=== PATIENT | female | born 1950 | race Caucasian/White ===

== ENCOUNTER → 2018-04-04 16:24 | Outpatient (CLI) | payer MEDICARE, SELFPAY ==
[2018-04-04 17:47] LABS: Vitamin B12 383 pg/mL (211-911)
[2018-04-04 17:50] LABS: AST(SGOT) 25 U/L (15-37); Alanine Aminotransfer ALT/SGPT 30 U/L (13-56); Albumin, Serum 3.7 g/dL (3.2-5.0); Alkaline Phosphatase 106 U/L (45-117); Anion Gap 7 (5-15); BUN 23 mg/dL (7-18); BUN/Creat Ratio 23.4 RATIO (10-20); Chloride 104 mmol/L (98-107); Creatinine, Serum 0.98 mg/dL (0.55-1.02); EST Glomerular Filtration Rate 59 mL/min (>60); Est Glom Filt Rate - Afr Amer 72 mL/min (>60); Ferritin 188 ng/mL (8-252); Globulin 3.8 g/dL (2.2-4.2); Glucose 92 mg/dL (74-106); Potassium 4.2 mmol/L (3.5-5.1); Protein, Total 7.5 g/dL (6.4-8.2); Sodium Level 141 mmol/L (136-145); Thyroid Stim Hormone (TSH) 3.61 uIU/mL (0.358-3.74)
[2018-04-04 17:52] LABS: Absolute Neutrophil Count 3.1 X10^3/uL (2.0-7.7); Basophil# 0.04 X10^3/uL; Basophil% 0.6 % (0-1); Eosinophils% 3.2 % (0-5); Hematocrit 40.7 % (37-47); Hemoglobin 13.2 g/dl (12.0-15.0); Lymphocyte % 36.8 % (19-41); Mean Corp Hgb Conc 32.4 g/gl (32-36); Mean Corpuscular Hgb 29.7 pg (27.0-32.0); Mean Corpuscular Volume 91.7 fL (81-99); Mean Platelet Vol. 10.9 fl (6.2-12.0); Monocyte% 9.6 % (0-10); Neutrophil # 3.09 X10^3/uL (2.7-7.7); Neutrophil % 49.5 % (47-70); Platelet Count 222 K/mm3 (150-450); RBC Distribution Width CV 13.2 % (11.6-14.6); RBC Distribution Width SD 43.6 fl (35.1-43.9); Red Blood Count 4.44 M/mm3 (4.2-5.4); White Blood Count 6.3 K/mm3 (4.4-11.0)
[2018-04-04 17:53] LABS: POSITIVE COUNT NO; POSITIVE DIFFERENTIAL NO; POSITIVE MORPHOLOGY NO
== END ==
PROVIDERS: Family Provider Family Medicine; PCP Family Medicine; Referring Provider Family Medicine; Visit Provider Family Medicine
DX: F33.1 Major depressive disorder, recurrent, moderate (principal); D64.9 Anemia, unspecified
CPT/HCPCS: 36415; 80053; 82607; 82728; 84443; 85025

== ENCOUNTER → 2018-04-28 09:55 | Outpatient (CLI) | payer MEDICARE, SELFPAY ==
[2018-04-28 10:18] LABS: Absolute Lymphocyte Count 1.76 X10^3/ul (0.83-4.51); Absolute Neutrophil Count 4.8 X10^3/uL (2.0-7.7); Basophil# 0.04 X10^3/uL; Basophil% 0.5 % (0-1); Eosinophil# 0.22 X10^3/uL; Eosinophils% 2.9 % (0-5); Hematocrit 42.7 % (37-47); Hemoglobin 14.1 g/dl (12.0-15.0); Lymphocyte # 1.76 X10^3/ul (4.0); Lymphocyte % 23.3 % (19-41); Mean Corpuscular Hgb 30.7 pg (27.0-32.0); Mean Corpuscular Volume 92.8 fL (81-99); Mean Platelet Vol. 10.3 fl (6.2-12.0); Monocyte# 0.67 X10^3/uL; Monocyte% 8.9 % (0-10); Neutrophil # 4.82 X10^3/uL (2.7-7.7); Platelet Count 223 K/mm3 (150-450); RBC Distribution Width CV 13.5 % (11.6-14.6); RBC Distribution Width SD 44.9 fl (35.1-43.9); White Blood Count 7.5 K/mm3 (4.4-11.0)
[2018-04-28 10:23] LABS: POSITIVE COUNT NO; POSITIVE DIFFERENTIAL NO; POSITIVE MORPHOLOGY NO
[2018-04-28 10:24] LABS: Erythrocyte Sedimentation Rate 16 mm/hr (0-30)
[2018-04-28 10:35] LABS: ALB/GLOB Ratio 0.9 RATIO (0.9-2.4); AST(SGOT) 25 U/L (15-37); Alanine Aminotransfer ALT/SGPT 36 U/L (13-56); Albumin, Serum 3.7 g/dL (3.2-5.0); Alkaline Phosphatase 112 U/L (45-117); Anion Gap 9 (5-15); BUN 35 mg/dL (7-18); BUN/Creat Ratio 31.2 RATIO (10-20); CRP < 2.90 mg/L (0.0-3.0); Calcium,Total 9.5 mg/dL (8.5-10.1); Chloride 103 mmol/L (98-107); Creatinine, Serum 1.12 mg/dL (0.55-1.02); EST Glomerular Filtration Rate 51 mL/min (>60); Est Glom Filt Rate - Afr Amer 62 mL/min (>60); Globulin 4.1 g/dL (2.2-4.2); Glucose 100 mg/dL (74-106); Potassium 4.3 mmol/L (3.5-5.1); Protein, Total 7.8 g/dL (6.4-8.2); Sodium Level 142 mmol/L (136-145)
[2018-04-30 13:08] LABS: pH, Stool 5.5 (7.0-7.5)
== END ==
PROVIDERS: Family Provider Family Medicine; PCP Family Medicine; Referring Provider Family Medicine; Visit Provider Family Medicine
DX: R19.7 Diarrhea, unspecified (principal)
CPT/HCPCS: 36415; 80053; 83630; 83986; 85025; 85652; 86140; 87177; 87209; 87506

== ENCOUNTER → 2018-11-08 15:29 | Outpatient (CLI) | payer MEDICARE, SELFPAY ==
[2018-11-08 18:10] LABS: Absolute Lymphocyte Count 2.27 X10^3/ul (0.83-4.51); Basophil# 0.05 X10^3/uL; Basophil% 0.8 % (0-1); Eosinophil# 0.21 X10^3/uL; Eosinophils% 3.3 % (0-5); Hematocrit 41.7 % (37-47); Hemoglobin 13.6 g/dl (12.0-15.0); Lymphocyte # 2.27 X10^3/ul (4.0); Lymphocyte % 35.5 % (19-41); Mean Corp Hgb Conc 32.6 g/gl (32-36); Mean Corpuscular Hgb 29.7 pg (27.0-32.0); Mean Platelet Vol. 10.9 fl (6.2-12.0); Monocyte# 0.87 X10^3/uL; Monocyte% 13.6 % (0-10); Neutrophil # 2.96 X10^3/uL (2.7-7.7); Neutrophil % 46.3 % (47-70); Platelet Count 219 K/mm3 (150-450); RBC Distribution Width CV 13.6 % (11.6-14.6); RBC Distribution Width SD 44.7 fl (35.1-43.9); Red Blood Count 4.58 M/mm3 (4.2-5.4); White Blood Count 6.4 K/mm3 (4.4-11.0)
[2018-11-08 18:11] LABS: POSITIVE COUNT NO; POSITIVE DIFFERENTIAL NO; POSITIVE MORPHOLOGY NO
[2018-11-08 18:36] LABS: Microalbumin,Random Urine 21.7 mg/L (NO RANGE EST.); Microalbumin:Creatinine Ratio 23.6 mg/g CRE (<30 mg/g CRE)
[2018-11-08 18:43] LABS: ALB/GLOB Ratio 1.1 RATIO (0.9-2.4); AST(SGOT) 31 U/L (15-37); Alanine Aminotransfer ALT/SGPT 46 U/L (13-56); Albumin, Serum 3.8 g/dL (3.2-5.0); Alkaline Phosphatase 113 U/L (45-117); Anion Gap 5 (5-15); BUN 44 mg/dL (7-18); BUN/Creat Ratio 37.6 RATIO (10-20); Calcium,Total 8.9 mg/dL (8.5-10.1); Chloride 104 mmol/L (98-107); Creatinine, Serum 1.17 mg/dL (0.55-1.02); EST Glomerular Filtration Rate 49 mL/min (>60); Est Glom Filt Rate - Afr Amer 59 mL/min (>60); Globulin 3.4 g/dL (2.2-4.2); Glucose 77 mg/dL (74-106); Potassium 3.9 mmol/L (3.5-5.1); Protein, Total 7.2 g/dL (6.4-8.2); Sodium Level 138 mmol/L (136-145); Thyroid Stim Hormone (TSH) 1.97 uIU/mL (0.358-3.74)
== END ==
PROVIDERS: Family Provider Family Medicine; PCP Family Medicine; Referring Provider Family Medicine; Visit Provider Family Medicine
DX: I10 Essential (primary) hypertension (principal); F33.1 Major depressive disorder, recurrent, moderate
CPT/HCPCS: 36415; 80053; 82043; 82570; 84443; 85025

== ENCOUNTER → 2018-11-27 14:53 | Outpatient (CLI) | payer MEDICARE, SELFPAY ==
[2017-04-25 11:45] VITALS: BMI 27.5
--- NOTE | 2018-11-27 14:55 | BI_ITS ---
MAMMOGRAPHY - BILATERAL SCREENING REASON FOR EXAM: Female, 68 years old. Routine annual screening examination. PERTINENT HISTORY: Aunt with breast cancer. TECHNIQUE: Digital bilateral breast tasha (3D mammographic acquisition) in the CC and MLO projections. 2-D mediolateral oblique (MLO) and craniocaudad (CC) views of both breasts were obtained. CAD: Full Field Digital Mammography with Computer Added Detection was performed. COMPARISON: Comparison is made with prior study dated December 02, 2015 and January 27, 2012. FINDINGS: Breast Composition: The breasts are almost entirely fatty. There are no dominant masses or suspicious calcifications. No other significant abnormalities are identified. There has been no significant change since the prior study. BI/SCREENING MAMM (CAD), BILAT IMPRESSION: Stable bilateral screening mammogram. Yearly follow-up mammogram recommended. (A) ASSESSMENT CATEGORY: BIRADS Category 1: Negative. A letter regarding these results will be sent to the patient by the facility within 30 days. Approximately 10% of breast cancers are not detected by mammography. A normal mammogram should not delay biopsy of a clinically suspicious abnormality. [id number] Electronically Signed: Jermaine Herrera, at 9:10 EDT , Service support ,
== END ==
PROVIDERS: Family Provider Family Medicine; PCP Family Medicine; Referring Provider Family Medicine; Visit Provider Family Medicine
DX: Z12.31 Encounter for screening mammogram for malignant neoplasm of breast (principal)
CPT/HCPCS: 77063; 77067

== ENCOUNTER 2019-06-03 17:34 | Outpatient (RCR) | payer MEDICARE, SELFPAY ==
--- NOTE | 2019-06-03 19:14 | HP.PTEVAL ---
Patient's Visit Information OSCAR ROMAN is a 69 year old F referred to Physical Therapy by Shawn Farr MD with a diagnosis of BILATERAL FOOT DROP AND UNSTEADINESS. Date of Evaluation: 06/03/19 Physical Therapist: Shawn Lott, PT, Cert MDT, OCS - Visit Plan Frequency: 2x /Week Duration: 4 Weeks Plan: PT INTERVENTIONS LE STRENGTHENING,FUNCTIONAL STRENGTHENING,BALANCE PROGRAM,CONDITIONING - Subjective Findings: This 69 y/o female presents to physical therapy with bilateral foot drop and unsteady with gait. Patient has deficits with weakness in legs especially with foot drops and unsteady with gait. Patient also had son 2 years ago caused stress. Patient also polio as a child affects legs. Seen DR Farr for walking and balanace. Recommended PT . Patient has no falls ,but uses cane for walking and balance. Patient denies parathesia/tingling. Patient has lumbar surgery laminectomy and bilateral TSR ,LEFT THR,appy,bowel reconstruction,right foot surgery from polio. Patient condition affects ADL'S and housework tasks. SOCIAL: single. VOCATION: retired - Objective POSTURE: mild foward posture. GAIT: ambulates with antalgic gait with stepage gait with foot and altweral sway. BALANCE: good - with cane. STAIRS: one step at a time. ATROPHIED: R > L CAF. FLEXABLITY: mild hams tight. MMT: quad/hams 4-/5,hip flexion 3+/5 ,abd 3+/5 ankle dorsiflexion 3+/5 R,4-/5 L - Balance Scores Functional Gait Assessment Score: 9 % Disability: 70.0000 CATSIB Score (Max score 120 seconds): 75 - Goals Goal 1:: Independant with HEP Goal Time Frame: 4-6 Weeks Goal 2:: Patient to increase strength BLE by 4/5 quads/hams and hips 4-/5 to uimprove gait. Goal Time Frame: 4-6 Weeks Goal 3:: Pateint improve CATSIB score by 5 points > to improve gait. Goal Time Frame: 4-6 Weeks Goal 4:: Patient to improve functional gait assessment score by 5-10 points to improve gait/balance Goal Time Frame: 4-6 Weeks Goal 5:: Patient to improve LFES score by 5-10 points to improve QOL. Goal Time Frame: 4-6 Weeks - Rehabilitation Potential Physical Therapy Diagnosis: This patient has weakenss LE along with balance impairments causes deficits with ADL'S and housework tasks thus benifit from skilled PT Rehabilitation Potential: Good - Anticipated Interventions Patient/Client Instruction: Educate patient on: Condition, Plan of Care For the Purpose of:: To decrease pain, To increase ROM, To improve muscle performance and motor function, To improve ability to perform ADL's, To increase tolerance to activity/condition/position, To improve ability of physical actions for home/community/work/leisure, To improve health of tissue, To decrease soft tissue restriction, To reduce risk of recurrence, To improve ability to perform tasks related to life management Therapeutic Exercise to Include: Strength training, Endurance training, Balance training, Gait and locomotor training Comment: BLE For the Purpose of:: To decrease pain, To increase ROM, To improve muscle performance and motor function, To improve ability to perform ADL's, To increase tolerance to activity/condition/position, To improve ability of physical actions for home/community/work/leisure, To improve gait and locomotor functions, To increase flexibility/ROM, To improve endurance, To improve balance, To improve ability to perform tasks related to life management Thank you for the opportunity to evaluate your patient. For Medicare and Medicare HMO plans, please review the plan of care and approve it. It will need to be FAXED BACK to us at [phone] for Medicare purposes. For Medicare only, by signing this I certify the plan of care. Please let me know if there are questions or concerns regarding this plan of care. Physician Signature: Date:
== END 2019-06-03 19:00 | disposition home or self-care (01) ==
LOC: PT 17:34
PROVIDERS: Family Provider Family Medicine; PCP Family Medicine; Referring Provider Psychiatry & Neurology Neurology; Visit Provider Psychiatry & Neurology Neurology
DX: M21.372 Foot drop, left foot (principal); M21.371 Foot drop, right foot; R26.81 Unsteadiness on feet
CPT/HCPCS: 97110; 97162

== ENCOUNTER → 2019-12-25 08:27 | Outpatient (CLI) | payer MEDICARE, SELFPAY ==
[2017-04-25 11:45] VITALS: BMI 27.5
[2019-12-25 10:27] LABS: Absolute Lymphocyte Count 1.35 X10^3/uL (0.83-4.51); Absolute Neutrophil Count 4.6 X10^3/uL (2.0-7.7); Basophil# 0.06 X10^3/uL; Basophil% 0.9 % (0-1); Eosinophil# 0.16 X10^3/uL; Eosinophils% 2.4 % (0-5); Hematocrit 43.5 % (37-47); Hemoglobin 13.7 g/dL (12.0-15.0); Lymphocyte # 1.35 X10^3/ul (4.0); Mean Corp Hgb Conc 31.5 g/dL (32-36); Mean Corpuscular Hgb 29.2 pg (27.0-32.0); Mean Corpuscular Volume 92.8 fL (81-99); Mean Platelet Vol. 10.7 fl (6.2-12.0); Monocyte# 0.52 X10^3/uL; Monocyte% 7.7 % (0-10); NRBC Flagged by Analyzer 0 % (0-5); Neutrophil # 4.64 X10^3/uL (2.7-7.7); Neutrophil % 68.6 % (47-70); Platelet Count 234 K/mm3 (150-450); RBC Distribution Width CV 13.4 % (11.6-14.6); RBC Distribution Width SD 45.3 fl (35.1-43.9); Red Blood Count 4.69 M/mm3 (4.2-5.4); White Blood Count 6.8 K/mm3 (4.4-11.0)
[2019-12-25 10:41] LABS: Vitamin B12 342 pg/mL (211-911)
[2019-12-25 11:31] LABS: AST(SGOT) 24 U/L (15-37); Alanine Aminotransfer ALT/SGPT 32 U/L (13-56); Albumin, Serum 3.8 g/dL (3.2-5.0); Alkaline Phosphatase 111 U/L (45-117); Anion Gap 9 (5-15); BUN 26 mg/dL (7-18); BUN/Creat Ratio 24.1 RATIO (10-20); Calcium,Total 9.9 mg/dL (8.5-10.1); Chloride 100 mmol/L (98-107); Cholesterol 287 mg/dL (200); Creatinine, Serum 1.08 mg/dL (0.55-1.02); EST Glomerular Filtration Rate 53 mL/min (>60); Est Glom Filt Rate - Afr Amer 64 mL/min (>60); Ferritin 96 ng/mL (8-252); Globulin 3.7 g/dL (2.2-4.2); Glucose 105 mg/dL (74-106); High Density Lipoprotein 52 mg/dL; Iron 66 ug/dL (50-170); Iron Binding Capacity,Total 391 ug/dL (250-450); Potassium 4.2 mmol/L (3.5-5.1); Protein, Total 7.5 g/dL (6.4-8.2); Sodium Level 138 mmol/L (136-145); Thyroid Stim Hormone (TSH) 1.29 uIU/mL (0.358-3.74); Triglycerides 303 mg/dL; Very Low Density Lipoprotein 61 mg/dL (5-40)
== END ==
PROVIDERS: PCP Family Medicine; Referring Provider Family Medicine; Visit Provider Family Medicine
DX: G25.81 Restless legs syndrome (principal); R23.1 Pallor; I10 Essential (primary) hypertension
CPT/HCPCS: 36415; 80053; 80061; 82607; 82728; 82746; 83540; 83550; 84443; 85025

== ENCOUNTER → 2020-06-09 12:10 | Outpatient (CLI) | payer MEDICARE, SELFPAY ==
[2017-04-25 11:45] VITALS: BMI 27.5
[2020-06-09 15:34] LABS: Absolute Lymphocyte Count 1.59 X10^3/uL (0.83-4.51); Absolute Neutrophil Count 4.8 X10^3/uL (2.0-7.7); Basophil# 0.05 X10^3/uL; Basophil% 0.7 % (0-1); Eosinophil# 0.16 X10^3/uL; Eosinophils% 2.2 % (0-5); Hematocrit 43.8 % (37-47); Hemoglobin 13.6 g/dL (12.0-15.0); Lymphocyte # 1.59 X10^3/ul (4.0); Lymphocyte % 21.8 % (19-41); Mean Corp Hgb Conc 31.1 g/dL (32-36); Mean Corpuscular Hgb 28.6 pg (27.0-32.0); Monocyte# 0.64 X10^3/uL; Monocyte% 8.8 % (0-10); NRBC Flagged by Analyzer 0 % (0-5); Neutrophil # 4.84 X10^3/uL (2.7-7.7); Neutrophil % 66.1 % (47-70); Platelet Count 240 K/mm3 (150-450); RBC Distribution Width CV 13.4 % (11.6-14.6); RBC Distribution Width SD 45.7 fl (35.1-43.9); Red Blood Count 4.76 M/mm3 (4.2-5.4); White Blood Count 7.3 K/mm3 (4.4-11.0)
[2020-06-09 15:59] LABS: ALB/GLOB Ratio 1.1 RATIO (0.9-2.4); AST(SGOT) 25 U/L (15-37); Alanine Aminotransfer ALT/SGPT 33 U/L (13-56); Alkaline Phosphatase 109 U/L (45-117); Anion Gap 6 (5-15); BUN 36 mg/dL (7-18); BUN/Creat Ratio 30.3 RATIO (10-20); Calcium,Total 9.7 mg/dL (8.5-10.1); Chloride 101 mmol/L (98-107); Creatinine, Serum 1.19 mg/dL (0.55-1.02); EST Glomerular Filtration Rate 48 mL/min (>60); Est Glom Filt Rate - Afr Amer 57 mL/min (>60); Ferritin 116 ng/mL (8-252); Globulin 3.8 g/dL (2.2-4.2); Glucose 94 mg/dL (74-106); Potassium 4.4 mmol/L (3.5-5.1); Protein, Total 7.8 g/dL (6.4-8.2); Sodium Level 138 mmol/L (136-145); Thyroid Stim Hormone (TSH) 1.83 uIU/mL (0.358-3.74)
[2020-06-09 16:29] LABS: Prothrombin Time (Protime)PT. 12.6 SECONDS (11.7-14.9)
[2020-06-09 16:30] LABS: Partial Thromboplast Time 28.9 Seconds (24.1-36.2)
[2020-06-11 15:51] LABS: Magnesium 2.1 mg/dL (1.6-2.6)
== END ==
PROVIDERS: Anesthesiology; PCP Family Medicine; Visit Provider Family Medicine
DX: Z01.818 Encounter for other preprocedural examination (principal); G25.81 Restless legs syndrome; F32.9 Major depressive disorder, single episode, unspecified
CPT/HCPCS: 36415; 80053; 82728; 83735; 84443; 85025; 85610; 85730

== ENCOUNTER 2020-06-24 07:26 | Observation (INO) | payer MEDICARE, SELFPAY ==
[2017-04-25 11:45] VITALS: BMI 27.5
--- NOTE | 2020-06-09 11:12 | PCM.HP.BLA ---
History and Physical History and Physical Patient Name: Elinor Woo : 1950 From: [facility] NP DATE OF SURGERY: 06/24/2020 SCHEDULED PROCEDURE: Right total hip arthroplasty HISTORY OF PRESENT ILLNESS: Preoperative history and physical exam was performed on June 09, 2020. This is a 70-year-old female has been having ongoing right hip pain for a year that has significantly increased over the last 6 months. She describes the pain as intermittent and sharp. The pain is 3 on a scale of 10 at best and 9 on a scale of 10 with activity. The pain is made worse with stairs and walking. The patient reports start up pain. The pain is located over the lateral hip and in the right groin. The patient reports inability to perform her normal activities of daily living without pain including dressing and undressing. She reports inability to participate in leisure activities such as shopping without pain. The patient reports tripping and stumbling secondary to the right hip pain. Previous treatments attempted consist of rest with minimal relief. The patient has taken extra strength Tylenol, naproxen, ibuprofen and tramadol with minimal to no relief. She does ambulate with the use of a walker. The patient has a history of polio and chronic atrophy on the right side. The patient has a medical history pertinent for hypertension, hypercholesterolemia, anxiety, depression and restless leg syndrome. She denies chest pain, fevers, chills, shortness of breath, difficulty breathing or recent infections. Surgical clearance will be obtained from her primary care provider Dr. Grimes. After failing conservative measures and discussing treatment options with Dr. Fahad Cavanaugh the patient is to proceed with a right total hip arthroplasty. REVIEW OF SYSTEMS: ROS: Const: Denies anorexia, anxiety, change in appetite, fever and weight change,hard of hearing, and vision problems. CV: Denies chest pain, heart murmur, irregular heartbeat and peripheral vascular disease. Resp: Denies asthma, cough, pneumonia, sleep apnea, SOB, tuberculosis and wheezing. GI: Denies constipation, diarrhea, heartburn, nausea, bloody stools and vomiting, and difficulty swallowing. : Genital: reports irregular menstrual periods. Urinary: denies incontinence. Musculo: Reports trouble walking, limp and weakness(Rt leg), but denies leg swelling. Skin: Denies Raynaud's, history of shingles and tattoo. Neuro: Denies ambulatory dysfunction, dizziness, numbness/tingling and tremor. Psych: Denies anxiety, depression, insomnia, mental illness and stress. Prateek/Lymph: Denies anemia, bleeding/bruising tendency and past transfusion. Reviewed, no changes. PAST MEDICAL HISTORY: Advance Care Plan: Other Directive, P.O.A. Effective Date: 01/16/2017 Other Directive, LIVING WILL Effective Date: 01/16/2017 PMH: Medical Problems: High Blood Pressure, Restless Leg, Hypercholesterolemia, Anxiety, Depression Accidents: None Surgical Hx: Appendectomy - (1961) [place] Hip Replacement - (2003) L Allie - [place] Bowel Resection - (1989) [place] RT Leg - Multiple surgeries post polio 1956 thru 1993 RT Shoulder Replacement - (10/2006) DR. DILL @ [facility] Shoulder Arthroscopy/Acromioplasty - (03/08/2012) OLIVIA @ [facility] Laminectomy - (09/30/2014) OLIVIA @ [facility] Knee Arthroscopy LT - (02/19/2015) [email or web address] Reverse Total Shoulder Replacement - (04/25/2017) [email or web address] Anesthesia Complications: None Assistive Devices: Glasses, Walker, Cane Reviewed and updated. SOCIAL HISTORY: SH: Marital: .Occupation: Retired.Work Status: Retired.Hand Dominance: Right-handed. Personal Habits: Tobacco Use: Patient is a former smoker.Cigarette Use: Former - 1/2 pk/day for 35 yrs .Alcohol: Has consumed alcohol in the past.Drug Use: Denies Use.Enjoy Exercising: Daily. Reviewed and updated. VITALS: Ht: 66 Wt: 231lb Wt k.782 BMI: 37.3 BP: 129/83 Pulse: 90 Resp: 16 T: 97.0 T: 36.1C Pain Level: 4 ALLERGIES: Penicillin MEDICATIONS: Tramadol HCL 50 mg 1-2 by mouth every 6 hours as needed pain, Losartan 50 mg 1 tab PO bid, Melatonin 10 mg 1 TAB PO qhs, Indapamide 1.25 mg 1 tab PO daily, Pramipexole Dihydrochloride 1 mg 2 tabs PO qhs, Bupropion Hydrochloride ER (XL) 300 mg 1 by mouth every day, Atorvastatin Calcium 10 mg 1 by mouth every day, Gabapentin 600 mg 1 by mouth three times a day, Mirtazapine 15 mg 1 by mouth every day, Tylenol 325 mg prn, Ibuprofen 200 200 mg 2 by mouth as needed, Naproxen Sodium 220 mg prn PRE-OP EXAM: General appearance:NORMAL Other: Eyes: Conjunctivae and lids: NORMAL Pupils: ERR Ears, Nose, Mouth, and Throat: NORMAL Other: Inspection of lips, teeth and gums: NORMAL Other: Respiratory: Assessment of respiratory effort: NORMAL Other: Auscultation of lungs: clear to auscultation no wheezes, rhonchi or rales. Cardiovascular: Auscultation of heart: regular rate and rhythm, no murmurs, gallops or rubs. Gastrointestinal: Exam of abdomen: soft, nontender, nondistended bowel sounds present. Neurological: see below Psychiatric: Orientation to time, place and person: NORMAL Other: Mood and affect: NORMAL Other: PHYSICAL EXAMINATION: Patient ambulate with an antalgic gait. She does use a walker to ambulate. Skin is clean, dry and intact. Right leg is 3 mm shorter than the left. Chronic calf and thigh atrophy when compared to left side. Obligatory external rotation with flexion. Flexion to 80. Internal rotation to 10. External rotation to 20. Pain is rated produced with flexion, adduction and internal rotation. Hip flexion strength 3/5. Sensation intact to saphenous, sural, deep peroneal and tibial nerve distributions. IMAGING STUDIES: 3 views of right hip including weightbearing AP pelvis and AP hip and crossfire lateral obtained on June 01, 2020 reviewed reveals joint space narrowing, subchondral sclerosis and osteophyte formation consistent with severe stage IV hypertrophic osteoarthritis. IMPRESSION: 1. Osteoarthritis, right hip 2. Hypertension 3. Restless leg syndrome 4. Hypercholesterolemia 5. Depression and anxiety 6. Obesity, BMI 37.3 PLAN: Dr. Fahad Cavanaugh did discuss and review with the patient all treatment options including surgical versus nonsurgical. The patient does wish to proceed with the above-stated procedure. Potential risk, benefits and complications of the procedure were discussed in detail including but not limited to , infection, nerve and blood vessel damage, persistent pain, numbness, tingling, paresthesia, blood clot, pulmonary embolism and requirement for possible further surgery. The patient expressed full understanding and has no further questions for the doctor. The patient does agree to proceed with the above-stated procedure and has signed the surgery consent form. Patient was instructed to bring a walker with her to the hospital the day of her surgery. Discussed with the patient the risks associated with the COVID-19 virus including the risk of exposure while at the hospital. The patient was reassured local hospitals have low infection rates and taken all necessary precautions to limit patient exposure to COVID-19. Limiting the patient's time in the hospital may decrease their exposure to COVID-19. The patient was notified that we will need to comply with any screening or testing the hospital wishes to perform and that surgery may be delayed for any positive test results. This dictation was created using voice recognition software. Phonetic and/or grammatical errors may exist. ___ I have re-examined the patient. There are no clinical changes since date of exam. ___ See progress notes for changes. ___ Dictated on admission Date: Time: Signature:
--- NOTE | 2020-06-16 10:42 | EKG12_ITS ---
Test Reason : PREOP Blood Pressure : / mmHG Vent. Rate : 094 BPM Atrial Rate : 094 BPM P-R Int : 214 ms QRS Dur : 104 ms QT Int : 386 ms P-R-T Axes : 047 066 068 degrees QTc Int : 482 ms Sinus rhythm with 1st degree A-V block Otherwise normal ECG Confirmed by NIGHAT COTTER, DWAYNE ([id number]), digital editor TRINITY ORTIZ ([id number]) on 06/17/2020 9:39:49 AM Referred By: Fahad Cavanaugh Confirmed By:DWAYNE DISLA MD
[2020-06-23 13:19] VITALS: RESP 16; O2SAT 94
[2020-06-24] VITALS (15 sets, daily range): BP systolic 94–157; BP diastolic 63–92; PULSE 84–98; RESP 16–18; TEMP 36.1–37.2; O2SAT 94–100; BMI 36.6; BMI 37.3
[2020-06-24] MEDS: Lactated Ringers 1,000 ML 999 ML IV ×2 (06:30→09:16)
--- NOTE | 2020-06-24 07:27 | RAD_ITS ---
STUDY: X-RAY - PELVIS AND RIGHT HIP REASON FOR EXAM: Female, 70 years old. Post op total hip. TECHNIQUE: 2 views of the pelvis and hip. COMPARISON: None. FINDINGS: Status post right total hip replacement. There is good alignment. Postoperative soft tissue changes. The patient is also status post left total hip replacement. This is unchanged. RAD/Hip Min 2 Views (Portable) IMPRESSION: Status post right total hip replacement. Good alignment. Electronically Signed: Jermaine Herrera, at 12:40 EST , Service support ,
[2020-06-24 07:40] LABS: Bedside Glucose 76 mg/dL (70-110)
[2020-06-24] MEDS: Gabapentin 600 MG Tablet PO ×2 (07:52→21:41)
[2020-06-24] MEDS: dexAMETHasone 10 MG/ML Vial IV (08:56)
--- NOTE | 2020-06-24 09:45 | RAD_ITS ---
STUDY: X-RAY - PELVIS AND RIGHT HIP REASON FOR EXAM: Female, 70 years old. ERAS, RIGHT TOTAL HIP ANTERIOR APPROACH. TECHNIQUE: 3 views of the pelvis and hip. COMPARISON: None. FINDINGS: Intraoperative imaging provided for right total hip replacement. RAD/HIP, UNI W/ Pelvis 2-3 Views IMPRESSION: Intraoperative imaging provided for right total hip replacement. Electronically Signed: Jermaine Herrera, at 14:37 EST , Service support ,
--- NOTE | 2020-06-24 10:18 | PCM.OPRPT ---
Report of Operation Date of Procedure: 06/24/20 Pre-Operative Diagnosis: Right hip primary osteoarthritis Post-Operative Diagnosis: Right hip primary osteoarthritis Surgery/Procedure Performed:: Right minimally invasive direct anterior hip replacement Description of Surgical Findings:: Stable hip with equal leg lengths customs agent: John Caputo Type of Anesthesia:: Spinal Anesthesiologist: Elliott Quinn Special Medications: Cleocin and vancomycin, 1 g TXA at incision, 1 g TXA closure, 10 mg Decadron, joint cocktail (5 mg Duramorph, 30 mL of 0.5% Ropivicaine, 1000 units of epinephrine, 30 mg of Toradol) Specimen's removed: Bony cuts Estimated Blood Loss (mL): 350 Fluids Replaced: 1200 mL crystalloid Description of Procedure: Components used: 1. Accolade 2 [place] femoral stem size 4 127? 2. [place] trident 2 acetabular shell size 54 mm 3. [place] X3 polyethylene E 4. Bob Biolox delta 36mm, -2.5mm femoral head Brief history operative indications: 70 yo F who failed conservative measures for their hip osteoarthritis. X-rays were consistent with osteoarthritis including joint space narrowing, osteophyte formation and subchondral cysts. Total hip replacement was discussed with the patient with risks and benefits including but not limited to blood loss, DVTs, PEs, neurovascular damage, dislocation, general risks of anesthesia including loss of life. Patient demonstrated an understanding medical clearance is obtained the patient was consented for surgery. Procedure: On the date of procedure the patient's R hip was marked in the preoperative area. Patient was then taken back to the operating room where anesthesia assumed control of the C-spine and airway and administered anesthetic. Patient was transferred to the operating table and placed in the supine position. The hips were placed at the break of the bed and a sacral bump was placed. The R lower extremity was then prepped out in a sterile fashion using chlorhexidine while the surgeon scrubbed. The PA was vital in the positioning of the patient. Upon reentering the room the R lower extremity was draped in the standard orthopedic fashion and the incision was marked. A timeout was called and everyone agreed upon the side, the site, the procedure be performed, antibody given, and patient's identity. At this time incision was made through skin, subcutaneous tissue, and fat down to fascia. The fascia was then incised and the TFL was retracted laterally. A retractor was placed on the lateral border of the femoral neck. Attention was directed to the inferior portion of the approach and all crossing vessels were identified and appropriately coagulated. A retractor was then placed on the medial portion of the femoral neck. The anterior capsule was then cleared of all soft tissue and then H shaped capsulotomy was made. The retractors were then placed inside the capsule. The femoral neck was identified and a cleanup cut was made. At this time a power corkscrew was used to remove the femoral head. Attention was then turned toward the acetabulum where the soft tissues were appropriately retracted and the acetabulum was sequentially reamed to 542 mm. A 54 mm cup was then selected and impacted into place. Acetabular liner was impacted into place and locking mechanism was verified. The position of the acetabular cup was then verified under live fluoroscopy. Attention was then turned to the femur. Soft tissue releases on the medial and lateral femoral neck were appropriately done, the leg was externally rotated and lateralized. A King retractor was placed medially and proximally to the greater trochanter this allowed appropriate visualization and exposure of the femoral canal. Rongeour was then used to remove excess lateral bone. A canal finder and entry broach were used to open the proximal canal. Once we verified we were down the femoral canal we subsequently broached up to a size 4 femur. The appropriate neck was placed in the previously selected head was trialed with a -2.5 mm neck. Traction was pulled and the hip was reduced with internal rotation. Once it was appropriately reduced and stability was checked. Patient was unstable posteriorly. At this point took x-rays to verify appropriate leg lengths and offset as well as version of the acetabulum. Based on our findings we dislocated the hip we used the edge impactor to dial in more anteversion on the acetabulum. We then changed the neck to the high offset neck. We again reduced the hip with traction and internal rotation. This time we had minimal shuck, equal leg lengths and appropriate stability with hyperextension and external rotation as well as with 90? flexion and internal rotation. Fluoroscopy was then also used to verify the position of the components and leg lengths using the contralateral side for comparison. The trial components were then dislocated the proximal femur was again exposed and the components were removed from the wound. The final components were verified and opened. The wound was copiously irrigated out with normal saline. The acetabulum was checked for any residual debris. The final components were placed and impacted. Traction and internal rotation were again used to reduce the hip. After adequate reduction the hip remained stable with appropriate leg lengths. The final components were once again checked with live fluoroscopy and were found to be satisfactory. The wound was then copiously irrigated with normal saline once more, and hemostasis was obtained. Closure was then done using #1 Vicryl runner to close the fascia. A 2-0 vicryl interuppted sutures were used to close the subcutaneous skin. A 3-0 Monocryl and Steri-Strips were used for final skin closure. A Silverlon dressing was placed. Patient was awakened by anesthesia and transferred to the [facility]. Patient was then transferred to the PACU for recovery. Postoperative plan: Patient will get 24 hours postop antibiotics. Patient will get in-house physical therapy and will be weight-bear as tolerated. Patient will follow up in office in 2 weeks for a wound check and x-rays. Aspirin 81 mg twice daily. During the course of the procedure the physician computer repairer (PE) played a vital role. Their intimate knowledge of my steps in the procedure aided in safe and expedient completion of the procedure. The PE played a vital rolls in positioning particularly in obtaining the appropriate positioning of the sacral bump. The PE was also vital in the retraction of soft tissues during the exposure and especially the femoral work as this is a vital part of the procedure to prevent complications and fractures. The PE was also vital and protecting soft tissues during times of bony cuts and reaming. He also played a vital role in closure with my direct supervision. The PE was also important during reduction and dislocation of the joint and trials intraoperatively. - Complications No intraoperative complications - Admit VTE Documentation VTE Present on Admission: No VTE Mechan Device Prophylaxis: SCD's, Thigh High ELEAZAR Hose VTE Pharm Prophylaxis ordered?: Yes
[2020-06-24] MEDS: Lactated Ringers 1,000 ML 125 ML IV ×2 (12:21→15:13)
[2020-06-24] MEDS: Acetaminophen 500 MG Tablet 1000 MG PO ×2 (15:14→21:41)
[2020-06-24] MEDS: Aspirin 81 MG TAB.CHEW PO (15:15)
[2020-06-24] MEDS: Famotidine 20 MG Tablet PO (15:15)
[2020-06-24] MEDS: buPROPion (XL) 300 MG TABLET.XL PO (17:54)
[2020-06-24] MEDS: Losartan Potassium 50 MG Tablet PO (17:55)
[2020-06-24] MEDS: oxyCODONE 5 MG Tablet PO (17:57)
--- NOTE | 2020-06-24 20:43 | PN_ITS ---
Subjective: Patient was seen and examined today at the request of orthopedic surgery for medical management following a right minimally invasive direct anterior hip replacement. At the time my examination this afternoon, patient is standing with physical therapy with the use of a walker and does not appear to be in any distress. He does not complain of any shortness of breath, chills, or fever. Patient's chronic medical problems include essential hypertension and osteoarthritis. - Physical Exam Vitals/I&O's: Vital Signs Temp Pulse Resp BP Pulse Ox 97.0 F L 96 16 126/63 H 95 06/24/20 20:20 06/24/20 20:20 06/24/20 20:20 06/24/20 20:20 06/24/20 20:20 Oxygen Flow Rate (L/min) 6 Oxygen Delivery Method Room Air Weight: 105 kg Body Mass Index (BMI) 37.3 Intake and Output for Last 24 Hours 06/22/20 06/23/20 06/24/20 23:59 23:59 23:59 Intake Total 4241.5 / 4241.5 Output Total 1300 / 1300 Balance 2941.5 / 2941.5 General: Alert, Oriented x3, Cooperative, No apparent distress, Well developed, Well nourished HEENT: Atraumatic, PERRLA, EOMI, Normocephalic Oral: Moist Mucosa Neck: Supple, No JVD, Trachea Midline, Thyroid Normal Size and Texture Lungs: Clear to auscultation, Normal air movement, No rhonchi, No wheeze, No rales Cardiovascular: Regular rate, Regular Rhythm, Normal S1, Normal S2, No murmurs, PMI Normal, No rub noted, No Gallop Abdomen: Bowel Sounds Present, Soft, Non Tender, Non-Distended Extremities: No clubbing, No cyanosis, Capillary Refill Less than 3 Seconds Skin: No rashes Neurological: Cranial nerves II-XII grossly intact, Neuro grossly intact, Sensory exam intact to light touch and pain, Coordination normal Psych/Mental Status: Normal Affect, Appropriate, Alert and oriented to time, place, person, mood and affect Microbiology Past 72 Hours 06/23/20 10:40 Interface Orders SARS-CoV-2 Antigen (Rapid) - Final Laboratory Results 06/24/20 07:35: POC Glucose 76 Current Medications Acetaminophen (Acetaminophen 500 Mg Tablet) 1,000 mg PO Q8 [facility] Last Admin: 06/24/20 15:14 Dose: 1,000 mg Documented by: Aspirin (Aspirin 81 Mg Tab.Chew) 81 mg PO BIDCM [facility] Last Admin: 06/24/20 15:15 Dose: 81 mg Documented by: Atorvastatin Calcium (Atorvastatin Calcium 20 Mg Tablet) 20 mg PO QHS [facility] Bupropion HCl (Bupropion (Xl) 300 Mg Tablet.Xl) 300 mg PO DAILY [facility] Last Admin: 06/24/20 17:54 Dose: 300 mg Documented by: Enteral Nutritional Formula (Ensure Surgery 237 Ml Liquid) 237 ml PO TIDCM [facility] Last Admin: 06/24/20 15:16 Dose: Not Given Documented by: Famotidine (Famotidine 20 Mg Tablet) 20 mg PO DAILY [facility] Last Admin: 06/24/20 15:15 Dose: 20 mg Documented by: Gabapentin (Gabapentin 600 Mg Tablet) 600 mg PO QHS [facility] Lactated Ringer's () 1,000 mls @ 125 mls/hr IV .Q8H [facility] Last Infusion: 06/24/20 20:13 Dose: 0 mls/hr Documented by: Clindamycin Phosphate 600 mg/ (Dextrose) 54 mls @ 100 mls/hr IV Q6H [facility] Stop: 06/25/20 03:33 Last Infusion: 06/24/20 16:00 Dose: Infused Documented by: Vancomycin HCl 1,500 mg/ (Sodium Chloride) 530 mls @ 250 mls/hr IV X1 [facility] Stop: 06/24/20 22:07 Last Admin: 06/24/20 20:13 Dose: 250 mls/hr Documented by: Sodium Chloride () 250 mls @ 15 mls/hr IV .[id number] PRN PRN Reason: Saline Flush Sodium Chloride () 250 mls @ 15 mls/hr IV .[id number] PRN PRN Reason: Additional IVPB Infusion Indapamide (Indapamide 2.5 Mg Tablet) 1.25 mg PO DAILY [facility] Ketorolac Tromethamine (Ketorolac 15 Mg/Ml Vial) 15 mg IV Q6H PRN PRN PRN Reason: Pain Score 1-5 Stop: 06/26/20 07:27 Losartan Potassium (Losartan Potassium 50 Mg Tablet) 50 mg PO BID [facility] Last Admin: 06/24/20 17:55 Dose: 50 mg Documented by: Melatonin (Melatonin 10 Mg Tablet) 10 mg PO QHS [facility] Meloxicam (Meloxicam 7.5 Mg Tablet) 7.5 mg PO BID [facility] Morphine Sulfate (Morphine 2 Mg/Ml Syringe) 2 - 4 mg IV Q2H PRN PRN PRN Reason: Pain Score 4-10 Morphine Sulfate (Morphine 4 Mg/Ml Syringe) 2 - 4 mg IV Q2H PRN PRN PRN Reason: Pain Score 4-10 Ondansetron HCl (Ondansetron 4 Mg/2 Ml Vial) 4 mg IV Q8H PRN PRN PRN Reason: NAUSEA Oxycodone HCl (Oxycodone 5 Mg Tablet) 5 - 10 mg PO Q4H PRN PRN PRN Reason: Pain Score 4-10 Last Admin: 06/24/20 17:57 Dose: 5 mg Documented by: Pramipexole Dihydrochloride (Pramipexole Di-Hcl 0.5 Mg Tablet) 0.5 mg PO QHS [facility] Promethazine HCl (Promethazine 25 Mg/Ml Syringe) 12.5 mg IM Q6H PRN PRN; Viridiana col PRN Reason: NAUSEA/VOMITING Senna/Docusate Sodium (Senna/Docusate Sodium 1 Tablet) 2 tablet PO BID [facility] Last Admin: 06/24/20 17:05 Dose: Not Given Documented by: Sodium Chloride (0.9% Saline Lock 10 Ml Syringe) 10 - 40 ml IV UD PRN PRN Reason: SALINE FLUSH Medical Necessity - Tobacco Use Smoking Status: Former smoker Tobacco Use: Non-smoker Assessment/Plan All Active Problems Insomnia (Acute) #1 essential hypertension-patient is currently on indapamide and losartan, blood pressure will be monitored #2 osteoarthritis #3 hyperlipidemia #4 chronic depression #5 postop day 0 right hip replacement. Inpatient E&M: 55613 Subs Hosp L2
[2020-06-24] MEDS: MELATONIN 10 MG TABLET PO (21:41)
[2020-06-24] MEDS: Senna/Docusate Sodium 1 Tablet 2 TABLET PO (21:41)
[2020-06-24] MEDS: Pramipexole Di-HCl 0.5 MG Tablet PO (21:41)
[2020-06-24] MEDS: Mirtazapine 15 MG Tablet PO (21:41)
[2020-06-24] MEDS: Atorvastatin Calcium 20 MG Tablet PO (21:42)
[2020-06-25] MEDS: Ketorolac 15 MG/ML Vial IV (02:07)
[2020-06-25] MEDS: 0.9% Saline Lock 10 ML Syringe IV (02:07)
[2020-06-25 02:22] VITALS: BP 97/67; PULSE 93; RESP 16; TEMP 36.7; O2SAT 97
[2020-06-25 05:57] LABS: Hematocrit 31.7 % (37-47); Hemoglobin 10.1 g/dL (12.0-15.0); Mean Corp Hgb Conc 31.9 g/dL (32-36); Mean Corpuscular Hgb 29.1 pg (27.0-32.0); Mean Corpuscular Volume 91.4 fL (81-99); Mean Platelet Vol. 10.6 fl (6.2-12.0); Platelet Count 168 K/mm3 (150-450); RBC Distribution Width CV 13.2 % (11.6-14.6); RBC Distribution Width SD 44.2 fl (35.1-43.9); Red Blood Count 3.47 M/mm3 (4.2-5.4); White Blood Count 13.4 K/mm3 (4.4-11.0)
[2020-06-25] MEDS: oxyCODONE 5 MG Tablet PO ×2 (06:03→12:02)
[2020-06-25] MEDS: Acetaminophen 500 MG Tablet 1000 MG PO (06:03)
[2020-06-25 06:12] VITALS: BP 138/73; PULSE 96; RESP 18; TEMP 36.3; O2SAT 97
[2020-06-25 06:28] LABS: Anion Gap 2 (5-15); BUN 25 mg/dL (7-18); BUN/Creat Ratio 23.4 RATIO (10-20); Calcium,Total 8.1 mg/dL (8.5-10.1); Chloride 107 mmol/L (98-107); Creatinine, Serum 1.07 mg/dL (0.55-1.02); EST Glomerular Filtration Rate 54 mL/min (>60); Est Glom Filt Rate - Afr Amer 65 mL/min (>60); Estimated Creatinine Clearance 45.14 ml/min; Glucose 122 mg/dL (74-106); Potassium 4.6 mmol/L (3.5-5.1); Sodium Level 139 mmol/L (136-145)
--- NOTE | 2020-06-25 08:01 | PCM.PN.ORT ---
Subjective: The patient was sitting in bedside chair upon examination. Patient denies any chest pain, shortness of breath, dizziness, lightheadedness, nausea or vomiting, or calf pain. Pain is controlled on medications. No adverse overnight events. Overall patient is doing very well and has little pain. She wishes to go home today. Objective: Vital signs stable and afebrile. Patient is able to plantarflex and dorsiflex actively. Sensation is intact to light touch to saphenous, sural, superficial and deep peroneal, and tibial distribution. Dressing is clean dry and intact. Negative Homans bilaterally, negative signs and symptoms of DVT. - Physical Exam Vitals/I&O's: Vital Signs Temp Pulse Resp BP Pulse Ox 97.4 F L 96 18 138/73 H 97 06/25/20 06:12 06/25/20 06:12 06/25/20 06:12 06/25/20 06:12 06/25/20 06:12 Oxygen Flow Rate (L/min) 6 Oxygen Delivery Method Room Air Weight: 105 kg Body Mass Index (BMI) 37.3 Intake and Output for Last 24 Hours 06/23/20 06/24/20 06/25/20 23:59 23:59 23:59 Intake Total 6383.5 / 6383.5 629.00 / 629.00 Output Total 1300 / 1300 800 / 800 Balance 5083.5 / 5083.5 -171.00 / -171.00 General: Alert, Oriented x3, Cooperative, No apparent distress Microbiology Past 72 Hours 06/23/20 10:40 Interface Orders SARS-CoV-2 Antigen (Rapid) - Final Laboratory Results 06/25/20 05:45: WBC 13.4 H, RBC 3.47 L, Hgb 10.1 L, Hct 31.7 L, MCV 91.4, MCH 29.1, MCHC 31.9 L, RDW Std Deviation 44.2 H, RDW Coeff of Terry 13.2, Plt Count 168, MPV 10.6 06/25/20 05:45: Sodium 139, Potassium 4.6, Chloride 107, Carbon Dioxide 30.0, Anion Gap 2 L, BUN 25 H, Creatinine 1.07 H, Estim Creat Clear Calc 45.14, Est GFR (MDRD) Af Amer 65, Est GFR (MDRD) Non-Af 54 L, BUN/Creatinine Ratio 23.4 H, Glucose 122 H, Calcium 8.1 L Current Medications Acetaminophen (Acetaminophen 500 Mg Tablet) 1,000 mg PO Q8 [facility] Last Admin: 06/25/20 06:03 Dose: 1,000 mg Documented by: Aspirin (Aspirin 81 Mg Tab.Chew) 81 mg PO BIDCM [facility] Last Admin: 06/24/20 15:15 Dose: 81 mg Documented by: Atorvastatin Calcium (Atorvastatin Calcium 20 Mg Tablet) 20 mg PO QHS [facility] Last Admin: 06/24/20 21:42 Dose: 20 mg Documented by: Bupropion HCl (Bupropion (Xl) 300 Mg Tablet.Xl) 300 mg PO DAILY [facility] Last Admin: 06/24/20 17:54 Dose: 300 mg Documented by: Enteral Nutritional Formula (Ensure Surgery 237 Ml Liquid) 237 ml PO TIDCM [facility] Last Admin: 06/24/20 15:16 Dose: Not Given Documented by: Famotidine (Famotidine 20 Mg Tablet) 20 mg PO DAILY [facility] Last Admin: 06/24/20 15:15 Dose: 20 mg Documented by: Gabapentin (Gabapentin 600 Mg Tablet) 600 mg PO QHS [facility] Last Admin: 06/24/20 21:41 Dose: 600 mg Documented by: Sodium Chloride () 250 mls @ 15 mls/hr IV .[id number] PRN PRN Reason: Saline Flush Sodium Chloride () 250 mls @ 15 mls/hr IV .[id number] PRN PRN Reason: Additional IVPB Infusion Indapamide (Indapamide 2.5 Mg Tablet) 1.25 mg PO DAILY [facility] Ketorolac Tromethamine (Ketorolac 15 Mg/Ml Vial) 15 mg IV Q6H PRN PRN PRN Reason: Pain Score 1-5 Stop: 06/26/20 07:27 Last Admin: 06/25/20 02:07 Dose: 15 mg Documented by: Losartan Potassium (Losartan Potassium 50 Mg Tablet) 50 mg PO BID [facility] Last Admin: 06/24/20 17:55 Dose: 50 mg Documented by: Melatonin (Melatonin 10 Mg Tablet) 10 mg PO QHS [facility] Last Admin: 06/24/20 21:41 Dose: 10 mg Documented by: Mirtazapine (Mirtazapine 15 Mg Tablet) 15 mg PO QHS [facility] Last Admin: 06/24/20 21:41 Dose: 15 mg Documented by: Morphine Sulfate (Morphine 2 Mg/Ml Syringe) 2 - 4 mg IV Q2H PRN PRN PRN Reason: Pain Score 4-10 Morphine Sulfate (Morphine 4 Mg/Ml Syringe) 2 - 4 mg IV Q2H PRN PRN PRN Reason: Pain Score 4-10 Ondansetron HCl (Ondansetron 4 Mg/2 Ml Vial) 4 mg IV Q8H PRN PRN PRN Reason: NAUSEA Oxycodone HCl (Oxycodone 5 Mg Tablet) 5 - 10 mg PO Q4H PRN PRN PRN Reason: Pain Score 4-10 Last Admin: 06/25/20 06:03 Dose: 10 mg Documented by: Pramipexole Dihydrochloride (Pramipexole Di-Hcl 0.5 Mg Tablet) 0.5 mg PO QHS [facility] Last Admin: 06/24/20 21:41 Dose: 0.5 mg Documented by: Promethazine HCl (Promethazine 25 Mg/Ml Syringe) 12.5 mg IM Q6H PRN PRN; Protocol PRN Reason: NAUSEA/VOMITING Senna/Docusate Sodium (Senna/Docusate Sodium 1 Tablet) 2 tablet PO BID [facility] Last Admin: 06/24/20 21:41 Dose: 2 tablet Documented by: Sodium Chloride (0.9% Saline Lock 10 Ml Syringe) 10 - 40 ml IV UD PRN PRN Reason: SALINE FLUSH Last Admin: 06/25/20 02:07 Dose: 10 ml Documented by: Medical Necessity - Tobacco Use Smoking Status: Former smoker Tobacco Use: Non-smoker Assessment/Plan All Active Problems Insomnia (Acute) 1. S/P right direct anterior total hip arthroplasty POD #1 2. Continue Pain Medications: Tylenol and oxycodone. Patient has taken tramadol at home and she is aware that she should not be taking the tramadol with the oxycodone. 3. DVT Prophylaxis: Take 81 mg aspirin twice daily for 4 weeks postoperatively for DVT prophylaxis 4. PT/OT: Weightbearing as tolerated 5. H & H: 10./31.7, asymptomatic. Postoperative anemia secondary to acute blood loss from surgery without any intra operative complications. 6. Reactive leukocytosis: Currently 13.4, afebrile. Patient did receive Decadron intraoperatively. 7. Continue postoperative medical management per medicine: Patient does have underlying elevated creatinine levels and BUN levels which have been stable. I did discontinue the use of the meloxicam and instructed that she needs to follow-up with her primary care physician with regards to underlying elevated kidney labs. She did voice understanding. 8. Encouraged Incentive Spirometry 9. Disposition: Orthopedically stable, plan will be for discharge home today. Prescriptions will be E scribed to [facility]. Patient has outpatient physical therapy established. She will follow-up per postop instructions. I have reviewed the [place] Automated Rx Reporting System (OARRS) report for this patient for refill pattern and other prescriber involvement as part of the appropriate surveillance for the provision of acute and chronic controlled medications. The report was requested and reviewed on the date of this entry and was considered in the prescribing process.
--- NOTE | 2020-06-25 08:08 | DCINST_ITS ---
Discharge Diet: No Restrictions Discharge Activity: May Not Drive - while taking narcotic pain medications. May shower in (days): 1 - Okay to shower if dressing is intact to skin. Turn dressing away from water. Do not submerge underwater for 6 weeks postoperatively. Ice area for (Minutes): 20 - Every 1-2 hours while awake Weight Bearing Status: Weight bearing as tolerated Elevate: Operative Extremity Additional Activity Instructions:: Wear elastic stockings for 2 weeks. DO NOT use alcohol with narcotic pain medication. DO NOT make important decisions while taking narcotic medication. If you have problems with taking your medication (rash, itching, nausea, etc.) call the office at once. Call your doctor if your incision/area has: Increased Pain/ Swelling, Increased Redness, Foul Smelling Discharge Call your doctor if you observe: Fever of 101 or Higher Remove Dressing in (days):: 4 - Okay to remove dressing on June 29, 2020 Additional Instructions: Follow [facility] Post-op Instructions. Once postoperative dressing has been removed only use gentle soap and water over the incision. Do not use any ointments, Neosporin, salves, alcohol pads over the incision for 6 weeks postoperatively. Do not submerge underwater for 6 weeks postoperatively. Allergies/Adverse Reactions: Allergies Penicillins Allergy (Verified 06/24/20 07:22) Anaphylaxis Medications to take at Discharge Losartan Potassium [Cozaar] 50 mg PO BID 09/19/14 Melatonin 10 mg PO QHS 09/19/14 Indapamide 1.25 mg PO DAILY 04/12/17 Pramipexole Di-HCl [Mirapex] 0.5 mg PO QHS 04/12/17 Atorvastatin Calcium [Lipitor] 20 mg PO QHS 06/11/20 Bupropion HCl [Bupropion Xl] 300 mg PO DAILY 06/11/20 Gabapentin 600 mg PO QHS 06/11/20 Mirtazapine [Remeron] 15 mg PO QHS 06/24/20 Acetaminophen [Tylenol] 1,000 mg PO Q8 tablet 06/25/20 Aspirin [Aspirin, Baby] 81 mg PO BIDCM #60 tab 06/25/20 Famotidine [Pepcid] 20 mg PO DAILY #30 tab 06/25/20 Oxycodone [Oxyir] 5 - 10 mg PO Q4H PRN PRN 4 Days #48 tablet 06/25/20 Senna/Docusate Sodium [Senokot-S] 2 tab PO BID #14 tab 06/25/20 The following prescriptions were given: Aspirin [Aspirin, Baby] 81 mg PO BIDCM #60 tab Transmission Status: Pending to [facility] Oxycodone [Oxyir] 5 - 10 mg PO Q4H PRN PRN 4 Days #48 tablet PRN Reason: Pain Score 4-10 Transmission Status: Sent to [facility] Famotidine [Pepcid] 20 mg PO DAILY #30 tab Transmission Status: Pending to [facility] Senna/Docusate Sodium [Senokot-S] 2 tab PO BID #14 tab Transmission Status: Pending to [facility] Primary Care Physician: Kamar Grimes MD [Primary Care Provider] - Test Results: Test results from this visit will be discussed in further detail at your follow- up appointment, if applicable. Please Follow Up With: Physical Therapy When: 06/29/20 @ 2:00 pm @ [facility] Please Follow Up With: 07/08/20 @ 2:30 pm
[2020-06-25] MEDS: Aspirin 81 MG TAB.CHEW PO (08:14)
[2020-06-25] MEDS: Ensure Surgery 237 ML LIQUID PO (08:14)
[2020-06-25 08:22] VITALS: BP 146/81; PULSE 101; RESP 18; TEMP 36.6; O2SAT 98
[2020-06-25] MEDS: Indapamide 2.5 MG Tablet 1.25 MG PO (08:24)
[2020-06-25] MEDS: buPROPion (XL) 300 MG TABLET.XL PO (08:24)
[2020-06-25] MEDS: Losartan Potassium 50 MG Tablet PO (08:24)
[2020-06-25] MEDS: Famotidine 20 MG Tablet PO (08:24)
--- NOTE | 2020-06-25 10:30 | CASEMGMT ---
RN EFRAÍN LIVESTOCK SPECULATOR CM to room to meet with patient for initial transition planning/care coordination assessment. JC KENNY introduced self and role at [facility]. Pt voices understanding and consents to assessment at this time. Pt resting in bed in no distress at this time. Pt is A/O at this time and answers all questions appropriately. Care providers, pharmacy, and demographics verified/updated at this time. PCP: Dr Kamar Grimes Specialists: Dr Cavanaugh--ortho Preferred Pharmacy: [facility] Retail Insurance: [employer] Prescription Benefit: Yes Living Will/HPOA: has LW and POA, who is her granddaughter, Pattie LNOK: Granddaughter, Pattie/FADUMO. Diya Jeffers Living Arrangements: Lives alone in one-story home. Independent prior to surgery. Granddaughters live close, are supportive, and able to help. They can get groceries/meds/supplies for pt. Transportation: Pt drove prior to hospitalization. One of her granddaughters will take her home @ d/c DME: States has the following DME. shower chair, cane, grab bars, walker. Lives in [facility]--has call cord in bathroom and bedroom she can use for emergencies. Pt states no need for further DME at this time. HHC/SNF: No history of either. No needs identified. Pt wishes to return home w/OP therapy @ [facility] and states has no concerns with going home at time of discharge. CM to follow for any discharge planning/needs. Pt voices no concerns/needs at this time. Advised pt to ask for CM if any questions/concerns/needs arise. Voices understanding. PLAN: Home w/OP therapy @ [facility] Kinga DAMICO RN, CM
== END 2020-06-25 13:20 | disposition home or self-care (01) ==
LOC: MS3 06-25 07:11
PROVIDERS: Admitting Provider Specialist; PCP Family Medicine; Referring Provider Specialist; Visit Provider Specialist
PROC: (CPT 27284; principal; 2020-06-24 08:35)
DX: M16.11 Unilateral primary osteoarthritis, right hip (principal); Z20.828 Contact with and (suspected) exposure to other viral communicable diseases; K21.9 Gastro-esophageal reflux disease without esophagitis; G25.81 Restless legs syndrome; I10 Essential (primary) hypertension; F32.9 Major depressive disorder, single episode, unspecified; F41.9 Anxiety disorder, unspecified; E78.5 Hyperlipidemia, unspecified; Z79.82 Long term (current) use of aspirin; Z87.891 Personal history of nicotine dependence; Z86.12 Personal history of poliomyelitis; Z79.899 Other long term (current) drug therapy; Z68.37 Body mass index [BMI] 37.0-37.9, adult; E66.9 Obesity, unspecified
CPT/HCPCS: 01214; 27130; 73502; 76000; 80048; 82962; 85027; 87077; 87081; 87426; 93005; 96361; 96365; 96366; 96367; 96375; 97110; 97162; 97166; 97530; 99218; 99251; C1776; C9803; J7040; J7120; A4216; G0378; G0379; G0463; J2405

== ENCOUNTER → 2020-09-08 10:48 | Outpatient (CLI) | payer MEDICARE, SELFPAY ==
[2020-06-24 13:31] VITALS: BMI 37.3
[2020-09-08 12:32] LABS: Microalbumin:Creatinine Ratio 34.2 mg/g CRE (<30 mg/g CRE)
[2020-09-08 12:36] LABS: Anion Gap 6 (5-15); BUN 23 mg/dL (7-18); BUN/Creat Ratio 20.9 RATIO (10-20); Calcium,Total 9.6 mg/dL (8.5-10.1); Chloride 103 mmol/L (98-107); EST Glomerular Filtration Rate 52 mL/min (>60); Est Glom Filt Rate - Afr Amer 63 mL/min (>60); Glucose 113 mg/dL (74-106); Potassium 4.5 mmol/L (3.5-5.1); Sodium Level 140 mmol/L (136-145)
[2020-09-08 13:12] LABS: Hepatitis C Antibody Non-Reactive (Nonreactive)
== END ==
PROVIDERS: PCP Family Medicine; Referring Provider Family Medicine; Visit Provider Family Medicine
DX: I10 Essential (primary) hypertension (principal); Z11.59 Encounter for screening for other viral diseases
CPT/HCPCS: 36415; 80048; 82043; 82570; 86803

== ENCOUNTER → 2020-10-14 16:44 | Outpatient (CLI) | payer MEDICARE, SELFPAY ==
[2020-06-24 13:31] VITALS: BMI 37.3
[2020-10-14 18:14] LABS: Anion Gap 4 (5-15); BUN 25 mg/dL (7-18); BUN/Creat Ratio 18.4 RATIO (10-20); Calcium,Total 9.3 mg/dL (8.5-10.1); Chloride 105 mmol/L (98-107); Creatinine, Serum 1.36 mg/dL (0.55-1.02); EST Glomerular Filtration Rate 41 mL/min (>60); Est Glom Filt Rate - Afr Amer 49 mL/min (>60); Glucose 101 mg/dL (74-106); Potassium 4.5 mmol/L (3.5-5.1); Sodium Level 138 mmol/L (136-145)
== END ==
PROVIDERS: PCP Family Medicine; Referring Provider Family Medicine; Visit Provider Family Medicine
DX: I12.9 Hypertensive chronic kidney disease with stage 1 through stage 4 chronic kidney disease, or unspecified chronic kidney disease (principal); N18.9 Chronic kidney disease, unspecified
CPT/HCPCS: 36415; 80048

== ENCOUNTER 2021-07-15 11:03 | Outpatient (CLI) | payer MEDICARE, MEDICAID, SELFPAY ==
--- NOTE | 2021-07-15 11:10 | RAD_ITS ---
STUDY: X-RAY CHEST REASON FOR EXAM: Female, 71 years old. ATYPICAL PNEUMONIA TECHNIQUE: PA and lateral views of the chest. COMPARISON: None. FINDINGS: Patchy alveolar opacities in both lungs consistent with bilateral pneumonia. There is no demonstrated pleural abnormality. Normal size heart. Normal mediastinum and steven. Normal visualized pulmonary arteries. Normal visualized aortic arch and descending thoracic aorta. There is a dextroscoliosis of the thoracic spine. Status post bilateral shoulder arthroplasty. There is no demonstrated abnormality of the visualized soft tissue structures of the upper abdomen. RAD/Chest PA and Lateral IMPRESSION: Bilateral patchy pneumonia. Electronically Signed: Ronan Montano MD at 16:49 EST Tel , Service support ,
[2021-07-15 15:22] LABS: Absolute Lymphocyte Count 0.82 X10^3/uL (0.83-4.51); Absolute Neutrophil Count 6.1 X10^3/uL (2.0-7.7); Basophil# 0.01 X10^3/uL; Basophil% 0.1 % (0-1); Eosinophil# 0.04 X10^3/uL; Eosinophils% 0.5 % (0-5); Hematocrit 38.1 % (37-47); Hemoglobin 13.1 g/dL (12.0-15.0); Lymphocyte # 0.82 X10^3/ul (0.83-4.51); Lymphocyte % 10.3 % (19-41); Mean Corp Hgb Conc 34.4 g/dL (32-36); Mean Corpuscular Hgb 29.2 pg (27.0-32.0); Mean Platelet Vol. 10.7 fl (6.2-12.0); Monocyte# 0.93 X10^3/uL; Monocyte% 11.7 % (0-10); NRBC Flagged by Analyzer 0 % (0-5); Neutrophil # 6.08 X10^3/uL (2.7-7.7); Neutrophil % 76.6 % (47-70); Platelet Count 228 K/mm3 (150-450); RBC Distribution Width CV 13.3 % (11.6-14.6); RBC Distribution Width SD 40.3 fl (35.1-43.9); Red Blood Count 4.48 M/mm3 (4.2-5.4); White Blood Count 7.9 K/mm3 (4.4-11.0)
[2021-07-15 15:58] LABS: ALB/GLOB Ratio 0.6 RATIO (0.9-2.4); AST(SGOT) 39 U/L (15-37); Alanine Aminotransfer ALT/SGPT 39 U/L (13-56); Albumin, Serum 2.8 g/dL (3.2-5.0); Alkaline Phosphatase 108 U/L (45-117); Anion Gap 10 (5-15); BUN 11 mg/dL (7-18); BUN/Creat Ratio 13.3 RATIO (10-20); Calcium,Total 8.8 mg/dL (8.5-10.1); Chloride 91 mmol/L (98-107); Creatinine, Serum 0.82 mg/dL (0.55-1.02); EST Glomerular Filtration Rate 72 mL/min (>60); Est Glom Filt Rate - Afr Amer 87 mL/min (>60); Globulin 4.8 g/dL (2.2-4.2); Glucose 102 mg/dL (74-106); Potassium 3.4 mmol/L (3.5-5.1); Protein, Total 7.6 g/dL (6.4-8.2); Sodium Level 132 mmol/L (136-145)
== END 2021-07-15 23:59 | disposition short-term general hospital (02) ==
PROVIDERS: PCP Family Medicine; Referring Provider Family Medicine; Visit Provider Family Medicine
DX: J18.9 Pneumonia, unspecified organism (principal); I12.9 Hypertensive chronic kidney disease with stage 1 through stage 4 chronic kidney disease, or unspecified chronic kidney disease; F32.9 Major depressive disorder, single episode, unspecified; N18.1 Chronic kidney disease, stage 1
CPT/HCPCS: 36415; 71046; 80053; 85025

== ENCOUNTER 2021-11-25 13:30 | Outpatient (RCR) | payer MEDICARE, MEDICAID, SELFPAY ==
--- NOTE | 2021-10-27 14:18 | HP.PTEVAL ---
Patient's Visit Information OSCAR ROMAN is a 71 year old F referred to Physical Therapy by Dr. Kamar Grimes MD with a diagnosis of Post Polio syndrome. Date of Evaluation: 10/27/21 Physical Therapist: Mihai Law, PT, ATC - Visit Plan Frequency: 2-3x /Week Duration: 4-6 Weeks Plan: Aquatic therapy consisting of B LE stretching, B LE strengthening, and core stab ex's. - Subjective Pt reports she has been debilitating since the of her only child 3 years ago due to brain cancer. Pt reports she really hasnt exercvised and she has put on a lot of weight since that date. Pt also feels like her balance is becoming poor. Pt reports she fell just the other day and skinned her knees. Pt reports she falls because her legs give out. Pt also notes she trips easily. Pt does report some of that is also due to the fact that she has post polio syndrome. Pt notes she was diagnosed with polio when she was 3 years old. Pt reports she has good sensation is her feet, and denies any tingling or numbness at this time. Pt reports she lives alone in a senior citizen apartment complex. Pt reports she is excited to try aquatic therapy at this time. Overall body pain is rated at 0/10 currently, but patient notes she gets 3/10 pain with activity. - Pain Overall body Pain Intensity (Out of 10): 0 Pain Intensity Range: 3 - Objective Neuro: B LE sensation is WNL to light touch. B patellar reflex= 1/3. ROM: B LE's are WFL when compared bilaterally. MMT: R knee flex and ext= 3+/5. R hip flex, abd, add= 4-/5. L LE is grossly 4/5 throughout. Gait: Pt was able to ambulate approximately 140' with WW until being SOB and needing a rest. DLS: Pt able to DLS for 30 sec with EO demonstrating moderate balance disturbances forward and backwards, and side to side. Pt displayed significant balance disturbances with EC in all planes and was only able to maintain balancce for 20 seconds until needing UE assist. - Balance/Special Test Scores Lower Extremity Functional Score: 18 - Goals Goal 1:: Increase B LE strength x 1 grade to aid with increased tolerance for ambulation Goal Time Frame: 4-6 Weeks Goal 2:: Pt will be able to ambulate greater than 340 feet to aid with community ambulation Goal Time Frame: 4-6 Weeks Goal 3:: I with HEP Goal Time Frame: 4-6 Weeks - Rehabilitation Potential Physical Therapy Diagnosis: B LE weakness and intolerance for ambulation secondary to debilitation from post polio syndrome Rehabilitation Potential: Good - Anticipated Interventions Patient/Client Instruction: Educate patient on: Condition, Plan of Care For the Purpose of:: To improve self management Therapeutic Exercise to Include: Strength training, Endurance training, Balance training, Flexibilty training, In an aquatic setting, Dynamic Lumbar Stabilization For the Purpose of:: To decrease pain, To improve muscle performance and motor function Thank you for the opportunity to evaluate your patient. For Medicare and Medicare HMO plans, please review the plan of care and approve it. It will need to be FAXED BACK to us at [phone] for Medicare purposes. For Medicare only, by signing this I certify the plan of care. Please let me know if there are questions or concerns regarding this plan of care. Physician Signature: Date:
--- NOTE | 2021-12-29 08:22 | HP.PT.NRP ---
OSCAR ROMAN was seen in my office for initial evaluation on 10/27/21. The following Plan of Care was established for this patient: Initial Frequency: 2-3x /Week Initial Duration: 4-6 Weeks Patient/Client Instruction: Educate patient on: Condition, Plan of Care For the Purpose of:: To improve self management Therapeutic Exercise to Include: Strength training, Endurance training, Balance training, Flexibilty training, In an aquatic setting, Dynamic Lumbar Stabilization For the Purpose of:: To decrease pain, To improve muscle performance and motor function This patient was last seen in our office . Pertinent comments regarding their Physical therapy will appear below: Pt was treated for 10 PT visits for post polio syndrome through the date of 11/25/21. Pt has not returned through todays date, and is discontinued at this time. At this point I will be discontinuing this patient from physical therapy. I would be happy to see this patient again in the future if found appropriate by the physician. Thank you! Mihai Law, PT, ATC Balance/Gait/Functional tests - Balance/Special Test Scores Lower Extremity Functional Score: 18
== END 2021-11-25 19:00 | disposition home or self-care (01) ==
LOC: PT 13:30
PROVIDERS: PCP Family Medicine; Referring Provider Family Medicine; Visit Provider Family Medicine
DX: G14 Postpolio syndrome (principal); R53.81 Other malaise
CPT/HCPCS: 97110; 97113; 97161

== ENCOUNTER → 2022-04-19 | Outpatient (CLI) | payer MEDICARE, MEDICAID, SELFPAY ==
[2022-04-19 18:05] LABS: Vitamin B12 405 pg/mL (211-911)
[2022-04-19 18:45] LABS: Microalbumin,Random Urine 58.4 mg/L (NO RANGE EST.); Microalbumin:Creatinine Ratio 94.8 mg/g CRE (<30 mg/g CRE)
[2022-04-19 19:12] LABS: ALB/GLOB Ratio 1.1 RATIO (0.9-2.4); AST(SGOT) 26 U/L (15-37); Alanine Aminotransfer ALT/SGPT 35 U/L (13-56); Albumin, Serum 3.9 g/dL (3.2-5.0); Alkaline Phosphatase 107 U/L (45-117); Anion Gap 6 (5-15); BUN 16 mg/dL (7-18); BUN/Creat Ratio 16.6 RATIO (10-20); Calcium,Total 9.7 mg/dL (8.5-10.1); Chloride 100 mmol/L (98-107); Cholesterol 286 mg/dL (200); Creatinine, Serum 0.96 mg/dL (0.55-1.02); EST Glomerular Filtration Rate 60 mL/min (>60); Est Glom Filt Rate - Afr Amer 73 mL/min (>60); Globulin 3.6 g/dL (2.2-4.2); Glucose 101 mg/dL (74-106); High Density Lipoprotein 59 mg/dL; Potassium 3.5 mmol/L (3.5-5.1); Protein, Total 7.5 g/dL (6.4-8.2); Sodium Level 137 mmol/L (136-145); Triglycerides 202 mg/dL; Very Low Density Lipoprotein 40 mg/dL (5-40)
[2022-04-21 15:08] LABS: PROEL- A/G Ratio 1.2 (0.7-1.7); PROEL- Alpha-1 Globulin 0.3 g/dL (0.0-0.4); PROEL- Alpha-2 Globulin 0.8 g/dL (0.4-1.0); PROEL- Beta Globulin 1.2 g/dL (0.7-1.3); PROEL- Globulin, Total 3.3 g/dL (2.2-3.9); PROEL- TOTAL PROTEIN 7.3 g/dL (6.0-8.5)
[2022-04-21 16:59] LABS: ANTINUCLEAR ANTIBODIES DIRECT Negative (Negative)
== END | disposition home or self-care (01) ==
LOC: MFPLAB 15:35
PROVIDERS: PCP Family Medicine; Referring Provider Family Medicine; Visit Provider Family Medicine
DX: I12.9 Hypertensive chronic kidney disease with stage 1 through stage 4 chronic kidney disease, or unspecified chronic kidney disease (principal); N18.9 Chronic kidney disease, unspecified; R20.2 Paresthesia of skin; R19.7 Diarrhea, unspecified
CPT/HCPCS: 36415; 80053; 80061; 82043; 82570; 82607; 82746; 84165; 86038

== ENCOUNTER → 2022-04-20 | Outpatient (CLI) | payer MEDICARE, MEDICAID, SELFPAY ==
[2022-04-26 18:04] LABS: Pancreatic Elastase, Fecal > 500 (>200)
== END | disposition home or self-care (01) ==
LOC: LABSPEC 10:31
PROVIDERS: PCP Family Medicine; Referring Provider Family Medicine; Visit Provider Family Medicine
DX: I12.9 Hypertensive chronic kidney disease with stage 1 through stage 4 chronic kidney disease, or unspecified chronic kidney disease (principal); R20.2 Paresthesia of skin; R19.7 Diarrhea, unspecified; N18.9 Chronic kidney disease, unspecified
CPT/HCPCS: 82653

== ENCOUNTER → 2022-05-05 | Outpatient (CLI) | payer MEDICARE, MEDICAID, SELFPAY ==
--- NOTE | 2022-05-05 15:51 | BI_ITS ---
MAMMOGRAPHY - BILATERAL SCREENING REASON FOR EXAM: Female, 72 years old. Routine annual screening examination. PERTINENT HISTORY: Aunts with breast cancer. TECHNIQUE: Digital bilateral breast reg (3D mammographic acquisition) in the CC and MLO projections. 2-D mediolateral oblique (MLO) and craniocaudad (CC) views of both breasts were obtained. CAD: Full Field Digital Mammography with Computer Added Detection was performed. COMPARISON: Comparison is made with prior study dated 11/27/2018 and 12/02/2015. FINDINGS: Breast Composition: The breasts are almost entirely fatty. There are no dominant masses or suspicious calcifications. Stable small benign-appearing bilateral axillary nodes. No other significant abnormalities are identified. There has been no significant change since the prior study. BI/SCRN MAMM (CAD)W/REG BILAT IMPRESSION: Stable bilateral screening mammogram. Yearly follow-up mammogram recommended. (A) ASSESSMENT CATEGORY: BIRADS Category 2: Benign. A letter regarding these results will be sent to the patient by the facility within 30 days. Approximately 10% of breast cancers are not detected by mammography. A normal mammogram should not delay biopsy of a clinically suspicious abnormality. [id number] Electronically Signed: Jermaine Herrera MD at 8:47 EDT ,
--- NOTE | 2022-05-05 15:56 | BD_ITS ---
STUDY: DUAL ENERGY X-RAY ABSORPTIOMETRY / DXA REASON FOR EXAM: Female, 72 years old. m85.89 TECHNIQUE: Bone Mineral Density (BMD) measurements of both forearms were obtained. COMPARISON: Comparison is made with prior study dated 12/08/2015. FINDINGS: Lumbar Spine (L1-L4): g/cm2 ( ) / T-score ( ) / Z-score ( ) Findings are suggestive of with a fracture risk. Right Forearm: g/cm2 (0.533) / T-score (-0.9) / Z-score (1.4) Left Forearm: g/cm2 (0.516) / T-score (-1.2) / Z-score (1.1) BD/Dexa Bone Density/Append Skel IMPRESSION: The patient is considered osteopenic as outlined below according to World Albert Organization (WHO) criteria with a low fracture risk. Reference Information: The T-score is the number of standard deviations above or below the standard which is normal for young adults at their peak bone mineral density. The World Health Organization (WHO) interprets the T-scores as follows: Above -1 Normal bone density Between -1 and -2.5 Osteopenia Equal to / or below -2.5 Osteoporosis As a practical clinical guideline, osteopenia may be graded as follows: Mild -1 through -1.5 Moderate -1.6 through -2.0 Severe -2.1 through -2.4 The Z-score is the number of standard deviations above or below age-matched controls. A Z-score of less than -1.5 would be considered abnormal. References: 1. NIH Osteoporosis and Related Bone Diseases www osteo.org 2. International Society for Clinical Densitometry www iscd.org 3. National Osteoporosis Foundation www nof.org Electronically Signed: Jermaine Herrera MD at 15:17 EDT ,
== END | disposition home or self-care (01) ==
LOC: OPBD 15:47
PROVIDERS: PCP Family Medicine; Visit Provider Family Medicine
DX: Z12.31 Encounter for screening mammogram for malignant neoplasm of breast (principal); M81.0 Age-related osteoporosis without current pathological fracture; Z80.3 Family history of malignant neoplasm of breast
CPT/HCPCS: 77063; 77067; 77081

== ENCOUNTER → 2022-10-18 | Outpatient (CLI) | payer MEDICARE, MEDICAID, SELFPAY ==
[2022-10-18 12:46] LABS: Absolute Lymphocyte Count 1.84 X10^3/uL (0.83-4.51); Absolute Neutrophil Count 4.3 X10^3/uL (2.0-7.7); Basophil# 0.06 X10^3/uL; Basophil% 0.9 % (0-1); Eosinophil# 0.22 X10^3/uL; Eosinophils% 3.2 % (0-5); Hematocrit 45.3 % (37-47); Hemoglobin 14.1 g/dL (12.0-15.0); Lymphocyte # 1.84 X10^3/ul (0.83-4.51); Lymphocyte % 26.6 % (19-41); Mean Corp Hgb Conc 31.1 g/dL (32-36); Mean Corpuscular Hgb 28.8 pg (27.0-32.0); Mean Corpuscular Volume 92.6 fL (81-99); Mean Platelet Vol. 10.9 fl (6.2-12.0); Monocyte# 0.51 X10^3/uL; Monocyte% 7.4 % (0-10); NRBC Flagged by Analyzer 0 % (0-5); Neutrophil # 4.26 X10^3/uL (2.7-7.7); Neutrophil % 61.3 % (47-70); Platelet Count 196 K/mm3 (150-450); RBC Distribution Width CV 13.4 % (11.6-14.6); Red Blood Count 4.89 M/mm3 (4.2-5.4); White Blood Count 6.9 K/mm3 (4.4-11.0)
[2022-10-18 13:07] LABS: Hemoglobin A1c 5.6 % (3.8-5.6)
[2022-10-18 13:17] LABS: Vitamin D,25 Hydroxy 27.3 ng/mL
[2022-10-18 13:52] LABS: AST(SGOT) 25 U/L (15-37); Alanine Aminotransfer ALT/SGPT 34 U/L (13-56); Albumin, Serum 3.5 g/dL (3.2-5.0); Alkaline Phosphatase 113 U/L (45-117); Anion Gap 4 (5-15); BUN 22 mg/dL (7-18); BUN/Creat Ratio 24.5 RATIO (10-20); Calcium,Total 9.2 mg/dL (8.5-10.1); Chloride 106 mmol/L (98-107); Cholesterol 315 mg/dL (200); EST Glomerular Filtration Rate 65 mL/min (>60); Est Glom Filt Rate - Afr Amer 79 mL/min (>60); Ferritin 65 ng/mL (8-252); Globulin 3.6 g/dL (2.2-4.2); Glucose 94 mg/dL (74-106); High Density Lipoprotein 56 mg/dL; Potassium 4.5 mmol/L (3.5-5.1); Protein, Total 7.1 g/dL (6.4-8.2); Sodium Level 137 mmol/L (136-145); Triglycerides 246 mg/dL; Very Low Density Lipoprotein 49 mg/dL (5-40)
== END | disposition home or self-care (01) ==
LOC: MFPLAB 10:59
PROVIDERS: PCP Family Medicine; Referring Provider Family Medicine; Visit Provider Family Medicine
DX: N18.2 Chronic kidney disease, stage 2 (mild) (principal); G25.81 Restless legs syndrome; I12.9 Hypertensive chronic kidney disease with stage 1 through stage 4 chronic kidney disease, or unspecified chronic kidney disease
CPT/HCPCS: 36415; 80053; 80061; 82043; 82306; 82570; 82728; 83036; 85025

== ENCOUNTER → 2022-12-06 | Outpatient (CLI) | payer MEDICARE, MEDICAID, SELFPAY ==
[2022-12-06 15:22] LABS: Microalbumin,Random Urine 60.1 mg/L (NO RANGE EST.); Microalbumin:Creatinine Ratio 63.1 mg/g CRE (<30 mg/g CRE)
[2022-12-06 15:36] LABS: Cholesterol 171 mg/dL (200); High Density Lipoprotein 53 mg/dL; Triglycerides 132 mg/dL; Very Low Density Lipoprotein 26 mg/dL (5-40)
== END | disposition home or self-care (01) ==
LOC: MFPLAB 12:05
PROVIDERS: PCP Family Medicine; Visit Provider Family Medicine
DX: E78.5 Hyperlipidemia, unspecified (principal)
CPT/HCPCS: 36415; 80061; 82043; 82570

== ENCOUNTER → 2023-10-19 | Outpatient (CLI) | payer MEDICARE, MEDICAID, SELFPAY ==
[2023-10-19 15:23] LABS: Absolute Lymphocyte Count 1.54 X10^3/uL (0.83-4.51); Absolute Neutrophil Count 3.9 X10^3/uL (2.0-7.7); Basophil# 0.04 X10^3/uL; Basophil% 0.6 % (0-1); Eosinophil# 0.17 X10^3/uL; Eosinophils% 2.8 % (0-5); Hemoglobin 14.4 g/dL (12.0-15.0); Lymphocyte # 1.54 X10^3/ul (0.83-4.51); Mean Corp Hgb Conc 31.3 g/dL (32-36); Mean Corpuscular Hgb 29.7 pg (27.0-32.0); Mean Corpuscular Volume 94.8 fL (81-99); Mean Platelet Vol. 11.8 fl (6.2-12.0); Monocyte% 8.1 % (0-10); NRBC Flagged by Analyzer 0 % (0-5); Neutrophil # 3.89 X10^3/uL (2.7-7.7); Platelet Count 192 K/mm3 (150-450); RBC Distribution Width CV 13.9 % (11.6-14.6); Red Blood Count 4.85 M/mm3 (4.2-5.4); White Blood Count 6.2 K/mm3 (4.4-11.0)
[2023-10-19 16:21] LABS: AST(SGOT) 25 U/L (15-37); Alanine Aminotransfer ALT/SGPT 28 U/L (13-56); Albumin, Serum 3.7 g/dL (3.2-5.0); Alkaline Phosphatase 121 U/L (45-117); Anion Gap 4 (5-15); BUN 32 mg/dL (7-18); BUN/Creat Ratio 28.6 RATIO (10-20); Calcium,Total 9.8 mg/dL (8.5-10.1); Chloride 103 mmol/L (98-107); Creatinine, Serum 1.12 mg/dL (0.55-1.02); EST Glomerular Filtration Rate 50 mL/min (>60); Est Glom Filt Rate - Afr Amer 61 mL/min (>60); Ferritin 72 ng/mL (8-252); Globulin 3.8 g/dL (2.2-4.2); Glucose 105 mg/dL (74-106); Potassium 4.8 mmol/L (3.5-5.1); Protein, Total 7.5 g/dL (6.4-8.2); Sodium Level 139 mmol/L (136-145); Thyroid Stim Hormone (TSH) 1.61 uIU/mL (0.358-3.74)
[2023-10-19 16:33] LABS: Microalbumin:Creatinine Ratio 180.8 mg/g CRE (<30 mg/g CRE)
== END | disposition home or self-care (01) ==
LOC: MFPLAB 11:51
PROVIDERS: PCP Family Medicine; Visit Provider Family Medicine
DX: D64.9 Anemia, unspecified (principal); G25.81 Restless legs syndrome; I10 Essential (primary) hypertension
CPT/HCPCS: 36415; 80053; 82043; 82570; 82728; 83735; 84443; 85025

== ENCOUNTER → 2024-04-29 | Outpatient (CLI) | payer MEDICARE, MEDICAID, SELFPAY ==
[2024-04-29 18:28] LABS: ALB/GLOB Ratio 1.1 RATIO (0.9-2.4); AST(SGOT) 22 U/L (15-37); Alanine Aminotransfer ALT/SGPT 26 U/L (13-56); Albumin, Serum 3.7 g/dL (3.2-5.0); Alkaline Phosphatase 95 U/L (45-117); Anion Gap 5 (5-15); BUN 23 mg/dL (7-18); BUN/Creat Ratio 21.7 RATIO (10-20); Calcium,Total 9.4 mg/dL (8.5-10.1); Chloride 100 mmol/L (98-107); Creatinine, Serum 1.06 mg/dL (0.55-1.02); EST Glomerular Filtration Rate 54 mL/min (>60); Est Glom Filt Rate - Afr Amer 65 mL/min (>60); Globulin 3.3 g/dL (2.2-4.2); Glucose 95 mg/dL (74-106); Potassium 4.3 mmol/L (3.5-5.1); Sodium Level 137 mmol/L (136-145)
[2024-04-29 18:39] LABS: Vitamin D,25 Hydroxy 12.2 ng/mL
--- OUTSIDE RECORDS SUMMARY | 2024-04-29 18:50 | XMS RPT_ITS | CCD ---
Author Organization [facility] Care Team Providers Care Network Intelligence Analyst Name Role Phone Kamar Grimes Primary Care Provider Jh Ferraro (Hist) Primary Care Provider Allergies Allergy Classification Reported Allergen(s) Allergy Type Date of Onset Reaction(s) Facility (1 source) Penicillins Propensity to adverse reactions 6 Shortness of Breath [facility] Problems Active Problems Problem Classification Problem Date Documented Da te Episodic/Chronic Essential hypertension (1 source) Essential hypertension; Translations: [Unspecified essential hypertension] Onset: 03-09-2006 03-09-2006 Chronic Hemorrhoids (1 source) Internal hemorrhoids; Translations: [Internal hemorrhoids without mention of complication] 06-12-2006 Episodic Other gastrointestinal disorders (1 source) Diarrhea; Translations: [Diarrhea] 06-12-2006 Episodic Other hereditary and degenerative nervous system conditions (1 source) Restless legs; Translations: [RLS (restless legs syndrome)] Onset: 01-14-2016 01-14-2016 Chronic Unclassified (1 source) Patient encounter status; Translations: [Special screening for malignant neoplasms, colon] Onset: 03-29-2006 03-29-2006 Past or Other Problems Problem Classification Problem Date Documented Da te Episodic/Chronic Residual codes; unclassified (1 source) Insomnia; Translations: [Insomnia] Onset: 01-14-2016 01-14-2016 Episodic Results Test Name Value Interpretation Reference Range Robbin hernandezhiral Dia 12-22-2006 CONVERTED ELECTRONIC SIGNATURE FERNANDO MARLEY M.D., PATHOLOGIST (Electronic signature on file) Final Signed Out: 12/22/2006 17:10 [facility] CONVERTED FINAL DIAGNOSIS RIGHT HUMERAL HEAD, EXCISION - DEGENERATIVE ARTHRITIS. [facility] CONVERTED ORDERING PROVIDER Ordering Provider: SIXTO NELSON [facility] Encounters Encounter Date Encounter Type Care Provider Facility Start: 12-18-2006 End: 12-18-2006 Patient encounter procedure Sixto Nelson Work Phone: [facility] Start: 12-18-2006 Results Only Sixto jordan Work Phone: [facility] Procedures Date Procedure Procedure Detail Performing Clinician Start: 01-27-2016 Colonoscopy Sixto izquierdo Start: 12-18-2006 CONVERTED SURGICAL PATHOLOGY Sixto Nelson Work Phone: Start: 04-11-2006 Mammography Sixto izquierdo Plan of Treatment Date Care Activity Detail Author Start: 01-26-2026 Colonoscopy COLONOSCOPY [facility] Start: 03-03-2020 Influenza vaccination INFLUENZA (#1) [facility] Start: 2014 ADVANCE DIRECTIVE DISCUSSION ADVANCE DIRECTIVE DISCUSSION [facility] Start: 2014 BONE DENSITY BONE DENSITY [facility] Start: 2014 PNEUMOVAX AGE 65 AND OVER WITH 5YR LOOKBACK (#1) PNEUMOVAX AGE 65 AND OVER WITH 5YR LOOKBACK (#1) [facility] Start: 09-17-2009 LIPID SCREEN LIPID SCREEN [facility] Start: 08-25-2009 DIABETES SCREEN DIABETES SCREEN [facility] Start: 04-11-2007 Mammography MAMMOGRAM [facility] Start: 1999 SHINGRIX VACCINE (1 of 2) PANCHAL GRIX VACCINE (1 of 2) [facility] Start: 01-10-1968 Urine microalbumin profile DTAP,TDAP ,TD (1 - Tdap) [facility] Start: 1967 ANNUAL PCP TEAM ERP IMPLEMENTATION CONSULTANT TIAGO DISEASE VISIT ANNUAL PCP TEAM CHRONIC DISEASE VISIT [facility] Start: 1967 BP CONTROLLED (<130/80) BP CONTROLLE D (<130/80) [facility] Start: 1967 HEPATITIS C SCREENING HEPATITIS C SC OLU [facility] Social History Date Type Detail Facility Start: 06-12-2006 Tobacco smoking stat us NHIS Former smoker [facility] Start: 06-12-2006 Alcohol intake Current non-dr copy writer of alcohol (finding) [facility] Sex Assigned At Not on file [facility] Advance Directives Documents on File Type Date Recorded Patient Deputy County Attorney Expl anation Advance Directive(s) 01/27/2016 7:37 AM Additional Source Comments Source Comments (unrecognize d section and content) In the event this informatio n is protected by the Federal Confidentiality of Alcohol and Drug Abuse Patient Records regulations: The Federal rules restrict any use of the information to criminally investigate or prosecute any alcohol or drug abuse patient.[facility] FOR RECORDS PERTAINING TO PATIENTS WHO ARE OR HAVE BEEN ENROLLED IN A CHEMICAL DEPENDENCY/SUBSTANCEABUSE PROGRAM, SOME INFORMATION MAY BE OMITTED. This clinical summary was aggregated from multiple sources. Caution should be exercised in using it in the provision of clinical care. This summary normalizes information from multiple sources, and as a consequence, information in this document may materially change the coding, format and clinical context of patient data. In addition, data may be omitted in some cases. CLINICAL DECISIONS SHOULD BE BASED ON THE PRIMARY CLINICAL RECORDS. [facility] [employer] [facility]. provides no warranty or guarantee of the accuracy or completeness of information in this document.
== END | disposition home or self-care (01) ==
PROVIDERS: Family Medicine; PCP Family Medicine; Referring Provider Family Medicine; Visit Provider Family Medicine
DX: E55.9 Vitamin D deficiency, unspecified (principal); N18.2 Chronic kidney disease, stage 2 (mild)
CPT/HCPCS: 36415; 80053; 82306

== ENCOUNTER 2024-09-13 16:15 | Inpatient (IN) | payer MEDICARE, SELFPAY ==
[2024-09-11 11:49] LABS: Pathologist Comment May follow
[2024-09-11 12:01] LABS: Anion Gap 11 (5-15); BUN 29 mg/dL (4-19); BUN/Creat Ratio 28.5 RATIO (10-20); Calcium,Total 9.5 mg/dL (7.6-11.0); Carbon Dioxide 31.1 mmol/L (21.0-32.0); Chloride 96 mmol/L (98-108); Creatinine, Serum 1.01 mg/dL (0.70-1.20); EST Glomerular Filtration Rate 58 (>60); Glucose 105 mg/dL (70-99); Potassium 3.3 mmol/L (3.3-5.1); Sodium Level 137 mmol/L (133-145)
[2024-09-11 13:27] LABS: Synovial Fld Polynuclear WBC # 34.879 10^3/uL
[2024-09-11 13:39] LABS: RBC /Synovial Fluid 0.015 10^6/uL (0)
[2024-09-11 14:10] LABS: AUTO B FLUID DILUENT BKGD CT WBC <0.1 RBC <0.01 (W<.1,R<.01); Appearance /Synovial Fluid Cloudy (CLEAR); Body Fluid QC Type(s) BF2Q; Color / Synovial Fluid Yellow (Pale Yellow); Lymph 4 %; Monocyte /Synovial Fluid 2 %; Neutrophil 94 % (0-25); Source / Synovial Fluid SHOULDER; Viscosity / Synovial Fluid Viscous (HIGH)
[2024-09-12 08:51] LABS: Hematocrit 37.2 % (37-47); Hemoglobin 12.2 g/dL (12.0-15.0); Mean Corp Hgb Conc 32.8 g/dL (32-36); Mean Corpuscular Volume 91.6 fL (81-99); Mean Platelet Vol. 10.1 fl (6.2-12.0); Platelet Count 230 K/mm3 (150-450); RBC Distribution Width CV 13.7 % (11.6-14.6); RBC Distribution Width SD 47.1 fl (35.1-43.9); Red Blood Count 4.06 M/mm3 (4.2-5.4)
[2024-09-12 09:35] LABS: Magnesium 1.7 mg/dL (1.5-2.2)
--- NOTE | 2024-09-12 11:20 | PAT.ANE_ITS ---
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 When Was Last Pacemaker Check QUESTION #4 FULL TEXT: You/Your Family Experience fever (hyperthermia) with Anesthesia Last Oral Intake Last Oral intake: Last Oral Intake NPO since Meds taken in AM with sips of water? Meds patient instructed to take am of surgery PONV PONV - corporate legal secretary: PONV - corporate legal secretary Female Yes 09/11/24 15:02 HX of Motion Sickness No 09/11/24 15:02 HX of N/V After Surgery No 09/11/24 15:02 Non-Smoker Yes 09/11/24 15:02 Duration of Surgery greater Yes 09/11/24 15:02 than 60 minutes Number of Risk Factors 3 09/11/24 15:02 PONV Score Moderate Risk 09/11/24 15:02 Height & Weight Height & Weight: Anesthesia: Height & Weight Height 5 ft 6 in 05/05/22 15:52 Respiratory Assessment Respiratory Assessment - corporate legal secretary: Respiratory Tract Infection Hx - corporate legal secretary Hx Respiratory Tract Infection No 09/11/24 15:02 STOP Sleep Apnea STOP Sleep Apnea - corporate legal secretary: STOP Sleep Apnea - corporate legal secretary Hx Hypertension Yes: CONTROLLED WITH MED 09/11/24 15:02 Hx Sleep Apnea No 09/11/24 15:02 CPAP No 06/24/20 10:56 BIPAP No 06/11/20 14:41 Do you snore loudly (louder Yes 09/11/24 15:02 than talking or can be heard Do you often feel tired/ Yes 09/11/24 15:02 fatigued/ sleepy during daytime? Has anyone observed you stop No 09/11/24 15:02 breathing during sleep? STOP Results Positive 09/11/24 15:02 QUESTION #5 FULL TEXT : Do you snore loudly (louder than talking or can be heard through closed doors)? 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 Specify any problems Hx of Preganancy in last 3 No 09/11/24 15:02 Months Nurse Filling Out Transfusion DSCHRIBER 09/11/24 15:02 & Questions: Date: 09/11/24 09/11/24 15:02 Time: 15:04 09/11/24 15:02 Patient unable to answer at this time (ie. confused, unrespo /Reproduction History /Reproductive History - corporate legal secretary: /Reproductive Hx- corporate legal secretary Hx Now No 09/11/24 15:02 Gestational Age (in weeks): EDC: Hx Hx Para Hx Section SAB No 09/11/24 15:02 Active Medications Active Medications: Current Medications Generic Name Dose Route Start Last Admin Trade Name Freq PRN Reason Stop Dose Admin Acetaminophen 1,000 mg 09/13/24 13:30 Acetaminophen 500 Mg Tablet PO 09/13/24 13:31 X1 ONE Gabapentin 600 mg 09/13/24 13:30 Gabapentin 600 Mg Tablet PO 09/13/24 13:31 X1 ONE Vancomycin HCl 1,500 mg/ 530 mls @ 250 mls/hr 09/13/24 13:30 Sodium Chloride IV Q12H KACEY Insulin Human Lispro 1 - 6 unit 09/13/24 13:30 Insulin Lispro 100 Unit/Ml Insuln.Pen SC Q4H PRN PRN BG>/= 180, SEE PROTOCOL Protocol PFSH Medical History Wears glasses Post-menopausal Depression Anxiety Walker as ambulation aid Ambulates with cane Arthritis High cholesterol Back pain Restless legs Former smoker Shortness of breath on exertion History of pain when walking History of edema Hypertension Home Medications ?Medication ?Instructions ?Recorded ?Last Taken ?Type losartan 50 mg tablet 50 mg PO BID BP 09/19/14 History melatonin 5 mg tablet 10 mg PO QHS INSOMNIA Unknown History indapamide 1.25 mg tablet 2.5 mg PO DAILY BP 04/12/17 Unknown History pramipexole 0.5 mg tablet (Mirapex) 1 mg PO QHS RLS Unknown History bupropion HCl 300 mg 24 hr tablet, 150 mg PO DAILY DEP RESSION 06/11/20 Unknown History extended release gabapentin 600 mg tablet 600 mg PO QHS SLEEP 06/11/20 Unknown History mirtazapine 15 mg tablet 15 mg PO QHS INSOMNIA 06/23/20 20:00 History amlodipine 10 mg tablet 5 mg PO BID BP 09/11/24 Unkn own History duloxetine 30 mg capsule,delayed 30 mg PO DAILY DEPRES RAHEEM 09/11/24 Unknown History release (Cymbalta) pramipexole 0.5 mg tablet 0.5 mg PO DINNER RLS 5 Unknown History Allergy/AdvReac Type Severity Reaction Status Date / Time Penicillins Allergy Anaphylaxis Verified 09/11/24 14:53 Surgical History (Updated 09/11/24 @ 15:15 by Debbie Russo) History of surgery Hx of colonoscopy Hx of right cataract extraction Hx of left cataract extraction History of partial colectomy Hx of appendectomy Hx of total hip arthroplasty Hx of total shoulder replacement Hx of lumbar discectomy Hx of total shoulder replacement Hx of total hip arthroplasty Social History Smoking Status: Former smoker Audit: Pertinent Findings Pertinent Findings EKG Perinent findings: Sinus rhythm with 1st degree A-V block Recommendation Anesthesia Recommendation Anesthesia recommendation: F/U recommended (Repeat EKG please. Last one was 5 years ago, showed 1st degree AV block. )
--- NOTE | 2024-09-12 12:01 | PAT.ANESEVAL ---
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 When Was Last Pacemaker Check QUESTION #4 FULL TEXT: You/Your Family Experience fever (hyperthermia) with Anesthesia Last Oral Intake Last Oral intake: Last Oral Intake NPO since Meds taken in AM with sips of water? Meds patient instructed to take am of surgery PONV PONV - tooth inspector: PONV - tooth inspector Female Yes 09/11/24 15:02 HX of Motion Sickness No 09/11/24 15:02 HX of N/V After Surgery No 09/11/24 15:02 Non-Smoker Yes 09/11/24 15:02 Duration of Surgery greater Yes 09/11/24 15:02 than 60 minutes Number of Risk Factors 3 09/11/24 15:02 PONV Score Moderate Risk 09/11/24 15:02 Height & Weight Height & Weight: Anesthesia: Height & Weight Height 5 ft 6 in 05/05/22 15:52 Respiratory Assessment Respiratory Assessment - tooth inspector: Respiratory Tract Infection Hx - tooth inspector Hx Respiratory Tract Infection No 09/11/24 15:02 STOP Sleep Apnea STOP Sleep Apnea - tooth inspector: STOP Sleep Apnea - tooth inspector Hx Hypertension Yes: CONTROLLED WITH MED 09/11/24 15:02 Hx Sleep Apnea No 09/11/24 15:02 CPAP No 06/24/20 10:56 BIPAP No 06/11/20 14:41 Do you snore loudly (louder Yes 09/11/24 15:02 than talking or can be heard Do you often feel tired/ Yes 09/11/24 15:02 fatigued/ sleepy during daytime? Has anyone observed you stop No 09/11/24 15:02 breathing during sleep? STOP Results Positive 09/11/24 15:02 QUESTION #5 FULL TEXT : Do you snore loudly (louder than talking or can be heard through closed doors)? 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 Specify any problems Hx of Preganancy in last 3 No 09/11/24 15:02 Months Nurse Filling Out Transfusion DSCHRIBER 09/11/24 15:02 & Questions: Date: 09/11/24 09/11/24 15:02 Time: 15:04 09/11/24 15:02 Patient unable to answer at this time (ie. confused, unrespo /Reproduction History /Reproductive History - tooth inspector: /Reproductive Hx- tooth inspector Hx Now No 09/11/24 15:02 Gestational Age (in weeks): EDC: Hx Hx Para Hx Section SAB No 09/11/24 15:02 Active Medications Active Medications: Current Medications Generic Name Dose Route Start Last Admin Trade Name Freq PRN Reason Stop Dose Admin Acetaminophen 1,000 mg 09/13/24 13:30 Acetaminophen 500 Mg Tablet PO 09/13/24 13:31 X1 ONE Gabapentin 600 mg 09/13/24 13:30 Gabapentin 600 Mg Tablet PO 09/13/24 13:31 X1 ONE Vancomycin HCl 1,500 mg/ 530 mls @ 250 mls/hr 09/13/24 13:30 Sodium Chloride IV Q12H KACEY Insulin Human Lispro 1 - 6 unit 09/13/24 13:30 Insulin Lispro 100 Unit/Ml Insuln.Pen SC Q4H PRN PRN BG>/= 180, SEE PROTOCOL Protocol PFSH Medical History Wears glasses Post-menopausal Depression Anxiety Walker as ambulation aid Ambulates with cane Arthritis High cholesterol Back pain Restless legs Former smoker Shortness of breath on exertion History of pain when walking History of edema Hypertension Home Medications ?Medication ?Instructions ?Recorded ?Last Taken ?Type losartan 50 mg tablet 50 mg PO BID BP 09/19/14 06/24/20 History melatonin 5 mg tablet 10 mg PO QHS INSOMNIA 09/19/14 Unknown History indapamide 1.25 mg tablet 2.5 mg PO DAILY BP 04/12/17 Unknown History pramipexole 0.5 mg tablet (Mirapex) 1 mg PO QHS RLS 04/12/17 Unknown History bupropion HCl 300 mg 24 hr tablet, 150 mg PO DAILY DEPRESSION 06/11/20 Unknown History extended release gabapentin 600 mg tablet 600 mg PO QHS SLEEP 06/11/20 Unknown History mirtazapine 15 mg tablet 15 mg PO QHS INSOMNIA 06/24/20 06/23/20 20:00 History amlodipine 10 mg tablet 5 mg PO BID BP 09/11/24 Unknown History duloxetine 30 mg capsule,delayed 30 mg PO DAILY DEPRESSION 09/11/24 Unknown History release (Cymbalta) pramipexole 0.5 mg tablet 0.5 mg PO DINNER RLS 09/11/24 Unknown History Allergy/AdvReac Type Severity Reaction Status Date / Time Penicillins Allergy Anaphylaxis Verified 09/11/24 14:53 Surgical History (Updated 09/11/24 @ 15:15 by Debbie Russo) History of surgery Hx of colonoscopy Hx of right cataract extraction Hx of left cataract extraction History of partial colectomy Hx of appendectomy Hx of total hip arthroplasty Hx of total shoulder replacement Hx of lumbar discectomy Hx of total shoulder replacement Hx of total hip arthroplasty Social History Smoking Status: Former smoker Audit: Pertinent Findings HISTORY of Pertinent Findings History of Pertinent Findings: EKG Pertinent Findings EKG Perinent findings Sinus rhythm with 1st degree 09/12/24 11:22 A-V block Pertinent Findings EKG Perinent findings: SR with 1st degree AV block 09/12/24 Recommendation Anesthesia Recommendation Anesthesia recommendation: OPTIMIZED for anesthesia
[2024-09-13] VITALS (12 sets, daily range): BP systolic 82–116; BP diastolic 50–96; PULSE 79–91; RESP 16–22; TEMP 36.1–36.7; O2SAT 92–98; BMI 36.3
--- NOTE | 2024-09-13 12:04 | PCM.PRE.AN2 ---
ASA Classification* ASA Classification ASA Classification: 2 Assessment & Plan Anesthesia* Anesthesia Assessment Anesthesia Assessment: Discussed sedation and/or anesthesia options, risks, benefits, and alternatives with patient/parents/legal guardian/POA. Questions invited. The patient/parents/legal guardian/POA seems to understand and agrees to proceed with anesthesia plan. Reviewed the physical assessment, medical history, allergy history and patient home medications list prior to surgery/procedure/anesthetic and documented any changes. Performed airway and anesthesia risk assessments. Anesthesia Type Anesthesia Type: General and Block Anesthesia Focused Assessment* Airway Assessment Mouth opens: >3 cm Mallampati Score: II Focused Labs Anesthesia Preop lab: CBC WBC 10.0 K/mm3 (4.4-11.0) 09/12/24 08:19 09/12/24 RBC 4.06 M/mm3 (4.2-5.4) L 09/12/24 08:19 09/12/24 Hgb 12.2 g/dL (12.0-15.0) 09/12/24 08:19 09/12/24 Hct 37.2 % (37-47) 09/12/24 08:19 09/12/24 Plt Count 230 K/mm3 (150-450) 09/12/24 08:19 09/12/24 CHEMISTRY Potassium 3.3 mmol/L (3.3-5.1) 09/11/24 11:21 09/11/24 Sodium 137 mmol/L (133-145) 09/11/24 11:21 09/11/24 Magnesium 1.7 mg/dL (1.5-2.2) 09/12/24 08:19 09/12/24 BUN 29 mg/dL (4-19) H 09/11/24 11:21 09/11/24 Creatinine 1.01 mg/dL (0.70-1.20) 09/11/24 11:21 09/11/24 Glucose 105 mg/dL (70-99) H 09/11/24 11:21 09/11/24 POC Glucose 76 mg/dL (70-110) 06/24/20 07:35 06/24/20 TSH 1.61 uIU/mL (0.358-3.74) 10/19/23 11:51 10/19/23 COAG PT 12.6 SECONDS (11.7-14.9) 06/09/20 12:11 06/09/20 Pre-Assessment Diagnosis/Proposed Procedure Planned Operative Procedure(s): LEFT SHOULDER I&D REVISION LEFT SHOULDER Anesthesia History 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 When Was Last Pacemaker Check QUESTION #4 FULL TEXT: You/Your Family Experience fever (hyperthermia) with Anesthesia Last Oral Intake Last Oral intake: Last Oral Intake NPO since Meds taken in AM with sips of water? Meds patient instructed to take am of surgery PONV PONV - emissions technician: PONV - emissions technician Female Yes 09/11/24 15:02 HX of Motion Sickness No 09/11/24 15:02 HX of N/V After Surgery No 09/11/24 15:02 Non-Smoker Yes 09/11/24 15:02 Duration of Surgery greater Yes 09/11/24 15:02 than 60 minutes Number of Risk Factors 3 09/11/24 15:02 PONV Score Moderate Risk 09/11/24 15:02 Height & Weight Height & Weight: Anesthesia: Height & Weight Height 5 ft 6 in 05/05/22 15:52 Respiratory Assessment Respiratory Assessment - emissions technician: Respiratory Tract Infection Hx - emissions technician Hx Respiratory Tract Infection No 09/11/24 15:02 STOP Sleep Apnea STOP Sleep Apnea - emissions technician: STOP Sleep Apnea - emissions technician Hx Hypertension Yes: CONTROLLED WITH MED 09/11/24 15:02 Hx Sleep Apnea No 09/11/24 15:02 CPAP No 06/24/20 10:56 BIPAP No 06/11/20 14:41 Do you snore loudly (louder Yes 09/11/24 15:02 than talking or can be heard Do you often feel tired/ Yes 09/11/24 15:02 fatigued/ sleepy during daytime? Has anyone observed you stop No 09/11/24 15:02 breathing during sleep? STOP Results Positive 09/11/24 15:02 QUESTION #5 FULL TEXT : Do you snore loudly (louder than talking or can be heard through closed doors)? 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 Specify any problems Hx of Preganancy in last 3 No 09/11/24 15:02 Months Nurse Filling Out Transfusion DSCHRIBER 09/11/24 15:02 & Questions: Date: 09/11/24 09/11/24 15:02 Time: 15:04 09/11/24 15:02 Patient unable to answer at this time (ie. confused, unrespo /Reproduction History /Reproductive History - emissions technician: /Reproductive Hx- emissions technician Hx Now No 09/11/24 15:02 Gestational Age (in weeks): EDC: Hx Hx Para Hx Section SAB No 09/11/24 15:02 Active Medications Active Medications: Current Medications Generic Name Dose Route Start Last Admin Trade Name Freq PRN Reason Stop Dose Admin Acetaminophen 1,000 mg 09/13/24 13:30 Acetaminophen 500 Mg Tablet PO 09/13/24 13:31 X1 ONE Gabapentin 600 mg 09/13/24 13:30 Gabapentin 600 Mg Tablet PO 09/13/24 13:31 X1 ONE Magnesium Sulfate 2 gm/ 104 mls @ 208 mls/hr 09/13/24 13:30 Dextrose IV 09/13/24 13:59 X1 ONE Vancomycin HCl 1,500 mg/ 530 mls @ 250 mls/hr 09/13/24 13:30 Sodium Chloride IV 09/13/24 15:31 X1 KACEY Clindamycin Phosphate 600 mg in 50 mls @ 100 mls/hr 09/13/24 13:30 Cleocin IV 09/13/24 13:59 PREOP ONE Sodium Chloride 1,000 mls @ 15 mls/hr 09/13/24 11:40 IV .Q48H KACEY Insulin Human Lispro 1 - 6 unit 09/13/24 13:30 Insulin Lispro 100 Unit/Ml Insuln.Pen SC Q4H PRN PRN BG>/= 180, SEE PROTOCOL Protocol [facility] Medical History Wears glasses Post-menopausal Depression Anxiety Walker as ambulation aid Ambulates with cane Arthritis High cholesterol Back pain Restless legs Former smoker Shortness of breath on exertion History of pain when walking History of edema Hypertension Home Medications ?Medication ?Instructions ?Recorded ?Last Taken ?Type losartan 50 mg tablet 50 mg PO BID BP 09/19/14 06/24/20 History melatonin 5 mg tablet 10 mg PO QHS INSOMNIA 09/19/14 Unknown History indapamide 1.25 mg tablet 2.5 mg PO DAILY BP 04/12/17 Unknown History pramipexole 0.5 mg tablet (Mirapex) 1 mg PO QHS RLS 04/12/17 Unknown History bupropion HCl 300 mg 24 hr tablet, 150 mg PO DAILY DEPRESSION 06/11/20 Unknown History extended release gabapentin 600 mg tablet 600 mg PO QHS SLEEP 06/11/20 Unknown History mirtazapine 15 mg tablet 15 mg PO QHS INSOMNIA 06/24/20 06/23/20 20:00 History amlodipine 10 mg tablet 5 mg PO BID BP 09/11/24 Unknown History duloxetine 30 mg capsule,delayed 30 mg PO DAILY DEPRESSION 09/11/24 Unknown History release (Cymbalta) pramipexole 0.5 mg tablet 0.5 mg PO DINNER RLS 09/11/24 Unknown History Allergy/AdvReac Type Severity Reaction Status Date / Time Penicillins Allergy Anaphylaxis Verified 09/11/24 14:53 Surgical History History of surgery Hx of colonoscopy Hx of right cataract extraction Hx of left cataract extraction History of partial colectomy Hx of appendectomy Hx of total hip arthroplasty Hx of total shoulder replacement Hx of lumbar discectomy Hx of total shoulder replacement Hx of total hip arthroplasty Social History Smoking Status: Former smoker Review of Systems (Anesthesia) ROS Narrative System reviewed and no additional complaints, except as documented.
[2024-09-13] MEDS: Gabapentin 600 MG Tablet PO ×2 (12:33→21:29)
[2024-09-13] MEDS: 0.9% Normal Saline (1000mL) 1,000 ML 15 ML IV (12:33)
[2024-09-13] MEDS: Acetaminophen 500 MG Tablet 1000 MG PO ×2 (12:33→21:28)
[2024-09-13] MEDS: Magnesium 2 GM for ERAS IV (12:33)
[2024-09-13 14:17] LABS: Bedside Glucose 88 mg/dL (74-106)
[2024-09-13] MEDS: Vancomycin HCl 1,500 MG in 0.9% Normal Saline (500mL Bag) 500 ML 250 MG IV (15:04)
[2024-09-13] MEDS: Clindamycin 600 MG/50 ML BAG 100 MG IV ×2 (15:04→19:42)
[2024-09-13] MEDS: Vancomycin IV 1,000 MG/20 ML Vial 2000 MG OPERA.SITE (16:00)
--- NOTE | 2024-09-13 16:20 | PCM.OPRPT ---
Operative Report (Standard) Operative Information Date of Procedure: 09/13/24 Pre-Operative Diagnosis: Left shoulder periprosthetic joint infection Post-Operative Diagnosis: Left shoulder periprosthetic joint infection Surgery/Procedure Performed: Irrigation debridement complete synovectomy revision left reverse total shoulder replacement revision rack puncher: Yes Professor Of Family Medicine: Odilon Pickett Tasks completed by assistant softball coach: Other (See body of operative report) Additional pest controller assistant?: No Type of Anesthesia: General RN Documented Start/Stop Times: Operation Date: 09/13/24 13:30 Case Time Into Pre-Op 09/13/24 11:38 Anesthesia Start 09/13/24 14:13 Into Room 09/13/24 14:13 Procedure Start 09/13/24 15:09 Procedure End 09/13/24 16:48 Anesthesia End 09/13/24 16:58 Out of Room 09/13/24 16:58 Into Recovery 09/13/24 17:03 Out of Recovery 09/13/24 18:05 Procedure Start Time: 15:09 Procedure Stop Time: 16:48 Select all DRAINS/GRAFTS/IMPLANTS that apply: Prosthetic device Prosthetic device details: [employer]Tech total shoulder 42 mm glenosphere, 42 mm +0 mm polyethylene, 42 mm humeral baseplate Special Medications: Cleocin and vancomycin were given after blood cultures were obtained. Estimated Blood Loss: 150 ml Fluids Replaced: 2000 mL crystalloid Specimen collected: Yes Description of specimen(s) removed: 3 separate specimens were sent to microbiology Description of surgery: On the date of the surgery patient was seen and evaluated in the preoperative area. Case was discussed with infectious disease who recommended we obtain blood cultures. Patient was signed on the left shoulder in the preoperative area. They were then taken back to the operating room where their transfer the table in the supine position. Anesthesia did address patient's hypotension. Based on the infection we did elect to proceed with surgery as this may be causing some of her hypotension. Anesthesia assumed control of the C-spine and airway and remained in control throughout the remainder the procedure. Anesthesia administered anesthetic and patient was positioned in the beachchair position with all bony prominences identified and well-padded and the head secured beachchair table. Once patient was adequately positioned left upper extremity was prepped in a sterile fashion while the surgeon scrubbed. Upon entering the room the left upper extremity was then draped in the sterile fashion, incision was marked out and timeout was called. Upon agreed upon the side, the site, the procedure to be performed, patient's identity and antibiotics given. Incision was taken down through skin subtenons tissue fat down the fascia. Once we got to the fascia we obtained hemostasis. We then were able to identify the cephalic vein and the deltopectoral interval. This was bluntly dissected once we are able to do this deltoid retractor was placed underneath the deltoid. Makenzie retractor was then placed in the wound and the arthrotomy was made. Once we made the arthrotomy gross purulent fluid copious amounts of it were suctioned from the joint. Once was done the humerus was released anteriorly so that we get dislocated and the she 1 was placed into the joint and the humerus was dislocated. The polyethylene was removed. Membrane was taken from behind the polyethylene. The baseplate was removed and membrane was taken from this. Posterior synovium was removed and sent for culture as well. Once was done the humerus was retracted out of the way further synovectomy was performed. We then remove the screw from the glenosphere and the glenosphere was dissociated from the baseplate. Once was done the Screws were removed from the baseplate. Membrane was also removed and the baseplate separate culture. Wound was further debrided of any synovectomy however inferior portion where there is significant neurovascular structures was carefully treated. Once a synovectomy was completed the wound is copiously irrigated out with 6 L normal saline under low-pressure lavage. We then irrigated out the joint with pulse lavage further to do any further debris. Any further debris was removed. Implants were opened on the back table. 42 mm glenosphere was then put into place screw was tightened this was done after replacing the 4 Screws with new Screws. Once this was tightened down and secured it was tested. We then exposed the humerus humeral baseplate was screwed into place with torque limiting screw. Polyethylene was impacted into place. Shoulder was reduced. Shoulder was taken through range of motion remained stable. There was not good the anterior tissue to repair at this time. A dilute Betadine lavage was performed for 3 minutes followed by Irrisept lavage. The deltopectoral interval was tagged with 4 Surgilon sutures and then run with #1 Vicryl. Deep layer was closed #1 Vicryl. Skin layer was closed with 2-0 Vicryl final skin closure was done with strata fix and nylon sutures. Sterile dressing was placed over the wound. Left upper extremities and placed in a sling. Patient was awakened by anesthesia and transferred back to recovery in stable condition. During the course of the procedure the physician grab jack worker (PE) played a vital role. Their intimate knowledge of my steps in the procedure aided in safe and expedient completion of the procedure. The PE played a vital rolls in positioning particularly in obtaining the appropriate beach chair position and securing the patient's body and head to the table. The PE was also vital in the retraction of soft tissues during the exposure and especially the glenoid work as this is a vital part of the procedure to prevent neurovascular damage. the PE was also vital and protecting soft tissues during times of bony cuts and reaming. He also played a vital role in closure with my direct supervision. The PE was also important during reduction and dislocation of the joint and trials intraoperatively. Postop plan: Patient will be weightbearing as tolerated. Will follow standard reverse total shoulder recovery protocol. Patient will receive IV vancomycin through the weekend as we follow cultures. Infectious disease will consult with the patient on Monday when they are back on service. Patient will need PICC line and IV antibiotics. Aspirin 81 mg p.o. twice daily for DVT prophylaxis. Surgical Findings: Gross purulence was encountered upon entering the joint. Synovectomy was performed. Interchangeable parts were removed and replaced. Complications Complications: No Admit VTE Documentation VTE Present on Admission: No VTE Mechan Device Prophylaxis: SCD's and Thigh High ELEAZAR Hose VTE Pharm Prophylaxis ordered?: Yes
--- NOTE | 2024-09-13 17:00 | RAD_ITS ---
PROCEDURE: SHOULDER MIN 2 VIEWS REASON FOR EXAM: POST OP TECHNIQUE: Two views of the left shoulder COMPARISON: None. FINDINGS: Status post left shoulder arthroplasty. Hardware is intact. No acute fracture or dislocation. Mild degenerative changes of the acromioclavicular joint. RAD/Shoulder min 2 Views IMPRESSION: See above Reading Location: [facility]
--- NOTE | 2024-09-13 17:11 | PCM.POST.ANE ---
Anesthesia: Postop Eval I Current Vital Signs Temperature: 97 F Pulse Rate: 80 Blood Pressure: 114/75 Respiratory Rate: 22 Pulse Ox: 95 Oxygen Delivery Method: Non-Rebreather Oxygen Flow Rate (L/min): 10 Assessment Airway patent: Yes Spontaneous unlabored respirations: Yes Mental status: Calm nausea: No Vomiting: No Anesthesia Complication: No Fluid Hydration Crystalloid volume administer (ml): 2,000 Total IV fluid infused: 2,000 Progress Note Anesthesia document: Postop Eval 1 completed: Yes
--- NOTE | 2024-09-13 19:10 | POSTOPAN2_ITS ---
Anesthesia Postop Eval I Sum Postop Eval Completion status Anesthesia document: Postop Eval 1 completed: Yes Anesthesia Postop Eval I Summary Anesthesia Postop Eval I Summary: Anesthesia Postop Eval I: Assessment Summary Airway patent Yes 09/13/24 17:12 [email or web address] Spontaneous unlabored Yes 09/13/24 17:12 [email or web address] respirations Mental status Calm 09/13/24 17:12 [email or web address] nausea No 09/13/24 17:12 MACHINE [email or web address] Vomiting No 09/13/24 17:12 [email or web address] Anesthesia Postop Eval I: Fluid Summary Crystalloid volume administer 2,000 09/13/24 17:12 [email or web address] (ml) Colloids volume administered ( ml) Blood Product volume administered (ml) Total IV fluid infused 2,000 09/13/24 17:12 [email or web address] Anesthesia Postop Eval I: Summary Notes Anesthesia Complication No 09/13/24 17:12 [email or web address] Anesthesia Complication Comment: Post-operative progress note Anesthesia: Postop Eval II Evaluation Mental status: Awake Pain Level: 1 nausea: No Vomiting: No
--- NOTE | 2024-09-13 19:10 | PCM.POSTANE2 ---
Anesthesia Postop Eval I Sum Postop Eval Completion status Anesthesia document: Postop Eval 1 completed: Yes Anesthesia Postop Eval I Summary Anesthesia Postop Eval I Summary: Anesthesia Postop Eval I: Assessment Summary Airway patent Yes 09/13/24 17:12 [email or web address] Spontaneous unlabored Yes 09/13/24 17:12 [email or web address] respirations Mental status Calm 09/13/24 17:12 [email or web address] nausea No 09/13/24 17:12 [email or web address] Vomiting No 09/13/24 17:12 [email or web address] Anesthesia Postop Eval I: Fluid Summary Crystalloid volume administer 2,000 09/13/24 17:12 [email or web address] (ml) Colloids volume administered ( ml) Blood Product volume administered (ml) Total IV fluid infused 2,000 09/13/24 17:12 [email or web address] Anesthesia Postop Eval I: Summary Notes Anesthesia Complication No 09/13/24 17:12 [email or web address] Anesthesia Complication Comment: Post-operative progress note Anesthesia: Postop Eval II Evaluation Mental status: Awake Pain Level: 1 nausea: No Vomiting: No
--- NOTE | 2024-09-13 19:33 | PCM.RX.CS ---
Consult Antibiotic Management Pharmacy has been consulted to manage selected antibiotic: Vancomycin Type of Intervention Type of Consult: New start Suspected Infection Suspected Infection: Other Labs Labs: Sodium 137 mmol/L (133-145) 09/11/24 11:21 Potassium 3.3 mmol/L (3.3-5.1) 09/11/24 11:21 Chloride 96 mmol/L (98-108) L 09/11/24 11:21 Carbon Dioxide 31.1 mmol/L (21.0-32.0) 09/11/24 11:21 Anion Gap 11 (5-15) 09/11/24 11:21 BUN 29 mg/dL (4-19) H 09/11/24 11:21 Creatinine 1.01 mg/dL (0.70-1.20) 09/11/24 11:21 Est GFR (MDRD) Non-Af 58 (>60) L 09/11/24 11:21 BUN/Creatinine Ratio 28.5 RATIO (10-20) H 09/11/24 11:21 Glucose 105 mg/dL (70-99) H 09/11/24 11:21 Microbiology Microbiology: Microbiology 09/12/24 08:19 Swab (Method) Nasal Screen MRSA/MSSA - Final 09/11/24 Unknown Fluid - Synovial (joint) Gram Stain - Final 09/11/24 Unknown Fluid - Synovial (joint) Body Fluid Culture - Preliminary Staphylococcus aureus 09/11/24 Unknown Fluid - Synovial (joint) Anaerobic Culture - Preliminary Dosing Weight Weight used for dosin.4 kg Estimated Creatinine Clearance Estimated Creatinine Clearance: 80.1 mL/mi Goal Trough Goal Trough: 15-20 mcg/mL Pharmacy Plan for Drug Dosing Pharmacy Plan for Drug Dosing: NEW START IV VANCOMYCIN Consulting Physician: Indication: Prophylaxis / Post-op Goal Trough: 15-20 SrCr: 1.01 mg/mL CrCl: 80.1 mL/min Comments: Patient received dose pre-op 1500mg, will consider first dose. Vancomycin Dose: 1750mg q12h Pending Level: 09/15/2024129 Pharmacy Service will continue to monitor and adjust dosing as required. Follow-Up Labs Follow-Up Labs: Trough: Vancomycin Date/Time Labs Ordered Labs to be done on [date and time ordered]: 09/15/2024129
[2024-09-13] MEDS: 0.9% Saline Lock 10 ML Syringe IV (19:45)
--- NOTE | 2024-09-13 19:58 | PCM.PN.HOSP ---
Reason for Visit Reason for Visit: Diagnoses Essential (primary) hypertension (09/13/24) Pain due to internal orthopedic prosthetic devices, implants and grafts, initial encounter (09/13/24) Encounter for other preprocedural examination (09/13/24) Presence of left artificial shoulder joint (09/13/24) Subjective Subjective Orthopedic consult for medical management placed shortly after patient arrived to third floor. She is postoperative day 0 after Left shoulder periprosthetic joint infection; s/p irrigation debridement with complete synovectomy and revision and Left reverse total shoulder replacement revision by Dr. Cavanaugh of orthopedic surgery. Her nerve block is still active at this time so she has minimal discomfort at this time. A review of her current medications versus her home medication shows that most of her her home medications have yet to be restarted. She denies current complaints with normal vital signs and there are no active medical issues to address otherwise. Objective Data Objective Data Vital Signs: Vital Signs Temp Pulse Resp BP Pulse Ox O2 Del Method O2 Flow Rate 97.3 F L 79 18 116/70 95 Nasal Cannula 4 09/13/24 18:26 09/13/24 18:26 09/13/24 18:26 09/13/24 18:26 09/13/24 18:26 09/13/24 18:26 09/13/24 18:26 Oxygen Flow Rate (L/min) 4 Oxygen Delivery Method Nasal Cannula Weight: 232 lb 5.875 oz Body Mass Index (BMI) 36.3 Intake & Output: Intake and Output for Last 24 Hours 09/11/24 09/12/24 09/13/24 23:59 23:59 23:59 Intake Total 2775.5 / 2775.5 Balance 2775.5 / 2775.5 Lab / Micro Data Attestation: I reviewed the patient's lab results. 09/12/24 08:19 09/11/24 11:21 Labs: Laboratory Results - last 24 hr 09/13/24 12:29: POC Glucose 88 Micro: Microbiology 09/12/24 08:19 Swab (Method) Nasal Screen MRSA/MSSA - Final 09/11/24 Unknown Fluid - Synovial (joint) Gram Stain - Final 09/11/24 Unknown Fluid - Synovial (joint) Body Fluid Culture - Preliminary Staphylococcus aureus 09/11/24 Unknown Fluid - Synovial (joint) Anaerobic Culture - Preliminary Radiography Diagnostic Testing: Radiology Impression Shoulder X-Ray 09/13/24 17:00 IMPRESSION: See above Reading Location: [facility] Physical Exam Const alert, oriented x3 and no apparent distress Constitutional Narrative: Obese. HEENT normocephalic, head/scalp atraumatic and hearing grossly normal bilaterally Head and Scalp: normal to inspection, normocephalic and atraumatic Eyes PERRL, EOMs intact bilaterally, conjunctivae normal and no scleral icterus Neck full ROM and no lymphadenopathy Lymph Lymphatic: no lymphadenopathy noted and no lymphedema noted Chest inspection of chest normal, palpation of chest normal, inspection of breasts normal and palpation of breasts normal Resp normal respiratory effort and normal air movement Cardio regular rate and regular rhythm GI normal to inspection, nondistended, normoactive bowel sounds, soft to palpation, non-tender and non-distended GI Narrative: Obese. Extremity Extremity Narrative: Left shoulder wrappings in place. Skin no rashes or lesions noted Neuro oriented x3, CN's II-XII intact bilaterally, moves all extremities and no focal motor deficits Psych mental status grossly normal, thought process normal, cooperative and affect normal Assessment & Plan Assessment/Plan (1) Hypertension: QUALIFIERS: Hypertension type: unspecified Qualified Code(s): I10 - Essential (primary) hypertension (2) Depression: QUALIFIERS: Depression Type: unspecified Qualified Code(s): F32.A - Depression, unspecified (3) Neuropathy: (4) Restless legs: (5) Insomnia: QUALIFIERS: Insomnia type: unspecified Qualified Code(s): G47.00 - Insomnia, unspecified PLAN: Plan 1. POD; 0 after Left shoulder periprosthetic joint infection; s/p irrigation debridement with complete synovectomy and revision and left reverse total shoulder replacement revision by Dr. Cavanaugh of orthopedic surgery - Continue current therapy ordered by orthopod. Patient has no active medical issues to address other than restarting her home medications which has been done since it was not done by admitting physician. Routine labs already pending in AM. 2. Essential Hypertension - Restart amlodipine and losartan as previous but hold indapamide for now. 3. Depression - Restart bupropion, duloxetine and mirtazapine as before. 4. Neuropathy - Resume gabapentin according to prior schedule. 5. RLS - Restart pramipexole q. HS. 6. Insomnia - Continue melatonin q. HS. 7. DVT prophylaxis - As per orthopedist. Total time: Approximately (but not less than) 35 minutes.
[2024-09-13] MEDS: Mirtazapine 15 MG Tablet PO (21:28)
[2024-09-13] MEDS: Aspirin 81 MG TAB.CHEW PO (21:28)
[2024-09-13] MEDS: Senna/Docusate Sodium 1 Tablet 2 TABLET PO (21:28)
[2024-09-13] MEDS: Pramipexole Di-HCl 1 MG Tablet PO (21:28)
[2024-09-13] MEDS: amLODIPine 5 MG Tablet PO (21:28)
[2024-09-13] MEDS: Losartan Potassium 50 MG Tablet PO (21:29)
[2024-09-13] MEDS: MELATONIN 10 MG TABLET PO (21:29)
[2024-09-14] VITALS (9 sets, daily range): BP systolic 84–110; BP diastolic 53–78; PULSE 62–88; RESP 18–24; TEMP 36.6–37.1; O2SAT 88–96
[2024-09-14] MEDS: Clindamycin 600 MG/50 ML BAG 100 MG IV ×2 (01:29→08:39)
[2024-09-14] MEDS: 0.9% Saline Lock 10 ML Syringe IV ×3 (01:29→14:13)
[2024-09-14] MEDS: Vancomycin HCl 1,750 MG in 0.9% Normal Saline (500mL Bag) 500 ML 250 MG IV (02:10)
[2024-09-14] MEDS: Acetaminophen 500 MG Tablet 1000 MG PO ×3 (05:45→22:58)
[2024-09-14] MEDS: oxyCODONE 5 MG Tablet PO ×3 (05:51→18:47)
[2024-09-14 07:17] LABS: Hematocrit 32.5 % (37-47); Hemoglobin 10.2 g/dL (12.0-15.0); Mean Corp Hgb Conc 31.4 g/dL (32-36); Mean Corpuscular Hgb 29.6 pg (27.0-32.0); Mean Corpuscular Volume 94.2 fL (81-99); Mean Platelet Vol. 10.1 fl (6.2-12.0); Platelet Count 239 K/mm3 (150-450); RBC Distribution Width SD 48.3 fl (35.1-43.9); Red Blood Count 3.45 M/mm3 (4.2-5.4); White Blood Count 11.3 K/mm3 (4.4-11.0)
--- NOTE | 2024-09-14 07:52 | PCM.PN.HOSP ---
Reason for Visit Reason for Visit: Diagnoses Depression, unspecified (09/13/24) Restless legs syndrome (09/13/24) Insomnia, unspecified (09/13/24) Polyneuropathy, unspecified (09/13/24) Essential (primary) hypertension (09/13/24) Pain due to internal orthopedic prosthetic devices, implants and grafts, initial encounter (09/13/24) Encounter for other preprocedural examination (09/13/24) Presence of left artificial shoulder joint (09/13/24) Subjective Subjective Patient is sitting up in chair, denies any dizziness, left arm in sling, otherwise no acute complaints, no chest pain or shortness of breath Objective Data Objective Data Vital Signs: Vital Signs Temp Pulse Resp BP Pulse Ox O2 Del Method O2 Flow Rate 98 F 62 18 110/58 L 95 Nasal Cannula 2 09/14/24 06:10 09/14/24 06:10 09/14/24 06:10 09/14/24 06:10 09/14/24 06:10 09/14/24 06:10 09/14/24 06:10 Oxygen Flow Rate (L/min) 2 Oxygen Delivery Method Nasal Cannula Weight: 105.4 kg Body Mass Index (BMI) 36.3 Intake & Output: Intake and Output for Last 24 Hours 09/12/24 09/13/24 09/14/24 23:59 23:59 23:59 Intake Total 2825.5 / 2825.5 585 / 585 Balance 2825.5 / 2825.5 585 / 585 Lab / Micro Data 09/14/24 06:57 09/14/24 06:57 Labs: Laboratory Results - last 24 hr 09/13/24 12:29: POC Glucose 88 09/14/24 06:57: WBC 11.3 H, RBC 3.45 L, Hgb 10.2 L, Hct 32.5 L, MCV 94.2, MCH 29.6, MCHC 31.4 L, RDW Std Deviation 48.3 H, RDW Coeff of Terry 14.0, Plt Count 239, MPV 10.1 Micro: Microbiology 09/11/24 Unknown Fluid - Synovial (joint) Gram Stain - Final 09/11/24 Unknown Fluid - Synovial (joint) Body Fluid Culture - Preliminary Meth. resistant Staph. aureus 09/12/24 08:19 Swab (Method) Nasal Screen MRSA/MSSA - Final Radiography Diagnostic Testing: Radiology Impression Shoulder X-Ray 09/13/24 17:00 IMPRESSION: See above Reading [facility] Physical Exam Narrative General: Alert, oriented, no apparent distress HEENT: Atraumatic, normocephalic Eyes: Anicteric, normal conjunctiva, extraocular movements grossly intact Neck: Supple Respiratory: Clear to auscultation bilaterally, normal respiratory effort Cardiovascular: Regular rate and rhythm GI: Soft, nontender, nondistended Extremities: No edema Musculoskeletal: Left arm in sling Neuro: No overt focal neurological deficits Skin: No rashes appreciated Psych: Cooperative Assessment & Plan Assessment/Plan (1) Hypertension: QUALIFIERS: Hypertension type: unspecified Qualified Code(s): I10 - Essential (primary) hypertension PLAN: Plan # Left shoulder periprosthetic joint infection -Status post irrigation debridement with complete synovectomy and revision and left reverse total shoulder replacement by Dr. Cavanaugh 09/13/2024 -Management per primary -Previous fluid culture growing MRSA -Patient on vancomycin -Awaiting IntraOp cultures, preliminary and several growing Staph aureus -ID consult after the weekend, they were contacted prior to surgery and recommended IV vancomycin over the weekend #Hypertension-now hypotension -Patient on amlodipine-this has now been held due to low blood pressure -Indapamide held -Given patient's blood pressure systolic only 84 this a.m., likely due to medications to help with pain and nighttime medications, and that patient is on ketorolac will also hold losartan for now -Add back/adjust blood pressure medications as indicated, currently continue to hold -Patient completely asymptomatic, blood pressure slow to improve could consider gentle IV fluids, no evidence of ongoing blood loss #Depression/anxiety -Continue home medications # Anemia -Hemoglobin 10.2 down from 12.2 on 09/12 -Suspect this is secondary to recent surgical intervention -Repeat in a.m. or sooner if any concerns for ongoing blood loss # Restless leg syndrome -continue patient's home medication regimen #DVT ppx: Timing and discretion per primary Emili Lee MD Time spent in the patient's overall evaluation, decision-making process, review of diagnostic data, adjustment of management, discussion with other providers, nursing and ancillary staff involved in patient's care documentation, 35 Minutes Charges/Coding Visit Charges Inpatient E&M: 50322 Subs Hosp L2
--- NOTE | 2024-09-14 08:31 | PCM.PN.ORT ---
Subjective Subjective Patient is doing well overall. She denies any chest pain or shortness of breath. She denies any dizziness with standing up. She denies any difficulties getting from bed to chair. She is sitting in the chair comfortably. She denies any numbness and tingling in the extremity. She reports improvements in her pain. Jerilyn preoperatively blood pressures overnight have primarily been in the 110s over 50-60. Nurse was taking blood pressure this morning machine did show 80/50ish on the forearm. Currently being retaken manually. Patient does not report any significant symptoms at this time. Again remains comfortable. Medical services on consultation for management of medical issues. Last recorded blood pressure 110/58. Patient did mention to me today that she had previously experienced blistering associated with a heating pad on her ankle likely some second-degree skin olivares. Patient does note open areas on the skin. Seem to be resolved at this time. Treated with topical antibiotic ointments. Objective Data Objective Data Vital Signs: Vital Signs Temp Pulse Resp BP Pulse Ox O2 Del Method O2 Flow Rate 98 F 62 18 110/58 L 95 Nasal Cannula 2 09/14/24 06:10 09/14/24 06:10 09/14/24 06:10 09/14/24 06:10 09/14/24 06:10 09/14/24 06:10 09/14/24 06:10 Oxygen Flow Rate (L/min) 2 Oxygen Delivery Method Nasal Cannula Weight: 232 lb 5.875 oz Body Mass Index (BMI) 36.3 Intake & Output: Intake and Output for Last 24 Hours 09/12/24 09/13/24 09/14/24 23:59 23:59 23:59 Intake Total 2825.5 / 2825.5 585 / 585 Balance 2825.5 / 2825.5 585 / 585 Lab / Micro Data 09/14/24 06:57 09/11/24 11:21 Labs: Laboratory Results - last 24 hr 09/13/24 12:29: POC Glucose 88 09/14/24 06:57: WBC 11.3 H, RBC 3.45 L, Hgb 10.2 L, Hct 32.5 L, MCV 94.2, MCH 29.6, MCHC 31.4 L, RDW Std Deviation 48.3 H, RDW Coeff of Terry 14.0, Plt Count 239, MPV 10.1 Micro: Microbiology 09/11/24 Unknown Fluid - Synovial (joint) Gram Stain - Final 09/11/24 Unknown Fluid - Synovial (joint) Body Fluid Culture - Preliminary Meth. resistant Staph. aureus 09/12/24 08:19 Swab (Method) Nasal Screen MRSA/MSSA - Final Radiography Diagnostic Testing: Radiology Impression Shoulder X-Ray 09/13/24 17:00 IMPRESSION: See above Reading Location: [facility] Physical Exam Narrative Left upper extremity: Dressing is clean dry intact. Minimal erythema. Sensations intact light touch axillary/R/M/U distally. Motor is intact R/M/U distally. 2+ radial pulse. Arm is in sling. Remainder of exam deferred secondary to pain and postoperative state. Const alert, oriented x3 and no apparent distress Assessment & Plan Assessment/Plan (1) Infection and inflammatory reaction due to other internal joint prosthesis, initial encounter: (2) History of reverse total replacement of right shoulder joint: PLAN: Postop day 1 irrigation debridement, synovectomy and revision left shoulder replacement interchangeable parts 1. Pain control: Patient requiring 1 oxycodone tablet at a time and Tylenol as scheduled. Continue current regimen hold narcotics were appropriate for hypotension 2. DVT prophylaxis: Aspirin 81 mg p.o. twice daily 3. Therapy: PT OT work on ADLs and gentle range of motion exercises follow total shoulder protocol 4. Infectious disease: Infectious disease will not be on service over the weekend. I did speak with them before surgery yesterday. Recommended vancomycin IV over the weekend. Patient's sensitivities have returned currently has MRSA from aspirate obtained September 11. Will follow cultures from intraoperatively. PICC line ordered. Currently, awaiting patient's BMP results. Pharmacology on consultation for antibiotic dosing of vancomycin. Blood cultures obtained before antibiotics administered yesterday awaiting results. Patient does note that she recently did have some blisters associated with using a heat pad on her feet. She noted redness around the area. She treated with topical triple antibiotic ointment seemed to resolve without significant issue. May be a source of infectious etiology. 5. Hb/Hct: 10.2/32.5 slightly decreased from preoperative hemoglobin of 12.2. Blood loss in relation to intraoperative and perioperative blood loss. Currently asymptomatic. Continue to monitor symptoms. 6. Hypotension: Patient presented to the hospital yesterday with hypotension manage intraoperatively. Remained stable overnight. Currently asymptomatic. Will continue to monitor. Medicine service may need to adjust hypertension medications recently started by PCP. 7. Postop constipation: Discussed with patient potential for constipation associate with narcotics. Patient currently on Senokot Disposition: PICC line was placed today. Will await final recommendations from infectious disease and antibiotic regimen well as infectious ease follow-up prior to discharge. Will focus on training patient on PICC line over the weekend. Once we have final antibiotic regimen established patient should be ready for discharge as long as she remains medically stable for the weekend. After discussion with the patient plan will be for discharge home and dependent on patient's ability to manage PICC line and home antibiotic regimen. [facility] Office:
[2024-09-14 08:44] LABS: Anion Gap 12 (5-15); BUN 24 mg/dL (4-19); BUN/Creat Ratio 18.8 RATIO (10-20); Calcium,Total 8.3 mg/dL (7.6-11.0); Carbon Dioxide 26.4 mmol/L (21.0-32.0); Chloride 93 mmol/L (98-108); Creatinine, Serum 1.28 mg/dL (0.70-1.20); EST Glomerular Filtration Rate 44 (>60); Estimated Creatinine Clearance 47.43 ml/min (50-250); Glucose 111 mg/dL (70-99); Sodium Level 131 mmol/L (133-145)
[2024-09-14] MEDS: Senna/Docusate Sodium 1 Tablet 2 TABLET PO ×2 (09:19→22:57)
[2024-09-14] MEDS: DULoxetine Hcl 30 MG Capsule PO (09:19)
[2024-09-14] MEDS: Famotidine 20 MG Tablet PO (09:19)
[2024-09-14] MEDS: buPROPion (XL) 150 MG TABLET.XL PO (09:19)
[2024-09-14] MEDS: Aspirin 81 MG TAB.CHEW PO ×2 (09:20→22:57)
[2024-09-14] MEDS: Ensure Surgery 237 ML LIQUID PO ×2 (09:22→14:13)
--- NOTE | 2024-09-14 10:29 | NURSING ---
Spoke with [facility] and they are aware of the order to insert PICC line. Will call back with a time that RN will come.
--- NOTE | 2024-09-14 13:53 | CASEMGMT ---
JC KENNY Assessment: Face to Face with pt for initial transition planning/care coordination assessment. JC KENNY introduced self and role at [facility], pt voices understanding and consents to assessment. Pt is A&O x4 and answers all questions appropriately at this time. Pt sitting up in bed in no distress. Care providers, pharmacy, and demographics verified/updated. Strata: 1 PCP: Cornelio Specialists: Fide Cavanaugh Pharmacy: [facility] Insurance: [facility] D[facility], [facility] Prescription Benefit: yes LNOK: Familia Bell Living Arrangements: Pt lives alone in a 1 level apartment with 1 step to enter. ADLs: Pt reports I at baseline. Transportation: Pt drives self and denies concerns with transportation. DME: Walker, Cane, Shower bench HHC/SNF: Denies Hx of. JC KENNY discussed IV antibiotics with pt. Pt states she has a cousin and two granddaughters that are able to assist her with IV antibiotics at home. JC KENNY discussed HHC options, Pt states she would like to use [facility] HHC at time of DC. Denied wanting a list of HHC agencies. JC KENNY provided verbal list of providers for IV antibiotics, Pt selected [facility] as provider of choice for IV antibiotics. Pt states no further concerns/needs. CM to follow. Advised pt to ask CM if any further question/concerns/needs arise, voices understanding. Pt Goal: Home Plan: Home with HHC and family support. Jamel GREENE CM
[2024-09-14] MEDS: Vancomycin HCl 750 MG in 0.9% Normal Saline (250mL Bag) 250 ML 250 MG IV (14:12)
[2024-09-14] MEDS: 0.9% Normal Saline (1000mL) 1,000 ML 50 ML IV (15:52)
[2024-09-14] MEDS: Albuterol 2.5 MG/3 ML VIAL.NEB. INHALATION (17:24)
[2024-09-14] MEDS: Pramipexole Di-HCl 0.5 MG Tablet PO (17:53)
[2024-09-14] MEDS: Ketorolac 15 MG/ML Vial IV (17:55)
[2024-09-14] MEDS: Pramipexole Di-HCl 1 MG Tablet PO (22:57)
[2024-09-14] MEDS: MELATONIN 10 MG TABLET PO (22:58)
[2024-09-14] MEDS: Gabapentin 600 MG Tablet PO (22:58)
[2024-09-14] MEDS: Mirtazapine 15 MG Tablet PO (22:58)
[2024-09-15] VITALS (7 sets, daily range): BP systolic 116–135; BP diastolic 72–85; PULSE 69–97; RESP 18–28; TEMP 36.4–36.9; O2SAT 92–95
[2024-09-15] MEDS: Vancomycin HCl 750 MG in 0.9% Normal Saline (250mL Bag) 250 ML 250 MG IV (02:27)
[2024-09-15] MEDS: oxyCODONE 5 MG Tablet PO ×3 (06:08→20:40)
[2024-09-15] MEDS: Acetaminophen 500 MG Tablet 1000 MG PO ×3 (06:08→22:12)
[2024-09-15 06:41] LABS: Hematocrit 36.4 % (37-47); Hemoglobin 11.5 g/dL (12.0-15.0); Mean Corp Hgb Conc 31.6 g/dL (32-36); Mean Corpuscular Hgb 29.4 pg (27.0-32.0); Mean Corpuscular Volume 93.1 fL (81-99); Platelet Count 238 K/mm3 (150-450); RBC Distribution Width CV 14.1 % (11.6-14.6); RBC Distribution Width SD 48.1 fl (35.1-43.9); Red Blood Count 3.91 M/mm3 (4.2-5.4); White Blood Count 9.6 K/mm3 (4.4-11.0)
[2024-09-15 07:08] LABS: Anion Gap 11 (5-15); BUN 33 mg/dL (4-19); Calcium,Total 8.4 mg/dL (7.6-11.0); Carbon Dioxide 24.7 mmol/L (21.0-32.0); Chloride 99 mmol/L (98-108); Creatinine, Serum 1.12 mg/dL (0.70-1.20); EST Glomerular Filtration Rate 51 (>60); Estimated Creatinine Clearance 54.21 ml/min (50-250); Glucose 100 mg/dL (70-99); Potassium 4.1 mmol/L (3.3-5.1); Sodium Level 135 mmol/L (133-145)
[2024-09-15] MEDS: DULoxetine Hcl 30 MG Capsule PO (07:58)
[2024-09-15] MEDS: Aspirin 81 MG TAB.CHEW PO ×2 (07:58→22:13)
[2024-09-15] MEDS: Famotidine 20 MG Tablet PO (07:58)
[2024-09-15] MEDS: Senna/Docusate Sodium 1 Tablet 2 TABLET PO ×2 (07:59→22:12)
[2024-09-15] MEDS: buPROPion (XL) 150 MG TABLET.XL PO (08:00)
[2024-09-15] MEDS: Ensure Surgery 237 ML LIQUID PO (08:03)
--- NOTE | 2024-09-15 08:04 | PCM.PN.HOSP ---
Reason for Visit Reason for Visit: Diagnoses Depression, unspecified (09/14/24) Restless legs syndrome (09/14/24) Insomnia, unspecified (09/14/24) Polyneuropathy, unspecified (09/14/24) Essential (primary) hypertension (09/14/24) Infection and inflammatory reaction due to other internal joint prosthesis, initial encounter (09/14/24) Pain due to internal orthopedic prosthetic devices, implants and grafts, initial encounter (09/14/24) Encounter for other preprocedural examination (09/14/24) Presence of right artificial shoulder joint (09/14/24) Presence of left artificial shoulder joint (09/14/24) Subjective Subjective Patient reports chronic shortness of breath on exertion that has not been worked up in the past, she thinks maybe she has been more short of breath recently but she is unsure, denies swelling in her legs, no productive cough Objective Data Objective Data Vital Signs: Vital Signs Temp Pulse Resp BP Pulse Ox O2 Del Method O2 Flow Rate 97.5 F L 80 20 H 121/85 H 94 Nasal Cannula 2 09/15/24 02:18 09/15/24 02:18 09/15/24 02:18 09/15/24 02:18 09/15/24 02:18 09/15/24 02:30 09/15/24 02:30 Oxygen Flow Rate (L/min) 2 Oxygen Delivery Method Nasal Cannula Weight: 105.4 kg Body Mass Index (BMI) 36.3 Intake & Output: Intake and Output for Last 24 Hours 09/13/24 09/14/24 09/15/24 23:59 23:59 23:59 Intake Total 2825.5 / 2825.5 3834.17 / 3834.17 942.75 / 942.75 Balance 2825.5 / 2825.5 3834.17 / 3834.17 942.75 / 942.75 Lab / Micro Data 09/15/24 06:08 09/15/24 06:08 Labs: Laboratory Results - last 24 hr 09/14/24 06:57: Sodium 131 L, Potassium 4.0, Chloride 93 L, Carbon Dioxide 26.4, Anion Gap 12, BUN 24 H, Creatinine 1.28 H, Estim Creat Clear Calc 47.43 L, Est GFR (MDRD) Non-Af 44 L, BUN/Creatinine Ratio 18.8, Glucose 111 H, Calcium 8.3 09/15/24 06:08: WBC 9.6, RBC 3.91 L, Hgb 11.5 L, Hct 36.4 L, MCV 93.1, MCH 29.4, MCHC 31.6 L, RDW Std Deviation 48.1 H, RDW Coeff of Terry 14.1, Plt Count 238, MPV 10.0, Sodium 135, Potassium 4.1, Chloride 99, Carbon Dioxide 24.7, Anion Gap 11, BUN 33 H, Creatinine 1.12, Estim Creat Clear Calc 54.21, Est GFR (MDRD) Non-Af 51 L, BUN/Creatinine Ratio 29.0 H, Glucose 100 H, Calcium 8.4 Micro: Microbiology 09/13/24 Unknown Tissue - Shoulder Gram Stain - Final 09/13/24 Unknown Tissue - Shoulder Wound Culture - Preliminary Staphylococcus aureus 09/13/24 Unknown Tissue - Shoulder Gram Stain - Final 09/13/24 Unknown Tissue - Shoulder Wound Culture - Preliminary Staphylococcus aureus 09/13/24 Unknown Tissue - Shoulder Gram Stain - Final 09/13/24 Unknown Tissue - Shoulder Wound Culture - Preliminary Staphylococcus aureus 09/11/24 Unknown Fluid - Synovial (joint) Gram Stain - Final 09/11/24 Unknown Fluid - Synovial (joint) Body Fluid Culture - Preliminary Meth. resistant Staph. aureus 09/12/24 08:19 Swab (Method) Nasal Screen MRSA/MSSA - Final Physical Exam Narrative General: Alert, oriented, no apparent distress HEENT: Atraumatic, normocephalic Eyes: Anicteric, normal conjunctiva, extraocular movements grossly intact Neck: Supple Respiratory: No overt wheezes or rhonchi, normal respiratory effort Cardiovascular: Regular rate and rhythm GI: Soft, nontender, nondistended Extremities: No edema Musculoskeletal: Left arm in sling Neuro: No overt focal neurological deficits Skin: No rashes appreciated Psych: Cooperative Assessment & Plan Assessment/Plan (1) Hypertension: QUALIFIERS: Hypertension type: unspecified Qualified Code(s): I10 - Essential (primary) hypertension PLAN: Plan # Left shoulder periprosthetic joint infection -Status post irrigation debridement with complete synovectomy and revision and left reverse total shoulder replacement by Dr. Cavanaugh 09/13/2024 -Management per primary -Previous fluid culture growing MRSA -Patient on vancomycin -Awaiting IntraOp cultures, preliminary and several growing Staph aureus -ID consult after the weekend, they were contacted prior to surgery and recommended IV vancomycin over the weekend -09/15: On vancomycin, shoulder culture results thus far growing Staph aureus, blood culture no growth to date # Hypoxia -09/15: Patient 88% on room air has no home O2 requirements, chest x-ray with chronic changes, albuterol treatments as needed, COVID and influenza pending. Patient reports she does have chronic shortness of breath on exertion, unclear if this is all part of chronic process that had not been evaluated/worked up if there is a new component. Awaiting viral swabs #Hypertension-now hypotension -Patient on amlodipine-this has now been held due to low blood pressure -Indapamide held -Given patient's blood pressure systolic only 84 this a.m., likely due to medications to help with pain and nighttime medications, and that patient is on ketorolac will also hold losartan for now -Add back/adjust blood pressure medications as indicated, currently continue to hold -Patient completely asymptomatic, blood pressure slow to improve could consider gentle IV fluids, no evidence of ongoing blood loss -09/15: Blood pressure improved/stabilized, continue to hold home antihypertensives until this changes consistent # Anemia -Hemoglobin 10.2 down from 12.2 on 09/12 -Suspect this is secondary to recent surgical intervention -Repeat in a.m. or sooner if any concerns for ongoing blood loss -09/15: Improved today, no evidence of ongoing blood loss, no further workup Chronic medical problems: #Depression/anxiety -Continue home medications # Restless leg syndrome -continue patient's home medication regimen #DVT ppx: Timing and discretion per primary Emili Lee MD Time spent in the patient's overall evaluation, decision-making process, review of diagnostic data, adjustment of management, discussion with other providers, nursing and ancillary staff involved in patient's care documentation, 36 Minutes Charges/Coding Visit Charges Inpatient E&M: 49878 Subs Hosp L2
--- NOTE | 2024-09-15 08:07 | RAD_ITS ---
PROCEDURE: Chest radiographs REASON FOR EXAM: Hypoxia TECHNIQUE: Two views of the chest COMPARISON: 07/15/2021 FINDINGS: Cardiomediastinal silhouette is within normal limits. Unchanged coarse interstitial lung markings predominantly at the lung bases. No focal consolidation, pleural effusion or sizable pneumothorax. Emphysema. Right PICC line catheter in place. Bilateral shoulder prostheses. RAD/Chest PA and Lateral IMPRESSION: No acute airspace abnormality. Probable chronic interstitial changes at the nieves ng bases. Reading Location: [facility]
--- NOTE | 2024-09-15 08:11 | PCM.PN.ORT ---
Subjective Subjective Patient doing well overall. No acute events overnight. Remains on 2 L of oxygen. Denies any chest pain shortness of breath or dizziness with getting up and moving around. Therapy is into work with the patient this morning. Blood pressures improved from yesterday still slightly hypotensive. Objective Data Objective Data Vital Signs: Vital Signs Temp Pulse Resp BP Pulse Ox O2 Del Method O2 Flow Rate 97.5 F L 80 20 H 121/85 H 94 Nasal Cannula 2 09/15/24 02:18 09/15/24 02:18 09/15/24 02:18 09/15/24 02:18 09/15/24 02:18 09/15/24 02:30 09/15/24 02:30 Oxygen Flow Rate (L/min) 2 Oxygen Delivery Method Nasal Cannula Weight: 232 lb 5.875 oz Body Mass Index (BMI) 36.3 Intake & Output: Intake and Output for Last 24 Hours 09/13/24 09/14/24 09/15/24 23:59 23:59 23:59 Intake Total 2825.5 / 2825.5 3834.17 / 3834.17 942.75 / 942.75 Balance 2825.5 / 2825.5 3834.17 / 3834.17 942.75 / 942.75 Lab / Micro Data Attestation: I reviewed the patient's lab results. 09/15/24 06:08 09/15/24 06:08 Labs: Laboratory Results - last 24 hr 09/14/24 06:57: Sodium 131 L, Potassium 4.0, Chloride 93 L, Carbon Dioxide 26.4, Anion Gap 12, BUN 24 H, Creatinine 1.28 H, Estim Creat Clear Calc 47.43 L, Est GFR (MDRD) Non-Af 44 L, BUN/Creatinine Ratio 18.8, Glucose 111 H, Calcium 8.3 09/15/24 06:08: WBC 9.6, RBC 3.91 L, Hgb 11.5 L, Hct 36.4 L, MCV 93.1, MCH 29.4, MCHC 31.6 L, RDW Std Deviation 48.1 H, RDW Coeff of Terry 14.1, Plt Count 238, MPV 10.0, Sodium 135, Potassium 4.1, Chloride 99, Carbon Dioxide 24.7, Anion Gap 11, BUN 33 H, Creatinine 1.12, Estim Creat Clear Calc 54.21, Est GFR (MDRD) Non-Af 51 L, BUN/Creatinine Ratio 29.0 H, Glucose 100 H, Calcium 8.4 Micro: Microbiology 09/13/24 Unknown Tissue - Shoulder Gram Stain - Final 09/13/24 Unknown Tissue - Shoulder Wound Culture - Preliminary Staphylococcus aureus 09/13/24 Unknown Tissue - Shoulder Gram Stain - Final 09/13/24 Unknown Tissue - Shoulder Wound Culture - Preliminary Staphylococcus aureus 09/13/24 Unknown Tissue - Shoulder Gram Stain - Final 09/13/24 Unknown Tissue - Shoulder Wound Culture - Preliminary Staphylococcus aureus 09/11/24 Unknown Fluid - Synovial (joint) Gram Stain - Final 09/11/24 Unknown Fluid - Synovial (joint) Body Fluid Culture - Preliminary Meth. resistant Staph. aureus 09/12/24 08:19 Swab (Method) Nasal Screen MRSA/MSSA - Final Physical Exam Narrative Left upper extremity: Dressing is clean dry and intact. No surrounding erythema. Swelling is appropriate for patient's postoperative state. Positive thumbs up, okay sign, cross his fingers. Sensations intact light touch axillary/R/M/U distally. Palpable radial pulse Const alert, oriented x3 and no apparent distress Assessment & Plan Assessment/Plan (1) Infection and inflammatory reaction due to other internal joint prosthesis, initial encounter: (2) History of reverse total replacement of right shoulder joint: PLAN: Postop day 1 irrigation debridement, synovectomy and revision left shoulder replacement interchangeable parts 1. Pain control: Patient requiring 1 oxycodone tablet at a time and Tylenol as scheduled. Continue current regimen hold narcotics were appropriate for hypotension 2. DVT prophylaxis: Aspirin 81 mg p.o. twice daily 3. Therapy: PT OT work on ADLs and gentle range of motion exercises follow total shoulder protocol 4. Infectious disease: Infectious disease will not be on service over the weekend. I did speak with them before surgery Monday. Recommended vancomycin IV over the weekend. Patient's sensitivities have returned currently has MRSA from aspirate obtained September 11. Intraoperative cultures now 3 out of 3 Staph aureus. PICC line ordered. Patient's BMP shows a BUN increased the last 2 days at this point I have lowered the vancomycin trough to 10-15. Would appreciate from otology input. Pharmacology on consultation for antibiotic dosing of vancomycin. Blood cultures obtained before antibiotics administered yesterday awaiting results. Patient does note that she recently did have some blisters associated with using a heat pad on her feet. She noted redness around the area. She treated with topical triple antibiotic ointment seemed to resolve without significant issue. May be a source of infectious etiology. 5. Hb/Hct: 11.5/36.4 improved from yesterday. Blood loss in relation to intraoperative and perioperative blood loss. Currently asymptomatic and improving postoperatively. Continue to monitor symptoms. 6. Hypotension: Some of the patient's home hypertensive medicines have been held. Appreciate medical management 7. Hypoxia: Patient has remained on 2 L oxygen postoperatively. Appreciate medical management. Planned at this time appears to be tube obtain chest x-ray and respiratory panel. Heart rate has remained stable. Slight increase in respirations overnight as well. Medicine is on board. Will await these initial results prior to proceeding with any further workup. 8. Postop constipation: Discussed with patient potential for constipation associate with narcotics. Patient currently on Senokot Disposition: PICC line was placed today. Will await final recommendations from infectious disease and antibiotic regimen well as infectious ease follow-up prior to discharge. Will focus on training patient on PICC line over the weekend. Once we have final antibiotic regimen established patient should be ready for discharge as long as she remains medically stable for the weekend. After discussion with the patient plan will be for discharge home and dependent on patient's ability to manage PICC line and home antibiotic regimen. [facility] Office:
[2024-09-15] MEDS: Albuterol 2.5 MG/3 ML VIAL.NEB. INHALATION ×3 (11:13→20:55)
[2024-09-15] MEDS: Vancomycin Trough/Random Due 1 LAB MC (14:16)
[2024-09-15] MEDS: 0.9% Normal Saline (1000mL) 1,000 ML 15 ML IV (14:17)
[2024-09-15 14:20] LABS: Vancomycin, Trough Level 22.8 ug/mL (5.0-15.0)
--- NOTE | 2024-09-15 14:24 | PCM.RX.CS ---
Consult Antibiotic Management Pharmacy has been consulted to manage selected antibiotic: Vancomycin Type of Intervention Type of Consult: Follow-up Suspected Infection Suspected Infection: Skin/Soft tissue Prior Doses of Antibiotics Prior Doses of Antibiotics Received/Current Regimen: Vancomycin 750 mg Q12H last dose given 09/15 @ 0227 Labs Labs: Sodium 135 mmol/L (133-145) 09/15/24 06:08 Potassium 4.1 mmol/L (3.3-5.1) 09/15/24 06:08 Chloride 99 mmol/L (98-108) 09/15/24 06:08 Carbon Dioxide 24.7 mmol/L (21.0-32.0) 09/15/24 06:08 Anion Gap 11 (5-15) 09/15/24 06:08 BUN 33 mg/dL (4-19) H 09/15/24 06:08 Creatinine 1.12 mg/dL (0.70-1.20) 09/15/24 06:08 Est GFR (MDRD) Non-Af 51 (>60) L 09/15/24 06:08 BUN/Creatinine Ratio 29.0 RATIO (10-20) H 09/15/24 06:08 Glucose 100 mg/dL (70-99) H 09/15/24 06:08 Vancomycin Trough 22.8 ug/mL (5.0-15.0) H 09/15/24 13:30 Microbiology Microbiology: Microbiology 09/11/24 Unknown Fluid - Synovial (joint) Gram Stain - Final 09/11/24 Unknown Fluid - Synovial (joint) Body Fluid Culture - Preliminary Meth. resistant Staph. aureus 09/11/24 Unknown Fluid - Synovial (joint) Anaerobic Culture - Preliminary Checking for anaerobes, further studies to follow. 09/13/24 14:35 Blood Culture (Wb) - Left Wrist Blood Culture - Preliminary No growth in 48 hours. 09/15/24 11:10 Mucosa - Nasopharyngeal Coronavirus COVID-19 PCR - Final 09/13/24 Unknown Tissue - Shoulder Gram Stain - Final 09/13/24 Unknown Tissue - Shoulder Wound Culture - Preliminary Staphylococcus aureus 09/13/24 Unknown Tissue - Shoulder Gram Stain - Final 09/13/24 Unknown Tissue - Shoulder Wound Culture - Preliminary Staphylococcus aureus 09/13/24 Unknown Tissue - Shoulder Gram Stain - Final 09/13/24 Unknown Tissue - Shoulder Wound Culture - Preliminary Staphylococcus aureus 09/12/24 08:19 Swab (Method) Nasal Screen MRSA/MSSA - Final Dosing Weight Weight used for dosin kg Estimated Creatinine Clearance Estimated Creatinine Clearance: ~ 54 Goal Trough Goal Trough: 10-15 mcg/mL Pharmacy Plan for Drug Dosing Pharmacy Plan for Drug Dosing: Vancomycin trough = 22.8, hold for now, random in AM Pharmacy Service will continue to monitor and adjust dosing as required. Follow-Up Labs Follow-Up Labs: Trough: Vancomycin Date/Time Labs Ordered Labs to be done on [date and time ordered]: 09/16 @ 0600
[2024-09-15] MEDS: 0.9% Saline Lock 10 ML Syringe IV (17:23)
[2024-09-15] MEDS: Pramipexole Di-HCl 0.5 MG Tablet PO (17:24)
[2024-09-15] MEDS: Gabapentin 600 MG Tablet PO (22:12)
[2024-09-15] MEDS: Mirtazapine 15 MG Tablet PO (22:12)
[2024-09-15] MEDS: MELATONIN 10 MG TABLET PO (22:13)
[2024-09-15] MEDS: Pramipexole Di-HCl 1 MG Tablet PO (22:27)
[2024-09-16] VITALS (8 sets, daily range): BP systolic 133–165; BP diastolic 94–100; PULSE 84–98; RESP 16–20; TEMP 36.6–37.2; O2SAT 92–96
[2024-09-16] MEDS: oxyCODONE 5 MG Tablet PO ×3 (04:05→20:06)
[2024-09-16] MEDS: Albuterol 2.5 MG/3 ML VIAL.NEB. INHALATION (04:20)
[2024-09-16] MEDS: 0.9% Saline Lock 10 ML Syringe IV ×2 (06:10→07:35)
[2024-09-16] MEDS: Acetaminophen 500 MG Tablet 1000 MG PO ×3 (06:10→20:07)
[2024-09-16 06:25] LABS: Absolute Lymphocyte Count 1.07 X10^3/uL (0.83-4.51); Absolute Neutrophil Count 7.1 X10^3/uL (2.0-7.7); Basophil# 0.04 X10^3/uL; Basophil% 0.4 % (0-1); Eosinophils% 3.2 % (0-5); Hematocrit 35.3 % (37-47); Lymphocyte # 1.07 X10^3/ul (0.83-4.51); Lymphocyte % 11.6 % (19-41); Mean Corp Hgb Conc 31.2 g/dL (32-36); Mean Corpuscular Hgb 29.8 pg (27.0-32.0); Mean Corpuscular Volume 95.7 fL (81-99); Mean Platelet Vol. 9.4 fl (6.2-12.0); Monocyte# 0.65 X10^3/uL; NRBC Flagged by Analyzer 0 % (0-5); Neutrophil % 76.9 % (47-70); Platelet Count 261 K/mm3 (150-450); RBC Distribution Width CV 14.3 % (11.6-14.6); Red Blood Count 3.69 M/mm3 (4.2-5.4); White Blood Count 9.2 K/mm3 (4.4-11.0)
[2024-09-16 06:49] LABS: Anion Gap 7 (5-15); BUN 24 mg/dL (4-19); BUN/Creat Ratio 25.4 RATIO (10-20); Calcium,Total 8.9 mg/dL (7.6-11.0); Carbon Dioxide 32.4 mmol/L (21.0-32.0); Chloride 101 mmol/L (98-108); Creatinine, Serum 0.93 mg/dL (0.70-1.20); EST Glomerular Filtration Rate 64 (>60); Estimated Creatinine Clearance 65.28 ml/min (50-250); Glucose 108 mg/dL (70-99); Potassium 4.8 mmol/L (3.3-5.1); Sodium Level 140 mmol/L (133-145)
[2024-09-16 06:50] LABS: Vancomycin, Random Level 14.4 ug/mL (0.0-15.0)
--- NOTE | 2024-09-16 06:58 | PCM.RX.CS ---
Consult Antibiotic Management Pharmacy has been consulted to manage selected antibiotic: Vancomycin Type of Intervention Type of Consult: Follow-up Suspected Infection Suspected Infection: Skin/Soft tissue Prior Doses of Antibiotics Prior Doses of Antibiotics Received/Current Regimen: Vancomycin 750 mg Q12H last dose given 09/15 @ 0227 Labs Labs: Sodium 140 mmol/L (133-145) 09/16/24 06:00 Potassium 4.8 mmol/L (3.3-5.1) 09/16/24 06:00 Chloride 101 mmol/L (98-108) 09/16/24 06:00 Carbon Dioxide 32.4 mmol/L (21.0-32.0) H 09/16/24 06:00 Anion Gap 7 (5-15) 09/16/24 06:00 BUN 24 mg/dL (4-19) H 09/16/24 06:00 Creatinine 0.93 mg/dL (0.70-1.20) 09/16/24 06:00 Est GFR (MDRD) Non-Af 64 (>60) 09/16/24 06:00 BUN/Creatinine Ratio 25.4 RATIO (10-20) H 09/16/24 06:00 Glucose 108 mg/dL (70-99) H 09/16/24 06:00 Vancomycin Trough 22.8 ug/mL (5.0-15.0) H 09/15/24 13:30 Random Vancomycin 14.4 ug/mL (0.0-15.0) 09/16/24 06:00 Microbiology Microbiology: Microbiology 09/15/24 11:10 Mucosa - Nasopharyngeal Coronavirus COVID-19 PCR - Final 09/15/24 11:10 Mucosa - Nasopharyngeal Respiratory Panel (PCR) - Final 09/11/24 Unknown Fluid - Synovial (joint) Gram Stain - Final 09/11/24 Unknown Fluid - Synovial (joint) Body Fluid Culture - Preliminary Meth. resistant Staph. aureus 09/11/24 Unknown Fluid - Synovial (joint) Anaerobic Culture - Preliminary Checking for anaerobes, further studies to follow. 09/13/24 14:35 Blood Culture (Wb) - Left Wrist Blood Culture - Preliminary No growth in 48 hours. 09/13/24 Unknown Tissue - Shoulder Gram Stain - Final 09/13/24 Unknown Tissue - Shoulder Wound Culture - Preliminary Staphylococcus aureus 09/13/24 Unknown Tissue - Shoulder Gram Stain - Final 09/13/24 Unknown Tissue - Shoulder Wound Culture - Preliminary Staphylococcus aureus 09/13/24 Unknown Tissue - Shoulder Gram Stain - Final 09/13/24 Unknown Tissue - Shoulder Wound Culture - Preliminary Staphylococcus aureus 09/12/24 08:19 Swab (Method) Nasal Screen MRSA/MSSA - Final Dosing Weight Weight used for dosin kg Estimated Creatinine Clearance Estimated Creatinine Clearance: ~ 65 Goal Trough Goal Trough: 10-15 mcg/mL Pharmacy Plan for Drug Dosing Pharmacy Plan for Drug Dosing: Vancomycin random = 14.4, resume dosing with 1000 mg Q24H Pharmacy Service will continue to monitor and adjust dosing as required. Follow-Up Labs Follow-Up Labs: Trough: Vancomycin Date/Time Labs Ordered Labs to be done on [date and time ordered]: 09/18/24 @ 1567
[2024-09-16] MEDS: Vancomycin IV 1,000 MG/200 ML BAG 200 MG IV (07:35)
--- NOTE | 2024-09-16 10:05 | CASEMGMT ---
JC CM into pt room, pt just came back from bathroom. Pt states her original plan was to go home but now she feels she needs to get further rehab before going home. She is aware that the SW will be in to give options for where she can rehab. Referral cancelled to [facility] at this time. Received IV order from ID, filed in chart. Updated SW.
--- NOTE | 2024-09-16 10:19 | CASEMGMT ---
Discharge Planning A list of?SNF providers including quality and resource use data and consistent with the patient's preferred geographic region, medical needs, and insurance network was created in [facility] Guide.? This list was provided to the SW. Comfort Harvey Discharge Planning Asst.
[2024-09-16] MEDS: Aspirin 81 MG TAB.CHEW PO ×2 (10:25→20:07)
[2024-09-16] MEDS: Senna/Docusate Sodium 1 Tablet 2 TABLET PO (10:25)
[2024-09-16] MEDS: DULoxetine Hcl 30 MG Capsule PO (10:25)
[2024-09-16] MEDS: buPROPion (XL) 150 MG TABLET.XL PO (10:25)
[2024-09-16] MEDS: Famotidine 20 MG Tablet PO (10:25)
[2024-09-16] MEDS: rifAMPin 300 MG Capsule PO ×2 (11:21→20:07)
--- NOTE | 2024-09-16 11:30 | EKG12_ITS ---
Test Reason : PREOP Blood Pressure : */* mmHG Vent. Rate : 87 BPM Atrial Rate : 87 BPM P-R Int : 224 ms QRS Dur : 108 ms QT Int : 376 ms P-R-T Axes : 63 59 93 degrees QTcB Int : 452 ms Sinus rhythm with 1st degree A-V block Nonspecific ST and T wave abnormality Abnormal ECG Confirmed by BRITTANY COTTER, MARIELENA ([id number]), editor map TRINITY ORTIZ ([id number]) on 09/16/2024 11:30:54 AM Referred By: Fahad Cavanaugh Confirmed By: MARIELENA SOTO MD
--- NOTE | 2024-09-16 12:16 | CHAPLAIN ---
Type of Pastoral Visit _x__ Initial Visit ___ Follow-up Visit ___ On-call Visit ___ General Patient Visit ___ Spiritual Assessment ___ Family Conference ___ Bereavement ___ Rapid Response ___ Code Blue ___ Other (describe below) Pastoral Care Referral From _x__ Patient ___ Family ___ Nurse ___ Physician ___ Cotton Sampler ___ Sap Manager ___ Other (describe below) Sacrament/Intervention _x__ Active listening ___ Anointing ___ Sabianism ___ Bereavement ___ Communion _x__ Lesley exploration ___ ___ Life review _x__ Prayer ___ Reconciliation ___ Sacrament of Sick _x__ Supportive presence ___ Wedding ___ Other (describe below) Pastoral Comments patient is talkative and speaks about her lesley and the good support of friends; pt gives some details about how she discovered the infection in her shoulder; pt has some concerns about recovery when she is by herself so the plans are in the works for where she can go for some rehab; pt speaks highly of her sikh and pastors; pt has granddaughters in the area that will check on her too; pt welcomes prayer and asks for future visits if she is able to stay in this hospital for rehab
--- NOTE | 2024-09-16 12:21 | CASEMGMT ---
Addendum entered by Fanny Gong 09/16/24 15:04: Social Work- [facility] is verifying if insurance will cover abx and will reach out with a decision. SW remains available to follow. GREER Chacko Original Note: Social Work- SW met with pt to discuss preferences at discharge. SW introduced self and role. Pt selects [facility] as [facility]. A list of SNF providers including quality and resource use data and consistent with the patient?s preferred geographic region, medical needs, and insurance network were provided from the [facility] Guide. Pt will review list for additional choices. SW completed referral to TCU. SW remains available to follow. GREER Chacko
--- NOTE | 2024-09-16 13:57 | PCM.PN.ORT ---
Subjective Subjective Patient doing well. Denies any chest pain or calf pain. No new shortness of breath. Remains on 2 L of oxygen. Infectious ease was able to the patient this morning and placed patient on vancomycin IV for 6 weeks. PICC line is in place. Discharge planning has commenced. Patient will likely require senior care upon discharge to help administer IV antibiotics participate in therapy. Objective Data Objective Data Vital Signs: Vital Signs Temp Pulse Resp BP Pulse Ox O2 Del Method O2 Flow Rate 98.3 F 94 16 133/94 H 94 Nasal Cannula 2 09/16/24 07:44 09/16/24 07:44 09/16/24 07:44 09/16/24 07:44 09/16/24 10:43 09/16/24 10:43 09/16/24 10:43 Oxygen Flow Rate (L/min) 2 Oxygen Delivery Method Nasal Cannula Weight: 232 lb 5.875 oz Body Mass Index (BMI) 36.3 Intake & Output: Intake and Output for Last 24 Hours 09/14/24 09/15/24 09/16/24 23:59 23:59 23:59 Intake Total 3834.17 / 3834.17 1411.25 / 1411.25 2100 / 2100 Balance 3834.17 / 3834.17 1411.25 / 1411.25 2100 / 2100 Lab / Micro Data Attestation: I reviewed the patient's lab results. 09/16/24 06:00 09/16/24 06:00 Labs: Laboratory Results - last 24 hr 09/15/24 13:30: Vancomycin Trough 22.8 H 09/16/24 06:00: WBC 9.2, RBC 3.69 L, Hgb 11.0 L, Hct 35.3 L, MCV 95.7, MCH 29.8, MCHC 31.2 L, RDW Std Deviation 50.0 H, RDW Coeff of Terry 14.3, Plt Count 261, MPV 9.4, Immature Gran % (Auto) 0.900, Neut % (Auto) 76.9 H, Lymph % (Auto) 11.6 L, [place] % (Auto) 7.0, Eos % (Auto) 3.2, Baso % (Auto) 0.4, Absolute Neuts (auto) 7.1, Absolute Lymphs (auto) 1.07, Nucleated RBC % 0, Sodium 140, Potassium 4.8, Chloride 101, Carbon Dioxide 32.4 H, Anion Gap 7, BUN 24 H, Creatinine 0.93, Estim Creat Clear Calc 65.28, Est GFR (MDRD) Non-Af 64, BUN/Creatinine Ratio 25.4 H, Glucose 108 H, Calcium 8.9, Random Vancomycin 14.4 Micro: Microbiology 09/13/24 Unknown Tissue - Shoulder Gram Stain - Final 09/13/24 Unknown Tissue - Shoulder Wound Culture - Final Staphylococcus aureus 09/13/24 Unknown Tissue - Shoulder Anaerobic Culture - Preliminary Checking for anaerobes, further studies to follow. 09/13/24 Unknown Tissue - Shoulder Gram Stain - Final 09/13/24 Unknown Tissue - Shoulder Wound Culture - Final Staphylococcus aureus 09/13/24 Unknown Tissue - Shoulder Anaerobic Culture - Preliminary Checking for anaerobes, further studies to follow. 09/13/24 Unknown Tissue - Shoulder Gram Stain - Final 09/13/24 Unknown Tissue - Shoulder Wound Culture - Final Staphylococcus aureus 09/13/24 Unknown Tissue - Shoulder Anaerobic Culture - Preliminary Checking for anaerobes, further studies to follow. 09/11/24 Unknown Fluid - Synovial (joint) Gram Stain - Final 09/11/24 Unknown Fluid - Synovial (joint) Body Fluid Culture - Final Meth. resistant Staph. aureus 09/11/24 Unknown Fluid - Synovial (joint) Anaerobic Culture - Preliminary Checking for anaerobes, further studies to follow. 09/15/24 11:10 Mucosa - Nasopharyngeal Coronavirus COVID-19 PCR - Final 09/15/24 11:10 Mucosa - Nasopharyngeal Respiratory Panel (PCR) - Final 09/13/24 14:35 Blood Culture (Wb) - Left Wrist Blood Culture - Preliminary No growth in 48 hours. 09/12/24 08:19 Swab (Method) Nasal Screen MRSA/MSSA - Final Physical Exam Narrative Left upper extremity: Exam stable neurovascular intact distally. Dressing is clean dry intact. No erythema. Const alert, oriented x3 and no apparent distress Assessment & Plan Assessment/Plan (1) Infection and inflammatory reaction due to other internal joint prosthesis, initial encounter: (2) History of reverse total replacement of right shoulder joint: PLAN: Postop day 3 irrigation debridement, synovectomy and revision left shoulder replacement interchangeable parts 1. Pain control: Patient requiring 1 oxycodone tablet at a time and Tylenol as scheduled. Continue current regimen hold narcotics were appropriate for hypotension 2. DVT prophylaxis: Aspirin 81 mg p.o. twice daily 3. Therapy: PT OT work on ADLs and gentle range of motion exercises follow total shoulder protocol. 4. Infectious disease: Infectious disease was able to see and evaluate the patient today. Have recommended vancomycin IV for 6 weeks. Patient's sensitivities have returned currently has MRSA from aspirate obtained September 11. Intraoperative cultures now 3 out of 3 MSSA. PICC line ordered. Patient's BMP shows a BUN improved today. 5. Hb/Hct: 11.0/35.3 improved from yesterday. Blood loss in relation to intraoperative and perioperative blood loss. Currently asymptomatic and improving postoperatively. Continue to monitor symptoms. 6. Hypotension: Improved on vitals today. Appreciate medical management 7. Hypoxia: Patient has remained on 2 L oxygen postoperatively. Appreciate medical management. Chest x-ray showed only chronic changes. Respiratory panel negative 8. Postop constipation: Discussed with patient potential for constipation associate with narcotics. Patient currently on Senokot Disposition: PICC line in place. Plan for 6 weeks IV vancomycin. Initial plans were for discharge home however, patient doing poorly with physical therapy and unable to manage IV antibiotics at home. We are currently attempting to look for placement in a senior care facility. Once we have an accepting facility will need to obtain pre-CERT. Patient demonstrates an understanding. [facility] Office:
--- NOTE | 2024-09-16 14:44 | PCM.CONS.GEN ---
Assessment & Plan Assessment/Plan (1) Infection and inflammatory reaction due to other internal joint prosthesis, initial encounter: PLAN: Aspiration cx with MRSA. Taken to OR 09/13/[address] Cavanaugh for revision; surg cx x2 with MSSA. On vanc, will continue. Picc in place. Plan is for iv vanc and po rifampin for 6 weeks with stop date 10/25/24 with weekly labs. After that, will need long course suppressive po abx. Counseled her that her home meds may be less effective while on rifampin. Also risk of liver dysfunction and reviewed potential signs. ID followup in 2 weeks. Will follow, thank you, wrote rx, d/w Dr. Cavanaugh on 09/13/24, d/w rn case manager this AM HPI Consult Data Date of Consult: 09/16/24 HPI Narrative Reason for Consultation: PJI HPI Narrative: OSCAR ROMAN, is a 74 F who had L shoulder replacement about 7 years ago. Presented with one week new pain to L shoulder. No known inciting event. No fever or chills. No redness, swelling, or drainage. Pain was moderate, worse with movement. Had aspiration done as outpt, then admitted and taken to surgery 09/13/[address] Cavanaugh for revision. She is R handed. No n/v/d. Full ROS performed and neg except as noted above. [facility] Medical History MRSA (methicillin resistant staph aureus) culture positive Wears glasses Post-menopausal Depression Anxiety Walker as ambulation aid Ambulates with cane Arthritis High cholesterol Back pain Restless legs Former smoker Shortness of breath on exertion History of pain when walking History of edema Hypertension Home Medications ?Medication ?Instructions ?Recorded ?Last Taken ?Type losartan 50 mg tablet 50 mg PO BID BP 09/19/14 09/13/24 History melatonin 5 mg tablet 10 mg PO QHS INSOMNIA 09/19/14 Unknown History indapamide 1.25 mg tablet 2.5 mg PO DAILY BP 04/12/17 Unknown History pramipexole 0.5 mg tablet (Mirapex) 1 mg PO QHS RLS 04/12/17 Unknown History bupropion HCl 300 mg 24 hr tablet, 150 mg PO DAILY DEPRESSION 06/11/20 09/13/24 History extended release gabapentin 600 mg tablet 600 mg PO QHS SLEEP 06/11/20 Unknown History mirtazapine 15 mg tablet 15 mg PO QHS INSOMNIA 06/24/20 06/23/20 20:00 History amlodipine 10 mg tablet 5 mg PO BID BP 09/11/24 09/13/24 History duloxetine 30 mg capsule,delayed 30 mg PO DAILY DEPRESSION 09/11/24 09/13/24 History release (Cymbalta) pramipexole 0.5 mg tablet 0.5 mg PO DINNER RLS 09/11/24 Unknown History rifampin 300 mg capsule 300 mg PO BID 39 days #78 caps 09/16/24 Unknown Rx vancomycin 1 gram/200 mL in 1,000 mg IV Q24H 39 days #3,900 mL 09/16/24 Unknown Rx dextrose 5 % intravenous piggyback Allergy/AdvReac Type Severity Reaction Status Date / Time Penicillins Allergy Anaphylaxis Verified 09/13/24 12:05 Surgical History History of surgery Hx of colonoscopy Hx of right cataract extraction Hx of left cataract extraction History of partial colectomy Hx of appendectomy Hx of total hip arthroplasty Hx of total shoulder replacement Hx of lumbar discectomy Hx of total shoulder replacement Hx of total hip arthroplasty Social History Smoking Status: Former smoker Physical Exam Const alert, oriented x3 and no apparent distress General Appearance: cooperative HEENT normocephalic and head/scalp atraumatic Eyes PERRL and EOMs intact bilaterally Neck supple and No nodes Resp normal air movement and clear to auscultation bilaterally Cardio regular rate and regular rhythm GI soft to palpation, non-tender and non-distended Extremity General Extremity: Negative for edema Skin no rashes or lesions noted Skin Narrative: Picc in RUE, LUE in sling Neuro CN's II-XII intact bilaterally Lab / Micro Data Attestation: I reviewed the patient's lab results. 09/16/24 06:00 09/16/24 06:00 Labs: Laboratory Results - last 24 hr 09/16/24 06:00: WBC 9.2, RBC 3.69 L, Hgb 11.0 L, Hct 35.3 L, MCV 95.7, MCH 29.8, MCHC 31.2 L, RDW Std Deviation 50.0 H, RDW Coeff of Terry 14.3, Plt Count 261, MPV 9.4, Immature Gran % (Auto) 0.900, Neut % (Auto) 76.9 H, Lymph % (Auto) 11.6 L, [place] % (Auto) 7.0, Eos % (Auto) 3.2, Baso % (Auto) 0.4, Absolute Neuts (auto) 7.1, Absolute Lymphs (auto) 1.07, Nucleated RBC % 0, Sodium 140, Potassium 4.8, Chloride 101, Carbon Dioxide 32.4 H, Anion Gap 7, BUN 24 H, Creatinine 0.93, Estim Creat Clear Calc 65.28, Est GFR (MDRD) Non-Af 64, BUN/Creatinine Ratio 25.4 H, Glucose 108 H, Calcium 8.9, Random Vancomycin 14.4 Micro: Microbiology 09/13/24 Unknown Tissue - Shoulder Gram Stain - Final 09/13/24 Unknown Tissue - Shoulder Wound Culture - Final Staphylococcus aureus 09/13/24 Unknown Tissue - Shoulder Anaerobic Culture - Preliminary Checking for anaerobes, further studies to follow. 09/13/24 Unknown Tissue - Shoulder Gram Stain - Final 09/13/24 Unknown Tissue - Shoulder Wound Culture - Final Staphylococcus aureus 09/13/24 Unknown Tissue - Shoulder Anaerobic Culture - Preliminary Checking for anaerobes, further studies to follow. 09/13/24 Unknown Tissue - Shoulder Gram Stain - Final 09/13/24 Unknown Tissue - Shoulder Wound Culture - Final Staphylococcus aureus 09/13/24 Unknown Tissue - Shoulder Anaerobic Culture - Preliminary Checking for anaerobes, further studies to follow. 09/11/24 Unknown Fluid - Synovial (joint) Gram Stain - Final 09/11/24 Unknown Fluid - Synovial (joint) Body Fluid Culture - Final Meth. resistant Staph. aureus 09/11/24 Unknown Fluid - Synovial (joint) Anaerobic Culture - Preliminary Checking for anaerobes, further studies to follow. 09/15/24 11:10 Mucosa - Nasopharyngeal Coronavirus COVID-19 PCR - Final 09/15/24 11:10 Mucosa - Nasopharyngeal Respiratory Panel (PCR) - Final 09/13/24 14:35 Blood Culture (Wb) - Left Wrist Blood Culture - Preliminary No growth in 48 hours.
--- NOTE | 2024-09-16 16:03 | PN.HOSP_ITS ---
Reason for Visit Reason for Visit: Diagnoses Depression, unspecified (09/14/24) Restless legs syndrome (09/14/24) Insomnia, unspecified (09/14/24) Polyneuropathy, unspecified (09/14/24) Essential (primary) hypertension (09/14/24) Infection and inflammatory reaction due to other internal joint prosthesis, initial encounter (09/14/24) Pain due to internal orthopedic prosthetic devices, implants and grafts, initial encounter (09/14/24) Encounter for other preprocedural examination (09/14/24) Presence of right artificial shoulder joint (09/14/24) Presence of left artificial shoulder joint (09/14/24) Subjective Subjective Patient was seen and examined today, she does not feel that she can go home by herself due to her left shoulder surgery, I talked with discharge planning about her care and the plan is either for her to go to a rehab facility or residential facility. Objective Data Objective Data Vital Signs: Vital Signs Temp Pulse Resp BP Pulse Ox O2 Del Method O2 Flow Rate 98.9 F 98 18 146/95 H 92 Room Air 2 09/16/24 14:00 09/16/24 14:00 09/16/24 14:00 09/16/24 14:00 09/16/24 15:08 09/16/24 15:08 09/16/24 14:49 Oxygen Flow Rate (L/min) 2 Oxygen Delivery Method Room Air Weight: 105.4 kg Body Mass Index (BMI) 36.3 Intake & Output: Intake and Output for Last 24 Hours 09/14/24 09/15/24 09/16/24 23:59 23:59 23:59 Intake Total 3834.17 / 3834.17 1411.25 / 1411.25 2099 Balance 3834.17 / 3834.17 1411. / 141.25 2099 Lab / Micro Data 09/16/24 06:00 09/16/24 06:00 Labs: Laboratory Results - last 24 hr 09/16/24 06:00: WBC 9.2, RBC 3.69 L, Hgb 11.0 L, Hct 35.3 L, MCV 95.7, MCH 29.8, MCHC 31.2 L, RDW Std Deviation 50.0 H, RDW Coeff of Terry 14.3, Plt Count 261, MPV 9.4, Immature Gran % (Auto) 0.900, Neut % (Auto) 76.9 H, Lymph % (Auto) 11.6 L, Mcclain % (Auto) 7.0, Eos % (Auto) 3.2, Baso % (Auto) 0.4, Absolute Neuts (auto) 7.1, Absolute Lymphs (auto) 1.07, Nucleated RBC % 0, Sodium 140, Potassium 4.8, Chloride 101, Carbon Dioxide 32.4 H, Anion Gap 7, BUN 24 H, Creatinine 0.93, Estim Creat Clear Calc 65.28, Est GFR (MDRD) Non-Af 64, BUN/Creatinine Ratio 25.4 H, Glucose 108 H, Calcium 8.9, Random Vancomycin 14.4 Micro: Microbiology 09/13/24 Unknown Tissue - Shoulder Gram Stain - Final 09/13/24 Unknown Tissue - Shoulder Wound Culture - Final Staphylococcus aureus 09/13/24 Unknown Tissue - Shoulder Anaerobic Culture - Preliminary Checking for anaerobes, further studies to follow. 09/13/24 Unknown Tissue - Shoulder Gram Stain - Final 09/13/24 Unknown Tissue - Shoulder Wound Culture - Final Staphylococcus aureus 09/13/24 Unknown Tissue - Shoulder Anaerobic Culture - Preliminary Checking for anaerobes, further studies to follow. 09/13/24 Unknown Tissue - Shoulder Gram Stain - Final 09/13/24 Unknown Tissue - Shoulder Wound Culture - Final Staphylococcus aureus 09/13/24 Unknown Tissue - Shoulder Anaerobic Culture - Preliminary Checking for anaerobes, further studies to follow. 09/11/24 Unknown Fluid - Synovial (joint) Gram Stain - Final 09/11/24 Unknown Fluid - Synovial (joint) Body Fluid Culture - Final Meth. resistant Staph. aureus 09/11/24 Unknown Fluid - Synovial (joint) Anaerobic Culture - Preliminary Checking for anaerobes, further studies to follow. 09/15/24 11:10 Mucosa - Nasopharyngeal Coronavirus COVID-19 PCR - Final 09/15/24 11:10 Mucosa - Nasopharyngeal Respiratory Panel (PCR) - Final 09/13/24 14:35 Blood Culture (Wb) - Left Wrist Blood Culture - Preliminary No growth in 48 hours. 09/12/24 08:19 Swab (Method) Nasal Screen MRSA/MSSA - Final Physical Exam Const alert, oriented x3 and no apparent distress General Appearance: cooperative, well kempt and well developed Orientation / Consciousness: awake, oriented to person, oriented to place and oriented to time HEENT normocephalic, head/scalp atraumatic and moist oral mucous membranes Eyes PERRL, EOMs intact bilaterally and conjunctivae normal Neck supple, no JVD, thyroid normal and no carotid bruits General: trachea midline Resp normal respiratory effort, no retractions, no use of accessory muscles and clear to auscultation bilaterally Auscultation: Negative for rales, rhonchi or wheezes Cardio regular rate, regular rhythm, S1 normal heart sound, S2 normal heart sound, no murmurs, no rub and no gallops GI normal to inspection, nondistended, normoactive bowel sounds, soft to palpation, non-tender and non-distended Extremity Extremity Narrative: Patient's left shoulder is in a shoulder immobilizer Skin no rashes or lesions noted Neuro oriented x3, CN's II-XII intact bilaterally, no focal motor deficits and no sensory deficits noted Neuro Narrative: Patient's left shoulder is in a shoulder immobilizer at this time Sensorium / Orientation: awake and alert Speech: speech normal Psych affect normal Assessment & Plan Assessment/Plan (1) Infection and inflammatory reaction due to other internal joint prosthesis, initial encounter: PLAN: Plan 1. Essential hypertension-patient will remain on her current medications they will be adjusted as necessary #2 chronic depression-patient is on BuSpar Cymbalta and Remeron #3 neuropathy-patient is currently on gabapentin #4 restless leg syndrome-patient is on Mirapex #5 postop day 3 irrigation debridement complete synovectomy revision left reverse total shoulder replacement revision-PT and OT will continue to work with the patient, infectious diseases is directing antibiotic coverage #6 infection and inflammatory reaction with joint prosthesis left shoulder- organisms include MSSA and MRSA-patient will be treated with vancomycin and rifampin Total clinical time spent by myself addressing the patient's medical issues, reviewing all of her data, and collaborating with patient's care team: 35 minutes Charges/Coding Visit Charges Inpatient E&M: 77830 Subs Hosp L2
[2024-09-16] MEDS: Pramipexole Di-HCl 0.5 MG Tablet PO (16:50)
[2024-09-16] MEDS: Ensure Surgery 237 ML LIQUID PO (16:51)
--- NOTE | 2024-09-16 17:49 | CASEMGMT ---
Social Work- SW met with pt and pt sister, Negro Daniels ([phone]) whom pt asked to have added to contacts. SW provided education on referral process. TCU acceptance pending based on pharmacy review of meds/cost. SW will follow up with family when referral determination made. SW printed additional SNF lists for family to review and discuss this evening for additional choices. Pt family will leave choices in pt room. SW remains available to follow. GREER Chacko
[2024-09-16] MEDS: Mirtazapine 15 MG Tablet PO (20:05)
[2024-09-16] MEDS: MELATONIN 10 MG TABLET PO (20:06)
[2024-09-16] MEDS: Gabapentin 600 MG Tablet PO (20:06)
[2024-09-16] MEDS: Pramipexole Di-HCl 1 MG Tablet PO (20:07)
--- NOTE | 2024-09-16 21:57 | PCM.HOSP.N ---
Hospitalist Note Patient with onset diarrhea, several episodes per staff. On abx therapy for several days with ID following. Suspect likely abx related but to be cautious will obtain cdiff and if negative will have loperamide PRN.
[2024-09-17] VITALS (7 sets, daily range): BP systolic 128–185; BP diastolic 64–99; PULSE 74–100; RESP 16–20; TEMP 36.4–36.9; O2SAT 93–96
[2024-09-17] MEDS: Acetaminophen 500 MG Tablet 1000 MG PO ×3 (06:55→21:49)
[2024-09-17] MEDS: Vancomycin IV 1,000 MG/200 ML BAG 200 MG IV (06:55)
[2024-09-17] MEDS: DULoxetine Hcl 30 MG Capsule PO (07:52)
[2024-09-17] MEDS: Famotidine 20 MG Tablet PO (07:52)
[2024-09-17] MEDS: Aspirin 81 MG TAB.CHEW PO ×2 (07:52→21:49)
[2024-09-17] MEDS: rifAMPin 300 MG Capsule PO ×2 (07:53→21:49)
[2024-09-17] MEDS: buPROPion (XL) 150 MG TABLET.XL PO (07:53)
[2024-09-17] MEDS: Ensure Surgery 237 ML LIQUID PO ×3 (07:55→18:06)
--- NOTE | 2024-09-17 10:03 | PN.ID_ITS ---
Physical Exam Narrative Feeling ok. One episode of diarrhea last night, one this AM. No fever, no abd pain, no blood in stool. H/o partial bowel resection so loose stool is common for her. 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 Taken to OR 09/13/[address] Cavanaugh for revision; surg cx x2 with MSSA. On vanc, will continue. Picc in place. Plan is for iv vanc and po rifampin for 6 weeks with stop date 10/25/24 with weekly labs. After that, will need long course suppressive po abx. Counseled her that her home meds may be less effective while on rifampin. Also risk of liver dysfunction and reviewed potential signs. ID followup in 2 weeks. Some diarrhea chronically, cdiff sent. Will follow, d/w dependency case manager
--- NOTE | 2024-09-17 10:44 | CASEMGMT ---
Addendum entered by Fanny Gong 09/17/24 13:27: ANSHU updated pt on approval and pending precert. ANSHU called pt sister, Negro, per pt request to provide updates as well. ANSHU received notification that precert has been approved, however, TCU is unable to admit pt until tomorrow. Fide PA notified. ANSHU remains available to follow. GREER Chacko Original Note: Social Work- [facility] and [facility]. ANSHU remains available to follow. Plan: TCU; precert pending GREER Chacko
--- NOTE | 2024-09-17 12:42 | PCM.PN.ORT ---
Subjective Subjective Patient appears to be comfortable in bedside chair. Patient states that she has been working with physical therapy. Patient did state that yesterday she did have 1 episode of diarrhea but that is not abnormal for her. She has been seen by Dr. Finch who does not think that this diarrhea is related to C. difficile. Patient did ask for Imodium yesterday so C. difficile protocol is in place. Patient states that she has not yet had a bowel movement today. Patient states that her pain is well-controlled. Patient states that she is not sure where she is going yet but she hopes that she is going to TCU. Patient denies any nausea or vomiting. Patient denies any dizziness or lightheadedness. Patient denies any new shortness of breath, chest pain, calf pain. Patient denies any fever, chills, signs of infection. Objective Data Objective Data Vital Signs: Vital Signs Temp Pulse Resp BP Pulse Ox O2 Del Method O2 Flow Rate 97.6 F L 100 20 H 185/99 H 95 Room Air 2 09/17/24 08:05 09/17/24 08:05 09/17/24 08:05 09/17/24 08:05 09/17/24 08:05 09/17/24 08:05 09/16/24 14:49 Oxygen Flow Rate (L/min) 2 Oxygen Delivery Method Room Air Weight: 105.4 kg Body Mass Index (BMI) 36.3 Intake & Output: Intake and Output for Last 24 Hours 09/15/24 09/16/24 09/17/24 23:59 23:59 23:59 Intake Total 1411.25 / 1411.25 2850 / 2850 200 / 200 Output Total 600 / 600 Balance 1411.25 / 1411.25 2850 / 2850 -400 / -400 Lab / Micro Data 09/16/24 06:00 09/16/24 06:00 Micro: Microbiology 09/13/24 Unknown Tissue - Shoulder Gram Stain - Final 09/13/24 Unknown Tissue - Shoulder Wound Culture - Final Staphylococcus aureus 09/13/24 Unknown Tissue - Shoulder Anaerobic Culture - Final No anaerobic bacteria isolated. 09/13/24 Unknown Tissue - Shoulder Gram Stain - Final 09/13/24 Unknown Tissue - Shoulder Wound Culture - Final Staphylococcus aureus 09/13/24 Unknown Tissue - Shoulder Anaerobic Culture - Final No anaerobic bacteria isolated. 09/13/24 Unknown Tissue - Shoulder Gram Stain - Final 09/13/24 Unknown Tissue - Shoulder Wound Culture - Final Staphylococcus aureus 09/13/24 Unknown Tissue - Shoulder Anaerobic Culture - Final No anaerobic bacteria isolated. 09/17/24 08:30 Stool Clostridioides difficile (PCR) - Final 09/11/24 Unknown Fluid - Synovial (joint) Gram Stain - Final 09/11/24 Unknown Fluid - Synovial (joint) Body Fluid Culture - Final Meth. resistant Staph. aureus 09/11/24 Unknown Fluid - Synovial (joint) Anaerobic Culture - Final No anaerobic bacteria isolated. 09/15/24 11:10 Mucosa - Nasopharyngeal Coronavirus COVID-19 PCR - Final 09/15/24 11:10 Mucosa - Nasopharyngeal Respiratory Panel (PCR) - Final 09/13/24 14:35 Blood Culture (Wb) - Left Wrist Blood Culture - Preliminary No growth in 48 hours. 09/12/24 08:19 Swab (Method) Nasal Screen MRSA/MSSA - Final Physical Exam Narrative Vital signs are stable and afebrile. Dressing is clean dry and intact. UltraSling has been appropriately fitted. Sensation intact to axillary, radial, median, ulnar distribution, Motor intact with patient able to make okay sign, cross fingers, thumbs up. ELEAZAR hose in place bilaterally. SCDs in place bilaterally. Const alert, oriented x3 and no apparent distress Assessment & Plan Assessment/Plan (1) Infection and inflammatory reaction due to other internal joint prosthesis, initial encounter: PLAN: Postop day 4 irrigation debridement, synovectomy and revision left shoulder replacement interchangeable parts 1. Pain control: Patient will be taking Tylenol and oxycodone for pain control. Patient will be taking oxycodone as needed. An OARRS was reviewed by myself today. The risk of abuse potential was discussed and reviewed. Patient was advised not to drive motor vehicle or operate heavy equipment while taking narcotic pain medication. 2. DVT prophylaxis: Aspirin 81 mg p.o. twice daily for 4 weeks postoperatively as well as ELEAZAR hose until 2 weeks postoperatively. 3. Physical therapy: PT OT work on ADLs and gentle range of motion exercises. Patient was educated on the reverse total shoulder protocol and educated to continue following. 4. Infectious disease: Infectious disease was able to see and evaluate the patient today. Have recommended vancomycin IV for 6 weeks. Patient will also be doing p.o. rifampin for 6 weeks. Patient does have a PICC line in place at this time. This will be stopped on 10/25/2024. 5. Hb/Hct: 11.0/35.3 from 09/16/2024. Currently asymptomatic and improving postoperatively. Vital signs are stable. Likely related to blood loss during surgery. 6. Medical management: Patient current chronic diseases are being managed by medicine. Appreciate recommendations from medicine for safe and proper discharge planning. 7. Hypoxia: Patient's hypoxia has seemed to resolved with patient now being 95% on room air. 8. Constipation: Patient did have an episode of diarrhea yesterday which she asked for Imodium for patient did have an episode of diarrhea yesterday which she asked for Imodium for and now patient is being followed by C. difficile guidelines. Dr. Joshua did not believe that this is related to C. difficile at this time. 9. Incentive spirometry: Patient was encouraged to do the incentive spirometer every hour that she is awake for the first week. 10. Patient is okay for discharge as long as remains medically stable, continues to work with physical therapy, and pain maintains adequately controlled. 11. Appreciate recommendations from both case management and medicine services for safe and proper discharge. Disposition: PICC line in place. Plan for 6 weeks IV vancomycin as well as 6 weeks of p.o. rifampin. Initial plans were for discharge home however, patient doing poorly with physical therapy and unable to manage IV antibiotics at home. We are still waiting on pre-CERT for potential patient placement. Appreciate recommendations from medicine and case management for safe discharge planning. Patient will follow-up per postoperative instructions. Reverse total shoulder protocol was reviewed with patient today. Patient has a 2-week follow-up at our office. Patient will begin outpatient physical therapy following her 2-week visit at our office. Patient was encouraged to call with any questions, concerns, new problems. (2) History of reverse total replacement of right shoulder joint:
--- NOTE | 2024-09-17 17:09 | PN.HOSP_ITS ---
Reason for Visit Reason for Visit: Diagnoses Depression, unspecified (09/14/24) Restless legs syndrome (09/14/24) Insomnia, unspecified (09/14/24) Polyneuropathy, unspecified (09/14/24) Essential (primary) hypertension (09/14/24) Infection and inflammatory reaction due to other internal joint prosthesis, initial encounter (09/14/24) Pain due to internal orthopedic prosthetic devices, implants and grafts, initial encounter (09/14/24) Encounter for other preprocedural examination (09/14/24) Presence of right artificial shoulder joint (09/14/24) Presence of left artificial shoulder joint (09/14/24) Subjective Subjective Patient was seen and examined today, there is a bed available for her in TCU for skilled care tomorrow. Patient had some gas pains today but otherwise has been doing well. Objective Data Objective Data Vital Signs: Vital Signs Temp Pulse Resp BP Pulse Ox O2 Del Method O2 Flow Rate 98.5 F 87 16 154/71 H 96 Room Air 2 09/17/24 15:07 09/17/24 15:07 09/17/24 15:07 09/17/24 15:07 09/17/24 15:07 09/17/24 15:07 09/16/24 14:49 Oxygen Flow Rate (L/min) 2 Oxygen Delivery Method Room Air Weight: 105.4 kg Body Mass Index (BMI) 36.3 Intake & Output: Intake and Output for Last 24 Hours 09/15/24 09/16/24 09/17/24 23:59 23:59 23:59 Intake Total 1411.25 / 1411.25 2850 / 2850 1400 / 1400 Output Total 600 / 600 Balance 1411.25 / 1411.25 2850 / 2850 800 / 800 Lab / Micro Data 09/16/24 06:00 09/16/24 06:00 Micro: Microbiology 09/13/24 Unknown Tissue - Shoulder Gram Stain - Final 09/13/24 Unknown Tissue - Shoulder Wound Culture - Final Staphylococcus aureus 09/13/24 Unknown Tissue - Shoulder Anaerobic Culture - Final No anaerobic bacteria isolated. 09/13/24 Unknown Tissue - Shoulder Gram Stain - Final 09/13/24 Unknown Tissue - Shoulder Wound Culture - Final Staphylococcus aureus 09/13/24 Unknown Tissue - Shoulder Anaerobic Culture - Final No anaerobic bacteria isolated. 09/13/24 Unknown Tissue - Shoulder Gram Stain - Final 09/13/24 Unknown Tissue - Shoulder Wound Culture - Final Staphylococcus aureus 09/13/24 Unknown Tissue - Shoulder Anaerobic Culture - Final No anaerobic bacteria isolated. 09/17/24 08:30 Stool Clostridioides difficile (PCR) - Final 09/11/24 Unknown Fluid - Synovial (joint) Gram Stain - Final 09/11/24 Unknown Fluid - Synovial (joint) Body Fluid Culture - Final Meth. resistant Staph. aureus 09/11/24 Unknown Fluid - Synovial (joint) Anaerobic Culture - Final No anaerobic bacteria isolated. 09/15/24 11:10 Mucosa - Nasopharyngeal Coronavirus COVID-19 PCR - Final 09/15/24 11:10 Mucosa - Nasopharyngeal Respiratory Panel (PCR) - Final 09/13/24 14:35 Blood Culture (Wb) - Left Wrist Blood Culture - Preliminary No growth in 48 hours. 09/12/24 08:19 Swab (Method) Nasal Screen MRSA/MSSA - Final Physical Exam Narrative alert, oriented x3 and no apparent distress General Appearance: cooperative, well kempt and well developed Orientation / Consciousness: awake, oriented to person, oriented to place and oriented to time HEENT normocephalic, head/scalp atraumatic and moist oral mucous membranes Eyes PERRL, EOMs intact bilaterally and conjunctivae normal Neck supple, no JVD, thyroid normal and no carotid bruits General: trachea midline Resp normal respiratory effort, no retractions, no use of accessory muscles and clear to auscultation bilaterally Auscultation: Negative for rales, rhonchi or wheezes Cardio regular rate, regular rhythm, S1 normal heart sound, S2 normal heart sound, no murmurs, no rub and no gallops GI normal to inspection, nondistended, normoactive bowel sounds, soft to palpation, non-tender and non-distended Extremity Extremity Narrative: Patient's left shoulder is in a shoulder immobilizer Skin no rashes or lesions noted Neuro oriented x3, CN's II-XII intact bilaterally, no focal motor deficits and no sensory deficits noted Neuro Narrative: Patient's left shoulder is in a shoulder immobilizer at this time Sensorium / Orientation: awake and alert Speech: speech normal Psych affect normal Assessment & Plan Assessment/Plan (1) History of reverse total replacement of right shoulder joint: (2) Infection and inflammatory reaction due to other internal joint prosthesis, initial encounter: PLAN: Plan 1. Essential hypertension-patient's blood pressure was high today, I made the decision to add metoprolol to her present blood pressure medications. #2 chronic depression-patient is on BuSpar Cymbalta and Remeron #3 neuropathy-patient is currently on gabapentin #4 restless leg syndrome-patient is on Mirapex #5 postop day 4 irrigation debridement complete synovectomy revision left reverse total shoulder replacement revision-PT and OT will continue to work with the patient, infectious diseases is directing antibiotic coverage #6 infection and inflammatory reaction with joint prosthesis left shoulder- organisms include MSSA and MRSA-patient will be treated with vancomycin and rifampin #7 chronic diarrhea-patient had diarrhea yesterday and a C. difficile test was sent which was negative. Patient has had a bowel resection in the past and intermittently does have diarrhea according to the patient. Total clinical time spent by myself addressing the patient's medical issues, reviewing all of her data, and collaborating with patient's care team: 35 minutes Charges/Coding Visit Charges Inpatient E&M: 39940 Subs Hosp L2
--- NOTE | 2024-09-17 17:13 | PCM.TXEXTCAR ---
Diet Diet Order/Speech Therapy: 09/13/24 19:52 Diet: Regular - General Routine Orders/Code Status Routine Lab Work: CBC (Weekly starting 09/23/24) and - (CMP weekly starting 09/23/2024) Code Status: DNRCC-A (No intubation) DC O2, CPAP, BIPAP needs Home O2 Discharge instructions: No Wound(s) LEFT SHOULDER: Wound Type: Surgical Incision Therapies Weight Bearing: Full weight bearing Physical Therapy: Eval and Treat Occupational Therapy: Eval and Treat Problem/Diagnosis (1) History of reverse total replacement of right shoulder joint: Status: Acute Code(s): Z96.611 - Presence of right artificial shoulder joint (2) Infection and inflammatory reaction due to other internal joint prosthesis, initial encounter: Status: Acute Code(s): T84.59XA - Infection and inflammatory reaction due to other internal joint prosthesis, initial encounter Plan 1. Essential hypertension-patient's blood pressure was high today, I made the decision to add metoprolol to her present blood pressure medications. #2 chronic depression-patient is on BuSpar Cymbalta and Remeron #3 neuropathy-patient is currently on gabapentin #4 restless leg syndrome-patient is on Mirapex #5 postop day 4 irrigation debridement complete synovectomy revision left reverse total shoulder replacement revision-PT and OT will continue to work with the patient, infectious diseases is directing antibiotic coverage #6 infection and inflammatory reaction with joint prosthesis left shoulder-organisms include MSSA and MRSA-patient will be treated with vancomycin and rifampin #7 chronic diarrhea-patient had diarrhea yesterday and a C. difficile test was sent which was negative. Patient has had a bowel resection in the past and intermittently does have diarrhea according to the patient. Total clinical time spent by myself addressing the patient's medical issues, reviewing all of her data, and collaborating with patient's care team: 35 minutes Allergies/Procedures Done in Hospital Allergies Penicillins Allergy (Verified 09/13/24 12:05) Anaphylaxis Procedures: PICC line placement and - (Irrigation debridement complete synovectomy revision left reverse total shoulder replacement revision-09/13/2024) Type of Care/Length of Stay Estimated LOS: Convalescent Care Less Than 30 days Type of Care Needed: Skilled Rehab Potential: Good Prognosis: Good Additional Orders/Day of Discharge H&P will serve as current which was dated: 09/11/24 Day of Discharge: 09/18/24 Discharge Plan Admission Admit Date/Time: 09/14/24 12:40 Primary Reason for Your Visit: Left shoulder periprosthetic joint infection Attending Provider: Fahad Cavanaugh Primary Care Provider: Kamar Grimes Consulting Providers: Emili Lee; Jamie Jiang; Tru Andrade Instructions Patient Instructions: PICC, PICC Change Dressing Dc, Caring for Your PICC Dc, PICC Line Flushing Home Ch, Flushing Your PICC Line at Home, ED PICC Line Care Additional Instructions / Restrictions: Wear shoulder immobilizer at all times Discharge Orders/Prescriptions Prescriptions: New vancomycin in dextrose 5 % 1 gram/200 mL Piggyback 1,000 mg IV Q24H 39 Days Qty: 3900 0RF Rx Instructions: stop date 10/25/24. Dx: shoulder PJI. weekly bmp, cbc, vanc trough, and esr. Fax to [phone]. Routine picc care per protocol. rifampin 300 mg Capsule 300 mg PO BID 39 Days Qty: 78 0RF loperamide 2 mg Capsule 2 mg PO Q2H PRN PRN (Reason: DIARRHEA) Qty: 0 0RF acetaminophen 500 mg Tablet 1,000 mg PO Q8 Qty: 1 0RF famotidine 20 mg Tablet 20 mg PO DAILY Qty: 0 0RF aspirin 81 mg Tablet,Chewable 81 mg PO BID Qty: 0 0RF oxycodone 5 mg Tablet 5 - 10 mg PO Q4H PRN PRN (Reason: Pain Score 4-10) 2 Days Qty: 10 0RF metoprolol tartrate 25 mg Tablet 25 mg PO BID Qty: 0 0RF sennosides-docusate sodium [Stimulant Laxative Plus] 8.6-50 mg Tablet 1 tab PO DAILY Qty: 0 0RF simethicone [Infants Simethicone] 40 mg/0.6 mL Drops,Suspension 80 mg PO TID PRN (Reason: Gas) Qty: 0 0RF Continued losartan 50 MG tablet 50 mg PO BID Patient Comments: BLOOD PRESSURE melatonin 5 MG tablet 10 mg PO QHS Patient Comments: SLEEP pramipexole [Mirapex] 0.5 MG tablet 1 mg PO QHS Patient Comments: RESTLESS LEGS indapamide 1.25 MG tablet 2.5 mg PO DAILY gabapentin 600 MG tablet 600 mg PO QHS bupropion HCl 300 MG tablet extended release 24 hr 150 mg PO DAILY mirtazapine 15 MG tablet 15 mg PO QHS pramipexole 0.5 mg tablet 0.5 mg PO DINNER amlodipine 10 mg tablet 5 mg PO BID duloxetine [Cymbalta] 30 mg capsule,delayed release(DR/EC) 30 mg PO DAILY Referrals / Follow Up: Kamar Grimes MD [Primary Care Provider] - Tru Andrade MD [Med Staff - Active Staff] - See Referral Note (In 2 weeks-call for an appointment) Fahad Cavanaugh MD [Med Staff - Active Staff] - See Referral Note (In 2 weeks, call for an appointment) Disposition Disposition (needs filled in before D/C Order can be placed): Senior Living Facility
[2024-09-17] MEDS: Pramipexole Di-HCl 0.5 MG Tablet PO (18:05)
[2024-09-17] MEDS: Pramipexole Di-HCl 1 MG Tablet PO (21:48)
[2024-09-17] MEDS: Metoprolol Tartrate 25 MG Tablet PO (21:49)
[2024-09-17] MEDS: Mirtazapine 15 MG Tablet PO (21:49)
[2024-09-17] MEDS: Gabapentin 600 MG Tablet PO (21:49)
[2024-09-17] MEDS: MELATONIN 10 MG TABLET PO (21:49)
[2024-09-17] MEDS: oxyCODONE 5 MG Tablet PO (21:50)
[2024-09-18 02:30] VITALS: BP 145/67; PULSE 78; RESP 16; TEMP 36.8; O2SAT 94
[2024-09-18] MEDS: Acetaminophen 500 MG Tablet 1000 MG PO (05:51)
[2024-09-18] MEDS: Loperamide 2 MG Capsule PO (05:51)
[2024-09-18] MEDS: oxyCODONE 5 MG Tablet PO (05:51)
[2024-09-18 07:20] VITALS: BP 160/87; PULSE 83; RESP 14; TEMP 36.5; O2SAT 90
[2024-09-18 07:25] VITALS: PULSE 83; RESP 14; O2SAT 90
[2024-09-18 07:32] LABS: Vancomycin, Trough Level 10.7 ug/mL (5.0-15.0)
--- NOTE | 2024-09-18 07:44 | PCM.RX.CS ---
Consult Antibiotic Management Pharmacy has been consulted to manage selected antibiotic: Vancomycin Type of Intervention Type of Consult: Follow-up Suspected Infection Suspected Infection: Skin/Soft tissue Prior Doses of Antibiotics Prior Doses of Antibiotics Received/Current Regimen: 09/17/24 @ 0655 Labs Labs: Sodium 140 mmol/L (133-145) 09/16/24 06:00 Potassium 4.8 mmol/L (3.3-5.1) 09/16/24 06:00 Chloride 101 mmol/L (98-108) 09/16/24 06:00 Carbon Dioxide 32.4 mmol/L (21.0-32.0) H 09/16/24 06:00 Anion Gap 7 (5-15) 09/16/24 06:00 BUN 24 mg/dL (4-19) H 09/16/24 06:00 Creatinine 0.93 mg/dL (0.70-1.20) 09/16/24 06:00 Est GFR (MDRD) Non-Af 64 (>60) 09/16/24 06:00 BUN/Creatinine Ratio 25.4 RATIO (10-20) H 09/16/24 06:00 Glucose 108 mg/dL (70-99) H 09/16/24 06:00 Vancomycin Trough 10.7 ug/mL (5.0-15.0) 09/18/24 06:30 Random Vancomycin 14.4 ug/mL (0.0-15.0) 09/16/24 06:00 Microbiology Microbiology: Microbiology 09/13/24 Unknown Tissue - Shoulder Gram Stain - Final 09/13/24 Unknown Tissue - Shoulder Wound Culture - Final Staphylococcus aureus 09/13/24 Unknown Tissue - Shoulder Anaerobic Culture - Final No anaerobic bacteria isolated. 09/13/24 Unknown Tissue - Shoulder Gram Stain - Final 09/13/24 Unknown Tissue - Shoulder Wound Culture - Final Staphylococcus aureus 09/13/24 Unknown Tissue - Shoulder Anaerobic Culture - Final No anaerobic bacteria isolated. 09/13/24 Unknown Tissue - Shoulder Gram Stain - Final 09/13/24 Unknown Tissue - Shoulder Wound Culture - Final Staphylococcus aureus 09/13/24 Unknown Tissue - Shoulder Anaerobic Culture - Final No anaerobic bacteria isolated. 09/17/24 08:30 Stool Clostridioides difficile (PCR) - Final 09/11/24 Unknown Fluid - Synovial (joint) Gram Stain - Final 09/11/24 Unknown Fluid - Synovial (joint) Body Fluid Culture - Final Meth. resistant Staph. aureus 09/11/24 Unknown Fluid - Synovial (joint) Anaerobic Culture - Final No anaerobic bacteria isolated. 09/15/24 11:10 Mucosa - Nasopharyngeal Coronavirus COVID-19 PCR - Final 09/15/24 11:10 Mucosa - Nasopharyngeal Respiratory Panel (PCR) - Final 09/13/24 14:35 Blood Culture (Wb) - Left Wrist Blood Culture - Preliminary No growth in 48 hours. 09/12/24 08:19 Swab (Method) Nasal Screen MRSA/MSSA - Final Dosing Weight Weight used for dosin kg Estimated Creatinine Clearance Estimated Creatinine Clearance: 65 Goal Trough Goal Trough: 10-15 mcg/mL Pharmacy Plan for Drug Dosing Pharmacy Plan for Drug Dosing: Continue Vancomycin 1000mg every 24 hours. Pharmacy Service will continue to monitor and adjust dosing as required. Follow-Up Labs Follow-Up Labs: Trough: Vancomycin Date/Time Labs Ordered Labs to be done on [date and time ordered]: 09/20/24 @ 0700
--- NOTE | 2024-09-18 07:48 | PN.ORTHO_ITS ---
Subjective Subjective Patient was lying comfortably in bed. Patient was very excited that she got accepted to [facility] TCU and patient was eager to get out of here. Patient states that she has been working with physical therapy and Occupational Therapy and things have been going well. Patient was C. difficile negative. Patient states that her pain is adequately controlled. Patient was educated that due to today being postop day 5 she is able to take her dressing off later this afternoon. Patient denies any nausea, vomiting, dizziness, lightheadedness. Patient denies any shortness of breath, chest pain, calf pain. Patient denies any fever, chills, signs of infection. Patient denies any adverse events overnight. Objective Data Objective Data Vital Signs: Vital Signs Temp Pulse Resp BP Pulse Ox O2 Del Method O2 Flow Rate 98.2 F 78 16 145/67 H 94 Room Air 2 09/18/24 02:30 09/18/24 02:30 09/18/24 02:30 09/18/24 02:30 09/18/24 02:30 09/18/24 07:47 09/16/24 14:49 Oxygen Flow Rate (L/min) 2 Oxygen Delivery Method Room Air Weight: 105.4 kg Body Mass Index (BMI) 36.3 Intake & Output: Intake and Output for Last 24 Hours 09/16/24 09/17/24 09/18/24 23:59 23:59 23:59 Intake Total 2850 / 2850 1400 / 1400 Output Total 600 / 600 Balance 2850 / 2850 800 / 800 Lab / Micro Data 09/16/24 06:00 09/16/24 06:00 Labs: Laboratory Results - last 24 hr 09/18/24 06:30: Vancomycin Trough 10.7 Micro: Microbiology 09/13/24 Unknown Tissue - Shoulder Gram Stain - Final 09/13/24 Unknown Tissue - Shoulder Wound Culture - Final Staphylococcus aureus 09/13/24 Unknown Tissue - Shoulder Anaerobic Culture - Final No anaerobic bacteria isolated. 09/13/24 Unknown Tissue - Shoulder Gram Stain - Final 09/13/24 Unknown Tissue - Shoulder Wound Culture - Final Staphylococcus aureus 09/13/24 Unknown Tissue - Shoulder Anaerobic Culture - Final No anaerobic bacteria isolated. 09/13/24 Unknown Tissue - Shoulder Gram Stain - Final 09/13/24 Unknown Tissue - Shoulder Wound Culture - Final Staphylococcus aureus 09/13/24 Unknown Tissue - Shoulder Anaerobic Culture - Final No anaerobic bacteria isolated. 09/17/24 08:30 Stool Clostridioides difficile (PCR) - Final 09/11/24 Unknown Fluid - Synovial (joint) Gram Stain - Final 09/11/24 Unknown Fluid - Synovial (joint) Body Fluid Culture - Final Meth. resistant Staph. aureus 09/11/24 Unknown Fluid - Synovial (joint) Anaerobic Culture - Final No anaerobic bacteria isolated. 09/15/24 11:10 Mucosa - Nasopharyngeal Coronavirus COVID-19 PCR - Final 09/15/24 11:10 Mucosa - Nasopharyngeal Respiratory Panel (PCR) - Final 09/13/24 14:35 Blood Culture (Wb) - Left Wrist Blood Culture - Preliminary No growth in 48 hours. 09/12/24 08:19 Swab (Method) Nasal Screen MRSA/MSSA - Final Physical Exam Narrative Vital signs are stable and afebrile. Dressing is clean dry and intact. UltraSling has been appropriately fitted. Sensation intact to axillary, radial, median, ulnar distribution, Motor intact with patient able to make okay sign, cross fingers, thumbs up. ELEAZAR hose in place bilaterally. SCDs in place bilaterally. Const alert, oriented x3 and no apparent distress Assessment & Plan Assessment/Plan (1) History of reverse total replacement of right shoulder joint: PLAN: Postop day 5 irrigation debridement, synovectomy and revision left shoulder replacement interchangeable parts 1. Pain control: Patient will be taking Tylenol and oxycodone for pain control. Patient will be taking oxycodone as needed. An OARRS was reviewed by myself today. The risk of abuse potential was discussed and reviewed. Patient was advised not to drive motor vehicle or operate heavy equipment while taking narcotic pain medication. 2. DVT prophylaxis: Aspirin 81 mg p.o. twice daily for 4 weeks postoperatively as well as ELEAZAR hose until 2 weeks postoperatively. 3. Physical therapy: PT OT work on ADLs and gentle range of motion exercises. Patient was educated on the reverse total shoulder protocol and educated to continue following. 4. Infectious disease: Infectious disease was able to see and evaluate the patient today. Have recommended vancomycin IV for 6 weeks. Patient will also be doing p.o. rifampin for 6 weeks. Patient does have a PICC line in place at this time. This will be stopped on 10/25/2024. 5. Hb/Hct: 11.0/35.3 from 09/16/2024. Currently asymptomatic and improving postoperatively. Vital signs are stable. Likely related to blood loss during surgery. 6. Medical management: Patient current chronic diseases are being managed by medicine. Appreciate recommendations from medicine for safe and proper discharge planning. 7. Hypoxia: Patient's hypoxia has seemed to resolved with patient now being 95% on room air. 8. Constipation: Patient did have an episode of diarrhea yesterday which she asked for Imodium for patient did have an episode of diarrhea yesterday which she asked for Imodium for and now patient is being followed by C. difficile guidelines. Dr. Joshua did not believe that this is related to C. difficile at this time. Patient is negative for C. difficile at this time. 9. Incentive spirometry: Patient was encouraged to do the incentive spirometer every hour that she is awake for the first week. 10. Due to being postop day 5 patient is able to remove dressing at this time. If incision looks clean dry and intact patient can open to air. Patient can do gentle soap and water in the shower. Patient was educated not to do any soaking, submerging until 6 weeks. Patient was educated not to do any lotions, salves, oils for 6 weeks. 10. Patient is okay for discharge as long as remains medically stable, continues to work with physical therapy, and pain maintains adequately controlled. 11. Appreciate recommendations from both case management and medicine services for safe and proper discharge. Disposition: PICC line in place. Plan for 6 weeks IV vancomycin as well as 6 weeks of p.o. rifampin. Initial plans were for discharge home however, patient doing poorly with physical therapy and unable to manage IV antibiotics at home. Patient will be going to the TCU at [facility]. Patient received acceptance yesterday but a bed was not available until today 09/18/2024. Appreciate recommendations from medicine and case management for safe discharge planning. Patient will follow-up per postoperative instructions. Reverse total shoulder protocol was reviewed with patient today. Patient has a 2-week follow-up at our office. Patient will begin outpatient physical therapy following her 2-week visit at our office. Patient was encouraged to call with any questions, concerns, new problems. (2) Infection and inflammatory reaction due to other internal joint prosthesis, initial encounter:
[2024-09-18 08:25] VITALS: PULSE 87
[2024-09-18] MEDS: Famotidine 20 MG Tablet PO (08:25)
[2024-09-18] MEDS: Metoprolol Tartrate 25 MG Tablet PO (08:25)
[2024-09-18] MEDS: buPROPion (XL) 150 MG TABLET.XL PO (08:25)
[2024-09-18] MEDS: DULoxetine Hcl 30 MG Capsule PO (08:25)
[2024-09-18] MEDS: Aspirin 81 MG TAB.CHEW PO (08:25)
[2024-09-18] MEDS: Ensure Surgery 237 ML LIQUID PO (08:26)
[2024-09-18] MEDS: rifAMPin 300 MG Capsule PO (08:26)
[2024-09-18] MEDS: 0.9% Saline Lock 10 ML Syringe IV (08:29)
[2024-09-18] MEDS: Vancomycin IV 1,000 MG/200 ML BAG 200 MG IV (08:29)
--- NOTE | 2024-09-18 09:08 | PCM.PN.HOSP ---
Reason for Visit Reason for Visit: Diagnoses Depression, unspecified (09/14/24) Restless legs syndrome (09/14/24) Insomnia, unspecified (09/14/24) Polyneuropathy, unspecified (09/14/24) Essential (primary) hypertension (09/14/24) Infection and inflammatory reaction due to other internal joint prosthesis, initial encounter (09/14/24) Pain due to internal orthopedic prosthetic devices, implants and grafts, initial encounter (09/14/24) Encounter for other preprocedural examination (09/14/24) Presence of right artificial shoulder joint (09/14/24) Presence of left artificial shoulder joint (09/14/24) Subjective Subjective Patient was seen and examined today, she has been accepted to TCU for inpatient skilled services. Patient has no complaints today of severe shoulder pain. I talked briefly to orthopedic surgery about her care today. Objective Data Objective Data Vital Signs: Vital Signs Temp Pulse Resp BP Pulse Ox O2 Del Method O2 Flow Rate 97.7 F L 87 14 160/87 H 90 Room Air 2 09/18/24 07:20 09/18/24 08:25 09/18/24 07:25 09/18/24 07:20 09/18/24 07:25 09/18/24 08:30 09/16/24 14:49 Oxygen Flow Rate (L/min) 2 Oxygen Delivery Method Room Air Weight: 105.4 kg Body Mass Index (BMI) 36.3 Intake & Output: Intake and Output for Last 24 Hours 09/16/24 09/17/24 09/18/24 23:59 23:59 23:59 Intake Total 2850 / 2850 1400 / 1400 Output Total 600 / 600 Balance 2850 / 2850 800 / 800 Lab / Micro Data 09/16/24 06:00 09/16/24 06:00 Labs: Laboratory Results - last 24 hr 09/18/24 06:30: Vancomycin Trough 10.7 Micro: Microbiology 09/13/24 Unknown Tissue - Shoulder Gram Stain - Final 09/13/24 Unknown Tissue - Shoulder Wound Culture - Final Staphylococcus aureus 09/13/24 Unknown Tissue - Shoulder Anaerobic Culture - Final No anaerobic bacteria isolated. 09/13/24 Unknown Tissue - Shoulder Gram Stain - Final 09/13/24 Unknown Tissue - Shoulder Wound Culture - Final Staphylococcus aureus 09/13/24 Unknown Tissue - Shoulder Anaerobic Culture - Final No anaerobic bacteria isolated. 09/13/24 Unknown Tissue - Shoulder Gram Stain - Final 09/13/24 Unknown Tissue - Shoulder Wound Culture - Final Staphylococcus aureus 09/13/24 Unknown Tissue - Shoulder Anaerobic Culture - Final No anaerobic bacteria isolated. 09/17/24 08:30 Stool Clostridioides difficile (PCR) - Final 09/11/24 Unknown Fluid - Synovial (joint) Gram Stain - Final 09/11/24 Unknown Fluid - Synovial (joint) Body Fluid Culture - Final Meth. resistant Staph. aureus 09/11/24 Unknown Fluid - Synovial (joint) Anaerobic Culture - Final No anaerobic bacteria isolated. 09/15/24 11:10 Mucosa - Nasopharyngeal Coronavirus COVID-19 PCR - Final 09/15/24 11:10 Mucosa - Nasopharyngeal Respiratory Panel (PCR) - Final 09/13/24 14:35 Blood Culture (Wb) - Left Wrist Blood Culture - Preliminary No growth in 48 hours. 09/12/24 08:19 Swab (Method) Nasal Screen MRSA/MSSA - Final Physical Exam Narrative alert, oriented x3 and no apparent distress General Appearance: cooperative, well kempt and well developed Orientation / Consciousness: awake, oriented to person, oriented to place and oriented to time HEENT normocephalic, head/scalp atraumatic and moist oral mucous membranes Eyes PERRL, EOMs intact bilaterally and conjunctivae normal Neck supple, no JVD, thyroid normal and no carotid bruits General: trachea midline Resp normal respiratory effort, no retractions, no use of accessory muscles and clear to auscultation bilaterally Auscultation: Negative for rales, rhonchi or wheezes Cardio regular rate, regular rhythm, S1 normal heart sound, S2 normal heart sound, no murmurs, no rub and no gallops GI normal to inspection, nondistended, normoactive bowel sounds, soft to palpation, non-tender and non-distended Extremity Extremity Narrative: Patient's left shoulder is in a shoulder immobilizer Skin no rashes or lesions noted Neuro oriented x3, CN's II-XII intact bilaterally, no focal motor deficits and no sensory deficits noted Neuro Narrative: Patient's left shoulder is in a shoulder immobilizer at this time Sensorium / Orientation: awake and alert Speech: speech normal Psych affect normal Assessment & Plan Assessment/Plan (1) Infection and inflammatory reaction due to other internal joint prosthesis, initial encounter: (2) History of reverse total replacement of right shoulder joint: PLAN: Plan 1. Essential hypertension-patient will remain on her present medications at the transitional care unit, blood pressure medicines may need to be adjusted #2 chronic depression-patient is on BuSpar Cymbalta and Remeron #3 neuropathy-patient is currently on gabapentin #4 restless leg syndrome-patient is on Mirapex #5 postop day 4 irrigation debridement complete synovectomy revision left reverse total shoulder replacement revision-PT and OT will continue to work with the patient, infectious diseases is directing antibiotic coverage #6 infection and inflammatory reaction with joint prosthesis left shoulder-organisms include MSSA and MRSA-patient will be treated with vancomycin and rifampin #7 chronic diarrhea-patient has no complaints of diarrhea today Total clinical time spent by myself addressing the patient's medical issues, reviewing all of her data, and collaborating with patient's care team: 50 minutes Charges/Coding Visit Charges Inpatient E&M: 26335 [facility] L3
--- NOTE | 2024-09-18 10:09 | PHA.DC_ITS ---
Pharmacy [facility] Reconciliation Pharmacy Service has performed discharge medication reconciliation for this patient. The patient's discharge medication list was reviewed for discrepancies and discrepancies were resolved. Medications at Discharge Home Medications losartan 50 mg tablet 50 mg PO BID BP 09/19/14 melatonin 5 mg tablet 10 mg PO QHS INSOMNIA 09/19/14 indapamide 1.25 mg tablet 2.5 mg PO DAILY BP 04/12/17 pramipexole 0.5 mg tablet (Mirapex) 1 mg PO QHS RLS 04/12/17 bupropion HCl 300 mg 24 hr tablet, extended release 150 mg PO DAILY DEPRESSION 06/11/20 gabapentin 600 mg tablet 600 mg PO QHS SLEEP 06/11/20 mirtazapine 15 mg tablet 15 mg PO QHS INSOMNIA 06/24/20 amlodipine 10 mg tablet 5 mg PO BID BP 09/11/24 duloxetine 30 mg capsule,delayed release (Cymbalta) 30 mg PO DAILY DEPRESSION 09/11/24 pramipexole 0.5 mg tablet 0.5 mg PO DINNER RLS 09/11/24 rifampin 300 mg capsule 300 mg PO BID 39 days #78 caps 09/16/24 vancomycin 1 gram/200 mL in dextrose 5 % intravenous piggyback 1,000 mg IV Q24H 39 days #3,900 mL 09/16/24 acetaminophen 500 mg tablet 1,000 mg (2 x 500 mg) PO Q8 #1 TAB 09/17/24 aspirin 81 mg chewable tablet 81 mg PO BID #0 tabs 09/17/24 famotidine 20 mg tablet 20 mg PO DAILY #0 tabs 09/17/24 loperamide 2 mg capsule 2 mg PO Q2H PRN PRN DIARRHEA #0 caps 09/17/24 metoprolol tartrate 25 mg tablet 25 mg PO BID #0 tabs 09/17/24 oxycodone 5 mg tablet 5 - 10 mg (1 - 2 x 5 mg) PO Q4H PRN PRN Pain Score 4-10 2 days #10 tabs 09/17/24 sennosides 8.6 mg-docusate sodium 50 mg tablet (Stimulant Laxative Plus) 1 tab PO DAILY #0 tabs 09/17/24 simethicone 40 mg/0.6 mL oral drops,suspension (Infants Simethicone) 80 mg (1.2 mL) PO TID PRN Gas #0 mL 09/17/24
--- NOTE | 2024-09-18 10:48 | CASEMGMT ---
Social Work TCU is able to accept pt today and physician states pt is ready for discharge. Precert has been obtained. SW met with pt and informed that TCU has accepted and pt to dc today. Pt agreeable and denies SW calling family as pt states she has notified them. Discharge orders faxed to TCU and Dara in TCU notified of dc today. Disposition: TCU, skilled level of care [facility]
--- NOTE | 2024-09-18 12:55 | DS.PCM_ITS ---
Providers Date of Admission: 09/14/24 Primary Care Physician: Dr. Kamar Grimes MD Consultations 09/13/24 16:15 Consult: Hospitalist Routine Consulting Provider: [facility] Reason for Consult: post op med management EMERGENT Consult: No Notified: Yes Date Notified: 09/13/24 Time Notified: 19:20 Method of Notification: Verbal 09/16/24 09:40 Consult: Infectious Disease Routine Consulting Provider: Tru Andrade Reason for Consult: left TSH PJI EMERGENT Consult: No Notified: Yes Date Notified: 09/16/24 Time Notified: 09:40 Method of Notification: Verbal Reason For Visit: Pre-Surgical Testing Diagnosis Discharge Diagnosis (1) Infection and inflammatory reaction due to other internal joint prosthesis, initial encounter: Status: Acute Code(s): T84.59XA - Infection and inflammatory reaction due to other internal joint prosthesis, initial encounter (2) History of reverse total replacement of right shoulder joint: Status: Acute Code(s): Z96.611 - Presence of right artificial shoulder joint Plan: Postop day 5 irrigation debridement, synovectomy and revision left shoulder replacement interchangeable parts 1. Pain control: Patient will be taking Tylenol and oxycodone for pain control. Patient will be taking oxycodone as needed. An OARRS was reviewed by myself today. The risk of abuse potential was discussed and reviewed. Patient was advised not to drive motor vehicle or operate heavy equipment while taking narcotic pain medication. 2. DVT prophylaxis: Aspirin 81 mg p.o. twice daily for 4 weeks postoperatively as well as ELEAZAR hose until 2 weeks postoperatively. 3. Physical therapy: PT OT work on ADLs and gentle range of motion exercises. Patient was educated on the reverse total shoulder protocol and educated to continue following. 4. Infectious disease: Infectious disease was able to see and evaluate the patient today. Have recommended vancomycin IV for 6 weeks. Patient will also be doing p.o. rifampin for 6 weeks. Patient does have a PICC line in place at this time. This will be stopped on 10/25/2024. 5. Hb/Hct: 11.0/35.3 from 09/16/2024. Currently asymptomatic and improving postoperatively. Vital signs are stable. Likely related to blood loss during surgery. 6. Medical management: Patient current chronic diseases are being managed by medicine. Appreciate recommendations from medicine for safe and proper discharge planning. 7. Hypoxia: Patient's hypoxia has seemed to resolved with patient now being 95% on room air. 8. Constipation: Patient did have an episode of diarrhea yesterday which she asked for Imodium for patient did have an episode of diarrhea yesterday which she asked for Imodium for and now patient is being followed by C. difficile guidelines. Dr. Joshua did not believe that this is related to C. difficile at this time. Patient is negative for C. difficile at this time. 9. Incentive spirometry: Patient was encouraged to do the incentive spirometer every hour that she is awake for the first week. 10. Due to being postop day 5 patient is able to remove dressing at this time. If incision looks clean dry and intact patient can open to air. Patient can do gentle soap and water in the shower. Patient was educated not to do any soaking, submerging until 6 weeks. Patient was educated not to do any lotions, salves, oils for 6 weeks. 10. Patient is okay for discharge as long as remains medically stable, continues to work with physical therapy, and pain maintains adequately controlled. 11. Appreciate recommendations from both case management and medicine services for safe and proper discharge. Disposition: PICC line in place. Plan for 6 weeks IV vancomycin as well as 6 weeks of p.o. rifampin. Initial plans were for discharge home however, patient doing poorly with physical therapy and unable to manage IV antibiotics at home. Patient will be going to the TCU at [facility]. Patient received acceptance yesterday but a bed was not available until today 09/18/2024. Appreciate recommendations from medicine and case management for safe discharge planning. Patient will follow-up per postoperative instructions. Reverse total shoulder protocol was reviewed with patient today. Patient has a 2-week follow-up at our office. Patient will begin outpatient physical therapy following her 2-week visit at our office. Patient was encouraged to call with any questions, concerns, new problems. Medications at Discharge Home Medications losartan 50 mg tablet 50 mg PO BID BP 09/19/14 melatonin 5 mg tablet 10 mg PO QHS INSOMNIA 09/19/14 indapamide 1.25 mg tablet 2.5 mg PO DAILY BP 04/12/17 pramipexole 0.5 mg tablet (Mirapex) 1 mg PO QHS RLS 04/12/17 bupropion HCl 300 mg 24 hr tablet, extended release 150 mg PO DAILY DEPRESSION 06/11/20 gabapentin 600 mg tablet 600 mg PO QHS SLEEP 06/11/20 mirtazapine 15 mg tablet 15 mg PO QHS INSOMNIA 06/24/20 amlodipine 10 mg tablet 5 mg PO BID BP 09/11/24 duloxetine 30 mg capsule,delayed release (Cymbalta) 30 mg PO DAILY DEPRESSION 09/11/24 pramipexole 0.5 mg tablet 0.5 mg PO DINNER RLS 09/11/24 rifampin 300 mg capsule 300 mg PO BID 39 days #78 caps 09/16/24 vancomycin 1 gram/200 mL in dextrose 5 % intravenous piggyback 1,000 mg IV Q24H 39 days #3,900 mL 09/16/24 acetaminophen 500 mg tablet 1,000 mg (2 x 500 mg) PO Q8 #1 TAB 09/17/24 aspirin 81 mg chewable tablet 81 mg PO BID #0 tabs 09/17/24 famotidine 20 mg tablet 20 mg PO DAILY #0 tabs 09/17/24 loperamide 2 mg capsule 2 mg PO Q2H PRN PRN DIARRHEA #0 caps 09/17/24 metoprolol tartrate 25 mg tablet 25 mg PO BID #0 tabs 09/17/24 oxycodone 5 mg tablet 5 - 10 mg (1 - 2 x 5 mg) PO Q4H PRN PRN Pain Score 4-10 2 days #10 tabs 09/17/24 sennosides 8.6 mg-docusate sodium 50 mg tablet (Stimulant Laxative Plus) 1 tab PO DAILY #0 tabs 09/17/24 simethicone 40 mg/0.6 mL oral drops,suspension (Infants Simethicone) 80 mg (1.2 mL) PO TID PRN Gas #0 mL 09/17/24 Hospital Course Operations - (irrigation debridement, synovectomy and revision left shoulder replacement interchangeable parts) Summary of Care Provided Hospital Course: Patient is a 74-year-old female who presented to the hospital for a shoulder infection which resulted in irrigation, debridement, synovectomy and revision left shoulder replacement with interchangeable parts. We have been waiting on cultures and Gram stains of samples taken during surgery. During her stay she was seen by infectious disease who decided that she would be placed on a PICC line for 6 weeks with IV vancomycin and p.o. rifampin for 6 weeks followed by oral suppressive antibiotics. Patient did have postoperative hypotension and hypoxia both of which has improved. Patient initially plan to go home due to patient doing poorly with physical therapy and unable to manage IV antibiotics from home she was able to get into [facility] TCU. Patient did have 1 episode of diarrhea for which she was placed under C. difficile precautions. Patient was tested for C. difficile and it was negative. Patient will follow-up per postoperative instructions. Patient was able to take dressing off on postop day 5. As long as incision looks clean dry and intact patient is able to take a shower and leave dressing open to air. Patient is to wear the sling at all times other than in the shower. Patient has to follow reverse total shoulder protocol including no motion of the shoulder for the first 2 weeks. Patient will then progress from passive range of motion to active range of motion between weeks 2 and 6 with physical therapy. Patient has a follow-up with our office at 2 weeks and will begin physical therapy following that appointment. Patient will be discharged with Tylenol and oxycodone for pain control. Patient was educated to take Tylenol 1000 mg every 8 hours taking no more than 3000 mg in 24 hours. Patient can use oxycodone as needed for pain control. Patient will be on aspirin 81 mg 2 times per day for 4 weeks postoperatively for blood clot prevention. Patient will also be wearing thigh-high ELEAZAR hose for 2 weeks postoperatively. Patient will be discharged on IV vancomycin as well as p.o. rifampin per infectious disease. Patient will be on famotidine for 30 days postoperatively. Patient is follow-up per postoperative instructions. Patient does have 2-week follow-up visit scheduled at our office. Patient was encouraged to call with any questions, concerns, new problems. All questions were answered to best my ability. Weight / BMI Weight Weight: 105.4 kg Body Mass Index (BMI) 36.3 ABG / Lab / Microbiology Data 09/16/24 06:00 09/16/24 06:00 Laboratory: Laboratory Results - last 24 hr 09/18/24 06:30: Vancomycin Trough 10.7 Microbiology: Microbiology 09/13/24 Unknown Tissue - Shoulder Gram Stain - Final 09/13/24 Unknown Tissue - Shoulder Wound Culture - Final Staphylococcus aureus 09/13/24 Unknown Tissue - Shoulder Anaerobic Culture - Final No anaerobic bacteria isolated. 09/13/24 Unknown Tissue - Shoulder Gram Stain - Final 09/13/24 Unknown Tissue - Shoulder Wound Culture - Final Staphylococcus aureus 09/13/24 Unknown Tissue - Shoulder Anaerobic Culture - Final No anaerobic bacteria isolated. 09/13/24 Unknown Tissue - Shoulder Gram Stain - Final 09/13/24 Unknown Tissue - Shoulder Wound Culture - Final Staphylococcus aureus 09/13/24 Unknown Tissue - Shoulder Anaerobic Culture - Final No anaerobic bacteria isolated. 09/17/24 08:30 Stool Clostridioides difficile (PCR) - Final 09/11/24 Unknown Fluid - Synovial (joint) Gram Stain - Final 09/11/24 Unknown Fluid - Synovial (joint) Body Fluid Culture - Final Meth. resistant Staph. aureus 09/11/24 Unknown Fluid - Synovial (joint) Anaerobic Culture - Final No anaerobic bacteria isolated. 09/15/24 11:10 Mucosa - Nasopharyngeal Coronavirus COVID-19 PCR - Final 09/15/24 11:10 Mucosa - Nasopharyngeal Respiratory Panel (PCR) - Final 09/13/24 14:35 Blood Culture (Wb) - Left Wrist Blood Culture - Preliminary No growth in 48 hours. 09/12/24 08:19 Swab (Method) Nasal Screen MRSA/MSSA - Final D/C Instructions DC O2, CPAP, BIPAP Needs Home O2 Discharge instructions: No Meaningful Use Info Meaningful Use Meaningful Use Diagnoses (Choose all that apply): None applicable Ischemic Stroke Statin Dosing Therapy Reference: STATIN DOSE THERAPY REFERENCE: * Patients > 75 years receive moderate or high dose statin therapy. * Patients 75 years or YOUNGER should receive HIGH intensity statin dose unless contraindicated. You will be required to document reason for non-treatment if statin daily dose does not meet guidelines. HIGH DOSE STATIN THERAPY DAILY Atorvastatin > than or = to 40 mg Rosuvastatin > than or = to 20 mg Amlodipine + Atorvastatin > than or = to 2.5/40 mg Ezetimibe + Simvastatin 10/80 mg Simvastatin 80mg Discharge Plan Admission Admit Date/Time: 09/14/24 12:40 Primary Reason for Your Visit: Left shoulder periprosthetic joint infection Attending Provider: Fahad Cavanaugh Primary Care Provider: Kamar Grimes Consulting Providers: Emili Lee; Jamie Jiang; Tru Andrade Instructions Patient Instructions: PICC, PICC Change Dressing Dc, Caring for Your PICC Dc, PICC Line Flushing Home Ch, Flushing Your PICC Line at Home, ED PICC Line Care Additional Instructions / Restrictions: Wear shoulder immobilizer at all times. No range of motion at the shoulder. 2 weeks. No soaking, submerging for 6 weeks. No lotions, salves over incision for 6 weeks. Discharge Orders/Prescriptions Prescriptions: New vancomycin in dextrose 5 % 1 gram/200 mL Piggyback 1,000 mg IV Q24H 39 Days Qty: 3900 0RF Rx Instructions: stop date 10/25/24. Dx: shoulder PJI. weekly bmp, cbc, vanc trough, and esr. Fax to [phone]. Routine picc care per protocol. rifampin 300 mg Capsule 300 mg PO BID 39 Days Qty: 78 0RF loperamide 2 mg Capsule 2 mg PO Q2H PRN PRN (Reason: DIARRHEA) Qty: 0 0RF acetaminophen 500 mg Tablet 1,000 mg PO Q8 Qty: 1 0RF famotidine 20 mg Tablet 20 mg PO DAILY Qty: 0 0RF aspirin 81 mg Tablet,Chewable 81 mg PO BID Qty: 0 0RF oxycodone 5 mg Tablet 5 - 10 mg PO Q4H PRN PRN (Reason: Pain Score 4-10) 2 Days Qty: 10 0RF metoprolol tartrate 25 mg Tablet 25 mg PO BID Qty: 0 0RF sennosides-docusate sodium [Stimulant Laxative Plus] 8.6-50 mg Tablet 1 tab PO DAILY Qty: 0 0RF simethicone [Infants Simethicone] 40 mg/0.6 mL Drops,Suspension 80 mg PO TID PRN (Reason: Gas) Qty: 0 0RF Continued losartan 50 MG tablet 50 mg PO BID Patient Comments: BLOOD PRESSURE melatonin 5 MG tablet 10 mg PO QHS Patient Comments: SLEEP pramipexole [Mirapex] 0.5 MG tablet 1 mg PO QHS Patient Comments: RESTLESS LEGS indapamide 1.25 MG tablet 2.5 mg PO DAILY gabapentin 600 MG tablet 600 mg PO QHS bupropion HCl 300 MG tablet extended release 24 hr 150 mg PO DAILY mirtazapine 15 MG tablet 15 mg PO QHS pramipexole 0.5 mg tablet 0.5 mg PO DINNER amlodipine 10 mg tablet 5 mg PO BID duloxetine [Cymbalta] 30 mg capsule,delayed release(DR/EC) 30 mg PO DAILY Referrals / Follow Up: Kamar Grimes MD [Primary Care Provider] - Tru Andrade MD [Med Staff - Active Staff] - See Referral Note (In 2 weeks- call for an appointment) Fahad Cavanaugh MD [Med Staff - Active Staff] - See Referral Note (In 2 weeks, call for an appointment) Disposition Disposition (needs filled in before D/C Order can be placed): Nursing Home Facility
--- NOTE | 2024-09-18 16:20 | NURSING ---
All documentation by nursing home social worker Uzma Gonzalez reviewed by nursing assistants teacher Abena HAMPTONN, RN.
== END 2024-09-18 12:30 | disposition skilled nursing facility (03) | DRG 483 ==
LOC: ACINP 16:50 → MS3 09-14 04:51
PROVIDERS: Anesthesiology; Internal Medicine; Admitting Provider Specialist; PCP Family Medicine; Referring Provider Specialist; Visit Provider Specialist
PROC: 0RRK00Z Replacement of Left Shoulder Joint with Reverse Ball and Socket Synthetic Substitute, Open Approach (ICD-10-PCS; principal; 2024-09-13 13:15)
DX: T84.59XA Infection and inflammatory reaction due to other internal joint prosthesis, initial encounter (principal); B95.62 Methicillin resistant Staphylococcus aureus infection as the cause of diseases classified elsewhere; Z66 Do not resuscitate; K76.89 Other specified diseases of liver; I10 Essential (primary) hypertension; F32.A Depression, unspecified; G25.81 Restless legs syndrome; G62.9 Polyneuropathy, unspecified; I95.2 Hypotension due to drugs; E78.00 Pure hypercholesterolemia, unspecified; R19.7 Diarrhea, unspecified; K59.00 Constipation, unspecified; I95.9 Hypotension, unspecified; R09.02 Hypoxemia; G47.00 Insomnia, unspecified; T41.45XA Adverse effect of unspecified anesthetic, initial encounter; Z96.611 Presence of right artificial shoulder joint; Z87.891 Personal history of nicotine dependence; Z11.52 Encounter for screening for COVID-19; Y79.2 Prosthetic and other implants, materials and accessory orthopedic devices associated with adverse incidents
CPT/HCPCS: 36415; 36569; 71046; 73030; 80048; 80202; 82962; 83735; 85025; 85027; 87015; 87040; 87070; 87075; 87077; 87081; 87101; 87102; 87116; 87186; 87205; 87206; 87493; 87633; 87635; 89050; 89051; 93005; 94640; 94668; 97110; 97116; 97162; 97166; 97530; 97535; 99252; C1713; C1776; A4216; G0463

== ENCOUNTER 2024-09-18 12:40 | Inpatient (IN) | payer MEDICARE, SELFPAY ==
[2024-09-18 13:14] VITALS: BP 173/91; PULSE 87; RESP 18; TEMP 36.4; O2SAT 95
[2024-09-18 14:06] VITALS: BMI 37.0
[2024-09-18 14:20] VITALS: PULSE 86; RESP 18; O2SAT 96
--- NOTE | 2024-09-18 16:22 | CASEMGMT ---
Social Work- Met with pt to complete initial assessment. Introduced self and role. Verified/updated contacts. Patient confirmed code status as DNR-CCA, no intubation. Pt?s goal is to return home with spouse. SW will continue to follow for DC planning. Pt scored 15/15 on BIMS. Pt reports no feelings of isolation, hopelessness, depression, or lack of interest in previously enjoyed activities. Pt reports everyone during her stay has been fantastic, so nice and provided excellent care. GREER Chacko
[2024-09-18] MEDS: Acetaminophen 500 MG Tablet 1000 MG PO (16:44)
[2024-09-18] MEDS: Simethicone 40MG/0.6ML Bottle 80 MG PO (16:51)
[2024-09-18] MEDS: Aspirin 81 MG TAB.CHEW PO (16:52)
[2024-09-18] MEDS: Pramipexole Di-HCl 0.5 MG Tablet PO (16:52)
--- NOTE | 2024-09-18 20:36 | PCM.HP.STD ---
HPI - General General Date of Admission: 09/18/24 Date of Service: 09/18/24 HPI Narrative OSCAR ROMAN, is a 74 Female who presents with following: Patient underwent left reverse total shoulder [place] [address] Cavanaugh, left shoulder had no issues, or pain until 1 week prior to admission. 09/13/2024 Patient has left shoulder periprosthetic joint infection. 09/13/2024 Dr. Cavanaugh performed irrigation debridement, complete synovectomy revision left reverse total shoulder replacement. 09/14/2024 Sitting up in chair, left arm sling. Previous culture growing MRSA, on Vancomycin IV. Hold amlodipine, Hold Indapamide for low blood pressure. Hemoglobin 10.2. 09/15/2024 More short of breath. Vancomycin IV, shoulder culture growing S. Aureus, blood cultures negative. Pulsox 88%, viral swab pending. Hold blood pressure medications 2/2 low blood pressure. Hemoglobin improved. 09/16/2024 ID recommended 6 weeks IV Vancomycin/PO Rifampin via PICCline for MRSA, MSSA left shoulder periprosthetic joint infection. 09/16/2024 Unable to go home alone.. PT/OT SNF. 09/16/2024 Check stool for c. diff for diarrhea. 09/17/2024 ID states after IV Vancomycin for 6 weeks, will need prolonged PO suppressive therapy. 09/18/2024 Admit to TCU with debility, here for rehabilitation, strengthening, intravenous antibiotics, prior to discharge home alone. [facility] Medical History MRSA (methicillin resistant staph aureus) culture positive Wears glasses Post-menopausal Depression Anxiety Walker as ambulation aid Ambulates with cane Arthritis High cholesterol Back pain Restless legs Former smoker Shortness of breath on exertion History of pain when walking History of edema Hypertension Home Medications ?Medication ?Instructions ?Recorded ?Last Taken ?Type losartan 50 mg tablet 50 mg PO BID BP 09/19/14 09/13/24 History melatonin 5 mg tablet 10 mg PO QHS INSOMNIA 09/19/14 Unknown History indapamide 1.25 mg tablet 2.5 mg PO DAILY BP 04/12/17 Unknown History pramipexole 0.5 mg tablet (Mirapex) 1 mg PO QHS RLS 04/12/17 Unknown History bupropion HCl 300 mg 24 hr tablet, 150 mg PO DAILY DEPRESSION 06/11/20 09/13/24 History extended release gabapentin 600 mg tablet 600 mg PO QHS SLEEP 06/11/20 Unknown History mirtazapine 15 mg tablet 15 mg PO QHS INSOMNIA 06/24/20 06/23/20 20:00 History amlodipine 10 mg tablet 5 mg PO BID BP 09/11/24 09/13/24 History duloxetine 30 mg capsule,delayed 30 mg PO DAILY DEPRESSION 09/11/24 09/13/24 History release (Cymbalta) pramipexole 0.5 mg tablet 0.5 mg PO DINNER RLS 09/11/24 Unknown History rifampin 300 mg capsule 300 mg PO BID antibiotic 39 days 09/16/24 Unknown Rx #78 caps vancomycin 1 gram/200 mL in 1,000 mg IV Q24H infection 39 days 09/16/24 Unknown Rx dextrose 5 % intravenous piggyback #3,900 mL acetaminophen 500 mg tablet 1,000 mg (2 x 500 mg) PO Q8 pain 09/17/24 Unknown Rx #1 TAB aspirin 81 mg chewable tablet 81 mg PO BID blood thinner #0 tabs 09/17/24 Unknown Rx famotidine 20 mg tablet 20 mg PO DAILY reflux #0 tabs 09/17/24 Unknown Rx loperamide 2 mg capsule 2 mg PO Q2H PRN PRN DIARRHEA #0 09/17/24 Unknown Rx caps metoprolol tartrate 25 mg tablet 25 mg PO BID pulse/BP #0 tabs 09/17/24 Unknown Rx oxycodone 5 mg tablet 5 - 10 mg (1 - 2 x 5 mg) PO Q4H 09/17/24 Unknown Rx PRN PRN Pain Score 4-10 2 days #10 tabs sennosides 8.6 mg-docusate sodium 1 tab PO DAILY stool softener #0 09/17/24 Unknown Rx 50 mg tablet (Stimulant Laxative tabs Plus) simethicone 40 mg/0.6 mL oral 80 mg (1.2 mL) PO TID PRN Gas #0 mL 09/17/24 Unknown Rx drops,suspension (Infants Simethicone) Allergy/AdvReac Type Severity Reaction Status Date / Time Penicillins Allergy Anaphylaxis Verified 09/13/24 12:05 Surgical History History of surgery Hx of colonoscopy Hx of right cataract extraction Hx of left cataract extraction History of partial colectomy Hx of appendectomy Hx of total hip arthroplasty Hx of total shoulder replacement Hx of lumbar discectomy Hx of total shoulder replacement Hx of total hip arthroplasty Social History (Updated 09/18/24 @ 20:[address] Rodrigo Sanches MD) household members: none Smoking Status: Former smoker alcohol intake: never substance use type: does not use ROS Constitutional Constitutional: Reports weakness ENT HEENT: Denies headache(s), nasal congestion or nasal discharge Cardiovascular Cardiovascular: Denies chest pain or palpitations Respiratory/Chest Respiratory/Chest: Denies cough, excessive phlegm production or shortness of breath with exertion Gastrointestinal Gastrointestinal: Denies abdominal pain, nausea or vomiting Genitourinary Genitourinary: Denies dysuria Musculoskeletal Musculoskeletal: Denies joint pain or joint swelling Integumentary Integumentary: Denies rash or wounds Neurologic Neurologic: Denies focal weakness, numbness or tingling Psychiatric Psychiatric: Denies anxiety, auditory hallucinations, depression, homicidal ideation or suicidal ideation Vital Signs Vital Signs Vital Signs: 09/18/24 13:14 09/18/24 14:20 Temperature 97.5 F L Temperature Source Temporal Pulse Rate 87 86 Pulse Rhythm Irregular Pulse Strength Normal (2+) Respiratory Rate 18 18 Respiratory Effort Normal Non-Labored Respiratory Depth Normal Respiratory Pattern Normal Blood Pressure 173/91 H Blood Pressure Mean 118 Blood Pressure Source Monitor Blood Pressure Position Sitting Blood Pressure Location Left Arm Pulse Ox 95 96 Oxygen Delivery Method Room Air Room Air Weight Weight: 107.275 kg Body Mass Index (BMI) 37.0 Physical Exam Const alert General Appearance: cooperative HEENT normocephalic Eyes PERRL and EOMs intact bilaterally Neck supple, no JVD and no carotid bruits Resp normal respiratory effort, normal air movement and clear to auscultation bilaterally Cardio regular rate and regular rhythm GI normal to inspection, nondistended, normoactive bowel sounds, non-tender and non-distended Extremity normal capillary refill Extremity Narrative: RUE PICC line, LUE sling/immobilizer. General Extremity: Negative for edema Skin no rashes or lesions noted General Skin Exam: no breakdown Psych affect normal Appearance: appropriate Assessment & Plan Assessment/Plan (1) Debility: (2) Infection and inflammatory reaction due to other internal joint prosthesis, initial encounter: (3) Acute respiratory failure with hypoxia: (4) Essential (primary) hypertension: (5) Depression: QUALIFIERS: Depression Type: unspecified Qualified Code(s): F32.A - Depression, unspecified (6) Neuropathy: (7) Restless legs: (8) Insomnia: QUALIFIERS: Insomnia type: unspecified Qualified Code(s): G47.00 - Insomnia, unspecified PLAN: Plan 74 year old female with below past medical history hospitalized for left shoulder periprosthetic joint infection, underwent irrigation debridement complete synovectomy, revision left reverse total shoulder replacement 09/13/[address] Cavanaugh, postoperative course complicated by acute respiratory failure with hypoxia, admitted to TCU with debility, here for rehabilitation, strengthening, intravenous antbiotics, prior to discharge home alone. Debility - PT/OT. Pain - Tylenol 1000mg q8, Oxycodone 5-10mg q4h prn. Bowel - senna/colace 1 tablet daily, Dulcolax 10mg pr daily prn, Magnesium citrate 300mL po x 1 prn, Loperamide 2mg q2h prn. Adult immunization - Administer pneumonia vaccine, covid vaccine, flu vaccine as appropriate. DVT prophylaxis - Aspirin 81mg bid thru 09/28/2024. Hypertension - Metoprolol 25mg bid, Amlodipine 5mg bid, Losartan 50mg bid, Indapamide 2.5mg daily. 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 Dry eyes - Artificial tears 2gtt ou q1h prn. GERD - Famotidine 20mg daily. Neuropathic pain - Gabapentin 600mg qhs. Insomnia - Melatonin 10mg qhs. Skin irritation - Calmoseptine topical bid. Restless leg syndrome - Mirapex 0.5mg dinner, 1mg qhs. MSSA/MRSA left periprosthetic shoulder joint infection status post cleanout - Vancomycin 1gm iv q24 thru 10/25/2024, Rifampin 300mg bid, consult Dr. Andrade for expert care. Gas - Simethicone 80mg tid prn.
[2024-09-18 21:58] VITALS: BP 153/89; PULSE 91; RESP 18; O2SAT 93
[2024-09-18 21:59] VITALS: BP 153/89; PULSE 91
[2024-09-18] MEDS: rifAMPin 300 MG Capsule PO (21:59)
[2024-09-18] MEDS: amLODIPine 5 MG Tablet PO (21:59)
[2024-09-18] MEDS: Gabapentin 600 MG Tablet PO (21:59)
[2024-09-18] MEDS: Metoprolol Tartrate 25 MG Tablet PO (21:59)
[2024-09-18] MEDS: Mirtazapine 15 MG Tablet PO (22:00)
[2024-09-18] MEDS: Losartan Potassium 50 MG Tablet PO (22:00)
[2024-09-18] MEDS: 0.9% Saline Lock 10 ML Syringe IV (22:00)
[2024-09-18] MEDS: Pramipexole Di-HCl 1 MG Tablet PO (22:00)
[2024-09-18] MEDS: oxyCODONE 5 MG Tablet PO (22:06)
[2024-09-18] MEDS: MELATONIN 10 MG TABLET PO (22:06)
[2024-09-19] MEDS: Acetaminophen 500 MG Tablet 1000 MG PO ×3 (05:14→21:51)
--- NOTE | 2024-09-19 07:32 | NURSING ---
On admit resident asked about flu/pna/covid vaccines. VIS provided. She declines all vaccines.
[2024-09-19 07:48] VITALS: BP 141/88; PULSE 89; RESP 16; TEMP 36.3; O2SAT 95
[2024-09-19] MEDS: oxyCODONE 5 MG Tablet PO ×2 (07:49→17:53)
[2024-09-19 07:50] VITALS: PULSE 89
[2024-09-19] MEDS: Losartan Potassium 50 MG Tablet PO ×2 (07:50→21:49)
[2024-09-19] MEDS: DULoxetine Hcl 30 MG Capsule PO (07:50)
[2024-09-19] MEDS: Aspirin 81 MG TAB.CHEW PO ×2 (07:50→17:48)
[2024-09-19] MEDS: Metoprolol Tartrate 25 MG Tablet PO ×2 (07:50→21:50)
[2024-09-19] MEDS: rifAMPin 300 MG Capsule PO ×2 (07:51→21:53)
[2024-09-19] MEDS: amLODIPine 5 MG Tablet PO ×2 (07:51→21:52)
[2024-09-19] MEDS: buPROPion (XL) 150 MG TABLET.XL PO (07:51)
[2024-09-19] MEDS: Senna/Docusate Sodium 1 Tablet PO (07:51)
[2024-09-19] MEDS: Famotidine 20 MG Tablet PO (07:51)
[2024-09-19] MEDS: Indapamide 2.5 MG Tablet PO (07:51)
[2024-09-19 07:57] LABS: Absolute Lymphocyte Count 1.49 X10^3/uL (0.83-4.51); Absolute Neutrophil Count 7.6 X10^3/uL (2.0-7.7); Basophil# 0.08 X10^3/uL; Basophil% 0.8 % (0-1); Eosinophils% 2.9 % (0-5); Hematocrit 38.9 % (37-47); Hemoglobin 12.3 g/dL (12.0-15.0); Lymphocyte # 1.49 X10^3/ul (0.83-4.51); Lymphocyte % 14.6 % (19-41); Mean Corp Hgb Conc 31.6 g/dL (32-36); Mean Corpuscular Hgb 29.4 pg (27.0-32.0); Mean Corpuscular Volume 93.1 fL (81-99); Mean Platelet Vol. 9.5 fl (6.2-12.0); Monocyte# 0.64 X10^3/uL; Monocyte% 6.3 % (0-10); NRBC Flagged by Analyzer 0 % (0-5); Neutrophil # 7.58 X10^3/uL (2.7-7.7); Neutrophil % 74.2 % (47-70); Platelet Count 349 K/mm3 (150-450); RBC Distribution Width CV 14.1 % (11.6-14.6); RBC Distribution Width SD 48.7 fl (35.1-43.9); Red Blood Count 4.18 M/mm3 (4.2-5.4); White Blood Count 10.2 K/mm3 (4.4-11.0)
--- NOTE | 2024-09-19 07:57 | PCM.PN.ID ---
ID ID: Route of nutrition/ use of supplements: [] Nutritional Intake: [] IV Site: [] Day Catheter: [] Assessment & Plan Assessment/Plan (1) Infection of prosthetic shoulder joint: PLAN: Aspiration cx with MRSA. Taken to OR 09/13/[address] Cavanaugh for revision; surg cx x2 with MSSA. Picc in place. Plan is for iv vanc and po rifampin for 6 weeks with stop date 10/25/24 with weekly bmp, cbc, LFT, and ESR. After that, will need long course suppressive po abx. Will follow while at TCU, reviewed labs and chart.
[2024-09-19 08:44] LABS: Anion Gap 14 (5-15); BUN 20 mg/dL (4-19); BUN/Creat Ratio 18.6 RATIO (10-20); Calcium,Total 9.7 mg/dL (7.6-11.0); Carbon Dioxide 30.4 mmol/L (21.0-32.0); Chloride 97 mmol/L (98-108); Creatinine, Serum 1.07 mg/dL (0.70-1.20); EST Glomerular Filtration Rate 54 (>60); Estimated Creatinine Clearance 57.28 ml/min (50-250); Glucose 101 mg/dL (70-99); Potassium 4.6 mmol/L (3.3-5.1); Sodium Level 142 mmol/L (133-145)
[2024-09-19] MEDS: Vancomycin IV 1,000 MG/200 ML BAG 200 MG IV (09:14)
[2024-09-19] MEDS: 0.9% Normal Saline (100mL Bag) 100 ML 15 ML IV (09:14)
[2024-09-19] MEDS: Tuberculin,Purif.prot.deriv. 50 TU/ML Vial 0.1 ML ID (09:15)
[2024-09-19] MEDS: Menthol/Lanolin/Calamine/Znox 113 GM Tube 1 APPLIC TOPICAL ×2 (09:15→21:55)
[2024-09-19] MEDS: 0.9% Saline Lock 10 ML Syringe IV (09:20)
--- NOTE | 2024-09-19 13:06 | NURSING ---
Clarified orders with ANNA Ivy on 09/18/24- patient to be [facility] to [facility]. Aspirin 81mg BID x2 weeks. Called office and left VM about having reverse total should protocol faxed to TCU.
[2024-09-19 13:33] VITALS: PULSE 89; RESP 16; O2SAT 95
--- NOTE | 2024-09-19 14:27 | PCM.PN.DRR ---
TCU RX Drug Regimen Review Subjective/Objective Subjective/Objective Subjective: 74 YOF admitted to TCU on 09/18/24 s/p hospitalization to [facility] for a left shoulder joint infection. The patient had surgical intervention to washout the infected joint while admitted. Admitted to TCU for IV antibiotics, strengthening and rehabilitation prior to discharge home where she currently resides alone. Objective: Allergies Penicillins Allergy (Verified 09/13/24 12:05) Anaphylaxis Current Medications Generic Name Dose Route Start Last Admin Trade Name Freq PRN Reason Stop Dose Admin Acetaminophen 1,000 mg 09/18/24 14:00 09/19/24 13:21 Acetaminophen 500 Mg Tablet PO 1,000 mg Q8 KACEY Administration Amlodipine Besylate 5 mg 09/18/24 22:00 09/19/24 07:51 Amlodipine 5 Mg Tablet PO 5 mg BID KACEY Administration Protocol Artificial Tears 2 drp 09/18/24 13:40 Carboxymethylcellulose Sodium 15 Ml Ophth Drops EACH EYE Q1H PRN DRY EYES Aspirin 81 mg 09/18/24 17:00 09/19/24 07:50 Aspirin 81 Mg Tab.Chew PO 09/28/24 23:59 81 mg BIDCM KACEY Administration Bisacodyl 10 mg 09/18/24 13:23 Bisacodyl 10 Mg Suppository RC DAILY PRN PRN Constipation Bupropion HCl 150 mg 09/19/24 10:00 09/19/24 07:51 Bupropion (Xl) 150 Mg Tablet.Xl PO 150 mg DAILY KACEY Administration Calamine/Phenol 1 applic 09/18/24 22:00 09/19/24 09:15 Menthol/Lanolin/Calamine/Znox 113 Gm Tube TOPICAL 1 applic BID KACEY Administration Protocol Duloxetine HCl 30 mg 09/19/24 10:00 09/19/24 07:50 Duloxetine Hcl 30 Mg Capsule PO 30 mg DAILY KACEY Administration Famotidine 20 mg 09/19/24 10:00 09/19/24 07:51 Famotidine 20 Mg Tablet PO 20 mg DAILY KACEY Administration Gabapentin 600 mg 09/18/24 22:00 09/18/24 21:59 Gabapentin 600 Mg Tablet PO 600 mg QHS KACEY Administration Vancomycin IV-PHARMACY TO DOSE 500 mls @ 250 mls/hr 09/18/24 13:50 1 each/ Sodium Chloride IV 10/25/24 08:01 X1 PRN Rx to Dose Protocol Vancomycin HCl 1,000 mg in 200 mls @ 200 mls/hr 09/19/24 08:00 09/19/24 10:42 Vancomycin IV 10/25/24 08:01 Infused Q24H KACEY Infusion Sodium Chloride 100 mls @ 15 mls/hr 09/19/24 07:56 09/19/24 09:14 IV 15 mls/hr .Q6H40M PRN Administration Saline Flush Sodium Chloride 100 mls @ 15 mls/hr 09/19/24 07:56 IV .Q6H40M PRN Additional IVPB Infusion Indapamide 2.5 mg 09/19/24 10:00 09/19/24 07:51 Indapamide 2.5 Mg Tablet PO 2.5 mg DAILY KACEY Administration Loperamide HCl 2 mg 09/18/24 13:16 Loperamide 2 Mg Capsule PO Q2H PRN PRN DIARRHEA/LOOSE STOOLS Losartan Potassium 50 mg 09/18/24 22:00 09/19/24 07:50 Losartan Potassium 50 Mg Tablet PO 50 mg BID KACEY Administration Protocol Magnesium Citrate 300 ml 09/18/24 13:23 Magnesium Citrate 300 Ml PO X1 PRN Constipation Melatonin 10 mg 09/18/24 22:00 09/18/24 22:06 Melatonin 10 Mg Tablet PO 10 mg QHS KACEY Administration Metoprolol Tartrate 25 mg 09/18/24 22:00 09/19/24 07:50 Metoprolol Tartrate 25 Mg Tablet PO 25 mg BID KACEY Administration Protocol Mirtazapine 15 mg 09/18/24 22:00 09/18/24 22:00 Mirtazapine 15 Mg Tablet PO 15 mg QHS KACEY Administration Oxycodone HCl 5 - 10 mg 09/18/24 13:16 09/19/24 07:49 Oxycodone 5 Mg Tablet PO 10 mg Q4H PRN PRN Administration Pain Score 4-10 Pramipexole Dihydrochloride 1 mg 09/18/24 22:00 09/18/24 22:00 Pramipexole Di-Hcl 1 Mg Tablet PO 1 mg QHS KACEY Administration Pramipexole Dihydrochloride 0.5 mg 09/18/24 17:00 09/18/24 16:52 Pramipexole Di-Hcl 0.5 Mg Tablet PO 0.5 mg DINNER KACEY Administration Rifampin 300 mg 09/18/24 22:00 09/19/24 07:51 Rifampin 300 Mg Capsule PO 300 mg BID KACEY Administration Senna/Docusate Sodium 1 tablet 09/19/24 10:00 09/19/24 07:51 Senna/Docusate Sodium 1 Tablet PO 1 tablet DAILY KACEY Administration Simethicone 80 mg 09/18/24 13:16 09/18/24 16:51 Simethicone 40mg/0.6ml Bottle PO 80 mg TID PRN Administration Gas Sodium Chloride 10 - 40 ml 09/18/24 15:39 09/19/24 09:20 0.9% Saline Lock 10 Ml Syringe IV 20 ml UD PRN Administration Open End PICC Flush Sodium Chloride 10 - 40 ml 09/19/24 07:56 0.9% Saline Lock 10 Ml Syringe IV UD PRN Open End PICC Flush Sodium Chloride 10 - 40 ml 09/19/24 07:56 0.9 % Nacl (Sterile) Posiflush 10 Ml IV UD PRN Port access or dressing change Tuberculin PPD 0.1 ml 09/26/24 10:00 Tuberculin,Purif.Prot.Deriv. 50 Tu/Ml Vial ID 09/26/24 10:01 X1 ONE Vancomycin Protocol 1 lab 09/20/24 05:30 Vancomycin Trough/Random Due MC 09/20/24 09:30 DAILY [facility] Problem List Infection of prosthetic shoulder joint (Acute) Essential (primary) hypertension (Acute) Acute respiratory failure with hypoxia (Acute) Debility (Acute) Infection and inflammatory reaction due to other internal joint prosthesis, initial encounter (Acute) Insomnia (Acute) Restless legs (Acute) Neuropathy (Acute) Depression (Acute) Vital Signs Temp Pulse Resp BP Pulse Ox O2 Del Method 97.3 F L 89 16 141/88 H 95 Room Air 09/19/24 07:48 09/19/24 13:33 09/19/24 13:33 09/19/24 07:48 09/19/24 13:33 09/19/24 13:33 Oxygen Delivery Method Room Air Weight: 107.275 kg Body Mass Index (BMI) 37.0 Sodium 142 mmol/L (133-145) 09/19/24 07:06 Potassium 4.6 mmol/L (3.3-5.1) 09/19/24 07:06 Chloride 97 mmol/L (98-108) L 09/19/24 07:06 Carbon Dioxide 30.4 mmol/L (21.0-32.0) 09/19/24 07:06 Anion Gap 14 (5-15) 09/19/24 07:06 BUN 20 mg/dL (4-19) H 09/19/24 07:06 Creatinine 1.07 mg/dL (0.70-1.20) 09/19/24 07:06 Est GFR (MDRD) Non-Af 54 (>60) L 09/19/24 07:06 BUN/Creatinine Ratio 18.6 RATIO (10-20) 09/19/24 07:06 Glucose 101 mg/dL (70-99) H 09/19/24 07:06 Assessment/Plan: 1. Pain: Tylenol 1000mg PO Q8h, Oxycodone 5-10mg PO Q4h PRN Pain 4-10. Please continue to monitor for increased/decreased s/s pain, PRN medication usage, nausea/constipation/oversedation with narcotic use. -To date, the patient has used 2 doses of PRN oxycodone 910mg) for shoulder pain rated 7/10. 2. Shoulder Joint Infection requiring surgical wash/clean out: Vancomycin 1g IV Q24hr thru 10/25/24 (being managed by pharmacy services), rifampin 300mg PO BID. Please continue to monitor vancomycin troughs as clinically indicated (last trough 10.7 on 09/18), renal function (CrCl 57mL/min), infusion reactions, angioedema, liver function ( last done 04/2024, WNL). No new culture data at this time, therapy is appropriate based on previous cultures. ID is also following patient while admitted. 3. Post-OP DVT Prophylaxis: Aspirin 81mg PO BID thru 09/28/24. Please continue to monitor for S/S bleeding/bruising, H/H (hgb 12.3/ hct 38.9 on 09/19), s/s clot formation. 4. HTN: Norvasc 5mg PO BID, Indapamide 2.5mg PO Daily, Losartan 50mg PO BID, Lopressor 25mg PO BID. Please continue to monitor BP (last 141/88), pulse (last 89 BPM), lower extremity swelling. 5. GERD: Pepcid 20mg PO Daily. Please continue to monitor renal function (CrCl 57mL/min). Please also encourage non-pharmacologic treatments to help minimize GERD flare-ups. 6. RLS: Pramipexole 0.5mg PO Dinner and 1mg PO QHS. Please continue to monitor for abnormal dreams, dizziness, confusion, constipation, dyskinesia, drowsiness. 7. Neuropathic Pain: Gabapentin 600mg PO QHS. Please continue to monitor for oversedation, renal function (CrCl 57mL/min). This is a BEER's criteria medication which can increase the risk of falls/fractures in patients >65 years of age. Please evaluate the risk vs. benefit of prolonged use if clinically indicated. 8. Dry Eyes: Refresh artificial tears 2 gtt OU Q1h PRN. 9. Insomnia: Melatonin 10mg PO QHS. Please continue to monitor for oversedation, drowsiness, medication effectiveness. If medication appears ineffective, try administering at least 2hrs prior to desired bedtime to allow for maximum effectiveness. 10. Skin Integrity: Calmoseptine topically BID. Please continue to monitor for skin redness, irritation, ulcer/wound formations. 11. Bowel/ Gas: Senna/Docusate 1 tab PO daily, Dulcolax 10mg PO Daily PRN, magnesium Citrate 300mL PO x1 PRN, Simethicone 80mg PO TID PRN, Loperamide 2mg PO Q2h PRN. Please continue to monitor for increased/decreased constipation and/or diarrhea, abdominal pain/bloating, gas buildup. - The patient's last documented BM was on 09/18/24. Please continue to monitor for a regular bowel schedule Assessment/Plan for indications treated with psychotropic medications: 1. Depression: Bupropion XL 150mg PO Daily, Cymbalta 30mg PO daily, Remeron 15mg PO QHS. Please consider a GDR by 03/2025 if clinically indicated, thank you. Remeron and Cymbalta are both BEER's Criteria medications which can cause hyponatremia and reduce falls/fractures in patients >65 years of age. Please evaluate risk v. benefite of using for a prolonged period of time. Medical chart and medication regimen reviewed. The following medication irregularities or issues were identified: 1. Please consider obtaining LFTs since patient will be on rifampin for an extended period of time if clinically indicated, thank you. 2. Depression: Bupropion XL 150mg PO Daily, Cymbalta 30mg PO daily, Remeron 15mg PO QHS. Please consider a GDR by 03/2025 if clinically indicated, thank you. Date Date of Note: 09/19/24
--- NOTE | 2024-09-19 15:16 | CHAPLAIN ---
Type of Pastoral Visit ___ Initial Visit _x__ Follow-up Visit ___ On-call Visit ___ General Patient Visit ___ Spiritual Assessment ___ Family Conference ___ Bereavement ___ Rapid Response ___ Code Blue ___ Other (describe below) Pastoral Care Referral From _x__ Patient ___ Family ___ Nurse ___ Physician ___ Construction Accountant ___ Plate Conditioner ___ Other (describe below) Sacrament/Intervention _x__ Active listening ___ Anointing ___ Orthodoxy ___ Bereavement ___ Communion ___ Lesley exploration ___ ___ Life review _x__ Prayer ___ Reconciliation ___ Sacrament of Sick ___ Supportive presence ___ Wedding ___ Other (describe below) Pastoral Comments this is a follow up to a visit from last week in [place]; pt is welcoming as she is just finished with her therapy; initial conversation is about her therapy and move to [place]; a friend comes in to visit and asks many questions of the patient and so this painter and decorator apprentice listens to her responses about how she is doing; offered to return another day but patient says please say a prayer which was done; left the room so visit could continue with her friend; soon after saw two more friends of the patient had come to visit as well
[2024-09-19] MEDS: Pramipexole Di-HCl 0.5 MG Tablet PO (17:48)
[2024-09-19 21:45] VITALS: BP 101/60; PULSE 86; RESP 16; TEMP 37.2; O2SAT 96
[2024-09-19] MEDS: Gabapentin 600 MG Tablet PO (21:49)
[2024-09-19 21:50] VITALS: PULSE 86
[2024-09-19] MEDS: Mirtazapine 15 MG Tablet PO (21:50)
[2024-09-19] MEDS: Pramipexole Di-HCl 1 MG Tablet PO (21:51)
[2024-09-19] MEDS: MELATONIN 10 MG TABLET PO (21:52)
[2024-09-20] MEDS: oxyCODONE 5 MG Tablet PO ×3 (01:28→21:05)
[2024-09-20] MEDS: Acetaminophen 500 MG Tablet 1000 MG PO ×3 (05:47→21:04)
[2024-09-20 08:45] LABS: Vancomycin, Trough Level 9.9 ug/mL (5.0-15.0)
--- NOTE | 2024-09-20 09:02 | PCM.RX.CS ---
Consult Antibiotic Management Pharmacy has been consulted to manage selected antibiotic: Vancomycin Type of Intervention Type of Consult: Follow-up Prior Doses of Antibiotics Prior Doses of Antibiotics Received/Current Regimen: current dose is 1000mg IV q24h Labs Labs: Sodium 142 mmol/L (133-145) 09/19/24 07:06 Potassium 4.6 mmol/L (3.3-5.1) 09/19/24 07:06 Chloride 97 mmol/L (98-108) L 09/19/24 07:06 Carbon Dioxide 30.4 mmol/L (21.0-32.0) 09/19/24 07:06 Anion Gap 14 (5-15) 09/19/24 07:06 BUN 20 mg/dL (4-19) H 09/19/24 07:06 Creatinine 1.07 mg/dL (0.70-1.20) 09/19/24 07:06 Est GFR (MDRD) Non-Af 54 (>60) L 09/19/24 07:06 BUN/Creatinine Ratio 18.6 RATIO (10-20) 09/19/24 07:06 Glucose 101 mg/dL (70-99) H 09/19/24 07:06 Vancomycin Trough 9.9 ug/mL (5.0-15.0) 09/20/24 07:35 Dosing Weight Weight used for dosin kg Estimated Creatinine Clearance Estimated Creatinine Clearance: 57ml/min Goal Trough Goal Trough: 10-15 mcg/mL Pharmacy Plan for Drug Dosing Pharmacy Plan for Drug Dosing: The vanc trough drawn at 07:35 today (drawn approx 22 hours after the most recent dose) was 9.9 mcg/ml. This is below goal and has dropped from the last trough result of 10.7 so will increase dose to 1250mg IV q24h. Will check another trough before the 3rd dose. Pharmacy Service will continue to monitor and adjust dosing as required. Follow-Up Labs Follow-Up Labs: Trough: Vancomycin Date/Time Labs Ordered Labs to be done on [date and time ordered]: 09/22/24 08:30
[2024-09-20] MEDS: Vancomycin HCl 1,250 MG in 0.9% Normal Saline (250mL Bag) 250 ML 167 MG IV (09:18)
[2024-09-20] MEDS: 0.9% Saline Lock 10 ML Syringe IV ×2 (09:19→21:07)
[2024-09-20] MEDS: Aspirin 81 MG TAB.CHEW PO ×2 (09:24→16:44)
[2024-09-20 09:26] VITALS: PULSE 81
[2024-09-20] MEDS: Losartan Potassium 50 MG Tablet PO ×2 (09:26→21:05)
[2024-09-20] MEDS: DULoxetine Hcl 30 MG Capsule PO (09:26)
[2024-09-20] MEDS: Metoprolol Tartrate 25 MG Tablet PO ×2 (09:26→21:04)
[2024-09-20] MEDS: amLODIPine 5 MG Tablet PO ×2 (09:26→21:04)
[2024-09-20] MEDS: Indapamide 2.5 MG Tablet PO (09:26)
[2024-09-20] MEDS: buPROPion (XL) 150 MG TABLET.XL PO (09:27)
[2024-09-20] MEDS: Senna/Docusate Sodium 1 Tablet PO (09:27)
[2024-09-20] MEDS: rifAMPin 300 MG Capsule PO ×2 (09:27→21:04)
[2024-09-20] MEDS: Famotidine 20 MG Tablet PO (09:27)
[2024-09-20] MEDS: Menthol/Lanolin/Calamine/Znox 113 GM Tube 1 APPLIC TOPICAL ×2 (09:29→23:42)
[2024-09-20 09:35] VITALS: BP 117/53; PULSE 78; RESP 16; TEMP 36.1; O2SAT 96
--- NOTE | 2024-09-20 09:51 | NURSING ---
Guide Changer Note; Activity Asset: Franc Elinor is independent in her choice of daily activities. She has stated she enjoys the [place], riding bikes, sitting outside, reading, crocheting spending time w/grandchildren/family as much as she can. 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 Staff will encourage social activities, remind her of weekly activities and respect her right to say no.
[2024-09-20] MEDS: Loperamide 2 MG Capsule PO (13:17)
--- NOTE | 2024-09-20 13:36 | PCM.PN.ID ---
Physical Exam Narrative Feeling better, shoulder improving, no fever, no n/v/d, no issues with picc Const alert and no apparent distress General Appearance: cooperative Resp normal air movement and clear to auscultation bilaterally Cardio regular rate and regular rhythm GI soft to palpation, non-tender and non-distended Skin no rashes or lesions noted ID ID: Route of nutrition/ use of supplements: [] Nutritional Intake: [] IV Site: [] Day Catheter: [] Assessment & Plan Assessment/Plan (1) Infection of prosthetic shoulder joint: PLAN: Aspiration cx with MRSA. Taken to OR 09/13/[address] Cavanaugh for revision; surg cx x2 with MSSA. Picc in place. Plan is for iv vanc and po rifampin for 6 weeks with stop date 10/25/24 with weekly bmp, cbc, LFT, and ESR. After that, will need long course suppressive po abx. Will follow
--- NOTE | 2024-09-20 16:28 | CASEMGMT ---
Social Work Pt provided this worker with copies of advance directives. Copies placed on chart. Angelia Muniz ICE SKATING COACH FILLING STATION EQUIPMENT MECHANIC
[2024-09-20] MEDS: Pramipexole Di-HCl 0.5 MG Tablet PO (16:44)
[2024-09-20 21:00] VITALS: PULSE 80; O2SAT 93
[2024-09-20 21:04] VITALS: PULSE 80
[2024-09-20] MEDS: Pramipexole Di-HCl 1 MG Tablet PO (21:04)
[2024-09-20] MEDS: Gabapentin 600 MG Tablet PO (21:04)
[2024-09-20] MEDS: Mirtazapine 15 MG Tablet PO (21:04)
[2024-09-20] MEDS: MELATONIN 10 MG TABLET PO (21:04)
[2024-09-21 05:50] VITALS: PULSE 75; O2SAT 93
[2024-09-21] MEDS: oxyCODONE 5 MG Tablet PO ×3 (06:01→22:39)
[2024-09-21] MEDS: Acetaminophen 500 MG Tablet 1000 MG PO ×3 (06:01→22:33)
[2024-09-21 07:34] LABS: BUN 25 mg/dL (4-19); Creatinine, Serum 1.19 mg/dL (0.70-1.20); Glucose 99 mg/dL (70-99)
[2024-09-21 07:35] LABS: ALB/GLOB Ratio 0.9 RATIO (0.9-2.4); AST(SGOT) 23 U/L (<=31); Alanine Aminotransfer ALT/SGPT 15 U/L (<=34); Albumin, Serum 3.2 g/dL (3.4-4.8); Alkaline Phosphatase 120 U/L (35-104); Anion Gap 12 (5-15); BUN/Creat Ratio 21.1 RATIO (10-20); Calcium,Total 9.2 mg/dL (7.6-11.0); Carbon Dioxide 27.1 mmol/L (21.0-32.0); Chloride 99 mmol/L (98-108); EST Glomerular Filtration Rate 48 (>60); Globulin 3.5 g/dL (2.2-4.2); Potassium 4.6 mmol/L (3.3-5.1); Protein, Total 6.7 g/dL (5.9-8.4); Sodium Level 138 mmol/L (133-145); Total Bilirubin 0.22 mg/dL (0.00-1.30)
[2024-09-21] MEDS: Menthol/Lanolin/Calamine/Znox 113 GM Tube 1 APPLIC TOPICAL ×2 (10:01→22:28)
[2024-09-21] MEDS: DULoxetine Hcl 30 MG Capsule PO (10:01)
[2024-09-21] MEDS: Indapamide 2.5 MG Tablet PO (10:01)
[2024-09-21] MEDS: Famotidine 20 MG Tablet PO (10:01)
[2024-09-21] MEDS: rifAMPin 300 MG Capsule PO ×2 (10:01→22:33)
[2024-09-21] MEDS: amLODIPine 5 MG Tablet PO ×2 (10:01→22:32)
[2024-09-21] MEDS: Losartan Potassium 50 MG Tablet PO ×2 (10:01→22:30)
[2024-09-21] MEDS: Aspirin 81 MG TAB.CHEW PO ×2 (10:01→17:37)
[2024-09-21 10:02] VITALS: PULSE 80
[2024-09-21] MEDS: buPROPion (XL) 150 MG TABLET.XL PO (10:02)
[2024-09-21] MEDS: Metoprolol Tartrate 25 MG Tablet PO ×2 (10:02→22:30)
[2024-09-21] MEDS: Senna/Docusate Sodium 1 Tablet PO (10:02)
[2024-09-21] MEDS: 0.9% Saline Lock 10 ML Syringe IV ×2 (10:08→22:34)
[2024-09-21] MEDS: Vancomycin HCl 1,250 MG in 0.9% Normal Saline (250mL Bag) 250 ML 167 MG IV (10:16)
[2024-09-21 11:15] VITALS: BP 116/73; PULSE 80; RESP 18; TEMP 36.3; O2SAT 95
[2024-09-21] MEDS: Pramipexole Di-HCl 0.5 MG Tablet PO (17:38)
[2024-09-21] MEDS: Loperamide 2 MG Capsule PO ×2 (17:40→23:32)
[2024-09-21 22:27] VITALS: BP 135/71; PULSE 80
[2024-09-21 22:30] VITALS: BP 135/71; PULSE 80
[2024-09-21] MEDS: MELATONIN 10 MG TABLET PO (22:31)
[2024-09-21] MEDS: Pramipexole Di-HCl 1 MG Tablet PO (22:31)
[2024-09-21] MEDS: Mirtazapine 15 MG Tablet PO (22:33)
[2024-09-21] MEDS: Gabapentin 600 MG Tablet PO (23:31)
[2024-09-22] MEDS: Acetaminophen 500 MG Tablet 1000 MG PO ×3 (05:05→22:03)
[2024-09-22] MEDS: Loperamide 2 MG Capsule PO ×2 (05:05→15:30)
[2024-09-22 09:25] VITALS: BP 109/62; PULSE 75; RESP 18; TEMP 36.6; O2SAT 95
[2024-09-22 09:29] LABS: Vancomycin, Trough Level 12.4 ug/mL (5.0-15.0)
[2024-09-22] MEDS: Menthol/Lanolin/Calamine/Znox 113 GM Tube 1 APPLIC TOPICAL ×2 (09:32→21:59)
[2024-09-22] MEDS: Aspirin 81 MG TAB.CHEW PO ×2 (09:32→16:38)
[2024-09-22 09:33] VITALS: PULSE 75
[2024-09-22] MEDS: buPROPion (XL) 150 MG TABLET.XL PO (09:33)
[2024-09-22] MEDS: Losartan Potassium 50 MG Tablet PO ×2 (09:33→22:00)
[2024-09-22] MEDS: Indapamide 2.5 MG Tablet PO (09:33)
[2024-09-22] MEDS: Famotidine 20 MG Tablet PO (09:33)
[2024-09-22] MEDS: DULoxetine Hcl 30 MG Capsule PO (09:33)
[2024-09-22] MEDS: rifAMPin 300 MG Capsule PO ×2 (09:33→22:03)
[2024-09-22] MEDS: Metoprolol Tartrate 25 MG Tablet PO ×2 (09:33→22:00)
[2024-09-22] MEDS: amLODIPine 5 MG Tablet PO ×2 (09:33→22:02)
[2024-09-22] MEDS: 0.9% Saline Lock 10 ML Syringe IV ×2 (10:34→21:59)
[2024-09-22] MEDS: Vancomycin HCl 1,250 MG in 0.9% Normal Saline (250mL Bag) 250 ML 167 MG IV (10:34)
--- NOTE | 2024-09-22 10:47 | PCM.RX.CS ---
Consult Antibiotic Management Pharmacy has been consulted to manage selected antibiotic: Vancomycin Type of Intervention Type of Consult: Follow-up Labs Labs: Sodium 138 mmol/L (133-145) 09/21/24 06:20 Potassium 4.6 mmol/L (3.3-5.1) 09/21/24 06:20 Chloride 99 mmol/L (98-108) 09/21/24 06:20 Carbon Dioxide 27.1 mmol/L (21.0-32.0) 09/21/24 06:20 Anion Gap 12 (5-15) 09/21/24 06:20 BUN 25 mg/dL (4-19) H 09/21/24 06:20 Creatinine 1.19 mg/dL (0.70-1.20) 09/21/24 06:20 Est GFR (MDRD) Non-Af 48 (>60) L 09/21/24 06:20 BUN/Creatinine Ratio 21.1 RATIO (10-20) H 09/21/24 06:20 Glucose 99 mg/dL (70-99) 09/21/24 06:20 Vancomycin Trough 12.4 ug/mL (5.0-15.0) 09/22/24 08:40 Pharmacy Plan for Drug Dosing Pharmacy Plan for Drug Dosing: VANCOMYCIN LEVEL RECEIVED Current Vancomycin Dose: 1250mg IV Q24h Number of Doses Received: 2 (of current regimen) Vancomycin Level: 12.4 Hours Since Last Dose: 10.5hr Renal Function: SCr 1.19 on 09/21 Renal Function Trend: stable Lab/Micro: no new data Vancomycin Plan/Comments: Patient had a trough drawn which resulted in a value of 12.4 (goal 10-15). The patient's trough is within therapeutic range. Will continue current dosing of 1250mg IV Q24h and recheck a trough in 2 days to assess dosing at that time. Pending Level: 09/24/24 @0830 Pharmacy Service will continue to monitor and adjust dosing as required.
[2024-09-22] MEDS: Pramipexole Di-HCl 0.5 MG Tablet PO (16:38)
[2024-09-22 21:57] VITALS: BP 127/67; PULSE 79
[2024-09-22 22:00] VITALS: BP 127/67; PULSE 79
[2024-09-22] MEDS: Pramipexole Di-HCl 1 MG Tablet PO (22:01)
[2024-09-22] MEDS: MELATONIN 10 MG TABLET PO (22:01)
[2024-09-22] MEDS: Mirtazapine 15 MG Tablet PO (22:02)
[2024-09-22] MEDS: oxyCODONE 5 MG Tablet PO (22:06)
[2024-09-22] MEDS: Gabapentin 600 MG Tablet PO (22:06)
[2024-09-23] MEDS: Acetaminophen 500 MG Tablet 1000 MG PO ×3 (05:07→21:29)
[2024-09-23 06:10] VITALS: PULSE 80; O2SAT 96
[2024-09-23 09:05] VITALS: BP 125/63; PULSE 79; RESP 16; TEMP 36.1; O2SAT 96
[2024-09-23] MEDS: Loperamide 2 MG Capsule PO ×2 (09:09→13:54)
[2024-09-23] MEDS: Vancomycin HCl 1,250 MG in 0.9% Normal Saline (250mL Bag) 250 ML 167 MG IV (09:09)
[2024-09-23 09:10] VITALS: PULSE 79
[2024-09-23] MEDS: amLODIPine 5 MG Tablet PO ×2 (09:10→21:28)
[2024-09-23] MEDS: Losartan Potassium 50 MG Tablet PO ×2 (09:10→21:27)
[2024-09-23] MEDS: Famotidine 20 MG Tablet PO (09:10)
[2024-09-23] MEDS: DULoxetine Hcl 30 MG Capsule PO (09:10)
[2024-09-23] MEDS: Indapamide 2.5 MG Tablet PO (09:10)
[2024-09-23] MEDS: Aspirin 81 MG TAB.CHEW PO ×2 (09:10→16:49)
[2024-09-23] MEDS: Metoprolol Tartrate 25 MG Tablet PO ×2 (09:10→21:27)
[2024-09-23] MEDS: 0.9% Saline Lock 10 ML Syringe IV ×2 (09:11→21:25)
[2024-09-23] MEDS: rifAMPin 300 MG Capsule PO ×2 (09:11→21:29)
[2024-09-23] MEDS: buPROPion (XL) 150 MG TABLET.XL PO (09:11)
[2024-09-23] MEDS: Menthol/Lanolin/Calamine/Znox 113 GM Tube 1 APPLIC TOPICAL ×2 (09:13→21:26)
[2024-09-23] MEDS: Pramipexole Di-HCl 0.5 MG Tablet PO (16:49)
[2024-09-23 21:23] VITALS: BP 131/81; PULSE 80
[2024-09-23] MEDS: Gabapentin 600 MG Tablet PO (21:26)
[2024-09-23] MEDS: oxyCODONE 5 MG Tablet PO (21:26)
[2024-09-23 21:27] VITALS: BP 131/81; PULSE 80
[2024-09-23] MEDS: Pramipexole Di-HCl 1 MG Tablet PO (21:28)
[2024-09-23] MEDS: MELATONIN 10 MG TABLET PO (21:28)
[2024-09-23] MEDS: Mirtazapine 15 MG Tablet PO (21:28)
[2024-09-24] MEDS: oxyCODONE 5 MG Tablet PO (04:38)
[2024-09-24] MEDS: Acetaminophen 500 MG Tablet 1000 MG PO ×3 (05:11→20:16)
[2024-09-24] MEDS: Aspirin 81 MG TAB.CHEW PO ×2 (09:32→17:19)
[2024-09-24] MEDS: DULoxetine Hcl 30 MG Capsule PO (09:33)
[2024-09-24] MEDS: Losartan Potassium 50 MG Tablet PO ×2 (09:33→20:14)
[2024-09-24] MEDS: Menthol/Lanolin/Calamine/Znox 113 GM Tube 1 APPLIC TOPICAL ×2 (09:33→20:16)
[2024-09-24 09:34] VITALS: BP 128/71; PULSE 84
[2024-09-24] MEDS: Metoprolol Tartrate 25 MG Tablet PO ×2 (09:34→20:14)
[2024-09-24] MEDS: Indapamide 2.5 MG Tablet PO (09:34)
[2024-09-24] MEDS: amLODIPine 5 MG Tablet PO ×2 (09:34→20:15)
[2024-09-24] MEDS: Famotidine 20 MG Tablet PO (09:34)
[2024-09-24] MEDS: buPROPion (XL) 150 MG TABLET.XL PO (09:35)
[2024-09-24] MEDS: rifAMPin 300 MG Capsule PO ×2 (09:35→20:15)
[2024-09-24 09:37] LABS: Vancomycin, Trough Level 13.3 ug/mL (5.0-15.0)
[2024-09-24 09:47] VITALS: BP 128/71; PULSE 84; RESP 18; TEMP 36.7; O2SAT 93
--- NOTE | 2024-09-24 09:47 | PCM.RX.CS ---
Consult Antibiotic Management Pharmacy has been consulted to manage selected antibiotic: Vancomycin Type of Intervention Type of Consult: Follow-up Suspected Infection Suspected Infection: Skin/Soft tissue Prior Doses of Antibiotics Prior Doses of Antibiotics Received/Current Regimen: Vancomycin 1250 mg Q24H last dose given 09/23 @ 0909 Labs Labs: Sodium 138 mmol/L (133-145) 09/21/24 06:20 Potassium 4.6 mmol/L (3.3-5.1) 09/21/24 06:20 Chloride 99 mmol/L (98-108) 09/21/24 06:20 Carbon Dioxide 27.1 mmol/L (21.0-32.0) 09/21/24 06:20 Anion Gap 12 (5-15) 09/21/24 06:20 BUN 25 mg/dL (4-19) H 09/21/24 06:20 Creatinine 1.19 mg/dL (0.70-1.20) 09/21/24 06:20 Est GFR (MDRD) Non-Af 48 (>60) L 09/21/24 06:20 BUN/Creatinine Ratio 21.1 RATIO (10-20) H 09/21/24 06:20 Glucose 99 mg/dL (70-99) 09/21/24 06:20 Vancomycin Trough 13.3 ug/mL (5.0-15.0) 09/24/24 08:24 Dosing Weight Weight used for dosin kg Estimated Creatinine Clearance Estimated Creatinine Clearance: ~ 52 Goal Trough Goal Trough: 10-15 mcg/mL Pharmacy Plan for Drug Dosing Pharmacy Plan for Drug Dosing: Vancomycin trough = 13.3, continue current dosing, trough in 5 days Pharmacy Service will continue to monitor and adjust dosing as required. Follow-Up Labs Follow-Up Labs: Trough: Vancomycin Date/Time Labs Ordered Labs to be done on [date and time ordered]: 09/29/24 @ 0854
[2024-09-24] MEDS: 0.9% Saline Lock 10 ML Syringe IV (10:57)
[2024-09-24] MEDS: Vancomycin HCl 1,250 MG in 0.9% Normal Saline (250mL Bag) 250 ML 167 MG IV (11:02)
[2024-09-24 11:15] VITALS: BMI 37.1
[2024-09-24] MEDS: Loperamide 2 MG Capsule PO ×2 (12:49→20:16)
[2024-09-24] MEDS: 0.9% Normal Saline (100mL Bag) 100 ML 15 ML IV (13:04)
[2024-09-24] MEDS: Pramipexole Di-HCl 0.5 MG Tablet PO (17:19)
[2024-09-24 20:14] VITALS: PULSE 79
[2024-09-24] MEDS: MELATONIN 10 MG TABLET PO (20:15)
[2024-09-24] MEDS: Gabapentin 600 MG Tablet PO (20:15)
[2024-09-24] MEDS: Pramipexole Di-HCl 1 MG Tablet PO (20:15)
[2024-09-24] MEDS: Mirtazapine 15 MG Tablet PO (20:16)
[2024-09-25] MEDS: Acetaminophen 500 MG Tablet 1000 MG PO ×3 (05:05→22:41)
[2024-09-25] MEDS: Aspirin 81 MG TAB.CHEW PO ×2 (08:34→17:24)
[2024-09-25] MEDS: Menthol/Lanolin/Calamine/Znox 113 GM Tube 1 APPLIC TOPICAL (08:34)
[2024-09-25] MEDS: Famotidine 20 MG Tablet PO (08:35)
[2024-09-25] MEDS: DULoxetine Hcl 30 MG Capsule PO (08:35)
[2024-09-25] MEDS: Indapamide 2.5 MG Tablet PO (08:36)
[2024-09-25] MEDS: rifAMPin 300 MG Capsule PO ×2 (08:36→22:41)
[2024-09-25] MEDS: buPROPion (XL) 150 MG TABLET.XL PO (08:36)
[2024-09-25] MEDS: Loperamide 2 MG Capsule PO ×3 (08:38→22:41)
[2024-09-25 08:40] VITALS: BP 122/82; PULSE 83
[2024-09-25] MEDS: Metoprolol Tartrate 25 MG Tablet PO ×2 (08:40→22:45)
[2024-09-25] MEDS: Losartan Potassium 50 MG Tablet PO ×2 (08:40→22:41)
[2024-09-25] MEDS: amLODIPine 5 MG Tablet PO ×2 (08:41→22:40)
[2024-09-25 08:43] VITALS: BP 122/82; PULSE 83; RESP 18; TEMP 36.6; O2SAT 94
--- NOTE | 2024-09-25 08:49 | NURSING ---
Principal Scientist Note; MDS for 09/24/2024 Complete
[2024-09-25] MEDS: Vancomycin HCl 1,250 MG in 0.9% Normal Saline (250mL Bag) 250 ML 167 MG IV (11:12)
[2024-09-25] MEDS: 0.9% Saline Lock 10 ML Syringe IV (11:13)
--- NOTE | 2024-09-25 14:50 | CASEMGMT ---
Social Work- Pt scored 15/15 on BIMS and 0/2 PHQ9. Pt has no needs at this time, reporting that she has made considerable progress with therapy. GREER Chacko
[2024-09-25] MEDS: Pramipexole Di-HCl 0.5 MG Tablet PO (17:24)
[2024-09-25 22:30] VITALS: BP 118/79; PULSE 84; RESP 16; TEMP 36.4; O2SAT 93
[2024-09-25] MEDS: MELATONIN 10 MG TABLET PO (22:41)
[2024-09-25] MEDS: Mirtazapine 15 MG Tablet PO (22:41)
[2024-09-25] MEDS: Pramipexole Di-HCl 1 MG Tablet PO (22:41)
[2024-09-25] MEDS: Gabapentin 600 MG Tablet PO (22:41)
[2024-09-25 22:45] VITALS: BP 118/79; PULSE 84
[2024-09-26] MEDS: Acetaminophen 500 MG Tablet 1000 MG PO ×3 (06:05→21:36)
[2024-09-26 07:47] LABS: Absolute Lymphocyte Count 1.52 X10^3/uL (0.83-4.51); Absolute Neutrophil Count 5.2 X10^3/uL (2.0-7.7); Basophil# 0.08 X10^3/uL; Eosinophil# 0.31 X10^3/uL; Eosinophils% 3.9 % (0-5); Hemoglobin 12.1 g/dL (12.0-15.0); Lymphocyte # 1.52 X10^3/ul (0.83-4.51); Lymphocyte % 19.3 % (19-41); Mean Corp Hgb Conc 32.7 g/dL (32-36); Mean Corpuscular Hgb 29.7 pg (27.0-32.0); Mean Corpuscular Volume 90.9 fL (81-99); Mean Platelet Vol. 10.2 fl (6.2-12.0); Monocyte# 0.67 X10^3/uL; Monocyte% 8.5 % (0-10); NRBC Flagged by Analyzer 0 % (0-5); Neutrophil # 5.24 X10^3/uL (2.7-7.7); Neutrophil % 66.5 % (47-70); Platelet Count 390 K/mm3 (150-450); RBC Distribution Width CV 14.6 % (11.6-14.6); RBC Distribution Width SD 47.8 fl (35.1-43.9); Red Blood Count 4.07 M/mm3 (4.2-5.4); White Blood Count 7.9 K/mm3 (4.4-11.0)
[2024-09-26 08:20] LABS: Anion Gap 12 (5-15); BUN 29 mg/dL (4-19); BUN/Creat Ratio 25.8 RATIO (10-20); Calcium,Total 9.5 mg/dL (7.6-11.0); Carbon Dioxide 27.3 mmol/L (21.0-32.0); Chloride 100 mmol/L (98-108); Creatinine, Serum 1.13 mg/dL (0.70-1.20); EST Glomerular Filtration Rate 51 (>60); Estimated Creatinine Clearance 54.32 ml/min (50-250); Glucose 100 mg/dL (70-99); Sodium Level 139 mmol/L (133-145)
[2024-09-26 10:18] VITALS: BP 120/66; PULSE 80; RESP 17; TEMP 36.1; O2SAT 95
[2024-09-26] MEDS: Vancomycin HCl 1,250 MG in 0.9% Normal Saline (250mL Bag) 250 ML 167 MG IV (10:21)
[2024-09-26] MEDS: Menthol/Lanolin/Calamine/Znox 113 GM Tube 1 APPLIC TOPICAL (10:21)
[2024-09-26] MEDS: Losartan Potassium 50 MG Tablet PO ×2 (10:21→21:36)
[2024-09-26] MEDS: Aspirin 81 MG TAB.CHEW PO ×2 (10:21→16:48)
[2024-09-26 10:22] VITALS: PULSE 80
[2024-09-26] MEDS: Metoprolol Tartrate 25 MG Tablet PO ×2 (10:22→21:36)
[2024-09-26] MEDS: Famotidine 20 MG Tablet PO (10:22)
[2024-09-26] MEDS: Indapamide 2.5 MG Tablet PO (10:22)
[2024-09-26] MEDS: DULoxetine Hcl 30 MG Capsule PO (10:22)
[2024-09-26] MEDS: amLODIPine 5 MG Tablet PO ×2 (10:22→21:37)
[2024-09-26] MEDS: rifAMPin 300 MG Capsule PO ×2 (10:23→21:36)
[2024-09-26] MEDS: buPROPion (XL) 150 MG TABLET.XL PO (10:23)
[2024-09-26] MEDS: 0.9% Saline Lock 10 ML Syringe IV (10:24)
[2024-09-26] MEDS: 0.9% Normal Saline (100mL Bag) 100 ML 15 ML IV (10:24)
[2024-09-26] MEDS: Tuberculin,Purif.prot.deriv. 50 TU/ML Vial 0.1 ML ID (12:38)
[2024-09-26] MEDS: Loperamide 2 MG Capsule PO ×2 (12:38→21:35)
[2024-09-26] MEDS: Pramipexole Di-HCl 0.5 MG Tablet PO (16:48)
[2024-09-26 21:20] VITALS: BP 150/71; PULSE 81; RESP 17; TEMP 35.8; O2SAT 98
[2024-09-26 21:36] VITALS: BP 150/71; PULSE 81
[2024-09-26] MEDS: MELATONIN 10 MG TABLET PO (21:36)
[2024-09-26] MEDS: Mirtazapine 15 MG Tablet PO (21:36)
[2024-09-26] MEDS: Gabapentin 600 MG Tablet PO (21:37)
[2024-09-26] MEDS: Pramipexole Di-HCl 1 MG Tablet PO (21:37)
[2024-09-27] MEDS: Acetaminophen 500 MG Tablet 1000 MG PO ×3 (05:53→20:45)
[2024-09-27] MEDS: Aspirin 81 MG TAB.CHEW PO ×2 (08:19→17:16)
[2024-09-27] MEDS: Losartan Potassium 50 MG Tablet PO ×2 (08:20→20:45)
[2024-09-27] MEDS: DULoxetine Hcl 30 MG Capsule PO (08:20)
[2024-09-27] MEDS: Menthol/Lanolin/Calamine/Znox 113 GM Tube 1 APPLIC TOPICAL ×2 (08:20→21:03)
[2024-09-27 08:21] VITALS: BP 120/76; PULSE 81
[2024-09-27] MEDS: Metoprolol Tartrate 25 MG Tablet PO ×2 (08:21→20:53)
[2024-09-27] MEDS: Indapamide 2.5 MG Tablet PO (08:21)
[2024-09-27] MEDS: amLODIPine 5 MG Tablet PO ×2 (08:21→20:45)
[2024-09-27] MEDS: Famotidine 20 MG Tablet PO (08:21)
[2024-09-27] MEDS: buPROPion (XL) 150 MG TABLET.XL PO (08:22)
[2024-09-27] MEDS: rifAMPin 300 MG Capsule PO ×2 (08:22→21:01)
[2024-09-27] MEDS: Loperamide 2 MG Capsule PO ×4 (08:25→20:53)
[2024-09-27 08:28] VITALS: BP 120/76; PULSE 81; RESP 18; TEMP 36.7; O2SAT 96
--- NOTE | 2024-09-27 10:14 | NURSING ---
PT LEFT AT 0955 FOR APPOINTMENT WITH . FAMILY TAKING PT.
--- NOTE | 2024-09-27 11:48 | NURSING ---
PT RETURNED TO FLOOR BY WHEEL CHAIR AT [address] APPOINTMENT. SEE NEW ORDERS.
[2024-09-27] MEDS: 0.9% Saline Lock 10 ML Syringe IV ×2 (11:53→20:57)
[2024-09-27] MEDS: Vancomycin HCl 1,250 MG in 0.9% Normal Saline (250mL Bag) 250 ML 167 MG IV (11:58)
[2024-09-27 12:50] VITALS: PULSE 89; RESP 18; O2SAT 92
--- NOTE | 2024-09-27 14:23 | CASEMGMT ---
Addendum entered by Angelia Muniz 10/01/24 09:55: [facility] stated PT will eval for OT after SOC d/t staffing. Order updated. Plan: DC home 10/08, IV ATB > 10/25, [facility] PT/SN Addendum entered by Angelia Muniz 09/30/24 16:08: SW referred to 26 [facility] agencies and [facility] is the only accepting agency. ANSHU spoke with pt and pt agreeable to use. SW educated [facility] agency will contact pt for SOC date date, but typically 2-3 days after DC, pending PCP signing orders. Pt expressed understanding. Addendum entered by Angelia Muniz 09/30/24 13:03: [facility] cannot accept insurance. SW referred to several other agencies via [employer]. Original Note: Social Work IDT met with patient and grdtr for care plan meeting. Discussed patient's progress in PT/OT/SN. Educated to [facility] dual insurance with NRD 10/03 and continued stay is not guaranteed with each review. However, d/t pt's insurance, pt must DC by day 21 on 10/08. Pt is on IV ATB through 10/25. SW educated to TCU not being INN with [facility] and pt can transfer to another SNF to finish ATBs or DC home. Pt elected to DC home. SW inquired about if pt or someone can administer ATB. Pt stated her friend, Ragini Whitaker, is a retired RN and offered to assist. Pt provided contact information. SW to contact to schedule teaching. SW educated to ordering supplies and ATB through [facility]. SW to coordinate skilled [facility] PT/OT/SN. SW offered list of skilled [facility] agencies within geographical area, INN with insurance, that include quality and resource data via [employer] guide. Pt prefers [facility]. SW to refer. Pt inquired about an aide for showers and getting a lift chair. SW explained does not cover those items, but [facility] might. Inquired if pt has a [facility] CM. Pt stated she recalls having one but could not remember the name. SW will attempt to locate. SW to update pt on outcomes. Pt appreciative. - ANSHU phoned referral to [facility]. Sent referral to [facility] via [employer]. Spoke with Ragini Whitaker to schedule IV teaching on 4.2 at 12noon. Spoke with [facility] and pt is not active. SW placed referral for Care Coordination program to get assistance. Plan: DC home alone 10/08, IV ATB > 10/25, [facility] PT/OT/SN Angelia Muniz RESEARCH PHYSICIAN SUPERVISOR [address]
[2024-09-27] MEDS: Lactobacillis Acidophilus 1 CAP PO ×2 (14:38→20:45)
[2024-09-27] MEDS: 0.9% Normal Saline (100mL Bag) 100 ML 15 ML IV (14:39)
[2024-09-27] MEDS: Pramipexole Di-HCl 0.5 MG Tablet PO (17:14)
[2024-09-27] MEDS: Mirtazapine 15 MG Tablet PO (20:44)
[2024-09-27] MEDS: MELATONIN 10 MG TABLET PO (20:45)
[2024-09-27] MEDS: Pramipexole Di-HCl 1 MG Tablet PO (20:46)
[2024-09-27 20:53] VITALS: BP 138/79; PULSE 79
[2024-09-27] MEDS: Gabapentin 600 MG Tablet PO (20:53)
[2024-09-28] MEDS: Acetaminophen 500 MG Tablet 1000 MG PO ×3 (05:42→23:12)
[2024-09-28] MEDS: Menthol/Lanolin/Calamine/Znox 113 GM Tube 1 APPLIC TOPICAL ×2 (09:47→23:14)
[2024-09-28] MEDS: Lactobacillis Acidophilus 1 CAP PO ×2 (09:47→23:10)
[2024-09-28] MEDS: Loperamide 2 MG Capsule PO ×3 (09:47→14:49)
[2024-09-28] MEDS: Aspirin 81 MG TAB.CHEW PO ×2 (09:47→17:01)
[2024-09-28] MEDS: DULoxetine Hcl 30 MG Capsule PO (09:48)
[2024-09-28] MEDS: Losartan Potassium 50 MG Tablet PO ×2 (09:48→23:14)
[2024-09-28 09:49] VITALS: PULSE 80
[2024-09-28] MEDS: Metoprolol Tartrate 25 MG Tablet PO ×2 (09:49→23:14)
[2024-09-28] MEDS: Indapamide 2.5 MG Tablet PO (09:49)
[2024-09-28] MEDS: Famotidine 20 MG Tablet PO (09:49)
[2024-09-28] MEDS: amLODIPine 5 MG Tablet PO ×2 (09:49→23:12)
[2024-09-28] MEDS: buPROPion (XL) 150 MG TABLET.XL PO (09:49)
[2024-09-28] MEDS: rifAMPin 300 MG Capsule PO ×2 (09:49→23:12)
[2024-09-28] MEDS: 0.9% Saline Lock 10 ML Syringe IV ×2 (09:52→23:36)
[2024-09-28] MEDS: Vancomycin HCl 1,250 MG in 0.9% Normal Saline (250mL Bag) 250 ML 167 MG IV (09:57)
[2024-09-28 10:52] VITALS: BP 106/69; PULSE 80; RESP 17; TEMP 36.5; O2SAT 98
--- NOTE | 2024-09-28 12:15 | NURSING ---
Addendum entered by Jorge Valles 09/28/24 12:44: Heparin administered per order, medication effective. Blood return noted. Original Note: No blood return noted from PICC in Left Upper Arm, N.O. per Dr. Sanches for Heparin flush.
[2024-09-28] MEDS: Pramipexole Di-HCl 0.5 MG Tablet PO (17:01)
[2024-09-28 23:10] VITALS: BP 172/96; PULSE 72
[2024-09-28] MEDS: Mirtazapine 15 MG Tablet PO (23:12)
[2024-09-28] MEDS: Pramipexole Di-HCl 1 MG Tablet PO (23:13)
[2024-09-28] MEDS: MELATONIN 10 MG TABLET PO (23:13)
[2024-09-28 23:14] VITALS: BP 172/96; PULSE 72
[2024-09-28] MEDS: Gabapentin 600 MG Tablet PO (23:21)
[2024-09-28 23:41] VITALS: BP 127/77; PULSE 80
[2024-09-29] MEDS: Acetaminophen 500 MG Tablet 1000 MG PO ×3 (06:45→21:05)
[2024-09-29 09:21] VITALS: PULSE 80
[2024-09-29] MEDS: buPROPion (XL) 150 MG TABLET.XL PO (09:21)
[2024-09-29] MEDS: rifAMPin 300 MG Capsule PO ×2 (09:21→21:05)
[2024-09-29] MEDS: Metoprolol Tartrate 25 MG Tablet PO ×2 (09:21→21:04)
[2024-09-29] MEDS: Loperamide 2 MG Capsule PO ×4 (09:21→21:05)
[2024-09-29] MEDS: Aspirin 81 MG TAB.CHEW PO ×2 (09:21→16:32)
[2024-09-29] MEDS: Losartan Potassium 50 MG Tablet PO ×2 (09:21→21:03)
[2024-09-29] MEDS: amLODIPine 5 MG Tablet PO ×2 (09:21→21:04)
[2024-09-29] MEDS: Lactobacillis Acidophilus 1 CAP PO ×2 (09:21→21:03)
[2024-09-29] MEDS: DULoxetine Hcl 30 MG Capsule PO (09:21)
[2024-09-29] MEDS: Famotidine 20 MG Tablet PO (09:21)
[2024-09-29] MEDS: Indapamide 2.5 MG Tablet PO (09:21)
[2024-09-29] MEDS: Menthol/Lanolin/Calamine/Znox 113 GM Tube 1 APPLIC TOPICAL ×2 (09:25→21:05)
[2024-09-29 09:36] LABS: Vancomycin, Trough Level 15.6 ug/mL (5.0-15.0)
--- NOTE | 2024-09-29 10:13 | PCM.RX.CS ---
Consult Antibiotic Management Pharmacy has been consulted to manage selected antibiotic: Vancomycin Type of Intervention Type of Consult: Follow-up Labs Labs: Sodium 139 mmol/L (133-145) 09/26/24 07:12 Potassium 5.0 mmol/L (3.3-5.1) 09/26/24 07:12 Chloride 100 mmol/L (98-108) 09/26/24 07:12 Carbon Dioxide 27.3 mmol/L (21.0-32.0) 09/26/24 07:12 Anion Gap 12 (5-15) 09/26/24 07:12 BUN 29 mg/dL (4-19) H 09/26/24 07:12 Creatinine 1.13 mg/dL (0.70-1.20) 09/26/24 07:12 Est GFR (MDRD) Non-Af 51 (>60) L 09/26/24 07:12 BUN/Creatinine Ratio 25.8 RATIO (10-20) H 09/26/24 07:12 Glucose 100 mg/dL (70-99) H 09/26/24 07:12 Vancomycin Trough 15.6 ug/mL (5.0-15.0) H 09/29/24 08:30 Pharmacy Plan for Drug Dosing Pharmacy Plan for Drug Dosing: VANCOMYCIN LEVEL RECEIVED Current Vancomycin Dose: 1250 MG Q24 Number of Doses Received: many Vancomycin Level: 15.6 mg/dL Hours Since Last Dose: 22.5 Renal Function: SCr 1.13 mg/dL (from 09/26), CrCl 54 mL/min Renal Function Trend: stable Vancomycin Plan/Comments: 22.5 hour trough is slightly supratherapeutic at 15.6mg/dL (goal 10-15). Will continue current dose as trough was only slightly elevated and the level was at 22.5 hours. The level likely would've been in range if trough was closer to 24 hours. Patient has been fairly consistent on this dose. Will repeat a trough in 2 days to make sure level is within range. Pending Level: 10/01/24 @ 0830 Pharmacy Service will continue to monitor and adjust dosing as required.
[2024-09-29] MEDS: Vancomycin HCl 1,250 MG in 0.9% Normal Saline (250mL Bag) 250 ML 167 MG IV (10:28)
[2024-09-29 10:35] VITALS: BP 100/62; PULSE 80; RESP 18; TEMP 36.3; O2SAT 98
[2024-09-29] MEDS: Pramipexole Di-HCl 0.5 MG Tablet PO (16:32)
[2024-09-29 21:00] VITALS: BP 126/81; PULSE 71
[2024-09-29 21:04] VITALS: BP 126/81; PULSE 71
[2024-09-29] MEDS: Pramipexole Di-HCl 1 MG Tablet PO (21:04)
[2024-09-29] MEDS: MELATONIN 10 MG TABLET PO (21:04)
[2024-09-29] MEDS: Gabapentin 600 MG Tablet PO (21:04)
[2024-09-29] MEDS: Mirtazapine 15 MG Tablet PO (21:05)
[2024-09-30] MEDS: Acetaminophen 500 MG Tablet 1000 MG PO ×3 (05:38→22:09)
[2024-09-30] MEDS: 0.9% Saline Lock 10 ML Syringe IV ×2 (05:39→22:10)
[2024-09-30] MEDS: Aspirin 81 MG TAB.CHEW PO ×2 (08:35→16:13)
[2024-09-30] MEDS: Vancomycin HCl 1,250 MG in 0.9% Normal Saline (250mL Bag) 250 ML 167 MG IV (08:40)
[2024-09-30] MEDS: Loperamide 2 MG Capsule PO ×4 (08:40→22:13)
[2024-09-30] MEDS: Lactobacillis Acidophilus 1 CAP PO ×2 (10:06→22:05)
[2024-09-30] MEDS: DULoxetine Hcl 30 MG Capsule PO (10:06)
[2024-09-30] MEDS: amLODIPine 5 MG Tablet PO ×2 (10:07→22:08)
[2024-09-30] MEDS: Senna/Docusate Sodium 1 Tablet PO (10:07)
[2024-09-30] MEDS: Losartan Potassium 50 MG Tablet PO ×2 (10:07→22:06)
[2024-09-30] MEDS: rifAMPin 300 MG Capsule PO ×2 (10:07→22:09)
[2024-09-30] MEDS: Famotidine 20 MG Tablet PO (10:07)
[2024-09-30] MEDS: Indapamide 2.5 MG Tablet PO (10:07)
[2024-09-30 10:08] VITALS: PULSE 88
[2024-09-30] MEDS: buPROPion (XL) 150 MG TABLET.XL PO (10:08)
[2024-09-30] MEDS: Metoprolol Tartrate 25 MG Tablet PO ×2 (10:08→22:07)
[2024-09-30] MEDS: Menthol/Lanolin/Calamine/Znox 113 GM Tube 1 APPLIC TOPICAL ×2 (10:09→22:06)
--- NOTE | 2024-09-30 11:08 | NURSING ---
Spoke with Dr. Ryan about script for antibiotics for DC. He will come by this week and write script. Updated SW.
[2024-09-30 14:05] VITALS: BP 132/82; PULSE 71; RESP 16; TEMP 35.9; O2SAT 95
[2024-09-30] MEDS: Pramipexole Di-HCl 0.5 MG Tablet PO (16:12)
[2024-09-30 21:00] VITALS: PULSE 74; O2SAT 96
[2024-09-30 22:01] VITALS: BP 150/82; PULSE 75
[2024-09-30 22:07] VITALS: BP 150/82; PULSE 75
[2024-09-30] MEDS: Pramipexole Di-HCl 1 MG Tablet PO (22:08)
[2024-09-30] MEDS: MELATONIN 10 MG TABLET PO (22:08)
[2024-09-30] MEDS: Mirtazapine 15 MG Tablet PO (22:09)
[2024-09-30] MEDS: Gabapentin 600 MG Tablet PO (22:13)
[2024-10-01] VITALS (7 sets, daily range): BP systolic 121–169; BP diastolic 72–91; PULSE 74–89; RESP 16–18; TEMP 36–36.4; O2SAT 94–98; BMI 36.8
[2024-10-01] MEDS: Acetaminophen 500 MG Tablet 1000 MG PO ×3 (05:34→21:35)
[2024-10-01] MEDS: Aspirin 81 MG TAB.CHEW PO ×2 (08:52→16:33)
[2024-10-01] MEDS: DULoxetine Hcl 30 MG Capsule PO (08:53)
[2024-10-01] MEDS: Famotidine 20 MG Tablet PO (08:54)
[2024-10-01] MEDS: buPROPion (XL) 150 MG TABLET.XL PO (08:55)
[2024-10-01] MEDS: Loperamide 2 MG Capsule PO ×2 (08:55→13:36)
[2024-10-01] MEDS: Losartan Potassium 50 MG Tablet PO ×2 (08:55→21:35)
[2024-10-01] MEDS: Lactobacillis Acidophilus 1 CAP PO ×2 (08:56→21:35)
[2024-10-01] MEDS: amLODIPine 5 MG Tablet PO ×2 (08:57→21:35)
[2024-10-01] MEDS: Indapamide 2.5 MG Tablet PO (08:57)
[2024-10-01] MEDS: Metoprolol Tartrate 25 MG Tablet PO ×2 (08:58→21:35)
[2024-10-01 09:02] LABS: Vancomycin, Trough Level 13.2 ug/mL (5.0-15.0)
[2024-10-01] MEDS: rifAMPin 300 MG Capsule PO ×2 (09:06→21:35)
--- NOTE | 2024-10-01 09:13 | PCM.RX.CS ---
Consult Antibiotic Management Pharmacy has been consulted to manage selected antibiotic: Vancomycin Type of Intervention Type of Consult: Follow-up Suspected Infection Suspected Infection: Skin/Soft tissue Prior Doses of Antibiotics Prior Doses of Antibiotics Received/Current Regimen: Vancomycin 1250 mg IV Q24H last dose given 09/30 @ 0840 Labs Labs: Sodium 139 mmol/L (133-145) 09/26/24 07:12 Potassium 5.0 mmol/L (3.3-5.1) 09/26/24 07:12 Chloride 100 mmol/L (98-108) 09/26/24 07:12 Carbon Dioxide 27.3 mmol/L (21.0-32.0) 09/26/24 07:12 Anion Gap 12 (5-15) 09/26/24 07:12 BUN 29 mg/dL (4-19) H 09/26/24 07:12 Creatinine 1.13 mg/dL (0.70-1.20) 09/26/24 07:12 Est GFR (MDRD) Non-Af 51 (>60) L 09/26/24 07:12 BUN/Creatinine Ratio 25.8 RATIO (10-20) H 09/26/24 07:12 Glucose 100 mg/dL (70-99) H 09/26/24 07:12 Vancomycin Trough 13.2 ug/mL (5.0-15.0) 10/01/24 08:20 Dosing Weight Weight used for dosin kg Estimated Creatinine Clearance Estimated Creatinine Clearance: ~ 54 Goal Trough Goal Trough: 10-15 mcg/mL Pharmacy Plan for Drug Dosing Pharmacy Plan for Drug Dosing: Vancomycin trough = 13.2, continue current dosing. Pharmacy Service will continue to monitor and adjust dosing as required. Follow-Up Labs Follow-Up Labs: Trough: Vancomycin Date/Time Labs Ordered Labs to be done on [date and time ordered]: 10/06 @ 0817
--- NOTE | 2024-10-01 09:16 | NURSING ---
pharmacy was called to inform of waiting on 9 am vanc dose.
--- NOTE | 2024-10-01 09:19 | CASEMGMT ---
Addendum entered by Angelia Muinz 10/01/24 09:49: SW confirmed with [facility] SOC 10/08 prior to dosing at 12 noon. [facility] is also aware. Original Note: Social Work SW followed up with [facility] on IV ATB supplies. Cost is $12.35 weekly as [facility] is [facility] only. [facility] to contact pt to review costs and delivery. - SW spoke with pt to update. Explained since pt has [facility] only, that is why pt does not have a [facility] CM. Pt did [facility], and once assessed, she will see if she gets any services. Angelia Muniz RN LICENSED PRACTICAL FILM HISTORIAN
[2024-10-01] MEDS: Vancomycin HCl 1,250 MG in 0.9% Normal Saline (250mL Bag) 250 ML 167 MG IV (10:08)
[2024-10-01] MEDS: 0.9% Saline Lock 10 ML Syringe IV ×4 (10:08→21:41)
[2024-10-01] MEDS: Vancomycin Trough/Random Due 1 LAB MC (10:15)
--- NOTE | 2024-10-01 13:20 | MDS.RN ---
Information for the MDS was obtained from review of the clinical record, interview of resident, staff, and direct observation of resident?s care.
--- NOTE | 2024-10-01 15:58 | NURSING ---
charting reviewed with student that is used for educational and learning purposes.
[2024-10-01] MEDS: Pramipexole Di-HCl 0.5 MG Tablet PO (16:33)
--- NOTE | 2024-10-01 19:56 | DS.PCM_ITS ---
Providers Date of Admission: 09/18/24 Primary Care Physician: Dr. Kamar Grimes MD Consultations 09/18/24 20:57 Consult: Infectious Disease Routine Consulting Provider: Tru Andrade Reason for Consult: Left shoulder periprosthetic infection mssa/mrsa s/p cleanout. 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 Cavanaugh, postoperative course complicated by acute respiratory failure with hypoxia, admitted to TCU with debility, here for rehabilitation, strengthening, intravenous antbiotics, prior to discharge home alone. * Debility - PT/OT. * Pain - Tylenol 1000mg q8, Oxycodone 5-10mg q4h prn. * Bowel - senna/colace 1 tablet daily, Dulcolax 10mg pr daily prn, Magnesium citrate 300mL po x 1 prn, Loperamide 2mg q2h prn. * Adult immunization - Administer pneumonia vaccine, covid vaccine, flu vaccine as appropriate. * DVT prophylaxis - Aspirin 81mg bid thru 09/28/2024. * Hypertension - Metoprolol 25mg bid, Amlodipine 5mg bid, Losartan 50mg bid, Indapamide 2.5mg daily. * Depression - Bupropion XL 150mg daily, Duloxetine 30mg daily, Mirtazapine 15mg qhs, stable chronic senior care use, GDR not recommended. * Dry eyes - Artificial tears 2gtt ou q1h prn. * GERD - Famotidine 20mg daily. * Neuropathic pain - Gabapentin 600mg qhs. * Insomnia - Melatonin 10mg qhs. * Skin irritation - Calmoseptine topical bid. * Restless leg syndrome - Mirapex 0.5mg dinner, 1mg qhs. 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 Andrade for expert care. * Gas - Simethicone 80mg tid prn. Medications at Discharge Home Medications losartan 50 mg tablet 50 mg PO BID BP 09/19/14 melatonin 5 mg tablet 10 mg PO QHS INSOMNIA 09/19/14 indapamide 1.25 mg tablet 2.5 mg PO DAILY BP 04/12/17 pramipexole 0.5 mg tablet (Mirapex) 1 mg PO QHS RLS 04/12/17 bupropion HCl 300 mg 24 hr tablet, extended release 150 mg PO DAILY DEPRESSION 06/11/20 gabapentin 600 mg tablet 600 mg PO QHS SLEEP 06/11/20 mirtazapine 15 mg tablet 15 mg PO QHS INSOMNIA 06/24/20 amlodipine 10 mg tablet 5 mg PO BID BP 09/11/24 duloxetine 30 mg capsule,delayed release (Cymbalta) 30 mg PO DAILY DEPRESSION 09/11/24 pramipexole 0.5 mg tablet 0.5 mg PO DINNER RLS 09/11/24 rifampin 300 mg capsule 300 mg PO BID antibiotic 39 days #78 caps 09/16/24 vancomycin 1 gram/200 mL in dextrose 5 % intravenous piggyback 1,000 mg IV Q24H infection 39 days #3,900 mL 09/16/24 acetaminophen 500 mg tablet 1,000 mg (2 x 500 mg) PO Q8 pain #1 TAB 09/17/24 aspirin 81 mg chewable tablet 81 mg PO BID blood thinner #0 tabs 09/17/24 famotidine 20 mg tablet 20 mg PO DAILY reflux #0 tabs 09/17/24 loperamide 2 mg capsule 2 mg PO Q2H PRN PRN DIARRHEA #0 caps 09/17/24 metoprolol tartrate 25 mg tablet 25 mg PO BID pulse/BP #0 tabs 09/17/24 sennosides 8.6 mg-docusate sodium 50 mg tablet (Stimulant Laxative Plus) 1 tab PO DAILY stool softener #0 tabs 09/17/24 simethicone 40 mg/0.6 mL oral drops,suspension (Infants Simethicone) 80 mg (1.2 mL) PO TID PRN Gas #0 mL 09/17/24 Hospital Course Operations - (See below.) Procedures None Summary of Care Provided Minutes Spent on Discharge: 35 Hospital Course: 74 year old female with below past medical history hospitalized for left shoulder periprosthetic joint infection, underwent irrigation debridement complete synovectomy, revision left reverse total shoulder replacement 09/13/[address] Cavanaugh, postoperative course complicated by acute respiratory failure with hypoxia, admitted to TCU with debility, here for rehabilitation, strengthening, intravenous antibiotics, prior to discharge home alone. Discharge home 10/08/2024, IV ATB thru 10/25/2024, [facility] PT/SN. Physical Exam Const alert General Appearance: cooperative HEENT normocephalic Eyes PERRL and EOMs intact bilaterally Neck supple, no JVD and no carotid bruits Resp normal respiratory effort, normal air movement and clear to auscultation bilaterally Cardio regular rate and regular rhythm GI normal to inspection, nondistended, normoactive bowel sounds, non-tender and non-distended Extremity normal capillary refill Extremity Narrative: RUE PICC line, LUE sling/immobilizer. General Extremity: Negative for edema Skin no rashes or lesions noted General Skin Exam: no breakdown Psych affect normal Appearance: appropriate Weight / BMI Weight Weight: 106.594 kg Body Mass Index (BMI) 36.8 ABG / Lab / Microbiology Data 09/26/24 07:12 09/26/24 07:12 Laboratory: Laboratory Results - last 24 hr 10/01/24 08:20: Vancomycin Trough 13.2 D/C Instructions Discharge Diet: No restrictions Discharge Activity: Return to Normal Activity, May Shower and Use Walker Weight Bearing Status: No weight bearing (Left upper extremity.) Call your doctor if you observe: Fever of 101 or Higher, Inability to urinate, Inability to have a bowel movement, Shortness of breath, Dizziness, Fainting spells, Swelling in the ankles, Chest pain and Uncontrolled pain DC O2, CPAP, BIPAP Needs Home O2 Discharge instructions: No Additional Instructions: Discharge home 10/08/2024, IV ATB thru 10/25/2024, [facility] PT/SN. Please Follow Up With: Fahad Cavanaugh MD When: As scheduled. Meaningful Use Info Meaningful Use Meaningful Use Diagnoses (Choose all that apply): None applicable Ischemic Stroke Statin Dosing Therapy Reference: STATIN DOSE THERAPY REFERENCE: * Patients > 75 years receive moderate or high dose statin therapy. * Patients 75 years or YOUNGER should receive HIGH intensity statin dose unless contraindicated. You will be required to document reason for non-treatment if statin daily dose does not meet guidelines. HIGH DOSE STATIN THERAPY DAILY Atorvastatin > than or = to 40 mg Rosuvastatin > than or = to 20 mg Amlodipine + Atorvastatin > than or = to 2.5/40 mg Ezetimibe + Simvastatin 10/80 mg Simvastatin 80mg Discharge Plan Admission Admit Date/Time: 09/18/24 12:40 Primary Reason for Your Visit: Debility. Attending Provider: Rodrigo Sanches Chi Primary Care Provider: Kamar Grimes Consulting Providers: Tru Andrade Instructions Additional Instructions / Restrictions: Discharge home 10/08/2024, IV ATB thru 10/25/2024, [facility] PT/SN. Discharge Orders/Prescriptions Prescriptions: Continued losartan 50 MG tablet 50 mg PO BID Patient Comments: BLOOD PRESSURE melatonin 5 MG tablet 10 mg PO QHS Patient Comments: SLEEP pramipexole [Mirapex] 0.5 MG tablet 1 mg PO QHS Patient Comments: RESTLESS LEGS indapamide 1.25 MG tablet 2.5 mg PO DAILY gabapentin 600 MG tablet 600 mg PO QHS bupropion HCl 300 MG tablet extended release 24 hr 150 mg PO DAILY mirtazapine 15 MG tablet 15 mg PO QHS pramipexole 0.5 mg tablet 0.5 mg PO DINNER amlodipine 10 mg tablet 5 mg PO BID duloxetine [Cymbalta] 30 mg capsule,delayed release(DR/EC) 30 mg PO DAILY loperamide 2 mg Capsule 2 mg PO Q2H PRN PRN (Reason: DIARRHEA) Qty: 0 0RF acetaminophen 500 mg Tablet 1,000 mg PO Q8 Qty: 1 0RF famotidine 20 mg Tablet 20 mg PO DAILY Qty: 0 0RF aspirin 81 mg Tablet,Chewable 81 mg PO BID Qty: 0 0RF metoprolol tartrate 25 mg Tablet 25 mg PO BID Qty: 0 0RF sennosides-docusate sodium [Stimulant Laxative Plus] 8.6-50 mg Tablet 1 tab PO DAILY Qty: 0 0RF simethicone [Infants Simethicone] 40 mg/0.6 mL Drops,Suspension 80 mg PO TID PRN (Reason: Gas) Qty: 0 0RF Discontinued oxycodone 5 mg Tablet 5 - 10 mg PO Q4H PRN PRN (Reason: Pain Score 4-10) 2 Days Qty: 10 0RF No Action vancomycin in dextrose 5 % 1 gram/200 mL Piggyback 1,000 mg IV Q24H 39 Days Qty: 3900 0RF Rx Instructions: stop date 10/25/24. Dx: shoulder PJI. weekly bmp, cbc, vanc trough, and esr. Fax to [phone]. Routine picc care per protocol. rifampin 300 mg Capsule 300 mg PO BID 39 Days Qty: 78 0RF Referrals / Follow Up: Kamar Grimes MD [Primary Care Provider] - Fahad Cavanaugh MD [Med Staff - Active Staff] - 10/25/24 10:30 am Disposition Disposition (needs filled in before D/C Order can be placed): Home Health Service
[2024-10-01] MEDS: MELATONIN 10 MG TABLET PO (21:35)
[2024-10-01] MEDS: Gabapentin 600 MG Tablet PO (21:35)
[2024-10-01] MEDS: Mirtazapine 15 MG Tablet PO (21:35)
[2024-10-01] MEDS: Pramipexole Di-HCl 1 MG Tablet PO (21:35)
[2024-10-02] MEDS: Acetaminophen 500 MG Tablet 1000 MG PO ×3 (06:10→22:13)
--- NOTE | 2024-10-02 07:30 | NURSING ---
10/01/24- around noon Ragini and other friends in room asking about IV antibiotics at home. They asked if they would be giving the med, under the impression home health would. Discussed that home health would come in and provide education but the goal would be for patient/friends to become comfortable administering. Discussed that nursing unsure exactly what supplies will be sent to her home, but that nursing could go over flushing so they are comfortable with that process and management of PICC. Reviewed flushing protocol with Ragini and other friend. Ragini watched while RN walked friend through opening and preparing saline flush, removing cap and scrubbing needleless port, checking for blood return, and flushing using the push pause method. Educated to always keep disinfecting cap on end of line when not in use. Friend admitted she would need more practice. Let her know nursing on unit and home health could continue to provide education and practice. Patient and friends denied any other questions at that time.
[2024-10-02] MEDS: Loperamide 2 MG Capsule PO ×3 (08:36→14:10)
[2024-10-02] MEDS: Aspirin 81 MG TAB.CHEW PO ×2 (08:37→17:12)
[2024-10-02] MEDS: Losartan Potassium 50 MG Tablet PO ×2 (08:38→22:11)
[2024-10-02] MEDS: Lactobacillis Acidophilus 1 CAP PO ×2 (08:38→22:10)
[2024-10-02] MEDS: DULoxetine Hcl 30 MG Capsule PO (08:39)
[2024-10-02 08:40] VITALS: BP 114/77; PULSE 89
[2024-10-02] MEDS: Indapamide 2.5 MG Tablet PO (08:40)
[2024-10-02] MEDS: amLODIPine 5 MG Tablet PO ×2 (08:40→22:13)
[2024-10-02] MEDS: Metoprolol Tartrate 25 MG Tablet PO ×2 (08:40→22:11)
[2024-10-02] MEDS: rifAMPin 300 MG Capsule PO ×2 (08:41→22:13)
[2024-10-02] MEDS: buPROPion (XL) 150 MG TABLET.XL PO (08:41)
[2024-10-02] MEDS: Famotidine 20 MG Tablet PO (08:41)
[2024-10-02 08:46] VITALS: BP 114/77; PULSE 89; RESP 18; O2SAT 96
[2024-10-02] MEDS: 0.9% Saline Lock 10 ML Syringe IV ×2 (10:38→22:20)
[2024-10-02] MEDS: Vancomycin HCl 1,250 MG in 0.9% Normal Saline (250mL Bag) 250 ML 167 MG IV (10:42)
[2024-10-02] MEDS: 0.9% Normal Saline (100mL Bag) 100 ML 15 ML IV (13:06)
[2024-10-02 13:08] VITALS: TEMP 36.2
[2024-10-02 15:05] VITALS: PULSE 86; RESP 18; O2SAT 95
[2024-10-02] MEDS: Pramipexole Di-HCl 0.5 MG Tablet PO (17:11)
[2024-10-02 22:08] VITALS: BP 129/86; PULSE 75
[2024-10-02 22:11] VITALS: BP 129/86; PULSE 75
[2024-10-02] MEDS: Pramipexole Di-HCl 1 MG Tablet PO (22:12)
[2024-10-02] MEDS: MELATONIN 10 MG TABLET PO (22:12)
[2024-10-02] MEDS: Mirtazapine 15 MG Tablet PO (22:13)
[2024-10-02] MEDS: Gabapentin 600 MG Tablet PO (22:17)
[2024-10-03] MEDS: Acetaminophen 500 MG Tablet 1000 MG PO ×3 (05:32→21:12)
[2024-10-03 07:36] LABS: Basophil# 0.04 X10^3/uL; Basophil% 0.8 % (0-1); Eosinophil# 0.29 X10^3/uL; Eosinophils% 5.5 % (0-5); Hematocrit 37.3 % (37-47); Hemoglobin 11.9 g/dL (12.0-15.0); Lymphocyte % 22.7 % (19-41); Mean Corp Hgb Conc 31.9 g/dL (32-36); Mean Corpuscular Hgb 29.2 pg (27.0-32.0); Mean Corpuscular Volume 91.6 fL (81-99); Mean Platelet Vol. 10.3 fl (6.2-12.0); Monocyte# 0.71 X10^3/uL; Monocyte% 13.4 % (0-10); NRBC Flagged by Analyzer 0 % (0-5); Neutrophil # 3.01 X10^3/uL (2.7-7.7); Platelet Count 247 K/mm3 (150-450); RBC Distribution Width SD 50.2 fl (35.1-43.9); Red Blood Count 4.07 M/mm3 (4.2-5.4); White Blood Count 5.3 K/mm3 (4.4-11.0)
[2024-10-03] MEDS: Loperamide 2 MG Capsule PO ×2 (08:07→13:15)
[2024-10-03] MEDS: Aspirin 81 MG TAB.CHEW PO ×2 (08:08→16:49)
[2024-10-03] MEDS: Lactobacillis Acidophilus 1 CAP PO ×2 (08:10→21:11)
[2024-10-03 08:11] VITALS: BP 168/101; PULSE 85
[2024-10-03] MEDS: Metoprolol Tartrate 25 MG Tablet PO ×2 (08:11→21:10)
[2024-10-03] MEDS: Losartan Potassium 50 MG Tablet PO ×2 (08:11→21:11)
[2024-10-03] MEDS: amLODIPine 5 MG Tablet PO ×2 (08:12→21:11)
[2024-10-03] MEDS: rifAMPin 300 MG Capsule PO ×2 (08:12→21:11)
[2024-10-03] MEDS: DULoxetine Hcl 30 MG Capsule PO (08:12)
[2024-10-03] MEDS: Indapamide 2.5 MG Tablet PO (08:12)
[2024-10-03] MEDS: Famotidine 20 MG Tablet PO (08:12)
[2024-10-03] MEDS: buPROPion (XL) 150 MG TABLET.XL PO (08:13)
[2024-10-03 08:15] LABS: Anion Gap 11 (5-15); BUN 27 mg/dL (4-19); BUN/Creat Ratio 24.6 RATIO (10-20); Calcium,Total 9.2 mg/dL (7.6-11.0); Carbon Dioxide 27.3 mmol/L (21.0-32.0); Chloride 100 mmol/L (98-108); Creatinine, Serum 1.09 mg/dL (0.70-1.20); EST Glomerular Filtration Rate 53 (>60); Estimated Creatinine Clearance 56.04 ml/min (50-250); Glucose 96 mg/dL (70-99); Potassium 4.4 mmol/L (3.3-5.1); Sodium Level 139 mmol/L (133-145)
[2024-10-03 08:21] VITALS: BP 168/101; PULSE 85; RESP 18; O2SAT 95
[2024-10-03 09:38] VITALS: BP 110/69; PULSE 78
[2024-10-03] MEDS: Vancomycin HCl 1,250 MG in 0.9% Normal Saline (250mL Bag) 250 ML 167 MG IV (09:58)
[2024-10-03] MEDS: 0.9% Saline Lock 10 ML Syringe IV ×3 (10:01→21:14)
[2024-10-03 11:20] VITALS: PULSE 78; RESP 18; O2SAT 93
--- NOTE | 2024-10-03 11:37 | CASEMGMT ---
Social Work SUE Nam Am[employer]ia Refrigeration Worker, present to see pt for assess for care coordination program. Provided Dada requested clinicals and hx about pt. Dada plans to assist with bath aides, ERS, and MOW. Angelia Muniz [employer]IST
[2024-10-03 15:58] VITALS: TEMP 36.3
[2024-10-03] MEDS: Pramipexole Di-HCl 0.5 MG Tablet PO (16:50)
[2024-10-03] MEDS: Gabapentin 600 MG Tablet PO (21:06)
[2024-10-03 21:10] VITALS: BP 125/81; PULSE 86
[2024-10-03] MEDS: Pramipexole Di-HCl 1 MG Tablet PO (21:11)
[2024-10-03] MEDS: MELATONIN 10 MG TABLET PO (21:12)
[2024-10-03] MEDS: Mirtazapine 15 MG Tablet PO (21:12)
[2024-10-04] MEDS: Loperamide 2 MG Capsule PO ×3 (05:18→17:14)
[2024-10-04] MEDS: Acetaminophen 500 MG Tablet 1000 MG PO ×3 (05:18→22:13)
[2024-10-04 08:40] VITALS: BP 139/60; PULSE 83; RESP 16; TEMP 35.9; O2SAT 97
[2024-10-04] MEDS: Lactobacillis Acidophilus 1 CAP PO ×2 (08:42→22:09)
[2024-10-04] MEDS: Aspirin 81 MG TAB.CHEW PO ×2 (08:42→17:14)
[2024-10-04] MEDS: Losartan Potassium 50 MG Tablet PO ×2 (08:42→22:11)
[2024-10-04] MEDS: buPROPion (XL) 150 MG TABLET.XL PO (08:42)
[2024-10-04 08:43] VITALS: PULSE 83
[2024-10-04] MEDS: amLODIPine 5 MG Tablet PO ×2 (08:43→22:14)
[2024-10-04] MEDS: Indapamide 2.5 MG Tablet PO (08:43)
[2024-10-04] MEDS: Metoprolol Tartrate 25 MG Tablet PO ×2 (08:43→22:11)
[2024-10-04] MEDS: DULoxetine Hcl 30 MG Capsule PO (08:43)
[2024-10-04] MEDS: Famotidine 20 MG Tablet PO (08:43)
[2024-10-04] MEDS: rifAMPin 300 MG Capsule PO ×2 (08:44→22:13)
[2024-10-04] MEDS: 0.9% Saline Lock 10 ML Syringe IV ×2 (08:44→22:15)
[2024-10-04] MEDS: Vancomycin HCl 1,250 MG in 0.9% Normal Saline (250mL Bag) 250 ML 167 MG IV (08:44)
[2024-10-04] MEDS: 0.9% Normal Saline (100mL Bag) 100 ML 15 ML IV (08:48)
--- NOTE | 2024-10-04 13:34 | NURSING ---
dr Ryan here & wrote scipts from IV Vanc and PO rifampin.
[2024-10-04 14:54] VITALS: PULSE 80; RESP 17; O2SAT 97
[2024-10-04] MEDS: Pramipexole Di-HCl 0.5 MG Tablet PO (17:14)
[2024-10-04 22:08] VITALS: BP 151/80; PULSE 80
[2024-10-04] MEDS: Gabapentin 600 MG Tablet PO (22:09)
[2024-10-04] MEDS: MELATONIN 10 MG TABLET PO (22:10)
[2024-10-04 22:11] VITALS: BP 151/80; PULSE 80
[2024-10-04] MEDS: Pramipexole Di-HCl 1 MG Tablet PO (22:13)
[2024-10-04] MEDS: Mirtazapine 15 MG Tablet PO (22:14)
[2024-10-05] MEDS: Acetaminophen 500 MG Tablet 1000 MG PO ×3 (05:18→22:04)
[2024-10-05] MEDS: Loperamide 2 MG Capsule PO ×2 (08:55→14:01)
[2024-10-05] MEDS: Aspirin 81 MG TAB.CHEW PO ×2 (08:56→16:31)
[2024-10-05] MEDS: Lactobacillis Acidophilus 1 CAP PO ×2 (08:57→22:03)
[2024-10-05] MEDS: Losartan Potassium 50 MG Tablet PO ×2 (08:57→22:04)
[2024-10-05 08:58] VITALS: BP 108/66; PULSE 90
[2024-10-05] MEDS: DULoxetine Hcl 30 MG Capsule PO (08:58)
[2024-10-05] MEDS: Metoprolol Tartrate 25 MG Tablet PO ×2 (08:58→22:03)
[2024-10-05] MEDS: Indapamide 2.5 MG Tablet PO (08:59)
[2024-10-05] MEDS: amLODIPine 5 MG Tablet PO ×2 (08:59→22:03)
[2024-10-05] MEDS: Famotidine 20 MG Tablet PO (08:59)
[2024-10-05] MEDS: buPROPion (XL) 150 MG TABLET.XL PO (09:00)
[2024-10-05] MEDS: rifAMPin 300 MG Capsule PO ×2 (09:00→22:04)
[2024-10-05] MEDS: 0.9% Saline Lock 10 ML Syringe IV ×2 (09:05→22:11)
[2024-10-05] MEDS: Vancomycin HCl 1,250 MG in 0.9% Normal Saline (250mL Bag) 250 ML 167 MG IV (09:08)
[2024-10-05 09:17] VITALS: BP 108/66; PULSE 90; RESP 18; TEMP 36.5; O2SAT 93
[2024-10-05] MEDS: 0.9% Normal Saline (100mL Bag) 100 ML 15 ML IV (10:59)
[2024-10-05] MEDS: Pramipexole Di-HCl 0.5 MG Tablet PO (16:31)
[2024-10-05 22:03] VITALS: BP 169/101; PULSE 71
[2024-10-05] MEDS: Pramipexole Di-HCl 1 MG Tablet PO (22:03)
[2024-10-05] MEDS: Mirtazapine 15 MG Tablet PO (22:04)
[2024-10-05] MEDS: MELATONIN 10 MG TABLET PO (22:04)
[2024-10-05] MEDS: Gabapentin 600 MG Tablet PO (22:08)
[2024-10-05 22:25] VITALS: RESP 18
[2024-10-06] MEDS: Acetaminophen 500 MG Tablet 1000 MG PO ×3 (05:45→21:42)
[2024-10-06] MEDS: Loperamide 2 MG Capsule PO ×3 (05:48→16:51)
[2024-10-06] MEDS: Aspirin 81 MG TAB.CHEW PO ×2 (07:53→16:49)
[2024-10-06] MEDS: Lactobacillis Acidophilus 1 CAP PO ×2 (07:56→21:42)
[2024-10-06 07:57] VITALS: BP 189/100; PULSE 74
[2024-10-06] MEDS: Metoprolol Tartrate 25 MG Tablet PO ×2 (07:57→21:42)
[2024-10-06] MEDS: rifAMPin 300 MG Capsule PO ×2 (07:58→21:42)
[2024-10-06] MEDS: buPROPion (XL) 150 MG TABLET.XL PO (07:58)
[2024-10-06] MEDS: Famotidine 20 MG Tablet PO (07:59)
[2024-10-06] MEDS: amLODIPine 5 MG Tablet PO ×2 (07:59→21:42)
[2024-10-06] MEDS: Indapamide 2.5 MG Tablet PO (08:00)
[2024-10-06] MEDS: DULoxetine Hcl 30 MG Capsule PO (08:01)
[2024-10-06] MEDS: Losartan Potassium 50 MG Tablet PO ×2 (08:01→21:42)
[2024-10-06 08:06] VITALS: BP 189/100; PULSE 74; RESP 18; TEMP 36.4; O2SAT 92
--- NOTE | 2024-10-06 08:07 | NURSING ---
PT SITTING ON SIDE OF BED EATING BREAKFAST. THIS NURSE IN TO GIVE MEDS AND CHECK BP ETC. PT BP HIGH,ASKED PT IF SHE WAS IN PAIN PT STATED NO SHREE JUST REALLY STRESSED CAUSE I HAVE NO MONEY TO PAY MY BILLS AND MY BLOOD PRESSURE DOES GO HIGH AT TIMES. THIS NURSE DID 1 ON WITH PT AND GAVE ALL BP MEDS DUE AT 10AM NOW AND ASKED PT TO REST AFTER EATING AND NOT WALK AROUND AND THIS NURSE WILL BE BACK TO RECHECK BP. PT AGREED. STATED TO PT TO CALL IF SHE NEEDED ANY THING. WILL CONTINUE TO MONITOR.
[2024-10-06 09:20] LABS: Vancomycin, Trough Level 13.6 ug/mL (5.0-15.0)
[2024-10-06 09:44] VITALS: BP 132/71; PULSE 70
--- NOTE | 2024-10-06 09:56 | PCM.RX.CS ---
Consult Antibiotic Management Pharmacy has been consulted to manage selected antibiotic: Vancomycin Type of Intervention Type of Consult: Follow-up Prior Doses of Antibiotics Prior Doses of Antibiotics Received/Current Regimen: current dose is vanc 1250mg IV q24h Labs Labs: Sodium 139 mmol/L (133-145) 10/03/24 06:33 Potassium 4.4 mmol/L (3.3-5.1) 10/03/24 06:33 Chloride 100 mmol/L (98-108) 10/03/24 06:33 Carbon Dioxide 27.3 mmol/L (21.0-32.0) 10/03/24 06:33 Anion Gap 11 (5-15) 10/03/24 06:33 BUN 27 mg/dL (4-19) H 10/03/24 06:33 Creatinine 1.09 mg/dL (0.70-1.20) 10/03/24 06:33 Est GFR (MDRD) Non-Af 53 (>60) L 10/03/24 06:33 BUN/Creatinine Ratio 24.6 RATIO (10-20) H 10/03/24 06:33 Glucose 96 mg/dL (70-99) 10/03/24 06:33 Vancomycin Trough 13.6 ug/mL (5.0-15.0) 10/06/24 08:31 Dosing Weight Weight used for dosin kg Estimated Creatinine Clearance Estimated Creatinine Clearance: 56ml/min Goal Trough Goal Trough: 10-15 mcg/mL Pharmacy Plan for Drug Dosing Pharmacy Plan for Drug Dosing: The vanc trough drawn at 08:31 today (approx 23.5 hours after the last dose) was 13.6 mcg/ml. This is in goal range again so will keep same dose. Repeat a trough in 5 days. Pharmacy Service will continue to monitor and adjust dosing as required. Follow-Up Labs Follow-Up Labs: Trough: Vancomycin Date/Time Labs Ordered Labs to be done on [date and time ordered]: 10/11/24 08:30
[2024-10-06] MEDS: 0.9% Saline Lock 10 ML Syringe IV ×2 (09:58→21:58)
[2024-10-06 10:00] VITALS: PULSE 72; RESP 18; O2SAT 93
[2024-10-06] MEDS: Vancomycin HCl 1,250 MG in 0.9% Normal Saline (250mL Bag) 250 ML 167 MG IV (10:00)
--- NOTE | 2024-10-06 10:15 | NURSING ---
TALKED TO PT ABOUT HER CONCERNS ABOUT PAYING HER BILLS AND ASKED PT IF SHE WOULD BE WILLING TO TALK TO THE SCREEN TENDER HELPER WHO MAY BE ABLE TO HELP HER WITH THAT. PT AGREED AND STATED THANK YOU. RN AWARE AND MESSAGE LEFT WITH LUÍSSCREEN TENDER HELPER.
[2024-10-06] MEDS: CARBOXYMETHYLCELLULOSE SODIUM 15 ML OPHTH DROPS 2 DRP EACH EYE ×3 (15:11→21:47)
[2024-10-06] MEDS: Pramipexole Di-HCl 0.5 MG Tablet PO (16:49)
--- NOTE | 2024-10-06 16:52 | NURSING ---
PT EYES ARE IRRITATED AND RED. COOL WASH CLOTH TO EYES AND PRN REFRESH TEARS GIVEN.
[2024-10-06 21:38] VITALS: BP 162/89; PULSE 85; RESP 18; O2SAT 94
[2024-10-06 21:42] VITALS: PULSE 85
[2024-10-06] MEDS: Pramipexole Di-HCl 1 MG Tablet PO (21:42)
[2024-10-06] MEDS: MELATONIN 10 MG TABLET PO (21:42)
[2024-10-06] MEDS: Gabapentin 600 MG Tablet PO (21:42)
[2024-10-06] MEDS: Mirtazapine 15 MG Tablet PO (21:42)
--- NOTE | 2024-10-06 22:22 | NURSING ---
Addendum entered by Huyen Parekh 10/07/24 04:05: After first dose of medrol dose pack and vistaril redness has improved. Patient stated, my eyes feel way better and they don't itch bilateral eyelids noted to be crusted shut, patient denies vision changes and stated symptoms have improved. Original Note: Upon assessment patient's sclera and surrounding skin observed to be red and irritated, patient stated, the itching is driving me crazy. Per patient she woke up this morning with the redness and itching and it has gotten worse throughout the day. Patient was given PRN refresh tears and a cool washcloth during the day but this has been ineffective. This nurse contacted Dr. Sanches via telephone. New orders for a medrol dose pack to start now, stop the vancomycin and contact infectious disease in the morning regarding vancomycin dosing, and PRN vistaril 25mg PRN Q6HR for itching. TORB. Patient updated on POC.
[2024-10-06] MEDS: hydrOXYzine PAM 25 MG Capsule PO (22:42)
[2024-10-06] MEDS: MethylPREDNISolone DosePak 4 MG BOX PO (23:24)
[2024-10-07] MEDS: Acetaminophen 500 MG Tablet 1000 MG PO ×3 (05:20→21:38)
[2024-10-07] MEDS: Loperamide 2 MG Capsule PO ×4 (05:20→21:44)
[2024-10-07 09:15] VITALS: BP 136/108; PULSE 116
[2024-10-07] MEDS: Lactobacillis Acidophilus 1 CAP PO ×2 (09:15→21:34)
[2024-10-07] MEDS: Aspirin 81 MG TAB.CHEW PO ×2 (09:15→16:51)
[2024-10-07] MEDS: Metoprolol Tartrate 25 MG Tablet PO ×2 (09:15→21:36)
[2024-10-07] MEDS: DULoxetine Hcl 30 MG Capsule PO (09:15)
[2024-10-07] MEDS: Indapamide 2.5 MG Tablet PO (09:15)
[2024-10-07] MEDS: amLODIPine 5 MG Tablet PO ×2 (09:15→21:37)
[2024-10-07] MEDS: rifAMPin 300 MG Capsule PO ×2 (09:16→21:36)
[2024-10-07] MEDS: buPROPion (XL) 150 MG TABLET.XL PO (09:16)
[2024-10-07] MEDS: Famotidine 20 MG Tablet PO (09:16)
[2024-10-07] MEDS: Losartan Potassium 50 MG Tablet PO ×2 (09:17→21:35)
[2024-10-07] MEDS: CARBOXYMETHYLCELLULOSE SODIUM 15 ML OPHTH DROPS 2 DRP EACH EYE ×2 (10:26→21:40)
[2024-10-07] MEDS: hydrOXYzine PAM 25 MG Capsule PO ×2 (10:29→21:44)
--- NOTE | 2024-10-07 11:32 | NURSING ---
Per Dr. Andrade ok to continue IV vancomyin, says reaction shouldn't be happening weeks after starting med. Updated pharmacist Jermaine, order restarted. Will get a dose today and tomorrow before DC (per pt request). Updated Giuliana MO
[2024-10-07] MEDS: MethylPREDNISolone DosePak 4 MG BOX PO ×2 (12:11→16:51)
--- NOTE | 2024-10-07 12:24 | CASEMGMT ---
Social Work SW met with pt to verify dc plans. Pt is requesting to return home tomorrow after dose of IV ATB. ANSHU met with [facility] who confirms this is pt request and that pt can receive ATB prior to discharge. [facility] and [facility] notified. SOC on Monday at 11am. Pt notified and agreeable with this plan. GREER Hurst
[2024-10-07] MEDS: Vancomycin HCl 1,250 MG in 0.9% Normal Saline (250mL Bag) 250 ML 167 MG IV (13:02)
[2024-10-07 16:00] VITALS: BP 145/70; PULSE 74; RESP 16; TEMP 36.2; O2SAT 94
--- NOTE | 2024-10-07 16:10 | CASEMGMT ---
Social Work Pt inquiring about home delivered meals through insurance. Phone call to [facility] and pt does not have this benefit. SW provided pt with list of home delivered meal options. PHQ9 (0) and BIMS () interviews completed on this date for MDS assessment. GREER Hurst
[2024-10-07] MEDS: Pramipexole Di-HCl 0.5 MG Tablet PO (16:51)
--- NOTE | 2024-10-07 19:21 | PCM.PN.ID ---
Physical Exam Narrative New bilat eye redness and itching last night. No drainage, no fever. Given eye drops and steroids, sx improving today. No fever, shoulder doing well. 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 Taken to OR 09/13/[address] Cavanaugh for revision; surg cx x2 with MSSA. Picc in place. Plan is for iv vanc and po rifampin for 6 weeks with stop date 10/25/24 with weekly bmp, cbc, LFT, and ESR. After that, will need long course suppressive po abx. New conjunctivitis, improved with gtts and steroids. Low suspicion for allergic reaction, will restart vanc and monitor. D/w nursing. Will follow
[2024-10-07 20:02] VITALS: BP 112/78; PULSE 70; RESP 16; TEMP 36.8; O2SAT 97
[2024-10-07 21:33] VITALS: BP 147/78; PULSE 71
[2024-10-07] MEDS: 0.9% Saline Lock 10 ML Syringe IV (21:34)
[2024-10-07] MEDS: MELATONIN 10 MG TABLET PO (21:35)
[2024-10-07 21:36] VITALS: BP 147/78; PULSE 71
[2024-10-07] MEDS: Mirtazapine 15 MG Tablet PO (21:36)
[2024-10-07] MEDS: Pramipexole Di-HCl 1 MG Tablet PO (21:37)
[2024-10-07] MEDS: Gabapentin 600 MG Tablet PO (21:44)
[2024-10-08] MEDS: Acetaminophen 500 MG Tablet 1000 MG PO ×2 (05:30→13:10)
[2024-10-08] MEDS: CARBOXYMETHYLCELLULOSE SODIUM 15 ML OPHTH DROPS 2 DRP EACH EYE ×2 (05:32→08:02)
[2024-10-08 06:30] VITALS: PULSE 80; O2SAT 95
[2024-10-08 07:58] VITALS: PULSE 80
[2024-10-08] MEDS: Metoprolol Tartrate 25 MG Tablet PO (07:58)
[2024-10-08] MEDS: amLODIPine 5 MG Tablet PO (07:59)
[2024-10-08] MEDS: Losartan Potassium 50 MG Tablet PO (07:59)
[2024-10-08] MEDS: Famotidine 20 MG Tablet PO (07:59)
[2024-10-08] MEDS: Lactobacillis Acidophilus 1 CAP PO (07:59)
[2024-10-08] MEDS: Aspirin 81 MG TAB.CHEW PO (07:59)
[2024-10-08] MEDS: buPROPion (XL) 150 MG TABLET.XL PO (07:59)
[2024-10-08] MEDS: DULoxetine Hcl 30 MG Capsule PO (07:59)
[2024-10-08] MEDS: rifAMPin 300 MG Capsule PO (07:59)
[2024-10-08] MEDS: Vancomycin HCl 1,250 MG in 0.9% Normal Saline (250mL Bag) 250 ML 167 MG IV (08:00)
[2024-10-08] MEDS: Indapamide 2.5 MG Tablet PO (08:00)
[2024-10-08] MEDS: 0.9% Saline Lock 10 ML Syringe IV (08:00)
[2024-10-08] MEDS: Loperamide 2 MG Capsule PO ×2 (08:04→13:11)
[2024-10-08] MEDS: Menthol/Lanolin/Calamine/Znox 113 GM Tube 1 APPLIC TOPICAL (08:06)
[2024-10-08] MEDS: hydrOXYzine PAM 25 MG Capsule PO (08:48)
[2024-10-08] MEDS: MethylPREDNISolone DosePak 4 MG BOX PO (13:10)
== END 2024-10-08 14:30 | disposition home health service (06) | DRG 950 ==
PROVIDERS: Internal Medicine Infectious Disease; Admitting Provider Family Medicine Geriatric Medicine; PCP Family Medicine; Referring Provider Family Medicine Geriatric Medicine; Visit Provider Family Medicine Geriatric Medicine
DX: T84.59XD Infection and inflammatory reaction due to other internal joint prosthesis, subsequent encounter (principal); B95.61 Methicillin susceptible Staphylococcus aureus infection as the cause of diseases classified elsewhere; G25.81 Restless legs syndrome; I10 Essential (primary) hypertension; F32.A Depression, unspecified; E78.00 Pure hypercholesterolemia, unspecified; G62.9 Polyneuropathy, unspecified; K21.9 Gastro-esophageal reflux disease without esophagitis; H10.9 Unspecified conjunctivitis; B95.62 Methicillin resistant Staphylococcus aureus infection as the cause of diseases classified elsewhere; G47.00 Insomnia, unspecified; Z87.891 Personal history of nicotine dependence; Y79.2 Prosthetic and other implants, materials and accessory orthopedic devices associated with adverse incidents; Z96.612 Presence of left artificial shoulder joint; Z79.899 Other long term (current) drug therapy; Z79.82 Long term (current) use of aspirin
CPT/HCPCS: 36415; 80048; 80053; 80202; 85025; 97110; 97116; 97162; 97166; 97530; 97535; 97802; A4216

== ENCOUNTER → 2025-02-10 | Outpatient (CLI) | payer MEDICARE, SELFPAY ==
--- NOTE | 2025-02-10 10:04 | RAD_ITS ---
PROCEDURE: CHEST PA AND LATERAL 02/10/2025 REASON FOR EXAM: R RALES TECHNIQUE: CHEST PA AND LATERAL COMPARISON: Chest x-ray study dated 09/15/2024 FINDINGS: Hardware: Bilateral visualized shoulder hardware appears to be intact without evidence of fracture or loosening. The entire components are not entirely included on this study. Heart: Heart size and configuration are within normal limits. Mediastinum: Mediastinal silhouette is within normal limits. Arteriosclerotic vascular disease of the aorta is noted. Trachea is midline. Lungs: Prominent interstitial markings are identified in the lung bases bilaterally and are similar when compared to the prior exam. There is no atelectasis, consolidation, effusion or pneumothorax. Emphysematous changes are noted. Bones: Diffuse osteopenia of the bony thorax is noted. The right PICC line catheter seen on the prior exam has been removed in the interim. RAD/Chest PA and Lateral IMPRESSION: The overall chest x-ray findings are similar when compared to the prior exam. Reading Location: [id number]
[2025-02-10 12:04] LABS: Hematocrit 43.3 % (37-47); Hemoglobin 13.7 g/dL (12.0-15.0); Immature Granulocytes Count 0.040 X10^3/uL (0.0-0.0); Mean Corp Hgb Conc 31.6 g/dL (32-36); Mean Corpuscular Volume 92.1 fL (81-99); Mean Platelet Vol. 10.8 fl (6.2-12.0); NRBC Flagged by Analyzer 0 % (0-5); Platelet Count 166 K/mm3 (150-450); RBC Distribution Width CV 13.6 % (11.6-14.6); RBC Distribution Width SD 45.9 fl (35.1-43.9); Red Blood Count 4.70 M/mm3 (4.2-5.4); White Blood Count 9.9 K/mm3 (4.4-11.0)
[2025-02-10 12:40] LABS: AST(SGOT) 36 U/L (<=31); Alanine Aminotransfer ALT/SGPT 27 U/L (<=34); Albumin, Serum 3.9 g/dL (3.4-4.8); Alkaline Phosphatase 147 U/L (35-104); Anion Gap 14 (5-15); BUN 27 mg/dL (4-19); BUN/Creat Ratio 26.9 RATIO (10-20); Calcium,Total 9.8 mg/dL (7.6-11.0); Carbon Dioxide 29.4 mmol/L (21.0-32.0); Chloride 96 mmol/L (98-108); Globulin 3.1 g/dL (2.2-4.2); Glucose 101 mg/dL (70-99); Magnesium 1.7 mg/dL (1.5-2.2); Potassium 4.4 mmol/L (3.3-5.1); Pro- Brain NATRIURETIC PEPTIDE 1101 pg/mL (<=1800)
== END | disposition home or self-care (01) ==
LOC: MTLAB 10:04
PROVIDERS: PCP Family Medicine; Referring Provider Family Medicine; Visit Provider Family Medicine
DX: I50.31 Acute diastolic (congestive) heart failure (principal); R09.89 Other specified symptoms and signs involving the circulatory and respiratory systems
CPT/HCPCS: 36415; 71046; 80053; 83735; 83880; 85025

== ENCOUNTER → 2025-03-04 | Outpatient (CLI) | payer MEDICARE, SELFPAY ==
--- NOTE | 2025-03-04 09:54 | ECHOCS_ITS ---
Reason For Study Reason For Study: Acute Diastolic CHF Procedure This was a 2D Doppler, Color Flow transthoracic echocardiogram. The study was technically difficult. Contrast injection was performed. Exam performed in department. Left Ventricle Normal LV size. Mild concentric left ventricular hypertrophy. The left ventricular ejection fraction is 70 %. Stage 1 diastolic dysfunction. Right Ventricle Normal right ventricle. Atria The left and right atria are normal. Mitral Valve There is Mild focal posterior mitral annular calcification. Trivial mitral valve insufficiency. Tricuspid Valve Trivial tricuspid valve insufficiency. Normal pulmonary artery pressure. Aortic Valve Trisinus/trileaflet aortic valve. Pulmonic Valve The pulmonic valve is not well visualized. Great Vessels Normal sized aortic root. Pericardium/Pleural No pericardial effusion. Medication 22 gauge I.V. with prn adaptor inserted into right arm. Diluted definity 3ml given slow IV push to enhance endocardial definition. MMode/2D Measurements & Calculations LVIDd: 4.3 cm IVSd: 1.4 cm Ao root diam: 3.6 cm LVIDs: 3.0 cm LVPWd: 1.3 cm RVDd: 3.2 cm FS: 29.1 % LAV(MOD-bp): 65.1 ml LVAd ap4: 35.0 cm2 SV(MOD-sp4): 95.7 ml LAV(MOD-bp) Indexed: 29.8 ml/m2 LVLd ap4: 8.2 cm SI(MOD-sp4): 43.8 ml/m2 LAV(MOD-sp2): 69.9 ml EDV(MOD-sp4): 123.7 ml LAV(MOD-sp4): 56.2 ml EDV(sp4-el): 126.1 ml LVAs ap4: 14.4 cm2 LVLs ap4: 6.1 cm ESV(MOD-sp4): 28.1 ml ESV(sp4-el): 28.8 ml EF(MOD-sp4): 77.3 % EF(sp4-el): 77.1 % SV(sp4-el): 97.3 ml LA A4 area: 19.9 cm2 LA dimension(2D): 3.9 cm RA A4 area: 15.6 cm2 TAPSE: 1.7 cm Time Measurements MV dec time: 0.17 sec Doppler Measurements & Calculations MV E max taqueria: 80.9 cm/sec Lat Peak E' Taqueria: 7.4 cm/sec Med Peak E' Taqueria: 5.0 cm/sec MV A max taqueria: 82.2 cm/sec E/E' lat: 10.9 E/E' med: 16.1 MV E/A: 0.98 MV V2 max: 93.2 cm/sec MV P1/2t max taqueria: 94.6 cm/sec Ao V2 max: 158.8 cm/sec MV max P.5 mmHg MV P1/2t: 61.5 msec Ao max P.1 mmHg MV V2 mean: 56.7 cm/sec MV dec slope: 450.8 cm/sec2 Ao V2 mean: 107.1 cm/sec MV mean P.5 mmHg MVA(P1/2t): 3.6 cm2 Ao mean P.3 mmHg MV V2 VTI: 23.2 cm Ao V2 VTI: 31.0 cm AV (velocity ratio): 0.86 LV V1 max: 141.0 cm/sec MR max taqueria: 440.9 cm/sec PA V2 max: 83.4 cm/sec LV V1 max P.0 mmHg MR max P.7 mmHg LV V1 mean P.0 mmHg LV V1 mean: 91.6 cm/sec LV V1 VTI: 26.5 cm TR max taqueria: 227.1 cm/sec TR max P.6 mmHg ECHO/Echo Complete W/ Contrast Interpretation Summary Mild concentric left ventricular hypertrophy. The left ventricular ejection fraction is 70 %. Stage 1 diastolic dysfunction. There is Mild focal posterior mitral annular calcification. The study was technically difficult. Ordering Physician: Kamar Grimes Referring Physician: Kamar Grimes Performed By: Xavier Castano RCS
[2025-03-04 11:20] LABS: AST(SGOT) 28 U/L (<=31); Alanine Aminotransfer ALT/SGPT 22 U/L (<=34); Albumin, Serum 3.7 g/dL (3.4-4.8); Alkaline Phosphatase 125 U/L (35-104); Anion Gap 10 (5-15); BUN 63 mg/dL (4-19); BUN/Creat Ratio 36.5 RATIO (10-20); Calcium,Total 9.2 mg/dL (7.6-11.0); Carbon Dioxide 34.8 mmol/L (21.0-32.0); Chloride 95 mmol/L (98-108); Globulin 2.9 g/dL (2.2-4.2); Glucose 93 mg/dL (70-99); Magnesium 1.9 mg/dL (1.5-2.2); Potassium 4.0 mmol/L (3.3-5.1)
== END | disposition home or self-care (01) ==
LOC: CVS 09:30
PROVIDERS: PCP Family Medicine; Referring Provider Family Medicine; Visit Provider Family Medicine
DX: I11.0 Hypertensive heart disease with heart failure (principal); I50.31 Acute diastolic (congestive) heart failure
CPT/HCPCS: 36415; 80053; 83735; 93306; Q9957; A4216; C8929

== ENCOUNTER → 2025-03-10 | Outpatient (CLI) | payer MEDICARE, SELFPAY ==
[2025-03-10 15:39] LABS: Anion Gap 12 (5-15); BUN 28 mg/dL (4-19); BUN/Creat Ratio 27.2 RATIO (10-20); Calcium,Total 9.4 mg/dL (7.6-11.0); Carbon Dioxide 31.4 mmol/L (21.0-32.0); Chloride 95 mmol/L (98-108); Glucose 79 mg/dL (70-99); Potassium 4.3 mmol/L (3.3-5.1)
== END | disposition home or self-care (01) ==
LOC: MTLAB 10:41
PROVIDERS: PCP Family Medicine; Referring Provider Family Medicine; Visit Provider Family Medicine
DX: N18.2 Chronic kidney disease, stage 2 (mild) (principal)
CPT/HCPCS: 36415; 80048

== ENCOUNTER → 2025-03-17 | Outpatient (CLI) | payer MEDICARE, SELFPAY ==
--- NOTE | 2025-03-17 16:55 | CT_ITS ---
PROCEDURE: CTA CHST, ABD, PEL W AND/OR WO 03/17/2025 REASON FOR EXAM: SHORTNESS OF BREATH/ FLUID RETENTION TECHNIQUE: Procedure Code: CTCTA.CHAP.2 Modality: CT Procedure: CTA CHST, ABD, PEL W AND/OR WO Coronal and Sagittal reconstruction series were provided. One or more dose reduction techniques were used (e.g., Automated exposure control, adjustment of the mA and/or kV according to patient size, use of iterative reconstruction technique. CONTRAST: Isovue 370 VOLUME: 100 mL RADIATION DOSE SUMMARY: CTDlvol: 31.91 mGy DLP: 2145.60 mGycm COMPARISON: None. FINDINGS: CHEST: Lines and tubes: None. Mediastinum: Unremarkable Heart: No cardiomegaly. Atherosclerotic calcifications of the coronary arteries. Thoracic Aorta: No aneurysm. No dissection. Lungs and Airways: Clear. Pleura: No pleural effusion or pneumothorax. Bones: Status post bilateral total shoulder replacement. No acute bony abnormalities. Other: None. ABDOMEN AND PELVIS: Liver: Liver steatosis. Gallbladder: Unremarkable. Spleen: No splenomegaly. Pancreas: Fatty infiltration. No evidence of pancreatitis or tumor. Adrenals: A 1.2 cm adenoma at the medial limb of the right adrenal gland. The left adrenal gland is unremarkable. Kidneys: Unremarkable. No hydronephrosis. No nephrolithiasis. Bladder: Unremarkable. Reproductive Organs: Unremarkable. Bowel: No bowel wall thickening. No bowel obstruction. Colonic diverticulosis with no evidence of acute diverticulitis. Vasculature: Infrarenal aortic aneurysm measures 3.8 x 4.5 x 5.5 cm. Peritoneum / Retroperitoneum: No free air or free fluid. Bones: Multilevel degenerate changes of the lumbar spine. Status post bilateral hip replacement. No acute bony abnormalities. CT/CTA Chst, Abd, Pel W and/or WO IMPRESSION: No aortic dissection. No significant vascular narrowing. Infrarenal saccular aortic aneurysm measures 3.8 x 4.5 x 5.5 cm. No acute abdominopelvic or chest abnormalities. Colonic diverticulosis with no evidence of acute diverticulitis. Reading Location: [facility]
== END | disposition home or self-care (01) ==
LOC: CT 16:33
PROVIDERS: PCP Family Medicine; Referring Provider Family Medicine; Visit Provider Family Medicine
DX: R06.02 Shortness of breath (principal)
CPT/HCPCS: 71275; 74174; Q9967; A4216

== ENCOUNTER 2025-03-18 14:53 | Inpatient (IN) | payer MEDICARE, SELFPAY ==
[2025-03-18] VITALS (27 sets, daily range): BP systolic 32–240; BP diastolic 13–148; PULSE 53–90; RESP 11–24; TEMP 31.6–35.8; O2SAT 79–100; BMI 38.7; BMI 38.8
--- NOTE | 2025-03-18 15:00 | EX.ED.DYSGE1 ---
HPI History of Present Illness Chief Complaint: Alt LOC Detail of Chief Complaint: Altered mental status per squad. Nurses concern for possible stroke. Informant: patient and EMS Onset/Context/Timing Onset: - (Last known at baseline March 17 at 1600) Context: - (Unknown) Timing: Continuous (Presumed) Quality: Speaks slowly and is not as active Location: Presents from home Current Severity: Mild Maximum Severity: Moderate Worsened by: Unknown/nothing Relieved by: Unknown/nothing Associated Symptoms Associated Symptoms: No urine output since yesterday Narrative Narrative: Patient is a 75-year-old woman. She arrived by [facility]. She was met at the ambulance entrance because she reportedly had slurred speech. She was last known well at 160o on March 17. Family called [facility]. She has a bruise noted lateral left periorbital region. She apparently fell out of bed. Nurse confirmed that she fell out of bed. She denies headache. She denies double vision, blurred vision loss of vision. She denies ringing or ears or decreased hearing. She denies slurred speech. She states her speech is slow. She denies cardiac or respiratory symptoms. She denies GI symptoms. Prior similar symptoms: No Recent Illness/Hospitalization: No [facility] Medical History Infection and inflammatory reaction due to other internal joint prosthesis, initial encounter Insomnia MRSA (methicillin resistant staph aureus) culture positive Wears glasses Post-menopausal Depression Anxiety Walker as ambulation aid Ambulates with cane Arthritis High cholesterol Back pain Restless legs Former smoker Shortness of breath on exertion History of pain when walking History of edema Hypertension Home Medications ?Medication ?Instructions ?Recorded ?Last Taken ?Type losartan 50 mg tablet 50 mg PO BID BP 09/19/14 09/13/24 History melatonin 5 mg tablet 10 mg PO QHS INSOMNIA 09/19/14 Unknown History bupropion HCl 300 mg 24 hr tablet, 150 mg PO DAILY DEPRESSION 06/11/20 09/13/24 History extended release gabapentin 600 mg tablet 600 mg PO QHS SLEEP 06/11/20 Unknown History mirtazapine 15 mg tablet 15 mg PO QHS INSOMNIA 06/24/20 06/23/20 20:00 History duloxetine 30 mg capsule,delayed 30 mg PO DAILY DEPRESSION 09/11/24 09/13/24 History release (Cymbalta) pramipexole 0.5 mg tablet 0.5 mg PO DINNER RLS 09/11/24 Unknown History aspirin 81 mg chewable tablet 81 mg PO BID blood thinner #0 tabs 09/17/24 Unknown Rx loperamide 2 mg capsule 2 mg PO Q2H PRN PRN DIARRHEA #0 09/17/24 Unknown Rx caps albuterol sulfate 90 mcg/actuation 2 inh inhalation Q4H PRN shortness 03/18/25 Unknown History aerosol inhaler of breath or wheezing carvedilol 3.125 mg tablet 3.125 mg PO BID 03/18/25 Unknown History doxycycline hyclate 100 mg capsule 100 mg PO BID abx 03/18/25 Unknown History indapamide 2.5 mg tablet 2.5 mg PO DAILY diuretic 03/18/25 Unknown History naproxen sodium 220 mg tablet 440 mg PO DAILY PRN pain 03/18/25 Unknown History potassium citrate 10 mEq (1,080 10 meq PO DAILY 03/18/25 Unknown History mg) tablet,extended release pramipexole 1 mg tablet 1 mg PO QHS restless leg 03/18/25 Unknown History spironolactone 50 mg tablet 50 mg PO DAILY 03/18/25 Unknown History Allergy/AdvReac Type Severity Reaction Status Date / Time Penicillins Allergy Anaphylaxis Verified 03/18/25 14:54 Surgical History History of reverse total replacement of right shoulder joint History of surgery Hx of colonoscopy Hx of right cataract extraction Hx of left cataract extraction History of partial colectomy Hx of appendectomy Hx of total hip arthroplasty Hx of total shoulder replacement Hx of lumbar discectomy Hx of total shoulder replacement Hx of total hip arthroplasty Social History household members: none Smoking Status: Former smoker alcohol intake: never substance use type: does not use ROS ROS ED Constitutional Constitutional ED: Denies chills, fever(s), subjective or sweats Eyes Eyes: Denies blurry vision or change in vision ENT ENT ED: Denies ear pain, rhinorrhea or sore throat Cardiovascular Cardiovascular: Denies chest pain, orthopnea, palpitations, paroxysmal nocturnal dyspnea or racing heartbeat Respiratory/Chest Respiratory/Chest: Denies cough, dyspnea, dyspnea on exertion, orthopnea or paroxysmal nocturnal dyspnea Gastrointestinal Gastrointestinal: Denies abdominal pain, diarrhea, nausea or vomiting Genitourinary Genitourinary ED: Reports other Details: No urine output since yesterday ; Denies dysuria, hematuria or urinary frequency Musculoskeletal Musculoskeletal: Denies arthralgias or myalgias Integumentary Denies Abrasions or rash Neurologic Neurologic: Denies headache(s), paresthesias or weakness Psychiatric Psychiatric: Denies anxiety Hematologic/Lymphatic Hematologic/Lymphatic: Reports systems reviewed and no addt'l complaints, except as documented EXAM Physical Exam Narrative Exam Narrative: Family called because of her slow speech and not at her baseline. Const Vital Signs: 03/18/25 15:47 03/18/25 16:00 03/18/25 17:00 Temperature 90.6 F L Temperature Source Core Pulse Rate 62 89 63 Respiratory Rate 19 H 17 Blood Pressure 103/79 92/71 102/63 Blood Pressure Mean 87 78 76 Pulse Ox 96 100 Oxygen Delivery Method Nasal Cannula Nasal Cannula Oxygen Flow Rate (L/min) 4 4 EtCo2 - Document during CPR and with ROSC 03/18/25 17:30 03/18/25 17:48 03/18/25 17:51 Temperature Temperature Source Pulse Rate 58 L 53 L Respiratory Rate 11 L Blood Pressure 89/64 L Blood Pressure Mean 72 Pulse Ox 88 90 Oxygen Delivery Method Nasal Cannula Oxygen Flow Rate (L/min) 4 EtCo2 - Document during CPR and with ROSC 79 03/18/25 17:52 03/18/25 18:00 03/18/25 18:00 Temperature Temperature Source Pulse Rate 60 61 Respiratory Rate 16 14 Blood Pressure 88/62 L 54/42 L Blood Pressure Mean 70 46 Pulse Ox 99 99 Oxygen Delivery Method Mechanical Ventilator Oxygen Flow Rate (L/min) EtCo2 - Document during CPR and with ROSC 03/18/25 18:34 03/18/25 19:18 Temperature Temperature Source Pulse Rate Respiratory Rate Blood Pressure 73/49 L 240/120 H Blood Pressure Mean 57 160 Pulse Ox Oxygen Delivery Method Oxygen Flow Rate (L/min) EtCo2 - Document during CPR and with ROSC Positive well nourished and well developed Constitutional Narrative: BMI is 38.7. General Appearance ED: well developed and NAD; Negative for cyanotic or diaphoretic HEENT Reports dry mucous membranes HEENT Narrative: There is a bruise and abraded area lateral left brow and inferior to the left brow. There is no CSF otorrhea or rhinorrhea. No hemotympanum. Mouth ED: Yes dry mucous membranes Mouth: dry mucous membranes Eyes PERRL and EOMs intact bilaterally Eyes Narrative: There is no nystagmus. Patient has pinpoint pupils. General Eye ED: Negative for pale conjunctiva or scleral icterus Neck no lymphadenopathy, supple and no JVD Chest Wall inspection of chest normal and palpation of chest normal Resp normal respiratory effort and clear to auscultation bilaterally Cardio regular rate, regular rhythm, S1 normal heart sound, S2 normal heart sound and no murmurs GI normal to inspection, nondistended, normoactive bowel sounds, non-tender, non-distended and no masses Auscultation: normoactive bowel sounds Palpation: soft Back/Spine no CVA tenderness Extremity normal to inspection Neuro oriented x3, CN's II-XII intact bilaterally and no sensory deficits noted Neuro Narrative: Slow psychomotor skills. Sensorium / Orientation: alert Motor Exam: strength 5/5 throughout Psych mental status grossly normal Skin no rashes or lesions noted, no wounds and skin turgor normal Sepsis Attestation Sepsis Alert: Yes Sepsis Attestation: Sepsis Ruled Out (Uncertain etiology of patient's hypotension and altered mental status. There is no obvious source of infection and with no elevated white count I am not certain that this represents sepsis.) MDM MDM MDM Narrative Medical decision making narrative: Patient arrived by squad because of altered mental status. She has not urinated since yesterday. Nursing staff is concerned this may represent stroke because of slurred speech. Patient's speech is not slurred at slow. With evidence of head trauma need to rule out intracranial bleed i.e. subdural hematoma, traumatic subarachnoid hemorrhage or intraparenchymal contusion. Doubt epidural hematoma since this happened hours ago. Will also obtain CBC, competence of metabolic panel and urine to assess for infectious or metabolic cause if the CT is negative. I was informed by nursing staff that unable to get an axillary oral temp. Straight cath was changed to temperature Day for accurate temperature. History & Record Review Additional record(s) reviewed:: Prior inpatient record (Admitted August of this year for infectious and inflammatory reaction due to internal joint prosthesis. Patient was seen by infectious disease and recommended 6 weeks of vancomycin. Patient was hypoxic as well. That improved.), Prior outpatient record (H&P by Dr. Sanches was noted when she transition from the hospital to the TCU.) and Prior labs Lab Data Attestation: I reviewed the patient's lab results. Lab results narrative: CBC is remarkable for elevated H&H. Comprehensive metabolic panel was elevated BUN/creatinine of 52 and 2.12. Her prior creatinine was normal. Creatinine was normal on March 10, 2025. She has mild hyponatremia and hypochloremia since 10 March as well. AST, ALT and alkaline phosphatase are elevated. These have been elevated in the past. Urinalysis reveals no pyuria but she does have bacteriuria. Labs: Laboratory Results - last 24 hr 03/18/25 03/18/25 03/18/25 03:50 03:58 15:15 WBC 9.9 RBC 5.40 Hgb 15.8 H Hct 50.5 H MCV 93.5 MCH 29.3 MCHC 31.3 L RDW Std Deviation 49.9 H RDW Coeff of Terry 14.6 Plt Count 218 MPV 10.4 Immature Gran % (Auto) 0.900 Neut % (Auto) 84.3 H Lymph % (Auto) 7.4 L [place] % (Auto) 7.0 Eos % (Auto) 0.0 Baso % (Auto) 0.4 Absolute Neuts (auto) 8.4 H Absolute Lymphs (auto) 0.73 L Nucleated RBC % 0 ESR 37 H PT 12.4 INR 0.9 APTT 27.8 Sodium 131 L Potassium 4.4 Chloride 84 L Carbon Dioxide 32.8 H Anion Gap 14 BUN 51 H Creatinine 2.22 H Estim Creat Clear Calc 27.85 L Est GFR (MDRD) Non-Af 22 L BUN/Creatinine Ratio 22.8 H Glucose 115 H Lactic Acid 1.1 Calcium 9.7 Total Bilirubin 0.35 AST 86 H ALT 61 H Alkaline Phosphatase 162 H Total Creatine Kinase 137 C-React Prot Ext Range 5.32 H Total Protein 7.7 Albumin 4.1 Globulin 3.6 Albumin/Globulin Ratio 1.1 Triglycerides 90 Procalcitonin 0.10 TSH 1.650 Urine Color Urine Clarity Urine pH Ur Specific Carson Urine Protein Urine Glucose (UA) Urine Ketones Urine Occult Blood Urine Nitrite Urine Bilirubin Urine Urobilinogen Ur Leukocyte Esterase Urine RBC Urine WBC Ur Squamous Epith Cells Ur Transition Epith Cell Urine Bacteria Urine Mucus Urine Osmolality 437 Ur Random Sodium 28 Urine Creatinine 83.80 Urine Potassium 31.9 Urine Chloride < 20 Urine Urea Nitrogen 390 03/18/25 15:24 WBC RBC Hgb Hct MCV MCH MCHC RDW Std Deviation RDW Coeff of Terry Plt Count MPV Immature Gran % (Auto) Neut % (Auto) Lymph % (Auto) [place] % (Auto) Eos % (Auto) Baso % (Auto) Absolute Neuts (auto) Absolute Lymphs (auto) Nucleated RBC % ESR PT INR APTT Sodium Potassium Chloride Carbon Dioxide Anion Gap BUN Creatinine Estim Creat Clear Calc Est GFR (MDRD) Non-Af BUN/Creatinine Ratio Glucose Lactic Acid Calcium Total Bilirubin AST ALT Alkaline Phosphatase Total Creatine Kinase C-React Prot Ext Range Total Protein Albumin Globulin Albumin/Globulin Ratio Triglycerides Procalcitonin TSH Urine Color Yellow Urine Clarity Clear Urine pH 6.0 Ur Specific Carson 1.015 Urine Protein 30 H Urine Glucose (UA) Normal Urine Ketones Negative Urine Occult Blood Negative Urine Nitrite Negative Urine Bilirubin Negative Urine Urobilinogen Normal Ur Leukocyte Esterase Negative Urine RBC 0-5 SEEN Urine WBC 0-5 SEEN Ur Squamous Epith Cells 0-5 SEEN Ur Transition Epith Cell 0-5 SEEN Urine Bacteria 1+ Urine Mucus 0 SEEN Urine Osmolality Ur Random Sodium Urine Creatinine Urine Potassium Urine Chloride Urine Urea Nitrogen Patient was not started on antibiotics and she does not have pyuria and only bacteriuria. ABG Data Attestation: I personally reviewed and interpreted this ABG as follows: Interpretation: Metabolic acidosis with increased AA gradient. ABG results: ABG 03/18/25 18:22 Specimen Type ART Sample Site L Brach pH 7.32 L Bicarbonate Actual 30.3 H Total CO2 32 Base Excess 4 H O2 Saturation 97 O2 % 40.0 ABG pCO2 59.2 H ABG pO2 101 H Respiration Rate 14 O2 Delivery Device Adult Vent Vent Mode AC/VC Tidal Volume 400.0 POC PEEP 5 Radiography Chest X-Ray - ED: 2 View, Read by ED Physician (Limited study due to poor inspiratory volume versus restricted lung volume. Because of this the cardiac silhouette is obstructed slightly. There is no obvious infiltrate or effusion. There is no acute osseous fracture or abnormalities.) and - (Postintubation x-ray and KUB were reviewed by me. Endotracheal tube is approximately 1 to 1.5 cm above the abigail. Story volume is limited. OG is in proper position.) Diagnostic Testing: Clinical Impression(s) from Imaging Studies Brain CT 03/18/25 15:30 IMPRESSION: No acute intracranial process. Reading Location: [id number] Chest X-Ray 03/18/25 15:35 IMPRESSION: Bilateral low lung volumes. No acute cardiopulmonary abnormality. Reading Location: [id number] Chest X-Ray 03/18/25 17:44 IMPRESSION: 1. Endotracheal tube tip 3.1 cm above the abigail. 2. Enteric tube appropriately positioned terminating in the upper midabdomen. 3. Cardiomegaly, with increased vascular markings and possible interstitial edema. Reading Location: [facility] KUB X-Ray 03/18/25 18:00 IMPRESSION: Enteric tube terminates appropriately within the stomach. Persistent IV contrast opacifying the kidneys suggesting medical renal disease with delayed excretion. Reading Location: [facility] Abdomen/Pelvis CTA 03/18/25 18:50 IMPRESSION: 1. No acute or active inflammatory intra-abdominal pathology. 2. Stable saccular infrarenal abdominal aortic aneurysm measuring up to 4.4 cm. 3. Indeterminate 15 mm right adrenal gland nodule, probably adenoma. Suggest follow-up dedicated adrenal CT or MRI in 12 months to assess stability. Reading Location: [facility] Chest X-Ray 03/18/25 19:02 IMPRESSION: 1. New right subclavian approach central venous catheter, tip at the lower SVC. 2. Stable positioning of the endotracheal and enteric tubes. 3. Unchanged lung aeration. Stable cardiomegaly. Reading Location: [facility] I did review the CAT scan. The CAT scan revealed no obvious intracranial process. CT of the abdomen pelvis with IV contrast does reveal a infrarenal abdominal aortic aneurysm. There is no evidence of leak/rupture. Management Discussion w/another healthcare provider: Hospitalist (Spoke with joyce Lee the hospitalist. She was informed of patient's change in condition and will need admission to ICU.) Treatment and Re-Evaluation :: Since patient is hypotensive will administer IV fluid bolus. When I went in to speak to patient and family she was somnolent. She was drooling. She was not responsive to verbal or tactile stimulus. Capnometer was placed. And her CO2 is greater than 80. In light of this she was prepped for all tracheal ovation. She also desaturated. She was ventilated by [id number] by respiratory therapist and me. Once her saturation reached 97% she was intubated easily with a 7.5 [place] endotracheal tube. The tube was seen passing through the cords. Capnometer change appropriate color. Will obtain chest x-ray to confirm position as well as place OG and obtain KUB. Patient was medicated with 20 mg of etomidate and 60 mg of rocuronium. Since she is hypotensive she will receive fentanyl IV push and fentanyl drip. After contacting the hospital patient had a drop in blood pressure. She does not have a palpable carotid radial or femoral pulse. She had an outpatient CAT scan which revealed a 5.5 cm abdominal aortic aneurysm. Since patient has undifferentiated shock will need to obtain CT to rule out leaking aneurysm. Patient is not able to give consent. A right subclavian line was placed by me. This was done under emergent conditions. I do not in the room was capped and masked. I was in appropriate attire. Hospital protocol was adhered to first procedural sterility. Patient was prepped draped sterile manner. Drape was applied. Area was anesthetized. The right subclavian vein was cannulated Heather first attempt. Using Seldinger technique 7.5 [place] triple-lumen was placed without difficulty. Blood was aspirated from all 3 ports. Will obtain chest x-ray to confirm placement and evaluate for pneumothorax. Chest x-ray status post right subclavian line placement reveals the line to be in proper position. There is no evidence of pneumothorax or hemothorax. Comments:: Planning Technician is asked to page the hospitalist at [phone]. Procedures Other Procedures Procedure(s): 7.5 [place] triple-lumen placed right subclavian. Documentation under [facility] portion of the medical records. Critical Care Time Critical Care Time: Yes Critical care time (excluding procedures): 30-74 minutes (34), Including time spent: (History, physical, documentation, independent or potation laboratory results and images, treatment for hypotension of unknown cause), Discussing w/Patient &/or Family/Panel Maker (Inform patient that since she has gotten worse and has multiple medical problems she will require intubation admission ICU), Discussing w/Consultants (Hospitalist) and Arranging Admission or Transfer Discharge Plan Dx/Rx/DC Orders Clinical Impression: Acute on chronic respiratory failure with hypoxia and hypercapnia, Acute hypotension, Debility, Acute kidney injury, Acute dehydration, Bacteria in urine, Hypothermia Disposition Disposition: [facility] Discharge Date/Time: 03/18/25 20:50
--- NOTE | 2025-03-18 15:30 | CT_ITS ---
PROCEDURE: BRAIN/HEAD WITHOUT CONTRAST 03/18/2025 REASON FOR EXAM: ALTERED MENTAL STATUS STATUS POST HEAD TRAUMA TECHNIQUE: Procedure Code: CTBR Modality: CT Procedure: BRAIN/HEAD WITHOUT CONTRAST Coronal and Sagittal reconstruction series were provided. One or more dose reduction techniques were used (e.g., Automated exposure control, adjustment of the mA and/or kV according to patient size, use of iterative reconstruction technique. RADIATION DOSE SUMMARY: DLP: 796 mGycm COMPARISON: None FINDINGS: There is no acute infarct, intracranial hemorrhage, or mass effect. There is no hydrocephalus or significant midline shift. There is mild chronic microvascular ischemic changes and mild parenchymal volume loss. No acute, depressed calvarial fractures. No large scalp hematomas. The paranasal sinuses are clear. Bilateral lens surgery. CT/Brain/Head without Contrast IMPRESSION: No acute intracranial process. Reading Location: [id number]
[2025-03-18 15:33] LABS: Mucous, Urine 0 SEEN /hpf (<or=2+)
--- NOTE | 2025-03-18 15:35 | RAD_ITS ---
PROCEDURE: CHEST PA AND LATERAL 03/18/2025 REASON FOR EXAM: TACHYPNEA TECHNIQUE: Procedure Code: RADCXR Modality: DX Procedure: CHEST PA AND LATERAL FINDINGS: Hardware: Multiple monitoring leads overlying chest wall. Heart: Heart size is mildly enlarged. Mediastinum: The mediastinal contour is stable. Lungs: Bilateral low lung volumes. Bones: Degenerative changes of visualized spine.Status post bilateral reverse shoulder arthroplasty with surgical hardware demonstrating gross anatomic alignment RAD/Chest PA and Lateral IMPRESSION: Bilateral low lung volumes. No acute cardiopulmonary abnormality. Reading Location: [id number]
[2025-03-18 15:43] LABS: Color, Urine Yellow (Yellow); Glucose, Dipstick Normal (Normal); Ketone-Dipstick Negative (Negative); Leukocyte Esterase-Dipstick Negative /ul (Negative); Nitrite-Dipstick Negative (Negative); Occult Blood-Urine Negative /ul (Negative); Protein-Dipstick 30 mg/dl (Negative); Specific Gravity, Urine 1.015 (1.002-1.030); Urine Bilirubin Dipstick Negative (Negative)
[2025-03-18 15:53] LABS: Hematocrit 50.5 % (37-47); Hemoglobin 15.8 g/dL (12.0-15.0); Immature Granulocytes Count 0.090 X10^3/uL (0.0-0.0); Mean Corp Hgb Conc 31.3 g/dL (32-36); Mean Corpuscular Volume 93.5 fL (81-99); Mean Platelet Vol. 10.4 fl (6.2-12.0); NRBC Flagged by Analyzer 0 % (0-5); Platelet Count 218 K/mm3 (150-450); RBC Distribution Width CV 14.6 % (11.6-14.6); RBC Distribution Width SD 49.9 fl (35.1-43.9); Red Blood Count 5.40 M/mm3 (4.2-5.4); White Blood Count 9.9 K/mm3 (4.4-11.0)
[2025-03-18] MEDS: 0.9% Normal Saline (1000mL) 1,000 ML 1000 ML IV (16:10)
[2025-03-18 16:12] LABS: AST(SGOT) 86 U/L (<=31); Alanine Aminotransfer ALT/SGPT 61 U/L (<=34); Albumin, Serum 4.1 g/dL (3.4-4.8); Alkaline Phosphatase 162 U/L (35-104); Anion Gap 14 (5-15); BUN 51 mg/dL (4-19); BUN/Creat Ratio 22.8 RATIO (10-20); Calcium,Total 9.7 mg/dL (7.6-11.0); Carbon Dioxide 32.8 mmol/L (21.0-32.0); Chloride 84 mmol/L (98-108); Estimated Creatinine Clearance 27.85 ml/min (50-250); Globulin 3.6 g/dL (2.2-4.2); Glucose 115 mg/dL (70-99); Potassium 4.4 mmol/L (3.3-5.1)
[2025-03-18 16:17] LABS: Red Blood Cells-Urine 0-5 SEEN /hpf (0-5); Squamous Epithelial Cells - UA 0-5 SEEN /hpf (5-10)
[2025-03-18 16:21] LABS: Transitional Epithelial - Ur 0-5 SEEN /hpf (0-5)
[2025-03-18 17:09] LABS: Prothrombin Time (Protime)PT. 12.4 SECONDS (11.7-14.9)
[2025-03-18 17:10] LABS: Partial Thromboplast Time 27.8 Seconds (24.1-36.2)
--- NOTE | 2025-03-18 17:44 | RAD_ITS ---
PROCEDURE: CHEST 1 VIEW (PORTABLE) 03/18/2025 REASON FOR EXAM: INTUBATION TECHNIQUE: Frontal view of the chest. COMPARISON: Earlier same day 03/18/2025 FINDINGS: Endotracheal tube in place terminating 3.1 cm above the abigail. Enteric tube courses midline extending below the diaphragm into the upper midabdomen. Cardiomegaly. Increased vascular and interstitial markings, possible interstitial edema. No pneumothorax or sizable pleural effusion. Mild left basilar linear/discoid atelectasis. Multilevel degenerative changes of the spine. Partially imaged bilateral shoulder arthroplasty hardware. RAD/Chest 1 View (Portable) IMPRESSION: 1. Endotracheal tube tip 3.1 cm above the abigail. 2. Enteric tube appropriately positioned terminating in the upper midabdomen. 3. Cardiomegaly, with increased vascular markings and possible interstitial bobo ma. Reading Location: [facility]
--- NOTE | 2025-03-18 17:57 | ED.RN ---
1752 intubation time, 7.5 et 24@ gum +luma. breath sounds
[2025-03-18] MEDS: fentaNYL 100 MCG/2 ML Ampul 50 MCG IV (17:58)
--- NOTE | 2025-03-18 18:00 | RAD_ITS ---
PROCEDURE: ABDOMEN SINGLE VIEW (PORTABLE) 03/18/2025 REASON FOR EXAM: NG INSERTION TECHNIQUE: Procedure Code: RADABD_P Modality: DX Procedure: ABDOMEN SINGLE VIEW (PORTABLE) COMPARISON: Abdominal CT 03/17/2025. FINDINGS: Enteric tube courses midline extending below the diaphragm into the upper midabdomen, side port/distal tip terminating in the expected location of the stomach. Visualized bowel gas pattern is nonobstructive. No free subdiaphragmatic air. Persistent IV contrast opacifying the kidneys suggesting delayed excretion with medical renal disease. Multilevel degenerative changes of the visualized spine. Cardiomegaly. RAD/Abdomen Single View (Portable) IMPRESSION: Enteric tube terminates appropriately within the stomach. Persistent IV contrast opacifying the kidneys suggesting medical renal disease with delayed excretion. Reading Location: [facility]
[2025-03-18] MEDS: fentaNYL drip 100 ML 2.5 MCG CONT INF ×2 (18:14→21:12)
--- NOTE | 2025-03-18 18:15 | ED.RN ---
dr wilkerson at bedside this Rn noted weak peripheral pulses and unable to obtain automatic BP. this Rn attempted manual BP and unable to hear.
--- NOTE | 2025-03-18 18:19 | ED.RN ---
this RN awaiting Levophed from pharmacy
[2025-03-18 18:27] LABS: Base Excess 4 mmol/L (-2 to +2); FI02 40.0; PEEP 5; PO2 101 mmHG (75-100); RR 14; SITE L Brach; SO2 97 % (95-99)
[2025-03-18] MEDS: Norepinephrine 8 MG in 0.9% Normal Saline (250mL Bag) 242 ML 9.4 MG CONT INF (18:30)
--- NOTE | 2025-03-18 18:50 | CT_ITS ---
PROCEDURE: CTA ABD/PELVIS W/WO CONTRAST 03/18/2025 REASON FOR EXAM: RULE OUT RUPTURE AAA TECHNIQUE: Procedure Code: [id number] Modality: CT Procedure: CTA ABD/PELVIS W/WO CONTRAST Multiplanar Sagittal and Coronal images were obtained. 3D / MIP post processing was performed. CONTRAST: Isovue 370 VOLUME: 92 mL One or more dose reduction techniques were used (e.g., Automated exposure control, adjustment of the mA and/or kV according to patient size, use of iterative reconstruction technique). RADIATION DOSE SUMMARY: DLP: 1390.31 mGycm COMPARISON: Abdominal CTA 03/17/2025. FINDINGS: AORTA: Diffuse tortuosity of the abdominal aorta, with moderate atherosclerotic disease. Stable infrarenal saccular aneurysm just above the iliac bifurcation, measuring up to 4.4 x 4 cm. Major branch vessels are patent, normal in course and caliber. No dissection. HEPATOBILIARY: Hepatic steatosis. Otherwise within normal limits. GENITOURINARY: Redemonstrated indeterminate right adrenal gland nodule measuring up to 15 mm. Few bilateral simple appearing small renal cysts. No hydronephrosis. Urinary bladder decompressed around a Day catheter. Unremarkable appearance of the uterus and adnexae. GI TRACT: Enteric tube terminates within the stomach. No evidence of bowel obstruction or active inflammatory process. Appendix is surgically absent. Mild distal colonic diverticulosis without evidence for active diverticulitis/colitis. PERITONEUM/RETROPERITONEUM: No ascites or free air. No lymphadenopathy. MUSCULOSKELETAL: Bilateral hip arthroplasties. Multilevel degenerative changes of the spine. Postoperative changes of multilevel dorsal decompressive laminectomies from L2-L4. CT/CTA Abd/Pelvis W/WO Contrast IMPRESSION: 1. No acute or active inflammatory intra-abdominal pathology. 2. Stable saccular infrarenal abdominal aortic aneurysm measuring up to 4.4 cm. 3. Indeterminate 15 mm right adrenal gland nodule, probably adenoma. Suggest f ollow-up dedicated adrenal CT or MRI in 12 months to assess stability. Reading Location: [facility]
--- NOTE | 2025-03-18 19:02 | RAD_ITS ---
PROCEDURE: CHEST 1 VIEW (PORTABLE) 03/18/2025 REASON FOR EXAM: LINE PLACEMENT TECHNIQUE: Frontal view of the chest. COMPARISON: Earlier same day 03/18/2025. FINDINGS: Endotracheal tube in stable positioning, tip roughly 2.7 cm above the abigail. Enteric tube appears in stable positioning, distal tip collimated from view. Newly placed right subclavian approach central venous catheter, tip at the lower SVC. Stable cardiomegaly. Unchanged lung aeration. No acute osseous abnormality. RAD/Chest 1 View (Portable) IMPRESSION: 1. New right subclavian approach central venous catheter, tip at the lower SVC. 2. Stable positioning of the endotracheal and enteric tubes. 3. Unchanged lung aeration. Stable cardiomegaly. Reading Location: [facility]
--- NOTE | 2025-03-18 19:15 | ED.RN ---
dr wilkerson notified that this RN is unable to obtain accurate blood pressure. Cuff has been changed, cords and placements on body has been changed. We attempted BP check on lower extremities and were given extremely high blood pressures with systolic in 250s.
--- NOTE | 2025-03-18 19:30 | ED.RN ---
THIS RN ASSUMED CARE AT THIS TIME.
--- NOTE | 2025-03-18 19:38 | PCM.HP.STD ---
HPI - General General Date of Admission: 03/18/25 Date of Service: 03/18/25 Chief Complaint: Altered mental status HPI Narrative OSCAR ROMAN, is a 75-year-old female with a history of restless leg syndrome, hypertension, depression, hypertension presented [facility] ED 03/18/2025 due to altered mental status. Patient's last known well was 1600 on Monday, March 17. In ED patient had some slow speech and was noted to have bruise over the left lateral periorbital region after a fall out of bed. In ED temp 96.4, heart rate of 68 with a blood pressure 79/63, respiratory rate 16 and pulse ox 79% on room air. CBC with white count of 9.9, hemoglobin 15.8. CMP with a sodium of 131, BUN of 51 and a creatinine of 2.22 up from 1.03 a week ago with AST of 86, ALT 61 and alk phos 162. Lactic acid of 1.1, TSH within normal limits, chest x-ray with bilateral low lung volumes. CT head no acute process. UA only positive for 1+ bacteria and urine. Patient given IV fluids initially with improvement in blood pressure however became hypotensive again and patient also became somnolent and she had a CO2 capnography that showed a CO2 of 80, patient intubated in the ED with a postintubation ABG revealing a pCO2 of 59.2 and a pH of 7.32 with a bicarb of 30. Afterwards pressure 54/42 so patient had central line placed in the ED. 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 Patient sent down for a CTA given her hypotension without other identifiable source to assess if this may have ruptured. CTA pending formal read however does not appear patient has acute rupture. Hospitalist contacted for admission. Patient evaluated at bedside after CTA. Family members present at bedside including cousin, sister, granddaughter who is POA. Family reports she has had shortness of breath recently and a dry cough which is why she had the CTA, they were currently working her up and she was supposed see Dr. Reddy with cardiology but has not had that appointment yet. Cousin at bedside reported the only other to think she complained of for being afraid to fall asleep but she felt like she stopped breathing when she sleeps and some nausea over the past couple days but she had not commented on any diarrhea or abdominal pain and had not been having any vomiting. [facility] Medical History Infection and inflammatory reaction due to other internal joint prosthesis, initial encounter Insomnia MRSA (methicillin resistant staph aureus) culture positive Wears glasses Post-menopausal Depression Anxiety Walker as ambulation aid Ambulates with cane Arthritis High cholesterol Back pain Restless legs Former smoker Shortness of breath on exertion History of pain when walking History of edema Hypertension Home Medications ?Medication ?Instructions ?Recorded ?Last Taken ?Type losartan 50 mg tablet 50 mg PO BID BP 09/19/14 09/13/24 History melatonin 5 mg tablet 10 mg PO QHS INSOMNIA 09/19/14 Unknown History bupropion HCl 300 mg 24 hr tablet, 150 mg PO DAILY DEPRESSION 06/11/20 09/13/24 History extended release gabapentin 600 mg tablet 600 mg PO QHS SLEEP 06/11/20 Unknown History mirtazapine 15 mg tablet 15 mg PO QHS INSOMNIA 06/24/20 06/23/20 20:00 History duloxetine 30 mg capsule,delayed 30 mg PO DAILY DEPRESSION 09/11/24 09/13/24 History release (Cymbalta) pramipexole 0.5 mg tablet 0.5 mg PO DINNER RLS 09/11/24 Unknown History aspirin 81 mg chewable tablet 81 mg PO BID blood thinner #0 tabs 09/17/24 Unknown Rx loperamide 2 mg capsule 2 mg PO Q2H PRN PRN DIARRHEA #0 09/17/24 Unknown Rx caps albuterol sulfate 90 mcg/actuation 2 inh inhalation Q4H PRN shortness 03/18/25 Unknown History aerosol inhaler of breath or wheezing carvedilol 3.125 mg tablet 3.125 mg PO BID 03/18/25 Unknown History doxycycline hyclate 100 mg capsule 100 mg PO BID abx 03/18/25 Unknown History indapamide 2.5 mg tablet 2.5 mg PO DAILY diuretic 03/18/25 Unknown History naproxen sodium 220 mg tablet 440 mg PO DAILY PRN pain 03/18/25 Unknown History potassium citrate 10 mEq (1,080 10 meq PO DAILY 03/18/25 Unknown History mg) tablet,extended release pramipexole 1 mg tablet 1 mg PO QHS restless leg 03/18/25 Unknown History spironolactone 50 mg tablet 50 mg PO DAILY 03/18/25 Unknown History Allergy/AdvReac Type Severity Reaction Status Date / Time Penicillins Allergy Anaphylaxis Verified 03/18/25 14:54 Surgical History History of reverse total replacement of right shoulder joint History of surgery Hx of colonoscopy Hx of right cataract extraction Hx of left cataract extraction History of partial colectomy Hx of appendectomy Hx of total hip arthroplasty Hx of total shoulder replacement Hx of lumbar discectomy Hx of total shoulder replacement Hx of total hip arthroplasty Social History household members: none Smoking Status: Former smoker alcohol intake: never substance use type: does not use ROS ROS Narrative Unable to obtain ROS secondary to patient mental status Vital Signs Vital Signs Vital Signs: 03/18/25 14:56 03/18/25 15:03 03/18/25 15:47 Temperature 96.4 F L 88.9 F L 90.6 F L Temperature Source Axillary Core Core Pulse Rate 68 65 62 Respiratory Rate 16 24 H 19 H Blood Pressure 79/63 L 87/70 L 103/79 Blood Pressure Mean 68 75 87 Pulse Ox 79 93 96 Oxygen Delivery Method Room Air Nasal Cannula Nasal Cannula Oxygen Flow Rate (L/min) 4 4 EtCo2 - Document during CPR and with ROSC 03/18/25 16:00 03/18/25 17:00 03/18/25 17:30 Temperature Temperature Source Pulse Rate 89 63 Respiratory Rate 17 Blood Pressure 92/71 102/63 Blood Pressure Mean 78 76 Pulse Ox 100 Oxygen Delivery Method Nasal Cannula Oxygen Flow Rate (L/min) 4 EtCo2 - Document during CPR and with ROSC 79 03/18/25 17:48 03/18/25 17:51 03/18/25 17:52 Temperature Temperature Source Pulse Rate 58 L 53 L Respiratory Rate 11 L Blood Pressure 89/64 L 88/62 L Blood Pressure Mean 72 70 Pulse Ox 88 90 Oxygen Delivery Method Nasal Cannula Oxygen Flow Rate (L/min) 4 EtCo2 - Document during CPR and with ROSC 03/18/25 18:00 03/18/25 18:00 03/18/25 18:34 Temperature Temperature Source Pulse Rate 60 61 Respiratory Rate 16 14 Blood Pressure 54/42 L 73/49 L Blood Pressure Mean 46 57 Pulse Ox 99 99 Oxygen Delivery Method Mechanical Ventilator Oxygen Flow Rate (L/min) EtCo2 - Document during CPR and with ROSC 03/18/25 19:18 Temperature Temperature Source Pulse Rate Respiratory Rate Blood Pressure 240/120 H Blood Pressure Mean 160 Pulse Ox Oxygen Delivery Method Oxygen Flow Rate (L/min) EtCo2 - Document during CPR and with ROSC Weight Weight: 112.2 kg Body Mass Index (BMI) 38.7 Physical Exam Narrative General: Patient intubated and sedated HEENT: Atraumatic, normocephalic Eyes: Anicteric, normal conjunctiva, extraocular movements grossly intact Neck: Supple Respiratory: Diminished bilaterally, mechanically ventilated Cardiovascular: Regular rate and rhythm GI: Soft, nondistended Extremities: No significant peripheral edema Musculoskeletal: Not moving extremity spontaneously Neuro: Unable to participate in neuroexam Skin: No overt rashes appreciated Psych: Unable to cooperate secondary to intubation and sedation Results Lab / Micro Data 03/18/25 15:15 03/18/25 15:15 Labs: Laboratory Results - last 24 hr 03/18/25 15:15: WBC 9.9, RBC 5.40, Hgb 15.8 H, Hct 50.5 H, MCV 93.5, MCH 29.3, MCHC 31.3 L, RDW Std Deviation 49.9 H, RDW Coeff of Terry 14.6, Plt Count 218, MPV 10.4, Immature Gran % (Auto) 0.900, Neut % (Auto) 84.3 H, Lymph % (Auto) 7.4 L, [place] % (Auto) 7.0, Eos % (Auto) 0.0, Baso % (Auto) 0.4, Absolute Neuts (auto) 8.4 H, Absolute Lymphs (auto) 0.73 L, Nucleated RBC % 0, PT 12.4, INR 0.9, APTT 27.8, Sodium 131 L, Potassium 4.4, Chloride 84 L, Carbon Dioxide 32.8 H, Anion Gap 14, BUN 51 H, Creatinine 2.22 H, Estim Creat Clear Calc 27.85 L, Est GFR (MDRD) Non-Af 22 L, BUN/Creatinine Ratio 22.8 H, Glucose 115 H, Lactic Acid 1.1, Calcium 9.7, Total Bilirubin 0.35, AST 86 H, ALT 61 H, Alkaline Phosphatase 162 H, Total Protein 7.7, Albumin 4.1, Globulin 3.6, Albumin/Globulin Ratio 1.1, TSH 1.650 03/18/25 15:24: Urine Color Yellow, Urine Clarity Clear, Urine pH 6.0, Ur Specific Gregory 1.015, Urine Protein 30 H, Urine Glucose (UA) Normal, Urine Ketones Negative, Urine Occult Blood Negative, Urine Nitrite Negative, Urine Bilirubin Negative, Urine Urobilinogen Normal, Ur Leukocyte Esterase Negative, Urine RBC 0-5 SEEN, Urine WBC 0-5 SEEN, Ur Squamous Epith Cells 0-5 SEEN, Ur Transition Epith Cell 0-5 SEEN, Urine Bacteria 1+, Urine Mucus 0 SEEN ABG Data ABG results: ABG 03/18/25 18:22 Specimen Type ART Sample Site L Brach pH 7.32 L Bicarbonate Actual 30.3 H Total CO2 32 Base Excess 4 H O2 Saturation 97 O2 % 40.0 ABG pCO2 59.2 H ABG pO2 101 H Respiration Rate 14 O2 Delivery Device Adult Vent Vent Mode AC/VC Tidal Volume 400.0 POC PEEP 5 Imaging Radiology Impression Brain CT 03/18/25 15:30 IMPRESSION: No acute intracranial process. Reading Location: [facility] Chest X-Ray 03/18/25 15:35 IMPRESSION: Bilateral low lung volumes. No acute cardiopulmonary abnormality. Reading Location: [id number] Chest X-Ray 03/18/25 17:44 IMPRESSION: 1. Endotracheal tube tip 3.1 cm above the abigail. 2. Enteric tube appropriately positioned terminating in the upper midabdomen. 3. Cardiomegaly, with increased vascular markings and possible interstitial edema. Reading Location: [facility] X-Ray 03/18/25 18:00 IMPRESSION: Enteric tube terminates appropriately within the stomach. Persistent IV contrast opacifying the kidneys suggesting medical renal disease with delayed excretion. Reading Location: [facility] Assessment & Plan Assessment/Plan (1) Shock: (2) Acute respiratory failure with hypoxia and hypercapnia: PLAN: Plan # Undifferentiated shock -Patient presented with altered mental status and new onset renal failure, blood pressure of 79/63 which initially responded to fluids however subsequently went down to 54/42 requiring central line placement and initiation of pressors, hypothermia with temp at 89 and hypoxic hypercapnic respiratory failure of new onset requiring intubation -She had CT chest/abdomen/pelvis yesterday 03/17 due to shortness of breath which only showed infrarenal saccular aortic aneurysm measuring 3.8 x 4.5 x 5.5 without any acute abnormalities -Given patient's hypotension/shock advised she have repeat CTA in the ED to verify no aneurysm rupture and repeat CTA does not have any overt evidence for rupture -Official read pending for any other new abnormalities - Blood and urine culture sent -Sputum culture if able -Will check viral panel -White blood cell count within normal limits and workup not revealing for infectious source at this time with UA with 1+ bacteria but no elevated white cells or leuk esterase or nitrite -Given patient's constellation of hypothermia, respiratory failure, hypotension, altered mental status, new onset renal failure do feel it is reasonable to cover patient with antibiotics while awaiting culture results given cause of shock is still unclear and cannot rule out septic component at this time -Did order Pro-Kwesi, ESR, CRP however due to procedures and imaging these have yet to be obtained, will not delay antibiotics while awaiting labs, de-escalate as appropriate -Broad-spectrum antibiotics to be started -Patient be admitted to the ICU, shirt sorter consulted - Patient received 1 L of IV fluids, not given further IV fluids due to recent diagnosis of heart failure and chest x-ray coronary congestion # Acute hypoxic hypercapnic respiratory failure -Patient came in altered, developed progressive hypoxia and was found to be hypercapnic, ultimately required intubation and sedation -Admit to ICU -Workup as above -Scheduled nebs -Will check proBNP - [employer] consult #Acute renal failure - Creatinine was 1.03 a week ago and is up to 2.22 -Patient was given IV fluids in the ED but and then a quantity due to her recent diagnosis of heart failure -Day catheter in place -I's and O's -Will obtain urine studies -Low threshold for nephrology consultation #Hx left shoulder prosthetic infection - Reportedly patient still on antibiotics long-term for this previous infection of left shoulder prosthesis - Reportedly had not had any new or acute complaints regarding this and was just on long-term antibiotics - Will be on broad-spectrum antibiotics #Hx HFpEF - Echocardiogram 03/04/2025 with stage I diastolic dysfunction and EF of 70% -Daily weights, I's and O's # Infrarenal aneurysm -CTA of the abdomen pelvis yesterday showed infrarenal saccular aortic aneurysm measuring 3.8 x 4.5 x 5.5, CT in the ED showed stability - Will need outpatient follow-up # Restless leg syndrome - Hold home medications while patient intubated and sedated #Hypertension - Patient came in hypotensive, hold home blood pressure medications #Depression/anxiety -Continue home medications once able #DVT ppx: SCDs Emili Lee MD Time spent in the patient's overall evaluation,decision-making process, review of diagnostic data, adjustment of management, discussion with other providers, nursing nursing and ancillary staff involved in patient's care documentation, 100 Minutes Sepsis Attestation Sepsis Alert: Yes Sepsis Attestation: Agree w/Sepsis Date exam was performed: 03/18/25 Time exam was performed: 19:00 Possible Source of Sepsis: Unknown Sepsis Organ Dysfunction Criteria Present: SBP < 90 mmHg or MAP < 65 mmHg, Acute Respiratory Failure (New need for BiPAP/CPAP or MV), Creatinine > 2.0 mg/dL and New/Unexplained change in mental status Fluid Resuscitation Fluid resuscitation indicated?: Yes Fluid Resuscitation ordered: Lesser volume fluid bolus ordered Amount of fluid ordered: 1,000 Reason for lesser fluid bolus:: Concern for fluid overload and Heart failure Sepsis Note Date exam was performed: 03/18/25 Time exam was performed: 20:30 Sepsis Attestation: Sepsis re-evaluation was performed Response to fluids: Non Fluid responsive hypotension and Vasopressors started Charges/Coding Visit Charges Inpatient E&M: 72218 Init Hosp L3
--- NOTE | 2025-03-18 19:41 | ED.RN ---
This RN unable to obtain a blood pressure from the monitor. Manual blood pressures to be obtained on the patient. Dr. Levy and Dr. Lee aware of inability to obtain blood pressures from the monitor. Dr. Levy advised for an ART line placement. This RN informed that ART line placement will need to be performed in the ICU. Dr. Lee made aware and explained to this RN that Dr. Lee would like to wait for the official read of the CT scan prior to admitting orders to the ICU.
--- NOTE | 2025-03-18 20:00 | ED.RN ---
THIS RN ON THE PHONE GIVING ICU REPORT ON THE PATIENT. MEDIC AT BEDSIDE TO COMPLETE A MANUAL BLOOD PRESSURE, UNABLE TO OBTAIN. ANOTHER RN AT BEDSIDE TO ATTEMPT TO OBTAIN A MANUAL BLOOD PRESSURE. PATIENT'S PULSE OBTAINED WITH A DOPPLER TO VERIFY THE PATIENT HAD A PULSE. PATIENT HAS NO RESPONSE TO PAINFUL STIMULI. EYES REACTIVE TO LIGHT. DR. PRESSLEY ENTERED THE ROOM AND UPDATED ON THE INABILITY TO OBTAIN A BLOOD PRESSURE. DR. PRESSLEY REQUESTED DR. HUGHES AT THE BEDSIDE. HYPOTENSIVE READING OBTAINED BY THE MONITOR. DR. HUGHES REQUESTED LEVO BE INITIATED AGAIN. SEE MAR DOCUMENTATION. DR. PRESSLEY INFORMED THIS RN THAT DR. PRESSLEY DOES NOT HAVE THE CREDENTIALS TO INITIATE AN ART LINE. THIS RN INFORMED DR. PRESSLEY THAT THE ED DOES NOT HAVE THE PROPER MONITORS TO INITIATE AND SET UP AN ART LINE. DR. PRESSLEY REQUESTED THAT THE PATIENT STAYS IN THE ED UNTIL THERE IS A SOLUTION.
--- NOTE | 2025-03-18 20:30 | ED.RN ---
THIS RN UPDATED ICU NURSE ON THE STATUS OF THE PATIENT. DR. PRESSLEY AT BEDSIDE AGAIN TO REASSESS THE PATIENT. DR. PRESSLEY INFORMED THIS RN THAT A RT WORKING CAN INITIATE AN ART LINE. HAT MAKER, CHARGE NURSE, AND DR. PRESSLEY ALL AT BEDSIDE TO DETERMINE THAT THE PATIENT SHOULD BE TRANSPORTED TO THE ICU FOR THE RT TO INITIATE THE ART LINE AND HAVE THE ABILITY TO CALIBRATE THE ART LINE APPROPRIATELY IN THE ICU WITH THE APPROPRIATE MONITORS.
[2025-03-18 20:54] LABS: CRP 5.32 mg/L (0.0-3.0); Procalcitonin 0.10 ng/mL (<=0.10)
[2025-03-18] MEDS: 0.9% Saline Lock 10 ML Syringe IV ×2 (21:38→22:09)
[2025-03-18] MEDS: Vancomycin HCl 2,000 MG in 0.9% Normal Saline (500mL Bag) 500 ML 250 MG IV (21:39)
[2025-03-18] MEDS: Chlorhexidine 15 ML PO (21:40)
[2025-03-18] MEDS: Meropenem 1 GM in 0.9% Normal Saline (100mL MB+) 100 ML IV (21:40)
--- NOTE | 2025-03-18 21:51 | PCM.RX.CS ---
Consult Antibiotic Management Pharmacy has been consulted to manage selected antibiotic: Vancomycin Type of Intervention Type of Consult: New start Suspected Infection Suspected Infection: Sepsis Labs Labs: Sodium 131 mmol/L (133-145) L 03/18/25 15:15 Potassium 4.4 mmol/L (3.3-5.1) 03/18/25 15:15 Chloride 84 mmol/L (98-108) L 03/18/25 15:15 Carbon Dioxide 32.8 mmol/L (21.0-32.0) H 03/18/25 15:15 Anion Gap 14 (5-15) 03/18/25 15:15 BUN 51 mg/dL (4-19) H 03/18/25 15:15 Creatinine 2.22 mg/dL (0.70-1.20) H 03/18/25 15:15 Est GFR (MDRD) Non-Af 22 (>60) L 03/18/25 15:15 BUN/Creatinine Ratio 22.8 RATIO (10-20) H 03/18/25 15:15 Glucose 115 mg/dL (70-99) H 03/18/25 15:15 Estimated Creatinine Clearance Estimated Creatinine Clearance: 27.85 Goal Trough Goal Trough: 15-20 mcg/mL Pharmacy Plan for Drug Dosing Pharmacy Plan for Drug Dosing: NEW START IV VANCOMYCIN Consulting Physician: Dr. Lee Indication: Sepsis Goal Trough: 15-20 SrCr: 2.22 CrCl: 27.85 Comments: Received loading dose 2000mg x1 @ 21:39 03/18/25 Vancomycin Dose: 1250mg Q24H to start @ 21:30 03/19/25 Pending Level: 03/20/25 @ 21:00 prior to 3rd dose Pharmacy Service will continue to monitor and adjust dosing as required. Follow-Up Labs Follow-Up Labs: Trough: Vancomycin (03/20/25 @ 21:00)
[2025-03-18 22:16] LABS: Pro- Brain NATRIURETIC PEPTIDE 2155 pg/mL (<=1800)
--- NOTE | 2025-03-18 22:37 | NURSING ---
2041- pt received from ER/ brought to bedside by Antonio Arango. Was informed by Antonio Arango RN that last blood pressure was manually checked and , had previously received in report that blood pressures were not being able to be obtained due to either severely low or high readings, Dr. Lee and Dr. Levy aware prior to arrival to ICU. Antonio Arango RN had told this RN that Dr. Lee wanted an ART line placed in patient prior to pt coming up to ICU but ER staff unable to place line as their equipment was unable to computer systems support specialist to an ART line. After patient hooked up to ICU monitor, SBP's reading 190's to 200's however patient unresponsive. Levo was running at 10mcg/min. BP's unable to be obtained between [id number] as Rt was bedside attempting arterial line. 2199- this RN was able to attempt a manual BP that read 220/104, levo was decreased cautiously to 5mcg/min at this time by Vika Grimes RN. 2214- BP's not taking due to anesthesia being bedside and attempting arterial line placement.
--- NOTE | 2025-03-18 22:56 | EKG12_ITS ---
Test Reason : rhythm change Blood Pressure : */* mmHG Vent. Rate : 81 BPM Atrial Rate : 81 BPM P-R Int : 224 ms QRS Dur : 110 ms QT Int : 414 ms P-R-T Axes : 48 82 63 degrees QTcB Int : 480 ms Sinus rhythm with 1st degree A-V block with Premature atrial complexes Nonspecific ST and T wave abnormality Abnormal ECG When compared with ECG of 12-Sep-2024 08:04, Premature atrial complexes are now Present Confirmed by ALBA COTTER, RUPA ([id number]), make up editor TRINITY ORTIZ ([id number]) on 03/19/2025 1:52:40 PM Referred By: Trever Abbasi NP Confirmed By: RUPA WILLIS MD
--- OUTSIDE RECORDS SUMMARY | 2025-03-18 23:03 | XMS RPT_ITS | CCD ---
Author Organization [facility] Inform ion Partnership [facility] Care Team Providers Care Spin Table Operator Name Role Phone Hernando Grimes Primary Care Provider Jh Ferraro (Hist) Primary Care Provider GREGG STEVENS PAC Attending Unavailable GREGG STEVENS Primary Care Unavailable GREGG STEVENS PAC Admitting Unavailable HERNANDO GRIMES Consulting Unavailable PROVIDER, UNKNOWN Consulting Unavailable Dr. Hernando Grimes MD Primary Care Provider Elayne COTTER, Dr. Toure Attending Provider Dr. Fahad Cavanaugh MD Referring Provider Dr. Fahad Cavanaugh MD Admit Provider Dr. Fahad Cavanaugh MD Other Provider Dr. Jermaine Simms DO Other Provider Dr. Luke Montgomery MD Other Provider Dr. Abdirashid Garcia DO Attending Provider [place] Dr. Emili Beckham MD Attending Provider Dr. Emili Lee MD Other Provider Dr. Fahad Cavanaugh MD Attending Provider Dr. Jamie Jiang DO Other Provider Dr. Sixto Andrade MD Other Provider Dr. Jamie Jiang DO Attending Provider PHYSICIAN, NONE Attending Unavailable HERNANDO GRIMES MD Primary Care Unavailable Myron COTTER, Dr. Rodrigo Winters Admit Provider Myron COTTER, Dr. Rodrgio Winters Attending Provider [phone] Myron COTTER, Dr. Rodrigo Winters Referring Provider Cornelio COTTER, Dr. Galvin Primary Care Provider Cornelio COTTER, Dr. Galvin Attending Provider [phone] Cornelio COTTER, Dr. Galvin Referring Provider [phone] Martin COTTER, Dr. Concepcion Attending Provider Grimes, Hernando Primary Care Unavailable Carlene Salazar Attending Unavailable Grimes, Hernando Primary Care Unavailable Myron, Rodrigo Chi Referring Unavailable Myron, Rodrigo Chi Attending Unavailable Myron, Rodrigo Chi Admitting Unavailable Lupe, Sixto Consulting Unavailable Grimes, Hernando Primary Care Unavailable Mao, Fahad Referring Unavailable Tejal Holly Attending Unavailabl e Grimes, Hernando Primary Care Unavailable Mao, Fahad Admitting Unavailable Ramonky, Jamie Attending Unavailable Mao, Fahad Referring Unavailable Lee, Emili Consulting Unavailable Tereletsky, Jamie Consulting Unavailable Lupe, Sixto Consulting Unavailable Mao, Fahad Consulting Unavailable Lee, Emili Attending Unavailable Mao, Fahad Referring Unavailable Jermaine Simms Consulting Unavailable Grimes, Hernando Primary Care Unavailable Mao, Fahad Admitting Unavailable Abdirashid Garcia Attending Unavailable Luke Montgomery Consulting Unavailable Mao, Fahad Consulting Unavailable Grimes, Hernando Primary Care Unavailable Grimes, Hernando Referring Unavailable Grimes, Hernando Attending Unavailable Grimes, Hernando Primary Care Unavailable Grimes, Hernando Referring Unavailable Grimes, Hernando Attending Unavailable Grimes, Hernando Primary Care Unavailable Grimes, Hernando Referring Unavailable Grimes, Hernando Attending Unavailable Grimes, Hernando Primary Care Unavailable Lee, Emili Attending Unavailable Lee, Emili Admitting Unavailable Grimes, Hernando Primary Care Unavailable Grimes, Hernando Referring Unavailable Grimes, Hernando Attending Unavailable Lee, Emili Consulting Unavailable Lee, Emili Consulting Unavailable Lee, Emili Attending Unavailable Grimes, Hernando Referring Unavailable Grimes, Hernando Attending Unavailable Grimes, Hernando Primary Care Unavailable Mao, Fahad Referring Unavailable Grimes, Hernando Primary Care Unavailable Mao, Fahad Admitting Unavailable Mao, Fahad Attending Unavailable Lee, Emili Consulting Unavailable Tereletsky, Jamie Consulting Unavailable Lupe, Sixto Consulting Unavailable Cam COTTER, Dr. Albarran Emergency Provider Jesus COTTER, Dr. Mock Admit Provider [phone] Jesus COTTER, Dr. Mock Attending Provider [phone] Allergies Allergy Classification Reported Allergen(s) Allergy Type Date of Onset Reaction(s) Facility (13 sources) Penicillins; Translations: [Penicillins] Propensity to adverse reactions 6 Shortness of Breath [facility] Medications Current Medications Medication Drug Class(es) Dates Sig (Normalized) Sig (Original) [id number] 200 actuat albuterol 0.09 mg/actuat metered dose inhaler (1 source) beta2-Adrenergic Agonist Start: 03-18-2025 Albuterol Sulfate 90 mcg/actuation HFA aerosol inhaler Active 2 NMA INHALATION Q4H as needed for shortness of breath or wheezing March 18, 2025 12:00am aspirin 81 mg chewable tablet (16 sources) Platelet Aggregation Inhibitor, Nonsteroidal Anti-inflammatory Drug Start: 09-17-2024 take 1 tablet by mouth twice daily Aspirin 81 mg Tablet,Chewable Active 81 mg PO TWICE A DAY 0 0 September 17, 2024 12:00am blood thinner Start: 06-25-2020 End: 09-11-2024 take 1 tablet by mouth twice daily at mealtime Aspirin 81 MG tablet,chewable Discontinued 81 mg PO TWICE DAILY WITH MEALS 60 0 June 25, 2020 1:00am September 11, 2024 2:57pm Take 81 mg aspirin twice daily for 4 weeks postoperatively for DVT prophylaxis 24 hr buPROPion hydrochloride 300 mg extended release oral tablet (11 sources) Aminoketone Start: 06-11-2020 take 2 tablets by mouth once daily Bupropion Hcl 300 MG tablet extended release 24 hr Active 150 mg PO DAILY June 11, 2020 1:00am DEPRESSION Start: 06-11-2020 take 300 mg by mouth once marcia y Bupropion Hcl Active 300 MG PO DAILY June 11, 2020 1:00am carvedilol 3.125 mg oral tablet (1 source) alpha-Adrenergic Emma, beta-Adrenergic Emma Start: 03-18-2025 take 1 tablet by mouth twice daily Carvedilol 3.125 mg tablet Active 3.125 mg PO TWICE A DAY March 18, 2025 12:00am doxycycline hyclate 100 mg oral capsule (1 source) Tetracycline-class Drug Start: 03-18-2025 take 1 capsule by mouth twice daily Doxycycline Hyclate 100 mg capsule Active 100 mg PO TWICE A DAY March 18, 2025 12:00am abx DULoxetine 30 mg delayed release oral capsule (5 sources) Serotonin and Norepinephrine Reuptake Inhibitor Start: 09-11-2024 take 1 capsule by mouth once daily Duloxetine (Cymbalta) 30 mg capsule,delayed release(DR/EC) Active 30 mg PO DAILY September 11, 2024 12:00am DEPRESSION gabapentin 600 mg oral tablet (11 sources) Anti-epileptic Agent Start: 06-11-2020 take 1 tablet by mouth at bedtime Gabapentin 600 MG tablet Active 600 mg PO AT BEDTIME June 11, 2020 1:00am SLEEP indapamide 2.5 mg oral tablet (12 sources) Thiazide-like Diuretic Start: 03-18-2025 take 1 tablet by mouth once daily Indapamide 2.5 mg tablet Active 2.5 mg PO DAILY March 18, 2025 12:00am diuretic Start: 04-12-2017 End: 03-18-2025 take 1 tablet by mouth once daily Indapamide 1.25 MG tablet Discontinued 2.5 mg PO DAILY April 12, 2017 12:00am March 18, 2025 7:50pm BP loperamide hydrochloride 2 mg oral capsule (5 sources) Opioid Agonist Start: 09-17-2024 take 1 capsule by mouth every two hours as needed for diarrhea Loperamide 2 mg Capsule Active 2 mg PO EVERY 2 HOURS NEEDED as needed for DIARRHEA 0 0 September 17, 2024 12:00am losartan potassium 50 mg oral tablet (11 sources) Angiotensin 2 Receptor Emma Start: 09-19-2014 take 1 tablet by mouth twice daily Losartan 50 MG tablet Active 50 mg PO TWICE A DAY September 19, 2014 12:00am BP melatonin 5 mg oral tablet (11 sources) Start: 09-19-2014 take 2 tablets by mouth at bedtime Melatonin 5 MG tablet Active 10 mg PO AT BEDTIME September 19, 2014 12:00am INSOMNIA Start: 09-19-2014 take 10 mg by mouth at bedtime Melatonin Active 10 MG PO AT BEDTIME September 19, 2014 12:00am mirtazapine 15 mg oral tablet (11 sources) Start: 06-24-2020 take 1 tablet by mouth at bedtime Mirtazapine 15 MG tablet Active 15 mg PO AT BEDTIME June 24, 2020 1:00am INSOMNIA naproxen sodium 220 mg oral tablet (12 sources) Nonsteroidal Anti-inflammatory Drug Start: 03-18-2025 take 2 tablets by mouth once daily as needed for pain Naproxen Sodium 220 mg tablet Active 440 mg PO DAILY as needed for pain March 18, 2025 12:00am Start: 09-19-2014 End: 10-02-2014 take 2 tablets by mouth twice daily as needed for pain Naproxen Sodium (Aleve) 220 MG tablet Discontinued 440 mg PO TWICE DAILY NEEDED as needed for Pain September 19, 2014 12:00am October 02, 2014 2:48pm potassium citrate 10 meq extended release oral tablet (1 source) Start: 03-18-2025 take 1 tablet by mouth once daily Potassium Citrate 10 mEq (1,080 mg) tablet extended release Active 10 meq PO DAILY March 18, 2025 12:00am pramipexole dihydrochloride 1 mg oral tablet (17 sources) Nonergot Dopamine Agonist Start: 03-18-2025 take 1 tablet by mouth at bedtime Pramipexole 1 mg tablet Active 1 mg PO AT BEDTIME March 18, 2025 12:00am restless leg Start: 09-11-2024 take 1 tablet by eugene th at dinner Pramipexole 0.5 mg tablet Active 0.5 mg PO WITH DINNER September 11, 2024 12:00am RLS Start: 04-12-2017 End: 03-18-2025 take 2 tablets by mouth at bedtime Pramipexole (Mirapex) 0.5 MG tablet Discontinued 1 mg PO AT BEDTIME April 12, 2017 12:00am March 18, 2025 7:49pm RLS Start: 04-12-2017 take 1 tablet by eugene th at bedtime Pramipexole (Mirapex) 0.5 MG tablet Active 0.5 MG PO AT BEDTIME April 12, 2017 12:00am spironolactone 50 mg oral tablet (1 source) Aldosterone Antagonist Start: 03-18-2025 take 1 tablet by mouth once daily Spironolactone 50 mg tablet Active 50 mg PO DAILY March 18, 2025 12:00am Completed/Discontinued Medications Medication Drug Class(es) Dates Sig (Normalized) Sig (Original) acetaminophen 500 mg oral tablet (20 sources) Start: 09-17-2024 End: 03-18-2025 take 2 tablets by mouth every eight hours Acetaminophen 500 mg Tablet Discontinued 1000 mg PO EVERY 8 HOURS 1 0 September 17, 2024 12:00am March 18, 2025 7:50pm pain Start: 06-25-2020 End: 09-11-2024 Acetaminophen 500 MG tablet Discontinued 1000 mg PO EVERY 8 HOURS 0 June 25, 2020 1:00am September 11, 2024 2:53pm Do not take more than 3000 mg Tylenol in a 24-hour period. Start: 06-25-2020 take 3000 mg by mout h every eight hours Acetaminophen Active 1000 MG PO EVERY 8 HOURS June 25, 2020 1:00am Do not take more than 3000 mg Tylenol in a 24-hour period. Start: 04-27-2017 End: 06-25-2020 take 2 tablets by mouth every eight hours Acetaminophen 500 MG tablet Discontinued 1000 mg PO EVERY 8 HOURS 90 0 April 27, 2017 12:00am June 25, 2020 9:07am Start: 04-27-2017 End: 06-25-2020 take 1000 mg by mouth every eight hours Acetaminophen Discontinued 1000 MG PO EVERY 8 HOURS 90 April 27, 2017 12:00am June 25, 2020 9:07am acetaminophen 325 mg / HYDROcodone bitartrate 5 mg oral tablet (20 sources) Opioid Agonist Start: 09-19-2014 End: 10-10-2014 Hydrocodone-Acetaminophen 1 TABLET tablet Discontinued 1 - 2 {tbl} PO EVERY 6 HOURS NEEDED as needed for Mild-moderate pain (scale 1-5) 90 0 October 02, 2014 12:00am October 10, 2014 12:16pm Start: 09-19-2014 End: 10-10-2014 take 1 tablet by mouth every six hours as needed Hydrocodone-Acetaminophen Discontinued 1 - 2 TABLET PO EVERY 6 HOURS NEEDED 90 October 02, 2014 12:00am October 10, 2014 12:16pm amLODIPine 10 mg oral tablet (5 sources) Dihydropyridine Calcium Channel Emma Start: 09-11-2024 End: 03-18-2025 take 5 mg by mouth twice daily Amlodipine 10 mg tablet Discontinued 5 mg PO TWICE A DAY September 11, 2024 12:00am March 18, 2025 7:50pm BP atorvastatin 20 mg oral tablet (11 sources) HMG-CoA Reductase Inhibitor Start: 06-11-2020 End: 09-11-2024 take 1 tablet by mouth at bedtime Atorvastatin 20 MG tablet Discontinued 20 mg PO AT BEDTIME June 11, 2020 1:00am September 11, 2024 2:57pm caffeine 200 mg oral tablet (11 sources) Central Nervous System Stimulant, Methylxanthine Start: 09-19-2014 End: 04-27-2017 take 1 tablet by mouth once daily Caffeine (No Doz) 200 MG tablet Discontinued 200 mg PO DAILY September 19, 2014 12:00am April 27, 2017 12:01pm docusate sodium 50 mg / sennosides, longterm 8.6 mg oral tablet (16 sources) Start: 09-17-2024 End: 03-18-2025 Sennosides-Docusa te Sodium (Stimulant Laxative Plus) 8.6-50 mg Tablet Discontinued 1 {tbl} PO DAILY 0 0 September 17, 2024 12:00am March 18, 2025 7:50pm stool softener Start: 06-25-2020 End: 09-11-2024 Sennosides-Docusate Sodium 1 TABLET tablet Discontinued 2 {tbl} PO TWICE A DAY 14 June 25, 2020 1:00am September 11, 2024 2:54pm Take until first bowel movement, then as needed Start: 06-25-2020 Sennosides-Doc usate Sodium Active 2 TABLET PO TWICE A DAY June 25, 2020 1:00am Take until first bowel movement, then as needed famotidine 20 mg oral tablet (16 sources) Histamine-2 Receptor Antagonist Start: 09-17-2024 End: 03-18-2025 take 1 tablet by mouth once daily Famotidine 20 mg Tablet Discontinued 20 mg PO DAILY 0 0 September 17, 2024 12:00am March 18, 2025 7:50pm reflux Start: 06-25-2020 End: 09-11-2024 take 1 tablet by mouth once daily Famotidine 20 MG tablet Discontinued 20 mg PO DAILY 30 June 25, 2020 1:00am September 11, 2024 2:57pm ibuprofen 400 mg oral tablet (11 sources) Nonsteroidal Anti-inflammatory Drug Start: 09-19-2014 End: 10-02-2014 take 1 tablet by mouth three times daily as needed for pain Ibuprofen 400 MG tablet Discontinued 400 mg PO 3 TIMES DAILY NEEDED as needed for Pain September 19, 2014 12:00am October 02, 2014 2:48pm metoprolol tartrate 25 mg oral tablet (5 sources) beta-Adrenergic Emma Start: 09-17-2024 End: 03-18-2025 take 1 tablet by mouth twice daily Metoprolol Tartrate 25 mg Tablet Discontinued 25 mg PO TWICE A DAY 0 0 September 17, 2024 12:00am March 18, 2025 7:50pm pulse/BP oxyCODONE hydrochloride 5 mg oral tablet (16 sources) Opioid Agonist Start: 09-17-2024 End: 10-01-2024 take 5-10 mg by mouth every four hours as needed for pain Oxycodone 5 mg Tablet Discontinued 5 - 10 mg PO EVERY 4 HOURS NEEDED as needed for Pain Score 4-10 10 2 0 September 17, 2024 October 01, 2024 8:01pm Start: 06-25-2020 End: 06-29-2020 take 5-10 mg by mouth every four hours as needed for pain Oxycodone 5 MG tablet Discontinued 5 - 10 mg PO EVERY 4 HOURS NEEDED as needed for Pain Score 4-10 48 4 0 June 25, 2020 June 28, 2020 1:00am June 29, 2020 1:02am Presence of right artificial hip joint rifAMPin 300 mg oral capsule (5 sources) Rifamycin Antibacterial Start: 09-16-2024 End: 03-18-2025 take 1 capsule by mouth twice daily Rifampin 300 mg Capsule Discontinued 300 mg PO TWICE A DAY 78 39 0 September 16, 2024 12:00am March 18, 2025 7:50pm antibiotic simethicone 66.7 mg/ml oral suspension (5 sources) Start: 09-17-2024 End: 03-18-2025 Simethicone (Infants Simethicone) 40 mg/0.6 mL Drops,Suspension Discontinued 80 mg PO THREE TIMES A DAY as needed for Gas 0 0 September 17, 2024 12:00am March 18, 2025 7:50pm traMADol hydrochloride 50 mg oral tablet (11 sources) Opioid Agonist Start: 06-11-2020 End: 06-25-2020 take 1-10 tablets by mouth every six hours as needed for pain Tramadol 50 MG tablet Discontinued 50 mg PO EVERY 6 HOURS NEEDED as needed for Pain 1-10 Or Fever June 11, 2020 1:00am June 25, 2020 9:07am 200 ml vancomycin 5 mg/ml injection (5 sources) Glycopeptide Antibacterial Start: 09-16-2024 End: 03-18-2025 Vancomycin In Dextrose 5 % 1 gram/200 mL Piggyback Discontinued 1000 mg IV Q24H 3900 39 0 September 16, 2024 12:00am March 18, 2025 7:50pm infection stop date 10/25/24. Dx: shoulder PJI. weekly bmp, cbc, vanc trough, and esr. Fax to [phone]. Routine picc care per protocol. Problems Active Problems Problem Classification Problem Date Documented Da te Episodic/Chronic Acute and unspecified renal failure (2 sources) Acute renal failure syndrome; Translations: [Acute kidney failure, unspecified] 03-18-2025 Episodic Complication of device; implant or graft (16 sources) Infection AND/OR inflammatory reaction due to internal prosthetic device, implant AND/OR graft; Translations: [Infection and inflammatory reaction due to other internal joint prosthesis, initial encounter] Onset: 09-18-2024 09-14-2024 Episodic Congestive heart failure; nonhypertensive (1 source) Acute diastolic (congestive) heart failure; Translations: [Acute diastolic (congestive) heart failure] Onset: 02-13-2025 Chronic Essential hypertension (20 sources) Essential hypertension; Translations: [Hypertensive disorder] Onset: 03-09-2006 03-09-2006 Chronic Fluid and electrolyte disorders (2 sources) Dehydration; Translations: [Dehydration] 03-18-2025 Episodic Genitourinary symptoms and ill-defined conditions (2 sources) Bacteriuria; Translations: [Bacteriuria] 03-18-2025 Episodic Hemorrhoids (1 source) Internal hemorrhoids; Translations: [Internal hemorrhoids without mention of complication] 06-12-2006 Episodic Malaise and fatigue (6 sources) Asthenia; Translations: [Other malaise] 09-18-2024 Episodic Mood disorders (8 sources) Depressive disorder; Translations: [Depression] 09-13-2024 Chronic Comment on above: ON MED Mood disorders (1 source) Mood disorders; Translations: [Depression, unspecified] Onset: 09-18-2024 Nutritional deficiencies (1 source) Vitamin D deficiency, unspecified; Translations: [Vitamin D deficiency, unspecified] Onset: 05-21-2024 Chronic Other circulatory disease (2 sources) Low blood pressure; Translations: [Hypotension, unspecified] 03-18-2025 Episodic Other connective tissue disease (7 sources) History of reverse prosthetic total arthroplasty of right shoulder; Translations: [Presence of right artificial shoulder joint] 09-14-2024 Chronic Other connective tissue disease (1 source) Presence of left artificial shoulder joint; Translations: [Presence of left artificial shoulder joint] Onset: 09-18-2024 Chronic Other connective tissue disease (1 source) Presence of right artificial shoulder joint; Translations: [Presence of right artificial shoulder joint] Onset: 09-18-2024 Chronic Other gastrointestinal disorders (1 source) Diarrhea; Translations: [Diarrhea] 06-12-2006 Episodic Other hereditary and degenerative nervous system conditions (9 sources) Restless legs; Translations: [Restless legs syndrome] Onset: 01-14-2016 01-14-2016 Chronic Comment on above: ON MED Other hereditary and degenerative nervous system conditions (1 source) Restless legs syndrome; Translations: [Restless legs syndrome] Onset: 09-18-2024 Chronic Other injuries and conditions due to external causes (2 sources) Hypothermia; Translations: [Hypothermia, initial encounter] 03-18-2025 Episodic Other lower respiratory disease (1 source) Shortness of breath; Translations: [Shortness of breath] Onset: 03-18-2025 Episodic Other nervous system disorders (8 sources) Neuropathy; Translations: [Polyneuropathy, unspecified] 09-13-2024 Chronic Other nervous system disorders (1 source) Polyneuropathy, unspecified; Translations: [Polyneuropathy, unspecified] Onset: 09-18-2024 Chronic Residual codes; unclassified (20 sources) Insomnia; Translations: [Insomnia, unspecified] Onset: 01-14-2016 01-14-2016 Episodic Respiratory failure; insufficiency; arrest (adult) (2 sources) Acute on chronic hypoxemic and hypercapnic respiratory failure; Translations: [Acute and chronic respiratory failure with hypoxia] 03-18-2025 Chronic Respiratory failure; insufficiency; arrest (adult) (9 sources) Acute respiratory failure; Translations: [Acute respiratory failure with hypoxia] Onset: 03-18-2025 09-18-2024 Episodic Shock (3 sources) Shock, unspecified; Translations: [Shock] Onset: 03-18-2025 03-18-2025 Episodic Spondylosis; intervertebral disc disorders; other back problems (11 sources) Spinal stenosis; Translations: [Spinal stenosis, site unspecified] 06-09-2020 Episodic Unclassified (1 source) Patient encounter status; Translations: [Special screening for malignant neoplasms, colon] Onset: 03-29-2006 03-29-2006 Unclassified (2 sources) In 2 weeks-call for an appointment Unclassified (2 sources) In 2 weeks, call for an appointment Past or Other Problems Problem Classification Problem Date Documented Da te Episodic/Chronic Other non-traumatic joint disorders (1 source) Pain in left shoulder; Translations: [Pain in left shoulder] Onset: 09-25-2024 Episodic Residual codes; unclassified (1 source) Insomnia, unspecified; Translations: [Insomnia, unspecified] Onset: 09-18-2024 Episodic Results Test Name Value Interpretation Reference Range Facility Abdomen Single View (Portabl e)on 03-18-2025 Abdomen Single View (Portable) [facility] Imaging Services [address] [place] [address] [id number] Abdomen Single View (Portable) MR#: [id number] Acct: [id number] Name: OSCAR WOO Rep #: [id number] : 1950 F 75 From: Shawn Leonard MD PCP: Dr. Hernando Grimes MD Status: REG ER Study: Abdomen Single View (Portable) Date of Exam: 0 03/18/25 Exam# [id number] Ordering Dr: Deion Levy MD PROCEDURE: ABDOMEN SINGLE VIEW (PORTABLE) 03/18/2025 REASON FOR EXAM: NG INSERTION TECHNIQUE: Procedure Code: RADABD_P Modality: DX Procedure: ABDOMEN SINGLE VIEW (PORTABLE) COMPARISON: Abdominal CT 03/17/2025. FINDINGS: Enteric tube courses midline extending below the diaphragm into the upper midabdomen, side port/distal tip terminating in the expected location of the stomach. Visualized bowel gas pattern is nonobstructive. No free subdiaphragmatic air. Persistent IV contrast opacifying the kidneys suggesting delayed excretion with medical renal disease. Multilevel degenerative changes of the visualized spine. Cardiomegaly. RAD/Abdomen Single View (Portable) IMPRESSION: Enteric tube terminates appropriately within the stomach. Persistent IV contrast opacifying the kidneys suggesting medical renal disease with delayed excretion. Reading Location: [facility] CC: Dr. Hernando Grimes MD; Dr. Deion Levy MD Video Manager: Signed Normal [facility] Absolute lymphocyte countOrd ered By: Deionfreida Levy on 03-18-2025 Lymphocytes Auto (Unsp spec) [#/Vol] 0.73 10*3/uL Low 0.83-4.51 [facility] Absolute neutrophil countOrd ered By: Deionfreida Levy on 03-18-2025 Neutrophils (Bld) [#/Vol] 8.4 10*3/uL High 2.0-7.7 [facility] Activated partial thrombopla stin time (aPTT) in platelet poor plasma by coagulation aOrdered By: Deionfreida Levy on 03-18-2025 aPTT Coag (PPP) [Time] 27.8 s 24.1-36.2 [facility] Anion gap in Serum or Plasma Ordered By: Deionfreida Levy on 03-18-2025 Anion gap [Moles/Vol] 14 mmol/L 5-15 [facility] Automated lymphocyte count a s percentage of total leukocytesOrdered By: Deion Levy on 03-18-2025 Lymphocytes/100 WBC Auto (Unsp spec) 7.4 % Low 19-41 [facility] BUN/creatinine ratioOrdered By: Deion Levy on 03-18-2025 Urea nitrogen/Creatinine [Mass ratio] 22.8 mg/mg High 10-20 [facility] Basophil percentageOrdered B y: Deion Levy on 03-18-2025 Basophils/100 WBC (Bld) 0.4 % 0-1 [facility] Bilirubin Test strip Ql (U)O rdered By: Deion Levy on 03-18-2025 Bilirubin Ql (U) Negative Negative [facility] Bilirubin, totalOrdered By: Deion Levy on 03-18-2025 Bilirubin [Mass/Vol] 0.35 mg/dL 0.00-1.30 [facility] Blood Gases by CPSon 09-16-2 025 Base excess Calc (Bld) [Moles/Vol] 4 mmol/L High -2 to +2 [facility] Comment on above: Performed By: #### M 600.2200, M600.2000, M100.3000, M300.2000, M300.3000, M100.2000, M100.4001 #### [facility] [address] [place], [address] Blood Gas Type ART Normal [facility] Comment on above: Performed By: #### M 600.2200, M600.2000, M100.3000, M300.2000, M300.3000, M100.2000, M100.4001 #### [facility] [address] [place], [address] CO2 [Moles/Vol] 32 mmol/L Normal [facility] Comment on above: Performed By: #### M 600.2200, M600.2000, M100.3000, M300.2000, M300.3000, M100.2000, M100.4001 #### [facility] [address] [place], [address] FI02 40.0 Normal [facility] Comment on above: Performed By: #### M 600.2200, M600.2000, M100.3000, M300.2000, M300.3000, M100.2000, M100.4001 #### [facility] [address] [place], [address] HCO3 (Bld) [Moles/Vol] 30.3 mmol/L High 22-26 [facility] Comment on above: Performed By: #### M 600.2200, M600.2000, M100.3000, M300.2000, M300.3000, M100.2000, M100.4001 #### [facility] [address] [place], [address] Mode AC/VC Normal [facility] Comment on above: Performed By: #### M 600.2200, M600.2000, M100.3000, M300.2000, M300.3000, M100.2000, M100.4001 #### [facility] [address] [place], [address] O2 Delivery Dev Adult Vent Normal [facility] Comment on above: Performed By: #### M 600.2200, M600.2000, M100.3000, M300.2000, M300.3000, M100.2000, M100.4001 #### [facility] [address] [place], [address] pCO2 59.2 mmHg High 35-45 [facility] Comment on above: Performed By: #### M 600.2200, M600.2000, M100.3000, M300.2000, M300.3000, M100.2000, M100.4001 #### [facility] [address] [place] [place], [address] PEEP 5 Normal [facility] Comment on above: Performed By: #### M 600.2200, M600.2000, M100.3000, M300.2000, M300.3000, M100.2000, M100.4001 #### [facility] [address] [place], [address] pH (Bld) 7.32 [pH] Low 7.35-7.45 [facility] Comment on above: Performed By: #### M 600.2200, M600.2000, M100.3000, M300.2000, M300.3000, M100.2000, M100.4001 #### [facility] [address] [place], [address] PO2 101 mmHG High 75-100 [facility] Comment on above: Performed By: #### M 600.2200, M600.2000, M100.3000, M300.2000, M300.3000, M100.2000, M100.4001 #### [facility] [address] [place], [address] RR 14 Normal [facility] Comment on above: Performed By: #### M 600.2200, M600.2000, M100.3000, M300.2000, M300.3000, M100.2000, M100.4001 #### [facility] [address] [place], [address] SITE L Brach Normal [facility] Comment on above: Performed By: #### M 600.2200, M600.2000, M100.3000, M300.2000, M300.3000, M100.2000, M100.4001 #### [facility] [address] [place], [address] SO2 97 Normal 95-99 [facility] Comment on above: Performed By: #### M 600.2200, M600.2000, M100.3000, M300.2000, M300.3000, M100.2000, M100.4001 #### [facility] [address] [place], [address] Vt 400.0 mL Normal [facility] Comment on above: Performed By: #### M 600.2200, M600.2000, M100.3000, M300.2000, M300.3000, M100.2000, M100.4001 #### [facility] [address] [place], [address] Blood base excess determinat ionOrdered By: Emili Lee on 03-18-2025 Base excess Calc (BldV) [Moles/Vol] 4 mmol/L High -2-2 [facility] Blood bicarbonate measuremen tOrdered By: Emili Lee on 03-18-2025 HCO3 (Bld) [Moles/Vol] 30.3 mmol/L High 22-26 [facility] Brain/Head without Contrasto n 03-18-2025 Brain/Head without Contrast [facility] Imaging Services [address] [place] [address] Brain/Head without Contrast MR#: [id number] Acct: [id number] Name: OSCAR WOO Rep #: [id number] : 1950 F 75 From: Jayesh Chi PCP: Dr. Hernando Grimes MD Status: REG ER Study: Brain/Head without Contrast Date of Exam: 03/03 12/25 Exam# [id number] Ordering Dr: Deion Levy MD PROCEDURE: BRAIN/HEAD WITHOUT CONTRAST 03/18/2025 REASON FOR EXAM: ALTERED MENTAL STATUS STATUS POST HEAD TRAUMA TECHNIQUE: Procedure Code: CTBR Modality: CT Procedure: BRAIN/HEAD WITHOUT CONTRAST Coronal and Sagittal reconstruction series were provided. One or more dose reduction techniques were used (e.g., Automated exposure control, adjustment of the mA and/or kV according to patient size, use of iterative reconstruction technique. RADIATION DOSE SUMMARY: DLP: 796 mGycm COMPARISON: None FINDINGS: There is no acute infarct, intracranial hemorrhage, or mass effect. There is no hydrocephalus or significant midline shift. There is mild chronic microvascular ischemic changes and mild parenchymal volume loss. No acute, depressed calvarial fractures. No large scalp hematomas. The paranasal sinuses are clear. Bilateral lens surgery. CT/Brain/Head without Contrast IMPRESSION: No acute intracranial process. Reading Location: [facility] CC: Dr. Hernando Grimes MD; Dr. Deion Levy MD Video Manager: Signed Normal [facility] CBC W/Diff, Automatedon 03-03 Absolute Lymph 0.73 X10 3/uL Low 0.83-4.51 [facility] Comment on above: Performed By: #### M 600.2200, M600.2000, M100.3000, M300.2000, M300.3000, M100.2000, M100.4001 #### [facility] [address] [place], [place], [id number] Absolute Neut 8.4 X10 3/uL High 2.0-7.7 [facility] Comment on above: Performed By: #### M 600.2200, M600.2000, M100.3000, M300.2000, M300.3000, M100.2000, M100.4001 #### [facility] [address] [place], [address] Basophils/100 WBC (Bld) 0.4 % Normal 0-1 [facility] Comment on above: Performed By: #### M 600.2200, M600.2000, M100.3000, M300.2000, M300.3000, M100.2000, M100.4001 #### [facility] [address] [place], [address] Eosinophils/100 WBC (Bld) 0.0 % Normal 0-5 [facility] Comment on above: Performed By: #### M 600.2200, M600.2000, M100.3000, M300.2000, M300.3000, M100.2000, M100.4001 #### [facility] [address] [place], [address] Erythrocyte distribution width (RBC) [Ratio] 14.6 % Normal 11.6-14.6 [facility] Comment on above: Performed By: #### M 600.2200, M600.2000, M100.3000, M300.2000, M300.3000, M100.2000, M100.4001 #### [facility] [address] [place], [address] Hematocrit (Bld) [Volume fraction] 50.5 % High 37-47 [facility] Comment on above: Performed By: #### M 600.2200, M600.2000, M100.3000, M300.2000, M300.3000, M100.2000, M100.4001 #### [facility] [address] [place], [address] Hemoglobin (Bld) [Mass/Vol] 15.8 g/dL High 12.0-15.0 [facility] Comment on above: Performed By: #### M 600.2200, M600.2000, M100.3000, M300.2000, M300.3000, M100.2000, M100.4001 #### [facility] [address] [place], [address] IG% 0.900 Normal 0.0-0.9 [facility] Comment on above: Result Comment: IG% - Immature Granulocytes (promyelocytes, myelocytes and metamyelocytes) > 1% indicates that a LEFT SHIFT is Present. Performed By: #### M 600.2200, M600.2000, M100.3000, M300.2000, M300.3000, M100.2000, M100.4001 #### [facility] [address] [place], [address] Lymphocytes/100 WBC (Bld) 7.4 % Low 19-41 [facility] Comment on above: Performed By: #### M 600.2200, M600.2000, M100.3000, M300.2000, M300.3000, M100.2000, M100.4001 #### [facility] [address] [place], [address] MCH (RBC) [Entitic mass] 29.3 pg Normal 27.0-32.0 [facility] Comment on above: Performed By: #### M 600.2200, M600.2000, M100.3000, M300.2000, M300.3000, M100.2000, M100.4001 #### [facility] [address] [place], [address] MCHC (RBC) [Mass/Vol] 31.3 g/dL Low 32-36 [facility] Comment on above: Performed By: #### M 600.2200, M600.2000, M100.3000, M300.2000, M300.3000, M100.2000, M100.4001 #### [facility] [address] [place], [address] MCV (RBC) [Entitic vol] 93.5 fL Normal 81-99 [facility] Comment on above: Performed By: #### M 600.2200, M600.2000, M100.3000, M300.2000, M300.3000, M100.2000, M100.4001 #### [facility] [address] [place], [address] Monocytes/100 WBC (Bld) 7.0 % Normal 0-10 [facility] Comment on above: Performed By: #### M 600.2200, M600.2000, M100.3000, M300.2000, M300.3000, M100.2000, M100.4001 #### [facility] [address] [place], [address] Neutrophils/100 WBC (Bld) 84.3 % High 47-70 [facility] Comment on above: Performed By: #### M 600.2200, M600.2000, M100.3000, M300.2000, M300.3000, M100.2000, M100.4001 #### [facility] [address] [place], [address] Nucleated RBC (Bld) [#/Vol] 0 10*3/uL Normal 0-5 [facility] Comment on above: Performed By: #### M 600.2200, M600.2000, M100.3000, M300.2000, M300.3000, M100.2000, M100.4001 #### [facility] [address] [place], [address] Platelet mean volume (Bld) [Entitic vol] 10.4 fL Normal 6.2-12.0 [facility] Comment on above: Performed By: #### M 600.2200, M600.2000, M100.3000, M300.2000, M300.3000, M100.2000, M100.4001 #### [facility] [address] [place], [address] Platelets (Bld) [#/Vol] 218 10*3/uL Normal 150-450 [facility] Comment on above: Performed By: #### M 600.2200, M600.2000, M100.3000, M300.2000, M300.3000, M100.2000, M100.4001 #### [facility] [address] [place], [address] RBC (Bld) [#/Vol] 5.40 10*6/uL Normal 4.2-5.4 [facility] Comment on above: Performed By: #### M 600.2200, M600.2000, M100.3000, M300.2000, M300.3000, M100.2000, M100.4001 #### [facility] [address] [place], [address] RDW SD 49.9 fl High 35.1-43.9 [facility] Comment on above: Performed By: #### M 600.2200, M600.2000, M100.3000, M300.2000, M300.3000, M100.2000, M100.4001 #### [facility] [address] [place], [address] WBC (Bld) [#/Vol] 9.9 10*3/uL Normal 4.4-11.0 [facility] Comment on above: Performed By: #### M 600.2200, M600.2000, M100.3000, M300.2000, M300.3000, M100.2000, M100.4001 #### [facility] [address] [place], [address] CRPon 03-18-2025 C-REACTIVE PROT 5.32 mg/L High 0.0-3.0 [facility] Comment on above: Performed By: #### M 600.2200, M600.2000, M100.3000, M300.2000, M300.3000, M100.2000, M100.4001 #### [facility] [address] [place], [address] CTA Abd/Pelvis W/WO Contrast on 03-18-2025 CTA Abd/Pelvis W/WO Contrast [facility] Imaging Services [address] [place] [address] CTA Abd/Pelvis W/WO Contrast MR#: [id number] Acct: [id number] Name: OSCAR WOO Rep #: [id number] : 1950 F 75 From: Shawn Leonard MD PCP: Dr. Hernando Grimes MD Status: ADM IN Study: CTA Abd/Pelvis W/WO Contrast Date of Exam: Exam# [id number] Ordering Dr: Deion Levy MD PROCEDURE: CTA ABD/PELVIS W/WO CONTRAST 03/18/2025 REASON FOR EXAM: RULE OUT RUPTURE AAA TECHNIQUE: Procedure Code: [id number] Modality: CT Procedure: CTA ABD/PELVIS W/WO CONTRAST Multiplanar Sagittal and Coronal images were obtained. 3D / MIP post processing was performed. CONTRAST: Isovue 370 VOLUME: 92 mL One or more dose reduction techniques were used (e.g., Automated exposure control, adjustment of the mA and/or kV according to patient size, use of iterative reconstruction technique). RADIATION DOSE SUMMARY: DLP: 1390.31 mGycm COMPARISON: Abdominal CTA 03/17/2025. FINDINGS: AORTA: Diffuse tortuosity of the abdominal aorta, with moderate atherosclerotic disease. Stable infrarenal saccular aneurysm just above the iliac bifurcation, measuring up to 4.4 x 4 cm. Major branch vessels are patent, normal in course and caliber. No dissection. HEPATOBILIARY: Hepatic steatosis. Otherwise within normal limits. GENITOURINARY: Redemonstrated indeterminate right adrenal gland nodule measuring up to 15 mm. Few bilateral simple appearing small renal cysts. No hydronephrosis. Urinary bladder decompressed around a Day catheter. Unremarkable appearance of the uterus and adnexae. GI TRACT: Enteric tube terminates within the stomach. No evidence of bowel obstruction or active inflammatory process. Appendix is surgically absent. Mild distal colonic diverticulosis without evidence for active diverticulitis/colit is. PERITONEUM/RETROPERI TONEUM: No ascites or free air. No lymphadenopathy. MUSCULOSKELETAL: Bilateral hip arthroplasties. Multilevel degenerative changes of the spine. Postoperative changes of multilevel dorsal decompressive laminectomies from L2-L4. CT/CTA Abd/Pelvis W/WO Contrast IMPRESSION: 1. No acute or active inflammatory intra-abdominal pathology. 2. Stable saccular infrarenal abdominal aortic aneurysm measuring up to 4.4 cm. 3. Indeterminate 15 mm right adrenal gland nodule, probably adenoma. Suggest follow-up dedicated adrenal CT or MRI in 12 months to assess stability. Reading Location: [facility] CC: Dr. Hernando Grimes MD; Dr. Deion Levy MD Video Manager: Signed Normal [facility] Carbon dioxide, total [Moles /volume] in Central venous bloodOrdered By: Deion Levy on 03-18-2025 CO2 [Moles/Vol] 32.8 mmol/L High 21.0-32.0 [facility] Chest 1 View (Portable)on Chest 1 View (Portable) [facility] Imaging Services [address] [place] [address] Chest 1 View (Portable) MR#: [id number] Acct: [id number] Name: OSCAR WOO Rep #: [id number] : 1950 F 75 From: Shawn Leonard MD PCP: Dr. Hernando Grimes MD Status: ADM IN Study: Chest 1 View (Portable) Date of Exam: 03/18/25 Exam# [id number] Ordering Dr: Deion Levy MD PROCEDURE: CHEST 1 VIEW (PORTABLE) 03/18/2025 REASON FOR EXAM: LINE PLACEMENT TECHNIQUE: Frontal view of the chest. COMPARISON: Earlier same day 03/18/2025. FINDINGS: Endotracheal tube in stable positioning, tip roughly 2.7 cm above the abigail. Enteric tube appears in stable positioning, distal tip collimated from view. Newly placed right subclavian approach central venous catheter, tip at the lower SVC. Stable cardiomegaly. Unchanged lung aeration. No acute osseous abnormality. RAD/Chest 1 View (Portable) IMPRESSION: 1. New right subclavian approach central venous catheter, tip at the lower SVC. 2. Stable positioning of the endotracheal and enteric tubes. 3. Unchanged lung aeration. Stable cardiomegaly. Reading Location: [facility] CC: Dr. Hernando Grimes MD; Dr. Deion Levy MD Video Manager: Signed Normal [facility] Chest 1 View (Portable) [facility] Imaging Services [address] [place] [address] Chest 1 View (Portable) MR#: [id number] Acct: [id number] Name: OSCAR WOO Rep #: [id number] : 1950 F 75 From: Shawn Leonard MD PCP: Dr. Hernando Grimes MD Status: [facility] ER Study: Chest 1 View (Portable) Date of Exam: 03/18/25 Exam# [id number] Ordering Dr: Deion Levy MD PROCEDURE: CHEST 1 VIEW (PORTABLE) 03/18/2025 REASON FOR EXAM: INTUBATION TECHNIQUE: Frontal view of the chest. COMPARISON: Earlier same day 03/18/2025 FINDINGS: Endotracheal tube in place terminating 3.1 cm above the abigail. Enteric tube courses midline extending below the diaphragm into the upper midabdomen. Cardiomegaly. Increased vascular and interstitial markings, possible interstitial edema. No pneumothorax or sizable pleural effusion. Mild left basilar linear/discoid atelectasis. Multilevel degenerative changes of the spine. Partially imaged bilateral shoulder arthroplasty hardware. RAD/Chest 1 View (Portable) IMPRESSION: 1. Endotracheal tube tip 3.1 cm above the abigail. 2. Enteric tube appropriately positioned terminating in the upper midabdomen. 3. Cardiomegaly, with increased vascular markings and possible interstitial edema. Reading Location: [id number] CC: Dr. Hernando Grimes MD; Dr. Deion Levy MD Video Manager: Signed Normal [facility] Chest PA and Lateralon 03-18 Chest PA and Lateral [facility] Imaging Services [address] [place] [address] Chest PA and Lateral MR#: [id number] Acct: [id number] Name: OSCAR WOO Rep #: [id number] : 1950 F 75 From: Santana Mares MD PCP: Dr. Hernando Grimes MD Status: REG ER Study: Chest PA and Lateral Date of Exam: 03/18/25 Exam# [id number] Ordering Dr: Deion Levy MD PROCEDURE: CHEST PA AND LATERAL 03/18/2025 REASON FOR EXAM: TACHYPNEA TECHNIQUE: Procedure Code: RADCXR Modality: DX Procedure: CHEST PA AND LATERAL FINDINGS: Hardware: Multiple monitoring leads overlying chest wall. Heart: Heart size is mildly enlarged. Mediastinum: The mediastinal contour is stable. Lungs: Bilateral low lung volumes. Bones: Degenerative changes of visualized spine.Status post bilateral reverse shoulder arthroplasty with surgical hardware demonstrating gross anatomic alignment RAD/Chest PA and Lateral IMPRESSION: Bilateral low lung volumes. No acute cardiopulmonary abnormality. Reading Location: [id number] CC: Dr. Hernando Grimes MD; Dr. Deion Levy MD Video Manager: Signed Normal [facility] Chloride assayOrdered By: Mai Levy on 03-18-2025 Chloride [Moles/Vol] 84 mmol/L Low 98-108 [facility] Comprehensive Metabolic Prof ilon 03-18-2025 Albumin [Mass/Vol] 4.1 g/dL Normal 3.4-4.8 [facility] Comment on above: Performed By: #### M 600.2200, M600.2000, M100.3000, M300.2000, M300.3000, M100.2000, M100.4001 #### [facility] [address] [place], [address] Albumin/Globulin [Mass ratio] 1.1 {ratio} Normal 0.9-2.4 [facility] Comment on above: Performed By: #### M 600.2200, M600.2000, M100.3000, M300.2000, M300.3000, M100.2000, M100.4001 #### [facility] [address] [place], [address] ALK PHOS 162 U/L High 35-104 [facility] Comment on above: Performed By: #### M 600.2200, M600.2000, M100.3000, M300.2000, M300.3000, M100.2000, M100.4001 #### [facility] [address] [place], [address] ALT [Catalytic activity/Vol] 61 U/L High <=34 [facility] Comment on above: Performed By: #### M 600.2200, M600.2000, M100.3000, M300.2000, M300.3000, M100.2000, M100.4001 #### [facility] [address] [place], [address] AST [Catalytic activity/Vol] 86 U/L High <=31 [facility] Comment on above: Performed By: #### M 600.2200, M600.2000, M100.3000, M300.2000, M300.3000, M100.2000, M100.4001 #### [facility] [address] [place], [address] Bilirubin [Mass/Vol] 0.35 mg/dL Normal 0.00-1.30 [facility] Comment on above: Performed By: #### M 600.2200, M600.2000, M100.3000, M300.2000, M300.3000, M100.2000, M100.4001 #### [facility] [address] [place], [address] BUN/CRE 22.8 RATIO High 10-20 [facility] Comment on above: Performed By: #### M 600.2200, M600.2000, M100.3000, M300.2000, M300.3000, M100.2000, M100.4001 #### [facility] [address] [place], [address] Calcium [Mass/Vol] 9.7 mg/dL Normal 7.6-11.0 [facility] Comment on above: Performed By: #### M 600.2200, M600.2000, M100.3000, M300.2000, M300.3000, M100.2000, M100.4001 #### [facility] [address] [place], [address] Chloride [Moles/Vol] 84 mmol/L Low 98-108 [facility] Comment on above: Performed By: #### M 600.2200, M600.2000, M100.3000, M300.2000, M300.3000, M100.2000, M100.4001 #### [facility] [address] [place], [address] CO2 [Moles/Vol] 32.8 mmol/L High 21.0-32.0 [facility] Comment on above: Performed By: #### M 600.2200, M600.2000, M100.3000, M300.2000, M300.3000, M100.2000, M100.4001 #### [facility] [address] [place], [address] Creatinine [Mass/Vol] 2.22 mg/dL High 0.70-1.20 [facility] Comment on above: Performed By: #### M 600.2200, M600.2000, M100.3000, M300.2000, M300.3000, M100.2000, M100.4001 #### [facility] [address] [place], [address] ECRCL 27.85 ml/min Low 50-250 [facility] Comment on above: Performed By: #### M 600.2200, M600.2000, M100.3000, M300.2000, M300.3000, M100.2000, M100.4001 #### [facility] [address] [place], [address] GAP 14 Normal 5-15 [facility] Comment on above: Performed By: #### M 600.2200, M600.2000, M100.3000, M300.2000, M300.3000, M100.2000, M100.4001 #### [facility] [address] [place], [address] GFR/1.73 sq M.predicted among non-blacks MDRD (S/P/Bld) [Vol rate/Area] 22 mL/min/{1.73_m2} Low >60 [facility] Comment on above: Result Comment: mL/m in/1.73m2 CKD-EPI Creatinine Equation (2020) Performed By: #### M 600.2200, M600.2000, M100.3000, M300.2000, M300.3000, M100.2000, M100.4001 #### [facility] [address] [place], [address] Globulin (S) [Mass/Vol] 3.6 g/dL Normal 2.2-4.2 [facility] Comment on above: Performed By: #### M 600.2200, M600.2000, M100.3000, M300.2000, M300.3000, M100.2000, M100.4001 #### [facility] [address] [place], [address] Glucose [Mass/Vol] 115 mg/dL High 70-99 [facility] Comment on above: Performed By: #### M 600.2200, M600.2000, M100.3000, M300.2000, M300.3000, M100.2000, M100.4001 #### [facility] [address] [place], [address] Potassium [Moles/Vol] 4.4 mmol/L Normal 3.3-5.1 [facility] Comment on above: Performed By: #### M 600.2200, M600.2000, M100.3000, M300.2000, M300.3000, M100.2000, M100.4001 #### [facility] [address] [place], [address] Sodium [Moles/Vol] 131 mmol/L Low 133-145 [facility] Comment on above: Performed By: #### M 600.2200, M600.2000, M100.3000, M300.2000, M300.3000, M100.2000, M100.4001 #### [facility] [address] [place], [address] T PROT 7.7 g/dL Normal 5.9-8.4 [facility] Comment on above: Performed By: #### M 600.2200, M600.2000, M100.3000, M300.2000, M300.3000, M100.2000, M100.4001 #### [facility] [address] [place], [address] Urea nitrogen [Mass/Vol] 51 mg/dL High 4-19 [facility] Comment on above: Performed By: #### M 600.2200, M600.2000, M100.3000, M300.2000, M300.3000, M100.2000, M100.4001 #### [facility] [address] [place], [address] Eosinophil percentageOrdered By: Deion Levy on 03-18-2025 Eosinophils/100 WBC (Bld) 0.0 % 0-5 [facility] Erythrocyte distribution wid th ratioOrdered By: Deion Levy on 03-18-2025 Erythrocyte distribution width (RBC) [Ratio] 14.6 % 11.6-14.6 [facility] Erythrocyte distribution wid th standard deviationOrdered By: Deion Levy on 03-18-2025 Erythrocyte distribution width (RBC) [Ratio] 49.9 fl High 35.1-43.9 [facility] Glomerular filtration rate ( GFR) estimation/1.73 sq m using serum, plasma, or whole bOrdered By: Deion Levy on 03-18-2025 GFR/1.73 sq M.predicted among non-blacks MDRD (S/P/Bld) [Vol rate/Area] 22 mL/min/{1.73_m2} Low >60 [facility] Comment on above: mL/min/1.73m2 CKD-EP I Creatinine Equation (2020) H AND P Exam - [place] 03-18-2025 H&P Exam - Hospitalist [facility] Medical Records Department [address] [place] [address] H P Exam - Hospitalist 03/18/251937 MR#: [id number] Acct: [id number] Name: OSCAR WOO Rep #: [id number] : 1950 75 From: Emili Lee MD PCP: Dr. Henrando Grimes MD Status:ADM IN Location: ICU ICU02-1 HPI - General General Date of Admission: 03/18/25 Date of Service: 03/18/25 Chief Complaint: Altered mental status HPI Narrative OSCAR WOO, is a 75-year-old female with a history of restless leg syndrome, hypertension, depression, hypertension presented [facility] ED 03/18/2025 due to altered mental status. Patient's last known well was 1600 on Monday, March 17. In ED patient had some slow speech and was noted to have bruise over the left lateral periorbital region after a fall out of bed. In ED temp 96.4, heart rate of 68 with a blood pressure 79/63, respiratory rate 16 and pulse ox 79% on room air. CBC with white count of 9.9, hemoglobin 15.8. CMP with a sodium of 131, BUN of 51 and a creatinine of 2.22 up from 1.03 a week ago with AST of 86, ALT 61 and alk phos 162. Lactic acid of 1.1, TSH within normal limits, chest x-ray with bilateral low lung volumes. CT head no acute process. UA only positive for 1+ bacteria and urine. Patient given IV fluids initially with improvement in blood pressure however became hypotensive again and patient also became somnolent and she had a CO2 capnography that showed a CO2 of 80, patient intubated in the ED with a postintubation ABG revealing a pCO2 of 59.2 and a pH of 7.32 with a bicarb of 30. Afterwards pressure 54/42 so patient had central line placed in the ED. 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 Patient sent down for a CTA given her hypotension without other identifiable source to assess if this may have ruptured. CTA pending formal read however does not appear patient has acute rupture. Hospitalist contacted for admission. Patient evaluated at bedside after CTA. Family members present at bedside including cousin, sister, granddaughter who is POA. Family reports she has had shortness of breath recently and a dry cough which is why she had the CTA, they were currently working her up and she was supposed see Dr. Reddy with cardiology but has not had that appointment yet. Cousin at bedside reported the only other to think she complained of for being afraid to fall asleep but she felt like she stopped breathing when she sleeps and some nausea over the past couple days but she had not commented on any diarrhea or abdominal pain and had not been having any vomiting. [facility] Medical History Infection and inflammatory reaction due to other internal joint prosthesis, initial encounter Insomnia MRSA (methicillin resistant staph aureus) culture positive Wears glasses Post-menopausal Depression Anxiety Walker as ambulation aid Ambulates with cane Arthritis High cholesterol Back pain Restless legs Former smoker Shortness of breath on exertion History of pain when walking History of edema Hypertension Home Medications ???Medication ???Instructions ???Recorded ???Last Taken ???Type losartan 50 mg tablet 50 mg PO BID BP 09/19/14 09/13/24 History melatonin 5 mg tablet 10 mg PO QHS INSOMNIA 09/19/14 Unk nown History bupropion HCl 300 mg 24 hr tablet, 150 mg PO DAILY DEPRESSION 06/1109/13/24 History extended release gabapentin 600 mg tablet 600 mg PO QHS SLEEP 06/11/20 Unkno wn History mirtazapine 15 mg tablet 15 mg PO QHS INSOMNIA 06/24/20 20:00 History duloxetine 30 mg capsule,delayed 30 mg PO DAILY DEPRESSION 09/11/24 09/13/24 History release (Cymbalta) pramipexole 0.5 mg tablet 0.5 mg PO DINNER RLS 09/11/24 Unkn own History aspirin 81 mg chewable tablet 81 mg PO BID blood thinner #0 tabs 09/17/24 Unknown Rx loperamide 2 mg capsule 2 mg PO Q2H PRN PRN DIARRHEA #0 Unknown Rx caps albuterol sulfate 90 mcg/actuation 2 inh inhalation Q4H PRN shortne ss 03/18/25 Unknown History aerosol inhaler of breath or wheezing carvedilol 3.125 mg tablet 3.125 mg PO BID 03/18/25 Unknown H istory doxycycline hyclate 100 mg capsule 100 mg PO BID abx 03/18/25 Unkno wn History indapamide 2.5 mg tablet 2.5 mg PO DAILY diuretic 03/18/25 Unknown History naproxen sodium 220 mg tablet 440 mg PO DAILY PRN pain 03/18/25 Unknown History potassium citrate 10 mEq (1,080 10 meq PO DAILY 03/18/25 Unknown H istory mg) tablet,extended release pramipexole 1 mg tablet 1 mg PO QHS restless leg 03/18/25 Unknown History spironolactone 50 mg tablet 50 mg PO DAILY 03/18/25 Unknown Hi story (more content not included)... Normal [facility] Hematocrit Auto (Bld) [Volum e fraction]Ordered By: Deion Levy on 03-18-2025 Hematocrit (Bld) [Volume fraction] 50.5 % High 37-47 [facility] Hemoglobin measurementOrdere d By: Deion Levy on 03-18-2025 Hemoglobin (Bld) [Mass/Vol] 15.8 g/dL High 12.0-15.0 [facility] Immature granulocytes/100 WB C Auto (Bld)Ordered By: Deion Levy on 03-18-2025 Immature granulocytes/100 WBC (Bld) 0.900 % 0.0-0.9 [facility] Comment on above: IG% - Immature Granu locytes (promyelocytes, myelocytes and metamyelocytes) > 1% indicates that a LEFT SHIFT is Present. International normalized rat io (INR) calculationOrdered By: Deion Levy on 03-18-2025 INR Coag (Bld) [Relative time] 0.9 {INR} [facility] Ketones Test strip Ql (U)Ord ered By: Deion Levy on 03-18-2025 Ketones Ql (U) Negative Negative [facility] [id number] 03-18-2025 Procalcitonin 0.10 ng/mL Normal <=0.10 [facility] Comment on above: Result Comment: Inte rpretation: <0.10-0.25 ng/mL: Antibiotic therapy discouraged. Bacterial infection unlikely. 0.25-0.50 ng/mL: Antibiotic therapy encouraged. Bacterial infection possible. >0.50 ng/mL: Antibiotic therapy strongly encouraged. Suggestive of presence of bacterial infection. PCT should always be interpreted in the clinical context of the patient. Therefore, clinicians should use the PCT results in conjunction with other laboratory findings and clinical signs of the patient. Performed By: #### M 600.2200, M600.2000, M100.3000, M300.2000, M300.3000, M100.2000, M100.4001 #### [facility] [address] [place], [address] Laboratory - Chemistry and C hemistry - challengeOrdered By: Deion Levy on 03-18-2025 AST [Catalytic activity/Vol] 86 U/L High <32 [facility] Lactic Acidon 03-18-2025 Lactate [Moles/Vol] 1.1 mmol/L Normal 0.0-2.0 [facility] Comment on above: Order Comment: Y Performed By: #### M 600.2200, M600.2000, M100.3000, M300.2000, M300.3000, M100.2000, M100.4001 #### [facility] [address] [place], [place], [id number] Lactic acid measurementOrder ed By: Deionfreida Levy on 03-18-2025 Lactate [Moles/Vol] 1.1 mmol/L 0.0-2.0 [facility] MCV (mean corpuscular volume ) determinationOrdered By: Deion Levy on 03-18-2025 MCV (RBC) [Entitic vol] 93.5 fL 81-99 [facility] Mean corpuscular hemoglobin (MCH) determinationOrdered By: Deion Levy on 03-18-2025 MCH (RBC) [Entitic mass] 29.3 pg 27.0-32.0 [facility] Mean corpuscular hemoglobin concentration (MCHC) determinationOrdered By: Deion Levy on 03-18-2025 MCHC (RBC) [Mass/Vol] 31.3 g/dL Low 32-36 [facility] Mean platelet volume determi nationOrdered By: Deion Levy on 03-18-2025 Platelet mean volume (Bld) [Entitic vol] 10.4 fL 6.2-12.0 [facility] Measurement, pHOrdered By: Wenceslao Lee on 03-18-2025 pH (Unsp spec) 7.32 [pH] Low 7.35-7.45 [facility] Microscopic analysis of urin e for red blood cells (RBC)Ordered By: Deion Levy on 03-18-2025 Microscopic analysis of urine for red blood cells (RBC) 0-5 SEEN /hpf 0-5 [facility] Monocyte percentageOrdered B y: Deion Levy on 03-18-2025 Monocytes/100 WBC (Bld) 7.0 % 0-10 [facility] Mucus LM Ql (Urine sed)Order ed By: Deion Levy on 03-18-2025 Mucus Ql (Urine sed) 0 SEEN /hpf [facility] Neutrophil percentageOrdered By: Deion Levy on 03-18-2025 Neutrophils/100 WBC (Bld) 84.3 % High 47-70 [facility] Nitrite Test strip Ql (U)Ord ered By: Deionfreida Levy on 03-18-2025 Nitrite Ql (U) Negative Negative [facility] No Panel InformationOrdered By: Emili Lee on 03-18-2025 Bedside Blood Gas PEEP 5 [facility] Blood Gas Respiration Rate 14 [facility] Blood Gas Sample Site L Brach [facility] Blood Gas Specimen Type ART [facility] Blood Gas Tidal Volume 400.0 mL [facility] Blood Gas Vent Mode AC/VC [facility] Oxygen Delivery Device Adult Vent [facility] Nucleated red blood cell per centageOrdered By: Deion Levy on 03-18-2025 Nucleated RBC/100 WBC (Bld) [Ratio] 0 % 0-5 [facility] Partial Thromboplast Timeon 03-18-2025 aPTT Coag (Bld) [Time] 27.8 s Normal 24.1-36.2 [facility] Comment on above: Performed By: #### M 600.2200, M600.2000, M100.3000, M300.2000, M300.3000, M100.2000, M100.4001 #### [facility] [address] [place], [address] Platelet countOrdered By: Mai Levy on 03-18-2025 Platelets (Bld) [#/Vol] 218 10*3/uL 150-450 [facility] Potassium measurement (mass/ volume)Ordered By: Deion Levy on 03-18-2025 Potassium (Unsp spec) [Mass/Vol] 4.4 mmol/L 3.3-5.1 [facility] Procalcitonin [Mass/volume] in Serum or Plasma by ImmunoassayOrdered By: Emili Lee on 03-18-2025 Procalcitonin IA [Mass/Vol] 0.10 ng/mL <0.11 [facility] Comment on above: Interpretation:<0.10 -0.25 ng/mL: Antibiotic therapy discouraged. Bacterial infection unlikely.0.25-0.50 ng/mL: Antibiotic therapy encouraged. Bacterial infection possible.>0.50 ng/mL: Antibiotic therapy strongly encouraged. Suggestive of presence of bacterial infection.PCT should always be interpreted in the clinical context of the patient. Therefore, clinicians should use the PCT results in conjunction with other laboratory findings and clinical signs of the patient. Protein Test strip Ql (U)Ord ered By: Deion Levy on 03-18-2025 Protein Ql (U) 30 mg/dl High Negative [facility] Prothrombin Time w/INRon INR Coag (PPP) [Relative time] 0.9 {INR} Normal [facility] Comment on above: Performed By: #### M 600.2200, M600.2000, M100.3000, M300.2000, M300.3000, M100.2000, M100.4001 #### [facility] [address] [place], [place], [id number] PT Coag (PPP) [Time] 12.4 s Normal 11.7-14.9 [facility] Comment on above: Performed By: #### M 600.2200, M600.2000, M100.3000, M300.2000, M300.3000, M100.2000, M100.4001 #### [facility] [address] [place], [place], [address] Prothrombin timeOrdered By: Deion Levy on 03-18-2025 PT Coag (PPP) [Time] 12.4 s 11.7-14.9 [facility] RBC Auto (Bld) [#/Vol]Ordere d By: Deion Levy on 03-18-2025 RBC (Bld) [#/Vol] 5.40 10*6/uL 4.2-5.4 [facility] Serum creatinine measurement (mass/volume)Ordered By: Deion Levy on 03-18-2025 Creatinine [Mass/Vol] 2.22 mg/dL High 0.70-1.20 [facility] Serum globulin measurementOr dered By: Deion Levy on 03-18-2025 Globulin (S) [Mass/Vol] 3.6 g/dL 2.2-4.2 [facility] Serum glucose measurement (m ass/volume)Ordered By: Deion Levy on 03-18-2025 Glucose [Mass/Vol] 115 mg/dL High 70-99 [facility] Serum or plasma C reactive p rotein measurement (mass/volume)Ordered By: Emili Lee on 03-18-2025 CRP [Mass/Vol] 5.32 mg/L High 0.0-3.0 [facility] Serum or plasma alanine gao otransferase (ALT) measurementOrdered By: Deion Levy on 03-18-2025 ALT [Catalytic activity/Vol] 61 U/L High <35 [facility] Serum or plasma albumin lisa urement (mass/volume)Ordered By: Deion Levy on 03-18-2025 Albumin [Mass/Vol] 4.1 g/dL 3.4-4.8 [facility] Serum or plasma albumin/glob ulin mass ratioOrdered By: Deion Levy on 03-18-2025 Albumin/Globulin [Mass ratio] 1.1 {ratio} 0.9-2.4 [facility] Serum or plasma alkaline bee sphatase measurementOrdered By: Deionfreida Levy on 03-18-2025 ALP [Catalytic activity/Vol] 162 U/L High 35-104 [facility] Serum or plasma calcium lisa urement (mass/volume)Ordered By: Deionfreida Levy on 03-18-2025 Calcium [Mass/Vol] 9.7 mg/dL 7.6-11.0 [facility] Serum or plasma urea nitroge n measurement (mass/volume)Ordered By: Deion Levy on 03-18-2025 Urea nitrogen [Mass/Vol] 51 mg/dL High 4-19 [facility] Sodium levelOrdered By: Deionfreida Levy on 03-18-2025 Sodium [Moles/Vol] 131 mmol/L Low 133-145 [facility] Squamous epithelial cells de tection in urine sediment by light microscopyOrdered By: Deion Levy on 03-18-2025 Epithelial cells.squamous LM Ql (Urine sed) 0-5 SEEN /hpf 5-10 [facility] TSH DL <= 0.005 mIU/L QnOrde red By: Deion Levy on 03-18-2025 TSH Qn 1.650 uIU/mL 0.300-4.200 [facility] Thyroid Stim Hormone (TSH)on 03-18-2025 TSH 1.650 uIU/mL Normal 0.300-4.200 [facility] Comment on above: Performed By: #### M 600.2200, M600.2000, M100.3000, M300.2000, M300.3000, M100.2000, M100.4001 #### [facility] [address] [place], [address] Total carbon dioxide measure mentOrdered By: Emili Lee on 03-18-2025 CO2 [Moles/Vol] 32 mmol/L [facility] Total proteinOrdered By: Deion Levy on 03-18-2025 Protein [Mass/Vol] 7.7 g/dL 5.9-8.4 [facility] Transitional cells detection in urine sediment by light microscopyOrdered By: Deion Levy on 03-18-2025 Transitional cells LM Ql (Urine sed) 0-5 SEEN /hpf 0-5 [facility] Urinalysis, Completeon 03-18 BACTERIA 1+ /hpf Normal None Seen [facility] Comment on above: Order Comment: SOLITARIO TER SPECIMEN Performed By: #### M 600.2200, M600.2000, M100.3000, M300.2000, M300.3000, M100.2000, M100.4001 #### [facility] [address] [place], [place], [id number] EPI,TRANSITION 0-5 SEEN Normal 0-5 [facility] Comment on above: Order Comment: SOLITARIO TER SPECIMEN Performed By: #### M 600.2200, M600.2000, M100.3000, M300.2000, M300.3000, M100.2000, M100.4001 #### [facility] [address] [place], [place], [id number] [phone] WBC 0-5 SEEN Normal 0-5 [facility] Comment on above: Order Comment: SOLITARIO TER SPECIMEN Performed By: #### M 600.2200, M600.2000, M100.3000, M300.2000, M300.3000, M100.2000, M100.4001 #### [facility] [address] [place], [place], [id number] [phone] EPI,SQUAMOUS 0-5 SEEN Normal 5-10 [facility] Comment on above: Order Comment: SOLITARIO TER SPECIMEN Performed By: #### M 600.2200, M600.2000, M100.3000, M300.2000, M300.3000, M100.2000, M100.4001 #### [facility] [address] [place], [address] RBC 0-5 SEEN Normal 0-5 [facility] Comment on above: Order Comment: SOLITARIO TER SPECIMEN Performed By: #### M 600.2200, M600.2000, M100.3000, M300.2000, M300.3000, M100.2000, M100.4001 #### [facility] [address] [place], [address] Mucus Ql (Urine sed) 0 SEEN Normal [facility] Comment on above: Order Comment: SOLITARIO TER SPECIMEN Performed By: #### M 600.2200, M600.2000, M100.3000, M300.2000, M300.3000, M100.2000, M100.4001 #### [facility] [address] [place], [address] Urine clarityOrdered By: Deion Levy on 03-18-2025 Clarity (U) Clear Clear [facility] Urine color determinationOrd ered By: Deion Levy on 03-18-2025 Color (U) Yellow Yellow [facility] Urine glucose detectionOrder ed By: Deion Levy on 03-18-2025 Glucose Ql (U) Normal mg/dl Normal [facility] Urine leukocyte esterase det ection by dipstickOrdered By: Deion Levy on 03-18-2025 Leukocyte esterase Test strip Ql (U) Negative Negative [facility] Urine pHOrdered By: Deion kendrick on 03-18-2025 pH (U) 6.0 [pH] 5.0 - 8.0 [facility] Urine sediment bacteria coun t by microscopy (number/high power field)Ordered By: Deion Levy on 03-18-2025 Bacteria LM.HPF (Urine sed) [#/Area] 1 /[HPF] None Seen [facility] Urine specific gravity measu rementOrdered By: Deion Levy on 03-18-2025 Specific gravity (U) [Rel density] 1.015 1.002-1.030 [facility] Urine urobilinogen measureme ntOrdered By: Deion Levy on 03-18-2025 Urobilinogen Ql (U) Normal mg/dl Normal [facility] White blood cell (WBC) count Ordered By: Deion Levy on 03-18-2025 WBC (Bld) [#/Vol] 9.9 10*3/uL 4.4-11.0 [facility] White blood cell countOrdere d By: Deion Levy on 03-18-2025 White blood cell count 0-5 SEEN /hpf 0-5 [facility] CTA Chst, Abd, Pel W and/or WOon 03-17-2025 CTA Chst, Abd, Pel W and/or WO [facility] Imaging Services [address] [place] [address] CTA Chst, Abd, Pel W and/or WO MR#: [id number] Acct: [id number] Name: OSCAR WOO Rep #: [id number] : 1950 F 75 From: Jim Thorpe MD PCP: Dr. Hernando Grimes MD Status: REG CLI Study: CTA Chst, Abd, Pel W and/or WO Date of Exam: 0 03/17/25 Exam# [id number] Ordering Dr: Hernando Grimes MD PROCEDURE: CTA CHST, ABD, PEL W AND/OR WO 03/17/2025 REASON FOR EXAM: SHORTNESS OF BREATH/ FLUID RETENTION TECHNIQUE: Procedure Code: CTCTA.CHAP.2 Modality: CT Procedure: CTA CHST, ABD, PEL W AND/OR WO Coronal and Sagittal reconstruction series were provided. One or more dose reduction techniques were used (e.g., Automated exposure control, adjustment of the mA and/or kV according to patient size, use of iterative reconstruction technique. CONTRAST: Isovue 370 VOLUME: 100 mL RADIATION DOSE SUMMARY: CTDlvol: 31.91 mGy DLP: 2145.60 mGycm COMPARISON: None. FINDINGS: CHEST: Lines and tubes: None. Mediastinum: Unremarkable Heart: No cardiomegaly. Atherosclerotic calcifications of the coronary arteries. Thoracic Aorta: No aneurysm. No dissection. Lungs and Airways: Clear. Pleura: No pleural effusion or pneumothorax. Bones: Status post bilateral total shoulder replacement. No acute bony abnormalities. Other: None. ABDOMEN AND PELVIS: Liver: Liver steatosis. Gallbladder: Unremarkable. Spleen: No splenomegaly. Pancreas: Fatty infiltration. No evidence of pancreatitis or tumor. Adrenals: A 1.2 cm adenoma at the medial limb of the right adrenal gland. The left adrenal gland is unremarkable. Kidneys: Unremarkable. No hydronephrosis. No nephrolithiasis. Bladder: Unremarkable. Reproductive Organs: Unremarkable. Bowel: No bowel wall thickening. No bowel obstruction. Colonic diverticulosis with no evidence of acute diverticulitis. Vasculature: Infrarenal aortic aneurysm measures 3.8 x 4.5 x 5.5 cm. Peritoneum / Retroperitoneum: No free air or free fluid. Bones: Multilevel degenerate changes of the lumbar spine. Status post bilateral hip replacement. No acute bony abnormalities. CT/CTA Chst, Abd, Pel W and/or WO IMPRESSION: No aortic dissection. No significant vascular narrowing. Infrarenal saccular aortic aneurysm measures 3.8 x 4.5 x 5.5 cm. No acute abdominopelvic or chest abnormalities. Colonic diverticulosis with no evidence of acute diverticulitis. Reading Location: [facility] CC: Dr. Hernando Grimes MD Video Manager: Signed Normal [facility] Anion gap in Serum or Plasma Ordered By: Hernando Grimes on 03-10-2025 Anion gap [Moles/Vol] 12 mmol/L 11-14 [facility] BUN/creatinine ratioOrdered By: Hernando Grimes on 03-10-2025 Urea nitrogen/Creatinine [Mass ratio] 27.2 mg/mg High 10- [facility] Basic Metabolic Profile (BMP )on 03-10-2025 BUN/CRE 27.2 RATIO High - [facility] Comment on above: Order Comment: Order Date: 03/05/25Order Info: 0667-1 - BMP Performed By: #### M 600.2200, M600.2000, M100.3000, M300.2000, M300.3000, M100.2000, M100.4001 #### [facility] [address] [place], [address] Calcium [Mass/Vol] 9.4 mg/dL Normal 7.6-11.0 [facility] Comment on above: Order Comment: Order Date: 03/05/25Order Info: 0667-1 - BMP Performed By: #### M 600.2200, M600.2000, M100.3000, M300.2000, M300.3000, M100.2000, M100.4001 #### [facility] [address] [place], [place], [id number] Chloride [Moles/Vol] 95 mmol/L Low 98-108 [facility] Comment on above: Order Comment: Order Date: 03/05/25Order Info: 0667-1 - BMP Performed By: #### M 600.2200, M600.2000, M100.3000, M300.2000, M300.3000, M100.2000, M100.4001 #### [facility] [address] [place], [place], [id number] CO2 [Moles/Vol] 31.4 mmol/L Normal 21.0-32.0 [facility] Comment on above: Order Comment: Order Date: 03/05/25Order Info: 0667-1 - BMP Performed By: #### M 600.2200, M600.2000, M100.3000, M300.2000, M300.3000, M100.2000, M100.4001 #### [facility] [address] [place], [place], [id number] Creatinine [Mass/Vol] 1.03 mg/dL Normal 0.70-1.20 [facility] Comment on above: Order Comment: Order Date: 03/05/25Order Info: 0667-1 - BMP Performed By: #### M 600.2200, M600.2000, M100.3000, M300.2000, M300.3000, M100.2000, M100.4001 #### [facility] [address] [place], [place], [address] GAP 12 Normal 5-15 [facility] Comment on above: Order Comment: Order Date: 03/05/25Order Info: [id number] - BMP Performed By: #### M 600.2200, M600.2000, M100.3000, M300.2000, M300.3000, M100.2000, M100.4001 #### [facility] [address] [place], [address] GFR/1.73 sq M.predicted among non-blacks MDRD (S/P/Bld) [Vol rate/Area] 56 mL/min/{1.73_m2} Low >60 [facility] Comment on above: Order Comment: Order Date: 03/05/25Order Info: [id number] - BMP Result Comment: mL/m in/1.73m2 CKD-EPI Creatinine Equation (2020) Performed By: #### M 600.2200, M600.2000, M100.3000, M300.2000, M300.3000, M100.2000, M100.4001 #### [facility] [address] [place], [address] Glucose [Mass/Vol] 79 mg/dL Normal 70-99 [facility] Comment on above: Order Comment: Order Date: 03/05/25Order Info: [id number] - BMP Performed By: #### M 600.2200, M600.2000, M100.3000, M300.2000, M300.3000, M100.2000, M100.4001 #### [facility] [address] [place], [address] Potassium [Moles/Vol] 4.3 mmol/L Normal 3.3-5.1 [facility] Comment on above: Order Comment: Order Date: 03/05/25Order Info: [id number] - BMP Performed By: #### M 600.2200, M600.2000, M100.3000, M300.2000, M300.3000, M100.2000, M100.4001 #### [facility] [address] [place], [address] Sodium [Moles/Vol] 138 mmol/L Normal 133-145 [facility] Comment on above: Order Comment: Order Date: 03/05/25Order Info: [id number] - BMP Performed By: #### M 600.2200, M600.2000, M100.3000, M300.2000, M300.3000, M100.2000, M100.4001 #### [facility] [address] [place], [place], [address] Urea nitrogen [Mass/Vol] 28 mg/dL High 4-19 [facility] Comment on above: Order Comment: Order Date: 03/05/25Order Info: [id number] - BMP Performed By: #### M 600.2200, M600.2000, M100.3000, M300.2000, M300.3000, M100.2000, M100.4001 #### [facility] [address] [place], [place], [id number] Carbon dioxide, total [Moles /volume] in Central venous bloodOrdered By: Hernando Grimes on 03-10-2025 CO2 [Moles/Vol] 31.4 mmol/L 21.0-32.0 [facility] Chloride assayOrdered By: Blas Grimes on 03-10-2025 Chloride [Moles/Vol] 95 mmol/L Low 98-108 [facility] Glomerular filtration rate ( GFR) estimation/1.73 sq m using serum, plasma, or whole bOrdered By: Hernando Grimes on 03-10-2025 GFR/1.73 sq M.predicted among non-blacks MDRD (S/P/Bld) [Vol rate/Area] 56 mL/min/{1.73_m2} Low >60 [facility] Comment on above: mL/min/1.73m2 CKD-EP I Creatinine Equation (2020) Potassium measurement (mass/ volume)Ordered By: Hernando Grimes on 03-10-2025 Potassium (Unsp spec) [Mass/Vol] 4.3 mmol/L 3.3-5.1 [facility] Serum creatinine measurement (mass/volume)Ordered By: Hernando Grimes on 03-10-2025 Creatinine [Mass/Vol] 1.03 mg/dL 0.70-1.20 [facility] Serum glucose measurement (m ass/volume)Ordered By: Hernando Grimes on 03-10-2025 Glucose [Mass/Vol] 79 mg/dL 70-99 [facility] Serum or plasma calcium lisa urement (mass/volume)Ordered By: Hernando Grimes on 03-10-2025 Calcium [Mass/Vol] 9.4 mg/dL 7.6-11.0 [facility] Serum or plasma urea nitroge n measurement (mass/volume)Ordered By: Hernando Grimes on 03-10-2025 Urea nitrogen [Mass/Vol] 28 mg/dL High 4-19 [facility] Sodium levelOrdered By: Hernando Grimes on 03-10-2025 Sodium [Moles/Vol] 138 mmol/L 133-145 [facility] Anion gap in Serum or Plasma Ordered By: Hernando Grimes on 03-04-2025 Anion gap [Moles/Vol] 10 mmol/L 5-15 [facility] BUN/creatinine ratioOrdered By: Hernando Grimes on 03-04-2025 Urea nitrogen/Creatinine [Mass ratio] 36.5 mg/mg High 10-20 [facility] Bilirubin, totalOrdered By: Hernando Grimes on 03-04-2025 Bilirubin [Mass/Vol] 0.35 mg/dL 0.00-1.30 [facility] Carbon dioxide, total [Moles /volume] in Central venous bloodOrdered By: Hernando Grimes on 03-04-2025 CO2 [Moles/Vol] 34.8 mmol/L High 21.0-32.0 [facility] Chloride assayOrdered By: Blas Grimes on 03-04-2025 Chloride [Moles/Vol] 95 mmol/L Low 98-108 [facility] Comprehensive Metabolic Prof ilon 03-04-2025 Albumin [Mass/Vol] 3.7 g/dL Normal 3.4-4.8 [facility] Comment on above: Order Comment: Order Date: 02/18/25Order Info: [id number] - CMPOrder Info: [id number] - MG Performed By: #### M 600.2200, M600.2000, M100.3000, M300.2000, M300.3000, M100.2000, M100.4001 #### [facility] [address] [place], [place], [address] Albumin/Globulin [Mass ratio] 1.3 {ratio} Normal 0.9-2.4 [facility] Comment on above: Order Comment: Order Date: 02/18/25Order Info: [id number] - CMPOrder Info: [id number] - MG Performed By: #### M 600.2200, M600.2000, M100.3000, M300.2000, M300.3000, M100.2000, M100.4001 #### [facility] [address] [place], [place], [id number] ALK PHOS 125 U/L High 35-104 [facility] Comment on above: Order Comment: Order Date: 02/18/25Order Info: [id number] - CMPOrder Info: - MG Performed By: #### M 600.2200, M600.2000, M100.3000, M300.2000, M300.3000, M100.2000, M100.4001 #### [facility] [address] [place], [place], [id number] ALT [Catalytic activity/Vol] 22 U/L Normal <=34 [facility] Comment on above: Order Comment: Order Date: 02/18/25Order Info: [id number] - CMPOrder Info: - MG Performed By: #### M 600.2200, M600.2000, M100.3000, M300.2000, M300.3000, M100.2000, M100.4001 #### [facility] [address] [place], [place], [address] AST [Catalytic activity/Vol] 28 U/L Normal <=31 [facility] Comment on above: Order Comment: Order Date: 02/18/25Order Info: [id number] - CMPOrder Info: [id number] - MG Performed By: #### M 600.2200, M600.2000, M100.3000, M300.2000, M300.3000, M100.2000, M100.4001 #### [facility] [address] [place], [place], [id number] Bilirubin [Mass/Vol] 0.35 mg/dL Normal 0.00-1.30 [facility] Comment on above: Order Comment: Order Date: 02/18/25Order Info: [id number] - CMPOrder Info: [id number] - MG Performed By: #### M 600.2200, M600.2000, M100.3000, M300.2000, M300.3000, M100.2000, M100.4001 #### [facility] [address] [place], [place], [id number] BUN/CRE 36.5 RATIO High 10-20 [facility] Comment on above: Order Comment: Order Date: 02/18/25Order Info: [id number] - CMPOrder Info: [id number] - MG Performed By: #### M 600.2200, M600.2000, M100.3000, M300.2000, M300.3000, M100.2000, M100.4001 #### [facility] [address] [place], [place], [id number] Calcium [Mass/Vol] 9.2 mg/dL Normal 7.6-11.0 [facility] Comment on above: Order Comment: Order Date: 02/18/25Order Info: [id number] - CMPOrder Info: [id number] - MG Performed By: #### M 600.2200, M600.2000, M100.3000, M300.2000, M300.3000, M100.2000, M100.4001 #### [facility] [address] [place], [place], [phone] Chloride [Moles/Vol] 95 mmol/L Low 98-108 [facility] Comment on above: Order Comment: Order Date: 02/18/25Order Info: [id number] - CMPOrder Info: [id number] - MG Performed By: #### M 600.2200, M600.2000, M100.3000, M300.2000, M300.3000, M100.2000, M100.4001 #### [facility] [address] [place], [place], [id number] CO2 [Moles/Vol] 34.8 mmol/L High 21.0-32.0 [facility] Comment on above: Order Comment: Order Date: 02/18/25Order Info: [id number] - CMPOrder Info: [id number] - MG Performed By: #### M 600.2200, M600.2000, M100.3000, M300.2000, M300.3000, M100.2000, M100.4001 #### [facility] [address] [place], [address] Creatinine [Mass/Vol] 1.73 mg/dL High 0.70-1.20 [facility] Comment on above: Order Comment: Order Date: 02/18/25Order Info: [id number] - CMPOrder Info: [id number] - MG Performed By: #### M 600.2200, M600.2000, M100.3000, M300.2000, M300.3000, M100.2000, M100.4001 #### [facility] [address] [place], [place], [id number] GAP 10 Normal 5-15 [facility] Comment on above: Order Comment: Order Date: 02/18/25Order Info: [id number] - CMPOrder Info: [id number] - MG Performed By: #### M 600.2200, M600.2000, M100.3000, M300.2000, M300.3000, M100.2000, M100.4001 #### [facility] [address] [place], [place], [id number] GFR/1.73 sq M.predicted among non-blacks MDRD (S/P/Bld) [Vol rate/Area] 30 mL/min/{1.73_m2} Low >60 [facility] Comment on above: Order Comment: Order Date: 02/18/25Order Info: [id number] - CMPOrder Info: [id number] - MG Result Comment: mL/m in/1.73m2 CKD-EPI Creatinine Equation (2020) Performed By: #### M 600.2200, M600.2000, M100.3000, M300.2000, M300.3000, M100.2000, M100.4001 #### [facility] [address] [place], [place], [address] Globulin (S) [Mass/Vol] 2.9 g/dL Normal 2.2-4.2 [facility] Comment on above: Order Comment: Order Date: 02/18/25Order Info: [id number] - CMPOrder Info: [id number] - MG Performed By: #### M 600.2200, M600.2000, M100.3000, M300.2000, M300.3000, M100.2000, M100.4001 #### [facility] [address] [place], [place], [address] Glucose [Mass/Vol] 93 mg/dL Normal 70-99 [facility] Comment on above: Order Comment: Order Date: 02/18/25Order Info: [id number] - CMPOrder Info: [id number] - MG Performed By: #### M 600.2200, M600.2000, M100.3000, M300.2000, M300.3000, M100.2000, M100.4001 #### [facility] [address] [place], [place], [address] Potassium [Moles/Vol] 4.0 mmol/L Normal 3.3-5.1 [facility] Comment on above: Order Comment: Order Date: 02/18/25Order Info: [id number] - CMPOrder Info: [id number] - MG Performed By: #### M 600.2200, M600.2000, M100.3000, M300.2000, M300.3000, M100.2000, M100.4001 #### [facility] [address] [place], [address] Sodium [Moles/Vol] 139 mmol/L Normal 133-145 [facility] Comment on above: Order Comment: Order Date: 02/18/25Order Info: [id number] - CMPOrder Info: [id number] - MG Performed By: #### M 600.2200, M600.2000, M100.3000, M300.2000, M300.3000, M100.2000, M100.4001 #### [facility] [address] [place], [address] T PROT 6.6 g/dL Normal 5.9-8.4 [facility] Comment on above: Order Comment: Order Date: 02/18/25Order Info: [id number] - CMPOrder Info: [id number] - MG Performed By: #### M 600.2200, M600.2000, M100.3000, M300.2000, M300.3000, M100.2000, M100.4001 #### [facility] [address] [place], [address] Urea nitrogen [Mass/Vol] 63 mg/dL High 4-19 [facility] Comment on above: Order Comment: Order Date: 02/18/25Order Info: [id number] - CMPOrder Info: [id number] - MG Performed By: #### M 600.2200, M600.2000, M100.3000, M300.2000, M300.3000, M100.2000, M100.4001 #### [facility] [address] [place], [address] Echo Complete W/ Contraston 03-04-2025 Echo Complete W/ Contrast [facility] [address] [place] [address] Echo Complete W/ Contrast 03/04/25 0957 MR#: [id number] Acct: [id number] Name: OSCAR WOO Rep #: [id number] : 1950 75 From: Carlene Salazar MD Attending Dr: Dr. Hernando Grimes MD Status: REG CL I Ordering Dr: Hernando Grimes MD Date: 03/04/25 Location: [facility] Sex: F C Admitted: Reason For Study Reason For Study: Acute Diastolic CHF Procedure This was a 2D Doppler, Color Flow transthoracic echocardiogram. The study was technically difficult. Contrast injection was performed. Exam performed in department. Left Ventricle Normal LV size. Mild concentric left ventricular hypertrophy. The left ventricular ejection fraction is 70 %. Stage 1 diastolic dysfunction. Right Ventricle Normal right ventricle. Atria The left and right atria are normal. Mitral Valve There is Mild focal posterior mitral annular calcification. Trivial mitral valve insufficiency. Tricuspid Valve Trivial tricuspid valve insufficiency. Normal pulmonary artery pressure. Aortic Valve Trisinus/trileaflet aortic valve. Pulmonic Valve The pulmonic valve is not well visualized. Great Vessels Normal sized aortic root. Pericardium/Pleural No pericardial effusion. Medication 22 gauge I.V. with prn adaptor inserted into right arm. Diluted definity 3ml given slow IV push to enhance endocardial definition. MMode/2D Measurements Calculations LVIDd: 4.3 cm IVSd: 1.4 cm Ao root diam: 3.6 cm LVIDs: 3.0 cm LVPWd: 1.3 cm RVDd: 3.2 cm FS: 29.1 % LAV(MOD-bp): 65.1 ml LVAd ap4: 35.0 cm2 SV(MOD-sp4): 95.7 ml LAV(MOD-bp) Indexed: 29.8 ml/m2 LVLd ap4: 8.2 cm SI(MOD-sp4): 43.8 ml/m2 LAV(MOD-sp2): 69.9 ml EDV(MOD-sp4): 123.7 ml LAV(MOD-sp4): 56.2 ml EDV(sp4-el): 126.1 ml LVAs ap4: 14.4 cm2 LVLs ap4: 6.1 cm ESV(MOD-sp4): 28.1 ml ESV(sp4-el): 28.8 ml EF(MOD-sp4): 77.3 % EF(sp4-el): 77.1 % SV(sp4-el): 97.3 ml LA A4 area: 19.9 cm2 LA dimension(2D): 3.9 cm RA A4 area: 15.6 cm2 TAPSE: 1.7 cm Time Measurements MV dec time: 0.17 sec Doppler Measurements Calculations MV E max natacha: 80.9 cm/sec Lat Peak E' Natacha: 7.4 cm/sec Med Peak E' Natacha: 5.0 cm/sec MV A max natacha: 82.2 cm/sec E/E' lat: 10.9 E/E' med: 16.1 MV E/A: 0.98 MV V2 max: 93.2 cm/sec MV P1/2t max natacha: 94.6 cm/sec Ao V2 max: 158.8 cm/sec MV max P.5 mmHg MV P1/2t: 61.5 msec Ao max P.1 mmHg MV V2 mean: 56.7 cm/sec MV dec slope: 450.8 cm/sec2 Ao V2 mean: 107.1 cm/sec MV mean P.5 mmHg MVA(P1/2t): 3.6 cm2 Ao mean P.3 mmHg MV V2 VTI: 23.2 cm Ao V2 VTI: 31.0 cm AV (velocity ratio): 0.86 LV V1 max: 141.0 cm/sec MR max natacha: 440.9 cm/sec PA V2 max: 83.4 cm/sec LV V1 max P.0 mmHg MR max P.7 mmHg LV V1 mean P.0 mmHg LV V1 mean: 91.6 cm/sec LV V1 VTI: 26.5 cm TR max natacha: 227.1 cm/sec TR max P.6 mmHg ECHO/Echo Complete W/ Contrast Interpretation Summary Mild concentric left ventricular hypertrophy. The left ventricular ejection fraction is 70 %. Stage 1 diastolic dysfunction. There is Mild focal posterior mitral annular calcification. The study was technically difficult. Ordering Physician: Hernando Grimes Referring Physician: Hernando Grimes Performed By: Xavier Castano RCS 03/04/25 1237 Date Carlene Salazar MD CC: Dr. Hernando Grimes MD Date Dictated: 03/04/25956 Date Transcribed: 03/04/25 1237 Video Manager: Signed Normal [facility] Echocardiogram study reportO rdered By: Carlene Salazar on 03-04-2025 Study report [facility] [address] [place] [address] Echo Complete W/ Contrast 03/04/25956 MR#: [id number] Acct: [id number] Name: OSCAR WOO Rep #:[id number] : 1950 75 From: Carlene Salazar MD Attending Dr: Dr. Hernando Grimes MD atus: REG CLI Ordering Dr: Hernando Grimes MD Date: 08/27 Location: [facility] Sex: F C Admitted: Reason For Study Reason For Study: Acute Diastolic CHF Procedure This was a 2D Doppler, Color Flow transthoracic echocardiogram. The study was technically difficult. Contrast injection was performed. Exam performed in department. Left Ventricle Normal LV size. Mild concentric left ventricular hypertrophy. The left ventricular ejection fraction is 70 %. Stage 1 diastolic dysfunction. Right Ventricle Normal right ventricle. Atria The left and right atria are normal. Mitral Valve There is Mild focal posterior mitral annular calcification. Trivial mitral valveinsufficiency. Tricuspid Valve Trivial tricuspid valve insufficiency. Normal pulmonary artery pressure. Aortic Valve Trisinus/trileaflet aortic valve. Pulmonic Valve The pulmonic valve is not well visualized. Great Vessels Normal sized aortic root. Pericardium/Pleural No pericardial effusion. Medication 22 gauge I.V. with prn adaptor inserted into right arm. Diluted definity 3ml given slow IV push to enhance endocardial definition. MMode/2D Measurements & Calculations LVIDd: 4.3 cm IVSd: 1.4 cm Ao root diam: 3.6 cm LVIDs: 3.0 cm LVPWd: 1.3 cm RVDd: 3.2 cm FS: 29.1 % LAV(MOD-bp): 65.1 ml LVAd ap4: 35.0 cm2 SV(MOD-sp4): 95.7 ml LAV(MOD-bp) Indexed: 29.8 ml/m2 LVLd ap4: 8.2 cm SI(MOD-sp4): 43.8 ml/m2 LAV(MOD-sp2): 69.9 ml EDV(MOD-sp4): 123.7 ml LAV(MOD-sp4): 56.2 ml EDV(sp4-el): 126.1 ml LVAs ap4: 14.4 cm2 LVLs ap4: 6.1 cm ESV(MOD-sp4): 28.1 ml ESV(sp4-el): 28.8 ml EF(MOD-sp4): 77.3 % EF(sp4-el): 77.1 % SV(sp4-el): 97.3 ml LA A4 area: 19.9 cm2 LA dimension(2D): 3.9 cm RA A4 area: 15.6 cm2 TAPSE: 1.7 cm Time Measurements MV dec time: 0.17 sec Doppler Measurements & Calculations MV E max natacha: 80.9 cm/sec Lat Peak E' Natacha: 7.4 cm/sec Med Peak E' Natacha: 5.0 cm/sec MV A max natacha: 82.2 cm/sec E/E' lat: 10.9 E/E' med: 16.1 MV E/A: 0.98 MV V2 max: 93.2 cm/sec MV P1/2t max natacha: 94.6 cm/sec Ao V2 max: 158.8 cm/sec MV max P.5 mmHg MV P1/2t: 61.5 msec Ao max P.1 mmHg MV V2 mean: 56.7 cm/sec MV dec slope: 450.8 cm/sec2 Ao V2 mean: 107.1 cm/sec MV mean P.5 mmHg MVA(P1/2t): 3.6 cm2 Ao mean P.3 mmHg MV V2 VTI: 23.2 cm Ao V2 VTI: 31.0 cm AV (velocity ratio): 0.86 LV V1 max: 141.0 cm/sec MR max natacha: 440.9 cm/sec PA V2 max: 83.4 cm/sec LV V1 max P.0 mmHg MR max P.7 mmHg LV V1 mean P.0 mmHg LV V1 mean: 91.6 cm/sec LV V1 VTI: 26.5 cm TR max natacha: 227.1 cm/sec TR max P.6 mmHg ECHO/Echo Complete W/ Contrast Interpretation Summary Mild concentric left ventricular hypertrophy. The left ventricular ejection fraction is 70 %. Stage 1 diastolic dysfunction. There is Mild focal posterior mitral annular calcification. The study was technically difficult. Ordering Physician: Hernando Grimes Referring Physician: Hernando Grimes Performed By: Xavier Castano [facility] 03/04/25 1237 Date _ Carlene Salazar MD CC: Dr. Hernando Grimes MD ~ Date Dictated: 03/04/2557 Date Transcribed: 03/04/25 123 Video Manager: Signed [facility] Work Phone: Glomerular filtration rate ( GFR) estimation/1.73 sq m using serum, plasma, or whole bOrdered By: Hernando Grimes on 03-04-2025 GFR/1.73 sq M.predicted among non-blacks MDRD (S/P/Bld) [Vol rate/Area] 30 mL/min/{1.73_m2} Low >60 [facility] Comment on above: mL/min/1.73m2 CKD-EP I Creatinine Equation (2020) Laboratory - Chemistry and C hemistry - challengeOrdered By: Hernando Grimes on 03-04-2025 AST [Catalytic activity/Vol] 28 U/L <32 [facility] Magnesiumon 03-04-2025 Magnesium [Mass/Vol] 1.9 mg/dL Normal 1.5-2.2 [facility] Comment on above: Order Comment: Order Date: 02/18/25Order Info: [id number] - CMPOrder Info: [id number] - MG Performed By: #### M 600.2200, M600.2000, M100.3000, M300.2000, M300.3000, M100.2000, M100.4001 #### [facility] [address] [place], [address] Magnesium measurement (mass/ volume)Ordered By: Hernando Grimes on 03-04-2025 Magnesium (Unsp spec) [Mass/Vol] 1.9 mg/dL 1.5-2.2 [facility] Potassium measurement (mass/ volume)Ordered By: Hernando Grimes on 03-04-2025 Potassium (Unsp spec) [Mass/Vol] 4.0 mmol/L 3.3-5.1 [facility] Serum creatinine measurement (mass/volume)Ordered By: Hernando Grimes on 03-04-2025 Creatinine [Mass/Vol] 1.73 mg/dL High 0.70-1.20 [facility] Serum globulin measurementOr dered By: Hernando Grimes on 03-04-2025 Globulin (S) [Mass/Vol] 2.9 g/dL 2.2-4.2 [facility] Serum glucose measurement (m ass/volume)Ordered By: Hernando Grimes on 03-04-2025 Glucose [Mass/Vol] 93 mg/dL 70-99 [facility] Serum or plasma alanine gao otransferase (ALT) measurementOrdered By: Hernando Grimes on 03-04-2025 ALT [Catalytic activity/Vol] 22 U/L <35 [facility] Serum or plasma albumin lisa urement (mass/volume)Ordered By: Hernando Grimes on 03-04-2025 Albumin [Mass/Vol] 3.7 g/dL 3.4-4.8 [facility] Serum or plasma albumin/glob ulin mass ratioOrdered By: Hernando Grimes on 03-04-2025 Albumin/Globulin [Mass ratio] 1.3 {ratio} 0.9-2.4 [facility] Serum or plasma alkaline bee sphatase measurementOrdered By: Hernando Grimes on 03-04-2025 ALP [Catalytic activity/Vol] 125 U/L High 35-104 [facility] Serum or plasma calcium lisa urement (mass/volume)Ordered By: Hernando Grimes on 03-04-2025 Calcium [Mass/Vol] 9.2 mg/dL 7.6-11.0 [facility] Serum or plasma urea nitroge n measurement (mass/volume)Ordered By: Hernando Grimes on 03-04-2025 Urea nitrogen [Mass/Vol] 63 mg/dL High 4-19 [facility] Sodium levelOrdered By: Hernando Grimes on 03-04-2025 Sodium [Moles/Vol] 139 mmol/L 133-145 [facility] Total proteinOrdered By: Esmer Grimes on 03-04-2025 Protein [Mass/Vol] 6.6 g/dL 5.9-8.4 [facility] Acid Fast Bacillus Cultureon 02-19-2025 tAFBC TESTING PERFORMED AT [facility]. ORIGINAL REPORT ON FILE IN LAB CONTAINS ADDITIONAL TEST SITE INFORMATION. Culture, Acid Fast NO ACID-FAST BACILLI ISOLATED AFTER 6 WEEKS. [facility] Comment on above: Performed By: #### M 600.2200, M600.2000, M100.3000, M300.2000, M300.3000, M100.2000, M100.4001 #### [facility] [address] [place], [address] Acid Fast Bacillus Smear/Flu oron 02-19-2025 tafb TESTING PERFORMED AT [facility]. ORIGINAL REPORT ON FILE IN LAB CONTAINS ADDITIONAL TEST SITE INFORMATION. Smear, Acid Fast Acid Fast Smear from Concentrated Specimen :Negative Normal [facility] Comment on above: Performed By: #### M 600.2200, M600.2000, M100.3000, M300.2000, M300.3000, M100.2000, M100.4001 #### [facility] [address] [place], [address] Culture, Fungus 8482on 02-19 CUF TESTING PERFORMED AT [facility]. ORIGINAL REPORT ON FILE IN LAB CONTAINS ADDITIONAL TEST SITE INFORMATION. CUF No yeast or mold isolated after 4 weeks. [facility] Comment on above: Performed By: #### M 600.2200, M600.2000, M100.3000, M300.2000, M300.3000, M100.2000, M100.4001 #### [facility] [address] [place], [place], [id number] Absolute lymphocyte countOrd ered By: Hernando Grimes on 02-10-2025 Lymphocytes Auto (Unsp spec) [#/Vol] 1.51 10*3/uL 0.83-4.51 [facility] Absolute neutrophil countOrd ered By: Hernando Grimes on 02-10-2025 Neutrophils (Bld) [#/Vol] 7.4 10*3/uL 2.0-7.7 [facility] Anion gap in Serum or Plasma Ordered By: Hernando Grimes on 02-10-2025 Anion gap [Moles/Vol] 14 mmol/L 5-15 [facility] Automated lymphocyte count a s percentage of total leukocytesOrdered By: Hernando Grimes on 02-10-2025 Lymphocytes/100 WBC Auto (Unsp spec) 15.2 % Low 19-41 [facility] BUN/creatinine ratioOrdered By: Hernando Grimes on 02-10-2025 Urea nitrogen/Creatinine [Mass ratio] 26.9 mg/mg High 10-20 [facility] Basophil percentageOrdered B y: Hernando Grimes on 02-10-2025 Basophils/100 WBC (Bld) 0.5 % 0-1 [facility] Bilirubin, totalOrdered By: Hernando Grimes on 02-10-2025 Bilirubin [Mass/Vol] 0.39 mg/dL 0.00-1.30 [facility] CBC W/Diff, Automatedon 01-31 Absolute Lymph 1.51 X10 3/uL Normal 0.83-4.51 [facility] Comment on above: Order Comment: Order Date: 02/10/25Order Info: 0184-1 - CBCD Performed By: #### M 600.2200, M600.2000, M100.3000, M300.2000, M300.3000, M100.2000, M100.4001 #### [facility] Laboratory [address] [place], [place], [address] Absolute Neut 7.4 X10 3/uL Normal 2.0-7.7 [facility] Comment on above: Order Comment: Order Date: 02/10/25Order Info: 0184-1 - CBCD Performed By: #### M 600.2200, M600.2000, M100.3000, M300.2000, M300.3000, M100.2000, M100.4001 #### [facility] [address] [place], [place], [id number] Basophils/100 WBC (Bld) 0.5 % Normal 0-1 [facility] Comment on above: Order Comment: Order Date: 02/10/25Order Info: 0184-1 - CBCD Performed By: #### M 600.2200, M600.2000, M100.3000, M300.2000, M300.3000, M100.2000, M100.4001 #### [facility] [address] [place], [place], [id number] Eosinophils/100 WBC (Bld) 2.4 % Normal 0-5 [facility] Comment on above: Order Comment: Order Date: 02/10/25Order Info: 0184-1 - CBCD Performed By: #### M 600.2200, M600.2000, M100.3000, M300.2000, M300.3000, M100.2000, M100.4001 #### [facility] [address] [place], [place], [phone] Erythrocyte distribution width (RBC) [Ratio] 13.6 % Normal 11.6-14.6 [facility] Comment on above: Order Comment: Order Date: 02/10/25Order Info: 0184-1 - CBCD Performed By: #### M 600.2200, M600.2000, M100.3000, M300.2000, M300.3000, M100.2000, M100.4001 #### [facility] [address] [place], [place], [id number] Hematocrit (Bld) [Volume fraction] 43.3 % Normal 37-47 [facility] Comment on above: Order Comment: Order Date: 02/10/25Order Info: 0184-1 - CBCD Performed By: #### M 600.2200, M600.2000, M100.3000, M300.2000, M300.3000, M100.2000, M100.4001 #### [facility] [address] [place], [address] Hemoglobin (Bld) [Mass/Vol] 13.7 g/dL Normal 12.0-15.0 [facility] Comment on above: Order Comment: Order Date: 02/10/25Order Info: 0184-1 - CBCD Performed By: #### M 600.2200, M600.2000, M100.3000, M300.2000, M300.3000, M100.2000, M100.4001 #### [facility] [address] [place], [address] IG% 0.400 Normal 0.0-0.9 [facility] Comment on above: Order Comment: Order Date: 02/10/25Order Info: 0184-1 - CBCD Result Comment: IG% - Immature Granulocytes (promyelocytes, myelocytes and metamyelocytes) > 1% indicates that a LEFT SHIFT is Present. Performed By: #### M 600.2200, M600.2000, M100.3000, M300.2000, M300.3000, M100.2000, M100.4001 #### [facility] [address] [place], [address] Lymphocytes/100 WBC (Bld) 15.2 % Low 19-41 [facility] Comment on above: Order Comment: Order Date: 02/10/25Order Info: 0184-1 - CBCD Performed By: #### M 600.2200, M600.2000, M100.3000, M300.2000, M300.3000, M100.2000, M100.4001 #### [facility] [address] [place], [place], [phone] MCH (RBC) [Entitic mass] 29.1 pg Normal 27.0-32.0 [facility] Comment on above: Order Comment: Order Date: 02/10/25Order Info: 0184-1 - CBCD Performed By: #### M 600.2200, M600.2000, M100.3000, M300.2000, M300.3000, M100.2000, M100.4001 #### [facility] [address] [place], [address] MCHC (RBC) [Mass/Vol] 31.6 g/dL Low 32-36 [facility] Comment on above: Order Comment: Order Date: 02/10/25Order Info: 0184-1 - CBCD Performed By: #### M 600.2200, M600.2000, M100.3000, M300.2000, M300.3000, M100.2000, M100.4001 #### [facility] [address] [place], [place], [address] MCV (RBC) [Entitic vol] 92.1 fL Normal 81-99 [facility] Comment on above: Order Comment: Order Date: 02/10/25Order Info: 0184-1 - CBCD Performed By: #### M 600.2200, M600.2000, M100.3000, M300.2000, M300.3000, M100.2000, M100.4001 #### [facility] [address] [place], [address] Monocytes/100 WBC (Bld) 7.3 % Normal 0-10 [facility] Comment on above: Order Comment: Order Date: 02/10/25Order Info: 0184-1 - CBCD Performed By: #### M 600.2200, M600.2000, M100.3000, M300.2000, M300.3000, M100.2000, M100.4001 #### [facility] [address] [place], [address] Neutrophils/100 WBC (Bld) 74.2 % High 47-70 [facility] Comment on above: Order Comment: Order Date: 02/10/25Order Info: 0184-1 - CBCD Performed By: #### M 600.2200, M600.2000, M100.3000, M300.2000, M300.3000, M100.2000, M100.4001 #### [facility] [address] [place], [address] Nucleated RBC (Bld) [#/Vol] 0 10*3/uL Normal 0-5 [facility] Comment on above: Order Comment: Order Date: 02/10/25Order Info: 0184-1 - CBCD Performed By: #### M 600.2200, M600.2000, M100.3000, M300.2000, M300.3000, M100.2000, M100.4001 #### [facility] [address] [place], [place], [address] Platelet mean volume (Bld) [Entitic vol] 10.8 fL Normal 6.2-12.0 [facility] Comment on above: Order Comment: Order Date: 02/10/25Order Info: 0184-1 - CBCD Performed By: #### M 600.2200, M600.2000, M100.3000, M300.2000, M300.3000, M100.2000, M100.4001 #### [facility] [address] [place], [place], [address] Platelets (Bld) [#/Vol] 166 10*3/uL Normal 150-450 [facility] Comment on above: Order Comment: Order Date: 02/10/25Order Info: 0184-1 - CBCD Performed By: #### M 600.2200, M600.2000, M100.3000, M300.2000, M300.3000, M100.2000, M100.4001 #### [facility] [address] [place], [address] RBC (Bld) [#/Vol] 4.70 10*6/uL Normal 4.2-5.4 [facility] Comment on above: Order Comment: Order Date: 02/10/25Order Info: 0184-1 - CBCD Performed By: #### M 600.2200, M600.2000, M100.3000, M300.2000, M300.3000, M100.2000, M100.4001 #### [facility] [address] [place], [address] RDW SD 45.9 fl High 35.1-43.9 [facility] Comment on above: Order Comment: Order Date: 02/10/25Order Info: 0184-1 - CBCD Performed By: #### M 600.2200, M600.2000, M100.3000, M300.2000, M300.3000, M100.2000, M100.4001 #### [facility] [address] [place], [place], [address] (713) WBC (Bld) [#/Vol] 9.9 10*3/uL Normal 4.4-11.0 [facility] Comment on above: Order Comment: Order Date: 02/10/25Order Info: 0184-1 - CBCD Performed By: #### M 600.2200, M600.2000, M100.3000, M300.2000, M300.3000, M100.2000, M100.4001 #### [facility] Laboratory [address] [place], [place], [address] Carbon dioxide, total [Moles /volume] in Central venous bloodOrdered By: Hernando Grimes on 02-10-2025 CO2 [Moles/Vol] 29.4 mmol/L 21.0-32.0 [facility] Chest PA and Lateralon 02-10 Chest PA and Lateral [facility] Imaging Services [address] [place], [place] [address] Chest PA and Lateral MR#: [id number] Acct: [id number] Name: OSCAR WOO Rep #: [id number] : 1950 F 75 From: Diana Kendrick PCP: Dr. Hernando Grimes MD Status: REG CLI Study: Chest PA and Lateral Date of Exam: 02/10/25 Exam# [id number] Ordering Dr: Hernando Grimes MD PROCEDURE: CHEST PA AND LATERAL 02/10/2025 REASON FOR EXAM: R RALES TECHNIQUE: CHEST PA AND LATERAL COMPARISON: Chest x-ray study dated 09/15/2024 FINDINGS: Hardware: Bilateral visualized shoulder hardware appears to be intact without evidence of fracture or loosening. The entire components are not entirely included on this study. Heart: Heart size and configuration are within normal limits. Mediastinum: Mediastinal silhouette is within normal limits. Arteriosclerotic vascular disease of the aorta is noted. Trachea is midline. Lungs: Prominent interstitial markings are identified in the lung bases bilaterally and are similar when compared to the prior exam. There is no atelectasis, consolidation, effusion or pneumothorax. Emphysematous changes are noted. Bones: Diffuse osteopenia of the bony thorax is noted. The right PICC line catheter seen on the prior exam has been removed in the interim. RAD/Chest PA and Lateral IMPRESSION: The overall chest x-ray findings are similar when compared to the prior exam. Reading Location: [id number] CC: Dr. Hernando Grimes MD Video Manager: Signed Normal [facility] Chloride assayOrdered By: Blas Grimes on 02-10-2025 Chloride [Moles/Vol] 96 mmol/L Low 98-108 [facility] Comprehensive Metabolic Prof ilon 02-10-2025 Albumin [Mass/Vol] 3.9 g/dL Normal 3.4-4.8 [facility] Comment on above: Order Comment: Order Date: 02/10/25Order Info: [id number] - CMPOrder Info: [id number] - MG Performed By: #### M 600.2200, M600.2000, M100.3000, M300.2000, M300.3000, M100.2000, M100.4001 #### [facility] Laboratory [address] [place], [address] Albumin/Globulin [Mass ratio] 1.3 {ratio} Normal 0.9-2.4 [facility] Comment on above: Order Comment: Order Date: 02/10/25Order Info: 0786-1 - CMPOrder Info: [id number] - MG Performed By: #### M 600.2200, M600.2000, M100.3000, M300.2000, M300.3000, M100.2000, M100.4001 #### [facility] [address] [place], [place], [id number] ALK PHOS 147 U/L High 35-104 [facility] Comment on above: Order Comment: Order Date: 02/10/25Order Info: [id number] - CMPOrder Info: - MG Performed By: #### M 600.2200, M600.2000, M100.3000, M300.2000, M300.3000, M100.2000, M100.4001 #### [facility] Laboratory [address] [place], [place], [id number] ALT [Catalytic activity/Vol] 27 U/L Normal <=34 [facility] Comment on above: Order Comment: Order Date: 02/10/25Order Info: [id number] - CMPOrder Info: - MG Performed By: #### M 600.2200, M600.2000, M100.3000, M300.2000, M300.3000, M100.2000, M100.4001 #### [facility] [address] [place], [place], [id number] AST [Catalytic activity/Vol] 36 U/L High <=31 [facility] Comment on above: Order Comment: Order Date: 02/10/25Order Info: 0786-1 - CMPOrder Info: [id number] - MG Performed By: #### M 600.2200, M600.2000, M100.3000, M300.2000, M300.3000, M100.2000, M100.4001 #### [facility] Laboratory [address] [place], [place], [address] Bilirubin [Mass/Vol] 0.39 mg/dL Normal 0.00-1.30 [facility] Comment on above: Order Comment: Order Date: 02/10/25Order Info: 0786-1 - CMPOrder Info: [id number] - MG Performed By: #### M 600.2200, M600.2000, M100.3000, M300.2000, M300.3000, M100.2000, M100.4001 #### [facility] [address] [place], [place], [address] BUN/CRE 26.9 RATIO High 10-20 [facility] Comment on above: Order Comment: Order Date: 02/10/25Order Info: 0786-1 - CMPOrder Info: [id number] - MG Performed By: #### M 600.2200, M600.2000, M100.3000, M300.2000, M300.3000, M100.2000, M100.4001 #### [facility] [address] [place], [place], [address] Calcium [Mass/Vol] 9.8 mg/dL Normal 7.6-11.0 [facility] Comment on above: Order Comment: Order Date: 02/10/25Order Info: 0786-1 - CMPOrder Info: [id number] - MG Performed By: #### M 600.2200, M600.2000, M100.3000, M300.2000, M300.3000, M100.2000, M100.4001 #### [facility] [address] [place], [place], [address] Chloride [Moles/Vol] 96 mmol/L Low 98-108 [facility] Comment on above: Order Comment: Order Date: 02/10/25Order Info: 0786-1 - CMPOrder Info: [id number] - MG Performed By: #### M 600.2200, M600.2000, M100.3000, M300.2000, M300.3000, M100.2000, M100.4001 #### [facility] [address] [place], [place], [address] CO2 [Moles/Vol] 29.4 mmol/L Normal 21.0-32.0 [facility] Comment on above: Order Comment: Order Date: 02/10/25Order Info: 0786-1 - CMPOrder Info: [id number] - MG Performed By: #### M 600.2200, M600.2000, M100.3000, M300.2000, M300.3000, M100.2000, M100.4001 #### [facility] [address] [place], [address] Creatinine [Mass/Vol] 0.99 mg/dL Normal 0.70-1.20 [facility] Comment on above: Order Comment: Order Date: 02/10/25Order Info: 0786-1 - CMPOrder Info: [id number] - MG Performed By: #### M 600.2200, M600.2000, M100.3000, M300.2000, M300.3000, M100.2000, M100.4001 #### [facility] [address] [place], [place], [id number] GAP 14 Normal 5-15 [facility] Comment on above: Order Comment: Order Date: 02/10/25Order Info: 0786-1 - CMPOrder Info: [id number] - MG Performed By: #### M 600.2200, M600.2000, M100.3000, M300.2000, M300.3000, M100.2000, M100.4001 #### [facility] [address] [place], [place], [address] GFR/1.73 sq M.predicted among non-blacks MDRD (S/P/Bld) [Vol rate/Area] 59 mL/min/{1.73_m2} Low >60 [facility] Comment on above: Order Comment: Order Date: 02/10/25Order Info: [id number] - CMPOrder Info: [id number] - MG Result Comment: mL/m in/1.73m2 CKD-EPI Creatinine Equation (2020) Performed By: #### M 600.2200, M600.2000, M100.3000, M300.2000, M300.3000, M100.2000, M100.4001 #### [facility] [address] [place], [address] Globulin (S) [Mass/Vol] 3.1 g/dL Normal 2.2-4.2 [facility] Comment on above: Order Comment: Order Date: 02/10/25Order Info: 0786-1 - CMPOrder Info: [id number] - MG Performed By: #### M 600.2200, M600.2000, M100.3000, M300.2000, M300.3000, M100.2000, M100.4001 #### [facility] [address] [place], [place], [address] Glucose [Mass/Vol] 101 mg/dL High 70-99 [facility] Comment on above: Order Comment: Order Date: 02/10/25Order Info: 0786-1 - CMPOrder Info: [id number] - MG Performed By: #### M 600.2200, M600.2000, M100.3000, M300.2000, M300.3000, M100.2000, M100.4001 #### [facility] [address] [place], [place], [address] Potassium [Moles/Vol] 4.4 mmol/L Normal 3.3-5.1 [facility] Comment on above: Order Comment: Order Date: 02/10/25Order Info: 0786-1 - CMPOrder Info: [id number] - MG Performed By: #### M 600.2200, M600.2000, M100.3000, M300.2000, M300.3000, M100.2000, M100.4001 #### [facility] [address] [place], [place], [address] Sodium [Moles/Vol] 140 mmol/L Normal 133-145 [facility] Comment on above: Order Comment: Order Date: 02/10/25Order Info: 0786-1 - CMPOrder Info: [id number] - MG Performed By: #### M 600.2200, M600.2000, M100.3000, M300.2000, M300.3000, M100.2000, M100.4001 #### [facility] [address] [place], [place], [address] T PROT 7.0 g/dL Normal 5.9-8.4 [facility] Comment on above: Order Comment: Order Date: 02/10/25Order Info: 0786-1 - CMPOrder Info: [id number] - MG Performed By: #### M 600.2200, M600.2000, M100.3000, M300.2000, M300.3000, M100.2000, M100.4001 #### [facility] [address] [place], [place], [id number] Urea nitrogen [Mass/Vol] 27 mg/dL High 4-19 [facility] Comment on above: Order Comment: Order Date: 02/10/25Order Info: 0786-1 - CMPOrder Info: - MG Performed By: #### M 600.2200, M600.2000, M100.3000, M300.2000, M300.3000, M100.2000, M100.4001 #### [facility] [address] [place], [place], [address] Eosinophil percentageOrdered By: Hernando Grimes on 02-10-2025 Eosinophils/100 WBC (Bld) 2.4 % 0-5 [facility] Erythrocyte distribution wid th ratioOrdered By: Hernando Grimes on 02-10-2025 Erythrocyte distribution width (RBC) [Ratio] 13.6 % 11.6-14.6 [facility] Erythrocyte distribution wid th standard deviationOrdered By: Hernando Grimes on 02-10-2025 Erythrocyte distribution width (RBC) [Ratio] 45.9 fl High 35.1-43.9 [facility] Glomerular filtration rate ( GFR) estimation/1.73 sq m using serum, plasma, or whole bOrdered By: Hernando Grimes on 02-10-2025 GFR/1.73 sq M.predicted among non-blacks MDRD (S/P/Bld) [Vol rate/Area] 59 mL/min/{1.73_m2} Low >60 [facility] Comment on above: mL/min/1.73m2 CKD-EP I Creatinine Equation (2020) Hematocrit Auto (Bld) [Volum e fraction]Ordered By: Hernando Grimes on 02-10-2025 Hematocrit (Bld) [Volume fraction] 43.3 % 37-47 [facility] Hemoglobin measurementOrdere d By: Hernando Grimes on 02-10-2025 Hemoglobin (Bld) [Mass/Vol] 13.7 g/dL 12.0-15.0 [facility] Immature granulocytes/100 WB C Auto (Bld)Ordered By: Hernando Grimes on 02-10-2025 Immature granulocytes/100 WBC (Bld) 0.400 % 0.0-0.9 [facility] Comment on above: IG% - Immature Granu locytes (promyelocytes, myelocytes and metamyelocytes) > 1% indicates that a LEFT SHIFT is Present. Laboratory - Chemistry and C hemistry - challengeOrdered By: Hernando Grimes on 02-10-2025 AST [Catalytic activity/Vol] 36 U/L High <32 [facility] MCV (mean corpuscular volume ) determinationOrdered By: Hernando Grimes on 02-10-2025 MCV (RBC) [Entitic vol] 92.1 fL 81-99 [facility] Magnesiumon 02-10-2025 Magnesium [Mass/Vol] 1.7 mg/dL Normal 1.5-2.2 [facility] Comment on above: Order Comment: Order Date: 02/10/25Order Info: [id number] - CMPOrder Info: [id number] - MG Performed By: #### M 600.2200, M600.2000, M100.3000, M300.2000, M300.3000, M100.2000, M100.4001 #### [facility] [address] [place], [place], [id number] Magnesium measurement (mass/ volume)Ordered By: Hernando Grimes on 08-11-2025 Magnesium (Unsp spec) [Mass/Vol] 1.7 mg/dL 1.5-2.2 [facility] Mean corpuscular hemoglobin (MCH) determinationOrdered By: Hernanod Grimes on 02-10-2025 MCH (RBC) [Entitic mass] 29.1 pg 27.0-32.0 [facility] Mean corpuscular hemoglobin concentration (MCHC) determinationOrdered By: Hernando Grimes on 02-10-2025 MCHC (RBC) [Mass/Vol] 31.6 g/dL Low 32-36 [facility] Mean platelet volume determi nationOrdered By: Hernando Grimes on 02-10-2025 Platelet mean volume (Bld) [Entitic vol] 10.8 fL 6.2-12.0 [facility] Monocyte percentageOrdered B y: Hernando Grimes on 02-10-2025 Monocytes/100 WBC (Bld) 7.3 % 0-10 [facility] Natriuretic peptide.B prohor mac N-Terminal [Mass/volume] in Serum or PlasmaOrdered By: Hernando Grimes on 02-10-2025 Natriuretic peptide.B prohormone N-Terminal [Mass/Vol] 1101 pg/mL <1800 [facility] Comment on above: Heart Failure Unlike ly: < 300 pg/mLHeart Failure Likely< 50 Years: > 450 pg/mL50-75 Years: > 900 pg/mL>75 Years: > 1800 pg/mL Neutrophil percentageOrdered By: Hernando Grimes on 02-10-2025 Neutrophils/100 WBC (Bld) 74.2 % High 47-70 [facility] Nucleated red blood cell per centageOrdered By: Hernando Grimes on 02-10-2025 Nucleated RBC/100 WBC (Bld) [Ratio] 0 % 0-5 [facility] Platelet countOrdered By: Blas Grimes on 02-10-2025 Platelets (Bld) [#/Vol] 166 10*3/uL 150-450 [facility] Potassium measurement (mass/ volume)Ordered By: Hernando Grimes on 02-10-2025 Potassium (Unsp spec) [Mass/Vol] 4.4 mmol/L 3.3-5.1 [facility] Pro- Brain NATRIURETIC PEPTI Rita 02-10-2025 Natriuretic peptide B (Bld) [Mass/Vol] 1101 pg/mL Normal <=1800 [facility] Comment on above: Order Comment: Order Date: 02/10/25Order Info: [id number] - CMPOrder Info: [id number] - MG Result Comment: Hear t Failure Unlikely: < 300 pg/mL Heart Failure Likely < 50 Years: > 450 pg/mL 50-75 Years: > 900 pg/mL >75 Years: > 1800 pg/mL Performed By: #### M 600.2200, M600.2000, M100.3000, M300.2000, M300.3000, M100.2000, M100.4001 #### [facility] [address] [place], [place], [address] RBC Auto (Bld) [#/Vol]Ordere d By: Hernando Grimes on 02-10-2025 RBC (Bld) [#/Vol] 4.70 10*6/uL 4.2-5.4 [facility] Serum creatinine measurement (mass/volume)Ordered By: Hernando Grimes on 02-10-2025 Creatinine [Mass/Vol] 0.99 mg/dL 0.70-1.20 [facility] Serum globulin measurementOr dered By: Hernando Grimes on 02-10-2025 Globulin (S) [Mass/Vol] 3.1 g/dL 2.2-4.2 [facility] Serum glucose measurement (m ass/volume)Ordered By: Hernando Grimes on 02-10-2025 Glucose [Mass/Vol] 101 mg/dL High 70-99 [facility] Serum or plasma alanine gao otransferase (ALT) measurementOrdered By: Hernando Grimes on 02-10-2025 ALT [Catalytic activity/Vol] 27 U/L <35 [facility] Serum or plasma albumin lisa urement (mass/volume)Ordered By: Hernando Grimes on 02-10-2025 Albumin [Mass/Vol] 3.9 g/dL 3.4-4.8 [facility] Serum or plasma albumin/glob ulin mass ratioOrdered By: Hernando Grimes on 02-10-2025 Albumin/Globulin [Mass ratio] 1.3 {ratio} 0.9-2.4 [facility] Serum or plasma alkaline bee sphatase measurementOrdered By: Hernando Grimes on 02-10-2025 ALP [Catalytic activity/Vol] 147 U/L High 35-104 [facility] Serum or plasma calcium lisa urement (mass/volume)Ordered By: Hernando Grimes on 02-10-2025 Calcium [Mass/Vol] 9.8 mg/dL 7.6-11.0 [facility] Serum or plasma urea nitroge n measurement (mass/volume)Ordered By: Hernando Grimes on 02-10-2025 Urea nitrogen [Mass/Vol] 27 mg/dL High 4-19 [facility] Sodium levelOrdered By: Hernando Grimes on 02-10-2025 Sodium [Moles/Vol] 140 mmol/L 133-145 [facility] Total proteinOrdered By: Esmer Grimes on 02-10-2025 Protein [Mass/Vol] 7.0 g/dL 5.9-8.4 [facility] White blood cell (WBC) count Ordered By: Hernando Grimes on 02-10-2025 WBC (Bld) [#/Vol] 9.9 10*3/uL 4.4-11.0 [facility] [facility] Acid Fast Bacillus Cultureon 12-06-2024 [facility] Comments: Left Glenosphere Membrane - collected in [place] Is this test to exclude patient from TB Isolation? N POSITIVE ABNORMAL ACID FAST BACILLI HAVE BEEN DETECTED IN CULTURE AT 6 WEEKS. FURTHER IDENTIFICATION TO FOLLOW Mycobacterium Spec Cult UNABLE TO IDENTIFY BY PCR. Mycobacterium Spec Cult ORGANISM ID BY MALDI TEST NOT PERFORMED. INADEQUATE GROWTH OF ORGANISM ON CULTURE OR TESTING MEDIUM. TESTING PERFORMED AT [facility]. ORIGINAL REPORT ON FILE IN LAB CONTAINS ADDITIONAL TEST SITE INFORMATION. RESULTS CALLED TO SHABNAM (CLINICAL DESK) 11/06/24 1102 Kaylee Morales. REPORT READ BACK BY SAME. Culture, Acid Fast A GROWTH OF ACID-FAST BACILLI A Normal [facility] Comment on above: Performed By: #### M 600.2200, M600.2000, M100.3000, M300.2000, M300.3000, M100.2000, M100.4001 #### [facility] [address] [place], [place], [id number] Acid Fast Bacillus Smear/Flu oron 11-06-2024 [facility] Comments: Left Glenosphere Membrane - collected in [place] Is this test to exclude patient from TB Isolation? N TESTING PERFORMED AT [facility]. ORIGINAL REPORT ON FILE IN LAB CONTAINS ADDITIONAL TEST SITE INFORMATION. Smear, Acid Fast Tissue Grinding Smear: Negative Normal [facility] Comment on above: Performed By: #### M 600.2200, M600.2000, M100.3000, M300.2000, M300.3000, M100.2000, M100.4001 #### [facility] [address] [place], [place], [id number] Culture, Fungus 8482on 11-06 [facility] Comments: Left Glenosphere Membrane - collected in [place] Is this test to exclude patient from TB Isolation? N TESTING PERFORMED AT [facility]. ORIGINAL REPORT ON FILE IN LAB CONTAINS ADDITIONAL TEST SITE INFORMATION. CUF No yeast or mold isolated after 4 weeks. [facility] Comment on above: Performed By: #### M 600.2200, M600.2000, M100.3000, M300.2000, M300.3000, M100.2000, M100.4001 #### [facility] [address] [place], [place], [address] Fungus Stain 8136on 11-07-19 [facility] Comments: Left Glenosphere Membrane - collected in [place] Is this test to exclude patient from TB Isolation? N TESTING PERFORMED AT [facility]. ORIGINAL REPORT ON FILE IN LAB CONTAINS ADDITIONAL TEST SITE INFORMATION. Fungus Stain No fungus observed. Normal [facility] Comment on above: Performed By: #### M 600.2200, M600.2000, M100.3000, M300.2000, M300.3000, M100.2000, M100.4001 #### [facility] [address] [place], [place], [address] Basic Metabolic Profile (BMP )on 10-31-2024 BUN Normal 4-19 [facility] Comment on above: Result Comment: Karen villavicencio via OM: Order cancelled - Patient discharged Performed By: #### M 600.2200, M600.2000, M100.3000, M300.2000, M300.3000, M100.2000, M100.4001 #### [facility] [address] [place], [address] BUN/CRE Normal 10-20 [facility] Comment on above: Result Comment: Canc elled via OM: Order cancelled - Patient discharged Performed By: #### M 600.2200, M600.2000, M100.3000, M300.2000, M300.3000, M100.2000, M100.4001 #### [facility] [address] [place], [address] Calcium Normal 7.6-11.0 [facility] Comment on above: Result Comment: Canc elled via OM: Order cancelled - Patient discharged Performed By: #### M 600.2200, M600.2000, M100.3000, M300.2000, M300.3000, M100.2000, M100.4001 #### [facility] [address] [place], [address] CL Normal 98-108 [facility] Comment on above: Result Comment: Canc elled via OM: Order cancelled - Patient discharged Performed By: #### M 600.2200, M600.2000, M100.3000, M300.2000, M300.3000, M100.2000, M100.4001 #### [facility] [address] [place], [address] CO2 Normal 21.0-32.0 [facility] Comment on above: Result Comment: Canc elled via OM: Order cancelled - Patient discharged Performed By: #### M 600.2200, M600.2000, M100.3000, M300.2000, M300.3000, M100.2000, M100.4001 #### [facility] [address] [place], [address] CREAT,SERUM Normal 0.70-1.20 [facility] Comment on above: Result Comment: Canc elled via OM: Order cancelled - Patient discharged Performed By: #### M 600.2200, M600.2000, M100.3000, M300.2000, M300.3000, M100.2000, M100.4001 #### [facility] [address] [place], [address] eGFR Normal >60 [facility] Comment on above: Result Comment: Canc elled via OM: Order cancelled - Patient discharged Performed By: #### M 600.2200, M600.2000, M100.3000, M300.2000, M300.3000, M100.2000, M100.4001 #### [facility] [address] [place], [address] GAP Normal 5-15 [facility] Comment on above: Result Comment: Canc elled via OM: Order cancelled - Patient discharged Performed By: #### M 600.2200, M600.2000, M100.3000, M300.2000, M300.3000, M100.2000, M100.4001 #### [facility] [address] [place], [address] GLU Normal 70-99 [facility] Comment on above: Result Comment: Canc elled via OM: Order cancelled - Patient discharged Performed By: #### M 600.2200, M600.2000, M100.3000, M300.2000, M300.3000, M100.2000, M100.4001 #### [facility] [address] [place], [address] Potassium Normal 3.3-5.1 [facility] Comment on above: Result Comment: Canc elled via OM: Order cancelled - Patient discharged Performed By: #### M 600.2200, M600.2000, M100.3000, M300.2000, M300.3000, M100.2000, M100.4001 #### [facility] [address] [place], [address] Basic Metabolic Profile (BMP) Normal 133-145 [facility] Comment on above: Result Comment: Canc elled via OM: Order cancelled - Patient discharged Performed By: #### M 600.2200, M600.2000, M100.3000, M300.2000, M300.3000, M100.2000, M100.4001 #### [facility] [address] [place], [address] CBC W/Diff, Automatedon 05-0 Absolute Neut Normal 2.0-7.7 [facility] Comment on above: Result Comment: Canc elled via OM: Order cancelled - Patient discharged Performed By: #### M 600.2200, M600.2000, M100.3000, M300.2000, M300.3000, M100.2000, M100.4001 #### [facility] [address] [place], [address] HCT Normal 37-47 [facility] Comment on above: Result Comment: Canc elled via OM: Order cancelled - Patient discharged Performed By: #### M 600.2200, M600.2000, M100.3000, M300.2000, M300.3000, M100.2000, M100.4001 #### [facility] [address] [place], [address] HGB Normal 12.0-15.0 [facility] Comment on above: Result Comment: Canc elled via OM: Order cancelled - Patient discharged Performed By: #### M 600.2200, M600.2000, M100.3000, M300.2000, M300.3000, M100.2000, M100.4001 #### [facility] [address] [place], [address] MCH Normal 27.0-32.0 [facility] Comment on above: Result Comment: Canc elled via OM: Order cancelled - Patient discharged Performed By: #### M 600.2200, M600.2000, M100.3000, M300.2000, M300.3000, M100.2000, M100.4001 #### [facility] [address] [place], [address] MCHC Normal 32-36 [facility] Comment on above: Result Comment: Canc elled via OM: Order cancelled - Patient discharged Performed By: #### M 600.2200, M600.2000, M100.3000, M300.2000, M300.3000, M100.2000, M100.4001 #### [facility] [address] [place], [address] MCV Normal 81-99 [facility] Comment on above: Result Comment: Canc elled via OM: Order cancelled - Patient discharged Performed By: #### M 600.2200, M600.2000, M100.3000, M300.2000, M300.3000, M100.2000, M100.4001 #### [facility] [address] [place], [address] NEUT% Normal 47-70 [facility] Comment on above: Result Comment: Canc elled via OM: Order cancelled - Patient discharged Performed By: #### M 600.2200, M600.2000, M100.3000, M300.2000, M300.3000, M100.2000, M100.4001 #### [facility] [address] [place], [address] PLT Normal 150-450 [facility] Comment on above: Result Comment: Canc elled via OM: Order cancelled - Patient discharged Performed By: #### M 600.2200, M600.2000, M100.3000, M300.2000, M300.3000, M100.2000, M100.4001 #### [facility] [address] [place], [address] RBC Normal 4.2-5.4 [facility] Comment on above: Result Comment: Canc elled via OM: Order cancelled - Patient discharged Performed By: #### M 600.2200, M600.2000, M100.3000, M300.2000, M300.3000, M100.2000, M100.4001 #### [facility] [address] [place], [address] RDW CV Normal 11.6-14.6 [facility] Comment on above: Result Comment: Canc elled via OM: Order cancelled - Patient discharged Performed By: #### M 600.2200, M600.2000, M100.3000, M300.2000, M300.3000, M100.2000, M100.4001 #### [facility] [address] [place], [address] RDW SD Normal 35.1-43.9 [facility] Comment on above: Result Comment: Canc elled via OM: Order cancelled - Patient discharged Performed By: #### M 600.2200, M600.2000, M100.3000, M300.2000, M300.3000, M100.2000, M100.4001 #### [facility] [address] [place], [address] WBC Normal 4.4-11.0 [facility] Comment on above: Result Comment: Canc elled via OM: Order cancelled - Patient discharged Performed By: #### M 600.2200, M600.2000, M100.3000, M300.2000, M300.3000, M100.2000, M100.4001 #### [facility] [address] [place], [place], [address] Acid Fast Bacillus Cultureon 10-30-2024 [facility] Comments: Left Humeral Membrane - collected [place] Is this test to exclude patient from TB Isolation? N TESTING PERFORMED AT [facility]. ORIGINAL REPORT ON FILE IN LAB CONTAINS ADDITIONAL TEST SITE INFORMATION. Culture, Acid Fast NO ACID-FAST BACILLI ISOLATED AFTER 6 WEEKS. [facility] Comment on above: Performed By: #### M 600.2200, M600.2000, M100.3000, M300.2000, M300.3000, M100.2000, M100.4001 #### [facility] [address] [place], [place], [address] [facility] Comments: Left Posterior Synovium - collected in [place] Is this test to exclude patient from TB Isolation? N TESTING PERFORMED AT [facility]. ORIGINAL REPORT ON FILE IN LAB CONTAINS ADDITIONAL TEST SITE INFORMATION. Culture, Acid Fast NO ACID-FAST BACILLI ISOLATED AFTER 6 WEEKS. [facility] Comment on above: Performed By: #### M 600.2200, M600.2000, M100.3000, M300.2000, M300.3000, M100.2000, M100.4001 #### [facility] [address] [place], [place], [address] Acid Fast Bacillus Smear/Flu oron 10-30-2024 [facility] Comments: Left Humeral Membrane - collected in [place] Is this test to exclude patient from TB Isolation? N TESTING PERFORMED AT [facility]. ORIGINAL REPORT ON FILE IN LAB CONTAINS ADDITIONAL TEST SITE INFORMATION. Smear, Acid Fast Tissue Grinding Smear: Negative Normal [facility] Comment on above: Performed By: #### M 600.2200, M600.2000, M100.3000, M300.2000, M300.3000, M100.2000, M100.4001 #### [facility] [address] [place] [place], [address] [facility] Comments: Left Posterior Synovium - collected in [place] Is this test to exclude patient from TB Isolation? N TESTING PERFORMED AT [facility]. ORIGINAL REPORT ON FILE IN LAB CONTAINS ADDITIONAL TEST SITE INFORMATION. Smear, Acid Fast Tissue Grinding Smear: Negative Normal [facility] Comment on above: Performed By: #### M 600.2200, M600.2000, M100.3000, M300.2000, M300.3000, M100.2000, M100.4001 #### [facility] [address] [place], [place], [address] Culture, Fungus 8482on 10-30 [facility] Comments: Left Humeral Membrane - collected in [place] Is this test to exclude patient from TB Isolation? N TESTING PERFORMED AT [facility]. ORIGINAL REPORT ON FILE IN LAB CONTAINS ADDITIONAL TEST SITE INFORMATION. CUF No yeast or mold isolated after 4 weeks. [facility] Comment on above: Performed By: #### M 600.2200, M600.2000, M100.3000, M300.2000, M300.3000, M100.2000, M100.4001 #### [facility] [address] [place] [place], [address] [facility]F Comments: Left Posterior Synovium - collected in [place] Is this test to exclude patient from TB Isolation? N TESTING PERFORMED AT [facility]. ORIGINAL REPORT ON FILE IN LAB CONTAINS ADDITIONAL TEST SITE INFORMATION. CUF No yeast or mold isolated after 4 weeks. [facility] Comment on above: Performed By: #### M 600.2200, M600.2000, M100.3000, M300.2000, M300.3000, M100.2000, M100.4001 #### [facility] [address] [place], [address] Fungus Stain 8136on 10-31-19 [facility] Comments: Left Humeral Membrane - collected in [place] Is this test to exclude patient from TB Isolation? N TESTING PERFORMED AT [facility]. ORIGINAL REPORT ON FILE IN LAB CONTAINS ADDITIONAL TEST SITE INFORMATION. Fungus Stain No fungus observed. Normal [facility] Comment on above: Performed By: #### M 600.2200, M600.2000, M100.3000, M300.2000, M300.3000, M100.2000, M100.4001 #### [facility] [address] [place] [place], [address] [facility] Comments: Left Posterior Synovium - collected in [place] Is this test to exclude patient from TB Isolation? N TESTING PERFORMED AT [facility]. ORIGINAL REPORT ON FILE IN LAB CONTAINS ADDITIONAL TEST SITE INFORMATION. Fungus Stain No fungus observed. Normal [facility] Comment on above: Performed By: #### M 600.2200, M600.2000, M100.3000, M300.2000, M300.3000, M100.2000, M100.4001 #### [facility] [address] [place], [place], [address] Basic Metabolic Profile (BMP )on 10-24-2024 BUN Normal 4-19 [facility] Comment on above: Result Comment: Karen villavicencio via OM: Order cancelled - Patient discharged Performed By: #### M 600.2200, M600.2000, M100.3000, M300.2000, M300.3000, M100.2000, M100.4001 #### [facility] [address] [place], [address] BUN/CRE Normal 10-20 [facility] Comment on above: Result Comment: Canc elled via OM: Order cancelled - Patient discharged Performed By: #### M 600.2200, M600.2000, M100.3000, M300.2000, M300.3000, M100.2000, M100.4001 #### [facility] [address] [place], [address] Calcium Normal 7.6-11.0 [facility] Comment on above: Result Comment: Canc elled via OM: Order cancelled - Patient discharged Performed By: #### M 600.2200, M600.2000, M100.3000, M300.2000, M300.3000, M100.2000, M100.4001 #### [facility] [address] [place], [address] CL Normal 98-108 [facility] Comment on above: Result Comment: Canc elled via OM: Order cancelled - Patient discharged Performed By: #### M 600.2200, M600.2000, M100.3000, M300.2000, M300.3000, M100.2000, M100.4001 #### [facility] [address] [place], [address] CO2 Normal 21.0-32.0 [facility] Comment on above: Result Comment: Canc elled via OM: Order cancelled - Patient discharged Performed By: #### M 600.2200, M600.2000, M100.3000, M300.2000, M300.3000, M100.2000, M100.4001 #### [facility] [address] [place], [address] CREAT,SERUM Normal 0.70-1.20 [facility] Comment on above: Result Comment: Canc elled via OM: Order cancelled - Patient discharged Performed By: #### M 600.2200, M600.2000, M100.3000, M300.2000, M300.3000, M100.2000, M100.4001 #### [facility] [address] [place], [address] eGFR Normal >60 [facility] Comment on above: Result Comment: Canc elled via OM: Order cancelled - Patient discharged Performed By: #### M 600.2200, M600.2000, M100.3000, M300.2000, M300.3000, M100.2000, M100.4001 #### [facility] [address] [place], [address] GAP Normal 5-15 [facility] Comment on above: Result Comment: Canc elled via OM: Order cancelled - Patient discharged Performed By: #### M 600.2200, M600.2000, M100.3000, M300.2000, M300.3000, M100.2000, M100.4001 #### [facility] [address] [place], [address] GLU Normal 70-99 [facility] Comment on above: Result Comment: Canc elled via OM: Order cancelled - Patient discharged Performed By: #### M 600.2200, M600.2000, M100.3000, M300.2000, M300.3000, M100.2000, M100.4001 #### [facility] [address] [place], [address] Potassium Normal 3.3-5.1 [facility] Comment on above: Result Comment: Canc elled via OM: Order cancelled - Patient discharged Performed By: #### M 600.2200, M600.2000, M100.3000, M300.2000, M300.3000, M100.2000, M100.4001 #### [facility] [address] [place], [address] Basic Metabolic Profile (BMP) Normal 133-145 [facility] Comment on above: Result Comment: Canc elled via OM: Order cancelled - Patient discharged Performed By: #### M 600.2200, M600.2000, M100.3000, M300.2000, M300.3000, M100.2000, M100.4001 #### [facility] [address] [place], [address] CBC W/Diff, Automatedon 10-02 Absolute Neut Normal 2.0-7.7 [facility] Comment on above: Result Comment: Canc elled via OM: Order cancelled - Patient discharged Performed By: #### M 600.2200, M600.2000, M100.3000, M300.2000, M300.3000, M100.2000, M100.4001 #### [facility] [address] [place], [address] HCT Normal 37-47 [facility] Comment on above: Result Comment: Canc elled via OM: Order cancelled - Patient discharged Performed By: #### M 600.2200, M600.2000, M100.3000, M300.2000, M300.3000, M100.2000, M100.4001 #### [facility] [address] [place], [address] HGB Normal 12.0-15.0 [facility] Comment on above: Result Comment: Canc elled via OM: Order cancelled - Patient discharged Performed By: #### M 600.2200, M600.2000, M100.3000, M300.2000, M300.3000, M100.2000, M100.4001 #### [facility] [address] [place], [address] MCH Normal 27.0-32.0 [facility] Comment on above: Result Comment: Canc elled via OM: Order cancelled - Patient discharged Performed By: #### M 600.2200, M600.2000, M100.3000, M300.2000, M300.3000, M100.2000, M100.4001 #### [facility] [address] [place], [address] MCHC Normal 32-36 [facility] Comment on above: Result Comment: Canc elled via OM: Order cancelled - Patient discharged Performed By: #### M 600.2200, M600.2000, M100.3000, M300.2000, M300.3000, M100.2000, M100.4001 #### [facility] [address] [place], [address] MCV Normal 81-99 [facility] Comment on above: Result Comment: Canc elled via OM: Order cancelled - Patient discharged Performed By: #### M 600.2200, M600.2000, M100.3000, M300.2000, M300.3000, M100.2000, M100.4001 #### [facility] [address] [place], [address] NEUT% Normal 47-70 [facility] Comment on above: Result Comment: Canc elled via OM: Order cancelled - Patient discharged Performed By: #### M 600.2200, M600.2000, M100.3000, M300.2000, M300.3000, M100.2000, M100.4001 #### [facility] [address] [place], [address] PLT Normal 150-450 [facility] Comment on above: Result Comment: Canc elled via OM: Order cancelled - Patient discharged Performed By: #### M 600.2200, M600.2000, M100.3000, M300.2000, M300.3000, M100.2000, M100.4001 #### [facility] [address] [place], [address] RBC Normal 4.2-5.4 [facility] Comment on above: Result Comment: Canc elled via OM: Order cancelled - Patient discharged Performed By: #### M 600.2200, M600.2000, M100.3000, M300.2000, M300.3000, M100.2000, M100.4001 #### [facility] [address] [facility] [id number] [phone] Normal 11.6-14.6 [facility] Comment on above: Result Comment: Canc elled via OM: Order cancelled - Patient discharged Performed By: #### M 600.2200, M600.2000, M100.3000, M300.2000, M300.3000, M100.2000, M100.4001 #### [facility] [address] [place], [place], [id number] ([address] RDW SD Normal 35.1-43.9 [facility] Comment on above: Result Comment: Canc elled via OM: Order cancelled - Patient discharged Performed By: #### M 600.2200, M600.2000, M100.3000, M300.2000, M300.3000, M100.2000, M100.4001 #### [facility] [address] [place], [place], [id number] WBC Normal 4.4-11.0 [facility] Comment on above: Result Comment: Canc elled via OM: Order cancelled - Patient discharged Performed By: #### M 600.2200, M600.2000, M100.3000, M300.2000, M300.3000, M100.2000, M100.4001 #### [facility] [address] [place], [address] Basic Metabolic Profile (BMP )on 10-17-2024 BUN Normal 4-19 [facility] Comment on above: Result Comment: Canc elled via OM: Order cancelled - Patient discharged Performed By: #### M 600.2200, M600.2000, M100.3000, M300.2000, M300.3000, M100.2000, M100.4001 #### [facility] [address] [place], [place], [id number] BUN/CRE Normal 10-20 [facility] Comment on above: Result Comment: Canc elled via OM: Order cancelled - Patient discharged Performed By: #### M 600.2200, M600.2000, M100.3000, M300.2000, M300.3000, M100.2000, M100.4001 #### [facility] [address] [place], [address] Calcium Normal 7.6-11.0 [facility] Comment on above: Result Comment: Canc elled via OM: Order cancelled - Patient discharged Performed By: #### M 600.2200, M600.2000, M100.3000, M300.2000, M300.3000, M100.2000, M100.4001 #### [facility] [address] [place], [address] CL Normal 98-108 [facility] Comment on above: Result Comment: Canc elled via OM: Order cancelled - Patient discharged Performed By: #### M 600.2200, M600.2000, M100.3000, M300.2000, M300.3000, M100.2000, M100.4001 #### [facility] [address] [place], [address] CO2 Normal 21.0-32.0 [facility] Comment on above: Result Comment: Canc elled via OM: Order cancelled - Patient discharged Performed By: #### M 600.2200, M600.2000, M100.3000, M300.2000, M300.3000, M100.2000, M100.4001 #### [facility] [address] [place], [address] CREAT,SERUM Normal 0.70-1.20 [facility] Comment on above: Result Comment: Canc elled via OM: Order cancelled - Patient discharged Performed By: #### M 600.2200, M600.2000, M100.3000, M300.2000, M300.3000, M100.2000, M100.4001 #### [facility] [address] [place], [address] eGFR Normal >60 [facility] Comment on above: Result Comment: Canc elled via OM: Order cancelled - Patient discharged Performed By: #### M 600.2200, M600.2000, M100.3000, M300.2000, M300.3000, M100.2000, M100.4001 #### [facility] [address] [place], [address] GAP Normal 5-15 [facility] Comment on above: Result Comment: Canc elled via OM: Order cancelled - Patient discharged Performed By: #### M 600.2200, M600.2000, M100.3000, M300.2000, M300.3000, M100.2000, M100.4001 #### [facility] [address] [place], [address] GLU Normal 70-99 [facility] Comment on above: Result Comment: Canc elled via OM: Order cancelled - Patient discharged Performed By: #### M 600.2200, M600.2000, M100.3000, M300.2000, M300.3000, M100.2000, M100.4001 #### [facility] [address] [place], [address] Potassium Normal 3.3-5.1 [facility] Comment on above: Result Comment: Canc elled via OM: Order cancelled - Patient discharged Performed By: #### M 600.2200, M600.2000, M100.3000, M300.2000, M300.3000, M100.2000, M100.4001 #### [facility] [address] [place], [address] Basic Metabolic Profile (BMP) Normal 133-145 [facility] Comment on above: Result Comment: Canc elled via OM: Order cancelled - Patient discharged Performed By: #### M 600.2200, M600.2000, M100.3000, M300.2000, M300.3000, M100.2000, M100.4001 #### [facility] [address] [place], [address] CBC W/Diff, Automatedon 04- Absolute Neut Normal 2.0-7.7 [facility] Comment on above: Result Comment: Canc elled via OM: Order cancelled - Patient discharged Performed By: #### M 600.2200, M600.2000, M100.3000, M300.2000, M300.3000, M100.2000, M100.4001 #### [facility] [address] [place], [place], [address] (137) HCT Normal 37-47 [facility] Comment on above: Result Comment: Canc elled via OM: Order cancelled - Patient discharged Performed By: #### M 600.2200, M600.2000, M100.3000, M300.2000, M300.3000, M100.2000, M100.4001 #### [facility] [address] [place], [address] HGB Normal 12.0-15.0 [facility] Comment on above: Result Comment: Canc elled via OM: Order cancelled - Patient discharged Performed By: #### M 600.2200, M600.2000, M100.3000, M300.2000, M300.3000, M100.2000, M100.4001 #### [facility] [address] [place], [address] MCH Normal 27.0-32.0 [facility] Comment on above: Result Comment: Canc elled via OM: Order cancelled - Patient discharged Performed By: #### M 600.2200, M600.2000, M100.3000, M300.2000, M300.3000, M100.2000, M100.4001 #### [facility] [address] [place], [place], [address] (250) MCHC Normal 32-36 [facility] Comment on above: Result Comment: Canc elled via OM: Order cancelled - Patient discharged Performed By: #### M 600.2200, M600.2000, M100.3000, M300.2000, M300.3000, M100.2000, M100.4001 #### [facility] [address] [place], [address] MCV Normal 81-99 [facility] Comment on above: Result Comment: Canc elled via OM: Order cancelled - Patient discharged Performed By: #### M 600.2200, M600.2000, M100.3000, M300.2000, M300.3000, M100.2000, M100.4001 #### [facility] [address] [place], [address] NEUT% Normal 47-70 [facility] Comment on above: Result Comment: Canc elled via OM: Order cancelled - Patient discharged Performed By: #### M 600.2200, M600.2000, M100.3000, M300.2000, M300.3000, M100.2000, M100.4001 #### [facility] [address] [place], [address] PLT Normal 150-450 [facility] Comment on above: Result Comment: Canc elled via OM: Order cancelled - Patient discharged Performed By: #### M 600.2200, M600.2000, M100.3000, M300.2000, M300.3000, M100.2000, M100.4001 #### [facility] [address] [place], [address] RBC Normal 4.2-5.4 [facility] Comment on above: Result Comment: Canc elled via OM: Order cancelled - Patient discharged Performed By: #### M 600.2200, M600.2000, M100.3000, M300.2000, M300.3000, M100.2000, M100.4001 #### [facility] [address] [place], [address] RDW CV Normal 11.6-14.6 [facility] Comment on above: Result Comment: Canc elled via OM: Order cancelled - Patient discharged Performed By: #### M 600.2200, M600.2000, M100.3000, M300.2000, M300.3000, M100.2000, M100.4001 #### [facility] [address] [place], [address] RDW SD Normal 35.1-43.9 [facility] Comment on above: Result Comment: Canc elled via OM: Order cancelled - Patient discharged Performed By: #### M 600.2200, M600.2000, M100.3000, M300.2000, M300.3000, M100.2000, M100.4001 #### [facility] [address] [place], [address] WBC Normal 4.4-11.0 [facility] Comment on above: Result Comment: Canc elled via OM: Order cancelled - Patient discharged Performed By: #### M 600.2200, M600.2000, M100.3000, M300.2000, M300.3000, M100.2000, M100.4001 #### [facility] [address] [place], [address] Synovial Fluid RBC, WBC AND Diffon 10-14-2024 PATH COM/DDStocksFL Reviewed Normal [facility] Comment on above: Result Comment: SEE REPORT IN PATIENT'S EMR AMENDED REPORT 10/14/24 1405 PATH COM/SYFL previously reported as: May follow Performed By: #### M 600.2200, M600.2000, M100.3000, M300.2000, M300.3000, M100.2000, M100.4001 #### [facility] [address] [place], [address] Basic Metabolic Profile (BMP )on 10-10-2024 BUN Normal 4-19 [facility] Comment on above: Result Comment: Canc elled via OM: Order cancelled - Patient discharged Performed By: #### M 600.2200, M600.2000, M100.3000, M300.2000, M300.3000, M100.2000, M100.4001 #### [facility] [address] [place], [address] BUN/CRE Normal 10-20 [facility] Comment on above: Result Comment: Canc elled via OM: Order cancelled - Patient discharged Performed By: #### M 600.2200, M600.2000, M100.3000, M300.2000, M300.3000, M100.2000, M100.4001 #### [facility] [address] [place], [address] Calcium Normal 7.6-11.0 [facility] Comment on above: Result Comment: Canc elled via OM: Order cancelled - Patient discharged Performed By: #### M 600.2200, M600.2000, M100.3000, M300.2000, M300.3000, M100.2000, M100.4001 #### [facility] [address] [place], [address] CL Normal 98-108 [facility] Comment on above: Result Comment: Canc elled via OM: Order cancelled - Patient discharged Performed By: #### M 600.2200, M600.2000, M100.3000, M300.2000, M300.3000, M100.2000, M100.4001 #### [facility] [address] [place], [address] CO2 Normal 21.0-32.0 [facility] Comment on above: Result Comment: Canc elled via OM: Order cancelled - Patient discharged Performed By: #### M 600.2200, M600.2000, M100.3000, M300.2000, M300.3000, M100.2000, M100.4001 #### [facility] [address] [place], [address] CREAT,SERUM Normal 0.70-1.20 [facility] Comment on above: Result Comment: Canc elled via OM: Order cancelled - Patient discharged Performed By: #### M 600.2200, M600.2000, M100.3000, M300.2000, M300.3000, M100.2000, M100.4001 #### [facility] [address] [place], [address] eGFR Normal >60 [facility] Comment on above: Result Comment: Canc elled via OM: Order cancelled - Patient discharged Performed By: #### M 600.2200, M600.2000, M100.3000, M300.2000, M300.3000, M100.2000, M100.4001 #### [facility] [address] [place], [address] GAP Normal 5-15 [facility] Comment on above: Result Comment: Canc elled via OM: Order cancelled - Patient discharged Performed By: #### M 600.2200, M600.2000, M100.3000, M300.2000, M300.3000, M100.2000, M100.4001 #### [facility] [address] [place], [address] GLU Normal 70-99 [facility] Comment on above: Result Comment: Canc elled via OM: Order cancelled - Patient discharged Performed By: #### M 600.2200, M600.2000, M100.3000, M300.2000, M300.3000, M100.2000, M100.4001 #### [facility] [address] [place], [address] Potassium Normal 3.3-5.1 [facility] Comment on above: Result Comment: Canc elled via OM: Order cancelled - Patient discharged Performed By: #### M 600.2200, M600.2000, M100.3000, M300.2000, M300.3000, M100.2000, M100.4001 #### [facility] [address] [place], [address] Basic Metabolic Profile (BMP) Normal 133-145 [facility] Comment on above: Result Comment: Canc elled via OM: Order cancelled - Patient discharged Performed By: #### M 600.2200, M600.2000, M100.3000, M300.2000, M300.3000, M100.2000, M100.4001 #### [facility] [address] [place], [address] CBC W/Diff, Automatedon 04 Absolute Neut Normal 2.0-7.7 [facility] Comment on above: Result Comment: Canc elled via OM: Order cancelled - Patient discharged Performed By: #### M 600.2200, M600.2000, M100.3000, M300.2000, M300.3000, M100.2000, M100.4001 #### [facility] [address] [place], [place], [id number] (325) HCT Normal 37-47 [facility] Comment on above: Result Comment: Canc elled via OM: Order cancelled - Patient discharged Performed By: #### M 600.2200, M600.2000, M100.3000, M300.2000, M300.3000, M100.2000, M100.4001 #### [facility] [address] [place], [address] HGB Normal 12.0-15.0 [facility] Comment on above: Result Comment: Canc elled via OM: Order cancelled - Patient discharged Performed By: #### M 600.2200, M600.2000, M100.3000, M300.2000, M300.3000, M100.2000, M100.4001 #### [facility] [address] [place], [address] MCH Normal 27.0-32.0 [facility] Comment on above: Result Comment: Canc elled via OM: Order cancelled - Patient discharged Performed By: #### M 600.2200, M600.2000, M100.3000, M300.2000, M300.3000, M100.2000, M100.4001 #### [facility] [address] [place], [address] MCHC Normal 32-36 [facility] Comment on above: Result Comment: Canc elled via OM: Order cancelled - Patient discharged Performed By: #### M 600.2200, M600.2000, M100.3000, M300.2000, M300.3000, M100.2000, M100.4001 #### [facility] [address] [place], [address] MCV Normal 81-99 [facility] Comment on above: Result Comment: Canc elled via OM: Order cancelled - Patient discharged Performed By: #### M 600.2200, M600.2000, M100.3000, M300.2000, M300.3000, M100.2000, M100.4001 #### [facility] [address] [place], [address] NEUT% Normal 47-70 [facility] Comment on above: Result Comment: Canc elled via OM: Order cancelled - Patient discharged Performed By: #### M 600.2200, M600.2000, M100.3000, M300.2000, M300.3000, M100.2000, M100.4001 #### [facility] [address] [place], [address] PLT Normal 150-450 [facility] Comment on above: Result Comment: Canc elled via OM: Order cancelled - Patient discharged Performed By: #### M 600.2200, M600.2000, M100.3000, M300.2000, M300.3000, M100.2000, M100.4001 #### [facility] [address] [place], [address] RBC Normal 4.2-5.4 [facility] Comment on above: Result Comment: Canc elled via OM: Order cancelled - Patient discharged Performed By: #### M 600.2200, M600.2000, M100.3000, M300.2000, M300.3000, M100.2000, M100.4001 #### [facility] [address] [place], [address] RDW CV Normal 11.6-14.6 [facility] Comment on above: Result Comment: Canc elled via OM: Order cancelled - Patient discharged Performed By: #### M 600.2200, M600.2000, M100.3000, M300.2000, M300.3000, M100.2000, M100.4001 #### [facility] [address] [place], [address] RDW SD Normal 35.1-43.9 [facility] Comment on above: Result Comment: Canc elled via OM: Order cancelled - Patient discharged Performed By: #### M 600.2200, M600.2000, M100.3000, M300.2000, M300.3000, M100.2000, M100.4001 #### [facility] [address] [place], [place], [id number] ([address] WBC Normal 4.4-11.0 [facility] Comment on above: Result Comment: Canc elled via OM: Order cancelled - Patient discharged Performed By: #### M 600.2200, M600.2000, M100.3000, M300.2000, M300.3000, M100.2000, M100.4001 #### [facility] [address] [place], [place], [address] Vancomycin trough [Mass/Vol] Ordered By: Sixto Andrade on 10-06-2024 Vancomycin Level Trough 13.6 ug/mL 5.0-15.0 [facility] Comment on above: Recommended goal tro ugh ranges are generally 10-15 mcg/ml for less severe/complicated infections such as cellulitis or UTI and 15-20 mcg/ml for more severe/complicated infections such as bacteremia/sepsis, osteomyelitis, pneumonia or meningitis. Goal trough ranges should take into account indication, patient-specific factors and organism ESPERANZA.VANCOMYCIN STANDARED DRUG THERAPY TROUGH LEVEL: 5.0 - 15.0 mg/L VANCOMYCIN HIGH INTENSITY THERAPY TROUGH LEVEL: 15.0 - 20.0 mg/L High Intensity therapy recommended for serious lifethreatening infections include:- Hwqutzyhsb-Dozcbzffkhcg-Wtggvlyxk (Ventilator/Healtcare Associated)-Sepsis PLEASE CONTACT PHARMACY SERVICES (#[id number]) FOR INTERPRETATIONOF RESULTS. Vancomycin, Trough Levelon 0 10-06-2024 VANCO, TROUGH 13.6 ug/mL Normal 5.0-15.0 [facility] Comment on above: Order Comment: Comme nts: DRAW 30 MIN PRIOR TO [id number] Result Comment: Zackery mmended goal trough ranges are generally 10-15 mcg/ml for less severe/complicated infections such as cellulitis or UTI and 15-20 mcg/ml for more severe/complicated infections such as bacteremia/sepsis, osteomyelitis, pneumonia or meningitis. Goal trough ranges should take into account indication, patient-specific factors and organism ESPERANZA. VANCOMYCIN STANDARED DRUG THERAPY TROUGH LEVEL: 5.0 - 15.0 mg/L VANCOMYCIN HIGH INTENSITY THERAPY TROUGH LEVEL: 15.0 - 20.0 mg/L High Intensity therapy recommended for serious life threatening infections include: - Meningitis -Endocarditis -Pneumonia (Ventilator/Healtcare Associated) -Sepsis PLEASE CONTACT PHARMACY SERVICES (#[id number]) FOR INTERPRETATION OF RESULTS. Performed By: #### M 600.2200, M600.2000, M100.3000, M300.2000, M300.3000, M100.2000, M100.4001 #### [facility] [address] [place], [place] [address]all [address]ites[address]. [place], [place], [address] Absolute neutrophil countOrd ered By: Rodrigo Sanches on 10-03-2024 Neutrophils (Bld) [#/Vol] 3.0 10*3/uL 2.0-7.7 [facility] Anion gap in Serum or Plasma Ordered By: Rodrigo Sanches on 10-03-2024 Anion gap [Moles/Vol] 11 mmol/L 11-14 [facility] BUN/creatinine ratioOrdered By: Rodrigo Sanches on 10-03-2024 Urea nitrogen/Creatinine [Mass ratio] 24.6 mg/mg High - [facility] Basic Metabolic Profile (BMP )on 10-03-2024 BUN/CRE 24.6 RATIO High 10-20 [facility] Comment on above: Performed By: #### M 600.2200, M600.2000, M100.3000, M300.2000, M300.3000, M100.2000, M100.4001 #### [facility] [address] [place], [address] Calcium [Mass/Vol] 9.2 mg/dL Normal 7.6-11.0 [facility] Comment on above: Performed By: #### M 600.2200, M600.2000, M100.3000, M300.2000, M300.3000, M100.2000, M100.4001 #### [facility] [address] [place], [address] Chloride [Moles/Vol] 100 mmol/L Normal 98-108 [facility] Comment on above: Performed By: #### M 600.2200, M600.2000, M100.3000, M300.2000, M300.3000, M100.2000, M100.4001 #### [facility] [address] [place], [address] CO2 [Moles/Vol] 27.3 mmol/L Normal 21.0-32.0 [facility] Comment on above: Performed By: #### M 600.2200, M600.2000, M100.3000, M300.2000, M300.3000, M100.2000, M100.4001 #### [facility] [address] [place], [address] Creatinine [Mass/Vol] 1.09 mg/dL Normal 0.70-1.20 [facility] Comment on above: Performed By: #### M 600.2200, M600.2000, M100.3000, M300.2000, M300.3000, M100.2000, M100.4001 #### [facility] [address] [place], [address] ECRCL 56.04 ml/min Normal 50-250 [facility] Comment on above: Performed By: #### M 600.2200, M600.2000, M100.3000, M300.2000, M300.3000, M100.2000, M100.4001 #### [facility] [address] [place], [address] GAP 11 Normal 5-15 [facility] Comment on above: Performed By: #### M 600.2200, M600.2000, M100.3000, M300.2000, M300.3000, M100.2000, M100.4001 #### [facility] [address] [place], [address] GFR/1.73 sq M.predicted among non-blacks MDRD (S/P/Bld) [Vol rate/Area] 53 mL/min/{1.73_m2} Low >60 [facility] Comment on above: Result Comment: mL/m in/1.73m2 CKD-EPI Creatinine Equation (2020) Performed By: #### M 600.2200, M600.2000, M100.3000, M300.2000, M300.3000, M100.2000, M100.4001 #### [facility] [address] [place], [address] Glucose [Mass/Vol] 96 mg/dL Normal 70-99 [facility] Comment on above: Performed By: #### M 600.2200, M600.2000, M100.3000, M300.2000, M300.3000, M100.2000, M100.4001 #### [facility] [address] [place], [address] Potassium [Moles/Vol] 4.4 mmol/L Normal 3.3-5.1 [facility] Comment on above: Performed By: #### M 600.2200, M600.2000, M100.3000, M300.2000, M300.3000, M100.2000, M100.4001 #### [facility] [address] [place], [address] Sodium [Moles/Vol] 139 mmol/L Normal 133-145 [facility] Comment on above: Performed By: #### M 600.2200, M600.2000, M100.3000, M300.2000, M300.3000, M100.2000, M100.4001 #### [facility] [address] [place], [address] Urea nitrogen [Mass/Vol] 27 mg/dL High 4-19 [facility] Comment on above: Performed By: #### M 600.2200, M600.2000, M100.3000, M300.2000, M300.3000, M100.2000, M100.4001 #### [facility] [address] [place], [address] Basophil percentageOrdered B y: Rodrigo Sanches on 10-03-2024 Basophils/100 WBC (Bld) 0.8 % 0-1 [facility] CBC W/Diff, Automatedon Absolute Lymph 1.20 X10 3/uL Normal 0.83-4.51 [facility] Comment on above: Performed By: #### M 600.2200, M600.2000, M100.3000, M300.2000, M300.3000, M100.2000, M100.4001 #### [facility] [address] [place], [address] Absolute Neut 3.0 X10 3/uL Normal 2.0-7.7 [facility] Comment on above: Performed By: #### M 600.2200, M600.2000, M100.3000, M300.2000, M300.3000, M100.2000, M100.4001 #### [facility] [address] [place], [address] Basophils/100 WBC (Bld) 0.8 % Normal 0-1 [facility] Comment on above: Performed By: #### M 600.2200, M600.2000, M100.3000, M300.2000, M300.3000, M100.2000, M100.4001 #### [facility] [address] [place], [address] Eosinophils/100 WBC (Bld) 5.5 % High 0-5 [facility] Comment on above: Performed By: #### M 600.2200, M600.2000, M100.3000, M300.2000, M300.3000, M100.2000, M100.4001 #### [facility] [address] [place], [address] Erythrocyte distribution width (RBC) [Ratio] 15.0 % High 11.6-14.6 [facility] Comment on above: Performed By: #### M 600.2200, M600.2000, M100.3000, M300.2000, M300.3000, M100.2000, M100.4001 #### [facility] [address] [place], [address] Hematocrit (Bld) [Volume fraction] 37.3 % Normal 37-47 [facility] Comment on above: Performed By: #### M 600.2200, M600.2000, M100.3000, M300.2000, M300.3000, M100.2000, M100.4001 #### [facility] [address] [place], [address] Hemoglobin (Bld) [Mass/Vol] 11.9 g/dL Low 12.0-15.0 [facility] Comment on above: Performed By: #### M 600.2200, M600.2000, M100.3000, M300.2000, M300.3000, M100.2000, M100.4001 #### [facility] [address] [place], [address] IG% 0.600 Normal 0.0-0.9 [facility] Comment on above: Result Comment: IG% - Immature Granulocytes (promyelocytes, myelocytes and metamyelocytes) > 1% indicates that a LEFT SHIFT is Present. Performed By: #### M 600.2200, M600.2000, M100.3000, M300.2000, M300.3000, M100.2000, M100.4001 #### [facility] [address] [place], [address] Lymphocytes/100 WBC (Bld) 22.7 % Normal 19-41 [facility] Comment on above: Performed By: #### M 600.2200, M600.2000, M100.3000, M300.2000, M300.3000, M100.2000, M100.4001 #### [facility] [address] [place], [address] MCH (RBC) [Entitic mass] 29.2 pg Normal 27.0-32.0 [facility] Comment on above: Performed By: #### M 600.2200, M600.2000, M100.3000, M300.2000, M300.3000, M100.2000, M100.4001 #### [facility] [address] [place], [address] MCHC (RBC) [Mass/Vol] 31.9 g/dL Low 32-36 [facility] Comment on above: Performed By: #### M 600.2200, M600.2000, M100.3000, M300.2000, M300.3000, M100.2000, M100.4001 #### [facility] [address] [place], [address] MCV (RBC) [Entitic vol] 91.6 fL Normal 81-99 [facility] Comment on above: Performed By: #### M 600.2200, M600.2000, M100.3000, M300.2000, M300.3000, M100.2000, M100.4001 #### [facility] [address] [place], [address] Monocytes/100 WBC (Bld) 13.4 % High 0-10 [facility] Comment on above: Performed By: #### M 600.2200, M600.2000, M100.3000, M300.2000, M300.3000, M100.2000, M100.4001 #### [facility] [address] [place], [address] Neutrophils/100 WBC (Bld) 57.0 % Normal 47-70 [facility] Comment on above: Performed By: #### M 600.2200, M600.2000, M100.3000, M300.2000, M300.3000, M100.2000, M100.4001 #### [facility] [address] [place], [address] Nucleated RBC (Bld) [#/Vol] 0 10*3/uL Normal 0-5 [facility] Comment on above: Performed By: #### M 600.2200, M600.2000, M100.3000, M300.2000, M300.3000, M100.2000, M100.4001 #### [facility] [address] [place], [address] Platelet mean volume (Bld) [Entitic vol] 10.3 fL Normal 6.2-12.0 [facility] Comment on above: Performed By: #### M 600.2200, M600.2000, M100.3000, M300.2000, M300.3000, M100.2000, M100.4001 #### [facility] [address] [place], [address] Platelets (Bld) [#/Vol] 247 10*3/uL Normal 150-450 [facility] Comment on above: Performed By: #### M 600.2200, M600.2000, M100.3000, M300.2000, M300.3000, M100.2000, M100.4001 #### [facility] [address] [place], [address] RBC (Bld) [#/Vol] 4.07 10*6/uL Low 4.2-5.4 [facility] Comment on above: Performed By: #### M 600.2200, M600.2000, M100.3000, M300.2000, M300.3000, M100.2000, M100.4001 #### [facility] [address] [place], [address] RDW SD 50.2 fl High 35.1-43.9 [facility] Comment on above: Performed By: #### M 600.2200, M600.2000, M100.3000, M300.2000, M300.3000, M100.2000, M100.4001 #### [facility] [address] [place], [address] WBC (Bld) [#/Vol] 5.3 10*3/uL Normal 4.4-11.0 [facility] Comment on above: Performed By: #### M 600.2200, M600.2000, M100.3000, M300.2000, M300.3000, M100.2000, M100.4001 #### [facility] [address] [place], [address] Carbon dioxide, total [Moles /volume] in Central venous bloodOrdered By: Rodrigo Sanches on 10-03-2024 CO2 [Moles/Vol] 27.3 mmol/L 21.0-32.0 [facility] Chloride assayOrdered By: Neftaly Sanches on 10-03-2024 Chloride [Moles/Vol] 100 mmol/L 98-108 [facility] Eosinophil percentageOrdered By: Rodrigo Sanches on 10-03-2024 Eosinophils/100 WBC (Bld) 5.5 % High 0-5 [facility] Erythrocyte distribution wid th (RBC) [Ratio]Ordered By: Rodrigo Sanches on 10-03-2024 Erythrocyte distribution width (RBC) [Entitic vol] 50.2 fL High 35.1-43.9 [facility] Erythrocyte distribution wid th ratioOrdered By: [facility] on 10-03-2024 Erythrocyte distribution width (RBC) [Ratio] 15.0 % High 11.6-14.6 [facility] Estimation of creatinine darrell aranceOrdered By: Rodrigo Sanches on 10-03-2024 Estimated Creatinine Clearance Calc 56.04 ml/min 50-250 [facility] GFR/1.73 sq M.predicted hans g non-blacks MDRD (S/P/Bld) [Vol rate/Area]Ordered By: Rodrigo Sanches on 10-03-2024 Estimated GFR (MDRD) Non-Af Amer 53 Low >60 [facility] Comment on above: mL/min/1.73m2 CKD-EP I Creatinine Equation (2020) Hematocrit Auto (Bld) [Volum e fraction]Ordered By: Rodrigo Sanches 10-03-2024 Hematocrit (Bld) [Volume fraction] 37.3 % 37-47 [facility] Hemoglobin measurementOrdere d By: Rodrigo Sanches 10-03-2024 Hemoglobin (Bld) [Mass/Vol] 11.9 g/dL Low 12.0-15.0 [facility] Immature granulocytes/100 WB C Auto (Bld)Ordered By: Rodrigo Sanches 10-03-2024 Immature granulocytes/100 WBC (Bld) 0.600 % 0.0-0.9 [facility] Comment on above: IG% - Immature Granu locytes (promyelocytes, myelocytes and metamyelocytes) > 1% indicates that a LEFT SHIFT is Present. Lymphocytes Auto (Unsp spec) [#/Vol]Ordered By: Rodrigo Sanches 10-03-2024 Lymphocytes (Bld) [#/Vol] 1.20 10*3/uL 0.83-4.51 [facility] Lymphocytes/100 WBC Auto (Un sp spec)Ordered By: Rodrigo Sanches 10-03-2024 Lymphocytes/100 WBC (Bld) 22.7 % 19-41 [facility] MCV (mean corpuscular volume ) determinationOrdered By: Rodrigo Sanches 10-03-2024 MCV (RBC) [Entitic vol] 91.6 fL 81-99 [facility] Mean corpuscular hemoglobin (MCH) determinationOrdered By: Rodrigo Sanches on 10-03-2024 MCH (RBC) [Entitic mass] 29.2 pg 27.0-32.0 [facility] Mean corpuscular hemoglobin concentration (MCHC) determinationOrdered By: Rodrigo Sanches on 10-03-2024 MCHC (RBC) [Mass/Vol] 31.9 g/dL Low 32-36 [facility] Mean platelet volume determi nationOrdered By: Rodrigo Sanches on 10-03-2024 Platelet mean volume (Bld) [Entitic vol] 10.3 fL 6.2-12.0 [facility] Monocyte percentageOrdered B y: Rodrigo Sanches on 10-03-2024 Monocytes/100 WBC (Bld) 13.4 % High 0-10 [facility] Neutrophil percentageOrdered By: Rodrigo Sanches on 10-03-2024 Neutrophils/100 WBC (Bld) 57.0 % 47-70 [facility] Nucleated red blood cell per centageOrdered By: Rodrigo Sanches on 10-03-2024 Nucleated RBC/100 WBC (Bld) [Ratio] 0 % 0-5 [facility] Platelet countOrdered By: Neftaly Sanches on 10-03-2024 Platelets (Bld) [#/Vol] 247 10*3/uL 150-450 [facility] Potassium (Unsp spec) [Mass/ Vol]Ordered By: Rodrigo Sanches on 10-03-2024 Potassium [Moles/Vol] 4.4 mmol/L 3.3-5.1 [facility] RBC Auto (Bld) [#/Vol]Ordere d By: Rodrigo Sanches on 10-03-2024 RBC (Bld) [#/Vol] 4.07 10*6/uL Low 4.2-5.4 [facility] Serum creatinine measurement (mass/volume)Ordered By: Rodrigo Sanches on 10-03-2024 Creatinine [Mass/Vol] 1.09 mg/dL 0.70-1.20 [facility] Serum glucose measurement (m ass/volume)Ordered By: Rodrigo Sanches on 10-03-2024 Glucose [Mass/Vol] 96 mg/dL 70-99 [facility] Serum or plasma calcium lisa urement (mass/volume)Ordered By: Rodrigo Sanches on 10-03-2024 Calcium [Mass/Vol] 9.2 mg/dL 7.6-11.0 [facility] Serum or plasma urea nitroge n measurement (mass/volume)Ordered By: Rodrigo Myron on 10-03-2024 Urea nitrogen [Mass/Vol] 27 mg/dL High 4-19 [facility] Sodium levelOrdered By: Rodrigo Sanches on 10-03-2024 Sodium [Moles/Vol] 139 mmol/L 133-145 [facility] White blood cell (WBC) count Ordered By: Rodrigo Sanches on 10-03-2024 WBC (Bld) [#/Vol] 5.3 10*3/uL 4.4-11.0 [facility] Vancomycin, Trough Levelon 0 10-01-2024 VANCO, TROUGH 13.2 ug/mL Normal 5.0-15.0 [facility] Comment on above: Order Comment: Comme nts: Trough to be drawn 30 mins prior to scheduled [id number] Result Comment: Zackery mmended goal trough ranges are generally 10-15 mcg/ml for less severe/complicated infections such as cellulitis or UTI and 15-20 mcg/ml for more severe/complicated infections such as bacteremia/sepsis, osteomyelitis, pneumonia or meningitis. Goal trough ranges should take into account indication, patient-specific factors and organism ESPERANZA. VANCOMYCIN STANDARED DRUG THERAPY TROUGH LEVEL: 5.0 - 15.0 mg/L VANCOMYCIN HIGH INTENSITY THERAPY TROUGH LEVEL: 15.0 - 20.0 mg/L High Intensity therapy recommended for serious life threatening infections include: - Meningitis -Endocarditis -Pneumonia (Ventilator/Healtcare Associated) -Sepsis PLEASE CONTACT PHARMACY SERVICES (#[id number]) FOR INTERPRETATION OF RESULTS. Performed By: #### M 600.2200, M600.2000, M100.3000, M300.2000, M300.3000, M100.2000, M100.4001 #### [facility] [address] [place], [address] Vancomycin, Trough Levelon 0 09-29-2024 VANCO, TROUGH 15.6 ug/mL High 5.0-15.0 [facility] Comment on above: Order Comment: Comme nts: DRAW 30 MIN PRIOR TO [id number] Result Comment: Zackery mmended goal trough ranges are generally 10-15 mcg/ml for less severe/complicated infections such as cellulitis or UTI and 15-20 mcg/ml for more severe/complicated infections such as bacteremia/sepsis, osteomyelitis, pneumonia or meningitis. Goal trough ranges should take into account indication, patient-specific factors and organism ESPERANZA. VANCOMYCIN STANDARED DRUG THERAPY TROUGH LEVEL: 5.0 - 15.0 mg/L VANCOMYCIN HIGH INTENSITY THERAPY TROUGH LEVEL: 15.0 - 20.0 mg/L High Intensity therapy recommended for serious life threatening infections include: - Meningitis -Endocarditis -Pneumonia (Ventilator/Healtcare Associated) -Sepsis PLEASE CONTACT PHARMACY SERVICES (#[id number]) FOR INTERPRETATION OF RESULTS. Performed By: #### M 600.2200, M600.2000, M100.3000, M300.2000, M300.3000, M100.2000, M100.4001 #### [facility] [address] [place], [address] Basic Metabolic Profile (BMP )on 09-26-2024 BUN/CRE 25.8 RATIO High 10-20 [facility] Comment on above: Performed By: #### M 600.2200, M600.2000, M100.3000, M300.2000, M300.3000, M100.2000, M100.4001 #### [facility] [address] [place] [place], [address] Calcium [Mass/Vol] 9.5 mg/dL Normal 7.6-11.0 [facility] Comment on above: Performed By: #### M 600.2200, M600.2000, M100.3000, M300.2000, M300.3000, M100.2000, M100.4001 #### [facility] [address] [place], [address] Chloride [Moles/Vol] 100 mmol/L Normal 98-108 [facility] Comment on above: Performed By: #### M 600.2200, M600.2000, M100.3000, M300.2000, M300.3000, M100.2000, M100.4001 #### [facility] [address] [place], [address] CO2 [Moles/Vol] 27.3 mmol/L Normal 21.0-32.0 [facility] Comment on above: Performed By: #### M 600.2200, M600.2000, M100.3000, M300.2000, M300.3000, M100.2000, M100.4001 #### [facility] [address] [place], [address] Creatinine [Mass/Vol] 1.13 mg/dL Normal 0.70-1.20 [facility] Comment on above: Performed By: #### M 600.2200, M600.2000, M100.3000, M300.2000, M300.3000, M100.2000, M100.4001 #### [facility] [address] [place], [address] ECRCL 54.32 ml/min Normal 50-250 [facility] Comment on above: Performed By: #### M 600.2200, M600.2000, M100.3000, M300.2000, M300.3000, M100.2000, M100.4001 #### [facility] [address] [place], [address] GAP 12 Normal 5-15 [facility] Comment on above: Performed By: #### M 600.2200, M600.2000, M100.3000, M300.2000, M300.3000, M100.2000, M100.4001 #### [facility] [address] [place], [address] GFR/1.73 sq M.predicted among non-blacks MDRD (S/P/Bld) [Vol rate/Area] 51 mL/min/{1.73_m2} Low >60 [facility] Comment on above: Result Comment: mL/m in/1.73m2 CKD-EPI Creatinine Equation (2020) Performed By: #### M 600.2200, M600.2000, M100.3000, M300.2000, M300.3000, M100.2000, M100.4001 #### [facility] [address] [place], [address] Glucose [Mass/Vol] 100 mg/dL High 70-99 [facility] Comment on above: Performed By: #### M 600.2200, M600.2000, M100.3000, M300.2000, M300.3000, M100.2000, M100.4001 #### [facility] [address] [place], [address] Potassium [Moles/Vol] 5.0 mmol/L Normal 3.3-5.1 [facility] Comment on above: Performed By: #### M 600.2200, M600.2000, M100.3000, M300.2000, M300.3000, M100.2000, M100.4001 #### [facility] [address] [place], [address] Sodium [Moles/Vol] 139 mmol/L Normal 133-145 [facility] Comment on above: Performed By: #### M 600.2200, M600.2000, M100.3000, M300.2000, M300.3000, M100.2000, M100.4001 #### [facility] [address] [place], [address] Urea nitrogen [Mass/Vol] 29 mg/dL High 4-19 [facility] Comment on above: Performed By: #### M 600.2200, M600.2000, M100.3000, M300.2000, M300.3000, M100.2000, M100.4001 #### [facility] [address] [place], [address] CBC W/Diff, Automatedon 03-2 Absolute Lymph 1.52 X10 3/uL Normal 0.83-4.51 [facility] Comment on above: Performed By: #### M 600.2200, M600.2000, M100.3000, M300.2000, M300.3000, M100.2000, M100.4001 #### [facility] [address] [place], [address] Absolute Neut 5.2 X10 3/uL Normal 2.0-7.7 [facility] Comment on above: Performed By: #### M 600.2200, M600.2000, M100.3000, M300.2000, M300.3000, M100.2000, M100.4001 #### [facility] [address] [place], [address] Basophils/100 WBC (Bld) 1.0 % Normal 0-1 [facility] Comment on above: Performed By: #### M 600.2200, M600.2000, M100.3000, M300.2000, M300.3000, M100.2000, M100.4001 #### [facility] [address] [place], [address] Eosinophils/100 WBC (Bld) 3.9 % Normal 0-5 [facility] Comment on above: Performed By: #### M 600.2200, M600.2000, M100.3000, M300.2000, M300.3000, M100.2000, M100.4001 #### [facility] [address] [place], [address] Erythrocyte distribution width (RBC) [Ratio] 14.6 % Normal 11.6-14.6 [facility] Comment on above: Performed By: #### M 600.2200, M600.2000, M100.3000, M300.2000, M300.3000, M100.2000, M100.4001 #### [facility] [address] [place], [address] Hematocrit (Bld) [Volume fraction] 37.0 % Normal 37-47 [facility] Comment on above: Performed By: #### M 600.2200, M600.2000, M100.3000, M300.2000, M300.3000, M100.2000, M100.4001 #### [facility] [address] [place], [address] Hemoglobin (Bld) [Mass/Vol] 12.1 g/dL Normal 12.0-15.0 [facility] Comment on above: Performed By: #### M 600.2200, M600.2000, M100.3000, M300.2000, M300.3000, M100.2000, M100.4001 #### [facility] [address] [place] [place], [address] IG% 0.800 Normal 0.0-0.9 [facility] Comment on above: Result Comment: IG% - Immature Granulocytes (promyelocytes, myelocytes and metamyelocytes) > 1% indicates that a LEFT SHIFT is Present. Performed By: #### M 600.2200, M600.2000, M100.3000, M300.2000, M300.3000, M100.2000, M100.4001 #### [facility] [address] [place], [address] Lymphocytes/100 WBC (Bld) 19.3 % Normal 19-41 [facility] Comment on above: Performed By: #### M 600.2200, M600.2000, M100.3000, M300.2000, M300.3000, M100.2000, M100.4001 #### [facility] [address] [place], [address] MCH (RBC) [Entitic mass] 29.7 pg Normal 27.0-32.0 [facility] Comment on above: Performed By: #### M 600.2200, M600.2000, M100.3000, M300.2000, M300.3000, M100.2000, M100.4001 #### [facility] [address] [place], [address] MCHC (RBC) [Mass/Vol] 32.7 g/dL Normal 32-36 [facility] Comment on above: Performed By: #### M 600.2200, M600.2000, M100.3000, M300.2000, M300.3000, M100.2000, M100.4001 #### [facility] [address] [place], [address] MCV (RBC) [Entitic vol] 90.9 fL Normal 81-99 [facility] Comment on above: Performed By: #### M 600.2200, M600.2000, M100.3000, M300.2000, M300.3000, M100.2000, M100.4001 #### [facility] [address] [place], [address] Monocytes/100 WBC (Bld) 8.5 % Normal 0-10 [facility] Comment on above: Performed By: #### M 600.2200, M600.2000, M100.3000, M300.2000, M300.3000, M100.2000, M100.4001 #### [facility] [address] [place], [address] Neutrophils/100 WBC (Bld) 66.5 % Normal 47-70 [facility] Comment on above: Performed By: #### M 600.2200, M600.2000, M100.3000, M300.2000, M300.3000, M100.2000, M100.4001 #### [facility] [address] [place], [address] Nucleated RBC (Bld) [#/Vol] 0 10*3/uL Normal 0-5 [facility] Comment on above: Performed By: #### M 600.2200, M600.2000, M100.3000, M300.2000, M300.3000, M100.2000, M100.4001 #### [facility] [address] [place], [address] Platelet mean volume (Bld) [Entitic vol] 10.2 fL Normal 6.2-12.0 [facility] Comment on above: Performed By: #### M 600.2200, M600.2000, M100.3000, M300.2000, M300.3000, M100.2000, M100.4001 #### [facility] [address] [place], [address] Platelets (Bld) [#/Vol] 390 10*3/uL Normal 150-450 [facility] Comment on above: Performed By: #### M 600.2200, M600.2000, M100.3000, M300.2000, M300.3000, M100.2000, M100.4001 #### [facility] [address] [place], [address] RBC (Bld) [#/Vol] 4.07 10*6/uL Low 4.2-5.4 [facility] Comment on above: Performed By: #### M 600.2200, M600.2000, M100.3000, M300.2000, M300.3000, M100.2000, M100.4001 #### [facility] [address] [place], [address] RDW SD 47.8 fl High 35.1-43.9 [facility] Comment on above: Performed By: #### M 600.2200, M600.2000, M100.3000, M300.2000, M300.3000, M100.2000, M100.4001 #### [facility] [address] [place], [address] WBC (Bld) [#/Vol] 7.9 10*3/uL Normal 4.4-11.0 [facility] Comment on above: Performed By: #### M 600.2200, M600.2000, M100.3000, M300.2000, M300.3000, M100.2000, M100.4001 #### [facility] [address] [place], [place], [id number] Vancomycin, Trough Levelon 0 09-24-2024 VANCO, TROUGH 13.3 ug/mL Normal 5.0-15.0 [facility] Comment on above: Order Comment: Comme nts: Trough to be drawn 30 mins prior to scheduled [id number] Result Comment: Zackery mmended goal trough ranges are generally 10-15 mcg/ml for less severe/complicated infections such as cellulitis or UTI and 15-20 mcg/ml for more severe/complicated infections such as bacteremia/sepsis, osteomyelitis, pneumonia or meningitis. Goal trough ranges should take into account indication, patient-specific factors and organism ESPERANZA. VANCOMYCIN STANDARED DRUG THERAPY TROUGH LEVEL: 5.0 - 15.0 mg/L VANCOMYCIN HIGH INTENSITY THERAPY TROUGH LEVEL: 15.0 - 20.0 mg/L High Intensity therapy recommended for serious life threatening infections include: - Meningitis -Endocarditis -Pneumonia (Ventilator/Healtcare Associated) -Sepsis PLEASE CONTACT PHARMACY SERVICES (#[id number]) FOR INTERPRETATION OF RESULTS. Performed By: #### M 600.2200, M600.2000, M100.3000, M300.2000, M300.3000, M100.2000, M100.4001 #### [facility] [address], [place], [id number] Vancomycin, Trough Levelon 0 09-22-2024 VANCO, TROUGH 12.4 ug/mL Normal 5.0-15.0 [facility] Comment on above: Order Comment: 0900 Result Comment: Zackery mmended goal trough ranges are generally 10-15 mcg/ml for less severe/complicated infections such as cellulitis or UTI and 15-20 mcg/ml for more severe/complicated infections such as bacteremia/sepsis, osteomyelitis, pneumonia or meningitis. Goal trough ranges should take into account indication, patient-specific factors and organism ESPERANZA. VANCOMYCIN STANDARED DRUG THERAPY TROUGH LEVEL: 5.0 - 15.0 mg/L VANCOMYCIN HIGH INTENSITY THERAPY TROUGH LEVEL: 15.0 - 20.0 mg/L High Intensity therapy recommended for serious life threatening infections include: - Meningitis -Endocarditis -Pneumonia (Ventilator/Healtcare Associated) -Sepsis PLEASE CONTACT PHARMACY SERVICES (#[id number]) FOR INTERPRETATION OF RESULTS. Performed By: #### M 600.2200, M600.2000, M100.3000, M300.2000, M300.3000, M100.2000, M100.4001 #### [facility] [address] [place], [address] Bilirubin, totalOrdered By: Rodrigo Sanches on 09-21-2024 Bilirubin [Mass/Vol] 0.22 mg/dL 0.00-1.30 [facility] Comprehensive Metabolic Prof ilon 09-21-2024 Albumin [Mass/Vol] 3.2 g/dL Low 3.4-4.8 [facility] Comment on above: Performed By: #### M 600.2200, M600.2000, M100.3000, M300.2000, M300.3000, M100.2000, M100.4001 #### [facility] [address] [place], [address] Albumin/Globulin [Mass ratio] 0.9 {ratio} Normal 0.9-2.4 [facility] Comment on above: Performed By: #### M 600.2200, M600.2000, M100.3000, M300.2000, M300.3000, M100.2000, M100.4001 #### [facility] [address], [address] ALK PHOS 120 U/L High 35-104 [facility] Comment on above: Performed By: #### M 600.2200, M600.2000, M100.3000, M300.2000, M300.3000, M100.2000, M100.4001 #### [facility] [address] [place], [address] ALT [Catalytic activity/Vol] 15 U/L Normal <=34 [facility] Comment on above: Performed By: #### M 600.2200, M600.2000, M100.3000, M300.2000, M300.3000, M100.2000, M100.4001 #### [facility] [address] [place], [address] AST [Catalytic activity/Vol] 23 U/L Normal <=31 [facility] Comment on above: Performed By: #### M 600.2200, M600.2000, M100.3000, M300.2000, M300.3000, M100.2000, M100.4001 #### [facility] [address] [place], [address] Bilirubin [Mass/Vol] 0.22 mg/dL Normal 0.00-1.30 [facility] Comment on above: Performed By: #### M 600.2200, M600.2000, M100.3000, M300.2000, M300.3000, M100.2000, M100.4001 #### [facility] [address] [place], [address] BUN/CRE 21.1 RATIO High 10-20 [facility] Comment on above: Performed By: #### M 600.2200, M600.2000, M100.3000, M300.2000, M300.3000, M100.2000, M100.4001 #### [facility] [address] [place], [address] Calcium [Mass/Vol] 9.2 mg/dL Normal 7.6-11.0 [facility] Comment on above: Performed By: #### M 600.2200, M600.2000, M100.3000, M300.2000, M300.3000, M100.2000, M100.4001 #### [facility] [address] [place], [address] Chloride [Moles/Vol] 99 mmol/L Normal 98-108 [facility] Comment on above: Performed By: #### M 600.2200, M600.2000, M100.3000, M300.2000, M300.3000, M100.2000, M100.4001 #### [facility] [address] [place], [address] CO2 [Moles/Vol] 27.1 mmol/L Normal 21.0-32.0 [facility] Comment on above: Performed By: #### M 600.2200, M600.2000, M100.3000, M300.2000, M300.3000, M100.2000, M100.4001 #### [facility] [address] [place], [address] ECRCL 51.50 ml/min Normal 50-250 [facility] Comment on above: Performed By: #### M 600.2200, M600.2000, M100.3000, M300.2000, M300.3000, M100.2000, M100.4001 #### [facility] [address] [place], [address] GAP 12 Normal 5-15 [facility] Comment on above: Performed By: #### M 600.2200, M600.2000, M100.3000, M300.2000, M300.3000, M100.2000, M100.4001 #### [facility] [address] [place], [place], [id number] [phone] GFR/1.73 sq M.predicted among non-blacks MDRD (S/P/Bld) [Vol rate/Area] 48 mL/min/{1.73_m2} Low >60 [facility] Comment on above: Result Comment: mL/m in/1.73m2 CKD-EPI Creatinine Equation (2020) Performed By: #### M 600.2200, M600.2000, M100.3000, M300.2000, M300.3000, M100.2000, M100.4001 #### [facility] [address] [place], [address] Globulin (S) [Mass/Vol] 3.5 g/dL Normal 2.2-4.2 [facility] Comment on above: Performed By: #### M 600.2200, M600.2000, M100.3000, M300.2000, M300.3000, M100.2000, M100.4001 #### [facility] [address] [place], [address] Potassium [Moles/Vol] 4.6 mmol/L Normal 3.3-5.1 [facility] Comment on above: Performed By: #### M 600.2200, M600.2000, M100.3000, M300.2000, M300.3000, M100.2000, M100.4001 #### [facility] [address] [place], [address] Sodium [Moles/Vol] 138 mmol/L Normal 133-145 [facility] Comment on above: Performed By: #### M 600.2200, M600.2000, M100.3000, M300.2000, M300.3000, M100.2000, M100.4001 #### [facility] [address] [place], [address] T PROT 6.7 g/dL Normal 5.9-8.4 [facility] Comment on above: Performed By: #### M 600.2200, M600.2000, M100.3000, M300.2000, M300.3000, M100.2000, M100.4001 #### [facility] [address] [place], [address] Creatinine [Mass/Vol] 1.19 mg/dL Normal 0.70-1.20 [facility] Comment on above: Performed By: #### M 600.2200, M600.2000, M100.3000, M300.2000, M300.3000, M100.2000, M100.4001 #### [facility] [address] [place], [address] Glucose [Mass/Vol] 99 mg/dL Normal 70-99 [facility] Comment on above: Performed By: #### M 600.2200, M600.2000, M100.3000, M300.2000, M300.3000, M100.2000, M100.4001 #### [facility] [address] [place], [place], [address] Urea nitrogen [Mass/Vol] 25 mg/dL High 4-19 [facility] Comment on above: Performed By: #### M 600.2200, M600.2000, M100.3000, M300.2000, M300.3000, M100.2000, M100.4001 #### [facility] [address] [place], [address] Laboratory - Chemistry and C hemistry - challengeOrdered By: Rodrigo Sanches on 09-21-2024 AST [Catalytic activity/Vol] 23 U/L <32 [facility] Serum globulin measurementOr dered By: Rodrigo Sanches 09-21-2024 Globulin (S) [Mass/Vol] 3.5 g/dL 2.2-4.2 [facility] Serum or plasma alanine gao otransferase (ALT) measurementOrdered By: Rodrigo Sanches on 09-21-2024 ALT [Catalytic activity/Vol] 15 U/L <35 [facility] Serum or plasma albumin lisa urement (mass/volume)Ordered By: Rodrigo Sanches 09-21-2024 Albumin [Mass/Vol] 3.2 g/dL Low 3.4-4.8 [facility] Serum or plasma albumin/glob ulin mass ratioOrdered By: Rodrigo Sanches 09-21-2024 Albumin/Globulin [Mass ratio] 0.9 {ratio} 0.9-2.4 [facility] Serum or plasma alkaline bee sphatase measurementOrdered By: Rodrigo Sanches 09-21-2024 ALP [Catalytic activity/Vol] 120 U/L High 35-104 [facility] Total proteinOrdered By: Rodrigo Sanches 09-21-2024 Protein [Mass/Vol] 6.7 g/dL 5.9-8.4 [facility] Vancomycin, Trough Levelon 0 - VANCO, TROUGH 9.9 ug/mL Normal 5.0-15.0 [facility] Comment on above: Order Comment: 0800 Result Comment: VANC OMYCIN STANDARED DRUG THERAPY TROUGH LEVEL: 5.0 - 15.0 mg/L VANCOMYCIN HIGH INTENSITY THERAPY TROUGH LEVEL: 15.0 - 20.0 mg/L High Intensity therapy recommended for serious life threatening infections include: - Meningitis -Endocarditis -Pneumonia (Ventilator/Healtcare Associated) -Sepsis PLEASE CONTACT PHARMACY SERVICES (#[id number]) FOR INTERPRETATION OF RESULTS. AMENDED REPORT 09/20/24 0844 VANCO, TROUGH previously reported as: 10.3 ug/mL Recommended goal trough ranges are generally 10-15 mcg/ml for less severe/complicated infections such as cellulitis or UTI and 15-20 mcg/ml for more severe/complicated infections such as bacteremia/sepsis, osteomyelitis, pneumonia or meningitis. Goal trough ranges should take into account indication, patient-specific factors and organism ESPERANZA. VANCOMYCIN STANDARED DRUG THERAPY TROUGH LEVEL: 5.0 - 15.0 mg/L VANCOMYCIN HIGH INTENSITY THERAPY TROUGH LEVEL: 15.0 - 20.0 mg/L High Intensity therapy recommended for serious life threatening infections include: - Meningitis -Endocarditis -Pneumonia (Ventilator/Healtcare Associated) -Sepsis PLEASE CONTACT PHARMACY SERVICES (#[id number]) FOR INTERPRETATION OF RESULTS. Recommended goal trough ranges are generally 10-15 mcg/ml for less severe/complicated infections such as cellulitis or UTI and 15-20 mcg/ml for more severe/complicated infections such as bacteremia/sepsis, osteomyelitis, pneumonia or meningitis. Goal trough ranges should take into account indication, patient-specific factors and organism ESPERANZA. VANCOMYCIN STANDARED DRUG THERAPY TROUGH LEVEL: 5.0 - 15.0 mg/L VANCOMYCIN HIGH INTENSITY THERAPY TROUGH LEVEL: 15.0 - 20.0 mg/L High Intensity therapy recommended for serious life threatening infections include: - Meningitis -Endocarditis -Pneumonia (Ventilator/Healtcare Associated) -Sepsis PLEASE CONTACT PHARMACY SERVICES (#[id number]) FOR INTERPRETATION OF RESULTS. Performed By: #### M 600.2200, M600.2000, M100.3000, M300.2000, M300.3000, M100.2000, M100.4001 #### [facility] [address] [place], [place], [address] Basic Metabolic Profile (BMP )on 09-19-2024 BUN/CRE 18.6 RATIO Normal 04-21 [facility] Comment on above: Performed By: #### M 600.2200, M600.2000, M100.3000, M300.2000, M300.3000, M100.2000, M100.4001 #### [facility] [address] [place], [address] Calcium [Mass/Vol] 9.7 mg/dL Normal 7.6-11.0 [facility] Comment on above: Performed By: #### M 600.2200, M600.2000, M100.3000, M300.2000, M300.3000, M100.2000, M100.4001 #### [facility] [address] [place], [address] Chloride [Moles/Vol] 97 mmol/L Low 98-108 [facility] Comment on above: Performed By: #### M 600.2200, M600.2000, M100.3000, M300.2000, M300.3000, M100.2000, M100.4001 #### [facility] [address] [place], [address] CO2 [Moles/Vol] 30.4 mmol/L Normal 21.0-32.0 [facility] Comment on above: Performed By: #### M 600.2200, M600.2000, M100.3000, M300.2000, M300.3000, M100.2000, M100.4001 #### [facility] [address] [place], [address] Creatinine [Mass/Vol] 1.07 mg/dL Normal 0.70-1.20 [facility] Comment on above: Performed By: #### M 600.2200, M600.2000, M100.3000, M300.2000, M300.3000, M100.2000, M100.4001 #### [facility] [address] [place], [address] ECRCL 57.28 ml/min Normal 50-250 [facility] Comment on above: Performed By: #### M 600.2200, M600.2000, M100.3000, M300.2000, M300.3000, M100.2000, M100.4001 #### [facility] [address] [place], [address] GAP 14 Normal 5-15 [facility] Comment on above: Performed By: #### M 600.2200, M600.2000, M100.3000, M300.2000, M300.3000, M100.2000, M100.4001 #### [facility] [address] [place], [address] GFR/1.73 sq M.predicted among non-blacks MDRD (S/P/Bld) [Vol rate/Area] 54 mL/min/{1.73_m2} Low >60 [facility] Comment on above: Result Comment: mL/m in/1.73m2 CKD-EPI Creatinine Equation (2020) Performed By: #### M 600.2200, M600.2000, M100.3000, M300.2000, M300.3000, M100.2000, M100.4001 #### [facility] [address] [place], [address] Glucose [Mass/Vol] 101 mg/dL High 70-99 [facility] Comment on above: Performed By: #### M 600.2200, M600.2000, M100.3000, M300.2000, M300.3000, M100.2000, M100.4001 #### [facility] [address] [place], [address] Potassium [Moles/Vol] 4.6 mmol/L Normal 3.3-5.1 [facility] Comment on above: Performed By: #### M 600.2200, M600.2000, M100.3000, M300.2000, M300.3000, M100.2000, M100.4001 #### [facility] [address] [place], [address] Sodium [Moles/Vol] 142 mmol/L Normal 133-145 [facility] Comment on above: Performed By: #### M 600.2200, M600.2000, M100.3000, M300.2000, M300.3000, M100.2000, M100.4001 #### [facility] [address] [place], [address] Urea nitrogen [Mass/Vol] 20 mg/dL High 4-19 [facility] Comment on above: Performed By: #### M 600.2200, M600.2000, M100.3000, M300.2000, M300.3000, M100.2000, M100.4001 #### [facility] [address] [place], [address] CBC W/Diff, Automatedon 03-2 0-2024 Absolute Lymph 1.49 X10 3/uL Normal 0.83-4.51 [facility] Comment on above: Performed By: #### M 600.2200, M600.2000, M100.3000, M300.2000, M300.3000, M100.2000, M100.4001 #### [facility] [address] [place], [address] Absolute Neut 7.6 X10 3/uL Normal 2.0-7.7 [facility] Comment on above: Performed By: #### M 600.2200, M600.2000, M100.3000, M300.2000, M300.3000, M100.2000, M100.4001 #### [facility] [address] [place], [address] Basophils/100 WBC (Bld) 0.8 % Normal 0-1 [facility] Comment on above: Performed By: #### M 600.2200, M600.2000, M100.3000, M300.2000, M300.3000, M100.2000, M100.4001 #### [facility] [address] [place], [address] Eosinophils/100 WBC (Bld) 2.9 % Normal 0-5 [facility] Comment on above: Performed By: #### M 600.2200, M600.2000, M100.3000, M300.2000, M300.3000, M100.2000, M100.4001 #### [facility] [address] [place], [address] Erythrocyte distribution width (RBC) [Ratio] 14.1 % Normal 11.6-14.6 [facility] Comment on above: Performed By: #### M 600.2200, M600.2000, M100.3000, M300.2000, M300.3000, M100.2000, M100.4001 #### [facility] [address] [place], [address] Hematocrit (Bld) [Volume fraction] 38.9 % Normal 37-47 [facility] Comment on above: Performed By: #### M 600.2200, M600.2000, M100.3000, M300.2000, M300.3000, M100.2000, M100.4001 #### [facility] [address] [place] [place], [address] Hemoglobin (Bld) [Mass/Vol] 12.3 g/dL Normal 12.0-15.0 [facility] Comment on above: Performed By: #### M 600.2200, M600.2000, M100.3000, M300.2000, M300.3000, M100.2000, M100.4001 #### [facility] [address] [place], [address] IG% 1.200 High 0.0-0.9 [facility] Comment on above: Result Comment: IG% - Immature Granulocytes (promyelocytes, myelocytes and metamyelocytes) > 1% indicates that a LEFT SHIFT is Present. Performed By: #### M 600.2200, M600.2000, M100.3000, M300.2000, M300.3000, M100.2000, M100.4001 #### [facility] [address] [place], [address] Lymphocytes/100 WBC (Bld) 14.6 % Low 19-41 [facility] Comment on above: Performed By: #### M 600.2200, M600.2000, M100.3000, M300.2000, M300.3000, M100.2000, M100.4001 #### [facility] [address] [place], [address] MCH (RBC) [Entitic mass] 29.4 pg Normal 27.0-32.0 [facility] Comment on above: Performed By: #### M 600.2200, M600.2000, M100.3000, M300.2000, M300.3000, M100.2000, M100.4001 #### [facility] [address] [place], [address] MCHC (RBC) [Mass/Vol] 31.6 g/dL Low 32-36 [facility] Comment on above: Performed By: #### M 600.2200, M600.2000, M100.3000, M300.2000, M300.3000, M100.2000, M100.4001 #### [facility] [address] [place], [address] MCV (RBC) [Entitic vol] 93.1 fL Normal 81-99 [facility] Comment on above: Performed By: #### M 600.2200, M600.2000, M100.3000, M300.2000, M300.3000, M100.2000, M100.4001 #### [facility] [address] [place], [address] Monocytes/100 WBC (Bld) 6.3 % Normal 0-10 [facility] Comment on above: Performed By: #### M 600.2200, M600.2000, M100.3000, M300.2000, M300.3000, M100.2000, M100.4001 #### [facility] [address] [place], [address] Neutrophils/100 WBC (Bld) 74.2 % High 47-70 [facility] Comment on above: Performed By: #### M 600.2200, M600.2000, M100.3000, M300.2000, M300.3000, M100.2000, M100.4001 #### [facility] [address] [place], [address] Nucleated RBC (Bld) [#/Vol] 0 10*3/uL Normal 0-5 [facility] Comment on above: Performed By: #### M 600.2200, M600.2000, M100.3000, M300.2000, M300.3000, M100.2000, M100.4001 #### [facility] [address] [place], [address] Platelet mean volume (Bld) [Entitic vol] 9.5 fL Normal 6.2-12.0 [facility] Comment on above: Performed By: #### M 600.2200, M600.2000, M100.3000, M300.2000, M300.3000, M100.2000, M100.4001 #### [facility] [address] [place], [address] Platelets (Bld) [#/Vol] 349 10*3/uL Normal 150-450 [facility] Comment on above: Performed By: #### M 600.2200, M600.2000, M100.3000, M300.2000, M300.3000, M100.2000, M100.4001 #### [facility] [address] [place], [address] RBC (Bld) [#/Vol] 4.18 10*6/uL Low 4.2-5.4 [facility] Comment on above: Performed By: #### M 600.2200, M600.2000, M100.3000, M300.2000, M300.3000, M100.2000, M100.4001 #### [facility] [address] [place], [address] RDW SD 48.7 fl High 35.1-43.9 [facility] Comment on above: Performed By: #### M 600.2200, M600.2000, M100.3000, M300.2000, M300.3000, M100.2000, M100.4001 #### [facility] [address] [place], [address] WBC (Bld) [#/Vol] 10.2 10*3/uL Normal 4.4-11.0 [facility] Comment on above: Performed By: #### M 600.2200, M600.2000, M100.3000, M300.2000, M300.3000, M100.2000, M100.4001 #### [facility] [address] [place], [address] Culture, Blood (WB)on 2024 CUB No growth in 5 days. Normal [facility] Comment on above: Performed By: #### M 200.1000 #### [facility] [address] [place], [address] Vancomycin trough [Mass/Vol] Ordered By: Fahad Cavanaugh on 09-18-2024 Vancomycin Level Trough 10.7 ug/mL 5.0-15.0 [facility] Comment on above: Recommended goal tro ugh ranges are generally 10-15 mcg/ml for less severe/complicated infections such as cellulitis or UTI and 15-20 mcg/ml for more severe/complicated infections such as bacteremia/sepsis, osteomyelitis, pneumonia or meningitis. Goal trough ranges should take into account indication, patient-specific factors and organism ESPERANZA.VANCOMYCIN STANDARED DRUG THERAPY TROUGH LEVEL: 5.0 - 15.0 mg/L VANCOMYCIN HIGH INTENSITY THERAPY TROUGH LEVEL: 15.0 - 20.0 mg/L High Intensity therapy recommended for serious lifethreatening infections include:- Ardycvbiqu-Rwekejstcooj-Qyqryrnsc (Ventilator/Healtcare Associated)-Sepsis PLEASE CONTACT PHARMACY SERVICES (#[id number]) FOR INTERPRETATIONOF RESULTS. Vancomycin, Trough Levelon 0 09-18-2024 VANCO, TROUGH 10.7 ug/mL Normal 5.0-15.0 [facility] Comment on above: Order Comment: Comme nts: DRAW 30 MIN PRIOR TO [id number] Result Comment: Zackery mmended goal trough ranges are generally 10-15 mcg/ml for less severe/complicated infections such as cellulitis or UTI and 15-20 mcg/ml for more severe/complicated infections such as bacteremia/sepsis, osteomyelitis, pneumonia or meningitis. Goal trough ranges should take into account indication, patient-specific factors and organism ESPERANZA. VANCOMYCIN STANDARED DRUG THERAPY TROUGH LEVEL: 5.0 - 15.0 mg/L VANCOMYCIN HIGH INTENSITY THERAPY TROUGH LEVEL: 15.0 - 20.0 mg/L High Intensity therapy recommended for serious life threatening infections include: - Meningitis -Endocarditis -Pneumonia (Ventilator/Healtcare Associated) -Sepsis PLEASE CONTACT PHARMACY SERVICES (#[id number]) FOR INTERPRETATION OF RESULTS. Performed By: #### M 600.2200, M600.2000, M100.3000, M300.2000, M300.3000, M100.2000, M100.4001 #### [facility] [address] [place], [address] C. difficile DNA RANJIT+probe Q l (Unsp spec)Ordered By: Claire Mayorga on 09-17-2024 Clostridioides difficile (PCR) [facility] CDIFF (PCR)on 09-17-2024 CDIFF Is the patient receiving laxatives? N Above criteria not met but test indicated N New/unexplained onset of 3 or more stools in past 24 hrs? N Pending [phone] NAP1-B1 Presumptive Negative *for epidemiolologic???us e C. Diff PCR Negative- No toxigenic C. Diff Detected Normal [facility] Comment on above: Performed By: #### M 600.2200, M600.2000, M100.3000, M300.2000, M300.3000, M100.2000, M100.4001 #### [facility] [address] [place], [address] Culture, Anaerobic Any Sourc akosua 09-17-2024 CUAN UNK UNK Left Humeral Membrane - collected in [place] No anaerobic bacteria isolated. [facility] Comment on above: Performed By: #### M 600.2200, M600.2000, M100.3000, M300.2000, M300.3000, M100.2000, M100.4001 #### [facility] [address] [place], [place], [id number] CUAN UNK UNK Left Posterior Synovium - collected in [place] No anaerobic bacteria isolated. Normal [facility] Comment on above: Performed By: #### M 600.2200, M600.2000, M100.3000, M300.2000, M300.3000, M100.2000, M100.4001 #### [facility] [address] [place], [place], [id number] CUAN UNK UNK Left Glenosphere Membrane - collected in [place] No anaerobic bacteria isolated. Normal [facility] Comment on above: Performed By: #### M 600.2200, M600.2000, M100.3000, M300.2000, M300.3000, M100.2000, M100.4001 #### [facility] [address] [place], [place], [address] CUAN Results called on 09/12/24-1023 by FOREST to [phone]. UNK UNK No anaerobic bacteria isolated. [facility] Comment on above: Performed By: #### M 600.2200, M600.2000, M100.3000, M300.2000, M300.3000, M100.2000, M100.4001 #### [facility] [address] [place], [place], [id number] 12 Lead EKGon 09-16-2024 12 Lead EKG [facility] [facility] Cardiovascular Services [address] [place] [address] 12 Lead EKG 09/12/24 0804 MR#: [id number] Acct: [id number] Name: OSCAR WOO Rep #: [id number] : 1950 74 From: Tejal Hloly MD Attending Dr: Dr. Fahad Cavanaugh MD Status: ADM IN Ordering Dr: Omar Walters MD Date: 09/16/24 Location: [facility] Sex: F C Admitted: 09/14/24 Test Reason : PREOP Blood Pressure : */* mmHG Vent. Rate : 87 BPM Atrial Rate : 87 BPM P-R Int : 224 ms QRS Dur : 108 ms QT Int : 376 ms P-R-T Axes : 63 59 93 degrees QTcB Int : 452 ms Sinus rhythm with 1st degree A-V block Nonspecific ST and T wave abnormality Abnormal ECG Confirmed by ELAYNE COTTER, MARIELENA ([id number]), editorial cartoonist TRINITY ORTIZ ([id number]) on 09/16/2024 11:30:54 AM Referred By: Fahad Cavanaugh Confirmed By: MARIELENA HOLLY MD 09/16/24 1130 Date Tejal Holly MD CC: Dr. Omar Walters MD; Dr. Hernando Grimes MD; Dr. Fahad Cavanaugh MD Signed Normal [facility] Absolute neutrophil countOrd ered By: Emili Lee on 09-16-2024 Neutrophils (Bld) [#/Vol] 7.1 10*3/uL 2.0-7.7 [facility] Anion gap in Serum or Plasma Ordered By: Emili Lee on 09-16-2024 Anion gap [Moles/Vol] 7 mmol/L 5-15 [facility] Automated blood erythrocyte countOrdered By: Emili Lee on 09-16-2024 RBC (Bld) [#/Vol] 3.69 10*6/uL Low 4.2-5.4 [facility] Comment on above: Performed By: #### M 600.2200, M600.2000, M100.3000, M300.2000, M300.3000, M100.2000, M100.4001 #### [facility] Laboratory [address] [place], [address] Automated blood hematocrit ( percentage)Ordered By: Emili Lee on 09-16-2024 Hematocrit (Bld) [Volume fraction] 35.3 % Low 37-47 [facility] Comment on above: Performed By: #### M 600.2200, M600.2000, M100.3000, M300.2000, M300.3000, M100.2000, M100.4001 #### [facility] Laboratory [address] [place], [address] Automated lymphocyte count a s percentage of total leukocytesOrdered By: Emili Lee on 09-16-2024 Lymphocytes/100 WBC (Bld) 11.6 % Low 19-41 [facility] Comment on above: Performed By: #### M 600.2200, M600.2000, M100.3000, M300.2000, M300.3000, M100.2000, M100.4001 #### [facility] Laboratory [address] [place], [address] BUN/creatinine ratioOrdered By: Emili Lee on 09-16-2024 Urea nitrogen/Creatinine [Mass ratio] 25.4 mg/mg High 10-20 [facility] Basic Metabolic Profile (BMP )on 09-16-2024 BUN/CRE 25.4 RATIO High [facility]20 [facility] Comment on above: Performed By: #### M 600.2200, M600.2000, M100.3000, M300.2000, M300.3000, M100.2000, M100.4001 #### [facility] Laboratory [address] [place], [address] ECRCL 65.28 ml/min Normal 50-250 [facility] Comment on above: Performed By: #### M 600.2200, M600.2000, M100.3000, M300.2000, M300.3000, M100.2000, M100.4001 #### [facility] Laboratory [address] [place], [address] GAP 7 Normal 5-15 [facility] Comment on above: Performed By: #### M 600.2200, M600.2000, M100.3000, M300.2000, M300.3000, M100.2000, M100.4001 #### [facility] Laboratory [address] [place], [address] GFR/1.73 sq M.predicted among non-blacks MDRD (S/P/Bld) [Vol rate/Area] 64 mL/min/{1.73_m2} Normal >60 [facility] Comment on above: Result Comment: mL/m in/1.73m2 CKD-EPI Creatinine Equation (2020) Performed By: #### M 600.2200, M600.2000, M100.3000, M300.2000, M300.3000, M100.2000, M100.4001 #### [facility] Laboratory [address] [place], [address] Basophil percentageOrdered B y: Emili Lee on 09-16-2024 Basophils/100 WBC (Bld) 0.4 % Normal 0-1 [facility] Comment on above: Performed By: #### M 600.2200, M600.2000, M100.3000, M300.2000, M300.3000, M100.2000, M100.4001 #### [facility] Laboratory [address] [place], [place], [id number] Body Fluid Culton 09-16-2024 BFC Results called on 09/12/24-1023 by FOREST to [phone]. UNK UNK Copy of report sent to Infection Control Printer [id number] 09/14/24 0708 BRENDON. Body Fluid Cult MRSA RESULTS CALLED TO Mitra DANIEL 09/15/24 2787 Shanna Shook. REPORT READ BACK BY . Body Fluid Cult Body Fluid Cult Meth. resistant Staph. aureus Amount Growth 1+ mecA Testing not performed Meth. resistant Staph. aureus: REACTION cefOXitin Susc Islt POS Doxycycline Islt ESPERANZA <=0.5 Clindamycin Islt ESPERANZA 0.25 S Clindamycin.induced Susc Islt NEG Erythromycin Islt ESPERANZA <=0.25 S Gentamicin Islt ESPERANZA <=0.5 S Linezolid Islt ESPERANZA 2 S Moxifloxacin Islt ESPERANZA <=0.25 S Oxacillin Susc Islt R Tetracycline Islt ESPERANZA <=1 S TMP SMX Islt ESPERANZA <=10 S Vancomycin Islt ESPERANZA <=0.5 S Normal [facility] Comment on above: Performed By: #### M 600.2200, M600.2000, M100.3000, M300.2000, M300.3000, M100.2000, M100.4001 #### [facility] Laboratory [address] [place], [address] CBC W/Diff, Automatedon 08-31 Absolute Lymph 1.07 X10 3/uL Normal 0.83-4.51 [facility] Comment on above: Performed By: #### M 600.2200, M600.2000, M100.3000, M300.2000, M300.3000, M100.2000, M100.4001 #### [facility] Laboratory [address] [place], [address] Absolute Neut 7.1 X10 3/uL Normal 2.0-7.7 [facility] Comment on above: Performed By: #### M 600.2200, M600.2000, M100.3000, M300.2000, M300.3000, M100.2000, M100.4001 #### [facility] Laboratory [address] [place], [address] IG% 0.900 Normal 0.0-0.9 [facility] Comment on above: Result Comment: IG% - Immature Granulocytes (promyelocytes, myelocytes and metamyelocytes) > 1% indicates that a LEFT SHIFT is Present. Performed By: #### M 600.2200, M600.2000, M100.3000, M300.2000, M300.3000, M100.2000, M100.4001 #### [facility] Laboratory [address] [place], [address] Nucleated RBC (Bld) [#/Vol] 0 10*3/uL Normal 0-5 [facility] Comment on above: Performed By: #### M 600.2200, M600.2000, M100.3000, M300.2000, M300.3000, M100.2000, M100.4001 #### [facility] Laboratory [address] [place], [address] RDW SD 50.0 fl High 35.1-43.9 [facility] Comment on above: Performed By: #### M 600.2200, M600.2000, M100.3000, M300.2000, M300.3000, M100.2000, M100.4001 #### [facility] Laboratory [address] [place] [place], [address] Carbon dioxide, total [Moles /volume] in Central venous bloodOrdered By: Emili Lee on 09-16-2024 CO2 [Moles/Vol] 32.4 mmol/L High 21.0-32.0 [facility] Comment on above: Performed By: #### M 600.2200, M600.2000, M100.3000, M300.2000, M300.3000, M100.2000, M100.4001 #### [facility] Laboratory [address] [place], [address] Chloride assayOrdered By: Anna Lee on 09-16-2024 Chloride [Moles/Vol] 101 mmol/L Normal 98-108 [facility] Comment on above: Performed By: #### M 600.2200, M600.2000, M100.3000, M300.2000, M300.3000, M100.2000, M100.4001 #### [facility] Laboratory [address] [place], [address] Consultation - Infectious Dx on 09-16-2024 Consultation - Infectious Dx [facility] Medical Records Department [address] [place] [address] Consultation - Infectious Dx 09/16/24 1444 MR#: [id number] Acct: [id number] Name: OSCAR WOO Rep #: [id number] : 1950 74 From: Sixto Andrade MD PCP: Dr. Hernando Grimes MD Status:ADM IN Location: [facility]3 [id number] Assessment Plan Assessment/Plan (1) Infection and inflammatory reaction due to other internal joint prosthesis, initial encounter: PLAN: Aspiration cx with MRSA. Taken to OR 09/13/[address] Cavanaugh for revision; surg cx x2 with MSSA. On vanc, will continue. Picc in place. Plan is for iv vanc and po rifampin for 6 weeks with stop date 10/25/24 with weekly labs. After that, will need long course suppressive po abx. Counseled her that her home meds may be less effective while on rifampin. Also risk of liver dysfunction and reviewed potential signs. ID followup in 2 weeks. Will follow, thank you, wrote rx, d/w Dr. Cavanaugh on 09/13/24, d/w adult protective caseworker this AM HPI Consult Data Date of Consult: 09/16/24 HPI Narrative Reason for Consultation: PJI HPI Narrative: OSCAR WOO, is a 74 F who had L shoulder replacement about 7 years ago. Presented with one week new pain to L shoulder. No known inciting event. No fever or chills. No redness, swelling, or drainage. Pain was moderate, worse with movement. Had aspiration done as outpt, then admitted and taken to surgery 09/13/[address] Cavanaugh for revision. She is R handed. No n/v/d. Full ROS performed and neg except as noted above. [facility] Medical History MRSA (methicillin resistant staph aureus) culture positive Wears glasses Post-menopausal Depression Anxiety Walker as ambulation aid Ambulates with cane Arthritis High cholesterol Back pain Restless legs Former smoker Shortness of breath on exertion History of pain when walking History of edema Hypertension Home Medications ???Medication ???Instructions ???Recorded ???Last Taken ???Type losartan 50 mg tablet 50 mg PO BID BP 09/19/14 09/13/24 History melatonin 5 mg tablet 10 mg PO QHS INSOMNIA 09/19/14 Unk nown History indapamide 1.25 mg tablet 2.5 mg PO DAILY BP 04/12/17 Unknow n History pramipexole 0.5 mg tablet (Mirapex) 1 mg PO QHS RLS 04/12/17 Unknow n History bupropion HCl 300 mg 24 hr tablet, 150 mg PO DAILY DEPRESSION 06/1109/13/24 History extended release gabapentin 600 mg tablet 600 mg PO QHS SLEEP 06/11/20 Unkno wn History mirtazapine 15 mg tablet 15 mg PO QHS INSOMNIA 06/24/20 20:00 History amlodipine 10 mg tablet 5 mg PO BID BP 09/11/24 09/13/24 H istory duloxetine 30 mg capsule,delayed 30 mg PO DAILY DEPRESSION 09/11/24 09/13/24 History release (Cymbalta) pramipexole 0.5 mg tablet 0.5 mg PO DINNER RLS 09/11/24 Unkn own History rifampin 300 mg capsule 300 mg PO BID 39 days #78 caps Unknown Rx vancomycin 1 gram/200 mL in 1,000 mg IV Q24H 39 days #3,900 mL 09/16/24 Unknown Rx dextrose 5 % intravenous piggyback Allergy/AdvReac Type Severity Reaction Status Date / Time Penicillins Allergy Anaphylaxis Verified 09/13/24 12:05 Surgical History History of surgery Hx of colonoscopy Hx of right cataract extraction Hx of left cataract extraction History of partial colectomy Hx of appendectomy Hx of total hip arthroplasty Hx of total shoulder replacement Hx of lumbar discectomy Hx of total shoulder replacement Hx of total hip arthroplasty Social History Smoking Status: Former smoker Physical Exam Const alert, oriented x3 and no apparent distress General Appearance: cooperative HEENT normocephalic and head/scalp atraumatic Eyes PERRL and EOMs intact bilaterally Neck supple and No nodes Resp normal air movement and clear to auscultation bilaterally Cardio regular rate and regular rhythm GI soft to palpation, non-tender and non-distended Extremity General Extremity: Negative for edema Skin no rashes or lesions noted Skin Narrative: Picc in RUE, [facility] Neuro CN's II-XII intact bilaterally Lab / Micro Data Attestation: I reviewed the patient's lab results. 09/16/24 06:00 09/16/24 06:00 Labs: Laboratory Results - last 24 hr 09/16/24 06:00: WBC 9.2, RBC 3.69 L, Hgb 11.0 L, Hct 35.3 L, MCV 95.7, MCH 29.8, MCHC 31.2 L, RDW Std Deviation 50.0 H, RDW Coeff of Terry 14.3, Plt Count 261, MPV 9.4, Immature Gran % (Auto) 0.900, N eut % (Auto) 76.9 H, Lymph % (Auto) 11.6 L, [place] % (Auto) 7.0, Eos % (Auto) 3.2, Baso % (Auto) 0.4, Absolute Neuts (auto) 7.1, Absolute Lymphs (auto) 1.07, Nucleated RBC % 0, Sodium 140, Potassium 4.8, Chloride 101, Carbon Dioxide 32.4 H, Anion Gap 7, (more content not included)... Normal [facility] Electrocardiogram reportOrde red By: Tejal Holly on 09-16-2024 EKG study [facility] Cardiovascular Services [address] [place] [address] 12 Lead EKG 09/12/24 0804 MR#: [id number] Acct: [id number] Name: OSCAR WOO Rep #:[id number] : 1950 74 From: Tejal aquino MD Attending Dr: Dr. Fahad Cavanaugh MD Status: ADM IN Ordering Dr: Omar Walters MD Date: 08/31 01/24 Location: [facility] Sex: F C Admitted: 09/14/24 Test Reason : PREOP Blood Pressure : */* mmHG Vent. Rate : 87 BPM Atrial Rate : 87 BPM P-R Int : 224 ms QRS Dur : 108 ms QT Int : 376 ms P-R-T Axes : 63 59 93 degrees QTcB Int : 452 ms Sinus rhythm with 1st degree A-V block Nonspecific ST and T wave abnormality Abnormal ECG Confirmed by ELAYNE COTTER, MARIELENA ([id number]), editorial cartoonist TRINITY ORTIZ ([id number]) on09/16/2024 11:30:54 AM Referred By: Fahad Cavanaugh Confirmed By: MARIELENA HOLLY MD 09/16/24 1130 Date _ Tejal Holly MD CC: Dr. Omar Walters MD; Dr. Hernando Grimes MD; Dr. Fahad Cavanaugh MD ~ Signed [facility] Work Phone: Eosinophil percentageOrdered By: Emili Lee on 09-16-2024 Eosinophils/100 WBC (Bld) 3.2 % Normal 0-5 [facility] Comment on above: Performed By: #### M 600.2200, M600.2000, M100.3000, M300.2000, M300.3000, M100.2000, M100.4001 #### [facility] Laboratory [address] [place], [place], [phone] Erythrocyte distribution wid th ratioOrdered By: Emili Lee on 09-16-2024 Erythrocyte distribution width (RBC) [Ratio] 14.3 % Normal 11.6-14.6 [facility] Comment on above: Performed By: #### M 600.2200, M600.2000, M100.3000, M300.2000, M300.3000, M100.2000, M100.4001 #### [facility] Laboratory [address] [place], [place], [id number] Erythrocyte distribution wid th standard deviationOrdered By: Emili Lee on 09-16-2024 Erythrocyte distribution width (RBC) [Entitic vol] 50.0 fL High 35.1-43.9 [facility] Estimation of creatinine darrell aranceOrdered By: Emili Lee on 09-16-2024 Estimated Creatinine Clearance Calc 65.28 ml/min 50-250 [facility] GFR/1.73 sq M.predicted hans g non-blacks MDRD (S/P/Bld) [Vol rate/Area]Ordered By: Emili Lee on 09-16-2024 Estimated GFR (MDRD) Non-Af Amer 64 >60 [facility] Comment on above: mL/min/1.73m2 CKD-EP I Creatinine Equation (2020) Hemoglobin measurementOrdere d By: Emili Lee on 09-16-2024 Hemoglobin (Bld) [Mass/Vol] 11.0 g/dL Low 12.0-15.0 [facility] Comment on above: Performed By: #### M 600.2200, M600.2000, M100.3000, M300.2000, M300.3000, M100.1999, M1.4001 #### [facility] Laboratory [address] [place], [place], [phone] Immature granulocytes/100 WB C Auto (Bld)Ordered By: Emili Lee on 09-16-2024 Immature granulocytes/100 WBC (Bld) 0.900 % 0.0-0.9 [facility] Comment on above: IG% - Immature Granu locytes (promyelocytes, myelocytes and metamyelocytes) > 1% indicates that a LEFT SHIFT is Present. Lymphocytes Auto (Unsp spec) [#/Vol]Ordered By: Emili Lee on 09-16-2024 Lymphocytes (Bld) [#/Vol] 1.07 10*3/uL 0.83-4.51 [facility] MCV (mean corpuscular volume ) determinationOrdered By: Emili Lee on 09-16-2024 MCV (RBC) [Entitic vol] 95.7 fL Normal 81-99 [facility] Comment on above: Performed By: #### M 600.2200, M600.2000, M100.3000, M300.2000, M300.3000, M100.2000, M100.4001 #### [facility] Laboratory [address] [place], [place], [id number] Mean corpuscular hemoglobin (MCH) determinationOrdered By: Emili Lee on 09-16-2024 MCH (RBC) [Entitic mass] 29.8 pg Normal 27.0-32.0 [facility] Comment on above: Performed By: #### M 600.2200, M600.2000, M100.3000, M300.2000, M300.3000, M100.2000, M100.4001 #### [facility] Laboratory [address] [place], [place], [id number] Mean corpuscular hemoglobin concentration (MCHC) determinationOrdered By: Emili Lee on 09-16-2024 MCHC (RBC) [Mass/Vol] 31.2 g/dL Low 32-36 [facility] Comment on above: Performed By: #### M 600.2200, M600.2000, M100.3000, M300.2000, M300.3000, M100.2000, M100.4001 #### [facility] Laboratory [address] [place], [address] Mean platelet volume determi nationOrdered By: Emili Lee on 09-16-2024 Platelet mean volume (Bld) [Entitic vol] 9.4 fL Normal 6.2-12.0 [facility] Comment on above: Performed By: #### M 600.2200, M600.2000, M100.3000, M300.2000, M300.3000, M100.2000, M100.4001 #### [facility] Laboratory [address] [place] [place], [address] Monocyte percentageOrdered B y: Emili Lee on 09-16-2024 Monocytes/100 WBC (Bld) 7.0 % Normal 0-10 [facility] Comment on above: Performed By: #### M 600.2200, M600.2000, M100.3000, M300.2000, M300.3000, M100.2000, M100.4001 #### [facility] Laboratory [address] [place], [place], [id number] Neutrophil percentageOrdered By: Emili Lee on 09-16-2024 Neutrophils/100 WBC (Bld) 76.9 % High 47-70 [facility] Comment on above: Performed By: #### M 600.2200, M600.2000, M100.3000, M300.2000, M300.3000, M100.2000, M100.4001 #### [facility] Laboratory [address] [place], [place], [phone] Nucleated red blood cell per centageOrdered By: Emili Lee on 09-16-2024 Nucleated RBC/100 WBC (Bld) [Ratio] 0 % 0-5 [facility] Platelet countOrdered By: Anna Lee on 09-16-2024 Platelets (Bld) [#/Vol] 261 10*3/uL Normal 150-450 [facility] Comment on above: Performed By: #### M 600.2200, M600.2000, M100.3000, M300.2000, M300.3000, M100.2000, M100.4001 #### [facility] Laboratory [address] [place], [place], [id number] Potassium measurement (mass/ volume)Ordered By: Emili Lee on 09-16-2024 Potassium [Moles/Vol] 4.8 mmol/L Normal 3.3-5.1 [facility] Comment on above: Performed By: #### M 600.2200, M600.2000, M100.3000, M300.2000, M300.3000, M100.2000, M100.4001 #### [facility] Laboratory [address] [place], [place], [id number] Serum creatinine measurement (mass/volume)Ordered By: Emili Lee on 09-16-2024 Creatinine [Mass/Vol] 0.93 mg/dL Normal 0.70-1.20 [facility] Comment on above: Performed By: #### M 600.2200, M600.2000, M100.3000, M300.2000, M300.3000, M100.2000, M100.4001 #### [facility] Laboratory [address] [place], [address] Serum glucose measurement (m ass/volume)Ordered By: Emili Lee on 09-16-2024 Glucose [Mass/Vol] 108 mg/dL High 70-99 [facility] Comment on above: Performed By: #### M 600.2200, M600.2000, M100.3000, M300.2000, M300.3000, M100.2000, M100.4001 #### [facility] Laboratory [address] [place], [place], [id number] Serum or plasma calcium lisa urement (mass/volume)Ordered By: Emili Lee on 09-16-2024 Calcium [Mass/Vol] 8.9 mg/dL Normal 7.6-11.0 [facility] Comment on above: Performed By: #### M 600.2200, M600.2000, M100.3000, M300.2000, M300.3000, M100.2000, M100.4001 #### [facility] Laboratory [address] [place], [place], [id number] Serum or plasma urea nitroge n measurement (mass/volume)Ordered By: Emili Lee on 09-16-2024 Urea nitrogen [Mass/Vol] 24 mg/dL High 4-19 [facility] Comment on above: Performed By: #### M 600.2200, M600.2000, M100.3000, M300.2000, M300.3000, M100.2000, M100.4001 #### [facility] Laboratory [address] [place], [place], [id number] Sodium levelOrdered By: Stephen Lee on 09-16-2024 Sodium [Moles/Vol] 140 mmol/L Normal 133-145 [facility] Comment on above: Performed By: #### M 600.2200, M600.2000, M100.3000, M300.2000, M300.3000, M100.2000, M100.4001 #### [facility] Laboratory [address] [place], [place], [id number] Vancomycin [Mass/Vol]Ordered By: Fahad Cavanaugh on 09-16-2024 Random Vancomycin Level 14.4 ug/mL 0.0-15.0 [facility] Comment on above: VANCOMYCIN STANDARD DRUG THERAPY: CRITICAL VALUE IS > 15.0 mg/L VANCOMYCIN HIGH INTENSITY THERAPY: CRITICAL VALUE IS > 20.0 mg/L PLEASE CONTACT PHARMACY SERVICES (#[id number]) FOR INTERPRETATIONOF RESULTS. THIS RESULT DOES NOT REPRESENT A PEAK OR TROUGHLEVEL FOR THIS DRUG. Vancomycin, Random Levelon 0 09-16-2024 VANCO, RANDOM 14.4 ug/mL Normal 0.0-15.0 [facility] Comment on above: Result Comment: VANC OMYCIN STANDARD DRUG THERAPY: CRITICAL VALUE IS > 15.0 mg/L VANCOMYCIN HIGH INTENSITY THERAPY: CRITICAL VALUE IS > 20.0 mg/L PLEASE CONTACT PHARMACY SERVICES (#[id number]) FOR INTERPRETATION OF RESULTS. THIS RESULT DOES NOT REPRESENT A PEAK OR TROUGH LEVEL FOR THIS DRUG. Performed By: #### M 600.2200, M600.2000, M100.3000, M300.2000, M300.3000, M100.2000, M100.4001 #### [facility] Laboratory [address] [place], [place], [address] White blood cell (WBC) count Ordered By: Emili Lee on 09-16-2024 WBC (Bld) [#/Vol] 9.2 10*3/uL Normal 4.4-11.0 [facility] Comment on above: Performed By: #### M 600.2200, M600.2000, M100.3000, M300.2000, M300.3000, M100.2000, M100.4001 #### [facility] Laboratory [address] [place], [place], [address] Wound Cultureon 09-16-2024 WC UNK UNK Left Humeral Membrane - collected in OR Wound Culture Wound Culture Wound Culture Staphylococcus aureus Amount Growth 2+ Staphylococcus aureus: REACTION cefOXitin Susc Islt Doxycycline Islt ESPERANZA <=0.5 S Clindamycin Islt ESPERANZA 0.25 S Clindamycin.induced Susc Islt NEG Erythromycin Islt ESPERANZA <=0.25 S Gentamicin Islt ESPERANZA <=0.5 S Linezolid Islt ESPERANZA 2 S Moxifloxacin Islt ESPERANZA <=0.25 S Oxacillin Susc Islt 0.5 S Tetracycline Islt ESPERANZA <=1 S TMP SMX Islt ESPERANZA <=10 S Vancomycin Islt ESPERANZA 1 S Normal [facility] Comment on above: Performed By: #### M 100.3000, M600.2200, M100.4001, M600.2000, M300.2000, M300.3000, M100.2000 #### [facility] Laboratory [address] [place], [place], [id number] WC UNK UNK Left Posterior Synovium - collected in OR Wound Culture Wound Culture Staphylococcus aureus Amount Growth 2+ Staphylococcus aureus: REACTION cefOXitin Susc Islt Doxycycline Islt ESPERANZA <=0.5 S Clindamycin Islt ESPERANZA 0.25 S Clindamycin.induced Susc Islt NEG Erythromycin Islt ESPERANZA <=0.25 S Gentamicin Islt ESPERANZA <=0.5 S Linezolid Islt ESPERANZA 2 S Moxifloxacin Islt ESPERANZA <=0.25 S Oxacillin Susc Islt 0.5 S Tetracycline Islt ESPERANZA <=1 S TMP SMX Islt ESPERANZA <=10 S Vancomycin Islt ESPERANZA 1 S Normal [facility] Comment on above: Performed By: #### M 600.2200, M600.2000, M100.3000, M300.2000, M300.3000, M100.2000, M100.4001 #### [facility] Laboratory [address] [place], [place], [id number] WC UNK UNK Left Glenosphere Membrane - collected in OR Wound Culture Wound Culture Staphylococcus aureus Amount Growth Rare Staphylococcus aureus: REACTION cefOXitin Susc Islt Doxycycline Islt ESPERANZA <=0.5 S Clindamycin Islt ESPERANZA 0.25 S Clindamycin.induced Susc Islt NEG Erythromycin Islt ESPERANZA <=0.25 S Gentamicin Islt ESPERANZA <=0.5 S Linezolid Islt ESPERANZA 2 S Moxifloxacin Islt ESPERANZA <=0.25 S Oxacillin Susc Islt 0.5 S Tetracycline Islt ESPERANZA <=1 S TMP SMX Islt ESPERANZA <=10 S Vancomycin Islt ESPERANZA <=0.5 S Normal [facility] Comment on above: Performed By: #### M 600.2200, M600.2000, M100.3000, M300.2000, M300.3000, M100.2000, M100.4001 #### [facility] Laboratory [address] [place], [address] Basic Metabolic Profile (BMP )on 09-15-2024 BUN/CRE 29.0 RATIO High 10-20 [facility] Comment on above: Performed By: #### M 600.2200, M600.2000, M100.3000, M300.2000, M300.3000, M100.2000, M100.4001 #### [facility] [address] [place], [address] Calcium [Mass/Vol] 8.4 mg/dL Normal 7.6-11.0 [facility] Comment on above: Performed By: #### M 600.2200, M600.2000, M100.3000, M300.2000, M300.3000, M100.2000, M100.4001 #### [facility] [address] [place], [address] Chloride [Moles/Vol] 99 mmol/L Normal 98-108 [facility] Comment on above: Performed By: #### M 600.2200, M600.2000, M100.3000, M300.2000, M300.3000, M100.2000, M100.4001 #### [facility] [address] [place], [address] CO2 [Moles/Vol] 24.7 mmol/L Normal 21.0-32.0 [facility] Comment on above: Performed By: #### M 600.2200, M600.2000, M100.3000, M300.2000, M300.3000, M100.2000, M100.4001 #### [facility] [address] [place], [address] Creatinine [Mass/Vol] 1.12 mg/dL Normal 0.70-1.20 [facility] Comment on above: Performed By: #### M 600.2200, M600.2000, M100.3000, M300.2000, M300.3000, M100.2000, M100.4001 #### [facility] [address] [place], [address] ECRCL 54.21 ml/min Normal 50-250 [facility] Comment on above: Performed By: #### M 600.2200, M600.2000, M100.3000, M300.2000, M300.3000, M100.2000, M100.4001 #### [facility] [address] [place], [address] GAP 11 Normal 5-15 [facility] Comment on above: Performed By: #### M 600.2200, M600.2000, M100.3000, M300.2000, M300.3000, M100.2000, M100.4001 #### [facility] [address] [place], [address] GFR/1.73 sq M.predicted among non-blacks MDRD (S/P/Bld) [Vol rate/Area] 51 mL/min/{1.73_m2} Low >60 [facility] Comment on above: Result Comment: mL/m in/1.73m2 CKD-EPI Creatinine Equation (2020) Performed By: #### M 600.2200, M600.2000, M100.3000, M300.2000, M300.3000, M100.2000, M100.4001 #### [facility] [address] [place], [address] Glucose [Mass/Vol] 100 mg/dL High 70-99 [facility] Comment on above: Performed By: #### M 600.2200, M600.2000, M100.3000, M300.2000, M300.3000, M100.2000, M100.4001 #### [facility] [address] [place], [address] Potassium [Moles/Vol] 4.1 mmol/L Normal 3.3-5.1 [facility] Comment on above: Result Comment: Hemo lysis present, Results??could be affected. ?? Performed By: #### M 600.2200, M600.2000, M100.3000, M300.2000, M300.3000, M100.2000, M100.4001 #### [facility] [address] [place], [address] Sodium [Moles/Vol] 135 mmol/L Normal 133-145 [facility] Comment on above: Performed By: #### M 600.2200, M600.2000, M100.3000, M300.2000, M300.3000, M100.2000, M100.4001 #### [facility] [address] [place], [address] Urea nitrogen [Mass/Vol] 33 mg/dL High 4-19 [facility] Comment on above: Performed By: #### M 600.2200, M600.2000, M100.3000, M300.2000, M300.3000, M100.2000, M100.4001 #### [facility] [address] [place], [address] CBC-Complete Blood Cnt No Di ffon 09-15-2024 Erythrocyte distribution width (RBC) [Ratio] 14.1 % Normal 11.6-14.6 [facility] Comment on above: Performed By: #### M 600.2200, M600.2000, M100.3000, M300.2000, M300.3000, M100.2000, M100.4001 #### [facility] [address] [place], [address] Hematocrit (Bld) [Volume fraction] 36.4 % Low 37-47 [facility] Comment on above: Performed By: #### M 600.2200, M600.2000, M100.3000, M300.2000, M300.3000, M100.2000, M100.4001 #### [facility] [address] [place], [address] Hemoglobin (Bld) [Mass/Vol] 11.5 g/dL Low 12.0-15.0 [facility] Comment on above: Performed By: #### M 600.2200, M600.2000, M100.3000, M300.2000, M300.3000, M100.2000, M100.4001 #### [facility] [address] [place], [address] MCH (RBC) [Entitic mass] 29.4 pg Normal 27.0-32.0 [facility] Comment on above: Performed By: #### M 600.2200, M600.2000, M100.3000, M300.2000, M300.3000, M100.2000, M100.4001 #### [facility] [address] [place], [address] MCHC (RBC) [Mass/Vol] 31.6 g/dL Low 32-36 [facility] Comment on above: Performed By: #### M 600.2200, M600.2000, M100.3000, M300.2000, M300.3000, M100.2000, M100.4001 #### [facility] [address] [place], [address] MCV (RBC) [Entitic vol] 93.1 fL Normal 81-99 [facility] Comment on above: Performed By: #### M 600.2200, M600.2000, M100.3000, M300.2000, M300.3000, M100.2000, M100.4001 #### [facility] [address] [place], [address] Platelet mean volume (Bld) [Entitic vol] 10.0 fL Normal 6.2-12.0 [facility] Comment on above: Performed By: #### M 600.2200, M600.2000, M100.3000, M300.2000, M300.3000, M100.2000, M100.4001 #### [facility] [address] [place], [address] Platelets (Bld) [#/Vol] 238 10*3/uL Normal 150-450 [facility] Comment on above: Performed By: #### M 600.2200, M600.2000, M100.3000, M300.2000, M300.3000, M100.2000, M100.4001 #### [facility] [address] [place], [address] RBC (Bld) [#/Vol] 3.91 10*6/uL Low 4.2-5.4 [facility] Comment on above: Performed By: #### M 600.2200, M600.2000, M100.3000, M300.2000, M300.3000, M100.2000, M100.4001 #### [facility] [address] [place], [address] RDW SD 48.1 fl High 35.1-43.9 [facility] Comment on above: Performed By: #### M 600.2200, M600.2000, M100.3000, M300.2000, M300.3000, M100.2000, M100.4001 #### [facility] [address] [place], [address] WBC (Bld) [#/Vol] 9.6 10*3/uL Normal 4.4-11.0 [facility] Comment on above: Performed By: #### M 600.2200, M600.2000, M100.3000, M300.2000, M300.3000, M100.2000, M100.4001 #### [facility] [address] [place], [address] Chest PA and Lateralon 09-15 Chest PA and Lateral [facility] Imaging Services [address] [place], [place] [address] Chest PA and Lateral MR#: [id number] Acct: [id number] Name: OSCAR WOO Rep #: [id number] : 1950 F 74 From: Sixto Kendrick PCP: Dr. Hernando Grimes MD Status: ADM IN Study: Chest PA and Lateral Date of Exam: 09/15/24 Exam# [id number] Ordering Dr: Emili Lee MD PROCEDURE: Chest radiographs REASON FOR EXAM: Hypoxia TECHNIQUE: Two views of the chest COMPARISON: 07/15/2021 FINDINGS: Cardiomediastinal silhouette is within normal limits. Unchanged coarse interstitial lung markings predominantly at the lung bases. No focal consolidation, pleural effusion or sizable pneumothorax. Emphysema. Right PICC line catheter in place. Bilateral shoulder prostheses. RAD/Chest PA and Lateral IMPRESSION: No acute airspace abnormality. Probable chronic interstitial changes at the lung bases. Reading Location: [facility] CC: Dr. Hernando Grimes MD; Dr. Emili Lee MD Video Manager: Signed Normal [facility] M100.019on 09-15-2024 M100.019 Negative Normal [facility] Comment on above: Performed By: #### M 100.3000, M600.2200, M100.4001, M600.2000, M300.2000, M300.3000, M100.2000 #### [facility] [address] [place], [place], [address] RESPIRATORY PANEL MOLECULARo n 09-15-2024 RP PANEL ADENOVIRUS Not Detected INFLUENZA A Not Detected INFLUENZA A (SUBTYPE H1) Not Detected INFLUENZA A (SUBTYPE H3) Not Detected INFLUENZA B Not Detected HUMAN METAPHNEUMO Not Detected PARAINFLUENZA 1 Not Detected PARAINFLUENZA 2 Not Detected PARAINFLUENZA 3 Not Detected PARAINFLUENZA 4 Not Detected RHINOVIRUS Not Detected RSV A Not Detected RSV B Not Detected Normal [facility] Comment on above: Performed By: #### M 100.3000, M600.2200, M100.4001, M600.2000, M300.2000, M300.3000, M100.2000 #### [facility] [address] [place], [address] Respiratory pathogens DNA an d RNA panel RANJIT+probe (Resp)Ordered By: Emili Lee on 09-15-2024 Respiratory Panel (PCR) [facility] [id number] By: Emili Lee on 09-15-2024 SARS-CoV-2 (COVID-19) RNA RANJIT+probe Ql (Unsp spec) [facility] Vancomycin, Trough Levelon 0 09-15-2024 VANCO, TROUGH 22.8 ug/mL High 5.0-15.0 [facility] Comment on above: Order Comment: Comme nts: DRAW 30 MIN PRIOR TO [id number] Result Comment: Zackery mmended goal trough ranges are generally 10-15 mcg/ml for less severe/complicated infections such as cellulitis or UTI and 15-20 mcg/ml for more severe/complicated infections such as bacteremia/sepsis, osteomyelitis, pneumonia or meningitis. Goal trough ranges should take into account indication, patient-specific factors and organism ESPERANZA. VANCOMYCIN STANDARED DRUG THERAPY TROUGH LEVEL: 5.0 - 15.0 mg/L VANCOMYCIN HIGH INTENSITY THERAPY TROUGH LEVEL: 15.0 - 20.0 mg/L High Intensity therapy recommended for serious life threatening infections include: - Meningitis -Endocarditis -Pneumonia (Ventilator/Healtcare Associated) -Sepsis PLEASE CONTACT PHARMACY SERVICES (#[phone]) FOR INTERPRETATION OF RESULTS. Performed By: #### M 600.2200, M600.2000, M100.3000, M300.2000, M300.3000, M100.2000, M100.4001 #### [facility] [address] [place], [address] Basic Metabolic Profile (BMP )on 09-14-2024 BUN/CRE 18.8 RATIO Normal - [facility] Comment on above: Performed By: #### M 600.2200, M600.2000, M100.3000, M300.2000, M300.3000, M100.2000, M100.4001 #### [facility] [address] [place], [address] Calcium [Mass/Vol] 8.3 mg/dL Normal 7.6-11.0 [facility] Comment on above: Performed By: #### M 600.2200, M600.2000, M100.3000, M300.2000, M300.3000, M100.2000, M100.4001 #### [facility] [address] [place], [address] Chloride [Moles/Vol] 93 mmol/L Low 98-108 [facility] Comment on above: Performed By: #### M 600.2200, M600.2000, M100.3000, M300.2000, M300.3000, M100.2000, M100.4001 #### [facility] [address] [place], [address] CO2 [Moles/Vol] 26.4 mmol/L Normal 21.0-32.0 [facility] Comment on above: Performed By: #### M 600.2200, M600.2000, M100.3000, M300.2000, M300.3000, M100.2000, M100.4001 #### [facility] [address] [place], [address] Creatinine [Mass/Vol] 1.28 mg/dL High 0.70-1.20 [facility] Comment on above: Performed By: #### M 600.2200, M600.2000, M100.3000, M300.2000, M300.3000, M100.2000, M100.4001 #### [facility] [address] [place], [address] ECRCL 47.43 ml/min Low 50-250 [facility] Comment on above: Performed By: #### M 600.2200, M600.2000, M100.3000, M300.2000, M300.3000, M100.2000, M100.4001 #### [facility] [address] [place], [address] GAP 12 Normal 5-15 [facility] Comment on above: Performed By: #### M 600.2200, M600.2000, M100.3000, M300.2000, M300.3000, M100.2000, M100.4001 #### [facility] [address] [place], [address] GFR/1.73 sq M.predicted among non-blacks MDRD (S/P/Bld) [Vol rate/Area] 44 mL/min/{1.73_m2} Low >60 [facility] Comment on above: Result Comment: mL/m in/1.73m2 CKD-EPI Creatinine Equation (2020) Performed By: #### M 600.2200, M600.2000, M100.3000, M300.2000, M300.3000, M100.2000, M100.4001 #### [facility] [address] [place], [address] Glucose [Mass/Vol] 111 mg/dL High 70-99 [facility] Comment on above: Performed By: #### M 600.2200, M600.2000, M100.3000, M300.2000, M300.3000, M100.2000, M100.4001 #### [facility] [address] [place], [address] Potassium [Moles/Vol] 4.0 mmol/L Normal 3.3-5.1 [facility] Comment on above: Performed By: #### M 600.2200, M600.2000, M100.3000, M300.2000, M300.3000, M100.2000, M100.4001 #### [facility] [address] [place], [address] Sodium [Moles/Vol] 131 mmol/L Low 133-145 [facility] Comment on above: Performed By: #### M 600.2200, M600.2000, M100.3000, M300.2000, M300.3000, M100.2000, M100.4001 #### [facility] [address] [place], [address] Urea nitrogen [Mass/Vol] 24 mg/dL High 4-19 [facility] Comment on above: Performed By: #### M 600.2200, M600.2000, M100.3000, M300.2000, M300.3000, M100.2000, M100.4001 #### [facility] [address] [place], [address] CBC-Complete Blood Cnt No Di ffon 09-14-2024 Erythrocyte distribution width (RBC) [Ratio] 14.0 % Normal 11.6-14.6 [facility] Comment on above: Performed By: #### M 600.2200, M600.2000, M100.3000, M300.2000, M300.3000, M100.2000, M100.4001 #### [facility] [address] [place], [address] Hematocrit (Bld) [Volume fraction] 32.5 % Low 37-47 [facility] Comment on above: Performed By: #### M 600.2200, M600.2000, M100.3000, M300.2000, M300.3000, M100.2000, M100.4001 #### [facility] [address] [place], [address] Hemoglobin (Bld) [Mass/Vol] 10.2 g/dL Low 12.0-15.0 [facility] Comment on above: Performed By: #### M 600.2200, M600.2000, M100.3000, M300.2000, M300.3000, M100.2000, M100.4001 #### [facility] [address] [place], [address] MCH (RBC) [Entitic mass] 29.6 pg Normal 27.0-32.0 [facility] Comment on above: Performed By: #### M 600.2200, M600.2000, M100.3000, M300.2000, M300.3000, M100.2000, M100.4001 #### [facility] [address] [place], [address] MCHC (RBC) [Mass/Vol] 31.4 g/dL Low 32-36 [facility] Comment on above: Performed By: #### M 600.2200, M600.2000, M100.3000, M300.2000, M300.3000, M100.2000, M100.4001 #### [facility] [address] [place], [address] MCV (RBC) [Entitic vol] 94.2 fL Normal 81-99 [facility] Comment on above: Performed By: #### M 600.2200, M600.2000, M100.3000, M300.2000, M300.3000, M100.2000, M100.4001 #### [facility] [address] [place] [place], [address] Platelet mean volume (Bld) [Entitic vol] 10.1 fL Normal 6.2-12.0 [facility] Comment on above: Performed By: #### M 600.2200, M600.2000, M100.3000, M300.2000, M300.3000, M100.2000, M100.4001 #### [facility] [address] [place], [address] Platelets (Bld) [#/Vol] 239 10*3/uL Normal 150-450 [facility] Comment on above: Performed By: #### M 600.2200, M600.2000, M100.3000, M300.2000, M300.3000, M100.2000, M100.4001 #### [facility] [address] [place], [address] RBC (Bld) [#/Vol] 3.45 10*6/uL Low 4.2-5.4 [facility] Comment on above: Performed By: #### M 600.2200, M600.2000, M100.3000, M300.2000, M300.3000, M100.2000, M100.4001 #### [facility] [address] [place], [address] RDW SD 48.3 fl High 35.1-43.9 [facility] Comment on above: Performed By: #### M 600.2200, M600.2000, M100.3000, M300.2000, M300.3000, M100.2000, M100.4001 #### [facility] [address] [place], [address] WBC (Bld) [#/Vol] 11.3 10*3/uL High 4.4-11.0 [facility] Comment on above: Performed By: #### M 600.2200, M600.2000, M100.3000, M300.2000, M300.3000, M100.2000, M100.4001 #### [facility] [address] [place], [address] Gram Stainon 09-14-2024 GS UNK UNK Left Glenosphere Membrane - collected in [place] Gram Stain Very Rare Gram positive cocci 1+ White Blood Cells Normal [facility] Comment on above: Performed By: #### M 600.2200, M600.2000, M100.3000, M300.2000, M300.3000, M100.2000, M100.4001 #### [facility] [address] [place], [address] GS UNK UNK Left Posterior Synovium - collected in [place] Gram Stain Very Rare Gram positive cocci Normal [facility] Comment on above: Performed By: #### M 600.2200, M600.2000, M100.3000, M300.2000, M300.3000, M100.2000, M100.4001 #### [facility] [address] [place], [address] GS UNK UNK Left Humeral Membrane - collected in [place] Gram Stain 4+ Gram positive cocci in clusters Normal [facility] Comment on above: Performed By: #### M 100.3000, M600.2200, M100.4001, M600.2000, M300.2000, M300.3000, M100.2000 #### [facility] [address] [place], [address] Bacteria identified Anaer cx Nom (Unsp spec)Ordered By: Fahad Cavanaugh on 09-13-2024 Anaerobic Culture No anaerobic bacteria isolated. [facility] Bedside Glucoseon 09-13-2024 FINGERSTICK GLU 88 mg/dL Normal 74-106 [facility] Comment on above: Result Comment: ROSA ISELA GUSENT OF PATIENT CARE PER NURSING PROTOCOL Performed By: #### M 600.2200, M600.2000, M100.3000, M300.2000, M300.3000, M100.2000, M100.4001 #### [facility] [address] [place], [address] Blood cultureOrdered By: Jonathan Cavanaugh on 09-13-2024 Bacteria identified Cx Nom (Bld) No growth in 5 days. [facility]Ordered By: Fahad Cavanaugh on 09-13-2024 Bedside Glucose (Misc Panel) 88 mg/dL 74-106 [facility] Comment on above: MANAGEMENT OF PATIEN T CARE PER NURSING PROTOCOL Gram stainOrdered By: Fahad Cavanaugh on 09-13-2024 Microscopic observation Gram stain Nom (Unsp spec) [facility] MR/POSTOP.ANEon 09-13-2024 MR/POSTOP.ANE [facility] Medical Records Department [address] [place] [address] Anesthesia Postop Eval I 09/13/24 1711 MR#: [id number] Acct: [id number] Name: OSCAR WOO Rep #: [id number] : 1950 74 From: Doug Urias CRNA PCP: Dr. Hernando Grimes MD Status:ADM NATE Y Race: C [facility]: Postop Eval I Current Vital Signs Temperature: 97 F Pulse Rate: 80 Blood Pressure: 114/75 Respiratory Rate: 22 Pulse Ox: 95 Oxygen Delivery Method: Non-Rebreather Oxygen Flow Rate (L/min): 10 Assessment Airway patent: Yes Spontaneous unlabored respirations: Yes Mental status: Calm nausea: No Vomiting: No Anesthesia Complication: No Fluid Hydration Crystalloid volume administer (ml): 2,000 Total IV fluid infused: 2,000 Progress Note Anesthesia document: Postop Eval 1 completed: Yes 09/13/24 171 Date Doug Bridgett [employer] Cosigner Signature: Date CC: Signed Normal [facility] [id number] 09-13-2024 [facility] Medical Records Department [address] [place] [address] Anesthesia Postop Eval II 09/13/241909 MR#: [id number] Acct: [id number] Name: OSCAR WOO Rep #: [id number] : 1950 74 From: Omar Walters MD PCP: Dr. Hernando Grimes MD Status:ADM NATE Y Race: C Location: [facility] [id number] Anesthesia Postop Eval I Sum Postop Eval Completion status Anesthesia document: Postop Eval 1 completed: Yes Anesthesia Postop Eval I Summary Anesthesia Postop Eval I Summary: Anesthesia Postop Eval I: Assessment Summary Airway patent Yes 09/13/24 17:12 [employer] INS[employer].TNES Spontaneous unlabored Yes 09/13/24 17:12 [employer].TNES respirations Mental status Calm 09/13/24 17:12 [employer].TNES nausea No 09/13/24 17:12 [employer].TNES Vomiting No 09/13/24 17:12 [employer].TNES Anesthesia Postop Eval I: Fluid Summary Crystalloid volume administer 2,000 09/13/24 17:12 [employer] INSPECTOR.TNES (ml) Colloids volume administered ( ml) Blood Product volume administered (ml) Total IV fluid infused 2,000 09/13/24 17:12 [employer] INS[employer].TNES Anesthesia Postop Eval I: Summary Notes Anesthesia Complication No 09/13/24 17:12 [employer] INS[employer].TNES Anesthesia Complication Comment: Post-operative progress note Anesthesia: Postop Eval II Evaluation Mental status: Awake Pain Level: 1 nausea: No Vomiting: No 09/13/24 1910 Date Omar Herndon Signature: Date CC: Signed Normal [facility] MRSA/SAID NASAL SCREENon MRSA+SAID SCRN Reason for Exam: PREOP MRSA MRSA Negative S. AUREUS S. aureus PositiveA Normal [facility] Comment on above: Performed By: #### M 600.2200, M600.2000, M100.3000, M300.2000, M300.3000, M100.2000, M100.4001 #### [facility] Laboratory [address] [facility] [place], [address] Operative Reporton 5 Operative Report [facility] Medical Records Department [address] [place] [address] Operative Report 09/13/24 1620 MR#: [id number] Acct: [id number] Name: OSCAR WOO Rep #: [id number] : 1950 74 From: Fahad Cavanaugh MD PCP: Dr. 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: Yes Concierge: Odilon Pickett Tasks completed by training program assistant: Other (See body of operative report) Additional sourcing assistant?: No Type of Anesthesia: General RN Documented Start/Stop Times: Operation Date: 09/13/24 13:30 Case Time Into Pre-Op 09/13/24 11:38 Anesthesia Start 09/13/24 14:13 Into Room 09/13/24 14:13 Procedure Start 09/13/24 15:09 Procedure End 09/13/24 16:48 Anesthesia End 09/13/24 16:58 Out of Room 09/13/24 16:58 Into Recovery 09/13/24 17:03 Out of Recovery 09/13/24 18:05 Procedure Start Time: 15:09 Procedure Stop Time: 16:48 Select all DRAINS/GRAFTS/IMPLAN TS that apply: Prosthetic device Prosthetic device details: [employer] total shoulder 42 mm glenosphere, 42 mm +0 mm polyethylene, 42 mm humeral baseplate Special Medications: Cleocin and vancomycin were given after blood cultures were obtained. Estimated Blood Loss: 150 ml Fluids Replaced: 2000 mL crystalloid Specimen collected: Yes Description of specimen(s) removed: 3 separate specimens were sent to microbiology Description of surgery: On the date of the surgery patient was seen and evaluated in the preoperative area. Case was discussed with infectious disease who recommended we obtain blood cultures. Patient was signed on the left shoulder in the preoperative area. They were then taken back to the operating room where their transfer the table in the supine position. Anesthesia did address patient's hypotension. Based on the infection we did elect to proceed with surgery as this may be causing some of her hypotension. Anesthesia assumed control of the C-spine and airway and remained in control throughout the remainder the procedure. Anesthesia administered anesthetic and patient was positioned in the beachchair position with all bony prominences identified and well-padded and the head secured beachchair table. Once patient was adequately positioned left upper extremity was prepped in a sterile fashion while the surgeon scrubbed. Upon entering the room the left upper extremity was then draped in the sterile fashion, incision was marked out and timeout was called. Upon agreed upon the side, the site, the procedure to be performed, patient's identity and antibiotics given. Incision was taken down through skin subtenons tissue fat down the fascia. Once we got to the fascia we obtained hemostasis. We then were able to identify the cephalic vein and the deltopectoral interval. This was bluntly dissected once we are able to do this deltoid retractor was placed underneath the deltoid. Makenzie retractor was then placed in the wound and the arthrotomy was made. Once we made the arthrotomy gross purulent fluid copious amounts of it were suctioned from the joint. Once was done the humerus was released anteriorly so that we get dislocated and the she 1 was placed into the joint and the humerus was dislocated. The polyethylene was removed. Membrane was taken from behind the polyethylene. The baseplate was removed and membrane was taken from this. Posterior synovium was removed and sent for culture as well. Once was done the humerus was retracted out of the way further synovectomy was performed. We then remove the screw from the glenosphere and the glenosphere was dissociated from the baseplate. Once was done the Screws were removed from the baseplate. Membrane was also removed and the baseplate separate culture. Wound was further debrided of any synovectomy however inferior portion where there is significant neurovascular structures was carefully treated. Once a synovectomy was completed the wound is copiously irrigated out with 6 L normal saline under low-pressure lavage. We then irrigated out the joint with pulse lavage further to do any further debris. Any further debris was removed. Implants were opened on the back table. 42 mm glenosphere was then put into place screw was tightened this was done after replacing the 4 Screws with new Screws. Once this was tightened down and secured it was tested. We then exposed the humerus humeral baseplate was screwed into place with torque limiting screw. Polyethylene was impacted into place. Shoulder was reduced. Shoulder was taken through range of m (more content not included)... Normal [facility] Routine wound cultureOrdered By: Fahad Cavanaugh on 09-13-2024 Wound Culture Staphylococcus aureus Abnormal [facility] Shoulder min 2 Viewson 09-13 Shoulder min 2 Views [facility] Imaging Services [address] [place] [address] Shoulder min 2 Views MR#: [id number] Acct: [id number] Name: WOOOSCAR Rep #: [id number] : 1950 F 74 From: Kalyan dowling MD PCP: Dr. Hernando Grimes MD Status: ADM NATE Study: Shoulder min 2 Views Date of Exam: 09/13/24 Exam# [id number] Ordering Dr: Fahad Cavanaugh MD PROCEDURE: SHOULDER MIN 2 VIEWS REASON FOR EXAM: POST OP TECHNIQUE: Two views of the left shoulder COMPARISON: None. FINDINGS: Status post left shoulder arthroplasty. Hardware is intact. No acute fracture or dislocation. Mild degenerative changes of the acromioclavicular joint. RAD/Shoulder min 2 Views IMPRESSION: See above Reading Location: [facility] CC: Dr. Hernando Grimes MD; Dr. Fahad Cavanaugh MD Video Manager: Signed Normal [facility] CBC-Complete Blood Cnt No Di ffon 09-12-2024 Erythrocyte distribution width (RBC) [Ratio] 13.7 % Normal 11.6-14.6 [facility] Comment on above: Performed By: #### M 600.2200, M600.2000, M100.3000, M300.2000, M300.3000, M100.2000, M100.4001 #### [facility] Laboratory [address] [place], [address] Hematocrit (Bld) [Volume fraction] 37.2 % Normal 37-47 [facility] Comment on above: Performed By: #### M 600.2200, M600.2000, M100.3000, M300.2000, M300.3000, M100.2000, M100.4001 #### [facility] [address] [place], [address] Hemoglobin (Bld) [Mass/Vol] 12.2 g/dL Normal 12.0-15.0 [facility] Comment on above: Performed By: #### M 600.2200, M600.2000, M100.3000, M300.2000, M300.3000, M100.2000, M100.4001 #### [facility] Laboratory [address] [place], [address] MCH (RBC) [Entitic mass] 30.0 pg Normal 27.0-32.0 [facility] Comment on above: Performed By: #### M 600.2200, M600.2000, M100.3000, M300.2000, M300.3000, M100.2000, M100.4001 #### [facility] Laboratory [address] [place], [address] MCHC (RBC) [Mass/Vol] 32.8 g/dL Normal 32-36 [facility] Comment on above: Performed By: #### M 600.2200, M600.2000, M100.3000, M300.2000, M300.3000, M100.2000, M100.4001 #### [facility] Laboratory [address] [place], [address] MCV (RBC) [Entitic vol] 91.6 fL Normal 81-99 [facility] Comment on above: Performed By: #### M 600.2200, M600.2000, M100.3000, M300.2000, M300.3000, M100.2000, M100.4001 #### [facility] [address] [place], [address] Platelet mean volume (Bld) [Entitic vol] 10.1 fL Normal 6.2-12.0 [facility] Comment on above: Performed By: #### M 600.2200, M600.2000, M100.3000, M300.2000, M300.3000, M100.2000, M100.4001 #### [facility] [address] [place], [address] Platelets (Bld) [#/Vol] 230 10*3/uL Normal 150-450 [facility] Comment on above: Performed By: #### M 600.2200, M600.2000, M100.3000, M300.2000, M300.3000, M100.2000, M100.4001 #### [facility] [address] [place], [address] RBC (Bld) [#/Vol] 4.06 10*6/uL Low 4.2-5.4 [facility] Comment on above: Performed By: #### M 600.2200, M600.2000, M100.3000, M300.2000, M300.3000, M100.2000, M100.4001 #### [facility] Laboratory [address] [place], [address] RDW SD 47.1 fl High 35.1-43.9 [facility] Comment on above: Performed By: #### M 600.2200, M600.2000, M100.3000, M300.2000, M300.3000, M100.2000, M100.4001 #### [facility] Laboratory [address] [place], [address] WBC (Bld) [#/Vol] 10.0 10*3/uL Normal 4.4-11.0 [facility] Comment on above: Performed By: #### M 600.2200, M600.2000, M100.3000, M300.2000, M300.3000, M100.2000, M100.4001 #### [facility] Laboratory [address] [place], [address] Gram Stainon 09-12-2024 GS Results called on 09/12/241023 by FOREST to [phone]. UNK UNK Test not performed Normal [facility] Comment on above: Performed By: #### M 600.2200, M600.2000, M100.3000, M300.2000, M300.3000, M100.2000, M100.4001 #### [facility] Laboratory [address] [place], [address] /Chi 09-12-2024 MR/PAT.[facility] Medical Records Department [address] [place] [address] PAT - Anesthesia 09/12/24 1201 MR#: [id number] Acct: [id number] Name: OSCAR WOO Rep #: [id number] : 1950 74 From: Sonu Nguyen MD PCP: Dr. Hernando Grimes MD Status:PRE IN Y Race: C Location: [facility] Pre-Assessment Diagnosis/Proposed Procedure Planned Operative Procedure(s): LEFT SHOULDER I D REVISION LEFT SHOULDER Anesthesia History Anesthesia History - medical insurance biller: Anesthesia History - medical insurance biller Hx Hospitalization No 09/11/24 15:02 Any Problems With Anesthesia No 09/11/24 15:02 Cholinesterase deficiency No 09/11/24 15:02 You/Your Family Experience No 09/11/24 15:02 fever (hyperthermia) with Relationship Recent Exposure to Contagious No 06/24/20 07:25 Disease Does patient have nerve No 09/11/24 15:02 stimulator Patient instructed to have device shut off --Does patient have Pacemaker or ICD? When Was Last Pacemaker Check QUESTION #4 FULL TEXT: You/Your Family Experience fever (hyperthermia) with Anesthesia Last Oral Intake Last Oral intake: Last Oral Intake NPO since Meds taken in AM with sips of water? Meds patient instructed to take am of surgery PONV PONV - medical insurance biller: PONV - medical insurance biller Female Yes 09/11/24 15:02 HX of Motion Sickness No 09/11/24 15:02 HX of N/V After Surgery No 09/11/24 15:02 Non-Smoker Yes 09/11/24 15:02 Duration of Surgery greater Yes 09/11/24 15:02 than 60 minutes Number of Risk Factors 3 09/11/24 15:02 PONV Score Moderate Risk 09/11/24 15:02 Height Weight Height Weight: Anesthesia: Height Weight Height 5 ft 6 in 05/05/22 15:52 Respiratory Assessment Respiratory Assessment - medical insurance biller: Respiratory Tract Infection Hx - medical insurance biller Hx Respiratory Tract Infection No 09/11/24 15:02 STOP Sleep Apnea STOP Sleep Apnea - medical insurance biller: STOP Sleep Apnea - medical insurance biller Hx Hypertension Yes: CONTROLLED WITH MED 09/11/24 15:02 Hx Sleep Apnea No 09/11/24 15:02 CPAP No 06/24/20 10:56 BIPAP No 06/11/20 14:41 Do you snore loudly (louder Yes 09/11/24 15:02 than talking or can be heard Do you often feel tired/ Yes 09/11/24 15:02 fatigued/ sleepy during daytime? Has anyone observed you stop No 09/11/24 15:02 breathing during sleep? STOP Results Positive 09/11/24 15:02 QUESTION #5 FULL TEXT : Do you snore loudly (louder than talking or can be heard through closed doors)? Tobacco Use History Tobacco Use History - medical insurance biller: Tobacco Use History - medical insurance biller Tobacco Use Smoking Status Former smoker 09/11/24 15:02 Hx Tobacco Use No 09/11/24 15:02 Years Smoking Packs Smoked per Day Smoking Cessation Date was No - quit smoking greater 09/11/24 15:02 within the last 15 years than 15 years ago Hx Smoking Cessation Date Hx Smoking Cessation No 09/11/24 15:02 Counseling Hematologic Medial History Hematologic Hx - medical insurance biller: Hematologic Medical Hx - visual manager Hx of Blood Transfusion Yes 09/11/24 15:02 Hx of Transfusion in last 3 No 09/11/24 15:02 Months Date of Last Transfusion (if within last 3 months) Ever experience any problems No 09/11/24 15:02 with transfusion(s)? Specify any problems Hx of Preganancy in last 3 No 09/11/24 15:02 Months Nurse Filling Out Transfusion DSCHRIBER 09/11/24 15:02 Questions: Date: 09/11/24 09/11/24 15:02 Time: 15:04 09/11/24 15:02 Patient unable to answer at this time (ie. confused, unrespo /Reproducti on History /Reproducti ve History - medical insurance biller: /Reproducti ve Hx- medical insurance biller Hx Now No 09/11/24 15:02 Gestational Age (in weeks): EDC: Hx Hx Para Hx Section SAB No 09/11/24 15:02 Active Medications Active Medications: Current Medications Generic Name Dose Route Start Last Admin Trade Name Freq PRN Reason Stop Dose Admin Acetaminophen 1,000 mg 09/13/24 13:30 Acetaminophen 500 Mg Tablet PO 09/13/24 13:31 X1 ONE Gabapentin 600 mg 09/13/24 13:30 Gabapentin 600 Mg Tablet PO 09/13/24 13:31 X1 ONE Vancomycin HCl 1,500 mg/ 530 mls @ 250 mls/hr 09/13/24 13:30 Sodium Chloride IV Q12H KACEY Insulin Human Lispro 1 - 6 unit 09/13/24 13:30 Insulin Lispro 100 Unit/Ml Insuln.Pen SC Q4H PRN PRN BG>/= 180, SEE PROTOCOL Protocol PFSH Medical History Wears glasses Post-menopausal Depression Anxiety Walker as ambulation aid Ambulates with cane Arthritis High cholesterol Back pain Restless legs (more content not included)... Normal [facility] MR/PAT[facility] Medical Records Department [address] [place] [address] PAT - Anesthesia 09/12/24 1120 MR#: [id number] Acct: [id number] Name: OSCAR WOO Rep #: [id number] : 1950 74 From: Sonu Nguyen MD PCP: Dr. Hernando Grimes MD Status:PRE IN Y Race: C Location: [facility] Pre-Assessment Diagnosis/Proposed Procedure Planned Operative Procedure(s): LEFT SHOULDER I D REVISION LEFT SHOULDER Anesthesia History Anesthesia History - medical insurance biller: Anesthesia History - medical insurance biller Hx Hospitalization No 09/11/24 15:02 Any Problems With Anesthesia No 09/11/24 15:02 Cholinesterase deficiency No 09/11/24 15:02 You/Your Family Experience No 09/11/24 15:02 fever (hyperthermia) with Relationship Recent Exposure to Contagious No 06/24/20 07:25 Disease Does patient have nerve No 09/11/24 15:02 stimulator Patient instructed to have device shut off --Does patient have Pacemaker or ICD? When Was Last Pacemaker Check QUESTION #4 FULL TEXT: You/Your Family Experience fever (hyperthermia) with Anesthesia Last Oral Intake Last Oral intake: Last Oral Intake NPO since Meds taken in AM with sips of water? Meds patient instructed to take am of surgery PONV PONV - medical insurance biller: PONV - medical insurance biller Female Yes 09/11/24 15:02 HX of Motion Sickness No 09/11/24 15:02 HX of N/V After Surgery No 09/11/24 15:02 Non-Smoker Yes 09/11/24 15:02 Duration of Surgery greater Yes 09/11/24 15:02 than 60 minutes Number of Risk Factors 3 09/11/24 15:02 PONV Score Moderate Risk 09/11/24 15:02 Height Weight Height Weight: Anesthesia: Height Weight Height 5 ft 6 in 05/05/22 15:52 Respiratory Assessment Respiratory Assessment - medical insurance biller: Respiratory Tract Infection Hx - medical insurance biller Hx Respiratory Tract Infection No 09/11/24 15:02 STOP Sleep Apnea STOP Sleep Apnea - medical insurance biller: STOP Sleep Apnea - medical insurance biller Hx Hypertension Yes: CONTROLLED WITH MED 09/11/24 15:02 Hx Sleep Apnea No 09/11/24 15:02 CPAP No 06/24/20 10:56 BIPAP No 06/11/20 14:41 Do you snore loudly (louder Yes 09/11/24 15:02 than talking or can be heard Do you often feel tired/ Yes 09/11/24 15:02 fatigued/ sleepy during daytime? Has anyone observed you stop No 09/11/24 15:02 breathing during sleep? STOP Results Positive 09/11/24 15:02 QUESTION #5 FULL TEXT : Do you snore loudly (louder than talking or can be heard through closed doors)? Tobacco Use History Tobacco Use History - medical insurance biller: Tobacco Use History - medical insurance biller Tobacco Use Smoking Status Former smoker 09/11/24 15:02 Hx Tobacco Use No 09/11/24 15:02 Years Smoking Packs Smoked per Day Smoking Cessation Date was No - quit smoking greater 09/11/24 15:02 within the last 15 years than 15 years ago Hx Smoking Cessation Date Hx Smoking Cessation No 09/11/24 15:02 Counseling Hematologic Medial History Hematologic Hx - medical insurance biller: Hematologic Medical Hx - visual manager Hx of Blood Transfusion Yes 09/11/24 15:02 Hx of Transfusion in last 3 No 09/11/24 15:02 Months Date of Last Transfusion (if within last 3 months) Ever experience any problems No 09/11/24 15:02 with transfusion(s)? Specify any problems Hx of Preganancy in last 3 No 09/11/24 15:02 Months Nurse Filling Out Transfusion DSCHRIBER 09/11/24 15:02 Questions: Date: 09/11/24 09/11/24 15:02 Time: 15:04 09/11/24 15:02 Patient unable to answer at this time (ie. confused, unrespo /Reproducti on History /Reproducti ve History - medical insurance biller: /Reproducti ve Hx- medical insurance biller Hx Now No 09/11/24 15:02 Gestational Age (in weeks): EDC: Hx Hx Para Hx Section SAB No 09/11/24 15:02 Active Medications Active Medications: Current Medications Generic Name Dose Route Start Last Admin Trade Name Freq PRN Reason Stop Dose Admin Acetaminophen 1,000 mg 09/13/24 13:30 Acetaminophen 500 Mg Tablet PO 09/13/24 13:31 X1 ONE Gabapentin 600 mg 09/13/24 13:30 Gabapentin 600 Mg Tablet PO 09/13/24 13:31 X1 ONE Vancomycin HCl 1,500 mg/ 530 mls @ 250 mls/hr 09/13/24 13:30 Sodium Chloride IV Q12H KACEY Insulin Human Lispro 1 - 6 unit 09/13/24 13:30 Insulin Lispro 100 Unit/Ml Insuln.Pen SC Q4H PRN PRN BG>/= 180, SEE PROTOCOL Protocol PFSH Medical History Wears glasses Post-menopausal Depression Anxiety Walker as ambulation aid Ambulates with cane Arthritis High cholesterol Back pain Restless legs (more content not included)... Normal [facility] MRSA screenOrdered By: Mike Cavanaugh on 09-12-2024 Nasal Screen MRSA/MSSA [facility] Magnesiumon 09-12-2024 Magnesium [Mass/Vol] 1.7 mg/dL Normal 1.5-2.2 [facility] Comment on above: Performed By: #### M 600.2200, M600.2000, M100.3000, M300.2000, M300.3000, M100.2000, M100.4001 #### [facility] Laboratory [address] [place], [address] Magnesium (Unsp spec) [Mass/ Vol]Ordered By: Omar Walters on 09-12-2024 Magnesium [Mass/Vol] 1.7 mg/dL 1.5-2.2 [facility] Appearance (Syn fld)Ordered By: Fahad Cavanaugh on 09-11-2024 Synovial Fluid Appearance Cloudy CLEAR [facility] Bacteria identified Anaer cx Nom (Unsp spec)Ordered By: Fahad Cavanaugh on 09-11-2024 Anaerobic Culture No anaerobic bacteria isolated. [facility] Basic Metabolic Profile (BMP )on 09-11-2024 BUN/CRE 28.5 RATIO High 10-20 [facility] Comment on above: Performed By: #### M 600.2200, M600.2000, M100.3000, M300.2000, M300.3000, M100.2000, M100.4001 #### [facility] Laboratory [address] [place], [address] Calcium [Mass/Vol] 9.5 mg/dL Normal 7.6-11.0 [facility] Comment on above: Performed By: #### M 600.2200, M600.2000, M100.3000, M300.2000, M300.3000, M100.2000, M100.4001 #### [facility] [address] [place], [address] Chloride [Moles/Vol] 96 mmol/L Low 98-108 [facility] Comment on above: Performed By: #### M 600.2200, M600.2000, M100.3000, M300.2000, M300.3000, M100.2000, M100.4001 #### [facility] [address] [place], [address] CO2 [Moles/Vol] 31.1 mmol/L Normal 21.0-32.0 [facility] Comment on above: Performed By: #### M 600.2200, M600.2000, M100.3000, M300.2000, M300.3000, M100.2000, M100.4001 #### [facility] [address] [place], [address] Creatinine [Mass/Vol] 1.01 mg/dL Normal 0.70-1.20 [facility] Comment on above: Performed By: #### M 600.2200, M600.2000, M100.3000, M300.2000, M300.3000, M100.2000, M100.4001 #### [facility] [address] [place], [address] GAP 11 Normal 5-15 [facility] Comment on above: Performed By: #### M 600.2200, M600.2000, M100.3000, M300.2000, M300.3000, M100.2000, M100.4001 #### [facility] [address] [place], [address] GFR/1.73 sq M.predicted among non-blacks MDRD (S/P/Bld) [Vol rate/Area] 58 mL/min/{1.73_m2} Low >60 [facility] Comment on above: Result Comment: mL/m in/1.73m2 CKD-EPI Creatinine Equation (2020) Performed By: #### M 600.2200, M600.2000, M100.3000, M300.2000, M300.3000, M100.2000, M100.4001 #### [facility] [address] [place], [address] Glucose [Mass/Vol] 105 mg/dL High 70-99 [facility] Comment on above: Performed By: #### M 600.2200, M600.2000, M100.3000, M300.2000, M300.3000, M100.2000, M100.4001 #### [facility] [address] [place], [address] Potassium [Moles/Vol] 3.3 mmol/L Normal 3.3-5.1 [facility] Comment on above: Performed By: #### M 600.2200, M600.2000, M100.3000, M300.2000, M300.3000, M100.2000, M100.4001 #### [facility] [address] [place], [address] Sodium [Moles/Vol] 137 mmol/L Normal 133-145 [facility] Comment on above: Performed By: #### M 600.2200, M600.2000, M100.3000, M300.2000, M300.3000, M100.2000, M100.4001 #### [facility] [address] [place], [address] Urea nitrogen [Mass/Vol] 29 mg/dL High 4-19 [facility] Comment on above: Performed By: #### M 600.2200, M600.2000, M100.3000, M300.2000, M300.3000, M100.2000, M100.4001 #### [facility] [address] [place], [address] Body fluid cultureOrdered By : Fahad Cavanaguh on 09-11-2024 Body Fluid Culture Meth. resistant Staph. aureus Abnormal [facility] Cells Counted Total (Syn fld ) [#]Ordered By: Fahad Cavanaugh on 09-11-2024 Synovial Fluid Total Cells Counted 43.9600 10^3/uL High 0.000-0.000 [facility] Comment on above: This is the Total Nu mber of Nucleated Cell Types in the Body Fluid. Color (Syn fld)Ordered By: Celine Cavanaugh on 09-11-2024 Synovial Fluid Color Yellow Pale Yellow [facility] Gram stainOrdered By: Fahad Cavanaugh on 09-11-2024 Microscopic observation Gram stain Nom (Unsp spec) [facility] Lymphocytes/100 WBC (Bld)Ord ered By: Fahad Cavanaugh on 09-11-2024 Synovial Fluid Lymphocytes 4 % [facility] Monocytes/100 WBC (Syn fld)O rdered By: Fahad Cavanaugh on 09-11-2024 Synovial Fluid Monocytes 2 % [facility] Mononuclear cells Auto (Syn fld) [#/Vol]Ordered By: Fahad Cavanaugh on 09-11-2024 Synovial Fluid Mononuclear WBCs 3.460 10^3/ul [facility] Mononuclear cells/100 WBC (S yn fld)Ordered By: Fahad Cavanaugh on 09-11-2024 Synovial Fluid Mononuclear WBCs % 9.0 % [facility] Neutrophils/100 WBC (Syn fld )Ordered By: Fahad Cavanaugh on 09-11-2024 Synovial Fluid Neutrophils 94 % High 0-25 [facility] Pathologist review Fahad (Unsp spec) [Interp]Ordered By: Fahad Cavanaugh on 09-11-2024 Synovial Fluid Pathologist Comment May follow [facility] Polymorphonuclear cells Auto (Syn fld) [#/Vol]Ordered By: Fahad Cavanaugh on 09-11-2024 Synovial Fluid Polynuclear WBCs 34.879 10^3/uL [facility] Polymorphonuclear cells/100 WBC Auto (Syn fld)Ordered By: Fahad Cavanaugh on 09-11-2024 Synovial Fluid Polynuclear WBCs % 91.0 % [facility] RBC (Syn fld) [#/Vol]Ordered By: Fahad Cavanaugh on 09-11-2024 Synovial Fluid RBC 0.015 10^6/uL High 0-0 [facility] Specimen source Nom (Body fl d)Ordered By: Fahad Cavanaugh on 09-11-2024 Synovial Fluid Source SHOULDER [facility] Viscosity Ql (Syn fld)Ordere d By: Fahad Cavanaugh on 09-11-2024 Synovial Fluid Viscosity Viscous HIGH [facility] WBC Auto (Syn fld) [#/Vol]Or dered By: Fahad Cavanaugh on 09-11-2024 Synovial Fluid WBC 43.6850 10^3/uL High 0.000-0.002 [facility] C-REACTIVE PROTEINon 025 CRP 13.29 mg/dl High 0.00 - 0.90 [facility] Comment on above: Performed By: #### 2 [id number] #### [place] [address] CBC + DIFFon 09-10-2024 Baso # 0.03 x10EE3/UL Normal 0.00 - 0.10 [facility] Comment on above: Performed By: #### 2 [id number] #### [facility],[address] [place] [address] Basophils/100 WBC (Bld) 0.3 % Normal 0.0 - 2.0 [facility] Comment on above: Performed By: #### 2 [id number] #### [facility],[address] [place] [address] CBC + DIFF Normal [facility] Comment on above: Result Comment: CBC- COMPLETE BLOOD COUNT Performed By: #### 2 69214 #### [facility],[address] [place] [address] EO # 0.22 x10EE3/UL Normal 0.00 - 0.50 [facility] Comment on above: Performed By: #### 2 [id number] #### [facility],[address] [place] [address] Eosinophils/100 WBC (Bld) 2.2 % Normal 0.0 - 7.0 [facility] Comment on above: Performed By: #### 2 17654 #### [facility],[address] [place] [address] Erythrocyte distribution width (RBC) [Ratio] 13.4 % Normal 12.0 - 15.6 [facility] Comment on above: Performed By: #### 2 34812 #### [facility],[address] [place] [address] Hematocrit (Bld) [Volume fraction] 39.5 % Normal 34.0 - 46.0 [facility] Comment on above: Performed By: #### 2 [id number] #### [facility],[address] [place] [address] Hemoglobin (Bld) [Mass/Vol] 13.6 g/dL Normal 12.0 - 16.0 [facility] Comment on above: Performed By: #### 2 06898 #### [facility],[address] [place] [address] Lymph # 1.07 x10EE3/UL Normal 0.80 - 2.80 [facility] Comment on above: Performed By: #### 2 90962 #### [facility],[address] [place], [place] [id number] Lymphocytes/100 WBC (Bld) 10.6 % Low 20.0 - 45.0 [facility] Comment on above: Performed By: #### 2 14006 #### [facility],[address] [place] [address] MANUAL DIFF N/A Normal [facility] Comment on above: Performed By: #### 2 94862 #### [facility],[address] [place] [address] MCH (RBC) [Entitic mass] 31 pg Normal 27 - 33 [facility] Comment on above: Performed By: #### 2 92748 #### [facility],[address] [place] [address] MCHC 35 X10 3 Normal 32 - 36 [facility] Comment on above: Performed By: #### 2 42500 #### [facility],[address] [place] [address] MCV (RBC) [Entitic vol] 90 fL Normal 80 - 99 [facility] Comment on above: Performed By: #### 2 11655 #### [facility],[address] [place] [address] [place] # 1.00 x10EE3/UL Normal 0.20 - 1.00 [facility] Comment on above: Performed By: #### 2 19089 #### [facility],[address] [place], [place] [id number] MONOS % 9.9 % Normal 0.0 - 10.0 [facility] Comment on above: Performed By: #### 2 92463 #### [facility],[address] [place] [address] Morphology Fahad (Bld) [Interp] N/A Normal [facility] Comment on above: Performed By: #### 2 22338 #### [facility],[address] [place] [address] Neut # 7.73 x10EE3/UL High 1.50 - 7.10 [facility] Comment on above: Performed By: #### 2 33640 #### [facility],[address] [place] [address] Neutrophils/100 WBC (Bld) 77.0 % High 46.0 - 76.0 [facility] Comment on above: Performed By: #### 2 26885 #### [facility],[address] [place] [address] PLATELET 233 x10EE3/UL Normal 150 - 450 [facility] Comment on above: Performed By: #### 2 59262 #### [facility],[address] [place] [address] Platelet mean volume (Bld) [Entitic vol] 8.5 fL Normal 6.6 - 10.5 [facility] Comment on above: Result Comment: AUTO MATED DIFFERENTIAL Performed By: #### 2 39843 #### [facility],[address] [place] [address] RBC 4.39 x 10EE6/UL Normal 4.10 - 5.30 [facility] Comment on above: Performed By: #### 2 04467 #### [facility],[address] [place] [address] WBC 10.0 x 10EE3/UL Normal 4.5 - 10.8 [facility] Comment on above: Performed By: #### 2 90042 #### [facility],[address] [place] [address] SEDRATEon 09-10-2024 SEDRATE 83 mm/hr High 0 - 30 [facility] Comment on above: Performed By: #### 2 09356 #### [facility],[address] [place] [address] Comprehensive Metabolic Prof ilon 04-29-2024 Albumin [Mass/Vol] 3.7 g/dL Normal 3.2-5.0 [facility] Comment on above: Order Comment: Order Date: 04/29/24Order Info: 0786-1 - CMP Performed By: #### M 600.2200, M600.2000, M100.3000, M300.2000, M300.3000, M100.2000, M100.4001 #### [facility] [address] [place], [place], [address] Albumin/Globulin [Mass ratio] 1.1 {ratio} Normal 0.9-2.4 [facility] Comment on above: Order Comment: Order Date: 04/29/24Order Info: 0786-1 - CMP Performed By: #### M 600.2200, M600.2000, M100.3000, M300.2000, M300.3000, M100.2000, M100.4001 #### [facility] [address] [place], [place], [address] ALK P 95 U/L Normal 45-117 [facility] Comment on above: Order Comment: Order Date: 04/29/24Order Info: 0786-1 - CMP Performed By: #### M 600.2200, M600.2000, M100.3000, M300.2000, M300.3000, M100.2000, M100.4001 #### [facility] [address] [place], [place], [address] ALT [Catalytic activity/Vol] 26 U/L Normal 13-56 [facility] Comment on above: Order Comment: Order Date: 04/29/24Order Info: 0786-1 - CMP Performed By: #### M 600.2200, M600.2000, M100.3000, M300.2000, M300.3000, M100.2000, M100.4001 #### [facility] [address] [place], [place], [address] AST [Catalytic activity/Vol] 22 U/L Normal 15-37 [facility] Comment on above: Order Comment: Order Date: 04/29/24Order Info: 0786-1 - CMP Performed By: #### M 600.2200, M600.2000, M100.3000, M300.2000, M300.3000, M100.2000, M100.4001 #### [facility] [address] [place], [address] Bilirubin [Mass/Vol] 0.70 mg/dL Normal 0.20-1.00 [facility] Comment on above: Order Comment: Order Date: 04/29/24Order Info: 0786-1 - CMP Result Comment: For patients on eltrombopag therapy, use of Dimension [place] TBIL is not recommended. Performed By: #### M 600.2200, M600.2000, M100.3000, M300.2000, M300.3000, M100.2000, M100.4001 #### [facility] [address] [place], [address] BUN/CRE 21.7 RATIO High 10-20 [facility] Comment on above: Order Comment: Order Date: 04/29/24Order Info: 0786-1 - CMP Performed By: #### M 600.2200, M600.2000, M100.3000, M300.2000, M300.3000, M100.2000, M100.4001 #### [facility] [address] [place], [address] CA,Total 9.4 mg/dL Normal 8.5-10.1 [facility] Comment on above: Order Comment: Order Date: 04/29/24Order Info: 0786-1 - CMP Performed By: #### M 600.2200, M600.2000, M100.3000, M300.2000, M300.3000, M100.2000, M100.4001 #### [facility] [address] [place], [address] Chloride [Moles/Vol] 100 mmol/L Normal 98-107 [facility] Comment on above: Order Comment: Order Date: 04/29/24Order Info: 0786-1 - CMP Performed By: #### M 600.2200, M600.2000, M100.3000, M300.2000, M300.3000, M100.2000, M100.4001 #### [facility] [address] [place], [address] CO2 [Moles/Vol] 32.0 mmol/L Normal 21.0-32.0 [facility] Comment on above: Order Comment: Order Date: 04/29/24Order Info: 0786-1 - CMP Performed By: #### M 600.2200, M600.2000, M100.3000, M300.2000, M300.3000, M100.2000, M100.4001 #### [facility] [address] [place], [place], [address] Creatinine [Mass/Vol] 1.06 mg/dL High 0.55-1.02 [facility] Comment on above: Order Comment: Order Date: 04/29/24Order Info: 0786-1 - CMP Result Comment: The validity of the calculated GFR GFRAA in patients over 70 years has not been determined. Clinical correlation is essential. Performed By: #### M 600.2200, M600.2000, M100.3000, M300.2000, M300.3000, M100.2000, M100.4001 #### [facility] [address] [place], [place], [address] EST GFR - AA 65 mL/min Normal >60 [facility] Comment on above: Order Comment: Order Date: 04/29/24Order Info: 0786-1 - CMP Result Comment: Afri can Finnish GFR Calc Performed By: #### M 600.2200, M600.2000, M100.3000, M300.2000, M300.3000, M100.2000, M100.4001 #### [facility] [address] [place], [address] GAP 5 Normal 5-15 [facility] Comment on above: Order Comment: Order Date: 04/29/24Order Info: 0786-1 - CMP Performed By: #### M 600.2200, M600.2000, M100.3000, M300.2000, M300.3000, M100.2000, M100.4001 #### [facility] [address] [place], [place], [address] GFR/1.73 sq M.predicted among non-blacks MDRD (S/P/Bld) [Vol rate/Area] 54 mL/min/{1.73_m2} Low >60 [facility] Comment on above: Order Comment: Order Date: 04/29/24Order Info: 0786-1 - CMP Result Comment: Non- GFR Calc Performed By: #### M 600.2200, M600.2000, M100.3000, M300.2000, M300.3000, M100.2000, M100.4001 #### [facility] [address] [place], [place], [id number] Globulin (S) [Mass/Vol] 3.3 g/dL Normal 2.2-4.2 [facility] Comment on above: Order Comment: Order Date: 04/29/24Order Info: 0786-1 - CMP Performed By: #### M 600.2200, M600.2000, M100.3000, M300.2000, M300.3000, M100.2000, M100.4001 #### [facility] [address] [place], [place], [address] Glucose [Mass/Vol] 95 mg/dL Normal 74-106 [facility] Comment on above: Order Comment: Order Date: 04/29/24Order Info: 0786-1 - CMP Performed By: #### M 600.2200, M600.2000, M100.3000, M300.2000, M300.3000, M100.2000, M100.4001 #### [facility] [address] [place], [place], [id number] Potassium [Moles/Vol] 4.3 mmol/L Normal 3.5-5.1 [facility] Comment on above: Order Comment: Order Date: 04/29/24Order Info: 0786-1 - CMP Performed By: #### M 600.2200, M600.2000, M100.3000, M300.2000, M300.3000, M100.2000, M100.4001 #### [facility] [address] [place], [address] Sodium [Moles/Vol] 137 mmol/L Normal 136-145 [facility] Comment on above: Order Comment: Order Date: 04/29/24Order Info: 0786-1 - CMP Performed By: #### M 600.2200, M600.2000, M100.3000, M300.2000, M300.3000, M100.2000, M100.4001 #### [facility] [address] [place], [place], [id number] T PROT 7.0 g/dL Normal 6.4-8.2 [facility] Comment on above: Order Comment: Order Date: 04/29/24Order Info: 0786-1 - CMP Performed By: #### M 600.2200, M600.2000, M100.3000, M300.2000, M300.3000, M100.2000, M100.4001 #### [facility] [address] [place], [place], [address] Urea nitrogen [Mass/Vol] 23 mg/dL High 7-18 [facility] Comment on above: Order Comment: Order Date: 04/29/24Order Info: 0786-1 - CMP Performed By: #### M 600.2200, M600.2000, M100.3000, M300.2000, M300.3000, M100.2000, M100.4001 #### [facility] [address] [place], [address] Vitamin D,25 Hydroxyon 04-29 Vitamin D 25-OH 12.2 ng/mL Normal [facility] Comment on above: Order Comment: Order Date: 04/29/24Order Info: [id number] - [id number] Result Comment: Lori min D 25(OH) Status Range Deficiency <20 ng/mL (50nmol/L) Insufficiency 20 - 30 ng/mL (50 - 75 nmol/L) Sufficiency 30 - 100 ng/mL (75 - 250 nmol/L) Toxicity >100 ng/mL (>250 nmol/L) Performed By: #### M 600.2200, M600.2000, M100.3000, M300.2000, M300.3000, M100.2000, M100.4001 #### [facility] [address] [place], [address] Absolute lymphocyte countOrd ered By: Hernando Grimes on 10-19-2023 Lymphocytes Auto (Unsp spec) [#/Vol] 1.54 10*3/uL 0.83-4.51 [facility] Automated lymphocyte count a s percentage of total leukocytesOrdered By: Hernando Grimes on 10-19-2023 Lymphocytes/100 WBC Auto (Unsp spec) 25.0 % 19-41 [facility] Basophil percentageOrdered B y: Hernando Grimes on 10-19-2023 Basophils/100 WBC (Bld) 0.6 % 0-1 [facility] Bilirubin [Mass/Vol] 0.40 mg/dL 0.20-1.00 [facility] Comment on above: For patients on eltr ombopag therapy, use of Dimension [place] TBIL is not recommended. Chloride [Moles/Vol] 103 mmol/L 98-107 [facility] Eosinophils/100 WBC (Bld) 2.8 % 0-5 [facility] Glucose [Mass/Vol] 105 mg/dL 74-106 [facility] Comment on above: Fasting Glucose resu lt from 100 to 125 mg/dL suggests IMPAIRED HOMEOSTASIS per A.D.A. criteria. Hemoglobin (Bld) [Mass/Vol] 14.4 g/dL 12.0-15.0 [facility] Monocytes/100 WBC (Bld) 8.1 % 0-10 [facility] Neutrophils (Bld) [#/Vol] 3.9 10*3/uL 2.0-7.7 [facility] Neutrophils/100 WBC (Bld) 63.0 % 47-70 [facility] Potassium [Moles/Vol] 4.8 mmol/L 3.5-5.1 [facility] Protein [Mass/Vol] 7.5 g/dL 6.4-8.2 [facility] Sodium [Moles/Vol] 139 mmol/L 136-145 [facility] WBC (Bld) [#/Vol] 6.2 10*3/uL 4.4-11.0 [facility] Determination of erythrocyte mean corpuscular volume (MCV)Ordered By: Hernando Grimes on 10-19-2023 MCV (RBC) [Entitic vol] 94.8 fL 81-99 [facility] Erythrocyte distribution wid th ratioOrdered By: Hernando Grimes on 10-19-2023 Erythrocyte distribution width (RBC) [Ratio] 13.9 % 11.6-14.6 [facility] Erythrocyte distribution wid th standard deviationOrdered By: Hernando Grimes on 10-19-2023 Erythrocyte distribution width (RBC) [Entitic vol] 49.0 fL 35.1-43.9 [facility] Hematocrit Auto (Bld) [Volum e fraction]Ordered By: Hernando Grimes on 10-19-2023 Hematocrit (Bld) [Volume fraction] 46.0 % 37-47 [facility] Immature granulocytes/100 WB C Auto (Bld)Ordered By: Hernando Grimes on 10-19-2023 Immature granulocytes/100 WBC (Bld) 0.500 % 0.0-0.9 [facility] Comment on above: IG% - Immature Granu locytes (promyelocytes, myelocytes and metamyelocytes) > 1% indicates that a LEFT SHIFT is Present. Laboratory - Chemistry and C hemistry - challengeOrdered By: Hernando Grimes on 10-19-2023 Albumin/Globulin [Mass ratio] 1.0 {ratio} 0.9-2.4 [facility] ALP [Catalytic activity/Vol] 121 U/L 45-117 [facility] ALT [Catalytic activity/Vol] 28 U/L 13-56 [facility] CO2 [Moles/Vol] 32.0 mmol/L 21.0-32.0 [facility] Ferritin [Mass/Vol] 72 ng/mL 8-[facility] Globulin (S) [Mass/Vol] 3.8 g/dL 2.2-4.2 [facility] Magnesium [Mass/Vol] 2.0 mg/dL 1.6-2.6 [facility] Urea nitrogen/Creatinine [Mass ratio] 28.6 mg/mg 10-20 [facility] Laboratory - Hematology and Cell countsOrdered By: Hernando Grimes on 10-19-2023 MCH (RBC) [Entitic mass] 29.7 pg 27.0-32.0 [facility] MCHC (RBC) [Mass/Vol] 31.3 g/dL 32-36 [facility] Nucleated RBC/100 WBC (Bld) [Ratio] 0 % 0-5 [facility] Platelet mean volume (Bld) [Entitic vol] 11.8 fL 6.2-12.0 [facility] Platelets (Bld) [#/Vol] 192 10*3/uL 150-450 [facility] No Panel InformationOrdered By: Hernando Grimes on 10-19-2023 Estimated GFR (MDRD) Amer 61 mL/min >60 [facility] Comment on above: GFR Calc Estimated GFR (MDRD) Non-Af Amer 50 mL/min >60 [facility] Comment on above: Non- GFR Calc Urine Microalbumin/Creatinine Ratio 180.8 mg/g CRE <30 [facility] RBC Auto (Bld) [#/Vol]Ordere d By: Hernando Grimes on 10-19-2023 RBC (Bld) [#/Vol] 4.85 10*6/uL 4.2-5.4 [facility] Serum or plasma calcium lisa urement (mass/volume)Ordered By: Hernando Grimes on 10-19-2023 Calcium [Mass/Vol] 9.8 mg/dL 8.5-10.1 [facility] Serum or plasma creatinine m easurement (mass/volume)Ordered By: Hernando Grimes on 10-19-2023 Creatinine [Mass/Vol] 1.12 mg/dL 0.55-1.02 [facility] Comment on above: The validity of the calculated GFR & GFRAA in patients over 70 years has not been determined. Clinical correlation is essential. Serum or plasma thyroid stim ulating hormone (TSH) measurement (units/volume)Ordered By: Hernando Grimes on 10-19-2023 TSH Qn 1.61 uIU/mL 0.358-3.74 [facility] Serum or plasma urea nitroge n measurement (mass/volume)Ordered By: Hernando Grimes on 10-19-2023 Urea nitrogen [Mass/Vol] 32 mg/dL 7-18 [facility] Thin prep Papanicolaou smear with manual screeningOrdered By: Hernando Grimes on 10-19-2023 Thin prep Papanicolaou smear with manual screening 3.7 g/dL 3.2-5.0 [facility] Thin prep Papanicolaou smear with manual screening 25 U/L 15-37 [facility] Thin prep Papanicolaou smear with manual screening 4 5-15 [facility] Thin prep Papanicolaou smear with manual screening 79.0 mg/L NO RANGE EST. [facility] Urine creatinine measurement (mass/volume)Ordered By: Hernando Grimes on 10-19-2023 Creatinine (U) [Mass/Vol] 43.70 mg/dL NO RANGE EST. [facility] Absolute lymphocyte countOrd ered By: Dr. Grimes on 10-18-2022 Lymphocytes Auto (Unsp spec) [#/Vol] 1.84 10*3/uL 0.83-4.51 [facility] Basophil percentageOrdered B y: Dr. Grimes on 10-18-2022 Basophils/100 WBC (Bld) 0.9 % 0-1 [facility] Bilirubin [Mass/Vol] 0.50 mg/dL 0.20-1.00 [facility] Comment on above: For patients on eltr ombopag therapy, use of Dim[employer] [place] TBIL is not recommended. Chloride [Moles/Vol] 106 mmol/L 98-107 [facility] Cholesterol [Mass/Vol] 315 mg/dL <200 [facility] Comment on above: <200 mg/dL Desirable 200-240 mg/dL Borderline >240 mg/dL High Risk Eosinophils/100 WBC (Bld) 3.2 % 0-5 [facility] Glucose [Mass/Vol] 94 mg/dL 74-106 [facility] Neutrophils (Bld) [#/Vol] 4.3 10*3/uL 2.0-7.7 [facility] Neutrophils/100 WBC (Bld) 61.3 % 47-70 [facility] Potassium [Moles/Vol] 4.5 mmol/L 3.5-5.1 [facility] Protein [Mass/Vol] 7.1 g/dL 6.4-8.2 [facility] Sodium [Moles/Vol] 137 mmol/L 136-145 [facility] Triglyceride [Mass/Vol] 246 mg/dL <199 [facility] Comment on above: The drugs N-Acetylcy steine and Metamizole may falsely depress this assay.Serum Triglycerides Reference Interval Normal <150 mg/dL Borderline high 150 - 199 mg/dL High 200 - 499 mg/dL Very High > or = 500 mg/dL WBC (Bld) [#/Vol] 6.9 10*3/uL 4.4-11.0 [facility] Blood erythrocytes count (nu mber/volume)Ordered By: Dr. Grimes on 10-18-2022 RBC (Bld) [#/Vol] 4.89 10*6/uL 4.2-5.4 [facility] Blood hemoglobin measurement (mass/volume)Ordered By: Dr. Grimes on 10-18-2022 Hemoglobin (Bld) [Mass/Vol] 14.1 g/dL 12.0-15.0 [facility] Blood lymphocytes/100 leukoc ytesOrdered By: Dr. Grimes on 10-18-2022 Lymphocytes/100 WBC (Bld) 26.6 % 19-41 [facility] Blood monocytes/100 leukocyt esOrdered By: Dr. Grimes on 10-18-2022 Monocytes/100 WBC (Bld) 7.4 % 0-10 [facility] Blood platelet mean volumeOr dered By: Dr. Grimes on 10-18-2022 Platelet mean volume (Bld) [Entitic vol] 10.9 fL 6.2-12.0 [facility] Determination of erythrocyte mean corpuscular volume (MCV)Ordered By: Dr. Grimes on 10-18-2022 MCV (RBC) [Entitic vol] 92.6 fL 81-99 [facility] Hematocrit Auto (Bld) [Volum e fraction]Ordered By: Dr. Grimes on 10-18-2022 Hematocrit (Bld) [Volume fraction] 45.3 % 37-47 [facility] Laboratory - Chemistry and C hemistry - challengeOrdered By: Dr. Grimes on 10-18-2022 ALP [Catalytic activity/Vol] 113 U/L 45-117 [facility] ALT [Catalytic activity/Vol] 34 U/L 13-56 [facility] CO2 [Moles/Vol] 27.0 mmol/L 21.0-32.0 [facility] Globulin (S) [Mass/Vol] 3.6 g/dL 2.2-4.2 [facility] Urea nitrogen/Creatinine [Mass ratio] 24.5 mg/mg 10-20 [facility] Laboratory - Hematology and Cell countsOrdered By: Dr. Grimes on 10-18-2022 Erythrocyte distribution width (RBC) [Entitic vol] 45.0 fL 35.1-43.9 [facility] Erythrocyte distribution width (RBC) [Ratio] 13.4 % 11.6-14.6 [facility] [facility] Imm[facility] granulocytes/100 WBC (Bld) 0.600 % 0.0-0.9 [facility] Comment on above: IG% - Immature Granu locytes (promyelocytes, myelocytes and metamyelocytes) > 1% indicates that a LEFT SHIFT is Present. MCH (RBC) [Entitic mass] 28.8 pg 27.0-32.0 [facility] Nucleated RBC/100 WBC (Bld) [Ratio] 0 % 0-5 [facility] MCHC Auto (RBC) [Mass/Vol]Or dered By: Dr. Grimes on 10-18-2022 MCHC (RBC) [Mass/Vol] 31.1 g/dL 32-36 [facility] No Panel InformationOrdered By: Dr. Grimes on 10-18-2022 Estimated GFR (MDRD) Amer 79 mL/min >60 [facility] Comment on above: GFR Calc Estimated GFR (MDRD) Non-Af Amer 65 mL/min >60 [facility] Comment on above: Non- GFR Calc Urine Microalbumin/Creatinine Ratio 266.0 mg/g CRE <30 [facility] Vitamin D 25-Hydroxy 27.3 ng/mL [facility] Comment on above: Vitamin D 25(OH) Sta tus Range Deficiency <20 ng/mL (50nmol/L) Insufficiency 20 - 30 ng/mL (50 - 75 nmol/L) Sufficiency 30 - 100 ng/mL (75 - 250 nmol/L) Toxicity >100 ng/mL (>250 nmol/L) Platelets bldOrdered By: Dr. Grimes on 10-18-2022 Platelets (Bld) [#/Vol] 196 10*3/uL 150-450 [facility] Serum or plasma albumin lisa urement (mass/volume)Ordered By: Dr. Grimes on 10-18-2022 Albumin [Mass/Vol] 3.5 g/dL 3.2-5.0 [facility] Serum or plasma albumin/glob ulin mass ratioOrdered By: Dr. Grimes on 10-18-2022 Albumin/Globulin [Mass ratio] 1.0 {ratio} 0.9-2.4 [facility] Serum or plasma calcium lisa urement (mass/volume)Ordered By: Dr. Grimes on 10-18-2022 Calcium [Mass/Vol] 9.2 mg/dL 8.5-10.1 [facility] Serum or plasma cholesterol in HDL measurement (mass/volume)Ordered By: Dr. Grimes on 10-18-2022 Cholesterol in HDL [Mass/Vol] 56 mg/dL >40 [facility] Comment on above: The drugs N-Acetylcy steine and Metamizole may falsely depress this assay. Reference Range HDL <40 mg/dL Low HDL Cholesterol HDL >or= 60 mg/dL High HDL Cholesterol Serum or plasma cholesterol in VLDL measurement (mass/volume)Ordered By: Dr. Grimes on 10-18-2022 Cholesterol in VLDL [Mass/Vol] 49 mg/dL 5-40 [facility] Serum or plasma creatinine m easurement (mass/volume)Ordered By: Dr. Grimes on 10-18-2022 Creatinine [Mass/Vol] 0.90 mg/dL 0.55-1.02 [facility] Comment on above: The validity of the calculated GFR & GFRAA in patients over 70 years has not been determined. Clinical correlation is essential. Serum or plasma ferritin bubba surement (mass/volume)Ordered By: Dr. Grimes on 10-18-2022 Ferritin [Mass/Vol] 65 ng/mL 8-252 [facility] Serum or plasma low density lipoprotein (LDL) cholesterol measurement (mass/volume)Ordered By: Dr. Grimes on 10-18-2022 Cholesterol in LDL [Mass/Vol] 210 mg/dL 0-130 [facility] Serum or plasma urea nitroge n measurement (mass/volume)Ordered By: Dr. Grimes on 10-18-2022 Urea nitrogen [Mass/Vol] 22 mg/dL 7-18 [facility] Thin prep Papanicolaou smear with manual screeningOrdered By: Dr. Grimes on 10-18-2022 Thin prep Papanicolaou smear with manual screening 25 U/L 15-37 [facility] Thin prep Papanicolaou smear with manual screening 4 5-15 [facility] Thin prep Papanicolaou smear with manual screening 104.0 mg/L NO RANGE EST. [facility] Urine creatinine measurement (mass/volume)Ordered By: Dr. Grimes on 10-18-2022 Creatinine (U) [Mass/Vol] 39.10 mg/dL NO RANGE EST. [facility] Whole blood hemoglobin A1c/t otal hemoglobin ratio (mass fraction)Ordered By: Dr. Grimes on 10-18-2022 HbA1c (Bld) [Mass fraction] 5.6 % 3.8-5.6 [facility] Comment on above: Normal < 5.7 % Predi abetic 5.7 - 6.4 % Diabetic >or= 6.5 % Please note range changes. No Panel Informationon 04-20 Stool Pancreatic Elastase > 500 >200 [facility] Work Phone: Comment on above: Result Units: ug Estephania st./g Severe Pancreatic Insufficiency: <100 Moderate Pancreatic Insufficiency: 100 - 200 Normal: >200Performed at: [facility] - [facility] [address] [id number] Director: Javier Christie MD, Phone: [phone] Basophil percentageon 2021 Bilirubin [Mass/Vol] 0.70 mg/dL 0.20-1.00 [facility] Work Phone: Comment on above: For patients on eltr ombopag therapy, use of Dimension [place] TBIL is not recommended. Chloride [Moles/Vol] 100 mmol/L 98-107 [facility] Work Phone: Cholesterol [Mass/Vol] 286 mg/dL <200 [facility] Work Phone: Comment on above: <200 mg/dL Desirable 200-240 mg/dL Borderline >240 mg/dL High Risk Glucose [Mass/Vol] 101 mg/dL 74-106 [facility] Work Phone: Comment on above: Fasting Glucose resu lt from 100 to 125 mg/dL suggests IMPAIRED HOMEOSTASIS per A.D.A. criteria. Potassium [Moles/Vol] 3.5 mmol/L 3.5-5.1 [facility] Work Phone: Protein [Mass/Vol] 7.5 g/dL 6.4-8.2 [facility] Work Phone: Sodium [Moles/Vol] 137 mmol/L 136-145 [facility] Work Phone: Triglyceride [Mass/Vol] 202 mg/dL <199 [facility] Work Phone: Comment on above: The drugs N-Acetylcy steine and Metamizole may falsely depress this assay.Serum Triglycerides Reference Interval Normal <150 mg/dL Borderline high 150 - 199 mg/dL High 200 - 499 mg/dL Very High > or = 500 mg/dL Laboratory - Chemistry and C hemistry - challengeon 04-19-2022 Albumin [Mass/Vol] 4.0 g/dL 2.9-4.4 [facility] Work Phone: ALP [Catalytic activity/Vol] 107 U/L 45-117 [facility] Work Phone: ALT [Catalytic activity/Vol] 35 U/L 13-56 [facility] Work Phone: CO2 [Moles/Vol] 31.0 mmol/L 21.0-32.0 [facility] Work Phone: Cobalamin (Vitamin B12) [Mass/Vol] 405 pg/mL 211-911 [facility] Work Phone: Globulin (S) [Mass/Vol] 3.6 g/dL 2.2-4.2 [facility] Work Phone: Urea nitrogen/Creatinine [Mass ratio] 16.6 mg/mg 10-20 [facility] Work Phone: No Panel Informationon 04-19 Addendum Document Comment . [facility] Work Phone: Comment on above: The SPE pattern appe ars unremarkable. Evidence ofmonoclonal protein is not apparent.Performed at: [facility] [id number] [place], [place] [id number] Director: Jorden Figueroa PhD, Phone: [phone] Pzoqb-1-Zyejzgxfo 0.3 g/dL 0.0-0.4 [facility] Work Phone: Yhtzk-3-Ucewntsop 0.8 g/dL 0.4-1.0 [facility] Work Phone: Anti-Nuclear Antibody Screen Negative Negative [facility] Work Phone: Comment on above: Performed at: [facility] [employer] [id number] [place], [place] [id number] Director: Jorden Figueroa PhD, Phone: [phone] Estimated GFR (MDRD) Amer 73 mL/min >60 [facility] Work Phone: Comment on above: GFR Calc Estimated GFR (MDRD) Non-Af Amer 60 mL/min >60 [facility] Work Phone: Comment on above: Non- GFR Calc Gamma Globulins 1.0 g/dL 0.4-1.8 [facility] Work Phone: Urine Microalbumin/Creatinine Ratio 94.8 mg/g CRE <30 [facility] Work Phone: Protein Fractions Elph [Inte rp]on 04-19-2022 Protein Fractions [Interp] Comment . [facility] Work Phone: Comment on above: Protein electrophore sis scan will follow via computer,mail, or home paraprofessional delivery. Serum albumin to globulin ra bernard by protein electrophoresison 04-19-2022 Albumin/Globulin Elph [Mass ratio] 1.2 0.7-1.7 [facility] Work Phone: Serum globulin measurement ( mass/volume)on 04-19-2022 Globulin (S) [Mass/Vol] 3.3 g/dL 2.2-3.9 [facility] Work Phone: Serum or plasma albumin lisa urement (mass/volume)on 04-19-2022 Albumin [Mass/Vol] 3.9 g/dL 3.2-5.0 [facility] Work Phone: Serum or plasma albumin/glob ulin mass ratioon 04-19-2022 Albumin/Globulin [Mass ratio] 1.1 {ratio} 0.9-2.4 [facility] Work Phone: Serum or plasma beta globuli n measurement by electrophoresis (mass/volume)on 04-19-2022 Beta globulin Elph [Mass/Vol] 1.2 g/dL 0.7-1.3 [facility] Work Phone: Serum or plasma calcium lisa urement (mass/volume)on 04-19-2022 Calcium [Mass/Vol] 9.7 mg/dL 8.5-10.1 [facility] Work Phone: Serum or plasma cholesterol in HDL measurement (mass/volume)on 04-19-2022 Cholesterol in HDL [Mass/Vol] 59 mg/dL >40 [facility] Work Phone: Comment on above: The drugs N-Acetylcy steine and Metamizole may falsely depress this assay. Reference Range HDL <40 mg/dL Low HDL Cholesterol HDL >or= 60 mg/dL High HDL Cholesterol Serum or plasma cholesterol in VLDL measurement (mass/volume)on 04-19-2022 Cholesterol in VLDL [Mass/Vol] 40 mg/dL 5-40 [facility] Work Phone: Serum or plasma creatinine m easurement (mass/volume)on 04-19-2022 Creatinine [Mass/Vol] 0.96 mg/dL 0.55-1.02 [facility] Work Phone: Comment on above: The validity of the calculated GFR & GFRAA in patients over 70 years has not been determined. Clinical correlation is essential. Serum or plasma folate measu rement (mass/volume)on 04-19-2022 Folate [Mass/Vol] 33.60 ng/mL 3.1-55.4 [facility] Work Phone: Serum or plasma low density lipoprotein (LDL) cholesterol measurement (mass/volume)on 04-19-2022 Cholesterol in LDL [Mass/Vol] 187 mg/dL 0-130 [facility] Work Phone: Serum or plasma urea nitroge n measurement (mass/volume)on 04-19-2022 Urea nitrogen [Mass/Vol] 16 mg/dL 01-17 [facility] Work Phone: Thin prep Papanicolaou smear with manual screeningon 04-19-2022 Thin prep Papanicolaou smear with manual screening 26 U/L 15-37 [facility] Work Phone: Thin prep Papanicolaou smear with manual screening 6 5-15 [facility] Work Phone: Thin prep Papanicolaou smear with manual screening 58.4 mg/L NO RANGE EST. [facility] Work Phone: Thin prep Papanicolaou smear with manual screening See comment [facility] Work Phone: Comment on above: Result: Not Observed Total protein bloodon 2021 Protein [Mass/Vol] 7.3 g/dL 6.0-8.5 [facility] Work Phone: Urine creatinine measurement (mass/volume)on 04-19-2022 Creatinine (U) [Mass/Vol] 61.60 mg/dL NO RANGE EST. [facility] Work Phone: Otheron 12-22-2006 CONVERTED ELECTRONIC SIGNATURE FERNANDO MARLEY M.D., PATHOLOGIST (Electronic signature on file) Final Signed Out: 12/22/2006 17:10 [facility] CONVERTED FINAL DIAGNOSIS RIGHT HUMERAL HEAD, EXCISION - DEGENERATIVE ARTHRITIS. [facility] CONVERTED ORDERING PROVIDER Ordering Provider: SIXTO NELSON [facility] Vital Signs Date Time Vital Sign Value Performing Clinician Facility 03-18-2025 20:09-0400 Body temperature 90.4 [degF] Dr. Hernando Grimes MD Work Phone: [facility] 03-18-2025 20:09-0400 Diastolic blood pressure 13 mm[Hg] Dr. Hernando Grimes MD Work Phone: [facility] 03-18-2025 20:09-0400 Heart rate 63 /min Dr. Hernando Grimes MD Work Phone: [facility] 03-18-2025 20:09-0400 Respiratory rate 14 /min Dr. Hernando Grimes MD Work Phone: [facility] 03-18-2025 20:09-0400 SaO2% (BldA) [Mass fraction] 95 % Dr. Hernando Grimes MD Work Phone: [facility] 03-18-2025 20:09-0400 Systolic blood pressure 32 mm[Hg] Dr. Hernando Grimes MD Work Phone: [facility] 03-18-2025 20:00-0400 Inhaled oxygen concentration 40 % Dr. Hernando Grimes MD Work Phone: [facility] 03-18-2025 17:48-0400 Inhaled oxygen flow rate 4 L/min Dr. Hernando Grimes MD Work Phone: [facility] 03-18-2025 14:56-0400 Body height 170.[address] Hernando Grimes MD Work Phone: [facility] 03-18-2025 14:56-0400 Body mass index (BMI) [Ratio] 38.7 kg/m2 Dr. Hernando Grimes MD Work Phone: [facility] 03-18-2025 14:56-0400 Body weight 112.[address] Hernando Grimes MD Work Phone: [facility] 10-08-2024 07:58-0400 Heart rate 80 /min Dr. Hernando Grimes MD Work Phone: [facility] 10-08-2024 06:30-0400 SaO2% (BldA) [Mass fraction] 95 % Dr. Hernando Grimes MD Work Phone: [facility] 10-07-2024 21:36-0400 Diastolic blood pressure 78 mm[Hg] Dr. Hernando Grimes MD Work Phone: [phone] [place] [address] 10-07-2024 21:36-0400 Systolic blood pressure 147 mm[Hg] Dr. Hernando Grimes MD Work Phone: 2(263)[phone] [place] [address] 10-07-2024 20:02-0400 Body temperature 98.2 [degF] Dr. Hernando Grimes MD Work Phone: 6(493)979-622986 [place] [address] 10-07-2024 20:02-0400 Respiratory rate 16 /min Dr. Hernando Grimes MD Work Phone: 1(000)[phone] [place] [address] 10-02-2024 14:29-0400 Body height 170.[address] Hernando Grimes MD Work Phone: 1(801)[phone] [place] [address] 10-02-2024 14:29-0400 Body weight 106.[address] Hernando Grimes MD Work Phone: 1(105)[phone] [place] [address] 10-01-2024 13:00-0400 Body mass index (BMI) [Ratio] 36.8 kg/m2 Dr. Hernando Grimes MD Work Phone: 1(888)[phone] [place] [address] 09-18-2024 08:25-0400 Heart rate 87 /min Dr. Hernando Grimes MD Work Phone: 3(503)502-263386 [place] [address] 09-18-2024 07:25-0400 Respiratory rate 14 /min Dr. Hernando Grimes MD Work Phone: [phone])[phone] [place] [address] 09-18-2024 07:25-0400 SaO2% (BldA) [Mass fraction] 90 % Dr. Hernando Grimes MD Work Phone: [phone])[phone] [place] [address] 09-18-2024 07:20-0400 Body temperature 97.7 [degF] Dr. Hernando Grimes MD Work Phone: [facility] 09-18-2024 07:20-0400 Diastolic blood pressure 87 mm[Hg] Dr. Hernando Grimes MD Work Phone: [facility] 09-18-2024 07:20-0400 Systolic blood pressure 160 mm[Hg] Dr. Hernando Grimes MD Work Phone: [facility] 09-16-2024 14:49-0400 Inhaled oxygen flow rate 2 L/min Dr. Hernando Grimes MD Work Phone: [facility] 09-13-2024 18:26-0400 Body height 170.[address] Hernando Grimes MD Work Phone: [facility] 09-13-2024 18:26-0400 Body mass index (BMI) [Ratio] 36.3 kg/m2 Dr. Hernando Grimes MD Work Phone: [facility] 09-13-2024 18:26-0400 Body weight 105.[address] Hernando Grimes MD Work Phone: [facility] 05-05-2022 15:52-0400 Body height 167.64 cm [facility] Work Phone: Encounters Encounter Date Encounter Type Care Provider Facility Start: 03-18-2025 ambulatory Hernando Grimes Facility:[facility] Start: 03-18-2025 Evaluation and management of inpatient Hernando Grimes Facility:[facility] Start: 03-17-[address] Hernando Grimes MD -[facility] Work Phone: Start: 03-17-2025 ambulatory Hernando Grimes Facility:[facility] Start: 03-10-[address] Hernando Grimes MD -[facility] Work Phone: Start: 03-10-2025 ambulatory Hernando Grimes Facility:[facility] Start: 03-04-2025 Non-patient / Non-visit Dr. Carlene greco MD -[facility] Start: 03-04-2025 End: 03-04-[address] Hernando Grimes MD Work Phone: -[facility] Start: 03-04-2025 End: 03-04-[address] Hernando Grimes MD -[facility] Work Phone: Start: 03-04-2025 End: 03-04-2025 ambulatory Hernandoleopoldo Grimes Facility:[facility] Start: 02-10-2025 End: 02-10-[address] Hernando Grimes MD Work Phone: -[facility] [place] Start: 02-10-2025 End: 02-10-[address] Hernando Grimes MD -[facility] [place] Work Phone: Start: 02-10-2025 End: 02-10-2025 ambulatory Hernando Grimes Facility:[facility] Start: 10-01-2024 ambulatory [facility] Facility :[facility] Start: 09-18-2024 End: 10-08-2024 Evaluation and management of inpatient Dr. Rodrigo Sanches MD -Transitional Care Unit Start: 09-18-2024 Encounter for other preprocedural examination [place] Start: 09-18-2024 Non-patient / Non-visit Dr. Mikel piedra [facility] Work Phone: Start: 09-17-2024 Non-patient / Non-visit Dr. Mikel piedra [facility] Work Phone: Start: 09-16-2024 Non-patient / Non-visit Dr. Mikel piedra [facility] Work Phone: Start: 09-15-2024 Non-patient / Non-visit Dr. Emili mora MD -[facility] Work Phone: Start: 09-14-2024 ambulatory [facility] Facility:[facility] Start: 09-14-2024 End: 09-18-2024 Evaluation and management of inpatient Dr. Fahad Cavanaugh MD -[facility] Work Phone: Start: 09-14-2024 Non-patient / Non-visit Dr. Emili mora MD -[facility] Work Phone: Start: 09-13-2024 Non-patient / Non-visit Dr. Cynthia Garcia DO -[facility] Work Phone: Start: 09-13-2024 ambulatory Fahad Cavanaugh Facility: [facility] Start: 09-12-2024 End: 09-12-2024 ambulatory Hernando Grimes Facility:[facility] Start: 09-12-2024 End: 09-12-2024 Non-patient / Non-visit Dr. Tejal Holly MD -[facility] Work Phone: Start: 09-10-2024 End: 09-10-2024 ambulatory [facility] Start: 04-29-2024 End: 04-29-2024 ambulatory Hernando Grimes Facility:[facility] Start: 10-19-2023 End: 10-19-2023 ambulatory [facility] Work Phone: Start: 10-19-2023 End: 10-19-2023 [facility] Start: 10-18-2022 End: 10-18-2022 ambulatory [facility] Work Phone: Start: 10-18-2022 End: 10-18-2022 Patient encounter procedure [facility] Start: 05-05-2022 End: 05-05-2022 ambulatory [facility] Work Phone: Start: 05-05-2022 End: 05-05-2022 Patient encounter procedure [facility]-Outpatient Bone Densitometry Start: 04-20-2022 End: 04-20-2022 ambulatory [facility] Work Phone: Start: 04-20-2022 End: 04-20-2022 Patient encounter procedure [facility]-Laboratory, Specimen Start: 04-19-2022 End: 04-19-2022 ambulatory [facility] Work Phone: Start: 04-19-2022 End: 04-19-2022 Patient encounter procedure [facility]-Laboratory, Gerard Will Start: 11-25-2021 End: 11-25-2021 Discharged Recurring [facility]-Physical Therapy Start: 12-18-2006 End: 12-18-2006 Patient encounter procedure Sixto Nelson Work Phone: [facility] Start: 12-18-2006 Results Only Sixto jordan Work Phone: [facility] Procedures Date Procedure Procedure Detail Performing Clinician Start: 03-18-2025 Plain chest X-ray Dr. Nitesh Grimes MD Work Phone: Start: 03-18-2025 Computed tomography of abdomen and pelvis with contrast Dr. Hernando Grimes MD Work Phone: Start: 03-18-2025 Carbon dioxide measu rement, partial pressure Dr. Hernando Grimes MD Work Phone: Start: 03-18-2025 Gases blood o2 satur ation only direct lisa Dr. Hernando Grimes MD Work Phone: Start: 03-18-2025 Measurement of parti al pressure of oxygen in blood Dr. Hernando Grimes MD Work Phone: Start: 03-18-[address] Hernando Grimes MD Work Phone: Start: 03-18-2025 Plain X-ray abdomen Dr. Hernando Grimes MD Work Phone: Start: 03-18-2025 Plain chest X-ray Dr. Nitesh Grimes MD Work Phone: Start: 03-18-2025 X-ray of chest, PA a nd lateral views Dr. Hernando Grimes MD Work Phone: Start: 03-18-2025 CT of head without contrast Dr. Hernando Grimes MD Work Phone: Start: 03-18-2025 Urnls dip stick/tabl et reagent auto microscopy Dr. Hernando Grimes MD Work Phone: Start: 03-18-[address] Hernando Grimes MD Work Phone: Start: 03-17-2025 CT of thorax, abdome n and pelvis with contrast Dr. Hernando Grimes MD Work Phone: Start: 02-10-2025 X-ray of chest, PA a nd lateral views Dr. Hernando Grimes MD Work Phone: Start: 09-17-2024 Clostridium difficil e detection Dr. Hernando Grimes MD Work Phone: Start: 09-15-[address] Hernando Grimes MD Work Phone: Start: 09-15-2024 Sars-cov-2 Dr. Hernando hansen MD Work Phone: Start: 09-15-2024 SARS-CoV-2, Influenz a & RSV (PCR) Dr. Hernando Grimes MD Work Phone: Start: 09-15-2024 X-ray of chest, PA a nd lateral views Dr. Hernando Grimes MD Work Phone: Start: 09-13-2024 Plain X-ray of shoulder Dr. Hernando Grimes MD Work Phone: Start: 09-13-[address] Hernando Grimes MD Work Phone: Start: 09-13-[address] Hernando Grimes MD Work Phone: Start: 09-13-2024 Gram stain microscopy Alon Grimes MD Work Phone: Start: 09-13-2024 Microbial culture, routine Dr. Hernando Grimes MD Work Phone: Start: 09-13-2024 Revision of shoulder arthroplasty Dr. Hernando Grimes MD Work Phone: Start: 09-12-2024 Methicillin resistan t Staphylococcus aureus screening test Dr. Hernando Grimes MD Work Phone: Start: 09-11-[address] Hernando Grimes MD Work Phone: Start: 09-11-2024 Gram stain microscopy Alon Grimes MD Work Phone: Start: 09-11-2024 Microbial culture, b roman fluid Dr. Hernando Grimes MD Work Phone: Start: 05-05-2022 Dual energy X-ray absorptiometry Start: 05-05-2022 Screening mammography Start: 01-27-2016 Colonoscopy Sixto izquierdo Start: 12-18-2006 CONVERTED SURGICAL PATHOLOGY Sixto Nelson Work Phone: Start: 04-11-2006 Mammography Sixto izquierdo Plan of Treatment Date Care Activity Detail Author Start: 01-26-2026 Colonoscopy COLONOSCOPY [facility] Start: 03-19-2025 Airway suction technique [facility] Start: 03-19-2025 Respiratory therapy [facility] Start: 03-19-2025 Weaning from mechanically assisted ventilation [facility] Start: 03-18-2025 Assessment of risk of venous thromboembolism [facility] Start: 03-18-2025 Catheterization of vein [facility] Start: 03-18-2025 Consultation [facility] Start: 03-18-2025 Continuous pulse oximetry [facility] Start: 03-18-2025 Creatinine [Mass/volume] in Urine collected for unspecified duration [facility] Start: 03-18-2025 Determination of Giang Agitation Sedation Scale (RASS) score with assessment for d [facility] Start: 03-18-2025 Electrolytes measurement, urine [facility] Start: 03-18-2025 Elevation of head of bed [facility] Start: 03-18-2025 Inhalation therapy procedure [facility] Start: 03-18-2025 Insertion of catheter into peripheral vein [facility] Start: 03-18-2025 Measuring intake and output [facility] Start: 03-18-2025 Mouth care [facility] Start: 03-18-2025 Notification of physician [facility] Start: 03-18-2025 Osmolality of Urine [facility] Start: 03-18-2025 Providing care according to standard [facility] Start: 03-18-2025 Referral to service [facility] Start: 03-18-2025 Respiratory pathogens DNA and RNA panel - Respiratory specimen by RANJIT with probe detection [facility] Start: 03-18-2025 Taking nasal swab [facility] Start: 03-18-2025 Tracheostomy care [facility] Start: 03-18-2025 Trial for daily interruption of sedation during mechanically assisted ventilation [facility] Start: 03-18-2025 Urea nitrogen measurement, urine [facility] Start: 03-18-2025 Vital signs measurements [facility] Start: 03-18-2025 [facility] Start: 03-18-2025 Airway suction technique [facility] Start: 03-18-2025 Respiratory therapy [facility] Start: 03-18-2025 Verification routine [facility] Start: 03-18-2025 Admission procedure [facility] Start: 03-18-2025 End: 03-18-2025 [facility] Start: 03-18-2025 Bacteria identified in Blood by Culture Blood Culture [facility] Start: 03-18-2025 Bacteria identified in Urine by Culture Urine Culture [facility] Start: 03-18-2025 Microscopic observation [Identifier] in Unspecified specimen by Gram stain [facility] Start: 03-18-2025 Respiratory Culture Respiratory Culture [facility] Start: 10-08-2024 Patient discharge [facility] Start: 10-07-2024 [facility] Start: 09-30-2024 Referral to service [facility] Start: 09-27-2024 End: 09-27-2024 [facility] Start: 09-27-2024 [facility] Start: 09-24-2024 [facility] Start: 09-19-2024 Development of care plan [facility] Start: 09-19-2024 Developing a treatment plan [facility] Start: 09-19-2024 Following clinical pathway protocol [facility] Start: 09-19-2024 Peripherally inserted central catheter care [facility] Start: 09-18-2024 Consultation [facility] Start: 09-18-2024 Peripherally inserted central catheter care [facility] Start: 09-18-2024 Contact precautions [facility] Start: 09-18-2024 [facility] Start: 09-18-2024 Contact precautions [facility] Start: 09-18-2024 Provision of activity privileges [facility] Start: 09-18-2024 Wound care [facility] Start: 09-18-2024 Admission procedure [facility] Start: 09-18-2024 Introduction of urinary catheter [facility] Start: 09-18-2024 Measuring intake and output [facility] Start: 09-18-2024 Patient referral to dietitian [facility] Start: 09-18-2024 Referral to occupational therapist [facility] Start: 09-18-2024 Referral to service [facility] Start: 09-18-2024 Vital signs measurements [facility] Start: 09-18-2024 End: 09-18-2024 [facility] Start: 09-18-2024 Application of device [facility] Start: 09-18-2024 Patient discharge [facility] Start: 09-18-2024 [facility] Start: 09-16-2024 Consultation [facility] Start: 09-15-2024 Referral to service [facility] Start: 09-14-2024 Oxygen therapy [facility] Start: 09-14-2024 Referral to service [facility] Start: 09-14-2024 Admission procedure [facility] Start: 09-14-2024 Inhalation therapy procedure [facility] Start: 09-13-2024 Application of intermittent pneumatic compression device [facility] Start: 09-13-2024 Following clinical pathway protocol [facility] Start: 09-13-2024 Recommendation to continue with treatment [facility] Start: 09-13-2024 Ambulation therapy management [facility] Start: 09-13-2024 Application of device [facility] Start: 09-13-2024 Assessment of risk of venous thromboembolism [facility] Start: 09-13-2024 Catheterization of vein [facility] Start: 09-13-2024 Following clinical pathway protocol [facility] Start: 09-13-2024 Introduction of urinary catheter [facility] Start: 09-13-2024 Measuring intake and output [facility] Start: 09-13-2024 Neurovascular assessment [facility] Start: 09-13-2024 Patient education [facility] Start: 09-13-2024 Procedure discontinued [facility] Start: 09-13-2024 Provision of activity privileges [facility] Start: 09-13-2024 Referral to occupational therapist [facility] Start: 09-13-2024 Vital signs measurements [facility] Start: 09-13-2024 Wound care [facility] Start: 09-13-2024 [facility] Start: 09-13-2024 Admission procedure [facility] Start: 09-13-2024 Consultation [facility] Start: 09-13-2024 [facility] Start: 09-13-2024 Acid Fast Bacilli Culture Acid Fast Bacilli Culture [facility] Start: 09-13-2024 Acid Fast Bacilli Smear Acid Fast Bacilli Smear [facility] Start: 09-13-2024 Blood culture Blood Culture [facility] Start: 09-13-2024 Fungal Culture Fungal Culture [facility] Start: 09-13-2024 Fungal Smear Fungal Smear [facility] Start: 09-13-2024 Acid fast bacilli culture [facility] Start: 09-13-2024 Medication education [facility] Start: 09-13-2024 Mycology culture [facility] Start: 09-11-2024 Acid Fast Bacilli Culture Acid Fast Bacilli Culture [facility] Start: 09-11-2024 Acid Fast Bacilli Smear Acid Fast Bacilli Smear [facility] Start: 09-11-2024 Fungal Culture Fungal Culture [facility] Start: 09-11-2024 Acid fast bacilli culture [facility] Start: 03-03-2020 Influenza vaccination INFLUENZA (#1) [facility] Start: 2014 ADVANCE DIRECTIVE DISCUSSION ADVANCE DIRECTIVE DISCUSSION [facility] Start: 2014 BONE DENSITY BONE DENSITY [facility] Start: 2014 PNEUMOVAX AGE 65 AND OVER WITH 5YR LOOKBACK (#1) PNEUMOVAX AGE 65 AND OVER WITH 5YR LOOKBACK (#1) [facility] Start: 09-17-2009 LIPID SCREEN LIPID SCREEN [facility] Start: 08-25-2009 DIABETES SCREEN DIABETES SCREEN [facility] Start: 04-11-2007 Mammography MAMMOGRAM [facility] Start: 1999 SHINGRIX VACCINE (1 of 2) SHINGRIX VACCINE (1 of 2) [facility] Start: 01-10-1968 Urine microalbumin profile DTAP,TDAP,TD (1 - Tdap) [facility] Start: 1967 ANNUAL PCP TEAM CHRONIC DISEASE VISIT ANNUAL PCP TEAM CHRONIC DISEASE VISIT [facility] Start: 1967 BP CONTROLLED (<130/80) BP CONTROLLED (<130/80) [facility] Start: 1967 HEPATITIS C SCREENING HEPATITIS C SCREENING [facility] Acid fast bacilli culture [facility] Alanine aminotransfe rase [Enzymatic activity/volume] in Serum or Plasma [facility] Albumin [Mass/volume ] in Serum or Plasma [facility] Alkaline phosphatase [Enzymatic activity/volume] in Serum or Plasma [facility] Anion gap in Serum o r Plasma [facility] Bacteria identified in Sputum by Respiratory culture [facility] Bilirubin, total measurement [facility] BUN/Creatinine ratio [facility] Calcium [Mass/volume ] in Serum or Plasma [facility] Carbon dioxide, tota l [Moles/volume] in Central venous blood [facility] Creatinine [Mass/vol ume] in Serum or Plasma [facility] Erythrocyte mean corpuscular volume determination [facility] Erythrocyte sediment ation rate [facility] Fungus identified in Unspecified specimen by Culture [facility] Fungus identified in Unspecified specimen by Fungus stain [facility] Glucose [Mass/volume ] in Serum or Plasma [facility] Hematocrit [Volume Fraction] of Blood [facility] Hemoglobin [Mass/vol ume] in Blood [facility] Leukocytes [#/volume ] in Blood [facility] Mean corpuscular hem oglobin concentration determination [facility] Mean corpuscular hem oglobin determination [facility] Measurement of renal function [facility] Mycobacterium sp geoff ntified in Unspecified specimen by Organism specific culture [facility] Natriuretic peptide. B prohormone N-Terminal [Mass/volume] in Serum or Plasma [facility] Neutrophil count [facility] Neutrophil percent differential count [facility] Patient Education PICC PICC [facility] D[facility] D[facility] Caring for Your PICC Dc PICC Line Flushing Home [facility] Flushing Your PICC Line at Home ED PICC Line Care [facility] Work Phone: Patient referral [facility] Work Phone: Platelets [#/volume] in Blood [facility] Potassium measurement [facility] Red blood cell count [facility] Red cell distributio n width determination [facility] Serum chloride measurement [facility] Sodium measurement [facility] Total protein measurement [facility] Urea nitrogen [Mass/ volume] in Serum or Plasma [facility] Urine culture [facility] Immunizations Immunization Date Immunization Notes Care Provider Ita tripp 04-16-2020 Influenza virus vaccine [facility] 04-26-2017 influenza, injectabl e, quadrivalent, preservative free [facility] 04-26-2017 influenza, seasonal, injectable [facility] Payers Date Payer Category Payer Unknown [id number] 2024 Medicaid [id number] 2024 Private Health Insurance [id number] 2024 Self-pay [id number] 1950 Unknown [id number] 1950 Unknown [id number] 27 Medicaid [id number] Medicare [id number] Unknown [id number] Unknown [id number] Unknown [facility] MEDICARE HMO [id number] Unknown [id number] 62 Unknown [id number] 62 Unknown [id number] 62 Unknown [id number] 62 Unknown [id number] 62 Unknown [id number] 62 Unknown [id number] 62 Unknown [id number] 62 Unknown [id number] 62 Unknown [id number] 62 Unknown [id number] 62 Unknown [id number] 62 Unknown [id number] 62 Unknown [id number] 62 Unknown [id number] 62 Unknown [id number] 62 Unknown [id number] 62 Social History Date Type Detail Facility Start: 06-12-2006 End: 03-18-2025 Tobacco smoking status CTIS Former smoker [facility] Start: 06-12-2006 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) [facility] Sex Assigned At Not on file [facility] Start: 06-11-2020 End: 06-11-2020 Tobacco smoking status CTIS Unknown if ever smoked [facility] Start: 06-11-2020 Non-smoker [facility] Start: 1950 Sex Assigned At Female [facility] Start: 09-18-2024 End: 10-08-2024 Sex Female (finding) [facility] NEGATED: Highlighted row Not [facility] Medical Equipment Procedure Code Equipment Code Equipment Origin al Text Equipment Identifier Dates Revision of shoulder arthroplasty FDA Start: 09-13-2024 Revision of shoulder arthroplasty FDA Start: 09-13-2024 Revision of shoulder arthroplasty FDA Start: 09-13-2024 Revision of shoulder arthroplasty FDA Start: 09-13-2024 Revision of shoulder arthroplasty Equinoxe Reverse Shoulder Glenosphere & Extended Locking Caps FDA Start: 09-13-2024 Revision of shoulder arthroplasty Equinoxe Reverse Shoulder Glenosphere Locking screw FDA Start: 09-13-2024 Revision of shoulder arthroplasty Equinoxe Reverse Shoulder Humeral Adapter Tray FDA Start: 09-13-2024 Revision of shoulder arthroplasty Equinoxe Reverse Shoulder Humeral Liner FDA Start: 09-13-2024 Revision of shoulder arthroplasty Equinoxe reverse shoulder fixed angle torque defining screw kit FDA Start: 09-13-2024 Revision of shoulder arthroplasty FDA Start: 09-13-2024 Revision of shoulder arthroplasty FDA Start: 09-13-2024 Revision of shoulder arthroplasty FDA Start: 09-13-2024 Revision of shoulder arthroplasty FDA Start: 09-13-2024 Revision of shoulder arthroplasty Equinoxe Reverse Shoulder Glenosphere & Extended Locking Caps FDA Start: 09-13-2024 Revision of shoulder arthroplasty Equinoxe Reverse Shoulder Glenosphere Locking screw FDA Start: 09-13-2024 Revision of shoulder arthroplasty Equinoxe Reverse Shoulder Humeral Adapter Tray FDA Start: 09-13-2024 Revision of shoulder arthroplasty Equinoxe Reverse Shoulder Humeral Liner FDA Start: 09-13-2024 Revision of shoulder arthroplasty Equinoxe reverse shoulder fixed angle torque defining screw kit FDA Start: 09-13-2024 Revision of shoulder arthroplasty FDA Start: 09-13-2024 Revision of shoulder arthroplasty FDA Start: 09-13-2024 Revision of shoulder arthroplasty FDA Start: 09-13-2024 Revision of shoulder arthroplasty FDA Start: 09-13-2024 Revision of shoulder arthroplasty Equinoxe Reverse Shoulder Glenosphere & Extended Locking Caps FDA Start: 09-13-2024 Revision of shoulder arthroplasty Equinoxe Reverse Shoulder Glenosphere Locking screw FDA Start: 09-13-2024 Revision of shoulder arthroplasty Equinoxe Reverse Shoulder Humeral Adapter Tray FDA Start: 09-13-2024 Revision of shoulder arthroplasty Equinoxe Reverse Shoulder Humeral Liner FDA Start: 09-13-2024 Revision of shoulder arthroplasty Equinoxe reverse shoulder fixed angle torque defining screw kit FDA Start: 09-13-2024 Revision of shoulder arthroplasty FDA Start: 09-13-2024 Revision of shoulder arthroplasty FDA Start: 09-13-2024 Revision of shoulder arthroplasty FDA Start: 09-13-2024 Revision of shoulder arthroplasty FDA Start: 09-13-2024 Revision of shoulder arthroplasty Equinoxe Reverse Shoulder Glenosphere & Extended Locking Caps FDA Start: 09-13-2024 Revision of shoulder arthroplasty Equinoxe Reverse Shoulder [employer]osphere Locking screw FDA Start: 09-13-2024 Revision of shoulder arthroplasty Equinoxe Reverse Shoulder Humeral Adapter Tray FDA Start: 09-13-2024 Revision of shoulder arthroplasty Equinoxe Reverse Shoulder Humeral Liner FDA Start: 09-13-2024 Revision of shoulder arthroplasty Equinoxe reverse shoulder fixed angle torque defining screw kit FDA Start: 09-13-2024 Revision of shoulder arthroplasty FDA Start: 09-13-2024 Revision of shoulder arthroplasty FDA Start: 09-13-2024 Revision of shoulder arthroplasty FDA Start: 09-13-2024 Revision of shoulder arthroplasty FDA Start: 09-13-2024 Revision of shoulder arthroplasty Equinoxe Reverse Shoulder Glenosphere & Extended Locking Caps FDA Start: 09-13-2024 Revision of shoulder arthroplasty Equinoxe Reverse Shoulder Glenosphere Locking screw FDA Start: 09-13-2024 Revision of shoulder arthroplasty Equinoxe Reverse Shoulder Humeral Adapter Tray FDA Start: 09-13-2024 Revision of shoulder arthroplasty Equinoxe Reverse Shoulder Humeral Liner FDA Start: 09-13-2024 Revision of shoulder arthroplasty Equinoxe reverse shoulder fixed angle torque defining screw kit FDA Start: 09-13-2024 Minimally invasive total replacement of hip joint by anterior approach femoral head FDA Start: 06-24-2020 Minimally invasive total replacement of hip joint by anterior approach neck angle hip stem FDA Start: 06-24-2020 Minimally invasive total replacement of hip joint by anterior approach poly insert FDA Start: 06-24-2020 Minimally invasive total replacement of hip joint by anterior approach solidback acetabular shell FDA Start: 06-24-2020 Minimally invasive total replacement of hip joint by anterior approach femoral head FDA Start: 06-24-2020 Minimally invasive total replacement of hip joint by anterior approach neck angle hip stem FDA Start: 06-24-2020 Minimally invasive total replacement of hip joint by anterior approach poly insert FDA Start: 06-24-2020 Minimally invasive total replacement of hip joint by anterior approach solidback acetabular shell FDA Start: 06-24-2020 Minimally invasive total replacement of hip joint by anterior approach femoral head FDA Start: 06-24-2020 Minimally invasive total replacement of hip joint by anterior approach neck angle hip stem FDA Start: 06-24-2020 Minimally invasive total replacement of hip joint by anterior approach poly insert FDA Start: 06-24-2020 Minimally invasive total replacement of hip joint by anterior approach solidback acetabular shell FDA Start: 06-24-2020 Minimally invasive total replacement of hip joint by anterior approach femoral head FDA Start: 06-24-2020 Minimally invasive total replacement of hip joint by anterior approach neck angle hip stem FDA Start: 06-24-2020 Minimally invasive total replacement of hip joint by anterior approach poly insert FDA Start: 06-24-2020 Minimally invasive total replacement of hip joint by anterior approach solidback acetabular shell FDA Start: 06-24-2020 Minimally invasive total replacement of hip joint by anterior approach femoral head FDA Start: 06-24-2020 Minimally invasive total replacement of hip joint by anterior approach neck angle hip stem FDA Start: 06-24-2020 Minimally invasive total replacement of hip joint by anterior approach poly insert FDA Start: 06-24-2020 Minimally invasive total replacement of hip joint by anterior approach solidback acetabular shell FDA Start: 06-24-2020 Minimally invasive total replacement of hip joint by anterior approach femoral head FDA Start: 06-24-2020 Minimally invasive total replacement of hip joint by anterior approach neck angle hip stem FDA Start: 06-24-2020 Minimally invasive total replacement of hip joint by anterior approach poly insert FDA Start: 06-24-2020 Minimally invasive total replacement of hip joint by anterior approach solidback acetabular shell FDA Start: 06-24-2020 Minimally invasive total replacement of hip joint by anterior approach femoral head FDA Start: 06-24-2020 Minimally invasive total replacement of hip joint by anterior approach neck angle hip stem FDA Start: 06-24-2020 Minimally invasive total replacement of hip joint by anterior approach poly insert FDA Start: 06-24-2020 Minimally invasive total replacement of hip joint by anterior approach solidback acetabular shell FDA Start: 06-24-2020 Minimally invasive total replacement of hip joint by anterior approach femoral head FDA Start: 06-24-2020 Minimally invasive total replacement of hip joint by anterior approach neck angle hip stem FDA Start: 06-24-2020 Minimally invasive total replacement of hip joint by anterior approach poly insert FDA Start: 06-24-2020 Minimally invasive total replacement of hip joint by anterior approach solidback acetabular shell FDA Start: 06-24-2020 Minimally invasive total replacement of hip joint by anterior approach femoral head FDA Start: 06-24-2020 Minimally invasive total replacement of hip joint by anterior approach neck angle hip stem FDA Start: 06-24-2020 Minimally invasive total replacement of hip joint by anterior approach poly insert FDA Start: 06-24-2020 Minimally invasive total replacement of hip joint by anterior approach solidback acetabular shell FDA Start: 06-24-2020 Minimally invasive total replacement of hip joint by anterior approach femoral head FDA Start: 06-24-2020 Minimally invasive total replacement of hip joint by anterior approach neck angle hip stem FDA Start: 06-24-2020 Minimally invasive total replacement of hip joint by anterior approach poly insert FDA Start: 06-24-2020 Minimally invasive total replacement of hip joint by anterior approach solidback acetabular shell FDA Start: 06-24-2020 Minimally invasive total replacement of hip joint by anterior approach femoral head FDA Start: 06-24-2020 Minimally invasive total replacement of hip joint by anterior approach neck angle hip stem FDA Start: 06-24-2020 Minimally invasive total replacement of hip joint by anterior approach poly insert FDA Start: 06-24-2020 Minimally invasive total replacement of hip joint by anterior approach solidback acetabular shell FDA Start: 06-24-2020 Goals Date Patient Goal Desired Activity /State Functional Status Date Assessment Result Facility 10-08-2024 Functional status Ambulates;Up a d shanna;Bathroom Privilege;Back to bed [facility] Work Phone: 09-18-2024 Functional status Ambulates;Ricky r;Bathroom Privilege [facility] Work Phone: 09-17-2024 Functional status Tolerates Activity Well [facility] Work Phone: Mental Status Date Assessment Result Facility 10-08-2024 Cognitive function Voice/Name [facility] Work Phone: 10-05-2024 Cognitive function Appropriate;Cooperatiseble dowling [facility] Work Phone: 09-18-2024 Cognitive function Voice/Name [facility] Work Phone: Clinical Notes 09-13-2024 to 03-18-2025 Note Date & Type Note Facility 03-18-2025 History and physi ronen note [facility] 03-18-2025 Radiology Diagnostic study note [facility] Imaging Services [address] [place], [place] [id number] CTA Abd/Pelvis W/WO Contrast MR#: [id number] Acct: [id number] Name: OSCAR WOO Rep #: [id number] : 1950 F 75 From: Kamran Leonard MD PCP: Dr. Hernando Grimes MD Status: ADM IN Study:CTA Abd/Pelvis W/WO Contrast Date of Ex am: 03/18/25 Exam# [id number] Ordering Dr: Mai Levy MD PROCEDURE: CTA ABD/PELVIS W/WO CONTRAST 03/18/2025 REASON FOR EXAM: RULE OUT RUPTURE AAA TECHNIQUE: Procedure Code: [id number] Modality: CT Procedure: CTA ABD/PELVIS W/WO CONTRAST Multiplanar Sagittal and Coronal images were obtained. 3D / MIP post processingwas performed. CONTRAST: Isovue 370 VOLUME: 92 mL One or more dose reduction techniques were used (e.g., Automated exposure control, adjustment of the mA and/or kV according to patient size, use of iterative reconstruction technique). RADIATION DOSE SUMMARY: DLP: 1390.31 mGycm COMPARISON: Abdominal CTA 03/17/2025. FINDINGS: AORTA: Diffuse tortuosity of the abdominal aorta, with moderate atherosclerotic disease. Stable infrarenal saccular aneurysm just above the iliac bifurcation, measuring up to 4.4 x 4 cm. Major branch vessels are patent, normal in course and caliber. No dissection. HEPATOBILIARY: Hepatic steatosis. Otherwise within normal limits. GENITOURINARY: Redemonstrated indeterminate right adrenal gland nodule measuringup to 15 mm. Few bilateral simple appearing small renal cysts. No hydronephrosis. Urinary bladder decompressed around a Day catheter. Unremarkable appearance of the uterus and adnexae. GI TRACT: Enteric tube terminates within the stomach. No evidence of bowel obstruction or active inflammatory process. Appendix is surgically absent. Mild distal colonic diverticulosis without evidence for active diverticulitis/colitis. PERITONEUM/RETROPERITONEUM: No ascites or free air. No lymphadenopathy. MUSCULOSKELETAL: Bilateral hip arthroplasties. Multilevel degenerative changes of the spine. Postoperative changes of multilevel dorsal decompressive laminectomies from L2-L4. CT/CTA Abd/Pelvis W/WO Contrast IMPRESSION: 1. No acute or active inflammatory intra-abdominal pathology. 2. Stable saccular infrarenal abdominal aortic aneurysm measuring up to 4.4 cm. 3. Indeterminate 15 mm right adrenal gland nodule, probably adenoma. Suggest follow-up dedicated adrenal CT or MRI in 12 months to assess stability. Reading Location: [facility] CC: Dr. Hernando Grimes MD; Dr. Deion Levy MD ~ Video Manager: Signed [facility] 03-18-2025 Radiology Diagnostic study note [facility] Imaging Services [address] [place] [id number] Chest 1 View (Portable) MR#: [id number] Acct: [id number] Name: OSCAR WOO Rep #: [id number] : 1950 F 75 From: Kamran Leonard MD PCP: Dr. Hernando Grimes MD Status: ADM IN Study:Chest 1 View (Portable) Date of Exam: 03/18/25 Exam# [id number] Ordering Dr: Mai Levy MD PROCEDURE: CHEST 1 VIEW (PORTABLE) 03/18/2025 REASON FOR EXAM: LINE PLACEMENT TECHNIQUE: Frontal view of the chest. COMPARISON: Earlier same day 03/18/2025. FINDINGS: Endotracheal tube in stable positioning, tip roughly 2.7 cm above the abigail. Enteric tube appears in stable positioning, distal tip collimated from view. Newly placed right subclavian approach central venous catheter, tip at the lowerSVC. Stable cardiomegaly. Unchanged lung aeration. No acute osseous abnormality. RAD/Chest 1 View (Portable) IMPRESSION: 1. New right subclavian approach central venous catheter, tip at the lower SVC. 2. Stable positioning of the endotracheal and enteric tubes. 3. Unchanged lung aeration. Stable cardiomegaly. Reading Location: [facility] CC: Dr. Hernando Grimes MD; Dr. Deion Levy MD ~ Video Manager: Signed [facility] 03-18-2025 Radiology Diagnostic study note [facility] Imaging Services [address] [place], [place] [id number] Chest 1 View (Portable) MR#: [id number] Acct: [id number] Name: OSCAR WOO Rep #: [id number] : 1950 F 75 From: Kamran Leonard MD PCP: Dr. Hernando Grimes MD Status: [facility] ER Study:Chest 1 View (Portable) Date of Exam: 03/18/25 Exam# [id number] Ordering Dr: Mai Levy MD PROCEDURE: CHEST 1 VIEW (PORTABLE) 03/18/2025 REASON FOR EXAM: INTUBATION TECHNIQUE: Frontal view of the chest. COMPARISON: Earlier same day 03/18/2025 FINDINGS: Endotracheal tube in place terminating 3.1 cm above the abigail. Enteric tube courses midline extending below the diaphragm into the upper midabdomen. Cardiomegaly. Increased vascular and interstitial markings, possible interstitial edema. No pneumothorax or sizable pleural effusion. Mild left basilar linear/discoid atelectasis. Multilevel degenerative changes of the spine. Partially imaged bilateral shoulder arthroplasty hardware. RAD/Chest 1 View (Portable) IMPRESSION: 1. Endotracheal tube tip 3.1 cm above the abigail. 2. Enteric tube appropriately positioned terminating in the upper midabdomen. 3. Cardiomegaly, with increased vascular markings and possible interstitial edema. Reading Location: [facility] CC: Dr. Hernando Grimes MD; Dr. Deion Levy MD ~ Video Manager: Signed [facility] 03-18-2025 Radiology Diagnostic study note [facility] Imaging Services [address] [place], [place] [id number] Abdomen Single View (Portable) MR#: [id number] Acct: [id number] Name: OSCAR WOO Rep #: [id number] : 1950 F 75 From: Kamran Leonard MD PCP: Dr. Hernando Grimes MD Status: REG ER Study:Abdomen Single View (Portable) Date of Exam: 03/18/25 Exam# [id number] Ordering Dr: Mai Levy MD PROCEDURE: ABDOMEN SINGLE VIEW (PORTABLE) 03/18/2025 REASON FOR EXAM: NG INSERTION TECHNIQUE: Procedure Code: RADABD_P Modality: DX Procedure: ABDOMEN SINGLE VIEW (PORTABLE) COMPARISON: Abdominal CT 03/17/2025. FINDINGS: Enteric tube courses midline extending below the diaphragm into the upper midabdomen, side port/distal tip terminating in the expected location of the stomach. Visualized bowel gas pattern is nonobstructive. No free subdiaphragmatic air. Persistent IV contrast opacifying the kidneys suggesting delayed excretion with medical renal disease. Multilevel degenerative changes of the visualized spine. Cardiomegaly. RAD/Abdomen Single View (Portable) IMPRESSION: Enteric tube terminates appropriately within the stomach. Persistent IV contrast opacifying the kidneys suggesting medical renal disease with delayed excretion. Reading Location: [facility] CC: Dr. Hernando Grimes MD; Dr. Deion Levy MD ~ Video Manager: Signed [facility] 03-18-2025 Radiology Diagnostic study note [facility] Imaging Services [address] [place], [place] [address] Chest PA and Lateral MR#: [id number] Acct: [id number] Name: OSCAR WOO Rep #: [id number] : 1950 F 75 From: Janelle Mares MD PCP: Dr. Hernando Grimes MD Status: REG ER Study:Chest PA and Lateral Date of Exam: 03/18/25 Exam# [id number] Ordering Dr: Mai Levy MD PROCEDURE: CHEST PA AND LATERAL 03/18/2025 REASON FOR EXAM: TACHYPNEA TECHNIQUE: Procedure Code: RADCXR Modality: DX Procedure: CHEST PA AND LATERAL FINDINGS: Hardware: Multiple monitoring leads overlying chest wall. Heart: Heart size is mildly enlarged. Mediastinum: The mediastinal contour is stable. Lungs: Bilateral low lung volumes. Bones: Degenerative changes of visualized spine.Status post bilateral reverse shoulder arthroplasty with surgical hardware demonstrating gross anatomic alignment RAD/Chest PA and Lateral IMPRESSION: Bilateral low lung volumes. No acute cardiopulmonary abnormality. Reading Location: [id number] CC: Dr. Hernando Grimes MD; Dr. Deion Levy MD ~ Video Manager: Signed [facility] 03-18-2025 Radiology Diagnostic study note [facility] Imaging Services [address] [place] [id number] Brain/Head without Contrast MR#: [id number] Acct: [id number] Name: OSCAR WOO Rep #: [id number] : 1950 F 75 From: Jennifer Shin MD PCP: Dr. Hernando Grimes MD Status: REG ER Study:Brain/Head without Contrast Date of Exa m: 03/18/25 Exam# [id number] Ordering Dr: Mai Levy MD PROCEDURE: BRAIN/HEAD WITHOUT CONTRAST 03/18/2025 REASON FOR EXAM: ALTERED MENTAL STATUS STATUS POST HEAD TRAUMA TECHNIQUE: Procedure Code: CTBR Modality: CT Procedure: BRAIN/HEAD WITHOUT CONTRAST Coronal and Sagittal reconstruction series were provided. One or more dose reduction techniques were used (e.g., Automated exposure control, adjustment of the mA and/or kV according to patient size, use of iterative reconstruction technique. RADIATION DOSE SUMMARY: DLP: 796 mGycm COMPARISON: None FINDINGS: There is no acute infarct, intracranial hemorrhage, or mass effect. There is no hydrocephalus or significant midline shift. There is mild chronic microvascular ischemic changes and mild parenchymal volumeloss. No acute, depressed calvarial fractures. No large scalp hematomas. The paranasal sinuses are clear. Bilateral lens surgery. CT/Brain/Head without Contrast IMPRESSION: No acute intracranial process. Reading Location: [facility] CC: Dr. Hernando Grimes MD; Dr. Deion Levy MD ~ Video Manager: Signed [facility] 02-10-2025 Radiology Diagnostic study note [facility] Imaging Services [address] [place] [address] Chest PA and Lateral MR#: [id number] Acct: [id number] Name: OSCAR WOO Rep #: [id number] : 1950 F 75 From: Kaushal Orozco DO PCP: Dr. Hernando Grimes MD Status: REG CLI Study:Chest PA and Lateral Date of Exam: 02/10/25 Exam# [id number] Ordering Dr: Blas Grimes MD PROCEDURE: CHEST PA AND LATERAL 02/10/2025 REASON FOR EXAM: R RALES TECHNIQUE: CHEST PA AND LATERAL COMPARISON: Chest x-ray study dated 09/15/2024 FINDINGS: Hardware: Bilateral visualized shoulder hardware appears to be intact without evidence of fracture or loosening. The entire components are not entirely included on this study. Heart: Heart size and configuration are within normal limits. Mediastinum: Mediastinal silhouette is within normal limits. Arteriosclerotic vascular disease of the aorta is noted. Trachea is midline. Lungs: Prominent interstitial markings are identified in the lung bases bilaterally and are similar when compared to the prior exam. There is no atelectasis, consolidation, effusion or pneumothorax. Emphysematous changes are noted. Bones: Diffuse osteopenia of the bony thorax is noted. The right PICC line catheter seen on the prior exam has been removed in the interim. RAD/Chest PA and Lateral IMPRESSION: The overall chest x-ray findings are similar when compared to the prior exam. Reading Location: [id number] CC: Dr. Hernando Grimes MD ~ Video Manager: Signed [facility] 10-08-2024 Hospital Discharge instructions Additional Instructions Discharge home 10/08/2024, IV ATB thru 10/25/2024, [facility] PT/SN. [facility] Work Phone: 10-07-2024 Progress note Note Date/Time October 07, 2024 7:23 pm [facility] Medical Records Department [address] [place] [address] Progress Note - Infect Disease 10/07/241920 MR#: [id number] Acct: [id number] Name: OSCAR WOO Rep #:[id number] : 1950 74 From: Sixto calhoun MD PCP: Dr. Hernando Grimes MD Status:ADM IN Location: [id number] Physical Exam Narrative New bilat eye redness and itching last night. No drainage, no fever. Given eyedrops and steroids, sx improving today. No fever, shoulder doing well. 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 Taken to OR 09/13/[address] Cavanaugh for revision; surg cx x2 with MSSA. Picc in place. Plan is for iv vanc and po rifampin for 6 weeks with stop date 10/25/24 with weekly bmp, cbc, LFT, and ESR. After that, will need long course suppressive po abx. New conjunctivitis, improved with gtts and steroids. Low suspicion for allergic reaction, will restart vanc and monitor. D/w nursing. Will follow 10/07/241922 <Electronically signed by Sixto Andrade MD> Cosigner Signature (if applicable): CC: ~ Signed [facility] Work Phone: [phone]) 115-749204-07-2025 Progress note [facility] Medical Records Department [address] [place] [address] Progress Note - Infect Disease 10/07/241920 MR#: [id number] Acct: [id number] Name: OSCAR WOO Rep #:[id number] : 1950 74 From: Sixto calhoun MD PCP: Dr. Hernando Grimes MD Status:ADM IN Location: [facility]12-01 Physical Exam Narrative New bilat eye redness and itching last night. No drainage, no fever. Given eyedrops and steroids, sx improving today. No fever, shoulder doing well. 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 Taken to OR 09/13/[address] Cavanaugh for revision; surg cx x2 with MSSA. Picc in place. Plan is for iv vanc and po rifampin for 6 weeks with stop date 10/25/24 with weekly bmp, cbc, LFT, and ESR. After that, will need long course suppressive po abx. New conjunctivitis, improved with gtts and steroids. Low suspicion for allergic reaction, will restart vanc and monitor. D/w nursing. Will follow 10/07/241922 Cosigner Signature (if applicable): CC: ~ Signed [facility]04-07-2025 Consult note Author Ashley Sue [facility] Note Date/Time October 07, 2024 2:14 pm [facility] Medical Records Department [address] [place] [address] Pharmacokinetic/Renal -Consult 09/29/24 1013 MR#: [id number] Acct: [id number] Name: OSCAR WOO Rep #:[id number] : 1950 74 From: Ashley Sue PCP: Dr. Hernando Grimes MD Status:ADM IN Y Location: [facility]12-01 Consult Antibiotic Management Pharmacy has been consulted to manage selected antibiotic: Vancomycin Type of Intervention Type of Consult: Follow-up Labs Labs: Sodium 139 mmol/L (133-145) 09/26/24 07:12 Potassium 5.0 mmol/L (3.3-5.1) 09/26/24 07:12 Chloride 100 mmol/L (98-108) 09/26/24 07:12 Carbon Dioxide 27.3 mmol/L (21.0-32.0) 09/26/24 07:12 Anion Gap 12 (5-15) 09/26/24 07:12 BUN 29 mg/dL (4-19) H 09/26/24 07:12 Creatinine 1.13 mg/dL (0.70-1.20) 09/26/24 07:12 Est GFR (MDRD) Non-Af 51 (>60) L 09/26/24 07:12 BUN/Creatinine Ratio 25.8 RATIO (10-20) H 09/26/24 07:12 Glucose 100 mg/dL (70-99) H 09/26/24 07:12 Vancomycin Trough 15.6 ug/mL (5.0-15.0) H 09/29/24 08:30 Pharmacy Plan for Drug Dosing Pharmacy Plan for Drug Dosing: VANCOMYCIN LEVEL RECEIVED Current Vancomycin Dose: 1250 MG Q24 Number of Doses Received: many Vancomycin Level: 15.6 mg/dL Hours Since Last Dose: 22.5 Renal Function: SCr 1.13 mg/dL (from 09/26), CrCl 54 mL/min Renal Function Trend: stable Vancomycin Plan/Comments: 22.5 hour trough is slightly supratherapeutic at 15.6mg/dL (goal 10-15). Will continue current dose as trough was only slightly elevated and the level was at 22.5 hours. The level likely would've been in range if trough was closer to 24 hours. Patient has been fairly consistent on this dose. Will repeat a trough in 2 days to make sure level is within range. Pending Level: 10/01/24 @ 0830 Pharmacy Service will continue to monitor and adjust dosing as required. 09/29/24 1014 <Electronically signed by Ashley Sue> Date _ Ashley Sue 10/07/24 1414 <Electronically signed by Sixto montoya MD> Cosigner Signature (if applicable): Date Sixto Andrade MD CC: ~ Signed [facility] Work Phone: [phone]) 375-371604-07-2025 Consult note Author Tino Law [facility] Note Date/Time October 07, 2024 2:14 pm [facility] Medical Records Department [address] [place] [address] Pharmacokinetic/Renal -Consult 10/01/24912 MR#: [id number] Acct: [id number] Name: OSCAR WOO Rep #:[id number] : 1950 74 From: Tino Law PCP: Dr. Hernando Grimes MD Status:ADM IN Location: [place] [address] Consult Antibiotic Management Pharmacy has been consulted to manage selected antibiotic: Vancomycin Type of Intervention Type of Consult: Follow-up Suspected Infection Suspected Infection: Skin/Soft tissue Prior Doses of Antibiotics Prior Doses of Antibiotics Received/Current Regimen: Vancomycin 1250 mg IV Q24H last dose given 09/30 @ 0840 Labs Labs: Sodium 139 mmol/L (133-145) 09/26/24 07:12 Potassium 5.0 mmol/L (3.3-5.1) 09/26/24 07:12 Chloride 100 mmol/L (98-108) 09/26/24 07:12 Carbon Dioxide 27.3 mmol/L (21.0-32.0) 09/26/24 07:12 Anion Gap 12 (5-15) 09/26/24 07:12 BUN 29 mg/dL (4-19) H 09/26/24 07:12 Creatinine 1.13 mg/dL (0.70-1.20) 09/26/24 07:12 Est GFR (MDRD) Non-Af 51 (>60) L 09/26/24 07:12 BUN/Creatinine Ratio 25.8 RATIO (10-20) H 09/26/24 07:12 Glucose 100 mg/dL (70-99) H 09/26/24 07:12 Vancomycin Trough 13.2 ug/mL (5.0-15.0) 10/01/24 08:20 Dosing Weight Weight used for dosin kg Estimated Creatinine Clearance Estimated Creatinine Clearance: ~ 54 Goal Trough Goal Trough: 10-15 mcg/mL Pharmacy Plan for Drug Dosing Pharmacy Plan for Drug Dosing: Vancomycin trough = 13.2, continue current dosing. Pharmacy Service will continue to monitor and adjust dosing as required. Follow-Up Labs Follow-Up Labs: Trough: Vancomycin Date/Time Labs Ordered Labs to be done on [date and time ordered]: 10/06 @ 0830 10/01/24 0914 <Electronically signed by Tino calhoun> Date _ Tino Law 10/07/24 1414 <Electronically signed by Sixto montoya MD> Cosigner Signature (if applicable): Date __ Sixto Andrade MD CC: ~ Signed [facility] Work Phone: 1(644) 581-833204-07-2025 Consult note [facility] Medical Records Department [address] [facility] [place] [address] Pharmacokinetic/Renal -Consult 09/29/24 1013 MR#: [id number] Acct: [id number] Name: OSCAR WOO Rep #:[id number] : 1950 74 From: Ashley Sue PCP: Dr. Hernando Grimes MD Status:ADM IN Location: [facility]06- Consult Antibiotic Management Pharmacy has been consulted to manage selected antibiotic: Vancomycin Type of Intervention Type of Consult: Follow-up Labs Labs: Sodium 139 mmol/L (133-145) 09/26/24 07:12 Potassium 5.0 mmol/L (3.3-5.1) 09/26/24 07:12 Chloride 100 mmol/L (98-108) 09/26/24 07:12 Carbon Dioxide 27.3 mmol/L (21.0-32.0) 09/26/24 07:12 Anion Gap 12 (5-15) 09/26/24 07:12 BUN 29 mg/dL (4-19) H 09/26/24 07:12 Creatinine 1.13 mg/dL (0.70-1.20) 09/26/24 07:12 Est GFR (MDRD) Non-Af 51 (>60) L 09/26/24 07:12 BUN/Creatinine Ratio 25.8 RATIO (10-20) H 09/26/24 07:12 Glucose 100 mg/dL (70-99) H 09/26/24 07:12 Vancomycin Trough 15.6 ug/mL (5.0-15.0) H 09/29/24 08:30 Pharmacy Plan for Drug Dosing Pharmacy Plan for Drug Dosing: VANCOMYCIN LEVEL RECEIVED Current Vancomycin Dose: 1250 MG Q24 Number of Doses Received: many Vancomycin Level: 15.6 mg/dL Hours Since Last Dose: 22.5 Renal Function: SCr 1.13 mg/dL (from 09/26), CrCl 54 mL/min Renal Function Trend: stable Vancomycin Plan/Comments: 22.5 hour trough is slightly supratherapeutic at 15.6mg/dL (goal 10-15). Will continue current dose as trough was only slightly elevated and the level was at 22.5 hours. Thelevel likely would've been in range if trough was closer to 24 hours. Patient has been fairly consistent on this dose. Will repeat a trough in 2 days to make sure level is within range. Pending Level: 10/01/24 @ 0830 Pharmacy Service will continue to monitor and adjust dosing as required. 09/29/24 1014 Date _ Ashley Sue 10/07/24 1414 jan COTTER> Yanick Signature (if applicable): Date Sixto Andrade MD CC: ~ Signed [facility]04-07-2025 Consult note [facility] Medical Records Department [address] [place] [address] Pharmacokinetic/Renal -Consult 10/01/24912 MR#: [id number] Acct: [id number] Name: OSCAR WOO Rep #:[id number] : 1950 74 From: Tino Law PCP: Dr. Hernando Grimes MD Status:ADM IN Y Location: [place] [address] Consult Antibiotic Management Pharmacy has been consulted to manage selected antibiotic: Vancomycin Type of Intervention Type of Consult: Follow-up Suspected Infection Suspected Infection: Skin/Soft tissue Prior Doses of Antibiotics Prior Doses of Antibiotics Received/Current Regimen: Vancomycin 1250 mg IV Q24H last dose given 09/30 @ 0840 Labs Labs: Sodium 139 mmol/L (133-145) 09/26/24 07:12 Potassium 5.0 mmol/L (3.3-5.1) 09/26/24 07:12 Chloride 100 mmol/L (98-108) 09/26/24 07:12 Carbon Dioxide 27.3 mmol/L (21.0-32.0) 09/26/24 07:12 Anion Gap 12 (5-15) 09/26/24 07:12 BUN 29 mg/dL (4-19) H 09/26/24 07:12 Creatinine 1.13 mg/dL (0.70-1.20) 09/26/24 07:12 Est GFR (MDRD) Non-Af 51 (>60) L 09/26/24 07:12 BUN/Creatinine Ratio 25.8 RATIO (10-20) H 09/26/24 07:12 Glucose 100 mg/dL (70-99) H 09/26/24 07:12 Vancomycin Trough 13.2 ug/mL (5.0-15.0) 10/01/24 08:20 Dosing Weight Weight used for dosin kg Estimated Creatinine Clearance Estimated Creatinine Clearance: ~ 54 Goal Trough Goal Trough: 10-15 mcg/mL Pharmacy Plan for Drug Dosing Pharmacy Plan for Drug Dosing: Vancomycin trough = 13.2, continue current dosing. Pharmacy Service will continue to monitor and adjust dosing as required. Follow-Up Labs Follow-Up Labs: Trough: Vancomycin Date/Time Labs Ordered Labs to be done on [date and time ordered]: 10/06 @ 0830 10/01/24 0914 r> Date _ Tino Law 10/07/24 1414 jan COTTER> Yanick Signature (if applicable): Date __ Sixto Andrade MD CC: ~ Signed [facility]04-06-2025 Consult note Author Jonh Khalil [facility] Note Date/Time October 06, 2024 12:5 3pm [facility] Medical Records Department [address] [place] [address] Pharmacokinetic/Renal -Consult 10/06/24 0956 MR#: [id number] Acct: [id number] Name: OSCAR WOO Rep #:[id number] : 1950 74 From: Jonh kurtz PCP: Dr. Hernando Grimes MD Status:ADM IN Location: [place] [address] Consult Antibiotic Management Pharmacy has been consulted to manage selected antibiotic: Vancomycin Type of Intervention Type of Consult: Follow-up Prior Doses of Antibiotics Prior Doses of Antibiotics Received/Current Regimen: current dose is vanc 1250mg IV q24h Labs Labs: Sodium 139 mmol/L (133-145) 10/03/24 06:33 Potassium 4.4 mmol/L (3.3-5.1) 10/03/24 06:33 Chloride 100 mmol/L (98-108) 10/03/24 06:33 Carbon Dioxide 27.3 mmol/L (21.0-32.0) 10/03/24 06:33 Anion Gap 11 (5-15) 10/03/24 06:33 BUN 27 mg/dL (4-19) H 10/03/24 06:33 Creatinine 1.09 mg/dL (0.70-1.20) 10/03/24 06:33 Est GFR (MDRD) Non-Af 53 (>60) L 10/03/24 06:33 BUN/Creatinine Ratio 24.6 RATIO (10-20) H 10/03/24 06:33 Glucose 96 mg/dL (70-99) 10/03/24 06:33 Vancomycin Trough 13.6 ug/mL (5.0-15.0) 10/06/24 08:31 Dosing Weight Weight used for dosin kg Estimated Creatinine Clearance Estimated Creatinine Clearance: 56ml/min Goal Trough Goal Trough: 10-15 mcg/mL Pharmacy Plan for Drug Dosing Pharmacy Plan for Drug Dosing: The vanc trough drawn at 08:31 today (approx 23.5 hours after the last dose) was13.6 mcg/ml. This is in goal range again so will keep same dose. Repeat a trough in 5 days. Pharmacy Service will continue to monitor and adjust dosing as required. Follow-Up Labs Follow-Up Labs: Trough: Vancomycin Date/Time Labs Ordered Labs to be done on [date and time ordered]: 10/11/24 08:30 10/06/24 0958 <Electronically signed by Jonh Cook erg> Date _ Jonh Khalil 10/06/24 1253 <Electronically signed by Rodrigo Chi> Cosigner Signature (if applicable): Date Rodrigo Sanches MD CC: ~ Signed [facility] Work Phone: 1(991) 986-981804-06-2025 Consult note [facility] Medical Records Department [address] [place] [address] Pharmacokinetic/Renal -Consult 10/06/24 0956 MR#: [id number] Acct: [id number] Name: OSCAR WOO Rep #:[id number] : 1950 74 From: Jonh kurtz PCP: Dr. Hernando Grimes MD Status:ADM IN Location: [place] [address] Consult Antibiotic Management Pharmacy has been consulted to manage selected antibiotic: Vancomycin Type of Intervention Type of Consult: Follow-up Prior Doses of Antibiotics Prior Doses of Antibiotics Received/Current Regimen: current dose is vanc 1250mg IV q24h Labs Labs: Sodium 139 mmol/L (133-145) 10/03/24 06:33 Potassium 4.4 mmol/L (3.3-5.1) 10/03/24 06:33 Chloride 100 mmol/L (98-108) 10/03/24 06:33 Carbon Dioxide 27.3 mmol/L (21.0-32.0) 10/03/24 06:33 Anion Gap 11 (5-15) 10/03/24 06:33 BUN 27 mg/dL (4-19) H 10/03/24 06:33 Creatinine 1.09 mg/dL (0.70-1.20) 10/03/24 06:33 Est GFR (MDRD) Non-Af 53 (>60) L 10/03/24 06:33 BUN/Creatinine Ratio 24.6 RATIO (10-20) H 10/03/24 06:33 Glucose 96 mg/dL (70-99) 10/03/24 06:33 Vancomycin Trough 13.6 ug/mL (5.0-15.0) 10/06/24 08:31 Dosing Weight Weight used for dosin kg Estimated Creatinine Clearance Estimated Creatinine Clearance: 56ml/min Goal Trough Goal Trough: 10-15 mcg/mL Pharmacy Plan for Drug Dosing Pharmacy Plan for Drug Dosing: The vanc trough drawn at 08:31 today (approx 23.5 hours after the last dose) was13.6 mcg/ml. This is in goal range again so will keep same dose. Repeat a trough in 5 days. Pharmacy Service will continue to monitor and adjust dosing as required. Follow-Up Labs Follow-Up Labs: Trough: Vancomycin Date/Time Labs Ordered Labs to be done on [date and time ordered]: 10/11/24 08:30 10/06/24 0958 erg> Date _ Jonh Khalil 10/06/24 1253 D> Cosigner Signature (if applicable): Date Rodrigo Sanches MD CC: ~ Signed [facility]04-01-2025 Discharge summary Author Rodrigo Myron [facility] Note Date/Time October 01, 2024 8:03 pm [facility] Medical Records Department [address] [place] [address] Discharge Summary 10/01/241955 MR#: [id number] Acct: [id number] Name: OSCAR WOO Rep #:[id number] : 1950 74 From: Rodrigo Sanches MD PCP: Dr. Hernando Grimes MD Status:ADM IN Location: T[facility] [place] [address] Providers Date of Admission: 09/18/24 Primary Care Physician: Dr. Hernando Grimes MD Consultations 09/18/24 20:57 Consult: Infectious Disease Routine Consulting Provider: Sixto Andrade Reason for Consult: Left shoulder periprosthetic infection mssa/mrsa s/p cleanout. 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 Cavanaugh, postoperative course complicated by acute respiratory failure with hypoxia, admitted to TCU with debility, here for rehabilitation, strengthening, intravenous antbiotics, prior to discharge home alone. * Debility - PT/OT. * Pain - Tylenol 1000mg q8, Oxycodone 5-10mg q4h prn. * Bowel - senna/colace 1 tablet daily, Dulcolax 10mg pr daily prn, Magnesium citrate 300mL po x 1 prn, Loperamide 2mg q2h prn. * Adult immunization - Administer pneumonia vaccine, covid vaccine, flu vaccine as appropriate. * DVT prophylaxis - Aspirin 81mg bid thru 09/28/2024. * Hypertension - Metoprolol 25mg bid, Amlodipine 5mg bid, Losartan 50mg bid, Indapamide 2.5mg daily. 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 * Dry eyes - Artificial tears 2gtt ou q1h prn. * GERD - Famotidine 20mg daily. * Neuropathic pain - Gabapentin 600mg qhs. * Insomnia - Melatonin 10mg qhs. * Skin irritation - Calmoseptine topical bid. * Restless leg syndrome - Mirapex 0.5mg dinner, 1mg qhs. 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 Andrade for expert care. * Gas - Simethicone 80mg tid prn. Medications at Discharge Home Medications losartan 50 mg tablet 50 mg PO BID BP 09/19/14 melatonin 5 mg tablet 10 mg PO QHS INSOMNIA 09/19/14 indapamide 1.25 mg tablet 2.5 mg PO DAILY BP 04/12/17 pramipexole 0.5 mg tablet (Mirapex) 1 mg PO QHS RLS 04/12/17 bupropion HCl 300 mg 24 hr tablet, extended release 150 mg PO DAILY DEPRESSION 06/11/20 gabapentin 600 mg tablet 600 mg PO QHS SLEEP 06/11/20 mirtazapine 15 mg tablet 15 mg PO QHS INSOMNIA 06/24/20 amlodipine 10 mg tablet 5 mg PO BID BP 09/11/24 duloxetine 30 mg capsule,delayed release (Cymbalta) 30 mg PO DAILY DEPRESSION 09/11/24 pramipexole 0.5 mg tablet 0.5 mg PO DINNER RLS 09/11/24 rifampin 300 mg capsule 300 mg PO BID antibiotic 39 days #78 caps 09/16/24 vancomycin 1 gram/200 mL in dextrose 5 % intravenous piggyback 1,000 mg IV Q24H infection 39 days #3,900 mL 09/16/24 acetaminophen 500 mg tablet 1,000 mg (2 x 500 mg) PO Q8 pain #1 TAB 09/17/24 aspirin 81 mg chewable tablet 81 mg PO BID blood thinner #0 tabs 09/17/24 famotidine 20 mg tablet 20 mg PO DAILY reflux #0 tabs 09/17/24 loperamide 2 mg capsule 2 mg PO Q2H PRN PRN DIARRHEA #0 caps 09/17/24 metoprolol tartrate 25 mg tablet 25 mg PO BID pulse/BP #0 tabs 09/17/24 sennosides 8.6 mg-docusate sodium 50 mg tablet (Stimulant Laxative Plus) 1 tab PO DAILY stool softener #0 tabs 09/17/24 simethicone 40 mg/0.6 mL oral drops,suspension (Infants Simethicone) 80 mg (1.2 mL) PO TID PRN Gas #0 mL 09/17/24 Hospital Course Operations - (See below.) Procedures None Summary of Care Provided Minutes Spent on Discharge: 35 Hospital Course: 74 year old female with below past medical history hospitalized for left shoulder periprosthetic joint infection, underwent irrigation debridement complete synovectomy, revision left reverse total shoulder replacement 09/13/2024with Dr. Cavanaugh, postoperative course complicated by acute respiratory failure with hypoxia, admitted to TCU with debility, here for rehabilitation, strengthening, intravenous antibiotics, prior to discharge home alone. Discharge home 10/08/2024, IV ATB thru 10/25/2024, [facility] PT/SN. Physical Exam Const alert General Appearance: cooperative HEENT normocephalic Eyes PERRL and EOMs intact bilaterally Neck supple, no JVD and no carotid bruits Resp normal respiratory effort, normal air movement and clear to auscultation bilaterally Cardio regular rate and regular rhythm GI normal to inspection, nondistended, normoactive bowel sounds, non-tender and non-distended Extremity normal capillary refill Extremity Narrative: RUE PICC line, LUE sling/immobilizer. General Extremity: Negative for edema Skin no rashes or lesions noted General Skin Exam: no breakdown Psych affect normal Appearance: appropriate Weight / BMI Weight Weight: 106.594 kg Body Mass Index (BMI) 36.8 ABG / Lab / Microbiology Data 09/26/24 07:12 09/26/24 07:12 Laboratory: Laboratory Results - last 24 hr 10/01/24 08:20: Vancomycin Trough 13.2 D/C Instructions Discharge Diet: No restrictions Discharge Activity: Return to Normal Activity, May Shower and Use Walker Weight Bearing Status: No weight bearing (Left upper extremity.) Call your doctor if you observe: Fever of 101 or Higher, Inability to urinate, Inability to have a bowel movement, Shortness of breath, Dizziness, Fainting spells, Swelling in the ankles, Chest pain and Uncontrolled pain DC O2, CPAP, BIPAP Needs Home O2 Discharge instructions: No Additional Instructions: Discharge home 10/08/2024, IV ATB thru 10/25/2024, [facility] PT/SN. Please Follow Up With: Fahad Cavanaugh MD When: As scheduled. Meaningful Use Info Meaningful Use Meaningful Use Diagnoses (Choose all that apply): None applicable Ischemic Stroke Statin Dosing Therapy Reference: STATIN DOSE THERAPY REFERENCE: * Patients > 75 years receive moderate or high dose statin therapy. * Patients 75 years or YOUNGER should receive HIGH intensity statin dose unless contraindicated. You will be required to document reason for non-treatment if statin daily dose does not meet guidelines. HIGH DOSE STATIN THERAPY DAILY Atorvastatin > than or = to 40 mg Rosuvastatin > than or = to 20 mg Amlodipine + Atorvastatin > than or = to 2.5/40 mg Ezetimibe + Simvastatin 10/80 mg Simvastatin 80mg Discharge Plan Admission Admit Date/Time: 09/18/24 12:40 Primary Reason for Your Visit: Debility. Attending Provider: Rodrigo Sanches Chi Primary Care Provider: Hernando Grimes Consulting Providers: Sixto Andrade Instructions Additional Instructions / Restrictions: Discharge home 10/08/2024, IV ATB thru 10/25/2024, [facility] PT/SN. Discharge Orders/Prescriptions Prescriptions: Continued losartan 50 MG tablet 50 mg PO BID Patient Comments: BLOOD PRESSURE melatonin 5 MG tablet 10 mg PO QHS Patient Comments: SLEEP pramipexole [Mirapex] 0.5 MG tablet 1 mg PO QHS Patient Comments: RESTLESS LEGS indapamide 1.25 MG tablet 2.5 mg PO DAILY gabapentin 600 MG tablet 600 mg PO QHS bupropion HCl 300 MG tablet extended release 24 hr 150 mg PO DAILY mirtazapine 15 MG tablet 15 mg PO QHS pramipexole 0.5 mg tablet 0.5 mg PO DINNER amlodipine 10 mg tablet 5 mg PO BID duloxetine [Cymbalta] 30 mg capsule,delayed release(DR/EC) 30 mg PO DAILY loperamide 2 mg Capsule 2 mg PO Q2H PRN PRN (Reason: DIARRHEA) Qty: 0 0RF acetaminophen 500 mg Tablet 1,000 mg PO Q8 Qty: 1 0RF famotidine 20 mg Tablet 20 mg PO DAILY Qty: 0 0RF aspirin 81 mg Tablet,Chewable 81 mg PO BID Qty: 0 0RF metoprolol tartrate 25 mg Tablet 25 mg PO BID Qty: 0 0RF sennosides-docusate sodium [Stimulant Laxative Plus] 8.6-50 mg Tablet 1 tab PO DAILY Qty: 0 0RF simethicone [Infants Simethicone] 40 mg/0.6 mL Drops,Suspension 80 mg PO TID PRN (Reason: Gas) Qty: 0 0RF Discontinued oxycodone 5 mg Tablet 5 - 10 mg PO Q4H PRN PRN (Reason: Pain Score 4-10) 2 Days Qty: 10 0RF No Action vancomycin in dextrose 5 % 1 gram/200 mL Piggyback 1,000 mg IV Q24H 39 Days Qty: 3900 0RF Rx Instructions: stop date 10/25/24. Dx: shoulder PJI. weekly bmp, cbc, vanc trough, and esr. Fax to [phone]. Routine picc care per protocol. rifampin 300 mg Capsule 300 mg PO BID 39 Days Qty: 78 0RF Referrals / Follow Up: Hernando Grimes MD [Primary Care Provider] - Fahad Cavanaugh MD [Med Staff - Active Staff] - 10/25/24 10:30 am Disposition Disposition (needs filled in before D/C Order can be placed): Home Health Service 10/01/242002 <Electronically signed by Rodrigo Sanches MD> Cosigner Signature (if applicable): CC: Dr. Hernando Grimes MD; Dr. Rodrigo Sanches MD~ Signed [facility] Work Phone: 1(857) 210-184804-01-2025 Discharge summary [facility] Medical Records Department [address] [place] [address] Discharge Summary 10/01/241955 MR#: [id number] Acct: [id number] Name: OSCAR WOO Rep #:[id number] : 1950 74 From: Rodrigo Sanches MD PCP: Dr. Hernando Grimes MD Status:ADM IN Location: [facility] TCU06-1 Providers Date of Admission: 09/18/24 Primary Care Physician: Dr. Hernando Grimes MD Consultations 09/18/24 20:57 Consult: Infectious Disease Routine Consulting Provider: Sixto Andrade Reason for Consult: Left shoulder periprosthetic infection mssa/mrsa s/p cleanout. 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 Cavanaugh, postoperative course complicated by acute respiratory failure with hypoxia, admitted to TCU with debility, here for rehabilitation, strengthening, intravenous antbiotics, prior to discharge home alone. * Debility - PT/OT. * Pain - Tylenol 1000mg q8, Oxycodone 5-10mg q4h prn. * Bowel - senna/colace 1 tablet daily, Dulcolax 10mg pr daily prn, Magnesium citrate 300mL po x 1 prn, Loperamide 2mg q2h prn. * Adult immunization - Administer pneumonia vaccine, covid vaccine, flu vaccine as appropriate. * DVT prophylaxis - Aspirin 81mg bid thru 09/28/2024. * Hypertension - Metoprolol 25mg bid, Amlodipine 5mg bid, Losartan 50mg bid, Indapamide 2.5mg daily. * Depression - Bupropion XL 150mg daily, Duloxetine 30mg daily, Mirtazapine 15mg qhs, stable chronic residential use, GDR not recommended. * Dry eyes - Artificial tears 2gtt ou q1h prn. * GERD - Famotidine 20mg daily. * Neuropathic pain - Gabapentin 600mg qhs. * Insomnia - Melatonin 10mg qhs. * Skin irritation - Calmoseptine topical bid. * Restless leg syndrome - Mirapex 0.5mg dinner, 1mg qhs. 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 Andrade for expert care. * Gas - Simethicone 80mg tid prn. Medications at Discharge Home Medications losartan 50 mg tablet 50 mg PO BID BP 09/19/14 melatonin 5 mg tablet 10 mg PO QHS INSOMNIA 09/19/14 indapamide 1.25 mg tablet 2.5 mg PO DAILY BP 04/12/17 pramipexole 0.5 mg tablet (Mirapex) 1 mg PO QHS RLS 04/12/17 bupropion HCl 300 mg 24 hr tablet, extended release 150 mg PO DAILY DEPRESSION 06/11/20 gabapentin 600 mg tablet 600 mg PO QHS SLEEP 06/11/20 mirtazapine 15 mg tablet 15 mg PO QHS INSOMNIA 06/24/20 amlodipine 10 mg tablet 5 mg PO BID BP 09/11/24 duloxetine 30 mg capsule,delayed release (Cymbalta) 30 mg PO DAILY DEPRESSION 09/11/24 pramipexole 0.5 mg tablet 0.5 mg PO DINNER RLS 09/11/24 rifampin 300 mg capsule 300 mg PO BID antibiotic 39 days #78 caps 09/16/24 vancomycin 1 gram/200 mL in dextrose 5 % intravenous piggyback 1,000 mg IV Q24H infection 39 days #3,900 mL 09/16/24 acetaminophen 500 mg tablet 1,000 mg (2 x 500 mg) PO Q8 pain #1 TAB 09/17/24 aspirin 81 mg chewable tablet 81 mg PO BID blood thinner #0 tabs 09/17/24 famotidine 20 mg tablet 20 mg PO DAILY reflux #0 tabs 09/17/24 loperamide 2 mg capsule 2 mg PO Q2H PRN PRN DIARRHEA #0 caps 09/17/24 metoprolol tartrate 25 mg tablet 25 mg PO BID pulse/BP #0 tabs 09/17/24 sennosides 8.6 mg-docusate sodium 50 mg tablet (Stimulant Laxative Plus) 1 tab PO DAILY stool softener #0 tabs 09/17/24 simethicone 40 mg/0.6 mL oral drops,suspension (Infants Simethicone) 80 mg (1.2 mL) PO TID PRN Gas #0 mL 09/17/24 Hospital Course Operations - (See below.) Procedures None Summary of Care Provided Minutes Spent on Discharge: 35 Hospital Course: 74 year old female with below past medical history hospitalized for left shoulder periprosthetic joint infection, underwent irrigation debridement complete synovectomy, revision left reverse total shoulder replacement 09/13/2024with Dr. Cavanaugh, postoperative course complicated by acute respiratory failure with hypoxia, admitted to TCU with debility, here for rehabilitation, strengthening, intravenous antibiotics, prior to discharge home alone. Discharge home 10/08/2024, IV ATB thru 10/25/2024, [facility] PT/SN. Physical Exam Const alert General Appearance: cooperative HEENT normocephalic Eyes PERRL and EOMs intact bilaterally Neck supple, no JVD and no carotid bruits Resp normal respiratory effort, normal air movement and clear to auscultation bilaterally Cardio regular rate and regular rhythm GI normal to inspection, nondistended, normoactive bowel sounds, non-tender and non-distended Extremity normal capillary refill Extremity Narrative: RUE PICC line, LUE sling/immobilizer. General Extremity: Negative for edema Skin no rashes or lesions noted General Skin Exam: no breakdown Psych affect normal Appearance: appropriate Weight / BMI Weight Weight: 106.594 kg Body Mass Index (BMI) 36.8 ABG / Lab / Microbiology Data 09/26/24 07:12 09/26/24 07:12 Laboratory: Laboratory Results - last 24 hr 10/01/24 08:20: Vancomycin Trough 13.2 D/C Instructions Discharge Diet: No restrictions Discharge Activity: Return to Normal Activity, May Shower and Use Walker Weight Bearing Status: No weight bearing (Left upper extremity.) Call your doctor if you observe: Fever of 101 or Higher, Inability to urinate, Inability to have a bowel movement, Shortness of breath, Dizziness, Fainting spells, Swelling in the ankles, Chest pain and Uncontrolled pain DC O2, CPAP, BIPAP Needs Home O2 Discharge instructions: No Additional Instructions: Discharge home 10/08/2024, IV ATB thru 10/25/2024, [facility] PT/SN. Please Follow Up With: Fahad Cavanaugh MD When: As scheduled. Meaningful Use Info Meaningful Use Meaningful Use Diagnoses (Choose all that apply): None applicable Ischemic Stroke Statin Dosing Therapy Reference: STATIN DOSE THERAPY REFERENCE: * Patients > 75 years receive moderate or high dose statin therapy. * Patients 75 years or YOUNGER should receive HIGH intensity statin dose unless contraindicated. You will be required to document reason for non-treatment if statin daily dose does not meet guidelines. HIGH DOSE STATIN THERAPY DAILY Atorvastatin > than or = to 40 mg Rosuvastatin > than or = to 20 mg Amlodipine + Atorvastatin > than or = to 2.5/40 mg Ezetimibe + Simvastatin 10/80 mg Simvastatin 80mg Discharge Plan Admission Admit Date/Time: 09/18/24 12:40 Primary Reason for Your Visit: Debility. Attending Provider: Rodrigo Sanches Chi Primary Care Provider: Hernando Grimes Consulting Providers: Sixto Andrade Instructions Additional Instructions / Restrictions: Discharge home 10/08/2024, IV ATB thru 10/25/2024, Miguel [facility] PT/SN. Discharge Orders/Prescriptions Prescriptions: Continued losartan 50 MG tablet 50 mg PO BID Patient Comments: BLOOD PRESSURE melatonin 5 MG tablet 10 mg PO QHS Patient Comments: SLEEP pramipexole [Mirapex] 0.5 MG tablet 1 mg PO QHS Patient Comments: RESTLESS LEGS indapamide 1.25 MG tablet 2.5 mg PO DAILY gabapentin 600 MG tablet 600 mg PO QHS bupropion HCl 300 MG tablet extended release 24 hr 150 mg PO DAILY mirtazapine 15 MG tablet 15 mg PO QHS pramipexole 0.5 mg tablet 0.5 mg PO DINNER amlodipine 10 mg tablet 5 mg PO BID duloxetine [Cymbalta] 30 mg capsule,delayed release(DR/EC) 30 mg PO DAILY loperamide 2 mg Capsule 2 mg PO Q2H PRN PRN (Reason: DIARRHEA) Qty: 0 0RF acetaminophen 500 mg Tablet 1,000 mg PO Q8 Qty: 1 0RF famotidine 20 mg Tablet 20 mg PO DAILY Qty: 0 0RF aspirin 81 mg Tablet,Chewable 81 mg PO BID Qty: 0 0RF metoprolol tartrate 25 mg Tablet 25 mg PO BID Qty: 0 0RF sennosides-docusate sodium [Stimulant Laxative Plus] 8.6-50 mg Tablet 1 tab PO DAILY Qty: 0 0RF simethicone [Infants Simethicone] 40 mg/0.6 mL Drops,Suspension 80 mg PO TID PRN (Reason: Gas) Qty: 0 0RF Discontinued oxycodone 5 mg Tablet 5 - 10 mg PO Q4H PRN PRN (Reason: Pain Score 4-10) 2 Days Qty: 10 0RF No Action vancomycin in dextrose 5 % 1 gram/200 mL Piggyback 1,000 mg IV Q24H 39 Days Qty: 3900 0RF Rx Instructions: stop date 10/25/24. Dx: shoulder PJI. weekly bmp, cbc, vanc trough, and esr. Fax to [phone]. Routine picc care per protocol. rifampin 300 mg Capsule 300 mg PO BID 39 Days Qty: 78 0RF Referrals / Follow Up: Hernando Griems MD [Primary Care Provider] - Fahad Cavanaugh MD [Med Staff - Active Staff] - 10/25/24 10:30 am Disposition Disposition (needs filled in before D/C Order can be placed): Home Health Service 10/01/242002 Cosigner Signature (if applicable): CC: Dr. Hernando Grimes MD; Dr. Rodrigo Sanches MD~ Signed [facility]04-01-2025 [facility] Medical Records Department [address] [place] [id number] Discharge Summary 10/01/241955 MR#: [id number] Acct: [id number] Name: OSCAR WOO Rep #: [id number] : 1950 74 From: Rodrigo Sanches MD PCP: Dr. Hernando Grimes MD Status:ADM IN Location: [facility] TCU06-1 Providers Date of Admission: 09/18/24 Primary Care Physician: Dr. Hernando Grimes MD Consultations 09/18/24 20:57 Consult: Infectious Disease Routine Consulting Provider: Sixto Andrade Reason for Consult: Left shoulder periprosthetic infection mssa/mrsa s/p cleanout. 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 Cavanaugh, postoperative course complicated by acute respiratory failure with hypoxia, admitted to TCU with debility, here for rehabilitation, strengthening, intravenous antbiotics, prior to discharge home alone. * Debility - PT/OT. * Pain - Tylenol 1000mg q8, Oxycodone 5-10mg q4h prn. * Bowel - senna/colace 1 tablet daily, Dulcolax 10mg pr daily prn, Magnesium citrate 300mL po x 1 prn, Loperamide 2mg q2h prn. * Adult immunization - Administer pneumonia vaccine, covid vaccine, flu vaccine as appropriate. * DVT prophylaxis - Aspirin 81mg bid thru 09/28/2024. * Hypertension - Metoprolol 25mg bid, Amlodipine 5mg bid, Losartan 50mg bid, Indapamide 2.5mg daily. 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 * Dry eyes - Artificial tears 2gtt ou q1h prn. * GERD - Famotidine 20mg daily. * Neuropathic pain - Gabapentin 600mg qhs. * Insomnia - Melatonin 10mg qhs. * Skin irritation - Calmoseptine topical bid. * Restless leg syndrome - Mirapex 0.5mg dinner, 1mg qhs. 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 Andrade for expert care. * Gas - Simethicone 80mg tid prn. Medications at Discharge Home Medications losartan 50 mg tablet 50 mg PO BID BP 09/19/14 melatonin 5 mg tablet 10 mg PO QHS INSOMNIA 09/19/14 indapamide 1.25 mg tablet 2.5 mg PO DAILY BP 04/12/17 pramipexole 0.5 mg tablet (Mirapex) 1 mg PO QHS RLS 04/12/17 bupropion HCl 300 mg 24 hr tablet, extended release 150 mg PO DAILY DEPRESSION 06/11/20 gabapentin 600 mg tablet 600 mg PO QHS SLEEP 06/11/20 mirtazapine 15 mg tablet 15 mg PO QHS INSOMNIA 06/24/20 amlodipine 10 mg tablet 5 mg PO BID BP 09/11/24 duloxetine 30 mg capsule,delayed release (Cymbalta) 30 mg PO DAILY DEPRESSION 09/11/24 pramipexole 0.5 mg tablet 0.5 mg PO DINNER RLS 09/11/24 rifampin 300 mg capsule 300 mg PO BID antibiotic 39 days #78 caps 09/16/24 vancomycin 1 gram/200 mL in dextrose 5 % intravenous piggyback 1,000 mg IV Q24H infection 39 days #3,900 mL 09/16/24 acetaminophen 500 mg tablet 1,000 mg (2 x 500 mg) PO Q8 pain #1 TAB 09/17/24 aspirin 81 mg chewable tablet 81 mg PO BID blood thinner #0 tabs 09/17/24 famotidine 20 mg tablet 20 mg PO DAILY reflux #0 tabs 09/17/24 loperamide 2 mg capsule 2 mg PO Q2H PRN PRN DIARRHEA #0 caps 09/17/24 metoprolol tartrate 25 mg tablet 25 mg PO BID pulse/BP #0 tabs 09/17/24 sennosides 8.6 mg-docusate sodium 50 mg tablet (Stimulant Laxative Plus) 1 tab PO DAILY stool softener #0 tabs 09/17/24 simethicone 40 mg/0.6 mL oral drops,suspension (Infants Simethicone) 80 mg (1.2 mL) PO TID PRN Gas #0 mL 09/17/24 Hospital Course Operations - (See below.) Procedures None Summary of Care Provided Minutes Spent on Discharge: 35 Hospital Course: 74 year old female with below past medical history hospitalized for left shoulder periprosthetic joint infection, underwent irrigation debridement complete synovectomy, revision left reverse total shoulder replacement 09/13/[address] Cavanaugh, postoperative course complicated by acute respiratory failure with hypoxia, admitted to TCU with debility, here for rehabilitation, strengthening, intravenous antibiotics, prior to discharge home alone. Discharge home 10/08/2024, IV ATB thru 10/25/2024, [facility] PT/SN. Physical Exam Const alert General Appearance: cooperative HEENT normocephalic Eyes PERRL and EOMs intact bilaterally Neck supple, no JVD and no carotid bruits Resp n (more content not included)...[facility]03-28-2025 Consult note Author Tino Law [facility] Note Date/Time September 27, 2024 9:2 0am [facility] Medical Records Department [address] [place] [address] Pharmacokinetic/Renal -Consult 09/24/24 0947 MR#: [id number] Acct: [id number] Name: OSCAR WOO Rep #:[id number] : 1950 74 From: Tino Law PCP: Dr. Hernando Grimes MD Status:ADM IN Y Location: [place] [address] Consult Antibiotic Management Pharmacy has been consulted to manage selected antibiotic: Vancomycin Type of Intervention Type of Consult: Follow-up Suspected Infection Suspected Infection: Skin/Soft tissue Prior Doses of Antibiotics Prior Doses of Antibiotics Received/Current Regimen: Vancomycin 1250 mg Q24H last dose given 09/23 @ 0909 Labs Labs: Sodium 138 mmol/L (133-145) 09/21/24 06:20 Potassium 4.6 mmol/L (3.3-5.1) 09/21/24 06:20 Chloride 99 mmol/L (98-108) 09/21/24 06:20 Carbon Dioxide 27.1 mmol/L (21.0-32.0) 09/21/24 06:20 Anion Gap 12 (5-15) 09/21/24 06:20 BUN 25 mg/dL (4-19) H 09/21/24 06:20 Creatinine 1.19 mg/dL (0.70-1.20) 09/21/24 06:20 Est GFR (MDRD) Non-Af 48 (>60) L 09/21/24 06:20 BUN/Creatinine Ratio 21.1 RATIO (10-20) H 09/21/24 06:20 Glucose 99 mg/dL (70-99) 09/21/24 06:20 Vancomycin Trough 13.3 ug/mL (5.0-15.0) 09/24/24 08:24 Dosing Weight Weight used for dosin kg Estimated Creatinine Clearance Estimated Creatinine Clearance: ~ 52 Goal Trough Goal Trough: 10-15 mcg/mL Pharmacy Plan for Drug Dosing Pharmacy Plan for Drug Dosing: Vancomycin trough = 13.3, continue current dosing, trough in 5 days Pharmacy Service will continue to monitor and adjust dosing as required. Follow-Up Labs Follow-Up Labs: Trough: Vancomycin Date/Time Labs Ordered Labs to be done on [date and time ordered]: 09/29/24 @ 0830 09/24/24 0948 <Electronically signed by Tino calhoun> Date _ Tino Law 09/27/24 09 <Electronically signed by Sixto montoya MD> Cosigner Signature (if applicable): Date Sixto Andrade MD CC: ~ Signed [facility] Work Phone: 1(379) 599-813003-28-2025 Consult note [facility] Medical Records Department [address] [place] [address] Pharmacokinetic/Renal -Consult 09/24/24 0947 MR#: [id number] Acct: [id number] Name: OSCAR WOO Rep #:[id number] : 1950 74 From: Tino Law PCP: Dr. Hernando Grimes MD Status:ADM IN [facility] [place] [place] Antibiotic Management Pharmacy has been consulted to manage selected antibiotic: Vancomycin Type of Intervention Type of Consult: Follow-up Suspected Infection Suspected Infection: Skin/Soft tissue Prior Doses of Antibiotics Prior Doses of Antibiotics Received/Current Regimen: Vancomycin 1250 mg Q24H last dose given 09/23 @ 0909 Labs Labs: Sodium 138 mmol/L (133-145) 09/21/24 06:20 Potassium 4.6 mmol/L (3.3-5.1) 09/21/24 06:20 Chloride 99 mmol/L (98-108) 09/21/24 06:20 Carbon Dioxide 27.1 mmol/L (21.0-32.0) 09/21/24 06:20 Anion Gap 12 (5-15) 09/21/24 06:20 BUN 25 mg/dL (4-19) H 09/21/24 06:20 Creatinine 1.19 mg/dL (0.70-1.20) 09/21/24 06:20 Est GFR (MDRD) Non-Af 48 (>60) L 09/21/24 06:20 BUN/Creatinine Ratio 21.1 RATIO (10-20) H 09/21/24 06:20 Glucose 99 mg/dL (70-99) 09/21/24 06:20 Vancomycin Trough 13.3 ug/mL (5.0-15.0) 09/24/24 08:24 Dosing Weight Weight used for dosin kg Estimated Creatinine Clearance Estimated Creatinine Clearance: ~ 52 Goal Trough Goal Trough: 10-15 mcg/mL Pharmacy Plan for Drug Dosing Pharmacy Plan for Drug Dosing: Vancomycin trough = 13.3, continue current dosing, trough in 5 days Pharmacy Service will continue to monitor and adjust dosing as required. Follow-Up Labs Follow-Up Labs: Trough: Vancomycin Date/Time Labs Ordered Labs to be done on [date and time ordered]: 09/29/24 @ 0830 09/24/24 0948 r> Date _ Tino Law 09/27/24 0920 jan COTTER> Yanick Signature (if applicable): Date Sixto Andrade MD CC: ~ Signed [facility]03-23-2025 Consult note Author Shabnam Zarate [facility] Note Date/Time September 22, 2024 11: 33am [facility] Medical Records Department [address] [place] [address] Pharmacokinetic/Renal -Consult 09/22/24 1047 MR#: [id number] Acct: [id number] Name: OSCAR WOO Rep #:[id number] : 1950 74 From: Shabnam Zarate PCP: Dr. Hernando Grmies MD Status:ADM IN Location: [place] [address] Consult Antibiotic Management Pharmacy has been consulted to manage selected antibiotic: Vancomycin Type of Intervention Type of Consult: Follow-up Labs Labs: Sodium 138 mmol/L (133-145) 09/21/24 06:20 Potassium 4.6 mmol/L (3.3-5.1) 09/21/24 06:20 Chloride 99 mmol/L (98-108) 09/21/24 06:20 Carbon Dioxide 27.1 mmol/L (21.0-32.0) 09/21/24 06:20 Anion Gap 12 (5-15) 09/21/24 06:20 BUN 25 mg/dL (4-19) H 09/21/24 06:20 Creatinine 1.19 mg/dL (0.70-1.20) 09/21/24 06:20 Est GFR (MDRD) Non-Af 48 (>60) L 09/21/24 06:20 BUN/Creatinine Ratio 21.1 RATIO (10-20) H 09/21/24 06:20 Glucose 99 mg/dL (70-99) 09/21/24 06:20 Vancomycin Trough 12.4 ug/mL (5.0-15.0) 09/22/24 08:40 Pharmacy Plan for Drug Dosing Pharmacy Plan for Drug Dosing: VANCOMYCIN LEVEL RECEIVED Current Vancomycin Dose: 1250mg IV Q24h Number of Doses Received: 2 (of current regimen) Vancomycin Level: 12.4 Hours Since Last Dose: 10.5hr Renal Function: SCr 1.19 on 09/21 Renal Function Trend: stable Lab/Micro: no new data Vancomycin Plan/Comments: Patient had a trough drawn which resulted in a value of 12.4 (goal 10-15). The patient's trough is within therapeutic range. Will continue current dosing of 1250mg IV Q24h and recheck a trough in 2 days to assess dosing at that time. Pending Level: 09/24/24 @0830 Pharmacy Service will continue to monitor and adjust dosing as required. 09/22/24 1047 <Electronically signed by Shabnam Zarate > Date _ Shabnam Zarate 09/22/24 1133 <Electronically signed by Rodrigo Chi> Cosigner Signature (if applicable): Date Rodrigo Sanches MD CC: ~ Signed [facility] Work Phone: [phone]) 413-630403-23-2025 Consult note [facility] Medical Records Department [address] [place] [address] Pharmacokinetic/Renal -Consult 09/22/24 1047 MR#: [id number] Acct: [id number] Name: OSCAR WOO Rep #:[id number] : 1950 74 From: Shabnam Zarate PCP: Dr. Hernando Grimes MD Status:ADM IN Location: [place] [address] Consult Antibiotic Management Pharmacy has been consulted to manage selected antibiotic: Vancomycin Type of Intervention Type of Consult: Follow-up Labs Labs: Sodium 138 mmol/L (133-145) 09/21/24 06:20 Potassium 4.6 mmol/L (3.3-5.1) 09/21/24 06:20 Chloride 99 mmol/L (98-108) 09/21/24 06:20 Carbon Dioxide 27.1 mmol/L (21.0-32.0) 09/21/24 06:20 Anion Gap 12 (5-15) 09/21/24 06:20 BUN 25 mg/dL (4-19) H 09/21/24 06:20 Creatinine 1.19 mg/dL (0.70-1.20) 09/21/24 06:20 Est GFR (MDRD) Non-Af 48 (>60) L 09/21/24 06:20 BUN/Creatinine Ratio 21.1 RATIO (10-20) H 09/21/24 06:20 Glucose 99 mg/dL (70-99) 09/21/24 06:20 Vancomycin Trough 12.4 ug/mL (5.0-15.0) 09/22/24 08:40 Pharmacy Plan for Drug Dosing Pharmacy Plan for Drug Dosing: VANCOMYCIN LEVEL RECEIVED Current Vancomycin Dose: 1250mg IV Q24h Number of Doses Received: 2 (of current regimen) Vancomycin Level: 12.4 Hours Since Last Dose: 10.5hr Renal Function: SCr 1.19 on 09/21 Renal Function Trend: stable Lab/Micro: no new data Vancomycin Plan/Comments: Patient had a trough drawn which resulted in a value of 12.4 (goal 10-15). The patient's trough is within therapeutic range. Will continue current dosing of 1250mg IV Q24h and recheck a trough in 2 days to assess dosing at that time. Pending Level: 09/24/24 @0830 Pharmacy Service will continue to monitor and adjust dosing as required. 09/22/24 1047 > Date _ Shabnam Zarate 09/22/24 1133 D> Cosigner Signature (if applicable): Date Rodrigo Sanches MD CC: ~ Signed [facility]03-21-2025 Progress note Author Shabnam Zarate [facility] Note Date/Time September 20, 2024 1:4 3pm [facility] Medical Records Department [address] [place] [address] Progress Note - Pharmacy 09/19/24 1427 MR#: [id number] Acct: [id number] Name: OSCAR WOO Rep #:[id number] : 1950 74 From: Shabnam Zarate PCP: Dr. Hernando Grimes MD Status:ADM IN Location: [place] [address] TCU RX Drug Regimen Review Subjective/Objective Subjective/Objective Subjective: 74 YOF admitted to TCU on 09/18/24 s/p hospitalization to [facility] for a left shoulder joint infection. The patient had surgical intervention to washout the infected joint while admitted. Admitted to TCU for IV antibiotics, strengthening and rehabilitation prior to discharge home where she currently resides alone. Objective: Allergies Penicillins Allergy (Verified 09/13/24 12:05) Anaphylaxis Current Medications Generic Name Dose Route Start Last Admin Trade Name Freq PRN Reason Stop Dose Admin Acetaminophen 1,000 mg 09/18/24 14:00 09/19/24 13:21 Acetaminophen 500 Mg Tablet PO 1,000 mg Q8 KACEY Administration Amlodipine Besylate 5 mg 09/18/24 22:00 09/19/24 07:51 Amlodipine 5 Mg Tablet PO 5 mg BID KACEY Administration Protocol Artificial Tears 2 drp 09/18/24 13:40 Carboxymethylcellulose Sodium 15 Ml Ophth Drops EACH EYE Q1H PRN DRY EYES Aspirin 81 mg 09/18/24 17:00 09/19/24 07:50 Aspirin 81 Mg Tab.Chew PO 09/28/24 23:59 81 mg BIDCM KACEY Administration Bisacodyl 10 mg 09/18/24 13:23 Bisacodyl 10 Mg Suppository RC DAILY PRN PRN Constipation Bupropion HCl 150 mg 09/19/24 10:00 09/19/24 07:51 Bupropion (Xl) 150 Mg Tablet.Xl PO 150 mg DAILY KACEY Administration Calamine/Phenol 1 applic 09/18/24 22:00 09/19/24 09:15 Menthol/Lanolin/Calamine/Znox 113 Gm Tube TOPICAL 1 applic BID KACEY Administration Protocol Duloxetine HCl 30 mg 09/19/24 10:00 09/19/24 07:50 Duloxetine Hcl 30 Mg Capsule PO 30 mg DAILY KACEY Administration Famotidine 20 mg 09/19/24 10:00 09/19/24 07:51 Famotidine 20 Mg Tablet PO 20 mg DAILY KACEY Administration Gabapentin 600 mg 09/18/24 22:00 09/18/24 21:59 Gabapentin 600 Mg Tablet PO 600 mg QHS KACEY Administration Vancomycin IV-PHARMACY TO DOSE 500 mls @ 250 mls/hr 09/18/24 13:50 1 each/ Sodium Chloride IV 10/25/24 08:01 X1 PRN Rx to Dose Protocol Vancomycin HCl 1,000 mg in 200 mls @ 200 mls/hr 09/19/24 08:00 09/19/24 10:42 Vancomycin IV 10/25/24 08:01 Infused Q24H KACEY Infusion Sodium Chloride 100 mls @ 15 mls/hr 09/19/24 07:56 09/19/24 09:14 IV 15 mls/hr .Q6H40M PRN Administration Saline Flush Sodium Chloride 100 mls @ 15 mls/hr 09/19/24 07:56 IV .Q6H40M PRN Additional IVPB Infusion Indapamide 2.5 mg 09/19/24 10:00 09/19/24 07:51 Indapamide 2.5 Mg Tablet PO 2.5 mg DAILY KACEY Administration Loperamide HCl 2 mg 09/18/24 13:16 Loperamide 2 Mg Capsule PO Q2H PRN PRN DIARRHEA/LOOSE STOOLS Losartan Potassium 50 mg 09/18/24 22:00 09/19/24 07:50 Losartan Potassium 50 Mg Tablet PO 50 mg BID KACEY Administration Protocol Magnesium Citrate 300 ml 09/18/24 13:23 Magnesium Citrate 300 Ml PO X1 PRN Constipation Melatonin 10 mg 09/18/24 22:00 09/18/24 22:06 Melatonin 10 Mg Tablet PO 10 mg QHS KACEY Administration Metoprolol Tartrate 25 mg 09/18/24 22:00 09/19/24 07:50 Metoprolol Tartrate 25 Mg Tablet PO 25 mg BID KACEY Administration Protocol Mirtazapine 15 mg 09/18/24 22:00 09/18/24 22:00 Mirtazapine 15 Mg Tablet PO 15 mg QHS KACEY Administration Oxycodone HCl 5 - 10 mg 09/18/24 13:16 09/19/24 07:49 Oxycodone 5 Mg Tablet PO 10 mg Q4H PRN PRN Administration Pain Score 4-10 Pramipexole Dihydrochloride 1 mg 09/18/24 22:00 09/18/24 22:00 Pramipexole Di-Hcl 1 Mg Tablet PO 1 mg QHS KACEY Administration Pramipexole Dihydrochloride 0.5 mg 09/18/24 17:00 09/18/24 16:52 Pramipexole Di-Hcl 0.5 Mg Tablet PO 0.5 mg DINNER KACEY Administration Rifampin 300 mg 09/18/24 22:00 09/19/24 07:51 Rifampin 300 Mg Capsule PO 300 mg BID KACEY Administration Senna/Docusate Sodium 1 tablet 09/19/24 10:00 09/19/24 07:51 Senna/Docusate Sodium 1 Tablet PO 1 tablet DAILY KACEY Administration Simethicone 80 mg 09/18/24 13:16 09/18/24 16:51 Simethicone 40mg/0.6ml Bottle PO 80 mg TID PRN Administration Gas Sodium Chloride 10 - 40 ml 09/18/24 15:39 09/19/24 09:20 0.9% Saline Lock 10 Ml Syringe IV 20 ml UD PRN Administration Open End PICC Flush Sodium Chloride 10 - 40 ml 09/19/24 07:56 0.9% Saline Lock 10 Ml Syringe IV UD PRN Open End PICC Flush Sodium Chloride 10 - 40 ml 09/19/24 07:56 0.9 % Nacl (Sterile) Posiflush 10 Ml IV UD PRN Port access or dressing change Tuberculin PPD 0.1 ml 09/26/24 10:00 Tuberculin,Purif.Prot.Deriv. 50 Tu/Ml Vial ID 09/26/24 10:01 X1 ONE Vancomycin Protocol 1 lab 09/20/24 05:30 Vancomycin Trough/Random Due 09/20/24 09:30 DAILY KACEY Problem List Infection of prosthetic shoulder joint (Acute) Essential (primary) hypertension (Acute) Acute respiratory failure with hypoxia (Acute) Debility (Acute) Infection and inflammatory reaction due to other internal joint prosthesis, initial encounter (Acute) Insomnia (Acute) Restless legs (Acute) Neuropathy (Acute) Depression (Acute) Vital Signs Temp Pulse Resp BP Pulse Ox O2 Del Method 97.3 F L 89 16 141/88 H 95 Room Air 09/19/24 07:48 09/19/24 13:33 09/19/24 13:33 09/19/24 07:48 09/19/24 13:33 09/19/24 13:33 Oxygen Delivery Method Room Air Weight: 107.275 kg Body Mass Index (BMI) 37.0 Sodium 142 mmol/L (133-145) 09/19/24 07:06 Potassium 4.6 mmol/L (3.3-5.1) 09/19/24 07:06 Chloride 97 mmol/L (98-108) L 09/19/24 07:06 Carbon Dioxide 30.4 mmol/L (21.0-32.0) 09/19/24 07:06 Anion Gap 14 (5-15) 09/19/24 07:06 BUN 20 mg/dL (4-19) H 09/19/24 07:06 Creatinine 1.07 mg/dL (0.70-1.20) 09/19/24 07:06 Est GFR (MDRD) Non-Af 54 (>60) L 09/19/24 07:06 BUN/Creatinine Ratio 18.6 RATIO (10-20) 09/19/24 07:06 Glucose 101 mg/dL (70-99) H 09/19/24 07:06 Assessment/Plan: 1. Pain: Tylenol 1000mg PO Q8h, Oxycodone 5-10mg PO Q4h PRN Pain 4-10. Please continue to monitor for increased/decreased s/s pain, PRN medication usage, nausea/constipation/oversedation with narcotic use. -To date, the patient has used 2 doses of PRN oxycodone 910mg) for shoulder pain rated 7/10. 2. Shoulder Joint Infection requiring surgical wash/clean out: Vancomycin 1g IV Q24hr thru 10/25/24 (being managed by pharmacy services), rifampin 300mg PO BID. Please continue to monitor vancomycin troughs as clinically indicated (last trough 10.7 on 09/18), renal function (CrCl 57mL/min), infusion reactions, angioedema, liver function ( last done 04/2024, WNL). No new culture data at this time, therapy is appropriate based on previous cultures. ID is also following patient while admitted. 3. Post-OP DVT Prophylaxis: Aspirin 81mg PO BID thru 09/28/24. Please continue tomonitor for S/S bleeding/bruising, H/H (hgb 12.3/ hct 38.9 on 09/19), s/s clot formation. 4. HTN: Norvasc 5mg PO BID, Indapamide 2.5mg PO Daily, Losartan 50mg PO BID, Lopressor 25mg PO BID. Please continue to monitor BP (last 141/88), pulse (last 89 BPM), lower extremity swelling. 5. GERD: Pepcid 20mg PO Daily. Please continue to monitor renal function (CrCl 57mL/min). Please also encourage non-pharmacologic treatments to help minimize GERD flare-ups. 6. RLS: Pramipexole 0.5mg PO Dinner and 1mg PO QHS. Please continue to monitor for abnormal dreams, dizziness, confusion, constipation, dyskinesia, drowsiness. 7. Neuropathic Pain: Gabapentin 600mg PO QHS. Please continue to monitor for oversedation, renal function (CrCl 57mL/min). This is a BEER's criteria medication which can increase the risk of falls/fractures in patients >65 years of age. Please evaluate the risk vs. benefit of prolonged use if clinically indicated. 8. Dry Eyes: Refresh artificial tears 2 gtt OU Q1h PRN. 9. Insomnia: Melatonin 10mg PO QHS. Please continue to monitor for oversedation,drowsiness, medication effectiveness. If medication appears ineffective, try administering at least 2hrs prior to desired bedtime to allow for maximum effectiveness. 10. Skin Integrity: Calmoseptine topically BID. Please continue to monitor for skin redness, irritation, ulcer/wound formations. 11. Bowel/ Gas: Senna/Docusate 1 tab PO daily, Dulcolax 10mg PO Daily PRN, magnesium Citrate 300mL PO x1 PRN, Simethicone 80mg PO TID PRN, Loperamide 2mg PO Q2h PRN. Please continue to monitor for increased/decreased constipation and/or diarrhea, abdominal pain/bloating, gas buildup. - The patient's last documented BM was on 09/18/24. Please continue to monitorfor a regular bowel schedule Assessment/Plan for indications treated with psychotropic medications: 1. Depression: Bupropion XL 150mg PO Daily, Cymbalta 30mg PO daily, Remeron 15mgPO QHS. Please consider a GDR by 03/2025 if clinically indicated, thank you. Remeron and Cymbalta are both BEER's Criteria medications which can cause hyponatremia and reduce falls/fractures in patients >65 years of age. Please evaluate risk v. benefite of using for a prolonged period of time. Medical chart and medication regimen reviewed. The following medication irregularities or issues were identified: 1. Please consider obtaining LFTs since patient will be on rifampin for an extended period of time if clinically indicated, thank you. 2. Depression: Bupropion XL 150mg PO Daily, Cymbalta 30mg PO daily, Remeron 15mgPO QHS. Please consider a GDR by 03/2025 if clinically indicated, thank you. Date Date of Note: 09/19/24 09/19/24 1504 <Electronically signed by Shabnam Zarate> Shabnam Herndon Signature (if applicable): CC: ~ Signed ADDENDUM by Shabnam Zarate on 09/20/24 at 1051 Addendum ADDING COSIGNER 09/20/24 1051 <Electronically signed by Shabnam Zarate > Date _ Shabnam Zarate 09/20/24 1342 <Electronically signed by Rodrigo Chi> Yanick Signature (if applicable): Date cc: ~* Signed ADDENDUM by Dr. Rodrigo Sanches MD on 09/20/24 at 1342 Addendum Agree with recommendations. 09/20/24 1342 <Electronically signed by Rodrigo Chi> Date _ Rodrigo Sanches MD Signature (if applicable): Date cc: ~* Signed [facility] Work Phone: 1(948) 502-416403-21-2025 Progress note Author Sixto Andrade [facility] Note Date/Time September 20, 2024 1:3 8pm [facility] Medical Records Department [address] [place] [address] Progress Note - Infect Disease 09/20/24 1336 MR#: [id number] Acct: [id number] Name: OSCAR WOO Rep #:[id number] : 1950 74 From: Sixto calhoun MD PCP: Dr. Hernando Grimes MD Status:ADM IN Location: [facility]01 Physical Exam Narrative Feeling better, shoulder improving, no fever, no n/v/d, no issues with picc Const alert and no apparent distress General Appearance: cooperative Resp normal air movement and clear to auscultation bilaterally Cardio regular rate and regular rhythm GI soft to palpation, non-tender and non-distended Skin no rashes or lesions noted ID ID: Route of nutrition/ use of supplements: [] Nutritional Intake: [] IV Site: [] Day Catheter: [] Assessment & Plan Assessment/Plan (1) Infection of prosthetic shoulder joint: PLAN: Aspiration cx with MRSA. Taken to OR 09/13/[address] Cavanaugh for revision; surg cx x2 with MSSA. Picc in place. Plan is for iv vanc and po rifampin for 6 weeks with stop date 10/25/24 with weekly bmp, cbc, LFT, and ESR. After that, will need long course suppressive po abx. Will follow 09/20/24 1338 <Electronically signed by Sixto Andrade MD> Cosigner Signature (if applicable): CC: ~ Signed [facility] Work Phone: 1(803) 512-859503-21-2025 Consult note Author Jonh Khalil [facility] Note Date/Time September 20, 2024 1:2 6pm [facility] Medical Records Department [address] [place] [address] Pharmacokinetic/Renal -Consult 09/20/24 0902 MR#: [id number] Acct: [id number] Name: OSCAR WOO Rep #:[id number] : 1950 74 From: Jonh kurtz PCP: Dr. Hernando Grimes MD Status:ADM IN Y Location: [facility] Consult Antibiotic Management Pharmacy has been consulted to manage selected antibiotic: Vancomycin Type of Intervention Type of Consult: Follow-up Prior Doses of Antibiotics Prior Doses of Antibiotics Received/Current Regimen: current dose is 1000mg IV q24h Labs Labs: Sodium 142 mmol/L (133-145) 09/19/24 07:06 Potassium 4.6 mmol/L (3.3-5.1) 09/19/24 07:06 Chloride 97 mmol/L (98-108) L 09/19/24 07:06 Carbon Dioxide 30.4 mmol/L (21.0-32.0) 09/19/24 07:06 Anion Gap 14 (5-15) 09/19/24 07:06 BUN 20 mg/dL (4-19) H 09/19/24 07:06 Creatinine 1.07 mg/dL (0.70-1.20) 09/19/24 07:06 Est GFR (MDRD) Non-Af 54 (>60) L 09/19/24 07:06 BUN/Creatinine Ratio 18.6 RATIO (10-20) 09/19/24 07:06 Glucose 101 mg/dL (70-99) H 09/19/24 07:06 Vancomycin Trough 9.9 ug/mL (5.0-15.0) 09/20/24 07:35 Dosing Weight Weight used for dosin kg Estimated Creatinine Clearance Estimated Creatinine Clearance: 57ml/min Goal Trough Goal Trough: 10-15 mcg/mL Pharmacy Plan for Drug Dosing Pharmacy Plan for Drug Dosing: The vanc trough drawn at 07:35 today (drawn approx 22 hours after the most recent dose) was 9.9 mcg/ml. This is below goal and has dropped from the last trough result of 10.7 so will increase dose to 1250mg IV q24h. Will check another trough before the 3rd dose. Pharmacy Service will continue to monitor and adjust dosing as required. Follow-Up Labs Follow-Up Labs: Trough: Vancomycin Date/Time Labs Ordered Labs to be done on [date and time ordered]: 09/22/24 08:30 09/20/24 0905 <Electronically signed by Jonh Cook erg> Date _ Jonh Khalil 09/20/24 1326 <Electronically signed by Rodrigo Chi> Cosigner Signature (if applicable): Date Rodrigo Sanches MD CC: ~ Signed [facility] Work Phone: [phone]) 408-766503-21-2025 Progress note [facility] Medical Records Department [address] [place] [address] Progress Note - Pharmacy 09/19/24 1427 MR#: [id number] Acct: [id number] Name: OSCAR WOO Rep #:[id number] : 1950 74 From: Shabnam Zarate PCP: Dr. Hernando Grimes MD Status:ADM IN Location: TCU [place] [address] TCU RX Drug Regimen Review Subjective/Objective Subjective/Objective Subjective: 74 YOF admitted to TCU on 09/18/24 s/p hospitalization to [facility] for a left shoulder joint infection. The patient had surgical intervention to washout the infected joint while admitted. Admitted to TCU for IV antibiotics, strengthening and rehabilitation prior to discharge home where she currently resides alone. Objective: Allergies Penicillins Allergy (Verified 09/13/24 12:05) Anaphylaxis Current Medications Generic Name Dose Route Start Last Admin Trade Name Freq PRN Reason Stop Dose Admin Acetaminophen 1,000 mg 09/18/24 14:00 09/19/24 13:21 Acetaminophen 500 Mg Tablet PO 1,000 mg Q8 KACEY Administration Amlodipine Besylate 5 mg 09/18/24 22:00 09/19/24 07:51 Amlodipine 5 Mg Tablet PO 5 mg BID KACEY Administration Protocol Artificial Tears 2 drp 09/18/24 13:40 Carboxymethylcellulose Sodium 15 Ml Ophth Drops EACH EYE Q1H PRN DRY EYES Aspirin 81 mg 09/18/24 17:00 09/19/24 07:50 Aspirin 81 Mg Tab.Chew PO 09/28/24 23:59 81 mg BIDCM KACEY Administration Bisacodyl 10 mg 09/18/24 13:23 Bisacodyl 10 Mg Suppository RC DAILY PRN PRN Constipation Bupropion HCl 150 mg 09/19/24 10:00 09/19/24 07:51 Bupropion (Xl) 150 Mg Tablet.Xl PO 150 mg DAILY KACEY Administration Calamine/Phenol 1 applic 09/18/24 22:00 09/19/24 09:15 Menthol/Lanolin/Calamine/Znox 113 Gm Tube TOPICAL 1 applic BID KACEY Administration Protocol Duloxetine HCl 30 mg 09/19/24 10:00 09/19/24 07:50 Duloxetine Hcl 30 Mg Capsule PO 30 mg DAILY KACEY Administration Famotidine 20 mg 09/19/24 10:00 09/19/24 07:51 Famotidine 20 Mg Tablet PO 20 mg DAILY KACEY Administration Gabapentin 600 mg 09/18/24 22:00 09/18/24 21:59 Gabapentin 600 Mg Tablet PO 600 mg QHS KACEY Administration Vancomycin IV-PHARMACY TO DOSE 500 mls @ 250 mls/hr 09/18/24 13:50 1 each/ Sodium Chloride IV 10/25/24 08:01 X1 PRN Rx to Dose Protocol Vancomycin HCl 1,000 mg in 200 mls @ 200 mls/hr 09/19/24 08:00 09/19/24 10:42 Vancomycin IV 10/25/24 08:01 Infused Q24H KACEY Infusion Sodium Chloride 100 mls @ 15 mls/hr 09/19/24 07:56 09/19/24 09:14 IV 15 mls/hr .Q6H40M PRN Administration Saline Flush Sodium Chloride 100 mls @ 15 mls/hr 09/19/24 07:56 IV .Q6H40M PRN Additional IVPB Infusion Indapamide 2.5 mg 09/19/24 10:00 09/19/24 07:51 Indapamide 2.5 Mg Tablet PO 2.5 mg DAILY KACEY Administration Loperamide HCl 2 mg 09/18/24 13:16 Loperamide 2 Mg Capsule PO Q2H PRN PRN DIARRHEA/LOOSE STOOLS Losartan Potassium 50 mg 09/18/24 22:00 09/19/24 07:50 Losartan Potassium 50 Mg Tablet PO 50 mg BID KACEY Administration Protocol Magnesium Citrate 300 ml 09/18/24 13:23 Magnesium Citrate 300 Ml PO X1 PRN Constipation Melatonin 10 mg 09/18/24 22:00 09/18/24 22:06 Melatonin 10 Mg Tablet PO 10 mg QHS KACEY Administration Metoprolol Tartrate 25 mg 09/18/24 22:00 09/19/24 07:50 Metoprolol Tartrate 25 Mg Tablet PO 25 mg BID KACEY Administration Protocol Mirtazapine 15 mg 09/18/24 22:00 09/18/24 22:00 Mirtazapine 15 Mg Tablet PO 15 mg QHS KACEY Administration Oxycodone HCl 5 - 10 mg 09/18/24 13:16 09/19/24 07:49 Oxycodone 5 Mg Tablet PO 10 mg Q4H PRN PRN Administration Pain Score 4-10 Pramipexole Dihydrochloride 1 mg 09/18/24 22:00 09/18/24 22:00 Pramipexole Di-Hcl 1 Mg Tablet PO 1 mg QHS KACEY Administration Pramipexole Dihydrochloride 0.5 mg 09/18/24 17:00 09/18/24 16:52 Pramipexole Di-Hcl 0.5 Mg Tablet PO 0.5 mg DINNER KACEY Administration Rifampin 300 mg 09/18/24 22:00 09/19/24 07:51 Rifampin 300 Mg Capsule PO 300 mg BID KACEY Administration Senna/Docusate Sodium 1 tablet 09/19/24 10:00 09/19/24 07:51 Senna/Docusate Sodium 1 Tablet PO 1 tablet DAILY KACEY Administration Simethicone 80 mg 09/18/24 13:16 09/18/24 16:51 Simethicone 40mg/0.6ml Bottle PO 80 mg TID PRN Administration Gas Sodium Chloride 10 - 40 ml 09/18/24 15:39 09/19/24 09:20 0.9% Saline Lock 10 Ml Syringe IV 20 ml UD PRN Administration Open End PICC Flush Sodium Chloride 10 - 40 ml 09/19/24 07:56 0.9% Saline Lock 10 Ml Syringe IV UD PRN Open End PICC Flush Sodium Chloride 10 - 40 ml 09/19/24 07:56 0.9 % Nacl (Sterile) Posiflush 10 Ml IV UD PRN Port access or dressing change Tuberculin PPD 0.1 ml 09/26/24 10:00 Tuberculin,Purif.Prot.Deriv. 50 Tu/Ml Vial ID 09/26/24 10:01 X1 ONE Vancomycin Protocol 1 lab 09/20/24 05:30 Vancomycin Trough/Random Due [facility] 09/20/24 09:30 DAILY [facility] Problem List Infection of prosthetic shoulder joint (Acute) Essential (primary) hypertension (Acute) Acute respiratory failure with hypoxia (Acute) Debility (Acute) Infection and inflammatory reaction due to other internal joint prosthesis, initial encounter (Acute) Insomnia (Acute) Restless legs (Acute) Neuropathy (Acute) Depression (Acute) Vital Signs Temp Pulse Resp BP Pulse Ox O2 Del Method 97.3 F L 89 16 141/88 H 95 Room Air 09/19/24 07:48 09/19/24 13:33 09/19/24 13:33 09/19/24 07:48 09/19/24 13:33 09/19/24 13:33 Oxygen Delivery Method Room Air Weight: 107.275 kg Body Mass Index (BMI) 37.0 Sodium 142 mmol/L (133-145) 09/19/24 07:06 Potassium 4.6 mmol/L (3.3-5.1) 09/19/24 07:06 Chloride 97 mmol/L (98-108) L 09/19/24 07:06 Carbon Dioxide 30.4 mmol/L (21.0-32.0) 09/19/24 07:06 Anion Gap 14 (5-15) 09/19/24 07:06 BUN 20 mg/dL (4-19) H 09/19/24 07:06 Creatinine 1.07 mg/dL (0.70-1.20) 09/19/24 07:06 Est GFR (MDRD) Non-Af 54 (>60) L 09/19/24 07:06 BUN/Creatinine Ratio 18.6 RATIO (10-20) 09/19/24 07:06 Glucose 101 mg/dL (70-99) H 09/19/24 07:06 Assessment/Plan: 1. Pain: Tylenol 1000mg PO Q8h, Oxycodone 5-10mg PO Q4h PRN Pain 4-10. Please continue to monitor for increased/decreased s/s pain, PRN medication usage, nausea/constipation/oversedation with narcotic use. -To date, the patient has used 2 doses of PRN oxycodone 910mg) for shoulder pain rated 7/10. 2. Shoulder Joint Infection requiring surgical wash/clean out: Vancomycin 1g IV Q24hr thru 10/25/24 (being managed by pharmacy services), rifampin 300mg PO BID. Please continue to monitor vancomycin troughs as clinically indicated (last trough 10.7 on 09/18), renal function (CrCl 57mL/min), infusion reactions, angioedema, liver function ( last done 04/2024, WNL). No new culture data at this time, therapy is appropriate based on previous cultures. ID is also following patient while admitted. 3. Post-OP DVT Prophylaxis: Aspirin 81mg PO BID thru 09/28/24. Please continue tomonitor for S/S bleeding/bruising, H/H (hgb 12.3/ hct 38.9 on 09/19), s/s clot formation. 4. HTN: Norvasc 5mg PO BID, Indapamide 2.5mg PO Daily, Losartan 50mg PO BID, Lopressor 25mg PO BID.Please continue to monitor BP (last 141/88), pulse (last 89 BPM), lower extremity swelling. 5. GERD: Pepcid 20mg PO Daily. Please continue to monitor renal function (CrCl 57mL/min). Please also encourage non-pharmacologic treatments to help minimize GERD flare-ups. 6. RLS: Pramipexole 0.5mg PO Dinner and 1mg PO QHS. Please continue to monitor for abnormal dreams,dizziness, confusion, constipation, dyskinesia, drowsiness. 7. Neuropathic Pain: Gabapentin 600mg PO QHS. Please continue to monitor for oversedation, renal function (CrCl 57mL/min). This is a BEER's criteria medication which can increase the risk of falls/fractures in patients >65 years of age. Please evaluate the risk vs. benefit of prolonged use if clinically indicated. 8. Dry Eyes: Refresh artificial tears 2 gtt OU Q1h PRN. 9. Insomnia: Melatonin 10mg PO QHS. Please continue to monitor for oversedation,drowsiness, medication effectiveness. If medication appears ineffective, try administering at least 2hrs prior to desired bedtime to allow for maximum effectiveness. 10. Skin Integrity: Calmoseptine topically BID. Please continue to monitor for skin redness, irritation, ulcer/wound formations. 11. Bowel/ Gas: Senna/Docusate 1 tab PO daily, Dulcolax 10mg PO Daily PRN, magnesium Citrate 300mL PO x1 PRN, Simethicone 80mg PO TID PRN, Loperamide 2mg PO Q2h PRN. Please continue to monitor for increased/decreased constipation and/or diarrhea, abdominal pain/bloating, gas buildup. - The patient's last documented BM was on 09/18/24. Please continue to monitorfor a regular bowel schedule Assessment/Plan for indications treated with psychotropic medications: 1. Depression: Bupropion XL 150mg PO Daily, Cymbalta 30mg PO daily, Remeron 15mgPO QHS. Please consider a GDR by 03/2025 if clinically indicated, thank you. Remeron and Cymbalta are both BEER's Criteria medications which can cause hyponatremia and reduce falls/fractures in patients >65 years of age. Please evaluate risk v. benefite of using for a prolonged period of time. Medical chart and medication regimen reviewed. The following medication irregularities or issues were identified: 1. Please consider obtaining LFTs since patient will be on rifampin for an extended period of time if clinically indicated, thank you. 2. Depression: Bupropion XL 150mg PO Daily, Cymbalta 30mg PO daily, Remeron 15mgPO QHS. Please consider a GDR by 03/2025 if clinically indicated, thank you. Date Date of Note: 09/19/24 09/19/24 1504 Shabnam Herndon Signature (if applicable): CC: ~ Signed ADDENDUM by Shabnam Zarate on 09/20/24 at 1051 Addendum ADDING YANICK 09/20/24 1051 > Date _ Shabnam Zarate 09/20/24 1342 D> Yanick Signature (if applicable): Date cc: ~* Signed ADDENDUM by Dr. Rodrigo Sanches MD on 09/20/24 at 1342 Addendum Agree with recommendations. 09/20/24 1342 D> Date _ Rodrigo Sanches MD Signature (if applicable): Date cc: ~* Signed [facility]03-21-2025 Progress note [facility] Medical Records Department [address] [place] [address] Progress Note - Infect Disease 09/20/24 1336 MR#: [id number] Acct: [id number] Name: OSCAR WOO Rep #:[id number] : 1950 74 From: Sixto calhoun MD PCP: Dr. Hernando Grimes MD Status:ADM IN Location: [address] Physical Exam Narrative Feeling better, shoulder improving, no fever, no n/v/d, no issues with picc Const alert and no apparent distress General Appearance: cooperative Resp normal air movement and clear to auscultation bilaterally Cardio regular rate and regular rhythm GI soft to palpation, non-tender and non-distended Skin no rashes or lesions noted ID ID: Route of nutrition/ use of supplements: [] Nutritional Intake: [] IV Site: [] Day Catheter: [] Assessment & Plan Assessment/Plan (1) Infection of prosthetic shoulder joint: PLAN: Aspiration cx with MRSA. Taken to OR 09/13/[address] Cavanaugh for revision; surg cx x2 with MSSA. Picc in place. Plan is for iv vanc and po rifampin for 6 weeks with stop date 10/25/24 with weekly bmp, cbc, LFT, and ESR. After that, will need long course suppressive po abx. Will follow 09/20/24 1338 Cosigner Signature (if applicable): CC: ~ Signed [facility]03-21-2025 Consult note [facility] Medical Records Department [address] [place] [address] Pharmacokinetic/Renal -Consult 09/20/24 0902 MR#: [id number] Acct: [id number] Name: OSCAR WOO Rep #:[id number] : 1950 74 From: Jonh kurtz PCP: Dr. Hernando Grimes MD Status:ADM IN Y Location: [place] [address] Consult Antibiotic Management Pharmacy has been consulted to manage selected antibiotic: Vancomycin Type of Intervention Type of Consult: Follow-up Prior Doses of Antibiotics Prior Doses of Antibiotics Received/Current Regimen: current dose is 1000mg IV q24h Labs Labs: Sodium 142 mmol/L (133-145) 09/19/24 07:06 Potassium 4.6 mmol/L (3.3-5.1) 09/19/24 07:06 Chloride 97 mmol/L (98-108) L 09/19/24 07:06 Carbon Dioxide 30.4 mmol/L (21.0-32.0) 09/19/24 07:06 Anion Gap 14 (5-15) 09/19/24 07:06 BUN 20 mg/dL (4-19) H 09/19/24 07:06 Creatinine 1.07 mg/dL (0.70-1.20) 09/19/24 07:06 Est GFR (MDRD) Non-Af 54 (>60) L 09/19/24 07:06 BUN/Creatinine Ratio 18.6 RATIO (10-20) 09/19/24 07:06 Glucose 101 mg/dL (70-99) H 09/19/24 07:06 Vancomycin Trough 9.9 ug/mL (5.0-15.0) 09/20/24 07:35 Dosing Weight Weight used for dosin kg Estimated Creatinine Clearance Estimated Creatinine Clearance: 57ml/min Goal Trough Goal Trough: 10-15 mcg/mL Pharmacy Plan for Drug Dosing Pharmacy Plan for Drug Dosing: The vanc trough drawn at 07:35 today (drawn approx 22 hours after the most recent dose) was 9.9 mcg/ml. This is below goal and has dropped from the last trough result of 10.7 so will increase dose [id number] IV q24h. Will check another trough before the 3rd dose. Pharmacy Service will continue to monitor and adjust dosing as required. Follow-Up Labs Follow-Up Labs: Trough: Vancomycin Date/Time Labs Ordered Labs to be done on [date and time ordered]: 09/22/24 08:30 09/20/24 0905 erg> Date _ Jonh Khalil 09/20/24 1326 D> Cosigner Signature (if applicable): Date Rodrigo Sanches MD CC: ~ Signed [facility]03-20-2025 Progress note Author Sixto Andrade [facility] Note Date/Time September 19, 2024 7:5 9am [facility] Medical Records Department [address] [place] [address] Progress Note - Infect Disease 09/19/24756 MR#: [id number] Acct: [id number] Name: OSCAR WOO Rep #:[id number] : 1950 74 From: Sixto calhoun MD PCP: Dr. Hernando Grimes MD Status:ADM IN Location: [place] [address] ID ID: Route of nutrition/ use of supplements: [] Nutritional Intake: [] IV Site: [] Day Catheter: [] Assessment & Plan Assessment/Plan (1) Infection of prosthetic shoulder joint: PLAN: Aspiration cx with MRSA. Taken to OR 09/13/[address] Cavanaugh for revision; surg cx x2 with MSSA. Picc in place. Plan is for iv vanc and po rifampin for 6 weeks with stop date 10/25/24 with weekly bmp, cbc, LFT, and ESR. After that, will need long course suppressive po abx. Will follow while at [facility], reviewed labs and chart. 09/19/24758 <Electronically signed by Sixto Andrade MD> Cosigner Signature (if applicable): CC: ~ Signed [facility] Work Phone: 1(438) 431-373603-20-2025 Progress note [facility] Medical Records Department [address] [place] [address] Progress Note - Infect Disease 09/19/24756 MR#: [id number] Acct: [id number] Name: OSCAR WOO Rep #:[id number] : 1950 74 From: Sixto calhoun MD PCP: Dr. Hernando Grimes MD Status:ADM IN Location: [place] [address] ID ID: Route of nutrition/ use of supplements: [] Nutritional Intake: [] IV Site: [] Day Catheter: [] Assessment & Plan Assessment/Plan (1) Infection of prosthetic shoulder joint: PLAN: Aspiration cx with MRSA. Taken to OR 09/13/[address] Cavanaugh for revision; surg cx x2 with MSSA. Picc in place. Plan is for iv vanc and po rifampin for 6 weeks with stop date 10/25/24 with weekly bmp, cbc, LFT, and ESR. After that, will need long course suppressive po abx. Will follow while at U, reviewed labs and chart. 09/19/24 2760 Cosigner Signature (if applicable): CC: ~ Signed [facility]03-19-2025 History and physical note Author Rodrigo Sanches [facility] Note Date/Time September 18, 2024 8:5 7pm [facility] Medical Records Department [address] [place] [address] History & Physical Exam 09/18/242035 MR#: [id number] Acct: [id number] Name: OSCAR WOO Rep #:[id number] : 1950 74 From: Rodrigo Sanches MD PCP: Dr. Hernando Grimes MD Status:ADM IN Location: [place] [address] HPI - General General Date of Admission: 09/18/24 Date of Service: 09/18/24 HPI Narrative OSCAR WOO, is a 74 Female who presents with following: Patient underwent left reverse total shoulder [place] [address] Cavanaugh, left shoulder had no issues, or pain until 1 week prior to admission. 09/13/2024 Patient has left shoulder periprosthetic joint infection. 09/13/2024 Dr. Cavanaugh performed irrigation debridement, complete synovectomy revision left reverse total shoulder replacement. 09/14/2024 Sitting up in chair, left arm sling. Previous culture growing MRSA, on Vancomycin IV. Hold amlodipine, Hold Indapamide for low blood pressure. Hemoglobin 10.2. 09/15/2024 More short of breath. Vancomycin IV, shoulder culture growing S. Aureus, blood cultures negative. Pulsox 88%, viral swab pending. Hold blood pressure medications 2/2 low blood pressure. Hemoglobin improved. 09/16/2024 ID recommended 6 weeks IV Vancomycin/PO Rifampin via PICCline for MRSA, MSSA left shoulder periprosthetic joint infection. 09/16/2024 Unable to go home alone.. PT/OT SNF. 09/16/2024 Check stool for c. diff for diarrhea. 09/17/2024 ID states after IV Vancomycin for 6 weeks, will need prolonged PO suppressive therapy. 09/18/2024 Admit to TCU with debility, here for rehabilitation, strengthening, intravenous antibiotics, prior to discharge home alone. [facility] Medical History MRSA (methicillin resistant staph aureus) culture positive Wears glasses Post-menopausal Depression Anxiety Walker as ambulation aid Ambulates with cane Arthritis High cholesterol Back pain Restless legs Former smoker Shortness of breath on exertion History of pain when walking History of edema Hypertension Home Medications ?Medication ?Instructions ?Recorded ?Last Taken ?Type losartan 50 mg tablet 50 mg PO BID BP 09/19/14 History melatonin 5 mg tablet 10 mg PO QHS INSOMNIA Unknown History indapamide 1.25 mg tablet 2.5 mg PO DAILY BP 04/12/17 Unknown History pramipexole 0.5 mg tablet (Mirapex) 1 mg PO QHS RLS Unknown History bupropion HCl 300 mg 24 hr tablet, 150 mg PO DAILY DEP RESSION 06/11/20 09/13/24 History extended release gabapentin 600 mg tablet 600 mg PO QHS SLEEP 06/11/20 Unknown History mirtazapine 15 mg tablet 15 mg PO QHS INSOMNIA 06/23/20 20:00 History amlodipine 10 mg tablet 5 mg PO BID BP 09/11/2408/31 History duloxetine 30 mg capsule,delayed 30 mg PO DAILY DEPRES RAHEEM 09/11/24 09/13/24 History release (Cymbalta) pramipexole 0.5 mg tablet 0.5 mg PO DINNER RLS 5 Unknown History rifampin 300 mg capsule 300 mg PO BID antibiotic 39 days 09/16/24 Unknown Rx #78 caps vancomycin 1 gram/200 mL in 1,000 mg IV Q24H infection 39 days 09/16/24 Unknown Rx dextrose 5 % intravenous piggyback #3,900 mL acetaminophen 500 mg tablet 1,000 mg (2 x 500 mg) PO Q 8 pain 09/17/24 Unknown Rx #1 TAB aspirin 81 mg chewable tablet 81 mg PO BID blood thinn er #0 tabs 09/17/24 Unknown Rx famotidine 20 mg tablet 20 mg PO DAILY reflux #0 tab s 09/17/24 Unknown Rx loperamide 2 mg capsule 2 mg PO Q2H PRN PRN DIARRHEA #0 09/17/24 Unknown Rx caps metoprolol tartrate 25 mg tablet 25 mg PO BID pulse/BP #0 tabs 09/17/24 Unknown Rx oxycodone 5 mg tablet 5 - 10 mg (1 - 2 x 5 mg) PO Q4H 09/17/24 Unknown Rx PRN PRN Pain Score 4-10 2 days #10 tabs sennosides 8.6 mg-docusate sodium 1 tab PO DAILY stool softener #0 09/17/24 Unknown Rx 50 mg tablet (Stimulant Laxative tabs Plus) simethicone 40 mg/0.6 mL oral 80 mg (1.2 mL) PO TID WV N Gas #0 mL 09/17/24 Unknown Rx drops,suspension (Infants Simethicone) Allergy/AdvReac Type Severity Reaction Status Date / Time Penicillins Allergy Anaphylaxis Verified 09/13/24 12:05 Surgical History History of surgery Hx of colonoscopy Hx of right cataract extraction Hx of left cataract extraction History of partial colectomy Hx of appendectomy Hx of total hip arthroplasty Hx of total shoulder replacement Hx of lumbar discectomy Hx of total shoulder replacement Hx of total hip arthroplasty Social History (Updated 09/18/24 @ 20:[address] Rodrigo Sanches MD) household members: none Smoking Status: Former smoker alcohol intake: never substance use type: does not use ROS Constitutional Constitutional: Reports weakness ENT HEENT: Denies headache(s), nasal congestion or nasal discharge Cardiovascular Cardiovascular: Denies chest pain or palpitations Respiratory/Chest Respiratory/Chest: Denies cough, excessive phlegm production or shortness of breath with exertion Gastrointestinal Gastrointestinal: Denies abdominal pain, nausea or vomiting Genitourinary Genitourinary: Denies dysuria Musculoskeletal Musculoskeletal: Denies joint pain or joint swelling Integumentary Integumentary: Denies rash or wounds Neurologic Neurologic: Denies focal weakness, numbness or tingling Psychiatric Psychiatric: Denies anxiety, auditory hallucinations, depression, homicidal ideation or suicidal ideation Vital Signs Vital Signs Vital Signs: 09/18/24 13:14 09/18/24 14:20 Temperature 97.5 F L Temperature Source Temporal Pulse Rate 87 86 Pulse Rhythm Irregular Pulse Strength Normal (2+) Respiratory Rate 18 18 Respiratory Effort Normal Non-Labored Respiratory Depth Normal Respiratory Pattern Normal Blood Pressure 173/91 H Blood Pressure Mean 118 Blood Pressure Source Monitor Blood Pressure Position Sitting Blood Pressure Location Left Arm Pulse Ox 95 96 Oxygen Delivery Method Room Air Room Air Weight Weight: 107.275 kg Body Mass Index (BMI) 37.0 Physical Exam Const alert General Appearance: cooperative HEENT normocephalic Eyes PERRL and EOMs intact bilaterally Neck supple, no JVD and no carotid bruits Resp normal respiratory effort, normal air movement and clear to auscultation bilaterally Cardio regular rate and regular rhythm GI normal to inspection, nondistended, normoactive bowel sounds, non-tender and non-distended Extremity normal capillary refill Extremity Narrative: RUE PICC line, LUE sling/immobilizer. General Extremity: Negative for edema Skin no rashes or lesions noted General Skin Exam: no breakdown Psych affect normal Appearance: appropriate Assessment & Plan Assessment/Plan (1) Debility: (2) Infection and inflammatory reaction due to other internal joint prosthesis, initial encounter: (3) Acute respiratory failure with hypoxia: (4) Essential (primary) hypertension: (5) Depression: QUALIFIERS: Depression Type: unspecified Qualified Code(s): F32.A- Depression, unspecified (6) Neuropathy: (7) Restless legs: (8) Insomnia: QUALIFIERS: Insomnia type: unspecified Qualified Code(s): G47.00 - Insomnia, unspecified PLAN: Plan 74 year old female with below past medical history hospitalized for left shoulder periprosthetic joint infection, underwent irrigation debridement complete synovectomy, revision left reverse total shoulder replacement 09/13/2024with Dr. Cavanaugh, postoperative course complicated by acute respiratory failure with hypoxia, admitted to TCU with debility, here for rehabilitation, strengthening, intravenous antbiotics, prior to discharge home alone. * Debility - PT/OT. * Pain - Tylenol 1000mg q8, Oxycodone 5-10mg q4h prn. * Bowel - senna/colace 1 tablet daily, Dulcolax 10mg pr daily prn, Magnesium citrate 300mL po x 1 prn, Loperamide 2mg q2h prn. * Adult immunization - Administer pneumonia vaccine, covid vaccine, flu vaccine as appropriate. * DVT prophylaxis - Aspirin 81mg bid thru 09/28/2024. * Hypertension - Metoprolol 25mg bid, Amlodipine 5mg bid, Losartan 50mg bid, In dapamide 2.5mg daily. * Depression - Bupropion XL 150mg daily, Duloxetine 30mg daily, Mirtazapine 15mg qhs, stable chronic residential use, GDR not recommended. * Dry eyes - Artificial tears 2gtt ou q1h prn. * GERD - Famotidine 20mg daily. * Neuropathic pain - Gabapentin 600mg qhs. * Insomnia - Melatonin 10mg qhs. * Skin irritation - Calmoseptine topical bid. * Restless leg syndrome - Mirapex 0.5mg dinner, 1mg qhs. 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 Andrade for expert care. * Gas - Simethicone 80mg tid prn. 09/18/242056 <Electronically signed by Rodrigo Sanches MD> Cosigner Signature (if applicable): CC: Dr. Hernando Grimes MD; Dr. Rodrigo Sanches MD~ Signed [facility] Work Phone: 1(105) 847-442203-19-2025 History and physical note [facility] Medical Records Department [address] [place] [address] History & Physical Exam 09/18/242035 MR#: [id number] Acct: [id number] Name: OSCAR WOO Rep #:[id number] : 1950 74 From: Rodrigo Sanches MD PCP: Dr. Hernando Grimes MD Status:ADM IN Location: [facility] TCU06-1 HPI - General General Date of Admission: 09/18/24 Date of Service: 09/18/24 HPI Narrative OSCAR WOO, is a 74 Female who presents with following: Patient underwent left reverse total shoulder [place] [address] Cavanaugh, left shoulder had no issues, or pain until 1 week prior to admission. 09/13/2024 Patient has left shoulder periprosthetic joint infection. 09/13/2024 Dr. Cavanaugh performed irrigation debridement, complete synovectomy revision left reverse total shoulder replacement. 09/14/2024 Sitting up in chair, left arm sling. Previous culture growing MRSA, on Vancomycin IV. Hold amlodipine, Hold Indapamide for low blood pressure. Hemoglobin 10.2. 09/15/2024 More short of breath. Vancomycin IV, shoulder culture growing S. Aureus, blood cultures negative. Pulsox 88%, viral swab pending. Hold blood pressure medications 2/2 low blood pressure. Hemoglobin improved. 09/16/2024 ID recommended 6 weeks IV Vancomycin/PO Rifampin via PICCline for MRSA, MSSA left shoulder periprosthetic joint infection. 09/16/2024 Unable to go home alone.. PT/OT SNF. 09/16/2024 Check stool for c. diff for diarrhea. 09/17/2024 ID states after IV Vancomycin for 6 weeks, will need prolonged PO suppressive therapy. 09/18/2024 Admit to TCU with debility, here for rehabilitation, strengthening, intravenous antibiotics, prior to discharge home alone. [facility] Medical History MRSA (methicillin resistant staph aureus) culture positive Wears glasses Post-menopausal Depression Anxiety Walker as ambulation aid Ambulates with cane Arthritis High cholesterol Back pain Restless legs Former smoker Shortness of breath on exertion History of pain when walking History of edema Hypertension Home Medications ?Medication ?Instructions ?Recorded ?Last Taken ?Type losartan 50 mg tablet 50 mg PO BID BP 09/19/14 History melatonin 5 mg tablet 10 mg PO QHS INSOMNIA Unknown History indapamide 1.25 mg tablet 2.5 mg PO DAILY BP 04/12/17 Unknown History pramipexole 0.5 mg tablet (Mirapex) 1 mg PO QHS RLS Unknown History bupropion HCl 300 mg 24 hr tablet, 150 mg PO DAILY DEP RESSION 06/11/20 09/13/24 History extended release gabapentin 600 mg tablet 600 mg PO QHS SLEEP 06/11/20 Unknown History mirtazapine 15 mg tablet 15 mg PO QHS INSOMNIA 06/23/20 20:00 History amlodipine 10 mg tablet 5 mg PO BID BP 09/11/2408/31 History duloxetine 30 mg capsule,delayed 30 mg PO DAILY DEPRES RAHEEM 09/11/24 09/13/24 History release (Cymbalta) pramipexole 0.5 mg tablet 0.5 mg PO DINNER RLS 5 Unknown History rifampin 300 mg capsule 300 mg PO BID antibiotic 39 days 09/16/24 Unknown Rx #78 caps vancomycin 1 gram/200 mL in 1,000 mg IV Q24H infection 39 days 09/16/24 Unknown Rx dextrose 5 % intravenous piggyback #3,900 mL acetaminophen 500 mg tablet 1,000 mg (2 x 500 mg) PO Q 8 pain 09/17/24 Unknown Rx #1 TAB aspirin 81 mg chewable tablet 81 mg PO BID blood thinn er #0 tabs 09/17/24 Unknown Rx famotidine 20 mg tablet 20 mg PO DAILY reflux #0 tab s 09/17/24 Unknown Rx loperamide 2 mg capsule 2 mg PO Q2H PRN PRN DIARRHEA #0 09/17/24 Unknown Rx caps metoprolol tartrate 25 mg tablet 25 mg PO BID pulse/BP #0 tabs 09/17/24 Unknown Rx oxycodone 5 mg tablet 5 - 10 mg (1 - 2 x 5 mg) PO Q4H 09/17/24 Unknown Rx PRN PRN Pain Score 4-10 2 days #10 tabs sennosides 8.6 mg-docusate sodium 1 tab PO DAILY stool softener #0 09/17/24 Unknown Rx 50 mg tablet (Stimulant Laxative tabs Plus) simethicone 40 mg/0.6 mL oral 80 mg (1.2 mL) PO TID W[place] N Gas #0 mL 09/17/24 Unknown Rx drops,suspension (Infants Simethicone) Allergy/AdvReac Type Severity Reaction Status Date / Time Penicillins Allergy Anaphylaxis Verified 09/13/24 12:05 Surgical History History of surgery Hx of colonoscopy Hx of right cataract extraction Hx of left cataract extraction History of partial colectomy Hx of appendectomy Hx of total hip arthroplasty Hx of total shoulder replacement Hx of lumbar discectomy Hx of total shoulder replacement Hx of total hip arthroplasty Social History (Updated 09/18/24 @ 20:[address] Rodrigo Sanches MD) household members: none Smoking Status: Former smoker alcohol intake: never substance use type: does not use ROS Constitutional Constitutional: Reports weakness ENT HEENT: Denies headache(s), nasal congestion or nasal discharge Cardiovascular Cardiovascular: Denies chest pain or palpitations Respiratory/Chest Respiratory/Chest: Denies cough, excessive phlegm production or shortness of breath with exertion Gastrointestinal Gastrointestinal: Denies abdominal pain, nausea or vomiting Genitourinary Genitourinary: Denies dysuria Musculoskeletal Musculoskeletal: Denies joint pain or joint swelling Integumentary Integumentary: Denies rash or wounds Neurologic Neurologic: Denies focal weakness, numbness or tingling Psychiatric Psychiatric: Denies anxiety, auditory hallucinations, depression, homicidal ideation or suicidal ideation Vital Signs Vital Signs Vital Signs: 09/18/24 13:14 09/18/24 14:20 Temperature 97.5 F L Temperature Source Temporal Pulse Rate 87 86 Pulse Rhythm Irregular Pulse Strength Normal (2+) Respiratory Rate 18 18 Respiratory Effort Normal Non-Labored Respiratory Depth Normal Respiratory Pattern Normal Blood Pressure 173/91 H Blood Pressure Mean 118 Blood Pressure Source Monitor Blood Pressure Position Sitting Blood Pressure Location Left Arm Pulse Ox 95 96 Oxygen Delivery Method Room Air Room Air Weight Weight: 107.275 kg Body Mass Index (BMI) 37.0 Physical Exam Const alert General Appearance: cooperative HEENT normocephalic Eyes PERRL and EOMs intact bilaterally Neck supple, no JVD and no carotid bruits Resp normal respiratory effort, normal air movement and clear to auscultation bilaterally Cardio regular rate and regular rhythm GI normal to inspection, nondistended, normoactive bowel sounds, non-tender and non-distended Extremity normal capillary refill Extremity Narrative: RUE PICC line, LUE sling/immobilizer. General Extremity: Negative for edema Skin no rashes or lesions noted General Skin Exam: no breakdown Psych affect normal Appearance: appropriate Assessment & Plan Assessment/Plan (1) Debility: (2) Infection and inflammatory reaction due to other internal joint prosthesis, initial encounter: (3) Acute respiratory failure with hypoxia: (4) Essential (primary) hypertension: (5) Depression: QUALIFIERS: Depression Type: unspecified Qualified Code(s): F32.A- Depression, unspecified (6) Neuropathy: (7) Restless legs: (8) Insomnia: QUALIFIERS: Insomnia type: unspecified Qualified Code(s): G47.00 - Insomnia, unspecified PLAN: Plan 74 year old female with below past medical history hospitalized for left shoulder periprosthetic joint infection, underwent irrigation debridement complete synovectomy, revision left reverse total shoulder replacement 09/13/2024with Dr. Cavanaugh, postoperative course complicated by acute respiratory failure with hypoxia, admitted to TCU with debility, here for rehabilitation, strengthening, intravenous antbiotics, prior to discharge home alone. * Debility - PT/OT. * Pain - Tylenol 1000mg q8, Oxycodone 5-10mg q4h prn. * Bowel - senna/colace 1 tablet daily, Dulcolax 10mg pr daily prn, Magnesium citrate 300mL po x 1 prn, Loperamide 2mg q2h prn. * Adult immunization - Administer pneumonia vaccine, covid vaccine, flu vaccine as appropriate. * DVT prophylaxis - Aspirin 81mg bid thru 09/28/2024. * Hypertension - Metoprolol 25mg bid, Amlodipine 5mg bid, Losartan 50mg bid, In dapamide 2.5mg daily. * Depression - Bupropion XL 150mg daily, Duloxetine 30mg daily, Mirtazapine 15mg qhs, stable chronic residential use, GDR not recommended. * Dry eyes - Artificial tears 2gtt ou q1h prn. * GERD - Famotidine 20mg daily. * Neuropathic pain - Gabapentin 600mg qhs. * Insomnia - Melatonin 10mg qhs. * Skin irritation - Calmoseptine topical bid. * Restless leg syndrome - Mirapex 0.5mg dinner, 1mg qhs. 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 Andrade for expert care. * Gas - Simethicone 80mg tid prn. 09/18/242056 Cosigner Signature (if applicable): CC: Dr. Hernando Grimes MD; Dr. Rodrigo Sanches MD~ Signed [facility]03-19-2025 [facility] Medical Records Department [address] [place] [address] History Physical Exam 09/18/242035 MR#: [id number] Acct: [id number] Name: OSCAR WOO Rep #: [id number] : 1950 74 From: Rodrigo Sanches MD PCP: Dr. Hernando Grimes MD Status:ADM IN Location: TCU [facility]06-1 HPI - General General Date of Admission: 09/18/24 Date of Service: 09/18/24 HPI Narrative OSCAR WOO, is a 74 Female who presents with following: Patient underwent left reverse total shoulder [place] [address] Cavanaugh, left shoulder had no issues, or pain until 1 week prior to admission. 09/13/2024 Patient has left shoulder periprosthetic joint infection. 09/13/2024 Dr. Cavanaugh performed irrigation debridement, complete synovectomy revision left reverse total shoulder replacement. 09/14/2024 Sitting up in chair, left arm sling. Previous culture growing MRSA, on Vancomycin IV. Hold amlodipine, Hold Indapamide for low blood pressure. Hemoglobin 10.2. 09/15/2024 More short of breath. Vancomycin IV, shoulder culture growing S. Aureus, blood cultures negative. Pulsox 88%, viral swab pending. Hold blood pressure medications 2/2 low blood pressure. Hemoglobin improved. 09/16/2024 ID recommended 6 weeks IV Vancomycin/PO Rifampin via PICCline for MRSA, MSSA left shoulder periprosthetic joint infection. 09/16/2024 Unable to go home alone.. PT/OT SNF. 09/16/2024 Check stool for c. diff for diarrhea. 09/17/2024 ID states after IV Vancomycin for 6 weeks, will need prolonged PO suppressive therapy. 09/18/2024 Admit to TCU with debility, here for rehabilitation, strengthening, intravenous antibiotics, prior to discharge home alone. [facility] Medical History MRSA (methicillin resistant staph aureus) culture positive Wears glasses Post-menopausal Depression Anxiety Walker as ambulation aid Ambulates with cane Arthritis High cholesterol Back pain Restless legs Former smoker Shortness of breath on exertion History of pain when walking History of edema Hypertension Home Medications ???Medication ???Instructions ???Recorded ???Last Taken ???Type losartan 50 mg tablet 50 mg PO BID BP 09/19/14 09/13/24 History melatonin 5 mg tablet 10 mg PO QHS INSOMNIA 09/19/14 Unk nown History indapamide 1.25 mg tablet 2.5 mg PO DAILY BP 04/12/17 Unknow n History pramipexole 0.5 mg tablet (Mirapex) 1 mg PO QHS RLS 04/12/17 Unknow n History bupropion HCl 300 mg 24 hr tablet, 150 mg PO DAILY DEPRESSION 06/1109/13/24 History extended release gabapentin 600 mg tablet 600 mg PO QHS SLEEP 06/11/20 Unkno wn History mirtazapine 15 mg tablet 15 mg PO QHS INSOMNIA 06/24/20 20:00 History amlodipine 10 mg tablet 5 mg PO BID BP 09/11/24 09/13/24 H istory duloxetine 30 mg capsule,delayed 30 mg PO DAILY DEPRESSION 09/11/24 09/13/24 History release (Cymbalta) pramipexole 0.5 mg tablet 0.5 mg PO DINNER RLS 09/11/24 Unkn own History rifampin 300 mg capsule 300 mg PO BID antibiotic 39 days 0 09/16/24 Unknown Rx #78 caps vancomycin 1 gram/200 mL in 1,000 mg IV Q24H infection 39 days 09/16/24 Unknown Rx dextrose 5 % intravenous piggyback #3,900 mL acetaminophen 500 mg tablet 1,000 mg (2 x 500 mg) PO Q8 pain 0 09/17/24 Unknown Rx #1 TAB aspirin 81 mg chewable tablet 81 mg PO BID blood thinner #0 tabs 09/17/24 Unknown Rx famotidine 20 mg tablet 20 mg PO DAILY reflux #0 tabs 08/31 02/24 Unknown Rx loperamide 2 mg capsule 2 mg PO Q2H PRN PRN DIARRHEA #0 Unknown Rx caps metoprolol tartrate 25 mg tablet 25 mg PO BID pulse/BP #0 tabs 08/31 02/24 Unknown Rx oxycodone 5 mg tablet 5 - 10 mg (1 - 2 x 5 mg) PO Q4H Unknown Rx PRN PRN Pain Score 4-10 2 days #10 tabs sennosides 8.6 mg-docusate sodium 1 tab PO DAILY stool softener #0 09/17/24 Unknown Rx 50 mg tablet (Stimulant Laxative tabs Plus) simethicone 40 mg/0.6 mL oral 80 mg (1.2 mL) PO TID PRN Gas #0 m L 09/17/24 Unknown Rx drops,suspension (Infants Simethicone) Allergy/AdvReac Type Severity Reaction Status Date / Time Penicillins Allergy Anaphylaxis Verified 09/13/24 12:05 Surgical History History of surgery Hx of colonoscopy Hx of right cataract extraction Hx of left cataract extraction History of partial colectomy Hx of appendectomy Hx of total hip arthroplasty Hx of total shoulder replacement Hx of lumbar discectomy Hx of total shoulder replacement Hx of total hip arthroplasty Social History (Updated 09/18/24 @ 20:[address] Rodrigo Sanches MD) household members: none Smoking Status: Former smoker alcohol intake: never substance use type: does not use ROS Constitutional Constitutional: Reports weakness EN (more content not included)...[facility]03-19-2025 Note [facility] Medical Records Department [address] [place] [address] Discharge Summary 09/18/24 1255 MR#: [id number] Acct: [id number] Name: OSCAR WOO Rep #: [id number] : 1950 74 From: Zhanna CASTILLO PCP: Dr. Hernando Grimes MD Status:DIS IN Location: [facility] VJ327-2 Providers Date of Admission: 09/14/24 Primary Care Physician: Dr. Hernando Grimes MD Consultations 09/13/24 16:15 Consult: Hospitalist Routine Consulting Provider: [facility] Reason for Consult: post op med management EMERGENT Consult: No MD Notified: Yes Date Notified: 09/13/24 Time Notified: 19:20 Method of Notification: Verbal 09/16/24 09:40 Consult: Infectious Disease Routine Consulting Provider: Sixto Andrade Reason for Consult: left TSH PJI EMERGENT Consult: No MD Notified: Yes Date Notified: 09/16/24 Time Notified: 09:40 Method of Notification: Verbal Reason For Visit: Pre-Surgical Testing Diagnosis Discharge Diagnosis (1) Infection and inflammatory reaction due to other internal joint prosthesis, initial encounter: Status: Acute Code(s): T84.59XA - Infection and inflammatory reaction due to other internal joint prosthesis, initial encounter (2) History of reverse total replacement of right shoulder joint: Status: Acute Code(s): Z96.611 - Presence of right artificial shoulder joint Plan: Postop day 5 irrigation debridement, synovectomy and revision left shoulder replacement interchangeable parts 1. Pain control: Patient will be taking Tylenol and oxycodone for pain control. Patient will be taking oxycodone as needed. An OARRS was reviewed by myself today. The risk of abuse potential was discussed and reviewed. Patient was advised not to drive motor vehicle or operate heavy equipment while taking narcotic pain medication. 2. DVT prophylaxis: Aspirin 81 mg p.o. twice daily for 4 weeks postoperatively as well as ELEAZAR hose until 2 weeks postoperatively. 3. Physical therapy: PT OT work on ADLs and gentle range of motion exercises. Patient was educated on the reverse total shoulder protocol and educated to continue following. 4. Infectious disease: Infectious disease was able to see and evaluate the patient today. Have recommended vancomycin IV for 6 weeks. Patient will also be doing p.o. rifampin for 6 weeks. Patient does have a PICC line in place at this time. This will be stopped on 10/25/2024. 5. Hb/Hct: 11.0/35.3 from 09/16/2024. Currently asymptomatic and improving postoperatively. Vital signs are stable. Likely related to blood loss during surgery. 6. Medical management: Patient current chronic diseases are being managed by medicine. Appreciate recommendations from medicine for safe and proper discharge planning. 7. Hypoxia: Patient's hypoxia has seemed to resolved with patient now being 95% on room air. 8. Constipation: Patient did have an episode of diarrhea yesterday which she asked for Imodium for patient did have an episode of diarrhea yesterday which she asked for Imodium for and now patient is being followed by C. difficile guidelines. Dr. Joshua did not believe that this is related to C. difficile at this time. Patient is negative for C. difficile at this time. 9. Incentive spirometry: Patient was encouraged to do the incentive spirometer every hour that she is awake for the first week. 10. Due to being postop day 5 patient is able to remove dressing at this time. If incision looks clean dry and intact patient can open to air. Patient can do gentle soap and water in the shower. Patient was educated not to do any soaking, submerging until 6 weeks. Patient was educated not to do any lotions, salves, oils for 6 weeks. 10. Patient is okay for discharge as long as remains medically stable, continues to work with physical therapy, and pain maintains adequately controlled. 11. Appreciate recommendations from both case management and medicine services for safe and proper discharge. Disposition: PICC line in place. Plan for 6 weeks IV vancomycin as well as 6 weeks of p.o. rifampin. Initial plans were for discharge home however, patient doing poorly with physical therapy and unable to manage IV antibiotics at home. Patient will be going to the TCU at [facility]. Patient received acceptance yesterday but a bed was not available until today 09/18/2024. Appreciate recommendations from medicine and case management for safe discharge planning. Patient will follow- up per postoperative instructions. Reverse total shoulder protocol was reviewed with patient today. Patient has a 2-week follow-up at our office. Patient will begin outpatient physical therapy following her 2-week visit at our office. Patient was encouraged to call with any questions, concerns, new problems. Medications at Discharge Home Medications losartan 50 mg tablet 50 mg PO BID BP 09/19/14 melatonin 5 mg tablet 10 mg (more content not included)...[facility]03-19-2025 Consult note [facility] Medical Records Department [address] [place] [address] Counseling Note - Pharmacy 09/18/24 1009 MR#: [id number] Acct: [id number] Name: OSCAR WOO Rep #:[id number] : 1950 74 From: Ashley Sue PCP: Dr. Hernando Grimes MD Status:ADM IN Location: [facility] HQ263-2 Pharmacy [place] Med Reconciliation Pharmacy Service has performed discharge medication reconciliation for this patient. The patient's discharge medication list was reviewed for discrepancies and discrepancies were resolved. Medications at Discharge Home Medications losartan 50 mg tablet 50 mg PO BID BP 09/19/14 melatonin 5 mg tablet 10 mg PO QHS INSOMNIA 09/19/14 indapamide 1.25 mg tablet 2.5 mg PO DAILY BP 04/12/17 pramipexole 0.5 mg tablet (Mirapex) 1 mg PO QHS RLS 04/12/17 bupropion HCl 300 mg 24 hr tablet, extended release 150 mg PO DAILY DEPRESSION 06/11/20 gabapentin 600 mg tablet 600 mg PO QHS SLEEP 06/11/20 mirtazapine 15 mg tablet 15 mg PO QHS INSOMNIA 06/24/20 amlodipine 10 mg tablet 5 mg PO BID BP 09/11/24 duloxetine 30 mg capsule,delayed release (Cymbalta) 30 mg PO DAILY DEPRESSION 09/11/24 pramipexole 0.5 mg tablet 0.5 mg PO DINNER RLS 09/11/24 rifampin 300 mg capsule 300 mg PO BID 39 days #78 caps 09/16/24 vancomycin 1 gram/200 mL in dextrose 5 % intravenous piggyback 1,000 mg IV Q24H 39 days #3,900 mL 09/16/24 acetaminophen 500 mg tablet 1,000 mg (2 x 500 mg) PO Q8 #1 TAB 09/17/24 aspirin 81 mg chewable tablet 81 mg PO BID #0 tabs 09/17/24 famotidine 20 mg tablet 20 mg PO DAILY #0 tabs 09/17/24 loperamide 2 mg capsule 2 mg PO Q2H PRN PRN DIARRHEA #0 caps 09/17/24 metoprolol tartrate 25 mg tablet 25 mg PO BID #0 tabs 09/17/24 oxycodone 5 mg tablet 5 - 10 mg (1 - 2 x 5 mg) PO Q4H PRN PRN Pain Score 4-10 2 days #10 tabs 09/17/24 sennosides 8.6 mg-docusate sodium 50 mg tablet (Stimulant Laxative Plus) 1 tab PO DAILY #0 tabs 09/17/24 simethicone 40 mg/0.6 mL oral drops,suspension (Infants Simethicone) 80 mg (1.2 mL) PO TID PRN Gas #0 mL 09/17/24 09/18/24 1009 Date _ Ashley Herndon Signature (if applicable): CC: ~ Signed [facility]03-19-2025 Consult note Author Ashley Sue [facility] Note Date/Time September 18, 2024 12: 30pm [facility] Medical Records Department [address] [place] [address] Counseling Note - Pharmacy 09/18/24 1009 MR#: [id number] Acct: [id number] Name: OSCAR WOO Rep #:[id number] : 1950 74 From: Ashley Sue PCP: Dr. Hernando Grimes MD Status:ADM IN [facility] [place] Med Reconciliation Pharmacy Service has performed discharge medication reconciliation for this patient. The patient's discharge medication list was reviewed for discrepancies and discrepancies were resolved. Medications at Discharge Home Medications losartan 50 mg tablet 50 mg PO BID BP 09/19/14 melatonin 5 mg tablet 10 mg PO QHS INSOMNIA 09/19/14 indapamide 1.25 mg tablet 2.5 mg PO DAILY BP 04/12/17 pramipexole 0.5 mg tablet (Mirapex) 1 mg PO QHS RLS 04/12/17 bupropion HCl 300 mg 24 hr tablet, extended release 150 mg PO DAILY DEPRESSION 06/11/20 gabapentin 600 mg tablet 600 mg PO QHS SLEEP 06/11/20 mirtazapine 15 mg tablet 15 mg PO QHS INSOMNIA 06/24/20 amlodipine 10 mg tablet 5 mg PO BID BP 09/11/24 duloxetine 30 mg capsule,delayed release (Cymbalta) 30 mg PO DAILY DEPRESSION 09/11/24 pramipexole 0.5 mg tablet 0.5 mg PO DINNER RLS 03/12/25 rifampin 300 mg capsule 300 mg PO BID 39 days #78 caps 09/16/24 vancomycin 1 gram/200 mL in dextrose 5 % intravenous piggyback 1,000 mg IV Q24H 39 days #3,900 mL 09/16/24 acetaminophen 500 mg tablet 1,000 mg (2 x 500 mg) PO Q8 #1 TAB 09/17/24 aspirin 81 mg chewable tablet 81 mg PO BID #0 tabs 09/17/24 famotidine 20 mg tablet 20 mg PO DAILY #0 tabs 09/17/24 loperamide 2 mg capsule 2 mg PO Q2H PRN PRN DIARRHEA #0 caps 09/17/24 metoprolol tartrate 25 mg tablet 25 mg PO BID #0 tabs 09/17/24 oxycodone 5 mg tablet 5 - 10 mg (1 - 2 x 5 mg) PO Q4H PRN PRN Pain Score 4-10 2 days #10 tabs 09/17/24 sennosides 8.6 mg-docusate sodium 50 mg tablet (Stimulant Laxative Plus) 1 tab PO DAILY #0 tabs 09/17/24 simethicone 40 mg/0.6 mL oral drops,suspension (Infants Simethicone) 80 mg (1.2 mL) PO TID PRN Gas #0 mL 09/17/24 09/18/24 1009 <Electronically signed by Ashley Sue> Date _ Ashley Sue Cosigner Signature (if applicable): Date CC: ~ Signed [facility] Work Phone: [phone] 449-339903-19-2025 Progress note Author Jamie Jiagn [facility] Note Date/Time September 18, 2024 9:1 1am [facility] Medical Records Department [address] [place] [address] Progress Note - Hospitalist 09/18/24907 MR#: [id number] Acct: [id number] Name: OSCAR WOO Rep #:[id number] : 1950 74 From: Jamie Jiang DO PCP: Dr. Hernando Grimes MD Status:ADM IN Location: [facility] JN568-1 Reason for Visit Reason for Visit: Diagnoses Depression, unspecified (09/14/24) Restless legs syndrome (09/14/24) Insomnia, unspecified (09/14/24) Polyneuropathy, unspecified (09/14/24) Essential (primary) hypertension (09/14/24) Infection and inflammatory reaction due to other internal joint prosthesis, initial encounter (09/14/24) Pain due to internal orthopedic prosthetic devices, implants and grafts, initialencounter (09/14/24) Encounter for other preprocedural examination (09/14/24) Presence of right artificial shoulder joint (09/14/24) Presence of left artificial shoulder joint (09/14/24) Subjective Subjective Patient was seen and examined today, she has been accepted to TCU for inpatient skilled services. Patient has no complaints today of severe shoulder pain. I talked briefly to orthopedic surgery about her care today. Objective Data Objective Data Vital Signs: Vital Signs Temp Pulse Resp BP Pulse Ox O2 Del Method O2 Flow Rate 97.7 F L 87 14 160/87 H 90 Room Air 2 09/18/24 07:20 09/18/24 08:25 09/18/24 07:25 09/18/24 07:20 09/18/24 07:25 09/18/24 08:30 09/16/24 14:49 Oxygen Flow Rate (L/min) 2 Oxygen Delivery Method Room Air Weight: 105.4 kg Body Mass Index (BMI) 36.3 Intake & Output: Intake and Output for Last 24 Hours 09/16/24 09/17/24 09/18/24 23:59 23:59 23:59 Intake Total 2850 / 2850 1400 / 1400 Output Total 600 / 600 Balance 2850 / 2850 800 / 800 Lab / Micro Data 09/16/24 06:00 09/16/24 06:00 Labs: Laboratory Results - last 24 hr 09/18/24 06:30: Vancomycin Trough 10.7 Micro: Microbiology 09/13/24 Unknown Tissue - Shoulder Gram Stain - Final 09/13/24 Unknown Tissue - Shoulder Wound Culture - Final Staphylococcus aureus 09/13/24 Unknown Tissue - Shoulder Anaerobic Culture - Final No anaerobic bacteria isolated. 09/13/24 Unknown Tissue - Shoulder Gram Stain - Final 09/13/24 Unknown Tissue - Shoulder Wound Culture - Final Staphylococcus aureus 09/13/24 Unknown Tissue - Shoulder Anaerobic Culture - Final No anaerobic bacteria isolated. 09/13/24 Unknown Tissue - Shoulder Gram Stain - Final 09/13/24 Unknown Tissue - Shoulder Wound Culture - Final Staphylococcus aureus 09/13/24 Unknown Tissue - Shoulder Anaerobic Culture - Final No anaerobic bacteria isolated. 09/17/24 08:30 Stool Clostridioides difficile (PCR) - Final 09/11/24 Unknown Fluid - Synovial (joint) Gram Stain - Final 09/11/24 Unknown Fluid - Synovial (joint) Body Fluid Culture - Final Meth. resistant Staph. aureus 09/11/24 Unknown Fluid - Synovial (joint) Anaerobic Culture - Final No anaerobic bacteria isolated. 09/15/24 11:10 Mucosa - Nasopharyngeal Coronavirus COVID-19 PCR - Final 09/15/24 11:10 Mucosa - Nasopharyngeal Respiratory Panel (PCR) - Final 09/13/24 14:35 Blood Culture (Wb) - Left Wrist Blood Culture - Preliminary No growth in 48 hours. 09/12/24 08:19 Swab (Method) Nasal Screen MRSA/MSSA - Final Physical Exam Narrative alert, oriented x3 and no apparent distress General Appearance: cooperative, well kempt and well developed Orientation / Consciousness: awake, oriented to person, oriented to place and oriented to time HEENT normocephalic, head/scalp atraumatic and moist oral mucous membranes Eyes PERRL, EOMs intact bilaterally and conjunctivae normal Neck supple, no JVD, thyroid normal and no carotid bruits General: trachea midline Resp normal respiratory effort, no retractions, no use of accessory muscles and clearto auscultation bilaterally Auscultation: Negative for rales, rhonchi or wheezes Cardio regular rate, regular rhythm, S1 normal heart sound, S2 normal heart sound, no murmurs, no rub and no gallops GI normal to inspection, nondistended, normoactive bowel sounds, soft to palpation,non-tender and non-distended Extremity Extremity Narrative: Patient's left shoulder is in a shoulder immobilizer Skin no rashes or lesions noted Neuro oriented x3, CN's II-XII intact bilaterally, no focal motor deficits and no sensory deficits noted Neuro Narrative: Patient's left shoulder is in a shoulder immobilizer at this time Sensorium / Orientation: awake and alert Speech: speech normal Psych affect normal Assessment & Plan Assessment/Plan (1) Infection and inflammatory reaction due to other internal joint prosthesis, initial encounter: (2) History of reverse total replacement of right shoulder joint: PLAN: Plan 1. Essential hypertension-patient will remain on her present medications at the[facility], blood pressure medicines may need to be adjusted #2 chronic depression-patient is on BuSpar Cymbalta and Remeron #3 neuropathy-patient is currently on gabapentin #4 restless leg syndrome-patient is on Mirapex #5 postop day 4 irrigation debridement complete synovectomy revision left reverse total shoulder replacement revision-PT and OT will continue to work withthe patient, infectious diseases is directing antibiotic coverage #6 infection and inflammatory reaction with joint prosthesis left shoulder- organisms include MSSA and MRSA-patient will be treated with vancomycin and rifampin #7 chronic diarrhea-patient has no complaints of diarrhea today Total clinical time spent by myself addressing the patient's medical issues, reviewing all of her data, and collaborating with patient's care team: 50 minutes Charges/Coding Visit Charges Inpatient E&M: 62954 Subs Hosp L3 09/18/24 0911 <Electronically signed by Jamie Jiang DO> Cosigner Signature (if applicable): CC: ~ Signed [facility] Work Phone: [phone]) 618-895703-19-2025 Progress note Author Zhanna Ivy [facility] Note Date/Time September 18, 2024 7:5 5am [facility] Medical Records Department [address] [place] [address] Progress Note - Orthopedic 09/18/24 0748 MR#: [id number] Acct: [id number] Name: OSCAR WOO Rep #:[id number] : 1950 74 From: Zhanna CASTILLO PCP: Dr. Hernando Grimes MD Status:ADM IN Location: [place] [id number] Subjective Subjective Patient was lying comfortably in bed. Patient was very excited that she got accepted to [facility] TCU and patient was eager to get out of here. Patient states that she has been working with physical therapy and Occupational Therapy and things have been going well. Patient was C. difficile negative. Patient states that her pain is adequately controlled. Patient was educated that due to today being postop day 5 she is able to take her dressing off later this afternoon. Patient denies any nausea, vomiting, dizziness, lightheadedness. Patient denies any shortness of breath, chest pain, calf pain. Patient denies any fever, chills, signs of infection. Patient denies any adverse events overnight. Objective Data Objective Data Vital Signs: Vital Signs Temp Pulse Resp BP Pulse Ox O2 Del Method O2 Flow Rate 98.2 F 78 16 145/67 H 94 Room Air 2 09/18/24 02:30 09/18/24 02:30 09/18/24 02:30 09/18/24 02:30 09/18/24 02:30 09/18/24 07:47 09/16/24 14:49 Oxygen Flow Rate (L/min) 2 Oxygen Delivery Method Room Air Weight: 105.4 kg Body Mass Index (BMI) 36.3 Intake & Output: Intake and Output for Last 24 Hours 09/16/24 09/17/24 09/18/24 23:59 23:59 23:59 Intake Total 2850 / 2850 1400 / 1400 Output Total 600 / 600 Balance 2850 / 2850 800 / 800 Lab / Micro Data 09/16/24 06:00 09/16/24 06:00 Labs: Laboratory Results - last 24 hr 09/18/24 06:30: Vancomycin Trough 10.7 Micro: Microbiology 09/13/24 Unknown Tissue - Shoulder Gram Stain - Final 09/13/24 Unknown Tissue - Shoulder Wound Culture - Final Staphylococcus aureus 09/13/24 Unknown Tissue - Shoulder Anaerobic Culture - Final No anaerobic bacteria isolated. 09/13/24 Unknown Tissue - Shoulder Gram Stain - Final 09/13/24 Unknown Tissue - Shoulder Wound Culture - Final Staphylococcus aureus 09/13/24 Unknown Tissue - Shoulder Anaerobic Culture - Final No anaerobic bacteria isolated. 09/13/24 Unknown Tissue - Shoulder Gram Stain - Final 09/13/24 Unknown Tissue - Shoulder Wound Culture - Final Staphylococcus aureus 09/13/24 Unknown Tissue - Shoulder Anaerobic Culture - Final No anaerobic bacteria isolated. 09/17/24 08:30 Stool Clostridioides difficile (PCR) - Final 09/11/24 Unknown Fluid - Synovial (joint) Gram Stain - Final 09/11/24 Unknown Fluid - Synovial (joint) Body Fluid Culture - Final Meth. resistant Staph. aureus 09/11/24 Unknown Fluid - Synovial (joint) Anaerobic Culture - Final No anaerobic bacteria isolated. 09/15/24 11:10 Mucosa - Nasopharyngeal Coronavirus COVID-19 PCR - Final 09/15/24 11:10 Mucosa - Nasopharyngeal Respiratory Panel (PCR) - Final 09/13/24 14:35 Blood Culture (Wb) - Left Wrist Blood Culture - Preliminary No growth in 48 hours. 09/12/24 08:19 Swab (Method) Nasal Screen MRSA/MSSA - Final Physical Exam Narrative Vital signs are stable and afebrile. Dressing is clean dry and intact. UltraSling has been appropriately fitted. Sensation intact to axillary, radial, median, ulnar distribution, Motor intact with patient able to make okay sign, cross fingers, thumbs up. ELEAZAR hose in place bilaterally. SCDs in place bilaterally. Const alert, oriented x3 and no apparent distress Assessment & Plan Assessment/Plan (1) History of reverse total replacement of right shoulder joint: PLAN: Postop day 5 irrigation debridement, synovectomy and revision left shoulder replacement interchangeable parts 1. Pain control: Patient will be taking Tylenol and oxycodone for pain control. Patient will be taking oxycodone as needed. An OARRS was reviewed by myself today. The risk of abuse potential was discussed and reviewed. Patient was advised not to drive motor vehicle or operate heavy equipment while taking narcotic pain medication. 2. DVT prophylaxis: Aspirin 81 mg p.o. twice daily for 4 weeks postoperatively as well as ELEAZAR hose until 2 weeks postoperatively. 3. Physical therapy: PT OT work on ADLs and gentle range of motion exercises. Patient was educated on the reverse total shoulder protocol and educated to continue following. 4. Infectious disease: Infectious disease was able to see and evaluate the patient today. Have recommended vancomycin IV for 6 weeks. Patient will also be doing p.o. rifampin for 6 weeks. Patient does have a PICC line in place at this time. This will be stopped on 10/25/2024. 5. Hb/Hct: 11.0/35.3 from 09/16/2024. Currently asymptomatic and improving postoperatively. Vital signs are stable. Likely related to blood loss during surgery. 6. Medical management: Patient current chronic diseases are being managed by medicine. Appreciate recommendations from medicine for safe and proper discharge planning. 7. Hypoxia: Patient's hypoxia has seemed to resolved with patient now being 95%on room air. 8. Constipation: Patient did have an episode of diarrhea yesterday which she asked for Imodium for patient did have an episode of diarrhea yesterday which she asked for Imodium for and now patient is being followed by C. difficile guidelines. Dr. Joshua did not believe that this is related to C. difficile at this time. Patient is negative for C. difficile at this time. 9. Incentive spirometry: Patient was encouraged to do the incentive spirometer every hour that she is awake for the first week. 10. Due to being postop day 5 patient is able to remove dressing at this time. If incision looks clean dry and intact patient can open to air. Patient can do gentle soap and water in the shower. Patient was educated not to do any soaking, submerging until 6 weeks. Patient was educated not to do any lotions, salves, oils for 6 weeks. 10. Patient is okay for discharge as long as remains medically stable, continues to work with physical therapy, and pain maintains adequately controlled. 11. Appreciate recommendations from both case management and medicine services for safe and proper discharge. Disposition: PICC line in place. Plan for 6 weeks IV vancomycin as well as 6 weeks of p.o. rifampin. Initial plans were for discharge home however, patient doing poorly with physical therapy and unable to manage IV antibiotics at home. Patient will be going to the TCU at [facility]. Patient received acceptance yesterday but a bed was not available until today 09/18/2024. Appreciate recommendations from medicine and case management for safe discharge planning. Patient will follow-up per postoperative instructions. Reverse total shoulder protocol was reviewed with patient today. Patient has a 2-week follow-up at our office. Patient will begin outpatient physical therapy following her 2-[facility]. Patient was encouraged to call with any questions, concerns, new problems. (2) Infection and inflammatory reaction due to other internal joint prosthesis, initial encounter: 09/18/24 8489 <Electronically signed by Zhanna CASTILLO> Cosigner Signature (if applicable): CC: ~ Signed [facility] Work Phone: [phone] Consult note Author Tete Dicato Kaminski [facility] Note Date/Time September 18, 2024 7:4 7am [facility] Medical Records Department [address] [place] [address] Pharmacokinetic/Renal -Consult 09/18/2444 MR#: [id number] Acct: [id number] Name: OSCAR WOO Rep #:[id number] : 1950 74 From: Tete Loving PCP: Dr. Hernando Grimes MD Status:ADM IN Location: [place] [id number] Consult Antibiotic Management Pharmacy has been consulted to manage selected antibiotic: Vancomycin Type of Intervention Type of Consult: Follow-up Suspected Infection Suspected Infection: Skin/Soft tissue Prior Doses of Antibiotics Prior Doses of Antibiotics Received/Current Regimen: 09/17/24 @ 0655 Labs Labs: Sodium 140 mmol/L (133-145) 09/16/24 06:00 Potassium 4.8 mmol/L (3.3-5.1) 09/16/24 06:00 Chloride 101 mmol/L (98-108) 09/16/24 06:00 Carbon Dioxide 32.4 mmol/L (21.0-32.0) H 09/16/24 06:00 Anion Gap 7 (5-15) 09/16/24 06:00 BUN 24 mg/dL (4-19) H 09/16/24 06:00 Creatinine 0.93 mg/dL (0.70-1.20) 09/16/24 06:00 Est GFR (MDRD) Non-Af 64 (>60) 09/16/24 06:00 BUN/Creatinine Ratio 25.4 RATIO (10-20) H 09/16/24 06:00 Glucose 108 mg/dL (70-99) H 09/16/24 06:00 Vancomycin Trough 10.7 ug/mL (5.0-15.0) 09/18/24 06:30 Random Vancomycin 14.4 ug/mL (0.0-15.0) 09/16/24 06:00 Microbiology Microbiology: Microbiology 09/13/24 Unknown Tissue - Shoulder Gram Stain - Final 09/13/24 Unknown Tissue - Shoulder Wound Culture - Final Staphylococcus aureus 09/13/24 Unknown Tissue - Shoulder Anaerobic Culture - Final No anaerobic bacteria isolated. 09/13/24 Unknown Tissue - Shoulder Gram Stain - Final 09/13/24 Unknown Tissue - Shoulder Wound Culture - Final Staphylococcus aureus 09/13/24 Unknown Tissue - Shoulder Anaerobic Culture - Final No anaerobic bacteria isolated. 09/13/24 Unknown Tissue - Shoulder Gram Stain - Final 09/13/24 Unknown Tissue - Shoulder Wound Culture - Final Staphylococcus aureus 09/13/24 Unknown Tissue - Shoulder Anaerobic Culture - Final No anaerobic bacteria isolated. 09/17/24 08:30 Stool Clostridioides difficile (PCR) - Final 09/11/24 Unknown Fluid - Synovial (joint) Gram Stain - Final 09/11/24 Unknown Fluid - Synovial (joint) Body Fluid Culture - Final Meth. resistant Staph. aureus 09/11/24 Unknown Fluid - Synovial (joint) Anaerobic Culture - Final No anaerobic bacteria isolated. 09/15/24 11:10 Mucosa - Nasopharyngeal Coronavirus COVID-19 PCR - Final 09/15/24 11:10 Mucosa - Nasopharyngeal Respiratory Panel (PCR) - Final 09/13/24 14:35 Blood Culture (Wb) - Left Wrist Blood Culture - Preliminary No growth in 48 hours. 09/12/24 08:19 Swab (Method) Nasal Screen MRSA/MSSA - Final Dosing Weight Weight used for dosin kg Estimated Creatinine Clearance Estimated Creatinine Clearance: 65 Goal Trough Goal Trough: 10-15 mcg/mL Pharmacy Plan for Drug Dosing Pharmacy Plan for Drug Dosing: Continue Vancomycin 1000mg every 24 hours. Pharmacy Service will continue to monitor and adjust dosing as required. Follow-Up Labs Follow-Up Labs: Trough: Vancomycin Date/Time Labs Ordered Labs to be done on [date and time ordered]: 09/20/24 @ 0700 09/18/24 2840 <Electronically signed by Tete Kaminski> Date _ Tete Luqueigner Signature (if applicable): Date CC: ~ Signed [facility] Work Phone: [phone] Progress note [facility] Medical Records Department [address] [place] [address] Progress Note - Hospitalist 09/18/24 0908 MR#: [id number] Acct: [id number] Name: OSCAR WOO Rep #:[id number] : 1950 74 From: Jamie Jiang DO PCP: Dr. Hernando Grimes MD Status:ADM IN Location: [place] [id number] Reason for Visit Reason for Visit: Diagnoses Depression, unspecified (09/14/24) Restless legs syndrome (09/14/24) Insomnia, unspecified (09/14/24) Polyneuropathy, unspecified (09/14/24) Essential (primary) hypertension (09/14/24) Infection and inflammatory reaction due to other internal joint prosthesis, initial encounter (09/14/24) Pain due to internal orthopedic prosthetic devices, implants and grafts, initialencounter (09/14/24) Encounter for other preprocedural examination (09/14/24) Presence of right artificial shoulder joint (09/14/24) Presence of left artificial shoulder joint (09/14/24) Subjective Subjective Patient was seen and examined today, she has been accepted to TCU for inpatient skilled services. Patient has no complaints today of severe shoulder pain. I talked briefly to orthopedic surgery abouther care today. Objective Data Objective Data Vital Signs: Vital Signs Temp Pulse Resp BP Pulse Ox O2 Del Method O2 Flow Rate 97.7 F L 87 14 160/87 H 90 Room Air 2 09/18/24 07:20 09/18/24 08:25 09/18/24 07:25 09/18/24 07:20 09/18/24 07:25 09/18/24 08:30 09/16/24 14:49 Oxygen Flow Rate (L/min) 2 Oxygen Delivery Method Room Air Weight: 105.4 kg Body Mass Index (BMI) 36.3 Intake & Output: Intake and Output for Last 24 Hours 09/16/24 09/17/24 09/18/24 23:59 23:59 23:59 Intake Total 2850 / 2850 1400 / 1400 Output Total 600 / 600 Balance 2850 / 2850 800 / 800 Lab / Micro Data 09/16/24 06:00 09/16/24 06:00 Labs: Laboratory Results - last 24 hr 09/18/24 06:30: Vancomycin Trough 10.7 Micro: Microbiology 09/13/24 Unknown Tissue - Shoulder Gram Stain - Final 09/13/24 Unknown Tissue - Shoulder Wound Culture - Final Staphylococcus aureus 09/13/24 Unknown Tissue - Shoulder Anaerobic Culture - Final No anaerobic bacteria isolated. 09/13/24 Unknown Tissue - Shoulder Gram Stain - Final 09/13/24 Unknown Tissue - Shoulder Wound Culture - Final Staphylococcus aureus 09/13/24 Unknown Tissue - Shoulder Anaerobic Culture - Final No anaerobic bacteria isolated. 09/13/24 Unknown Tissue - Shoulder Gram Stain - Final 09/13/24 Unknown Tissue - Shoulder Wound Culture - Final Staphylococcus aureus 09/13/24 Unknown Tissue - Shoulder Anaerobic Culture - Final No anaerobic bacteria isolated. 09/17/24 08:30 Stool Clostridioides difficile (PCR) - Final 09/11/24 Unknown Fluid - Synovial (joint) Gram Stain - Final 09/11/24 Unknown Fluid - Synovial (joint) Body Fluid Culture - Final Meth. resistant Staph. aureus 09/11/24 Unknown Fluid - Synovial (joint) Anaerobic Culture - Final No anaerobic bacteria isolated. 09/15/24 11:10 Mucosa - Nasopharyngeal Coronavirus COVID-19 PCR - Final 09/15/24 11:10 Mucosa - Nasopharyngeal Respiratory Panel (PCR) - Final 09/13/24 14:35 Blood Culture (Wb) - Left Wrist Blood Culture - Preliminary No growth in 48 hours. 09/12/24 08:19 Swab (Method) Nasal Screen MRSA/MSSA - Final Physical Exam Narrative alert, oriented x3 and no apparent distress General Appearance: cooperative, well kempt and well developed Orientation / Consciousness: awake, oriented to person, oriented to place and oriented to time HEENT normocephalic, head/scalp atraumatic and moist oral mucous membranes Eyes PERRL, EOMs intact bilaterally and conjunctivae normal Neck supple, no JVD, thyroid normal and no carotid bruits General: trachea midline Resp normal respiratory effort, no retractions, no use of accessory muscles and clearto auscultation bilaterally Auscultation: Negative for rales, rhonchi or wheezes Cardio regular rate, regular rhythm, S1 normal heart sound, S2 normal heart sound, no murmurs, no rub and no gallops GI normal to inspection, nondistended, normoactive bowel sounds, soft to palpation,non-tender and non-distended Extremity Extremity Narrative: Patient's left shoulder is in a shoulder immobilizer Skin no rashes or lesions noted Neuro oriented x3, CN's II-XII intact bilaterally, no focal motor deficits and no sensory deficits noted Neuro Narrative: Patient's left shoulder is in a shoulder immobilizer at this time Sensorium / Orientation: awake and alert Speech: speech normal Psych affect normal Assessment & Plan Assessment/Plan (1) Infection and inflammatory reaction due to other internal joint prosthesis, initial encounter: (2) History of reverse total replacement of right shoulder joint: PLAN: Plan 1. Essential [facility] blood pressure medicines may need to be adjusted #2 chronic depression-patient is on BuSpar Cymbalta and Remeron #3 neuropathy-patient is currently on gabapentin #4 restless leg syndrome-patient is on Mirapex #5 postop day 4 irrigation debridement complete synovectomy revision left reverse total shoulder replacement revision-PT and OT will continue to work withthe patient, infectious diseases is directingantibiotic coverage #6 infection and inflammatory reaction with joint prosthesis left shoulder- organisms include MSSA and MRSA-patient will be treated with vancomycin and rifampin #7 chronic diarrhea-patient has no complaints of diarrhea today Total clinical time spent by myself addressing the patient's medical issues, reviewing all of her data, and collaborating with patient's care team: 50 minutes Charges/Coding Visit Charges Inpatient E&M: 93180 Subs Hosp L3 09/18/24 0911 Cosigner Signature (if applicable): CC: ~ Signed [facility]03-19-2025 Progress note [facility] Medical Records Department [address] [facility] [place] [address] Progress Note - Orthopedic 09/18/24 0748 MR#: [id number] Acct: [id number] Name: OSCAR WOO Rep #:[id number] : 1950 74 From: Zhanna CASTILLO PCP: Dr. Hernando Grimes MD Status:ADM IN Location: [facility] [id number] Subjective Subjective Patient was lying comfortably in bed. Patient was very excited that she got accepted to [facility] TCU and patient was eager to get out of here. Patient states that she has been working with physical therapy and Occupational Therapy and things have been going well. Patient was C. difficile negative. Patient states that her pain is adequately controlled. Patient was educated that due to today being postop day 5 she is able to take her dressing off later this afternoon. Patient denies any nausea, vomiting, dizziness, lightheadedness. Patient denies any shortness of breath, chestpain, calf pain. Patient denies any fever, chills, signs of infection. Patient denies any adverse events overnight. Objective Data Objective Data Vital Signs: Vital Signs Temp Pulse Resp BP Pulse Ox O2 Del Method O2 Flow Rate 98.2 F 78 16 145/67 H 94 Room Air 2 09/18/24 02:30 09/18/24 02:30 09/18/24 02:30 09/18/24 02:30 09/18/24 02:30 09/18/24 07:47 09/16/24 14:49 Oxygen Flow Rate (L/min) 2 Oxygen Delivery Method Room Air Weight: 105.4 kg Body Mass Index (BMI) 36.3 Intake & Output: Intake and Output for Last 24 Hours 09/16/24 09/17/24 09/18/24 23:59 23:59 23:59 Intake Total 2850 / 2850 1400 / 1400 Output Total 600 / 600 Balance 2850 / 2850 800 / 800 Lab / Micro Data 09/16/24 06:00 09/16/24 06:00 Labs: Laboratory Results - last 24 hr 09/18/24 06:30: Vancomycin Trough 10.7 Micro: Microbiology 09/13/24 Unknown Tissue - Shoulder Gram Stain - Final 09/13/24 Unknown Tissue - Shoulder Wound Culture - Final Staphylococcus aureus 09/13/24 Unknown Tissue - Shoulder Anaerobic Culture - Final No anaerobic bacteria isolated. 09/13/24 Unknown Tissue - Shoulder Gram Stain - Final 09/13/24 Unknown Tissue - Shoulder Wound Culture - Final Staphylococcus aureus 09/13/24 Unknown Tissue - Shoulder Anaerobic Culture - Final No anaerobic bacteria isolated. 09/13/24 Unknown Tissue - Shoulder Gram Stain - Final 09/13/24 Unknown Tissue - Shoulder Wound Culture - Final Staphylococcus aureus 09/13/24 Unknown Tissue - Shoulder Anaerobic Culture - Final No anaerobic bacteria isolated. 09/17/24 08:30 Stool Clostridioides difficile (PCR) - Final 09/11/24 Unknown Fluid - Synovial (joint) Gram Stain - Final 09/11/24 Unknown Fluid - Synovial (joint) Body Fluid Culture - Final Meth. resistant Staph. aureus 09/11/24 Unknown Fluid - Synovial (joint) Anaerobic Culture - Final No anaerobic bacteria isolated. 09/15/24 11:10 Mucosa - Nasopharyngeal Coronavirus COVID-19 PCR - Final 09/15/24 11:10 Mucosa - Nasopharyngeal Respiratory Panel (PCR) - Final 09/13/24 14:35 Blood Culture (Wb) - Left Wrist Blood Culture - Preliminary No growth in 48 hours. 09/12/24 08:19 Swab (Method) Nasal Screen MRSA/MSSA - Final Physical Exam Narrative Vital signs are stable and afebrile. Dressing is clean dry and intact. UltraSling has been appropriately fitted. Sensation intact to axillary, radial, median, ulnar distribution, Motor intact with patient able to make okay sign, cross fingers, thumbs up. ELEAZAR hose in place bilaterally. SCDs in place bilaterally. Const alert, oriented x3 and no apparent distress Assessment & Plan Assessment/Plan (1) History of reverse total replacement of right shoulder joint: PLAN: Postop day 5 irrigation debridement, synovectomy and revision left shoulder replacement interchangeable parts 1. Pain control: Patient will be taking Tylenol and oxycodone for pain control. Patient will be taking oxycodone as needed. An OARRS was reviewed by myself today. The risk of abuse potential was discussed and reviewed. Patient was advised not to drive motor vehicle or operate heavy equipment while taking narcotic pain medication. 2. DVT prophylaxis: Aspirin 81 mg p.o. twice daily for 4 weeks postoperatively as well as ELEAZAR hose until 2 weeks postoperatively. 3. Physical therapy: PT OT work on ADLs and gentle range of motion exercises. Patient was educated on the reverse total shoulder protocol and educated to continue following. 4. Infectious disease: Infectious disease was able to see and evaluate the patient today. Have recommended vancomycin IV for 6 weeks. Patient will also be doing p.o. rifampin for 6 weeks. Patient does have a PICC line in place at this time. This will be stopped on 10/25/2024. 5. Hb/Hct: 11.0/35.3 from 09/16/2024. Currently asymptomatic and improving postoperatively. Vital signs are stable. Likely related to blood loss during surgery. 6. Medical management: Patient current chronic diseases are being managed by medicine. Appreciate recommendations from medicine for safe and proper discharge planning. 7. Hypoxia: Patient's hypoxia has seemed to resolved with patient now being 95%on room air. 8. Constipation: Patient did have an episode of diarrhea yesterday which she asked for Imodium for patient did have an episode of diarrhea yesterday which she asked for Imodium for and now patient isbeing followed by C. difficile guidelines. Dr. Joshua did not believe that this is related to C. difficile at this time. Patient is negative for C. difficile at this time. 9. Incentive spirometry: Patient was encouraged to do the incentive spirometer every hour that she is awake for the first week. 10. Due to being postop day 5 patient is able to remove dressing at this time. If incision looks clean dry and intact patient can open to air. Patient can do gentle soap and water in the shower. Patient was educated not to do any soaking, submerging until 6 weeks. Patient was educated not to do anylotions, salves, oils for 6 weeks. 10. Patient is okay for discharge as long as remains medically stable, continues to work with physical therapy, and pain maintains adequately controlled. 11. Appreciate recommendations from both case management and medicine services for safe and proper discharge. Disposition: PICC line in place. Plan for 6 weeks IV vancomycin as well as 6 weeks of p.o. rifampin. Initial plans were for discharge home however, patient doing poorly with physical therapy and unable to manage IV antibiotics at home. Patient will be going to the TCU at [facility]. Patient received acceptance yesterday but a bed was not available until today 09/18/2024. Appreciate recommendations from medicine and case management for safe discharge planning. Patient will follow-up per postoperative instructions. Reverse total shoulder protocol was reviewed with patient today. Patient has a 2-week follow-up at our office. Patient will begin outpatient physical therapy following her 2-week visit at [facility]. Patient was encouraged to call with any questions, concerns, new problems. (2) Infection and inflammatory reaction due to other internal joint prosthesis, initial encounter: 09/18/24 1090 Cosigner Signature (if applicable): CC: ~ Signed [facility]03-19-2025 Consult note [facility] Medical Records Department [address] [place] [address] Pharmacokinetic/Renal -Consult 09/18/24 0744 MR#: [id number] Acct: [id number] Name: OSCAR WOO Rep #:[id number] : 1950 74 From: Tete Loving PCP: Dr. Hernando Grimes MD Status:ADM IN Location: [place] [address] Consult Antibiotic Management Pharmacy has been consulted to manage selected antibiotic: Vancomycin Type of Intervention Type of Consult: Follow-up Suspected Infection Suspected Infection: Skin/Soft tissue Prior Doses of Antibiotics Prior Doses of Antibiotics Received/Current Regimen: 09/17/24 @ 0655 Labs Labs: Sodium 140 mmol/L (133-145) 09/16/24 06:00 Potassium 4.8 mmol/L (3.3-5.1) 09/16/24 06:00 Chloride 101 mmol/L (98-108) 09/16/24 06:00 Carbon Dioxide 32.4 mmol/L (21.0-32.0) H 09/16/24 06:00 Anion Gap 7 (5-15) 09/16/24 06:00 BUN 24 mg/dL (4-19) H 09/16/24 06:00 Creatinine 0.93 mg/dL (0.70-1.20) 09/16/24 06:00 Est GFR (MDRD) Non-Af 64 (>60) 09/16/24 06:00 BUN/Creatinine Ratio 25.4 RATIO (10-20) H 09/16/24 06:00 Glucose 108 mg/dL (70-99) H 09/16/24 06:00 Vancomycin Trough 10.7 ug/mL (5.0-15.0) 09/18/24 06:30 Random Vancomycin 14.4 ug/mL (0.0-15.0) 09/16/24 06:00 Microbiology Microbiology: Microbiology 09/13/24 Unknown Tissue - Shoulder Gram Stain - Final 09/13/24 Unknown Tissue - Shoulder Wound Culture - Final Staphylococcus aureus 09/13/24 Unknown Tissue - Shoulder Anaerobic Culture - Final No anaerobic bacteria isolated. 09/13/24 Unknown Tissue - Shoulder Gram Stain - Final 09/13/24 Unknown Tissue - Shoulder Wound Culture - Final Staphylococcus aureus 09/13/24 Unknown Tissue - Shoulder Anaerobic Culture - Final No anaerobic bacteria isolated. 09/13/24 Unknown Tissue - Shoulder Gram Stain - Final 09/13/24 Unknown Tissue - Shoulder Wound Culture - Final Staphylococcus aureus 09/13/24 Unknown Tissue - Shoulder Anaerobic Culture - Final No anaerobic bacteria isolated. 09/17/24 08:30 Stool Clostridioides difficile (PCR) - Final 09/11/24 Unknown Fluid - Synovial (joint) Gram Stain - Final 09/11/24 Unknown Fluid - Synovial (joint) Body Fluid Culture - Final Meth. resistant Staph. aureus 09/11/24 Unknown Fluid - Synovial (joint) Anaerobic Culture - Final No anaerobic bacteria isolated. 09/15/24 11:10 Mucosa - Nasopharyngeal Coronavirus COVID-19 PCR - Final 09/15/24 11:10 Mucosa - Nasopharyngeal Respiratory Panel (PCR) - Final 09/13/24 14:35 Blood Culture (Wb) - Left Wrist Blood Culture - Preliminary No growth in 48 hours. 09/12/24 08:19 Swab (Method) Nasal Screen MRSA/MSSA - Final Dosing Weight Weight used for dosin kg Estimated Creatinine Clearance Estimated Creatinine Clearance: 65 Goal Trough Goal Trough: 10-15 mcg/mL Pharmacy Plan for Drug Dosing Pharmacy Plan for Drug Dosing: Continue Vancomycin 1000mg every 24 hours. Pharmacy Service will continue to monitor and adjust dosing as required. Follow-Up Labs Follow-Up Labs: Trough: Vancomycin Date/Time Labs Ordered Labs to be done on [date and time ordered]: 09/20/24 @ 0700 09/18/24 [facility] [place] Date _ Tete Herndon Signature (if applicable): Date CC: ~ Signed [facility]03-18-2025 Discharge summary Author Jamie Jiang [facility] Note Date/Time September 17, 2024 5:2 7pm [facility] Medical Records Department [address] [place] [address] Transfer to [facility] MR#: [id number] Acct: [id number] Name: OSCAR WOO Rep #:[id number] : 1950 74 From: Jamie Jiang DO PCP: Dr. Hernando Grimes MD Status:ADM IN Certification of patient admission REQUIRED AT TIME OF ADMISSION. I CERTIFY THAT POST-HOSPITAL ECF SERVICES ARE REQUIRED TO BE GIVEN ON AN IN-PATIENT BASIS BECAUSE OF THE ABOVE NAMED PATIENT'S NEED FOR HALFWAY CARE ON A CONTINUING BASIS FOR THE CONDITION(S) FOR WHICH HE/SHE WAS RECEIVINGIN-PATIENT HOSPITAL SERVICES PRIOR TO HIS/HER TRANSFER TO THE ECF. 09/17/24 1727<Electronically signed by Jamie Jiang DO> Diet Diet Order/Speech Therapy: 09/13/24 19:52 Diet: Regular - General Routine Orders/Code Status Routine Lab Work: CBC (Weekly starting 09/23/24) and - (CMP weekly starting 09/23/2024) Code Status: DNRCC-A (No intubation) DC O2, CPAP, BIPAP needs Home O2 Discharge instructions: No Wound(s) LEFT SHOULDER: Wound Type: Surgical Incision Therapies Weight Bearing: Full weight bearing Physical Therapy: Eval and Treat Occupational Therapy: Eval and Treat Problem/Diagnosis (1) History of reverse total replacement of right shoulder joint: Status: Acute Code(s): Z96.611 - Presence of right artificial shoulder joint (2) Infection and inflammatory reaction due to other internal joint prosthesis, initial encounter: Status: Acute Code(s): T84.59XA - Infection and inflammatory reaction due to other internal joint prosthesis, initial encounter Plan 1. Essential hypertension-patient's blood pressure was high today, I made the decision to add metoprolol to her present blood pressure medications. #2 chronic depression-patient is on BuSpar Cymbalta and Remeron #3 neuropathy-patient is currently on gabapentin #4 restless leg syndrome-patient is on Mirapex #5 postop day 4 irrigation debridement complete synovectomy revision left reverse total shoulder replacement revision-PT and OT will continue to work withthe patient, infectious diseases is directing antibiotic coverage #6 infection and inflammatory reaction with joint prosthesis left shoulder- organisms include MSSA and MRSA-patient will be treated with vancomycin and rifampin #7 chronic diarrhea-patient had diarrhea yesterday and a C. difficile test was sent which was negative. Patient has had a bowel resection in the past and intermittently does have diarrhea according to the patient. Total clinical time spent by myself addressing the patient's medical issues, reviewing all of her data, and collaborating with patient's care team: 35 minutes Allergies/Procedures Done in Hospital Allergies Penicillins Allergy (Verified 09/13/24 12:05) Anaphylaxis Procedures: PICC line placement and - (Irrigation debridement complete synovectomy revision left reverse total shoulder replacement revision-09/13/2024) Type of Care/Length of Stay Estimated LOS: Convalescent Care Less Than 30 days Type of Care Needed: Skilled Rehab Potential: Good Prognosis: Good Additional Orders/Day of Discharge H&P will serve as current which was dated: 09/11/24 Day of Discharge: 09/18/24 Discharge Plan Admission Admit Date/Time: 09/14/24 12:40 Primary Reason for Your Visit: Left shoulder periprosthetic joint infection Attending Provider: Fahad Cavanaugh Primary Care Provider: Hernando Grimes Consulting Providers: Emili Lee; Jamie Jiang; Sixto Andrade Instructions Patient Instructions: PICC, PICC Change Dressing Dc, Caring for Your PICC Dc, PICC Line Flushing Home Ch, Flushing Your PICC Line at Home, ED PICC Line Care Additional Instructions / Restrictions: Wear shoulder immobilizer at all times Discharge Orders/Prescriptions Prescriptions: New vancomycin in dextrose 5 % 1 gram/200 mL Piggyback 1,000 mg IV Q24H 39 Days Qty: 3900 0RF Rx Instructions: stop date 10/25/24. Dx: shoulder PJI. weekly bmp, cbc, vanc trough, and esr. Fax to [phone]. Routine picc care per protocol. rifampin 300 mg Capsule 300 mg PO BID 39 Days Qty: 78 0RF loperamide 2 mg Capsule 2 mg PO Q2H PRN PRN (Reason: DIARRHEA) Qty: 0 0RF acetaminophen 500 mg Tablet 1,000 mg PO Q8 Qty: 1 0RF famotidine 20 mg Tablet 20 mg PO DAILY Qty: 0 0RF aspirin 81 mg Tablet,Chewable 81 mg PO BID Qty: 0 0RF oxycodone 5 mg Tablet 5 - 10 mg PO Q4H PRN PRN (Reason: Pain Score 4-10) 2 Days Qty: 10 0RF metoprolol tartrate 25 mg Tablet 25 mg PO BID Qty: 0 0RF sennosides-docusate sodium [Stimulant Laxative Plus] 8.6-50 mg Tablet 1 tab PO DAILY Qty: 0 0RF simethicone [Infants Simethicone] 40 mg/0.6 mL Drops,Suspension 80 mg PO TID PRN (Reason: Gas) Qty: 0 0RF Continued losartan 50 MG tablet 50 mg PO BID Patient Comments: BLOOD PRESSURE melatonin 5 MG tablet 10 mg PO QHS Patient Comments: SLEEP pramipexole [Mirapex] 0.5 MG tablet 1 mg PO QHS Patient Comments: RESTLESS LEGS indapamide 1.25 MG tablet 2.5 mg PO DAILY gabapentin 600 MG tablet 600 mg PO QHS bupropion HCl 300 MG tablet extended release 24 hr 150 mg PO DAILY mirtazapine 15 MG tablet 15 mg PO QHS pramipexole 0.5 mg tablet 0.5 mg PO DINNER amlodipine 10 mg tablet 5 mg PO BID duloxetine [Cymbalta] 30 mg capsule,delayed release(DR/EC) 30 mg PO DAILY Referrals / Follow Up: Hernando Grimes MD [Primary Care Provider] - Sixto Andrade MD [Med Staff - Active Staff] - See Referral Note (In 2 weeks- call for an appointment) Fahad Cavanaugh MD [Med Staff - Active Staff] - See Referral Note (In 2 weeks, call for an appointment) Disposition Disposition (needs filled in before D/C Order can be placed): [facility] 09/17/24 1727 <Electronically signed by Jamie Jiang DO> Cosigner Signature (if applicable): CC: Dr. Hernando Grimes MD; Dr. Jamie Jiang DO; Dr. Emili Lee MD; Dr. Sixto Andrade MD ~ [facility] Work Phone: [phone]) 899-724003-18-2025 Progress note Author Jamie Jiang [facility] Note Date/Time September 17, 2024 5:1 3pm [facility] Medical Records Department [address] [place] [address] Progress Note - Hospitalist 09/17/24 1709 MR#: [id number] Acct: [id number] Name: WOOOSCAR Rep #:[id number] : 1950 74 From: Jamie Jiang DO PCP: Dr. Hernando Grimes MD Status:ADM IN Location: [facility] [id number] Reason for Visit Reason for Visit: Diagnoses Depression, unspecified (09/14/24) Restless legs syndrome (09/14/24) Insomnia, unspecified (09/14/24) Polyneuropathy, unspecified (09/14/24) Essential (primary) hypertension (09/14/24) Infection and inflammatory reaction due to other internal joint prosthesis, initial encounter (09/14/24) Pain due to internal orthopedic prosthetic devices, implants and grafts, initialencounter (09/14/24) Encounter for other preprocedural examination (09/14/24) Presence of right artificial shoulder joint (09/14/24) Presence of left artificial shoulder joint (09/14/24) Subjective Subjective Patient was seen and examined today, [facility] Patient had some gas pains today but otherwise has been doing well. Objective Data Objective Data Vital Signs: Vital Signs Temp Pulse Resp BP Pulse Ox O2 Del Method O2 Flow Rate 98.5 F 87 16 154/71 H 96 Room Air 2 09/17/24 15:07 09/17/24 15:07 09/17/24 15:07 09/17/24 15:07 09/17/24 15:07 09/17/24 15:07 09/16/24 14:49 Oxygen Flow Rate (L/min) 2 Oxygen Delivery Method Room Air Weight: 105.4 kg Body Mass Index (BMI) 36.3 Intake & Output: Intake and Output for Last 24 Hours 09/15/24 09/16/24 09/17/24 23:59 23:59 23:59 Intake Total 1411.25 / 1411.25 2850 / 2850 1400 / 1400 Output Total 600 / 600 Balance 1411.25 / 1411.25 2850 / 2850 800 / 800 Lab / Micro Data 09/16/24 06:00 09/16/24 06:00 Micro: Microbiology 09/13/24 Unknown Tissue - Shoulder Gram Stain - Final 09/13/24 Unknown Tissue - Shoulder Wound Culture - Final Staphylococcus aureus 09/13/24 Unknown Tissue - Shoulder Anaerobic Culture - Final No anaerobic bacteria isolated. 09/13/24 Unknown Tissue - Shoulder Gram Stain - Final 09/13/24 Unknown Tissue - Shoulder Wound Culture - Final Staphylococcus aureus 09/13/24 Unknown Tissue - Shoulder Anaerobic Culture - Final No anaerobic bacteria isolated. 09/13/24 Unknown Tissue - Shoulder Gram Stain - Final 09/13/24 Unknown Tissue - Shoulder Wound Culture - Final Staphylococcus aureus 09/13/24 Unknown Tissue - Shoulder Anaerobic Culture - Final No anaerobic bacteria isolated. 09/17/24 08:30 Stool Clostridioides difficile (PCR) - Final 09/11/24 Unknown Fluid - Synovial (joint) Gram Stain - Final 09/11/24 Unknown Fluid - Synovial (joint) Body Fluid Culture - Final Meth. resistant Staph. aureus 09/11/24 Unknown Fluid - Synovial (joint) Anaerobic Culture - Final No anaerobic bacteria isolated. 09/15/24 11:10 Mucosa - Nasopharyngeal Coronavirus COVID-19 PCR - Final 09/15/24 11:10 Mucosa - Nasopharyngeal Respiratory Panel (PCR) - Final 09/13/24 14:35 Blood Culture (Wb) - Left Wrist Blood Culture - Preliminary No growth in 48 hours. 09/12/24 08:19 Swab (Method) Nasal Screen MRSA/MSSA - Final Physical Exam Narrative alert, oriented x3 and no apparent distress General Appearance: cooperative, well kempt and well developed Orientation / Consciousness: awake, oriented to person, oriented to place and oriented to time HEENT normocephalic, head/scalp atraumatic and moist oral mucous membranes Eyes PERRL, EOMs intact bilaterally and conjunctivae normal Neck supple, no JVD, thyroid normal and no carotid bruits General: trachea midline Resp normal respiratory effort, no retractions, no use of accessory muscles and clearto auscultation bilaterally Auscultation: Negative for rales, rhonchi or wheezes Cardio regular rate, regular rhythm, S1 normal heart sound, S2 normal heart sound, no murmurs, no rub and no gallops GI normal to inspection, nondistended, normoactive bowel sounds, soft to palpation,non-tender and non-distended Extremity Extremity Narrative: Patient's left shoulder is in a shoulder immobilizer Skin no rashes or lesions noted Neuro oriented x3, CN's II-XII intact bilaterally, no focal motor deficits and no sensory deficits noted Neuro Narrative: Patient's left shoulder is in a shoulder immobilizer at this time Sensorium / Orientation: awake and alert Speech: speech normal Psych affect normal Assessment & Plan Assessment/Plan (1) History of reverse total replacement of right shoulder joint: (2) Infection and inflammatory reaction due to other internal joint prosthesis, initial encounter: PLAN: Plan 1. Essential hypertension-patient's blood pressure was high today, I made the decision to add metoprolol to her present blood pressure medications. #2 chronic depression-patient is on BuSpar Cymbalta and Remeron #3 neuropathy-patient is currently on gabapentin #4 restless leg syndrome-patient is on Mirapex #5 postop day 4 irrigation debridement complete synovectomy revision left reverse total shoulder replacement revision-PT and OT will continue to work withthe patient, infectious diseases is directing antibiotic coverage #6 infection and inflammatory reaction with joint prosthesis left shoulder- organisms include MSSA and MRSA-patient will be treated with vancomycin and rifampin #7 chronic diarrhea-patient had diarrhea yesterday and a C. difficile test was sent which was negative. Patient has had a bowel resection in the past and intermittently does have diarrhea according to the patient. Total clinical time spent by myself addressing the patient's medical issues, reviewing all of her data, and collaborating with patient's care team: 35 minutes Charges/Coding Visit Charges Inpatient E&M: 67087 Subs Hosp L2 09/17/24 1713 <Electronically signed by Jamie Jiang DO> Cosigner Signature (if applicable): CC: ~ Signed [facility] Work Phone: [phone]) 575-371103-18-2025 Discharge summary [facility] Medical Records Department [address] [place] [id number] Transfer to [facility] MR#: [id number] Acct: [id number] Name: OSCAR WOO Rep #:[id number] : 1950 74 From: Jamie Jiang DO PCP: Dr. Hernando Grimes MD Status:ADM IN Certification of patient admission REQUIRED AT TIME OF ADMISSION. I CERTIFY THAT POST-HOSPITAL ECF SERVICES ARE REQUIRED TO BE GIVEN ON AN IN-PATIENT BASIS BECAUSE OF THE ABOVE NAMED PATIENT'S NEED FOR HALFWAY CARE ON A CONTINUING BASIS FOR THE CONDITION(S) FOR WHICH HE/SHE WAS RECEIVINGIN-PATIENT HOSPITAL SERVICES PRIOR TO HIS/HER TRANSFER TO THE [facility]. 09/17/24 1727 Diet Diet Order/Speech Therapy: 09/13/24 19:52 Diet: Regular - General Routine Orders/Code Status Routine Lab Work: CBC (Weekly starting 09/23/24) and - (CMP weekly starting 09/23/2024) Code Status: DNRCC-A (No intubation) DC O2, CPAP, BIPAP needs Home O2 Discharge instructions: No Wound(s) LEFT SHOULDER: Wound Type: Surgical Incision Therapies Weight Bearing: Full weight bearing Physical Therapy: Eval and Treat Occupational Therapy: Eval and Treat Problem/Diagnosis (1) History of reverse total replacement of right shoulder joint: Status: Acute Code(s): Z96.611 - Presence of right artificial shoulder joint (2) Infection and inflammatory reaction due to other internal joint prosthesis, initial encounter: Status: Acute Code(s): T84.59XA - Infection and inflammatory reaction due to other internal joint prosthesis, initial encounter Plan 1. Essential hypertension-patient's blood pressure was high today, I made the decision to add metoprolol to her present blood pressure medications. #2 chronic depression-patient is on BuSpar Cymbalta and Remeron #3 neuropathy-patient is currently on gabapentin #4 restless leg syndrome-patient is on Mirapex #5 postop day 4 irrigation debridement complete synovectomy revision left reverse total shoulder replacement revision-PT and OT will continue to work withthe patient, infectious diseases is directingantibiotic coverage #6 infection and inflammatory reaction with joint prosthesis left shoulder- organisms include MSSA and MRSA-patient will be treated with vancomycin and rifampin #7 chronic diarrhea-patient had diarrhea yesterday and a C. difficile test was sent which was negative. Patient has had a bowel resection in the past and intermittently does have diarrhea according to the patient. Total clinical time spent by myself addressing the patient's medical issues, reviewing all of her data, and collaborating with patient's care team: 35 minutes Allergies/Procedures Done in Hospital Allergies Penicillins Allergy (Verified 09/13/24 12:05) Anaphylaxis Procedures: PICC line placement and - (Irrigation debridement complete synovectomy revision left reverse total shoulder replacement revision-09/13/2024) Type of Care/Length of Stay Estimated LOS: Convalescent Care Less Than 30 days Type of Care Needed: Skilled Rehab Potential: Good Prognosis: Good Additional Orders/Day of Discharge H&P will serve as current which was dated: 09/11/24 Day of Discharge: 09/18/24 Discharge Plan Admission Admit Date/Time: 09/14/24 12:40 Primary Reason for Your Visit: Left shoulder periprosthetic joint infection Attending Provider: Fahad Cavanaugh Primary Care Provider: Hernando Grimes Consulting Providers: Emili Lee; Jamie Jiang; Sixto Andrade Instructions Patient Instructions: PICC, PICC Change Dressing Dc, Caring for Your PICC Dc, PICC Line Flushing Home Ch, Flushing Your PICC Line at Home, ED PICC Line Care Additional Instructions / Restrictions: Wear shoulder immobilizer at all times Discharge Orders/Prescriptions Prescriptions: New vancomycin in dextrose 5 % 1 gram/200 mL Piggyback 1,000 mg IV Q24H 39 Days Qty: 3900 0RF Rx Instructions: stop date 10/25/24. Dx: shoulder PJI. weekly bmp, cbc, vanc trough, and esr. Fax to [phone]. Routine picc care per protocol. rifampin 300 mg Capsule 300 mg PO BID 39 Days Qty: 78 0RF loperamide 2 mg Capsule 2 mg PO Q2H PRN PRN (Reason: DIARRHEA) Qty: 0 0RF acetaminophen 500 mg Tablet 1,000 mg PO Q8 Qty: 1 0RF famotidine 20 mg Tablet 20 mg PO DAILY Qty: 0 0RF aspirin 81 mg Tablet,Chewable 81 mg PO BID Qty: 0 0RF oxycodone 5 mg Tablet 5 - 10 mg PO Q4H PRN PRN (Reason: Pain Score 4-10) 2 Days Qty: 10 0RF metoprolol tartrate 25 mg Tablet 25 mg PO BID Qty: 0 0RF sennosides-docusate sodium [Stimulant Laxative Plus] 8.6-50 mg Tablet 1 tab PO DAILY Qty: 0 0RF simethicone [Infants Simethicone] 40 mg/0.6 mL Drops,Suspension 80 mg PO TID PRN (Reason: Gas) Qty: 0 0RF Continued losartan 50 MG tablet 50 mg PO BID Patient Comments: BLOOD PRESSURE melatonin 5 MG tablet 10 mg PO QHS Patient Comments: SLEEP pramipexole [Mirapex] 0.5 MG tablet 1 mg PO QHS Patient Comments: RESTLESS LEGS indapamide 1.25 MG tablet 2.5 mg PO DAILY gabapentin 600 MG tablet 600 mg PO QHS bupropion HCl 300 MG tablet extended release 24 hr 150 mg PO DAILY mirtazapine 15 MG tablet 15 mg PO QHS pramipexole 0.5 mg tablet 0.5 mg PO DINNER amlodipine 10 mg tablet 5 mg PO BID duloxetine [Cymbalta] 30 mg capsule,delayed release(DR/EC) 30 mg PO DAILY Referrals / Follow Up: Hernando Grimes MD [Primary Care Provider] - Sixto Andrade MD [Med Staff - Active Staff] - See Referral Note (In 2 weeks- call for an appointment) Fahad Cavanaugh MD [Med Staff - Active Staff] - See Referral Note (In 2 weeks, call for an appointment) Disposition Disposition (needs filled in before D/C Order can be placed): [facility] 09/17/24 1727 Cosigner Signature (if applicable): CC: Dr. Hernando Grimes MD; Dr. Jamie Jiang DO; Dr. Emili Lee MD; Dr. Sixto Andrade MD ~ [facility]03-18-2025 Progress note [facility] Medical Records Department [address] [place] [address] Progress Note - Hospitalist 09/17/24 1709 MR#: [id number] Acct: [id number] Name: OSCAR WOO Rep #:[id number] : 1950 74 From: Jamie Jiang DO PCP: Dr. Hernando Grimes MD Status:ADM IN Location: [facility] [id number] Reason for Visit Reason for Visit: Diagnoses Depression, unspecified (09/14/24) Restless legs syndrome (09/14/24) Insomnia, unspecified (09/14/24) Polyneuropathy, unspecified (09/14/24) Essential (primary) hypertension (09/14/24) Infection and inflammatory reaction due to other internal joint prosthesis, initial encounter (09/14/24) Pain due to internal orthopedic prosthetic devices, implants and grafts, initialencounter (09/14/24) Encounter for other preprocedural examination (09/14/24) Presence of right artificial shoulder joint (09/14/24) Presence of left artificial shoulder joint (09/14/24) Subjective Subjective Patient was seen and examined today, there is a bed available for her in [facility] care tomorrow. Patient had some gas pains today but otherwise has been doing well. Objective Data Objective Data Vital Signs: Vital Signs Temp Pulse Resp BP Pulse Ox O2 Del Method O2 Flow Rate 98.5 F 87 16 154/71 H 96 Room Air 2 09/17/24 15:07 09/17/24 15:07 09/17/24 15:07 09/17/24 15:07 09/17/24 15:07 09/17/24 15:07 09/16/24 14:49 Oxygen Flow Rate (L/min) 2 Oxygen Delivery Method Room Air Weight: 105.4 kg Body Mass Index (BMI) 36.3 Intake & Output: Intake and Output for Last 24 Hours 09/15/24 09/16/24 09/17/24 23:59 23:59 23:59 Intake Total 1411.25 / 1411.25 2850 / 2850 1400 / 1400 Output Total 600 / 600 Balance 1411.25 / 1411.25 2850 / 2850 800 / 800 Lab / Micro Data 09/16/24 06:00 09/16/24 06:00 Micro: Microbiology 09/13/24 Unknown Tissue - Shoulder Gram Stain - Final 09/13/24 Unknown Tissue - Shoulder Wound Culture - Final Staphylococcus aureus 09/13/24 Unknown Tissue - Shoulder Anaerobic Culture - Final No anaerobic bacteria isolated. 09/13/24 Unknown Tissue - Shoulder Gram Stain - Final 09/13/24 Unknown Tissue - Shoulder Wound Culture - Final Staphylococcus aureus 09/13/24 Unknown Tissue - Shoulder Anaerobic Culture - Final No anaerobic bacteria isolated. 09/13/24 Unknown Tissue - Shoulder Gram Stain - Final 09/13/24 Unknown Tissue - Shoulder Wound Culture - Final Staphylococcus aureus 09/13/24 Unknown Tissue - Shoulder Anaerobic Culture - Final No anaerobic bacteria isolated. 09/17/24 08:30 Stool Clostridioides difficile (PCR) - Final 09/11/24 Unknown Fluid - Synovial (joint) Gram Stain - Final 09/11/24 Unknown Fluid - Synovial (joint) Body Fluid Culture - Final Meth. resistant Staph. aureus 09/11/24 Unknown Fluid - Synovial (joint) Anaerobic Culture - Final No anaerobic bacteria isolated. 09/15/24 11:10 Mucosa - Nasopharyngeal Coronavirus COVID-19 PCR - Final 09/15/24 11:10 Mucosa - Nasopharyngeal Respiratory Panel (PCR) - Final 09/13/24 14:35 Blood Culture (Wb) - Left Wrist Blood Culture - Preliminary No growth in 48 hours. 09/12/24 08:19 Swab (Method) Nasal Screen MRSA/MSSA - Final Physical Exam Narrative alert, oriented x3 and no apparent distress General Appearance: cooperative, well kempt and well developed Orientation / Consciousness: awake, oriented to person, oriented to place and oriented to time HEENT normocephalic, head/scalp atraumatic and moist oral mucous membranes Eyes PERRL, EOMs intact bilaterally and conjunctivae normal Neck supple, no JVD, thyroid normal and no carotid bruits General: trachea midline Resp normal respiratory effort, no retractions, no use of accessory muscles and clearto auscultation bilaterally Auscultation: Negative for rales, rhonchi or wheezes Cardio regular rate, regular rhythm, S1 normal heart sound, S2 normal heart sound, no murmurs, no rub and no gallops GI normal to inspection, nondistended, normoactive bowel sounds, soft to palpation,non-tender and non-distended Extremity Extremity Narrative: Patient's left shoulder is in a shoulder immobilizer Skin no rashes or lesions noted Neuro oriented x3, CN's II-XII intact bilaterally, no focal motor deficits and no sensory deficits noted Neuro Narrative: Patient's left shoulder is in a shoulder immobilizer at this time Sensorium / Orientation: awake and alert Speech: speech normal Psych affect normal Assessment & Plan Assessment/Plan (1) History of reverse total replacement of right shoulder joint: (2) Infection and inflammatory reaction due to other internal joint prosthesis, initial encounter: PLAN: Plan 1. Essential hypertension-patient's blood pressure was high today, I made the decision to add metoprolol to her present blood pressure medications. #2 chronic depression-patient is on BuSpar Cymbalta and Remeron #3 neuropathy-patient is currently on gabapentin #4 restless leg syndrome-patient is on Mirapex #5 postop day 4 irrigation debridement complete synovectomy revision left reverse total shoulder replacement revision-PT and OT will continue to work withthe patient, infectious diseases is directingantibiotic coverage #6 infection and inflammatory reaction with joint prosthesis left shoulder- organisms include MSSA and MRSA-patient will be treated with vancomycin and rifampin #7 chronic diarrhea-patient had diarrhea yesterday and a C. difficile test was sent which was negative. Patient has had a bowel resection in the past and intermittently does have diarrhea according to the patient. Total clinical time spent by myself addressing the patient's medical issues, reviewing all of her data, and collaborating with patient's care team: 35 minutes Charges/Coding Visit Charges Inpatient E&M: 52913 Subs Hosp L2 09/17/24 1713 Cosigner Signature (if applicable): CC: ~ Signed [facility]03-18-2025 Progress note Author Zhanna Ivy [facility] Note Date/Time September 17, 2024 1:0 2pm [facility] Medical Records Department [address] [place] [address] Progress Note - Orthopedic 09/17/24 1242 MR#: [id number] Acct: [id number] Name: OSCAR WOO Rep #:[id number] : 1950 74 From: Zhanna CASTILLO PCP: Dr. Hernando Grimes MD Status:ADM IN [id number] Subjective Subjective Patient appears to be comfortable in bedside chair. Patient states that she hasbeen working with physical therapy. Patient did state that yesterday she did have 1 episode of diarrhea but that is not abnormal for her. She has been seen by Dr. Finch who does not think that this diarrhea is related to C. difficile. Patient did ask for Imodium yesterday so C. difficile protocol is in place. Patient states that she has not yet had a bowel movement today. Patient states that her pain is well- controlled. Patient states that she is not sure where sheis going yet but she hopes that she is going to TCU. Patient denies any nausea or vomiting. Patient denies any dizziness or lightheadedness. Patient denies any new shortness of breath, chest pain, calf pain. Patient denies any fever, chills, signs of infection. Objective Data Objective Data Vital Signs: Vital Signs Temp Pulse Resp BP Pulse Ox O2 Del Method O2 Flow Rate 97.6 F L 100 20 H 185/99 H 95 Room Air 2 09/17/24 08:05 09/17/24 08:05 09/17/24 08:05 09/17/24 08:05 09/17/24 08:05 09/17/24 08:05 09/16/24 14:49 Oxygen Flow Rate (L/min) 2 Oxygen Delivery Method Room Air Weight: 105.4 kg Body Mass Index (BMI) 36.3 Intake & Output: Intake and Output for Last 24 Hours 09/15/24 09/16/24 09/17/24 23:59 23:59 23:59 Intake Total 1411.25 / 1411.25 2850 / 2850 200 / 200 Output Total 600 / 600 Balance 1411.25 / 1411.25 2850 / 2850 -400 / -400 Lab / Micro Data 09/16/24 06:00 09/16/24 06:00 Micro: Microbiology 09/13/24 Unknown Tissue - Shoulder Gram Stain - Final 09/13/24 Unknown Tissue - Shoulder Wound Culture - Final Staphylococcus aureus 09/13/24 Unknown Tissue - Shoulder Anaerobic Culture - Final No anaerobic bacteria isolated. 09/13/24 Unknown Tissue - Shoulder Gram Stain - Final 09/13/24 Unknown Tissue - Shoulder Wound Culture - Final Staphylococcus aureus 09/13/24 Unknown Tissue - Shoulder Anaerobic Culture - Final No anaerobic bacteria isolated. 09/13/24 Unknown Tissue - Shoulder Gram Stain - Final 09/13/24 Unknown Tissue - Shoulder Wound Culture - Final Staphylococcus aureus 09/13/24 Unknown Tissue - Shoulder Anaerobic Culture - Final No anaerobic bacteria isolated. 09/17/24 08:30 Stool Clostridioides difficile (PCR) - Final 09/11/24 Unknown Fluid - Synovial (joint) Gram Stain - Final 09/11/24 Unknown Fluid - Synovial (joint) Body Fluid Culture - Final Meth. resistant Staph. aureus 09/11/24 Unknown Fluid - Synovial (joint) Anaerobic Culture - Final No anaerobic bacteria isolated. 09/15/24 11:10 Mucosa - Nasopharyngeal Coronavirus COVID-19 PCR - Final 09/15/24 11:10 Mucosa - Nasopharyngeal Respiratory Panel (PCR) - Final 09/13/24 14:35 Blood Culture (Wb) - Left Wrist Blood Culture - Preliminary No growth in 48 hours. 09/12/24 08:19 Swab (Method) Nasal Screen MRSA/MSSA - Final Physical Exam Narrative Vital signs are stable and afebrile. Dressing is clean dry and intact. UltraSling has been appropriately fitted. Sensation intact to axillary, radial, median, ulnar distribution, Motor intact with patient able to make okay sign, cross fingers, thumbs up. ELEAZAR hose in place bilaterally. SCDs in place bilaterally. Const alert, oriented x3 and no apparent distress Assessment & Plan Assessment/Plan (1) Infection and inflammatory reaction due to other internal joint prosthesis, initial encounter: PLAN: Postop day 4 irrigation debridement, synovectomy and revision left shoulder replacement interchangeable parts 1. Pain control: Patient will be taking Tylenol and oxycodone for pain control. Patient will be taking oxycodone as needed. An OARRS was reviewed by myself today. The risk of abuse potential was discussed and reviewed. Patient was advised not to drive motor vehicle or operate heavy equipment while taking narcotic pain medication. 2. DVT prophylaxis: Aspirin 81 mg p.o. twice daily for 4 weeks postoperatively as well as ELEAZAR hose until 2 weeks postoperatively. 3. Physical therapy: PT OT work on ADLs and gentle range of motion exercises. Patient was educated on the reverse total shoulder protocol and educated to continue following. 4. Infectious disease: Infectious disease was able to see and evaluate the patient today. Have recommended vancomycin IV for 6 weeks. Patient will also be doing p.o. rifampin for 6 weeks. Patient does have a PICC line in place at this time. This will be stopped on 10/25/2024. 5. Hb/Hct: 11.0/35.3 from 09/16/2024. Currently asymptomatic and improving postoperatively. Vital signs are stable. Likely related to blood loss during surgery. 6. Medical management: Patient current chronic diseases are being managed by medicine. Appreciate recommendations from medicine for safe and proper discharge planning. 7. Hypoxia: Patient's hypoxia has seemed to resolved with patient now being 95%on room air. 8. Constipation: Patient did have an episode of diarrhea yesterday which she asked for Imodium for patient did have an episode of diarrhea yesterday which she asked for Imodium for and now patient is being followed by C. difficile guidelines. Dr. Joshua did not believe that this is related to C. difficile at this time. 9. Incentive spirometry: Patient was encouraged to do the incentive spirometer every hour that she is awake for the first week. 10. Patient is okay for discharge as long as remains medically stable, continues to work with physical therapy, and pain maintains adequately controlled. 11. Appreciate recommendations from both case management and medicine services for safe and proper discharge. Disposition: PICC line in place. Plan for 6 weeks IV vancomycin as well as 6 weeks of p.o. rifampin. Initial plans were for discharge home however, patient doing poorly with physical therapy and unable to manage IV antibiotics at home. We are still waiting on pre-CERT for potential patient placement. Appreciate recommendations from medicine and case management for safe discharge planning. Patient will follow-up per postoperative instructions. Reverse total shoulder protocol was reviewed with patient today. Patient has a 2-week follow-up [facility]. Patient will begin outpatient physical therapy following her 2-week visit at our office. Patient was encouraged to call with any questions, concerns, new problems. (2) History of reverse total replacement of right shoulder joint: 09/17/24 1300 <Electronically signed by Zhanna CASTILLO> Cosigner Signature (if applicable): CC: ~ Signed ADDENDUM by ANNA Hinson on 09/17/24 at 1302 Addendum C. difficile was sent by Dr. Andrade. 09/17/24 1301<Electronically signed by Zhanna CASTILLO> Cosigner Signature (if applicable): cc: ~* Signed [facility] Work Phone: [phone]) 233-440403-18-2025 Progress note [facility] Medical Records Department [address] [place] [address] Progress Note - Orthopedic 09/17/24 1242 MR#: [id number] Acct: [id number] Name: OSCAR WOO Rep #:[id number] : 1950 74 From: Zhanna CASTILLO PCP: Dr. Hernando Grimes MD Status:ADM IN Location: [facility] NN055-4 Subjective Subjective Patient appears to be comfortable in bedside chair. Patient states that she hasbeen working with physical therapy. Patient did state that yesterday she did have 1 episode of diarrhea but that is not abnormal for her. She has been seen by Dr. Finch who does not think that this diarrhea is related to C. difficile. Patient did ask for Imodium yesterday so C. difficile protocol is in place. Patient states that she has not yet had a bowel movement today. Patient states that her pain is well-controlled. Patient states that she is not sure where sheis going yet but she hopes that she is going to TCU. Patient denies any nausea or vomiting. Patient denies any dizziness or lightheadedness. Patient de nies any new shortness of breath, chest pain, calf pain. Patient denies any fever, chills, signs ofinfection. Objective Data Objective Data Vital Signs: Vital Signs Temp Pulse Resp BP Pulse Ox O2 Del Method O2 Flow Rate 97.6 F L 100 20 H 185/99 H 95 Room Air 2 09/17/24 08:05 09/17/24 08:05 09/17/24 08:05 09/17/24 08:05 09/17/24 08:05 09/17/24 08:05 09/16/24 14:49 Oxygen Flow Rate (L/min) 2 Oxygen Delivery Method Room Air Weight: 105.4 kg Body Mass Index (BMI) 36.3 Intake & Output: Intake and Output for Last 24 Hours 09/15/24 09/16/24 09/17/24 23:59 23:59 23:59 Intake Total 1411.25 / 1411.25 2850 / 2850 200 / 200 Output Total 600 / 600 Balance 1411.25 / 1411.25 2850 / 2850 -400 / -400 Lab / Micro Data 09/16/24 06:00 09/16/24 06:00 Micro: Microbiology 09/13/24 Unknown Tissue - Shoulder Gram Stain - Final 09/13/24 Unknown Tissue - Shoulder Wound Culture - Final Staphylococcus aureus 09/13/24 Unknown Tissue - Shoulder Anaerobic Culture - Final No anaerobic bacteria isolated. 09/13/24 Unknown Tissue - Shoulder Gram Stain - Final 09/13/24 Unknown Tissue - Shoulder Wound Culture - Final Staphylococcus aureus 09/13/24 Unknown Tissue - Shoulder Anaerobic Culture - Final No anaerobic bacteria isolated. 09/13/24 Unknown Tissue - Shoulder Gram Stain - Final 09/13/24 Unknown Tissue - Shoulder Wound Culture - Final Staphylococcus aureus 09/13/24 Unknown Tissue - Shoulder Anaerobic Culture - Final No anaerobic bacteria isolated. 09/17/24 08:30 Stool Clostridioides difficile (PCR) - Final 09/11/24 Unknown Fluid - Synovial (joint) Gram Stain - Final 09/11/24 Unknown Fluid - Synovial (joint) Body Fluid Culture - Final Meth. resistant Staph. aureus 09/11/24 Unknown Fluid - Synovial (joint) Anaerobic Culture - Final No anaerobic bacteria isolated. 09/15/24 11:10 Mucosa - Nasopharyngeal Coronavirus COVID-19 PCR - Final 09/15/24 11:10 Mucosa - Nasopharyngeal Respiratory Panel (PCR) - Final 09/13/24 14:35 Blood Culture (Wb) - Left Wrist Blood Culture - Preliminary No growth in 48 hours. 09/12/24 08:19 Swab (Method) Nasal Screen MRSA/MSSA - Final Physical Exam Narrative Vital signs are stable and afebrile. Dressing is clean dry and intact. UltraSling has been appropriately fitted. Sensation intact to axillary, radial, median, ulnar distribution, Motor intact with patient able to make okay sign, cross fingers, thumbs up. ELEAZAR hose in place bilaterally. SCDs in place bilaterally. Const alert, oriented x3 and no apparent distress Assessment & Plan Assessment/Plan (1) Infection and inflammatory reaction due to other internal joint prosthesis, initial encounter: PLAN: Postop day 4 irrigation debridement, synovectomy and revision left shoulder replacement interchangeable parts 1. Pain control: Patient will be taking Tylenol and oxycodone for pain control. Patient will be taking oxycodone as needed. An OARRS was reviewed by myself today. The risk of abuse potential was discussed and reviewed. Patient was advised not to drive motor vehicle or operate heavy equipment while taking narcotic pain medication. 2. DVT prophylaxis: Aspirin 81 mg p.o. twice daily for 4 weeks postoperatively as well as ELEAZAR hose until 2 weeks postoperatively. 3. Physical therapy: PT OT work on ADLs and gentle range of motion exercises. Patient was educated on the reverse total shoulder protocol and educated to continue following. 4. Infectious disease: Infectious disease was able to see and evaluate the patient today. Have recommended vancomycin IV for 6 weeks. Patient will also be doing p.o. rifampin for 6 weeks. Patient does have a PICC line in place at this time. This will be stopped on 10/25/2024. 5. Hb/Hct: 11.0/35.3 from 09/16/2024. Currently asymptomatic and improving postoperatively. Vital signs are stable. Likely related to blood loss during surgery. 6. Medical management: Patient current chronic diseases are being managed by medicine. Appreciate recommendations from medicine for safe and proper discharge planning. 7. Hypoxia: Patient's hypoxia has seemed to resolved with patient now being 95%on room air. 8. Constipation: Patient did have an episode of diarrhea yesterday which she asked for Imodium for patient did have an episode of diarrhea yesterday which she asked for Imodium for and now patient isbeing followed by C. difficile guidelines. Dr. Joshua did not believe that this is related to C. difficile at this time. 9. Incentive spirometry: Patient was encouraged to do the incentive spirometer every hour that she is awake for the first week. 10. Patient is okay for discharge as long as remains medically stable, continues to work with physical therapy, and pain maintains adequately controlled. 11. Appreciate recommendations from both case management and medicine services for safe and proper discharge. Disposition: PICC line in place. Plan for 6 weeks IV vancomycin as well as 6 weeks of p.o. rifampin. Initial plans were for discharge home however, patient doing poorly with physical therapy and unable to manage IV antibiotics at home. We are still waiting on pre-CERT for potential patient placement. Appreciate recommendations from medicine and case management for safe discharge planning. Patientwill follow-up per postoperative instructions. Reverse total shoulder protocol was reviewed with patient today. Patient has a 2-week follow[facility]up [facility]. Patient will begin outpatient physical therapy following her 2-week visit at our office. Patient was encouraged to call with any questions, con cerns, new problems. (2) History of reverse total replacement of right shoulder joint: 09/17/24 1300 Cosigner Signature (if applicable): CC: ~ Signed ADDENDUM by ANNA Hinson on 09/17/24 at 1302 Addendum C. difficile was sent by Dr. Andrade. 09/17/24 1301 Cosigner Signature (if applicable): cc: ~* Signed [facility]03-18-2025 Progress note Author Sixto Andrade [facility] Note Date/Time September 17, 2024 10: 04am [facility] Medical Records Department [address] [place] [address] Progress Note - Infect Disease 09/17/24 1003 MR#: [id number] Acct: [id number] Name: VIRIDIANA WOOISIDORO Dowling Rep #:[id number] : 1950 74 From: Sixto calhoun MD PCP: Dr. Hernando Grimes MD Status:ADM IN Location: [facility] [id number] Physical Exam Narrative Feeling ok. One episode of diarrhea last night, one this AM. No fever, no abd pain, no blood in stool. H/o partial bowel resection so loose stool is common for her. 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 Taken to OR 09/13/[address] Cavanaugh for revision; surg cx x2 with MSSA. On vanc, will continue. Picc in place. Plan is for iv vanc and po rifampin for 6 weeks with stop date 10/25/24 with weekly labs. After that, will need long course suppressive po abx. Counseled her that her home meds may be less effective while on rifampin. Also risk of liver dysfunction and reviewed potential signs. ID followup in 2 weeks. Some diarrhea chronically, cdiff sent. Will follow, d/w adult protective caseworker 09/17/24 1004 <Electronically signed by Sixto Andrade MD> Cosigner Signature (if applicable): CC: ~ Signed [facility] Work Phone: 1(435) 426-512003-18-2025 Progress note [facility] Medical Records Department [address] [place] [address] Progress Note - Infect Disease 09/17/24 1003 MR#: [id number] Acct: [id number] Name: OSCAR WOO Rep #:[id number] : 1950 74 From: Sixto calhoun MD PCP: Dr. Hernando Grimes MD Status:ADM IN Location: [facility] [id number] Physical Exam Narrative Feeling ok. One episode of diarrhea last night, one this AM. No fever, no abd pain, no blood in stool. H/o partial bowel resection so loose stool is common for her. 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 Taken to OR 09/13/[address] Cavanaugh for revision; surg cx x2 with MSSA. On vanc, will continue. Picc in place. Plan is for iv vanc and po rifampin for 6 weeks with stop date 10/25/24 with weekly labs. After that, will need long course suppressive po abx. Counseled her that her home meds may be less effective while on rifampin. Also risk of liver dysfunction and reviewed potential signs. ID followup in 2 weeks. Some diarrhea chronically, cdiff sent. Will follow, d/w adult protective caseworker 09/17/24 1004 Cosigner Signature (if applicable): CC: ~ Signed [facility]03-17-2025 Progress note Author [facility] [facility] Note Date/Time September 16, 2024 9:5 7pm [facility] Medical Records Department [address] [place] [address] Progress Note - Hospitalist 09/16/242156 MR#: [id number] Acct: [id number] Name: OSCAR WOO Rep #:[id number] : 1950 74 From: Claire Mayorga MD PCP: Dr. Hernando Grimes MD Status:ADM IN Location: [place] [address] Hospitalist Note Patient with onset diarrhea, several episodes per staff. On abx therapy for several days with ID following. Suspect likely abx related but to be cautious will obtain cdiff and if negative will have loperamide PRN. 09/16/242156 <Electronically signed by Claire Mayorga MD> Cosigner Signature (if applicable): CC: ~ Signed [facility] Work Phone: 1(516) 440-612903-17-2025 Progress note [facility] Medical Records Department [address] [place] [address] Progress Note - Hospitalist 09/16/242156 MR#: [id number] Acct: [id number] Name: OSCAR WOO Rep #:[id number] : 1950 74 From: Claire Mayorga MD PCP: Dr. Hernando Grimes MD Status:ADM IN Location: [place] [address] Hospitalist Note Patient with onset diarrhea, several episodes per staff. On abx therapy for several days with ID following. Suspect likely abx related but to be cautious will obtain cdiff and if negative will have loperamide PRN. 09/16/242156 Cosigner Signature (if applicable): CC: ~ Signed [facility]03-17-2025 Progress note Author [facility] Note Date/Time September 16, 2024 4:1 1pm [facility] Medical Records Department [address] [place] [address] Progress Note - Hospitalist 09/16/24 1603 MR#: [id number] Acct: [id number] Name: OSCAR WOO Rep #:[id number] : 1950 74 From: Jamie Jiang DO PCP: Dr. Hernando Grimes MD Status:ADM IN Location: [place] [address] Reason for Visit Reason for Visit: Diagnoses Depression, unspecified (09/14/24) Restless legs syndrome (09/14/24) Insomnia, unspecified (09/14/24) Polyneuropathy, unspecified (09/14/24) Essential (primary) hypertension (09/14/24) Infection and inflammatory reaction due to other internal joint prosthesis, initial encounter (09/14/24) Pain due to internal orthopedic prosthetic devices, implants and grafts, initialencounter (09/14/24) Encounter for other preprocedural examination (09/14/24) Presence of right artificial shoulder joint (09/14/24) Presence of left artificial shoulder joint (09/14/24) Subjective Subjective Patient was seen and examined today, she does not feel that she can go home by herself due to her left shoulder surgery, I talked with discharge planning abouther care and the plan is either for her to go to a rehab facility or correction facility. Objective Data Objective Data Vital Signs: Vital Signs Temp Pulse Resp BP Pulse Ox O2 Del Method O2 Flow Rate 98.9 F 98 18 146/95 H 92 Room Air 2 09/16/24 14:00 09/16/24 14:00 09/16/24 14:00 09/16/24 14:00 09/16/24 15:08 09/16/24 15:08 09/16/24 14:49 Oxygen Flow Rate (L/min) 2 Oxygen Delivery Method Room Air Weight: 105.4 kg Body Mass Index (BMI) 36.3 Intake & Output: Intake and Output for Last 24 Hours 09/14/24 09/15/24 09/16/24 23:59 23:59 23:59 Intake Total 3834.17 / 3834.17 1411.25 / 1411.25 2100 / 2100 Balance 3834.17 / 3834.17 1411.25 / 1411.25 2100 / 2100 Lab / Micro Data 09/16/24 06:00 09/16/24 06:00 Labs: Laboratory Results - last 24 hr 09/16/24 06:00: WBC 9.2, RBC 3.69 L, Hgb 11.0 L, Hct 35.3 L, MCV 95.7, MCH 29.8,MCHC 31.2 L, RDW Std Deviation 50.0 H, RDW Coeff of Terry 14.3, Plt Count 261, MPV9.4, Immature Gran % (Auto) 0.900, Neut % (Auto) 76.9 H, Lymph % (Auto) 11.6 L, [place] % (Auto) 7.0, Eos % (Auto) 3.2, Baso % (Auto) 0.4, Absolute Neuts (auto) 7.1, Absolute Lymphs (auto) 1.07, Nucleated RBC % 0, Sodium 140, Potassium 4.8, Chloride 101, Carbon Dioxide 32.4 H, Anion Gap 7, BUN 24 H, Creatinine 0.93, Estim Creat Clear Calc 65.28, Est GFR (MDRD) Non-Af 64, BUN/Creatinine Ratio 25.4 H, Glucose 108 H, Calcium 8.9, Random Vancomycin 14.4 Micro: Microbiology 09/13/24 Unknown Tissue - Shoulder Gram Stain - Final 09/13/24 Unknown Tissue - Shoulder Wound Culture - Final Staphylococcus aureus 09/13/24 Unknown Tissue - Shoulder Anaerobic Culture - Preliminary Checking for anaerobes, further studies to follow. 09/13/24 Unknown Tissue - Shoulder Gram Stain - Final 09/13/24 Unknown Tissue - Shoulder Wound Culture - Final Staphylococcus aureus 09/13/24 Unknown Tissue - Shoulder Anaerobic Culture - Preliminary Checking for anaerobes, further studies to follow. 09/13/24 Unknown Tissue - Shoulder Gram Stain - Final 09/13/24 Unknown Tissue - Shoulder Wound Culture - Final Staphylococcus aureus 09/13/24 Unknown Tissue - Shoulder Anaerobic Culture - Preliminary Checking for anaerobes, further studies to follow. 09/11/24 Unknown Fluid - Synovial (joint) Gram Stain - Final 09/11/24 Unknown Fluid - Synovial (joint) Body Fluid Culture - Final Meth. resistant Staph. aureus 09/11/24 Unknown Fluid - Synovial (joint) Anaerobic Culture - Preliminary Checking for anaerobes, further studies to follow. 09/15/24 11:10 Mucosa - Nasopharyngeal Coronavirus COVID-19 PCR - Final 09/15/24 11:10 Mucosa - Nasopharyngeal Respiratory Panel (PCR) - Final 09/13/24 14:35 Blood Culture (Wb) - Left Wrist Blood Culture - Preliminary No growth in 48 hours. 09/12/24 08:19 Swab (Method) Nasal Screen MRSA/MSSA - Final Physical Exam Const alert, oriented x3 and no apparent distress General Appearance: cooperative, well kempt and well developed Orientation / Consciousness: awake, oriented to person, oriented to place and oriented to time HEENT normocephalic, head/scalp atraumatic and moist oral mucous membranes Eyes PERRL, EOMs intact bilaterally and conjunctivae normal Neck supple, no JVD, thyroid normal and no carotid bruits General: trachea midline Resp normal respiratory effort, no retractions, no use of accessory muscles and clearto auscultation bilaterally Auscultation: Negative for rales, rhonchi or wheezes Cardio regular rate, regular rhythm, S1 normal heart sound, S2 normal heart sound, no murmurs, no rub and no gallops GI normal to inspection, nondistended, normoactive bowel sounds, soft to palpation,non-tender and non-distended Extremity Extremity Narrative: Patient's left shoulder is in a shoulder immobilizer Skin no rashes or lesions noted Neuro oriented x3, CN's II-XII intact bilaterally, no focal motor deficits and no sensory deficits noted Neuro Narrative: Patient's left shoulder is in a shoulder immobilizer at this time Sensorium / Orientation: awake and alert Speech: speech normal Psych affect normal Assessment & Plan Assessment/Plan (1) Infection and inflammatory reaction due to other internal joint prosthesis, initial encounter: PLAN: Plan 1. Essential hypertension-patient will remain on her current medications they will be adjusted as necessary #2 chronic depression-patient is on BuSpar Cymbalta and Remeron #3 neuropathy-patient is currently on gabapentin #4 restless leg syndrome-patient is on Mirapex #5 postop day 3 irrigation debridement complete synovectomy revision left reverse total shoulder replacement revision-PT and OT will continue to work withthe patient, infectious diseases is directing antibiotic coverage #6 infection and inflammatory reaction with joint prosthesis left shoulder- organisms include MSSA and MRSA-patient will be treated with vancomycin and rifampin Total clinical time spent by myself addressing the patient's medical issues, reviewing all of her data, and collaborating with patient's care team: 35 minutes Charges/Coding Visit Charges Inpatient E&M: 00693 Subs Hosp L2 09/16/24 1611 <Electronically signed by Jamie Jiang DO> Cosigner Signature (if applicable): CC: ~ Signed [facility] Work Phone: 1(252) 399-561303-17-2025 Consult note Author Sixto [facility] Note Date/Time September 16, 2024 2:5 1pm [facility] Medical Records Department [address] [place] [address] Consultation - Infectious Dx 09/16/24 1444 MR#: [id number] Acct: [id number] Name: OSCAR WOO Rep #:[id number] : 1950 74 From: Sixto calhoun MD PCP: Dr. Hernando Grimes MD Status:ADM IN Location: [id number] Assessment & Plan Assessment/Plan (1) Infection and inflammatory reaction due to other internal joint prosthesis, initial encounter: PLAN: Aspiration cx with MRSA. Taken to OR 09/13/[address] Cavanaugh for revision; surg cx x2 with MSSA. On vanc, will continue. Picc in place. Plan is for iv vanc and po rifampin for 6 weeks with stop date 10/25/24 with weekly labs. Afterthat, will need long course suppressive po abx. Counseled her that her home meds may be less effective while on rifampin. Also risk of liver dysfunction and reviewed potential signs. ID followup in 2 weeks. Will follow, thank you, wrote rx, d/w Dr. Cavanaugh on 09/13/24, d/w adult protective caseworker this AM HPI Consult Data Date of Consult: 09/16/24 HPI Narrative Reason for Consultation: PJI HPI Narrative: OSCAR WOO, is a 74 F who had L shoulder replacement about 7 years ago. Presented with one week new pain to L shoulder. No known inciting event. No fever or chills. No redness, swelling, or drainage. Pain was moderate, worse with movement. Had aspiration done as outpt, then admitted and taken to surgery09/13/[address] Cavanaugh for revision. She is R handed. No n/v/d. Full ROS performed and neg except as noted above. [facility] Medical History MRSA (methicillin resistant staph aureus) culture positive Wears glasses Post-menopausal Depression Anxiety Walker as ambulation aid Ambulates with cane Arthritis High cholesterol Back pain Restless legs Former smoker Shortness of breath on exertion History of pain when walking History of edema Hypertension Home Medications ?Medication ?Instructions ?Recorded ?Last Taken ?Type losartan 50 mg tablet 50 mg PO BID BP 09/19/14 History melatonin 5 mg tablet 10 mg PO QHS INSOMNIA Unknown History indapamide 1.25 mg tablet 2.5 mg PO DAILY BP 04/12/17 Unknown History pramipexole 0.5 mg tablet (Mirapex) 1 mg PO QHS RLS Unknown History bupropion HCl 300 mg 24 hr tablet, 150 mg PO DAILY DEP RESSION 06/11/20 09/13/24 History extended release gabapentin 600 mg tablet 600 mg PO QHS SLEEP 06/11/20 Unknown History mirtazapine 15 mg tablet 15 mg PO QHS INSOMNIA 06/23/20 20:00 History amlodipine 10 mg tablet 5 mg PO BID BP 09/11/2408/31 History duloxetine 30 mg capsule,delayed 30 mg PO DAILY DEPRES RAHEEM 09/11/24 09/13/24 History release (Cymbalta) pramipexole 0.5 mg tablet 0.5 mg PO DINNER RLS 5 Unknown History rifampin 300 mg capsule 300 mg PO BID 39 days #78 ca ps 09/16/24 Unknown Rx vancomycin 1 gram/200 mL in 1,000 mg IV Q24H 39 days # 3,900 mL 09/16/24 Unknown Rx dextrose 5 % intravenous piggyback Allergy/AdvReac Type Severity Reaction Status Date / Time Penicillins Allergy Anaphylaxis Verified 09/13/24 12:05 Surgical History History of surgery Hx of colonoscopy Hx of right cataract extraction Hx of left cataract extraction History of partial colectomy Hx of appendectomy Hx of total hip arthroplasty Hx of total shoulder replacement Hx of lumbar discectomy Hx of total shoulder replacement Hx of total hip arthroplasty Social History Smoking Status: Former smoker Physical Exam Const alert, oriented x3 and no apparent distress General Appearance: cooperative HEENT normocephalic and head/scalp atraumatic Eyes PERRL and EOMs intact bilaterally Neck supple and No nodes Resp normal air movement and clear to auscultation bilaterally Cardio regular rate and regular rhythm GI soft to palpation, non-tender and non-distended Extremity General Extremity: Negative for edema Skin no rashes or lesions noted Skin Narrative: Picc in RUE, LUE in sling Neuro CN's II-XII intact bilaterally Lab / Micro Data Attestation: I reviewed the patient's lab results. 09/16/24 06:00 09/16/24 06:00 Labs: Laboratory Results - last 24 hr 09/16/24 06:00: WBC 9.2, RBC 3.69 L, Hgb 11.0 L, Hct 35.3 L, MCV 95.7, MCH 29.8,MCHC 31.2 L, RDW Std Deviation 50.0 H, RDW Coeff of Terry 14.3, Plt Count 261, MPV9.4, Immature Gran % (Auto) 0.900, Neut % (Auto) 76.9 H, Lymph % (Auto) 11.6 L, [place] % (Auto) 7.0, Eos % (Auto) 3.2, Baso % (Auto) 0.4, Absolute Neuts (auto) 7.1, Absolute Lymphs (auto) 1.07, Nucleated RBC % 0, Sodium 140, Potassium 4.8, Chloride 101, Carbon Dioxide 32.4 H, Anion Gap 7, BUN 24 H, Creatinine 0.93, Estim Creat Clear Calc 65.28, Est GFR (MDRD) Non-Af 64, BUN/Creatinine Ratio 25.4 H, Glucose 108 H, Calcium 8.9, Random Vancomycin 14.4 Micro: Microbiology 09/13/24 Unknown Tissue - Shoulder Gram Stain - Final 09/13/24 Unknown Tissue - Shoulder Wound Culture - Final Staphylococcus aureus 09/13/24 Unknown Tissue - Shoulder Anaerobic Culture - Preliminary Checking for anaerobes, further studies to follow. 09/13/24 Unknown Tissue - Shoulder Gram Stain - Final 09/13/24 Unknown Tissue - Shoulder Wound Culture - Final Staphylococcus aureus 09/13/24 Unknown Tissue - Shoulder Anaerobic Culture - Preliminary Checking for anaerobes, further studies to follow. 09/13/24 Unknown Tissue - Shoulder Gram Stain - Final 09/13/24 Unknown Tissue - Shoulder Wound Culture - Final Staphylococcus aureus 09/13/24 Unknown Tissue - Shoulder Anaerobic Culture - Preliminary Checking for anaerobes, further studies to follow. 09/11/24 Unknown Fluid - Synovial (joint) Gram Stain - Final 09/11/24 Unknown Fluid - Synovial (joint) Body Fluid Culture - Final Meth. resistant Staph. aureus 09/11/24 Unknown Fluid - Synovial (joint) Anaerobic Culture - Preliminary Checking for anaerobes, further studies to follow. 09/15/24 11:10 Mucosa - Nasopharyngeal Coronavirus COVID-19 PCR - Final 09/15/24 11:10 Mucosa - Nasopharyngeal Respiratory Panel (PCR) - Final 09/13/24 14:35 Blood Culture (Wb) - Left Wrist Blood Culture - Preliminary No growth in 48 hours. 09/16/24 5261 <Electronically signed by Sixto Andrade MD> Cosigner Signature (if applicable): CC: Dr. Hernando Grimes MD; Dr. Fahad Cavanaugh MD~ Signed [facility] Work Phone: 1(156) 935-908703-17-2025 Progress note [facility] Medical Records Department [address] [place] [address] Progress Note - Hospitalist 09/16/24 1603 MR#: [id number] Acct: [id number] Name: OSCAR WOO Rep #:[id number] : 1950 74 From: Jamie Jiang DO PCP: Dr. Hernando Grimes MD Status:ADM IN Location: [place] [id number] Reason for Visit Reason for Visit: Diagnoses Depression, unspecified (09/14/24) Restless legs syndrome (09/14/24) Insomnia, unspecified (09/14/24) Polyneuropathy, unspecified (09/14/24) Essential (primary) hypertension (09/14/24) Infection and inflammatory reaction due to other internal joint prosthesis, initial encounter (09/14/24) Pain due to internal orthopedic prosthetic devices, implants and grafts, initialencounter (09/14/24) Encounter for other preprocedural examination (09/14/24) Presence of right artificial shoulder joint (09/14/24) Presence of left artificial shoulder joint (09/14/24) Subjective Subjective Patient was seen and examined today, she does not feel that she can go home by herself due to her left shoulder surgery, I talked with discharge planning abouther care and the plan is either for her to go to a rehab facility or correction facility. Objective Data Objective Data Vital Signs: Vital Signs Temp Pulse Resp BP Pulse Ox O2 Del Method O2 Flow Rate 98.9 F 98 18 146/95 H 92 Room Air 2 09/16/24 14:00 09/16/24 14:00 09/16/24 14:00 09/16/24 14:00 09/16/24 15:08 09/16/24 15:08 09/16/24 14:49 Oxygen Flow Rate (L/min) 2 Oxygen Delivery Method Room Air Weight: 105.4 kg Body Mass Index (BMI) 36.3 Intake & Output: Intake and Output for Last 24 Hours 09/14/24 09/15/24 09/16/24 23:59 23:59 23:59 Intake Total 3834.17 / 3834.17 1411.25 / 1411.25 2100 / 2100 Balance 3834.17 / 3834.17 1411. / 1411.25 2100 / 2100 Lab / Micro Data 09/16/24 06:00 09/16/24 06:00 Labs: Laboratory Results - last 24 hr 09/16/24 06:00: WBC 9.2, RBC 3.69 L, Hgb 11.0 L, Hct 35.3 L, MCV 95.7, MCH 29.8,MCHC 31.2 L, RDW Std Deviation 50.0 H, RDW Coeff of Terry 14.3, Plt Count 261, MPV9.4, Immature Gran % (Auto) 0.900, Neut% (Auto) 76.9 H, Lymph % (Auto) 11.6 L, [place] % (Auto) 7.0, Eos % (Auto) 3.2, Baso % (Auto) 0.4, Absolute Neuts (auto) 7.1, Absolute Lymphs (auto) 1.07, Nucleated RBC % 0, Sodium 140, Potassium 4.8, Chloride 101, Carbon Dioxide 32.4 H, Anion Gap 7, BUN 24 H, Creatinine 0.93, Estim Creat Clear Calc 65.28, Est GFR (MDRD) Non-Af 64, BUN/Creatinine Ratio 25.4 H, Glucose 108 H, Calcium 8.9, Random Vancomycin 14.4 Micro: Microbiology 09/13/24 Unknown Tissue - Shoulder Gram Stain - Final 09/13/24 Unknown Tissue - Shoulder Wound Culture - Final Staphylococcus aureus 09/13/24 Unknown Tissue - Shoulder Anaerobic Culture - Preliminary Checking for anaerobes, further studies to follow. 09/13/24 Unknown Tissue - Shoulder Gram Stain - Final 09/13/24 Unknown Tissue - Shoulder Wound Culture - Final Staphylococcus aureus 09/13/24 Unknown Tissue - Shoulder Anaerobic Culture - Preliminary Checking for anaerobes, further studies to follow. 09/13/24 Unknown Tissue - Shoulder Gram Stain - Final 09/13/24 Unknown Tissue - Shoulder Wound Culture - Final Staphylococcus aureus 09/13/24 Unknown Tissue - Shoulder Anaerobic Culture - Preliminary Checking for anaerobes, further studies to follow. 09/11/24 Unknown Fluid - Synovial (joint) Gram Stain - Final 09/11/24 Unknown Fluid - Synovial (joint) Body Fluid Culture - Final Meth. resistant Staph. aureus 09/11/24 Unknown Fluid - Synovial (joint) Anaerobic Culture - Preliminary Checking for anaerobes, further studies to follow. 09/15/24 11:10 Mucosa - Nasopharyngeal Coronavirus COVID-19 PCR - Final 09/15/24 11:10 Mucosa - Nasopharyngeal Respiratory Panel (PCR) - Final 09/13/24 14:35 Blood Culture (Wb) - Left Wrist Blood Culture - Preliminary No growth in 48 hours. 09/12/24 08:19 Swab (Method) Nasal Screen MRSA/MSSA - Final Physical Exam Const alert, oriented x3 and no apparent distress General Appearance: cooperative, well kempt and well developed Orientation / Consciousness: awake, oriented to person, oriented to place and oriented to time HEENT normocephalic, head/scalp atraumatic and moist oral mucous membranes Eyes PERRL, EOMs intact bilaterally and conjunctivae normal Neck supple, no JVD, thyroid normal and no carotid bruits General: trachea midline Resp normal respiratory effort, no retractions, no use of accessory muscles and clearto auscultation bilaterally Auscultation: Negative for rales, rhonchi or wheezes Cardio regular rate, regular rhythm, S1 normal heart sound, S2 normal heart sound, no murmurs, no rub and no gallops GI normal to inspection, nondistended, normoactive bowel sounds, soft to palpation,non-tender and non-distended Extremity Extremity Narrative: Patient's left shoulder is in a shoulder immobilizer Skin no rashes or lesions noted Neuro oriented x3, CN's II-XII intact bilaterally, no focal motor deficits and no sensory deficits noted Neuro Narrative: Patient's left shoulder is in a shoulder immobilizer at this time Sensorium / Orientation: awake and alert Speech: speech normal Psych affect normal Assessment & Plan Assessment/Plan (1) Infection and inflammatory reaction due to other internal joint prosthesis, initial encounter: PLAN: Plan 1. Essential hypertension-patient will remain on her current medications they will be adjusted as necessary #2 chronic depression-patient is on BuSpar Cymbalta and Remeron #3 neuropathy-patient is currently on gabapentin #4 restless leg syndrome-patient is on Mirapex #5 postop day 3 irrigation debridement complete synovectomy revision left reverse total shoulder replacement revision-PT and OT will continue to work withthe patient, infectious diseases is directingantibiotic coverage #6 infection and inflammatory reaction with joint prosthesis left shoulder- organisms include MSSA and MRSA-patient will be treated with vancomycin and rifampin Total clinical time spent by myself addressing the patient's medical issues, reviewing all of her data, and collaborating with patient's care team: 35 minutes Charges/Coding Visit Charges Inpatient E&M: 59565 Subs Hosp L2 09/16/24 1611 Cosigner Signature (if applicable): CC: ~ Signed [facility]03-17-2025 Progress note Author Fahad Cavanaugh [facility] Note Date/Time September 16, 2024 2:0 5pm [facility] Medical Records Department [address] [place] [address] Progress Note - Orthopedic 09/16/24 1357 MR#: [id number] Acct: [id number] Name: OSCAR WOO Rep #:[id number] : 1950 74 From: Fahad Chi PCP: Dr. Hernando Grimes MD Status:ADM IN Location: [place] [address] Subjective Subjective Patient doing well. Denies any chest pain or calf pain. No new shortness of breath. Remains on 2 L of oxygen. Infectious ease was able to the patient thismorning and placed patient on vancomycin IV for 6 weeks. PICC line is in place. Discharge planning has commenced. Patient will likely require correction upon discharge to help administer IV antibiotics participate in therapy. Objective Data Objective Data Vital Signs: Vital Signs Temp Pulse Resp BP Pulse Ox O2 Del Method O2 Flow Rate 98.3 F 94 16 133/94 H 94 Nasal Cannula 2 09/16/24 07:44 09/16/24 07:44 09/16/24 07:44 09/16/24 07:44 09/16/24 10:43 09/16/24 10:43 09/16/24 10:43 Oxygen Flow Rate (L/min) 2 Oxygen Delivery Method Nasal Cannula Weight: 232 lb 5.875 oz Body Mass Index (BMI) 36.3 Intake & Output: Intake and Output for Last 24 Hours 09/14/24 09/15/24 09/16/24 23:59 23:59 23:59 Intake Total 3834.17 / 3834.17 1411.25 / 1411.25 2100 / 2100 Balance 3834.17 / 3834.17 1411.25 / 141.25 2099 / 2099 Lab / Micro Data Attestation: I reviewed the patient's lab results. 09/16/24 06:00 09/16/24 06:00 Labs: Laboratory Results - last 24 hr 09/15/24 13:30: Vancomycin Trough 22.8 H 09/16/24 06:00: WBC 9.2, RBC 3.69 L, Hgb 11.0 L, Hct 35.3 L, MCV 95.7, MCH 29.8,MCHC 31.2 L, RDW Std Deviation 50.0 H, RDW Coeff of Terry 14.3, Plt Count 261, MPV9.4, Immature Gran % (Auto) 0.900, Neut % (Auto) 76.9 H, Lymph % (Auto) 11.6 L, [place] % (Auto) 7.0, Eos % (Auto) 3.2, Baso % (Auto) 0.4, Absolute Neuts (auto) 7.1, Absolute Lymphs (auto) 1.07, Nucleated RBC % 0, Sodium 140, Potassium 4.8, Chloride 101, Carbon Dioxide 32.4 H, Anion Gap 7, BUN 24 H, Creatinine 0.93, Estim Creat Clear Calc 65.28, Est GFR (MDRD) Non-Af 64, BUN/Creatinine Ratio 25.4 H, Glucose 108 H, Calcium 8.9, Random Vancomycin 14.4 Micro: Microbiology 09/13/24 Unknown Tissue - Shoulder Gram Stain - Final 09/13/24 Unknown Tissue - Shoulder Wound Culture - Final Staphylococcus aureus 09/13/24 Unknown Tissue - Shoulder Anaerobic Culture - Preliminary Checking for anaerobes, further studies to follow. 09/13/24 Unknown Tissue - Shoulder Gram Stain - Final 09/13/24 Unknown Tissue - Shoulder Wound Culture - Final Staphylococcus aureus 09/13/24 Unknown Tissue - Shoulder Anaerobic Culture - Preliminary Checking for anaerobes, further studies to follow. 09/13/24 Unknown Tissue - Shoulder Gram Stain - Final 09/13/24 Unknown Tissue - Shoulder Wound Culture - Final Staphylococcus aureus 09/13/24 Unknown Tissue - Shoulder Anaerobic Culture - Preliminary Checking for anaerobes, further studies to follow. 09/11/24 Unknown Fluid - Synovial (joint) Gram Stain - Final 09/11/24 Unknown Fluid - Synovial (joint) Body Fluid Culture - Final Meth. resistant Staph. aureus 09/11/24 Unknown Fluid - Synovial (joint) Anaerobic Culture - Preliminary Checking for anaerobes, further studies to follow. 09/15/24 11:10 Mucosa - Nasopharyngeal Coronavirus COVID-19 PCR - Final 09/15/24 11:10 Mucosa - Nasopharyngeal Respiratory Panel (PCR) - Final 09/13/24 14:35 Blood Culture (Wb) - Left Wrist Blood Culture - Preliminary No growth in 48 hours. 09/12/24 08:19 Swab (Method) Nasal Screen MRSA/MSSA - Final Physical Exam Narrative Left upper extremity: Exam stable neurovascular intact distally. Dressing is clean dry intact. No erythema. Const alert, oriented x3 and no apparent distress Assessment & Plan Assessment/Plan (1) Infection and inflammatory reaction due to other internal joint prosthesis, initial encounter: (2) History of reverse total replacement of right shoulder joint: PLAN: Postop day 3 irrigation debridement, synovectomy and revision left shoulder replacement interchangeable parts 1. Pain control: Patient requiring 1 oxycodone tablet at a time and Tylenol as scheduled. Continue current regimen hold narcotics were appropriate for hypotension 2. DVT prophylaxis: Aspirin 81 mg p.o. twice daily 3. Therapy: PT OT work on ADLs and gentle range of motion exercises follow total shoulder protocol. 4. Infectious disease: Infectious disease was able to see and evaluate the patient today. Have recommended vancomycin IV for 6 weeks. Patient's sensitivities have returned currently has MRSA from aspirate obtained September 11. Intraoperative cultures now 3 out of 3 MSSA. PICC line ordered. Patient's BMP shows a BUN improved today. 5. Hb/Hct: 11.0/35.3 improved from yesterday. Blood loss in relation to intraoperative and perioperative blood loss. Currently asymptomatic and improving postoperatively. Continue to monitor symptoms. 6. Hypotension: Improved on vitals today. Appreciate medical management 7. Hypoxia: Patient has remained on 2 L oxygen postoperatively. Appreciate medical management. Chest x-ray showed only chronic changes. Respiratory panelnegative 8. Postop constipation: Discussed with patient potential for constipation associate with narcotics. Patient currently on Senokot Disposition: PICC line in place. Plan for 6 weeks IV vancomycin. Initial planswere for discharge home however, patient doing poorly with physical therapy and unable to manage IV antibiotics at home. We are currently attempting to look for placement in a correction facility. Once we have an accepting facilitywill need to obtain pre-CERT. Patient demonstrates an understanding. [facility] Office: 09/16/24 1401 <Electronically signed by Fahad Cavanaugh MD> Cosigner Signature (if applicable): CC: ~ Signed [facility] Work Phone: [phone]) 934-544903-17-2025 Consult note [facility] Medical Records Department [address] [place] [address] Consultation - Infectious Dx 09/16/24 1444 MR#: [id number] Acct: [id number] Name: OSCAR WOO Rep #:[id number] : 1950 74 From: Sixto calhoun MD PCP: Dr. Hernando Grimes MD Status:ADM IN [id number] Assessment & Plan Assessment/Plan (1) Infection and inflammatory reaction due to other internal joint prosthesis, initial encounter: PLAN: Aspiration cx with MRSA. Taken to OR 09/13/[address] Cavanaugh for revision; surg cx x2 with MSSA. On vanc, will continue. Picc in place. Plan is for iv vanc and po rifampin for 6 weeks with stop date 10/25/24 with weekly labs. Afterthat, will need long course suppressive po abx. Counseled her that her home meds may be less effective while on rifampin. Also risk of liver dysfunction and reviewed potential signs. ID followup in 2 weeks. Will follow, thank you, wrote rx, d/w Dr. Cavanaugh on 09/13/24, d/w adult protective caseworker this AM HPI Consult Data Date of Consult: 09/16/24 HPI Narrative Reason for Consultation: PJI HPI Narrative: OSCAR WOO, is a 74 F who had L shoulder replacement about 7 years ago. Presented with one week new pain to L shoulder. No known inciting event. No fever or chills. No redness, swelling, or drainage. Pain was moderate, worse with movement. Had aspiration done as outpt, then admitted and taken to surgery09/13/[address] Cavanaugh for revision. She is R handed. No n/v/d. Full ROS performed and neg except as noted above. [facility] Medical History MRSA (methicillin resistant staph aureus) culture positive Wears glasses Post-menopausal Depression Anxiety Walker as ambulation aid Ambulates with cane Arthritis High cholesterol Back pain Restless legs Former smoker Shortness of breath on exertion History of pain when walking History of edema Hypertension Home Medications ?Medication ?Instructions ?Recorded ?Last Taken ?Type losartan 50 mg tablet 50 mg PO BID BP 09/19/14 History melatonin 5 mg tablet 10 mg PO QHS INSOMNIA Unknown History indapamide 1.25 mg tablet 2.5 mg PO DAILY BP 04/12/17 Unknown History pramipexole 0.5 mg tablet (Mirapex) 1 mg PO QHS RLS Unknown History bupropion HCl 300 mg 24 hr tablet, 150 mg PO DAILY DEP RESSION 06/11/20 09/13/24 History extended release gabapentin 600 mg tablet 600 mg PO QHS SLEEP 06/11/20 Unknown History mirtazapine 15 mg tablet 15 mg PO QHS INSOMNIA 06/23/20 20:00 History amlodipine 10 mg tablet 5 mg PO BID BP 09/11/2408/31 History duloxetine 30 mg capsule,delayed 30 mg PO DAILY DEPRES RAHEEM 09/11/24 09/13/24 History release (Cymbalta) pramipexole 0.5 mg tablet 0.5 mg PO DINNER RLS 5 Unknown History rifampin 300 mg capsule 300 mg PO BID 39 days #78 ca ps 09/16/24 Unknown Rx vancomycin 1 gram/200 mL in 1,000 mg IV Q24H 39 days # 3,900 mL 09/16/24 Unknown Rx dextrose 5 % intravenous piggyback Allergy/AdvReac Type Severity Reaction Status Date / Time Penicillins Allergy Anaphylaxis Verified 09/13/24 12:05 Surgical History History of surgery Hx of colonoscopy Hx of right cataract extraction Hx of left cataract extraction History of partial colectomy Hx of appendectomy Hx of total hip arthroplasty Hx of total shoulder replacement Hx of lumbar discectomy Hx of total shoulder replacement Hx of total hip arthroplasty Social History Smoking Status: Former smoker Physical Exam Const alert, oriented x3 and no apparent distress General Appearance: cooperative HEENT normocephalic and head/scalp atraumatic Eyes PERRL and EOMs intact bilaterally Neck supple and No nodes Resp normal air movement and clear to auscultation bilaterally Cardio regular rate and regular rhythm GI soft to palpation, non-tender and non-distended Extremity General Extremity: Negative for edema Skin no rashes or lesions noted Skin Narrative: Picc in RUE, LUE in ing Neuro CN's II-XII intact bilaterally Lab / Micro Data Attestation: I reviewed the patient's lab results. 09/16/24 06:00 09/16/24 06:00 Labs: Laboratory Results - last 24 hr 09/16/24 06:00: WBC 9.2, RBC 3.69 L, Hgb 11.0 L, Hct 35.3 L, MCV 95.7, MCH 29.8,MCHC 31.2 L, RDW Std Deviation 50.0 H, RDW Coeff of Terry 14.3, Plt Count 261, MPV9.4, Immature Gran % (Auto) 0.900, Neut% (Auto) 76.9 H, Lymph % (Auto) 11.6 L, [place] % (Auto) 7.0, Eos % (Auto) 3.2, Baso % (Auto) 0.4, Absolute Neuts (auto) 7.1, Absolute Lymphs (auto) 1.07, Nucleated RBC % 0, Sodium 140, Potassium 4.8, Chloride 101, Carbon Dioxide 32.4 H, Anion Gap 7, BUN 24 H, Creatinine 0.93, Estim Creat Clear Calc 65.28, Est GFR (MDRD) Non-Af 64, BUN/Creatinine Ratio 25.4 H, Glucose 108 H, Calcium 8.9, Random Vancomycin 14.4 Micro: Microbiology 09/13/24 Unknown Tissue - Shoulder Gram Stain - Final 09/13/24 Unknown Tissue - Shoulder Wound Culture - Final Staphylococcus aureus 09/13/24 Unknown Tissue - Shoulder Anaerobic Culture - Preliminary Checking for anaerobes, further studies to follow. 09/13/24 Unknown Tissue - Shoulder Gram Stain - Final 09/13/24 Unknown Tissue - Shoulder Wound Culture - Final Staphylococcus aureus 09/13/24 Unknown Tissue - Shoulder Anaerobic Culture - Preliminary Checking for anaerobes, further studies to follow. 09/13/24 Unknown Tissue - Shoulder Gram Stain - Final 09/13/24 Unknown Tissue - Shoulder Wound Culture - Final Staphylococcus aureus 09/13/24 Unknown Tissue - Shoulder Anaerobic Culture - Preliminary Checking for anaerobes, further studies to follow. 09/11/24 Unknown Fluid - Synovial (joint) Gram Stain - Final 09/11/24 Unknown Fluid - Synovial (joint) Body Fluid Culture - Final Meth. resistant Staph. aureus 09/11/24 Unknown Fluid - Synovial (joint) Anaerobic Culture - Preliminary Checking for anaerobes, further studies to follow. 09/15/24 11:10 Mucosa - Nasopharyngeal Coronavirus COVID-19 PCR - Final 09/15/24 11:10 Mucosa - Nasopharyngeal Respiratory Panel (PCR) - Final 09/13/24 14:35 Blood Culture (Wb) - Left Wrist Blood Culture - Preliminary No growth in 48 hours. 09/16/24 1451 Cosigner Signature (if applicable): CC: Dr. Hernando Grimes MD; Dr. Fahad Cavanaugh MD~ Signed [facility]03-17-2025 Progress note [facility] Medical Records Department [address] [place] [address] Progress Note - Orthopedic 09/16/24 1357 MR#: [id number] Acct: [id number] Name: OSCAR WOO Rep #:[id number] : 1950 74 From: Fahad Chi PCP: Dr. Hernando Grimes MD Status:ADM IN [id number] Subjective Subjective Patient doing well. Denies any chest pain or calf pain. No new shortness of breath. Remains on 2 L of oxygen. Infectious ease was able to the patient thismorning and placed patient on vancomycin IV for 6 weeks. PICC line is in place. Discharge planning has commenced. Patient will likely require correction upon discharge to help administer IV antibiotics participate in therapy. Objective Data Objective Data Vital Signs: Vital Signs Temp Pulse Resp BP Pulse Ox O2 Del Method O2 Flow Rate 98.3 F 94 16 133/94 H 94 Nasal Cannula 2 09/16/24 07:44 09/16/24 07:44 09/16/24 07:44 09/16/24 07:44 09/16/24 10:43 09/16/24 10:43 09/16/24 10:43 Oxygen Flow Rate (L/min) 2 Oxygen Delivery Method Nasal Cannula Weight: 232 lb 5.875 oz Body Mass Index (BMI) 36.3 Intake & Output: Intake and Output for Last 24 Hours 09/14/24 09/15/24 09/16/24 23:59 23:59 23:59 Intake Total 3834.17 / 3834.17 1411.25 / 1411.25 2100 / 2100 Balance 3834.17 / 3834.17 1411.25 / 1411.25 2100 / 2100 Lab / Micro Data Attestation: I reviewed the patient's lab results. 09/16/24 06:00 09/16/24 06:00 Labs: Laboratory Results - last 24 hr 09/15/24 13:30: Vancomycin Trough 22.8 H 09/16/24 06:00: WBC 9.2, RBC 3.69 L, Hgb 11.0 L, Hct 35.3 L, MCV 95.7, MCH 29.8,MCHC 31.2 L, RDW Std Deviation 50.0 H, RDW Coeff of Terry 14.3, Plt Count 261, MPV9.4, Immature Gran % (Auto) 0.900, Neut% (Auto) 76.9 H, Lymph % (Auto) 11.6 L, [place] % (Auto) 7.0, Eos % (Auto) 3.2, Baso % (Auto) 0.4, Absolute Neuts (auto) 7.1, Absolute Lymphs (auto) 1.07, Nucleated RBC % 0, Sodium 140, Potassium 4.8, Chloride 101, Carbon Dioxide 32.4 H, Anion Gap 7, BUN 24 H, Creatinine 0.93, Estim Creat Clear Calc 65.28, Est GFR (MDRD) Non-Af 64, BUN/Creatinine Ratio 25.4 H, Glucose 108 H, Calcium 8.9, Random Vancomycin 14.4 Micro: Microbiology 09/13/24 Unknown Tissue - Shoulder Gram Stain - Final 09/13/24 Unknown Tissue - Shoulder Wound Culture - Final Staphylococcus aureus 09/13/24 Unknown Tissue - Shoulder Anaerobic Culture - Preliminary Checking for anaerobes, further studies to follow. 09/13/24 Unknown Tissue - Shoulder Gram Stain - Final 09/13/24 Unknown Tissue - Shoulder Wound Culture - Final Staphylococcus aureus 09/13/24 Unknown Tissue - Shoulder Anaerobic Culture - Preliminary Checking for anaerobes, further studies to follow. 09/13/24 Unknown Tissue - Shoulder Gram Stain - Final 09/13/24 Unknown Tissue - Shoulder Wound Culture - Final Staphylococcus aureus 09/13/24 Unknown Tissue - Shoulder Anaerobic Culture - Preliminary Checking for anaerobes, further studies to follow. 09/11/24 Unknown Fluid - Synovial (joint) Gram Stain - Final 09/11/24 Unknown Fluid - Synovial (joint) Body Fluid Culture - Final Meth. resistant Staph. aureus 09/11/24 Unknown Fluid - Synovial (joint) Anaerobic Culture - Preliminary Checking for anaerobes, further studies to follow. 09/15/24 11:10 Mucosa - Nasopharyngeal Coronavirus COVID-19 PCR - Final 09/15/24 11:10 Mucosa - Nasopharyngeal Respiratory Panel (PCR) - Final 09/13/24 14:35 Blood Culture (Wb) - Left Wrist Blood Culture - Preliminary No growth in 48 hours. 09/12/24 08:19 Swab (Method) Nasal Screen MRSA/MSSA - Final Physical Exam Narrative Left upper extremity: Exam stable neurovascular intact distally. Dressing is clean dry intact. No erythema. Const alert, oriented x3 and no apparent distress Assessment & Plan Assessment/Plan (1) Infection and inflammatory reaction due to other internal joint prosthesis, initial encounter: (2) History of reverse total replacement of right shoulder joint: PLAN: Postop day 3 irrigation debridement, synovectomy and revision left shoulder replacement interchangeable parts 1. Pain control: Patient requiring 1 oxycodone tablet at a time and Tylenol as scheduled. Continue current regimen hold narcotics were appropriate for hypotension 2. DVT prophylaxis: Aspirin 81 mg p.o. twice daily 3. Therapy: PT OT work on ADLs and gentle range of motion exercises follow total shoulder protocol. 4. Infectious disease: Infectious disease was able to see and evaluate the patient today. Have recommended vancomycin IV for 6 weeks. Patient's sensitivities have returned currently has MRSA from aspirate obtained September 11. Intraoperative cultures now 3 out of 3 MSSA. PICC line ordered. Patient's BMP shows a BUN improved today. 5. Hb/Hct: 11.0/35.3 improved from yesterday. Blood loss in relation to intraoperative and perioperative blood loss. Currently asymptomatic and improving postoperatively. Continue to monitor symptoms. 6. Hypotension: Improved on vitals today. Appreciate medical management 7. Hypoxia: Patient has remained on 2 L oxygen postoperatively. Appreciate medical management. Chest x-ray showed only chronic changes. Respiratory panelnegative 8. Postop constipation: Discussed with patient potential for constipation associate with narcotics.Patient currently on Senokot Disposition: PICC line in place. Plan for 6 weeks IV vancomycin. Initial planswere for discharge home however, patient doing poorly with physical therapy and unable to manage IV antibiotics at home. We are currently attempting to look for placement in a correction facility. Once we have an accepting facilitywill need to obtain pre-CERT. Patient demonstrates an understanding. [facility] Office: 09/16/24 1404 Cosigner Signature (if applicable): CC: ~ Signed [facility]03-17-2025 Consult note Author Tino Law [facility] Note Date/Time September 16, 2024 7:0 3am [facility] Medical Records Department [address] [place] [address] Pharmacokinetic/Renal -Consult 09/15/24 1424 MR#: [id number] Acct: [id number] Name: OSCAR WOO Rep #:[id number] : 1950 74 From: Tino Law PCP: Dr. Hernando Grimes MD Status:ADM IN Location: [place] [address] Consult Antibiotic Management Pharmacy has been consulted to manage selected antibiotic: Vancomycin Type of Intervention Type of Consult: Follow-up Suspected Infection Suspected Infection: Skin/Soft tissue Prior Doses of Antibiotics Prior Doses of Antibiotics Received/Current Regimen: Vancomycin 750 mg Q12H last dose given 09/15 @ 0227 Labs Labs: Sodium 135 mmol/L (133-145) 09/15/24 06:08 Potassium 4.1 mmol/L (3.3-5.1) 09/15/24 06:08 Chloride 99 mmol/L (98-108) 09/15/24 06:08 Carbon Dioxide 24.7 mmol/L (21.0-32.0) 09/15/24 06:08 Anion Gap 11 (5-15) 09/15/24 06:08 BUN 33 mg/dL (4-19) H 09/15/24 06:08 Creatinine 1.12 mg/dL (0.70-1.20) 09/15/24 06:08 Est GFR (MDRD) Non-Af 51 (>60) L 09/15/24 06:08 BUN/Creatinine Ratio 29.0 RATIO (10-20) H 09/15/24 06:08 Glucose 100 mg/dL (70-99) H 09/15/24 06:08 Vancomycin Trough 22.8 ug/mL (5.0-15.0) H 09/15/24 13:30 Microbiology Microbiology: Microbiology 09/11/24 Unknown Fluid - Synovial (joint) Gram Stain - Final 09/11/24 Unknown Fluid - Synovial (joint) Body Fluid Culture - Preliminary Meth. resistant Staph. aureus 09/11/24 Unknown Fluid - Synovial (joint) Anaerobic Culture - Preliminary Checking for anaerobes, further studies to follow. 09/13/24 14:35 Blood Culture (Wb) - Left Wrist Blood Culture - Preliminary No growth in 48 hours. 09/15/24 11:10 Mucosa - Nasopharyngeal Coronavirus COVID-19 PCR - Final 09/13/24 Unknown Tissue - Shoulder Gram Stain - Final 09/13/24 Unknown Tissue - Shoulder Wound Culture - Preliminary Staphylococcus aureus 09/13/24 Unknown Tissue - Shoulder Gram Stain - Final 09/13/24 Unknown Tissue - Shoulder Wound Culture - Preliminary Staphylococcus aureus 09/13/24 Unknown Tissue - Shoulder Gram Stain - Final 09/13/24 Unknown Tissue - Shoulder Wound Culture - Preliminary Staphylococcus aureus 09/12/24 08:19 Swab (Method) Nasal Screen MRSA/MSSA - Final Dosing Weight Weight used for dosin kg Estimated Creatinine Clearance Estimated Creatinine Clearance: ~ 54 Goal Trough Goal Trough: 10-15 mcg/mL Pharmacy Plan for Drug Dosing Pharmacy Plan for Drug Dosing: Vancomycin trough = 22.8, hold for now, random in AM Pharmacy Service will continue to monitor and adjust dosing as required. Follow-Up Labs Follow-Up Labs: Trough: Vancomycin Date/Time Labs Ordered Labs to be done on [date and time ordered]: 09/16 @ 0600 09/15/24 1426 <Electronically signed by Tino calhoun> Date _ Tino Law 09/16/24 0703 <Electronically signed by Fahad Cavanaugh MD> Cosigner Signature (if applicable): Date Fahad Cavanaugh MD CC: ~ Signed [facility] Work Phone: [phone]) 336-602603-17-2025 Consult note Author Tino Law [facility] Note Date/Time September 16, 2024 7:0 3am [facility] Medical Records Department [address] [place] [address] Pharmacokinetic/Renal -Consult 09/16/24 0658 MR#: [id number] Acct: [id number] Name: OSCAR WOO Rep #:[id number] : 1950 74 From: Tino Law PCP: Dr. Hernando Grimes MD Status:ADM IN Location: [place] [address] Consult Antibiotic Management Pharmacy has been consulted to manage selected antibiotic: Vancomycin Type of Intervention Type of Consult: Follow-up Suspected Infection Suspected Infection: Skin/Soft tissue Prior Doses of Antibiotics Prior Doses of Antibiotics Received/Current Regimen: Vancomycin 750 mg Q12H last dose given 09/15 @ 0227 Labs Labs: Sodium 140 mmol/L (133-145) 09/16/24 06:00 Potassium 4.8 mmol/L (3.3-5.1) 09/16/24 06:00 Chloride 101 mmol/L (98-108) 09/16/24 06:00 Carbon Dioxide 32.4 mmol/L (21.0-32.0) H 09/16/24 06:00 Anion Gap 7 (5-15) 09/16/24 06:00 BUN 24 mg/dL (4-19) H 09/16/24 06:00 Creatinine 0.93 mg/dL (0.70-1.20) 09/16/24 06:00 Est GFR (MDRD) Non-Af 64 (>60) 09/16/24 06:00 BUN/Creatinine Ratio 25.4 RATIO (10-20) H 09/16/24 06:00 Glucose 108 mg/dL (70-99) H 09/16/24 06:00 Vancomycin Trough 22.8 ug/mL (5.0-15.0) H 09/15/24 13:30 Random Vancomycin 14.4 ug/mL (0.0-15.0) 09/16/24 06:00 Microbiology Microbiology: Microbiology 09/15/24 11:10 Mucosa - Nasopharyngeal Coronavirus COVID-19 PCR - Final 09/15/24 11:10 Mucosa - Nasopharyngeal Respiratory Panel (PCR) - Final 09/11/24 Unknown Fluid - Synovial (joint) Gram Stain - Final 09/11/24 Unknown Fluid - Synovial (joint) Body Fluid Culture - Preliminary Meth. resistant Staph. aureus 09/11/24 Unknown Fluid - Synovial (joint) Anaerobic Culture - Preliminary Checking for anaerobes, further studies to follow. 09/13/24 14:35 Blood Culture (Wb) - Left Wrist Blood Culture - Preliminary No growth in 48 hours. 09/13/24 Unknown Tissue - Shoulder Gram Stain - Final 09/13/24 Unknown Tissue - Shoulder Wound Culture - Preliminary Staphylococcus aureus 09/13/24 Unknown Tissue - Shoulder Gram Stain - Final 09/13/24 Unknown Tissue - Shoulder Wound Culture - Preliminary Staphylococcus aureus 09/13/24 Unknown Tissue - Shoulder Gram Stain - Final 09/13/24 Unknown Tissue - Shoulder Wound Culture - Preliminary Staphylococcus aureus 09/12/24 08:19 Swab (Method) Nasal Screen MRSA/MSSA - Final Dosing Weight Weight used for dosin kg Estimated Creatinine Clearance Estimated Creatinine Clearance: ~ 65 Goal Trough Goal Trough: 10-15 mcg/mL Pharmacy Plan for Drug Dosing Pharmacy Plan for Drug Dosing: Vancomycin random = 14.4, resume dosing with 1000 mg Q24H Pharmacy Service will continue to monitor and adjust dosing as required. Follow-Up Labs Follow-Up Labs: Trough: Vancomycin Date/Time Labs Ordered Labs to be done on [date and time ordered]: 09/18/24 @ 0630 09/16/24 0659 <Electronically signed by Tino calhoun> Date _ Tino Law 09/16/24 0703 <Electronically signed by Fahad Cavanaugh MD> Cosigner Signature (if applicable): Date Fahad Cavanaugh MD CC: ~ Signed [facility] Work Phone: [phone]) 320-284403-17-2025 Consult note [facility] Medical Records Department [address] [place] [address] Pharmacokinetic/Renal -Consult 09/15/24 1424 MR#: [id number] Acct: [id number] Name: OSCAR WOO Rep #:[id number] : 1950 74 From: Tino Law PCP: Dr. Hernando Grimes MD Status:ADM IN Location: [place] [address] Consult Antibiotic Management Pharmacy has been consulted to manage selected antibiotic: Vancomycin Type of Intervention Type of Consult: Follow-up Suspected Infection Suspected Infection: Skin/Soft tissue Prior Doses of Antibiotics Prior Doses of Antibiotics Received/Current Regimen: Vancomycin 750 mg Q12H last dose given 09/15 @ 0227 Labs Labs: Sodium 135 mmol/L (133-145) 09/15/24 06:08 Potassium 4.1 mmol/L (3.3-5.1) 09/15/24 06:08 Chloride 99 mmol/L (98-108) 09/15/24 06:08 Carbon Dioxide 24.7 mmol/L (21.0-32.0) 09/15/24 06:08 Anion Gap 11 (5-15) 09/15/24 06:08 BUN 33 mg/dL (4-19) H 09/15/24 06:08 Creatinine 1.12 mg/dL (0.70-1.20) 09/15/24 06:08 Est GFR (MDRD) Non-Af 51 (>60) L 09/15/24 06:08 BUN/Creatinine Ratio 29.0 RATIO (10-20) H 09/15/24 06:08 Glucose 100 mg/dL (70-99) H 09/15/24 06:08 Vancomycin Trough 22.8 ug/mL (5.0-15.0) H 09/15/24 13:30 Microbiology Microbiology: Microbiology 09/11/24 Unknown Fluid - Synovial (joint) Gram Stain - Final 09/11/24 Unknown Fluid - Synovial (joint) Body Fluid Culture - Preliminary Meth. resistant Staph. aureus 09/11/24 Unknown Fluid - Synovial (joint) Anaerobic Culture - Preliminary Checking for anaerobes, further studies to follow. 09/13/24 14:35 Blood Culture (Wb) - Left Wrist Blood Culture - Preliminary No growth in 48 hours. 09/15/24 11:10 Mucosa - Nasopharyngeal Coronavirus COVID-19 PCR - Final 09/13/24 Unknown Tissue - Shoulder Gram Stain - Final 09/13/24 Unknown Tissue - Shoulder Wound Culture - Preliminary Staphylococcus aureus 09/13/24 Unknown Tissue - Shoulder Gram Stain - Final 09/13/24 Unknown Tissue - Shoulder Wound Culture - Preliminary Staphylococcus aureus 09/13/24 Unknown Tissue - Shoulder Gram Stain - Final 09/13/24 Unknown Tissue - Shoulder Wound Culture - Preliminary Staphylococcus aureus 09/12/24 08:19 Swab (Method) Nasal Screen MRSA/MSSA - Final Dosing Weight Weight used for dosin kg Estimated Creatinine Clearance Estimated Creatinine Clearance: ~ 54 Goal Trough Goal Trough: 10-15 mcg/mL Pharmacy Plan for Drug Dosing Pharmacy Plan for Drug Dosing: Vancomycin trough = 22.8, hold for now, random in AM Pharmacy Service will continue to monitor and adjust dosing as required. Follow-Up Labs Follow-Up Labs: Trough: Vancomycin Date/Time Labs Ordered Labs to be done on [date and time ordered]: 09/16 @ 0600 09/15/24 1426 r> Date _ Tino Law 09/16/24 0703 > Yanick Signature (if applicable): Date Fahad Cavanaugh MD CC: ~ Signed [facility]03-17-2025 Consult note [facility] Medical Records Department [address] [place] [address] Pharmacokinetic/Renal -Consult 09/16/24 0658 MR#: [id number] Acct: [id number] Name: OSCAR WOO Rep #:[id number] : 1950 74 From: Tino Law PCP: Dr. Hernando Grimes MD Status:ADM IN Y Location: [id number] Consult Antibiotic Management Pharmacy has been consulted to manage selected antibiotic: Vancomycin Type of Intervention Type of Consult: Follow-up Suspected Infection Suspected Infection: Skin/Soft tissue Prior Doses of Antibiotics Prior Doses of Antibiotics Received/Current Regimen: Vancomycin 750 mg Q12H last dose given 09/15 @ 0227 Labs Labs: Sodium 140 mmol/L (133-145) 09/16/24 06:00 Potassium 4.8 mmol/L (3.3-5.1) 09/16/24 06:00 Chloride 101 mmol/L (98-108) 09/16/24 06:00 Carbon Dioxide 32.4 mmol/L (21.0-32.0) H 09/16/24 06:00 Anion Gap 7 (5-15) 09/16/24 06:00 BUN 24 mg/dL (4-19) H 09/16/24 06:00 Creatinine 0.93 mg/dL (0.70-1.20) 09/16/24 06:00 Est GFR (MDRD) Non-Af 64 (>60) 09/16/24 06:00 BUN/Creatinine Ratio 25.4 RATIO (10-20) H 09/16/24 06:00 Glucose 108 mg/dL (70-99) H 09/16/24 06:00 Vancomycin Trough 22.8 ug/mL (5.0-15.0) H 09/15/24 13:30 Random Vancomycin 14.4 ug/mL (0.0-15.0) 09/16/24 06:00 Microbiology Microbiology: Microbiology 09/15/24 11:10 Mucosa - Nasopharyngeal Coronavirus COVID-19 PCR - Final 09/15/24 11:10 Mucosa - Nasopharyngeal Respiratory Panel (PCR) - Final 09/11/24 Unknown Fluid - Synovial (joint) Gram Stain - Final 09/11/24 Unknown Fluid - Synovial (joint) Body Fluid Culture - Preliminary Meth. resistant Staph. aureus 09/11/24 Unknown Fluid - Synovial (joint) Anaerobic Culture - Preliminary Checking for anaerobes, further studies to follow. 09/13/24 14:35 Blood Culture (Wb) - Left Wrist Blood Culture - Preliminary No growth in 48 hours. 09/13/24 Unknown Tissue - Shoulder Gram Stain - Final 09/13/24 Unknown Tissue - Shoulder Wound Culture - Preliminary Staphylococcus aureus 09/13/24 Unknown Tissue - Shoulder Gram Stain - Final 09/13/24 Unknown Tissue - Shoulder Wound Culture - Preliminary Staphylococcus aureus 09/13/24 Unknown Tissue - Shoulder Gram Stain - Final 09/13/24 Unknown Tissue - Shoulder Wound Culture - Preliminary Staphylococcus aureus 09/12/24 08:19 Swab (Method) Nasal Screen MRSA/MSSA - Final Dosing Weight Weight used for dosin kg Estimated Creatinine Clearance Estimated Creatinine Clearance: ~ 65 Goal Trough Goal Trough: 10-15 mcg/mL Pharmacy Plan for Drug Dosing Pharmacy Plan for Drug Dosing: Vancomycin random = 14.4, resume dosing with 1000 mg Q24H Pharmacy Service will continue to monitor and adjust dosing as required. Follow-Up Labs Follow-Up Labs: Trough: Vancomycin Date/Time Labs Ordered Labs to be done on [date and time ordered]: 09/18/24 @ 0630 09/16/24 0659 r> Date _ Tino Law 09/16/24 0703 > Yanick Signature (if applicable): Date Fahad Cavanaugh MD CC: ~ Signed [facility]03-16-2025 Progress note Author Emili Lee [facility] Note Date/Time September 15, 2024 11: 30am [facility] Medical Records Department [address] [place] [address] Progress Note - Hospitalist 09/15/24 0804 MR#: [id number] Acct: [id number] Name: OSCAR WOO Rep #:[id number] : 1950 74 From: Emili Lee MD PCP: Dr. Hernando Grimes MD Status:ADM IN Location: [facility] TX603-4 Reason for Visit Reason for Visit: Diagnoses Depression, unspecified (09/14/24) Restless legs syndrome (09/14/24) Insomnia, unspecified (09/14/24) Polyneuropathy, unspecified (09/14/24) Essential (primary) hypertension (09/14/24) Infection and inflammatory reaction due to other internal joint prosthesis, initial encounter (09/14/24) Pain due to internal orthopedic prosthetic devices, implants and grafts, initialencounter (09/14/24) Encounter for other preprocedural examination (09/14/24) Presence of right artificial shoulder joint (09/14/24) Presence of left artificial shoulder joint (09/14/24) Subjective Subjective Patient reports chronic shortness of breath on exertion that has not been workedup in the past, she thinks maybe she has been more short of breath recently but she is unsure, denies swelling in her legs, no productive cough Objective Data Objective Data Vital Signs: Vital Signs Temp Pulse Resp BP Pulse Ox O2 Del Method O2 Flow Rate 97.5 F L 80 20 H 121/85 H 94 Nasal Cannula 2 09/15/24 02:18 09/15/24 02:18 09/15/24 02:18 09/15/24 02:18 09/15/24 02:18 09/15/24 02:30 09/15/24 02:30 Oxygen Flow Rate (L/min) 2 Oxygen Delivery Method Nasal Cannula Weight: 105.4 kg Body Mass Index (BMI) 36.3 Intake & Output: Intake and Output for Last 24 Hours 09/13/24 09/14/24 09/15/24 23:59 23:59 23:59 Intake Total 2825.5 / 2825.5 3834.17 / 3834.17 942.75 / 942.75 Balance 2825.5 / 2825.5 3834.17 / 3834.17 942.75 / 942.75 Lab / Micro Data 09/15/24 06:08 09/15/24 06:08 Labs: Laboratory Results - last 24 hr 09/14/24 06:57: Sodium 131 L, Potassium 4.0, Chloride 93 L, Carbon Dioxide 26.4,Anion Gap 12, BUN 24 H, Creatinine 1.28 H, Estim Creat Clear Calc 47.43 L, Est GFR (MDRD) Non-Af 44 L, BUN/Creatinine Ratio 18.8, Glucose 111 H, Calcium 8.3 09/15/24 06:08: WBC 9.6, RBC 3.91 L, Hgb 11.5 L, Hct 36.4 L, MCV 93.1, MCH 29.4,MCHC 31.6 L, RDW Std Deviation 48.1 H, RDW Coeff of Terry 14.1, Plt Count 238, MPV10.0, Sodium 135, Potassium 4.1, Chloride 99, Carbon Dioxide 24.7, Anion Gap 11,BUN 33 H, Creatinine 1.12, Estim Creat Clear Calc 54.21, Est GFR (MDRD) Non-Af 51 L, BUN/Creatinine Ratio 29.0 H, Glucose 100 H, Calcium 8.4 Micro: Microbiology 09/13/24 Unknown Tissue - Shoulder Gram Stain - Final 09/13/24 Unknown Tissue - Shoulder Wound Culture - Preliminary Staphylococcus aureus 09/13/24 Unknown Tissue - Shoulder Gram Stain - Final 09/13/24 Unknown Tissue - Shoulder Wound Culture - Preliminary Staphylococcus aureus 09/13/24 Unknown Tissue - Shoulder Gram Stain - Final 09/13/24 Unknown Tissue - Shoulder Wound Culture - Preliminary Staphylococcus aureus 09/11/24 Unknown Fluid - Synovial (joint) Gram Stain - Final 09/11/24 Unknown Fluid - Synovial (joint) Body Fluid Culture - Preliminary Meth. resistant Staph. aureus 09/12/24 08:19 Swab (Method) Nasal Screen MRSA/MSSA - Final Physical Exam Narrative General: Alert, oriented, no apparent distress HEENT: Atraumatic, normocephalic Eyes: Anicteric, normal conjunctiva, extraocular movements grossly intact Neck: Supple Respiratory: No overt wheezes or rhonchi, normal respiratory effort Cardiovascular: Regular rate and rhythm GI: Soft, nontender, nondistended Extremities: No edema Musculoskeletal: Left arm in sling Neuro: No overt focal neurological deficits Skin: No rashes appreciated Psych: Cooperative Assessment & Plan Assessment/Plan (1) Hypertension: QUALIFIERS: Hypertension type: unspecified Qualified Code(s): I10- Essential (primary) hypertension PLAN: Plan # Left shoulder periprosthetic joint infection -Status post irrigation debridement with complete synovectomy and revision and left reverse total shoulder replacement by Dr. Cavanaugh 09/13/2024 -Management per primary -Previous fluid culture growing MRSA -Patient on vancomycin -Awaiting IntraOp cultures, preliminary and several growing Staph aureus -ID consult after the weekend, they were contacted prior to surgery and recommended IV vancomycin over the weekend -09/15: On vancomycin, shoulder culture results thus far growing Staph aureus, blood culture no growth to date # Hypoxia -09/15: Patient 88% on room air has no home O2 requirements, chest x-ray with chronic changes, albuterol treatments as needed, COVID and influenza pending. Patient reports she does have chronic shortness of breath on exertion, unclear if this is all part of chronic process that had not been evaluated/worked up if there is a new component. Awaiting viral swabs #Hypertension-now hypotension -Patient on amlodipine-this has now been held due to low blood pressure -Indapamide held -Given patient's blood pressure systolic only 84 this a.m., likely due to medications to help with pain and nighttime medications, and that patient is on ketorolac will also hold losartan for now -Add back/adjust blood pressure medications as indicated, currently continue to hold -Patient completely asymptomatic, blood pressure slow to improve could consider gentle IV fluids, no evidence of ongoing blood loss -09/15: Blood pressure improved/stabilized, continue to hold home antihypertensives until this changes consistent # Anemia -Hemoglobin 10.2 down from 12.2 on 09/12 -Suspect this is secondary to recent surgical intervention -Repeat in a.m. or sooner if any concerns for ongoing blood loss -09/15: Improved today, no evidence of ongoing blood loss, no further workup Chronic medical problems: #Depression/anxiety -Continue home medications # Restless leg syndrome -continue patient's home medication regimen #DVT ppx: Timing and discretion per primary Emili Lee MD Time spent in the patient's overall evaluation, decision-making process, review of diagnostic data, adjustment of management, discussion with other providers, nursing and ancillary staff involved in patient's care documentation, 36 Minutes Charges/Coding Visit Charges Inpatient E&M: 42508 Subs Hosp L2 09/15/24 1130 <Electronically signed by Emili Lee MD> Cosigner Signature (if applicable): CC: ~ Signed [facility] Work Phone: [phone]) 808-817103-16-2025 Progress note [facility] Medical Records Department [address] [place] [address] Progress Note - Hospitalist 09/15/24 0804 MR#: [id number] Acct: [id number] Name: OSCAR WOO Rep #:[id number] : 1950 74 From: Emili Lee MD PCP: Dr. Hernando Grimes MD Status:ADM IN Location: [facility] [id number] Reason for Visit Reason for Visit: Diagnoses Depression, unspecified (09/14/24) Restless legs syndrome (09/14/24) Insomnia, unspecified (09/14/24) Polyneuropathy, unspecified (09/14/24) Essential (primary) hypertension (09/14/24) Infection and inflammatory reaction due to other internal joint prosthesis, initial encounter (09/14/24) Pain due to internal orthopedic prosthetic devices, implants and grafts, initialencounter (09/14/24) Encounter for other preprocedural examination (09/14/24) Presence of right artificial shoulder joint (09/14/24) Presence of left artificial shoulder joint (09/14/24) Subjective Subjective Patient reports chronic shortness of breath on exertion that has not been workedup in the past, shethinks maybe she has been more short of breath recently but she is unsure, denies swelling in her legs, no productive cough Objective Data Objective Data Vital Signs: Vital Signs Temp Pulse Resp BP Pulse Ox O2 Del Method O2 Flow Rate 97.5 F L 80 20 H 121/85 H 94 Nasal Cannula 2 09/15/24 02:18 09/15/24 02:18 09/15/24 02:18 09/15/24 02:18 09/15/24 02:18 09/15/24 02:30 09/15/24 02:30 Oxygen Flow Rate (L/min) 2 Oxygen Delivery Method Nasal Cannula Weight: 105.4 kg Body Mass Index (BMI) 36.3 Intake & Output: Intake and Output for Last 24 Hours 09/13/24 09/14/24 09/15/24 23:59 23:59 23:59 Intake Total 2825.5 / 2825.5 3834.17 / 3834.17 942.75 / 942.75 Balance 2825.5 / 2825.5 3834.17 / 3834.17 942.75 / 942.75 Lab / Micro Data 09/15/24 06:08 09/15/24 06:08 Labs: Laboratory Results - last 24 hr 09/14/24 06:57: Sodium 131 L, Potassium 4.0, Chloride 93 L, Carbon Dioxide 26.4,Anion Gap 12, BUN 24 H, Creatinine 1.28 H, Estim Creat Clear Calc 47.43 L, Est GFR (MDRD) Non-Af 44 L, BUN/Creatinine Ratio 18.8, Glucose 111 H, Calcium 8.3 09/15/24 06:08: WBC 9.6, RBC 3.91 L, Hgb 11.5 L, Hct 36.4 L, MCV 93.1, MCH 29.4,MCHC 31.6 L, RDW Std Deviation 48.1 H, RDW Coeff of Terry 14.1, Plt Count 238, MPV10.0, Sodium 135, Potassium 4.1, Chloride 99, Carbon Dioxide 24.7, Anion Gap 11,BUN 33 H, Creatinine 1.12, Estim Creat Clear Calc 54.21, Est GFR (MDRD) Non-Af 51 L, BUN/Creatinine Ratio 29.0 H, Glucose 100 H, Calcium 8.4 Micro: Microbiology 09/13/24 Unknown Tissue - Shoulder Gram Stain - Final 09/13/24 Unknown Tissue - Shoulder Wound Culture - Preliminary Staphylococcus aureus 09/13/24 Unknown Tissue - Shoulder Gram Stain - Final 09/13/24 Unknown Tissue - Shoulder Wound Culture - Preliminary Staphylococcus aureus 09/13/24 Unknown Tissue - Shoulder Gram Stain - Final 09/13/24 Unknown Tissue - Shoulder Wound Culture - Preliminary Staphylococcus aureus 09/11/24 Unknown Fluid - Synovial (joint) Gram Stain - Final 09/11/24 Unknown Fluid - Synovial (joint) Body Fluid Culture - Preliminary Meth. resistant Staph. aureus 09/12/24 08:19 Swab (Method) Nasal Screen MRSA/MSSA - Final Physical Exam Narrative General: Alert, oriented, no apparent distress HEENT: Atraumatic, normocephalic Eyes: Anicteric, normal conjunctiva, extraocular movements grossly intact Neck: Supple Respiratory: No overt wheezes or rhonchi, normal respiratory effort Cardiovascular: Regular rate and rhythm GI: Soft, nontender, nondistended Extremities: No edema Musculoskeletal: Left arm in sling Neuro: No overt focal neurological deficits Skin: No rashes appreciated Psych: Cooperative Assessment & Plan Assessment/Plan (1) Hypertension: QUALIFIERS: Hypertension type: unspecified Qualified Code(s): I10- Essential (primary) hypertension PLAN: Plan # Left shoulder periprosthetic joint infection -Status post irrigation debridement with complete synovectomy and revision and left reverse total shoulder replacement by Dr. Cavanaugh 09/13/2024 -Management per primary -Previous fluid culture growing MRSA -Patient on vancomycin -Awaiting IntraOp cultures, preliminary and several growing Staph aureus -ID consult after the weekend, they were contacted prior to surgery and recommended IV vancomycin over the weekend -09/15: On vancomycin, shoulder culture results thus far growing Staph aureus, blood culture no growth to date # Hypoxia -09/15: Patient 88% on room air has no home O2 requirements, chest x-ray with chronic changes, albuterol treatments as needed, COVID and influenza pending. Patient reports she does have chronic shortness of breath on exertion, unclear if this is all part of chronic process that had not been evaluated/worked up if there is a new component. Awaiting viral swabs #Hypertension-now hypotension -Patient on amlodipine-this has now been held due to low blood pressure -Indapamide held -Given patient's blood pressure systolic only 84 this a.m., likely due to medications to help with pain and nighttime medications, and that patient is on ketorolac will also hold losartan for now -Add back/adjust blood pressure medications as indicated, currently continue to hold -Patient completely asymptomatic, blood pressure slow to improve could consider gentle IV fluids, no evidence of ongoing blood loss -09/15: Blood pressure improved/stabilized, continue to hold home antihypertensives until this changes consistent # Anemia -Hemoglobin 10.2 down from 12.2 on 09/12 -Suspect this is secondary to recent surgical intervention -Repeat in a.m. or sooner if any concerns for ongoing blood loss -09/15: Improved today, no evidence of ongoing blood loss, no further workup Chronic medical problems: #Depression/anxiety -Continue home medications # Restless leg syndrome -continue patient's home medication regimen #DVT ppx: Timing and discretion per primary Emili Lee MD Time spent in the patient's overall evaluation, decision-making process, review of diagnostic data,adjustment of management, discussion with other providers, nursing and ancillary staff involved in patient's care documentation, 36 Minutes Charges/Coding Visit Charges Inpatient E&M: 93435 Subs Hosp L2 09/15/24 1130 Cosigner Signature (if applicable): CC: ~ Signed [facility]03-16-2025 Progress note Author Fahad Cavanaugh [facility] Note Date/Time September 15, 2024 8:1 9am [facility] Medical Records Department [address] [place] [address] Progress Note - Orthopedic 09/15/24 0811 MR#: [id number] Acct: [id number] Name: OSCAR WOO Rep #:[id number] : 1950 74 From: Fahad Chi PCP: Dr. Hernando Grimes MD Status:ADM IN Location: MS3 IM286-2 Subjective Subjective Patient doing well overall. No acute events overnight. Remains on 2 L of oxygen. Denies any chest pain shortness of breath or dizziness with getting up and moving around. Therapy is into work with the patient this morning. Blood pressures improved from yesterday still slightly hypotensive. Objective Data Objective Data Vital Signs: Vital Signs Temp Pulse Resp BP Pulse Ox O2 Del Method O2 Flow Rate 97.5 F L 80 20 H 121/85 H 94 Nasal Cannula 2 09/15/24 02:18 09/15/24 02:18 09/15/24 02:18 09/15/24 02:18 09/15/24 02:18 09/15/24 02:30 09/15/24 02:30 Oxygen Flow Rate (L/min) 2 Oxygen Delivery Method Nasal Cannula Weight: 232 lb 5.875 oz Body Mass Index (BMI) 36.3 Intake & Output: Intake and Output for Last 24 Hours 09/13/24 09/14/24 09/15/24 23:59 23:59 23:59 Intake Total 2825.5 / 2825.5 3834.17 / 3834.17 942.75 / 942.75 Balance 2825.5 / 2825.5 3834.17 / 3834.17 942.75 / 942.75 Lab / Micro Data Attestation: I reviewed the patient's lab results. 09/15/24 06:08 09/15/24 06:08 Labs: Laboratory Results - last 24 hr 09/14/24 06:57: Sodium 131 L, Potassium 4.0, Chloride 93 L, Carbon Dioxide 26.4,Anion Gap 12, BUN 24 H, Creatinine 1.28 H, Estim Creat Clear Calc 47.43 L, Est GFR (MDRD) Non-Af 44 L, BUN/Creatinine Ratio 18.8, Glucose 111 H, Calcium 8.3 09/15/24 06:08: WBC 9.6, RBC 3.91 L, Hgb 11.5 L, Hct 36.4 L, MCV 93.1, MCH 29.4,MCHC 31.6 L, RDW Std Deviation 48.1 H, RDW Coeff of Terry 14.1, Plt Count 238, MPV10.0, Sodium 135, Potassium 4.1, Chloride 99, Carbon Dioxide 24.7, Anion Gap 11,BUN 33 H, Creatinine 1.12, Estim Creat Clear Calc 54.21, Est GFR (MDRD) Non-Af 51 L, BUN/Creatinine Ratio 29.0 H, Glucose 100 H, Calcium 8.4 Micro: Microbiology 09/13/24 Unknown Tissue - Shoulder Gram Stain - Final 09/13/24 Unknown Tissue - Shoulder Wound Culture - Preliminary Staphylococcus aureus 09/13/24 Unknown Tissue - Shoulder Gram Stain - Final 09/13/24 Unknown Tissue - Shoulder Wound Culture - Preliminary Staphylococcus aureus 09/13/24 Unknown Tissue - Shoulder Gram Stain - Final 09/13/24 Unknown Tissue - Shoulder Wound Culture - Preliminary Staphylococcus aureus 09/11/24 Unknown Fluid - Synovial (joint) Gram Stain - Final 09/11/24 Unknown Fluid - Synovial (joint) Body Fluid Culture - Preliminary Meth. resistant Staph. aureus 09/12/24 08:19 Swab (Method) Nasal Screen MRSA/MSSA - Final Physical Exam Narrative Left upper extremity: Dressing is clean dry and intact. No surrounding erythema. Swelling is appropriate for patient's postoperative state. Positive thumbs up, okay sign, cross his fingers. Sensations intact light touch axillary/R/M/U distally. Palpable radial pulse Const alert, oriented x3 and no apparent distress Assessment & Plan Assessment/Plan (1) Infection and inflammatory reaction due to other internal joint prosthesis, initial encounter: (2) History of reverse total replacement of right shoulder joint: PLAN: Postop day 1 irrigation debridement, synovectomy and revision left shoulder replacement interchangeable parts 1. Pain control: Patient requiring 1 oxycodone tablet at a time and Tylenol as scheduled. Continue current regimen hold narcotics were appropriate for hypotension 2. DVT prophylaxis: Aspirin 81 mg p.o. twice daily 3. Therapy: PT OT work on ADLs and gentle range of motion exercises follow total shoulder protocol 4. Infectious disease: Infectious disease will not be on service over the weekend. I did speak with them before surgery Monday. Recommended vancomycin IV over the weekend. Patient's sensitivities have returned currently has MRSA from aspirate obtained September 11. Intraoperative cultures now 3 out of 3 Staph aureus. PICC line ordered. Patient's BMP shows a BUN increased the last 2 daysat this point I have lowered the vancomycin trough to 10-15. Would appreciate from otology input. Pharmacology on consultation for antibiotic dosing of vancomycin. Blood cultures obtained before antibiotics administered yesterday awaiting results. Patient does note that she recently did have some blisters associated with using a heat pad on her feet. She noted redness around the area. She treated with topical triple antibiotic ointment seemed to resolve without significant issue. May be a source of infectious etiology. 5. Hb/Hct: 11.5/36.4 improved from yesterday. Blood loss in relation to intraoperative and perioperative blood loss. Currently asymptomatic and improving postoperatively. Continue to monitor symptoms. 6. Hypotension: Some of the patient's home hypertensive medicines have been held. Appreciate medical management 7. Hypoxia: Patient has remained on 2 L oxygen postoperatively. Appreciate medical management. Planned at this time appears to be tube obtain chest x-ray and respiratory panel. Heart rate has remained stable. Slight increase in respirations overnight as well. Medicine is on board. Will await these initialresults prior to proceeding with any further workup. 8. Postop constipation: Discussed with patient potential for constipation associate with narcotics. Patient currently on Senokot Disposition: PICC line was placed today. Will await final recommendations from infectious disease and antibiotic regimen well as infectious ease follow-up prior to discharge. Will focus on training patient on PICC line over the weekend. Once we have final antibiotic regimen established patient should be ready for discharge as long as she remains medically stable for the weekend. After discussion with the patient plan will be for discharge home and dependent on patient's ability to manage PICC line and home antibiotic regimen. [facility] Office: 09/15/24 0819 <Electronically signed by Fahad Cavanaugh MD> Cosigner Signature (if applicable): CC: ~ Signed [facility] Work Phone: [phone] Radiology Diagnostic study note [facility] Imaging Services [address] [place] [id number] Chest PA and Lateral MR#: [id number] Acct: [id number] Name: OSCAR WOO Rep #: [id number] : 1950 F 74 From: Abdulkadir Goodman DO PCP: Dr. Hernando Grimes MD Status: ADM IN Study:Chest PA and Lateral Date of Exam: 09/15/24 Exam# [id number] Ordering Dr: Wenceslao Lee MD PROCEDURE: Chest radiographs REASON FOR EXAM: Hypoxia TECHNIQUE: Two views of the chest COMPARISON: 07/15/2021 FINDINGS: Cardiomediastinal silhouette is within normal limits. Unchanged coarse interstitial lung markings predominantly at the lung bases. No focal consolidation, pleural effusion or sizable pneumothorax. Emphysema. Right PICC linecatheter in place. Bilateral shoulder prostheses. RAD/Chest PA and Lateral IMPRESSION: No acute airspace abnormality. Probable chronic interstitial changes at the lung bases. [facility] CC: Dr. Hernando Grimes MD; Dr. Emili Lee MD ~ Video Manager: Signed [facility]03-16-2025 Progress note [facility] Medical Records Department [address] [place] [address] Progress Note - Orthopedic 09/15/24 0811 MR#: [id number] Acct: [id number] Name: OSCAR WOO Rep #:[id number] : 1950 74 From: Fahad Chi PCP: Dr. Hernando Grimes MD Status:ADM IN [id number] Subjective Subjective Patient doing well overall. No acute events overnight. Remains on 2 L of oxygen. Denies any chest pain shortness of breath or dizziness with getting up and moving around. Therapy is into work with the patient this morning. Blood pressures improved from yesterday still slightly hypotensive. Objective Data Objective Data Vital Signs: Vital Signs Temp Pulse Resp BP Pulse Ox O2 Del Method O2 Flow Rate 97.5 F L 80 20 H 121/85 H 94 Nasal Cannula 2 09/15/24 02:18 09/15/24 02:18 09/15/24 02:18 09/15/24 02:18 09/15/24 02:18 09/15/24 02:30 09/15/24 02:30 Oxygen Flow Rate (L/min) 2 Oxygen Delivery Method Nasal Cannula Weight: 232 lb 5.875 oz Body Mass Index (BMI) 36.3 Intake & Output: Intake and Output for Last 24 Hours 09/13/24 09/14/24 09/15/24 23:59 23:59 23:59 Intake Total 2825.5 / 2825.5 3834.17 / 3834.17 942.75 / 942.75 Balance 2825.5 / 2825.5 3834.17 / 3834.17 942.75 / 942.75 Lab / Micro Data Attestation: I reviewed the patient's lab results. 09/15/24 06:08 09/15/24 06:08 Labs: Laboratory Results - last 24 hr 09/14/24 06:57: Sodium 131 L, Potassium 4.0, Chloride 93 L, Carbon Dioxide 26.4,Anion Gap 12, BUN 24 H, Creatinine 1.28 H, Estim Creat Clear Calc 47.43 L, Est GFR (MDRD) Non-Af 44 L, BUN/Creatinine Ratio 18.8, Glucose 111 H, Calcium 8.3 09/15/24 06:08: WBC 9.6, RBC 3.91 L, Hgb 11.5 L, Hct 36.4 L, MCV 93.1, MCH 29.4,MCHC 31.6 L, RDW Std Deviation 48.1 H, RDW Coeff of Terry 14.1, Plt Count 238, MPV10.0, Sodium 135, Potassium 4.1, Chloride 99, Carbon Dioxide 24.7, Anion Gap 11,BUN 33 H, Creatinine 1.12, Estim Creat Clear Calc 54.21, Est GFR (MDRD) Non-Af 51 L, BUN/Creatinine Ratio 29.0 H, Glucose 100 H, Calcium 8.4 Micro: Microbiology 09/13/24 Unknown Tissue - Shoulder Gram Stain - Final 09/13/24 Unknown Tissue - Shoulder Wound Culture - Preliminary Staphylococcus aureus 09/13/24 Unknown Tissue - Shoulder Gram Stain - Final 09/13/24 Unknown Tissue - Shoulder Wound Culture - Preliminary Staphylococcus aureus 09/13/24 Unknown Tissue - Shoulder Gram Stain - Final 09/13/24 Unknown Tissue - Shoulder Wound Culture - Preliminary Staphylococcus aureus 09/11/24 Unknown Fluid - Synovial (joint) Gram Stain - Final 09/11/24 Unknown Fluid - Synovial (joint) Body Fluid Culture - Preliminary Meth. resistant Staph. aureus 09/12/24 08:19 Swab (Method) Nasal Screen MRSA/MSSA - Final Physical Exam Narrative Left upper extremity: Dressing is clean dry and intact. No surrounding erythema. Swelling is appropriate for patient's postoperative state. Positive thumbs up, okay sign, cross his fingers. Sensations intact light touch axillary/R/M/U distally. Palpable radial pulse Const alert, oriented x3 and no apparent distress Assessment & Plan Assessment/Plan (1) Infection and inflammatory reaction due to other internal joint prosthesis, initial encounter: (2) History of reverse total replacement of right shoulder joint: PLAN: Postop day 1 irrigation debridement, synovectomy and revision left shoulder replacement interchangeable parts 1. Pain control: Patient requiring 1 oxycodone tablet at a time and Tylenol as scheduled. Continue current regimen hold narcotics were appropriate for hypotension 2. DVT prophylaxis: Aspirin 81 mg p.o. twice daily 3. Therapy: PT OT work on ADLs and gentle range of motion exercises follow total shoulder protocol 4. Infectious disease: Infectious disease will not be on service over the weekend. I did speak withthem before surgery Monday. Recommended vancomycin IV over the weekend. Patient's sensitivities have returned currently has MRSA from aspirate obtained September 11. Intraoperative cultures now 3 out of 3 Staph aureus. PICC line ordered. Patient's BMP shows a BUN increased the last 2 daysat this point I have lowered the vancomycin trough to 10-15. Would appreciate from otology input. Pharmacology on consultation for antibiotic dosing of vancomycin. Blood cultures obtained before antibiotics administered yesterday awaiting results. Patient does note that she recently did have some blisters associated with using a heat pad on her feet. She noted redness around the area. She treated with topical triple antibiotic ointment seemed to resolve without significant issue. May be a source of infectiousetiology. 5. Hb/Hct: 11.5/36.4 improved from yesterday. Blood loss in relation to intraoperative and perioperative blood loss. Currently asymptomatic and improving postoperatively. Continue to monitor symptoms. 6. Hypotension: Some of the patient's home hypertensive medicines have been held. Appreciate medical management 7. Hypoxia: Patient has remained on 2 L oxygen postoperatively. Appreciate medical management. Planned at this time appears to be tube obtain chest x-ray and respiratory panel. Heart rate has remained stable. Slight increase in respirations overnight as well. Medicine is on board. Will await these i nitialresults prior to proceeding with any further workup. 8. Postop constipation: Discussed with patient potential for constipation associate with narcotics.Patient currently on Senokot Disposition: PICC line was placed today. Will await final recommendations from infectious disease and antibiotic regimen well as infectious ease follow-up prior to discharge. Will focus on training patient on PICC line over the weekend. Once we have final antibiotic regimen established patient should be ready for discharge as long as she remains medically stable for the weekend. After discussion with the patient plan will be for discharge home and dependent on patient's ability to manage PICC line and home antibiotic regimen. [facility] Office: 09/15/24818 Cosigner Signature (if applicable): CC: ~ Signed [facility]03-15-2025 Evaluation note* Diagnosis Onset Date Resolution Status Admit Date Depression acute September 14 12:40pm History of reverse total replacement of right shoulder joint acute September 14, 2024 12:40pm Infection and inflammatory reaction due to other internal joint prosthesis, acute September 14 12:40pm Insomnia acute September 14 12:40pm Neuropathy acute September 14 12:40pm Restless legs acute September 14, 2024 12:40pm Hypertension chronic September 14, 2024 12:40pm [facility] Work Phone: 1(495) 548-328903-15-2025 Evaluation note* Diagnosis Onset Date Resolution Status Admit Date Depression acute September 14 12:40pm Neuropathy acute September 14 12:40pm Restless legs acute September 14, 2024 12:40pm Hypertension chronic September 14, 2024 12:40pm History of reverse total replacement of right shoulder joint inactive September 14, 2024 12:40pm Infection and inflammatory reaction due to other internal joint prosthesis, inactive September 14 12:40pm Insomnia inactive September 14 12:40pm Acute respiratory failure wi th hypoxia acute September 18, 2024 12:40pm Debility acute September 18 12:40pm Depression acute September 18 12:40pm Essential (primary) hypertension acute September 18, 2024 12:40pm Infection of prosthetic shoulder joint acute September 18, 2024 12:40pm Neuropathy acute September 18 12:40pm Restless legs acute September 18, 2024 12:40pm Infection and inflammatory reaction due to other internal joint prosthesis, inactive September 18 12:40pm Insomnia inactive September 18 12:40pm [facility] Work Phone: 1(192) 815-810103-15-2025 Progress note Author Emili Lee [facility] Note Date/Time September 14, 2024 12: 34pm [facility] Medical Records Department [address] [place] [address] Progress Note - Hospitalist 09/14/24 0752 MR#: [id number] Acct: [id number] Name: OSCAR WOO Rep #:[id number] : 1950 74 From: Emili Lee MD PCP: Dr. Hernando Grimes MD Status:ADM NATE Location: [place] [address] Reason for Visit Reason for Visit: Diagnoses Depression, unspecified (09/13/24) Restless legs syndrome (09/13/24) Insomnia, unspecified (09/13/24) Polyneuropathy, unspecified (09/13/24) Essential (primary) hypertension (09/13/24) Pain due to internal orthopedic prosthetic devices, implants and grafts, initialencounter (09/13/24) Encounter for other preprocedural examination (09/13/24) Presence of left artificial shoulder joint (09/13/24) Subjective Subjective Patient is sitting up in chair, denies any dizziness, left arm in sling, otherwise no acute complaints, no chest pain or shortness of breath Objective Data Objective Data Vital Signs: Vital Signs Temp Pulse Resp BP Pulse Ox O2 Del Method O2 Flow Rate 98 F 62 18 110/58 L 95 Nasal Cannula 2 09/14/24 06:10 09/14/24 06:10 09/14/24 06:10 09/14/24 06:10 09/14/24 06:10 09/14/24 06:10 09/14/24 06:10 Oxygen Flow Rate (L/min) 2 Oxygen Delivery Method Nasal Cannula Weight: 105.4 kg Body Mass Index (BMI) 36.3 Intake & Output: Intake and Output for Last 24 Hours 09/12/24 09/13/24 09/14/24 23:59 23:59 23:59 Intake Total 2825.5 / 2825.5 585 / 585 Balance 2825.5 / 2825.5 585 / 585 Lab / Micro Data 09/14/24 06:57 09/14/24 06:57 Labs: Laboratory Results - last 24 hr 09/13/24 12:29: POC Glucose 88 09/14/24 06:57: WBC 11.3 H, RBC 3.45 L, Hgb 10.2 L, Hct 32.5 L, MCV 94.2, MCH 29.6, MCHC 31.4 L, RDW Std Deviation 48.3 H, RDW Coeff of Terry 14.0, Plt Count 239, MPV 10.1 Micro: Microbiology 09/11/24 Unknown Fluid - Synovial (joint) Gram Stain - Final 09/11/24 Unknown Fluid - Synovial (joint) Body Fluid Culture - Preliminary Meth. resistant Staph. aureus 09/12/24 08:19 Swab (Method) Nasal Screen MRSA/MSSA - Final Radiography Diagnostic Testing: Radiology Impression Shoulder X-Ray 09/13/24 17:00 IMPRESSION: See above Reading Location: [facility] Physical Exam Narrative General: Alert, oriented, no apparent distress HEENT: Atraumatic, normocephalic Eyes: Anicteric, normal conjunctiva, extraocular movements grossly intact Neck: Supple Respiratory: Clear to auscultation bilaterally, normal respiratory effort Cardiovascular: Regular rate and rhythm GI: Soft, nontender, nondistended Extremities: No edema Musculoskeletal: Left arm in sling Neuro: No overt focal neurological deficits Skin: No rashes appreciated Psych: Cooperative Assessment & Plan Assessment/Plan (1) Hypertension: QUALIFIERS: Hypertension type: unspecified Qualified Code(s): I10- Essential (primary) hypertension PLAN: Plan # Left shoulder periprosthetic joint infection -Status post irrigation debridement with complete synovectomy and revision and left reverse total shoulder replacement by Dr. Cavanaugh 09/13/2024 -Management per primary -Previous fluid culture growing MRSA -Patient on vancomycin -Awaiting IntraOp cultures, preliminary and several growing Staph aureus -ID consult after the weekend, they were contacted prior to surgery and recommended IV vancomycin over the weekend #Hypertension-now hypotension -Patient on amlodipine-this has now been held due to low blood pressure -Indapamide held -Given patient's blood pressure systolic only 84 this a.m., likely due to medications to help with pain and nighttime medications, and that patient is on ketorolac will also hold losartan for now -Add back/adjust blood pressure medications as indicated, currently continue to hold -Patient completely asymptomatic, blood pressure slow to improve could consider gentle IV fluids, no evidence of ongoing blood loss #Depression/anxiety -Continue home medications # Anemia -Hemoglobin 10.2 down from 12.2 on 09/12 -Suspect this is secondary to recent surgical intervention -Repeat in a.m. or sooner if any concerns for ongoing blood loss # Restless leg syndrome -continue patient's home medication regimen #DVT ppx: Timing and discretion per primary Emili Lee MD Time spent in the patient's overall evaluation, decision-making process, review of diagnostic data, adjustment of management, discussion with other providers, nursing and ancillary staff involved in patient's care documentation, 35 Minutes Charges/Coding Visit Charges Inpatient E&M: 53765 [facility] Hosp L2 09/14/24 1234 <Electronically signed by Emili Lee MD> Cosigner Signature (if applicable): CC: ~ Signed [facility] Work Phone: 1(861) 980-451703-15-2025 Progress note [facility] Medical Records Department [address] [place] [address] Progress Note - Hospitalist 09/14/24 0752 MR#: [id number] Acct: [id number] Name: OSCAR WOO Nitesh Rep #:[id number] : 1950 74 From: Emili Lee MD PCP: Dr. Hernando Grimes MD Status:ADM NATE Location: [facility] [id number] Reason for Visit Reason for Visit: Diagnoses Depression, unspecified (09/13/24) Restless legs syndrome (09/13/24) Insomnia, unspecified (09/13/24) Polyneuropathy, unspecified (09/13/24) Essential (primary) hypertension (09/13/24) Pain due to internal orthopedic prosthetic devices, implants and grafts, initialencounter (09/13/24) Encounter for other preprocedural examination (09/13/24) Presence of left artificial shoulder joint (09/13/24) Subjective Subjective Patient is sitting up in chair, denies any dizziness, left arm in sling, otherwise no acute complaints, no chest pain or shortness of breath Objective Data Objective Data Vital Signs: Vital Signs Temp Pulse Resp BP Pulse Ox O2 Del Method O2 Flow Rate 98 F 62 18 110/58 L 95 Nasal Cannula 2 09/14/24 06:10 09/14/24 06:10 09/14/24 06:10 09/14/24 06:10 09/14/24 06:10 09/14/24 06:10 09/14/24 06:10 Oxygen Flow Rate (L/min) 2 Oxygen Delivery Method Nasal Cannula Weight: 105.4 kg Body Mass Index (BMI) 36.3 Intake & Output: Intake and Output for Last 24 Hours 09/12/24 09/13/24 09/14/24 23:59 23:59 23:59 Intake Total 2825.5 / 2825.5 585 / 585 Balance 2825.5 / 2825.5 585 / 585 Lab / Micro Data 09/14/24 06:57 09/14/24 06:57 Labs: Laboratory Results - last 24 hr 09/13/24 12:29: POC Glucose 88 09/14/24 06:57: WBC 11.3 H, RBC 3.45 L, Hgb 10.2 L, Hct 32.5 L, MCV 94.2, MCH 29.6, MCHC 31.4 L, RDW Std Deviation 48.3 H, RDW Coeff of Terry 14.0, Plt Count 239, MPV 10.1 Micro: Microbiology 09/11/24 Unknown Fluid - Synovial (joint) Gram Stain - Final 09/11/24 Unknown Fluid - Synovial (joint) Body Fluid Culture - Preliminary Meth. resistant Staph. aureus 09/12/24 08:19 Swab (Method) Nasal Screen MRSA/MSSA - Final Radiography Diagnostic Testing: Radiology Impression Shoulder X-Ray 09/13/24 17:00 IMPRESSION: See above Reading Location: [facility] Physical Exam Narrative General: Alert, oriented, no apparent distress HEENT: Atraumatic, normocephalic Eyes: Anicteric, normal conjunctiva, extraocular movements grossly intact Neck: Supple Respiratory: Clear to auscultation bilaterally, normal respiratory effort Cardiovascular: Regular rate and rhythm GI: Soft, nontender, nondistended Extremities: No edema Musculoskeletal: Left arm in sling Neuro: No overt focal neurological deficits Skin: No rashes appreciated Psych: Cooperative Assessment & Plan Assessment/Plan (1) Hypertension: QUALIFIERS: Hypertension type: unspecified Qualified Code(s): I10- Essential (primary) hypertension PLAN: Plan # Left shoulder periprosthetic joint infection -Status post irrigation debridement with complete synovectomy and revision and left reverse total shoulder replacement by Dr. Cavanaugh 09/13/2024 -Management per primary -Previous fluid culture growing MRSA -Patient on vancomycin -Awaiting IntraOp cultures, preliminary and several growing Staph aureus -ID consult after the weekend, they were contacted prior to surgery and recommended IV vancomycin over the weekend #Hypertension-now hypotension -Patient on amlodipine-this has now been held due to low blood pressure -Indapamide held -Given patient's blood pressure systolic only 84 this a.m., likely due to medications to help with pain and nighttime medications, and that patient is on ketorolac will also hold losartan for now -Add back/adjust blood pressure medications as indicated, currently continue to hold -Patient completely asymptomatic, blood pressure slow to improve could consider gentle IV fluids, no evidence of ongoing blood loss #Depression/anxiety -Continue home medications # Anemia -Hemoglobin 10.2 down from 12.2 on 09/12 -Suspect this is secondary to recent surgical intervention -Repeat in a.m. or sooner if any concerns for ongoing blood loss # Restless leg syndrome -continue patient's home medication regimen #DVT ppx: Timing and discretion per primary Emili Lee, MD Time spent in the patient's overall evaluation, decision-making process, review of diagnostic data,adjustment of management, discussion with other providers, nursing and ancillary staff involved in patient's care documentation, 35 Minutes Charges/Coding Visit Charges Inpatient E&M: 74626 Subs Hosp L2 09/14/24 1234 Cosigner Signature (if applicable): CC: ~ Signed [facility]03-15-2025 Progress note Author Fahad Cavanaugh [facility] Note Date/Time September 14, 2024 8:4 8am [facility] Medical Records Department [address] [place] [address] Progress Note - Orthopedic 09/14/24 0831 MR#: [id number] Acct: [id number] Name: OSCAR WOO Rep #:[id number] : 1950 74 From: Fahad Chi PCP: Dr. Hernando Grimes MD Status:ADM NATE Location: [place] [address] Subjective Subjective Patient is doing well overall. She denies any chest pain or shortness of breath. She denies any dizziness with standing up. She denies any difficultiesgetting from bed to chair. She is sitting in the chair comfortably. She deniesany numbness and tingling in the extremity. She reports improvements in her pain. Potenza preoperatively blood pressures overnight have primarily been in the 110s over 50-60. Nurse was taking blood pressure this morning machine did show 80/50ish on the forearm. Currently being retaken manually. Patient does not report any significant symptoms at this time. Again remains comfortable. Medical services on consultation for management of medical issues. Last recorded blood pressure 110/58. Patient did mention to me today that she had previously experienced blistering associated with a heating pad on her ankle likely some second-degree skin olivares. Patient does note open areas on the skin. Seem to be resolved at this time. Treated with topical antibiotic ointments. Objective Data Objective Data Vital Signs: Vital Signs Temp Pulse Resp BP Pulse Ox O2 Del Method O2 Flow Rate 98 F 62 18 110/58 L 95 Nasal Cannula 2 09/14/24 06:10 09/14/24 06:10 09/14/24 06:10 09/14/24 06:10 09/14/24 06:10 09/14/24 06:10 09/14/24 06:10 Oxygen Flow Rate (L/min) 2 Oxygen Delivery Method Nasal Cannula Weight: 232 lb 5.875 oz Body Mass Index (BMI) 36.3 Intake & Output: Intake and Output for Last 24 Hours 09/12/24 09/13/24 09/14/24 23:59 23:59 23:59 Intake Total 2825.5 / 2825.5 585 / 585 Balance 2825.5 / 2825.5 585 / 585 Lab / Micro Data 09/14/24 06:57 09/11/24 11:21 Labs: Laboratory Results - last 24 hr 09/13/24 12:29: POC Glucose 88 09/14/24 06:57: WBC 11.3 H, RBC 3.45 L, Hgb 10.2 L, Hct 32.5 L, MCV 94.2, MCH 29.6, MCHC 31.4 L, RDW Std Deviation 48.3 H, RDW Coeff of Terry 14.0, Plt Count 239, MPV 10.1 Micro: Microbiology 09/11/24 Unknown Fluid - Synovial (joint) Gram Stain - Final 09/11/24 Unknown Fluid - Synovial (joint) Body Fluid Culture - Preliminary Meth. resistant Staph. aureus 09/12/24 08:19 Swab (Method) Nasal Screen MRSA/MSSA - Final Radiography Diagnostic Testing: Radiology Impression Shoulder X-Ray 09/13/24 17:00 IMPRESSION: See above Reading [facility] [place] Physical Exam Narrative Left upper extremity: Dressing is clean dry intact. Minimal erythema. Sensations intact light touch axillary/R/M/U distally. Motor is intact R/M/U distally. 2+ radial pulse. Arm is in sling. Remainder of exam deferred secondary to pain and postoperative state. Const alert, oriented x3 and no apparent distress Assessment & Plan Assessment/Plan (1) Infection and inflammatory reaction due to other internal joint prosthesis, initial encounter: (2) History of reverse total replacement of right shoulder joint: PLAN: Postop day 1 irrigation debridement, synovectomy and revision left shoulder replacement interchangeable parts 1. Pain control: Patient requiring 1 oxycodone tablet at a time and Tylenol as scheduled. Continue current regimen hold narcotics were appropriate for hypotension 2. DVT prophylaxis: Aspirin 81 mg p.o. twice daily 3. Therapy: PT OT work on ADLs and gentle range of motion exercises follow total shoulder protocol 4. Infectious disease: Infectious disease will not be on service over the weekend. I did speak with them before surgery yesterday. Recommended vancomycin IV over the weekend. Patient's sensitivities have returned currentlyhas MRSA from aspirate obtained September 11. Will follow cultures from intraoperatively. PICC line ordered. Currently, awaiting patient's BMP results. Pharmacology on consultation for antibiotic dosing of vancomycin. Blood cultures obtained before antibiotics administered yesterday awaiting results. Patient does note that she recently did have some blisters associated with using a heat pad on her feet. She noted redness around the area. She treated with topical triple antibiotic ointment seemed to resolve without significant issue. May be a source of infectious etiology. 5. Hb/Hct: 10.2/32.5 slightly decreased from preoperative hemoglobin of 12.2. Blood loss in relation to intraoperative and perioperative blood loss. Currently asymptomatic. Continue to monitor symptoms. 6. Hypotension: Patient presented to the hospital yesterday with hypotension manage intraoperatively. Remained stable overnight. Currently asymptomatic. Will continue to monitor. Medicine service may need to adjust hypertension medications recently started by PCP. 7. Postop constipation: Discussed with patient potential for constipation associate with narcotics. Patient currently on Senokot Disposition: PICC line was placed today. Will await final recommendations from infectious disease and antibiotic regimen well as infectious ease follow-up prior to discharge. Will focus on training patient on PICC line over the weekend. Once we have final antibiotic regimen established patient should be ready for discharge as long as she remains medically stable for the weekend. After discussion with the patient plan will be for discharge home and dependent on patient's ability to manage PICC line and home antibiotic regimen. [facility] Office: 09/14/24 0848 <Electronically signed by Fahad Cavanaugh MD> Cosigner Signature (if applicable): CC: ~ Signed [facility] Work Phone: [phone]) [phone] Progress note Author Abdirashid Carrasquillo [facility] Note Date/Time September 14, 2024 6:5 7am [facility] Medical Records Department [address] [place] [address] Progress Note - Hospitalist 09/13/241957 MR#: [id number] Acct: [id number] Name: OSCAR WOO Rep #:[id number] : 1950 74 From: Abdirashid Lloyd DO PCP: Dr. Hernando Grimes MD Status:ADM NATE Location: [place] [address] Reason for Visit Reason for Visit: Diagnoses Essential (primary) hypertension (09/13/24) Pain due to internal orthopedic prosthetic devices, implants and grafts, initialencounter (09/13/24) Encounter for other preprocedural examination (09/13/24) Presence of left artificial shoulder joint (09/13/24) Subjective Subjective Orthopedic consult for medical management placed shortly after patient arrived to third floor. She is postoperative day 0 after Left shoulder periprosthetic joint infection; s/p irrigation debridement with complete synovectomy and revision and Left reverse total shoulder replacement revision by Dr. Cavanaugh of orthopedic surgery. Her nerve block is still active at this time so she has minimal discomfort at this time. A review of her current medications versus herhome medication shows that most of her her home medications have yet to be restarted. She denies current complaints with normal vital signs and there are no active medical issues to address otherwise. Objective Data Objective Data Vital Signs: Vital Signs Temp Pulse Resp BP Pulse Ox O2 Del Method O2 Flow Rate 97.3 F L 79 18 116/70 95 Nasal Cannula 4 09/13/24 18:26 09/13/24 18:26 09/13/24 18:26 09/13/24 18:26 09/13/24 18:26 09/13/24 18:26 09/13/24 18:26 Oxygen Flow Rate (L/min) 4 Oxygen Delivery Method Nasal Cannula Weight: 232 lb 5.875 oz Body Mass Index (BMI) 36.3 Intake & Output: Intake and Output for Last 24 Hours 09/11/24 09/12/24 09/13/24 23:59 23:59 23:59 Intake Total 2775.5 / 2775.5 Balance 2775.5 / 2775.5 Lab / Micro Data Attestation: I reviewed the patient's lab results. 09/12/24 08:19 09/11/24 11:21 Labs: Laboratory Results - last 24 hr 09/13/24 12:29: POC Glucose 88 Micro: Microbiology 09/12/24 08:19 Swab (Method) Nasal Screen MRSA/MSSA - Final 09/11/24 Unknown Fluid - Synovial (joint) Gram Stain - Final 09/11/24 Unknown Fluid - Synovial (joint) Body Fluid Culture - Preliminary Staphylococcus aureus 09/11/24 Unknown Fluid - Synovial (joint) Anaerobic Culture - Preliminary Radiography Diagnostic Testing: Radiology Impression Shoulder X-Ray 09/13/24 17:00 IMPRESSION: See above Reading Location: [facility] Physical Exam Const alert, oriented x3 and no apparent distress Constitutional Narrative: Obese. HEENT normocephalic, head/scalp atraumatic and hearing grossly normal bilaterally Head and Scalp: normal to inspection, normocephalic and atraumatic Eyes PERRL, EOMs intact bilaterally, conjunctivae normal and no scleral icterus Neck full ROM and no lymphadenopathy Lymph Lymphatic: no lymphadenopathy noted and no lymphedema noted Chest inspection of chest normal, palpation of chest normal, inspection of breasts normal and palpation of breasts normal Resp normal respiratory effort and normal air movement Cardio regular rate and regular rhythm GI normal to inspection, nondistended, normoactive bowel sounds, soft to palpation,non-tender and non-distended GI Narrative: Obese. Extremity Extremity Narrative: Left shoulder wrappings in place. Skin no rashes or lesions noted Neuro oriented x3, CN's II-XII intact bilaterally, moves all extremities and no focal motor deficits Psych mental status grossly normal, thought process normal, cooperative and affect normal Assessment & Plan Assessment/Plan (1) Hypertension: QUALIFIERS: Hypertension type: unspecified Qualified Code(s): I10- Essential (primary) hypertension (2) Depression: QUALIFIERS: Depression Type: unspecified Qualified Code(s): F32.A- Depression, unspecified (3) Neuropathy: (4) Restless legs: (5) Insomnia: QUALIFIERS: Insomnia type: unspecified Qualified Code(s): G47.00 - Insomnia, unspecified PLAN: Plan 1. POD; 0 after Left shoulder periprosthetic joint infection; s/p irrigation debridement with complete synovectomy and revision and left reverse total shoulder replacement revision by Dr. Cavanaugh of orthopedic surgery - Continue current therapy ordered by orthopod. Patient has no active medical issues to address other than restarting her home medications which has been done since it was not done by admitting physician. Routine labs already pending in AM. 2. Essential Hypertension - Restart amlodipine and losartan as previous but hold indapamide for now. 3. Depression - Restart bupropion, duloxetine and mirtazapine as before. 4. Neuropathy - Resume gabapentin according to prior schedule. 5. RLS - Restart pramipexole q. HS. 6. Insomnia - Continue melatonin q. HS. 7. DVT prophylaxis - As per orthopedist. Total time: Approximately (but not less than) 35 minutes. 09/14/24 0657 <Electronically signed by Abdirashid Garcia DO> Cosigner Signature (if applicable): CC: ~ Signed [facility] Work Phone: [phone] 105-200403-15-2025 Progress note [facility] Medical Records Department [address] [place] [address] Progress Note - Orthopedic 09/14/24 0831 MR#: [id number] Acct: [id number] Name: OSCAR WOO Rep #:[id number] : 1950 74 From: Fahad Chi PCP: Dr. Hernando Grimes MD Status:ADM [facility] Location: [place] [address] Subjective Subjective Patient is doing well overall. She denies any chest pain or shortness of breath. She denies any dizziness with standing up. She denies any difficultiesgetting from bed to chair. She is sitting in thechair comfortably. She deniesany numbness and tingling in the extremity. She reports improvements in her pain. Potenza preoperatively blood pressures overnight have primarily been in the 110s over 50-60. Nurse was taking blood pressure this morning machine did show 80/50ish on the forearm. Currently being retaken manually. Patient does not report any significant symptoms at this time. Again remains comfortable. Medical services on consultation for management of medical issues. Last recorded blood pressure 110/58. Patient did mention to me today that she had previously experienced blistering associated with a heating pad on her ankle likely some second-degree skin olivares. Patient does note open areas on the skin. Seem to be resolved at this time. Treated with topical antibiotic ointments. Objective Data Objective Data Vital Signs: Vital Signs Temp Pulse Resp BP Pulse Ox O2 Del Method O2 Flow Rate 98 F 62 18 110/58 L 95 Nasal Cannula 2 09/14/24 06:10 09/14/24 06:10 09/14/24 06:10 09/14/24 06:10 09/14/24 06:10 09/14/24 06:10 09/14/24 06:10 Oxygen Flow Rate (L/min) 2 Oxygen Delivery Method Nasal Cannula Weight: 232 lb 5.875 oz Body Mass Index (BMI) 36.3 Intake & Output: Intake and Output for Last 24 Hours 09/12/24 09/13/24 09/14/24 23:59 23:59 23:59 Intake Total 2825.5 / 2825.5 585 / 585 Balance 2825.5 / 2825.5 585 / 585 Lab / Micro Data 09/14/24 06:57 09/11/24 11:21 Labs: Laboratory Results - last 24 hr 09/13/24 12:29: POC Glucose 88 09/14/24 06:57: WBC 11.3 H, RBC 3.45 L, Hgb 10.2 L, Hct 32.5 L, MCV 94.2, MCH 29.6, MCHC 31.4 L, RDW Std Deviation 48.3 H, RDW Coeff of Terry 14.0, Plt Count 239, MPV 10.1 Micro: Microbiology 09/11/24 Unknown Fluid - Synovial (joint) Gram Stain - Final 09/11/24 Unknown Fluid - Synovial (joint) Body Fluid Culture - Preliminary Meth. resistant Staph. aureus 09/12/24 08:19 Swab (Method) Nasal Screen MRSA/MSSA - Final Radiography Diagnostic Testing: Radiology Impression Shoulder X-Ray 09/13/24 17:00 IMPRESSION: See above Reading Location: [facility] Physical Exam Narrative Left upper extremity: Dressing is clean dry intact. Minimal erythema. Sensations intact light touchaxillary/R/M/U distally. Motor is intact R/M/U distally. 2+ radial pulse. Arm is in sling. Remainder of exam deferred secondary to pain and postoperative state. Const alert, oriented x3 and no apparent distress Assessment & Plan Assessment/Plan (1) Infection and inflammatory reaction due to other internal joint prosthesis, initial encounter: (2) History of reverse total replacement of right shoulder joint: PLAN: Postop day 1 irrigation debridement, synovectomy and revision left shoulder replacement interchangeable parts 1. Pain control: Patient requiring 1 oxycodone tablet at a time and Tylenol as scheduled. Continue current regimen hold narcotics were appropriate for hypotension 2. DVT prophylaxis: Aspirin 81 mg p.o. twice daily 3. Therapy: PT OT work on ADLs and gentle range of motion exercises follow total shoulder protocol 4. Infectious disease: Infectious disease will not be on service over the weekend. I did speak withthem before surgery yesterday. Recommended vancomycin IV over the weekend. Patient's sensitivities have returned currentlyhas MRSA from aspirate obtained September 11. Will follow cultures from intraoperatively. PICC line ordered. Currently, awaiting patient's BMP results. Pharmacology on consultation for antibiotic dosing of vancomycin. Blood cultures obtained before antibiotics administered yesterday awaiting results. Patient does note that she recently did have some blisters associated with using a heat pad on her feet. She noted redness around the area. She treated with topical triple antibiotic ointment seemed to resolve without significant issue. May be a source of infectious etiology. 5. Hb/Hct: 10.2/32.5 slightly decreased from preoperative hemoglobin of 12.2. Blood loss in relation to intraoperative and perioperative blood loss. Currently asymptomatic. Continue to monitor symptoms. 6. Hypotension: Patient presented to the hospital yesterday with hypotension manage intraoperatively. Remained stable overnight. Currently asymptomatic. Will continue to monitor. Medicine service mayneed to adjust hypertension medications recently started by PCP. 7. Postop constipation: Discussed with patient potential for constipation associate with narcotics.Patient currently on Senokot Disposition: PICC line was placed today. Will await final recommendations from infectious disease and antibiotic regimen well as infectious ease follow-up prior to discharge. Will focus on training patient on PICC line over the weekend. Once we have final antibiotic regimen established patient should be ready for discharge as long as she remains medically stable for the weekend. After discussion with the patient plan will be for discharge home and dependent on patient's ability to manage PICC line and home antibiotic regimen. [facility] Office: 09/14/24 0848 Cosigner Signature (if applicable): CC: ~ Signed [facility]03-15-2025 Procedure note [facility] Medical Records Department [address] [place] [address] Operative Report 09/13/24 1620 MR#: [id number] Acct: [id number] Name: OSCAR WOO Rep #:[id number] : 1950 74 From: Fahad Chi PCP: Dr. 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: Yes Concierge: Odilon Pickett Tasks completed by training program assistant: Other (See body of operative report) Additionalassistant?: No Type of Anesthesia: General RN Documented Start/Stop Times: Operation Date: 09/13/24 13:30 Case Time Into Pre-Op 09/13/24 11:38 Anesthesia Start 09/13/24 14:13 Into Room 09/13/24 14:13 Procedure Start 09/13/24 15:09 Procedure End 09/13/24 16:48 Anesthesia End 09/13/24 16:58 Out of Room 09/13/24 16:58 Into Recovery 09/13/24 17:03 Out of Recovery 09/13/24 18:05 Procedure Start Time: 15:09 Procedure Stop Time: 16:48 Select all DRAINS/GRAFTS/IMPLANTS that apply: Prosthetic device Prosthetic device details: ExacTechtotal shoulder 42 mm glenosphere, 42 mm +0 mm polyethylene, 42 mm humeral baseplate Special Medications: Cleocin and vancomycin were given after blood cultures wereobtained. Estimated Blood Loss: 150 ml Fluids Replaced: 2000 mL crystalloid Specimen collected: Yes Description of specimen(s) removed: 3 separate specimenswere sent to microbiology Description of surgery: On the date of the surgery patient was seen and evaluated in the preoperative area. Case was discussed with infectious disease who recommended we obtain blood cultures. Patient was signed on the leftshoulder in the preoperative area. They were then taken back to the operating room where their transfer the table in the supine position. Anesthesia did address patient's hypotension. Based on the inf ection we did elect to proceed with surgery as this may be causing some of her hypotension. Anesthesia assumed control of the C-spine and airway and remained in control throughout the remainder the procedure. Anesthesia administered anesthetic and patient was positioned in the beachchair position with all bony prominences identified and well-padded and the head secured beachchair table. Once patient was adequately positioned left upper extremity was prepped in a sterile fashion while the surgeon scrubbed. Upon entering the room the left upper extremity was then draped in the sterilefashion, incision was marked out and timeout was called. Upon agreed upon the side, the site, the procedure to be performed, patient's identity and antibiotics given. Incision was taken downthrough skin subtenons tissue fat down the fascia. Once we got to the fascia weobtained hemostasis. We then were able to identify the cephalic vein and the deltopectoral interval. This was bluntly dissected once we are able to do this deltoid retractor was placed underneath the deltoid. Makenzie retractor was then placed in the wound and the arthrotomy was made. Once we made the arthrotomy gross purulent fluid copious amounts of it were suctioned from the joint. Once was done the humerus was released anteriorly so that we get dislocated and the she 1 was placed into the joint and the humerus was dislocated. The polyethylene was removed. Membrane was taken from behind the polyethylene. Thebaseplate was r emoved and membrane was taken from this. Posterior synovium was removed and sent for culture as well. Once was done the humerus was retracted out of the way further synovectomy was performed. We thenremove the screw fromthe glenosphere and the glenosphere was dissociated from the baseplate. Once was done the Screws were removed from the baseplate. Membrane was also removed and the baseplate separate culture. Wound was further debrided of any synovectomy however inferior portion where there is significant neurovascular structures was carefully treated. Once a synovectomy was completed the wound iscopiously irrigated out with 6 L normal saline under low-pressure lavage. We then irrigated outthe joint with pulse lavage further to do any further debris. Any further debris was removed. Implants were opened on the back table. 42 mmglenosphere was then put into place screw was tightened thiswas done after replacing the 4 Screws with new Screws. Once this was tightened down and secured it was tested. We then exposed the humerus humeral baseplate was screwed into place with torque limiting screw. Polyethylene was impacted into place. Shoulder was reduced. Shoulder was taken through range of motion remained stable. There was not good the anterior tissue to repair at this time. A diluteBetadine lavage was performed for 3 minutes followed by Irrisept lavage. The deltopectoral interval was tagged with 4 Surgilon sutures and then run with #1 Vicryl. Deep layer was closed #1 Vicryl. Skin layer was closed with 2-0 Vicryl final skin closure was done with strata fix and nylon sutures. Sterile dressing was placed over the wound. Left upper extremities and placed in a sling. Patient wasawakened by anesthesia and transferred back to recoveryin stable condition. During the course of the procedure the physician greenskeeper (PE) played a vital role. Their intimate knowledge of my steps in the procedure aided in safe and expedient completion of the procedure. The PE played a vital rolls in positioning particularly in obtaining the appropriate beach chair position and securing the patient's body and head to the table. The PE was also vital in theretraction of soft tissues during the exposure and especially the glenoid work as this is a vital part of the procedure to prevent neurovascular damage. the PE was also vital and protecting soft tissues during timesof bony cuts and reaming. He also played a vital role in closure with my direct supervision. The PEwas also important during reduction and dislocation of the joint and trials intraoperatively. Postop plan: Patient will be weightbearing as tolerated. Will follow standard reverse total shoulder recovery protocol. Patient will receive IV vancomycin through the weekend as we follow cultures. Infectious disease will consult with the patienton Monday when they are back on service. Patient will need PICC line and IV antibiotics. Aspirin 81 mg p.o. twice daily for DVT prophylaxis. Surgical Findings: Gross purulence was encountered upon entering the joint. Synovectomy was performed. Interchangeableparts were removed and replaced. Complications Complications: No Admit VTE Documentation VTE Present on Admission: No VTE Mechan Device Prophylaxis: SCD's and Thigh High ELEAZAR Hose VTE Pharm Prophylaxis ordered?: Yes 09/14/24 0819 Cosigner Signature (if applicable): CC: Dr. Hernando Grimes MD; Dr. Emili Lee MD; Dr. Fahad Cavanaugh MD~ Signed [facility]03-15-2025 Progress note [facility] Medical Records Department [address] [place] [address] Progress Note - Hospitalist 09/13/241957 MR#: [id number] Acct: [id number] Name: OSCAR WOO Rep #:[id number] : 1950 74 From: Abdirashid Lloyd DO PCP: Dr. Hernando Grimes MD Status:ADM NATE Location: [place] [id number] Reason for Visit Reason for Visit: Diagnoses Essential (primary) hypertension (09/13/24) Pain due to internal orthopedic prosthetic devices, implants and grafts, initialencounter (09/13/24) Encounter for other preprocedural examination (09/13/24) Presence of left artificial shoulder joint (09/13/24) Subjective Subjective Orthopedic consult for medical management placed shortly after patient arrived to third floor. She is postoperative day 0 after Left shoulder periprosthetic joint infection; s/p irrigation debridement with complete synovectomy and revision and Left reverse total shoulder replacement revision by of orthopedic surgery. Her nerve block is still active at this time so she has minimal discomfort at this time. A review of her current medications versus herhome medication shows that most ofher her home medications have yet to be restarted. She denies current complaints with normal vital signs and there are no active medical issues to address otherwise. Objective Data Objective Data Vital Signs: Vital Signs Temp Pulse Resp BP Pulse Ox O2 Del Method O2 Flow Rate 97.3 F L 79 18 116/70 95 Nasal Cannula 4 09/13/24 18:26 09/13/24 18:26 09/13/24 18:26 09/13/24 18:26 09/13/24 18:26 09/13/24 18:26 09/13/24 18:26 Oxygen Flow Rate (L/min) 4 Oxygen Delivery Method Nasal Cannula Weight: 232 lb 5.875 oz Body Mass Index (BMI) 36.3 Intake & Output: Intake and Output for Last 24 Hours 09/11/24 09/12/24 09/13/24 23:59 23:59 23:59 Intake Total 2775.5 / 2775.5 Balance 2775.5 / 2775.5 Lab / Micro Data Attestation: I reviewed the patient's lab results. 09/12/24 08:19 09/11/24 11:21 Labs: Laboratory Results - last 24 hr 09/13/24 12:29: POC Glucose 88 Micro: Microbiology 09/12/24 08:19 Swab (Method) Nasal Screen MRSA/MSSA - Final 09/11/24 Unknown Fluid - Synovial (joint) Gram Stain - Final 09/11/24 Unknown Fluid - Synovial (joint) Body Fluid Culture - Preliminary Staphylococcus aureus 09/11/24 Unknown Fluid - Synovial (joint) Anaerobic Culture - Preliminary Radiography Diagnostic Testing: Radiology Impression Shoulder X-Ray 09/13/24 17:00 IMPRESSION: See above Reading Location: [facility] Physical Exam Const alert, oriented x3 and no apparent distress Constitutional Narrative: Obese. HEENT normocephalic, head/scalp atraumatic and hearing grossly normal bilaterally Head and Scalp: normal to inspection, normocephalic and atraumatic Eyes PERRL, EOMs intact bilaterally, conjunctivae normal and no scleral icterus Neck full ROM and no lymphadenopathy Lymph Lymphatic: no lymphadenopathy noted and no lymphedema noted Chest inspection of chest normal, palpation of chest normal, inspection of breasts normal and palpation of breasts normal Resp normal respiratory effort and normal air movement Cardio regular rate and regular rhythm GI normal to inspection, nondistended, normoactive bowel sounds, soft to palpation,non-tender and non-distended GI Narrative: Obese. Extremity Extremity Narrative: Left shoulder wrappings in place. Skin no rashes or lesions noted Neuro oriented x3, CN's II-XII intact bilaterally, moves all extremities and no focal motor deficits Psych mental status grossly normal, thought process normal, cooperative and affect normal Assessment & Plan Assessment/Plan (1) Hypertension: QUALIFIERS: Hypertension type: unspecified Qualified Code(s): I10- Essential (primary) hypertension (2) Depression: QUALIFIERS: Depression Type: unspecified Qualified Code(s): F32.A- Depression, unspecified (3) Neuropathy: (4) Restless legs: (5) Insomnia: QUALIFIERS: Insomnia type: unspecified Qualified Code(s): G47.00 - Insomnia, unspecified PLAN: Plan 1. POD; 0 after Left shoulder periprosthetic joint infection; s/p irrigation debridement with complete synovectomy and revision and left reverse total shoulder replacement revision by Dr. Cavanaugh of orthopedic surgery - Continue current therapy ordered by orthopod. Patient has no active medical issues to address other than restarting her home medications which has been done since it was not done by admitting physician. Routine labs already pending in AM. 2. Essential Hypertension - Restart amlodipine and losartan as previous but hold indapamide for now. 3. Depression - Restart bupropion, duloxetine and mirtazapine as before. 4. Neuropathy - Resume gabapentin according to prior schedule. 5. RLS - Restart pramipexole q. HS. 6. Insomnia - Continue melatonin q. HS. 7. DVT prophylaxis - As per orthopedist. Total time: Approximately (but not less than) 35 minutes. 09/14/24 0657 Cosigner Signature (if applicable): CC: ~ Signed [facility]03-14-2025 Consult note Author Mercedes Patel [facility] Note Date/Time September 13, 2024 7:[facility] [address] [place] [address] Pharmacokinetic/Renal -Consult 09/13/241932 MR#: [id number] Acct: [id number] Name: OSCAR WOO Rep #:[id number] : 1950 74 From: Mercedes Patel PCP: Dr. Hernando Grimes MD Status:ADM NATE Y Location: [place] [address] Consult Antibiotic Management Pharmacy has been consulted to manage selected antibiotic: Vancomycin Type of Intervention Type of Consult: New start Suspected Infection Suspected Infection: Other Labs Labs: Sodium 137 mmol/L (133-145) 09/11/24 11:21 Potassium 3.3 mmol/L (3.3-5.1) 09/11/24 11:21 Chloride 96 mmol/L (98-108) L 09/11/24 11:21 Carbon Dioxide 31.1 mmol/L (21.0-32.0) 09/11/24 11:21 Anion Gap 11 (5-15) 09/11/24 11:21 BUN 29 mg/dL (4-19) H 09/11/24 11:21 Creatinine 1.01 mg/dL (0.70-1.20) 09/11/24 11:21 Est GFR (MDRD) Non-Af 58 (>60) L 09/11/24 11:21 BUN/Creatinine Ratio 28.5 RATIO (10-20) H 09/11/24 11:21 Glucose 105 mg/dL (70-99) H 09/11/24 11:21 Microbiology Microbiology: Microbiology 09/12/24 08:19 Swab (Method) Nasal Screen MRSA/MSSA - Final 09/11/24 Unknown Fluid - Synovial (joint) Gram Stain - Final 09/11/24 Unknown Fluid - Synovial (joint) Body Fluid Culture - Preliminary Staphylococcus aureus 09/11/24 Unknown Fluid - Synovial (joint) Anaerobic Culture - Preliminary Dosing Weight Weight used for dosin.4 kg Estimated Creatinine Clearance Estimated Creatinine Clearance: 80.1 mL/mi Goal Trough Goal Trough: 15-20 mcg/mL Pharmacy Plan for Drug Dosing Pharmacy Plan for Drug Dosing: NEW START IV VANCOMYCIN Consulting Physician: Indication: Prophylaxis / Post-op Goal Trough: 15-20 SrCr: 1.01 mg/mL CrCl: 80.1 mL/min Comments: Patient received dose pre-op 1500mg, will consider first dose. Vancomycin Dose: 1750mg q12h Pending Level: 09/15/2024129 Pharmacy Service will continue to monitor and adjust dosing as required. Follow-Up Labs Follow-Up Labs: Trough: Vancomycin Date/Time Labs Ordered Labs to be done on [date and time ordered]: 09/15/202412909/13/241940 <Electronically signed by Mercedes hernandez> Date _ Mercedes Herndon Signature (if applicable): Date CC: ~ Signed [facility] Work Phone: 1(656) 474-663703-14-2025 Consult note Author Omar Walters [facility] Note Date/Time September 13, 2024 7:1 0pm [facility] Medical Records Department [address] [place] [address] Anesthesia Postop Eval II 09/13/241909 MR#: [id number] Acct: [id number] Name: OSCAR WOO Rep #:[id number] : 1950 74 From: Omar Walters MD PCP: Dr. Hernando Grimes MD Status:ADM NATE Y Race: C Location: [place] [address] Anesthesia Postop Eval I Sum Postop Eval Completion status Anesthesia document: Postop Eval 1 completed: Yes Anesthesia Postop Eval I Summary Anesthesia Postop Eval I Summary: Anesthesia Postop Eval I: Assessment Summary Airway patent Yes 09/13/24 17:12 [email or web address] Spontaneous unlabored Yes 09/13/24 17:12 [email or web address] [email or web address] respirations Mental status Calm 09/13/24 17:12 [email or web address] [email or web address] nausea No 09/13/24 17:12 [email or web address] Vomiting No 09/13/24 17:12 [email or web address] [email or web address] Anesthesia Postop Eval I: Fluid Summary Crystalloid volume administer 2,000 09/13/24 17:12 NAVAL [email or web address] (ml) Colloids volume administered ( ml) Blood Product volume administered (ml) Total IV fluid infused 2,000 09/13/24 17:12 [email or web address] Anesthesia Postop Eval I: Summary Notes Anesthesia Complication No 09/13/24 17:12 [email or web address] Anesthesia Complication Comment: Post-operative progress note Anesthesia: Postop Eval II Evaluation Mental status: Awake Pain Level: 1 nausea: No Vomiting: No 09/13/241909 <Electronically signed by Omar Walters MD > Date _ Omra Walters MD Cosigner Signature: Date CC: ~ Signed [facility] Work Phone: 1(298) 543-853403-14-2025 Consult note [facility] Medical Records Department [address] [place] [address] Pharmacokinetic/Renal -Consult 09/13/241932 MR#: [id number] Acct: [id number] Name: OSCAR WOO Rep #:[id number] : 1950 74 From: Mercedes Patel PCP: Dr. Hernando Grimes MD Status:ADM NATE Y Location: [place] [address] Consult Antibiotic Management Pharmacy has been consulted to manage selected antibiotic: Vancomycin Type of Intervention Type of Consult: New start Suspected Infection Suspected Infection: Other Labs Labs: Sodium 137 mmol/L (133-145) 09/11/24 11:21 Potassium 3.3 mmol/L (3.3-5.1) 09/11/24 11:21 Chloride 96 mmol/L (98-108) L 09/11/24 11:21 Carbon Dioxide 31.1 mmol/L (21.0-32.0) 09/11/24 11:21 Anion Gap 11 (5-15) 09/11/24 11:21 BUN 29 mg/dL (4-19) H 09/11/24 11:21 Creatinine 1.01 mg/dL (0.70-1.20) 09/11/24 11:21 Est GFR (MDRD) Non-Af 58 (>60) L 09/11/24 11:21 BUN/Creatinine Ratio 28.5 RATIO (10-20) H 09/11/24 11:21 Glucose 105 mg/dL (70-99) H 09/11/24 11:21 Microbiology Microbiology: Microbiology 09/12/24 08:19 Swab (Method) Nasal Screen MRSA/MSSA - Final 09/11/24 Unknown Fluid - Synovial (joint) Gram Stain - Final 09/11/24 Unknown Fluid - Synovial (joint) Body Fluid Culture - Preliminary Staphylococcus aureus 09/11/24 Unknown Fluid - Synovial (joint) Anaerobic Culture - Preliminary Dosing Weight Weight used for dosin.4 kg Estimated Creatinine Clearance Estimated Creatinine Clearance: 80.1 mL/mi Goal Trough Goal Trough: 15-20 mcg/mL Pharmacy Plan for Drug Dosing Pharmacy Plan for Drug Dosing: NEW START IV VANCOMYCIN Consulting Physician: Indication: Prophylaxis / Post-op Goal Trough: 15-20 SrCr: 1.01 mg/mL CrCl: 80.1 mL/min Comments: Patient received dose pre-op 1500mg, will consider first dose. Vancomycin Dose: 1750mg q12h Pending Level: 09/15/2024129 Pharmacy Service will continue to monitor and adjust dosing as required. Follow-Up Labs Follow-Up Labs: Trough: Vancomycin Date/Time Labs Ordered Labs to be done on [date and time ordered]: 09/15/202412909/13/241940 ey> Date _ Mercedes Herndon Signature (if applicable): Date CC: ~ Signed [facility]03-14-2025 Consult note Author Doug Mcdougal [facility] Note Date/Time September 13, 2024 5:[facility] [address] [facility] [place] [address] Anesthesia Postop Eval I 09/13/24 1711 MR#: [id number] Acct: [id number] Name: ABELOSCAR E Rep #:[id number] : 1950 74 From: Doug DUENAS PCP: Dr. Hernando Grimes MD Status:ADM NATE Y Race: C Location: [place] [address] Anesthesia: Postop Eval I Current Vital Signs Temperature: 97 F Pulse Rate: 80 Blood Pressure: 114/75 Respiratory Rate: 22 Pulse Ox: 95 Oxygen Delivery Method: Non-Rebreather Oxygen Flow Rate (L/min): 10 Assessment Airway patent: Yes Spontaneous unlabored respirations: Yes Mental status: Calm nausea: No Vomiting: No Anesthesia Complication: No Fluid Hydration Crystalloid volume administer (ml): 2,000 Total IV fluid infused: 2,000 Progress Note Anesthesia document: Postop Eval 1 completed: Yes 09/13/24 1712 <Electronically signed by Doug Urias CRNA> Date _ Doug Urias CRNA Cosigner Signature: Date CC: ~ Signed [facility] Work Phone: [phone]) 243-882503-14-2025 Consult note [facility] Medical Records Department [address] [facility] [place] [address] Anesthesia Postop Eval II 09/13/24 1910 MR#: [id number] Acct: [id number] Name: OSCAR WOO Rep #:[id number] : 1950 74 From: Omar Walters MD PCP: Dr. Heranndo Grimes MD Status:ADM NATE Y Race: C Location: [place] [address] Anesthesia Postop Eval I Sum Postop Eval Completion status Anesthesia document: Postop Eval 1 completed: Yes Anesthesia Postop Eval I Summary Anesthesia Postop Eval I Summary: Anesthesia Postop Eval I: Assessment Summary Airway patent Yes 09/13/24 17:12 [employer] [email or web address] Spontaneous unlabored Yes 09/13/24 17:12 [employer]AL [email or web address] respirations Mental status Calm 09/13/24 17:12 NAVAL INSPECTOR.TNES nausea No 09/13/24 17:12 NAVAL INSPECTOR.TNES Vomiting No 09/13/24 17:12 NAVAL [email or web address].TNES Anesthesia Postop Eval I: Fluid Summary Crystalloid volume administer 2,000 09/13/24 17:12 NAVAL INSPECTOR.TNES (ml) Colloids volume administered ( ml) Blood Product volume administered (ml) Total IV fluid infused 2,000 09/13/24 17:12 NAVAL [email or web address].TNES Anesthesia Postop Eval I: Summary Notes Anesthesia Complication No 09/13/24 17:12 NAVAL [email or web address].TNES Anesthesia Complication Comment: Post-operative progress note Anesthesia: Postop Eval II Evaluation Mental status: Awake Pain Level: 1 nausea: No Vomiting: No 09/13/24 1910 > Date _ Omar Luqueigner Signature: Date CC: ~ Signed [facility]03-14-2025 Radiology Diagnostic study note [facility] Imaging Services [address] [place], [place] [id number] Shoulder min 2 Views MR#: [id number] Acct: [id number] Name: OSCAR WOO Rep #: [id number] : 1950 F 74 From: Yen Donaldson MD PCP: Dr. Hernando Grimes MD Status: ADM NATE Study:Shoulder min 2 Views Date of Exam: 09/13/24 Exam# [id number] Ordering Dr: Celine Cavanaugh MD PROCEDURE: SHOULDER MIN 2 VIEWS REASON FOR EXAM: POST OP TECHNIQUE: Two views of the left shoulder COMPARISON: None. FINDINGS: Status post left shoulder arthroplasty. Hardware is intact. No acute fracture or dislocation. Mild degenerative changes of the acromioclavicular joint. RAD/Shoulder min 2 Views IMPRESSION: See above Reading Location: [facility] CC: Dr. Hernando Grimes MD; Dr. Fahad Cavanaugh MD ~ Video Manager: Signed [facility]03-14-2025 Consult note [facility] Medical Records Department [address] [place] [address] Anesthesia Postop Eval I 09/13/24 1711 MR#: [id number] Acct: [id number] Name: OSCAR WOO Rep #:[id number] : 1950 74 From: Doug DARBY NA PCP: Dr. Hernando Grimes MD Status:ADM NATE Y Race: C Location: [place] [address] Anesthesia: Postop Eval I Current Vital Signs Temperature: 97 F Pulse Rate: 80 Blood Pressure: 114/75 Respiratory Rate: 22 Pulse Ox: 95 Oxygen Delivery Method: Non-Rebreather Oxygen Flow Rate (L/min): 10 Assessment Airway patent: Yes Spontaneous unlabored respirations: Yes Mental status: Calm nausea: No Vomiting: No Anesthesia Complication: No Fluid Hydration Crystalloid volume administer (ml): 2,000 Total IV fluid infused: 2,000 Progress Note Anesthesia document: Postop Eval 1 completed: Yes 09/13/24 171 NAVAL INSPECTOR> Date _ Doug Urias NAVAL INSPECTOR Cosigner Signature: Date CC: ~ Signed [facility]03-14-2025 Consult note Author Omar gracy [facility] Note Date/Time September 13, 2024 12: 05pm [facility] Medical Records Department [address] [place] [address] Pre-Anesthesia Evaluation 09/13/24 1204 MR#: [id number] Acct: [id number] Name: OSCAR WOO Rep #:[id number] : 1950 74 From: Omar Walters MD PCP: Dr. Hernando Grimes MD Status:ADM IN Y Race: C Location: [place] [address] ASA Classification* ASA Classification ASA Classification: 2 Assessment & Plan Anesthesia* Anesthesia Assessment Anesthesia Assessment: Discussed sedation and/or anesthesia options, risks, benefits, and alternatives with patient/parents/legal guardian/POA. Questions invited. The patient/parents/legal guardian/POA seems to understand and agrees to proceedwith anesthesia plan. Reviewed the physical assessment, medical history, allergy history and patient home medications list prior to surgery/procedure/anesthetic and documented any changes. Performed airway and anesthesia risk assessments. Anesthesia Type Anesthesia Type: General and Block Anesthesia Focused Assessment* Airway Assessment Mouth opens: >3 cm Mallampati Score: II Focused Labs Anesthesia Preop lab: CBC WBC 10.0 K/mm3 (4.4-11.0) 09/12/24 08:19 09/12/24 RBC 4.06 M/mm3 (4.2-5.4) L 09/12/24 08:19 09/12/24 Hgb 12.2 g/dL (12.0-15.0) 09/12/24 08:19 09/12/24 Hct 37.2 % (37-47) 09/12/24 08:19 09/12/24 Plt Count 230 K/mm3 (150-450) 09/12/24 08:19 09/12/24 CHEMISTRY Potassium 3.3 mmol/L (3.3-5.1) 09/11/24 11:21 09/11/24 Sodium 137 mmol/L (133-145) 09/11/24 11:21 09/11/24 Magnesium 1.7 mg/dL (1.5-2.2) 09/12/24 08:19 09/12/24 BUN 29 mg/dL (4-19) H 09/11/24 11:21 09/11/24 Creatinine 1.01 mg/dL (0.70-1.20) 09/11/24 11:21 09/11/24 Glucose 105 mg/dL (70-99) H 09/11/24 11:21 09/11/24 POC Glucose 76 mg/dL (70-110) 06/24/20 07:35 06/24/20 TSH 1.61 uIU/mL (0.358-3.74) 10/19/23 11:51 COAG PT 12.6 SECONDS (11.7-14.9) 06/09/20 12:11 Pre-Assessment Diagnosis/Proposed Procedure Planned Operative Procedure(s): LEFT SHOULDER I&D REVISION LEFT SHOULDER Anesthesia History Anesthesia History - medical insurance biller: Anesthesia History - medical insurance biller Hx Hospitalization No 09/11/24 15:02 Any Problems With Anesthesia No 09/11/24 15:02 Cholinesterase deficiency No 09/11/24 15:02 You/Your Family Experience No 09/11/24 15:02 fever (hyperthermia) with Relationship Recent Exposure to Contagious No 06/24/20 07:25 Disease Does patient have nerve No 09/11/24 15:02 stimulator Patient instructed to have device shut off --Does patient have Pacemaker or ICD? When Was Last Pacemaker Check QUESTION #4 FULL TEXT: You/Your Family Experience fever (hyperthermia) with Anesthesia Last Oral Intake Last Oral intake: Last Oral Intake NPO since Meds taken in AM with sips of water? Meds patient instructed to take am of surgery PONV PONV - medical insurance biller: PONV - medical insurance biller Female Yes 09/11/24 15:02 HX of Motion Sickness No 09/11/24 15:02 HX of N/V After Surgery No 09/11/24 15:02 Non-Smoker Yes 09/11/24 15:02 Duration of Surgery greater Yes 09/11/24 15:02 than 60 minutes Number of Risk Factors 3 09/11/24 15:02 PONV Score Moderate Risk 09/11/24 15:02 Height & Weight Height & Weight: Anesthesia: Height & Weight Height 5 ft 6 in 05/05/22 15:52 Respiratory Assessment Respiratory Assessment - medical insurance biller: Respiratory Tract Infection Hx - medical insurance biller Hx Respiratory Tract Infection No 09/11/24 15:02 STOP Sleep Apnea STOP Sleep Apnea - medical insurance biller: STOP Sleep Apnea - medical insurance biller Hx Hypertension Yes: CONTROLLED WITH MED 09/11/24 15:02 Hx Sleep Apnea No 09/11/24 15:02 CPAP No 06/24/20 10:56 BIPAP No 06/11/20 14:41 Do you snore loudly (louder Yes 09/11/24 15:02 than talking or can be heard Do you often feel tired/ Yes 09/11/24 15:02 fatigued/ sleepy during daytime? Has anyone observed you stop No 09/11/24 15:02 breathing during sleep? STOP Results Positive 09/11/24 15:02 QUESTION #5 FULL TEXT : Do you snore loudly (louder than talking or can be heard through closed doors)? Tobacco Use History Tobacco Use History - medical insurance biller: Tobacco Use History - medical insurance biller Tobacco Use Smoking Status Former smoker 03/12/25 15:02 Hx Tobacco Use No 09/11/24 15:02 Years Smoking Packs Smoked per Day Smoking Cessation Date was No - quit smoking greater 09/11/24 15:02 within the last 15 years than 15 years ago Hx Smoking Cessation Date Hx Smoking Cessation No 09/11/24 15:02 Counseling Hematologic Medial History Hematologic Hx - medical insurance biller: Hematologic Medical Hx - visual manager Hx of Blood Transfusion Yes 09/11/24 15:02 Hx of Transfusion in last 3 No 09/11/24 15:02 Months Date of Last Transfusion (if within last 3 months) Ever experience any problems No 09/11/24 15:02 with transfusion(s)? Specify any problems Hx of Preganancy in last 3 No 09/11/24 15:02 Months Nurse Filling Out Transfusion DSCHRIBER 09/11/24 15:02 & Questions: Date: 09/11/24 09/11/24 15:02 Time: 15:04 09/11/24 15:02 Patient unable to answer at this time (ie. confused, unrespo /Reproduction History /Reproductive History - medical insurance biller: /Reproductive Hx- medical insurance biller Hx Now No 09/11/24 15:02 Gestational Age (in weeks): EDC: Hx Hx Para Hx Section SAB No 09/11/24 15:02 Active Medications Active Medications: Current Medications Generic Name Dose Route Start Last Admin Trade Name Freq PRN Reason Stop Dose Admin Acetaminophen 1,000 mg 09/13/24 13:30 Acetaminophen 500 Mg Tablet PO 09/13/24 13:31 X1 ONE Gabapentin 600 mg 09/13/24 13:30 Gabapentin 600 Mg Tablet PO 09/13/24 13:31 X1 ONE Magnesium Sulfate 2 gm/ 104 mls @ 208 mls/hr 09/13/24 13:30 Dextrose IV 09/13/24 13:59 X1 ONE Vancomycin HCl 1,500 mg/ 530 mls @ 250 mls/hr 09/13/24 13:30 Sodium Chloride IV 09/13/24 15:31 X1 KACEY Clindamycin Phosphate 600 mg in 50 mls @ 100 mls/hr 09/13/24 13:30 Cleocin IV 09/13/24 13:59 PREOP ONE Sodium Chloride 1,000 mls @ 15 mls/hr 09/13/24 11:40 IV .Q48H KACEY Insulin Human Lispro 1 - 6 unit 09/13/24 13:30 Insulin Lispro 100 Unit/Ml Insuln.Pen SC Q4H PRN PRN BG>/= 180, SEE PROTOCOL Protocol PFSH Medical History Wears glasses Post-menopausal Depression Anxiety Walker as ambulation aid Ambulates with cane Arthritis High cholesterol Back pain Restless legs Former smoker Shortness of breath on exertion History of pain when walking History of edema Hypertension Home Medications ?Medication ?Instructions ?Recorded ?Last Taken ?Type losartan 50 mg tablet 50 mg PO BID BP 09/19/14 History melatonin 5 mg tablet 10 mg PO QHS INSOMNIA Unknown History indapamide 1.25 mg tablet 2.5 mg PO DAILY BP 04/12/17 Unknown History pramipexole 0.5 mg tablet (Mirapex) 1 mg PO QHS RLS Unknown History bupropion HCl 300 mg 24 hr tablet, 150 mg PO DAILY DEP RESSION 06/11/20 Unknown History extended release gabapentin 600 mg tablet 600 mg PO QHS SLEEP 06/11/20 Unknown History mirtazapine 15 mg tablet 15 mg PO QHS INSOMNIA 06/23/20 20:00 History amlodipine 10 mg tablet 5 mg PO BID BP 09/11/24 Unkn own History duloxetine 30 mg capsule,delayed 30 mg PO DAILY DEPRES RAHEEM 09/11/24 Unknown History release (Cymbalta) pramipexole 0.5 mg tablet 0.5 mg PO DINNER RLS 5 Unknown History Allergy/AdvReac Type Severity Reaction Status Date / Time Penicillins Allergy Anaphylaxis Verified 09/11/24 14:53 Surgical History History of surgery Hx of colonoscopy Hx of right cataract extraction Hx of left cataract extraction History of partial colectomy Hx of appendectomy Hx of total hip arthroplasty Hx of total shoulder replacement Hx of lumbar discectomy Hx of total shoulder replacement Hx of total hip arthroplasty Social History Smoking Status: Former smoker Review of Systems (Anesthesia) ROS Narrative System reviewed and no additional complaints, except as documented. 09/13/24 1205 <Electronically signed by Omar Walters MD > Date _ Omar Walters MD Cosigner Signature: Date CC: ~ Signed [facility] Work Phone: 1(282) 214-383603-14-2025 Consult note [facility] Medical Records Department [address] [place] [address] Pre-Anesthesia Evaluation 09/13/24 1204 MR#: [id number] Acct: [id number] Name: OSCAR WOO Rep #:[id number] : 1950 74 From: Omar Walters MD PCP: Dr. Hernando Grimes MD Status:ADM IN Y Race: C Location: [place] [address] ASA Classification* ASA Classification ASA Classification: 2 Assessment & Plan Anesthesia* Anesthesia Assessment Anesthesia Assessment: Discussed sedation and/or anesthesia options, risks, benefits, and alternatives with patient/parents/legal guardian/POA. Questions invited. The patient/parents/legal guardian/POA seems to understand and agrees to proceedwith anesthesia plan. Reviewed the physical assessment, medical history, allergy history and patient home medications list prior to surgery/procedure/anesthetic and documented any changes. Performed airway and anesthesia risk assessments. Anesthesia Type Anesthesia Type: General and Block Anesthesia Focused Assessment* Airway Assessment Mouth opens: >3 cm Mallampati Score: II Focused Labs Anesthesia Preop lab: CBC WBC 10.0 K/mm3 (4.4-11.0) 09/12/24 08:19 09/12/24 RBC 4.06 M/mm3 (4.2-5.4) L 09/12/24 08:19 09/12/24 Hgb 12.2 g/dL (12.0-15.0) 09/12/24 08:19 09/12/24 Hct 37.2 % (37-47) 09/12/24 08:19 09/12/24 Plt Count 230 K/mm3 (150-450) 09/12/24 08:19 09/12/24 CHEMISTRY Potassium 3.3 mmol/L (3.3-5.1) 09/11/24 11:21 09/11/24 Sodium 137 mmol/L (133-145) 09/11/24 11:21 09/11/24 Magnesium 1.7 mg/dL (1.5-2.2) 09/12/24 08:19 09/12/24 BUN 29 mg/dL (4-19) H 09/11/24 11:21 09/11/24 Creatinine 1.01 mg/dL (0.70-1.20) 09/11/24 11:21 09/11/24 Glucose 105 mg/dL (70-99) H 09/11/24 11:21 09/11/24 POC Glucose 76 mg/dL (70-110) 06/24/20 07:35 06/24/20 TSH 1.61 uIU/mL (0.358-3.74) 10/19/23 11:51 COAG PT 12.6 SECONDS (11.7-14.9) 06/09/20 12:11 Pre-Assessment Diagnosis/Proposed Procedure Planned Operative Procedure(s): LEFT SHOULDER I&D REVISION LEFT SHOULDER Anesthesia History Anesthesia History - medical insurance biller: Anesthesia History - medical insurance biller Hx Hospitalization No 09/11/24 15:02 Any Problems With Anesthesia No 09/11/24 15:02 Cholinesterase deficiency No 09/11/24 15:02 You/Your Family Experience No 09/11/24 15:02 fever (hyperthermia) with Relationship Recent Exposure to Contagious No 06/24/20 07:25 Disease Does patient have nerve No 09/11/24 15:02 stimulator Patient instructed to have device shut off --Does patient have Pacemaker or ICD? When Was Last Pacemaker Check QUESTION #4 FULL TEXT: You/Your Family Experience fever (hyperthermia) with Anesthesia Last Oral Intake Last Oral intake: Last Oral Intake NPO since Meds taken in AM with sips of water? Meds patient instructed to take am of surgery PONV PONV - medical insurance biller: PONV - medical insurance biller Female Yes 09/11/24 15:02 HX of Motion Sickness No 09/11/24 15:02 HX of N/V After Surgery No 09/11/24 15:02 Non-Smoker Yes 09/11/24 15:02 Duration of Surgery greater Yes 09/11/24 15:02 than 60 minutes Number of Risk Factors 3 09/11/24 15:02 PONV Score Moderate Risk 09/11/24 15:02 Height & Weight Height & Weight: Anesthesia: Height & Weight Height 5 ft 6 in 05/05/22 15:52 Respiratory Assessment Respiratory Assessment - medical insurance biller: Respiratory Tract Infection Hx - medical insurance biller Hx Respiratory Tract Infection No 09/11/24 15:02 STOP Sleep Apnea STOP Sleep Apnea - medical insurance biller: STOP Sleep Apnea - medical insurance biller Hx Hypertension Yes: CONTROLLED WITH MED 09/11/24 15:02 Hx Sleep Apnea No 09/11/24 15:02 CPAP No 06/24/20 10:56 BIPAP No 06/11/20 14:41 Do you snore loudly (louder Yes 09/11/24 15:02 than talking or can be heard Do you often feel tired/ Yes 09/11/24 15:02 fatigued/ sleepy during daytime? Has anyone observed you stop No 09/11/24 15:02 breathing during sleep? STOP Results Positive 09/11/24 15:02 QUESTION #5 FULL TEXT : Do you snore loudly (louder than talking or can be heard through closeddoors)? Tobacco Use History Tobacco Use History - medical insurance biller: Tobacco Use History - medical insurance biller Tobacco Use Smoking Status Former smoker 09/11/24 15:02 Hx Tobacco Use No 09/11/24 15:02 Years Smoking Packs Smoked per Day Smoking Cessation Date was No - quit smoking greater 09/11/24 15:02 within the last 15 years than 15 years ago Hx Smoking Cessation Date Hx Smoking Cessation No 09/11/24 15:02 Counseling Hematologic Medial History Hematologic Hx - medical insurance biller: Hematologic Medical Hx - visual manager Hx of Blood Transfusion Yes 09/11/24 15:02 Hx of Transfusion in last 3 No 09/11/24 15:02 Months Date of Last Transfusion (if within last 3 months) Ever experience any problems No 09/11/24 15:02 with transfusion(s)? Specify any problems Hx of Preganancy in last 3 No 09/11/24 15:02 Months Nurse Filling Out Transfusion DSCHRIBER 09/11/24 15:02 & Questions: Date: 09/11/24 09/11/24 15:02 Time: 15:04 09/11/24 15:02 Patient unable to answer at this time (ie. confused, unrespo /Reproduction History /Reproductive History - medical insurance biller: /Reproductive Hx- medical insurance biller Hx Now No 09/11/24 15:02 Gestational Age (in weeks): EDC: Hx Hx Para Hx Section SAB No 09/11/24 15:02 Active Medications Active Medications: Current Medications Generic Name Dose Route Start Last Admin Trade Name Freq PRN Reason Stop Dose Admin Acetaminophen 1,000 mg 09/13/24 13:30 Acetaminophen 500 Mg Tablet PO 09/13/24 13:31 X1 ONE Gabapentin 600 mg 09/13/24 13:30 Gabapentin 600 Mg Tablet PO 09/13/24 13:31 X1 ONE Magnesium Sulfate 2 gm/ 104 mls @ 208 mls/hr 09/13/24 13:30 Dextrose IV 09/13/24 13:59 X1 ONE Vancomycin HCl 1,500 mg/ 530 mls @ 250 mls/hr 09/13/24 13:30 Sodium Chloride IV 09/13/24 15:31 X1 KACEY Clindamycin Phosphate 600 mg in 50 mls @ 100 mls/hr 09/13/24 13:30 Cleocin IV 09/13/24 13:59 PREOP ONE Sodium Chloride 1,000 mls @ 15 mls/hr 09/13/24 11:40 IV .Q48H KACEY Insulin Human Lispro 1 - 6 unit 09/13/24 13:30 Insulin Lispro 100 Unit/Ml Insuln.Pen SC Q4H PRN PRN BG>/= 180, SEE PROTOCOL Protocol PFSH Medical History Wears glasses Post-menopausal Depression Anxiety Walker as ambulation aid Ambulates with cane Arthritis High cholesterol Back pain Restless legs Former smoker Shortness of breath on exertion History of pain when walking History of edema Hypertension Home Medications ?Medication ?Instructions ?Recorded ?Last Taken ?Type losartan 50 mg tablet 50 mg PO BID BP 09/19/14 History melatonin 5 mg tablet 10 mg PO QHS INSOMNIA Unknown History indapamide 1.25 mg tablet 2.5 mg PO DAILY BP 04/12/17 Unknown History pramipexole 0.5 mg tablet (Mirapex) 1 mg PO QHS RLS Unknown History bupropion HCl 300 mg 24 hr tablet, 150 mg PO DAILY DEP RESSION 06/11/20 Unknown History extended release gabapentin 600 mg tablet 600 mg PO QHS SLEEP 06/11/20 Unknown History mirtazapine 15 mg tablet 15 mg PO QHS INSOMNIA 06/23/20 20:00 History amlodipine 10 mg tablet 5 mg PO BID BP 09/11/24 Unkn own History duloxetine 30 mg capsule,delayed 30 mg PO DAILY DEPRES RAHEEM 09/11/24 Unknown History release (Cymbalta) pramipexole 0.5 mg tablet 0.5 mg PO DINNER RLS 5 Unknown History Allergy/AdvReac Type Severity Reaction Status Date / Time Penicillins Allergy Anaphylaxis Verified 09/11/24 14:53 Surgical History History of surgery Hx of colonoscopy Hx of right cataract extraction Hx of left cataract extraction History of partial colectomy Hx of appendectomy Hx of total hip arthroplasty Hx of total shoulder replacement Hx of lumbar discectomy Hx of total shoulder replacement Hx of total hip arthroplasty Social History Smoking Status: Former smoker Review of Systems (Anesthesia) ROS Narrative System reviewed and no additional complaints, except as documented. 09/13/24 1205 > Date _ Omar Walters MD Cosigner Signature: Date CC: ~ [facility]igned [facility] assessment information available [facility] Work Phone: Evaluation note* Diagnosis Onset Date Resolution Status Admit Date Acute dehydration acute [facility] [place] 2024 7:38pm Acute hypotension acute [facility] [place] 2024 7:38pm Acute kidney injury acute Septe mber 2024 7:38pm Acute respiratory failure with hypoxia and hypercapnia acute Sep tember 2024 7:38pm Bacteria in urine acute [facility] [place] 2024 7:38pm Debility acute March 7:38pm Hypothermia acute March 7:38pm Shock acute March 7:38pm Acute on chronic respiratory failure with hypoxia and hypercapnia chronic March 18, 2025 7:38pm [facility] Work Phone: History and physical note Author Emili Lee [facility] Note Date/Time March 18, 2025 8:45pm [facility] Medical Records Department [address] [place] [id number] H&P Exam - Hospitalist 03/18/251937 MR#: [id number] Acct: [id number] Name: OSCAR WOO Rep #:[id number] : 1950 75 From: Emlii Lee MD PCP: Dr. Hernando Grimes MD Status:ADM IN Location: ICU ICU02-1 HPI - General General Date of Admission: 03/18/25 Date of Service: 03/18/25 Chief Complaint: Altered mental status HPI Narrative OSCAR WOO, is a 75-year-old female with a history of restless leg syndrome, hypertension, depression, hypertension presented [facility] ED 03/18/2025 due to altered mental status. Patient's last known well was 1600 on March 17. In ED patient had some slow speech and was noted to have bruise over the left lateral periorbital region after a fall out of bed. In ED temp 96.4, heart rate of 68 with a blood pressure 79/63, respiratory rate 16 andpulse ox 79% on room air. CBC with white count of 9.9, hemoglobin 15.8. CMP with a sodium of 131, BUN of 51 and a creatinine of 2.22 up from 1.03 a week agowith AST of 86, ALT 61 and alk phos 162. Lactic acid of 1.1, TSH within normal limits, chest x-ray with bilateral low lung volumes. CT head no acute process. UA only positive for 1+ bacteria and urine. Patient given IV fluids initially with improvement in blood pressure however became hypotensive again and patient also became somnolent and she had a CO2 capnography that showed a CO2 of 80, patient intubated in the ED with a postintubation ABG revealing a pCO2 of 59.2 and a pH of 7.32 with a bicarb of 30. Afterwards pressure 54/42 so patient had central line placed in the ED. 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 Patient sent down for a CTA given her hypotension without other identifiable source to assess if this may have ruptured. CTA pending formal read however does not appear patient has acute rupture. Hospitalist contacted for admission. Patientevaluated at bedside after CTA. Family members present at bedside including cousin, sister, granddaughter who is POA. Family reports she has had shortness of breath recently and a dry cough which is why she had the CTA, they were currently working her up and she was supposed see Dr. Reddy with cardiology buthas not had that appointment yet. Cousin at bedside reported the only other to think she complained of for being afraid to fall asleep but she felt like she stopped breathing when she sleeps and some nausea over the past couple days but she had not commented on any diarrhea or abdominal pain and had not been having any vomiting. [facility] Medical History Infection and inflammatory reaction due to other internal joint prosthesis, initial encounter Insomnia MRSA (methicillin resistant staph aureus) culture positive Wears glasses Post-menopausal Depression Anxiety Walker as ambulation aid Ambulates with cane Arthritis High cholesterol Back pain Restless legs Former smoker Shortness of breath on exertion History of pain when walking History of edema Hypertension Home Medications ?Medication ?Instructions ?Recorded ?Last Taken ?Type losartan 50 mg tablet 50 mg PO BID BP 09/19/14 History melatonin 5 mg tablet 10 mg PO QHS INSOMNIA Unknown History bupropion HCl 300 mg 24 hr tablet, 150 mg PO DAILY DEP RESSION 06/11/20 09/13/24 History extended release gabapentin 600 mg tablet 600 mg PO QHS SLEEP 06/11/20 Unknown History mirtazapine 15 mg tablet 15 mg PO QHS INSOMNIA 06/23/20 20:00 History duloxetine 30 mg capsule,delayed 30 mg PO DAILY DEPRES RAHEEM 09/11/24 09/13/24 History release (Cymbalta) pramipexole 0.5 mg tablet 0.5 mg PO DINNER RLS 5 Unknown History aspirin 81 mg chewable tablet 81 mg PO BID blood thinn er #0 tabs 09/17/24 Unknown Rx loperamide 2 mg capsule 2 mg PO Q2H PRN PRN DIARRHEA #0 09/17/24 Unknown Rx caps albuterol sulfate 90 mcg/actuation 2 inh inhalation Q4 H PRN shortness 03/18/25 Unknown History aerosol inhaler of breath or wheezing carvedilol 3.125 mg tablet 3.125 mg PO BID 03/18/25 Un known History doxycycline hyclate 100 mg capsule 100 mg PO BID abx 0 03/18/25 Unknown History indapamide 2.5 mg tablet 2.5 mg PO DAILY diuretic Unknown History naproxen sodium 220 mg tablet 440 mg PO DAILY PRN pain 03/18/25 Unknown History potassium citrate 10 mEq (1,080 10 meq PO DAILY Unknown History mg) tablet,extended release pramipexole 1 mg tablet 1 mg PO QHS restless leg Unknown History spironolactone 50 mg tablet 50 mg PO DAILY 03/18/25 Un known History Allergy/AdvReac Type Severity Reaction Status Date / Time Penicillins Allergy Anaphylaxis Verified 03/18/25 14:54 Surgical History History of reverse total replacement of right shoulder joint History of surgery Hx of colonoscopy Hx of right cataract extraction Hx of left cataract extraction History of partial colectomy Hx of appendectomy Hx of total hip arthroplasty Hx of total shoulder replacement Hx of lumbar discectomy Hx of total shoulder replacement Hx of total hip arthroplasty Social History household members: none Smoking Status: Former smoker alcohol intake: never substance use type: does not use ROS ROS Narrative Unable to obtain ROS secondary to patient mental status Vital Signs Vital Signs Vital Signs: 03/18/25 14:56 03/18/25 15:03 03/18/25 15:47 Temperature 96.4 F L 88.9 F L 90.6 F L Temperature Source Axillary Core Core Pulse Rate 68 65 62 Respiratory Rate 16 24 H 19 H Blood Pressure 79/63 L 87/70 L 103/79 Blood Pressure Mean 68 75 87 Pulse Ox 79 93 96 Oxygen Delivery Method Room Air Nasal Cannula Nasal Cannula Oxygen Flow Rate (L/min) 4 4 EtCo2 - Document during CPR and with ROSC 03/18/25 16:00 03/18/25 17:00 03/18/25 17:30 Temperature Temperature Source Pulse Rate 89 63 Respiratory Rate 17 Blood Pressure 92/71 102/63 Blood Pressure Mean 78 76 Pulse Ox 100 Oxygen Delivery Method Nasal Cannula Oxygen Flow Rate (L/min) 4 EtCo2 - Document during CPR and with ROSC 79 03/18/25 17:48 03/18/25 17:51 03/18/25 17:52 Temperature Temperature Source Pulse Rate 58 L 53 L Respiratory Rate 11 L Blood Pressure 89/64 L 88/62 L Blood Pressure Mean 72 70 Pulse Ox 88 90 Oxygen Delivery Method Nasal Cannula Oxygen Flow Rate (L/min) 4 EtCo2 - Document during CPR and with ROSC 03/18/25 18:00 03/18/25 18:00 03/18/25 18:34 Temperature Temperature Source Pulse Rate 60 61 Respiratory Rate 16 14 Blood Pressure 54/42 L 73/49 L Blood Pressure Mean 46 57 Pulse Ox 99 99 Oxygen Delivery Method Mechanical Ventilator Oxygen Flow Rate (L/min) EtCo2 - Document during CPR and with ROSC 03/18/25 19:18 Temperature Temperature Source Pulse Rate Respiratory Rate Blood Pressure 240/120 H Blood Pressure Mean 160 Pulse Ox Oxygen Delivery Method Oxygen Flow Rate (L/min) EtCo2 - Document during CPR and with ROSC Weight Weight: 112.2 kg Body Mass Index (BMI) 38.7 Physical Exam Narrative General: Patient intubated and sedated HEENT: Atraumatic, normocephalic Eyes: Anicteric, normal conjunctiva, extraocular movements grossly intact Neck: Supple Respiratory: Diminished bilaterally, mechanically ventilated Cardiovascular: Regular rate and rhythm GI: Soft, nondistended Extremities: No significant peripheral edema Musculoskeletal: Not moving extremity spontaneously Neuro: Unable to participate in neuroexam Skin: No overt rashes appreciated Psych: Unable to cooperate secondary to intubation and sedation Results Lab / Micro Data 03/18/25 15:15 03/18/25 15:15 Labs: Laboratory Results - last 24 hr 03/18/25 15:15: WBC 9.9, RBC 5.40, Hgb 15.8 H, Hct 50.5 H, MCV 93.5, MCH 29.3, MCHC 31.3 L, RDW Std Deviation 49.9 H, RDW Coeff of Terry 14.6, Plt Count 218, MPV 10.4, Immature Gran % (Auto) 0.900, Neut % (Auto) 84.3 H, Lymph % (Auto) 7.4 L, [place] % (Auto) 7.0, Eos % (Auto) 0.0, Baso % (Auto) 0.4, Absolute Neuts (auto) 8.4 H, Absolute Lymphs (auto) 0.73 L, Nucleated RBC % 0, PT 12.4, INR 0.9, APTT 27.8, Sodium 131 L, Potassium 4.4, Chloride 84 L, Carbon Dioxide 32.8 H, Anion Gap 14, BUN 51 H, Creatinine 2.22 H, Estim Creat Clear Calc 27.85 L, Est GFR (MDRD) Non-Af 22 L, BUN/Creatinine Ratio 22.8 H, Glucose 115 H, Lactic Acid 1.1,Calcium 9.7, Total Bilirubin 0.35, AST 86 H, ALT 61 H, Alkaline Phosphatase 162 H, Total Protein 7.7, Albumin 4.1, Globulin 3.6, Albumin/Globulin Ratio 1.1, TSH1.650 03/18/25 15:24: Urine Color Yellow, Urine Clarity Clear, Urine pH 6.0, Ur Specific [place] 1.015, Urine Protein 30 H, Urine Glucose (UA) Normal, Urine Ketones Negative, Urine Occult Blood Negative, Urine Nitrite Negative, Urine Bilirubin Negative, Urine Urobilinogen Normal, Ur Leukocyte Esterase Negative, Urine RBC 0-5 SEEN, Urine WBC 0-5 SEEN, Ur Squamous Epith Cells 0-5 SEEN, Ur Transition Epith Cell 0-5 SEEN, Urine Bacteria 1+, Urine Mucus 0 SEEN ABG Data ABG results: ABG 03/18/25 18:22 Specimen Type ART Sample Site L Brach pH 7.32 L Bicarbonate Actual 30.3 H Total CO2 32 Base Excess 4 H O2 Saturation 97 O2 % 40.0 ABG pCO2 59.2 H ABG pO2 101 H Respiration Rate 14 O2 Delivery Device Adult Vent Vent Mode AC/VC Tidal Volume 400.0 POC PEEP 5 Imaging Radiology Impression Brain CT 03/18/25 15:30 IMPRESSION: No acute intracranial process. Reading Location: [id number] Chest X-Ray 03/18/25 15:35 IMPRESSION: Bilateral low lung volumes. No acute cardiopulmonary abnormality. Reading Location: [id number] Chest X-Ray 03/18/25 17:44 IMPRESSION: 1. Endotracheal tube tip 3.1 cm above the abigail. 2. Enteric tube appropriately positioned terminating in the upper midabdomen. 3. Cardiomegaly, with increased vascular markings and possible interstitial edema. Reading Location: [id number] X-Ray 03/18/25 18:00 IMPRESSION: Enteric tube terminates appropriately within the stomach. Persistent IV contrast opacifying the kidneys suggesting medical renal disease with delayed excretion. Reading Location: [facility] Assessment & Plan Assessment/Plan (1) Shock: (2) Acute respiratory failure with hypoxia and hypercapnia: PLAN: Plan # Undifferentiated shock -Patient presented with altered mental status and new onset renal failure, bloodpressure of 79/63 which initially responded to fluids however subsequently went down to 54/42 requiring central line placement and initiation of pressors, hypothermia with temp at 89 and hypoxic hypercapnic respiratory failure of new onset requiring intubation -She had CT chest/abdomen/pelvis yesterday 03/17 due to shortness of breath whichonly showed infrarenal saccular aortic aneurysm measuring 3.8 x 4.5 x 5.5 without any acute abnormalities -Given patient's hypotension/shock advised she have repeat CTA in the ED to verify no aneurysm rupture and repeat CTA does not have any overt evidence for rupture -Official read pending for any other new abnormalities - Blood and urine culture sent -Sputum culture if able -Will check viral panel -White blood cell count within normal limits and workup not revealing for infectious source at this time with UA with 1+ bacteria but no elevated white cells or leuk esterase or nitrite -Given patient's constellation of hypothermia, respiratory failure, hypotension,altered mental status, new onset renal failure do feel it is reasonable to coverpatient with antibiotics while awaiting culture results given cause of shock is still unclear and cannot rule out septic component at this time -Did order Pro-Ronen, ESR, CRP however due to procedures and imaging these have yet to be obtained, will not delay antibiotics while awaiting labs, de-escalate as appropriate -Broad-spectrum antibiotics to be started -Patient be admitted to the ICU, lawn care professional consulted - Patient received 1 L of IV fluids, not given further IV fluids due to recent diagnosis of heart failure and chest x-ray coronary congestion # Acute hypoxic hypercapnic respiratory failure -Patient came in altered, developed progressive hypoxia and was found to be hypercapnic, ultimately required intubation and sedation -Admit to ICU -Workup as above -Scheduled nebs -Will check proBNP - Table Setter consult #Acute renal failure - Creatinine was 1.03 a week ago and is up to 2.22 -Patient was given IV fluids in the ED but and then a quantity due to her recentdiagnosis of heart failure -Day catheter in place -I's and O's -Will obtain urine studies -Low threshold for nephrology consultation #Hx left shoulder prosthetic infection - Reportedly patient still on antibiotics long-term for this previous infection of left shoulder prosthesis - Reportedly had not had any new or acute complaints regarding this and was diane long-term antibiotics - Will be on broad-spectrum antibiotics #Hx HFpEF - Echocardiogram 03/04/2025 with stage I diastolic dysfunction and EF of 70% -Daily weights, I's and O's # Infrarenal aneurysm -CTA of the abdomen pelvis yesterday showed infrarenal saccular aortic aneurysm measuring 3.8 x 4.5 x 5.5, CT in the ED showed stability - Will need outpatient follow-up # Restless leg syndrome - Hold home medications while patient intubated and sedated #Hypertension - Patient came in hypotensive, hold home blood pressure medications #Depression/anxiety -Continue home medications once able #DVT ppx: SCDs Emili Lee, MD Time spent in the patient's overall evaluation,decision-making process, review of diagnostic data, adjustment of management, discussion with other providers, nursing nursing and ancillary staff involved in patient's care documentation, 100 Minutes Sepsis Attestation Sepsis Alert: Yes Sepsis Attestation: Agree w/Sepsis Date exam was performed: 03/18/25 Time exam was performed: 19:00 Possible Source of Sepsis: Unknown Sepsis Organ Dysfunction Criteria Present: SBP < 90 mmHg or MAP < 65 mmHg, AcuteRespiratory Failure (New need for BiPAP/CPAP or MV), Creatinine > 2.0 mg/dL and New/Unexplained change in mental status Fluid Resuscitation Fluid resuscitation indicated?: Yes Fluid Resuscitation ordered: Lesser volume fluid bolus ordered Amount of fluid ordered: 1,000 Reason for lesser fluid bolus:: Concern for fluid overload and Heart failure Sepsis Note Date exam was performed: 03/18/25 Time exam was performed: 20:30 Sepsis Attestation: Sepsis re-evaluation was performed Response to fluids: Non Fluid responsive hypotension and Vasopressors started Charges/Coding Visit Charges Inpatient E&M: 37862 Init Hosp L3 03/18/252044 <Electronically signed by Emili Lee MD> Cosigner Signature (if applicable): CC: Dr. Hernando Grimes MD; Dr. Emili Lee MD~ Signed [facility] Work Phone: Reason for referral (narrative)No reason for referral information availableWRegional [facility] Work Phone: Advance Directives Documents on File Type Date Recorded Patient Foxpro Developer Expl anation Advance Directive(s) 01/27/2016 7:37 AM Advance Directive Response Recorded Date/ Time Advance Directives Yes October 03 3:41pm Living Will Yes June 24 020 2:31pm Power of Marker Machine Yes June 24, 2020 2:31pm Advance Directive Response Recorded Date/ Time Advance Directives Yes October 03 2:41pm Living Will Yes June 24 020 1:31pm Power of Marker Machine Yes June 24, 2020 1:31pm Advance Directive Response Recorded Date/ Time Living Will Yes September 13, 2024 6:26pm Power of Marker Machine Yes September 13 6:26pm Name of Medical Power of Marker Machine GRANDDAUGHTER/ SISTER September 13, 2024 6:26pm Advance Directives Yes October 03 3:41pm Advance Directive Response Recorded Date/ Time Living Will Yes September 18, 2024 4:28pm Do you have a Healthcare Power of Marker Machine? Yes September 18, 2024 4:28pm Name of Medical Power of Marker Machine Sister (Mary Jane Daniels) and Granddaughter (Pattie Woo) September 18, 2024 4:28pm Living Will Yes September 13, 2024 6:26pm Do you have a Healthcare Power of Marker Machine? Yes September 13, 2024 6:26pm Name of Medical Power of Marker Machine GRANDDAUGHTER/SISTER September 13, 2024 6:26pm Advance Directives Yes October 03 3:41pm Advance Directive Response Recorded Date/ Time Advance Directives Yes October 03 3:41pm Advance Directive Response Recorded Date/ Time Do you have a Healthcare Power of Marker Machine? No March 18, 2025 3:48pm Advance Directives Yes October 03 3:41pm Chief Complaint and Reason for Visit Chief Complaint R LE POST-POLIO SYND CHAGO/DECONDITIONING. RX HERE Chief Complaint SCREENING/OSTEO Chief Complaint Admit Date PREOP September 12, 2024 8:0 4am PAT September 13, 2024 7:5 8pm PAT September 14, 2024 7:5 2am Pre-Surgical Testing September 14, 2024 12 :40pm PAT September 15, 2024 8:0 4am PAT September 16, 2024 4:0 3pm PAT September 17, 2024 5:0 9pm PAT September 18, 2024 9:0 8am Reason for Visit Admit Date Depression September 14, 2024 12: 40pm History of reverse total replacement of right shoulder joint September 14, 2024 12:40pm Infection and inflammatory r eaction due to other internal joint prosthesis, September 14, 2024 12:40pm Insomnia September 14, 2024 12: 40pm Neuropathy September 14, 2024 12: 40pm Restless legs September 14, 2024 12: 40pm Hypertension September 14, 2024 12: 40pm Chief Complaint Admit Date PREOP September 12, 2024 8:0 4am PAT September 13, 2024 7:5 8pm PAT September 14, 2024 7:5 2am Pre-Surgical Testing September 14, 2024 12 :40pm PAT September 15, 2024 8:0 4am PAT September 16, 2024 4:0 3pm PAT September 17, 2024 5:0 9pm PAT September 18, 2024 9:0 8am Paroxysmal Atrial Tachycardia August 12:40pm Reason for Visit Admit Date Depression September 14, 2024 12: 40pm Neuropathy September 14, 2024 12: 40pm Restless legs September 14, 2024 12: 40pm Hypertension September 14, 2024 12: 40pm History of reverse total replacement of right shoulder joint September 14, 2024 12:40pm Infection and inflammatory r eaction due to other internal joint prosthesis, September 14, 2024 12:40pm Insomnia September 14, 2024 12: 40pm Acute respiratory failure with hypoxia M 2024 12:40pm Debility September 18, 2024 12: 40pm Depression September 18, 2024 12: 40pm Essential (primary) hypertension August [id number] 12:40pm 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 2024 12:40pm Neuropathy September 18, 2024 12: 40pm Restless legs September 18, 2024 12: 40pm Infection and inflammatory r eaction due to other internal joint prosthesis, September 18, 2024 12:40pm Insomnia September 18, 2024 12: 40pm Chief Complaint Admit Date R rales February 10, 2025 10 :02am Chief Complaint Admit Date R rales February 10, 2025 10 :02am Acute diastolic (congestive) heart failu re March 04, 2025 9:23am EORDER March 10, 2025 10:40am Chief Complaint Admit Date R rales February 10, 2025 10 :02am Acute diastolic (congestive) heart failu re March 04, 2025 9:23am EORDER March 10, 2025 10:40am SOB,FLUID RETENTION March 17, 2025 4:32pm UNDIFFERENTIATED SHOCK, ACUTE HYPOXIC HY PERCAPNIC March 18, 2025 7:38pm Reason for Visit Admit Date Acute dehydration March 18, 2025 7:38pm Acute hypotension March 18, 2025 7:38pm Acute kidney injury March 18, 2025 7:38pm Acute respiratory failure with hypoxia a nd hypercapnia March 18, 2025 7:38pm Bacteria in urine March 18, 2025 7:38pm Debility March 18, 2025 7:38pm Hypothermia March 18, 2025 7:38pm Shock March 18, 2025 7:38pm Acute on chronic respiratory failure with hypoxia and hypercapnia March 18, 2025 7:38pm Summary Purpose Family History No Family History Records FoundNo Family History Records FoundNo Family History Records Found Additional Source Comments Source Comments (unrecognize d section and content) In the event this informatio n is protected by the Federal Confidentiality of Alcohol and Drug Abuse Patient Records regulations: The Federal rules restrict any use of the information to criminally investigate or prosecute any alcohol or drug abuse patient.[facility] Goals (unrecognized section and content) Goals may be documented in a n alternate sectionGoals may be documented in an alternate sectionGoals may be documented in an alternate sectionGoals may be documented in an alternate sectionGoals may be documented in an alternate sectionGoals may be documented in an alternate sectionGoals may be documented in an alternate sectionGoals may be documented in an alternate sectionGoals may be documented in an alternate section Care Teams (unrecognized sec tion and content) Team Status: Active Member Role Status Dates Dr. Hernando Grimes MD Family Provider Active Dr. Hernando Grimes MD Primary Care Provider Active Team Status: Inactive Member Role Status Dates Dr. Hernando Grimes MD Primary Care Provide r, Attending Provider, Referring Provider Active Team Status: Inactive Member Role Status Dates Dr. Hernando Grimes MD Primary Care Provider, Attending Wenceslao wallace Active Team Status: Active Member Role Status Dates Dr. Hernando Grimes MD Primary Care Provider Active Team Status: Active Member Role Status Dates Dr. Hernando Grimes MD Primary Care Provider Active Start: September 12, 2024 End: September 12, 2024 Dr. Tejal Holly MD Attending Provider Activ e Start: September 12, 2024 End: September 12, 2024 Dr. Fahad Cavanaugh MD Referring Provider Active Start: September 12, 2024 End: September 12, 2024 Team Status: Active Member Role Status Dates Dr. Hernando Grimes MD Primary Care Provider Active Start: September 13, 2024 Dr. Fahad Cavanaugh MD Admit Provider Active Sta rt: September 13, 2024 Dr. Fahad Cavanaugh MD Referring Provider Active Start: September 13, 2024 Dr. Fahad Cavanaugh MD Other Provider Active Sta rt: September 13, 2024 Dr. Jermaine Simms DO Other Provider Active Start: September 13, 2024 Dr. Luke Montgomery MD Other Provider Active Start: September 13, 2024 Dr. Abdirashid Garcia DO Attending Provider Active Start: September 13, 2024 Team Status: Active Member Role Status Dates Dr. Hernando Grimes MD Primary Care Provider Active Start: September 14, 2024 Dr. Fahad Cavanaugh MD Admit Provider Active Sta rt: September 14, 2024 Dr. Fahad Cavanaugh MD Other Provider Active Sta rt: September 14, 2024 Dr. Emili Lee MD Attending Provider Active Start: September 14, 2024 Dr. Emili Lee MD Other Provider Active Star t: September 14, 2024 Team Status: Inactive Member Role Status Dates Dr. Hernando Grimes MD Primary Care Provider Active Start: September 14, 2024 End: September 18, 2024 Dr. Fahad Cavanaugh MD Admit Provider Active Sta rt: September 14, 2024 End: September 18, 2024 Dr. Fahad Cavanaugh MD Attending Provider Active Start: September 14, 2024 End: September 18, 2024 Dr. Fahad Cavanaugh MD Referring Provider Active Start: September 14, 2024 End: September 18, 2024 Dr. Emili Lee MD Other Provider Active Star t: September 14, 2024 End: September 18, 2024 Dr. Jamie Jiang DO Other Provider Active S tart: September 14, 2024 End: September 18, 2024 Dr. Sixto Andrade MD Other Provider Active Start: September 14, 2024 End: September 18, 2024 Team Status: Active Member Role Status Dates Dr. Hernando Grimes MD Primary Care Provider Active Start: September 15, 2024 Dr. Fahad Cavanaugh MD Admit Provider Active Sta rt: September 15, 2024 Dr. Fahad Cavanaugh MD Referring Provider Active Start: September 15, 2024 Dr. Fahad Cavanaugh MD Other Provider Active Sta rt: September 15, 2024 Dr. Emili Lee MD Attending Provider Active Start: September 15, 2024 Dr. Emili Lee MD Other Provider Active Star t: September 15, 2024 Team Status: Active Member Role Status Dates Dr. Hernando Grimes MD Primary Care Provider Active Start: September 16, 2024 Dr. Fahad Cavanaugh MD Admit Provider Active Sta rt: September 16, 2024 Dr. Fahad Cavanaugh MD Referring Provider Active Start: September 16, 2024 Dr. Fahad Cavanaugh MD Other Provider Active Sta rt: September 16, 2024 Dr. Emili Lee MD Other Provider Active Star t: September 16, 2024 Dr. Jamie Jiang DO Attending Provider Active Start: September 16, 2024 Dr. Jamie Jiang DO Other Provider Active S tart: September 16, 2024 Dr. Sixto Andrade MD Other Provider Active Start: September 16, 2024 Team Status: Active Member Role Status Dates Dr. Hernando Grimes MD Primary Care Provider Active Start: September 17, 2024 Dr. Fahad Cavanaugh MD Admit Provider Active Sta rt: September 17, 2024 Dr. Fahad Cavanaugh MD Referring Provider Active Start: September 17, 2024 Dr. Fahad Cavanaugh MD Other Provider Active Sta rt: September 17, 2024 Dr. Emili Lee MD Other Provider Active Star t: September 17, 2024 Dr. Jamie Jiang DO Attending Provider Active Start: September 17, 2024 Dr. Jamie Jiang DO Other Provider Active S tart: September 17, 2024 Dr. Sixto Andrade MD Other Provider Active Start: September 17, 2024 Team Status: Active Member Role Status Dates Dr. Hernando Grimes MD Primary Care Provider Active Start: September 18, 2024 Dr. Fahad Cavanaugh MD Admit Provider Active Sta rt: September 18, 2024 Dr. Fahad Cavanaugh MD Referring Provider Active Start: September 18, 2024 Dr. Fahad Cavanaugh MD Other Provider Active Sta rt: September 18, 2024 Dr. Emili Lee MD Other Provider Active Star t: September 18, 2024 Dr. Jamie Jiang , DO Attending Provider Active Start: September 18, 2024 Dr. Jamie Jiang , Other Provider Active S tart: September 18, 2024 Dr. Sixto Andrade MD Other Provider Active Start: September 18, 2024 Team Status: Active Member Role Status Dates Dr. Hernando Grimes MD Primary Care Provider Active Start: September 15, 2024 Dr. Fahad Cavanaugh MD Admit Provider Active Sta rt: September 15, 2024 Dr. Fahad Cavanaugh MD Other Provider Active Sta rt: September 15, 2024 Dr. Emili Lee MD Attending Provider Active Start: September 15, 2024 Dr. Emili Lee MD Other Provider Active Star t: September 15, 2024 Team Status: Active Member Role Status Dates Dr. Hernando Grimes MD Primary Care Provider Active Start: September 16, 2024 Dr. Fahad Cavanaugh MD Admit Provider Active Sta rt: September 16, 2024 Dr. Fahad Cavanaugh MD Other Provider Active Sta rt: September 16, 2024 Dr. Emili Lee MD Other Provider Active Star t: September 16, 2024 Dr. Jamie Jiang DO Attending Provider Active Start: September 16, 2024 Dr. Jamie Jiang DO Other Provider Active S tart: September 16, 2024 Dr. Sixto Andrade MD Other Provider Active Start: September 16, 2024 Team Status: Active Member Role Status Dates Dr. Hernando Grimes MD Primary Care Provider Active Start: September 17, 2024 Dr. Fahad Cavanaugh MD Admit Provider Active Sta rt: September 17, 2024 Dr. Fahad Cavanaugh MD Other Provider Active Sta rt: September 17, 2024 Dr. Emili Lee MD Other Provider Active Star t: September 17, 2024 Dr. Jamie Jiang DO Attending Provider Active Start: September 17, 2024 Dr. Jamie Jiang DO Other Provider Active S tart: September 17, 2024 Dr. Sixto Andrade MD Other Provider Active Start: September 17, 2024 Team Status: Active Member Role Status Dates Dr. Hernando Grimes MD Primary Care Provider Active Start: September 18, 2024 Dr. Fahad Cavanaugh MD Admit Provider Active Sta rt: September 18, 2024 Dr. Fahad Cavanaugh MD Other Provider Active Sta rt: September 18, 2024 Dr. Emili Lee MD Other Provider Active Star t: September 18, 2024 Dr. Jamie Jiang DO Attending Provider Active Start: September 18, 2024 Dr. Jamie Jiang DO Other Provider Active S tart: September 18, 2024 Dr. Sixto Andrade MD Other Provider Active Start: September 18, 2024 Team Status: Inactive Member Role Status Dates Dr. Hernando Grimes MD Primary Care Provider Active Start: September 18, 2024 End: October 08, 2024 Dr. Rodrigo Sanches MD Admit Provider Active Star t: September 18, 2024 End: October 08, 2024 Dr. Rodrigo Sanches MD Attending Provider Active Start: September 18, 2024 End: October 08, 2024 Dr. Rodrigo Sanches MD Referring Provider Active Start: September 18, 2024 End: October 08, 2024 Dr. Sixto Andrade MD Other Provider Active Start: September 18, 2024 End: October 08, 2024 Team Status: Active Member Role/Relationship Status Dates Dr. Hernando Grimes MD Primary Care Provider Active Team Status: Inactive Member Role/Relationship Status Dates Dr. Hernando Grimes MD Primary Care Provider Active Start: February 10, 2025 End: February 10, 2025 Dr. Hernando Grimes MD Attending Provider Active St art: February 10, 2025 End: February 10, 2025 Dr. Hernando Grimes MD Referring Provider Active St art: February 10, 2025 End: February 10, 2025 Team Status: Inactive Member Role/Relationship Status Dates Dr. Hernando Grimes MD Primary Care Provider Active Start: March 04, 2025 End: March 04, 2025 Dr. Hernando Grimes MD Attending Provider Active St art: March 04, 2025 End: March 04, 2025 Dr. Hernando Grimes MD Referring Provider Active St art: March 04, 2025 End: March 04, 2025 Team Status: Active Member Role/Relationship Status Dates Dr. Hernando Grimes MD Primary Care Provider Active Start: March 04, 2025 Dr. Carlene Salazar MD Attending Provider Active Start: March 04, 2025 Team Status: Active Member Role/Relationship Status Dates Dr. Hernando Grimes MD Primary Care Provider Active Start: March 10, 2025 Dr. Hernando Grimes MD Attending Provider Active St art: March 10, 2025 Dr. Hernando Grimes MD Referring Provider Active St art: March 10, 2025 Team Status: Active Member Role/Relationship Status Dates Dr. Hernando Grimes MD Primary Care Provider Active Start: March 17, 2025 Dr. Hernando Grimes MD Attending Provider Active St art: March 17, 2025 Dr. Hernando Grimes MD Referring Provider Active St art: March 17, 2025 Team Status: Active Member Role/Relationship Status Dates Dr. Hernando Grimes MD Primary Care Provider Active Start: March 18, 2025 Dr. Deion Lvey MD Emergency Provider Active Sta rt: March 18, 2025 Dr. Emili Lee MD Admit Provider Active Star t: March 18, 2025 Dr. Emili Lee MD Attending Provider Active Start: March 18, 2025 Dr. Emili Lee MD Other Provider Active Star t: March 18, 2025 INFORMATION SOURCE (unrecogn ized section and content) DATE CREATED AUTHOR 09/13/2024 [facility] DATE CREATED AUTHOR AUTHOR'S ORGANIZ ATION 10/04/2024 [facility] DATE CREATED AUTHOR AUTHOR'S ORGANIZ ATION 03/18/2025 [facility] FOR RECORDS PERTAINING TO PATIENTS WHO ARE [...] BE BASED ON THE PRIMARY CLINICAL RECORDS. [facility] [employer] provides no warranty or guarantee of the accuracy or completeness of information in this document.
--- OUTSIDE RECORDS SUMMARY | 2025-03-18 23:18 | XMS RPT_ITS | CCD ---
Author Organization [facility] Inform ion Partnership [facility] Care Team Providers Care Director Mortgage Name Role Phone Hernando Grimes Primary Care [...] Provider Dr. Abdirashid Garcia DO Attending Provider [place] Dr. Emili Beckham MD Attending Provider Dr. Emili Lee MD Other Provider Dr. Fahad Cavanaugh MD Attending Provider Dr. Jamie Jiang DO Other Provider Dr. Sixto Andrade MD Other Provider Dr. Jamie Jiang DO Attending Provider PHYSICIAN, NONE Attending Unavailable HERNANDO GRIMES MD Primary Care Unavailable Myron COTTER, Dr. Rodrigo Winters Admit Provider Myron COTTER, Dr. Rodrigo Winters Attending Provider Myron COTTER, Dr. Rodrigo Winters Referring Provider Cornelio COTTER, Dr. Galvin Primary Care Provider Cornelio COTTER, Dr. Galvin Attending Provider [phone] Cornelio COTTER, Dr. Galvin Referring Provider [phone] Martin COTTER, Dr. Concepcion Attending Provider Grimes, Hernando Primary Care Unavailable Carlene Salazar Attending Unavailable Grimes, Hernando Primary Care Unavailable Myron, Rodrigo Chi Referring Unavailable Myron, Rodrigo Chi Attending Unavailable Myron, Rodrigo Chi Admitting Unavailable Lupe, Sixto Consulting Unavailable Grimes, Hernando Primary Care Unavailable Mao, Fahad Referring Unavailable Tejal Holly Attending Unavailabl e Grimes, Hernando Primary Care Unavailable Moa, Fahad Admitting Unavailable Ramonky, Jamie Attending Unavailable [...] Provider Jesus COTTER, Dr. Mock Admit Provider [phone] Jesus COTTER, Dr. Mock Attending Provider Allergies Allergy Classification Reported Allergen(s) Allergy Type Date of Onset Reaction(s) Facility (13 sources) Penicillins; Translations: [Penicillins] Propensity to adverse reactions 6 Shortness of Breath [facility] Medications Current Medications Medication Drug Class(es) Dates Sig (Normalized) Sig (Original) [id number] 200 actuat albuterol 0.09 mg/actuat metered dose [...] 12:01pm docusate sodium 50 mg / sennosides, assisted 8.6 mg oral tablet (16 sources) Start: [...] cbc, vanc trough, and esr. Fax to [phone]. Routine picc care per protocol. Problems Active [...] (Portabl e)on 03-18-2025 Abdomen Single View (Portable) [facility] Imaging Services [address] [place] [address] [id number] Abdomen Single View (Portable) MR#: [id number] Acct: [id number] Name: OSCAR WOO Rep #: [id number] : 1950 F 75 From: Shawn Leonard MD PCP: Dr. Hernando Grimes MD Status: REG ER Study: Abdomen Single View (Portable) Date of Exam: 0 03/18/25 Exam# [id number] Ordering Dr: Deion Levy MD PROCEDURE: ABDOMEN [...] renal disease with delayed excretion. Reading Location: [facility] CC: Dr. Hernando Grimes MD; Dr. Deion Levy MD Credit Representative: Signed Normal [facility] Absolute lymphocyte countOrd ered By: Deionfreida Levy on 03-18-2025 Lymphocytes Auto (Unsp spec) [#/Vol] 0.73 10*3/uL Low 0.83-4.51 [facility] Absolute neutrophil countOrd ered By: Deionfreida Levy on 03-18-2025 Neutrophils (Bld) [#/Vol] 8.4 10*3/uL High 2.0-7.7 [facility] Activated partial thrombopla stin time (aPTT) in platelet poor plasma by coagulation aOrdered By: Deionfreida Levy on 03-18-2025 aPTT Coag (PPP) [Time] 27.8 s 24.1-36.2 [facility] Anion gap in Serum or Plasma Ordered By: Deionfreida Levy on 03-18-2025 Anion gap [Moles/Vol] 14 mmol/L 5-15 [facility] Automated lymphocyte count a s percentage of total leukocytesOrdered By: Deion Levy on 03-18-2025 Lymphocytes/100 WBC Auto (Unsp spec) 7.4 % Low 19-41 [facility] BUN/creatinine ratioOrdered By: Deion Levy on 03-18-2025 Urea nitrogen/Creatinine [Mass ratio] 22.8 mg/mg High 10-20 [facility] Basophil percentageOrdered B y: Deion Levy on 03-18-2025 Basophils/100 WBC (Bld) 0.4 % 0-1 [facility] Bilirubin Test strip Ql (U)O rdered By: Deion Levy on 03-18-2025 Bilirubin Ql (U) Negative Negative [facility] Bilirubin, totalOrdered By: Deion Levy on 03-18-2025 Bilirubin [Mass/Vol] 0.35 mg/dL 0.00-1.30 [facility] Blood Gases by CPSon 09-16-2 025 Base excess Calc (Bld) [Moles/Vol] 4 mmol/L High -2 to +2 [facility] Comment on above: Performed By: #### M 600.2200, M600.2000, M100.3000, M300.2000, M300.3000, M100.2000, M100.4001 #### [facility] [address] [place], [address] Blood Gas Type ART Normal [facility] Comment on above: Performed By: #### M 600.2200, M600.2000, M100.3000, M300.2000, M300.3000, M100.2000, M100.4001 #### [facility] [address] [place], [address] CO2 [Moles/Vol] 32 mmol/L Normal [facility] Comment on above: Performed By: #### M 600.2200, M600.2000, M100.3000, M300.2000, M300.3000, M100.2000, M100.4001 #### [facility] [address] [place], [address] FI02 40.0 Normal [facility] Comment on above: Performed By: #### M 600.2200, M600.2000, M100.3000, M300.2000, M300.3000, M100.2000, M100.4001 #### [facility] [address] [place], [address] HCO3 (Bld) [Moles/Vol] 30.3 mmol/L High 22-26 [facility] Comment on above: Performed By: #### M 600.2200, M600.2000, M100.3000, M300.2000, M300.3000, M100.2000, M100.4001 #### [facility] [address] [place], [address] Mode AC/VC Normal [facility] Comment on above: Performed By: #### M 600.2200, M600.2000, M100.3000, M300.2000, M300.3000, M100.2000, M100.4001 #### [facility] [address] [place], [address] O2 Delivery Dev Adult Vent Normal [facility] Comment on above: Performed By: #### M 600.2200, M600.2000, M100.3000, M300.2000, M300.3000, M100.2000, M100.4001 #### [facility] [address] [place], [address] pCO2 59.2 mmHg High 35-45 [facility] Comment on above: Performed By: #### M 600.2200, M600.2000, M100.3000, M300.2000, M300.3000, M100.2000, M100.4001 #### [facility] [address] [place], [address] PEEP 5 Normal [facility] Comment on above: Performed By: #### M 600.2200, M600.2000, M100.3000, M300.2000, M300.3000, M100.2000, M100.4001 #### [facility] [address] [place], [address] pH (Bld) 7.32 [pH] Low 7.35-7.45 [facility] Comment on above: Performed By: #### M 600.2200, M600.2000, M100.3000, M300.2000, M300.3000, M100.2000, M100.4001 #### [facility] [address] [place], [address] PO2 101 mmHG High 75-100 [facility] Comment on above: Performed By: #### M 600.2200, M600.2000, M100.3000, M300.2000, M300.3000, M100.2000, M100.4001 #### [facility] [address] [place], [address] RR 14 Normal [facility] Comment on above: Performed By: #### M 600.2200, M600.2000, M100.3000, M300.2000, M300.3000, M100.2000, M100.4001 #### [facility] [address] [place], [address] SITE L Brach Normal [facility] Comment on above: Performed By: #### M 600.2200, M600.2000, M100.3000, M300.2000, M300.3000, M100.2000, M100.4001 #### [facility] [address] [place], [address] SO2 97 Normal 95-99 [facility] Comment on above: Performed By: #### M 600.2200, M600.2000, M100.3000, M300.2000, M300.3000, M100.2000, M100.4001 #### [facility] [address] [place], [address] Vt 400.0 mL Normal [facility] Comment on above: Performed By: #### M 600.2200, M600.2000, M100.3000, M300.2000, M300.3000, M100.2000, M100.4001 #### [facility] [address] [place], [address] Blood base excess determinat ionOrdered By: Emili Lee on 03-18-2025 Base excess Calc (BldV) [Moles/Vol] 4 mmol/L High -2-2 [facility] Blood bicarbonate measuremen tOrdered By: Emili Lee on 03-18-2025 HCO3 (Bld) [Moles/Vol] 30.3 mmol/L High 22-26 [facility] Brain/Head without Contrasto n 03-18-2025 Brain/Head without Contrast [facility] Imaging Services [address] [place] [address] Brain/Head without Contrast MR#: [id number] Acct: [id number] Name: OSCAR WOO Rep #: [id number] : 1950 F 75 From: Jayesh Chi PCP: Dr. Hernando Grimes MD Status: REG ER Study: Brain/Head without Contrast Date of Exam: 03/03 12/25 Exam# [id number] Ordering Dr: Deion Levy MD PROCEDURE: BRAIN/HEAD [...] IMPRESSION: No acute intracranial process. Reading Location: [facility] CC: Dr. Hernando Grimes MD; Dr. Deion Levy MD Credit Representative: Signed Normal [facility] CBC W/Diff, Automatedon 03-03 Absolute Lymph 0.73 X10 3/uL Low 0.83-4.51 [facility] Comment on above: Performed By: #### M 600.2200, M600.2000, M100.3000, M300.2000, M300.3000, M100.2000, M100.4001 #### [facility] [address] [place], [place], [id number] Absolute Neut 8.4 X10 3/uL High 2.0-7.7 [facility] Comment on above: Performed By: #### M 600.2200, M600.2000, M100.3000, M300.2000, M300.3000, M100.2000, M100.4001 #### [facility] [address] [place], [address] Basophils/100 WBC (Bld) 0.4 % Normal 0-1 [facility] Comment on above: Performed By: #### M 600.2200, M600.2000, M100.3000, M300.2000, M300.3000, M100.2000, M100.4001 #### [facility] [address] [place], [address] Eosinophils/100 WBC (Bld) 0.0 % Normal 0-5 [facility] Comment on above: Performed By: #### M 600.2200, M600.2000, M100.3000, M300.2000, M300.3000, M100.2000, M100.4001 #### [facility] [address] [place], [address] Erythrocyte distribution width (RBC) [Ratio] 14.6 % Normal 11.6-14.6 [facility] Comment on above: Performed By: #### M 600.2200, M600.2000, M100.3000, M300.2000, M300.3000, M100.2000, M100.4001 #### [facility] [address] [place], [address] Hematocrit (Bld) [Volume fraction] 50.5 % High 37-47 [facility] Comment on above: Performed By: #### M 600.2200, M600.2000, M100.3000, M300.2000, M300.3000, M100.2000, M100.4001 #### [facility] [address] [place], [address] Hemoglobin (Bld) [Mass/Vol] 15.8 g/dL High 12.0-15.0 [facility] Comment on above: Performed By: #### M 600.2200, M600.2000, M100.3000, M300.2000, M300.3000, M100.2000, M100.4001 #### [facility] [address] [place], [address] IG% 0.900 Normal 0.0-0.9 [facility] Comment on above: Result Comment: IG% - Immature Granulocytes (promyelocytes, myelocytes and metamyelocytes) > 1% indicates that a LEFT SHIFT is Present. Performed By: #### M 600.2200, M600.2000, M100.3000, M300.2000, M300.3000, M100.2000, M100.4001 #### [facility] [address] [place], [address] Lymphocytes/100 WBC (Bld) 7.4 % Low 19-41 [facility] Comment on above: Performed By: #### M 600.2200, M600.2000, M100.3000, M300.2000, M300.3000, M100.2000, M100.4001 #### [facility] [address] [place], [address] MCH (RBC) [Entitic mass] 29.3 pg Normal 27.0-32.0 [facility] Comment on above: Performed By: #### M 600.2200, M600.2000, M100.3000, M300.2000, M300.3000, M100.2000, M100.4001 #### [facility] [address] [place], [address] MCHC (RBC) [Mass/Vol] 31.3 g/dL Low 32-36 [facility] Comment on above: Performed By: #### M 600.2200, M600.2000, M100.3000, M300.2000, M300.3000, M100.2000, M100.4001 #### [facility] [address] [place], [address] MCV (RBC) [Entitic vol] 93.5 fL Normal 81-99 [facility] Comment on above: Performed By: #### M 600.2200, M600.2000, M100.3000, M300.2000, M300.3000, M100.2000, M100.4001 #### [facility] [address] [place], [address] Monocytes/100 WBC (Bld) 7.0 % Normal 0-10 [facility] Comment on above: Performed By: #### M 600.2200, M600.2000, M100.3000, M300.2000, M300.3000, M100.2000, M100.4001 #### [facility] [address] [place], [address] Neutrophils/100 WBC (Bld) 84.3 % High 47-70 [facility] Comment on above: Performed By: #### M 600.2200, M600.2000, M100.3000, M300.2000, M300.3000, M100.2000, M100.4001 #### [facility] [address] [place], [address] Nucleated RBC (Bld) [#/Vol] 0 10*3/uL Normal 0-5 [facility] Comment on above: Performed By: #### M 600.2200, M600.2000, M100.3000, M300.2000, M300.3000, M100.2000, M100.4001 #### [facility] [address] [place], [address] Platelet mean volume (Bld) [Entitic vol] 10.4 fL Normal 6.2-12.0 [facility] Comment on above: Performed By: #### M 600.2200, M600.2000, M100.3000, M300.2000, M300.3000, M100.2000, M100.4001 #### [facility] [address] [place], [address] Platelets (Bld) [#/Vol] 218 10*3/uL Normal 150-450 [facility] Comment on above: Performed By: #### M 600.2200, M600.2000, M100.3000, M300.2000, M300.3000, M100.2000, M100.4001 #### [facility] [address] [place], [address] RBC (Bld) [#/Vol] 5.40 10*6/uL Normal 4.2-5.4 [facility] Comment on above: Performed By: #### M 600.2200, M600.2000, M100.3000, M300.2000, M300.3000, M100.2000, M100.4001 #### [facility] [address] [place], [address] RDW SD 49.9 fl High 35.1-43.9 [facility] Comment on above: Performed By: #### M 600.2200, M600.2000, M100.3000, M300.2000, M300.3000, M100.2000, M100.4001 #### [facility] [address] [place], [address] WBC (Bld) [#/Vol] 9.9 10*3/uL Normal 4.4-11.0 [facility] Comment on above: Performed By: #### M 600.2200, M600.2000, M100.3000, M300.2000, M300.3000, M100.2000, M100.4001 #### [facility] [address] [place], [address] CRPon 03-18-2025 C-REACTIVE PROT 5.32 mg/L High 0.0-3.0 [facility] Comment on above: Performed By: #### M 600.2200, M600.2000, M100.3000, M300.2000, M300.3000, M100.2000, M100.4001 #### [facility] [address] [place], [address] CTA Abd/Pelvis W/WO Contrast on 03-18-2025 CTA Abd/Pelvis W/WO Contrast [facility] Imaging Services [address] [place] [address] CTA Abd/Pelvis W/WO Contrast MR#: [id number] Acct: [id number] Name: OSCAR WOO Rep #: [id number] : 1950 F 75 From: Shawn Leonard MD PCP: Dr. Hernando Grimes MD Status: ADM IN Study: CTA Abd/Pelvis W/WO Contrast Date of Exam: Exam# [id number] Ordering Dr: Deion Levy MD PROCEDURE: CTA [...] 12 months to assess stability. Reading Location: [facility] CC: Dr. Hernando Grimes MD; Dr. Deion Levy MD Credit Representative: Signed Normal [facility] Carbon dioxide, total [Moles /volume] in Central venous bloodOrdered By: Deion Levy on 03-18-2025 CO2 [Moles/Vol] 32.8 mmol/L High 21.0-32.0 [facility] Chest 1 View (Portable)on Chest 1 View (Portable) [facility] Imaging Services [address] [place] [address] Chest 1 View (Portable) MR#: [id number] Acct: [id number] Name: OSCAR WOO Rep #: [id number] : 1950 F 75 From: Shawn Leonard MD PCP: Dr. Hernando Grimes MD Status: ADM IN Study: Chest 1 View (Portable) Date of Exam: 03/18/25 Exam# [id number] Ordering Dr: Deion Levy MD PROCEDURE: CHEST [...] Unchanged lung aeration. Stable cardiomegaly. Reading Location: [facility] CC: Dr. Hernando Grimes MD; Dr. Deion Levy MD Credit Representative: Signed Normal [facility] Chest 1 View (Portable) [facility] Imaging Services [address] [place] [address] Chest 1 View (Portable) MR#: [id number] Acct: [id number] Name: OSCAR WOO Rep #: [id number] : 1950 F 75 From: Shawn Leonard MD PCP: Dr. Hernando Grimes MD Status: [facility] ER Study: Chest 1 View (Portable) Date of Exam: 03/18/25 Exam# [id number] Ordering Dr: Deion Levy MD PROCEDURE: CHEST [...] markings and possible interstitial edema. Reading Location: [id number] CC: Dr. Hernando Grimes MD; Dr. Deion Levy MD Credit Representative: Signed Normal [facility] Chest PA and Lateralon 03-18 Chest [address] [facility] Imaging Services [address] [place] [address] Chest PA and Lateral MR#: [id number] Acct: [id number] Name: OSCAR WOO Rep #: [id number] : 1950 F 75 From: Santana Mares MD PCP: Dr. Hernando Grimes MD Status: REG ER Study: Chest PA and Lateral Date of Exam: 03/18/25 Exam# [id number] Ordering Dr: Deion Levy MD PROCEDURE: CHEST [...] volumes. No acute cardiopulmonary abnormality. Reading Location: [id number] CC: Dr. Hernando Grimes MD; Dr. Deion Levy MD Credit Representative: Signed Normal [facility] Chloride assayOrdered By: Mai Levy on 03-18-2025 Chloride [Moles/Vol] 84 mmol/L Low 98-108 [facility] Comprehensive Metabolic Prof ilon 03-18-2025 Albumin [Mass/Vol] 4.1 g/dL Normal 3.4-4.8 [facility] Comment on above: Performed By: #### M 600.2200, M600.2000, M100.3000, M300.2000, M300.3000, M100.2000, M100.4001 #### [facility] [address] [place], [address] Albumin/Globulin [Mass ratio] 1.1 {ratio} Normal 0.9-2.4 [facility] Comment on above: Performed By: #### M 600.2200, M600.2000, M100.3000, M300.2000, M300.3000, M100.2000, M100.4001 #### [facility] [address] [place], [address] ALK PHOS 162 U/L High 35-104 [facility] Comment on above: Performed By: #### M 600.2200, M600.2000, M100.3000, M300.2000, M300.3000, M100.2000, M100.4001 #### [facility] [address] [place], [address] ALT [Catalytic activity/Vol] 61 U/L High <=34 [facility] Comment on above: Performed By: #### M 600.2200, M600.2000, M100.3000, M300.2000, M300.3000, M100.2000, M100.4001 #### [facility] [address] [place], [address] AST [Catalytic activity/Vol] 86 U/L High <=31 [facility] Comment on above: Performed By: #### M 600.2200, M600.2000, M100.3000, M300.2000, M300.3000, M100.2000, M100.4001 #### [facility] [address] [place], [address] Bilirubin [Mass/Vol] 0.35 mg/dL Normal 0.00-1.30 [facility] Comment on above: Performed By: #### M 600.2200, M600.2000, M100.3000, M300.2000, M300.3000, M100.2000, M100.4001 #### [facility] [address] [place], [address] BUN/CRE 22.8 RATIO High 10-20 [facility] Comment on above: Performed By: #### M 600.2200, M600.2000, M100.3000, M300.2000, M300.3000, M100.2000, M100.4001 #### [facility] [address] [place], [address] Calcium [Mass/Vol] 9.7 mg/dL Normal 7.6-11.0 [facility] Comment on above: Performed By: #### M 600.2200, M600.2000, M100.3000, M300.2000, M300.3000, M100.2000, M100.4001 #### [facility] [address] [place], [address] Chloride [Moles/Vol] 84 mmol/L Low 98-108 [facility] Comment on above: Performed By: #### M 600.2200, M600.2000, M100.3000, M300.2000, M300.3000, M100.2000, M100.4001 #### [facility] [address] [place], [address] CO2 [Moles/Vol] 32.8 mmol/L High 21.0-32.0 [facility] Comment on above: Performed By: #### M 600.2200, M600.2000, M100.3000, M300.2000, M300.3000, M100.2000, M100.4001 #### [facility] [address] [place], [address] Creatinine [Mass/Vol] 2.22 mg/dL High 0.70-1.20 [facility] Comment on above: Performed By: #### M 600.2200, M600.2000, M100.3000, M300.2000, M300.3000, M100.2000, M100.4001 #### [facility] [address] [place], [address] ECRCL 27.85 ml/min Low 50-250 [facility] Comment on above: Performed By: #### M 600.2200, M600.2000, M100.3000, M300.2000, M300.3000, M100.2000, M100.4001 #### [facility] [address] [place], [address] GAP 14 Normal 5-15 [facility] Comment on above: Performed By: #### M 600.2200, M600.2000, M100.3000, M300.2000, M300.3000, M100.2000, M100.4001 #### [facility] [address] [place], [address] GFR/1.73 sq M.predicted among non-blacks MDRD (S/P/Bld) [Vol rate/Area] 22 mL/min/{1.73_m2} Low >60 [facility] Comment on above: Result Comment: mL/m in/1.73m2 CKD-EPI Creatinine Equation (2020) Performed By: #### M 600.2200, M600.2000, M100.3000, M300.2000, M300.3000, M100.2000, M100.4001 #### [facility] [address] [place], [address] Globulin (S) [Mass/Vol] 3.6 g/dL Normal 2.2-4.2 [facility] Comment on above: Performed By: #### M 600.2200, M600.2000, M100.3000, M300.2000, M300.3000, M100.2000, M100.4001 #### [facility] [address] [place], [address] Glucose [Mass/Vol] 115 mg/dL High 70-99 [facility] Comment on above: Performed By: #### M 600.2200, M600.2000, M100.3000, M300.2000, M300.3000, M100.2000, M100.4001 #### [facility] [address] [place], [address] Potassium [Moles/Vol] 4.4 mmol/L Normal 3.3-5.1 [facility] Comment on above: Performed By: #### M 600.2200, M600.2000, M100.3000, M300.2000, M300.3000, M100.2000, M100.4001 #### [facility] [address] [place], [address] Sodium [Moles/Vol] 131 mmol/L Low 133-145 [facility] Comment on above: Performed By: #### M 600.2200, M600.2000, M100.3000, M300.2000, M300.3000, M100.2000, M100.4001 #### [facility] [address] [place], [address] T PROT 7.7 g/dL Normal 5.9-8.4 [facility] Comment on above: Performed By: #### M 600.2200, M600.2000, M100.3000, M300.2000, M300.3000, M100.2000, M100.4001 #### [facility] [address] [place], [address] Urea nitrogen [Mass/Vol] 51 mg/dL High 4-19 [facility] Comment on above: Performed By: #### M 600.2200, M600.2000, M100.3000, M300.2000, M300.3000, M100.2000, M100.4001 #### [facility] [address] [place], [address] Eosinophil percentageOrdered By: Deion Levy on 03-18-2025 Eosinophils/100 WBC (Bld) 0.0 % 0-5 [facility] Erythrocyte distribution wid th ratioOrdered By: Deion Levy on 03-18-2025 Erythrocyte distribution width (RBC) [Ratio] 14.6 % 11.6-14.6 [facility] Erythrocyte distribution wid th standard deviationOrdered By: Deion Levy on 03-18-2025 Erythrocyte distribution width (RBC) [Ratio] 49.9 fl High 35.1-43.9 [facility] Glomerular filtration rate ( GFR) estimation/1.73 sq m using serum, plasma, or whole bOrdered By: Deion Levy on 03-18-2025 GFR/1.73 sq M.predicted among non-blacks MDRD (S/P/Bld) [Vol rate/Area] 22 mL/min/{1.73_m2} Low >60 [facility] Comment on above: mL/min/1.73m2 CKD-EP I Creatinine Equation (2020) H AND P Exam - [place] 03-18-2025 H&P Exam - Hospitalist [facility] Medical Records Department [address] [place] [address] H P Exam - Hospitalist 03/18/251937 MR#: [id number] Acct: [id number] Name: OSCAR WOO Rep #: [id number] : 1950 75 From: Emili Lee MD PCP: Dr. Hernando Grimes MD Status:ADM IN Location: ICU ICU02-1 HPI - General General Date of Admission: 03/18/25 Date of Service: 03/18/25 Chief Complaint: Altered mental status HPI Narrative OSCAR WOO, is a 75-year-old female with a history of restless leg syndrome, hypertension, depression, hypertension presented [facility] ED 03/18/2025 due to altered [...] and had not been having any vomiting. [facility] Medical History Infection and inflammatory reaction due [...] Hi story (more content not included)... Normal [facility] Hematocrit Auto (Bld) [Volum e fraction]Ordered By: Deion Levy on 03-18-2025 Hematocrit (Bld) [Volume fraction] 50.5 % High 37-47 [facility] Hemoglobin measurementOrdere d By: Deion Levy on 03-18-2025 Hemoglobin (Bld) [Mass/Vol] 15.8 g/dL High 12.0-15.0 [facility] Immature granulocytes/100 WB C Auto (Bld)Ordered By: Deion Levy on 03-18-2025 Immature granulocytes/100 WBC (Bld) 0.900 % 0.0-0.9 [facility] Comment on above: IG% - Immature Granu locytes (promyelocytes, myelocytes and metamyelocytes) > 1% indicates that a LEFT SHIFT is Present. International normalized rat io (INR) calculationOrdered By: Deion Levy on 03-18-2025 INR Coag (Bld) [Relative time] 0.9 {INR} [facility] Ketones Test strip Ql (U)Ord ered By: Deion Levy on 03-18-2025 Ketones Ql (U) Negative Negative [facility] L509.7001on 03-18-2025 Procalcitonin 0.10 ng/mL Normal <=0.10 [facility] Comment on above: Result Comment: [...] M600.2000, M100.3000, M300.2000, M300.3000, M100.2000, M100.4001 #### [facility] [address] [place], [address] Laboratory - Chemistry and C hemistry - challengeOrdered By: Deion Levy on 03-18-2025 AST [Catalytic activity/Vol] 86 U/L High <32 [facility] Lactic Acidon 03-18-2025 Lactate [Moles/Vol] 1.1 mmol/L Normal 0.0-2.0 [facility] Comment on above: Order Comment: Y Performed By: #### M 600.2200, M600.2000, M100.3000, M300.2000, M300.3000, M100.2000, M100.4001 #### [facility] [address] [place], [place], [id number] Lactic acid measurementOrder ed By: Deionfreida Levy on 03-18-2025 Lactate [Moles/Vol] 1.1 mmol/L 0.0-2.0 [facility] MCV (mean corpuscular volume ) determinationOrdered By: Deion Levy on 03-18-2025 MCV (RBC) [Entitic vol] 93.5 fL 81-99 [facility] Mean corpuscular hemoglobin (MCH) determinationOrdered By: Deion Levy on 03-18-2025 MCH (RBC) [Entitic mass] 29.3 pg 27.0-32.0 [facility] Mean corpuscular hemoglobin concentration (MCHC) determinationOrdered By: Deion Levy on 03-18-2025 MCHC (RBC) [Mass/Vol] 31.3 g/dL Low 32-36 [facility] Mean platelet volume determi nationOrdered By: Deion Levy on 03-18-2025 Platelet mean volume (Bld) [Entitic vol] 10.4 fL 6.2-12.0 [facility] Measurement, pHOrdered By: Wenceslao Lee on 03-18-2025 pH (Unsp spec) 7.32 [pH] Low 7.35-7.45 [facility] Microscopic analysis of urin e for red blood cells (RBC)Ordered By: Deion Levy on 03-18-2025 Microscopic analysis of urine for red blood cells (RBC) 0-5 SEEN /hpf 0-5 [facility] Monocyte percentageOrdered B y: Deion Levy on 03-18-2025 Monocytes/100 WBC (Bld) 7.0 % 0-10 [facility] Mucus LM Ql (Urine sed)Order ed By: Deion Levy on 03-18-2025 Mucus Ql (Urine sed) 0 SEEN /hpf [facility] Neutrophil percentageOrdered By: Deion Levy on 03-18-2025 Neutrophils/100 WBC (Bld) 84.3 % High 47-70 [facility] Nitrite Test strip Ql (U)Ord ered By: Deionfreida Levy on 03-18-2025 Nitrite Ql (U) Negative Negative [facility] No Panel InformationOrdered By: Emili Lee on 03-18-2025 Bedside Blood Gas PEEP 5 [facility] Blood Gas Respiration Rate 14 [facility] Blood Gas Sample Site L Brach [facility] Blood Gas Specimen Type ART [facility] Blood Gas Tidal Volume 400.0 mL [facility] Blood Gas Vent Mode AC/VC [facility] Oxygen Delivery Device Adult Vent [facility] Nucleated red blood cell per centageOrdered By: Deion Levy on 03-18-2025 Nucleated RBC/100 WBC (Bld) [Ratio] 0 % 0-5 [facility] Partial Thromboplast Timeon 03-18-2025 aPTT Coag (Bld) [Time] 27.8 s Normal 24.1-36.2 [facility] Comment on above: Performed By: #### M 600.2200, M600.2000, M100.3000, M300.2000, M300.3000, M100.2000, M100.4001 #### [facility] [address] [place], [address] Platelet countOrdered By: Mai Levy on 03-18-2025 Platelets (Bld) [#/Vol] 218 10*3/uL 150-450 [facility] Potassium measurement (mass/ volume)Ordered By: Deion Levy on 03-18-2025 Potassium (Unsp spec) [Mass/Vol] 4.4 mmol/L 3.3-5.1 [facility] Procalcitonin [Mass/volume] in Serum or Plasma by ImmunoassayOrdered By: Emili Lee on 03-18-2025 Procalcitonin IA [Mass/Vol] 0.10 ng/mL <0.11 [facility] Comment on above: Interpretation:<0.10 -0.25 [...] Protein Ql (U) 30 mg/dl High Negative [facility] Prothrombin Time w/INRon INR Coag (PPP) [Relative time] 0.9 {INR} Normal [facility] Comment on above: Performed By: #### M 600.2200, M600.2000, M100.3000, M300.2000, M300.3000, M100.2000, M100.4001 #### [facility] [address] [place], [place], [id number] PT Coag (PPP) [Time] 12.4 s Normal 11.7-14.9 [facility] Comment on above: Performed By: #### M 600.2200, M600.2000, M100.3000, M300.2000, M300.3000, M100.2000, M100.4001 #### [facility] [address] [place], [place], [address] Prothrombin timeOrdered By: Deion Levy on 03-18-2025 PT Coag (PPP) [Time] 12.4 s 11.7-14.9 [facility] RBC Auto (Bld) [#/Vol]Ordere d By: Deion Levy on 03-18-2025 RBC (Bld) [#/Vol] 5.40 10*6/uL 4.2-5.4 [facility] Serum creatinine measurement (mass/volume)Ordered By: Deion Levy on 03-18-2025 Creatinine [Mass/Vol] 2.22 mg/dL High 0.70-1.20 [facility] Serum globulin measurementOr dered By: Deion Levy on 03-18-2025 Globulin (S) [Mass/Vol] 3.6 g/dL 2.2-4.2 [facility] Serum glucose measurement (m ass/volume)Ordered By: Deion Levy on 03-18-2025 Glucose [Mass/Vol] 115 mg/dL High 70-99 [facility] Serum or plasma C reactive p rotein measurement (mass/volume)Ordered By: Emili Lee on 03-18-2025 CRP [Mass/Vol] 5.32 mg/L High 0.0-3.0 [facility] Serum or plasma alanine gao otransferase (ALT) measurementOrdered By: Deion Levy on 03-18-2025 ALT [Catalytic activity/Vol] 61 U/L High <35 [facility] Serum or plasma albumin lisa urement (mass/volume)Ordered By: Deoin Levy on 03-18-2025 Albumin [Mass/Vol] 4.1 g/dL 3.4-4.8 [facility] Serum or plasma albumin/glob ulin mass ratioOrdered By: Deion Levy on 03-18-2025 Albumin/Globulin [Mass ratio] 1.1 {ratio} 0.9-2.4 [facility] Serum or plasma alkaline bee sphatase measurementOrdered By: Deionfreida Levy on 03-18-2025 ALP [Catalytic activity/Vol] 162 U/L High 35-104 [facility] Serum or plasma calcium lisa urement (mass/volume)Ordered By: Deionfreida Levy on 03-18-2025 Calcium [Mass/Vol] 9.7 mg/dL 7.6-11.0 [facility] Serum or plasma urea nitroge n measurement (mass/volume)Ordered By: Deion Levy on 03-18-2025 Urea nitrogen [Mass/Vol] 51 mg/dL High 4-19 [facility] Sodium levelOrdered By: Deionfreida Levy on 03-18-2025 Sodium [Moles/Vol] 131 mmol/L Low 133-145 [facility] Squamous epithelial cells de tection in urine sediment by light microscopyOrdered By: Deion Levy on 03-18-2025 Epithelial cells.squamous LM Ql (Urine sed) 0-5 SEEN /hpf 5-10 [facility] TSH DL <= 0.005 mIU/L QnOrde red By: Deion Levy on 03-18-2025 TSH Qn 1.650 uIU/mL 0.300-4.200 [facility] Thyroid Stim Hormone (TSH)on 03-18-2025 TSH 1.650 uIU/mL Normal 0.300-4.200 [facility] Comment on above: Performed By: #### M 600.2200, M600.2000, M100.3000, M300.2000, M300.3000, M100.2000, M100.4001 #### [facility] [address] [place], [address] Total carbon dioxide measure mentOrdered By: Emili Lee on 03-18-2025 CO2 [Moles/Vol] 32 mmol/L [facility] Total proteinOrdered By: Deion Levy on 03-18-2025 Protein [Mass/Vol] 7.7 g/dL 5.9-8.4 [facility] Transitional cells detection in urine sediment by light microscopyOrdered By: Deion Levy on 03-18-2025 Transitional cells LM Ql (Urine sed) 0-5 SEEN /hpf 0-5 [facility] Urinalysis, Completeon 03-18 BACTERIA 1+ /hpf Normal None Seen [facility] Comment on above: Order Comment: SOLITARIO TER SPECIMEN Performed By: #### M 600.2200, M600.2000, M100.3000, M300.2000, M300.3000, M100.2000, M100.4001 #### [facility] [address] [place], [place], [id number] EPI,TRANSITION 0-5 SEEN Normal 0-5 [facility] Comment on above: Order Comment: SOLITARIO TER SPECIMEN Performed By: #### M 600.2200, M600.2000, M100.3000, M300.2000, M300.3000, M100.2000, M100.4001 #### [facility] [address] [place], [place], [phone] WBC 0-5 SEEN Normal 0-5 [facility] Comment on above: Order Comment: SOLITARIO TER SPECIMEN Performed By: #### M 600.2200, M600.2000, M100.3000, M300.2000, M300.3000, M100.2000, M100.4001 #### [facility] [address] [place], [place], [phone] EPI,SQUAMOUS 0-5 SEEN Normal 5-10 [facility] Comment on above: Order Comment: SOLITARIO TER SPECIMEN Performed By: #### M 600.2200, M600.2000, M100.3000, M300.2000, M300.3000, M100.2000, M100.4001 #### [facility] [address] [place], [address] RBC 0-5 SEEN Normal 0-5 [facility] Comment on above: Order Comment: SOLITARIO TER SPECIMEN Performed By: #### M 600.2200, M600.2000, M100.3000, M300.2000, M300.3000, M100.2000, M100.4001 #### [facility] [address] [place], [address] Mucus Ql (Urine sed) 0 SEEN Normal [facility] Comment on above: Order Comment: SOLITARIO TER SPECIMEN Performed By: #### M 600.2200, M600.2000, M100.3000, M300.2000, M300.3000, M100.2000, M100.4001 #### [facility] [address] [place], [address] Urine clarityOrdered By: Deion Levy on 03-18-2025 Clarity (U) Clear Clear [facility] Urine color determinationOrd ered By: Deion Levy on 03-18-2025 Color (U) Yellow Yellow [facility] Urine glucose detectionOrder ed By: Deion Levy on 03-18-2025 Glucose Ql (U) Normal mg/dl Normal [facility] Urine leukocyte esterase det ection by dipstickOrdered By: Deion Levy on 03-18-2025 Leukocyte esterase Test strip Ql (U) Negative Negative [facility] Urine pHOrdered By: Deion kendrick on 03-18-2025 pH (U) 6.0 [pH] 5.0 - 8.0 [facility] Urine sediment bacteria coun t by microscopy (number/high power field)Ordered By: Deion Levy on 03-18-2025 Bacteria LM.HPF (Urine sed) [#/Area] 1 /[HPF] None Seen [facility] Urine specific gravity measu rementOrdered By: Deion Levy on 03-18-2025 Specific gravity (U) [Rel density] 1.015 1.002-1.030 [facility] Urine urobilinogen measureme ntOrdered By: Deion Levy on 03-18-2025 Urobilinogen Ql (U) Normal mg/dl Normal [facility] White blood cell (WBC) count Ordered By: Deion Levy on 03-18-2025 WBC (Bld) [#/Vol] 9.9 10*3/uL 4.4-11.0 [facility] White blood cell countOrdere d By: Deion Levy on 03-18-2025 White blood cell count 0-5 SEEN /hpf 0-5 [facility] CTA Chst, Abd, Pel W and/or WOon 03-17-2025 CTA Chst, Abd, Pel W and/or WO [facility] Imaging Services [address] [place] [address] CTA Chst, Abd, Pel W and/or WO MR#: [id number] Acct: [id number] Name: OSCAR WOO Rep #: [id number] : 1950 F 75 From: Jim Thorpe MD PCP: Dr. Hernando Grimes MD Status: REG CLI Study: CTA Chst, Abd, Pel W and/or WO Date of Exam: 0 03/17/25 Exam# [id number] Ordering Dr: Hernando Grimes MD PROCEDURE: CTA [...] no evidence of acute diverticulitis. Reading Location: [facility] CC: Dr. Hernando Grimes MD Credit Representative: Signed Normal [facility] Anion gap in Serum or Plasma Ordered By: Hernando Grimes on 03-10-2025 Anion gap [Moles/Vol] 12 mmol/L 11-14 [facility] BUN/creatinine ratioOrdered By: Hernando Grimes on 03-10-2025 Urea nitrogen/Creatinine [Mass ratio] 27.2 mg/mg High 10- [facility] Basic Metabolic Profile (BMP )on 03-10-2025 BUN/CRE 27.2 RATIO High - [facility] Comment on above: Order Comment: Order Date: 03/05/25Order Info: [id number] - BMP Performed By: #### M 600.2200, M600.2000, M100.3000, M300.2000, M300.3000, M100.2000, M100.4001 #### [facility] [address] [place] [place], [address] Calcium [Mass/Vol] 9.4 mg/dL Normal 7.6-11.0 [facility] Comment on above: Order Comment: Order Date: 03/05/25Order Info: 0667-1 - BMP Performed By: #### M 600.2200, M600.2000, M100.3000, M300.2000, M300.3000, M100.2000, M100.4001 #### [facility] [address] [place], [place], [phone] Chloride [Moles/Vol] 95 mmol/L Low 98-108 [facility] Comment on above: Order Comment: Order Date: 03/05/25Order Info: 0667-1 - BMP Performed By: #### M 600.2200, M600.2000, M100.3000, M300.2000, M300.3000, M100.2000, M100.4001 #### [facility] [address] [place], [place], [phone] CO2 [Moles/Vol] 31.4 mmol/L Normal 21.0-32.0 [facility] Comment on above: Order Comment: Order Date: 03/05/25Order Info: 0667-1 - BMP Performed By: #### M 600.2200, M600.2000, M100.3000, M300.2000, M300.3000, M100.2000, M100.4001 #### [facility] [address] [place], [place], [phone] Creatinine [Mass/Vol] 1.03 mg/dL Normal 0.70-1.20 [facility] Comment on above: Order Comment: Order Date: 03/05/25Order Info: 0667-1 - BMP Performed By: #### M 600.2200, M600.2000, M100.3000, M300.2000, M300.3000, M100.2000, M100.4001 #### [facility] [address] [place], [place], [address] GAP 12 Normal 5-15 [facility] Comment on above: Order Comment: Order Date: 03/05/25Order Info: 0667-1 - BMP Performed By: #### M 600.2200, M600.2000, M100.3000, M300.2000, M300.3000, M100.2000, M100.4001 #### [facility] [address] [place], [address] GFR/1.73 sq M.predicted among non-blacks MDRD (S/P/Bld) [Vol rate/Area] 56 mL/min/{1.73_m2} Low >60 [facility] Comment on above: Order Comment: Order Date: 03/05/25Order Info: 0667- - BMP Result Comment: mL/m in/1.73m2 CKD-EPI Creatinine Equation (2020) Performed By: #### M 600.2200, M600.2000, M100.3000, M300.2000, M300.3000, M100.2000, M100.4001 #### [facility] [address] [place], [address] Glucose [Mass/Vol] 79 mg/dL Normal 70-99 [facility] Comment on above: Order Comment: Order Date: 03/05/25Order Info: 0667- - BMP Performed By: #### M 600.2200, M600.2000, M100.3000, M300.2000, M300.3000, M100.2000, M100.4001 #### [facility] [address] [place], [address] Potassium [Moles/Vol] 4.3 mmol/L Normal 3.3-5.1 [facility] Comment on above: Order Comment: Order Date: 03/05/25Order Info: 0667-1 - BMP Performed By: #### M 600.2200, M600.2000, M100.3000, M300.2000, M300.3000, M100.2000, M100.4001 #### [facility] [address] [place], [address] Sodium [Moles/Vol] 138 mmol/L Normal 133-145 [facility] Comment on above: Order Comment: Order Date: 03/05/25Order Info: 0667-1 - BMP Performed By: #### M 600.2200, M600.2000, M100.3000, M300.2000, M300.3000, M100.2000, M100.4001 #### [facility] [address] [facility] [place], [place], [address] Urea nitrogen [Mass/Vol] 28 mg/dL High 4-19 [facility] Comment on above: Order Comment: Order Date: 03/05/25Order Info: 0667-1 - BMP Performed By: #### M 600.2200, M600.2000, M100.3000, M300.2000, M300.3000, M100.2000, M100.4001 #### [facility] [address] [facility] [place], [place], [id number] Carbon dioxide, total [Moles /volume] in Central venous bloodOrdered By: Hernando Grimes on 03-10-2025 CO2 [Moles/Vol] 31.4 mmol/L 21.0-32.0 [facility] Chloride assayOrdered By: Blas Grimes on 03-10-2025 Chloride [Moles/Vol] 95 mmol/L Low 98-108 [facility] Glomerular filtration rate ( GFR) estimation/1.73 sq m using serum, plasma, or whole bOrdered By: Hernando Grimes on 03-10-2025 GFR/1.73 sq M.predicted among non-blacks MDRD (S/P/Bld) [Vol rate/Area] 56 mL/min/{1.73_m2} Low >60 [facility] Comment on above: mL/min/1.73m2 CKD-EP I Creatinine Equation (2020) Potassium measurement (mass/ volume)Ordered By: Hernando Grimes on 03-10-2025 Potassium (Unsp spec) [Mass/Vol] 4.3 mmol/L 3.3-5.1 [facility] Serum creatinine measurement (mass/volume)Ordered By: Hernando Grimes on 03-10-2025 Creatinine [Mass/Vol] 1.03 mg/dL 0.70-1.20 [facility] Serum glucose measurement (m ass/volume)Ordered By: Hernando Grimes on 03-10-2025 Glucose [Mass/Vol] 79 mg/dL 70-99 [facility] Serum or plasma calcium lisa urement (mass/volume)Ordered By: Hernando Grimes on 03-10-2025 Calcium [Mass/Vol] 9.4 mg/dL 7.6-11.0 [facility] Serum or plasma urea nitroge n measurement (mass/volume)Ordered By: Hernando Grimes on 03-10-2025 Urea nitrogen [Mass/Vol] 28 mg/dL High 4-19 [facility] Sodium levelOrdered By: Hernando Grimes on 03-10-2025 Sodium [Moles/Vol] 138 mmol/L 133-145 [facility] Anion gap in Serum or Plasma Ordered By: Hernando Grimes on 03-04-2025 Anion gap [Moles/Vol] 10 mmol/L 5-15 [facility] BUN/creatinine ratioOrdered By: Hernando Grimes on 03-04-2025 Urea nitrogen/Creatinine [Mass ratio] 36.5 mg/mg High 10-20 [facility] Bilirubin, totalOrdered By: Hernando Grimes on 03-04-2025 Bilirubin [Mass/Vol] 0.35 mg/dL 0.00-1.30 [facility] Carbon dioxide, total [Moles /volume] in Central venous bloodOrdered By: Hernando Grimes on 03-04-2025 CO2 [Moles/Vol] 34.8 mmol/L High 21.0-32.0 [facility] Chloride assayOrdered By: Blas Grimes on 03-04-2025 Chloride [Moles/Vol] 95 mmol/L Low 98-108 [facility] Comprehensive Metabolic Prof ilon 03-04-2025 Albumin [Mass/Vol] 3.7 g/dL Normal 3.4-4.8 [facility] Comment on above: Order Comment: Order Date: 02/18/25Order Info: [id number] - CMPOrder Info: [id number] - MG Performed By: #### M 600.2200, M600.2000, M100.3000, M300.2000, M300.3000, M100.2000, M100.4001 #### [facility] [address] [place], [place], [address] Albumin/Globulin [Mass ratio] 1.3 {ratio} Normal 0.9-2.4 [facility] Comment on above: Order Comment: Order Date: 02/18/25Order Info: 0786-1 - CMPOrder Info: [id number] - MG Performed By: #### M 600.2200, M600.2000, M100.3000, M300.2000, M300.3000, M100.2000, M100.4001 #### [facility] [address] [place], [place], [id number] ALK PHOS 125 U/L High 35-104 [facility] Comment on above: Order Comment: Order Date: 02/18/25Order Info: 0786-1 - CMPOrder Info: - MG Performed By: #### M 600.2200, M600.2000, M100.3000, M300.2000, M300.3000, M100.2000, M100.4001 #### [facility] [address] [place], [place], [id number] ALT [Catalytic activity/Vol] 22 U/L Normal <=34 [facility] Comment on above: Order Comment: Order Date: 02/18/25Order Info: [id number] - CMPOrder Info: - MG Performed By: #### M 600.2200, M600.2000, M100.3000, M300.2000, M300.3000, M100.2000, M100.4001 #### [facility] [address] [place], [place], [address] AST [Catalytic activity/Vol] 28 U/L Normal <=31 [facility] Comment on above: Order Comment: Order Date: 02/18/25Order Info: 0786-1 - CMPOrder Info: [id number] - MG Performed By: #### M 600.2200, M600.2000, M100.3000, M300.2000, M300.3000, M100.2000, M100.4001 #### [facility] [address] [place], [place], [phone] Bilirubin [Mass/Vol] 0.35 mg/dL Normal 0.00-1.30 [facility] Comment on above: Order Comment: Order Date: 02/18/25Order Info: 0786-1 - CMPOrder Info: [id number] - MG Performed By: #### M 600.2200, M600.2000, M100.3000, M300.2000, M300.3000, M100.2000, M100.4001 #### [facility] [address] [place], [place], [phone] BUN/CRE 36.5 RATIO High 10-20 [facility] Comment on above: Order Comment: Order Date: 02/18/25Order Info: 0786-1 - CMPOrder Info: [id number] - MG Performed By: #### M 600.2200, M600.2000, M100.3000, M300.2000, M300.3000, M100.2000, M100.4001 #### [facility] [address] [place], [place], [id number] Calcium [Mass/Vol] 9.2 mg/dL Normal 7.6-11.0 [facility] Comment on above: Order Comment: Order Date: 02/18/25Order Info: 0786-1 - CMPOrder Info: [id number] - MG Performed By: #### M 600.2200, M600.2000, M100.3000, M300.2000, M300.3000, M100.2000, M100.4001 #### [facility] [address] [place], [place], [phone] Chloride [Moles/Vol] 95 mmol/L Low 98-108 [facility] Comment on above: Order Comment: Order Date: 02/18/25Order Info: 0786-1 - CMPOrder Info: [id number] - MG Performed By: #### M 600.2200, M600.2000, M100.3000, M300.2000, M300.3000, M100.2000, M100.4001 #### [facility] [address] [place], [place], [phone] CO2 [Moles/Vol] 34.8 mmol/L High 21.0-32.0 [facility] Comment on above: Order Comment: Order Date: 02/18/25Order Info: 0786-1 - CMPOrder Info: [id number] - MG Performed By: #### M 600.2200, M600.2000, M100.3000, M300.2000, M300.3000, M100.2000, M100.4001 #### [facility] [address] [place], [address] Creatinine [Mass/Vol] 1.73 mg/dL High 0.70-1.20 [facility] Comment on above: Order Comment: Order Date: 02/18/25Order Info: 0786-1 - CMPOrder Info: [id number] - MG Performed By: #### M 600.2200, M600.2000, M100.3000, M300.2000, M300.3000, M100.2000, M100.4001 #### [facility] [address] [place], [place], [id number] GAP 10 Normal 5-15 [facility] Comment on above: Order Comment: Order Date: 02/18/25Order Info: 0786-1 - CMPOrder Info: [id number] - MG Performed By: #### M 600.2200, M600.2000, M100.3000, M300.2000, M300.3000, M100.2000, M100.4001 #### [facility] [address] [place], [place], [id number] GFR/1.73 sq M.predicted among non-blacks MDRD (S/P/Bld) [Vol rate/Area] 30 mL/min/{1.73_m2} Low >60 [facility] Comment on above: Order Comment: Order Date: 02/18/25Order Info: 0786-1 - CMPOrder Info: [id number] - MG Result Comment: mL/m in/1.73m2 CKD-EPI Creatinine Equation (2020) Performed By: #### M 600.2200, M600.2000, M100.3000, M300.2000, M300.3000, M100.2000, M100.4001 #### [facility] [address] [place], [place], [address] Globulin (S) [Mass/Vol] 2.9 g/dL Normal 2.2-4.2 [facility] Comment on above: Order Comment: Order Date: 02/18/25Order Info: 0786-1 - CMPOrder Info: [id number] - MG Performed By: #### M 600.2200, M600.2000, M100.3000, M300.2000, M300.3000, M100.2000, M100.4001 #### [facility] [address] [place], [place], [address] Glucose [Mass/Vol] 93 mg/dL Normal 70-99 [facility] Comment on above: Order Comment: Order Date: 02/18/25Order Info: 0786-1 - CMPOrder Info: [id number] - MG Performed By: #### M 600.2200, M600.2000, M100.3000, M300.2000, M300.3000, M100.2000, M100.4001 #### [facility] [address] [place], [place], [address] Potassium [Moles/Vol] 4.0 mmol/L Normal 3.3-5.1 [facility] Comment on above: Order Comment: Order Date: 02/18/25Order Info: 0786-1 - CMPOrder Info: [id number] - MG Performed By: #### M 600.2200, M600.2000, M100.3000, M300.2000, M300.3000, M100.2000, M100.4001 #### [facility] [address] [place], [address] Sodium [Moles/Vol] 139 mmol/L Normal 133-145 [facility] Comment on above: Order Comment: Order Date: 02/18/25Order Info: 0786-1 - CMPOrder Info: [id number] - MG Performed By: #### M 600.2200, M600.2000, M100.3000, M300.2000, M300.3000, M100.2000, M100.4001 #### [facility] [address] [place], [address] T PROT 6.6 g/dL Normal 5.9-8.4 [facility] Comment on above: Order Comment: Order Date: 02/18/25Order Info: [id number] - CMPOrder Info: [id number] - MG Performed By: #### M 600.2200, M600.2000, M100.3000, M300.2000, M300.3000, M100.2000, M100.4001 #### [facility] [address] [place], [address] Urea nitrogen [Mass/Vol] 63 mg/dL High 4-19 [facility] Comment on above: Order Comment: Order Date: 02/18/25Order Info: [id number] - CMPOrder Info: [id number] - MG Performed By: #### M 600.2200, M600.2000, M100.3000, M300.2000, M300.3000, M100.2000, M100.4001 #### [facility] [address] [place], [address] Echo Complete W/ Contraston 03-04-2025 Echo Complete W/ Contrast [facility] [address] [place] [address] Echo Complete W/ Contrast 03/04/25 0957 MR#: [id number] Acct: [id number] Name: OSCAR WOO Rep #: [id number] : 1950 75 From: Carlene Salazar MD Attending Dr: Dr. Hernando Grimes MD Status: REG CL I Ordering Dr: Hernando Grimes MD Date: 03/04/25 Location: [facility] Sex: F C Admitted: Reason For Study [...] Date Dictated: 03/04/25956 Date Transcribed: 03/04/25 1237 Credit Representative: Signed Normal [facility] Echocardiogram study reportO rdered By: Carlene Salazar on 03-04-2025 Study report [facility] [address] [place] [address] Echo Complete W/ Contrast 03/04/25956 MR#: [id number] Acct: [id number] Name: OSCAR WOO Rep #:[id number] : 1950 75 From: Carlene Salazar MD Attending Dr: Dr. Hernando Grimes MD atus: REG CLI Ordering Dr: Hernando Grimes MD Date: 08/27 Location: [facility] Sex: F C Admitted: Reason For Study [...] Physician: Hernando Grimes Performed By: Xavier Castano [facility] 03/04/25 1237 Date _ Carlene Salazar MD CC: Dr. Hernando Grimes MD ~ Date Dictated: 03/04/2557 Date Transcribed: 03/04/25 123 Credit Representative: Signed [facility] Work Phone: Glomerular filtration rate ( GFR) estimation/1.73 sq m using serum, plasma, or whole bOrdered By: Hernando Grimes on 03-04-2025 GFR/1.73 sq M.predicted among non-blacks MDRD (S/P/Bld) [Vol rate/Area] 30 mL/min/{1.73_m2} Low >60 [facility] Comment on above: mL/min/1.73m2 CKD-EP I Creatinine Equation (2020) Laboratory - Chemistry and C hemistry - challengeOrdered By: Hernando Grimes on 03-04-2025 AST [Catalytic activity/Vol] 28 U/L <32 [facility] Magnesiumon 03-04-2025 Magnesium [Mass/Vol] 1.9 mg/dL Normal 1.5-2.2 [facility] Comment on above: Order Comment: Order Date: 02/18/25Order Info: 0786-1 - CMPOrder Info: [id number] - MG Performed By: #### M 600.2200, M600.2000, M100.3000, M300.2000, M300.3000, M100.2000, M100.4001 #### [facility] [address] [place], [address] Magnesium measurement (mass/ volume)Ordered By: Hernando Grimes on 03-04-2025 Magnesium (Unsp spec) [Mass/Vol] 1.9 mg/dL 1.5-2.2 [facility] Potassium measurement (mass/ volume)Ordered By: Hernando Grimes on 03-04-2025 Potassium (Unsp spec) [Mass/Vol] 4.0 mmol/L 3.3-5.1 [facility] Serum creatinine measurement (mass/volume)Ordered By: Hernando Grimes on 03-04-2025 Creatinine [Mass/Vol] 1.73 mg/dL High 0.70-1.20 [facility] Serum globulin measurementOr dered By: Hernando Grimes on 03-04-2025 Globulin (S) [Mass/Vol] 2.9 g/dL 2.2-4.2 [facility] Serum glucose measurement (m ass/volume)Ordered By: Hernando Grimes on 03-04-2025 Glucose [Mass/Vol] 93 mg/dL 70-99 [facility] Serum or plasma alanine gao otransferase (ALT) measurementOrdered By: Hernando Grimes on 03-04-2025 ALT [Catalytic activity/Vol] 22 U/L <35 [facility] Serum or plasma albumin lisa urement (mass/volume)Ordered By: Hernando Grimes on 03-04-2025 Albumin [Mass/Vol] 3.7 g/dL 3.4-4.8 [facility] Serum or plasma albumin/glob ulin mass ratioOrdered By: Hernando Grimes on 03-04-2025 Albumin/Globulin [Mass ratio] 1.3 {ratio} 0.9-2.4 [facility] Serum or plasma alkaline bee sphatase measurementOrdered By: Hernando Grimes on 03-04-2025 ALP [Catalytic activity/Vol] 125 U/L High 35-104 [facility] Serum or plasma calcium lisa urement (mass/volume)Ordered By: Hernando Grimes on 03-04-2025 Calcium [Mass/Vol] 9.2 mg/dL 7.6-11.0 [facility] Serum or plasma urea nitroge n measurement (mass/volume)Ordered By: Hernando Grimes on 03-04-2025 Urea nitrogen [Mass/Vol] 63 mg/dL High 4-19 [facility] Sodium levelOrdered By: Hernando Grimes on 03-04-2025 Sodium [Moles/Vol] 139 mmol/L 133-145 [facility] Total proteinOrdered By: Esmer Grimes on 03-04-2025 Protein [Mass/Vol] 6.6 g/dL 5.9-8.4 [facility] Acid Fast Bacillus Cultureon 02-19-2025 tAFBC TESTING PERFORMED AT [facility]. ORIGINAL REPORT ON FILE IN LAB CONTAINS ADDITIONAL TEST SITE INFORMATION. Culture, Acid Fast NO ACID-FAST BACILLI ISOLATED AFTER 6 WEEKS. [facility] Comment on above: Performed By: #### M 600.2200, M600.2000, M100.3000, M300.2000, M300.3000, M100.2000, M100.4001 #### [facility] [address] [place], [address] Acid Fast Bacillus Smear/Flu oron 02-19-2025 [facility] ORIGINAL REPORT ON FILE IN LAB CONTAINS ADDITIONAL TEST SITE INFORMATION. Smear, Acid Fast Acid Fast Smear from Concentrated Specimen :Negative Normal [facility] Comment on above: Performed By: #### M 600.2200, M600.2000, M100.3000, M300.2000, M300.3000, M100.2000, M100.4001 #### [facility] [address] [place], [address] Culture, Fungus 8482on 02-19 CUF [facility] ORIGINAL REPORT ON FILE IN LAB CONTAINS ADDITIONAL TEST SITE INFORMATION. CUF No yeast or mold isolated after 4 weeks. [facility] Comment on above: Performed By: #### M 600.2200, M600.2000, M100.3000, M300.2000, M300.3000, M100.2000, M100.4001 #### [facility] [address] [place], [place], [address] Absolute lymphocyte countOrd ered By: Hernando Grimes on 02-10-2025 Lymphocytes Auto (Unsp spec) [#/Vol] 1.51 10*3/uL 0.83-4.51 [facility] Absolute neutrophil countOrd ered By: Hernando Grimes on 02-10-2025 Neutrophils (Bld) [#/Vol] 7.4 10*3/uL 2.0-7.7 [facility] Anion gap in Serum or Plasma Ordered By: Hernando Grimes on 02-10-2025 Anion gap [Moles/Vol] 14 mmol/L 5-15 [facility] Automated lymphocyte count a s percentage of total leukocytesOrdered By: Hernando Grimes on 02-10-2025 Lymphocytes/100 WBC Auto (Unsp spec) 15.2 % Low 19-41 [facility] BUN/creatinine ratioOrdered By: Hernando Grimes on 02-10-2025 Urea nitrogen/Creatinine [Mass ratio] 26.9 mg/mg High 10-20 [facility] Basophil percentageOrdered B y: Hernando Grimes on 02-10-2025 Basophils/100 WBC (Bld) 0.5 % 0-1 [facility] Bilirubin, totalOrdered By: Hernando Grimes on 02-10-2025 Bilirubin [Mass/Vol] 0.39 mg/dL 0.00-1.30 [facility] CBC W/Diff, Automatedon 01-31 Absolute Lymph 1.51 X10 3/uL Normal 0.83-4.51 [facility] Comment on above: Order Comment: Order Date: 02/10/25Order Info: 0184-1 - CBCD Performed By: #### M 600.2200, M600.2000, M100.3000, M300.2000, M300.3000, M100.2000, M100.4001 #### [facility] [address] [place], [place], [address] Absolute Neut 7.4 X10 3/uL Normal 2.0-7.7 [facility] Comment on above: Order Comment: Order Date: 02/10/25Order Info: 0184-1 - CBCD Performed By: #### M 600.2200, M600.2000, M100.3000, M300.2000, M300.3000, M100.2000, M100.4001 #### [facility] [address] [place], [place], [address] Basophils/100 WBC (Bld) 0.5 % Normal 0-1 [facility] Comment on above: Order Comment: Order Date: 02/10/25Order Info: 0184-1 - CBCD Performed By: #### M 600.2200, M600.2000, M100.3000, M300.2000, M300.3000, M100.2000, M100.4001 #### [facility] [address] [place], [place], [id number] Eosinophils/100 WBC (Bld) 2.4 % Normal 0-5 [facility] Comment on above: Order Comment: Order Date: 02/10/25Order Info: 0184-1 - CBCD Performed By: #### M 600.2200, M600.2000, M100.3000, M300.2000, M300.3000, M100.2000, M100.4001 #### [facility] [address] [place], [place], [address] Erythrocyte distribution width (RBC) [Ratio] 13.6 % Normal 11.6-14.6 [facility] Comment on above: Order Comment: Order Date: 02/10/25Order Info: 0184-1 - CBCD Performed By: #### M 600.2200, M600.2000, M100.3000, M300.2000, M300.3000, M100.2000, M100.4001 #### [facility] [address] [place], [place], [address] Hematocrit (Bld) [Volume fraction] 43.3 % Normal 37-47 [facility] Comment on above: Order Comment: Order Date: 02/10/25Order Info: 0184-1 - CBCD Performed By: #### M 600.2200, M600.2000, M100.3000, M300.2000, M300.3000, M100.2000, M100.4001 #### [facility] [address] [place], [address] Hemoglobin (Bld) [Mass/Vol] 13.7 g/dL Normal 12.0-15.0 [facility] Comment on above: Order Comment: Order Date: 02/10/25Order Info: 0184-1 - CBCD Performed By: #### M 600.2200, M600.2000, M100.3000, M300.2000, M300.3000, M100.2000, M100.4001 #### [facility] [address] [place], [address] IG% 0.400 Normal 0.0-0.9 [facility] Comment on above: Order Comment: Order Date: 02/10/25Order Info: 0184-1 - CBCD Result Comment: IG% - Immature Granulocytes (promyelocytes, myelocytes and metamyelocytes) > 1% indicates that a LEFT SHIFT is Present. Performed By: #### M 600.2200, M600.2000, M100.3000, M300.2000, M300.3000, M100.2000, M100.4001 #### [facility] [address] [place], [address] Lymphocytes/100 WBC (Bld) 15.2 % Low 19-41 [facility] Comment on above: Order Comment: Order Date: 02/10/25Order Info: 0184-1 - CBCD Performed By: #### M 600.2200, M600.2000, M100.3000, M300.2000, M300.3000, M100.2000, M100.4001 #### [facility] [address] [place], [place], [id number] MCH (RBC) [Entitic mass] 29.1 pg Normal 27.0-32.0 [facility] Comment on above: Order Comment: Order Date: 02/10/25Order Info: 0184-1 - CBCD Performed By: #### M 600.2200, M600.2000, M100.3000, M300.2000, M300.3000, M100.2000, M100.4001 #### [facility] [address] [place], [address] MCHC (RBC) [Mass/Vol] 31.6 g/dL Low 32-36 [facility] Comment on above: Order Comment: Order Date: 02/10/25Order Info: 0184-1 - CBCD Performed By: #### M 600.2200, M600.2000, M100.3000, M300.2000, M300.3000, M100.2000, M100.4001 #### [facility] [address] [place], [place], [address] MCV (RBC) [Entitic vol] 92.1 fL Normal 81-99 [facility] Comment on above: Order Comment: Order Date: 02/10/25Order Info: 0184-1 - CBCD Performed By: #### M 600.2200, M600.2000, M100.3000, M300.2000, M300.3000, M100.2000, M100.4001 #### [facility] [address] [place], [address] Monocytes/100 WBC (Bld) 7.3 % Normal 0-10 [facility] Comment on above: Order Comment: Order Date: 02/10/25Order Info: 0184-1 - CBCD Performed By: #### M 600.2200, M600.2000, M100.3000, M300.2000, M300.3000, M100.2000, M100.4001 #### [facility] [address] [place], [address] Neutrophils/100 WBC (Bld) 74.2 % High 47-70 [facility] Comment on above: Order Comment: Order Date: 02/10/25Order Info: 0184-1 - CBCD Performed By: #### M 600.2200, M600.2000, M100.3000, M300.2000, M300.3000, M100.2000, M100.4001 #### [facility] [address] [place], [address] Nucleated RBC (Bld) [#/Vol] 0 10*3/uL Normal 0-5 [facility] Comment on above: Order Comment: Order Date: 02/10/25Order Info: 0184-1 - CBCD Performed By: #### M 600.2200, M600.2000, M100.3000, M300.2000, M300.3000, M100.2000, M100.4001 #### [facility] [address] [place], [place], [address] Platelet mean volume (Bld) [Entitic vol] 10.8 fL Normal 6.2-12.0 [facility] Comment on above: Order Comment: Order Date: 02/10/25Order Info: 0184-1 - CBCD Performed By: #### M 600.2200, M600.2000, M100.3000, M300.2000, M300.3000, M100.2000, M100.4001 #### [facility] [address] [place], [place], [address] Platelets (Bld) [#/Vol] 166 10*3/uL Normal 150-450 [facility] Comment on above: Order Comment: Order Date: 02/10/25Order Info: 0184-1 - CBCD Performed By: #### M 600.2200, M600.2000, M100.3000, M300.2000, M300.3000, M100.2000, M100.4001 #### [facility] [address] [place], [address] RBC (Bld) [#/Vol] 4.70 10*6/uL Normal 4.2-5.4 [facility] Comment on above: Order Comment: Order Date: 02/10/25Order Info: 0184-1 - CBCD Performed By: #### M 600.2200, M600.2000, M100.3000, M300.2000, M300.3000, M100.2000, M100.4001 #### [facility] [address] [place], [address] RDW SD 45.9 fl High 35.1-43.9 [facility] Comment on above: Order Comment: Order Date: 02/10/25Order Info: 0184-1 - CBCD Performed By: #### M 600.2200, M600.2000, M100.3000, M300.2000, M300.3000, M100.2000, M100.4001 #### [facility] [address] [facility] [place], [place], [address] (972) WBC (Bld) [#/Vol] 9.9 10*3/uL Normal 4.4-11.0 [facility] Comment on above: Order Comment: Order Date: 02/10/25Order Info: 0184-1 - CBCD Performed By: #### M 600.2200, M600.2000, M100.3000, M300.2000, M300.3000, M100.2000, M100.4001 #### [facility] [address] [facility] [place], [place], [address] Carbon dioxide, total [Moles /volume] in Central venous bloodOrdered By: Hernando Grimes on 02-10-2025 CO2 [Moles/Vol] 29.4 mmol/L 21.0-32.0 [facility] Chest PA and Lateralon 02-10 Chest PA and Lateral [facility] Imaging Services [address] [place], [place] [address] Chest PA and Lateral MR#: [id number] Acct: [id number] Name: OSCAR WOO Rep #: [id number] : 1950 F 75 From: Diana Kendrick PCP: Dr. Hernando Grimes MD Status: REG CLI Study: Chest PA and Lateral Date of Exam: 02/10/25 Exam# [id number] Ordering Dr: Hernando Grmies MD PROCEDURE: CHEST PA AND LATERAL 02/10/2025 [...] compared to the prior exam. Reading Location: [id number] CC: Dr. Hernando Grimes MD Credit Representative: Signed Normal [facility] Chloride assayOrdered By: Blas Grimes on 02-10-2025 Chloride [Moles/Vol] 96 mmol/L Low 98-108 [facility] Comprehensive Metabolic Prof ilon 02-10-2025 Albumin [Mass/Vol] 3.9 g/dL Normal 3.4-4.8 [facility] Comment on above: Order Comment: Order Date: 02/10/25Order Info: 0786-1 - CMPOrder Info: [id number] - MG Performed By: #### M 600.2200, M600.2000, M100.3000, M300.2000, M300.3000, M100.2000, M100.4001 #### [facility] [address] [place], [address] Albumin/Globulin [Mass ratio] 1.3 {ratio} Normal 0.9-2.4 [facility] Comment on above: Order Comment: Order Date: 02/10/25Order Info: 0786-1 - CMPOrder Info: [id number] - MG Performed By: #### M 600.2200, M600.2000, M100.3000, M300.2000, M300.3000, M100.2000, M100.4001 #### [facility] [address] [place], [place], [address] ALK PHOS 147 U/L High 35-104 [facility] Comment on above: Order Comment: Order Date: 02/10/25Order Info: 0786-1 - CMPOrder Info: - MG Performed By: #### M 600.2200, M600.2000, M100.3000, M300.2000, M300.3000, M100.2000, M100.4001 #### [facility] [address] [place], [place], [address] ALT [Catalytic activity/Vol] 27 U/L Normal <=34 [facility] Comment on above: Order Comment: Order Date: 02/10/25Order Info: 0786-1 - CMPOrder Info: - MG Performed By: #### M 600.2200, M600.2000, M100.3000, M300.2000, M300.3000, M100.2000, M100.4001 #### [facility] [address] [place], [place], [address] AST [Catalytic activity/Vol] 36 U/L High <=31 [facility] Comment on above: Order Comment: Order Date: 02/10/25Order Info: 0786-1 - CMPOrder Info: [id number] - MG Performed By: #### M 600.2200, M600.2000, M100.3000, M300.2000, M300.3000, M100.2000, M100.4001 #### [facility] [address] [place], [place], [address] Bilirubin [Mass/Vol] 0.39 mg/dL Normal 0.00-1.30 [facility] Comment on above: Order Comment: Order Date: 02/10/25Order Info: 0786-1 - CMPOrder Info: [id number] - MG Performed By: #### M 600.2200, M600.2000, M100.3000, M300.2000, M300.3000, M100.2000, M100.4001 #### [facility] [address] [place], [place], [address] BUN/CRE 26.9 RATIO High 10-20 [facility] Comment on above: Order Comment: Order Date: 02/10/25Order Info: 0786-1 - CMPOrder Info: [id number] - MG Performed By: #### M 600.2200, M600.2000, M100.3000, M300.2000, M300.3000, M100.2000, M100.4001 #### [facility] [address] [place], [place], [address] Calcium [Mass/Vol] 9.8 mg/dL Normal 7.6-11.0 [facility] Comment on above: Order Comment: Order Date: 02/10/25Order Info: 0786-1 - CMPOrder Info: [id number] - MG Performed By: #### M 600.2200, M600.2000, M100.3000, M300.2000, M300.3000, M100.2000, M100.4001 #### [facility] [address] [place], [place], [address] Chloride [Moles/Vol] 96 mmol/L Low 98-108 [facility] Comment on above: Order Comment: Order Date: 02/10/25Order Info: 0786-1 - CMPOrder Info: [id number] - MG Performed By: #### M 600.2200, M600.2000, M100.3000, M300.2000, M300.3000, M100.2000, M100.4001 #### [facility] [address] [place], [place], [address] CO2 [Moles/Vol] 29.4 mmol/L Normal 21.0-32.0 [facility] Comment on above: Order Comment: Order Date: 02/10/25Order Info: 0786-1 - CMPOrder Info: [id number] - MG Performed By: #### M 600.2200, M600.2000, M100.3000, M300.2000, M300.3000, M100.2000, M100.4001 #### [facility] [address] [place], [address] Creatinine [Mass/Vol] 0.99 mg/dL Normal 0.70-1.20 [facility] Comment on above: Order Comment: Order Date: 02/10/25Order Info: 0786-1 - CMPOrder Info: [id number] - MG Performed By: #### M 600.2200, M600.2000, M100.3000, M300.2000, M300.3000, M100.2000, M100.4001 #### [facility] [address] [place], [place], [address] GAP 14 Normal 5-15 [facility] Comment on above: Order Comment: Order Date: 02/10/25Order Info: 0786-1 - CMPOrder Info: [id number] - MG Performed By: #### M 600.2200, M600.2000, M100.3000, M300.2000, M300.3000, M100.2000, M100.4001 #### [facility] [address] [place], [place], [address] GFR/1.73 sq M.predicted among non-blacks MDRD (S/P/Bld) [Vol rate/Area] 59 mL/min/{1.73_m2} Low >60 [facility] Comment on above: Order Comment: Order Date: 02/10/25Order Info: 0786-1 - CMPOrder Info: [id number] - MG Result Comment: mL/m in/1.73m2 CKD-EPI Creatinine Equation (2020) Performed By: #### M 600.2200, M600.2000, M100.3000, M300.2000, M300.3000, M100.2000, M100.4001 #### [facility] [address] [place], [address] Globulin (S) [Mass/Vol] 3.1 g/dL Normal 2.2-4.2 [facility] Comment on above: Order Comment: Order Date: 02/10/25Order Info: 0786-1 - CMPOrder Info: [id number] - MG Performed By: #### M 600.2200, M600.2000, M100.3000, M300.2000, M300.3000, M100.2000, M100.4001 #### [facility] [address] [place], [place], [address] Glucose [Mass/Vol] 101 mg/dL High 70-99 [facility] Comment on above: Order Comment: Order Date: 02/10/25Order Info: 0786-1 - CMPOrder Info: [id number] - MG Performed By: #### M 600.2200, M600.2000, M100.3000, M300.2000, M300.3000, M100.2000, M100.4001 #### [facility] [address] [place], [place], [address] Potassium [Moles/Vol] 4.4 mmol/L Normal 3.3-5.1 [facility] Comment on above: Order Comment: Order Date: 02/10/25Order Info: 0786-1 - CMPOrder Info: [id number] - MG Performed By: #### M 600.2200, M600.2000, M100.3000, M300.2000, M300.3000, M100.2000, M100.4001 #### [facility] [address] [place], [place], [address] Sodium [Moles/Vol] 140 mmol/L Normal 133-145 [facility] Comment on above: Order Comment: Order Date: 02/10/25Order Info: 0786-1 - CMPOrder Info: [id number] - MG Performed By: #### M 600.2200, M600.2000, M100.3000, M300.2000, M300.3000, M100.2000, M100.4001 #### [facility] [address] [place], [place], [address] T PROT 7.0 g/dL Normal 5.9-8.4 [facility] Comment on above: Order Comment: Order Date: 02/10/25Order Info: 0786-1 - CMPOrder Info: [id number] - MG Performed By: #### M 600.2200, M600.2000, M100.3000, M300.2000, M300.3000, M100.2000, M100.4001 #### [facility] [address] [place], [place], [address] Urea nitrogen [Mass/Vol] 27 mg/dL High 4-19 [facility] Comment on above: Order Comment: Order Date: 02/10/25Order Info: 0786-1 - CMPOrder Info: - MG Performed By: #### M 600.2200, M600.2000, M100.3000, M300.2000, M300.3000, M100.2000, M100.4001 #### [facility] [address] [place], [place], [address] Eosinophil percentageOrdered By: Hernando Grimes on 02-10-2025 Eosinophils/100 WBC (Bld) 2.4 % 0-5 [facility] Erythrocyte distribution wid th ratioOrdered By: Hernando Grimes on 02-10-2025 Erythrocyte distribution width (RBC) [Ratio] 13.6 % 11.6-14.6 [facility] Erythrocyte distribution wid th standard deviationOrdered By: Hernando Grimes on 02-10-2025 Erythrocyte distribution width (RBC) [Ratio] 45.9 fl High 35.1-43.9 [facility] Glomerular filtration rate ( GFR) estimation/1.73 sq m using serum, plasma, or whole bOrdered By: Hernando Grimes on 02-10-2025 GFR/1.73 sq M.predicted among non-blacks MDRD (S/P/Bld) [Vol rate/Area] 59 mL/min/{1.73_m2} Low >60 [facility] Comment on above: mL/min/1.73m2 CKD-EP I Creatinine Equation (2020) Hematocrit Auto (Bld) [Volum e fraction]Ordered By: Hernando Grimes on 02-10-2025 Hematocrit (Bld) [Volume fraction] 43.3 % 37-47 [facility] Hemoglobin measurementOrdere d By: Hernando Grimes on 02-10-2025 Hemoglobin (Bld) [Mass/Vol] 13.7 g/dL 12.0-15.0 [facility] Immature granulocytes/100 WB C Auto (Bld)Ordered By: Hernando Grimes on 02-10-2025 Immature granulocytes/100 WBC (Bld) 0.400 % 0.0-0.9 [facility] Comment on above: IG% - Immature Granu locytes (promyelocytes, myelocytes and metamyelocytes) > 1% indicates that a LEFT SHIFT is Present. Laboratory - Chemistry and C hemistry - challengeOrdered By: Hernando Grimes on 02-10-2025 AST [Catalytic activity/Vol] 36 U/L High <32 [facility] MCV (mean corpuscular volume ) determinationOrdered By: Hernando Grimes on 02-10-2025 MCV (RBC) [Entitic vol] 92.1 fL 81-99 [facility] Magnesiumon 02-10-2025 Magnesium [Mass/Vol] 1.7 mg/dL Normal 1.5-2.2 [facility] Comment on above: Order Comment: Order Date: 02/10/25Order Info: 0786-1 - CMPOrder Info: [id number] - MG Performed By: #### M 600.2200, M600.2000, M100.3000, M300.2000, M300.3000, M100.2000, M100.4001 #### [facility] [address] [place], [place], [id number] Magnesium measurement (mass/ volume)Ordered By: Hernando Grimes on 08-11-2025 Magnesium (Unsp spec) [Mass/Vol] 1.7 mg/dL 1.5-2.2 [facility] Mean corpuscular hemoglobin (MCH) determinationOrdered By: Hernando Grimes on 02-10-2025 MCH (RBC) [Entitic mass] 29.1 pg 27.0-32.0 [facility] Mean corpuscular hemoglobin concentration (MCHC) determinationOrdered By: Hernando Grimes on 02-10-2025 MCHC (RBC) [Mass/Vol] 31.6 g/dL Low 32-36 [facility] Mean platelet volume determi nationOrdered By: Hernando Grimes on 02-10-2025 Platelet mean volume (Bld) [Entitic vol] 10.8 fL 6.2-12.0 [facility] Monocyte percentageOrdered B y: Hernando Grimes on 02-10-2025 Monocytes/100 WBC (Bld) 7.3 % 0-10 [facility] Natriuretic peptide.B prohor mac N-Terminal [Mass/volume] in Serum or PlasmaOrdered By: Hernando Grimes on 02-10-2025 Natriuretic peptide.B prohormone N-Terminal [Mass/Vol] 1101 pg/mL <1800 [facility] Comment on above: Heart Failure Unlike ly: < 300 pg/mLHeart Failure Likely< 50 Years: > 450 pg/mL50-75 Years: > 900 pg/mL>75 Years: > 1800 pg/mL Neutrophil percentageOrdered By: Hernando Grimes on 02-10-2025 Neutrophils/100 WBC (Bld) 74.2 % High 47-70 [facility] Nucleated red blood cell per centageOrdered By: Hernando Grimes on 02-10-2025 Nucleated RBC/100 WBC (Bld) [Ratio] 0 % 0-5 [facility] Platelet countOrdered By: Blas Grimes on 02-10-2025 Platelets (Bld) [#/Vol] 166 10*3/uL 150-450 [facility] Potassium measurement (mass/ volume)Ordered By: Hernando Grimes on 02-10-2025 Potassium (Unsp spec) [Mass/Vol] 4.4 mmol/L 3.3-5.1 [facility] Pro- Brain NATRIURETIC PEPTI Rita 02-10-2025 Natriuretic peptide B (Bld) [Mass/Vol] 1101 pg/mL Normal <=1800 [facility] Comment on above: Order Comment: Order Date: 02/10/25Order Info: [id number] - CMPOrder Info: [id number] - MG Result Comment: Hear t Failure Unlikely: < 300 pg/mL Heart Failure Likely < 50 Years: > 450 pg/mL 50-75 Years: > 900 pg/mL >75 Years: > 1800 pg/mL Performed By: #### M 600.2200, M600.2000, M100.3000, M300.2000, M300.3000, M100.2000, M100.4001 #### [facility] [address] [place], [place], [address] RBC Auto (Bld) [#/Vol]Ordere d By: Hernando Grimes on 02-10-2025 RBC (Bld) [#/Vol] 4.70 10*6/uL 4.2-5.4 [facility] Serum creatinine measurement (mass/volume)Ordered By: Hernando Grimes on 02-10-2025 Creatinine [Mass/Vol] 0.99 mg/dL 0.70-1.20 [facility] Serum globulin measurementOr dered By: Hernando Grimes on 02-10-2025 Globulin (S) [Mass/Vol] 3.1 g/dL 2.2-4.2 [facility] Serum glucose measurement (m ass/volume)Ordered By: Hernando Grimes on 02-10-2025 Glucose [Mass/Vol] 101 mg/dL High 70-99 [facility] Serum or plasma alanine gao otransferase (ALT) measurementOrdered By: Hernando Grimes on 02-10-2025 ALT [Catalytic activity/Vol] 27 U/L <35 [facility] Serum or plasma albumin lisa urement (mass/volume)Ordered By: Hernando Grimes on 02-10-2025 Albumin [Mass/Vol] 3.9 g/dL 3.4-4.8 [facility] Serum or plasma albumin/glob ulin mass ratioOrdered By: Hernando Grimes on 02-10-2025 Albumin/Globulin [Mass ratio] 1.3 {ratio} 0.9-2.4 [facility] Serum or plasma alkaline bee sphatase measurementOrdered By: Hernando Grimes on 02-10-2025 ALP [Catalytic activity/Vol] 147 U/L High 35-104 [facility] Serum or plasma calcium lisa urement (mass/volume)Ordered By: Hernando Grimes on 02-10-2025 Calcium [Mass/Vol] 9.8 mg/dL 7.6-11.0 [facility] Serum or plasma urea nitroge n measurement (mass/volume)Ordered By: Hernando Grimes on 02-10-2025 Urea nitrogen [Mass/Vol] 27 mg/dL High 4-19 [facility] Sodium levelOrdered By: Hernando Grimes on 02-10-2025 Sodium [Moles/Vol] 140 mmol/L 133-145 [facility] Total proteinOrdered By: Esmer Grimes on 02-10-2025 Protein [Mass/Vol] 7.0 g/dL 5.9-8.4 [facility] White blood cell (WBC) count Ordered By: Hernando Grimes on 02-10-2025 WBC (Bld) [#/Vol] 9.9 10*3/uL 4.4-11.0 [facility] Acid Fast Bacillus Cultureon 12-06-2024 [facility] Comments: Left Glenosphere Membrane - collected [...] A GROWTH OF ACID-FAST BACILLI A Normal [facility] Comment on above: Performed By: #### M 600.2200, M600.2000, M100.3000, M300.2000, M300.3000, M100.2000, M100.4001 #### [facility] [address] [place], [place], [id number] Acid Fast Bacillus Smear/Flu oron 11-06-2024 [facility] Comments: Left Glenosphere Membrane - collected in [place] Is this test to exclude patient from TB Isolation? [facility] ORIGINAL REPORT ON FILE IN LAB CONTAINS ADDITIONAL TEST SITE INFORMATION. Smear, Acid Fast Tissue Grinding Smear: Negative Normal [facility] Comment on above: Performed By: #### M 600.2200, M600.2000, M100.3000, M300.2000, M300.3000, M100.2000, M100.4001 #### [facility] [address] [place], [place], [id number] Culture, Fungus 8482on 11-06 [facility] Comments: Left Glenosphere Membrane - collected in [place] Is this test to exclude patient from TB Isolation? [facility] ORIGINAL REPORT ON FILE IN LAB CONTAINS ADDITIONAL TEST SITE INFORMATION. CUF No yeast or mold isolated after 4 weeks. [facility] Comment on above: Performed By: #### M 600.2200, M600.2000, M100.3000, M300.2000, M300.3000, M100.2000, M100.4001 #### [facility] [address] [place], [place], [address] Fungus Stain 8136on 11-07-19 [facility] Comments: Left Glenosphere Membrane - collected in [place] Is this test to exclude patient from TB Isolation? N TESTING PERFORMED AT [facility]. ORIGINAL REPORT ON FILE IN LAB CONTAINS ADDITIONAL TEST SITE INFORMATION. Fungus Stain No fungus observed. Normal [facility] Comment on above: Performed By: #### M 600.2200, M600.2000, M100.3000, M300.2000, M300.3000, M100.2000, M100.4001 #### [facility] [address] [place], [place], [address] Basic Metabolic Profile (BMP )on 10-31-2024 BUN Normal 4-19 [facility] Comment on above: Result Comment: Karen villavicencio via OM: Order cancelled - Patient discharged Performed By: #### M 600.2200, M600.2000, M100.3000, M300.2000, M300.3000, M100.2000, M100.4001 #### [facility] [address] [place], [address] BUN/CRE Normal 10-20 [facility] Comment on above: Result Comment: Canc elled via OM: Order cancelled - Patient discharged Performed By: #### M 600.2200, M600.2000, M100.3000, M300.2000, M300.3000, M100.2000, M100.4001 #### [facility] [address] [place], [address] Calcium Normal 7.6-11.0 [facility] Comment on above: Result Comment: Canc elled via OM: Order cancelled - Patient discharged Performed By: #### M 600.2200, M600.2000, M100.3000, M300.2000, M300.3000, M100.2000, M100.4001 #### [facility] [address] [place], [address] CL Normal 98-108 [facility] Comment on above: Result Comment: Canc elled via OM: Order cancelled - Patient discharged Performed By: #### M 600.2200, M600.2000, M100.3000, M300.2000, M300.3000, M100.2000, M100.4001 #### [facility] [address] [place], [address] CO2 Normal 21.0-32.0 [facility] Comment on above: Result Comment: Canc elled via OM: Order cancelled - Patient discharged Performed By: #### M 600.2200, M600.2000, M100.3000, M300.2000, M300.3000, M100.2000, M100.4001 #### [facility] [address] [place], [address] CREAT,SERUM Normal 0.70-1.20 [facility] Comment on above: Result Comment: Canc elled via OM: Order cancelled - Patient discharged Performed By: #### M 600.2200, M600.2000, M100.3000, M300.2000, M300.3000, M100.2000, M100.4001 #### [facility] [address] [place], [address] eGFR Normal >60 [facility] Comment on above: Result Comment: Canc elled via OM: Order cancelled - Patient discharged Performed By: #### M 600.2200, M600.2000, M100.3000, M300.2000, M300.3000, M100.2000, M100.4001 #### [facility] [address] [place], [address] GAP Normal 5-15 [facility] Comment on above: Result Comment: Canc elled via OM: Order cancelled - Patient discharged Performed By: #### M 600.2200, M600.2000, M100.3000, M300.2000, M300.3000, M100.2000, M100.4001 #### [facility] [address] [place], [address] GLU Normal 70-99 [facility] Comment on above: Result Comment: Canc elled via OM: Order cancelled - Patient discharged Performed By: #### M 600.2200, M600.2000, M100.3000, M300.2000, M300.3000, M100.2000, M100.4001 #### [facility] [address] [place], [address] Potassium Normal 3.3-5.1 [facility] Comment on above: Result Comment: Canc elled via OM: Order cancelled - Patient discharged Performed By: #### M 600.2200, M600.2000, M100.3000, M300.2000, M300.3000, M100.2000, M100.4001 #### [facility] [address] [place], [address] Basic Metabolic Profile (BMP) Normal 133-145 [facility] Comment on above: Result Comment: Canc elled via OM: Order cancelled - Patient discharged Performed By: #### M 600.2200, M600.2000, M100.3000, M300.2000, M300.3000, M100.2000, M100.4001 #### [facility] [address] [place], [address] CBC W/Diff, Automatedon 05-0 Absolute Neut Normal 2.0-7.7 [facility] Comment on above: Result Comment: Canc elled via OM: Order cancelled - Patient discharged Performed By: #### M 600.2200, M600.2000, M100.3000, M300.2000, M300.3000, M100.2000, M100.4001 #### [facility] [address] [place], [address] HCT Normal 37-47 [facility] Comment on above: Result Comment: Canc elled via OM: Order cancelled - Patient discharged Performed By: #### M 600.2200, M600.2000, M100.3000, M300.2000, M300.3000, M100.2000, M100.4001 #### [facility] [address] [place], [address] HGB Normal 12.0-15.0 [facility] Comment on above: Result Comment: Canc elled via OM: Order cancelled - Patient discharged Performed By: #### M 600.2200, M600.2000, M100.3000, M300.2000, M300.3000, M100.2000, M100.4001 #### [facility] [address] [place], [address] MCH Normal 27.0-32.0 [facility] Comment on above: Result Comment: Canc elled via OM: Order cancelled - Patient discharged Performed By: #### M 600.2200, M600.2000, M100.3000, M300.2000, M300.3000, M100.2000, M100.4001 #### [facility] [address] [place], [address] MCHC Normal 32-36 [facility] Comment on above: Result Comment: Canc elled via OM: Order cancelled - Patient discharged Performed By: #### M 600.2200, M600.2000, M100.3000, M300.2000, M300.3000, M100.2000, M100.4001 #### [facility] [address] [place], [address] MCV Normal 81-99 [facility] Comment on above: Result Comment: Canc elled via OM: Order cancelled - Patient discharged Performed By: #### M 600.2200, M600.2000, M100.3000, M300.2000, M300.3000, M100.2000, M100.4001 #### [facility] [address] [place], [address] NEUT% Normal 47-70 [facility] Comment on above: Result Comment: Canc elled via OM: Order cancelled - Patient discharged Performed By: #### M 600.2200, M600.2000, M100.3000, M300.2000, M300.3000, M100.2000, M100.4001 #### [facility] [address] [place], [address] PLT Normal 150-450 [facility] Comment on above: Result Comment: Canc elled via OM: Order cancelled - Patient discharged Performed By: #### M 600.2200, M600.2000, M100.3000, M300.2000, M300.3000, M100.2000, M100.4001 #### [facility] [address] [place], [address] RBC Normal 4.2-5.4 [facility] Comment on above: Result Comment: Canc elled via OM: Order cancelled - Patient discharged Performed By: #### M 600.2200, M600.2000, M100.3000, M300.2000, M300.3000, M100.2000, M100.4001 #### [facility] [address] [place], [address] RDW CV Normal 11.6-14.6 [facility] Comment on above: Result Comment: Canc elled via OM: Order cancelled - Patient discharged Performed By: #### M 600.2200, M600.2000, M100.3000, M300.2000, M300.3000, M100.2000, M100.4001 #### [facility] [address] [place], [address] RDW SD Normal 35.1-43.9 [facility] Comment on above: Result Comment: Canc elled via OM: Order cancelled - Patient discharged Performed By: #### M 600.2200, M600.2000, M100.3000, M300.2000, M300.3000, M100.2000, M100.4001 #### [facility] [address] [place], [address] WBC Normal 4.4-11.0 [facility] Comment on above: Result Comment: Canc elled via OM: Order cancelled - Patient discharged Performed By: #### M 600.2200, M600.2000, M100.3000, M300.2000, M300.3000, M100.2000, M100.4001 #### [facility] [address] [place], [place], [address] Acid Fast Bacillus Cultureon 10-30-2024 [facility] Comments: Left Humeral Membrane - collected in [place] Is this test to exclude patient from TB Isolation? N TESTING PERFORMED AT [facility]. ORIGINAL REPORT ON FILE IN LAB CONTAINS ADDITIONAL TEST SITE INFORMATION. Culture, Acid Fast NO ACID-FAST BACILLI ISOLATED AFTER 6 WEEKS. [facility] Comment on above: Performed By: #### M 600.2200, M600.2000, M100.3000, M300.2000, M300.3000, M100.2000, M100.4001 #### [facility] [address] [place], [place], [address] [facility] Comments: Left Posterior Synovium - collected in [place] Is this test to exclude patient from TB Isolation? N TESTING PERFORMED AT [facility]. ORIGINAL REPORT ON FILE IN LAB CONTAINS ADDITIONAL TEST SITE INFORMATION. Culture, Acid Fast NO ACID-FAST BACILLI ISOLATED AFTER 6 WEEKS. [facility] Comment on above: Performed By: #### M 600.2200, M600.2000, M100.3000, M300.2000, M300.3000, M100.2000, M100.4001 #### [facility] [address] [place], [place], [address] Acid Fast Bacillus Smear/Flu oron 10-30-2024 [facility] Comments: Left Humeral Membrane - collected in [place] Is this test to exclude patient from TB Isolation? N TESTING PERFORMED AT [facility]. ORIGINAL REPORT ON FILE IN LAB CONTAINS ADDITIONAL TEST SITE INFORMATION. Smear, Acid Fast Tissue Grinding Smear: Negative Normal [facility] Comment on above: Performed By: #### M 600.2200, M600.2000, M100.3000, M300.2000, M300.3000, M100.2000, M100.4001 #### [facility] [address] [place], [address] [facility]b Comments: Left Posterior Synovium - collected in [place] Is this test to exclude patient from TB Isolation? [facility] ORIGINAL REPORT ON FILE IN LAB CONTAINS ADDITIONAL TEST SITE INFORMATION. Smear, Acid Fast Tissue Grinding Smear: Negative Normal [facility] Comment on above: Performed By: #### M 600.2200, M600.2000, M100.3000, M300.2000, M300.3000, M100.2000, M100.4001 #### [facility] [address] [place], [place], [address] Culture, Fungus 8482on 10-30 [facility] Comments: Left Humeral Membrane - collected in [place] Is this test to exclude patient from TB Isolation? N TESTING PERFORMED AT [facility]. ORIGINAL REPORT ON FILE IN LAB CONTAINS ADDITIONAL TEST SITE INFORMATION. CUF No yeast or mold isolated after 4 weeks. [facility] Comment on above: Performed By: #### M 600.2200, M600.2000, M100.3000, M300.2000, M300.3000, M100.2000, M100.4001 #### [facility] [address] [place], [address] CUF Comments: Left Posterior Synovium - collected in [place] Is this test to exclude patient from TB Isolation? N TESTING PERFORMED AT [facility] ORIGINAL REPORT ON FILE IN LAB CONTAINS ADDITIONAL TEST SITE INFORMATION. CUF No yeast or mold isolated after 4 weeks. [facility] Comment on above: Performed By: #### M 600.2200, M600.2000, M100.3000, M300.2000, M300.3000, M100.2000, M100.4001 #### [facility] [address] [place], [address] Fungus Stain 8136on 10-31-19 [facility] Comments: Left Humeral Membrane - collected in [place] Is this test to exclude patient from TB Isolation? N TESTING PERFORMED AT [facility] ORIGINAL REPORT ON FILE IN LAB CONTAINS ADDITIONAL TEST SITE INFORMATION. Fungus Stain No fungus observed. Normal [facility] Comment on above: Performed By: #### M 600.2200, M600.2000, M100.3000, M300.2000, M300.3000, M100.2000, M100.4001 #### [facility] [address] [place], [address] [facility] Comments: Left Posterior Synovium - collected in [place] Is this test to exclude patient from TB Isolation? N TESTING PERFORMED AT [facility]. ORIGINAL REPORT ON FILE IN LAB CONTAINS ADDITIONAL TEST SITE INFORMATION. Fungus Stain No fungus observed. Normal [facility] Comment on above: Performed By: #### M 600.2200, M600.2000, M100.3000, M300.2000, M300.3000, M100.2000, M100.4001 #### [facility] [address] [place], [place], [address] Basic Metabolic Profile (BMP )on 10-24-2024 BUN Normal 4-19 [facility] Comment on above: Result Comment: Karen villavicencio via OM: Order cancelled - Patient discharged Performed By: #### M 600.2200, M600.2000, M100.3000, M300.2000, M300.3000, M100.2000, M100.4001 #### [facility] [address] [place], [address] BUN/CRE Normal 10-20 [facility] Comment on above: Result Comment: Canc elled via OM: Order cancelled - Patient discharged Performed By: #### M 600.2200, M600.2000, M100.3000, M300.2000, M300.3000, M100.2000, M100.4001 #### [facility] [address] [place], [address] Calcium Normal 7.6-11.0 [facility] Comment on above: Result Comment: Canc elled via OM: Order cancelled - Patient discharged Performed By: #### M 600.2200, M600.2000, M100.3000, M300.2000, M300.3000, M100.2000, M100.4001 #### [facility] [address] [place], [address] CL Normal 98-108 [facility] Comment on above: Result Comment: Canc elled via OM: Order cancelled - Patient discharged Performed By: #### M 600.2200, M600.2000, M100.3000, M300.2000, M300.3000, M100.2000, M100.4001 #### [facility] [address] [place], [address] CO2 Normal 21.0-32.0 [facility] Comment on above: Result Comment: Canc elled via OM: Order cancelled - Patient discharged Performed By: #### M 600.2200, M600.2000, M100.3000, M300.2000, M300.3000, M100.2000, M100.4001 #### [facility] [address] [place], [address] CREAT,SERUM Normal 0.70-1.20 [facility] Comment on above: Result Comment: Canc elled via OM: Order cancelled - Patient discharged Performed By: #### M 600.2200, M600.2000, M100.3000, M300.2000, M300.3000, M100.2000, M100.4001 #### [facility] [address] [place], [address] eGFR Normal >60 [facility] Comment on above: Result Comment: Canc elled via OM: Order cancelled - Patient discharged Performed By: #### M 600.2200, M600.2000, M100.3000, M300.2000, M300.3000, M100.2000, M100.4001 #### [facility] [address] [place], [address] GAP Normal 5-15 [facility] Comment on above: Result Comment: Canc elled via OM: Order cancelled - Patient discharged Performed By: #### M 600.2200, M600.2000, M100.3000, M300.2000, M300.3000, M100.2000, M100.4001 #### [facility] [address] [place], [address] GLU Normal 70-99 [facility] Comment on above: Result Comment: Canc elled via OM: Order cancelled - Patient discharged Performed By: #### M 600.2200, M600.2000, M100.3000, M300.2000, M300.3000, M100.2000, M100.4001 #### [facility] [address] [place], [address] Potassium Normal 3.3-5.1 [facility] Comment on above: Result Comment: Canc elled via OM: Order cancelled - Patient discharged Performed By: #### M 600.2200, M600.2000, M100.3000, M300.2000, M300.3000, M100.2000, M100.4001 #### [facility] [address] [place], [address] Basic Metabolic Profile (BMP) Normal 133-145 [facility] Comment on above: Result Comment: Canc elled via OM: Order cancelled - Patient discharged Performed By: #### M 600.2200, M600.2000, M100.3000, M300.2000, M300.3000, M100.2000, M100.4001 #### [facility] [address] [place], [address] CBC W/Diff, Automatedon 10-02 Absolute Neut Normal 2.0-7.7 [facility] Comment on above: Result Comment: Canc elled via OM: Order cancelled - Patient discharged Performed By: #### M 600.2200, M600.2000, M100.3000, M300.2000, M300.3000, M100.2000, M100.4001 #### [facility] [address] [place], [address] HCT Normal 37-47 [facility] Comment on above: Result Comment: Canc elled via OM: Order cancelled - Patient discharged Performed By: #### M 600.2200, M600.2000, M100.3000, M300.2000, M300.3000, M100.2000, M100.4001 #### [facility] [address] [place], [address] HGB Normal 12.0-15.0 [facility] Comment on above: Result Comment: Canc elled via OM: Order cancelled - Patient discharged Performed By: #### M 600.2200, M600.2000, M100.3000, M300.2000, M300.3000, M100.2000, M100.4001 #### [facility] [address] [place], [address] MCH Normal 27.0-32.0 [facility] Comment on above: Result Comment: Canc elled via OM: Order cancelled - Patient discharged Performed By: #### M 600.2200, M600.2000, M100.3000, M300.2000, M300.3000, M100.2000, M100.4001 #### [facility] [address] [place], [address] MCHC Normal 32-36 [facility] Comment on above: Result Comment: Canc elled via OM: Order cancelled - Patient discharged Performed By: #### M 600.2200, M600.2000, M100.3000, M300.2000, M300.3000, M100.2000, M100.4001 #### [facility] [address] [place], [address] MCV Normal 81-99 [facility] Comment on above: Result Comment: Canc elled via OM: Order cancelled - Patient discharged Performed By: #### M 600.2200, M600.2000, M100.3000, M300.2000, M300.3000, M100.2000, M100.4001 #### [facility] [address] [place], [address] NEUT% Normal 47-70 [facility] Comment on above: Result Comment: Canc elled via OM: Order cancelled - Patient discharged Performed By: #### M 600.2200, M600.2000, M100.3000, M300.2000, M300.3000, M100.2000, M100.4001 #### [facility] [address] [place], [address] PLT Normal 150-450 [facility] Comment on above: Result Comment: Canc elled via OM: Order cancelled - Patient discharged Performed By: #### M 600.2200, M600.2000, M100.3000, M300.2000, M300.3000, M100.2000, M100.4001 #### [facility] [address] [place], [address] RBC Normal 4.2-5.4 [facility] Comment on above: Result Comment: Canc elled via OM: Order cancelled - Patient discharged Performed By: #### M 600.2200, M600.2000, M100.3000, M300.2000, M300.3000, M100.2000, M100.4001 #### [facility] [address] [facility] [id number] [phone] RDW CV Normal 11.6-14.6 [facility] Comment on above: Result Comment: Canc elled via OM: Order cancelled - Patient discharged Performed By: #### M 600.2200, M600.2000, M100.3000, M300.2000, M300.3000, M100.2000, M100.4001 #### [facility] [facility] [address] [place], [place], [phone] (163 RDW SD Normal 35.1-43.9 [facility] Comment on above: Result Comment: Canc elled via OM: Order cancelled - Patient discharged Performed By: #### M 600.2200, M600.2000, M100.3000, M300.2000, M300.3000, M100.2000, M100.4001 #### [facility] [address] [place], [place], [phone] (700 WBC Normal 4.4-11.0 [facility] Comment on above: Result Comment: Canc elled via OM: Order cancelled - Patient discharged Performed By: #### M 600.2200, M600.2000, M100.3000, M300.2000, M300.3000, M100.2000, M100.4001 #### [facility] [address] [place], [address] Basic Metabolic Profile (BMP )on 10-17-2024 BUN Normal 4-19 [facility] Comment on above: Result Comment: Canc elled via OM: Order cancelled - Patient discharged Performed By: #### M 600.2200, M600.2000, M100.3000, M300.2000, M300.3000, M100.2000, M100.4001 #### [facility] [address] [place], [place], [phone] (413 BUN/CRE Normal 10-20 [facility] Comment on above: Result Comment: Canc elled via OM: Order cancelled - Patient discharged Performed By: #### M 600.2200, M600.2000, M100.3000, M300.2000, M300.3000, M100.2000, M100.4001 #### [facility] [address] [place], [address] Calcium Normal 7.6-11.0 [facility] Comment on above: Result Comment: Canc elled via OM: Order cancelled - Patient discharged Performed By: #### M 600.2200, M600.2000, M100.3000, M300.2000, M300.3000, M100.2000, M100.4001 #### [facility] [address] [place], [address] CL Normal 98-108 [facility] Comment on above: Result Comment: Canc elled via OM: Order cancelled - Patient discharged Performed By: #### M 600.2200, M600.2000, M100.3000, M300.2000, M300.3000, M100.2000, M100.4001 #### [facility] [address] [place], [address] CO2 Normal 21.0-32.0 [facility] Comment on above: Result Comment: Canc elled via OM: Order cancelled - Patient discharged Performed By: #### M 600.2200, M600.2000, M100.3000, M300.2000, M300.3000, M100.2000, M100.4001 #### [facility] [address] [place], [address] CREAT,SERUM Normal 0.70-1.20 [facility] Comment on above: Result Comment: Canc elled via OM: Order cancelled - Patient discharged Performed By: #### M 600.2200, M600.2000, M100.3000, M300.2000, M300.3000, M100.2000, M100.4001 #### [facility] [address] [place], [address] eGFR Normal >60 [facility] Comment on above: Result Comment: Canc elled via OM: Order cancelled - Patient discharged Performed By: #### M 600.2200, M600.2000, M100.3000, M300.2000, M300.3000, M100.2000, M100.4001 #### [facility] [address] [place], [address] GAP Normal 5-15 [facility] Comment on above: Result Comment: Canc elled via OM: Order cancelled - Patient discharged Performed By: #### M 600.2200, M600.2000, M100.3000, M300.2000, M300.3000, M100.2000, M100.4001 #### [facility] [address] [place], [address] GLU Normal 70-99 [facility] Comment on above: Result Comment: Canc elled via OM: Order cancelled - Patient discharged Performed By: #### M 600.2200, M600.2000, M100.3000, M300.2000, M300.3000, M100.2000, M100.4001 #### [facility] [address] [place], [address] Potassium Normal 3.3-5.1 [facility] Comment on above: Result Comment: Canc elled via OM: Order cancelled - Patient discharged Performed By: #### M 600.2200, M600.2000, M100.3000, M300.2000, M300.3000, M100.2000, M100.4001 #### [facility] [address] [place], [address] Basic Metabolic Profile (BMP) Normal 133-145 [facility] Comment on above: Result Comment: Canc elled via OM: Order cancelled - Patient discharged Performed By: #### M 600.2200, M600.2000, M100.3000, M300.2000, M300.3000, M100.2000, M100.4001 #### [facility] [address] [place], [address] CBC W/Diff, Automatedon 04- Absolute Neut Normal 2.0-7.7 [facility] Comment on above: Result Comment: Canc elled via OM: Order cancelled - Patient discharged Performed By: #### M 600.2200, M600.2000, M100.3000, M300.2000, M300.3000, M100.2000, M100.4001 #### [facility] [address] [place], [place], [address] (900) HCT Normal 37-47 [facility] Comment on above: Result Comment: Canc elled via OM: Order cancelled - Patient discharged Performed By: #### M 600.2200, M600.2000, M100.3000, M300.2000, M300.3000, M100.2000, M100.4001 #### [facility] [address] [place], [address] HGB Normal 12.0-15.0 [facility] Comment on above: Result Comment: Canc elled via OM: Order cancelled - Patient discharged Performed By: #### M 600.2200, M600.2000, M100.3000, M300.2000, M300.3000, M100.2000, M100.4001 #### [facility] [address] [place], [address] MCH Normal 27.0-32.0 [facility] Comment on above: Result Comment: Canc elled via OM: Order cancelled - Patient discharged Performed By: #### M 600.2200, M600.2000, M100.3000, M300.2000, M300.3000, M100.2000, M100.4001 #### [facility] [address] [place], [place], [address] (213) MCHC Normal 32-36 [facility] Comment on above: Result Comment: Canc elled via OM: Order cancelled - Patient discharged Performed By: #### M 600.2200, M600.2000, M100.3000, M300.2000, M300.3000, M100.2000, M100.4001 #### [facility] [address] [place], [address] MCV Normal 81-99 [facility] Comment on above: Result Comment: Canc elled via OM: Order cancelled - Patient discharged Performed By: #### M 600.2200, M600.2000, M100.3000, M300.2000, M300.3000, M100.2000, M100.4001 #### [facility] [address] [place], [address] NEUT% Normal 47-70 [facility] Comment on above: Result Comment: Canc elled via OM: Order cancelled - Patient discharged Performed By: #### M 600.2200, M600.2000, M100.3000, M300.2000, M300.3000, M100.2000, M100.4001 #### [facility] [address] [place], [address] PLT Normal 150-450 [facility] Comment on above: Result Comment: Canc elled via OM: Order cancelled - Patient discharged Performed By: #### M 600.2200, M600.2000, M100.3000, M300.2000, M300.3000, M100.2000, M100.4001 #### [facility] [address] [place], [address] RBC Normal 4.2-5.4 [facility] Comment on above: Result Comment: Canc elled via OM: Order cancelled - Patient discharged Performed By: #### M 600.2200, M600.2000, M100.3000, M300.2000, M300.3000, M100.2000, M100.4001 #### [facility] [address] [place], [address] RDW CV Normal 11.6-14.6 [facility] Comment on above: Result Comment: Canc elled via OM: Order cancelled - Patient discharged Performed By: #### M 600.2200, M600.2000, M100.3000, M300.2000, M300.3000, M100.2000, M100.4001 #### [facility] [address] [place], [address] RDW SD Normal 35.1-43.9 [facility] Comment on above: Result Comment: Canc elled via OM: Order cancelled - Patient discharged Performed By: #### M 600.2200, M600.2000, M100.3000, M300.2000, M300.3000, M100.2000, M100.4001 #### [facility] [address] [place], [address] WBC Normal 4.4-11.0 [facility] Comment on above: Result Comment: Canc elled via OM: Order cancelled - Patient discharged Performed By: #### M 600.2200, M600.2000, M100.3000, M300.2000, M300.3000, M100.2000, M100.4001 #### [facility] [address] [place], [address] Synovial Fluid RBC, WBC AND Diffon 10-14-2024 PATH COM/Security ScorecardFL Reviewed Normal [facility] Comment on above: Result Comment: SEE REPORT IN PATIENT'S EMR AMENDED REPORT 10/14/24 1405 PATH COM/SYFL previously reported as: May follow Performed By: #### M 600.2200, M600.2000, M100.3000, M300.2000, M300.3000, M100.2000, M100.4001 #### [facility] [address] [place], [address] Basic Metabolic Profile (BMP )on 10-10-2024 BUN Normal 4-19 [facility] Comment on above: Result Comment: Canc elled via OM: Order cancelled - Patient discharged Performed By: #### M 600.2200, M600.2000, M100.3000, M300.2000, M300.3000, M100.2000, M100.4001 #### [facility] [address] [place], [address] BUN/CRE Normal 10-20 [facility] Comment on above: Result Comment: Canc elled via OM: Order cancelled - Patient discharged Performed By: #### M 600.2200, M600.2000, M100.3000, M300.2000, M300.3000, M100.2000, M100.4001 #### [facility] [address] [place], [address] Calcium Normal 7.6-11.0 [facility] Comment on above: Result Comment: Canc elled via OM: Order cancelled - Patient discharged Performed By: #### M 600.2200, M600.2000, M100.3000, M300.2000, M300.3000, M100.2000, M100.4001 #### [facility] [address] [place], [address] CL Normal 98-108 [facility] Comment on above: Result Comment: Canc elled via OM: Order cancelled - Patient discharged Performed By: #### M 600.2200, M600.2000, M100.3000, M300.2000, M300.3000, M100.2000, M100.4001 #### [facility] [address] [place], [address] CO2 Normal 21.0-32.0 [facility] Comment on above: Result Comment: Canc elled via OM: Order cancelled - Patient discharged Performed By: #### M 600.2200, M600.2000, M100.3000, M300.2000, M300.3000, M100.2000, M100.4001 #### [facility] [address] [place], [address] CREAT,SERUM Normal 0.70-1.20 [facility] Comment on above: Result Comment: Canc elled via OM: Order cancelled - Patient discharged Performed By: #### M 600.2200, M600.2000, M100.3000, M300.2000, M300.3000, M100.2000, M100.4001 #### [facility] [address] [place], [address] eGFR Normal >60 [facility] Comment on above: Result Comment: Canc elled via OM: Order cancelled - Patient discharged Performed By: #### M 600.2200, M600.2000, M100.3000, M300.2000, M300.3000, M100.2000, M100.4001 #### [facility] [address] [place], [address] GAP Normal 5-15 [facility] Comment on above: Result Comment: Canc elled via OM: Order cancelled - Patient discharged Performed By: #### M 600.2200, M600.2000, M100.3000, M300.2000, M300.3000, M100.2000, M100.4001 #### [facility] [address] [place], [address] GLU Normal 70-99 [facility] Comment on above: Result Comment: Canc elled via OM: Order cancelled - Patient discharged Performed By: #### M 600.2200, M600.2000, M100.3000, M300.2000, M300.3000, M100.2000, M100.4001 #### [facility] [address] [place], [address] Potassium Normal 3.3-5.1 [facility] Comment on above: Result Comment: Canc elled via OM: Order cancelled - Patient discharged Performed By: #### M 600.2200, M600.2000, M100.3000, M300.2000, M300.3000, M100.2000, M100.4001 #### [facility] [address] [place], [address] Basic Metabolic Profile (BMP) Normal 133-145 [facility] Comment on above: Result Comment: Canc elled via OM: Order cancelled - Patient discharged Performed By: #### M 600.2200, M600.2000, M100.3000, M300.2000, M300.3000, M100.2000, M100.4001 #### [facility] [address] [place], [address] CBC W/Diff, Automatedon 04 Absolute Neut Normal 2.0-7.7 [facility] Comment on above: Result Comment: Canc elled via OM: Order cancelled - Patient discharged Performed By: #### M 600.2200, M600.2000, M100.3000, M300.2000, M300.3000, M100.2000, M100.4001 #### [facility] [address] [place], [place], [phone] (811) HCT Normal 37-47 [facility] Comment on above: Result Comment: Canc elled via OM: Order cancelled - Patient discharged Performed By: #### M 600.2200, M600.2000, M100.3000, M300.2000, M300.3000, M100.2000, M100.4001 #### [facility] [address] [place], [address] HGB Normal 12.0-15.0 [facility] Comment on above: Result Comment: Canc elled via OM: Order cancelled - Patient discharged Performed By: #### M 600.2200, M600.2000, M100.3000, M300.2000, M300.3000, M100.2000, M100.4001 #### [facility] [address] [place], [address] MCH Normal 27.0-32.0 [facility] Comment on above: Result Comment: Canc elled via OM: Order cancelled - Patient discharged Performed By: #### M 600.2200, M600.2000, M100.3000, M300.2000, M300.3000, M100.2000, M100.4001 #### [facility] [address] [place], [address] MCHC Normal 32-36 [facility] Comment on above: Result Comment: Canc elled via OM: Order cancelled - Patient discharged Performed By: #### M 600.2200, M600.2000, M100.3000, M300.2000, M300.3000, M100.2000, M100.4001 #### [facility] [address] [place], [address] MCV Normal 81-99 [facility] Comment on above: Result Comment: Canc elled via OM: Order cancelled - Patient discharged Performed By: #### M 600.2200, M600.2000, M100.3000, M300.2000, M300.3000, M100.2000, M100.4001 #### [facility] [address] [place], [address] NEUT% Normal 47-70 [facility] Comment on above: Result Comment: Canc elled via OM: Order cancelled - Patient discharged Performed By: #### M 600.2200, M600.2000, M100.3000, M300.2000, M300.3000, M100.2000, M100.4001 #### [facility] [address] [place], [address] PLT Normal 150-450 [facility] Comment on above: Result Comment: Canc elled via OM: Order cancelled - Patient discharged Performed By: #### M 600.2200, M600.2000, M100.3000, M300.2000, M300.3000, M100.2000, M100.4001 #### [facility] [address] [place], [address] RBC Normal 4.2-5.4 [facility] Comment on above: Result Comment: Canc elled via OM: Order cancelled - Patient discharged Performed By: #### M 600.2200, M600.2000, M100.3000, M300.2000, M300.3000, M100.2000, M100.4001 #### [facility] [address] [place], [address] RDW CV Normal 11.6-14.6 [facility] Comment on above: Result Comment: Canc elled via OM: Order cancelled - Patient discharged Performed By: #### M 600.2200, M600.2000, M100.3000, M300.2000, M300.3000, M100.2000, M100.4001 #### [facility] [address] [place], [address] RDW SD Normal 35.1-43.9 [facility] Comment on above: Result Comment: Canc elled via OM: Order cancelled - Patient discharged Performed By: #### M 600.2200, M600.2000, M100.3000, M300.2000, M300.3000, M100.2000, M100.4001 #### [facility] [address] [place], [place], [phone] (205 WBC Normal 4.4-11.0 [facility] Comment on above: Result Comment: Canc elled via OM: Order cancelled - Patient discharged Performed By: #### M 600.2200, M600.2000, M100.3000, M300.2000, M300.3000, M100.2000, M100.4001 #### [facility] [address] [place], [place], [address] Vancomycin trough [Mass/Vol] Ordered By: Sixto Andrade on 10-06-2024 Vancomycin Level Trough 13.6 ug/mL 5.0-15.0 [facility] Comment on above: Recommended goal tro [...] therapy recommended for serious lifethreatening infections include:- Rxhzojgrmt-Wqlvhancjman-Ebwptnqmx (Ventilator/Healtcare Associated)-Sepsis PLEASE CONTACT PHARMACY SERVICES (#[id number]) FOR INTERPRETATIONOF RESULTS. Vancomycin, Trough Levelon 0 10-06-2024 VANCO, TROUGH 13.6 ug/mL Normal 5.0-15.0 [facility] Comment on above: Order Comment: Comme nts: DRAW 30 MIN PRIOR TO [id number] Result Comment: Zackery mmended goal trough ranges [...] (Ventilator/Healtcare Associated) -Sepsis PLEASE CONTACT PHARM[facility]Y SERVICES (#[id number]) FOR INTERPRETATION OF RESULTS. Performed By: #### M 600.2200, M600.2000, M100.3000, M300.2000, M300.3000, M100.2000, M100.4001 #### [facility] [address] [place], [place] [address]all [address]itesh. [place], [place], [address] Absolute neutrophil countOrd ered By: Rodrigo Sanches on 10-03-2024 Neutrophils (Bld) [#/Vol] 3.0 10*3/uL 2.0-7.7 [facility] Anion gap in Serum or Plasma Ordered By: Rodrigo Sanches on 10-03-2024 Anion gap [Moles/Vol] 11 mmol/L 11-14 [facility] BUN/creatinine ratioOrdered By: Rodrigo Sanches on 10-03-2024 Urea nitrogen/Creatinine [Mass ratio] 24.6 mg/mg High - [facility] Basic Metabolic Profile (BMP )on 10-03-2024 BUN/CRE 24.6 RATIO High 10-20 [facility] Comment on above: Performed By: #### M 600.2200, M600.2000, M100.3000, M300.2000, M300.3000, M100.2000, M100.4001 #### [facility] [address] [place], [address] Calcium [Mass/Vol] 9.2 mg/dL Normal 7.6-11.0 [facility] Comment on above: Performed By: #### M 600.2200, M600.2000, M100.3000, M300.2000, M300.3000, M100.2000, M100.4001 #### [facility] [address] [place], [address] Chloride [Moles/Vol] 100 mmol/L Normal 98-108 [facility] Comment on above: Performed By: #### M 600.2200, M600.2000, M100.3000, M300.2000, M300.3000, M100.2000, M100.4001 #### [facility] [address] [place], [address] CO2 [Moles/Vol] 27.3 mmol/L Normal 21.0-32.0 [facility] Comment on above: Performed By: #### M 600.2200, M600.2000, M100.3000, M300.2000, M300.3000, M100.2000, M100.4001 #### [facility] [address] [place], [address] Creatinine [Mass/Vol] 1.09 mg/dL Normal 0.70-1.20 [facility] Comment on above: Performed By: #### M 600.2200, M600.2000, M100.3000, M300.2000, M300.3000, M100.2000, M100.4001 #### [facility] [address] [place], [address] ECRCL 56.04 ml/min Normal 50-250 [facility] Comment on above: Performed By: #### M 600.2200, M600.2000, M100.3000, M300.2000, M300.3000, M100.2000, M100.4001 #### [facility] [address] [place], [address] GAP 11 Normal 5-15 [facility] Comment on above: Performed By: #### M 600.2200, M600.2000, M100.3000, M300.2000, M300.3000, M100.2000, M100.4001 #### [facility] [address] [place], [address] GFR/1.73 sq M.predicted among non-blacks MDRD (S/P/Bld) [Vol rate/Area] 53 mL/min/{1.73_m2} Low >60 [facility] Comment on above: Result Comment: mL/m in/1.73m2 CKD-EPI Creatinine Equation (2020) Performed By: #### M 600.2200, M600.2000, M100.3000, M300.2000, M300.3000, M100.2000, M100.4001 #### [facility] [address] [place], [address] Glucose [Mass/Vol] 96 mg/dL Normal 70-99 [facility] Comment on above: Performed By: #### M 600.2200, M600.2000, M100.3000, M300.2000, M300.3000, M100.2000, M100.4001 #### [facility] [address] [place], [address] Potassium [Moles/Vol] 4.4 mmol/L Normal 3.3-5.1 [facility] Comment on above: Performed By: #### M 600.2200, M600.2000, M100.3000, M300.2000, M300.3000, M100.2000, M100.4001 #### [facility] [address] [place], [address] Sodium [Moles/Vol] 139 mmol/L Normal 133-145 [facility] Comment on above: Performed By: #### M 600.2200, M600.2000, M100.3000, M300.2000, M300.3000, M100.2000, M100.4001 #### [facility] [address] [place], [address] Urea nitrogen [Mass/Vol] 27 mg/dL High 4-19 [facility] Comment on above: Performed By: #### M 600.2200, M600.2000, M100.3000, M300.2000, M300.3000, M100.2000, M100.4001 #### [facility] [address] [place], [address] Basophil percentageOrdered B y: Rodrigo Sanches on 10-03-2024 Basophils/100 WBC (Bld) 0.8 % 0-1 [facility] CBC W/Diff, Automatedon Absolute Lymph 1.20 X10 3/uL Normal 0.83-4.51 [facility] Comment on above: Performed By: #### M 600.2200, M600.2000, M100.3000, M300.2000, M300.3000, M100.2000, M100.4001 #### [facility] [address] [place], [address] Absolute Neut 3.0 X10 3/uL Normal 2.0-7.7 [facility] Comment on above: Performed By: #### M 600.2200, M600.2000, M100.3000, M300.2000, M300.3000, M100.2000, M100.4001 #### [facility] [address] [place], [address] Basophils/100 WBC (Bld) 0.8 % Normal 0-1 [facility] Comment on above: Performed By: #### M 600.2200, M600.2000, M100.3000, M300.2000, M300.3000, M100.2000, M100.4001 #### [facility] [address] [place], [address] Eosinophils/100 WBC (Bld) 5.5 % High 0-5 [facility] Comment on above: Performed By: #### M 600.2200, M600.2000, M100.3000, M300.2000, M300.3000, M100.2000, M100.4001 #### [facility] [address] [place], [address] Erythrocyte distribution width (RBC) [Ratio] 15.0 % High 11.6-14.6 [facility] Comment on above: Performed By: #### M 600.2200, M600.2000, M100.3000, M300.2000, M300.3000, M100.2000, M100.4001 #### [facility] [address] [place], [address] Hematocrit (Bld) [Volume fraction] 37.3 % Normal 37-47 [facility] Comment on above: Performed By: #### M 600.2200, M600.2000, M100.3000, M300.2000, M300.3000, M100.2000, M100.4001 #### [facility] [address] [place], [address] Hemoglobin (Bld) [Mass/Vol] 11.9 g/dL Low 12.0-15.0 [facility] Comment on above: Performed By: #### M 600.2200, M600.2000, M100.3000, M300.2000, M300.3000, M100.2000, M100.4001 #### [facility] [address] [place], [address] IG% 0.600 Normal 0.0-0.9 [facility] Comment on above: Result Comment: IG% - Immature Granulocytes (promyelocytes, myelocytes and metamyelocytes) > 1% indicates that a LEFT SHIFT is Present. Performed By: #### M 600.2200, M600.2000, M100.3000, M300.2000, M300.3000, M100.2000, M100.4001 #### [facility] [address] [place], [address] Lymphocytes/100 WBC (Bld) 22.7 % Normal 19-41 [facility] Comment on above: Performed By: #### M 600.2200, M600.2000, M100.3000, M300.2000, M300.3000, M100.2000, M100.4001 #### [facility] [address] [place], [address] MCH (RBC) [Entitic mass] 29.2 pg Normal 27.0-32.0 [facility] Comment on above: Performed By: #### M 600.2200, M600.2000, M100.3000, M300.2000, M300.3000, M100.2000, M100.4001 #### [facility] [address] [place], [address] MCHC (RBC) [Mass/Vol] 31.9 g/dL Low 32-36 [facility] Comment on above: Performed By: #### M 600.2200, M600.2000, M100.3000, M300.2000, M300.3000, M100.2000, M100.4001 #### [facility] [address] [place], [address] MCV (RBC) [Entitic vol] 91.6 fL Normal 81-99 [facility] Comment on above: Performed By: #### M 600.2200, M600.2000, M100.3000, M300.2000, M300.3000, M100.2000, M100.4001 #### [facility] [address] [place], [address] Monocytes/100 WBC (Bld) 13.4 % High 0-10 [facility] Comment on above: Performed By: #### M 600.2200, M600.2000, M100.3000, M300.2000, M300.3000, M100.2000, M100.4001 #### [facility] [address] [place], [address] Neutrophils/100 WBC (Bld) 57.0 % Normal 47-70 [facility] Comment on above: Performed By: #### M 600.2200, M600.2000, M100.3000, M300.2000, M300.3000, M100.2000, M100.4001 #### [facility] [address] [place], [address] Nucleated RBC (Bld) [#/Vol] 0 10*3/uL Normal 0-5 [facility] Comment on above: Performed By: #### M 600.2200, M600.2000, M100.3000, M300.2000, M300.3000, M100.2000, M100.4001 #### [facility] [address] [place], [address] Platelet mean volume (Bld) [Entitic vol] 10.3 fL Normal 6.2-12.0 [facility] Comment on above: Performed By: #### M 600.2200, M600.2000, M100.3000, M300.2000, M300.3000, M100.2000, M100.4001 #### [facility] [address] [place], [address] Platelets (Bld) [#/Vol] 247 10*3/uL Normal 150-450 [facility] Comment on above: Performed By: #### M 600.2200, M600.2000, M100.3000, M300.2000, M300.3000, M100.2000, M100.4001 #### [facility] [address] [place], [address] RBC (Bld) [#/Vol] 4.07 10*6/uL Low 4.2-5.4 [facility] Comment on above: Performed By: #### M 600.2200, M600.2000, M100.3000, M300.2000, M300.3000, M100.2000, M100.4001 #### [facility] [address] [place], [address] RDW SD 50.2 fl High 35.1-43.9 [facility] Comment on above: Performed By: #### M 600.2200, M600.2000, M100.3000, M300.2000, M300.3000, M100.2000, M100.4001 #### [facility] [address] [place], [address] WBC (Bld) [#/Vol] 5.3 10*3/uL Normal 4.4-11.0 [facility] Comment on above: Performed By: #### M 600.2200, M600.2000, M100.3000, M300.2000, M300.3000, M100.2000, M100.4001 #### [facility] [address] [place], [address] Carbon dioxide, total [Moles /volume] in Central venous bloodOrdered By: Rodrigo Sanches on 10-03-2024 CO2 [Moles/Vol] 27.3 mmol/L 21.0-32.0 [facility] Chloride assayOrdered By: Neftaly Sanches on 10-03-2024 Chloride [Moles/Vol] 100 mmol/L 98-108 [facility] Eosinophil percentageOrdered By: Rodrigo Sanches on 10-03-2024 Eosinophils/100 WBC (Bld) 5.5 % High 0-5 [facility] Erythrocyte distribution wid th (RBC) [Ratio]Ordered By: Rodrigo Sanches on 10-03-2024 Erythrocyte distribution width (RBC) [Entitic vol] 50.2 fL High 35.1-43.9 [facility] Erythrocyte distribution wid th ratioOrdered By: [facility]24 Erythrocyte distribution width (RBC) [Ratio] 15.0 % High 11.6-14.6 [facility] Estimation of creatinine darrell aranceOrdered By: Rodrigo Sanches on 10-03-2024 Estimated Creatinine Clearance Calc 56.04 ml/min 50-250 [facility] GFR/1.73 sq M.predicted hans g non-blacks MDRD (S/P/Bld) [Vol rate/Area]Ordered By: Rodrigo Sanches on 10-03-2024 Estimated GFR (MDRD) Non-Af Amer 53 Low >60 [facility] Comment on above: mL/min/1.73m2 CKD-EP I Creatinine Equation (2020) Hematocrit Auto (Bld) [Volum e fraction]Ordered By: Rodrigo Sanches 10-03-2024 Hematocrit (Bld) [Volume fraction] 37.3 % 37-47 [facility] Hemoglobin measurementOrdere d By: Rodrigo Sanches 10-03-2024 Hemoglobin (Bld) [Mass/Vol] 11.9 g/dL Low 12.0-15.0 [facility] Immature granulocytes/100 WB C Auto (Bld)Ordered By: Rodrigo Sanches 10-03-2024 Immature granulocytes/100 WBC (Bld) 0.600 % 0.0-0.9 [facility] Comment on above: IG% - Immature Granu locytes (promyelocytes, myelocytes and metamyelocytes) > 1% indicates that a LEFT SHIFT is Present. Lymphocytes Auto (Unsp spec) [#/Vol]Ordered By: Rodrigo Sanches 10-03-2024 Lymphocytes (Bld) [#/Vol] 1.20 10*3/uL 0.83-4.51 [facility] Lymphocytes/100 WBC Auto (Un sp spec)Ordered By: Rodrigo Sanches 10-03-2024 Lymphocytes/100 WBC (Bld) 22.7 % 19-41 [facility] MCV (mean corpuscular volume ) determinationOrdered By: Rodrigo Sanches 10-03-2024 MCV (RBC) [Entitic vol] 91.6 fL 81-99 [facility] Mean corpuscular hemoglobin (MCH) determinationOrdered By: Rodrigo Sanches on 10-03-2024 MCH (RBC) [Entitic mass] 29.2 pg 27.0-32.0 [facility] Mean corpuscular hemoglobin concentration (MCHC) determinationOrdered By: Rodrigo Sanches on 10-03-2024 MCHC (RBC) [Mass/Vol] 31.9 g/dL Low 32-36 [facility] Mean platelet volume determi nationOrdered By: Rodrigo Sanches on 10-03-2024 Platelet mean volume (Bld) [Entitic vol] 10.3 fL 6.2-12.0 [facility] Monocyte percentageOrdered B y: Rodrigo Sanches on 10-03-2024 Monocytes/100 WBC (Bld) 13.4 % High 0-10 [facility] Neutrophil percentageOrdered By: Rodrigo Sanches on 10-03-2024 Neutrophils/100 WBC (Bld) 57.0 % 47-70 [facility] Nucleated red blood cell per centageOrdered By: Rodrigo Sanches on 10-03-2024 Nucleated RBC/100 WBC (Bld) [Ratio] 0 % 0-5 [facility] Platelet countOrdered By: Neftaly Sanches on 10-03-2024 Platelets (Bld) [#/Vol] 247 10*3/uL 150-450 [facility] Potassium (Unsp spec) [Mass/ Vol]Ordered By: Rodrigo Sanches on 10-03-2024 Potassium [Moles/Vol] 4.4 mmol/L 3.3-5.1 [facility] RBC Auto (Bld) [#/Vol]Ordere d By: Rodrigo Sanches on 10-03-2024 RBC (Bld) [#/Vol] 4.07 10*6/uL Low 4.2-5.4 [facility] Serum creatinine measurement (mass/volume)Ordered By: Rodrigo Sanches on 10-03-2024 Creatinine [Mass/Vol] 1.09 mg/dL 0.70-1.20 [facility] Serum glucose measurement (m ass/volume)Ordered By: Rodrigo Sanches on 10-03-2024 Glucose [Mass/Vol] 96 mg/dL 70-99 [facility] Serum or plasma calcium lisa urement (mass/volume)Ordered By: Rodrigo Sanches on 10-03-2024 Calcium [Mass/Vol] 9.2 mg/dL 7.6-11.0 [facility] Serum or plasma urea nitroge n measurement (mass/volume)Ordered By: Rodrigo Myron on 10-03-2024 Urea nitrogen [Mass/Vol] 27 mg/dL High 4-19 [facility] Sodium levelOrdered By: Rodrigo Sanches on 10-03-2024 Sodium [Moles/Vol] 139 mmol/L 133-145 [facility] White blood cell (WBC) count Ordered By: Rodrigo Sanches on 10-03-2024 WBC (Bld) [#/Vol] 5.3 10*3/uL 4.4-11.0 [facility] Vancomycin, Trough Levelon 0 10-01-2024 VANCO, TROUGH 13.2 ug/mL Normal 5.0-15.0 [facility] Comment on above: Order Comment: Comme nts: Trough to be drawn 30 mins prior to scheduled [id number] Result Comment: Zackery mmended goal trough ranges [...] (Ventilator/Healtcare Associated) -Sepsis PLEASE CONTACT PHARMACY SERVICES (#[id number]) FOR INTERPRETATION OF RESULTS. Performed By: #### M 600.2200, M600.2000, M100.3000, M300.2000, M300.3000, M100.2000, M100.4001 #### [facility] [address] [place], [address] Vancomycin, Trough Levelon 0 09-29-2024 VANCO, TROUGH 15.6 ug/mL High 5.0-15.0 [facility] Comment on above: Order Comment: Comme nts: DRAW 30 MIN PRIOR TO [id number] Result Comment: Zackery mmended goal trough ranges [...] (Ventilator/Healtcare Associated) -Sepsis PLEASE CONTACT PHARMACY SERVICES (#[id number]) FOR INTERPRETATION OF RESULTS. Performed By: #### M 600.2200, M600.2000, M100.3000, M300.2000, M300.3000, M100.2000, M100.4001 #### [facility] [address] [place], [address] Basic Metabolic Profile (BMP )on 09-26-2024 BUN/CRE 25.8 RATIO High 10-20 [facility] Comment on above: Performed By: #### M 600.2200, M600.2000, M100.3000, M300.2000, M300.3000, M100.2000, M100.4001 #### [facility] [address] [place], [address] Calcium [Mass/Vol] 9.5 mg/dL Normal 7.6-11.0 [facility] Comment on above: Performed By: #### M 600.2200, M600.2000, M100.3000, M300.2000, M300.3000, M100.2000, M100.4001 #### [facility] [address] [place], [address] Chloride [Moles/Vol] 100 mmol/L Normal 98-108 [facility] Comment on above: Performed By: #### M 600.2200, M600.2000, M100.3000, M300.2000, M300.3000, M100.2000, M100.4001 #### [facility] [address] [place], [address] CO2 [Moles/Vol] 27.3 mmol/L Normal 21.0-32.0 [facility] Comment on above: Performed By: #### M 600.2200, M600.2000, M100.3000, M300.2000, M300.3000, M100.2000, M100.4001 #### [facility] [address] [place], [address] Creatinine [Mass/Vol] 1.13 mg/dL Normal 0.70-1.20 [facility] Comment on above: Performed By: #### M 600.2200, M600.2000, M100.3000, M300.2000, M300.3000, M100.2000, M100.4001 #### [facility] [address] [place], [address] ECRCL 54.32 ml/min Normal 50-250 [facility] Comment on above: Performed By: #### M 600.2200, M600.2000, M100.3000, M300.2000, M300.3000, M100.2000, M100.4001 #### [facility] [address] [place], [address] GAP 12 Normal 5-15 [facility] Comment on above: Performed By: #### M 600.2200, M600.2000, M100.3000, M300.2000, M300.3000, M100.2000, M100.4001 #### [facility] [address] [place], [address] GFR/1.73 sq M.predicted among non-blacks MDRD (S/P/Bld) [Vol rate/Area] 51 mL/min/{1.73_m2} Low >60 [facility] Comment on above: Result Comment: mL/m in/1.73m2 CKD-EPI Creatinine Equation (2020) Performed By: #### M 600.2200, M600.2000, M100.3000, M300.2000, M300.3000, M100.2000, M100.4001 #### [facility] [address] [place], [address] Glucose [Mass/Vol] 100 mg/dL High 70-99 [facility] Comment on above: Performed By: #### M 600.2200, M600.2000, M100.3000, M300.2000, M300.3000, M100.2000, M100.4001 #### [facility] [address] [place], [address] Potassium [Moles/Vol] 5.0 mmol/L Normal 3.3-5.1 [facility] Comment on above: Performed By: #### M 600.2200, M600.2000, M100.3000, M300.2000, M300.3000, M100.2000, M100.4001 #### [facility] [address] [place], [address] Sodium [Moles/Vol] 139 mmol/L Normal 133-145 [facility] Comment on above: Performed By: #### M 600.2200, M600.2000, M100.3000, M300.2000, M300.3000, M100.2000, M100.4001 #### [facility] [address] [place], [address] Urea nitrogen [Mass/Vol] 29 mg/dL High 4-19 [facility] Comment on above: Performed By: #### M 600.2200, M600.2000, M100.3000, M300.2000, M300.3000, M100.2000, M100.4001 #### [facility] [address] [place], [address] CBC W/Diff, Automatedon 03-2 Absolute Lymph 1.52 X10 3/uL Normal 0.83-4.51 [facility] Comment on above: Performed By: #### M 600.2200, M600.2000, M100.3000, M300.2000, M300.3000, M100.2000, M100.4001 #### [facility] [address] [place], [address] Absolute Neut 5.2 X10 3/uL Normal 2.0-7.7 [facility] Comment on above: Performed By: #### M 600.2200, M600.2000, M100.3000, M300.2000, M300.3000, M100.2000, M100.4001 #### [facility] [address] [place], [address] Basophils/100 WBC (Bld) 1.0 % Normal 0-1 [facility] Comment on above: Performed By: #### M 600.2200, M600.2000, M100.3000, M300.2000, M300.3000, M100.2000, M100.4001 #### [facility] [address] [place], [address] Eosinophils/100 WBC (Bld) 3.9 % Normal 0-5 [facility] Comment on above: Performed By: #### M 600.2200, M600.2000, M100.3000, M300.2000, M300.3000, M100.2000, M100.4001 #### [facility] [address] [place], [address] Erythrocyte distribution width (RBC) [Ratio] 14.6 % Normal 11.6-14.6 [facility] Comment on above: Performed By: #### M 600.2200, M600.2000, M100.3000, M300.2000, M300.3000, M100.2000, M100.4001 #### [facility] [address] [place], [address] Hematocrit (Bld) [Volume fraction] 37.0 % Normal 37-47 [facility] Comment on above: Performed By: #### M 600.2200, M600.2000, M100.3000, M300.2000, M300.3000, M100.2000, M100.4001 #### [facility] [address] [place], [address] Hemoglobin (Bld) [Mass/Vol] 12.1 g/dL Normal 12.0-15.0 [facility] Comment on above: Performed By: #### M 600.2200, M600.2000, M100.3000, M300.2000, M300.3000, M100.2000, M100.4001 #### [facility] [address] [place], [address] IG% 0.800 Normal 0.0-0.9 [facility] Comment on above: Result Comment: IG% - Immature Granulocytes (promyelocytes, myelocytes and metamyelocytes) > 1% indicates that a LEFT SHIFT is Present. Performed By: #### M 600.2200, M600.2000, M100.3000, M300.2000, M300.3000, M100.2000, M100.4001 #### [facility] [address] [place], [address] Lymphocytes/100 WBC (Bld) 19.3 % Normal 19-41 [facility] Comment on above: Performed By: #### M 600.2200, M600.2000, M100.3000, M300.2000, M300.3000, M100.2000, M100.4001 #### [facility] [address] [place], [address] MCH (RBC) [Entitic mass] 29.7 pg Normal 27.0-32.0 [facility] Comment on above: Performed By: #### M 600.2200, M600.2000, M100.3000, M300.2000, M300.3000, M100.2000, M100.4001 #### [facility] [address] [place], [address] MCHC (RBC) [Mass/Vol] 32.7 g/dL Normal 32-36 [facility] Comment on above: Performed By: #### M 600.2200, M600.2000, M100.3000, M300.2000, M300.3000, M100.2000, M100.4001 #### [facility] [address] [place], [address] MCV (RBC) [Entitic vol] 90.9 fL Normal 81-99 [facility] Comment on above: Performed By: #### M 600.2200, M600.2000, M100.3000, M300.2000, M300.3000, M100.2000, M100.4001 #### [facility] [address] [place], [address] Monocytes/100 WBC (Bld) 8.5 % Normal 0-10 [facility] Comment on above: Performed By: #### M 600.2200, M600.2000, M100.3000, M300.2000, M300.3000, M100.2000, M100.4001 #### [facility] [address] [place], [address] Neutrophils/100 WBC (Bld) 66.5 % Normal 47-70 [facility] Comment on above: Performed By: #### M 600.2200, M600.2000, M100.3000, M300.2000, M300.3000, M100.2000, M100.4001 #### [facility] [address] [place], [address] Nucleated RBC (Bld) [#/Vol] 0 10*3/uL Normal 0-5 [facility] Comment on above: Performed By: #### M 600.2200, M600.2000, M100.3000, M300.2000, M300.3000, M100.2000, M100.4001 #### [facility] [address] [place], [address] Platelet mean volume (Bld) [Entitic vol] 10.2 fL Normal 6.2-12.0 [facility] Comment on above: Performed By: #### M 600.2200, M600.2000, M100.3000, M300.2000, M300.3000, M100.2000, M100.4001 #### [facility] [address] [place], [address] Platelets (Bld) [#/Vol] 390 10*3/uL Normal 150-450 [facility] Comment on above: Performed By: #### M 600.2200, M600.2000, M100.3000, M300.2000, M300.3000, M100.2000, M100.4001 #### [facility] [address] [place], [address] RBC (Bld) [#/Vol] 4.07 10*6/uL Low 4.2-5.4 [facility] Comment on above: Performed By: #### M 600.2200, M600.2000, M100.3000, M300.2000, M300.3000, M100.2000, M100.4001 #### [facility] [address] [place], [address] RDW SD 47.8 fl High 35.1-43.9 [facility] Comment on above: Performed By: #### M 600.2200, M600.2000, M100.3000, M300.2000, M300.3000, M100.2000, M100.4001 #### [facility] [address] [place], [address] WBC (Bld) [#/Vol] 7.9 10*3/uL Normal 4.4-11.0 [facility] Comment on above: Performed By: #### M 600.2200, M600.2000, M100.3000, M300.2000, M300.3000, M100.2000, M100.4001 #### [facility] [address] [place], [place], [id number] Vancomycin, Trough Levelon 0 09-24-2024 VANCO, TROUGH 13.3 ug/mL Normal 5.0-15.0 [facility] Comment on above: Order Comment: Comme nts: Trough to be drawn 30 mins prior to scheduled [id number] Result Comment: Zackery mmended goal trough ranges [...] (Ventilator/Healtcare Associated) -Sepsis PLEASE CONTACT PHARMACY SERVICES (#[id number]) FOR INTERPRETATION OF RESULTS. Performed By: #### M 600.2200, M600.2000, M100.3000, M300.2000, M300.3000, M100.2000, M100.4001 #### [facility] [address] [place], [place], [id number] Vancomycin, Trough Levelon 0 09-22-2024 VANCO, TROUGH 12.4 ug/mL Normal 5.0-15.0 [facility] Comment on above: Order Comment: [...] (Ventilator/Healtcare Associated) -Sepsis PLEASE CONTACT PHARMACY SERVICES (#[id number]) FOR INTERPRETATION OF RESULTS. Performed By: #### M 600.2200, M600.2000, M100.3000, M300.2000, M300.3000, M100.2000, M100.4001 #### [facility] [address] [place], [address] Bilirubin, totalOrdered By: Rodrigo Sanches on 09-21-2024 Bilirubin [Mass/Vol] 0.22 mg/dL 0.00-1.30 [facility] Comprehensive Metabolic Prof ilon 09-21-2024 Albumin [Mass/Vol] 3.2 g/dL Low 3.4-4.8 [facility] Comment on above: Performed By: #### M 600.2200, M600.2000, M100.3000, M300.2000, M300.3000, M100.2000, M100.4001 #### [facility] [address] [place], [address] Albumin/Globulin [Mass ratio] 0.9 {ratio} Normal 0.9-2.4 [facility] Comment on above: Performed By: #### M 600.2200, M600.2000, M100.3000, M300.2000, M300.3000, M100.2000, M100.4001 #### [facility] [address] [place], [address] ALK PHOS 120 U/L High 35-104 [facility] Comment on above: Performed By: #### M 600.2200, M600.2000, M100.3000, M300.2000, M300.3000, M100.2000, M100.4001 #### [facility] [address] [place], [address] ALT [Catalytic activity/Vol] 15 U/L Normal <=34 [facility] Comment on above: Performed By: #### M 600.2200, M600.2000, M100.3000, M300.2000, M300.3000, M100.2000, M100.4001 #### [facility] [address] [place], [address] AST [Catalytic activity/Vol] 23 U/L Normal <=31 [facility] Comment on above: Performed By: #### M 600.2200, M600.2000, M100.3000, M300.2000, M300.3000, M100.2000, M100.4001 #### [facility] [address] [place] [place], [address] Bilirubin [Mass/Vol] 0.22 mg/dL Normal 0.00-1.30 [facility] Comment on above: Performed By: #### M 600.2200, M600.2000, M100.3000, M300.2000, M300.3000, M100.2000, M100.4001 #### [facility] [address] [place], [address] BUN/CRE 21.1 RATIO High 10-20 [facility] Comment on above: Performed By: #### M 600.2200, M600.2000, M100.3000, M300.2000, M300.3000, M100.2000, M100.4001 #### [facility] [address] [place], [address] Calcium [Mass/Vol] 9.2 mg/dL Normal 7.6-11.0 [facility] Comment on above: Performed By: #### M 600.2200, M600.2000, M100.3000, M300.2000, M300.3000, M100.2000, M100.4001 #### [facility] [address] [place], [address] Chloride [Moles/Vol] 99 mmol/L Normal 98-108 [facility] Comment on above: Performed By: #### M 600.2200, M600.2000, M100.3000, M300.2000, M300.3000, M100.2000, M100.4001 #### [facility] [address] [place], [address] CO2 [Moles/Vol] 27.1 mmol/L Normal 21.0-32.0 [facility] Comment on above: Performed By: #### M 600.2200, M600.2000, M100.3000, M300.2000, M300.3000, M100.2000, M100.4001 #### [facility] [address] [place], [address] ECRCL 51.50 ml/min Normal 50-250 [facility] Comment on above: Performed By: #### M 600.2200, M600.2000, M100.3000, M300.2000, M300.3000, M100.2000, M100.4001 #### [facility] [address] [place], [address] GAP 12 Normal 5-15 [facility] Comment on above: Performed By: #### M 600.2200, M600.2000, M100.3000, M300.2000, M300.3000, M100.2000, M100.4001 #### [facility] [address] [place], [place], [id number] [phone] GFR/1.73 sq M.predicted among non-blacks MDRD (S/P/Bld) [Vol rate/Area] 48 mL/min/{1.73_m2} Low >60 [facility] Comment on above: Result Comment: mL/m in/1.73m2 CKD-EPI Creatinine Equation (2020) Performed By: #### M 600.2200, M600.2000, M100.3000, M300.2000, M300.3000, M100.2000, M100.4001 #### [facility] [address] [place], [address] Globulin (S) [Mass/Vol] 3.5 g/dL Normal 2.2-4.2 [facility] Comment on above: Performed By: #### M 600.2200, M600.2000, M100.3000, M300.2000, M300.3000, M100.2000, M100.4001 #### [facility] [address] [place], [address] Potassium [Moles/Vol] 4.6 mmol/L Normal 3.3-5.1 [facility] Comment on above: Performed By: #### M 600.2200, M600.2000, M100.3000, M300.2000, M300.3000, M100.2000, M100.4001 #### [facility] [address] [place], [address] Sodium [Moles/Vol] 138 mmol/L Normal 133-145 [facility] Comment on above: Performed By: #### M 600.2200, M600.2000, M100.3000, M300.2000, M300.3000, M100.2000, M100.4001 #### [facility] [address] [place], [address] T PROT 6.7 g/dL Normal 5.9-8.4 [facility] Comment on above: Performed By: #### M 600.2200, M600.2000, M100.3000, M300.2000, M300.3000, M100.2000, M100.4001 #### [facility] [address] [place], [address] Creatinine [Mass/Vol] 1.19 mg/dL Normal 0.70-1.20 [facility] Comment on above: Performed By: #### M 600.2200, M600.2000, M100.3000, M300.2000, M300.3000, M100.2000, M100.4001 #### [facility] [address] [place], [address] Glucose [Mass/Vol] 99 mg/dL Normal 70-99 [facility] Comment on above: Performed By: #### M 600.2200, M600.2000, M100.3000, M300.2000, M300.3000, M100.2000, M100.4001 #### [facility] [address] [place], [place], [address] Urea nitrogen [Mass/Vol] 25 mg/dL High 4-19 [facility] Comment on above: Performed By: #### M 600.2200, M600.2000, M100.3000, M300.2000, M300.3000, M100.2000, M100.4001 #### [facility] [address] [place], [address] Laboratory - Chemistry and C hemistry - challengeOrdered By: Rodrigo Sanches on 09-21-2024 AST [Catalytic activity/Vol] 23 U/L <32 [facility] Serum globulin measurementOr dered By: Rodrigo Sanches 09-21-2024 Globulin (S) [Mass/Vol] 3.5 g/dL 2.2-4.2 [facility] Serum or plasma alanine gao otransferase (ALT) measurementOrdered By: Rodrigo Sanches on 09-21-2024 ALT [Catalytic activity/Vol] 15 U/L <35 [facility] Serum or plasma albumin lisa urement (mass/volume)Ordered By: Rodrigo Sanches 09-21-2024 Albumin [Mass/Vol] 3.2 g/dL Low 3.4-4.8 [facility] Serum or plasma albumin/glob ulin mass ratioOrdered By: Rodrigo Sanches 09-21-2024 Albumin/Globulin [Mass ratio] 0.9 {ratio} 0.9-2.4 [facility] Serum or plasma alkaline bee sphatase measurementOrdered By: Rodrigo Sanches 09-21-2024 ALP [Catalytic activity/Vol] 120 U/L High 35-104 [facility] Total proteinOrdered By: Rodrigo Sanches 09-21-2024 Protein [Mass/Vol] 6.7 g/dL 5.9-8.4 [facility] Vancomycin, Trough Levelon 0 - VANCO, TROUGH 9.9 ug/mL Normal 5.0-15.0 [facility] Comment on above: Order Comment: 0800 Result Comment: VANC OMYCIN STANDARED DRUG THERAPY TROUGH LEVEL: 5.0 - 15.0 mg/L VANCOMYCIN HIGH INTENSITY THERAPY TROUGH LEVEL: 15.0 - 20.0 mg/L High Intensity therapy recommended for serious life threatening infections include: - Meningitis -Endocarditis -Pneumonia (Ventilator/Healtcare Associated) -Sepsis PLEASE CONTACT PHARMACY SERVICES (#[id number]) FOR INTERPRETATION OF RESULTS. AMENDED REPORT 09/20/24 [...] (Ventilator/Healtcare Associated) -Sepsis PLEASE CONTACT PHARMACY SERVICES (#[id number]) FOR INTERPRETATION OF RESULTS. Recommended goal trough [...] (Ventilator/Healtcare Associated) -Sepsis PLEASE CONTACT PHARMACY SERVICES (#[id number]) FOR INTERPRETATION OF RESULTS. Performed By: #### M 600.2200, M600.2000, M100.3000, M300.2000, M300.3000, M100.2000, M100.4001 #### [facility] [address] [place], [place], [address] Basic Metabolic Profile (BMP )on 09-19-2024 BUN/CRE 18.6 RATIO Normal 04-21 [facility] Comment on above: Performed By: #### M 600.2200, M600.2000, M100.3000, M300.2000, M300.3000, M100.2000, M100.4001 #### [facility] [address] [place], [address] Calcium [Mass/Vol] 9.7 mg/dL Normal 7.6-11.0 [facility] Comment on above: Performed By: #### M 600.2200, M600.2000, M100.3000, M300.2000, M300.3000, M100.2000, M100.4001 #### [facility] [address] [place], [address] Chloride [Moles/Vol] 97 mmol/L Low 98-108 [facility] Comment on above: Performed By: #### M 600.2200, M600.2000, M100.3000, M300.2000, M300.3000, M100.2000, M100.4001 #### [facility] [address] [place], [address] CO2 [Moles/Vol] 30.4 mmol/L Normal 21.0-32.0 [facility] Comment on above: Performed By: #### M 600.2200, M600.2000, M100.3000, M300.2000, M300.3000, M100.2000, M100.4001 #### [facility] [address] [place], [address] Creatinine [Mass/Vol] 1.07 mg/dL Normal 0.70-1.20 [facility] Comment on above: Performed By: #### M 600.2200, M600.2000, M100.3000, M300.2000, M300.3000, M100.2000, M100.4001 #### [facility] [address] [place], [address] ECRCL 57.28 ml/min Normal 50-250 [facility] Comment on above: Performed By: #### M 600.2200, M600.2000, M100.3000, M300.2000, M300.3000, M100.2000, M100.4001 #### [facility] [address] [place], [address] GAP 14 Normal 5-15 [facility] Comment on above: Performed By: #### M 600.2200, M600.2000, M100.3000, M300.2000, M300.3000, M100.2000, M100.4001 #### [facility] [address] [place], [address] GFR/1.73 sq M.predicted among non-blacks MDRD (S/P/Bld) [Vol rate/Area] 54 mL/min/{1.73_m2} Low >60 [facility] Comment on above: Result Comment: mL/m in/1.73m2 CKD-EPI Creatinine Equation (2020) Performed By: #### M 600.2200, M600.2000, M100.3000, M300.2000, M300.3000, M100.2000, M100.4001 #### [facility] [address] [place], [address] Glucose [Mass/Vol] 101 mg/dL High 70-99 [facility] Comment on above: Performed By: #### M 600.2200, M600.2000, M100.3000, M300.2000, M300.3000, M100.2000, M100.4001 #### [facility] [address] [place], [address] Potassium [Moles/Vol] 4.6 mmol/L Normal 3.3-5.1 [facility] Comment on above: Performed By: #### M 600.2200, M600.2000, M100.3000, M300.2000, M300.3000, M100.2000, M100.4001 #### [facility] [address] [place], [address] Sodium [Moles/Vol] 142 mmol/L Normal 133-145 [facility] Comment on above: Performed By: #### M 600.2200, M600.2000, M100.3000, M300.2000, M300.3000, M100.2000, M100.4001 #### [facility] [address] [place], [address] Urea nitrogen [Mass/Vol] 20 mg/dL High 4-19 [facility] Comment on above: Performed By: #### M 600.2200, M600.2000, M100.3000, M300.2000, M300.3000, M100.2000, M100.4001 #### [facility] [address] [place], [address] CBC W/Diff, Automatedon 03-2 0-2024 Absolute Lymph 1.49 X10 3/uL Normal 0.83-4.51 [facility] Comment on above: Performed By: #### M 600.2200, M600.2000, M100.3000, M300.2000, M300.3000, M100.2000, M100.4001 #### [facility] [address] [place], [address] Absolute Neut 7.6 X10 3/uL Normal 2.0-7.7 [facility] Comment on above: Performed By: #### M 600.2200, M600.2000, M100.3000, M300.2000, M300.3000, M100.2000, M100.4001 #### [facility] [address] [place], [address] Basophils/100 WBC (Bld) 0.8 % Normal 0-1 [facility] Comment on above: Performed By: #### M 600.2200, M600.2000, M100.3000, M300.2000, M300.3000, M100.2000, M100.4001 #### [facility] [address] [place], [address] Eosinophils/100 WBC (Bld) 2.9 % Normal 0-5 [facility] Comment on above: Performed By: #### M 600.2200, M600.2000, M100.3000, M300.2000, M300.3000, M100.2000, M100.4001 #### [facility] [address] [place], [address] Erythrocyte distribution width (RBC) [Ratio] 14.1 % Normal 11.6-14.6 [facility] Comment on above: Performed By: #### M 600.2200, M600.2000, M100.3000, M300.2000, M300.3000, M100.2000, M100.4001 #### [facility] [address] [place], [address] Hematocrit (Bld) [Volume fraction] 38.9 % Normal 37-47 [facility] Comment on above: Performed By: #### M 600.2200, M600.2000, M100.3000, M300.2000, M300.3000, M100.2000, M100.4001 #### [facility] [address] [place], [address] Hemoglobin (Bld) [Mass/Vol] 12.3 g/dL Normal 12.0-15.0 [facility] Comment on above: Performed By: #### M 600.2200, M600.2000, M100.3000, M300.2000, M300.3000, M100.2000, M100.4001 #### [facility] [address] [place], [address] IG% 1.200 High 0.0-0.9 [facility] Comment on above: Result Comment: IG% - Immature Granulocytes (promyelocytes, myelocytes and metamyelocytes) > 1% indicates that a LEFT SHIFT is Present. Performed By: #### M 600.2200, M600.2000, M100.3000, M300.2000, M300.3000, M100.2000, M100.4001 #### [facility] [address] [place], [address] Lymphocytes/100 WBC (Bld) 14.6 % Low 19-41 [facility] Comment on above: Performed By: #### M 600.2200, M600.2000, M100.3000, M300.2000, M300.3000, M100.2000, M100.4001 #### [facility] [address] [place], [address] MCH (RBC) [Entitic mass] 29.4 pg Normal 27.0-32.0 [facility] Comment on above: Performed By: #### M 600.2200, M600.2000, M100.3000, M300.2000, M300.3000, M100.2000, M100.4001 #### [facility] [address] [place], [address] MCHC (RBC) [Mass/Vol] 31.6 g/dL Low 32-36 [facility] Comment on above: Performed By: #### M 600.2200, M600.2000, M100.3000, M300.2000, M300.3000, M100.2000, M100.4001 #### [facility] [address] [place], [address] MCV (RBC) [Entitic vol] 93.1 fL Normal 81-99 [facility] Comment on above: Performed By: #### M 600.2200, M600.2000, M100.3000, M300.2000, M300.3000, M100.2000, M100.4001 #### [facility] [address] [place], [address] Monocytes/100 WBC (Bld) 6.3 % Normal 0-10 [facility] Comment on above: Performed By: #### M 600.2200, M600.2000, M100.3000, M300.2000, M300.3000, M100.2000, M100.4001 #### [facility] [address] [place], [address] Neutrophils/100 WBC (Bld) 74.2 % High 47-70 [facility] Comment on above: Performed By: #### M 600.2200, M600.2000, M100.3000, M300.2000, M300.3000, M100.2000, M100.4001 #### [facility] [address] [place], [address] Nucleated RBC (Bld) [#/Vol] 0 10*3/uL Normal 0-5 [facility] Comment on above: Performed By: #### M 600.2200, M600.2000, M100.3000, M300.2000, M300.3000, M100.2000, M100.4001 #### [facility] [address] [place], [address] Platelet mean volume (Bld) [Entitic vol] 9.5 fL Normal 6.2-12.0 [facility] Comment on above: Performed By: #### M 600.2200, M600.2000, M100.3000, M300.2000, M300.3000, M100.2000, M100.4001 #### [facility] [address] [place], [address] Platelets (Bld) [#/Vol] 349 10*3/uL Normal 150-450 [facility] Comment on above: Performed By: #### M 600.2200, M600.2000, M100.3000, M300.2000, M300.3000, M100.2000, M100.4001 #### [facility] [address] [place], [address] RBC (Bld) [#/Vol] 4.18 10*6/uL Low 4.2-5.4 [facility] Comment on above: Performed By: #### M 600.2200, M600.2000, M100.3000, M300.2000, M300.3000, M100.2000, M100.4001 #### [facility] [address] [place], [address] RDW SD 48.7 fl High 35.1-43.9 [facility] Comment on above: Performed By: #### M 600.2200, M600.2000, M100.3000, M300.2000, M300.3000, M100.2000, M100.4001 #### [facility] [address] [place], [address] WBC (Bld) [#/Vol] 10.2 10*3/uL Normal 4.4-11.0 [facility] Comment on above: Performed By: #### M 600.2200, M600.2000, M100.3000, M300.2000, M300.3000, M100.2000, M100.4001 #### [facility] [address] [place], [address] Culture, Blood (WB)on 2024 CUB No growth in 5 days. Normal [facility] Comment on above: Performed By: #### M 200.1000 #### [facility] [address] [place], [address] Vancomycin trough [Mass/Vol] Ordered By: Fahad Cavanaugh on 09-18-2024 Vancomycin Level Trough 10.7 ug/mL 5.0-15.0 [facility] Comment on above: Recommended goal tro [...] therapy recommended for serious lifethreatening infections include:- Hkyyzvtfij-Vuqjizyebqch-Lcxufzkcv (Ventilator/Healtcare Associated)-Sepsis PLEASE CONTACT PHARMACY SERVICES (#[id number]) FOR INTERPRETATIONOF RESULTS. Vancomycin, Trough Levelon 0 09-18-2024 VANCO, TROUGH 10.7 ug/mL Normal 5.0-15.0 [facility] Comment on above: Order Comment: Comme nts: DRAW 30 MIN PRIOR TO [id number] Result Comment: Zackery mmended goal trough ranges [...] (Ventilator/Healtcare Associated) -Sepsis PLEASE CONTACT PHARMACY SERVICES (#[id number]) FOR INTERPRETATION OF RESULTS. Performed By: #### M 600.2200, M600.2000, M100.3000, M300.2000, M300.3000, M100.2000, M100.4001 #### [facility] [address] [place], [address] C. difficile DNA RANJIT+probe Q l (Unsp spec)Ordered By: Claire Mayorga on 09-17-2024 Clostridioides difficile (PCR) [facility] CDIFF (PCR)on 09-17-2024 CDIFF Is the patient receiving laxatives? N Above criteria not met but test indicated N New/unexplained onset of 3 or more stools in past 24 hrs? N Pending 027 027 NAP1-B1 Presumptive Negative *for epidemiolologic???us e C. Diff PCR Negative- No toxigenic C. Diff Detected Normal [facility] Comment on above: Performed By: #### M 600.2200, M600.2000, M100.3000, M300.2000, M300.3000, M100.2000, M100.4001 #### [facility] [address] [place], [address] Culture, Anaerobic Any Sourc akosua 09-17-2024 CUAN UNK UNK Left Humeral Membrane - collected in [place] No anaerobic bacteria isolated. [facility] Comment on above: Performed By: #### M 600.2200, M600.2000, M100.3000, M300.2000, M300.3000, M100.2000, M100.4001 #### [facility] [address] [place], [place], [address] CUAN UNK UNK Left Posterior Synovium - collected in [place] No anaerobic bacteria isolated. Normal [facility] Comment on above: Performed By: #### M 600.2200, M600.2000, M100.3000, M300.2000, M300.3000, M100.2000, M100.4001 #### [facility] [address] [place], [place], [address] CUAN UNK UNK Left Glenosphere Membrane - collected in [place] No anaerobic bacteria isolated. Normal [facility] Comment on above: Performed By: #### M 600.2200, M600.2000, M100.3000, M300.2000, M300.3000, M100.2000, M100.4001 #### [facility] [address] [place], [place], [address] CUAN Results called on 09/12/24-1023 by FOREST to [phone]. UNK UNK No anaerobic bacteria isolated. [facility] Comment on above: Performed By: #### M 600.2200, M600.2000, M100.3000, M300.2000, M300.3000, M100.2000, M100.4001 #### [facility] [address] [place], [place], [address] 12 Lead EKGon 09-16-[address] [facility] Services [address] [place] [address] 12 Lead EKG 09/12/24 0804 MR#: [id number] Acct: [id number] Name: OSCAR WOO Rep #: [id number] : 1950 74 From: Tejal Holly MD Attending Dr: Dr. Fahad Cavanaugh MD Status: ADM IN Ordering Dr: Omar Walters MD Date: 09/16/24 [place] [facility] [place]: F C Admitted: 09/14/24 Test Reason [...] ECG Confirmed by ELAYNE COTTER, MARIELENA ([id number]), web content editor TRINITY ORTIZ ([id number]) on 09/16/2024 11:30:54 AM Referred By: Fahad Cavanaugh Confirmed By: MARIELENA HOLLY MD 09/16/24 1130 Date Tejal Holly MD CC: Dr. Omar Walters MD; Dr. Hernando Grimes MD; Dr. Fahad Cavanaugh MD Signed Normal [facility] Absolute neutrophil countOrd ered By: Emili Lee on 09-16-2024 Neutrophils (Bld) [#/Vol] 7.1 10*3/uL 2.0-7.7 [facility] Anion gap in Serum or Plasma Ordered By: Emili Lee on 09-16-2024 Anion gap [Moles/Vol] 7 mmol/L 5-15 [facility] Automated blood erythrocyte countOrdered By: Emili Lee on 09-16-2024 RBC (Bld) [#/Vol] 3.69 10*6/uL Low 4.2-5.4 [facility] Comment on above: Performed By: #### M 600.2200, M600.2000, M100.3000, M300.2000, M300.3000, M100.2000, M100.4001 #### [facility] [address] [place], [address] Automated blood hematocrit ( percentage)Ordered By: Emili Lee on 09-16-2024 Hematocrit (Bld) [Volume fraction] 35.3 % Low 37-47 [facility] Comment on above: Performed By: #### M 600.2200, M600.2000, M100.3000, M300.2000, M300.3000, M100.2000, M100.4001 #### [facility] [address] [place], [address] Automated lymphocyte count a s percentage of total leukocytesOrdered By: Emili Lee on 09-16-2024 Lymphocytes/100 WBC (Bld) 11.6 % Low 19-41 [facility] Comment on above: Performed By: #### M 600.2200, M600.2000, M100.3000, M300.2000, M300.3000, M100.2000, M100.4001 #### [facility] [address] [place], [address] BUN/creatinine ratioOrdered By: Emili Lee on 09-16-2024 Urea nitrogen/Creatinine [Mass ratio] 25.4 mg/mg High 10-20 [facility] Basic Metabolic Profile (BMP )on 09-16-2024 BUN/CRE 25.4 RATIO High [facility]20 [facility] Comment on above: Performed By: #### M 600.2200, M600.2000, M100.3000, M300.2000, M300.3000, M100.2000, M100.4001 #### [facility] [address] [place], [address] ECRCL 65.28 ml/min Normal 50-250 [facility] Comment on above: Performed By: #### M 600.2200, M600.2000, M100.3000, M300.2000, M300.3000, M100.2000, M100.4001 #### [facility] [address] [place], [address] GAP 7 Normal 5-15 [facility] Comment on above: Performed By: #### M 600.2200, M600.2000, M100.3000, M300.2000, M300.3000, M100.2000, M100.4001 #### [facility] [address] [place], [address] GFR/1.73 sq M.predicted among non-blacks MDRD (S/P/Bld) [Vol rate/Area] 64 mL/min/{1.73_m2} Normal >60 [facility] Comment on above: Result Comment: mL/m in/1.73m2 CKD-EPI Creatinine Equation (2020) Performed By: #### M 600.2200, M600.2000, M100.3000, M300.2000, M300.3000, M100.2000, M100.4001 #### [facility] [address] [place], [address] Basophil percentageOrdered B y: Emili Lee on 09-16-2024 Basophils/100 WBC (Bld) 0.4 % Normal 0-1 [facility] Comment on above: Performed By: #### M 600.2200, M600.2000, M100.3000, M300.2000, M300.3000, M100.2000, M100.4001 #### [facility] [address] [place], [place], [id number] Body Fluid Culton 09-16-2024 BFC Results called on 09/12/24-1023 by FOREST to [phone]. UNK UNK Copy of report sent to Infection Control Printer [id number] 09/14/24 0708 BRENDON. Body Fluid Cult MRSA RESULTS CALLED TO Mitra DANIEL 09/15/24 2313 Shanna Shook. REPORT READ BACK BY . [...] S Vancomycin Islt ESPERANZA <=0.5 S Normal [facility] Comment on above: Performed By: #### M 600.2200, M600.2000, M100.3000, M300.2000, M300.3000, M100.2000, M100.4001 #### [facility] [address] [place], [address] CBC W/Diff, Automatedon 08-31 Absolute Lymph 1.07 X10 3/uL Normal 0.83-4.51 [facility] Comment on above: Performed By: #### M 600.2200, M600.2000, M100.3000, M300.2000, M300.3000, M100.2000, M100.4001 #### [facility] [address] [place], [address] Absolute Neut 7.1 X10 3/uL Normal 2.0-7.7 [facility] Comment on above: Performed By: #### M 600.2200, M600.2000, M100.3000, M300.2000, M300.3000, M100.2000, M100.4001 #### [facility] [address] [place], [address] IG% 0.900 Normal 0.0-0.9 [facility] Comment on above: Result Comment: IG% - Immature Granulocytes (promyelocytes, myelocytes and metamyelocytes) > 1% indicates that a LEFT SHIFT is Present. Performed By: #### M 600.2200, M600.2000, M100.3000, M300.2000, M300.3000, M100.2000, M100.4001 #### [facility] [address] [place], [address] Nucleated RBC (Bld) [#/Vol] 0 10*3/uL Normal 0-5 [facility] Comment on above: Performed By: #### M 600.2200, M600.2000, M100.3000, M300.2000, M300.3000, M100.2000, M100.4001 #### [facility] [address] [place], [address] RDW SD 50.0 fl High 35.1-43.9 [facility] Comment on above: Performed By: #### M 600.2200, M600.2000, M100.3000, M300.2000, M300.3000, M100.2000, M100.4001 #### [facility] [address] [place], [address] Carbon dioxide, total [Moles /volume] in Central venous bloodOrdered By: Emili Lee on 09-16-2024 CO2 [Moles/Vol] 32.4 mmol/L High 21.0-32.0 [facility] Comment on above: Performed By: #### M 600.2200, M600.2000, M100.3000, M300.2000, M300.3000, M100.2000, M100.4001 #### [facility] [address] [place], [address] Chloride assayOrdered By: Anna Lee on 09-16-2024 Chloride [Moles/Vol] 101 mmol/L Normal 98-108 [facility] Comment on above: Performed By: #### M 600.2200, M600.2000, M100.3000, M300.2000, M300.3000, M100.2000, M100.4001 #### [facility] [address] [place], [address] Consultation - Infectious Dx on 09-16-2024 Consultation - Infectious Dx [facility] Medical Records Department [address] [place] [address] Consultation - Infectious Dx 09/16/24 1444 MR#: [id number] Acct: [id number] Name: OSCAR WOO Rep #: [id number] : 1950 74 From: Sixto Andrade MD PCP: Dr. Hernando Grimes MD Status:ADM IN Location: MS3 AL974-1 Assessment Plan Assessment/Plan (1) Infection and inflammatory [...] rx, d/w Dr. Cavanaugh on 09/13/24, d/w supervisor case loading this AM HPI Consult Data Date of [...] performed and neg except as noted above. [facility] Medical History MRSA (methicillin resistant staph aureus) [...] Skin Narrative: Picc in RUE, LUE in [facility] Neuro CN's II-XII intact bilaterally Lab / [...] 76.9 H, Lymph % (Auto) 11.6 L, Rusk % (Auto) 7.0, Eos % (Auto) 3.2, Baso % (Auto) 0.4, Absolute Neuts (auto) 7.1, Absolute Lymphs (auto) 1.07, Nucleated RBC % 0, Sodium 140, Potassium 4.8, Chloride 101, Carbon Dioxide 32.4 H, Anion Gap 7, (more content not included)... Normal [facility] Electrocardiogram reportOrde red By: Tejal Holly on 09-16-[address] [facility] Cardiovascular Services [address] [place] [address] 12 Lead EKG 09/12/24 0804 MR#: [id number] Acct: [id number] Name: OSCAR WOO Rep #:[id number] : 1950 74 From: Tejal aquino MD [...] Abnormal ECG Confirmed by ELAYNE COTTER, MARIELENA ([id number]), web content editor TRINITY ORTIZ ([id number]) on09/16/2024 11:30:54 AM Referred By: Fahad Cavanaugh Confirmed By: MARIELENA HOLLY MD 09/16/24 1130 Date _ Tejal Holly MD CC: Dr. Omar Walters MD; Dr. Hernando Grimes MD; Dr. Fahad Cavanaugh MD ~ Signed [facility] Work Phone: Eosinophil percentageOrdered By: Emili Lee on 09-16-2024 Eosinophils/100 WBC (Bld) 3.2 % Normal 0-5 [facility] Comment on above: Performed By: #### M 600.2200, M600.2000, M100.3000, M300.2000, M300.3000, M100.2000, M100.4001 #### [facility] [address] [facility] [place], [place], [address] Erythrocyte distribution wid th ratioOrdered By: Emili Lee on 09-16-2024 Erythrocyte distribution width (RBC) [Ratio] 14.3 % Normal 11.6-14.6 [facility] Comment on above: Performed By: #### M 600.2200, M600.2000, M100.3000, M300.2000, M300.3000, M100.2000, M100.4001 #### [facility] [address] [facility] [place], [place], [address] Erythrocyte distribution wid th standard deviationOrdered By: Emili Lee on 09-16-2024 Erythrocyte distribution width (RBC) [Entitic vol] 50.0 fL High 35.1-43.9 [facility] Estimation of creatinine darrell aranceOrdered By: Emili Lee on 09-16-2024 Estimated Creatinine Clearance Calc 65.28 ml/min 50-250 [facility] GFR/1.73 sq M.predicted hans g non-blacks MDRD (S/P/Bld) [Vol rate/Area]Ordered By: Emili Lee on 09-16-2024 Estimated GFR (MDRD) Non-Af Amer 64 >60 [facility] Comment on above: mL/min/1.73m2 CKD-EP I Creatinine Equation (2020) Hemoglobin measurementOrdere d By: Emili Lee on 09-16-2024 Hemoglobin (Bld) [Mass/Vol] 11.0 g/dL Low 12.0-15.0 [facility] Comment on above: Performed By: #### M 600.2200, M600.2000, M100.3000, M300.2000, M300.3000, M100.1999, M1.4001 #### [facility] [address] [facility] [place], [place], [id number] Immature granulocytes/100 WB C Auto (Bld)Ordered By: Emili Lee on 09-16-2024 Immature granulocytes/100 WBC (Bld) 0.900 % 0.0-0.9 [facility] Comment on above: IG% - Immature Granu locytes (promyelocytes, myelocytes and metamyelocytes) > 1% indicates that a LEFT SHIFT is Present. Lymphocytes Auto (Unsp spec) [#/Vol]Ordered By: Emili Lee on 09-16-2024 Lymphocytes (Bld) [#/Vol] 1.07 10*3/uL 0.83-4.51 [facility] MCV (mean corpuscular volume ) determinationOrdered By: Emili Lee on 09-16-2024 MCV (RBC) [Entitic vol] 95.7 fL Normal 81-99 [facility] Comment on above: Performed By: #### M 600.2200, M600.2000, M100.3000, M300.2000, M300.3000, M100.2000, M100.4001 #### [facility] [address] [facility] [place], [place], [address] Mean corpuscular hemoglobin (MCH) determinationOrdered By: Emili Lee on 09-16-2024 MCH (RBC) [Entitic mass] 29.8 pg Normal 27.0-32.0 [facility] Comment on above: Performed By: #### M 600.2200, M600.2000, M100.3000, M300.2000, M300.3000, M100.2000, M100.4001 #### [facility] [address] [place], [place], [address] Mean corpuscular hemoglobin concentration (MCHC) determinationOrdered By: Emili Lee on 09-16-2024 MCHC (RBC) [Mass/Vol] 31.2 g/dL Low 32-36 [facility] Comment on above: Performed By: #### M 600.2200, M600.2000, M100.3000, M300.2000, M300.3000, M100.2000, M100.4001 #### [facility] [address] [place], [address] Mean platelet volume determi nationOrdered By: Emiil Lee on 09-16-2024 Platelet mean volume (Bld) [Entitic vol] 9.4 fL Normal 6.2-12.0 [facility] Comment on above: Performed By: #### M 600.2200, M600.2000, M100.3000, M300.2000, M300.3000, M100.2000, M100.4001 #### [facility] [address] [place], [address] Monocyte percentageOrdered B y: Emili Lee on 09-16-2024 Monocytes/100 WBC (Bld) 7.0 % Normal 0-10 [facility] Comment on above: Performed By: #### M 600.2200, M600.2000, M100.3000, M300.2000, M300.3000, M100.2000, M100.4001 #### [facility] [address] [place], [place], [id number] Neutrophil percentageOrdered By: Emili Lee on 09-16-2024 Neutrophils/100 WBC (Bld) 76.9 % High 47-70 [facility] Comment on above: Performed By: #### M 600.2200, M600.2000, M100.3000, M300.2000, M300.3000, M100.2000, M100.4001 #### [facility] [address] [place], [place], [id number] [phone] Nucleated red blood cell per centageOrdered By: Emili Lee on 09-16-2024 Nucleated RBC/100 WBC (Bld) [Ratio] 0 % 0-5 [facility] Platelet countOrdered By: Anna Lee on 09-16-2024 Platelets (Bld) [#/Vol] 261 10*3/uL Normal 150-450 [facility] Comment on above: Performed By: #### M 600.2200, M600.2000, M100.3000, M300.2000, M300.3000, M100.2000, M100.4001 #### [facility] [address] [place], [place], [id number] Potassium measurement (mass/ volume)Ordered By: Emili Lee on 09-16-2024 Potassium [Moles/Vol] 4.8 mmol/L Normal 3.3-5.1 [facility] Comment on above: Performed By: #### M 600.2200, M600.2000, M100.3000, M300.2000, M300.3000, M100.2000, M100.4001 #### [facility] [address] [place], [place], [id number] Serum creatinine measurement (mass/volume)Ordered By: Emili Lee on 09-16-2024 Creatinine [Mass/Vol] 0.93 mg/dL Normal 0.70-1.20 [facility] Comment on above: Performed By: #### M 600.2200, M600.2000, M100.3000, M300.2000, M300.3000, M100.2000, M100.4001 #### [facility] [address] [place], [address] Serum glucose measurement (m ass/volume)Ordered By: Emili Lee on 09-16-2024 Glucose [Mass/Vol] 108 mg/dL High 70-99 [facility] Comment on above: Performed By: #### M 600.2200, M600.2000, M100.3000, M300.2000, M300.3000, M100.2000, M100.4001 #### [facility] [address] [place], [place], [phone] Serum or plasma calcium lisa urement (mass/volume)Ordered By: Emili Lee on 09-16-2024 Calcium [Mass/Vol] 8.9 mg/dL Normal 7.6-11.0 [facility] Comment on above: Performed By: #### M 600.2200, M600.2000, M100.3000, M300.2000, M300.3000, M100.2000, M100.4001 #### [facility] [address] [place], [place], [phone] Serum or plasma urea nitroge n measurement (mass/volume)Ordered By: Emili Lee on 09-16-2024 Urea nitrogen [Mass/Vol] 24 mg/dL High 4-19 [facility] Comment on above: Performed By: #### M 600.2200, M600.2000, M100.3000, M300.2000, M300.3000, M100.2000, M100.4001 #### [facility] [address] [place], [place], [phone] Sodium levelOrdered By: Stephen Lee on 09-16-2024 Sodium [Moles/Vol] 140 mmol/L Normal 133-145 [facility] Comment on above: Performed By: #### M 600.2200, M600.2000, M100.3000, M300.2000, M300.3000, M100.2000, M100.4001 #### [facility] [address] [place], [place], [phone] Vancomycin [Mass/Vol]Ordered By: Fahad Cavanaugh on 09-16-2024 Random Vancomycin Level 14.4 ug/mL 0.0-15.0 [facility] Comment on above: VANCOMYCIN STANDARD DRUG THERAPY: CRITICAL VALUE IS > 15.0 mg/L VANCOMYCIN HIGH INTENSITY THERAPY: CRITICAL VALUE IS > 20.0 mg/L PLEASE CONTACT PHARMACY SERVICES (#[id number]) FOR INTERPRETATIONOF RESULTS. THIS RESULT DOES NOT REPRESENT A PEAK OR TROUGHLEVEL FOR THIS DRUG. Vancomycin, Random Levelon 0 09-16-2024 VANCO, RANDOM 14.4 ug/mL Normal 0.0-15.0 [facility] Comment on above: Result Comment: VANC OMYCIN STANDARD DRUG THERAPY: CRITICAL VALUE IS > 15.0 mg/L VANCOMYCIN HIGH INTENSITY THERAPY: CRITICAL VALUE IS > 20.0 mg/L PLEASE CONTACT PHARMACY SERVICES (#[id number]) FOR INTERPRETATION OF RESULTS. THIS RESULT DOES NOT REPRESENT A PEAK OR TROUGH LEVEL FOR THIS DRUG. Performed By: #### M 600.2200, M600.2000, M100.3000, M300.2000, M300.3000, M100.2000, M100.4001 #### [facility] [address] [place], [place], [address] White blood cell (WBC) count Ordered By: Emili Lee on 09-16-2024 WBC (Bld) [#/Vol] 9.2 10*3/uL Normal 4.4-11.0 [facility] Comment on above: Performed By: #### M 600.2200, M600.2000, M100.3000, M300.2000, M300.3000, M100.2000, M100.4001 #### [facility] [address] [facility] [place], [place], [address] Wound Cultureon 09-16-2024 WC UNK UNK Left [...] S Vancomycin Islt ESPERANZA 1 S Normal [facility] Comment on above: Performed By: #### M 100.3000, M600.2200, M100.4001, M600.2000, M300.2000, M300.3000, M100.2000 #### [facility] [address] [place], [place], [id number] WC UNK UNK Left Posterior Synovium - [...] S Vancomycin Islt ESPERANZA 1 S Normal [facility] Comment on above: Performed By: #### M 600.2200, M600.2000, M100.3000, M300.2000, M300.3000, M100.2000, M100.4001 #### [facility] [address] [place], [place], [id number] WC UNK UNK Left Glenosphere Membrane - [...] S Vancomycin Islt ESPERANZA <=0.5 S Normal [facility] Comment on above: Performed By: #### M 600.2200, M600.2000, M100.3000, M300.2000, M300.3000, M100.2000, M100.4001 #### [facility] [address] [place], [address] Basic Metabolic Profile (BMP )on 09-15-2024 BUN/CRE 29.0 RATIO High 10-20 [facility] Comment on above: Performed By: #### M 600.2200, M600.2000, M100.3000, M300.2000, M300.3000, M100.2000, M100.4001 #### [facility] [address] [place], [address] Calcium [Mass/Vol] 8.4 mg/dL Normal 7.6-11.0 [facility] Comment on above: Performed By: #### M 600.2200, M600.2000, M100.3000, M300.2000, M300.3000, M100.2000, M100.4001 #### [facility] [address] [place], [address] Chloride [Moles/Vol] 99 mmol/L Normal 98-108 [facility] Comment on above: Performed By: #### M 600.2200, M600.2000, M100.3000, M300.2000, M300.3000, M100.2000, M100.4001 #### [facility] [address] [place], [address] CO2 [Moles/Vol] 24.7 mmol/L Normal 21.0-32.0 [facility] Comment on above: Performed By: #### M 600.2200, M600.2000, M100.3000, M300.2000, M300.3000, M100.2000, M100.4001 #### [facility] [address] [place], [address] Creatinine [Mass/Vol] 1.12 mg/dL Normal 0.70-1.20 [facility] Comment on above: Performed By: #### M 600.2200, M600.2000, M100.3000, M300.2000, M300.3000, M100.2000, M100.4001 #### [facility] [address] [place], [address] ECRCL 54.21 ml/min Normal 50-250 [facility] Comment on above: Performed By: #### M 600.2200, M600.2000, M100.3000, M300.2000, M300.3000, M100.2000, M100.4001 #### [facility] [address] [place], [address] GAP 11 Normal 5-15 [facility] Comment on above: Performed By: #### M 600.2200, M600.2000, M100.3000, M300.2000, M300.3000, M100.2000, M100.4001 #### [facility] [address] [place], [address] GFR/1.73 sq M.predicted among non-blacks MDRD (S/P/Bld) [Vol rate/Area] 51 mL/min/{1.73_m2} Low >60 [facility] Comment on above: Result Comment: mL/m in/1.73m2 CKD-EPI Creatinine Equation (2020) Performed By: #### M 600.2200, M600.2000, M100.3000, M300.2000, M300.3000, M100.2000, M100.4001 #### [facility] [address] [place], [address] Glucose [Mass/Vol] 100 mg/dL High 70-99 [facility] Comment on above: Performed By: #### M 600.2200, M600.2000, M100.3000, M300.2000, M300.3000, M100.2000, M100.4001 #### [facility] [address] [place], [address] Potassium [Moles/Vol] 4.1 mmol/L Normal 3.3-5.1 [facility] Comment on above: Result Comment: Hemo lysis present, Results??could be affected. ?? Performed By: #### M 600.2200, M600.2000, M100.3000, M300.2000, M300.3000, M100.2000, M100.4001 #### [facility] [address] [place], [address] Sodium [Moles/Vol] 135 mmol/L Normal 133-145 [facility] Comment on above: Performed By: #### M 600.2200, M600.2000, M100.3000, M300.2000, M300.3000, M100.2000, M100.4001 #### [facility] [address] [place], [address] Urea nitrogen [Mass/Vol] 33 mg/dL High 4-19 [facility] Comment on above: Performed By: #### M 600.2200, M600.2000, M100.3000, M300.2000, M300.3000, M100.2000, M100.4001 #### [facility] [address] [place], [address] CBC-Complete Blood Cnt No Di ffon 09-15-2024 Erythrocyte distribution width (RBC) [Ratio] 14.1 % Normal 11.6-14.6 [facility] Comment on above: Performed By: #### M 600.2200, M600.2000, M100.3000, M300.2000, M300.3000, M100.2000, M100.4001 #### [facility] [address] [place], [address] Hematocrit (Bld) [Volume fraction] 36.4 % Low 37-47 [facility] Comment on above: Performed By: #### M 600.2200, M600.2000, M100.3000, M300.2000, M300.3000, M100.2000, M100.4001 #### [facility] [address] [place], [address] Hemoglobin (Bld) [Mass/Vol] 11.5 g/dL Low 12.0-15.0 [facility] Comment on above: Performed By: #### M 600.2200, M600.2000, M100.3000, M300.2000, M300.3000, M100.2000, M100.4001 #### [facility] [address] [place], [address] MCH (RBC) [Entitic mass] 29.4 pg Normal 27.0-32.0 [facility] Comment on above: Performed By: #### M 600.2200, M600.2000, M100.3000, M300.2000, M300.3000, M100.2000, M100.4001 #### [facility] [address] [place], [address] MCHC (RBC) [Mass/Vol] 31.6 g/dL Low 32-36 [facility] Comment on above: Performed By: #### M 600.2200, M600.2000, M100.3000, M300.2000, M300.3000, M100.2000, M100.4001 #### [facility] [address] [place], [address] MCV (RBC) [Entitic vol] 93.1 fL Normal 81-99 [facility] Comment on above: Performed By: #### M 600.2200, M600.2000, M100.3000, M300.2000, M300.3000, M100.2000, M100.4001 #### [facility] [address] [place], [address] Platelet mean volume (Bld) [Entitic vol] 10.0 fL Normal 6.2-12.0 [facility] Comment on above: Performed By: #### M 600.2200, M600.2000, M100.3000, M300.2000, M300.3000, M100.2000, M100.4001 #### [facility] [address] [place], [address] Platelets (Bld) [#/Vol] 238 10*3/uL Normal 150-450 [facility] Comment on above: Performed By: #### M 600.2200, M600.2000, M100.3000, M300.2000, M300.3000, M100.2000, M100.4001 #### [facility] [address] [place], [address] RBC (Bld) [#/Vol] 3.91 10*6/uL Low 4.2-5.4 [facility] Comment on above: Performed By: #### M 600.2200, M600.2000, M100.3000, M300.2000, M300.3000, M100.2000, M100.4001 #### [facility] [address] [place], [address] RDW SD 48.1 fl High 35.1-43.9 [facility] Comment on above: Performed By: #### M 600.2200, M600.2000, M100.3000, M300.2000, M300.3000, M100.2000, M100.4001 #### [facility] [address] [place], [address] WBC (Bld) [#/Vol] 9.6 10*3/uL Normal 4.4-11.0 [facility] Comment on above: Performed By: #### M 600.2200, M600.2000, M100.3000, M300.2000, M300.3000, M100.2000, M100.4001 #### [facility] [address] [place], [address] Chest PA and Lateralon 09-15 Chest PA and Lateral [facility] Imaging Services [address] [place], [place] [address] Chest PA and Lateral MR#: [id number] Acct: [id number] Name: OSCAR WOO Rep #: [id number] : 1950 F 74 From: Sixto Kendrick PCP: Dr. Hernando Grimes MD Status: ADM IN Study: Chest PA and Lateral Date of Exam: 09/15/24 Exam# [id number] Ordering Dr: Emili Lee MD PROCEDURE: Chest [...] Hernando Grimes MD; Dr. Emili Lee MD Credit Representative: Signed Normal [facility] M100.019on 09-15-2024 M100.019 Negative Normal [facility] Comment on above: Performed By: #### M 100.3000, M600.2200, M100.4001, M600.2000, M300.2000, M300.3000, M100.2000 #### [facility] [address] [place], [place], [address] RESPIRATORY PANEL MOLECULARo n 09-15-2024 RP PANEL ADENOVIRUS Not Detected INFLUENZA A Not Detected INFLUENZA A (SUBTYPE H1) Not Detected INFLUENZA A (SUBTYPE H3) Not Detected INFLUENZA B Not Detected HUMAN METAPHNEUMO Not Detected PARAINFLUENZA 1 Not Detected PARAINFLUENZA 2 Not Detected PARAINFLUENZA 3 Not Detected PARAINFLUENZA 4 Not Detected RHINOVIRUS Not Detected RSV A Not Detected RSV B Not Detected Normal [facility] Comment on above: Performed By: #### M 100.3000, M600.2200, M100.4001, M600.2000, M300.2000, M300.3000, M100.2000 #### [facility] [address] [place], [address] Respiratory pathogens DNA an d RNA panel RANJIT+probe (Resp)Ordered By: Emili Lee on 09-15-2024 Respiratory Panel (PCR) [facility] [id number] By: Emili Lee on 09-15-2024 SARS-CoV-2 (COVID-19) RNA RANJIT+probe Ql (Unsp spec) [facility] Vancomycin, Trough Levelon 0 09-15-2024 VANCO, TROUGH 22.8 ug/mL High 5.0-15.0 [facility] Comment on above: Order Comment: Comme nts: DRAW 30 MIN PRIOR TO [id number] Result Comment: Zackery mmended goal trough ranges [...] (Ventilator/Healtcare Associated) -Sepsis PLEASE CONTACT PHARMACY SERVICES (#[id number]) FOR INTERPRETATION OF RESULTS. Performed By: #### M 600.2200, M600.2000, M100.3000, M300.2000, M300.3000, M100.2000, M100.4001 #### [facility] [address] [place], [address] Basic Metabolic Profile (BMP )on 09-14-2024 BUN/CRE 18.8 RATIO Normal - [facility] Comment on above: Performed By: #### M 600.2200, M600.2000, M100.3000, M300.2000, M300.3000, M100.2000, M100.4001 #### [facility] [address] [place], [address] Calcium [Mass/Vol] 8.3 mg/dL Normal 7.6-11.0 [facility] Comment on above: Performed By: #### M 600.2200, M600.2000, M100.3000, M300.2000, M300.3000, M100.2000, M100.4001 #### [facility] [address] [place], [address] Chloride [Moles/Vol] 93 mmol/L Low 98-108 [facility] Comment on above: Performed By: #### M 600.2200, M600.2000, M100.3000, M300.2000, M300.3000, M100.2000, M100.4001 #### [facility] [address] [place], [address] CO2 [Moles/Vol] 26.4 mmol/L Normal 21.0-32.0 [facility] Comment on above: Performed By: #### M 600.2200, M600.2000, M100.3000, M300.2000, M300.3000, M100.2000, M100.4001 #### [facility] [address] [place], [address] Creatinine [Mass/Vol] 1.28 mg/dL High 0.70-1.20 [facility] Comment on above: Performed By: #### M 600.2200, M600.2000, M100.3000, M300.2000, M300.3000, M100.2000, M100.4001 #### [facility] [address] [place], [address] ECRCL 47.43 ml/min Low 50-250 [facility] Comment on above: Performed By: #### M 600.2200, M600.2000, M100.3000, M300.2000, M300.3000, M100.2000, M100.4001 #### [facility] [address] [place], [address] GAP 12 Normal 5-15 [facility] Comment on above: Performed By: #### M 600.2200, M600.2000, M100.3000, M300.2000, M300.3000, M100.2000, M100.4001 #### [facility] [address] [place], [address] GFR/1.73 sq M.predicted among non-blacks MDRD (S/P/Bld) [Vol rate/Area] 44 mL/min/{1.73_m2} Low >60 [facility] Comment on above: Result Comment: mL/m in/1.73m2 CKD-EPI Creatinine Equation (2020) Performed By: #### M 600.2200, M600.2000, M100.3000, M300.2000, M300.3000, M100.2000, M100.4001 #### [facility] [address] [place], [address] Glucose [Mass/Vol] 111 mg/dL High 70-99 [facility] Comment on above: Performed By: #### M 600.2200, M600.2000, M100.3000, M300.2000, M300.3000, M100.2000, M100.4001 #### [facility] [address] [place], [address] Potassium [Moles/Vol] 4.0 mmol/L Normal 3.3-5.1 [facility] Comment on above: Performed By: #### M 600.2200, M600.2000, M100.3000, M300.2000, M300.3000, M100.2000, M100.4001 #### [facility] [address] [place], [address] Sodium [Moles/Vol] 131 mmol/L Low 133-145 [facility] Comment on above: Performed By: #### M 600.2200, M600.2000, M100.3000, M300.2000, M300.3000, M100.2000, M100.4001 #### [facility] [address] [place], [address] Urea nitrogen [Mass/Vol] 24 mg/dL High 4-19 [facility] Comment on above: Performed By: #### M 600.2200, M600.2000, M100.3000, M300.2000, M300.3000, M100.2000, M100.4001 #### [facility] [address] [place], [address] CBC-Complete Blood Cnt No Di ffon 09-14-2024 Erythrocyte distribution width (RBC) [Ratio] 14.0 % Normal 11.6-14.6 [facility] Comment on above: Performed By: #### M 600.2200, M600.2000, M100.3000, M300.2000, M300.3000, M100.2000, M100.4001 #### [facility] [address] [place], [address] Hematocrit (Bld) [Volume fraction] 32.5 % Low 37-47 [facility] Comment on above: Performed By: #### M 600.2200, M600.2000, M100.3000, M300.2000, M300.3000, M100.2000, M100.4001 #### [facility] [address] [place], [address] Hemoglobin (Bld) [Mass/Vol] 10.2 g/dL Low 12.0-15.0 [facility] Comment on above: Performed By: #### M 600.2200, M600.2000, M100.3000, M300.2000, M300.3000, M100.2000, M100.4001 #### [facility] [address] [place], [address] MCH (RBC) [Entitic mass] 29.6 pg Normal 27.0-32.0 [facility] Comment on above: Performed By: #### M 600.2200, M600.2000, M100.3000, M300.2000, M300.3000, M100.2000, M100.4001 #### [facility] [address] [place], [address] MCHC (RBC) [Mass/Vol] 31.4 g/dL Low 32-36 [facility] Comment on above: Performed By: #### M 600.2200, M600.2000, M100.3000, M300.2000, M300.3000, M100.2000, M100.4001 #### [facility] [address] [place], [address] MCV (RBC) [Entitic vol] 94.2 fL Normal 81-99 [facility] Comment on above: Performed By: #### M 600.2200, M600.2000, M100.3000, M300.2000, M300.3000, M100.2000, M100.4001 #### [facility] [address] [place], [address] Platelet mean volume (Bld) [Entitic vol] 10.1 fL Normal 6.2-12.0 [facility] Comment on above: Performed By: #### M 600.2200, M600.2000, M100.3000, M300.2000, M300.3000, M100.2000, M100.4001 #### [facility] [address] [place], [address] Platelets (Bld) [#/Vol] 239 10*3/uL Normal 150-450 [facility] Comment on above: Performed By: #### M 600.2200, M600.2000, M100.3000, M300.2000, M300.3000, M100.2000, M100.4001 #### [facility] [address] [place], [address] RBC (Bld) [#/Vol] 3.45 10*6/uL Low 4.2-5.4 [facility] Comment on above: Performed By: #### M 600.2200, M600.2000, M100.3000, M300.2000, M300.3000, M100.2000, M100.4001 #### [facility] [address] [place], [address] RDW SD 48.3 fl High 35.1-43.9 [facility] Comment on above: Performed By: #### M 600.2200, M600.2000, M100.3000, M300.2000, M300.3000, M100.2000, M100.4001 #### [facility] [address] [place], [address] WBC (Bld) [#/Vol] 11.3 10*3/uL High 4.4-11.0 [facility] Comment on above: Performed By: #### M 600.2200, M600.2000, M100.3000, M300.2000, M300.3000, M100.2000, M100.4001 #### [facility] [address] [place], [address] Gram Stainon 09-14-2024 GS UNK UNK Left Glenosphere Membrane - collected in [place] Gram Stain Very Rare Gram positive cocci 1+ White Blood Cells Normal [facility] Comment on above: Performed By: #### M 600.2200, M600.2000, M100.3000, M300.2000, M300.3000, M100.2000, M100.4001 #### [facility] [address] [place], [address] GS UNK UNK Left Posterior Synovium - collected in [place] Gram Stain Very Rare Gram positive cocci Normal [facility] Comment on above: Performed By: #### M 600.2200, M600.2000, M100.3000, M300.2000, M300.3000, M100.2000, M100.4001 #### [facility] [address] [place], [address] GS UNK UNK Left Humeral Membrane - collected in [place] Gram Stain 4+ Gram positive cocci in clusters Normal [facility] Comment on above: Performed By: #### M 100.3000, M600.2200, M100.4001, M600.2000, M300.2000, M300.3000, M100.2000 #### [facility] [address] [place], [address] Bacteria identified Anaer cx Nom (Unsp spec)Ordered By: Fahad Cavanaugh on 09-13-2024 Anaerobic Culture No anaerobic bacteria isolated. [facility] Bedside Glucoseon 09-13-2024 FINGERSTICK GLU 88 mg/dL Normal 74-106 [facility] Comment on above: Result Comment: ROSA ISELA GUSENT OF PATIENT CARE PER NURSING PROTOCOL Performed By: #### M 600.2200, M600.2000, M100.3000, M300.2000, M300.3000, M100.2000, M100.4001 #### [facility] [address] [place], [address] Blood cultureOrdered By: Jonathan Cavanaugh on 09-13-2024 Bacteria identified Cx Nom (Bld) No growth in 5 days. [facility]dered By: Fahad Cavanaugh on 09-13-2024 Bedside Glucose (Misc Panel) 88 mg/dL 74-106 [facility] Comment on above: MANAGEMENT OF PATIEN T CARE PER NURSING PROTOCOL Gram stainOrdered By: Fahad Cavanaugh on 09-13-2024 Microscopic observation Gram stain Nom (Unsp spec) [facility] MR/POSTOP.ANEon 09-13-2024 MR/POSTOP.ANE [facility] Medical Records Department [address] [place] [address] Anesthesia Postop Eval I 09/13/24 1711 MR#: [id number] Acct: [id number] Name: OSCAR WOO Rep #: [id number] : 1950 74 From: Doug Urias CRNA PCP: Dr. Hernando Grimes MD Status:ADM NATE Y Race: C [facility]: Postop Eval I Current Vital Signs [...] completed: Yes 09/13/24 171 Date Doug Bridgett CCNP Cosigner Signature: Date CC: Signed Normal [facility] MR/[id number] 09-13-2024 [facility] Medical Records Department [address] [place] [address] Anesthesia Postop Eval II 09/13/241909 MR#: [id number] Acct: [id number] Name: OSCAR WOO Rep #: [id number] : 1950 74 From: Omar Walters MD PCP: Dr. Hernando Grimes MD Status:ADM NATE Y Race: C [place] [facility] [id number] Anesthesia Postop Eval I Sum Postop Eval Completion status Anesthesia document: Postop Eval 1 completed: Yes Anesthesia Postop Eval I Summary Anesthesia Postop Eval I Summary: Anesthesia Postop Eval I: Assessment Summary Airway patent Yes 09/13/24 17:12 [email or web address] Spontaneous unlabored Yes 09/13/24 17:12 [email or web address] respirations Mental status Calm 09/13/24 17:12 [email or web address] nausea No 09/13/24 17:12 [email or web address] Vomiting No 09/13/24 17:12 [email or web address] Anesthesia Postop Eval I: Fluid Summary Crystalloid volume administer 2,000 09/13/24 17:12 [email or web address] (ml) Colloids volume administered ( ml) Blood Product volume administered (ml) Total IV fluid infused 2,000 09/13/24 17:12 [email or web address] Anesthesia Postop Eval I: Summary Notes Anesthesia Complication No 09/13/24 17:12 CCNP.TNES Anesthesia Complication Comment: Post-operative progress note Anesthesia: Postop Eval II Evaluation Mental status: Awake Pain Level: 1 nausea: No Vomiting: No 09/13/24 1910 Date Omar Herndon Signature: Date CC: Signed Normal [facility] MRSA/SAID NASAL SCREENon MRSA+SAID SCRN Reason for Exam: PREOP MRSA MRSA Negative S. AUREUS S. aureus PositiveA Normal [facility] Comment on above: Performed By: #### M 600.2200, M600.2000, M100.3000, M300.2000, M300.3000, M100.2000, M100.4001 #### [facility] [address] [facility] [place], [address] Operative Reporton 5 Operative Report [facility] Medical Records Department [address] [place] [address] Operative Report 09/13/24 1620 MR#: [id number] Acct: [id number] Name: OSCAR WOO Rep #: [id number] : 1950 74 From: Fahad Cavanaugh MD PCP: Dr. 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 Normal [facility] Routine wound cultureOrdered By: Fahad Cavanaugh on 09-13-2024 Wound Culture Staphylococcus aureus Abnormal [facility] Shoulder min 2 Viewson 09-[address] Should[address] [facility] Imaging Services [address] [place] [address] Shoulder min 2 Views MR#: [id number] Acct: [id number] Name: WOOOSCAR Rep #: [id number] : 1950 F 74 From: Kalyan dowling MD PCP: Dr. Hernando Grimes MD Status: ADM NATE Study: Shoulder min 2 Views Date of Exam: 09/13/24 Exam# [id number] Ordering Dr: Fahad Cavanaugh MD PROCEDURE: SHOULDER [...] Hernando Grimes MD; Dr. Fahad Cavanaugh MD Credit Representative: Signed Normal [facility] CBC-Complete Blood Cnt No Di ffon 09-12-2024 Erythrocyte distribution width (RBC) [Ratio] 13.7 % Normal 11.6-14.6 [facility] Comment on above: Performed By: #### M 600.2200, M600.2000, M100.3000, M300.2000, M300.3000, M100.2000, M100.4001 #### [facility] [address] [place], [address] Hematocrit (Bld) [Volume fraction] 37.2 % Normal 37-47 [facility] Comment on above: Performed By: #### M 600.2200, M600.2000, M100.3000, M300.2000, M300.3000, M100.2000, M100.4001 #### [facility] [address] [place], [address] Hemoglobin (Bld) [Mass/Vol] 12.2 g/dL Normal 12.0-15.0 [facility] Comment on above: Performed By: #### M 600.2200, M600.2000, M100.3000, M300.2000, M300.3000, M100.2000, M100.4001 #### [facility] [address] [place], [address] MCH (RBC) [Entitic mass] 30.0 pg Normal 27.0-32.0 [facility] Comment on above: Performed By: #### M 600.2200, M600.2000, M100.3000, M300.2000, M300.3000, M100.2000, M100.4001 #### [facility] [address] [place], [address] MCHC (RBC) [Mass/Vol] 32.8 g/dL Normal 32-36 [facility] Comment on above: Performed By: #### M 600.2200, M600.2000, M100.3000, M300.2000, M300.3000, M100.2000, M100.4001 #### [facility] [address] [place], [address] MCV (RBC) [Entitic vol] 91.6 fL Normal 81-99 [facility] Comment on above: Performed By: #### M 600.2200, M600.2000, M100.3000, M300.2000, M300.3000, M100.2000, M100.4001 #### [facility] [address] [place], [address] Platelet mean volume (Bld) [Entitic vol] 10.1 fL Normal 6.2-12.0 [facility] Comment on above: Performed By: #### M 600.2200, M600.2000, M100.3000, M300.2000, M300.3000, M100.2000, M100.4001 #### [facility] [address] [place], [address] Platelets (Bld) [#/Vol] 230 10*3/uL Normal 150-450 [facility] Comment on above: Performed By: #### M 600.2200, M600.2000, M100.3000, M300.2000, M300.3000, M100.2000, M100.4001 #### [facility] [address] [place], [address] RBC (Bld) [#/Vol] 4.06 10*6/uL Low 4.2-5.4 [facility] Comment on above: Performed By: #### M 600.2200, M600.2000, M100.3000, M300.2000, M300.3000, M100.2000, M100.4001 #### [facility] [address] [place], [address] RDW SD 47.1 fl High 35.1-43.9 [facility] Comment on above: Performed By: #### M 600.2200, M600.2000, M100.3000, M300.2000, M300.3000, M100.2000, M100.4001 #### [facility] [address] [place], [address] WBC (Bld) [#/Vol] 10.0 10*3/uL Normal 4.4-11.0 [facility] Comment on above: Performed By: #### M 600.2200, M600.2000, M100.3000, M300.2000, M300.3000, M100.2000, M100.4001 #### [facility] [address] [place], [address] Gram Stainon 09-12-2024 GS Results called on 09/12/241023 by FOREST to [phone]. UNK UNK Test not performed Normal [facility] Comment on above: Performed By: #### M 600.2200, M600.2000, M100.3000, M300.2000, M300.3000, M100.2000, M100.4001 #### [facility] [address] [place], [address] /Chi 09-12-2024 MR/PAT[facility] Medical Records Department [address] [place] [address] PAT - Anesthesia 09/12/24 1201 MR#: [id number] Acct: [id number] Name: OSCAR WOO Rep #: [id number] : 1950 74 From: Sonu Nguyen MD PCP: Dr. 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 Hx Hospitalization No 09/11/24 15:02 Any Problems [...] take am of surgery PONV PONV - cocktail server: PONV - cocktail server Female Yes 09/11/24 15:02 HX of Motion [...] 05/05/22 15:52 Respiratory Assessment Respiratory Assessment - cocktail server: Respiratory Tract Infection Hx - cocktail server Hx Respiratory Tract Infection No 09/11/24 15:02 STOP Sleep Apnea STOP Sleep Apnea - cocktail server: STOP Sleep Apnea - cocktail server Hx Hypertension Yes: CONTROLLED WITH MED 09/11/24 [...] Tobacco Use History Tobacco Use History - cocktail server: Tobacco Use History - cocktail server Tobacco Use Smoking Status Former smoker 09/11/24 15:02 Hx Tobacco Use No 09/11/24 15:02 Years Smoking Packs Smoked per Day Smoking Cessation Date was No - quit smoking greater 09/11/24 15:02 within the last 15 years than 15 years ago Hx Smoking Cessation Date Hx Smoking Cessation No 09/11/24 15:02 Counseling Hematologic Medial History Hematologic Hx - 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 Normal [facility] MR/PAT.[facility] Medical Records Department [address] [place] [address] PAT - Anesthesia 09/12/24 1120 MR#: [id number] Acct: [id number] Name: OSCAR WOO Rep #: [id number] : 1950 74 From: Sonu Nguyen MD PCP: Dr. 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 Hx Hospitalization No 09/11/24 15:02 Any Problems [...] take am of surgery PONV PONV - cocktail server: PONV - cocktail server Female Yes 09/11/24 15:02 HX of Motion [...] 05/05/22 15:52 Respiratory Assessment Respiratory Assessment - cocktail server: Respiratory Tract Infection Hx - cocktail server Hx Respiratory Tract Infection No 09/11/24 15:02 STOP Sleep Apnea STOP Sleep Apnea - cocktail server: STOP Sleep Apnea - cocktail server Hx Hypertension Yes: CONTROLLED WITH MED 09/11/24 [...] Tobacco Use History Tobacco Use History - cocktail server: Tobacco Use History - cocktail server Tobacco Use Smoking Status Former smoker 09/11/24 15:02 Hx Tobacco Use No 09/11/24 15:02 Years Smoking Packs Smoked per Day Smoking Cessation Date was No - quit smoking greater 09/11/24 15:02 within the last 15 years than 15 years ago Hx Smoking Cessation Date Hx Smoking Cessation No 09/11/24 15:02 Counseling Hematologic Medial History Hematologic Hx - 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 Normal [facility] MRSA screenOrdered By: Mike Cavanaugh on 09-12-2024 Nasal Screen MRSA/MSSA [facility] Magnesiumon 09-12-2024 Magnesium [Mass/Vol] 1.7 mg/dL Normal 1.5-2.2 [facility] Comment on above: Performed By: #### M 600.2200, M600.2000, M100.3000, M300.2000, M300.3000, M100.2000, M100.4001 #### [facility] [address] [place], [address] Magnesium (Unsp spec) [Mass/ Vol]Ordered By: Omar Walters on 09-12-2024 Magnesium [Mass/Vol] 1.7 mg/dL 1.5-2.2 [facility] Appearance (Syn fld)Ordered By: Fahad Cavanaugh on 09-11-2024 Synovial Fluid Appearance Cloudy CLEAR [facility] Bacteria identified Anaer cx Nom (Unsp spec)Ordered By: Fahad Cavanaugh on 09-11-2024 Anaerobic Culture No anaerobic bacteria isolated. [facility] Basic Metabolic Profile (BMP )on 09-11-2024 BUN/CRE 28.5 RATIO High 10-20 [facility] Comment on above: Performed By: #### M 600.2200, M600.2000, M100.3000, M300.2000, M300.3000, M100.2000, M100.4001 #### [facility] [address] [place], [address] Calcium [Mass/Vol] 9.5 mg/dL Normal 7.6-11.0 [facility] Comment on above: Performed By: #### M 600.2200, M600.2000, M100.3000, M300.2000, M300.3000, M100.2000, M100.4001 #### [facility] [address] [place], [address] Chloride [Moles/Vol] 96 mmol/L Low 98-108 [facility] Comment on above: Performed By: #### M 600.2200, M600.2000, M100.3000, M300.2000, M300.3000, M100.2000, M100.4001 #### [facility] [address] [place], [address] CO2 [Moles/Vol] 31.1 mmol/L Normal 21.0-32.0 [facility] Comment on above: Performed By: #### M 600.2200, M600.2000, M100.3000, M300.2000, M300.3000, M100.2000, M100.4001 #### [facility] [address] [place], [address] Creatinine [Mass/Vol] 1.01 mg/dL Normal 0.70-1.20 [facility] Comment on above: Performed By: #### M 600.2200, M600.2000, M100.3000, M300.2000, M300.3000, M100.2000, M100.4001 #### [facility] [address] [place], [address] GAP 11 Normal 5-15 [facility] Comment on above: Performed By: #### M 600.2200, M600.2000, M100.3000, M300.2000, M300.3000, M100.2000, M100.4001 #### [facility] [address] [place], [address] GFR/1.73 sq M.predicted among non-blacks MDRD (S/P/Bld) [Vol rate/Area] 58 mL/min/{1.73_m2} Low >60 [facility] Comment on above: Result Comment: mL/m in/1.73m2 CKD-EPI Creatinine Equation (2020) Performed By: #### M 600.2200, M600.2000, M100.3000, M300.2000, M300.3000, M100.2000, M100.4001 #### [facility] [address] [place], [address] Glucose [Mass/Vol] 105 mg/dL High 70-99 [facility] Comment on above: Performed By: #### M 600.2200, M600.2000, M100.3000, M300.2000, M300.3000, M100.2000, M100.4001 #### [facility] [address] [place], [address] Potassium [Moles/Vol] 3.3 mmol/L Normal 3.3-5.1 [facility] Comment on above: Performed By: #### M 600.2200, M600.2000, M100.3000, M300.2000, M300.3000, M100.2000, M100.4001 #### [facility] [address] [place], [address] Sodium [Moles/Vol] 137 mmol/L Normal 133-145 [facility] Comment on above: Performed By: #### M 600.2200, M600.2000, M100.3000, M300.2000, M300.3000, M100.2000, M100.4001 #### [facility] [address] [place], [address] Urea nitrogen [Mass/Vol] 29 mg/dL High 4-19 [facility] Comment on above: Performed By: #### M 600.2200, M600.2000, M100.3000, M300.2000, M300.3000, M100.2000, M100.4001 #### [facility] [address] [place], [address] Body fluid cultureOrdered By : Fahad Cavanaugh on 09-11-2024 Body Fluid Culture Meth. resistant Staph. aureus Abnormal [facility] Cells Counted Total (Syn fld ) [#]Ordered By: Fahad Cavanaugh on 09-11-2024 Synovial Fluid Total Cells Counted 43.9600 10^3/uL High 0.000-0.000 [facility] Comment on above: This is the Total Nu mber of Nucleated Cell Types in the Body Fluid. Color (Syn fld)Ordered By: Celine Cavanaugh on 09-11-2024 Synovial Fluid Color Yellow Pale Yellow [facility] Gram stainOrdered By: Fahad Cavanaugh on 09-11-2024 Microscopic observation Gram stain Nom (Unsp spec) [facility] Lymphocytes/100 WBC (Bld)Ord ered By: Fahad Cavanaugh on 09-11-2024 Synovial Fluid Lymphocytes 4 % [facility] Monocytes/100 WBC (Syn fld)O rdered By: Fahad Cavanaugh on 09-11-2024 Synovial Fluid Monocytes 2 % [facility] Mononuclear cells Auto (Syn fld) [#/Vol]Ordered By: Fahad Cavanaugh on 09-11-2024 Synovial Fluid Mononuclear WBCs 3.460 10^3/ul [facility] Mononuclear cells/100 WBC (S yn fld)Ordered By: Fahad Cavanaugh on 09-11-2024 Synovial Fluid Mononuclear WBCs % 9.0 % [facility] Neutrophils/100 WBC (Syn fld )Ordered By: Fahad Cavanaugh on 09-11-2024 Synovial Fluid Neutrophils 94 % High 0-25 [facility] Pathologist review Fahad (Unsp spec) [Interp]Ordered By: Fahad Cavanaugh on 09-11-2024 Synovial Fluid Pathologist Comment May follow [facility] Polymorphonuclear cells Auto (Syn fld) [#/Vol]Ordered By: Fahad Cavanaugh on 09-11-2024 Synovial Fluid Polynuclear WBCs 34.879 10^3/uL [facility] Polymorphonuclear cells/100 WBC Auto (Syn fld)Ordered By: Fahad Cavanaugh on 09-11-2024 Synovial Fluid Polynuclear WBCs % 91.0 % [facility] RBC (Syn fld) [#/Vol]Ordered By: Fahad Cavanaugh on 09-11-2024 Synovial Fluid RBC 0.015 10^6/uL High 0-0 [facility] Specimen source Nom (Body fl d)Ordered By: Fahad Cavanaugh on 09-11-2024 Synovial Fluid Source SHOULDER [facility] Viscosity Ql (Syn fld)Ordere d By: Fahad Cavanaugh on 09-11-2024 Synovial Fluid Viscosity Viscous HIGH [facility] WBC Auto (Syn fld) [#/Vol]Or dered By: Fahad Cavanaugh on 09-11-2024 Synovial Fluid WBC 43.6850 10^3/uL High 0.000-0.002 [facility] C-REACTIVE PROTEINon 025 CRP 13.29 mg/dl High 0.00 - 0.90 [facility] Comment on above: Performed By: #### 2 [address] #### [place] [address] CBC + DIFFon 09-10-2024 Baso # 0.03 x10EE3/UL Normal 0.00 - 0.10 [facility] Comment on above: Performed By: #### 2 94470 #### [facility],[address] [place] [address] Basophils/100 WBC (Bld) 0.3 % Normal 0.0 - 2.0 [facility] Comment on above: Performed By: #### 2 70574 #### [facility],[address] [place] [address] CBC + DIFF Normal [facility] Comment on above: Result Comment: CBC- COMPLETE BLOOD COUNT Performed By: #### 2 17188 #### [facility],[address] [place] [address] EO # 0.22 x10EE3/UL Normal 0.00 - 0.50 [facility] Comment on above: Performed By: #### 2 45126 #### [facility],[address] [place] [address] Eosinophils/100 WBC (Bld) 2.2 % Normal 0.0 - 7.0 [facility] Comment on above: Performed By: #### 2 82385 #### [facility],[address] [place] [address] Erythrocyte distribution width (RBC) [Ratio] 13.4 % Normal 12.0 - 15.6 [facility] Comment on above: Performed By: #### 2 18093 #### [facility],[address] [place] [address] Hematocrit (Bld) [Volume fraction] 39.5 % Normal 34.0 - 46.0 [facility] Comment on above: Performed By: #### 2 49929 #### [facility],[address] [place] [address] Hemoglobin (Bld) [Mass/Vol] 13.6 g/dL Normal 12.0 - 16.0 [facility] Comment on above: Performed By: #### 2 76802 #### [facility],[address] [place] [address] Lymph # 1.07 x10EE3/UL Normal 0.80 - 2.80 [facility] Comment on above: Performed By: #### 2 01514 #### [facility],[address] [place], [place] [address] Lymphocytes/100 WBC (Bld) 10.6 % Low 20.0 - 45.0 [facility] Comment on above: Performed By: #### 2 47568 #### [facility],[address] [place] [address] MANUAL DIFF N/A Normal [facility] Comment on above: Performed By: #### 2 97607 #### [facility],[address] [place] [address] MCH (RBC) [Entitic mass] 31 pg Normal 27 - 33 [facility] Comment on above: Performed By: #### 2 99166 #### [facility],[address] [place] [address] MCHC 35 X10 3 Normal 32 - 36 [facility] Comment on above: Performed By: #### 2 93384 #### [facility],[address] [place] [address] MCV (RBC) [Entitic vol] 90 fL Normal 80 - 99 [facility] Comment on above: Performed By: #### 2 77150 #### [facility],[address] [place] [address] Rusk # 1.00 x10EE3/UL Normal 0.20 - 1.00 [facility] Comment on above: Performed By: #### 2 10796 #### [facility],[address] [place], [place] [address] MONOS % 9.9 % Normal 0.0 - 10.0 [facility] Comment on above: Performed By: #### 2 50695 #### [facility],[address] [place] [address] Morphology Fahad (Bld) [Interp] N/A Normal [facility] Comment on above: Performed By: #### 2 80927 #### [facility],[address] [place] [address] Neut # 7.73 x10EE3/UL High 1.50 - 7.10 [facility] Comment on above: Performed By: #### 2 89050 #### [facility],[address] [place] [address] Neutrophils/100 WBC (Bld) 77.0 % High 46.0 - 76.0 [facility] Comment on above: Performed By: #### 2 33730 #### [facility],[address] [place] [address] PLATELET 233 x10EE3/UL Normal 150 - 450 [facility] Comment on above: Performed By: #### 2 29910 #### [facility],[address] [place] [address] Platelet mean volume (Bld) [Entitic vol] 8.5 fL Normal 6.6 - 10.5 [facility] Comment on above: Result Comment: AUTO MATED DIFFERENTIAL Performed By: #### 2 59040 #### [facility],[address] [place] [address] RBC 4.39 x 10EE6/UL Normal 4.10 - 5.30 [facility] Comment on above: Performed By: #### 2 49290 #### [facility],[address] [place] [address] WBC 10.0 x 10EE3/UL Normal 4.5 - 10.8 [facility] Comment on above: Performed By: #### 2 20571 #### [facility],[address] [place] [address] SEDRATEon 09-10-2024 SEDRATE 83 mm/hr High 0 - 30 [facility] Comment on above: Performed By: #### 2 38793 #### [facility],[address] [place] [address] Comprehensive Metabolic Prof ilon 04-29-2024 Albumin [Mass/Vol] 3.7 g/dL Normal 3.2-5.0 [facility] Comment on above: Order Comment: Order Date: 04/29/24Order Info: 0786-1 - CMP Performed By: #### M 600.2200, M600.2000, M100.3000, M300.2000, M300.3000, M100.2000, M100.4001 #### [facility] [address] [place], [place], [address] Albumin/Globulin [Mass ratio] 1.1 {ratio} Normal 0.9-2.4 [facility] Comment on above: Order Comment: Order Date: 04/29/24Order Info: 0786-1 - CMP Performed By: #### M 600.2200, M600.2000, M100.3000, M300.2000, M300.3000, M100.2000, M100.4001 #### [facility] [address] [place], [place], [address] ALK P 95 U/L Normal 45-117 [facility] Comment on above: Order Comment: Order Date: 04/29/24Order Info: 0786-1 - CMP Performed By: #### M 600.2200, M600.2000, M100.3000, M300.2000, M300.3000, M100.2000, M100.4001 #### [facility] [address] [place], [place], [address] ALT [Catalytic activity/Vol] 26 U/L Normal 13-56 [facility] Comment on above: Order Comment: Order Date: 04/29/24Order Info: 0786-1 - CMP Performed By: #### M 600.2200, M600.2000, M100.3000, M300.2000, M300.3000, M100.2000, M100.4001 #### [facility] [address] [place], [place], [address] AST [Catalytic activity/Vol] 22 U/L Normal 15-37 [facility] Comment on above: Order Comment: Order Date: 04/29/24Order Info: 0786-1 - CMP Performed By: #### M 600.2200, M600.2000, M100.3000, M300.2000, M300.3000, M100.2000, M100.4001 #### [facility] [address] [place], [address] Bilirubin [Mass/Vol] 0.70 mg/dL Normal 0.20-1.00 [facility] Comment on above: Order Comment: Order Date: 04/29/24Order Info: 0786-1 - CMP Result Comment: For patients on eltrombopag therapy, use of Dimension Hartman TBIL is not recommended. Performed By: #### M 600.2200, M600.2000, M100.3000, M300.2000, M300.3000, M100.2000, M100.4001 #### [facility] [address] [place], [address] BUN/CRE 21.7 RATIO High 10-20 [facility] Comment on above: Order Comment: Order Date: 04/29/24Order Info: 0786-1 - CMP Performed By: #### M 600.2200, M600.2000, M100.3000, M300.2000, M300.3000, M100.2000, M100.4001 #### [facility] [address] [place], [address] CA,Total 9.4 mg/dL Normal 8.5-10.1 [facility] Comment on above: Order Comment: Order Date: 04/29/24Order Info: 0786-1 - CMP Performed By: #### M 600.2200, M600.2000, M100.3000, M300.2000, M300.3000, M100.2000, M100.4001 #### [facility] [address] [place], [address] Chloride [Moles/Vol] 100 mmol/L Normal 98-107 [facility] Comment on above: Order Comment: Order Date: 04/29/24Order Info: 0786-1 - CMP Performed By: #### M 600.2200, M600.2000, M100.3000, M300.2000, M300.3000, M100.2000, M100.4001 #### [facility] [address] [place], [address] CO2 [Moles/Vol] 32.0 mmol/L Normal 21.0-32.0 [facility] Comment on above: Order Comment: Order Date: 04/29/24Order Info: 0786-1 - CMP Performed By: #### M 600.2200, M600.2000, M100.3000, M300.2000, M300.3000, M100.2000, M100.4001 #### [facility] [address] [place], [place], [address] Creatinine [Mass/Vol] 1.06 mg/dL High 0.55-1.02 [facility] Comment on above: Order Comment: Order Date: 04/29/24Order Info: [id number] - CMP Result Comment: The validity of the calculated GFR GFRAA in patients over 70 years has not been determined. Clinical correlation is essential. Performed By: #### M 600.2200, M600.2000, M100.3000, M300.2000, M300.3000, M100.2000, M100.4001 #### [facility] [address] [place], [place], [address] EST GFR - AA 65 mL/min Normal >60 [facility] Comment on above: Order Comment: Order Date: 04/29/24Order Info: [id number] - CMP Result Comment: Afri can [place] Citizen GFR Calc Performed By: #### M 600.2200, M600.2000, M100.3000, M300.2000, M300.3000, M100.2000, M100.4001 #### [facility] [address] [place], [address] GAP 5 Normal 5-15 [facility] Comment on above: Order Comment: Order Date: 04/29/24Order Info: [id number] - CMP Performed By: #### M 600.2200, M600.2000, M100.3000, M300.2000, M300.3000, M100.2000, M100.4001 #### [facility] [address] [place], [place], [address] GFR/1.73 sq M.predicted among non-blacks MDRD (S/P/Bld) [Vol rate/Area] 54 mL/min/{1.73_m2} Low >60 [facility] Comment on above: Order Comment: Order Date: 04/29/24Order Info: [id number] - CMP Result Comment: Non- GFR Calc Performed By: #### M 600.2200, M600.2000, M100.3000, M300.2000, M300.3000, M100.2000, M100.4001 #### [facility] [address] [place], [place], [id number] Globulin (S) [Mass/Vol] 3.3 g/dL Normal 2.2-4.2 [facility] Comment on above: Order Comment: Order Date: 04/29/24Order Info: [id number] - CMP Performed By: #### M 600.2200, M600.2000, M100.3000, M300.2000, M300.3000, M100.2000, M100.4001 #### [facility] [address] [place], [place], [id number] Glucose [Mass/Vol] 95 mg/dL Normal 74-106 [facility] Comment on above: Order Comment: Order Date: 04/29/24Order Info: [id number] - CMP Performed By: #### M 600.2200, M600.2000, M100.3000, M300.2000, M300.3000, M100.2000, M100.4001 #### [facility] [address] [place], [place], [id number] Potassium [Moles/Vol] 4.3 mmol/L Normal 3.5-5.1 [facility] Comment on above: Order Comment: Order Date: 04/29/24Order Info: [id number] - CMP Performed By: #### M 600.2200, M600.2000, M100.3000, M300.2000, M300.3000, M100.2000, M100.4001 #### [facility] [address] [place], [address] Sodium [Moles/Vol] 137 mmol/L Normal 136-145 [facility] Comment on above: Order Comment: Order Date: 04/29/24Order Info: [id number] - CMP Performed By: #### M 600.2200, M600.2000, M100.3000, M300.2000, M300.3000, M100.2000, M100.4001 #### [facility] [address] [place], [place], [id number] T PROT 7.0 g/dL Normal 6.4-8.2 [facility] Comment on above: Order Comment: Order Date: 04/29/24Order Info: [id number] - CMP Performed By: #### M 600.2200, M600.2000, M100.3000, M300.2000, M300.3000, M100.2000, M100.4001 #### [facility] [address] [place], [place], [address] Urea nitrogen [Mass/Vol] 23 mg/dL High 7-18 [facility] Comment on above: Order Comment: Order Date: 04/29/24Order Info: [id number] - CMP Performed By: #### M 600.2200, M600.2000, M100.3000, M300.2000, M300.3000, M100.2000, M100.4001 #### [facility] [address] [place], [address] Vitamin D,25 Hydroxyon 04-29 Vitamin D 25-OH 12.2 ng/mL Normal [facility] Comment on above: Order Comment: Order Date: 04/29/24Order Info: [id number] - VITD25 Result Comment: Lori min D 25(OH) Status Range Deficiency <20 ng/mL (50nmol/L) Insufficiency 20 - 30 ng/mL (50 - 75 nmol/L) Sufficiency 30 - 100 ng/mL (75 - 250 nmol/L) Toxicity >100 ng/mL (>250 nmol/L) Performed By: #### M 600.2200, M600.2000, M100.3000, M300.2000, M300.3000, M100.2000, M100.4001 #### [facility] [address] [place], [address] Absolute lymphocyte countOrd ered By: Hernando Grimes on 10-19-2023 Lymphocytes Auto (Unsp spec) [#/Vol] 1.54 10*3/uL 0.83-4.51 [facility] Automated lymphocyte count a s percentage of total leukocytesOrdered By: Hernando Grimes on 10-19-2023 Lymphocytes/100 WBC Auto (Unsp spec) 25.0 % 19-41 [facility] Basophil percentageOrdered B y: Hernando Grimes on 10-19-2023 Basophils/100 WBC (Bld) 0.6 % 0-1 [facility] Bilirubin [Mass/Vol] 0.40 mg/dL 0.20-1.00 [facility] Comment on above: For patients on eltr ombopag therapy, use of Dimension Hartman TBIL is not recommended. Chloride [Moles/Vol] 103 mmol/L 98-107 [facility] Eosinophils/100 WBC (Bld) 2.8 % 0-5 [facility] Glucose [Mass/Vol] 105 mg/dL 74-106 [facility] Comment on above: Fasting Glucose resu lt from 100 to 125 mg/dL suggests IMPAIRED HOMEOSTASIS per A.D.A. criteria. Hemoglobin (Bld) [Mass/Vol] 14.4 g/dL 12.0-15.0 [facility] Monocytes/100 WBC (Bld) 8.1 % 0-10 [facility] Neutrophils (Bld) [#/Vol] 3.9 10*3/uL 2.0-7.7 [facility] Neutrophils/100 WBC (Bld) 63.0 % 47-70 [facility] Potassium [Moles/Vol] 4.8 mmol/L 3.5-5.1 [facility] Protein [Mass/Vol] 7.5 g/dL 6.4-8.2 [facility] Sodium [Moles/Vol] 139 mmol/L 136-145 [facility] WBC (Bld) [#/Vol] 6.2 10*3/uL 4.4-11.0 [facility] Determination of erythrocyte mean corpuscular volume (MCV)Ordered By: Hernando Grimes on 10-19-2023 MCV (RBC) [Entitic vol] 94.8 fL 81-99 [facility] Erythrocyte distribution wid th ratioOrdered By: Hernando Grimes on 10-19-2023 Erythrocyte distribution width (RBC) [Ratio] 13.9 % 11.6-14.6 [facility] Erythrocyte distribution wid th standard deviationOrdered By: Hernando Grimes on 10-19-2023 Erythrocyte distribution width (RBC) [Entitic vol] 49.0 fL 35.1-43.9 [facility] Hematocrit Auto (Bld) [Volum e fraction]Ordered By: Hernando Grimes on 10-19-2023 Hematocrit (Bld) [Volume fraction] 46.0 % 37-47 [facility] Immature granulocytes/100 WB C Auto (Bld)Ordered By: Hernando Grimes on 10-19-2023 Immature granulocytes/100 WBC (Bld) 0.500 % 0.0-0.9 [facility] Comment on above: IG% - Immature Granu locytes (promyelocytes, myelocytes and metamyelocytes) > 1% indicates that a LEFT SHIFT is Present. Laboratory - Chemistry and C hemistry - challengeOrdered By: Hernando Grimes on 10-19-2023 Albumin/Globulin [Mass ratio] 1.0 {ratio} 0.9-2.4 [facility] ALP [Catalytic activity/Vol] 121 U/L 45-117 [facility] ALT [Catalytic activity/Vol] 28 U/L 13-56 [facility] CO2 [Moles/Vol] 32.0 mmol/L 21.0-32.0 [facility] Ferritin [Mass/Vol] 72 ng/mL 8-[address] [facility] Globulin (S) [Mass/Vol] 3.8 g/dL 2.2-4.2 [facility] Magnesium [Mass/Vol] 2.0 mg/dL 1.6-2.6 [facility] Urea nitrogen/Creatinine [Mass ratio] 28.6 mg/mg 10-20 [facility] - Hematology and Cell countsOrdered By: Hernando Grimes on 10-19-2023 MCH (RBC) [Entitic mass] 29.7 pg 27.0-32.0 [facility] MCHC (RBC) [Mass/Vol] 31.3 g/dL 32-36 [facility] Nucleated RBC/100 WBC (Bld) [Ratio] 0 % 0-5 [facility] Platelet mean volume (Bld) [Entitic vol] 11.8 fL 6.2-12.0 [facility] Platelets (Bld) [#/Vol] 192 10*3/uL 150-450 [facility] No Panel InformationOrdered By: Hernando Grimes on 10-19-2023 Estimated GFR (MDRD) Amer 61 mL/min >60 [facility] Comment on above: GFR Calc Estimated GFR (MDRD) Non-Af Amer 50 mL/min >60 [facility] Comment on above: Non- GFR Calc Urine Microalbumin/Creatinine Ratio 180.8 mg/g CRE <30 [facility] RBC Auto (Bld) [#/Vol]Ordere d By: Hernando Grimes on 10-19-2023 RBC (Bld) [#/Vol] 4.85 10*6/uL 4.2-5.4 [facility] Serum or plasma calcium lisa urement (mass/volume)Ordered By: Hernando Grimes on 10-19-2023 Calcium [Mass/Vol] 9.8 mg/dL 8.5-10.1 [facility] Serum or plasma creatinine m easurement (mass/volume)Ordered By: Hernando Grimes on 10-19-2023 Creatinine [Mass/Vol] 1.12 mg/dL 0.55-1.02 [facility] Comment on above: The validity of the calculated GFR & GFRAA in patients over 70 years has not been determined. Clinical correlation is essential. Serum or plasma thyroid stim ulating hormone (TSH) measurement (units/volume)Ordered By: Hernando Grimes on 10-19-2023 TSH Qn 1.61 uIU/mL 0.358-3.74 [facility] Serum or plasma urea nitroge n measurement (mass/volume)Ordered By: Hernando Grimes on 10-19-2023 Urea nitrogen [Mass/Vol] 32 mg/dL 7-18 [facility] Thin prep Papanicolaou smear with manual screeningOrdered By: Hernando Grimes on 10-19-2023 Thin prep Papanicolaou smear with manual screening 3.7 g/dL 3.2-5.0 [facility] Thin prep Papanicolaou smear with manual screening 25 U/L 15-37 [facility] Thin prep Papanicolaou smear with manual screening 4 5-15 [facility] Thin prep Papanicolaou smear with manual screening 79.0 mg/L NO RANGE EST. [facility] Urine creatinine measurement (mass/volume)Ordered By: Hernando Grimes on 10-19-2023 Creatinine (U) [Mass/Vol] 43.70 mg/dL NO RANGE EST. [facility] Absolute lymphocyte countOrd ered By: Dr. Grimes on 10-18-2022 Lymphocytes Auto (Unsp spec) [#/Vol] 1.84 10*3/uL 0.83-4.51 [facility] Basophil percentageOrdered B y: Dr. Grimes on 10-18-2022 Basophils/100 WBC (Bld) 0.9 % 0-1 [facility] Bilirubin [Mass/Vol] 0.50 mg/dL 0.20-1.00 [facility] Comment on above: For patients on eltr ombopag therapy, use of Dimension Hartman TBIL is not recommended. Chloride [Moles/Vol] 106 mmol/L 98-107 [facility] Cholesterol [Mass/Vol] 315 mg/dL <200 [facility] Comment on above: <200 mg/dL Desirable 200-240 mg/dL Borderline >240 mg/dL High Risk Eosinophils/100 WBC (Bld) 3.2 % 0-5 [facility] Glucose [Mass/Vol] 94 mg/dL 74-106 [facility] Neutrophils (Bld) [#/Vol] 4.3 10*3/uL 2.0-7.7 [facility] Neutrophils/100 WBC (Bld) 61.3 % 47-70 [facility] Potassium [Moles/Vol] 4.5 mmol/L 3.5-5.1 [facility] Protein [Mass/Vol] 7.1 g/dL 6.4-8.2 [facility] Sodium [Moles/Vol] 137 mmol/L 136-145 [facility] Triglyceride [Mass/Vol] 246 mg/dL <199 [facility] Comment on above: The drugs N-Acetylcy steine and Metamizole may falsely depress this assay.Serum Triglycerides Reference Interval Normal <150 mg/dL Borderline high 150 - 199 mg/dL High 200 - 499 mg/dL Very High > or = 500 mg/dL WBC (Bld) [#/Vol] 6.9 10*3/uL 4.4-11.0 [facility] Blood erythrocytes count (nu mber/volume)Ordered By: Dr. Grimes on 10-18-2022 RBC (Bld) [#/Vol] 4.89 10*6/uL 4.2-5.4 [facility] Blood hemoglobin measurement (mass/volume)Ordered By: Dr. Grimes on 10-18-2022 Hemoglobin (Bld) [Mass/Vol] 14.1 g/dL 12.0-15.0 [facility] Blood lymphocytes/100 leukoc ytesOrdered By: Dr. Grimes on 10-18-2022 Lymphocytes/100 WBC (Bld) 26.6 % 19-41 [facility] Blood monocytes/100 leukocyt esOrdered By: Dr. Grimes on 10-18-2022 Monocytes/100 WBC (Bld) 7.4 % 0-10 [facility] Blood platelet mean volumeOr dered By: Dr. Grimes on 10-18-2022 Platelet mean volume (Bld) [Entitic vol] 10.9 fL 6.2-12.0 [facility] Determination of erythrocyte mean corpuscular volume (MCV)Ordered By: Dr. Grimes on 10-18-2022 MCV (RBC) [Entitic vol] 92.6 fL 81-99 [facility] Hematocrit Auto (Bld) [Volum e fraction]Ordered By: Dr. Grimes on 10-18-2022 Hematocrit (Bld) [Volume fraction] 45.3 % 37-47 [facility] - Chemistry and C hemistry - challengeOrdered By: Dr. Grimes on 10-18-2022 ALP [Catalytic activity/Vol] 113 U/L 45-117 [facility] ALT [Catalytic activity/Vol] 34 U/L 13-56 [facility] CO2 [Moles/Vol] 27.0 mmol/L 21.0-32.0 [facility] Globulin (S) [Mass/Vol] 3.6 g/dL 2.2-4.2 [facility] Urea nitrogen/Creatinine [Mass ratio] 24.5 mg/mg 10-20 [facility] - Hematology and Cell countsOrdered By: Dr. Grimes on 10-18-2022 Erythrocyte distribution width (RBC) [Entitic vol] 45.0 fL 35.1-43.9 [facility] Erythrocyte distribution width (RBC) [Ratio] 13.4 % 11.6-14.6 [facility] Immature granulocytes/100 WBC (Bld) 0.600 % 0.0-0.9 [facility] Comment on above: IG% - Immature Granu locytes (promyelocytes, myelocytes and metamyelocytes) > 1% indicates that a LEFT SHIFT is Present. MCH (RBC) [Entitic mass] 28.8 pg 27.0-32.0 [facility] Nucleated RBC/100 WBC (Bld) [Ratio] 0 % 0-5 [facility] MCHC Auto (RBC) [Mass/Vol]Or dered By: Dr. Grimes on 10-18-2022 MCHC (RBC) [Mass/Vol] 31.1 g/dL 32-36 [facility] No Panel InformationOrdered By: Dr. Grimes on 10-18-2022 Estimated GFR (MDRD) Amer 79 mL/min >60 [facility] Comment on above: GFR Calc Estimated GFR (MDRD) Non-Af Amer 65 mL/min >60 [facility] Comment on above: Non- GFR Calc Urine Microalbumin/Creatinine Ratio 266.0 mg/g CRE <30 [facility] Vitamin D 25-Hydroxy 27.3 ng/mL [facility] Comment on above: Vitamin D 25(OH) Sta tus Range Deficiency <20 ng/mL (50nmol/L) Insufficiency 20 - 30 ng/mL (50 - 75 nmol/L) Sufficiency 30 - 100 ng/mL (75 - 250 nmol/L) Toxicity >100 ng/mL (>250 nmol/L) Platelets bldOrdered By: Dr. Grimes on 10-18-2022 Platelets (Bld) [#/Vol] 196 10*3/uL 150-450 [facility] Serum or plasma albumin lisa urement (mass/volume)Ordered By: Dr. Grimes on 10-18-2022 Albumin [Mass/Vol] 3.5 g/dL 3.2-5.0 [facility] Serum or plasma albumin/glob ulin mass ratioOrdered By: Dr. Grimes on 10-18-2022 Albumin/Globulin [Mass ratio] 1.0 {ratio} 0.9-2.4 [facility] Serum or plasma calcium lisa urement (mass/volume)Ordered By: Dr. Grimes on 10-18-2022 Calcium [Mass/Vol] 9.2 mg/dL 8.5-10.1 [facility] Serum or plasma cholesterol in HDL measurement (mass/volume)Ordered By: Dr. Grimes on 10-18-2022 Cholesterol in HDL [Mass/Vol] 56 mg/dL >40 [facility] Comment on above: The drugs N-Acetylcy steine and Metamizole may falsely depress this assay. Reference Range HDL <40 mg/dL Low HDL Cholesterol HDL >or= 60 mg/dL High HDL Cholesterol Serum or plasma cholesterol in VLDL measurement (mass/volume)Ordered By: Dr. Grimes on 10-18-2022 Cholesterol in VLDL [Mass/Vol] 49 mg/dL 5-40 [facility] Serum or plasma creatinine m easurement (mass/volume)Ordered By: Dr. Grimes on 10-18-2022 Creatinine [Mass/Vol] 0.90 mg/dL 0.55-1.02 [facility] Comment on above: The validity of the calculated GFR & GFRAA in patients over 70 years has not been determined. Clinical correlation is essential. Serum or plasma ferritin bubba surement (mass/volume)Ordered By: Dr. Grimes on 10-18-2022 Ferritin [Mass/Vol] 65 ng/mL 8-252 [facility] Serum or plasma low density lipoprotein (LDL) cholesterol measurement (mass/volume)Ordered By: Dr. Grimes on 10-18-2022 Cholesterol in LDL [Mass/Vol] 210 mg/dL 0-130 [facility] Serum or plasma urea nitroge n measurement (mass/volume)Ordered By: Dr. Grimes on 10-18-2022 Urea nitrogen [Mass/Vol] 22 mg/dL 7-18 [facility] Thin prep Papanicolaou smear with manual screeningOrdered By: Dr. Grimes on 10-18-2022 Thin prep Papanicolaou smear with manual screening 25 U/L 15-37 [facility] Thin prep Papanicolaou smear with manual screening 4 5-15 [facility] Thin prep Papanicolaou smear with manual screening 104.0 mg/L NO RANGE EST. [facility] Urine creatinine measurement (mass/volume)Ordered By: Dr. Grimes on 10-18-2022 Creatinine (U) [Mass/Vol] 39.10 mg/dL NO RANGE EST. [facility] Whole blood hemoglobin A1c/t otal hemoglobin ratio (mass fraction)Ordered By: Dr. Grimes on 10-18-2022 HbA1c (Bld) [Mass fraction] 5.6 % 3.8-5.6 [facility] Comment on above: Normal < 5.7 % Predi abetic 5.7 - 6.4 % Diabetic >or= 6.5 % Please note range changes. No Panel Informationon 04-20 Stool Pancreatic Elastase > 500 >200 [facility] Work Phone: Comment on above: Result Units: ug Estephania st./g Severe Pancreatic Insufficiency: <100 Moderate Pancreatic Insufficiency: 100 - 200 Normal: >200Performed at: [facility] - [facility] [address] [id number] Director: Javier Christie MD, Phone: [phone] Basophil percentageon 2021 Bilirubin [Mass/Vol] 0.70 mg/dL 0.20-1.00 [facility] Work Phone: Comment on above: For patients on eltr ombopag therapy, use of Dimension Hartman TBIL is not recommended. Chloride [Moles/Vol] 100 mmol/L 98-107 [facility] Work Phone: Cholesterol [Mass/Vol] 286 mg/dL <200 [facility] Work Phone: Comment on above: <200 mg/dL Desirable 200-240 mg/dL Borderline >240 mg/dL High Risk Glucose [Mass/Vol] 101 mg/dL 74-106 [facility] Work Phone: Comment on above: Fasting Glucose resu lt from 100 to 125 mg/dL suggests IMPAIRED HOMEOSTASIS per A.D.A. criteria. Potassium [Moles/Vol] 3.5 mmol/L 3.5-5.1 [facility] Work Phone: Protein [Mass/Vol] 7.5 g/dL 6.4-8.2 [facility] Work Phone: Sodium [Moles/Vol] 137 mmol/L 136-145 [facility] Work Phone: Triglyceride [Mass/Vol] 202 mg/dL <199 [facility] Work Phone: Comment on above: The drugs N-Acetylcy steine and Metamizole may falsely depress this assay.Serum Triglycerides Reference Interval Normal <150 mg/dL Borderline high 150 - 199 mg/dL High 200 - 499 mg/dL Very High > or = 500 mg/dL Laboratory - Chemistry and C hemistry - challengeon 04-19-2022 Albumin [Mass/Vol] 4.0 g/dL 2.9-4.4 [facility] Work Phone: ALP [Catalytic activity/Vol] 107 U/L 45-117 [facility] Work Phone: ALT [Catalytic activity/Vol] 35 U/L 13-56 [facility] Work Phone: CO2 [Moles/Vol] 31.0 mmol/L 21.0-32.0 [facility] Work Phone: Cobalamin (Vitamin B12) [Mass/Vol] 405 pg/mL 211-911 [facility] Work Phone: Globulin (S) [Mass/Vol] 3.6 g/dL 2.2-4.2 [facility] Work Phone: Urea nitrogen/Creatinine [Mass ratio] 16.6 mg/mg 10-20 [facility] Work Phone: No Panel Informationon 04-19 Addendum Document Comment . [facility] Work Phone: Comment on above: The SPE pattern appe ars unremarkable. Evidence ofmonoclonal protein is not apparent.Performed at: [facility] [id number] [place], [place] [id number] Director: Jorden Figueroa PhD, Phone: [phone] Jbkud-8-Xxnuogukk 0.3 g/dL 0.0-0.4 [facility] Work Phone: Ndipj-6-Upeesvtho 0.8 g/dL 0.4-1.0 [facility] Work Phone: Anti-Nuclear Antibody Screen Negative Negative [facility] Work Phone: Comment on above: Performed at: [facility] [employer] [id number] [place], [place] [id number] Director: Jorden Figueroa PhD, Phone: [phone] Estimated GFR (MDRD) Amer 73 mL/min >60 [facility] Work Phone: Comment on above: GFR Calc Estimated GFR (MDRD) Non-Af Amer 60 mL/min >60 [facility] Work Phone: Comment on above: Non- GFR Calc Gamma Globulins 1.0 g/dL 0.4-1.8 [facility] Work Phone: Urine Microalbumin/Creatinine Ratio 94.8 mg/g CRE <30 [facility] Work Phone: Protein Fractions Elph [Inte rp]on 04-19-2022 Protein Fractions [Interp] Comment . [facility] Work Phone: Comment on above: Protein electrophore sis scan will follow via computer,mail, or resp ther delivery. Serum albumin to globulin ra bernard by protein electrophoresison 04-19-2022 Albumin/Globulin Elph [Mass ratio] 1.2 0.7-1.7 [facility] Work Phone: Serum globulin measurement ( mass/volume)on 04-19-2022 Globulin (S) [Mass/Vol] 3.3 g/dL 2.2-3.9 [facility] Work Phone: Serum or plasma albumin lisa urement (mass/volume)on 04-19-2022 Albumin [Mass/Vol] 3.9 g/dL 3.2-5.0 [facility] Work Phone: Serum or plasma albumin/glob ulin mass ratioon 04-19-2022 Albumin/Globulin [Mass ratio] 1.1 {ratio} 0.9-2.4 [facility] Work Phone: Serum or plasma beta globuli n measurement by electrophoresis (mass/volume)on 04-19-2022 Beta globulin Elph [Mass/Vol] 1.2 g/dL 0.7-1.3 [facility] Work Phone: Serum or plasma calcium lisa urement (mass/volume)on 04-19-2022 Calcium [Mass/Vol] 9.7 mg/dL 8.5-10.1 [facility] Work Phone: Serum or plasma cholesterol in HDL measurement (mass/volume)on 04-19-2022 Cholesterol in HDL [Mass/Vol] 59 mg/dL >40 [facility] Work Phone: Comment on above: The drugs N-Acetylcy steine and Metamizole may falsely depress this assay. Reference Range HDL <40 mg/dL Low HDL Cholesterol HDL >or= 60 mg/dL High HDL Cholesterol Serum or plasma cholesterol in VLDL measurement (mass/volume)on 04-19-2022 Cholesterol in VLDL [Mass/Vol] 40 mg/dL 5-40 [facility] Work Phone: Serum or plasma creatinine m easurement (mass/volume)on 04-19-2022 Creatinine [Mass/Vol] 0.96 mg/dL 0.55-1.02 [facility] Work Phone: Comment on above: The validity of the calculated GFR & GFRAA in patients over 70 years has not been determined. Clinical correlation is essential. Serum or plasma folate measu rement (mass/volume)on 04-19-2022 Folate [Mass/Vol] 33.60 ng/mL 3.1-55.4 [facility] Work Phone: Serum or plasma low density lipoprotein (LDL) cholesterol measurement (mass/volume)on 04-19-2022 Cholesterol in LDL [Mass/Vol] 187 mg/dL 0-130 [facility] Work Phone: Serum or plasma urea nitroge n measurement (mass/volume)on 04-19-2022 Urea nitrogen [Mass/Vol] 16 mg/dL 01-17 [facility] Work Phone: Thin prep Papanicolaou smear with manual screeningon 04-19-2022 Thin prep Papanicolaou smear with manual screening 26 U/L 15-37 [facility] Work Phone: Thin prep Papanicolaou smear with manual screening 6 5-15 [facility] Work Phone: Thin prep Papanicolaou smear with manual screening 58.4 mg/L NO RANGE EST. [facility] Work Phone: Thin prep Papanicolaou smear with manual screening See comment [facility] Work Phone: Comment on above: Result: Not Observed Total protein bloodon 2021 Protein [Mass/Vol] 7.3 g/dL 6.0-8.5 [facility] Work Phone: Urine creatinine measurement (mass/volume)on 04-19-2022 Creatinine (U) [Mass/Vol] 61.60 mg/dL NO RANGE EST. [facility] Work Phone: Otheron 12-22-2006 CONVERTED ELECTRONIC SIGNATURE FERNANDO MARLEY M.D., PATHOLOGIST (Electronic signature on file) Final Signed Out: 12/22/2006 17:10 [facility] CONVERTED FINAL DIAGNOSIS RIGHT HUMERAL HEAD, EXCISION - DEGENERATIVE ARTHRITIS. [facility] CONVERTED ORDERING PROVIDER Ordering Provider: SIXTO NELSON [facility] Vital Signs Date Time Vital Sign Value Performing Clinician Facility 03-18-2025 20:09-0400 Body temperature 90.4 [degF] Dr. Hernando Grimes MD Work Phone: [facility] 03-18-2025 20:09-0400 Diastolic blood pressure 13 mm[Hg] Dr. Hernando Grimes MD Work Phone: [facility] 03-18-2025 20:09-0400 Heart rate 63 /min Dr. Hernando Grimes MD Work Phone: [facility] 03-18-2025 20:09-0400 Respiratory rate 14 /min Dr. Hernando Grimes MD Work Phone: [facility] 03-18-2025 20:09-0400 SaO2% (BldA) [Mass fraction] 95 % Dr. Hernando Grimes MD Work Phone: [facility] 03-18-2025 20:09-0400 Systolic blood pressure 32 mm[Hg] Dr. Hernando Grimes MD Work Phone: [facility] 03-18-2025 20:00-0400 Inhaled oxygen concentration 40 % Dr. Hernando Grimes MD Work Phone: [facility] 03-18-2025 17:48-0400 Inhaled oxygen flow rate 4 L/min Dr. Hernando Grimes MD Work Phone: [facility] 03-18-2025 14:56-0400 Body height 170.[address] Hernando Grimes MD Work Phone: [facility] 03-18-2025 14:56-0400 Body mass index (BMI) [Ratio] 38.7 kg/m2 Dr. Hernando Grimes MD Work Phone: [facility] 03-18-2025 14:56-0400 Body weight 112.[address] Hernando Grimes MD Work Phone: [facility] 10-08-2024 07:58-0400 Heart rate 80 /min Dr. Hernando Grimes MD Work Phone: [facility] 10-08-2024 06:30-0400 SaO2% (BldA) [Mass fraction] 95 % Dr. Hernando Grimes MD Work Phone: [facility] 10-07-2024 21:36-0400 Diastolic blood pressure 78 mm[Hg] Dr. Hernando Grimes MD Work Phone: 7(926)287-406890 [place] [address] 10-07-2024 21:36-0400 Systolic blood pressure 147 mm[Hg] Dr. Hernando Grimes MD Work Phone: 4(100)795-073790 [place] [address] 10-07-2024 20:02-0400 Body temperature 98.2 [degF] Dr. Hernando Grimes MD Work Phone: 8(556)167-586990 [place] [address] 10-07-2024 20:02-0400 Respiratory rate 16 /min Dr. Hernando Grimes MD Work Phone: 8(764)041-922690 [place] [address] 10-02-2024 14:29-0400 Body height 170.[address] Hernando Grimes MD Work Phone: 4(159)084-752990 [place] [address] 10-02-2024 14:29-0400 Body weight 106.[address] Hernando Grimes MD Work Phone: 7(089)616-128990 [place] [address] 10-01-2024 13:00-0400 Body mass index (BMI) [Ratio] 36.8 kg/m2 Dr. Hernando Grimes MD Work Phone: 4(844)304-245323 [place] [address] 09-18-2024 08:25-0400 Heart rate 87 /min Dr. Hernando Grimes MD Work Phone: 2(199)609-245690 [place] [address] 09-18-2024 07:25-0400 Respiratory rate 14 /min Dr. Hernando Grimes MD Work Phone: 2(212)332-721590 [place] [address] 09-18-2024 07:25-0400 SaO2% (BldA) [Mass fraction] 90 % Dr. Hernando Grimes MD Work Phone: 5(342)066-202490 [place] [address] 09-18-2024 07:20-0400 Body temperature 97.7 [degF] Dr. Hernando Grimes MD Work Phone: [facility] 09-18-2024 07:20-0400 Diastolic blood pressure 87 mm[Hg] Dr. Hernando Grimes MD Work Phone: [facility] 09-18-2024 07:20-0400 Systolic blood pressure 160 mm[Hg] Dr. Hernando Grimes MD Work Phone: [facility] 09-16-2024 14:49-0400 Inhaled oxygen flow rate 2 L/min Dr. Hernando Grimes MD Work Phone: [facility] 09-13-2024 18:26-0400 Body height 170.[address] Hernando Grimes MD Work Phone: [facility] 09-13-2024 18:26-0400 Body mass index (BMI) [Ratio] 36.3 kg/m2 Dr. Hernando Grimes MD Work Phone: [facility] 09-13-2024 18:26-0400 Body weight 105.[address] Hernando Grimes MD Work Phone: [facility] 05-05-2022 15:52-0400 Body height 167.64 cm [facility] Work Phone: Encounters Encounter Date Encounter Type Care Provider Facility Start: 03-18-2025 ambulatory Hernando Grimes Facility:[facility] Start: 03-18-2025 Evaluation and management of inpatient Hernando Grimes Facility:[facility] Start: 03-17-[address] Hernando Grimes MD -[facility] Work Phone: Start: 03-17-2025 ambulatory Hernando Grimes Facility:[facility] Start: 03-10-[address] Hernando Grimes MD -[facility] Work Phone: Start: 03-10-2025 ambulatory Hernando Grimes Facility:[facility] Start: 03-04-2025 Non-patient / Non-visit Dr. Carlene greco MD -[facility] Start: 03-04-2025 End: 03-04-[address] Hernando Grimes MD Work Phone: -Cardiovascular Services Start: 03-04-2025 End: 03-04-[address] Hernando Grimes MD -Cardiovascular Services Work Phone: Start: 03-04-2025 End: 03-04-2025 ambulatory Hernandoleopoldo Grimes Facility:[facility] Start: 02-10-2025 End: 02-10-[address] Hernando Grimes MD Work Phone: -[facility] [place] Start: 02-10-2025 End: 02-10-[address] Hernando Grimes MD -[facility] [place] Work Phone: Start: 02-10-2025 End: 02-10-2025 ambulatory Hernando Grimes Facility:[facility] Start: 10-01-2024 ambulatory [facility] Facility :[facility] Start: 09-18-2024 End: 10-08-2024 Evaluation and management of inpatient Dr. Rodrigo Sanches MD -Transitional Care Unit Start: 09-18-2024 Encounter for other preprocedural examination [facility] Start: 09-18-2024 Non-patient / Non-visit Dr. Mikel piedra [facility] Work Phone: Start: 09-17-2024 Non-patient / Non-visit Dr. Mikel piedra [facility] Work Phone: Start: 09-16-2024 Non-patient / Non-visit Dr. Mikel piedra [facility] Work Phone: Start: 09-15-2024 Non-patient / Non-visit Dr. Emili mora MD -[facility] Work Phone: Start: 09-14-2024 ambulatory [facility] Facility:[facility] Start: 09-14-2024 End: 09-18-2024 Evaluation and management of inpatient Dr. Fahda Cavanaugh MD -[facility] 3 Work Phone: Start: 09-14-2024 Non-patient / Non-visit Dr. Emili mora MD -[facility] Work Phone: Start: 09-13-2024 Non-patient / Non-visit Dr. Cynthia Garcia DO -[facility] Work Phone: Start: 09-13-2024 ambulatory Fahad Cavanaugh Facility: [facility] Start: 09-12-2024 End: 09-12-2024 ambulatory Hernando Grimes Facility:[facility] Start: 09-12-2024 End: 09-12-2024 Non-patient / Non-visit Dr. Tejal Holly MD -[facility] Work Phone: Start: 09-10-2024 End: 09-10-2024 ambulatory [facility] Start: 04-29-2024 End: 04-29-2024 ambulatory Hernando Grimes Facility:[facility] Start: 10-19-2023 End: 10-19-2023 ambulatory [facility] Work Phone: Start: 10-19-2023 End: 10-19-2023 [facility] Start: 10-18-2022 End: 10-18-2022 ambulatory [facility] Work Phone: Start: 10-18-2022 End: 10-18-2022 Patient encounter procedure [facility] Start: 05-05-2022 End: 05-05-2022 ambulatory [facility] Work Phone: Start: 05-05-2022 End: 05-05-2022 Patient encounter procedure [facility]-Outpatient Bone Densitometry Start: 04-20-2022 End: 04-20-2022 ambulatory [facility] Work Phone: Start: 04-20-2022 End: 04-20-2022 Patient encounter procedure [facility]-Laboratory, Specimen Start: 04-19-2022 End: 04-19-2022 ambulatory [facility] Work Phone: Start: 04-19-2022 End: 04-19-2022 Patient encounter procedure [facility]atory, Gerard Will Start: 11-25-2021 End: 11-25-2021 Discharged Recurring [facility]-Physical Therapy Start: 12-18-2006 End: 12-18-2006 Patient encounter procedure Sixto Nelson Work Phone: [facility] Start: 12-18-2006 Results Only Sixto jordan Work Phone: [facility] Procedures Date Procedure Procedure Detail Performing [...] Activity Detail Author Start: 01-26-2026 Colonoscopy COLONOSCOPY [facility] Start: 03-19-2025 Airway suction technique [facility] Start: 03-19-2025 Respiratory therapy [facility] Start: 03-19-2025 Weaning from mechanically assisted ventilation [facility] Start: 03-18-2025 Assessment of risk of venous thromboembolism [facility] Start: 03-18-2025 Catheterization of vein [facility] Start: 03-18-2025 Consultation [facility] Start: 03-18-2025 Continuous pulse oximetry [facility] Start: 03-18-2025 Creatinine [Mass/volume] in Urine collected for unspecified duration [facility] Start: 03-18-2025 Determination of Giang Agitation Sedation Scale (RASS) score with assessment for d [facility] Start: 03-18-2025 Electrolytes measurement, urine [facility] Start: 03-18-2025 Elevation of head of bed [facility] Start: 03-18-2025 Inhalation therapy procedure [facility] Start: 03-18-2025 Insertion of catheter into peripheral vein [facility] Start: 03-18-2025 Measuring intake and output [facility] Start: 03-18-2025 Mouth care [facility] Start: 03-18-2025 Notification of physician [facility] Start: 03-18-2025 Osmolality of Urine [facility] Start: 03-18-2025 Providing care according to standard [facility] Start: 03-18-2025 Referral to service [facility] Start: 03-18-2025 Respiratory pathogens DNA and RNA panel - Respiratory specimen by RANJIT with probe detection [facility] Start: 03-18-2025 Taking nasal swab [facility] Start: 03-18-2025 Tracheostomy care [facility] Start: 03-18-2025 Trial for daily interruption of sedation during mechanically assisted ventilation [facility] Start: 03-18-2025 Urea nitrogen measurement, urine [facility] Start: 03-18-2025 Vital signs measurements [facility] Start: 03-18-2025 [facility] Start: 03-18-2025 Airway suction technique [facility] Start: 03-18-2025 Respiratory therapy [facility] Start: 03-18-2025 Verification routine [facility] Start: 03-18-2025 Admission procedure [facility] Start: 03-18-2025 End: 03-18-2025 [facility] Start: 03-18-2025 Bacteria identified in Blood by Culture Blood Culture [facility] Start: 03-18-2025 Bacteria identified in Urine by Culture Urine Culture [facility] Start: 03-18-2025 Microscopic observation [Identifier] in Unspecified specimen by Gram stain [facility] Start: 03-18-2025 Respiratory Culture Respiratory Culture [facility] Start: 10-08-2024 Patient discharge [facility] Start: 10-07-2024 [facility] Start: 09-30-2024 Referral to service [facility] Start: 09-27-2024 End: 09-27-2024 [facility] Start: 09-27-2024 [facility] Start: 09-24-2024 [facility] Start: 09-19-2024 Development of care plan [facility] Start: 09-19-2024 Developing a treatment plan [facility] Start: 09-19-2024 Following clinical pathway protocol [facility] Start: 09-19-2024 Peripherally inserted central catheter care [facility] Start: 09-18-2024 Consultation [facility] Start: 09-18-2024 Peripherally inserted central catheter care [facility] Start: 09-18-2024 Contact precautions [facility] Start: 09-18-2024 [facility] Start: 09-18-2024 Contact precautions [facility] Start: 09-18-2024 Provision of activity privileges [facility] Start: 09-18-2024 Wound care [facility] Start: 09-18-2024 Admission procedure [facility] Start: 09-18-2024 Introduction of urinary catheter [facility] Start: 09-18-2024 Measuring intake and output [facility] Start: 09-18-2024 Patient referral to dietitian [facility] Start: 09-18-2024 Referral to occupational therapist [facility] Start: 09-18-2024 Referral to service [facility] Start: 09-18-2024 Vital signs measurements [facility] Start: 09-18-2024 End: 09-18-2024 [facility] Start: 09-18-2024 Application of device [facility] Start: 09-18-2024 Patient discharge [facility] Start: 09-18-2024 [facility] Start: 09-16-2024 Consultation [facility] Start: 09-15-2024 Referral to service [facility] Start: 09-14-2024 Oxygen therapy [facility] Start: 09-14-2024 Referral to service [facility] Start: 09-14-2024 Admission procedure [facility] Start: 09-14-2024 Inhalation therapy procedure [facility] Start: 09-13-2024 Application of intermittent pneumatic compression device [facility] Start: 09-13-2024 Following clinical pathway protocol [facility] Start: 09-13-2024 Recommendation to continue with treatment [facility] Start: 09-13-2024 Ambulation therapy management [facility] Start: 09-13-2024 Application of device [facility] Start: 09-13-2024 Assessment of risk of venous thromboembolism [facility] Start: 09-13-2024 Catheterization of vein [facility] Start: 09-13-2024 Following clinical pathway protocol [facility] Start: 09-13-2024 Introduction of urinary catheter [facility] Start: 09-13-2024 Measuring intake and output [facility] Start: 09-13-2024 Neurovascular assessment [facility] Start: 09-13-2024 Patient education [facility] Start: 09-13-2024 Procedure discontinued [facility] Start: 09-13-2024 Provision of activity privileges [facility] Start: 09-13-2024 Referral to occupational therapist [facility] Start: 09-13-2024 Vital signs measurements [facility] Start: 09-13-2024 Wound care [facility] Start: 09-13-2024 [facility] Start: 09-13-2024 Admission procedure [facility] Start: 09-13-2024 Consultation [facility] Start: 09-13-2024 [facility] Start: 09-13-2024 Acid Fast Bacilli Culture Acid Fast Bacilli Culture [facility] Start: 09-13-2024 Acid Fast Bacilli Smear Acid Fast Bacilli Smear [facility] Start: 09-13-2024 Blood culture Blood Culture [facility] Start: 09-13-2024 Fungal Culture Fungal Culture [facility] Start: 09-13-2024 Fungal Smear Fungal Smear [facility] Start: 09-13-2024 Acid fast bacilli culture [facility] Start: 09-13-2024 Medication education [facility] Start: 09-13-2024 Mycology culture [facility] Start: 09-11-2024 Acid Fast Bacilli Culture Acid Fast Bacilli Culture [facility] Start: 09-11-2024 Acid Fast Bacilli Smear Acid Fast Bacilli Smear [facility] Start: 09-11-2024 Fungal Culture Fungal Culture [facility] Start: 09-11-2024 Acid fast bacilli culture [facility] Start: 03-03-2020 Influenza vaccination INFLUENZA (#1) [facility] Start: 2014 ADVANCE DIRECTIVE DISCUSSION ADVANCE DIRECTIVE DISCUSSION [facility] Start: 2014 BONE DENSITY BONE DENSITY [facility] Start: 2014 PNEUMOVAX AGE 65 AND OVER WITH 5YR LOOKBACK (#1) PNEUMOVAX AGE 65 AND OVER WITH 5YR LOOKBACK (#1) [facility] Start: 09-17-2009 LIPID SCREEN LIPID SCREEN [facility] Start: 08-25-2009 DIABETES SCREEN DIABETES SCREEN [facility] Start: 04-11-2007 Mammography MAMMOGRAM [facility] Start: 1999 SHINGRIX VACCINE (1 of 2) SHINGRIX VACCINE (1 of 2) [facility] Start: 01-10-1968 Urine microalbumin profile DTAP,TDAP,TD (1 - Tdap) [facility] Start: 1967 ANNUAL PCP TEAM CHRONIC DISEASE VISIT ANNUAL PCP TEAM CHRONIC DISEASE VISIT [facility] Start: 1967 BP CONTROLLED (<130/80) BP CONTROLLED (<130/80) [facility] Start: 1967 HEPATITIS C SCREENING HEPATITIS C SCREENING [facility] Acid fast bacilli culture [facility] Alanine aminotransfe rase [Enzymatic activity/volume] in Serum or Plasma [facility] Albumin [Mass/volume ] in Serum or Plasma [facility] Alkaline phosphatase [Enzymatic activity/volume] in Serum or Plasma [facility] Anion gap in Serum o r Plasma [facility] Bacteria identified in Sputum by Respiratory culture [facility] Bilirubin, total measurement [facility] BUN/Creatinine ratio [facility] Calcium [Mass/volume ] in Serum or Plasma [facility] Carbon dioxide, tota l [Moles/volume] in Central venous blood [facility] Creatinine [Mass/vol ume] in Serum or Plasma [facility] Erythrocyte mean corpuscular volume determination [facility] Erythrocyte sediment ation rate [facility] Fungus identified in Unspecified specimen by Culture [facility] Fungus identified in Unspecified specimen by Fungus stain [facility] Glucose [Mass/volume ] in Serum or Plasma [facility] Hematocrit [Volume Fraction] of Blood [facility] Hemoglobin [Mass/vol ume] in Blood [facility] Leukocytes [#/volume ] in Blood [facility] Mean corpuscular hem oglobin concentration determination [facility] Mean corpuscular hem oglobin determination [facility] Measurement of renal function [facility] Mycobacterium sp geoff ntified in Unspecified specimen by Organism specific culture [facility] Natriuretic peptide. B prohormone N-Terminal [Mass/volume] in Serum or Plasma [facility] Neutrophil count [facility] Neutrophil percent differential count [facility] Patient Education PICC PICC [facility] D[facility] Dc Caring for Your PICC Dc PICC Line Flushing Home [facility] Flushing Your PICC Line at Home ED PICC Line Care [facility] Work Phone: Patient referral [facility] Work Phone: Platelets [#/volume] in Blood [facility] Potassium measurement [facility] Red blood cell count [facility] Red cell distributio n width determination [facility] Serum chloride measurement [facility] Sodium measurement [facility] Total protein measurement [facility] Urea nitrogen [Mass/ volume] in Serum or Plasma [facility] Urine culture [facility] Immunizations Immunization Date Immunization Notes Care Provider Ita tripp 04-16-2020 Influenza virus vaccine [facility] 04-26-2017 influenza, injectabl e, quadrivalent, preservative free [facility] 04-26-2017 influenza, seasonal, injectable [facility] Payers Date Payer Category Payer Unknown [id number] 2024 Medicaid [id number] 2024 Private Health Insurance [id number] 2024 Self-pay [id number] 1950 Unknown [id number] 51 1950 Unknown [id number] 27 Medicaid [id number] Medicare [id number] Unknown [id number] Unknown [id number] Unknown [facility] MEDIC[facility] HMO [id number] Unknown [id number] [id number] 62 Unknown [id number] 2.16840.1.863517.3.579.2.4 62 Unknown [id number] 2.16840.1.478940.3.579.2.4 62 Unknown [id number] 2.16.840.1.441791.3.579.2.4 62 Unknown [id number] 2.16.840.1.742233.3.579.2.4 62 Unknown [id number] 2.16.840.1.073058.3.579.2.4 62 Unknown [id number] 2.16.840.1.669274.3.579.2.4 62 Unknown [id number] 2.16.840.1.127409.3.579.2.4 62 Unknown [id number] 2.16.840.1.786599.3.579.2.4 62 Unknown [id number] 2.16.840.1.319576.3.579.2.4 62 Unknown [id number] 2.16.840.1.848955.3.579.2.4 62 Unknown [id number] 2.16.840.1.627354.3.579.2.4 62 Unknown [id number] 2.16.840.1.818508.3.579.2.4 62 Unknown [id number] 2.16.840.1.109050.3.579.2.4 62 Unknown [id number] 2.16.840.1.302782.3.579.2.4 62 Unknown [id number] 2.16.840.1.338883.3.579.2.4 62 Unknown [id number] 2.16.840.1.905623.3.579.2.4 62 Social History Date Type Detail Facility Start: 06-12-2006 End: 03-18-2025 Tobacco smoking status MNIS Former smoker [facility] Start: 06-12-2006 Alcohol intake Current non-dr brim ironer hand of alcohol (finding) [facility] Sex Assigned At Not on file [facility] Start: 06-11-2020 End: 06-11-2020 Tobacco smoking status MNIS Unknown if ever smoked [facility] Start: 06-11-2020 Non-smoker [facility] Start: 1950 Sex Assigned At Female [facility] Start: 09-18-2024 End: 10-08-2024 Sex Female (finding) [facility] NEGATED: Highlighted row Not [facility] Medical Equipment Procedure Code Equipment Code Equipment [...] Ambulates;Up a d shanna;Bathroom Privilege;Back to bed [facility] Work Phone: 09-18-2024 Functional status Ambulates;Ricky r;Bathroom Privilege [facility] Work Phone: 09-17-2024 Functional status Tolerates Activity Well [facility] Work Phone: Mental Status Date Assessment Result Facility 10-08-2024 Cognitive function Voice/Name [facility] Work Phone: 10-05-2024 Cognitive function Appropriate;Cooperatiseble dowling [facility] Work Phone: 09-18-2024 Cognitive function Voice/Name [facility] Work Phone: Clinical Notes 09-13-2024 to 03-18-2025 Note Date & Type Note Facility 03-18-2025 History and physi ronen note [facility] 03-18-2025 Radiology Diagnostic study note [facility] Imaging Services [address] [place], [place] [address] CTA Abd/Pelvis W/WO Contrast MR#: [id number] Acct: [id number] Name: OSCAR WOO Rep #: [id number] : 1950 F 75 From: Kamran Leonard MD PCP: Dr. Hernando Grimes MD Status: ADM IN Study:CTA Abd/Pelvis W/WO Contrast Date of Ex am: 03/18/25 Exam# [id number] Ordering Dr: Mai Levy MD PROCEDURE: CTA [...] 12 months to assess stability. Reading Location: [facility] CC: Dr. Hernando Grimes MD; Dr. Deion Levy MD ~ Credit Representative: Signed [facility] 03-18-2025 Radiology Diagnostic study note [facility] Imaging Services [address] [place] [address] [id number] Chest 1 View (Portable) MR#: [id number] Acct: [id number] Name: OSCAR WOO Rep #: [id number] : 1950 F 75 From: Kamran Leonard MD PCP: Dr. Hernando Grimes MD Status: ADM IN Study:Chest 1 View (Portable) Date of Exam: 03/18/25 Exam# [id number] Ordering Dr: Mai Levy MD PROCEDURE: CHEST [...] Unchanged lung aeration. Stable cardiomegaly. Reading Location: [facility] CC: Dr. Hernando Grimes MD; Dr. Deion Levy MD ~ Credit Representative: Signed [facility] 03-18-2025 Radiology Diagnostic study note [facility] Imaging Services [address] [place], [place] [id number] Chest 1 View (Portable) MR#: [id number] Acct: [id number] Name: OSCAR WOO Rep #: [id number] : 1950 F 75 From: Kamran Leonard MD PCP: Dr. Hernando Grimes MD Status: [facility] ER Study:Chest 1 View (Portable) Date of Exam: 03/18/25 Exam# [id number] Ordering Dr: Mai Levy MD PROCEDURE: CHEST [...] markings and possible interstitial edema. Reading Location: [facility] CC: Dr. Hernando Grimes MD; Dr. Deion Levy MD ~ Credit Representative: Signed [facility] 03-18-2025 Radiology Diagnostic study note [facility] Imaging Services [address] [place], [place] [id number] Abdomen Single View (Portable) MR#: [id number] Acct: [id number] Name: OSCAR WOO Rep #: [id number] : 1950 F 75 From: Kamran Leonard MD PCP: Dr. Hernando Grimes MD Status: [facility] ER Study:Abdomen Single View (Portable) Date of Exam: 03/18/25 Exam# [id number] Ordering Dr: Mai Levy MD PROCEDURE: ABDOMEN [...] renal disease with delayed excretion. Reading Location: [facility] CC: Dr. Hernando Grimes MD; Dr. Deion Levy MD ~ Credit Representative: Signed [facility] 03-18-2025 Radiology Diagnostic study note [facility] Imaging Services [address] [place], [place] [address] Chest PA and Lateral MR#: [id number] Acct: [id number] Name: OSCAR WOO Rep #: [id number] : 1950 F 75 From: Janelle Mares MD PCP: Dr. Hernando Grimes MD Status: REG ER Study:Chest PA and Lateral Date of Exam: 03/18/25 Exam# [id number] Ordering Dr: Mai Levy MD PROCEDURE: CHEST [...] volumes. No acute cardiopulmonary abnormality. Reading Location: [id number] CC: Dr. Hernando Grimes MD; Dr. Deion Levy MD ~ Credit Representative: Signed [facility] 03-18-2025 Radiology Diagnostic study note [facility] Imaging Services [address] [place] [address] 533991 Brain/Head without Contrast MR#: [id number] Acct: [id number] Name: OSCAR WOO Rep #: [id number] : 1950 F 75 From: Jennifer Shin MD PCP: Dr. Hernando Grimes MD Status: REG ER Study:Brain/Head without Contrast Date of Exa m: 03/18/25 Exam# [id number] Ordering Dr: Mai Levy MD PROCEDURE: BRAIN/HEAD [...] IMPRESSION: No acute intracranial process. Reading Location: [facility] CC: Dr. Hernando Grimes MD; Dr. Deion Levy MD ~ Credit Representative: Signed [facility] 02-10-2025 Radiology Diagnostic study note [facility] Imaging Services [address] [place] [address] Chest PA and Lateral MR#: [id number] Acct: [id number] Name: OSCAR WOO Rep #: [id number] : 1950 F 75 From: Kaushal Orozco DO PCP: Dr. Hernando Grimes MD Status: REG CLI Study:Chest PA and Lateral Date of Exam: 02/10/25 Exam# [id number] Ordering Dr: Blas Grimes MD PROCEDURE: CHEST [...] compared to the prior exam. Reading Location: [id number] CC: Dr. Hernando Grimes MD ~ Credit Representative: Signed [facility] 10-08-2024 Hospital Discharge instructions Additional Instructions Discharge home 10/08/2024, [facility]/25/2024[facility] Work Phone: 10-07-2024 Progress note Note Date/Time October 07, 2024 7:[address] [facility] Medical Records Department [address] [place] [address] Progress Note - Infect Disease 10/07/241920 MR#: [id number] Acct: [id number] Name: OSCAR WOO Rep #:[id number] : 1950 74 From: Sixto calhoun MD PCP: Dr. Hernando Grimes MD Status:ADM IN [facility] Physical Exam Narrative New bilat eye redness [...] Cosigner Signature (if applicable): CC: ~ Signed [facility] Work Phone: 1(325) 422-581304-07-[address] [facility] Medical Records Department [address] [place] [address] Progress Note - Infect Disease 10/07/241920 MR#: [id number] Acct: [id number] Name: OSCAR WOO Rep #:[id number] : 1950 74 From: Sixto calhoun MD PCP: Dr. Hernando Grimes MD Status:ADM IN Location: [facility]12-01 Physical Exam Narrative New bilat eye redness [...] Cosigner Signature (if applicable): CC: ~ Signed [facility]04-07-2025 Consult note Author Ashley Sue [facility] Note Date/Time October 07, 2024 2:[address] [facility] Medical Records Department [address] [place] [address] Pharmacokinetic/Renal -Consult 09/29/24 1013 MR#: [id number] Acct: [id number] Name: OSCAR WOO Rep #:[id number] : 1950 74 From: Ashley Sue PCP: Dr. Hernando Grimes MD Status:ADM IN Y Location: [facility]12-01 Consult Antibiotic Management Pharmacy has been consulted [...] Date Sixto Andrade MD CC: ~ Signed [facility] Work Phone: 1(303) 262-526804-07-2025 Consult note Author Tino Law [facility] Note Date/Time October 07, 2024 2:[address] [facility] Medical Records Department [address] [place] [address] Pharmacokinetic/Renal -Consult 10/01/24912 MR#: [id number] Acct: [id number] Name: OSCAR WOO Rep #:[id number] : 1950 74 From: Tino Law PCP: Dr. Hernando Grimes MD Status:ADM IN Location: [place] [address] Consult Antibiotic Management Pharmacy has been consulted [...] __ Sixto Andrade MD CC: ~ Signed [facility] Work Phone: 1(570) 762-945404-07-[address] [facility] Medical Records Department [address] [facility] [place] [address] Pharmacokinetic/Renal -Consult 09/29/24 1013 MR#: [id number] Acct: [id number] Name: OSCAR WOO Rep #:[id number] : 1950 74 From: Ashley Sue PCP: Dr. Hernando Grimes MD Status:ADM IN Location: [facility] TCU06- Consult Antibiotic Management Pharmacy has [...] Date Sixto Andrade MD CC: ~ Signed [facility]04-07-[address] [facility] Medical Records Department [address] [place] [address] Pharmacokinetic/Renal -Consult 10/01/24912 MR#: [id number] Acct: [id number] Name: OSCAR WOO Rep #:[id number] : 1950 74 From: Tino Law PCP: Dr. Hernando Grimes MD Status:ADM IN Y Location: [place] [address] Consult Antibiotic Management Pharmacy has been consulted [...] __ Sixto Andrade MD CC: ~ Signed [facility]04-06-2025 Consult note Author Jonh Khalil [facility] Note Date/Time October 06, 2024 12:[address] [facility] Medical Records Department [address] [place] [address] Pharmacokinetic/Renal -Consult 10/06/24 0956 MR#: [id number] Acct: [id number] Name: OSCAR WOO Rep #:[id number] : 1950 74 From: Jonh kurtz PCP: Dr. Hernando Grimes MD Status:ADM IN Location: [place] [address] Consult Antibiotic Management Pharmacy has been consulted [...] Date Rodrigo Sanches MD CC: ~ Signed [facility] Work Phone: 1([phone]) 432-262704-06-[address] [facility] Medical Records Department [address] [place] [address] Pharmacokinetic/Renal -Consult 10/06/24 0956 MR#: [id number] Acct: [id number] Name: OSCAR WOO Rep #:[id number] : 1950 74 From: Jonh kurtz PCP: Dr. Hernando Grimes MD Status:ADM IN Location: [place] [address] Consult Antibiotic Management Pharmacy has been consulted [...] Date Rodrigo Sanches MD CC: ~ Signed [facility]04-01-2025 Discharge summary Author Rodrigo Myron [facility] Note Date/Time October 01, 2024 8:03 pm [facility] Medical Records Department [address] [place] [address] Discharge Summary 10/01/241955 MR#: [id number] Acct: [id number] Name: OSCAR WOO Rep #:[id number] : 1950 74 From: Rodrigo Sanches MD PCP: Dr. Hernando Grimes MD Status:ADM IN Location: TCU [place] [address] Providers Date of Admission: 09/18/24 Primary Care Physician: Dr. Hernnado Grimes MD Consultations 09/18/24 20:57 Consult: Infectious [...] 30mg daily, Mirtazapine 15mg qhs, stable chronic oysterman use, GDR not recommended. * Dry eyes [...] Discharge home 10/08/2024, IV ATB thru 10/25/2024, [facility] PT/SN. Physical Exam Const alert General [...] Discharge home 10/08/2024, IV ATB thru 10/25/2024, [facility] PT/SN. Please Follow Up With: Fahad [...] Discharge home 10/08/2024, IV ATB thru 10/25/2024, [facility] PT/SN. Discharge Orders/Prescriptions Prescriptions: Continued losartan [...] cbc, vanc trough, and esr. Fax to [phone]. Routine picc care per protocol. rifampin 300 [...] Grimes MD; Dr. Rodrigo Sanches MD~ Signed [facility] Work Phone: 1(238) 209-275804-01-2025 Discharge summary [facility] Medical Records Department [address] [place] [address] Discharge Summary 10/01/241955 MR#: [id number] Acct: [id number] Name: OSCAR WOO Rep #:[id number] : 1950 74 From: Rodrigo Sanches MD PCP: Dr. Hernando Grimes MD Status:ADM IN Location: [facility] TCU06-1 Providers Date of Admission: 09/18/24 [...] 30mg daily, Mirtazapine 15mg qhs, stable chronic alf use, GDR not recommended. * Dry eyes [...] Discharge home 10/08/2024, IV ATB thru 10/25/2024, [facility] PT/SN. Physical Exam Const alert General [...] Discharge home 10/08/2024, IV ATB thru 10/25/2024, [facility] PT/SN. Please Follow Up With: Fahad [...] home 10/08/2024, IV ATB thru 10/25/2024, Miguel [facility] PT/SN. Discharge Orders/Prescriptions Prescriptions: Continued losartan 50 [...] cbc, vanc trough, and esr. Fax to [phone]. Routine picc care per protocol. rifampin 300 [...] Grimes MD; Dr. Rodrigo Sanches MD~ Signed [facility]04-01-2025 [facility] Medical Records Department [address] [place] [address] Discharge Summary 10/01/241955 MR#: [id number] Acct: [id number] Name: OSCAR WOO Rep #: [id number] : 1950 74 From: Rodrigo Sanches MD PCP: Dr. Hernando Grimes MD Status:ADM IN Location: [facility] TCU06-1 Providers Date of Admission: 09/18/24 [...] 30mg daily, Mirtazapine 15mg qhs, stable chronic oysterman use, GDR not recommended. * Dry eyes [...] Discharge home 10/08/2024, IV ATB thru 10/25/2024, [facility] PT/SN. Physical Exam Const alert General Appearance: cooperative HEENT normocephalic Eyes PERRL and EOMs intact bilaterally Neck supple, no JVD and no carotid bruits Resp n (more content not included)...[facility]03-28-2025 Consult note Author Tino Law [facility] Note Date/Time September 27, 2024 9:[address] [facility] Medical Records Department [address] [place] [address] Pharmacokinetic/Renal -Consult 09/24/24 0947 MR#: [id number] Acct: [id number] Name: OSCAR WOO Rep #:[id number] : 1950 74 From: Tino Law PCP: Dr. Hernando Grimes MD Status:ADM IN Y Location: [place] [address] Consult Antibiotic Management Pharmacy has been consulted [...] Date Sixto Andrade MD CC: ~ Signed [facility] Work Phone: 1(603) 372-854103-28-[address] [facility] Medical Records Department [address] [place] [address] Pharmacokinetic/Renal -Consult 09/24/24 0947 MR#: [id number] Acct: [id number] Name: OSCAR WOO Rep #:[id number] : 1950 74 From: Tino Law PCP: Dr. Hernando Grimes MD Status:ADM IN [facility] Consult Antibiotic Management Pharmacy has been consulted [...] Date Sixto Andrade MD CC: ~ Signed [facility]03-23-2025 Consult note Author Shabnam Zarate [facility] Note Date/Time September 22, 2024 11: 33am [facility] Medical Records Department [address] [place] [address] Pharmacokinetic/Renal -Consult 09/22/24 1047 MR#: [id number] Acct: [id number] Name: OSCAR WOO Rep #:[id number] : 1950 74 From: Shabnam Zarate PCP: Dr. Hernando Grimes MD Status:ADM IN Location: [place] [address] Consult Antibiotic Management Pharmacy has been consulted [...] Date Rodrigo Sanches MD CC: ~ Signed [facility] Work Phone: 1(997) 309-993603-23-[address] [facility] Medical Records Department [address] [place] [address] Pharmacokinetic/Renal -Consult 09/22/24 1047 MR#: [id number] Acct: [id number] Name: OSCAR WOO Rep #:[id number] : 1950 74 From: Shabnam Zarate PCP: Dr. Hernando Grimes MD Status:ADM IN Location: [place] [address] Consult Antibiotic Management Pharmacy has been consulted [...] Date Rodrigo Sanches MD CC: ~ Signed [facility]03-21-2025 Progress note Author Shabnam Zarate [facility] Note Date/Time September 20, 2024 1:4 3pm [facility] Medical Records Department [address] [place] [address] Progress Note - Pharmacy 09/19/24 1427 MR#: [id number] Acct: [id number] Name: OSCAR WOO Rep #:[id number] : 1950 74 From: Shabnam Zarate PCP: Dr. Hernando Grimes MD Status:ADM IN Location: [place] [address] TCU RX Drug Regimen Review Subjective/Objective Subjective/Objective Subjective: 74 YOF admitted to TCU on 09/18/24 s/p hospitalization to [facility] for a left shoulder joint infection. The [...] Signature (if applicable): Date cc: ~* Signed [facility] Work Phone: 1(385) 199-878303-21-2025 Progress note Author Sixto Andrade [facility] Note Date/Time September 20, 2024 1:3 8pm [facility] Medical Records Department [address] [place] [address] Progress Note - Infect Disease 09/20/24 1336 MR#: [id number] Acct: [id number] Name: OSCAR WOO Rep #:[id number] : 1950 74 From: Sixto calhoun MD PCP: Dr. Hernando Grimes MD Status:ADM IN Location: [facility]12-01 Physical Exam Narrative Feeling better, shoulder improving, [...] Cosigner Signature (if applicable): CC: ~ Signed [facility] Work Phone: 1(910) 427-190203-21-2025 Consult note Author Jonh Khalil [facility] Note Date/Time September 20, 2024 1:[address] [facility] Medical Records Department [address] [place] [address] Pharmacokinetic/Renal -Consult 09/20/24 0902 MR#: [id number] Acct: [id number] Name: OSCAR WOO Rep #:[id number] : 1950 74 From: Jonh kurtz PCP: Dr. Hernando Grimes MD Status:ADM IN Y Location: [facility]12-01 Consult Antibiotic Management Pharmacy has been consulted [...] Date Rodrigo Sanches MD CC: ~ Signed [facility] Work Phone: [phone]) [phone] Progress note [facility] Medical Records Department [address] [place] [address] Progress Note - Pharmacy 09/19/24 1427 MR#: [id number] Acct: [id number] Name: OSCAR WOO Rep #:[id number] : 1950 74 From: Shabnam Zarate PCP: Dr. Hernando Grimes MD Status:ADM IN Location: TCU [place] [address] TCU RX Drug Regimen Review Subjective/Objective Subjective/Objective Subjective: 74 YOF admitted to TCU on 09/18/24 s/p hospitalization to [facility] for a left shoulder joint infection. The [...] Vancomycin Trough/Random Due [facility] 09/20/24 09:30 DAILY [facility] Problem List Infection of prosthetic shoulder joint [...] Signature (if applicable): Date cc: ~* Signed [facility]03-21-2025 Progress note [facility] Medical Records Department [address] [place] [address] Progress Note - Infect Disease 09/20/24 1336 MR#: [id number] Acct: [id number] Name: OSCAR WOO Rep #:[id number] : 1950 74 From: Sixto calhoun MD PCP: Dr. Hernando Grimes MD Status:ADM IN Location: [address] Physical Exam Narrative Feeling better, shoulder [...] Cosigner Signature (if applicable): CC: ~ Signed [facility]03-21-[address] [facility] Medical Records Department [address] [place] [address] Pharmacokinetic/Renal -Consult 09/20/24 0902 MR#: [id number] Acct: [id number] Name: OSCAR WOO Rep #:[id number] : 1950 74 From: Jonh kurtz PCP: Dr. Hernando Grimes MD Status:ADM IN Y Location: [place] [address] Consult Antibiotic Management Pharmacy has been consulted [...] result of 10.7 so will increase dose [id number] IV q24h. Will check another trough before the 3rd dose. Pharmacy Service will continue to monitor and adjust dosing as required. Follow-Up Labs Follow-Up Labs: Trough: Vancomycin Date/Time Labs Ordered Labs to be done on [date and time ordered]: 09/22/24 08:30 09/20/24 0905 erg> Date _ Jonh Khalil 09/20/24 1326 D> Cosigner Signature (if applicable): Date Rodrigo Sanches MD CC: ~ Signed [facility]03-20-2025 Progress note Author Sixto Andrade [facility] Note Date/Time September 19, 2024 7:[address] [facility] Medical Records Department [address] [place] [address] Progress Note - Infect Disease 09/19/24756 MR#: [id number] Acct: [id number] Name: OSCAR WOO Rep #:[id number] : 1950 74 From: Sixto calhoun MD PCP: Dr. Hernando Grimes MD Status:ADM IN Location: [place] [address] ID ID: Route of nutrition/ use of [...] Cosigner Signature (if applicable): CC: ~ Signed [facility] Work Phone: 1(242) 577-706003-20-[address] [facility] Medical Records Department [address] [place] [address] Progress Note - Infect Disease 09/19/24756 MR#: [id number] Acct: [id number] Name: OSCAR WOO Rep #:[id number] : 1950 74 From: Sixto calhoun MD PCP: Dr. Hernando Grimes MD Status:ADM IN Location: [place] [address] ID ID: Route of nutrition/ use of [...] at U, reviewed labs and chart. 09/19/24 8916 Cosigner Signature (if applicable): CC: ~ Signed [facility]03-19-2025 History and physical note Author Rodrigo Sanches [facility] Note Date/Time September 18, 2024 8:5 7pm [facility] Medical Records Department [address] [place] [address] History & Physical Exam 09/18/242035 MR#: [id number] Acct: [id number] Name: OSCAR WOO Rep #:[id number] : 1950 74 From: Rodrigo Sanches MD PCP: Dr. Hernando Grimes MD Status:ADM IN Location: [place] [address] HPI - General General Date of Admission: [...] intravenous antibiotics, prior to discharge home alone. [facility] Medical History MRSA (methicillin resistant staph aureus) [...] oral 80 mg (1.2 mL) PO TID MS N Gas #0 mL 09/17/24 Unknown Rx [...] 30mg daily, Mirtazapine 15mg qhs, stable chronic alf use, GDR not recommended. * Dry eyes [...] Grimes MD; Dr. Rodrigo Sanches MD~ Signed [facility] Work Phone: 1(408) 571-882703-19-2025 History and physical note [facility] Medical Records Department [address] [place] [address] History & Physical Exam 09/18/242035 MR#: [id number] Acct: [id number] Name: OSCAR WOO Rep #:[id number] : 1950 74 From: Rodrigo Sanches MD PCP: Dr. Hernando Grimes MD Status:ADM IN Location: [facility] TCU06-1 HPI - General General Date [...] intravenous antibiotics, prior to discharge home alone. [facility] Medical History MRSA (methicillin resistant staph aureus) [...] oral 80 mg (1.2 mL) PO TID MS N Gas #0 mL 09/17/24 Unknown Rx [...] 30mg daily, Mirtazapine 15mg qhs, stable chronic alf use, GDR not recommended. * Dry eyes [...] Grimes MD; Dr. Rodrigo Sanches MD~ Signed [facility]03-19-2025 [facility] Medical Records Department [address] [place] [address] History Physical Exam 09/18/242035 MR#: [id number] Acct: [id number] Name: OSCAR WOO Rep #: [id number] : 1950 74 From: Rodrigo Sanches MD PCP: Dr. Hernando Grimes MD Status:ADM IN Location: TCU [facility]06-1 HPI - General General Date of [...] intravenous antibiotics, prior to discharge home alone. [facility] Medical History MRSA (methicillin resistant staph aureus) [...] (Updated 09/18/24 @ 20:[address] Rodrigo Sanhces MD) household members: none Smoking Status: Former smoker alcohol intake: never substance use type: does not use ROS Constitutional Constitutional: Reports weakness EN (more content not included)...[facility]03-19-[address] [facility] Medical Records Department [address] [place] [address] Discharge Summary 09/18/24 1255 MR#: [id number] Acct: [id number] Name: OSCAR WOO Rep #: [id number] : 1950 74 From: Zhanna CASTILLO PCP: Dr. Hernando Grimes MD Status:DIS IN Location: [facility] [place] Providers Date of Admission: 09/14/24 Primary Care Physician: Dr. Hernando Grimes MD Consultations 09/13/24 16:15 Consult: Hospitalist Routine Consulting Provider: [facility] Reason for Consult: post op med management [...] will be going to the TCU at [facility]. Patient received acceptance yesterday but a bed [...] mg tablet 10 mg (more content not included)...[facility]03-19-[address] [facility] Medical Records Department [address] [place] [address] Counseling Note - Pharmacy 09/18/24 1009 MR#: [id number] Acct: [id number] Name: OSCAR WOO Rep #:[id number] : 1950 74 From: Ashley Sue PCP: Dr. Hernando Grimes MD Status:ADM IN Location: [facility] JL355-8 Pharmacy [place] Med Reconciliation Pharmacy Service has performed discharge [...] #0 mL 09/17/24 09/18/24 1009 Date _ Ashlye Herndon Signature (if applicable): CC: ~ Signed [facility]03-19-2025 Consult note Author Ashley Sue [facility] Note Date/Time September 18, 2024 12: 30pm [facility] Medical Records Department [address] [place] [address] Counseling Note - Pharmacy 09/18/24 1009 MR#: [id number] Acct: [id number] Name: OSCAR WOO Rep #:[id number] : 1950 74 From: Ashley Sue PCP: Dr. Hernando Grimes MD Status:ADM [facility] Med Reconciliation Pharmacy Service has performed discharge [...] Signature (if applicable): Date CC: ~ Signed [facility] Work Phone: 1(184) 301-357703-19-2025 Progress note Author Jamie Jiang [facility] Note Date/Time September 18, 2024 9:1 1am [facility] Medical Records Department [address] [place] [address] Progress Note - Hospitalist 09/18/24907 MR#: [id number] Acct: [id number] Name: OSCAR WOO Rep #:[id number] : 1950 74 From: Jamie Jiang DO PCP: Dr. Hernando Grimes MD Status:ADM IN Location: [facility] LG326-5 Reason for Visit Reason for Visit: Diagnoses [...] 50 minutes Charges/Coding Visit Charges Inpatient E&M: 18857 Subs Hosp L3 09/18/24 0911 <Electronically signed by Jamie Jiang DO> Cosigner Signature (if applicable): CC: ~ Signed [facility] Work Phone: 1(593) 948-655203-19-2025 Progress note Author Zhanna Ivy [facility] Note Date/Time September 18, 2024 7:5 5am [facility] Medical Records Department [address] [place] [address] Progress Note - Orthopedic 09/18/24 0748 MR#: [id number] Acct: [id number] Name: OSCAR WOO Rep #:[id number] : 1950 74 From: Zhanna CASTILLO PCP: Dr. Hernando Grimes MD Status:ADM IN Location: [place]3 NI225-6 Subjective Subjective Patient was lying comfortably in bed. Patient was very excited that she got accepted to [facility] and patient was eager [...] will be going to the TCU at [facility]. Patient received acceptance yesterday but a bed [...] other internal joint prosthesis, initial encounter: 09/18/24 4423 <Electronically signed by Zhanna CASTILLO> Cosigner Signature (if applicable): CC: ~ Signed [facility] Work Phone: 1(400) 428-538503-19-2025 Consult note Author Tete Dicato Kaminski [facility] Note Date/Time September 18, 2024 7:[address] [facility] Medical Records Department [address] [place] [address] Pharmacokinetic/Renal -Consult 09/18/2444 MR#: [id number] Acct: [id number] Name: OSCAR WOO Rep #:[id number] : 1950 74 From: Tete Loving PCP: Dr. Hernando Grimes MD Status:ADM IN Location: [place] [address]13-1 Consult Antibiotic Management Pharmacy has been consulted [...] and time ordered]: 09/20/24 @ 0700 09/18/24 1447 <Electronically signed by Tete Kaminski> Date _ Tete Luqueigner Signature (if applicable): Date CC: ~ Signed [facility] Work Phone: 1(574) 220-166503-19-[address] [facility] Medical Records Department [address] [place] [address] Progress Note - Hospitalist 09/18/24 0908 MR#: [id number] Acct: [id number] Name: OSCAR WOO Rep #:[id number] : 1950 74 From: Jamie Jiang DO PCP: Dr. Hernando Grimes MD Status:ADM IN Location: [place] [address]-1 Reason for Visit Reason for Visit: Diagnoses [...] [facility] pressure medicines may need [...] 50 minutes Charges/Coding Visit Charges Inpatient E&M: 61871 Subs Hosp L3 09/18/24 0911 Cosigner Signature (if applicable): CC: ~ Signed [facility]03-19-2025 Progress note [facility] Medical Records Department [address] [facility] [place] [address] Progress Note - Orthopedic 09/18/24 0748 MR#: [id number] Acct: [id number] Name: OSCAR WOO Rep #:[id number] : 1950 74 From: Zhanna CASTILLO PCP: Dr. Hernando Grimes MD Status:ADM IN Location: [facility] RH201-4 Subjective Subjective Patient was lying comfortably in bed. Patient was very excited that she got accepted to [facility] and patient was eager [...] will be going to the TCU at [facility]. Patient received acceptance yesterday but a bed was not available until today 09/18/2024. Appreciate recommendations from medicine and case management for safe discharge planning. Patient will follow-up per postoperative instructions. Reverse total shoulder protocol was reviewed with patient today. Patient has a 2-week follow-up at our office. Patient will begin outpatient physical therapy following her 2-week visit at [facility]. Patient was encouraged to call with any questions, concerns, new problems. (2) Infection and inflammatory reaction due to other internal joint prosthesis, initial encounter: 09/18/24 7668 Cosigner Signature (if applicable): CC: ~ Signed [facility]03-19-[address] [facility] Medical Records Department [address] [place] [address] Pharmacokinetic/Renal -Consult 09/18/24 0744 MR#: [id number] Acct: [id number] Name: OSCAR WOO Rep #:[id number] : 1950 74 From: Tete Loving PCP: Dr. Hernando Grimes MD Status:ADM IN Location: [place] [address] Consult Antibiotic Management Pharmacy has been consulted [...] and time ordered]: 09/20/24 @ 0700 09/18/24 [facility] [place] Date _ Tete Herndon Signature (if applicable): Date CC: ~ Signed [facility]03-18-2025 Discharge summary Author Jamie Jiang [facility] Note Date/Time September 17, 2024 5:2 7pm [facility] Medical Records Department [address] [place] [address] Transfer to [facility] MR#: [id number] Acct: [id number] Name: OSCAR WOO Rep #:[id number] : 1950 74 From: Jamie Jiang DO PCP: Dr. Hernando Grimes MD Status:ADM IN Certification of patient admission REQUIRED AT TIME OF ADMISSION. I CERTIFY THAT POST-HOSPITAL ECF SERVICES ARE REQUIRED TO BE GIVEN ON AN IN-PATIENT BASIS BECAUSE OF THE ABOVE NAMED PATIENT'S NEED FOR RETIREMENT CARE ON A CONTINUING BASIS FOR THE [...] cbc, vanc trough, and esr. Fax to [phone]. Routine picc care per protocol. rifampin 300 [...] in before D/C Order can be placed): [facility] Facility 09/17/24 1727 <Electronically signed by Jamie Jiang DO> Cosigner Signature (if applicable): CC: Dr. Hernando Grimes MD; Dr. Jamie Jiang DO; Dr. Emili Lee MD; Dr. Sixto Andrade MD ~ [facility] Work Phone: 1([phone]) 490-107803-18-2025 Progress note Author Jamie Jiang [facility] Note Date/Time September 17, 2024 5:1 3pm [facility] Medical Records Department [address] [place] [address] Progress Note - Hospitalist 09/17/24 1709 MR#: [id number] Acct: [id number] Name: WOOOSCAR Rep #:[id number] : 1950 74 From: Jamie Jiang DO PCP: Dr. Hernando Grimes MD Status:ADM IN Location: [facility] QT712-1 Reason for Visit Reason for Visit: Diagnoses [...] [facility] Patient had some gas [...] 35 minutes Charges/Coding Visit Charges Inpatient E&M: 83997 Subs Hosp L2 09/17/24 1713 <Electronically signed by Jamie Jiang DO> Cosigner Signature (if applicable): CC: ~ Signed [facility] Work Phone: 1(449) 419-943503-18-2025 Discharge summary [facility] Medical Records Department [address] [place] [address] Transfer to [facility] MR#: [id number] Acct: [id number] Name: OSCAR WOO Rep #:[id number] : 1950 74 From: Jamie Jiang DO PCP: Dr. Hernando Grimes MD Status:ADM IN Certification of patient admission REQUIRED AT TIME OF ADMISSION. I CERTIFY THAT POST-HOSPITAL ECF SERVICES ARE REQUIRED TO BE GIVEN ON AN IN-PATIENT BASIS BECAUSE OF THE ABOVE NAMED PATIENT'S NEED FOR RETIREMENT CARE ON A CONTINUING BASIS FOR THE CONDITION(S) FOR WHICH HE/SHE WAS RECEIVINGIN-PATIENT HOSPITAL SERVICES PRIOR TO HIS/HER TRANSFER [facility]. 09/17/24 1727 Diet Diet Order/Speech Therapy: [...] cbc, vanc trough, and esr. Fax to [phone]. Routine picc care per protocol. rifampin 300 [...] in before D/C Order can be placed): [facility] 09/17/24 1727 Cosigner Signature (if applicable): CC: Dr. Hernando Grimes MD; Dr. Jamie Jiang DO; Dr. Emili Lee MD; Dr. Sixto Andrade MD ~ [facility]03-18-[address] [facility] Medical Records Department [address] [place] [address] Progress Note - Hospitalist 09/17/24 1709 MR#: [id number] Acct: [id number] Name: OSCAR WOO Rep #:[id number] : 1950 74 From: Jamie Jiang DO PCP: Dr. Hernando Grimes MD Status:ADM IN [facility]: [facility] XD001-[facility] Reason for Visit Reason for Visit: Diagnoses [...] bed available for her in [facility] care tomorrow. Patient had some gas [...] 35 minutes Charges/Coding Visit Charges Inpatient E&M: 92456 Subs Hosp L2 09/17/24 1713 Cosigner Signature (if applicable): CC: ~ Signed [facility]03-18-2025 Progress note Author Zhanna Ivy [facility] Note Date/Time September 17, 2024 1:0 2pm [facility] Medical Records Department [address] [place] [address] Progress Note - Orthopedic 09/17/24 1242 MR#: [id number] Acct: [id number] Name: OSCAR WOO Rep #:[id number] : 1950 74 From: Zhanna CASTILLO PCP: Dr. Hernando Grimes MD Status:ADM IN [facility] Subjective Subjective Patient appears to be comfortable [...] Cosigner Signature (if applicable): cc: ~* Signed [facility] Work Phone: 1(690) 348-487703-18-2025 Progress note [facility] Medical Records Department [address] [place] [address] Progress Note - Orthopedic 09/17/24 1242 MR#: [id number] Acct: [id number] Name: OSCAR WOO Rep #:[id number] : 1950 74 From: Zhanna CASTILLO PCP: Dr. Hernando Grimes MD Status:ADM IN Location: [facility] CM780-4 Subjective Subjective Patient appears to be comfortable [...] Cosigner Signature (if applicable): cc: ~* Signed [facility]03-18-2025 Progress note Author Sixto Andrade [facility] Note Date/Time September 17, 2024 10: 04am [facility] Medical Records Department [address] [place] [address] Progress Note - Infect Disease 09/17/24 1003 MR#: [id number] Acct: [id number] Name: VIRIDIANA WOOISIDORO Dowling Rep #:[id number] : 1950 74 From: Sixto calhoun MD PCP: Dr. Hernando Grimes MD Status:ADM IN Location: [facility] SB863-9 Physical Exam Narrative Feeling ok. One episode [...] diarrhea chronically, cdiff sent. Will follow, d/w supervisor case loading 09/17/24 1004 <Electronically signed by Sixto Andrade MD> Cosigner Signature (if applicable): CC: ~ Signed [facility] Work Phone: [phone]) 761-157103-18-2025 Progress note [facility] Medical Records Department [address] [place] [address] Progress Note - Infect Disease 09/17/24 1003 MR#: [id number] Acct: [id number] Name: OSCAR WOO Rep #:[id number] : 1950 74 From: Sixto calhoun MD PCP: Dr. Hernando Grimes MD Status:ADM IN Location: [facility]3 OJ948-5 Physical Exam Narrative Feeling ok. One episode [...] diarrhea chronically, cdiff sent. Will follow, d/w supervisor case loading 09/17/24 1004 Cosigner Signature (if applicable): CC: ~ Signed [facility]03-17-2025 Progress note Author [facility] Tierra [facility] Note Date/Time September 16, 2024 9:[address] [facility] Medical Records Department [address] [place] [address] Progress Note - Hospitalist 09/16/242156 MR#: [id number] Acct: [id number] Name: OSCAR WOO Rep #:[id number] : 1950 74 From: Claire Mayorga MD PCP: Dr. Hernando Grimes MD Status:ADM IN Location: [place] [address] Hospitalist Note Patient with onset diarrhea, several episodes per staff. On abx therapy for several days with ID following. Suspect likely abx related but to be cautious will obtain cdiff and if negative will have loperamide PRN. 09/16/242156 <Electronically signed by Claire Mayorga MD> Cosigner Signature (if applicable): CC: ~ Signed [facility] Work Phone: 1(909) [phone] [facility] Medical Records Department [address] [facility] [place] [address] Progress Note - Hospitalist 09/16/242156 MR#: [id number] Acct: [id number] Name: OSCAR WOO Rep #:[id number] : 1950 74 From: Claire Mayorga MD PCP: Dr. Hernando Grimes MD Status:ADM IN Location: [place] [address] Hospitalist Note Patient with onset diarrhea, several episodes per staff. On abx therapy for several days with ID following. Suspect likely abx related but to be cautious will obtain cdiff and if negative will have loperamide PRN. 09/16/242156 Cosigner Signature (if applicable): CC: ~ Signed [facility]03-17-2025 Progress note Author [facility] Note Date/Time September 16, 2024 4:[address] [facility] Medical Records Department [address] [place] [address] Progress Note - Hospitalist 09/16/24 1603 MR#: [id number] Acct: [id number] Name: OSCAR WOO Rep #:[id number] : 1950 74 From: Jamie Jiang DO PCP: Dr. Hernando Grimes MD Status:ADM IN Location: [place] [address] Reason for Visit Reason for Visit: Diagnoses [...] to go to a rehab facility or residential facility. Objective Data Objective Data Vital Signs: [...] 76.9 H, Lymph % (Auto) 11.6 L, Rusk % (Auto) 7.0, Eos % (Auto) 3.2, [...] 35 minutes Charges/Coding Visit Charges Inpatient E&M: 52194 Subs Hosp L2 09/16/24 1611 <Electronically signed by Jamie Jiang DO> Cosigner Signature (if applicable): CC: ~ Signed [facility] Work Phone: [phone] Consult note Author Sixto [facility] Note Date/Time September 16, 2024 2:5 1pm [facility] Medical Records Department [address] [place] [address] Consultation - Infectious Dx 09/16/24 1444 MR#: [id number] Acct: [id number] Name: OSCAR WOO Rep #:[id number] : 1950 74 From: Sixto calhoun MD PCP: Dr. Hernando Grimes MD Status:ADM IN Location: [facility] PE533-9 Assessment & Plan Assessment/Plan (1) Infection and [...] rx, d/w Dr. Cavanaugh on 09/13/24, d/w supervisor case loading this AM HPI Consult Data Date of [...] performed and neg except as noted above. [facility] Medical History MRSA (methicillin resistant staph aureus) [...] 76.9 H, Lymph % (Auto) 11.6 L, Rusk % (Auto) 7.0, Eos % (Auto) 3.2, [...] Preliminary No growth in 48 hours. 09/16/24 0801 <Electronically signed by Sixto Andrade MD> Cosigner Signature (if applicable): CC: Dr. Hernando Grimes MD; Dr. Fahad Cavanaugh MD~ Signed [facility] Work Phone: [phone] 236-762703-17-[address] [facility] Medical Records Department [address] [place] [address] Progress Note - Hospitalist 09/16/24 1603 MR#: [id number] Acct: [id number] Name: OSCAR WOO Rep #:[id number] : 1950 74 From: Jamie Jiang DO PCP: Dr. Hernando Grimes MD Status:ADM IN Location: [place] 260913-1 Reason for Visit Reason for Visit: Diagnoses [...] to go to a rehab facility or residential facility. Objective Data Objective Data Vital Signs: [...] 76.9 H, Lymph % (Auto) 11.6 L, Rusk % (Auto) 7.0, Eos % (Auto) 3.2, [...] 35 minutes Charges/Coding Visit Charges Inpatient E&M: 65081 Subs Hosp L2 09/16/24 1611 Cosigner Signature (if applicable): CC: ~ Signed [facility]03-17-2025 Progress note Author Fahad Cavanaugh [facility] Note Date/Time September 16, 2024 2:0 5pm [facility] Medical Records Department [address] [place] [address] Progress Note - Orthopedic 09/16/24 1357 MR#: [id number] Acct: [id number] Name: OSCAR WOO Rep #:[id number] : 1950 74 From: Fahad Chi PCP: Dr. Hernando Grimes MD Status:ADM IN Location: [place] [address] Subjective Subjective Patient doing well. Denies any chest pain or calf pain. No new shortness of breath. Remains on 2 L of oxygen. Infectious ease was able to the patient thismorning and placed patient on vancomycin IV for 6 weeks. PICC line is in place. Discharge planning has commenced. Patient will likely require residential upon discharge to help administer IV antibiotics [...] 76.9 H, Lymph % (Auto) 11.6 L, Rusk % (Auto) 7.0, Eos % (Auto) 3.2, [...] attempting to look for placement in a residential facility. Once we have an accepting facilitywill need to obtain pre-CERT. Patient demonstrates an understanding. [facility] Office: 09/16/24 1404 <Electronically signed by Fahad Cavanaugh MD> Cosigner Signature (if applicable): CC: ~ Signed [facility] Work Phone: 1([phone] 204-950203-17-2025 Consult note [facility] Medical Records Department [address] [place] [address] Consultation - Infectious Dx 09/16/24 1444 MR#: [id number] Acct: [id number] Name: OSCAR WOO Rep #:[id number] : 1950 74 From: Sixto calhoun MD PCP: Dr. Hernando Grimes MD Status:ADM IN [facility] Assessment & Plan Assessment/Plan (1) Infection and [...] rx, d/w Dr. Cavanaugh on 09/13/24, d/w supervisor case loading this AM HPI Consult Data Date of [...] performed and neg except as noted above. [facility] Medical History MRSA (methicillin resistant staph aureus) [...] 76.9 H, Lymph % (Auto) 11.6 L, Rusk % (Auto) 7.0, Eos % (Auto) 3.2, [...] Grimes MD; Dr. Fahad Cavanaugh MD~ Signed [facility]03-17-2025 Progress note [facility] Medical Records Department [address] [place] [address] Progress Note - Orthopedic 09/16/24 1357 MR#: [id number] Acct: [id number] Name: OSCAR WOO Rep #:[id number] : 1950 74 From: Fahad Chi PCP: Dr. Hernando Grimes MD Status:ADM IN [facility] Subjective Subjective Patient doing well. Denies any chest pain or calf pain. No new shortness of breath. Remains on 2 L of oxygen. Infectious ease was able to the patient thismorning and placed patient on vancomycin IV for 6 weeks. PICC line is in place. Discharge planning has commenced. Patient will likely require residential upon discharge to help administer IV antibiotics [...] 76.9 H, Lymph % (Auto) 11.6 L, Rusk % (Auto) 7.0, Eos % (Auto) 3.2, [...] attempting to look for placement in a residential facility. Once we have an accepting facilitywill need to obtain pre-CERT. Patient demonstrates an understanding. [facility] Office: 09/16/24 140 Cosigner Signature (if applicable): CC: ~ Signed [facility]03-17-2025 Consult note Author Tino Law [facility] Note Date/Time September 16, 2024 7:[address] [facility] Medical Records Department [address] [place] [address] Pharmacokinetic/Renal -Consult 09/15/24 1424 MR#: [id number] Acct: [id number] Name: OSCAR WOO Rep #:[id number] : 1950 74 From: Tino Law PCP: Dr. Hernando Grimes MD Status:ADM IN Location: [place] [address] Consult Antibiotic Management Pharmacy has been consulted [...] Date Fahad Cavanaugh MD CC: ~ Signed [facility] Work Phone: [phone] Consult note Author Tino Law [facility] Note Date/Time September 16, 2024 7:[address] [facility] Medical Records Department [address] [place] [address] Pharmacokinetic/Renal -Consult 09/16/24 0658 MR#: [id number] Acct: [id number] Name: OSCAR WOO Rep #:[id number] : 1950 74 From: Tino Law PCP: Dr. Hernando Grimes MD Status:ADM IN Location: [place] [address] Consult Antibiotic Management Pharmacy has been consulted [...] Date Fahad Cavanaugh MD CC: ~ Signed [facility] Work Phone: [phone]) 801-302203-17-[address] [facility] Medical Records Department [address] [place] [address] Pharmacokinetic/Renal -Consult 09/15/24 1424 MR#: [id number] Acct: [id number] Name: OSCAR WOO Rep #:[id number] : 1950 74 From: Tino Law PCP: Dr. Hernando Grimes MD Status:ADM IN Location: [place] [address] Consult Antibiotic Management Pharmacy has been consulted [...] Date Fahad Cavanaugh MD CC: ~ Signed [facility]03-17-[address] [facility] Medical Records Department [address] [place] [address] Pharmacokinetic/Renal -Consult 09/16/24 0658 MR#: [id number] Acct: [id number] Name: OSCAR WOO Rep #:[id number] : 1950 74 From: Tino Law PCP: Dr. Hernando Grimes MD Status:ADM IN Y Location: [place] ME479-3 Consult Antibiotic Management Pharmacy has been consulted [...] Date Fahad Cavanaugh MD CC: ~ Signed [facility]03-16-2025 Progress note Author Emili Lee [facility] Note Date/Time September 15, 2024 11: 30am [facility] Medical Records Department [address] [place] [address] Progress Note - Hospitalist 09/15/24 0804 MR#: [id number] Acct: [id number] Name: OSCAR WOO Rep #:[id number] : 1950 74 From: Emili Lee MD PCP: Dr. Hernando Grimes MD Status:ADM IN Location: [place] MO568-8 Reason for Visit Reason for Visit: Diagnoses [...] 36 Minutes Charges/Coding Visit Charges Inpatient E&M: 75228 Subs Hosp L2 09/15/24 1130 <Electronically signed by Emili Lee MD> Cosigner Signature (if applicable): CC: ~ Signed [facility] Work Phone: 1(823) 387-446403-16-[address] [facility] Medical Records Department [address] [place] [address] Progress Note - Hospitalist 09/15/24 0804 MR#: [id number] Acct: [id number] Name: OSCAR WOO Rep #:[id number] : 1950 74 From: Emili Lee MD PCP: Dr. Hernando Grimes MD Status:ADM IN Location: [place] XQ388-0 Reason for Visit Reason for Visit: Diagnoses [...] 36 Minutes Charges/Coding Visit Charges Inpatient E&M: 41908 Subs Hosp L2 09/15/24 1130 Cosigner Signature (if applicable): CC: ~ Signed [facility]03-16-2025 Progress note Author Fahad Cavanaugh [facility] Note Date/Time September 15, 2024 8:1 9am [facility] Medical Records Department [address] [place] [address] Progress Note - Orthopedic 09/15/24 0811 MR#: [id number] Acct: [id number] Name: OSCAR WOO Rep #:[id number] : 1950 74 From: Fahad Chi PCP: Dr. Hernando Grimes MD Status:ADM IN Location: [place] YL551-9 Subjective Subjective Patient doing well overall. No [...] Cosigner Signature (if applicable): CC: ~ Signed [facility] Work Phone: 1([phone]) 824-678903-16-2025 Radiology Diagnostic study note [facility] Imaging Services [address] [place] [place] [id number] Chest PA and Lateral MR#: [id number] Acct: [id number] Name: OSCAR WOO Rep #: [id number] : 1950 F 74 From: Abdulkadir Goodman DO PCP: Dr. Hernando Grimes MD Status: ADM IN Study:Chest PA and Lateral Date of Exam: 09/15/24 Exam# [id number] Ordering Dr: Wenceslao Lee MD PROCEDURE: Chest [...] changes at the lung bases. [facility] CC: Dr. Hernando Grimes MD; Dr. Emili Lee MD ~ Credit Representative: Signed [facility]03-16-2025 Progress note [facility] Medical Records Department [address] [place] [address] Progress Note - Orthopedic 09/15/24 0811 MR#: [id number] Acct: [id number] Name: OSCAR WOO Rep #:[id number] : 1950 74 From: Fahad Chi PCP: Dr. Hernando Grimes MD Status:ADM IN [facility] Subjective Subjective Patient doing well overall. No [...] PICC line and home antibiotic regimen. [facility] Office: 09/15/24818 Cosigner Signature (if applicable): CC: ~ Signed [facility]03-15-2025 Evaluation note* Diagnosis Onset Date [...] 12:40pm Hypertension chronic September 14, 2024 12:40pm [facility] Work Phone: [phone] Evaluation note* Diagnosis Onset Date Resolution Status [...] 18 12:40pm Insomnia inactive September 18 12:40pm [facility] Work Phone: 1(499) 987-990603-15-2025 Progress note Author Emili Lee [facility] Note Date/Time September 14, 2024 12: 34pm [facility] Medical Records Department [address] [place] [address] Progress Note - Hospitalist 09/14/24 0752 MR#: [id number] Acct: [id number] Name: OSCAR WOO Rep #:[id number] : 1950 74 From: Emili Lee MD PCP: Dr. Hernando Grimes MD Status:ADM NATE Location: [place] [address] Reason for Visit Reason for Visit: Diagnoses [...] IMPRESSION: See above Reading Location: [facility] Physical Exam Narrative General: Alert, [...] 35 Minutes Charges/Coding Visit Charges Inpatient E&M: 48533 [facility] Hosp L2 09/14/24 1234 <Electronically signed by Emili Lee MD> Cosigner Signature (if applicable): CC: ~ Signed [facility] Work Phone: 1(311) 330-965403-15-2025 Progress note [facility] Medical Records Department [address] [place] [address] Progress Note - Hospitalist 09/14/24 0752 MR#: [id number] Acct: [id number] Name: OSCAR WOO Nitesh Rep #:[id number] : 1950 74 From: Emili Lee MD PCP: Dr. Hernando Grimes MD Status:ADM NATE Location: [place]3 VF773-0 Reason for Visit Reason for Visit: Diagnoses [...] IMPRESSION: See above Reading Location: [facility] Physical Exam Narrative General: Alert, [...] 35 Minutes Charges/Coding Visit Charges Inpatient E&M: 21044 Subs Hosp L2 09/14/24 1234 Cosigner Signature (if applicable): CC: ~ Signed [facility]03-15-2025 Progress note Author Fahad Cavanaugh [facility] Note Date/Time September 14, 2024 8:[address] [facility] Medical Records Department [address] [place] [address] Progress Note - Orthopedic 09/14/24 0831 MR#: [id number] Acct: [id number] Name: OSCAR WOO Rep #:[id number] : 1950 74 From: Fahad Chi PCP: Dr. Hernando Grimes MD Status:ADM NATE Location: [place] [address] Subjective Subjective Patient is doing well overall. [...] 09/13/24 17:00 IMPRESSION: See above Reading [facility] Physical Exam Narrative Left upper extremity: Dressing [...] PICC line and home antibiotic regimen. [facility] Office: 09/14/24 0848 <Electronically signed by Fahad Cavanaugh MD> Cosigner Signature (if applicable): CC: ~ Signed [facility] Work Phone: 1(447) 336-496903-15-2025 Progress note Author Abdirashid Carrasquillo [facility] Note Date/Time September 14, 2024 6:[address] [facility] Medical Records Department [address] [place] [address] Progress Note - Hospitalist 09/13/241957 MR#: [id number] Acct: [id number] Name: OSCAR WOO Rep #:[id number] : 1950 74 From: Abdirashid Lloyd DO PCP: Dr. Hernando Grimes MD Status:ADM NATE Location: [place] [address] Reason for Visit Reason for Visit: Diagnoses [...] IMPRESSION: See above Reading Location: [facility] Physical Exam Const alert, oriented [...] Cosigner Signature (if applicable): CC: ~ Signed [facility] Work Phone: 1(494) [phone] Progress note [facility] Medical Records Department [address] [place] [address] Progress Note - Orthopedic 09/14/24 0831 MR#: [id number] Acct: [id number] Name: OSCAR WOO Rep #:[id number] : 1950 74 From: Fahad Chi PCP: Dr. Hernando Grimes MD Status:ADM [facility] Location: [place] [address] Subjective Subjective Patient is doing well overall. [...] IMPRESSION: See above Reading Location: [facility] Physical Exam Narrative Left upper [...] PICC line and home antibiotic regimen. [facility] Office: 09/14/24 0848 Cosigner Signature (if applicable): CC: ~ Signed [facility]03-15-2025 Procedure note [facility] Medical Records Department [address] [place] [address] Operative Report 09/13/24 1620 MR#: [id number] Acct: [id number] Name: OSCAR OWO Rep #:[id number] : 1950 74 From: Fahad Chi PCP: Dr. Hernando Grimes MD Status:ADM NATE Location: [place] [address] Operative Report (Standard) Operative Information Date of Procedure: 09/13/24 Pre-Operative Diagnosis: Left shoulder periprosthetic joint infection Post-Operative Diagnosis: Left shoulder periprosthetic joint infection Surgery/Procedure Performed: Irrigation debridement complete synovectomy revision left reverse total shoulder replacement revision auto [employer] porter: Yes [employer] Consultant: Odilon Pickett Tasks completed by junior sales assistant: Other (See body of operative report) [...] the course of the procedure the physician income tax auditor (PE) played a vital role. Their intimate [...] Lee MD; Dr. Fahad Cavanaugh MD~ Signed [facility]03-15-2025 Progress note [facility] Medical Records Department [address] [place] [address] Progress Note - Hospitalist 09/13/241957 MR#: [id number] Acct: [id number] Name: OSCAR WOO Rep #:[id number] : 1950 74 From: Abdirashid Lloyd DO PCP: Dr. Hernando Grimes MD Status:ADM NATE Location: [place] [id number] Reason for Visit Reason for Visit: Diagnoses [...] IMPRESSION: See above Reading Location: [facility] Physical Exam Const alert, oriented [...] Cosigner Signature (if applicable): CC: ~ Signed [facility]03-14-2025 Consult note Author Mercedes Patel [facility] Note Date/Time September 13, 2024 7:[facility] [address] [place] [address] Pharmacokinetic/Renal -Consult 09/13/241932 MR#: [id number] Acct: [id number] Name: OSCAR WOO Rep #:[id number] : 1950 74 From: Mercedes Patel PCP: Dr. Hernando Grimes MD Status:ADM NATE Y Location: [place] [address] Consult Antibiotic Management Pharmacy has been consulted [...] Signature (if applicable): Date CC: ~ Signed [facility] Work Phone: 1(655) 959-361203-14-2025 Consult note Author Omar Walters [facility] Note Date/Time September 13, 2024 7:[address] [facility] Medical Records Department [address] [address] Anesthesia Postop Eval II 09/13/241909 MR#: [id number] Acct: [id number] Name: OSCAR WOO Rep #:[id number] : 1950 74 From: Omar Walters MD PCP: Dr. Hernando Grimes MD Status:ADM NATE Y Race: C Location: [place] [address] Anesthesia Postop Eval I Sum Postop Eval Completion status Anesthesia document: Postop Eval 1 completed: Yes Anesthesia Postop Eval I Summary Anesthesia Postop Eval I Summary: Anesthesia Postop Eval I: Assessment Summary Airway patent Yes 09/13/24 17:12 [email or web address] Spontaneous unlabored Yes 09/13/24 17:12 [email or web address] respirations Mental status Calm 09/13/24 17:12 [email or web address] nausea No 09/13/24 17:12 [email or web address] Vomiting No 09/13/24 17:12 [email or web address] Anesthesia Postop Eval I: Fluid Summary Crystalloid volume administer 2,000 09/13/24 17:12 [email or web address] (ml) Colloids volume administered ( ml) Blood Product volume administered (ml) Total IV fluid infused 2,000 09/13/24 17:12 [email or web address] Anesthesia Postop Eval I: Summary Notes Anesthesia Complication No 09/13/24 17:12 [email or web address] Anesthesia Complication Comment: Post-operative progress note Anesthesia: Postop Eval II Evaluation Mental status: Awake Pain Level: 1 nausea: No Vomiting: No 09/13/241909 <Electronically signed by Omar Walters MD > Date _ Omar Walters MD Cosigner Signature: Date CC: ~ Signed [facility] Work Phone: 1(346) 332-466803-14-[address] [facility] Medical Records Department [address] [place] [address] Pharmacokinetic/Renal -Consult 09/13/241932 MR#: [id number] Acct: [id number] Name: OSCAR WOO Rep #:[id number] : 1950 74 From: Mercedes Patel PCP: Dr. Hernando Grimes MD Status:ADM NATE Y Location: [place] [address] Consult Antibiotic Management Pharmacy has been consulted [...] Signature (if applicable): Date CC: ~ Signed [facility]03-14-2025 Consult note Author Doug Yeoman [facility] Note Date/Time September 13, 2024 5:[facility] [address] [facility] [place] [address] Anesthesia Postop Eval I 09/13/24 1711 MR#: [id number] Acct: [id number] Name: ABELOSCAR E Rep #:[id number] : 1950 74 From: Doug DUENAS PCP: Dr. Hernando Grimes MD Status:ADM NATE Y Race: C Location: [place] [address] Anesthesia: Postop Eval I Current Vital Signs [...] CRNA Cosigner Signature: Date CC: ~ Signed [facility] Work Phone: 1(569) 805-168103-14-[address] [facility] Medical Records Department [address] [facility] [place] [address] Anesthesia Postop Eval II 09/13/24 1910 MR#: [id number] Acct: [id number] Name: OSCAR WOO Rep #:[id number] : 1950 74 From: Omar Walters MD PCP: Dr. Hernando Grimes MD Status:ADM NATE Y Race: C Location: [place] [address] Anesthesia Postop Eval I Sum Postop Eval Completion status Anesthesia document: Postop Eval 1 completed: Yes Anesthesia Postop Eval I Summary Anesthesia Postop Eval I Summary: Anesthesia Postop Eval I: Assessment Summary Airway patent Yes 09/13/24 17:12 [email or web address] Spontaneous unlabored Yes 09/13/24 17:12 [email or web address] respirations Mental status Calm 09/13/24 17:12 [email or web address] nausea No 09/13/24 17:12 [email or web address] Vomiting No 09/13/24 17:12 [email or web address] Anesthesia Postop Eval I: Fluid Summary Crystalloid volume administer 2,000 09/13/24 17:12 [email or web address] (ml) Colloids volume administered ( ml) Blood Product volume administered (ml) Total IV fluid infused 2,000 09/13/24 17:12 [email or web address] Anesthesia Postop Eval I: Summary Notes Anesthesia Complication No 09/13/24 17:12 [email or web address] Anesthesia Complication Comment: Post-operative progress note Anesthesia: Postop Eval II Evaluation Mental status: Awake Pain Level: 1 nausea: No Vomiting: No 09/13/24 1910 > Date _ Omar Luqueigner Signature: Date CC: ~ Signed [facility]03-14-2025 Radiology Diagnostic study note [facility] Imaging Services [address] [place], [place] [id number] Shoulder min 2 Views MR#: [id number] Acct: [id number] Name: OSCAR WOO Rep #: [id number] : 1950 F 74 From: Yen Donaldson MD PCP: Dr. Hernando Grimes MD Status: ADM NATE Study:Shoulder min 2 Views Date of Exam: 09/13/24 Exam# [id number] Ordering Dr: Celine Cavanaugh MD PROCEDURE: SHOULDER [...] Grimes MD; Dr. Fahad Cavanaugh MD ~ Credit Representative: Signed [facility]03-14-[address] [facility] Medical Records Department [address] [place] [address] Anesthesia Postop Eval I 09/13/24 1711 MR#: [id number] Acct: [id number] Name: OSCAR WOO Rep #:[id number] : 1950 74 From: Doug DARBY NA PCP: Dr. Hernando Grimes MD Status:ADM NATE Y Race: C Location: [place] [address] Anesthesia: Postop Eval I Current Vital Signs [...] Postop Eval 1 completed: Yes 09/13/24 171 CCNP> Date _ Doug Urias CCNP Cosigner Signature: Date CC: ~ Signed [facility]03-14-2025 Consult note Author Omar gracy [facility] Note Date/Time September 13, 2024 12: 05pm [facility] Medical Records Department [address] [place] [address] Pre-Anesthesia Evaluation 09/13/24 1204 MR#: [id number] Acct: [id number] Name: OSCAR WOO Rep #:[id number] : 1950 74 From: Omar Walters MD PCP: Dr. 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: Anesthesia History - cocktail server Hx Hospitalization No 09/11/24 15:02 Any Problems [...] take am of surgery PONV PONV - cocktail server: PONV - cocktail server Female Yes 09/11/24 15:02 HX of Motion [...] 05/05/22 15:52 Respiratory Assessment Respiratory Assessment - cocktail server: Respiratory Tract Infection Hx - cocktail server Hx Respiratory Tract Infection No 09/11/24 15:02 STOP Sleep Apnea STOP Sleep Apnea - cocktail server: STOP Sleep Apnea - cocktail server Hx Hypertension Yes: CONTROLLED WITH MED 09/11/24 [...] Tobacco Use History Tobacco Use History - cocktail server: Tobacco Use History - cocktail server Tobacco Use Smoking Status Former smoker 03/12/25 15:02 Hx Tobacco Use No 09/11/24 15:02 Years Smoking Packs Smoked per Day Smoking Cessation Date was No - quit smoking greater 09/11/24 15:02 within the last 15 years than 15 years ago Hx Smoking Cessation Date Hx Smoking Cessation No 09/11/24 15:02 Counseling Hematologic Medial History Hematologic Hx - cocktail server: 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 Medical Records Department [address] [place] [address] Pre-Anesthesia Evaluation 09/13/24 1204 MR#: [id number] Acct: [id number] Name: OSCAR WOO Rep #:[id number] : 1950 74 From: Omar Walters MD PCP: Dr. 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: Anesthesia History - cocktail server Hx Hospitalization No 09/11/24 15:02 Any Problems [...] take am of surgery PONV PONV - cocktail server: PONV - cocktail server Female Yes 09/11/24 15:02 HX of Motion [...] 05/05/22 15:52 Respiratory Assessment Respiratory Assessment - cocktail server: Respiratory Tract Infection Hx - cocktail server Hx Respiratory Tract Infection No 09/11/24 15:02 STOP Sleep Apnea STOP Sleep Apnea - cocktail server: STOP Sleep Apnea - cocktail server Hx Hypertension Yes: CONTROLLED WITH MED 09/11/24 [...] Tobacco Use History Tobacco Use History - cocktail server: Tobacco Use History - cocktail server Tobacco Use Smoking Status Former smoker 09/11/24 15:02 Hx Tobacco Use No 09/11/24 15:02 Years Smoking Packs Smoked per Day Smoking Cessation Date was No - quit smoking greater 09/11/24 15:02 within the last 15 years than 15 years ago Hx Smoking Cessation Date Hx Smoking Cessation No 09/11/24 15:02 Counseling Hematologic Medial History Hematologic Hx - cocktail server: 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 [place] 7:38pm Acute hypotension acute [facility] [place]24 7:38pm Acute kidney injury acute Septe mber 2024 7:38pm Acute respiratory failure with hypoxia and hypercapnia acute Sep tember 2024 7:38pm Bacteria in urine acute [facility] [place]24 7:38pm Debility acute March 7:38pm Hypothermia acute March 7:38pm Shock acute March 7:38pm Acute on chronic respiratory failure with hypoxia and hypercapnia chronic March 18, 2025 7:38pm [facility] Work Phone: History and physical note Author Emili Lee [facility] Note Date/Time March 18, 2025 8:45pm [facility] Medical Records Department [address] [place] [address] H&P Exam - Hospitalist 03/18/251937 MR#: [id number] Acct: [id number] Name: OSCAR WOO Rep #:[id number] : 1950 75 From: Emili Lee MD PCP: Dr. Hernando Grimes MD Status:ADM IN Location: ICU ICU02-1 HPI - General General Date of Admission: 03/18/25 Date of Service: 03/18/25 Chief Complaint: Altered mental status HPI Narrative OSCAR WOO, is a 75-year-old female with a history of restless leg syndrome, hypertension, depression, hypertension presented [facility] ED 03/18/2025 due to altered [...] and had not been having any vomiting. [facility] Medical History Infection and inflammatory reaction due [...] 84.3 H, Lymph % (Auto) 7.4 L, [place] % (Auto) 7.0, Eos % (Auto) 0.0, [...] Clarity Clear, Urine pH 6.0, Ur Specific [place] 1.015, Urine Protein 30 H, Urine Glucose [...] IMPRESSION: No acute intracranial process. Reading Location: [id number] Chest X-Ray 03/18/25 15:35 IMPRESSION: Bilateral low lung volumes. No acute cardiopulmonary abnormality. Reading Location: [facility] Chest X-Ray 03/18/25 17:44 IMPRESSION: 1. Endotracheal tube tip 3.1 cm above the abigail. 2. Enteric tube appropriately positioned terminating in the upper midabdomen. 3. Cardiomegaly, with increased vascular markings and possible interstitial edema. Reading Location: [id number] X-Ray 03/18/25 18:00 IMPRESSION: Enteric tube terminates appropriately within the stomach. Persistent IV contrast opacifying the kidneys suggesting medical renal disease with delayed excretion. Reading Location: [facility] Assessment & Plan Assessment/Plan (1) Shock: [...] started -Patient be admitted to the ICU, geophysical laboratory supervisor consulted - Patient received 1 L of IV fluids, not given further IV fluids due to recent diagnosis of heart failure and chest x-ray coronary congestion # Acute hypoxic hypercapnic respiratory failure -Patient came in altered, developed progressive hypoxia and was found to be hypercapnic, ultimately required intubation and sedation -Admit to ICU -Workup as above -Scheduled nebs -Will check proBNP - Manager [employer] consult #Acute renal failure - Creatinine was [...] Vasopressors started Charges/Coding Visit Charges Inpatient E&M: 33788 Init Hosp L3 03/18/252044 <Electronically signed by Emili Lee MD> Cosigner Signature (if applicable): CC: Dr. Hernando Grimes MD; Dr. Emili Lee MD~ Signed [facility] Work Phone: Reason for referral (narrative)No reason for referral information availableWParkview [facility] Work Phone: Advance Directives Documents on File Type Date Recorded Patient Survey Operations Director Expl anation Advance Directive(s) 01/27/2016 7:37 AM Advance Directive Response Recorded Date/ Time Advance Directives Yes October 03 3:41pm Living Will Yes June 24 020 2:31pm Power of Senior Asic Engineer Yes June 24, 2020 2:31pm Advance Directive Response Recorded Date/ Time Advance Directives Yes October 03 2:41pm Living Will Yes June 24 020 1:31pm Power of Senior Asic Engineer Yes June 24, 2020 1:31pm Advance Directive Response Recorded Date/ Time Living Will Yes September 13, 2024 6:26pm Power of Senior Asic Engineer Yes September 13 6:26pm Name of Medical Power of Senior Asic Engineer GRANDDAUGHTER/ SISTER September 13, 2024 6:26pm Advance Directives Yes October 03 3:41pm Advance Directive Response Recorded Date/ Time Living Will Yes September 18, 2024 4:28pm Do you have a Healthcare Power of Senior Asic Engineer? Yes September 18, 2024 4:28pm Name of Medical Power of Senior Asic Engineer Sister (Mary Jane Daniels) and Granddaughter (Pattie Woo) September 18, 2024 4:28pm Living Will Yes September 13, 2024 6:26pm Do you have a Healthcare Power of Senior Asic Engineer? Yes September 13, 2024 6:26pm Name of Medical Power of Senior Asic Engineer GRANDDAUGHTER/SISTER September 13, 2024 6:26pm Advance Directives Yes October 03 3:41pm Advance Directive Response Recorded Date/ Time Advance Directives Yes October 03 3:41pm Advance Directive Response Recorded Date/ Time Do you have a Healthcare Power of Senior Asic Engineer? No March 18, 2025 3:48pm Advance Directives [...] or prosecute any alcohol or drug abuse patient.[facility] Goals (unrecognized section and content) Goals may [...] Provider Active Start: March 17, 2025 Dr. Heranndo Grimes MD Attending Provider Active St art: March 17, 2025 Dr. Hernando Grimes MD Referring Provider Active St art: March 17, 2025 Team Status: Active Member Role/Relationship Status Dates Dr. Hernando Grimes MD Primary Care Provider Active Start: March 18, 2025 Dr. Deion Levy MD Emergency Provider Active Sta rt: March 18, 2025 Dr. Emili Lee MD Admit Provider Active Star t: March 18, 2025 Dr. Emili Lee MD Attending Provider Active Start: March 18, 2025 Dr. Emili Lee MD Other Provider Active Star t: March 18, 2025 INFORMATION SOURCE (unrecogn ized section and content) DATE CREATED AUTHOR 09/13/2024 [facility] DATE CREATED AUTHOR AUTHOR'S ORGANIZ ATION 10/04/2024 [facility] DATE CREATED AUTHOR AUTHOR'S ORGANIZ ATION 03/18/2025 [facility] FOR RECORDS PERTAINING TO PATIENTS WHO ARE [...] BE BASED ON THE PRIMARY CLINICAL RECORDS. [facility] [employer] provides no warranty or guarantee of the accuracy or completeness of information in this document.
[2025-03-18] MEDS: Propofol 10MG/Ml 1,000 MG/100 ML Bottle 6.7 MG CONT INF (23:19)
[2025-03-19] VITALS (87 sets, daily range): BP systolic 43–193; BP diastolic 1–119; PULSE 84–110; RESP 12–25; TEMP 35.6–38.3; O2SAT 93–100; BMI 38.6
--- NOTE | 2025-03-19 01:21 | CON.PCM.CC_ITS ---
HPI Consult Data Date of Consult: 03/19/25 HPI Narrative HPI Narrative: 75-year-old female with a history of restless leg syndrome, hypertension, depression, hypertension presented [facility] ED 03/18/2025 due to altered mental status. She had a recent CTA w/ a Infrarenal AAA and repeat CTA showed no rupture, no obvious PE. She was intubated and started on vasopressors and broad abx for ? Septic shock. [facility] Medical History Infection and inflammatory reaction due to other internal joint prosthesis, initial encounter Insomnia MRSA (methicillin resistant staph aureus) culture positive Wears glasses Post-menopausal Depression Anxiety Walker as ambulation aid Ambulates with cane Arthritis High cholesterol Back pain Restless legs Former smoker Shortness of breath on exertion History of pain when walking History of edema Hypertension Home Medications ?Medication ?Instructions ?Recorded ?Last Taken ?Type losartan 50 mg tablet 50 mg PO BID BP 09/19/14 History melatonin 5 mg tablet 10 mg PO QHS INSOMNIA Unknown History bupropion HCl 300 mg 24 hr tablet, 150 mg PO DAILY DEP RESSION 06/11/20 09/13/24 History extended release gabapentin 600 mg tablet 600 mg PO QHS SLEEP 06/11/20 Unknown History mirtazapine 15 mg tablet 15 mg PO QHS INSOMNIA 06/23/20 20:00 History duloxetine 30 mg capsule,delayed 30 mg PO DAILY DEPRES RAHEEM 09/11/24 09/13/24 History release (Cymbalta) pramipexole 0.5 mg tablet 0.5 mg PO DINNER RLS 5 Unknown History aspirin 81 mg chewable tablet 81 mg PO BID blood thinn er #0 tabs 09/17/24 Unknown Rx loperamide 2 mg capsule 2 mg PO Q2H PRN PRN DIARRHEA #0 09/17/24 Unknown Rx caps albuterol sulfate 90 mcg/actuation 2 inh inhalation Q4 H PRN shortness 03/18/25 Unknown History aerosol inhaler of breath or wheezing carvedilol 3.125 mg tablet 3.125 mg PO BID 03/18/25 Un known History doxycycline hyclate 100 mg capsule 100 mg PO BID abx 0 03/18/25 Unknown History indapamide 2.5 mg tablet 2.5 mg PO DAILY diuretic Unknown History naproxen sodium 220 mg tablet 440 mg PO DAILY PRN pain 03/18/25 Unknown History potassium citrate 10 mEq (1,080 10 meq PO DAILY Unknown History mg) tablet,extended release pramipexole 1 mg tablet 1 mg PO QHS restless leg Unknown History spironolactone 50 mg tablet 50 mg PO DAILY 03/18/25 Un known History Allergy/AdvReac Type Severity Reaction Status Date / Time Penicillins Allergy Anaphylaxis Verified 03/18/25 14:54 Surgical History History of reverse total replacement of right shoulder joint History of surgery Hx of colonoscopy Hx of right cataract extraction Hx of left cataract extraction History of partial colectomy Hx of appendectomy Hx of total hip arthroplasty Hx of total shoulder replacement Hx of lumbar discectomy Hx of total shoulder replacement Hx of total hip arthroplasty Social History household members: none Smoking Status: Former smoker alcohol intake: never substance use type: does not use Objective Data Objective Data Vital Signs: Vital Signs Last response 3 Temperature 35.6 C L 03/19/25 00:00 Temperature Source Core 03/19/25 00:00 Pulse Rate 97 03/19/25 01:12 Pulse Strength Normal (2+) 03/18/25 22:00 Respiratory Rate 25 H 03/19/25 01:12 Respiratory Effort Mechanically Ventilated 03/19/25 00:00 Respiratory Depth Normal 03/19/25 00:00 Respiratory Pattern Normal 03/19/25 00:00 Blood Pressure 80/58 L 03/19/25 00:18 Blood Pressure Mean 65 03/19/25 00:18 Blood Pressure Source Monitor 03/19/25 00:00 Blood Pressure Position Semi-Fowlers 03/18/25 23:00 Blood Pressure Location Right Arm 03/18/25 23:00 Pulse Ox 100 03/19/25 01:12 Oxygen Delivery Method Mechanical Ventilator 03/19/25 00:00 Oxygen Flow Rate (L/min) 4 03/18/25 17:48 Fraction of Inspired Oxygen (FIO2) 40 03/19/25 00:00 EtCo2 - Document during CPR and with ROSC 79 03/18/25 17:30 CLA-BSI maintained Yes: 5 Fr 03/18/25 23:36 I&O: I&O Last 24 Hours 3 03/18/25 03/18/25 03/19/25 11:59 23:59 11:59 Intake Total 1713.38 / 1720.76 121.75 / 121.75 Output Total 1100 / 1100 800 / 800 Balance 613.38 / 620.76 -678.25 / -678.25 I&O: Total Stay 3 03/18/25 14:53 thru 03/19/25 00:45 Intake Total 1835.13 Output Total 1900 Balance -64.87 Current Meds Ordered / Administered: Current meds ordered / Administered 3 Generic Name Dose Route Start Last Admin Trade Name Freq PRN Reason Stop Dose Admin Albuterol Sulfate 2.5 mg 03/18/25 20:43 Albuterol 2.5 Mg/3 Ml Vial.Neb. INHALATION Q2H PRN PRN SOB &/OR WHEEZING Albuterol/Ipratropium 3 ml 03/18/25 20:43 03/18/25 22:58 Ipratropium/Albuterol Sulfate 3 Ml Ampul.Neb INHALATION 3 ml Q4H.RT KACEY Administration Aspirin 81 mg 03/18/25 22:00 03/18/25 22:05 Aspirin 81 Mg Tab.Chew PO 81 mg BID KACEY Administration Chlorhexidine Gluconate 15 ml 03/18/25 22:00 03/18/25 21:40 Chlorhexidine 15 Ml PO 15 ml BID KACEY Administration Enoxaparin Sodium 30 mg 03/19/25 06:00 Enoxaparin 30 Mg/0.3 Ml Syringe SC DAILY@0600 KACEY Fentanyl 100 mls @ 2.5 mls/hr 03/18/25 17:45 03/19/25 00:30 CONT INF 50 mcg/hr UD KACEY 5 mls/hr Titration Protocol 25 MCG/HR Norepinephrine Bitartrate 8 mg 250 mls @ 9.375 mls/hr 03/18/25 18:10 03/19/25 00:18 / Sodium Chloride CONT INF 10 mcg/min .[id number] KACEY 18.8 mls/hr Titration Protocol 5 MCG/MIN Pantoprazole Sodium 40 mg/ 100 mls @ 300 mls/hr 03/19/25 10:00 Sodium Chloride IV Q24 KACEY Meropenem 1 gm/ Sodium 100 mls @ 33 mls/hr 03/19/25 10:00 Chloride IV Q12 KACEY Vancomycin IV-PHARMACY TO DOSE 500 mls @ 250 mls/hr 03/18/25 21:00 1 each/ Sodium Chloride IV PRN PRN Rx to Dose Protocol Sodium Chloride 250 mls @ 15 mls/hr 03/18/25 21:14 IV .[id number] PRN Saline Flush Sodium Chloride 250 mls @ 15 mls/hr 03/18/25 21:14 IV .[id number] PRN Additional IVPB Infusion Sodium Chloride 1,000 mls @ 1 mls/hr 03/18/25 21:14 IV .Q48H PRN Saline Flush Vancomycin HCl 1,250 mg/ 275 mls @ 167 mls/hr 03/19/25 21:30 Sodium Chloride IV Q24H KACEY Propofol 1,000 mg in 100 mls @ 6.732 mls/hr 03/18/25 23:10 03/19/25 00:45 Diprivan CONT INF 20 mcg/kg/min .Q12H KACEY 13.5 mls/hr Titration Protocol 10 MCG/KG/MIN Senna/Docusate Sodium 2 tablet 03/18/25 20:43 Senna/Docusate Sodium 1 Tablet PO BID PRN PRN Constipation Sodium Chloride 10 - 40 ml 03/18/25 21:14 03/18/25 22:09 0.9% Saline Lock 10 Ml Syringe IV 10 ml UD PRN Administration SALINE FLUSH Vancomycin Protocol 1 lab 03/20/25 20:00 Vancomycin Trough/Random Due 03/20/25 22:00 DAILY [facility] Physical Exam Vital Signs/Image Vital Signs/Narrative: Vital Signs Temp Pulse Resp BP Pulse Ox O2 Del Method FiO2 03/19/25 01:12 97 25 H 100 03/19/25 00:18 80/58 L 03/19/25 00:00 Mechanical Ventilator 40 03/19/25 00:00 35.6 C L 85 25 H 98/54 L 97 Mechanical Ventilator 40 03/18/25 23:45 165/78 H 03/18/25 23:30 79/56 L 03/18/25 23:00 34.7 C L 82 17 145/75 H 97 Mechanical Ventilator 40 03/18/25 22:58 78 16 96 03/18/25 22:58 81 14 03/18/25 22:00 79 03/18/25 22:00 33.3 C L 87 14 202/116 H 91 Mechanical Ventilator 40 03/18/25 21:54 33.3 C L 77 14 196/133 H 95 Mechanical Ventilator 40 03/18/25 21:30 33.0 C L 90 14 190/123 H 94 Mechanical Ventilator 40 03/18/25 21:30 190/123 H 03/18/25 21:30 76 14 100 03/18/25 21:26 33.0 C L 79 14 191/141 H 97 Mechanical Ventilator Physical Exam Eyes: Positive for Perrl and EOMI Cardiovascular: Positive for Regular rate and Regular rhythm Respiratory: Positive for - (passive on vent) Abdomen: Positive for Soft, Nontender and Nondistended Vital Signs/Image Vital Signs/Narrative: Vital Signs Temp Pulse Resp BP Pulse Ox O2 Del Method FiO2 03/19/25 01:12 97 25 H 100 03/19/25 00:18 80/58 L 03/19/25 00:00 Mechanical Ventilator 40 03/19/25 00:00 35.6 C L 85 25 H 98/54 L 97 Mechanical Ventilator 40 03/18/25 23:45 165/78 H 03/18/25 23:30 79/56 L 03/18/25 23:00 34.7 C L 82 17 145/75 H 97 Mechanical Ventilator 40 03/18/25 22:58 78 16 96 03/18/25 22:58 81 14 03/18/25 22:00 79 03/18/25 22:00 33.3 C L 87 14 202/116 H 91 Mechanical Ventilator 40 03/18/25 21:54 33.3 C L 77 14 196/133 H 95 Mechanical Ventilator 40 03/18/25 21:30 33.0 C L 90 14 190/123 H 94 Mechanical Ventilator 40 03/18/25 21:30 190/123 H 03/18/25 21:30 76 14 100 03/18/25 21:26 33.0 C L 79 14 191/141 H 97 Mechanical Ventilator Physical Exam General: Positive for Well nourished and Well developed Eyes: Positive for Perrl and EOMI Neck: Positive for Nontender Cardiovascular: Positive for Regular rate and Regular rhythm Respiratory: Positive for - (passive on vent) Abdomen: Positive for Soft, Nontender and Nondistended Neurological: Positive for Alert Lab / Micro Data 03/18/25 15:15 03/18/25 15:15 Labs: Laboratory Results - last 24 hr 03/18/25 15:15: WBC 9.9, RBC 5.40, Hgb 15.8 H, Hct 50.5 H, MCV 93.5, MCH 29.3, M CHC 31.3 L, RDW Std Deviation 49.9 H, RDW Coeff of Terry 14.6, Plt Count 218, MPV 10.4, Immature Gran % (Auto) 0.900, Neut % (Auto) 84.3 H, Lymph % (Auto) 7.4 L, Bledsoe % (Auto) 7.0, Eos % (Auto) 0.0, Baso % (Auto) 0.4, Absolute Neuts (auto) 8.4 H, Absolute Lymphs (auto) 0.73 L, Nucleated RBC % 0, ESR 37 H, PT 12.4, INR 0.9, APTT 27.8, Sodium 131 L, Potassium 4.4, Chloride 84 L, Carbon Dioxide 32.8 H, Anion Gap 14, BUN 51 H, Creatinine 2.22 H, Estim Creat Clear Calc 27.85 L, E st GFR (MDRD) Non-Af 22 L, BUN/Creatinine Ratio 22.8 H, Glucose 115 H, Lactic Acid 1.1, Calcium 9.7, Total Bilirubin 0.35, AST 86 H, ALT 61 H, Alkaline Phosphatase 162 H, C-React Prot Ext Range 5.32 H, Total Protein 7.7, Albumin 4.1, Globulin 3.6, Albumin/Globulin Ratio 1.1, Procalcitonin 0.10, TSH 1.650 03/18/25 15:24: Urine Color Yellow, Urine Clarity Clear, Urine pH 6.0, Ur Specific [place] 1.015, Urine Protein 30 H, Urine Glucose (UA) Normal, Urine Ketones Negative, Urine Occult Blood Negative, Urine Nitrite Negative, Urine Bilirubin Negative, Urine Urobilinogen Normal, Ur Leukocyte Esterase Negative, Urine RBC 0-5 SEEN, Urine WBC 0-5 SEEN, Ur Squamous Epith Cells 0-5 SEEN, Ur Transition Epith Cell 0-5 SEEN, Urine Bacteria 1+, Urine Mucus 0 SEEN 03/18/25 21:46: NT pro BNP II 2155 H Micro: Microbiology 03/18/25 20:15 Mucosa - Nasopharyngeal Respiratory Panel (PCR) - Final ABG Data ABG results: ABG 03/18/25 18:22 Specimen Type ART Sample Site L Brach pH 7.32 L Bicarbonate Actual 30.3 H Total CO2 32 Base Excess 4 H O2 Saturation 97 O2 % 40.0 ABG pCO2 59.2 H ABG pO2 101 H Respiration Rate 14 O2 Delivery Device Adult Vent Vent Mode AC/VC Tidal Volume 400.0 POC PEEP 5 Imaging Radiology Impression Brain CT 03/18/25 15:30 IMPRESSION: No acute intracranial process. Reading Location: [id number] Chest X-Ray 03/18/25 15:35 IMPRESSION: Bilateral low lung volumes. No acute cardiopulmonary abnormality. Reading Location: [id number] Chest X-Ray 03/18/25 17:44 IMPRESSION: 1. Endotracheal tube tip 3.1 cm above the abigail. 2. Enteric tube appropriately positioned terminating in the upper midabdomen. 3. Cardiomegaly, with increased vascular markings and possible interstitial edema. Reading Location: [facility] KUB X-Ray 03/18/25 18:00 IMPRESSION: Enteric tube terminates appropriately within the stomach. Persistent IV contrast opacifying the kidneys suggesting medical renal disease with delayed excretion. Reading Location: [facility] Abdomen/Pelvis CTA 03/18/25 18:50 IMPRESSION: 1. No acute or active inflammatory intra-abdominal pathology. 2. Stable saccular infrarenal abdominal aortic aneurysm measuring up to 4.4 cm. 3. Indeterminate 15 mm right adrenal gland nodule, probably adenoma. Suggest follow-up dedicated adrenal CT or MRI in 12 months to assess stability. Reading Location: [facility] Chest X-Ray 03/18/25 19:02 IMPRESSION: 1. New right subclavian approach central venous catheter, tip at the lower SVC. 2. Stable positioning of the endotracheal and enteric tubes. 3. Unchanged lung aeration. Stable cardiomegaly. Reading Location: [facility] Assessment and Plan . Assessment and plan: AMS Acute Respiratory Failure Shock ELVIA AAA Hx of Prosthetic Joint Infection Plan - Admit ICU - Vent adjusted - Broad abx - Volume resus, on low dose levo - CT UE - ID Consult in the AM - ECHO tomorrow - GI and DVT ppx Critical Care Time: 60 minutes The entirety of this encounter was done via Telemedicine
--- NOTE | 2025-03-19 01:33 | ECHOLC_ITS ---
Reason For Study Reason For Study: CHF Procedure This was a limited 2D transthoracic echocardiogram. The study was technically difficult. Contrast injection was performed. Echo done with patient supine and on the Vent. Left Ventricle Normal LV size. Moderate concentric left ventricular hypertrophy. Left ventricular systolic function is hyperdynamic. The left ventricular ejection fraction is 75 %. No regional wall motion abnormalities noted. Right Ventricle Normal RV size. Normal systolic function. Atria Normal left atrium. Normal right atrium. Mitral Valve Normal mitral valve. Tricuspid Valve Normal tricuspid valve. Aortic Valve Trisinus/trileaflet aortic valve. Pulmonic Valve Normal pulmonic valve. Great Vessels Normal aortic root. The pulmonary artery is normal size. Normal inferior vena cava. Pericardium/Pleural Small (<1.0 cm) pericardial effusion. There are no echocardiographic indications of cardiac tamponade. Medication Diluted definity 2ml given slow IV push to enhance endocardial definition. MMode/2D Measurements & Calculations LVIDd: 4.2 cm IVSd: 1.5 cm LVIDs: 2.4 cm LVPWd: 1.3 cm LVAd ap4: 26.9 cm2 FS: 43.9 % LVLd ap4: 7.6 cm EDV(MOD-sp4): 78.4 ml EDV(sp4-el): 81.0 ml LVAs ap4: 12.8 cm2 LVLs ap4: 6.1 cm ESV(MOD-sp4): 21.4 ml ESV(sp4-el): 22.7 ml EF(MOD-sp4): 72.6 % EF(sp4-el): 72.0 % SV(MOD-sp4): 56.9 ml SV(sp4-el): 58.3 ml SI(MOD-sp4): 26.1 ml/m2 ECHO/Echo Limited w/Contrast Interpretation Summary Normal LV size. Left ventricular systolic function is hyperdynamic. The left ventricular ejection fraction is 75 %. Small (<1.0 cm) pericardial effusion. There are no echocardiographic indications of cardiac tamponade. Moderate concentric left ventricular hypertrophy. Ordering Physician: Wally Waddell Performed By: Xavier Castano RCS
[2025-03-19] MEDS: Propofol 10MG/Ml 1,000 MG/100 ML Bottle 23.6 MG CONT INF (03:45)
--- NOTE | 2025-03-19 04:00 | RAD_ITS ---
PROCEDURE: SHOULDER MIN 2 VIEWS 03/19/2025 REASON FOR EXAM: SHOULDER PAIN R/O GAS TECHNIQUE: Procedure Code: RADSH Modality: DX Procedure: SHOULDER MIN 2 VIEWS Laterality: LEFT. COMPARISON: Radiograph of the chest on 03/18/2025. FINDINGS: Lucencies are suspected in the proximal aspect of the left arm. Unremarkable metallic prosthesis of the left shoulder. Mild osteopenia of the visualized bones. Degenerative joint disease. No fracture or dislocation is seen. No lytic or blastic bone lesion is noted. RAD/Shoulder min 2 Views IMPRESSION: Lucencies are suspected in the soft tissues of the proximal left arm. Findings can be better evaluated by CT exam if clinically warranted to exclude the presence of soft tissue gas at this level. The exam is significantly limited secondary to patient's body habitus and posit ion. Reading Location[facility] [id number]
[2025-03-19] MEDS: 0.9% Saline Lock 10 ML Syringe IV ×4 (04:50→18:07)
[2025-03-19 05:07] LABS: AST(SGOT) 94 U/L (<=31); Alanine Aminotransfer ALT/SGPT 64 U/L (<=34); Albumin, Serum 3.6 g/dL (3.4-4.8); Alkaline Phosphatase 149 U/L (35-104); Anion Gap 16 (5-15); BUN 54 mg/dL (4-19); BUN/Creat Ratio 26.2 RATIO (10-20); Calcium,Total 8.7 mg/dL (7.6-11.0); Carbon Dioxide 30.8 mmol/L (21.0-32.0); Chloride 88 mmol/L (98-108); Estimated Creatinine Clearance 29.42 ml/min (50-250); Globulin 3.0 g/dL (2.2-4.2); Glucose 88 mg/dL (70-99); Potassium 3.5 mmol/L (3.3-5.1)
[2025-03-19 05:16] LABS: CPK Total, Creatine Kinase 137 U/L (24-195); Triglycerides 90 mg/dL
[2025-03-19 05:54] LABS: Creatinine, Urine (random) 83.80 mg/dL (28.00-217.00); Urea Nitrogen, Urine 390 mg/dL (NO RANGE EST.)
[2025-03-19 05:59] LABS: Hematocrit 46.5 % (37-47); Hemoglobin 15.7 g/dL (12.0-15.0); Red Blood Count 5.28 M/mm3 (4.2-5.4); White Blood Count 14.9 K/mm3 (4.4-11.0)
[2025-03-19 06:00] LABS: Immature Granulocytes Count 0.080 X10^3/uL (0.0-0.0); Mean Corp Hgb Conc 33.8 g/dL (32-36); Mean Corpuscular Volume 88.1 fL (81-99); Mean Platelet Vol. 10.3 fl (6.2-12.0); Platelet Count 244 K/mm3 (150-450); RBC Distribution Width CV 14.4 % (11.6-14.6); RBC Distribution Width SD 45.3 fl (35.1-43.9)
[2025-03-19] MEDS: fentaNYL drip 100 ML 10 MCG CONT INF ×2 (06:39→16:14)
--- NOTE | 2025-03-19 06:47 | PN.HOSP_ITS ---
Hospitalist Note [id number] called by nursing metal cans supervisor to assist with arterial line. upon arrival, patient awake and intubated. After 1% lido skin wheel, attempt x2 on right radial under US, access obtained unable to thread catheter. Attempt x1 left radial under US unsuccessful. 1% lido skin wheel right radial under US with micropuncture catheter successful. Patient tolerated procedure well.
[2025-03-19] MEDS: Norepinephrine 8 MG in 0.9% Normal Saline (250mL Bag) 242 ML 30 MG CONT INF (06:55)
[2025-03-19] MEDS: TITRATION PARAMETER CHANGE 1 EACH IV (07:34)
[2025-03-19] MEDS: Propofol 10MG/Ml 1,000 MG/100 ML Bottle 23.4 MG CONT INF (07:40)
[2025-03-19 08:04] LABS: Osmolality, Urine 437 mOsm/KG
--- NOTE | 2025-03-19 08:09 | PCM.PN.BLA ---
Progress Note The patient was seen and examined this morning, in follow up from civil engineering specialist evaluation overnight. The patient initially presented to the emergency department with altered mental status with negative CT imaging of the head. Her initial presentation was complicated by hypotension, which was refractory to fluid resuscitation. In light of the patient's altered mental status and fear for airway protection, the patient was intubated in the emergency department. A subclavian central venous catheter was also placed. The patient was ultimately admitted to the medical intensive care unit with undifferentiated shock and need for vasopressor support. She remains on empiric broad-spectrum antimicrobials and has been noted to have increasing vasopressor requirement over the course of the morning. Therefore, in addition to continuing Levophed, vasopressin and stress dose steroids were initiated. Her infectious workup is pending. Blood counts are currently stable. Repeat echocardiogram is pending. A follow-up ABG this morning demonstrated a pH of 7.46 with a pCO2 of 48 and pO2 of 63. Creatinine is elevated at 2.06. Lactate is within normal limits. Full supportive care will be continued, pending outcome of patient family discussion regarding goals of care.
[2025-03-19 08:16] LABS: Base Excess 10 mmol/L (-2 to +2); FI02 35.0; PEEP 5; PO2 63 mmHG (75-100); RR 14; SITE Art Line; SO2 93 % (95-99)
[2025-03-19] MEDS: Meropenem 1 GM in 0.9% Normal Saline (100mL MB+) 100 ML IV ×2 (08:18→21:49)
[2025-03-19] MEDS: Lactated Ringers 1,000 ML 999 ML IV ×2 (08:18→09:57)
[2025-03-19] MEDS: Pantoprazole Sodium 40 MG in 0.9% Normal Saline (100mL MB+) 100 ML 300 MG IV (09:57)
[2025-03-19] MEDS: Chlorhexidine 15 ML PO ×2 (09:57→21:53)
[2025-03-19] MEDS: Vasopressin 20 UNITS in 0.9% Normal Saline (50mL Bag) 24 ML 3 UNITS CONT INF ×2 (11:20→14:34)
[2025-03-19] MEDS: Propofol 10MG/Ml 1,000 MG/100 ML Bottle 26.8 MG CONT INF ×4 (11:23→21:55)
--- NOTE | 2025-03-19 11:59 | CASEMGMT ---
Social Work- SW participated in interdisciplinary rounds with care team. SW, bedside nurse, and nursing copy supervisor met with pt granddaughter and HCPOA, Afua and sister Daina apart from extended family present. Education regarding pt medical status given by nursing. Education on living will and HCPOA provided and support offered by SW. Pt granddaughter reports that pt other sister, Mary Jane, was called in ED, as granddaughter was at work. Pt granddaughter reports that she was not consulted by Mary Jane in decision to change code status and intubate. Pt granddaughter reports that she will have conversation with Mary Jane and family to discuss plans moving forward in terms of care vs extubation. Pt granddaughter reports no needs at this time. SW offered to support during further conversations; pt granddaughter will reach out if desired. Pt extended family deny any support needs at this time. ANSHU remains available to follow. GREER Chacko
[2025-03-19] MEDS: Norepinephrine 8 MG in 0.9% Normal Saline (250mL Bag) 242 ML 28.1 MG CONT INF (13:17)
--- NOTE | 2025-03-19 14:11 | PN_ITS ---
Subjective Subjective Patient seen and examined. She is intubated on the vent. However RASS score is 0 and she is able to open eyes and nod or shake head in response to questions. She denied being in pain. Unable to comprehensive review of systems due to her being intubated. She remains febrile with temperature being 100.5 today. WBCs 14.9. Objective Data Objective Data Vital Signs: Vital Signs Temp Pulse Resp BP Pulse Ox O2 Del Method O2 Flow Rate 100.9 F H 108 H 13 117/81 H 96 Mechanical Ventilator 4 03/19/25 13:00 03/19/25 13:00 03/19/25 13:00 03/19/25 13:17 03/19/25 13:00 03/19/25 13:00 03/18/25 17:48 FiO2 35 03/19/25 08:00 Oxygen Flow Rate (L/min) 4 Oxygen Delivery Method Mechanical Ventilator Weight: 246 lb 0.574 oz Body Mass Index (BMI) 38.6 Intake & Output: Intake and Output for Last 24 Hours 03/17/25 03/18/25 03/19/25 23:59 23:59 23:59 Intake Total 1713.37 / 1720.75 3189.68 / 3189.68 Output Total 1100 / 1100 2024 / 2024 Balance 613.37 / 620.75 1164.68 / 1164.68 Lab / Micro Data 03/19/25 03:18 03/19/25 03:58 Labs: Laboratory Results - last 24 hr 03/18/25 03:50: Urine Osmolality 437, Ur Random Sodium 28, Urine Creatinine 83.80, Urine Potassium 31.9, Urine Chloride < 20, Urine Urea Nitrogen 390 03/18/25 03:58: Total Creatine Kinase 137, Triglycerides 90 03/18/25 15:15: WBC 9.9, RBC 5.40, Hgb 15.8 H, Hct 50.5 H, MCV 93.5, MCH 29.3, M CHC 31.3 L, RDW Std Deviation 49.9 H, RDW Coeff of Terry 14.6, Plt Count 218, MPV 10.4, Immature Gran % (Auto) 0.900, Neut % (Auto) 84.3 H, Lymph % (Auto) 7.4 L, [place] % (Auto) 7.0, Eos % (Auto) 0.0, Baso % (Auto) 0.4, Absolute Neuts (auto) 8.4 H, Absolute Lymphs (auto) 0.73 L, Nucleated RBC % 0, ESR 37 H, PT 12.4, INR 0.9, APTT 27.8, Sodium 131 L, Potassium 4.4, Chloride 84 L, Carbon Dioxide 32.8 H, Anion Gap 14, BUN 51 H, Creatinine 2.22 H, Estim Creat Clear Calc 27.85 L, E st GFR (MDRD) Non-Af 22 L, BUN/Creatinine Ratio 22.8 H, Glucose 115 H, Lactic Acid 1.1, Calcium 9.7, Total Bilirubin 0.35, AST 86 H, ALT 61 H, Alkaline Phosphatase 162 H, C-React Prot Ext Range 5.32 H, Total Protein 7.7, Albumin 4.1, Globulin 3.6, Albumin/Globulin Ratio 1.1, Procalcitonin 0.10, TSH 1.650 03/18/25 15:24: Urine Color Yellow, Urine Clarity Clear, Urine pH 6.0, Ur Specific [place] 1.015, Urine Protein 30 H, Urine Glucose (UA) Normal, Urine Ketones Negative, Urine Occult Blood Negative, Urine Nitrite Negative, Urine Bilirubin Negative, Urine Urobilinogen Normal, Ur Leukocyte Esterase Negative, Urine RBC 0-5 SEEN, Urine WBC 0-5 SEEN, Ur Squamous Epith Cells 0-5 SEEN, Ur Transition Epith Cell 0-5 SEEN, Urine Bacteria 1+, Urine Mucus 0 SEEN 03/18/25 21:46: NT pro BNP II 2155 H 03/19/25 03:18: WBC 14.9 H, RBC 5.28, Hgb 15.7 H, Hct 46.5, MCV 88.1 D, MCH 29.7, MCHC 33.8 D, RDW Std Deviation 45.3 H, RDW Coeff of Terry 14.4, Plt Count 244, MPV 10.3, Immature Gran % (Auto) 0.500, Neut % (Auto) 83.0 H, Lymph % (Auto) 11.9 L, [place] % (Auto) 4.2, Eos % (Auto) 0.1, Baso % (Auto) 0.3, Absolute Neuts (auto) 12.4 H, Absolute Lymphs (auto) 1.78 03/19/25 03:58: Sodium 134, Potassium 3.5, Chloride 88 L, Carbon Dioxide 30.8, A nion Gap 16 H, BUN 54 H, Creatinine 2.06 H, Estim Creat Clear Calc 29.42 L, Est GFR (MDRD) Non-Af 25 L, BUN/Creatinine Ratio 26.2 H, Glucose 88, Calcium 8.7, Total Bilirubin 0.56, AST 94 H, ALT 64 H, Alkaline Phosphatase 149 H, Total Protein 6.6, Albumin 3.6, Globulin 3.0, Albumin/Globulin Ratio 1.2 03/19/25 08:15: Lactic Acid 1.3 Micro: Microbiology 03/18/25 19:14 Sputum, Induced/Lukens Gram Stain - Final 03/19/25 08:25 Gastric Fluid/Contents Gastric Occult Blood - Final Occult Blood Positive 03/18/25 20:15 Mucosa - Nasopharyngeal Respiratory Panel (PCR) - Final ABG Data ABG results: ABG 03/18/25 03/19/25 18:22 08:13 Specimen Type ART ART Sample Site L Brach Art Line pH 7.32 L 7.46 H Bicarbonate Actual 30.3 H 34.3 H Total CO2 32 36 Base Excess 4 H 10 H O2 Saturation 97 93 L O2 % 40.0 35.0 ABG pCO2 59.2 H 48.5 H ABG pO2 101 H 63 L Respiration Rate 14 14 O2 Delivery Device Adult Vent Adult Vent Vent Mode AC/VC AC Tidal Volume 400.0 400.0 POC PEEP 5 5 Radiography Diagnostic Testing: Radiology Impression Brain CT 03/18/25 15:30 IMPRESSION: No acute intracranial process. Reading Location: [facility] Chest X-Ray 03/18/25 15:35 IMPRESSION: Bilateral low lung volumes. No acute cardiopulmonary abnormality. Reading Location: [id number] Chest X-Ray 03/18/25 17:44 IMPRESSION: 1. Endotracheal tube tip 3.1 cm above the abigail. 2. Enteric tube appropriately positioned terminating in the upper midabdomen. 3. Cardiomegaly, with increased vascular markings and possible interstitial edema. Reading Location: [facility]UB X-Ray 03/18/25 18:00 IMPRESSION: Enteric tube terminates appropriately within the stomach. Persistent IV contrast opacifying the kidneys suggesting medical renal disease with delayed excretion. Reading Location: [facility] Abdomen/Pelvis CTA 03/18/25 18:50 IMPRESSION: 1. No acute or active inflammatory intra-abdominal pathology. 2. Stable saccular infrarenal abdominal aortic aneurysm measuring up to 4.4 cm. 3. Indeterminate 15 mm right adrenal gland nodule, probably adenoma. Suggest follow-up dedicated adrenal CT or MRI in 12 months to assess stability. Reading Location: [facility] Chest X-Ray 03/18/25 19:02 IMPRESSION: 1. New right subclavian approach central venous catheter, tip at the lower SVC. 2. Stable positioning of the endotracheal and enteric tubes. 3. Unchanged lung aeration. Stable cardiomegaly. Reading Location: [facility] Echocardiogram 03/19/25 01:33 Interpretation Summary Normal LV size. Left ventricular systolic function is hyperdynamic. The left ventricular ejection fraction is 75 %. Small (<1.0 cm) pericardial effusion. There are no echocardiographic indications of cardiac tamponade. Moderate concentric left ventricular hypertrophy. Ordering Physician: Wally Waddell Performed By: Xavier Castano RCS Shoulder X-Ray 03/19/25 04:00 IMPRESSION: Lucencies are suspected in the soft tissues of the proximal left arm. Findings can be better evaluated by CT exam if clinically warranted to exclude the presence of soft tissue gas at this level. The exam is significantly limited secondary to patient's body habitus and position. Reading Location: [place] [id number] Physical Exam Const Constitutional Narrative: Intubated, sedated, RASS score is 0. Able to open eyes and nod or shake her head in response to questions. HEENT normocephalic and head/scalp atraumatic Mouth: dry mucous membranes Eyes EOMs intact bilaterally Neck supple Lymph Lymphatic: no lymphedema noted Resp Resp Narrative: Moderately diminished breath sounds bibasilarly. Intubated and sedated. Cardio regular rate, regular rhythm, S1 normal heart sound, S2 normal heart sound and no murmurs GI normal to inspection, nondistended, normoactive bowel sounds, soft to palpation and non-tender GI Narrative: Obese abdomen Extremity no clubbing, cyanosis or edema and no calf tenderness General Extremity: no tenderness to palpation of joints or extremities Skin General Skin Exam: no breakdown Neuro Neuro Narrative: Intubated, sedated. RASS score 0 Motor Exam: general weakness Assessment & Plan Assessment/Plan (1) Acute respiratory failure with hypoxia and hypercapnia: (2) Shock: PLAN: Plan #Undifferentiated shock * Etiology is not clear. She was admitted with altered mental status and hypotension as well as acute renal failure. * She was unresponsive to fluids so central line was placed and she was started on pressors. She was also in respiratory distress so was intubated * CT chest abdomen and pelvis showed only infrarenal saccular aortic aneurysm measuring 3.8 x 4.5 x 5.5 cm * CTA also did not show any evidence of rupture of the saccular aortic aneurysm * Blood and urine cultures pending. Critical care on board. On broad-spectrum antibiotics. * Currently on Levophed, vasopressin and stress dose steroids. * Limited echo done today showed normal ventricular size with moderate concentric left ventricular hypertrophy and hyperdynamic left ventricular systolic function with left ventricular EF of 75% and no regional wall motion abnormality seen * #Acute hypoxic and hypercapnic respiratory failure * Remains intubated and sedated. Critical care on board. #Acute renal failure: Creatinine is 2.06. Was 2.22 on admission. Day catheter in place. Monitor intake and output. Fluid restriction to 1500 cc daily. #History of left shoulder prosthetic infection: * On long-term antibiotics for this. Continue the antibiotics * Right shoulder x-ray showed lucencies in the soft tissues of the proximal left arm and findings can be better evaluated by CT exam if clinically warranted with exam significantly limited by patient's body habitus and positioning #Heart failure preserved EF: Has EF of 70% and stage I diastolic dysfunction per 2D echo done on 03/04/2025. Limited echo ordered. #Infrarenal aneurysm * CTA of the abdomen showed the infrarenal saccular aortic aneurysm measuring 3.8 x 4.5 x 5.5 cm as above. * Follow-up with PCP for further workup and referral on outpatient basis as needed * #Restless leg syndrome: Oral meds on hold currently. #Hypertension: BP meds on hold due to hypotension and shock #Depression and anxiety: Meds also on hold as she is intubated DVT prophylaxis: SCDs, Lovenox Charges/Coding Visit Charges Inpatient E&M: [id number] [facility]osp L3
--- NOTE | 2025-03-19 14:31 | CASEMGMT ---
Social Work- SW checked in on pt needs. Pt is giving thumbs up and able to write to communicate with family. Pt reports to family that Doug called her back and pt is agreeable to continued medical supports. Pt family feel that they want to follow pt current directions at this time. No extubation discussions at this time. SW remains available to follow for supports. No needs at this time. GREER Chacko
--- NOTE | 2025-03-19 19:33 | PCM.HOSP.N ---
Hospitalist Note ICU physician recommended ID consultation and possible UE CT. Will place consult for ID and await their further recommendations.
--- NOTE | 2025-03-19 20:58 | NURSING ---
ART line with positional readings in beginning of shift. Began alarming ART disconnect and not showing consistent pressures. ART line zeroed by two RNs, dressing changed, and flushed. Still not showing consistent readings. BP taken on L arm by monitor and manual. Blood pressures accurate at this time, checked by two RNs.
[2025-03-19] MEDS: Norepinephrine 8 MG in 0.9% Normal Saline (250mL Bag) 242 ML 37.5 MG CONT INF (21:49)
[2025-03-19] MEDS: Vancomycin HCl 1,250 MG in 0.9% Normal Saline (250mL Bag) 250 ML 167 MG IV (21:49)
[2025-03-20] VITALS (67 sets, daily range): BP systolic 62–182; BP diastolic 39–104; PULSE 83–106; RESP 12–25; TEMP 37.2–38.1; O2SAT 92–100; BMI 39.3
[2025-03-20] MEDS: Propofol 10MG/Ml 1,000 MG/100 ML Bottle 26.8 MG CONT INF ×2 (00:41→04:30)
[2025-03-20] MEDS: fentaNYL drip 100 ML 10 MCG CONT INF (02:38)
[2025-03-20] MEDS: 0.9% Saline Lock 10 ML Syringe IV (04:31)
[2025-03-20 04:35] LABS: Hematocrit 44.0 % (37-47); Hemoglobin 14.9 g/dL (12.0-15.0); Immature Granulocytes Count 0.090 X10^3/uL (0.0-0.0); Mean Corp Hgb Conc 33.9 g/dL (32-36); Mean Corpuscular Volume 87.5 fL (81-99); Mean Platelet Vol. 10.3 fl (6.2-12.0); NRBC Flagged by Analyzer 0 % (0-5); POSITIVE DIFFERENTIAL YES; Platelet Count 221 K/mm3 (150-450); RBC Distribution Width CV 14.9 % (11.6-14.6); RBC Distribution Width SD 46.7 fl (35.1-43.9); Red Blood Count 5.03 M/mm3 (4.2-5.4); White Blood Count 13.3 K/mm3 (4.4-11.0)
[2025-03-20] MEDS: Norepinephrine 8 MG in 0.9% Normal Saline (250mL Bag) 242 ML 28.1 MG CONT INF (04:44)
[2025-03-20 05:03] LABS: Anion Gap 13 (5-15); BUN 38 mg/dL (4-19); BUN/Creat Ratio 26.4 RATIO (10-20); Calcium,Total 9.0 mg/dL (7.6-11.0); Carbon Dioxide 31.0 mmol/L (21.0-32.0); Chloride 95 mmol/L (98-108); Estimated Creatinine Clearance 43.32 ml/min (50-250); Glucose 129 mg/dL (70-99); Potassium 3.6 mmol/L (3.3-5.1)
--- NOTE | 2025-03-20 06:52 | PCM.CONS.C ---
Assessment & Plan Assessment/Plan (1) Acute hypotension: PLAN: I suspect the etiology of the above is likely on the basis of dehydration and sepsis. She has been previously on antihypertensive medication her BUN and creatinine were elevated she has a hyperdynamic ventricle. Mild commendation is to make her appropriately fluid replete and slowly wean off on her pressor agents. I do not think that there is any acute cardiac event or vascular event which is contributing to the above. She is already doing better and I will continue to follow with you peripherally. Thank you for allowing me to participate in the care of your patient. Please don't hesitate to call if any issues arise. (2) Essential (primary) hypertension: PLAN: She has a history of hypertension but at the moment her antihypertensive medications are on hold. (3) Saccular aneurysm: PLAN: She has an infrarenal saccular aneurysm which will be worked up and patient to be appropriately dispensed. Thank you for allowing me to participate in the care of your patient. Please don't hesitate to call if any issues arise. HPI Consult Data Date of Consult: 03/20/25 HPI Narrative HPI Narrative: OSCAR ROMAN, is a 75 F who presents with a history of restless leg syndrome, hypertension, depression and came into the hospital due to altered mental status. The patient was initially diagnosed with low blood pressure and possible sepsis with an elevated BUN and creatinine. Patient was noted to have an infrarenal saccular aneurysm and there was a concern that this may have ruptured and so a CT a was done which demonstrated an intact infrarenal saccular aneurysm measuring 5.5 cm. She was admitted to the intensive care unit started on pressor agents and yesterday we were called because she was noted to be hypotensive at some point. She was given intravenous fluids and pressor agents. An echocardiogram done demonstrated preserved ejection fraction. At the time I saw her her blood pressure was back up to normal. EKG demonstrated sinus rhythm and sinus tachycardia with no acute changes. [facility] Medical History Infection and inflammatory reaction due to other internal joint prosthesis, initial encounter Insomnia MRSA (methicillin resistant staph aureus) culture positive Wears glasses Post-menopausal Depression Anxiety Walker as ambulation aid Ambulates with cane Arthritis High cholesterol Back pain Restless legs Former smoker Shortness of breath on exertion History of pain when walking History of edema Hypertension Home Medications ?Medication ?Instructions ?Recorded ?Last Taken ?Type losartan 50 mg tablet 50 mg PO BID BP 09/19/14 09/13/24 History melatonin 5 mg tablet 10 mg PO QHS INSOMNIA 09/19/14 Unknown History bupropion HCl 300 mg 24 hr tablet, 150 mg PO DAILY DEPRESSION 06/11/20 09/13/24 History extended release gabapentin 600 mg tablet 600 mg PO QHS SLEEP 06/11/20 Unknown History mirtazapine 15 mg tablet 15 mg PO QHS INSOMNIA 06/24/20 06/23/20 20:00 History duloxetine 30 mg capsule,delayed 30 mg PO DAILY DEPRESSION 09/11/24 09/13/24 History release (Cymbalta) pramipexole 0.5 mg tablet 0.5 mg PO DINNER RLS 09/11/24 Unknown History aspirin 81 mg chewable tablet 81 mg PO BID blood thinner #0 tabs 09/17/24 Unknown Rx loperamide 2 mg capsule 2 mg PO Q2H PRN PRN DIARRHEA #0 09/17/24 Unknown Rx caps albuterol sulfate 90 mcg/actuation 2 inh inhalation Q4H PRN shortness 03/18/25 Unknown History aerosol inhaler of breath or wheezing carvedilol 3.125 mg tablet 3.125 mg PO BID 03/18/25 Unknown History doxycycline hyclate 100 mg capsule 100 mg PO BID abx 03/18/25 Unknown History indapamide 2.5 mg tablet 2.5 mg PO DAILY diuretic 03/18/25 Unknown History naproxen sodium 220 mg tablet 440 mg PO DAILY PRN pain 03/18/25 Unknown History potassium citrate 10 mEq (1,080 10 meq PO DAILY 03/18/25 Unknown History mg) tablet,extended release pramipexole 1 mg tablet 1 mg PO QHS restless leg 03/18/25 Unknown History spironolactone 50 mg tablet 50 mg PO DAILY 03/18/25 Unknown History Allergy/AdvReac Type Severity Reaction Status Date / Time Penicillins Allergy Anaphylaxis Verified 03/18/25 14:54 Surgical History History of reverse total replacement of right shoulder joint History of surgery Hx of colonoscopy Hx of right cataract extraction Hx of left cataract extraction History of partial colectomy Hx of appendectomy Hx of total hip arthroplasty Hx of total shoulder replacement Hx of lumbar discectomy Hx of total shoulder replacement Hx of total hip arthroplasty Social History household members: none Smoking Status: Former smoker alcohol intake: never substance use type: does not use ROS Constitutional Constitutional: Denies fever(s) or weight loss Eyes Eyes: Reports systems reviewed and no addt'l complaints, except as documented ENT HEENT: Reports systems reviewed and no addt'l complaints, except as documented Cardiovascular Cardiovascular: Denies chest pain at rest, chest pain with activity, dyspnea at rest, dyspnea on exertion, edema, palpitations or paroxysmal nocturnal dyspnea Respiratory/Chest Respiratory/Chest: Denies dyspnea on exertion, productive cough, shortness of breath at rest or shortness of breath with exertion Gastrointestinal Gastrointestinal: Denies change in bowel habits, nausea, vomiting or weight changes Genitourinary Genitourinary: Denies difficulty urinating Musculoskeletal Musculoskeletal: Denies joint stiffness or muscle weakness Integumentary Integumentary: Denies lesions Neurologic Neurologic: Denies dizziness or syncope Psychiatric Psychiatric: Denies anxiety Endocrine Endocrinology: Denies excessive sweating or fatigue Hematologic/Lymphatic Hematologic/Lymphatic: Denies anemia Allergic/Immunologic Allergic/Immunologic: Denies seasonal rhinorrhea Physical Exam Const alert, oriented x3 and no apparent distress General Appearance: cooperative HEENT hearing grossly normal bilaterally Head and Scalp: atraumatic Eyes EOMs intact bilaterally Neck General: normal visual inspection Chest inspection of chest normal and palpation of chest normal Resp normal respiratory effort Auscultation: clear to auscultation bilaterally Cardio regular rate, regular rhythm, S1 normal heart sound and S2 normal heart sound Jugular Venous Distention: JVD GI normal to inspection, nondistended, normoactive bowel sounds Extremity normal capillary refill and no pedal edema Peripheral Pulses: Yes pulses 2+ throughout and femoral pulses present Skin no rashes or lesions noted Neuro oriented x3 and CN's II-XII intact bilaterally Psych Appearance: grossly normal and appropriate Objective Data Vital Signs: Vital Signs Temp Pulse Resp BP Pulse Ox O2 Del Method O2 Flow Rate 99.1 F 99 14 124/78 H 93 Mechanical Ventilator 45 03/20/25 06:00 03/20/25 06:49 03/20/25 06:49 03/20/25 06:00 03/20/25 06:49 03/20/25 06:49 03/20/25 06:00 FiO2 25 03/20/25 06:49 Oxygen Flow Rate (L/min) 45 Oxygen Delivery Method Mechanical Ventilator Weight: 251 lb 5.231 oz Body Mass Index (BMI) 39.3 Intake & Output: Intake and Output for Last 24 Hours 03/18/25 03/19/25 03/20/25 23:59 23:59 23:59 Intake Total 1713.37 / 1720.75 4211.40 / 4285.70 601.09 / 601.09 Output Total 1100 / 1100 2975 / 2975 1675 / 1675 Balance 613.37 / 620.75 1236.40 / 1310.70 -1073.91 / -1073.91 Lab / Micro Data 03/20/25 04:24 03/20/25 04:24 Labs: Laboratory Results - last 24 hr 03/18/25 03:50: Urine Osmolality 437 03/18/25 03:58: Total Creatine Kinase 137, Triglycerides 90 03/19/25 08:15: Lactic Acid 1.3 03/20/25 04:24: WBC 13.3 H, RBC 5.03, Hgb 14.9, Hct 44.0, MCV 87.5, MCH 29.6, MCHC 33.9, RDW Std Deviation 46.7 H, RDW Coeff of Terry 14.9 H, Plt Count 221, MPV 10.3, Immature Gran % (Auto) 0.700, Neut % (Auto) 90.9 H, Lymph % (Auto) 4.1 L, [place] % (Auto) 4.1, Eos % (Auto) 0.0, Baso % (Auto) 0.2, Absolute Neuts (auto) 12.1 H, Absolute Lymphs (auto) 0.55 L, Nucleated RBC % 0, Sodium 139, Potassium 3.6, Chloride 95 L, Carbon Dioxide 31.0, Anion Gap 13, BUN 38 H, Creatinine 1.44 H, Estim Creat Clear Calc 43.32 L, Est GFR (MDRD) Non-Af 38 L, BUN/Creatinine Ratio 26.4 H, Glucose 129 H, Calcium 9.0 Micro: Microbiology 03/18/25 19:14 Sputum, Induced/Lukens Gram Stain - Final 03/19/25 08:25 Gastric Fluid/Contents Gastric Occult Blood - Final Occult Blood Positive ABG Data ABG results: ABG 03/19/25 08:13 Specimen Type ART Sample Site Art Line pH 7.46 H Bicarbonate Actual 34.3 H Total CO2 36 Base Excess 10 H O2 Saturation 93 L O2 % 35.0 ABG pCO2 48.5 H ABG pO2 63 L Respiration Rate 14 O2 Delivery Device Adult Vent Vent Mode AC Tidal Volume 400.0 POC PEEP 5 Cardiology Labs/Tests 03/18/25 03:58: Triglycerides 90 03/19/25 08:13: pH 7.46 H, Bicarbonate Actual 34.3 H, Base Excess 10 H, O2 Saturation 93 L, ABG pCO2 48.5 H, ABG pO2 63 L 03/19/25 08:15: Lactic Acid 1.3 03/20/25 04:24: WBC 13.3 H, RBC 5.03, Hgb 14.9, Hct 44.0, MCV 87.5, MCH 29.6, MCHC 33.9, Plt Count 221, MPV 10.3, Immature Gran % (Auto) 0.700, Neut % (Auto) 90.9 H, Lymph % (Auto) 4.1 L, [place] % (Auto) 4.1, Eos % (Auto) 0.0, Baso % (Auto) 0.2, Absolute Neuts (auto) 12.1 H, Nucleated RBC % 0, Sodium 139, Potassium 3.6, Chloride 95 L, Carbon Dioxide 31.0, Anion Gap 13, BUN 38 H, Creatinine 1.44 H, Est GFR (MDRD) Non-Af 38 L, BUN/Creatinine Ratio 26.4 H, Glucose 129 H, Calcium 9.0 Rhythm: EKG: ECHO: Stress Test: Cardiac Cath: PCI: CT Surgery: Holter monitor: EPS: PPM: CXR: Chest CT Scan: Radiography Diagnostic Testing: Radiology Impression Echocardiogram 03/19/25 01:33 Interpretation Summary Normal LV size. Left ventricular systolic function is hyperdynamic. The left ventricular ejection fraction is 75 %. Small (<1.0 cm) pericardial effusion. There are no echocardiographic indications of cardiac tamponade. Moderate concentric left ventricular hypertrophy. Ordering Physician: Wally Waddell Performed By: Xavier Castano RCS E Risk Score for UA/STEMI Assesmment (YES = 1) Risk Stratification Applicable: No
--- NOTE | 2025-03-20 07:27 | PCM.PN.INT ---
Assessment & Plan Assessment/Plan (1) Shock: PLAN: Plan RECOMMENDATIONS: 1. Proceed with a trial of extubation this morning. Once extubated, wean supplemental oxygen to maintain saturations at or above 90%. 2. Continue to wean vasopressor support as tolerated. 3. Additional fluid resuscitation as ordered. 4. Continue empiric antimicrobial therapy. 5. Continue stress dose steroids. Will begin to wean once the vasopressor support has been discontinued. 6. Continue appropriate DVT prophylaxis. 7. Bedside swallow evaluation with dietary advancement as tolerated. 8. PT/OT to work with the patient. IMPRESSIONS: 1. Undifferentiated shock Unclear precipitating etiology. Septic and hypovolemic etiologies seem to be the most probable. However, no definitive source of infection has yet to be identified. Cultures have been negative to date. With supportive care, including IV fluid resuscitation and vasopressor support, the patient has improved clinically. The patient has been nearly weaned off of Levophed. Will continue to wean as tolerated to maintain mean arterial pressure at or above 65 mmHg. In the interim, given the hyperdynamic LV noted on echo, will administer additional IV fluid resuscitation. Will plan to continue stress dose steroids until the patient has been weaned off of Levophed completely. In light of the patient's history of prosthetic joint infection, CT imaging of the upper extremity is pending. Echocardiogram revealed intact, normal systolic function without any significant valvular abnormalities. 2. Acute respiratory failure with hypoxemia and hypercapnia Potentially related to increased metabolic demand of #1. No discernible underlying pulmonary pathology was identified on imaging. Again, with supportive care, including invasive mechanical ventilatory support, the patient has improved clinically. Her FiO2 requirements are minimal on the ventilator. She is alert and able to follow commands appropriately. The patient ultimately passed a spontaneous breathing trial and will be extubated this morning. Once extubated, wean supplemental oxygen to maintain saturations at or above 90%. Encourage incentive spirometer use and mobilize patient as tolerated. 3. Acute kidney injury Most likely prerenal in etiology in the setting of #1. Creatinine has improved with volume expansion and stabilization of hemodynamics. Continue to monitor urine output. No current indication for renal replacement therapy. 4. Encephalopathy Resolved. Most likely toxic/metabolic in nature in the setting of #1. CT head was unremarkable. TSH is within normal limits. Continue current supportive care. 5. History of prosthetic joint infection/history of AAA/restless leg syndrome/depression/anxiety/obesity Complicates care, management, recovery and prognosis. Continue supportive care as noted above. PT/OT to work with the patient. Bedside swallow evaluation with dietary advancement as tolerated. TIME: 40 minutes of critical care time, independent of procedures, was spent addressing the patient's undifferentiated shock, acute respiratory failure, acute kidney injury, encephalopathy, review of all data and collaboration with the care team. Subjective Subjective The patient was seen and examined at the bedside this morning. Events from the last 24 hours have been reviewed. The patient is currently afebrile and hemodynamically stable on low-dose Levophed. She has done well overnight. Ventilator requirements are minimal this morning. The patient did well with a spontaneous awakening trial. She is alert and able to follow commands appropriately. Accordingly, the patient completed a spontaneous breathing trial, which she completed without complication. Accordingly, the patient was extubated. White blood cell count this morning was noted to be 13,000. Chemistry profile was notable for a creatinine of 1.4, which has improved from yesterday. Objective Data Objective Data The patient's most recent lab work, culture data and imaging studies have all been personally reviewed. Gastric occult blood was positive. Infectious workup to date has been largely unrevealing. Vital Signs: Vital Signs Temp Pulse Resp BP Pulse Ox O2 Del Method O2 Flow Rate 99 F 92 14 143/75 H 95 Mechanical Ventilator 4 03/20/25 07:00 03/20/25 07:00 03/20/25 07:00 03/20/25 07:15 03/20/25 07:00 03/20/25 07:00 03/18/25 17:48 FiO2 25 03/20/25 07:00 Oxygen Flow Rate (L/min) 4 Oxygen Delivery Method Mechanical Ventilator Weight: 251 lb 5.231 oz Body Mass Index (BMI) 39.3 Intake & Output: Intake and Output for Last 24 Hours 03/18/25 03/19/25 03/20/25 23:59 23:59 23:59 Intake Total 1713.37 / 1720.75 4211.40 / 4285.70 662.26 / 662.26 Output Total 1100 / 1100 2975 / 2975 1675 / 1675 Balance 613.37 / 620.75 1236.40 / 1310.70 -1012.74 / -1012.74 Lab / Micro Data Attestation: I reviewed the patient's lab results. 03/20/25 04:24 03/20/25 04:24 Labs: Laboratory Results - last 24 hr 03/18/25 03:50: Urine Osmolality 437 03/18/25 03:58: Total Creatine Kinase 137, Triglycerides 90 03/19/25 08:15: Lactic Acid 1.3 03/20/25 04:24: WBC 13.3 H, RBC 5.03, Hgb 14.9, Hct 44.0, MCV 87.5, MCH 29.6, MCHC 33.9, RDW Std Deviation 46.7 H, RDW Coeff of Terry 14.9 H, Plt Count 221, MPV 10.3, Immature Gran % (Auto) 0.700, Neut % (Auto) 90.9 H, Lymph % (Auto) 4.1 L, [place] % (Auto) 4.1, Eos % (Auto) 0.0, Baso % (Auto) 0.2, Absolute Neuts (auto) 12.1 H, Absolute Lymphs (auto) 0.55 L, Nucleated RBC % 0, Sodium 139, Potassium 3.6, Chloride 95 L, Carbon Dioxide 31.0, Anion Gap 13, BUN 38 H, Creatinine 1.44 H, Estim Creat Clear Calc 43.32 L, Est GFR (MDRD) Non-Af 38 L, BUN/Creatinine Ratio 26.4 H, Glucose 129 H, Calcium 9.0 Micro: Microbiology 03/18/25 19:14 Sputum, Induced/Lukens Gram Stain - Final 03/19/25 08:25 Gastric Fluid/Contents Gastric Occult Blood - Final Occult Blood Positive 03/18/25 20:15 Mucosa - Nasopharyngeal Respiratory Panel (PCR) - Final ABG Data ABG results: ABG 03/19/25 08:13 Specimen Type ART Sample Site Art Line pH 7.46 H Bicarbonate Actual 34.3 H Total CO2 36 Base Excess 10 H O2 Saturation 93 L O2 % 35.0 ABG pCO2 48.5 H ABG pO2 63 L Respiration Rate 14 O2 Delivery Device Adult Vent Vent Mode AC Tidal Volume 400.0 POC PEEP 5 Radiography Diagnostic Testing: Radiology Impression Echocardiogram 03/19/25 01:33 Interpretation Summary Normal LV size. Left ventricular systolic function is hyperdynamic. The left ventricular ejection fraction is 75 %. Small (<1.0 cm) pericardial effusion. There are no echocardiographic indications of cardiac tamponade. Moderate concentric left ventricular hypertrophy. Ordering Physician: Wally Waddell Performed By: Xavier Castano RCS Physical Exam Const Constitutional Narrative: Intubated and mechanically ventilated. Tolerating spontaneous mode of mechanical ventilation. HEENT normocephalic and head/scalp atraumatic Mouth: endotracheal tube in place and OG tube in place Eyes PERRL, EOMs intact bilaterally and conjunctivae normal Neck supple General: trachea midline Chest inspection of chest normal Resp normal respiratory effort Auscultation: Negative for rales, rhonchi or wheezes Cardio regular rate and regular rhythm GI normal to inspection, nondistended, normoactive bowel sounds Extremity no clubbing, cyanosis or edema Skin no rashes or lesions noted Neuro Neuro Narrative: Currently off of all sedation. Alert and able to follow commands appropriately. Psych cooperative Charges/Coding Procedures Hospitalists Procedures: [id number] Critical Care 1st Hr
--- NOTE | 2025-03-20 09:45 | CT_ITS ---
PROCEDURE: EXTREMITY UPPER WITHOUT CONTRA 03/20/2025 REASON FOR EXAM: L SHOULDER INFECTION TECHNIQUE: Procedure Code: CTEUWO Modality: CT Procedure: EXTREMITY UPPER WITHOUT CONTRA Coronal and Sagittal reconstruction series were provided. One or more dose reduction techniques were used (e.g., Automated exposure control, adjustment of the mA and/or kV according to patient size, use of iterative reconstruction technique. RADIATION DOSE SUMMARY: CTDlvol: 41.97 mGy DLP: 1287.59 mGycm COMPARISON: Prior radiographs dated March 19, 2025. FINDINGS: The patient is status post left reverse shoulder replacement. There is good alignment. The hardware is intact. The visualized bony structures are unremarkable. No evidence of fracture. No focal fluid collection or abscess collection seen. Mild increased markings in the posterior aspect of the left upper lobe. CT/Extremity Upper without Contra IMPRESSION: Status post left reverse shoulder replacement. There is good alignment. Reading Location: [place] [id number]
[2025-03-20] MEDS: Lactated Ringers 500 ML 999 ML IV ×2 (10:13→10:58)
--- NOTE | 2025-03-20 10:35 | PCM.CONS.GEN ---
Assessment & Plan Assessment/Plan (1) Shock: PLAN: Unclear cause. ELVIA improved. Now off pressors and vent. Fever overnight. Bcx, sputum cx, and ucx neg so far. Stool showed blood. Ordered CT shoulder given 08/2024 MRSA/MSSA L shoulder PJI; reports compliance with suppressive po doxy as outpt. CT showed no abscess, exam is benign. On empiric vanc/eddie. Will follow, thank you (2) Acute on chronic respiratory failure with hypoxia and hypercapnia: (3) Infection of prosthetic shoulder joint: HPI Consult Data Date of Consult: 03/20/25 HPI Narrative Reason for Consultation: shock HPI Narrative: OSCAR ROMAN, is a 75 F with MSSA/MRSA L shoulder PJI 08/2024, treated with iv vanc and rifampin, now continues on suppressive po doxy. Shoulder has been doing fine, no pain/redness/swelling. Reports increased dyspnea over past 1.5 weeks with mild dry cough. No fever, chills, sweats, abd pain, dysuria, rash, n/v/d. Had acute onset altered mental status, hypoxia, hypotension, hypothermia. Taken to ED, admitted to icu on vent with vanc/meropenem. Now off vent and off pressors. Family at bedside provided additional history. No recent sick contacts or travel. Full ROS performed and neg except as noted above. [facility] Medical History Infection and inflammatory reaction due to other internal joint prosthesis, initial encounter Insomnia MRSA (methicillin resistant staph aureus) culture positive Wears glasses Post-menopausal Depression Anxiety Walker as ambulation aid Ambulates with cane Arthritis High cholesterol Back pain Restless legs Former smoker Shortness of breath on exertion History of pain when walking History of edema Hypertension Home Medications ?Medication ?Instructions ?Recorded ?Last Taken ?Type losartan 50 mg tablet 50 mg PO BID BP 09/19/14 09/13/24 History melatonin 5 mg tablet 10 mg PO QHS INSOMNIA 09/19/14 Unknown History bupropion HCl 300 mg 24 hr tablet, 150 mg PO DAILY DEPRESSION 06/11/20 09/13/24 History extended release gabapentin 600 mg tablet 600 mg PO QHS SLEEP 06/11/20 Unknown History mirtazapine 15 mg tablet 15 mg PO QHS INSOMNIA 06/24/20 06/23/20 20:00 History duloxetine 30 mg capsule,delayed 30 mg PO DAILY DEPRESSION 09/11/24 09/13/24 History release (Cymbalta) pramipexole 0.5 mg tablet 0.5 mg PO DINNER RLS 09/11/24 Unknown History aspirin 81 mg chewable tablet 81 mg PO BID blood thinner #0 tabs 09/17/24 Unknown Rx loperamide 2 mg capsule 2 mg PO Q2H PRN PRN DIARRHEA #0 09/17/24 Unknown Rx caps albuterol sulfate 90 mcg/actuation 2 inh inhalation Q4H PRN shortness 03/18/25 Unknown History aerosol inhaler of breath or wheezing carvedilol 3.125 mg tablet 3.125 mg PO BID 03/18/25 Unknown History doxycycline hyclate 100 mg capsule 100 mg PO BID abx 03/18/25 Unknown History indapamide 2.5 mg tablet 2.5 mg PO DAILY diuretic 03/18/25 Unknown History naproxen sodium 220 mg tablet 440 mg PO DAILY PRN pain 03/18/25 Unknown History potassium citrate 10 mEq (1,080 10 meq PO DAILY 03/18/25 Unknown History mg) tablet,extended release pramipexole 1 mg tablet 1 mg PO QHS restless leg 03/18/25 Unknown History spironolactone 50 mg tablet 50 mg PO DAILY 03/18/25 Unknown History Allergy/AdvReac Type Severity Reaction Status Date / Time Penicillins Allergy Anaphylaxis Verified 03/18/25 14:54 Surgical History History of reverse total replacement of right shoulder joint History of surgery Hx of colonoscopy Hx of right cataract extraction Hx of left cataract extraction History of partial colectomy Hx of appendectomy Hx of total hip arthroplasty Hx of total shoulder replacement Hx of lumbar discectomy Hx of total shoulder replacement Hx of total hip arthroplasty Social History household members: none Smoking Status: Former smoker alcohol intake: never substance use type: does not use Physical Exam Const alert, oriented x3 and no apparent distress General Appearance: cooperative HEENT normocephalic and head/scalp atraumatic Eyes PERRL and EOMs intact bilaterally Neck supple and No nodes Resp clear to auscultation bilaterally Auscultation: diminished lung sounds Cardio regular rate, regular rhythm and no murmurs GI soft to palpation, non-tender and non-distended Extremity Extremity Narrative: L shoulder no swelling/redness/warmth/tenderness General Extremity: edema Skin no rashes or lesions noted Neuro CN's II-XII intact bilaterally Lab / Micro Data Attestation: I reviewed the patient's lab results. 03/20/25 04:24 03/20/25 04:24 Labs: Laboratory Results - last 24 hr 03/20/25 04:24: WBC 13.3 H, RBC 5.03, Hgb 14.9, Hct 44.0, MCV 87.5, MCH 29.6, MCHC 33.9, RDW Std Deviation 46.7 H, RDW Coeff of Terry 14.9 H, Plt Count 221, MPV 10.3, Immature Gran % (Auto) 0.700, Neut % (Auto) 90.9 H, Lymph % (Auto) 4.1 L, [place] % (Auto) 4.1, Eos % (Auto) 0.0, Baso % (Auto) 0.2, Absolute Neuts (auto) 12.1 H, Absolute Lymphs (auto) 0.55 L, Nucleated RBC % 0, Sodium 139, Potassium 3.6, Chloride 95 L, Carbon Dioxide 31.0, Anion Gap 13, BUN 38 H, Creatinine 1.44 H, Estim Creat Clear Calc 43.32 L, Est GFR (MDRD) Non-Af 38 L, BUN/Creatinine Ratio 26.4 H, Glucose 129 H, Calcium 9.0 Micro: Microbiology 03/18/25 15:24 Urine, Catheterized Urine Culture - Preliminary Culture exhibits no growth. 03/18/25 19:14 Sputum, Induced/Lukens Gram Stain - Final 03/18/25 19:14 Sputum, Induced/Lukens Respiratory Culture - Preliminary Appears to be normal respiratory talya. Further studies to follow. 03/19/25 08:25 Gastric Fluid/Contents Gastric Occult Blood - Final Occult Blood Positive Imaging Radiology Impression Echocardiogram 03/19/25 01:33 Interpretation Summary Normal LV size. Left ventricular systolic function is hyperdynamic. The left ventricular ejection fraction is 75 %. Small (<1.0 cm) pericardial effusion. There are no echocardiographic indications of cardiac tamponade. Moderate concentric left ventricular hypertrophy. Ordering Physician: Wally Waddell Performed By: Xavier Castano RCS Upper Extremity CT 03/20/25 09:45 IMPRESSION: Status post left reverse shoulder replacement. There is good alignment. Reading Location: [facility]-
[2025-03-20] MEDS: Pantoprazole Sodium 40 MG in 0.9% Normal Saline (100mL MB+) 100 ML 300 MG IV (11:13)
[2025-03-20] MEDS: Meropenem 1 GM in 0.9% Normal Saline (100mL MB+) 100 ML IV ×2 (11:14→20:41)
--- NOTE | 2025-03-20 13:52 | PN_ITS ---
Subjective Subjective Patient seen and examined. She felt much better and had been extubated. She had her cousin and a friend with her. She had no active complaints and denied any fever, chills, cough, chest pain, palpitations, dizziness, nausea, vomiting or any other symptoms. Review of systems is otherwise negative. She is on 2L of oxygen by nasal canula. Objective Data Objective Data Vital Signs: Vital Signs Temp Pulse Resp BP Pulse Ox O2 Del Method O2 Flow Rate 99.4 F H 91 14 94/74 98 Nasal Cannula 2 03/20/25 10:00 03/20/25 13:00 03/20/25 13:00 03/20/25 13:00 03/20/25 13:00 03/20/25 13:00 03/20/25 13:00 FiO2 25 03/20/25 12:00 Oxygen Flow Rate (L/min) 2 Oxygen Delivery Method Nasal Cannula Weight: 251 lb 5.231 oz Body Mass Index (BMI) 39.3 Intake & Output: Intake and Output for Last 24 Hours 03/18/25 03/19/25 03/20/25 23:59 23:59 23:59 Intake Total 1713.37 / 1720.75 4211.40 / 4285.70 1776.36 / 1776.36 Output Total 1100 / 1100 2975 / 2975 2175 / 2175 Balance 613.37 / 620.75 1236.40 / 1310.70 -398.64 / -398.64 Lab / Micro Data 03/20/25 04:24 03/20/25 04:24 Labs: Laboratory Results - last 24 hr 03/20/25 04:24: WBC 13.3 H, RBC 5.03, Hgb 14.9, Hct 44.0, MCV 87.5, MCH 29.6, MCHC 33.9, RDW Std Deviation 46.7 H, RDW Coeff of Terry 14.9 H, Plt Count 221, MPV 10.3, Immature Gran % (Auto) 0.700, Neut % (Auto) 90.9 H, Lymph % (Auto) 4.1 L, [place] % (Auto) 4.1, Eos % (Auto) 0.0, Baso % (Auto) 0.2, Absolute Neuts (auto) 12.1 H, Absolute Lymphs (auto) 0.55 L, Nucleated RBC % 0, Sodium 139, Potassium 3.6, Chloride 95 L, Carbon Dioxide 31.0, Anion Gap 13, BUN 38 H, Creatinine 1.44 H, Estim Creat Clear Calc 43.32 L, Est GFR (MDRD) Non-Af 38 L, BUN/Creatinine Ratio 26.4 H, Glucose 129 H, Calcium 9.0 Micro: Microbiology 03/18/25 15:18 Blood Culture (Wb) - Anticubital Left Blood Culture - Preliminary No growth in 48 hours. 03/18/25 15:18 Blood Culture (Wb) - Anticubital Right Blood Culture - Preliminary No growth in 48 hours. 03/18/25 15:24 Urine, Catheterized Urine Culture - Preliminary Culture exhibits no growth. 03/18/25 19:14 Sputum, Induced/Lukens Gram Stain - Final 03/18/25 19:14 Sputum, Induced/Lukens Respiratory Culture - Preliminary Appears to be normal respiratory talya. Further studies to follow. 03/19/25 08:25 Gastric Fluid/Contents Gastric Occult Blood - Final Occult Blood Positive 03/18/25 20:15 Mucosa - Nasopharyngeal Respiratory Panel (PCR) - Final Radiography Diagnostic Testing: Radiology Impression Upper Extremity CT 03/20/25 09:45 IMPRESSION: Status post left reverse shoulder replacement. There is good alignment. Reading Location: [place] [id number] Physical Exam Const oriented x3 and no apparent distress Constitutional Narrative: class II obesity General Appearance: cooperative HEENT normocephalic and head/scalp atraumatic Eyes EOMs intact bilaterally Neck supple Lymph Lymphatic: no lymphedema noted Resp Resp Narrative: Moderately diminished breath sounds bibasilarly. No wheezes, few crackles bilaterally. on 2L of oxygen Cardio regular rate, regular rhythm, S1 normal heart sound, S2 normal heart sound and no murmurs GI normal to inspection, nondistended, normoactive bowel sounds, soft to palpation and non-tender GI Narrative: Obese abdomen Extremity no clubbing, cyanosis or edema and no calf tenderness General Extremity: no tenderness to palpation of joints or extremities Skin General Skin Exam: no breakdown Neuro CN's II-XII intact bilaterally and no focal motor deficits Neuro Narrative: I Motor Exam: general weakness Psych thought process normal and cooperative Appearance: appropriate Assessment & Plan Assessment/Plan (1) Acute respiratory failure with hypoxia and hypercapnia: (2) Shock: PLAN: Plan #Undifferentiated shock * Etiology is not clear. She was admitted with altered mental status and hypotension as well as acute renal failure. * She was unresponsive to fluids so central line was placed and she was started on pressors. She was also in respiratory distress so was intubated * CT chest abdomen and pelvis showed only infrarenal saccular aortic aneurysm measuring 3.8 x 4.5 x 5.5 cm * CTA also did not show any evidence of rupture of the saccular aortic aneurysm * Blood and urine cultures pending. Critical care on board. On broad-spectrum antibiotics. * now off steroids. * Limited echo done showed normal ventricular size with moderate concentric left ventricular hypertrophy and hyperdynamic left ventricular systolic function with left ventricular EF of 75% and no regional wall motion abnormality seen * #Acute hypoxic and hypercapnic respiratory failure * Extubated and now on 2 L of oxygen. * Breathing treatments and bronchodilators. Titrate oxygen to maintain saturation above 90%. #Acute renal failure: Resolving. Creatinine is down to 1.44. Day catheter in place. Monitor intake and output. Fluid restriction to 1500 cc daily. #History of left shoulder prosthetic infection: * On long-term antibiotics for this. Continue the antibiotics * Right shoulder x-ray showed lucencies in the soft tissues of the proximal left arm and findings can be better evaluated by CT exam if clinically warranted with exam significantly limited by patient's body habitus and positioning * CT of the shoulder done today showed evidence of s/p left reverse shoulder replacement with good alignment. No evidence of infection. #Heart failure preserved EF: Has EF of 70% and stage I diastolic dysfunction per 2D echo done on 03/04/2025. Limited echo ordered. #Infrarenal aneurysm * CTA of the abdomen showed the infrarenal saccular aortic aneurysm measuring 3.8 x 4.5 x 5.5 cm as above. * Follow-up with PCP for further workup and referral on outpatient basis as needed * #Restless leg syndrome: Oral meds on hold currently. #Hypertension: BP meds on hold due to hypotension and shock #Depression and anxiety: Meds also on hold as she is intubated DVT prophylaxis: SCDs, Lovenox Charges/Coding Visit Charges Inpatient E&M: 10578 Subs Hosp L2
--- NOTE | 2025-03-20 16:11 | CASEMGMT ---
SW Assessment: Face to Face with pt for initial transition planning/care coordination assessment. SW introduced self and role at [facility], pt voices understanding and consents to assessment. Care providers, pharmacy, and demographics verified/updated. Admitting Dx: undifferentiated shock, acute hypoxic, hypercapnic PCP: Kamar Grimes Specialists: Mao (ortho) Preferred Pharmacy: [facility] Insurance: [facility] Dual Prescription Benefit: yes LNOK: Pattie- granddaughter and POA, Estee- granddaughter Living Arrangements: Pt lives home alone in an apartment with a 4 in step with a handrail to enter. Pt has a friend from [employer] that assists with cleaning and laundry. Pt has a shower chair, cane, wheeled walker, and rollator. Pt reports grab bars in bathroom. Transportation: Pt drives self, although recently had shoulder surgery and has not been driving during rehab from that. DME: cane, rollator, walker, shower chair HHC/SNF: Previously at TCU and d/c with [facility]. Prefers to return to TCU; declines a list at this time. SW completed referral to TCU. Pt reports she feels a short stay for therapy will be beneficial prior to return home. Pt reports plan is to return home after rehab. SW remains available to follow for discharge planning. GREER Chacko
[2025-03-20] MEDS: Norepinephrine 8 MG in 0.9% Normal Saline (250mL Bag) 242 ML 9.4 MG CONT INF (18:35)
[2025-03-20 20:55] LABS: Vancomycin, Trough Level 15.6 ug/mL (5.0-15.0)
--- NOTE | 2025-03-20 21:22 | PCM.RX.CS ---
Consult Antibiotic Management Pharmacy has been consulted to manage selected antibiotic: Vancomycin Type of Intervention Type of Consult: Follow-up Labs Labs: Sodium 139 mmol/L (133-145) 03/20/25 04:24 Potassium 3.6 mmol/L (3.3-5.1) 03/20/25 04:24 Chloride 95 mmol/L (98-108) L 03/20/25 04:24 Carbon Dioxide 31.0 mmol/L (21.0-32.0) 03/20/25 04:24 Anion Gap 13 (5-15) 03/20/25 04:24 BUN 38 mg/dL (4-19) H 03/20/25 04:24 Creatinine 1.44 mg/dL (0.70-1.20) H 03/20/25 04:24 Est GFR (MDRD) Non-Af 38 (>60) L 03/20/25 04:24 BUN/Creatinine Ratio 26.4 RATIO (10-20) H 03/20/25 04:24 Glucose 129 mg/dL (70-99) H 03/20/25 04:24 Vancomycin Trough 15.6 ug/mL (5.0-15.0) H 03/20/25 20:05 Microbiology Microbiology: Microbiology 03/18/25 15:18 Blood Culture (Wb) - Anticubital Left Blood Culture - Preliminary No growth in 48 hours. 03/18/25 15:18 Blood Culture (Wb) - Anticubital Right Blood Culture - Preliminary No growth in 48 hours. 03/18/25 15:24 Urine, Catheterized Urine Culture - Preliminary Culture exhibits no growth. 03/18/25 19:14 Sputum, Induced/Lukens Gram Stain - Final 03/18/25 19:14 Sputum, Induced/Lukens Respiratory Culture - Preliminary Appears to be normal respiratory talya. Further studies to follow. 03/19/25 08:25 Gastric Fluid/Contents Gastric Occult Blood - Final Occult Blood Positive 03/18/25 20:15 Mucosa - Nasopharyngeal Respiratory Panel (PCR) - Final Goal Trough Goal Trough: 15-20 mcg/mL Pharmacy Plan for Drug Dosing Pharmacy Plan for Drug Dosing: Pharmacy Service will continue to monitor and adjust dosing as required. TROUGH 15.6 @ 22 HOURS. NO CHANGES, FOLLOW UP TROUGH IN 2 DAYS Follow-Up Labs Follow-Up Labs: Trough: Vancomycin Date/Time Labs Ordered Labs to be done on [date and time ordered]: 03/22 @ 2100
[2025-03-20] MEDS: Vancomycin HCl 1,250 MG in 0.9% Normal Saline (250mL Bag) 250 ML 167 MG IV (22:05)
[2025-03-21] VITALS (62 sets, daily range): BP systolic 76–158; BP diastolic 45–94; PULSE 76–104; RESP 2–28; TEMP 35.9–37.7; O2SAT 90–100; BMI 39.6
[2025-03-21 06:09] LABS: Hematocrit 39.0 % (37-47); Hemoglobin 12.5 g/dL (12.0-15.0); Immature Granulocytes Count 0.120 X10^3/uL (0.0-0.0); Mean Corp Hgb Conc 32.1 g/dL (32-36); Mean Corpuscular Volume 92.2 fL (81-99); Mean Platelet Vol. 10.1 fl (6.2-12.0); NRBC Flagged by Analyzer 0 % (0-5); POSITIVE DIFFERENTIAL YES; Platelet Count 171 K/mm3 (150-450); RBC Distribution Width CV 15.2 % (11.6-14.6); RBC Distribution Width SD 50.4 fl (35.1-43.9); Red Blood Count 4.23 M/mm3 (4.2-5.4); White Blood Count 15.7 K/mm3 (4.4-11.0)
[2025-03-21 06:31] LABS: Anion Gap 10 (5-15); BUN 41 mg/dL (4-19); BUN/Creat Ratio 30.4 RATIO (10-20); Calcium,Total 8.5 mg/dL (7.6-11.0); Carbon Dioxide 30.8 mmol/L (21.0-32.0); Chloride 100 mmol/L (98-108); Estimated Creatinine Clearance 46.43 ml/min (50-250); Glucose 117 mg/dL (70-99); Potassium 3.5 mmol/L (3.3-5.1)
--- NOTE | 2025-03-21 07:20 | PN.CC_ITS ---
Assessment & Plan Assessment/Plan (1) Shock: PLAN: Plan RECOMMENDATIONS: 1. Supplemental oxygen to maintain saturations at or above 90%. 2. Start scheduled midodrine in hopes that the Levophed can be weaned off completely this morning. 3. Continue antimicrobial therapy, with plans to complete 7 days of treatment duration. 4. Continue stress dose steroids. Will begin to wean once the vasopressor support has been discontinued. 5. Continue appropriate DVT prophylaxis. 6. PT/OT to work with the patient. IMPRESSIONS: 1. Undifferentiated shock Improving. Unclear precipitating etiology. Septic and hypovolemic etiologies seem to be the most probable. However, no definitive source of infection has yet to be identified. Cultures have been negative to date. With supportive care, including IV fluid resuscitation and vasopressor support, the patient has improved clinically. The patient has been nearly weaned off of Levophed. Will continue to wean as tolerated to maintain mean arterial pressure at or above 65 mmHg. In the interim, we will start scheduled midodrine today. Continue stress dose steroids until the patient has been weaned off of Levophed completely. In light of the patient's history of prosthetic joint infection, CT imaging of the upper extremity was obtained but was negative for infection. Echocardiogram revealed intact, normal systolic function without any significant valvular abnormalities. 2. Acute respiratory failure with hypoxemia and hypercapnia Improving. Potentially related to increased metabolic demand of #1. No discernible underlying pulmonary pathology was identified on imaging. Again, with supportive care, including invasive mechanical ventilatory support, the patient has improved clinically. She was ultimately able to be extubated on March 20. Continue to wean supplemental oxygen to maintain saturations at or above 90%. Encourage incentive spirometer use and mobilize patient as tolerated. 3. Acute kidney injury Improving. Most likely prerenal in etiology in the setting of #1. Creatinine has improved with volume expansion and stabilization of hemodynamics. Continue to monitor urine output. No current indication for renal replacement therapy. 4. Encephalopathy Resolved. Most likely toxic/metabolic in nature in the setting of #1. CT head was unremarkable. TSH is within normal limits. Continue current supportive care. 5. History of prosthetic joint infection/history of AAA/restless leg syndrome/depression/anxiety/obesity Complicates care, management, recovery and prognosis. Continue supportive care as noted above. PT/OT to work with the patient. This note was generated with [employer] software. It may contain incorrect words, spelling, and punctuation that were not noted in checking the note before signing. Subjective Subjective The patient was seen and examined at the bedside this morning. Events from the last 24 hours have been reviewed. The patient still remains on low-dose Levophed to maintain hemodynamic stability. However, there is some question as to the accuracy of her cuff pressures. Oxygenation status is stable on 3 L/min. The patient is documented to be overall net +1.6 L for the hospitalization. Creatinine has continued to improve at 1.35. The patient has been tolerant of a diet. Objective Data Objective Data The patient's most recent lab work, culture data and imaging studies have all been personally reviewed. Gastric occult blood was positive. Infectious workup to date has been largely unrevealing. Vital Signs: Vital Signs Temp Pulse Resp BP Pulse Ox O2 Del Method O2 Flow Rate 99 F 92 12 99/75 95 Nasal Cannula 3 03/21/25 04:00 03/21/25 07:00 03/21/25 07:00 03/21/25 07:00 03/21/25 07:00 03/21/25 07:00 03/21/25 07:00 FiO2 25 03/20/25 08:00 Oxygen Flow Rate (L/min) 3 Oxygen Delivery Method Nasal Cannula Weight: 253 lb 8.505 oz Body Mass Index (BMI) 39.6 Intake & Output: Intake and Output for Last 24 Hours 03/19/25 03/20/25 03/21/25 23:59 23:59 23:59 Intake Total 4211.40 / 4285.70 2298.52 / 2300.40 72.46 / 72.46 Output Total 2975 / 2975 2700 / 2700 Balance 1236.40 / 1310.70 -401.48 / -399.60 72.46 / 72.46 Lab / Micro Data Attestation: I reviewed the patient's lab results. 03/21/25 06:00 03/21/25 06:00 Labs: Laboratory Results - last 24 hr 03/20/25 20:05: Vancomycin Trough 15.6 H 03/21/25 06:00: WBC 15.7 H, RBC 4.23, Hgb 12.5, Hct 39.0, MCV 92.2 D, MCH 29.6, MCHC 32.1 D, RDW Std Deviation 50.4 H, RDW Coeff of Terry 15.2 H, Plt Count 171, MPV 10.1, Immature Gran % (Auto) 0.800, Neut % (Auto) 90.8 H, Lymph % (Auto) 3.4 L, [place] % (Auto) 4.6, Eos % (Auto) 0.1, Baso % (Auto) 0.3, Absolute Neuts (auto) 14.3 H, Absolute Lymphs (auto) 0.54 L, Nucleated RBC % 0, Sodium 141, Potassium 3.5, Chloride 100, Carbon Dioxide 30.8, Anion Gap 10, BUN 41 H, Creatinine 1.35 H, Estim Creat Clear Calc 46.43 L, Est GFR (MDRD) Non-Af 41 L, BUN/Creatinine Ratio 30.4 H, Glucose 117 H, Calcium 8.5 Micro: Microbiology 03/18/25 15:18 Blood Culture (Wb) - Anticubital Left Blood Culture - Preliminary No growth in 48 hours. 03/18/25 15:18 Blood Culture (Wb) - Anticubital Right Blood Culture - Preliminary No growth in 48 hours. 03/18/25 15:24 Urine, Catheterized Urine Culture - Preliminary Culture exhibits no growth. 03/18/25 19:14 Sputum, Induced/Lukens Gram Stain - Final 03/18/25 19:14 Sputum, Induced/Lukens Respiratory Culture - Preliminary Appears to be normal respiratory talya. Further studies to follow. 03/19/25 08:25 Gastric Fluid/Contents Gastric Occult Blood - Final Occult Blood Positive 03/18/25 20:15 Mucosa - Nasopharyngeal Respiratory Panel (PCR) - Final ABG Data ABG results: ABG 03/19/25 08:13 Specimen Type ART Sample Site Art Line pH 7.46 H Bicarbonate Actual 34.3 H Total CO2 36 Base Excess 10 H O2 Saturation 93 L O2 % 35.0 ABG pCO2 48.5 H ABG pO2 63 L Respiration Rate 14 O2 Delivery Device Adult Vent Vent Mode AC Tidal Volume 400.0 POC PEEP 5 Radiography Diagnostic Testing: Radiology Impression Upper Extremity CT 03/20/25 09:45 IMPRESSION: Status post left reverse shoulder replacement. There is good alignment. Reading Location: [facility] Physical Exam Const alert, oriented x3 and no apparent distress Constitutional Narrative: Sitting at the bedside eating breakfast. HEENT normocephalic, head/scalp atraumatic and moist oral mucous membranes Eyes PERRL, EOMs intact bilaterally and conjunctivae normal Neck supple General: trachea midline Chest inspection of chest normal Resp normal respiratory effort Auscultation: Negative for rales, rhonchi or wheezes Cardio regular rate and regular rhythm GI normal to inspection, nondistended, normoactive bowel sounds Extremity no clubbing, cyanosis or edema Skin no rashes or lesions noted Neuro oriented x3, CN's II-XII intact bilaterally and moves all extremities Psych cooperative and affect normal Charges/Coding Visit Charges Inpatient E&M: 04952 Subs Hosp L3
[2025-03-21] MEDS: Pantoprazole Sodium 40 MG in 0.9% Normal Saline (100mL MB+) 100 ML 300 MG IV (09:44)
[2025-03-21] MEDS: 0.9% Normal Saline (250mL Bag) 250 ML 15 ML IV (09:45)
[2025-03-21] MEDS: Meropenem 1 GM in 0.9% Normal Saline (100mL MB+) 100 ML IV ×2 (09:45→20:32)
--- NOTE | 2025-03-21 10:19 | PCM.PN.ID ---
Physical Exam Narrative Feeling well, no fever, no cough or dyspnea, no abd pain, no n/v/d. Const alert and no apparent distress General Appearance: cooperative Resp normal air movement and clear to auscultation bilaterally Cardio regular rate and regular rhythm GI soft to palpation, non-tender and non-distended Skin no rashes or lesions noted ID ID: Route of nutrition/ use of supplements: [] Nutritional Intake: [] IV Site: [] Day Catheter: [] Assessment & Plan Assessment/Plan (1) Shock: PLAN: Unclear cause. ELVIA improved. Now off pressors and vent. No fever overnight. Bcx, sputum cx, and ucx neg so far. Stool showed blood. Ordered CT shoulder given 08/2024 MRSA/MSSA L shoulder PJI; reports compliance with suppressive po doxy as outpt. CT showed no abscess, exam is benign. On empiric vanc/eddie. Will stop vanc. Plan at this point is for 5-7 days empiric course of abx then resume home doxycycline po. Will follow (2) Acute on chronic respiratory failure with hypoxia and hypercapnia: (3) Infection of prosthetic shoulder joint:
[2025-03-21] MEDS: 0.9% Saline Lock 10 ML Syringe IV ×3 (11:29→17:35)
--- NOTE | 2025-03-21 12:07 | PN_ITS ---
Subjective Subjective Patient seen and examined. She had no complaints. Comfortably in her chair. Review of systems otherwise negative. She did have to be started again on Levophed drip overnight. She is still low-dose Levophed. Review of systems otherwise negative. Objective Data Objective Data Vital Signs: Vital Signs Temp Pulse Resp BP Pulse Ox O2 Del Method O2 Flow Rate 96.7 F L 80 20 H 104/68 93 Nasal Cannula 2 03/21/25 07:59 03/21/25 11:39 03/21/25 11:39 03/21/25 11:30 03/21/25 11:39 03/21/25 11:39 03/21/25 11:39 FiO2 25 03/20/25 08:00 Oxygen Flow Rate (L/min) 2 Oxygen Delivery Method Nasal Cannula Weight: 253 lb 8.505 oz Body Mass Index (BMI) 39.6 Intake & Output: Intake and Output for Last 24 Hours 03/19/25 03/20/25 03/21/25 23:59 23:59 23:59 Intake Total 4211.40 / 4285.70 2298.52 / 2300.40 310.35 / 310.35 Output Total 2975 / 2975 2700 / 2700 0 / 0 Balance 1236.40 / 1310.70 -401.48 / -399.60 310.35 / 310.35 Lab / Micro Data 03/21/25 06:00 03/21/25 06:00 Labs: Laboratory Results - last 24 hr 03/20/25 20:05: Vancomycin Trough 15.6 H 03/21/25 06:00: WBC 15.7 H, RBC 4.23, Hgb 12.5, Hct 39.0, MCV 92.2 D, MCH 29.6, MCHC 32.1 D, RDW Std Deviation 50.4 H, RDW Coeff of Terry 15.2 H, Plt Count 171, MPV 10.1, Immature Gran % (Auto) 0.800, Neut % (Auto) 90.8 H, Lymph % (Auto) 3.4 L, [place] % (Auto) 4.6, Eos % (Auto) 0.1, Baso % (Auto) 0.3, Absolute Neuts (auto) 14.3 H, Absolute Lymphs (auto) 0.54 L, Nucleated RBC % 0, Sodium 141, Potassium 3.5, Chloride 100, Carbon Dioxide 30.8, Anion Gap 10, BUN 41 H, Creatinine 1.35 H, Estim Creat Clear Calc 46.43 L, Est GFR (MDRD) Non-Af 41 L, BUN/Creatinine Ratio 30.4 H, Glucose 117 H, Calcium 8.5 Micro: Microbiology 03/18/25 15:24 Urine, Catheterized Urine Culture - Final Culture exhibits no growth. 03/18/25 19:14 Sputum, Induced/Lukens Gram Stain - Final 03/18/25 19:14 Sputum, Induced/Lukens Respiratory Culture - Final Mixed normal respiratory talya. No Streptococcus pneumoniae, beta-hemolytic Streptococcus or Staphylococcus aureus isolated. 03/18/25 15:18 Blood Culture (Wb) - Anticubital Left Blood Culture - Preliminary No growth in 48 hours. 03/18/25 15:18 Blood Culture (Wb) - Anticubital Right Blood Culture - Preliminary No growth in 48 hours. 03/19/25 08:25 Gastric Fluid/Contents Gastric Occult Blood - Final Occult Blood Positive 03/18/25 20:15 Mucosa - Nasopharyngeal Respiratory Panel (PCR) - Final Physical Exam Const oriented x3 and no apparent distress Constitutional Narrative: class II obesity General Appearance: cooperative HEENT normocephalic and head/scalp atraumatic Eyes EOMs intact bilaterally Neck supple Lymph Lymphatic: no lymphedema noted Resp Resp Narrative: Moderately diminished breath sounds bibasilarly. No wheezes, few crackles bilaterally. on 2L of oxygen Cardio regular rate, regular rhythm, S1 normal heart sound, S2 normal heart sound and no murmurs GI normal to inspection, nondistended, normoactive bowel sounds, soft to palpation and non-tender GI Narrative: Obese abdomen Extremity no clubbing, cyanosis or edema and no calf tenderness General Extremity: no tenderness to palpation of joints or extremities Skin General Skin Exam: no breakdown Neuro CN's II-XII intact bilaterally and no focal motor deficits Neuro Narrative: I Motor Exam: general weakness Psych thought process normal and cooperative Appearance: appropriate Assessment & Plan Assessment/Plan (1) Acute respiratory failure with hypoxia and hypercapnia: (2) Shock: PLAN: Plan #Undifferentiated shock * Etiology is not clear. She was admitted with altered mental status and hypotension as well as acute renal failure. * She was unresponsive to fluids so central line was placed and she was started on pressors. She was also in respiratory distress so was intubated * CT chest abdomen and pelvis showed only infrarenal saccular aortic aneurysm measuring 3.8 x 4.5 x 5.5 cm * CTA also did not show any evidence of rupture of the saccular aortic aneurysm * Blood and urine cultures pending. Critical care on board. On broad-spectrum antibiotics. * now off steroids. * Limited echo done showed normal ventricular size with moderate concentric left ventricular hypertrophy and hyperdynamic left ventricular systolic function with left ventricular EF of 75% and no regional wall motion abnormality seen * She had to be put back on Levophed again overnight and remains on low dose of Levophed. * wbc today is 17, but she was on steroids. * #Acute hypoxic and hypercapnic respiratory failure * Extubated and now on 2 L of oxygen. * Breathing treatments and bronchodilators. Titrate oxygen to maintain saturation above 90%. #Acute renal failure: Resolving. Creatinine is down to 1.35 today Day catheter in place. Monitor intake and output. Fluid restriction to 1500 cc daily. #History of left shoulder prosthetic infection: * On long-term antibiotics for this. Continue the antibiotics * Right shoulder x-ray showed lucencies in the soft tissues of the proximal left arm and findings can be better evaluated by CT exam if clinically warranted with exam significantly limited by patient's body habitus and positioning * CT of the shoulder done today showed evidence of s/p left reverse shoulder replacement with good alignment. No evidence of infection. #Heart failure preserved EF: Has EF of 70% and stage I diastolic dysfunction per 2D echo done on 03/04/2025. Limited echo ordered. #Infrarenal aneurysm * CTA of the abdomen showed the infrarenal saccular aortic aneurysm measuring 3.8 x 4.5 x 5.5 cm as above. * Follow-up with PCP for further workup and referral on outpatient basis as needed * #Restless leg syndrome: Oral meds on hold currently. #Hypertension: BP meds on hold due to hypotension and shock #Depression and anxiety: Meds also on hold as she is intubated DVT prophylaxis: SCDs, Lovenox Charges/Coding Visit Charges Inpatient E&M: 20635 Subs Hosp L2
--- NOTE | 2025-03-21 12:45 | CASEMGMT ---
Social Work- SW received notice that pt referral accepted at TCU. TCU to start precert when blood pressures are stable and pt has been fever-free without fever reducing medications for 24 hrs; anticipated to be Monday. SW updated pt. Pt appreciative of updates. Plan: TCU;when medically ready and precert obtained GREER [facility]acko
[2025-03-22] VITALS (17 sets, daily range): BP systolic 104–143; BP diastolic 56–76; PULSE 78–99; RESP 15–23; TEMP 36.2–37.3; O2SAT 94–98
[2025-03-22 05:58] LABS: Hematocrit 37.2 % (37-47); Hemoglobin 11.7 g/dL (12.0-15.0); Immature Granulocytes Count 0.070 X10^3/uL (0.0-0.0); Mean Corp Hgb Conc 31.5 g/dL (32-36); Mean Corpuscular Volume 94.7 fL (81-99); Mean Platelet Vol. 10.2 fl (6.2-12.0); NRBC Flagged by Analyzer 0 % (0-5); Platelet Count 146 K/mm3 (150-450); RBC Distribution Width CV 15.0 % (11.6-14.6); RBC Distribution Width SD 52.0 fl (35.1-43.9); Red Blood Count 3.93 M/mm3 (4.2-5.4); White Blood Count 11.9 K/mm3 (4.4-11.0)
[2025-03-22 06:47] LABS: Anion Gap 7 (5-15); BUN 41 mg/dL (4-19); BUN/Creat Ratio 37.1 RATIO (10-20); Calcium,Total 8.6 mg/dL (7.6-11.0); Carbon Dioxide 32.5 mmol/L (21.0-32.0); Chloride 103 mmol/L (98-108); Estimated Creatinine Clearance 56.98 ml/min (50-250); Glucose 122 mg/dL (70-99); Potassium 3.6 mmol/L (3.3-5.1)
[2025-03-22] MEDS: Pantoprazole Sodium 40 MG in 0.9% Normal Saline (100mL MB+) 100 ML 300 MG IV (09:49)
--- NOTE | 2025-03-22 10:15 | PN_ITS ---
Subjective Subjective Patient seen and examined. She had no complaints today and felt better. She is on 2 L of oxygen. She had an uneventful night. Review of systems otherwise negative. Her nurse tells me that patient's granddaughter called and said that had been at problem with mold in patient's apartment and the landlord had informed patient's granddaughter that another tenant in the building had been sent to the hospital due to mold. Patient does not seem to be aware of this and is currently not feeling short of breath. She was actually on room air at time I reviewed her. Labs and vitals reviewed. Objective Data Objective Data Vital Signs: Vital Signs Temp Pulse Resp BP Pulse Ox O2 Del Method O2 Flow Rate 97.3 F L 97 15 118/76 97 Room Air 2 03/22/25 08:07 03/22/25 09:00 03/22/25 09:00 03/22/25 08:07 03/22/25 09:20 03/22/25 09:00 03/22/25 09:20 FiO2 25 03/20/25 08:00 Oxygen Flow Rate (L/min) 2 Oxygen Delivery Method Room Air Weight: 253 lb 8.505 oz Body Mass Index (BMI) 39.6 Intake & Output: Intake and Output for Last 24 Hours 03/20/25 03/21/25 03/22/25 23:59 23:59 23:59 Intake Total 2298.52 / 2300.40 1121.31 / 1121.31 250 / 250 Output Total 2700 / 2700 0 / 0 0 / 0 Balance -401.48 / -399.60 1121.31 / 1121.31 250 / 250 Lab / Micro Data 03/22/25 05:48 03/22/25 05:48 Labs: Laboratory Results - last 24 hr 03/22/25 05:48: WBC 11.9 H, RBC 3.93 L, Hgb 11.7 L, Hct 37.2, MCV 94.7, MCH 29.8, MCHC 31.5 L, RDW Std Deviation 52.0 H, RDW Coeff of Terry 15.0 H, Plt Count 146 L, MPV 10.2, Immature Gran % (Auto) 0.600, Neut % (Auto) 90.1 H, Lymph % (Auto) 5.1 L, [place] % (Auto) 4.1, Eos % (Auto) 0.0, Baso % (Auto) 0.1, Absolute Neuts (auto) 10.8 H, Absolute Lymphs (auto) 0.61 L, Nucleated RBC % 0, Sodium 142, Potassium 3.6, Chloride 103, Carbon Dioxide 32.5 H, Anion Gap 7, BUN 41 H, Creatinine 1.10, Estim Creat Clear Calc 56.98, Est GFR (MDRD) Non-Af 52 L, B UN/Creatinine Ratio 37.1 H, Glucose 122 H, Calcium 8.6 Micro: Microbiology 03/18/25 15:24 Urine, Catheterized Urine Culture - Final Culture exhibits no growth. 03/18/25 19:14 Sputum, Induced/Lukens Gram Stain - Final 03/18/25 19:14 Sputum, Induced/Lukens Respiratory Culture - Final Mixed normal respiratory talya. No Streptococcus pneumoniae, beta-hemolytic Streptococcus or Staphylococcus aureus isolated. 03/18/25 15:18 Blood Culture (Wb) - Anticubital Left Blood Culture - Preliminary No growth in 48 hours. 03/18/25 15:18 Blood Culture (Wb) - Anticubital Right Blood Culture - Preliminary No growth in 48 hours. 03/19/25 08:25 Gastric Fluid/Contents Gastric Occult Blood - Final Occult Blood Positive 03/18/25 20:15 Mucosa - Nasopharyngeal Respiratory Panel (PCR) - Final Physical Exam Const oriented x3 and no apparent distress Constitutional Narrative: class II obesity General Appearance: cooperative HEENT normocephalic and head/scalp atraumatic Eyes EOMs intact bilaterally Neck supple Lymph Lymphatic: no lymphedema noted Resp Resp Narrative: Moderately diminished breath sounds bibasilarly. No wheezes, few crackles bilaterally. on room air. Cardio regular rate, regular rhythm, S1 normal heart sound, S2 normal heart sound and no murmurs GI normal to inspection, nondistended, normoactive bowel sounds, soft to palpation and non-tender GI Narrative: Obese abdomen Extremity no clubbing, cyanosis or edema and no calf tenderness General Extremity: no tenderness to palpation of joints or extremities Skin General Skin Exam: no breakdown Neuro CN's II-XII intact bilaterally and no focal motor deficits Neuro Narrative: I Motor Exam: general weakness Psych thought process normal and cooperative Appearance: appropriate Assessment & Plan Assessment/Plan (1) Acute respiratory failure with hypoxia and hypercapnia: (2) Shock: PLAN: Plan #Undifferentiated shock * Etiology is not clear. She was admitted with altered mental status and hypotension as well as acute renal failure. * She was unresponsive to fluids so central line was placed and she was started on pressors. She was also in respiratory distress so was intubated * CT chest abdomen and pelvis showed only infrarenal saccular aortic aneurysm measuring 3.8 x 4.5 x 5.5 cm * CTA also did not show any evidence of rupture of the saccular aortic aneurysm * Blood and urine cultures pending. Critical care on board. On broad-spectrum antibiotics-meropenem * now off steroids. * Limited echo done showed normal ventricular size with moderate concentric left ventricular hypertrophy and hyperdynamic left ventricular systolic function with left ventricular EF of 75% and no regional wall motion abnormality seen * weaned off levophed today.WBC is down to 11.9 * on midodrine * #Acute hypoxic and hypercapnic respiratory failure * was intubated on admission, but now extubated. On room air. * Breathing treatments and bronchodilators. Titrate oxygen to maintain saturation above 90%. #Acute renal failure: Resolving. Creatinine is down to 1.35 today Day catheter in place. Monitor intake and output. Fluid restriction to 1500 cc daily. #History of left shoulder prosthetic infection: * On long-term antibiotics for this. Continue the antibiotics * Right shoulder x-ray showed lucencies in the soft tissues of the proximal left arm and findings can be better evaluated by CT exam if clinically warranted with exam significantly limited by patient's body habitus and positioning * CT of the shoulder done today showed evidence of s/p left reverse shoulder replacement with good alignment. No evidence of infection. #Heart failure preserved EF: Has EF of 70% and stage I diastolic dysfunction per 2D echo done on 03/04/2025. Limited echo ordered. #Infrarenal aneurysm * CTA of the abdomen showed the infrarenal saccular aortic aneurysm measuring 3.8 x 4.5 x 5.5 cm as above. * Follow-up with PCP for further workup and referral on outpatient basis as needed * #Restless leg syndrome: on pramipexole. Will resume #Hypertension: BP meds on hold due to hypotension and shock. On midodrine #Depression and anxiety: on mirtazapine. Will resume DVT prophylaxis: SCDs, Lovenox Charges/Coding Visit Charges Inpatient E&M: 52400 Subs Hosp L2
[2025-03-22] MEDS: Meropenem 1 GM in 0.9% Normal Saline (100mL MB+) 100 ML IV ×2 (11:36→21:11)
--- NOTE | 2025-03-22 12:30 | PN.CC_ITS ---
Objective Data Objective Data Vital Signs: Vital Signs Last response 3 Temperature 36.3 C L 03/22/25 10:00 Temperature Source Temporal 03/22/25 10:00 Pulse Rate 81 03/22/25 11:13 Pulse Strength Normal (2+) 03/22/25 10:00 Respiratory Rate 15 03/22/25 11:13 Respiratory Effort Normal, Non-Labored 03/22/25 08:00 Respiratory Depth Normal 03/22/25 08:00 Respiratory Pattern Normal 03/22/25 11:13 Blood Pressure 106/58 L 03/22/25 10:00 Blood Pressure Mean 74 03/22/25 10:00 Blood Pressure Source Monitor 03/22/25 10:00 Blood Pressure Position Sitting 03/22/25 10:00 Blood Pressure Location Left Arm 03/22/25 10:00 Pulse Ox 98 03/22/25 10:00 Oxygen Delivery Method Nasal Cannula 03/22/25 10:00 Oxygen Flow Rate (L/min) 2 03/22/25 10:00 Fraction of Inspired Oxygen (FIO2) 25 03/20/25 08:00 EtCo2 - Document during CPR and with ROSC 79 03/18/25 17:30 CLA-BSI maintained Yes: 5 Fr 03/20/25 02:00 I&O: I&O Last 24 Hours 3 03/21/25 03/22/25 03/22/25 23:59 11:59 23:59 Intake Total 690.48 / 1121.31 350 / 350 Output Total 0 / 0 0 / 0 Balance 690.48 / 1121.31 350 / 350 I&O: Total Stay 3 03/18/25 14:53 thru 03/22/25 10:18 Intake Total 9694.60 Output Total 6775 Balance 2919.60 Current Meds Ordered / Administered: Current meds ordered / Administered 3 Generic Name Dose Route Start Last Admin Trade Name Freq PRN Reason Stop Dose Admin Albuterol Sulfate 2.5 mg 03/18/25 20:43 Albuterol 2.5 Mg/3 Ml Vial.Neb. INHALATION Q2H PRN PRN SOB &/OR WHEEZING Albuterol/Ipratropium 3 ml 03/21/25 21:05 03/22/25 11:12 Ipratropium/Albuterol Sulfate 3 Ml Ampul.Neb INHALATION 3 ml Q4HWA.RT KACEY Administration Aspirin 81 mg 03/18/25 22:00 03/22/25 09:49 Aspirin 81 Mg Tab.Chew PO 81 mg BID KACEY Administration Bupropion HCl 150 mg 03/23/25 10:00 Bupropion (Xl) 150 Mg Tablet.Xl PO DAILY KACEY Duloxetine HCl 30 mg 03/23/25 10:00 Duloxetine Hcl 30 Mg Capsule PO DAILY KACEY Enoxaparin Sodium 40 mg 03/21/25 06:00 03/22/25 06:19 Enoxaparin 40 Mg/0.4 Ml Syringe SC 40 mg DAILY@0600 KACEY Administration Gabapentin 600 mg 03/20/25 22:00 03/21/25 20:31 Gabapentin 600 Mg Tablet PO 600 mg QHS KACEY Administration Hydrocortisone Sodium Succinate 50 mg 03/19/25 12:00 03/22/25 11:37 Hydrocortisone Sod Succinate 100 Mg/2 Ml Vial IV 50 mg Q6 KACEY Administration Norepinephrine Bitartrate 8 mg 250 mls @ 9.375 mls/hr 03/18/25 18:10 03/22/25 06:04 / Sodium Chloride CONT INF Not Given .[id number] KACEY Protocol 5 MCG/MIN Pantoprazole Sodium 40 mg/ 100 mls @ 300 mls/hr 03/19/25 10:00 03/22/25 10:18 Sodium Chloride IV Infused Q24 KACEY Infusion Meropenem 1 gm/ Sodium 100 mls @ 33 mls/hr 03/19/25 10:00 03/22/25 11:36 Chloride IV 33 mls/hr Q12 KACEY Administration Sodium Chloride 250 mls @ 15 mls/hr 03/18/25 21:14 03/22/25 06:04 IV Infused .[id number] PRN Infusion Saline Flush Sodium Chloride 250 mls @ 15 mls/hr 03/18/25 21:14 IV .[id number] PRN Additional IVPB Infusion Sodium Chloride 1,000 mls @ 1 mls/hr 03/18/25 21:14 IV .Q48H PRN Saline Flush Midodrine 10 mg 03/21/25 06:00 03/22/25 11:37 Midodrine Hcl 5 Mg Tablet PO 10 mg TIDCM KACEY Administration Mirtazapine 15 mg 03/22/25 22:00 Mirtazapine 15 Mg Tablet PO QHS KACEY Pramipexole Dihydrochloride 1 mg 03/20/25 22:00 03/22/25 00:37 Pramipexole Di-Hcl 1 Mg Tablet PO 1 mg QHS KACEY Administration Pramipexole Dihydrochloride 0.5 mg 03/21/25 08:00 03/21/25 20:32 Pramipexole Di-Hcl 0.5 Mg Tablet PO 0.5 mg BIDCM KACEY Administration Senna/Docusate Sodium 2 tablet 03/18/25 20:43 Senna/Docusate Sodium 1 Tablet PO BID PRN PRN Constipation Sodium Chloride 10 - 40 ml 03/18/25 21:14 03/21/25 17:35 0.9% Saline Lock 10 Ml Syringe IV 10 ml UD PRN Administration SALINE FLUSH Lab / Micro Data 03/22/25 05:48 03/22/25 05:48 Labs: Laboratory Results - last 24 hr 03/22/25 05:48: WBC 11.9 H, RBC 3.93 L, Hgb 11.7 L, Hct 37.2, MCV 94.7, MCH 29.8, MCHC 31.5 L, RDW Std Deviation 52.0 H, RDW Coeff of Terry 15.0 H, Plt Count 146 L, MPV 10.2, Immature Gran % (Auto) 0.600, Neut % (Auto) 90.1 H, Lymph % (Auto) 5.1 L, [place] % (Auto) 4.1, Eos % (Auto) 0.0, Baso % (Auto) 0.1, Absolute Neuts (auto) 10.8 H, Absolute Lymphs (auto) 0.61 L, Nucleated RBC % 0, Sodium 142, Potassium 3.6, Chloride 103, Carbon Dioxide 32.5 H, Anion Gap 7, BUN 41 H, Creatinine 1.10, Estim Creat Clear Calc 56.98, Est GFR (MDRD) Non-Af 52 L, B UN/Creatinine Ratio 37.1 H, Glucose 122 H, Calcium 8.6 Assessment and Plan . Assessment and plan: Patient seen and examined Chart and data reviewed TX out of ICU earlier today She is awake and alert - NAD Breathing RA comfortably Data reviewed CX NGTD Exam unremarkable OK to wean hydrocortisone off We are available as needed The entirety of this encounter was done via Telemedicine
[2025-03-22] MEDS: 0.9% Saline Lock 10 ML Syringe IV (21:11)
[2025-03-23] VITALS (9 sets, daily range): BP systolic 96–107; BP diastolic 55–71; PULSE 78–97; RESP 16–22; TEMP 36.3–36.9; O2SAT 84–97; BMI 42.0
[2025-03-23] MEDS: Meropenem 1 GM in 0.9% Normal Saline (100mL MB+) 100 ML IV ×3 (05:47→21:10)
[2025-03-23 06:39] LABS: Hematocrit 37.5 % (37-47); Hemoglobin 11.5 g/dL (12.0-15.0); Immature Granulocytes Count 0.060 X10^3/uL (0.0-0.0); Mean Corp Hgb Conc 30.7 g/dL (32-36); Mean Corpuscular Volume 96.6 fL (81-99); Mean Platelet Vol. 10.6 fl (6.2-12.0); NRBC Flagged by Analyzer 0 % (0-5); Platelet Count 153 K/mm3 (150-450); RBC Distribution Width CV 15.1 % (11.6-14.6); RBC Distribution Width SD 53.0 fl (35.1-43.9); Red Blood Count 3.88 M/mm3 (4.2-5.4); White Blood Count 11.8 K/mm3 (4.4-11.0)
[2025-03-23 07:12] LABS: Anion Gap 9 (5-15); BUN 40 mg/dL (4-19); BUN/Creat Ratio 33.2 RATIO (10-20); Calcium,Total 8.6 mg/dL (7.6-11.0); Carbon Dioxide 32.2 mmol/L (21.0-32.0); Chloride 105 mmol/L (98-108); Estimated Creatinine Clearance 53.50 ml/min (50-250); Glucose 90 mg/dL (70-99); Potassium 4.0 mmol/L (3.3-5.1)
[2025-03-23] MEDS: Pantoprazole Sodium 40 MG in 0.9% Normal Saline (100mL MB+) 100 ML 300 MG IV (09:57)
[2025-03-23] MEDS: buPROPion (XL) 150 MG TABLET.XL PO (10:01)
[2025-03-23] MEDS: 0.9% Saline Lock 10 ML Syringe IV ×2 (10:01→14:08)
--- NOTE | 2025-03-23 12:07 | PN_ITS ---
Subjective Subjective Patient seen and examined. She had no active complaints. She remains on 2 L of oxygen. Review of systems otherwise negative. Objective Data Objective Data Vital Signs: Vital Signs Temp Pulse Resp BP Pulse Ox O2 Del Method O2 Flow Rate 97.4 F L 78 20 H 107/71 97 Room Air 2 03/23/25 09:45 03/23/25 11:25 03/23/25 11:25 03/23/25 09:45 03/23/25 09:45 03/23/25 09:45 03/23/25 09:37 FiO2 03/20/25 08:00 Oxygen Flow Rate (L/min) 2 Oxygen Delivery Method Room Air Weight: 268 lb 8.368 oz Body Mass Index (BMI) 42.0 Intake & Output: Intake and Output for Last 24 Hours 03/21/25 03/22/25 03/23/25 23:59 23:59 23:59 Intake Total 1121.31 / 1121.31 450 / 570 420 / 420 Output Total 0 / 0 0 / 0 0 / 0 Balance 1121.31 / 1121.31 450 / 570 420 / 420 Lab / Micro Data 03/23/25 05:44 03/23/25 05:44 Labs: Laboratory Results - last 24 hr 03/23/25 05:44: WBC 11.8 H, RBC 3.88 L, Hgb 11.5 L, Hct 37.5, MCV 96.6, MCH 29.6, MCHC 30.7 L, RDW Std Deviation 53.0 H, RDW Coeff of Terry 15.1 H, Plt Count 153, MPV 10.6, Immature Gran % (Auto) 0.500, Neut % (Auto) 72.4 H, Lymph % (Auto) 15.5 L, [place] % (Auto) 9.8, Eos % (Auto) 1.6, Baso % (Auto) 0.2, Absolute Neuts (auto) 8.5 H, Absolute Lymphs (auto) 1.83, Nucleated RBC % 0, Sodium 147 H , Potassium 4.0, Chloride 105, Carbon Dioxide 32.2 H, Anion Gap 9, BUN 40 H, C reatinine 1.21 H, Estim Creat Clear Calc 53.50, Est GFR (MDRD) Non-Af 46 L, B UN/Creatinine Ratio 33.2 H, Glucose 90, Calcium 8.6 Micro: Microbiology 03/18/25 15:24 Urine, Catheterized Urine Culture - Final Culture exhibits no growth. 03/18/25 19:14 Sputum, Induced/Lukens Gram Stain - Final 03/18/25 19:14 Sputum, Induced/Lukens Respiratory Culture - Final Mixed normal respiratory talya. No Streptococcus pneumoniae, beta-hemolytic Streptococcus or Staphylococcus aureus isolated. 03/18/25 15:18 Blood Culture (Wb) - Anticubital Left Blood Culture - Preliminary No growth in 48 hours. 03/18/25 15:18 Blood Culture (Wb) - Anticubital Right Blood Culture - Preliminary No growth in 48 hours. 03/19/25 08:25 Gastric Fluid/Contents Gastric Occult Blood - Final Occult Blood Positive 03/18/25 20:15 Mucosa - Nasopharyngeal Respiratory Panel (PCR) - Final Physical Exam Const oriented x3 and no apparent distress Constitutional Narrative: class II obesity General Appearance: cooperative HEENT normocephalic and head/scalp atraumatic Eyes EOMs intact bilaterally Neck supple Lymph Lymphatic: no lymphedema noted Resp Resp Narrative: Moderately diminished breath sounds bibasilarly. No wheezes, few crackles bilaterally. on room air. Cardio regular rate, regular rhythm, S1 normal heart sound, S2 normal heart sound and no murmurs GI normal to inspection, nondistended, normoactive bowel sounds, soft to palpation and non-tender GI Narrative: Obese abdomen Extremity no clubbing, cyanosis or edema and no calf tenderness General Extremity: no tenderness to palpation of joints or extremities Skin General Skin Exam: no breakdown Neuro CN's II-XII intact bilaterally and no focal motor deficits Neuro Narrative: I Motor Exam: general weakness Psych thought process normal and cooperative Appearance: appropriate Assessment & Plan Assessment/Plan (1) Acute respiratory failure with hypoxia and hypercapnia: (2) Shock: PLAN: Plan #Undifferentiated shock * Etiology is not clear. She was admitted with altered mental status and hypotension as well as acute renal failure. * She was unresponsive to fluids so central line was placed and she was started on pressors. She was also in respiratory distress so was intubated * CT chest abdomen and pelvis showed only infrarenal saccular aortic aneurysm measuring 3.8 x 4.5 x 5.5 cm * CTA also did not show any evidence of rupture of the saccular aortic aneurysm * Blood and urine cultures pending. Critical care on board. On broad-spectrum antibiotics-meropenem * now off steroids. * Limited echo done showed normal ventricular size with moderate concentric left ventricular hypertrophy and hyperdynamic left ventricular systolic function with left ventricular EF of 75% and no regional wall motion abnormality seen * weaned off levophed today.WBC is down to 11.9 * on midodrine * ID to evaluate tomorrow to determine duration of antibiotics * #Acute hypoxic and hypercapnic respiratory failure * was intubated on admission, but now extubated. On room air. * Breathing treatments and bronchodilators. Titrate oxygen to maintain saturation above 90%. #Acute renal failure: * Resolving. Creatinine is down to 1.35 today * Day catheter in place. Monitor intake and output. Fluid restriction to 1500 cc daily. #History of left shoulder prosthetic infection: * On long-term antibiotics for this. Continue the antibiotics * Right shoulder x-ray showed lucencies in the soft tissues of the proximal left arm and findings can be better evaluated by CT exam if clinically warranted with exam significantly limited by patient's body habitus and positioning * CT of the shoulder done showed evidence of s/p left reverse shoulder replacement with good alignment. No evidence of infection. #Heart failure preserved EF: Has EF of 70% and stage I diastolic dysfunction per 2D echo done on 03/04/2025. Limited echo ordered. #Infrarenal aneurysm * CTA of the abdomen showed the infrarenal saccular aortic aneurysm measuring 3.8 x 4.5 x 5.5 cm as above. * Follow-up with PCP for further workup and referral on outpatient basis as needed * #Restless leg syndrome: on pramipexole. #Hypertension: BP meds on hold due to hypotension and shock. On midodrine #Depression and anxiety: on mirtazapine. DVT prophylaxis: SCDs, Lovenox Disposition: Discharge to TCU pending pre-CERT once medically stable Charges/Coding Visit Charges Inpatient E&M: 78929 Subs Hosp L2
[2025-03-24] VITALS (12 sets, daily range): BP systolic 107–141; BP diastolic 57–78; PULSE 75–94; RESP 16–18; TEMP 36–36.9; O2SAT 93–98; BMI 41.7
[2025-03-24] MEDS: Meropenem 1 GM in 0.9% Normal Saline (100mL MB+) 100 ML IV (05:38)
[2025-03-24 05:47] LABS: Hematocrit 38.0 % (37-47); Hemoglobin 11.5 g/dL (12.0-15.0); Immature Granulocytes Count 0.050 X10^3/uL (0.0-0.0); Mean Corp Hgb Conc 30.3 g/dL (32-36); Mean Corpuscular Volume 98.7 fL (81-99); Mean Platelet Vol. 10.3 fl (6.2-12.0); NRBC Flagged by Analyzer 0 % (0-5); Platelet Count 152 K/mm3 (150-450); RBC Distribution Width CV 15.1 % (11.6-14.6); RBC Distribution Width SD 54.4 fl (35.1-43.9); Red Blood Count 3.85 M/mm3 (4.2-5.4); White Blood Count 10.6 K/mm3 (4.4-11.0)
[2025-03-24 06:11] LABS: Anion Gap 7 (5-15); BUN 31 mg/dL (4-19); BUN/Creat Ratio 37.2 RATIO (10-20); Calcium,Total 8.9 mg/dL (7.6-11.0); Carbon Dioxide 32.9 mmol/L (21.0-32.0); Chloride 101 mmol/L (98-108); Estimated Creatinine Clearance 77.67 ml/min (50-250); Glucose 109 mg/dL (70-99); Potassium 4.3 mmol/L (3.3-5.1)
--- NOTE | 2025-03-24 08:33 | CASEMGMT ---
Social Work SW requested precert be started in TCU. ROLY Malcolm
[2025-03-24] MEDS: buPROPion (XL) 150 MG TABLET.XL PO (09:03)
[2025-03-24] MEDS: 0.9% Saline Lock 10 ML Syringe IV ×2 (09:20→21:01)
--- NOTE | 2025-03-24 11:31 | CASEMGMT ---
Social Work SW spoke with the patient in her room. Two of her cousins were in the room also. Patient reported she does not feel ready to go home and wants to go to skilled rehab. SW informed her that the insurance company may not approve due to her doing well in therapy. Patient reported she had [facility] before. The cousin reported the patient cannot be at home alone because she gets SOB. The patient reported there is nobody available to stay with her at discharge and she cannot stay with anyone if she discharges home. KOBE Diamond
--- NOTE | 2025-03-24 14:29 | PCM.PN.ID ---
Physical Exam Narrative Feeling better, no fever, no n/v/d, mild cough, no dysuria. Const alert and no apparent distress General Appearance: cooperative Resp normal air movement and clear to auscultation bilaterally Cardio regular rate and regular rhythm GI soft to palpation, non-tender and non-distended Extremity General Extremity: Negative for edema Skin no rashes or lesions noted Neuro CN's II-XII intact bilaterally ID ID: Route of nutrition/ use of supplements: [] Nutritional Intake: [] IV Site: [] Day Catheter: [] Assessment & Plan Assessment/Plan (1) Shock: PLAN: Unclear cause. ELVIA improved. Now off pressors and vent. No fever overnight. Bcx, sputum cx, and ucx neg so far. Stool showed blood. Ordered CT shoulder given 08/2024 MRSA/MSSA L shoulder PJI; reports compliance with suppressive po doxy as outpt. CT showed no abscess, exam is benign. Will stop eddie and resume home doxycycline po. Will follow (2) Acute on chronic respiratory failure with hypoxia and hypercapnia: (3) Infection of prosthetic shoulder joint:
--- NOTE | 2025-03-24 15:43 | CASEMGMT ---
JC KENNY updated by SW and nursing that patient had concerns regarding IMM form and discharge planning. JC KENNY in with SW to discuss IMM form and discharge planning, sisters at bedside. JC KENNY explained IMM form, patient and sisters voiced understaging. JC KENNY reviewed progress with therapy and TCU precert process with insurance. JC KENNY discussed options should patient get denied of [facility] of nursing and therapy. Sisters mentioned patient was short of breath prior to admission and had been to PCP prior and started on Lasix. Patient states she has diagnosis of heart failure. JC KENNY provided education regarding HF, low sodium diet, and weigh self at home. Patient and family voiced understanding and had no further questions or concerns. JC KENNY and SW will continue to follow this patient and plan for a safe discharge.
--- NOTE | 2025-03-24 16:36 | PCM.PN.HOSP ---
Reason for Visit Chief Complaint: Altered mental status Subjective Subjective Clinically patient is doing much better. Appears ready for discharge. Patient states that she is very concerned about going home and managing at home. She states she lives alone in her apartment and is unable to have anybody home with her and states she feels that she got significant difficulty managing. Objective Data Objective Data Vital Signs: Vital Signs Temp Pulse Resp BP Pulse Ox O2 Del Method O2 Flow Rate 98.4 F 94 18 136/78 H 94 Nasal Cannula 2 03/24/25 12:03/24/25 15:03/24/25 15:01 03/24/25 12:03/24/25 12:03/24/25 12:03/24/25 16:00 FiO2 03/20/25 08:00 Oxygen Flow Rate (L/min) 2 Oxygen Delivery Method Nasal Cannula Weight: 120.9 kg Body Mass Index (BMI) 41.7 Intake & Output: Intake and Output for Last 24 Hours 03/22/25 03/23/25 03/24/25 23:59 23:59 23:59 Intake Total 450 / 570 1000 / 1120 1100 / 1100 Output Total 0 / 0 0 / 0 Balance 450 / 570 1000 / 1120 1100 / 1100 Lab / Micro Data 03/24/25 05:25 03/24/25 05:25 Labs: Laboratory Results - last 24 hr 03/18/25 15:01: POC Glucose 118 H 03/24/25 05:25: WBC 10.6, RBC 3.85 L, Hgb 11.5 L, Hct 38.0, MCV 98.7, MCH 29.9, MCHC 30.3 L, RDW Std Deviation 54.4 H, RDW Coeff of Terry 15.1 H, Plt Count 152, MPV 10.3, Immature Gran % (Auto) 0.500, Neut % (Auto) 75.3 H, Lymph % (Auto) 9.8 L, [place] % (Auto) 12.2 H, Eos % (Auto) 2.0, Baso % (Auto) 0.2, Absolute Neuts (auto) 8.0 H, Absolute Lymphs (auto) 1.03, Nucleated RBC % 0, Sodium 141, Potassium 4.3, Chloride 101, Carbon Dioxide 32.9 H, Anion Gap 7, BUN 31 H, Creatinine 0.83, Estim Creat Clear Calc 77.67, Est GFR (MDRD) Non-Af 73, BUN/Creatinine Ratio 37.2 H, Glucose 109 H, Calcium 8.9 Micro: Microbiology 03/18/25 15:18 Blood Culture (Wb) - Anticubital Left Blood Culture - Final No growth in 5 days. 03/18/25 15:18 Blood Culture (Wb) - Anticubital Right Blood Culture - Final No growth in 5 days. 03/18/25 15:24 Urine, Catheterized Urine Culture - Final Culture exhibits no growth. 03/18/25 19:14 Sputum, Induced/Lukens Gram Stain - Final 03/18/25 19:14 Sputum, Induced/Lukens Respiratory Culture - Final Mixed normal respiratory talya. No Streptococcus pneumoniae, beta-hemolytic Streptococcus or Staphylococcus aureus isolated. 03/19/25 08:25 Gastric Fluid/Contents Gastric Occult Blood - Final Occult Blood Positive 03/18/25 20:15 Mucosa - Nasopharyngeal Respiratory Panel (PCR) - Final Physical Exam Const alert, oriented x3, no apparent distress and well nourished; Negative for average body habitus or healthy appearing Constitutional Narrative: Morbidly obese, white female, sitting up in chair at the bedside, friends and family at bedside, appears comfortable, currently does not look toxic HEENT head/scalp atraumatic and moist oral mucous membranes HEENT Narrative: Mallampati 3-4, no thrush Head and Scalp: normocephalic Resp normal respiratory effort, no retractions, no use of accessory muscles and clear to auscultation bilaterally Auscultation: Negative for rales, rhonchi or wheezes Cardio regular rate, regular rhythm, S1 normal heart sound, S2 normal heart sound, no murmurs, no rub, no gallops and no clicks GI normal to inspection, nondistended, normoactive bowel sounds, soft to palpation and non-tender GI Narrative: Protuberant abdomen Extremity no clubbing, cyanosis or edema Extremity Narrative: 2+ pedal pulses, 2+ radial pulses Neuro moves all extremities and no focal motor deficits Neuro Narrative: Generalized weakness noted more specific proximally than distal and lower extremities more affected than upper extremities Speech: speech normal Psych affect normal Psych Narrative: Very pleasant, mildly anxious about having to return home potentially Assessment & Plan Assessment/Plan (1) Saccular aneurysm: (2) Acute respiratory failure with hypoxia and hypercapnia: (3) Shock: (4) Acute kidney injury: PLAN: Plan Undifferentiated shock - Required mechanical ventilations and pressors -Wean midodrine from 10 mg 3 times daily to 5 mg 3 times daily - All cultures have been negative - Patient did have joint infection of the shoulder in 08/[address] was ordered by ID and was unremarkable - IV my antimicrobials were discontinued and home doxycycline was reinitiated for suppressive therapy - ID is following-appreciate input Acute hypoxic and hypercapnic respiratory failure - Resolved - Patient not requiring any supplemental oxygen at this time Leukocytosis -resolved Mild acute anemia - Normocytic -Likely related to acute hospitalization and critical illness -Hemoglobin is stable at 11.5 - Repeat CBC in a.m. Post critical illness generalized weakness and debility - Patient's ultimate goal is to return home however she is significantly concerned about this as she lives alone and has nobody that is able to stay with her - Current plan is for placement if possible - Continue PT/OT - Patient fatigues fairly quickly with any exertion History of left shoulder prosthesis infection - Oral Doxy restarted today - Continue outpatient follow-up as previous ELVIA - Resolved - Likely related to shock on presentation - Serum creatinine today is 0.83 HFpEF - Echo done showing EF of 70% with stage I diastolic dysfunction Infrarenal saccular abdominal aortic aneurysm - 3.8 x 4.5 x 5.5 cm - Outpatient follow-up Hyperglycemia - Hemoglobin A1c was obtained and was found to be 5.6 - Not diabetic at baseline - Likely stress response Restless leg syndrome - Continue home Mirapex Essential hypertension - Wean midodrine and restart home antihypertensive as blood pressure allows Depression/anxiety - Continue home Remeron DVT prophylaxis - Continue Lovenox CODE STATUS - DNR CCA okay for intubation Disposition - Patient is medically stable for discharge - Awaiting pre-CERT from insurance Charges/Coding Visit Charges Inpatient E&M: 28618 Subs Hosp L2 Date medically ready for discharge: 03/24/25 Reason for DC delay: Precert pending from insurance
[2025-03-25] VITALS (10 sets, daily range): BP systolic 110–130; BP diastolic 57–79; PULSE 87–95; RESP 16–20; TEMP 36.5–37.1; O2SAT 88–97; BMI 41.4
[2025-03-25 05:48] LABS: Hematocrit 36.8 % (37-47); Hemoglobin 11.3 g/dL (12.0-15.0); Immature Granulocytes Count 0.050 X10^3/uL (0.0-0.0); Mean Corp Hgb Conc 30.7 g/dL (32-36); Mean Corpuscular Volume 98.4 fL (81-99); Mean Platelet Vol. 10.1 fl (6.2-12.0); NRBC Flagged by Analyzer 0 % (0-5); Platelet Count 143 K/mm3 (150-450); RBC Distribution Width CV 14.6 % (11.6-14.6); RBC Distribution Width SD 52.7 fl (35.1-43.9); Red Blood Count 3.74 M/mm3 (4.2-5.4); White Blood Count 9.1 K/mm3 (4.4-11.0)
[2025-03-25 06:23] LABS: Anion Gap 5 (5-15); BUN 20 mg/dL (4-19); BUN/Creat Ratio 27.9 RATIO (10-20); Calcium,Total 8.8 mg/dL (7.6-11.0); Carbon Dioxide 35.9 mmol/L (21.0-32.0); Chloride 99 mmol/L (98-108); Estimated Creatinine Clearance 80.24 ml/min (50-250); Glucose 105 mg/dL (70-99); Potassium 4.5 mmol/L (3.3-5.1)
[2025-03-25] MEDS: buPROPion (XL) 150 MG TABLET.XL PO (10:38)
--- NOTE | 2025-03-25 11:09 | CASEMGMT ---
Social Work SW spoke with the patient. SW informed her that insurance has not made a decision yet about her going to SNF. SW gave the patient a blank POA/LW paperwork with a rack card. Patient wants to discuss the paperwork with the POA's. KOBE Diamond
--- NOTE | 2025-03-25 15:31 | CASEMGMT ---
Social Work CM did get a call from insurance, they are offering a peer to peer for physician to call prior to 10:30am tomorrow. The medical apparatus model maker will then make a decision after speaking w/physician, if physician does not call by 10:30 the decision will be made without the input of physician. Physician to call: , option 5, will need to give pt's name and date of , and ID #: CHRISTINE Kinsey 1950, ID #[id number] Physician plans to call in the morning. ROLY Malcolm
--- NOTE | 2025-03-25 15:44 | CASEMGMT ---
Social Work SW informed the patient that the insurance company is requesting a peer to peer which will be completed in the morning. ANSHU informed the patient the insurance may deny her going to a skilled rehab facility. KOBE Diamond
--- NOTE | 2025-03-25 18:02 | PN.HOSP_ITS ---
Reason for Visit Chief Complaint: Altered mental status Subjective Subjective No issues overnight. Patient did state that she would like a polysomnography before she is discharged. We discussed again today that we cannot do that as an inpatient test has to be an outpatient test and I would make that recommendation at discharge however we are unable to do it here and get it covered and get her appropriate treatment after discharge. She again voiced understanding. No specific complaints. I did inform her if her blood pressure stays elevated off midodrine we would try to diurese her today a bit. Objective Data Objective Data Vital Signs: Vital Signs Temp Pulse Resp BP Pulse Ox O2 Del Method O2 Flow Rate 97.7 F L 87 16 126/69 H 97 Nasal Cannula 2 03/25/25 10:36 03/25/25 14:36 03/25/25 14:36 03/25/25 10:36 03/25/25 10:36 03/25/25 10:47 03/25/25 10:47 FiO2 03/20/25 08:00 Oxygen Flow Rate (L/min) 2 Oxygen Delivery Method Nasal Cannula Weight: 120 kg Body Mass Index (BMI) 41.4 Intake & Output: Intake and Output for Last 24 Hours 03/23/25 03/24/25 03/25/25 23:59 23:59 23:59 Intake Total 999 Output Total 0 / 0 Balance 999 Lab / Micro Data 03/25/25 05:30 03/25/25 05:30 Labs: Laboratory Results - last 24 hr 03/25/25 05:30: WBC 9.1, RBC 3.74 L, Hgb 11.3 L, Hct 36.8 L, MCV 98.4, MCH 30.2, MCHC 30.7 L, RDW Std Deviation 52.7 H, RDW Coeff of Terry 14.6, Plt Count 143 L, MPV 10.1, Immature Gran % (Auto) 0.500, Neut % (Auto) 79.2 H, Lymph % (Auto) 9.4 L, [place] % (Auto) 9.3, Eos % (Auto) 1.4, Baso % (Auto) 0.2, Absolute Neuts (auto) 7.2, Absolute Lymphs (auto) 0.86, Nucleated RBC % 0, Sodium 140, Potassium 4.5, Chloride 99, Carbon Dioxide 35.9 H, Anion Gap 5, BUN 20 H, Creatinine 0.72, Estim Creat Clear Calc 80.24, Est GFR (MDRD) Non-Af 86, BUN/Creatinine Ratio 27.9 H, Glucose 105 H, Calcium 8.8 Micro: Microbiology 03/18/25 15:18 Blood Culture (Wb) - Anticubital Left Blood Culture - Final No growth in 5 days. 03/18/25 15:18 Blood Culture (Wb) - Anticubital Right Blood Culture - Final No growth in 5 days. 03/18/25 15:24 Urine, Catheterized Urine Culture - Final Culture exhibits no growth. 03/18/25 19:14 Sputum, Induced/Lukens Gram Stain - Final 03/18/25 19:14 Sputum, Induced/Lukens Respiratory Culture - Final Mixed normal respiratory talya. No Streptococcus pneumoniae, beta-hemolytic Streptococcus or Staphylococcus aureus isolated. 03/19/25 08:25 Gastric Fluid/Contents Gastric Occult Blood - Final Occult Blood Positive 03/18/25 20:15 Mucosa - Nasopharyngeal Respiratory Panel (PCR) - Final Physical Exam Const alert, oriented x3, no apparent distress and well nourished; Negative for average body habitus or healthy appearing Constitutional Narrative: Morbidly obese, white female, sitting up in chair at the bedside, friends and family at bedside, appears comfortable, currently does not look toxic General Appearance: cooperative HEENT normocephalic, head/scalp atraumatic and moist oral mucous membranes Resp normal respiratory effort, no retractions, no use of accessory muscles and clear to auscultation bilaterally Resp Narrative: Crackles at bases bilaterally Auscultation: crackles; Negative for rhonchi or wheezes Cardio regular rate, regular rhythm, S1 normal heart sound, S2 normal heart sound, no murmurs, no rub, no gallops and no clicks GI normal to inspection, nondistended, normoactive bowel sounds, soft to palpation and non-tender GI Narrative: Protuberant abdomen Extremity no clubbing, cyanosis or edema Extremity Narrative: 2+ pedal pulses, 2+ radial pulses Neuro moves all extremities and no focal motor deficits Neuro Narrative: Generalized weakness noted more specific proximally than distal and lower extremities more affected than upper extremities Speech: speech normal Psych affect normal Psych Narrative: Very pleasant, mildly anxious about having to return home potentially Assessment & Plan Assessment/Plan (1) Saccular aneurysm: (2) Acute respiratory failure with hypoxia and hypercapnia: (3) Shock: (4) Acute kidney injury: PLAN: Plan Undifferentiated shock - Required mechanical ventilations and pressors - Discontinue midodrine - All cultures have been negative - Patient did have joint infection of the shoulder in 08/[address] was ordered by ID and was unremarkable - IV my antimicrobials were discontinued and home doxycycline was reinitiated for suppressive therapy - ID is following-appreciate input Acute hypoxic and hypercapnic respiratory failure - Resolved -Patient intermittently requiring 2 L especially at night - Highly suspect obstructive sleep apnea patient needs outpatient polysomnography - Will recommend at discharge Mild acute anemia - Normocytic - Likely related to acute hospitalization and critical illness - Hemoglobin remained stable - Repeat CBC in a.m. Post critical illness generalized weakness and debility - Patient's ultimate goal is to return home however she is significantly concerned about this as she lives alone and has nobody that is able to stay with her - Current plan is for placement if possible - Continue PT/OT - Patient fatigues fairly quickly with any exertion - Awaiting pre-CERT for discharge History of left shoulder prosthesis infection - Oral Doxy restarted today - Continue outpatient follow-up as previous HFpEF - Echo done showing EF of 70% with stage I diastolic dysfunction - IV Lasix 40 mg x 1 dose - Will likely restart oral Lasix tomorrow Infrarenal saccular abdominal aortic aneurysm - 3.8 x 4.5 x 5.5 cm - Outpatient follow-up Hyperglycemia - Hemoglobin A1c was obtained and was found to be 5.6 - Not diabetic at baseline - Likely stress response Restless leg syndrome - Continue home Mirapex Essential hypertension - Discontinue midodrine - IV Lasix x 1 dose - Continue to hold carvedilol - Continue to hold indapamide next-continue to hold home losartan - continue to hold Aldactone Depression/anxiety - Continue home Remeron DVT prophylaxis - Continue Lovenox CODE STATUS - DNR CCA okay for intubation Disposition - Patient is medically stable for discharge - Awaiting pre-CERT from insurance Charges/Coding Visit Charges Inpatient E&M: 98143 Subs Hosp L2 Date medically ready for discharge: 03/24/25 Reason for DC delay: Precert pending from insurance
[2025-03-25] MEDS: 0.9% Saline Lock 10 ML Syringe IV ×2 (18:33→21:19)
[2025-03-26] VITALS (8 sets, daily range): BP systolic 110–140; BP diastolic 69–105; PULSE 83–96; RESP 16–20; TEMP 36.6; O2SAT 84–94; BMI 40.4
[2025-03-26 07:25] LABS: Hematocrit 35.8 % (37-47); Hemoglobin 11.1 g/dL (12.0-15.0); Immature Granulocytes Count 0.050 X10^3/uL (0.0-0.0); Mean Corp Hgb Conc 31.0 g/dL (32-36); Mean Corpuscular Volume 94.7 fL (81-99); Mean Platelet Vol. 9.7 fl (6.2-12.0); NRBC Flagged by Analyzer 0 % (0-5); Platelet Count 169 K/mm3 (150-450); RBC Distribution Width CV 14.1 % (11.6-14.6); RBC Distribution Width SD 48.9 fl (35.1-43.9); Red Blood Count 3.78 M/mm3 (4.2-5.4); White Blood Count 8.5 K/mm3 (4.4-11.0)
[2025-03-26 07:47] LABS: Anion Gap 7 (5-15); BUN 18 mg/dL (4-19); BUN/Creat Ratio 26.4 RATIO (10-20); Calcium,Total 8.7 mg/dL (7.6-11.0); Carbon Dioxide 38.2 mmol/L (21.0-32.0); Chloride 94 mmol/L (98-108); Estimated Creatinine Clearance 79.11 ml/min (50-250); Glucose 98 mg/dL (70-99); Potassium 3.9 mmol/L (3.3-5.1)
--- NOTE | 2025-03-26 09:10 | CASEMGMT ---
Social Work Correct phone number for Peer to Peer [phone] option 5. GREER Hurst
[2025-03-26] MEDS: buPROPion (XL) 150 MG TABLET.XL PO (09:30)
--- NOTE | 2025-03-26 10:02 | CASEMGMT ---
Addendum entered by Rachael Castillo 03/26/25 10:23: SW offered a list of HH providers including quality and resource use data and consistent with the patient's preferred geographic region, medical needs, and insurance network was created in [employer] Guide.?Patient declined the list. Patient requested [facility] due to patient having their services before. Original Note: Social Work SW spoke with the patient and informed her that the insurance denied her to DC to a rehab facility even after the peer to peer today. Patient reported she wants [facility] after discharge. SW informed her that she will be tested to see if she needs oxygen at DC. Patient reported her granddaughter can picking crew supervisor when she DC today. KOBE Diamond
--- NOTE | 2025-03-26 13:09 | PCM.DC.SUM ---
Providers Date of Admission: 03/18/25 Date of Discharge: 03/26/25 Primary Care Physician: Dr. Kamar Grimes MD Consultations 03/18/25 20:43 Consult: Turner Splitter Machine Operator / Pulmonary Medicine Routine Consulting Provider: Pulmonary Medicine dc Kelley Reason for Consult: Vent management, undifferentiated shock EMERGENT Consult: No MD Notified: Yes Date Notified: 03/19/25 Time Notified: 00:10 Method of Notification: Text 03/19/25 00:33 Consult: Onc/Wound/refining supervisor Routine Comment: Reason for Consult:: Per ICU doc request dt prolonged immobility 03/19/25 18:18 Consult: Cardiology Routine Consulting Provider: Saul Kearney Reason for Consult: run of vtach, hypotensive EMERGENT Consult: Yes MD Notified: Yes Date Notified: 03/19/25 Time Notified: 18:19 Method of Notification: Verbal Comments:: Dr. Hernandez called Dr. Kearney 03/19/25 19:33 Consult: Infectious Disease Routine Consulting Provider: Tru Andrade Reason for Consult: undifferentiated shock, unclear etiology, ID c/s requested per ICU physicia EMERGENT Consult: No MD Notified: Yes Date Notified: 03/20/25 Time Notified: 07:50 Method of Notification: Answering Service Reason For Visit: UNDIFFERENTIATED SHOCK, ACUTE HYPOXIC HYPERCAPNIC Diagnosis Discharge Diagnosis (1) Saccular aneurysm: Status: Acute Code(s): I67.1 - Cerebral aneurysm, nonruptured (2) Acute respiratory failure with hypoxia and hypercapnia: Status: Acute Code(s): J96.01 - Acute respiratory failure with hypoxia; J96.02 - Acute respiratory failure with hypercapnia (3) Shock: Status: Acute Code(s): R57.9 - Shock, unspecified (4) Acute kidney injury: Status: Acute Code(s): N17.9 - Acute kidney failure, unspecified Medications at Discharge Home Medications losartan 50 mg tablet 50 mg PO BID BP 09/19/14 Held on 03/26/25. Instructions: Restart on 03/31/2025 melatonin 5 mg tablet 10 mg PO QHS INSOMNIA 09/19/14 bupropion HCl 300 mg 24 hr tablet, extended release 150 mg PO DAILY DEPRESSION 06/11/20 gabapentin 600 mg tablet 600 mg PO QHS SLEEP 06/11/20 mirtazapine 15 mg tablet 15 mg PO QHS INSOMNIA 06/24/20 duloxetine 30 mg capsule,delayed release (Cymbalta) 30 mg PO DAILY DEPRESSION 09/11/24 pramipexole 0.5 mg tablet 0.5 mg PO DINNER RLS 09/11/24 aspirin 81 mg chewable tablet 81 mg PO BID blood thinner #0 tabs 09/17/24 loperamide 2 mg capsule 2 mg PO Q2H PRN PRN DIARRHEA #0 caps 09/17/24 albuterol sulfate 90 mcg/actuation aerosol inhaler 2 inh inhalation Q4H PRN shortness of breath or wheezing 03/18/25 carvedilol 3.125 mg tablet 3.125 mg PO BID 03/18/25 doxycycline hyclate 100 mg capsule 100 mg PO BID abx 03/18/25 indapamide 2.5 mg tablet 2.5 mg PO DAILY diuretic 03/18/25 naproxen sodium 220 mg tablet 440 mg PO DAILY PRN pain 03/18/25 potassium citrate 10 mEq (1,080 mg) tablet,extended release 10 meq PO DAILY 03/18/25 pramipexole 1 mg tablet 1 mg PO QHS restless leg 03/18/25 spironolactone 50 mg tablet 50 mg PO DAILY 03/18/25 Held on 03/26/25. Instructions: Restart on 03/28/2025 Hospital Course Procedures 2-D Echocardiogram, Central line placement, EKG and Intubation Summary of Care Provided Minutes Spent on Discharge: 45 Hospital Course: Ms. Woo is a 75-year-old white female who presents emergency department [facility] on 03/18/2025 with altered mental status. She was last known well at 1600 on March 17. Family reported at the time of her presentation that she had been suffering from some shortness of breath and a dry cough and was undergoing workup as outpatient and was supposed to see Dr. Reddy from cardiology but had not yet made that appointment. A cousin who was at her bedside reported that she complained of being afraid to fall asleep because she felt like she stops breathing when she sleeps and also complained of some nausea. In the emergency department she had slow speech and was noted to have a bruise over the left lateral periorbital region after she fell out of bed. Vital signs on presentation showed pressure 96.4, heart rate 68, blood pressure was 79/63, respiratory rate 16 and pulse ox was 79% on room air. Her CBC was unremarkable. Chemistry panel showed ELVIA with a serum creatinine of 2.2 up from 1.03 which was performed a week ago. She had mild transaminitis with an AST of 86 and ALT of 61. Her lactic acid was 1.1. TSH was normal. Chest x-ray was unremarkable other than bilateral low lung volumes. CT of the brain was unremarkable. UA was not consistent with infection. Cultures were obtained and broad-spectrum antibiotics were initiated. She was given IV fluids with improvement in her blood pressure however she then became hypotensive again and more somnolent. Capnography was indicative of CO2 retention and an ABG was obtained after she was intubated in the emergency department showing a pH of 7.32 with a pCO2 of 59.2 and a bicarb of 30. Pressure after intubation showed was 54/42 and a central line was placed and pressors were started. A CTA had been done the day prior to presentation and showed an infrarenal saccular aneurysm with a maximum diameter of 5.5 cm. 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 Shoulder x-ray was performed and was unremarkable. Ultimately, a CT of the shoulder was performed and it to was unremarkable for identifiable source of infection. Blood cultures were no growth, urine culture was no growth, sputum culture was no growth, respiratory viral panel was unremarkable. She did have some blood out of OG tube and was Gastroccult positive however hemoglobin was stable and no intervention was required. ID was consulted as was critical care medicine and she was maintained on broad-spectrum antibiotics for an extended period of time. Once cultures were unremarkable and imaging on the shoulder was unremarkable she was transition back onto her oral doxycycline. She did require pressors and then was transition to midodrine. An echocardiogram was performed on 03/19/2025 and showed a normal EF at 75% with normal valves, small pericardial effusion and moderate concentric LVH. Cardiology was consulted due to hypotension and hyperdynamic LV and did not there are any cardiac event or vascular event contributing to her overall condition. She was able to be extubated on 03/20/2025. In addition to pressors and midodrine she was on stress dose steroids for brief period of time. Clinically she slowly improved and we were able to wean her midodrine at the time of discharge we are reintroducing her antihypertensives and diuretics. The overall etiology of her shock is unclear at this time as we have no culture positivity. She has recovered well. We did have a discussion about her needing an outpatient polysomnography. She was questioning whether or not we can do it as an inpatient but I did explain to her that insurance does not cover that and cannot as a qualifying test for diagnosing obstructive sleep apnea and obtaining appropriate therapy. She did states she would discuss this with her primary care physician and get a sleep study as an outpatient. I agree this is important. We do not need to change any medications at the time of discharge. We did reintroduce her beta-clara and her diuretic. At discharge we have instructed her to hold her losartan and Aldactone and start her losartan next Monday and her Aldactone on the . Physical Occupational Therapy did evaluate the patient during her course and overall she was functioning to the point where she should be able to do quite well at home. She was concerned so we did do a peer to peer with her insurance company which they declined for [facility]pc facility. Home health was set up. We have advised her to follow-up closely with her primary care physician. With regards to the saccular aneurysm she is to follow-up with her primary care physician for appropriate referral and follow-up after discharge. Ambulatory pulse ox was done prior to discharge and her oxygen saturations on room air at rest were indicative of the fact that she needs 2 L at rest and 3 L with exertion. Home oxygen was set up and she works with this as well. Patient was discharged home in stable condition on 03/26/2025. Discharge diagnoses: Undifferentiated shock Acute hypoxic and hypercapnic respiratory failure HFpEF Mild acute anemia Post critical illness generalized weakness Debility History of left shoulder prosthesis infection Infrarenal saccular abdominal aortic aneurysm-outpatient follow-up required Hyperglycemia-A1c 5.6 Restless leg syndrome Essential hypertension Depression Anxiety Morbid obesity Physical Exam Narrative Patient states overall she is feeling much better today. She states she peed quite a bit of the Lasix we gave her yesterday. No issues overnight. Const alert, oriented x3, no apparent distress, no limitations and well nourished; Negative for average body habitus or healthy appearing Constitutional Narrative: Morbidly obese, white female, sitting on the toilet in the bathroom getting dressed, nurses aide assisting, appears comfortable, nontoxic General Appearance: cooperative, comfortable, well kempt and well developed HEENT normocephalic, head/scalp atraumatic, hearing grossly normal bilaterally and moist oral mucous membranes HEENT Narrative: Mallampati 4, no thrush Eyes EOMs intact bilaterally and conjunctivae normal Eyes Narrative: No scleral icterus Neck supple Neck Narrative: Neck is short and thick, trachea midline no identifiable thyroid enlargement Resp normal respiratory effort, no retractions, no use of accessory muscles and clear to auscultation bilaterally Auscultation: Negative for crackles, rhonchi or wheezes Cardio regular rate, regular rhythm, S1 normal heart sound, S2 normal heart sound, no murmurs, no rub, no gallops and no clicks GI normal to inspection, nondistended, normoactive bowel sounds, soft to palpation and non-tender GI Narrative: Protuberant abdomen Extremity no clubbing, cyanosis or edema Extremity Narrative: 2+ pedal pulses, 2+ radial pulses Skin skin turgor normal, no jaundice, no petechiae and no mottling Neuro moves all extremities and no focal motor deficits Neuro Narrative: Generalized weakness noted more specific proximally than distal and lower extremities more affected than upper extremities Speech: speech normal Motor Exam: general weakness Psych thought process normal, cooperative and affect normal Psych Narrative: Very pleasant, far less anxious that she has been previous days, eye contact is good Appearance: appropriate Weight / BMI Weight Weight: 117 kg Body Mass Index (BMI) 40.4 ABG / Lab / Microbiology Data 03/26/25 07:00 03/26/25 07:00 Laboratory: Laboratory Results - last 24 hr 03/26/25 07:00: WBC 8.5, RBC 3.78 L, Hgb 11.1 L, Hct 35.8 L, MCV 94.7, MCH 29.4, MCHC 31.0 L, RDW Std Deviation 48.9 H, RDW Coeff of Terry 14.1, Plt Count 169, MPV 9.7, Immature Gran % (Auto) 0.600, Neut % (Auto) 78.0 H, Lymph % (Auto) 9.6 L, [place] % (Auto) 10.1 H, Eos % (Auto) 1.5, Baso % (Auto) 0.2, Absolute Neuts (auto) 6.6, Absolute Lymphs (auto) 0.81 L, Nucleated RBC % 0, Sodium 139, Potassium 3.9, Chloride 94 L, Carbon Dioxide 38.2 H, Anion Gap 7, BUN 18, Creatinine 0.68 L, Estim Creat Clear Calc 79.11, Est GFR (MDRD) Non-Af 90, BUN/Creatinine Ratio 26.4 H, Glucose 98, Calcium 8.7 Microbiology: Microbiology 03/18/25 15:18 Blood Culture (Wb) - Anticubital Left Blood Culture - Final No growth in 5 days. 03/18/25 15:18 Blood Culture (Wb) - Anticubital Right Blood Culture - Final No growth in 5 days. 03/18/25 15:24 Urine, Catheterized Urine Culture - Final Culture exhibits no growth. 03/18/25 19:14 Sputum, Induced/Lukens Gram Stain - Final 03/18/25 19:14 Sputum, Induced/Lukens Respiratory Culture - Final Mixed normal respiratory talya. No Streptococcus pneumoniae, beta-hemolytic Streptococcus or Staphylococcus aureus isolated. 03/19/25 08:25 Gastric Fluid/Contents Gastric Occult Blood - Final Occult Blood Positive 03/18/25 20:15 Mucosa - Nasopharyngeal Respiratory Panel (PCR) - Final D/C Instructions Discharge Activity: Return to Normal Activity DC O2, CPAP, BIPAP Needs Home O2 Discharge instructions: Yes Type of respiratory needs?: Oxygen Oxygen frequency: Continuous Continuous oxygen liters per minute: 2 L at rest and 3 L with exertion, At rest and With Ambulation Oxygen liters per minute during Ambulation: 3 DC home with Oxygen: Yes Home O2 MD Review: I have reviewed the oxygen testing, and the patient qualifies for home oxygen equipment and portability. The patient is mobile in the home and the community. Meaningful Use Info Meaningful Use Meaningful Use Diagnoses (Choose all that apply): None applicable Discharge Plan Admission Admit Date/Time: 03/18/25 19:38 Primary Reason for Your Visit: Altered mental status Attending Provider: Karla Bustamante Primary Care Provider: Kamar Grimes Consulting Providers: Emili Lee; Tru Andrade; Wally Waddell; Garrick Staples; Murtaza Hunter; Antwan Gardner; Abdirashid Smith; Reginaldo Fatima; Alden Arcos; Rosalind Key; Jose Angel Handley; Petros Akbar; Lamin Campos; Sarah Hicks; Al Angel; Ruma Barnes; Travis Daley; Butch Ospina; John Shepard; Angel Alva; Alina Garcia; Roopa Sands; Hermann Can; Cuate Rao; Celestino Gallagher; Tacos Hollins; John Quinn; Jodi Al NP; Sahara Chen; Otilia Hernandez Instructions Additional Instructions / Restrictions: 1. Please slowly ease back into your regular routine 2. Please use 2 L of oxygen at rest and 3 L with exertion 3. Please follow-up with your primary care physician and asked that a sleep study be ordered as we are highly suspicious that you do have obstructive sleep apnea at baseline 4. Please hold medications as noted below until instructed to reinitiate 5. Please follow-up with Dr. Reddy as previously instructed Discharge Orders/Prescriptions Prescriptions: Continued melatonin 5 MG tablet 10 mg PO QHS Patient Comments: SLEEP gabapentin 600 MG tablet 600 mg PO QHS bupropion HCl 300 MG tablet extended release 24 hr 150 mg PO DAILY mirtazapine 15 MG tablet 15 mg PO QHS carvedilol 3.125 mg tablet 3.125 mg PO BID potassium citrate 10 mEq (1,080 mg) tablet extended release 10 meq PO DAILY naproxen sodium 220 mg tablet 440 mg PO DAILY PRN (Reason: pain) doxycycline hyclate 100 mg capsule 100 mg PO BID pramipexole 1 mg tablet 1 mg PO QHS indapamide 2.5 mg tablet 2.5 mg PO DAILY albuterol sulfate 90 mcg/actuation HFA aerosol inhaler 2 inh inhalation Q4H PRN (Reason: shortness of breath or wheezing) pramipexole 0.5 mg tablet 0.5 mg PO DINNER duloxetine [Cymbalta] 30 mg capsule,delayed release(DR/EC) 30 mg PO DAILY loperamide 2 mg Capsule 2 mg PO Q2H PRN PRN (Reason: DIARRHEA) Qty: 0 0RF aspirin 81 mg Tablet,Chewable 81 mg PO BID Qty: 0 0RF Held losartan 50 MG tablet 50 mg PO BID Hold Instructions: Restart on 03/31/2025 Patient Comments: BLOOD PRESSURE spironolactone 50 mg tablet 50 mg PO DAILY Hold Instructions: Restart on 03/28/2025 Referrals / Follow Up: Kamar Grimes MD [Primary Care Provider, Family Practice] - Within 1 Week Disposition Disposition (needs filled in before D/C Order can be placed): Home Health Service Charges/Coding Visit Charges Inpatient E&M: 70379 Disch Hosp >30min
--- NOTE | 2025-03-26 13:14 | CASEMGMT ---
Social Work [facility] reported they can start care tomorrow. SW notified the patient. KOBE Diamond
--- NOTE | 2025-03-26 13:16 | CASEMGMT ---
Patient qualifies for home oxygen, script received. JC KENNY in to discuss oxygen setup. Patient states she prefers [employer] for DME. Patient had no further questions. RN EFRAÍN [place] [facility] to [place]'s [place]. Discharge plan updated.
--- NOTE | 2025-03-26 13:42 | PHA.DC_ITS ---
Pharmacy [facility] has performed discharge medication counseling for this patient. The patient was counseled on the following discharge medications and changes in medications for homegoing review. - Losartan 50 mg tablet, Spironolactone 50 mg tablet The Reason for Use, instructions for use, and potential side effects were reviewed for all new medications. The patient's questions regarding all of their medications were answered. The patient was able to verbally demonstrate an understanding of their discharge medications. Medications at Discharge Home Medications losartan 50 mg tablet 50 mg PO BID BP 09/19/14 Held on 03/26/25. Instructions: Restart on 03/31/2025 melatonin 5 mg tablet 10 mg PO QHS INSOMNIA 09/19/14 bupropion HCl 300 mg 24 hr tablet, extended release 150 mg PO DAILY DEPRESSION 06/11/20 gabapentin 600 mg tablet 600 mg PO QHS SLEEP 06/11/20 mirtazapine 15 mg tablet 15 mg PO QHS INSOMNIA 06/24/20 duloxetine 30 mg capsule,delayed release (Cymbalta) 30 mg PO DAILY DEPRESSION 09/11/24 pramipexole 0.5 mg tablet 0.5 mg PO DINNER RLS 09/11/24 aspirin 81 mg chewable tablet 81 mg PO BID blood thinner #0 tabs 09/17/24 loperamide 2 mg capsule 2 mg PO Q2H PRN PRN DIARRHEA #0 caps 09/17/24 albuterol sulfate 90 mcg/actuation aerosol inhaler 2 inh inhalation Q4H PRN shortness of breath or wheezing 03/18/25 carvedilol 3.125 mg tablet 3.125 mg PO BID 03/18/25 doxycycline hyclate 100 mg capsule 100 mg PO BID abx 03/18/25 indapamide 2.5 mg tablet 2.5 mg PO DAILY diuretic 03/18/25 naproxen sodium 220 mg tablet 440 mg PO DAILY PRN pain 03/18/25 potassium citrate 10 mEq (1,080 mg) tablet,extended release 10 meq PO DAILY 03/18/25 pramipexole 1 mg tablet 1 mg PO QHS restless leg 03/18/25 spironolactone 50 mg tablet 50 mg PO DAILY 03/18/25 Held on 03/26/25. Instructions: Restart on 03/28/2025
== END 2025-03-26 15:22 | disposition home health service (06) | DRG 208 ==
LOC: ED 18:01 → ICU 19:41 → PCU 03-24 06:42
PROVIDERS: Family Medicine; Internal Medicine Critical Care Medicine; Student in an Organized Health Care Education/Training Program; Admitting Provider Internal Medicine; Emergency Provider Emergency Medicine; PCP Family Medicine; Visit Provider Internal Medicine
DX: J96.02 Acute respiratory failure with hypercapnia (principal); G92.8 Other toxic encephalopathy; R57.9 Shock, unspecified; I50.32 Chronic diastolic (congestive) heart failure; Z68.41 Body mass index [BMI] 40.0-44.9, adult; N17.9 Acute kidney failure, unspecified; E87.1 Hypo-osmolality and hyponatremia; I11.0 Hypertensive heart disease with heart failure; G25.81 Restless legs syndrome; I71.43 Infrarenal abdominal aortic aneurysm, without rupture; D64.9 Anemia, unspecified; F32.A Depression, unspecified; J96.01 Acute respiratory failure with hypoxia; E66.01 Morbid (severe) obesity due to excess calories; S05.12XA Contusion of eyeball and orbital tissues, left eye, initial encounter; E86.0 Dehydration; E78.00 Pure hypercholesterolemia, unspecified; F41.9 Anxiety disorder, unspecified; E87.8 Other disorders of electrolyte and fluid balance, not elsewhere classified; W06.XXXA Fall from bed, initial encounter; R19.5 Other fecal abnormalities; G47.33 Obstructive sleep apnea (adult) (pediatric); Z66 Do not resuscitate; T68.XXXA Hypothermia, initial encounter; T84.59XD Infection and inflammatory reaction due to other internal joint prosthesis, subsequent encounter; Y79.2 Prosthetic and other implants, materials and accessory orthopedic devices associated with adverse incidents; Z68.38 Body mass index [BMI] 38.0-38.9, adult; R53.81 Other malaise; Z79.899 Other long term (current) drug therapy; Z87.891 Personal history of nicotine dependence
CPT/HCPCS: 31500; 31720; 36415; 36600; 51702; 70450; 71045; 71046; 71275; 73030; 73200; 74018; 74174; 80048; 80053; 80202; 81001; 82271; 82436; 82550; 82570; 82803; 82962; 83605; 83880; 83935; 84133; 84145; 84300; 84443; 84478; 84540; 85025; 85610; 85652; 85730; 86140; 87040; 87070; 87086; 87205; 87633; 93005; 93308; 94002; 94003; 94640; 94660; 94668; 94762; 97116; 97162; 97166; 97530; 97535; 97802; 97803; 99252; 99285; C1894; J2185; Q9957; Q9967; A4216; C1751; C8924; G0463; J1938

== ENCOUNTER → 2025-04-09 | Outpatient (CLI) | payer MEDICARE, SELFPAY ==
[2025-04-09 18:21] LABS: Hematocrit 44.8 % (37-47); Hemoglobin 14.5 g/dL (12.0-15.0); Immature Granulocytes Count 0.090 X10^3/uL (0.0-0.0); Mean Corp Hgb Conc 32.4 g/dL (32-36); Mean Corpuscular Volume 90.7 fL (81-99); Mean Platelet Vol. 11.1 fl (6.2-12.0); NRBC Flagged by Analyzer 0 % (0-5); Platelet Count 261 K/mm3 (150-450); RBC Distribution Width CV 13.7 % (11.6-14.6); RBC Distribution Width SD 45.5 fl (35.1-43.9); Red Blood Count 4.94 M/mm3 (4.2-5.4); White Blood Count 11.0 K/mm3 (4.4-11.0)
[2025-04-09 18:44] LABS: Pro- Brain NATRIURETIC PEPTIDE 198 pg/mL (<=1800)
[2025-04-09 19:34] LABS: AST(SGOT) 39 U/L (<=31); Alanine Aminotransfer ALT/SGPT 25 U/L (<=34); Albumin, Serum 4.1 g/dL (3.4-4.8); Alkaline Phosphatase 161 U/L (35-104); Anion Gap 11 (5-15); BUN 47 mg/dL (4-19); BUN/Creat Ratio 29.4 RATIO (10-20); Calcium,Total 10.3 mg/dL (7.6-11.0); Carbon Dioxide 46.1 mmol/L (21.0-32.0); Chloride 71 mmol/L (98-108); Globulin 3.4 g/dL (2.2-4.2); Glucose 116 mg/dL (70-99); Potassium 4.6 mmol/L (3.3-5.1)
== END | disposition home or self-care (01) ==
LOC: MFPLAB 15:49
PROVIDERS: PCP Family Medicine; Visit Provider Family Medicine
DX: I50.31 Acute diastolic (congestive) heart failure (principal)
CPT/HCPCS: 36415; 80053; 83880; 85025

== ENCOUNTER → 2025-04-16 | Outpatient (CLI) | payer MEDICARE, SELFPAY ==
[2025-04-16 19:38] LABS: AST(SGOT) 45 U/L (<=31); Alanine Aminotransfer ALT/SGPT 29 U/L (<=34); Albumin, Serum 3.9 g/dL (3.4-4.8); Alkaline Phosphatase 140 U/L (35-104); Anion Gap 7 (5-15); BUN 81 mg/dL (4-19); BUN/Creat Ratio 42.5 RATIO (10-20); Calcium,Total 9.8 mg/dL (7.6-11.0); Carbon Dioxide 44.0 mmol/L (21.0-32.0); Globulin 3.0 g/dL (2.2-4.2); Glucose 108 mg/dL (70-99); Potassium 5.1 mmol/L (3.3-5.1)
[2025-04-16 19:51] LABS: Osmolality, Serum 300 mOsm/KG (280-301)
[2025-04-17 08:12] LABS: Chloride 74 mmol/L (98-108)
== END | disposition home or self-care (01) ==
LOC: LAB 16:33
PROVIDERS: PCP Family Medicine; Referring Provider Family Medicine; Visit Provider Family Medicine
DX: E87.1 Hypo-osmolality and hyponatremia (principal)
CPT/HCPCS: 36415; 80053; 83930

== ENCOUNTER 2025-04-18 13:41 | Inpatient (IN) | payer MEDICARE, MEDICAID, SELFPAY ==
[2025-04-18] VITALS (9 sets, daily range): BP systolic 120–151; BP diastolic 75–103; PULSE 81–87; RESP 16–30; TEMP 36.6–37; O2SAT 95–99; BMI 36.8; BMI 36.7
[2025-04-18 15:45] LABS: Hematocrit 40.0 % (37-47); Hemoglobin 13.1 g/dL (12.0-15.0); Immature Granulocytes Count 0.060 X10^3/uL (0.0-0.0); Mean Corp Hgb Conc 32.8 g/dL (32-36); Mean Corpuscular Volume 89.1 fL (81-99); Mean Platelet Vol. 11.7 fl (6.2-12.0); NRBC Flagged by Analyzer 0 % (0-5); Platelet Count 160 K/mm3 (150-450); RBC Distribution Width CV 13.9 % (11.6-14.6); RBC Distribution Width SD 45.1 fl (35.1-43.9); Red Blood Count 4.49 M/mm3 (4.2-5.4); White Blood Count 10.0 K/mm3 (4.4-11.0)
[2025-04-18 16:14] LABS: AST(SGOT) 50 U/L (<=31); Alanine Aminotransfer ALT/SGPT 32 U/L (<=34); Albumin, Serum 3.7 g/dL (3.4-4.8); Alkaline Phosphatase 123 U/L (35-104); Anion Gap 6 (5-15); BUN 53 mg/dL (4-19); BUN/Creat Ratio 40.9 RATIO (10-20); Calcium,Total 9.7 mg/dL (7.6-11.0); Carbon Dioxide 42.5 mmol/L (21.0-32.0); Chloride 73 mmol/L (98-108); Estimated Creatinine Clearance 46.24 ml/min (50-250); Globulin 3.0 g/dL (2.2-4.2); Glucose 102 mg/dL (70-99); Potassium 5.4 mmol/L (3.3-5.1)
--- NOTE | 2025-04-18 16:26 | EX.ED.DYSGE1 ---
HPI History of Present Illness Chief Complaint: Abn Labs Detail of Chief Complaint: Abnormal, weak, frequent falls Informant: patient and family (Sister and granddaughter) Onset/Context/Timing Onset: - (Patient has been falling the past week. Sodium has been low the past several days.) Context: Sudden Onset Timing: Continuous Quality: Patient with paresthesias, frequent falls, general weakness Location: Presents from home by ambulance Current Severity: Moderate Maximum Severity: Moderate Worsened by: Patient was recently prescribed furosemide on top of her thiazide diuretic Relieved by: Nothing Associated Symptoms Associated Symptoms: HPI narrative Narrative Narrative: Patient is a 75-year-old woman who lives alone. She has history of obstructive sleep apnea, lung disease, hypertension, insomnia, diarrhea and depression. Patient had a sodium of 125 and chloride of 74 on April 16. Furosemide was discontinued at that time. Last month her sodium was normal, 139. Sodium on March 25 was 147. Patient presents because of abnormal labs. It was further determined that she has had frequent falls and has multiple bruises on her legs because of falls. She cannot walk more than 10 to 15 feet using her walker without collapsing. She is not having to eat or drink for the last 2 to 3 days. She is consuming however water between 6-10 bottles a day. Patient complains of thirst. Patient denies increased urination. She denies dysuria or hematuria. Patient states she was placed on furosemide because several weeks ago she had trouble sleeping at night because of shortness of breath. She denied orthopnea or PND. She denies chest discomfort. Patient does have history of chronic diarrhea and is on Imodium. Sister was angry with me because she states she lives alone and she cannot go home. Sister fabricated some events. The sister was challenged. Granddaughter was in the room. She acknowledged that the sister was changing her rendition of what happened and exaggerated some events. 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 Essential (primary) hypertension Debility Infection and inflammatory reaction due to other internal joint prosthesis, initial encounter Insomnia MRSA (methicillin resistant staph aureus) culture positive Wears glasses Post-menopausal Depression Anxiety Walker as ambulation aid Ambulates with cane Arthritis High cholesterol Back pain Restless legs Former smoker Shortness of breath on exertion History of pain when walking History of edema Hypertension Home Medications ?Medication ?Instructions ?Recorded ?Last Taken ?Type losartan 50 mg tablet 50 mg PO BID BP 09/19/14 09/13/24 History Held on 03/26/25. Instructions: Restart on 03/31/2025 melatonin 5 mg tablet 10 mg PO QHS INSOMNIA 09/19/14 Unknown History bupropion HCl 300 mg 24 hr tablet, 150 mg PO DAILY DEPRESSION 06/11/20 09/13/24 History extended release gabapentin 600 mg tablet 600 mg PO QHS SLEEP 06/11/20 Unknown History mirtazapine 15 mg tablet 15 mg PO QHS INSOMNIA 06/24/20 06/23/20 20:00 History duloxetine 30 mg capsule,delayed 30 mg PO DAILY DEPRESSION 09/11/24 09/13/24 History release (Cymbalta) aspirin 81 mg chewable tablet 81 mg PO BID blood thinner #0 tabs 09/17/24 Unknown Rx loperamide 2 mg capsule 2 mg PO Q2H PRN PRN DIARRHEA #0 09/17/24 Unknown Rx caps albuterol sulfate 90 mcg/actuation 2 inh inhalation Q4H PRN shortness 03/18/25 Unknown History aerosol inhaler of breath or wheezing doxycycline hyclate 100 mg capsule 100 mg PO BID abx 03/18/25 Unknown History indapamide 2.5 mg tablet 2.5 mg PO DAILY diuretic 03/18/25 Unknown History naproxen sodium 220 mg tablet 440 mg PO DAILY PRN pain 03/18/25 Unknown History potassium citrate 10 mEq (1,080 10 meq PO DAILY 03/18/25 Unknown History mg) tablet,extended release pramipexole 1 mg tablet 1 mg PO QHS restless leg 03/18/25 Unknown History spironolactone 50 mg tablet 50 mg PO DAILY 03/18/25 Unknown History Held on 03/26/25. Instructions: Restart on 03/28/2025 carvedilol 3.125 mg tablet 1.56 mg PO BID 04/16/25 Unknown History lactobacillus combination no.9 4 4,000 mmu cells PO QDAY 04/16/25 Unknown History billion cell capsule (Adult 50 Plus Probiotic) magnesium aspart,citrate,oxide mg PO 04/16/25 Unknown History ondansetron HCl 4 mg tablet 4 mg PO Q8 PRN 04/16/25 Unknown History pramipexole 0.5 mg tablet 0.5 mg PO DINNER RLS 04/16/25 Unknown History Allergy/AdvReac Type Severity Reaction Status Date / Time Penicillins Allergy Anaphylaxis Verified 04/18/25 13:45 Family History Mother Heart disease Diabetes Brother Heart disease Diabetes Brother Heart disease pacemaker Sister Atrial fibrillation Surgical History History of reverse total replacement of right shoulder joint History of surgery Hx of colonoscopy Hx of right cataract extraction Hx of left cataract extraction History of partial colectomy Hx of appendectomy Hx of total hip arthroplasty Hx of total shoulder replacement Hx of lumbar discectomy Hx of total shoulder replacement Hx of total hip arthroplasty Social History household members: none Smoking Status: Former smoker how long ago did patient quit smokin years ago alcohol intake: never substance use type: does not use caffeine: No ROS ROS ED Constitutional Constitutional ED: Reports weight loss; Denies chills, fever(s), subjective or sweats Eyes Eyes: Denies blurry vision or change in vision ENT ENT ED: Denies ear pain or rhinorrhea Cardiovascular Cardiovascular: Denies chest pain or palpitations Respiratory/Chest Respiratory/Chest: Denies cough, dyspnea or dyspnea on exertion Gastrointestinal Gastrointestinal: Reports diarrhea; Denies abdominal pain, nausea or vomiting Genitourinary Genitourinary ED: Denies dysuria, hematuria or urinary frequency Musculoskeletal Musculoskeletal: Denies arthralgias or myalgias Neurologic Neurologic: Reports paresthesias RUE, RLE, LUE and LLE and weakness Psychiatric Psychiatric: Denies anxiety or depression Endocrine Endocrinology: Denies cold intolerance or heat intolerance Hematologic/Lymphatic Hematologic/Lymphatic: Reports systems reviewed and no addt'l complaints, except as documented EXAM Physical Exam Const Vital Signs: 04/18/25 13:42 04/18/25 14:17 04/18/25 14:57 Temperature 98.6 F Temperature Source Oral Pulse Rate 84 83 Pulse Rate [Lying] Pulse Rate [Sitting (for 1 minute prior to obtaining)] Respiratory Rate 30 H 18 Respiratory Effort Normal Non-Labored Respiratory Pattern Normal Blood Pressure 143/78 H 120/85 H Blood Pressure [Lying] Blood Pressure [Sitting (for 1 minute prior to obtaining)] Blood Pressure Mean 99 96 Blood Pressure Mean [Lying] Blood Pressure Mean [Sitting (for 1 minute prior to obtaining)] Pulse Ox 97 95 Oxygen Delivery Method Room Air Nasal Cannula Oxygen Flow Rate (L/min) 2 04/18/25 15:00 04/18/25 15:28 04/18/25 16:00 Temperature Temperature Source Pulse Rate 84 84 Pulse Rate [Lying] 82 Pulse Rate [Sitting (for 1 minute prior to obtaining)] 86 Respiratory Rate 24 H 30 H Respiratory Effort Respiratory Pattern Blood Pressure 140/103 H 151/101 H Blood Pressure [Lying] 150/75 H Blood Pressure [Sitting (for 1 minute prior to obtaining)] 151/101 H Blood Pressure Mean 115 117 Blood Pressure Mean [Lying] 100 Blood Pressure Mean [Sitting (for 1 minute prior to obtaining)] 117 Pulse Ox 97 97 Oxygen Delivery Method Nasal Cannula Nasal Cannula Oxygen Flow Rate (L/min) 2 2 Positive well nourished, well developed and obese General Appearance ED: well developed and NAD; Negative for cyanotic or diaphoretic Nutritional Appearance: obese HEENT Reports dry mucous membranes HEENT Narrative: Head is atraumatic normocephalic. Ears normal. Nares patent. Mouth ED: Yes dry mucous membranes Mouth: dry mucous membranes Eyes PERRL and EOMs intact bilaterally General Eye ED: Negative for pale conjunctiva or scleral icterus Neck no lymphadenopathy and supple Chest Wall inspection of chest normal and palpation of chest normal Resp normal respiratory effort and clear to auscultation bilaterally Cardio regular rate, regular rhythm, S1 normal heart sound, S2 normal heart sound and no murmurs GI normal to inspection, nondistended, normoactive bowel sounds, non-tender, non-distended and no masses; Negative for hepatosplenomegaly Auscultation: normoactive bowel sounds Back/Spine no CVA tenderness Extremity Negative for normal to inspection Extremity Narrative: She has full active range of motion of right and left knee and right and left ankle. There is no point bony tenderness over the patella, joint line, lateral medial malleolus. General Extremety ED: Negative for tenderness Neuro oriented x3, CN's II-XII intact bilaterally and no sensory deficits noted Neuro Narrative: There is no clonus Babinski sign noted. Sensorium / Orientation: alert Motor Exam: strength 5/5 throughout Psych mental status grossly normal Skin Skin Narrative: Patient has multiple bruises abrasions to the right and left knee. MDM MDM MDM Narrative Medical decision making narrative: Patient with hyponatremia and possibly symptomatic due to that. Will repeat labs. Orthostatics were ordered as well as ambulation patient states she could not because she did not feel comfortable standing and unsteady. Patient has not been on steroids recently. There is no concern for Hammad's disease. She in my opinion does not have [place] syndrome either. I believe her symptoms are all due to the fact that she is on a thiazide diuretic and was placed on a loop diuretic. Lab Data Attestation: I reviewed the patient's lab results. Lab results narrative: CBC is unremarkable. Comprehensive metabolic panel was a sodium 121 and chloride of 73 with a potassium of 5.4. CO2 is elevated and was normal 1 month ago. Suspect this is due to hypochloremic metabolic alkalosis. Labs: Laboratory Results - last 24 hr 04/18/25 14:05 WBC 10.0 RBC 4.49 Hgb 13.1 Hct 40.0 MCV 89.1 MCH 29.2 MCHC 32.8 RDW Std Deviation 45.1 H RDW Coeff of Terry 13.9 Plt Count 160 MPV 11.7 Immature Gran % (Auto) 0.600 Neut % (Auto) 77.8 H Lymph % (Auto) 10.9 L Collin % (Auto) 8.9 Eos % (Auto) 1.6 Baso % (Auto) 0.2 Absolute Neuts (auto) 7.8 H Absolute Lymphs (auto) 1.09 Nucleated RBC % 0 Sodium 121 L Potassium 5.4 H Chloride 73 L* Carbon Dioxide 42.5 H Anion Gap 6 BUN 53 H Creatinine 1.30 H Estim Creat Clear Calc 46.24 L Est GFR (MDRD) Non-Af 43 L BUN/Creatinine Ratio 40.9 H Glucose 102 H Calcium 9.7 Total Bilirubin 0.41 AST 50 H ALT 32 Alkaline Phosphatase 123 H Total Protein 6.6 Albumin 3.7 Globulin 3.0 Albumin/Globulin Ratio 1.2 Management Discussion w/another healthcare provider: Hospitalist (Dr. Simms was paged for admission for symptomatic hyponatremia. Suspect this is due to the fact she is on a loop diuretic and thiazide diuretic and the fact that she has been drinking water) Discharge Plan Dx/Rx/DC Orders Clinical Impression: Hyponatremia syndrome, Hypochloremic alkalosis, Inability to walk, Hypertension, Depression Disposition Disposition: Acute Care Hospital [facility]
--- NOTE | 2025-04-18 16:58 | ED.RN ---
RN at bedside performing orthostatic vitals on pt as doctor had ordered. When sitting pt up from lying position, pt stated she started feeling dizzy. Pt states she does not want to stand or ambulate at this time due to this. RN suggested pt stand at side of bed and if unable to do so we can sit back down in the bed, pt still refuses. Doctor notified of this.
--- NOTE | 2025-04-18 17:17 | PCM.HP.STD ---
HPI - General General Date of Admission: 04/18/25 Date of Service: 04/18/25 Chief Complaint: Worsening hyponatremia and falls HPI Narrative OSCAR ROMAN, is a 75 F who presented to [facility] on 04/18/2025 with worsening hyponatremia and falls at home. Patient lives at home alone. Medical history significant for class II obesity with NEEL, chronic HFpEF, hypertension, anxiety/depression and restless leg syndrome. Patient was recently hospitalized here from 03/18-03/26 for acute combined respiratory failure and undifferentiated shock. Was suspected undiagnosed sleep apnea was contributing to the respiratory failure. She did require 2 L nasal cannula at rest and 3 with exertion on discharge. She did have generalized weakness during the hospitalization but was able to be discharged home with home health care. Notably a peer to peer was done for SNF per the patient request but this was denied. Patient had BMP ordered by her PCP drawn on 04/09 that showed sodium 128, chloride 71, bicarb 46, creatinine 1.61 (baseline 0.7-0.8). Her PCP instructed her to discontinue Lasix and losartan but she continue these until 04/15. Repeat BMP was drawn 04/16 that showed sodium 125, chloride 74, bicarb 44, creatinine 1.91. She saw Dr. Reddy with cardiology in the office on 04/16 who recommended the patient continue to hold Lasix and losartan. Family noted that patient has been weaker recently and has had a few falls at home with bruising on her legs, so they brought her to the ED for further evaluation. Repeat BMP today showed sodium 121, potassium 5.4, chloride 73, bicarb 42, creatinine 1.30. Given her worsening hyponatremia and weakness with falls at home, hospitalist was contacted for admission. I saw the patient at bedside in the ED. Patient was fatigued appearing but otherwise laying back comfortably in bed and in no acute distress. She was answering questions appropriately for me. Noted that she has been drinking significant amounts of water recently because she has been so thirsty from the diuretic. She has not taken the diuretic since 04/15 but continues to feel quite thirsty. Notes that she has not felt very hungry and does not eat very much. She does feel quite weak in her legs and does not feel comfortable ambulating without assistance. No other acute concerns currently. Will be admitted for further management. 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 Essential (primary) hypertension Debility Infection and inflammatory reaction due to other internal joint prosthesis, initial encounter Insomnia MRSA (methicillin resistant staph aureus) culture positive Wears glasses Post-menopausal Depression Anxiety Walker as ambulation aid Ambulates with cane Arthritis High cholesterol Back pain Restless legs Former smoker Shortness of breath on exertion History of pain when walking History of edema Hypertension Home Medications ?Medication ?Instructions ?Recorded ?Last Taken ?Type losartan 50 mg tablet 50 mg PO BID BP 09/19/14 09/13/24 History melatonin 5 mg tablet 10 mg PO QHS INSOMNIA 09/19/14 04/17/25 History bupropion HCl 300 mg 24 hr tablet, 150 mg PO DAILY DEPRESSION 06/11/20 04/18/25 History extended release gabapentin 600 mg tablet 600 mg PO QHS SLEEP 06/11/20 04/17/25 History mirtazapine 15 mg tablet 15 mg PO QHS INSOMNIA 06/24/20 04/17/25 History duloxetine 30 mg capsule,delayed 30 mg PO DAILY DEPRESSION 09/11/24 04/18/25 History release (Cymbalta) aspirin 81 mg chewable tablet 81 mg PO BID blood thinner #0 tabs 09/17/24 04/18/25 Rx loperamide 2 mg capsule 2 mg PO Q2H PRN PRN DIARRHEA #0 09/17/24 Unknown Rx caps albuterol sulfate 90 mcg/actuation 2 inh inhalation Q4H PRN shortness 03/18/25 Unknown History aerosol inhaler of breath or wheezing doxycycline hyclate 100 mg capsule 100 mg PO BID abx 03/18/25 04/18/25 History indapamide 2.5 mg tablet 2.5 mg PO DAILY diuretic 03/18/25 Unknown History naproxen sodium 220 mg tablet 440 mg PO DAILY PRN pain 03/18/25 Unknown History potassium citrate 10 mEq (1,080 10 meq PO DAILY 03/18/25 Unknown History mg) tablet,extended release pramipexole 1 mg tablet 1 mg PO QHS restless leg 03/18/25 Unknown History spironolactone 50 mg tablet 50 mg PO DAILY diuretic 03/18/25 04/18/25 History carvedilol 3.125 mg tablet 1.56 mg PO BID bp 04/16/25 04/18/25 History lactobacillus combination no.9 4 4,000 mmu cells PO QDAY GI health 04/16/25 Unknown History billion cell capsule (Adult 50 Plus Probiotic) magnesium aspart,citrate,oxide mg PO supplement (?) 04/16/25 Unknown History ondansetron HCl 4 mg tablet 4 mg PO Q8 PRN nausea and vomiting 04/16/25 Unknown History pramipexole 0.5 mg tablet 0.5 mg PO DINNER RLS 04/16/25 Unknown History Allergy/AdvReac Type Severity Reaction Status Date / Time Penicillins Allergy Anaphylaxis Verified 04/18/25 13:45 Family History Mother Heart disease Diabetes Brother Heart disease Diabetes Brother Heart disease pacemaker Sister Atrial fibrillation Surgical History History of reverse total replacement of right shoulder joint History of surgery Hx of colonoscopy Hx of right cataract extraction Hx of left cataract extraction History of partial colectomy Hx of appendectomy Hx of total hip arthroplasty Hx of total shoulder replacement Hx of lumbar discectomy Hx of total shoulder replacement Hx of total hip arthroplasty Social History household members: none Smoking Status: Former smoker how long ago did patient quit smokin years ago alcohol intake: never substance use type: does not use caffeine: No ROS Constitutional Constitutional: Reports fatigue and weakness; Denies chills or fever(s) Eyes Eyes: Denies change in vision Cardiovascular Cardiovascular: Denies chest pain Respiratory/Chest Respiratory/Chest: Denies shortness of breath at rest Gastrointestinal Gastrointestinal: Denies abdominal pain, nausea or vomiting Genitourinary Genitourinary: Denies dysuria Musculoskeletal Musculoskeletal: Denies arthralgias or myalgias Neurologic Neurologic: Denies dizziness, focal weakness, headache(s), numbness or tingling Vital Signs Vital Signs Vital Signs: 04/18/25 13:42 04/18/25 14:17 04/18/25 14:57 Temperature 98.6 F Temperature Source Oral Pulse Rate 84 83 Pulse Rate [Lying] Pulse Rate [Sitting (for 1 minute prior to obtaining)] Respiratory Rate 30 H 18 Respiratory Effort Normal Non-Labored Respiratory Pattern Normal Blood Pressure 143/78 H 120/85 H Blood Pressure [Lying] Blood Pressure [Sitting (for 1 minute prior to obtaining)] Blood Pressure Mean 99 96 Blood Pressure Mean [Lying] Blood Pressure Mean [Sitting (for 1 minute prior to obtaining)] Pulse Ox 97 95 Oxygen Delivery Method Room Air Nasal Cannula Oxygen Flow Rate (L/min) 2 04/18/25 15:00 04/18/25 15:28 04/18/25 16:00 Temperature Temperature Source Pulse Rate 84 84 Pulse Rate [Lying] 82 Pulse Rate [Sitting (for 1 minute prior to obtaining)] 86 Respiratory Rate 24 H 30 H Respiratory Effort Respiratory Pattern Blood Pressure 140/103 H 151/101 H Blood Pressure [Lying] 150/75 H Blood Pressure [Sitting (for 1 minute prior to obtaining)] 151/101 H Blood Pressure Mean 115 117 Blood Pressure Mean [Lying] 100 Blood Pressure Mean [Sitting (for 1 minute prior to obtaining)] 117 Pulse Ox 97 97 Oxygen Delivery Method Nasal Cannula Nasal Cannula Oxygen Flow Rate (L/min) 2 2 Weight Weight: 106.5 kg Body Mass Index (BMI) 36.8 Physical Exam Const alert, oriented x3 and no apparent distress Constitutional Narrative: Elderly female, class II obesity, fatigued appearing but otherwise sitting back fairly comfortably in bed, answering questions appropriately, in no acute distress. General Appearance: cooperative and comfortable HEENT normocephalic, head/scalp atraumatic, hearing grossly normal bilaterally, nasal mucous membranes and turbinates normal and moist oral mucous membranes Eyes PERRL, EOMs intact bilaterally and conjunctivae normal Neck full ROM Chest inspection of chest normal Resp normal respiratory effort, normal air movement, no use of accessory muscles and clear to auscultation bilaterally Cardio regular rate, regular rhythm, no murmurs and peripheral pulses 2+ throughout GI normal to inspection, nondistended, normoactive bowel sounds, soft to palpation, non-tender and non-distended Back/Spine normal ROM Extremity normal to inspection and no pedal edema Skin no rashes or lesions noted Neuro Neuro Narrative: Generalized lower extremity weakness noted. Psych mental status grossly normal Results Lab / Micro Data 04/18/25 14:05 04/18/25 14:05 Labs: Laboratory Results - last 24 hr 04/18/25 14:05: WBC 10.0, RBC 4.49, Hgb 13.1, Hct 40.0, MCV 89.1, MCH 29.2, MCHC 32.8, RDW Std Deviation 45.1 H, RDW Coeff of Terry 13.9, Plt Count 160, MPV 11.7, Immature Gran % (Auto) 0.600, Neut % (Auto) 77.8 H, Lymph % (Auto) 10.9 L, [place] % (Auto) 8.9, Eos % (Auto) 1.6, Baso % (Auto) 0.2, Absolute Neuts (auto) 7.8 H, Absolute Lymphs (auto) 1.09, Nucleated RBC % 0, Sodium 121 L, Potassium 5.4 H, Chloride 73 L*, Carbon Dioxide 42.5 H, Anion Gap 6, BUN 53 H, Creatinine 1.30 H, Estim Creat Clear Calc 46.24 L, Est GFR (MDRD) Non-Af 43 L, BUN/Creatinine Ratio 40.9 H, Glucose 102 H, Calcium 9.7, Total Bilirubin 0.41, AST 50 H, ALT 32, Alkaline Phosphatase 123 H, Total Protein 6.6, Albumin 3.7, Globulin 3.0, Albumin/Globulin Ratio 1.2 Assessment & Plan Assessment/Plan (1) Hyponatremia: PLAN: Plan Patient is a 75-year-old female who presented to [facility] ED on 04/18/2025 with worsening hyponatremia and weakness with falls at home. 1. Hyponatremia ? Admit under inpatient status to PCU. Nephrology consulted. Baseline sodium around 140; remained around 140 during recent complicated hospitalization from 03/18-03/26. Dropped significantly to sodium 128 on 04/09. Was instructed to discontinue home Lasix on 04/09 but continued until 04/15. Repeat sodium 125 on 04/16 and has continued to worsen to sodium 121 on 04/18. Severe hyperchloremia with chloride level 71-74 on recent labs. Home Lasix would seem to be a significant contributor. Patient reports drinking significant amounts of water for the past week or two due to feeling dehydrated so this may be contributing. Reports fairly poor food intake over that time. Notably patient was on stress dose steroids for 4 days during recent hospitalization; seems less likely but cannot rule out some degree of adrenal insufficiency. A.m. cortisol level ordered. Serum osmolality, urine osmolality and urine sodium ordered. Will give 1 L of normal saline over 4 hours this evening. Follow-up a.m. BMP. Appreciate further nephrology recommendations. 2. ELVIA with mild hyperkalemia, severe non-anion gap metabolic acidosis, severe hypochloremia ? Nephrology consulted as above. Creatinine 1.30, potassium 5.4 on admit. Baseline creatinine around 0.7-0.8. Bicarb 42. Chloride level 71-74 on recent labs as above. Notably creatinine was 1.6-1.9 on recent labs and has improved to 1.30 with discontinuing home Lasix and losartan. Suspect prerenal etiology due to overdiuresis. Given 1 L of IV fluids on admit as above. Hold home Lasix, losartan, indapamide and spironolactone. Severe NAGMA is presumed secondary to chronic respiratory failure as below. Monitor daily BMP and urine output. 3. 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 Patient with recent complicated hospitalization and required intubation for combined respiratory failure from 03/18-03/20. Was discharged home on 2 L nasal cannula at rest and 3 L with exertion. Has suspected NEEL and recommendation was for outpatient workup for this which has not been completed yet. Stable on 2 L nasal cannula at rest in the ED. Monitor. Continue home albuterol inhaler as needed. 4. Chronic HFpEF, hypertension ? Echo during recent hospitalization on 03/19 showed EF 75%, moderate concentric LV hypertrophy, no other concerning findings. Mildly hypertensive to the 140s systolic in the ED. Holding home Lasix, losartan, indapamide and spironolactone as above. Okay to continue home Coreg. 5. Acute on chronic debility with recent falls ? PT/OT/case management consulted. Patient lives at home alone. She was able to be discharged home with home health care after recent prolonged hospitalization. Has had worsening functional status with small falls over the past week or so per family. Appreciate therapy recommendations. 6. Anxiety, depression, insomnia, restless leg syndrome, neuropathy ? Continue home bupropion, duloxetine, gabapentin, pramipexole, mirtazapine and melatonin. 7. Class II obesity ? BMI 36 on admit. Complicates hospital course and care. DVT prophylaxis: Heparin subcu CODE STATUS: DNR CCA, okay to intubate Expected disposition: TBD Total clinical time spent by myself addressing the patient's medical issues, reviewing all the data, and collaborating with patient's care team: 86 minutes. Charges/Coding Visit Charges Inpatient E&M: 05962 Init Hosp L3
[2025-04-18] MEDS: 0.9% Normal Saline (1000mL) 1,000 ML 250 ML IV (20:07)
[2025-04-18 20:43] LABS: Osmolality, Serum 310 mOsm/KG (280-301)
[2025-04-18] MEDS: Heparin Injection (Vial) 5,000 UNIT/ML VIAL 5000 UNIT SC (21:14)
[2025-04-18] MEDS: MELATONIN 10 MG TABLET PO (21:14)
[2025-04-19] VITALS (22 sets, daily range): BP systolic 70–142; BP diastolic 41–93; PULSE 68–89; RESP 14–28; TEMP 36.3–36.7; O2SAT 93–100
[2025-04-19 06:50] LABS: Hematocrit 36.7 % (37-47); Hemoglobin 12.1 g/dL (12.0-15.0); Mean Corp Hgb Conc 33.0 g/dL (32-36); Mean Corpuscular Volume 89.3 fL (81-99); Mean Platelet Vol. 10.6 fl (6.2-12.0); Platelet Count 129 K/mm3 (150-450); RBC Distribution Width CV 14.3 % (11.6-14.6); RBC Distribution Width SD 47.1 fl (35.1-43.9); Red Blood Count 4.11 M/mm3 (4.2-5.4); White Blood Count 7.7 K/mm3 (4.4-11.0)
[2025-04-19 07:11] LABS: Cholesterol 206 mg/dL (<=200); Low Density Lipoprotein Calc. 113 mg/dL; Triglycerides 125 mg/dL; Very Low Density Lipoprotein 25 mg/dL (5-40); cholesterol:hdl ratio screen 2.89
[2025-04-19 07:12] LABS: Anion Gap 4 (5-15); BUN 41 mg/dL (4-19); BUN/Creat Ratio 30.5 RATIO (10-20); Calcium,Total 9.4 mg/dL (7.6-11.0); Carbon Dioxide 40.9 mmol/L (21.0-32.0); Chloride 78 mmol/L (98-108); Estimated Creatinine Clearance 45.15 ml/min (50-250); Glucose 105 mg/dL (70-99); Potassium 4.4 mmol/L (3.3-5.1)
[2025-04-19 07:19] LABS: CORTISOL AM 18.40 ug/dL (6.02-18.40)
[2025-04-19] MEDS: Heparin Injection (Vial) 5,000 UNIT/ML VIAL 5000 UNIT SC ×2 (08:09→21:46)
[2025-04-19] MEDS: Lactobacillis Acidophilus 1 CAP PO (08:10)
[2025-04-19] MEDS: buPROPion (XL) 150 MG TABLET.XL PO (08:11)
--- NOTE | 2025-04-19 11:37 | PN.HOSP_ITS ---
Reason for Visit
--- NOTE | 2025-04-19 11:37 | PCM.PN.HOSP ---
Reason for Visit Chief Complaint: Worsening hyponatremia and falls Objective Data Objective Data Vital Signs: Vital Signs Temp Pulse Resp BP Pulse Ox O2 Del Method O2 Flow Rate 98.1 F 68 17 107/67 94 Nasal Cannula 2 04/19/25 08:00 04/19/25 08:00 04/19/25 08:00 04/19/25 08:00 04/19/25 08:00 04/19/25 09:27 04/19/25 09:27 Oxygen Flow Rate (L/min) 2 Oxygen Delivery Method Nasal Cannula Weight: 234 lb 5.622 oz Body Mass Index (BMI) 36.7 Intake & Output: Intake and Output for Last 24 Hours 04/17/25 04/18/25 04/19/25 23:59 23:59 23:59 Intake Total 1200 / 1200 Output Total 0 / 0 Balance 1200 / 1200 Lab / Micro Data 04/19/25 15:05 04/19/25 06:33 Labs: Laboratory Results - last 24 hr 04/18/25 14:05: WBC 10.0, RBC 4.49, Hgb 13.1, Hct 40.0, MCV 89.1, MCH 29.2, MCHC 32.8, RDW Std Deviation 45.1 H, RDW Coeff of Terry 13.9, Plt Count 160, MPV 11.7, Immature Gran % (Auto) 0.600, Neut % (Auto) 77.8 H, Lymph % (Auto) 10.9 L, [place] % (Auto) 8.9, Eos % (Auto) 1.6, Baso % (Auto) 0.2, Absolute Neuts (auto) 7.8 H, Absolute Lymphs (auto) 1.09, Nucleated RBC % 0, Sodium 121 L, Potassium 5.4 H, Chloride 73 L*, Carbon Dioxide 42.5 H, Anion Gap 6, BUN 53 H, Creatinine 1.30 H, Estim Creat Clear Calc 46.24 L, Est GFR (MDRD) Non-Af 43 L, BUN/Creatinine Ratio 40.9 H, Glucose 102 H, Calcium 9.7, Total Bilirubin 0.41, AST 50 H, ALT 32, Alkaline Phosphatase 123 H, Total Protein 6.6, Albumin 3.7, Globulin 3.0, Albumin/Globulin Ratio 1.2 04/18/25 19:42: Serum Osmolality 310 H 04/19/25 03:55: POC Glucose 108 H 04/19/25 06:33: WBC 7.7, RBC 4.11 L, Hgb 12.1, Hct 36.7 L, MCV 89.3, MCH 29.4, MCHC 33.0, RDW Std Deviation 47.1 H, RDW Coeff of Terry 14.3, Plt Count 129 L, MPV 10.6, Sodium 123 L, Potassium 4.4, Chloride 78 L, Carbon Dioxide 40.9 H, Anion Gap 4 L, BUN 41 H, Creatinine 1.33 H, Estim Creat Clear Calc 45.15 L, Est GFR (MDRD) Non-Af 41 L, BUN/Creatinine Ratio 30.5 H, Glucose 105 H, Calcium 9.4, Triglycerides 125, Cholesterol 206 H, LDL Cholesterol, Calc 113, VLDL Cholesterol 25, HDL Cholesterol 71, Cholesterol/HDL Ratio 2.89, Cortisol AM Sample 18.40 Physical Exam Narrative Seen and examined Patient feeling dizzy a currently patient is hypotensive with blood pressure systolic 80s a nd states vertigo. She is feeling weak. She was on diuretic for 2 weeks. Admitted with fall and hyponatremia. Around noon time she has hypotension, 80/62, 77/55 and patient was given 2 L IV bolus and then his BP was 71/42 thereafter 1 L Ringer lactate bolus was ordered and patient transferred to ICU for further care. She has chronic history of fall since she was a kid as she had polio Physical exam General: Alert, Oriented x3, Cooperative HEENT: Atraumatic, PERRLA, EOMI, Normocephalic. Oral: No Gingival or Mucosal Lesions/ Ulcerations Neck: Supple, No JVD, Negative Carotid Bruits Chest wall/Lungs: Air entry diminished in bilateral lung bases. No crepitation/rhonchi Cardiovascular: Hypotension, low volume heart sounds no M/G/R Abdomen: Bowel Sounds Present, Soft, Non Tender, Non-Distended : No dysuria. No renal angle tenderness. No suprapubic tenderness. Extremities: No edema, Capillary Refill Less than 3 Seconds Skin: Bruise on the right knee Musculoskeletal: Weakness of lower extremities. No Tenderness to Palpation of Joints or Extremities Neurological: Cranial nerves II-XII grossly intact, DTR 2+/4. No acute focal neurological deficit. Psych/Mental Status: Flat affect Assessment & Plan Assessment/Plan (1) Hyponatremia: PLAN: Plan Patient is a 75-year-old female who presented to [facility] ED on 04/18/2025 with worsening hyponatremia and weakness with falls at home. 1. Hyponatremia probably due to diuretic which she had for 2 weeks: ? Admit under inpatient status to PCU. Nephrology consulted. Baseline sodium around 140; remained around 140 during recent complicated hospitalization from 03/18-03/26. Dropped significantly to sodium 128 on 04/09. Was instructed to discontinue home Lasix on 04/09 but continued until 04/15. Repeat sodium 125 on 04/16 and has continued to worsen to sodium 121 on 04/18. Severe hyperchloremia with chloride level 71-74 on recent labs. Patient was also on stress dose steroid for 2 days during recent hospitalization. She was recently discharged on 03/24/2025 after management for undifferentiated shock, acute hypoxic and hypercarbic respiratory failure which required ventilator. 04/19: Repeat sodium was 123. Improved 3 mEq. Director Of Operations Home Health is consulted. Calculated serum iron 267. Measured serum iron 310. Osmolar gap 43. Unclear etiology. The usual differential diagnosis of increased osmolar gap are methanol, ketoacidosis, lactic acidosis, ethylene glycol, propylene glycol, isopropanol. Repeat the serum osmolarity and osmolar gap. VBG ordered. 2. ELVIA with mild hyperkalemia, severe non-anion gap metabolic acidosis, severe hypochloremia ? Nephrology consulted as above. Creatinine 1.30, potassium 5.4 on admit. Baseline creatinine around 0.7-0.8. Bicarb 42. Chloride level 71-74 on recent labs as above. Notably creatinine was 1.6-1.9 on recent labs and has improved to 1.30 with discontinuing home Lasix and losartan. Suspect prerenal etiology due to overdiuresis. 04/19: Continue holding Lasix, losartan, indapamide and spironolactone. Severe NAGMA is presumed secondary to chronic respiratory failure as below. 3. 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 Patient with recent complicated hospitalization and required intubation for combined respiratory failure from 03/18-03/20. Was discharged home on 2 L nasal cannula at rest and 3 L with exertion. Has suspected NEEL and recommendation was for outpatient workup for this which has not been completed yet. Stable on 2 L nasal cannula at rest in the ED. Monitor. Continue home albuterol inhaler as needed. 4. Chronic HFpEF, hypertension ? Echo during recent hospitalization on 03/19 showed EF 75%, moderate concentric LV hypertrophy, no other concerning findings. Mildly hypertensive to the 140s systolic in the ED. Holding home Lasix, losartan, indapamide and spironolactone as above. Okay to continue home Coreg. 5. Acute on chronic debility with recent falls ? PT/OT/case management consulted. Patient lives at home alone. She was able to be discharged home with home health care after recent prolonged hospitalization. Has had worsening functional status with small falls over the past week or so per family. Appreciate therapy recommendations. 6. Anxiety, depression, insomnia, restless leg syndrome, neuropathy ? Continue home bupropion, duloxetine, gabapentin, pramipexole, mirtazapine and melatonin. 7. Class II obesity ? BMI 36 on admit. Complicates hospital course and care. DVT prophylaxis: Heparin subcu CODE STATUS: DNR CCA, okay to intubate Total time of the visit including total time spent in counseling or coordination of care, (more than 50% of the total time, spent in obtaining medical information from nurses and other ancillary care providers ,explaining to the patient about labs, imaging, diagnosis and management of active complex medical conditions), management of hypotension, severe hyponatremia, review of labs and imaging is 35 minutes. Charges/Coding Visit Charges Inpatient E&M: 27686 Subs Hosp L3
[2025-04-19] MEDS: 0.9% Normal Saline (1000mL) 1,000 ML 999 ML IV ×2 (12:00→13:25)
[2025-04-19 13:25] LABS: Osmolality, Serum 279 mOsm/KG (280-301)
--- NOTE | 2025-04-19 14:50 | RAD_ITS ---
PROCEDURE: RAD/Chest 1 View (Portable)
[2025-04-19 15:30] LABS: Hematocrit 34.7 % (37-47); Hemoglobin 11.3 g/dL (12.0-15.0); Immature Granulocytes Count 0.070 X10^3/uL (0.0-0.0); Mean Corp Hgb Conc 32.6 g/dL (32-36); Mean Corpuscular Volume 91.1 fL (81-99); Mean Platelet Vol. 10.7 fl (6.2-12.0); NRBC Flagged by Analyzer 0 % (0-5); Platelet Count 121 K/mm3 (150-450); RBC Distribution Width CV 14.5 % (11.6-14.6); RBC Distribution Width SD 48.4 fl (35.1-43.9); Red Blood Count 3.81 M/mm3 (4.2-5.4); White Blood Count 8.2 K/mm3 (4.4-11.0)
[2025-04-19 15:47] LABS: CPK Total, Creatine Kinase 65 U/L (24-195)
--- NOTE | 2025-04-19 15:49 | NURSING ---
patient transferred to [facility] [place] by myself and chargemaster specialist Jodi.
--- NOTE | 2025-04-19 16:33 | PCM.PN.BLA ---
Progress Note attempted to see earlier. was not in room. chart reviewed. normal baseline sodium. hyponatremia, hypochloremia, likely volume depletion.
[2025-04-19 17:32] LABS: FI02 2.0; SITE Not entered; VBG BASE EXCESS 10 mmol/L (-1.0-3.5); VBG PO2 133 mmHg (25-40); VBG SO2 99 % (50-70); VBG TCO2 34 mmol/L (23-33)
[2025-04-19 17:44] LABS: Anion Gap 9 (5-15); BUN 40 mg/dL (4-19); BUN/Creat Ratio 28.8 RATIO (10-20); Calcium,Total 8.8 mg/dL (7.6-11.0); Carbon Dioxide 33.7 mmol/L (21.0-32.0); Chloride 83 mmol/L (98-108); Estimated Creatinine Clearance 43.20 ml/min (50-250); Glucose 128 mg/dL (70-99); Potassium 4.3 mmol/L (3.3-5.1)
--- NOTE | 2025-04-19 17:50 | PCMCONS.TICU ---
HPI Consult Data Date of Consult: 04/19/25 HPI Narrative Reason for Consultation: hypotension HPI Narrative: OSCAR ROMAN, is a 75 F who presents [ with falls, presyncope/ dizziness after having started furosemide 2 weeks ago- of note she was instructed to stop the furosemide and eventually did so 3 days ago but her serum sodium had continued to drop during outpatient monitoring and she was ultimately admitted to the hospital. She reports that during this time she has been exceptionally thirsty but only noted excessive urinating while taking the diuretic. She also states she would take Ensure or something similar as much as possible over past several days- to weeks making clear she didn't just drink water during this period of excessive thirst. She was initially placed on regular hospital room but subsequently transferred to ICU for closer monitoring when he blood pressure dipped low. She received ~ 2000 mL of crystalloid IVF and has not required vasopressors. Currently she states she feels better, denies SOB but her brain still seems foggy. 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 Essential (primary) hypertension Debility Infection and inflammatory reaction due to other internal joint prosthesis, initial encounter Insomnia MRSA (methicillin resistant staph aureus) culture positive Wears glasses Post-menopausal Depression Anxiety Walker as ambulation aid Ambulates with cane Arthritis High cholesterol Back pain Restless legs Former smoker Shortness of breath on exertion History of pain when walking History of edema Hypertension Home Medications ?Medication ?Instructions ?Recorded ?Last Taken ?Type losartan 50 mg tablet 50 mg PO BID BP 09/19/14 09/13/24 History melatonin 5 mg tablet 10 mg PO QHS INSOMNIA 09/19/14 04/17/25 History bupropion HCl 300 mg 24 hr tablet, 150 mg PO DAILY DEPRESSION 06/11/20 04/18/25 History extended release gabapentin 600 mg tablet 600 mg PO QHS SLEEP 06/11/20 04/17/25 History mirtazapine 15 mg tablet 15 mg PO QHS INSOMNIA 06/24/20 04/17/25 History duloxetine 30 mg capsule,delayed 30 mg PO DAILY DEPRESSION 09/11/24 04/18/25 History release (Cymbalta) aspirin 81 mg chewable tablet 81 mg PO BID blood thinner #0 tabs 09/17/24 04/18/25 Rx loperamide 2 mg capsule 2 mg PO Q2H PRN PRN DIARRHEA #0 09/17/24 Unknown Rx caps albuterol sulfate 90 mcg/actuation 2 inh inhalation Q4H PRN shortness 03/18/25 Unknown History aerosol inhaler of breath or wheezing doxycycline hyclate 100 mg capsule 100 mg PO BID abx 03/18/25 04/18/25 History indapamide 2.5 mg tablet 2.5 mg PO DAILY diuretic 03/18/25 Unknown History naproxen sodium 220 mg tablet 440 mg PO DAILY PRN pain 03/18/25 Unknown History potassium citrate 10 mEq (1,080 10 meq PO DAILY 03/18/25 Unknown History mg) tablet,extended release pramipexole 1 mg tablet 1 mg PO QHS restless leg 03/18/25 Unknown History spironolactone 50 mg tablet 50 mg PO DAILY diuretic 03/18/25 04/18/25 History carvedilol 3.125 mg tablet 1.56 mg PO BID bp 04/16/25 04/18/25 History lactobacillus combination no.9 4 4,000 mmu cells PO QDAY GI health 04/16/25 Unknown History billion cell capsule (Adult 50 Plus Probiotic) ondansetron HCl 4 mg tablet 4 mg PO Q8 PRN nausea and vomiting 04/16/25 Unknown History pramipexole 0.5 mg tablet 0.5 mg PO DINNER RLS 04/16/25 Unknown History Allergy/AdvReac Type Severity Reaction Status Date / Time Penicillins Allergy Anaphylaxis Verified 04/18/25 13:45 Family History Mother Heart disease Diabetes Brother Heart disease Diabetes Brother Heart disease pacemaker Sister Atrial fibrillation Surgical History History of reverse total replacement of right shoulder joint History of surgery Hx of colonoscopy Hx of right cataract extraction Hx of left cataract extraction History of partial colectomy Hx of appendectomy Hx of total hip arthroplasty Hx of total shoulder replacement Hx of lumbar discectomy Hx of total shoulder replacement Hx of total hip arthroplasty Social History household members: none Smoking Status: Former smoker how long ago did patient quit smokin years ago alcohol intake: never substance use type: does not use caffeine: No ROS Constitutional Constitutional: Reports systems reviewed and no addt'l complaints, except as documented Eyes Eyes: Reports systems reviewed and no addt'l complaints, except as documented ENT HEENT: Reports systems reviewed and no addt'l complaints, except as documented Cardiovascular Cardiovascular: Reports systems reviewed and no addt'l complaints, except as documented and as per HPI Respiratory/Chest Respiratory/Chest: Reports systems reviewed and no addt'l complaints, except as documented and as per HPI Objective Data Objective Data Vital Signs: Vital Signs Last response Temperature 36.3 C L 04/19/25 15:30 Temperature Source Temporal 04/19/25 15:30 Pulse Rate 89 04/19/25 17:30 Pulse Strength Weak (1+) 04/19/25 09:27 Respiratory Rate 18 04/19/25 17:30 Respiratory Effort Normal, Non-Labored 04/19/25 16:25 Respiratory Depth Normal 04/19/25 16:25 Respiratory Pattern Normal 04/19/25 16:25 Blood Pressure 100/56 L 04/19/25 17:30 Blood Pressure Mean 70 04/19/25 17:30 Blood Pressure Source Monitor 04/19/25 17:30 Blood Pressure Position Semi-Fowlers 04/19/25 17:30 Blood Pressure Location Right Arm 04/19/25 17:30 Pulse Ox 93 04/19/25 17:30 Oxygen Delivery Method Nasal Cannula 04/19/25 17:30 Oxygen Flow Rate (L/min) 2 04/19/25 17:30 I&O: I&O Last 24 Hours 04/18/25 04/19/25 04/19/25 23:59 11:59 23:59 Intake Total 1200 / 3300 2100 / 3300 Output Total 0 20 20 / 20 Balance 1200 / 3280 2080 / 3280 I&O: Total Stay 04/18/25 13:41 thru 04/19/25 14:40 Intake Total 3300 Output Total 20 Balance 3280 Current Meds Ordered / Administered: Current meds ordered / Administered Generic Name Dose Route Start Last Admin Trade Name Freq PRN Reason Stop Dose Admin Acetaminophen 650 mg 04/18/25 19:57 Acetaminophen 325 Mg Tablet PO Q6H PRN PRN Pain 1-10 Or Fever>100.7 Albuterol Sulfate 2.5 mg 04/18/25 20:10 Albuterol 2.5 Mg/3 Ml Vial.Neb. INHALATION Q4H PRN shortness of breath or wheezing Aspirin 81 mg 04/18/25 22:00 04/19/25 08:10 Aspirin 81 Mg Tab.Chew PO 81 mg BID KACEY Administration Bupropion HCl 150 mg 04/19/25 10:00 04/19/25 08:11 Bupropion (Xl) 150 Mg Tablet.Xl PO 150 mg DAILY KACEY Administration Carvedilol 3.125 mg 04/18/25 22:00 04/19/25 08:10 Carvedilol 3.125 Mg Tablet PO 3.125 mg BID KACEY Administration Duloxetine HCl 30 mg 04/19/25 10:00 04/19/25 08:10 Duloxetine Hcl 30 Mg Capsule PO 30 mg DAILY KACEY Administration Gabapentin 600 mg 04/18/25 22:00 04/18/25 21:10 Gabapentin 600 Mg Tablet PO 600 mg QHS KACEY Administration Heparin Sodium (Porcine) 5,000 unit 04/18/25 22:00 04/19/25 08:09 Heparin Injection (Vial) 5,000 Unit/Ml Vial SC 5,000 unit Q12 KACEY Administration Sodium Chloride 250 mls @ 15 mls/hr 04/19/25 02:16 IV .[id number] PRN Saline Flush Sodium Chloride 250 mls @ 15 mls/hr 04/19/25 02:16 IV .[id number] PRN Additional IVPB Infusion Melatonin 10 mg 04/18/25 22:00 04/18/25 21:14 Melatonin 10 Mg Tablet PO 10 mg QHS KACEY Administration Mirtazapine 15 mg 04/18/25 22:00 04/18/25 21:15 Mirtazapine 15 Mg Tablet PO 15 mg QHS KACEY Administration Ondansetron HCl 4 mg 04/18/25 19:57 Ondansetron 4 Mg/2 Ml Vial IV Q8H PRN PRN NAUSEA/VOMITING Pramipexole Dihydrochloride 0.5 mg 04/18/25 19:57 04/19/25 16:34 Pramipexole Di-Hcl 0.5 Mg Tablet PO 0.5 mg DINNER KACEY Administration Senna/Docusate Sodium 2 tablet 04/19/25 22:00 Senna/Docusate Sodium 1 Tablet PO BID KACEY Sodium Chloride 10 - 40 ml 04/19/25 02:16 0.9% Saline Lock 10 Ml Syringe IV UD PRN SALINE FLUSH Physical Exam Const alert and oriented x3 General Appearance: cooperative Orientation / Consciousness: awake, oriented to person, oriented to place and oriented to time Exam Limitations: no limitations HEENT normocephalic Eyes PERRL and EOMs intact bilaterally Neck no JVD Lab / Micro Data Attestation: I reviewed the patient's lab results. 04/19/25 15:05 04/19/25 17:20 Labs: Laboratory Results - last 24 hr 04/18/25 19:42: Serum Osmolality 310 H 04/19/25 03:55: POC Glucose 108 H 04/19/25 06:33: WBC 7.7, RBC 4.11 L, Hgb 12.1, Hct 36.7 L, MCV 89.3, MCH 29.4, MCHC 33.0, RDW Std Deviation 47.1 H, RDW Coeff of Terry 14.3, Plt Count 129 L, MPV 10.6, Sodium 123 L, Potassium 4.4, Chloride 78 L, Carbon Dioxide 40.9 H, Anion Gap 4 L, BUN 41 H, Creatinine 1.33 H, Estim Creat Clear Calc 45.15 L, Est GFR (MDRD) Non-Af 41 L, BUN/Creatinine Ratio 30.5 H, Glucose 105 H, Calcium 9.4, Triglycerides 125, Cholesterol 206 H, LDL Cholesterol, Calc 113, VLDL Cholesterol 25, HDL Cholesterol 71, Cholesterol/HDL Ratio 2.89, Cortisol AM Sample 18.40 04/19/25 12:44: Serum Osmolality 279 L 04/19/25 15:05: WBC 8.2, RBC 3.81 L, Hgb 11.3 L, Hct 34.7 L, MCV 91.1, MCH 29.7, MCHC 32.6, RDW Std Deviation 48.4 H, RDW Coeff of Terry 14.5, Plt Count 121 L, MPV 10.7, Immature Gran % (Auto) 0.900, Neut % (Auto) 72.5 H, Lymph % (Auto) 15.6 L, [place] % (Auto) 7.9, Eos % (Auto) 2.7, Baso % (Auto) 0.4, Absolute Neuts (auto) 6.0, Absolute Lymphs (auto) 1.28, Nucleated RBC % 0, Lactic Acid 1.3, Total Creatine Kinase 65 04/19/25 17:20: Sodium 125 L, Potassium 4.3, Chloride 83 L, Carbon Dioxide 33.7 H, Anion Gap 9, BUN 40 H, Creatinine 1.39 H, Estim Creat Clear Calc 43.20 L, Est GFR (MDRD) Non-Af 39 L, BUN/Creatinine Ratio 28.8 H, Glucose 128 H, Calcium 8.8 Micro: Microbiology 04/19/25 16:10 Mucosa - Nose SARS-CoV-2, Influenza & RSV (PCR) - Final ABG Data ABG results: ABG 04/19/25 17:28 Specimen Type MARICRUZ Sample Site Not entered O2 % 2.0 VBG pH 7.48 H VBG pO2 133 H VBG HCO3 33 H VBG Total CO2 34 H VBG O2 Sat (Calc) 99 H VBG Base Excess 10 H POC Mix VBG pCO2 Pt Tmp 44.6 O2 Delivery Device Cannula Imaging Radiology Impression Chest X-Ray 04/19/25 14:50 IMPRESSION: Mild pulmonary vascular congestion and question interstitial edema. No focal consolidation. Mild cardiomegaly. Reading Location: [facility] Assessment and Plan . Assessment and plan: Assessment/ Plan: 1. hypotension, almost surely volume related due to fluid shifts, resolving quickly with IVF administration - no suggestion of sepsis or other condition warranting more aggressive management at present 2. hyponatremia, probably hypovolemic Suggest: 1. continued ICU monitoring overnight is reasonable 2. sodium management as currently planned by hospitlaist team- Nephrology input awaited 3. standard ICU prophylaxis is appropriate Critical Care Time: 60 minutes The entirety of this encounter was done via Telemedicine
[2025-04-19] MEDS: MELATONIN 10 MG TABLET PO (21:46)
[2025-04-19] MEDS: Senna/Docusate Sodium 1 Tablet 2 TABLET PO (21:53)
[2025-04-20] VITALS (19 sets, daily range): BP systolic 90–137; BP diastolic 57–91; PULSE 67–93; RESP 14–24; TEMP 36.3–36.6; O2SAT 92–100; BMI 37.6
[2025-04-20] MEDS: 0.9% Saline Lock 10 ML Syringe IV (04:50)
[2025-04-20 05:07] LABS: Hematocrit 34.4 % (37-47); Hemoglobin 11.1 g/dL (12.0-15.0); Immature Granulocytes Count 0.070 X10^3/uL (0.0-0.0); Mean Corp Hgb Conc 32.3 g/dL (32-36); Mean Corpuscular Volume 90.3 fL (81-99); Mean Platelet Vol. 10.5 fl (6.2-12.0); NRBC Flagged by Analyzer 0 % (0-5); Platelet Count 115 K/mm3 (150-450); RBC Distribution Width CV 14.5 % (11.6-14.6); RBC Distribution Width SD 47.6 fl (35.1-43.9); Red Blood Count 3.81 M/mm3 (4.2-5.4); White Blood Count 7.5 K/mm3 (4.4-11.0)
[2025-04-20 05:21] LABS: Anion Gap 5 (5-15); BUN 39 mg/dL (4-19); BUN/Creat Ratio 29.4 RATIO (10-20); Calcium,Total 9.0 mg/dL (7.6-11.0); Carbon Dioxide 36.7 mmol/L (21.0-32.0); Chloride 83 mmol/L (98-108); Estimated Creatinine Clearance 46.46 ml/min (50-250); Glucose 113 mg/dL (70-99); Potassium 4.0 mmol/L (3.3-5.1)
--- NOTE | 2025-04-20 07:26 | PN.HOSP_ITS ---
Reason for Visit
--- NOTE | 2025-04-20 07:26 | PCM.PN.HOSP ---
Reason for Visit Chief Complaint: Worsening hyponatremia and falls Objective Data Objective Data Vital Signs: Vital Signs Temp Pulse Resp BP Pulse Ox O2 Del Method O2 Flow Rate 97.9 F 67 23 H 97/63 97 Nasal Cannula 1 04/20/25 04:00 04/20/25 07:00 04/20/25 07:00 04/20/25 07:00 04/20/25 07:03 04/20/25 07:03 04/20/25 07:03 Oxygen Flow Rate (L/min) 1 Oxygen Delivery Method Nasal Cannula Weight: 240 lb 4.862 oz Body Mass Index (BMI) 37.6 Intake & Output: Intake and Output for Last 24 Hours 04/18/25 04/19/25 04/20/25 23:59 23:59 23:59 Intake Total 3300 / 3300 60 / 60 Output Total Balance 3280 / 3280 60 / 60 Lab / Micro Data 04/20/25 04:45 04/20/25 04:45 Labs: Laboratory Results - last 24 hr 04/19/25 12:44: Serum Osmolality 279 L 04/19/25 15:05: WBC 8.2, RBC 3.81 L, Hgb 11.3 L, Hct 34.7 L, MCV 91.1, MCH 29.7, MCHC 32.6, RDW Std Deviation 48.4 H, RDW Coeff of Terry 14.5, Plt Count 121 L, MPV 10.7, Immature Gran % (Auto) 0.900, Neut % (Auto) 72.5 H, Lymph % (Auto) 15.6 L, [place] % (Auto) 7.9, Eos % (Auto) 2.7, Baso % (Auto) 0.4, Absolute Neuts (auto) 6.0, Absolute Lymphs (auto) 1.28, Nucleated RBC % 0, Lactic Acid 1.3, Total Creatine Kinase 65 04/19/25 17:20: Sodium 125 L, Potassium 4.3, Chloride 83 L, Carbon Dioxide 33.7 H, Anion Gap 9, BUN 40 H, Creatinine 1.39 H, Estim Creat Clear Calc 43.20 L, Est GFR (MDRD) Non-Af 39 L, BUN/Creatinine Ratio 28.8 H, Glucose 128 H, Calcium 8.8 04/20/25 04:45: WBC 7.5, RBC 3.81 L, Hgb 11.1 L, Hct 34.4 L, MCV 90.3, MCH 29.1, MCHC 32.3, RDW Std Deviation 47.6 H, RDW Coeff of Terry 14.5, Plt Count 115 L, MPV 10.5, Immature Gran % (Auto) 0.900, Neut % (Auto) 73.3 H, Lymph % (Auto) 14.8 L, [place] % (Auto) 7.7, Eos % (Auto) 2.9, Baso % (Auto) 0.4, Absolute Neuts (auto) 5.5, Absolute Lymphs (auto) 1.11, Nucleated RBC % 0, Sodium 125 L, Potassium 4.0, Chloride 83 L, Carbon Dioxide 36.7 H, Anion Gap 5, BUN 39 H, Creatinine 1.31 H, Estim Creat Clear Calc 46.46 L, Est GFR (MDRD) Non-Af 42 L, BUN/Creatinine Ratio 29.4 H, Glucose 113 H, Calcium 9.0 Micro: Microbiology 04/19/25 16:10 Nasal Secretion MRSA (PCR) - Final 04/19/25 16:10 Mucosa - Nose SARS-CoV-2, Influenza & RSV (PCR) - Final ABG Data ABG results: ABG 04/19/25 17:28 Specimen Type MARICRUZ Sample Site Not entered O2 % 2.0 VBG pH 7.48 H VBG pO2 133 H VBG HCO3 33 H VBG Total CO2 34 H VBG O2 Sat (Calc) 99 H VBG Base Excess 10 H POC Mix VBG pCO2 Pt Tmp 44.6 O2 Delivery Device Cannula Radiography Diagnostic Testing: Radiology Impression Chest X-Ray 04/19/25 14:50 IMPRESSION: Mild pulmonary vascular congestion and question interstitial edema. No focal consolidation. Mild cardiomegaly. Reading Location: [facility] Physical Exam Narrative Seen and examined Patient feeling mildly confused last night. Was dizzy but feeling much better. Eating her breakfast. Denies chest pain or shortness of breath. Blood pressure is improved, systolic in 100s. Remembers month ER day. She has chronic history of fall since she was a kid as she had polio Physical exam General: Awake, intermittent confusion. Oriented x3, Cooperative HEENT: Atraumatic, PERRLA, EOMI, Normocephalic. Oral: No Gingival or Mucosal Lesions/ Ulcerations Neck: Supple, No JVD, Negative Carotid Bruits Chest wall/Lungs: Air entry diminished in bilateral lung bases. Mild occasional crepitation in left lung base Cardiovascular: Low BP. No M/G/R Abdomen: Bowel Sounds Present, Soft, Non Tender, Non-Distended : No dysuria. No renal angle tenderness. No suprapubic tenderness. Extremities: No edema, Capillary Refill Less than 3 Seconds Skin: Bruise on the right knee Musculoskeletal: Weakness of lower extremities, 4+/5 at knees and hip joints. No Tenderness to Palpation of Joints or Extremities Neurological: Cranial nerves II-XII grossly intact, DTR 2+/4. No acute focal neurological deficit. Psych/Mental Status: Flat affect Assessment & Plan Assessment/Plan (1) Hyponatremia: PLAN: Plan Patient is a 75-year-old female who presented to [facility] ED on 04/18/2025 with worsening hyponatremia and weakness with falls at home. 1. Hyponatremia probably due to diuretic which she had for 2 weeks: ? Admit under inpatient status to PCU. Nephrology consulted. Baseline sodium around 140; remained around 140 during recent complicated hospitalization from 03/18-03/26. Dropped significantly to sodium 128 on 04/09. Was instructed to discontinue home Lasix on 04/09 but continued until 04/15. Repeat sodium 125 on 04/16 and has continued to worsen to sodium 121 on 04/18. Severe hyperchloremia with chloride level 71-74 on recent labs. Patient was also on stress dose steroid for 2 days during recent hospitalization. She was recently discharged on 03/24/2025 after management for undifferentiated shock, acute hypoxic and hypercarbic respiratory failure which required ventilator. 04/19: Repeat sodium was 123. Improved 3 mEq. Residential [employer] is consulted. Calculated serum iron 267. Measured serum iron 310. Osmolar gap 43. Unclear etiology. The usual differential diagnosis of increased osmolar gap are methanol, ketoacidosis, lactic acidosis, ethylene glycol, propylene glycol, isopropanol. Repeat the serum osmolarity and osmolar gap. VBG ordered. 04/20: VBG 7.48/mixed pCO2 44, PaO2 133/bicarb 33/34. Bicarb and BMP was also 33.7. Anion gap 9. Sodium is still low 125 x 2. CPK 25. Lactic acid 1.3. Serum osmolality 279 which seems more appropriate than earlier reported 310. Calculated on repeat BMP 04/19 271, osmolar gap 8.0 which is in normal range.UA negative, hCG 1.015, protein 30. Residential Finish Carpenter on board 2. ELVIA with mild hyperkalemia, severe non-anion gap metabolic acidosis, severe hypochloremia ? Nephrology consulted as above. Creatinine 1.30, potassium 5.4 on admit. Baseline creatinine around 0.7-0.8. Bicarb 42. Chloride level 71-74 on recent labs as above. Notably creatinine was 1.6-1.9 on recent labs and has improved to 1.30 with discontinuing home Lasix and losartan. Suspect prerenal etiology due to overdiuresis. 04/19: Continue holding Lasix, losartan, indapamide and spironolactone. Severe NAGMA is presumed secondary to chronic respiratory failure as below. 04/20: Creatinine 1.31. BUN 39, BUN/creatinine ratio 29.4 still high 3. 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 Patient with recent complicated hospitalization and required intubation for combined respiratory failure from 03/18-03/20. Was discharged home on 2 L nasal cannula at rest and 3 L with exertion. Has suspected NEEL and recommendation was for outpatient workup for this which has not been completed yet. Stable on 2 L nasal cannula at rest in the ED. Monitor. Continue home albuterol inhaler as needed. 04/20: Rib chest x-ray reviewed shows mild pulmonary vascular congestion and bibasilar atelectasis but no obvious shortness of breath. Continue incentive spirometry and PEP for 1 week 4. Chronic HFpEF, hypertension ? Echo during recent hospitalization on 03/19 showed EF 75%, moderate concentric LV hypertrophy, no other concerning findings. Mildly hypertensive to the 140s systolic in the ED. Holding home Lasix, losartan, indapamide and spironolactone as above. Okay to continue home Coreg. 5. Acute on chronic debility with recent falls ? PT/OT/case management consulted. Patient lives at home alone. She was able to be discharged home with home health care after recent prolonged hospitalization. Has had worsening functional status with small falls over the past week or so per family. Appreciate therapy recommendations. 6. Anxiety, depression, insomnia, restless leg syndrome, neuropathy ? Continue home bupropion, duloxetine, gabapentin, pramipexole, mirtazapine and melatonin. 7. Class II obesity ? BMI 36 on admit. Complicates hospital course and care. DVT prophylaxis: Heparin subcu CODE STATUS: DNR CCA, okay to intubate Total time of the visit including total time spent in counseling or coordination of care, (more than 50% of the total time, spent in obtaining medical information from nurses and other ancillary care providers ,explaining to the patient about labs, imaging, diagnosis and management of active complex medical conditions), management of hypotension, severe hyponatremia, review of labs and imaging is 35 minutes. Charges/Coding Visit Charges Inpatient E&M: 86950 Subs Hosp L3
[2025-04-20] MEDS: Lactobacillis Acidophilus 1 CAP PO (08:20)
[2025-04-20] MEDS: buPROPion (XL) 150 MG TABLET.XL PO (08:21)
[2025-04-20] MEDS: Heparin Injection (Vial) 5,000 UNIT/ML VIAL 5000 UNIT SC ×2 (08:21→21:29)
[2025-04-20 10:03] LABS: Color, Urine Yellow (Yellow); Glucose, Dipstick 250 mg/dl (Normal); Ketone-Dipstick Negative (Negative); Leukocyte Esterase-Dipstick Negative /ul (Negative); Mucous, Urine 0 SEEN /hpf (<or=2+); Nitrite-Dipstick Negative (Negative); Occult Blood-Urine Negative /ul (Negative); Protein-Dipstick 30 mg/dl (Negative); Red Blood Cells-Urine 0 SEEN /hpf (0-5); Specific Gravity, Urine 1.010 (1.002-1.030); Urine Bilirubin Dipstick Negative (Negative)
[2025-04-20 10:09] LABS: Squamous Epithelial Cells - UA 0-5 SEEN /hpf (5-10); Transitional Epithelial - Ur 0-5 SEEN /hpf (0-5)
[2025-04-20 10:20] LABS: Barbiturate Urine NEGATIVE (< 200 ng/mL); Benzodiazepine Urine NEGATIVE (< 200 ng/mL); PCP Urine NEGATIVE (< 25 ng/mL); THC Urine NEGATIVE (< 50 ng/mL)
[2025-04-20 10:33] LABS: Osmolality, Urine 263 mOsm/KG
--- NOTE | 2025-04-20 14:28 | PCM.PN.TICU ---
Objective Data Objective Data Vital Signs: Vital Signs Last response Temperature 36.6 C 04/20/25 11:30 Temperature Source Temporal 04/20/25 11:30 Pulse Rate 80 04/20/25 11:30 Pulse Strength Weak (1+) 04/20/25 10:00 Respiratory Rate 20 H 04/20/25 11:30 Respiratory Effort Normal, Non-Labored 04/19/25 22:00 Respiratory Depth Normal 04/19/25 22:00 Respiratory Pattern Normal 04/19/25 22:00 Blood Pressure 113/74 04/20/25 11:30 Blood Pressure Mean 87 04/20/25 11:30 Blood Pressure Source Monitor 04/20/25 11:30 Blood Pressure Position Sitting 04/20/25 11:30 Blood Pressure Location Left Arm 04/20/25 11:30 Pulse Ox 100 04/20/25 11:30 Oxygen Delivery Method Nasal Cannula 04/20/25 13:35 Oxygen Flow Rate (L/min) 2 04/20/25 13:35 I&O: I&O Last 24 Hours 04/19/25 04/20/25 04/20/25 23:59 11:59 23:59 Intake Total 2100 / 3300 60 / 300 240 / 300 Output Total 20 / 20 Balance 2080 / 3280 60 / 300 240 / 300 I&O: Total Stay 04/18/25 13:41 thru 04/20/25 12:00 Intake Total 3600 Output Total 20 Balance 3580 Current Meds Ordered / Administered: Current meds ordered / Administered Generic Name Dose Route Start Last Admin Trade Name Freq PRN Reason Stop Dose Admin Acetaminophen 650 mg 04/18/25 19:57 Acetaminophen 325 Mg Tablet PO Q6H PRN PRN Pain 1-10 Or Fever>100.7 Albuterol Sulfate 2.5 mg 04/18/25 20:10 Albuterol 2.5 Mg/3 Ml Vial.Neb. INHALATION Q4H PRN shortness of breath or wheezing Aspirin 81 mg 04/18/25 22:00 04/20/25 08:20 Aspirin 81 Mg Tab.Chew PO 81 mg BID KACEY Administration Bupropion HCl 150 mg 04/19/25 10:00 04/20/25 08:21 Bupropion (Xl) 150 Mg Tablet.Xl PO 150 mg DAILY KACEY Administration Carvedilol 3.125 mg 04/18/25 22:00 04/20/25 08:20 Carvedilol 3.125 Mg Tablet PO 3.125 mg BID KACEY Administration Duloxetine HCl 30 mg 04/19/25 10:00 04/20/25 08:21 Duloxetine Hcl 30 Mg Capsule PO 30 mg DAILY KACEY Administration Gabapentin 600 mg 04/18/25 22:00 04/19/25 21:53 Gabapentin 600 Mg Tablet PO 600 mg QHS KACEY Administration Heparin Sodium (Porcine) 5,000 unit 04/18/25 22:00 04/20/25 08:21 Heparin Injection (Vial) 5,000 Unit/Ml Vial SC 5,000 unit Q12 KACEY Administration Sodium Chloride 250 mls @ 15 mls/hr 04/19/25 02:16 IV .[id number] PRN Saline Flush Sodium Chloride 250 mls @ 15 mls/hr 04/19/25 02:16 IV .[id number] PRN Additional IVPB Infusion Melatonin 10 mg 04/18/25 22:00 04/19/25 21:46 Melatonin 10 Mg Tablet PO 10 mg QHS KACEY Administration Midodrine 10 mg 04/20/25 09:00 04/20/25 11:47 Midodrine Hcl 5 Mg Tablet PO Not Given TIDCM KACEY Mirtazapine 15 mg 04/18/25 22:00 04/19/25 21:47 Mirtazapine 15 Mg Tablet PO 15 mg QHS KACEY Administration Ondansetron HCl 4 mg 04/18/25 19:57 Ondansetron 4 Mg/2 Ml Vial IV Q8H PRN PRN NAUSEA/VOMITING Pramipexole Dihydrochloride 0.5 mg 04/18/25 19:57 04/19/25 16:34 Pramipexole Di-Hcl 0.5 Mg Tablet PO 0.5 mg DINNER KACEY Administration Senna/Docusate Sodium 2 tablet 04/19/25 22:00 04/20/25 08:18 Senna/Docusate Sodium 1 Tablet PO Not Given BID KACEY Sodium Chloride 10 - 40 ml 04/19/25 02:16 04/20/25 04:50 0.9% Saline Lock 10 Ml Syringe IV 40 ml UD PRN Administration SALINE FLUSH Sodium Chloride 10 - 40 ml 04/19/25 21:06 0.9% Saline Lock 10 Ml Syringe IV UD PRN SALINE FLUSH Lab / Micro Data Attestation: I reviewed the patient's lab results. 04/20/25 04:45 04/20/25 04:45 Labs: Laboratory Results - last 24 hr 04/19/25 15:05: WBC 8.2, RBC 3.81 L, Hgb 11.3 L, Hct 34.7 L, MCV 91.1, MCH 29.7, MCHC 32.6, RDW Std Deviation 48.4 H, RDW Coeff of Terry 14.5, Plt Count 121 L, MPV 10.7, Immature Gran % (Auto) 0.900, Neut % (Auto) 72.5 H, Lymph % (Auto) 15.6 L, [place] % (Auto) 7.9, Eos % (Auto) 2.7, Baso % (Auto) 0.4, Absolute Neuts (auto) 6.0, Absolute Lymphs (auto) 1.28, Nucleated RBC % 0, Lactic Acid 1.3, Total Creatine Kinase 65 04/19/25 17:20: Sodium 125 L, Potassium 4.3, Chloride 83 L, Carbon Dioxide 33.7 H, Anion Gap 9, BUN 40 H, Creatinine 1.39 H, Estim Creat Clear Calc 43.20 L, Est GFR (MDRD) Non-Af 39 L, BUN/Creatinine Ratio 28.8 H, Glucose 128 H, Calcium 8.8 04/20/25 04:45: WBC 7.5, RBC 3.81 L, Hgb 11.1 L, Hct 34.4 L, MCV 90.3, MCH 29.1, MCHC 32.3, RDW Std Deviation 47.6 H, RDW Coeff of Terry 14.5, Plt Count 115 L, MPV 10.5, Immature Gran % (Auto) 0.900, Neut % (Auto) 73.3 H, Lymph % (Auto) 14.8 L, [place] % (Auto) 7.7, Eos % (Auto) 2.9, Baso % (Auto) 0.4, Absolute Neuts (auto) 5.5, Absolute Lymphs (auto) 1.11, Nucleated RBC % 0, Sodium 125 L, Potassium 4.0, Chloride 83 L, Carbon Dioxide 36.7 H, Anion Gap 5, BUN 39 H, Creatinine 1.31 H, Estim Creat Clear Calc 46.46 L, Est GFR (MDRD) Non-Af 42 L, BUN/Creatinine Ratio 29.4 H, Glucose 113 H, Calcium 9.0 04/20/25 09:35: Urine Color Yellow, Urine Clarity Sl. Cloudy, Urine pH 6.0, Ur Specific [place] 1.010, Urine Protein 30 H, Urine Glucose (UA) 250 H, Urine Ketones Negative, Urine Occult Blood Negative, Urine Nitrite Negative, Urine Bilirubin Negative, Urine Urobilinogen Normal, Ur Leukocyte Esterase Negative, Urine RBC 0 SEEN, Urine WBC 0 SEEN, Ur Squamous Epith Cells 0-5 SEEN, Ur Transition Epith Cell 0-5 SEEN, Urine Bacteria 0 SEEN, Urine Mucus 0 SEEN, Urine Osmolality 263 04/20/25 09:35: Urine Osmolality Cancelled, Ur Random Sodium 34, Urine Opiates Screen NEGATIVE, U Buprenorphine Qual NEGATIVE, Ur Oxycodone Screen NEGATIVE, Urine Methadone Screen NEGATIVE, Urine Fentanyl Screen NEGATIVE, Ur Barbiturates Screen NEGATIVE, Ur Phencyclidine Scrn NEGATIVE, Ur Amphetamines Screen NEGATIVE, U Benzodiazepines Scrn NEGATIVE, Urine Cocaine Screen NEGATIVE, U Cannabinoids Screen NEGATIVE Micro: Microbiology 04/20/25 09:35 Urine, Clean Catch Legionella Antigen - Final 04/20/25 09:35 Urine, Clean Catch Streptococcus pneumoniae Antigen (M - Final 04/19/25 16:10 Nasal Secretion MRSA (PCR) - Final 04/19/25 16:10 Mucosa - Nose SARS-CoV-2, Influenza & RSV (PCR) - Final ABG Data ABG results: ABG 04/19/25 17:28 Specimen Type MARICRUZ Sample Site Not entered O2 % 2.0 VBG pH 7.48 H VBG pO2 133 H VBG HCO3 33 H VBG Total CO2 34 H VBG O2 Sat (Calc) 99 H VBG Base Excess 10 H POC Mix VBG pCO2 Pt Tmp 44.6 O2 Delivery Device Cannula Imaging Radiology Impression Chest X-Ray 04/19/25 14:50 IMPRESSION: Mild pulmonary vascular congestion and question interstitial edema. No focal consolidation. Mild cardiomegaly. Reading Location: [id number] Assessment and Plan . Assessment and plan: 1. hypotension, almost surely volume related due to fluid shifts, resolving quickly with IVF administration - no suggestion of sepsis or other condition warranting more aggressive management at present - resolved 2. hyponatremia, probably hypovolemic, resolving Will sign off, please call with future questions Critical Care Time: The entirety of this encounter was done via Telemedicine Physical Exam Const alert, oriented x3 and no apparent distress General Appearance: cooperative Subjective Subjective Has done well clinically, hemodynamics are satisfactory and her status downgraded
[2025-04-20] MEDS: MELATONIN 10 MG TABLET PO (21:29)
[2025-04-21] VITALS (8 sets, daily range): BP systolic 104–156; BP diastolic 58–87; PULSE 56–96; RESP 18–22; TEMP 36.1–36.9; O2SAT 95–100; BMI 37.5
[2025-04-21] MEDS: 0.9% Saline Lock 10 ML Syringe IV (04:04)
[2025-04-21 04:12] LABS: Hematocrit 35.2 % (37-47); Hemoglobin 11.5 g/dL (12.0-15.0); Immature Granulocytes Count 0.080 X10^3/uL (0.0-0.0); Mean Corp Hgb Conc 32.7 g/dL (32-36); Mean Corpuscular Volume 90.0 fL (81-99); Mean Platelet Vol. 10.7 fl (6.2-12.0); NRBC Flagged by Analyzer 0 % (0-5); Platelet Count 113 K/mm3 (150-450); RBC Distribution Width CV 14.6 % (11.6-14.6); RBC Distribution Width SD 46.6 fl (35.1-43.9); Red Blood Count 3.91 M/mm3 (4.2-5.4); White Blood Count 7.6 K/mm3 (4.4-11.0)
[2025-04-21 04:45] LABS: Anion Gap 5 (5-15); BUN 33 mg/dL (4-19); BUN/Creat Ratio 27.3 RATIO (10-20); Calcium,Total 9.0 mg/dL (7.6-11.0); Carbon Dioxide 37.5 mmol/L (21.0-32.0); Chloride 85 mmol/L (98-108); Estimated Creatinine Clearance 50.67 ml/min (50-250); Glucose 130 mg/dL (70-99); Potassium 4.2 mmol/L (3.3-5.1)
--- NOTE | 2025-04-21 08:33 | PN.HOSP_ITS ---
Reason for Visit
--- NOTE | 2025-04-21 08:33 | VDLE_ITS ---
Reason For Study VL/Venous Duplex US - Chase Extrem
--- NOTE | 2025-04-21 08:33 | PCM.PN.HOSP ---
Reason for Visit Chief Complaint: Worsening hyponatremia and falls Objective Data Objective Data Vital Signs: Vital Signs Temp Pulse Resp BP Pulse Ox O2 Del Method O2 Flow Rate 98.4 F 82 22 H 121/58 H 97 Nasal Cannula 2 04/21/25 04:00 04/21/25 04:00 04/21/25 04:00 04/21/25 04:00 04/21/25 08:31 04/21/25 08:31 04/21/25 08:31 Oxygen Flow Rate (L/min) 2 Oxygen Delivery Method Nasal Cannula Weight: 239 lb 13.807 oz Body Mass Index (BMI) 37.5 Intake & Output: Intake and Output for Last 24 Hours 04/19/25 04/20/25 04/21/25 23:59 23:59 23:59 Intake Total 3300 / 3300 660 / 660 1240 / 1240 Output Total 300 / 300 Balance 3280 / 3280 360 / 360 1240 / 1240 Lab / Micro Data 04/21/25 04:00 04/21/25 04:00 Labs: Laboratory Results - last 24 hr 04/20/25 09:35: Urine Color Yellow, Urine Clarity Sl. Cloudy, Urine pH 6.0, Ur Specific [place] 1.010, Urine Protein 30 H, Urine Glucose (UA) 250 H, Urine Ketones Negative, Urine Occult Blood Negative, Urine Nitrite Negative, Urine Bilirubin Negative, Urine Urobilinogen Normal, Ur Leukocyte Esterase Negative, Urine RBC 0 SEEN, Urine WBC 0 SEEN, Ur Squamous Epith Cells 0-5 SEEN, Ur Transition Epith Cell 0-5 SEEN, Urine Bacteria 0 SEEN, Urine Mucus 0 SEEN, Urine Osmolality 263 04/20/25 09:35: Urine Osmolality Cancelled, Ur Random Sodium 34, Urine Opiates Screen NEGATIVE, U Buprenorphine Qual NEGATIVE, Ur Oxycodone Screen NEGATIVE, Urine Methadone Screen NEGATIVE, Urine Fentanyl Screen NEGATIVE, Ur Barbiturates Screen NEGATIVE, Ur Phencyclidine Scrn NEGATIVE, Ur Amphetamines Screen NEGATIVE, U Benzodiazepines Scrn NEGATIVE, Urine Cocaine Screen NEGATIVE, U Cannabinoids Screen NEGATIVE 04/21/25 04:00: WBC 7.6, RBC 3.91 L, Hgb 11.5 L, Hct 35.2 L, MCV 90.0, MCH 29.4, MCHC 32.7, RDW Std Deviation 46.6 H, RDW Coeff of [place] 14.6, Plt Count 113 L, MPV 10.7, Immature Gran % (Auto) 1.100 H, Neut % (Auto) 74.4 H, Lymph % (Auto) 13.3 L, [place] % (Auto) 8.1, Eos % (Auto) 2.6, Baso % (Auto) 0.5, Absolute Neuts (auto) 5.7, Absolute Lymphs (auto) 1.01, Nucleated RBC % 0, Sodium 127 L, Potassium 4.2, Chloride 85 L, Carbon Dioxide 37.5 H, Anion Gap 5, BUN 33 H, Creatinine 1.20, Estim Creat Clear Calc 50.67, Est GFR (MDRD) Non-Af 47 L, BUN/Creatinine Ratio 27.3 H, Glucose 130 H, Calcium 9.0 Micro: Microbiology 04/20/25 09:35 Urine, Clean Catch Legionella Antigen - Final 04/20/25 09:35 Urine, Clean Catch Streptococcus pneumoniae Antigen (M - Final 04/19/25 16:10 Nasal Secretion MRSA (PCR) - Final 04/19/25 16:10 Mucosa - Nose SARS-CoV-2, Influenza & RSV (PCR) - Final Physical Exam Narrative Seen and examined Patient overall feeling good. Patient concerned about antibiotic which was started for left shoulder infection by Dr. Andrade. Doxycycline resumed probably it was held because of confusion and not safe p.o. Blood pressure is good currently systolic 150s Remembers month ER day. She has chronic history of fall since she was a kid as she had polio Physical exam General: Awake, intermittent confusion. Oriented x3, Cooperative HEENT: Atraumatic, PERRLA, EOMI, Normocephalic. Oral: No Gingival or Mucosal Lesions/ Ulcerations Neck: Supple, No JVD, Negative Carotid Bruits Chest wall/Lungs: Air entry diminished in bilateral lung bases. Mild occasional crepitation in left lung base Cardiovascular: Low BP. No M/G/R Abdomen: Bowel Sounds Present, Soft, Non Tender, Non-Distended : No dysuria. No renal angle tenderness. No suprapubic tenderness. Extremities: No edema, Capillary Refill Less than 3 Seconds Skin: Bruise on the right knee Musculoskeletal: Weakness of lower extremities, 4+/5 at knees and hip joints. Left shoulder prosthetic joint. No Tenderness to Palpation of Joints or Extremities Neurological: Cranial nerves II-XII grossly intact, DTR 2+/4. No acute focal neurological deficit. Psych/Mental Status: Flat affect Assessment & Plan Assessment/Plan (1) Hyponatremia: PLAN: Plan Patient is a 75-year-old female who presented to [facility] ED on 04/18/2025 with worsening hyponatremia and weakness with falls at home. 1. Hyponatremia probably due to diuretic which she had for 2 weeks: ? Admit under inpatient status to PCU. Nephrology consulted. Baseline sodium around 140; remained around 140 during recent complicated hospitalization from 03/18-03/26. Dropped significantly to sodium 128 on 04/09. Was instructed to discontinue home Lasix on 04/09 but continued until 04/15. Repeat sodium 125 on 04/16 and has continued to worsen to sodium 121 on 04/18. Severe hyperchloremia with chloride level 71-74 on recent labs. Patient was also on stress dose steroid for 2 days during recent hospitalization. She was recently discharged on 03/24/2025 after management for undifferentiated shock, acute hypoxic and hypercarbic respiratory failure which required ventilator. 04/19: Repeat sodium was 123. Improved 3 mEq. Senior Product Integrity Engineer is consulted. Calculated serum iron 267. Measured serum iron 310. Osmolar gap 43. Unclear etiology. The usual differential diagnosis of increased osmolar gap are methanol, ketoacidosis, lactic acidosis, ethylene glycol, propylene glycol, isopropanol. Repeat the serum osmolarity and osmolar gap. VBG ordered. 04/20: VBG 7.48/mixed pCO2 44, PaO2 133/bicarb 33/34. Bicarb and BMP was also 33.7. Anion gap 9. Sodium is still low 125 x 2. CPK 25. Lactic acid 1.3. Serum osmolality 279 which seems more appropriate than earlier reported 310. Calculated on repeat BMP 04/19 271, osmolar gap 8.0 which is in normal range.UA negative, hCG 1.015, protein 30. Senior Product Integrity Engineer on board 04/21: Serum sodium improved 127 today. K4.2. Bicarb of 37.5. Anion gap 5. Osmolar gap was normal as mentioned above. 2. ELVIA with mild hyperkalemia, severe non-anion gap metabolic acidosis, severe hypochloremia ? Nephrology consulted as above. Creatinine 1.30, potassium 5.4 on admit. Baseline creatinine around 0.7-0.8. Bicarb 42. Chloride level 71-74 on recent labs as above. Notably creatinine was 1.6-1.9 on recent labs and has improved to 1.30 with discontinuing home Lasix and losartan. Suspect prerenal etiology due to overdiuresis. 04/19: Continue holding Lasix, losartan, indapamide and spironolactone. Severe NAGMA is presumed secondary to chronic respiratory failure as below. 04/20: Creatinine 1.31. BUN 39, BUN/creatinine ratio 29.4 still high 3. 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 Patient with recent complicated hospitalization and required intubation for combined respiratory failure from 03/18-03/20. Was discharged home on 2 L nasal cannula at rest and 3 L with exertion. Has suspected NEEL and recommendation was for outpatient workup for this which has not been completed yet. Stable on 2 L nasal cannula at rest in the ED. Monitor. Continue home albuterol inhaler as needed. 04/20: Rib chest x-ray reviewed shows mild pulmonary vascular congestion and bibasilar atelectasis but no obvious shortness of breath. Continue incentive spirometry and PEP for 1 week 4. Chronic HFpEF, hypertension ? Echo during recent hospitalization on 03/19 showed EF 75%, moderate concentric LV hypertrophy, no other concerning findings. Mildly hypertensive to the 140s systolic in the ED. Holding home Lasix, losartan, indapamide and spironolactone as above. Okay to continue home Coreg. 5. Acute on chronic debility with recent falls ? PT/OT/case management consulted. Patient lives at home alone. She was able to be discharged home with home health care after recent prolonged hospitalization. Has had worsening functional status with small falls over the past week or so per family. Appreciate therapy recommendations. 6. Anxiety, depression, insomnia, restless leg syndrome, neuropathy ? Continue home bupropion, duloxetine, gabapentin, pramipexole, mirtazapine and melatonin. 7. Class II obesity ? BMI 36 on admit. Complicates hospital course and care. 8. 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 No evidence of infection. Patient on DrStephanie Twice daily and continued. Patient also denied prior history of DVT but Tru Trinh wanted venous duplex of the lower extremities. Venous duplex ordered DVT prophylaxis: Heparin subcu CODE STATUS: DNR CCA, okay to intubate Microbiology Past 72 Hours 04/20/25 09:35 Urine, Clean Catch Legionella Antigen - Final 04/20/25 09:35 Urine, Clean Catch Streptococcus pneumoniae Antigen (M - Final 04/19/25 16:10 Nasal Secretion MRSA (PCR) - Final 04/19/25 16:10 Mucosa - Nose SARS-CoV-2, Influenza & RSV (PCR) - Final Laboratory Results 04/20/25 09:35: Urine Color Yellow, Urine Clarity Sl. Cloudy, Urine pH 6.0, Ur Specific [place] 1.010, Urine Protein 30 H, Urine Glucose (UA) 250 H, Urine Ketones Negative, Urine Occult Blood Negative, Urine Nitrite Negative, Urine Bilirubin Negative, Urine Urobilinogen Normal, Ur Leukocyte Esterase Negative, Urine RBC 0 SEEN, Urine WBC 0 SEEN, Ur Squamous Epith Cells 0-5 SEEN, Ur Transition Epith Cell 0-5 SEEN, Urine Bacteria 0 SEEN, Urine Mucus 0 SEEN, Urine Osmolality 263 04/20/25 09:35: Urine Osmolality Cancelled, Ur Random Sodium 34, Urine Opiates Screen NEGATIVE, U Buprenorphine Qual NEGATIVE, Ur Oxycodone Screen NEGATIVE, Urine Methadone Screen NEGATIVE, Urine Fentanyl Screen NEGATIVE, Ur Barbiturates Screen NEGATIVE, Ur Phencyclidine Scrn NEGATIVE, Ur Amphetamines Screen NEGATIVE, U Benzodiazepines Scrn NEGATIVE, Urine Cocaine Screen NEGATIVE, U Cannabinoids Screen NEGATIVE 04/21/25 04:00: WBC 7.6, RBC 3.91 L, Hgb 11.5 L, Hct 35.2 L, MCV 90.0, MCH 29.4, MCHC 32.7, RDW Std Deviation 46.6 H, RDW Coeff of [place] 14.6, Plt Count 113 L, MPV 10.7, Immature Gran % (Auto) 1.100 H, Neut % (Auto) 74.4 H, Lymph % (Auto) 13.3 L, [place] % (Auto) 8.1, Eos % (Auto) 2.6, Baso % (Auto) 0.5, Absolute Neuts (auto) 5.7, Absolute Lymphs (auto) 1.01, Nucleated RBC % 0, Sodium 127 L, Potassium 4.2, Chloride 85 L, Carbon Dioxide 37.5 H, Anion Gap 5, BUN 33 H, Creatinine 1.20, Estim Creat Clear Calc 50.67, Est GFR (MDRD) Non-Af 47 L, BUN/Creatinine Ratio 27.3 H, Glucose 130 H, Calcium 9.0 Charges/Coding Visit Charges Inpatient E&M: 81987 Subs Hosp L2
[2025-04-21] MEDS: buPROPion (XL) 150 MG TABLET.XL PO (09:47)
[2025-04-21] MEDS: Lactobacillis Acidophilus 1 CAP PO (09:47)
[2025-04-21] MEDS: Heparin Injection (Vial) 5,000 UNIT/ML VIAL 5000 UNIT SC ×2 (09:47→21:54)
--- NOTE | 2025-04-21 15:56 | CHAPLAIN ---
Type of Pastoral Visit _x__ Initial Visit ___ Follow-up Visit ___ On-call Visit ___ General Patient Visit ___ Spiritual Assessment ___ Family Conference ___ Bereavement ___ Rapid Response ___ Code Blue ___ Other (describe below) Pastoral Care Referral From _x__ Patient ___ Family ___ Nurse ___ Physician ___ Road Engineer ___ Lead Radiation Therapist ___ Other (describe below) Sacrament/Intervention _x__ Active listening ___ Anointing ___ Mandaeism ___ Bereavement ___ Communion ___ Lesley exploration ___ ___ Life review _x__ Prayer ___ Reconciliation ___ Sacrament of Sick _x__ Supportive presence ___ Wedding ___ Other (describe below) Pastoral Comments patient was met before in previous admissions; pt has concerns about why she is having health issues and her goal is for causes and remedies to be found; pt has much friend support and a mosque connection that gives her care; pt welcomes prayers for her needs; pt asks for future visits as 'I expect to be here for a while';
--- NOTE | 2025-04-21 20:50 | PCM.CONS.R ---
Assessment & Plan Assessment/Plan (1) Hyponatremia: PLAN: sodium and chloride were normal last month. consistent with hypovolemic hyponatremia and contraction alkalosis. sodium is slowly improving. asymptomatic from hyponatremia. (2) Hypochloremic alkalosis: HPI Consult Data Date of Consult: 04/21/25 HPI Narrative Reason for Consultation: Hyponatremia HPI Narrative: OSCAR ROMAN, is a 75 F who presents to the hospital with syncope. nephrology on consultation in view of hyponatremia. sodium was normal as of last month. apparently was started on lasix due to dyspnea. she says breathing improved somewhat. does not think she lost a lot of weight. no edema right now. no urinary complaints. 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 Essential (primary) hypertension Debility Infection and inflammatory reaction due to other internal joint prosthesis, initial encounter Insomnia MRSA (methicillin resistant staph aureus) culture positive Wears glasses Post-menopausal Depression Anxiety Walker as ambulation aid Ambulates with cane Arthritis High cholesterol Back pain Restless legs Former smoker Shortness of breath on exertion History of pain when walking History of edema Hypertension Home Medications ?Medication ?Instructions ?Recorded ?Last Taken ?Type losartan 50 mg tablet 50 mg PO BID BP 09/19/14 09/13/24 History melatonin 5 mg tablet 10 mg PO QHS INSOMNIA 09/19/14 04/17/25 History bupropion HCl 300 mg 24 hr tablet, 150 mg PO DAILY DEPRESSION 06/11/20 04/18/25 History extended release gabapentin 600 mg tablet 600 mg PO QHS SLEEP 06/11/20 04/17/25 History mirtazapine 15 mg tablet 15 mg PO QHS INSOMNIA 06/24/20 04/17/25 History duloxetine 30 mg capsule,delayed 30 mg PO DAILY DEPRESSION 09/11/24 04/18/25 History release (Cymbalta) aspirin 81 mg chewable tablet 81 mg PO BID blood thinner #0 tabs 09/17/24 04/18/25 Rx loperamide 2 mg capsule 2 mg PO Q2H PRN PRN DIARRHEA #0 09/17/24 Unknown Rx caps albuterol sulfate 90 mcg/actuation 2 inh inhalation Q4H PRN shortness 03/18/25 Unknown History aerosol inhaler of breath or wheezing doxycycline hyclate 100 mg capsule 100 mg PO BID abx 03/18/25 04/18/25 History indapamide 2.5 mg tablet 2.5 mg PO DAILY diuretic 03/18/25 Unknown History naproxen sodium 220 mg tablet 440 mg PO DAILY PRN pain 03/18/25 Unknown History potassium citrate 10 mEq (1,080 10 meq PO DAILY 03/18/25 Unknown History mg) tablet,extended release pramipexole 1 mg tablet 1 mg PO QHS restless leg 03/18/25 Unknown History spironolactone 50 mg tablet 50 mg PO DAILY diuretic 03/18/25 04/18/25 History carvedilol 3.125 mg tablet 1.56 mg PO BID bp 04/16/25 04/18/25 History lactobacillus combination no.9 4 4,000 mmu cells PO QDAY GI health 04/16/25 Unknown History billion cell capsule (Adult 50 Plus Probiotic) ondansetron HCl 4 mg tablet 4 mg PO Q8 PRN nausea and vomiting 04/16/25 Unknown History pramipexole 0.5 mg tablet 0.5 mg PO DINNER RLS 04/16/25 Unknown History OXYGEN - Supplemental ([facility] hypoxia 04/21/25 Unknown History INFORMATIONAL USE ONLY) Allergy/AdvReac Type Severity Reaction Status Date / Time Penicillins Allergy Anaphylaxis Verified 04/18/25 13:45 Family History Mother Heart disease Diabetes Brother Heart disease Diabetes Brother Heart disease pacemaker Sister Atrial fibrillation Surgical History History of reverse total replacement of right shoulder joint History of surgery Hx of colonoscopy Hx of right cataract extraction Hx of left cataract extraction History of partial colectomy Hx of appendectomy Hx of total hip arthroplasty Hx of total shoulder replacement Hx of lumbar discectomy Hx of total shoulder replacement Hx of total hip arthroplasty Social History household members: none Smoking Status: Former smoker how long ago did patient quit smokin years ago alcohol intake: never substance use type: does not use caffeine: No ROS ROS Narrative negative except above Physical Exam Narrative Alert awake oriented x 3 no obvious distress no pallor no icterus no JVD s1s2 no murmurs lungs clear abdomen soft no organomegaly no edema no cyanosis Lab / Micro Data 04/21/25 04:00 04/21/25 04:00 Labs: Laboratory Results - last 24 hr 04/21/25 04:00: WBC 7.6, RBC 3.91 L, Hgb 11.5 L, Hct 35.2 L, MCV 90.0, MCH 29.4, MCHC 32.7, RDW Std Deviation 46.6 H, RDW Coeff of [place] 14.6, Plt Count 113 L, MPV 10.7, Immature Gran % (Auto) 1.100 H, Neut % (Auto) 74.4 H, Lymph % (Auto) 13.3 L, [place] % (Auto) 8.1, Eos % (Auto) 2.6, Baso % (Auto) 0.5, Absolute Neuts (auto) 5.7, Absolute Lymphs (auto) 1.01, Nucleated RBC % 0, Sodium 127 L, Potassium 4.2, Chloride 85 L, Carbon Dioxide 37.5 H, Anion Gap 5, BUN 33 H, Creatinine 1.20, Estim Creat Clear Calc 50.67, Est GFR (MDRD) Non-Af 47 L, BUN/Creatinine Ratio 27.3 H, Glucose 130 H, Calcium 9.0 Imaging Radiology Impression Venous Doppler Study 04/21/25 08:33 Interpretation Summary Deep veins of the lower extremities are bilaterally patent and compressible segmentally. There is no evidence of deep vein thrombosis on either side. Valvular competence appears intact within the proximal deep venous systems bilaterally. The great saphenous veins appear bilaterally patent and compressible segmentally. Ordering Physician: Garfield Pierson Referring Physician: Tru Trinh Performed By: Dada Andujar, RVT
[2025-04-21] MEDS: Senna/Docusate Sodium 1 Tablet 2 TABLET PO (21:55)
[2025-04-21] MEDS: MELATONIN 10 MG TABLET PO (21:56)
[2025-04-22] VITALS (7 sets, daily range): BP systolic 113–149; BP diastolic 68–88; PULSE 77–99; RESP 18–20; TEMP 35.8–37.1; O2SAT 91–100
[2025-04-22 06:02] LABS: Hematocrit 38.2 % (37-47); Hemoglobin 12.3 g/dL (12.0-15.0); Immature Granulocytes Count 0.110 X10^3/uL (0.0-0.0); Mean Corp Hgb Conc 32.2 g/dL (32-36); Mean Corpuscular Volume 90.7 fL (81-99); Mean Platelet Vol. 10.6 fl (6.2-12.0); NRBC Flagged by Analyzer 0 % (0-5); Platelet Count 115 K/mm3 (150-450); RBC Distribution Width CV 14.6 % (11.6-14.6); RBC Distribution Width SD 47.8 fl (35.1-43.9); Red Blood Count 4.21 M/mm3 (4.2-5.4); White Blood Count 6.2 K/mm3 (4.4-11.0)
[2025-04-22 06:26] LABS: Anion Gap 6 (5-15); BUN 28 mg/dL (4-19); BUN/Creat Ratio 25.4 RATIO (10-20); Calcium,Total 9.7 mg/dL (7.6-11.0); Carbon Dioxide 40.0 mmol/L (21.0-32.0); Chloride 88 mmol/L (98-108); Estimated Creatinine Clearance 54.29 ml/min (50-250); Glucose 102 mg/dL (70-99); Potassium 4.7 mmol/L (3.3-5.1)
[2025-04-22] MEDS: Lactobacillis Acidophilus 1 CAP PO (08:37)
[2025-04-22] MEDS: buPROPion (XL) 150 MG TABLET.XL PO (08:37)
[2025-04-22] MEDS: Heparin Injection (Vial) 5,000 UNIT/ML VIAL 5000 UNIT SC ×2 (08:37→22:05)
[2025-04-22] MEDS: 0.9% Saline Lock 10 ML Syringe IV ×2 (08:44→22:06)
--- NOTE | 2025-04-22 09:17 | CASEMGMT ---
Discharge Planning A list of SNF providers including quality and resource use data and consistent with the patient's preferred geographic region, medical needs, and insurance network was created in [facility] Guide.? This list was provided to the RN EFRAÍN. Comfort Harvey, Discharge Planning Asst
--- NOTE | 2025-04-22 10:02 | CASEMGMT ---
Social Work SW provided the patient with a list of?SNF?providers including quality and resource use data and consistent with the patient's preferred geographic region, medical needs, and insurance network was created in CarePort Guide.?Patients first choice is [facility], but they did not have any available beds. Patient reported she would like to see if she qualifies for Medicaid. SW made a referral to [facility]. Plan: SW will follow up this afternoon regarding SNF choices. KOBE Reddy
--- NOTE | 2025-04-22 12:12 | CASEMGMT ---
Social work SW spoke with the patient regarding which SNF she wanted referrals sent too. Patient reported she has not looked at the list. SW informed her she is medically ready for DC and a DC plan needs to be started. SW asked the patient to review the list. SW informed her SW will follow up to see her choices for SNF's. SW informed her TCU does not have availability. KOBE Diamond
--- NOTE | 2025-04-22 13:42 | CASEMGMT ---
Social Work SW spoke with the patient and patient chose [facility] 1st choice and [facility] as her 2nd choice for a SNF. Patient originally wanted TCU, but TCU does not have availability. KOBE Diamond
--- NOTE | 2025-04-22 13:56 | CASEMGMT ---
Addendum entered by Comfort Harvey 04/22/25 14:05: [facility] has accepted and will submit for precert. SW updated. Comfort Harvey DC Planning Asst. Original Note: Discharge Planning Referral sent via [facility]Port to [facility] with note to submit for precert if able to accept. Comfort Harvey DC Planning Asst.
--- NOTE | 2025-04-22 15:01 | CASEMGMT ---
Social Work SW spoke with the patient and informed her [facility] has accepted her. SW explained her insurance will need to approve her DC to [facility] and will provide a certain number of approval days. KOBE Diamond
--- NOTE | 2025-04-22 17:25 | PCM.PN.REN ---
Subjective Subjective no new events Objective Data Objective Data Vital Signs: Vital Signs Temp Pulse Resp BP Pulse Ox O2 Del Method O2 Flow Rate 98.7 F 99 20 H 131/75 H 97 Nasal Cannula 2 04/22/25 16:17 04/22/25 16:17 04/22/25 16:17 04/22/25 16:17 04/22/25 16:17 04/22/25 16:17 04/22/25 16:17 Oxygen Flow Rate (L/min) 2 Oxygen Delivery Method Nasal Cannula Weight: 108.8 kg Body Mass Index (BMI) 37.5 Intake & Output: Intake and Output for Last 24 Hours 04/20/25 04/21/25 04/22/25 23:59 23:59 23:59 Intake Total 660 / 660 1939 Output Total 300 / 300 Balance 360 / 360 1939 Lab / Micro Data 04/22/25 05:20 04/22/25 05:20 Labs: Laboratory Results - last 24 hr 04/22/25 05:20: WBC 6.2, RBC 4.21, Hgb 12.3, Hct 38.2, MCV 90.7, MCH 29.2, MCHC 32.2, RDW Std Deviation 47.8 H, RDW Coeff of Terry 14.6, Plt Count 115 L, MPV 10.6, Immature Gran % (Auto) 1.800 H, Neut % (Auto) 66.8, Lymph % (Auto) 18.2 L, [place] % (Auto) 8.7, Eos % (Auto) 3.7, Baso % (Auto) 0.8, Absolute Neuts (auto) 4.2, Absolute Lymphs (auto) 1.13, Nucleated RBC % 0, Sodium 134, Potassium 4.7, Chloride 88 L, Carbon Dioxide 40.0 H, Anion Gap 6, BUN 28 H, Creatinine 1.12, Estim Creat Clear Calc 54.29, Est GFR (MDRD) Non-Af 51 L, BUN/Creatinine Ratio 25.4 H, Glucose 102 H, Calcium 9.7 Micro: Microbiology 04/19/25 15:10 Blood Culture (Wb) #2 - Right Hand Blood Culture - Preliminary No growth in 48 hours. 04/19/25 15:05 Blood Culture (Wb) - Anticubital Right Blood Culture - Preliminary No growth in 48 hours. 04/20/25 09:35 Urine, Clean Catch Urine Culture - Final Mixed Gram Pos & Gram Neg Org 04/20/25 09:35 Urine, Clean Catch Legionella Antigen - Final 04/20/25 09:35 Urine, Clean Catch Streptococcus pneumoniae Antigen (M - Final 04/19/25 16:10 Nasal Secretion MRSA (PCR) - Final 04/19/25 16:10 Mucosa - Nose SARS-CoV-2, Influenza & RSV (PCR) - Final Radiography Diagnostic Testing: Radiology Impression Venous Doppler Study 04/21/25 08:33 Interpretation Summary Deep veins of the lower extremities are bilaterally patent and compressible segmentally. There is no evidence of deep vein thrombosis on either side. Valvular competence appears intact within the proximal deep venous systems bilaterally. The great saphenous veins appear bilaterally patent and compressible segmentally. Ordering Physician: Garfield Pierson Referring Physician: Tru Trinh Performed By: Dada Andujar RVT Physical Exam Narrative Alert awake oriented x 3 no obvious distress no pallor no icterus no JVD s1s2 no murmurs lungs clear abdomen soft no organomegaly no edema no cyanosis Assessment & Plan Assessment/Plan (1) Hyponatremia: PLAN: sodium and chloride were normal last month. consistent with hypovolemic hyponatremia and contraction alkalosis. Sodium is now better. Not much peripheral edema. Breathing is back to baseline. Bicarbonate is still on the higher side. On review of her previous lab data, bicarbonate levels at baseline are around 30-34. Hold off on Diamox for now. Discussed with hospitalist. Patient asking about discharge plans. From nephrology standpoint, she can be discharged. (2) Hypochloremic alkalosis:
--- NOTE | 2025-04-22 17:29 | PN.HOSP_ITS ---
Reason for Visit
--- NOTE | 2025-04-22 17:29 | PCM.PN.HOSP ---
Reason for Visit Chief Complaint: Worsening hyponatremia and falls Objective Data Objective Data Vital Signs: Vital Signs Temp Pulse Resp BP Pulse Ox O2 Del Method O2 Flow Rate 98.7 F 99 20 H 131/75 H 97 Nasal Cannula 2 04/22/25 16:17 04/22/25 16:17 04/22/25 16:17 04/22/25 16:17 04/22/25 16:17 04/22/25 16:17 04/22/25 16:17 Oxygen Flow Rate (L/min) 2 Oxygen Delivery Method Nasal Cannula Weight: 239 lb 13.807 oz Body Mass Index (BMI) 37.5 Intake & Output: Intake and Output for Last 24 Hours 04/20/25 04/21/25 04/22/25 23:59 23:59 23:59 Intake Total 660 / 660 1939 Output Total 300 / 300 Balance 360 / 360 1939 Lab / Micro Data 04/22/25 05:20 04/22/25 05:20 Labs: Laboratory Results - last 24 hr 04/22/25 05:20: WBC 6.2, RBC 4.21, Hgb 12.3, Hct 38.2, MCV 90.7, MCH 29.2, MCHC 32.2, RDW Std Deviation 47.8 H, RDW Coeff of Terry 14.6, Plt Count 115 L, MPV 10.6, Immature Gran % (Auto) 1.800 H, Neut % (Auto) 66.8, Lymph % (Auto) 18.2 L, [place] % (Auto) 8.7, Eos % (Auto) 3.7, Baso % (Auto) 0.8, Absolute Neuts (auto) 4.2, Absolute Lymphs (auto) 1.13, Nucleated RBC % 0, Sodium 134, Potassium 4.7, Chloride 88 L, Carbon Dioxide 40.0 H, Anion Gap 6, BUN 28 H, Creatinine 1.12, Estim Creat Clear Calc 54.29, Est GFR (MDRD) Non-Af 51 L, BUN/Creatinine Ratio 25.4 H, Glucose 102 H, Calcium 9.7 Micro: Microbiology 04/19/25 15:10 Blood Culture (Wb) #2 - Right Hand Blood Culture - Preliminary No growth in 48 hours. 04/19/25 15:05 Blood Culture (Wb) - Anticubital Right Blood Culture - Preliminary No growth in 48 hours. 04/20/25 09:35 Urine, Clean Catch Urine Culture - Final Mixed Gram Pos & Gram Neg Org 04/20/25 09:35 Urine, Clean Catch Legionella Antigen - Final 04/20/25 09:35 Urine, Clean Catch Streptococcus pneumoniae Antigen (M - Final 04/19/25 16:10 Nasal Secretion MRSA (PCR) - Final 04/19/25 16:10 Mucosa - Nose SARS-CoV-2, Influenza & RSV (PCR) - Final Radiography Diagnostic Testing: Radiology Impression Venous Doppler Study 04/21/25 08:33 Interpretation Summary Deep veins of the lower extremities are bilaterally patent and compressible segmentally. There is no evidence of deep vein thrombosis on either side. Valvular competence appears intact within the proximal deep venous systems bilaterally. The great saphenous veins appear bilaterally patent and compressible segmentally. Ordering Physician: Garfield Pierson Referring Physician: Tru Trinh Performed By: Dada Andujar RVT Physical Exam Narrative Seen and examined Patient having soft, well-formed bowel movement, Sample does not meet criteria for C. difficile. Feels weak. Continue doxycycline left shoulder infection by Dr. Andrade. Serum sodium is better Physical exam General: Awake, alert oriented x3, Cooperative HEENT: Atraumatic, PERRLA, EOMI, Normocephalic. Oral: No Gingival or Mucosal Lesions/ Ulcerations Neck: Supple, No JVD, Negative Carotid Bruits Chest wall/Lungs: Air entry diminished in bilateral lung bases. No crepitation Cardiovascular: Low BP. No M/G/R Abdomen: Bowel Sounds Present, Soft, Non Tender, Non-Distended : No dysuria. No renal angle tenderness. No suprapubic tenderness. Extremities: No edema, Capillary Refill Less than 3 Seconds Skin: Bruise on the right knee Musculoskeletal: Weakness of lower extremities, 4+/5 at knees and hip joints. Left shoulder prosthetic joint. No Tenderness to Palpation of Joints or Extremities Neurological: Cranial nerves II-XII grossly intact, DTR 2+/4. No acute focal neurological deficit. Psych/Mental Status: Flat affect Assessment & Plan Assessment/Plan (1) Hyponatremia: PLAN: Plan Patient is a 75-year-old female who presented to [facility] ED on 04/18/2025 with worsening hyponatremia and weakness with falls at home. 1. Hyponatremia probably due to diuretic which she had for 2 weeks: ? Admit under inpatient status to PCU. Nephrology consulted. Baseline sodium around 140; remained around 140 during recent complicated hospitalization from 03/18-03/26. Dropped significantly to sodium 128 on 04/09. Was instructed to discontinue home Lasix on 04/09 but continued until 04/15. Repeat sodium 125 on 04/16 and has continued to worsen to sodium 121 on 04/18. Severe hyperchloremia with chloride level 71-74 on recent labs. Patient was also on stress dose steroid for 2 days during recent hospitalization. She was recently discharged on 03/24/2025 after management for undifferentiated shock, acute hypoxic and hypercarbic respiratory failure which required ventilator. 04/19: Repeat sodium was 123. Improved 3 mEq. Specialty Molder is consulted. Calculated serum iron 267. Measured serum iron 310. Osmolar gap 43. Unclear etiology. The usual differential diagnosis of increased osmolar gap are methanol, ketoacidosis, lactic acidosis, ethylene glycol, propylene glycol, isopropanol. Repeat the serum osmolarity and osmolar gap. VBG ordered. 04/20: VBG 7.48/mixed pCO2 44, PaO2 133/bicarb 33/34. Bicarb and BMP was also 33.7. Anion gap 9. Sodium is still low 125 x 2. CPK 25. Lactic acid 1.3. Serum osmolality 279 which seems more appropriate than earlier reported 310. Calculated on repeat BMP 04/19 271, osmolar gap 8.0 which is in normal range.UA negative, hCG 1.015, protein 30. Specialty Molder on board 04/21: Serum sodium improved 127 today. K4.2. Bicarb of 37.5. Anion gap 5. Osmolar gap was normal as mentioned above. 04/22 was seen by manager club. Sodium and chloride at baseline. Sodium 130 4K4.7. Chloride 88. Wants to go to TCU 2. ELVIA with mild hyperkalemia, severe non-anion gap metabolic acidosis, severe hypochloremia ? Nephrology consulted as above. Creatinine 1.30, potassium 5.4 on admit. Baseline creatinine around 0.7-0.8. Bicarb 42. Chloride level 71-74 on recent labs as above. Notably creatinine was 1.6-1.9 on recent labs and has improved to 1.30 with discontinuing home Lasix and losartan. Suspect prerenal etiology due to overdiuresis. 04/19: Continue holding Lasix, losartan, indapamide and spironolactone. Severe NAGMA is presumed secondary to chronic respiratory failure as below. 04/20: Creatinine 1.31. BUN 39, BUN/creatinine ratio 29.4 still high 04/22: BUN/creatinine 28/1.12. 3. 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 Patient with recent complicated hospitalization and required intubation for combined respiratory failure from 03/18-03/20. Was discharged home on 2 L nasal cannula at rest and 3 L with exertion. Has suspected NEEL and recommendation was for outpatient workup for this which has not been completed yet. Stable on 2 L nasal cannula at rest in the ED. Monitor. Continue home albuterol inhaler as needed. 04/20: Rib chest x-ray reviewed shows mild pulmonary vascular congestion and bibasilar atelectasis but no obvious shortness of breath. Continue incentive spirometry and PEP for 1 week 04/22: Patient on 2 L of baseline oxygen. Incentive spirometry advised 4. Chronic HFpEF, hypertension ? Echo during recent hospitalization on 03/19 showed EF 75%, moderate concentric LV hypertrophy, no other concerning findings. Mildly hypertensive to the 140s systolic in the ED. Holding home Lasix, losartan, indapamide and spironolactone as above. Okay to continue home Coreg. 5. Acute on chronic debility with recent falls ? PT/OT/case management consulted. Patient lives at home alone. She was able to be discharged home with home health care after recent prolonged hospitalization. Has had worsening functional status with small falls over the past week or so per family. Appreciate therapy recommendations. 6. Anxiety, depression, insomnia, restless leg syndrome, neuropathy ? Continue home bupropion, duloxetine, gabapentin, pramipexole, mirtazapine and melatonin. 7. Class II obesity ? BMI 36 on admit. Complicates hospital course and care. 8. 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 No evidence of infection. Patient on Dr. Twice daily and continued. Patient also denied prior history of DVT but Tru Trinh wanted venous duplex of the lower extremities. Venous duplex ordered DVT prophylaxis: Heparin subcu CODE STATUS: DNR CCA, okay to intubate Microbiology Past 72 Hours 04/19/25 15:10 Blood Culture (Wb) #2 - Right Hand Blood Culture - Preliminary No growth in 48 hours. 04/19/25 15:05 Blood Culture (Wb) - Anticubital Right Blood Culture - Preliminary No growth in 48 hours. 04/20/25 09:35 Urine, Clean Catch Urine Culture - Final Mixed Gram Pos & Gram Neg Org 04/20/25 09:35 Urine, Clean Catch Legionella Antigen - Final 04/20/25 09:35 Urine, Clean Catch Streptococcus pneumoniae Antigen (M - Final 04/19/25 16:10 Nasal Secretion MRSA (PCR) - Final 04/19/25 16:10 Mucosa - Nose SARS-CoV-2, Influenza & RSV (PCR) - Final Laboratory Results 04/22/25 05:20: WBC 6.2, RBC 4.21, Hgb 12.3, Hct 38.2, MCV 90.7, MCH 29.2, MCHC 32.2, RDW Std Deviation 47.8 H, RDW Coeff of Terry 14.6, Plt Count 115 L, MPV 10.6, Immature Gran % (Auto) 1.800 H, Neut % (Auto) 66.8, Lymph % (Auto) 18.2 L, [place] % (Auto) 8.7, Eos % (Auto) 3.7, Baso % (Auto) 0.8, Absolute Neuts (auto) 4.2, Absolute Lymphs (auto) 1.13, Nucleated RBC % 0, Sodium 134, Potassium 4.7, Chloride 88 L, Carbon Dioxide 40.0 H, Anion Gap 6, BUN 28 H, Creatinine 1.12, Estim Creat Clear Calc 54.29, Est GFR (MDRD) Non-Af 51 L, BUN/Creatinine Ratio 25.4 H, Glucose 102 H, Calcium 9.7 Charges/Coding Visit Charges Inpatient E&M: 12993 Subs Hosp L2
[2025-04-22] MEDS: MELATONIN 10 MG TABLET PO (22:07)
[2025-04-23 03:00] VITALS: PULSE 103
[2025-04-23 03:23] VITALS: BMI 36.9
[2025-04-23 04:44] VITALS: BP 123/71; PULSE 88; RESP 19; TEMP 36.6; O2SAT 97
[2025-04-23 10:45] VITALS: BP 104/75; PULSE 96; RESP 18; TEMP 36.4; O2SAT 96
--- NOTE | 2025-04-23 10:53 | PCM.TXEXTCAR ---
Diet Diet Order/Speech Therapy: INPATIENT Hospital Diet / Speech Therapy Order(s) 04/18/25 19:57 Diet: Cardiac - Heart Healthy Food consistency:: Regular Liquid Consistency:: Regular/Thin Fluid restriction:: 1500 mL Routine Orders/Code Status Suppository Type: Dulcolax 10mg Suppository Frequency: Daily PRN DC O2, CPAP, BIPAP needs Home O2 Discharge instructions: No Wound(s) right knee: Wound Type: Abrasion Therapies Extremity Affected:: Bilateral Lower Physical Therapy: Eval and Treat Occupational Therapy: Eval and Treat Speech Therapy: Eval and Treat Problem/Diagnosis (1) Hyponatremia: Status: Acute Code(s): E87.1 - Hypo-osmolality and hyponatremia Plan Patient is a 75-year-old female who presented to [facility] ED on 04/18/2025 with worsening hyponatremia and weakness with falls at home. 1. Hyponatremia probably due to diuretic which she had for 2 weeks: ? Admit under inpatient status to PCU. Nephrology consulted. Baseline sodium around 140; remained around 140 during recent complicated hospitalization from 03/18-03/26. Dropped significantly to sodium 128 on 04/09. Was instructed to discontinue home Lasix on 04/09 but continued until 04/15. Repeat sodium 125 on 04/16 and has continued to worsen to sodium 121 on 04/18. Severe hyperchloremia with chloride level 71-74 on recent labs. Patient was also on stress dose steroid for 2 days during recent hospitalization. She was recently discharged on 03/24/2025 after management for undifferentiated shock, acute hypoxic and hypercarbic respiratory failure which required ventilator. 04/19: Repeat sodium was 123. Improved 3 mEq. [employer] is consulted. Calculated serum iron 267. Measured serum iron 310. Osmolar gap 43. Unclear etiology. The usual differential diagnosis of increased osmolar gap are methanol, ketoacidosis, lactic acidosis, ethylene glycol, propylene glycol, isopropanol. Repeat the serum osmolarity and osmolar gap. VBG ordered. 04/20: VBG 7.48/mixed pCO2 44, PaO2 133/bicarb 33/34. Bicarb and BMP was also 33.7. Anion gap 9. Sodium is still low 125 x 2. CPK 25. Lactic acid 1.3. Serum osmolality 279 which seems more appropriate than earlier reported 310. Calculated on repeat BMP 04/19 271, osmolar gap 8.0 which is in normal range.UA negative, hCG 1.015, protein 30. [employer] on board 04/21: Serum sodium improved 127 today. K4.2. Bicarb of 37.5. Anion gap 5. Osmolar gap was normal as mentioned above. 04/22 was seen by apprenticeship consultant. Sodium and chloride at baseline. Sodium 130 4K4.7. Chloride 88. Wants to go to TCU 2. ELVIA with mild hyperkalemia, severe non-anion gap metabolic acidosis, severe hypochloremia ? Nephrology consulted as above. Creatinine 1.30, potassium 5.4 on admit. Baseline creatinine around 0.7-0.8. Bicarb 42. Chloride level 71-74 on recent labs as above. Notably creatinine was 1.6-1.9 on recent labs and has improved to 1.30 with discontinuing home Lasix and losartan. Suspect prerenal etiology due to overdiuresis. 04/19: Continue holding Lasix, losartan, indapamide and spironolactone. Severe NAGMA is presumed secondary to chronic respiratory failure as below. 04/20: Creatinine 1.31. BUN 39, BUN/creatinine ratio 29.4 still high 04/22: BUN/creatinine 28/1.12. 3. 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 Patient with recent complicated hospitalization and required intubation for combined respiratory failure from 03/18-03/20. Was discharged home on 2 L nasal cannula at rest and 3 L with exertion. Has suspected NEEL and recommendation was for outpatient workup for this which has not been completed yet. Stable on 2 L nasal cannula at rest in the ED. Monitor. Continue home albuterol inhaler as needed. 04/20: Rib chest x-ray reviewed shows mild pulmonary vascular congestion and bibasilar atelectasis but no obvious shortness of breath. Continue incentive spirometry and PEP for 1 week 04/22: Patient on 2 L of baseline oxygen. Incentive spirometry advised 4. Chronic HFpEF, hypertension ? Echo during recent hospitalization on 03/19 showed EF 75%, moderate concentric LV hypertrophy, no other concerning findings. Mildly hypertensive to the 140s systolic in the ED. Holding home Lasix, losartan, indapamide and spironolactone as above. Okay to continue home Coreg. 5. Acute on chronic debility with recent falls ? PT/OT/case management consulted. Patient lives at home alone. She was able to be discharged home with home health care after recent prolonged hospitalization. Has had worsening functional status with small falls over the past week or so per family. Appreciate therapy recommendations. 6. Anxiety, depression, insomnia, restless leg syndrome, neuropathy ? Continue home bupropion, duloxetine, gabapentin, pramipexole, mirtazapine and melatonin. 7. Class II obesity ? BMI 36 on admit. Complicates hospital course and care. 8. 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 No evidence of infection. Patient on Dr. Twice daily and continued. Patient also denied prior history of DVT but Tru Trinh wanted venous duplex of the lower extremities. Venous duplex ordered DVT prophylaxis: Heparin subcu CODE STATUS: DNR CCA, okay to intubate Microbiology Past 72 Hours 04/19/25 15:10 Blood Culture (Wb) #2 - Right Hand Blood Culture - Preliminary No growth in 48 hours. 04/19/25 15:05 Blood Culture (Wb) - Anticubital Right Blood Culture - Preliminary No growth in 48 hours. 04/20/25 09:35 Urine, Clean Catch Urine Culture - Final Mixed Gram Pos & Gram Neg Org 04/20/25 09:35 Urine, Clean Catch Legionella Antigen - Final 04/20/25 09:35 Urine, Clean Catch Streptococcus pneumoniae Antigen (M - Final 04/19/25 16:10 Nasal Secretion MRSA (PCR) - Final 04/19/25 16:10 Mucosa - Nose SARS-CoV-2, Influenza & RSV (PCR) - Final Laboratory Results 04/22/25 05:20: WBC 6.2, RBC 4.21, Hgb 12.3, Hct 38.2, MCV 90.7, MCH 29.2, MCHC 32.2, RDW Std Deviation 47.8 H, RDW Coeff of Terry 14.6, Plt Count 115 L, MPV 10.6, Immature Gran % (Auto) 1.800 H, Neut % (Auto) 66.8, Lymph % (Auto) 18.2 L, Placer % (Auto) 8.7, Eos % (Auto) 3.7, Baso % (Auto) 0.8, Absolute Neuts (auto) 4.2, Absolute Lymphs (auto) 1.13, Nucleated RBC % 0, Sodium 134, Potassium 4.7, Chloride 88 L, Carbon Dioxide 40.0 H, Anion Gap 6, BUN 28 H, Creatinine 1.12, Estim Creat Clear Calc 54.29, Est GFR (MDRD) Non-Af 51 L, BUN/Creatinine Ratio 25.4 H, Glucose 102 H, Calcium 9.7 Allergies/Procedures Done in Hospital Allergies Penicillins Allergy (Verified 04/18/25 13:45) Anaphylaxis Type of Care/Length of Stay Estimated LOS: Convalescent Care Less Than 30 days Type of Care Needed: Skilled Rehab Potential: Good Prognosis: Good Additional Orders/Day of Discharge Day of Discharge: 04/23/25 Dietary and Speech Recommendations Dietitian Recommendations/Changes: Continue Cardiac diet with 1500mL/day FR. Will d/c ensure plus HP with meals at this time given maintained fluid restriction and improved oral intake. Order ONS as needed if PO regresses at meals. Discharge Plan Admission Admit Date/Time: 04/18/25 17:23 Attending Provider: Garfield Pierson Primary Care Provider: Kamar Grimes Consulting Providers: Jermaine Simms; Wally Waddell; Garrick Staples; Murtaza Hunter; Antwan Gardner; Abdirashid Smith; Gemini Briceño; Reginaldo Fatima; Rhonda Arceo; Alden Arcos; Rosalind Key; Jose Angel Handley; Petros Akbar; Julissa Lawrence; Jones Galindo; Bennett Peñaloza; Lamin Campos; Zakia Love; Sarah Hicks; Al Angel; Shaila Lai; Nayely Givens; Jamie Sawant; Brenna Young; Ruma Barnes; Ritu Felipe; Mari Fallon; Brenna Pierce; Luke Rojas; Travis Daley; Butch Ospina; Elva Mixon; John Shepard; Angel Alva; Alina Garcia; Roopa Sands; Odilia Lockwood; Adarsh Salcido; Pamella,Hermann; Gregory,Gage; Celestino Gallagher; Tacos Hollins; John Quinn; Keya Basilio Discharge Orders/Prescriptions Prescriptions: New sennosides-docusate sodium [Stimulant Laxative Plus] 8.6-50 mg Tablet 2 tab PO BID Qty: 0 0RF carvedilol 3.125 mg Tablet 3.125 mg PO BID Qty: 0 0RF Continued ondansetron HCl 4 mg tablet 4 mg PO Q8 PRN (Reason: nausea and vomiting) Adult 50 Plus Probiotic 4 billion cell capsule 4,000 mmu cells PO QDAY Rx Instructions: administer with a meal losartan 50 MG tablet 50 mg PO BID Patient Comments: BLOOD PRESSURE melatonin 5 MG tablet 10 mg PO QHS Patient Comments: SLEEP gabapentin 600 MG tablet 600 mg PO QHS bupropion HCl 300 MG tablet extended release 24 hr 150 mg PO DAILY mirtazapine 15 MG tablet 15 mg PO QHS potassium citrate 10 mEq (1,080 mg) tablet extended release 10 meq PO DAILY doxycycline hyclate 100 mg capsule 100 mg PO BID pramipexole 1 mg tablet 1 mg PO QHS albuterol sulfate 90 mcg/actuation HFA aerosol inhaler 2 inh inhalation Q4H PRN (Reason: shortness of breath or wheezing) duloxetine [Cymbalta] 30 mg capsule,delayed release(DR/EC) 30 mg PO DAILY loperamide 2 mg Capsule 2 mg PO Q2H PRN PRN (Reason: DIARRHEA) Qty: 0 0RF aspirin 81 mg Tablet,Chewable 81 mg PO BID Qty: 0 0RF pramipexole 0.5 mg tablet 0.5 mg PO DINNER OXYGEN - Supplemental ([facility] USE ONLY) Patient Comments: DME: [employer] 2 lpm NC continuous use, per CM note and patient. 3L with excertion Changed naproxen sodium 220 mg tablet 220 mg PO DAILY PRN (Reason: pain) 30 Days Qty: 0 0RF Held spironolactone 50 mg tablet 50 mg PO DAILY Hold Instructions: Hold it. Follow-up with nephrology before resumption. Discontinued indapamide 2.5 mg tablet 2.5 mg PO DAILY carvedilol 3.125 mg tablet 1.56 mg PO BID Referrals / Follow Up: Kamar Grimes MD [Primary Care Provider, Family Practice] - Within 2 Weeks Keya Basilio MD [Med Staff - Consulting, Nephrology] - Within 2 Weeks Referral Note: For hyponatremia. Disposition Disposition (needs filled in before D/C Order can be placed): Assisted Facility
[2025-04-23] MEDS: Heparin Injection (Vial) 5,000 UNIT/ML VIAL 5000 UNIT SC (11:31)
[2025-04-23] MEDS: Lactobacillis Acidophilus 1 CAP PO (11:32)
[2025-04-23] MEDS: buPROPion (XL) 150 MG TABLET.XL PO (11:32)
--- NOTE | 2025-04-23 11:50 | CASEMGMT ---
Discharge Planning [place] DNR for sent via [facility] as requested. Comfort Harvey DC Planning Asst.
--- NOTE | 2025-04-23 14:13 | CASEMGMT ---
Discharge Planning Requested hospitalist note sent via [facility] to [facility]. Comfort Harvey DC Planning Asst.
--- NOTE | 2025-04-23 15:28 | CASEMGMT ---
Social Work SW updated the patient that we are still waiting for the insurance to approval her going to [facility]. KOBE Diamond
--- NOTE | 2025-04-23 16:28 | CASEMGMT ---
[facility] has obtained auth to admit. SW aware. Comfort Harvey DC Planning Asst.
[2025-04-23 16:45] VITALS: BP 132/80; PULSE 96; RESP 18; TEMP 36.8; O2SAT 98
--- NOTE | 2025-04-23 16:52 | CASEMGMT ---
Social Work Patient received precert today to DC to [facility] for skilled rehab. SW informed the patient she was approved and will DC today. SW also informed the physician and nurse. SW attempted to call the granddaughter Chilo but was unable to leave a message. Patient will be transported by physicians with transport. PASSR has been completed. KOBE Diamond
--- NOTE | 2025-04-23 17:08 | PCM.DC.SUM ---
Providers Date of Admission: 04/18/25 Date of Discharge: 04/23/25 Primary Care Physician: Dr. Kamar Grimes MD Consultations 04/18/25 22:05 Consult: Nephrology Routine Consulting Provider: Keya Basilio Reason for Consult: worsening hyponatremia, severe hypochloremia, ELVIA EMERGENT Consult: No MD Notified: Yes Date Notified: 04/19/25 Time Notified: 06:47 Method of Notification: Answering Service 04/19/25 14:46 Consult: Payroll Benefits Clerk / Pulmonary Medicine Routine Consulting Provider: Intensivists/Pulmonary Med Reason for Consult: hypotension, dizzy EMERGENT Consult: No MD Notified: Yes Date Notified: 04/19/25 Time Notified: 14:44 Method of Notification: Answering Service Reason For Visit: HYPONATREMIA, FALLS Diagnosis Discharge Diagnosis (1) Hyponatremia: Status: Acute Code(s): E87.1 - Hypo-osmolality and hyponatremia Plan Patient is a 75-year-old female who presented to [facility] ED on 04/18/2025 with worsening hyponatremia and weakness with falls at home. 1. Hyponatremia probably due to diuretic which she had for 2 weeks: ? Admit under inpatient status to PCU. Nephrology consulted. Baseline sodium around 140; remained around 140 during recent complicated hospitalization from 03/18-03/26. Dropped significantly to sodium 128 on 04/09. Was instructed to discontinue home Lasix on 04/09 but continued until 04/15. Repeat sodium 125 on 04/16 and has continued to worsen to sodium 121 on 04/18. Severe hyperchloremia with chloride level 71-74 on recent labs. Patient was also on stress dose steroid for 2 days during recent hospitalization. She was recently discharged on 03/24/2025 after management for undifferentiated shock, acute hypoxic and hypercarbic respiratory failure which required ventilator. 04/19: Repeat sodium was 123. Improved 3 mEq. Angle Roll Operator is consulted. Calculated serum iron 267. Measured serum iron 310. Osmolar gap 43. Unclear etiology. The usual differential diagnosis of increased osmolar gap are methanol, ketoacidosis, lactic acidosis, ethylene glycol, propylene glycol, isopropanol. Repeat the serum osmolarity and osmolar gap. VBG ordered. 04/20: VBG 7.48/mixed pCO2 44, PaO2 133/bicarb 33/34. Bicarb and BMP was also 33.7. Anion gap 9. Sodium is still low 125 x 2. CPK 25. Lactic acid 1.3. Serum osmolality 279 which seems more appropriate than earlier reported 310. Calculated on repeat BMP 04/19 271, osmolar gap 8.0 which is in normal range.UA negative, hCG 1.015, protein 30. Angle Roll Operator on board 04/21: Serum sodium improved 127 today. K4.2. Bicarb of 37.5. Anion gap 5. Osmolar gap was normal as mentioned above. 04/22 was seen by local company hazmat driver. Sodium and chloride at baseline. Sodium 130 4K4.7. Chloride 88. Wants to go to TCU 04/23: Sodium returned normal 134. Patient was on indapamide, naproxen and spironolactone 50 mg daily that is discontinued. Follow-up nephrology in 2 weeks to see whether low-dose spironolactone can be resumed. Naproxen dose decreased to 220 mg as needed. Serum potassium is 4.7. 2. ELVIA with mild hyperkalemia, severe non-anion gap metabolic acidosis, severe hypochloremia ? Nephrology consulted as above. Creatinine 1.30, potassium 5.4 on admit. Baseline creatinine around 0.7-0.8. Bicarb 42. Chloride level 71-74 on recent labs as above. Notably creatinine was 1.6-1.9 on recent labs and has improved to 1.30 with discontinuing home Lasix and losartan. Suspect prerenal etiology due to overdiuresis. 04/19: Continue holding Lasix, losartan, indapamide and spironolactone. Severe NAGMA is presumed secondary to chronic respiratory failure as below. 04/20: Creatinine 1.31. BUN 39, BUN/creatinine ratio 29.4 still high 04/22: BUN/creatinine 28/1.12. 3. 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 Patient with recent complicated hospitalization and required intubation for combined respiratory failure from 03/18-03/20. Was discharged home on 2 L nasal cannula at rest and 3 L with exertion. Has suspected NEEL and recommendation was for outpatient workup for this which has not been completed yet. Stable on 2 L nasal cannula at rest in the ED. Monitor. Continue home albuterol inhaler as needed. 04/20: Rib chest x-ray reviewed shows mild pulmonary vascular congestion and bibasilar atelectasis but no obvious shortness of breath. Continue incentive spirometry and PEP for 1 week 04/22: Patient on 2 L of baseline oxygen. Incentive spirometry advised 4. Chronic HFpEF, hypertension ? Echo during recent hospitalization on 03/19 showed EF 75%, moderate concentric LV hypertrophy, no other concerning findings. Mildly hypertensive to the 140s systolic in the ED. Holding home Lasix, losartan, indapamide and spironolactone as above. Okay to continue home Coreg. 5. Acute on chronic debility with recent falls ? PT/OT/case management consulted. Patient lives at home alone. She was able to be discharged home with home health care after recent prolonged hospitalization. Has had worsening functional status with small falls over the past week or so per family. Appreciate therapy recommendations. 6. Anxiety, depression, insomnia, restless leg syndrome, neuropathy ? Continue home bupropion, duloxetine, gabapentin, pramipexole, mirtazapine and melatonin. 7. Class II obesity ? BMI 36 on admit. Complicates hospital course and care. 8. 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 No evidence of infection. Patient on Dr. Twice daily and continued. Patient also denied prior history of DVT but Tru Trinh wanted venous duplex of the lower extremities. Venous duplex ordered DVT prophylaxis: Heparin subcu CODE STATUS: DNR CCA, okay to intubate Discharge medication reconciliation done. Discharge follow-up instructions completed. Discharge process discussed with the patient and all questions were answered to patient's satisfaction. Follow with PCP in 1 to 2 weeks Total time spent, exact 35 minutes on discharge meds reconciliation, examination, coordination of care with nurses and ancillary staff, review of imaging and blood test and discussion with the patient on follow-up instructions. Microbiology Past 72 Hours 04/19/25 15:10 Blood Culture (Wb) #2 - Right Hand Blood Culture - Preliminary No growth in 48 hours. 04/19/25 15:05 Blood Culture (Wb) - Anticubital Right Blood Culture - Preliminary No growth in 48 hours. 04/20/25 09:35 Urine, Clean Catch Urine Culture - Final Mixed Gram Pos & Gram Neg Org 04/20/25 09:35 Urine, Clean Catch Legionella Antigen - Final 04/20/25 09:35 Urine, Clean Catch Streptococcus pneumoniae Antigen (M - Final 04/19/25 16:10 Nasal Secretion MRSA (PCR) - Final 04/19/25 16:10 Mucosa - Nose SARS-CoV-2, Influenza & RSV (PCR) - Final Laboratory Results 04/22/25 05:20: WBC 6.2, RBC 4.21, Hgb 12.3, Hct 38.2, MCV 90.7, MCH 29.2, MCHC 32.2, RDW Std Deviation 47.8 H, RDW Coeff of Terry 14.6, Plt Count 115 L, MPV 10.6, Immature Gran % (Auto) 1.800 H, Neut % (Auto) 66.8, Lymph % (Auto) 18.2 L, Brown % (Auto) 8.7, Eos % (Auto) 3.7, Baso % (Auto) 0.8, Absolute Neuts (auto) 4.2, Absolute Lymphs (auto) 1.13, Nucleated RBC % 0, Sodium 134, Potassium 4.7, Chloride 88 L, Carbon Dioxide 40.0 H, Anion Gap 6, BUN 28 H, Creatinine 1.12, Estim Creat Clear Calc 54.29, Est GFR (MDRD) Non-Af 51 L, BUN/Creatinine Ratio 25.4 H, Glucose 102 H, Calcium 9.7 Medications at Discharge Home Medications losartan 50 mg tablet 50 mg PO BID BP 09/19/14 melatonin 5 mg tablet 10 mg PO QHS INSOMNIA 09/19/14 bupropion HCl 300 mg 24 hr tablet, extended release 150 mg PO DAILY DEPRESSION 06/11/20 gabapentin 600 mg tablet 600 mg PO QHS SLEEP 06/11/20 mirtazapine 15 mg tablet 15 mg PO QHS INSOMNIA 06/24/20 duloxetine 30 mg capsule,delayed release (Cymbalta) 30 mg PO DAILY DEPRESSION 09/11/24 aspirin 81 mg chewable tablet 81 mg PO BID blood thinner #0 tabs 09/17/24 loperamide 2 mg capsule 2 mg PO Q2H PRN PRN DIARRHEA #0 caps 09/17/24 albuterol sulfate 90 mcg/actuation aerosol inhaler 2 inh inhalation Q4H PRN shortness of breath or wheezing 03/18/25 doxycycline hyclate 100 mg capsule 100 mg PO BID abx 03/18/25 potassium citrate 10 mEq (1,080 mg) tablet,extended release 10 meq PO DAILY 03/18/25 pramipexole 1 mg tablet 1 mg PO QHS restless leg 03/18/25 spironolactone 50 mg tablet 50 mg PO DAILY diuretic 03/18/25 Held on 04/23/25. Instructions: Hold it. Follow-up with nephrology before resumption. lactobacillus combination no.9 4 billion cell capsule (Adult 50 Plus Probiotic) 4,000 mmu cells PO QDAY GI health 04/16/25 ondansetron HCl 4 mg tablet 4 mg PO Q8 PRN nausea and vomiting 04/16/25 pramipexole 0.5 mg tablet 0.5 mg PO DINNER RLS 04/16/25 OXYGEN - Supplemental ([facility] INFORMATIONAL USE ONLY) hypoxia 04/21/25 carvedilol 3.125 mg tablet 3.125 mg PO BID #0 tabs 04/23/25 naproxen sodium 220 mg tablet 220 mg PO DAILY PRN pain 30 days #0 tabs 04/23/25 sennosides 8.6 mg-docusate sodium 50 mg tablet (Stimulant Laxative Plus) 2 tab PO BID #0 tabs 04/23/25 Physical Exam Narrative Seen and examined Soft/liquid bowel movement controlled improved on loperamide Feels weak. Continue doxycycline left shoulder infection by Dr. Andrade. Serum sodium is normal. Physical exam General: Awake, alert oriented x3, Cooperative HEENT: Atraumatic, PERRLA, EOMI, Normocephalic. Oral: No Gingival or Mucosal Lesions/ Ulcerations Neck: Supple, No JVD, Negative Carotid Bruits Chest wall/Lungs: Air entry diminished in bilateral lung bases. No crepitation Cardiovascular: Low BP. No M/G/R Abdomen: Bowel Sounds Present, Soft, Non Tender, Non-Distended : No dysuria. No renal angle tenderness. No suprapubic tenderness. Extremities: No edema, Capillary Refill Less than 3 Seconds Skin: Bruise on the right knee Musculoskeletal: Weakness of lower extremities, 4+/5 at knees and hip joints. Left shoulder prosthetic joint. No Tenderness to Palpation of Joints or Extremities Neurological: Cranial nerves II-XII grossly intact, DTR 2+/4. No acute focal neurological deficit. Psych/Mental Status: Flat affect Weight / BMI Weight Weight: 236 lb 1.841 oz Body Mass Index (BMI) 36.9 ABG / Lab / Microbiology Data 04/22/25 05:20 04/22/25 05:20 Microbiology: Microbiology 04/19/25 15:10 Blood Culture (Wb) #2 - Right Hand Blood Culture - Preliminary No growth in 48 hours. 04/19/25 15:05 Blood Culture (Wb) - Anticubital Right Blood Culture - Preliminary No growth in 48 hours. 04/20/25 09:35 Urine, Clean Catch Urine Culture - Final Mixed Gram Pos & Gram Neg Org 04/20/25 09:35 Urine, Clean Catch Legionella Antigen - Final 04/20/25 09:35 Urine, Clean Catch Streptococcus pneumoniae Antigen (M - Final 04/19/25 16:10 Nasal Secretion MRSA (PCR) - Final 04/19/25 16:10 Mucosa - Nose SARS-CoV-2, Influenza & RSV (PCR) - Final D/C Instructions DC O2, CPAP, BIPAP Needs Home O2 Discharge instructions: No Meaningful Use Info Meaningful Use Meaningful Use Diagnoses (Choose all that apply): None applicable Discharge Plan Admission Admit Date/Time: 04/18/25 17:23 Attending Provider: Garfield Pierson Primary Care Provider: Kamar Grimes Consulting Providers: Jermaine Simms; Wally Waddell; Garrick Staples; Murtaza Hunter; Antwan Gardner; Abdirashid Smith; Gemini Briceño; Reginaldo Fatima; Rhonda Arceo; Alden Arcos; Rosalind Key; Jose Angel Handley; Petros Akbar; Julissa Lawrence; Jones Galindo; Bennett Peñaloza; Lamin Campos; Zakia Love; Sarah Hicks; Al Angel; Shaila Lai; Nayely Givens; Jamie Sawant; Brenna Young; Ruma Barnes; Ritu Felipe; Mari Fallon; Brenna Pierce; Luke Rojas; Travis Daley; Butch Ospina; Elva Mixon; John Shepard; Artie,Angel; Alina Garcia; Roopa Sands; Odilia Lockwood; Adarsh Salcido; Hermann Can; Gage Jenkins; Celestino Gallagher; Tacos Hollins; John Quinn; Keya Basilio Discharge Orders/Prescriptions Prescriptions: New sennosides-docusate sodium [Stimulant Laxative Plus] 8.6-50 mg Tablet 2 tab PO BID Qty: 0 0RF carvedilol 3.125 mg Tablet 3.125 mg PO BID Qty: 0 0RF Continued ondansetron HCl 4 mg tablet 4 mg PO Q8 PRN (Reason: nausea and vomiting) Adult 50 Plus Probiotic 4 billion cell capsule 4,000 mmu cells PO QDAY Rx Instructions: administer with a meal losartan 50 MG tablet 50 mg PO BID Patient Comments: BLOOD PRESSURE melatonin 5 MG tablet 10 mg PO QHS Patient Comments: SLEEP gabapentin 600 MG tablet 600 mg PO QHS bupropion HCl 300 MG tablet extended release 24 hr 150 mg PO DAILY mirtazapine 15 MG tablet 15 mg PO QHS potassium citrate 10 mEq (1,080 mg) tablet extended release 10 meq PO DAILY doxycycline hyclate 100 mg capsule 100 mg PO BID pramipexole 1 mg tablet 1 mg PO QHS albuterol sulfate 90 mcg/actuation HFA aerosol inhaler 2 inh inhalation Q4H PRN (Reason: shortness of breath or wheezing) duloxetine [Cymbalta] 30 mg capsule,delayed release(DR/EC) 30 mg PO DAILY loperamide 2 mg Capsule 2 mg PO Q2H PRN PRN (Reason: DIARRHEA) Qty: 0 0RF aspirin 81 mg Tablet,Chewable 81 mg PO BID Qty: 0 0RF pramipexole 0.5 mg tablet 0.5 mg PO DINNER OXYGEN - Supplemental ([facility] INFORMATIONAL USE ONLY) Patient Comments: DME: [employer] 2 lpm NC continuous use, per CM note and patient. 3L with excertion Changed naproxen sodium 220 mg tablet 220 mg PO DAILY PRN (Reason: pain) 30 Days Qty: 0 0RF Held spironolactone 50 mg tablet 50 mg PO DAILY Hold Instructions: Hold it. Follow-up with nephrology before resumption. Discontinued indapamide 2.5 mg tablet 2.5 mg PO DAILY carvedilol 3.125 mg tablet 1.56 mg PO BID Referrals / Follow Up: Kamar Grimes MD [Primary Care Provider, Family Practice] - Within 2 Weeks Keya Basilio MD [Med Staff - Consulting, Nephrology] - Within 2 Weeks Referral Note: For hyponatremia. Disposition Disposition (needs filled in before D/C Order can be placed): Alf Facility Charges/Coding Visit Charges Inpatient E&M: 46232 Disch Hosp >30min
== END 2025-04-23 18:52 | DRG 641 ==
LOC: ED 17:29 → PCU 17:49 → ICU 04-19 15:38 → PCU 04-22 11:13 → ICU 04-22 16:51
PROVIDERS: Admitting Provider Hospitalist; Emergency Provider Emergency Medicine; PCP Family Medicine; Visit Provider Internal Medicine
DX: E87.1 Hypo-osmolality and hyponatremia (principal); J96.12 Chronic respiratory failure with hypercapnia; I50.32 Chronic diastolic (congestive) heart failure; N17.9 Acute kidney failure, unspecified; J96.11 Chronic respiratory failure with hypoxia; Z66 Do not resuscitate; E87.20 Acidosis, unspecified; I11.0 Hypertensive heart disease with heart failure; G25.81 Restless legs syndrome; F32.A Depression, unspecified; E66.812 Obesity, class 2; G47.33 Obstructive sleep apnea (adult) (pediatric); G62.9 Polyneuropathy, unspecified; F41.9 Anxiety disorder, unspecified; Z68.36 Body mass index [BMI] 36.0-36.9, adult; G47.00 Insomnia, unspecified; Z87.891 Personal history of nicotine dependence; Z79.899 Other long term (current) drug therapy; Z79.51 Long term (current) use of inhaled steroids; Z79.82 Long term (current) use of aspirin
CPT/HCPCS: 36415; 71045; 80048; 80053; 80061; 80307; 81001; 82533; 82550; 82803; 82962; 83605; 83930; 83935; 84300; 85025; 85027; 87040; 87086; 87088; 87449; 87631; 87641; 93970; 94668; 97162; 97166; 97530; 97535; 97802; 99285; A4216

== ENCOUNTER → 2025-05-19 | Outpatient (CLI) | payer MEDICARE, SELFPAY ==
--- NOTE | 2025-05-19 09:58 | ECHOL_ITS ---
Reason For Study Reason For Study: PERICARDIAL EFFUSION Procedure This was a limited 2D transthoracic echocardiogram. Exam performed in department. Left Ventricle Normal LV size. The left ventricular ejection fraction is 75 %. No regional wall motion abnormalities noted. Right Ventricle Normal RV size. Normal systolic function. Atria Normal left atrium. Normal right atrium. Mitral Valve Normal mitral valve. Tricuspid Valve Normal tricuspid valve. Mild (1+) tricuspid valve insufficiency. Pulmonary artery systolic pressure is 36 mmHg. Aortic Valve Trisinus/trileaflet aortic valve. Pulmonic Valve Normal pulmonic valve. Great Vessels Normal aortic root. The pulmonary artery is normal size. Inferior vena cava collapse with respiration. Pericardium/Pleural No pericardial effusion. MMode/2D Measurements & Calculations LVIDd: 4.9 cm IVSd: 0.90 cm LAV(MOD- bp): 64.4 ml LVPWd: 1.0 cm LAV(MOD- bp) Indexed: 29.7 ml/m2 LAV(MOD- sp2): 49.8 ml LAV(MOD- sp4): 64.4 ml SV(MOD- sp4): 46.3 ml LVAd ap4: 23.4 cm2 LVAd ap2: 21.2 cm2 LVLd ap4: 7.2 cm LVLd ap2: 7.0 cm SI(MOD- sp4): 21.4 ml/m2 EDV(MOD-sp4): 63.4 ml EDV(MOD-sp2): 54.9 ml EDV(sp4-el): 65.0 ml EDV(sp2-el): 54.4 ml LVAs ap4: 10.3 cm2 LVAs ap2: 8.6 cm2 LVLs ap4: 5.7 cm LVLs ap2: 5.1 cm ESV(MOD-sp4): 17.1 ml ESV(MOD-sp2): 13.0 ml ESV(sp4-el): 15.8 ml ESV(sp2-el): 12.5 ml EF(MOD-sp4): 73.1 % EF(MOD-sp2): 76.3 % EF(sp4-el): 75.7 % SV(MOD-sp2): 41.9 ml SV(sp4-el): 49.2 ml LA A4 area: 22.7 cm2 SI(MOD-sp2): 19.3 ml/m2 RA A4 area: 13.9 cm2 Doppler Measurements & Calculations TR max natacha: 290.0 cm/sec TR max P.6 mmHg ECHO/Echo, Limited Study Interpretation Summary Normal LV size. The left ventricular ejection fraction is 75 %. No pericardial effusion. Structurally normal valves. Ordering Physician: Mike Reddy Referring Physician: Kamar Grimes Performed By: Jermaine Sharma RDCS
== END | disposition home or self-care (01) ==
LOC: CVS 09:57
PROVIDERS: PCP Family Medicine; Referring Provider Internal Medicine Cardiovascular Disease; Visit Provider Internal Medicine Cardiovascular Disease
DX: I31.39 Other pericardial effusion (noninflammatory) (principal)
CPT/HCPCS: 93308

== ENCOUNTER → 2025-05-22 | Outpatient (REF) | payer OTHER, MEDICAID, SELFPAY ==
[2025-05-22 10:20] LABS: Hematocrit 37.8 % (37-47); Hemoglobin 11.6 g/dL (12.0-15.0); Mean Corp Hgb Conc 30.7 g/dL (32-36); Mean Corpuscular Volume 99.0 fL (81-99); Mean Platelet Vol. 10.7 fl (6.2-12.0); Platelet Count 188 K/mm3 (150-450); RBC Distribution Width CV 17.0 % (11.6-14.6); RBC Distribution Width SD 61.9 fl (35.1-43.9); Red Blood Count 3.82 M/mm3 (4.2-5.4); White Blood Count 6.2 K/mm3 (4.4-11.0)
[2025-05-22 10:38] LABS: Anion Gap 9 (5-15); BUN 32 mg/dL (4-19); BUN/Creat Ratio 24.9 RATIO (10-20); Calcium,Total 9.1 mg/dL (7.6-11.0); Carbon Dioxide 32.8 mmol/L (21.0-32.0); Chloride 96 mmol/L (98-108); Glucose 122 mg/dL (70-99); Potassium 4.7 mmol/L (3.3-5.1)
== END ==
LOC: OLS.SW 06:15
PROVIDERS: PCP Family Medicine; Visit Provider Internal Medicine
DX: D64.9 Anemia, unspecified (principal); E87.8 Other disorders of electrolyte and fluid balance, not elsewhere classified
CPT/HCPCS: 36415; 80048; 85027

== ENCOUNTER → 2025-05-28 05:00 | Outpatient (REF) | payer MEDICARE, MEDICAID, SELFPAY ==
--- OUTSIDE RECORDS SUMMARY | 2025-05-28 04:00 | XMS RPT_ITS | CCD ---
Author Organization [facility] Care Team Providers Care Rehab Physician Name Role Phone Kamar Grimes Primary Care Provider Jh Ferraro (Hist) Primary Care Provider GREGG STEVENS PAC Attending Unavailable GREGG STEVENS Primary Care Unavailable GREGG STEVENS PAC Admitting Unavailable KAMAR GRIMES Consulting Unavailable PROVIDER, UNKNOWN Consulting Unavailable Dr. Kamar Grimes MD Primary Care Provider Elayne COTTER, Dr. Toure Attending Provider Dr. Fahad Cavanaugh MD Referring Provider Dr. Fahad Cavanaugh MD Admit Provider Dr. Fahad Cavanaugh MD Other Provider Dr. Jermaine Simms DO Other Provider Dr. Luke Montgomery MD Other Provider Dr. Abdirashid Garcia DO Attending Provider Sigifredo Lee MD, Dr. Mock Attending Provider Dr. Emili Lee MD Other Provider Dr. Fahad Cavanaugh MD Attending Provider Dr. Jamie Jiang DO Other Provider Dr. Sixto Andrade MD Other Provider Dr. Jamie Jiang DO Attending Provider PHYSICIAN, NONE Attending Unavailable KAMAR GRIMES MD Primary Care Unavailable Myron COTTER, Dr. Rodrigo Winters Admit Provider Myron COTTER, Dr. Rodrigo Winters Attending Provider Myron COTTER, Dr. Rodrigo Winters Referring Provider Cornelio COTTER, Dr. Galvin Primary Care Provider Cornelio COTTER, Dr. Galvin Attending Provider Cornelio COTTER, Dr. Galvin Referring Provider Martin COTTER, Dr. Concepcion Attending Provider Cam COTTER, Dr. Albarran Emergency Provider Jesus COTTER, Dr. Mock Admit Provider Jesus COTTER, Dr. Mock Attending Provider Cornelio COTTER, Dr. Galvin Primary Care Physician Cornelio COTTER, Dr. Galvin Attending Physician Martin COTTER, Dr. Concepcion Attending Physician Cam COTTER, Dr. Albarran Emergency Department Physician Jesus COTTER, Dr. Mock Admitting Physician Jesus COTTER, Dr. Mock Attending Physician Nadira COTTER, Dr. Lo Nurse Practitioner [phone] Bel COTTER, Dr. Mccauley Nurse Practitioner [phone] Dale COTTER, Dr. Hauser Nurse Practitioner [phone] Jj PIERSON, Dr. Moncada Nurse Practitioner Sarah COTTER, Dr. Abdirashid Billy Nurse Practitioner [phone] Akua COTTER, Dr. Hair Nurse Practitioner Josselyn COTTER, Dr. Ruano Nurse Practitioner [phone] Yesi COTTER, Dr. Boyer Nurse Practitioner Ender COTTER, Dr. Walter Nurse Practitioner [phone] Raffy COTTER, Dr. Morrell Nurse Practitioner [phone] Andres COTTER, Dr. Kimble Nurse Practitioner [phone] Kurt COTTER, Dr. Smith Nurse Practitioner Jeanne COTTER, Dr. Melendez Nurse Practitioner Unavail velasquez Barnes MD, Dr. Hendrix Nurse Practitioner Thuy COTTER, Dr. Robles Nurse Practitioner Bhavesh COTTER, Dr. Rae Nurse Practitioner Devyn COTTER, Dr. Lopez Nurse Practitioner Artie PIERSON, Dr. Ortiz Nurse Practitioner Radha COTTER, Dr. Fuller Nurse Practitioner Wicho COTTER, Dr. Blas Nurse Practitioner Pamella PIERSON, Dr. Mccrary Nurse Practitioner [phone] Jalen COTTER, Dr. Cuello Nurse Practitioner Donita diya Gallagher MD, Dr. Tirado Nurse Practitioner [phone] Gurvinder COTTER, Dr. Balderrama Nurse Practitioner Kai COTTER, Dr. Lopez Nurse Practitioner Servando CUSTOM SEAMSTRESS-CJodi Nurse Practitioner April CUSTOM SEAMSTRESS-CSahara Nurse Practitioner Dr. Kamar Grimes MD Primary Care Physician Dr. Kamar Grimes MD Attending Physician Dr. Kamar Grimes MD Referring Provider [phone] Dr. Carlene Salazar MD Attending Physician Dr. Deion Levy MD Emergency Department Physician Jesus COTTER, Dr. Mock Admitting Physician Jesus COTTER, Dr. Mock Nurse Practitioner Lupe COTTER, Dr. Ott Nurse Practitioner Nadira COTTER, Dr. Lo Nurse Practitioner [phone] Bel COTTER, Dr. Mccauley Nurse Practitioner [phone] Dale COTTER, Dr. Hauser Nurse Practitioner [phone] Jj PIERSON, Dr. Moncada Nurse Practitioner Sarah COTTER, Dr. Abdirashid Billy Nurse Practitioner Akua COTTER, Dr. Hair Nurse Practitioner Josselyn COTTER, Dr. Ruano Nurse Practitioner [phone] Yesi COTTER, Dr. Boyer Nurse Practitioner Ender COTTER, Dr. Walter Nurse Practitioner [phone] Raffy COTTER, Dr. Morrell Nurse Practitioner [phone] Andres COTTER, Dr. Kimble Nurse Practitioner [phone] Kurt COTTER, Dr. mSith Nurse Practitioner [phone] Jeanne COTTER, Dr. Melendez Nurse Practitioner Unavail [facility] Cameron COTTER, Dr. Hendrix Nurse Practitioner [phone] Thuy COTTER, Dr. Robles Nurse Practitioner Bhavesh COTTER, Dr. Rae Nurse Practitioner Devyn COTTER, Dr. Lopez Nurse Practitioner [phone] Artie PIERSON, Dr. Ortiz Nurse Practitioner Radha COTTER, Dr. Fuller Nurse Practitioner Wicho COTTER, Dr. Blas Nurse Practitioner Pamella PIERSON, Dr. Mccrary Nurse Practitioner [phone] Jalen COTTER, Dr. Cuello Nurse Practitioner Donita diya Gallagher MD, Dr. Tirado Nurse Practitioner [phone] Gurvinder COTTER, Dr. Balderrama Nurse Practitioner Kai COTTER, Dr. Lopez Nurse Practitioner Servando CUSTOM SEAMSTRESS-C, Jodi Nurse Practitioner April CUSTOM SEAMSTRESS-C, Sahara Mosher Nurse Practitioner David COTTER, Dr. Otilia Kirby Nurse Practitioner Robby PIERSON, Dr. Acosta Attending Physician Caio COTTER, Dr. Hughes Attending Physician Elroy RASCON-CTayler Referring Provider Jj PIERSNO, Dr. Moncada Attending Physician David COTTER, Dr. Otilia Kirby Attending Physician Caio COTTER, Dr. Hughes Nurse Practitioner Robby PIERSON, Dr. Acosta Nurse Practitioner Jesus COTTER, Dr. Mock Referring Provider David COTTER, Dr. Otilia Kirby Referring Provider Maureen COTTER, Dr. Mckeon Attending Physician Mendez PIERSON, Dr. Dean Admitting Physician Mendez PIERSON, Dr. Dean Nurse Practitioner Dangelo COTTER, Dr. Merrill Attending Physician Wartrace , Dr. Singletary Nurse Practitioner Unavailab tan Arceo MD, Dr. Ellis Nurse Practitioner Un adithya Lawrence MD, Dr. Julissa Robles Nurse Practitioner Xni Galindo MD, Dr. Goldman Nurse Practitioner Daniel Peñaloza MD, Dr. Bennett Mosher Nurse Practitioner Xin Love MD, Dr. Koehler Nurse Practitioner Sigifredo Lai MD, Dr. Linton Nurse Practitioner Donitava moe Givens DO, Dr. Adler Nurse Practitioner Daniel Sawant MD, Dr. Ayala Nurse Practitioner Concepcion Young MD, Dr. Ceja Nurse Practitioner Donitava moe Felipe MD, Dr. Ritu Guo Nurse Practitioner U greyson Fallon DO, Dr. Guerra Nurse Practitioner Arpit Pierce MD, Dr. Ceja Nurse Practitioner Xin Rojas DO, Dr. Butler Nurse Practitioner Sigifredo Mixon MD, Dr. Elva Mosher Nurse Practit daron Lockwood MD, Dr. Hartley Nurse Practitioner Concepcion Salcido MD, Dr. Altamirano Nurse Practitioner Unavailshanon Jenkins MD, Dr. Almonte Nurse Practitioner Unavailab tan Basilio MD, Dr. Laura Nurse Practitioner Dangelo COTTER, Dr. Merrill Nurse Practitioner Woo COTTER, Dr. Herndon Attending Physician Unavail able Grimes, Kamar Attending Unavailable Grimes, Kamar Primary Care Unavailable Grimes, Kamar Attending Unavailable Grimes, Kamar Referring Unavailable Grimes, Kamar Primary Care Unavailable Mike Reddy Attending Unavailable Grimes, Kamar Referring Unavailable Grimes, Kamar Primary Care Unavailable Grimes, Kamar Attending Unavailable Grimes, Kamar Primary Care Unavailable Grimes, Kamar Referring Unavailable Katrina Yates Attending Unavailable Grimes, Kamar Primary Care Unavailable Emili Lee Admitting Unavailable Emili Lee Consulting Unavailable Karla Bustamante Attending Unavailable Grimes, Kamar Primary Care Unavailable Sixto Andrade Consulting Unavailable Wally Waddell Consulting Unavailable Garrick Staples Consulting Unavailable Murtaza Hunetr Consulting Unavailable Antwan Gardner Consulting Unavailable Abdirashid Smith Consulting Unavailable Reginaldo Fatima Consulting Unavailable Alden Arcos Consulting Unavailable Rosalind Key Consulting Unavailab Jose Angel Marshall Consulting Unavailable Petros Akbar Consulting Unavailable Lamin Campos Consulting Unavailable Sarah Hicks Consulting Unavailable Al Angel Consulting Unavailable Ruma Barnes Consulting Unavailable Travis Daley Consulting Unavailable Butch Ospina Consulting Unavailable John Shepard Consulting Unavailable Angel Alva Consulting Unavailable Alina Garcia Consulting Unavailable Roopa Sands Consulting Unavailable Hermann Can Consulting Unavailable Cuate Rao Consulting Unavailable Celestino Gallagher Consulting Unavailable Tacos Hollins Consulting UnavailJohn Kline Consulting Unavailable Servando CUSTOM SEAMSTRESS, Jodi Consulting Unavailable Sahara Chen Consulting Unavailable Otilia Hernandez Consulting Unavailable Jermaine Simms Consulting Unavailable Jermaine Simms Admitting Unavailable Garfield Pierson Attending Unavailable Cornelio, Kamar Primary Care Unavailable Wally Waddell Consulting Unavailable Bel, Garrick Consulting Unavailable Murtaza uHnter Consulting Unavailable Antwan Gardner Consulting Unavailable Abdirashid Smith Consulting Unavailable Gemini Briceño Consulting Unavailable Reginaldo Fatima Consulting Unavailable Rhonda Arceo Consulting Unavailable Josselyn, Alden Consulting Unavailable Nikkitekhoa, Rosalind Consulting Unavailab le Dand, Jose Angel Consulting Unavailable Petros Akbar Consulting Unavailable Julissa Lawrence Consulting Unavailable Jones Galindo Consulting UnavailBennett Miller Consulting Unavailable Lamin Campos Consulting Unavailable Zakia Love Consulting Unavailable Sarah Hicks Consulting Unavailable Aljunluli, Lamia Consulting Unavailable Bedford, Shaila Consulting Unavailable Tosha, Mustafizur Consulting UnavailJamie Pack Consulting Unavailable Hector, Ceja Consulting Unavailable Ruma Barnes Consulting Unavailable Ritu Felipe Consulting Unavailable Mari Fallon Consulting Unavailable StanBrenna sparks Consulting Unavailable Luke Rojas Consulting Unavailable Travis Daley Consulting Unavailable Butch Ospina Consulting Unavailable Elva Mixon Consulting Unav ailable John Shepard Consulting Unavailable Angel Alva Consulting Unavailable Alina Garcia Consulting Unavailable Roopa Sands Consulting Unavailable Odilia Lockwood Consulting Unavailable Adarsh Salcido Consulting Unavailable Hermann Can Consulting Unavailable Gage Jenkins Consulting Unavailable Celestino Gallagher Consulting Unavailable Tacos Hollins Consulting UnavailJohn Kline Consulting Unavailable Keya Basilio Consulting Unavailable Jermaine Simms Admitting Unavailable Garfield Pierson Attending Unavailable Jermaine Simms Consulting Unavailable Kamar Grimes Primary Care Unavailable Wally Waddell Consulting Unavailable Garrick Staples Consulting Unavailable Murtaza Hunter Consulting Unavailable Antwan Gardner Consulting Unavailable Abdirashid Smith Consulting Unavailable Gemini Briceño Consulting Unavailable Reginaldo Fatima Consulting Unavailable Rhonda Arceo Consulting Unavailable Josselyn, Alden Consulting Unavailable Nikkitekhoa, Rosalind Consulting Unavailab le Dand, Jose Angel Consulting Unavailable Petros Akbar Consulting Unavailable Julissa Lawrence Consulting Unavailable Jones Galindo Consulting UnavailBennett Miller Consulting Unavailable Lamin Campos Consulting Unavailable Zakia Love Consulting Unavailable Florida Hicksber Consulting Unavailable Aljunluli, Lamia Consulting Unavailable Bedford, Shaila Consulting Unavailable Tosha, Mustafizur Consulting UnavailJamie Pack Consulting Unavailable Hector, Ceja Consulting Unavailable Cameron, Ruma Consulting Unavailable Ritu Felipe Consulting Unavailable Mari Fallon Consulting Unavailable Brenna Pierce Consulting Unavailable Luke Rojas Consulting Unavailable Thuy, Travis Consulting Unavailable Irukulla, Butch Consulting Unavailable Elva Mixon Consulting Unav ailable Devyn, John Consulting Unavailable Dhesi, Angel Consulting Unavailable Alina Garcia Consulting Unavailable Roopa Sands Consulting Unavailable Odilia Lockwood Consulting Unavailable Adarsh Salcido Consulting Unavailable Pamella Hermann Consulting Unavailable Gage Jenkins Consulting Unavailable Melo Gallagheram Consulting Unavailable Gurvinder, Gianaanthan Consulting UnavailJohn Kline Consulting Unavailable Keya Basilio Consulting Unavailable Garfield Pierson Consulting Unavailable Saul Kearney Attending Unavailable Kamar Grimes Primary Care Unavailable Karla Bustamante Attending Unavailable Emili Lee Consulting Unavailable Emili Lee Admitting Unavailable Kamar Grimes Primary Care Unavailable Sixto Andrade Consulting Unavailable Wally Waddell Consulting Unavailable Garrick Staples Consulting Unavailable Murtaza Hunter Consulting Unavailable Antwan Gardner Consulting Unavailable Abdirashid Smith Consulting Unavailable Reginaldo Fatima Consulting Unavailable Josselyn, Alden Consulting Unavailable Rosalind Key Consulting UnavailJose Angel Lovelace Consulting Unavailable Petros Akbar Consulting Unavailable Lamin Campos Consulting Unavailable Sarah Hicks Consulting Unavailable Al Angel Consulting Unavailable Barnes, Ruma Consulting Unavailable Thuy, Travis Consulting Unavailable Irukulla, Butch Consulting Unavailable Devyn, John Consulting Unavailable Dhesi, Angel Consulting Unavailable Alina Garcia Consulting Unavailable Roopa Sands Consulting Unavailable Pamella Hermann Consulting Unavailable Cuate Rao Consulting Unavailable Elliott, Celestino Consulting Unavailable Gurvinder, Vasanthan Consulting UnavailJohn Kline Consulting Unavailable Servando RASCON, Jodi Consulting Unavailable Sahara Chen Consulting Unavailable Otilia Hernandez Consulting Unavailable Karla Bustamante Consulting Unavailable Kamar Grimes Attending Unavailable Grimes, Kamar Primary Care Unavailable Grimes, Kamar Referring Unavailable Katrina Yates Attending Unavailable Grimes, Kamar Primary Care Unavailable Cornelio, Kamar Attending Unavailable Grimes, Kamar Primary Care Unavailable Grimes, Kamar Referring Unavailable SibiliaSixto V Attending Unavailable Sibilia, Sixto V Referring Unavailable Grimes, Kamar Primary Care Unavailable Grimes, Kamar Primary Care Unavailable Myron, Rodrigo Chi Admitting Unavailable Myron, Rodrigo Chi Attending Unavailable Sixto Andrade Consulting Unavailable Myron, Rodrigo Chi Referring Unavailable Mao, Fahad Referring Unavailable Mao, Fahad Attending Unavailable Mao, Fahad Admitting Unavailable Grimes, Kamar Primary Care Unavailable Emili Lee Consulting Unavailable Deidre, Jamie Consulting Unavailable Sixto Andrade Consulting Unavailable Antwan Gardner Attending Unavailable Wolfgangam, Otilia Mirta Referring Unavailable Caio, Saul Consulting Unavailable Katrina Yates Attending Unavailable Grimes, Kamar Primary Care Unavailable Otilia Hernandeza Attending Unavailable Emili Lee Referring Unavailable Jermaine Simms Consulting Unavailable Mao, Fahad Referring Unavailable Grimes, Kamar Primary Care Unavailable Abdirashid Garcia Attending Unavailable Mao, Fahad Admitting Unavailable Luke Montgomery Consulting Unavailable Mao, Fahad Consulting Unavailable CaioSaurabh burnsril Attending Unavailable Emili Lee Attending Unavailable Grimes, Kamar Primary Care Unavailable Carlene Salazar Attending Unavailable Jermaine Simms Attending Unavailable Grimes, Kamar Primary Care Unavailable Mao, Fahad Admitting Unavailable Mao, Fahad Referring Unavailable Jamie Jiang Attending Unavailable Lee, Emili Consulting Unavailable Deidre, Jamie Consulting Unavailable Sixto Andrade Consulting Unavailable Mao, Fahad Consulting Unavailable Emili Lee Attending Unavailable LeeEmili Consulting Unavailable Emili Lee Attending Unavailable Grimes, Kamar Primary Care Unavailable Mao, Fahad Referring Unavailable Tejal Holly Attending Unavailabl Kamar Ojeda Attending Unavailable Grimes, Kamar Primary Care Unavailable Grimes, Kamar Referring Unavailable Cornelio COTTER, Dr. Galvin Primary Care Physician Cornelio COTTER, Dr. Galvin Attending Physician Dr. Kamar Grimes MD Referring Provider [phone] Dr. Carlene Salazar MD Attending Physician [phone] Cam COTTER, Dr. Albarran Emergency Department Physician Jesus COTTER, Dr. Mock Admitting Physician Jesus COTTER, Dr. Mock Nurse Practitioner Lupe COTTER, Dr. Ott Nurse Practitioner Nadira COTTER, Dr. Lo Nurse Practitioner Bel COTTER, Dr. Mccauley Nurse Practitioner Dale COTTER, Dr. Hauser Nurse Practitioner Jj PIERSON, Dr. Moncada Nurse Practitioner Sarah COTTER, Dr. Abdirashid Billy Nurse Practitioner Akua COTTER, Dr. Hair Nurse Practitioner Josselyn COTTER, Dr. Ruano Nurse Practitioner [phone] Yesi COTTER, Dr. Boyer Nurse Practitioner Ender COTTER, Dr. Walter Nurse Practitioner [phone] Raffy COTTER, Dr. Morrell Nurse Practitioner [phone] Andres COTTER, Dr. Kimble Nurse Practitioner [phone] Kurt COTTER, Dr. Smith Nurse Practitioner [phone] Jeanne COTTER, Dr. Melendez Nurse Practitioner [facility] able Cameron COTTER, Dr. Hendrix Nurse Practitioner [phone] Thuy COTTER, Dr. Robles Nurse Practitioner [phone] Bhavesh COTTER, Dr. Rae Nurse Practitioner Devyn COTTER, Dr. Lopez Nurse Practitioner [phone] Artie PIERSON, Dr. Ortiz Nurse Practitioner Radha COTTER, Dr. Fuller Nurse Practitioner Wicho COTTER, Dr. Blas Nurse Practitioner Pamella PIERSON, Dr. Mccrary Nurse Practitioner [phone] Jalen COTTER, Dr. Cuello Nurse Practitioner Donita diya Gallagher MD, Dr. Tirado Nurse Practitioner Gurvinder COTTER, Dr. Balderrama Nurse Practitioner Kai COTTER, Dr. Lopez Nurse Practitioner [phone] Servando CUSTOM SEAMSTRESS-C, Jodi Nurse Practitioner April CUSTOM SEAMSTRESS-C, Sahara Mosher Nurse Practitioner David COTTER, Dr. Otilia Kirby Nurse Practitioner Robby PIERSON, Dr. Acosta Attending Physician Caio COTTER, Dr. Hughes Attending Physician Elroy CUSTOM SEAMSTRESS-C, Tayler Referring Provider [phone] Jesus COTTER, Dr. Mock Referring Provider Jj PIERSON, Dr. Moncada Attending Physician David COTTER, Dr. Otilia Kirby Attending Physician Caio COTTER, Dr. Hughes Nurse Practitioner David COTTER, Dr. Otilia Kirby Referring Provider Robby PIERSON, Dr. Acosta Nurse Practitioner [phone] Maureen COTTER, Dr. Mckeon Attending Physician Mendez PIERSON, Dr. Dean Admitting Physician Mendez PIERSON, Dr. Dean Nurse Practitioner Dangelo COTTER, Dr. Merrill Attending Physician Keyanna PIERSON, Dr. Singletary Nurse Practitioner Unavailab tan Arceo MD, Dr. Ellis Nurse Practitioner Un adithya Lawrence MD, Dr. Julissa Robles Nurse Practitioner Xin Galindo MD, Dr. Goldman Nurse Practitioner Daniel Peñaloza MD, Dr. Bennett Mosher Nurse Practitioner Xin Love MD, Dr. Koehler Nurse Practitioner Sigifredo Lai MD, Dr. Linton Nurse Practitioner Elisa Givens DO, Dr. Adler Nurse Practitioner Daniel Sawant MD, Dr. Ayala Nurse Practitioner Concepcion Young MD, Dr. Ceja Nurse Practitioner Elisa Felipe MD, Dr. Ritu Guo Nurse Practitioner Devan Fallon DO, Dr. Guerra Nurse Practitioner Arpit Pierce MD, Dr. Ceja Nurse Practitioner Xin Rojas DO, Dr. Butler Nurse Practitioner Sigifredo Mixon MD, Dr. Elva Mosher Nurse Practit daron Lockwood MD, Dr. Hartley Nurse Practitioner Concepcion Salcido MD, Dr. Altamirano Nurse Practitioner Ta Jenkins MD, Dr. Almonte Nurse Practitioner Jarad Tenorio MD, Dr. Laura Nurse Practitioner [phone] Dangelo COTTER, Dr. Merrill Nurse Practitioner [phone] Woo COTTER, Dr. Herndon Attending Physician Unavail velasquez Allergies Allergy Classification Reported Allergen(s) Allergy Type Date of Onset Reaction(s) Facility (19 sources) Penicillins; Translations: [Penicillins] Propensity to adverse reactions 6 Shortness of Breath [facility] Medications Current Medications Medication Drug Class(es) Dates Sig (Normalized) Sig (Original) [id number] 200 actuat albuterol 0.09 mg/actuat metered dose inhaler (7 sources) beta2-Adrenergic Agonist Start: 03-18-2025 Start: 03-18-2025 Albuterol Sulf ate 90 mcg/actuation HFA aerosol inhaler Active 2 NMA INHALATION Q4H as needed for shortness of breath or wheezing March 18, 2025 12:00am Complies with drug therapy aspirin 81 mg chewable tablet (20 sources) Platelet Aggregation Inhibitor, Nonsteroidal Anti-inflammatory Drug Start: 09-17-2024 Start: 06-25-2020 End: 09-11-2024 24 hr buPROPion hydrochlorid e 300 mg extended release oral tablet (17 sources) Aminoketone Start: 06-11-2020 Start: 06-11-2020 take 300 mg by mouth once marcia y Bupropion Hcl Active 300 MG PO DAILY June 11, 2020 1:00am carvedilol 3.125 mg oral tablet (13 sources) alpha-Adrenergic Clara, beta-Adrenergic Clara Start: 04-23-2025 Start: 04-23-2025 Start: 04-23-2025 Start: 03-18-2025 End: 04-23-2025 docusate sodium 50 mg / felipe osides, [facility] 8.6 mg oral tablet (20 sources) Start: 04-23-2025 Start: 04-23-2025 Start: 04-23-2025 Start: 09-17-2024 End: 03-18-2025 Start: 09-17-2024 End: 03-18-2025 Sennosides-Docusate Sodium ( Stimulant Laxative Plus) 8.6-50 mg Tablet Discontinued 1 {tbl} PO DAILY 0 0 September 17, 2024 12:00am March 18, 2025 7:50pm stool softener Start: 06-25-2020 End: 09-11-2024 Start: 06-25-2020 End: 09-11-2024 Sennosides-Docusate Sodium 1 TABLET tablet Discontinued 2 {tbl} PO TWICE A DAY 14 June 25, 2020 1:00am September 11, 2024 2:54pm Take until first bowel movement, then as needed Start: 06-25-2020 Sennosides-Doc usate Sodium Active 2 TABLET PO TWICE A DAY June 25, 2020 1:00am Take until first bowel movement, then as needed doxycycline hyclate 100 mg oral capsule (7 sources) Tetracycline-class Drug Start: 03-18-2025 DULoxetine 30 mg delayed release oral capsule (11 sources) Serotonin and Norepinephrine Reuptake Inhibitor Start: 09-11-2024 gabapentin 600 mg oral tablet (17 sources) Anti-epileptic Agent Start: 06-11-2020 Start: 06-11-2020 take 1 tablet by eugene at bedtime Gabapentin 600 MG tablet Active 600 mg PO AT BEDTIME June 11, 2020 1:00am SLEEP Complies with drug therapy loperamide hydrochloride 2 m g oral capsule (11 sources) Opioid Agonist Start: 09-17-2024 losartan potassium 50 mg ora l tablet (17 sources) Angiotensin 2 Receptor Clara Start: 09-19-2014 melatonin 5 mg oral tablet (17 sources) Start: 09-19-2014 Start: 09-19-2014 take 2 tablets by mo ilh at bedtime Melatonin 5 MG tablet Active 10 mg PO AT BEDTIME September 19, 2014 12:00am INSOMNIA Complies with drug therapy Start: 09-19-2014 take 10 mg by mouth at bedtime Melatonin Active 10 MG PO AT BEDTIME September 19, 2014 12:00am mirtazapine 15 mg oral table t (17 sources) Start: 06-24-2020 Start: 06-24-2020 take 1 tablet by eugene th at bedtime Mirtazapine 15 MG tablet Active 15 mg PO AT BEDTIME June 24, 2020 1:00am INSOMNIA Complies with drug therapy naproxen sodium 220 mg oral tablet (20 sources) Nonsteroidal Anti-inflammatory Drug Start: 04-23-2025 Start: 04-23-2025 Start: 04-23-2025 Start: 03-18-2025 End: 04-23-2025 Start: 09-19-2014 End: 10-02-2014 Start: 09-19-2014 End: 10-02-2014 take 2 tablets by mouth twice daily as needed for pain Naproxen Sodium (Aleve) 220 MG tablet Discontinued 440 mg PO TWICE DAILY NEEDED as needed for Pain September 19, 2014 12:00am October 02, 2014 2:48pm ondansetron 4 mg oral tablet (3 sources) Serotonin-3 Receptor Antagonist Start: 04-16-2025 potassium citrate 10 meq ext ended release oral tablet (7 sources) Start: 03-18-2025 pramipexole dihydrochloride 0.5 mg oral tablet (20 sources) Nonergot Dopamine Agonist Start: 03-18-2025 Start: 03-18-2025 take 1 tablet by eugene th at bedtime Pramipexole 1 mg tablet Active 1 mg PO AT BEDTIME March 18, 2025 12:00am restless leg Complies with drug therapy Start: 09-11-2024 take 1 tablet by eugene th at dinner Pramipexole 0.5 mg tablet Active 0.5 mg PO WITH DINNER September 11, 2024 12:00am RLS Complies with drug therapy Start: 04-12-2017 End: 04-16-2025 Start: 04-12-2017 End: 03-18-2025 take 2 tablets by mouth at bedtime Pramipexole (Mirapex) 0.5 MG tablet Discontinued 1 mg PO AT BEDTIME April 12, 2017 12:00am March 18, 2025 7:49pm RLS Start: 04-12-2017 take 1 tablet by eugene th at bedtime Pramipexole (Mirapex) 0.5 MG tablet Active 0.5 MG PO AT BEDTIME April 12, 2017 12:00am spironolactone 50 mg oral ta blet (7 sources) Aldosterone Antagonist Start: 03-18-2025 (9 sources) Start: 04-21-2025 Start: 04-16-2025 Start: 04-16-2025 End: 04-19-2025 Completed/Discontinued Medications Medication Drug Class(es) Dates Sig (Normalized) Sig (Original) acetaminophen 500 mg oral tablet (20 sources) Start: 09-17-2024 End: 03-18-2025 Start: 06-25-2020 End: 09-11-2024 Acetaminophen 500 MG [...] in a 24-hour period. Start: 04-27-2017 End: 09-11-2024 Start: 04-27-2017 End: 06-25-2020 take 1000 mg by mouth every eight hours Acetaminophen Discontinued 1000 MG PO EVERY 8 HOURS 90 April 27, 2017 12:00am June 25, 2020 9:07am acetaminophen 325 mg / HYDRO codone bitartrate 5 mg oral tablet (20 sources) Opioid Agonist Start: 09-19-2014 End: 10-10-2014 Start: 09-19-2014 End: 10-10-2014 Hydrocodone-Acetaminophen 1 TABLET [...] 2014 12:16pm amLODIPine 10 mg oral tablet (11 sources) Dihydropyridine Calcium Channel Clara Start: 09-11-2024 End: 03-18-2025 atorvastatin 20 mg oral tabl et (17 sources) HMG-CoA Reductase Inhibitor Start: 06-11-2020 End: 09-11-2024 Start: 06-11-2020 End: 09-11-2024 take 1 tablet by mouth at bedtime Atorvastatin 20 MG tablet Discontinued 20 mg PO AT BEDTIME June 11, 2020 1:00am September 11, 2024 2:57pm caffeine 200 mg oral tablet (17 sources) Central Nervous System Stimulant, Methylxanthine Start: 09-19-2014 End: 04-27-2017 famotidine 20 mg oral tablet (20 sources) Histamine-2 Receptor Antagonist Start: 09-17-2024 End: 03-18-2025 Start: 06-25-2020 End: 09-11-2024 ibuprofen 400 mg oral tablet (17 sources) Nonsteroidal Anti-inflammatory Drug Start: 09-19-2014 End: 10-02-2014 indapamide 2.5 mg oral tablet (20 sources) Thiazide-like Diuretic Start: 03-18-2025 End: 04-23-2025 Start: 04-12-2017 End: 03-18-2025 metoprolol tartrate 25 mg or al tablet (11 sources) beta-Adrenergic Clara Start: 09-17-2024 End: 03-18-2025 oxyCODONE hydrochloride 5 mg oral tablet (20 sources) Opioid Agonist Start: 09-17-2024 End: 10-01-2024 Start: 06-25-2020 End: 06-29-2020 rifAMPin 300 mg oral capsule (11 sources) Rifamycin Antibacterial Start: 09-16-2024 End: 03-18-2025 simethicone 66.7 mg/ml oral suspension (11 sources) Start: 09-17-2024 End: 03-18-2025 traMADol hydrochloride 50 mg oral tablet (17 sources) Opioid Agonist Start: 06-11-2020 End: 06-25-2020 200 ml vancomycin 5 mg/ml in jection (11 sources) Glycopeptide Antibacterial Start: 09-16-2024 End: 03-18-2025 Problems Active Problems Problem Classification Problem Date Documented Da te Episodic/Chronic Acute and unspecified renal failure (15 sources) Acute renal failure syndrome; Translations: [Acute kidney failure, unspecified] Onset: 03-26-2025 03-18-2025 Episodic Chronic kidney disease (1 source) Chronic kidney disease, stage 2 (mild); Translations: [Chronic kidney disease, stage 2 (mild)] Onset: 03-19-2025 Chronic Complication of device; implant or graft (20 sources) Infection AND/OR inflammatory reaction due to internal prosthetic device, implant AND/OR graft; Translations: [Infection and inflammatory reaction due to other internal joint prosthesis, initial encounter] Onset: 09-18-2024 09-14-2024 Episodic Congestive heart failure; nonhypertensive (1 source) Acute diastolic (congestive) heart failure; Translations: [Acute diastolic (congestive) heart failure] Onset: 04-26-2025 Chronic Essential hypertension (20 sources) Essential hypertension; Translations: [Hypertensive disorder] Onset: 03-09-2006 03-09-2006 Chronic Fluid and electrolyte disorders (20 sources) Dehydration; Translations: [Dehydration] Onset: 04-23-2025 03-18-2025 Episodic Genitourinary symptoms and ill-defined conditions (14 sources) Bacteriuria; Translations: [Bacteriuria] 03-18-2025 Episodic Hemorrhoids (1 source) Internal hemorrhoids; Translations: [Internal hemorrhoids without mention of complication] 06-12-2006 Episodic Malaise and fatigue (18 sources) Asthenia; Translations: [Other malaise] 09-18-2024 Episodic Mood disorders (14 sources) Depressive disorder; Translations: [Depression] 09-13-2024 Chronic Comment on above: ON MED Mood disorders (1 source) Mood disorders; Translations: [Depression, unspecified] Onset: 09-18-2024 Other and ill-defined cerebrovascular disease (13 sources) Intracranial aneurysm; Translations: [Cerebral aneurysm, nonruptured] 03-20-2025 Chronic Other and ill-defined cerebrovascular disease (1 source) Cerebral aneurysm, nonruptured; Translations: [Cerebral aneurysm, nonruptured] Onset: 04-08-2025 Chronic Other circulatory disease (14 sources) Low blood pressure; Translations: [Hypotension, unspecified] 03-18-2025 Episodic Other circulatory disease (1 source) Hypotension, unspecified; Translations: [Hypotension, unspecified] Onset: 04-08-2025 Episodic Other connective tissue disease (13 sources) History of reverse prosthetic total arthroplasty of right shoulder; Translations: [Presence of right artificial shoulder joint] 09-14-2024 Chronic Other connective tissue disease (1 source) Presence of unspecified artificial shoulder joint; Translations: [Presence of unspecified artificial shoulder joint] Onset: 04-08-2025 Chronic Other connective tissue disease (1 source) Presence of left artificial shoulder joint; Translations: [Presence of left artificial shoulder joint] Onset: 09-18-2024 Chronic Other connective tissue disease (1 source) Presence of right artificial shoulder joint; Translations: [Presence of right artificial shoulder joint] Onset: 09-18-2024 Chronic Other gastrointestinal disorders (1 source) Diarrhea; Translations: [Diarrhea] 06-12-2006 Episodic Other hereditary and degenerative nervous system conditions (15 sources) Restless legs; Translations: [Restless legs syndrome] Onset: 01-14-2016 01-14-2016 Chronic Comment on above: ON MED Other hereditary and degenerative nervous system conditions (1 source) Restless legs syndrome; Translations: [Restless legs syndrome] Onset: 09-18-2024 Chronic Other injuries and conditions due to external causes (14 sources) Hypothermia; Translations: [Hypothermia, initial encounter] 03-18-2025 Episodic Other lower respiratory disease (6 sources) Hypoxia; Translations: [Hypoxemia] 04-16-2025 Episodic Other lower respiratory disease (1 source) Shortness of breath; Translations: [Shortness of breath] Onset: 03-23-2025 Episodic Other nervous system disorders (14 sources) Neuropathy; Translations: [Polyneuropathy, unspecified] 09-13-2024 Chronic Other nervous system disorders (3 sources) Unable to walk; Translations: [Difficulty in walking, not elsewhere classified] 04-18-2025 Chronic Other nervous system disorders (1 source) Polyneuropathy, unspecified; Translations: [Polyneuropathy, unspecified] Onset: 09-18-2024 Chronic Other non-traumatic joint disorders (1 source) Pain in left shoulder; Translations: [Pain in left shoulder] Onset: 04-14-2025 Episodic Edita-; endo-; and myocarditis; cardiomyopathy (except that caused by tuberculosis or sexually transmitted disease) (6 sources) Pericardial effusion; Translations: [Pericardial effusion] 04-16-2025 Episodic Pulmonary heart disease (1 source) Other pulmonary embolism without acute cor pulmonale; Translations: [Other pulmonary embolism without acute cor pulmonale] Onset: 04-18-2025 Episodic Residual codes; unclassified (20 sources) Insomnia; Translations: [Insomnia, unspecified] Onset: 01-14-2016 01-14-2016 Episodic Respiratory failure; insufficiency; arrest (adult) (16 sources) Acute on chronic hypoxemic and hypercapnic respiratory failure; Translations: [Acute and chronic respiratory failure with hypoxia] Onset: 04-08-2025 03-18-2025 Chronic Respiratory failure; insufficiency; arrest (adult) (20 sources) Acute respiratory failure; Translations: [Acute respiratory failure with hypoxia] Onset: 04-10-2025 09-18-2024 Episodic Shock (15 sources) Shock; Translations: [Shock, unspecified] Onset: 04-10-2025 03-18-2025 Episodic Spondylosis; intervertebral disc disorders; other back problems (17 sources) Spinal stenosis; Translations: [Spinal stenosis, site unspecified] 06-09-2020 Episodic Unclassified (1 source) Patient encounter status; Translations: [Special screening for malignant neoplasms, colon] Onset: 03-29-2006 03-29-2006 Unclassified (2 sources) In 2 weeks-call for an appointment Unclassified (2 sources) In 2 weeks, call for an appointment Unclassified (1 source) Other pericardial effusion (noninflammatory); Translations: [Other pericardial effusion (noninflammatory)] Onset: 04-16-2025 Past or Other Problems Problem Classification Problem Date Documented Da te Episodic/Chronic Residual codes; unclassified (1 source) Insomnia, unspecified; Translations: [Insomnia, unspecified] Onset: 09-18-2024 Episodic Results Test Name Value Interpretation Reference Range Facility Anion gap in Serum or Plasma Ordered By: Katrina Berkowitz on 05-08-2025 Anion gap [Moles/Vol] 8 mmol/L 11-14 [facility] BUN/creatinine ratioOrdered By: Katrina Berkowitz on 05-08-2025 Urea nitrogen/Creatinine [Mass ratio] 21.3 mg/mg High 04-21 [facility] Basic Metabolic Profile (BMP )on 05-08-2025 BUN/CRE 21.3 RATIO High 04-21 [facility] Comment on above: Order Comment: 211.1 Performed By: #### L 500.2500, L100.0500 ####[facility] [address] [place], [address] GAP 8 Normal 5-15 [facility] Comment on above: Order Comment: 211.1 Performed By: #### L 500.2500, L100.0500 ####[facility] [address] [place], [address] Potassium [Moles/Vol] 5.1 mmol/L Normal 3.3-5.1 [facility] Comment on above: Order Comment: 211.1 Result Comment: Hemo lysis present, Results??could be affected.?? Performed By: #### L 500.2500, L100.0500 ####[facility] [address] [place], [address] Basic Metabolic Profile (BMP )Ordered By: Katrina Berkowitz on 05-08-2025 Calcium [Mass/Vol] 9.5 mg/dL Normal 7.6-11.0 [facility] Comment on above: Order Comment: 211.1 Performed By: #### L 500.2500, L100.0500 ####[facility] [address] [place], [address] Chloride [Moles/Vol] 98 mmol/L Normal 98-108 [facility] Comment on above: Order Comment: 211.1 Performed By: #### L 500.2500, L100.0500 ####[facility] [address] [place], [address] CO2 [Moles/Vol] 34.0 mmol/L High 21.0-32.0 [facility] Comment on above: Order Comment: 211.1 Performed By: #### L 500.2500, L100.0500 ####[facility] [address] [place], [address] Creatinine [Mass/Vol] 0.94 mg/dL Normal 0.70-1.20 [facility] Comment on above: Order Comment: 211.1 Performed By: #### L 500.2500, L100.0500 ####[facility] [address] [place], [address] GFR/1.73 sq M.predicted among non-blacks MDRD (S/P/Bld) [Vol rate/Area] 63 mL/min/{1.73_m2} Normal >60 [facility] Comment on above: Order Comment: 211.1 Result Comment: mL/m in/1.73m2 CKD-EPI Creatinine Equation (2020) Performed By: #### L 500.2500, L100.0500 ####[facility] [address] [place], [address] Glucose [Mass/Vol] 97 mg/dL Normal 70-99 [facility] Comment on above: Order Comment: 211.1 Performed By: #### L 500.2500, L100.0500 ####[facility] [address] [place], [address] Sodium [Moles/Vol] 140 mmol/L Normal 133-145 [facility] Comment on above: Order Comment: 211.1 Performed By: #### L 500.2500, L100.0500 ####[facility] [address] [place], [address] Urea nitrogen [Mass/Vol] 20 mg/dL High 4-19 [facility] Comment on above: Order Comment: 211.1 Performed By: #### L 500.2500, L100.0500 ####[facility] [address] [place], [address] CBC-Complete Blood Cnt No Di ffOrdered By: Katrina Berkowitz on 05-08-2025 Erythrocyte distribution width (RBC) [Ratio] 16.9 % High 11.6-14.6 [facility] Comment on above: Order Comment: 211.1 Performed By: #### L 500.2500, L100.0500 ####[facility] [address] [place], [address] Hematocrit (Bld) [Volume fraction] 36.6 % Low 37-47 [facility] Comment on above: Order Comment: 211.1 Performed By: #### L 500.2500, L100.0500 ####[facility] [address] [place] [address] Hemoglobin (Bld) [Mass/Vol] 11.3 g/dL Low 12.0-15.0 [facility] Comment on above: Order Comment: 211.1 Performed By: #### L 500.2500, L100.0500 ####[facility] [address] [place], [address] MCH (RBC) [Entitic mass] 29.5 pg Normal 27.0-32.0 [facility] Comment on above: Order Comment: .1 Performed By: #### L 500.2500, L100.0500 ####[facility] [address] [place], [address] MCV (RBC) [Entitic vol] 95.6 fL Normal 81-99 [facility] Comment on above: Order Comment: 211.1 Performed By: #### L 500.2500, L100.0500 ####[facility] [address] [place], [address] Platelets (Bld) [#/Vol] 280 10*3/uL Normal 150-450 [facility] Comment on above: Order Comment: 211.1 Performed By: #### L 500.2500, L100.0500 ####[facility] [address] [place], [address] RBC (Bld) [#/Vol] 3.83 10*6/uL Low 4.2-5.4 [facility] Comment on above: Order Comment: 211.1 Performed By: #### L 500.2500, L100.0500 ####[facility] [address] [place], [address] WBC (Bld) [#/Vol] 4.7 10*3/uL Normal 4.4-11.0 [facility] Comment on above: Order Comment: 211.1 Performed By: #### L 500.2500, L100.0500 ####[facility] [address] [place], [address] CBC-Complete Blood Cnt No Di ffon 05-08-2025 MCHC (RBC) [Mass/Vol] 30.9 g/dL Low 32-36 [facility] Comment on above: Order Comment: 211.1 Performed By: #### L 500.2500, L100.0500 ####[facility] [address] [place], [address] Platelet mean volume (Bld) [Entitic vol] 10.0 fL Normal 6.2-12.0 [facility] Comment on above: Order Comment: 211.1 Performed By: #### L 500.2500, L100.0500 ####[facility] [address] [place], [address] RDW SD 58.7 fl High 35.1-43.9 [facility] Comment on above: Order Comment: 211.1 Performed By: #### L 500.2500, L100.0500 ####[facility] [address] [place], [address] Erythrocyte distribution wid th standard deviationOrdered By: Katrina Berkowitz on 05-08-2025 Erythrocyte distribution width (RBC) [Ratio] 58.7 fl High 35.1-43.9 [facility] Potassium measurement (mass/ volume)Ordered By: Katrina Berkowitz on 05-08-2025 Potassium (Unsp spec) [Mass/Vol] 5.1 mmol/L 3.3-5.1 [facility] Anion gap in Serum or Plasma Ordered By: Katrina Berkowitz on 04-29-2025 Anion gap [Moles/Vol] 6 mmol/L 5-15 [facility] BUN/creatinine ratioOrdered By: Katrina Berkowitz on 04-29-2025 Urea nitrogen/Creatinine [Mass ratio] 21.7 mg/mg High 04-21 [facility] Basic Metabolic Profile (BMP )on 04-29-2025 BUN/CRE 21.7 RATIO High 04-21 [facility] Comment on above: Order Comment: . Performed By: #### L 501.9520, L500.2500, L503.0106, L100.0500, L501.5200, L506.1001 ####[facility] [address] [place], [address] Calcium [Mass/Vol] 9.1 mg/dL Normal 7.6-11.0 [facility] Comment on above: Order Comment: . Performed By: #### L 501.9520, L500.2500, L503.0106, L100.0500, L501.5200, L506.1001 ####[facility] [address] [place], [address] Chloride [Moles/Vol] 94 mmol/L Low 98-108 [facility] Comment on above: Order Comment: . Performed By: #### L 501.9520, L500.2500, L503.0106, L100.0500, L501.5200, L506.1001 ####[facility] [address] [place], [address] CO2 [Moles/Vol] 35.9 mmol/L High 21.0-32.0 [facility] Comment on above: Order Comment: . Performed By: #### L 501.9520, L500.2500, L503.0106, L100.0500, L501.5200, L506.1001 ####[facility] [address] [place], [address] Creatinine [Mass/Vol] 0.99 mg/dL Normal 0.70-1.20 [facility] Comment on above: Order Comment: 211. Performed By: #### L 501.9520, L500.2500, L503.0106, L100.0500, L501.5200, L506.1001 ####[facility] [address] [place], [address] GAP 6 Normal 5-15 [facility] Comment on above: Order Comment: . Performed By: #### L 501.9520, L500.2500, L503.0106, L100.0500, L501.5200, L506.1001 ####[facility] [address] [place], [address] GFR/1.73 sq M.predicted among non-blacks MDRD (S/P/Bld) [Vol rate/Area] 59 mL/min/{1.73_m2} Low >60 [facility] Comment on above: Order Comment: Result Comment: mL/m in/1.73m2 CKD-EPI Creatinine Equation (2020) Performed By: #### L 501.9520, L500.2500, L503.0106, L100.0500, L501.5200, L506.1001 ####[facility] [address] [place], [address] Glucose [Mass/Vol] 93 mg/dL Normal 70-99 [facility] Comment on above: Order Comment: . Performed By: #### L 501.9520, L500.2500, L503.0106, L100.0500, L501.5200, L506.1001 ####[facility] [address] [place], [address] Potassium [Moles/Vol] 4.9 mmol/L Normal 3.3-5.1 [facility] Comment on above: Order Comment: . Performed By: #### L 501.9520, L500.2500, L503.0106, L100.0500, L501.5200, L506.1001 ####[facility] [address] [place], [address] Sodium [Moles/Vol] 136 mmol/L Normal 133-145 [facility] Comment on above: Order Comment: 211.1 Performed By: #### L 501.9520, L500.2500, L503.0106, L100.0500, L501.5200, L506.1001 ####[facility] [address] [place], [place], [address] Urea nitrogen [Mass/Vol] 22 mg/dL High 4-19 [facility] Comment on above: Order Comment: 211.1 Performed By: #### L 501.9520, L500.2500, L503.0106, L100.0500, L501.5200, L506.1001 ####[facility] [address] [place], [place], [id number] CBC-Complete Blood Cnt No Di ffon 04-29-2025 Erythrocyte distribution width (RBC) [Ratio] 15.8 % High 11.6-14.6 [facility] Comment on above: Order Comment: 211.1 Performed By: #### L 501.9520, L500.2500, L503.0106, L100.0500, L501.5200, L506.1001 ####[facility] [address] [place], [address] Hematocrit (Bld) [Volume fraction] 34.9 % Low 37-47 [facility] Comment on above: Order Comment: 211.1 Performed By: #### L 501.9520, L500.2500, L503.0106, L100.0500, L501.5200, L506.1001 ####[facility] [address] [place], [address] Hemoglobin (Bld) [Mass/Vol] 10.8 g/dL Low 12.0-15.0 [facility] Comment on above: Order Comment: 211.1 Performed By: #### L 501.9520, L500.2500, L503.0106, L100.0500, L501.5200, L506.1001 ####[facility] [address] [place], [address] MCH (RBC) [Entitic mass] 29.3 pg Normal 27.0-32.0 [facility] Comment on above: Order Comment: .1 Performed By: #### L 501.9520, L500.2500, L503.0106, L100.0500, L501.5200, L506.1001 ####[facility] [address] [place], [address] MCHC (RBC) [Mass/Vol] 30.9 g/dL Low 32-36 [facility] Comment on above: Order Comment: . Performed By: #### L 501.9520, L500.2500, L503.0106, L100.0500, L501.5200, L506.1001 ####[facility] [address] [place], [address] MCV (RBC) [Entitic vol] 94.6 fL Normal 81-99 [facility] Comment on above: Order Comment: . Performed By: #### L 501.9520, L500.2500, L503.0106, L100.0500, L501.5200, L506.1001 ####[facility] [address] [place], [address] Platelet mean volume (Bld) [Entitic vol] 10.4 fL Normal 6.2-12.0 [facility] Comment on above: Order Comment: .1 Performed By: #### L 501.9520, L500.2500, L503.0106, L100.0500, L501.5200, L506.1001 ####[facility] [address] [place], [address] Platelets (Bld) [#/Vol] 144 10*3/uL Low 150-450 [facility] Comment on above: Order Comment: 211.1 Performed By: #### L 501.9520, L500.2500, L503.0106, L100.0500, L501.5200, L506.1001 ####[facility] [address] [place], [address] RBC (Bld) [#/Vol] 3.69 10*6/uL Low 4.2-5.4 [facility] Comment on above: Order Comment: 211.1 Performed By: #### L 501.9520, L500.2500, L503.0106, L100.0500, L501.5200, L506.1001 ####[facility] [address] [place], [address] RDW SD 54.6 fl High 35.1-43.9 [facility] Comment on above: Order Comment: 211.1 Performed By: #### L 501.9520, L500.2500, L503.0106, L100.0500, L501.5200, L506.1001 ####[facility] [address] [place], [address] WBC (Bld) [#/Vol] 5.9 10*3/uL Normal 4.4-11.0 [facility] Comment on above: Order Comment: 211.1 Performed By: #### L 501.9520, L500.2500, L503.0106, L100.0500, L501.5200, L506.1001 ####[facility] [address] [place], [address] Carbon dioxide, total [Moles /volume] in Central venous bloodOrdered By: Katrina Berkowitz on 04-29-2025 CO2 [Moles/Vol] 35.9 mmol/L High 21.0-32.0 [facility] Chloride assayOrdered By: Hermann Berkowitz on 04-29-2025 Chloride [Moles/Vol] 94 mmol/L Low 98-108 [facility] Erythrocyte distribution wid th ratioOrdered By: Katrina Berkowitz on 04-29-2025 Erythrocyte distribution width (RBC) [Ratio] 15.8 % High 11.6-14.6 [facility] Erythrocyte distribution wid th standard deviationOrdered By: Katrina Berkowitz on 04-29-2025 Erythrocyte distribution width (RBC) [Ratio] 54.6 fl High 35.1-43.9 [facility] Glomerular filtration rate ( GFR) estimation/1.73 sq m using serum, plasma, or whole bOrdered By: Katrina Berkowitz on 04-29-2025 GFR/1.73 sq M.predicted among non-blacks MDRD (S/P/Bld) [Vol rate/Area] 59 mL/min/{1.73_m2} Low >60 [facility] Hematocrit Auto (Bld) [Volum e fraction]Ordered By: Katrina Berkowitz on 04-29-2025 Hematocrit (Bld) [Volume fraction] 34.9 % Low 37-47 [facility] Hemoglobin measurementOrdere d By: Katrina Berkowitz on 04-29-2025 Hemoglobin (Bld) [Mass/Vol] 10.8 g/dL Low 12.0-15.0 [facility] MCV (mean corpuscular volume ) determinationOrdered By: Katrina Berkowitz on 04-29-2025 MCV (RBC) [Entitic vol] 94.6 fL 81-99 [facility] Magnesiumon 04-29-2025 Magnesium [Mass/Vol] 1.8 mg/dL Normal 1.5-2.2 [facility] Comment on above: Order Comment: 211.1 Performed By: #### L 501.9520, L500.2500, L503.0106, L100.0500, L501.5200, L506.1001 ####[facility] [address] [place], [address] Magnesium measurement (mass/ volume)Ordered By: Katrina Berkowitz on 04-29-2025 Magnesium (Unsp spec) [Mass/Vol] 1.8 mg/dL 1.5-2.2 [facility] Mean corpuscular hemoglobin (MCH) determinationOrdered By: Katrina Berkowitz on 04-29-2025 MCH (RBC) [Entitic mass] 29.3 pg 27.0-32.0 [facility] Platelet countOrdered By: Hermann Berkowitz on 04-29-2025 Platelets (Bld) [#/Vol] 144 10*3/uL Low 150-450 [facility] Potassium measurement (mass/ volume)Ordered By: Katrina Berkowitz on 04-29-2025 Potassium (Unsp spec) [Mass/Vol] 4.9 mmol/L 3.3-5.1 [facility] RBC Auto (Bld) [#/Vol]Ordere d By: Katrina Berkowitz on 04-29-2025 RBC (Bld) [#/Vol] 3.69 10*6/uL Low 4.2-5.4 [facility] Serum creatinine measurement (mass/volume)Ordered By: Katrina Berkowitz on 04-29-2025 Creatinine [Mass/Vol] 0.99 mg/dL 0.70-1.20 [facility] Serum glucose measurement (m ass/volume)Ordered By: Katrina Berkowitz on 04-29-2025 Glucose [Mass/Vol] 93 mg/dL 70-99 [facility] Serum or plasma calcium lisa urement (mass/volume)Ordered By: Katrina Berkowitz on 04-29-2025 Calcium [Mass/Vol] 9.1 mg/dL 7.6-11.0 [facility] Serum or plasma urea nitroge n measurement (mass/volume)Ordered By: Katrina Berkowitz on 04-29-2025 Urea nitrogen [Mass/Vol] 22 mg/dL High 4-19 [facility] Sodium levelOrdered By: Lilli Berkowitz on 04-29-2025 Sodium [Moles/Vol] 136 mmol/L 133-145 [facility] TSH DL <= 0.005 mIU/L QnOrde red By: Katrina Berkowitz on 04-29-2025 TSH Qn 1.770 uIU/mL 0.300-4.200 [facility] Thyroid Stim Hormone (TSH)on 04-29-2025 TSH 1.770 uIU/mL Normal 0.300-4.200 [facility] Comment on above: Order Comment: 211.1 Performed By: #### L 501.9520, L500.2500, L503.0106, L100.0500, L501.5200, L506.1001 ####[facility] [address] [place], [address] Vitamin B12on 04-29-2025 Cobalamin (Vitamin B12) [Mass/Vol] 394 pg/mL Normal 180-914 [facility] Comment on above: Order Comment: 211.1 Performed By: #### L 501.9520, L500.2500, L503.0106, L100.0500, L501.5200, L506.1001 ####[facility] [address] [place], [address] Vitamin B12 ser/plasOrdered By: Katrina Berkowitz on 04-29-2025 Cobalamin (Vitamin B12) [Mass/Vol] 394 pg/mL 180-914 [facility] Vitamin D,25 Hydroxyon 04-29 Vitamin D 25-OH 36.5 ng/mL Normal 30-100 [facility] Comment on above: Order Comment: 211.1 Result Comment: Lori min D StatusDeficiency: <20 ng/mL (50nmol/L)Insufficiency: 20-30 ng/mL (50-75 nmol/L)Sufficiency: 30-100 ng/mL (75-250 nmol/L)Toxicity: >100 ng/mL (>250 nmol/L) Performed By: #### L 501.9520, L500.2500, L503.0106, L100.0500, L501.5200, L506.1001 ####[facility] [address] [place], [address] White blood cell (WBC) count Ordered By: Katrina Berkowitz on 04-29-2025 WBC (Bld) [#/Vol] 5.9 10*3/uL 4.4-11.0 [facility] Anion gap in Serum or Plasma Ordered By: Katrina Berkowitz on 04-24-2025 Anion gap [Moles/Vol] 7 mmol/L 5-15 [facility] BUN/creatinine ratioOrdered By: Katrina Berkowitz on 04-24-2025 Urea nitrogen/Creatinine [Mass ratio] 21.8 mg/mg High 04-21 [facility] Basic Metabolic Profile (BMP )on 04-24-2025 BUN/CRE 21.8 RATIO High 04-21 [facility] Comment on above: Order Comment: 211.1 Performed By: #### L 501.5200, L500.2500, L100.0500 ####[facility] [address] [place], [address] Calcium [Mass/Vol] 9.0 mg/dL Normal 7.6-11.0 [facility] Comment on above: Order Comment: 211.1 Performed By: #### L 501.5200, L500.2500, L100.0500 ####[facility] [address] [place], [address] Chloride [Moles/Vol] 91 mmol/L Low 98-108 [facility] Comment on above: Order Comment: 211.1 Performed By: #### L 501.5200, L500.2500, L100.0500 ####[facility] [address] [place], [address] CO2 [Moles/Vol] 35.4 mmol/L High 21.0-32.0 [facility] Comment on above: Order Comment: 211.1 Performed By: #### L 501.5200, L500.2500, L100.0500 ####[facility] [address] [place], [address] Creatinine [Mass/Vol] 1.41 mg/dL High 0.70-1.20 [facility] Comment on above: Order Comment: 211.1 Performed By: #### L 501.5200, L500.2500, L100.0500 ####[facility] [address] [place], [address] GAP 7 Normal 5-15 [facility] Comment on above: Order Comment: 211.1 Performed By: #### L 501.5200, L500.2500, L100.0500 ####[facility] [address] [place], [address] GFR/1.73 sq M.predicted among non-blacks MDRD (S/P/Bld) [Vol rate/Area] 39 mL/min/{1.73_m2} Low >60 [facility] Comment on above: Order Comment: 211.1 Result Comment: mL/m in/1.73m2 CKD-EPI Creatinine Equation (2020) Performed By: #### L 501.5200, L500.2500, L100.0500 ####[facility] [address] [place], [address] Glucose [Mass/Vol] 100 mg/dL High 70-99 [facility] Comment on above: Order Comment: 211.1 Performed By: #### L 501.5200, L500.2500, L100.0500 ####[facility] [address] [place], [address] Potassium [Moles/Vol] 4.4 mmol/L Normal 3.3-5.1 [facility] Comment on above: Order Comment: 211.1 Performed By: #### L 501.5200, L500.2500, L100.0500 ####[facility] [address] [place], [address] Sodium [Moles/Vol] 134 mmol/L Normal 133-145 [facility] Comment on above: Order Comment: 211.1 Performed By: #### L 501.5200, L500.2500, L100.0500 ####[facility] [address] [place], [address] Urea nitrogen [Mass/Vol] 31 mg/dL High 4-19 [facility] Comment on above: Order Comment: 211.1 Performed By: #### L 501.5200, L500.2500, L100.0500 ####[facility] [address] [place], [address] CBC-Complete Blood Cnt No Di ffon 04-24-2025 Erythrocyte distribution width (RBC) [Ratio] 15.3 % High 11.6-14.6 [facility] Comment on above: Order Comment: 211.1 Performed By: #### L 501.5200, L500.2500, L100.0500 ####[facility] [address] [place], [address] Hematocrit (Bld) [Volume fraction] 32.9 % Low 37-47 [facility] Comment on above: Order Comment: 211.1 Performed By: #### L 501.5200, L500.2500, L100.0500 ####[facility] [address] [place], [address] Hemoglobin (Bld) [Mass/Vol] 10.7 g/dL Low 12.0-15.0 [facility] Comment on above: Order Comment: 211.1 Performed By: #### L 501.5200, L500.2500, L100.0500 ####[facility] [address] [place], [address] MCH (RBC) [Entitic mass] 29.8 pg Normal 27.0-32.0 [facility] Comment on above: Order Comment: 211.1 Performed By: #### L 501.5200, L500.2500, L100.0500 ####[facility] [address] [place], [address] MCHC (RBC) [Mass/Vol] 32.5 g/dL Normal 32-36 [facility] Comment on above: Order Comment: 211.1 Performed By: #### L 501.5200, L500.2500, L100.0500 ####[facility] [address] [place], [address] MCV (RBC) [Entitic vol] 91.6 fL Normal 81-99 [facility] Comment on above: Order Comment: 211.1 Performed By: #### L 501.5200, L500.2500, L100.0500 ####[facility] [address] [place], [address] Platelet mean volume (Bld) [Entitic vol] 10.8 fL Normal 6.2-12.0 [facility] Comment on above: Order Comment: 211.1 Performed By: #### L 501.5200, L500.2500, L100.0500 ####[facility] [address] [place], [address] Platelets (Bld) [#/Vol] 124 10*3/uL Low 150-450 [facility] Comment on above: Order Comment: 211.1 Performed By: #### L 501.5200, L500.2500, L100.0500 ####[facility] [address] [place], [address] RBC (Bld) [#/Vol] 3.59 10*6/uL Low 4.2-5.4 [facility] Comment on above: Order Comment: 211.1 Performed By: #### L 501.5200, L500.2500, L100.0500 ####[facility] [address] [place], [address] RDW SD 49.9 fl High 35.1-43.9 [facility] Comment on above: Order Comment: 211.1 Performed By: #### L 501.5200, L500.2500, L100.0500 ####[facility] [address] [place], [address] WBC (Bld) [#/Vol] 7.0 10*3/uL Normal 4.4-11.0 [facility] Comment on above: Order Comment: 211.1 Performed By: #### L 501.5200, L500.2500, L100.0500 ####[facility] [address] [place], [place], [address] Carbon dioxide, total [Moles /volume] in Central venous bloodOrdered By: Katrina Berkowitz on 04-24-2025 CO2 [Moles/Vol] 35.4 mmol/L High 21.0-32.0 [facility] Chloride assayOrdered By: Hermann Berkowitz on 04-24-2025 Chloride [Moles/Vol] 91 mmol/L Low 98-108 [facility] Culture, Blood (WB)on 2024 CUB Blood cultures x2, f rom two different sites No growth in 5 days. Normal [facility] Comment on above: Performed By: #### L 100.0100, M200.1000, L503.6005, L501.3620 ####[facility] [address] [place], [place], [address] Erythrocyte distribution wid th ratioOrdered By: Katrina Berkowitz on 04-24-2025 Erythrocyte distribution width (RBC) [Ratio] 15.3 % High 11.6-14.6 [facility] Erythrocyte distribution wid th standard deviationOrdered By: Katrina Berkowitz on 04-24-2025 Erythrocyte distribution width (RBC) [Ratio] 49.9 fl High 35.1-43.9 [facility] Glomerular filtration rate ( GFR) estimation/1.73 sq m using serum, plasma, or whole bOrdered By: Katrina Berkowitz on 04-24-2025 GFR/1.73 sq M.predicted among non-blacks MDRD (S/P/Bld) [Vol rate/Area] 39 mL/min/{1.73_m2} Low >60 [facility] Hematocrit Auto (Bld) [Volum e fraction]Ordered By: Katrina Berkowitz on 04-24-2025 Hematocrit (Bld) [Volume fraction] 32.9 % Low 37-47 [facility] Hemoglobin measurementOrdere d By: Katrina Berkowitz on 04-24-2025 Hemoglobin (Bld) [Mass/Vol] 10.7 g/dL Low 12.0-15.0 [facility] MCV (mean corpuscular volume ) determinationOrdered By: Katrina Berkowitz on 04-24-2025 MCV (RBC) [Entitic vol] 91.6 fL 81-99 [facility] Magnesiumon 04-24-2025 Magnesium [Mass/Vol] 1.3 mg/dL Low 1.5-2.2 [facility] Comment on above: Order Comment: 211.1 Performed By: #### L 501.5200, L500.2500, L100.0500 ####[facility] [address] [place], [place], [address] Magnesium measurement (mass/ volume)Ordered By: Katrina Berkowitz on 04-24-2025 Magnesium (Unsp spec) [Mass/Vol] 1.3 mg/dL Low 1.5-2.2 [facility] Mean corpuscular hemoglobin (MCH) determinationOrdered By: Katrina Berkowitz on 04-24-2025 MCH (RBC) [Entitic mass] 29.8 pg 27.0-32.0 [facility] Platelet countOrdered By: Hermann Berkowitz on 04-24-2025 Platelets (Bld) [#/Vol] 124 10*3/uL Low 150-450 [facility] Potassium measurement (mass/ volume)Ordered By: Katrina Berkowitz on 04-24-2025 Potassium (Unsp spec) [Mass/Vol] 4.4 mmol/L 3.3-5.1 [facility] RBC Auto (Bld) [#/Vol]Ordere d By: Katrina Berkowitz on 04-24-2025 RBC (Bld) [#/Vol] 3.59 10*6/uL Low 4.2-5.4 [facility] Serum creatinine measurement (mass/volume)Ordered By: Katrina Berkowitz on 04-24-2025 Creatinine [Mass/Vol] 1.41 mg/dL High 0.70-1.20 [facility] Serum glucose measurement (m ass/volume)Ordered By: Katrina Berkowitz on 04-24-2025 Glucose [Mass/Vol] 100 mg/dL High 70-99 [facility] Serum or plasma calcium lisa urement (mass/volume)Ordered By: Katrina Berkowitz on 04-24-2025 Calcium [Mass/Vol] 9.0 mg/dL 7.6-11.0 [facility] Serum or plasma urea nitroge n measurement (mass/volume)Ordered By: Katrina Berkowitz on 04-24-2025 Urea nitrogen [Mass/Vol] 31 mg/dL High 4-19 [facility] Sodium levelOrdered By: Lilli Berkowitz on 04-24-2025 Sodium [Moles/Vol] 134 mmol/L 133-145 [facility] White blood cell (WBC) count Ordered By: Katrina Berkowitz on 04-24-2025 WBC (Bld) [#/Vol] 7.0 10*3/uL 4.4-11.0 [facility] Absolute lymphocyte countOrd ered By: Garfield Pierson on 04-22-2025 Lymphocytes Auto (Unsp spec) [#/Vol] 1.13 10*3/uL 0.83-4.51 [facility] Anion gap in Serum or Plasma Ordered By: Garfield Pierson on 04-22-2025 Anion gap [Moles/Vol] 6 mmol/L 5-15 [facility] Automated lymphocyte count a s percentage of total leukocytesOrdered By: Garfield Pierson on 04-22-2025 Lymphocytes/100 WBC Auto (Unsp spec) 18.2 % Low 19-41 [facility] BUN/creatinine ratioOrdered By: Garfield Pierson on 04-22-2025 Urea nitrogen/Creatinine [Mass ratio] 25.4 mg/mg High 04-21 [facility] Basic Metabolic Profile (BMP )on 04-22-2025 BUN/CRE 25.4 RATIO High 04-21 [facility] Comment on above: Performed By: #### L 100.0100, L500.2500 ####[facility] [address] [place], [address] Calcium [Mass/Vol] 9.7 mg/dL Normal 7.6-11.0 [facility] Comment on above: Performed By: #### L 100.0100, L500.2500 ####[facility] [address] [place], [address] Chloride [Moles/Vol] 88 mmol/L Low 98-108 [facility] Comment on above: Performed By: #### L 100.0100, L500.2500 ####[facility] [address] [place], [address] CO2 [Moles/Vol] 40.0 mmol/L High 21.0-32.0 [facility] Comment on above: Performed By: #### L 100.0100, L500.2500 ####[facility] [address] [place], [address] Creatinine [Mass/Vol] 1.12 mg/dL Normal 0.70-1.20 [facility] Comment on above: Performed By: #### L 100.0100, L500.2500 ####[facility] [address] [place], [address] ECRCL 54.29 ml/min Normal 50-250 [facility] Comment on above: Performed By: #### L 100.0100, L500.2500 ####[facility] [address] [place], [address] GAP 6 Normal 5-15 [facility] Comment on above: Performed By: #### L 100.0100, L500.2500 ####[facility] [address] [place], [address] GFR/1.73 sq M.predicted among non-blacks MDRD (S/P/Bld) [Vol rate/Area] 51 mL/min/{1.73_m2} Low >60 [facility] Comment on above: Result Comment: mL/m in/1.73m2 CKD-EPI Creatinine Equation (2020) Performed By: #### L 100.0100, L500.2500 ####[facility] [address] [place], [address] Glucose [Mass/Vol] 102 mg/dL High 70-99 [facility] Comment on above: Performed By: #### L 100.0100, L500.2500 ####[facility] [address] [place], [address] Potassium [Moles/Vol] 4.7 mmol/L Normal 3.3-5.1 [facility] Comment on above: Performed By: #### L 100.0100, L500.2500 ####[facility] [address] [place], [address] Sodium [Moles/Vol] 134 mmol/L Normal 133-145 [facility] Comment on above: Performed By: #### L 100.0100, L500.2500 ####[facility] [address] [place], [address] Urea nitrogen [Mass/Vol] 28 mg/dL High 4-19 [facility] Comment on above: Performed By: #### L 100.0100, L500.2500 ####[facility] [address] [place], [address] Basophil percentageOrdered B y: Garfield Pierson on 04-22-2025 Basophils/100 WBC (Bld) 0.8 % 0-1 [facility] CBC W/Diff, Automatedon 10- Absolute Lymph 1.13 X10 3/uL Normal 0.83-4.51 [facility] Comment on above: Performed By: #### L 100.0100, L500.2500 ####[facility] [address] [place], [address] Absolute Neut 4.2 X10 3/uL Normal 2.0-7.7 [facility] Comment on above: Performed By: #### L 100.0100, L500.2500 ####[facility] [address] [place], [address] Basophils/100 WBC (Bld) 0.8 % Normal 0-1 [facility] Comment on above: Performed By: #### L 100.0100, L500.2500 ####[facility] [address] [place], [address] Eosinophils/100 WBC (Bld) 3.7 % Normal 0-5 [facility] Comment on above: Performed By: #### L 100.0100, L500.2500 ####[facility] [address] [place], [address] Erythrocyte distribution width (RBC) [Ratio] 14.6 % Normal 11.6-14.6 [facility] Comment on above: Performed By: #### L 100.0100, L500.2500 ####[facility] [address] [place], [address] Hematocrit (Bld) [Volume fraction] 38.2 % Normal 37-47 [facility] Comment on above: Performed By: #### L 100.0100, L500.2500 ####[facility] [address] [place], [address] Hemoglobin (Bld) [Mass/Vol] 12.3 g/dL Normal 12.0-15.0 [facility] Comment on above: Performed By: #### L 100.0100, L500.2500 ####[facility] [address] [place], [address] IG% 1.800 High 0.0-0.9 [facility] Comment on above: Result Comment: IG% - Immature Granulocytes (promyelocytes, myelocytes andmetamyelocytes) > 1% indicates that a LEFT SHIFT is Present. Performed By: #### L 100.0100, L500.2500 ####[facility] [address] [place], [address] Lymphocytes/100 WBC (Bld) 18.2 % Low 19-41 [facility] Comment on above: Performed By: #### L 100.0100, L500.2500 ####[facility] [address] [place], [address] MCH (RBC) [Entitic mass] 29.2 pg Normal 27.0-32.0 [facility] Comment on above: Performed By: #### L 100.0100, L500.2500 ####[facility] [address] [place], [address] MCHC (RBC) [Mass/Vol] 32.2 g/dL Normal 32-36 [facility] Comment on above: Performed By: #### L 100.0100, L500.2500 ####[facility] [address] [place], [address] MCV (RBC) [Entitic vol] 90.7 fL Normal 81-99 [facility] Comment on above: Performed By: #### L 100.0100, L500.2500 ####[facility] [address] [place], [address] Monocytes/100 WBC (Bld) 8.7 % Normal 0-10 [facility] Comment on above: Performed By: #### L 100.0100, L500.2500 ####[facility] [address] [place], [address] Neutrophils/100 WBC (Bld) 66.8 % Normal 47-70 [facility] Comment on above: Performed By: #### L 100.0100, L500.2500 ####[facility] [address] [place], [address] Nucleated RBC (Bld) [#/Vol] 0 10*3/uL Normal 0-5 [facility] Comment on above: Performed By: #### L 100.0100, L500.2500 ####[facility] [address] [place], [address] Platelet mean volume (Bld) [Entitic vol] 10.6 fL Normal 6.2-12.0 [facility] Comment on above: Performed By: #### L 100.0100, L500.2500 ####[facility] [address] [place], [address] Platelets (Bld) [#/Vol] 115 10*3/uL Low 150-450 [facility] Comment on above: Performed By: #### L 100.0100, L500.2500 ####[facility] [address] [place], [address] RBC (Bld) [#/Vol] 4.21 10*6/uL Normal 4.2-5.4 [facility] Comment on above: Performed By: #### L 100.0100, L500.2500 ####[facility] [address] [place], [address] RDW SD 47.8 fl High 35.1-43.9 [facility] Comment on above: Performed By: #### L 100.0100, L500.2500 ####[facility] [address] [place], [address] WBC (Bld) [#/Vol] 6.2 10*3/uL Normal 4.4-11.0 [facility] Comment on above: Performed By: #### L 100.0100, L500.2500 ####[facility] [address] [place], [address] Carbon dioxide, total [Moles /volume] in Central venous bloodOrdered By: Garfield Pierson on 04-22-2025 CO2 [Moles/Vol] 40.0 mmol/L High 21.0-32.0 [facility] Chloride assayOrdered By: Nina Pierson on 04-22-2025 Chloride [Moles/Vol] 88 mmol/L Low 98-108 [facility] Eosinophil percentageOrdered By: Garfield Pierson on 04-22-2025 Eosinophils/100 WBC (Bld) 3.7 % 0-5 [facility] Erythrocyte distribution wid th ratioOrdered By: Garfield Pierson on 04-22-2025 Erythrocyte distribution width (RBC) [Ratio] 14.6 % 11.6-14.6 [facility] Erythrocyte distribution wid th standard deviationOrdered By: Garfield Pierson on 04-22-2025 Erythrocyte distribution width (RBC) [Ratio] 47.8 fl High 35.1-43.9 [facility] Glomerular filtration rate ( GFR) estimation/1.73 sq m using serum, plasma, or whole bOrdered By: Garfield Pierson on 04-22-2025 GFR/1.73 sq M.predicted among non-blacks MDRD (S/P/Bld) [Vol rate/Area] 51 mL/min/{1.73_m2} Low >60 [facility] Hematocrit Auto (Bld) [Volum e fraction]Ordered By: Garfield Pierson on 04-22-2025 Hematocrit (Bld) [Volume fraction] 38.2 % 37-47 [facility] Hemoglobin measurementOrdere d By: Garfield Pierson on 04-22-2025 Hemoglobin (Bld) [Mass/Vol] 12.3 g/dL 12.0-15.0 [facility] Immature granulocytes/100 WB C Auto (Bld)Ordered By: Garfield Pierson on 04-22-2025 Immature granulocytes/100 WBC (Bld) 1.800 % High 0.0-0.9 [facility] MCV (mean corpuscular volume ) determinationOrdered By: Garfield Pierson on 04-22-2025 MCV (RBC) [Entitic vol] 90.7 fL 81-99 [facility] Mean corpuscular hemoglobin (MCH) determinationOrdered By: Garfield Pierson on 04-22-2025 MCH (RBC) [Entitic mass] 29.2 pg 27.0-32.0 [facility] Monocyte percentageOrdered B y: Garfield Pierson on 04-22-2025 Monocytes/100 WBC (Bld) 8.7 % 0-10 [facility] Neutrophil percentageOrdered By: Garfield Pierson on 04-22-2025 Neutrophils/100 WBC (Bld) 66.8 % 47-70 [facility] Platelet countOrdered By: Nina Pierson on 04-22-2025 Platelets (Bld) [#/Vol] 115 10*3/uL Low 150-450 [facility] Potassium measurement (mass/ volume)Ordered By: Garfield Pierson on 04-22-2025 Potassium (Unsp spec) [Mass/Vol] 4.7 mmol/L 3.3-5.1 [facility] RBC Auto (Bld) [#/Vol]Ordere d By: Garfield Pierson on 04-22-2025 RBC (Bld) [#/Vol] 4.21 10*6/uL 4.2-5.4 [facility] Serum creatinine measurement (mass/volume)Ordered By: Garfield Pierson on 04-22-2025 Creatinine [Mass/Vol] 1.12 mg/dL 0.70-1.20 [facility] Serum glucose measurement (m ass/volume)Ordered By: Garfield Pierson on 04-22-2025 Glucose [Mass/Vol] 102 mg/dL High 70-99 [facility] Serum or plasma calcium lisa urement (mass/volume)Ordered By: Garfield Pierson on 04-22-2025 Calcium [Mass/Vol] 9.7 mg/dL 7.6-11.0 [facility] Serum or plasma urea nitroge n measurement (mass/volume)Ordered By: Garfield Pierson on 04-22-2025 Urea nitrogen [Mass/Vol] 28 mg/dL High 4-19 [facility] Sodium levelOrdered By: Asha Pierson on 04-22-2025 Sodium [Moles/Vol] 134 mmol/L 133-145 [facility] Urine Cultureon 04-22-2025 URC Mixed Gram Pos Gram Neg Org [place] Count 11,000-25,000 MIXC Mixed contaminants. Submit a new specimen if indicated. Normal [facility] Comment on above: Performed By: #### M 300.4500, M100.2200, M8200.1000, M100.678, L8200.1000, M300.4600, L400.0001 ####[facility] [address] [place], [address] White blood cell (WBC) count Ordered By: Garfield Pierson on 04-22-2025 WBC (Bld) [#/Vol] 6.2 10*3/uL 4.4-11.0 [facility] Basic Metabolic Profile (BMP )on 04-21-2025 BUN/CRE 27.3 RATIO High 04-21 [facility] Comment on above: Performed By: #### L 100.0100, L500.2500 ####[facility] [address] [place], [address] Calcium [Mass/Vol] 9.0 mg/dL Normal 7.6-11.0 [facility] Comment on above: Performed By: #### L 100.0100, L500.2500 ####[facility] [address] [place], [address] Chloride [Moles/Vol] 85 mmol/L Low 98-108 [facility] Comment on above: Performed By: #### L 100.0100, L500.2500 ####[facility] [address] [place], [address] CO2 [Moles/Vol] 37.5 mmol/L High 21.0-32.0 [facility] Comment on above: Performed By: #### L 100.0100, L500.2500 ####[facility] [address] [place], [address] Creatinine [Mass/Vol] 1.20 mg/dL Normal 0.70-1.20 [facility] Comment on above: Performed By: #### L 100.0100, L500.2500 ####[facility] [address] [place], [address] ECRCL 50.67 ml/min Normal 50-250 [facility] Comment on above: Performed By: #### L 100.0100, L500.2500 ####[facility] [address] [place], [address] GAP 5 Normal 5-15 [facility] Comment on above: Performed By: #### L 100.0100, L500.2500 ####[facility] [address] [place], [address] GFR/1.73 sq M.predicted among non-blacks MDRD (S/P/Bld) [Vol rate/Area] 47 mL/min/{1.73_m2} Low >60 [facility] Comment on above: Result Comment: mL/m in/1.73m2 CKD-EPI Creatinine Equation (2020) Performed By: #### L 100.0100, L500.2500 ####[facility] [address] [place], [address] Glucose [Mass/Vol] 130 mg/dL High 70-99 [facility] Comment on above: Performed By: #### L 100.0100, L500.2500 ####[facility] [address] [place], [address] Potassium [Moles/Vol] 4.2 mmol/L Normal 3.3-5.1 [facility] Comment on above: Performed By: #### L 100.0100, L500.2500 ####[facility] [address] [place], [address] Sodium [Moles/Vol] 127 mmol/L Low 133-145 [facility] Comment on above: Performed By: #### L 100.0100, L500.2500 ####[facility] [address] [place], [address] Urea nitrogen [Mass/Vol] 33 mg/dL High 4-19 [facility] Comment on above: Performed By: #### L 100.0100, L500.2500 ####[facility] [address] [place], [address] CBC W/Diff, Automatedon 10-2 0-2025 Absolute Lymph 1.01 X10 3/uL Normal 0.83-4.51 [facility] Comment on above: Performed By: #### L 100.0100, L500.2500 ####[facility] [address] [place], [address] Absolute Neut 5.7 X10 3/uL Normal 2.0-7.7 [facility] Comment on above: Performed By: #### L 100.0100, L500.2500 ####[facility] [address] [place], [address] Basophils/100 WBC (Bld) 0.5 % Normal 0-1 [facility] Comment on above: Performed By: #### L 100.0100, L500.2500 ####[facility] [address] [place], [address] Eosinophils/100 WBC (Bld) 2.6 % Normal 0-5 [facility] Comment on above: Performed By: #### L 100.0100, L500.2500 ####[facility] [address] [place], [address] Erythrocyte distribution width (RBC) [Ratio] 14.6 % Normal 11.6-14.6 [facility] Comment on above: Performed By: #### L 100.0100, L500.2500 ####[facility] [address] [place], [address] Hematocrit (Bld) [Volume fraction] 35.2 % Low 37-47 [facility] Comment on above: Performed By: #### L 100.0100, L500.2500 ####[facility] [address] [place], [address] Hemoglobin (Bld) [Mass/Vol] 11.5 g/dL Low 12.0-15.0 [facility] Comment on above: Performed By: #### L 100.0100, L500.2500 ####[facility] [address] [place], [address] IG% 1.100 High 0.0-0.9 [facility] Comment on above: Result Comment: IG% - Immature Granulocytes (promyelocytes, myelocytes andmetamyelocytes) > 1% indicates that a LEFT SHIFT is Present. Performed By: #### L 100.0100, L500.2500 ####[facility] [address] [place], [address] Lymphocytes/100 WBC (Bld) 13.3 % Low 19-41 [facility] Comment on above: Performed By: #### L 100.0100, L500.2500 ####[facility] [address] [place], [address] MCH (RBC) [Entitic mass] 29.4 pg Normal 27.0-32.0 [facility] Comment on above: Performed By: #### L 100.0100, L500.2500 ####[facility] [address] [place], [address] MCHC (RBC) [Mass/Vol] 32.7 g/dL Normal 32-36 [facility] Comment on above: Performed By: #### L 100.0100, L500.2500 ####[facility] [address] [place], [address] MCV (RBC) [Entitic vol] 90.0 fL Normal 81-99 [facility] Comment on above: Performed By: #### L 100.0100, L500.2500 ####[facility] [address] [place], [address] Monocytes/100 WBC (Bld) 8.1 % Normal 0-10 [facility] Comment on above: Performed By: #### L 100.0100, L500.2500 ####[facility] [address] [place], [address] Neutrophils/100 WBC (Bld) 74.4 % High 47-70 [facility] Comment on above: Performed By: #### L 100.0100, L500.2500 ####[facility] [address] [place], [address] Nucleated RBC (Bld) [#/Vol] 0 10*3/uL Normal 0-5 [facility] Comment on above: Performed By: #### L 100.0100, L500.2500 ####[facility] [address] [place], [address] Platelet mean volume (Bld) [Entitic vol] 10.7 fL Normal 6.2-12.0 [facility] Comment on above: Performed By: #### L 100.0100, L500.2500 ####[facility] [address] [place], [address] Platelets (Bld) [#/Vol] 113 10*3/uL Low 150-450 [facility] Comment on above: Performed By: #### L 100.0100, L500.2500 ####[facility] [address] [place], [address] RBC (Bld) [#/Vol] 3.91 10*6/uL Low 4.2-5.4 [facility] Comment on above: Performed By: #### L 100.0100, L500.2500 ####[facility] [address] [place], [address] RDW SD 46.6 fl High 35.1-43.9 [facility] Comment on above: Performed By: #### L 100.0100, L500.2500 ####[facility] [address] [place], [address] WBC (Bld) [#/Vol] 7.6 10*3/uL Normal 4.4-11.0 [facility] Comment on above: Performed By: #### L 100.0100, L500.2500 ####[facility] [address] [place], [address] Consultation - Nephrologyon 04-21-2025 Consultation - Nephrology Normal [facility] Venous Duplex US - Chase Extre mon 04-21-2025 Venous Duplex US - Chase Extrem Normal [facility] Venous duplex ultrasound rep ortOrdered By: Dm Fong on 04-21-2025 US Vein [facility] Other Phone: US Vein [facility] Other Phone: Amphetamine detection with 1 000 ng/mL as cutoffOrdered By: Garfiedl Pierson on 04-20-2025 Amphetamines Screen method >1000 ng/mL Ql (U) Negative < 200 ng/mL [facility] Basic Metabolic Profile (BMP )on 04-20-2025 BUN/CRE 29.4 RATIO High 04-21 [facility] Comment on above: Performed By: #### L 100.0100, L500.2500 ####[facility] [address] [place], [address] Calcium [Mass/Vol] 9.0 mg/dL Normal 7.6-11.0 [facility] Comment on above: Performed By: #### L 100.0100, L500.2500 ####[facility] [address] [place], [address] Chloride [Moles/Vol] 83 mmol/L Low 98-108 [facility] Comment on above: Performed By: #### L 100.0100, L500.2500 ####[facility] [address] [place], [address] CO2 [Moles/Vol] 36.7 mmol/L High 21.0-32.0 [facility] Comment on above: Performed By: #### L 100.0100, L500.2500 ####[facility] [address] [place], [address] Creatinine [Mass/Vol] 1.31 mg/dL High 0.70-1.20 [facility] Comment on above: Performed By: #### L 100.0100, L500.2500 ####[facility] [address] [place], [address] ECRCL 46.46 ml/min Low 50-250 [facility] Comment on above: Performed By: #### L 100.0100, L500.2500 ####[facility] [address] [place], [address] GAP 5 Normal 5-15 [facility] Comment on above: Performed By: #### L 100.0100, L500.2500 ####[facility] [address] [place], [address] GFR/1.73 sq M.predicted among non-blacks MDRD (S/P/Bld) [Vol rate/Area] 42 mL/min/{1.73_m2} Low >60 [facility] Comment on above: Result Comment: mL/m in/1.73m2 CKD-EPI Creatinine Equation (2020) Performed By: #### L 100.0100, L500.2500 ####[facility] [address] [place], [address] Glucose [Mass/Vol] 113 mg/dL High 70-99 [facility] Comment on above: Performed By: #### L 100.0100, L500.2500 ####[facility] [address] [place], [address] Potassium [Moles/Vol] 4.0 mmol/L Normal 3.3-5.1 [facility] Comment on above: Performed By: #### L 100.0100, L500.2500 ####[facility] [address] [place], [address] Sodium [Moles/Vol] 125 mmol/L Low 133-145 [facility] Comment on above: Performed By: #### L 100.0100, L500.2500 ####[facility] [address] [place], [address] Urea nitrogen [Mass/Vol] 39 mg/dL High - [facility] Comment on above: Performed By: #### L 100.0100, L500.2500 ####[facility] [address] [place], [address] Bilirubin Test strip Ql (U)O rdered By: Garfield Pierson on 04-20-2025 Bilirubin Ql (U) Negative Negative [facility] CBC W/Diff, Automatedon 04-02 Absolute Lymph 1.11 X10 3/uL Normal 0.83-4.51 [facility] Comment on above: Performed By: #### L 100.0100, L500.2500 ####[facility] [address] [place], [address] Absolute Neut 5.5 X10 3/uL Normal 2.0-7.7 [facility] Comment on above: Performed By: #### L 100.0100, L500.2500 ####[facility] [address] [place], [address] Basophils/100 WBC (Bld) 0.4 % Normal 0-1 [facility] Comment on above: Performed By: #### L 100.0100, L500.2500 ####[facility] [address] [place], [address] Eosinophils/100 WBC (Bld) 2.9 % Normal 0-5 [facility] Comment on above: Performed By: #### L 100.0100, L500.2500 ####[facility] [address] [place], [address] Erythrocyte distribution width (RBC) [Ratio] 14.5 % Normal 11.6-14.6 [facility] Comment on above: Performed By: #### L 100.0100, L500.2500 ####[facility] [address] [place], [address] Hematocrit (Bld) [Volume fraction] 34.4 % Low 37-47 [facility] Comment on above: Performed By: #### L 100.0100, L500.2500 ####[facility] [address] [place], [address] Hemoglobin (Bld) [Mass/Vol] 11.1 g/dL Low 12.0-15.0 [facility] Comment on above: Performed By: #### L 100.0100, L500.2500 ####[facility] [address] [place], [address] IG% 0.900 Normal 0.0-0.9 [facility] Comment on above: Result Comment: IG% - Immature Granulocytes (promyelocytes, myelocytes andmetamyelocytes) > 1% indicates that a LEFT SHIFT is Present. Performed By: #### L 100.0100, L500.2500 ####[facility] [address] [place], [address] Lymphocytes/100 WBC (Bld) 14.8 % Low 19-41 [facility] Comment on above: Performed By: #### L 100.0100, L500.2500 ####[facility] [address] [place], [address] MCH (RBC) [Entitic mass] 29.1 pg Normal 27.0-32.0 [facility] Comment on above: Performed By: #### L 100.0100, L500.2500 ####[facility] [address] [place], [address] MCHC (RBC) [Mass/Vol] 32.3 g/dL Normal 32-36 [facility] Comment on above: Performed By: #### L 100.0100, L500.2500 ####[facility] [address] [place], [address] MCV (RBC) [Entitic vol] 90.3 fL Normal 81-99 [facility] Comment on above: Performed By: #### L 100.0100, L500.2500 ####[facility] [address] [place], [address] Monocytes/100 WBC (Bld) 7.7 % Normal 0-10 [facility] Comment on above: Performed By: #### L 100.0100, L500.2500 ####[facility] [address] [place], [address] Neutrophils/100 WBC (Bld) 73.3 % High 47-70 [facility] Comment on above: Performed By: #### L 100.0100, L500.2500 ####[facility] [address] [place], [address] Nucleated RBC (Bld) [#/Vol] 0 10*3/uL Normal 0-5 [facility] Comment on above: Performed By: #### L 100.0100, L500.2500 ####[facility] [address] [place], [address] Platelet mean volume (Bld) [Entitic vol] 10.5 fL Normal 6.2-12.0 [facility] Comment on above: Performed By: #### L 100.0100, L500.2500 ####[facility] [address] [place], [address] Platelets (Bld) [#/Vol] 115 10*3/uL Low 150-450 [facility] Comment on above: Performed By: #### L 100.0100, L500.2500 ####[facility] [address] [place], [address] RBC (Bld) [#/Vol] 3.81 10*6/uL Low 4.2-5.4 [facility] Comment on above: Performed By: #### L 100.0100, L500.2500 ####[facility] [address] [place], [address] RDW SD 47.6 fl High 35.1-43.9 [facility] Comment on above: Performed By: #### L 100.0100, L500.2500 ####[facility] [address] [place], [address] WBC (Bld) [#/Vol] 7.5 10*3/uL Normal 4.4-11.0 [facility] Comment on above: Performed By: #### L 100.0100, L500.2500 ####[facility] [address] [place], [address] Ketones Test strip Ql (U)Ord ered By: Garfield Pierson on 04-20-2025 Ketones Ql (U) Negative Negative [facility] Legionella Antigen Urineon 1 LEGU Normal [facility] Comment on above: Performed By: #### M 300.4500, M100.2200, M8200.1000, M100.678, L8200.1000, M300.4600, L400.0001 ####[facility] [address] [place], [address] Mucus LM Ql (Urine sed)Order ed By: Garfield Pierson on 04-20-2025 Mucus Ql (Urine sed) 0 SEEN /hpf [facility] Nitrite Test strip Ql (U)Ord ered By: Grafield Pierson on 04-20-2025 Nitrite Ql (U) Negative Negative [facility] No Panel InformationOrdered By: Garfield Pierson on 04-20-2025 Negative < 200 ng/mL [facility] Osmolality urOrdered By: Aminata Pierson on 04-20-2025 Osmolality (U) [Osmolality] 263 mOsm/KG >50 [facility] Osmolality, Urineon 04-20-20 25 OSMOLALITY,UR 263 mOsm/KG Normal [facility] Comment on above: Result Comment: Norm al Urine Reference Ranges Random: 50 - 1200 mOsm/kg H20 depending on fluid intake Random: >850 mOsm/kg after 12 hour fluid restriction 24 hour: 300 - 900 mOsm/kg H2O Performed By: #### L 501.7400 ####[facility] [address] [place], [address] Protein Test strip Ql (U)Ord ered By: Garfield Pierson on 04-20-2025 Protein Ql (U) 30 mg/dl High Negative [facility] Screening urine fentanyl bubba surementOrdered By: Garfield Pierson on 04-20-2025 fentaNYL Screen Ql (U) Negative <5 ng/mL [facility] Squamous epithelial cells de tection in urine sediment by light microscopyOrdered By: Garfield Pierson on 04-20-2025 Epithelial cells.squamous LM Ql (Urine sed) 0-5 SEEN /hpf 5-10 [facility] Strep pneumoniae Antig(UR,CS F)on 04-20-2025 STPAG Normal [facility] Comment on above: Performed By: #### M 300.4500, M100.2200, M8200.1000, M100.678, L8200.1000, M300.4600, L400.0001 ####[facility] [address] [place], [address] Transitional cells detection in urine sediment by light microscopyOrdered By: Garfield Pierson on 04-20-2025 Transitional cells LM Ql (Urine sed) 0-5 SEEN /hpf 0-5 [facility] Urinalysis, Completeon 04-20 EPI,SQUAMOUS 0-5 SEEN Normal 5-10 [facility] Comment on above: Order Comment: DALY CHAVEZ TO SPECIFY Performed By: #### M 300.4500, M100.2200, M8200.1000, M100.678, L8200.1000, M300.4600, L400.0001 ####[facility] [address] [place], [address] EPI,TRANSITION 0-5 SEEN Normal 0-5 [facility] Comment on above: Order Comment: DALY CTOR TO SPECIFY Performed By: #### M 300.4500, M100.2200, M8200.1000, M100.678, L8200.1000, M300.4600, L400.0001 ####[facility] [address] [place], [address] BACTERIA 0 SEEN Normal None Seen [facility] Comment on above: Order Comment: DALY CTOR TO SPECIFY Performed By: #### M 300.4500, M100.2200, M8200.1000, M100.678, L8200.1000, M300.4600, L400.0001 ####[facility] [address] [place], [address] Mucus Ql (Urine sed) 0 SEEN Normal [facility] Comment on above: Order Comment: DALY CTOR TO SPECIFY Performed By: #### M 300.4500, M100.2200, M8200.1000, M100.678, L8200.1000, M300.4600, L400.0001 ####[facility] [address] [place], [address] RBC 0 SEEN Normal 0-5 [facility] Comment on above: Order Comment: DALY CTOR TO SPECIFY Performed By: #### M 300.4500, M100.2200, M8200.1000, M100.678, L8200.1000, M300.4600, L400.0001 ####[facility] [address] [place], [address] WBC 0 SEEN Normal 0-5 [facility] Comment on above: Order Comment: DALY CTOR TO SPECIFY Performed By: #### M 300.4500, M100.2200, M8200.1000, M100.678, L8200.1000, M300.4600, L400.0001 ####[facility] [address] [place], [address] Urine Drug Screen (VISTA)on 04-20-2025 AMPHETAMINES Negative Normal <1000 ng/mL [facility] Comment on above: Performed By: #### L 505.5000 ####[facility] [address] [place], [place], [address] BARBITIURATES Negative Normal < 200 ng/mL [facility] Comment on above: Performed By: #### L 505.5000 ####[facility] [address] [facility] [id number] BENZODIAZIPINE Negative Normal < 200 ng/mL [facility] Comment on above: Performed By: #### L 505.5000 ####[facility] [address] [place], [place], [address] BUP Ur Drug Scr Negative Normal < 200 ng/mL [facility] Comment on above: Performed By: #### L 505.5000 ####[facility] [address] [place], [place], [address] COCAINE Negative Normal < 300 ng/mL [facility] Comment on above: Performed By: #### L 505.5000 ####[facility] [address] [place], [phone] Fentanyl Negative Normal <5 ng/mL [facility] Comment on above: Result Comment: CONF IRMATORY TESTING FOR ALL POSITIVE URINE DRUG SCREENRESULTS WILL ONLY BE SENT OUT UPON PHYSICIAN ORDER.[employer] Urine Drug Screen methods provide only preliminaryanalytical test results. A more specific alternate chemicalmethod must be used in order to obtain a confirmedanalytical result. Gas chromatography/mass spectrometery(GC/MS) is the preferred confirmatory method. Clinicalconsideration and professional judgement should be appliedto any drug of abuse test result, particularly whenpreliminary positive results are used.Urine TCA testing must be ordered separately. Use testmnemonic: [facility] Performed By: #### L 505.5000 ####[facility] [address] [place], [place], [address] METHADONE Negative Normal < 300 ng/mL [facility] Comment on above: Performed By: #### L 505.5000 ####[facility] [address] [place], [address] OPIATES Negative Normal < 300 ng/mL [facility] Comment on above: Performed By: #### L 505.5000 ####[facility] [address] [place], [address] OXYCODONE Negative Normal < 100 ng/mL [facility] Comment on above: Performed By: #### L 505.5000 ####[facility] [address] [place], [address] PCP Negative Normal < 25 ng/mL [facility] Comment on above: Performed By: #### L 505.5000 ####[facility] [address] [place], [address] THC Negative Normal < 50 ng/mL [facility] Comment on above: Performed By: #### L 505.5000 ####[facility] [address] [place], [address] Urine Legionella pneumophila antigen detectionOrdered By: Garfield Pierson on 04-20-2025 L. pneumophila Ag Ql (U) [facility] L. pneumophila Ag Ql (U) [facility] Urine Sodiumon 04-20-2025 Sodium (U) [Moles/Vol] 34 mmol/L Normal Not Establ. [facility] Comment on above: Performed By: #### L 501.5500 ####[facility] [address] [place], [address] Urine clarityOrdered By: Aminata Pierson on 04-20-2025 Clarity (U) Sl. Cloudy Clear [facility] Urine color determinationOrd ered By: Garfield Pierson on 04-20-2025 Color (U) Yellow Yellow [facility] Urine cultureOrdered By: Aminata Pierson on 04-20-2025 Bacteria identified Cx Nom (U) Mixed Gram Pos & Gram Neg Org Abnormal [facility] Bacteria identified Cx Nom (U) Mixed Gram Pos & Gram Neg Org Abnormal [facility] Urine glucose detectionOrder ed By: Garfield Pierson on 04-20-2025 Glucose Ql (U) 250 mg/dl High Normal [facility] Urine leukocyte esterase det ection by dipstickOrdered By: Garfield Pierson on 04-20-2025 Leukocyte esterase Test strip Ql (U) Negative Negative [facility] Urine pHOrdered By: Garfield Pierson on 04-20-2025 pH (U) 6.0 [pH] 5.0 - 8.0 [facility] Urine phencyclidine (PCP) de tectionOrdered By: Garfield Pierson on 04-20-2025 Phencyclidine Ql (U) Negative < 25 ng/mL [facility] Urine sediment bacteria coun t by microscopy (number/high power field)Ordered By: Garfield Pierson on 04-20-2025 Bacteria LM.HPF (Urine sed) [#/Area] 0 /[HPF] None Seen [facility] Urine sodium measurement (mo les/volume)Ordered By: Jermaine Simms on 04-20-2025 Sodium (U) [Moles/Vol] 34 mmol/L Not Establ. [facility] Urine specific gravity measu rementOrdered By: Garfield Pierson on 04-20-2025 Specific gravity (U) [Rel density] 1.010 1.002-1.030 [facility] Urine urobilinogen measureme ntOrdered By: Garfield Pierson on 04-20-2025 Urobilinogen Ql (U) Normal mg/dl Normal [facility] White blood cell countOrdere d By: Garfield Pierson on 04-20-2025 White blood cell count 0 SEEN /hpf 0-5 [facility] Basic Metabolic Profile (BMP )on 04-19-2025 BUN/CRE 28.8 RATIO High 04-21 [facility] Comment on above: Performed By: #### L 500.2500 ####[facility] [address] [place], [address] Calcium [Mass/Vol] 8.8 mg/dL Normal 7.6-11.0 [facility] Comment on above: Performed By: #### L 500.2500 ####[facility] [address] [place], [address] Chloride [Moles/Vol] 83 mmol/L Low 98-108 [facility] Comment on above: Performed By: #### L 500.2500 ####[facility] [address] [place], [address] CO2 [Moles/Vol] 33.7 mmol/L High 21.0-32.0 [facility] Comment on above: Performed By: #### L 500.2500 ####[facility] [address] [place], [address] Creatinine [Mass/Vol] 1.39 mg/dL High 0.70-1.20 [facility] Comment on above: Performed By: #### L 500.2500 ####[facility] [address] [place], [address] ECRCL 43.20 ml/min Low 50-250 [facility] Comment on above: Performed By: #### L 500.2500 ####[facility] [address] [place], [address] GAP 9 Normal 5-15 [facility] Comment on above: Performed By: #### L 500.2500 ####[facility] [address] [place], [address] GFR/1.73 sq M.predicted among non-blacks MDRD (S/P/Bld) [Vol rate/Area] 39 mL/min/{1.73_m2} Low >60 [facility] Comment on above: Result Comment: mL/m in/1.73m2 CKD-EPI Creatinine Equation (2020) Performed By: #### L 500.2500 ####[facility] [address] [place], [address] Glucose [Mass/Vol] 128 mg/dL High 70-99 [facility] Comment on above: Performed By: #### L 500.2500 ####[facility] [address] [place], [address] Potassium [Moles/Vol] 4.3 mmol/L Normal 3.3-5.1 [facility] Comment on above: Performed By: #### L 500.2500 ####[facility] [address] [place], [address] Sodium [Moles/Vol] 125 mmol/L Low 133-145 [facility] Comment on above: Performed By: #### L 500.2500 ####[facility] [address] [place], [address] Urea nitrogen [Mass/Vol] 40 mg/dL High 4-19 [facility] Comment on above: Performed By: #### L 500.2500 ####[facility] [address] [place], [address] BUN/CRE 30.5 RATIO High 10-20 [facility] Comment on above: Performed By: #### L 500.4100, L500.2500, L100.0500 ####[facility] [address] [place], [address] Calcium [Mass/Vol] 9.4 mg/dL Normal 7.6-11.0 [facility] Comment on above: Performed By: #### L 500.4100, L500.2500, L100.0500 ####[facility] [address] [place], [address] Chloride [Moles/Vol] 78 mmol/L Low 98-108 [facility] Comment on above: Performed By: #### L 500.4100, L500.2500, L100.0500 ####[facility] [address] [place], [address] CO2 [Moles/Vol] 40.9 mmol/L High 21.0-32.0 [facility] Comment on above: Performed By: #### L 500.4100, L500.2500, L100.0500 ####[facility] [address] [place], [address] Creatinine [Mass/Vol] 1.33 mg/dL High 0.70-1.20 [facility] Comment on above: Performed By: #### L 500.4100, L500.2500, L100.0500 ####[facility] [address] [place], [address] ECRCL 45.15 ml/min Low 50-250 [facility] Comment on above: Performed By: #### L 500.4100, L500.2500, L100.0500 ####[facility] [address] [place], [address] GAP 4 Low 5-15 [facility] Comment on above: Performed By: #### L 500.4100, L500.2500, L100.0500 ####[facility] [address] [place], [address] GFR/1.73 sq M.predicted among non-blacks MDRD (S/P/Bld) [Vol rate/Area] 41 mL/min/{1.73_m2} Low >60 [facility] Comment on above: Result Comment: mL/m in/1.73m2 CKD-EPI Creatinine Equation (2020) Performed By: #### L 500.4100, L500.2500, L100.0500 ####[facility] [address] [place], [address] Glucose [Mass/Vol] 105 mg/dL High 70-99 [facility] Comment on above: Performed By: #### L 500.4100, L500.2500, L100.0500 ####[facility] [address] [place], [address] Potassium [Moles/Vol] 4.4 mmol/L Normal 3.3-5.1 [facility] Comment on above: Performed By: #### L 500.4100, L500.2500, L100.0500 ####[facility] [address] [place], [address] Sodium [Moles/Vol] 123 mmol/L Low 133-145 [facility] Comment on above: Performed By: #### L 500.4100, L500.2500, L100.0500 ####[facility] [address] [place], [address] Urea nitrogen [Mass/Vol] 41 mg/dL High 4-19 [facility] Comment on above: Performed By: #### L 500.4100, L500.2500, L100.0500 ####[facility] [address] [place], [address] Bedside Glucoseon 04-19-2025 FINGERSTICK GLU 108 mg/dL High 74-106 [facility] Comment on above: Result Comment: ROSA ISELA GEMENT OF PATIENT CARE PER NURSING PROTOCOL Performed By: #### L 501.080 ####[facility] [address] [place], [address] Blood cultureOrdered By: Aminata Pierson on 04-19-2025 Bacteria identified Cx Nom (Bld) No growth in 5 days. [facility] Bacteria identified Cx Nom (Bld) No growth in 5 days. [facility] Bacteria identified Cx Nom (Bld) No growth in 5 days. [facility] Bacteria identified Cx Nom (Bld) No growth in 5 days. [facility] CBC W/Diff, Automatedon 10- Absolute Lymph 1.28 X10 3/uL Normal 0.83-4.51 [facility] Comment on above: Performed By: #### L 100.0100, M200.1000, L503.6005, L501.3620 ####[facility] [address] [place], [address] Absolute Neut 6.0 X10 3/uL Normal 2.0-7.7 [facility] Comment on above: Performed By: #### L 100.0100, M200.1000, L503.6005, L501.3620 ####[facility] [address] [place], [address] Basophils/100 WBC (Bld) 0.4 % Normal 0-1 [facility] Comment on above: Performed By: #### L 100.0100, M200.1000, L503.6005, L501.3620 ####[facility] [address] [place], [address] Eosinophils/100 WBC (Bld) 2.7 % Normal 0-5 [facility] Comment on above: Performed By: #### L 100.0100, M200.1000, L503.6005, L501.3620 ####[facility] [address] [place], [address] Erythrocyte distribution width (RBC) [Ratio] 14.5 % Normal 11.6-14.6 [facility] Comment on above: Performed By: #### L 100.0100, M200.1000, L503.6005, L501.3620 ####[facility] [address] [place], [address] Hematocrit (Bld) [Volume fraction] 34.7 % Low 37-47 [facility] Comment on above: Performed By: #### L 100.0100, M200.1000, L503.6005, L501.3620 ####[facility] [address] [place], [address] Hemoglobin (Bld) [Mass/Vol] 11.3 g/dL Low 12.0-15.0 [facility] Comment on above: Performed By: #### L 100.0100, M200.1000, L503.6005, L501.3620 ####[facility] [address] [place], [address] IG% 0.900 Normal 0.0-0.9 [facility] Comment on above: Result Comment: IG% - Immature Granulocytes (promyelocytes, myelocytes andmetamyelocytes) > 1% indicates that a LEFT SHIFT is Present. Performed By: #### L 100.0100, M200.1000, L503.6005, L501.3620 ####[facility] [address] [place], [address] Lymphocytes/100 WBC (Bld) 15.6 % Low 19-41 [facility] Comment on above: Performed By: #### L 100.0100, M200.1000, L503.6005, L501.3620 ####[facility] [address] [place], [address] MCH (RBC) [Entitic mass] 29.7 pg Normal 27.0-32.0 [facility] Comment on above: Performed By: #### L 100.0100, M200.1000, L503.6005, L501.3620 ####[facility] [address] [place], [address] MCHC (RBC) [Mass/Vol] 32.6 g/dL Normal 32-36 [facility] Comment on above: Performed By: #### L 100.0100, M200.1000, L503.6005, L501.3620 ####[facility] [address] [place], [address] MCV (RBC) [Entitic vol] 91.1 fL Normal 81-99 [facility] Comment on above: Performed By: #### L 100.0100, M200.1000, L503.6005, L501.3620 ####[facility] [address] [place], [address] Monocytes/100 WBC (Bld) 7.9 % Normal 0-10 [facility] Comment on above: Performed By: #### L 100.0100, M200.1000, L503.6005, L501.3620 ####[facility] [address] [place], [address] Neutrophils/100 WBC (Bld) 72.5 % High 47-70 [facility] Comment on above: Performed By: #### L 100.0100, M200.1000, L503.6005, L501.3620 ####[facility] [address] [place], [address] Nucleated RBC (Bld) [#/Vol] 0 10*3/uL Normal 0-5 [facility] Comment on above: Performed By: #### L 100.0100, M200.1000, L503.6005, L501.3620 ####[facility] [address] [place], [address] Platelet mean volume (Bld) [Entitic vol] 10.7 fL Normal 6.2-12.0 [facility] Comment on above: Performed By: #### L 100.0100, M200.1000, L503.6005, L501.3620 ####[facility] [address] [place], [address] Platelets (Bld) [#/Vol] 121 10*3/uL Low 150-450 [facility] Comment on above: Performed By: #### L 100.0100, M200.1000, L503.6005, L501.3620 ####[facility] [address] [place], [address] RBC (Bld) [#/Vol] 3.81 10*6/uL Low 4.2-5.4 [facility] Comment on above: Performed By: #### L 100.0100, M200.1000, L503.6005, L501.3620 ####[facility] [address] [place], [address] RDW SD 48.4 fl High 35.1-43.9 [facility] Comment on above: Performed By: #### L 100.0100, M200.1000, L503.6005, L501.3620 ####[facility] [address] [place], [address] WBC (Bld) [#/Vol] 8.2 10*3/uL Normal 4.4-11.0 [facility] Comment on above: Performed By: #### L 100.0100, M200.1000, L503.6005, L501.3620 ####[facility] [address] [place], [address] CBC-Complete Blood Cnt No Di ffon 04-19-2025 Erythrocyte distribution width (RBC) [Ratio] 14.3 % Normal 11.6-14.6 [facility] Comment on above: Performed By: #### L 500.4100, L500.2500, L100.0500 ####[facility] [address] [place], [address] Hematocrit (Bld) [Volume fraction] 36.7 % Low 37-47 [facility] Comment on above: Performed By: #### L 500.4100, L500.2500, L100.0500 ####[facility] [address] [place], [address] Hemoglobin (Bld) [Mass/Vol] 12.1 g/dL Normal 12.0-15.0 [facility] Comment on above: Performed By: #### L 500.4100, L500.2500, L100.0500 ####[facility] [address] [place], [address] MCH (RBC) [Entitic mass] 29.4 pg Normal 27.0-32.0 [facility] Comment on above: Performed By: #### L 500.4100, L500.2500, L100.0500 ####[facility] [address] [place], [address] MCHC (RBC) [Mass/Vol] 33.0 g/dL Normal 32-36 [facility] Comment on above: Performed By: #### L 500.4100, L500.2500, L100.0500 ####[facility] [address] [place], [address] MCV (RBC) [Entitic vol] 89.3 fL Normal 81-99 [facility] Comment on above: Performed By: #### L 500.4100, L500.2500, L100.0500 ####[facility] [address] [place], [address] Platelet mean volume (Bld) [Entitic vol] 10.6 fL Normal 6.2-12.0 [facility] Comment on above: Performed By: #### L 500.4100, L500.2500, L100.0500 ####[facility] [address] [place], [address] Platelets (Bld) [#/Vol] 129 10*3/uL Low 150-450 [facility] Comment on above: Performed By: #### L 500.4100, L500.2500, L100.0500 ####[facility] [address] [place], [address] RBC (Bld) [#/Vol] 4.11 10*6/uL Low 4.2-5.4 [facility] Comment on above: Performed By: #### L 500.4100, L500.2500, L100.0500 ####[facility] [address] [place], [address] RDW SD 47.1 fl High 35.1-43.9 [facility] Comment on above: Performed By: #### L 500.4100, L500.2500, L100.0500 ####[facility] [address] [place], [address] WBC (Bld) [#/Vol] 7.7 10*3/uL Normal 4.4-11.0 [facility] Comment on above: Performed By: #### L 500.4100, L500.2500, L100.0500 ####[facility] [address] [place], [address] CO2 (BldV) [Moles/Vol]Ordere d By: Garfield Pierson on 04-19-2025 CO2 [Moles/Vol] 34 mmol/L High 23-33 [facility] CPK Total, Creatine Kinaseon 04-19-2025 CPK TOTAL 65 U/L Normal 24-195 [facility] Comment on above: Performed By: #### L 100.0100, M200.1000, L503.6005, L501.3620 ####[facility] [address] 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 [facility] Gl[facility] at [facility] deOrdered By: Jermaine Simms on 04-19-2025 Glucose [Mass/Vol] 108 mg/dL High 74-106 [facility] Influenza virus A and B and SARS-CoV-2 (COVID-19) and Respiratory syncytial virus RNAOrdered By: Garfield Pierson on 04-19-2025 SARS-CoV-2 (COVID-19) RNA RANJIT+probe Ql (Unsp spec) [facility] SARS-CoV-2 (COVID-19) RNA RANJIT+probe Ql (Unsp spec) [facility] L509.6001on 04-19-2025 CORTISOL 18.40 ug/dL Normal 6.02-18.40 [facility] Comment on above: Performed By: #### L 509.6001 ####[facility] [address] [place], [address] LDL calc ser/plasOrdered By: Jermaine Simms on 04-19-2025 Cholesterol in LDL [Mass/Vol] 113 mg/dL [facility] Lactic Acidon 04-19-2025 Lactate [Moles/Vol] 1.3 mmol/L Normal 0.0-2.0 [facility] Comment on above: Order Comment: Y Performed By: #### L 100.0100, M200.1000, L503.6005, L501.3620 ####[facility] [address] [place], [address] Lipid Profileon 04-19-2025 CHOL:HDL 2.89 Normal [facility] Comment on above: Performed By: #### L 500.4100, L500.2500, L100.0500 ####[facility] [address] [place], [address] Cholesterol [Mass/Vol] 206 mg/dL High <=200 [facility] Comment on above: Result Comment: Chol esterol level, Desirable <200 mg/dLBorderline high cholesterol 200-239 mg/dLHigh cholesterol >=240 mg/dLRecommendations of the NCEP Adult Treatment Panel for thefollowing risk-cutoff thresholds for the [place] Americanpulation. Performed By: #### L 500.4100, L500.2500, L100.0500 ####[facility] [address] [place], [address] Cholesterol in HDL [Mass/Vol] 71 mg/dL Normal [facility] Comment on above: Result Comment: Aliya onal Cholesterol Education Program (NCEP) guidelines:<40 mg/dL: Low HDL-cholesterol (major risk factor for CHD)>= 60 mg/dL: High HDL-cholesterol (negative risk factor forCHD)HDL-cholesterol is affected by a number of factors, e.g.smoking, exercise, hormones, sex and age. Performed By: #### L 500.4100, L500.2500, L100.0500 ####[facility] [address] [place], [address] Cholesterol in LDL [Mass/Vol] 113 mg/dL Normal [facility] Comment on above: Result Comment: Bord bkbhir=747-823 mg/dL Higher Bzsy=335 mg/dL or greaterSampson Equation 2020 for LDL-C Performed By: #### L 500.4100, L500.2500, L100.0500 ####[facility] [address] [place], [address] Cholesterol in VLDL [Mass/Vol] 25 mg/dL Normal 5-40 [facility] Comment on above: Performed By: #### L 500.4100, L500.2500, L100.0500 ####[facility] [address] [place], [address] Triglyceride [Mass/Vol] 125 mg/dL Normal [facility] Comment on above: Result Comment: The drugs N-Acetylcysteine and Metamizole may falselydepress this assay.Normal range: <150 mg/dLBorderline High: 150-199 mg/dLHigh: 200-499 mg/dLVery High: >500 mg/dL Performed By: #### L 500.4100, L500.2500, L100.0500 ####[facility] [address] [place], [address] M R Staph Aureus DNA by PCRo n 04-19-2025 MRSA DNA ASSAY Normal Negative [facility] Comment on above: Result Comment: DUPL ICATE ORDER Performed By: #### M 300.4500, M100.2200, M8200.1000, M100.678, L8200.1000, M300.4600, L400.0001 ####[facility] [address] [place], [address] PROBE CHECK Normal [facility] Comment on above: Result Comment: DUPL ICATE ORDER Performed By: #### M 300.4500, M100.2200, M8200.1000, M100.678, L8200.1000, M300.4600, L400.0001 ####[facility] [address] [place], [place], [phone] SPC Normal [facility] Comment on above: Result Comment: DUPL ICATE ORDER Performed By: #### M 300.4500, M100.2200, M8200.1000, M100.678, L8200.1000, M300.4600, L400.0001 ####[facility] [address] [place], [address] M100.678on 04-19-2025 M100.678 SARS-CoV-2 (COVID 19 ) Negative INFLUENZA A Negative INFLUENZA B Negative RSV PCR Negative Normal [facility] Comment on above: Performed By: #### M 300.4500, M100.2200, M8200.1000, M100.678, L8200.1000, M300.4600, L400.0001 ####[facility] [address] [facility] [place], [place], [phone] M8200.1000on 04-19-2025 M8200.1000 Normal Reference Ran ge = Negative MRSA DNA Nose Ql RANJIT+probe GeneXpert Instrument, PCR method MRSA PCR MRSA NEGATIVE Normal [facility] Comment on above: Performed By: #### M 300.4500, M100.2200, M8200.1000, M100.678, L8200.1000, M300.4600, L400.0001 ####[facility] [address] [place], [place], [phone] Nasal methicillin resistant Staphylococcus aureus (MRSA) DNA detection by PCROrdered By: Garfield Pierson on 04-19-2025 MRSA DNA RANJIT+probe Ql (Nose) [facility] MRSA DNA RANJIT+probe Ql (Nose) [facility] No Panel InformationOrdered By: Garfield Pierson on 04-19-2025 MARICRUZ [facility] Not entered [facility] Cannula [facility] Osmolality, Serumon 04-19-20 25 OSMOLALITY,SER 279 mOsm/KG Low 280-301 [facility] Comment on above: Performed By: #### L 501.7300 ####[facility] [address] [place], [address] Serum or plasma cholesterol in HDL measurement (mass/volume)Ordered By: Jermaine Simms on 04-19-2025 Cholesterol in HDL [Mass/Vol] 71 mg/dL >40 [facility] Serum or plasma cholesterol measurement (mass/volume)Ordered By: Jermaine Simms on 04-19-2025 Cholesterol [Mass/Vol] 206 mg/dL High <201 [facility] Serum or plasma cortisol bubba surement (mass/volume)Ordered By: Jermaine Simms on 04-19-2025 Cortisol [Mass/Vol] 18.40 ug/dL 6.02-18.40 [facility] Serum or plasma creatine kin ase activityOrdered By: Garfield Pierson on 04-19-2025 CK [Catalytic activity/Vol] 65 U/L 24-195 [facility] Venous Blood Gason 5 Blood Gas Type MARICRUZ [facility] Comment on above: Performed By: #### L 9000.0810 ####[facility] [address] [place], [address] CO2 [Moles/Vol] 34 mmol/L High 23-33 [facility] Comment on above: Performed By: #### L 9000.0810 ####[facility] [address] [place], [address] FI02 2.0 Normal [facility] Comment on above: Performed By: #### L 9000.0810 ####[facility] [address] [place], [address] HCO3 (Bld) [Moles/Vol] 33 mmol/L High 22-26 [facility] Comment on above: Performed By: #### L 9000.0810 ####[facility] [address] [place], [address] O2 Delivery Dev Cannula Normal [facility] Comment on above: Performed By: #### L 9000.0810 ####[facility] [address] [place], [address] SITE Not entered Normal [facility] Comment on above: Performed By: #### L 9000.0810 ####[facility] [address] [place], [address] VBG BE 10 mmol/L High -1.0-3.5 [facility] Comment on above: Performed By: #### L 9000.0810 ####[facility] [address] [place], [address] VBG pCO2 44.6 mmHg Normal 41-51 [facility] Comment on above: Performed By: #### L 9000.0810 ####[facility] [address] [place], [address] VBG pH 7.48 High 7.32-7.42 [facility] Comment on above: Performed By: #### L 9000.0810 ####[facility] [address] [place], [address] VBG PO2 133 mmHg High 25-40 [facility] Comment on above: Performed By: #### L 9000.0810 ####[facility] [address] [place], [address] VBG SO2 99 High 50-70 [facility] Comment on above: Performed By: #### L 9000.0810 ####[facility] [address] [place], [address] Venous blood base excess bubba surementOrdered By: Garfield Pierson on 04-19-2025 Base excess Calc (BldV) [Moles/Vol] 10 mmol/L High -1.0-3.5 [facility] Venous blood bicarbonate bubba surementOrdered By: Garfield Pierson on 04-19-2025 HCO3 (Bld) [Moles/Vol] 33 mmol/L High 22-26 [facility] Venous blood pH measurementO rdered By: Garfield Pierson on 04-19-2025 pH (BldV) 7.48 [pH] High 7.32-7.42 [facility] Venous blood partial pressur e of carbon dioxide measurementOrdered By: Garfield Pierson on 04-19-2025 CO2 (BldV) [Partial pressure] 44.6 mm[Hg] 41-51 [facility] Venous blood partial pressur e of oxygen measurementOrdered By: Garfield Pierson on 04-19-2025 Oxygen (BldV) [Partial pressure] 133 mm[Hg] High 25-40 [facility] Bilirubin, totalOrdered By: Deion Levy on 04-18-2025 Bilirubin [Mass/Vol] 0.41 mg/dL 0.00-1.30 [facility] CBC W/Diff, Automatedon 04-02 Absolute Lymph 1.09 X10 3/uL Normal 0.83-4.51 [facility] Comment on above: Performed By: #### L 100.0100, L500.4050 ####[facility] [address] [place], [address] Absolute Neut 7.8 X10 3/uL High 2.0-7.7 [facility] Comment on above: Performed By: #### L 100.0100, L500.4050 ####[facility] [address] [place], [address] Basophils/100 WBC (Bld) 0.2 % Normal 0-1 [facility] Comment on above: Performed By: #### L 100.0100, L500.4050 ####[facility] [address] [place], [address] Eosinophils/100 WBC (Bld) 1.6 % Normal 0-5 [facility] Comment on above: Performed By: #### L 100.0100, L500.4050 ####[facility] [address] [place], [address] Erythrocyte distribution width (RBC) [Ratio] 13.9 % Normal 11.6-14.6 [facility] Comment on above: Performed By: #### L 100.0100, L500.4050 ####[facility] [address] [place], [address] Hematocrit (Bld) [Volume fraction] 40.0 % Normal 37-47 [facility] Comment on above: Performed By: #### L 100.0100, L500.4050 ####[facility] [address] [place], [address] Hemoglobin (Bld) [Mass/Vol] 13.1 g/dL Normal 12.0-15.0 [facility] Comment on above: Performed By: #### L 100.0100, L500.4050 ####[facility] [address] [place], [address] IG% 0.600 Normal 0.0-0.9 [facility] Comment on above: Result Comment: IG% - Immature Granulocytes (promyelocytes, myelocytes andmetamyelocytes) > 1% indicates that a LEFT SHIFT is Present. Performed By: #### L 100.0100, L500.4050 ####[facility] [address] [place], [address] Lymphocytes/100 WBC (Bld) 10.9 % Low 19-41 [facility] Comment on above: Performed By: #### L 100.0100, L500.4050 ####[facility] [address] [place], [address] MCH (RBC) [Entitic mass] 29.2 pg Normal 27.0-32.0 [facility] Comment on above: Performed By: #### L 100.0100, L500.4050 ####[facility] [address] [place], [address] MCHC (RBC) [Mass/Vol] 32.8 g/dL Normal 32-36 [facility] Comment on above: Performed By: #### L 100.0100, L500.4050 ####[facility] [address] [place], [address] MCV (RBC) [Entitic vol] 89.1 fL Normal 81-99 [facility] Comment on above: Performed By: #### L 100.0100, L500.4050 ####[facility] [address] [place], [address] Monocytes/100 WBC (Bld) 8.9 % Normal 0-10 [facility] Comment on above: Performed By: #### L 100.0100, L500.4050 ####[facility] [address] [place], [address] Neutrophils/100 WBC (Bld) 77.8 % High 47-70 [facility] Comment on above: Performed By: #### L 100.0100, L500.4050 ####[facility] [address] [place], [address] Nucleated RBC (Bld) [#/Vol] 0 10*3/uL Normal 0-5 [facility] Comment on above: Performed By: #### L 100.0100, L500.4050 ####[facility] [address] [place], [address] Platelet mean volume (Bld) [Entitic vol] 11.7 fL Normal 6.2-12.0 [facility] Comment on above: Performed By: #### L 100.0100, L500.4050 ####[facility] [address] [place], [address] Platelets (Bld) [#/Vol] 160 10*3/uL Normal 150-450 [facility] Comment on above: Performed By: #### L 100.0100, L500.4050 ####[facility] [address] [place], [address] RBC (Bld) [#/Vol] 4.49 10*6/uL Normal 4.2-5.4 [facility] Comment on above: Performed By: #### L 100.0100, L500.4050 ####[facility] [address] [place], [address] RDW SD 45.1 fl High 35.1-43.9 [facility] Comment on above: Performed By: #### L 100.0100, L500.4050 ####[facility] [address] [place], [address] WBC (Bld) [#/Vol] 10.0 10*3/uL Normal 4.4-11.0 [facility] Comment on above: Performed By: #### L 100.0100, L500.4050 ####[facility] [address] [place], [address] Comprehensive Metabolic Prof [facility] 04-18-2025 Albumin [Mass/Vol] 3.7 g/dL Normal 3.4-4.8 [facility] Comment on above: Performed By: #### L 100.0100, L500.4050 ####[facility] [address] [place], [address] Albumin/Globulin [Mass ratio] 1.2 {ratio} Normal 0.9-2.4 [facility] Comment on above: Performed By: #### L 100.0100, L500.4050 ####[facility] [address] [place], [address] ALK PHOS 123 U/L High 35-104 [facility] Comment on above: Performed By: #### L 100.0100, L500.4050 ####[facility] [address] [place], [address] ALT [Catalytic activity/Vol] 32 U/L Normal <=34 [facility] Comment on above: Performed By: #### L 100.0100, L500.4050 ####[facility] [address] [place], [address] AST [Catalytic activity/Vol] 50 U/L High <=31 [facility] Comment on above: Result Comment: Hemo lysis present, Results??could be affected.?? Performed By: #### L 100.0100, L500.4050 ####[facility] [address] [place], [address] Bilirubin [Mass/Vol] 0.41 mg/dL Normal 0.00-1.30 [facility] Comment on above: Performed By: #### L 100.0100, L500.4050 ####[facility] [address] [place], [address] BUN/CRE 40.9 RATIO High 10-20 [facility] Comment on above: Performed By: #### L 100.0100, L500.4050 ####[facility] [address] [place], [address] Calcium [Mass/Vol] 9.7 mg/dL Normal 7.6-11.0 [facility] Comment on above: Performed By: #### L 100.0100, L500.4050 ####[facility] [address] [place], [address] Chloride [Moles/Vol] 73 mmol/L Invalid Interpretation Code 98-108 [facility] Comment on above: Result Comment: Crit ical Result(s) Called at: 1613 by:??PIERRE YANG Results read back by same. Performed By: #### L 100.0100, L500.4050 ####[facility] [address] [place], [address] CO2 [Moles/Vol] 42.5 mmol/L High 21.0-32.0 [facility] Comment on above: Performed By: #### L 100.0100, L500.4050 ####[facility] [address] [place], [address] Creatinine [Mass/Vol] 1.30 mg/dL High 0.70-1.20 [facility] Comment on above: Performed By: #### L 100.0100, L500.4050 ####[facility] [address] [place], [address] ECRCL 46.24 ml/min Low 50-250 [facility] Comment on above: Performed By: #### L 100.0100, L500.4050 ####[facility] [address] [place], [address] GAP 6 Normal 5-15 [facility] Comment on above: Performed By: #### L 100.0100, L500.4050 ####[facility] [address] [place], [address] GFR/1.73 sq M.predicted among non-blacks MDRD (S/P/Bld) [Vol rate/Area] 43 mL/min/{1.73_m2} Low >60 [facility] Comment on above: Result Comment: mL/m in/1.73m2 CKD-EPI Creatinine Equation (2020) Performed By: #### L 100.0100, L500.4050 ####[facility] [address] [place], [address] Globulin (S) [Mass/Vol] 3.0 g/dL Normal 2.2-4.2 [facility] Comment on above: Performed By: #### L 100.0100, L500.4050 ####[facility] [address] [place], [address] Glucose [Mass/Vol] 102 mg/dL High 70-99 [facility] Comment on above: Performed By: #### L 100.0100, L500.4050 ####[facility] [address] [place], [address] Potassium [Moles/Vol] 5.4 mmol/L High 3.3-5.1 [facility] Comment on above: Result Comment: Hemo lysis present, Results??could be affected.?? Performed By: #### L 100.0100, L500.4050 ####[facility] [address] [place], [address] Sodium [Moles/Vol] 121 mmol/L Low 133-145 [facility] Comment on above: Performed By: #### L 100.0100, L500.4050 ####[facility] [address] [place], [address] T PROT 6.6 g/dL Normal 5.9-8.4 [facility] Comment on above: Performed By: #### L 100.0100, L500.4050 ####[facility] [address] [place], [address] Urea nitrogen [Mass/Vol] 53 mg/dL High 4-19 [facility] Comment on above: Performed By: #### L 100.0100, L500.4050 ####[facility] [address] [place], [address] Emergency Department Summary on 04-18-2025 Emergency Department Summary Normal [facility] H AND P Exam - Hospitaliston 04-18-2025 H&P Exam - Hospitalist Normal [facility] No Panel InformationOrdered By: Deion Levy on 04-18-2025 50 U/L High <32 [facility] Osmolality, Serumon 04-18-20 25 OSMOLALITY,SER 310 mOsm/KG High 280-301 [facility] Comment on above: Order Comment: Comme nts: ok to add on Performed By: #### L 501.7300 ####[facility] [address] [place], [address] Serum globulin measurementOr dered By: Deion Levy on 04-18-2025 Globulin (S) [Mass/Vol] 3.0 g/dL 2.2-4.2 [facility] Serum or plasma alanine gao otransferase (ALT) [facility]Or[facility] ALT [Catalytic activity/Vol] 32 U/L <35 [facility] Serum or plasma albumin lisa urement (mass/volume)Ordered By: [facility] on 04-18-2025 Albumin [Mass/Vol] 3.7 g/dL 3.4-4.8 [facility] Serum or plasma albumin/glob ulin mass ratioOrdered By: [facility] on 04-18-2025 Albumin/Globulin [Mass ratio] 1.2 {ratio} 0.9-2.4 [facility] Serum or plasma alkaline bee sphatase measurementOrdered By: [facility] on 04-18-2025 ALP [Catalytic activity/Vol] 123 U/L High 35-104 [facility] Total proteinOrdered By: [facility] on 04-18-2025 Protein [Mass/Vol] 6.6 g/dL 5.9-8.4 [facility] Comprehensive Metabolic Prof ilon 04-17-2025 Chloride [Moles/Vol] 74 mmol/L Invalid Interpretation Code 98-108 [facility] Comment on above: Order Comment: Order Date: 04/10/25Order Info: 0786-1 - CMPadd on lab Result Comment: Crit ical Result(s) Called at: 0810 04/17/25 by:RASHAWN???Results read back by same. AMENDED REPORT 04/17/25 0811 CL previously reported as: 74 *L mmol/LCritical Result(s) Called at: by:??Results read back bysame. Performed By: #### L 501.7300, L500.4050 ####[facility] [address] [place], [place], [address] Anion gap in Serum or Plasma Ordered By: Kamar Grimes on 04-16-2025 Anion gap [Moles/Vol] 7 mmol/L 11-14 [facility] BUN/creatinine ratioOrdered By: Kamar Grimes on 04-16-2025 Urea nitrogen/Creatinine [Mass ratio] 42.5 mg/mg High 04-21 [facility] Bilirubin, totalOrdered By: Kamar Grimes on 04-16-2025 Bilirubin [Mass/Vol] 0.40 mg/dL 0.00-1.30 [facility] Carbon dioxide, total [Moles /volume] in Central venous bloodOrdered By: Kamar Grimes on 04-16-2025 CO2 [Moles/Vol] 44.0 mmol/L High 21.0-32.0 [facility] Cardiology Visit Reporton Cardiology Visit Report Normal [facility] Chloride assayOrdered By: Jennifer Grimes on 04-16-2025 Chloride [Moles/Vol] 74 mmol/L Critically low 98-108 [facility] Glomerular filtration rate ( GFR) estimation/1.73 sq m using serum, plasma, or whole bOrdered By: Kamar Grimes on 04-16-2025 GFR/1.73 sq M.predicted among non-blacks MDRD (S/P/Bld) [Vol rate/Area] 27 mL/min/{1.73_m2} Low >60 [facility] No Panel InformationOrdered By: Kamar Grimes on 04-16-2025 45 U/L High <32 [facility] Osmolality, Serumon 04-16-20 25 OSMOLALITY,SER 300 mOsm/KG Normal 280-301 [facility] Comment on above: Order Comment: Order Date: 04/10/25Order Info: 2692-2 - OS Performed By: #### L 501.7300, L500.4050 ####[facility] [address] [place], [place], [address] Potassium measurement (mass/ volume)Ordered By: Kamar Grimes on 04-16-2025 Potassium (Unsp spec) [Mass/Vol] 5.1 mmol/L 3.3-5.1 [facility] Serum creatinine measurement (mass/volume)Ordered By: Kamar Grimes on 04-16-2025 Creatinine [Mass/Vol] 1.91 mg/dL High 0.70-1.20 [facility] Serum globulin measurementOr dered By: Kamar Grimes on 04-16-2025 Globulin (S) [Mass/Vol] 3.0 g/dL 2.2-4.2 [facility] Serum glucose measurement (m ass/volume)Ordered By: Kamar Grimes on 04-16-2025 Glucose [Mass/Vol] 108 mg/dL High 70-99 [facility] Serum or plasma alanine gao otransferase (ALT) measurementOrdered By: Kamar Grimes on 04-16-2025 ALT [Catalytic activity/Vol] 29 U/L <35 [facility] Serum or plasma albumin lisa urement (mass/volume)Ordered By: Kamar Grimes on 04-16-2025 Albumin [Mass/Vol] 3.9 g/dL 3.4-4.8 [facility] Serum or plasma albumin/glob ulin mass ratioOrdered By: Kamar Grimes on 04-16-2025 Albumin/Globulin [Mass ratio] 1.3 {ratio} 0.9-2.4 [facility] Serum or plasma alkaline bee sphatase measurementOrdered By: Kamar Grimes on 04-16-2025 ALP [Catalytic activity/Vol] 140 U/L High 35-104 [facility] Serum or plasma calcium lisa urement (mass/volume)Ordered By: Kamar Grimes on 04-16-2025 Calcium [Mass/Vol] 9.8 mg/dL 7.6-11.0 [facility] Serum or plasma urea nitroge n measurement (mass/volume)Ordered By: Kamar Grimes on 04-16-2025 Urea nitrogen [Mass/Vol] 81 mg/dL High 4-19 [facility] Sodium levelOrdered By: Kamar Grimes on 04-16-2025 Sodium [Moles/Vol] 125 mmol/L Low 133-145 [facility] Total proteinOrdered By: Esmer Grimes on 04-16-2025 Protein [Mass/Vol] 6.9 g/dL 5.9-8.4 [facility] Absolute lymphocyte countOrd ered By: Kamar Grimes on 04-09-2025 Lymphocytes Auto (Unsp spec) [#/Vol] 1.43 10*3/uL 0.83-4.51 [facility] Anion gap in Serum or Plasma Ordered By: Kamar Grimes on 04-09-2025 Anion gap [Moles/Vol] 11 mmol/L 5-15 [facility] Automated lymphocyte count a s percentage of total leukocytesOrdered By: Kamar Grimes on 04-09-2025 Lymphocytes/100 WBC Auto (Unsp spec) 13.0 % Low 19-41 [facility] BUN/creatinine ratioOrdered By: Kamar Grimes on 04-09-2025 Urea nitrogen/Creatinine [Mass ratio] 29.4 mg/mg High 10- [facility] Basic Metabolic Profile (BMP )on 04-09-2025 BUN Normal 4-19 [facility] Comment on above: Order Comment: Order Date: 03/31/25Order Info: 06-1 - BMP Result Comment: DUPL ICATE-CMP ORDERED Performed By: #### L 500.2500 ####[facility] [address] [place], [address] BUN/CRE Normal 10- [facility] Comment on above: Order Comment: Order Date: 03/31/25Order Info: 0667-1 - BMP Result Comment: DUPL ICATE-CMP ORDERED Performed By: #### L 500.2500 ####[facility] [address] [place], [address] Calcium Normal 7.6-11.0 [facility] Comment on above: Order Comment: Order Date: 03/31/25Order Info: 0667-1 - BMP Result Comment: DUPL ICATE-CMP ORDERED Performed By: #### L 500.2500 ####[facility] [address] [place], [address] CL Normal 98-108 [facility] Comment on above: Order Comment: Order Date: 03/31/25Order Info: 0667-1 - BMP Result Comment: DUPL ICATE-CMP ORDERED Performed By: #### L 500.2500 ####[facility] [address] [place], [address] CO2 Normal 21.0-32.0 [facility] Comment on above: Order Comment: Order Date: 03/31/25Order Info: 666- - BMP Result Comment: DUPL ICATE-CMP ORDERED Performed By: #### L 500.2500 ####[facility] [address] [place], [address] CREAT,SERUM Normal 0.70-1.20 [facility] Comment on above: Order Comment: Order Date: 03/31/25Order Info: 666- - BMP Result Comment: DUPL ICATE-CMP ORDERED Performed By: #### L 500.2500 ####[facility] [address] [place], [address] eGFR Normal >60 [facility] Comment on above: Order Comment: Order Date: 03/31/25Order Info: 666- - BMP Result Comment: DUPL ICATE-CMP ORDERED Performed By: #### L 500.2500 ####[facility] [address] [place], [address] GAP Normal 5-15 [facility] Comment on above: Order Comment: Order Date: 03/31/25Order Info: 666- - BMP Result Comment: DUPL ICATE-CMP ORDERED Performed By: #### L 500.2500 ####[facility] [address] [place], [address] GLU Normal 70-99 [facility] Comment on above: Order Comment: Order Date: 03/31/25Order Info: 666- - BMP Result Comment: DUPL ICATE-CMP ORDERED Performed By: #### L 500.2500 ####[facility] [address] [place], [address] Potassium Normal 3.3-5.1 [facility] Comment on above: Order Comment: Order Date: 03/31/25Order Info: 0667-1 - BMP Result Comment: DUPL ICATE-CMP ORDERED Performed By: #### L 500.2500 ####[facility] [address] [place], [address] Basic Metabolic Profile (BMP) Normal 133-145 [facility] Comment on above: Order Comment: Order Date: 03/31/25Order Info: 0667-1 - BMP Result Comment: DUPL ICATE-CMP ORDERED Performed By: #### L 500.2500 ####[facility] [address] [place], [address] Basophil percentageOrdered B y: Kamar Grimes on 04-09-2025 Basophils/100 WBC (Bld) 0.5 % 0-1 [facility] Bilirubin, totalOrdered By: Kamar Grimes on 04-09-2025 Bilirubin [Mass/Vol] 0.47 mg/dL 0.00-1.30 [facility] CBC W/Diff, Automatedon 10-0 Absolute Lymph 1.43 X10 3/uL Normal 0.83-4.51 [facility] Comment on above: Order Comment: Order Date: 04/09/25Order Info: 0184-1 - CBCD Performed By: #### L 100.0100, L500.4050 ####[facility] [address] [place], [address] Absolute Neut 8.3 X10 3/uL High 2.0-7.7 [facility] Comment on above: Order Comment: Order Date: 04/09/25Order Info: 0184-1 - CBCD Performed By: #### L 100.0100, L500.4050 ####[facility] [address] [place], [address] Basophils/100 WBC (Bld) 0.5 % Normal 0-1 [facility] Comment on above: Order Comment: Order Date: 04/09/25Order Info: 0184-1 - CBCD Performed By: #### L 100.0100, L500.4050 ####[facility] [address] [place], [address] Eosinophils/100 WBC (Bld) 1.0 % Normal 0-5 [facility] Comment on above: Order Comment: Order Date: 04/09/25Order Info: 0184-1 - CBCD Performed By: #### L 100.0100, L500.4050 ####[facility] [address] [place], [address] Erythrocyte distribution width (RBC) [Ratio] 13.7 % Normal 11.6-14.6 [facility] Comment on above: Order Comment: Order Date: 04/09/25Order Info: 0184-1 - CBCD Performed By: #### L 100.0100, L500.4050 ####[facility] [address] [place], [address] Hematocrit (Bld) [Volume fraction] 44.8 % Normal 37-47 [facility] Comment on above: Order Comment: Order Date: 04/09/25Order Info: 0184-1 - CBCD Performed By: #### L 100.0100, L500.4050 ####[facility] [address] [place], [address] Hemoglobin (Bld) [Mass/Vol] 14.5 g/dL Normal 12.0-15.0 [facility] Comment on above: Order Comment: Order Date: 04/09/25Order Info: 0184-1 - CBCD Performed By: #### L 100.0100, L500.4050 ####[facility] [address] [place], [address] IG% 0.800 Normal 0.0-0.9 [facility] Comment on above: Order Comment: Order Date: 04/09/25Order Info: 0184-1 - CBCD Result Comment: IG% - Immature Granulocytes (promyelocytes, myelocytes andmetamyelocytes) > 1% indicates that a LEFT SHIFT is Present. Performed By: #### L 100.0100, L500.4050 ####[facility] [address] [place], [address] Lymphocytes/100 WBC (Bld) 13.0 % Low 19-41 [facility] Comment on above: Order Comment: Order Date: 04/09/25Order Info: 0184-1 - CBCD Performed By: #### L 100.0100, L500.4050 ####[facility] [address] [place], [address] MCH (RBC) [Entitic mass] 29.4 pg Normal 27.0-32.0 [facility] Comment on above: Order Comment: Order Date: 04/09/25Order Info: 0184-1 - CBCD Performed By: #### L 100.0100, L500.4050 ####[facility] [address] [place], [address] MCHC (RBC) [Mass/Vol] 32.4 g/dL Normal 32-36 [facility] Comment on above: Order Comment: Order Date: 04/09/25Order Info: 0184-1 - CBCD Performed By: #### L 100.0100, L500.4050 ####[facility] [address] [place], [address] MCV (RBC) [Entitic vol] 90.7 fL Normal 81-99 [facility] Comment on above: Order Comment: Order Date: 04/09/25Order Info: 0184-1 - CBCD Performed By: #### L 100.0100, L500.4050 ####[facility] [address] [place], [address] Monocytes/100 WBC (Bld) 9.1 % Normal 0-10 [facility] Comment on above: Order Comment: Order Date: 04/09/25Order Info: 0184-1 - CBCD Performed By: #### L 100.0100, L500.4050 ####[facility] [address] [place], [address] Neutrophils/100 WBC (Bld) 75.6 % High 47-70 [facility] Comment on above: Order Comment: Order Date: 04/09/25Order Info: 0184-1 - CBCD Performed By: #### L 100.0100, L500.4050 ####[facility] [address] [place], [address] Nucleated RBC (Bld) [#/Vol] 0 10*3/uL Normal 0-5 [facility] Comment on above: Order Comment: Order Date: 04/09/25Order Info: 0184-1 - CBCD Performed By: #### L 100.0100, L500.4050 ####[facility] [address] [place], [address] Platelet mean volume (Bld) [Entitic vol] 11.1 fL Normal 6.2-12.0 [facility] Comment on above: Order Comment: Order Date: 04/09/25Order Info: 0184-1 - CBCD Performed By: #### L 100.0100, L500.4050 ####[facility] [address] [place], [address] Platelets (Bld) [#/Vol] 261 10*3/uL Normal 150-450 [facility] Comment on above: Order Comment: Order Date: 04/09/25Order Info: 0184-1 - CBCD Performed By: #### L 100.0100, L500.4050 ####[facility] [address] [place], [address] RBC (Bld) [#/Vol] 4.94 10*6/uL Normal 4.2-5.4 [facility] Comment on above: Order Comment: Order Date: 04/09/25Order Info: 0184-1 - CBCD Performed By: #### L 100.0100, L500.4050 ####[facility] [address] [place], [address] RDW SD 45.5 fl High 35.1-43.9 [facility] Comment on above: Order Comment: Order Date: 04/09/25Order Info: 0184-1 - CBCD Performed By: #### L 100.0100, L500.4050 ####[facility] [address] [place], [address] WBC (Bld) [#/Vol] 11.0 10*3/uL Normal 4.4-11.0 [facility] Comment on above: Order Comment: Order Date: 04/09/25Order Info: 0184-1 - CBCD Performed By: #### L 100.0100, L500.4050 ####[facility] [address] [place], [address] Carbon dioxide, total [Moles /volume] in Central venous bloodOrdered By: Kamar Grimes on 04-09-2025 CO2 [Moles/Vol] 46.1 mmol/L Critically high 21.0-32.0 [facility] Chloride assayOrdered By: Jennifer Grimes on 04-09-2025 Chloride [Moles/Vol] 71 mmol/L Critically low 98-108 [facility] Comprehensive Metabolic Prof ilon 04-09-2025 Albumin [Mass/Vol] 4.1 g/dL Normal 3.4-4.8 [facility] Comment on above: Order Comment: Order Date: 04/09/25Order Info: 0786-1 - CMP Performed By: #### L 100.0100, L500.4050 ####[facility] [address] [place], [address] Albumin/Globulin [Mass ratio] 1.2 {ratio} Normal 0.9-2.4 [facility] Comment on above: Order Comment: Order Date: 04/09/25Order Info: 0786-1 - CMP Performed By: #### L 100.0100, L500.4050 ####[facility] [address] [place], [address] ALK PHOS 161 U/L High 35-104 [facility] Comment on above: Order Comment: Order Date: 04/09/25Order Info: 0786-1 - CMP Performed By: #### L 100.0100, L500.4050 ####[facility] [address] [place], [address] ALT [Catalytic activity/Vol] 25 U/L Normal <=34 [facility] Comment on above: Order Comment: Order Date: 04/09/25Order Info: 0786-1 - CMP Performed By: #### L 100.0100, L500.4050 ####[facility] [address] [place], [address] AST [Catalytic activity/Vol] 39 U/L High <=31 [facility] Comment on above: Order Comment: Order Date: 04/09/25Order Info: 0786-1 - CMP Performed By: #### L 100.0100, L500.4050 ####[facility] [address] [place], [address] Bilirubin [Mass/Vol] 0.47 mg/dL Normal 0.00-1.30 [facility] Comment on above: Order Comment: Order Date: 04/09/25Order Info: 0786-1 - CMP Performed By: #### L 100.0100, L500.4050 ####[facility] [address] [place], [address] BUN/CRE 29.4 RATIO High 10-20 [facility] Comment on above: Order Comment: Order Date: 04/09/25Order Info: 0786-1 - CMP Performed By: #### L 100.0100, L500.4050 ####[facility] [address] [place], [address] Calcium [Mass/Vol] 10.3 mg/dL Normal 7.6-11.0 [facility] Comment on above: Order Comment: Order Date: 04/09/25Order Info: 0786-1 - CMP Performed By: #### L 100.0100, L500.4050 ####[facility] [address] [place], [address] Chloride [Moles/Vol] 71 mmol/L Invalid Interpretation Code 98-108 [facility] Comment on above: Order Comment: Order Date: 04/09/25Order Info: 0786-1 - CMP Result Comment: Crit ical Result(s) Called at: 1932 by:??PIERRE GASPAR TO DR.PAUL MUNIZ Results read back by same. Performed By: #### L 100.0100, L500.4050 ####[facility] [address] [place], [address] CO2 [Moles/Vol] 46.1 mmol/L Invalid Interpretation Code 21.0-32.0 [facility] Comment on above: Order Comment: Order Date: 04/09/25Order Info: 0786-1 - CMP Result Comment: Crit ical Result(s) Called at: 1932 by: PIERRE GASPAR TO DR.PAUL COTE??Results read back by same. Performed By: #### L 100.0100, L500.4050 ####[facility] [address] [place], [address] Creatinine [Mass/Vol] 1.61 mg/dL High 0.70-1.20 [facility] Comment on above: Order Comment: Order Date: 04/09/25Order Info: 0786-1 - CMP Performed By: #### L 100.0100, L500.4050 ####[facility] [address] [place], [address] GAP 11 Normal 5-15 [facility] Comment on above: Order Comment: Order Date: 04/09/25Order Info: 0786-1 - CMP Performed By: #### L 100.0100, L500.4050 ####[facility] [address] [place], [address] GFR/1.73 sq M.predicted among non-blacks MDRD (S/P/Bld) [Vol rate/Area] 33 mL/min/{1.73_m2} Low >60 [facility] Comment on above: Order Comment: Order Date: 04/09/25Order Info: 0786-1 - CMP Result Comment: mL/m in/1.73m2 CKD-EPI Creatinine Equation (2020) Performed By: #### L 100.0100, L500.4050 ####[facility] [address] [place], [address] Globulin (S) [Mass/Vol] 3.4 g/dL Normal 2.2-4.2 [facility] Comment on above: Order Comment: Order Date: 04/09/25Order Info: 0786-1 - CMP Performed By: #### L 100.0100, L500.4050 ####[facility] [address] [place], [address] Glucose [Mass/Vol] 116 mg/dL High 70-99 [facility] Comment on above: Order Comment: Order Date: 04/09/25Order Info: 0786-1 - CMP Performed By: #### L 100.0100, L500.4050 ####[facility] [address] [place], [address] Potassium [Moles/Vol] 4.6 mmol/L Normal 3.3-5.1 [facility] Comment on above: Order Comment: Order Date: 04/09/25Order Info: 0786-1 - CMP Performed By: #### L 100.0100, L500.4050 ####[facility] [address] [place], [address] Sodium [Moles/Vol] 128 mmol/L Low 133-145 [facility] Comment on above: Order Comment: Order Date: 04/09/25Order Info: 0786-1 - CMP Performed By: #### L 100.0100, L500.4050 ####[facility] [address] [place], [place], [id number] T PROT 7.5 g/dL Normal 5.9-8.4 [facility] Comment on above: Order Comment: Order Date: 04/09/25Order Info: 0786-1 - CMP Performed By: #### L 100.0100, L500.4050 ####[facility] [address] [place], [address] Urea nitrogen [Mass/Vol] 47 mg/dL High 4-19 [facility] Comment on above: Order Comment: Order Date: 04/09/25Order Info: 0786-1 - CMP Performed By: #### L 100.0100, L500.4050 ####[facility] [address] [place], [address] Eosinophil percentageOrdered By: Kamar Grimes on 04-09-2025 Eosinophils/100 WBC (Bld) 1.0 % 0-5 [facility] Erythrocyte distribution wid th ratioOrdered By: Kamar Grimes on 04-09-2025 Erythrocyte distribution width (RBC) [Ratio] 13.7 % 11.6-14.6 [facility] Erythrocyte distribution wid th standard deviationOrdered By: Kamar Grimes on 04-09-2025 Erythrocyte distribution width (RBC) [Ratio] 45.5 fl High 35.1-43.9 [facility] Glomerular filtration rate ( GFR) estimation/1.73 sq m using serum, plasma, or whole bOrdered By: Kamar Grimes on 04-09-2025 GFR/1.73 sq M.predicted among non-blacks MDRD (S/P/Bld) [Vol rate/Area] 33 mL/min/{1.73_m2} Low >60 [facility] Hematocrit Auto (Bld) [Volum e fraction]Ordered By: Kamar Grimes on 04-09-2025 Hematocrit (Bld) [Volume fraction] 44.8 % 37-47 [facility] Hemoglobin measurementOrdere d By: Kamar Grimes on 04-09-2025 Hemoglobin (Bld) [Mass/Vol] 14.5 g/dL 12.0-15.0 [facility] Immature granulocytes/100 WB C Auto (Bld)Ordered By: Kamar Grimes on 04-09-2025 Immature granulocytes/100 WBC (Bld) 0.800 % 0.0-0.9 [facility] MCV (mean corpuscular volume ) determinationOrdered By: Kamar Grimes on 04-09-2025 MCV (RBC) [Entitic vol] 90.7 fL 81-99 [facility] Mean corpuscular hemoglobin (MCH) determinationOrdered By: Kamar Grimes on 04-09-2025 MCH (RBC) [Entitic mass] 29.4 pg 27.0-32.0 [facility] Monocyte percentageOrdered B y: Kamar Grimes on 04-09-2025 Monocytes/100 WBC (Bld) 9.1 % 0-10 [facility] Natriuretic peptide.B prohor mac N-Terminal [Mass/volume] in Serum or PlasmaOrdered By: Kamar Grimes on 04-09-2025 Natriuretic peptide.B prohormone N-Terminal [Mass/Vol] 198 pg/mL <1800 [facility] Neutrophil percentageOrdered By: Kamar Grimes on 04-09-2025 Neutrophils/100 WBC (Bld) 75.6 % High 47-70 [facility] No Panel InformationOrdered By: Kamar Grimes on 04-09-2025 39 U/L High <32 [facility] Platelet countOrdered By: Jennifer Grimes on 04-09-2025 Platelets (Bld) [#/Vol] 261 10*3/uL 150-450 [facility] Potassium measurement (mass/ volume)Ordered By: Kamar Grimes on 04-09-2025 Potassium (Unsp spec) [Mass/Vol] 4.6 mmol/L 3.3-5.1 [facility] Pro- Brain NATRIURETIC PEPTI Rita 04-09-2025 Natriuretic peptide B (Bld) [Mass/Vol] 198 pg/mL Normal <=1800 [facility] Comment on above: Order Comment: Order Date: 04/09/25Order Info: 0786-1 - CMP Result Comment: Hear t Failure Unlikely: < 300 pg/mLHeart Failure Likely< 50 Years: > 450 pg/mL50-75 Years: > 900 pg/mL>75 Years: > 1800 pg/mL Performed By: #### L 503.7505 ####[facility] [address] [place], [address] RBC Auto (Bld) [#/Vol]Ordere d By: Kamar Grimes on 04-09-2025 RBC (Bld) [#/Vol] 4.94 10*6/uL 4.2-5.4 [facility] Serum creatinine measurement (mass/volume)Ordered By: Kamar Grimes on 04-09-2025 Creatinine [Mass/Vol] 1.61 mg/dL High 0.70-1.20 [facility] Serum globulin measurementOr dered By: Kamar Grimes on 04-09-2025 Globulin (S) [Mass/Vol] 3.4 g/dL 2.2-4.2 [facility] Serum glucose measurement (m ass/volume)Ordered By: Kamar Grimes on 04-09-2025 Glucose [Mass/Vol] 116 mg/dL High 70-99 [facility] Serum or plasma alanine gao otransferase (ALT) measurementOrdered By: Kamar Grimes on 04-09-2025 ALT [Catalytic activity/Vol] 25 U/L <35 [facility] Serum or plasma albumin lisa urement (mass/volume)Ordered By: Kamar Grimes on 04-09-2025 Albumin [Mass/Vol] 4.1 g/dL 3.4-4.8 [facility] Serum or plasma albumin/glob ulin mass ratioOrdered By: Kamar Grimes on 04-09-2025 Albumin/Globulin [Mass ratio] 1.2 {ratio} 0.9-2.4 [facility] Serum or plasma alkaline bee sphatase measurementOrdered By: Kamar Grimes on 04-09-2025 ALP [Catalytic activity/Vol] 161 U/L High 35-104 [facility] Serum or plasma calcium lisa urement (mass/volume)Ordered By: Kamar Grimes on 04-09-2025 Calcium [Mass/Vol] 10.3 mg/dL 7.6-11.0 [facility] Serum or plasma urea nitroge n measurement (mass/volume)Ordered By: Kamar Grimes on 04-09-2025 Urea nitrogen [Mass/Vol] 47 mg/dL High 10-19 [facility] Sodium levelOrdered By: Kamar Grimes on 04-09-2025 Sodium [Moles/Vol] 128 mmol/L Low 133-145 [facility] Total proteinOrdered By: Esmer Grimes on 04-09-2025 Protein [Mass/Vol] 7.5 g/dL 5.9-8.4 [facility] White blood cell (WBC) count Ordered By: Kamar Grimes on 04-09-2025 WBC (Bld) [#/Vol] 11.0 10*3/uL 4.4-11.0 [facility] Basic Metabolic Profile (BMP )on 03-27-2025 BUN Normal - [facility] Comment on above: Result Comment: Canc elled via OM: Order cancelled - Patient discharged Performed By: #### L 100.0100, L500.2500 ####[facility] [address] [place], [address] BUN/CRE Normal 10- [facility] Comment on above: Result Comment: Canc elled via OM: Order cancelled - Patient discharged Performed By: #### L 100.0100, L500.2500 ####[facility] [address] [place], [address] Calcium Normal 7.6-11.0 [facility] Comment on above: Result Comment: Canc elled via OM: Order cancelled - Patient discharged Performed By: #### L 100.0100, L500.2500 ####[facility] [address] [place], [address] CL Normal 98-108 [facility] Comment on above: Result Comment: Canc elled via OM: Order cancelled - Patient discharged Performed By: #### L 100.0100, L500.2500 ####[facility] [address] [place], [address] CO2 Normal 21.0-32.0 [facility] Comment on above: Result Comment: Canc elled via OM: Order cancelled - Patient discharged Performed By: #### L 100.0100, L500.2500 ####[facility] [address] [place], [address] CREAT,SERUM Normal 0.70-1.20 [facility] Comment on above: Result Comment: Canc elled via OM: Order cancelled - Patient discharged Performed By: #### L 100.0100, L500.2500 ####[facility] [address] [place], [address] eGFR Normal >60 [facility] Comment on above: Result Comment: Canc elled via OM: Order cancelled - Patient discharged Performed By: #### L 100.0100, L500.2500 ####[facility] [address] [place], [address] GAP Normal 5-15 [facility] Comment on above: Result Comment: Canc elled via OM: Order cancelled - Patient discharged Performed By: #### L 100.0100, L500.2500 ####[facility] [address] [place], [address] GLU Normal 70-99 [facility] Comment on above: Result Comment: Canc elled via OM: Order cancelled - Patient discharged Performed By: #### L 100.0100, L500.2500 ####[facility] [address] [place], [address] Potassium Normal 3.3-5.1 [facility] Comment on above: Result Comment: Canc elled via OM: Order cancelled - Patient discharged Performed By: #### L 100.0100, L500.2500 ####[facility] [address] [place], [address] Basic Metabolic Profile (BMP) Normal 133-145 [facility] Comment on above: Result Comment: Canc elled via OM: Order cancelled - Patient discharged Performed By: #### L 100.0100, L500.2500 ####[facility] [address] [place], [address] CBC W/Diff, Automatedon 09-2 -2024 Absolute Neut Normal 2.0-7.7 [facility] Comment on above: Result Comment: Canc elled via OM: Order cancelled - Patient discharged Performed By: #### L 100.0100, L500.2500 ####[facility] [address] [place], [address] HCT Normal 37-47 [facility] Comment on above: Result Comment: Canc elled via OM: Order cancelled - Patient discharged Performed By: #### L 100.0100, L500.2500 ####[facility] [address] [place], [address] HGB Normal 12.0-15.0 [facility] Comment on above: Result Comment: Canc elled via OM: Order cancelled - Patient discharged Performed By: #### L 100.0100, L500.2500 ####[facility] [address] [place], [address] MCH Normal 27.0-32.0 [facility] Comment on above: Result Comment: Canc elled via OM: Order cancelled - Patient discharged Performed By: #### L 100.0100, L500.2500 ####[facility] [address] [place], [address] MCHC Normal 32-36 [facility] Comment on above: Result Comment: Canc elled via OM: Order cancelled - Patient discharged Performed By: #### L 100.0100, L500.2500 ####[facility] [address] [place], [address] MCV Normal 81-99 [facility] Comment on above: Result Comment: Canc elled via OM: Order cancelled - Patient discharged Performed By: #### L 100.0100, L500.2500 ####[facility] [address] [place], [address] NEUT% Normal 47-70 [facility] Comment on above: Result Comment: Canc elled via OM: Order cancelled - Patient discharged Performed By: #### L 100.0100, L500.2500 ####[facility] [address] [place], [address] PLT Normal 150-450 [facility] Comment on above: Result Comment: Canc elled via OM: Order cancelled - Patient discharged Performed By: #### L 100.0100, L500.2500 ####[facility] [address] [place], [address] RBC Normal 4.2-5.4 [facility] Comment on above: Result Comment: Canc elled via OM: Order cancelled - Patient discharged Performed By: #### L 100.0100, L500.2500 ####[facility] [address] [place], [address] RDW CV Normal 11.6-14.6 [facility] Comment on above: Result Comment: Canc elled via OM: Order cancelled - Patient discharged Performed By: #### L 100.0100, L500.2500 ####[facility] [address] [place], [address] RDW SD Normal 35.1-43.9 [facility] Comment on above: Result Comment: Canc elled via OM: Order cancelled - Patient discharged Performed By: #### L 100.0100, L500.2500 ####[facility] [address] [place], [address] WBC Normal 4.4-11.0 [facility] Comment on above: Result Comment: Canc elled via OM: Order cancelled - Patient discharged Performed By: #### L 100.0100, L500.2500 ####[facility] [address] [place], [address] Absolute lymphocyte countOrd ered By: Otilia Gosscristofer on 03-26-2025 Lymphocytes Auto (Unsp spec) [#/Vol] 0.81 10*3/uL Low 0.83-4.51 [facility] Anion gap in Serum or Plasma Ordered By: Otiliashanon Hernandez on 03-26-2025 Anion gap [Moles/Vol] 7 mmol/L 5-15 [facility] Automated blood erythrocyte countOrdered By: Otiliashanon Hernandez on 03-26-2025 RBC (Bld) [#/Vol] 3.78 10*6/uL Low 4.2-5.4 [facility] Comment on above: Performed By: #### L 500.2500, L100.0100 ####[facility] [address] [place], [address] Automated blood hematocrit ( percentage)Ordered By: Otiliashanon Hernandez on 03-26-2025 Hematocrit (Bld) [Volume fraction] 35.8 % Low 37-47 [facility] Comment on above: Performed By: #### L 500.2500, L100.0100 ####[facility] [address] [place], [address] Automated lymphocyte count a s percentage of total leukocytesOrdered By: Otiliashanon Hernandez on 03-26-2025 Lymphocytes/100 WBC Auto (Unsp spec) 9.6 % Low 19-41 [facility] BUN/creatinine ratioOrdered By: Otiliashanon Hernandez on 03-26-2025 Urea nitrogen/Creatinine [Mass ratio] 26.4 mg/mg High 10-20 [facility] Basic Metabolic Profile (BMP )on 03-26-2025 BUN/CRE 26.4 RATIO High - [facility] Comment on above: Performed By: #### L 500.2500, L100.0100 ####[facility] [address] [place], [address] ECRCL 79.11 ml/min Normal 50-250 [facility] Comment on above: Performed By: #### L 500.2500, L100.0100 ####[facility] [address] [place], [address] GAP 7 Normal 5-15 [facility] Comment on above: Performed By: #### L 500.2500, L100.0100 ####[facility] [address] [place], [address] Potassium [Moles/Vol] 3.9 mmol/L Normal 3.3-5.1 [facility] Comment on above: Performed By: #### L 500.2500, L100.0100 ####[facility] [address] [place], [address] Basophil percentageOrdered B y: Otilia Hernandez on 03-26-2025 Basophils/100 WBC (Bld) 0.2 % Normal 0-1 [facility] Comment on above: Performed By: #### L 500.2500, L100.0100 ####[facility] [address] [place], [address] CBC W/Diff, Automatedon 03-04 Absolute Lymph 0.81 X10 3/uL Low 0.83-4.51 [facility] Comment on above: Performed By: #### L 500.2500, L100.0100 ####[facility] [address] [place], [address] Absolute Neut 6.6 X10 3/uL Normal 2.0-7.7 [facility] Comment on above: Performed By: #### L 500.2500, L100.0100 ####[facility] [address] [place], [address] IG% 0.600 Normal 0.0-0.9 [facility] Comment on above: Result Comment: IG% - Immature Granulocytes (promyelocytes, myelocytes andmetamyelocytes) > 1% indicates that a LEFT SHIFT is Present. Performed By: #### L 500.2500, L100.0100 ####[facility] [address] [place], [address] Lymphocytes/100 WBC (Bld) 9.6 % Low 19-41 [facility] Comment on above: Performed By: #### L 500.2500, L100.0100 ####[facility] [address] [place], [address] MCHC (RBC) [Mass/Vol] 31.0 g/dL Low 32-36 [facility] Comment on above: Performed By: #### L 500.2500, L100.0100 ####[facility] [address] [place], [address] Nucleated RBC (Bld) [#/Vol] 0 10*3/uL Normal 0-5 [facility] Comment on above: Performed By: #### L 500.2500, L100.0100 ####[facility] [address] [place], [address] Platelet mean volume (Bld) [Entitic vol] 9.7 fL Normal 6.2-12.0 [facility] Comment on above: Performed By: #### L 500.2500, L100.0100 ####[facility] [address] [place], [address] RDW SD 48.9 fl High 35.1-43.9 [facility] Comment on above: Performed By: #### L 500.2500, L100.0100 ####[facility] [address] [place], [address] Carbon dioxide, total [Moles /volume] in Central venous bloodOrdered By: Otilia Hernandez on 03-26-2025 CO2 [Moles/Vol] 38.2 mmol/L High 21.0-32.0 [facility] Comment on above: Performed By: #### L 500.2500, L100.0100 ####[facility] [address] [place], [address] Chloride assayOrdered By: Emelina Hernandez on 03-26-2025 Chloride [Moles/Vol] 94 mmol/L Low 98-108 [facility] Comment on above: Performed By: #### L 500.2500, L100.0100 ####[facility] [address] [place], [address] Eosinophil percentageOrdered By: Otilia Hernandez on 03-26-2025 Eosinophils/100 WBC (Bld) 1.5 % Normal 0-5 [facility] Comment on above: Performed By: #### L 500.2500, L100.0100 ####[facility] [address] [place], [address] Erythrocyte distribution wid th ratioOrdered By: Oitlia Hernandez on 03-26-2025 Erythrocyte distribution width (RBC) [Ratio] 14.1 % Normal 11.6-14.6 [facility] Comment on above: Performed By: #### L 500.2500, L100.0100 ####[facility] [address] [place], [address] Erythrocyte distribution wid th standard deviationOrdered By: Otilia Hernandez on 03-26-2025 Erythrocyte distribution width (RBC) [Ratio] 48.9 fl High 35.1-43.9 [facility] Glomerular filtration rate ( GFR) estimation/1.73 sq m using serum, plasma, or whole bOrdered By: Otilia Hernandez on 03-26-2025 GFR/1.73 sq M.predicted among non-blacks MDRD (S/P/Bld) [Vol rate/Area] 90 mL/min/{1.73_m2} Normal >60 [facility] Comment on above: Result Comment: mL/m in/1.73m2 CKD-EPI Creatinine Equation (2020) Performed By: #### L 500.2500, L100.0100 ####[facility] [address] [place], [address] Hemoglobin measurementOrdere d By: Otilia Gosscristofer on 03-26-2025 Hemoglobin (Bld) [Mass/Vol] 11.1 g/dL Low 12.0-15.0 [facility] Comment on above: Performed By: #### L 500.2500, L100.0100 ####[facility] [address] [place], [address] Immature granulocytes/100 WB C Auto (Bld)Ordered By: Otiliashanon Hernandez on 03-26-2025 Immature granulocytes/100 WBC (Bld) 0.600 % 0.0-0.9 [facility] MCV (mean corpuscular volume ) determinationOrdered By: Otilia Hernandez on 03-26-2025 MCV (RBC) [Entitic vol] 94.7 fL Normal 81-99 [facility] Comment on above: Performed By: #### L 500.2500, L100.0100 ####[facility] [address] [place], [address] Mean corpuscular hemoglobin (MCH) determinationOrdered By: Otiliashanon Hernandez on 03-26-2025 MCH (RBC) [Entitic mass] 29.4 pg Normal 27.0-32.0 [facility] Comment on above: Performed By: #### L 500.2500, L100.0100 ####[facility] [address] [place], [address] Monocyte percentageOrdered B y: Otilia Hernandez on 03-26-2025 Monocytes/100 WBC (Bld) 10.1 % High 0-10 [facility] Comment on above: Performed By: #### L 500.2500, L100.0100 ####[facility] [address] [place], [address] Neutrophil percentageOrdered By: Otilia Hernandez on 03-26-2025 Neutrophils/100 WBC (Bld) 78.0 % High 47-70 [facility] Comment on above: Performed By: #### L 500.2500, L100.0100 ####[facility] [address] [place], [address] Platelet countOrdered By: Emelina devine David on 03-26-2025 Platelets (Bld) [#/Vol] 169 10*3/uL Normal 150-450 [facility] Comment on above: Performed By: #### L 500.2500, L100.0100 ####[facility] [address] [place], [address] Potassium measurement (mass/ volume)Ordered By: Otiliashanon Hernandez on 03-26-2025 Potassium (Unsp spec) [Mass/Vol] 3.9 mmol/L 3.3-5.1 [facility] Serum creatinine measurement (mass/volume)Ordered By: Otilia Hernandez on 03-26-2025 Creatinine [Mass/Vol] 0.68 mg/dL Low 0.70-1.20 [facility] Comment on above: Performed By: #### L 500.2500, L100.0100 ####[facility] [address] [place], [address] Serum glucose measurement (m ass/volume)Ordered By: Otiliashanon Hernandez on 03-26-2025 Glucose [Mass/Vol] 98 mg/dL Normal 70-99 [facility] Comment on above: Performed By: #### L 500.2500, L100.0100 ####[facility] [address] [place], [address] Serum or plasma calcium lisa urement (mass/volume)Ordered By: Otiliashanon Hernandez on 03-26-2025 Calcium [Mass/Vol] 8.7 mg/dL Normal 7.6-11.0 [facility] Comment on above: Performed By: #### L 500.2500, L100.0100 ####[facility] [address] [place], [address] Serum or plasma urea nitroge n measurement (mass/volume)Ordered By: Otilia Hernandez on 03-26-2025 Urea nitrogen [Mass/Vol] 18 mg/dL Normal 4-19 [facility] Comment on above: Performed By: #### L 500.2500, L100.0100 ####[facility] [address] [place], [address] Sodium levelOrdered By: Otilia Hernandez on 03-26-2025 Sodium [Moles/Vol] 139 mmol/L Normal 133-145 [facility] Comment on above: Performed By: #### L 500.2500, L100.0100 ####[facility] [address] [place], [address] White blood cell (WBC) count Ordered By: Otilia Hernandez on 03-26-2025 WBC (Bld) [#/Vol] 8.5 10*3/uL Normal 4.4-11.0 [facility] Comment on above: Performed By: #### L 500.2500, L100.0100 ####[facility] [address] [place], [address] Basic Metabolic Profile (BMP )on 03-25-2025 BUN/CRE 27.9 RATIO High 10-20 [facility] Comment on above: Performed By: #### L 500.2500, L100.0100 ####[facility] [address] [place], [address] Calcium [Mass/Vol] 8.8 mg/dL Normal 7.6-11.0 [facility] Comment on above: Performed By: #### L 500.2500, L100.0100 ####[facility] [address] [place], [address] Chloride [Moles/Vol] 99 mmol/L Normal 98-108 [facility] Comment on above: Performed By: #### L 500.2500, L100.0100 ####[facility] [address] [place], [address] CO2 [Moles/Vol] 35.9 mmol/L High 21.0-32.0 [facility] Comment on above: Performed By: #### L 500.2500, L100.0100 ####[facility] [address] [place], [address] Creatinine [Mass/Vol] 0.72 mg/dL Normal 0.70-1.20 [facility] Comment on above: Performed By: #### L 500.2500, L100.0100 ####[facility] [address] [place], [address] ECRCL 80.24 ml/min Normal 50-250 [facility] Comment on above: Performed By: #### L 500.2500, L100.0100 ####[facility] [address] [place], [address] GAP 5 Normal 5-15 [facility] Comment on above: Performed By: #### L 500.2500, L100.0100 ####[facility] [address] [place], [address] GFR/1.73 sq M.predicted among non-blacks MDRD (S/P/Bld) [Vol rate/Area] 86 mL/min/{1.73_m2} Normal >60 [facility] Comment on above: Result Comment: mL/m in/1.73m2 CKD-EPI Creatinine Equation (2020) Performed By: #### L 500.2500, L100.0100 ####[facility] [address] [place], [address] Glucose [Mass/Vol] 105 mg/dL High 70-99 [facility] Comment on above: Performed By: #### L 500.2500, L100.0100 ####[facility] [address] [place], [address] Potassium [Moles/Vol] 4.5 mmol/L Normal 3.3-5.1 [facility] Comment on above: Performed By: #### L 500.2500, L100.0100 ####[facility] [address] [place], [address] Sodium [Moles/Vol] 140 mmol/L Normal 133-145 [facility] Comment on above: Performed By: #### L 500.2500, L100.0100 ####[facility] [address] [place], [address] Urea nitrogen [Mass/Vol] 20 mg/dL High 4-19 [facility] Comment on above: Performed By: #### L 500.2500, L100.0100 ####[facility] [address] [place], [address] CBC W/Diff, Automatedon 03-04-2024 Absolute Lymph 0.86 X10 3/uL Normal 0.83-4.51 [facility] Comment on above: Performed By: #### L 500.2500, L100.0100 ####[facility] [address] [place], [address] Absolute Neut 7.2 X10 3/uL Normal 2.0-7.7 [facility] Comment on above: Performed By: #### L 500.2500, L100.0100 ####[facility] [address] [place], [address] Basophils/100 WBC (Bld) 0.2 % Normal 0-1 [facility] Comment on above: Performed By: #### L 500.2500, L100.0100 ####[facility] [address] [place], [address] Eosinophils/100 WBC (Bld) 1.4 % Normal 0-5 [facility] Comment on above: Performed By: #### L 500.2500, L100.0100 ####[facility] [address] [place], [address] Erythrocyte distribution width (RBC) [Ratio] 14.6 % Normal 11.6-14.6 [facility] Comment on above: Performed By: #### L 500.2500, L100.0100 ####[facility] [address] [place], [address] Hematocrit (Bld) [Volume fraction] 36.8 % Low 37-47 [facility] Comment on above: Performed By: #### L 500.2500, L100.0100 ####[facility] [address] [place], [address] Hemoglobin (Bld) [Mass/Vol] 11.3 g/dL Low 12.0-15.0 [facility] Comment on above: Performed By: #### L 500.2500, L100.0100 ####[facility] [address] [place], [address] IG% 0.500 Normal 0.0-0.9 [facility] Comment on above: Result Comment: IG% - Immature Granulocytes (promyelocytes, myelocytes andmetamyelocytes) > 1% indicates that a LEFT SHIFT is Present. Performed By: #### L 500.2500, L100.0100 ####[facility] [address] [place], [address] Lymphocytes/100 WBC (Bld) 9.4 % Low 19-41 [facility] Comment on above: Performed By: #### L 500.2500, L100.0100 ####[facility] [address] [place], [address] MCH (RBC) [Entitic mass] 30.2 pg Normal 27.0-32.0 [facility] Comment on above: Performed By: #### L 500.2500, L100.0100 ####[facility] [address] [place], [address] MCHC (RBC) [Mass/Vol] 30.7 g/dL Low 32-36 [facility] Comment on above: Performed By: #### L 500.2500, L100.0100 ####[facility] [address] [place], [address] MCV (RBC) [Entitic vol] 98.4 fL Normal 81-99 [facility] Comment on above: Performed By: #### L 500.2500, L100.0100 ####[facility] [address] [place], [address] Monocytes/100 WBC (Bld) 9.3 % Normal 0-10 [facility] Comment on above: Performed By: #### L 500.2500, L100.0100 ####[facility] [address] [place], [address] Neutrophils/100 WBC (Bld) 79.2 % High 47-70 [facility] Comment on above: Performed By: #### L 500.2500, L100.0100 ####[facility] [address] [place], [address] Nucleated RBC (Bld) [#/Vol] 0 10*3/uL Normal 0-5 [facility] Comment on above: Performed By: #### L 500.2500, L100.0100 ####[facility] [address] [place], [address] Platelet mean volume (Bld) [Entitic vol] 10.1 fL Normal 6.2-12.0 [facility] Comment on above: Performed By: #### L 500.2500, L100.0100 ####[facility] [address] [place], [address] Platelets (Bld) [#/Vol] 143 10*3/uL Low 150-450 [facility] Comment on above: Performed By: #### L 500.2500, L100.0100 ####[facility] [address] [place], [address] RBC (Bld) [#/Vol] 3.74 10*6/uL Low 4.2-5.4 [facility] Comment on above: Performed By: #### L 500.2500, L100.0100 ####[facility] [address] [place], [address] RDW SD 52.7 fl High 35.1-43.9 [facility] Comment on above: Performed By: #### L 500.2500, L100.0100 ####[facility] [address] [place], [address] WBC (Bld) [#/Vol] 9.1 10*3/uL Normal 4.4-11.0 [facility] Comment on above: Performed By: #### L 500.2500, L100.0100 ####[facility] [address] [place], [address] Basic Metabolic Profile (BMP )on 03-24-2025 BUN/CRE 37.2 RATIO High 10-20 [facility] Comment on above: Performed By: #### L 100.0100, L500.2500 ####[facility] [address] [place], [address] Calcium [Mass/Vol] 8.9 mg/dL Normal 7.6-11.0 [facility] Comment on above: Performed By: #### L 100.0100, L500.2500 ####[facility] [address] [place], [address] Chloride [Moles/Vol] 101 mmol/L Normal 98-108 [facility] Comment on above: Performed By: #### L 100.0100, L500.2500 ####[facility] [address] [place], [address] CO2 [Moles/Vol] 32.9 mmol/L High 21.0-32.0 [facility] Comment on above: Performed By: #### L 100.0100, L500.2500 ####[facility] [address] [place], [address] Creatinine [Mass/Vol] 0.83 mg/dL Normal 0.70-1.20 [facility] Comment on above: Performed By: #### L 100.0100, L500.2500 ####[facility] [address] [place], [address] ECRCL 77.67 ml/min Normal 50-250 [facility] Comment on above: Performed By: #### L 100.0100, L500.2500 ####[facility] [address] [place], [address] GAP 7 Normal 5-15 [facility] Comment on above: Performed By: #### L 100.0100, L500.2500 ####[facility] [address] [place], [address] GFR/1.73 sq M.predicted among non-blacks MDRD (S/P/Bld) [Vol rate/Area] 73 mL/min/{1.73_m2} Normal >60 [facility] Comment on above: Result Comment: mL/m in/1.73m2 CKD-EPI Creatinine Equation (2020) Performed By: #### L 100.0100, L500.2500 ####[facility] [address] [place], [address] Glucose [Mass/Vol] 109 mg/dL High 70-99 [facility] Comment on above: Performed By: #### L 100.0100, L500.2500 ####[facility] [address] [place], [address] Potassium [Moles/Vol] 4.3 mmol/L Normal 3.3-5.1 [facility] Comment on above: Performed By: #### L 100.0100, L500.2500 ####[facility] [address] [place], [address] Sodium [Moles/Vol] 141 mmol/L Normal 133-145 [facility] Comment on above: Performed By: #### L 100.0100, L500.2500 ####[facility] [address] [place], [address] Urea nitrogen [Mass/Vol] 31 mg/dL High 4-19 [facility] Comment on above: Performed By: #### L 100.0100, L500.2500 ####[facility] [address] [place], [address] CBC W/Diff, Automatedon 03-04-2024 Absolute Lymph 1.03 X10 3/uL Normal 0.83-4.51 [facility] Comment on above: Performed By: #### L 100.0100, L500.2500 ####[facility] [address] [place], [address] Absolute Neut 8.0 X10 3/uL High 2.0-7.7 [facility] Comment on above: Performed By: #### L 100.0100, L500.2500 ####[facility] [address] [place], [address] Basophils/100 WBC (Bld) 0.2 % Normal 0-1 [facility] Comment on above: Performed By: #### L 100.0100, L500.2500 ####[facility] [address] [place], [address] Eosinophils/100 WBC (Bld) 2.0 % Normal 0-5 [facility] Comment on above: Performed By: #### L 100.0100, L500.2500 ####[facility] [address] [place], [address] Erythrocyte distribution width (RBC) [Ratio] 15.1 % High 11.6-14.6 [facility] Comment on above: Performed By: #### L 100.0100, L500.2500 ####[facility] [address] [place], [address] Hematocrit (Bld) [Volume fraction] 38.0 % Normal 37-47 [facility] Comment on above: Performed By: #### L 100.0100, L500.2500 ####[facility] [address] [place], [address] Hemoglobin (Bld) [Mass/Vol] 11.5 g/dL Low 12.0-15.0 [facility] Comment on above: Performed By: #### L 100.0100, L500.2500 ####[facility] [address] [place], [address] IG% 0.500 Normal 0.0-0.9 [facility] Comment on above: Result Comment: IG% - Immature Granulocytes (promyelocytes, myelocytes andmetamyelocytes) > 1% indicates that a LEFT SHIFT is Present. Performed By: #### L 100.0100, L500.2500 ####[facility] [address] [place], [address] Lymphocytes/100 WBC (Bld) 9.8 % Low 19-41 [facility] Comment on above: Performed By: #### L 100.0100, L500.2500 ####[facility] [address] [place], [address] MCH (RBC) [Entitic mass] 29.9 pg Normal 27.0-32.0 [facility] Comment on above: Performed By: #### L 100.0100, L500.2500 ####[facility] [address] [place], [address] MCHC (RBC) [Mass/Vol] 30.3 g/dL Low 32-36 [facility] Comment on above: Performed By: #### L 100.0100, L500.2500 ####[facility] [address] [place], [address] MCV (RBC) [Entitic vol] 98.7 fL Normal 81-99 [facility] Comment on above: Performed By: #### L 100.0100, L500.2500 ####[facility] [address] [place], [address] Monocytes/100 WBC (Bld) 12.2 % High 0-10 [facility] Comment on above: Performed By: #### L 100.0100, L500.2500 ####[facility] [address] [place], [address] Neutrophils/100 WBC (Bld) 75.3 % High 47-70 [facility] Comment on above: Performed By: #### L 100.0100, L500.2500 ####[facility] [address] [place], [address] Nucleated RBC (Bld) [#/Vol] 0 10*3/uL Normal 0-5 [facility] Comment on above: Performed By: #### L 100.0100, L500.2500 ####[facility] [address] [place], [address] Platelet mean volume (Bld) [Entitic vol] 10.3 fL Normal 6.2-12.0 [facility] Comment on above: Performed By: #### L 100.0100, L500.2500 ####[facility] [address] [place], [address] Platelets (Bld) [#/Vol] 152 10*3/uL Normal 150-450 [facility] Comment on above: Performed By: #### L 100.0100, L500.2500 ####[facility] [address] [place], [address] RBC (Bld) [#/Vol] 3.85 10*6/uL Low 4.2-5.4 [facility] Comment on above: Performed By: #### L 100.0100, L500.2500 ####[facility] [address] [place], [address] RDW SD 54.4 fl High 35.1-43.9 [facility] Comment on above: Performed By: #### L 100.0100, L500.2500 ####[facility] [address] [place], [address] WBC (Bld) [#/Vol] 10.6 10*3/uL Normal 4.4-11.0 [facility] Comment on above: Performed By: #### L 100.0100, L500.2500 ####[facility] [address] [place], [address] Basic Metabolic Profile (BMP )on 03-23-2025 BUN/CRE 33.2 RATIO High 10-20 [facility] Comment on above: Performed By: #### L 100.0100, L500.2500 ####[facility] [address] [place], [address] Calcium [Mass/Vol] 8.6 mg/dL Normal 7.6-11.0 [facility] Comment on above: Performed By: #### L 100.0100, L500.2500 ####[facility] [address] [place], [address] Chloride [Moles/Vol] 105 mmol/L Normal 98-108 [facility] Comment on above: Performed By: #### L 100.0100, L500.2500 ####[facility] [address] [place], [address] CO2 [Moles/Vol] 32.2 mmol/L High 21.0-32.0 [facility] Comment on above: Performed By: #### L 100.0100, L500.2500 ####[facility] [address] [place], [address] Creatinine [Mass/Vol] 1.21 mg/dL High 0.70-1.20 [facility] Comment on above: Performed By: #### L 100.0100, L500.2500 ####[facility] [address] [place], [address] ECRCL 53.50 ml/min Normal 50-250 [facility] Comment on above: Performed By: #### L 100.0100, L500.2500 ####[facility] [address] [place], [address] GAP 9 Normal 5-15 [facility] Comment on above: Performed By: #### L 100.0100, L500.2500 ####[facility] [address] [place], [address] GFR/1.73 sq M.predicted among non-blacks MDRD (S/P/Bld) [Vol rate/Area] 46 mL/min/{1.73_m2} Low >60 [facility] Comment on above: Result Comment: mL/m in/1.73m2 CKD-EPI Creatinine Equation (2020) Performed By: #### L 100.0100, L500.2500 ####[facility] [address] [place], [address] Glucose [Mass/Vol] 90 mg/dL Normal 70-99 [facility] Comment on above: Performed By: #### L 100.0100, L500.2500 ####[facility] [address] [place], [address] Potassium [Moles/Vol] 4.0 mmol/L Normal 3.3-5.1 [facility] Comment on above: Result Comment: Hemo lysis present, Results??could be affected.?? Performed By: #### L 100.0100, L500.2500 ####[facility] [address] [place], [address] Sodium [Moles/Vol] 147 mmol/L High 133-145 [facility] Comment on above: Performed By: #### L 100.0100, L500.2500 ####[facility] [address] [place], [address] Urea nitrogen [Mass/Vol] 40 mg/dL High 4-19 [facility] Comment on above: Performed By: #### L 100.0100, L500.2500 ####[facility] [address] [place], [address] Bedside Glucoseon 03-23-2024 FINGERSTICK GLU 118 mg/dL High 74-106 [facility] Comment on above: Result Comment: ROSA ISELA BUSTAMANTE OF PATIENT CARE PER NURSING PROTOCOL Performed By: #### L 501.080 ####[facility] [address] [place], [address] CBC W/Diff, Automatedon 03-04 Absolute Lymph 1.83 X10 3/uL Normal 0.83-4.51 [facility] Comment on above: Performed By: #### L 100.0100, L500.2500 ####[facility] [address] [place], [address] Absolute Neut 8.5 X10 3/uL High 2.0-7.7 [facility] Comment on above: Performed By: #### L 100.0100, L500.2500 ####[facility] [address] [place], [address] Basophils/100 WBC (Bld) 0.2 % Normal 0-1 [facility] Comment on above: Performed By: #### L 100.0100, L500.2500 ####[facility] [address] [place], [address] Eosinophils/100 WBC (Bld) 1.6 % Normal 0-5 [facility] Comment on above: Performed By: #### L 100.0100, L500.2500 ####[facility] [address] [place], [address] Erythrocyte distribution width (RBC) [Ratio] 15.1 % High 11.6-14.6 [facility] Comment on above: Performed By: #### L 100.0100, L500.2500 ####[facility] [address] [place], [address] Hematocrit (Bld) [Volume fraction] 37.5 % Normal 37-47 [facility] Comment on above: Performed By: #### L 100.0100, L500.2500 ####[facility] [address] [place], [address] Hemoglobin (Bld) [Mass/Vol] 11.5 g/dL Low 12.0-15.0 [facility] Comment on above: Performed By: #### L 100.0100, L500.2500 ####[facility] [address] [place], [address] IG% 0.500 Normal 0.0-0.9 [facility] Comment on above: Result Comment: IG% - Immature Granulocytes (promyelocytes, myelocytes andmetamyelocytes) > 1% indicates that a LEFT SHIFT is Present. Performed By: #### L 100.0100, L500.2500 ####[facility] [address] [place], [address] Lymphocytes/100 WBC (Bld) 15.5 % Low 19-41 [facility] Comment on above: Performed By: #### L 100.0100, L500.2500 ####[facility] [address] [place], [address] MCH (RBC) [Entitic mass] 29.6 pg Normal 27.0-32.0 [facility] Comment on above: Performed By: #### L 100.0100, L500.2500 ####[facility] [address] [place], [address] MCHC (RBC) [Mass/Vol] 30.7 g/dL Low 32-36 [facility] Comment on above: Performed By: #### L 100.0100, L500.2500 ####[facility] [address] [place], [address] MCV (RBC) [Entitic vol] 96.6 fL Normal 81-99 [facility] Comment on above: Performed By: #### L 100.0100, L500.2500 ####[facility] [address] [place], [address] Monocytes/100 WBC (Bld) 9.8 % Normal 0-10 [facility] Comment on above: Performed By: #### L 100.0100, L500.2500 ####[facility] [address] [place], [address] Neutrophils/100 WBC (Bld) 72.4 % High 47-70 [facility] Comment on above: Performed By: #### L 100.0100, L500.2500 ####[facility] [address] [place], [address] Nucleated RBC (Bld) [#/Vol] 0 10*3/uL Normal 0-5 [facility] Comment on above: Performed By: #### L 100.0100, L500.2500 ####[facility] [address] [place], [address] Platelet mean volume (Bld) [Entitic vol] 10.6 fL Normal 6.2-12.0 [facility] Comment on above: Performed By: #### L 100.0100, L500.2500 ####[facility] [address] [place], [address] Platelets (Bld) [#/Vol] 153 10*3/uL Normal 150-450 [facility] Comment on above: Performed By: #### L 100.0100, L500.2500 ####[facility] [address] [place], [address] RBC (Bld) [#/Vol] 3.88 10*6/uL Low 4.2-5.4 [facility] Comment on above: Performed By: #### L 100.0100, L500.2500 ####[facility] [address] [place], [address] RDW SD 53.0 fl High 35.1-43.9 [facility] Comment on above: Performed By: #### L 100.0100, L500.2500 ####[facility] [address] [place], [address] WBC (Bld) [#/Vol] 11.8 10*3/uL High 4.4-11.0 [facility] Comment on above: Performed By: #### L 100.0100, L500.2500 ####[facility] [address] [place], [address] Culture, Blood (WB)on 2024 CUB Blood cultures x2, f rom two different sites No growth in 5 days. Normal [facility] Comment on above: Performed By: #### L 300.3900, L300.4310, L503.6005, M200.1000 ####[facility] [address] [place], [address] Basic Metabolic Profile (BMP )on 03-22-2025 BUN/CRE 37.1 RATIO High 10-20 [facility] Comment on above: Performed By: #### L 100.0100, L500.2500 ####[facility] [address] [place], [address] Calcium [Mass/Vol] 8.6 mg/dL Normal 7.6-11.0 [facility] Comment on above: Performed By: #### L 100.0100, L500.2500 ####[facility] [address] [place], [address] Chloride [Moles/Vol] 103 mmol/L Normal 98-108 [facility] Comment on above: Performed By: #### L 100.0100, L500.2500 ####[facility] [address] [place], [address] CO2 [Moles/Vol] 32.5 mmol/L High 21.0-32.0 [facility] Comment on above: Performed By: #### L 100.0100, L500.2500 ####[facility] [address] [place], [address] Creatinine [Mass/Vol] 1.10 mg/dL Normal 0.70-1.20 [facility] Comment on above: Performed By: #### L 100.0100, L500.2500 ####[facility] [address] [place], [address] ECRCL 56.98 ml/min Normal 50-250 [facility] Comment on above: Performed By: #### L 100.0100, L500.2500 ####[facility] [address] [place], [address] GAP 7 Normal 5-15 [facility] Comment on above: Performed By: #### L 100.0100, L500.2500 ####[facility] [address] [place], [address] GFR/1.73 sq M.predicted among non-blacks MDRD (S/P/Bld) [Vol rate/Area] 52 mL/min/{1.73_m2} Low >60 [facility] Comment on above: Result Comment: mL/m in/1.73m2 CKD-EPI Creatinine Equation (2020) Performed By: #### L 100.0100, L500.2500 ####[facility] [address] [place], [address] Glucose [Mass/Vol] 122 mg/dL High 70-99 [facility] Comment on above: Performed By: #### L 100.0100, L500.2500 ####[facility] [address] [place], [address] Potassium [Moles/Vol] 3.6 mmol/L Normal 3.3-5.1 [facility] Comment on above: Performed By: #### L 100.0100, L500.2500 ####[facility] [address] [place], [address] Sodium [Moles/Vol] 142 mmol/L Normal 133-145 [facility] Comment on above: Performed By: #### L 100.0100, L500.2500 ####[facility] [address] [place], [address] Urea nitrogen [Mass/Vol] 41 mg/dL High 4-19 [facility] Comment on above: Performed By: #### L 100.0100, L500.2500 ####[facility] [address] [place], [address] CBC W/Diff, Automatedon 09-2 0-2025 Absolute Lymph 0.61 X10 3/uL Low 0.83-4.51 [facility] Comment on above: Performed By: #### L 100.0100, L500.2500 ####[facility] [address] [place], [address] Absolute Neut 10.8 X10 3/uL High 2.0-7.7 [facility] Comment on above: Performed By: #### L 100.0100, L500.2500 ####[facility] [address] [place], [address] Basophils/100 WBC (Bld) 0.1 % Normal 0-1 [facility] Comment on above: Performed By: #### L 100.0100, L500.2500 ####[facility] [address] [place], [address] Eosinophils/100 WBC (Bld) 0.0 % Normal 0-5 [facility] Comment on above: Performed By: #### L 100.0100, L500.2500 ####[facility] [address] [place], [address] Erythrocyte distribution width (RBC) [Ratio] 15.0 % High 11.6-14.6 [facility] Comment on above: Performed By: #### L 100.0100, L500.2500 ####[facility] [address] [place], [address] Hematocrit (Bld) [Volume fraction] 37.2 % Normal 37-47 [facility] Comment on above: Performed By: #### L 100.0100, L500.2500 ####[facility] [address] [place], [address] Hemoglobin (Bld) [Mass/Vol] 11.7 g/dL Low 12.0-15.0 [facility] Comment on above: Performed By: #### L 100.0100, L500.2500 ####[facility] [address] [place], [address] IG% 0.600 Normal 0.0-0.9 [facility] Comment on above: Result Comment: IG% - Immature Granulocytes (promyelocytes, myelocytes andmetamyelocytes) > 1% indicates that a LEFT SHIFT is Present. Performed By: #### L 100.0100, L500.2500 ####[facility] [address] [place], [address] Lymphocytes/100 WBC (Bld) 5.1 % Low 19-41 [facility] Comment on above: Performed By: #### L 100.0100, L500.2500 ####[facility] [address] [place], [address] MCH (RBC) [Entitic mass] 29.8 pg Normal 27.0-32.0 [facility] Comment on above: Performed By: #### L 100.0100, L500.2500 ####[facility] [address] [place], [address] MCHC (RBC) [Mass/Vol] 31.5 g/dL Low 32-36 [facility] Comment on above: Performed By: #### L 100.0100, L500.2500 ####[facility] [address] [place], [address] MCV (RBC) [Entitic vol] 94.7 fL Normal 81-99 [facility] Comment on above: Performed By: #### L 100.0100, L500.2500 ####[facility] [address] [place], [address] Monocytes/100 WBC (Bld) 4.1 % Normal 0-10 [facility] Comment on above: Performed By: #### L 100.0100, L500.2500 ####[facility] [address] [place], [address] Neutrophils/100 WBC (Bld) 90.1 % High 47-70 [facility] Comment on above: Performed By: #### L 100.0100, L500.2500 ####[facility] [address] [place], [address] Nucleated RBC (Bld) [#/Vol] 0 10*3/uL Normal 0-5 [facility] Comment on above: Performed By: #### L 100.0100, L500.2500 ####[facility] [address] [place], [address] Platelet mean volume (Bld) [Entitic vol] 10.2 fL Normal 6.2-12.0 [facility] Comment on above: Performed By: #### L 100.0100, L500.2500 ####[facility] [address] [address] [place], [address] Platelets (Bld) [#/Vol] 146 10*3/uL Low 150-450 [facility] Comment on above: Performed By: #### L 100.0100, L500.2500 ####[facility] [address] [place], [address] RBC (Bld) [#/Vol] 3.93 10*6/uL Low 4.2-5.4 [facility] Comment on above: Performed By: #### L 100.0100, L500.2500 ####[facility] [address] [place], [address] RDW SD 52.0 fl High 35.1-43.9 [facility] Comment on above: Performed By: #### L 100.0100, L500.2500 ####[facility] [address] [place], [address] WBC (Bld) [#/Vol] 11.9 10*3/uL High 4.4-11.0 [facility] Comment on above: Performed By: #### L 100.0100, L500.2500 ####[facility] [address] [place], [address] Basic Metabolic Profile (BMP )on 03-21-2025 BUN/CRE 30.4 RATIO High 10-20 [facility] Comment on above: Performed By: #### L 500.2500, L100.0100 ####[facility] [address] [place], [address] Calcium [Mass/Vol] 8.5 mg/dL Normal 7.6-11.0 [facility] Comment on above: Performed By: #### L 500.2500, L100.0100 ####[facility] [address] [place], [address] Chloride [Moles/Vol] 100 mmol/L Normal 98-108 [facility] Comment on above: Performed By: #### L 500.2500, L100.0100 ####[facility] [address] [place], [address] CO2 [Moles/Vol] 30.8 mmol/L Normal 21.0-32.0 [facility] Comment on above: Performed By: #### L 500.2500, L100.0100 ####[facility] [address] [place], [address] Creatinine [Mass/Vol] 1.35 mg/dL High 0.70-1.20 [facility] Comment on above: Performed By: #### L 500.2500, L100.0100 ####[facility] [address] [place], [address] ECRCL 46.43 ml/min Low 50-250 [facility] Comment on above: Performed By: #### L 500.2500, L100.0100 ####[facility] [address] [place], [address] GAP 10 Normal 5-15 [facility] Comment on above: Performed By: #### L 500.2500, L100.0100 ####[facility] [address] [place], [address] GFR/1.73 sq M.predicted among non-blacks MDRD (S/P/Bld) [Vol rate/Area] 41 mL/min/{1.73_m2} Low >60 [facility] Comment on above: Result Comment: mL/m in/1.73m2 CKD-EPI Creatinine Equation (2020) Performed By: #### L 500.2500, L100.0100 ####[facility] [address] [place], [address] Glucose [Mass/Vol] 117 mg/dL High 70-99 [facility] Comment on above: Performed By: #### L 500.2500, L100.0100 ####[facility] [address] [place], [address] Potassium [Moles/Vol] 3.5 mmol/L Normal 3.3-5.1 [facility] Comment on above: Performed By: #### L 500.2500, L100.0100 ####[facility] [address] [place], [address] Sodium [Moles/Vol] 141 mmol/L Normal 133-145 [facility] Comment on above: Performed By: #### L 500.2500, L100.0100 ####[facility] [address] [place], [address] Urea nitrogen [Mass/Vol] 41 mg/dL High 4-19 [facility] Comment on above: Performed By: #### L 500.2500, L100.0100 ####[facility] [address] [place], [address] CBC W/Diff, Automatedon 09- Absolute Lymph 0.54 X10 3/uL Low 0.83-4.51 [facility] Comment on above: Performed By: #### L 500.2500, L100.0100 ####[facility] [address] [place], [address] Absolute Neut 14.3 X10 3/uL High 2.0-7.7 [facility] Comment on above: Performed By: #### L 500.2500, L100.0100 ####[facility] [address] [place], [address] Basophils/100 WBC (Bld) 0.3 % Normal 0-1 [facility] Comment on above: Performed By: #### L 500.2500, L100.0100 ####[facility] [address] [place], [address] Eosinophils/100 WBC (Bld) 0.1 % Normal 0-5 [facility] Comment on above: Performed By: #### L 500.2500, L100.0100 ####[facility] [address] [place], [address] Erythrocyte distribution width (RBC) [Ratio] 15.2 % High 11.6-14.6 [facility] Comment on above: Performed By: #### L 500.2500, L100.0100 ####[facility] [address] [place], [address] Hematocrit (Bld) [Volume fraction] 39.0 % Normal 37-47 [facility] Comment on above: Performed By: #### L 500.2500, L100.0100 ####[facility] [address] [place], [address] Hemoglobin (Bld) [Mass/Vol] 12.5 g/dL Normal 12.0-15.0 [facility] Comment on above: Performed By: #### L 500.2500, L100.0100 ####[facility] [address] [place], [address] IG% 0.800 Normal 0.0-0.9 [facility] Comment on above: Result Comment: IG% - Immature Granulocytes (promyelocytes, myelocytes andmetamyelocytes) > 1% indicates that a LEFT SHIFT is Present. Performed By: #### L 500.2500, L100.0100 ####[facility] [address] [place], [address] Lymphocytes/100 WBC (Bld) 3.4 % Low 19-41 [facility] Comment on above: Performed By: #### L 500.2500, L100.0100 ####[facility] [address] [place], [address] MCH (RBC) [Entitic mass] 29.6 pg Normal 27.0-32.0 [facility] Comment on above: Performed By: #### L 500.2500, L100.0100 ####[facility] [address] [place], [address] MCHC (RBC) [Mass/Vol] 32.1 g/dL Normal 32-36 [facility] Comment on above: Performed By: #### L 500.2500, L100.0100 ####[facility] [address] [place], [address] MCV (RBC) [Entitic vol] 92.2 fL Normal 81-99 [facility] Comment on above: Performed By: #### L 500.2500, L100.0100 ####[facility] [address] [place], [address] Monocytes/100 WBC (Bld) 4.6 % Normal 0-10 [facility] Comment on above: Performed By: #### L 500.2500, L100.0100 ####[facility] [address] [place], [address] Neutrophils/100 WBC (Bld) 90.8 % High 47-70 [facility] Comment on above: Performed By: #### L 500.2500, L100.0100 ####[facility] [address] [place], [address] Nucleated RBC (Bld) [#/Vol] 0 10*3/uL Normal 0-5 [facility] Comment on above: Performed By: #### L 500.2500, L100.0100 ####[facility] [address] [place], [address] Platelet mean volume (Bld) [Entitic vol] 10.1 fL Normal 6.2-12.0 [facility] Comment on above: Performed By: #### L 500.2500, L100.0100 ####[facility] [address] [place], [address] Platelets (Bld) [#/Vol] 171 10*3/uL Normal 150-450 [facility] Comment on above: Performed By: #### L 500.2500, L100.0100 ####[facility] [address] [place], [address] RBC (Bld) [#/Vol] 4.23 10*6/uL Normal 4.2-5.4 [facility] Comment on above: Performed By: #### L 500.2500, L100.0100 ####[facility] [address] [place], [address] RDW SD 50.4 fl High 35.1-43.9 [facility] Comment on above: Performed By: #### L 500.2500, L100.0100 ####[facility] [address] [place], [address] WBC (Bld) [#/Vol] 15.7 10*3/uL High 4.4-11.0 [facility] Comment on above: Performed By: #### L 500.2500, L100.0100 ####[facility] [address] [place], [address] Basic Metabolic Profile (BMP )on 03-20-2025 BUN/CRE 26.4 RATIO High 10-20 [facility] Comment on above: Performed By: #### L 100.0100, L500.2500 ####[facility] [address] [place], [address] Calcium [Mass/Vol] 9.0 mg/dL Normal 7.6-11.0 [facility] Comment on above: Performed By: #### L 100.0100, L500.2500 ####[facility] [address] [place], [address] Chloride [Moles/Vol] 95 mmol/L Low 98-108 [facility] Comment on above: Performed By: #### L 100.0100, L500.2500 ####[facility] [address] [place], [address] CO2 [Moles/Vol] 31.0 mmol/L Normal 21.0-32.0 [facility] Comment on above: Performed By: #### L 100.0100, L500.2500 ####[facility] [address] [place], [address] Creatinine [Mass/Vol] 1.44 mg/dL High 0.70-1.20 [facility] Comment on above: Performed By: #### L 100.0100, L500.2500 ####[facility] [address] [place], [address] ECRCL 43.32 ml/min Low 50-250 [facility] Comment on above: Performed By: #### L 100.0100, L500.2500 ####[facility] [address] [place], [address] GAP 13 Normal 5-15 [facility] Comment on above: Performed By: #### L 100.0100, L500.2500 ####[facility] [address] [place], [address] GFR/1.73 sq M.predicted among non-blacks MDRD (S/P/Bld) [Vol rate/Area] 38 mL/min/{1.73_m2} Low >60 [facility] Comment on above: Result Comment: mL/m in/1.73m2 CKD-EPI Creatinine Equation (2020) Performed By: #### L 100.0100, L500.2500 ####[facility] [address] [place], [address] Glucose [Mass/Vol] 129 mg/dL High 70-99 [facility] Comment on above: Performed By: #### L 100.0100, L500.2500 ####[facility] [address] [place], [address] Potassium [Moles/Vol] 3.6 mmol/L Normal 3.3-5.1 [facility] Comment on above: Performed By: #### L 100.0100, L500.2500 ####[facility] [address] [place], [address] Sodium [Moles/Vol] 139 mmol/L Normal 133-145 [facility] Comment on above: Performed By: #### L 100.0100, L500.2500 ####[facility] [address] [place], [address] Urea nitrogen [Mass/Vol] 38 mg/dL High 4-19 [facility] Comment on above: Performed By: #### L 100.0100, L500.2500 ####[facility] [address] [place], [address] CBC W/Diff, Automatedon 09- Absolute Lymph 0.55 X10 3/uL Low 0.83-4.51 [facility] Comment on above: Performed By: #### L 100.0100, L500.2500 ####[facility] [address] [place], [address] Absolute Neut 12.1 X10 3/uL High 2.0-7.7 [facility] Comment on above: Performed By: #### L 100.0100, L500.2500 ####[facility] [address] [place], [address] Basophils/100 WBC (Bld) 0.2 % Normal 0-1 [facility] Comment on above: Performed By: #### L 100.0100, L500.2500 ####[facility] [address] [place], [address] Eosinophils/100 WBC (Bld) 0.0 % Normal 0-5 [facility] Comment on above: Performed By: #### L 100.0100, L500.2500 ####[facility] [address] [place], [address] Erythrocyte distribution width (RBC) [Ratio] 14.9 % High 11.6-14.6 [facility] Comment on above: Performed By: #### L 100.0100, L500.2500 ####[facility] [address] [place], [address] Hematocrit (Bld) [Volume fraction] 44.0 % Normal 37-47 [facility] Comment on above: Performed By: #### L 100.0100, L500.2500 ####[facility] [address] [place], [address] Hemoglobin (Bld) [Mass/Vol] 14.9 g/dL Normal 12.0-15.0 [facility] Comment on above: Performed By: #### L 100.0100, L500.2500 ####[facility] [address] [place], [address] IG% 0.700 Normal 0.0-0.9 [facility] Comment on above: Result Comment: IG% - Immature Granulocytes (promyelocytes, myelocytes andmetamyelocytes) > 1% indicates that a LEFT SHIFT is Present. Performed By: #### L 100.0100, L500.2500 ####[facility] [address] [place], [address] Lymphocytes/100 WBC (Bld) 4.1 % Low 19-41 [facility] Comment on above: Performed By: #### L 100.0100, L500.2500 ####[facility] [address] [place], [address] MCH (RBC) [Entitic mass] 29.6 pg Normal 27.0-32.0 [facility] Comment on above: Performed By: #### L 100.0100, L500.2500 ####[facility] [address] [place], [address] MCHC (RBC) [Mass/Vol] 33.9 g/dL Normal 32-36 [facility] Comment on above: Performed By: #### L 100.0100, L500.2500 ####[facility] [address] [place], [address] MCV (RBC) [Entitic vol] 87.5 fL Normal 81-99 [facility] Comment on above: Performed By: #### L 100.0100, L500.2500 ####[facility] [address] [place], [address] Monocytes/100 WBC (Bld) 4.1 % Normal 0-10 [facility] Comment on above: Performed By: #### L 100.0100, L500.2500 ####[facility] [address] [place], [address] Neutrophils/100 WBC (Bld) 90.9 % High 47-70 [facility] Comment on above: Performed By: #### L 100.0100, L500.2500 ####[facility] [address] [place], [address] Nucleated RBC (Bld) [#/Vol] 0 10*3/uL Normal 0-5 [facility] Comment on above: Performed By: #### L 100.0100, L500.2500 ####[facility] [address] [place], [address] Platelet mean volume (Bld) [Entitic vol] 10.3 fL Normal 6.2-12.0 [facility] Comment on above: Performed By: #### L 100.0100, L500.2500 ####[facility] [address] [place], [address] Platelets (Bld) [#/Vol] 221 10*3/uL Normal 150-450 [facility] Comment on above: Performed By: #### L 100.0100, L500.2500 ####[facility] [address] [place], [address] RBC (Bld) [#/Vol] 5.03 10*6/uL Normal 4.2-5.4 [facility] Comment on above: Performed By: #### L 100.0100, L500.2500 ####[facility] [address] [place], [address] RDW SD 46.7 fl High 35.1-43.9 [facility] Comment on above: Performed By: #### L 100.0100, L500.2500 ####[facility] [address] [place], [address] WBC (Bld) [#/Vol] 13.3 10*3/uL High 4.4-11.0 [facility] Comment on above: Performed By: #### L 100.0100, L500.2500 ####[facility] [address] [place], [address] Consultation - Cardiologyon 03-20-2025 Consultation - Cardiology Normal [facility] Consultation - Infectious Dx on 03-20-2025 Consultation - Infectious Dx Normal [facility] Extremity Upper without Cont raon 03-20-2025 Extremity Upper without Contra Normal [facility] Respiratory Cultureon 2024 RESPC Mixed normal respira tory talya. No Streptococcus pneumoniae, beta-hemolytic Streptococcus or Staphylococcus aureus isolated. Normal [facility] Comment on above: Performed By: #### M 100.2400, M100.2000 ####[facility] [address] [place], [address] Trough vancomycin levelOrder ed By: mEili Lee on 03-20-2025 Vancomycin trough [Mass/Vol] 15.6 ug/mL High 5.0-15.0 [facility] Vancomycin, Trough Levelon 0 03-20-2025 VANCO, TROUGH 15.6 ug/mL High 5.0-15.0 [facility] Comment on above: Order Comment: 2129 Result Comment: Zackery mmended goal trough ranges are generally 10-15 mcg/mlfor less severe/complicated infections such as cellulitisor UTI and 15-20 mcg/ml for more severe/complicatedinfections such as bacteremia/sepsis, osteomyelitis,pneumonia or meningitis. Goal trough ranges should takeinto account indication, patient-specific factors andorganism ESPERANZA.VANCOMYCIN STANDARED DRUG THERAPY TROUGH LEVEL: 5.0 - 15.0 mg/LVANCOMYCIN HIGH INTENSITY THERAPY TROUGH LEVEL: 15.0 - 20.0 mg/LHigh Intensity therapy recommended for serious lifethreatening infections include:- Vherevblfn-Tmeenjrhlovg-Nhbxsbpjo (Ventilator/Healtcare Associated)-SepsisPLEASE CONTACT PHARMACY SERVICES (#9304) FOR INTERPRETATIONOF RESULTS. Performed By: #### L 501.8820 ####[facility] [address] [place], [address] Absolute lymphocyte countOrd ered By: Emili Lee on 03-19-2025 Lymphocytes Auto (Unsp spec) [#/Vol] 1.78 10*3/uL 0.83-4.51 [facility] Absolute neutrophil countOrd ered By: Emili Lee on 03-19-2025 Neutrophils (Bld) [#/Vol] 12.4 10*3/uL High 2.0-7.7 [facility] Anion gap in Serum or Plasma Ordered By: Emili Lee on 03-19-2025 Anion gap [Moles/Vol] 16 mmol/L High 5- [facility] BUN/creatinine ratioOrdered By: Emili Lee on 03-19-2025 Urea nitrogen/Creatinine [Mass ratio] 26.2 mg/mg High 10- [facility] Basophil percentageOrdered B y: Emili Lee on 03-19-2025 Basophils/100 WBC (Bld) 0.3 % Normal 0-1 [facility] Comment on above: Order Comment: RESUL T(S) PREVIOUSLY REPORTED ON MANUAL REQUISITION DURINGDOWNTIME. Performed By: #### L 100.0100, L500.4050 ####[facility] [address] [place], [address] Bilirubin, totalOrdered By: Emili Lee on 03-19-2025 Bilirubin [Mass/Vol] 0.56 mg/dL 0.00-1.30 [facility] Blood Gases by CPSon 025 Base excess Calc (Bld) [Moles/Vol] 10 mmol/L High -2 to +2 [facility] Comment on above: Performed By: #### L 9000.0800 ####[facility] [address] [place], [address] Blood Gas Type ART Normal [facility] Comment on above: Performed By: #### L 9000.0800 ####[facility] [address] [place], [address] CO2 [Moles/Vol] 36 mmol/L Normal [facility] Comment on above: Performed By: #### L 9000.0800 ####[facility] [address] [place], [address] FI02 35.0 Normal [facility] Comment on above: Performed By: #### L 9000.0800 ####[facility] [address] [place], [address] HCO3 (Bld) [Moles/Vol] 34.3 mmol/L High 22-26 [facility] Comment on above: Performed By: #### L 9000.0800 ####[facility] [address] [place], [address] Mode AC Normal [facility] Comment on above: Performed By: #### L 9000.0800 ####[facility] [address] [place], [address] O2 Delivery Dev Adult Vent Normal [facility] Comment on above: Performed By: #### L 9000.0800 ####[facility] [address] [place], [address] pCO2 48.5 mmHg High 35-45 [facility] Comment on above: Performed By: #### L 9000.0800 ####[facility] [address] [place], [address] PEEP 5 Normal [facility] Comment on above: Performed By: #### L 9000.0800 ####[facility] [address] [place], [address] pH (Bld) 7.46 [pH] High 7.35-7.45 [facility] Comment on above: Performed By: #### L 9000.0800 ####[facility] [address] [place], [address] PO2 63 mmHG Low 75-100 [facility] Comment on above: Performed By: #### L 9000.0800 ####[facility] [address] [place], [address] RR 14 Normal [facility] Comment on above: Performed By: #### L 9000.0800 ####[facility] [address] [place], [address] SITE Art Line Normal [facility] Comment on above: Performed By: #### L 9000.0800 ####[facility] [address] [place], [address] SO2 93 Low 95-99 [facility] Comment on above: Performed By: #### L 9000.0800 ####[facility] [address] [place], [address] Vt 400.0 mL Normal [facility] Comment on above: Performed By: #### L 9000.0800 ####[facility] [address] [place], [address] Blood base excess determinat ionOrdered By: Otilia Hernandez on 03-19-2025 Base excess Calc (BldV) [Moles/Vol] 10 mmol/L High -2-2 [facility] Blood bicarbonate measuremen tOrdered By: Otilia Hernandez on 03-19-2025 HCO3 (Bld) [Moles/Vol] 34.3 mmol/L High 22-26 [facility] Blood platelets count (numbe r/volume)Ordered By: Emili Lee on 03-19-2025 Platelets (Bld) [#/Vol] 244 10*3/uL Normal 150-450 [facility] Comment on above: Order Comment: RESUL T(S) PREVIOUSLY REPORTED ON MANUAL REQUISITION DURINGDOWNTIME. Performed By: #### L 100.0100, L500.4050 ####[facility] [address] [place], [address] CBC W/Diff, Automatedon 03-03 Absolute Lymph 1.78 X10 3/uL Normal 0.83-4.51 [facility] Comment on above: Order Comment: RESUL T(S) PREVIOUSLY REPORTED ON MANUAL REQUISITION DURINGDOWNTIME. Performed By: #### L 100.0100, L500.4050 ####[facility] [address] [place], [address] Absolute Neut 12.4 X10 3/uL High 2.0-7.7 [facility] Comment on above: Order Comment: RESUL T(S) PREVIOUSLY REPORTED ON MANUAL REQUISITION DURINGDOWNTIME. Performed By: #### L 100.0100, L500.4050 ####[facility] [address] [place], [address] IG% 0.500 Normal 0.0-0.9 [facility] Comment on above: Order Comment: RESUL T(S) PREVIOUSLY REPORTED ON MANUAL REQUISITION DURINGDOWNTIME. Result Comment: IG% - Immature Granulocytes (promyelocytes, myelocytes andmetamyelocytes) > 1% indicates that a LEFT SHIFT is Present. Performed By: #### L 100.0100, L500.4050 ####[facility] [address] [place], [address] RDW SD 45.3 fl High 35.1-43.9 [facility] Comment on above: Order Comment: RESUL T(S) PREVIOUSLY REPORTED ON MANUAL REQUISITION DURINGDOWNTIME. Performed By: #### L 100.0100, L500.4050 ####[facility] [address] [place], [address] Hematocrit (Bld) [Volume fraction] 46.5 % Normal 37-47 [facility] Comment on above: Order Comment: RESUL T(S) PREVIOUSLY REPORTED ON MANUAL REQUISITION DURINGDOWNTIME. Performed By: #### L 100.0100, L500.4050 ####[facility] [address] [place], [address] Hemoglobin (Bld) [Mass/Vol] 15.7 g/dL High 12.0-15.0 [facility] Comment on above: Order Comment: RESUL T(S) PREVIOUSLY REPORTED ON MANUAL REQUISITION DURINGDOWNTIME. Performed By: #### L 100.0100, L500.4050 ####[facility] [address] [place], [address] RBC (Bld) [#/Vol] 5.28 10*6/uL Normal 4.2-5.4 [facility] Comment on above: Order Comment: RESUL T(S) PREVIOUSLY REPORTED ON MANUAL REQUISITION DURINGDOWNTIME. Performed By: #### L 100.0100, L500.4050 ####[facility] [address] [place], [address] WBC (Bld) [#/Vol] 14.9 10*3/uL High 4.4-11.0 [facility] Comment on above: Order Comment: RESUL T(S) PREVIOUSLY REPORTED ON MANUAL REQUISITION DURINGDOWNTIME. Performed By: #### L 100.0100, L500.4050 ####[facility] [address] [place], [address] CPK Total, Creatine Kinaseon 03-19-2025 CPK TOTAL 137 U/L Normal 24-195 [facility] Comment on above: Order Comment: Comme nts: DC when propofol is d/c'd Performed By: #### L 501.3620, L501.5000 ####[facility] [address] [place], [address] Carbon dioxide, total [Moles /volume] in Central venous bloodOrdered By: Emili Lee on 03-19-2025 CO2 [Moles/Vol] 30.8 mmol/L 21.0-32.0 [facility] Chloride assayOrdered By: Anna Lee on 03-19-2025 Chloride [Moles/Vol] 88 mmol/L Low 98-108 [facility] Comprehensive Metabolic Prof ilon 03-19-2025 Albumin [Mass/Vol] 3.6 g/dL Normal 3.4-4.8 [facility] Comment on above: Performed By: #### L 100.0100, L500.4050 ####[facility] [address] [place], [address] Albumin/Globulin [Mass ratio] 1.2 {ratio} Normal 0.9-2.4 [facility] Comment on above: Performed By: #### L 100.0100, L500.4050 ####[facility] [address] [place], [address] ALK PHOS 149 U/L High 35-104 [facility] Comment on above: Performed By: #### L 100.0100, L500.4050 ####[facility] [address] [place], [address] ALT [Catalytic activity/Vol] 64 U/L High <=34 [facility] Comment on above: Performed By: #### L 100.0100, L500.4050 ####[facility] [facility] [address] [place], [address] AST [Catalytic activity/Vol] 94 U/L High <=31 [facility] Comment on above: Performed By: #### L 100.0100, L500.4050 ####[facility] [address] [place], [address] Bilirubin [Mass/Vol] 0.56 mg/dL Normal 0.00-1.30 [facility] Comment on above: Performed By: #### L 100.0100, L500.4050 ####[facility] [address] [place], [address] BUN/CRE 26.2 RATIO High 10-20 [facility] Comment on above: Performed By: #### L 100.0100, L500.4050 ####[facility] [address] [place], [address] Calcium [Mass/Vol] 8.7 mg/dL Normal 7.6-11.0 [facility] Comment on above: Performed By: #### L 100.0100, L500.4050 ####[facility] [address] [place], [address] Chloride [Moles/Vol] 88 mmol/L Low 98-108 [facility] Comment on above: Performed By: #### L 100.0100, L500.4050 ####[facility] [address] [place], [address] CO2 [Moles/Vol] 30.8 mmol/L Normal 21.0-32.0 [facility] Comment on above: Performed By: #### L 100.0100, L500.4050 ####[facility] [address] [place], [address] Creatinine [Mass/Vol] 2.06 mg/dL High 0.70-1.20 [facility] Comment on above: Performed By: #### L 100.0100, L500.4050 ####[facility] [address] [place], [address] ECRCL 29.42 ml/min Low 50-250 [facility] Comment on above: Performed By: #### L 100.0100, L500.4050 ####[facility] [address] [place], [address] GAP 16 High 5-15 [facility] Comment on above: Performed By: #### L 100.0100, L500.4050 ####[facility] [address] [place], [address] GFR/1.73 sq M.predicted among non-blacks MDRD (S/P/Bld) [Vol rate/Area] 25 mL/min/{1.73_m2} Low >60 [facility] Comment on above: Result Comment: mL/m in/1.73m2 CKD-EPI Creatinine Equation (2020) Performed By: #### L 100.0100, L500.4050 ####[facility] [address] [place], [address] Globulin (S) [Mass/Vol] 3.0 g/dL Normal 2.2-4.2 [facility] Comment on above: Performed By: #### L 100.0100, L500.4050 ####[facility] [address] [place], [address] Glucose [Mass/Vol] 88 mg/dL Normal 70-99 [facility] Comment on above: Performed By: #### L 100.0100, L500.4050 ####[facility] [address] [place], [address] Potassium [Moles/Vol] 3.5 mmol/L Normal 3.3-5.1 [facility] Comment on above: Performed By: #### L 100.0100, L500.4050 ####[facility] [address] [place], [address] Sodium [Moles/Vol] 134 mmol/L Normal 133-145 [facility] Comment on above: Performed By: #### L 100.0100, L500.4050 ####[facility] [address] [place], [address] T PROT 6.6 g/dL Normal 5.9-8.4 [facility] Comment on above: Performed By: #### L 100.0100, L500.4050 ####[facility] [address] [place], [address] Urea nitrogen [Mass/Vol] 54 mg/dL High 4-19 [facility] Comment on above: Performed By: #### L 100.0100, L500.4050 ####[facility] [address] 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, [address] Echo Limited w/Contraston Echo Limited w/Contrast Normal [facility] Electrocardiogram reportOrde red By: Saul Kearney on 03-19-2025 EKG study [facility] Work Phone: Eosinophil %Ordered By: Stephen Lee on 03-19-2025 Eosinophils/100 WBC (Bld) 0.1 % Normal 0-5 [facility] Comment on above: Order Comment: RESUL T(S) PREVIOUSLY REPORTED ON MANUAL REQUISITION DURINGDOWNTIME. Performed By: #### L 100.0100, L500.4050 ####[facility] [address] [place], [place], [address] Erythrocyte distribution wid th ratioOrdered By: Emili Lee on 03-19-2025 Erythrocyte distribution width (RBC) [Ratio] 14.4 % Normal 11.6-14.6 [facility] Comment on above: Order Comment: RESUL T(S) PREVIOUSLY REPORTED ON MANUAL REQUISITION DURINGDOWNTIME. Performed By: #### L 100.0100, L500.4050 ####[facility] [address] [place], [place], [address] Gastric contents occult bloo d detectionOrdered By: Antwan Gardner on 03-19-2025 Hemoglobin.gastrointest inal Ql (Cecily fld) Positive Abnormal [facility] Hemoglobin.gastrointest inal Ql (Cecily fld) Positive Abnormal [facility] Gastric, Occult Bloodon 03-03 GASTOC Normal Reference Ran ge = Negative Gastrocult- Occult Blood A * POSITIVE * A Gastroccult pH 2 OCCULT BLOOD POSITIVE Normal [facility] Comment on above: Performed By: #### M 100.2007 ####[facility] [address] [place], [place], [id number] Glomerular filtration rate ( GFR) estimation/1.73 sq m using serum, plasma, or whole bOrdered By: Emili Lee on 03-19-2025 GFR/1.73 sq M.predicted among non-blacks MDRD (S/P/Bld) [Vol rate/Area] 25 mL/min/{1.73_m2} Low >60 [facility] Comment on above: mL/min/1.73m2 CKD-EP I Creatinine Equation (2020) Hematocrit Auto (Bld) [Volum e fraction]Ordered By: Emili Lee on 03-19-2025 Hematocrit (Bld) [Volume fraction] 46.5 % 37-47 [facility] Hemoglobin measurementOrdere d By: Emili Lee on 03-19-2025 Hemoglobin (Bld) [Mass/Vol] 15.7 g/dL High 12.0-15.0 [facility] Immature granulocyte percent ageOrdered By: Emili Lee on 03-19-2025 Immature granulocytes/100 WBC (Bld) 0.500 % 0.0-0.9 [facility] Comment on above: IG% - Immature Granu locytes (promyelocytes, myelocytes and metamyelocytes) > 1% indicates that a LEFT SHIFT is Present. Laboratory - Chemistry and C hemistry - challengeOrdered By: Emili Lee on 03-19-2025 AST [Catalytic activity/Vol] 94 U/L High <32 [facility] Lactic Acidon 03-19-2025 Lactate [Moles/Vol] 1.3 mmol/L Normal 0.0-2.0 [facility] Comment on above: Order Comment: Y Performed By: #### L 503.6005 ####[facility] [address] [place], [place], [id number] Limited echocardiogram repor tOrdered By: Saul Kearney on 03-19-2025 Study report [facility] Work Phone: Lymphocyte %Ordered By: Stephen Lee on 03-19-2025 Lymphocytes/100 WBC (Bld) 11.9 % Low 19-41 [facility] Comment on above: Order Comment: RESUL T(S) PREVIOUSLY REPORTED ON MANUAL REQUISITION DURINGDOWNTIME. Performed By: #### L 100.0100, L500.4050 ####[facility] [address] [place], [place], [address] MCV (mean corpuscular volume ) determinationOrdered By: Emili Lee on 03-19-2025 MCV (RBC) [Entitic vol] 88.1 fL Normal 81-99 [facility] Comment on above: Delta: 93.5 on 03/18-1514 Order Comment: RESUL T(S) PREVIOUSLY REPORTED ON MANUAL REQUISITION DURINGDOWNTIME. Performed By: #### L 100.0100, L500.4050 ####[facility] [address] [place], [place], [address] Mean corpuscular hemoglobin (MCH) determinationOrdered By: Emiil Lee on 03-19-2025 MCH (RBC) [Entitic mass] 29.7 pg Normal 27.0-32.0 [facility] Comment on above: Order Comment: RESUL T(S) PREVIOUSLY REPORTED ON MANUAL REQUISITION DURINGDOWNTIME. Performed By: #### L 100.0100, L500.4050 ####[facility] [address] [place], [place], [address] Mean corpuscular hemoglobin concentration (MCHC) determinationOrdered By: Emili Lee on 03-19-2025 MCHC (RBC) [Mass/Vol] 33.8 g/dL Normal 32-36 [facility] Comment on above: Delta: 31.3 on 03/18-1514 Order Comment: RESUL T(S) PREVIOUSLY REPORTED ON MANUAL REQUISITION DURINGDOWNTIME. Performed By: #### L 100.0100, L500.4050 ####[facility] [address] [place], [place], [address] Mean platelet volume determi nationOrdered By: Emili Lee on 03-19-2025 Platelet mean volume (Bld) [Entitic vol] 10.3 fL Normal 6.2-12.0 [facility] Comment on above: Order Comment: RESUL T(S) PREVIOUSLY REPORTED ON MANUAL REQUISITION DURINGDOWNTIME. Performed By: #### L 100.0100, L500.4050 ####[facility] [address] [facility] [place], [place], [address] Measurement, pHOrdered By: Katja Hernandez on 03-19-2025 pH (Unsp spec) 7.46 [pH] High 7.35-7.45 [facility] Monocyte percentageOrdered B y: Emili Lee on 03-19-2025 Monocytes/100 WBC (Bld) 4.2 % Normal 0-10 [facility] Comment on above: Order Comment: RESUL T(S) PREVIOUSLY REPORTED ON MANUAL REQUISITION DURINGDOWNTIME. Performed By: #### L 100.0100, L500.4050 ####[facility] [address] [place], [address] Neutrophil %Ordered By: Stephen Lee on 03-19-2025 Neutrophils/100 WBC (Bld) 83.0 % High 47-70 [facility] Comment on above: Order Comment: RESUL T(S) PREVIOUSLY REPORTED ON MANUAL REQUISITION DURINGDOWNTIME. Performed By: #### L 100.0100, L500.4050 ####[facility] [address] [place], [address] No Panel InformationOrdered By: Otilia Hernandez on 03-19-2025 ART [facility] Art Line [facility] AC [facility] Adult Vent [facility] 400.0 mL [facility] 14 [facility] 5 [facility] No Panel InformationOrdered By: Emili Lee on 03-19-2025 94 U/L High <32 [facility] Osmolality, Urineon 03-19-20 25 OSMOLALITY,UR 437 mOsm/KG Normal [facility] Comment on above: Order Comment: 00:58 03-19-25 Result Comment: Norm al Urine Reference Ranges Random: 50 - 1200 mOsm/kg H20 depending on fluid intake Random: >850 mOsm/kg after 12 hour fluid restriction 24 hour: 300 - 900 mOsm/kg H2O Performed By: #### L 500.9400, L501.7400, L501.1200, L502.0715 ####[facility] [address] [place], [address] Potassium measurement (mass/ volume)Ordered By: Emili Lee on 03-19-2025 Potassium (Unsp spec) [Mass/Vol] 3.5 mmol/L 3.3-5.1 [facility] RBC Auto (Bld) [#/Vol]Ordere d By: Emili Lee on 03-19-2025 RBC (Bld) [#/Vol] 5.28 10*6/uL 4.2-5.4 [facility] RDWOrdered By: Emili Lee on 03-19-2025 RDW 45.3 fl High 35.1-43.9 [facility] RESPIRATORY PANEL MOLECULARo n 03-19-2025 RP PANEL Normal [facility] Comment on above: Performed By: #### M 602.529 ####[facility] [address] [place], [place], [address] Serum creatinine measurement (mass/volume)Ordered By: Emili Lee on 03-19-2025 Creatinine [Mass/Vol] 2.06 mg/dL High 0.70-1.20 [facility] Serum globulin measurementOr dered By: Eimli Lee on 03-19-2025 Globulin (S) [Mass/Vol] 3.0 g/dL 2.2-4.2 [facility] Serum glucose measurement (m ass/volume)Ordered By: Emili Lee on 03-19-2025 Glucose [Mass/Vol] 88 mg/dL 70-99 [facility] Serum or plasma alanine gao otransferase (ALT) measurementOrdered By: Emili Lee on 03-19-2025 ALT [Catalytic activity/Vol] 64 U/L High <35 [facility] Serum or plasma albumin lisa urement (mass/volume)Ordered By: Emili Lee on 03-19-2025 Albumin [Mass/Vol] 3.6 g/dL 3.4-4.8 [facility] Serum or plasma albumin/glob ulin mass ratioOrdered By: Emili Lee on 03-19-2025 Albumin/Globulin [Mass ratio] 1.2 {ratio} 0.9-2.4 [facility] Serum or plasma alkaline bee sphatase measurementOrdered By: Emili Lee on 03-19-2025 ALP [Catalytic activity/Vol] 149 U/L High 35-104 [facility] Serum or plasma calcium lisa urement (mass/volume)Ordered By: Emili Lee on 03-19-2025 Calcium [Mass/Vol] 8.7 mg/dL 7.6-11.0 [facility] Serum or plasma urea nitroge n measurement (mass/volume)Ordered By: Emili Lee on 03-19-2025 Urea nitrogen [Mass/Vol] 54 mg/dL High 4-19 [facility] Shoulder min 2 Viewson 03-19 Shoulder min 2 Views Normal [facility] Sodium levelOrdered By: Stephen Lee on 03-19-2025 Sodium [Moles/Vol] 134 mmol/L 133-145 [facility] Total carbon dioxide measure mentOrdered By: Otilia Hernandez on 03-19-2025 CO2 [Moles/Vol] 36 mmol/L [facility] Total proteinOrdered By: Ketan Lee on 03-19-2025 Protein [Mass/Vol] 6.6 g/dL 5.9-8.4 [facility] Triglycerideson 03-19-2025 Triglyceride [Mass/Vol] 90 mg/dL Normal [facility] Comment on above: Order Comment: Comme nts: DC when propofol is d/c'dDC when propofol is d/c'd Result Comment: The drugs N-Acetylcysteine and Metamizole may falselydepress this assay.Normal range: <150 mg/dLBorderline High: 150-199 mg/dLHigh: 200-499 mg/dLVery High: >500 mg/dL Performed By: #### L 501.3620, L501.5000 ####[facility] [address] [place], [address] Urea Nitrogen, Urineon 03-19 URINE UREA 390 mg/dL Normal NO RANGE EST. [facility] Comment on above: Order Comment: 00:58 03-19-25 Performed By: #### L 500.9400, L501.7400, L501.1200, L502.0715 ####[facility] [address] [place], [address] Urine Cultureon 03-19-2025 URC Culture exhibits no growth. Normal [facility] Comment on above: Performed By: #### M 100.2200 ####[facility] [address] [place], [address] Urine Electrolytes- Randomon 03-19-2025 Chloride,URINE < 20 Normal Not Establ. [facility] Comment on above: Order Comment: 00:58 03-19-25 Performed By: #### L 500.9400, L501.7400, L501.1200, L502.0715 ####[facility] [address] [place], [address] Sodium (U) [Moles/Vol] 28 mmol/L Normal Not Establ. [facility] Comment on above: Order Comment: 00:58 03-19-25 Performed By: #### L 500.9400, L501.7400, L501.1200, L502.0715 ####[facility] [address] [place], [address] UR K 31.9 mmol/L Normal Not Establ. [facility] Comment on above: Order Comment: 00:58 03-19-25 Performed By: #### L 500.9400, L501.7400, L501.1200, L502.0715 ####[facility] [address] [place], [address] White blood cell (WBC) count Ordered By: Emili Lee on 03-19-2025 WBC (Bld) [#/Vol] 14.9 10*3/uL High 4.4-11.0 [facility] 12 Lead EKGon 03-18-2025 12 Lead EKG Normal [facility] Abdomen Single View (Portabl e)on 03-18-2025 Abdomen Single View (Portable) Normal [facility] Absolute lymphocyte countOrd ered By: Deion Levy on 03-18-2025 Lymphocytes Auto (Unsp spec) [#/Vol] 0.73 10*3/uL Low 0.83-4.51 [facility] Absolute neutrophil countOrd ered By: Deion Levy on 03-18-2025 Neutrophils (Bld) [#/Vol] 8.4 10*3/uL High 2.0-7.7 [facility] Activated partial thrombopla stin time (aPTT) in platelet poor plasma by coagulation aOrdered By: Deion Levy on 03-18-2025 aPTT Coag (PPP) [Time] 27.8 s 24.1-36.2 [facility] Anion gap in Serum or Plasma Ordered By: Deion Levy on 03-18-2025 Anion gap [Moles/Vol] 14 mmol/L 5-15 [facility] Automated lymphocyte count a s percentage of total leukocytesOrdered By: Deion Levy on 03-18-2025 Lymphocytes/100 WBC Auto (Unsp spec) 7.4 % Low 19-41 [facility] BUN/creatinine ratioOrdered By: Deion Levy on 03-18-2025 Urea nitrogen/Creatinine [Mass ratio] 22.8 mg/mg High 10-20 [facility] Basophil percentageOrdered B y: Deion Levy on 03-18-2025 Basophils/100 WBC (Bld) 0.4 % 0-1 [facility] Bilirubin Test strip Ql (U)O rdered By: Deionfreida Levy on 03-18-2025 Bilirubin Ql (U) Negative Negative [facility] Bilirubin, totalOrdered By: Deionfreida Levy on 03-18-2025 Bilirubin [Mass/Vol] 0.35 mg/dL 0.00-1.30 [facility] Blood Gases by CPSon 025 Base excess Calc (Bld) [Moles/Vol] 4 mmol/L High -2 to +2 [facility] Comment on above: Performed By: #### L 9000.0800 ####[facility] [address] [place], [address] Blood Gas Type ART Normal [facility] Comment on above: Performed By: #### L 9000.0800 ####[facility] [address] [place], [address] CO2 [Moles/Vol] 32 mmol/L Normal [facility] Comment on above: Performed By: #### L 9000.0800 ####[facility] [address] [place], [address] FI02 40.0 Normal [facility] Comment on above: Performed By: #### L 9000.0800 ####[facility] [address] [place], [address] HCO3 (Bld) [Moles/Vol] 30.3 mmol/L High 22-26 [facility] Comment on above: Performed By: #### L 9000.0800 ####[facility] [address] [place], [address] Mode AC/VC Normal [facility] Comment on above: Performed By: #### L 9000.0800 ####[facility] [address] [place], [address] O2 Delivery Dev Adult Vent Normal [facility] Comment on above: Performed By: #### L 9000.0800 ####[facility] [address] [place], [address] pCO2 59.2 mmHg High 35-45 [facility] Comment on above: Performed By: #### L 9000.0800 ####[facility] [address] [place], [address] PEEP 5 Normal [facility] Comment on above: Performed By: #### L 9000.0800 ####[facility] [address] [place], [address] pH (Bld) 7.32 [pH] Low 7.35-7.45 [facility] Comment on above: Performed By: #### L 9000.0800 ####[facility] [address] [place], [address] PO2 101 mmHG High 75-100 [facility] Comment on above: Performed By: #### L 9000.0800 ####[facility] [address] [place], [address] RR 14 Normal [facility] Comment on above: Performed By: #### L 9000.0800 ####[facility] [address] [place], [address] SITE L Brach Normal [facility] Comment on above: Performed By: #### L 9000.0800 ####[facility] [address] [place], [address] SO2 97 Normal 95-99 [facility] Comment on above: Performed By: #### L 9000.0800 ####[facility] [address] [place], [address] Vt 400.0 mL Normal [facility] Comment on above: Performed By: #### L 9000.0800 ####[facility] [address] [place], [address] Blood base excess determinat ionOrdered By: Emili Lee on 03-18-2025 Base excess Calc (BldV) [Moles/Vol] 4 mmol/L High -2-2 [facility] Blood bicarbonate measuremen tOrdered By: Emili Lee on 03-18-2025 HCO3 (Bld) [Moles/Vol] 30.3 mmol/L High 22-26 [facility] Blood cultureOrdered By: Deion Levy on 03-18-2025 Bacteria identified Cx Nom (Bld) No growth in 5 days. [facility] Bacteria identified Cx Nom (Bld) No growth in 5 days. [facility] Brain/Head without Contrasto n 03-18-2025 Brain/Head without Contrast Normal [facility] CBC W/Diff, Automatedon 09- Absolute Lymph 0.73 X10 3/uL Low 0.83-4.51 [facility] Comment on above: Performed By: #### L 501.9520, L500.4050, L100.0100 ####[facility] [address] [place], [address] Absolute Neut 8.4 X10 3/uL High 2.0-7.7 [facility] Comment on above: Performed By: #### L 501.9520, L500.4050, L100.0100 ####[facility] [address] [place], [address] Basophils/100 WBC (Bld) 0.4 % Normal 0-1 [facility] Comment on above: Performed By: #### L 501.9520, L500.4050, L100.0100 ####[facility] [address] [place], [address] Eosinophils/100 WBC (Bld) 0.0 % Normal 0-5 [facility] Comment on above: Performed By: #### L 501.9520, L500.4050, L100.0100 ####[facility] [address] [place], [address] Erythrocyte distribution width (RBC) [Ratio] 14.6 % Normal 11.6-14.6 [facility] Comment on above: Performed By: #### L 501.9520, L500.4050, L100.0100 ####[facility] [address] [place], [address] Hematocrit (Bld) [Volume fraction] 50.5 % High 37-47 [facility] Comment on above: Performed By: #### L 501.9520, L500.4050, L100.0100 ####[facility] [address] [place], [address] Hemoglobin (Bld) [Mass/Vol] 15.8 g/dL High 12.0-15.0 [facility] Comment on above: Performed By: #### L 501.9520, L500.4050, L100.0100 ####[facility] [address] [place], [address] IG% 0.900 Normal 0.0-0.9 [facility] Comment on above: Result Comment: IG% - Immature Granulocytes (promyelocytes, myelocytes andmetamyelocytes) > 1% indicates that a LEFT SHIFT is Present. Performed By: #### L 501.9520, L500.4050, L100.0100 ####[facility] [address] [place], [address] Lymphocytes/100 WBC (Bld) 7.4 % Low 19-41 [facility] Comment on above: Performed By: #### L 501.9520, L500.4050, L100.0100 ####[facility] [address] [place], [address] MCH (RBC) [Entitic mass] 29.3 pg Normal 27.0-32.0 [facility] Comment on above: Performed By: #### L 501.9520, L500.4050, L100.0100 ####[facility] [address] [place], [address] MCHC (RBC) [Mass/Vol] 31.3 g/dL Low 32-36 [facility] Comment on above: Performed By: #### L 501.9520, L500.4050, L100.0100 ####[facility] [address] [place], [address] MCV (RBC) [Entitic vol] 93.5 fL Normal 81-99 [facility] Comment on above: Performed By: #### L 501.9520, L500.4050, L100.0100 ####[facility] [address] [place], [address] Monocytes/100 WBC (Bld) 7.0 % Normal 0-10 [facility] Comment on above: Performed By: #### L 501.9520, L500.4050, L100.0100 ####[facility] [address] [place], [address] Neutrophils/100 WBC (Bld) 84.3 % High 47-70 [facility] Comment on above: Performed By: #### L 501.9520, L500.4050, L100.0100 ####[facility] [address] [place], [address] Nucleated RBC (Bld) [#/Vol] 0 10*3/uL Normal 0-5 [facility] Comment on above: Performed By: #### L 501.9520, L500.4050, L100.0100 ####[facility] [address] [place], [address] Platelet mean volume (Bld) [Entitic vol] 10.4 fL Normal 6.2-12.0 [facility] Comment on above: Performed By: #### L 501.9520, L500.4050, L100.0100 ####[facility] [address] [place], [address] Platelets (Bld) [#/Vol] 218 10*3/uL Normal 150-450 [facility] Comment on above: Performed By: #### L 501.9520, L500.4050, L100.0100 ####[facility] [address] [place], [address] RBC (Bld) [#/Vol] 5.40 10*6/uL Normal 4.2-5.4 [facility] Comment on above: Performed By: #### L 501.9520, L500.4050, L100.0100 ####[facility] [address] [place], [address] RDW SD 49.9 fl High 35.1-43.9 [facility] Comment on above: Performed By: #### L 501.9520, L500.4050, L100.0100 ####[facility] [address] [place], [address] WBC (Bld) [#/Vol] 9.9 10*3/uL Normal 4.4-11.0 [facility] Comment on above: Performed By: #### L 501.9520, L500.4050, L100.0100 ####[facility] [address] [place], [address] CRPon 03-18-2025 C-REACTIVE PROT 5.32 mg/L High 0.0-3.0 [facility] Comment on above: Performed By: #### L 101.9900, L509.7001, L501.4910 ####[facility] [address] [place], [address] CTA Abd/Pelvis W/WO Contrast on 03-18-2025 CTA Abd/Pelvis W/WO Contrast Normal [facility] Carbon dioxide, total [Moles /volume] in Central venous bloodOrdered By: Deion Levy on 03-18-2025 CO2 [Moles/Vol] 32.8 mmol/L High 21.0-32.0 [facility] Chest 1 View (Portable)on Chest 1 View (Portable) Normal [facility] Chest 1 View (Portable) Normal [facility] Chest PA and Lateralon 03-18 Chest PA and Lateral Normal [facility] Chloride assayOrdered By: Mai Levy on 03-18-2025 Chloride [Moles/Vol] 84 mmol/L Low 98-108 [facility] Comprehensive Metabolic Prof ilon 03-18-2025 Albumin [Mass/Vol] 4.1 g/dL Normal 3.4-4.8 [facility] Comment on above: Performed By: #### L 501.9520, L500.4050, L100.0100 ####[facility] [address] [place], [address] Albumin/Globulin [Mass ratio] 1.1 {ratio} Normal 0.9-2.4 [facility] Comment on above: Performed By: #### L 501.9520, L500.4050, L100.0100 ####[facility] [address] [place], [address] ALK PHOS 162 U/L High 35-104 [facility] Comment on above: Performed By: #### L 501.9520, L500.4050, L100.0100 ####[facility] [address] [place], [address] ALT [Catalytic activity/Vol] 61 U/L High <=34 [facility] Comment on above: Performed By: #### L 501.9520, L500.4050, L100.0100 ####[facility] [address] [place], [address] AST [Catalytic activity/Vol] 86 U/L High <=31 [facility] Comment on above: Performed By: #### L 501.9520, L500.4050, L100.0100 ####[facility] [address] [place], [address] Bilirubin [Mass/Vol] 0.35 mg/dL Normal 0.00-1.30 [facility] Comment on above: Performed By: #### L 501.9520, L500.4050, L100.0100 ####[facility] [address] [place], [address] BUN/CRE 22.8 RATIO High 10-20 [facility] Comment on above: Performed By: #### L 501.9520, L500.4050, L100.0100 ####[facility] [address] [place], [address] Calcium [Mass/Vol] 9.7 mg/dL Normal 7.6-11.0 [facility] Comment on above: Performed By: #### L 501.9520, L500.4050, L100.0100 ####[facility] [address] [place], [address] Chloride [Moles/Vol] 84 mmol/L Low 98-108 [facility] Comment on above: Performed By: #### L 501.9520, L500.4050, L100.0100 ####[facility] [address] [place], [address] CO2 [Moles/Vol] 32.8 mmol/L High 21.0-32.0 [facility] Comment on above: Performed By: #### L 501.9520, L500.4050, L100.0100 ####[facility] [address] [place], [address] Creatinine [Mass/Vol] 2.22 mg/dL High 0.70-1.20 [facility] Comment on above: Performed By: #### L 501.9520, L500.4050, L100.0100 ####[facility] [address] [place], [address] ECRCL 27.85 ml/min Low 50-250 [facility] Comment on above: Performed By: #### L 501.9520, L500.4050, L100.0100 ####[facility] [address] [place], [address] GAP 14 Normal 5-15 [facility] Comment on above: Performed By: #### L 501.9520, L500.4050, L100.0100 ####[facility] [address] [place], [address] GFR/1.73 sq M.predicted among non-blacks MDRD (S/P/Bld) [Vol rate/Area] 22 mL/min/{1.73_m2} Low >60 [facility] Comment on above: Result Comment: mL/m in/1.73m2 CKD-EPI Creatinine Equation (2020) Performed By: #### L 501.9520, L500.4050, L100.0100 ####[facility] [address] [place], [address] Globulin (S) [Mass/Vol] 3.6 g/dL Normal 2.2-4.2 [facility] Comment on above: Performed By: #### L 501.9520, L500.4050, L100.0100 ####[facility] [address] [place], [address] Glucose [Mass/Vol] 115 mg/dL High 70-99 [facility] Comment on above: Performed By: #### L 501.9520, L500.4050, L100.0100 ####[facility] [address] [place], [address] Potassium [Moles/Vol] 4.4 mmol/L Normal 3.3-5.1 [facility] Comment on above: Performed By: #### L 501.9520, L500.4050, L100.0100 ####[facility] [address] [place], [address] Sodium [Moles/Vol] 131 mmol/L Low 133-145 [facility] Comment on above: Performed By: #### L 501.9520, L500.4050, L100.0100 ####[facility] [address] [place], [address] T PROT 7.7 g/dL Normal 5.9-8.4 [facility] Comment on above: Performed By: #### L 501.9520, L500.4050, L100.0100 ####[facility] [address] [place], [address] Urea nitrogen [Mass/Vol] 51 mg/dL High 4-19 [facility] Comment on above: Performed By: #### L 501.9520, L500.4050, L100.0100 ####[facility] [address] [place], [address] Emergency Department Summary on 03-18-2025 Emergency Department Summary Normal [facility] Eosinophil percentageOrdered By: Deion Levy on 03-18-2025 Eosinophils/100 WBC (Bld) 0.0 % 0-5 [facility] Erythrocyte Sed Rateon 03-18 SED RATE 37 mm/hr High 0-30 [facility] Comment on above: Performed By: #### L 101.9900, L509.7001, L501.6710 ####[facility] [address] [place], [address] Erythrocyte distribution wid th ratioOrdered By: Deion Levy on 03-18-2025 Erythrocyte distribution width (RBC) [Ratio] 14.6 % 11.6-14.6 [facility] Erythrocyte distribution wid th standard deviationOrdered By: Deion Levy on 03-18-2025 Erythrocyte distribution width (RBC) [Ratio] 49.9 fl High 35.1-43.9 [facility] Erythrocyte sedimentation ra teOrdered By: Emili Lee on 03-18-2025 ESR (Bld) [Velocity] 37 mm/h High 0-30 [facility] Glomerular filtration rate ( GFR) estimation/1.73 sq m using serum, plasma, or whole bOrdered By: Deion Levy on 03-18-2025 GFR/1.73 sq M.predicted among non-blacks MDRD (S/P/Bld) [Vol rate/Area] 22 mL/min/{1.73_m2} Low >60 [facility] Comment on above: mL/min/1.73m2 CKD-EP I Creatinine Equation (2020) [facility] deOrdered By: Otilia Hernandez on 03-18-2025 Glucose [Mass/Vol] 118 mg/dL High 74-106 [facility] Gram stainOrdered By: Deion johnson on 03-18-2025 Microscopic observation Gram stain Nom (Unsp spec) [facility] Microscopic observation Gram stain Nom (Unsp spec) [facility] H AND P Exam - Hospitaliston 03-18-2025 H&P Exam - Hospitalist Normal [facility] Hematocrit Auto (Bld) [Volum e fraction]Ordered By: Deion Levy on 03-18-2025 Hematocrit (Bld) [Volume fraction] 50.5 % High 37-47 [facility] Hemoglobin measurementOrdere d By: Deion Levy on 03-18-2025 Hemoglobin (Bld) [Mass/Vol] 15.8 g/dL High 12.0-15.0 [facility] Immature granulocytes/100 WB C Auto (Bld)Ordered By: [facility] on 03-18-2025 Immature granulocytes/100 WBC (Bld) 0.900 % 0.0-0.9 [facility] Comment on above: IG% - Immature Granu locytes (promyelocytes, myelocytes and metamyelocytes) > 1% indicates that a LEFT SHIFT is Present. International normalized rat io (INR) calculationOrdered By: [facility] on 03-18-2025 INR Coag (Bld) [Relative time] 0.9 {INR} [facility] Ketones Test strip Ql (U)Ord ered By: [facility] on 03-18-2025 Ketones Ql (U) Negative Negative [facility] L509.7001on 03-18-2025 Procalcitonin 0.10 ng/mL Normal <=0.10 [facility] Comment on above: Result Comment: Inte rpretation:<0.10-0.25 ng/mL: Antibiotic therapy discouraged. Bacterialinfection unlikely.0.25-0.50 ng/mL: Antibiotic therapy encouraged. Bacterialinfection possible.>0.50 ng/mL: Antibiotic therapy strongly encouraged.Suggestive of presence of bacterial infection.PCT should always be interpreted in the clinical context ofthe patient. Therefore, clinicians should use the PCTresults in conjunction with other laboratory findings andclinical signs of the patient. Performed By: #### L 101.9900, L509.7001, L501.6710 ####[facility] [address] [place], [place], [address] Laboratory - Chemistry and C hemistry - challengeOrdered By: [facility] on 03-18-2025 AST [Catalytic activity/Vol] 86 U/L High <32 [facility] Lactic Acidon 03-18-2025 Lactate [Moles/Vol] 1.1 mmol/L Normal 0.0-2.0 [facility] Comment on above: Order Comment: Y Performed By: #### L 300.3900, L300.4310, L503.6005, M200.1000 ####[facility] [address] [place], [address] Lactic acid measurementOrder ed By: Deion Levy on 03-18-2025 Lactate [Moles/Vol] 1.1 mmol/L 0.0-2.0 [facility] MCV (mean corpuscular volume ) determinationOrdered By: Deion Levy on 03-18-2025 MCV (RBC) [Entitic vol] 93.5 fL 81-99 [facility] Mean corpuscular hemoglobin (MCH) determinationOrdered By: Deion Levy on 03-18-2025 MCH (RBC) [Entitic mass] 29.3 pg 27.0-32.0 [facility] Mean corpuscular hemoglobin concentration (MCHC) determinationOrdered By: Deionfreida Levy on 03-18-2025 MCHC (RBC) [Mass/Vol] 31.3 g/dL Low 32-36 [facility] Mean platelet volume determi nationOrdered By: Deionfreida Levy on 03-18-2025 Platelet mean volume (Bld) [Entitic vol] 10.4 fL 6.2-12.0 [facility] Measurement, pHOrdered By: Wenceslao Lee on 03-18-2025 pH (Unsp spec) 7.32 [pH] Low 7.35-7.45 [facility] Microbial respiratory cultur eOrdered By: Deion Levy on 03-18-2025 Microorganism identified Cx Nom (Unsp spec) or Staphylococcus aureus isolated. [facility] Microorganism identified Cx Nom (Unsp spec) or Staphylococcus aureus isolated. [facility] Microscopic analysis of urin e for red blood cells (RBC)Ordered By: Deion Levy on 03-18-2025 Microscopic analysis of urine for red blood cells (RBC) 0-5 SEEN /hpf 0-5 [facility] Monocyte percentageOrdered B y: Deion Levy on 03-18-2025 Monocytes/100 WBC (Bld) 7.0 % 0-10 [facility] Mucus LM Ql (Urine sed)Order ed By: Deion Levy on 03-18-2025 Mucus Ql (Urine sed) 0 SEEN /hpf [facility] Natriuretic peptide.B prohor mac N-Terminal [Mass/volume] in Serum or PlasmaOrdered By: Emili Lee on 03-18-2025 Natriuretic peptide.B prohormone N-Terminal [Mass/Vol] 2155 pg/mL High <1800 [facility] Comment on above: Heart Failure Unlike ly: < 300 pg/mLHeart Failure Likely< 50 Years: > 450 pg/mL50-75 Years: > 900 pg/mL>75 Years: > 1800 pg/mL Neutrophil percentageOrdered By: Deion Levy on 03-18-2025 Neutrophils/100 WBC (Bld) 84.3 % High 47-70 [facility] Nitrite Test strip Ql (U)Ord ered By: Deion Levy on 03-18-2025 Nitrite Ql (U) Negative Negative [facility] No Panel InformationOrdered By: Emili Lee on 03-18-2025 Bedside Blood Gas PEEP 5 [facility] Blood Gas Respiration Rate 14 [facility] Blood Gas Sample Site L Brach [facility] Blood Gas Specimen Type ART [facility] Blood Gas Tidal Volume 400.0 mL [facility] Blood Gas Vent Mode AC/VC [facility] Oxygen Delivery Device Adult Vent [facility] Nucleated red blood cell per centageOrdered By: Deion Levy on 03-18-2025 Nucleated RBC/100 WBC (Bld) [Ratio] 0 % 0-5 [facility] Osmolality urOrdered By: Ketan Lee on 03-18-2025 Osmolality (U) [Osmolality] 437 mOsm/KG >50 [facility] Partial Thromboplast Timeon 03-18-2025 aPTT Coag (Bld) [Time] 27.8 s Normal 24.1-36.2 [facility] Comment on above: Performed By: #### L 300.3900, L300.4310, L503.6005, M200.1000 ####[facility] [address] [place], [address] Platelet countOrdered By: Mai Levy on 03-18-2025 Platelets (Bld) [#/Vol] 218 10*3/uL 150-450 [facility] Potassium measurement (mass/ volume)Ordered By: Deion Levy on 03-18-2025 Potassium (Unsp spec) [Mass/Vol] 4.4 mmol/L 3.3-5.1 [facility] Pro- Brain NATRIURETIC PEPTI Rita 03-18-2025 Natriuretic peptide B (Bld) [Mass/Vol] 2155 pg/mL High <=1800 [facility] Comment on above: Result Comment: Hear t Failure Unlikely: < 300 pg/mLHeart Failure Likely< 50 Years: > 450 pg/mL50-75 Years: > 900 pg/mL>75 Years: > 1800 pg/mL Performed By: #### L 503.7509 ####[facility] [address] [place], [place], [id number] Procalcitonin [Mass/volume] in Serum or Plasma by ImmunoassayOrdered By: Emili Lee on 03-18-2025 Procalcitonin IA [Mass/Vol] 0.10 ng/mL <0.11 [facility] Comment on above: Interpretation:<0.10 -0.25 ng/mL: Antibiotic [...] Protein Ql (U) 30 mg/dl High Negative [facility] Prothrombin Time w/INRon INR Coag (PPP) [Relative time] 0.9 {INR} Normal [facility] Comment on above: Performed By: #### L 300.3900, L300.4310, L503.6005, M200.1000 ####[facility] [address] [place], [place], [id number] PT Coag (PPP) [Time] 12.4 s Normal 11.7-14.9 [facility] Comment on above: Performed By: #### L 300.3900, L300.4310, L503.6005, M200.1000 ####[facility] [address] [place], [address] Prothrombin timeOrdered By: Deion Levy on 03-18-2025 PT Coag (PPP) [Time] 12.4 s 11.7-14.9 [facility] RBC Auto (Bld) [#/Vol]Ordere d By: Deion Levy on 03-18-2025 RBC (Bld) [#/Vol] 5.40 10*6/uL 4.2-5.4 [facility] Random urine creatinine lisa urement (mass/volume)Ordered By: Emili Lee on 03-18-2025 Creatinine Unsp time (U) [Mass/Vol] 83.80 mg/dL 28.00-217.0 0 [facility] Respiratory pathogens detect ion panel by molecular detection methodOrdered By: Emili Lee on 03-18-2025 Respiratory pathogens DNA and RNA panel RANJIT+probe (Resp) [facility] Respiratory pathogens DNA and RNA panel RANJIT+probe (Resp) [facility] Serum creatinine measurement (mass/volume)Ordered By: Deion Levy on 03-18-2025 Creatinine [Mass/Vol] 2.22 mg/dL High 0.70-1.20 [facility] Serum globulin measurementOr dered By: Deion Levy on 03-18-2025 Globulin (S) [Mass/Vol] 3.6 g/dL 2.2-4.2 [facility] Serum glucose measurement (m ass/volume)Ordered By: Deion Levy on 03-18-2025 Glucose [Mass/Vol] 115 mg/dL High 70-99 [facility] Serum or plasma C reactive p rotein measurement (mass/volume)Ordered By: Emili Lee on 03-18-2025 CRP [Mass/Vol] 5.32 mg/L High 0.0-3.0 [facility] Serum or plasma alanine gao otransferase (ALT) measurementOrdered By: Deionfreida Levy on 03-18-2025 ALT [Catalytic activity/Vol] 61 U/L High <35 [facility] Serum or plasma albumin lisa urement (mass/volume)Ordered By: Deion Levy on 03-18-2025 Albumin [Mass/Vol] 4.1 g/dL 3.4-4.8 [facility] Serum or plasma albumin/glob ulin mass ratioOrdered By: Deion Levy on 03-18-2025 Albumin/Globulin [Mass ratio] 1.1 {ratio} 0.9-2.4 [facility] Serum or plasma alkaline bee sphatase measurementOrdered By: Deion Levy on 03-18-2025 ALP [Catalytic activity/Vol] 162 U/L High 35-104 [facility] Serum or plasma calcium lisa urement (mass/volume)Ordered By: Deion Levy on 03-18-2025 Calcium [Mass/Vol] 9.7 mg/dL 7.6-11.0 [facility] Serum or plasma creatine kin ase activityOrdered By: Claire Mayorga on 03-18-2025 CK [Catalytic activity/Vol] 137 U/L 24-195 [facility] Serum or plasma urea nitroge n measurement (mass/volume)Ordered By: Deion Levy on 03-18-2025 Urea nitrogen [Mass/Vol] 51 mg/dL High 4-19 [facility] Sodium levelOrdered By: Deion Levy on 03-18-2025 Sodium [Moles/Vol] 131 mmol/L Low 133-145 [facility] Squamous epithelial cells de tection in urine sediment by light microscopyOrdered By: Deion Levy on 03-18-2025 Epithelial cells.squamous LM Ql (Urine sed) 0-5 SEEN /hpf 5-10 [facility] TSH DL <= 0.005 mIU/L QnOrde red By: Deion Levy on 03-18-2025 TSH Qn 1.650 uIU/mL 0.300-4.200 [facility] Thyroid Stim Hormone (TSH)on 03-18-2025 TSH 1.650 uIU/mL Normal 0.300-4.200 [facility] Comment on above: Performed By: #### L 501.9595, L500.4050, L100.0100 ####[facility] [address] [place], [address] Total carbon dioxide measure mentOrdered By: Emili Lee on 03-18-2025 CO2 [Moles/Vol] 32 mmol/L [facility] Total proteinOrdered By: Deion Levy on 03-18-2025 Protein [Mass/Vol] 7.7 g/dL 5.9-8.4 [facility] Transitional cells detection in urine sediment by light microscopyOrdered By: Deion Levy on 03-18-2025 Transitional cells LM Ql (Urine sed) 0-5 SEEN /hpf 0-5 [facility] Triglycerides measurementOrd ered By: Claire Tierra on 03-18-2025 Triglyceride [Mass/Vol] 90 mg/dL <199 [facility] Comment on above: The drugs N-Acetylcy steine and Metamizole may falsely depress this assay. Normal range: <150 mg/dLBorderline High: 150-199 mg/dLHigh: 200-499 mg/dLVery High: >500 mg/dL Urinalysis, Completeon 03-18 BACTERIA 1+ /hpf Normal None Seen [facility] Comment on above: Order Comment: SOLITARIO TER SPECIMEN Performed By: #### L 400.0001 ####[facility] [address] [place], [address] EPI,TRANSITION 0-5 SEEN Normal 0-5 [facility] Comment on above: Order Comment: SOLITARIO TER SPECIMEN Performed By: #### L 400.0001 ####[facility] [address] [place], [address] WBC 0-5 SEEN Normal 0-5 [facility] Comment on above: Order Comment: SOLITARIO TER SPECIMEN Performed By: #### L 400.0001 ####[facility] [address] [place], [address] EPI,SQUAMOUS 0-5 SEEN Normal 5-10 [facility] Comment on above: Order Comment: SOLITARIO TER SPECIMEN Performed By: #### L 400.0001 ####[facility] [address] [place], [address] RBC 0-5 SEEN Normal 0-5 [facility] Comment on above: Order Comment: SOLITARIO TER SPECIMEN Performed By: #### L 400.0001 ####[facility] [address] [place], [address] Mucus Ql (Urine sed) 0 SEEN Normal [facility] Comment on above: Order Comment: SOLITARIO PINK SPECIMEN Performed By: #### L 400.0001 ####[facility] [address] [place], [address] Urine clarityOrdered By: Deion Levy on 03-18-2025 Clarity (U) Clear Clear [facility] Urine color determinationOrd ered By: Deion Levy on 03-18-2025 Color (U) Yellow Yellow [facility] Urine cultureOrdered By: Deion Levy on 03-18-2025 Bacteria identified Cx Nom (U) Culture exhibits no growth. [facility] Bacteria identified Cx Nom (U) Culture exhibits no growth. [facility] Urine glucose detectionOrder ed By: Deion Levy on 03-18-2025 Glucose Ql (U) Normal mg/dl Normal [facility] Urine leukocyte esterase det ection by dipstickOrdered By: Deion Levy on 03-18-2025 Leukocyte esterase Test strip Ql (U) Negative Negative [facility] Urine pHOrdered By: Deion guan on 03-18-2025 pH (U) 6.0 [pH] 5.0 - 8.0 [facility] Urine potassium measurement (moles/volume)Ordered By: Emili Lee on 03-18-2025 Potassium (U) [Moles/Vol] 31.9 mmol/L Not Establ. [facility] Urine sediment bacteria coun t by microscopy (number/high power field)Ordered By: Deion Levy on 03-18-2025 Bacteria LM.HPF (Urine sed) [#/Area] 1 /[HPF] None Seen [facility] Urine sodium measurement (mo les/volume)Ordered By: Emili Lee on 03-18-2025 Sodium (U) [Moles/Vol] 28 mmol/L Not Establ. [facility] Urine specific gravity measu rementOrdered By: Deion Levy on 03-18-2025 Specific gravity (U) [Rel density] 1.015 1.002-1.030 [facility] Urine urobilinogen measureme ntOrdered By: Deion Levy on 03-18-2025 Urobilinogen Ql (U) Normal mg/dl Normal [facility] White blood cell (WBC) count Ordered By: Deion Levy on 03-18-2025 WBC (Bld) [#/Vol] 9.9 10*3/uL 4.4-11.0 [facility] White blood cell countOrdere d By: Deion Levy on 03-18-2025 White blood cell count 0-5 SEEN /hpf 0-5 [facility] CTA Chst, Abd, Pel W and/or WOon 03-17-2025 CTA Chst, Abd, Pel W and/or WO Normal [facility] Anion gap in Serum or Plasma Ordered By: Kamar Grimes on 03-10-2025 Anion gap [Moles/Vol] 12 mmol/L -15 [facility] BUN/creatinine ratioOrdered By: Kamar Grimes on 03-10-2025 Urea nitrogen/Creatinine [Mass ratio] 27.2 mg/mg High 10-20 [facility] Basic Metabolic Profile (BMP )on 03-10-2025 BUN/CRE 27.2 RATIO High 10-20 [facility] Comment on above: Order Comment: Order Date: 03/05/25Order Info: 0667- - BMP Performed By: #### L 500.2500 ####[facility] [address] [place], [address] Calcium [Mass/Vol] 9.4 mg/dL Normal 7.6-11.0 [facility] Comment on above: Order Comment: Order Date: 03/05/25Order Info: 0667- - BMP Performed By: #### L 500.2500 ####[facility] [address] [place], [address] Chloride [Moles/Vol] 95 mmol/L Low 98-108 [facility] Comment on above: Order Comment: Order Date: 03/05/25Order Info: 0667- - BMP Performed By: #### L 500.2500 ####[facility] [address] [place], [address] CO2 [Moles/Vol] 31.4 mmol/L Normal 21.0-32.0 [facility] Comment on above: Order Comment: Order Date: 03/05/25Order Info: 666-07 - BMP Performed By: #### L 500.2500 ####[facility] [address] [place], [address] Creatinine [Mass/Vol] 1.03 mg/dL Normal 0.70-1.20 [facility] Comment on above: Order Comment: Order Date: 03/05/25Order Info: 666-07 - BMP Performed By: #### L 500.2500 ####[facility] [address] [place], [address] GAP 12 Normal 5-15 [facility] Comment on above: Order Comment: Order Date: 03/05/25Order Info: 666-07 - BMP Performed By: #### L 500.2500 ####[facility] [address] [place], [address] GFR/1.73 sq M.predicted among non-blacks MDRD (S/P/Bld) [Vol rate/Area] 56 mL/min/{1.73_m2} Low >60 [facility] Comment on above: Order Comment: Order Date: 03/05/25Order Info: 666-07 - BMP Result Comment: mL/m in/1.73m2 CKD-EPI Creatinine Equation (2020) Performed By: #### L 500.2500 ####[facility] [address] [place], [address] Glucose [Mass/Vol] 79 mg/dL Normal 70-99 [facility] Comment on above: Order Comment: Order Date: 03/05/25Order Info: 666-07 - BMP Performed By: #### L 500.2500 ####[facility] [address] [place], [address] Potassium [Moles/Vol] 4.3 mmol/L Normal 3.3-5.1 [facility] Comment on above: Order Comment: Order Date: 03/05/25Order Info: 0667-1 - BMP Performed By: #### L 500.2500 ####[facility] [address] [place], [place], [address] Sodium [Moles/Vol] 138 mmol/L Normal 133-145 [facility] Comment on above: Order Comment: Order Date: 03/05/25Order Info: 0667 - BMP Performed By: #### L 500.2500 ####[facility] [address] [place], [address] Urea nitrogen [Mass/Vol] 28 mg/dL High 4-19 [facility] Comment on above: Order Comment: Order Date: 03/05/25Order Info: 0667- - BMP Performed By: #### L 500.2500 ####[facility] [address] [place], [address] Carbon dioxide, total [Moles /volume] in Central venous bloodOrdered By: Kamar Grimes on 03-10-2025 CO2 [Moles/Vol] 31.4 mmol/L 21.0-32.0 [facility] Chloride assayOrdered By: Jennifer Grimes on 03-10-2025 Chloride [Moles/Vol] 95 mmol/L Low 98-108 [facility] Glomerular filtration rate ( GFR) estimation/1.73 sq m using serum, plasma, or whole bOrdered By: Kamar Grimes on 03-10-2025 GFR/1.73 sq M.predicted among non-blacks MDRD (S/P/Bld) [Vol rate/Area] 56 mL/min/{1.73_m2} Low >60 [facility] Comment on above: mL/min/1.73m2 CKD-EP I Creatinine Equation (2020) Potassium measurement (mass/ volume)Ordered By: Kamar Grimes on 03-10-2025 Potassium (Unsp spec) [Mass/Vol] 4.3 mmol/L 3.3-5.1 [facility] Serum creatinine measurement (mass/volume)Ordered By: Kamar Grimes on 03-10-2025 Creatinine [Mass/Vol] 1.03 mg/dL 0.70-1.20 [facility] Serum glucose measurement (m ass/volume)Ordered By: Kamar Grimes on 03-10-2025 Glucose [Mass/Vol] 79 mg/dL 70-99 [facility] Serum or plasma calcium lisa urement (mass/volume)Ordered By: Kamar Grimes on 03-10-2025 Calcium [Mass/Vol] 9.4 mg/dL 7.6-11.0 [facility] Serum or plasma urea nitroge n measurement (mass/volume)Ordered By: Kamar Grimes on 03-10-2025 Urea nitrogen [Mass/Vol] 28 mg/dL High 4-19 [facility] Sodium levelOrdered By: Kamar Grimes on 03-10-2025 Sodium [Moles/Vol] 138 mmol/L 133-145 [facility] Anion gap in Serum or Plasma Ordered By: Kamar Grimes on 03-04-2025 Anion gap [Moles/Vol] 10 mmol/L 5-15 [facility] BUN/creatinine ratioOrdered By: Kamar Grimes on 03-04-2025 Urea nitrogen/Creatinine [Mass ratio] 36.5 mg/mg High 10-20 [facility] Bilirubin, totalOrdered By: Kamar Grimes on 03-04-2025 Bilirubin [Mass/Vol] 0.35 mg/dL 0.00-1.30 [facility] Carbon dioxide, total [Moles /volume] in Central venous bloodOrdered By: Kamar Grimes on 03-04-2025 CO2 [Moles/Vol] 34.8 mmol/L High 21.0-32.0 [facility] Chloride assayOrdered By: Jennifer Grimes on 03-04-2025 Chloride [Moles/Vol] 95 mmol/L Low 98-108 [facility] Comprehensive Metabolic Prof ilon 03-04-2025 Albumin [Mass/Vol] 3.7 g/dL Normal 3.4-4.8 [facility] Comment on above: Order Comment: Order Date: 02/18/25Order Info: 0786-1 - CMPOrder Info: [id number] - MG Performed By: #### L 500.4050, L501.5200 ####[facility] [address] [place], [address] Albumin/Globulin [Mass ratio] 1.3 {ratio} Normal 0.9-2.4 [facility] Comment on above: Order Comment: Order Date: 02/18/25Order Info: 0786-1 - CMPOrder Info: [id number] - MG Performed By: #### L 500.4050, L501.5200 ####[facility] [address] [place], [address] ALK PHOS 125 U/L High 35-104 [facility] Comment on above: Order Comment: Order Date: 02/18/25Order Info: 86-1 - CMPOrder Info: [id number] - MG Performed By: #### L 500.4050, L501.5200 ####[facility] [address] [place], [address] ALT [Catalytic activity/Vol] 22 U/L Normal <=34 [facility] Comment on above: Order Comment: Order Date: 02/18/25Order Info: 0786-1 - CMPOrder Info: [id number] - MG Performed By: #### L 500.4050, L501.5200 ####[facility] [address] [place], [address] AST [Catalytic activity/Vol] 28 U/L Normal <=31 [facility] Comment on above: Order Comment: Order Date: 02/18/25Order Info: 0786-1 - CMPOrder Info: [id number] - MG Performed By: #### L 500.4050, L501.5200 ####[facility] [address] [place], [address] Bilirubin [Mass/Vol] 0.35 mg/dL Normal 0.00-1.30 [facility] Comment on above: Order Comment: Order Date: 02/18/25Order Info: 0786-1 - CMPOrder Info: [id number] - MG Performed By: #### L 500.4050, L501.5200 ####[facility] [address] [place], [address] BUN/CRE 36.5 RATIO High 10-20 [facility] Comment on above: Order Comment: Order Date: 02/18/25Order Info: 0786-1 - CMPOrder Info: [id number] - MG Performed By: #### L 500.4050, L501.5200 ####[facility] [address] [place], [address] Calcium [Mass/Vol] 9.2 mg/dL Normal 7.6-11.0 [facility] Comment on above: Order Comment: Order Date: 02/18/25Order Info: 0786-1 - CMPOrder Info: [id number] - MG Performed By: #### L 500.4050, L501.5200 ####[facility] [address] [place], [address] Chloride [Moles/Vol] 95 mmol/L Low 98-108 [facility] Comment on above: Order Comment: Order Date: 02/18/25Order Info: 0786-1 - CMPOrder Info: [id number] - MG Performed By: #### L 500.4050, L501.5200 ####[facility] [address] [place], [address] CO2 [Moles/Vol] 34.8 mmol/L High 21.0-32.0 [facility] Comment on above: Order Comment: Order Date: 02/18/25Order Info: 0786-1 - CMPOrder Info: [id number] - MG Performed By: #### L 500.4050, L501.5200 ####[facility] [address] [place], [address] Creatinine [Mass/Vol] 1.73 mg/dL High 0.70-1.20 [facility] Comment on above: Order Comment: Order Date: 02/18/25Order Info: 0786-1 - CMPOrder Info: [id number] - MG Performed By: #### L 500.4050, L501.5200 ####[facility] [address] [place], [address] GAP 10 Normal 5-15 [facility] Comment on above: Order Comment: Order Date: 02/18/25Order Info: 0786-1 - CMPOrder Info: [id number] - MG Performed By: #### L 500.4050, L501.5200 ####[facility] [address] [place], [address] GFR/1.73 sq M.predicted among non-blacks MDRD (S/P/Bld) [Vol rate/Area] 30 mL/min/{1.73_m2} Low >60 [facility] Comment on above: Order Comment: Order Date: 02/18/25Order Info: 0786-1 - CMPOrder Info: [id number] - MG Result Comment: mL/m in/1.73m2 CKD-EPI Creatinine Equation (2020) Performed By: #### L 500.4050, L501.5200 ####[facility] [address] [place], [address] Globulin (S) [Mass/Vol] 2.9 g/dL Normal 2.2-4.2 [facility] Comment on above: Order Comment: Order Date: 02/18/25Order Info: 0786-1 - CMPOrder Info: [id number] - MG Performed By: #### L 500.4050, L501.5200 ####[facility] [address] [place], [address] Glucose [Mass/Vol] 93 mg/dL Normal 70-99 [facility] Comment on above: Order Comment: Order Date: 02/18/25Order Info: 0786-1 - CMPOrder Info: [id number] - MG Performed By: #### L 500.4050, L501.5200 ####[facility] [address] [place], [address] Potassium [Moles/Vol] 4.0 mmol/L Normal 3.3-5.1 [facility] Comment on above: Order Comment: Order Date: 02/18/25Order Info: 0786-1 - CMPOrder Info: [id number] - MG Performed By: #### L 500.4050, L501.5200 ####[facility] [address] [place], [address] Sodium [Moles/Vol] 139 mmol/L Normal 133-145 [facility] Comment on above: Order Comment: Order Date: 02/18/25Order Info: 0786-1 - CMPOrder Info: [id number] - MG Performed By: #### L 500.4050, L501.5200 ####[facility] [address] [place], [address] T PROT 6.6 g/dL Normal 5.9-8.4 [facility] Comment on above: Order Comment: Order Date: 02/18/25Order Info: 0786-1 - CMPOrder Info: [id number] - MG Performed By: #### L 500.4050, L501.5200 ####[facility] [address] [place], [address] Urea nitrogen [Mass/Vol] 63 mg/dL High 4-19 [facility] Comment on above: Order Comment: Order Date: 02/18/25Order Info: 0786-1 - CMPOrder Info: [id number] - MG Performed By: #### L 500.4050, L501.5200 ####[facility] [address] [place], [address] Echo Complete W/ Contraston 03-04-2025 Echo Complete W/ Contrast Normal [facility] Echocardiogram study reportO rdered By: Carlene Salazar on 03-04-2025 Study report [facility] [address] [place] [address] Echo Complete W/ Contrast 03/04/25 0957 MR#: [id number] Acct: [id number] Name: OSCAR WOO Rep #:[id number] : 1950 75 From: Carlene Salazar MD Attending Dr: Dr. Kamra Grimes MD atus: REG CLI Ordering Dr: Kamar Grimes MD Date: 08/27 Location: [facility] Sex: F C Admitted: Reason For Study [...] 10.9 E/E' med: 16.1 MV E/A: 0.98 _ MV V2 max: 93.2 cm/sec MV P1/2t [...] The study was technically difficult. Ordering Physician: Kamar Grimes Referring Physician: Kamar Grimes Performed By: Xavier Castano RCS 03/04/25 1237 Date _ Carlene Salazar MD CC: Dr. Kamar Grimes MD ~ Date Dictated: 03/04/25956 Date Transcribed: 03/04/25 1237 Quality Measurement Specialist: Signed [facility] Work Phone: Glomerular filtration rate ( GFR) estimation/1.73 sq m using serum, plasma, or whole bOrdered By: Kamar Grimes on 03-04-2025 GFR/1.73 sq M.predicted among non-blacks MDRD (S/P/Bld) [Vol rate/Area] 30 mL/min/{1.73_m2} Low >60 [facility] Comment on above: mL/min/1.73m2 CKD-EP I Creatinine Equation (2020) Laboratory - Chemistry and C hemistry - challengeOrdered By: Kamar Grimes on 03-04-2025 AST [Catalytic activity/Vol] 28 U/L <32 [facility] Magnesiumon 03-04-2025 Magnesium [Mass/Vol] 1.9 mg/dL Normal 1.5-2.2 [facility] Comment on above: Order Comment: Order Date: 02/18/25Order Info: 0786-1 - CMPOrder Info: [id number] - MG Performed By: #### L 500.4050, L501.5200 ####[facility] [address] [place], [address] Magnesium measurement (mass/ volume)Ordered By: Kamar Grimes on 03-04-2025 Magnesium (Unsp spec) [Mass/Vol] 1.9 mg/dL 1.5-2.2 [facility] No Panel InformationOrdered By: Kamar Grimes on 03-04-2025 28 U/L <32 [facility] Potassium measurement (mass/ volume)Ordered By: Kamar Grimes on 03-04-2025 Potassium (Unsp spec) [Mass/Vol] 4.0 mmol/L 3.3-5.1 [facility] Serum creatinine measurement (mass/volume)Ordered By: Kamar Grimes on 03-04-2025 Creatinine [Mass/Vol] 1.73 mg/dL High 0.70-1.20 [facility] Serum globulin measurementOr dered By: Kamar Grimes on 03-04-2025 Globulin (S) [Mass/Vol] 2.9 g/dL 2.2-4.2 [facility] Serum glucose measurement (m ass/volume)Ordered By: Kamar Grimes on 03-04-2025 Glucose [Mass/Vol] 93 mg/dL 70-99 [facility] Serum or plasma alanine gao otransferase (ALT) measurementOrdered By: Kamar Grimes on 03-04-2025 ALT [Catalytic activity/Vol] 22 U/L <35 [facility] Serum or plasma albumin lisa urement (mass/volume)Ordered By: Kamar Grimes on 03-04-2025 Albumin [Mass/Vol] 3.7 g/dL 3.4-4.8 [facility] Serum or plasma albumin/glob ulin mass ratioOrdered By: Kamar Grimes on 03-04-2025 Albumin/Globulin [Mass ratio] 1.3 {ratio} 0.9-2.4 [facility] Serum or plasma alkaline bee sphatase measurementOrdered By: Kamar Grimes on 03-04-2025 ALP [Catalytic activity/Vol] 125 U/L High 35-104 [facility] Serum or plasma calcium lisa urement (mass/volume)Ordered By: Kamar Grimes on 03-04-2025 Calcium [Mass/Vol] 9.2 mg/dL 7.6-11.0 [facility] Serum or plasma urea nitroge n measurement (mass/volume)Ordered By: Kamar Grimes on 03-04-2025 Urea nitrogen [Mass/Vol] 63 mg/dL High 4-19 [facility] Sodium levelOrdered By: Kamar Grimes on 03-04-2025 Sodium [Moles/Vol] 139 mmol/L 133-145 [facility] Total proteinOrdered By: Esmer Grimes on 03-04-2025 Protein [Mass/Vol] 6.6 g/dL 5.9-8.4 [facility] Acid Fast Bacillus Cultureon 02-19-2025 tAFBC Normal [facility] Comment on above: Performed By: #### M 100.4001, M100.2900, M100.2000, M300.3000, L200.0400, M600.2000, M300.2000 ####[facility] [address] [place], [address] Acid Fast Bacillus Smear/Flu oron 02-19-2025 tafb Normal [facility] Comment on above: Performed By: #### M 100.4001, M100.2900, M100.2000, M300.3000, L200.0400, M600.2000, M300.2000 ####[facility] [address] [place], [address] Culture, Fungus 8482on 02-19 CUF Normal [facility] Comment on above: Performed By: #### M 100.4001, M100.2900, M100.2000, M300.3000, L200.0400, M600.2000, M300.2000 ####[facility] [address] [place], [address] Absolute lymphocyte countOrd ered By: Kamar Grimes on 02-10-2025 Lymphocytes Auto (Unsp spec) [#/Vol] 1.51 10*3/uL 0.83-4.51 [facility] Absolute neutrophil countOrd ered By: Kamar Grimes on 02-10-2025 Neutrophils (Bld) [#/Vol] 7.4 10*3/uL 2.0-7.7 [facility] Anion gap in Serum or Plasma Ordered By: Kamar Grimes on 02-10-2025 Anion gap [Moles/Vol] 14 mmol/L 5-15 [facility] Automated lymphocyte count a s percentage of total leukocytesOrdered By: Kamar Grimes on 02-10-2025 Lymphocytes/100 WBC Auto (Unsp spec) 15.2 % Low 19-41 [facility] BUN/creatinine ratioOrdered By: Kamar Grimes on 02-10-2025 Urea nitrogen/Creatinine [Mass ratio] 26.9 mg/mg High 10-20 [facility] Basophil percentageOrdered B y: Kamar Grimes on 02-10-2025 Basophils/100 WBC (Bld) 0.5 % 0-1 [facility] Bilirubin, totalOrdered By: Kamar Grimes on 02-10-2025 Bilirubin [Mass/Vol] 0.39 mg/dL 0.00-1.30 [facility] CBC W/Diff, Automatedon 01-31 Absolute Lymph 1.51 X10 3/uL Normal 0.83-4.51 [facility] Comment on above: Order Comment: Order Date: 02/10/25Order Info: 0184-1 - CBCD Performed By: #### L 500.4050, L501.5200, L100.0100 ####[facility] [address] [place], [address] Absolute Neut 7.4 X10 3/uL Normal 2.0-7.7 [facility] Comment on above: Order Comment: Order Date: 02/10/25Order Info: 0184-1 - CBCD Performed By: #### L 500.4050, L501.5200, L100.0100 ####[facility] [address] [place], [address] Basophils/100 WBC (Bld) 0.5 % Normal 0-1 [facility] Comment on above: Order Comment: Order Date: 02/10/25Order Info: 0184-1 - CBCD Performed By: #### L 500.4050, L501.5200, L100.0100 ####[facility] [address] [place], [address] Eosinophils/100 WBC (Bld) 2.4 % Normal 0-5 [facility] Comment on above: Order Comment: Order Date: 02/10/25Order Info: 0184-1 - CBCD Performed By: #### L 500.4050, L501.5200, L100.0100 ####[facility] [address] [place], [address] Erythrocyte distribution width (RBC) [Ratio] 13.6 % Normal 11.6-14.6 [facility] Comment on above: Order Comment: Order Date: 02/10/25Order Info: 0184-1 - CBCD Performed By: #### L 500.4050, L501.5200, L100.0100 ####[facility] [address] [place], [address] Hematocrit (Bld) [Volume fraction] 43.3 % Normal 37-47 [facility] Comment on above: Order Comment: Order Date: 02/10/25Order Info: 018-1 - CBCD Performed By: #### L 500.4050, L501.5200, L100.0100 ####[facility] [address] [place], [address] Hemoglobin (Bld) [Mass/Vol] 13.7 g/dL Normal 12.0-15.0 [facility] Comment on above: Order Comment: Order Date: 02/10/25Order Info: 0184-1 - CBCD Performed By: #### L 500.4050, L501.5200, L100.0100 ####[facility] [address] [place], [address] IG% 0.400 Normal 0.0-0.9 [facility] Comment on above: Order Comment: Order Date: 02/10/25Order Info: 0184-1 - CBCD Result Comment: IG% - Immature Granulocytes (promyelocytes, myelocytes andmetamyelocytes) > 1% indicates that a LEFT SHIFT is Present. Performed By: #### L 500.4050, L501.5200, L100.0100 ####[facility] [address] [place], [address] Lymphocytes/100 WBC (Bld) 15.2 % Low 19-41 [facility] Comment on above: Order Comment: Order Date: 02/10/25Order Info: 0184-1 - CBCD Performed By: #### L 500.4050, L501.5200, L100.0100 ####[facility] [address] [place], [address] MCH (RBC) [Entitic mass] 29.1 pg Normal 27.0-32.0 [facility] Comment on above: Order Comment: Order Date: 02/10/25Order Info: 0184-1 - CBCD Performed By: #### L 500.4050, L501.5200, L100.0100 ####[facility] [address] [place], [address] MCHC (RBC) [Mass/Vol] 31.6 g/dL Low 32-36 [facility] Comment on above: Order Comment: Order Date: 02/10/25Order Info: 0184-1 - CBCD Performed By: #### L 500.4050, L501.5200, L100.0100 ####[facility] [address] [place], [address] MCV (RBC) [Entitic vol] 92.1 fL Normal 81-99 [facility] Comment on above: Order Comment: Order Date: 02/10/25Order Info: 0184-1 - CBCD Performed By: #### L 500.4050, L501.5200, L100.0100 ####[facility] [address] [place], [address] Monocytes/100 WBC (Bld) 7.3 % Normal 0-10 [facility] Comment on above: Order Comment: Order Date: 02/10/25Order Info: 0184-1 - CBCD Performed By: #### L 500.4050, L501.5200, L100.0100 ####[facility] [address] [place], [address] Neutrophils/100 WBC (Bld) 74.2 % High 47-70 [facility] Comment on above: Order Comment: Order Date: 02/10/25Order Info: 4-1 - CBCD Performed By: #### L 500.4050, L501.5200, L100.0100 ####[facility] [address] [place], [address] Nucleated RBC (Bld) [#/Vol] 0 10*3/uL Normal 0-5 [facility] Comment on above: Order Comment: Order Date: 02/10/25Order Info: 018- - CBCD Performed By: #### L 500.4050, L501.5200, L100.0100 ####[facility] [address] [place], [address] Platelet mean volume (Bld) [Entitic vol] 10.8 fL Normal 6.2-12.0 [facility] Comment on above: Order Comment: Order Date: 02/10/25Order Info: 018-1 - CBCD Performed By: #### L 500.4050, L501.5200, L100.0100 ####[facility] [address] [place], [address] Platelets (Bld) [#/Vol] 166 10*3/uL Normal 150-450 [facility] Comment on above: Order Comment: Order Date: 02/10/25Order Info: 0184-1 - CBCD Performed By: #### L 500.4050, L501.5200, L100.0100 ####[facility] [address] [place], [address] RBC (Bld) [#/Vol] 4.70 10*6/uL Normal 4.2-5.4 [facility] Comment on above: Order Comment: Order Date: 02/10/25Order Info: 0184-1 - CBCD Performed By: #### L 500.4050, L501.5200, L100.0100 ####[facility] [address] [place], [address] RDW SD 45.9 fl High 35.1-43.9 [facility] Comment on above: Order Comment: Order Date: 02/10/25Order Info: 0184- - CBCD Performed By: #### L 500.4050, L501.5200, L100.0100 ####[facility] [address] [place], [address] WBC (Bld) [#/Vol] 9.9 10*3/uL Normal 4.4-11.0 [facility] Comment on above: Order Comment: Order Date: 02/10/25Order Info: 0184-1 - CBCD Performed By: #### L 500.4050, L501.5200, L100.0100 ####[facility] [address] [place], [address] Carbon dioxide, total [Moles /volume] in Central venous bloodOrdered By: Kamar Grimes on 02-10-2025 CO2 [Moles/Vol] 29.4 mmol/L 21.0-32.0 [facility] Chest PA and Lateralon 02-10 Chest PA and Lateral Normal [facility] Chloride assayOrdered By: Jennifer Grimes on 02-10-2025 Chloride [Moles/Vol] 96 mmol/L Low 98-108 [facility] Comprehensive Metabolic Prof ilon 02-10-2025 Albumin [Mass/Vol] 3.9 g/dL Normal 3.4-4.8 [facility] Comment on above: Order Comment: Order Date: 02/10/25Order Info: 0786-1 - CMPOrder Info: [id number] - MG Performed By: #### L 500.4050, L501.5200, L100.0100 ####[facility] [address] [place], [address] Albumin/Globulin [Mass ratio] 1.3 {ratio} Normal 0.9-2.4 [facility] Comment on above: Order Comment: Order Date: 02/10/25Order Info: 0786-1 - CMPOrder Info: [id number] - MG Performed By: #### L 500.4050, L501.5200, L100.0100 ####[facility] [address] [place], [address] ALK PHOS 147 U/L High 35-104 [facility] Comment on above: Order Comment: Order Date: 02/10/25Order Info: 0786-1 - CMPOrder Info: [id number] - MG Performed By: #### L 500.4050, L501.5200, L100.0100 ####[facility] [address] [place], [address] ALT [Catalytic activity/Vol] 27 U/L Normal <=34 [facility] Comment on above: Order Comment: Order Date: 02/10/25Order Info: 0786-1 - CMPOrder Info: [id number] - MG Performed By: #### L 500.4050, L501.5200, L100.0100 ####[facility] [address] [place], [address] AST [Catalytic activity/Vol] 36 U/L High <=31 [facility] Comment on above: Order Comment: Order Date: 02/10/25Order Info: 0786-1 - CMPOrder Info: [id number] - MG Performed By: #### L 500.4050, L501.5200, L100.0100 ####[facility] [address] [place], [address] Bilirubin [Mass/Vol] 0.39 mg/dL Normal 0.00-1.30 [facility] Comment on above: Order Comment: Order Date: 02/10/25Order Info: 0786-1 - CMPOrder Info: [id number] - MG Performed By: #### L 500.4050, L501.5200, L100.0100 ####[facility] [address] [place], [address] BUN/CRE 26.9 RATIO High 10-20 [facility] Comment on above: Order Comment: Order Date: 02/10/25Order Info: 0786-1 - CMPOrder Info: [id number] - MG Performed By: #### L 500.4050, L501.5200, L100.0100 ####[facility] [address] [place], [address] Calcium [Mass/Vol] 9.8 mg/dL Normal 7.6-11.0 [facility] Comment on above: Order Comment: Order Date: 02/10/25Order Info: 0786-1 - CMPOrder Info: [id number] - MG Performed By: #### L 500.4050, L501.5200, L100.0100 ####[facility] [address] [place], [address] Chloride [Moles/Vol] 96 mmol/L Low 98-108 [facility] Comment on above: Order Comment: Order Date: 02/10/25Order Info: 0786-1 - CMPOrder Info: [id number] - MG Performed By: #### L 500.4050, L501.5200, L100.0100 ####[facility] [address] [place], [address] CO2 [Moles/Vol] 29.4 mmol/L Normal 21.0-32.0 [facility] Comment on above: Order Comment: Order Date: 02/10/25Order Info: 0786-1 - CMPOrder Info: [id number] - MG Performed By: #### L 500.4050, L501.5200, L100.0100 ####[facility] [address] [place], [address] Creatinine [Mass/Vol] 0.99 mg/dL Normal 0.70-1.20 [facility] Comment on above: Order Comment: Order Date: 02/10/25Order Info: 0786-1 - CMPOrder Info: [id number] - MG Performed By: #### L 500.4050, L501.5200, L100.0100 ####[facility] [address] [place], [address] GAP 14 Normal 5-15 [facility] Comment on above: Order Comment: Order Date: 02/10/25Order Info: 0786-1 - CMPOrder Info: [id number] - MG Performed By: #### L 500.4050, L501.5200, L100.0100 ####[facility] [address] [place], [address] GFR/1.73 sq M.predicted among non-blacks MDRD (S/P/Bld) [Vol rate/Area] 59 mL/min/{1.73_m2} Low >60 [facility] Comment on above: Order Comment: Order Date: 02/10/25Order Info: 0786-1 - CMPOrder Info: [id number] - MG Result Comment: mL/m in/1.73m2 CKD-EPI Creatinine Equation (2020) Performed By: #### L 500.4050, L501.5200, L100.0100 ####[facility] [address] [place], [address] Globulin (S) [Mass/Vol] 3.1 g/dL Normal 2.2-4.2 [facility] Comment on above: Order Comment: Order Date: 02/10/25Order Info: 0786-1 - CMPOrder Info: [id number] - MG Performed By: #### L 500.4050, L501.5200, L100.0100 ####[facility] [address] [place], [address] Glucose [Mass/Vol] 101 mg/dL High 70-99 [facility] Comment on above: Order Comment: Order Date: 02/10/25Order Info: 0786-1 - CMPOrder Info: [id number] - MG Performed By: #### L 500.4050, L501.5200, L100.0100 ####[facility] [address] [place], [address] Potassium [Moles/Vol] 4.4 mmol/L Normal 3.3-5.1 [facility] Comment on above: Order Comment: Order Date: 02/10/25Order Info: [id number]- - CMPOrder Info: [id number] - MG Performed By: #### L 500.4050, L501.5200, L100.0100 ####[facility] [address] [place], [address] Sodium [Moles/Vol] 140 mmol/L Normal 133-145 [facility] Comment on above: Order Comment: Order Date: 02/10/25Order Info: [id number]- - CMPOrder Info: [id number] - MG Performed By: #### L 500.4050, L501.5200, L100.0100 ####[facility] [address] [place], [address] T PROT 7.0 g/dL Normal 5.9-8.4 [facility] Comment on above: Order Comment: Order Date: 02/10/25Order Info: [id number] - CMPOrder Info: [id number] - MG Performed By: #### L 500.4050, L501.5200, L100.0100 ####[facility] [address] [place], [address] Urea nitrogen [Mass/Vol] 27 mg/dL High 4-19 [facility] Comment on above: Order Comment: Order Date: 02/10/25Order Info: [id number] - CMPOrder Info: [id number] - MG Performed By: #### L 500.4050, L501.5200, L100.0100 ####[facility] [address] [place], [address] Eosinophil percentageOrdered By: Kamar Grimes on 02-10-2025 Eosinophils/100 WBC (Bld) 2.4 % 0-5 [facility] Erythrocyte distribution wid th ratioOrdered By: Kamar Grimes on 02-10-2025 Erythrocyte distribution width (RBC) [Ratio] 13.6 % 11.6-14.6 [facility] Erythrocyte distribution wid th standard deviationOrdered By: Kamar Grimes on 02-10-2025 Erythrocyte distribution width (RBC) [Ratio] 45.9 fl High 35.1-43.9 [facility] Glomerular filtration rate ( GFR) estimation/1.73 sq m using serum, plasma, or whole bOrdered By: Kamar Grimes on 02-10-2025 GFR/1.73 sq M.predicted among non-blacks MDRD (S/P/Bld) [Vol rate/Area] 59 mL/min/{1.73_m2} Low >60 [facility] Comment on above: mL/min/1.73m2 CKD-EP I Creatinine Equation (2020) Hematocrit Auto (Bld) [Volum e fraction]Ordered By: Kamar Grimes on 02-10-2025 Hematocrit (Bld) [Volume fraction] 43.3 % 37-47 [facility] Hemoglobin measurementOrdere d By: Kamar Grimes on 02-10-2025 Hemoglobin (Bld) [Mass/Vol] 13.7 g/dL 12.0-15.0 [facility] Immature granulocytes/100 WB C Auto (Bld)Ordered By: Kamar Grimes on 02-10-2025 Immature granulocytes/100 WBC (Bld) 0.400 % 0.0-0.9 [facility] Comment on above: IG% - Immature Granu locytes (promyelocytes, myelocytes and metamyelocytes) > 1% indicates that a LEFT SHIFT is Present. Laboratory - Chemistry and C hemistry - challengeOrdered By: Kamar Grimes on 08-11-2025 AST [Catalytic activity/Vol] 36 U/L High <32 [facility] MCV (mean corpuscular volume ) determinationOrdered By: Kamar Grimes on 02-10-2025 MCV (RBC) [Entitic vol] 92.1 fL 81-99 [facility] Magnesiumon 02-10-2025 Magnesium [Mass/Vol] 1.7 mg/dL Normal 1.5-2.2 [facility] Comment on above: Order Comment: Order Date: 02/10/25Order Info: [id number] - CMPOrder Info: [id number] - MG Performed By: #### L 500.4050, L501.5200, L100.0100 ####[facility] [address] [place], [place], [id number] Magnesium measurement (mass/ volume)Ordered By: Kamar Grimes on 02-10-2025 Magnesium (Unsp spec) [Mass/Vol] 1.7 mg/dL 1.5-2.2 [facility] Mean corpuscular hemoglobin (MCH) determinationOrdered By: Kamar Grimes on 02-10-2025 MCH (RBC) [Entitic mass] 29.1 pg 27.0-32.0 [facility] Mean corpuscular hemoglobin concentration (MCHC) determinationOrdered By: Kamar Grimes on 02-10-2025 MCHC (RBC) [Mass/Vol] 31.6 g/dL Low 32-36 [facility] Mean platelet volume determi nationOrdered By: Kamar Grimes on 02-10-2025 Platelet mean volume (Bld) [Entitic vol] 10.8 fL 6.2-12.0 [facility] Monocyte percentageOrdered B y: Kamar Grimes on 02-10-2025 Monocytes/100 WBC (Bld) 7.3 % 0-10 [facility] Natriuretic peptide.B prohor mac N-Terminal [Mass/volume] in Serum or PlasmaOrdered By: Kamar Grimes on 02-10-2025 Natriuretic peptide.B prohormone N-Terminal [Mass/Vol] 1101 pg/mL <1800 [facility] Comment on above: Heart Failure Unlike ly: < 300 pg/mLHeart Failure Likely< 50 Years: > 450 pg/mL50-75 Years: > 900 pg/mL>75 Years: > 1800 pg/mL Neutrophil percentageOrdered By: Kamar Grimes on 02-10-2025 Neutrophils/100 WBC (Bld) 74.2 % High 47-70 [facility] No Panel InformationOrdered By: Kamar Grimes on 02-10-2025 36 U/L High <32 [facility] Nucleated red blood cell per centageOrdered By: Kamar Grimes on 02-10-2025 Nucleated RBC/100 WBC (Bld) [Ratio] 0 % 0-5 [facility] Platelet countOrdered By: Jennifer Grimes on 02-10-2025 Platelets (Bld) [#/Vol] 166 10*3/uL 150-450 [facility] Potassium measurement (mass/ volume)Ordered By: Kamar Grimes on 02-10-2025 Potassium (Unsp spec) [Mass/Vol] 4.4 mmol/L 3.3-5.1 [facility] Pro- Brain NATRIURETIC PEPTI Rita 02-10-2025 Natriuretic peptide B (Bld) [Mass/Vol] 1101 pg/mL Normal <=1800 [facility] Comment on above: Order Comment: Order Date: 02/10/25Order Info: [id number] - CMPOrder Info: [id number] - MG Result Comment: Hear t Failure Unlikely: < 300 pg/mLHeart Failure Likely< 50 Years: > 450 pg/mL50-75 Years: > 900 pg/mL>75 Years: > 1800 pg/mL Performed By: #### L 503.7505 ####[facility] [address] [place], [place], [id number] RBC Auto (Bld) [#/Vol]Ordere d By: Kamar Grimes on 02-10-2025 RBC (Bld) [#/Vol] 4.70 10*6/uL 4.2-5.4 [facility] Serum creatinine measurement (mass/volume)Ordered By: Kamar Grimes on 02-10-2025 Creatinine [Mass/Vol] 0.99 mg/dL 0.70-1.20 [facility] Serum globulin measurementOr dered By: Kamar Grimes on 02-10-2025 Globulin (S) [Mass/Vol] 3.1 g/dL 2.2-4.2 [facility] Serum glucose measurement (m ass/volume)Ordered By: Kamar Grimes on 02-10-2025 Glucose [Mass/Vol] 101 mg/dL High 70-99 [facility] Serum or plasma alanine gao otransferase (ALT) measurementOrdered By: Kamar Grimes on 02-10-2025 ALT [Catalytic activity/Vol] 27 U/L <35 [facility] Serum or plasma albumin lisa urement (mass/volume)Ordered By: Kamar Grimes on 02-10-2025 Albumin [Mass/Vol] 3.9 g/dL 3.4-4.8 [facility] Serum or plasma albumin/glob ulin mass ratioOrdered By: Kamar Grimes on 02-10-2025 Albumin/Globulin [Mass ratio] 1.3 {ratio} 0.9-2.4 [facility] Serum or plasma alkaline bee sphatase measurementOrdered By: Kamar Grimes on 02-10-2025 ALP [Catalytic activity/Vol] 147 U/L High 35-104 [facility] Serum or plasma calcium lisa urement (mass/volume)Ordered By: Kamar Grimes on 02-10-2025 Calcium [Mass/Vol] 9.8 mg/dL 7.6-11.0 [facility] Serum or plasma urea nitroge n measurement (mass/volume)Ordered By: Kamar Grimes on 02-10-2025 Urea nitrogen [Mass/Vol] 27 mg/dL High 4-19 [facility] Sodium levelOrdered By: Kamar Grimes on 02-10-2025 Sodium [Moles/Vol] 140 mmol/L 133-145 [facility] Total proteinOrdered By: Esmer Grimes on 02-10-2025 Protein [Mass/Vol] 7.0 g/dL 5.9-8.4 [facility] White blood cell (WBC) count Ordered By: Kamar Grimes on 02-10-2025 WBC (Bld) [#/Vol] 9.9 10*3/uL 4.4-11.0 [facility] Acid Fast Bacillus Cultureon 12-06-2024 tAFBC Normal [facility] Comment on above: Performed By: #### M 100.3000, M300.2000, M600.2200, M300.3000, M100.2000, M600.2000, M100.4001 ####[facility] [address] [place], [address] Acid Fast Bacillus Smear/Flu oron 11-06-2024 tafb Normal [facility] Comment on above: Performed By: #### M 100.3000, M300.2000, M600.2200, M300.3000, M100.2000, M600.2000, M100.4001 ####[facility] [address] [place], [address] Culture, Fungus 8482on 11-06 [facility] Comment on above: Performed By: #### M 100.3000, M300.2000, M600.2200, M300.3000, M100.2000, M600.2000, M100.4001 ####[facility] [address] [place], [address] Fungus Stain 8136on 11-07-19 25 FUNST Normal [facility] Comment on above: Performed By: #### M 100.3000, M300.2000, M600.2200, M300.3000, M100.2000, M600.2000, M100.4001 ####[facility] [address] [place], [address] Basic Metabolic Profile (BMP )on 10-31-2024 BUN Normal - [facility] Comment on above: Result Comment: Canc elled via OM: Order cancelled - Patient discharged Performed By: #### L 100.0100, L500.2500 ####[facility] [address] [place], [address] BUN/CRE Normal - [facility] Comment on above: Result Comment: Canc elled via OM: Order cancelled - Patient discharged Performed By: #### L 100.0100, L500.2500 ####[facility] [address] [place], [address] Calcium Normal 7.6-11.0 [facility] Comment on above: Result Comment: Canc elled via OM: Order cancelled - Patient discharged Performed By: #### L 100.0100, L500.2500 ####[facility] [address] [place], [address] CL Normal 98-108 [facility] Comment on above: Result Comment: Canc elled via OM: Order cancelled - Patient discharged Performed By: #### L 100.0100, L500.2500 ####[facility] [address] [place], [address] CO2 Normal 21.0-32.0 [facility] Comment on above: Result Comment: Canc elled via OM: Order cancelled - Patient discharged Performed By: #### L 100.0100, L500.2500 ####[facility] [address] [place], [address] CREAT,SERUM Normal 0.70-1.20 [facility] Comment on above: Result Comment: Canc elled via OM: Order cancelled - Patient discharged Performed By: #### L 100.0100, L500.2500 ####[facility] [address] [place], [address] eGFR Normal >60 [facility] Comment on above: Result Comment: Canc elled via OM: Order cancelled - Patient discharged Performed By: #### L 100.0100, L500.2500 ####[facility] [address] [place], [address] GAP Normal 5-15 [facility] Comment on above: Result Comment: Canc elled via OM: Order cancelled - Patient discharged Performed By: #### L 100.0100, L500.2500 ####[facility] [address] [place], [address] GLU Normal 70-99 [facility] Comment on above: Result Comment: Canc elled via OM: Order cancelled - Patient discharged Performed By: #### L 100.0100, L500.2500 ####[facility] [address] [place], [address] Potassium Normal 3.3-5.1 [facility] Comment on above: Result Comment: Canc elled via OM: Order cancelled - Patient discharged Performed By: #### L 100.0100, L500.2500 ####[facility] [address] [place], [address] Basic Metabolic Profile (BMP) Normal 133-145 [facility] Comment on above: Result Comment: Canc elled via OM: Order cancelled - Patient discharged Performed By: #### L 100.0100, L500.2500 ####[facility] [address] [place], [address] CBC W/Diff, Automatedon 05-0 Absolute Neut Normal 2.0-7.7 [facility] Comment on above: Result Comment: Canc elled via OM: Order cancelled - Patient discharged Performed By: #### L 100.0100, L500.2500 ####[facility] [address] [place], [address] HCT Normal 37-47 [facility] Comment on above: Result Comment: Canc elled via OM: Order cancelled - Patient discharged Performed By: #### L 100.0100, L500.2500 ####[facility] [address] [place], [address] HGB Normal 12.0-15.0 [facility] Comment on above: Result Comment: Canc elled via OM: Order cancelled - Patient discharged Performed By: #### L 100.0100, L500.2500 ####[facility] [address] [place], [address] MCH Normal 27.0-32.0 [facility] Comment on above: Result Comment: Canc elled via OM: Order cancelled - Patient discharged Performed By: #### L 100.0100, L500.2500 ####[facility] [address] [place], [address] MCHC Normal 32-36 [facility] Comment on above: Result Comment: Canc elled via OM: Order cancelled - Patient discharged Performed By: #### L 100.0100, L500.2500 ####[facility] [address] [place], [address] MCV Normal 81-99 [facility] Comment on above: Result Comment: Canc elled via OM: Order cancelled - Patient discharged Performed By: #### L 100.0100, L500.2500 ####[facility] [address] [place], [address] NEUT% Normal 47-70 [facility] Comment on above: Result Comment: Canc elled via OM: Order cancelled - Patient discharged Performed By: #### L 100.0100, L500.2500 ####[facility] [address] [place], [address] PLT Normal 150-450 [facility] Comment on above: Result Comment: Canc elled via OM: Order cancelled - Patient discharged Performed By: #### L 100.0100, L500.2500 ####[facility] [address] [place], [address] RBC Normal 4.2-5.4 [facility] Comment on above: Result Comment: Canc elled via OM: Order cancelled - Patient discharged Performed By: #### L 100.0100, L500.2500 ####[facility] [address] [place], [address] RDW CV Normal 11.6-14.6 [facility] Comment on above: Result Comment: Canc elled via OM: Order cancelled - Patient discharged Performed By: #### L 100.0100, L500.2500 ####[facility] [address] [place], [address] RDW SD Normal 35.1-43.9 [facility] Comment on above: Result Comment: Canc elled via OM: Order cancelled - Patient discharged Performed By: #### L 100.0100, L500.2500 ####[facility] [address] [place], [address] WBC Normal 4.4-11.0 [facility] Comment on above: Result Comment: Canc elled via OM: Order cancelled - Patient discharged Performed By: #### L 100.0100, L500.2500 ####[facility] [address] [place], [address] Acid Fast Bacillus Cultureon 10-30-2024 tAFBC [facility] Comment on above: Performed By: #### M 100.4001, M600.2000, M300.2000, M300.3000, M100.2000, M100.3000, M600.2200 ####[facility] [address] [place], [address] tAFBC [facility] Comment on above: Performed By: #### M 100.2000, M600.2200, M300.2000, M100.3000, M300.3000, M600.2000, M100.4001 ####[facility] [address] [place], [address] Acid Fast Bacillus Smear/Flu oron 10-30-2024 tafb [facility] Comment on above: Performed By: #### M 100.4001, M600.2000, M300.2000, M300.3000, M100.2000, M100.3000, M600.2200 ####[facility] [address] [place], [address] tafb [facility] Comment on above: Performed By: #### M 100.2000, M600.2200, M300.2000, M100.3000, M300.3000, M600.2000, M100.4001 ####[facility] [address] [place], [address] Culture, Fungus 8482on 10-30 [facility] Comment on above: Performed By: #### M 100.4001, M600.2000, M300.2000, M300.3000, M100.2000, M100.3000, M600.2200 ####[facility] [address] [place], [address] [facility] Comment on above: Performed By: #### M 100.2000, M600.2200, M300.2000, M100.3000, M300.3000, M600.2000, M100.4001 ####[facility] [address] [place], [address] Fungus Stain 8136on 10-31-19 [facility] Comment on above: Performed By: #### M 100.4001, M600.2000, M300.2000, M300.3000, M100.2000, M100.3000, M600.2200 ####[facility] [address] [place], [address] [facility] Comment on above: Performed By: #### M 100.2000, M600.2200, M300.2000, M100.3000, M300.3000, M600.2000, M100.4001 ####[facility] [address] [place], [address] Basic Metabolic Profile (BMP )on 10-24-2024 BUN Normal 4-19 [facility] Comment on above: Result Comment: Canc elled via OM: Order cancelled - Patient discharged Performed By: #### L 500.2500, L100.0100 ####[facility] [address] [place], [address] BUN/CRE Normal 10-20 [facility] Comment on above: Result Comment: Canc elled via OM: Order cancelled - Patient discharged Performed By: #### L 500.2500, L100.0100 ####[facility] [address] [place], [address] Calcium Normal 7.6-11.0 [facility] Comment on above: Result Comment: Canc elled via OM: Order cancelled - Patient discharged Performed By: #### L 500.2500, L100.0100 ####[facility] [address] [place], [address] CL Normal 98-108 [facility] Comment on above: Result Comment: Canc elled via OM: Order cancelled - Patient discharged Performed By: #### L 500.2500, L100.0100 ####[facility] [address] [place], [address] CO2 Normal 21.0-32.0 [facility] Comment on above: Result Comment: Canc elled via OM: Order cancelled - Patient discharged Performed By: #### L 500.2500, L100.0100 ####[facility] [address] [place], [address] CREAT,SERUM Normal 0.70-1.20 [facility] Comment on above: Result Comment: Canc elled via OM: Order cancelled - Patient discharged Performed By: #### L 500.2500, L100.0100 ####[facility] [address] [place], [address] eGFR Normal >60 [facility] Comment on above: Result Comment: Canc elled via OM: Order cancelled - Patient discharged Performed By: #### L 500.2500, L100.0100 ####[facility] [address] [place], [address] GAP Normal 5-15 [facility] Comment on above: Result Comment: Canc elled via OM: Order cancelled - Patient discharged Performed By: #### L 500.2500, L100.0100 ####[facility] [address] [place], [address] GLU Normal 70-99 [facility] Comment on above: Result Comment: Canc elled via OM: Order cancelled - Patient discharged Performed By: #### L 500.2500, L100.0100 ####[facility] [address] [place], [address] Potassium Normal 3.3-5.1 [facility] Comment on above: Result Comment: Canc elled via OM: Order cancelled - Patient discharged Performed By: #### L 500.2500, L100.0100 ####[facility] [address] [place], [address] Basic Metabolic Profile (BMP) Normal 133-145 [facility] Comment on above: Result Comment: Canc elled via OM: Order cancelled - Patient discharged Performed By: #### L 500.2500, L100.0100 ####[facility] [address] [place], [address] CBC W/Diff, Automatedon 04-2 Absolute Neut Normal 2.0-7.7 [facility] Comment on above: Result Comment: Canc elled via OM: Order cancelled - Patient discharged Performed By: #### L 500.2500, L100.0100 ####[facility] [address] [place], [address] HCT Normal 37-47 [facility] Comment on above: Result Comment: Canc elled via OM: Order cancelled - Patient discharged Performed By: #### L 500.2500, L100.0100 ####[facility] [address] [place], [address] HGB Normal 12.0-15.0 [facility] Comment on above: Result Comment: Canc elled via OM: Order cancelled - Patient discharged Performed By: #### L 500.2500, L100.0100 ####[facility] [address] [place], [address] MCH Normal 27.0-32.0 [facility] Comment on above: Result Comment: Canc elled via OM: Order cancelled - Patient discharged Performed By: #### L 500.2500, L100.0100 ####[facility] [address] [place], [address] MCHC Normal 32-36 [facility] Comment on above: Result Comment: Canc elled via OM: Order cancelled - Patient discharged Performed By: #### L 500.2500, L100.0100 ####[facility] [address] [place], [address] MCV Normal 81-99 [facility] Comment on above: Result Comment: Canc elled via OM: Order cancelled - Patient discharged Performed By: #### L 500.2500, L100.0100 ####[facility] [address] [place], [address] NEUT% Normal 47-70 [facility] Comment on above: Result Comment: Canc elled via OM: Order cancelled - Patient discharged Performed By: #### L 500.2500, L100.0100 ####[facility] [address] [place], [address] PLT Normal 150-450 [facility] Comment on above: Result Comment: Canc elled via OM: Order cancelled - Patient discharged Performed By: #### L 500.2500, L100.0100 ####[facility] [address] [place], [address] RBC Normal 4.2-5.4 [facility] Comment on above: Result Comment: Canc elled via OM: Order cancelled - Patient discharged Performed By: #### L 500.2500, L100.0100 ####[facility] [address] [place], [address] RDW CV Normal 11.6-14.6 [facility] Comment on above: Result Comment: Canc elled via OM: Order cancelled - Patient discharged Performed By: #### L 500.2500, L100.0100 ####[facility] [address] [place], [address] RDW SD Normal 35.1-43.9 [facility] Comment on above: Result Comment: Canc elled via OM: Order cancelled - Patient discharged Performed By: #### L 500.2500, L100.0100 ####[facility] [address] [place], [address] WBC Normal 4.4-11.0 [facility] Comment on above: Result Comment: Canc elled via OM: Order cancelled - Patient discharged Performed By: #### L 500.2500, L100.0100 ####[facility] [address] [place], [address] Basic Metabolic Profile (BMP )on 10-17-2024 BUN Normal 4-19 [facility] Comment on above: Result Comment: Canc elled via OM: Order cancelled - Patient discharged Performed By: #### L 500.2500, L100.0100 ####[facility] [address] [place], [address] BUN/CRE Normal 10-20 [facility] Comment on above: Result Comment: Canc elled via OM: Order cancelled - Patient discharged Performed By: #### L 500.2500, L100.0100 ####[facility] [address] [place], [address] Calcium Normal 7.6-11.0 [facility] Comment on above: Result Comment: Canc elled via OM: Order cancelled - Patient discharged Performed By: #### L 500.2500, L100.0100 ####[facility] [address] [place], [address] CL Normal 98-108 [facility] Comment on above: Result Comment: Canc elled via OM: Order cancelled - Patient discharged Performed By: #### L 500.2500, L100.0100 ####[facility] [address] [place], [address] CO2 Normal 21.0-32.0 [facility] Comment on above: Result Comment: Canc elled via OM: Order cancelled - Patient discharged Performed By: #### L 500.2500, L100.0100 ####[facility] [address] [place], [address] CREAT,SERUM Normal 0.70-1.20 [facility] Comment on above: Result Comment: Canc elled via OM: Order cancelled - Patient discharged Performed By: #### L 500.2500, L100.0100 ####[facility] [address] [place], [address] eGFR Normal >60 [facility] Comment on above: Result Comment: Canc elled via OM: Order cancelled - Patient discharged Performed By: #### L 500.2500, L100.0100 ####[facility] [address] [place], [address] GAP Normal 5-15 [facility] Comment on above: Result Comment: Canc elled via OM: Order cancelled - Patient discharged Performed By: #### L 500.2500, L100.0100 ####[facility] [address] [place], [address] GLU Normal 70-99 [facility] Comment on above: Result Comment: Canc elled via OM: Order cancelled - Patient discharged Performed By: #### L 500.2500, L100.0100 ####[facility] [address] [facility] [place], [address] Potassium Normal 3.3-5.1 [facility] Comment on above: Result Comment: Canc elled via OM: Order cancelled - Patient discharged Performed By: #### L 500.2500, L100.0100 ####[facility] [address] [place], [address] Basic Metabolic Profile (BMP) Normal 133-145 [facility] Comment on above: Result Comment: Canc elled via OM: Order cancelled - Patient discharged Performed By: #### L 500.2500, L100.0100 ####[facility] [address] [place], [address] CBC W/Diff, Automatedon - Absolute Neut Normal 2.0-7.7 [facility] Comment on above: Result Comment: Canc elled via OM: Order cancelled - Patient discharged Performed By: #### L 500.2500, L100.0100 ####[facility] [address] [place], [address] HCT Normal 37-47 [facility] Comment on above: Result Comment: Canc elled via OM: Order cancelled - Patient discharged Performed By: #### L 500.2500, L100.0100 ####[facility] [address] [place], [address] HGB Normal 12.0-15.0 [facility] Comment on above: Result Comment: Canc elled via OM: Order cancelled - Patient discharged Performed By: #### L 500.2500, L100.0100 ####[facility] [address] [place], [address] MCH Normal 27.0-32.0 [facility] Comment on above: Result Comment: Canc elled via OM: Order cancelled - Patient discharged Performed By: #### L 500.2500, L100.0100 ####[facility] [address] [place], [address] MCHC Normal 32-36 [facility] Comment on above: Result Comment: Canc elled via OM: Order cancelled - Patient discharged Performed By: #### L 500.2500, L100.0100 ####[facility] [address] [place], [address] MCV Normal 81-99 [facility] Comment on above: Result Comment: Canc elled via OM: Order cancelled - Patient discharged Performed By: #### L 500.2500, L100.0100 ####[facility] [address] [place], [address] NEUT% Normal 47-70 [facility] Comment on above: Result Comment: Canc elled via OM: Order cancelled - Patient discharged Performed By: #### L 500.2500, L100.0100 ####[facility] [address] [place], [address] PLT Normal 150-450 [facility] Comment on above: Result Comment: Canc elled via OM: Order cancelled - Patient discharged Performed By: #### L 500.2500, L100.0100 ####[facility] [address] [place], [address] RBC Normal 4.2-5.4 [facility] Comment on above: Result Comment: Canc elled via OM: Order cancelled - Patient discharged Performed By: #### L 500.2500, L100.0100 ####[facility] [address] [place], [address] RDW CV Normal 11.6-14.6 [facility] Comment on above: Result Comment: Canc elled via OM: Order cancelled - Patient discharged Performed By: #### L 500.2500, L100.0100 ####[facility] [address] [place], [address] RDW SD Normal 35.1-43.9 [facility] Comment on above: Result Comment: Canc elled via OM: Order cancelled - Patient discharged Performed By: #### L 500.2500, L100.0100 ####[facility] [address] [place], [address] WBC Normal 4.4-11.0 [facility] Comment on above: Result Comment: Canc elled via OM: Order cancelled - Patient discharged Performed By: #### L 500.2500, L100.0100 ####[facility] [address] [place], [address] Synovial Fluid RBC, WBC AND Diffon 10-14-2024 PATH COM/SYFL Reviewed Normal [facility] Comment on above: Result Comment: SEE REPORT IN PATIENT'S EMR AMENDED REPORT 10/14/24 1405 PATH COM/SYFL previously reported as: May follow Performed By: #### M 100.4001, M100.2900, M100.2000, M300.3000, L200.0400, M600.2000, M300.2000 ####[facility] [address] [place], [address] Basic Metabolic Profile (BMP )on 10-10-2024 BUN Normal 4-19 [facility] Comment on above: Result Comment: Canc elled via OM: Order cancelled - Patient discharged Performed By: #### L 100.0100, L500.2500 ####[facility] [address] [place], [address] BUN/CRE Normal 10-20 [facility] Comment on above: Result Comment: Canc elled via OM: Order cancelled - Patient discharged Performed By: #### L 100.0100, L500.2500 ####[facility] [address] [place], [address] Calcium Normal 7.6-11.0 [facility] Comment on above: Result Comment: Canc elled via OM: Order cancelled - Patient discharged Performed By: #### L 100.0100, L500.2500 ####[facility] [address] [place], [address] CL Normal 98-108 [facility] Comment on above: Result Comment: Canc elled via OM: Order cancelled - Patient discharged Performed By: #### L 100.0100, L500.2500 ####[facility] [address] [place], [address] CO2 Normal 21.0-32.0 [facility] Comment on above: Result Comment: Canc elled via OM: Order cancelled - Patient discharged Performed By: #### L 100.0100, L500.2500 ####[facility] [address] [place], [address] CREAT,SERUM Normal 0.70-1.20 [facility] Comment on above: Result Comment: Canc elled via OM: Order cancelled - Patient discharged Performed By: #### L 100.0100, L500.2500 ####[facility] [address] [place], [address] eGFR Normal >60 [facility] Comment on above: Result Comment: Canc elled via OM: Order cancelled - Patient discharged Performed By: #### L 100.0100, L500.2500 ####[facility] [address] [place], [address] GAP Normal 5-15 [facility] Comment on above: Result Comment: Canc elled via OM: Order cancelled - Patient discharged Performed By: #### L 100.0100, L500.2500 ####[facility] [address] [place], [address] GLU Normal 70-99 [facility] Comment on above: Result Comment: Canc elled via OM: Order cancelled - Patient discharged Performed By: #### L 100.0100, L500.2500 ####[facility] [address] [place], [address] Potassium Normal 3.3-5.1 [facility] Comment on above: Result Comment: Canc elled via OM: Order cancelled - Patient discharged Performed By: #### L 100.0100, L500.2500 ####[facility] [address] [place], [address] Basic Metabolic Profile (BMP) Normal 133-145 [facility] Comment on above: Result Comment: Canc elled via OM: Order cancelled - Patient discharged Performed By: #### L 100.0100, L500.2500 ####[facility] [address] [place], [address] CBC W/Diff, Automatedon 10-01-2024 Absolute Neut Normal 2.0-7.7 [facility] Comment on above: Result Comment: Canc elled via OM: Order cancelled - Patient discharged Performed By: #### L 100.0100, L500.2500 ####[facility] [address] [place], [address] HCT Normal 37-47 [facility] Comment on above: Result Comment: Canc elled via OM: Order cancelled - Patient discharged Performed By: #### L 100.0100, L500.2500 ####[facility] [address] [place], [address] HGB Normal 12.0-15.0 [facility] Comment on above: Result Comment: Canc elled via OM: Order cancelled - Patient discharged Performed By: #### L 100.0100, L500.2500 ####[facility] [address] [place], [address] MCH Normal 27.0-32.0 [facility] Comment on above: Result Comment: Canc elled via OM: Order cancelled - Patient discharged Performed By: #### L 100.0100, L500.2500 ####[facility] [address] [place], [address] MCHC Normal 32-36 [facility] Comment on above: Result Comment: Canc elled via OM: Order cancelled - Patient discharged Performed By: #### L 100.0100, L500.2500 ####[facility] [address] [place], [address] MCV Normal 81-99 [facility] Comment on above: Result Comment: Canc elled via OM: Order cancelled - Patient discharged Performed By: #### L 100.0100, L500.2500 ####[facility] [address] [place], [address] NEUT% Normal 47-70 [facility] Comment on above: Result Comment: Canc elled via OM: Order cancelled - Patient discharged Performed By: #### L 100.0100, L500.2500 ####[facility] [address] [place], [address] PLT Normal 150-450 [facility] Comment on above: Result Comment: Canc elled via OM: Order cancelled - Patient discharged Performed By: #### L 100.0100, L500.2500 ####[facility] [address] [place], [address] RBC Normal 4.2-5.4 [facility] Comment on above: Result Comment: Canc elled via OM: Order cancelled - Patient discharged Performed By: #### L 100.0100, L500.2500 ####[facility] [address] [place], [address] RDW CV Normal 11.6-14.6 [facility] Comment on above: Result Comment: Canc elled via OM: Order cancelled - Patient discharged Performed By: #### L 100.0100, L500.2500 ####[facility] [address] [place], [address] RDW SD Normal 35.1-43.9 [facility] Comment on above: Result Comment: Canc elled via OM: Order cancelled - Patient discharged Performed By: #### L 100.0100, L500.2500 ####[facility] [address] [place], [address] WBC Normal 4.4-11.0 [facility] Comment on above: Result Comment: Canc elled via OM: Order cancelled - Patient discharged Performed By: #### L 100.0100, L500.2500 ####[facility] [address] [place], [address] Vancomycin trough [Mass/Vol] Ordered By: Sixto Andrade on 10-06-2024 Vancomycin Level Trough 13.6 ug/mL 5.0-15.0 [facility] Comment on above: Recommended goal tro [...] therapy recommended for serious lifethreatening infections include:- Vmgdwwkdlb-Numbaiiczkek-Dvflhiovj (Ventilator/Healtcare Associated)-Sepsis PLEASE CONTACT PHARMACY SERVICES (#[id number]) FOR INTERPRETATIONOF RESULTS. Vancomycin, Trough Levelon 0 10-06-2024 VANCO, TROUGH 13.6 ug/mL Normal 5.0-15.0 [facility] Comment on above: Order Comment: Comme nts: DRAW 30 MIN PRIOR TO [id number] Result Comment: Zackery mmended goal trough ranges are generally 10-15 mcg/mlfor less severe/complicated infections such as cellulitisor UTI and 15-20 mcg/ml for more severe/complicatedinfections such as bacteremia/sepsis, osteomyelitis,pneumonia or meningitis. Goal trough ranges should takeinto account indication, patient-specific factors andorganism ESPERANZA.VANCOMYCIN STANDARED DRUG THERAPY TROUGH LEVEL: 5.0 - 15.0 mg/LVANCOMYCIN HIGH INTENSITY THERAPY TROUGH LEVEL: 15.0 - 20.0 mg/LHigh Intensity therapy recommended for serious lifethreatening infections include:- Igihmleswj-Eryjkbmrzlav-Abcogxjio (Ventilator/Healtcare Associated)-SepsisPLEASE CONTACT PHARMACY SERVICES (#5629) FOR INTERPRETATIONOF RESULTS. Performed By: #### L 501.8820 ####[facility] [address] [place], [address] Absolute neutrophil countOrd ered By: Rodrigo Sanches on 10-03-2024 Neutrophils (Bld) [#/Vol] 3.0 10*3/uL 2.0-7.7 [facility] Anion gap in Serum or Plasma Ordered By: Rodrigo Sanches on 10-03-2024 Anion gap [Moles/Vol] 11 mmol/L - [facility] BUN/creatinine ratioOrdered By: Rodrigo Sanches on 10-03-2024 Urea nitrogen/Creatinine [Mass ratio] 24.6 mg/mg High - [facility] Basic Metabolic Profile (BMP )on 10-03-2024 BUN/CRE 24.6 RATIO High - [facility] Comment on above: Performed By: #### L 500.2500, L100.0100 ####[facility] [address] [place], [address] Calcium [Mass/Vol] 9.2 mg/dL Normal 7.6-11.0 [facility] Comment on above: Performed By: #### L 500.2500, L100.0100 ####[facility] [address] [place], [address] Chloride [Moles/Vol] 100 mmol/L Normal 98-108 [facility] Comment on above: Performed By: #### L 500.2500, L100.0100 ####[facility] [address] [place], [address] CO2 [Moles/Vol] 27.3 mmol/L Normal 21.0-32.0 [facility] Comment on above: Performed By: #### L 500.2500, L100.0100 ####[facility] [address] [place], [address] Creatinine [Mass/Vol] 1.09 mg/dL Normal 0.70-1.20 [facility] Comment on above: Performed By: #### L 500.2500, L100.0100 ####[facility] [address] [place], [address] ECRCL 56.04 ml/min Normal 50-250 [facility] Comment on above: Performed By: #### L 500.2500, L100.0100 ####[facility] [address] [place], [address] GAP 11 Normal 5-15 [facility] Comment on above: Performed By: #### L 500.2500, L100.0100 ####[facility] [address] [place], [address] GFR/1.73 sq M.predicted among non-blacks MDRD (S/P/Bld) [Vol rate/Area] 53 mL/min/{1.73_m2} Low >60 [facility] Comment on above: Result Comment: mL/m in/1.73m2 CKD-EPI Creatinine Equation (2020) Performed By: #### L 500.2500, L100.0100 ####[facility] [address] [place], [address] Glucose [Mass/Vol] 96 mg/dL Normal 70-99 [facility] Comment on above: Performed By: #### L 500.2500, L100.0100 ####[facility] [address] [place], [address] Potassium [Moles/Vol] 4.4 mmol/L Normal 3.3-5.1 [facility] Comment on above: Performed By: #### L 500.2500, L100.0100 ####[facility] [address] [place], [address] Sodium [Moles/Vol] 139 mmol/L Normal 133-145 [facility] Comment on above: Performed By: #### L 500.2500, L100.0100 ####[facility] [address] [place], [address] Urea nitrogen [Mass/Vol] 27 mg/dL High 4-19 [facility] Comment on above: Performed By: #### L 500.2500, L100.0100 ####[facility] [address] [place], [address] Basophil percentageOrdered B y: Rodrigo Sanches on 10-03-2024 Basophils/100 WBC (Bld) 0.8 % 0-1 [facility] CBC W/Diff, Automatedon Absolute Lymph 1.20 X10 3/uL Normal 0.83-4.51 [facility] Comment on above: Performed By: #### L 500.2500, L100.0100 ####[facility] [address] [place], [address] Absolute Neut 3.0 X10 3/uL Normal 2.0-7.7 [facility] Comment on above: Performed By: #### L 500.2500, L100.0100 ####[facility] [address] [place], [address] Basophils/100 WBC (Bld) 0.8 % Normal 0-1 [facility] Comment on above: Performed By: #### L 500.2500, L100.0100 ####[facility] [address] [place], [address] Eosinophils/100 WBC (Bld) 5.5 % High 0-5 [facility] Comment on above: Performed By: #### L 500.2500, L100.0100 ####[facility] [address] [place], [address] Erythrocyte distribution width (RBC) [Ratio] 15.0 % High 11.6-14.6 [facility] Comment on above: Performed By: #### L 500.2500, L100.0100 ####[facility] [address] [place], [address] Hematocrit (Bld) [Volume fraction] 37.3 % Normal 37-47 [facility] Comment on above: Performed By: #### L 500.2500, L100.0100 ####[facility] [address] [place], [address] Hemoglobin (Bld) [Mass/Vol] 11.9 g/dL Low 12.0-15.0 [facility] Comment on above: Performed By: #### L 500.2500, L100.0100 ####[facility] [address] [place], [address] IG% 0.600 Normal 0.0-0.9 [facility] Comment on above: Result Comment: IG% - Immature Granulocytes (promyelocytes, myelocytes andmetamyelocytes) > 1% indicates that a LEFT SHIFT is Present. Performed By: #### L 500.2500, L100.0100 ####[facility] [address] [place], [address] Lymphocytes/100 WBC (Bld) 22.7 % Normal 19-41 [facility] Comment on above: Performed By: #### L 500.2500, L100.0100 ####[facility] [address] [place], [address] MCH (RBC) [Entitic mass] 29.2 pg Normal 27.0-32.0 [facility] Comment on above: Performed By: #### L 500.2500, L100.0100 ####[facility] [address] [place], [address] MCHC (RBC) [Mass/Vol] 31.9 g/dL Low 32-36 [facility] Comment on above: Performed By: #### L 500.2500, L100.0100 ####[facility] [address] [place], [address] MCV (RBC) [Entitic vol] 91.6 fL Normal 81-99 [facility] Comment on above: Performed By: #### L 500.2500, L100.0100 ####[facility] [address] [place], [address] Monocytes/100 WBC (Bld) 13.4 % High 0-10 [facility] Comment on above: Performed By: #### L 500.2500, L100.0100 ####[facility] [address] [place], [address] Neutrophils/100 WBC (Bld) 57.0 % Normal 47-70 [facility] Comment on above: Performed By: #### L 500.2500, L100.0100 ####[facility] [address] [place], [address] Nucleated RBC (Bld) [#/Vol] 0 10*3/uL Normal 0-5 [facility] Comment on above: Performed By: #### L 500.2500, L100.0100 ####[facility] [address] [place], [address] Platelet mean volume (Bld) [Entitic vol] 10.3 fL Normal 6.2-12.0 [facility] Comment on above: Performed By: #### L 500.2500, L100.0100 ####[facility] [address] [place], [address] Platelets (Bld) [#/Vol] 247 10*3/uL Normal 150-450 [facility] Comment on above: Performed By: #### L 500.2500, L100.0100 ####[facility] [address] [place], [address] RBC (Bld) [#/Vol] 4.07 10*6/uL Low 4.2-5.4 [facility] Comment on above: Performed By: #### L 500.2500, L100.0100 ####[facility] [address] [place], [address] RDW SD 50.2 fl High 35.1-43.9 [facility] Comment on above: Performed By: #### L 500.2500, L100.0100 ####[facility] [address] [place], [address] WBC (Bld) [#/Vol] 5.3 10*3/uL Normal 4.4-11.0 [facility] Comment on above: Performed By: #### L 500.2500, L100.0100 ####[facility] [address] [place], [address] Carbon dioxide, total [Moles /volume] in Central venous bloodOrdered By: Rodrigo Sanches on 10-03-2024 CO2 [Moles/Vol] 27.3 mmol/L 21.0-32.0 [facility] Chloride assayOrdered By: Neftaly Sanches on 10-03-2024 Chloride [Moles/Vol] 100 mmol/L 98-108 [facility] Eosinophil percentageOrdered By: Rodrigo Sanches 10-03-2024 Eosinophils/100 WBC (Bld) 5.5 % High 0-5 [facility] Erythrocyte distribution wid th (RBC) [Ratio]Ordered By: Rodrigo Sanches on 10-03-2024 Erythrocyte distribution width (RBC) [Entitic vol] 50.2 fL High 35.1-43.9 [facility] Erythrocyte distribution wid th ratioOrdered By: Rodrigo Sanches on 10-03-2024 Erythrocyte distribution width (RBC) [Ratio] 15.0 % High 11.6-14.6 [facility] Estimation of creatinine darrell aranceOrdered By: Rodrigo Sanches on 10-03-2024 Estimated Creatinine Clearance Calc 56.04 ml/min 50-250 [facility] GFR/1.73 sq M.predicted hans g non-blacks MDRD (S/P/Bld) [Vol rate/Area]Ordered By: Rodrigo Sanches on 10-03-2024 Estimated GFR (MDRD) Non-Af Amer 53 Low >60 [facility] Comment on above: mL/min/1.73m2 CKD-EP I Creatinine Equation (2020) Hematocrit Auto (Bld) [Volum e fraction]Ordered By: Rodrigo Sanches on 10-03-2024 Hematocrit (Bld) [Volume fraction] 37.3 % 37-47 [facility] Hemoglobin measurementOrdere d By: Rodrigo Sanches on 10-03-2024 Hemoglobin (Bld) [Mass/Vol] 11.9 g/dL Low 12.0-15.0 [facility] Immature granulocytes/100 WB C Auto (Bld)Ordered By: Rodrigo Sanches on 10-03-2024 Immature granulocytes/100 WBC (Bld) 0.600 % 0.0-0.9 [facility] Comment on above: IG% - Immature Granu locytes (promyelocytes, myelocytes and metamyelocytes) > 1% indicates that a LEFT SHIFT is Present. Lymphocytes Auto (Unsp spec) [#/Vol]Ordered By: Rodrigo Sanches on 10-03-2024 Lymphocytes (Bld) [#/Vol] 1.20 10*3/uL 0.83-4.51 [facility] Lymphocytes/100 WBC Auto (Un sp spec)Ordered By: Rodrigo Sanches 10-03-2024 Lymphocytes/100 WBC (Bld) 22.7 % 19-41 [facility] MCV (mean corpuscular volume ) determinationOrdered By: Rodrigo Sanches on 10-03-2024 MCV (RBC) [Entitic vol] 91.6 fL 81-99 [facility] Mean corpuscular hemoglobin (MCH) determinationOrdered By: Rodrigo Sanches 10-03-2024 MCH (RBC) [Entitic mass] 29.2 pg 27.0-32.0 [facility] Mean corpuscular hemoglobin concentration (MCHC) determinationOrdered By: Rodrigo Sanches 10-03-2024 MCHC (RBC) [Mass/Vol] 31.9 g/dL Low 32-36 [facility] Mean platelet volume determi nationOrdered By: Rodrigo Sanches on 10-03-2024 Platelet mean volume (Bld) [Entitic vol] 10.3 fL 6.2-12.0 [facility] Monocyte percentageOrdered B y: Rodrigo Sanches on 10-03-2024 Monocytes/100 WBC (Bld) 13.4 % High 0-10 [facility] Neutrophil percentageOrdered By: Rodrigo Sanches on 10-03-2024 Neutrophils/100 WBC (Bld) 57.0 % 47-70 [facility] Nucleated red blood cell per centageOrdered By: Rodrigo Sanches on 10-03-2024 Nucleated RBC/100 WBC (Bld) [Ratio] 0 % 0-5 [facility] Platelet countOrdered By: Neftaly Sanches on 10-03-2024 Platelets (Bld) [#/Vol] 247 10*3/uL 150-450 [facility] Potassium (Unsp spec) [Mass/ Vol]Ordered By: Rodrigo Sanches on 10-03-2024 Potassium [Moles/Vol] 4.4 mmol/L 3.3-5.1 [facility] RBC Auto (Bld) [#/Vol]Ordere d By: Rodrigo Sanches on 10-03-2024 RBC (Bld) [#/Vol] 4.07 10*6/uL Low 4.2-5.4 [facility] Serum creatinine measurement (mass/volume)Ordered By: Rodrigo Sanches on 10-03-2024 Creatinine [Mass/Vol] 1.09 mg/dL 0.70-1.20 [facility] Serum glucose measurement (m ass/volume)Ordered By: Rodrigo Sanches on 10-03-2024 Glucose [Mass/Vol] 96 mg/dL 70-99 [facility] Serum or plasma calcium lisa urement (mass/volume)Ordered By: Rodrigo Sanches on 10-03-2024 Calcium [Mass/Vol] 9.2 mg/dL 7.6-11.0 [facility] Serum or plasma urea nitroge n measurement (mass/volume)Ordered By: Rodrigo Sanches on 10-03-2024 Urea nitrogen [Mass/Vol] 27 mg/dL High 4-19 [facility] Sodium levelOrdered By: Rodrigo Sanches on 10-03-2024 Sodium [Moles/Vol] 139 mmol/L 133-145 [facility] White blood cell (WBC) count Ordered By: Rodrigo Sanches on 10-03-2024 WBC (Bld) [#/Vol] 5.3 10*3/uL 4.4-11.0 [facility] Vancomycin, Trough Levelon 0 10-01-2024 VANCO, TROUGH 13.2 ug/mL Normal 5.0-15.0 [facility] Comment on above: Order Comment: Comme nts: Trough to be drawn 30 mins prior to scheduled [id number] Result Comment: Zackery mmended goal trough ranges are generally 10-15 mcg/mlfor less severe/complicated infections such as cellulitisor UTI and 15-20 mcg/ml for more severe/complicatedinfections such as bacteremia/sepsis, osteomyelitis,pneumonia or meningitis. Goal trough ranges should takeinto account indication, patient-specific factors andorganism ESPERANZA.VANCOMYCIN STANDARED DRUG THERAPY TROUGH LEVEL: 5.0 - 15.0 mg/LVANCOMYCIN HIGH INTENSITY THERAPY TROUGH LEVEL: 15.0 - 20.0 mg/LHigh Intensity therapy recommended for serious lifethreatening infections include:- Zskcmdajck-Gnusljtlxojq-Ydlxnysec (Ventilator/Healtcare Associated)-SepsisPLEASE CONTACT PHARMACY SERVICES (#4817) FOR INTERPRETATIONOF RESULTS. Performed By: #### L 501.8820 ####[facility] [address] [place], [address] Vancomycin, Trough Levelon 0 09-29-2024 VANCO, TROUGH 15.6 ug/mL High 5.0-15.0 [facility] Comment on above: Order Comment: Comme nts: DRAW 30 MIN PRIOR TO [id number] Result Comment: Zackery mmended goal trough ranges are generally 10-15 mcg/mlfor less severe/complicated infections such as cellulitisor UTI and 15-20 mcg/ml for more severe/complicatedinfections such as bacteremia/sepsis, osteomyelitis,pneumonia or meningitis. Goal trough ranges should takeinto account indication, patient-specific factors andorganism ESPERANZA.VANCOMYCIN STANDARED DRUG THERAPY TROUGH LEVEL: 5.0 - 15.0 mg/LVANCOMYCIN HIGH INTENSITY THERAPY TROUGH LEVEL: 15.0 - 20.0 mg/LHigh Intensity therapy recommended for serious lifethreatening infections include:- Yievjyfjgq-Zdbggbuuhvgb-Dlojoslii (Ventilator/Healtcare Associated)-SepsisPLEASE CONTACT PHARMACY SERVICES (#8139) FOR INTERPRETATIONOF RESULTS. Performed By: #### L 501.8820 ####[facility] [address] [place], [address] Basic Metabolic Profile (BMP )on 09-26-2024 BUN/CRE 25.8 RATIO High 10-20 [facility] Comment on above: Performed By: #### L 100.0100, L500.2500 ####[facility] [address] [place], [address] Calcium [Mass/Vol] 9.5 mg/dL Normal 7.6-11.0 [facility] Comment on above: Performed By: #### L 100.0100, L500.2500 ####[facility] [address] [place], [address] Chloride [Moles/Vol] 100 mmol/L Normal 98-108 [facility] Comment on above: Performed By: #### L 100.0100, L500.2500 ####[facility] [address] [place], [address] CO2 [Moles/Vol] 27.3 mmol/L Normal 21.0-32.0 [facility] Comment on above: Performed By: #### L 100.0100, L500.2500 ####[facility] [address] [place], [address] Creatinine [Mass/Vol] 1.13 mg/dL Normal 0.70-1.20 [facility] Comment on above: Performed By: #### L 100.0100, L500.2500 ####[facility] [address] [place], [address] ECRCL 54.32 ml/min Normal 50-250 [facility] Comment on above: Performed By: #### L 100.0100, L500.2500 ####[facility] [address] [place], [address] GAP 12 Normal 5-15 [facility] Comment on above: Performed By: #### L 100.0100, L500.2500 ####[facility] [address] [place], [address] GFR/1.73 sq M.predicted among non-blacks MDRD (S/P/Bld) [Vol rate/Area] 51 mL/min/{1.73_m2} Low >60 [facility] Comment on above: Result Comment: mL/m in/1.73m2 CKD-EPI Creatinine Equation (2020) Performed By: #### L 100.0100, L500.2500 ####[facility] [address] [place], [address] Glucose [Mass/Vol] 100 mg/dL High 70-99 [facility] Comment on above: Performed By: #### L 100.0100, L500.2500 ####[facility] [address] [place], [address] Potassium [Moles/Vol] 5.0 mmol/L Normal 3.3-5.1 [facility] Comment on above: Performed By: #### L 100.0100, L500.2500 ####[facility] [address] [place], [address] Sodium [Moles/Vol] 139 mmol/L Normal 133-145 [facility] Comment on above: Performed By: #### L 100.0100, L500.2500 ####[facility] [address] [place], [address] Urea nitrogen [Mass/Vol] 29 mg/dL High 4-19 [facility] Comment on above: Performed By: #### L 100.0100, L500.2500 ####[facility] [address] [place], [address] CBC W/Diff, Automatedon 03- Absolute Lymph 1.52 X10 3/uL Normal 0.83-4.51 [facility] Comment on above: Performed By: #### L 100.0100, L500.2500 ####[facility] [address] [place], [address] Absolute Neut 5.2 X10 3/uL Normal 2.0-7.7 [facility] Comment on above: Performed By: #### L 100.0100, L500.2500 ####[facility] [address] [place], [address] Basophils/100 WBC (Bld) 1.0 % Normal 0-1 [facility] Comment on above: Performed By: #### L 100.0100, L500.2500 ####[facility] [address] [place], [address] Eosinophils/100 WBC (Bld) 3.9 % Normal 0-5 [facility] Comment on above: Performed By: #### L 100.0100, L500.2500 ####[facility] [address] [place], [address] Erythrocyte distribution width (RBC) [Ratio] 14.6 % Normal 11.6-14.6 [facility] Comment on above: Performed By: #### L 100.0100, L500.2500 ####[facility] [address] [place], [address] Hematocrit (Bld) [Volume fraction] 37.0 % Normal 37-47 [facility] Comment on above: Performed By: #### L 100.0100, L500.2500 ####[facility] [address] [place], [address] Hemoglobin (Bld) [Mass/Vol] 12.1 g/dL Normal 12.0-15.0 [facility] Comment on above: Performed By: #### L 100.0100, L500.2500 ####[facility] [address] [place], [address] IG% 0.800 Normal 0.0-0.9 [facility] Comment on above: Result Comment: IG% - Immature Granulocytes (promyelocytes, myelocytes andmetamyelocytes) > 1% indicates that a LEFT SHIFT is Present. Performed By: #### L 100.0100, L500.2500 ####[facility] [address] [place], [address] Lymphocytes/100 WBC (Bld) 19.3 % Normal 19-41 [facility] Comment on above: Performed By: #### L 100.0100, L500.2500 ####[facility] [address] [place], [address] MCH (RBC) [Entitic mass] 29.7 pg Normal 27.0-32.0 [facility] Comment on above: Performed By: #### L 100.0100, L500.2500 ####[facility] [address] [place], [address] MCHC (RBC) [Mass/Vol] 32.7 g/dL Normal 32-36 [facility] Comment on above: Performed By: #### L 100.0100, L500.2500 ####[facility] [address] [place], [address] MCV (RBC) [Entitic vol] 90.9 fL Normal 81-99 [facility] Comment on above: Performed By: #### L 100.0100, L500.2500 ####[facility] [address] [place], [address] Monocytes/100 WBC (Bld) 8.5 % Normal 0-10 [facility] Comment on above: Performed By: #### L 100.0100, L500.2500 ####[facility] [address] [place], [address] Neutrophils/100 WBC (Bld) 66.5 % Normal 47-70 [facility] Comment on above: Performed By: #### L 100.0100, L500.2500 ####[facility] [address] [place], [address] Nucleated RBC (Bld) [#/Vol] 0 10*3/uL Normal 0-5 [facility] Comment on above: Performed By: #### L 100.0100, L500.2500 ####[facility] [address] [place], [address] Platelet mean volume (Bld) [Entitic vol] 10.2 fL Normal 6.2-12.0 [facility] Comment on above: Performed By: #### L 100.0100, L500.2500 ####[facility] [address] [place], [address] Platelets (Bld) [#/Vol] 390 10*3/uL Normal 150-450 [facility] Comment on above: Performed By: #### L 100.0100, L500.2500 ####[facility] [address] [place], [address] RBC (Bld) [#/Vol] 4.07 10*6/uL Low 4.2-5.4 [facility] Comment on above: Performed By: #### L 100.0100, L500.2500 ####[facility] [address] [place], [address] RDW SD 47.8 fl High 35.1-43.9 [facility] Comment on above: Performed By: #### L 100.0100, L500.2500 ####[facility] [address] [place], [address] WBC (Bld) [#/Vol] 7.9 10*3/uL Normal 4.4-11.0 [facility] Comment on above: Performed By: #### L 100.0100, L500.2500 ####[facility] [address] [place], [place], [address] Vancomycin, Trough Levelon 0 09-24-2024 VANCO, TROUGH 13.3 ug/mL Normal 5.0-15.0 [facility] Comment on above: Order Comment: Comme nts: Trough to be drawn 30 mins prior to scheduled [id number] Result Comment: Zackery mmended goal trough ranges are generally 10-15 mcg/mlfor less severe/complicated infections such as cellulitisor UTI and 15-20 mcg/ml for more severe/complicatedinfections such as bacteremia/sepsis, osteomyelitis,pneumonia or meningitis. Goal trough ranges should takeinto account indication, patient-specific factors andorganism ESPERANZA.VANCOMYCIN STANDARED DRUG THERAPY TROUGH LEVEL: 5.0 - 15.0 mg/LVANCOMYCIN HIGH INTENSITY THERAPY TROUGH LEVEL: 15.0 - 20.0 mg/LHigh Intensity therapy recommended for serious lifethreatening infections include:- Bertjmwckz-Zklgliybdyey-Qkhbksstz (Ventilator/Healtcare Associated)-SepsisPLEASE CONTACT PHARMACY SERVICES (#5856) FOR INTERPRETATIONOF RESULTS. Performed By: #### L 501.8820 ####[facility] [address] [facility] [place], [place], [address] Vancomycin, Trough Levelon 0 09-22-2024 VANCO, TROUGH 12.4 ug/mL Normal 5.0-15.0 [facility] Comment on above: Order Comment: 0900 Result Comment: Zackery mmended goal trough ranges are generally 10-15 mcg/mlfor less severe/complicated infections such as cellulitisor UTI and 15-20 mcg/ml for more severe/complicatedinfections such as bacteremia/sepsis, osteomyelitis,pneumonia or meningitis. Goal trough ranges should takeinto account indication, patient-specific factors andorganism ESPERANZA.VANCOMYCIN STANDARED DRUG THERAPY TROUGH LEVEL: 5.0 - 15.0 mg/LVANCOMYCIN HIGH INTENSITY THERAPY TROUGH LEVEL: 15.0 - 20.0 mg/LHigh Intensity therapy recommended for serious lifethreatening infections include:- Dsuaukblzh-Namrjvqrmhdt-Spvcfrmhj (Ventilator/Healtcare Associated)-SepsisPLEASE CONTACT PHARMACY SERVICES (#4365) FOR INTERPRETATIONOF RESULTS. Performed By: #### L 501.8820 ####[facility] [address] [place], [address] Bilirubin, totalOrdered By: Rodrigo Sanches on 09-21-2024 Bilirubin [Mass/Vol] 0.22 mg/dL 0.00-1.30 [facility] Comprehensive Metabolic Prof ilon 09-21-2024 Albumin [Mass/Vol] 3.2 g/dL Low 3.4-4.8 [facility] Comment on above: Performed By: #### L 500.4050 ####[facility] [address] [place], [address] Albumin/Globulin [Mass ratio] 0.9 {ratio} Normal 0.9-2.4 [facility] Comment on above: Performed By: #### L 500.4050 ####[facility] [address] [place], [address] ALK PHOS 120 U/L High 35-104 [facility] Comment on above: Performed By: #### L 500.4050 ####[facility] [address] [place], [address] ALT [Catalytic activity/Vol] 15 U/L Normal <=34 [facility] Comment on above: Performed By: #### L 500.4050 ####[facility] [address] [place], [address] AST [Catalytic activity/Vol] 23 U/L Normal <=31 [facility] Comment on above: Performed By: #### L 500.4050 ####[facility] [address] [place], [address] Bilirubin [Mass/Vol] 0.22 mg/dL Normal 0.00-1.30 [facility] Comment on above: Performed By: #### L 500.4050 ####[facility] [address] [place], [address] BUN/CRE 21.1 RATIO High 10-20 [facility] Comment on above: Performed By: #### L 500.4050 ####[facility] [address] [place], [address] Calcium [Mass/Vol] 9.2 mg/dL Normal 7.6-11.0 [facility] Comment on above: Performed By: #### L 500.4050 ####[facility] [address] [place], [address] Chloride [Moles/Vol] 99 mmol/L Normal 98-108 [facility] Comment on above: Performed By: #### L 500.4050 ####[facility] [address] [place], [address] CO2 [Moles/Vol] 27.1 mmol/L Normal 21.0-32.0 [facility] Comment on above: Performed By: #### L 500.4050 ####[facility] [address] [place], [address] ECRCL 51.50 ml/min Normal 50-250 [facility] Comment on above: Performed By: #### L 500.4050 ####[facility] [address] [place], [address] GAP 12 Normal 5-15 [facility] Comment on above: Performed By: #### L 500.4050 ####[facility] [address] [place], [address] GFR/1.73 sq M.predicted among non-blacks MDRD (S/P/Bld) [Vol rate/Area] 48 mL/min/{1.73_m2} Low >60 [facility] Comment on above: Result Comment: mL/m in/1.73m2 CKD-EPI Creatinine Equation (2020) Performed By: #### L 500.4050 ####[facility] [address] [place], [address] Globulin (S) [Mass/Vol] 3.5 g/dL Normal 2.2-4.2 [facility] Comment on above: Performed By: #### L 500.4050 ####[facility] [address] [place], [address] Potassium [Moles/Vol] 4.6 mmol/L Normal 3.3-5.1 [facility] Comment on above: Performed By: #### L 500.4050 ####[facility] [address] [place], [address] Sodium [Moles/Vol] 138 mmol/L Normal 133-145 [facility] Comment on above: Performed By: #### L 500.4050 ####[facility] [address] [place], [address] T PROT 6.7 g/dL Normal 5.9-8.4 [facility] Comment on above: Performed By: #### L 500.4050 ####[facility] [address] [place], [address] Creatinine [Mass/Vol] 1.19 mg/dL Normal 0.70-1.20 [facility] Comment on above: Performed By: #### L 500.4050 ####[facility] [address] [place], [address] Glucose [Mass/Vol] 99 mg/dL Normal 70-99 [facility] Comment on above: Performed By: #### L 500.4050 ####[facility] [address] [place], [address] Urea nitrogen [Mass/Vol] 25 mg/dL High 4-19 [facility] Comment on above: Performed By: #### L 500.4050 ####[facility] [address] [place], [address] Laboratory - Chemistry and C hemistry - challengeOrdered By: Rodrigo Sanches on 09-21-2024 AST [Catalytic activity/Vol] 23 U/L <32 [facility] Serum globulin measurementOr dered By: Rodrigo Sanches on 09-21-2024 Globulin (S) [Mass/Vol] 3.5 g/dL 2.2-4.2 [facility] Serum or plasma alanine gao otransferase (ALT) measurementOrdered By: Rodrigo Sanches on 09-21-2024 ALT [Catalytic activity/Vol] 15 U/L <35 [facility] Serum or plasma albumin lisa urement (mass/volume)Ordered By: Rodrigo Sanches 09-21-2024 Albumin [Mass/Vol] 3.2 g/dL Low 3.4-4.8 [facility] Serum or plasma albumin/glob ulin mass ratioOrdered By: Rodrigo Sanches 09-21-2024 Albumin/Globulin [Mass ratio] 0.9 {ratio} 0.9-2.4 [facility] Serum or plasma alkaline bee sphatase measurementOrdered By: Rodrigo Sanches 09-21-2024 ALP [Catalytic activity/Vol] 120 U/L High 35-104 [facility] Total proteinOrdered By: Rodrigo Sanches 09-21-2024 Protein [Mass/Vol] 6.7 g/dL 5.9-8.4 [facility] Vancomycin, Trough Levelon 0 09-20-2024 VANCO, TROUGH 9.9 ug/mL Normal 5.0-15.0 [facility] Comment on above: Order Comment: 0800 Result Comment: VANC OMYCIN STANDARED DRUG THERAPY TROUGH LEVEL: 5.0 - 15.0 mg/LVANCOMYCIN HIGH INTENSITY THERAPY TROUGH LEVEL: 15.0 - 20.0 mg/LHigh Intensity therapy recommended for serious lifethreatening infections include:- Ietqwbntro-Cytfjyywxisx-Papldnszt (Ventilator/Healtcare Associated)-SepsisPLEASE CONTACT PHARMACY SERVICES (#0082) FOR INTERPRETATIONOF RESULTS. AMENDED REPORT 09/20/24 3744 VANCO, TROUGH previously reported as: 10.3 ug/mLRecommended goal trough ranges are generally 10-15 mcg/mlfor less severe/complicated infections such as cellulitisor UTI and 15-20 mcg/ml for more severe/complicatedinfections such as bacteremia/sepsis, osteomyelitis,pneumonia or meningitis. Goal trough ranges should takeinto account indication, patient-specific factors andorganism ESPERANZA.VANCOMYCIN STANDARED DRUG THERAPY TROUGH LEVEL: 5.0 - 15.0 mg/LVANCOMYCIN HIGH INTENSITY THERAPY TROUGH LEVEL: 15.0 - 20.0 mg/LHigh Intensity therapy recommended for serious lifethreatening infections include:- Axybqjixyn-Yqijclojabyy-Hkaasiemy (Ventilator/Healtcare Associated)-SepsisPLEASE CONTACT PHARMACY SERVICES (#8336) FOR INTERPRETATIONOF RESULTS.Recommended goal trough ranges are generally 10-15 mcg/mlfor less severe/complicated infections such as cellulitisor UTI and 15-20 mcg/ml for more severe/complicatedinfections such as bacteremia/sepsis, osteomyelitis,pneumonia or meningitis. Goal trough ranges should takeinto account indication, patient-specific factors andorganism ESPERANZA.VANCOMYCIN STANDARED DRUG THERAPY TROUGH LEVEL: 5.0 - 15.0 mg/LVANCOMYCIN HIGH INTENSITY THERAPY TROUGH LEVEL: 15.0 - 20.0 mg/LHigh Intensity therapy recommended for serious lifethreatening infections include:- Xzynscfjbs-Hgttkgjqcdwg-Dtkrzqktm (Ventilator/Healtcare Associated)-SepsisPLEASE CONTACT PHARMACY SERVICES (#8380) FOR INTERPRETATIONOF RESULTS. Performed By: #### L 501.8820 ####[facility] [address] [facility] [place], [address] Basic Metabolic Profile (BMP )on 09-19-2024 BUN/CRE 18.6 RATIO Normal - [facility] Comment on above: Performed By: #### L 100.0100, L500.2500 ####[facility] [address] [place], [address] Calcium [Mass/Vol] 9.7 mg/dL Normal 7.6-11.0 [facility] Comment on above: Performed By: #### L 100.0100, L500.2500 ####[facility] [address] [place], [address] Chloride [Moles/Vol] 97 mmol/L Low 98-108 [facility] Comment on above: Performed By: #### L 100.0100, L500.2500 ####[facility] [address] [place], [address] CO2 [Moles/Vol] 30.4 mmol/L Normal 21.0-32.0 [facility] Comment on above: Performed By: #### L 100.0100, L500.2500 ####[facility] [address] [place], [address] Creatinine [Mass/Vol] 1.07 mg/dL Normal 0.70-1.20 [facility] Comment on above: Performed By: #### L 100.0100, L500.2500 ####[facility] [address] [place], [address] ECRCL 57.28 ml/min Normal 50-250 [facility] Comment on above: Performed By: #### L 100.0100, L500.2500 ####[facility] [address] [place], [address] GAP 14 Normal 5-15 [facility] Comment on above: Performed By: #### L 100.0100, L500.2500 ####[facility] [address] [place], [address] GFR/1.73 sq M.predicted among non-blacks MDRD (S/P/Bld) [Vol rate/Area] 54 mL/min/{1.73_m2} Low >60 [facility] Comment on above: Result Comment: mL/m in/1.73m2 CKD-EPI Creatinine Equation (2020) Performed By: #### L 100.0100, L500.2500 ####[facility] [address] [place], [address] Glucose [Mass/Vol] 101 mg/dL High 70-99 [facility] Comment on above: Performed By: #### L 100.0100, L500.2500 ####[facility] [address] [place], [address] Potassium [Moles/Vol] 4.6 mmol/L Normal 3.3-5.1 [facility] Comment on above: Performed By: #### L 100.0100, L500.2500 ####[facility] [address] [place], [address] Sodium [Moles/Vol] 142 mmol/L Normal 133-145 [facility] Comment on above: Performed By: #### L 100.0100, L500.2500 ####[facility] [address] [place], [address] Urea nitrogen [Mass/Vol] 20 mg/dL High 4-19 [facility] Comment on above: Performed By: #### L 100.0100, L500.2500 ####[facility] [address] [place], [address] CBC W/Diff, Automatedon 03- 0-2024 Absolute Lymph 1.49 X10 3/uL Normal 0.83-4.51 [facility] Comment on above: Performed By: #### L 100.0100, L500.2500 ####[facility] [address] [place], [address] Absolute Neut 7.6 X10 3/uL Normal 2.0-7.7 [facility] Comment on above: Performed By: #### L 100.0100, L500.2500 ####[facility] [address] [place], [address] Basophils/100 WBC (Bld) 0.8 % Normal 0-1 [facility] Comment on above: Performed By: #### L 100.0100, L500.2500 ####[facility] [address] [place], [address] Eosinophils/100 WBC (Bld) 2.9 % Normal 0-5 [facility] Comment on above: Performed By: #### L 100.0100, L500.2500 ####[facility] [address] [place], [address] Erythrocyte distribution width (RBC) [Ratio] 14.1 % Normal 11.6-14.6 [facility] Comment on above: Performed By: #### L 100.0100, L500.2500 ####[facility] [address] [place], [address] Hematocrit (Bld) [Volume fraction] 38.9 % Normal 37-47 [facility] Comment on above: Performed By: #### L 100.0100, L500.2500 ####[facility] [address] [place], [address] Hemoglobin (Bld) [Mass/Vol] 12.3 g/dL Normal 12.0-15.0 [facility] Comment on above: Performed By: #### L 100.0100, L500.2500 ####[facility] [address] [place], [address] IG% 1.200 High 0.0-0.9 [facility] Comment on above: Result Comment: IG% - Immature Granulocytes (promyelocytes, myelocytes andmetamyelocytes) > 1% indicates that a LEFT SHIFT is Present. Performed By: #### L 100.0100, L500.2500 ####[facility] [address] [place], [address] Lymphocytes/100 WBC (Bld) 14.6 % Low 19-41 [facility] Comment on above: Performed By: #### L 100.0100, L500.2500 ####[facility] [address] [place], [address] MCH (RBC) [Entitic mass] 29.4 pg Normal 27.0-32.0 [facility] Comment on above: Performed By: #### L 100.0100, L500.2500 ####[facility] [address] [place], [address] MCHC (RBC) [Mass/Vol] 31.6 g/dL Low 32-36 [facility] Comment on above: Performed By: #### L 100.0100, L500.2500 ####[facility] [address] [place], [address] MCV (RBC) [Entitic vol] 93.1 fL Normal 81-99 [facility] Comment on above: Performed By: #### L 100.0100, L500.2500 ####[facility] [address] [place], [address] Monocytes/100 WBC (Bld) 6.3 % Normal 0-10 [facility] Comment on above: Performed By: #### L 100.0100, L500.2500 ####[facility] [address] [place], [address] Neutrophils/100 WBC (Bld) 74.2 % High 47-70 [facility] Comment on above: Performed By: #### L 100.0100, L500.2500 ####[facility] [address] [place], [address] Nucleated RBC (Bld) [#/Vol] 0 10*3/uL Normal 0-5 [facility] Comment on above: Performed By: #### L 100.0100, L500.2500 ####[facility] [address] [place], [address] Platelet mean volume (Bld) [Entitic vol] 9.5 fL Normal 6.2-12.0 [facility] Comment on above: Performed By: #### L 100.0100, L500.2500 ####[facility] [address] [place], [address] Platelets (Bld) [#/Vol] 349 10*3/uL Normal 150-450 [facility] Comment on above: Performed By: #### L 100.0100, L500.2500 ####[facility] [address] [place], [address] RBC (Bld) [#/Vol] 4.18 10*6/uL Low 4.2-5.4 [facility] Comment on above: Performed By: #### L 100.0100, L500.2500 ####[facility] [address] [place], [address] RDW SD 48.7 fl High 35.1-43.9 [facility] Comment on above: Performed By: #### L 100.0100, L500.2500 ####[facility] [address] [place], [address] WBC (Bld) [#/Vol] 10.2 10*3/uL Normal 4.4-11.0 [facility] Comment on above: Performed By: #### L 100.0100, L500.2500 ####[facility] [address] [place], [address] Culture, Blood (WB)on 2024 CUB No growth in 5 days. Normal [facility] Comment on above: Performed By: #### M 200.1000 ####[facility] [address] [place], [address] Vancomycin trough [Mass/Vol] Ordered By: Fahad Cavanaugh on 09-18-2024 Vancomycin Level Trough 10.7 ug/mL 5.0-15.0 [facility] Comment on above: Recommended goal tro ugh ranges are generally 10-15 mcg/ml for less severe/complicated infections such as cellulitis or UTI and 15-20 mcg/ml for more severe/complicated infections such as bacteremia/sepsis, osteomyelitis, pneumonia or meningitis. Goal trough ranges should take into account indication, patient-specific factors and organism ESPERAZNA.VANCOMYCIN STANDARED DRUG THERAPY TROUGH LEVEL: 5.0 - 15.0 mg/L VANCOMYCIN HIGH INTENSITY THERAPY TROUGH LEVEL: 15.0 - 20.0 mg/L High Intensity therapy recommended for serious lifethreatening infections include:- Pusenutwjf-Qaofvtwvxzjk-Ustravmkd (Ventilator/Healtcare Associated)-Sepsis PLEASE CONTACT PHARMACY SERVICES (#1461) FOR INTERPRETATIONOF RESULTS. Vancomycin, Trough Levelon 0 09-18-2024 VANCO, TROUGH 10.7 ug/mL Normal 5.0-15.0 [facility] Comment on above: Order Comment: Comme nts: DRAW 30 MIN PRIOR TO [id number] Result Comment: Zackery mmended goal trough ranges are generally 10-15 mcg/mlfor less severe/complicated infections such as cellulitisor UTI and 15-20 mcg/ml for more severe/complicatedinfections such as bacteremia/sepsis, osteomyelitis,pneumonia or meningitis. Goal trough ranges should takeinto account indication, patient-specific factors andorganism ESPERANZA.VANCOMYCIN STANDARED DRUG THERAPY TROUGH LEVEL: 5.0 - 15.0 mg/LVANCOMYCIN HIGH INTENSITY THERAPY TROUGH LEVEL: 15.0 - 20.0 mg/LHigh Intensity therapy recommended for serious lifethreatening infections include:- Wcjcxcmljk-Xhrgvqefobfk-Rvqwxeasc (Ventilator/Healtcare Associated)-SepsisPLEASE CONTACT PHARMACY SERVICES (#9807) FOR INTERPRETATIONOF RESULTS. Performed By: #### L 400.8808 ####[facility] [address] [place], [place], [id number] C. difficile DNA RANJIT+probe Q l (Unsp spec)Ordered By: Claire Mayorga on 09-17-2024 Clostridioides difficile (PCR) [facility] CDIFF (PCR)on 09-17-2024 CDIFF Normal [facility] Comment on above: Performed By: #### M 100.6796 ####[facility] [address] [place], [address] Culture, Anaerobic Any Sourc akosua 09-17-2024 CUAN UNK UNK Left Posterior Synovium - collected in [place] No anaerobic bacteria isolated. [facility] Comment on above: Performed By: #### M 100.2000, M600.2200, M300.2000, M100.3000, M300.3000, M600.2000, M100.4001 ####[facility] [address] [place], [address] CUAN UNK UNK Left Humeral Membrane - collected in [place] No anaerobic bacteria isolated. Normal [facility] Comment on above: Performed By: #### M 100.4001, M600.2000, M300.2000, M300.3000, M100.2000, M100.3000, M600.2200 ####[facility] [address] [place], [address] CUAN UNK UNK Left Glenosphere Membrane - collected in [place] No anaerobic bacteria isolated. Normal [facility] Comment on above: Performed By: #### M 100.3000, M300.2000, M600.2200, M300.3000, M100.2000, M600.2000, M100.4001 ####[facility] [address] [place], [address] CUAN Results called on 09/12/24-1023 by FOREST to [phone]. UNK UNK No anaerobic bacteria isolated. Normal [facility] Comment on above: Performed By: #### M 100.4001, M100.2900, M100.2000, M300.3000, L200.0400, M600.2000, M300.2000 ####[facility] [address] [place], [address] 12 Lead EKGon 09-16-2024 12 Lead EKG Normal [facility] Absolute neutrophil countOrd ered By: Emili Lee on 09-16-2024 Neutrophils (Bld) [#/Vol] 7.1 10*3/uL 2.0-7.7 [facility] Anion gap in Serum or Plasma Ordered By: Emili Lee on 09-16-2024 Anion gap [Moles/Vol] 7 mmol/L 5-15 [facility] Automated blood erythrocyte countOrdered By: Emili Lee on 09-16-2024 RBC (Bld) [#/Vol] 3.69 10*6/uL Low 4.2-5.4 [facility] Comment on above: Performed By: #### L 100.0100, L500.2500 ####[facility] [address] [place], [address] Automated blood hematocrit ( percentage)Ordered By: Emili Lee on 09-16-2024 Hematocrit (Bld) [Volume fraction] 35.3 % Low 37-47 [facility] Comment on above: Performed By: #### L 100.0100, L500.2500 ####[facility] [address] [place], [address] Automated lymphocyte count a s percentage of total leukocytesOrdered By: Emili Lee on 09-16-2024 Lymphocytes/100 WBC (Bld) 11.6 % Low 19-41 [facility] Comment on above: Performed By: #### L 100.0100, L500.2500 ####[facility] [address] [place], [address] BUN/creatinine ratioOrdered By: Emili Lee on 09-16-2024 Urea nitrogen/Creatinine [Mass ratio] 25.4 mg/mg High [facility]20 [facility] Basic Metabolic Profile (BMP )on 09-16-2024 BUN/CRE 25.4 RATIO High [facility]20 [facility] Comment on above: Performed By: #### L 100.0100, L500.2500 ####[facility] [address] [place], [address] ECRCL 65.28 ml/min Normal 50-250 [facility] Comment on above: Performed By: #### L 100.0100, L500.2500 ####[facility] [address] [place], [address] GAP 7 Normal 5-15 [facility] Comment on above: Performed By: #### L 100.0100, L500.2500 ####[facility] [address] [place], [address] GFR/1.73 sq M.predicted among non-blacks MDRD (S/P/Bld) [Vol rate/Area] 64 mL/min/{1.73_m2} Normal >60 [facility] Comment on above: Result Comment: mL/m in/1.73m2 CKD-EPI Creatinine Equation (2020) Performed By: #### L 100.0100, L500.2500 ####[facility] [address] [place], [address] Basophil percentageOrdered B y: Emili Lee on 09-16-2024 Basophils/100 WBC (Bld) 0.4 % Normal 0-1 [facility] Comment on above: Performed By: #### L 100.0100, L500.2500 ####[facility] [address] [place], [address] Body Fluid Culton 09-16-2024 BFC Normal [facility] Comment on above: Performed By: #### M 100.4001, M100.2900, M100.2000, M300.3000, L200.0400, M600.2000, M300.2000 ####[facility] [address] [place], [address] CBC W/Diff, Automatedon 08-31 Absolute Lymph 1.07 X10 3/uL Normal 0.83-4.51 [facility] Comment on above: Performed By: #### L 100.0100, L500.2500 ####[facility] [address] [place], [address] Absolute Neut 7.1 X10 3/uL Normal 2.0-7.7 [facility] Comment on above: Performed By: #### L 100.0100, L500.2500 ####[facility] [address] [place], [address] IG% 0.900 Normal 0.0-0.9 [facility] Comment on above: Result Comment: IG% - Immature Granulocytes (promyelocytes, myelocytes andmetamyelocytes) > 1% indicates that a LEFT SHIFT is Present. Performed By: #### L 100.0100, L500.2500 ####[facility] [address] [place], [address] Nucleated RBC (Bld) [#/Vol] 0 10*3/uL Normal 0-5 [facility] Comment on above: Performed By: #### L 100.0100, L500.2500 ####[facility] [address] [place], [address] RDW SD 50.0 fl High 35.1-43.9 [facility] Comment on above: Performed By: #### L 100.0100, L500.2500 ####[facility] [address] [place], [address] Carbon dioxide, total [Moles /volume] in Central venous bloodOrdered By: Emili Lee on 09-16-2024 CO2 [Moles/Vol] 32.4 mmol/L High 21.0-32.0 [facility] Comment on above: Performed By: #### L 100.0100, L500.2500 ####[facility] [address] [place], [address] Chloride assayOrdered By: Anna Lee on 09-16-2024 Chloride [Moles/Vol] 101 mmol/L Normal 98-108 [facility] Comment on above: Performed By: #### L 100.0100, L500.2500 ####[facility] [address] [place], [address] Consultation - Infectious Dx on 09-16-2024 Consultation - Infectious Dx Normal [facility] Electrocardiogram reportOrde red By: Tejal Holly on 09-16-2024 EKG study [facility] Cardiovascular Services [address] [facility] [place] [address] 12 Lead EKG 09/12/24 0804 MR#: [id number] Acct: [id number] Name: OSCAR WOO Rep #:[id number] : 1950 74 From: Tejal aquino MD Attending Dr: Dr. Fahad Cavanaugh MD Status: ADM IN Ordering Dr: Omar Walters MD Date: 08/31 01/24 [place] [facility] [place]: F C Admitted: 09/14/24 Test Reason [...] ECG Confirmed by ELAYNE COTTER, MARIELENA ([id number]), editor in chief TRINITY ORTIZ ([id number]) on09/16/2024 11:30:54 AM Referred By: Fahad Cavanaugh Confirmed By: MARIELENA HOLLY MD 09/16/24 1130 Date _ Tejal Holly MD CC: Dr. Omar Walters MD; Dr. Kamar Grimes MD; Dr. Fahad Cavanaugh MD ~ Signed [facility] Work Phone: Eosinophil percentageOrdered By: Emili Lee on 09-16-2024 Eosinophils/100 WBC (Bld) 3.2 % Normal 0-5 [facility] Comment on above: Performed By: #### L 100.0100, L500.2500 ####[facility] [address] [place], [address] Erythrocyte distribution wid th ratioOrdered By: Emili Lee on 09-16-2024 Erythrocyte distribution width (RBC) [Ratio] 14.3 % Normal 11.6-14.6 [facility] Comment on above: Performed By: #### L 100.0100, L500.2500 ####[facility] [address] [place], [place], [address] Erythrocyte distribution wid th standard deviationOrdered By: Emili Lee on 09-16-2024 Erythrocyte distribution width (RBC) [Entitic vol] 50.0 fL High 35.1-43.9 [facility] Estimation of creatinine darrell aranceOrdered By: Emili Lee on 09-16-2024 Estimated Creatinine Clearance Calc 65.28 ml/min 50-250 [facility] GFR/1.73 sq M.predicted hans g non-blacks MDRD (S/P/Bld) [Vol rate/Area]Ordered By: Emili Lee on 09-16-2024 Estimated GFR (MDRD) Non-Af Amer 64 >60 [facility] Comment on above: mL/min/1.73m2 CKD-EP I Creatinine Equation (2020) Hemoglobin measurementOrdere d By: Emili Lee on 09-16-2024 Hemoglobin (Bld) [Mass/Vol] 11.0 g/dL Low 12.0-15.0 [facility] Comment on above: Performed By: #### L 100.0100, L500.2500 ####[facility] [address] [place], [place], [id number] Immature granulocytes/100 WB C Auto (Bld)Ordered By: Emili Lee on 09-16-2024 Immature granulocytes/100 WBC (Bld) 0.900 % 0.0-0.9 [facility] Comment on above: IG% - Immature Granu locytes (promyelocytes, myelocytes and metamyelocytes) > 1% indicates that a LEFT SHIFT is Present. Lymphocytes Auto (Unsp spec) [#/Vol]Ordered By: Emili Lee on 09-16-2024 Lymphocytes (Bld) [#/Vol] 1.07 10*3/uL 0.83-4.51 [facility] MCV (mean corpuscular volume ) determinationOrdered By: Emili Lee on 09-16-2024 MCV (RBC) [Entitic vol] 95.7 fL Normal 81-99 [facility] Comment on above: Performed By: #### L 100.0100, L500.2500 ####[facility] [address] [place], [address] Mean corpuscular hemoglobin (MCH) determinationOrdered By: Emili Lee on 09-16-2024 MCH (RBC) [Entitic mass] 29.8 pg Normal 27.0-32.0 [facility] Comment on above: Performed By: #### L 100.0100, L500.2500 ####[facility] [address] [place], [address] Mean corpuscular hemoglobin concentration (MCHC) determinationOrdered By: Emili Lee on 09-16-2024 MCHC (RBC) [Mass/Vol] 31.2 g/dL Low 32-36 [facility] Comment on above: Performed By: #### L 100.0100, L500.2500 ####[facility] [address] [place], [address] Mean platelet volume determi nationOrdered By: Emili Lee on 09-16-2024 Platelet mean volume (Bld) [Entitic vol] 9.4 fL Normal 6.2-12.0 [facility] Comment on above: Performed By: #### L 100.0100, L500.2500 ####[facility] [address] [place], [address] Monocyte percentageOrdered B y: Emili Lee on 09-16-2024 Monocytes/100 WBC (Bld) 7.0 % Normal 0-10 [facility] Comment on above: Performed By: #### L 100.0100, L500.2500 ####[facility] [address] [place], [address] Neutrophil percentageOrdered By: Emili Lee on 09-16-2024 Neutrophils/100 WBC (Bld) 76.9 % High 47-70 [facility] Comment on above: Performed By: #### L 100.0100, L500.2500 ####[facility] [address] [place], [address] Nucleated red blood cell per centageOrdered By: Emili Lee on 09-16-2024 Nucleated RBC/100 WBC (Bld) [Ratio] 0 % 0-5 [facility] Platelet countOrdered By: Anna Lee on 09-16-2024 Platelets (Bld) [#/Vol] 261 10*3/uL Normal 150-450 [facility] Comment on above: Performed By: #### L 100.0100, L500.2500 ####[facility] [address] [facility] [address] Potassium measurement (mass/ volume)Ordered By: Emili Lee on 09-16-2024 Potassium [Moles/Vol] 4.8 mmol/L Normal 3.3-5.1 [facility] Comment on above: Performed By: #### L 100.0100, L500.2500 ####[facility] [address] [place], [address] Serum creatinine measurement (mass/volume)Ordered By: Emili Lee on 09-16-2024 Creatinine [Mass/Vol] 0.93 mg/dL Normal 0.70-1.20 [facility] Comment on above: Performed By: #### L 100.0100, L500.2500 ####[facility] [address] [place], [address] Serum glucose measurement (m ass/volume)Ordered By: Emili Lee on 09-16-2024 Glucose [Mass/Vol] 108 mg/dL High 70-99 [facility] Comment on above: Performed By: #### L 100.0100, L500.2500 ####[facility] [address] [place], [address] Serum or plasma calcium lisa urement (mass/volume)Ordered By: Emili Lee on 09-16-2024 Calcium [Mass/Vol] 8.9 mg/dL Normal 7.6-11.0 [facility] Comment on above: Performed By: #### L 100.0100, L500.2500 ####[facility] [address] [place], [address] Serum or plasma urea nitroge n measurement (mass/volume)Ordered By: Emili Lee on 09-16-2024 Urea nitrogen [Mass/Vol] 24 mg/dL High 4-19 [facility] Comment on above: Performed By: #### L 100.0100, L500.2500 ####[facility] [address] [place] [place], [address] Sodium levelOrdered By: Stephen Lee on 09-16-2024 Sodium [Moles/Vol] 140 mmol/L Normal 133-145 [facility] Comment on above: Performed By: #### L 100.0100, L500.2500 ####[facility] [address] [place], [address] Vancomycin [Mass/Vol]Ordered By: Fahad Cavanaugh on 09-16-2024 Random Vancomycin Level 14.4 ug/mL 0.0-15.0 [facility] Comment on above: VANCOMYCIN STANDARD DRUG THERAPY: CRITICAL VALUE IS > 15.0 mg/L VANCOMYCIN HIGH INTENSITY THERAPY: CRITICAL VALUE IS > 20.0 mg/L PLEASE CONTACT PHARMACY SERVICES (#2639) FOR INTERPRETATIONOF RESULTS. THIS RESULT DOES NOT REPRESENT A PEAK OR TROUGHLEVEL FOR THIS DRUG. Vancomycin, Random Levelon 0 09-16-2024 VANCO, RANDOM 14.4 ug/mL Normal 0.0-15.0 [facility] Comment on above: Result Comment: VANC OMYCIN STANDARD DRUG THERAPY: CRITICAL VALUE IS > 15.0 mg/LVANCOMYCIN HIGH INTENSITY THERAPY: CRITICAL VALUE IS > 20.0 mg/LPLEASE CONTACT PHARMACY SERVICES (#3951) FOR INTERPRETATIONOF RESULTS. THIS RESULT DOES NOT REPRESENT A PEAK OR TROUGHLEVEL FOR THIS DRUG. Performed By: #### L 501.8850 ####[facility] [address] [place], [address] White blood cell (WBC) count Ordered By: Emili Lee on 09-16-2024 WBC (Bld) [#/Vol] 9.2 10*3/uL Normal 4.4-11.0 [facility] Comment on above: Performed By: #### L 100.0100, L500.2500 ####[facility] [address] [place], [address] Wound Cultureon 09-16-2024 [facility] Comment on above: Performed By: #### M 100.4001, M600.2000, M300.2000, M300.3000, M100.2000, M100.3000, M600.2200 ####[facility] [address] [place], [address] [facility] Comment on above: Performed By: #### M 100.2000, M600.2200, M300.2000, M100.3000, M300.3000, M600.2000, M100.4001 ####[facility] [address] [place], [address] [facility] Comment on above: Performed By: #### M 100.3000, M300.2000, M600.2200, M300.3000, M100.2000, M600.2000, M100.4001 ####[facility] [address] [place], [address] Basic Metabolic Profile (BMP )on 09-15-2024 BUN/CRE 29.0 RATIO High 10-20 [facility] Comment on above: Performed By: #### L 500.2500, L100.0500 ####[facility] [address] [place], [address] Calcium [Mass/Vol] 8.4 mg/dL Normal 7.6-11.0 [facility] Comment on above: Performed By: #### L 500.2500, L100.0500 ####[facility] [address] [place], [address] Chloride [Moles/Vol] 99 mmol/L Normal 98-108 [facility] Comment on above: Performed By: #### L 500.2500, L100.0500 ####[facility] [address] [place], [address] CO2 [Moles/Vol] 24.7 mmol/L Normal 21.0-32.0 [facility] Comment on above: Performed By: #### L 500.2500, L100.0500 ####[facility] [address] [place], [address] Creatinine [Mass/Vol] 1.12 mg/dL Normal 0.70-1.20 [facility] Comment on above: Performed By: #### L 500.2500, L100.0500 ####[facility] [address] [place], [address] ECRCL 54.21 ml/min Normal 50-250 [facility] Comment on above: Performed By: #### L 500.2500, L100.0500 ####[facility] [address] [place], [address] GAP 11 Normal 5-15 [facility] Comment on above: Performed By: #### L 500.2500, L100.0500 ####[facility] [address] [place], [address] GFR/1.73 sq M.predicted among non-blacks MDRD (S/P/Bld) [Vol rate/Area] 51 mL/min/{1.73_m2} Low >60 [facility] Comment on above: Result Comment: mL/m in/1.73m2 CKD-EPI Creatinine Equation (2020) Performed By: #### L 500.2500, L100.0500 ####[facility] [address] [place], [address] Glucose [Mass/Vol] 100 mg/dL High 70-99 [facility] Comment on above: Performed By: #### L 500.2500, L100.0500 ####[facility] [address] [place], [address] Potassium [Moles/Vol] 4.1 mmol/L Normal 3.3-5.1 [facility] Comment on above: Result Comment: Hemo lysis present, Results??could be affected.?? Performed By: #### L 500.2500, L100.0500 ####[facility] [address] [place], [address] Sodium [Moles/Vol] 135 mmol/L Normal 133-145 [facility] Comment on above: Performed By: #### L 500.2500, L100.0500 ####[facility] [address] [place], [address] Urea nitrogen [Mass/Vol] 33 mg/dL High 4-19 [facility] Comment on above: Performed By: #### L 500.2500, L100.0500 ####[facility] [address] [place], [address] CBC-Complete Blood Cnt No Di ffon 09-15-2024 Erythrocyte distribution width (RBC) [Ratio] 14.1 % Normal 11.6-14.6 [facility] Comment on above: Performed By: #### L 500.2500, L100.0500 ####[facility] [address] [place], [address] Hematocrit (Bld) [Volume fraction] 36.4 % Low 37-47 [facility] Comment on above: Performed By: #### L 500.2500, L100.0500 ####[facility] [address] [place], [address] Hemoglobin (Bld) [Mass/Vol] 11.5 g/dL Low 12.0-15.0 [facility] Comment on above: Performed By: #### L 500.2500, L100.0500 ####[facility] [address] [place], [address] MCH (RBC) [Entitic mass] 29.4 pg Normal 27.0-32.0 [facility] Comment on above: Performed By: #### L 500.2500, L100.0500 ####[facility] [address] [place], [address] MCHC (RBC) [Mass/Vol] 31.6 g/dL Low 32-36 [facility] Comment on above: Performed By: #### L 500.2500, L100.0500 ####[facility] [address] [place], [address] MCV (RBC) [Entitic vol] 93.1 fL Normal 81-99 [facility] Comment on above: Performed By: #### L 500.2500, L100.0500 ####[facility] [address] [place], [address] Platelet mean volume (Bld) [Entitic vol] 10.0 fL Normal 6.2-12.0 [facility] Comment on above: Performed By: #### L 500.2500, L100.0500 ####[facility] [address] [place], [address] Platelets (Bld) [#/Vol] 238 10*3/uL Normal 150-450 [facility] Comment on above: Performed By: #### L 500.2500, L100.0500 ####[facility] [address] [place], [address] RBC (Bld) [#/Vol] 3.91 10*6/uL Low 4.2-5.4 [facility] Comment on above: Performed By: #### L 500.2500, L100.0500 ####[facility] [address] [place], [address] RDW SD 48.1 fl High 35.1-43.9 [facility] Comment on above: Performed By: #### L 500.2500, L100.0500 ####[facility] [address] [place], [address] WBC (Bld) [#/Vol] 9.6 10*3/uL Normal 4.4-11.0 [facility] Comment on above: Performed By: #### L 500.2500, L100.0500 ####[facility] [address] [place], [address] Chest PA and Lateralon 09-15 Chest PA and Lateral Normal [facility] M100.019on 09-15-2024 M100.019 Negative Normal [facility] Comment on above: Performed By: #### M 100.638, M100.019 ####[facility] [address] [place], [address] RESPIRATORY PANEL MOLECULARo n 09-15-2024 RP PANEL Normal [facility] Comment on above: Performed By: #### M 100.638, M100.019 ####[facility] [address] [place], [address] Respiratory pathogens DNA an d RNA panel RANJIT+probe (Resp)Ordered By: Emili Lee on 09-15-2024 Respiratory Panel (PCR) [facility] Roni-jxd-2Hobgkqd By: Emili Lee on 09-15-2024 SARS-CoV-2 (COVID-19) RNA RANJIT+probe Ql (Unsp spec) [facility] Vancomycin, Trough Levelon 0 09-15-2024 VANCO, TROUGH 22.8 ug/mL High 5.0-15.0 [facility] Comment on above: Order Comment: Comme nts: DRAW 30 MIN PRIOR TO [id number] Result Comment: Zackery mmended goal trough ranges are generally 10-15 mcg/mlfor less severe/complicated infections such as cellulitisor UTI and 15-20 mcg/ml for more severe/complicatedinfections such as bacteremia/sepsis, osteomyelitis,pneumonia or meningitis. Goal trough ranges should takeinto account indication, patient-specific factors andorganism ESPERANZA.VANCOMYCIN STANDARED DRUG THERAPY TROUGH LEVEL: 5.0 - 15.0 mg/LVANCOMYCIN HIGH INTENSITY THERAPY TROUGH LEVEL: 15.0 - 20.0 mg/LHigh Intensity therapy recommended for serious lifethreatening infections include:- Ibvxqzstsj-Bmcqwghdudun-Nfiokglfy (Ventilator/Healtcare Associated)-SepsisPLEASE CONTACT PHARMACY SERVICES (#8840) FOR INTERPRETATIONOF RESULTS. Performed By: #### L 501.8820 ####[facility] [address] [place], [address] Basic Metabolic Profile (BMP )on 09-14-2024 BUN/CRE 18.8 RATIO Normal 10-20 [facility] Comment on above: Performed By: #### L 500.2500, L100.0500 ####[facility] [address] [place], [address] Calcium [Mass/Vol] 8.3 mg/dL Normal 7.6-11.0 [facility] Comment on above: Performed By: #### L 500.2500, L100.0500 ####[facility] [address] [place], [address] Chloride [Moles/Vol] 93 mmol/L Low 98-108 [facility] [facility] Comment on above: Performed By: #### L 500.2500, L100.0500 ####[facility] [address] [place], [address] CO2 [Moles/Vol] 26.4 mmol/L Normal 21.0-32.0 [facility] Comment on above: Performed By: #### L 500.2500, L100.0500 ####[facility] [address] [place], [address] Creatinine [Mass/Vol] 1.28 mg/dL High 0.70-1.20 [facility] Comment on above: Performed By: #### L 500.2500, L100.0500 ####[facility] [address] [place], [address] ECRCL 47.43 ml/min Low 50-250 [facility] Comment on above: Performed By: #### L 500.2500, L100.0500 ####[facility] [address] [place], [address] GAP 12 Normal 5-15 [facility] Comment on above: Performed By: #### L 500.2500, L100.0500 ####[facility] [address] [place], [address] GFR/1.73 sq M.predicted among non-blacks MDRD (S/P/Bld) [Vol rate/Area] 44 mL/min/{1.73_m2} Low >60 [facility] Comment on above: Result Comment: mL/m in/1.73m2 CKD-EPI Creatinine Equation (2020) Performed By: #### L 500.2500, L100.0500 ####[facility] [address] [place], [address] Glucose [Mass/Vol] 111 mg/dL High 70-99 [facility] Comment on above: Performed By: #### L 500.2500, L100.0500 ####[facility] [address] [place], [address] Potassium [Moles/Vol] 4.0 mmol/L Normal 3.3-5.1 [facility] Comment on above: Performed By: #### L 500.2500, L100.0500 ####[facility] [address] [place], [address] Sodium [Moles/Vol] 131 mmol/L Low 133-145 [facility] Comment on above: Performed By: #### L 500.2500, L100.0500 ####[facility] [address] [place], [address] Urea nitrogen [Mass/Vol] 24 mg/dL High 4-19 [facility] Comment on above: Performed By: #### L 500.2500, L100.0500 ####[facility] [address] [place], [address] CBC-Complete Blood Cnt No Di ffon 09-14-2024 Erythrocyte distribution width (RBC) [Ratio] 14.0 % Normal 11.6-14.6 [facility] Comment on above: Performed By: #### L 500.2500, L100.0500 ####[facility] [address] [place], [address] Hematocrit (Bld) [Volume fraction] 32.5 % Low 37-47 [facility] Comment on above: Performed By: #### L 500.2500, L100.0500 ####[facility] [address] [place], [address] Hemoglobin (Bld) [Mass/Vol] 10.2 g/dL Low 12.0-15.0 [facility] Comment on above: Performed By: #### L 500.2500, L100.0500 ####[facility] [address] [place], [address] MCH (RBC) [Entitic mass] 29.6 pg Normal 27.0-32.0 [facility] Comment on above: Performed By: #### L 500.2500, L100.0500 ####[facility] [address] [place], [address] MCHC (RBC) [Mass/Vol] 31.4 g/dL Low 32-36 [facility] Comment on above: Performed By: #### L 500.2500, L100.0500 ####[facility] [address] [place], [address] MCV (RBC) [Entitic vol] 94.2 fL Normal 81-99 [facility] Comment on above: Performed By: #### L 500.2500, L100.0500 ####[facility] [address] [place], [address] Platelet mean volume (Bld) [Entitic vol] 10.1 fL Normal 6.2-12.0 [facility] Comment on above: Performed By: #### L 500.2500, L100.0500 ####[facility] [address] [place], [address] Platelets (Bld) [#/Vol] 239 10*3/uL Normal 150-450 [facility] Comment on above: Performed By: #### L 500.2500, L100.0500 ####[facility] [address] [place], [address] RBC (Bld) [#/Vol] 3.45 10*6/uL Low 4.2-5.4 [facility] Comment on above: Performed By: #### L 500.2500, L100.0500 ####[facility] [address] [place], [address] RDW SD 48.3 fl High 35.1-43.9 [facility] Comment on above: Performed By: #### L 500.2500, L100.0500 ####[facility] [address] [place], [address] WBC (Bld) [#/Vol] 11.3 10*3/uL High 4.4-11.0 [facility] Comment on above: Performed By: #### L 500.2500, L100.0500 ####[facility] [address] [place], [address] Gram Stainon 09-14-2024 GS UNK UNK Left Posterior Synovium - collected in [place] Gram Stain Very Rare Gram positive cocci Normal [facility] Comment on above: Performed By: #### M 100.2000, M600.2200, M300.2000, M100.3000, M300.3000, M600.2000, M100.4001 ####[facility] [address] [place], [address] GS UNK UNK Left Glenosphere Membrane - collected in [place] Gram Stain Very Rare Gram positive cocci 1+ White Blood Cells Normal [facility] Comment on above: Performed By: #### M 100.3000, M300.2000, M600.2200, M300.3000, M100.2000, M600.2000, M100.4001 ####[facility] [address] [place], [address] GS UNK UNK Left Humeral Membrane - collected in [place] Gram Stain 4+ Gram positive cocci in clusters Normal [facility] Comment on above: Performed By: #### M 100.4001, M600.2000, M300.2000, M300.3000, M100.2000, M100.3000, M600.2200 ####[facility] [address] [place], [address] Bacteria identified Anaer cx Nom (Unsp spec)Ordered By: Fahad Cavanaugh on 09-13-2024 Anaerobic Culture No anaerobic bacteri a isolated. [facility] Bedside Glucoseon 09-13-2024 FINGERSTICK GLU 88 mg/dL Normal 74-106 [facility] Comment on above: Result Comment: ROSA ISELA GEMENT OF PATIENT CARE PER NURSING PROTOCOL Performed By: #### L 501.080 ####[facility] [address] [place], [address] Blood cultureOrdered By: Jonathan Cavanaugh on 09-13-2024 Bacteria identified Cx Nom (Bld) No growth in 5 days. [facility] deOrdered By: Fahad Cavanaugh on 09-13-2024 Bedside Glucose (Misc Panel) 88 mg/dL 74-106 [facility] Comment on above: MANAGEMENT OF PATIEN T CARE PER NURSING PROTOCOL Gram stainOrdered By: Fahad Cavanaugh on 09-13-2024 Microscopic observation Gram stain Nom (Unsp spec) [facility] MR/POSTOP.ANEon 09-13-2024 MR/POSTOP.ANE Normal [facility] MR/[id number] 09-13-2024 MR/POSTOPAN2 Normal [facility] MRSA/SAID NASAL SCREENon MRSA+SAID SCRN Reason for Exam: PRE OP MRSA MRSA Negative S. AUREUS S. aureus PositiveA Normal [facility] Comment on above: Performed By: #### M 100.651 ####[facility] [address] [place], [address] Operative Reporton Operative Report Normal [facility] Routine wound cultureOrdered By: Fahad Cavanaugh on 09-13-2024 Wound Culture Staphylococcus aureus Abnormal [facility] Shoulder min 2 Viewson 09-13 Shoulder min 2 Views Normal [facility] CBC-Complete Blood Cnt No Di ffon 09-12-2024 Erythrocyte distribution width (RBC) [Ratio] 13.7 % Normal 11.6-14.6 [facility] Comment on above: Performed By: #### L 501.5200, L100.0500 ####[facility] [address] [place], [address] Hematocrit (Bld) [Volume fraction] 37.2 % Normal 37-47 [facility] Comment on above: Performed By: #### L 501.5200, L100.0500 ####[facility] [address] [place], [address] Hemoglobin (Bld) [Mass/Vol] 12.2 g/dL Normal 12.0-15.0 [facility] Comment on above: Performed By: #### L 501.5200, L100.0500 ####[facility] [address] [place], [address] MCH (RBC) [Entitic mass] 30.0 pg Normal 27.0-32.0 [facility] Comment on above: Performed By: #### L 501.5200, L100.0500 ####[facility] [address] [place], [address] MCHC (RBC) [Mass/Vol] 32.8 g/dL Normal 32-36 [facility] Comment on above: Performed By: #### L 501.5200, L100.0500 ####[facility] [address] [place], [address] MCV (RBC) [Entitic vol] 91.6 fL Normal 81-99 [facility] Comment on above: Performed By: #### L 501.5200, L100.0500 ####[facility] [address] [place], [address] Platelet mean volume (Bld) [Entitic vol] 10.1 fL Normal 6.2-12.0 [facility] Comment on above: Performed By: #### L 501.5200, L100.0500 ####[facility] [address] [place], [address] Platelets (Bld) [#/Vol] 230 10*3/uL Normal 150-450 [facility] Comment on above: Performed By: #### L 501.5200, L100.0500 ####[facility] [address] [place], [address] RBC (Bld) [#/Vol] 4.06 10*6/uL Low 4.2-5.4 [facility] Comment on above: Performed By: #### L 501.5200, L100.0500 ####[facility] [address] [place], [address] RDW SD 47.1 fl High 35.1-43.9 [facility] Comment on above: Performed By: #### L 501.5200, L100.0500 ####[facility] [address] [place], [address] WBC (Bld) [#/Vol] 10.0 10*3/uL Normal 4.4-11.0 [facility] Comment on above: Performed By: #### L 501.5200, L100.0500 ####[facility] [address] [place], [address] Gram Stainon 09-12-2024 GS Results called on 09/12/24-1023 by FOREST to [phone]. UNK UNK Test not performed Normal [facility] Comment on above: Performed By: #### M 100.4001, M100.2900, M100.2000, M300.3000, L200.0400, M600.2000, M300.2000 ####[facility] [address] [place], [address] MR/PAT.ANEon 09-12-2024 MR/PAT.ANE Normal [facility] MR/PAT.ANE Normal [facility] MRSA screenOrdered By: Mike Cavanaugh on 09-12-2024 Nasal Screen MRSA/MSSA [facility] Magnesiumon 09-12-2024 Magnesium [Mass/Vol] 1.7 mg/dL Normal 1.5-2.2 [facility] Comment on above: Performed By: #### L 501.5200, L100.0500 ####[facility] [address] [place], [address] Magnesium (Unsp spec) [Mass/ Vol]Ordered By: Omar Walters on 09-12-2024 Magnesium [Mass/Vol] 1.7 mg/dL 1.5-2.2 [facility] Appearance (Syn fld)Ordered By: Fahad Cavanaugh on 09-11-2024 Synovial Fluid Appearance Cloudy CLEAR [facility] Bacteria identified Anaer cx Nom (Unsp spec)Ordered By: Fahad Cavanaugh on 09-11-2024 Anaerobic Culture No anaerobic bacteri a isolated. [facility] Basic Metabolic Profile (BMP )on 09-11-2024 BUN/CRE 28.5 RATIO High 10-20 [facility] Comment on above: Performed By: #### L 500.2500 ####[facility] [address] [place], [address] Calcium [Mass/Vol] 9.5 mg/dL Normal 7.6-11.0 [facility] Comment on above: Performed By: #### L 500.2500 ####[facility] [address] [place], [address] Chloride [Moles/Vol] 96 mmol/L Low 98-108 [facility] Comment on above: Performed By: #### L 500.2500 ####[facility] [address] [place], [address] CO2 [Moles/Vol] 31.1 mmol/L Normal 21.0-32.0 [facility] Comment on above: Performed By: #### L 500.2500 ####[facility] [address] [place], [address] Creatinine [Mass/Vol] 1.01 mg/dL Normal 0.70-1.20 [facility] Comment on above: Performed By: #### L 500.2500 ####[facility] [address] [place], [address] GAP 11 Normal 5-15 [facility] Comment on above: Performed By: #### L 500.2500 ####[facility] [address] [place], [address] GFR/1.73 sq M.predicted among non-blacks MDRD (S/P/Bld) [Vol rate/Area] 58 mL/min/{1.73_m2} Low >60 [facility] Comment on above: Result Comment: mL/m in/1.73m2 CKD-EPI Creatinine Equation (2020) Performed By: #### L 500.2500 ####[facility] [address] [place], [address] Glucose [Mass/Vol] 105 mg/dL High 70-99 [facility] Comment on above: Performed By: #### L 500.2500 ####[facility] [address] [place], [address] Potassium [Moles/Vol] 3.3 mmol/L Normal 3.3-5.1 [facility] Comment on above: Performed By: #### L 500.2500 ####[facility] [address] [place], [address] Sodium [Moles/Vol] 137 mmol/L Normal 133-145 [facility] Comment on above: Performed By: #### L 500.2500 ####[facility] [address] [place], [address] Urea nitrogen [Mass/Vol] 29 mg/dL High 4-19 [facility] Comment on above: Performed By: #### L 500.2500 ####[facility] [address] [place], [address] Body fluid cultureOrdered By : Fahad Cavanaugh on 09-11-2024 Body Fluid Culture Meth. resistant Stap h. aureus Abnormal [facility] Cells Counted Total (Syn fld ) [#]Ordered By: Fahad Cavanaugh on 09-11-2024 Synovial Fluid Total Cells Counted 43.9600 10^3/uL High 0.000-0.000 [facility] Comment on above: This is the Total Nu mber of Nucleated Cell Types in the Body Fluid. Color (Syn fld)Ordered By: Celine Cavanaugh on 09-11-2024 Synovial Fluid Color Yellow Pale Yellow [facility] Gram stainOrdered By: Fahad Cavanaugh on 09-11-2024 Microscopic observation Gram stain Nom (Unsp spec) [facility] Lymphocytes/100 WBC (Bld)Ord ered By: Fahad Cavanaugh on 09-11-2024 Synovial Fluid Lymphocytes 4 % [facility] Monocytes/100 WBC (Syn fld)O rdered By: Fahad Cavanaugh on 09-11-2024 Synovial Fluid Monocytes 2 % [facility] Mononuclear cells Auto (Syn fld) [#/Vol]Ordered By: Fahad Cavanaugh on 09-11-2024 Synovial Fluid Mononuclear WBCs 3.460 10^3/ul [facility] Mononuclear cells/100 WBC (S yn fld)Ordered By: Fahad Cavanaugh on 09-11-2024 Synovial Fluid Mononuclear WBCs % 9.0 % [facility] Neutrophils/100 WBC (Syn fld )Ordered By: Fahad Cavanaugh on 09-11-2024 Synovial Fluid Neutrophils 94 % High 0-25 [facility] Pathologist review Fahad (Unsp spec) [Interp]Ordered By: Fahad Cavanaugh on 09-11-2024 Synovial Fluid Pathologist Comment May follow [facility] Polymorphonuclear cells Auto (Syn fld) [#/Vol]Ordered By: Fahad Cavanaugh on 09-11-2024 Synovial Fluid Polynuclear WBCs 34.879 10^3/uL [facility] Polymorphonuclear cells/100 WBC Auto (Syn fld)Ordered By: Fahad Cavanaugh on 09-11-2024 Synovial Fluid Polynuclear WBCs % 91.0 % [facility] RBC (Syn fld) [#/Vol]Ordered By: Fahad Cavanaugh on 09-11-2024 Synovial Fluid RBC 0.015 10^6/uL High 0-0 [facility] Specimen source Nom (Body fl d)Ordered By: Fahad Cavanaugh on 09-11-2024 Synovial Fluid Source SHOULDER [facility] Viscosity Ql (Syn fld)Ordere d By: Fahad Cavanaugh on 09-11-2024 Synovial Fluid Viscosity Viscous HIGH [facility] WBC Auto (Syn fld) [#/Vol]Or dered By: Fahad Cavanaugh on 09-11-2024 Synovial Fluid WBC 43.6850 10^3/uL High 0.000-0.002 [facility] C-REACTIVE PROTEINon 025 CRP 13.29 mg/dl High 0.00 - 0.90 [facility] Comment on above: Performed By: #### 2 75189 #### [facility],[address] [place] [address] CBC + DIFFon 09-10-2024 Baso # 0.03 x10EE3/UL Normal 0.00 - 0.10 [facility] Comment on above: Performed By: #### 2 91011 #### [facility],[address] [place] [address] Basophils/100 WBC (Bld) 0.3 % Normal 0.0 - 2.0 [facility] Comment on above: Performed By: #### 2 25470 #### [facility],[address] [place] [address] CBC + DIFF Normal [facility] Comment on above: Result Comment: CBC- COMPLETE BLOOD COUNT Performed By: #### 2 05100 #### [facility],[address] [place] [address] EO # 0.22 x10EE3/UL Normal 0.00 - 0.50 [facility] Comment on above: Performed By: #### 2 29521 #### [facility],[address] [place] [address] Eosinophils/100 WBC (Bld) 2.2 % Normal 0.0 - 7.0 [facility] Comment on above: Performed By: #### 2 39320 #### [facility],[address] [place] [address] Erythrocyte distribution width (RBC) [Ratio] 13.4 % Normal 12.0 - 15.6 [facility] Comment on above: Performed By: #### 2 51615 #### [facility],[address] [place], [place] [address] Hematocrit (Bld) [Volume fraction] 39.5 % Normal 34.0 - 46.0 [facility] Comment on above: Performed By: #### 2 40053 #### [facility],[address] [place] [address] Hemoglobin (Bld) [Mass/Vol] 13.6 g/dL Normal 12.0 - 16.0 [facility] Comment on above: Performed By: #### 2 38453 #### [facility],[address] [place] [address] Lymph # 1.07 x10EE3/UL Normal 0.80 - 2.80 [facility] Comment on above: Performed By: #### 2 09143 #### [facility],[address] [place] [address] Lymphocytes/100 WBC (Bld) 10.6 % Low 20.0 - 45.0 [facility] Comment on above: Performed By: #### 2 25125 #### [facility],[address] [place] [address] MANUAL DIFF N/A Normal [facility] Comment on above: Performed By: #### 2 12903 #### [facility],[address] [place] [address] MCH (RBC) [Entitic mass] 31 pg Normal 27 - 33 [facility] Comment on above: Performed By: #### 2 81593 #### [facility],[address] [place] [address] MCHC 35 X10 3 Normal 32 - 36 [facility] Comment on above: Performed By: #### 2 37425 #### [facility],[address] [place] [address] MCV (RBC) [Entitic vol] 90 fL Normal 80 - 99 [facility] Comment on above: Performed By: #### 2 44919 #### [facility],[address] [place] [address] Lyon # 1.00 x10EE3/UL Normal 0.20 - 1.00 [facility] Comment on above: Performed By: #### 2 71093 #### [facility],[address] [place] [address] MONOS % 9.9 % Normal 0.0 - 10.0 [facility] Comment on above: Performed By: #### 2 27021 #### [facility],[address] [place] [address] Morphology Fahad (Bld) [Interp] N/A Normal [facility] Comment on above: Performed By: #### 2 97447 #### [facility],[address] [place] [address]76 Neut # 7.73 x10EE3/UL High 1.50 - 7.10 [facility] Comment on above: Performed By: #### 2 47971 #### [facility],[address] [place] [address] Neutrophils/100 WBC (Bld) 77.0 % High 46.0 - 76.0 [facility] Comment on above: Performed By: #### 2 18692 #### [facility],[address] [place] [address] PLATELET 233 x10EE3/UL Normal 150 - 450 [facility] Comment on above: Performed By: #### 2 43817 #### [facility],[address] [place] [address] Platelet mean volume (Bld) [Entitic vol] 8.5 fL Normal 6.6 - 10.5 [facility] Comment on above: Result Comment: AUTO MATED DIFFERENTIAL Performed By: #### 2 46180 #### [facility],[address] [place] [address] RBC 4.39 x 10EE6/UL Normal 4.10 - 5.30 [facility] Comment on above: Performed By: #### 2 54434 #### [facility],[address] [place] [address] WBC 10.0 x 10EE3/UL Normal 4.5 - 10.8 [facility] Comment on above: Performed By: #### 2 65129 #### [facility],[address] [place] [address] SEDRATEon 09-10-2024 SEDRATE 83 mm/hr High 0 - 30 [facility] Comment on above: Performed By: #### 2 38529 #### [facility],[address] [place] [address] Absolute lymphocyte countOrd ered By: Kamar Grimes on 10-19-2023 Lymphocytes Auto (Unsp spec) [#/Vol] 1.54 10*3/uL 0.83-4.51 [facility] Automated lymphocyte count a s percentage of total leukocytesOrdered By: Kamar Grimes on 10-19-2023 Lymphocytes/100 WBC Auto (Unsp spec) 25.0 % 19-41 [facility] Basophil percentageOrdered B y: Kamar Grimes on 10-19-2023 Basophils/100 WBC (Bld) 0.6 % 0-1 [facility] Bilirubin [Mass/Vol] 0.40 mg/dL 0.20-1.00 [facility] Comment on above: For patients on eltr ombopag therapy, use of Dimension [place] TBIL is not recommended. Chloride [Moles/Vol] 103 mmol/L 98-107 [facility] Eosinophils/100 WBC (Bld) 2.8 % 0-5 [facility] Glucose [Mass/Vol] 105 mg/dL 74-106 [facility] Comment on above: Fasting Glucose resu lt from 100 to 125 mg/dL suggests IMPAIRED HOMEOSTASIS per A.D.A. criteria. Hemoglobin (Bld) [Mass/Vol] 14.4 g/dL 12.0-15.0 [facility] Monocytes/100 WBC (Bld) 8.1 % 0-10 [facility] Neutrophils (Bld) [#/Vol] 3.9 10*3/uL 2.0-7.7 [facility] Neutrophils/100 WBC (Bld) 63.0 % 47-70 [facility] Potassium [Moles/Vol] 4.8 mmol/L 3.5-5.1 [facility] Protein [Mass/Vol] 7.5 g/dL 6.4-8.2 [facility] Sodium [Moles/Vol] 139 mmol/L 136-145 [facility] WBC (Bld) [#/Vol] 6.2 10*3/uL 4.4-11.0 [facility] Determination of erythrocyte mean corpuscular volume (MCV)Ordered By: Kamar Grimes on 10-19-2023 MCV (RBC) [Entitic vol] 94.8 fL 81-99 [facility] Erythrocyte distribution wid th ratioOrdered By: Kamar Grimes on 10-19-2023 Erythrocyte distribution width (RBC) [Ratio] 13.9 % 11.6-14.6 [facility] Erythrocyte distribution wid th standard deviationOrdered By: Kamar Grimes on 10-19-2023 Erythrocyte distribution width (RBC) [Entitic vol] 49.0 fL 35.1-43.9 [facility] Hematocrit Auto (Bld) [Volum e fraction]Ordered By: Kamar Grimes on 10-19-2023 Hematocrit (Bld) [Volume fraction] 46.0 % 37-47 [facility] Immature granulocytes/100 WB C Auto (Bld)Ordered By: Kamar Grimes on 10-19-2023 Immature granulocytes/100 WBC (Bld) 0.500 % 0.0-0.9 [facility] Comment on above: IG% - Immature Granu locytes (promyelocytes, myelocytes and metamyelocytes) > 1% indicates that a LEFT SHIFT is Present. Laboratory - Chemistry and C hemistry - challengeOrdered By: Kamar Grimes on 10-19-2023 Albumin/Globulin [Mass ratio] 1.0 {ratio} 0.9-2.4 [facility] ALP [Catalytic activity/Vol] 121 U/L 45-117 [facility] ALT [Catalytic activity/Vol] 28 U/L 13-56 [facility] CO2 [Moles/Vol] 32.0 mmol/L 21.0-32.0 [facility] Ferritin [Mass/Vol] 72 ng/mL 8-252 [facility] Globulin (S) [Mass/Vol] 3.8 g/dL 2.2-4.2 [facility] Magnesium [Mass/Vol] 2.0 mg/dL 1.6-2.6 [facility] Urea nitrogen/Creatinine [Mass ratio] 28.6 mg/mg 10-20 [facility] Laboratory - Hematology and Cell countsOrdered By: Kamar Grimes on 10-19-2023 MCH (RBC) [Entitic mass] 29.7 pg 27.0-32.0 [facility] MCHC (RBC) [Mass/Vol] 31.3 g/dL 32-36 [facility] Nucleated RBC/100 WBC (Bld) [Ratio] 0 % 0-5 [facility] Platelet mean volume (Bld) [Entitic vol] 11.8 fL 6.2-12.0 [facility] Platelets (Bld) [#/Vol] 192 10*3/uL 150-450 [facility] No Panel InformationOrdered By: Kamar Grimes on 10-19-2023 Estimated GFR (MDRD) Amer 61 mL/min >60 [facility] Comment on above: GFR Calc Estimated GFR (MDRD) Non-Af Amer 50 mL/min >60 [facility] Comment on above: Non- GFR Calc Urine Microalbumin/Creatinine Ratio 180.8 mg/g CRE <30 [facility] RBC Auto (Bld) [#/Vol]Ordere d By: Kamar Grimes on 10-19-2023 RBC (Bld) [#/Vol] 4.85 10*6/uL 4.2-5.4 [facility] Serum or plasma calcium lisa urement (mass/volume)Ordered By: Kamar Grimes on 10-19-2023 Calcium [Mass/Vol] 9.8 mg/dL 8.5-10.1 [facility] Serum or plasma creatinine m easurement (mass/volume)Ordered By: Kamar Grimes on 10-19-2023 Creatinine [Mass/Vol] 1.12 mg/dL 0.55-1.02 [facility] Comment on above: The validity of the calculated GFR & GFRAA in patients over 70 years has not been determined. Clinical correlation is essential. Serum or plasma thyroid stim ulating hormone (TSH) measurement (units/volume)Ordered By: Kamar Grimes on 10-19-2023 TSH Qn 1.61 uIU/mL 0.358-3.74 [facility] Serum or plasma urea nitroge n measurement (mass/volume)Ordered By: Kamar Grimes on 10-19-2023 Urea nitrogen [Mass/Vol] 32 mg/dL 7-18 [facility] Thin prep Papanicolaou smear with manual screeningOrdered By: Kamar Grimes on 10-19-2023 Thin prep Papanicolaou smear with manual screening 3.7 g/dL 3.2-5.0 [facility] Thin prep Papanicolaou smear with manual screening 25 U/L 15-37 [facility] Thin prep Papanicolaou smear with manual screening 4 5-15 [facility] Thin prep Papanicolaou smear with manual screening 79.0 mg/L NO RANGE EST. [facility] Urine creatinine measurement (mass/volume)Ordered By: Kamar Grimes on 10-19-2023 Creatinine (U) [Mass/Vol] 43.70 mg/dL NO RANGE EST. [facility] Absolute lymphocyte countOrd ered By: Dr. Grimes on 10-18-2022 Lymphocytes Auto (Unsp spec) [#/Vol] 1.84 10*3/uL 0.83-4.51 [facility] Basophil percentageOrdered B y: Dr. Grimes on 10-18-2022 Basophils/100 WBC (Bld) 0.9 % 0-1 [facility] Bilirubin [Mass/Vol] 0.50 mg/dL 0.20-1.00 [facility] Comment on above: For patients on eltr ombopag therapy, use of Dimension [place] TBIL is not recommended. Chloride [Moles/Vol] 106 mmol/L 98-107 [facility] Cholesterol [Mass/Vol] 315 mg/dL <200 [facility] Comment on above: <200 mg/dL Desirable 200-240 mg/dL Borderline >240 mg/dL High Risk Eosinophils/100 WBC (Bld) 3.2 % 0-5 [facility] Glucose [Mass/Vol] 94 mg/dL 74-106 [facility] Neutrophils (Bld) [#/Vol] 4.3 10*3/uL 2.0-7.7 [facility] Neutrophils/100 WBC (Bld) 61.3 % 47-70 [facility] Potassium [Moles/Vol] 4.5 mmol/L 3.5-5.1 [facility] Protein [Mass/Vol] 7.1 g/dL 6.4-8.2 [facility] Sodium [Moles/Vol] 137 mmol/L 136-145 [facility] Triglyceride [Mass/Vol] 246 mg/dL <199 [facility] Comment on above: The drugs N-Acetylcy steine and Metamizole may falsely depress this assay.Serum Triglycerides Reference Interval Normal <150 mg/dL Borderline high 150 - 199 mg/dL High 200 - 499 mg/dL Very High > or = 500 mg/dL WBC (Bld) [#/Vol] 6.9 10*3/uL 4.4-11.0 [facility] Blood erythrocytes count (nu mber/volume)Ordered By: Dr. Grimes on 10-18-2022 RBC (Bld) [#/Vol] 4.89 10*6/uL 4.2-5.4 [facility] Blood hemoglobin measurement (mass/volume)Ordered By: Dr. Grimes on 10-18-2022 Hemoglobin (Bld) [Mass/Vol] 14.1 g/dL 12.0-15.0 [facility] Blood lymphocytes/100 leukoc ytesOrdered By: Dr. Grimes on 10-18-2022 Lymphocytes/100 WBC (Bld) 26.6 % 19-41 [facility] Blood monocytes/100 leukocyt esOrdered By: Dr. Grimes on 10-18-2022 Monocytes/100 WBC (Bld) 7.4 % 0-10 [facility] Blood platelet mean volumeOr dered By: Dr. Grimes on 10-18-2022 Platelet mean volume (Bld) [Entitic vol] 10.9 fL 6.2-12.0 [facility] Determination of erythrocyte mean corpuscular volume (MCV)Ordered By: Dr. Grimes on 10-18-2022 MCV (RBC) [Entitic vol] 92.6 fL 81-99 [facility] Hematocrit Auto (Bld) [Volum e fraction]Ordered By: Dr. Grimes on 10-18-2022 Hematocrit (Bld) [Volume fraction] 45.3 % 37-47 [facility] Laboratory - Chemistry and C hemistry - challengeOrdered By: Dr. Grimes on 10-18-2022 ALP [Catalytic activity/Vol] 113 U/L 45-117 [facility] ALT [Catalytic activity/Vol] 34 U/L 13-56 [facility] CO2 [Moles/Vol] 27.0 mmol/L 21.0-32.0 [facility] Globulin (S) [Mass/Vol] 3.6 g/dL 2.2-4.2 [facility] Urea nitrogen/Creatinine [Mass ratio] 24.5 mg/mg 10-20 [facility] Laboratory - Hematology and Cell countsOrdered By: Dr. Grimes on 10-18-2022 Erythrocyte distribution width (RBC) [Entitic vol] 45.0 fL 35.1-43.9 [facility] Erythrocyte distribution width (RBC) [Ratio] 13.4 % 11.6-14.6 [facility] Immature granulocytes/100 WBC (Bld) 0.600 % 0.0-0.9 [facility] Comment on above: IG% - Immature Granu locytes (promyelocytes, myelocytes and metamyelocytes) > 1% indicates that a LEFT SHIFT is Present. MCH (RBC) [Entitic mass] 28.8 pg 27.0-32.0 [facility] Nucleated RBC/100 WBC (Bld) [Ratio] 0 % 0-5 [facility] MCHC Auto (RBC) [Mass/Vol]Or dered By: Dr. Grimes on 10-18-2022 MCHC (RBC) [Mass/Vol] 31.1 g/dL 32-36 [facility] No Panel InformationOrdered By: Dr. Grimes on 10-18-2022 Estimated GFR (MDRD) Amer 79 mL/min >60 [facility] Comment on above: GFR Calc Estimated GFR (MDRD) Non-Af Amer 65 mL/min >60 [facility] Comment on above: Non- GFR Calc Urine Microalbumin/Creatinine Ratio 266.0 mg/g CRE <30 [facility] Vitamin D 25-Hydroxy 27.3 ng/mL [facility] Comment on above: Vitamin D 25(OH) Sta tus Range Deficiency <20 ng/mL (50nmol/L) Insufficiency 20 - 30 ng/mL (50 - 75 nmol/L) Sufficiency 30 - 100 ng/mL (75 - 250 nmol/L) Toxicity >100 ng/mL (>250 nmol/L) Platelets bldOrdered By: Dr. Grimes on 10-18-2022 Platelets (Bld) [#/Vol] 196 10*3/uL 150-450 [facility] Serum or plasma albumin lisa urement (mass/volume)Ordered By: Dr. Grimes on 10-18-2022 Albumin [Mass/Vol] 3.5 g/dL 3.2-5.0 [facility] Serum or plasma albumin/glob ulin mass ratioOrdered By: Dr. Grimes on 10-18-2022 Albumin/Globulin [Mass ratio] 1.0 {ratio} 0.9-2.4 [facility] Serum or plasma calcium lisa urement (mass/volume)Ordered By: Dr. Grimes on 10-18-2022 Calcium [Mass/Vol] 9.2 mg/dL 8.5-10.1 [facility] Serum or plasma cholesterol in HDL measurement (mass/volume)Ordered By: Dr. Grimes on 10-18-2022 Cholesterol in HDL [Mass/Vol] 56 mg/dL >40 [facility] Comment on above: The drugs N-Acetylcy steine and Metamizole may falsely depress this assay. Reference Range HDL <40 mg/dL Low HDL Cholesterol HDL >or= 60 mg/dL High HDL Cholesterol Serum or plasma cholesterol in VLDL measurement (mass/volume)Ordered By: Dr. Grimes on 10-18-2022 Cholesterol in VLDL [Mass/Vol] 49 mg/dL 5-40 [facility] Serum or plasma creatinine m easurement (mass/volume)Ordered By: Dr. Grimes on 10-18-2022 Creatinine [Mass/Vol] 0.90 mg/dL 0.55-1.02 [facility] Comment on above: The validity of the calculated GFR & GFRAA in patients over 70 years has not been determined. Clinical correlation is essential. Serum or plasma ferritin bubba surement (mass/volume)Ordered By: Dr. Grimes on 10-18-2022 Ferritin [Mass/Vol] 65 ng/mL 8-252 [facility] Serum or plasma low density lipoprotein (LDL) cholesterol measurement (mass/volume)Ordered By: Dr. Girmes on 10-18-2022 Cholesterol in LDL [Mass/Vol] 210 mg/dL 0-130 [facility] Serum or plasma urea nitroge n measurement (mass/volume)Ordered By: Dr. Grimes on 10-18-2022 Urea nitrogen [Mass/Vol] 22 mg/dL 7-18 [facility] Thin prep Papanicolaou smear with manual screeningOrdered By: Dr. Grimes on 10-18-2022 Thin prep Papanicolaou smear with manual screening 25 U/L 15-37 [facility] Thin prep Papanicolaou smear with manual screening 4 5-15 [facility] Thin prep Papanicolaou smear with manual screening 104.0 mg/L NO RANGE EST. [facility] Urine creatinine measurement (mass/volume)Ordered By: Dr. Grimes on 10-18-2022 Creatinine (U) [Mass/Vol] 39.10 mg/dL NO RANGE EST. [facility] Whole blood hemoglobin A1c/t otal hemoglobin ratio (mass fraction)Ordered By: Dr. Grimes on 10-18-2022 HbA1c (Bld) [Mass fraction] 5.6 % 3.8-5.6 [facility] Comment on above: Normal < 5.7 % Predi abetic 5.7 - 6.4 % Diabetic >or= 6.5 % Please note range changes. No Panel Informationon 04-20 Stool Pancreatic Elastase > 500 >200 [facility] Work Phone: Comment on above: Result Units: ug Estephania st./g Severe Pancreatic Insufficiency: <100 Moderate Pancreatic Insufficiency: 100 - 200 Normal: >200Performed at: [facility] - [facility] [address] [id number] Director: Javier Christie MD, Phone: [phone] Basophil percentageon 2021 Bilirubin [Mass/Vol] 0.70 mg/dL 0.20-1.00 [facility] Work Phone: Comment on above: For patients on eltr ombopag therapy, use of Dimension [place] TBIL is not recommended. Chloride [Moles/Vol] 100 mmol/L 98-107 [facility] Work Phone: Cholesterol [Mass/Vol] 286 mg/dL <200 [facility] Work Phone: Comment on above: <200 mg/dL Desirable 200-240 mg/dL Borderline >240 mg/dL High Risk Glucose [Mass/Vol] 101 mg/dL 74-106 [facility] Work Phone: Comment on above: Fasting Glucose resu lt from 100 to 125 mg/dL suggests IMPAIRED HOMEOSTASIS per A.D.A. criteria. Potassium [Moles/Vol] 3.5 mmol/L 3.5-5.1 [facility] Work Phone: Protein [Mass/Vol] 7.5 g/dL 6.4-8.2 [facility] Work Phone: Sodium [Moles/Vol] 137 mmol/L 136-145 [facility] Work Phone: Triglyceride [Mass/Vol] 202 mg/dL <199 [facility] Work Phone: Comment on above: The drugs N-Acetylcy steine and Metamizole may falsely depress this assay.Serum Triglycerides Reference Interval Normal <150 mg/dL Borderline high 150 - 199 mg/dL High 200 - 499 mg/dL Very High > or = 500 mg/dL Laboratory - Chemistry and C hemistry - challengeon 04-19-2022 Albumin [Mass/Vol] 4.0 g/dL 2.9-4.4 [facility] Work Phone: ALP [Catalytic activity/Vol] 107 U/L 45-117 [facility] Work Phone: ALT [Catalytic activity/Vol] 35 U/L 13-56 [facility] Work Phone: CO2 [Moles/Vol] 31.0 mmol/L 21.0-32.0 [facility] Work Phone: Cobalamin (Vitamin B12) [Mass/Vol] 405 pg/mL 211-911 [facility] Work Phone: Globulin (S) [Mass/Vol] 3.6 g/dL 2.2-4.2 [facility] Work Phone: Urea nitrogen/Creatinine [Mass ratio] 16.6 mg/mg 10-20 [facility] Work Phone: No Panel Informationon 04-19 Addendum Document Comment . [facility] Work Phone: Comment on above: The SPE pattern appe ars unremarkable. Evidence ofmonoclonal protein is not apparent.Performed at: [address] [id number] Director: Jorden Figueroa PhD, Phone: [phone] Mupec-5-Ixiaxwvgj 0.3 g/dL 0.0-0.4 [facility] Work Phone: Sknqh-0-Rabzvkwjc 0.8 g/dL 0.4-1.0 [facility] Work Phone: Anti-Nuclear Antibody Screen Negative Negative [facility] Work Phone: Comment on above: Performed at: - [facility] [address] [id number] Director: Jorden Figueroa PhD, Phone: [phone] Estimated GFR (MDRD) Amer 73 mL/min >60 [facility] Work Phone: Comment on above: GFR Calc Estimated GFR (MDRD) Non-Af Amer 60 mL/min >60 [facility] Work Phone: Comment on above: Non- GFR Calc Gamma Globulins 1.0 g/dL 0.4-1.8 [facility] Work Phone: Urine Microalbumin/Creatinine Ratio 94.8 mg/g CRE <30 [facility] Work Phone: Protein Fractions Elph [Inte rp]on 04-19-2022 Protein Fractions [Interp] Comment . [facility] Work Phone: Comment on above: Protein electrophore sis scan will follow via computer,mail, or tube bender hand delivery. Serum albumin to globulin ra bernard by protein electrophoresison 04-19-2022 Albumin/Globulin Elph [Mass ratio] 1.2 0.7-1.7 [facility] Work Phone: Serum globulin measurement ( mass/volume)on 04-19-2022 Globulin (S) [Mass/Vol] 3.3 g/dL 2.2-3.9 [facility] Work Phone: Serum or plasma albumin lisa urement (mass/volume)on 04-19-2022 Albumin [Mass/Vol] 3.9 g/dL 3.2-5.0 [facility] Work Phone: Serum or plasma albumin/glob ulin mass ratioon 04-19-2022 Albumin/Globulin [Mass ratio] 1.1 {ratio} 0.9-2.4 [facility] Work Phone: Serum or plasma beta globuli n measurement by electrophoresis (mass/volume)on 04-19-2022 Beta globulin Elph [Mass/Vol] 1.2 g/dL 0.7-1.3 [facility] Work Phone: Serum or plasma calcium lisa urement (mass/volume)on 04-19-2022 Calcium [Mass/Vol] 9.7 mg/dL 8.5-10.1 [facility] Work Phone: Serum or plasma cholesterol in HDL measurement (mass/volume)on 04-19-2022 Cholesterol in HDL [Mass/Vol] 59 mg/dL >40 [facility] Work Phone: Comment on above: The drugs N-Acetylcy steine and Metamizole may falsely depress this assay. Reference Range HDL <40 mg/dL Low HDL Cholesterol HDL >or= 60 mg/dL High HDL Cholesterol Serum or plasma cholesterol in VLDL measurement (mass/volume)on 04-19-2022 Cholesterol in VLDL [Mass/Vol] 40 mg/dL 5-40 [facility] Work Phone: Serum or plasma creatinine m easurement (mass/volume)on 04-19-2022 Creatinine [Mass/Vol] 0.96 mg/dL 0.55-1.02 [facility] Work Phone: Comment on above: The validity of the calculated GFR & GFRAA in patients over 70 years has not been determined. Clinical correlation is essential. Serum or plasma folate measu rement (mass/volume)on 04-19-2022 Folate [Mass/Vol] 33.60 ng/mL 3.1-55.4 [facility] Work Phone: Serum or plasma low density lipoprotein (LDL) cholesterol measurement (mass/volume)on 04-19-2022 Cholesterol in LDL [Mass/Vol] 187 mg/dL 0-130 [facility] Work Phone: Serum or plasma urea nitroge n measurement (mass/volume)on 04-19-2022 Urea nitrogen [Mass/Vol] 16 mg/dL 7-18 [facility] Work Phone: Thin prep Papanicolaou smear with manual screeningon 04-19-2022 Thin prep Papanicolaou smear with manual screening 26 U/L 15-37 [facility] Work Phone: Thin prep Papanicolaou smear with manual screening 6 5-15 [facility] Work Phone: Thin prep Papanicolaou smear with manual screening 58.4 mg/L NO RANGE EST. [facility] Work Phone: Thin prep Papanicolaou smear with manual screening See comment [facility] Work Phone: Comment on above: Result: Not Observed Total protein bloodon 2021 Protein [Mass/Vol] 7.3 g/dL 6.0-8.5 [facility] Work Phone: Urine creatinine measurement (mass/volume)on 04-19-2022 Creatinine (U) [Mass/Vol] 61.60 mg/dL NO RANGE EST. [facility] Work Phone: Otheron 12-22-2006 CONVERTED ELECTRONIC SIGNATURE FERNANDO MARLEY M.D., PATHOLOGIST (Electronic signature on file) Final Signed Out: 12/22/2006 17:10 [facility] CONVERTED FINAL DIAGNOSIS RIGHT HUMERAL HEAD, EXCISION - DEGENERATIVE ARTHRITIS. [facility] CONVERTED ORDERING PROVIDER Ordering Provider: SIXTO NELSON [facility] Vital Signs Date Time Vital Sign Value Performing Clinician Facility 04-23-2025 16:45-0400 Body temperature 98.3 [degF] Dr. Kamar Grimes MD Work Phone: [facility] 04-23-2025 16:45-0400 Diastolic blood pressure 80 mm[Hg] Dr. Kamar Grimes MD Work Phone: [facility] 04-23-2025 16:45-0400 Heart rate 96 /min Dr. Kamar Grimes MD Work Phone: [facility] 04-23-2025 16:45-0400 Inhaled oxygen flow rate 3 L/min Dr. Kamar Grimes MD Work Phone: [facility] 04-23-2025 16:45-0400 Respiratory rate 18 /min Dr. Kamar Grimes MD Work Phone: 7(623)027-707737 [place] [address] 04-23-2025 16:45-0400 SaO2% (BldA) [Mass fraction] 98 % Dr. Kamar Grimes MD Work Phone: 7(037)123-712137 [place] [address] 04-23-2025 16:45-0400 Systolic blood pressure 132 mm[Hg] Dr. Kamar Grimes MD Work Phone: 4(670)407-424337 [place] [address] 04-23-2025 03:23-0400 Body mass index (BMI) [Ratio] 36.9 kg/m2 Dr. Kamar Grimes MD Work Phone: 1(351)249-593937 [place] [address] 04-23-2025 03:23-0400 Body weight 107.[address] Kamar Grimes MD Work Phone: 8(060)954-093137 [place] [address] 04-22-2025 15:38-0400 Body height 170.[address] Kamar Grimes MD Work Phone: 5(232)661-587437 [place] [address] 04-16-2025 16:49-0400 Inhaled oxygen flow rate 2 L/min Dr. Kamar Grimes MD Work Phone: 6(252)765-283937 [place] [address] 04-16-2025 16:49-0400 SaO2% (BldA) [Mass fraction] 94 % Dr. Kamar Grimes MD Work Phone: 9(778)631-778537 [place] [address] 04-16-2025 16:00-0400 Heart rate 86 /min Dr. Kamar Grimes MD Work Phone: 4(633)123-340037 [place] [address] 04-16-2025 16:00-0400 Respiratory rate 20 /min Dr. Kamar Grimes MD Work Phone: 2(092)791-801937 [place] [address] 04-16-2025 15:27-0400 Body mass index (BMI) [Ratio] 36 kg/m2 Dr. Kamar Grimes MD Work Phone: 9(909)772-285537 [place] [address] 04-16-2025 15:27-0400 Body weight 104.[address] Kamar Grimes MD Work Phone: 6(518)680-795437 [place] [address] 04-16-2025 15:27-0400 Diastolic blood pressure 71 mm[Hg] Dr. Kamar Grimes MD Work Phone: 5(056)934-412014 [place] [address] 04-16-2025 15:27-0400 Systolic blood pressure 105 mm[Hg] Dr. Kamar Grimes MD Work Phone: 4(933)100-678337 [place] [address] 03-26-2025 14:00-0400 Diastolic blood pressure 105 mm[Hg] Dr. Kamar Grimes MD Work Phone: 4(998)924-656137 [place] [address] 03-26-2025 14:00-0400 Heart rate 96 /min Dr. Kamar Grimes MD Work Phone: 1(017)393-578037 [place] [address] 03-26-2025 14:00-0400 Inhaled oxygen flow rate 2 L/min Dr. Kamar Grimes MD Work Phone: 7(535)514-853237 [place] [address] 03-26-2025 14:00-0400 Respiratory rate 20 /min Dr. Kamar Grimes MD Work Phone: 4(338)558-033937 [place] [address] 03-26-2025 14:00-0400 SaO2% (BldA) [Mass fraction] 93 % Dr. Kamar Grimes MD Work Phone: 8(378)720-145337 [place] [address] 03-26-2025 14:00-0400 Systolic blood pressure 140 mm[Hg] Dr. Kamar Grimes MD Work Phone: 0(473)000-644837 [place] [address] 03-26-2025 09:28-0400 Body temperature 97.9 [degF] Dr. Kamar Grimes MD Work Phone: 4(076)620-085337 [place] [address] 03-26-2025 03:09-0400 Body mass index (BMI) [Ratio] 40.4 kg/m2 Dr. Kamar Grimes MD Work Phone: 8(811)433-046437 [place] [address] 03-26-2025 03:09-0400 Body weight [address] Kamar Grimes MD Work Phone: 3(438)666-235937 [place] [address] 03-24-2025 13:04-0400 Body height 170.[address] Kamar Grimes MD Work Phone: 3(868)339-926014 [place] [address] 03-20-2025 08:00-0400 Inhaled oxygen concentration 25 % Dr. Kamar Grimes MD Work Phone: 7(481)613-015937 [place] [address] 03-19-2025 06:45-0400 Diastolic blood pressure 66 mm[Hg] Dr. Kamar Grimes MD Work Phone: 1(900)803-914537 [place] [address] 03-19-2025 06:45-0400 Systolic blood pressure 90 mm[Hg] Dr. Kamar Grimes MD Work Phone: 9(345)556-610337 [place] [address] 03-19-2025 06:00-0400 Body temperature 100.1 [degF] Dr. Kamar Grimes MD Work Phone: 9(154)587-005537 [place] [address] 03-19-2025 06:00-0400 Heart rate 97 /min Dr. Kamar Grimes MD Work Phone: 6(619)289-108737 [place] [address] 03-19-2025 06:00-0400 Inhaled oxygen concentration 40 % Dr. Kamar Grimes MD Work Phone: 4(650)831-152137 [place] [address] 03-19-2025 06:00-0400 Respiratory rate 14 /min Dr. Kamar Grimes MD Work Phone: 9(969)541-389637 [place] [address] 03-19-2025 06:00-0400 SaO2% (BldA) [Mass fraction] 97 % Dr. Kamar Grimes MD Work Phone: 5(552)719-019137 [place] [address] 03-19-2025 05:06-0400 Body mass index (BMI) [Ratio] 38.6 kg/m2 Dr. Kamar Grimes MD Work Phone: 3(849)631-547537 [place] [address] 03-19-2025 05:06-0400 Body weight 111.[address] Kamar Grimes MD Work Phone: 7(109)512-928937 [place] [address] 03-18-2025 20:58-0400 Body height [address] Kamar Grimes MD Work Phone: 2(289)113-180137 [place] [address] 03-18-2025 20:09-0400 Body temperature 90.4 [degF] Dr. Kamar Grimes MD Work Phone: 7(609)336-444637 [place] [address] 03-18-2025 20:09-0400 Diastolic blood pressure 13 mm[Hg] Dr. Kamar Grimes MD Work Phone: [facility] 03-18-2025 20:09-0400 Heart rate 63 /min Dr. Kamar Grimes MD Work Phone: [facility] 03-18-2025 20:09-0400 Respiratory rate 14 /min Dr. Kamar Grimes MD Work Phone: 7(678)555-047337 [place] [address] 03-18-2025 20:09-0400 SaO2% (BldA) [Mass fraction] 95 % Dr. Kamar Grimes MD Work Phone: 6(179)065-222114 [place] [address] 03-18-2025 20:09-0400 Systolic blood pressure 32 mm[Hg] Dr. Kamar Grimes MD Work Phone: 8(161)710-016937 [place] [address] 03-18-2025 20:00-0400 Inhaled oxygen concentration 40 % Dr. Kamar Grimes MD Work Phone: 1(573)282-908137 [place] [address] 03-18-2025 17:48-0400 Inhaled oxygen flow rate 4 L/min Dr. Kamar Grimes MD Work Phone: 7(155)915-652814 [address] 03-18-2025 14:56-0400 Body height 170.[address] Kamar Grimes MD Work Phone: 4(437)682-358937 [place] [address] 03-18-2025 14:56-0400 Body mass index (BMI) [Ratio] 38.7 kg/m2 Dr. Kamar Grimes MD Work Phone: 9(384)434-525337 [place] [address] 03-18-2025 14:56-0400 Body weight 112.[address] Kamar Grimes MD Work Phone: [facility] 10-08-2024 07:58-0400 Heart rate 80 /min Dr. Kamar Grimes MD Work Phone: [facility] 10-08-2024 06:30-0400 SaO2% (BldA) [Mass fraction] 95 % Dr. Kamar Grimes MD Work Phone: 9(396)134-538914 [place] [address] 10-07-2024 21:36-0400 Diastolic blood pressure 78 mm[Hg] Dr. Kamar Grimes MD Work Phone: 0(804)695-185214 [place] [address] 10-07-2024 21:36-0400 Systolic blood pressure 147 mm[Hg] Dr. Kamar Grimes MD Work Phone: 8(762)842-647237 [place] [address] 10-07-2024 20:02-0400 Body temperature 98.2 [degF] Dr. Kamar Grimes MD Work Phone: 8(798)856-770637 [place] [address] 10-07-2024 20:02-0400 Respiratory rate 16 /min Dr. Kamar Grimes MD Work Phone: 9(324)901-373137 [place] [address] 10-02-2024 14:29-0400 Body height 170.[address] Kamar Grimes MD Work Phone: 3(645)644-785437 [place] [address] 10-02-2024 14:29-0400 Body weight 106.[address] Kamar Grimes MD Work Phone: 2(613)591-084237 [place] [address] 10-01-2024 13:00-0400 Body mass index (BMI) [Ratio] 36.8 kg/m2 Dr. Kamar Grimes MD Work Phone: 3(323)546-726637 [place] [address] 09-18-2024 08:25-0400 Heart rate 87 /min Dr. Kamar Grimes MD Work Phone: 7(829)331-232237 [place] [address] 09-18-2024 07:25-0400 Respiratory rate 14 /min Dr. Kamar Grimes MD Work Phone: 5(215)097-267037 [place] [address] 09-18-2024 07:25-0400 SaO2% (BldA) [Mass fraction] 90 % Dr. Kamar Grimes MD Work Phone: [phone] [place] [address] 09-18-2024 07:20-0400 Body temperature 97.7 [degF] Dr. Kamar Grimes MD Work Phone: [phone] [place] [address] 09-18-2024 07:20-0400 Diastolic blood pressure 87 mm[Hg] Dr. Kamar Grimes MD Work Phone: [phone] [place] [address] 09-18-2024 07:20-0400 Systolic blood pressure 160 mm[Hg] Dr. Kamar rGimes MD Work Phone: [phone] [place] [address] 09-16-2024 14:49-0400 Inhaled oxygen flow rate 2 L/min Dr. Kamar Grimes MD Work Phone: [facility] 09-13-2024 18:26-0400 Body height 170.[address] Kamar Grimes MD Work Phone: [facility] 09-13-2024 18:26-0400 Body mass index (BMI) [Ratio] 36.3 kg/m2 Dr. Kamar Grimes MD Work Phone: [facility] 09-13-2024 18:26-0400 Body weight 105.[address] Kamar Grimes MD Work Phone: [facility] 05-05-2022 15:52-0400 Body height 167.64 cm [facility] Work Phone: Encounters Encounter Date Encounter Type Care Provider Facility Start: 05-08-2025 ambulatory Katrina Gujohna OLS Facili ty:[facility] Start: 04-29-2025 ambulatory Katrina Gudla OLS Facili ty:[facility] Start: 04-24-2025 ambulatory Katrina Gudla OLS Facili ty:[facility] Start: 04-24-2025 Dr. Katrina Berkowitz MD -[facility] Start: 04-23-2025 Dr. Garfield Pierson MD -[facility] Work Phone: Start: 04-22-2025 Dr. Garfield Pierson MD -[facility] Work Phone: Start: 04-21-2025 ambulatory Sixto V Sibilia Facili ty:[facility] Start: 04-21-2025 Dr. Garfield Pierson MD -[facility] Work Phone: Start: 04-20-2025 Dr. Garfield Pierson MD -[facility] Work Phone: Start: 04-19-2025 Dr. Garfield Pierson MD -[facility] Work Phone: Start: 04-18-2025 ambulatory [facility] Start: 04-18-2025 End: 04-23-2025 Evaluation and management of inpatient Dr. Kamar Grimes MD Work Phone: -Progressive Care Unit Start: 04-18-2025 End: 04-23-2025 Dr. Garfield Pierson MD -Progressive Care U nit Work Phone: Start: 04-16-2025 End: 04-16-2025 Dr. Kamar Grimes MD -Laboratory Work Phone: Start: 04-16-2025 End: 04-16-2025 Dr. Mike Reddy MD -[facility] Work Phone: Start: 04-16-2025 End: 04-16-[address] Kamar Grimes MD Work Phone: -[facility] Start: 04-16-2025 End: 04-16-2025 ambulatory Kamar Grimes Facility:[facility] Start: 04-09-2025 End: 04-09-2025 Dr. Kamar Grimes MD -Laboratory [facility] Start: 04-09-2025 End: 04-09-2025 ambulatory Kamar Grimes Facility:[facility] Start: 03-26-2025 Dr. Karla Bustamante DO -[facility] Work Phone: Start: 03-25-2025 Dr. Karla Bustamante DO -[facility] Work Phone: Start: 03-24-2025 Dr. Karla Bustamante DO -[facility] Work Phone: Start: 03-23-2025 Dr. Otilia Hernandez MD - [facility] Work Phone: Start: 03-22-2025 Dr. Otilia Hernandez MD - [facility] Work Phone: Start: 03-21-2025 Dr. Otilia Hernandez MD - [facility] Work Phone: Start: 03-21-2025 Dr. Antwan Gardner DO -[facility] Start: 03-20-2025 Dr. Otilia Hernandez MD - [facility] Work Phone: Start: 03-20-2025 Dr. Antwan Gardner DO -[facility] Start: 03-19-2025 Dr. Otilia Hernandez MD - [facility] Work Phone: Start: 03-19-2025 ambulatory Saul Kearney Facility:[facility] Start: 03-19-2025 Dr. Saul Kearney MD -[facility] Start: 03-18-2025 Dr. Saul Kearney MD -[facility] Work Phone: Start: 03-18-2025 ambulatory Karla Bustamante Facility:[facility] Start: 03-18-2025 End: 03-26-2025 Evaluation and management of inpatient Dr. Emili Lee MD -Intensive Care Unit Work Phone: Start: 03-18-2025 End: 03-26-2025 Dr. Karla Bustamante DO -[facility] Work Phone: Start: 03-17-2025 End: 03-17-[address] Kamar Grimes MD Work Phone: -Cat Scan [facility] Start: 03-17-[address] Kamar Grimes MD -Cat Scan [facility] Work Phone: Start: 03-17-2025 End: 03-17-2025 Dr. Kamar Grimes MD -Cat Scan [facility] Work Phone: Start: 03-17-2025 End: 03-17-2025 ambulatory Kamar Grimes Facility:[facility] Start: 03-10-2025 End: 03-10-[address] Kamar Grimes MD Work Phone: -Laboratory [place] Start: 03-10-2025 End: 03-10-[address] Kamar Grimes MD -Labor[facility] [place] Work Phone: Start: 03-10-2025 End: 03-10-2025 Dr. Kamar Grimes MD -Laboratory [place] Work Phone: Start: 03-10-2025 End: 03-10-2025 ambulatory [facility] Facility:[facility] Start: 03-04-2025 Non-patient / Non-visit Dr. Carlene greco MD -[facility] Start: 03-04-2025 End: 03-04-[address] Kamar Grimes MD Work Phone: -Cardiovascular Services Start: 03-04-2025 End: 03-04-[address] Kamar Grimes MD -Cardiovascular Services Work Phone: Start: 03-04-2025 End: 03-04-2025 Dr. Carlene Salazar MD -[facility] Start: 03-04-2025 End: 03-04-2025 ambulatory [facility] Facility:[facility] Start: 02-10-2025 End: 02-10-[address] Kamar Grimes MD Work Phone: -Laboratory [facility] Start: 02-10-2025 End: 02-10-[address] Kamar Grimes MD -Laboratory [place] Work Phone: Start: 02-10-2025 End: 02-10-2025 Dr. Kamar Grimes MD -Laboratory [place] Work Phone: Start: 02-10-2025 End: 02-10-2025 ambulatory [facility] Facility:[facility] Start: 10-01-2024 ambulatory [facility] Facility :[facility] Start: 09-18-2024 End: 10-08-2024 Evaluation and management of inpatient Dr. Rodrigo Sanches MD -Transitional Care Unit Start: 09-18-2024 Encounter for other preprocedural examination Jamie [facility] Start: 09-18-2024 Non-patient / Non-visit Dr. Mikel Jiang [facility] Work Phone: Start: 09-17-2024 Non-patient / Non-visit Dr. Mikel Jaing [facility] Work Phone: Start: 09-16-2024 Non-patient / Non-visit Dr. Mikel Jiang [facility] Work Phone: Start: 09-15-2024 Non-patient / Non-visit Dr. Emili mora MD -[facility] Work Phone: Start: 09-14-2024 ambulatory Kamar Beverly [facility] Start: 09-14-2024 End: 09-18-2024 Evaluation and management of inpatient Dr. Fahad Cavanaugh MD -[facility] 3 Work Phone: Start: 09-14-2024 Non-patient / Non-visit Dr. Emili mora MD -[facility] Work Phone: Start: 09-13-2024 Non-patient / Non-visit Dr. Cynthia Garcia [facility] Work Phone: Start: 09-13-[facility]24 [facility] Start: 09-12-2024 End: 09-12-2024 ambulatory [facility] Facility:[facility] Start: 09-12-2024 End: 09-12-2024 Non-patient / Non-visit Dr. Tejal Holly MD -[facility] Work Phone: Start: 09-10-2024 End: 09-10-2024 ambulatory [facility] Start: 10-19-2023 End: 10-19-2023 ambulatory [facility] Work Phone: Start: 10-19-2023 End: 10-19-2023 Patient encounter procedure [facility] Start: 10-18-2022 End: 10-18-2022 ambulatory [facility] Work Phone: Start: 10-18-2022 End: 10-18-2022 Patient encounter procedure [facility] Start: 05-05-2022 End: 05-05-2022 ambulatory [facility] Work Phone: Start: 05-05-2022 End: 05-05-2022 Patient encounter procedure [facility]-Outpatient Bone Densitometry Start: 04-20-2022 End: 04-20-2022 ambulatory [facility] Work Phone: Start: 04-20-2022 End: 04-20-2022 Patient encounter procedure [facility]-Laboratory, Specimen Start: 04-19-2022 End: 04-19-2022 ambulatory [facility] Work Phone: Start: 04-19-2022 End: 04-19-2022 Patient encounter procedure [facility]-Laboratory, [facility] Start: 11-25-2021 End: 11-25-2021 Discharged Recurring [facility]-Physical Therapy Start: 12-18-2006 End: 12-18-2006 Patient encounter procedure Sixto Nelson Work Phone: [facility] Start: 12-18-2006 Results Only Sixto Brock julian Work Phone: [facility] Procedures Date Procedure Procedure Detail Performing Clinician Start: 05-08-2025 Mean corpuscular hem oglobin concentration determination Dr. Kamar Grimes MD Work Phone: Start: 05-08-2025 Platelet mean volume determination Dr. Kamar Grimes MD Work Phone: Start: 04-29-2025 Mean corpuscular hem oglobin concentration determination Dr. Kamar Grimes MD Work Phone: Start: 04-29-2025 Platelet mean volume determination Dr. Kamar Grimes MD Work Phone: Start: 04-29-2025 Vitamin D, 25-hydrox y measurement Dr. Kamar Grimes MD Work Phone: Start: 04-24-2025 Mean corpuscular hem oglobin concentration determination Dr. Kamar Grimes MD Work Phone: Start: 04-24-2025 Platelet mean volume determination Dr. Kamar Grimes MD Work Phone: Start: 04-22-[address] Kamar Grimes MD Work Phone: Start: 04-22-2025 Mean corpuscular hem oglobin concentration determination Dr. Kamar Grimes MD Work Phone: Start: 04-22-[address] Jennifer Grimes MD Work Phone: Start: 04-22-2025 Nucleated red blood cell count procedure Dr. Kamar Grimes MD Work Phone: Start: 04-22-2025 Platelet mean volume determination Dr. Kamar Grimes MD Work Phone: Start: 04-20-2025 Legionella pneumophi la antigen assay Dr. Kamar Grimes MD Work Phone: Start: 04-20-[address] Kamar Grimes MD Work Phone: Start: 04-20-2025 Benzodiazepine measu rement, urine Dr. Kamar Grimes MD Work Phone: Start: 04-20-2025 Cocaine measurement, urine Dr. Kamar Grimes MD Work Phone: Start: 04-20-2025 Methadone measuremen t, urine Dr. Kamar Grimes MD Work Phone: Start: 04-20-2025 End: 04-20-2025 Streptococcus pneumoniae antigen assay Dr. Kamar Grimes MD Work Phone: Start: 04-20-[address] Kamar Grimes MD Work Phone: Start: 04-20-2025 Urine microscopy: red cells Dr. Kamar Grimes MD Work Phone: Start: 04-20-[address] Kamar Grimes MD Work Phone: Start: 04-20-2025 Urnls dip stick/tabl et reagent auto microscopy Dr. Kamar Grimes MD Work Phone: Start: 04-19-[address] Kamar Grimes MD Work Phone: Start: 04-19-2025 Venous oxygen satura tion measurement Dr. Kamar Grimes MD Work Phone: Start: 04-19-[address] Kamar Grimes MD Work Phone: Start: 04-19-2025 Plain chest X-ray Dr. Nitesh Grimes MD Work Phone: Start: 04-19-2025 Bacterial nucleic ac id assay Dr. Kamar Grimes MD Work Phone: Start: 04-19-[address] Kamar Grimes MD Work Phone: Start: 04-19-2025 Dr. Kamar hansen MD Work Phone: Start: 04-19-2025 Osmolality measureme nt, serum Dr. Kamar Grimes MD Work Phone: Start: 04-19-2025 Total cholesterol:HD L ratio measurement Dr. Kamar Grimes MD Work Phone: Start: 04-19-[address] Kamar Grimes MD Work Phone: Start: 04-16-2025 Osmolality measureme nt, serum Dr. Kamar Grimes MD Work Phone: Start: 04-09-2025 Mean corpuscular hem oglobin concentration determination Dr. Kamar Grimes MD Work Phone: Start: 04-09-[address] Jennifer Grimes MD Work Phone: Start: 04-09-2025 Nucleated red blood cell count procedure Dr. Kamar Grimes MD Work Phone: Start: 04-09-2025 Platelet mean volume determination Dr. Kamar Grimes MD Work Phone: Start: 03-26-2025 Blood count smear mc rscp w/mnl difrntl wbc count Dr. Kamar Grimes MD Work Phone: Start: 03-26-[address] Kamar Grimes MD Work Phone: Start: 03-26-2025 Mean corpuscular hem oglobin concentration determination Dr. Kamar Grimes MD Work Phone: Start: 03-26-[address] Jennifer Grimes MD Work Phone: Start: 03-26-2025 Nucleated red blood cell count procedure Dr. Kamar Grimes MD Work Phone: Start: 03-26-2025 Platelet mean volume determination Dr. Kamar Grimes MD Work Phone: Start: 03-20-2025 CT of upper limb wit hout contrast Dr. Kamar Grimes MD Work Phone: Start: 03-19-2025 Measurement of occul t blood in gastric fluid specimen Dr. Kamar Grimes MD Work Phone: Start: 03-19-[address] Jennifer Grimes MD Work Phone: Start: 03-19-[address] Kamar Grimes MD Work Phone: Start: 03-19-2025 Carbon dioxide measu rement, partial pressure Dr. Kamar Grimes MD Work Phone: Start: 03-19-2025 Gases blood o2 satur ation only direct lisa Dr. Kamar Grimes MD Work Phone: Start: 03-19-2025 Measurement of parti al pressure of oxygen in blood Dr. Kamar Grimes MD Work Phone: Start: 03-19-[address] Kamar Grimes MD Work Phone: Start: 03-19-[address] Kamar Grimes MD Work Phone: Start: 03-19-2025 Plain X-ray of shoulder Dr. Kamar Grimes MD Work Phone: Start: 03-19-[address] Kamar Grimes MD Work Phone: Start: 03-18-2025 Plain chest X-ray Dr. Nitesh Grimes MD Work Phone: Start: 03-18-2025 Computed tomography of abdomen and pelvis with contrast Dr. Kamar Grimes MD Work Phone: Start: 03-18-2025 Carbon dioxide measu rement, partial pressure Dr. Kamar Grimes MD Work Phone: Start: 03-18-2025 Gases blood o2 satur ation only direct lisa Dr. Kamar Grimes MD Work Phone: Start: 03-18-2025 Measurement of parti al pressure of oxygen in blood Dr. Kamar Grimes MD Work Phone: Start: 03-18-[address] Kamar Grimes MD Work Phone: Start: 03-18-2025 Plain X-ray abdomen Dr. Kamar Grimes MD Work Phone: Start: 03-18-2025 Plain chest X-ray Dr. Nitesh Grimes MD Work Phone: Start: 03-18-2025 X-ray of chest, PA a nd lateral views Dr. Kamar Grimes MD Work Phone: Start: 03-18-2025 CT of head without contrast Dr. Kamar Grimes MD Work Phone: Start: 03-18-2025 Urine microscopy: red cells Dr. Kamar Grimes MD Work Phone: Start: 03-18-2025 Urnls dip stick/tabl et reagent auto microscopy Dr. Kamar Grimes MD Work Phone: Start: 03-18-2025 Calculation of international normalized ratio Dr. Kamar Grimes MD Work Phone: Start: 03-18-[address] Kamar Grimes MD Work Phone: Start: 03-18-[address] Kamar Grimes MD Work Phone: Start: 03-18-2025 Gram stain microscopy Alon Grimes MD Work Phone: Start: 03-18-[address] Kamar Grimes MD Work Phone: Start: 03-18-2025 Respiratory micro[address] l culture Dr. Kamar Grimes MD Work Phone: Start: 03-18-[address] Kamar Grimes MD Work Phone: Start: 03-18-[address] Kamar Grimes MD Work Phone: Start: 03-18-[address] Kamar Grimes MD Work Phone: Start: 03-18-2025 Chloride measurement, urine Dr. Kamar Grimes MD Work Phone: Start: 03-18-2025 Urea nitrogen measur ement, urine Dr. Kamar Grimes MD Work Phone: Start: 03-17-2025 CT of thorax, abdome n and pelvis with contrast Dr. Kamar Grimes MD Work Phone: Start: 02-10-2025 Blood count smear mc rscp w/mnl difrntl wbc count Dr. Kamar Grimes MD Work Phone: Start: 02-10-2025 Mean corpuscular hem oglobin concentration determination Dr. Kamar Grimes MD Work Phone: Start: 02-10-[address] Jennifer Grimes MD Work Phone: Start: 02-10-2025 Nucleated red blood cell count procedure Dr. Kamar Grimes MD Work Phone: Start: 02-10-2025 Platelet mean volume determination Dr. Kamar Grimes MD Work Phone: Start: 02-10-2025 X-ray of chest, PA a nd lateral views Dr. Kamar Grimes MD Work Phone: Start: 09-17-2024 Clostridium difficil e detection Dr. Kamar Grimes MD Work Phone: Start: 09-15-[address] Kamar Grimes MD Work Phone: Start: 09-15-2024 Sars-cov-2 Dr. Kamar hansen MD Work Phone: Start: 09-15-2024 SARS-CoV-2, Influenz a & RSV (PCR) Dr. Kamar Grimes MD Work Phone: Start: 09-15-2024 X-ray of chest, PA a nd lateral views Dr. Kamar Grimes MD Work Phone: Start: 09-13-2024 Plain X-ray of shoulder Dr. Kamar Grimes MD Work Phone: Start: 09-13-[address] Kamar Grimes MD Work Phone: Start: 09-13-[address] Kamar Grimes MD Work Phone: Start: 09-13-2024 Gram stain microscopy D marilia Grimes MD Work Phone: Start: 09-13-2024 Microbial culture, routine Dr. Kamar Grimes MD Work Phone: Start: 09-13-2024 Revision of shoulder arthroplasty Dr. Kamar Grimes MD Work Phone: Start: 09-12-2024 Methicillin resistan t Staphylococcus aureus screening test Dr. Kamar Grimes MD Work Phone: Start: 09-11-[address] Kamar Grimes MD Work Phone: Start: 09-11-2024 Gram stain microscopy Alon Grimes MD Work Phone: Start: 09-11-2024 Microbial culture, b roman fluid Dr. Kamar Grimes MD Work Phone: Start: 05-05-2022 Dual energy X-ray absorptiometry Start: 05-05-2022 Screening mammography Start: 01-27-2016 Colonoscopy Sixto izquierdo Start: 12-18-2006 CONVERTED SURGICAL PATHOLOGY Sixto Casasy Leslie Work Phone: Start: 04-11-2006 Mammography Sixto izquierdo Plan of Treatment Date Care Activity Detail Author Start: 01-26-2026 Colonoscopy COLONOSCOPY [facility] Start: 05-08-2025 -[facility] Start: 04-29-2025 -[facility] Start: 04-24-2025 -[facility] Start: 04-23-2025 -[facility] Work Phone: Start: 04-23-2025 Patient discharge [facility] Start: 04-22-2025 -[facility] Work Phone: Start: 04-22-2025 Referral to service [facility] Start: 04-21-2025 -[facility] Work Phone: Start: 04-20-2025 Legionella pneumophila antigen assay [facility] Start: 04-20-2025 Streptococcus pneumoniae antigen assay [facility] Start: 04-20-2025 Urine culture [facility] Start: 04-20-2025 -[facility] Work Phone: Start: 04-19-2025 Following clinical pathway protocol [facility] Start: 04-19-2025 Referral to service [facility] Start: 04-19-2025 Catheterization of vein [facility] Start: 04-19-2025 Insertion of catheter into peripheral vein [facility] Start: 04-19-2025 Measuring intake and output [facility] Start: 04-19-2025 Providing care according to standard [facility] Start: 04-19-2025 Vital signs measurements [facility] Start: 04-19-2025 [facility] Start: 04-19-2025 Plain chest X-ray [facility] Start: 04-19-2025 Consultation [facility] Start: 04-19-2025 Bacterial nucleic acid assay [facility] Start: 04-19-2025 Blood culture [facility] Start: 04-19-2025 -[facility] Work Phone: Start: 04-19-2025 Following clinical pathway protocol [facility] Start: 04-18-2025 Referral to pillowcase turner [facility] Start: 04-18-2025 Ambulation without limitation [facility] Start: 04-18-2025 Assessment of risk of venous thromboembolism [facility] Start: 04-18-2025 Insertion of catheter into peripheral vein [facility] Start: 04-18-2025 Measuring intake and output [facility] Start: 04-18-2025 Oxygen therapy [facility] Start: 04-18-2025 Providing care according to standard [facility] Start: 04-18-2025 Referral for physical therapy [facility] Start: 04-18-2025 Referral to occupational therapist [facility] Start: 04-18-2025 Referral to service [facility] Start: 04-18-2025 [facility] Start: 04-18-2025 Admission procedure [facility] Start: 04-18-2025 End: 04-23-2025 -Progressive Care Unit Work Phone: Start: 04-18-2025 Patient referral to dietitian [facility] Start: 04-16-2025 End: 04-16-2025 Evaluation of diagnostic study results [facility] Start: 03-26-2025 [facility] Start: 03-26-2025 Patient discharge [facility] Start: 03-26-2025 Referral to service [facility] Start: 03-25-2025 -[facility] Work Phone: Start: 03-22-2025 Care planning and problem solving actions [facility] Start: 03-22-2025 [facility] Start: 03-20-2025 End: 03-21-2025 [facility] Start: 03-20-2025 Oxygen therapy [facility] Start: 03-20-2025 [facility] Start: 03-19-2025 Airway suction technique [facility] Start: 03-19-2025 Respiratory therapy [facility] Start: 03-19-2025 Consultation [facility] Start: 03-19-2025 Referral for physical therapy [facility] Start: 03-19-2025 Referral to occupational therapist [facility] Start: 03-19-2025 Weaning from mechanically assisted ventilation [facility] Start: 03-19-2025 Consultation for treatment [facility] Start: 03-18-2025 Creatine kinase [Enzymatic activity/volume] in Serum or Plasma [facility] Start: 03-18-2025 Triglycerides measurement [facility] Start: 03-18-2025 Airway suction technique [facility] Start: 03-18-2025 Following clinical pathway protocol [facility] Start: 03-18-2025 Maintenance of invasive device [facility] Start: 03-18-2025 Assessment of risk of venous thromboembolism [facility] Start: 03-18-2025 Catheterization of vein [facility] Start: 03-18-2025 Consultation [facility] Start: 03-18-2025 Continuous pulse oximetry [facility] Start: 03-18-2025 Creatinine [Mass/volume] in Urine collected for unspecified duration [facility] Start: 03-18-2025 Determination of Giang Agitation Sedation Scale (RASS) score with assessment for d [facility] Start: 03-18-2025 Electrolytes measurement, urine [facility] Start: 03-18-2025 Elevation of head of bed [facility] Start: 03-18-2025 Inhalation therapy procedure [facility] Start: 03-18-2025 Insertion of catheter into peripheral vein [facility] Start: 03-18-2025 Measuring intake and output [facility] Start: 03-18-2025 Mouth care [facility] Start: 03-18-2025 Notification of physician [facility] Start: 03-18-2025 Osmolality of Urine [facility] Start: 03-18-2025 Providing care according to standard [facility] Start: 03-18-2025 Referral to service [facility] Start: 03-18-2025 Respiratory pathogens DNA and RNA panel - Respiratory specimen by RANJIT with probe detection [facility] Start: 03-18-2025 Taking nasal swab [facility] Start: 03-18-2025 Tracheostomy care [facility] Start: 03-18-2025 Trial for daily interruption of sedation during mechanically assisted ventilation [facility] Start: 03-18-2025 Urea nitrogen measurement, urine [facility] Start: 03-18-2025 Vital signs measurements [facility] Start: 03-18-2025 [facility] Start: 03-18-2025 Airway suction technique [facility] Start: 03-18-2025 Respiratory therapy [facility] Start: 03-18-2025 Verification routine [facility] Start: 03-18-2025 Admission procedure [facility] Start: 03-18-2025 End: 03-26-2025 -Progressive Care Unit Work Phone: Start: 03-18-2025 End: 03-19-2025 [facility] Start: 03-18-2025 Bacteria identified in Blood by Culture Blood Culture [facility] Start: 03-18-2025 Bacteria identified in Urine by Culture Urine Culture [facility] Start: 03-18-2025 Microscopic observation [Identifier] in Unspecified specimen by Gram stain [facility] Start: 03-18-2025 Respiratory Culture Respiratory Culture [facility] Start: 03-18-2025 Electrolytes measurement, urine [facility] Start: 03-18-2025 Urea nitrogen measurement, urine [facility] Start: 03-18-2025 Consultation [facility] Start: 03-18-2025 Patient referral to [facility] Start: 03-18-2025 [facility] Start: 10-08-2024 Patient discharge [facility] Start: 10-07-2024 [facility] Start: 09-30-2024 Referral to service [facility] Start: 09-27-2024 End: 09-27-2024 [facility] Start: 09-27-2024 [facility] Start: 09-24-2024 [facility] Start: 09-19-2024 Development of care plan [facility] Start: 09-19-2024 Developing a treatment plan [facility] Start: 09-19-2024 Following clinical pathway protocol [facility] Start: 09-19-2024 Peripherally inserted central catheter care [facility] Start: 09-18-2024 Consultation [facility] Start: 09-18-2024 Peripherally inserted central catheter care [facility] Start: 09-18-2024 Contact precautions [facility] Start: 09-18-2024 [facility] Start: 09-18-2024 Contact precautions [facility] Start: 09-18-2024 Provision of activity privileges [facility] Start: 09-18-2024 Wound care [facility] Start: 09-18-2024 Admission procedure [facility] Start: 09-18-2024 Introduction of urinary catheter [facility] Start: 09-18-2024 Measuring intake and output [facility] Start: 09-18-2024 Patient referral to dietitian [facility] Start: 09-18-2024 Referral to occupational therapist [facility] Start: 09-18-2024 Referral to service [facility] Start: 09-18-2024 Vital signs measurements [facility] Start: 09-18-2024 End: 09-18-2024 [facility] Start: 09-18-2024 Application of device [facility] Start: 09-18-2024 Patient discharge [facility] Start: 09-18-2024 [facility] Start: 09-16-2024 Consultation [facility] Start: 09-15-2024 Referral to service [facility] Start: 09-14-2024 Oxygen therapy [facility] Start: 09-14-2024 Referral to service [facility] Start: 09-14-2024 Admission procedure [facility] Start: 09-14-2024 Inhalation therapy procedure [facility] Start: 09-13-2024 Application of intermittent pneumatic compression device [facility] Start: 09-13-2024 Following clinical pathway protocol [facility] Start: 09-13-2024 Recommendation to continue with treatment [facility] Start: 09-13-2024 Ambulation therapy management [facility] Start: 09-13-2024 Application of device [facility] Start: 09-13-2024 Assessment of risk of venous thromboembolism [facility] Start: 09-13-2024 Catheterization of vein [facility] Start: 09-13-2024 Following clinical pathway protocol [facility] Start: 09-13-2024 Introduction of urinary catheter [facility] Start: 09-13-2024 Measuring intake and output [facility] Start: 09-13-2024 Neurovascular assessment [facility] Start: 09-13-2024 Patient education [facility] Start: 09-13-2024 Procedure discontinued [facility] Start: 09-13-2024 Provision of activity privileges [facility] Start: 09-13-2024 Referral to occupational therapist [facility] Start: 09-13-2024 Vital signs measurements [facility] Start: 09-13-2024 Wound care [facility] Start: 09-13-2024 [facility] Start: 09-13-2024 Admission procedure [facility] Start: 09-13-2024 Consultation [facility] Start: 09-13-2024 [facility] Start: 09-13-2024 Acid Fast Bacilli Culture Acid Fast Bacilli Culture [facility] Start: 09-13-2024 Acid Fast Bacilli Smear Acid Fast Bacilli Smear [facility] Start: 09-13-2024 Blood culture Blood Culture [facility] Start: 09-13-2024 Fungal Culture Fungal Culture [facility] Start: 09-13-2024 Fungal Smear Fungal Smear [facility] Start: 09-13-2024 Acid fast bacilli culture [facility] Start: 09-13-2024 Medication education [facility] Start: 09-13-2024 Mycology culture [facility] Start: 09-11-2024 Acid Fast Bacilli Culture Acid Fast Bacilli Culture [facility] Start: 09-11-2024 Acid Fast Bacilli Smear Acid Fast Bacilli Smear [facility] Start: 09-11-2024 Fungal Culture Fungal Culture [facility] Start: 09-11-2024 Acid fast bacilli culture [facility] Start: 03-03-2020 Influenza vaccination INFLUENZA (#1) [facility] Start: 2014 ADVANCE DIRECTIVE DISCUSSION ADVANCE DIRECTIVE DISCUSSION [facility] Start: 2014 BONE DENSITY BONE DENSITY [facility] Start: 2014 PNEUMOVAX AGE 65 AND OVER WITH 5YR LOOKBACK (#1) PNEUMOVAX AGE 65 AND OVER WITH 5YR LOOKBACK (#1) [facility] Start: 09-17-2009 LIPID SCREEN LIPID SCREEN [facility] Start: 08-25-2009 DIABETES SCREEN DIABETES SCREEN [facility] Start: 04-11-2007 Mammography MAMMOGRAM [facility] Start: 1999 SHINGRIX VACCINE (1 of 2) SHINGRIX VACCINE (1 of 2) [facility] Start: 01-10-1968 Urine microalbumin profile DTAP,TDAP,TD (1 - Tdap) [facility] Start: 1967 ANNUAL PCP TEAM CHRONIC DISEASE VISIT ANNUAL PCP TEAM CHRONIC DISEASE VISIT [facility] Start: 1967 BP CONTROLLED (<130/80) BP CONTROLLED (<130/80) [facility] Start: 1967 HEPATITIS C SCREENING HEPATITIS C SCREENING [facility] Acid fast bacilli culture [facility] Alanine aminotransfe rase [Enzymatic activity/volume] in Serum or Plasma [facility] Albumin [Mass/volume ] in Serum or Plasma [facility] Alkaline phosphatase [Enzymatic activity/volume] in Serum or Plasma [facility] Anion gap in Serum o r Plasma [facility] Bacteria identified in Sputum by Respiratory culture [facility] Bilirubin, total measurement [facility] BUN/Creatinine ratio [facility] Calcium [Mass/volume ] in Serum or Plasma [facility] Carbon dioxide, tota l [Moles/volume] in Central venous blood [facility] Creatinine [Mass/vol ume] in Serum or Plasma [facility] Erythrocyte mean corpuscular volume determination [facility] Erythrocyte sediment ation rate [facility] Fungus identified in Unspecified specimen by Culture [facility] Fungus identified in Unspecified specimen by Fungus stain [facility] Glucose [Mass/volume ] in Serum or Plasma [facility] Hematocrit [Volume Fraction] of Blood [facility] Hemoglobin [Mass/vol ume] in Blood [facility] Leukocytes [#/volume ] in Blood [facility] Mean corpuscular hem oglobin concentration determination [facility] Mean corpuscular hem oglobin determination [facility] Measurement of renal function [facility] Mycobacterium sp geoff ntified in Unspecified specimen by Organism specific culture [facility] Natriuretic peptide. B prohormone N-Terminal [Mass/volume] in Serum or Plasma [facility] Neutrophil count [facility] Neutrophil percent differential count [facility] Osmolality of Urine [facility] Patient Education PICC PICC [facility] Dressing Dc Caring for Your PICC Dc PICC Line Flushing Home Ch Flushing Your PICC Line at Home ED PICC Line Care [facility] Work Phone: Patient referral [facility] Work Phone: Platelets [#/volume] in Blood [facility] Potassium measurement [facility] Red blood cell count [facility] Red cell distributio n width determination [facility] Serum chloride measurement [facility] Sodium measurement [facility] Total protein measurement [facility] Urea nitrogen [Mass/ volume] in Serum or Plasma [facility] Urine culture [facility] Heart limited [facility] Vancomycin [Mass/vol ume] in Serum or Plasma --trough [facility] Immunizations Immunization Date Immunization Notes Care Provider It[facility] 04-16-2020 Influenza virus vaccine [facility] 04-16-2020 Dr. Kamar Grimes MD Work Phone: [facility] 08-09-2018 pneumococcal polysaccharide vaccine, [address] Kamar Grimes MD Work Phone: [facility] 04-26-2017 influenza, injectabl e, quadrivalent, preservative free [facility] 04-26-2017 influenza, seasonal, injectable [facility] 12-02-2015 pneumococcal conjuga te vaccine, [address] Kamar Grimes MD Work Phone: [facility] Payers Date Payer Category Payer Medicaid [id number] 2024 Self-pay [id number] 2024 Unknown [id number] 1950 Unknown [id number] 2.16840.1.287351.3.579.2.6 51 1950 Unknown [id number] 2.16840.1.016839.3.579.2.6 27 Medicaid [id number] Medicare [id number] Private Health Insurance [id number] Unknown [id number] Unknown [id number] Unknown [facility] O [id number] Unknown [id number] 2.16.840.1.951084.3.579.2.4 62 Unknown [id number] 2.16840.1.533358.3.579.2.4 62 Unknown [id number] 2.16.840.1.371143.3.579.2.4 62 Unknown [id number] 2.16.840.1.608337.3.579.2.4 62 Unknown [id number] 2.16.840.1.746983.3.579.2.4 62 Unknown [id number] 2.16.840.1.728240.3.579.2.4 62 Unknown [id number] 2.16.840.1.567848.3.579.2.4 62 Unknown [id number] 2.16.840.1.853788.3.579.2.4 62 Unknown [id number] 2.16.840.1.439505.3.579.2.4 62 Unknown [id number] 2.16.840.1.768921.3.579.2.4 62 Unknown [id number] 2.16.840.1.185571.3.579.2.4 62 Unknown [id number] 2.16.840.1.449332.3.579.2.4 62 Unknown [id number] 2.16.840.1.029614.3.579.2.4 62 Unknown [id number] 2.16.840.1.299139.3.579.2.4 62 Unknown [id number] 2.16.840.1.445519.3.579.2.4 62 Unknown [id number] 2.16.840.1.967270.3.579.2.4 62 Unknown [id number] 2.16.840.1.305409.3.579.2.4 62 Unknown [id number] 2.16.840.1.765587.3.579.2.4 62 Unknown [id number] 2.16.840.1.057307.3.579.2.4 62 Unknown [id number] 2.16.840.1.875643.3.579.2.4 62 Unknown [id number] 2.16.840.1.239333.3.579.2.4 62 Unknown [id number] 2.16.840.1.131392.3.579.2.4 62 Unknown [id number] 2.16.840.1.300465.3.579.2.4 62 Unknown [id number] 2.16.840.1.406877.3.579.2.4 62 Unknown [id number] 2.16.840.1.430565.3.579.2.4 62 Unknown [id number] 2.16.840.1.719960.3.579.2.4 62 Unknown [id number] 2.16.840.1.577070.3.579.2.4 62 Unknown [id number] 2.16.840.1.599507.3.579.2.4 62 Unknown [id number] 2.16.840.1.675000.3.579.2.4 62 Unknown [id number] 2.16.840.1.493635.3.579.2.4 62 Unknown [id number] 2.16.840.1.837480.3.579.2.4 62 Unknown [id number] 2.16.840.1.486530.3.579.2.4 62 Unknown [id number] 2.16.840.1.594492.3.579.2.4 62 Unknown [id number] 2.16.840.1.813853.3.579.2.4 62 Unknown [id number] 2.16.840.1.014643.3.579.2.4 62 Unknown [id number] 2.16.840.1.118000.3.579.2.4 62 Unknown [id number] 2.16.840.1.675071.3.579.2.4 62 Unknown [id number] 2.16.840.1.706760.3.579.2.4 62 Unknown [id number] 2.16.840.1.286073.3.579.2.4 62 Unknown [id number] 2.16.840.1.880762.3.579.2.4 62 Unknown [id number] 2.16.840.1.643133.3.579.2.4 62 Unknown [id number] 2.16.840.1.743887.3.579.2.4 62 Unknown [id number] 2.16.840.1.866388.3.579.2.4 62 Social History Date Type Detail Facility Start: 06-12-2006 End: 04-18-2025 Tobacco smoking status NHIS Former smoker [facility] Start: 06-12-2006 Alcohol intake Current non-dr creel hand of alcohol (finding) [facility] Sex Assigned At Not on file [facility] Start: 06-11-2020 End: 06-11-2020 Tobacco smoking status NJIS Unknown if ever smoked [facility] Start: 06-11-2020 Non-smoker [facility] Start: 1950 Sex Assigned At Female [facility] Start: 09-18-2024 End: 10-08-2024 Sex Female (finding) [facility] Sex [facility] NEGATED: Highlighted row Not [facility] Medical Equipment Procedure Code Equipment Code [...] Revision of shoulder arthroplasty FDA Start: 09-13-2024 Minimally invasive total replacement [...] replacement of hip joint by anterior approach FDA Start: 06-24-2020 Minimally invasive total replacement of hip joint by anterior approach FDA Start: 06-24-2020 Minimally invasive total replacement of hip joint by anterior approach FDA Start: 06-24-2020 Minimally invasive total replacement of hip joint by anterior approach FDA Start: 06-24-2020 Minimally invasive total replacement of hip joint by anterior approach FDA Start: 06-24-2020 Minimally invasive total replacement of hip joint by anterior approach FDA Start: 06-24-2020 Minimally invasive total replacement of hip joint by anterior approach FDA Start: 06-24-2020 Minimally invasive total replacement of hip joint by anterior approach FDA Start: 06-24-2020 Minimally invasive total replacement of hip joint by anterior approach FDA Start: 06-24-2020 Minimally invasive total replacement of hip joint by anterior approach FDA Start: 06-24-2020 Minimally invasive total replacement of hip joint by anterior approach FDA Start: 06-24-2020 Minimally invasive total replacement of hip joint by anterior approach FDA Start: 06-24-2020 Minimally invasive total replacement of hip joint by anterior approach FDA Start: 06-24-2020 Minimally invasive total replacement of hip joint by anterior approach FDA Start: 06-24-2020 Minimally invasive total replacement of hip joint by anterior approach FDA Start: 06-24-2020 Minimally invasive total replacement of hip joint by anterior approach FDA Start: 06-24-2020 Minimally invasive total replacement of hip joint by anterior approach FDA Start: 06-24-2020 Minimally invasive total replacement of hip joint by anterior approach FDA Start: 06-24-2020 Minimally invasive total replacement of hip joint by anterior approach FDA Start: 06-24-2020 Minimally invasive total replacement of hip joint by anterior approach FDA Start: 06-24-2020 Goals Date Patient Goal Desired Activity /State Functional Status Date Assessment Result Facility 04-23-2025 Functional status Independent [facility] Work Phone: 04-22-2025 Functional status Ambulates [facility] Work Phone: 03-26-2025 Functional status Bathroom Privilege [facility] Work Phone: 03-19-2025 Functional status Bedrest [facility] Work Phone: 10-08-2024 Functional status Ambulates;Up a d shanna;Bathroom Privilege;Back to bed [facility] Work Phone: 09-18-2024 Functional status Ambulates;Ricky r;Bathroom Privilege [facility] Work Phone: 09-17-2024 Functional status Tolerates Activity Well [facility] Work Phone: Mental Status Date Assessment Result Facility 04-23-2025 Cognitive function Voice/Name [facility] Work Phone: 03-26-2025 Cognitive function Voice/Name [facility] Work Phone: 03-19-2025 Cognitive function Voice/Name [facility] Work Phone: 10-08-2024 Cognitive function Voice/Name [facility] Work Phone: 10-05-2024 Cognitive function Appropriate;Cooperativ e [facility] Work Phone: 09-18-2024 Cognitive function Voice/Name [facility] Work Phone: Clinical Notes 09-13-2024 to 04-23-2025 Note Date & Type Note Facility 04-23-2025 Discharge summary Note Date/Time April 23, 2025 6:11pm [facility] Medical Records Department [address] [place] [id number] Discharge Summary 04/23/25 1708 MR#: [id number] Acct: [id number] Name: OSCAR WOO Rep #:[id number] : 1950 75 From: [facility] PCP: Dr. Kamar Grimes MD Status:ADM IN Location: [place] [address] Providers Date of Admission: 04/18/25 Date of Discharge: 04/23/25 Primary Care Physician: Dr. Kamar Grimes MD Consultations 04/18/25 22:05 Consult: Nephrology Routine Consulting Provider: Keya Basilio Reason for Consult: worsening hyponatremia, severe hypochloremia, ELVIA EMERGENT Consult: No MD Notified: Yes Date Notified: 04/19/25 Time Notified: 06:47 Method of Notification: Answering Service 04/19/25 14:46 Consult: Trimmer Machine Operator / Pulmonary Medicine Routine Consulting Provider: Intensivists/Pulmonary Med Reason for Consult: hypotension, dizzy EMERGENT Consult: No Notified: Yes Date Notified: 04/19/25 Time Notified: 14:44 Method of Notification: Answering Service Reason For Visit: HYPONATREMIA, FALLS Diagnosis Discharge Diagnosis (1) Hyponatremia: Status: Acute Code(s): E87.1 - Hypo-osmolality and hyponatremia Plan Patient is a 75-year-old female who presented to [facility] ED on 04/18/2025 with worsening hyponatremia and weakness with falls at home. 1. Hyponatremia probably due to diuretic which she had for 2 weeks: ? Admit under inpatient status to PCU. Nephrology consulted. Baseline sodium around 140; remained around 140 during recent complicated hospitalization from 03/18-03/26. Dropped significantly to sodium 128 on 04/09. Was instructed to discontinue home Lasix on 04/09 but continued until 04/15. Repeat sodium 125 on 04/16 and has continued to worsen to sodium 121 on 04/18. Severe hyperchloremiawith chloride level 71-74 on recent labs. Patient was also on stress dose steroid for 2 days during recent hospitalization. She was recently discharged on 03/24/2025 after management for undifferentiated shock, acute hypoxic and hypercarbic respiratory failure which required ventilator. 04/19: Repeat sodium was 123. Improved 3 mEq. Ctc Operator is consulted. Calculated serum iron 267. Measured serum iron 310. Osmolar gap 43. Unclear etiology. The usual differential diagnosis of increased osmolar gap are methanol, ketoacidosis, lactic acidosis, ethylene glycol, propylene glycol, isopropanol. Repeat the serum osmolarity and osmolar gap. VBG ordered. 04/20: VBG 7.48/mixed pCO2 44, PaO2 133/bicarb 33/34. Bicarb and BMP was also 33.7. Anion gap 9. Sodium is still low 125 x 2. CPK 25. Lactic acid 1.3. Serum osmolality 279 which seems more appropriate than earlier reported 310. Calculated on repeat BMP 04/19 271, osmolar gap 8.0 which is in normal range.UA negative, hCG 1.015, protein 30. Ctc Operator on board 04/21: Serum sodium improved 127 today. K4.2. Bicarb of 37.5. Anion gap 5. Osmolar gap was normal as mentioned above. 04/22 was seen by pillowcase turner. Sodium and chloride at baseline. Sodium 130 4K4.7. Chloride 88. Wants to go to TCU 04/23: Sodium returned normal 134. Patient was on indapamide, naproxen and spironolactone 50 mg daily that is discontinued. Follow-up nephrology in 2 weeks to see whether low-dose spironolactone can be resumed. Naproxen dose decreased to 220 mg as needed. Serum potassium is 4.7. 2. ELVIA with mild hyperkalemia, severe non-anion gap metabolic acidosis, severe hypochloremia ? Nephrology consulted as above. Creatinine 1.30, potassium 5.4 on admit. Baseline creatinine around 0.7-0.8. Bicarb 42. Chloride level 71-74 on recent labs as above. Notably creatinine was 1.6-1.9 on recent labs and has improved to 1.30 with discontinuing home Lasix and losartan. Suspect prerenal etiology due to overdiuresis. 04/19: Continue holding Lasix, losartan, indapamide and spironolactone. SevereNAGMA is presumed secondary to chronic respiratory failure as below. 04/20: Creatinine 1.31. BUN 39, BUN/creatinine ratio 29.4 still high 04/22: BUN/creatinine 28/1.12. 3. 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 Patient with recent complicated hospitalization and required intubation for combined respiratory failure from 03/18-03/20. Was discharged home on 2 L nasal cannula at rest and 3 L with exertion. Has suspected NEEL and recommendation wasfor outpatient workup for this which has not been completed yet. Stable on 2 L nasal cannula at rest in the ED. Monitor. Continue home albuterol inhaler as needed. 04/20: Rib chest x-ray reviewed shows mild pulmonary vascular congestion and bibasilar atelectasis but no obvious shortness of breath. Continue incentive spirometry and PEP for 1 week 04/22: Patient on 2 L of baseline oxygen. Incentive spirometry advised 4. Chronic HFpEF, hypertension ? Echo during recent hospitalization on 03/19 showed EF 75%, moderate concentric LV hypertrophy, no other concerning findings. Mildly hypertensive to the 140s systolic in the ED. Holding home Lasix, losartan, indapamide and spironolactoneas above. Okay to continue home Coreg. 5. Acute on chronic debility with recent falls ? PT/OT/case management consulted. Patient lives at home alone. She was able to be discharged home with home health care after recent prolonged hospitalization. Has had worsening functional status with small falls over the past week or so per family. Appreciate therapy recommendations. 6. Anxiety, depression, insomnia, restless leg syndrome, neuropathy ? Continue home bupropion, duloxetine, gabapentin, pramipexole, mirtazapine and melatonin. 7. Class II obesity ? BMI 36 on admit. Complicates hospital course and care. 8. 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 No evidence of infection. Patient on Dr. Twice daily and continued. Patient also denied prior history of DVT but Sixto Trinh wanted venous duplex of the lower extremities. Venous duplex ordered DVT prophylaxis: Heparin subcu CODE STATUS: DNR CCA, okay to intubate Discharge medication reconciliation done. Discharge follow-up instructions completed. Discharge process discussed with the patient and all questions wereanswered to patient's satisfaction. Follow with PCP in 1 to 2 weeks Total time spent, exact 35 minutes on discharge meds reconciliation, examination, coordination of care with nurses and ancillary staff, review of imaging and blood test and discussion with the patient on follow-up instructions. Microbiology Past 72 Hours 04/19/25 15:10 Blood Culture (Wb) #2 - Right Hand Blood Culture - Preliminary No growth in 48 hours. 04/19/25 15:05 Blood Culture (Wb) - Anticubital Right Blood Culture - Preliminary No growth in 48 hours. 04/20/25 09:35 Urine, Clean Catch Urine Culture - Final Mixed Gram Pos & Gram Neg Org 04/20/25 09:35 Urine, Clean Catch Legionella Antigen - Final 04/20/25 09:35 Urine, Clean Catch Streptococcus pneumoniae Antigen (M - Final 04/19/25 16:10 Nasal Secretion MRSA (PCR) - Final 04/19/25 16:10 Mucosa - Nose SARS-CoV-2, Influenza & RSV (PCR) - Final Laboratory Results 04/22/25 05:20: WBC 6.2, RBC 4.21, Hgb 12.3, Hct 38.2, MCV 90.7, MCH 29.2, MCHC 32.2, RDW Std Deviation 47.8 H, RDW Coeff of Terry 14.6, Plt Count 115 L, MPV 10.6, Immature Gran % (Auto) 1.800 H, Neut % (Auto) 66.8, Lymph % (Auto) 18.2 L,Lyon % (Auto) 8.7, Eos % (Auto) 3.7, Baso % (Auto) 0.8, Absolute Neuts (auto) 4.2, Absolute Lymphs (auto) 1.13, Nucleated RBC % 0, Sodium 134, Potassium 4.7, Chloride 88 L, Carbon Dioxide 40.0 H, Anion Gap 6, BUN 28 H, Creatinine 1.12, Estim Creat Clear Calc 54.29, Est GFR (MDRD) Non-Af 51 L, BUN/Creatinine Ratio 25.4 H, Glucose 102 H, Calcium 9.7 Medications at Discharge Home Medications losartan 50 mg tablet 50 mg PO BID BP 09/19/14 melatonin 5 mg tablet 10 mg PO QHS INSOMNIA 09/19/14 bupropion HCl 300 mg 24 hr tablet, extended release 150 mg PO DAILY DEPRESSION 06/11/20 gabapentin 600 mg tablet 600 mg PO QHS SLEEP 06/11/20 mirtazapine 15 mg tablet 15 mg PO QHS INSOMNIA 06/24/20 duloxetine 30 mg capsule,delayed release (Cymbalta) 30 mg PO DAILY DEPRESSION 09/11/24 aspirin 81 mg chewable tablet 81 mg PO BID blood thinner #0 tabs 09/17/24 loperamide 2 mg capsule 2 mg PO Q2H PRN PRN DIARRHEA #0 caps 09/17/24 albuterol sulfate 90 mcg/actuation aerosol inhaler 2 inh inhalation Q4H PRN shortness of breath or wheezing 03/18/25 doxycycline hyclate 100 mg capsule 100 mg PO BID abx 03/18/25 potassium citrate 10 mEq (1,080 mg) tablet,extended release 10 meq PO DAILY 03/18/25 pramipexole 1 mg tablet 1 mg PO QHS restless leg 03/18/25 spironolactone 50 mg tablet 50 mg PO DAILY diuretic 03/18/25 Held on 04/23/25. Instructions: Hold it. Follow-up with nephrology before resumption. lactobacillus combination no.9 4 billion cell capsule (Adult 50 Plus Probiotic) 4,000 mmu cells PO QDAY GI health 04/16/25 ondansetron HCl 4 mg tablet 4 mg PO Q8 PRN nausea and vomiting 04/16/25 pramipexole 0.5 mg tablet 0.5 mg PO DINNER RLS 04/16/25 OXYGEN - Supplemental ([facility] INFORMATIONAL USE ONLY) hypoxia 04/21/25 carvedilol 3.125 mg tablet 3.125 mg PO BID #0 tabs 04/23/25 naproxen sodium 220 mg tablet 220 mg PO DAILY PRN pain 30 days #0 tabs 04/23/25 sennosides 8.6 mg-docusate sodium 50 mg tablet (Stimulant Laxative Plus) 2 tab PO BID #0 tabs 04/23/25 Physical Exam Narrative Seen and examined Soft/liquid bowel movement controlled improved on loperamide Feels weak. Continue doxycycline left shoulder infection by Dr. Andrade. Serum sodium is normal. Physical exam General: Awake, alert oriented x3, Cooperative HEENT: Atraumatic, PERRLA, EOMI, Normocephalic. Oral: No Gingival or Mucosal Lesions/ Ulcerations Neck: Supple, No JVD, Negative Carotid Bruits Chest wall/Lungs: Air entry diminished in bilateral lung bases. No crepitation Cardiovascular: Low BP. No M/G/R Abdomen: Bowel Sounds Present, Soft, Non Tender, Non-Distended : No dysuria. No renal angle tenderness. No suprapubic tenderness. Extremities: No edema, Capillary Refill Less than 3 Seconds Skin: Bruise on the right knee Musculoskeletal: Weakness of lower extremities, 4+/5 at knees and hip joints. Left shoulder prosthetic joint. No Tenderness to Palpation of Joints or Extremities Neurological: Cranial nerves II-XII grossly intact, DTR 2+/4. No acute focal neurological deficit. Psych/Mental Status: Flat affect Weight / BMI Weight Weight: 236 lb 1.841 oz Body Mass Index (BMI) 36.9 ABG / Lab / Microbiology Data 04/22/25 05:20 04/22/25 05:20 Microbiology: Microbiology 04/19/25 15:10 Blood Culture (Wb) #2 - Right Hand Blood Culture - Preliminary No growth in 48 hours. 04/19/25 15:05 Blood Culture (Wb) - Anticubital Right Blood Culture - Preliminary No growth in 48 hours. 04/20/25 09:35 Urine, Clean Catch Urine Culture - Final Mixed Gram Pos & Gram Neg Org 04/20/25 09:35 Urine, Clean Catch Legionella Antigen - Final 04/20/25 09:35 Urine, Clean Catch Streptococcus pneumoniae Antigen (M - Final 04/19/25 16:10 Nasal Secretion MRSA (PCR) - Final 04/19/25 16:10 Mucosa - Nose SARS-CoV-2, Influenza & RSV (PCR) - Final D/C Instructions DC O2, CPAP, BIPAP Needs Home O2 Discharge instructions: No Meaningful Use Info Meaningful Use Meaningful Use Diagnoses (Choose all that apply): None applicable Discharge Plan Admission Admit Date/Time: 04/18/25 17:23 Attending Provider: Garfield Pierson Primary Care Provider: Kamar Grimes Consulting Providers: Jermaine Simms; Wally Waddell; Garrick Staples; Murtaza Hunter; Antwan Gardner; Abdirashid Smith; Gemini Briceño; Reginaldo Fatima; Rhonda Arceo; Alden Arcos; Rosalind Key; Jose Angel Handley; Petros Akbar; Julissa Lawrence; Jones Galindo; Bennett Peñaloza; Lamin Campos; Zakia Love; Sarah Hicks; Al Angel; Shaila Lai; Nayely Givens; Jamie Sawant; Brenna Young; Ruma Barnes; Saeed Felipe; Mari Fallon; Brenna Pierce; Luke Rojas; Travis Daley; Butch Ospina; Elva Mixon; John Shepard; Angel Alva; Alina Garcia; Roopa Sands; Odilia Lockwood; Adarsh Salcido; Hermann Can; Gage Jenkins; Celestino Gallagher; Tacos Hollins; John Quinn; Keya Basilio Discharge Orders/Prescriptions Prescriptions: New sennosides-docusate sodium [Stimulant Laxative Plus] 8.6-50 mg Tablet 2 tab PO BID Qty: 0 0RF carvedilol 3.125 mg Tablet 3.125 mg PO BID Qty: 0 0RF Continued ondansetron HCl 4 mg tablet 4 mg PO Q8 PRN (Reason: nausea and vomiting) Adult 50 Plus Probiotic 4 billion cell capsule 4,000 mmu cells PO QDAY Rx Instructions: administer with a meal losartan 50 MG tablet 50 mg PO BID Patient Comments: BLOOD PRESSURE melatonin 5 MG tablet 10 mg PO QHS Patient Comments: SLEEP gabapentin 600 MG tablet 600 mg PO QHS bupropion HCl 300 MG tablet extended release 24 hr 150 mg PO DAILY mirtazapine 15 MG tablet 15 mg PO QHS potassium citrate 10 mEq (1,080 mg) tablet extended release 10 meq PO DAILY doxycycline hyclate 100 mg capsule 100 mg PO BID pramipexole 1 mg tablet 1 mg PO QHS albuterol sulfate 90 mcg/actuation HFA aerosol inhaler 2 inh inhalation Q4H PRN (Reason: shortness of breath or wheezing) duloxetine [Cymbalta] 30 mg capsule,delayed release(DR/EC) 30 mg PO DAILY loperamide 2 mg Capsule 2 mg PO Q2H PRN PRN (Reason: DIARRHEA) Qty: 0 0RF aspirin 81 mg Tablet,Chewable 81 mg PO BID Qty: 0 0RF pramipexole 0.5 mg tablet 0.5 mg PO DINNER OXYGEN - Supplemental ([facility] INFORMATIONAL USE ONLY) Patient Comments: DME: Narciso 2 lpm NC continuous use, per CM note and patient. 3L with excertion Changed naproxen sodium 220 mg tablet 220 mg PO DAILY PRN (Reason: pain) 30 Days Qty: 0 0RF Held spironolactone 50 mg tablet 50 mg PO DAILY Hold Instructions: Hold it. Follow-up with nephrology before resumption. Discontinued indapamide 2.5 mg tablet 2.5 mg PO DAILY carvedilol 3.125 mg tablet 1.56 mg PO BID Referrals / Follow Up: Kamar Grimes MD [Primary Care Provider, Family Practice] - Within 2 Weeks Keya Basilio MD [Med Staff - Consulting, Nephrology] - Within 2 Weeks Referral Note: For hyponatremia. Disposition Disposition (needs filled in before D/C Order can be placed): [facility] Charges/Coding Visit Charges Inpatient E&M: 93169 Disch Hosp >30min 04/23/25 1711 <Electronically signed by Garfield Pierson MD> Cosigner Signature (if applicable): CC: Dr. Kamar Grimes MD; Dr. Garfield Pierson MD~ Signed [facility] Work Phone: 1(660) 358-781610-22-2025 [place] [address]-22-2025 Hospital Discharge instructionsAdditional Instructions Date of Discharge: 04/23/25[facility] Work Phone: 1(488) 615-800610-21-2025 Progress note Author Garfield Pierson [facility] Note Date/Time April 22, 2025 6 :33pm [facility] Medical Records Department [address] [place] [address] Progress Note - Hospitalist 04/22/25 1729 MR#: [id number] Acct: [id number] Name: OSCAR WOO Rep #:[id number] : 1950 75 From: Garfield Chi PCP: Dr. Kamar Grimes MD Status:ADM IN Location: [place] [address]- 1 Reason for Visit Chief Complaint: Worsening hyponatremia and falls Objective Data Objective Data Vital Signs: Vital Signs Temp Pulse Resp BP Pulse Ox O2 Del Method O2 Flow Rate 98.7 F 99 20 H 131/75 H 97 Nasal Cannula 2 04/22/25 16:17 04/22/25 16:17 04/22/25 16:17 04/22/25 16:17 04/22/25 16:17 04/22/25 16:17 04/22/25 16:17 Oxygen Flow Rate (L/min) 2 Oxygen Delivery Method Nasal Cannula Weight: 239 lb 13.807 oz Body Mass Index (BMI) 37.5 Intake & Output: Intake and Output for Last 24 Hours 04/20/25 04/21/25 04/22/25 23:59 23:59 23:59 Intake Total 660 / 660 1939 Output Total 300 / 300 Balance 360 / 360 1939 Lab / Micro Data 04/22/25 05:20 04/22/25 05:20 Labs: Laboratory Results - last 24 hr 04/22/25 05:20: WBC 6.2, RBC 4.21, Hgb 12.3, Hct 38.2, MCV 90.7, MCH 29.2, MCHC 32.2, RDW Std Deviation 47.8 H, RDW Coeff of Terry 14.6, Plt Count 115 L, MPV 10.6, Immature Gran % (Auto) 1.800 H, Neut % (Auto) 66.8, Lymph % (Auto) 18.2 L,Lyon % (Auto) 8.7, Eos % (Auto) 3.7, Baso % (Auto) 0.8, Absolute Neuts (auto) 4.2, Absolute Lymphs (auto) 1.13, Nucleated RBC % 0, Sodium 134, Potassium 4.7, Chloride 88 L, Carbon Dioxide 40.0 H, Anion Gap 6, BUN 28 H, Creatinine 1.12, Estim Creat Clear Calc 54.29, Est GFR (MDRD) Non-Af 51 L, BUN/Creatinine Ratio 25.4 H, Glucose 102 H, Calcium 9.7 Micro: Microbiology 04/19/25 15:10 Blood Culture (Wb) #2 - Right Hand Blood Culture - Preliminary No growth in 48 hours. 04/19/25 15:05 Blood Culture (Wb) - Anticubital Right Blood Culture - Preliminary No growth in 48 hours. 04/20/25 09:35 Urine, Clean Catch Urine Culture - Final Mixed Gram Pos & Gram Neg Org 04/20/25 09:35 Urine, Clean Catch Legionella Antigen - Final 04/20/25 09:35 Urine, Clean Catch Streptococcus pneumoniae Antigen (M - Final 04/19/25 16:10 Nasal Secretion MRSA (PCR) - Final 04/19/25 16:10 Mucosa - Nose SARS-CoV-2, Influenza & RSV (PCR) - Final Radiography Diagnostic Testing: Radiology Impression Venous Doppler Study 04/21/25 08:33 Interpretation Summary Deep veins of the lower extremities are bilaterally patent and compressible segmentally. There is no evidence of deep vein thrombosis on either side. Valvular competence appears intact within the proximal deep venous systems bilaterally. The great saphenous veins appear bilaterally patent and compressible segmentally. Ordering Physician: Garfield Pierson Referring Physician: Sixto Trinh Performed By: Dada Andujar RVT Physical Exam Narrative Seen and examined Patient having soft, well-formed bowel movement, Sample does not meet criteria for C. difficile. Feels weak. Continue doxycycline left shoulder infection by Dr. Andrade. Serum sodium is better Physical exam General: Awake, alert oriented x3, Cooperative HEENT: Atraumatic, PERRLA, EOMI, Normocephalic. Oral: No Gingival or Mucosal Lesions/ Ulcerations Neck: Supple, No JVD, Negative Carotid Bruits Chest wall/Lungs: Air entry diminished in bilateral lung bases. No crepitation Cardiovascular: Low BP. No M/G/R Abdomen: Bowel Sounds Present, Soft, Non Tender, Non-Distended : No dysuria. No renal angle tenderness. No suprapubic tenderness. Extremities: No edema, Capillary Refill Less than 3 Seconds Skin: Bruise on the right knee Musculoskeletal: Weakness of lower extremities, 4+/5 at knees and hip joints. Left shoulder prosthetic joint. No Tenderness to Palpation of Joints or Extremities Neurological: Cranial nerves II-XII grossly intact, DTR 2+/4. No acute focal neurological deficit. Psych/Mental Status: Flat affect Assessment & Plan Assessment/Plan (1) Hyponatremia: PLAN: Plan Patient is a 75-year-old female who presented to [facility] ED on 04/18/2025 with worsening hyponatremia and weakness with falls at home. 1. Hyponatremia probably due to diuretic which she had for 2 weeks: ? Admit under inpatient status to PCU. Nephrology consulted. Baseline sodium around 140; remained around 140 during recent complicated hospitalization from 03/18- 03/26. Dropped significantly to sodium 128 on 04/09. Was instructed to discontinue home Lasix on 04/09 but continued until 04/15. Repeat sodium 125 on 04/16 and has continued to worsen to sodium 121 on 04/18. Severe hyperchloremiawith chloride level 71-74 on recent labs. Patient was also on stress dose steroid for 2 days during recent hospitalization. She was recently discharged on 03/24/2025 after management for undifferentiated shock, acute hypoxic and hypercarbic respiratory failure which required ventilator. 04/19: Repeat sodium was 123. Improved 3 mEq. Ctc Operator is consulted. Calculated serum iron 267. Measured serum iron 310. Osmolar gap 43. Unclear etiology. The usual differential diagnosis of increased osmolar gap are methanol, ketoacidosis, lactic acidosis, ethylene glycol, propylene glycol, isopropanol. Repeat the serum osmolarity and osmolar gap. VBG ordered. 04/20: VBG 7.48/mixed pCO2 44, PaO2 133/bicarb 33/34. Bicarb and BMP was also 33.7. Anion gap 9. Sodium is still low 125 x 2. CPK 25. Lactic acid 1.3. Serum osmolality 279 which seems more appropriate than earlier reported 310. Calculated on repeat BMP 04/19 271, osmolar gap 8.0 which is in normal range.UA negative, hCG 1.015, protein 30. Ctc Operator on board 04/21: Serum sodium improved 127 today. K4.2. Bicarb of 37.5. Anion gap 5. Osmolar gap was normal as mentioned above. 04/22 was seen by pillowcase turner. Sodium and chloride at baseline. Sodium 130 4K4.7. Chloride 88. Wants to go to TCU 2. ELVIA with mild hyperkalemia, severe non-anion gap metabolic acidosis, severe hypochloremia ? Nephrology consulted as above. Creatinine 1.30, potassium 5.4 on admit. Baseline creatinine around 0.7-0.8. Bicarb 42. Chloride level 71-74 on recent labs as above. Notably creatinine was 1.6-1.9 on recent labs and has improved to 1.30 with discontinuing home Lasix and losartan. Suspect prerenal etiology due to overdiuresis. 04/19: Continue holding Lasix, losartan, indapamide and spironolactone. SevereNAGMA is presumed secondary to chronic respiratory failure as below. 04/20: Creatinine 1.31. BUN 39, BUN/creatinine ratio 29.4 still high 04/22: BUN/creatinine 28/1.12. 3. 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 Patient with recent complicated hospitalization and required intubation for combined respiratory failure from 03/18-03/20. Was discharged home on 2 L nasal cannula at rest and 3 L with exertion. Has suspected NEEL and recommendation wasfor outpatient workup for this which has not been completed yet. Stable on 2 L nasal cannula at rest in the ED. Monitor. Continue home albuterol inhaler as needed. 04/20: Rib chest x-ray reviewed shows mild pulmonary vascular congestion and bibasilar atelectasis but no obvious shortness of breath. Continue incentive spirometry and PEP for 1 week 04/22: Patient on 2 L of baseline oxygen. Incentive spirometry advised 4. Chronic HFpEF, hypertension ? Echo during recent hospitalization on 03/19 showed EF 75%, moderate concentric LV hypertrophy, no other concerning findings. Mildly hypertensive to the 140s systolic in the ED. Holding home Lasix, losartan, indapamide and spironolactoneas above. Okay to continue home Coreg. 5. Acute on chronic debility with recent falls ? PT/OT/case management consulted. Patient lives at home alone. She was able to be discharged home with home health care after recent prolonged hospitalization. Has had worsening functional status with small falls over the past week or so per family. Appreciate therapy recommendations. 6. Anxiety, depression, insomnia, restless leg syndrome, neuropathy ? Continue home bupropion, duloxetine, gabapentin, pramipexole, mirtazapine and melatonin. 7. Class II obesity ? BMI 36 on admit. Complicates hospital course and care. 8. 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 No evidence of infection. Patient on Dr. Twice daily and continued. Patient also denied prior history of DVT but Sixto Trinh wanted venous duplex of the lower extremities. Venous duplex ordered DVT prophylaxis: Heparin subcu CODE STATUS: DNR CCA, okay to intubate Microbiology Past 72 Hours 04/19/25 15:10 Blood Culture (Wb) #2 - Right Hand Blood Culture - Preliminary No growth in 48 hours. 04/19/25 15:05 Blood Culture (Wb) - Anticubital Right Blood Culture - Preliminary No growth in 48 hours. 04/20/25 09:35 Urine, Clean Catch Urine Culture - Final Mixed Gram Pos & Gram Neg Org 04/20/25 09:35 Urine, Clean Catch Legionella Antigen - Final 04/20/25 09:35 Urine, Clean Catch Streptococcus pneumoniae Antigen (M - Final 04/19/25 16:10 Nasal Secretion MRSA (PCR) - Final 04/19/25 16:10 Mucosa - Nose SARS-CoV-2, Influenza & RSV (PCR) - Final Laboratory Results 04/22/25 05:20: WBC 6.2, RBC 4.21, Hgb 12.3, Hct 38.2, MCV 90.7, MCH 29.2, MCHC 32.2, RDW Std Deviation 47.8 H, RDW Coeff of Terry 14.6, Plt Count 115 L, MPV 10.6, Immature Gran % (Auto) 1.800 H, Neut % (Auto) 66.8, Lymph % (Auto) 18.2 L,Lyon % (Auto) 8.7, Eos % (Auto) 3.7, Baso % (Auto) 0.8, Absolute Neuts (auto) 4.2, Absolute Lymphs (auto) 1.13, Nucleated RBC % 0, Sodium 134, Potassium 4.7, Chloride 88 L, Carbon Dioxide 40.0 H, Anion Gap 6, BUN 28 H, Creatinine 1.12, Estim Creat Clear Calc 54.29, Est GFR (MDRD) Non-Af 51 L, BUN/Creatinine Ratio 25.4 H, Glucose 102 H, Calcium 9.7 Charges/Coding Visit Charges Inpatient E&M: 51983 Subs Hosp L2 04/22/25 1738 <Electronically signed by Garfield Pierson MD> Cosigner Signature (if applicable): CC: ~ Signed [facility] Work Phone: 1(897) 588-162810-21-2025 Progress note Author Keya Basilio [facility] Note Date/Time April 23, 2025 7 :52pm [facility] Medical Records Department [address] [place] [address] Progress Note - Nephrology 04/22/251724 MR#: [id number] Acct: [id number] Name: OSCAR WOO Rep #:[id number] : 1950 75 From: Keya kendrick MD PCP: Dr. Kamar Grimes MD Status:ADM IN Location: [place] [address] Subjective Subjective no new events Objective Data Objective Data Vital Signs: Vital Signs Temp Pulse Resp BP Pulse Ox O2 Del Method O2 Flow Rate 98.7 F 99 20 H 131/75 H 97 Nasal Cannula 2 04/22/25 16:17 04/22/25 16:17 04/22/25 16:17 04/22/25 16:17 04/22/25 16:17 04/22/25 16:17 04/22/25 16:17 Oxygen Flow Rate (L/min) 2 Oxygen Delivery Method Nasal Cannula Weight: 108.8 kg Body Mass Index (BMI) 37.5 Intake & Output: Intake and Output for Last 24 Hours 04/20/25 04/21/25 04/22/25 23:59 23:59 23:59 Intake Total 660 / 660 1939 Output Total 300 / 300 Balance 360 / 360 1939 Lab / Micro Data 04/22/25 05:20 04/22/25 05:20 Labs: Laboratory Results - last 24 hr 04/22/25 05:20: WBC 6.2, RBC 4.21, Hgb 12.3, Hct 38.2, MCV 90.7, MCH 29.2, MCHC 32.2, RDW Std Deviation 47.8 H, RDW Coeff of Terry 14.6, Plt Count 115 L, MPV 10.6, Immature Gran % (Auto) 1.800 H, Neut % (Auto) 66.8, Lymph % (Auto) 18.2 L,Lyon % (Auto) 8.7, Eos % (Auto) 3.7, Baso % (Auto) 0.8, Absolute Neuts (auto) 4.2, Absolute Lymphs (auto) 1.13, Nucleated RBC % 0, Sodium 134, Potassium 4.7, Chloride 88 L, Carbon Dioxide 40.0 H, Anion Gap 6, BUN 28 H, Creatinine 1.12, Estim Creat Clear Calc 54.29, Est GFR (MDRD) Non-Af 51 L, BUN/Creatinine Ratio 25.4 H, Glucose 102 H, Calcium 9.7 Micro: Microbiology 04/19/25 15:10 Blood Culture (Wb) #2 - Right Hand Blood Culture - Preliminary No growth in 48 hours. 04/19/25 15:05 Blood Culture (Wb) - Anticubital Right Blood Culture - Preliminary No growth in 48 hours. 04/20/25 09:35 Urine, Clean Catch Urine Culture - Final Mixed Gram Pos & Gram Neg Org 04/20/25 09:35 Urine, Clean Catch Legionella Antigen - Final 04/20/25 09:35 Urine, Clean Catch Streptococcus pneumoniae Antigen (M - Final 04/19/25 16:10 Nasal Secretion MRSA (PCR) - Final 04/19/25 16:10 Mucosa - Nose SARS-CoV-2, Influenza & RSV (PCR) - Final Radiography Diagnostic Testing: Radiology Impression Venous Doppler Study 04/21/25 08:33 Interpretation Summary Deep veins of the lower extremities are bilaterally patent and compressible segmentally. There is no evidence of deep vein thrombosis on either side. Valvular competence appears intact within the proximal deep venous systems bilaterally. The great saphenous veins appear bilaterally patent and compressible segmentally. Ordering Physician: Garfield Pierson Referring Physician: Sixto Trinh Performed By: Dada Andujar RVT Physical Exam Narrative Alert awake oriented x 3 no obvious distress no pallor no icterus no JVD s1s2 no murmurs lungs clear abdomen soft no organomegaly no edema no cyanosis Assessment & Plan Assessment/Plan (1) Hyponatremia: PLAN: sodium and chloride were normal last month. consistent with hypovolemic hyponatremia and contraction alkalosis. Sodium is now better. Not much peripheral edema. Breathing is back to baseline. Bicarbonate is still on the higher side. On review of her previous lab data, bicarbonate levels at baselineare around 30-34. Hold off on Diamox for now. Discussed with hospitalist. Patient asking about discharge plans. From nephrology standpoint, she can be discharged. (2) Hypochloremic alkalosis: 04/22/251724 <Electronically signed by Keya Basilio MD> Cosigner Signature (if applicable): CC: ~ Signed [facility] Work Phone: [phone]) 613-391010-20-2025 Consult note Author Keya Basilio [facility] Note Date/Time April 21, 2025 9 :53pm [facility] Medical Records Department [address] [place] [address] Consultation - Nephrology 04/21/252049 MR#: [id number] Acct: [id number] Name: OSCAR WOO Rep #:[id number] : 1950 75 From: Keya kendrick MD PCP: Dr. Kamar Grimes MD Status:[facility]M [facility] Assessment & Plan Assessment/Plan (1) Hyponatremia: PLAN: sodium and chloride were normal last month. consistent with hypovolemic hyponatremia and contraction alkalosis. sodium is slowly improving. asymptomaticfrom hyponatremia. (2) Hypochloremic alkalosis: HPI Consult Data Date of Consult: 04/21/25 HPI Narrative Reason for Consultation: Hyponatremia HPI Narrative: OSCAR WOO, is a 75 F who presents to the hospital with syncope. nephrology on consultation in view of hyponatremia. sodium was normal as of last month. apparently was started on lasix due to dyspnea. she says breathing improved somewhat. does not think she lost a lot of weight. no edema right now. no urinary complaints. 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 Essential (primary) hypertension Debility Infection and inflammatory reaction due to other [...] mg tablet 10 mg PO QHS INSOMNIA 04/17/25 History bupropion HCl 300 mg 24 hr tablet, 150 mg PO DAILY DEP RESSION 06/11/20 04/18/25 History extended release gabapentin 600 mg tablet 600 mg PO QHS SLEEP 06/11/20 04/17/25 History mirtazapine 15 mg tablet 15 mg PO QHS INSOMNIA 04/17/25 History duloxetine 30 mg capsule,delayed 30 mg PO DAILY DEPRES RAHEEM 09/11/24 04/18/25 History release (Cymbalta) aspirin 81 mg chewable tablet 81 mg PO BID blood thinn er #0 tabs 09/17/24 04/18/25 Rx loperamide 2 mg capsule 2 mg PO Q2H PRN PRN DIARRHEA #0 09/17/24 Unknown Rx caps albuterol sulfate 90 mcg/actuation 2 inh inhalation Q4 H PRN shortness 03/18/25 Unknown History aerosol inhaler of breath or wheezing doxycycline hyclate 100 mg capsule 100 mg PO BID abx 0 03/18/25 04/18/25 History indapamide 2.5 mg tablet 2.5 mg PO DAILY diuretic Unknown History naproxen sodium 220 mg tablet 440 mg PO DAILY PRN pain 03/18/25 Unknown History potassium citrate 10 mEq (1,080 10 meq PO DAILY Unknown History mg) tablet,extended release pramipexole 1 mg tablet 1 mg PO QHS restless leg Unknown History spironolactone 50 mg tablet 50 mg PO DAILY diuretic 04/18/25 History carvedilol 3.125 mg tablet 1.56 mg PO BID bp 04/16/25 04/18/25 History lactobacillus combination no.9 4 4,000 mmu cells PO QD AY GI health 04/16/25 Unknown History billion cell capsule (Adult 50 Plus Probiotic) ondansetron HCl 4 mg tablet 4 mg PO Q8 PRN nausea and vomiting 04/16/25 Unknown History pramipexole 0.5 mg tablet 0.5 mg PO DINNER RLS 5 Unknown History OXYGEN - Supplemental ([facility] hypoxia 04/21/25 Unknown Hi story INFORMATIONAL USE ONLY) Allergy/AdvReac Type Severity Reaction Status Date / Time Penicillins Allergy Anaphylaxis Verified 04/18/25 13:45 Family History Mother Heart disease Diabetes Brother Heart disease Diabetes Brother Heart disease pacemaker Sister Atrial fibrillation Surgical History History of reverse total replacement [...] household members: none Smoking Status: Former smoker how long ago did patient quit smokin years ago alcohol intake: never substance use type: does not use caffeine: No ROS ROS Narrative negative except above Physical Exam Narrative Alert awake oriented x 3 no obvious distress no pallor no icterus no JVD s1s2 no murmurs lungs clear abdomen soft no organomegaly no edema no cyanosis Lab / Micro Data 04/21/25 04:00 04/21/25 04:00 Labs: Laboratory Results - last 24 hr 04/21/25 04:00: WBC 7.6, RBC 3.91 L, Hgb 11.5 L, Hct 35.2 L, MCV 90.0, MCH 29.4,MCHC 32.7, RDW Std Deviation 46.6 H, RDW Coeff of Terry 14.6, Plt Count 113 L, MPV10.7, Immature Gran % (Auto) 1.100 H, Neut % (Auto) 74.4 H, Lymph % (Auto) 13.3 L, Lyon % (Auto) 8.1, Eos % (Auto) 2.6, Baso % (Auto) 0.5, Absolute Neuts (auto)5.7, Absolute Lymphs (auto) 1.01, Nucleated RBC % 0, Sodium 127 L, Potassium 4.2, Chloride 85 L, Carbon Dioxide 37.5 H, Anion Gap 5, BUN 33 H, Creatinine 1.20, Estim Creat Clear Calc 50.67, Est GFR (MDRD) Non-Af 47 L, BUN/Creatinine Ratio 27.3 H, Glucose 130 H, Calcium 9.0 Imaging Radiology Impression Venous Doppler Study 04/21/25 08:33 Interpretation Summary Deep veins of the lower extremities are bilaterally patent and compressible segmentally. There is no evidence of deep vein thrombosis on either side. Valvular competence appears intact within the proximal deep venous systems bilaterally. The great saphenous veins appear bilaterally patent and compressible segmentally. Ordering Physician: Garfield Pierson Referring Physician: Sixto Trinh Performed By: Dada Andujar RVT 04/21/252052 <Electronically signed by Keya Basilio MD> Cosigner Signature (if applicable): CC: Dr. Kamar Grimes MD~ Signed [facility] Work Phone: [phone] 499-499310-20-2025 Progress note Author Garfield Pierson [facility] Note Date/Time April 21, 2025 9 :39am [facility] Medical Records Department [address] [place] [address] Progress Note - Hospitalist 04/21/25832 MR#: [id number] Acct: [id number] Name: OSCAR WOO Rep #:[id number] : 1950 75 From: Garfield Chi PCP: Dr. Kamar Grimes MD Status:ADM IN Location: ICU [place] [address] 1-1 Reason for Visit Chief Complaint: Worsening hyponatremia and falls Objective Data Objective Data Vital Signs: Vital Signs Temp Pulse Resp BP Pulse Ox O2 Del Method O2 Flow Rate 98.4 F 82 22 H 121/58 H 97 Nasal Cannula 2 04/21/25 04:00 04/21/25 04:00 04/21/25 04:00 04/21/25 04:00 04/21/25 08:31 04/21/25 08:31 04/21/25 08:31 Oxygen Flow Rate (L/min) 2 Oxygen Delivery Method Nasal Cannula Weight: 239 lb 13.807 oz Body Mass Index (BMI) 37.5 Intake & Output: Intake and Output for Last 24 Hours 04/19/25 04/20/25 04/21/25 23:59 23:59 23:59 Intake Total 3300 / 3300 660 / 660 1240 / 1240 Output Total 300 / 300 Balance 3280 / 3280 360 / 360 1240 / 1240 Lab / Micro Data 04/21/25 04:00 04/21/25 04:00 Labs: Laboratory Results - last 24 hr 04/20/25 09:35: Urine Color Yellow, Urine Clarity Sl. Cloudy, Urine pH 6.0, Ur Specific [place] 1.010, Urine Protein 30 H, Urine Glucose (UA) 250 H, Urine Ketones Negative, Urine Occult Blood Negative, Urine Nitrite Negative, Urine Bilirubin Negative, Urine Urobilinogen Normal, Ur Leukocyte Esterase Negative, Urine RBC 0 SEEN, Urine WBC 0 SEEN, Ur Squamous Epith Cells 0-5 SEEN, Ur Transition Epith Cell 0-5 SEEN, Urine Bacteria 0 SEEN, Urine Mucus 0 SEEN, UrineOsmolality 263 04/20/25 09:35: Urine Osmolality Cancelled, Ur Random Sodium 34, Urine Opiates Screen NEGATIVE, U Buprenorphine Qual NEGATIVE, Ur Oxycodone Screen NEGATIVE, Urine Methadone Screen NEGATIVE, Urine Fentanyl Screen NEGATIVE, Ur BarbituratesScreen NEGATIVE, Ur Phencyclidine Scrn NEGATIVE, Ur Amphetamines Screen NEGATIVE, U Benzodiazepines Scrn NEGATIVE, Urine Cocaine Screen NEGATIVE, U Cannabinoids Screen NEGATIVE 04/21/25 04:00: WBC 7.6, RBC 3.91 L, Hgb 11.5 L, Hct 35.2 L, MCV 90.0, MCH 29.4,MCHC 32.7, RDW Std Deviation 46.6 H, RDW Coeff of Terry 14.6, Plt Count 113 L, MPV10.7, Immature Gran % (Auto) 1.100 H, Neut % (Auto) 74.4 H, Lymph % (Auto) 13.3 L, Lyon % (Auto) 8.1, Eos % (Auto) 2.6, Baso % (Auto) 0.5, Absolute Neuts (auto)5.7, Absolute Lymphs (auto) 1.01, Nucleated RBC % 0, Sodium 127 L, Potassium 4.2, Chloride 85 L, Carbon Dioxide 37.5 H, Anion Gap 5, BUN 33 H, Creatinine 1.20, Estim Creat Clear Calc 50.67, Est GFR (MDRD) Non-Af 47 L, BUN/Creatinine Ratio 27.3 H, Glucose 130 H, Calcium 9.0 Micro: Microbiology 04/20/25 09:35 Urine, Clean Catch Legionella Antigen - Final 04/20/25 09:35 Urine, Clean Catch Streptococcus pneumoniae Antigen (M - Final 04/19/25 16:10 Nasal Secretion MRSA (PCR) - Final 04/19/25 16:10 Mucosa - Nose SARS-CoV-2, Influenza & RSV (PCR) - Final Physical Exam Narrative Seen and examined Patient overall feeling good. Patient concerned about antibiotic which was started for left shoulder infection by Dr. Andrade. Doxycycline resumed probably it was held because of confusion and not safe p.o. Blood pressure is good currently systolic 150s Remembers month ER day. She has chronic history of fall since she was a kid as she had polio Physical exam General: Awake, intermittent confusion. Oriented x3, Cooperative HEENT: Atraumatic, PERRLA, EOMI, Normocephalic. Oral: No Gingival or Mucosal Lesions/ Ulcerations Neck: Supple, No JVD, Negative Carotid Bruits Chest wall/Lungs: Air entry diminished in bilateral lung bases. Mild occasional crepitation in left lung base Cardiovascular: Low BP. No M/G/R Abdomen: Bowel Sounds Present, Soft, Non Tender, Non-Distended : No dysuria. No renal angle tenderness. No suprapubic tenderness. Extremities: No edema, Capillary Refill Less than 3 Seconds Skin: Bruise on the right knee Musculoskeletal: Weakness of lower extremities, 4+/5 at knees and hip joints. Left shoulder prosthetic joint. No Tenderness to Palpation of Joints or Extremities Neurological: Cranial nerves II-XII grossly intact, DTR 2+/4. No acute focal neurological deficit. Psych/Mental Status: Flat affect Assessment & Plan Assessment/Plan (1) Hyponatremia: PLAN: Plan Patient is a 75-year-old female who presented to [facility] ED on 04/18/2025 with worsening hyponatremia and weakness with falls at home. 1. Hyponatremia probably due to diuretic which she had for 2 weeks: ? Admit under inpatient status to PCU. Nephrology consulted. Baseline sodium around 140; remained around 140 during recent complicated hospitalization from 03/18- 03/26. Dropped significantly to sodium 128 on 04/09. Was instructed to discontinue home Lasix on 04/09 but continued until 04/15. Repeat sodium 125 on 04/16 and has continued to worsen to sodium 121 on 04/18. Severe hyperchloremiawith chloride level 71-74 on recent labs. Patient was also on stress dose steroid for 2 days during recent hospitalization. She was recently discharged on 03/24/2025 after management for undifferentiated shock, acute hypoxic and hypercarbic respiratory failure which required ventilator. 04/19: Repeat sodium was 123. Improved 3 mEq. Ctc Operator is consulted. Calculated serum iron 267. Measured serum iron 310. Osmolar gap 43. Unclear etiology. The usual differential diagnosis of increased osmolar gap are methanol, ketoacidosis, lactic acidosis, ethylene glycol, propylene glycol, isopropanol. Repeat the serum osmolarity and osmolar gap. VBG ordered. 04/20: VBG 7.48/mixed pCO2 44, PaO2 133/bicarb 33/34. Bicarb and BMP was also 33.7. Anion gap 9. Sodium is still low 125 x 2. CPK 25. Lactic acid 1.3. Serum osmolality 279 which seems more appropriate than earlier reported 310. Calculated on repeat BMP 04/19 271, osmolar gap 8.0 which is in normal range.UA negative, hCG 1.015, protein 30. Ctc Operator on board 04/21: Serum sodium improved 127 today. K4.2. Bicarb of 37.5. Anion gap 5. Osmolar gap was normal as mentioned above. 2. ELVIA with mild hyperkalemia, severe non-anion gap metabolic acidosis, severe hypochloremia ? Nephrology consulted as above. Creatinine 1.30, potassium 5.4 on admit. Baseline creatinine around 0.7-0.8. Bicarb 42. Chloride level 71-74 on recent labs as above. Notably creatinine was 1.6-1.9 on recent labs and has improved to 1.30 with discontinuing home Lasix and losartan. Suspect prerenal etiology due to overdiuresis. 04/19: Continue holding Lasix, losartan, indapamide and spironolactone. SevereNAGMA is presumed secondary to chronic respiratory failure as below. 04/20: Creatinine 1.31. BUN 39, BUN/creatinine ratio 29.4 still high 3. 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 Patient with recent complicated hospitalization and required intubation for combined respiratory failure from 03/18-03/20. Was discharged home on 2 L nasal cannula at rest and 3 L with exertion. Has suspected NEEL and recommendation wasfor outpatient workup for this which has not been completed yet. Stable on 2 L nasal cannula at rest in the ED. Monitor. Continue home albuterol inhaler as needed. 04/20: Rib chest x-ray reviewed shows mild pulmonary vascular congestion and bibasilar atelectasis but no obvious shortness of breath. Continue incentive spirometry and PEP for 1 week 4. Chronic HFpEF, hypertension ? Echo during recent hospitalization on 03/19 showed EF 75%, moderate concentric LV hypertrophy, no other concerning findings. Mildly hypertensive to the 140s systolic in the ED. Holding home Lasix, losartan, indapamide and spironolactoneas above. Okay to continue home Coreg. 5. Acute on chronic debility with recent falls ? PT/OT/case management consulted. Patient lives at home alone. She was able to be discharged home with home health care after recent prolonged hospitalization. Has had worsening functional status with small falls over the past week or so per family. Appreciate therapy recommendations. 6. Anxiety, depression, insomnia, restless leg syndrome, neuropathy ? Continue home bupropion, duloxetine, gabapentin, pramipexole, mirtazapine and melatonin. 7. Class II obesity ? BMI 36 on admit. Complicates hospital course and care. 8. 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 No evidence of infection. Patient on Dr. Twice daily and continued. Patient also denied prior history of DVT but Sixto Trinh wanted venous duplex of the lower extremities. Venous duplex ordered DVT prophylaxis: Heparin subcu CODE STATUS: DNR CCA, okay to intubate Microbiology Past 72 Hours 04/20/25 09:35 Urine, Clean Catch Legionella Antigen - Final 04/20/25 09:35 Urine, Clean Catch Streptococcus pneumoniae Antigen (M - Final 04/19/25 16:10 Nasal Secretion MRSA (PCR) - Final 04/19/25 16:10 Mucosa - Nose SARS-CoV-2, Influenza & RSV (PCR) - Final Laboratory Results 04/20/25 09:35: Urine Color Yellow, Urine Clarity Sl. Cloudy, Urine pH 6.0, Ur Specific [place] 1.010, Urine Protein 30 H, Urine Glucose (UA) 250 H, Urine Ketones Negative, Urine Occult Blood Negative, Urine Nitrite Negative, Urine Bilirubin Negative, Urine Urobilinogen Normal, Ur Leukocyte Esterase Negative, Urine RBC 0 SEEN, Urine WBC 0 SEEN, Ur Squamous Epith Cells 0-5 SEEN, Ur Transition Epith Cell 0-5 SEEN, Urine Bacteria 0 SEEN, Urine Mucus 0 SEEN, UrineOsmolality 263 04/20/25 09:35: Urine Osmolality Cancelled, Ur Random Sodium 34, Urine Opiates Screen NEGATIVE, U Buprenorphine Qual NEGATIVE, Ur Oxycodone Screen NEGATIVE, Urine Methadone Screen NEGATIVE, Urine Fentanyl Screen NEGATIVE, Ur BarbituratesScreen NEGATIVE, Ur Phencyclidine Scrn NEGATIVE, Ur Amphetamines Screen NEGATIVE, U Benzodiazepines Scrn NEGATIVE, Urine Cocaine Screen NEGATIVE, U Cannabinoids Screen NEGATIVE 04/21/25 04:00: WBC 7.6, RBC 3.91 L, Hgb 11.5 L, Hct 35.2 L, MCV 90.0, MCH 29.4,MCHC 32.7, RDW Std Deviation 46.6 H, RDW Coeff of Terry 14.6, Plt Count 113 L, MPV10.7, Immature Gran % (Auto) 1.100 H, Neut % (Auto) 74.4 H, Lymph % (Auto) 13.3 L, Lyon % (Auto) 8.1, Eos % (Auto) 2.6, Baso % (Auto) 0.5, Absolute Neuts (auto)5.7, Absolute Lymphs (auto) 1.01, Nucleated RBC % 0, Sodium 127 L, Potassium 4.2, Chloride 85 L, Carbon Dioxide 37.5 H, Anion Gap 5, BUN 33 H, Creatinine 1.20, Estim Creat Clear Calc 50.67, Est GFR (MDRD) Non-Af 47 L, BUN/Creatinine Ratio 27.3 H, Glucose 130 H, Calcium 9.0 Charges/Coding Visit Charges Inpatient E&M: 96879 Subs Hosp L2 04/21/25 0839 <Electronically signed by Garfield Pierson MD> Cosigner Signature (if applicable): CC: ~ Signed [facility] Work Phone: [phone] 449-966010-19-2025 Progress note Author Reginaldo Fatima [facility] Note Date/Time April 20, 2025 3 :29pm [facility] Medical Records Department [address] [place] [id number] Progress Note - Trimmer Machine Operator 04/20/25 1428 MR#: [id number] Acct: [id number] Name: OSCAR WOO Rep #:[id number] : 1950 75 From: Reginaldo Fatima MD PCP: Dr. Kamar Grimes MD Status:ADM IN Location: ICU CVICU20 1-1 Objective Data Objective Data Vital Signs: Vital Signs Last response 3 Temperature 36.6 C 04/20/25 11:30 Temperature Source Temporal 04/20/25 11:30 Pulse Rate 80 04/20/25 11:30 Pulse Strength Weak (1+) 04/20/25 10:00 Respiratory Rate 20 H 04/20/25 11:30 Respiratory Effort Normal, Non-Labored 04/19/25 22:00 Respiratory Depth Normal 04/19/25 22:00 Respiratory Pattern Normal 04/19/25 22:00 Blood Pressure 113/74 04/20/25 11:30 Blood Pressure Mean 87 04/20/25 11:30 Blood Pressure Source Monitor 04/20/25 11:30 Blood Pressure Position Sitting 04/20/25 11:30 Blood Pressure Location Left Arm 04/20/25 11:30 Pulse Ox 100 04/20/25 11:30 Oxygen Delivery Method Nasal Cannula 04/20/25 13:35 Oxygen Flow Rate (L/min) 2 04/20/25 13:35 I&O: I&O Last 24 Hours 3 04/19/25 04/20/25 04/20/25 23:59 11:59 23:59 Intake Total 2100 / 3300 60 / 300 240 / 300 Output Total 20 / 20 Balance 2080 / 3280 60 / 300 240 / 300 I&O: Total Stay 3 04/18/25 13:41 thru 04/20/25 12:00 Intake Total 3600 Output Total 20 Balance 3580 Current Meds Ordered / Administered: Current meds ordered / Administered 3 Generic Name Dose Route Start Last Admin Trade Name Freq PRN Reason Stop Dose Admin Acetaminophen 650 mg 04/18/25 19:57 Acetaminophen 325 Mg Tablet PO Q6H PRN PRN Pain 1-10 Or Fever>100.7 Albuterol Sulfate 2.5 mg 04/18/25 20:10 Albuterol 2.5 Mg/3 Ml Vial.Neb. INHALATION Q4H PRN shortness of breath or wheezing Aspirin 81 mg 04/18/25 22:00 04/20/25 08:20 Aspirin 81 Mg Tab.Chew PO 81 mg BID KACEY Administration Bupropion HCl 150 mg 04/19/25 10:00 04/20/25 08:21 Bupropion (Xl) 150 Mg Tablet.Xl PO 150 mg DAILY KACEY Administration Carvedilol 3.125 mg 04/18/25 22:00 04/20/25 08:20 Carvedilol 3.125 Mg Tablet PO 3.125 mg BID KACEY Administration Duloxetine HCl 30 mg 04/19/25 10:00 04/20/25 08:21 Duloxetine Hcl 30 Mg Capsule PO 30 mg DAILY KACEY Administration Gabapentin 600 mg 04/18/25 22:00 04/19/25 21:53 Gabapentin 600 Mg Tablet PO 600 mg QHS KACEY Administration Heparin Sodium (Porcine) 5,000 unit 04/18/25 22:00 04/20/25 08:21 Heparin Injection (Vial) 5,000 Unit/Ml Vial SC 5,000 unit Q12 KACEY Administration Sodium Chloride 250 mls @ 15 mls/hr 04/19/25 02:16 IV .[id number] PRN Saline Flush Sodium Chloride 250 mls @ 15 mls/hr 04/19/25 02:16 IV .[id number] PRN Additional IVPB Infusion Melatonin 10 mg 04/18/25 22:00 04/19/25 21:46 Melatonin 10 Mg Tablet PO 10 mg QHS KACEY Administration Midodrine 10 mg 04/20/25 09:00 04/20/25 11:47 Midodrine Hcl 5 Mg Tablet PO Not Given TIDCM KACEY Mirtazapine 15 mg 04/18/25 22:00 04/19/25 21:47 Mirtazapine 15 Mg Tablet PO 15 mg QHS KACEY Administration Ondansetron HCl 4 mg 04/18/25 19:57 Ondansetron 4 Mg/2 Ml Vial IV Q8H PRN PRN NAUSEA/VOMITING Pramipexole Dihydrochloride 0.5 mg 04/18/25 19:57 04/19/25 16:34 Pramipexole Di-Hcl 0.5 Mg Tablet PO 0.5 mg DINNER KACEY Administration Senna/Docusate Sodium 2 tablet 04/19/25 22:00 04/20/25 08:18 Senna/Docusate Sodium 1 Tablet PO Not Given BID KACEY Sodium Chloride 10 - 40 ml 04/19/25 02:16 04/20/25 04:50 0.9% Saline Lock 10 Ml Syringe IV 40 ml UD PRN Administration SALINE FLUSH Sodium Chloride 10 - 40 ml 04/19/25 21:06 0.9% Saline Lock 10 Ml Syringe IV UD PRN SALINE FLUSH Lab / Micro Data Attestation: I reviewed the patient's lab results. 04/20/25 04:45 04/20/25 04:45 Labs: Laboratory Results - last 24 hr 04/19/25 15:05: WBC 8.2, RBC 3.81 L, Hgb 11.3 L, Hct 34.7 L, MCV 91.1, MCH 29.7,MCHC 32.6, RDW Std Deviation 48.4 H, RDW Coeff of Terry 14.5, Plt Count 121 L, MPV10.7, Immature Gran % (Auto) 0.900, Neut % (Auto) 72.5 H, Lymph % (Auto) 15.6 L,Lyon % (Auto) 7.9, Eos % (Auto) 2.7, Baso % (Auto) 0.4, Absolute Neuts (auto) 6.0, Absolute Lymphs (auto) 1.28, Nucleated RBC % 0, Lactic Acid 1.3, Total Creatine Kinase 65 04/19/25 17:20: Sodium 125 L, Potassium 4.3, Chloride 83 L, Carbon Dioxide 33.7 H, Anion Gap 9, BUN 40 H, Creatinine 1.39 H, Estim Creat Clear Calc 43.20 L, EstGFR (MDRD) Non-Af 39 L, BUN/Creatinine Ratio 28.8 H, Glucose 128 H, Calcium 8.8 04/20/25 04:45: WBC 7.5, RBC 3.81 L, Hgb 11.1 L, Hct 34.4 L, MCV 90.3, MCH 29.1,MCHC 32.3, RDW Std Deviation 47.6 H, RDW Coeff of Terry 14.5, Plt Count 115 L, MPV10.5, Immature Gran % (Auto) 0.900, Neut % (Auto) 73.3 H, Lymph % (Auto) 14.8 L,Lyon % (Auto) 7.7, Eos % (Auto) 2.9, Baso % (Auto) 0.4, Absolute Neuts (auto) 5.5, Absolute Lymphs (auto) 1.11, Nucleated RBC % 0, Sodium 125 L, Potassium 4.0, Chloride 83 L, Carbon Dioxide 36.7 H, Anion Gap 5, BUN 39 H, Creatinine 1.31 H, Estim Creat Clear Calc 46.46 L, Est GFR (MDRD) Non-Af 42 L, BUN/Creatinine Ratio 29.4 H, Glucose 113 H, Calcium 9.0 04/20/25 09:35: Urine Color Yellow, Urine Clarity Sl. Cloudy, Urine pH 6.0, Ur Specific [place] 1.010, Urine Protein 30 H, Urine Glucose (UA) 250 H, Urine Ketones Negative, Urine Occult Blood Negative, Urine Nitrite Negative, Urine Bilirubin Negative, Urine Urobilinogen Normal, Ur Leukocyte Esterase Negative, Urine RBC 0 SEEN, Urine WBC 0 SEEN, Ur Squamous Epith Cells 0-5 SEEN, Ur Transition Epith Cell 0-5 SEEN, Urine Bacteria 0 SEEN, Urine Mucus 0 SEEN, UrineOsmolality 263 04/20/25 09:35: Urine Osmolality Cancelled, Ur Random Sodium 34, Urine Opiates Screen NEGATIVE, U Buprenorphine Qual NEGATIVE, Ur Oxycodone Screen NEGATIVE, Urine Methadone Screen NEGATIVE, Urine Fentanyl Screen NEGATIVE, Ur BarbituratesScreen NEGATIVE, Ur Phencyclidine Scrn NEGATIVE, Ur Amphetamines Screen NEGATIVE, U Benzodiazepines Scrn NEGATIVE, Urine Cocaine Screen NEGATIVE, U Cannabinoids Screen NEGATIVE Micro: Microbiology 04/20/25 09:35 Urine, Clean Catch Legionella Antigen - Final 04/20/25 09:35 Urine, Clean Catch Streptococcus pneumoniae Antigen (M - Final 04/19/25 16:10 Nasal Secretion MRSA (PCR) - Final 04/19/25 16:10 Mucosa - Nose SARS-CoV-2, Influenza & RSV (PCR) - Final ABG Data ABG results: ABG 04/19/25 17:28 Specimen Type MARICRUZ Sample Site Not entered O2 % 2.0 VBG pH 7.48 H VBG pO2 133 H VBG HCO3 33 H VBG Total CO2 34 H VBG O2 Sat (Calc) 99 H VBG Base Excess 10 H POC Mix VBG pCO2 Pt Tmp 44.6 O2 Delivery Device Cannula Imaging Radiology Impression Chest X-Ray 04/19/25 14:50 IMPRESSION: Mild pulmonary vascular congestion and question interstitial edema. No focal consolidation. Mild cardiomegaly. Reading Location: [id number] Assessment and Plan . Assessment and plan: 1. hypotension, almost surely volume related due to fluid shifts, resolving quickly with IVF administration - no suggestion of sepsis or other condition warranting more aggressive management at present - resolved 2. hyponatremia, probably hypovolemic, resolving Will sign off, please call with future questions Critical Care Time: The entirety of this encounter was done via Telemedicine Physical Exam Const alert, oriented x3 and no apparent distress General Appearance: cooperative Subjective Subjective Has done well clinically, hemodynamics are satisfactory and her status downgraded 04/20/25 1429 <Electronically signed by Reginaldo Fatima MD> Cosigner Signature (if applicable): CC: ~ Signed [facility] Work Phone: [phone] Progress note Author Garfield Pierson [facility] Note Date/Time April 20, 2025 9 :21am [facility] Medical Records Department [address] [place] [address] Progress Note - Hospitalist 04/20/25725 MR#: [id number] Acct: [id number] Name: OSCAR WOO Rep #:[id number] : 1950 75 From: Garfield Chi PCP: Dr. Kamar Grimes MD Status:ADM IN Location: ICU CVICU 1-1 Reason for Visit Chief Complaint: Worsening hyponatremia and falls Objective Data Objective Data Vital Signs: Vital Signs Temp Pulse Resp BP Pulse Ox O2 Del Method O2 Flow Rate 97.9 F 67 23 H 97/63 97 Nasal Cannula 1 04/20/25 04:00 04/20/25 07:00 04/20/25 07:00 04/20/25 07:00 04/20/25 07:03 04/20/25 07:03 04/20/25 07:03 Oxygen Flow Rate (L/min) 1 Oxygen Delivery Method Nasal Cannula Weight: 240 lb 4.862 oz Body Mass Index (BMI) 37.6 Intake & Output: Intake and Output for Last 24 Hours 04/18/25 04/19/25 04/20/25 23:59 23:59 23:59 Intake Total 3300 / 3300 60 / 60 Output Total Balance 3280 / 3280 60 / 60 Lab / Micro Data 04/20/25 04:45 04/20/25 04:45 Labs: Laboratory Results - last 24 hr 04/19/25 12:44: Serum Osmolality 279 L 04/19/25 15:05: WBC 8.2, RBC 3.81 L, Hgb 11.3 L, Hct 34.7 L, MCV 91.1, MCH 29.7,MCHC 32.6, RDW Std Deviation 48.4 H, RDW Coeff of Terry 14.5, Plt Count 121 L, MPV10.7, Immature Gran % (Auto) 0.900, Neut % (Auto) 72.5 H, Lymph % (Auto) 15.6 L,Lyon % (Auto) 7.9, Eos % (Auto) 2.7, Baso % (Auto) 0.4, Absolute Neuts (auto) 6.0, Absolute Lymphs (auto) 1.28, Nucleated RBC % 0, Lactic Acid 1.3, Total Creatine Kinase 65 04/19/25 17:20: Sodium 125 L, Potassium 4.3, Chloride 83 L, Carbon Dioxide 33.7 H, Anion Gap 9, BUN 40 H, Creatinine 1.39 H, Estim Creat Clear Calc 43.20 L, EstGFR (MDRD) Non-Af 39 L, BUN/Creatinine Ratio 28.8 H, Glucose 128 H, Calcium 8.8 04/20/25 04:45: WBC 7.5, RBC 3.81 L, Hgb 11.1 L, Hct 34.4 L, MCV 90.3, MCH 29.1,MCHC 32.3, RDW Std Deviation 47.6 H, RDW Coeff of Terry 14.5, Plt Count 115 L, MPV10.5, Immature Gran % (Auto) 0.900, Neut % (Auto) 73.3 H, Lymph % (Auto) 14.8 L,Lyon % (Auto) 7.7, Eos % (Auto) 2.9, Baso % (Auto) 0.4, Absolute Neuts (auto) 5.5, Absolute Lymphs (auto) 1.11, Nucleated RBC % 0, Sodium 125 L, Potassium 4.0, Chloride 83 L, Carbon Dioxide 36.7 H, Anion Gap 5, BUN 39 H, Creatinine 1.31 H, Estim Creat Clear Calc 46.46 L, Est GFR (MDRD) Non-Af 42 L, BUN/Creatinine Ratio 29.4 H, Glucose 113 H, Calcium 9.0 Micro: Microbiology 04/19/25 16:10 Nasal Secretion MRSA (PCR) - Final 04/19/25 16:10 Mucosa - Nose SARS-CoV-2, Influenza & RSV (PCR) - Final ABG Data ABG results: ABG 10/18/25 17:28 Specimen Type MARICRUZ Sample Site Not entered O2 % 2.0 VBG pH 7.48 H VBG pO2 133 H VBG HCO3 33 H VBG Total CO2 34 H VBG O2 Sat (Calc) 99 H VBG Base Excess 10 H POC Mix VBG pCO2 Pt Tmp 44.6 O2 Delivery Device Cannula Radiography Diagnostic Testing: Radiology Impression Chest X-Ray 04/19/25 14:50 IMPRESSION: Mild pulmonary vascular congestion and question interstitial edema. No focal consolidation. Mild cardiomegaly. Reading Location: [facility] Physical Exam Narrative Seen and examined Patient feeling mildly confused last night. Was dizzy but feeling much better. Eating her breakfast. Denies chest pain or shortness of breath. Blood pressure is improved, systolic in 100s. Remembers month ER day. She has chronic history of fall since she was a kid as she had polio Physical exam General: Awake, intermittent confusion. Oriented x3, Cooperative HEENT: Atraumatic, PERRLA, EOMI, Normocephalic. Oral: No Gingival or Mucosal Lesions/ Ulcerations Neck: Supple, No JVD, Negative Carotid Bruits Chest wall/Lungs: Air entry diminished in bilateral lung bases. Mild occasional crepitation in left lung base Cardiovascular: Low BP. No M/G/R Abdomen: Bowel Sounds Present, Soft, Non Tender, Non-Distended : No dysuria. No renal angle tenderness. No suprapubic tenderness. Extremities: No edema, Capillary Refill Less than 3 Seconds Skin: Bruise on the right knee Musculoskeletal: Weakness of lower extremities, 4+/5 at knees and hip joints. No Tenderness to Palpation of Joints or Extremities Neurological: Cranial nerves II-XII grossly intact, DTR 2+/4. No acute focal neurological deficit. Psych/Mental Status: Flat affect Assessment & Plan Assessment/Plan (1) Hyponatremia: PLAN: Plan Patient is a 75-year-old female who presented to [facility] ED on 04/18/2025 with worsening hyponatremia and weakness with falls at home. 1. Hyponatremia probably due to diuretic which she had for 2 weeks: ? Admit under inpatient status to PCU. Nephrology consulted. Baseline sodium around 140; remained around 140 during recent complicated hospitalization from 03/18- 03/26. Dropped significantly to sodium 128 on 04/09. Was instructed to discontinue home Lasix on 04/09 but continued until 04/15. Repeat sodium 125 on 04/16 and has continued to worsen to sodium 121 on 04/18. Severe hyperchloremiawith chloride level 71-74 on recent labs. Patient was also on stress dose steroid for 2 days during recent hospitalization. She was recently discharged on 03/24/2025 after management for undifferentiated shock, acute hypoxic and hypercarbic respiratory failure which required ventilator. 04/19: Repeat sodium was 123. Improved 3 mEq. Ctc Operator is consulted. Calculated serum iron 267. Measured serum iron 310. Osmolar gap 43. Unclear etiology. The usual differential diagnosis of increased osmolar gap are methanol, ketoacidosis, lactic acidosis, ethylene glycol, propylene glycol, isopropanol. Repeat the serum osmolarity and osmolar gap. VBG ordered. 04/20: VBG 7.48/mixed pCO2 44, PaO2 133/bicarb 33/34. Bicarb and BMP was also 33.7. Anion gap 9. Sodium is still low 125 x 2. CPK 25. Lactic acid 1.3. Serum osmolality 279 which seems more appropriate than earlier reported 310. Calculated on repeat BMP 04/19 271, osmolar gap 8.0 which is in normal range.UA negative, hCG 1.015, protein 30. Ctc Operator on board 2. ELVIA with mild hyperkalemia, severe non-anion gap metabolic acidosis, severe hypochloremia ? Nephrology consulted as above. Creatinine 1.30, potassium 5.4 on admit. Baseline creatinine around 0.7-0.8. Bicarb 42. Chloride level 71-74 on recent labs as above. Notably creatinine was 1.6-1.9 on recent labs and has improved to 1.30 with discontinuing home Lasix and losartan. Suspect prerenal etiology due to overdiuresis. 04/19: Continue holding Lasix, losartan, indapamide and spironolactone. SevereNAGMA is presumed secondary to chronic respiratory failure as below. 04/20: Creatinine 1.31. BUN 39, BUN/creatinine ratio 29.4 still high 3. 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 Patient with recent complicated hospitalization and required intubation for combined respiratory failure from 03/18-03/20. Was discharged home on 2 L nasal cannula at rest and 3 L with exertion. Has suspected NEEL and recommendation wasfor outpatient workup for this which has not been completed yet. Stable on 2 L nasal cannula at rest in the ED. Monitor. Continue home albuterol inhaler as needed. 04/20: Rib chest x-ray reviewed shows mild pulmonary vascular congestion and bibasilar atelectasis but no obvious shortness of breath. Continue incentive spirometry and PEP for 1 week 4. Chronic HFpEF, hypertension ? Echo during recent hospitalization on 03/19 showed EF 75%, moderate concentric LV hypertrophy, no other concerning findings. Mildly hypertensive to the 140s systolic in the ED. Holding home Lasix, losartan, indapamide and spironolactoneas above. Okay to continue home Coreg. 5. Acute on chronic debility with recent falls ? PT/OT/case management consulted. Patient lives at home alone. She was able to be discharged home with home health care after recent prolonged hospitalization. Has had worsening functional status with small falls over the past week or so per family. Appreciate therapy recommendations. 6. Anxiety, depression, insomnia, restless leg syndrome, neuropathy ? Continue home bupropion, duloxetine, gabapentin, pramipexole, mirtazapine and melatonin. 7. Class II obesity ? BMI 36 on admit. Complicates hospital course and care. DVT prophylaxis: Heparin subcu CODE STATUS: DNR CCA, okay to intubate Total time of the visit including total time spent in counseling or coordinationof care, (more than 50% of the total time, spent in obtaining medical information from nurses and other ancillary care providers ,explaining to the patient about labs, imaging, diagnosis and management of active complex medical conditions), management of hypotension, severe hyponatremia, review of labs and imaging is 35 minutes. Charges/Coding Visit Charges Inpatient E&M: 96307 Subs Hosp L3 04/20/25 0821 <Electronically signed by Garfield Pierson MD> Cosigner Signature (if applicable): CC: ~ Signed [facility] Work Phone: [phone] Consult note Author Reginaldo Fatima [facility] Note Date/Time April 19, 2025 7 :01pm [facility] Medical Records Department [address] [place] [address] Consultation - Trimmer Machine Operator 04/19/25 1750 MR#: [id number] Acct: [id number] Name: OSCAR WOO Rep #:[id number] : 1950 75 From: Reginaldo Fatima MD PCP: Dr. Kamar Grimes MD Status:ADM IN Location: ICU CVICU20 1-1 HPI Consult Data Date of Consult: 04/19/25 HPI Narrative Reason for Consultation: hypotension HPI Narrative: OSCAR WOO, is a 75 F who presents [ with falls, presyncope/ dizziness after having started furosemide 2 weeks ago- of note she was instructed to stop the furosemide and eventually did so 3 days ago but her serum sodium had continued to drop during outpatient monitoring and she was ultimately admitted to the hospital. She reports that during this time she has been exceptionally thirsty but only noted excessive urinating while taking the diuretic. She also states she would take Ensure or something similar as much as possible over past several days- to weeks making clear she didn't just drink water during this period of excessive thirst. She was initially placed on regular hospital room but subsequently transferred to ICU for closer monitoring when he blood pressure dipped low. She received ~ 2000 mL of crystalloid IVF and has not required vasopressors. Currently she states she feels better, denies SOB but her brain still seems "foggy". 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 Essential (primary) hypertension Debility Infection and inflammatory reaction due to other [...] mg tablet 10 mg PO QHS INSOMNIA 04/17/25 History bupropion HCl 300 mg 24 hr tablet, 150 mg PO DAILY DEP RESSION 06/11/20 04/18/25 History extended release gabapentin 600 mg tablet 600 mg PO QHS SLEEP 06/11/20 04/17/25 History mirtazapine 15 mg tablet 15 mg PO QHS INSOMNIA 04/17/25 History duloxetine 30 mg capsule,delayed 30 mg PO DAILY DEPRES RAHEEM 09/11/24 04/18/25 History release (Cymbalta) aspirin 81 mg chewable tablet 81 mg PO BID blood thinn er #0 tabs 09/17/24 04/18/25 Rx loperamide 2 mg capsule 2 mg PO Q2H PRN PRN DIARRHEA #0 09/17/24 Unknown Rx caps albuterol sulfate 90 mcg/actuation 2 inh inhalation Q4 H PRN shortness 03/18/25 Unknown History aerosol inhaler of breath or wheezing doxycycline hyclate 100 mg capsule 100 mg PO BID abx 0 03/18/25 04/18/25 History indapamide 2.5 mg tablet 2.5 mg PO DAILY diuretic Unknown History naproxen sodium 220 mg tablet 440 mg PO DAILY PRN pain 03/18/25 Unknown History potassium citrate 10 mEq (1,080 10 meq PO DAILY Unknown History mg) tablet,extended release pramipexole 1 mg tablet 1 mg PO QHS restless leg Unknown History spironolactone 50 mg tablet 50 mg PO DAILY diuretic 04/18/25 History carvedilol 3.125 mg tablet 1.56 mg PO BID bp 04/16/25 04/18/25 History lactobacillus combination no.9 4 4,000 mmu cells PO QD AY GI health 04/16/25 Unknown History billion cell capsule (Adult 50 Plus Probiotic) ondansetron HCl 4 mg tablet 4 mg PO Q8 PRN nausea and vomiting 04/16/25 Unknown History pramipexole 0.5 mg tablet 0.5 mg PO DINNER RLS 5 Unknown History Allergy/AdvReac Type Severity Reaction Status Date / Time Penicillins Allergy Anaphylaxis Verified 04/18/25 13:45 Family History Mother Heart disease Diabetes Brother Heart disease Diabetes Brother Heart disease pacemaker Sister Atrial fibrillation Surgical History History of reverse total replacement [...] household members: none Smoking Status: Former smoker how long ago did patient quit smokin years ago alcohol intake: never substance use type: does not use caffeine: No ROS Constitutional Constitutional: Reports systems reviewed and no addt'l complaints, except as documented Eyes Eyes: Reports systems reviewed and no addt'l complaints, except as documented ENT HEENT: Reports systems reviewed and no addt'l complaints, except as documented Cardiovascular Cardiovascular: Reports systems reviewed and no addt'l complaints, except as documented and as per HPI Respiratory/Chest Respiratory/Chest: Reports systems reviewed and no addt'l complaints, except as documented and as per HPI Objective Data Objective Data Vital Signs: Vital Signs Last response 3 Temperature 36.3 C L 04/19/25 15:30 Temperature Source Temporal 04/19/25 15:30 Pulse Rate 89 04/19/25 17:30 Pulse Strength Weak (1+) 04/19/25 09:27 Respiratory Rate 18 04/19/25 17:30 Respiratory Effort Normal, Non-Labored 04/19/25 16:25 Respiratory Depth Normal 04/19/25 16:25 Respiratory Pattern Normal 04/19/25 16:25 Blood Pressure 100/56 L 04/19/25 17:30 Blood Pressure Mean 70 04/19/25 17:30 Blood Pressure Source Monitor 04/19/25 17:30 Blood Pressure Position Semi-Fowlers 04/19/25 17:30 Blood Pressure Location Right Arm 04/19/25 17:30 Pulse Ox 93 04/19/25 17:30 Oxygen Delivery Method Nasal Cannula 04/19/25 17:30 Oxygen Flow Rate (L/min) 2 04/19/25 17:30 I&O: I&O Last 24 Hours 3 04/18/25 04/19/25 04/19/25 23:59 11:59 23:59 Intake Total 1200 / 3300 2100 / 3300 Output Total 0 / 20 20 / 20 Balance 1200 / 3280 2080 / 3280 I&O: Total Stay 3 04/18/25 13:41 thru 04/19/25 14:40 Intake Total 3300 Output Total 20 Balance 3280 Current Meds Ordered / Administered: Current meds ordered / Administered 3 Generic Name Dose Route Start Last Admin Trade Name Dimitrios PRN Reason Stop Dose Admin Acetaminophen 650 mg 04/18/25 19:57 Acetaminophen 325 Mg Tablet PO Q6H PRN PRN Pain 1-10 Or Fever>100.7 Albuterol Sulfate 2.5 mg 04/18/25 20:10 Albuterol 2.5 Mg/3 Ml Vial.Neb. INHALATION Q4H PRN shortness of breath or wheezing Aspirin 81 mg 04/18/25 22:00 04/19/25 08:10 Aspirin 81 Mg Tab.Chew PO 81 mg BID KACEY Administration Bupropion HCl 150 mg 04/19/25 10:00 04/19/25 08:11 Bupropion (Xl) 150 Mg Tablet.Xl PO 150 mg DAILY KACEY Administration Carvedilol 3.125 mg 04/18/25 22:00 04/19/25 08:10 Carvedilol 3.125 Mg Tablet PO 3.125 mg BID KACEY Administration Duloxetine HCl 30 mg 04/19/25 10:00 04/19/25 08:10 Duloxetine Hcl 30 Mg Capsule PO 30 mg DAILY KACEY Administration Gabapentin 600 mg 04/18/25 22:00 04/18/25 21:10 Gabapentin 600 Mg Tablet PO 600 mg QHS KACEY Administration Heparin Sodium (Porcine) 5,000 unit 04/18/25 22:00 04/19/25 08:09 Heparin Injection (Vial) 5,000 Unit/Ml Vial SC 5,000 unit Q12 KACEY Administration Sodium Chloride 250 mls @ 15 mls/hr 04/19/25 02:16 IV .[id number] PRN Saline Flush Sodium Chloride 250 mls @ 15 mls/hr 04/19/25 02:16 IV .[id number] PRN Additional IVPB Infusion Melatonin 10 mg 04/18/25 22:00 04/18/25 21:14 Melatonin 10 Mg Tablet PO 10 mg QHS KACEY Administration Mirtazapine 15 mg 04/18/25 22:00 04/18/25 21:15 Mirtazapine 15 Mg Tablet PO 15 mg QHS KACEY Administration Ondansetron HCl 4 mg 04/18/25 19:57 Ondansetron 4 Mg/2 Ml Vial IV Q8H PRN PRN NAUSEA/VOMITING Pramipexole Dihydrochloride 0.5 mg 04/18/25 19:57 04/19/25 16:34 Pramipexole Di-Hcl 0.5 Mg Tablet PO 0.5 mg DINNER KACEY Administration Senna/Docusate Sodium 2 tablet 04/19/25 22:00 Senna/Docusate Sodium 1 Tablet PO BID KACEY Sodium Chloride 10 - 40 ml 04/19/25 02:16 0.9% Saline Lock 10 Ml Syringe IV UD PRN SALINE FLUSH Physical Exam Const alert and oriented x3 General Appearance: cooperative Orientation / Consciousness: awake, oriented to person, oriented to place and oriented to time Exam Limitations: no limitations HEENT normocephalic Eyes PERRL and EOMs intact bilaterally Neck no JVD Lab / Micro Data Attestation: I reviewed the patient's lab results. 04/19/25 15:05 04/19/25 17:20 Labs: Laboratory Results - last 24 hr 04/18/25 19:42: Serum Osmolality 310 H 04/19/25 03:55: POC Glucose 108 H 04/19/25 06:33: WBC 7.7, RBC 4.11 L, Hgb 12.1, Hct 36.7 L, MCV 89.3, MCH 29.4, MCHC 33.0, RDW Std Deviation 47.1 H, RDW Coeff of Terry 14.3, Plt Count 129 L, MPV 10.6, Sodium 123 L, Potassium 4.4, Chloride 78 L, Carbon Dioxide 40.9 H, Anion Gap 4 L, BUN 41 H, Creatinine 1.33 H, Estim Creat Clear Calc 45.15 L, Est GFR (MDRD) Non-Af 41 L, BUN/Creatinine Ratio 30.5 H, Glucose 105 H, Calcium 9.4, Triglycerides 125, Cholesterol 206 H, LDL Cholesterol, Calc 113, VLDL Cholesterol 25, HDL Cholesterol 71, Cholesterol/HDL Ratio 2.89, Cortisol AM Sample 18.40 04/19/25 12:44: Serum Osmolality 279 L 04/19/25 15:05: WBC 8.2, RBC 3.81 L, Hgb 11.3 L, Hct 34.7 L, MCV 91.1, MCH 29.7, MCHC 32.6, RDW Std Deviation 48.4 H, RDW Coeff of Terry 14.5, Plt Count 121 L, MPV 10.7, Immature Gran % (Auto) 0.900, Neut % (Auto) 72.5 H, Lymph % (Auto) 15.6 L, Lyon % (Auto) 7.9, Eos % (Auto) 2.7, Baso % (Auto) 0.4, Absolute Neuts (auto) 6.0, Absolute Lymphs (auto) 1.28, Nucleated RBC % 0, Lactic Acid 1.3, Total Creatine Kinase 65 04/19/25 17:20: Sodium 125 L, Potassium 4.3, Chloride 83 L, Carbon Dioxide 33.7 H, Anion Gap 9, BUN 40 H, Creatinine 1.39 H, Estim Creat Clear Calc 43.20 L, Est GFR (MDRD) Non-Af 39 L, BUN/Creatinine Ratio 28.8 H, Glucose 128 H, Calcium 8.8 Micro: Microbiology 04/19/25 16:10 Mucosa - Nose SARS-CoV-2, Influenza & RSV (PCR) - Final ABG Data ABG results: ABG 04/19/25 17:28 Specimen Type MARICRUZ Sample Site Not entered O2 % 2.0 VBG pH 7.48 H VBG pO2 133 H VBG HCO3 33 H VBG Total CO2 34 H VBG O2 Sat (Calc) 99 H VBG Base Excess 10 H POC Mix VBG pCO2 Pt Tmp 44.6 O2 Delivery Device Cannula Imaging Radiology Impression Chest X-Ray 04/19/25 14:50 IMPRESSION: Mild pulmonary vascular congestion and question interstitial edema. No focal consolidation. Mild cardiomegaly. Reading Location: [facility] Assessment and Plan . Assessment and plan: Assessment/ Plan: 1. hypotension, almost surely volume related due to fluid shifts, resolving quickly with IVF administration - no suggestion of sepsis or other condition warranting more aggressive management at present 2. hyponatremia, probably hypovolemic Suggest: 1. continued ICU monitoring overnight is reasonable 2. sodium management as currently planned by hospitlaist team- Nephrology input awaited 3. standard ICU prophylaxis is appropriate Critical Care Time: 60 minutes The entirety of this encounter was done via Telemedicine 04/19/25 7430 <Electronically signed by Reginaldo Fatima MD> Cosigner Signature (if applicable): CC: Dr. Kamar Grimes MD~ Signed [facility] Work Phone: [phone]) 844-798210-18-2025 Progress note Author Garfield Pierson [facility] Note Date/Time April 19, 2025 5 :45pm [facility] Medical Records Department [address] [place] [address] Progress Note - Hospitalist 04/19/25 1137 MR#: [id number] Acct: [id number] Name: OSCAR WOO Rep #:[id number] : 1950 75 From: Garfield Chi PCP: Dr. Kamar Grimes MD Status:ADM IN Location: ICU CVICU20 07-03 Reason for Visit Chief Complaint: Worsening hyponatremia and falls Objective Data Objective Data Vital Signs: Vital Signs Temp Pulse Resp BP Pulse Ox O2 Del Method O2 Flow Rate 98.1 F 68 17 107/67 94 Nasal Cannula 2 04/19/25 08:00 04/19/25 08:00 04/19/25 08:00 04/19/25 08:00 04/19/25 08:00 04/19/25 09:27 04/19/25 09:27 Oxygen Flow Rate (L/min) 2 Oxygen Delivery Method Nasal Cannula Weight: 234 lb 5.622 oz Body Mass Index (BMI) 36.7 Intake & Output: Intake and Output for Last 24 Hours 04/17/25 04/18/25 04/19/25 23:59 23:59 23:59 Intake Total 1200 / 1200 Output Total 0 / 0 Balance 1200 / 1200 Lab / Micro Data 04/19/25 15:05 04/19/25 06:33 Labs: Laboratory Results - last 24 hr 04/18/25 14:05: WBC 10.0, RBC 4.49, Hgb 13.1, Hct 40.0, MCV 89.1, MCH 29.2, MCHC32.8, RDW Std Deviation 45.1 H, RDW Coeff of Terry 13.9, Plt Count 160, MPV 11.7, Immature Gran % (Auto) 0.600, Neut % (Auto) 77.8 H, Lymph % (Auto) 10.9 L, Lyon % (Auto) 8.9, Eos % (Auto) 1.6, Baso % (Auto) 0.2, Absolute Neuts (auto) 7.8 H, Absolute Lymphs (auto) 1.09, Nucleated RBC % 0, Sodium 121 L, Potassium 5.4 H, Chloride 73 L*, Carbon Dioxide 42.5 H, Anion Gap 6, BUN 53 H, Creatinine 1.30 H, Estim Creat Clear Calc 46.24 L, Est GFR (MDRD) Non- Af 43 L, BUN/Creatinine Ratio 40.9 H, Glucose 102 H, Calcium 9.7, Total Bilirubin 0.41, AST 50 H, ALT 32, Alkaline Phosphatase 123 H, Total Protein 6.6,Albumin 3.7, Globulin 3.0, Albumin/Globulin Ratio 1.2 04/18/25 19:42: Serum Osmolality 310 H 04/19/25 03:55: POC Glucose 108 H 04/19/25 06:33: WBC 7.7, RBC 4.11 L, Hgb 12.1, Hct 36.7 L, MCV 89.3, MCH 29.4, MCHC 33.0, RDW Std Deviation 47.1 H, RDW Coeff of Terry 14.3, Plt Count 129 L, MPV10.6, Sodium 123 L, Potassium 4.4, Chloride 78 L, Carbon Dioxide 40.9 H, Anion Gap 4 L, BUN 41 H, Creatinine 1.33 H, Estim Creat Clear Calc 45.15 L, Est GFR (MDRD) Non-Af 41 L, BUN/Creatinine Ratio 30.5 H, Glucose 105 H, Calcium 9.4, Triglycerides 125, Cholesterol 206 H, LDL Cholesterol, Calc 113, VLDL Cholesterol 25, HDL Cholesterol 71, Cholesterol/HDL Ratio 2.89, Cortisol AM Sample 18.40 Physical Exam Narrative Seen and examined Patient feeling dizzy a currently patient is hypotensive with blood pressure systolic 80s a nd states vertigo. She is feeling weak. She was on diuretic for2 weeks. Admitted with fall and hyponatremia. Around noon time she has hypotension, 80/62, 77/55 and patient was given 2 L IV bolus and then his BP was71/42 thereafter 1 L Ringer lactate bolus was ordered and patient transferred to ICU for further care. She has chronic history of fall since she was a kid as she had polio Physical exam General: Alert, Oriented x3, Cooperative HEENT: Atraumatic, PERRLA, EOMI, Normocephalic. Oral: No Gingival or Mucosal Lesions/ Ulcerations Neck: Supple, No JVD, Negative Carotid Bruits Chest wall/Lungs: Air entry diminished in bilateral lung bases. No crepitation/rhonchi Cardiovascular: Hypotension, low volume heart sounds no M/G/R Abdomen: Bowel Sounds Present, Soft, Non Tender, Non-Distended : No dysuria. No renal angle tenderness. No suprapubic tenderness. Extremities: No edema, Capillary Refill Less than 3 Seconds Skin: Bruise on the right knee Musculoskeletal: Weakness of lower extremities. No Tenderness to Palpation of Joints or Extremities Neurological: Cranial nerves II-XII grossly intact, DTR 2+/4. No acute focal neurological deficit. Psych/Mental Status: Flat affect Assessment & Plan Assessment/Plan (1) Hyponatremia: PLAN: Plan Patient is a 75-year-old female who presented to [facility] ED on 04/18/2025 with worsening hyponatremia and weakness with falls at home. 1. Hyponatremia probably due to diuretic which she had for 2 weeks: ? Admit under inpatient status to PCU. Nephrology consulted. Baseline sodium around 140; remained around 140 during recent complicated hospitalization from 03/18- 03/26. Dropped significantly to sodium 128 on 04/09. Was instructed to discontinue home Lasix on 04/09 but continued until 04/15. Repeat sodium 125 on 04/16 and has continued to worsen to sodium 121 on 04/18. Severe hyperchloremiawith chloride level 71-74 on recent labs. Patient was also on stress dose steroid for 2 days during recent hospitalization. She was recently discharged on 03/24/2025 after management for undifferentiated shock, acute hypoxic and hypercarbic respiratory failure which required ventilator. 04/19: Repeat sodium was 123. Improved 3 mEq. Ctc Operator is consulted. Calculated serum iron 267. Measured serum iron 310. Osmolar gap 43. Unclear etiology. The usual differential diagnosis of increased osmolar gap are methanol, ketoacidosis, lactic acidosis, ethylene glycol, propylene glycol, isopropanol. Repeat the serum osmolarity and osmolar gap. VBG ordered. 2. ELVIA with mild hyperkalemia, severe non-anion gap metabolic acidosis, severe hypochloremia ? Nephrology consulted as above. Creatinine 1.30, potassium 5.4 on admit. Baseline creatinine around 0.7-0.8. Bicarb 42. Chloride level 71-74 on recent labs as above. Notably creatinine was 1.6-1.9 on recent labs and has improved to 1.30 with discontinuing home Lasix and losartan. Suspect prerenal etiology due to overdiuresis. 04/19: Continue holding Lasix, losartan, indapamide and spironolactone. SevereNAGMA is presumed secondary to chronic respiratory failure as below. 3. 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 Patient with recent complicated hospitalization and required intubation for combined respiratory failure from 03/18-03/20. Was discharged home on 2 L nasal cannula at rest and 3 L with exertion. Has suspected NEEL and recommendation wasfor outpatient workup for this which has not been completed yet. Stable on 2 L nasal cannula at rest in the ED. Monitor. Continue home albuterol inhaler as needed. 4. Chronic HFpEF, hypertension ? Echo during recent hospitalization on 03/19 showed EF 75%, moderate concentric LV hypertrophy, no other concerning findings. Mildly hypertensive to the 140s systolic in the ED. Holding home Lasix, losartan, indapamide and spironolactoneas above. Okay to continue home Coreg. 5. Acute on chronic debility with recent falls ? PT/OT/case management consulted. Patient lives at home alone. She was able to be discharged home with home health care after recent prolonged hospitalization. Has had worsening functional status with small falls over the past week or so per family. Appreciate therapy recommendations. 6. Anxiety, depression, insomnia, restless leg syndrome, neuropathy ? Continue home bupropion, duloxetine, gabapentin, pramipexole, mirtazapine and melatonin. 7. Class II obesity ? BMI 36 on admit. Complicates hospital course and care. DVT prophylaxis: Heparin subcu CODE STATUS: DNR CCA, okay to intubate Total time of the visit including total time spent in counseling or coordinationof care, (more than 50% of the total time, spent in obtaining medical information from nurses and other ancillary care providers ,explaining to the patient about labs, imaging, diagnosis and management of active complex medical conditions), management of hypotension, severe hyponatremia, review of labs and imaging is 35 minutes. Charges/Coding Visit Charges Inpatient E&M: 56955 Subs Hosp L3 04/19/25 2879 <Electronically signed by Garfield Pierson MD> Cosigner Signature (if applicable): CC: ~ Signed [facility] Work Phone: [phone]) 816-625010-18-2025 Progress note Author Keya Basilio [facility] Note Date/Time April 19, 2025 5 :34pm [facility] Medical Records Department [address] [place] [address] Progress Note 04/19/25 1633 MR#: [id number] Acct: [id number] Name: OSCAR WOO Rep #:[id number] : 1950 75 From: Keya kendrick MD PCP: Dr. Kamar Grimes MD Status:ADM IN Location: ICU CVICU 07-03 Progress Note attempted to see earlier. was not in room. chart reviewed. normal baseline sodium. hyponatremia, hypochloremia, likely volume depletion. 04/19/25 1634 <Electronically signed by Keya Basilio MD> Keya Basilio MD Cosigner Signature (if applicable): CC: ~ Signed [facility] Work Phone: 1(585) 553-967810-18-2025 Radiology Diagnostic study [facility]10-18-2025 Radiology Diagnostic study [facility]10-18-2025 History and physical note Author Jermaine [facility] Note Date/Time April 18, 2025 1 1:05pm [facility] Medical Records Department [address] [place] [address] H&P Exam - Hospitalist 04/18/25 1717 MR#: [id number] Acct: [id number] Name: OSCAR WOO Rep #:[id number] : 1950 75 From: Jermaine cardona DO PCP: Dr. Kamar Grimes MD Status:ADM [facility] - General General Date of Admission: 04/18/25 Date of Service: 04/18/25 Chief Complaint: Worsening hyponatremia and falls HPI Narrative OSCAR WOO, is a 75 F who presented to [facility] on 04/18/2025 with worsening hyponatremia and falls at home. Patient lives at [facility]. Medical history significant for class II obesity with NEEL, chronic HFpEF, hypertension, anxiety/depression and restless leg syndrome. Patient was recently hospitalized here from 03/18-03/26 for acute combined respiratory failureand undifferentiated shock. Was suspected undiagnosed sleep apnea was contributing to the respiratory failure. She did require 2 L nasal cannula at rest and 3 with exertion on discharge. She did have generalized weakness duringthe hospitalization but was able to be discharged home with home health care. Notably a peer to peer was done for SNF per the patient request but this was denied. Patient had BMP ordered by her PCP drawn on 04/09 that showed sodium 128, chloride 71, bicarb 46, creatinine 1.61 (baseline 0.7-0.8). Her PCP instructed her to discontinue Lasix and losartan but she continue these until 04/15. Repeat BMP was drawn 04/16 that showed sodium 125, chloride 74, bicarb 44, creatinine 1.91. She saw Dr. Reddy with cardiology in the office on 04/16 who recommended the patient continue to hold Lasix and losartan. Family noted that patient has been weaker recently and has had a few falls at home with bruising on her legs, so they brought her to the ED for further evaluation. Repeat BMP today showed sodium 121, potassium 5.4, chloride 73, bicarb 42, creatinine 1.30. Given her worsening hyponatremia and weakness with falls at home, hospitalist was contacted for admission. I saw the patient at bedside in the ED. Patient was fatigued appearing but otherwise laying back comfortably in bed and in no acute distress. She was answering questions appropriately for me. Noted that she has been drinking significant amounts of water recently because she has been so thirsty from the diuretic. She has not taken the diuretic since 04/15 but continues to feel quite thirsty. Notes that she has not felt very hungry and does not eat very much. She does feel quite weak in her legs and does not feel comfortable ambulating without assistance. No other acute concerns currently. Will be admitted for further management. 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 Essential (primary) hypertension Debility Infection and inflammatory reaction due to other [...] mg tablet 10 mg PO QHS INSOMNIA 04/17/25 History bupropion HCl 300 mg 24 hr tablet, 150 mg PO DAILY DEP RESSION 06/11/20 04/18/25 History extended release gabapentin 600 mg tablet 600 mg PO QHS SLEEP 06/11/20 04/17/25 History mirtazapine 15 mg tablet 15 mg PO QHS INSOMNIA 04/17/25 History duloxetine 30 mg capsule,delayed 30 mg PO DAILY DEPRES RAHEEM 09/11/24 04/18/25 History release (Cymbalta) aspirin 81 mg chewable tablet 81 mg PO BID blood thinn er #0 tabs 09/17/24 04/18/25 Rx loperamide 2 mg capsule 2 mg PO Q2H PRN PRN DIARRHEA #0 09/17/24 Unknown Rx caps albuterol sulfate 90 mcg/actuation 2 inh inhalation Q4 H PRN shortness 03/18/25 Unknown History aerosol inhaler of breath or wheezing doxycycline hyclate 100 mg capsule 100 mg PO BID abx 0 03/18/25 04/18/25 History indapamide 2.5 mg tablet 2.5 mg PO DAILY diuretic Unknown History naproxen sodium 220 mg tablet 440 mg PO DAILY PRN pain 03/18/25 Unknown History potassium citrate 10 mEq (1,080 10 meq PO DAILY Unknown History mg) tablet,extended release pramipexole 1 mg tablet 1 mg PO QHS restless leg Unknown History spironolactone 50 mg tablet 50 mg PO DAILY diuretic 04/18/25 History carvedilol 3.125 mg tablet 1.56 mg PO BID bp 04/16/25 04/18/25 History lactobacillus combination no.9 4 4,000 mmu cells PO QD AY GI health 04/16/25 Unknown History billion cell capsule (Adult 50 Plus Probiotic) magnesium aspart,citrate,oxide mg PO supplement (?) Unknown History ondansetron HCl 4 mg tablet 4 mg PO Q8 PRN nausea and vomiting 04/16/25 Unknown History pramipexole 0.5 mg tablet 0.5 mg PO DINNER RLS 5 Unknown History Allergy/AdvReac Type Severity Reaction Status Date / Time Penicillins Allergy Anaphylaxis Verified 04/18/25 13:45 Family History Mother Heart disease Diabetes Brother Heart disease Diabetes Brother Heart disease pacemaker Sister Atrial fibrillation Surgical History History of reverse total replacement [...] household members: none Smoking Status: Former smoker how long ago did patient quit smokin years ago alcohol intake: never substance use type: does not use caffeine: No ROS Constitutional Constitutional: Reports fatigue and weakness; Denies chills or fever(s) Eyes Eyes: Denies change in vision Cardiovascular Cardiovascular: Denies chest pain Respiratory/Chest Respiratory/Chest: Denies shortness of breath at rest Gastrointestinal Gastrointestinal: Denies abdominal pain, nausea or vomiting Genitourinary Genitourinary: Denies dysuria Musculoskeletal Musculoskeletal: Denies arthralgias or myalgias Neurologic Neurologic: Denies dizziness, focal weakness, headache(s), numbness or tingling Vital Signs Vital Signs Vital Signs: 04/18/25 13:42 04/18/25 14:17 04/18/25 14:57 Temperature 98.6 F Temperature Source Oral Pulse Rate 84 83 Pulse Rate [Lying] Pulse Rate [Sitting (for 1 minute prior to obtaining)] Respiratory Rate 30 H 18 Respiratory Effort Normal Non-Labored Respiratory Pattern Normal Blood Pressure 143/78 H 120/85 H Blood Pressure [Lying] Blood Pressure [Sitting (for 1 minute prior to obtaining)] Blood Pressure Mean 99 96 Blood Pressure Mean [Lying] Blood Pressure Mean [Sitting (for 1 minute prior to obtaining)] Pulse Ox 97 95 Oxygen Delivery Method Room Air Nasal Cannula Oxygen Flow Rate (L/min) 2 04/18/25 15:00 04/18/25 15:28 04/18/25 16:00 Temperature Temperature Source Pulse Rate 84 84 Pulse Rate [Lying] 82 Pulse Rate [Sitting (for 1 minute prior to obtaining)] 86 Respiratory Rate 24 H 30 H Respiratory Effort Respiratory Pattern Blood Pressure 140/103 H 151/101 H Blood Pressure [Lying] 150/75 H Blood Pressure [Sitting (for 1 minute prior to obtaining)] 151/101 H Blood Pressure Mean 115 117 Blood Pressure Mean [Lying] 100 Blood Pressure Mean [Sitting (for 1 minute prior to obtaining)] 117 Pulse Ox 97 97 Oxygen Delivery Method Nasal Cannula Nasal Cannula Oxygen Flow Rate (L/min) 2 2 Weight Weight: 106.5 kg Body Mass Index (BMI) 36.8 Physical Exam Const alert, oriented x3 and no apparent distress Constitutional Narrative: Elderly female, class II obesity, fatigued appearing but otherwise sitting back fairly comfortably in bed, answering questions appropriately, in no acute distress. General Appearance: cooperative and comfortable HEENT normocephalic, head/scalp atraumatic, hearing grossly normal bilaterally, nasal mucous membranes and turbinates normal and moist oral mucous membranes Eyes PERRL, EOMs intact bilaterally and conjunctivae normal Neck full ROM Chest inspection of chest normal Resp normal respiratory effort, normal air movement, no use of accessory muscles and clear to auscultation bilaterally Cardio regular rate, regular rhythm, no murmurs and peripheral pulses 2+ throughout GI normal to inspection, nondistended, normoactive bowel sounds, soft to palpation,non-tender and non-distended Back/Spine normal ROM Extremity normal to inspection and no pedal edema Skin no rashes or lesions noted Neuro Neuro Narrative: Generalized lower extremity weakness noted. Psych mental status grossly normal Results Lab / Micro Data 04/18/25 14:05 04/18/25 14:05 Labs: Laboratory Results - last 24 hr 04/18/25 14:05: WBC 10.0, RBC 4.49, Hgb 13.1, Hct 40.0, MCV 89.1, MCH 29.2, MCHC32.8, RDW Std Deviation 45.1 H, RDW Coeff of Terry 13.9, Plt Count 160, MPV 11.7, Immature Gran % (Auto) 0.600, Neut % (Auto) 77.8 H, Lymph % (Auto) 10.9 L, Lyon % (Auto) 8.9, Eos % (Auto) 1.6, Baso % (Auto) 0.2, Absolute Neuts (auto) 7.8 H, Absolute Lymphs (auto) 1.09, Nucleated RBC % 0, Sodium 121 L, Potassium 5.4 H, Chloride 73 L*, Carbon Dioxide 42.5 H, Anion Gap 6, BUN 53 H, Creatinine 1.30 H, Estim Creat Clear Calc 46.24 L, Est GFR (MDRD) Non-Af 43 L, BUN/Creatinine Ratio40.9 H, Glucose 102 H, Calcium 9.7, Total Bilirubin 0.41, AST 50 H, ALT 32, Alkaline Phosphatase 123 H, Total Protein 6.6, Albumin 3.7, Globulin 3.0, Albumin/Globulin Ratio 1.2 Assessment & Plan Assessment/Plan (1) Hyponatremia: PLAN: Plan Patient is a 75-year-old female who presented to [facility] ED on 04/18/2025 with worsening hyponatremia and weakness with falls at home. 1. Hyponatremia ? Admit under inpatient status to PCU. Nephrology consulted. Baseline sodium around 140; remained around 140 during recent complicated hospitalization from 03/18- 03/26. Dropped significantly to sodium 128 on 04/09. Was instructed to discontinue home Lasix on 04/09 but continued until 04/15. Repeat sodium 125 on 04/16 and has continued to worsen to sodium 121 on 04/18. Severe hyperchloremiawith chloride level 71-74 on recent labs. Home Lasix would seem to be a significant contributor. Patient reports drinking significant amounts of water for the past week or two due to feeling dehydrated so this may be contributing. Reports fairly poor food intake over that time. Notably patient was on stress dose steroids for 4 days during recent hospitalization; seems less likely but cannot rule out some degree of adrenal insufficiency. A.m. cortisol level ordered. Serum osmolality, urine osmolality and urine sodium ordered. Will give 1 L of normal saline over 4 hours this evening. Follow-up a.m. BMP. Appreciate further nephrology recommendations. 2. ELVIA with mild hyperkalemia, severe non-anion gap metabolic acidosis, severe hypochloremia ? Nephrology consulted as above. Creatinine 1.30, potassium 5.4 on admit. Baseline creatinine around 0.7-0.8. Bicarb 42. Chloride level 71-74 on recent labs as above. Notably creatinine was 1.6-1.9 on recent labs and has improved to 1.30 with discontinuing home Lasix and losartan. Suspect prerenal etiology due to overdiuresis. Given 1 L of IV fluids on admit as above. Hold home Lasix, losartan, indapamide and spironolactone. Severe NAGMA is presumed secondary to chronic respiratory failure as below. Monitor daily BMP and urine output. 3. 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 Patient with recent complicated hospitalization and required intubation for combined respiratory failure from 03/18-03/20. Was discharged home on 2 L nasal cannula at rest and 3 L with exertion. Has suspected NEEL and recommendation wasfor outpatient workup for this which has not been completed yet. Stable on 2 L nasal cannula at rest in the ED. Monitor. Continue home albuterol inhaler as needed. 4. Chronic HFpEF, hypertension ? Echo during recent hospitalization on 03/19 showed EF 75%, moderate concentric LV hypertrophy, no other concerning findings. Mildly hypertensive to the 140s systolic in the ED. Holding home Lasix, losartan, indapamide and spironolactoneas above. Okay to continue home Coreg. 5. Acute on chronic debility with recent falls ? PT/OT/case management consulted. Patient lives at home alone. She was able to be discharged home with home health care after recent prolonged hospitalization. Has had worsening functional status with small falls over the past week or so per family. Appreciate therapy recommendations. 6. Anxiety, depression, insomnia, restless leg syndrome, neuropathy ? Continue home bupropion, duloxetine, gabapentin, pramipexole, mirtazapine and melatonin. 7. Class II obesity ? BMI 36 on admit. Complicates hospital course and care. DVT prophylaxis: Heparin subcu CODE STATUS: DNR CCA, okay to intubate Expected disposition: TBD Total clinical time spent by myself addressing the patient's medical issues, reviewing all the data, and collaborating with patient's care team: 86 minutes. Charges/Coding Visit Charges Inpatient E&M: 82410 Init Hosp L3 04/18/259 <Electronically signed by Jermaine Simms DO> Cosigner Signature (if applicable): CC: Dr. Jermaine Simms DO; Dr. Kamar Grimes MD~ Signed [facility] Work Phone: 1(310) 674-439410-17-2025 Discharge summary Author Deion Levy [facility] Note Date/Time April 18, 2025 6 :26pm [facility] Medical Records Department [address] [place] [address] Emergency Department Summary 04/18/25 MR#: [id number] Acct: [id number] Name: OSCAR WOO Rep #:[id number] : 1950 75 From: Deion Levy MD PCP: Dr. Kamar Grimes MD Status:REG ER Location: ED HPI History of Present Illness Chief Complaint: Abn Labs Detail of Chief Complaint: Abnormal, weak, frequent falls Informant: patient and family (Sister and granddaughter) Onset/Context/Timing Onset: - (Patient has been falling the past week. Sodium has been low the past several days.) Context: Sudden Onset Timing: Continuous Quality: Patient with paresthesias, frequent falls, general weakness Location: Presents from home by ambulance Current Severity: Moderate Maximum Severity: Moderate Worsened by: Patient was recently prescribed furosemide on top of her thiazide diuretic Relieved by: Nothing Associated Symptoms Associated Symptoms: HPI narrative Narrative Narrative: Patient is a 75-year-old woman who lives alone. She has history of obstructive sleep apnea, lung disease, hypertension, insomnia, diarrhea and depression. Patient had a sodium of 125 and chloride of 74 on April 16. Furosemide was discontinued at that time. Last month her sodium was normal, 139. Sodium on March 25 was 147. Patient presents because of abnormal labs. It was further determined that she has had frequent falls and has multiple bruises on her legs because of falls. She cannot walk more than 10 to 15 feet using her walker without collapsing. She is not having to eat or drink for the last 2 to 3 days. She is consuming however water between 6-10 bottles a day. Patient complains of thirst. Patient denies increased urination. She denies dysuria or hematuria. Patient states she was placed on furosemide because several weeks ago she had trouble sleeping at night because of shortness of breath. She denied orthopnea or PND. She denies chest discomfort. Patient does have history of chronic diarrhea and is on Imodium. Sister was angry with me because she states she lives alone and she cannot go home. Sister fabricated some events. The sister was challenged. Granddaughterwas in the room. She acknowledged that the sister was changing her rendition ofwhat happened and exaggerated some events. 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 Instructions: Restart on 03/31/2025 melatonin 5 mg tablet 10 mg PO [...] DEPRES RAHEEM 09/11/24 09/13/24 History release (Cymbalta) aspirin 81 mg chewable tablet 81 mg PO BID blood thinn er #0 tabs 09/17/24 Unknown Rx loperamide 2 mg capsule 2 mg PO Q2H PRN PRN DIARRHEA #0 09/17/24 Unknown Rx caps albuterol sulfate 90 mcg/actuation 2 inh inhalation Q4 H PRN shortness 03/18/25 Unknown History aerosol inhaler of breath or wheezing doxycycline hyclate 100 mg capsule 100 mg [...] mg PO DAILY 03/18/25 Un known History Held on 03/26/25. Instructions: Restart on 03/28/2025 carvedilol 3.125 mg tablet 1.56 mg PO BID 04/16/25 Unk nown History lactobacillus combination no.9 4 4,000 mmu cells PO QD AY 04/16/25 Unknown History billion cell capsule (Adult 50 Plus Probiotic) magnesium aspart,citrate,oxide mg PO 04/16/25 Unknown History ondansetron HCl 4 mg tablet 4 mg PO Q8 PRN 04/16/25 Un known History pramipexole 0.5 mg tablet 0.5 mg PO DINNER RLS 5 Unknown History Allergy/AdvReac Type Severity Reaction Status Date / Time Penicillins Allergy Anaphylaxis Verified 04/18/25 13:45 Family History Mother Heart disease Diabetes Brother Heart disease Diabetes Brother Heart disease pacemaker Sister Atrial fibrillation Surgical History History of reverse total replacement [...] household members: none Smoking Status: Former smoker how long ago did patient quit smokin years ago alcohol intake: never substance use type: does not use caffeine: No ROS ROS ED Constitutional Constitutional ED: Reports weight loss; Denies chills, fever(s), subjective or sweats Eyes Eyes: Denies blurry vision or change in vision ENT ENT ED: Denies ear pain or rhinorrhea Cardiovascular Cardiovascular: Denies chest pain or palpitations Respiratory/Chest Respiratory/Chest: Denies cough, dyspnea or dyspnea on exertion Gastrointestinal Gastrointestinal: Reports diarrhea; Denies abdominal pain, nausea or vomiting Genitourinary Genitourinary ED: Denies dysuria, hematuria or urinary frequency Musculoskeletal Musculoskeletal: Denies arthralgias or myalgias Neurologic Neurologic: Reports paresthesias RUE, RLE, LUE and LLE and weakness Psychiatric Psychiatric: Denies anxiety or depression Endocrine Endocrinology: Denies cold intolerance or heat intolerance Hematologic/Lymphatic Hematologic/Lymphatic: Reports systems reviewed and no addt'l complaints, exceptas documented EXAM Physical Exam Const Vital Signs: 04/18/25 13:42 04/18/25 14:17 04/18/25 14:57 Temperature 98.6 F Temperature Source Oral Pulse Rate 84 83 Pulse Rate [Lying] Pulse Rate [Sitting (for 1 minute prior to obtaining)] Respiratory Rate 30 H 18 Respiratory Effort Normal Non-Labored Respiratory Pattern Normal Blood Pressure 143/78 H 120/85 H Blood Pressure [Lying] Blood Pressure [Sitting (for 1 minute prior to obtaining)] Blood Pressure Mean 99 96 Blood Pressure Mean [Lying] Blood Pressure Mean [Sitting (for 1 minute prior to obtaining)] Pulse Ox 97 95 Oxygen Delivery Method Room Air Nasal Cannula Oxygen Flow Rate (L/min) 2 04/18/25 15:00 04/18/25 15:28 04/18/25 16:00 Temperature Temperature Source Pulse Rate 84 84 Pulse Rate [Lying] 82 Pulse Rate [Sitting (for 1 minute prior to obtaining)] 86 Respiratory Rate 24 H 30 H Respiratory Effort Respiratory Pattern Blood Pressure 140/103 H 151/101 H Blood Pressure [Lying] 150/75 H Blood Pressure [Sitting (for 1 minute prior to obtaining)] 151/101 H Blood Pressure Mean 115 117 Blood Pressure Mean [Lying] 100 Blood Pressure Mean [Sitting (for 1 minute prior to obtaining)] 117 Pulse Ox 97 97 Oxygen Delivery Method Nasal Cannula Nasal Cannula Oxygen Flow Rate (L/min) 2 2 Positive well nourished, well developed and obese General Appearance ED: well developed and NAD; Negative for cyanotic or diaphoretic Nutritional Appearance: obese HEENT Reports dry mucous membranes HEENT Narrative: Head is atraumatic normocephalic. Ears normal. Nares patent. Mouth ED: Yes dry mucous membranes Mouth: dry mucous membranes Eyes PERRL and EOMs intact bilaterally General Eye ED: Negative for pale conjunctiva or scleral icterus Neck no lymphadenopathy and supple Chest Wall inspection of chest normal and palpation of chest normal Resp normal respiratory effort and clear to auscultation bilaterally Cardio regular rate, regular rhythm, S1 normal heart sound, S2 normal heart sound and no murmurs GI normal to inspection, nondistended, normoactive bowel sounds, non-tender, non-distended and no masses; Negative for hepatosplenomegaly Auscultation: normoactive bowel sounds Back/Spine no CVA tenderness Extremity Negative for normal to inspection Extremity Narrative: She has full active range of motion of right and left knee and right and left ankle. There is no point bony tenderness over the patella, joint line, lateral medial malleolus. General Extremety ED: Negative for tenderness Neuro oriented x3, CN's II-XII intact bilaterally and no sensory deficits noted Neuro Narrative: There is no clonus Babinski sign noted. Sensorium / Orientation: alert Motor Exam: strength 5/5 throughout Psych mental status grossly normal Skin Skin Narrative: Patient has multiple bruises abrasions to the right and left knee. MDM MDM MDM Narrative Medical decision making narrative: Patient with hyponatremia and possibly symptomatic due to that. Will repeat labs. Orthostatics were ordered as well as ambulation patient states she could not because she did not feel comfortable standing and unsteady. Patient has not been on steroids recently. There is no concern for Hammad's disease. She in my opinion does not have [place] syndrome either. I believe her symptoms are all due to the fact that she is on a thiazide diuretic and was placed on a loop diuretic. Lab Data Attestation: I reviewed the patient's lab results. Lab results narrative: CBC is unremarkable. Comprehensive metabolic panel was a sodium 121 and chloride of 73 with a potassium of 5.4. CO2 is elevated and was normal 1 month ago. Suspect this is due to hypochloremic metabolic alkalosis. Labs: Laboratory Results - last 24 hr 04/18/25 14:05 WBC 10.0 RBC 4.49 Hgb 13.1 Hct 40.0 MCV 89.1 MCH 29.2 MCHC 32.8 RDW Std Deviation 45.1 H RDW Coeff of Terry 13.9 Plt Count 160 MPV 11.7 Immature Gran % (Auto) 0.600 Neut % (Auto) 77.8 H Lymph % (Auto) 10.9 L Lyon % (Auto) 8.9 Eos % (Auto) 1.6 Baso % (Auto) 0.2 Absolute Neuts (auto) 7.8 H Absolute Lymphs (auto) 1.09 Nucleated RBC % 0 Sodium 121 L Potassium 5.4 H Chloride 73 L* Carbon Dioxide 42.5 H Anion Gap 6 BUN 53 H Creatinine 1.30 H Estim Creat Clear Calc 46.24 L Est GFR (MDRD) Non-Af 43 L BUN/Creatinine Ratio 40.9 H Glucose 102 H Calcium 9.7 Total Bilirubin 0.41 AST 50 H ALT 32 Alkaline Phosphatase 123 H Total Protein 6.6 Albumin 3.7 Globulin 3.0 Albumin/Globulin Ratio 1.2 Management Discussion w/another healthcare provider: Hospitalist (Dr. Simms was paged for admission for symptomatic hyponatremia. Suspect this is due to the fact sheis on a loop diuretic and thiazide diuretic and the fact that she has been drinking water) Discharge Plan Dx/Rx/DC Orders Clinical Impression: Hyponatremia syndrome, Hypochloremic alkalosis, Inability to walk, Hypertension, Depression Disposition Disposition: Acute Care Hospital [facility] What to do if you have Problems For any increased pain, shortness of breath, bleeding, nausea or vomiting, chestpain, or any unexpected problems, contact your Primary Care Provider. Call [facility] ([phone]) or report to the closest Emergency Room. Call 911 if necessary. 04/18/251725 <Electronically signed by Deion Levy MD> Cosigner Signature (if applicable): CC: Dr. Kamar Grimes MD ~ Signed [facility] Work Phone: [phone] 495-868410-17-2025 Discharge summary Author Deion Levy [facility] Note Date/Time April 18, 2025 5 :26pm [facility] Medical Records Department [address] [place] [address] Emergency Department Summary 04/18/25 MR#: [id number] Acct: [id number] Name: OSCAR WOO Rep #:[id number] : 1950 75 From: Deion Levy MD PCP: Dr. Kamar Grimes MD Status:REG ER Location: ED HPI History of Present Illness Chief Complaint: Abn Labs Detail of Chief Complaint: Abnormal, weak, frequent falls Informant: patient and family (Sister and granddaughter) Onset/Context/Timing Onset: - (Patient has been falling the past week. Sodium has been low the past several days.) Context: Sudden Onset Timing: Continuous Quality: Patient with paresthesias, frequent falls, general weakness Location: Presents from home by ambulance Current Severity: Moderate Maximum Severity: Moderate Worsened by: Patient was recently prescribed furosemide on top of her thiazide diuretic Relieved by: Nothing Associated Symptoms Associated Symptoms: HPI narrative Narrative Narrative: Patient is a 75-year-old woman who lives alone. She has history of obstructive sleep apnea, lung disease, hypertension, insomnia, diarrhea and depression. Patient had a sodium of 125 and chloride of 74 on April 16. Furosemide was discontinued at that time. Last month her sodium was normal, 139. Sodium on March 25 was 147. Patient presents because of abnormal labs. It was further determined that she has had frequent falls and has multiple bruises on her legs because of falls. She cannot walk more than 10 to 15 feet using her walker without collapsing. She is not having to eat or drink for the last 2 to 3 days. She is consuming however water between 6-10 bottles a day. Patient complains of thirst. Patient denies increased urination. She denies dysuria or hematuria. Patient states she was placed on furosemide because several weeks ago she had trouble sleeping at night because of shortness of breath. She denied orthopnea or PND. She denies chest discomfort. Patient does have history of chronic diarrhea and is on Imodium. Sister was angry with me because she states she lives alone and she cannot go home. Sister fabricated some events. The sister was challenged. Granddaughterwas in the room. She acknowledged that the sister was changing her rendition ofwhat happened and exaggerated some events. 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 Instructions: Restart on 03/31/2025 melatonin 5 mg tablet 10 mg PO [...] DEPRES RAHEEM 09/11/24 09/13/24 History release (Cymbalta) aspirin 81 mg chewable tablet 81 mg PO BID blood thinn er #0 tabs 09/17/24 Unknown Rx loperamide 2 mg capsule 2 mg PO Q2H PRN PRN DIARRHEA #0 09/17/24 Unknown Rx caps albuterol sulfate 90 mcg/actuation 2 inh inhalation Q4 H PRN shortness 03/18/25 Unknown History aerosol inhaler of breath or wheezing doxycycline hyclate 100 mg capsule 100 mg [...] mg PO DAILY 03/18/25 Un known History Held on 03/26/25. Instructions: Restart on 03/28/2025 carvedilol 3.125 mg tablet 1.56 mg PO BID 04/16/25 Unk nown History lactobacillus combination no.9 4 4,000 mmu cells PO QD AY 04/16/25 Unknown History billion cell capsule (Adult 50 Plus Probiotic) magnesium aspart,citrate,oxide mg PO 04/16/25 Unknown History ondansetron HCl 4 mg tablet 4 mg PO Q8 PRN 04/16/25 Un known History pramipexole 0.5 mg tablet 0.5 mg PO DINNER RLS 5 Unknown History Allergy/AdvReac Type Severity Reaction Status Date / Time Penicillins Allergy Anaphylaxis Verified 04/18/25 13:45 Family History Mother Heart disease Diabetes Brother Heart disease Diabetes Brother Heart disease pacemaker Sister Atrial fibrillation Surgical History History of reverse total replacement [...] household members: none Smoking Status: Former smoker how long ago did patient quit smokin years ago alcohol intake: never substance use type: does not use caffeine: No ROS ROS ED Constitutional Constitutional ED: Reports weight loss; Denies chills, fever(s), subjective or sweats Eyes Eyes: Denies blurry vision or change in vision ENT ENT ED: Denies ear pain or rhinorrhea Cardiovascular Cardiovascular: Denies chest pain or palpitations Respiratory/Chest Respiratory/Chest: Denies cough, dyspnea or dyspnea on exertion Gastrointestinal Gastrointestinal: Reports diarrhea; Denies abdominal pain, nausea or vomiting Genitourinary Genitourinary ED: Denies dysuria, hematuria or urinary frequency Musculoskeletal Musculoskeletal: Denies arthralgias or myalgias Neurologic Neurologic: Reports paresthesias RUE, RLE, LUE and LLE and weakness Psychiatric Psychiatric: Denies anxiety or depression Endocrine Endocrinology: Denies cold intolerance or heat intolerance Hematologic/Lymphatic Hematologic/Lymphatic: Reports systems reviewed and no addt'l complaints, exceptas documented EXAM Physical Exam Const Vital Signs: 04/18/25 13:42 04/18/25 14:17 04/18/25 14:57 Temperature 98.6 F Temperature Source Oral Pulse Rate 84 83 Pulse Rate [Lying] Pulse Rate [Sitting (for 1 minute prior to obtaining)] Respiratory Rate 30 H 18 Respiratory Effort Normal Non-Labored Respiratory Pattern Normal Blood Pressure 143/78 H 120/85 H Blood Pressure [Lying] Blood Pressure [Sitting (for 1 minute prior to obtaining)] Blood Pressure Mean 99 96 Blood Pressure Mean [Lying] Blood Pressure Mean [Sitting (for 1 minute prior to obtaining)] Pulse Ox 97 95 Oxygen Delivery Method Room Air Nasal Cannula Oxygen Flow Rate (L/min) 2 04/18/25 15:00 04/18/25 15:28 04/18/25 16:00 Temperature Temperature Source Pulse Rate 84 84 Pulse Rate [Lying] 82 Pulse Rate [Sitting (for 1 minute prior to obtaining)] 86 Respiratory Rate 24 H 30 H Respiratory Effort Respiratory Pattern Blood Pressure 140/103 H 151/101 H Blood Pressure [Lying] 150/75 H Blood Pressure [Sitting (for 1 minute prior to obtaining)] 151/101 H Blood Pressure Mean 115 117 Blood Pressure Mean [Lying] 100 Blood Pressure Mean [Sitting (for 1 minute prior to obtaining)] 117 Pulse Ox 97 97 Oxygen Delivery Method Nasal Cannula Nasal Cannula Oxygen Flow Rate (L/min) 2 2 Positive well nourished, well developed and obese General Appearance ED: well developed and NAD; Negative for cyanotic or diaphoretic Nutritional Appearance: obese HEENT Reports dry mucous membranes HEENT Narrative: Head is atraumatic normocephalic. Ears normal. Nares patent. Mouth ED: Yes dry mucous membranes Mouth: dry mucous membranes Eyes PERRL and EOMs intact bilaterally General Eye ED: Negative for pale conjunctiva or scleral icterus Neck no lymphadenopathy and supple Chest Wall inspection of chest normal and palpation of chest normal Resp normal respiratory effort and clear to auscultation bilaterally Cardio regular rate, regular rhythm, S1 normal heart sound, S2 normal heart sound and no murmurs GI normal to inspection, nondistended, normoactive bowel sounds, non-tender, non-distended and no masses; Negative for hepatosplenomegaly Auscultation: normoactive bowel sounds Back/Spine no CVA tenderness Extremity Negative for normal to inspection Extremity Narrative: She has full active range of motion of right and left knee and right and left ankle. There is no point bony tenderness over the patella, joint line, lateral medial malleolus. General Extremety ED: Negative for tenderness Neuro oriented x3, CN's II-XII intact bilaterally and no sensory deficits noted Neuro Narrative: There is no clonus Babinski sign noted. Sensorium / Orientation: alert Motor Exam: strength 5/5 throughout Psych mental status grossly normal Skin Skin Narrative: Patient has multiple bruises abrasions to the right and left knee. MDM MDM MDM Narrative Medical decision making narrative: Patient with hyponatremia and possibly symptomatic due to that. Will repeat labs. Orthostatics were ordered as well as ambulation patient states she could not because she did not feel comfortable standing and unsteady. Patient has not been on steroids recently. There is no concern for [place]'s disease. She in my opinion does not have Arianne syndrome either. I believe her symptoms are all due to the fact that she is on a thiazide diuretic and was placed on a loop diuretic. Lab Data Attestation: I reviewed the patient's lab results. Lab results narrative: CBC is unremarkable. Comprehensive metabolic panel was a sodium 121 and chloride of 73 with a potassium of 5.4. CO2 is elevated and was normal 1 month ago. Suspect this is due to hypochloremic metabolic alkalosis. Labs: Laboratory Results - last 24 hr 04/18/25 14:05 WBC 10.0 RBC 4.49 Hgb 13.1 Hct 40.0 MCV 89.1 MCH 29.2 MCHC 32.8 RDW Std Deviation 45.1 H RDW Coeff of Terry 13.9 Plt Count 160 MPV 11.7 Immature Gran % (Auto) 0.600 Neut % (Auto) 77.8 H Lymph % (Auto) 10.9 L Lyon % (Auto) 8.9 Eos % (Auto) 1.6 Baso % (Auto) 0.2 Absolute Neuts (auto) 7.8 H Absolute Lymphs (auto) 1.09 Nucleated RBC % 0 Sodium 121 L Potassium 5.4 H Chloride 73 L* Carbon Dioxide 42.5 H Anion Gap 6 BUN 53 H Creatinine 1.30 H Estim Creat Clear Calc 46.24 L Est GFR (MDRD) Non-Af 43 L BUN/Creatinine Ratio 40.9 H Glucose 102 H Calcium 9.7 Total Bilirubin 0.41 AST 50 H ALT 32 Alkaline Phosphatase 123 H Total Protein 6.6 Albumin 3.7 Globulin 3.0 Albumin/Globulin Ratio 1.2 Management Discussion w/another healthcare provider: Hospitalist (Dr. Simms was paged for admission for symptomatic hyponatremia. Suspect this is due to the fact sheis on a loop diuretic and thiazide diuretic and the fact that she has been drinking water) Discharge Plan Dx/Rx/DC Orders Clinical Impression: Hyponatremia syndrome, Hypochloremic alkalosis, Inability to walk, Hypertension, Depression Disposition Disposition: Acute Care Hospital [facility] What to do if you have Problems For any increased pain, shortness of breath, bleeding, nausea or vomiting, chestpain, or any unexpected problems, contact your Primary Care Provider. Call [facility] ([phone]) or report to the closest Emergency Room. Call 911 if necessary. 04/18/25 1726 <Electronically signed by Deion Levy MD> Cosigner Signature (if applicable): CC: Dr. Kamar Grimes MD ~ Signed [facility] Work Phone: [phone] 961-200710-15-2025 Progress note Author Mike Reddy [facility] Services Note Date/Time April 16, 2025 4 :26pm [facility] [address] [place] [address]. [address] [place] [address] OFFICE VISIT Date of Service: 04/16/25 MR#: [id number] Acct: [id number] Name: OSCAR WOO Rep #: [id number] : 1950 Provider: Dr. Ajit Reddy MD Age/Sex: 75/F Location: [facility] Status: Signed HPI HPI History of Present Illness Details: Patient is a 75-year-old white female that comes in with family for follow-up after prolonged hospitalization at [facility]. Patient was admitted with profound hypotension and hypoxia and presumed sepsis. She is admitted on March 18, 2025 she required pressor agents and volume replacement. Patient has a history of hypertension in the past and a history ofa saccular aneurysm that measured 4.4 cm that did not involve any major branches. The patient was actually discharged on March 26, 2025. Since discharge the patient has continued to be short of breath. Her echocardiogram while hospitalized showed an EF of 75% with a hyperdynamic LV. She had a small less than 1 cm pericardial effusion that is planned to be followed up with a subsequent limited echo. There was no evidence of tamponade. The patient had recent lab work on April 09. Sodium was 128 potassium 4.6 chloride 71 bicarb 46 BUN 47 creatinine 1.61 glucose 116. This was ordered by Dr. Kamar Grimes and after this lab work she was told to discontinue her Lasix andlosartan which she did but only yesterday. Which was April 15, 2025. The patient is due to get repeat blood work today by Dr. Grimes's orders. Patient presented the office today with a blood pressure 105/71 heart rate was 108 and ECG done in office today showed sinus tachycardia with a chronic first- degree AV block known to be present from her previous hospitalization. She had nonspecific ST changes and a prolonged QT interval consistent with her electrolyte abnormalities. While hospitalized the patient's renal function was normal at the time of discharge. Patient's O2 saturation was 76% on room air onarrival. After being placed on oxygen it went up to 94% on 2 L nasal cannula. I did talk to Dr. Topete. He has been trying to get the patient to get lower extremity ultrasounds done but she has not followed through with the orders. This is very important given the fact that there may be a small blood clot in her right pulmonary artery and if she is having recurrent small DVTs that are showering into the pulmonary vasculature could account for some of her problems. I did encourage her to get the DVT scan done. The patient does not have any history of pulmonary hypertension her echocardiogram from March 04, 2025 showed no pulmonary hypertension. Her pulmonary artery main trunk measured 32 in the aorta measured 41 on her CTA donewhen she was hospitalized in March. This is not consistent with pulmonary hypertension. The patient does have obstructive sleep apnea. ECG in the office today shows sinus tachycardia with first-degree AV block nonspecific ST abnormality and prolonged QT interval. 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 Instructions: Restart on 03/31/2025 melatonin 5 mg tablet 10 mg PO QHS INSOMNIA 04/16/25 History bupropion HCl 300 mg 24 hr tablet, 150 mg PO DAILY DEP RESSION 06/11/20 04/16/25 History extended release gabapentin 600 mg tablet 600 mg PO QHS SLEEP 06/11/20 04/16/25 History mirtazapine 15 mg tablet 15 mg PO QHS INSOMNIA 04/16/25 History duloxetine 30 mg capsule,delayed 30 mg PO DAILY DEPRES RAHEEM 09/11/24 04/16/25 History release (Cymbalta) aspirin 81 mg chewable tablet 81 mg PO BID blood thinn er #0 tabs 09/17/24 04/16/25 Rx loperamide 2 mg capsule 2 mg PO Q2H PRN PRN DIARRHEA #0 09/17/24 04/16/25 Rx caps albuterol sulfate 90 mcg/actuation 2 inh inhalation Q4 H PRN shortness 03/18/25 04/16/25 History aerosol inhaler of breath or wheezing doxycycline hyclate 100 mg capsule 100 mg PO BID abx 0 03/18/25 04/16/25 History indapamide 2.5 mg tablet 2.5 mg PO DAILY diuretic 04/16/25 History naproxen sodium 220 mg tablet 440 mg PO DAILY PRN pain 03/18/25 04/16/25 History potassium citrate 10 mEq (1,080 10 meq PO DAILY 04/16/25 History mg) tablet,extended release pramipexole 1 mg tablet 1 mg PO QHS restless leg 04/16/25 History spironolactone 50 mg tablet 50 mg PO DAILY 03/18/25 History Held on 03/26/25. Instructions: Restart on 03/28/2025 carvedilol 3.125 mg tablet 1.56 mg PO BID 04/16/25 History lactobacillus combination no.9 4 4,000 mmu cells PO QD AY 04/16/25 04/16/25 History billion cell capsule (Adult 50 Plus Probiotic) magnesium aspart,citrate,oxide mg PO 04/16/25 04/16/25 History ondansetron HCl 4 mg tablet 4 mg PO Q8 PRN 04/16/25 History pramipexole 0.5 mg tablet 0.5 mg PO DINNER RLS 5 04/16/25 History Ejection fraction %: 75 Have you fallen in the past year?: Yes PFSH Medical History (Updated 04/16/25 @ 16:[address] Mike Reddy MD) Saccular aneurysm Infection of prosthetic shoulder joint Essential (primary) hypertension Debility Infection and inflammatory reaction due to other internal joint prosthesis, initial encounter Insomnia MRSA (methicillin resistant staph aureus) culture positive Wears glasses Post-menopausal Depression Anxiety Walker as ambulation aid Ambulates with cane Arthritis High cholesterol Back pain Restless legs Former smoker Shortness of breath on exertion History of pain when walking History of edema Hypertension Surgical History History of reverse total replacement of right shoulder joint History of surgery Hx of colonoscopy Hx of right cataract extraction Hx of left cataract extraction History of partial colectomy Hx of appendectomy Hx of total hip arthroplasty Hx of total shoulder replacement Hx of lumbar discectomy Hx of total shoulder replacement Hx of total hip arthroplasty Family History Mother Heart disease Diabetes Brother Heart disease Diabetes Brother Heart disease pacemaker Sister Atrial fibrillation Social History household members: none Smoking Status: Former smoker how long ago did patient quit smokin years ago alcohol intake: never substance use type: does not use caffeine: No ROS Const Const: Positive for fatigue and weakness ENT ENT: Positive for dizziness; Negative for balance problems Cardio Chest Pain: No Palpitations: No Edema: Bilateral Muscle aches with walking: None Resp Respiratory: Positive for SOB with activity; Negative for SOB at rest or SOB orthopnea\\SOB lying down GI GI: Positive for nausea; Negative vomiting or heartburn Musc Musc: Negative for muscle weakness or balance problems Neuro Neuro: Positive for dizziness, lightheadedness, near syncope and weakness; Negative for syncope Endo Endo: Positive for fatigue Cardiology Exam Const Appearance: cooperative, no acute distress and disheveled Nutritional Appearance: obese Head Head: normal to inspection Eyes General: appearance normal, both eyes and all related structures Neck Neck: normal visual inspection and no JVD Carotids: Negative bruit Chest Chest inspection: other (Increased AP diameter) Auscultation: Bilateral: Diminished Lung Sounds (Bases) Cardio Rate: tachycardic Rhythm: regular rhythm Heart sounds: S1 normal and S2 normal; Negative rub, gallop or murmur Distant heart tones due to increased AP diameter and body habitus. GI GI: obese Neuro General: patient alert and patient oriented x3 Extremities Lower Extremity Edema: None: Bilateral Psych Psychological: flat affect Supplemental Info Supplemental Information Diagnostics: Electrocardiogram Echocardiogram Chest X-Ray Past Visits: Cardiology Visit Today Assessment and Plan Assessment and Plan (1) Hypoxia: Status: Acute Plan: Patient's hypoxia is an uncertain etiology. The patient does have a significantsmoking history but has not smoked in several years. She does have a body habitus consistent with potential restrictive airway disease and does have obstructive sleep apnea. The patient has been oxygen dependent and was found March 18 without her oxygen and unresponsive by family member. She was transported to hospital wheree was hospitalized for several days. It was presumed that she was septic she was intubated for a period of time and required pressors. She simply was extubated and was felt to be back to her baseline requiring oxygen for ambulation. Since discharge the patient has not done well by her and her family's report. She continues to be very short of breath her O2 sat was 76% on no oxygen when she came to the office today. On 2 L nasal cannula and improved to 94%. The tank that she had with her was nonfunctional. I did discuss this with Dr. trinh and there is no indication that she has significant pulmonary hypertension by either echocardiogram or CT size of her pulmonary artery trunk. There was a question of if she had a small lingular type clot in the right main pulmonary artery on the CT. She is supposed to be get a scan of her lower extremities to rule out DVTs. If there are clots in herlower extremity deep veins consideration should be given of placing her on Coumadin. We will repeat her echocardiogram to check the size of the small pericardial effusion that she had prior to starting her on Coumadin. Patient does not have any indication of right-sided or left-sided heart failure there is no significant valvular heart disease I do not see a cardiac etiology to explain her continued hypoxia. (2) Hypertension: Status: Chronic Qualifiers: Hypertension type: unspecified Qualified Code(s): I10 - Essential (primary) hypertension Plan: Patient's blood pressure is well-controlled at 105/71. Her losartan and Lasix were discontinued when she became hyponatremic and hypochloremic. She also has a significant metabolic alkalosis with a bicarb of 46. Her blood work is to be reevaluated by Dr. Grimes later today or tomorrow. This last blood work was fromApril 09. She did not stop her losartan and Lasix until April 15. (3) Pericardial effusion: Status: Acute Plan: We did order a limited echocardiogram to be done in the next 2-3 weeks. This isto reevaluate her small pericardial effusion to make sure it is not enlarging. (4) Saccular aneurysm: Status: Acute Plan: Patient has a 4.4 cm saccular aneurysm that does not involve any of the major great vessels from the abdominal aorta. This was discovered on her CT of her abdomen and pelvis when she was hospitalized March 2025. It was noted to [facility] but it was no reference and I cannot find an old evaluation of her abdominal aorta. I would recommend the patient be considered for evaluation with Dr. Ko to get his opinion. I do not feel she is a good candidate for surgical intervention given her pulmonary status. Repeat abdominal CTA or abdominal ultrasoundshould be done to reevaluate the aneurysm in the next 6 to 12 months. Orders: Orders 12 Lead EKG performed by [facility] Today I10 - Essential (primary) hypertension Echo, Limited Study 2 Weeks I31.39 - Other pericardial effusion (noninflammatory) Plan 1. Continue O2 supplements in the home environment. 2. Follow-up with Dr. Grimes for management of the patient's laboratory evaluation. 3. Patient be reevaluated in our office when one of our [facility]'s in the next 3 months. Plan Details Additional Comments: This note was generated with [employer] software. It may contain incorrectwords, spelling, and punctuation that were not noted in checking the note beforesigning. Follow Up: 3 Months (With [facility] and as needed) Coding Level of Care Code Off vis,est,level 4 Diagnoses Hypoxia R09.02 Hypertension, unspecified type I10 Hypertension type: unspecified Pericardial effusion I31.39 Saccular aneurysm I67.1 Coding Level of Care Code Off vis,est,level 4 Diagnoses Hypoxia R09.02 Hypertension, unspecified type I10 Hypertension type: unspecified Pericardial effusion I31.39 Saccular aneurysm I67.1 Clinical Quality Measures Falls Risk Screening/Assistive Devices Have you fallen in the past year?: Yes Cardiac Ejection fraction %: 75 04/16/25 1702 <Electronically signed by Mike witt MD> Date _ Mike Reddy MD Cosigner Signature: Date (if applicable) CC: Dr. Kamar Grimes MD ~ [facility] [employer] Work Phone: [phone] Discharge summary Author Karlapatrick Bustamante [facility] Note Date/Time March 26, 2025 1:42pm [facility] Medical Records Department [address] [place] [address] Discharge Summary 03/26/25 1309 MR#: [id number] Acct: [id number] Name: OSCAR WOO Rep #:[id number] : 1950 75 From: Karla Bustamante DO PCP: Dr. Kamar Grimes MD Status:ADM IN [facility] Prov[facility] Date of Admission: 03/18/25 Date of Discharge: 03/26/25 Primary Care Physician: Dr. Kamar Grimes MD Consultations 03/18/25 20:43 Consult: Trimmer Machine Operator / Pulmonary Medicine Routine Consulting Provider: [facility] Reason for Consult: Vent management, undifferentiated shock EMERGENT Consult: No MD Notified: Yes Date Notified: 03/19/25 Time Notified: 00:10 Method of Notification: Text 03/19/25 00:33 Consult: Onc/Wound/anodize machine operator Routine Comment: Reason for Consult:: Per ICU doc request dt prolonged immobility 03/19/25 18:18 Consult: Cardiology Routine Consulting Provider: Saul Kearney Reason for Consult: run of vtach, hypotensive EMERGENT Consult: Yes MD Notified: Yes Date Notified: 03/19/25 Time Notified: 18:19 Method of Notification: Verbal Comments:: Dr. Hernandez called Dr. Kearney 03/19/25 19:33 Consult: Infectious Disease Routine Consulting Provider: Sixto Andrade Reason for Consult: undifferentiated shock, unclear etiology, ID c/s requested per ICU physicia EMERGENT Consult: No MD Notified: Yes Date Notified: 03/20/25 Time Notified: 07:50 Method of Notification: Answering Service Reason For Visit: UNDIFFERENTIATED SHOCK, ACUTE HYPOXIC HYPERCAPNIC Diagnosis Discharge Diagnosis (1) Saccular aneurysm: Status: Acute Code(s): I67.1 - Cerebral aneurysm, nonruptured (2) Acute respiratory failure with hypoxia and hypercapnia: Status: Acute Code(s): J96.01 - Acute respiratory failure with hypoxia; J96.02 - Acute respiratory failure with hypercapnia (3) Shock: Status: Acute Code(s): R57.9 - Shock, unspecified (4) Acute kidney injury: Status: Acute Code(s): N17.9 - Acute kidney failure, unspecified Medications at Discharge Home Medications losartan 50 mg tablet 50 mg PO BID BP 09/19/14 Held on 03/26/25. Instructions: Restart on 03/31/2025 melatonin 5 mg tablet 10 mg PO QHS INSOMNIA 09/19/14 bupropion HCl 300 mg 24 hr tablet, extended release 150 mg PO DAILY DEPRESSION 06/11/20 gabapentin 600 mg tablet 600 mg PO QHS SLEEP 06/11/20 mirtazapine 15 mg tablet 15 mg PO QHS INSOMNIA 06/24/20 duloxetine 30 mg capsule,delayed release (Cymbalta) 30 mg PO DAILY DEPRESSION 09/11/24 pramipexole 0.5 mg tablet 0.5 mg PO DINNER RLS 09/11/24 aspirin 81 mg chewable tablet 81 mg PO BID blood thinner #0 tabs 09/17/24 loperamide 2 mg capsule 2 mg PO Q2H PRN PRN DIARRHEA #0 caps 09/17/24 albuterol sulfate 90 mcg/actuation aerosol inhaler 2 inh inhalation Q4H PRN shortness of breath or wheezing 03/18/25 carvedilol 3.125 mg tablet 3.125 mg PO BID 03/18/25 doxycycline hyclate 100 mg capsule 100 mg PO BID abx 03/18/25 indapamide 2.5 mg tablet 2.5 mg PO DAILY diuretic 03/18/25 naproxen sodium 220 mg tablet 440 mg PO DAILY PRN pain 03/18/25 potassium citrate 10 mEq (1,080 mg) tablet,extended release 10 meq PO DAILY 03/18/25 pramipexole 1 mg tablet 1 mg PO QHS restless leg 03/18/25 spironolactone 50 mg tablet 50 mg PO DAILY 03/18/25 Held on 03/26/25. Instructions: Restart on 03/28/2025 Hospital Course Procedures 2-D Echocardiogram, Central line placement, EKG and Intubation Summary of Care Provided Minutes Spent on Discharge: 45 Hospital Course: Ms. Woo is a 75-year-old white female who presents emergency department [facility] on 03/18/2025 with altered mental status. She was last known well at 1600 on March 17. Family reported at the time ofher presentation that she had been suffering from some shortness of breath and aden cough and was undergoing workup as outpatient and was supposed to see Dr. Reddy from cardiology but had not yet made that appointment. A cousin who was at her bedside reported that she complained of being afraid to fall asleep because she felt like she stops breathing when she sleeps and also complained ofsome nausea. In the emergency department she had slow speech and was noted to have a bruise over the left lateral periorbital region after she fell out of bed. Vital signs on presentation showed pressure 96.4, heart rate 68, blood pressure was 79/63, respiratory rate 16 and pulse ox was 79% on room air. Her CBC was unremarkable. Chemistry panel showed ELVIA with a serum creatinine of 2.2up from 1.03 which was performed a week ago. She had mild transaminitis with anAST of 86 and ALT of 61. Her lactic acid was 1.1. TSH was normal. Chest x-raywas unremarkable other than bilateral low lung volumes. CT of the brain was unremarkable. UA was not consistent with infection. Cultures were obtained andbroad-spectrum antibiotics were initiated. She was given IV fluids with improvement in her blood pressure however she then became hypotensive again and more somnolent. Capnography was indicative of CO2 retention and an ABG was obtained after she was intubated in the emergency department showing a pH of 7.32 with a pCO2 of 59.2 and a bicarb of 30. Pressure after intubation showed was 54/42 and a central line was placed and pressors were started. A CTA had been done the day prior to presentation and showed an infrarenal saccular aneurysm with a maximum diameter of 5.5 cm. 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 Shoulder x- ray was performed and was unremarkable. Ultimately, a CT of the shoulder was performed and it to was unremarkable for identifiable source of infection. Blood cultures were no growth, urine culture was no growth, sputum culture was no growth, respiratory viral panel was unremarkable. She did have some blood out of OG tube and was Gastroccult positive however hemoglobin was stable and no intervention was required. ID was consulted as was critical care medicine and she was maintainedon broad-spectrum antibiotics for an extended period of time. Once cultures were unremarkable and imaging on the shoulder was unremarkable she was transition back onto her oral doxycycline. She did require pressors and then was transition to midodrine. An echocardiogram was performed on 03/19/2025 and showed a normal EF at 75% with normal valves, small pericardial effusion and moderate concentric LVH. Cardiology was consulted due to hypotension and hyperdynamic LV and did not there are any cardiac event or vascular event contributing to her overall condition. She was able to be extubated on 03/20/2025. In addition to pressors and midodrine she was on stress dose steroids for brief period of time. Clinically she slowly improved and we were able to wean her midodrine at the time of discharge we are reintroducing her antihypertensives and diuretics. The overall etiology of her shock is unclear at this time as we have no culture positivity. She has recovered well. We did have a discussion about her needing an outpatient polysomnography. She was questioning whether or not we can do it as an inpatient but I did explain to herthat insurance does not cover that and cannot as a qualifying test for diagnosing obstructive sleep apnea and obtaining appropriate therapy. She did states she would discuss this with her primary care physician and get a sleep study as an outpatient. I agree this is important. We do not need to change any medications at the time of discharge. We did reintroduce her beta-clara and her diuretic. At discharge we have instructed her to hold her losartan and Aldactone and start her losartan next Monday and her Aldactone on the . Physical Occupational Therapy did evaluate the patient during her course and overall she was functioning to the point where she should be able to do quite well at home. She was concerned so we did do a peer to peer with her insurance company which they declined for halfway facility. Home health was set up. We have advised her to follow-up closely with her primary care physician. With regards to the saccular aneurysm she is to follow-up with her primary care physician for appropriate referral and follow-up after discharge. Ambulatory pulse ox was done prior to discharge and her oxygen saturations on room air at rest were indicative of the fact that she needs 2 L at rest and 3 L with exertion. Home oxygen was set up and she works with this as well. Patient was discharged home in stable condition on 03/26/2025. Discharge diagnoses: Undifferentiated shock Acute hypoxic and hypercapnic respiratory failure HFpEF Mild acute anemia Post critical illness generalized weakness Debility History of left shoulder prosthesis infection Infrarenal saccular abdominal aortic aneurysm-outpatient follow-up required Hyperglycemia-A1c 5.6 Restless leg syndrome Essential hypertension Depression Anxiety Morbid obesity Physical Exam Narrative Patient states overall she is feeling much better today. She states she peed quite a bit of the Lasix we gave her yesterday. No issues overnight. Const alert, oriented x3, no apparent distress, no limitations and well nourished; Negative for average body habitus or healthy appearing Constitutional Narrative: Morbidly obese, white female, sitting on the toilet in the bathroom getting dressed, nurses aide assisting, appears comfortable, nontoxic General Appearance: cooperative, comfortable, well kempt and well developed HEENT normocephalic, head/scalp atraumatic, hearing grossly normal bilaterally and moist oral mucous membranes HEENT Narrative: Mallampati 4, no thrush Eyes EOMs intact bilaterally and conjunctivae normal Eyes Narrative: No scleral icterus Neck supple Neck Narrative: Neck is short and thick, trachea midline no identifiable thyroid enlargement Resp normal respiratory effort, no retractions, no use of accessory muscles and clearto auscultation bilaterally Auscultation: Negative for crackles, rhonchi or wheezes Cardio regular rate, regular rhythm, S1 normal heart sound, S2 normal heart sound, no murmurs, no rub, no gallops and no clicks GI normal to inspection, nondistended, normoactive bowel sounds, soft to palpation and non-tender GI Narrative: Protuberant abdomen Extremity no clubbing, cyanosis or edema Extremity Narrative: 2+ pedal pulses, 2+ radial pulses Skin skin turgor normal, no jaundice, no petechiae and no mottling Neuro moves all extremities and no focal motor deficits Neuro Narrative: Generalized weakness noted more specific proximally than distal and lower extremities more affected than upper extremities Speech: speech normal Motor Exam: general weakness Psych thought process normal, cooperative and affect normal Psych Narrative: Very pleasant, far less anxious that she has been previous days, eye contact is good Appearance: appropriate Weight / BMI Weight Weight: 117 kg Body Mass Index (BMI) 40.4 ABG / Lab / Microbiology Data 03/26/25 07:00 03/26/25 07:00 Laboratory: Laboratory Results - last 24 hr 03/26/25 07:00: WBC 8.5, RBC 3.78 L, Hgb 11.1 L, Hct 35.8 L, MCV 94.7, MCH 29.4,MCHC 31.0 L, RDW Std Deviation 48.9 H, RDW Coeff of Terry 14.1, Plt Count 169, MPV9.7, Immature Gran % (Auto) 0.600, Neut % (Auto) 78.0 H, Lymph % (Auto) 9.6 L, Lyon % (Auto) 10.1 H, Eos % (Auto) 1.5, Baso % (Auto) 0.2, Absolute Neuts (auto) 6.6, Absolute Lymphs (auto) 0.81 L, Nucleated RBC % 0, Sodium 139, Potassium 3.9, Chloride 94 L, Carbon Dioxide 38.2 H, Anion Gap 7, BUN 18, Creatinine 0.68 L, Estim Creat Clear Calc 79.11, Est GFR (MDRD) Non-Af 90, BUN/Creatinine Ratio 26.4 H, Glucose 98, Calcium 8.7 Microbiology: Microbiology 03/18/25 15:18 Blood Culture (Wb) - Anticubital Left Blood Culture - Final No growth in 5 days. 03/18/25 15:18 Blood Culture (Wb) - Anticubital Right Blood Culture - Final No growth in 5 days. 03/18/25 15:24 Urine, Catheterized Urine Culture - Final Culture exhibits no growth. 03/18/25 19:14 Sputum, Induced/Lukens Gram Stain - Final 03/18/25 19:14 Sputum, Induced/Lukens Respiratory Culture - Final Mixed normal respiratory talya. No Streptococcus pneumoniae, beta-hemolytic Streptococcus or Staphylococcus aureus isolated. 03/19/25 08:25 Gastric Fluid/Contents Gastric Occult Blood - Final Occult Blood Positive 03/18/25 20:15 Mucosa - Nasopharyngeal Respiratory Panel (PCR) - Final D/C Instructions Discharge Activity: Return to Normal Activity DC O2, CPAP, BIPAP Needs Home O2 Discharge instructions: Yes Type of respiratory needs?: Oxygen Oxygen frequency: Continuous Continuous oxygen liters per minute: 2 L at rest and 3 L with exertion, At rest and With Ambulation Oxygen liters per minute during Ambulation: 3 DC home with Oxygen: Yes Home O2 MD Review: I have reviewed the oxygen testing, and the patient qualifies for home oxygen equipment and portability. The patient is mobile in the home and the community. Meaningful Use Info Meaningful Use Meaningful Use Diagnoses (Choose all that apply): None applicable Discharge Plan Admission Admit Date/Time: 03/18/25 19:38 Primary Reason for Your Visit: Altered mental status Attending Provider: Karla Bustamante Primary Care Provider: Kamar Grimes Consulting Providers: Emili Lee; Sixto Andrade; Wally Waddell; Garrick Staples; Murtaza Hunter; Antwan Gardner; Abdirashid Smith; Reginaldo Fatima; Alden Arcos; Rosalind Key; Jose Angel Handley; Petros Akbar; Lamin Campos; Sarah Hicks; Al Angel; Barnes,Ruma; Thuy,Travis; Butch Ospina; John Shepard; Angel Alva; Alina Garcia; Roopa Sands; Hermann Can; Cuate Rao; Celestino Gallagher; Tacos Hollins; John Quinn; Jodi Al NP; Sahara Chen; Otilia Hernandez Instructions Additional Instructions / Restrictions: 1. Please slowly ease back into your regular routine 2. Please use 2 L of oxygen at rest and 3 L with exertion 3. Please follow-up with your primary care physician and asked that a sleep study be ordered as we are highly suspicious that you do have obstructive sleep apnea at baseline 4. Please hold medications as noted below until instructed to reinitiate 5. Please follow-up with Dr. Reddy as previously instructed Discharge Orders/Prescriptions Prescriptions: Continued melatonin 5 MG tablet 10 mg PO QHS Patient Comments: SLEEP gabapentin 600 MG tablet 600 mg PO QHS bupropion HCl 300 MG tablet extended release 24 hr 150 mg PO DAILY mirtazapine 15 MG tablet 15 mg PO QHS carvedilol 3.125 mg tablet 3.125 mg PO BID potassium citrate 10 mEq (1,080 mg) tablet extended release 10 meq PO DAILY naproxen sodium 220 mg tablet 440 mg PO DAILY PRN (Reason: pain) doxycycline hyclate 100 mg capsule 100 mg PO BID pramipexole 1 mg tablet 1 mg PO QHS indapamide 2.5 mg tablet 2.5 mg PO DAILY albuterol sulfate 90 mcg/actuation HFA aerosol inhaler 2 inh inhalation Q4H PRN (Reason: shortness of breath or wheezing) pramipexole 0.5 mg tablet 0.5 mg PO DINNER duloxetine [Cymbalta] 30 mg capsule,delayed release(DR/EC) 30 mg PO DAILY loperamide 2 mg Capsule 2 mg PO Q2H PRN PRN (Reason: DIARRHEA) Qty: 0 0RF aspirin 81 mg Tablet,Chewable 81 mg PO BID Qty: 0 0RF Held losartan 50 MG tablet 50 mg PO BID Hold Instructions: Restart on 03/31/2025 Patient Comments: BLOOD PRESSURE spironolactone 50 mg tablet 50 mg PO DAILY Hold Instructions: Restart on 03/28/2025 Referrals / Follow Up: Kamar Grimes MD [Primary Care Provider, Family Practice] - Within 1 Week Disposition Disposition (needs filled in before D/C Order can be placed): Home Health Service Charges/Coding Visit Charges Inpatient E&M: 26156 Disch Hosp >30min 03/26/25 1342 <Electronically signed by Karla Bustamante DO> Cosigner Signature (if applicable): CC: Dr. Kamar Grimes MD; Dr. Karla Bustamante DO~ Signed [facility] Work Phone: [phone]) 258-522609-24-2025 [facility]09-23-2025 Progress note Author Karla Bustamante [facility] Note Date/Time March 25, 2025 6:11pm [facility] Medical Records Department [address] [place] [address] Progress Note - Hospitalist 03/25/25 180 MR#: [id number] Acct: [id number] Name: OSCAR WOO Rep #:[id number] : 1950 75 From: Karla Bustamante DO PCP: Dr. Kamar Grimes MD Status:ADM IN Location: [place] [address] Reason for Visit Chief Complaint: Altered mental status Subjective Subjective No issues overnight. Patient did state that she would like a polysomnography before she is discharged. We discussed again today that we cannot do that as aninpatient test has to be an outpatient test and I would make that recommendationat discharge however we are unable to do it here and get it covered and get her appropriate treatment after discharge. She again voiced understanding. No specific complaints. I did inform her if her blood pressure stays elevated off midodrine we would try to diurese her today a bit. Objective Data Objective Data Vital Signs: Vital Signs Temp Pulse Resp BP Pulse Ox O2 Del Method O2 Flow Rate 97.7 F L 87 16 126/69 H 97 Nasal Cannula 2 03/25/25 10:36 03/25/25 14:36 03/25/25 14:36 03/25/25 10:36 03/25/25 10:36 03/25/25 10:47 03/25/25 10:47 FiO2 25 03/20/25 08:00 Oxygen Flow Rate (L/min) 2 Oxygen Delivery Method Nasal Cannula Weight: 120 kg Body Mass Index (BMI) 41.4 Intake & Output: Intake and Output for Last 24 Hours 03/23/25 03/24/25 03/25/25 23:59 23:59 23:59 Intake Total 1000 / 1120 1999 Output Total 0 / 0 Balance 1000 / 1120 1999 Lab / Micro Data 03/25/25 05:30 03/25/25 05:30 Labs: Laboratory Results - last 24 hr 03/25/25 05:30: WBC 9.1, RBC 3.74 L, Hgb 11.3 L, Hct 36.8 L, MCV 98.4, MCH 30.2,MCHC 30.7 L, RDW Std Deviation 52.7 H, RDW Coeff of Terry 14.6, Plt Count 143 L, MPV 10.1, Immature Gran % (Auto) 0.500, Neut % (Auto) 79.2 H, Lymph % (Auto) 9.4L, Lyon % (Auto) 9.3, Eos % (Auto) 1.4, Baso % (Auto) 0.2, Absolute Neuts (auto)7.2, Absolute Lymphs (auto) 0.86, Nucleated RBC % 0, Sodium 140, Potassium 4.5, Chloride 99, Carbon Dioxide 35.9 H, Anion Gap 5, BUN 20 H, Creatinine 0.72, Estim Creat Clear Calc 80.24, Est GFR (MDRD) Non-Af 86, BUN/Creatinine Ratio 27.9 H, Glucose 105 H, Calcium 8.8 Micro: Microbiology 03/18/25 15:18 Blood Culture (Wb) - Anticubital Left Blood Culture - Final No growth in 5 days. 03/18/25 15:18 Blood Culture (Wb) - Anticubital Right Blood Culture - Final No growth in 5 days. 03/18/25 15:24 Urine, Catheterized Urine Culture - Final Culture exhibits no growth. 03/18/25 19:14 Sputum, Induced/Lukens Gram Stain - Final 03/18/25 19:14 Sputum, Induced/Lukens Respiratory Culture - Final Mixed normal respiratory talya. No Streptococcus pneumoniae, beta-hemolytic Streptococcus or Staphylococcus aureus isolated. 03/19/25 08:25 Gastric Fluid/Contents Gastric Occult Blood - Final Occult Blood Positive 03/18/25 20:15 Mucosa - Nasopharyngeal Respiratory Panel (PCR) - Final Physical Exam Const alert, oriented x3, no apparent distress and well nourished; Negative for average body habitus or healthy appearing Constitutional Narrative: Morbidly obese, white female, sitting up in chair at the bedside, friends and family at bedside, appears comfortable, currently does not look toxic General Appearance: cooperative HEENT normocephalic, head/scalp atraumatic and moist oral mucous membranes Resp normal respiratory effort, no retractions, no use of accessory muscles and clearto auscultation bilaterally Resp Narrative: Crackles at bases bilaterally Auscultation: crackles; Negative for rhonchi or wheezes Cardio regular rate, regular rhythm, S1 normal heart sound, S2 normal heart sound, no murmurs, no rub, no gallops and no clicks GI normal to inspection, nondistended, normoactive bowel sounds, soft to palpation and non-tender GI Narrative: Protuberant abdomen Extremity no clubbing, cyanosis or edema Extremity Narrative: 2+ pedal pulses, 2+ radial pulses Neuro moves all extremities and no focal motor deficits Neuro Narrative: Generalized weakness noted more specific proximally than distal and lower extremities more affected than upper extremities Speech: speech normal Psych affect normal Psych Narrative: Very pleasant, mildly anxious about having to return home potentially Assessment & Plan Assessment/Plan (1) Saccular aneurysm: (2) Acute respiratory failure with hypoxia and hypercapnia: (3) Shock: (4) Acute kidney injury: PLAN: Plan Undifferentiated shock - Required mechanical ventilations and pressors - Discontinue midodrine - All cultures have been negative - Patient did have joint infection of the shoulder in 08/[address] was ordered by ID and was unremarkable - IV my antimicrobials were discontinued and home doxycycline was reinitiated for suppressive therapy - ID is following-appreciate input Acute hypoxic and hypercapnic respiratory failure - Resolved -Patient intermittently requiring 2 L especially at night - Highly suspect obstructive sleep apnea patient needs outpatient polysomnography - Will recommend at discharge Mild acute anemia - Normocytic - Likely related to acute hospitalization and critical illness - Hemoglobin remained stable - Repeat CBC in a.m. Post critical illness generalized weakness and debility - Patient's ultimate goal is to return home however she is significantly concerned about this as she lives alone and has nobody that is able to stay withher - Current plan is for placement if possible - Continue PT/OT - Patient fatigues fairly quickly with any exertion - Awaiting pre-CERT for discharge History of left shoulder prosthesis infection - Oral Doxy restarted today - Continue outpatient follow-up as previous HFpEF - Echo done showing EF of 70% with stage I diastolic dysfunction - IV Lasix 40 mg x 1 dose - Will likely restart oral Lasix tomorrow Infrarenal saccular abdominal aortic aneurysm - 3.8 x 4.5 x 5.5 cm - Outpatient follow-up Hyperglycemia - Hemoglobin A1c was obtained and was found to be 5.6 - Not diabetic at baseline - Likely stress response Restless leg syndrome - Continue home Mirapex Essential hypertension - Discontinue midodrine - IV Lasix x 1 dose - Continue to hold carvedilol - Continue to hold indapamide next-continue to hold home losartan - continue to hold Aldactone Depression/anxiety - Continue home Remeron DVT prophylaxis - Continue Lovenox CODE STATUS - DNR CCA okay for intubation Disposition - Patient is medically stable for discharge - Awaiting pre-CERT from insurance Charges/Coding Visit Charges Inpatient E&M: 31857 Subs Hosp L2 Date medically ready for discharge: 03/24/25 Reason for DC delay: Precert pending from insurance 03/25/251810 <Electronically signed by Karla Bustamante DO> Cosigner Signature (if applicable): CC: ~ Signed [facility] Work Phone: 1(762) 252-491509-22-2025 Progress note Author Karla Bustamante [facility] Note Date/Time March 24, 2025 4:50pm [facility] Medical Records Department [address] [place] [id number] Progress Note - Hospitalist 03/24/25 1636 MR#: [id number] Acct: [id number] Name: OSCAR WOO Rep #:[id number] : 1950 75 From: Karla Bustamante DO PCP: Dr. Kamar Girmes MD Status:ADM IN Location: [place] [address] Reason for Visit Chief Complaint: Altered mental status Subjective Subjective Clinically patient is doing much better. Appears ready for discharge. Patient states that she is very concerned about going home and managing at home. She states she lives alone in her apartment and is unable to have anybody home with her and states she feels that she got significant difficulty managing. Objective Data Objective Data Vital Signs: Vital Signs Temp Pulse Resp BP Pulse Ox O2 Del Method O2 Flow Rate 98.4 F 94 18 136/78 H 94 Nasal Cannula 2 03/24/25 12:03/24/25 15:01 03/24/25 15:01 03/24/25 12:26 03/24/25 12:03/24/25 12:03/24/25 16:00 FiO2 25 03/20/25 08:00 Oxygen Flow Rate (L/min) 2 Oxygen Delivery Method Nasal Cannula Weight: 120.9 kg Body Mass Index (BMI) 41.7 Intake & Output: Intake and Output for Last 24 Hours 03/22/25 03/23/25 03/24/25 23:59 23:59 23:59 Intake Total 450 / 570 1000 / 1120 1100 / 1100 Output Total 0 / 0 0 / 0 Balance 450 / 570 1000 / 1120 1100 / 1100 Lab / Micro Data 03/24/25 05:25 03/24/25 05:25 Labs: Laboratory Results - last 24 hr 03/18/25 15:01: POC Glucose 118 H 03/24/25 05:25: WBC 10.6, RBC 3.85 L, Hgb 11.5 L, Hct 38.0, MCV 98.7, MCH 29.9, MCHC 30.3 L, RDW Std Deviation 54.4 H, RDW Coeff of Terry 15.1 H, Plt Count 152, MPV 10.3, Immature Gran % (Auto) 0.500, Neut % (Auto) 75.3 H, Lymph % (Auto) 9.8L, Lyon % (Auto) 12.2 H, Eos % (Auto) 2.0, Baso % (Auto) 0.2, Absolute Neuts (auto) 8.0 H, Absolute Lymphs (auto) 1.03, Nucleated RBC % 0, Sodium 141, Potassium 4.3, Chloride 101, Carbon Dioxide 32.9 H, Anion Gap 7, BUN 31 H, Creatinine 0.83, Estim Creat Clear Calc 77.67, Est GFR (MDRD) Non-Af 73, BUN/Creatinine Ratio 37.2 H, Glucose 109 H, Calcium 8.9 Micro: Microbiology 03/18/25 15:18 Blood Culture (Wb) - Anticubital Left Blood Culture - Final No growth in 5 days. 03/18/25 15:18 Blood Culture (Wb) - Anticubital Right Blood Culture - Final No growth in 5 days. 03/18/25 15:24 Urine, Catheterized Urine Culture - Final Culture exhibits no growth. 03/18/25 19:14 Sputum, Induced/Lukens Gram Stain - Final 03/18/25 19:14 Sputum, Induced/Lukens Respiratory Culture - Final Mixed normal respiratory talya. No Streptococcus pneumoniae, beta-hemolytic Streptococcus or Staphylococcus aureus isolated. 03/19/25 08:25 Gastric Fluid/Contents Gastric Occult Blood - Final Occult Blood Positive 03/18/25 20:15 Mucosa - Nasopharyngeal Respiratory Panel (PCR) - Final Physical Exam Const alert, oriented x3, no apparent distress and well nourished; Negative for average body habitus or healthy appearing Constitutional Narrative: Morbidly obese, white female, sitting up in chair at the bedside, friends and family at bedside, appears comfortable, currently does not look toxic HEENT head/scalp atraumatic and moist oral mucous membranes HEENT Narrative: Mallampati 3-4, no thrush Head and Scalp: normocephalic Resp normal respiratory effort, no retractions, no use of accessory muscles and clearto auscultation bilaterally Auscultation: Negative for rales, rhonchi or wheezes Cardio regular rate, regular rhythm, S1 normal heart sound, S2 normal heart sound, no murmurs, no rub, no gallops and no clicks GI normal to inspection, nondistended, normoactive bowel sounds, soft to palpation and non-tender GI Narrative: Protuberant abdomen Extremity no clubbing, cyanosis or edema Extremity Narrative: 2+ pedal pulses, 2+ radial pulses Neuro moves all extremities and no focal motor deficits Neuro Narrative: Generalized weakness noted more specific proximally than distal and lower extremities more affected than upper extremities Speech: speech normal Psych affect normal Psych Narrative: Very pleasant, mildly anxious about having to return home potentially Assessment & Plan Assessment/Plan (1) Saccular aneurysm: (2) Acute respiratory failure with hypoxia and hypercapnia: (3) Shock: (4) Acute kidney injury: PLAN: Plan Undifferentiated shock - Required mechanical ventilations and pressors -Wean midodrine from 10 mg 3 times daily to 5 mg 3 times daily - All cultures have been negative - Patient did have joint infection of the shoulder in 08/[address] was ordered by ID and was unremarkable - IV my antimicrobials were discontinued and home doxycycline was reinitiated for suppressive therapy - ID is following-appreciate input Acute hypoxic and hypercapnic respiratory failure - Resolved - Patient not requiring any supplemental oxygen at this time Leukocytosis -resolved Mild acute anemia - Normocytic -Likely related to acute hospitalization and critical illness -Hemoglobin is stable at 11.5 - Repeat CBC in a.m. Post critical illness generalized weakness and debility - Patient's ultimate goal is to return home however she is significantly concerned about this as she lives alone and has nobody that is able to stay withher - Current plan is for placement if possible - Continue PT/OT - Patient fatigues fairly quickly with any exertion History of left shoulder prosthesis infection - Oral Doxy restarted today - Continue outpatient follow-up as previous ELVIA - Resolved - Likely related to shock on presentation - Serum creatinine today is 0.83 HFpEF - Echo done showing EF of 70% with stage I diastolic dysfunction Infrarenal saccular abdominal aortic aneurysm - 3.8 x 4.5 x 5.5 cm - Outpatient follow-up Hyperglycemia - Hemoglobin A1c was obtained and was found to be 5.6 - Not diabetic at baseline - Likely stress response Restless leg syndrome - Continue home Mirapex Essential hypertension - Wean midodrine and restart home antihypertensive as blood pressure allows Depression/anxiety - Continue home Remeron DVT prophylaxis - Continue Lovenox CODE STATUS - DNR CCA okay for intubation Disposition - Patient is medically stable for discharge - Awaiting pre-CERT from insurance Charges/Coding Visit Charges Inpatient E&M: 23332 Subs Hosp L2 Date medically ready for discharge: 03/24/25 Reason for DC delay: Precert pending from insurance 03/24/25 1650 <Electronically signed by Karla Bustamante DO> Cosigner Signature (if applicable): CC: ~ Signed [facility] Work Phone: 1(808) 857-369709-22-2025 Progress note Author Sixto Andrade [facility] Note Date/Time March 24, 2025 2:[address] [place] [address] Health System Medical Records Department [address] [place] [address] Progress Note - Infect Disease 03/24/25 1429 MR#: [id number] Acct: [id number] Name: OSCAR WOO Rep #:[id number] : 1950 75 From: Sixto calhoun MD PCP: Dr. Kamar Grimes MD Status:ADM IN Location: [place] [address] Physical Exam Narrative Feeling better, no fever, no n/v/d, mild cough, no dysuria. Const alert and no apparent distress General Appearance: cooperative Resp normal air movement and clear to auscultation bilaterally Cardio regular rate and regular rhythm GI soft to palpation, non-tender and non-distended Extremity General Extremity: Negative for edema Skin no rashes or lesions noted Neuro CN's II-XII intact bilaterally ID ID: Route of nutrition/ use of supplements: [] Nutritional Intake: [] IV Site: [] Day Catheter: [] Assessment & Plan Assessment/Plan (1) Shock: PLAN: Unclear cause. ELVIA improved. Now off pressors and vent. No fever overnight. Bcx, sputum cx, and ucx neg so far. Stool showed blood. Ordered CT shoulder given 08/2024 MRSA/MSSA L shoulder PJI; reports compliance with suppressive po doxy as outpt. CT showed no abscess, exam is benign. Will stop eddie and resume home doxycycline po. Will follow (2) Acute on chronic respiratory failure with hypoxia and hypercapnia: (3) Infection of prosthetic shoulder joint: 03/24/25 1431 <Electronically signed by Sixto Andrade MD> Cosigner Signature (if applicable): CC: ~ Signed [facility] Work Phone: [phone]) 107-439609-21-2025 Progress note Author Otilia Hernandez [facility] Note Date/Time March 23, 2025 5:07pm [facility] Medical Records Department [address] [place] [address] Progress Note 03/23/25 1207 MR#: [id number] Acct: [id number] Name: OSCAR WOO Rep #:[id number] : 1950 75 From: Otilia Hernandez MD PCP: Dr. Kamar Grimes MD Status:ADM IN Location: [place] [address] Subjective Subjective Patient seen and examined. She had no active complaints. She remains on 2 L ofoxygen. Review of systems otherwise negative. Objective Data Objective Data Vital Signs: Vital Signs Temp Pulse Resp BP Pulse Ox O2 Del Method O2 Flow Rate 97.4 F L 78 20 H 107/71 97 Room Air 2 03/23/25 09:45 03/23/25 11:25 03/23/25 11:25 03/23/25 09:45 03/23/25 09:45 03/23/25 09:45 03/23/25 09:37 FiO2 03/20/25 08:00 Oxygen Flow Rate (L/min) 2 Oxygen Delivery Method Room Air Weight: 268 lb 8.368 oz Body Mass Index (BMI) 42.0 Intake & Output: Intake and Output for Last 24 Hours 03/21/25 03/22/25 03/23/25 23:59 23:59 23:59 Intake Total 1121.31 / 1121.31 450 / 570 420 / 420 Output Total 0 / 0 0 / 0 0 / 0 Balance 1121.31 / 1121.31 450 / 570 420 / 420 Lab / Micro Data 03/23/25 05:44 03/23/25 05:44 Labs: Laboratory Results - last 24 hr 03/23/25 05:44: WBC 11.8 H, RBC 3.88 L, Hgb 11.5 L, Hct 37.5, MCV 96.6, MCH 29.6, MCHC 30.7 L, RDW Std Deviation 53.0 H, RDW Coeff of Terry 15.1 H, Plt Count 153, MPV 10.6, Immature Gran % (Auto) 0.500, Neut % (Auto) 72.4 H, Lymph % (Auto) 15.5 L, Lyon % (Auto) 9.8, Eos % (Auto) 1.6, Baso % (Auto) 0.2, Absolute Neuts (auto) 8.5 H, Absolute Lymphs (auto) 1.83, Nucleated RBC % 0, Sodium 147 H, Potassium 4.0, Chloride 105, Carbon Dioxide 32.2 H, Anion Gap 9, BUN 40 H, Creatinine 1.21 H, Estim Creat Clear Calc 53.50, Est GFR (MDRD) Non-Af 46 L, BUN/Creatinine Ratio 33.2 H, Glucose 90, Calcium 8.6 Micro: Microbiology 03/18/25 15:24 Urine, Catheterized Urine Culture - Final Culture exhibits no growth. 03/18/25 19:14 Sputum, Induced/Lukens Gram Stain - Final 03/18/25 19:14 Sputum, Induced/Lukens Respiratory Culture - Final Mixed normal respiratory talya. No Streptococcus pneumoniae, beta-hemolytic Streptococcus or Staphylococcus aureus isolated. 03/18/25 15:18 Blood Culture (Wb) - Anticubital Left Blood Culture - Preliminary No growth in 48 hours. 03/18/25 15:18 Blood Culture (Wb) - Anticubital Right Blood Culture - Preliminary No growth in 48 hours. 03/19/25 08:25 Gastric Fluid/Contents Gastric Occult Blood - Final Occult Blood Positive 03/18/25 20:15 Mucosa - Nasopharyngeal Respiratory Panel (PCR) - Final Physical Exam Const oriented x3 and no apparent distress Constitutional Narrative: class II obesity General Appearance: cooperative HEENT normocephalic and head/scalp atraumatic Eyes EOMs intact bilaterally Neck supple Lymph Lymphatic: no lymphedema noted Resp Resp Narrative: Moderately diminished breath sounds bibasilarly. No wheezes, few crackles bilaterally. on room air. Cardio regular rate, regular rhythm, S1 normal heart sound, S2 normal heart sound and no murmurs GI normal to inspection, nondistended, normoactive bowel sounds, soft to palpation and non-tender GI Narrative: Obese abdomen Extremity no clubbing, cyanosis or edema and no calf tenderness General Extremity: no tenderness to palpation of joints or extremities Skin General Skin Exam: no breakdown Neuro CN's II-XII intact bilaterally and no focal motor deficits Neuro Narrative: I Motor Exam: general weakness Psych thought process normal and cooperative Appearance: appropriate Assessment & Plan Assessment/Plan (1) Acute respiratory failure with hypoxia and hypercapnia: (2) Shock: PLAN: Plan #Undifferentiated shock * Etiology is not clear. She was admitted with altered mental status and hypotension as well as acute renal failure. * She was unresponsive to fluids so central line was placed and she was started on pressors. She was also in respiratory distress so was intubated * CT chest abdomen and pelvis showed only infrarenal saccular aortic aneurysm measuring 3.8 x 4.5 x 5.5 cm * CTA also did not show any evidence of rupture of the saccular aortic aneurysm * Blood and urine cultures pending. Critical care on board. On broad-spectrum antibiotics-meropenem * now off steroids. * Limited echo done showed normal ventricular size with moderate concentric left ventricular hypertrophy and hyperdynamic left ventricular systolic function with left ventricular EF of 75% and no regional wall motion abnormality seen * weaned off levophed today.WBC is down to 11.9 * on midodrine * ID to evaluate tomorrow to determine duration of antibiotics * #Acute hypoxic and hypercapnic respiratory failure * was intubated on admission, but now extubated. On room air. * Breathing treatments and bronchodilators. Titrate oxygen to maintain saturation above 90%. #Acute renal failure: * Resolving. Creatinine is down to 1.35 today * Day catheter in place. Monitor intake and output. Fluid restriction to 1500 cc daily. #History of left shoulder prosthetic infection: * On long-term antibiotics for this. Continue the antibiotics * Right shoulder x-ray showed lucencies in the soft tissues of the proximal left arm and findings can be better evaluated by CT exam if clinically warranted with exam significantly limited by patient's body habitus and positioning * CT of the shoulder done showed evidence of s/p left reverse shoulder replacement with good alignment. No evidence of infection. #Heart failure preserved EF: Has EF of 70% and stage I diastolic dysfunction per2D echo done on 03/04/2025. Limited echo ordered. #Infrarenal aneurysm * CTA of the abdomen showed the infrarenal saccular aortic aneurysm measuring 3.8 x 4.5 x 5.5 cm as above. * Follow-up with PCP for further workup and referral on outpatient basis as needed * #Restless leg syndrome: on pramipexole. #Hypertension: BP meds on hold due to hypotension and shock. On midodrine #Depression and anxiety: on mirtazapine. DVT prophylaxis: SCDs, Lovenox Disposition: Discharge to TCU pending pre-CERT once medically stable Charges/Coding Visit Charges Inpatient E&M: 94597 Subs Hosp L2 03/23/25 1707 <Electronically signed by Otilia Hernandez MD> Otilia Hernandez MD Cosigner Signature (if applicable): CC: ~ Signed [facility] Work Phone: [phone]) 848-891809-20-2025 Progress note Author Otilia [facility] Note Date/Time March 22, 2025 3:17pm [facility] Medical Records Department [address] [place] [address] Progress Note 03/22/25 1015 MR#: [id number] Acct: [id number] Name: OSCAR WOO Rep #:[id number] : 1950 75 From: Otilia Hernandez MD PCP: Dr. Kamar Grimes MD Status:ADM IN Location: [place] [address] 1 Subjective Subjective Patient seen and examined. She had no complaints today and felt better. She alyson 2 L of oxygen. She had an uneventful night. Review of systems otherwise negative. Her nurse tells me that patient's granddaughter called and said that had been at problem with mold in patient's apartment and the landlord had informed patient's granddaughter that another tenant in the building had been sent to the hospital due to mold. Patient does not seem to be aware of this andis currently not feeling short of breath. She was actually on room air at time I reviewed her. Labs and vitals reviewed. Objective Data Objective Data Vital Signs: Vital Signs Temp Pulse Resp BP Pulse Ox O2 Del Method O2 Flow Rate 97.3 F L 97 15 118/76 97 Room Air 2 03/22/25 08:07 03/22/25 09:00 03/22/25 09:00 03/22/25 08:07 03/22/25 09:20 03/22/25 09:00 03/22/25 09:20 FiO2 25 03/20/25 08:00 Oxygen Flow Rate (L/min) 2 Oxygen Delivery Method Room Air Weight: 253 lb 8.505 oz Body Mass Index (BMI) 39.6 Intake & Output: Intake and Output for Last 24 Hours 03/20/25 03/21/25 03/22/25 23:59 23:59 23:59 Intake Total 2298.52 / 2300.40 1121.31 / 1121.31 250 / 250 Output Total 2700 / 2700 0 / 0 0 / 0 Balance -401.48 / -399.60 1121.31 / 1121.31 250 / 250 Lab / Micro Data 03/22/25 05:48 03/22/25 05:48 Labs: Laboratory Results - last 24 hr 03/22/25 05:48: WBC 11.9 H, RBC 3.93 L, Hgb 11.7 L, Hct 37.2, MCV 94.7, MCH 29.8, MCHC 31.5 L, RDW Std Deviation 52.0 H, RDW Coeff of Terry 15.0 H, Plt Count 146 L, MPV 10.2, Immature Gran % (Auto) 0.600, Neut % (Auto) 90.1 H, Lymph % (Auto) 5.1 L, Lyon % (Auto) 4.1, Eos % (Auto) 0.0, Baso % (Auto) 0.1, Absolute Neuts (auto) 10.8 H, Absolute Lymphs (auto) 0.61 L, Nucleated RBC % 0, Sodium 142, Potassium 3.6, Chloride 103, Carbon Dioxide 32.5 H, Anion Gap 7, BUN 41 H, Creatinine 1.10, Estim Creat Clear Calc 56.98, Est GFR (MDRD) Non-Af 52 L, BUN/Creatinine Ratio 37.1 H, Glucose 122 H, Calcium 8.6 Micro: Microbiology 03/18/25 15:24 Urine, Catheterized Urine Culture - Final Culture exhibits no growth. 03/18/25 19:14 Sputum, Induced/Lukens Gram Stain - Final 03/18/25 19:14 Sputum, Induced/Lukens Respiratory Culture - Final Mixed normal respiratory talya. No Streptococcus pneumoniae, beta-hemolytic Streptococcus or Staphylococcus aureus isolated. 03/18/25 15:18 Blood Culture (Wb) - Anticubital Left Blood Culture - Preliminary No growth in 48 hours. 03/18/25 15:18 Blood Culture (Wb) - Anticubital Right Blood Culture - Preliminary No growth in 48 hours. 03/19/25 08:25 Gastric Fluid/Contents Gastric Occult Blood - Final Occult Blood Positive 03/18/25 20:15 Mucosa - Nasopharyngeal Respiratory Panel (PCR) - Final Physical Exam Const oriented x3 and no apparent distress Constitutional Narrative: class II obesity General Appearance: cooperative HEENT normocephalic and head/scalp atraumatic Eyes EOMs intact bilaterally Neck supple Lymph Lymphatic: no lymphedema noted Resp Resp Narrative: Moderately diminished breath sounds bibasilarly. No wheezes, few crackles bilaterally. on room air. Cardio regular rate, regular rhythm, S1 normal heart sound, S2 normal heart sound and no murmurs GI normal to inspection, nondistended, normoactive bowel sounds, soft to palpation and non-tender GI Narrative: Obese abdomen Extremity no clubbing, cyanosis or edema and no calf tenderness General Extremity: no tenderness to palpation of joints or extremities Skin General Skin Exam: no breakdown Neuro CN's II-XII intact bilaterally and no focal motor deficits Neuro Narrative: I Motor Exam: general weakness Psych thought process normal and cooperative Appearance: appropriate Assessment & Plan Assessment/Plan (1) Acute respiratory failure with hypoxia and hypercapnia: (2) Shock: PLAN: Plan #Undifferentiated shock * Etiology is not clear. She was admitted with altered mental status and hypotension as well as acute renal failure. * She was unresponsive to fluids so central line was placed and she was started on pressors. She was also in respiratory distress so was intubated * CT chest abdomen and pelvis showed only infrarenal saccular aortic aneurysm measuring 3.8 x 4.5 x 5.5 cm * CTA also did not show any evidence of rupture of the saccular aortic aneurysm * Blood and urine cultures pending. Critical care on board. On broad-spectrum antibiotics-meropenem * now off steroids. * Limited echo done showed normal ventricular size with moderate concentric left ventricular hypertrophy and hyperdynamic left ventricular systolic function with left ventricular EF of 75% and no regional wall motion abnormality seen * weaned off levophed today.WBC is down to 11.9 * on midodrine * #Acute hypoxic and hypercapnic respiratory failure * was intubated on admission, but now extubated. On room air. * Breathing treatments and bronchodilators. Titrate oxygen to maintain saturation above 90%. #Acute renal failure: Resolving. Creatinine is down to 1.35 today Day catheter in place. Monitor intake and output. Fluid restriction to 1500 cc daily. #History of left shoulder prosthetic infection: * On long-term antibiotics for this. Continue the antibiotics * Right shoulder x-ray showed lucencies in the soft tissues of the proximal left arm and findings can be better evaluated by CT exam if clinically warranted with exam significantly limited by patient's body habitus and positioning * CT of the shoulder done today showed evidence of s/p left reverse shoulder replacement with good alignment. No evidence of infection. #Heart failure preserved EF: Has EF of 70% and stage I diastolic dysfunction per2D echo done on 03/04/2025. Limited echo ordered. #Infrarenal aneurysm * CTA of the abdomen showed the infrarenal saccular aortic aneurysm measuring 3.8 x 4.5 x 5.5 cm as above. * Follow-up with PCP for further workup and referral on outpatient basis as needed * #Restless leg syndrome: on pramipexole. Will resume #Hypertension: BP meds on hold due to hypotension and shock. On midodrine #Depression and anxiety: on mirtazapine. 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 Kamar Grimes MD Status:ADM IN Location: [address] 1 Objective Data Objective Data Vital Signs: Vital Signs Last response 3 Temperature 36.3 C L 03/22/25 10:00 Temperature Source Temporal 03/22/25 10:00 Pulse Rate 81 03/22/25 11:13 Pulse Strength Normal (2+) 03/22/25 10:00 Respiratory Rate 15 03/22/25 11:13 Respiratory Effort Normal, Non-Labored 03/22/25 08:00 Respiratory Depth Normal 03/22/25 08:00 Respiratory Pattern Normal 03/22/25 11:13 Blood Pressure 106/58 L 03/22/25 10:00 Blood Pressure Mean 74 03/22/25 10:00 Blood Pressure Source Monitor 03/22/25 10:00 Blood Pressure Position Sitting 03/22/25 10:00 Blood Pressure Location Left Arm 03/22/25 10:00 Pulse Ox 98 03/22/25 10:00 Oxygen Delivery Method Nasal Cannula 03/22/25 10:00 Oxygen Flow Rate (L/min) 2 03/22/25 10:00 Fraction of Inspired Oxygen (FIO2) 25 03/20/25 08:00 EtCo2 - Document during CPR and with ROSC 79 03/18/25 17:30 CLA-BSI maintained Yes: 5 Fr 03/20/25 02:00 I&O: I&O Last 24 Hours 3 03/21/25 03/22/25 03/22/25 23:59 11:59 23:59 Intake Total 690.48 / 1121.31 350 / 350 Output Total 0 / 0 0 / 0 Balance 690.48 / 1121.31 350 / 350 I&O: Total Stay 3 03/18/25 14:53 thru 03/22/25 10:18 Intake Total 9694.60 Output Total 6755 Balance 2919.60 Current Meds Ordered / Administered: Current meds ordered / Administered 3 Generic Name Dose Route Start Last Admin Trade Name Freq PRN Reason Stop Dose Admin Albuterol Sulfate 2.5 mg 03/18/25 20:43 Albuterol 2.5 Mg/3 Ml Vial.Neb. INHALATION Q2H PRN PRN SOB &/OR WHEEZING Albuterol/Ipratropium 3 ml 03/21/25 21:05 03/22/25 11:12 Ipratropium/Albuterol Sulfate 3 Ml Ampul.Neb INHALATION 3 ml Q4HWA.RT KACEY Administration Aspirin 81 mg 03/18/25 22:00 03/22/25 09:49 Aspirin 81 Mg Tab.Chew PO 81 mg BID KACEY Administration Bupropion HCl 150 mg 03/23/25 10:00 Bupropion (Xl) 150 Mg Tablet.Xl PO DAILY KACEY Duloxetine HCl 30 mg 03/23/25 10:00 Duloxetine Hcl 30 Mg Capsule PO DAILY KACEY Enoxaparin Sodium 40 mg 03/21/25 06:00 03/22/25 06:19 Enoxaparin 40 Mg/0.4 Ml Syringe SC 40 mg DAILY@0600 KACEY Administration Gabapentin 600 mg 03/20/25 22:00 03/21/25 20:31 Gabapentin 600 Mg Tablet PO 600 mg QHS KACEY Administration Hydrocortisone Sodium Succinate 50 mg 03/19/25 12:00 03/22/25 11:37 Hydrocortisone Sod Succinate 100 Mg/2 Ml Vial IV 50 mg Q6 KACEY Administration Norepinephrine Bitartrate 8 mg 250 mls @ 9.375 mls/hr 03/18/25 18:10 03/22/2506:04 / Sodium Chloride CONT INF Not Given .[id number] KACEY Protocol 5 MCG/MIN Pantoprazole Sodium 40 mg/ 100 mls @ 300 mls/hr 03/19/25 10:00 03/22/25 10:18 Sodium Chloride IV Infused Q24 KACEY Infusion Meropenem 1 gm/ Sodium 100 mls @ 33 mls/hr 03/19/25 10:00 03/22/25 11:36 Chloride IV 33 mls/hr Q12 KACEY Administration Sodium Chloride 250 mls @ 15 mls/hr 03/18/25 21:14 03/22/25 06:04 IV Infused .[id number] PRN Infusion Saline Flush Sodium Chloride 250 mls @ 15 mls/hr 03/18/25 21:14 IV .[id number] PRN Additional IVPB Infusion Sodium Chloride 1,000 mls @ 1 mls/hr 03/18/25 21:14 IV .Q48H PRN Saline Flush Midodrine 10 mg 03/21/25 06:00 03/22/25 11:37 Midodrine Hcl 5 Mg Tablet PO 10 mg TIDCM KACEY Administration Mirtazapine 15 mg 03/22/25 22:00 Mirtazapine 15 Mg Tablet PO QHS KACEY Pramipexole Dihydrochloride 1 mg 03/20/25 22:00 03/22/25 00:37 Pramipexole Di-Hcl 1 Mg Tablet PO 1 mg QHS KACEY Administration Pramipexole Dihydrochloride 0.5 mg 03/21/25 08:00 03/21/25 20:32 Pramipexole Di-Hcl 0.5 Mg Tablet PO 0.5 mg BIDCM KACEY Administration Senna/Docusate Sodium 2 tablet 03/18/25 20:43 Senna/Docusate Sodium 1 Tablet PO BID PRN PRN Constipation Sodium Chloride 10 - 40 ml 03/18/25 21:14 03/21/25 17:35 0.9% Saline Lock 10 Ml Syringe IV 10 ml UD PRN Administration SALINE FLUSH Lab / Micro Data 03/22/25 05:48 03/22/25 05:48 Labs: Laboratory Results - last 24 hr 03/22/25 05:48: WBC 11.9 H, RBC 3.93 L, Hgb 11.7 L, Hct 37.2, MCV 94.7, MCH 29.8, MCHC 31.5 L, RDW Std Deviation 52.0 H, RDW Coeff of Terry 15.0 H, Plt Count 146 L, MPV 10.2, Immature Gran % (Auto) 0.600, Neut % (Auto) 90.1 H, Lymph % (Auto) 5.1 L, Lyon % (Auto) 4.1, Eos % (Auto) 0.0, Baso % (Auto) 0.1, Absolute Neuts (auto) 10.8 H, Absolute Lymphs (auto) 0.61 L, Nucleated RBC % 0, Sodium 142, Potassium 3.6, Chloride 103, Carbon Dioxide 32.5 H, Anion Gap 7, BUN 41 H, Creatinine 1.10, Estim Creat Clear Calc 56.98, Est GFR (MDRD) Non-Af 52 L, BUN/Creatinine Ratio 37.1 H, Glucose 122 H, Calcium 8.6 Assessment and Plan . Assessment and plan: Patient seen and examined Chart and data reviewed TX out of ICU earlier today She is awake and alert - NAD Breathing RA comfortably Data reviewed CX NGTD Exam unremarkable OK to wean hydrocortisone off We are available as needed The entirety of this encounter was done via Telemedicine 03/22/25 1232 <Electronically signed by John Quinn MD> Cosigner Signature (if applicable): CC: ~ Signed [facility] Work Phone: [phone] 414-328909-19-2025 Progress note Author Otilia Hernandez [facility] Note Date/Time March 21, 2025 5:21pm [facility] Medical Records Department [address] [place] [address] Progress Note 03/21/25 1207 MR#: [id number] Acct: [id number] Name: OSCAR WOO Rep #:[id number] : 1950 75 From: Otilia Hernandez MD PCP: Dr. Kamar Grimes MD Status:ADM IN Location: ICU ICU02-1 Subjective Subjective Patient seen and examined. She had no complaints. Comfortably in her chair. Review of systems otherwise negative. She did have to be started again on Levophed drip overnight. She is still low-dose Levophed. Review of systems otherwise negative. Objective Data Objective Data Vital Signs: Vital Signs Temp Pulse Resp BP Pulse Ox O2 Del Method O2 Flow Rate 96.7 F L 80 20 H 104/68 93 Nasal Cannula 2 03/21/25 07:59 03/21/25 11:39 03/21/25 11:39 03/21/25 11:30 03/21/25 11:39 03/21/25 11:39 03/21/25 11:39 FiO2 25 03/20/25 08:00 Oxygen Flow Rate (L/min) 2 Oxygen Delivery Method Nasal Cannula Weight: 253 lb 8.505 oz Body Mass Index (BMI) 39.6 Intake & Output: Intake and Output for Last 24 Hours 03/19/25 03/20/25 03/21/25 23:59 23:59 23:59 Intake Total 4211.40 / 4285.70 2298.52 / 2300.40 310.35 / 310.35 Output Total 2975 / 2975 2700 / 2700 0 / 0 Balance 1236.40 / 1310.70 -401.48 / -399.60 310.35 / 310.35 Lab / Micro Data 03/21/25 06:00 03/21/25 06:00 Labs: Laboratory Results - last 24 hr 03/20/25 20:05: Vancomycin Trough 15.6 H 03/21/25 06:00: WBC 15.7 H, RBC 4.23, Hgb 12.5, Hct 39.0, MCV 92.2 D, MCH 29.6,MCHC 32.1 D, RDW Std Deviation 50.4 H, RDW Coeff of Terry 15.2 H, Plt Count 171, MPV 10.1, Immature Gran % (Auto) 0.800, Neut % (Auto) 90.8 H, Lymph % (Auto) 3.4L, Lyon % (Auto) 4.6, Eos % (Auto) 0.1, Baso % (Auto) 0.3, Absolute Neuts (auto)14.3 H, Absolute Lymphs (auto) 0.54 L, Nucleated RBC % 0, Sodium 141, Potassium 3.5, Chloride 100, Carbon Dioxide 30.8, Anion Gap 10, BUN 41 H, Creatinine 1.35 H, Estim Creat Clear Calc 46.43 L, Est GFR (MDRD) Non-Af 41 L, BUN/Creatinine Ratio 30.4 H, Glucose 117 H, Calcium 8.5 Micro: Microbiology 03/18/25 15:24 Urine, Catheterized Urine Culture - Final Culture exhibits no growth. 03/18/25 19:14 Sputum, Induced/Lukens Gram Stain - Final 03/18/25 19:14 Sputum, Induced/Lukens Respiratory Culture - Final Mixed normal respiratory talya. No Streptococcus pneumoniae, beta-hemolytic Streptococcus or Staphylococcus aureus isolated. 09/16/25 15:18 Blood Culture (Wb) - Anticubital Left Blood Culture - Preliminary No growth in 48 hours. 03/18/25 15:18 Blood Culture (Wb) - Anticubital Right Blood Culture - Preliminary No growth in 48 hours. 03/19/25 08:25 Gastric Fluid/Contents Gastric Occult Blood - Final Occult Blood Positive 03/18/25 20:15 Mucosa - Nasopharyngeal Respiratory Panel (PCR) - Final Physical Exam Const oriented x3 and no apparent distress Constitutional Narrative: class II obesity General Appearance: cooperative HEENT normocephalic and head/scalp atraumatic Eyes EOMs intact bilaterally Neck supple Lymph Lymphatic: no lymphedema noted Resp Resp Narrative: Moderately diminished breath sounds bibasilarly. No wheezes, few crackles bilaterally. on 2L of oxygen Cardio regular rate, regular rhythm, S1 normal heart sound, S2 normal heart sound and no murmurs GI normal to inspection, nondistended, normoactive bowel sounds, soft to palpation and non-tender GI Narrative: Obese abdomen Extremity no clubbing, cyanosis or edema and no calf tenderness General Extremity: no tenderness to palpation of joints or extremities Skin General Skin Exam: no breakdown Neuro CN's II-XII intact bilaterally and no focal motor deficits Neuro Narrative: I Motor Exam: general weakness Psych thought process normal and cooperative Appearance: appropriate Assessment & Plan Assessment/Plan (1) Acute respiratory failure with hypoxia and hypercapnia: (2) Shock: PLAN: Plan #Undifferentiated shock * Etiology is not clear. She was admitted with altered mental status and hypotension as well as acute renal failure. * She was unresponsive to fluids so central line was placed and she was started on pressors. She was also in respiratory distress so was intubated * CT chest abdomen and pelvis showed only infrarenal saccular aortic aneurysm measuring 3.8 x 4.5 x 5.5 cm * CTA also did not show any evidence of rupture of the saccular aortic aneurysm * Blood and urine cultures pending. Critical care on board. On broad-spectrum antibiotics. * now off steroids. * Limited echo done showed normal ventricular size with moderate concentric left ventricular hypertrophy and hyperdynamic left ventricular systolic function with left ventricular EF of 75% and no regional wall motion abnormality seen * She had to be put back on Levophed again overnight and remains on low dose of Levophed. * wbc today is 17, but she was on steroids. * #Acute hypoxic and hypercapnic respiratory failure * Extubated and now on 2 L of oxygen. * Breathing treatments and bronchodilators. Titrate oxygen to maintain saturation above 90%. #Acute renal failure: Resolving. Creatinine is down to 1.35 today Day catheter in place. Monitor intake and output. Fluid restriction to 1500 cc daily. #History of left shoulder prosthetic infection: * On long-term antibiotics for this. Continue the antibiotics * Right shoulder x-ray showed lucencies in the soft tissues of the proximal left arm and findings can be better evaluated by CT exam if clinically warranted with exam significantly limited by patient's body habitus and positioning * CT of the shoulder done today showed evidence of s/p left reverse shoulder replacement with good alignment. No evidence of infection. #Heart failure preserved EF: Has EF of 70% and stage I diastolic dysfunction per2D echo done on 03/04/2025. Limited echo ordered. #Infrarenal aneurysm * CTA of the abdomen showed the infrarenal saccular aortic aneurysm measuring 3.8 x 4.5 x 5.5 cm as above. * Follow-up with PCP for further workup and referral on outpatient basis as needed * #Restless leg syndrome: Oral meds on hold currently. #Hypertension: BP meds on hold due to hypotension and shock #Depression and anxiety: Meds also on hold as she is intubated DVT prophylaxis: SCDs, Lovenox Charges/Coding Visit Charges Inpatient E&M: 53881 Subs Hosp L2 03/21/25 1721 <Electronically signed by Otilia Hernandez MD> Otilia Hernandez MD Cosigner Signature (if applicable): CC: ~ Signed [facility] Work Phone: 1(124) 793-936809-19-2025 Progress note Author Sixto Andrade [facility] Note Date/Time March 21, 2025 10:21am [facility] Medical Records Department [address] [place] [address] Progress Note - Infect Disease 03/21/25 1019 MR#: [id number] Acct: [id number] Name: OSCAR WOO Rep #:[id number] : 1950 75 From: Sixto calhoun MD PCP: Dr. Kamar Grimes MD Status:ADM IN Location: ICU ICU02-1 Physical Exam Narrative Feeling well, no fever, no cough or dyspnea, no abd pain, no n/v/d. Const alert and no apparent distress General Appearance: cooperative Resp normal air movement and clear to auscultation bilaterally Cardio regular rate and regular rhythm GI soft to palpation, non-tender and non-distended Skin no rashes or lesions noted ID ID: Route of nutrition/ use of supplements: [] Nutritional Intake: [] IV Site: [] Day Catheter: [] Assessment & Plan Assessment/Plan (1) Shock: PLAN: Unclear cause. ELVIA improved. Now off pressors and vent. No fever overnight. Bcx, sputum cx, and ucx neg so far. Stool showed blood. Ordered CT shoulder given 08/2024 MRSA/MSSA L shoulder PJI; reports compliance with suppressive po doxy as outpt. CT showed no abscess, exam is benign. On empiric vanc/eddie. Will stop vanc. Plan at this point is for 5-7 days empiric course of abx then resume home doxycycline po. Will follow (2) Acute on chronic respiratory failure with hypoxia and hypercapnia: (3) Infection of prosthetic shoulder joint: 03/21/25 1021 <Electronically signed by Sixto Andrade MD> Cosigner Signature (if applicable): CC: ~ Signed [facility] Work Phone: 1([phone] 279-702809-19-2025 Progress note Author Antwan Gardner [facility] Note Date/Time March 21, 2025 8:54am [facility] Medical Records Department [address] [place] [address] Progress Note - Trimmer Machine Operator 03/21/25 0720 MR#: [id number] Acct: [id number] Name: OSCAR WOO Rep #:[id number] : 1950 75 From: Antwan Garnder DO PCP: Dr. Kamar Grimes MD Status:ADM IN Location: ICU ICU02-1 Assessment & Plan Assessment/Plan (1) Shock: PLAN: Plan RECOMMENDATIONS: 1. Supplemental oxygen to maintain saturations at or above 90%. 2. Start scheduled midodrine in hopes that the Levophed can be weaned off completely this morning. 3. Continue antimicrobial therapy, with plans to complete 7 days of treatment duration. 4. Continue stress dose steroids. Will begin to wean once the vasopressor support has been discontinued. 5. Continue appropriate DVT prophylaxis. 6. PT/OT to work with the patient. IMPRESSIONS: 1. Undifferentiated shock Improving. Unclear precipitating etiology. Septic and hypovolemic etiologies seem to be the most probable. However, no definitive source of infection has yet to be identified. Cultures have been negative to date. With supportive care, including IV fluid resuscitation and vasopressor support, the patient has improved clinically. The patient has been nearly weaned off of Levophed. Will continue to wean as tolerated to maintain mean arterial pressure at or above 65 mmHg. In the interim, we will start scheduled midodrine today. Continue stress dose steroids until the patient has been weaned off of Levophed completely. In light of the patient's history of prosthetic joint infection, CT imaging of the upper extremity was obtained but was negative for infection. Echocardiogram revealed intact, normal systolic function without any significant valvular abnormalities. 2. Acute respiratory failure with hypoxemia and hypercapnia Improving. Potentially related to increased metabolic demand of #1. No discernible underlying pulmonary pathology was identified on imaging. Again, with supportive care, including invasive mechanical ventilatory support, the patient has improved clinically. She was ultimately able to be extubated on March 20. Continue to wean supplemental oxygen to maintain saturations at or above 90%. Encourage incentive spirometer use and mobilize patient as tolerated. 3. Acute kidney injury Improving. Most likely prerenal in etiology in the setting of #1. Creatinine has improved with volume expansion and stabilization of hemodynamics. Continue to monitor urine output. No current indication for renal replacement therapy. 4. Encephalopathy Resolved. Most likely toxic/metabolic in nature in the setting of #1. CT head was unremarkable. TSH is within normal limits. Continue current supportive care. 5. History of prosthetic joint infection/history of AAA/restless leg syndrome/depression/anxiety/obesity Complicates care, management, recovery and prognosis. Continue supportive care as noted above. PT/OT to work with the patient. This note was generated with [employer] dictation software. It may contain incorrectwords, spelling, and punctuation that were not noted in checking the note beforesigning. Subjective Subjective The patient was seen and examined at the bedside this morning. Events from the last 24 hours have been reviewed. The patient still remains on low-dose Levophed to maintain hemodynamic stability. However, there is some question as to the accuracy of her cuff pressures. Oxygenation status is stable on 3 L/min. The patient is documented to be overall net +1.6 L for the hospitalization. Creatinine has continued to improve at 1.35. The patient has been tolerant of adiet. Objective Data Objective Data The patient's most recent lab work, culture data and imaging studies have all been personally reviewed. Gastric occult blood was positive. Infectious workupto date has been largely unrevealing. Vital Signs: Vital Signs Temp Pulse Resp BP Pulse Ox O2 Del Method O2 Flow Rate 99 F 92 12 99/75 95 Nasal Cannula 3 03/21/25 04:00 03/21/25 07:00 03/21/25 07:00 03/21/25 07:00 03/21/25 07:00 03/21/25 07:00 03/21/25 07:00 FiO2 25 03/20/25 08:00 Oxygen Flow Rate (L/min) 3 Oxygen Delivery Method Nasal Cannula Weight: 253 lb 8.505 oz Body Mass Index (BMI) 39.6 Intake & Output: Intake and Output for Last 24 Hours 03/19/25 03/20/25 03/21/25 23:59 23:59 23:59 Intake Total 4211.40 / 4285.70 2298.52 / 2300.40 72.46 / 72.46 Output Total 2975 / 2975 2700 / 2700 Balance 1236.40 / 1310.70 -401.48 / -399.60 72.46 / 72.46 Lab / Micro Data Attestation: I reviewed the patient's lab results. 03/21/25 06:00 03/21/25 06:00 Labs: Laboratory Results - last 24 hr 03/20/25 20:05: Vancomycin Trough 15.6 H 03/21/25 06:00: WBC 15.7 H, RBC 4.23, Hgb 12.5, Hct 39.0, MCV 92.2 D, MCH 29.6,MCHC 32.1 D, RDW Std Deviation 50.4 H, RDW Coeff of Terry 15.2 H, Plt Count 171, MPV 10.1, Immature Gran % (Auto) 0.800, Neut % (Auto) 90.8 H, Lymph % (Auto) 3.4L, Lyon % (Auto) 4.6, Eos % (Auto) 0.1, Baso % (Auto) 0.3, Absolute Neuts (auto)14.3 H, Absolute Lymphs (auto) 0.54 L, Nucleated RBC % 0, Sodium 141, Potassium 3.5, Chloride 100, Carbon Dioxide 30.8, Anion Gap 10, BUN 41 H, Creatinine 1.35 H, Estim Creat Clear Calc 46.43 L, Est GFR (MDRD) Non-Af 41 L, BUN/Creatinine Ratio 30.4 H, Glucose 117 H, Calcium 8.5 Micro: Microbiology 03/18/25 15:18 Blood Culture (Wb) - Anticubital Left Blood Culture - Preliminary No growth in 48 hours. 03/18/25 15:18 Blood Culture (Wb) - Anticubital Right Blood Culture - Preliminary No growth in 48 hours. 03/18/25 15:24 Urine, Catheterized Urine Culture - Preliminary Culture exhibits no growth. 03/18/25 19:14 Sputum, Induced/Lukens Gram Stain - Final 03/18/25 19:14 Sputum, Induced/Lukens Respiratory Culture - Preliminary Appears to be normal respiratory talya. Further studies to follow. 03/19/25 08:25 Gastric Fluid/Contents Gastric Occult Blood - Final Occult Blood Positive 03/18/25 20:15 Mucosa - Nasopharyngeal Respiratory Panel (PCR) - Final ABG Data ABG results: ABG 03/19/25 08:13 Specimen Type ART Sample Site Art Line pH 7.46 H Bicarbonate Actual 34.3 H Total CO2 36 Base Excess 10 H O2 Saturation 93 L O2 % 35.0 ABG pCO2 48.5 H ABG pO2 63 L Respiration Rate 14 O2 Delivery Device Adult Vent Vent Mode AC Tidal Volume 400.0 POC PEEP 5 Radiography Diagnostic Testing: Radiology Impression Upper Extremity CT 03/20/25 09:45 IMPRESSION: Status post left reverse shoulder replacement. There is good alignment. Reading Location: [facility] Physical Exam Const alert, oriented x3 and no apparent distress Constitutional Narrative: Sitting at the bedside eating breakfast. HEENT normocephalic, head/scalp atraumatic and moist oral mucous membranes Eyes PERRL, EOMs intact bilaterally and conjunctivae normal Neck supple General: trachea midline Chest inspection of chest normal Resp normal respiratory effort Auscultation: Negative for rales, rhonchi or wheezes Cardio regular rate and regular rhythm GI normal to inspection, nondistended, normoactive bowel sounds Extremity no clubbing, cyanosis or edema Skin no rashes or lesions noted Neuro oriented x3, CN's II-XII intact bilaterally and moves all extremities Psych cooperative and affect normal Charges/Coding Visit Charges Inpatient E&M: 88452 Subs Hosp L3 03/21/25 0854 <Electronically signed by Antwan Gardner DO> Cosigner Signature (if applicable): CC: ~ Signed [facility] Work Phone: [phone]) [phone] Consult note Author Saroj Rodriguez [facility] Note Date/Time March 20, 2025 9:23pm [facility] Medical Records Department [address] [place] [address] Pharmacokinetic/Renal -Consult 03/20/252121 MR#: [id number] Acct: [id number] Name: OSCAR WOO Rep #:[id number] : 1950 75 From: Saroj العراقي od PCP: Dr. Kamar Grimes MD Status:ADM IN Y Location: ICU ICU02-1 Consult Antibiotic Management Pharmacy has been consulted to manage selected antibiotic: Vancomycin Type of Intervention Type of Consult: Follow-up Labs Labs: Sodium 139 mmol/L (133-145) 03/20/25 04:24 Potassium 3.6 mmol/L (3.3-5.1) 03/20/25 04:24 Chloride 95 mmol/L (98-108) L 03/20/25 04:24 Carbon Dioxide 31.0 mmol/L (21.0-32.0) 03/20/25 04:24 Anion Gap 13 (5-15) 03/20/25 04:24 BUN 38 mg/dL (4-19) H 03/20/25 04:24 Creatinine 1.44 mg/dL (0.70-1.20) H 03/20/25 04:24 Est GFR (MDRD) Non-Af 38 (>60) L 03/20/25 04:24 BUN/Creatinine Ratio 26.4 RATIO (10-20) H 03/20/25 04:24 Glucose 129 mg/dL (70-99) H 03/20/25 04:24 Vancomycin Trough 15.6 ug/mL (5.0-15.0) H 03/20/25 20:05 Microbiology Microbiology: Microbiology 03/18/25 15:18 Blood Culture (Wb) - Anticubital Left Blood Culture - Preliminary No growth in 48 hours. 03/18/25 15:18 Blood Culture (Wb) - Anticubital Right Blood Culture - Preliminary No growth in 48 hours. 03/18/25 15:24 Urine, Catheterized Urine Culture - Preliminary Culture exhibits no growth. 03/18/25 19:14 Sputum, Induced/Lukens Gram Stain - Final 03/18/25 19:14 Sputum, Induced/Lukens Respiratory Culture - Preliminary Appears to be normal respiratory talya. Further studies to follow. 03/19/25 08:25 Gastric Fluid/Contents Gastric Occult Blood - Final Occult Blood Positive 03/18/25 20:15 Mucosa - Nasopharyngeal Respiratory Panel (PCR) - Final Goal Trough Goal Trough: 15-20 mcg/mL Pharmacy Plan for Drug Dosing Pharmacy Plan for Drug Dosing: Pharmacy Service will continue to monitor and adjust dosing as required. TROUGH 15.6 @ 22 HOURS. NO CHANGES, FOLLOW UP TROUGH IN 2 DAYS Follow-Up Labs Follow-Up Labs: Trough: Vancomycin Date/Time Labs Ordered Labs to be done on [date and time ordered]: 03/22 @ 2100 03/20/252122 <Electronically signed by Saroj martines> Date _ Saroj Herndon Signature (if applicable): Date CC: ~ Signed [facility] Work Phone: 1([phone] 309-397809-18-2025 Progress note Author Otilia Hernandez [facility] Note Date/Time March 20, 2025 4:05pm [facility] Medical Records Department [address] [place] [address] Progress Note 03/20/25 1352 MR#: [id number] Acct: [id number] Name: OSCAR WOO Rep #:[id number] : 1950 75 From: Otilia Hernandez MD PCP: Dr. Kamar Grimes MD Status:ADM IN Location: ICU ICU02-1 Subjective Subjective Patient seen and examined. She felt much better and had been extubated. She had her cousin and a friend with her. She had no active complaints and denied any fever, chills, cough, chest pain, palpitations, dizziness, nausea, vomiting or any other symptoms. Review of systems is otherwise negative. She is on 2L of oxygen by nasal canula. Objective Data Objective Data Vital Signs: Vital Signs Temp Pulse Resp BP Pulse Ox O2 Del Method O2 Flow Rate 99.4 F H 91 14 94/74 98 Nasal Cannula 2 03/20/25 10:00 03/20/25 13:00 03/20/25 13:00 03/20/25 13:00 03/20/25 13:00 03/20/25 13:00 03/20/25 13:00 FiO2 25 03/20/25 12:00 Oxygen Flow Rate (L/min) 2 Oxygen Delivery Method Nasal Cannula Weight: 251 lb 5.231 oz Body Mass Index (BMI) 39.3 Intake & Output: Intake and Output for Last 24 Hours 03/18/25 03/19/25 03/20/25 23:59 23:59 23:59 Intake Total 1713.37 / 1720.75 4211.40 / 4285.70 1776.36 / 1776.36 Output Total 1100 / 1100 2975 / 2975 2175 / 2175 Balance 613.37 / 620.75 1236.40 / 1310.70 -398.64 / -398.64 Lab / Micro Data 03/20/25 04:24 03/20/25 04:24 Labs: Laboratory Results - last 24 hr 03/20/25 04:24: WBC 13.3 H, RBC 5.03, Hgb 14.9, Hct 44.0, MCV 87.5, MCH 29.6, MCHC 33.9, RDW Std Deviation 46.7 H, RDW Coeff of Terry 14.9 H, Plt Count 221, MPV10.3, Immature Gran % (Auto) 0.700, Neut % (Auto) 90.9 H, Lymph % (Auto) 4.1 L, Lyon % (Auto) 4.1, Eos % (Auto) 0.0, Baso % (Auto) 0.2, Absolute Neuts (auto) 12.1 H, Absolute Lymphs (auto) 0.55 L, Nucleated RBC % 0, Sodium 139, Potassium 3.6, Chloride 95 L, Carbon Dioxide 31.0, Anion Gap 13, BUN 38 H, Creatinine 1.44H, Estim Creat Clear Calc 43.32 L, Est GFR (MDRD) Non-Af 38 L, BUN/Creatinine Ratio 26.4 H, Glucose 129 H, Calcium 9.0 Micro: Microbiology 03/18/25 15:18 Blood Culture (Wb) - Anticubital Left Blood Culture - Preliminary No growth in 48 hours. 03/18/25 15:18 Blood Culture (Wb) - Anticubital Right Blood Culture - Preliminary No growth in 48 hours. 03/18/25 15:24 Urine, Catheterized Urine Culture - Preliminary Culture exhibits no growth. 03/18/25 19:14 Sputum, Induced/Lukens Gram Stain - Final 03/18/25 19:14 Sputum, Induced/Lukens Respiratory Culture - Preliminary Appears to be normal respiratory talya. Further studies to follow. 03/19/25 08:25 Gastric Fluid/Contents Gastric Occult Blood - Final Occult Blood Positive 03/18/25 20:15 Mucosa - Nasopharyngeal Respiratory Panel (PCR) - Final Radiography Diagnostic Testing: Radiology Impression Upper Extremity CT 03/20/25 09:45 IMPRESSION: Status post left reverse shoulder replacement. There is good alignment. [facility] Physical Exam Const oriented x3 and no apparent distress Constitutional Narrative: class II obesity General Appearance: cooperative HEENT normocephalic and head/scalp atraumatic Eyes EOMs intact bilaterally Neck supple Lymph Lymphatic: no lymphedema noted Resp Resp Narrative: Moderately diminished breath sounds bibasilarly. No wheezes, few crackles bilaterally. on 2L of oxygen Cardio regular rate, regular rhythm, S1 normal heart sound, S2 normal heart sound and no murmurs GI normal to inspection, nondistended, normoactive bowel sounds, soft to palpation and non-tender GI Narrative: Obese abdomen Extremity no clubbing, cyanosis or edema and no calf tenderness General Extremity: no tenderness to palpation of joints or extremities Skin General Skin Exam: no breakdown Neuro CN's II-XII intact bilaterally and no focal motor deficits Neuro Narrative: I Motor Exam: general weakness Psych thought process normal and cooperative Appearance: appropriate Assessment & Plan Assessment/Plan (1) Acute respiratory failure with hypoxia and hypercapnia: (2) Shock: PLAN: Plan #Undifferentiated shock * Etiology is not clear. She was admitted with altered mental status and hypotension as well as acute renal failure. * She was unresponsive to fluids so central line was placed and she was started on pressors. She was also in respiratory distress so was intubated * CT chest abdomen and pelvis showed only infrarenal saccular aortic aneurysm measuring 3.8 x 4.5 x 5.5 cm * CTA also did not show any evidence of rupture of the saccular aortic aneurysm * Blood and urine cultures pending. Critical care on board. On broad-spectrum antibiotics. * now off steroids. * Limited echo done showed normal ventricular size with moderate concentric left ventricular hypertrophy and hyperdynamic left ventricular systolic function with left ventricular EF of 75% and no regional wall motion abnormality seen * #Acute hypoxic and hypercapnic respiratory failure * Extubated and now on 2 L of oxygen. * Breathing treatments and bronchodilators. Titrate oxygen to maintain saturation above 90%. #Acute renal failure: Resolving. Creatinine is down to 1.44. Day catheter inplace. Monitor intake and output. Fluid restriction to 1500 cc daily. #History of left shoulder prosthetic infection: * On long-term antibiotics for this. Continue the antibiotics * Right shoulder x-ray showed lucencies in the soft tissues of the proximal left arm and findings can be better evaluated by CT exam if clinically warranted with exam significantly limited by patient's body habitus and positioning * CT of the shoulder done today showed evidence of s/p left reverse shoulder replacement with good alignment. No evidence of infection. #Heart failure preserved EF: Has EF of 70% and stage I diastolic dysfunction per2D echo done on 03/04/2025. Limited echo ordered. #Infrarenal aneurysm * CTA of the abdomen showed the infrarenal saccular aortic aneurysm measuring 3.8 x 4.5 x 5.5 cm as above. * Follow-up with PCP for further workup and referral on outpatient basis as needed * #Restless leg syndrome: Oral meds on hold currently. #Hypertension: BP meds on hold due to hypotension and shock #Depression and anxiety: Meds also on hold as she is intubated DVT prophylaxis: SCDs, Lovenox Charges/Coding Visit Charges Inpatient E&M: 00983 Subs Hosp L2 03/20/25 1605 <Electronically signed by Otilia Hernandez MD> Otilia Hernandez MD Cosigner Signature (if applicable): CC: ~ Signed [facility] Work Phone: 1([phone] Consult note Author Sixto Andrade [facility] Note Date/Time March 20, 2025 10:41am [facility] Medical Records Department [address] [place] [address] Consultation - Infectious Dx 03/20/25 1035 MR#: [id number] Acct: [id number] Name: OSCAR WOO Rep #:[id number] : 1950 75 From: Sixto calhoun MD PCP: Dr. Kamar Grimes MD Status:ADM IN Location: ICU ICU02-1 Assessment & Plan Assessment/Plan (1) Shock: PLAN: Unclear cause. ELVIA improved. Now off pressors and vent. Fever overnight. Bcx, sputum cx, and ucx neg so far. Stool showed blood. Ordered CTshoulder given 08/2024 MRSA/MSSA L shoulder PJI; reports compliance with suppressive po doxy as outpt. CT showed no abscess, exam is benign. On empiricvanc/eddie. Will follow, thank you (2) Acute on chronic respiratory failure with hypoxia and hypercapnia: (3) Infection of prosthetic shoulder joint: HPI Consult Data Date of Consult: 03/20/25 HPI Narrative Reason for Consultation: shock HPI Narrative: OSCAR WOO, is a 75 F with MSSA/MRSA L shoulder PJI 08/2024, treated with iv vanc and rifampin, now continues on suppressive po doxy. Shoulder has been doing fine, no pain/redness/swelling. Reports increased dyspnea over past 1.5 weeks with mild dry cough. No fever, chills, sweats, abd pain, dysuria, rash, n/v/d. Had acute onset altered mental status, hypoxia, hypotension, hypothermia. Taken to ED, admitted to icu on vent with vanc/meropenem. Now offvent and off pressors. Family at bedside provided additional history. No recentsick contacts or travel. Full ROS performed and neg except as noted above. [facility] Medical History Infection and inflammatory reaction due [...] never substance use type: does not use Physical Exam Const alert, oriented x3 and no apparent distress General Appearance: cooperative HEENT normocephalic and head/scalp atraumatic Eyes PERRL and EOMs intact bilaterally Neck supple and No nodes Resp clear to auscultation bilaterally Auscultation: diminished lung sounds Cardio regular rate, regular rhythm and no murmurs GI soft to palpation, non-tender and non-distended Extremity Extremity Narrative: L shoulder no swelling/redness/warmth/tenderness General Extremity: edema Skin no rashes or lesions noted Neuro CN's II-XII intact bilaterally Lab / Micro Data Attestation: I reviewed the patient's lab results. 03/20/25 04:24 03/20/25 04:24 Labs: Laboratory Results - last 24 hr 03/20/25 04:24: WBC 13.3 H, RBC 5.03, Hgb 14.9, Hct 44.0, MCV 87.5, MCH 29.6, MCHC 33.9, RDW Std Deviation 46.7 H, RDW Coeff of Terry 14.9 H, Plt Count 221, MPV10.3, Immature Gran % (Auto) 0.700, Neut % (Auto) 90.9 H, Lymph % (Auto) 4.1 L, Lyon % (Auto) 4.1, Eos % (Auto) 0.0, Baso % (Auto) 0.2, Absolute Neuts (auto) 12.1 H, Absolute Lymphs (auto) 0.55 L, Nucleated RBC % 0, Sodium 139, Potassium 3.6, Chloride 95 L, Carbon Dioxide 31.0, Anion Gap 13, BUN 38 H, Creatinine 1.44H, Estim Creat Clear Calc 43.32 L, Est GFR (MDRD) Non-Af 38 L, BUN/Creatinine Ratio 26.4 H, Glucose 129 H, Calcium 9.0 Micro: Microbiology 03/18/25 15:24 Urine, Catheterized Urine Culture - Preliminary Culture exhibits no growth. 03/18/25 19:14 Sputum, Induced/Lukens Gram Stain - Final 03/18/25 19:14 Sputum, Induced/Lukens Respiratory Culture - Preliminary Appears to be normal respiratory talya. Further studies to follow. 03/19/25 08:25 Gastric Fluid/Contents Gastric Occult Blood - Final Occult Blood Positive Imaging Radiology Impression Echocardiogram 03/19/25 01:33 Interpretation Summary Normal LV size. Left ventricular systolic function is hyperdynamic. The left ventricular ejection fraction is 75 %. Small (<1.0 cm) pericardial effusion. There are no echocardiographic indications of cardiac tamponade. Moderate concentric left ventricular hypertrophy. Ordering Physician: Wally Waddell Performed By: Xavier Castano RCS Upper Extremity CT 03/20/25 09:45 IMPRESSION: Status post left reverse shoulder replacement. There is good alignment. Reading Location: [place] [address] 03/20/25 104 <Electronically signed by Sixto Andrade MD> Cosigner Signature (if applicable): CC: Dr. 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 Kamar Grimes MD Status:ADM IN Location: ICU ICU02-1 Assessment & Plan Assessment/Plan (1) Shock: PLAN: Plan RECOMMENDATIONS: 1. Proceed with a trial of extubation this morning. Once extubated, wean supplemental oxygen to maintain saturations at or above 90%. 2. Continue to wean vasopressor support as tolerated. 3. Additional fluid resuscitation as ordered. 4. Continue empiric antimicrobial therapy. 5. Continue stress dose steroids. Will begin to wean once the vasopressor support has been discontinued. 6. Continue appropriate DVT prophylaxis. 7. Bedside swallow evaluation with dietary advancement as tolerated. 8. PT/OT to work with the patient. IMPRESSIONS: 1. Undifferentiated shock Unclear precipitating etiology. Septic and hypovolemic etiologies seem to be the most probable. However, no definitive source of infection has yet to be identified. Cultures have been negative to date. With supportive care, including IV fluid resuscitation and vasopressor support, the patient has improved clinically. The patient has been nearly weaned off of Levophed. Will continue to wean as tolerated to maintain mean arterial pressure at or above 65 mmHg. In the interim, given the hyperdynamic LV noted on echo, will administer additional IV fluid resuscitation. Will plan to continue stress dose steroids until the patient has been weaned off of Levophed completely. In light of the patient's history of prosthetic joint infection, CT imaging of the upper extremity is pending. Echocardiogram revealed intact, normal systolic function without any significant valvular abnormalities. 2. Acute respiratory failure with hypoxemia and hypercapnia Potentially related to increased metabolic demand of #1. No discernible underlying pulmonary pathology was identified on imaging. Again, with supportive care, including invasive mechanical ventilatory support, the patient has improved clinically. Her FiO2 requirements are minimal on the ventilator. She is alert and able to follow commands appropriately. The patient ultimately passed a spontaneous breathing trial and will be extubated this morning. Once extubated, wean supplemental oxygen to maintain saturations at or above 90%. Encourage incentive spirometer use and mobilize patient as tolerated. 3. Acute kidney injury Most likely prerenal in etiology in the setting of #1. Creatinine has improved with volume expansion and stabilization of hemodynamics. Continue to monitor urine output. No current indication for renal replacement therapy. 4. Encephalopathy Resolved. Most likely toxic/metabolic in nature in the setting of #1. CT head was unremarkable. TSH is within normal limits. Continue current supportive care. 5. History of prosthetic joint infection/history of AAA/restless leg syndrome/depression/anxiety/obesity Complicates care, management, recovery and prognosis. Continue supportive care as noted above. PT/OT to work with the patient. Bedside swallow evaluation with dietary advancement as tolerated. TIME: 40 minutes of critical care time, independent of procedures, was spent addressing the patient's undifferentiated shock, acute respiratory failure, acute kidney injury, encephalopathy, review of all data and collaboration with the care team. Subjective Subjective The patient was seen and examined at the bedside this morning. Events from the last 24 hours have been reviewed. The patient is currently afebrile and hemodynamically stable on low-dose Levophed. She has done well overnight. Ventilator requirements are minimal this morning. The patient did well with a spontaneous awakening trial. She is alert and able to follow commands appropriately. Accordingly, the patient completed a spontaneous breathing trial, which she completed without complication. Accordingly, the patient was extubated. White blood cell count this morning was noted to be 13,000. Chemistry profile was notable for a creatinine of 1.4, which has improved from yesterday. Objective Data Objective Data The patient's most recent lab work, culture data and imaging studies have all been personally reviewed. Gastric occult blood was positive. Infectious workupto date has been largely unrevealing. Vital Signs: Vital Signs Temp Pulse Resp BP Pulse Ox O2 Del Method O2 Flow Rate 99 F 92 14 143/75 H 95 Mechanical Ventilator 4 03/20/25 07:00 03/20/25 07:00 03/20/25 07:00 03/20/25 07:15 03/20/25 07:00 03/20/25 07:00 03/18/25 17:48 FiO2 25 03/20/25 07:00 Oxygen Flow Rate (L/min) 4 Oxygen Delivery Method Mechanical Ventilator Weight: 251 lb 5.231 oz Body Mass Index (BMI) 39.3 Intake & Output: Intake and Output for Last 24 Hours 03/18/25 03/19/25 03/20/25 23:59 23:59 23:59 Intake Total 1713.37 / 1720.75 4211.40 / 4285.70 662.26 / 662.26 Output Total 1100 / 1100 2975 / 2975 1675 / 1675 Balance 613.37 / 620.75 1236.40 / 1310.70 -1012.74 / -1012.74 Lab / Micro Data Attestation: I reviewed the patient's lab results. 03/20/25 04:24 03/20/25 04:24 Labs: Laboratory Results - last 24 hr 03/18/25 03:50: Urine Osmolality 437 03/18/25 03:58: Total Creatine Kinase 137, Triglycerides 90 03/19/25 08:15: Lactic Acid 1.3 03/20/25 04:24: WBC 13.3 H, RBC 5.03, Hgb 14.9, Hct 44.0, MCV 87.5, MCH 29.6, MCHC 33.9, RDW Std Deviation 46.7 H, RDW Coeff of Terry 14.9 H, Plt Count 221, MPV10.3, Immature Gran % (Auto) 0.700, Neut % (Auto) 90.9 H, Lymph % (Auto) 4.1 L, Lyon % (Auto) 4.1, Eos % (Auto) 0.0, Baso % (Auto) 0.2, Absolute Neuts (auto) 12.1 H, Absolute Lymphs (auto) 0.55 L, Nucleated RBC % 0, Sodium 139, Potassium 3.6, Chloride 95 L, Carbon Dioxide 31.0, Anion Gap 13, BUN 38 H, Creatinine 1.44H, Estim Creat Clear Calc 43.32 L, Est GFR (MDRD) Non-Af 38 L, BUN/Creatinine Ratio 26.4 H, Glucose 129 H, Calcium 9.0 Micro: Microbiology 03/18/25 19:14 Sputum, Induced/Lukens Gram Stain - Final 03/19/25 08:25 Gastric Fluid/Contents Gastric Occult Blood - Final Occult Blood Positive 03/18/25 20:15 Mucosa - Nasopharyngeal Respiratory Panel (PCR) - Final ABG Data ABG results: ABG 03/19/25 08:13 Specimen Type ART Sample Site Art Line pH 7.46 H Bicarbonate Actual 34.3 H Total CO2 36 Base Excess 10 H O2 Saturation 93 L O2 % 35.0 ABG pCO2 48.5 H ABG pO2 63 L Respiration Rate 14 O2 Delivery Device Adult Vent Vent Mode AC Tidal Volume 400.0 POC PEEP 5 Radiography Diagnostic Testing: Radiology Impression Echocardiogram 03/19/25 01:33 Interpretation Summary Normal LV size. Left ventricular systolic function is hyperdynamic. The left ventricular ejection fraction is 75 %. Small (<1.0 cm) pericardial effusion. There are no echocardiographic indications of cardiac tamponade. Moderate concentric left ventricular hypertrophy. Ordering Physician: Wally Waddell Performed By: Xavier Castano RCS Physical Exam Const Constitutional Narrative: Intubated and mechanically ventilated. Tolerating spontaneous mode of mechanical ventilation. HEENT normocephalic and head/scalp atraumatic Mouth: endotracheal tube in place and OG tube in place Eyes PERRL, EOMs intact bilaterally and conjunctivae normal Neck supple General: trachea midline Chest inspection of chest normal Resp normal respiratory effort Auscultation: Negative for rales, rhonchi or wheezes Cardio regular rate and regular rhythm GI normal to inspection, nondistended, normoactive bowel sounds Extremity no clubbing, cyanosis or edema Skin no rashes or lesions noted Neuro Neuro Narrative: Currently off of all sedation. Alert and able to follow commands appropriately. Psych cooperative Charges/Coding Procedures Hospitalists Procedures: [id number] Critical Care 1st Hr 03/20/25922 <Electronically signed by Antwan Gardner DO> Cosigner Signature (if applicable): CC: ~ Signed [facility] Work Phone: [phone] Radiology Diagnostic study [facility]09-18-2025 Consult note Author Saul Kearney [facility] Note Date/Time March 20, 2025 6:59am [facility] Medical Records Department [address] [place] [address] Consultation - Cardiology 03/20/25 0652 MR#: [id number] Acct: [id number] Name: OSCAR WOO Rep #:[id number] : 1950 75 From: Saul Kearney MD PCP: Dr. Kamar Grimes MD Status:ADM IN Location: ICU ICU02-1 Assessment & Plan Assessment/Plan (1) Acute hypotension: PLAN: I suspect the etiology of the above is likely on the basis of dehydration and sepsis. She has been previously on antihypertensive medication her BUN and creatinine were elevated she has a hyperdynamic ventricle. Mild commendation isto make her appropriately fluid replete and slowly wean off on her pressor agents. I do not think that there is any acute cardiac event or vascular event which is contributing to the above. She is already doing better and I will continue to follow with you peripherally. Thank you for allowing me to participate in the care of your patient. Please don't hesitate to call if any issues arise. (2) Essential (primary) hypertension: PLAN: She has a history of hypertension but at the moment her antihypertensive medications are on hold. (3) Saccular aneurysm: PLAN: She has an infrarenal saccular aneurysm which will be worked up and patient to be appropriately dispensed. Thank you for allowing me to participate in the care of your patient. Please don't hesitate to call if any issues arise. HPI Consult Data Date of Consult: 03/20/25 HPI Narrative HPI Narrative: OSCAR WOO, is a 75 F who presents with a history of restless leg syndrome, hypertension, depression and came into the hospital due to altered mental status. The patient was initially diagnosed with low blood pressure and possible sepsis with an elevated BUN and creatinine. Patient was noted to have an infrarenal saccular aneurysm and there was a concern that this may have ruptured and so a CT a was done which demonstrated an intact infrarenal saccularaneurysm measuring 5.5 cm. She was admitted to the intensive care unit started on pressor agents and yesterday we were called because she was noted to be hypotensive at some point. She was given intravenous fluids and pressor agents. An echocardiogram done demonstrated preserved ejection fraction. At the time Isaw her her blood pressure was back up to normal. EKG demonstrated sinus rhythmand sinus tachycardia with no acute changes. [facility] Medical History Infection and inflammatory reaction due [...] type: does not use ROS Constitutional Constitutional: Denies fever(s) or weight loss Eyes Eyes: Reports systems reviewed and no addt'l complaints, except as documented ENT HEENT: Reports systems reviewed and no addt'l complaints, except as documented Cardiovascular Cardiovascular: Denies chest pain at rest, chest pain with activity, dyspnea at rest, dyspnea on exertion, edema, palpitations or paroxysmal nocturnal dyspnea Respiratory/Chest Respiratory/Chest: Denies dyspnea on exertion, productive cough, shortness of breath at rest or shortness of breath with exertion Gastrointestinal Gastrointestinal: Denies change in bowel habits, nausea, vomiting or weight changes Genitourinary Genitourinary: Denies difficulty urinating Musculoskeletal Musculoskeletal: Denies joint stiffness or muscle weakness Integumentary Integumentary: Denies lesions Neurologic Neurologic: Denies dizziness or syncope Psychiatric Psychiatric: Denies anxiety Endocrine Endocrinology: Denies excessive sweating or fatigue Hematologic/Lymphatic Hematologic/Lymphatic: Denies anemia Allergic/Immunologic Allergic/Immunologic: Denies seasonal rhinorrhea Physical Exam Const alert, oriented x3 and no apparent distress General Appearance: cooperative HEENT hearing grossly normal bilaterally Head and Scalp: atraumatic Eyes EOMs intact bilaterally Neck General: normal visual inspection Chest inspection of chest normal and palpation of chest normal Resp normal respiratory effort Auscultation: clear to auscultation bilaterally Cardio regular rate, regular rhythm, S1 normal heart sound and S2 normal heart sound Jugular Venous Distention: JVD GI normal to inspection, nondistended, normoactive bowel sounds Extremity normal capillary refill and no pedal edema Peripheral Pulses: Yes pulses 2+ throughout and femoral pulses present Skin no rashes or lesions noted Neuro oriented x3 and CN's II-XII intact bilaterally Psych Appearance: grossly normal and appropriate Objective Data Vital Signs: Vital Signs Temp Pulse Resp BP Pulse Ox O2 Del Method O2 Flow Rate 99.1 F 99 14 124/78 H 93 Mechanical Ventilator 45 03/20/25 06:00 03/20/25 06:49 03/20/25 06:49 03/20/25 06:00 03/20/25 06:49 03/20/25 06:49 03/20/25 06:00 FiO2 25 03/20/25 06:49 Oxygen Flow Rate (L/min) 45 Oxygen Delivery Method Mechanical Ventilator Weight: 251 lb 5.231 oz Body Mass Index (BMI) 39.3 Intake & Output: Intake and Output for Last 24 Hours 03/18/25 03/19/25 03/20/25 23:59 23:59 23:59 Intake Total 1713.37 / 1720.75 4211.40 / 4285.70 601.09 / 601.09 Output Total 1100 / 1100 2975 / 2975 1675 / 1675 Balance 613.37 / 620.75 1236.40 / 1310.70 -1073.91 / -1073.91 Lab / Micro Data 03/20/25 04:24 03/20/25 04:24 Labs: Laboratory Results - last 24 hr 03/18/25 03:50: Urine Osmolality 437 03/18/25 03:58: Total Creatine Kinase 137, Triglycerides 90 03/19/25 08:15: Lactic Acid 1.3 03/20/25 04:24: WBC 13.3 H, RBC 5.03, Hgb 14.9, Hct 44.0, MCV 87.5, MCH 29.6, MCHC 33.9, RDW Std Deviation 46.7 H, RDW Coeff of Terry 14.9 H, Plt Count 221, MPV10.3, Immature Gran % (Auto) 0.700, Neut % (Auto) 90.9 H, Lymph % (Auto) 4.1 L, Lyon % (Auto) 4.1, Eos % (Auto) 0.0, Baso % (Auto) 0.2, Absolute Neuts (auto) 12.1 H, Absolute Lymphs (auto) 0.55 L, Nucleated RBC % 0, Sodium 139, Potassium 3.6, Chloride 95 L, Carbon Dioxide 31.0, Anion Gap 13, BUN 38 H, Creatinine 1.44H, Estim Creat Clear Calc 43.32 L, Est GFR (MDRD) Non-Af 38 L, BUN/Creatinine Ratio 26.4 H, Glucose 129 H, Calcium 9.0 Micro: Microbiology 03/18/25 19:14 Sputum, Induced/Lukens Gram Stain - Final 03/19/25 08:25 Gastric Fluid/Contents Gastric Occult Blood - Final Occult Blood Positive ABG Data ABG results: ABG 03/19/25 08:13 Specimen Type ART Sample Site Art Line pH 7.46 H Bicarbonate Actual 34.3 H Total CO2 36 Base Excess 10 H O2 Saturation 93 L O2 % 35.0 ABG pCO2 48.5 H ABG pO2 63 L Respiration Rate 14 O2 Delivery Device Adult Vent Vent Mode AC Tidal Volume 400.0 POC PEEP 5 Cardiology Labs/Tests 03/18/25 03:58: Triglycerides 90 03/19/25 08:13: pH 7.46 H, Bicarbonate Actual 34.3 H, Base Excess 10 H, O2 Saturation 93 L, ABG pCO2 48.5 H, ABG pO2 63 L 03/19/25 08:15: Lactic Acid 1.3 03/20/25 04:24: WBC 13.3 H, RBC 5.03, Hgb 14.9, Hct 44.0, MCV 87.5, MCH 29.6, MCHC 33.9, Plt Count 221, MPV 10.3, Immature Gran % (Auto) 0.700, Neut % (Auto) 90.9 H, Lymph % (Auto) 4.1 L, Lyon % (Auto) 4.1, Eos % (Auto) 0.0, Baso % (Auto)0.2, Absolute Neuts (auto) 12.1 H, Nucleated RBC % 0, Sodium 139, Potassium 3.6,Chloride 95 L, Carbon Dioxide 31.0, Anion Gap 13, BUN 38 H, Creatinine 1.44 H, Est GFR (MDRD) Non-Af 38 L, BUN/Creatinine Ratio 26.4 H, Glucose 129 H, Calcium 9.0 Rhythm: EKG: ECHO: Stress Test: Cardiac Cath: PCI: CT Surgery: Holter monitor: EPS: PPM: CXR: Chest CT Scan: Radiography Diagnostic Testing: Radiology Impression Echocardiogram 03/19/25 01:33 Interpretation Summary Normal LV size. Left ventricular systolic function is hyperdynamic. The left ventricular ejection fraction is 75 %. Small (<1.0 cm) pericardial effusion. There are no echocardiographic indications of cardiac tamponade. Moderate concentric left ventricular hypertrophy. Ordering Physician: Wally Waddell Performed By: Xavier Castano RCS E Risk Score for UA/STEMI Assesmment (YES = 1) Risk Stratification Applicable: No 03/20/25 0659 <Electronically signed by Saul Kearney MD> Cosigner Signature (if applicable): CC: Dr. Kamar Grimes MD~ Signed [facility] Work Phone: [phone] Progress note Author Claire Mayorga [facility] Note Date/Time March 19, 2025 7:34pm [facility] Medical Records Department [address] [place] [address] Progress Note - Hospitalist 03/19/251932 MR#: [id number] Acct: [id number] Name: OSCAR WOO Rep #:[id number] : 1950 75 From: Claire Mayorga MD PCP: Dr. Kamar Grimes MD Status:ADM IN Location: ICU ICU02-1 Hospitalist Note ICU physician recommended ID consultation and possible UE CT. Will place consultfor ID and await their further recommendations. 03/19/251933 <Electronically signed by Claire Mayorga MD> Cosigner Signature (if applicable): CC: ~ Signed [facility] Work Phone: [phone]) [phone] Progress note Author Otilia Gosscristofer [facility] Note Date/Time March 19, 2025 3:59pm [facility] Medical Records Department [address] [place] [address] Progress Note 03/19/25 1411 MR#: [id number] Acct: [id number] Name: OSCAR WOO Rep #:[id number] : 1950 75 From: Otilia Hernandez MD PCP: Dr. Kamar Grimes MD Status:ADM IN Location: ICU ICU02-1 Subjective Subjective Patient seen and examined. She is intubated on the vent. However RASS score is0 and she is able to open eyes and nod or shake head in response to questions. She denied being in pain. Unable to comprehensive review of systems due to her being intubated. She remains febrile with temperature being 100.5 today. WBCs 14.9. Objective Data Objective Data Vital Signs: Vital Signs Temp Pulse Resp BP Pulse Ox O2 Del Method O2 Flow Rate 100.9 F H 108 H 13 117/81 H 96 Mechanical Ventilator 4 03/19/25 13:00 03/19/25 13:00 03/19/25 13:00 03/19/25 13:17 03/19/25 13:00 03/19/25 13:00 03/18/25 17:48 FiO2 35 03/19/25 08:00 Oxygen Flow Rate (L/min) 4 Oxygen Delivery Method Mechanical Ventilator Weight: 246 lb 0.574 oz Body Mass Index (BMI) 38.6 Intake & Output: Intake and Output for Last 24 Hours 03/17/25 03/18/25 03/19/25 23:59 23:59 23:59 Intake Total 1713.37 / 1720.75 3189.68 / 3189.68 Output Total 1100 / 1100 2024 Balance 613.37 / 620.75 1164.68 / 1164.68 Lab / Micro Data 03/19/25 03:18 03/19/25 03:58 Labs: Laboratory Results - last 24 hr 03/18/25 03:50: Urine Osmolality 437, Ur Random Sodium 28, Urine Creatinine 83.80, Urine Potassium 31.9, Urine Chloride < 20, Urine Urea Nitrogen 390 03/18/25 03:58: Total Creatine Kinase 137, Triglycerides 90 03/18/25 15:15: WBC 9.9, RBC 5.40, Hgb 15.8 H, Hct 50.5 H, MCV 93.5, MCH 29.3, MCHC 31.3 L, RDW Std Deviation 49.9 H, RDW Coeff of Terry 14.6, Plt Count 218, MPV 10.4, Immature Gran % (Auto) 0.900, Neut % (Auto) 84.3 H, Lymph % (Auto) 7.4 L, Lyon % (Auto) 7.0, Eos % (Auto) 0.0, Baso % (Auto) 0.4, Absolute Neuts (auto) 8.4 H, Absolute Lymphs (auto) 0.73 L, Nucleated RBC % 0, ESR 37 H, PT 12.4, INR 0.9, APTT 27.8, Sodium 131 L, Potassium 4.4, Chloride 84 L, Carbon Dioxide 32.8 H, Anion Gap 14, BUN 51 H, Creatinine 2.22 H, Estim Creat Clear Calc 27.85 L, Est GFR (MDRD) Non-Af 22 L, BUN/Creatinine Ratio 22.8 H, Glucose 115 H, Lactic Acid 1.1, Calcium 9.7, Total Bilirubin 0.35, AST 86 H, ALT 61 H, Alkaline Phosphatase 162 H, C- React Prot Ext Range 5.32 H, Total Protein 7.7, Albumin 4.1, Globulin 3.6, Albumin/Globulin Ratio 1.1, Procalcitonin 0.10, TSH 1.650 03/18/25 15:24: Urine Color Yellow, Urine Clarity Clear, Urine pH 6.0, Ur Specific [place] 1.015, Urine Protein 30 H, Urine Glucose (UA) Normal, Urine Ketones Negative, Urine Occult Blood Negative, Urine Nitrite Negative, Urine Bilirubin Negative, Urine Urobilinogen Normal, Ur Leukocyte Esterase Negative, Urine RBC 0-5 SEEN, Urine WBC 0-5 SEEN, Ur Squamous Epith Cells 0-5 SEEN, Ur Transition Epith Cell 0-5 SEEN, Urine Bacteria 1+, Urine Mucus 0 SEEN 03/18/25 21:46: NT pro BNP II 2155 H 03/19/25 03:18: WBC 14.9 H, RBC 5.28, Hgb 15.7 H, Hct 46.5, MCV 88.1 D, MCH 29.7, MCHC 33.8 D, RDW Std Deviation 45.3 H, RDW Coeff of Terry 14.4, Plt Count 244, MPV 10.3, Immature Gran % (Auto) 0.500, Neut % (Auto) 83.0 H, Lymph % (Auto) 11.9 L, Lyon % (Auto) 4.2, Eos % (Auto) 0.1, Baso % (Auto) 0.3, Absolute Neuts (auto) 12.4 H, Absolute Lymphs (auto) 1.78 03/19/25 03:58: Sodium 134, Potassium 3.5, Chloride 88 L, Carbon Dioxide 30.8, Anion Gap 16 H, BUN 54 H, Creatinine 2.06 H, Estim Creat Clear Calc 29.42 L, Est GFR (MDRD) Non-Af 25 L, BUN/Creatinine Ratio 26.2 H, Glucose 88, Calcium 8.7, Total Bilirubin 0.56, AST 94 H, ALT 64 H, Alkaline Phosphatase 149 H, Total Protein 6.6, Albumin 3.6, Globulin 3.0, Albumin/Globulin Ratio 1.2 03/19/25 08:15: Lactic Acid 1.3 Micro: Microbiology 03/18/25 19:14 Sputum, Induced/Lukens Gram Stain - Final 03/19/25 08:25 Gastric Fluid/Contents Gastric Occult Blood - Final Occult Blood Positive 03/18/25 20:15 Mucosa - Nasopharyngeal Respiratory Panel (PCR) - Final ABG Data ABG results: ABG 03/18/25 03/19/25 18:22 08:13 Specimen Type ART ART Sample Site L Brach Art Line pH 7.32 L 7.46 H Bicarbonate Actual 30.3 H 34.3 H Total CO2 32 36 Base Excess 4 H 10 H O2 Saturation 97 93 L O2 % 40.0 35.0 ABG pCO2 59.2 H 48.5 H ABG pO2 101 H 63 L Respiration Rate 14 14 O2 Delivery Device Adult Vent Adult Vent Vent Mode AC/VC AC Tidal Volume 400.0 400.0 POC PEEP 5 5 Radiography Diagnostic Testing: Radiology Impression Brain CT 03/18/25 15:30 IMPRESSION: No acute intracranial process. Reading Location: [id number] Chest X-Ray 03/18/25 15:35 IMPRESSION: Bilateral low lung volumes. No acute cardiopulmonary abnormality. Reading Location: [id number] Chest X-Ray 03/18/25 17:44 IMPRESSION: 1. Endotracheal tube tip 3.1 cm above the abigail. 2. Enteric tube appropriately positioned terminating in the upper midabdomen. 3. Cardiomegaly, with increased vascular markings and possible interstitial edema. Reading Location: [facility] KUB X-Ray 03/18/25 18:00 IMPRESSION: Enteric tube terminates appropriately within the stomach. Persistent IV contrast opacifying the kidneys suggesting medical renal disease with delayed excretion. Reading Location: [id number] Abdomen/Pelvis CTA 03/18/25 18:50 IMPRESSION: 1. No acute or active inflammatory intra-abdominal pathology. 2. Stable saccular infrarenal abdominal aortic aneurysm measuring up to 4.4 cm. 3. Indeterminate 15 mm right adrenal gland nodule, probably adenoma. Suggest follow-up dedicated adrenal CT or MRI in 12 months to assess stability. Reading Location: [facility] Chest X-Ray 03/18/25 19:02 IMPRESSION: 1. New right subclavian approach central venous catheter, tip at the lower SVC. 2. Stable positioning of the endotracheal and enteric tubes. 3. Unchanged lung aeration. Stable cardiomegaly. Reading Location: [id number] Echocardiogram 03/19/25 01:33 Interpretation Summary Normal LV size. Left ventricular systolic function is hyperdynamic. The left ventricular ejection fraction is 75 %. Small (<1.0 cm) pericardial effusion. There are no echocardiographic indications of cardiac tamponade. Moderate concentric left ventricular hypertrophy. Ordering Physician: Wally Waddell Performed By: Xavier Castano RCS Shoulder X-Ray 03/19/25 04:00 IMPRESSION: Lucencies are suspected in the soft tissues of the proximal left arm. Findings can be better evaluated by CT exam if clinically warranted to exclude the presence of soft tissue gas at this level. The exam is significantly limited secondary to patient's body habitus and position. Reading Location: [place] [address] Physical Exam Const Constitutional Narrative: Intubated, sedated, RASS score is 0. Able to open eyes and nod or shake her head in response to questions. HEENT normocephalic and head/scalp atraumatic Mouth: dry mucous membranes Eyes EOMs intact bilaterally Neck supple Lymph Lymphatic: no lymphedema noted Resp Resp Narrative: Moderately diminished breath sounds bibasilarly. Intubated and sedated. Cardio regular rate, regular rhythm, S1 normal heart sound, S2 normal heart sound and no murmurs GI normal to inspection, nondistended, normoactive bowel sounds, soft to palpation and non-tender GI Narrative: Obese abdomen Extremity no clubbing, cyanosis or edema and no calf tenderness General Extremity: no tenderness to palpation of joints or extremities Skin General Skin Exam: no breakdown Neuro Neuro Narrative: Intubated, sedated. RASS score 0 Motor Exam: general weakness Assessment & Plan Assessment/Plan (1) Acute respiratory failure with hypoxia and hypercapnia: (2) Shock: PLAN: Plan #Undifferentiated shock * Etiology is not clear. She was admitted with altered mental status and hypotension as well as acute renal failure. * She was unresponsive to fluids so central line was placed and she was started on pressors. She was also in respiratory distress so was intubated * CT chest abdomen and pelvis showed only infrarenal saccular aortic aneurysm measuring 3.8 x 4.5 x 5.5 cm * CTA also did not show any evidence of rupture of the saccular aortic aneurysm * Blood and urine cultures pending. Critical care on board. On broad-spectrum antibiotics. * Currently on Levophed, vasopressin and stress dose steroids. * Limited echo done today showed normal ventricular size with moderate concentric left ventricular hypertrophy and hyperdynamic left ventricular systolic function with left ventricular EF of 75% and no regional wall motion abnormality seen * #Acute hypoxic and hypercapnic respiratory failure * Remains intubated and sedated. Critical care on board. #Acute renal failure: Creatinine is 2.06. Was 2.22 on admission. Day catheter in place. Monitor intake and output. Fluid restriction to 1500 cc daily. #History of left shoulder prosthetic infection: * On long-term antibiotics for this. Continue the antibiotics * Right shoulder x-ray showed lucencies in the soft tissues of the proximal left arm and findings can be better evaluated by CT exam if clinically warranted with exam significantly limited by patient's body habitus and positioning #Heart failure preserved EF: Has EF of 70% and stage I diastolic dysfunction per2D echo done on 03/04/2025. Limited echo ordered. #Infrarenal aneurysm * CTA of the abdomen showed the infrarenal saccular aortic aneurysm measuring 3.8 x 4.5 x 5.5 cm as above. * Follow-up with PCP for further workup and referral on outpatient basis as needed * #Restless leg syndrome: Oral meds on hold currently. #Hypertension: BP meds on hold due to hypotension and shock #Depression and anxiety: Meds also on hold as she is intubated DVT prophylaxis: SCDs, Lovenox Charges/Coding Visit Charges Inpatient E&M: 11888 [facility] Hosp 03/19/25 3922 <Electronically signed by Otilia Hernandez MD> Otilia Hernandez MD Cosigner Signature (if applicable): CC: ~ Signed [facility] Work Phone: [phone] 472-803209-17-2025 Discharge summary Author Deion Levy [facility] Note Date/Time March 19, 2025 3:24pm [facility] Medical Records Department [address] [facility] [place] [address] Emergency Department Summary 03/18/25 MR#: [id number] Acct: [id number] Name: OSCAR WOO Rep #:[id number] : 1950 75 From: Deion Levy MD PCP: Dr. Kamar Grimes MD Status:ADM IN Location: ICU ICU02-1 HPI History of Present Illness Chief Complaint: Alt LOC Detail of Chief Complaint: Altered mental status per squad. Nurses concern for possible stroke. Informant: patient and EMS Onset/Context/Timing Onset: - (Last known at baseline Monday, March 17 at 1600) Context: - (Unknown) Timing: Continuous (Presumed) Quality: Speaks slowly and is not as active Location: Presents from home Current Severity: Mild Maximum Severity: Moderate Worsened by: Unknown/nothing Relieved by: Unknown/nothing Associated Symptoms Associated Symptoms: No urine output since yesterday Narrative Narrative: Patient is a 75-year-old woman. She arrived by [employer]. She was met at the ambulance entrance because she reportedly had slurred speech. She was last known well at 160o on March 17. Family called [facility]. She has a bruise noted lateral left periorbital region. She apparently fell outof bed. Nurse confirmed that she fell out of bed. She denies headache. She denies double vision, blurred vision loss of vision. She denies ringing or earsor decreased hearing. She denies slurred speech. She states her speech is slow. She denies cardiac or respiratory symptoms. She denies GI symptoms. Prior similar symptoms: No Recent Illness/Hospitalization: No PFSH PFSH Medical History Infection and inflammatory reaction due [...] use type: does not use ROS ROS ED Constitutional Constitutional ED: Denies chills, fever(s), subjective or sweats Eyes Eyes: Denies blurry vision or change in vision ENT ENT ED: Denies ear pain, rhinorrhea or sore throat Cardiovascular Cardiovascular: Denies chest pain, orthopnea, palpitations, paroxysmal nocturnaldyspnea or racing heartbeat Respiratory/Chest Respiratory/Chest: Denies cough, dyspnea, dyspnea on exertion, orthopnea or paroxysmal nocturnal dyspnea Gastrointestinal Gastrointestinal: Denies abdominal pain, diarrhea, nausea or vomiting Genitourinary Genitourinary ED: Reports other Details: No urine output since yesterday ; Denies dysuria, hematuria or urinary frequency Musculoskeletal Musculoskeletal: Denies arthralgias or myalgias Integumentary Denies Abrasions or rash Neurologic Neurologic: Denies headache(s), paresthesias or weakness Psychiatric Psychiatric: Denies anxiety Hematologic/Lymphatic Hematologic/Lymphatic: Reports systems reviewed and no addt'l complaints, exceptas documented EXAM Physical Exam Narrative Exam Narrative: Family called because of her slow speech and not at her baseline. Const Vital Signs: 03/18/25 15:47 03/18/25 16:00 03/18/25 17:00 Temperature 90.6 F L Temperature Source Core Pulse Rate 62 89 63 Respiratory Rate 19 H 17 Blood Pressure 103/79 92/71 102/63 Blood Pressure Mean 87 78 76 Pulse Ox 96 100 Oxygen Delivery Method Nasal Cannula Nasal Cannula Oxygen Flow Rate (L/min) 4 4 EtCo2 - Document during CPR and with ROSC 03/18/25 17:30 03/18/25 17:48 03/18/25 17:51 Temperature Temperature Source Pulse Rate 58 L 53 L Respiratory Rate 11 L Blood Pressure 89/64 L Blood Pressure Mean 72 Pulse Ox 88 90 Oxygen Delivery Method Nasal Cannula Oxygen Flow Rate (L/min) 4 EtCo2 - Document during CPR and with ROSC 79 03/18/25 17:52 03/18/25 18:00 03/18/25 18:00 Temperature Temperature Source Pulse Rate 60 61 Respiratory Rate 16 14 Blood Pressure 88/62 L 54/42 L Blood Pressure Mean 70 46 Pulse Ox 99 99 Oxygen Delivery Method Mechanical Ventilator Oxygen Flow Rate (L/min) EtCo2 - Document during CPR and with ROSC 03/18/25 18:34 03/18/25 19:18 Temperature Temperature Source Pulse Rate Respiratory Rate Blood Pressure 73/49 L 240/120 H Blood Pressure Mean 57 160 Pulse Ox Oxygen Delivery Method Oxygen Flow Rate (L/min) EtCo2 - Document during CPR and with ROSC Positive well nourished and well developed Constitutional Narrative: BMI is 38.7. General Appearance ED: well developed and NAD; Negative for cyanotic or diaphoretic HEENT Reports dry mucous membranes HEENT Narrative: There is a bruise and abraded area lateral left brow and inferior to the left brow. There is no CSF otorrhea or rhinorrhea. No hemotympanum. Mouth ED: Yes dry mucous membranes Mouth: dry mucous membranes Eyes PERRL and EOMs intact bilaterally Eyes Narrative: There is no nystagmus. Patient has pinpoint pupils. General Eye ED: Negative for pale conjunctiva or scleral icterus Neck no lymphadenopathy, supple and no JVD Chest Wall inspection of chest normal and palpation of chest normal Resp normal respiratory effort and clear to auscultation bilaterally Cardio regular rate, regular rhythm, S1 normal heart sound, S2 normal heart sound and no murmurs GI normal to inspection, nondistended, normoactive bowel sounds, non-tender, non-distended and no masses Auscultation: normoactive bowel sounds Palpation: soft Back/Spine no CVA tenderness Extremity normal to inspection Neuro oriented x3, CN's II-XII intact bilaterally and no sensory deficits noted Neuro Narrative: Slow psychomotor skills. Sensorium / Orientation: alert Motor Exam: strength 5/5 throughout Psych mental status grossly normal Skin no rashes or lesions noted, no wounds and skin turgor normal Sepsis Attestation Sepsis Alert: Yes Sepsis Attestation: Sepsis Ruled Out (Uncertain etiology of patient's hypotension and altered mental status. There is no obvious source of infection and with no elevated white count I am not certain that this represents sepsis.) MDM MDM MDM Narrative Medical decision making narrative: Patient arrived by squad because of altered mental status. She has not urinatedsince yesterday. Nursing staff is concerned this may represent stroke because of slurred speech. Patient's speech is not slurred at slow. With evidence of head trauma need to rule out intracranial bleed i.e. subdural hematoma, traumatic subarachnoid hemorrhage or intraparenchymal contusion. Doubt epiduralhematoma since this happened hours ago. Will also obtain CBC, competence of metabolic panel and urine to assess for infectious or metabolic cause if the CT is negative. I was informed by nursing staff that unable to get an axillary oral temp. Straight cath was changed to temperature Day for accurate temperature. History & Record Review Additional record(s) reviewed:: Prior inpatient record (Admitted August of this year for infectious and inflammatory reaction due to internal joint prosthesis. Patient was seen by infectious disease and recommended 6 weeks of vancomycin. Patient was hypoxic as well. That improved.), Prior outpatient record (H&P by Dr. Sanches was noted when she transition from the hospital to the TCU.) and Prior labs Lab Data Attestation: I reviewed the patient's lab results. Lab results narrative: CBC is remarkable for elevated H&H. Comprehensive metabolic panel was elevated BUN/creatinine of 52 and 2.12. Her prior creatinine was normal. Creatinine wasnormal on March 10, 2025. She has mild hyponatremia and hypochloremia since 10 March as well. AST, ALT and alkaline phosphatase are elevated. These have been elevated in the past. Urinalysis reveals no pyuria but she does have bacteriuria. Labs: Laboratory Results - last 24 hr 03/18/25 03/18/25 03/18/25 03:50 03:58 15:15 WBC 9.9 RBC 5.40 Hgb 15.8 H Hct 50.5 H MCV 93.5 MCH 29.3 MCHC 31.3 L RDW Std Deviation 49.9 H RDW Coeff of Terry 14.6 Plt Count 218 MPV 10.4 Immature Gran % (Auto) 0.900 Neut % (Auto) 84.3 H Lymph % (Auto) 7.4 L Lyon % (Auto) 7.0 Eos % (Auto) 0.0 Baso % (Auto) 0.4 Absolute Neuts (auto) 8.4 H Absolute Lymphs (auto) 0.73 L Nucleated RBC % 0 ESR 37 H PT 12.4 INR 0.9 APTT 27.8 Sodium 131 L Potassium 4.4 Chloride 84 L Carbon Dioxide 32.8 H Anion Gap 14 BUN 51 H Creatinine 2.22 H Estim Creat Clear Calc 27.85 L Est GFR (MDRD) Non-Af 22 L BUN/Creatinine Ratio 22.8 H Glucose 115 H Lactic Acid 1.1 Calcium 9.7 Total Bilirubin 0.35 AST 86 H ALT 61 H Alkaline Phosphatase 162 H Total Creatine Kinase 137 C-React Prot Ext Range 5.32 H Total Protein 7.7 Albumin 4.1 Globulin 3.6 Albumin/Globulin Ratio 1.1 Triglycerides 90 Procalcitonin 0.10 TSH 1.650 Urine Color Urine Clarity Urine pH Ur Specific [place] Urine Protein Urine Glucose (UA) Urine Ketones Urine Occult Blood Urine Nitrite Urine Bilirubin Urine Urobilinogen Ur Leukocyte Esterase Urine RBC Urine WBC Ur Squamous Epith Cells Ur Transition Epith Cell Urine Bacteria Urine Mucus Urine Osmolality 437 Ur Random Sodium 28 Urine Creatinine 83.80 Urine Potassium 31.9 Urine Chloride < 20 Urine Urea Nitrogen 390 03/18/25 15:24 WBC RBC Hgb Hct MCV MCH MCHC RDW Std Deviation RDW Coeff of Terry Plt Count MPV Immature Gran % (Auto) Neut % (Auto) Lymph % (Auto) Lyon % (Auto) Eos % (Auto) Baso % (Auto) Absolute Neuts (auto) Absolute Lymphs (auto) Nucleated RBC % ESR PT INR APTT Sodium Potassium Chloride Carbon Dioxide Anion Gap BUN Creatinine Estim Creat Clear Calc Est GFR (MDRD) Non-Af BUN/Creatinine Ratio Glucose Lactic Acid Calcium Total Bilirubin AST ALT Alkaline Phosphatase Total Creatine Kinase C-React Prot Ext Range Total Protein Albumin Globulin Albumin/Globulin Ratio Triglycerides Procalcitonin TSH Urine Color Yellow Urine Clarity Clear Urine pH 6.0 Ur Specific [place] 1.015 Urine Protein 30 H Urine Glucose (UA) Normal Urine Ketones Negative Urine Occult Blood Negative Urine Nitrite Negative Urine Bilirubin Negative Urine Urobilinogen Normal Ur Leukocyte Esterase Negative Urine RBC 0-5 SEEN Urine WBC 0-5 SEEN Ur Squamous Epith Cells 0-5 SEEN Ur Transition Epith Cell 0-5 SEEN Urine Bacteria 1+ Urine Mucus 0 SEEN Urine Osmolality Ur Random Sodium Urine Creatinine Urine Potassium Urine Chloride Urine Urea Nitrogen Patient was not started on antibiotics and she does not have pyuria and only bacteriuria. ABG Data Attestation: I personally reviewed and interpreted this ABG as follows: Interpretation: Metabolic acidosis with increased AA gradient. ABG results: ABG 03/18/25 18:22 Specimen Type ART Sample Site L Brach pH 7.32 L Bicarbonate Actual 30.3 H Total CO2 32 Base Excess 4 H O2 Saturation 97 O2 % 40.0 ABG pCO2 59.2 H ABG pO2 101 H Respiration Rate 14 O2 Delivery Device Adult Vent Vent Mode AC/VC Tidal Volume 400.0 POC PEEP 5 Radiography Chest X-Ray - ED: 2 View, Read by ED Physician (Limited study due to poor inspiratory volume versus restricted lung volume. Because of this the cardiac silhouette is obstructed slightly. There is no obvious infiltrate or effusion. There is no acute osseous fracture or abnormalities.) and - (Postintubation x-ray and KUB were reviewed by me. Endotracheal tube is approximately 1 to 1.5 cmabove the abigail. Story volume is limited. OG is in proper position.) Diagnostic Testing: Clinical Impression(s) from Imaging Studies Brain CT 03/18/25 15:30 IMPRESSION: No acute intracranial process. Reading Location: [id number] Chest X-Ray 03/18/25 15:35 IMPRESSION: Bilateral low lung volumes. No acute cardiopulmonary abnormality. Reading Location: [id number] Chest X-Ray 03/18/25 17:44 IMPRESSION: 1. Endotracheal tube tip 3.1 cm above the abigail. 2. Enteric tube appropriately positioned terminating in the upper midabdomen. 3. Cardiomegaly, with increased vascular markings and possible interstitial edema. Reading Location: [facility] KUB X-Ray 03/18/25 18:00 IMPRESSION: Enteric tube terminates appropriately within the stomach. Persistent IV contrast opacifying the kidneys suggesting medical renal disease with delayed excretion. Reading Location: [facility] Abdomen/Pelvis CTA 03/18/25 18:50 IMPRESSION: 1. No acute or active inflammatory intra-abdominal pathology. 2. Stable saccular infrarenal abdominal aortic aneurysm measuring up to 4.4 cm. 3. Indeterminate 15 mm right adrenal gland nodule, probably adenoma. Suggest follow-up dedicated adrenal CT or MRI in 12 months to assess stability. Reading Location: [facility] Chest X-Ray 03/18/25 19:02 IMPRESSION: 1. New right subclavian approach central venous catheter, tip at the lower SVC. 2. Stable positioning of the endotracheal and enteric tubes. 3. Unchanged lung aeration. Stable cardiomegaly. Reading Location: [facility] I did review the CAT scan. The CAT scan revealed no obvious intracranial process. CT of the abdomen pelvis with IV contrast does reveal a infrarenal abdominal aortic aneurysm. There is no evidence of leak/rupture. Management Discussion w/another healthcare provider: Hospitalist (Spoke with joyce Lee the hospitalist. She was informed of patient's change in condition and will need admission to ICU.) Treatment and Re-Evaluation :: Since patient is hypotensive will administer IV fluid bolus. When I went in to speak to patient and family she was somnolent. She was drooling. She was not responsive to verbal or tactile stimulus. Capnometer wasplaced. And her CO2 is greater than 80. In light of this she was prepped for all tracheal ovation. She also desaturated. She was ventilated by [id number] by respiratory therapist and me. Once her saturation reached 97%she was intubated easily with a 7.5 Mozambican endotracheal tube. The tube was seenpassing through the cords. Capnometer change appropriate color. Will obtain chest x-ray to confirm position as well as place OG and obtain KUB. Patient was medicated with 20 mg of etomidate and 60 mg of rocuronium. Since she is hypotensive she will receive fentanyl IV push and fentanyl drip. After contacting the hospital patient had a drop in blood pressure. She does not have a palpable carotid radial or femoral pulse. She had an outpatient CAT scan which revealed a 5.5 cm abdominal aortic aneurysm. Since patient has undifferentiated shock will need to obtain CT to rule out leaking aneurysm. Patient is not able to give consent. A right subclavian line was placed by me. This was done under emergent conditions. I do not in the room was capped and masked. I was in appropriate attire. Hospital protocol was adhered to first procedural sterility. Patient was prepped draped sterile manner. Drape was applied. Area was anesthetized. The right subclavian vein was cannulated Heather first attempt. Using Seldinger technique 7.5 Mozambican triple-lumen was placed without difficulty. Blood was aspirated from all 3 ports. Will obtain chest x-ray to confirm placement and evaluate for pneumothorax. Chest x-ray status post right subclavian line placement reveals the line to be in proper position. There is no evidence of pneumothorax or hemothorax. Comments:: Jackson is asked to page the hospitalist at [phone]. Procedures Other Procedures Procedure(s): 7.5 Mozambican triple-lumen placed right subclavian. Documentation under [facility] portion of the medical records. Critical Care Time Critical Care Time: Yes Critical care time (excluding procedures): 30-74 minutes (34), Including time spent: (History, physical, documentation, independent or potation laboratory results and images, treatment for hypotension of unknown cause), Discussing w/Patient &/or Family/Refractory Products Supervisor (Inform patient that since she has gotten worseand has multiple medical problems she will require intubation admission ICU), Discussing w/Consultants (Hospitalist) and Arranging Admission or Transfer Discharge Plan Dx/Rx/DC Orders Clinical Impression: Acute on chronic respiratory failure with hypoxia and hypercapnia, Acute hypotension, Debility, Acute kidney injury, Acute dehydration, Bacteria in urine, Hypothermia Disposition Disposition: Acute Care Hospital [facility] Discharge Date/Time: 03/18/25 20:50 What to do if you have Problems For any increased pain, shortness of breath, bleeding, nausea or vomiting, chestpain, or any unexpected problems, contact your Primary Care Provider. Call [facility] ([phone]) or report to the closest Emergency Room. Call 911 if necessary. 03/19/25 1524 <Electronically signed by Deion Leyv MD> Cosigner Signature (if applicable): CC: Dr. Kamar Grimes MD ~ Signed [facility] Work Phone: 1(423) 139-466109-17-2025 Consult note Author Una Smith [facility] Note Date/Time March 19, 2025 3:18pm [facility] Medical Records Department [address] [place] [address] Pharmacokinetic/Renal -Consult 03/18/25 215 MR#: [id number] Acct: [id number] Name: OSCAR WOO Rep #:[id number] : 1950 75 From: Una Smith PCP: Dr. Kamar Grimes MD Status:ADM IN Y Location: ICU ICU02-1 Consult Antibiotic Management Pharmacy has been consulted to manage selected antibiotic: Vancomycin Type of Intervention Type of Consult: New start Suspected Infection Suspected Infection: Sepsis Labs Labs: Sodium 131 mmol/L (133-145) L 03/18/25 15:15 Potassium 4.4 mmol/L (3.3-5.1) 03/18/25 15:15 Chloride 84 mmol/L (98-108) L 03/18/25 15:15 Carbon Dioxide 32.8 mmol/L (21.0-32.0) H 03/18/25 15:15 Anion Gap 14 (5-15) 03/18/25 15:15 BUN 51 mg/dL (4-19) H 03/18/25 15:15 Creatinine 2.22 mg/dL (0.70-1.20) H 03/18/25 15:15 Est GFR (MDRD) Non-Af 22 (>60) L 03/18/25 15:15 BUN/Creatinine Ratio 22.8 RATIO (10-20) H 03/18/25 15:15 Glucose 115 mg/dL (70-99) H 03/18/25 15:15 Estimated Creatinine Clearance Estimated Creatinine Clearance: 27.85 Goal Trough Goal Trough: 15-20 mcg/mL Pharmacy Plan for Drug Dosing Pharmacy Plan for Drug Dosing: NEW START IV VANCOMYCIN Consulting Physician: Dr. Lee Indication: Sepsis Goal Trough: 15-20 SrCr: 2.22 CrCl: 27.85 Comments: Received loading dose 2000mg x1 @ 21:39 03/18/25 Vancomycin Dose: 1250mg Q24H to start @ 21:30 03/19/25 Pending Level: 03/20/25 @ 21:00 prior to 3rd dose Pharmacy Service will continue to monitor and adjust dosing as required. Follow-Up Labs Follow-Up Labs: Trough: Vancomycin (03/20/25 @ 21:00) 03/18/25 1402 <Electronically signed by Una Smith> Date _ Una Smith 03/19/25 4668 <Electronically signed by Emili Lee MD> Cosigner Signature (if applicable): Date Emili Lee MD CC: ~ Signed [facility] Work Phone: 1(235) 952-823309-17-2025 Progress note Author Antwan Gardner [facility] Note Date/Time March 19, 2025 10:41am [facility] Medical Records Department [address] [place] [address] Progress Note 03/19/25 0809 MR#: [id number] Acct: [id number] Name: OSCAR WOO Rep #:[id number] : 1950 75 From: Atnwan Gardner DO PCP: Dr. 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 The patient initially presented to the emergency department with altered mental status with negative CT imaging of the head. Herinitial presentation was complicated by hypotension, which was refractory to fluid resuscitation. In light of the patient's altered mental status and fear for airway protection, the patient was intubated in the emergency department. Asubclavian central venous catheter was also placed. The patient was ultimately admitted to the medical intensive care unit with undifferentiated shock and needfor vasopressor support. She remains on empiric broad-spectrum antimicrobials and has been noted to have increasing vasopressor requirement over the course ofthe morning. Therefore, in addition to continuing Levophed, vasopressin and stress dose steroids were initiated. Her infectious workup is pending. Blood counts are currently stable. Repeat echocardiogram is pending. A follow-up ABGthis morning demonstrated a pH of 7.46 with a pCO2 of 48 and pO2 of 63. Creatinine is elevated at 2.06. Lactate is within normal limits. Full supportive care will be continued, pending outcome of patient family discussion regarding goals of care. 03/19/25 1041 <Electronically signed by Antwan Gardner DO> Antwan Gardner DO Cosigner Signature (if applicable): CC: ~ Signed [facility] Work Phone: [phone] 490-379209-17-2025 NoteAcceptable Specimen? Acceptable Specimen(Evaluation not needed) Gram Stain 2+ White Blood Cells Rare Gram positive rods No Epithelial cellsWooster Community HospitalComment on above:Performed By: #### M100.2400, M100.1999 ####[facility] [address] [place], [phone] Progress note Author Rivera Ramírez [facility] Note Date/Time March 19, 2025 6:51am [facility] Medical Records Department [address] [place] [address] Progress Note - Hospitalist 03/19/25 0647 MR#: [id number] Acct: [id number] Name: OSCAR WOO Rep #:[id number] : 1950 75 From: Rivera Pollock PCP: Dr. Kamar Grimes MD Status:ADM IN Location: ICU ICU02-1 Hospitalist Note 0162 called by nursing supervisor television chassis repair to assist with arterial line. upon arrival, patient awake and intubated. After 1% lido skin wheel, attempt x2 on right radial under US, access obtained unable to thread catheter. Attempt x1 left radial under US unsuccessful. 1% lido skin wheel right radial under US with micropuncture catheter successful. Patient tolerated procedure well. 03/19/25650 <Electronically signed by Rivera Ramírez CRNA> Cosigner Signature (if applicable): CC: ~ Signed [facility] Work Phone: [phone] Radiology Diagnostic study [facility]09-17-2025 Consult note Author Wally Waddell [facility] Note Date/Time March 19, 2025 1:27am [facility] Medical Records Department [address] [place] [address] Consultation - Trimmer Machine Operator 03/19/25 0121 MR#: [id number] Acct: [id number] Name: VIRIDIANA WOOISIDORO Dowling Rep #:[id number] : 1950 75 From: Wally mueller MD PCP: Dr. Kamar Grimes MD Status:ADM IN Location: ICU ICU02-1 HPI Consult Data Date of Consult: 03/19/25 HPI Narrative HPI Narrative: 75-year-old female with a history of restless leg syndrome, hypertension, depression, hypertension presented [facility] ED 03/18/2025 due to altered mental status. She had a recent CTA w/ a Infrarenal AAA and repeat CTA showed no rupture, no obvious PE. She was intubated and started on vasopressors and broad abx for ? Septic shock. [facility] Medical History Infection and inflammatory reaction due [...] never substance use type: does not use Objective Data Objective Data Vital Signs: Vital Signs Last response 3 Temperature 35.6 C L 03/19/25 00:00 Temperature Source Core 03/19/25 00:00 Pulse Rate 97 03/19/25 01:12 Pulse Strength Normal (2+) 03/18/25 22:00 Respiratory Rate 25 H 03/19/25 01:12 Respiratory Effort Mechanically Ventilated 03/19/25 00:00 Respiratory Depth Normal 03/19/25 00:00 Respiratory Pattern Normal 03/19/25 00:00 Blood Pressure 80/58 L 03/19/25 00:18 Blood Pressure Mean 65 03/19/25 00:18 Blood Pressure Source Monitor 03/19/25 00:00 Blood Pressure Position Semi-Fowlers 03/18/25 23:00 Blood Pressure Location Right Arm 03/18/25 23:00 Pulse Ox 100 03/19/25 01:12 Oxygen Delivery Method Mechanical Ventilator 03/19/25 00:00 Oxygen Flow Rate (L/min) 4 03/18/25 17:48 Fraction of Inspired Oxygen (FIO2) 40 03/19/25 00:00 EtCo2 - Document during CPR and with ROSC 79 03/18/25 17:30 CLA-BSI maintained Yes: 5 Fr 03/18/25 23:36 I&O: I&O Last 24 Hours 3 03/18/25 03/18/25 03/19/25 11:59 23:59 11:59 Intake Total 1713.38 / 1720.76 121.75 / 121.75 Output Total 1100 / 1100 800 / 800 Balance 613.38 / 620.76 -678.25 / -678.25 I&O: Total Stay 3 03/18/25 14:53 thru 03/19/25 00:45 Intake Total 1835.13 Output Total 1900 Balance -64.87 Current Meds Ordered / Administered: Current meds ordered / Administered 3 Generic Name Dose Route Start Last Admin Trade Name Freq PRN Reason Stop Dose Admin Albuterol Sulfate 2.5 mg 03/18/25 20:43 Albuterol 2.5 Mg/3 Ml Vial.Neb. INHALATION Q2H PRN PRN SOB &/OR WHEEZING Albuterol/Ipratropium 3 ml 03/18/25 20:43 03/18/25 22:58 Ipratropium/Albuterol Sulfate 3 Ml Ampul.Neb INHALATION 3 ml Q4H.RT KACEY Administration Aspirin 81 mg 03/18/25 22:00 03/18/25 22:05 Aspirin 81 Mg Tab.Chew PO 81 mg BID KACEY Administration Chlorhexidine Gluconate 15 ml 03/18/25 22:00 03/18/25 21:40 Chlorhexidine 15 Ml PO 15 ml BID KACEY Administration Enoxaparin Sodium 30 mg 03/19/25 06:00 Enoxaparin 30 Mg/0.3 Ml Syringe SC DAILY@0600 KACEY Fentanyl 100 mls @ 2.5 mls/hr 03/18/25 17:45 03/19/25 00:30 CONT INF 50 mcg/hr UD KACEY 5 mls/hr Titration Protocol 25 MCG/HR Norepinephrine Bitartrate 8 mg 250 mls @ 9.375 mls/hr 03/18/25 18:10 03/19/2500:18 / Sodium Chloride CONT INF 10 mcg/min .[id number] KACEY 18.8 mls/hr Titration Protocol 5 MCG/MIN Pantoprazole Sodium 40 mg/ 100 mls @ 300 mls/hr 03/19/25 10:00 Sodium Chloride IV Q24 KACEY Meropenem 1 gm/ Sodium 100 mls @ 33 mls/hr 03/19/25 10:00 Chloride IV Q12 KACEY Vancomycin IV-PHARMACY TO DOSE 500 mls @ 250 mls/hr 03/18/25 21:00 1 each/ Sodium Chloride IV PRN PRN Rx to Dose Protocol Sodium Chloride 250 mls @ 15 mls/hr 03/18/25 21:14 IV .[id number] PRN Saline Flush Sodium Chloride 250 mls @ 15 mls/hr 03/18/25 21:14 IV .[id number] PRN Additional IVPB Infusion Sodium Chloride 1,000 mls @ 1 mls/hr 03/18/25 21:14 IV .Q48H PRN Saline Flush Vancomycin HCl 1,250 mg/ 275 mls @ 167 mls/hr 03/19/25 21:30 Sodium Chloride IV Q24H [facility] Propofol 1,000 mg in 100 mls @ 6.732 mls/hr 03/18/25 23:10 03/19/25 00:45 Diprivan CONT INF 20 mcg/kg/min .Q12H KACEY 13.5 mls/hr Titration Protocol 10 MCG/KG/MIN Senna/Docusate Sodium 2 tablet 03/18/25 20:43 Senna/Docusate Sodium 1 Tablet PO BID PRN PRN Constipation Sodium Chloride 10 - 40 ml 03/18/25 21:14 03/18/25 22:09 0.9% Saline Lock 10 Ml Syringe IV 10 ml UD PRN Administration SALINE FLUSH Vancomycin Protocol 1 lab 03/20/25 20:00 Vancomycin Trough/Random Due [facility] 03/20/25 22:00 DAILY [facility] Physical Exam Vital Signs/Image Vital Signs/Narrative: Vital Signs Temp Pulse Resp BP Pulse Ox O2 Del Method FiO2 03/19/25 01:12 97 25 H 100 03/19/25 00:18 80/58 L 03/19/25 00:00 Mechanical Ventilator 40 03/19/25 00:00 35.6 C L 85 25 H 98/54 L 97 Mechanical Ventilator 40 03/18/25 23:45 165/78 H 03/18/25 23:30 79/56 L 03/18/25 23:00 34.7 C L 82 17 145/75 H 97 Mechanical Ventilator 40 03/18/25 22:58 78 16 96 03/18/25 22:58 81 14 03/18/25 22:00 79 03/18/25 22:00 33.3 C L 87 14 202/116 H 91 Mechanical Ventilator 40 03/18/25 21:54 33.3 C L 77 14 196/133 H 95 Mechanical Ventilator 40 03/18/25 21:30 33.0 C L 90 14 190/123 H 94 Mechanical Ventilator 40 03/18/25 21:30 190/123 H 03/18/25 21:30 76 14 100 03/18/25 21:26 33.0 C L 79 14 191/141 H 97 Mechanical Ventilator Physical Exam Eyes: Positive for Perrl and EOMI Cardiovascular: Positive for Regular rate and Regular rhythm Respiratory: Positive for - (passive on vent) Abdomen: Positive for Soft, Nontender and Nondistended Vital Signs/Image Vital Signs/Narrative: Vital Signs Temp Pulse Resp BP Pulse Ox O2 Del Method FiO2 03/19/25 01:12 97 25 H 100 03/19/25 00:18 80/58 L 03/19/25 00:00 Mechanical Ventilator 40 03/19/25 00:00 35.6 C L 85 25 H 98/54 L 97 Mechanical Ventilator 40 03/18/25 23:45 165/78 H 03/18/25 23:30 79/56 L 03/18/25 23:00 34.7 C L 82 17 145/75 H 97 Mechanical Ventilator 40 03/18/25 22:58 78 16 96 03/18/25 22:58 81 14 03/18/25 22:00 79 03/18/25 22:00 33.3 C L 87 14 202/116 H 91 Mechanical Ventilator 40 03/18/25 21:54 33.3 C L 77 14 196/133 H 95 Mechanical Ventilator 40 03/18/25 21:30 33.0 C L 90 14 190/123 H 94 Mechanical Ventilator 40 03/18/25 21:30 190/123 H 03/18/25 21:30 76 14 100 03/18/25 21:26 33.0 C L 79 14 191/141 H 97 Mechanical Ventilator Physical Exam General: Positive for Well nourished and Well developed Eyes: Positive for Perrl and EOMI Neck: Positive for Nontender Cardiovascular: Positive for Regular rate and Regular rhythm Respiratory: Positive for - (passive on vent) Abdomen: Positive for Soft, Nontender and Nondistended Neurological: Positive for Alert Lab / Micro Data 03/18/25 15:15 03/18/25 [...] 84.3 H, Lymph % (Auto) 7.4 L, Lyon % (Auto) 7.0, Eos % (Auto) 0.0, Baso % (Auto) 0.4, Absolute Neuts (auto) 8.4 H, Absolute Lymphs (auto) 0.73 L, Nucleated RBC % 0, ESR 37 H, PT 12.4, INR 0.9, APTT 27.8, Sodium 131 L, Potassium 4.4, Chloride 84 L, Carbon Dioxide 32.8 H, Anion Gap 14, BUN 51 H, Creatinine 2.22 H, Estim Creat Clear Calc 27.85 L, Est GFR (MDRD) Non-Af 22 L, BUN/Creatinine Ratio 22.8 H, Glucose 115 H, Lactic Acid 1.1, Calcium 9.7, Total Bilirubin 0.35, AST 86 H, ALT 61 H, Alkaline Phosphatase 162 H, C- React Prot Ext Range 5.32 H, Total Protein 7.7, Albumin 4.1, Globulin 3.6, Albumin/Globulin Ratio 1.1, Procalcitonin 0.10, TSH 1.650 03/18/25 15:24: Urine Color Yellow, Urine Clarity Clear, Urine pH 6.0, Ur Specific [place] 1.015, Urine Protein 30 H, Urine Glucose (UA) Normal, Urine Ketones Negative, Urine Occult Blood Negative, Urine Nitrite Negative, Urine Bilirubin Negative, Urine Urobilinogen Normal, Ur Leukocyte Esterase Negative, Urine RBC 0-5 SEEN, Urine WBC 0-5 SEEN, Ur Squamous Epith Cells 0-5 SEEN, Ur Transition Epith Cell 0-5 SEEN, Urine Bacteria 1+, Urine Mucus 0 SEEN 03/18/25 21:46: NT pro BNP II 2155 H Micro: Microbiology 03/18/25 20:15 Mucosa - Nasopharyngeal Respiratory Panel (PCR) - Final ABG Data ABG results: ABG 03/18/25 18:22 [...] IMPRESSION: No acute intracranial process. Reading Location: [id number] Chest X-Ray 03/18/25 15:35 IMPRESSION: Bilateral low lung volumes. No acute cardiopulmonary abnormality. Reading Location: [id number] Chest X-Ray 03/18/25 17:44 IMPRESSION: 1. Endotracheal tube tip 3.1 cm above the abigail. 2. Enteric tube appropriately positioned terminating in the upper midabdomen. 3. Cardiomegaly, with increased vascular markings and possible interstitial edema. Reading Location: [facility] KUB X-Ray 03/18/25 18:00 IMPRESSION: Enteric tube terminates appropriately within the stomach. Persistent IV contrast opacifying the kidneys suggesting medical renal disease with delayed excretion. Reading Location: [facility] Abdomen/Pelvis CTA 03/18/25 18:50 IMPRESSION: 1. No acute or active inflammatory intra-abdominal pathology. 2. Stable saccular infrarenal abdominal aortic aneurysm measuring up to 4.4 cm. 3. Indeterminate 15 mm right adrenal gland nodule, probably adenoma. Suggest follow-up dedicated adrenal CT or MRI in 12 months to assess stability. Reading Location: [facility] Chest X-Ray 03/18/25 19:02 IMPRESSION: 1. New right subclavian approach central venous catheter, tip at the lower SVC. 2. Stable positioning of the endotracheal and enteric tubes. 3. Unchanged lung aeration. Stable cardiomegaly. Reading Location: [facility] Assessment and Plan . Assessment and plan: AMS Acute Respiratory Failure Shock ELVIA AAA Hx of Prosthetic Joint Infection Plan - Admit ICU - Vent adjusted - Broad abx - Volume resus, on low dose levo - CT UE - ID Consult in the AM - ECHO tomorrow - GI and DVT ppx Critical Care Time: 60 minutes The entirety of this encounter was done via Telemedicine 03/19/25 0127 <Electronically signed by Wally Waddell MD> Cosigner Signature (if applicable): CC: Dr. Kamar Grimes MD~ Signed [facility] Work Phone: [phone] History and physical note Author Emili Lee [facility] Note Date/Time March 18, 2025 8:45pm [facility] Medical Records Department [address] [place] [address] H&P Exam - Hospitalist 03/18/251937 MR#: [id number] Acct: [id number] Name: OSCAR WOO Rep #:[id number] : 1950 75 From: Emili Lee MD PCP: Dr. Kamar Grimes MD Status:ADM IN Location: ICU ICU02-1 HPI - General General Date of Admission: 03/18/25 Date of Service: 03/18/25 Chief Complaint: Altered mental status HPI Narrative OSCAR WOO, is a 75-year-old female with a history of restless leg syndrome, hypertension, depression, hypertension presented [facility] ED 03/18/2025 due to altered mental status. [...] and had not been having any vomiting. [facility] Medical History Infection and inflammatory reaction due [...] 84.3 H, Lymph % (Auto) 7.4 L, Lyon % (Auto) 7.0, Eos % (Auto) 0.0, [...] Clarity Clear, Urine pH 6.0, Ur Specific [place] 1.015, Urine Protein 30 H, Urine Glucose [...] IMPRESSION: No acute intracranial process. Reading Location: [id number] Chest X-Ray 03/18/25 15:35 IMPRESSION: Bilateral low lung volumes. No acute cardiopulmonary abnormality. Reading Location: [id number] Chest X-Ray 03/18/25 17:44 IMPRESSION: 1. Endotracheal tube tip 3.1 cm above the abigail. 2. Enteric tube appropriately positioned terminating in the upper midabdomen. 3. Cardiomegaly, with increased vascular markings and possible interstitial edema. Reading Location: [facility] X-Ray 03/18/25 18:00 IMPRESSION: Enteric tube terminates appropriately within the stomach. Persistent IV contrast opacifying the kidneys suggesting medical renal disease with delayed excretion. Reading Location: [id number] Assessment & Plan Assessment/Plan (1) Shock: (2) [...] septic component at this time -Did order Pro-Kwesi, ESR, CRP however due to procedures and imaging these have yet to be obtained, will not delay antibiotics while awaiting labs, de-escalate as appropriate -Broad-spectrum antibiotics to be started -Patient be admitted to the ICU, gasoline dragline operator consulted - Patient received 1 L of IV fluids, not given further IV fluids due to recent diagnosis of heart failure and chest x-ray coronary congestion # Acute hypoxic hypercapnic respiratory failure -Patient came in altered, developed progressive hypoxia and was found to be hypercapnic, ultimately required intubation and sedation -Admit to ICU -Workup as above -Scheduled nebs -Will check proBNP - Trimmer Machine Operator consult #Acute renal failure - Creatinine was [...] medications once able #DVT ppx: SCDs Emili Lee MD Time spent in the [...] Vasopressors started Charges/Coding Visit Charges Inpatient E&M: 55483 Init Hosp L3 03/18/252044 <Electronically signed by Emili Lee MD> Cosigner Signature (if applicable): CC: Dr. Kamar Grimes MD; Dr. Emili Lee MD~ Signed [facility] Work Phone: 1(435) 548-995309-16-2025 Evaluation note* Diagnosis Onset Date Resolution Status Admit Date Acute dehydration acute [facility] 2024 7:38pm Acute hypotension acute [facility] 2024 7:38pm Acute kidney injury acute [facility] 2024 7:38pm Acute respiratory failure with hypoxia and hypercapnia acute Sep tember 2024 7:38pm Bacteria in urine acute [facility] 2024 7:38pm Debility acute March 7:38pm Hypothermia acute March 7:38pm Shock acute March 7:38pm Acute on chronic respiratory failure with hypoxia and hypercapnia chronic March 18, 2025 7:38pm [facility] Work Phone: [phone]) 834-815509-16-2025 Evaluation note* Diagnosis Onset Date Resolution Status Admit Date Acute dehydration acute [facility] 2024 7:38pm Acute hypotension acute [facility] 2024 7:38pm Acute kidney injury acute [facility] 2024 7:38pm Acute respiratory failure with hypoxia and hypercapnia acute [facility] 2024 7:38pm Bacteria in urine acute [facility] 2024 7:38pm Debility acute March 7:38pm Essential (primary) hypertension acute March 18, 2025 7:38pm Hypothermia acute March 7:38pm Infection of prosthetic shoulder joint acute March 18, 2025 7:38pm Saccular aneurysm acute [facility] 2024 7:38pm Shock acute March 7:38pm Acute on chronic respiratory failure with hypoxia and hypercapnia chronic March 18, 2025 7:38pm [facility] Work Phone: [phone] Evaluation note* Diagnosis Onset Date Resolution Status Admit Date Saccular aneurysm acute [facility] 2024 7:38pm Acute dehydration resolved [facility] 2024 7:38pm Acute hypotension resolved [facility] 2024 7:38pm Acute kidney injury resolved [facility] 2024 7:38pm Acute on chronic respiratory failure with hypoxia and hypercapnia resolved March 18, 2025 7:38pm Acute respiratory failure with hypoxia and hypercapnia resolved Mar 7:38pm Bacteria in urine resolved [facility] 2024 7:38pm Hypothermia resolved March 7:38pm Shock resolved March 7:38pm Debility inactive March 7:38pm Essential (primary) hypertension inactive March 18, 2025 7:38pm Infection of prosthetic shoulder joint inactive March 18, 2025 7:38pm Hypoxia acute April 16, 2025 3:22pm Pericardial effusion acute Oct[facility] 2024 3:22pm Saccular aneurysm acute April 16, 2025 3:22pm Hypertension chronic April 3:22pm Hypochloremic alkalosis resolved O ctober 2024 5:23pm Hyponatremia resolved April 5:23pm [facility] Work Phone: [phone]) 543-826209-16-2025 History and physical note [facility] Medical Records Department [address] [place] [address] H&P Exam - Hospitalist 03/18/251937 MR#: [id number] Acct: [id number] Name: OSCAR WOO Rep #:[id number] : 1950 75 From: Emili Lee MD PCP: Dr. Kamar Grimes MD Status:ADM IN Location: ICU ICU02-1 HPI - General General Date of Admission: 03/18/25 Date of Service: 03/18/25 Chief Complaint: Altered mental status HPI Narrative OSCAR WOO, is a 75-year-old female with a history of restless leg syndrome, hypertension, depression, hypertension presented [facility] ED 03/18/2025 due to altered mental status. Patient's last known well was 1600 on Monday, March 17. In ED patient had some slow speech and was noted to have bruise over the left lateral periorbital region after a fall out of bed. In ED temp96.4, heart rate of 68 with a blood pressure 79/63, respiratory rate 16 andpulse ox 79% on room air. CBC with white count of 9.9, hemoglobin 15.8. CMP with a sodium of 131, BUN of 51 and a creatinineof 2.22 up from 1.03 a week agowith [...] at bedside after CTA. Family members present atbedside including cousin, sister, granddaughter who is POA. Family reports she has had shortness ofbreath recently and a dry cough which is why she had the CTA, they were currently working her up and she was supposed see Dr. Reddy with cardiology buthas not had that appointment yet. Cousin at bedside reported the only other to think she complained of for being afraid to fall asleep but she feltlike she stopped breathing when she sleeps and some nausea over the past couple days but she had not commented on any diarrhea or abdominal pain and had not been having any vomiting. [facility] Medical History Infection and inflammatory reaction due [...] 93.5, MCH 29.3, MCHC 31.3 L, RDW StdDeviation 49.9 H, RDW Coeff of Terry 14.6, Plt Count 218, MPV 10.4, Immature Gran % (Auto) 0.900, Neut % (Auto) 84.3 H, Lymph % (Auto) 7.4 L, Lyon % (Auto) 7.0, Eos % (Auto) 0.0, [...] GFR (MDRD) Non-Af 22 L, BUN/Creatinine Ratio 22.8H, Glucose 115 H, Lactic Acid 1.1,Calcium 9.7, Total Bilirubin 0.35, AST 86 H, ALT 61 H, Alkaline Phosphatase 162 H, Total Protein 7.7, Albumin 4.1, Globulin 3.6, Albumin/Globulin Ratio 1.1, TSH1.650 03/18/25 15:24: Urine Color Yellow, Urine Clarity Clear, Urine pH 6.0, Ur Specific [place] 1.015, Urine Protein 30 H, Urine Glucose [...] IMPRESSION: No acute intracranial process. Reading Location: [facility] Chest X-Ray 03/18/25 15:35 IMPRESSION: Bilateral low lung volumes. No acute cardiopulmonary abnormality. Reading Location: [id number] Chest X-Ray 03/18/25 17:44 IMPRESSION: 1. Endotracheal tube tip 3.1 cm above the abigail. 2. Enteric tube appropriately positioned terminating in the upper midabdomen. 3. Cardiomegaly, with increased vascular markings and possible interstitial edema. Reading Location: [facility] X-Ray 03/18/25 18:00 IMPRESSION: Enteric tube terminates appropriately within the stomach. Persistent IV contrast opacifying the kidneys suggesting medical renal disease with delayed excretion. Reading Location: [id number] Assessment & Plan Assessment/Plan (1) Shock: (2) [...] workup not revealing for infectious source at thistime with UA with 1+ bacteria but no elevated white cells or leuk esterase or nitrite -Given patient's constellation of hypothermia, respiratory failure, hypotension,altered mental status, new onset renal failure do feel it is reasonable to coverpatient with antibiotics while awaitingculture results given cause of shock is still unclear and cannot rule out septic component at this t nohelia -Did order Pro-Kwesi, ESR, CRP however due to procedures and imaging these have yet to be obtained, will not delay antibiotics while awaiting labs, de-escalate as appropriate -Broad-spectrum antibiotics to be started -Patient be admitted to the ICU, gasoline dragline operator consulted - Patient received 1 L of IV fluids, not given further IV fluids due to recent diagnosis of heart failure and chest x-ray coronary congestion # Acute hypoxic hypercapnic respiratory failure -Patient came in altered, developed progressive hypoxia and was found to be hypercapnic, ultimatelyrequired intubation and sedation -Admit to ICU -Workup as above -Scheduled nebs -Will check proBNP - Trimmer Machine Operator consult #Acute renal failure - Creatinine was [...] infrarenal saccular aortic aneurysm measuring 3.8 x 4.5x 5.5, CT in the ED showed stability - Will need outpatient follow-up # Restless leg syndrome - Hold home medications while patient intubated and sedated #Hypertension - Patient came in hypotensive, hold home blood pressure medications #Depression/anxiety -Continue home medications once able #DVT ppx: SCDs Emili Lee MD Time spent in the [...] Vasopressors started Charges/Coding Visit Charges Inpatient E&M: 00136 Init Hosp L3 03/18/252044 Cosigner Signature (if applicable): CC: Dr. Kamar Grimes MD; Dr. Emili Lee MD~ Signed [facility]09-16-2025 Radiology Diagnostic study note [facility] Imaging Services [address] [place], [place] [address] CTA Abd/Pelvis W/WO Contrast MR#: [id number] Acct: [id number] Name: OSCAR WOO Rep #: [id number] : 1950 F 75 From: Kamran Leonard MD PCP: Dr. Kamar Grimes MD Status: ADM IN Study:CTA Abd/Pelvis W/WO Contrast Date of Ex am: 03/18/25 Exam# [id number] Ordering Dr: Mai Levy MD PROCEDURE: CTA [...] 12 months to assess stability. Reading Location: [facility] CC: Dr. Kamar Grimes MD; Dr. Deion Levy MD ~ Quality Measurement Specialist: Signed [facility]09-16-2025 Radiology Diagnostic study note [facility] Imaging Services [address] [place] [address] Chest 1 View (Portable) MR#: [id number] Acct: [id number] Name: OSCAR WOO Rep #: [id number] : 1950 F 75 From: Kamran Leonard MD PCP: Dr. Kamar Grimes MD Status: ADM IN Study:Chest 1 View (Portable) Date of Exam: 03/18/25 Exam# [id number] Ordering Dr: Mai Levy MD PROCEDURE: CHEST [...] Unchanged lung aeration. Stable cardiomegaly. Reading Location: [id number] CC: Dr. Kamar Grimes MD; Dr. Deion Levy MD ~ Quality Measurement Specialist: Signed [facility]09-16-2025 Radiology Diagnostic study note [facility] Imaging Services [address] [place] [address] Chest 1 View (Portable) MR#: [id number] Acct: [id number] Name: OSCAR WOO Rep #: [id number] : 1950 F 75 From: Kamran Leonard MD PCP: Dr. Kamar Grimes MD Status: REG ER Study:Chest 1 View (Portable) Date of Exam: 03/18/25 Exam# [id number] Ordering Dr: Mai Levy MD PROCEDURE: CHEST [...] markings and possible interstitial edema. Reading Location: [id number] CC: Dr. Kamar Grimes MD; Dr. Deion Levy MD ~ Quality Measurement Specialist: Signed [facility]09-16-2025 Radiology Diagnostic study note [facility] Imaging Services [address] [place] [address] Abdomen Single View (Portable) MR#: [id number] Acct: [id number] Name: OSCAR WOO Rep #: [id number] : 1950 F 75 From: Kamran Leonard MD PCP: Dr. Kamar Grimes MD Status: REG ER Study:Abdomen Single View (Portable) Date of Exam: 03/18/25 Exam# [id number] Ordering Dr: Mai Levy MD PROCEDURE: ABDOMEN [...] renal disease with delayed excretion. Reading Location: [facility] CC: Dr. Kamar Grimes MD; Dr. Deion Levy MD ~ Quality Measurement Specialist: Signed [facility]09-16-2025 Radiology Diagnostic study note [facility] Imaging Services [address] [place], [place] [id number] Chest PA and Lateral MR#: [id number] Acct: [id number] Name: OSCAR WOO Rep #: [id number] : 1950 F 75 From: Janelle Mares MD PCP: Dr. Kamar Grimes MD Status: REG ER Study:Chest PA and Lateral Date of Exam: 03/18/25 Exam# [id number] Ordering Dr: Mai Levy MD PROCEDURE: CHEST PA AND LATERAL 03/18/2025 REASON FOR EXAM: TACHYPNEA TECHNIQUE: Procedure Code: RADCXR Modality: DX Procedure: CHEST PA AND LATERAL FINDINGS: Hardware: Multiple monitoring leads overlying chest wall. Heart: Heart size is mildly enlarged. Mediastinum: The mediastinal contour is stable. Lungs: Bilateral low lung volumes. Bones: Degenerative changes of visualized spine.Status post bilateral reverse shoulder arthroplastywith surgical hardware demonstrating gross anatomic alignment RAD/Chest PA and Lateral IMPRESSION: Bilateral low lung volumes. No acute cardiopulmonary abnormality. Reading Location: [id number] CC: Dr. Kamar Grimes MD; Dr. Deion Levy MD ~ Quality Measurement Specialist: Signed [facility]09-16-2025 Radiology Diagnostic study note [facility] Imaging Services [address] [place] [address] [id number] Brain/Head without Contrast MR#: [id number] Acct: [id number] Name: OSCAR WOO Rep #: [id number] : 1950 F 75 From: Jennifer Shin MD PCP: Dr. Kamar Grimes MD Status: REG ER Study:Brain/Head without Contrast Date of Exa m: 03/18/25 Exam# [id number] Ordering Dr: Mai Levy MD PROCEDURE: BRAIN/HEAD [...] IMPRESSION: No acute intracranial process. Reading Location: [id number] CC: Dr. Kaamr Grimes MD; Dr. Deion Levy MD ~ Quality Measurement Specialist: Signed [facility]09-15-2025 [facility] Radiology Diagnostic study note [facility] Imaging Services [address] [place] [address] Chest PA and Lateral MR#: [id number] Acct: [id number] Name: OSCAR WOO Rep #: [id number] : 1950 F 75 From: Kaushal Orozco DO PCP: Dr. Kamar Grimes MD Status: REG CLI Study:Chest PA and Lateral Date of Exam: 02/10/25 Exam# [id number] Ordering Dr: Jennifer Grimes MD PROCEDURE: CHEST PA AND LATERAL [...] in the lung bases bilaterally and are similarwhen compared to the prior exam. There is no atelectasis, consolidation, effusion or pneumothorax. Emphysematous changes are noted. Bones: Diffuse osteopenia of the bony thorax is noted. The right PICC line catheter seen on the prior exam has been removed in the interim. RAD/Chest PA and Lateral IMPRESSION: The overall chest x-ray findings are similar when compared to the prior exam. Reading Location: [id number] CC: Dr. Kamar Grimes MD ~ Quality Measurement Specialist: Signed [facility]04-08-2025 Hospital Discharge instructions Additional Instructions Discharge home 10/08/2024, IV ATB thru 10/25/2024, Miguel [facility] PT/SN.[facility] Work Phone: 1(752) 338-592104-07-2025 Progress note Author Sixto Andrade [facility] Note Date/Time October 07, 2024 7:23 pm [facility] Medical Records Department [address] [place] [address] Progress Note - Infect Disease 10/07/241920 MR#: [id number] Acct: [id number] Name: OSCAR WOO Rep #:[id number] : 1950 74 From: Sixto calhoun MD PCP: Dr. Kamar Grimes MD Status:ADM IN Location: [place] [address] Physical Exam Narrative New bilat eye redness [...] Cosigner Signature (if applicable): CC: ~ Signed [facility] Work Phone: 1(914) 643-238104-07-2025 Progress note [facility] Medical Records Department [address] [place] [address] Progress Note - Infect Disease 10/07/241920 MR#: [id number] Acct: [id number] Name: OSCAR WOO Rep #:[id number] : 1950 74 From: Sixto calhoun MD PCP: Dr. Kamar Grimes MD Status:ADM IN Location: [place] [address] Physical Exam Narrative New bilat eye redness [...] Cosigner Signature (if applicable): CC: ~ Signed [facility]04-07-2025 Consult note Author Ashley Sue [facility] Note Date/Time October 07, 2024 2:14 pm [facility] Medical Records Department [address] [place] [address] Pharmacokinetic/Renal -Consult 09/29/24 1013 MR#: [id number] Acct: [id number] Name: OSCAR WOO Rep #:[id number] : 1950 74 From: Ashley Sue PCP: Dr. Kamar Grimes MD Status:ADM IN Y [facility] Pharm[facility] has been consulted [...] Date Sixto Andrade MD CC: ~ Signed [facility] Work Phone: 1(219) 310-847804-07-2025 Consult note Author Tino Law [facility] Note Date/Time October 07, 2024 2:14 pm [facility] Medical Records Department [address] [place] [address] Pharmacokinetic/Renal -Consult 10/01/24 09 MR#: [id number] Acct: [id number] Name: OSCAR WOO Rep #:[id number] : 1950 74 From: Tino Law PCP: Dr. Kamar Grimes MD Status:ADM IN Location: [place] [address] Consult Antibiotic Management Pharmacy has been consulted [...] __ Sixto Andrade MD CC: ~ Signed [facility] Work Phone: 1(457) 666-988204-07-2025 Consult note [facility] Medical Records Department [address] [facility] [place] [address] Pharmacokinetic/Renal -Consult 09/29/24 1013 MR#: [id number] Acct: [id number] Name: OSCAR WOO Rep #:[id number] : 1950 74 From: Ashley Sue PCP: Dr. Kamar Grimes MD Status:ADM IN Location: [place] [address] Consult Antibiotic Management Pharmacy has been consulted [...] Date _ Ashley Sue 10/07/24 1414 jan > Yanick Signature (if applicable): Date Sixto Andrade MD CC: ~ Signed [facility]04-07-2025 Consult note [facility] Medical Records Department [address] [place] [address] Pharmacokinetic/Renal -Consult 10/01/24 09 MR#: [id number] Acct: [id number] Name: OSCAR WOO Rep #:[id number] : 1950 74 From: Tino Law PCP: Dr. Kamar Grimes MD Status:ADM IN Y Location: [place] [address] Consult Antibiotic Management Pharmacy has been consulted [...] __ Sixto Andrade MD CC: ~ Signed [facility]04-06-2025 Consult note Author Jonh Khalil [facility] Note Date/Time October 06, 2024 12:5 3pm [facility] Medical Records Department [address] [place] [address] Pharmacokinetic/Renal -Consult 10/06/24 0956 MR#: [id number] Acct: [id number] Name: OSCAR WOO Rep #:[id number] : 1950 74 From: Jonh kurtz PCP: Dr. Kamar Grimes MD Status:ADM IN Location: [place] [address] Consult Antibiotic Management Pharmacy has been consulted [...] Khalil 10/06/24 1253 <Electronically signed by Rodrigo Mosher D> Cosigner Signature (if applicable): Date Rodrigo Sanches MD CC: ~ Signed [facility] Work Phone: 1(316) 478-843904-06-2025 Consult note [facility] Medical Records Department [address] [place] [address] Pharmacokinetic/Renal -Consult 10/06/24 0956 MR#: [id number] Acct: [id number] Name: OSCAR WOO Rep #:[id number] : 1950 74 From: Jonh kurtz PCP: Dr. Kamar Grimes MD Status:ADM IN Y Location: [place] [address] Consult Antibiotic Management Pharmacy has been consulted [...] Date Rodrigo Sanches MD CC: ~ Signed [facility]04-01-2025 Discharge summary Author Rodrigo Myron [facility] Note Date/Time October 01, 2024 8:03 pm [facility] Medical Records Department [address] [place] [address] Discharge Summary 10/01/241955 MR#: [id number] Acct: [id number] Name: OSCAR WOO Rep #:[id number] : 1950 74 From: Rodrigo Sanches MD PCP: Dr. Kamar Grimes MD Status:ADM IN Location: [place] [address] Providers Date of Admission: 09/18/24 Primary Care Physician: Dr. 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 * Dry eyes [...] Discharge home 10/08/2024, IV ATB thru 10/25/2024, [facility] PT/SN. Physical Exam Const alert General Appearance: [...] Discharge home 10/08/2024, IV ATB thru 10/25/2024, [facility] PT/SN. Please Follow Up With: Fahad Cavanaugh [...] Provider: Rodrigo Sanches Chi Primary Care Provider: Kamar Grimes Consulting Providers: Sixto Andrade Instructions Additional Instructions / Restrictions: Discharge home 10/08/2024, IV ATB thru 10/25/2024, [facility] PT/SN. Discharge Orders/Prescriptions Prescriptions: Continued losartan 50 [...] cbc, vanc trough, and esr. Fax to [phone]. Routine picc care per protocol. rifampin 300 mg Capsule 300 mg PO BID 39 Days Qty: 78 0RF Referrals / Follow Up: Kamar Grimes MD [Primary Care Provider] - Fahad Cavanaugh MD [Med Staff - Active Staff] - 10/25/24 10:30 am Disposition Disposition (needs filled in before D/C Order can be placed): Home Health Service 10/01/242002 <Electronically signed by Rodrigo Sanches MD> Cosigner Signature (if applicable): CC: Dr. Kamar Grimes MD; Dr. Rodrigo Sanches MD~ Signed [facility] Work Phone: 1(924) 363-901504-01-2025 Discharge summary [facility] Medical Records Department [address] [place] [address] Discharge Summary 10/01/241955 MR#: [id number] Acct: [id number] Name: SOCAR WOO Rep #:[id number] : 1950 74 From: Rodrigo Sanches MD PCP: Dr. Kamar Grimes MD Status:ADM IN Location: [place] [address] Providers Date of Admission: 09/18/24 Primary Care Physician: Dr. 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 * Dry eyes [...] Discharge home 10/08/2024, [facility] 10/25/2024[facility] PT/SN. Physical Exam Const alert General Appearance: [...] Discharge home 10/08/2024, IV ATB thru 10/25/2024, [facility] PT/SN. Please Follow Up With: Fahad Cavanaugh [...] Provider: Rodrigo Sanches Chi Primary Care Provider: Kamar Grimes Consulting Providers: Sixto Andrade Instructions Additional Instructions / Restrictions: Discharge home 10/08/2024, IV ATB thru 10/25/2024, [facility] PT/SN. Discharge Orders/Prescriptions Prescriptions: Continued losartan 50 [...] cbc, vanc trough, and esr. Fax to [phone]. Routine picc care per protocol. rifampin 300 mg Capsule 300 mg PO BID 39 Days Qty: 78 0RF Referrals / Follow Up: Kamar Grimes MD [Primary Care Provider] - Fahad Cavanaugh MD [Med Staff - Active Staff] - 10/25/24 10:30 am Disposition Disposition (needs filled in before D/C Order can be placed): Home Health Service 10/01/242002 Cosigner Signature (if applicable): CC: Dr. Kamar Grimes MD; Dr. Rodrigo Sanches MD~ Signed [facility]04-01-2025 [facility] Consult note Author Tino Law [facility] Note Date/Time September 27, 2024 9:2 0am [facility] Medical Records Department [address] [place] [address] Pharmacokinetic/Renal -Consult 09/24/24 0947 MR#: [id number] Acct: [id number] Name: ABELOSCAR Nitesh Rep #:[id number] : 1950 74 From: Tino Law PCP: Dr. Kamar Grimes MD Status:ADM IN Y Location: [place] [address] Consult Antibiotic Management Pharmacy has been consulted [...] Tino calhoun> Date _ Tino Law 09/27/24 0920 <Electronically signed by Sixto montoya MD> Cosigner Signature (if applicable): Date Sixto Andrade MD CC: ~ Signed [facility] Work Phone: 1(222) 921-945603-28-2025 Consult note [facility] Medical Records Department [address] [place] [address] Pharmacokinetic/Renal -Consult 09/24/24 0947 MR#: [id number] Acct: [id number] Name: OSCAR WOO Rep #:[id number] : 1950 74 From: Tino Law PCP: Dr. Kamar Grimes MD Status:ADM IN Location: [place] [address] Consult Antibiotic Management Pharmacy has been consulted [...] Date Sixto Andrade MD CC: ~ Signed [facility]03-23-2025 Consult note Author Renee Zarate [facility] Note Date/Time September 22, 2024 11: 33[facility] Medical Records Department [address] [place] [address] Pharmacokinetic/Renal -Consult 09/22/24 1047 MR#: [id number] Acct: [id number] Name: OSCAR WOO Rep #:[id number] : 1950 74 From: Renee Zarate PCP: Dr. Kamar Grimes MD Status:ADM IN Location: [place] [address] Consult Antibiotic Management Pharmacy has been consulted [...] monitor and adjust dosing as required. 09/22/24 104 <Electronically signed by Renee Zarate > Date _ Renee Zarate 09/22/24 1133 <Electronically signed by Rodrigo Chi> Cosigner Signature (if applicable): Date Rodrigo Sanches MD CC: ~ Signed [facility] Work Phone: 1(620) 758-623403-23-2025 Consult note [facility] Medical Records Department [address] [place] [address] Pharmacokinetic/Renal -Consult 09/22/24 1047 MR#: [id number] Acct: [id number] Name: WOOOSCAR TORRES Rep #:[id number] : 1950 74 From: Renee Zarate PCP: Dr. Kamar Grimes MD Status:ADM IN Y Location: [place] [address] Consult Antibiotic Management Pharmacy has been consulted [...] as required. 09/22/24 1047 > Date _ Renee Zarate 09/22/24 1133 D> Cosigner Signature (if applicable): Date Rodrigo Sanches MD CC: ~ Signed [facility]03-21-2025 Progress note Author Renee Rustshanon [facility] Note Date/Time September 20, 2024 1:4 3pm [facility] Medical Records Department [address] [place] [address] Progress Note - Pharmacy 09/19/24 1427 MR#: [id number] Acct: [id number] Name: OSCAR WOO Rep #:[id number] : 1950 74 From: Renee Zarate PCP: Dr. Kamar Grimes MD Status:ADM IN Location: [place] [address] TCU RX Drug Regimen Review Subjective/Objective Subjective/Objective Subjective: 74 YOF admitted to TCU on 09/18/24 s/p hospitalization to [facility] for a left shoulder joint infection. [...] 10 Mg Tablet PO 10 mg QHS [facility] Administration Metoprolol Tartrate 25 mg 09/18/24 22:00 09/19/24 07:50 Metoprolol Tartrate 25 Mg Tablet PO 25 mg BID KACEY Administration Protocol Mirtazapine 15 mg 09/18/24 22:00 09/18/24 22:00 Mirtazapine 15 Mg Tablet PO 15 mg QHS [facility] Administration Oxycodone HCl 5 - 10 mg 09/18/24 13:16 09/19/24 07:49 Oxycodone 5 Mg Tablet PO 10 mg Q4H PRN PRN Administration Pain Score 4-10 Pramipexole Dihydrochloride 1 mg 09/18/24 22:00 09/18/24 22:00 Pramipexole Di-Hcl 1 Mg Tablet PO 1 mg QHS [facility] Administration Pramipexole Dihydrochloride 0.5 mg 09/18/24 17:00 09/18/24 16:52 Pramipexole Di-Hcl 0.5 Mg Tablet PO 0.5 mg DINNER [facility] Administration Rifampin 300 mg 09/18/24 22:00 09/19/24 [...] Due MC 09/20/24 09:30 DAILY [facility] Problem List Infection of prosthetic shoulder joint [...] Note: 09/19/24 09/19/24 1504 <Electronically signed by Renee Zarate> Renee Zarate Cosigner Signature (if applicable): CC: ~ Signed ADDENDUM by eRnee Zarate on 09/20/24 at 1051 Addendum ADDING COSIGNER 09/20/24 1051 <Electronically signed by Renee Zarate > Date _ Renee Zarate 09/20/24 1342 <Electronically signed by Rodrigo Chi> Cosigner Signature (if applicable): Date cc: ~* Signed ADDENDUM by Dr. Rodrigo Sanches MD on 09/20/24 at 1342 Addendum Agree with recommendations. 09/20/24 1342 <Electronically signed by Rodrigo Chi> Date _ Rodrigo Sanches MD Cosigner Signature (if applicable): Date cc: ~* Signed [facility] Work Phone: 1(529) 915-856503-21-2025 Progress note Author Sixto Lupe [facility] Note Date/Time September 20, 2024 1:3 8pm [facility] Medical Records Department [address] [place] [address] Progress Note - Infect Disease 09/20/24 1336 MR#: [id number] Acct: [id number] Name: OSCAR WOO Rep #:[id number] : 1950 74 From: Sixto calhoun MD PCP: Dr. Kamra Grimes MD Status:ADM IN Location: [place] [address] Physical Exam Narrative Feeling better, shoulder improving, [...] course suppressive po abx. Will follow 09/20/24 5230 <Electronically signed by Sixto Andrade MD> Cosigner Signature (if applicable): CC: ~ Signed [facility] Work Phone: 1(379) 859-288603-21-2025 Consult note Author Jonh Khalil [facility] Note Date/Time September 20, 2024 1:2 6pm [facility] Medical Records Department [address] [place] [address] Pharmacokinetic/Renal -Consult 09/20/24 0902 MR#: [id number] Acct: [id number] Name: OSCAR WOO Rep #:[id number] : 1950 74 From: Jonh kurtz PCP: Dr. Kamar Grimes MD Status:ADM IN Location: [place] [address] Consult Antibiotic Management Pharmacy has been consulted [...] Date Rodrigo Sanches MD CC: ~ Signed [facility] Work Phone: 1(397) 890-403003-21-2025 Progress note [facility] Medical Records Department [address] [place] [address] Progress Note - Pharmacy 09/19/24 1427 MR#: [id number] Acct: [id number] Name: OSCAR WOO Rep #:[id number] : 1950 74 From: Renee Zarate PCP: Dr. Kamar Grimes MD Status:ADM IN Location: [place] [address]-1 TCU RX Drug Regimen Review Subjective/Objective Subjective/Objective Subjective: 74 YOF admitted to TCU on 09/18/24 s/p hospitalization to [facility] for a left shoulder joint infection. [...] Due MC 09/20/24 09:30 DAILY [facility] Problem List Infection of prosthetic shoulder joint [...] Date Date of Note: 09/19/24 09/19/24 1504 Renee Zarate Cosigner Signature (if applicable): CC: ~ Signed ADDENDUM by Renee Zarate on 09/20/24 at 1051 Addendum ADDING COSIGNER 09/20/24 1051 > Date _ Renee Zarate 09/20/24 1342 D> Cosigner Signature (if applicable): Date cc: ~* Signed ADDENDUM by Dr. Rodrigo Sanches MD on 09/20/24 at 1342 Addendum Agree with recommendations. 09/20/24 1342 D> Date _ Rodrigo Sanches MD Cosigner Signature (if applicable): Date cc: ~* Signed [facility]03-21-2025 Progress note [facility] Medical Records Department [address] [facility] [place] [address] Progress Note - Infect Disease 09/20/24 1336 MR#: [id number] Acct: [id number] Name: OSCAR WOO Rep #:[id number] : 1950 74 From: Sixto calhoun MD PCP: Dr. Kamar Grimes MD Status:ADM IN Location: [facility] TCU06-1 Physical Exam Narrative Feeling better, shoulder improving, [...] Cosigner Signature (if applicable): CC: ~ Signed [facility]03-21-2025 Consult note [facility] Medical Records Department [address] [place] [address] Pharmacokinetic/Renal -Consult 09/20/24 0902 MR#: [id number] Acct: [id number] Name: OSCAR WOO Rep #:[id number] : 1950 74 From: Jonh kurtz PCP: Dr. Kamar Grimes MD Status:ADM IN Location: [place] [address] Consult Antibiotic Management Pharmacy has been consulted [...] result of 10.7 so will increase dose [id number] IV q24h. Will check another trough before the 3rd dose. Pharmacy Service will continue to monitor and adjust dosing as required. Follow-Up Labs Follow-Up Labs: Trough: Vancomycin Date/Time Labs Ordered Labs to be done on [date and time ordered]: 09/22/24 08:30 09/20/24 0905 erg> Date _ Jonh Khalil 09/20/24 1326 D> Cosigner Signature (if applicable): Date Rodrigo Sanches MD CC: ~ [facility]03-20-2025 Progress note Author Sixto Andrade [facility] Note Date/Time September 19, 2024 7:5 9am [facility] Medical Records Department [address] [place] [address] Progress Note - Infect Disease 09/19/24 0757 MR#: [id number] Acct: [id number] Name: OSCAR WOO Rep #:[id number] : 1950 74 From: Sixto calhoun MD PCP: Dr. Kamar Grimes MD Status:ADM IN Location: [facility] TCU06-1 ID ID: Route of nutrition/ use of [...] Cosigner Signature (if applicable): CC: ~ Signed [facility] Work Phone: 1(513) 800-560503-20-2025 Progress note [facility] Medical Records Department [address] [place] [address] Progress Note - Infect Disease 09/19/24756 MR#: [id number] Acct: [id number] Name: OSCAR WOO Rep #:[id number] : 1950 74 From: Sixto calhoun MD PCP: Dr. Kamar Grimes MD Status:ADM IN Location: [facility] TCU06-1 ID ID: Route of nutrition/ use of [...] at U, reviewed labs and chart. 09/19/24758 Cosigner Signature (if applicable): CC: ~ Signed [facility]03-19-2025 History and physical note Author Rodrigo Sanches [facility] Note Date/Time September 18, 2024 8:5 7pm [facility] Medical Records Department [address] [place] [address] History & Physical Exam 09/18/242035 MR#: [id number] Acct: [id number] Name: OSCAR WOO Rep #:[id number] : 1950 74 From: Rodrigo Sanches MD PCP: Dr. Kamar Grimes MD Status:ADM IN Location: [facility] [place] [address] HPI - General General Date of Admission: [...] intravenous antibiotics, prior to discharge home alone. 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 * Dry eyes [...] MD> Cosigner Signature (if applicable): CC: Dr. Kamar Grimes MD; Dr. Rodrigo Sanches MD~ Signed [facility] Work Phone: 1(135) 837-643603-19-2025 History and physical note [facility] Medical Records Department [address] [place] [address] History & Physical Exam 09/18/242035 MR#: [id number] Acct: [id number] Name: OSCAR WOO Rep #:[id number] : 1950 74 From: Rodrigo Sanches MD PCP: Dr. Kamar Grimes MD Status:ADM IN Location: [place] [address] HPI - General General Date of Admission: [...] intravenous antibiotics, prior to discharge home alone. [facility] Medical History MRSA (methicillin resistant staph aureus) [...] oral 80 mg (1.2 mL) PO TID IN N Gas #0 mL 09/17/24 Unknown Rx [...] 30mg daily, Mirtazapine 15mg qhs, stable chronic mcc use, GDR not recommended. * Dry eyes [...] 09/18/242056 Cosigner Signature (if applicable): CC: Dr. Kamar Grimes MD; Dr. Rodrigo Sanches MD~ Signed [facility]03-19-2025 [facility]03-19-2025 [facility]03-19-2025 Consult note [facility] Medical Records Department [address] [place] [address] Counseling Note - Pharmacy 09/18/24 1009 MR#: [id number] Acct: [id number] Name: OSCAR WOO Rep #:[id number] : 1950 74 From: Ashley Sue PCP: Dr. Kamar Grimes MD Status:ADM IN Location: [address] Med Reconciliation Pharmacy Service has performed discharge [...] Date _ Ashley Herndon Signature (if applicable): Date CC: ~ Signed [facility]03-19-2025 Consult note Author Ashley Sue [facility] Note Date/Time September 18, 2024 12: 30pm [facility] Medical Records Department [address] [place] [address] Counseling Note - Pharmacy 09/18/24 1009 MR#: [id number] Acct: [id number] Name: OSCAR WOO Rep #:[id number] : 1950 74 From: Ashley Sue PCP: Dr. Kamar Grimes MD Status:ADM IN [place] [facility] Med Reconciliation Pharmacy Service has performed discharge [...] Signature (if applicable): Date CC: ~ Signed [facility] Work Phone: 1(507) 203-742603-19-2025 Progress note Author Jamie Jiang [facility] Note Date/Time September 18, 2024 9:1 1am [facility] Medical Records Department [address] [place] [address] Progress Note - Hospitalist 09/18/24 0908 MR#: [id number] Acct: [id number] Name: OSCAR WOO Rep #:[id number] : 1950 74 From: Jamie Jiang DO PCP: Dr. Kamar Grimes MD Status:ADM IN Location: [facility] GT150-9 Reason for Visit Reason for Visit: Diagnoses [...] 50 minutes Charges/Coding Visit Charges Inpatient E&M: 96301 Subs Hosp L3 09/18/24 0911 <Electronically signed by Jamie Jiang DO> Cosigner Signature (if applicable): CC: ~ Signed [facility] [facility]: 1(811) 394-420903-19-2025 Progress note Author Zhanna Ivy [facility] Note Date/Time September 18, 2024 7:5 5am [facility] Medical Records Department [address] [place] [address] Progress Note - Orthopedic 09/18/24 0748 MR#: [id number] Acct: [id number] Name: OSCAR WOO Rep #:[id number] : 1950 74 From: Zhanna CASTILLO PCP: Dr. Kamar Grimes MD Status:ADM IN Location: MS3 PG335-9 Subjective Subjective Patient was lying comfortably in bed. Patient was very excited that she got accepted to [facility] and patient was eager to get [...] will be going to the TCU at [facility]. Patient received acceptance yesterday but a [...] other internal joint prosthesis, initial encounter: 09/18/24 3065 <Electronically signed by Zhanna CASTILLO> Yanick Signature (if applicable): CC: ~ Signed [facility] Work Phone: 1(893) 152-141603-19-2025 Consult note Author Tete Kaminski [facility] Note Date/Time September 18, 2024 7:[facility] [address] [place] [address] Pharmacokinetic/Renal -Consult 09/18/24 0744 MR#: [id number] Acct: [id number] Name: OSCAR WOO Rep #:[id number] : 1950 74 From: Tete Loving PCP: Dr. Kamar Grimes MD Status:ADM IN Location: [place] 183203-1 Consult Antibiotic Management Pharmacy has been consulted [...] and time ordered]: 09/20/24 @ 0700 09/18/24 3356 <Electronically signed by Tete Kaminski> Date _ Tete Kaminski Cosigner Signature (if applicable): Date CC: ~ Signed [facility] Work Phone: 1(360) 238-135703-19-2025 Progress note [facility] Medical Records Department [facility] [place] [address] Progress Note - Hospitalist 09/18/24 09 MR#: [id number] Acct: [id number] Name: OSCAR WOO Rep #:[id number] : 1950 74 From: Jamie Jiang DO PCP: Dr. Kamar Grimes MD Status:ADM IN Location: [place] [address] Reason for Visit Reason for Visit: Diagnoses [...] [facility] blood pressure medicines may [...] 50 minutes Charges/Coding Visit Charges Inpatient E&M: 83667 [facility] Hosp L3 09/18/24 0911 Cosigner Signature (if applicable): CC: ~ Signed [facility]03-19-2025 Progress note [facility] Medical Records Department [address] [place] [address] Progress Note - Orthopedic 09/18/24 0748 MR#: [id number] Acct: [id number] Name: OSCAR WOO Rep #:[id number] : 1950 74 From: Zhanna CASTILLO PCP: Dr. Kamar Grimes MD Status:ADM IN Location: MS3 CP549-7 Subjective Subjective Patient was lying comfortably in bed. Patient was very excited that she got accepted to [facility] and patient was eager to get [...] will be going to the TCU at [facility]. Patient received acceptance yesterday but a bed was not available until today 09/18/2024. Appreciate recommendations from medicine and case management for safe discharge planning. Patient will follow-up per postoperative instructions. Reverse total shoulder protocol was reviewed with patient today. Patient has a 2-week follow-up at our office. Patient will begin outpatient physical therapy following her 2-week visit at [facility]. Patient was encouraged to call with any questions, concerns, new problems. (2) Infection and inflammatory reaction due to other internal joint prosthesis, initial encounter: 09/18/24 2502 Cosigner Signature (if applicable): CC: ~ Signed [facility]03-19-2025 Consult note [facility] Medical Records Department [address] [place] [address] Pharmacokinetic/Renal -Consult 09/18/24 0744 MR#: [id number] Acct: [id number] Name: OSCAR WOO Rep #:[id number] : 1950 74 From: Tete Loving PCP: Dr. Kamar Grimes MD Status:ADM IN Location: CT3 VH923-9 Consult Antibiotic Management Pharmacy has been consulted [...] and time ordered]: 09/20/24 @ 0700 09/18/24 0747 Long Date _ Tete Kaminski Cosign Signature (if applicable): Date CC: ~ Signed [facility]03-18-2025 Discharge summary Author Jamie Jiang [facility] Note Date/Time September 17, 2024 5:2 7pm [facility] Medical Records Department [address] [place] [address] Transfer to [facility] MR#: [id number] Acct: [id number] Name: OSCAR WOO Rep #:[id number] : 1950 74 From: Jamie Jiang DO PCP: Dr. Kamar Grimes MD Status:ADM IN Certification of patient admission REQUIRED AT TIME OF ADMISSION. I CERTIFY THAT POST-HOSPITAL ECF SERVICES ARE REQUIRED TO BE GIVEN ON AN IN-PATIENT BASIS BECAUSE OF THE ABOVE NAMED PATIENT'S NEED FOR FPC CARE ON A CONTINUING BASIS FOR THE [...] Attending Provider: Fahad Cavanaugh Primary Care Provider: Kamar Grimes Consulting Providers: Emili Lee; Jamie Jiang; [...] cbc, vanc trough, and esr. Fax to [phone]. Routine picc care per protocol. rifampin 300 [...] mg PO DAILY Referrals / Follow Up: Kamar Grimes MD [Primary Care Provider] - Sixto Andrade MD [Med Staff - Active Staff] - See Referral Note (In 2 weeks- call for an appointment) Fahad Cavanaugh MD [Med Staff - Active Staff] - See Referral Note (In 2 weeks, call for an appointment) Disposition Disposition (needs filled in before D/C Order can be placed[facility] 09/17/247 <Electronically signed by Jamie Jiang DO> Cosigner Signature (if applicable): CC: Dr. Kamar Grimes MD; Dr. Jamie Jiang DO; Dr. Emili Lee MD; Dr. Sixto Andrade MD ~ [facility] Work Phone: 1([phone]) 878-374903-18-2025 Progress note Author Jamie Jiang [facility] Note Date/Time September 17, 2024 5:1 3pm [facility] Medical Records Department [address] [place] [address] Progress Note - Hospitalist 09/17/24 1709 MR#: [id number] Acct: [id number] Name: OSCAR WOO Rep #:[id number] : 1950 74 From: Jamie Jiang DO PCP: Dr. Kamar Grimes MD Status:ADM IN Location: CT3 ST659-0 Reason for Visit Reason for Visit: Diagnoses [...] a bed available for her in TCU [facility] care tomorrow. Patient had some gas [...] 35 minutes Charges/Coding Visit Charges Inpatient E&M: 94099 Subs Hosp L2 09/17/24 1713 <Electronically signed by Jamie Jiang DO> Cosigner Signature (if applicable): CC: ~ Signed [facility] Work Phone: 1(435) 157-959603-18-2025 Discharge summary [facility] Medical Records Department [address] [place] [address] Transfer to [facility] MR#: [id number] Acct: [id number] Name: OSCAR WOO Rep #:[id number] : 1950 74 From: Jamie Jiang DO PCP: Dr. Kamar Grimes MD Status:ADM IN Certification of patient admission REQUIRED AT TIME OF ADMISSION. I CERTIFY THAT POST-HOSPITAL ECF SERVICES ARE REQUIRED TO BE GIVEN ON AN IN-PATIENT BASIS BECAUSE OF THE ABOVE NAMED PATIENT'S NEED FOR FPC CARE ON A CONTINUING BASIS FOR THE CONDITION(S) FOR WHICH HE/SHE WAS RECEIVINGIN-PATIENT HOSPITAL SERVICES PRIOR TO HIS/HER TRANSFER TO THE ECF. 09/17/24 1727 Diet Diet Order/Speech Therapy: 09/13/24 [...] Attending Provider: Fahad Cavanaugh Primary Care Provider: Kamar Grimes Consulting Providers: Emili Lee; Jamie Jiang; [...] cbc, vanc trough, and esr. Fax to [phone]. Routine picc care per protocol. rifampin 300 [...] mg PO DAILY Referrals / Follow Up: Kamar Grimes MD [Primary Care Provider] - Sixto Andrade MD [Med Staff - Active Staff] - See Referral Note (In 2 weeks- call for an appointment) Fahad Cavanaugh MD [Med Staff - Active Staff] - See Referral Note (In 2 weeks, call for an appointment) Disposition Disposition (needs filled in before D/C Order can be placed): [facility] 09/17/24 1727 Cosigner Signature (if applicable): CC: Dr. Kamar Grimes MD; Dr. Jamie Jiang DO; Dr. Emili Lee MD; Dr. Sixto Andrade MD ~ [facility]03-18-2025 Progress note [facility] Medical Records Department [address] [place] [address] Progress Note - Hospitalist 09/17/24 1709 MR#: [id number] Acct: [id number] Name: OSCAR WOO Rep #:[id number] : 1950 74 From: Jamie Jiang DO PCP: Dr. Kamar Grimes MD Status:ADM IN Location: [place] [address] Reason for Visit Reason for Visit: Diagnoses [...] [facility] Patient had some gas [...] 35 minutes Charges/Coding Visit Charges Inpatient E&M: 25295 Subs Hosp L2 09/17/24 1713 Cosigner Signature (if applicable): CC: ~ Signed [facility]03-18-2025 Progress note Author Zhanna Ivy [facility] Note Date/Time September 17, 2024 1:0 2pm [facility] Medical Records Department [address] [place] [address] Progress Note - Orthopedic 09/17/24 1242 MR#: [id number] Acct: [id number] Name: OSCAR WOO Rep #:[id number] : 1950 74 From: Zhanna CASTILLO PCP: Dr. Kamar Grimes MD Status:ADM IN [place] [facility] CI461-8 Subjective Subjective Patient appears to be comfortable [...] 09/17/24 1300 <Electronically signed by Zhanna CASTILLO> Natalieer Signature (if applicable): CC: ~ Signed ADDENDUM by ANNA Hinson on 09/17/24 at 1302 Addendum C. difficile was sent by Dr. Andrade. 09/17/24 1301<Electronically signed by Zhanna CASTILLO> Yanick Signature (if applicable): cc: ~* Signed [facility] Work Phone: 1(849) 663-918603-18-2025 Progress note [facility] Medical Records Department [address] [place] [address] Progress Note - Orthopedic 09/17/24 1242 MR#: [id number] Acct: [id number] Name: OSCAR WOO Rep #:[id number] : 1950 74 From: Zhanna CASTILLO PCP: Dr. Kamar Grimes MD Status:ADM IN Location: MS3 SG408-9 Subjective Subjective Patient appears to be comfortable [...] Cosigner Signature (if applicable): cc: ~* Signed [facility]03-18-2025 Progress note Author Sixto Andrade [facility] Note Date/Time September 17, 2024 10: 04am [facility] Medical Records Department [address] [place] [address] Progress Note - Infect Disease 09/17/24 1003 MR#: [id number] Acct: [id number] Name: OSCAR WOO Rep #:[id number] : 1950 74 From: Sixto calhoun MD PCP: Dr. Kamar Grimes MD Status:ADM IN Location: MS3 XE308-0 Physical Exam Narrative Feeling ok. One episode [...] diarrhea chronically, cdiff sent. Will follow, d/w pillowcase turner 09/17/24 1004 <Electronically signed by Sixto Andrade MD> Cosigner Signature (if applicable): CC: ~ Signed [facility] Work Phone: 1([phone]) 829-331603-18-2025 Progress note [facility] Medical Records Department [address] [place] [address] Progress Note - Infect Disease 09/17/24 1003 MR#: [id number] Acct: [id number] Name: OSCAR WOO Rep #:[id number] : 1950 74 From: Sixto calhoun MD PCP: Dr. Kamar Grimes MD Status:ADM IN Location: MS3 WK062-3 Physical Exam Narrative Feeling ok. One episode [...] diarrhea chronically, cdiff sent. Will follow, d/w pillowcase turner 09/17/24 1004 Cosigner Signature (if applicable): CC: ~ Signed [facility]03-17-2025 Progress note Author Claire Mayorga [facility] Note Date/Time September 16, 2024 9:5 7pm [facility] Medical Records Department [address] [place] [address] Progress Note - Hospitalist 09/16/242156 MR#: [id number] Acct: [id number] Name: OSCAR WOO Rep #:[id number] : 1950 74 From: Claire Mayorga MD PCP: Dr. Kamar Grimes MD Status:ADM IN Location: [place] [address] Hospitalist Note Patient with onset diarrhea, several episodes per staff. On abx therapy for several days with ID following. Suspect likely abx related but to be cautious will obtain cdiff and if negative will have loperamide PRN. 09/16/242156 <Electronically signed by Claire Mayorga MD> Cosigner Signature (if applicable): CC: ~ Signed [facility] Work Phone: 1(591) 967-169703-17-2025 Progress note [facility] Medical Records Department [address] [place] [address] Progress Note - Hospitalist 09/16/242156 MR#: [id number] Acct: [id number] Name: OSCAR WOO Rep #:[id number] : 1950 74 From: Claire Mayorga MD PCP: Dr. Kamar Grimes MD Status:ADM IN Location: [place] [address] Hospitalist Note Patient with onset diarrhea, several episodes per staff. On abx therapy for several days with ID following. Suspect likely abx related but to be cautious will obtain cdiff and if negative will have loperamide PRN. 09/16/242156 Cosigner Signature (if applicable): CC: ~ Signed [facility]03-17-2025 Progress note Author Jamie [facility] Note Date/Time September 16, 2024 4:[address] [place] [address] System Medical Records Department [address] [facility] [place] [address] Progress Note - Hospitalist 09/16/24 160 MR#: [id number] Acct: [id number] Name: OSCAR WOO Rep #:[id number] : 1950 74 From: Jamie Jiang DO PCP: Dr. Kamar Grimes MD Status:ADM IN Location: [place] [address] Reason for Visit Reason for Visit: Diagnoses [...] to go to a rehab facility or halfway facility. Objective Data Objective Data Vital Signs: [...] Total 3834.17 / 3834.17 1411.25 / 1411.25 2099 / 2099 Balance 3834.17 / 3834.17 141. / 141.2099 Lab / Micro Data 09/16/24 06:00 09/16/24 06:00 Labs: Laboratory Results - last 24 hr 09/16/24 06:00: WBC 9.2, RBC 3.69 L, Hgb 11.0 L, Hct 35.3 L, MCV 95.7, MCH 29.8,MCHC 31.2 L, RDW Std Deviation 50.0 H, RDW Coeff of Terry 14.3, Plt Count 261, MPV9.4, Immature Gran % (Auto) 0.900, Neut % (Auto) 76.9 H, Lymph % (Auto) 11.6 L, Lyon % (Auto) 7.0, Eos % (Auto) 3.2, [...] 35 minutes Charges/Coding Visit Charges Inpatient E&M: 54983 Subs Hosp L2 09/16/24 1611 <Electronically signed by Jamie Jiang DO> Cosigner Signature (if applicable): CC: ~ Signed [facility] Work Phone: 1([phone]) 803-113403-17-2025 Consult note Author Sixto Andrade [facility] Note Date/Time September 16, 2024 2:5 1pm [facility] Medical Records Department [address] [place] [address] Consultation - Infectious Dx 09/16/24 1444 MR#: [id number] Acct: [id number] Name: OSCAR WOO Rep #:[id number] : 1950 74 From: Sixto calhoun MD PCP: Dr. Kamar Grimes MD Status:ADM IN [place] [facility] ZT064-4 Assessment & Plan Assessment/Plan (1) Infection and [...] rx, d/w Dr. Cavanaugh on 09/13/24, d/w pillowcase turner this AM HPI Consult Data Date of [...] performed and neg except as noted above. [facility] Medical History MRSA (methicillin resistant staph aureus) [...] 76.9 H, Lymph % (Auto) 11.6 L, Lyon % (Auto) 7.0, Eos % (Auto) 3.2, [...] Preliminary No growth in 48 hours. 09/16/24 1452 <Electronically signed by Sixto Andrade MD> Cosigner Signature (if applicable): CC: Dr. Kamar Grimes MD; Dr. Fahad Cavanaugh MD~ Signed [facility] Work Phone: 1(989) 650-715703-17-2025 Progress note [facility] Medical Records Department [address] [place] [address] Progress Note - Hospitalist 09/16/24 1603 MR#: [id number] Acct: [id number] Name: OSCAR WOO Rep #:[id number] : 1950 74 From: Jamie Jiang DO PCP: Dr. Kamar Grimes MD Status:ADM IN Location: CT3 DZ428-7 Reason for Visit Reason for Visit: Diagnoses [...] to go to a rehab facility or halfway facility. Objective Data Objective Data Vital Signs: [...] 76.9 H, Lymph % (Auto) 11.6 L, Lyon % (Auto) 7.0, Eos % (Auto) 3.2, [...] 35 minutes Charges/Coding Visit Charges Inpatient E&M: 14728 Subs Hosp L2 09/16/24 1611 Cosigner Signature (if applicable): CC: ~ Signed [facility]03-17-2025 Progress note Author Fahad Cavanaugh [facility] Note Date/Time September 16, 2024 2:0 5pm [facility] Medical Records Department [address] [place] [address] Progress Note - Orthopedic 09/16/24 1357 MR#: [id number] Acct: [id number] Name: OSCAR WOO Rep #:[id number] : 1950 74 From: Fahad Chi PCP: Dr. Kamar Grimes MD Status:ADM IN [place] [facility] MM779-9 Subjective Subjective Patient doing well. Denies any chest pain or calf pain. No new shortness of breath. Remains on 2 L of oxygen. Infectious ease was able to the patient thismorning and placed patient on vancomycin IV for 6 weeks. PICC line is in place. Discharge planning has commenced. Patient will likely require halfway upon discharge to help administer IV antibiotics [...] 23:59 23:59 Intake Total 3834.17 / 3834.17 1411. / 141.25 2099 Balance 3834.17 / 3834.17 1411. / 14107.27 Lab / Micro Data Attestation: I reviewed [...] 76.9 H, Lymph % (Auto) 11.6 L, Lyon % (Auto) 7.0, Eos % (Auto) 3.2, [...] attempting to look for placement in a halfway facility. Once we have an accepting facilitywill need to obtain pre-CERT. Patient demonstrates an understanding. [facility] Office: 09/16/24 5435 <Electronically signed by Fahad Cavanaugh MD> Cosigner Signature (if applicable): CC: ~ Signed [facility] Work Phone: 1(447) 142-562303-17-2025 Consult note [facility] Medical Records Department [address] [place] [address] Consultation - Infectious Dx 09/16/24 1444 MR#: [id number] Acct: [id number] Name: OSCAR WOO Rep #:[id number] : 1950 74 From: Sixto calhoun MD PCP: Dr. Kamar Grimes MD Status:ADM IN Location[place] [facility] PK860-5 Assessment & Plan Assessment/Plan (1) Infection and [...] rx, d/w Dr. Cavanaugh on 09/13/24, d/w pillowcase turner this AM HPI Consult Data Date of [...] performed and neg except as noted above. [facility] Medical History MRSA (methicillin resistant staph aureus) [...] 76.9 H, Lymph % (Auto) 11.6 L, Lyon % (Auto) 7.0, Eos % (Auto) 3.2, [...] 1451 Cosigner Signature (if applicable): CC: Dr. Kamar Grimes MD; Dr. Fahad Cavanaugh MD~ Signed [facility]03-17-2025 Progress note [facility] Medical Records Department [address] [place] [address] Progress Note - Orthopedic 09/16/24 1357 MR#: [id number] Acct: [id number] Name: OSCAR WOO Rep #:[id number] : 1950 74 From: Fahad Chi PCP: Dr. Kamar Grimes MD Status:ADM IN [facility] Subjective Subjective Patient doing well. Denies any chest pain or calf pain. No new shortness of breath. Remains on 2 L of oxygen. Infectious ease was able to the patient thismorning and placed patient on vancomycin IV for 6 weeks. PICC line is in place. Discharge planning has commenced. Patient will likely require halfway upon discharge to help administer IV antibiotics [...] Total 3834.17 / 3834.17 1411.25 / 1411.25 2099 Balance 3834.17 / 3834.17 1411. / 141.25 2099 Lab / Micro Data Attestation: I [...] 76.9 H, Lymph % (Auto) 11.6 L, Lyon % (Auto) 7.0, Eos % (Auto) 3.2, [...] attempting to look for placement in a halfway facility. Once we have an accepting facilitywill need to obtain pre-CERT. Patient demonstrates an understanding. [facility] Office: 09/16/24 1401 Cosigner Signature (if applicable): CC: ~ Signed [facility]03-17-2025 Consult note Author Tino Law [facility] Note Date/Time September 16, 2024 7:0 3am [facility] Medical Records Department [address] [place] [address] Pharmacokinetic/Renal -Consult 09/15/24 1424 MR#: [id number] Acct: [id number] Name: OSCAR WOO Rep #:[id number] : 1950 74 From: Tino Law PCP: Dr. Kamar Grimes MD Status:ADM IN Location: [place] [address] Consult Antibiotic Management Pharmacy has been consulted [...] Date Fahad Cavanaugh MD CC: ~ Signed [facility] Work Phone: 1(379) 402-848403-17-2025 Consult note Author Tino Law [facility] Note Date/Time September 16, 2024 7:0 3am [facility] Medical Records Department [address] [place] [address] Pharmacokinetic/Renal -Consult 09/16/24 0658 MR#: [id number] Acct: [id number] Name: OSCAR WOO Rep #:[id number] : 1950 74 From: Tino Law PCP: Dr. Kamar Grimes MD Status:ADM IN Location: [place] 183203-1 Consult Antibiotic Management Pharmacy has been consulted [...] Date Fahad Cavanaugh MD CC: ~ Signed [facility] Work Phone: 1(942) 324-505803-17-2025 Consult note [facility] Medical Records Department [address] [place] [address] Pharmacokinetic/Renal -Consult 09/15/24 1424 MR#: [id number] Acct: [id number] Name: OSCAR WOO Rep #:[id number] : 1950 74 From: Tino Law PCP: Dr. Kamar Grimes MD Status:ADM IN Y Location: [place] [address] Consult Antibiotic Management Pharmacy has been consulted [...] r> Date _ Tino Law 09/16/24 0703 MD> Rebelignjennifer Signature (if applicable): Date Fahad Cavanaugh MD CC: ~ Signed [facility]03-17-2025 Consult note [facility] Medical Records Department [address] [place] [address] Pharmacokinetic/Renal -Consult 09/16/24 0658 MR#: [id number] Acct: [id number] Name: OSCAR WOO Rep #:[id number] : 1950 74 From: Tino Law PCP: Dr. Kamar Grimes MD Status:ADM IN Y Location: [facility]3 AW606-1 Consult Antibiotic Management Pharmacy has been consulted [...] r> Date _ Tino Law 09/16/24 0703 MD> Yanick Signature (if applicable): Date Fahad Cavanaugh MD CC: ~ Signed [facility]03-16-2025 Progress note Author Emili Lee [facility] Note Date/Time September 15, 2024 11: 30am [facility] Medical Records Department [address] [place] [address] Progress Note - Hospitalist 09/15/24 0804 MR#: [id number] Acct: [id number] Name: OSCAR WOO Rep #:[id number] : 1950 74 From: Emili Lee MD PCP: Dr. Kamar Grimes MD Status:ADM IN [facility] Reason for Visit Reason for Visit: Diagnoses [...] 36 Minutes Charges/Coding Visit Charges Inpatient E&M: 45287 Subs Hosp L2 09/15/24 1130 <Electronically signed by Emili Lee MD> Cosigner Signature (if applicable): CC: ~ Signed [facility] Work Phone: 1(910) 140-772603-16-2025 Progress note [facility] Medical Records Department [address] [place] [address] Progress Note - Hospitalist 09/15/24 0804 MR#: [id number] Acct: [id number] Name: OSCAR WOO [place]h Rep #:[id number] : 1950 74 From: Emili Lee MD PCP: Dr. Kamar Grimes MD Status:ADM IN Location: MS3 GQ365-9 Reason for Visit Reason for Visit: Diagnoses [...] 36 Minutes Charges/Coding Visit Charges Inpatient E&M: 49041 Subs Hosp L2 09/15/24 1130 Cosigner Signature (if applicable): CC: ~ Signed [facility]03-16-2025 Progress note Author Fahad Cavanaugh [facility] Note Date/Time September 15, 2024 8:1 9am [facility] Medical Records Department [address] [place] [address] Progress Note - Orthopedic 09/15/24 08 MR#: [id number] Acct: [id number] Name: OSCAR WOO Rep #:[id number] : 1950 74 From: Fahad Chi PCP: Dr. Kamar Grimes MD Status:ADM IN [facility] Subjective Subjective Patient doing well overall. No [...] PICC line and home antibiotic regimen. [facility] Office: 09/15/24818 <Electronically signed by Fahad Cavanaugh MD> Cosigner Signature (if applicable): CC: ~ Signed [facility] Work Phone: 1(295) 945-193903-16-2025 Radiology Diagnostic study note [facility] Imaging Services [address] [facility] [place], [place] [id number] Chest PA and Lateral MR#: [id number] Acct: [id number] Name: OSCAR WOO Rep #: [id number] : 1950 F 74 From: Abdulkadir Goodman DO PCP: Dr. Kamar Grimes MD Status: ADM IN Study:Chest PA and Lateral Date of Exam: 09/15/24 Exam# [id number] Ordering Dr: Wenceslao Lee MD PROCEDURE: Chest [...] lung bases. Reading Location: [facility] CC: Dr. Kamar Grimes MD; Dr. Emili Lee MD ~ Quality Measurement Specialist: Signed [facility]03-16-2025 Progress note [facility] Medical Records Department [address] [place] [address] Progress Note - Orthopedic 09/15/24 0811 MR#: [id number] Acct: [id number] Name: OSCAR WOO Rep #:[id number] : 1950 74 From: Fahad Chi PCP: Dr. Kamar Grimes MD Status:ADM IN Location: [place] [address] Subjective Subjective Patient doing well overall. No [...] PICC line and home antibiotic regimen. 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 Kamar Grimes MD Status:ADM NATE Location: [place] [address] Reason for Visit Reason for Visit: Diagnoses [...] 09/13/24 17:00 IMPRESSION: See above Reading Location: [facility] Physical Exam Narrative General: Alert, oriented, no [...] 35 Minutes Charges/Coding Visit Charges Inpatient E&M: 81778 Subs Hosp L2 09/14/24 1234 <Electronically signed by Emili Lee MD> Cosigner Signature (if applicable): CC: ~ Signed [facility] Work Phone: 1(583) 976-368103-15-2025 Progress note [facility] Medical Records Department [address] [place] [address] Progress Note - Hospitalist 09/14/24 4910 MR#: [id number] Acct: [id number] Name: OSCAR WOO Rep #:[id number] : 1950 74 From: Emili Lee MD PCP: Dr. Kamar Grimes, MD Status:ADM NATE Location: MS3 [id number] Reason for Visit Reason for Visit: Diagnoses [...] 09/13/24 17:00 IMPRESSION: See above Reading Location: [facility] Physical Exam Narrative General: Alert, oriented, no [...] 35 Minutes Charges/Coding Visit Charges Inpatient E&M: 16043 Subs Hosp L2 09/14/24 1234 Cosigner Signature (if applicable): CC: ~ Signed [facility]03-15-2025 Progress note Author Fahad Cavanaugh [facility] Note Date/Time September 14, 2024 8:4 8am [facility] Medical Records Department [address] [place] [address] Progress Note - Orthopedic 09/14/24 0831 MR#: [id number] Acct: [id number] Name: OSCAR WOO Rep #:[id number] : 1950 74 From: Fahad Chi PCP: Dr. Kamar Grimes MD Status:ADM NATE Location: [place] [address] Subjective Subjective Patient is doing well overall. [...] 09/13/24 17:00 IMPRESSION: See above Reading Location: [facility] Physical Exam Narrative Left upper extremity: Dressing [...] PICC line and home antibiotic regimen. [facility] Office: 09/14/24 0848 <Electronically signed by Fahad Cavanaugh MD> Natalieer Signature (if applicable): CC: ~ Signed [facility] Work Phone: 1(948) 328-699803-15-2025 Progress note Author Abdirashid Carrasquillo [facility] Note Date/Time September 14, 2024 6:5 7am [facility] Medical Records Department [address] [place] [address] Progress Note - Hospitalist 09/13/241957 MR#: [id number] Acct: [id number] Name: OSCAR WOO Rep #:[id number] : 1950 74 From: Abdirashid Lloyd DO PCP: Dr. Kamar Grimes MD Status:ADM NATE Location: [place] [address] Reason for Visit Reason for Visit: Diagnoses [...] 09/13/24 17:00 IMPRESSION: See above Reading Location: [facility] Physical Exam Const alert, oriented x3 and [...] Cosigner Signature (if applicable): CC: ~ Signed [facility] Work Phone: 1(549) 857-388803-15-2025 Progress note [facility] Medical Records Department [address] [place] [address] Progress Note - Orthopedic 09/14/24 0831 MR#: [id number] Acct: [id number] Name: OSCAR WOO Rep #:[id number] : 1950 74 From: Fahad Chi PCP: Dr. Kamar Grimes MD Status:ADM NATE Location: [place] [address] Subjective Subjective Patient is doing well overall. She denies any chest pain or shortness of breath. She denies any dizziness with standing up. She denies any difficultiesgetting from bed to chair. She is sitting in thechair comfortably. She deniesany numbness and tingling in the extremity. She reports improvements in her pain. Jerilyn preoperatively blood pressures overnight have primarily been [...] 09/13/24 17:00 IMPRESSION: See above Reading Location: [facility] Physical Exam Narrative Left upper extremity: Dressing [...] [facility] Office: 09/14/24 0864 Cosigner Signature (if applicable): CC: ~ Signed [facility]03-15-2025 Procedure note [facility] Medical Records Department [address] [place] [address] Operative Report 09/13/24 1620 MR#: [id number] Acct: [id number] Name: OSCAR WOO Rep #:[id number] : 1950 74 From: Fahad Chi PCP: Dr. 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 Their intimate [...] Hose VTE Pharm Prophylaxis ordered?: Yes 09/14/24 1615 Cosigner Signature (if applicable): CC: Dr. Kmaar Grimes MD; Dr. Emili Lee MD; Dr. Fahad Cavanaugh MD~ Signed [facility]03-15-2025 Progress note [facility] Medical Records Department [address] [place] [address] Progress Note - Hospitalist 09/13/241957 MR#: [id number] Acct: [id number] Name: OSCAR WOO Rep #:[id number] : 1950 74 From: Abdirashid Lloyd DO PCP: Dr. Kamar Grimes MD Status:ADM NATE Location: [place] [address] Reason for Visit Reason for Visit: Diagnoses [...] 09/13/24 17:00 IMPRESSION: See above Reading Location: [facility] Physical Exam Const alert, oriented x3 and [...] Cosigner Signature (if applicable): CC: ~ Signed [facility]03-14-2025 Consult note Author Mercedes Patel [facility] Note Date/Time September 13, 2024 7:4 [facility] [address] [place] [address] Pharmacokinetic/Renal -Consult 09/13/241932 MR#: [id number] Acct: [id number] Name: SOCAR WOO Rep #:[id number] : 1950 74 From: Mercedes Patel PCP: Dr. Kamar Grimes MD Status:ADM NATE Y Location: [place] [address] Consult Antibiotic Management Pharmacy has been consulted [...] Signature (if applicable): Date CC: ~ Signed [facility] Work Phone: 1([phone]) [phone] Consult note Author Omar Walters [facility] Note Date/Time September 13, 2024 7:1 0pm [facility] Medical Records Department [address] [place] [address] Anesthesia Postop Eval II 09/13/241909 MR#: [id number] Acct: [id number] Name: OSCAR WOO Rep #:[id number] : 1950 74 From: Omar Walters MD PCP: Dr. Kamar Grimes MD Status:ADM NATE Y Race: C Location: [place] [address] Anesthesia Postop Eval I Sum Postop Eval Completion status Anesthesia document: Postop Eval 1 completed: Yes Anesthesia Postop Eval I Summary Anesthesia Postop Eval I Summary: Anesthesia Postop Eval I: Assessment Summary Airway patent Yes 09/13/24 17:12 HAND BENDER.TNES Spontaneous unlabored Yes 09/13/24 17:12 HAND BENDER.TNES respirations Mental status Calm 09/13/24 17:12 HAND BENDER.TNES nausea No 09/13/24 17:12 HAND BENDER.TNES Vomiting No 09/13/24 17:12 HAND BENDER.TNES Anesthesia Postop Eval I: Fluid Summary Crystalloid volume administer 2,000 09/13/24 17:12 HAND BENDER.TNES (ml) Colloids volume administered ( ml) Blood Product volume administered (ml) Total IV fluid infused 2,000 09/13/24 17:12 HAND BENDER.TNES Anesthesia Postop Eval I: Summary Notes Anesthesia Complication No 09/13/24 17:12 HAND BENDER.TNES Anesthesia Complication Comment: Post-operative progress note Anesthesia: Postop Eval II Evaluation Mental status: Awake Pain Level: 1 nausea: No Vomiting: No 09/13/241909 <Electronically signed by Omar Walters MD > Date _ Omar Walters MD Cosigner Signature: Date CC: ~ Signed [facility] Work Phone: 1(709) 612-647303-14-2025 Consult note [facility] Medical Records Department [address] [place] [address] Pharmacokinetic/Renal -Consult 09/13/241932 MR#: [id number] Acct: [id number] Name: OSCAR WOO Rep #:[id number] : 1950 74 From: Mercedes Patel PCP: Dr. Kamar Grimes MD Status:ADM NATE Y Location: [place] [address] Consult Antibiotic Management Pharmacy has been consulted [...] Signature (if applicable): Date CC: ~ Signed [facility]03-14-2025 Consult note Author Doug Urias [facility] Note Date/Time September 13, 2024 5:1 2pm [facility] Medical Records Department [address] [place] [address] Anesthesia Postop Eval I 09/13/24 1711 MR#: [id number] Acct: [id number] Name: OSCAR WOO Rep #:[id number] : 1950 74 From: Doug DEVINE PCP: Dr. Kamar Grimes MD Status:ADM NATE Y Race: C Location: [place] [address] Anesthesia: Postop Eval I Current Vital Signs [...] CRNA Cosigner Signature: Date CC: ~ Signed [facility] Work Phone: [phone]) [phone] Consult note [facility] Medical Records Department [address] [facility] [place] [address] Anesthesia Postop Eval II 09/13/24 1910 MR#: [id number] Acct: [id number] Name: OSCAR WOO Rep #:[id number] : 1950 74 From: Omar Walters MD PCP: Dr. Kamar Grimes MD Status:ADM NATE Y Race: C Location: [place] [address] Anesthesia Postop Eval I Sum Postop Eval Completion status Anesthesia document: Postop Eval 1 completed: Yes Anesthesia Postop Eval I Summary Anesthesia Postop Eval I Summary: Anesthesia Postop Eval I: Assessment Summary Airway patent Yes 09/13/24 17:12 HAND BENDER.TNES Spontaneous unlabored Yes 09/13/24 17:12 HAND BENDER.TNES respirations Mental status Calm 09/13/24 17:12 HAND BENDER.TNES nausea No 09/13/24 17:12 HAND BENDER.TNES Vomiting No 09/13/24 17:12 HAND BENDER.TNES Anesthesia Postop Eval I: Fluid Summary Crystalloid volume administer 2,000 09/13/24 17:12 HAND BENDER.TNES (ml) Colloids volume administered ( ml) Blood Product volume administered (ml) Total IV fluid infused 2,000 09/13/24 17:12 HAND BENDER.TNES Anesthesia Postop Eval I: Summary Notes Anesthesia Complication No 09/13/24 17:12 HAND BENDER.TNES Anesthesia Complication Comment: Post-operative progress note Anesthesia: Postop Eval II Evaluation Mental status: Awake Pain Level: 1 nausea: No Vomiting: No 09/13/24 1910 > Date _ Omar Luqueigner Signature: Date CC: ~ Signed [facility]03-14-2025 Radiology Diagnostic study note [facility] Imaging Services [address] [facility] [place] [address] Shoulder min 2 Views MR#: [id number] Acct: [id number] Name: OSCAR WOO Rep #: [id number] : 1950 F 74 From: Yen Donaldson MD PCP: Dr. Kamar Grimes MD Status: ADM NATE Study:Shoulder min 2 Views Date of Exam: 09/13/24 Exam# [id number] Ordering Dr: Celine Cavanaugh MD PROCEDURE: SHOULDER MIN 2 VIEWS REASON FOR EXAM: POST OP TECHNIQUE: Two views of the left shoulder COMPARISON: None. FINDINGS: Status post left shoulder arthroplasty. Hardware is intact. No acute fracture or dislocation. Mild degenerative changes of the acromioclavicular joint. RAD/Shoulder min 2 Views IMPRESSION: See above Reading Location: [facility] CC: Dr. Kamar Grimes MD; Dr. Fahad Cavanaugh MD ~ Quality Measurement Specialist: Signed [facility]03-14-2025 Consult note [facility] Medical Records Department [address] [place] [address] Anesthesia Postop Eval I 09/13/24 1711 MR#: [id number] Acct: [id number] Name: OSCAR WOO Rep #:[id number] : 1950 74 From: Doug DEVINE PCP: Dr. Kamar Grimes MD Status:ADM NATE Y Race: C Location: [place] [address] Anesthesia: Postop Eval I Current Vital Signs [...] Postop Eval 1 completed: Yes 09/13/24 1712 HAND BENDER> Date _ Doug [place] HAND BENDER Cosigner Signature: Date CC: ~ Signed [facility]03-14-2025 Consult note Author Omar gracy [facility] Note Date/Time September 13, 2024 12: 05pm [facility] Medical Records Department [address] [place] [address] Pre-Anesthesia Evaluation 09/13/24 1204 MR#: [id number] Acct: [id number] Name: OSCAR WOO Rep #:[id number] : 1950 74 From: Omar Walters MD PCP: Dr. 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 Hx Respiratory Tract Infection No 09/11/24 15:02 STOP Sleep Apnea STOP Sleep Apnea - 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: STOP Sleep Apnea - 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 Hx Hypertension Yes: CONTROLLED WITH MED 09/11/24 [...] Tobacco Use History Tobacco Use History - 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: Tobacco Use History - 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 Tobacco Use Smoking Status Former smoker 09/11/24 15:02 Hx Tobacco Use No 09/11/24 15:02 Years Smoking Packs Smoked per Day Smoking Cessation Date was No - quit smoking greater 09/11/24 15:02 within the last 15 years than 15 years ago Hx Smoking Cessation Date Hx Smoking Cessation No 09/11/24 15:02 Counseling Hematologic Medial History Hematologic Hx - 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: Hematologic Medical Hx - automatic developer Hx of Blood Transfusion Yes 09/11/24 15:02 [...] confused, unrespo /Reproduction History /Reproductive History - 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: /Reproductive Hx- 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 Hx Now No 09/11/24 15:02 Gestational Age [...] MD > Date _ Omar Walters [facility] Signature: Date CC: ~ Signed [facility] Work Phone: 1([phone]) 167-913203-14-2025 Consult note [facility] Medical Records Department [address] [place] [address] Pre-Anesthesia Evaluation 09/13/24 1204 MR#: [id number] Acct: [id number] Name: OSCAR WOO Rep #:[id number] : 1950 74 From: Omar Walters MD PCP: Dr. 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 Hx Respiratory Tract Infection No 09/11/24 15:02 STOP Sleep Apnea STOP Sleep Apnea - 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: STOP Sleep Apnea - 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 Hx Hypertension Yes: CONTROLLED WITH MED 09/11/24 [...] Tobacco Use History Tobacco Use History - 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: Tobacco Use History - 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 Tobacco Use Smoking Status Former smoker 09/11/24 15:02 Hx Tobacco Use No 09/11/24 15:02 Years Smoking Packs Smoked per Day Smoking Cessation Date was No - quit smoking greater 09/11/24 15:02 within the last 15 years than 15 years ago Hx Smoking Cessation Date Hx Smoking Cessation No 09/11/24 15:02 Counseling Hematologic Medial History Hematologic Hx - 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: Hematologic Medical Hx - automatic developer Hx of Blood Transfusion Yes 09/11/24 15:02 [...] confused, unrespo /Reproduction History /Reproductive History - 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: /Reproductive Hx- 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 Hx Now No 09/11/24 15:02 Gestational Age [...] MD Cosigner Signature: Date CC: ~ [facility] Madi Caballero [facility] Note Date/Time March 26, 2025 3:22pm [facility] Medical Records Department [address] [place] [address] Counseling Note - Pharmacy 03/26/25 1342 MR#: [id number] Acct: [id number] Name: OSCAR WOO Rep #:[id number] : 1950 75 From: Madi medel PCP: Dr. Kamar Grimes MD Status:ADM IN Y Location: [place] [address] Pharmacy [facility] has performed discharge medication counseling for this patient. The patient was counseled on the following discharge medications and changes in medications for homegoing review. - Losartan 50 mg tablet, Spironolactone 50 mg tablet The Reason for Use, instructions for use, and potential side effects were reviewed for all new medications. The patient's questions regarding all of their medications were answered. The patient was able to verbally demonstrate an understanding of their dischargemedications. Medications at Discharge Home Medications losartan 50 mg tablet 50 mg PO BID BP 09/19/14 Held on 03/26/25. Instructions: Restart on 03/31/2025 melatonin 5 mg tablet 10 mg PO QHS INSOMNIA 09/19/14 bupropion HCl 300 mg 24 hr tablet, extended release 150 mg PO DAILY DEPRESSION 06/11/20 gabapentin 600 mg tablet 600 mg PO QHS SLEEP 06/11/20 mirtazapine 15 mg tablet 15 mg PO QHS INSOMNIA 06/24/20 duloxetine 30 mg capsule,delayed release (Cymbalta) 30 mg PO DAILY DEPRESSION 09/11/24 pramipexole 0.5 mg tablet 0.5 mg PO DINNER RLS 09/11/24 aspirin 81 mg chewable tablet 81 mg PO BID blood thinner #0 tabs 09/17/24 loperamide 2 mg capsule 2 mg PO Q2H PRN PRN DIARRHEA #0 caps 09/17/24 albuterol sulfate 90 mcg/actuation aerosol inhaler 2 inh inhalation Q4H PRN shortness of breath or wheezing 03/18/25 carvedilol 3.125 mg tablet 3.125 mg PO BID 03/18/25 doxycycline hyclate 100 mg capsule 100 mg PO BID abx 03/18/25 indapamide 2.5 mg tablet 2.5 mg PO DAILY diuretic 03/18/25 naproxen sodium 220 mg tablet 440 mg PO DAILY PRN pain 03/18/25 potassium citrate 10 mEq (1,080 mg) tablet,extended release 10 meq PO DAILY 03/18/25 pramipexole 1 mg tablet 1 mg PO QHS restless leg 03/18/25 spironolactone 50 mg tablet 50 mg PO DAILY 03/18/25 Held on 03/26/25. Instructions: Restart on 03/28/2025 03/26/25 1342 <Electronically signed by Madi Mcdowell> Date _ Madi Herndon Signature (if applicable): Date CC: ~ Signed [facility] Work Phone: Consult note Author Reginaldo [facility] Note Date/Time April 19, 2025 6 :01pm [facility] Medical Records Department [address] [place] [address] Consultation - Trimmer Machine Operator 04/19/25 1750 MR#: [id number] Acct: [id number] Name: OSCAR WOO Rep #:[id number] : 1950 75 From: Reginaldo Fatima MD PCP: Dr. Kamar Grimes MD Status:ADM IN [facility] HPI Consult Data Date of Consult: 04/19/25 HPI Narrative Reason for Consultation: hypotension HPI Narrative: OSCAR WOO, is a 75 F who presents [ with falls, presyncope/ dizziness after having started furosemide 2 weeks ago- of note she was instructed to stop the furosemide and eventually did so 3 days ago but her serum sodium had continued to drop during outpatient monitoring and she was ultimately admitted to the hospital. She reports that during this time she has been exceptionally thirsty but only noted excessive urinating while taking the diuretic. She also states she would take Ensure or something similar as much as possible over past several days- to weeks making clear she didn't just drink water during this period of excessive thirst. She was initially placed on regular hospital room but subsequently transferred to ICU for closer monitoring when he blood pressure dipped low. She received ~ 2000 mL of crystalloid IVF and has not required vasopressors. Currently she states she feels better, denies SOB but her brain still seems "foggy". 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 Essential (primary) hypertension Debility Infection and inflammatory reaction due to other [...] mg tablet 10 mg PO QHS INSOMNIA 04/17/25 History bupropion HCl 300 mg 24 hr tablet, 150 mg PO DAILY DEP RESSION 06/11/20 04/18/25 History extended release gabapentin 600 mg tablet 600 mg PO QHS SLEEP 06/11/20 04/17/25 History mirtazapine 15 mg tablet 15 mg PO QHS INSOMNIA 04/17/25 History duloxetine 30 mg capsule,delayed 30 mg PO DAILY DEPRES RAHEEM 09/11/24 04/18/25 History release (Cymbalta) aspirin 81 mg chewable tablet 81 mg PO BID blood thinn er #0 tabs 09/17/24 04/18/25 Rx loperamide 2 mg capsule 2 mg PO Q2H PRN PRN DIARRHEA #0 09/17/24 Unknown Rx caps albuterol sulfate 90 mcg/actuation 2 inh inhalation Q4 H PRN shortness 03/18/25 Unknown History aerosol inhaler of breath or wheezing doxycycline hyclate 100 mg capsule 100 mg PO BID abx 0 03/18/25 04/18/25 History indapamide 2.5 mg tablet 2.5 mg PO DAILY diuretic Unknown History naproxen sodium 220 mg tablet 440 mg PO DAILY PRN pain 03/18/25 Unknown History potassium citrate 10 mEq (1,080 10 meq PO DAILY Unknown History mg) tablet,extended release pramipexole 1 mg tablet 1 mg PO QHS restless leg Unknown History spironolactone 50 mg tablet 50 mg PO DAILY diuretic 04/18/25 History carvedilol 3.125 mg tablet 1.56 mg PO BID bp 04/16/25 04/18/25 History lactobacillus combination no.9 4 4,000 mmu cells PO QD AY GI health 04/16/25 Unknown History billion cell capsule (Adult 50 Plus Probiotic) ondansetron HCl 4 mg tablet 4 mg PO Q8 PRN nausea and vomiting 04/16/25 Unknown History pramipexole 0.5 mg tablet 0.5 mg PO DINNER RLS 5 Unknown History Allergy/AdvReac Type Severity Reaction Status Date / Time Penicillins Allergy Anaphylaxis Verified 04/18/25 13:45 Family History Mother Heart disease Diabetes Brother Heart disease Diabetes Brother Heart disease pacemaker Sister Atrial fibrillation Surgical History History of reverse total replacement [...] household members: none Smoking Status: Former smoker how long ago did patient quit smokin years ago alcohol intake: never substance use type: does not use caffeine: No ROS Constitutional Constitutional: Reports systems reviewed and no addt'l complaints, except as documented Eyes Eyes: Reports systems reviewed and no addt'l complaints, except as documented ENT HEENT: Reports systems reviewed and no addt'l complaints, except as documented Cardiovascular Cardiovascular: Reports systems reviewed and no addt'l complaints, except as documented and as per HPI Respiratory/Chest Respiratory/Chest: Reports systems reviewed and no addt'l complaints, except as documented and as per HPI Objective Data Objective Data Vital Signs: Vital Signs Last response 3 Temperature 36.3 C L 04/19/25 15:30 Temperature Source Temporal 04/19/25 15:30 Pulse Rate 89 04/19/25 17:30 Pulse Strength Weak (1+) 04/19/25 09:27 Respiratory Rate 18 04/19/25 17:30 Respiratory Effort Normal, Non-Labored 04/19/25 16:25 Respiratory Depth Normal 04/19/25 16:25 Respiratory Pattern Normal 04/19/25 16:25 Blood Pressure 100/56 L 04/19/25 17:30 Blood Pressure Mean 70 04/19/25 17:30 Blood Pressure Source Monitor 04/19/25 17:30 Blood Pressure Position Semi-Fowlers 04/19/25 17:30 Blood Pressure Location Right Arm 04/19/25 17:30 Pulse Ox 93 04/19/25 17:30 Oxygen Delivery Method Nasal Cannula 04/19/25 17:30 Oxygen Flow Rate (L/min) 2 04/19/25 17:30 I&O: I&O Last 24 Hours 3 04/18/25 04/19/25 04/19/25 23:59 11:59 23:59 Intake Total 1200 / 3300 2100 / 3300 Output Total 0 / 20 20 / 20 Balance 1200 / 3280 2080 / 3280 I&O: Total Stay 3 04/18/25 13:41 thru 04/19/25 14:40 Intake Total 3300 Output Total 20 Balance 3280 Current Meds Ordered / Administered: Current meds ordered / Administered 3 Generic Name Dose Route Start Last Admin Trade Name Freq PRN Reason Stop Dose Admin Acetaminophen 650 mg 04/18/25 19:57 Acetaminophen 325 Mg Tablet PO Q6H PRN PRN Pain 1-10 Or Fever>100.7 Albuterol Sulfate 2.5 mg 04/18/25 20:10 Albuterol 2.5 Mg/3 Ml Vial.Neb. INHALATION Q4H PRN shortness of breath or wheezing Aspirin 81 mg 04/18/25 22:00 04/19/25 08:10 Aspirin 81 Mg Tab.Chew PO 81 mg BID KACEY Administration Bupropion HCl 150 mg 04/19/25 10:00 04/19/25 08:11 Bupropion (Xl) 150 Mg Tablet.Xl PO 150 mg DAILY KACEY Administration Carvedilol 3.125 mg 04/18/25 22:00 04/19/25 08:10 Carvedilol 3.125 Mg Tablet PO 3.125 mg BID KACEY Administration Duloxetine HCl 30 mg 04/19/25 10:00 04/19/25 08:10 Duloxetine Hcl 30 Mg Capsule PO 30 mg DAILY KACEY Administration Gabapentin 600 mg 04/18/25 22:00 04/18/25 21:10 Gabapentin 600 Mg Tablet PO 600 mg QHS KACEY Administration Heparin Sodium (Porcine) 5,000 unit 04/18/25 22:00 04/19/25 08:09 Heparin Injection (Vial) 5,000 Unit/Ml Vial SC 5,000 unit Q12 KACEY Administration Sodium Chloride 250 mls @ 15 mls/hr 04/19/25 02:16 IV .[id number] PRN Saline Flush Sodium Chloride 250 mls @ 15 mls/hr 04/19/25 02:16 IV .[id number] PRN Additional IVPB Infusion Melatonin 10 mg 04/18/25 22:00 04/18/25 21:14 Melatonin 10 Mg Tablet PO 10 mg QHS KACEY Administration Mirtazapine 15 mg 04/18/25 22:00 04/18/25 21:15 Mirtazapine 15 Mg Tablet PO 15 mg QHS KACEY Administration Ondansetron HCl 4 mg 04/18/25 19:57 Ondansetron 4 Mg/2 Ml Vial IV Q8H PRN PRN NAUSEA/VOMITING Pramipexole Dihydrochloride 0.5 mg 04/18/25 19:57 04/19/25 16:34 Pramipexole Di-Hcl 0.5 Mg Tablet PO 0.5 mg DINNER KACEY Administration Senna/Docusate Sodium 2 tablet 04/19/25 22:00 Senna/Docusate Sodium 1 Tablet PO BID KACEY Sodium Chloride 10 - 40 ml 04/19/25 02:16 0.9% Saline Lock 10 Ml Syringe IV UD PRN SALINE FLUSH Physical Exam Const alert and oriented x3 General Appearance: cooperative Orientation / Consciousness: awake, oriented to person, oriented to place and oriented to time Exam Limitations: no limitations HEENT normocephalic Eyes PERRL and EOMs intact bilaterally Neck no JVD Lab / Micro Data Attestation: I reviewed the patient's lab results. 04/19/25 15:05 04/19/25 17:20 Labs: Laboratory Results - last 24 hr 04/18/25 19:42: Serum Osmolality 310 H 04/19/25 03:55: POC Glucose 108 H 04/19/25 06:33: WBC 7.7, RBC 4.11 L, Hgb 12.1, Hct 36.7 L, MCV 89.3, MCH 29.4, MCHC 33.0, RDW Std Deviation 47.1 H, RDW Coeff of Terry 14.3, Plt Count 129 L, MPV 10.6, Sodium 123 L, Potassium 4.4, Chloride 78 L, Carbon Dioxide 40.9 H, Anion Gap 4 L, BUN 41 H, Creatinine 1.33 H, Estim Creat Clear Calc 45.15 L, Est GFR (MDRD) Non-Af 41 L, BUN/Creatinine Ratio 30.5 H, Glucose 105 H, Calcium 9.4, Triglycerides 125, Cholesterol 206 H, LDL Cholesterol, Calc 113, VLDL Cholesterol 25, HDL Cholesterol 71, Cholesterol/HDL Ratio 2.89, Cortisol AM Sample 18.40 04/19/25 12:44: Serum Osmolality 279 L 04/19/25 15:05: WBC 8.2, RBC 3.81 L, Hgb 11.3 L, Hct 34.7 L, MCV 91.1, MCH 29.7, MCHC 32.6, RDW Std Deviation 48.4 H, RDW Coeff of Terry 14.5, Plt Count 121 L, MPV 10.7, Immature Gran % (Auto) 0.900, Neut % (Auto) 72.5 H, Lymph % (Auto) 15.6 L, Lyon % (Auto) 7.9, Eos % (Auto) 2.7, Baso % (Auto) 0.4, Absolute Neuts (auto) 6.0, Absolute Lymphs (auto) 1.28, Nucleated RBC % 0, Lactic Acid 1.3, Total Creatine Kinase 65 04/19/25 17:20: Sodium 125 L, Potassium 4.3, Chloride 83 L, Carbon Dioxide 33.7 H, Anion Gap 9, BUN 40 H, Creatinine 1.39 H, Estim Creat Clear Calc 43.20 L, Est GFR (MDRD) Non-Af 39 L, BUN/Creatinine Ratio 28.8 H, Glucose 128 H, Calcium 8.8 Micro: Microbiology 04/19/25 16:10 Mucosa - Nose SARS-CoV-2, Influenza & RSV (PCR) - Final ABG Data ABG results: ABG 04/19/25 17:28 Specimen Type MARICRUZ Sample Site Not entered O2 % 2.0 VBG pH 7.48 H VBG pO2 133 H VBG HCO3 33 H VBG Total CO2 34 H VBG O2 Sat (Calc) 99 H VBG Base Excess 10 H POC Mix VBG pCO2 Pt Tmp 44.6 O2 Delivery Device Cannula Imaging Radiology Impression Chest X-Ray 04/19/25 14:50 IMPRESSION: Mild pulmonary vascular congestion and question interstitial edema. No focal consolidation. Mild cardiomegaly. Reading Location: [facility] Assessment and Plan . Assessment and plan: Assessment/ Plan: 1. hypotension, almost surely volume related due to fluid shifts, resolving quickly with IVF administration - no suggestion of sepsis or other condition warranting more aggressive management at present 2. hyponatremia, probably hypovolemic Suggest: 1. continued ICU monitoring overnight is reasonable 2. sodium management as currently planned by hospitlaist team- Nephrology input awaited 3. standard ICU prophylaxis is appropriate Critical Care Time: 60 minutes The entirety of this encounter was done via Telemedicine 04/19/25 180 <Electronically signed by Reginaldo Fatima MD> Cosigner Signature (if applicable): CC: Dr. Kamar Grimes MD~ Signed [facility] Work Phone: Consult note Author Keya Basilio [facility] Note Date/Time April 21, 2025 8 :53pm [facility] Medical Records Department [address] [place] [address] Consultation - Nephrology 04/21/252049 MR#: [id number] Acct: [id number] Name: OSCAR WOO Rep #:[id number] : 1950 75 From: Keya kendrick MD PCP: Dr. Kamar Grimes MD Status:ADM IN [facility] Assessment & Plan Assessment/Plan (1) Hyponatremia: PLAN: sodium and chloride were normal last month. consistent with hypovolemic hyponatremia and contraction alkalosis. sodium is slowly improving. asymptomaticfrom hyponatremia. (2) Hypochloremic alkalosis: HPI Consult Data Date of Consult: 04/21/25 HPI Narrative Reason for Consultation: Hyponatremia HPI Narrative: OSCAR WOO, is a 75 F who presents to the hospital with syncope. nephrology on consultation in view of hyponatremia. sodium was normal as of last month. apparently was started on lasix due to dyspnea. she says breathing improved somewhat. does not think she lost a lot of weight. no edema right now. no urinary complaints. 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 Essential (primary) hypertension Debility Infection and inflammatory reaction due to other [...] mg tablet 10 mg PO QHS INSOMNIA 04/17/25 History bupropion HCl 300 mg 24 hr tablet, 150 mg PO DAILY DEP RESSION 06/11/20 04/18/25 History extended release gabapentin 600 mg tablet 600 mg PO QHS SLEEP 06/11/20 04/17/25 History mirtazapine 15 mg tablet 15 mg PO QHS INSOMNIA 04/17/25 History duloxetine 30 mg capsule,delayed 30 mg PO DAILY DEPRES RAHEEM 09/11/24 04/18/25 History release (Cymbalta) aspirin 81 mg chewable tablet 81 mg PO BID blood thinn er #0 tabs 09/17/24 04/18/25 Rx loperamide 2 mg capsule 2 mg PO Q2H PRN PRN DIARRHEA #0 09/17/24 Unknown Rx caps albuterol sulfate 90 mcg/actuation 2 inh inhalation Q4 H PRN shortness 03/18/25 Unknown History aerosol inhaler of breath or wheezing doxycycline hyclate 100 mg capsule 100 mg PO BID abx 0 03/18/25 04/18/25 History indapamide 2.5 mg tablet 2.5 mg PO DAILY diuretic Unknown History naproxen sodium 220 mg tablet 440 mg PO DAILY PRN pain 03/18/25 Unknown History potassium citrate 10 mEq (1,080 10 meq PO DAILY Unknown History mg) tablet,extended release pramipexole 1 mg tablet 1 mg PO QHS restless leg Unknown History spironolactone 50 mg tablet 50 mg PO DAILY diuretic 04/18/25 History carvedilol 3.125 mg tablet 1.56 mg PO BID bp 04/16/25 04/18/25 History lactobacillus combination no.9 4 4,000 mmu cells PO QD AY GI health 04/16/25 Unknown History billion cell capsule (Adult 50 Plus Probiotic) ondansetron HCl 4 mg tablet 4 mg PO Q8 PRN nausea and vomiting 04/16/25 Unknown History pramipexole 0.5 mg tablet 0.5 mg PO DINNER RLS 5 Unknown History OXYGEN - Supplemental ([facility] hypoxia 04/21/25 Unknown Hi story INFORMATIONAL USE ONLY) Allergy/AdvReac Type Severity Reaction Status Date / Time Penicillins Allergy Anaphylaxis Verified 04/18/25 13:45 Family History Mother Heart disease Diabetes Brother Heart disease Diabetes Brother Heart disease pacemaker Sister Atrial fibrillation Surgical History History of reverse total replacement [...] household members: none Smoking Status: Former smoker how long ago did patient quit smokin years ago alcohol intake: never substance use type: does not use caffeine: No ROS ROS Narrative negative except above Physical Exam Narrative Alert awake oriented x 3 no obvious distress no pallor no icterus no JVD s1s2 no murmurs lungs clear abdomen soft no organomegaly no edema no cyanosis Lab / Micro Data 04/21/25 04:00 04/21/25 04:00 Labs: Laboratory Results - last 24 hr 04/21/25 04:00: WBC 7.6, RBC 3.91 L, Hgb 11.5 L, Hct 35.2 L, MCV 90.0, MCH 29.4,MCHC 32.7, RDW Std Deviation 46.6 H, RDW Coeff of Terry 14.6, Plt Count 113 L, MPV10.7, Immature Gran % (Auto) 1.100 H, Neut % (Auto) 74.4 H, Lymph % (Auto) 13.3 L, Lyon % (Auto) 8.1, Eos % (Auto) 2.6, Baso % (Auto) 0.5, Absolute Neuts (auto)5.7, Absolute Lymphs (auto) 1.01, Nucleated RBC % 0, Sodium 127 L, Potassium 4.2, Chloride 85 L, Carbon Dioxide 37.5 H, Anion Gap 5, BUN 33 H, Creatinine 1.20, Estim Creat Clear Calc 50.67, Est GFR (MDRD) Non-Af 47 L, BUN/Creatinine Ratio 27.3 H, Glucose 130 H, Calcium 9.0 Imaging Radiology Impression Venous Doppler Study 04/21/25 08:33 Interpretation Summary Deep veins of the lower extremities are bilaterally patent and compressible segmentally. There is no evidence of deep vein thrombosis on either side. Valvular competence appears intact within the proximal deep venous systems bilaterally. The great saphenous veins appear bilaterally patent and compressible segmentally. Ordering Physician: Garfield Pierson Referring Physician: Sixto Trinh Performed By: Dada Andujar RVT 04/21/252052 <Electronically signed by Keya Basilio MD> Cosigner Signature (if applicable): CC: Dr. Kamar Grimes MD~ Signed [facility] Work Phone: Discharge summary Author Garfield Pierson [facility] Note Date/Time April 23, 2025 5 :03pm [facility] Medical Records Department [address] [place] [address] Transfer to Extended Care MR#: [id number] Acct: [id number] Name: OSCAR WOO Rep #:[id number] : 1950 75 From: Garfield Chi PCP: Dr. Kamar Grimes MD Status:ADM IN Certification of patient admission REQUIRED AT TIME OF ADMISSION. I CERTIFY THAT POST-HOSPITAL ECF SERVICES ARE REQUIRED TO BE GIVEN ON AN IN-PATIENT BASIS BECAUSE OF THE ABOVE NAMED PATIENT'S NEED FOR FPC CARE ON A CONTINUING BASIS FOR THE CONDITION(S) FOR WHICH HE/SHE WAS RECEIVING IN-PATIENT HOSPITAL SERVICES PRIOR TO HIS/HER TRANSFER TO THE F. 04/23/25 1703<Electronically signed by Garfield Pierson MD> Diet Diet Order/Speech Therapy: INPATIENT Hospital Diet / Speech Therapy Order(s) 04/18/25 19:57 Diet: Cardiac - Heart Healthy Food consistency:: Regular Liquid Consistency:: Regular/Thin Fluid restriction:: 1500 mL Routine Orders/Code Status Suppository Type: Dulcolax 10mg Suppository Frequency: Daily PRN DC O2, CPAP, BIPAP needs Home O2 Discharge instructions: No Wound(s) right knee: Wound Type: Abrasion Therapies Extremity Affected:: Bilateral Lower Physical Therapy: Eval and Treat Occupational Therapy: Eval and Treat Speech Therapy: Eval and Treat Problem/Diagnosis (1) Hyponatremia: Status: Acute Code(s): E87.1 - Hypo-osmolality and hyponatremia Plan Patient is a 75-year-old female who presented to [facility] ED on 04/18/2025 with worsening hyponatremia and weakness with falls at home. 1. Hyponatremia probably due to diuretic which she had for 2 weeks: ? Admit under inpatient status to PCU. Nephrology consulted. Baseline sodium around 140; remained around 140 during recent complicated hospitalization from 03/18- 03/26. Dropped significantly to sodium 128 on 04/09. Was instructed to discontinue home Lasix on 04/09 but continued until 04/15. Repeat sodium 125 on 04/16 and has continued to worsen to sodium 121 on 04/18. Severe hyperchloremiawith chloride level 71-74 on recent labs. Patient was also on stress dose steroid for 2 days during recent hospitalization. She was recently discharged on 03/24/2025 after management for undifferentiated shock, acute hypoxic and hypercarbic respiratory failure which required ventilator. 04/19: Repeat sodium was 123. Improved 3 mEq. Ctc Operator is consulted. Calculated serum iron 267. Measured serum iron 310. Osmolar gap 43. Unclear etiology. The usual differential diagnosis of increased osmolar gap are methanol, ketoacidosis, lactic acidosis, ethylene glycol, propylene glycol, isopropanol. Repeat the serum osmolarity and osmolar gap. VBG ordered. 04/20: VBG 7.48/mixed pCO2 44, PaO2 133/bicarb 33/34. Bicarb and BMP was also 33.7. Anion gap 9. Sodium is still low 125 x 2. CPK 25. Lactic acid 1.3. Serum osmolality 279 which seems more appropriate than earlier reported 310. Calculated on repeat BMP 04/19 271, osmolar gap 8.0 which is in normal range.UA negative, hCG 1.015, protein 30. Ctc Operator on board 04/21: Serum sodium improved 127 today. K4.2. Bicarb of 37.5. Anion gap 5. Osmolar gap was normal as mentioned above. 04/22 was seen by pillowcase turner. Sodium and chloride at baseline. Sodium 130 4K4.7. Chloride 88. Wants to go to TCU 2. ELVIA with mild hyperkalemia, severe non-anion gap metabolic acidosis, severe hypochloremia ? Nephrology consulted as above. Creatinine 1.30, potassium 5.4 on admit. Baseline creatinine around 0.7-0.8. Bicarb 42. Chloride level 71-74 on recent labs as above. Notably creatinine was 1.6-1.9 on recent labs and has improved to 1.30 with discontinuing home Lasix and losartan. Suspect prerenal etiology due to overdiuresis. 04/19: Continue holding Lasix, losartan, indapamide and spironolactone. SevereNAGMA is presumed secondary to chronic respiratory failure as below. 04/20: Creatinine 1.31. BUN 39, BUN/creatinine ratio 29.4 still high 04/22: BUN/creatinine 28/1.12. 3. 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 Patient with recent complicated hospitalization and required intubation for combined respiratory failure from 03/18-03/20. Was discharged home on 2 L nasal cannula at rest and 3 L with exertion. Has suspected NEEL and recommendation wasfor outpatient workup for this which has not been completed yet. Stable on 2 L nasal cannula at rest in the ED. Monitor. Continue home albuterol inhaler as needed. 04/20: Rib chest x-ray reviewed shows mild pulmonary vascular congestion and bibasilar atelectasis but no obvious shortness of breath. Continue incentive spirometry and PEP for 1 week 04/22: Patient on 2 L of baseline oxygen. Incentive spirometry advised 4. Chronic HFpEF, hypertension ? Echo during recent hospitalization on 03/19 showed EF 75%, moderate concentric LV hypertrophy, no other concerning findings. Mildly hypertensive to the 140s systolic in the ED. Holding home Lasix, losartan, indapamide and spironolactoneas above. Okay to continue home Coreg. 5. Acute on chronic debility with recent falls ? PT/OT/case management consulted. Patient lives at home alone. She was able to be discharged home with home health care after recent prolonged hospitalization. Has had worsening functional status with small falls over the past week or so per family. Appreciate therapy recommendations. 6. Anxiety, depression, insomnia, restless leg syndrome, neuropathy ? Continue home bupropion, duloxetine, gabapentin, pramipexole, mirtazapine and melatonin. 7. Class II obesity ? BMI 36 on admit. Complicates hospital course and care. 8. 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 No evidence of infection. Patient on Dr. Twice daily and continued. Patient also denied prior history of DVT but Sixto Butleradriane wanted venous duplex of the lower extremities. Venous duplex ordered DVT prophylaxis: Heparin subcu CODE STATUS: DNR PAULINA, jimmie to intubate Microbiology Past 72 Hours 04/19/25 15:10 Blood Culture (Wb) #2 - Right Hand Blood Culture - Preliminary No growth in 48 hours. 04/19/25 15:05 Blood Culture (Wb) - Anticubital Right Blood Culture - Preliminary No growth in 48 hours. 04/20/25 09:35 Urine, Clean Catch Urine Culture - Final Mixed Gram Pos & Gram Neg Org 04/20/25 09:35 Urine, Clean Catch Legionella Antigen - Final 04/20/25 09:35 Urine, Clean Catch Streptococcus pneumoniae Antigen (M - Final 04/19/25 16:10 Nasal Secretion MRSA (PCR) - Final 04/19/25 16:10 Mucosa - Nose SARS-CoV-2, Influenza & RSV (PCR) - Final Laboratory Results 04/22/25 05:20: WBC 6.2, RBC 4.21, Hgb 12.3, Hct 38.2, MCV 90.7, MCH 29.2, MCHC 32.2, RDW Std Deviation 47.8 H, RDW Coeff of Terry 14.6, Plt Count 115 L, MPV 10.6, Immature Gran % (Auto) 1.800 H, Neut % (Auto) 66.8, Lymph % (Auto) 18.2 L,Lyon % (Auto) 8.7, Eos % (Auto) 3.7, Baso % (Auto) 0.8, Absolute Neuts (auto) 4.2, Absolute Lymphs (auto) 1.13, Nucleated RBC % 0, Sodium 134, Potassium 4.7, Chloride 88 L, Carbon Dioxide 40.0 H, Anion Gap 6, BUN 28 H, Creatinine 1.12, Estim Creat Clear Calc 54.29, Est GFR (MDRD) Non-Af 51 L, BUN/Creatinine Ratio 25.4 H, Glucose 102 H, Calcium 9.7 Allergies/Procedures Done in Hospital Allergies Penicillins Allergy (Verified 04/18/25 13:45) Anaphylaxis Type of Care/Length of Stay Estimated LOS: Convalescent Care Less Than 30 days Type of Care Needed: Skilled Rehab Potential: Good Prognosis: Good Additional Orders/Day of Discharge Day of Discharge: 04/23/25 Dietary and Speech Recommendations Dietitian Recommendations/Changes: Continue Cardiac diet with 1500mL/day FR. Will d/c ensure plus HP with meals at this time given maintained fluid restriction and improved oral intake. Order ONS as needed if PO regresses at meals. Discharge Plan Admission Admit Date/Time: 04/18/25 17:23 Attending Provider: Garfield Pierson Primary Care Provider: Kamar Grimes Consulting Providers: Jermaine Simms; Wally Waddell; Garrick Staples; Murtaza Hunter; Antwan Gardner; Abdirashid Smith; Gemini Briceño; Reginaldo Fatima; Rhonda Arceo; Alden Arcos; Rosalind Key; Jose Angel Handley; Petros Akbar; Julissa Lawrence; Jones Galindo; Bennett Peñaloza; Lamin Campos; Zakia Love; Sarah Hicks; Al Angel; Shaila Lai; Nayely Givens; Jamie Sawant; Brenna Young; Ruma Barnes; Saeed Felipe; Mari Fallon; Brenna Pierce; Luke Rojas; Travis Daley; Butch Ospina; Elva Mixon; John Shepard; Angel Alva; Alina Garcia; Roopa Sands; Odilia Lockwood; Adarsh Salcido; Hermann Can; Gage Jenkins; Celestino Gallagher; Tacos Hollins; John Quinn; Keya Basilio Discharge Orders/Prescriptions Prescriptions: New sennosides-docusate sodium [Stimulant Laxative Plus] 8.6-50 mg Tablet 2 tab PO BID Qty: 0 0RF carvedilol 3.125 mg Tablet 3.125 mg PO BID Qty: 0 0RF Continued ondansetron HCl 4 mg tablet 4 mg PO Q8 PRN (Reason: nausea and vomiting) Adult 50 Plus Probiotic 4 billion cell capsule 4,000 mmu cells PO QDAY Rx Instructions: administer with a meal losartan 50 MG tablet 50 mg PO BID Patient Comments: BLOOD PRESSURE melatonin 5 MG tablet 10 mg PO QHS Patient Comments: SLEEP gabapentin 600 MG tablet 600 mg PO QHS bupropion HCl 300 MG tablet extended release 24 hr 150 mg PO DAILY mirtazapine 15 MG tablet 15 mg PO QHS potassium citrate 10 mEq (1,080 mg) tablet extended release 10 meq PO DAILY doxycycline hyclate 100 mg capsule 100 mg PO BID pramipexole 1 mg tablet 1 mg PO QHS albuterol sulfate 90 mcg/actuation HFA aerosol inhaler 2 inh inhalation Q4H PRN (Reason: shortness of breath or wheezing) duloxetine [Cymbalta] 30 mg capsule,delayed release(DR/EC) 30 mg PO DAILY loperamide 2 mg Capsule 2 mg PO Q2H PRN PRN (Reason: DIARRHEA) Qty: 0 0RF aspirin 81 mg Tablet,Chewable 81 mg PO BID Qty: 0 0RF pramipexole 0.5 mg tablet 0.5 mg PO DINNER OXYGEN - Supplemental ([facility] INFORMATIONAL USE ONLY) Patient Comments: DME: [employer] 2 lpm NC continuous use, per CM note and patient. 3L with excertion Changed naproxen sodium 220 mg tablet 220 mg PO DAILY PRN (Reason: pain) 30 Days Qty: 0 0RF Held spironolactone 50 mg tablet 50 mg PO DAILY Hold Instructions: Hold it. Follow-up with nephrology before resumption. Discontinued indapamide 2.5 mg tablet 2.5 mg PO DAILY carvedilol 3.125 mg tablet 1.56 mg PO BID Referrals / Follow Up: Kamar Grimes MD [Primary Care Provider, Family Practice] - Within 2 Weeks Keya Basilio MD [Med Staff - Consulting, Nephrology] - Within 2 Weeks Referral Note: For hyponatremia. Disposition Disposition (needs filled in before D/C Order can be placed): [facility] 04/23/25 1703 <Electronically signed by Garfield Pierson MD> Cosigner Signature (if applicable): CC: Dr. Garrick Staples MD; Dr. Jermaine Simms DO; Dr. Wally Waddell MD; Dr. Murtaza Hunter MD; Dr. Abdirashid Smith MD; Dr. Antwan Gardner DO; Dr. Reginaldo Fatima MD; Dr. Gemini Briceño DO; Dr. Kamar Grimes MD; Dr. Rhonda Arceo MD; Dr. Alden Arcos MD; Dr. Jose Angel Handley MD; Dr. Zakia Love MD; Dr. Bennett Peñaloza MD; Dr. Keya Basilio MD; Dr. Petros Akbar MD; Dr. Julissa Lawrence MD; Dr. Jones Galindo MD; Dr. Lamin Campos MD; Dr. Sarah Hicks MD; Dr. Al Angel MD; Dr. Shaila Lai MD; Dr. Ritu Felipe MD;Dr. Ruma Barnes MD; Dr. Jamie Sawant MD; Dr. Mari Fallon DO; Dr. Brenna Young MD; Dr. Brenna Pierce MD; Dr. Nayely Givens DO; Dr. Luke Rojas DO; Dr. Butch Ospina MD; Dr. Travis Daley MD; Dr. Elva Mixon; Dr. John Shepard MD; Dr. Adarsh Salcido MD; Dr. Odilia Lockwood MD;Dr. Roopa Sands MD; Dr. Alina Garcia MD; Dr. Angel Alva DO; Dr. Gage Jenkins MD; Dr. Hermann Can DO; Dr. Tacos Hollins MD; Dr. Celestino Gallagher MD; Dr. John Quinn MD; Dr. Rosalind Key MD ~ [facility] Work Phone: Discharge summary Author [facility] Note Date/Time April 23, 2025 5 :11pm [facility] Medical Records Department [address] [place] [address] Discharge Summary 04/23/25 1708 MR#: [id number] Acct: [id number] Name: OSCAR WOO Rep #:[id number] : 1950 75 From: Garfield Chi PCP: Dr. Kamar Grimes MD Status:ADM IN Location: [place] [id number]- Providers Date of Admission: 04/18/25 Date of Discharge: 04/23/25 Primary Care Physician: Dr. Kamar Grimes MD Consultations 04/18/25 22:05 Consult: Nephrology Routine Consulting Provider: Keya Basilio Reason for Consult: worsening hyponatremia, severe hypochloremia, ELVIA EMERGENT Consult: No MD Notified: Yes Date Notified: 04/19/25 Time Notified: 06:47 Method of Notification: Answering Service 04/19/25 14:46 Consult: Trimmer Machine Operator / Pulmonary Medicine Routine Consulting Provider: Intensivists/Pulmonary Med Reason for Consult: hypotension, dizzy EMERGENT Consult: No Notified: Yes Date Notified: 04/19/25 Time Notified: 14:44 Method of Notification: Answering Service Reason For Visit: HYPONATREMIA, FALLS Diagnosis Discharge Diagnosis (1) Hyponatremia: Status: Acute Code(s): E87.1 - Hypo-osmolality and hyponatremia Plan Patient is a 75-year-old female who presented to [facility] ED on 04/18/2025 with worsening hyponatremia and weakness with falls at home. 1. Hyponatremia probably due to diuretic which she had for 2 weeks: ? Admit under inpatient status to PCU. Nephrology consulted. Baseline sodium around 140; remained around 140 during recent complicated hospitalization from 03/18- 03/26. Dropped significantly to sodium 128 on 04/09. Was instructed to discontinue home Lasix on 04/09 but continued until 04/15. Repeat sodium 125 on 04/16 and has continued to worsen to sodium 121 on 04/18. Severe hyperchloremiawith chloride level 71-74 on recent labs. Patient was also on stress dose steroid for 2 days during recent hospitalization. She was recently discharged on 03/24/2025 after management for undifferentiated shock, acute hypoxic and hypercarbic respiratory failure which required ventilator. 04/19: Repeat sodium was 123. Improved 3 mEq. Ctc Operator is consulted. Calculated serum iron 267. Measured serum iron 310. Osmolar gap 43. Unclear etiology. The usual differential diagnosis of increased osmolar gap are methanol, ketoacidosis, lactic acidosis, ethylene glycol, propylene glycol, isopropanol. Repeat the serum osmolarity and osmolar gap. VBG ordered. 04/20: VBG 7.48/mixed pCO2 44, PaO2 133/bicarb 33/34. Bicarb and BMP was also 33.7. Anion gap 9. Sodium is still low 125 x 2. CPK 25. Lactic acid 1.3. Serum osmolality 279 which seems more appropriate than earlier reported 310. Calculated on repeat BMP 04/19 271, osmolar gap 8.0 which is in normal range.UA negative, hCG 1.015, protein 30. Ctc Operator on board 04/21: Serum sodium improved 127 today. K4.2. Bicarb of 37.5. Anion gap 5. Osmolar gap was normal as mentioned above. 04/22 was seen by pillowcase turner. Sodium and chloride at baseline. Sodium 130 4K4.7. Chloride 88. Wants to go to TCU 04/23: Sodium returned normal 134. Patient was on indapamide, naproxen and spironolactone 50 mg daily that is discontinued. Follow-up nephrology in 2 weeks to see whether low-dose spironolactone can be resumed. Naproxen dose decreased to 220 mg as needed. Serum potassium is 4.7. 2. ELVIA with mild hyperkalemia, severe non-anion gap metabolic acidosis, severe hypochloremia ? Nephrology consulted as above. Creatinine 1.30, potassium 5.4 on admit. Baseline creatinine around 0.7-0.8. Bicarb 42. Chloride level 71-74 on recent labs as above. Notably creatinine was 1.6-1.9 on recent labs and has improved to 1.30 with discontinuing home Lasix and losartan. Suspect prerenal etiology due to overdiuresis. 04/19: Continue holding Lasix, losartan, indapamide and spironolactone. SevereNAGMA is presumed secondary to chronic respiratory failure as below. 04/20: Creatinine 1.31. BUN 39, BUN/creatinine ratio 29.4 still high 04/22: BUN/creatinine 28/1.12. 3. 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 Patient with recent complicated hospitalization and required intubation for combined respiratory failure from 03/18-03/20. Was discharged home on 2 L nasal cannula at rest and 3 L with exertion. Has suspected NEEL and recommendation wasfor outpatient workup for this which has not been completed yet. Stable on 2 L nasal cannula at rest in the ED. Monitor. Continue home albuterol inhaler as needed. 04/20: Rib chest x-ray reviewed shows mild pulmonary vascular congestion and bibasilar atelectasis but no obvious shortness of breath. Continue incentive spirometry and PEP for 1 week 04/22: Patient on 2 L of baseline oxygen. Incentive spirometry advised 4. Chronic HFpEF, hypertension ? Echo during recent hospitalization on 03/19 showed EF 75%, moderate concentric LV hypertrophy, no other concerning findings. Mildly hypertensive to the 140s systolic in the ED. Holding home Lasix, losartan, indapamide and spironolactoneas above. Okay to continue home Coreg. 5. Acute on chronic debility with recent falls ? PT/OT/case management consulted. Patient lives at home alone. She was able to be discharged home with home health care after recent prolonged hospitalization. Has had worsening functional status with small falls over the past week or so per family. Appreciate therapy recommendations. 6. Anxiety, depression, insomnia, restless leg syndrome, neuropathy ? Continue home bupropion, duloxetine, gabapentin, pramipexole, mirtazapine and melatonin. 7. Class II obesity ? BMI 36 on admit. Complicates hospital course and care. 8. 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 No evidence of infection. Patient on Dr. Twice daily and continued. Patient also denied prior history of DVT but Sixto Trinh wanted venous duplex of the lower extremities. Venous duplex ordered DVT prophylaxis: Heparin subcu CODE STATUS: DNR CCA, okay to intubate Discharge medication reconciliation done. Discharge follow-up instructions completed. Discharge process discussed with the patient and all questions wereanswered to patient's satisfaction. Follow with PCP in 1 to 2 weeks Total time spent, exact 35 minutes on discharge meds reconciliation, examination, coordination of care with nurses and ancillary staff, review of imaging and blood test and discussion with the patient on follow-up instructions. Microbiology Past 72 Hours 04/19/25 15:10 Blood Culture (Wb) #2 - Right Hand Blood Culture - Preliminary No growth in 48 hours. 04/19/25 15:05 Blood Culture (Wb) - Anticubital Right Blood Culture - Preliminary No growth in 48 hours. 04/20/25 09:35 Urine, Clean Catch Urine Culture - Final Mixed Gram Pos & Gram Neg Org 04/20/25 09:35 Urine, Clean Catch Legionella Antigen - Final 04/20/25 09:35 Urine, Clean Catch Streptococcus pneumoniae Antigen (M - Final 04/19/25 16:10 Nasal Secretion MRSA (PCR) - Final 04/19/25 16:10 Mucosa - Nose SARS-CoV-2, Influenza & RSV (PCR) - Final Laboratory Results 04/22/25 05:20: WBC 6.2, RBC 4.21, Hgb 12.3, Hct 38.2, MCV 90.7, MCH 29.2, MCHC 32.2, RDW Std Deviation 47.8 H, RDW Coeff of Terry 14.6, Plt Count 115 L, MPV 10.6, Immature Gran % (Auto) 1.800 H, Neut % (Auto) 66.8, Lymph % (Auto) 18.2 L,Lyon % (Auto) 8.7, Eos % (Auto) 3.7, Baso % (Auto) 0.8, Absolute Neuts (auto) 4.2, Absolute Lymphs (auto) 1.13, Nucleated RBC % 0, Sodium 134, Potassium 4.7, Chloride 88 L, Carbon Dioxide 40.0 H, Anion Gap 6, BUN 28 H, Creatinine 1.12, Estim Creat Clear Calc 54.29, Est GFR (MDRD) Non-Af 51 L, BUN/Creatinine Ratio 25.4 H, Glucose 102 H, Calcium 9.7 Medications at Discharge Home Medications losartan 50 mg tablet 50 mg PO BID BP 09/19/14 melatonin 5 mg tablet 10 mg PO QHS INSOMNIA 09/19/14 bupropion HCl 300 mg 24 hr tablet, extended release 150 mg PO DAILY DEPRESSION 06/11/20 gabapentin 600 mg tablet 600 mg PO QHS SLEEP 06/11/20 mirtazapine 15 mg tablet 15 mg PO QHS INSOMNIA 06/24/20 duloxetine 30 mg capsule,delayed release (Cymbalta) 30 mg PO DAILY DEPRESSION 09/11/24 aspirin 81 mg chewable tablet 81 mg PO BID blood thinner #0 tabs 09/17/24 loperamide 2 mg capsule 2 mg PO Q2H PRN PRN DIARRHEA #0 caps 09/17/24 albuterol sulfate 90 mcg/actuation aerosol inhaler 2 inh inhalation Q4H PRN shortness of breath or wheezing 03/18/25 doxycycline hyclate 100 mg capsule 100 mg PO BID abx 03/18/25 potassium citrate 10 mEq (1,080 mg) tablet,extended release 10 meq PO DAILY 03/18/25 pramipexole 1 mg tablet 1 mg PO QHS restless leg 03/18/25 spironolactone 50 mg tablet 50 mg PO DAILY diuretic 03/18/25 Held on 04/23/25. Instructions: Hold it. Follow-up with nephrology before resumption. lactobacillus combination no.9 4 billion cell capsule (Adult 50 Plus Probiotic) 4,000 mmu cells PO QDAY GI health 04/16/25 ondansetron HCl 4 mg tablet 4 mg PO Q8 PRN nausea and vomiting 04/16/25 pramipexole 0.5 mg tablet 0.5 mg PO DINNER RLS 04/16/25 OXYGEN - Supplemental ([facility] INFORMATIONAL USE ONLY) hypoxia 04/21/25 carvedilol 3.125 mg tablet 3.125 mg PO BID #0 tabs 04/23/25 naproxen sodium 220 mg tablet 220 mg PO DAILY PRN pain 30 days #0 tabs 04/23/25 sennosides 8.6 mg-docusate sodium 50 mg tablet (Stimulant Laxative Plus) 2 tab PO BID #0 tabs 04/23/25 Physical Exam Narrative Seen and examined Soft/liquid bowel movement controlled improved on loperamide Feels weak. Continue doxycycline left shoulder infection by Dr. Andrade. Serum sodium is normal. Physical exam General: Awake, alert oriented x3, Cooperative HEENT: Atraumatic, PERRLA, EOMI, Normocephalic. Oral: No Gingival or Mucosal Lesions/ Ulcerations Neck: Supple, No JVD, Negative Carotid Bruits Chest wall/Lungs: Air entry diminished in bilateral lung bases. No crepitation Cardiovascular: Low BP. No M/G/R Abdomen: Bowel Sounds Present, Soft, Non Tender, Non-Distended : No dysuria. No renal angle tenderness. No suprapubic tenderness. Extremities: No edema, Capillary Refill Less than 3 Seconds Skin: Bruise on the right knee Musculoskeletal: Weakness of lower extremities, 4+/5 at knees and hip joints. Left shoulder prosthetic joint. No Tenderness to Palpation of Joints or Extremities Neurological: Cranial nerves II-XII grossly intact, DTR 2+/4. No acute focal neurological deficit. Psych/Mental Status: Flat affect Weight / BMI Weight Weight: 236 lb 1.841 oz Body Mass Index (BMI) 36.9 ABG / Lab / Microbiology Data 04/22/25 05:20 04/22/25 05:20 Microbiology: Microbiology 04/19/25 15:10 Blood Culture (Wb) #2 - Right Hand Blood Culture - Preliminary No growth in 48 hours. 04/19/25 15:05 Blood Culture (Wb) - Anticubital Right Blood Culture - Preliminary No growth in 48 hours. 04/20/25 09:35 Urine, Clean Catch Urine Culture - Final Mixed Gram Pos & Gram Neg Org 04/20/25 09:35 Urine, Clean Catch Legionella Antigen - Final 04/20/25 09:35 Urine, Clean Catch Streptococcus pneumoniae Antigen (M - Final 04/19/25 16:10 Nasal Secretion MRSA (PCR) - Final 04/19/25 16:10 Mucosa - Nose SARS-CoV-2, Influenza & RSV (PCR) - Final D/C Instructions DC O2, CPAP, BIPAP Needs Home O2 Discharge instructions: No Meaningful Use Info Meaningful Use Meaningful Use Diagnoses (Choose all that apply): None applicable Discharge Plan Admission Admit Date/Time: 04/18/25 17:23 Attending Provider: Garfield Pierson Primary Care Provider: Kamar Grimes Consulting Providers: Jermaine Simms; Wally Waddell; Garrick Staples; Murtaza Hunter; Antwan Gardner; Abdirashid Smith; Gemini Briceño; Reginaldo Fatima; Rhonda Arceo; Alden Arcos; Rosalind Key; Jose Angel Handley; Petros Akbar; Julissa Lawrence; Jones Galindo; Bennett Peñaloza; Lamin Campos; Zakia Love; Sarah Hicks; Al Angel; Shaila Lai; Nayely Givens; Jamie Sawant; Brenna Young; Ruma Barnes; Saeed Felipe; Mari Fallon; Brenna Pierce; Luke Rojas; Travis Daley; Butch Ospina; Elva Mixon; John Shepard; Angel Alva; Alina Garcia; Roopa Sands; Odilia Lockwood; Adarsh Salcido; Hermann Can; Gage Jenkins; Celestino Gallagher; Tacos Hollins; John Quinn; Keya Basilio Discharge Orders/Prescriptions Prescriptions: New sennosides-docusate sodium [Stimulant Laxative Plus] 8.6-50 mg Tablet 2 tab PO BID Qty: 0 0RF carvedilol 3.125 mg Tablet 3.125 mg PO BID Qty: 0 0RF Continued ondansetron HCl 4 mg tablet 4 mg PO Q8 PRN (Reason: nausea and vomiting) Adult 50 Plus Probiotic 4 billion cell capsule 4,000 mmu cells PO QDAY Rx Instructions: administer with a meal losartan 50 MG tablet 50 mg PO BID Patient Comments: BLOOD PRESSURE melatonin 5 MG tablet 10 mg PO QHS Patient Comments: SLEEP gabapentin 600 MG tablet 600 mg PO QHS bupropion HCl 300 MG tablet extended release 24 hr 150 mg PO DAILY mirtazapine 15 MG tablet 15 mg PO QHS potassium citrate 10 mEq (1,080 mg) tablet extended release 10 meq PO DAILY doxycycline hyclate 100 mg capsule 100 mg PO BID pramipexole 1 mg tablet 1 mg PO QHS albuterol sulfate 90 mcg/actuation HFA aerosol inhaler 2 inh inhalation Q4H PRN (Reason: shortness of breath or wheezing) duloxetine [Cymbalta] 30 mg capsule,delayed release(DR/EC) 30 mg PO DAILY loperamide 2 mg Capsule 2 mg PO Q2H PRN PRN (Reason: DIARRHEA) Qty: 0 0RF aspirin 81 mg Tablet,Chewable 81 mg PO BID Qty: 0 0RF pramipexole 0.5 mg tablet 0.5 mg PO DINNER OXYGEN - Supplemental ([facility] INFORMATIONAL USE ONLY) Patient Comments: DME: [employer] 2 lpm NC continuous use, per CM note and patient. 3L with excertion Changed naproxen sodium 220 mg tablet 220 mg PO DAILY PRN (Reason: pain) 30 Days Qty: 0 0RF Held spironolactone 50 mg tablet 50 mg PO DAILY Hold Instructions: Hold it. Follow-up with nephrology before resumption. Discontinued indapamide 2.5 mg tablet 2.5 mg PO DAILY carvedilol 3.125 mg tablet 1.56 mg PO BID Referrals / Follow Up: Kamar Grimes MD [Primary Care Provider, Family Practice] - Within 2 Weeks Keya Basilio MD [Med Staff - Consulting, Nephrology] - Within 2 Weeks Referral Note: For hyponatremia. Disposition Disposition (needs filled in before D/C Order can be placed): [facility] Charges/Coding Visit Charges Inpatient E&M: 50034 Disch Hosp >30min 04/23/251710 <Electronically signed by Garfield Pierson MD> Cosigner Signature (if applicable): CC: Dr. Kamar Grimes MD; Dr. Garfield Pierson MD~ Signed [facility] Work Phone: Discharge summary Author Garfield Pierson [facility] Note Date/Time April 23, 2025 6 :03pm [facility] Medical Records Department [address] [place] [address] Transfer to [facility] MR#: [id number] Acct: [id number] Name: OSCAR WOO Rep #:[id number] : 1950 75 From: Garfield Chi PCP: Dr. Kamar Grimes MD Status:ADM IN Certification of patient admission REQUIRED AT TIME OF ADMISSION. I CERTIFY THAT POST-HOSPITAL ECF SERVICES ARE REQUIRED TO BE GIVEN ON AN IN-PATIENT BASIS BECAUSE OF THE ABOVE NAMED PATIENT'S NEED FOR [facility]PC CARE ON A CONTINUING BASIS FOR THE CONDITION(S) FOR WHICH HE/SHE WAS RECEIVING IN-PATIENT HOSPITAL SERVICES PRIOR TO HIS/HER TRANSFER TO THE F. 04/23/251702<Electronically signed by Garfield Pierson MD> Diet Diet Order/Speech Therapy: INPATIENT Hospital Diet / Speech Therapy Order(s) 04/18/25 19:57 Diet: Cardiac - Heart Healthy Food consistency:: Regular Liquid Consistency:: Regular/Thin Fluid restriction:: 1500 mL Routine Orders/Code Status Suppository Type: Dulcolax 10mg Suppository Frequency: Daily PRN DC O2, CPAP, BIPAP needs Home O2 Discharge instructions: No Wound(s) right knee: Wound Type: Abrasion Therapies Extremity Affected:: Bilateral Lower Physical Therapy: Eval and Treat Occupational Therapy: Eval and Treat Speech Therapy: Eval and Treat Problem/Diagnosis (1) Hyponatremia: Status: Acute Code(s): E87.1 - Hypo-osmolality and hyponatremia Plan Patient is a 75-year-old female who presented to [facility] ED on 04/18/2025 with worsening hyponatremia and weakness with falls at home. 1. Hyponatremia probably due to diuretic which she had for 2 weeks: ? Admit under inpatient status to PCU. Nephrology consulted. Baseline sodium around 140; remained around 140 during recent complicated hospitalization from 03/18- 03/26. Dropped significantly to sodium 128 on 04/09. Was instructed to discontinue home Lasix on 04/09 but continued until 04/15. Repeat sodium 125 on 04/16 and has continued to worsen to sodium 121 on 04/18. Severe hyperchloremiawith chloride level 71-74 on recent labs. Patient was also on stress dose steroid for 2 days during recent hospitalization. She was recently discharged on 03/24/2025 after management for undifferentiated shock, acute hypoxic and hypercarbic respiratory failure which required ventilator. 04/19: Repeat sodium was 123. Improved 3 mEq. Ctc Operator is consulted. Calculated serum iron 267. Measured serum iron 310. Osmolar gap 43. Unclear etiology. The usual differential diagnosis of increased osmolar gap are methanol, ketoacidosis, lactic acidosis, ethylene glycol, propylene glycol, isopropanol. Repeat the serum osmolarity and osmolar gap. VBG ordered. 04/20: VBG 7.48/mixed pCO2 44, PaO2 133/bicarb 33/34. Bicarb and BMP was also 33.7. Anion gap 9. Sodium is still low 125 x 2. CPK 25. Lactic acid 1.3. Serum osmolality 279 which seems more appropriate than earlier reported 310. Calculated on repeat BMP 04/19 271, osmolar gap 8.0 which is in normal range.UA negative, hCG 1.015, protein 30. Ctc Operator on board 04/21: Serum sodium improved 127 today. K4.2. Bicarb of 37.5. Anion gap 5. Osmolar gap was normal as mentioned above. 04/22 was seen by pillowcase turner. Sodium and chloride at baseline. Sodium 130 4K4.7. Chloride 88. Wants to go to TCU 2. ELVIA with mild hyperkalemia, severe non-anion gap metabolic acidosis, severe hypochloremia ? Nephrology consulted as above. Creatinine 1.30, potassium 5.4 on admit. Baseline creatinine around 0.7-0.8. Bicarb 42. Chloride level 71-74 on recent labs as above. Notably creatinine was 1.6-1.9 on recent labs and has improved to 1.30 with discontinuing home Lasix and losartan. Suspect prerenal etiology due to overdiuresis. 04/19: Continue holding Lasix, losartan, indapamide and spironolactone. SevereNAGMA is presumed secondary to chronic respiratory failure as below. 04/20: Creatinine 1.31. BUN 39, BUN/creatinine ratio 29.4 still high 04/22: BUN/creatinine 28/1.12. 3. 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 Patient with recent complicated hospitalization and required intubation for combined respiratory failure from 03/18-03/20. Was discharged home on 2 L nasal cannula at rest and 3 L with exertion. Has suspected NEEL and recommendation wasfor outpatient workup for this which has not been completed yet. Stable on 2 L nasal cannula at rest in the ED. Monitor. Continue home albuterol inhaler as needed. 04/20: Rib chest x-ray reviewed shows mild pulmonary vascular congestion and bibasilar atelectasis but no obvious shortness of breath. Continue incentive spirometry and PEP for 1 week 04/22: Patient on 2 L of baseline oxygen. Incentive spirometry advised 4. Chronic HFpEF, hypertension ? Echo during recent hospitalization on 03/19 showed EF 75%, moderate concentric LV hypertrophy, no other concerning findings. Mildly hypertensive to the 140s systolic in the ED. Holding home Lasix, losartan, indapamide and spironolactoneas above. Okay to continue home Coreg. 5. Acute on chronic debility with recent falls ? PT/OT/case management consulted. Patient lives at home alone. She was able to be discharged home with home health care after recent prolonged hospitalization. Has had worsening functional status with small falls over the past week or so per family. Appreciate therapy recommendations. 6. Anxiety, depression, insomnia, restless leg syndrome, neuropathy ? Continue home bupropion, duloxetine, gabapentin, pramipexole, mirtazapine and melatonin. 7. Class II obesity ? BMI 36 on admit. Complicates hospital course and care. 8. 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 No evidence of infection. Patient on Dr. Twice daily and continued. Patient also denied prior history of DVT but Sixto Trinh wanted venous duplex of the lower extremities. Venous duplex ordered DVT prophylaxis: Heparin subcu CODE STATUS: DNR CCA, okay to intubate Microbiology Past 72 Hours 04/19/25 15:10 Blood Culture (Wb) #2 - Right Hand Blood Culture - Preliminary No growth in 48 hours. 04/19/25 15:05 Blood Culture (Wb) - Anticubital Right Blood Culture - Preliminary No growth in 48 hours. 04/20/25 09:35 Urine, Clean Catch Urine Culture - Final Mixed Gram Pos & Gram Neg Org 04/20/25 09:35 Urine, Clean Catch Legionella Antigen - Final 04/20/25 09:35 Urine, Clean Catch Streptococcus pneumoniae Antigen (M - Final 04/19/25 16:10 Nasal Secretion MRSA (PCR) - Final 04/19/25 16:10 Mucosa - Nose SARS-CoV-2, Influenza & RSV (PCR) - Final Laboratory Results 04/22/25 05:20: WBC 6.2, RBC 4.21, Hgb 12.3, Hct 38.2, MCV 90.7, MCH 29.2, MCHC 32.2, RDW Std Deviation 47.8 H, RDW Coeff of Terry 14.6, Plt Count 115 L, MPV 10.6, Immature Gran % (Auto) 1.800 H, Neut % (Auto) 66.8, Lymph % (Auto) 18.2 L,Lyon % (Auto) 8.7, Eos % (Auto) 3.7, Baso % (Auto) 0.8, Absolute Neuts (auto) 4.2, Absolute Lymphs (auto) 1.13, Nucleated RBC % 0, Sodium 134, Potassium 4.7, Chloride 88 L, Carbon Dioxide 40.0 H, Anion Gap 6, BUN 28 H, Creatinine 1.12, Estim Creat Clear Calc 54.29, Est GFR (MDRD) Non-Af 51 L, BUN/Creatinine Ratio 25.4 H, Glucose 102 H, Calcium 9.7 Allergies/Procedures Done in Hospital Allergies Penicillins Allergy (Verified 04/18/25 13:45) Anaphylaxis Type of Care/Length of Stay Estimated LOS: Convalescent Care Less Than 30 days Type of Care Needed: Skilled Rehab Potential: Good Prognosis: Good Additional Orders/Day of Discharge Day of Discharge: 04/23/25 Dietary and Speech Recommendations Dietitian Recommendations/Changes: Continue Cardiac diet with 1500mL/day FR. Will d/c ensure plus HP with meals at this time given maintained fluid restriction and improved oral intake. Order ONS as needed if PO regresses at meals. Discharge Plan Admission Admit Date/Time: 04/18/25 17:23 Attending Provider: Garfield Pierson Primary Care Provider: Kamar Grimes Consulting Providers: Jermaine Simms; Wally Waddell; Garrick Staples; Murtaza Hunter; Antwan Gardner; Abdirashid Smith; Gemini Briceño; Reginaldo Fatima; Rhonda Arceo; Alden Arcos; Rosalind Key; Jose Angel Handley; Petros Akbar; Julissa Lawrence; Jones Galindo; Bennett Peñaloza; Lamin Campos; Zakia Love; Sarah Hicks; Al Angel; Shaila Lai; Nayely Givens; Jamie Sawant; Brenna Young; Ruma Barnes; Saeed Felipe; Mari Fallon; Brenna Pierce; Luke Rojas; Travis Daley; Butch Ospina; Elva Mixon; John Shepard; Angel Alva; Alina Garcia; Roopa Sands; Odilia Lockwood; Adarsh Salcido; Hermann Can; Gage Jenkins; Celestino Gallagher; Tacos Hollins; John Quinn; Keya Basilio Discharge Orders/Prescriptions Prescriptions: New sennosides-docusate sodium [Stimulant Laxative Plus] 8.6-50 mg Tablet 2 tab PO BID Qty: 0 0RF carvedilol 3.125 mg Tablet 3.125 mg PO BID Qty: 0 0RF Continued ondansetron HCl 4 mg tablet 4 mg PO Q8 PRN (Reason: nausea and vomiting) Adult 50 Plus Probiotic 4 billion cell capsule 4,000 mmu cells PO QDAY Rx Instructions: administer with a meal losartan 50 MG tablet 50 mg PO BID Patient Comments: BLOOD PRESSURE melatonin 5 MG tablet 10 mg PO QHS Patient Comments: SLEEP gabapentin 600 MG tablet 600 mg PO QHS bupropion HCl 300 MG tablet extended release 24 hr 150 mg PO DAILY mirtazapine 15 MG tablet 15 mg PO QHS potassium citrate 10 mEq (1,080 mg) tablet extended release 10 meq PO DAILY doxycycline hyclate 100 mg capsule 100 mg PO BID pramipexole 1 mg tablet 1 mg PO QHS albuterol sulfate 90 mcg/actuation HFA aerosol inhaler 2 inh inhalation Q4H PRN (Reason: shortness of breath or wheezing) duloxetine [Cymbalta] 30 mg capsule,delayed release(DR/EC) 30 mg PO DAILY loperamide 2 mg Capsule 2 mg PO Q2H PRN PRN (Reason: DIARRHEA) Qty: 0 0RF aspirin 81 mg Tablet,Chewable 81 mg PO BID Qty: 0 0RF pramipexole 0.5 mg tablet 0.5 mg PO DINNER OXYGEN - Supplemental ([facility] INFORMATIONAL USE ONLY) Patient Comments: DME: [employer] 2 lpm NC continuous use, per CM note and patient. 3L with excertion Changed naproxen sodium 220 mg tablet 220 mg PO DAILY PRN (Reason: pain) 30 Days Qty: 0 0RF Held spironolactone 50 mg tablet 50 mg PO DAILY Hold Instructions: Hold it. Follow-up with nephrology before resumption. Discontinued indapamide 2.5 mg tablet 2.5 mg PO DAILY carvedilol 3.125 mg tablet 1.56 mg PO BID Referrals / Follow Up: Kamar Grimes MD [Primary Care Provider, Family Practice] - Within 2 Weeks Keya Basilio MD [Med Staff - Consulting, Nephrology] - Within 2 Weeks Referral Note: For hyponatremia. Disposition Disposition (needs filled in before D/C Order can be placed): [facility] 04/23/25 8229 <Electronically signed by Garfield Pierson MD> Cosigner Signature (if applicable): CC: Dr. Garrick Staples MD; Dr. Jermaine Simms DO; Dr. Wally Waddell MD; Dr. Murtaza Hunter MD; Dr. Abdirashid Smith MD; Dr. Antwan Gardner DO; Dr. Reginaldo Fatima MD; Dr. Gemini Briceño DO; Dr. Kamar Grimes MD; Dr. Rhonda Arceo MD; Dr. Alden Arcos MD; Dr. Jose Angel Handley MD; Dr. Zakia Love MD; Dr. Bennett Peñaloza MD; Dr. Keya Basilio MD; Dr. Petros Akbar MD; Dr. Julissa Lawrence MD; Dr. Jones Galindo MD; Dr. Lamin Campos MD; Dr. Sarah Hicks MD; Dr. Al Angel MD; Dr. Shaila Lai MD; Dr. Ritu Felipe MD;Dr. Ruma Barnes MD; Dr. Jamie Sawant MD; Dr. Mari Fallon DO; Dr. Brenna Young MD; Dr. Brenna Pierce MD; Dr. Nayely Givens DO; Dr. Luke Rojas DO; Dr. Butch Ospina MD; Dr. Travis Daley MD; Dr. Elva Mixon; Dr. John Shepard MD; Dr. Adarsh Salcido MD; Dr. Odilia Lockwood MD;Dr. Roopa Sands MD; Dr. Alina Garcia MD; Dr. Angel lAva DO; Dr. Gage Jenkins MD; Dr. Hermann Can DO; Dr. Tacos Hollins MD; Dr. Celestino Gallagher MD; Dr. John Quinn MD; Dr. Rosalind Key MD ~ [facility] Work Phone: Evaluation noteNo assessment information available [facility] Work Phone: Evaluation note* Diagnosis Onset Date Resolution Status Admit Date [facility] [place] [facility] [place]:38[place] Acute kidney injury acute [facility] 2024 7:38pm Acute respiratory failure with [facility] Bacteria in urine acute [facility] 2024 7:38pm Debility acute March 7:38pm Hypothermia acute March 7:38pm Shock acute March 7:38pm Acute on chronic respiratory failure with hypoxia and hypercapnia chronic March 18, 2025 7:38pm [facility] Work Phone: History and physical note Author Emili Lee [facility] Note Date/Time March 18, 2025 8:45pm [facility] Medical Records Department [address] [place] [address] H&P Exam - Hospitalist 03/18/251937 MR#: [id number] Acct: [id number] Name: OSCAR WOO Rep #:[id number] : 1950 75 From: Emili Lee MD PCP: Dr. Kamar Grimes MD Status:ADM IN Location: ICU ICU02-1 HPI - General General Date of Admission: 03/18/25 Date of Service: 03/18/25 Chief Complaint: Altered mental status HPI Narrative OSCAR WOO, is a 75-year-old female with a history of restless leg syndrome, hypertension, depression, hypertension presented [facility] ED 03/18/2025 due to altered mental status. [...] and had not been having any vomiting. [facility] Medical History Infection and inflammatory reaction due [...] Std Deviation 49.9 H, RDW Coeff of Teryr 14.6, Plt Count 218, MPV 10.4, Immature Gran % (Auto) 0.900, Neut % (Auto) 84.3 H, Lymph % (Auto) 7.4 L, Lyon % (Auto) 7.0, Eos % (Auto) 0.0, [...] Clarity Clear, Urine pH 6.0, Ur Specific [place] 1.015, Urine Protein 30 H, Urine Glucose [...] IMPRESSION: No acute intracranial process. Reading Location: [id number] Chest X-Ray 03/18/25 15:35 IMPRESSION: Bilateral low lung volumes. No acute cardiopulmonary abnormality. Reading Location: [id number] Chest X-Ray 03/18/25 17:44 IMPRESSION: 1. Endotracheal tube tip 3.1 cm above the abigail. 2. Enteric tube appropriately positioned terminating in the upper midabdomen. 3. Cardiomegaly, with increased vascular markings and possible interstitial edema. Reading Location: [facility] KUB X-Ray 03/18/25 18:00 IMPRESSION: Enteric tube terminates appropriately within the stomach. Persistent IV contrast opacifying the kidneys suggesting medical renal disease with delayed excretion. Reading Location: [facility] Assessment & Plan Assessment/Plan (1) Shock: [...] septic component at this time -Did order Pro-Kwesi, ESR, CRP however due to procedures and imaging these have yet to be obtained, will not delay antibiotics while awaiting labs, de-escalate as appropriate -Broad-spectrum antibiotics to be started -Patient be admitted to the ICU, gasoline dragline operator consulted - Patient received 1 L of IV fluids, not given further IV fluids due to recent diagnosis of heart failure and chest x-ray coronary congestion # Acute hypoxic hypercapnic respiratory failure -Patient came in altered, developed progressive hypoxia and was found to be hypercapnic, ultimately required intubation and sedation -Admit to ICU -Workup as above -Scheduled nebs -Will check proBNP - Trimmer Machine Operator consult #Acute renal failure - Creatinine was [...] -Continue home medications once able #DVT ppx: Juan Jose Lee MD Time spent in the patient's [...] Vasopressors started Charges/Coding Visit Charges Inpatient E&M: 58326 Init Hosp L3 03/18/252044 <Electronically signed by Emili Lee MD> Cosigner Signature (if applicable): CC: Dr. Kamar Grimes MD; Dr. Emili Lee MD~ Signed [facility] Work Phone: History and physical note Author [facility] Note Date/Time April 18, 2025 1 0:05pm [facility] Medical Records Department [address] [place] [address] H&P Exam - Hospitalist 04/18/25 1717 MR#: [id number] Acct: [id number] Name: OSCAR WOO Rep #:[id number] : 1950 75 From: Jermaine Beatty jennifer PIERSON PCP: Dr. Kamar Grimes MD Status:ADM IN Location: [facility] IQY254- 1 HPI - General General Date of Admission: 04/18/25 Date of Service: 04/18/25 Chief Complaint: Worsening hyponatremia and falls HPI Narrative OSCAR WOO, is a 75 F who presented to [facility] on 04/18/2025 with worsening hyponatremia and falls at home. Patient lives at homealone. Medical history significant for class II obesity with NEEL, chronic HFpEF, hypertension, anxiety/depression and restless leg syndrome. Patient was recently hospitalized here from 03/18-03/26 for acute combined respiratory failureand undifferentiated shock. Was suspected undiagnosed sleep apnea was contributing to the respiratory failure. She did require 2 L nasal cannula at rest and 3 with exertion on discharge. She did have generalized weakness duringthe hospitalization but was able to be discharged home with home health care. Notably a peer to peer was done for SNF per the patient request but this was denied. Patient had BMP ordered by her PCP drawn on 04/09 that showed sodium 128, chloride 71, bicarb 46, creatinine 1.61 (baseline 0.7-0.8). Her PCP instructed her to discontinue Lasix and losartan but she continue these until 04/15. Repeat BMP was drawn 04/16 that showed sodium 125, chloride 74, bicarb 44, creatinine 1.91. She saw Dr. Reddy with cardiology in the office on 04/16 who recommended the patient continue to hold Lasix and losartan. Family noted that patient has been weaker recently and has had a few falls at home with bruising on her legs, so they brought her to the ED for further evaluation. Repeat BMP today showed sodium 121, potassium 5.4, chloride 73, bicarb 42, creatinine 1.30. Given her worsening hyponatremia and weakness with falls at home, hospitalist was contacted for admission. I saw the patient at bedside in the ED. Patient was fatigued appearing but otherwise laying back comfortably in bed and in no acute distress. She was answering questions appropriately for me. Noted that she has been drinking significant amounts of water recently because she has been so thirsty from the diuretic. She has not taken the diuretic since 04/15 but continues to feel quite thirsty. Notes that she has not felt very hungry and does not eat very much. She does feel quite weak in her legs and does not feel comfortable ambulating without assistance. No other acute concerns currently. Will be admitted for further management. 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 Essential (primary) hypertension Debility Infection and inflammatory reaction due to other [...] mg tablet 10 mg PO QHS INSOMNIA 04/17/25 History bupropion HCl 300 mg 24 hr tablet, 150 mg PO DAILY DEP RESSION 06/11/20 04/18/25 History extended release gabapentin 600 mg tablet 600 mg PO QHS SLEEP 06/11/20 04/17/25 History mirtazapine 15 mg tablet 15 mg PO QHS INSOMNIA 04/17/25 History duloxetine 30 mg capsule,delayed 30 mg PO DAILY DEPRES RAHEEM 09/11/24 04/18/25 History release (Cymbalta) aspirin 81 mg chewable tablet 81 mg PO BID blood thinn er #0 tabs 09/17/24 04/18/25 Rx loperamide 2 mg capsule 2 mg PO Q2H PRN PRN DIARRHEA #0 09/17/24 Unknown Rx caps albuterol sulfate 90 mcg/actuation 2 inh inhalation Q4 H PRN shortness 03/18/25 Unknown History aerosol inhaler of breath or wheezing doxycycline hyclate 100 mg capsule 100 mg PO BID abx 0 03/18/25 04/18/25 History indapamide 2.5 mg tablet 2.5 mg PO DAILY diuretic Unknown History naproxen sodium 220 mg tablet 440 mg PO DAILY PRN pain 03/18/25 Unknown History potassium citrate 10 mEq (1,080 10 meq PO DAILY Unknown History mg) tablet,extended release pramipexole 1 mg tablet 1 mg PO QHS restless leg Unknown History spironolactone 50 mg tablet 50 mg PO DAILY diuretic 04/18/25 History carvedilol 3.125 mg tablet 1.56 mg PO BID bp 04/16/25 04/18/25 History lactobacillus combination no.9 4 4,000 mmu cells PO QD AY GI health 04/16/25 Unknown History billion cell capsule (Adult 50 Plus Probiotic) magnesium aspart,citrate,oxide mg PO supplement (?) Unknown History ondansetron HCl 4 mg tablet 4 mg PO Q8 PRN nausea and vomiting 04/16/25 Unknown History pramipexole 0.5 mg tablet 0.5 mg PO DINNER RLS 10/15/2 5 Unknown History Allergy/AdvReac Type Severity Reaction Status Date / Time Penicillins Allergy Anaphylaxis Verified 04/18/25 13:45 Family History Mother Heart disease Diabetes Brother Heart disease Diabetes Brother Heart disease pacemaker Sister Atrial fibrillation Surgical History History of reverse total replacement [...] household members: none Smoking Status: Former smoker how long ago did patient quit smokin years ago alcohol intake: never substance use type: does not use caffeine: No ROS Constitutional Constitutional: Reports fatigue and weakness; Denies chills or fever(s) Eyes Eyes: Denies change in vision Cardiovascular Cardiovascular: Denies chest pain Respiratory/Chest Respiratory/Chest: Denies shortness of breath at rest Gastrointestinal Gastrointestinal: Denies abdominal pain, nausea or vomiting Genitourinary Genitourinary: Denies dysuria Musculoskeletal Musculoskeletal: Denies arthralgias or myalgias Neurologic Neurologic: Denies dizziness, focal weakness, headache(s), numbness or tingling Vital Signs Vital Signs Vital Signs: 04/18/25 13:42 04/18/25 14:17 04/18/25 14:57 Temperature 98.6 F Temperature Source Oral Pulse Rate 84 83 Pulse Rate [Lying] Pulse Rate [Sitting (for 1 minute prior to obtaining)] Respiratory Rate 30 H 18 Respiratory Effort Normal Non-Labored Respiratory Pattern Normal Blood Pressure 143/78 H 120/85 H Blood Pressure [Lying] Blood Pressure [Sitting (for 1 minute prior to obtaining)] Blood Pressure Mean 99 96 Blood Pressure Mean [Lying] Blood Pressure Mean [Sitting (for 1 minute prior to obtaining)] Pulse Ox 97 95 Oxygen Delivery Method Room Air Nasal Cannula Oxygen Flow Rate (L/min) 2 04/18/25 15:00 04/18/25 15:28 04/18/25 16:00 Temperature Temperature Source Pulse Rate 84 84 Pulse Rate [Lying] 82 Pulse Rate [Sitting (for 1 minute prior to obtaining)] 86 Respiratory Rate 24 H 30 H Respiratory Effort Respiratory Pattern Blood Pressure 140/103 H 151/101 H Blood Pressure [Lying] 150/75 H Blood Pressure [Sitting (for 1 minute prior to obtaining)] 151/101 H Blood Pressure Mean 115 117 Blood Pressure Mean [Lying] 100 Blood Pressure Mean [Sitting (for 1 minute prior to obtaining)] 117 Pulse Ox 97 97 Oxygen Delivery Method Nasal Cannula Nasal Cannula Oxygen Flow Rate (L/min) 2 2 Weight Weight: 106.5 kg Body Mass Index (BMI) 36.8 Physical Exam Const alert, oriented x3 and no apparent distress Constitutional Narrative: Elderly female, class II obesity, fatigued appearing but otherwise sitting back fairly comfortably in bed, answering questions appropriately, in no acute distress. General Appearance: cooperative and comfortable HEENT normocephalic, head/scalp atraumatic, hearing grossly normal bilaterally, nasal mucous membranes and turbinates normal and moist oral mucous membranes Eyes PERRL, EOMs intact bilaterally and conjunctivae normal Neck full ROM Chest inspection of chest normal Resp normal respiratory effort, normal air movement, no use of accessory muscles and clear to auscultation bilaterally Cardio regular rate, regular rhythm, no murmurs and peripheral pulses 2+ throughout GI normal to inspection, nondistended, normoactive bowel sounds, soft to palpation,non-tender and non-distended Back/Spine normal ROM Extremity normal to inspection and no pedal edema Skin no rashes or lesions noted Neuro Neuro Narrative: Generalized lower extremity weakness noted. Psych mental status grossly normal Results Lab / Micro Data 04/18/25 14:05 04/18/25 14:05 Labs: Laboratory Results - last 24 hr 04/18/25 14:05: WBC 10.0, RBC 4.49, Hgb 13.1, Hct 40.0, MCV 89.1, MCH 29.2, MCHC32.8, RDW Std Deviation 45.1 H, RDW Coeff of Terry 13.9, Plt Count 160, MPV 11.7, Immature Gran % (Auto) 0.600, Neut % (Auto) 77.8 H, Lymph % (Auto) 10.9 L, Lyon % (Auto) 8.9, Eos % (Auto) 1.6, Baso % (Auto) 0.2, Absolute Neuts (auto) 7.8 H, Absolute Lymphs (auto) 1.09, Nucleated RBC % 0, Sodium 121 L, Potassium 5.4 H, Chloride 73 L*, Carbon Dioxide 42.5 H, Anion Gap 6, BUN 53 H, Creatinine 1.30 H, Estim Creat Clear Calc 46.24 L, Est GFR (MDRD) Non-Af 43 L, BUN/Creatinine Ratio40.9 H, Glucose 102 H, Calcium 9.7, Total Bilirubin 0.41, AST 50 H, ALT 32, Alkaline Phosphatase 123 H, Total Protein 6.6, Albumin 3.7, Globulin 3.0, Albumin/Globulin Ratio 1.2 Assessment & Plan Assessment/Plan (1) Hyponatremia: PLAN: Plan Patient is a 75-year-old female who presented to [facility] ED on 04/18/2025 with worsening hyponatremia and weakness with falls at home. 1. Hyponatremia ? Admit under inpatient status to PCU. Nephrology consulted. Baseline sodium around 140; remained around 140 during recent complicated hospitalization from 03/18- 03/26. Dropped significantly to sodium 128 on 04/09. Was instructed to discontinue home Lasix on 04/09 but continued until 04/15. Repeat sodium 125 on 04/16 and has continued to worsen to sodium 121 on 04/18. Severe hyperchloremiawith chloride level 71-74 on recent labs. Home Lasix would seem to be a significant contributor. Patient reports drinking significant amounts of water for the past week or two due to feeling dehydrated so this may be contributing. Reports fairly poor food intake over that time. Notably patient was on stress dose steroids for 4 days during recent hospitalization; seems less likely but cannot rule out some degree of adrenal insufficiency. A.m. cortisol level ordered. Serum osmolality, urine osmolality and urine sodium ordered. Will give 1 L of normal saline over 4 hours this evening. Follow-up a.m. BMP. Appreciate further nephrology recommendations. 2. ELVIA with mild hyperkalemia, severe non-anion gap metabolic acidosis, severe hypochloremia ? Nephrology consulted as above. Creatinine 1.30, potassium 5.4 on admit. Baseline creatinine around 0.7-0.8. Bicarb 42. Chloride level 71-74 on recent labs as above. Notably creatinine was 1.6-1.9 on recent labs and has improved to 1.30 with discontinuing home Lasix and losartan. Suspect prerenal etiology due to overdiuresis. Given 1 L of IV fluids on admit as above. Hold home Lasix, losartan, indapamide and spironolactone. Severe NAGMA is presumed secondary to chronic respiratory failure as below. Monitor daily BMP and urine output. 3. 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 Patient with recent complicated hospitalization and required intubation for combined respiratory failure from 03/18-03/20. Was discharged home on 2 L nasal cannula at rest and 3 L with exertion. Has suspected NEEL and recommendation wasfor outpatient workup for this which has not been completed yet. Stable on 2 L nasal cannula at rest in the ED. Monitor. Continue home albuterol inhaler as needed. 4. Chronic HFpEF, hypertension ? Echo during recent hospitalization on 03/19 showed EF 75%, moderate concentric LV hypertrophy, no other concerning findings. Mildly hypertensive to the 140s systolic in the ED. Holding home Lasix, losartan, indapamide and spironolactoneas above. Okay to continue home Coreg. 5. Acute on chronic debility with recent falls ? PT/OT/case management consulted. Patient lives at home alone. She was able to be discharged home with home health care after recent prolonged hospitalization. Has had worsening functional status with small falls over the past week or so per family. Appreciate therapy recommendations. 6. Anxiety, depression, insomnia, restless leg syndrome, neuropathy ? Continue home bupropion, duloxetine, gabapentin, pramipexole, mirtazapine and melatonin. 7. Class II obesity ? BMI 36 on admit. Complicates hospital course and care. DVT prophylaxis: Heparin subcu CODE STATUS: DNR CCA, okay to intubate Expected disposition: TBD Total clinical time spent by myself addressing the patient's medical issues, reviewing all the data, and collaborating with patient's care team: 86 minutes. Charges/Coding Visit Charges Inpatient E&M: 74245 Init Hosp L3 04/18/257 <Electronically signed by Jermaine Simms DO> Cosigner Signature (if applicable): CC: Dr. Jermaine Simms DO; Dr. Kamar Grimes MD~ Signed [facility] Work Phone: Hospital Discharge instructionsAdditional Instructions 1. Please slowly ease back into your regular routine 2. Please use 2 L of oxygen at rest and 3 L with exertion 3. Please follow-up with your primary care physician and asked that a sleep study be ordered as we are highly suspicious that you do have obstructive sleep apnea at baseline 4. Please hold medications as noted below until instructed to reinitiate 5. Please follow-up with Dr. Reddy as previously instructed Date of Discharge: 03/26/25[facility] Work Phone: Hospital Discharge instructionsAdditional Instructions Date of Discharge: 04/23/25[facility] Work Phone: Progress note Author Garfield Pierson [facility] Note Date/Time April 19, 2025 4 :45pm [facility] Medical Records Department [address] [place] [id number] Progress Note - Hospitalist 04/19/251136 MR#: [id number] Acct: [id number] Name: OSCAR WOO Rep #:[id number] : 1950 75 From: Garfield Chi PCP: Dr. Kamar Grimes MD Status:ADM IN Location: ICU [id number] 1-1 Reason for Visit Chief Complaint: Worsening hyponatremia and falls Objective Data Objective Data Vital Signs: Vital Signs Temp Pulse Resp BP Pulse Ox O2 Del Method O2 Flow Rate 98.1 F 68 17 107/67 94 Nasal Cannula 2 04/19/25 08:00 04/19/25 08:00 04/19/25 08:00 04/19/25 08:00 04/19/25 08:00 04/19/25 09:27 04/19/25 09:27 Oxygen Flow Rate (L/min) 2 Oxygen Delivery Method Nasal Cannula Weight: 234 lb 5.622 oz Body Mass Index (BMI) 36.7 Intake & Output: Intake and Output for Last 24 Hours 04/17/25 04/18/25 04/19/25 23:59 23:59 23:59 Intake Total 1200 / 1200 Output Total 0 / 0 Balance 1200 / 1200 Lab / Micro Data 04/19/25 15:05 04/19/25 06:33 Labs: Laboratory Results - last 24 hr 04/18/25 14:05: WBC 10.0, RBC 4.49, Hgb 13.1, Hct 40.0, MCV 89.1, MCH 29.2, MCHC32.8, RDW Std Deviation 45.1 H, RDW Coeff of Terry 13.9, Plt Count 160, MPV 11.7, Immature Gran % (Auto) 0.600, Neut % (Auto) 77.8 H, Lymph % (Auto) 10.9 L, Lyon % (Auto) 8.9, Eos % (Auto) 1.6, Baso % (Auto) 0.2, Absolute Neuts (auto) 7.8 H, Absolute Lymphs (auto) 1.09, Nucleated RBC % 0, Sodium 121 L, Potassium 5.4 H, Chloride 73 L*, Carbon Dioxide 42.5 H, Anion Gap 6, BUN 53 H, Creatinine 1.30 H, Estim Creat Clear Calc 46.24 L, Est GFR (MDRD) Non- Af 43 L, BUN/Creatinine Ratio 40.9 H, Glucose 102 H, Calcium 9.7, Total Bilirubin 0.41, AST 50 H, ALT 32, Alkaline Phosphatase 123 H, Total Protein 6.6,Albumin 3.7, Globulin 3.0, Albumin/Globulin Ratio 1.2 04/18/25 19:42: Serum Osmolality 310 H 04/19/25 03:55: POC Glucose 108 H 04/19/25 06:33: WBC 7.7, RBC 4.11 L, Hgb 12.1, Hct 36.7 L, MCV 89.3, MCH 29.4, MCHC 33.0, RDW Std Deviation 47.1 H, RDW Coeff of Terry 14.3, Plt Count 129 L, MPV10.6, Sodium 123 L, Potassium 4.4, Chloride 78 L, Carbon Dioxide 40.9 H, Anion Gap 4 L, BUN 41 H, Creatinine 1.33 H, Estim Creat Clear Calc 45.15 L, Est GFR (MDRD) Non-Af 41 L, BUN/Creatinine Ratio 30.5 H, Glucose 105 H, Calcium 9.4, Triglycerides 125, Cholesterol 206 H, LDL Cholesterol, Calc 113, VLDL Cholesterol 25, HDL Cholesterol 71, Cholesterol/HDL Ratio 2.89, Cortisol AM Sample 18.40 Physical Exam Narrative Seen and examined Patient feeling dizzy a currently patient is hypotensive with blood pressure systolic 80s a nd states vertigo. She is feeling weak. She was on diuretic for2 weeks. Admitted with fall and hyponatremia. Around noon time she has hypotension, 80/62, 77/55 and patient was given 2 L IV bolus and then his BP was71/42 thereafter 1 L Ringer lactate bolus was ordered and patient transferred to ICU for further care. She has chronic history of fall since she was a kid as she had polio Physical exam General: Alert, Oriented x3, Cooperative HEENT: Atraumatic, PERRLA, EOMI, Normocephalic. Oral: No Gingival or Mucosal Lesions/ Ulcerations Neck: Supple, No JVD, Negative Carotid Bruits Chest wall/Lungs: Air entry diminished in bilateral lung bases. No crepitation/rhonchi Cardiovascular: Hypotension, low volume heart sounds no M/G/R Abdomen: Bowel Sounds Present, Soft, Non Tender, Non-Distended : No dysuria. No renal angle tenderness. No suprapubic tenderness. Extremities: No edema, Capillary Refill Less than 3 Seconds Skin: Bruise on the right knee Musculoskeletal: Weakness of lower extremities. No Tenderness to Palpation of Joints or Extremities Neurological: Cranial nerves II-XII grossly intact, DTR 2+/4. No acute focal neurological deficit. Psych/Mental Status: Flat affect Assessment & Plan Assessment/Plan (1) Hyponatremia: PLAN: Plan Patient is a 75-year-old female who presented to [facility] ED on 04/18/2025 with worsening hyponatremia and weakness with falls at home. 1. Hyponatremia probably due to diuretic which she had for 2 weeks: ? Admit under inpatient status to PCU. Nephrology consulted. Baseline sodium around 140; remained around 140 during recent complicated hospitalization from 03/18- 03/26. Dropped significantly to sodium 128 on 04/09. Was instructed to discontinue home Lasix on 04/09 but continued until 04/15. Repeat sodium 125 on 04/16 and has continued to worsen to sodium 121 on 04/18. Severe hyperchloremiawith chloride level 71-74 on recent labs. Patient was also on stress dose steroid for 2 days during recent hospitalization. She was recently discharged on 03/24/2025 after management for undifferentiated shock, acute hypoxic and hypercarbic respiratory failure which required ventilator. 04/19: Repeat sodium was 123. Improved 3 mEq. Ctc Operator is consulted. Calculated serum iron 267. Measured serum iron 310. Osmolar gap 43. Unclear etiology. The usual differential diagnosis of increased osmolar gap are methanol, ketoacidosis, lactic acidosis, ethylene glycol, propylene glycol, isopropanol. Repeat the serum osmolarity and osmolar gap. VBG ordered. 2. ELVIA with mild hyperkalemia, severe non-anion gap metabolic acidosis, severe hypochloremia ? Nephrology consulted as above. Creatinine 1.30, potassium 5.4 on admit. Baseline creatinine around 0.7-0.8. Bicarb 42. Chloride level 71-74 on recent labs as above. Notably creatinine was 1.6-1.9 on recent labs and has improved to 1.30 with discontinuing home Lasix and losartan. Suspect prerenal etiology due to overdiuresis. 04/19: Continue holding Lasix, losartan, indapamide and spironolactone. SevereNAGMA is presumed secondary to chronic respiratory failure as below. 3. 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 Patient with recent complicated hospitalization and required intubation for combined respiratory failure from 03/18-03/20. Was discharged home on 2 L nasal cannula at rest and 3 L with exertion. Has suspected NEEL and recommendation wasfor outpatient workup for this which has not been completed yet. Stable on 2 L nasal cannula at rest in the ED. Monitor. Continue home albuterol inhaler as needed. 4. Chronic HFpEF, hypertension ? Echo during recent hospitalization on 03/19 showed EF 75%, moderate concentric LV hypertrophy, no other concerning findings. Mildly hypertensive to the 140s systolic in the ED. Holding home Lasix, losartan, indapamide and spironolactoneas above. Okay to continue home Coreg. 5. Acute on chronic debility with recent falls ? PT/OT/case management consulted. Patient lives at home alone. She was able to be discharged home with home health care after recent prolonged hospitalization. Has had worsening functional status with small falls over the past week or so per family. Appreciate therapy recommendations. 6. Anxiety, depression, insomnia, restless leg syndrome, neuropathy ? Continue home bupropion, duloxetine, gabapentin, pramipexole, mirtazapine and melatonin. 7. Class II obesity ? BMI 36 on admit. Complicates hospital course and care. DVT prophylaxis: Heparin subcu CODE STATUS: DNR CCA, okay to intubate Total time of the visit including total time spent in counseling or coordinationof care, (more than 50% of the total time, spent in obtaining medical information from nurses and other ancillary care providers ,explaining to the patient about labs, imaging, diagnosis and management of active complex medical conditions), management of hypotension, severe hyponatremia, review of labs and imaging is 35 minutes. Charges/Coding Visit Charges Inpatient E&M: 50045 Subs Hosp L3 04/19/255 <Electronically signed by Garfield Pierson MD> Cosigner Signature (if applicable): CC: ~ Signed [facility] Work Phone: Proxcslc note Author Keya Basilio [facility] Note Date/Time April 19, 2025 4 :34pm [facility] Medical Records Department [address] [place] [address] Progress Note 04/19/25 163 MR#: [id number] Acct: [id number] Name: OSCAR WOO Rep #:[id number] : 1950 75 From: Keya kendrick MD PCP: Dr. Kamar Grimes MD Status:ADM IN Location: ICU CVICU20 07-03 Progress Note attempted to see earlier. was not in room. chart reviewed. normal baseline sodium. hyponatremia, hypochloremia, likely volume depletion. 04/19/25 1634 <Electronically signed by Keya Basilio MD> Keya Basilio MD Cosigner Signature (if applicable): CC: ~ Signed [facility] Work Phone: Proasraa note Author Garfield [facility] Note Date/Time April 20, 2025 8 :21am [facility] Medical Records Department [address] [place] [address] Progress Note - Hospitalist 04/20/25 0726 MR#: [id number] Acct: [id number] Name: OSCAR WOO Rep #:[id number] : 1950 75 From: Garfield Chi PCP: Dr. Kamar Grimes MD Status:ADM IN Location: ICU CVICU20 07-03 Reason for Visit Chief Complaint: Worsening hyponatremia and falls Objective Data Objective Data Vital Signs: Vital Signs Temp Pulse Resp BP Pulse Ox O2 Del Method O2 Flow Rate 97.9 F 67 23 H 97/63 97 Nasal Cannula 1 04/20/25 04:00 04/20/25 07:00 04/20/25 07:00 04/20/25 07:00 04/20/25 07:03 04/20/25 07:03 04/20/25 07:03 Oxygen Flow Rate (L/min) 1 Oxygen Delivery Method Nasal Cannula Weight: 240 lb 4.862 oz Body Mass Index (BMI) 37.6 Intake & Output: Intake and Output for Last 24 Hours 04/18/25 04/19/25 04/20/25 23:59 23:59 23:59 Intake Total 3300 / 3300 60 / 60 Output Total Balance 3280 / 3280 60 / 60 Lab / Micro Data 04/20/25 04:45 04/20/25 04:45 Labs: Laboratory Results - last 24 hr 04/19/25 12:44: Serum Osmolality 279 L 04/19/25 15:05: WBC 8.2, RBC 3.81 L, Hgb 11.3 L, Hct 34.7 L, MCV 91.1, MCH 29.7,MCHC 32.6, RDW Std Deviation 48.4 H, RDW Coeff of Terry 14.5, Plt Count 121 L, MPV10.7, Immature Gran % (Auto) 0.900, Neut % (Auto) 72.5 H, Lymph % (Auto) 15.6 L,Lyon % (Auto) 7.9, Eos % (Auto) 2.7, Baso % (Auto) 0.4, Absolute Neuts (auto) 6.0, Absolute Lymphs (auto) 1.28, Nucleated RBC % 0, Lactic Acid 1.3, Total Creatine Kinase 65 04/19/25 17:20: Sodium 125 L, Potassium 4.3, Chloride 83 L, Carbon Dioxide 33.7 H, Anion Gap 9, BUN 40 H, Creatinine 1.39 H, Estim Creat Clear Calc 43.20 L, EstGFR (MDRD) Non-Af 39 L, BUN/Creatinine Ratio 28.8 H, Glucose 128 H, Calcium 8.8 04/20/25 04:45: WBC 7.5, RBC 3.81 L, Hgb 11.1 L, Hct 34.4 L, MCV 90.3, MCH 29.1,MCHC 32.3, RDW Std Deviation 47.6 H, RDW Coeff of Terry 14.5, Plt Count 115 L, MPV10.5, Immature Gran % (Auto) 0.900, Neut % (Auto) 73.3 H, Lymph % (Auto) 14.8 L,Lyon % (Auto) 7.7, Eos % (Auto) 2.9, Baso % (Auto) 0.4, Absolute Neuts (auto) 5.5, Absolute Lymphs (auto) 1.11, Nucleated RBC % 0, Sodium 125 L, Potassium 4.0, Chloride 83 L, Carbon Dioxide 36.7 H, Anion Gap 5, BUN 39 H, Creatinine 1.31 H, Estim Creat Clear Calc 46.46 L, Est GFR (MDRD) Non-Af 42 L, BUN/Creatinine Ratio 29.4 H, Glucose 113 H, Calcium 9.0 Micro: Microbiology 04/19/25 16:10 Nasal Secretion MRSA (PCR) - Final 04/19/25 16:10 Mucosa - Nose SARS-CoV-2, Influenza & RSV (PCR) - Final ABG Data ABG results: ABG 04/19/25 17:28 Specimen Type MARICRUZ Sample Site Not entered O2 % 2.0 VBG pH 7.48 H VBG pO2 133 H VBG HCO3 33 H VBG Total CO2 34 H VBG O2 Sat (Calc) 99 H VBG Base Excess 10 H POC Mix VBG pCO2 Pt Tmp 44.6 O2 Delivery Device Cannula Radiography Diagnostic Testing: Radiology Impression Chest X-Ray 04/19/25 14:50 IMPRESSION: Mild pulmonary vascular congestion and question interstitial edema. No focal consolidation. Mild cardiomegaly. Reading Location: [facility] Physical Exam Narrative Seen and examined Patient feeling mildly confused last night. Was dizzy but feeling much better. Eating her breakfast. Denies chest pain or shortness of breath. Blood pressure is improved, systolic in 100s. Remembers month ER day. She has chronic history of fall since she was a kid as she had polio Physical exam General: Awake, intermittent confusion. Oriented x3, Cooperative HEENT: Atraumatic, PERRLA, EOMI, Normocephalic. Oral: No Gingival or Mucosal Lesions/ Ulcerations Neck: Supple, No JVD, Negative Carotid Bruits Chest wall/Lungs: Air entry diminished in bilateral lung bases. Mild occasional crepitation in left lung base Cardiovascular: Low BP. No M/G/R Abdomen: Bowel Sounds Present, Soft, Non Tender, Non-Distended : No dysuria. No renal angle tenderness. No suprapubic tenderness. Extremities: No edema, Capillary Refill Less than 3 Seconds Skin: Bruise on the right knee Musculoskeletal: Weakness of lower extremities, 4+/5 at knees and hip joints. No Tenderness to Palpation of Joints or Extremities Neurological: Cranial nerves II-XII grossly intact, DTR 2+/4. No acute focal neurological deficit. Psych/Mental Status: Flat affect Assessment & Plan Assessment/Plan (1) Hyponatremia: PLAN: Plan Patient is a 75-year-old female who presented to [facility] ED on 04/18/2025 with worsening hyponatremia and weakness with falls at home. 1. Hyponatremia probably due to diuretic which she had for 2 weeks: ? Admit under inpatient status to PCU. Nephrology consulted. Baseline sodium around 140; remained around 140 during recent complicated hospitalization from 03/18- 03/26. Dropped significantly to sodium 128 on 04/09. Was instructed to discontinue home Lasix on 04/09 but continued until 04/15. Repeat sodium 125 on 04/16 and has continued to worsen to sodium 121 on 04/18. Severe hyperchloremiawith chloride level 71-74 on recent labs. Patient was also on stress dose steroid for 2 days during recent hospitalization. She was recently discharged on 03/24/2025 after management for undifferentiated shock, acute hypoxic and hypercarbic respiratory failure which required ventilator. 04/19: Repeat sodium was 123. Improved 3 mEq. Ctc Operator is consulted. Calculated serum iron 267. Measured serum iron 310. Osmolar gap 43. Unclear etiology. The usual differential diagnosis of increased osmolar gap are methanol, ketoacidosis, lactic acidosis, ethylene glycol, propylene glycol, isopropanol. Repeat the serum osmolarity and osmolar gap. VBG ordered. 04/20: VBG 7.48/mixed pCO2 44, PaO2 133/bicarb 33/34. Bicarb and BMP was also 33.7. Anion gap 9. Sodium is still low 125 x 2. CPK 25. Lactic acid 1.3. Serum osmolality 279 which seems more appropriate than earlier reported 310. Calculated on repeat BMP 04/19 271, osmolar gap 8.0 which is in normal range.UA negative, hCG 1.015, protein 30. Ctc Operator on board 2. ELVIA with mild hyperkalemia, severe non-anion gap metabolic acidosis, severe hypochloremia ? Nephrology consulted as above. Creatinine 1.30, potassium 5.4 on admit. Baseline creatinine around 0.7-0.8. Bicarb 42. Chloride level 71-74 on recent labs as above. Notably creatinine was 1.6-1.9 on recent labs and has improved to 1.30 with discontinuing home Lasix and losartan. Suspect prerenal etiology due to overdiuresis. 04/19: Continue holding Lasix, losartan, indapamide and spironolactone. SevereNAGMA is presumed secondary to chronic respiratory failure as below. 04/20: Creatinine 1.31. BUN 39, BUN/creatinine ratio 29.4 still high 3. 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 Patient with recent complicated hospitalization and required intubation for combined respiratory failure from 03/18-03/20. Was discharged home on 2 L nasal cannula at rest and 3 L with exertion. Has suspected NEEL and recommendation wasfor outpatient workup for this which has not been completed yet. Stable on 2 L nasal cannula at rest in the ED. Monitor. Continue home albuterol inhaler as needed. 04/20: Rib chest x-ray reviewed shows mild pulmonary vascular congestion and bibasilar atelectasis but no obvious shortness of breath. Continue incentive spirometry and PEP for 1 week 4. Chronic HFpEF, hypertension ? Echo during recent hospitalization on 03/19 showed EF 75%, moderate concentric LV hypertrophy, no other concerning findings. Mildly hypertensive to the 140s systolic in the ED. Holding home Lasix, losartan, indapamide and spironolactoneas above. Okay to continue home Coreg. 5. Acute on chronic debility with recent falls ? PT/OT/case management consulted. Patient lives at home alone. She was able to be discharged home with home health care after recent prolonged hospitalization. Has had worsening functional status with small falls over the past week or so per family. Appreciate therapy recommendations. 6. Anxiety, depression, insomnia, restless leg syndrome, neuropathy ? Continue home bupropion, duloxetine, gabapentin, pramipexole, mirtazapine and melatonin. 7. Class II obesity ? BMI 36 on admit. Complicates hospital course and care. DVT prophylaxis: Heparin subcu CODE STATUS: DNR CCA, okay to intubate Total time of the visit including total time spent in counseling or coordinationof care, (more than 50% of the total time, spent in obtaining medical information from nurses and other ancillary care providers ,explaining to the patient about labs, imaging, diagnosis and management of active complex medical conditions), management of hypotension, severe hyponatremia, review of labs and imaging is 35 minutes. Charges/Coding Visit Charges Inpatient E&M: 57842 Subs Hosp L3 04/20/25 0821 <Electronically signed by Garfield Pierson MD> Cosigner Signature (if applicable): CC: ~ Signed [facility] Work Phone: Progress note Author Reginaldo Fatima [facility] Note Date/Time April 20, 2025 2 :29pm [facility] Medical Records Department [address] [place] [id number] Progress Note - Trimmer Machine Operator 04/20/25 1428 MR#: [id number] Acct: [id number] Name: OSCAR WOO Rep #:[id number] : 1950 75 From: Reginaldo Fatima MD PCP: Dr. Kamar Grimes MD Status:ADM IN Location: ICU CVICU20 1-1 Objective Data Objective Data Vital Signs: Vital Signs Last response 3 Temperature 36.6 C 04/20/25 11:30 Temperature Source Temporal 04/20/25 11:30 Pulse Rate 80 04/20/25 11:30 Pulse Strength Weak (1+) 04/20/25 10:00 Respiratory Rate 20 H 04/20/25 11:30 Respiratory Effort Normal, Non-Labored 04/19/25 22:00 Respiratory Depth Normal 04/19/25 22:00 Respiratory Pattern Normal 04/19/25 22:00 Blood Pressure 113/74 04/20/25 11:30 Blood Pressure Mean 87 04/20/25 11:30 Blood Pressure Source Monitor 04/20/25 11:30 Blood Pressure Position Sitting 04/20/25 11:30 Blood Pressure Location Left Arm 04/20/25 11:30 Pulse Ox 100 04/20/25 11:30 Oxygen Delivery Method Nasal Cannula 04/20/25 13:35 Oxygen Flow Rate (L/min) 2 04/20/25 13:35 I&O: I&O Last 24 Hours 3 04/19/25 04/20/25 04/20/25 23:59 11:59 23:59 Intake Total 2100 / 3300 60 / 300 240 / 300 Output Total 20 / 20 Balance 2080 / 3280 60 / 300 240 / 300 I&O: Total Stay 3 04/18/25 13:41 thru 04/20/25 12:00 Intake Total 3600 Output Total 20 Balance 3580 Current Meds Ordered / Administered: Current meds ordered / Administered 3 Generic Name Dose Route Start Last Admin Trade Name Freq PRN Reason Stop Dose Admin Acetaminophen 650 mg 04/18/25 19:57 Acetaminophen 325 Mg Tablet PO Q6H PRN PRN Pain 1-10 Or Fever>100.7 Albuterol Sulfate 2.5 mg 04/18/25 20:10 Albuterol 2.5 Mg/3 Ml Vial.Neb. INHALATION Q4H PRN shortness of breath or wheezing Aspirin 81 mg 04/18/25 22:00 04/20/25 08:20 Aspirin 81 Mg Tab.Chew PO 81 mg BID KACEY Administration Bupropion HCl 150 mg 04/19/25 10:00 04/20/25 08:21 Bupropion (Xl) 150 Mg Tablet.Xl PO 150 mg DAILY KACEY Administration Carvedilol 3.125 mg 04/18/25 22:00 04/20/25 08:20 Carvedilol 3.125 Mg Tablet PO 3.125 mg BID KACEY Administration Duloxetine HCl 30 mg 04/19/25 10:00 04/20/25 08:21 Duloxetine Hcl 30 Mg Capsule PO 30 mg DAILY KACEY Administration Gabapentin 600 mg 04/18/25 22:00 04/19/25 21:53 Gabapentin 600 Mg Tablet PO 600 mg QHS KACEY Administration Heparin Sodium (Porcine) 5,000 unit 04/18/25 22:00 04/20/25 08:21 Heparin Injection (Vial) 5,000 Unit/Ml Vial SC 5,000 unit Q12 KACEY Administration Sodium Chloride 250 mls @ 15 mls/hr 04/19/25 02:16 IV .[id number] PRN Saline Flush Sodium Chloride 250 mls @ 15 mls/hr 04/19/25 02:16 IV .[id number] PRN Additional IVPB Infusion Melatonin 10 mg 04/18/25 22:00 04/19/25 21:46 Melatonin 10 Mg Tablet PO 10 mg QHS KACEY Administration Midodrine 10 mg 04/20/25 09:00 04/20/25 11:47 Midodrine Hcl 5 Mg Tablet PO Not Given TIDCM KACEY Mirtazapine 15 mg 04/18/25 22:00 04/19/25 21:47 Mirtazapine 15 Mg Tablet PO 15 mg QHS KACEY Administration Ondansetron HCl 4 mg 04/18/25 19:57 Ondansetron 4 Mg/2 Ml Vial IV Q8H PRN PRN NAUSEA/VOMITING Pramipexole Dihydrochloride 0.5 mg 04/18/25 19:57 04/19/25 16:34 Pramipexole Di-Hcl 0.5 Mg Tablet PO 0.5 mg DINNER KACEY Administration Senna/Docusate Sodium 2 tablet 04/19/25 22:00 04/20/25 08:18 Senna/Docusate Sodium 1 Tablet PO Not Given BID KACEY Sodium Chloride 10 - 40 ml 04/19/25 02:16 04/20/25 04:50 0.9% Saline Lock 10 Ml Syringe IV 40 ml UD PRN Administration SALINE FLUSH Sodium Chloride 10 - 40 ml 04/19/25 21:06 0.9% Saline Lock 10 Ml Syringe IV UD PRN SALINE FLUSH Lab / Micro Data Attestation: I reviewed the patient's lab results. 04/20/25 04:45 04/20/25 04:45 Labs: Laboratory Results - last 24 hr 04/19/25 15:05: WBC 8.2, RBC 3.81 L, Hgb 11.3 L, Hct 34.7 L, MCV 91.1, MCH 29.7,MCHC 32.6, RDW Std Deviation 48.4 H, RDW Coeff of Terry 14.5, Plt Count 121 L, MPV10.7, Immature Gran % (Auto) 0.900, Neut % (Auto) 72.5 H, Lymph % (Auto) 15.6 L,Lyon % (Auto) 7.9, Eos % (Auto) 2.7, Baso % (Auto) 0.4, Absolute Neuts (auto) 6.0, Absolute Lymphs (auto) 1.28, Nucleated RBC % 0, Lactic Acid 1.3, Total Creatine Kinase 65 04/19/25 17:20: Sodium 125 L, Potassium 4.3, Chloride 83 L, Carbon Dioxide 33.7 H, Anion Gap 9, BUN 40 H, Creatinine 1.39 H, Estim Creat Clear Calc 43.20 L, EstGFR (MDRD) Non-Af 39 L, BUN/Creatinine Ratio 28.8 H, Glucose 128 H, Calcium 8.8 04/20/25 04:45: WBC 7.5, RBC 3.81 L, Hgb 11.1 L, Hct 34.4 L, MCV 90.3, MCH 29.1,MCHC 32.3, RDW Std Deviation 47.6 H, RDW Coeff of Terry 14.5, Plt Count 115 L, MPV10.5, Immature Gran % (Auto) 0.900, Neut % (Auto) 73.3 H, Lymph % (Auto) 14.8 L,Lyon % (Auto) 7.7, Eos % (Auto) 2.9, Baso % (Auto) 0.4, Absolute Neuts (auto) 5.5, Absolute Lymphs (auto) 1.11, Nucleated RBC % 0, Sodium 125 L, Potassium 4.0, Chloride 83 L, Carbon Dioxide 36.7 H, Anion Gap 5, BUN 39 H, Creatinine 1.31 H, Estim Creat Clear Calc 46.46 L, Est GFR (MDRD) Non-Af 42 L, BUN/Creatinine Ratio 29.4 H, Glucose 113 H, Calcium 9.0 04/20/25 09:35: Urine Color Yellow, Urine Clarity Sl. Cloudy, Urine pH 6.0, Ur Specific [place] 1.010, Urine Protein 30 H, Urine Glucose (UA) 250 H, Urine Ketones Negative, Urine Occult Blood Negative, Urine Nitrite Negative, Urine Bilirubin Negative, Urine Urobilinogen Normal, Ur Leukocyte Esterase Negative, Urine RBC 0 SEEN, Urine WBC 0 SEEN, Ur Squamous Epith Cells 0-5 SEEN, Ur Transition Epith Cell 0-5 SEEN, Urine Bacteria 0 SEEN, Urine Mucus 0 SEEN, UrineOsmolality 263 04/20/25 09:35: Urine Osmolality Cancelled, Ur Random Sodium 34, Urine Opiates Screen NEGATIVE, U Buprenorphine Qual NEGATIVE, Ur Oxycodone Screen NEGATIVE, Urine Methadone Screen NEGATIVE, Urine Fentanyl Screen NEGATIVE, Ur BarbituratesScreen NEGATIVE, Ur Phencyclidine Scrn NEGATIVE, Ur Amphetamines Screen NEGATIVE, U Benzodiazepines Scrn NEGATIVE, Urine Cocaine Screen NEGATIVE, U Cannabinoids Screen NEGATIVE Micro: Microbiology 04/20/25 09:35 Urine, Clean Catch Legionella Antigen - Final 04/20/25 09:35 Urine, Clean Catch Streptococcus pneumoniae Antigen (M - Final 04/19/25 16:10 Nasal Secretion MRSA (PCR) - Final 04/19/25 16:10 Mucosa - Nose SARS-CoV-2, Influenza & RSV (PCR) - Final ABG Data ABG results: ABG 04/19/25 17:28 Specimen Type MARICRUZ Sample Site Not entered O2 % 2.0 VBG pH 7.48 H VBG pO2 133 H VBG HCO3 33 H VBG Total CO2 34 H VBG O2 Sat (Calc) 99 H VBG Base Excess 10 H POC Mix VBG pCO2 Pt Tmp 44.6 O2 Delivery Device Cannula Imaging Radiology Impression Chest X-Ray 04/19/25 14:50 IMPRESSION: Mild pulmonary vascular congestion and question interstitial edema. No focal consolidation. Mild cardiomegaly. Reading Location: [facility] Assessment and Plan . Assessment and plan: 1. hypotension, almost surely volume related due to fluid shifts, resolving quickly with IVF administration - no suggestion of sepsis or other condition warranting more aggressive management at present - resolved 2. hyponatremia, probably hypovolemic, resolving Will sign off, please call with future questions Critical Care Time: The entirety of this encounter was done via Telemedicine Physical Exam Const alert, oriented x3 and no apparent distress General Appearance: cooperative Subjective Subjective Has done well clinically, hemodynamics are satisfactory and her status downgraded 04/20/25 1429 <Electronically signed by Reginaldo Fatima MD> Cosigner Signature (if applicable): CC: ~ Signed [facility] Work Phone: Progress note Author Garfield Pierson [facility] Note Date/Time April 21, 2025 8 :39am [facility] Medical Records Department [address] [place] [address] [place] [address] Progress Note - Hospitalist 04/21/25 0833 MR#: [id number] Acct: [id number] Name: OSCAR WOO Rep #:[id number] : 1950 75 From: Garfield Chi PCP: Dr. Kamar Grimes MD Status:ADM IN Location: ICU [place] [address] 1-1 Reason for Visit Chief Complaint: Worsening hyponatremia and falls Objective Data Objective Data Vital Signs: Vital Signs Temp Pulse Resp BP Pulse Ox O2 Del Method O2 Flow Rate 98.4 F 82 22 H 121/58 H 97 Nasal Cannula 2 04/21/25 04:00 04/21/25 04:00 04/21/25 04:00 04/21/25 04:00 04/21/25 08:31 04/21/25 08:31 04/21/25 08:31 Oxygen Flow Rate (L/min) 2 Oxygen Delivery Method Nasal Cannula Weight: 239 lb 13.807 oz Body Mass Index (BMI) 37.5 Intake & Output: Intake and Output for Last 24 Hours 04/19/25 04/20/25 04/21/25 23:59 23:59 23:59 Intake Total 3300 / 3300 660 / 660 1240 / 1240 Output Total 300 / 300 Balance 3280 / 3280 360 / 360 1240 / 1240 Lab / Micro Data 04/21/25 04:00 04/21/25 04:00 Labs: Laboratory Results - last 24 hr 04/20/25 09:35: Urine Color Yellow, Urine Clarity Sl. Cloudy, Urine pH 6.0, Ur Specific [place] 1.010, Urine Protein 30 H, Urine Glucose (UA) 250 H, Urine Ketones Negative, Urine Occult Blood Negative, Urine Nitrite Negative, Urine Bilirubin Negative, Urine Urobilinogen Normal, Ur Leukocyte Esterase Negative, Urine RBC 0 SEEN, Urine WBC 0 SEEN, Ur Squamous Epith Cells 0-5 SEEN, Ur Transition Epith Cell 0-5 SEEN, Urine Bacteria 0 SEEN, Urine Mucus 0 SEEN, UrineOsmolality 263 04/20/25 09:35: Urine Osmolality Cancelled, Ur Random Sodium 34, Urine Opiates Screen NEGATIVE, U Buprenorphine Qual NEGATIVE, Ur Oxycodone Screen NEGATIVE, Urine Methadone Screen NEGATIVE, Urine Fentanyl Screen NEGATIVE, Ur BarbituratesScreen NEGATIVE, Ur Phencyclidine Scrn NEGATIVE, Ur Amphetamines Screen NEGATIVE, U Benzodiazepines Scrn NEGATIVE, Urine Cocaine Screen NEGATIVE, U Cannabinoids Screen NEGATIVE 04/21/25 04:00: WBC 7.6, RBC 3.91 L, Hgb 11.5 L, Hct 35.2 L, MCV 90.0, MCH 29.4,MCHC 32.7, RDW Std Deviation 46.6 H, RDW Coeff of Terry 14.6, Plt Count 113 L, MPV10.7, Immature Gran % (Auto) 1.100 H, Neut % (Auto) 74.4 H, Lymph % (Auto) 13.3 L, Lyon % (Auto) 8.1, Eos % (Auto) 2.6, Baso % (Auto) 0.5, Absolute Neuts (auto)5.7, Absolute Lymphs (auto) 1.01, Nucleated RBC % 0, Sodium 127 L, Potassium 4.2, Chloride 85 L, Carbon Dioxide 37.5 H, Anion Gap 5, BUN 33 H, Creatinine 1.20, Estim Creat Clear Calc 50.67, Est GFR (MDRD) Non-Af 47 L, BUN/Creatinine Ratio 27.3 H, Glucose 130 H, Calcium 9.0 Micro: Microbiology 04/20/25 09:35 Urine, Clean Catch Legionella Antigen - Final 04/20/25 09:35 Urine, Clean Catch Streptococcus pneumoniae Antigen (M - Final 04/19/25 16:10 Nasal Secretion MRSA (PCR) - Final 04/19/25 16:10 Mucosa - Nose SARS-CoV-2, Influenza & RSV (PCR) - Final Physical Exam Narrative Seen and examined Patient overall feeling good. Patient concerned about antibiotic which was started for left shoulder infection by Dr. Andrade. Doxycycline resumed probably it was held because of confusion and not safe p.o. Blood pressure is good currently systolic 150s Remembers month ER day. She has chronic history of fall since she was a kid as she had polio Physical exam General: Awake, intermittent confusion. Oriented x3, Cooperative HEENT: Atraumatic, PERRLA, EOMI, Normocephalic. Oral: No Gingival or Mucosal Lesions/ Ulcerations Neck: Supple, No JVD, Negative Carotid Bruits Chest wall/Lungs: Air entry diminished in bilateral lung bases. Mild occasional crepitation in left lung base Cardiovascular: Low BP. No M/G/R Abdomen: Bowel Sounds Present, Soft, Non Tender, Non-Distended : No dysuria. No renal angle tenderness. No suprapubic tenderness. Extremities: No edema, Capillary Refill Less than 3 Seconds Skin: Bruise on the right knee Musculoskeletal: Weakness of lower extremities, 4+/5 at knees and hip joints. Left shoulder prosthetic joint. No Tenderness to Palpation of Joints or Extremities Neurological: Cranial nerves II-XII grossly intact, DTR 2+/4. No acute focal neurological deficit. Psych/Mental Status: Flat affect Assessment & Plan Assessment/Plan (1) Hyponatremia: PLAN: Plan Patient is a 75-year-old female who presented to [facility] ED on 04/18/2025 with worsening hyponatremia and weakness with falls at home. 1. Hyponatremia probably due to diuretic which she had for 2 weeks: ? Admit under inpatient status to PCU. Nephrology consulted. Baseline sodium around 140; remained around 140 during recent complicated hospitalization from 03/18- 03/26. Dropped significantly to sodium 128 on 04/09. Was instructed to discontinue home Lasix on 04/09 but continued until 04/15. Repeat sodium 125 on 04/16 and has continued to worsen to sodium 121 on 04/18. Severe hyperchloremiawith chloride level 71-74 on recent labs. Patient was also on stress dose steroid for 2 days during recent hospitalization. She was recently discharged on 03/24/2025 after management for undifferentiated shock, acute hypoxic and hypercarbic respiratory failure which required ventilator. 04/19: Repeat sodium was 123. Improved 3 mEq. Ctc Operator is consulted. Calculated serum iron 267. Measured serum iron 310. Osmolar gap 43. Unclear etiology. The usual differential diagnosis of increased osmolar gap are methanol, ketoacidosis, lactic acidosis, ethylene glycol, propylene glycol, isopropanol. Repeat the serum osmolarity and osmolar gap. VBG ordered. 04/20: VBG 7.48/mixed pCO2 44, PaO2 133/bicarb 33/34. Bicarb and BMP was also 33.7. Anion gap 9. Sodium is still low 125 x 2. CPK 25. Lactic acid 1.3. Serum osmolality 279 which seems more appropriate than earlier reported 310. Calculated on repeat BMP 04/19 271, osmolar gap 8.0 which is in normal range.UA negative, hCG 1.015, protein 30. Ctc Operator on board 04/21: Serum sodium improved 127 today. K4.2. Bicarb of 37.5. Anion gap 5. Osmolar gap was normal as mentioned above. 2. ELVIA with mild hyperkalemia, severe non-anion gap metabolic acidosis, severe hypochloremia ? Nephrology consulted as above. Creatinine 1.30, potassium 5.4 on admit. Baseline creatinine around 0.7-0.8. Bicarb 42. Chloride level 71-74 on recent labs as above. Notably creatinine was 1.6-1.9 on recent labs and has improved to 1.30 with discontinuing home Lasix and losartan. Suspect prerenal etiology due to overdiuresis. 04/19: Continue holding Lasix, losartan, indapamide and spironolactone. SevereNAGMA is presumed secondary to chronic respiratory failure as below. 04/20: Creatinine 1.31. BUN 39, BUN/creatinine ratio 29.4 still high 3. 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 Patient with recent complicated hospitalization and required intubation for combined respiratory failure from 03/18-03/20. Was discharged home on 2 L nasal cannula at rest and 3 L with exertion. Has suspected NEEL and recommendation wasfor outpatient workup for this which has not been completed yet. Stable on 2 L nasal cannula at rest in the ED. Monitor. Continue home albuterol inhaler as needed. 04/20: Rib chest x-ray reviewed shows mild pulmonary vascular congestion and bibasilar atelectasis but no obvious shortness of breath. Continue incentive spirometry and PEP for 1 week 4. Chronic HFpEF, hypertension ? Echo during recent hospitalization on 03/19 showed EF 75%, moderate concentric LV hypertrophy, no other concerning findings. Mildly hypertensive to the 140s systolic in the ED. Holding home Lasix, losartan, indapamide and spironolactoneas above. Okay to continue home Coreg. 5. Acute on chronic debility with recent falls ? PT/OT/case management consulted. Patient lives at home alone. She was able to be discharged home with home health care after recent prolonged hospitalization. Has had worsening functional status with small falls over the past week or so per family. Appreciate therapy recommendations. 6. Anxiety, depression, insomnia, restless leg syndrome, neuropathy ? Continue home bupropion, duloxetine, gabapentin, pramipexole, mirtazapine and melatonin. 7. Class II obesity ? BMI 36 on admit. Complicates hospital course and care. 8. 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 No evidence of infection. Patient on Dr. Twice daily and continued. Patient also denied prior history of DVT but Sixto Trinh wanted venous duplex of the lower extremities. Venous duplex ordered DVT prophylaxis: Heparin subcu CODE STATUS: DNR CCA, okay to intubate Microbiology Past 72 Hours 04/20/25 09:35 Urine, Clean Catch Legionella Antigen - Final 04/20/25 09:35 Urine, Clean Catch Streptococcus pneumoniae Antigen (M - Final 04/19/25 16:10 Nasal Secretion MRSA (PCR) - Final 04/19/25 16:10 Mucosa - Nose SARS-CoV-2, Influenza & RSV (PCR) - Final Laboratory Results 04/20/25 09:35: Urine Color Yellow, Urine Clarity Sl. Cloudy, Urine pH 6.0, Ur Specific [place] 1.010, Urine Protein 30 H, Urine Glucose (UA) 250 H, Urine Ketones Negative, Urine Occult Blood Negative, Urine Nitrite Negative, Urine Bilirubin Negative, Urine Urobilinogen Normal, Ur Leukocyte Esterase Negative, Urine RBC 0 SEEN, Urine WBC 0 SEEN, Ur Squamous Epith Cells 0-5 SEEN, Ur Transition Epith Cell 0-5 SEEN, Urine Bacteria 0 SEEN, Urine Mucus 0 SEEN, UrineOsmolality 263 04/20/25 09:35: Urine Osmolality Cancelled, Ur Random Sodium 34, Urine Opiates Screen NEGATIVE, U Buprenorphine Qual NEGATIVE, Ur Oxycodone Screen NEGATIVE, Urine Methadone Screen NEGATIVE, Urine Fentanyl Screen NEGATIVE, Ur BarbituratesScreen NEGATIVE, Ur Phencyclidine Scrn NEGATIVE, Ur Amphetamines Screen NEGATIVE, U Benzodiazepines Scrn NEGATIVE, Urine Cocaine Screen NEGATIVE, U Cannabinoids Screen NEGATIVE 04/21/25 04:00: WBC 7.6, RBC 3.91 L, Hgb 11.5 L, Hct 35.2 L, MCV 90.0, MCH 29.4,MCHC 32.7, RDW Std Deviation 46.6 H, RDW Coeff of Terry 14.6, Plt Count 113 L, MPV10.7, Immature Gran % (Auto) 1.100 H, Neut % (Auto) 74.4 H, Lymph % (Auto) 13.3 L, Lyon % (Auto) 8.1, Eos % (Auto) 2.6, Baso % (Auto) 0.5, Absolute Neuts (auto)5.7, Absolute Lymphs (auto) 1.01, Nucleated RBC % 0, Sodium 127 L, Potassium 4.2, Chloride 85 L, Carbon Dioxide 37.5 H, Anion Gap 5, BUN 33 H, Creatinine 1.20, Estim Creat Clear Calc 50.67, Est GFR (MDRD) Non-Af 47 L, BUN/Creatinine Ratio 27.3 H, Glucose 130 H, Calcium 9.0 Charges/Coding Visit Charges Inpatient E&M: 33026 Subs Hosp L2 04/21/25 0839 <Electronically signed by Garfield Pierson MD> Cosigner Signature (if applicable): CC: ~ Signed [facility] Work Phone: Progress note Author Keya Basilio [facility] Note Date/Time April 23, 2025 6 :52pm [facility] Medical Records Department [address] [place] [id number] Progress Note - Nephrology 04/22/25 1725 MR#: [id number] Acct: [id number] Name: OSCAR WOO Rep #:[id number] : 1950 75 From: Keya kendrick MD PCP: Dr. Kamar Grimes MD Status:ADM IN Location: [place] [address] Subjective Subjective no new events Objective Data Objective Data Vital Signs: Vital Signs Temp Pulse Resp BP Pulse Ox O2 Del Method O2 Flow Rate 98.7 F 99 20 H 131/75 H 97 Nasal Cannula 2 04/22/25 16:17 04/22/25 16:17 04/22/25 16:17 04/22/25 16:17 04/22/25 16:17 04/22/25 16:17 04/22/25 16:17 Oxygen Flow Rate (L/min) 2 Oxygen Delivery Method Nasal Cannula Weight: 108.8 kg Body Mass Index (BMI) 37.5 Intake & Output: Intake and Output for Last 24 Hours 04/20/25 04/21/25 04/22/25 23:59 23:59 23:59 Intake Total 660 / 660 1939 Output Total 300 / 300 Balance 360 / 360 1939 Lab / Micro Data 04/22/25 05:20 04/22/25 05:20 Labs: Laboratory Results - last 24 hr 04/22/25 05:20: WBC 6.2, RBC 4.21, Hgb 12.3, Hct 38.2, MCV 90.7, MCH 29.2, MCHC 32.2, RDW Std Deviation 47.8 H, RDW Coeff of Terry 14.6, Plt Count 115 L, MPV 10.6, Immature Gran % (Auto) 1.800 H, Neut % (Auto) 66.8, Lymph % (Auto) 18.2 L,Lyon % (Auto) 8.7, Eos % (Auto) 3.7, Baso % (Auto) 0.8, Absolute Neuts (auto) 4.2, Absolute Lymphs (auto) 1.13, Nucleated RBC % 0, Sodium 134, Potassium 4.7, Chloride 88 L, Carbon Dioxide 40.0 H, Anion Gap 6, BUN 28 H, Creatinine 1.12, Estim Creat Clear Calc 54.29, Est GFR (MDRD) Non-Af 51 L, BUN/Creatinine Ratio 25.4 H, Glucose 102 H, Calcium 9.7 Micro: Microbiology 04/19/25 15:10 Blood Culture (Wb) #2 - Right Hand Blood Culture - Preliminary No growth in 48 hours. 04/19/25 15:05 Blood Culture (Wb) - Anticubital Right Blood Culture - Preliminary No growth in 48 hours. 04/20/25 09:35 Urine, Clean Catch Urine Culture - Final Mixed Gram Pos & Gram Neg Org 04/20/25 09:35 Urine, Clean Catch Legionella Antigen - Final 04/20/25 09:35 Urine, Clean Catch Streptococcus pneumoniae Antigen (M - Final 04/19/25 16:10 Nasal Secretion MRSA (PCR) - Final 04/19/25 16:10 Mucosa - Nose SARS-CoV-2, Influenza & RSV (PCR) - Final Radiography Diagnostic Testing: Radiology Impression Venous Doppler Study 04/21/25 08:33 Interpretation Summary Deep veins of the lower extremities are bilaterally patent and compressible segmentally. There is no evidence of deep vein thrombosis on either side. Valvular competence appears intact within the proximal deep venous systems bilaterally. The great saphenous veins appear bilaterally patent and compressible segmentally. Ordering Physician: Garfield Pierson Referring Physician: Sixto Trinh Performed By: Dada Andujar RVT Physical Exam Narrative Alert awake oriented x 3 no obvious distress no pallor no icterus no JVD s1s2 no murmurs lungs clear abdomen soft no organomegaly no edema no cyanosis Assessment & Plan Assessment/Plan (1) Hyponatremia: PLAN: sodium and chloride were normal last month. consistent with hypovolemic hyponatremia and contraction alkalosis. Sodium is now better. Not much peripheral edema. Breathing is back to baseline. Bicarbonate is still on the higher side. On review of her previous lab data, bicarbonate levels at baselineare around 30-34. Hold off on Diamox for now. Discussed with hospitalist. Patient asking about discharge plans. From nephrology standpoint, she can be discharged. (2) Hypochloremic alkalosis: 04/22/251724 <Electronically signed by Keya Basilio MD> Cosigner Signature (if applicable): CC: ~ Signed [facility] Work Phone: Progress note Author Garfield Pierson [facility] Note Date/Time April 22, 2025 5 :33pm [facility] Medical Records Department [address] [place] [address] Progress Note - Hospitalist 04/22/251728 MR#: [id number] Acct: [id number] Name: OSCAR WOO Rep #:[id number] : 1950 75 From: Gar[place] Chi PCP: Dr. Kamar Grimes MD Status:ADM IN Location: [place] [address] Reason for Visit Chief Complaint: Worsening hyponatremia and falls Objective Data Objective Data Vital Signs: Vital Signs Temp Pulse Resp BP Pulse Ox O2 Del Method O2 Flow Rate 98.7 F 99 20 H 131/75 H 97 Nasal Cannula 2 04/22/25 16:17 04/22/25 16:17 04/22/25 16:17 04/22/25 16:17 04/22/25 16:17 04/22/25 16:17 04/22/25 16:17 Oxygen Flow Rate (L/min) 2 Oxygen Delivery Method Nasal Cannula Weight: 239 lb 13.807 oz Body Mass Index (BMI) 37.5 Intake & Output: Intake and Output for Last 24 Hours 04/20/25 04/21/25 04/22/25 23:59 23:59 23:59 Intake Total 660 / 660 1939 Output Total 300 / 300 Balance 360 / 360 1939 Lab / Micro Data 04/22/25 05:20 04/22/25 05:20 Labs: Laboratory Results - last 24 hr 04/22/25 05:20: WBC 6.2, RBC 4.21, Hgb 12.3, Hct 38.2, MCV 90.7, MCH 29.2, MCHC 32.2, RDW Std Deviation 47.8 H, RDW Coeff of Terry 14.6, Plt Count 115 L, MPV 10.6, Immature Gran % (Auto) 1.800 H, Neut % (Auto) 66.8, Lymph % (Auto) 18.2 L,Lyon % (Auto) 8.7, Eos % (Auto) 3.7, Baso % (Auto) 0.8, Absolute Neuts (auto) 4.2, Absolute Lymphs (auto) 1.13, Nucleated RBC % 0, Sodium 134, Potassium 4.7, Chloride 88 L, Carbon Dioxide 40.0 H, Anion Gap 6, BUN 28 H, Creatinine 1.12, Estim Creat Clear Calc 54.29, Est GFR (MDRD) Non-Af 51 L, BUN/Creatinine Ratio 25.4 H, Glucose 102 H, Calcium 9.7 Micro: Microbiology 04/19/25 15:10 Blood Culture (Wb) #2 - Right Hand Blood Culture - Preliminary No growth in 48 hours. 04/19/25 15:05 Blood Culture (Wb) - Anticubital Right Blood Culture - Preliminary No growth in 48 hours. 04/20/25 09:35 Urine, Clean Catch Urine Culture - Final Mixed Gram Pos & Gram Neg Org 04/20/25 09:35 Urine, Clean Catch Legionella Antigen - Final 04/20/25 09:35 Urine, Clean Catch Streptococcus pneumoniae Antigen (M - Final 04/19/25 16:10 Nasal Secretion MRSA (PCR) - Final 04/19/25 16:10 Mucosa - Nose SARS-CoV-2, Influenza & RSV (PCR) - Final Radiography Diagnostic Testing: Radiology Impression Venous Doppler Study 04/21/25 08:33 Interpretation Summary Deep veins of the lower extremities are bilaterally patent and compressible segmentally. There is no evidence of deep vein thrombosis on either side. Valvular competence appears intact within the proximal deep venous systems bilaterally. The great saphenous veins appear bilaterally patent and compressible segmentally. Ordering Physician: Garfield Pierson Referring Physician: Sixto Trinh Performed By: Dada Andujar, RVLu Physical Exam Narrative Seen and examined Patient having soft, well-formed bowel movement, Sample does not meet criteria for C. difficile. Feels weak. Continue doxycycline left shoulder infection by Dr. Andrade. Serum sodium is better Physical exam General: Awake, alert oriented x3, Cooperative HEENT: Atraumatic, PERRLA, EOMI, Normocephalic. Oral: No Gingival or Mucosal Lesions/ Ulcerations Neck: Supple, No JVD, Negative Carotid Bruits Chest wall/Lungs: Air entry diminished in bilateral lung bases. No crepitation Cardiovascular: Low BP. No M/G/R Abdomen: Bowel Sounds Present, Soft, Non Tender, Non-Distended : No dysuria. No renal angle tenderness. No suprapubic tenderness. Extremities: No edema, Capillary Refill Less than 3 Seconds Skin: Bruise on the right knee Musculoskeletal: Weakness of lower extremities, 4+/5 at knees and hip joints. Left shoulder prosthetic joint. No Tenderness to Palpation of Joints or Extremities Neurological: Cranial nerves II-XII grossly intact, DTR 2+/4. No acute focal neurological deficit. Psych/Mental Status: Flat affect Assessment & Plan Assessment/Plan (1) Hyponatremia: PLAN: Plan Patient is a 75-year-old female who presented to [facility] ED on 04/18/2025 with worsening hyponatremia and weakness with falls at home. 1. Hyponatremia probably due to diuretic which she had for 2 weeks: ? Admit under inpatient status to PCU. Nephrology consulted. Baseline sodium around 140; remained around 140 during recent complicated hospitalization from 03/18- 03/26. Dropped significantly to sodium 128 on 04/09. Was instructed to discontinue home Lasix on 04/09 but continued until 04/15. Repeat sodium 125 on 04/16 and has continued to worsen to sodium 121 on 04/18. Severe hyperchloremiawith chloride level 71-74 on recent labs. Patient was also on stress dose steroid for 2 days during recent hospitalization. She was recently discharged on 03/24/2025 after management for undifferentiated shock, acute hypoxic and hypercarbic respiratory failure which required ventilator. 04/19: Repeat sodium was 123. Improved 3 mEq. Ctc Operator is consulted. Calculated serum iron 267. Measured serum iron 310. Osmolar gap 43. Unclear etiology. The usual differential diagnosis of increased osmolar gap are methanol, ketoacidosis, lactic acidosis, ethylene glycol, propylene glycol, isopropanol. Repeat the serum osmolarity and osmolar gap. VBG ordered. 04/20: VBG 7.48/mixed pCO2 44, PaO2 133/bicarb 33/34. Bicarb and BMP was also 33.7. Anion gap 9. Sodium is still low 125 x 2. CPK 25. Lactic acid 1.3. Serum osmolality 279 which seems more appropriate than earlier reported 310. Calculated on repeat BMP 04/19 271, osmolar gap 8.0 which is in normal range.UA negative, hCG 1.015, protein 30. Ctc Operator on board 04/21: Serum sodium improved 127 today. K4.2. Bicarb of 37.5. Anion gap 5. Osmolar gap was normal as mentioned above. 04/22 was seen by pillowcase turner. Sodium and chloride at baseline. Sodium 130 4K4.7. Chloride 88. Wants to go to TCU 2. ELVIA with mild hyperkalemia, severe non-anion gap metabolic acidosis, severe hypochloremia ? Nephrology consulted as above. Creatinine 1.30, potassium 5.4 on admit. Baseline creatinine around 0.7-0.8. Bicarb 42. Chloride level 71-74 on recent labs as above. Notably creatinine was 1.6-1.9 on recent labs and has improved to 1.30 with discontinuing home Lasix and losartan. Suspect prerenal etiology due to overdiuresis. 04/19: Continue holding Lasix, losartan, indapamide and spironolactone. SevereNAGMA is presumed secondary to chronic respiratory failure as below. 04/20: Creatinine 1.31. BUN 39, BUN/creatinine ratio 29.4 still high 04/22: BUN/creatinine 28/1.12. 3. 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 Patient with recent complicated hospitalization and required intubation for combined respiratory failure from 03/18-03/20. Was discharged home on 2 L nasal cannula at rest and 3 L with exertion. Has suspected NEEL and recommendation wasfor outpatient workup for this which has not been completed yet. Stable on 2 L nasal cannula at rest in the ED. Monitor. Continue home albuterol inhaler as needed. 04/20: Rib chest x-ray reviewed shows mild pulmonary vascular congestion and bibasilar atelectasis but no obvious shortness of breath. Continue incentive spirometry and PEP for 1 week 04/22: Patient on 2 L of baseline oxygen. Incentive spirometry advised 4. Chronic HFpEF, hypertension ? Echo during recent hospitalization on 03/19 showed EF 75%, moderate concentric LV hypertrophy, no other concerning findings. Mildly hypertensive to the 140s systolic in the ED. Holding home Lasix, losartan, indapamide and spironolactoneas above. Okay to continue home Coreg. 5. Acute on chronic debility with recent falls ? PT/OT/case management consulted. Patient lives at home alone. She was able to be discharged home with home health care after recent prolonged hospitalization. Has had worsening functional status with small falls over the past week or so per family. Appreciate therapy recommendations. 6. Anxiety, depression, insomnia, restless leg syndrome, neuropathy ? Continue home bupropion, duloxetine, gabapentin, pramipexole, mirtazapine and melatonin. 7. Class II obesity ? BMI 36 on admit. Complicates hospital course and care. 8. 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 No evidence of infection. Patient on Dr. Twice daily and continued. Patient also denied prior history of DVT but Sixto Trinh wanted venous duplex of the lower extremities. Venous duplex ordered DVT prophylaxis: Heparin subcu CODE STATUS: DNR CCA, okay to intubate Microbiology Past 72 Hours 04/19/25 15:10 Blood Culture (Wb) #2 - Right Hand Blood Culture - Preliminary No growth in 48 hours. 04/19/25 15:05 Blood Culture (Wb) - Anticubital Right Blood Culture - Preliminary No growth in 48 hours. 04/20/25 09:35 Urine, Clean Catch Urine Culture - Final Mixed Gram Pos & Gram Neg Org 04/20/25 09:35 Urine, Clean Catch Legionella Antigen - Final 04/20/25 09:35 Urine, Clean Catch Streptococcus pneumoniae Antigen (M - Final 04/19/25 16:10 Nasal Secretion MRSA (PCR) - Final 04/19/25 16:10 Mucosa - Nose SARS-CoV-2, Influenza & RSV (PCR) - Final Laboratory Results 04/22/25 05:20: WBC 6.2, RBC 4.21, Hgb 12.3, Hct 38.2, MCV 90.7, MCH 29.2, MCHC 32.2, RDW Std Deviation 47.8 H, RDW Coeff of Terry 14.6, Plt Count 115 L, MPV 10.6, Immature Gran % (Auto) 1.800 H, Neut % (Auto) 66.8, Lymph % (Auto) 18.2 L,Lyon % (Auto) 8.7, Eos % (Auto) 3.7, Baso % (Auto) 0.8, Absolute Neuts (auto) 4.2, Absolute Lymphs (auto) 1.13, Nucleated RBC % 0, Sodium 134, Potassium 4.7, Chloride 88 L, Carbon Dioxide 40.0 H, Anion Gap 6, BUN 28 H, Creatinine 1.12, Estim Creat Clear Calc 54.29, Est GFR (MDRD) Non-Af 51 L, BUN/Creatinine Ratio 25.4 H, Glucose 102 H, Calcium 9.7 Charges/Coding Visit Charges Inpatient E&M: 57631 Subs Hosp L2 04/22/25 0656 <Electronically signed by Garfield Pierson MD> Cosigner Signature (if applicable): CC: ~ Signed [facility] Work Phone: Reason for referral (narrative)No reason for referral information availableWGrand Lake Joint [facility] Work Phone: Advance Directives Documents on File Type Date Recorded 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 Expl anation Advance Directive(s) 01/27/2016 7:37 AM Advance Directive Response Recorded Date/ Time Advance Directives Yes October 03 3:41pm Living Will Yes June 24, 020 2:31pm Power of Aluminum Siding Mechanic Yes June 24, 2020 2:31pm Advance Directive Response Recorded Date/ Time Advance Directives Yes October 03 2:41pm Living Will Yes June 24 020 1:31pm Power of Aluminum Siding Mechanic Yes June 24, 2020 1:31pm Advance Directive Response Recorded Date/ Time Living Will Yes September 13, 2024 6:26pm Power of Aluminum Siding Mechanic Yes September 13 6:26pm Name of Medical Power of Aluminum Siding Mechanic GRANDDAUGHTER/ SISTER September 13, 2024 6:26pm Advance Directives Yes October 03 3:41pm Advance Directive Response Recorded Date/ Time Living Will Yes September 18, 2024 4:28pm Do you have a Healthcare Power of Aluminum Siding Mechanic? Yes September 18, 2024 4:28pm Name of Medical Power of Aluminum Siding Mechanic Sister (Mary Jane Daniels) and Granddaughter (Pattie Woo) September 18, 2024 4:28pm Living Will Yes September 13, 2024 6:26pm Do you have a Healthcare Power of Aluminum Siding Mechanic? Yes September 13, 2024 6:26pm Name of Medical Power of Aluminum Siding Mechanic GRANDDAUGHTER/SISTER September 13, 2024 6:26pm Advance Directives Yes October 03 3:41pm Advance Directive Response Recorded Date/ Time Advance Directives Yes October 03 3:41pm Advance Directive Response Recorded Date/ Time Do you have a Healthcare Power of Aluminum Siding Mechanic? No March 18, 2025 3:48pm Advance Directives Yes October 03 3:41pm Advance Directive Response Recorded Date/ Time Do you have a Healthcare Power of Aluminum Siding Mechanic? No March 18, 2025 3:48pm Do you have a Healthcare Power of Aluminum Siding Mechanic? Yes April 18, 2025 7:55pm Advance Directives Yes October 03 3:41pm Advance Directive Response Recorded Date/ Time Do you have a Healthcare Power of Aluminum Siding Mechanic? No March 18, 2025 2:48pm Do you have a Healthcare Power of Aluminum Siding Mechanic? Yes April 18, 2025 6:55pm Advance Directives Yes October 03 2:41pm Chief Complaint and Reason for Visit Chief [...] 40pm Acute respiratory failure with hypoxia M arch 2024 12:40pm Debility September 18, 2024 12: [...] hypoxia and hypercapnia March 18, 2025 7:38pm Chief Complaint Admit Date R rales February 10, 2025 10 :02am Acute diastolic (congestive) heart failu re March 04, 2025 9:23am EORDER March 10, 2025 10:40am SOB,FLUID RETENTION March 17, 2025 4:32pm UNDIFFERENTIATED SHOCK, ACUTE HYPOXIC HY PERCAPNIC March 18, 2025 7:38pm RHYTHM CHANGE March 18, 2025 9:18pm UNDIFFERENTIATED SHOCK, ACUTE HYPOXIC HY PERCAPNIC March 19, 2025 8:09am UNDIFFERENTIATED SHOCK, ACUTE HYPOXIC HY PERCAPNIC March 19, 2025 2:11pm UNDIFFERENTIATED SHOCK, ACUTE HYPOXIC HY PERCAPNIC March 20, 2025 6:52am UNDIFFERENTIATED SHOCK, ACUTE HYPOXIC HY PERCAPNIC March 20, 2025 7:27am UNDIFFERENTIATED SHOCK, ACUTE HYPOXIC HY PERCAPNIC March 20, 2025 1:52pm UNDIFFERENTIATED SHOCK, ACUTE HYPOXIC HY PERCAPNIC March 21, 2025 7:20am UNDIFFERENTIATED SHOCK, ACUTE HYPOXIC HY PERCAPNIC March 21, 2025 12:07pm UNDIFFERENTIATED SHOCK, ACUTE HYPOXIC HY PERCAPNIC March 22, 2025 10:15am UNDIFFERENTIATED SHOCK, ACUTE HYPOXIC HY PERCAPNIC March 23, 2025 12:07pm UNDIFFERENTIATED SHOCK, ACUTE HYPOXIC HY PERCAPNIC March 24, 2025 4:36pm UNDIFFERENTIATED SHOCK, ACUTE HYPOXIC HY PERCAPNIC March 25, 2025 6:02pm UNDIFFERENTIATED SHOCK, ACUTE HYPOXIC HY PERCAPNIC March 26, 2025 1:09pm Reason for Visit Admit Date Acute dehydration March 18, 2025 7:38pm Acute hypotension March 18, 2025 7:38pm Acute kidney injury March 18, 2025 7:38pm Acute respiratory failure with hypoxia a nd hypercapnia March 18, 2025 7:38pm Bacteria in urine March 18, 2025 7:38pm Debility March 18, 2025 7:38pm Essential (primary) hypertension Septemb 2024 7:38pm Hypothermia March 18, 2025 7:38pm Infection of prosthetic shoulder joint S eptember 2024 7:38pm Saccular aneurysm March 18, 2025 7:38pm Shock March 18, 2025 7:38pm Acute on chronic respiratory failure with hypoxia and hypercapnia March 18, 2025 7:38pm Chief Complaint Admit Date R rales February 10, 2025 10 :02am Acute diastolic (congestive) heart failu re March 04, 2025 9:23am EORDER March 10, 2025 10:40am SOB,FLUID RETENTION March 17, 2025 4:32pm UNDIFFERENTIATED SHOCK, ACUTE HYPOXIC HY PERCAPNIC March 18, 2025 7:38pm RHYTHM CHANGE March 18, 2025 9:18pm UNDIFFERENTIATED SHOCK, ACUTE HYPOXIC HY PERCAPNIC March 19, 2025 8:09am UNDIFFERENTIATED SHOCK, ACUTE HYPOXIC HY PERCAPNIC March 19, 2025 2:11pm UNDIFFERENTIATED SHOCK, ACUTE HYPOXIC HY PERCAPNIC March 20, 2025 6:52am UNDIFFERENTIATED SHOCK, ACUTE HYPOXIC HY PERCAPNIC March 20, 2025 7:27am UNDIFFERENTIATED SHOCK, ACUTE HYPOXIC HY PERCAPNIC March 20, 2025 1:52pm UNDIFFERENTIATED SHOCK, ACUTE HYPOXIC HY PERCAPNIC March 21, 2025 7:20am UNDIFFERENTIATED SHOCK, ACUTE HYPOXIC HY PERCAPNIC March 21, 2025 12:07pm UNDIFFERENTIATED SHOCK, ACUTE HYPOXIC HY PERCAPNIC March 22, 2025 10:15am UNDIFFERENTIATED SHOCK, ACUTE HYPOXIC HY PERCAPNIC March 23, 2025 12:07pm UNDIFFERENTIATED SHOCK, ACUTE HYPOXIC HY PERCAPNIC March 24, 2025 4:36pm UNDIFFERENTIATED SHOCK, ACUTE HYPOXIC HY PERCAPNIC March 25, 2025 6:02pm UNDIFFERENTIATED SHOCK, ACUTE HYPOXIC HY PERCAPNIC March 26, 2025 1:09pm H HOSP F/U, 03/27/25, AAA April 16, 2025 3:22pm INT LAB ORDERS April 16, 2025 4 :32pm HYPONATREMIA, FALLS April 18, 2025 5 :23pm HYPONATREMIA, FALLS April 19, 2025 1 1:37am HYPONATREMIA, FALLS April 20, 2025 7 :26am HYPONATREMIA, FALLS April 21, 2025 8 :33am HYPONATREMIA, FALLS April 22, 2025 5 :29pm HYPONATREMIA, FALLS April 23, 2025 1 0:53am Reason for Visit Admit Date Saccular aneurysm March 18, 2025 7:38pm Acute dehydration March 18, 2025 7:38pm Acute hypotension March 18, 2025 7:38pm Acute kidney injury March 18, 2025 7:38pm Acute on chronic respiratory failure with hypoxia and hypercapnia March 18, 2025 7:38pm Acute respiratory failure with hypoxia a nd hypercapnia March 18, 2025 7:38pm Bacteria in urine March 18, 2025 7:38pm Hypothermia March 18, 2025 7:38pm Shock March 18, 2025 7:38pm Debility March 18, 2025 7:38pm Essential (primary) hypertension Septemb er 2024 7:38pm Infection of prosthetic shoulder joint S eptember 2024 7:38pm Hypoxia April 16, 2025 3 :22pm Pericardial effusion April 16, 2025 3:22pm Saccular aneurysm April 16, 2025 3 :22pm Hypertension April 16, 2025 3 :22pm Hypochloremic alkalosis April 18 5:23pm Hyponatremia April 18, 2025 5 :23pm Chief Complaint Admit Date R rales February 10, 2025 10 :02am Acute diastolic (congestive) heart failu re March 04, 2025 9:23am EORDER March 10, 2025 10:40am SOB,FLUID RETENTION March 17, 2025 4:32pm UNDIFFERENTIATED SHOCK, ACUTE HYPOXIC HY PERCAPNIC March 18, 2025 7:38pm RHYTHM CHANGE March 18, 2025 9:18pm UNDIFFERENTIATED SHOCK, ACUTE HYPOXIC HY PERCAPNIC March 19, 2025 8:09am UNDIFFERENTIATED SHOCK, ACUTE HYPOXIC HY PERCAPNIC March 19, 2025 2:11pm UNDIFFERENTIATED SHOCK, ACUTE HYPOXIC HY PERCAPNIC March 20, 2025 6:52am UNDIFFERENTIATED SHOCK, ACUTE HYPOXIC HY PERCAPNIC March 20, 2025 7:27am UNDIFFERENTIATED SHOCK, ACUTE HYPOXIC HY PERCAPNIC March 20, 2025 1:52pm UNDIFFERENTIATED SHOCK, ACUTE HYPOXIC HY PERCAPNIC March 21, 2025 7:20am UNDIFFERENTIATED SHOCK, ACUTE HYPOXIC HY PERCAPNIC March 21, 2025 12:07pm UNDIFFERENTIATED SHOCK, ACUTE HYPOXIC HY PERCAPNIC March 22, 2025 10:15am UNDIFFERENTIATED SHOCK, ACUTE HYPOXIC HY PERCAPNIC March 23, 2025 12:07pm UNDIFFERENTIATED SHOCK, ACUTE HYPOXIC HY PERCAPNIC March 24, 2025 4:36pm UNDIFFERENTIATED SHOCK, ACUTE HYPOXIC HY PERCAPNIC March 25, 2025 6:02pm UNDIFFERENTIATED SHOCK, ACUTE HYPOXIC HY PERCAPNIC March 26, 2025 1:09pm [facility] F/U, 03/27/25, AAA April 16, 2025 3:22pm INT LAB ORDERS April 16, 2025 4 :32pm [place] April 18, 2025 5 :23pm [place] April 19, 2025 1 1:37am [place] April 20, 2025 7 :26am [place]ON[place] April 21, 2025 8 :33am [place]ONAT[place] April 22, 2025 5 :29pm [place]ONAT[place] April 23, 2025 1 0:53am LAB WORK April 24, 2025 5 :00am LAB WORK April 29, 2025 5 :00am Summary Purpose Family History Relationship Condition Age at Onset Recorded Date/T nohelia mother Cardiac disease Unknown Diabetes mellitus Unknown brother Cardiac disease Unknown sister Atrial fibrillation Unknown Additional Source Comments Source Comments (unrecognize d section and content) In the event this informatio n is protected by the Federal Confidentiality of Alcohol and Drug Abuse Patient Records regulations: The Federal rules restrict any use of the information to criminally investigate or prosecute any alcohol or drug abuse patient.[facility] Goals (unrecognized section and content) Type Treatment Intervention Code Status: DNRC C-A, With IntubationDiscussed with: FamilyPOA Care Teams (unrecognized sec tion and content) Team Status: Active Member Role Status Dates Dr. Kamar Grimes MD Family Provider Active Dr. Kamar Grimes MD Primary Care Provider Active Team Status: Inactive Member Role Status Dates Dr. Kamar Grimes MD Primary Care Provide r, Attending Provider, Referring Provider Active Team Status: Inactive Member Role Status Dates Dr. Kamar Grimes MD Primary Care Provider, Santosh wallace Active Team Status: Active Member Role Status Dates Dr. Kamar Grimes MD Primary Care Provider Active Team Status: Active Member Role Status Dates Dr. Kamar Grimes MD Primary Care Provider Active Start: September 12, 2024 End: September 12, 2024 Dr. Tejal Holly MD Attending Provider Activ e Start: September 12, 2024 End: September 12, 2024 Dr. Fahad Cavanaugh MD Referring Provider Active Start: September 12, 2024 End: September 12, 2024 Team Status: Active Member Role Status Dates Dr. Kamar Grimes MD Primary Care Provider Active Start: [...] Status: Active Member Role Status Dates Dr. Kamar Grimes MD Primary Care Provider Active Start: [...] Status: Inactive Member Role Status Dates Dr. Kamar Grimes MD Primary Care Provider Active Start: [...] Status: Active Member Role Status Dates Dr. Kamar Grimes MD Primary Care Provider Active Start: [...] Status: Active Member Role Status Dates Dr. Kamar Grimes MD Primary Care Provider Active Start: [...] Status: Active Member Role Status Dates Dr. Kamar Grimes MD Primary Care Provider Active Start: [...] Status: Active Member Role Status Dates Dr. Kamar Grimes MD Primary Care Provider Active Start: [...] Status: Active Member Role Status Dates Dr. Kamar Grimes MD Primary Care Provider Active Start: [...] Status: Active Member Role Status Dates Dr. Kamar Grimes MD Primary Care Provider Active Start: [...] Status: Active Member Role Status Dates Dr. Kamar Grimes MD Primary Care Provider Active Start: [...] Status: Active Member Role Status Dates Dr. Kamar Grimes MD Primary Care Provider Active Start: [...] Status: Inactive Member Role Status Dates Dr. Kamar Grimes MD Primary Care Provider Active Start: [...] Status: Active Member Role/Relationship Status Dates Dr. Kamar Grimes MD Primary Care Provider Active Team Status: Inactive Member Role/Relationship Status Dates Dr. Kamar Grimes MD Primary Care Provider Active Start: February 10, 2025 End: February 10, 2025 Dr. Kamar Grimes MD Attending Provider Active St art: February 10, 2025 End: February 10, 2025 Dr. Kamar Grimes MD Referring Provider Active St art: February 10, 2025 End: February 10, 2025 Team Status: Inactive Member Role/Relationship Status Dates Dr. Kamar Grimes MD Primary Care Provider Active Start: March 04, 2025 End: March 04, 2025 Dr. Kamar Grimes MD Attending Provider Active St art: March 04, 2025 End: March 04, 2025 Dr. Kamar Grimes MD Referring Provider Active St art: March 04, 2025 End: March 04, 2025 Team Status: Active Member Role/Relationship Status Dates Dr. Kamar Grimes MD Primary Care Provider Active Start: March 04, 2025 Dr. Carlene Salazar MD Attending Provider Active Start: March 04, 2025 Team Status: Active Member Role/Relationship Status Dates Dr. Kamar Grimes MD Primary Care Provider Active Start: March 10, 2025 Dr. Kamar Grimes MD Attending Provider Active St art: March 10, 2025 Dr. Kamar Grimes MD Referring Provider Active St art: March 10, 2025 Team Status: Active Member Role/Relationship Status Dates Dr. Kamar Grimes MD Primary Care Provider Active Start: March 17, 2025 Dr. Kamar Grimes MD Attending Provider Active St art: March 17, 2025 Dr. Kamar Grimes MD Referring Provider Active St art: March 17, 2025 Team Status: Active Member Role/Relationship Status Dates Dr. Kamar Grimes MD Primary Care Provider Active Start: March 18, 2025 Dr. Deion Levy MD Emergency Provider Active Sta rt: March 18, 2025 Dr. Emili Lee MD Admit Provider Active Star t: March 18, 2025 Dr. Emili Lee MD Attending Provider Active Start: March 18, 2025 Dr. Emili Lee MD Other Provider Active Star t: March 18, 2025 Team Status: Active Member Role/Relationship Status Dates Dr. Kamar Grimes MD Primary care physician Active Team Status: Inactive Member Role/Relationship Status Dates Dr. Kamar Grimes MD Primary care physician Active Start: February 10, 2025 End: February 10, 2025 Dr. Kamar Grimes MD Attending physician Active S tart: February 10, 2025 End: February 10, 2025 Dr. Kamar Grimes MD Referring Provider Active St art: February 10, 2025 End: February 10, 2025 Team Status: Inactive Member Role/Relationship Status Dates Dr. Kamar Grimes MD Primary care physician Active Start: March 04, 2025 End: March 04, 2025 Dr. Kamar Grimes MD Attending physician Active S tart: March 04, 2025 End: March 04, 2025 Dr. Kamar Grimes MD Referring Provider Active St art: March 04, 2025 End: March 04, 2025 Team Status: Active Member Role/Relationship Status Dates Dr. Kamar Grimes MD Primary care physician Active Start: March 04, 2025 Dr. Carlene Salazar MD Attending physician Active Start: March 04, 2025 Team Status: Inactive Member Role/Relationship Status Dates Dr. Kamar Grimes MD Primary care physician Active Start: March 10, 2025 End: March 10, 2025 Dr. Kamar Grimes MD Attending physician Active S tart: March 10, 2025 End: March 10, 2025 Dr. Kamar Grimes MD Referring Provider Active St art: March 10, 2025 End: March 10, 2025 Team Status: Active Member Role/Relationship Status Dates Dr. Kamar Grimes MD Primary care physician Active Start: March 17, 2025 Dr. Kamar Grimes MD Attending physician Active S tart: March 17, 2025 Dr. Kamar Grimes MD Referring Provider Active St art: March 17, 2025 Team Status: Active Member Role/Relationship Status Dates Dr. Kamar Grimes MD Primary care physician Active Start: March 18, 2025 Dr. Deion Levy MD Emergency Department Physician Active Start: March 18, 2025 Dr. Emili Lee MD Admitting physician Active Start: March 18, 2025 Dr. Emili Lee MD Attending physician Active Start: March 18, 2025 Dr. Wally Waddell MD Nurse Practitioner Active Start: March 18, 2025 Dr. Garrick Staples MD Nurse Practitioner Active Sta rt: March 18, 2025 Dr. Murtaza Hunter MD Nurse Practitioner Active Start: March 18, 2025 Dr. Antwan Gardner DO Nurse Practitioner Active S tart: March 18, 2025 Dr. Abdirashid Smith MD Nurse Practitioner Active Start: March 18, 2025 Dr. Reginaldo Fatima MD Nurse Practitioner Active Start: March 18, 2025 Dr. Alden Arcos MD Nurse Practitioner Active Start: March 18, 2025 Dr. Rosalind Key MD Nurse Practitioner Active Start: March Dr. Jose Angel Handley MD Nurse Practitioner Active S tart: March 18, 2025 Dr. Petros Akbar MD Nurse Practitioner Active St art: March 18, 2025 Dr. Lamin Campos MD Nurse Practitioner Active S tart: March 18, 2025 Dr. Sarah Hicks MD Nurse Practitioner Active Start: March 18, 2025 Dr. Al Angel MD Nurse Practitioner Active Start: March 18, 2025 Dr. Ruma Barnes MD Nurse Practitioner Active Start: March 18, 2025 Dr. Travis Daley MD Nurse Practitioner Active Start: March 18, 2025 Dr. Butch Ospina MD Nurse Practitioner Active Start: March 18, 2025 Dr. John Shepard MD Nurse Practitioner Active Start: March 18, 2025 Dr. Angel Alva DO Nurse Practitioner Active Start: March 18, 2025 Dr. Alina Garcia MD Nurse Practitioner Active St art: March 18, 2025 Dr. Roopa Sands MD Nurse Practitioner Active Start: March 18, 2025 Dr. Hermann Can DO Nurse Practitioner Active Start: March 18, 2025 Dr. Cuate Rao MD Nurse Practitioner Active Start: March 18, 2025 Dr. Celestino Gallagher MD Nurse Practitioner Active Start: March 18, 2025 Dr. Tacos Hollins MD Nurse Practitioner Active Start: March Dr. John Quinn MD Nurse Practitioner Active Start: March 18, 2025 Jodi Al NP, [employer] SE[employer]ESS-C Nurse Practitioner Active Start: March 18, 2025 Sahara Chen [employer]-C Nurse Practitioner Active Start: March 18, 2025 Team Status: Inactive Member Role/Relationship Status Dates Dr. Kamar Grimes MD Primary care physician Active Start: March 17, 2025 End: March 17, 2025 Dr. Kamar Grimes MD Attending physician Active S tart: March 17, 2025 End: March 17, 2025 Dr. Kamar Grimes MD Referring Provider Active St art: March 17, 2025 End: March 17, 2025 Team Status: Inactive Member Role/Relationship Status Dates Dr. Kamar Grimes MD Primary care physician Active Start: March 18, 2025 End: March 26, 2025 Dr. Deion Levy MD Emergency Department Physician Active Start: March 18, 2025 End: March 26, 2025 Dr. Emili Lee MD Admitting physician Active Start: March 18, 2025 End: March 26, 2025 Dr. Emili Lee MD Nurse Practitioner Active Start: March 18, 2025 End: March 26, 2025 Dr. Sixto Andrade MD Nurse Practitioner Active Start: March 18, 2025 End: March 26, 2025 Dr. Wally Waddell MD Nurse Practitioner Active Start: March 18, 2025 End: March 26, 2025 Dr. Garrick Staples MD Nurse Practitioner Active Sta rt: March 18, 2025 End: March 26, 2025 Dr. Murtaza Hunter MD Nurse Practitioner Active Start: March 18, 2025 End: March 26, 2025 Dr. Antwan Gardner DO Nurse Practitioner Active S tart: March 18, 2025 End: March 26, 2025 Dr. Abdirashid Smith MD Nurse Practitioner Active Start: March 18, 2025 End: March 26, 2025 Dr. Reginaldo Fatima MD Nurse Practitioner Active Start: March 18, 2025 End: March 26, 2025 Dr. Alden Arcos MD Nurse Practitioner Active Start: March 18, 2025 End: March 26, 2025 Dr. Rosalind Key MD Nurse Practitioner Active Start: March End: March 26, 2025 Dr. Jose Angel Handley MD Nurse Practitioner Active S tart: March 18, 2025 End: March 26, 2025 Dr. Petros Akbar MD Nurse Practitioner Active St art: March 18, 2025 End: March 26, 2025 Dr. Lamin Campos MD Nurse Practitioner Active S tart: March 18, 2025 End: March 26, 2025 Dr. Sarah Hicks MD Nurse Practitioner Active Start: March 18, 2025 End: March 26, 2025 Dr. Al Angel MD Nurse Practitioner Active Start: March 18, 2025 End: March 26, 2025 Dr. Ruma Barnes MD Nurse Practitioner Active Start: March 18, 2025 End: March 26, 2025 Dr. Travis Daley MD Nurse Practitioner Active Start: March 18, 2025 End: March 26, 2025 Dr. Butch Ospina MD Nurse Practitioner Active Start: March 18, 2025 End: March 26, 2025 Dr. John Shepard MD Nurse Practitioner Active Start: March 18, 2025 End: March 26, 2025 Dr. Angel Alva DO Nurse Practitioner Active Start: March 18, 2025 End: March 26, 2025 Dr. Alina Garcia MD Nurse Practitioner Active St art: March 18, 2025 End: March 26, 2025 Dr. Roopa Sands MD Nurse Practitioner Active Start: March 18, 2025 End: March 26, 2025 Dr. Hermann Can DO Nurse Practitioner Active Start: March 18, 2025 End: March 26, 2025 Dr. Cuate Rao MD Nurse Practitioner Active Start: March 18, 2025 End: March 26, 2025 Dr. Celestino Gallagher MD Nurse Practitioner Active Start: March 18, 2025 End: March 26, 2025 Dr. Tacos Hollins MD Nurse Practitioner Active Start: March End: March 26, 2025 Dr. John Quinn MD Nurse Practitioner Active Start: March 18, 2025 End: March 26, 2025 Jodi Al NP, [employer] SE[employer]STRESS-C Nurse Practitioner Active Start: March 18, 2025 End: March 26, 2025 Sahara Chen [employer]-C Nurse Practitioner Active Start: March 18, 2025 End: March 26, 2025 Dr. Otilia Hernandez MD Nurse Practitioner Active Start: March 18, 2025 End: March 26, 2025 Dr. Karla Bustamante DO Attending physician Active Start: March 18, 2025 End: March 26, 2025 Team Status: Active Member Role/Relationship Status Dates Dr. Kamar Grimes MD Primary care physician Active Start: March 18, 2025 Dr. Saul Kearney MD Attending physician Active Start: March 18, 2025 Tayler Abbasi NP-C Referring Provider Active S tart: March 18, 2025 Team Status: Active Member Role/Relationship Status Dates Dr. Kamar Grimes MD Primary care physician Active Start: March 19, 2025 Dr. Deion Levy MD Emergency Department Physician Active Start: March 19, 2025 Dr. Emili Lee MD Admitting physician Active Start: March 19, 2025 Dr. Emili Lee MD Nurse Practitioner Active Start: March 19, 2025 Dr. Wally Waddell MD Nurse Practitioner Active Start: March 19, 2025 Dr. Garrick Staples MD Nurse Practitioner Active Sta rt: March 19, 2025 Dr. Murtaza Hunter MD Nurse Practitioner Active Start: March 19, 2025 Dr. Antwan Gardner DO Attending physician Active Start: March 19, 2025 Dr. Antwan Gardner , Nurse Practitioner Active S tart: March 19, 2025 Dr. Abdirashid Smith MD Nurse Practitioner Active Start: March 19, 2025 Dr. Reginaldo Fatima MD Nurse Practitioner Active Start: March 19, 2025 Dr. Alden Arcos MD Nurse Practitioner Active Start: March 19, 2025 Dr. Rosalind Key MD Nurse Practitioner Active Start: March Dr. Jose Angel Handley MD Nurse Practitioner Active S tart: March 19, 2025 Dr. Petros Akbar MD Nurse Practitioner Active St art: March 19, 2025 Dr. Lamin Campos MD Nurse Practitioner Active S tart: March 19, 2025 Dr. Sarah Hicks MD Nurse Practitioner Active Start: March 19, 2025 Dr. Al Angel MD Nurse Practitioner Active Start: March 19, 2025 Dr. Ruma Barnes MD Nurse Practitioner Active Start: March 19, 2025 Dr. Travis Daley MD Nurse Practitioner Active Start: March 19, 2025 Dr. Butch Ospina MD Nurse Practitioner Active Start: March 19, 2025 Dr. John Shepard MD Nurse Practitioner Active Start: March 19, 2025 Dr. Angel Alva DO Nurse Practitioner Active Start: March 19, 2025 Dr. Alina Garcia MD Nurse Practitioner Active St art: March 19, 2025 Dr. Roopa Sands MD Nurse Practitioner Active Start: March 19, 2025 Dr. Hermann Can DO Nurse Practitioner Active Start: March 19, 2025 Dr. Cuate Rao MD Nurse Practitioner Active Start: March 19, 2025 Dr. Celestino Gallagher MD Nurse Practitioner Active Start: March 19, 2025 Dr. Tacos Hollins MD Nurse Practitioner Active Start: March Dr. John Quinn MD Nurse Practitioner Active Start: March 19, 2025 Jodi Al C[employer]OM SEAMSTRESS, [employer] SE[employer]ESS-C Nurse Practitioner Active Start: March 19, 2025 Sahara Chen NP-C Nurse Practitioner Active Start: March 19, 2025 Dr. Otilia Hernandez MD Nurse Practitioner Active Start: March 19, 2025 Team Status: Active Member Role/Relationship Status Dates Dr. Kamar Grimes MD Primary care physician Active Start: March 19, 2025 Dr. Saul Kearney MD Attending physician Active Start: March 19, 2025 Team Status: Active Member Role/Relationship Status Dates Dr. Kamar Grimes MD Primary care physician Active Start: March 19, 2025 Dr. Deion Levy MD Emergency Department Physician Active Start: March 19, 2025 Dr. Emili Lee MD Admitting physician Active Start: March 19, 2025 Dr. Emili Lee MD Nurse Practitioner Active Start: March 19, 2025 Dr. Wally Waddell MD Nurse Practitioner Active Start: March 19, 2025 Dr. Garrick Staples MD Nurse Practitioner Active Sta rt: March 19, 2025 Dr. Murtaza Hunter MD Nurse Practitioner Active Start: March 19, 2025 Dr. Antwan Gardner DO Nurse Practitioner Active S tart: March 19, 2025 Dr. Abdirashid Smith MD Nurse Practitioner Active Start: March 19, 2025 Dr. Reginaldo Fatima MD Nurse Practitioner Active Start: March 19, 2025 Dr. Alden Arcos MD Nurse Practitioner Active Start: March 19, 2025 Dr. Rosalind Key MD Nurse Practitioner Active Start: March Dr. Jose Angel Handley MD Nurse Practitioner Active S tart: March 19, 2025 Dr. Petros Akbar MD Nurse Practitioner Active St art: March 19, 2025 Dr. Lamin Campos MD Nurse Practitioner Active S tart: March 19, 2025 Dr. Sarah Hicks MD Nurse Practitioner Active Start: March 19, 2025 Dr. Al Angel MD Nurse Practitioner Active Start: March 19, 2025 Dr. Ruma Barnes MD Nurse Practitioner Active Start: March 19, 2025 Dr. Travis Daley MD Nurse Practitioner Active Start: March 19, 2025 Dr. Butch Ospina MD Nurse Practitioner Active Start: March 19, 2025 Dr. John Shepard MD Nurse Practitioner Active Start: March 19, 2025 Dr. Angel Alva , Nurse Practitioner Active Start: March 19, 2025 Dr. Alina Garcia MD Nurse Practitioner Active St art: March 19, 2025 Dr. Roopa Sands MD Nurse Practitioner Active Start: March 19, 2025 Dr. Hermann Can , Nurse Practitioner Active Start: March 19, 2025 Dr. Cuate Rao MD Nurse Practitioner Active Start: March 19, 2025 Dr. Celestino Gallagher MD Nurse Practitioner Active Start: March 19, 2025 Dr. Tacos Hollins MD Nurse Practitioner Active Start: March Dr. John Quinn MD Nurse Practitioner Active Start: March 19, 2025 Jodi Al NP, [employer] SE[employer]ESS-C Nurse Practitioner Active Start: March 19, 2025 Sahara Chen [employer] SE[employer]-C Nurse Practitioner Active Start: March 19, 2025 Dr. Otilia Hernandez MD Attending physician Active Start: March 19, 2025 Dr. Otilia Hernandez MD Nurse Practitioner Active Start: March 19, 2025 Team Status: Active Member Role/Relationship Status Dates Dr. Kamar Grimes MD Primary care physician Active Start: March 20, 2025 Dr. Deion Levy MD Emergency Department Physician Active Start: March 20, 2025 Dr. Emili Lee MD Admitting physician Active Start: March 20, 2025 Dr. Emili Lee MD Nurse Practitioner Active Start: March 20, 2025 Dr. Wally Waddell MD Nurse Practitioner Active Start: March 20, 2025 Dr. Garrick Staples MD Nurse Practitioner Active Sta rt: March 20, 2025 Dr. Murtaza Hunter MD Nurse Practitioner Active Start: March 20, 2025 Dr. Antwan Gardner DO Nurse Practitioner Active S tart: March 20, 2025 Dr. Abdirashid Smith MD Nurse Practitioner Active Start: March 20, 2025 Dr. Reginaldo Fatima MD Nurse Practitioner Active Start: March 20, 2025 Dr. Alden Arcos MD Nurse Practitioner Active Start: March 20, 2025 Dr. Rosalind Key MD Nurse Practitioner Active Start: March Dr. Jose Angel Handley MD Nurse Practitioner Active S tart: March 20, 2025 Dr. Petros Akbar MD Nurse Practitioner Active St art: March 20, 2025 Dr. Lamin Campos MD Nurse Practitioner Active S tart: March 20, 2025 Dr. Sarah Hicks MD Nurse Practitioner Active Start: March 20, 2025 Dr. Al Angel MD Nurse Practitioner Active Start: March 20, 2025 Dr. Ruma Barnes MD Nurse Practitioner Active Start: March 20, 2025 Dr. Travis Daley MD Nurse Practitioner Active Start: March 20, 2025 Dr. Butch Ospina MD Nurse Practitioner Active Start: March 20, 2025 Dr. John Shepard MD Nurse Practitioner Active Start: March 20, 2025 Dr. Angel Alva DO Nurse Practitioner Active Start: March 20, 2025 Dr. Alina Garcia MD Nurse Practitioner Active St art: March 20, 2025 Dr. Roopa Sands MD Nurse Practitioner Active Start: March 20, 2025 Dr. Hermann Can DO Nurse Practitioner Active Start: March 20, 2025 Dr. Cuate Rao MD Nurse Practitioner Active Start: March 20, 2025 Dr. Celestino Gallagher MD Nurse Practitioner Active Start: March 20, 2025 Dr. Tacos Hollins MD Nurse Practitioner Active Start: March Dr. John Quinn MD Nurse Practitioner Active Start: March 20, 2025 Jodi Al C[employer]OM SEAMSTRESS, [employer] SE[employer]ESS-C Nurse Practitioner Active Start: March 20, 2025 Sahara Chne NP-C Nurse Practitioner Active Start: March 20, 2025 Dr. Otilia Hernandez MD Nurse Practitioner Active Start: March 20, 2025 Dr. Saul Kearney MD Attending physician Active Start: March 20, 2025 Dr. Saul Kearney MD Nurse Practitioner Active S tart: March 20, 2025 Team Status: Active Member Role/Relationship Status Dates Dr. Kamar Grimes MD Primary care physician Active Start: March 20, 2025 Dr. Deion Levy MD Emergency Department Physician Active Start: March 20, 2025 Dr. Emili Lee MD Admitting physician Active Start: March 20, 2025 Dr. Emili Lee MD Nurse Practitioner Active Start: March 20, 2025 Dr. Wally Waddell MD Nurse Practitioner Active Start: March 20, 2025 Dr. Garrick Staples MD Nurse Practitioner Active Sta rt: March 20, 2025 Dr. Murtaza Hunter MD Nurse Practitioner Active Start: March 20, 2025 Dr. Antwan Gardner DO Attending physician Active Start: March 20, 2025 Dr. Antwan Gardner DO Nurse Practitioner Active S tart: March 20, 2025 Dr. Abdirashid Smith MD Nurse Practitioner Active Start: March 20, 2025 Dr. Reginaldo Fatima MD Nurse Practitioner Active Start: March 20, 2025 Dr. Alden Arcos MD Nurse Practitioner Active Start: March 20, 2025 Dr. Rosalind Key MD Nurse Practitioner Active Start: March Dr. Jose Angel Handley MD Nurse Practitioner Active S tart: March 20, 2025 Dr. Petros Akbar MD Nurse Practitioner Active St art: March 20, 2025 Dr. Lamin Campos MD Nurse Practitioner Active S tart: March 20, 2025 Dr. Sarah Hicks MD Nurse Practitioner Active Start: March 20, 2025 Dr. Al Angel MD Nurse Practitioner Active Start: March 20, 2025 Dr. Ruma Barnes MD Nurse Practitioner Active Start: March 20, 2025 Dr. Travis Daley MD Nurse Practitioner Active Start: March 20, 2025 Dr. Butch Ospina MD Nurse Practitioner Active Start: March 20, 2025 Dr. John Shepard MD Nurse Practitioner Active Start: March 20, 2025 Dr. Angel Alva DO Nurse Practitioner Active Start: March 20, 2025 Dr. Alina Garcia MD Nurse Practitioner Active St art: March 20, 2025 Dr. Roopa Sands MD Nurse Practitioner Active Start: March 20, 2025 Dr. Hermann Can DO Nurse Practitioner Active Start: March 20, 2025 Dr. Cuate Rao MD Nurse Practitioner Active Start: March 20, 2025 Dr. Celestino Gallagher MD Nurse Practitioner Active Start: March 20, 2025 Dr. Tacos Hollins MD Nurse Practitioner Active Start: March Dr. John Quinn MD Nurse Practitioner Active Start: March 20, 2025 Jodi Al C[employer]OM SEAMSTRESS, [employer] SE[employer]STRESS-C Nurse Practitioner Active Start: March 20, 2025 Sahara Chen [employer] SE[employer]-C Nurse Practitioner Active Start: March 20, 2025 Dr. Otilia Hernandez MD Nurse Practitioner Active Start: March 20, 2025 Dr. Saul Kearney MD Nurse Practitioner Active S tart: March 20, 2025 Dr. Sixto Andrade MD Nurse Practitioner Active Start: March 20, 2025 Team Status: Active Member Role/Relationship Status Dates Dr. Kamar Grimes MD Primary care physician Active Start: March 20, 2025 Dr. Deion Levy MD Emergency Department Physician Active Start: March 20, 2025 Dr. Emili Lee MD Admitting physician Active Start: March 20, 2025 Dr. Emili Lee MD Nurse Practitioner Active Start: March 20, 2025 Dr. Wally Waddell MD Nurse Practitioner Active Start: March 20, 2025 Dr. Garrick Staples MD Nurse Practitioner Active Sta rt: March 20, 2025 Dr. Murtaza Hunter MD Nurse Practitioner Active Start: March 20, 2025 Dr. Antwan Gardner DO Nurse Practitioner Active S tart: March 20, 2025 Dr. Abdirashid Smith MD Nurse Practitioner Active Start: March 20, 2025 Dr. Reginaldo Fatima MD Nurse Practitioner Active Start: March 20, 2025 Dr. Alden Arcos MD Nurse Practitioner Active Start: March 20, 2025 Dr. Rosalind Key MD Nurse Practitioner Active Start: March Dr. Jose Angel Handley MD Nurse Practitioner Active S tart: March 20, 2025 Dr. Petros Akbar MD Nurse Practitioner Active St art: March 20, 2025 Dr. Lamin Campos MD Nurse Practitioner Active S tart: March 20, 2025 Dr. Sarah Hicks MD Nurse Practitioner Active Start: March 20, 2025 Dr. Al Angel MD Nurse Practitioner Active Start: March 20, 2025 Dr. Ruma Barnes MD Nurse Practitioner Active Start: March 20, 2025 Dr. Travis Daley MD Nurse Practitioner Active Start: March 20, 2025 Dr. Butch Ospina MD Nurse Practitioner Active Start: March 20, 2025 Dr. John Shepard MD Nurse Practitioner Active Start: March 20, 2025 Dr. Angel Alva DO Nurse Practitioner Active Start: March 20, 2025 Dr. Alina Garcia MD Nurse Practitioner Active St art: March 20, 2025 Dr. Roopa Sands MD Nurse Practitioner Active Start: March 20, 2025 Dr. Hermann Can DO Nurse Practitioner Active Start: March 20, 2025 Dr. Cuate Rao MD Nurse Practitioner Active Start: March 20, 2025 Dr. Celestino Gallagher MD Nurse Practitioner Active Start: March 20, 2025 Dr. Tacos Hollins MD Nurse Practitioner Active Start: March Dr. John Quinn MD Nurse Practitioner Active Start: March 20, 2025 Jodi Al NP, [employer]OM SEAMSTRESS-C Nurse Practitioner Active Start: March 20, 2025 Sahara Chen [employer] SE[employer]ESS-C Nurse Practitioner Active Start: March 20, 2025 Dr. Otilia Hernandez MD Attending physician Active Start: March 20, 2025 Dr. Otilia Hernandez MD Nurse Practitioner Active Start: March 20, 2025 Dr. Sixto Andrade MD Nurse Practitioner Active Start: March 20, 2025 Team Status: Active Member Role/Relationship Status Dates Dr. Kamar Grimes MD Primary care physician Active Start: March 21, 2025 Dr. Deion Levy MD Emergency Department Physician Active Start: March 21, 2025 Dr. Emili Lee MD Admitting physician Active Start: March 21, 2025 Dr. Emili Lee MD Nurse Practitioner Active Start: March 21, 2025 Dr. Wally Waddell MD Nurse Practitioner Active Start: March 21, 2025 Dr. Garrick Staples MD Nurse Practitioner Active Sta rt: March 21, 2025 Dr. Murtaza Hunter MD Nurse Practitioner Active Start: March 21, 2025 Dr. Antwan Gardner DO Attending physician Active Start: March 21, 2025 Dr. Antawn Gardner DO Nurse Practitioner Active S tart: March 21, 2025 Dr. Abdirashid Smith MD Nurse Practitioner Active Start: March 21, 2025 Dr. Reginaldo Fatima MD Nurse Practitioner Active Start: March 21, 2025 Dr. Alden Arcos MD Nurse Practitioner Active Start: March 21, 2025 Dr. Rosalind Key MD Nurse Practitioner Active Start: March Dr. Jose Angel Handley MD Nurse Practitioner Active S tart: March 21, 2025 Dr. Petros Akbar MD Nurse Practitioner Active St art: March 21, 2025 Dr. Lamin Campos MD Nurse Practitioner Active S tart: March 21, 2025 Dr. Sarah Hicks MD Nurse Practitioner Active Start: March 21, 2025 Dr. Al Angel MD Nurse Practitioner Active Start: March 21, 2025 Dr. Ruma Barnes MD Nurse Practitioner Active Start: March 21, 2025 Dr. Travis Daley MD Nurse Practitioner Active Start: March 21, 2025 Dr. Butch Ospina MD Nurse Practitioner Active Start: March 21, 2025 Dr. John Shepard MD Nurse Practitioner Active Start: March 21, 2025 Dr. Angel Alva DO Nurse Practitioner Active Start: March 21, 2025 Dr. Alina Garcia MD Nurse Practitioner Active St art: March 21, 2025 Dr. Roopa Sands MD Nurse Practitioner Active Start: March 21, 2025 Dr. Hermann Can DO Nurse Practitioner Active Start: March 21, 2025 Dr. Cuate Rao MD Nurse Practitioner Active Start: March 21, 2025 Dr. Celestino Gallagher MD Nurse Practitioner Active Start: March 21, 2025 Dr. Tacos Hollins MD Nurse Practitioner Active Start: March Dr. John Quinn MD Nurse Practitioner Active Start: March 21, 2025 Jodi Al NP, C[employer]OM SEAMSTRESS-C Nurse Practitioner Active Start: March 21, 2025 Sahara Chen NP-C Nurse Practitioner Active Start: March 21, 2025 Dr. Otilia Hernandez MD Nurse Practitioner Active Start: March 21, 2025 Dr. Sixto Andrade MD Nurse Practitioner Active Start: March 21, 2025 Team Status: Active Member Role/Relationship Status Dates Dr. Kamar Grimes MD Primary care physician Active Start: March 21, 2025 Dr. Deion Levy MD Emergency Department Physician Active Start: March 21, 2025 Dr. Emili Lee MD Admitting physician Active Start: March 21, 2025 Dr. Emili Lee MD Nurse Practitioner Active Start: March 21, 2025 Dr. Wally Waddell MD Nurse Practitioner Active Start: March 21, 2025 Dr. Garrick Staples MD Nurse Practitioner Active Sta rt: March 21, 2025 Dr. Murtaza Hunter MD Nurse Practitioner Active Start: March 21, 2025 Dr. Antwan Gardner DO Nurse Practitioner Active S tart: March 21, 2025 Dr. Abdirashid Smith MD Nurse Practitioner Active Start: March 21, 2025 Dr. Reginaldo Fatima MD Nurse Practitioner Active Start: March 21, 2025 Dr. Alden Arcos MD Nurse Practitioner Active Start: March 21, 2025 Dr. Rosalind Key MD Nurse Practitioner Active Start: March Dr. Jose Angel Handley MD Nurse Practitioner Active S tart: March 21, 2025 Dr. Petros Akbar MD Nurse Practitioner Active St art: March 21, 2025 Dr. Lamin Campos MD Nurse Practitioner Active S tart: March 21, 2025 Dr. Sarah Hicks MD Nurse Practitioner Active Start: March 21, 2025 Dr. Al Angel MD Nurse Practitioner Active Start: March 21, 2025 Dr. Ruma Barnes MD Nurse Practitioner Active Start: March 21, 2025 Dr. Travis Daley MD Nurse Practitioner Active Start: March 21, 2025 Dr. Butch Ospina MD Nurse Practitioner Active Start: March 21, 2025 Dr. John Shepard MD Nurse Practitioner Active Start: March 21, 2025 Dr. Angel Alva DO Nurse Practitioner Active Start: March 21, 2025 Dr. Alina Garcia MD Nurse Practitioner Active St art: March 21, 2025 Dr. Roopa Sands MD Nurse Practitioner Active Start: March 21, 2025 Dr. Hermann Can DO Nurse Practitioner Active Start: March 21, 2025 Dr. Cuate Rao MD Nurse Practitioner Active Start: March 21, 2025 Dr. Celestino Gallagher MD Nurse Practitioner Active Start: March 21, 2025 Dr. Tacos Hollins MD Nurse Practitioner Active Start: March Dr. John Quinn MD Nurse Practitioner Active Start: March 21, 2025 Jodi Al NP, C[employer] SEAMSTRESS-C Nurse Practitioner Active Start: March 21, 2025 Sahara Chen NP-C Nurse Practitioner Active Start: March 21, 2025 Dr. Otilia Hernandez MD Attending physician Active Start: March 21, 2025 Dr. Otilia Hernandez MD Nurse Practitioner Active Start: March 21, 2025 Dr. Sixto Andrade MD Nurse Practitioner Active Start: March 21, 2025 Team Status: Active Member Role/Relationship Status Dates Dr. Kamar Grimes MD Primary care physician Active Start: March 22, 2025 Dr. Deion Levy MD Emergency Department Physician Active Start: March 22, 2025 Dr. Emili Lee MD Admitting physician Active Start: March 22, 2025 Dr. Emili Lee MD Nurse Practitioner Active Start: March 22, 2025 Dr. Otilia Hernandez MD Attending physician Active Start: March 22, 2025 Dr. Otilia Hernandez MD Nurse Practitioner Active Start: March 22, 2025 Dr. Sixto Andrade MD Nurse Practitioner Active Start: March 22, 2025 Dr. Wally Waddell MD Nurse Practitioner Active Start: March 22, 2025 Dr. Garrick Staples MD Nurse Practitioner Active Sta rt: March 22, 2025 Dr. Murtaza Hunter MD Nurse Practitioner Active Start: March 22, 2025 Dr. Antwan Brown , DO Nurse Practitioner Active S tart: March 22, 2025 Dr. Abdirashid Smith MD Nurse Practitioner Active Start: March 22, 2025 Dr. Reginaldo Fatima MD Nurse Practitioner Active Start: March 22, 2025 Dr. Alden Arcos MD Nurse Practitioner Active Start: March 22, 2025 Dr. Rosalind Key MD Nurse Practitioner Active Start: March Dr. Jose Angel Handley MD Nurse Practitioner Active S tart: March 22, 2025 Dr. Petros Akbar MD Nurse Practitioner Active St art: March 22, 2025 Dr. Lamin Campos MD Nurse Practitioner Active S tart: March 22, 2025 Dr. Sarah Hicks MD Nurse Practitioner Active Start: March 22, 2025 Dr. Al Angel MD Nurse Practitioner Active Start: March 22, 2025 Dr. Ruma Barnes MD Nurse Practitioner Active Start: March 22, 2025 Dr. Travis Daley MD Nurse Practitioner Active Start: March 22, 2025 Dr. Butch Ospina MD Nurse Practitioner Active Start: March 22, 2025 Dr. John Shepard MD Nurse Practitioner Active Start: March 22, 2025 Dr. Angel Alva , Nurse Practitioner Active Start: March 22, 2025 Dr. Alina Garcia MD Nurse Practitioner Active St art: March 22, 2025 Dr. Roopa Sands MD Nurse Practitioner Active Start: March 22, 2025 Dr. Hermann Can , Nurse Practitioner Active Start: March 22, 2025 Dr. Cuate Rao MD Nurse Practitioner Active Start: March 22, 2025 Dr. Celestino Gallagher MD Nurse Practitioner Active Start: March 22, 2025 Dr. Tacos Hollins MD Nurse Practitioner Active Start: March Dr. John Quinn MD Nurse Practitioner Active Start: March 22, 2025 Jodi Al CUSTOM SEAMSTRESS, C[employer] SEAMSTRESS-C Nurse Practitioner Active Start: March 22, 2025 Sahara Chen NP-C Nurse Practitioner Active Start: March 22, 2025 Team Status: Active Member Role/Relationship Status Dates Dr. Kamar Grimes MD Primary care physician Active Start: March 23, 2025 Dr. Deion Levy MD Emergency Department Physician Active Start: March 23, 2025 Dr. Emili Lee MD Admitting physician Active Start: March 23, 2025 Dr. Emili Lee MD Nurse Practitioner Active Start: March 23, 2025 Dr. Otilia Hernandez MD Attending physician Active Start: March 23, 2025 Dr. Otilia Hernandez MD Nurse Practitioner Active Start: March 23, 2025 Dr. Sixto Adnrade MD Nurse Practitioner Active Start: March 23, 2025 Dr. Wally Waddell MD Nurse Practitioner Active Start: March 23, 2025 Dr. Garrick Staples MD Nurse Practitioner Active Sta rt: March 23, 2025 Dr. Murtaza Hunter MD Nurse Practitioner Active Start: March 23, 2025 Dr. Antwan Gardner , Nurse Practitioner Active S tart: March 23, 2025 Dr. Abdiarshid Smith MD Nurse Practitioner Active Start: March 23, 2025 Dr. Reginaldo Fatima MD Nurse Practitioner Active Start: March 23, 2025 Dr. Alden Arcos MD Nurse Practitioner Active Start: March 23, 2025 Dr. Rosalind Key MD Nurse Practitioner Active Start: March Dr. Jose Angel Handley MD Nurse Practitioner Active S tart: March 23, 2025 Dr. Petros Akbar MD Nurse Practitioner Active St art: March 23, 2025 Dr. Lamin Campos MD Nurse Practitioner Active S tart: March 23, 2025 Dr. Sarah Hicks MD Nurse Practitioner Active Start: March 23, 2025 Dr. Al Angel MD Nurse Practitioner Active Start: March 23, 2025 Dr. Ruma Barnes MD Nurse Practitioner Active Start: March 23, 2025 Dr. Travis Daley MD Nurse Practitioner Active Start: March 23, 2025 Dr. Butch Ospina MD Nurse Practitioner Active Start: March 23, 2025 Dr. John Shepard MD Nurse Practitioner Active Start: March 23, 2025 Dr. Angel Alva , Nurse Practitioner Active Start: March 23, 2025 Dr. Alina Garcia MD Nurse Practitioner Active St art: March 23, 2025 Dr. Roopa Sands MD Nurse Practitioner Active Start: March 23, 2025 Dr. Hermann Can , Nurse Practitioner Active Start: March 23, 2025 Dr. Cuate Rao MD Nurse Practitioner Active Start: March 23, 2025 Dr. Celestino Gallagher MD Nurse Practitioner Active Start: March 23, 2025 Dr. Tacos Hollins MD Nurse Practitioner Active Start: March Dr. John Quinn MD Nurse Practitioner Active Start: March 23, 2025 Jodi Al NP, C[employer]OM SEAMSTRESS-C Nurse Practitioner Active Start: March 23, 2025 Sahara Chen NP-C Nurse Practitioner Active Start: March 23, 2025 Team Status: Active Member Role/Relationship Status Dates Dr. Kamar Grimes MD Primary care physician Active Start: March 24, 2025 Dr. Deion Levy MD Emergency Department Physician Active Start: March 24, 2025 Dr. Emili Lee MD Admitting physician Active Start: March 24, 2025 Dr. Emili Lee MD Nurse Practitioner Active Start: March 24, 2025 Dr. Sixto Andrade MD Nurse Practitioner Active Start: March 24, 2025 Dr. Wally Waddell MD Nurse Practitioner Active Start: March 24, 2025 Dr. Garrick Staples MD Nurse Practitioner Active Sta rt: March 24, 2025 Dr. Murtaza Hunter MD Nurse Practitioner Active Start: March 24, 2025 Dr. Antwan Gardner DO Nurse Practitioner Active S tart: March 24, 2025 Dr. Abdirashid Smith MD Nurse Practitioner Active Start: March 24, 2025 Dr. Reginaldo Fatima MD Nurse Practitioner Active Start: March 24, 2025 Dr. Alden Arcos MD Nurse Practitioner Active Start: March 24, 2025 Dr. Rosalind Key MD Nurse Practitioner Active Start: March Dr. Jose Angel Handley MD Nurse Practitioner Active S tart: March 24, 2025 Dr. Petros Akbar MD Nurse Practitioner Active St art: March 24, 2025 Dr. Lamin Campos MD Nurse Practitioner Active S tart: March 24, 2025 Dr. Sarah Hicks MD Nurse Practitioner Active Start: March 24, 2025 Dr. Al Angel MD Nurse Practitioner Active Start: March 24, 2025 Dr. Ruma Barnes MD Nurse Practitioner Active Start: March 24, 2025 Dr. Travis Daley MD Nurse Practitioner Active Start: March 24, 2025 Dr. Butch Ospina MD Nurse Practitioner Active Start: March 24, 2025 Dr. John Shepard MD Nurse Practitioner Active Start: March 24, 2025 Dr. Angel Alva , DO Nurse Practitioner Active Start: March 24, 2025 Dr. Alina Garcia MD Nurse Practitioner Active St art: March 24, 2025 Dr. Roopa Sands MD Nurse Practitioner Active Start: March 24, 2025 Dr. Hermann Can , Nurse Practitioner Active Start: March 24, 2025 Dr. Cuate Rao MD Nurse Practitioner Active Start: March 24, 2025 Dr. Celestino Gallagher MD Nurse Practitioner Active Start: March 24, 2025 Dr. Tacos Hollins MD Nurse Practitioner Active Start: March Dr. John Quinn MD Nurse Practitioner Active Start: March 24, 2025 Jodi Al CUSTOM SEAMSTRESS, C[employer]OM SEAMSTRESS-C Nurse Practitioner Active Start: March 24, 2025 Sahara Chen NP-C Nurse Practitioner Active Start: March 24, 2025 Dr. Karla Bustamante , Attending physician Active Start: March 24, 2025 Dr. Karla Bustamante , Nurse Practitioner Active S tart: March 24, 2025 Dr. Otilia Hernandez MD Nurse Practitioner Active Start: March 24, 2025 Team Status: Active Member Role/Relationship Status Dates Dr. Kamar Grimes MD Primary care physician Active Start: March 25, 2025 Dr. Deion Levy MD Emergency Department Physician Active Start: March 25, 2025 Dr. Emili Lee MD Admitting physician Active Start: March 25, 2025 Dr. Emili Lee MD Nurse Practitioner Active Start: March 25, 2025 Dr. Sixto Andrade MD Nurse Practitioner Active Start: March 25, 2025 Dr. Wally Waddell MD Nurse Practitioner Active Start: March 25, 2025 Dr. Garrick Staples MD Nurse Practitioner Active Sta rt: March 25, 2025 Dr. Murtaza Hunter MD Nurse Practitioner Active Start: March 25, 2025 DrStephanie Gardner DO Nurse Practitioner Active S tart: March 25, 2025 Dr. Abdirashid Smith MD Nurse Practitioner Active Start: March 25, 2025 Dr. Reginaldo Fatima MD Nurse Practitioner Active Start: March 25, 2025 Dr. Alden Arcos MD Nurse Practitioner Active Start: March 25, 2025 Dr. Rosalind Key MD Nurse Practitioner Active Start: March Dr. Jose Angel Handley MD Nurse Practitioner Active S tart: March 25, 2025 Dr. Petros Akbar MD Nurse Practitioner Active St art: March 25, 2025 Dr. Lamin Campos MD Nurse Practitioner Active S tart: March 25, 2025 Dr. Sarah Hicks MD Nurse Practitioner Active Start: March 25, 2025 Dr. Al Angel MD Nurse Practitioner Active Start: March 25, 2025 Dr. Ruma Barnes MD Nurse Practitioner Active Start: March 25, 2025 Dr. Travis Daley MD Nurse Practitioner Active Start: March 25, 2025 Dr. Butch Ospina MD Nurse Practitioner Active Start: March 25, 2025 Dr. John Shepard MD Nurse Practitioner Active Start: March 25, 2025 Dr. Angel Alva DO Nurse Practitioner Active Start: March 25, 2025 Dr. Alina Garcia MD Nurse Practitioner Active St art: March 25, 2025 Dr. Roopa Sands MD Nurse Practitioner Active Start: March 25, 2025 Dr. Hermann Can , Nurse Practitioner Active Start: March 25, 2025 Dr. Cuate Rao MD Nurse Practitioner Active Start: March 25, 2025 Dr. Celestino Gallagher MD Nurse Practitioner Active Start: March 25, 2025 Dr. Tacos Holilns MD Nurse Practitioner Active Start: March Dr. John Quinn MD Nurse Practitioner Active Start: March 25, 2025 Jodi Al NP, C[employer]OM SEAMSTRESS-C Nurse Practitioner Active Start: March 25, 2025 Sahara Chen , C[employer]OM SEAMSTRESS-C Nurse Practitioner Active Start: March 25, 2025 Dr. Karla Bustamante , Attending physician Active Start: March 25, 2025 Dr. Karla Bustamante , Nurse Practitioner Active S tart: March 25, 2025 Dr. Otilia Hernandez MD Nurse Practitioner Active Start: March 25, 2025 Team Status: Active Member Role/Relationship Status Dates Dr. Kamar Grimes MD Primary care physician Active Start: March 26, 2025 Dr. Deion Levy MD Emergency Department Physician Active Start: March 26, 2025 Dr. Emili Lee MD Admitting physician Active Start: March 26, 2025 Dr. Emili Lee MD Nurse Practitioner Active Start: March 26, 2025 Dr. Sixto Andrade MD Nurse Practitioner Active Start: March 26, 2025 Dr. Wally Waddell MD Nurse Practitioner Active Start: March 26, 2025 Dr. Garrick Staples MD Nurse Practitioner Active Sta rt: March 26, 2025 Dr. Murtaza Hunter MD Nurse Practitioner Active Start: March 26, 2025 Dr. Antwan Gardner , Nurse Practitioner Active S tart: March 26, 2025 Dr. Abdirashid Smith MD Nurse Practitioner Active Start: March 26, 2025 Dr. Reginaldo Fatima MD Nurse Practitioner Active Start: March 26, 2025 Dr. Alden Arcos MD Nurse Practitioner Active Start: March 26, 2025 Dr. Rosalind Key MD Nurse Practitioner Active Start: March Dr. Jose Angel Handley MD Nurse Practitioner Active S tart: March 26, 2025 Dr. Petros Akbar MD Nurse Practitioner Active St art: March 26, 2025 Dr. Lamin Campos MD Nurse Practitioner Active S tart: March 26, 2025 Dr. Sarah Hicks MD Nurse Practitioner Active Start: March 26, 2025 Dr. Al Angel MD Nurse Practitioner Active Start: March 26, 2025 Dr. Ruma Barnes MD Nurse Practitioner Active Start: March 26, 2025 Dr. Travis Daley MD Nurse Practitioner Active Start: March 26, 2025 Dr. Butch Ospina MD Nurse Practitioner Active Start: March 26, 2025 Dr. John Shepard MD Nurse Practitioner Active Start: March 26, 2025 Dr. Angel Alva , Nurse Practitioner Active Start: March 26, 2025 Dr. Alina Garcia MD Nurse Practitioner Active St art: March 26, 2025 Dr. Roopa Sands MD Nurse Practitioner Active Start: March 26, 2025 Dr. Hermann Can DO Nurse Practitioner Active Start: March 26, 2025 Dr. Cuate Rao MD Nurse Practitioner Active Start: March 26, 2025 Dr. Celestino Gallagher MD Nurse Practitioner Active Start: March 26, 2025 Dr. Tacos Hollins MD Nurse Practitioner Active Start: March Dr. John Quinn MD Nurse Practitioner Active Start: March 26, 2025 Jodi Al CUSTOM SEAMSTRESS, CUSTOM SEAMSTRESS-C Nurse Practitioner Active Start: March 26, 2025 Sahara Chen NP-C Nurse Practitioner Active Start: March 26, 2025 Dr. Karla Bustamante DO Attending physician Active Start: March 26, 2025 Dr. Karla Bustamante , Nurse Practitioner Active S tart: March 26, 2025 Dr. Otilia Hernandez MD Nurse Practitioner Active Start: March 26, 2025 Team Status: Active Member Role/Relationship Status Dates Dr. Kamar Grimes MD Primary care physician Active Start: March 19, 2025 Dr. Deion Levy MD Emergency Department Physician Active Start: March 19, 2025 Dr. Emili Lee MD Admitting physician Active Start: March 19, 2025 Dr. Emili Lee MD Referring Provider Active Start: March 19, 2025 Dr. Emili Lee MD Nurse Practitioner Active Start: March 19, 2025 Dr. Wally Waddell MD Nurse Practitioner Active Start: March 19, 2025 Dr. Garrick Staples MD Nurse Practitioner Active Sta rt: March 19, 2025 Dr. Murtaza Hunter MD Nurse Practitioner Active Start: March 19, 2025 Dr. Antwan Gardner DO Attending physician Active Start: March 19, 2025 Dr. Antwan Gardner DO Nurse Practitioner Active S tart: March 19, 2025 Dr. Abdirashid Smith MD Nurse Practitioner Active Start: March 19, 2025 Dr. Reginaldo Fatima MD Nurse Practitioner Active Start: March 19, 2025 Dr. Alden Arcos MD Nurse Practitioner Active Start: March 19, 2025 Dr. Rosalind Key MD Nurse Practitioner Active Start: March Dr. Jose Angel Handley MD Nurse Practitioner Active S tart: March 19, 2025 Dr. Petros Akbar MD Nurse Practitioner Active St art: March 19, 2025 Dr. Lamin Campos MD Nurse Practitioner Active S tart: March 19, 2025 Dr. Sarah Hicks MD Nurse Practitioner Active Start: March 19, 2025 Dr. Al Angel MD Nurse Practitioner Active Start: March 19, 2025 Dr. Ruma Barnes MD Nurse Practitioner Active Start: March 19, 2025 Dr. Travis Daley MD Nurse Practitioner Active Start: March 19, 2025 Dr. Butch Ospina MD Nurse Practitioner Active Start: March 19, 2025 Dr. John Shepard MD Nurse Practitioner Active Start: March 19, 2025 Dr. Angel Alva DO Nurse Practitioner Active Start: March 19, 2025 Dr. Alina Garcia MD Nurse Practitioner Active St art: March 19, 2025 Dr. Roopa Sands MD Nurse Practitioner Active Start: March 19, 2025 Dr. Hermann Can DO Nurse Practitioner Active Start: March 19, 2025 Dr. Cuate Rao MD Nurse Practitioner Active Start: March 19, 2025 Dr. Celestino Gallagher MD Nurse Practitioner Active Start: March 19, 2025 Dr. Tacos Hollins MD Nurse Practitioner Active Start: March Dr. John Quinn MD Nurse Practitioner Active Start: March 19, 2025 Jodi Al CUSTOM SEAMSTRESS, CUSTOM SEAMSTRESS-C Nurse Practitioner Active Start: March 19, 2025 Sahara Chen NP-C Nurse Practitioner Active Start: March 19, 2025 Dr. Otilia Hernandez MD Nurse Practitioner Active Start: March 19, 2025 Team Status: Active Member Role/Relationship Status Dates Dr. Kamar Grimes MD Primary care physician Active Start: March 20, 2025 Dr. Deion Levy MD Emergency Department Physician Active Start: March 20, 2025 Dr. Emili Lee MD Admitting physician Active Start: March 20, 2025 Dr. Emili Lee MD Nurse Practitioner Active Start: March 20, 2025 Dr. Wally Wdadell MD Nurse Practitioner Active Start: March 20, 2025 Dr. Garrick Staples MD Nurse Practitioner Active Sta rt: March 20, 2025 Dr. Murtaza Hunter MD Nurse Practitioner Active Start: March 20, 2025 Dr. Antwan Gardner , Attending physician Active Start: March 20, 2025 Dr. Antwan Gardner , Nurse Practitioner Active S tart: March 20, 2025 Dr. Abdirashid Smith MD Nurse Practitioner Active Start: March 20, 2025 Dr. Reginaldo Fatima MD Nurse Practitioner Active Start: March 20, 2025 Dr. Alden Arcos MD Nurse Practitioner Active Start: March 20, 2025 Dr. Rosalind Key MD Nurse Practitioner Active Start: March Dr. Jose Angel Handley MD Nurse Practitioner Active S tart: March 20, 2025 Dr. Petros Akbar MD Nurse Practitioner Active St art: March 20, 2025 Dr. Lamin Campos MD Nurse Practitioner Active S tart: March 20, 2025 Dr. Sarah Hicks MD Nurse Practitioner Active Start: March 20, 2025 Dr. Al Angel MD Nurse Practitioner Active Start: March 20, 2025 Dr. Ruma Barnes MD Nurse Practitioner Active Start: March 20, 2025 Dr. Travis Daley MD Nurse Practitioner Active Start: March 20, 2025 Dr. Butch Ospina MD Nurse Practitioner Active Start: March 20, 2025 Dr. John Shepard MD Nurse Practitioner Active Start: March 20, 2025 Dr. Angel Alva , Nurse Practitioner Active Start: March 20, 2025 Dr. Alina Garcia MD Nurse Practitioner Active St art: March 20, 2025 Dr. Roopa Sands MD Nurse Practitioner Active Start: March 20, 2025 Dr. Hermann Can , Nurse Practitioner Active Start: March 20, 2025 Dr. Cuate Rao MD Nurse Practitioner Active Start: March 20, 2025 Dr. Celestino Gallagher MD Nurse Practitioner Active Start: March 20, 2025 Dr. Tacos Hollins MD Nurse Practitioner Active Start: March Dr. John Quinn MD Nurse Practitioner Active Start: March 20, 2025 Jodi Al CUSTOM SEAMSTRESS, CUSTOM SEAMSTRESS-C Nurse Practitioner Active Start: March 20, 2025 Sahara Chen , TARAH-C Nurse Practitioner Active Start: March 20, 2025 Dr. Otilia Hernandez MD Referring Provider Active Start: March 20, 2025 Dr. Otilia Hernandez MD Nurse Practitioner Active Start: March 20, 2025 Dr. Saul Kearney MD Nurse Practitioner Active S tart: March 20, 2025 Dr. Sixto Andrade MD Nurse Practitioner Active Start: March 20, 2025 Team Status: Active Member Role/Relationship Status Dates Dr. Kamar Grimes MD Primary care physician Active Start: March 21, 2025 Dr. Deion Levy MD Emergency Department Physician Active Start: March 21, 2025 Dr. Emili Lee MD Admitting physician Active Start: March 21, 2025 Dr. Emili Lee MD Nurse Practitioner Active Start: March 21, 2025 Dr. Wally Waddell MD Nurse Practitioner Active Start: March 21, 2025 Dr. Garrick Staples MD Nurse Practitioner Active Sta rt: March 21, 2025 Dr. Murtaza Hunter MD Nurse Practitioner Active Start: March 21, 2025 Dr. Antwan Gardner DO Attending physician Active Start: March 21, 2025 Dr. Antwan Gardner DO Nurse Practitioner Active S tart: March 21, 2025 Dr. Abdirashid Smith MD Nurse Practitioner Active Start: March 21, 2025 Dr. Reginaldo Fatima MD Nurse Practitioner Active Start: March 21, 2025 Dr. Alden Arcos MD Nurse Practitioner Active Start: March 21, 2025 Dr. Rosalind Key MD Nurse Practitioner Active Start: March Dr. Jose Angel Handley MD Nurse Practitioner Active S tart: March 21, 2025 Dr. Petros Akbar MD Nurse Practitioner Active St art: March 21, 2025 Dr. Lamin Campos MD Nurse Practitioner Active S tart: March 21, 2025 Dr. Sarah Hicks MD Nurse Practitioner Active Start: March 21, 2025 Dr. Al Angel MD Nurse Practitioner Active Start: March 21, 2025 Dr. Ruma Barnes MD Nurse Practitioner Active Start: March 21, 2025 Dr. Travis Daley MD Nurse Practitioner Active Start: March 21, 2025 Dr. Butch Ospina MD Nurse Practitioner Active Start: March 21, 2025 Dr. John Shepard MD Nurse Practitioner Active Start: March 21, 2025 Dr. Angel Alva DO Nurse Practitioner Active Start: March 21, 2025 Dr. Alina Garcia MD Nurse Practitioner Active St art: March 21, 2025 Dr. Roopa Sands MD Nurse Practitioner Active Start: March 21, 2025 Dr. Hermann Can DO Nurse Practitioner Active Start: March 21, 2025 Dr. Cuate Rao MD Nurse Practitioner Active Start: March 21, 2025 Dr. Celestino Gallagher MD Nurse Practitioner Active Start: March 21, 2025 Dr. Tacos Hollins MD Nurse Practitioner Active Start: March Dr. John Quinn MD Nurse Practitioner Active Start: March 21, 2025 Jodi Al NP, [employer]-C Nurse Practitioner Active Start: March 21, 2025 Sahara Chen NP-C Nurse Practitioner Active Start: March 21, 2025 Dr. Otilia Hernandez MD Referring Provider Active Start: March 21, 2025 Dr. Otilia Hernandez MD Nurse Practitioner Active Start: March 21, 2025 Dr. Sixto Andrade MD Nurse Practitioner Active Start: March 21, 2025 Team Status: Inactive Member Role/Relationship Status Dates Dr. Kamar Grimes MD Primary care physician Active Start: April 09, 2025 End: April 09, 2025 Dr. Kamar Grimes MD Attending physician Active S tart: April 09, 2025 End: April 09, 2025 Team Status: Inactive Member Role/Relationship Status Dates Dr. Kamar Grimes MD Primary care physician Active Start: April 16, 2025 End: April 16, 2025 Dr. Kamar Grimes MD Referring Provider Active St art: April 16, 2025 End: April 16, 2025 Dr. Mike Reddy MD Attending physician Active Start: April 16, 2025 End: April 16, 2025 Team Status: Inactive Member Role/Relationship Status Dates Dr. Kamar Grimes MD Primary care physician Active Start: April 16, 2025 End: April 16, 2025 Dr. Kamar Grimes MD Attending physician Active S tart: April 16, 2025 End: April 16, 2025 Dr. Kamar Grimes MD Referring Provider Active St art: April 16, 2025 End: April 16, 2025 Team Status: Inactive Member Role/Relationship Status Dates Dr. Kamar Grimes MD Primary care physician Active Start: April 18, 2025 End: April 23, 2025 Dr. Deion Levy MD Emergency Department Physician Active Start: April 18, 2025 End: April 23, 2025 Dr. Jermaine Simms , Admitting physician Activ e Start: April 18, 2025 End: April 23, 2025 Dr. Jermaine Simms , Nurse Practitioner Active Start: April 18, 2025 End: April 23, 2025 Dr. Garfield Pierson MD Attending physician Active Start: April 18, 2025 End: April 23, 2025 Dr. Wally Waddell MD Nurse Practitioner Active Start: April 18, 2025 End: April 23, 2025 Dr. Garrick Staples MD Nurse Practitioner Active Sta rt: April 18, 2025 End: April 23, 2025 Dr. Murtaza Hunter MD Nurse Practitioner Active Start: April 18, 2025 End: April 23, 2025 Dr. Antwan Gardner , Nurse Practitioner Active S tart: April 18, 2025 End: April 23, 2025 Dr. Abdirashid Smith MD Nurse Practitioner Active Start: April 18, 2025 End: April 23, 2025 Dr. Gemini Briceño , Nurse Practitioner Active S tart: April 18, 2025 End: April 23, 2025 Dr. Reginaldo Fatima MD Nurse Practitioner Active Start: April 18, 2025 End: April 23, 2025 Dr. Rhonda Arceo MD Nurse Practitioner Active Start: April 18, 2025 End: April 23, 2025 Dr. Alden Arcos MD Nurse Practitioner Active Start: April 18, 2025 End: April 23, 2025 Dr. Rosalind Key MD Nurse Practitioner Active Start: April 18, 2025 End: April 23, 2025 Dr. Jose Angel Handley MD Nurse Practitioner Active S tart: April 18, 2025 End: April 23, 2025 Dr. Petros Akbar MD Nurse Practitioner Active St art: April 18, 2025 End: April 23, 2025 Dr. Julissa Lawrence MD Nurse Practitioner Active Start: April 18, 2025 End: April 23, 2025 Dr. Jones Galindo MD Nurse Practitioner Active Start: April 18, 2025 End: April 23, 2025 Dr. Bennett Peñaloza MD Nurse Practitioner Active Start: April 18, 2025 End: April 23, 2025 Dr. Lamin Campos MD Nurse Practitioner Active S tart: April 18, 2025 End: April 23, 2025 Dr. Zakia Love MD Nurse Practitioner Active Start: April 18, 2025 End: April 23, 2025 Dr. Sarah Hicks MD Nurse Practitioner Active Start: April 18, 2025 End: April 23, 2025 Dr. Al Angel MD Nurse Practitioner Active Start: April 18, 2025 End: April 23, 2025 Dr. Shaila Lai MD Nurse Practitioner Active Start: April 18, 2025 End: April 23, 2025 Dr. Nayely Givens DO Nurse Practitioner Active Start: April 18, 2025 End: April 23, 2025 Dr. Jamie Sawant MD Nurse Practitioner Active St art: April 18, 2025 End: April 23, 2025 Dr. Brenna Young MD Nurse Practitioner Active Start: April 18, 2025 End: April 23, 2025 Dr. Ruma Barnes MD Nurse Practitioner Active Start: April 18, 2025 End: April 23, 2025 Dr. Ritu Felipe MD Nurse Practitioner Active Start: April 18, 2025 End: April 23, 2025 Dr. Mari Fallon DO Nurse Practitioner Active Start: April 18, 2025 End: April 23, 2025 Dr. Brenna Pierce MD Nurse Practitioner Active Start: April 18, 2025 End: April 23, 2025 Dr. Luke Rojas , Nurse Practitioner Active Start: April 18, 2025 End: April 23, 2025 Dr. Travis Daley MD Nurse Practitioner Active Start: April 18, 2025 End: April 23, 2025 Dr. Butch Ospina MD Nurse Practitioner Active Start: April 18, 2025 End: April 23, 2025 Dr. Elva Mixon MD Nurse Practitioner Active Start: April End: April 23, 2025 Dr. John Shepard MD Nurse Practitioner Active Start: April 18, 2025 End: April 23, 2025 Dr. Angel Alva , Nurse Practitioner Active Start: April 18, 2025 End: April 23, 2025 Dr. Alina Garcia MD Nurse Practitioner Active St art: April 18, 2025 End: April 23, 2025 Dr. Roopa Sands MD Nurse Practitioner Active Start: April 18, 2025 End: April 23, 2025 Dr. Odilia Lockwood MD Nurse Practitioner Active St art: April 18, 2025 End: April 23, 2025 Dr. Adarsh Salcido MD Nurse Practitioner Active Start: April 18, 2025 End: April 23, 2025 Dr. Hermann Can , Nurse Practitioner Active Start: April 18, 2025 End: April 23, 2025 Dr. Gage Jenkins MD Nurse Practitioner Active S tart: April 18, 2025 End: April 23, 2025 Dr. Celestino Gallagher MD Nurse Practitioner Active Start: April 18, 2025 End: April 23, 2025 Dr. Tacos Hollins MD Nurse Practitioner Active Start: April 18, 2025 End: April 23, 2025 Dr. John Quinn MD Nurse Practitioner Active Start: April 18, 2025 End: April 23, 2025 Dr. Keya Basilio MD Nurse Practitioner Active Start: April 18, 2025 End: April 23, 2025 Team Status: Active Member Role/Relationship Status Dates Dr. Kamar Grimes MD Primary care physician Active Start: April 19, 2025 Dr. Deion Levy MD Emergency Department Physician Active Start: April 19, 2025 Dr. Jermaine Simms DO Admitting physician Active Start: April 19, 2025 Dr. Jermaine Simms DO Nurse Practitioner Active Start: April 19, 2025 Dr. Garfield Pierson MD Attending physician Active Start: April 19, 2025 Dr. Garfield Pierson MD Nurse Practitioner Active Start: April 19, 2025 Dr. Keya Basilio MD Nurse Practitioner Active Start: April 19, 2025 Team Status: Active Member Role/Relationship Status Dates Dr. Kamar Grimes MD Primary care physician Active Start: April 20, 2025 Dr. Deion Levy MD Emergency Department Physician Active Start: April 20, 2025 Dr. Jermaine Simms DO Admitting physician Activ e Start: April 20, 2025 Dr. Jermaine Simms DO Nurse Practitioner Active Start: April 20, 2025 Dr. Garfield Pierson MD Attending physician Active Start: April 20, 2025 Dr. Garfield Pierson MD Nurse Practitioner Active Start: April 20, 2025 Dr. Keya Basilio MD Nurse Practitioner Active Start: April 20, 2025 Dr. Wally Waddell MD Nurse Practitioner Active Start: April 20, 2025 Dr. Garrick Staples MD Nurse Practitioner Active Sta rt: April 20, 2025 Dr. Murtaza Hunter MD Nurse Practitioner Active Start: April 20, 2025 Dr. Antwan Gardner , Nurse Practitioner Active S tart: April 20, 2025 Dr. Abdirashid Smith MD Nurse Practitioner Active Start: April 20, 2025 Dr. Gemini Briceño , Nurse Practitioner Active S tart: April 20, 2025 Dr. Reginaldo Fatima MD Nurse Practitioner Active Start: April 20, 2025 Dr. Rhonda Arceo MD Nurse Practitioner Active Start: April 20, 2025 Dr. Alden Arcos MD Nurse Practitioner Active Start: April 20, 2025 Dr. Rosalind Key MD Nurse Practitioner Active Start: April 20, 2025 Dr. Jose Angel Handley MD Nurse Practitioner Active S tart: April 20, 2025 Dr. Petros Akbar MD Nurse Practitioner Active St art: April 20, 2025 Dr. Julissa Lawrence MD Nurse Practitioner Active Start: April 20, 2025 Dr. Jones Galindo MD Nurse Practitioner Active Start: April 20, 2025 Dr. Bennett Peñaloza MD Nurse Practitioner Active Start: April 20, 2025 Dr. Lamin Campos MD Nurse Practitioner Active S tart: April 20, 2025 Dr. Zakia Love MD Nurse Practitioner Active Start: April 20, 2025 Dr. Sarah Hicks MD Nurse Practitioner Active Start: April 20, 2025 Dr. Al Angel MD Nurse Practitioner Active Start: April 20, 2025 Dr. Shaila Lai MD Nurse Practitioner Active Start: April 20, 2025 Dr. Nayely Givens , Nurse Practitioner Active Start: April 20, 2025 Dr. Jamie Sawant MD Nurse Practitioner Active St art: April 20, 2025 Dr. Brenna Young MD Nurse Practitioner Active Start: April 20, 2025 Dr. Ruma Barnes MD Nurse Practitioner Active Start: April 20, 2025 Dr. Ritu Felipe MD Nurse Practitioner Active Start: April 20, 2025 Dr. Mari Fallon , Nurse Practitioner Active Start: April 20, 2025 Dr. Brenna Pierce MD Nurse Practitioner Active Start: April 20, 2025 Dr. Luke Rojas , Nurse Practitioner Active Start: April 20, 2025 Dr. Travis Daley MD Nurse Practitioner Active Start: April 20, 2025 Dr. Butch Ospina MD Nurse Practitioner Active Start: April 20, 2025 Dr. Elva Mixon MD Nurse Practitioner Active Start: April Dr. John Shepard MD Nurse Practitioner Active Start: April 20, 2025 Dr. Angel Alva , DO Nurse Practitioner Active Start: April 20, 2025 Dr. Alina Garcia MD Nurse Practitioner Active St art: April 20, 2025 Dr. Roopa Sands MD Nurse Practitioner Active Start: April 20, 2025 Dr. Odilia Lockwood MD Nurse Practitioner Active St art: April 20, 2025 Dr. Adarsh Salcido MD Nurse Practitioner Active Start: April 20, 2025 Dr. Hermann Can , Nurse Practitioner Active Start: April 20, 2025 Dr. Gage Jenkins MD Nurse Practitioner Active S tart: April 20, 2025 Dr. Celestino Gallagher MD Nurse Practitioner Active Start: April 20, 2025 Dr. Tacos Hollins MD Nurse Practitioner Active Start: April 20, 2025 Dr. John Quinn MD Nurse Practitioner Active Start: April 20, 2025 Team Status: Active Member Role/Relationship Status Dates Dr. Kamar Grimes MD Primary care physician Active Start: April 21, 2025 Dr. Deion Levy MD Emergency Department Physician Active Start: April 21, 2025 Dr. Jermaine Simms DO Admitting physician Activ e Start: April 21, 2025 Dr. Jermaine Simms DO Nurse Practitioner Active Start: April 21, 2025 Dr. Garfield Pierson MD Attending physician Active Start: April 21, 2025 Dr. Garfield Pierson MD Nurse Practitioner Active Start: April 21, 2025 Dr. Wally Waddell MD Nurse Practitioner Active Start: April 21, 2025 Dr. Garrick Staples MD Nurse Practitioner Active Sta rt: April 21, 2025 Dr. Murtaza Hunter MD Nurse Practitioner Active Start: April 21, 2025 Dr. Antwan Gardner , Nurse Practitioner Active S tart: April 21, 2025 Dr. Abdirashid Smith MD Nurse Practitioner Active Start: April 21, 2025 Dr. Gemini Briceño , Nurse Practitioner Active S tart: April 21, 2025 Dr. Reginaldo Fatima MD Nurse Practitioner Active Start: April 21, 2025 Dr. Rhonda Arceo MD Nurse Practitioner Active Start: April 21, 2025 Dr. Alden Arcos MD Nurse Practitioner Active Start: April 21, 2025 Dr. Rosalind Key MD Nurse Practitioner Active Start: April 21, 2025 Dr. Jose Angel Handley MD Nurse Practitioner Active S tart: April 21, 2025 Dr. Petros Akbar MD Nurse Practitioner Active St art: April 21, 2025 Dr. Julissa Lawrence MD Nurse Practitioner Active Start: April 21, 2025 Dr. Jones Galindo MD Nurse Practitioner Active Start: April 21, 2025 Dr. Bennett Peñaloza MD Nurse Practitioner Active Start: April 21, 2025 Dr. Lamin Campos MD Nurse Practitioner Active S tart: April 21, 2025 Dr. Zakia Love MD Nurse Practitioner Active Start: April 21, 2025 Dr. Sarah Hicks MD Nurse Practitioner Active Start: April 21, 2025 Dr. Al Angel MD Nurse Practitioner Active Start: April 21, 2025 Dr. Shaila Lai MD Nurse Practitioner Active Start: April 21, 2025 Dr. Nayely Givens , DO Nurse Practitioner Active Start: April 21, 2025 Dr. Jamie Sawant MD Nurse Practitioner Active St art: April 21, 2025 Dr. Brenna Young MD Nurse Practitioner Active Start: April 21, 2025 Dr. Ruma Barnes MD Nurse Practitioner Active Start: April 21, 2025 Dr. Ritu Felipe MD Nurse Practitioner Active Start: April 21, 2025 Dr. Mari Fallon , DO Nurse Practitioner Active Start: April 21, 2025 Dr. Brenna Pierce MD Nurse Practitioner Active Start: April 21, 2025 Dr. Luke Rojas , Nurse Practitioner Active Start: April 21, 2025 Dr. Travis Daley MD Nurse Practitioner Active Start: April 21, 2025 Dr. Butch Ospina MD Nurse Practitioner Active Start: April 21, 2025 Dr. Elva Mixon MD Nurse Practitioner Active Start: April Dr. John Shepard MD Nurse Practitioner Active Start: April 21, 2025 Dr. Angel Alva , DO Nurse Practitioner Active Start: April 21, 2025 Dr. Alina Garcia MD Nurse Practitioner Active St art: April 21, 2025 Dr. Roopa Sands MD Nurse Practitioner Active Start: April 21, 2025 Dr. Odilia Lockwood MD Nurse Practitioner Active St art: April 21, 2025 Dr. Adarsh Salcido MD Nurse Practitioner Active Start: April 21, 2025 Dr. Hermann Can , DO Nurse Practitioner Active Start: April 21, 2025 Dr. Gage Jenkins MD Nurse Practitioner Active S tart: April 21, 2025 Dr. Celestino Gallagher MD Nurse Practitioner Active Start: April 21, 2025 Dr. Tacos Hollins MD Nurse Practitioner Active Start: April 21, 2025 Dr. John Quinn MD Nurse Practitioner Active Start: April 21, 2025 Dr. Keya Basilio MD Nurse Practitioner Active Start: April 21, 2025 Team Status: Active Member Role/Relationship Status Dates Dr. Kamar Grimes MD Primary care physician Active Start: April 22, 2025 Dr. Deion Levy MD Emergency Department Physician Active Start: April 22, 2025 Dr. Jermaine Simms , Admitting physician Activ e Start: April 22, 2025 Dr. Jermaine Simms , Nurse Practitioner Active Start: April 22, 2025 Dr. Garfield Pierson MD Attending physician Active Start: April 22, 2025 Dr. Garfield Pierson MD Nurse Practitioner Active Start: April 22, 2025 Dr. Wally Waddell MD Nurse Practitioner Active Start: April 22, 2025 Dr. Garrick Staples MD Nurse Practitioner Active Sta rt: April 22, 2025 Dr. Murtaza Hunter MD Nurse Practitioner Active Start: April 22, 2025 Dr. Antwan Gardner , Nurse Practitioner Active S tart: April 22, 2025 Dr. Abdirashid Smith MD Nurse Practitioner Active Start: April 22, 2025 Dr. Gemini Briceño , DO Nurse Practitioner Active S tart: April 22, 2025 Dr. Reginaldo Fatima MD Nurse Practitioner Active Start: April 22, 2025 Dr. Rhonda Arceo MD Nurse Practitioner Active Start: April 22, 2025 Dr. Alden Arcos MD Nurse Practitioner Active Start: April 22, 2025 Dr. Rosalind Key MD Nurse Practitioner Active Start: April 22, 2025 Dr. Jose Angel Handley MD Nurse Practitioner Active S tart: April 22, 2025 Dr. Petros Akbar MD Nurse Practitioner Active St art: April 22, 2025 Dr. Julissa Lawrence MD Nurse Practitioner Active Start: April 22, 2025 Dr. Jones Galindo MD Nurse Practitioner Active Start: April 22, 2025 Dr. Bennett Peñaloza MD Nurse Practitioner Active Start: April 22, 2025 Dr. Lamin Campos MD Nurse Practitioner Active S tart: April 22, 2025 Dr. Zakia Love MD Nurse Practitioner Active Start: April 22, 2025 Dr. Sarah Hicks MD Nurse Practitioner Active Start: April 22, 2025 Dr. Al Angel MD Nurse Practitioner Active Start: April 22, 2025 Dr. Shaila Lai MD Nurse Practitioner Active Start: April 22, 2025 Dr. Nayely Givens , DO Nurse Practitioner Active Start: April 22, 2025 Dr. Jamie Sawant MD Nurse Practitioner Active St art: April 22, 2025 Dr. Brenna Young MD Nurse Practitioner Active Start: April 22, 2025 Dr. Ruma Barnes MD Nurse Practitioner Active Start: April 22, 2025 Dr. Ritu Felipe MD Nurse Practitioner Active Start: April 22, 2025 Dr. Mari Fallon , DO Nurse Practitioner Active Start: April 22, 2025 Dr. Brenna Pierce MD Nurse Practitioner Active Start: April 22, 2025 Dr. Luke Rojas , DO Nurse Practitioner Active Start: April 22, 2025 Dr. Travis Daley MD Nurse Practitioner Active Start: April 22, 2025 Dr. Butch Ospina MD Nurse Practitioner Active Start: April 22, 2025 Dr. Elva Mixon MD Nurse Practitioner Active Start: April Dr. John Shepard MD Nurse Practitioner Active Start: April 22, 2025 Dr. Angel Alva , Nurse Practitioner Active Start: April 22, 2025 Dr. Alina Garcia MD Nurse Practitioner Active St art: April 22, 2025 Dr. Roopa Sands MD Nurse Practitioner Active Start: April 22, 2025 Dr. Odilia Lockwood MD Nurse Practitioner Active St art: April 22, 2025 Dr. Adarsh Salcido MD Nurse Practitioner Active Start: April 22, 2025 Dr. Hermann Can , DO Nurse Practitioner Active Start: April 22, 2025 Dr. Gage Jenkins MD Nurse Practitioner Active S tart: April 22, 2025 Dr. Celestino Gallagher MD Nurse Practitioner Active Start: April 22, 2025 Dr. Tacos Hollins MD Nurse Practitioner Active Start: April 22, 2025 Dr. John Quinn MD Nurse Practitioner Active Start: April 22, 2025 Dr. Keya Basilio MD Nurse Practitioner Active Start: April 22, 2025 Team Status: Active Member Role/Relationship Status Dates Dr. Kamar Grimes MD Primary care physician Active Start: April 23, 2025 Dr. Deion Levy MD Emergency Department Physician Active Start: April 23, 2025 Dr. Jermaine Simms , DO Admitting physician Activ e Start: April 23, 2025 Dr. Jermaine Simms , Nurse Practitioner Active Start: April 23, 2025 Dr. Garfield Pierson MD Attending physician Active Start: April 23, 2025 Dr. Garfield Pierson MD Nurse Practitioner Active Start: April 23, 2025 Dr. Wally Waddell MD Nurse Practitioner Active Start: April 23, 2025 Dr. Garrick Staples MD Nurse Practitioner Active Sta rt: April 23, 2025 Dr. Murtaza Hunter MD Nurse Practitioner Active Start: April 23, 2025 Dr. Antwan Gardner , DO Nurse Practitioner Active S tart: April 23, 2025 Dr. Abdirashid Smith MD Nurse Practitioner Active Start: April 23, 2025 Dr. Gemini Briceño , Nurse Practitioner Active S tart: April 23, 2025 Dr. Reginaldo Fatima MD Nurse Practitioner Active Start: April 23, 2025 Dr. Rhonda Arceo MD Nurse Practitioner Active Start: April 23, 2025 Dr. Alden Arcos MD Nurse Practitioner Active Start: April 23, 2025 Dr. Rosalind Key MD Nurse Practitioner Active Start: April 23, 2025 Dr. Jose Angel Handley MD Nurse Practitioner Active S tart: April 23, 2025 Dr. Petros Akbar MD Nurse Practitioner Active St art: April 23, 2025 Dr. Julissa Lawrence MD Nurse Practitioner Active Start: April 23, 2025 Dr. Jones Galindo MD Nurse Practitioner Active Start: April 23, 2025 Dr. Bennett Peñaloza MD Nurse Practitioner Active Start: April 23, 2025 Dr. Lamin Campos MD Nurse Practitioner Active S tart: April 23, 2025 Dr. Zakia Love MD Nurse Practitioner Active Start: April 23, 2025 Dr. Sarah Hicks MD Nurse Practitioner Active Start: April 23, 2025 Dr. Al Angel MD Nurse Practitioner Active Start: April 23, 2025 Dr. Shaila Lai MD Nurse Practitioner Active Start: April 23, 2025 Dr. Nayely Givens , DO Nurse Practitioner Active Start: April 23, 2025 Dr. Jamie Sawant MD Nurse Practitioner Active St art: April 23, 2025 Dr. Brenna Young MD Nurse Practitioner Active Start: April 23, 2025 Dr. Ruma Barnes MD Nurse Practitioner Active Start: April 23, 2025 Dr. Ritu Felipe MD Nurse Practitioner Active Start: April 23, 2025 Dr. Mari Fallon , DO Nurse Practitioner Active Start: April 23, 2025 Dr. Brenna Pierce MD Nurse Practitioner Active Start: April 23, 2025 Dr. Luke Rojas , DO Nurse Practitioner Active Start: April 23, 2025 Dr. Travis Daley MD Nurse Practitioner Active Start: April 23, 2025 Dr. Butch Ospina MD Nurse Practitioner Active Start: April 23, 2025 Dr. Elva Mixon MD Nurse Practitioner Active Start: April Dr. John Shepard MD Nurse Practitioner Active Start: April 23, 2025 Dr. Angel Alva , Nurse Practitioner Active Start: April 23, 2025 Dr. Alina Garcia MD Nurse Practitioner Active St art: April 23, 2025 Dr. Roopa Sands MD Nurse Practitioner Active Start: April 23, 2025 Dr. Odilia Lockwood MD Nurse Practitioner Active St art: April 23, 2025 Dr. Adarsh Salcido MD Nurse Practitioner Active Start: April 23, 2025 Dr. Hermann Can , DO Nurse Practitioner Active Start: April 23, 2025 Dr. Gage Jenkins MD Nurse Practitioner Active S tart: April 23, 2025 Dr. Celestino Gallagher MD Nurse Practitioner Active Start: April 23, 2025 Dr. Tacos Hollins MD Nurse Practitioner Active Start: April 23, 2025 Dr. John Quinn MD Nurse Practitioner Active Start: April 23, 2025 Dr. Keya Basilio MD Nurse Practitioner Active Start: April 23, 2025 Team Status: Active Member Role/Relationship Status Dates Dr. Kamar Grimes MD Primary care physician Active Start: April 24, 2025 Dr. Katrina ROBLES MD Attending physician Active Start: April 24, 2025 Team Status: Active Member Role/Relationship Status Dates Dr. Kamar Grimes MD Primary care physician Active Start: April 29, 2025 Dr. Katrina ROBLES MD Attending physician Active Start: April 29, 2025 Team Status: Active Member Role/Relationship Status Dates Dr. Kamar Grimes MD Primary care physician Active Start: May 08, 2025 Dr. Katrina ROBLES MD Attending physician Active Start: May 08, 2025 INFORMATION SOURCE (unrecogn ized section and content) DATE CREATED AUTHOR 09/13/2024 [facility] DATE CREATED AUTHOR AUTHOR'S ORGANIZ ATION 10/04/2024 [facility] DATE CREATED AUTHOR AUTHOR'S ORGANIZ ATION 05/15/2025 [facility] FOR RECORDS PERTAINING TO PATIENTS WHO [...] BE BASED ON THE PRIMARY CLINICAL RECORDS. [employer] provides no warranty or guarantee of the accuracy or completeness of information in this document.
[2025-05-28 08:41] LABS: Hematocrit 37.7 % (37-47); Hemoglobin 11.7 g/dL (12.0-15.0); Mean Corp Hgb Conc 31.0 g/dL (32-36); Mean Corpuscular Volume 97.9 fL (81-99); Mean Platelet Vol. 10.9 fl (6.2-12.0); Platelet Count 174 K/mm3 (150-450); RBC Distribution Width CV 16.8 % (11.6-14.6); RBC Distribution Width SD 60.9 fl (35.1-43.9); Red Blood Count 3.85 M/mm3 (4.2-5.4); White Blood Count 6.2 K/mm3 (4.4-11.0)
[2025-05-28 08:57] LABS: Anion Gap 7 (5-15); BUN 40 mg/dL (4-19); BUN/Creat Ratio 30.5 RATIO (10-20); Calcium,Total 9.2 mg/dL (7.6-11.0); Carbon Dioxide 33.3 mmol/L (21.0-32.0); Chloride 97 mmol/L (98-108); Glucose 140 mg/dL (70-99); Potassium 4.8 mmol/L (3.3-5.1)
== END ==
LOC: OLS.SW 05:00
PROVIDERS: PCP Family Medicine; Visit Provider Internal Medicine
DX: E87.8 Other disorders of electrolyte and fluid balance, not elsewhere classified (principal)
CPT/HCPCS: 36415; 80048; 85027

== ENCOUNTER → 2025-06-05 05:00 | Outpatient (REF) | payer MEDICARE, MEDICAID, SELFPAY ==
--- OUTSIDE RECORDS SUMMARY | 2025-06-05 04:31 | XMS RPT_ITS | CCD ---
Author Organization [facility] Care Team Providers Care Hogshead Head Matcher Name Role Phone Kamar Grimes Primary Care [...] Nadira COTTER, Dr. Lo Nurse Practitioner [phone] Bel COTTER, Dr. Mccauley Nurse Practitioner [phone] Dale COTTER, Dr. Hauser Nurse Practitioner [phone] Jj PIERSON, Dr. Moncada Nurse Practitioner [phone] Sarah COTTER, Dr. Abdirashid Billy Nurse Practitioner [phone] Akua COTTER, Dr. Hair Nurse Practitioner Josselyn COTTER, Dr. Ruano Nurse Practitioner [phone] Yesi COTTER, Dr. Boyer Nurse Practitioner Ender COTTER, Dr. Walter Nurse Practitioner [phone] Raffy COTTER, Dr. Morrell Nurse Practitioner [phone] Andres COTTER, Dr. Kimble Nurse Practitioner [phone] Kurt COTTER, Dr. Smith Nurse Practitioner Jeanne COTTER, Dr. Melendez Nurse Practitioner Unavail velasquez Barnes MD, Dr. Hendrix Nurse Practitioner Thuy COTTER, Dr. Robles Nurse Practitioner Bhavesh COTTER, Dr. Rae Nurse Practitioner Devyn COTTER, Dr. Lopez Nurse Practitioner Artie PIERSON, Dr. Ortiz Nurse Practitioner Radha COTTER, Dr. Fuller Nurse Practitioner Wicho COTTER, Dr. Blas Nurse Practitioner Pamella PIERSON, Dr. Mccrary Nurse Practitioner [phone] Jalen COTTER, Dr. Cuello Nurse Practitioner Donita diya Gallagher MD, Dr. Tirado Nurse Practitioner [phone] Gurvinder COTTER, Dr. Balderrama Nurse Practitioner Kai COTTER, Dr. Lopez Nurse Practitioner Servando [employer] ART[employer] SENIOR SERGEANT-CJodi Nurse Practitioner April [employer] DEF[employer] ARTILL[employer] SENIOR SERGEANT-CSahara Nurse Practitioner Dr. Kamar Grimes MD Primary Care Physician Dr. Kamar Grimes MD Attending Physician Dr. Kamar Grimes MD Referring Provider [phone] Dr. Carlene Salazar MD Attending Physician Dr. Deion Levy MD Emergency Department Physician Jesus COTTER, Dr. Mock Admitting Physician Jesus COTTER, Dr. Mock Nurse Practitioner Lupe COTTER, Dr. Ott Nurse Practitioner [phone] Nadira COTTER, Dr. Lo Nurse Practitioner Bel COTTER, Dr. Mccauley Nurse Practitioner Dale COTTER, Dr. Hauser Nurse Practitioner [phone] Jj PIERSON, Dr. Moncada Nurse Practitioner Sarah COTTER, Dr. Abdirashid Billy Nurse Practitioner Akua COTTER, Dr. Hair Nurse Practitioner Josselyn COTTER, Dr. Ruano Nurse Practitioner [phone] Yesi COTTER, Dr. Boyer Nurse Practitioner Ender COTTER, Dr. Walter Nurse Practitioner [phone] Raffy COTTER, Dr. Morrell Nurse Practitioner [phone] Andres COTTER, Dr. Kimble Nurse Practitioner [phone] Kurt COTTER, Dr. Smith Nurse Practitioner [phone] Jeanne COTTER, Dr. Melendez Nurse Practitioner Unavail [facility] Cameron COTTER, Dr. Hendrix Nurse Practitioner [phone] Thuy COTTER, Dr. Robles Nurse Practitioner Bhavesh COTTER, Dr. Rae Nurse Practitioner Devyn COTTER, Dr. Lopez Nurse Practitioner [phone] Artie PIERSON, Dr. Ortiz Nurse Practitioner Radha COTTER, Dr. Fuller Nurse Practitioner Wicho COTTER, Dr. Blas Nurse Practitioner Pamella PIERSON, Dr. Mccrary Nurse Practitioner [phone] Jalen COTTER, Dr. Cuello Nurse Practitioner Donita diya Gallagher MD, Dr. Tirado Nurse Practitioner [phone] COTTER, Dr. Balderrama Nurse Practitioner Kai COTTER, Dr. Lopez Nurse Practitioner [employer] SENIOR SERGEANT-C, Jodi Nurse Practitioner April [employer] SENIOR SERGEANT-C, Shaara Mosher Nurse Practitioner David COTTER, Dr. Otilia Kirby Nurse Practitioner Robby PIERSON, Dr. Acosta Attending Physician Caio COTTER, Dr. Hughes Attending Physician Elroy RASCON-CTayler Referring Provider Jj PIERSON, Dr. Moncada Attending [...] Practitioner Dangelo COTTER, Dr. Merrill Attending Physician [place] , Dr. Singletary Nurse Practitioner Unavailab tan [...] tan Basilio MD, Dr. Laura Nurse Practitioner [phone] Dangelo COTTER, Dr. Merrill Nurse Practitioner Woo [...] Consulting Unavailable Karla Bustamante Attending Unavailable Grimes, Akmar Primary Care Unavailable Sixto Andrade Consulting Unavailable [...] Hollins Consulting UnavailJohn Kline Consulting Unavailable Servando [employer] SENIOR SERGEANT, Jodi Consulting Unavailable Sahara Chen Consulting Unavailable Otilia Hernandez Consulting Unavailable Jermaine Simms Consulting Unavailable Jermaine Simms Admitting Unavailable Garfield Pierson Attending Unavailable Cornelio, Kamar Primary Care Unavailable Wally Waddell Consulting Unavailable Bel, Garrick Consulting Unavailable Murtaza Hunter Consulting Unavailable Antwan [...] Hicks Consulting Unavailable Aljunluli, Lamia Consulting Unavailable [place], Shaila Consulting Unavailable Tosha, Mustafizur Consulting UnavailJamie Pack Consulting Unavailable Hector, Ceja Consulting Unavailable Ruma Barnes Consulting Unavailable Ritu Felipe Consulting Unavailable Mari Fallon Consulting Unavailable StanBrenna sparks Consulting Unavailable Luke Rojas Consulting Unavailable Travis Daley Consulting Unavailable Butch Ospina Consulting Unavailable Elva Mixon Consulting Unav ailable John Shepard Consulting Unavailable Angel Alva Consulting Unavailable Alnia Garcia Consulting Unavailable Roopa Sands Consulting Unavailable [...] Hicksber Consulting Unavailable Aljunluli, Lamia Consulting Unavailable [place], Shaila Consulting Unavailable Tosha, Mustafizur Consulting UnavailJamie [...] Unavailable Wolfgangam, Otilia Mirta Referring Unavailable Caio, Redfield Consulting Unavailable Katrina Yates Attending Unavailable Grimes, Kamar Primary Care Unavailable Otilia Hernandeza Attending Unavailable Emili Lee Referring Unavailable Jermaine Simms Consulting Unavailable Mao, Fahad Referring Unavailable Grimes, Kamar Primary Care Unavailable Abdirashid Garcia Attending Unavailable Mao, Fahad Admitting Unavailable Luke Montgomery Consulting Unavailable Mao, Fahad Consulting Unavailable CaoiSaurabh burnsril Attending Unavailable Emili Lee Attending Unavailable [...] Physician Dr. Kamar Grimes MD Referring Provider Dr. Carlene Salazar MD Attending Physician [phone] Cam COTTER, Dr. Albarran Emergency Department Physician Jesus COTTER, Dr. Mock Admitting Physician Jesus COTTER, Dr. Mock Nurse Practitioner Lupe COTTER, Dr. Ott Nurse Practitioner Nadira COTTER, Dr. Lo Nurse Practitioner [phone] Bel COTTER, Dr. Mccauley Nurse Practitioner Dale COTTER, Dr. Hauser Nurse Practitioner Jj PIERSON, Dr. Moncada Nurse Practitioner Sarah COTTER, Dr. Abdirashid Billy Nurse Practitioner Akua COTTER, Dr. Hair Nurse Practitioner Josselyn COTTER, Dr. Ruano Nurse Practitioner [phone] Yesi COTTER, Dr. Boyer Nurse Practitioner Ender COTTER, Dr. Walter Nurse Practitioner [phone] Raffy COTTER, Dr. Morrell Nurse Practitioner [phone] Andres COTTER, Dr. Kimble Nurse Practitioner [phone] Kurt COTTER, Dr. Smith Nurse Practitioner [phone] Jeanne COTTER, Dr. Melendez Nurse Practitioner [facility] able Cameron COTTER, Dr. Hendrix Nurse Practitioner [phone] Thuy COTTER, Dr. Robles Nurse Practitioner [phone] Bhavesh COTTER, Dr. Rae Nurse Practitioner Devyn COTTER, Dr. Lopez Nurse Practitioner [phone] Artie PIERSON, Dr. Ortiz Nurse Practitioner Radha COTTER, Dr. Fuller Nurse Practitioner Wicho COTTER, Dr. Blas Nurse Practitioner Pamella PIERSON, Dr. Mccrary Nurse Practitioner [phone] Jalen COTTER, Dr. Cuello Nurse Practitioner Donita diya Gallagher MD, Dr. Tirado Nurse Practitioner Gurvinder COTTER, Dr. Balderrama Nurse Practitioner Kai COTTER, Dr. Lopez Nurse Practitioner [employer] SENIOR SERGEANT-C, Jodi Nurse Practitioner April [employer] SENIOR SERGEANT-C, Sahara Mosher Nurse Practitioner David COTTER, Dr. Otilia Kirby Nurse Practitioner Robby PIERSON, Dr. Acosta Attending Physician Caio COTTER, Dr. Hughes Attending Physician Elroy [employer] SENIOR SERGEANT-C, Tayler Referring Provider [phone] Jesus COTTER, Dr. Mock Referring Provider Jj PIERSON, Dr. Moncada Attending Physician David COTTER, Dr. Otilia Kirby Attending Physician Caio COTTER, Dr. Hughes Nurse Practitioner David COTTER, Dr. Otilia Kirby Referring Provider Robby PIERSON, Dr. Acosta Nurse Practitioner Maureen COTTER, Dr. Mckeon Attending Physician Mendez [...] Mosher Nurse Practitioner Xin Love MD, Dr. oKehler Nurse Practitioner Sigifredo Lai MD, Dr. Linton Nurse Practitioner Elisa Givens DO, Dr. Adler Nurse Practitioner Daniel Sawant MD, Dr. Ayala Nurse Practitioner Concepcion oYung MD, Dr. Ceja Nurse Practitioner Elisa Felipe [...] Tenorio MD, Dr. Laura Nurse Practitioner [phone] Dangelo COTTER, Dr. Merrill Nurse Practitioner [phone] Woo COTTER, Dr. Herndon Attending Physician Unavail velasquez Allergies Allergy Classification Reported Allergen(s) Allergy Type Date of Onset Reaction(s) Facility (19 sources) Penicillins; Translations: [Penicillins] Propensity to adverse reactions 6 Shortness of Breath [facility] Medications Current Medications Medication Drug Class(es) Dates Sig (Normalized) Sig (Original) [id number] 200 actuat albuterol 0.09 mg/actuat metered dose [...] docusate sodium 50 mg / felipe osides, [facility] 8.6 mg oral tablet (20 sources) Start: [...] Start: 09-19-2014 take 2 tablets by mo alh at bedtime Melatonin 5 MG tablet Active [...] 05-08-2025 Anion gap [Moles/Vol] 8 mmol/L 11-14 [facility] BUN/creatinine ratioOrdered By: Katrina Berkowitz on 05-08-2025 Urea nitrogen/Creatinine [Mass ratio] 21.3 mg/mg High 04-21 [facility] Basic Metabolic Profile (BMP )on 05-08-2025 BUN/CRE 21.3 RATIO High 04-21 [facility] Comment on above: Order Comment: 211.1 Performed By: #### L 500.2500, L100.0500 ####[facility] [address] [place], [address] GAP 8 Normal 5-15 [facility] Comment on above: Order Comment: 211.1 Performed By: #### L 500.2500, L100.0500 ####[facility] [address] [place], [address] Potassium [Moles/Vol] 5.1 mmol/L Normal 3.3-5.1 [facility] Comment on above: Order Comment: 211.1 Result Comment: Hemo lysis present, Results??could be affected.?? Performed By: #### L 500.2500, L100.0500 ####[facility] [address] [place], [address] Basic Metabolic Profile (BMP )Ordered By: Katrina Berkowitz on 05-08-2025 Calcium [Mass/Vol] 9.5 mg/dL Normal 7.6-11.0 [facility] Comment on above: Order Comment: 211.1 Performed By: #### L 500.2500, L100.0500 ####[facility] [address] [place], [address] Chloride [Moles/Vol] 98 mmol/L Normal 98-108 [facility] Comment on above: Order Comment: 211.1 Performed By: #### L 500.2500, L100.0500 ####[facility] [address] [place], [address] CO2 [Moles/Vol] 34.0 mmol/L High 21.0-32.0 [facility] Comment on above: Order Comment: 211.1 Performed By: #### L 500.2500, L100.0500 ####[facility] [address] [place], [address] Creatinine [Mass/Vol] 0.94 mg/dL Normal 0.70-1.20 [facility] Comment on above: Order Comment: 211.1 Performed By: #### L 500.2500, L100.0500 ####[facility] [address] [place], [address] GFR/1.73 sq M.predicted among non-blacks MDRD (S/P/Bld) [Vol rate/Area] 63 mL/min/{1.73_m2} Normal >60 [facility] Comment on above: Order Comment: 211.1 Result Comment: mL/m in/1.73m2 CKD-EPI Creatinine Equation (2020) Performed By: #### L 500.2500, L100.0500 ####[facility] [address] [place], [address] Glucose [Mass/Vol] 97 mg/dL Normal 70-99 [facility] Comment on above: Order Comment: 211.1 Performed By: #### L 500.2500, L100.0500 ####[facility] [address] [place], [address] Sodium [Moles/Vol] 140 mmol/L Normal 133-145 [facility] Comment on above: Order Comment: 211.1 Performed By: #### L 500.2500, L100.0500 ####[facility] [address] [place], [address] Urea nitrogen [Mass/Vol] 20 mg/dL High 4-19 [facility] Comment on above: Order Comment: 211.1 Performed By: #### L 500.2500, L100.0500 ####[facility] [address] [place], [address] CBC-Complete Blood Cnt No Di ffOrdered By: Katrina Berkowitz on 05-08-2025 Erythrocyte distribution width (RBC) [Ratio] 16.9 % High 11.6-14.6 [facility] Comment on above: Order Comment: 211.1 Performed By: #### L 500.2500, L100.0500 ####[facility] [address] [place], [address] Hematocrit (Bld) [Volume fraction] 36.6 % Low 37-47 [facility] Comment on above: Order Comment: 211.1 Performed By: #### L 500.2500, L100.0500 ####[facility] [address] [place], [address] Hemoglobin (Bld) [Mass/Vol] 11.3 g/dL Low 12.0-15.0 [facility] Comment on above: Order Comment: 211.1 Performed By: #### L 500.2500, L100.0500 ####[facility] [address] [place], [address] MCH (RBC) [Entitic mass] 29.5 pg Normal 27.0-32.0 [facility] Comment on above: Order Comment: .1 Performed By: #### L 500.2500, L100.0500 ####[facility] [address] [place], [address] MCV (RBC) [Entitic vol] 95.6 fL Normal 81-99 [facility] Comment on above: Order Comment: 211.1 Performed By: #### L 500.2500, L100.0500 ####[facility] [address] [place], [address] Platelets (Bld) [#/Vol] 280 10*3/uL Normal 150-450 [facility] Comment on above: Order Comment: 211.1 Performed By: #### L 500.2500, L100.0500 ####[facility] [address] [place], [address] RBC (Bld) [#/Vol] 3.83 10*6/uL Low 4.2-5.4 [facility] Comment on above: Order Comment: 211.1 Performed By: #### L 500.2500, L100.0500 ####[facility] [address] [place], [address] WBC (Bld) [#/Vol] 4.7 10*3/uL Normal 4.4-11.0 [facility] Comment on above: Order Comment: 211.1 Performed By: #### L 500.2500, L100.0500 ####[facility] [address] [place], [address] CBC-Complete Blood Cnt No Di ffon 05-08-2025 MCHC (RBC) [Mass/Vol] 30.9 g/dL Low 32-36 [facility] Comment on above: Order Comment: 211.1 Performed By: #### L 500.2500, L100.0500 ####[facility] [address] [place], [address] Platelet mean volume (Bld) [Entitic vol] 10.0 fL Normal 6.2-12.0 [facility] Comment on above: Order Comment: 211.1 Performed By: #### L 500.2500, L100.0500 ####[facility] [address] [place], [address] RDW SD 58.7 fl High 35.1-43.9 [facility] Comment on above: Order Comment: 211.1 Performed By: #### L 500.2500, L100.0500 ####[facility] [address] [place], [address] Erythrocyte distribution wid th standard deviationOrdered By: Katrina Berkowitz on 05-08-2025 Erythrocyte distribution width (RBC) [Ratio] 58.7 fl High 35.1-43.9 [facility] Potassium measurement (mass/ volume)Ordered By: Katrina Berkowitz on 05-08-2025 Potassium (Unsp spec) [Mass/Vol] 5.1 mmol/L 3.3-5.1 [facility] Anion gap in Serum or Plasma Ordered By: Katrina Berkowitz on 04-29-2025 Anion gap [Moles/Vol] 6 mmol/L 5-15 [facility] BUN/creatinine ratioOrdered By: Katrina Berkowitz on 04-29-2025 Urea nitrogen/Creatinine [Mass ratio] 21.7 mg/mg High 04-21 [facility] Basic Metabolic Profile (BMP )on 04-29-2025 BUN/CRE 21.7 RATIO High 04-21 [facility] Comment on above: Order Comment: . Performed By: #### L 501.9520, L500.2500, L503.0106, L100.0500, L501.5200, L506.1001 ####[facility] [address] [place], [address] Calcium [Mass/Vol] 9.1 mg/dL Normal 7.6-11.0 [facility] Comment on above: Order Comment: . Performed By: #### L 501.9520, L500.2500, L503.0106, L100.0500, L501.5200, L506.1001 ####[facility] [address] [place], [address] Chloride [Moles/Vol] 94 mmol/L Low 98-108 [facility] Comment on above: Order Comment: . Performed By: #### L 501.9520, L500.2500, L503.0106, L100.0500, L501.5200, L506.1001 ####[facility] [address] [place], [address] CO2 [Moles/Vol] 35.9 mmol/L High 21.0-32.0 [facility] Comment on above: Order Comment: . Performed By: #### L 501.9520, L500.2500, L503.0106, L100.0500, L501.5200, L506.1001 ####[facility] [address] [place], [address] Creatinine [Mass/Vol] 0.99 mg/dL Normal 0.70-1.20 [facility] Comment on above: Order Comment: 211. Performed By: #### L 501.9520, L500.2500, L503.0106, L100.0500, L501.5200, L506.1001 ####[facility] [address] [place], [address] GAP 6 Normal 5-15 [facility] Comment on above: Order Comment: . Performed By: #### L 501.9520, L500.2500, L503.0106, L100.0500, L501.5200, L506.1001 ####[facility] [address] [place], [address] GFR/1.73 sq M.predicted among non-blacks MDRD (S/P/Bld) [Vol rate/Area] 59 mL/min/{1.73_m2} Low >60 [facility] Comment on above: Order Comment: Result Comment: mL/m in/1.73m2 CKD-EPI Creatinine Equation (2020) Performed By: #### L 501.9520, L500.2500, L503.0106, L100.0500, L501.5200, L506.1001 ####[facility] [address] [place], [address] Glucose [Mass/Vol] 93 mg/dL Normal 70-99 [facility] Comment on above: Order Comment: . Performed By: #### L 501.9520, L500.2500, L503.0106, L100.0500, L501.5200, L506.1001 ####[facility] [address] [place], [address] Potassium [Moles/Vol] 4.9 mmol/L Normal 3.3-5.1 [facility] Comment on above: Order Comment: . Performed By: #### L 501.9520, L500.2500, L503.0106, L100.0500, L501.5200, L506.1001 ####[facility] [address] [place], [address] Sodium [Moles/Vol] 136 mmol/L Normal 133-145 [facility] Comment on above: Order Comment: 211.1 Performed By: #### L 501.9520, L500.2500, L503.0106, L100.0500, L501.5200, L506.1001 ####[facility] [address] [place], [place], [address] Urea nitrogen [Mass/Vol] 22 mg/dL High 4-19 [facility] Comment on above: Order Comment: 211.1 Performed By: #### L 501.9520, L500.2500, L503.0106, L100.0500, L501.5200, L506.1001 ####[facility] [address] [place], [place], [address] CBC-Complete Blood Cnt No Di ffon 04-29-2025 Erythrocyte distribution width (RBC) [Ratio] 15.8 % High 11.6-14.6 [facility] Comment on above: Order Comment: 211.1 Performed By: #### L 501.9520, L500.2500, L503.0106, L100.0500, L501.5200, L506.1001 ####[facility] [address] [place], [address] Hematocrit (Bld) [Volume fraction] 34.9 % Low 37-47 [facility] Comment on above: Order Comment: 211.1 Performed By: #### L 501.9520, L500.2500, L503.0106, L100.0500, L501.5200, L506.1001 ####[facility] [address] [place], [address] Hemoglobin (Bld) [Mass/Vol] 10.8 g/dL Low 12.0-15.0 [facility] Comment on above: Order Comment: 211.1 Performed By: #### L 501.9520, L500.2500, L503.0106, L100.0500, L501.5200, L506.1001 ####[facility] [address] [place], [address] MCH (RBC) [Entitic mass] 29.3 pg Normal 27.0-32.0 [facility] Comment on above: Order Comment: .1 Performed By: #### L 501.9520, L500.2500, L503.0106, L100.0500, L501.5200, L506.1001 ####[facility] [address] [place], [address] MCHC (RBC) [Mass/Vol] 30.9 g/dL Low 32-36 [facility] Comment on above: Order Comment: . Performed By: #### L 501.9520, L500.2500, L503.0106, L100.0500, L501.5200, L506.1001 ####[facility] [address] [place], [address] MCV (RBC) [Entitic vol] 94.6 fL Normal 81-99 [facility] Comment on above: Order Comment: . Performed By: #### L 501.9520, L500.2500, L503.0106, L100.0500, L501.5200, L506.1001 ####[facility] [address] [place], [address] Platelet mean volume (Bld) [Entitic vol] 10.4 fL Normal 6.2-12.0 [facility] Comment on above: Order Comment: .1 Performed By: #### L 501.9520, L500.2500, L503.0106, L100.0500, L501.5200, L506.1001 ####[facility] [address] [place], [address] Platelets (Bld) [#/Vol] 144 10*3/uL Low 150-450 [facility] Comment on above: Order Comment: 211.1 Performed By: #### L 501.9520, L500.2500, L503.0106, L100.0500, L501.5200, L506.1001 ####[facility] [address] [place], [address] RBC (Bld) [#/Vol] 3.69 10*6/uL Low 4.2-5.4 [facility] Comment on above: Order Comment: 211.1 Performed By: #### L 501.9520, L500.2500, L503.0106, L100.0500, L501.5200, L506.1001 ####[facility] [address] [place], [address] RDW SD 54.6 fl High 35.1-43.9 [facility] Comment on above: Order Comment: 211.1 Performed By: #### L 501.9520, L500.2500, L503.0106, L100.0500, L501.5200, L506.1001 ####[facility] [address] [place], [address] WBC (Bld) [#/Vol] 5.9 10*3/uL Normal 4.4-11.0 [facility] Comment on above: Order Comment: 211.1 Performed By: #### L 501.9520, L500.2500, L503.0106, L100.0500, L501.5200, L506.1001 ####[facility] [address] [place], [address] Carbon dioxide, total [Moles /volume] in Central venous bloodOrdered By: Katrina Berkowitz on 04-29-2025 CO2 [Moles/Vol] 35.9 mmol/L High 21.0-32.0 [facility] Chloride assayOrdered By: Hermann Berkowitz on 04-29-2025 Chloride [Moles/Vol] 94 mmol/L Low 98-108 [facility] Erythrocyte distribution wid th ratioOrdered By: Katrina Berkowitz on 04-29-2025 Erythrocyte distribution width (RBC) [Ratio] 15.8 % High 11.6-14.6 [facility] Erythrocyte distribution wid th standard deviationOrdered By: Katrina Berkowitz on 04-29-2025 Erythrocyte distribution width (RBC) [Ratio] 54.6 fl High 35.1-43.9 [facility] Glomerular filtration rate ( GFR) estimation/1.73 sq m using serum, plasma, or whole bOrdered By: Katrina Berkowitz on 04-29-2025 GFR/1.73 sq M.predicted among non-blacks MDRD (S/P/Bld) [Vol rate/Area] 59 mL/min/{1.73_m2} Low >60 [facility] Hematocrit Auto (Bld) [Volum e fraction]Ordered By: Katrina Berkowitz on 04-29-2025 Hematocrit (Bld) [Volume fraction] 34.9 % Low 37-47 [facility] Hemoglobin measurementOrdere d By: Katrina Berkowitz on 04-29-2025 Hemoglobin (Bld) [Mass/Vol] 10.8 g/dL Low 12.0-15.0 [facility] MCV (mean corpuscular volume ) determinationOrdered By: Katrina Berkowitz on 04-29-2025 MCV (RBC) [Entitic vol] 94.6 fL 81-99 [facility] Magnesiumon 04-29-2025 Magnesium [Mass/Vol] 1.8 mg/dL Normal 1.5-2.2 [facility] Comment on above: Order Comment: 211.1 Performed By: #### L 501.9520, L500.2500, L503.0106, L100.0500, L501.5200, L506.1001 ####[facility] [address] [place], [address] Magnesium measurement (mass/ volume)Ordered By: Katrina Berkowitz on 04-29-2025 Magnesium (Unsp spec) [Mass/Vol] 1.8 mg/dL 1.5-2.2 [facility] Mean corpuscular hemoglobin (MCH) determinationOrdered By: Katrina Berkowitz on 04-29-2025 MCH (RBC) [Entitic mass] 29.3 pg 27.0-32.0 [facility] Platelet countOrdered By: Hermann Berkowitz on 04-29-2025 Platelets (Bld) [#/Vol] 144 10*3/uL Low 150-450 [facility] Potassium measurement (mass/ volume)Ordered By: Katrina Berkowitz on 04-29-2025 Potassium (Unsp spec) [Mass/Vol] 4.9 mmol/L 3.3-5.1 [facility] RBC Auto (Bld) [#/Vol]Ordere d By: Katrina Berkowitz on 04-29-2025 RBC (Bld) [#/Vol] 3.69 10*6/uL Low 4.2-5.4 [facility] Serum creatinine measurement (mass/volume)Ordered By: Katrina Berkowitz on 04-29-2025 Creatinine [Mass/Vol] 0.99 mg/dL 0.70-1.20 [facility] Serum glucose measurement (m ass/volume)Ordered By: Katrina Berkowitz on 04-29-2025 Glucose [Mass/Vol] 93 mg/dL 70-99 [facility] Serum or plasma calcium lisa urement (mass/volume)Ordered By: Katrina Berkowitz on 04-29-2025 Calcium [Mass/Vol] 9.1 mg/dL 7.6-11.0 [facility] Serum or plasma urea nitroge n measurement (mass/volume)Ordered By: Katrina Berkowitz on 04-29-2025 Urea nitrogen [Mass/Vol] 22 mg/dL High 4-19 [facility] Sodium levelOrdered By: Lilli Berkowitz on 04-29-2025 Sodium [Moles/Vol] 136 mmol/L 133-145 [facility] TSH DL <= 0.005 mIU/L QnOrde red By: Katrina Berkowitz on 04-29-2025 TSH Qn 1.770 uIU/mL 0.300-4.200 [facility] Thyroid Stim Hormone (TSH)on 04-29-2025 TSH 1.770 uIU/mL Normal 0.300-4.200 [facility] Comment on above: Order Comment: 211.1 Performed By: #### L 501.9520, L500.2500, L503.0106, L100.0500, L501.5200, L506.1001 ####[facility] [address] [place], [address] Vitamin B12on 04-29-2025 Cobalamin (Vitamin B12) [Mass/Vol] 394 pg/mL Normal 180-914 [facility] Comment on above: Order Comment: 211.1 Performed By: #### L 501.9520, L500.2500, L503.0106, L100.0500, L501.5200, L506.1001 ####[facility] [address] [place] [place], [address] Vitamin B12 ser/plasOrdered By: Katrina Berkowitz on 04-29-2025 Cobalamin (Vitamin B12) [Mass/Vol] 394 pg/mL 180-914 [facility] Vitamin D,25 Hydroxyon 04-29 Vitamin D 25-OH 36.5 ng/mL Normal 30-100 [facility] Comment on above: Order Comment: 211.1 Result Comment: Lori min D StatusDeficiency: <20 ng/mL (50nmol/L)Insufficiency: 20-30 ng/mL (50-75 nmol/L)Sufficiency: 30-100 ng/mL (75-250 nmol/L)Toxicity: >100 ng/mL (>250 nmol/L) Performed By: #### L 501.9520, L500.2500, L503.0106, L100.0500, L501.5200, L506.1001 ####[facility] [address] [place], [address] White blood cell (WBC) count Ordered By: Katrina Berkowitz on 04-29-2025 WBC (Bld) [#/Vol] 5.9 10*3/uL 4.4-11.0 [facility] Anion gap in Serum or Plasma Ordered By: Katrina Berkowitz on 04-24-2025 Anion gap [Moles/Vol] 7 mmol/L 5-15 [facility] BUN/creatinine ratioOrdered By: Katrina Berkowitz on 04-24-2025 Urea nitrogen/Creatinine [Mass ratio] 21.8 mg/mg High 04-21 [facility] Basic Metabolic Profile (BMP )on 04-24-2025 BUN/CRE 21.8 RATIO High 04-21 [facility] Comment on above: Order Comment: 211.1 Performed By: #### L 501.5200, L500.2500, L100.0500 ####[facility] [address] [place], [address] Calcium [Mass/Vol] 9.0 mg/dL Normal 7.6-11.0 [facility] Comment on above: Order Comment: 211.1 Performed By: #### L 501.5200, L500.2500, L100.0500 ####[facility] [address] [place], [address] Chloride [Moles/Vol] 91 mmol/L Low 98-108 [facility] Comment on above: Order Comment: 211.1 Performed By: #### L 501.5200, L500.2500, L100.0500 ####[facility] [address] [place], [address] CO2 [Moles/Vol] 35.4 mmol/L High 21.0-32.0 [facility] Comment on above: Order Comment: 211.1 Performed By: #### L 501.5200, L500.2500, L100.0500 ####[facility] [address] [place], [address] Creatinine [Mass/Vol] 1.41 mg/dL High 0.70-1.20 [facility] Comment on above: Order Comment: 211.1 Performed By: #### L 501.5200, L500.2500, L100.0500 ####[facility] [address] [place], [address] GAP 7 Normal 5-15 [facility] Comment on above: Order Comment: 211.1 Performed By: #### L 501.5200, L500.2500, L100.0500 ####[facility] [address] [place], [address] GFR/1.73 sq M.predicted among non-blacks MDRD (S/P/Bld) [Vol rate/Area] 39 mL/min/{1.73_m2} Low >60 [facility] Comment on above: Order Comment: 211.1 Result Comment: mL/m in/1.73m2 CKD-EPI Creatinine Equation (2020) Performed By: #### L 501.5200, L500.2500, L100.0500 ####[facility] [address] [place], [address] Glucose [Mass/Vol] 100 mg/dL High 70-99 [facility] Comment on above: Order Comment: 211.1 Performed By: #### L 501.5200, L500.2500, L100.0500 ####[facility] [address] [place], [address] Potassium [Moles/Vol] 4.4 mmol/L Normal 3.3-5.1 [facility] Comment on above: Order Comment: 211.1 Performed By: #### L 501.5200, L500.2500, L100.0500 ####[facility] [address] [place], [address] Sodium [Moles/Vol] 134 mmol/L Normal 133-145 [facility] Comment on above: Order Comment: 211.1 Performed By: #### L 501.5200, L500.2500, L100.0500 ####[facility] [address] [place], [address] Urea nitrogen [Mass/Vol] 31 mg/dL High 4-19 [facility] Comment on above: Order Comment: 211.1 Performed By: #### L 501.5200, L500.2500, L100.0500 ####[facility] [address] [place], [address] CBC-Complete Blood Cnt No Di ffon 04-24-2025 Erythrocyte distribution width (RBC) [Ratio] 15.3 % High 11.6-14.6 [facility] Comment on above: Order Comment: 211.1 Performed By: #### L 501.5200, L500.2500, L100.0500 ####[facility] [address] [place], [address] Hematocrit (Bld) [Volume fraction] 32.9 % Low 37-47 [facility] Comment on above: Order Comment: 211.1 Performed By: #### L 501.5200, L500.2500, L100.0500 ####[facility] [address] [place], [address] Hemoglobin (Bld) [Mass/Vol] 10.7 g/dL Low 12.0-15.0 [facility] Comment on above: Order Comment: 211.1 Performed By: #### L 501.5200, L500.2500, L100.0500 ####[facility] [address] [place], [address] MCH (RBC) [Entitic mass] 29.8 pg Normal 27.0-32.0 [facility] Comment on above: Order Comment: 211.1 Performed By: #### L 501.5200, L500.2500, L100.0500 ####[facility] [address] [place], [address] MCHC (RBC) [Mass/Vol] 32.5 g/dL Normal 32-36 [facility] Comment on above: Order Comment: 211.1 Performed By: #### L 501.5200, L500.2500, L100.0500 ####[facility] [address] [place], [address] MCV (RBC) [Entitic vol] 91.6 fL Normal 81-99 [facility] Comment on above: Order Comment: 211.1 Performed By: #### L 501.5200, L500.2500, L100.0500 ####[facility] [address] [place], [address] Platelet mean volume (Bld) [Entitic vol] 10.8 fL Normal 6.2-12.0 [facility] Comment on above: Order Comment: 211.1 Performed By: #### L 501.5200, L500.2500, L100.0500 ####[facility] [address] [place], [address] Platelets (Bld) [#/Vol] 124 10*3/uL Low 150-450 [facility] Comment on above: Order Comment: 211.1 Performed By: #### L 501.5200, L500.2500, L100.0500 ####[facility] [address] [place], [address] RBC (Bld) [#/Vol] 3.59 10*6/uL Low 4.2-5.4 [facility] Comment on above: Order Comment: 211.1 Performed By: #### L 501.5200, L500.2500, L100.0500 ####[facility] [address] [place], [address] RDW SD 49.9 fl High 35.1-43.9 [facility] Comment on above: Order Comment: 211.1 Performed By: #### L 501.5200, L500.2500, L100.0500 ####[facility] [address] [place], [address] WBC (Bld) [#/Vol] 7.0 10*3/uL Normal 4.4-11.0 [facility] Comment on above: Order Comment: 211.1 Performed By: #### L 501.5200, L500.2500, L100.0500 ####[facility] [address] [place], [place], [address] Carbon dioxide, total [Moles /volume] in Central venous bloodOrdered By: Katrina Berkowitz on 04-24-2025 CO2 [Moles/Vol] 35.4 mmol/L High 21.0-32.0 [facility] Chloride assayOrdered By: Hermann Berkowitz on 04-24-2025 Chloride [Moles/Vol] 91 mmol/L Low 98-108 [facility] Culture, Blood (WB)on 2024 CUB Blood cultures x2, f rom two different sites No growth in 5 days. Normal [facility] Comment on above: Performed By: #### L 100.0100, M200.1000, L503.6005, L501.3620 ####[facility] [address] [place], [place], [address] Erythrocyte distribution wid th ratioOrdered By: Katrina Berkowitz on 04-24-2025 Erythrocyte distribution width (RBC) [Ratio] 15.3 % High 11.6-14.6 [facility] Erythrocyte distribution wid th standard deviationOrdered By: Katrina Berkowitz on 04-24-2025 Erythrocyte distribution width (RBC) [Ratio] 49.9 fl High 35.1-43.9 [facility] Glomerular filtration rate ( GFR) estimation/1.73 sq m using serum, plasma, or whole bOrdered By: Katrina Berkowitz on 04-24-2025 GFR/1.73 sq M.predicted among non-blacks MDRD (S/P/Bld) [Vol rate/Area] 39 mL/min/{1.73_m2} Low >60 [facility] Hematocrit Auto (Bld) [Volum e fraction]Ordered By: Katrina Berkowitz on 04-24-2025 Hematocrit (Bld) [Volume fraction] 32.9 % Low 37-47 [facility] Hemoglobin measurementOrdere d By: Katrina Berkowitz on 04-24-2025 Hemoglobin (Bld) [Mass/Vol] 10.7 g/dL Low 12.0-15.0 [facility] MCV (mean corpuscular volume ) determinationOrdered By: Katrina Berkowitz on 04-24-2025 MCV (RBC) [Entitic vol] 91.6 fL 81-99 [facility] Magnesiumon 04-24-2025 Magnesium [Mass/Vol] 1.3 mg/dL Low 1.5-2.2 [facility] Comment on above: Order Comment: 211.1 Performed By: #### L 501.5200, L500.2500, L100.0500 ####[facility] [address] [place], [place], [address] Magnesium measurement (mass/ volume)Ordered By: Katrina Berkowitz on 04-24-2025 Magnesium (Unsp spec) [Mass/Vol] 1.3 mg/dL Low 1.5-2.2 [facility] Mean corpuscular hemoglobin (MCH) determinationOrdered By: Katrina Berkowitz on 04-24-2025 MCH (RBC) [Entitic mass] 29.8 pg 27.0-32.0 [facility] Platelet countOrdered By: Hermann Berkowitz on 04-24-2025 Platelets (Bld) [#/Vol] 124 10*3/uL Low 150-450 [facility] Potassium measurement (mass/ volume)Ordered By: Katrina Berkowitz on 04-24-2025 Potassium (Unsp spec) [Mass/Vol] 4.4 mmol/L 3.3-5.1 [facility] RBC Auto (Bld) [#/Vol]Ordere d By: Katrina Berkowitz on 04-24-2025 RBC (Bld) [#/Vol] 3.59 10*6/uL Low 4.2-5.4 [facility] Serum creatinine measurement (mass/volume)Ordered By: Katrina Berkowitz on 04-24-2025 Creatinine [Mass/Vol] 1.41 mg/dL High 0.70-1.20 [facility] Serum glucose measurement (m ass/volume)Ordered By: Katrina Berkowitz on 04-24-2025 Glucose [Mass/Vol] 100 mg/dL High 70-99 [facility] Serum or plasma calcium lisa urement (mass/volume)Ordered By: Katrina Berkowitz on 04-24-2025 Calcium [Mass/Vol] 9.0 mg/dL 7.6-11.0 [facility] Serum or plasma urea nitroge n measurement (mass/volume)Ordered By: Katrina Berkowitz on 04-24-2025 Urea nitrogen [Mass/Vol] 31 mg/dL High 4-19 [facility] Sodium levelOrdered By: Lilli Berkowitz on 04-24-2025 Sodium [Moles/Vol] 134 mmol/L 133-145 [facility] White blood cell (WBC) count Ordered By: Katrina Berkowitz on 04-24-2025 WBC (Bld) [#/Vol] 7.0 10*3/uL 4.4-11.0 [facility] Absolute lymphocyte countOrd ered By: Garfield Pierson on 04-22-2025 Lymphocytes Auto (Unsp spec) [#/Vol] 1.13 10*3/uL 0.83-4.51 [facility] Anion gap in Serum or Plasma Ordered By: Garfield Pierson on 04-22-2025 Anion gap [Moles/Vol] 6 mmol/L 5-15 [facility] Automated lymphocyte count a s percentage of total leukocytesOrdered By: Garfield Pierson on 04-22-2025 Lymphocytes/100 WBC Auto (Unsp spec) 18.2 % Low 19-41 [facility] BUN/creatinine ratioOrdered By: Garfield Pierson on 04-22-2025 Urea nitrogen/Creatinine [Mass ratio] 25.4 mg/mg High 04-21 [facility] Basic Metabolic Profile (BMP )on 04-22-2025 BUN/CRE 25.4 RATIO High 04-21 [facility] Comment on above: Performed By: #### L 100.0100, L500.2500 ####[facility] [address] [place], [address] Calcium [Mass/Vol] 9.7 mg/dL Normal 7.6-11.0 [facility] Comment on above: Performed By: #### L 100.0100, L500.2500 ####[facility] [address] [place], [address] Chloride [Moles/Vol] 88 mmol/L Low 98-108 [facility] Comment on above: Performed By: #### L 100.0100, L500.2500 ####[facility] [address] [place], [address] CO2 [Moles/Vol] 40.0 mmol/L High 21.0-32.0 [facility] Comment on above: Performed By: #### L 100.0100, L500.2500 ####[facility] [address] [place], [address] Creatinine [Mass/Vol] 1.12 mg/dL Normal 0.70-1.20 [facility] Comment on above: Performed By: #### L 100.0100, L500.2500 ####[facility] [address] [place], [address] ECRCL 54.29 ml/min Normal 50-250 [facility] Comment on above: Performed By: #### L 100.0100, L500.2500 ####[facility] [address] [place], [address] GAP 6 Normal 5-15 [facility] Comment on above: Performed By: #### L 100.0100, L500.2500 ####[facility] [address] [place], [address] GFR/1.73 sq M.predicted among non-blacks MDRD (S/P/Bld) [Vol rate/Area] 51 mL/min/{1.73_m2} Low >60 [facility] Comment on above: Result Comment: mL/m in/1.73m2 CKD-EPI Creatinine Equation (2020) Performed By: #### L 100.0100, L500.2500 ####[facility] [address] [place], [address] Glucose [Mass/Vol] 102 mg/dL High 70-99 [facility] Comment on above: Performed By: #### L 100.0100, L500.2500 ####[facility] [address] [place], [address] Potassium [Moles/Vol] 4.7 mmol/L Normal 3.3-5.1 [facility] Comment on above: Performed By: #### L 100.0100, L500.2500 ####[facility] [address] [place], [address] Sodium [Moles/Vol] 134 mmol/L Normal 133-145 [facility] Comment on above: Performed By: #### L 100.0100, L500.2500 ####[facility] [address] [place], [address] Urea nitrogen [Mass/Vol] 28 mg/dL High 4-19 [facility] Comment on above: Performed By: #### L 100.0100, L500.2500 ####[facility] [address] [place], [address] Basophil percentageOrdered B y: Garfield Pierson on 04-22-2025 Basophils/100 WBC (Bld) 0.8 % 0-1 [facility] CBC W/Diff, Automatedon 10- Absolute Lymph 1.13 X10 3/uL Normal 0.83-4.51 [facility] Comment on above: Performed By: #### L 100.0100, L500.2500 ####[facility] [address] [place], [address] Absolute Neut 4.2 X10 3/uL Normal 2.0-7.7 [facility] Comment on above: Performed By: #### L 100.0100, L500.2500 ####[facility] [address] [place], [address] Basophils/100 WBC (Bld) 0.8 % Normal 0-1 [facility] Comment on above: Performed By: #### L 100.0100, L500.2500 ####[facility] [address] [place], [address] Eosinophils/100 WBC (Bld) 3.7 % Normal 0-5 [facility] Comment on above: Performed By: #### L 100.0100, L500.2500 ####[facility] [address] [place], [address] Erythrocyte distribution width (RBC) [Ratio] 14.6 % Normal 11.6-14.6 [facility] Comment on above: Performed By: #### L 100.0100, L500.2500 ####[facility] [address] [place], [address] Hematocrit (Bld) [Volume fraction] 38.2 % Normal 37-47 [facility] Comment on above: Performed By: #### L 100.0100, L500.2500 ####[facility] [address] [place], [address] Hemoglobin (Bld) [Mass/Vol] 12.3 g/dL Normal 12.0-15.0 [facility] Comment on above: Performed By: #### L 100.0100, L500.2500 ####[facility] [address] [place], [address] IG% 1.800 High 0.0-0.9 [facility] Comment on above: Result Comment: IG% - Immature Granulocytes (promyelocytes, myelocytes andmetamyelocytes) > 1% indicates that a LEFT SHIFT is Present. Performed By: #### L 100.0100, L500.2500 ####[facility] [address] [place], [address] Lymphocytes/100 WBC (Bld) 18.2 % Low 19-41 [facility] Comment on above: Performed By: #### L 100.0100, L500.2500 ####[facility] [address] [place], [address] MCH (RBC) [Entitic mass] 29.2 pg Normal 27.0-32.0 [facility] Comment on above: Performed By: #### L 100.0100, L500.2500 ####[facility] [address] [place], [address] MCHC (RBC) [Mass/Vol] 32.2 g/dL Normal 32-36 [facility] Comment on above: Performed By: #### L 100.0100, L500.2500 ####[facility] [address] [place], [address] MCV (RBC) [Entitic vol] 90.7 fL Normal 81-99 [facility] Comment on above: Performed By: #### L 100.0100, L500.2500 ####[facility] [address] [place], [address] Monocytes/100 WBC (Bld) 8.7 % Normal 0-10 [facility] Comment on above: Performed By: #### L 100.0100, L500.2500 ####[facility] [address] [place], [address] Neutrophils/100 WBC (Bld) 66.8 % Normal 47-70 [facility] Comment on above: Performed By: #### L 100.0100, L500.2500 ####[facility] [address] [place], [address] Nucleated RBC (Bld) [#/Vol] 0 10*3/uL Normal 0-5 [facility] Comment on above: Performed By: #### L 100.0100, L500.2500 ####[facility] [address] [place], [address] Platelet mean volume (Bld) [Entitic vol] 10.6 fL Normal 6.2-12.0 [facility] Comment on above: Performed By: #### L 100.0100, L500.2500 ####[facility] [address] [place], [address] Platelets (Bld) [#/Vol] 115 10*3/uL Low 150-450 [facility] Comment on above: Performed By: #### L 100.0100, L500.2500 ####[facility] [address] [place], [address] RBC (Bld) [#/Vol] 4.21 10*6/uL Normal 4.2-5.4 [facility] Comment on above: Performed By: #### L 100.0100, L500.2500 ####[facility] [address] [place], [address] RDW SD 47.8 fl High 35.1-43.9 [facility] Comment on above: Performed By: #### L 100.0100, L500.2500 ####[facility] [address] [place], [address] WBC (Bld) [#/Vol] 6.2 10*3/uL Normal 4.4-11.0 [facility] Comment on above: Performed By: #### L 100.0100, L500.2500 ####[facility] [address] [place], [address] Carbon dioxide, total [Moles /volume] in Central venous bloodOrdered By: Garfield Pierson on 04-22-2025 CO2 [Moles/Vol] 40.0 mmol/L High 21.0-32.0 [facility] Chloride assayOrdered By: Nina Pierson on 04-22-2025 Chloride [Moles/Vol] 88 mmol/L Low 98-108 [facility] Eosinophil percentageOrdered By: Garfield Pierson on 04-22-2025 Eosinophils/100 WBC (Bld) 3.7 % 0-5 [facility] Erythrocyte distribution wid th ratioOrdered By: Garfield Pierson on 04-22-2025 Erythrocyte distribution width (RBC) [Ratio] 14.6 % 11.6-14.6 [facility] Erythrocyte distribution wid th standard deviationOrdered By: Garfield Pierson on 04-22-2025 Erythrocyte distribution width (RBC) [Ratio] 47.8 fl High 35.1-43.9 [facility] Glomerular filtration rate ( GFR) estimation/1.73 sq m using serum, plasma, or whole bOrdered By: Garfield Pierson on 04-22-2025 GFR/1.73 sq M.predicted among non-blacks MDRD (S/P/Bld) [Vol rate/Area] 51 mL/min/{1.73_m2} Low >60 [facility] Hematocrit Auto (Bld) [Volum e fraction]Ordered By: Garfield Pierson on 04-22-2025 Hematocrit (Bld) [Volume fraction] 38.2 % 37-47 [facility] Hemoglobin measurementOrdere d By: Garfield Pierson on 04-22-2025 Hemoglobin (Bld) [Mass/Vol] 12.3 g/dL 12.0-15.0 [facility] Immature granulocytes/100 WB C Auto (Bld)Ordered By: Garfield Pierson on 04-22-2025 Immature granulocytes/100 WBC (Bld) 1.800 % High 0.0-0.9 [facility] MCV (mean corpuscular volume ) determinationOrdered By: Garfield Pierson on 04-22-2025 MCV (RBC) [Entitic vol] 90.7 fL 81-99 [facility] Mean corpuscular hemoglobin (MCH) determinationOrdered By: Garfield Pierson on 04-22-2025 MCH (RBC) [Entitic mass] 29.2 pg 27.0-32.0 [facility] Monocyte percentageOrdered B y: Garfield Pierson on 04-22-2025 Monocytes/100 WBC (Bld) 8.7 % 0-10 [facility] Neutrophil percentageOrdered By: Garfield Pierson on 04-22-2025 Neutrophils/100 WBC (Bld) 66.8 % 47-70 [facility] Platelet countOrdered By: Nina Pierson on 04-22-2025 Platelets (Bld) [#/Vol] 115 10*3/uL Low 150-450 [facility] Potassium measurement (mass/ volume)Ordered By: Garfield Pierson on 04-22-2025 Potassium (Unsp spec) [Mass/Vol] 4.7 mmol/L 3.3-5.1 [facility] RBC Auto (Bld) [#/Vol]Ordere d By: Garfield Pierson on 04-22-2025 RBC (Bld) [#/Vol] 4.21 10*6/uL 4.2-5.4 [facility] Serum creatinine measurement (mass/volume)Ordered By: Garfield Pierson on 04-22-2025 Creatinine [Mass/Vol] 1.12 mg/dL 0.70-1.20 [facility] Serum glucose measurement (m ass/volume)Ordered By: Garfield Pierson on 04-22-2025 Glucose [Mass/Vol] 102 mg/dL High 70-99 [facility] Serum or plasma calcium lisa urement (mass/volume)Ordered By: Garfield Pierson on 04-22-2025 Calcium [Mass/Vol] 9.7 mg/dL 7.6-11.0 [facility] Serum or plasma urea nitroge n measurement (mass/volume)Ordered By: Garfield Pierson on 04-22-2025 Urea nitrogen [Mass/Vol] 28 mg/dL High 4-19 [facility] Sodium levelOrdered By: Asha Pierson on 04-22-2025 Sodium [Moles/Vol] 134 mmol/L 133-145 [facility] Urine Cultureon 04-22-2025 [facility] Mixed Gram Pos Gram Neg Org [place] Count 11,000-25,000 [facility] Mixed contaminants. Submit a new specimen if indicated. Normal [facility] Comment on above: Performed By: #### M 300.4500, M100.2200, M8200.1000, M100.678, L8200.1000, M300.4600, L400.0001 ####[facility] [address] [place], [address] White blood cell (WBC) count Ordered By: Garfield Pierson on 04-22-2025 WBC (Bld) [#/Vol] 6.2 10*3/uL 4.4-11.0 [facility] Basic Metabolic Profile (BMP )on 04-21-2025 BUN/CRE 27.3 RATIO High 04-21 [facility] Comment on above: Performed By: #### L 100.0100, L500.2500 ####[facility] [address] [place], [address] Calcium [Mass/Vol] 9.0 mg/dL Normal 7.6-11.0 [facility] Comment on above: Performed By: #### L 100.0100, L500.2500 ####[facility] [address] [place], [address] Chloride [Moles/Vol] 85 mmol/L Low 98-108 [facility] Comment on above: Performed By: #### L 100.0100, L500.2500 ####[facility] [address] [place], [address] CO2 [Moles/Vol] 37.5 mmol/L High 21.0-32.0 [facility] Comment on above: Performed By: #### L 100.0100, L500.2500 ####[facility] [address] [place], [address] Creatinine [Mass/Vol] 1.20 mg/dL Normal 0.70-1.20 [facility] Comment on above: Performed By: #### L 100.0100, L500.2500 ####[facility] [address] [place], [address] ECRCL 50.67 ml/min Normal 50-250 [facility] Comment on above: Performed By: #### L 100.0100, L500.2500 ####[facility] [address] [place], [address] GAP 5 Normal 5-15 [facility] Comment on above: Performed By: #### L 100.0100, L500.2500 ####[facility] [address] [place], [address] GFR/1.73 sq M.predicted among non-blacks MDRD (S/P/Bld) [Vol rate/Area] 47 mL/min/{1.73_m2} Low >60 [facility] Comment on above: Result Comment: mL/m in/1.73m2 CKD-EPI Creatinine Equation (2020) Performed By: #### L 100.0100, L500.2500 ####[facility] [address] [place], [address] Glucose [Mass/Vol] 130 mg/dL High 70-99 [facility] Comment on above: Performed By: #### L 100.0100, L500.2500 ####[facility] [address] [place], [address] Potassium [Moles/Vol] 4.2 mmol/L Normal 3.3-5.1 [facility] Comment on above: Performed By: #### L 100.0100, L500.2500 ####[facility] [address] [place], [address] Sodium [Moles/Vol] 127 mmol/L Low 133-145 [facility] Comment on above: Performed By: #### L 100.0100, L500.2500 ####[facility] [address] [place], [address] Urea nitrogen [Mass/Vol] 33 mg/dL High 4-19 [facility] Comment on above: Performed By: #### L 100.0100, L500.2500 ####[facility] [address] [place], [address] CBC W/Diff, Automatedon 10-2 0-2025 Absolute Lymph 1.01 X10 3/uL Normal 0.83-4.51 [facility] Comment on above: Performed By: #### L 100.0100, L500.2500 ####[facility] [address] [place], [address] Absolute Neut 5.7 X10 3/uL Normal 2.0-7.7 [facility] Comment on above: Performed By: #### L 100.0100, L500.2500 ####[facility] [address] [place], [address] Basophils/100 WBC (Bld) 0.5 % Normal 0-1 [facility] Comment on above: Performed By: #### L 100.0100, L500.2500 ####[facility] [address] [place], [address] Eosinophils/100 WBC (Bld) 2.6 % Normal 0-5 [facility] Comment on above: Performed By: #### L 100.0100, L500.2500 ####[facility] [address] [place], [address] Erythrocyte distribution width (RBC) [Ratio] 14.6 % Normal 11.6-14.6 [facility] Comment on above: Performed By: #### L 100.0100, L500.2500 ####[facility] [address] [place], [address] Hematocrit (Bld) [Volume fraction] 35.2 % Low 37-47 [facility] Comment on above: Performed By: #### L 100.0100, L500.2500 ####[facility] [address] [place], [address] Hemoglobin (Bld) [Mass/Vol] 11.5 g/dL Low 12.0-15.0 [facility] Comment on above: Performed By: #### L 100.0100, L500.2500 ####[facility] [address] [place], [address] IG% 1.100 High 0.0-0.9 [facility] Comment on above: Result Comment: IG% - Immature Granulocytes (promyelocytes, myelocytes andmetamyelocytes) > 1% indicates that a LEFT SHIFT is Present. Performed By: #### L 100.0100, L500.2500 ####[facility] [address] [place], [address] Lymphocytes/100 WBC (Bld) 13.3 % Low 19-41 [facility] Comment on above: Performed By: #### L 100.0100, L500.2500 ####[facility] [address] [place], [address] MCH (RBC) [Entitic mass] 29.4 pg Normal 27.0-32.0 [facility] Comment on above: Performed By: #### L 100.0100, L500.2500 ####[facility] [address] [place], [address] MCHC (RBC) [Mass/Vol] 32.7 g/dL Normal 32-36 [facility] Comment on above: Performed By: #### L 100.0100, L500.2500 ####[facility] [address] [place], [address] MCV (RBC) [Entitic vol] 90.0 fL Normal 81-99 [facility] Comment on above: Performed By: #### L 100.0100, L500.2500 ####[facility] [address] [place], [address] Monocytes/100 WBC (Bld) 8.1 % Normal 0-10 [facility] Comment on above: Performed By: #### L 100.0100, L500.2500 ####[facility] [address] [place], [address] Neutrophils/100 WBC (Bld) 74.4 % High 47-70 [facility] Comment on above: Performed By: #### L 100.0100, L500.2500 ####[facility] [address] [place], [address] Nucleated RBC (Bld) [#/Vol] 0 10*3/uL Normal 0-5 [facility] Comment on above: Performed By: #### L 100.0100, L500.2500 ####[facility] [address] [place], [address] Platelet mean volume (Bld) [Entitic vol] 10.7 fL Normal 6.2-12.0 [facility] Comment on above: Performed By: #### L 100.0100, L500.2500 ####[facility] [address] [place], [address] Platelets (Bld) [#/Vol] 113 10*3/uL Low 150-450 [facility] Comment on above: Performed By: #### L 100.0100, L500.2500 ####[facility] [address] [place], [address] RBC (Bld) [#/Vol] 3.91 10*6/uL Low 4.2-5.4 [facility] Comment on above: Performed By: #### L 100.0100, L500.2500 ####[facility] [address] [place], [address] RDW SD 46.6 fl High 35.1-43.9 [facility] Comment on above: Performed By: #### L 100.0100, L500.2500 ####[facility] [address] [place], [address] WBC (Bld) [#/Vol] 7.6 10*3/uL Normal 4.4-11.0 [facility] Comment on above: Performed By: #### L 100.0100, L500.2500 ####[facility] [address] [place], [address] Consultation - Nephrologyon 04-21-2025 Consultation - Nephrology Normal [facility] Venous Duplex US - Chase Extre mon 04-21-2025 Venous Duplex US - Chase Extrem Normal [facility] Venous duplex ultrasound rep ortOrdered By: Dm Fong on 04-21-2025 US Vein [facility] Other Phone: US Vein [facility] Other Phone: Amphetamine detection with 1 000 ng/mL as cutoffOrdered By: Garfield Pierson on 04-20-2025 Amphetamines Screen method >1000 ng/mL Ql (U) Negative < 200 ng/mL [facility] Basic Metabolic Profile (BMP )on 04-20-2025 BUN/CRE 29.4 RATIO High 04-21 [facility] Comment on above: Performed By: #### L 100.0100, L500.2500 ####[facility] [address] [place], [address] Calcium [Mass/Vol] 9.0 mg/dL Normal 7.6-11.0 [facility] Comment on above: Performed By: #### L 100.0100, L500.2500 ####[facility] [address] [place], [address] Chloride [Moles/Vol] 83 mmol/L Low 98-108 [facility] Comment on above: Performed By: #### L 100.0100, L500.2500 ####[facility] [address] [place], [address] CO2 [Moles/Vol] 36.7 mmol/L High 21.0-32.0 [facility] Comment on above: Performed By: #### L 100.0100, L500.2500 ####[facility] [address] [place], [address] Creatinine [Mass/Vol] 1.31 mg/dL High 0.70-1.20 [facility] Comment on above: Performed By: #### L 100.0100, L500.2500 ####[facility] [address] [place], [address] ECRCL 46.46 ml/min Low 50-250 [facility] Comment on above: Performed By: #### L 100.0100, L500.2500 ####[facility] [address] [place], [address] GAP 5 Normal 5-15 [facility] Comment on above: Performed By: #### L 100.0100, L500.2500 ####[facility] [address] [place], [address] GFR/1.73 sq M.predicted among non-blacks MDRD (S/P/Bld) [Vol rate/Area] 42 mL/min/{1.73_m2} Low >60 [facility] Comment on above: Result Comment: mL/m in/1.73m2 CKD-EPI Creatinine Equation (2020) Performed By: #### L 100.0100, L500.2500 ####[facility] [address] [place], [address] Glucose [Mass/Vol] 113 mg/dL High 70-99 [facility] Comment on above: Performed By: #### L 100.0100, L500.2500 ####[facility] [address] [place], [address] Potassium [Moles/Vol] 4.0 mmol/L Normal 3.3-5.1 [facility] Comment on above: Performed By: #### L 100.0100, L500.2500 ####[facility] [address] [place], [address] Sodium [Moles/Vol] 125 mmol/L Low 133-145 [facility] Comment on above: Performed By: #### L 100.0100, L500.2500 ####[facility] [address] [place], [address] Urea nitrogen [Mass/Vol] 39 mg/dL High - [facility] Comment on above: Performed By: #### L 100.0100, L500.2500 ####[facility] [address] [place], [address] Bilirubin Test strip Ql (U)O rdered By: Garfield Pierson on 04-20-2025 Bilirubin Ql (U) Negative Negative [facility] CBC W/Diff, Automatedon 04-02 Absolute Lymph 1.11 X10 3/uL Normal 0.83-4.51 [facility] Comment on above: Performed By: #### L 100.0100, L500.2500 ####[facility] [address] [place], [address] Absolute Neut 5.5 X10 3/uL Normal 2.0-7.7 [facility] Comment on above: Performed By: #### L 100.0100, L500.2500 ####[facility] [address] [place], [address] Basophils/100 WBC (Bld) 0.4 % Normal 0-1 [facility] Comment on above: Performed By: #### L 100.0100, L500.2500 ####[facility] [address] [place], [address] Eosinophils/100 WBC (Bld) 2.9 % Normal 0-5 [facility] Comment on above: Performed By: #### L 100.0100, L500.2500 ####[facility] [address] [place], [address] Erythrocyte distribution width (RBC) [Ratio] 14.5 % Normal 11.6-14.6 [facility] Comment on above: Performed By: #### L 100.0100, L500.2500 ####[facility] [address] [place], [address] Hematocrit (Bld) [Volume fraction] 34.4 % Low 37-47 [facility] Comment on above: Performed By: #### L 100.0100, L500.2500 ####[facility] [address] [place], [address] Hemoglobin (Bld) [Mass/Vol] 11.1 g/dL Low 12.0-15.0 [facility] Comment on above: Performed By: #### L 100.0100, L500.2500 ####[facility] [address] [place], [address] IG% 0.900 Normal 0.0-0.9 [facility] Comment on above: Result Comment: IG% - Immature Granulocytes (promyelocytes, myelocytes andmetamyelocytes) > 1% indicates that a LEFT SHIFT is Present. Performed By: #### L 100.0100, L500.2500 ####[facility] [address] [place], [address] Lymphocytes/100 WBC (Bld) 14.8 % Low 19-41 [facility] Comment on above: Performed By: #### L 100.0100, L500.2500 ####[facility] [address] [place], [address] MCH (RBC) [Entitic mass] 29.1 pg Normal 27.0-32.0 [facility] Comment on above: Performed By: #### L 100.0100, L500.2500 ####[facility] [address] [place], [address] MCHC (RBC) [Mass/Vol] 32.3 g/dL Normal 32-36 [facility] Comment on above: Performed By: #### L 100.0100, L500.2500 ####[facility] [address] [place], [address] MCV (RBC) [Entitic vol] 90.3 fL Normal 81-99 [facility] Comment on above: Performed By: #### L 100.0100, L500.2500 ####[facility] [address] [place], [address] Monocytes/100 WBC (Bld) 7.7 % Normal 0-10 [facility] Comment on above: Performed By: #### L 100.0100, L500.2500 ####[facility] [address] [place], [address] Neutrophils/100 WBC (Bld) 73.3 % High 47-70 [facility] Comment on above: Performed By: #### L 100.0100, L500.2500 ####[facility] [address] [place], [address] Nucleated RBC (Bld) [#/Vol] 0 10*3/uL Normal 0-5 [facility] Comment on above: Performed By: #### L 100.0100, L500.2500 ####[facility] [address] [place], [address] Platelet mean volume (Bld) [Entitic vol] 10.5 fL Normal 6.2-12.0 [facility] Comment on above: Performed By: #### L 100.0100, L500.2500 ####[facility] [address] [place], [address] Platelets (Bld) [#/Vol] 115 10*3/uL Low 150-450 [facility] Comment on above: Performed By: #### L 100.0100, L500.2500 ####[facility] [address] [place], [address] RBC (Bld) [#/Vol] 3.81 10*6/uL Low 4.2-5.4 [facility] Comment on above: Performed By: #### L 100.0100, L500.2500 ####[facility] [address] [place], [address] RDW SD 47.6 fl High 35.1-43.9 [facility] Comment on above: Performed By: #### L 100.0100, L500.2500 ####[facility] [address] [place], [address] WBC (Bld) [#/Vol] 7.5 10*3/uL Normal 4.4-11.0 [facility] Comment on above: Performed By: #### L 100.0100, L500.2500 ####[facility] [address] [place], [address] Ketones Test strip Ql (U)Ord ered By: Garfield Pierson on 04-20-2025 Ketones Ql (U) Negative Negative [facility] Legionella Antigen Urineon 1 LEGU Normal [facility] Comment on above: Performed By: #### M 300.4500, M100.2200, M8200.1000, M100.678, L8200.1000, M300.4600, L400.0001 ####[facility] [address] [place], [address] Mucus LM Ql (Urine sed)Order ed By: Garfield Pierson on 04-20-2025 Mucus Ql (Urine sed) 0 SEEN /hpf [facility] Nitrite Test strip Ql (U)Ord ered By: Garfield Pierson on 04-20-2025 Nitrite Ql (U) Negative Negative [facility] No Panel InformationOrdered By: Garfield Pierson on 04-20-2025 Negative < 200 ng/mL [facility] Osmolality urOrdered By: Aminata Pierson on 04-20-2025 Osmolality (U) [Osmolality] 263 mOsm/KG >50 [facility] Osmolality, Urineon 04-20-20 25 OSMOLALITY,UR 263 mOsm/KG Normal [facility] Comment on above: Result Comment: Norm al Urine Reference Ranges Random: 50 - 1200 mOsm/kg H20 depending on fluid intake Random: >850 mOsm/kg after 12 hour fluid restriction 24 hour: 300 - 900 mOsm/kg H2O Performed By: #### L 501.7400 ####[facility] [address] [place], [address] Protein Test strip Ql (U)Ord ered By: Garfield Pierson on 04-20-2025 Protein Ql (U) 30 mg/dl High Negative [facility] Screening urine fentanyl bubba surementOrdered By: Garfield Pierson on 04-20-2025 fentaNYL Screen Ql (U) Negative <5 ng/mL [facility] Squamous epithelial cells de tection in urine sediment by light microscopyOrdered By: Garfield Pierson on 04-20-2025 Epithelial cells.squamous LM Ql (Urine sed) 0-5 SEEN /hpf 5-10 [facility] Strep pneumoniae Antig(UR,CS F)on 04-20-2025 STPAG Normal [facility] Comment on above: Performed By: #### M 300.4500, M100.2200, M8200.1000, M100.678, L8200.1000, M300.4600, L400.0001 ####[facility] [address] [place], [address] Transitional cells detection in urine sediment by light microscopyOrdered By: Garfield Pierson on 04-20-2025 Transitional cells LM Ql (Urine sed) 0-5 SEEN /hpf 0-5 [facility] Urinalysis, Completeon 04-20 EPI,SQUAMOUS 0-5 SEEN Normal 5-10 [facility] Comment on above: Order Comment: DALY CHAVEZ TO SPECIFY Performed By: #### M 300.4500, M100.2200, M8200.1000, M100.678, L8200.1000, M300.4600, L400.0001 ####[facility] [address], [address] EPI,TRANSITION 0-5 SEEN Normal 0-5 [facility] Comment on above: Order Comment: DALY CTOR TO SPECIFY Performed By: #### M 300.4500, M100.2200, M8200.1000, M100.678, L8200.1000, M300.4600, L400.0001 ####[facility] [address] [place], [address] BACTERIA 0 SEEN Normal None Seen [facility] Comment on above: Order Comment: DALY CTOR TO SPECIFY Performed By: #### M 300.4500, M100.2200, M8200.1000, M100.678, L8200.1000, M300.4600, L400.0001 ####[facility] [address] [place], [address] Mucus Ql (Urine sed) [address] [facility] Comment on above: Order Comment: DALY CTOR TO SPECIFY Performed By: #### M 300.4500, M100.2200, M8200.1000, M100.678, L8200.1000, M300.4600, L400.0001 ####[facility] [address] [place], [address] RBC 0 SEEN Normal 0-5 [facility] Comment on above: Order Comment: DALY CTOR TO SPECIFY Performed By: #### M 300.4500, M100.2200, M8200.1000, M100.678, L8200.1000, M300.4600, L400.0001 ####[facility] [address] [place], [address] WBC 0 SEEN Normal 0-5 [facility] Comment on above: Order Comment: DALY CTOR TO SPECIFY Performed By: #### M 300.4500, M100.2200, M8200.1000, M100.678, L8200.1000, M300.4600, L400.0001 ####[facility] [address] [place], [address] Urine Drug Screen (VISTA)on 04-20-2025 AMPHETAMINES Negative Normal <1000 ng/mL [facility] Comment on above: Performed By: #### L 505.5000 ####[facility] [address] [place], [place], [id number] BARBITIURATES Negative Normal < 200 ng/mL [facility] Comment on above: Performed By: #### L 505.5000 ####[facility] [address] [facility] [id number] BENZODIAZIPINE Negative Normal < 200 ng/mL [facility] Comment on above: Performed By: #### L 505.5000 ####[facility] [address] [place], [place], [address] BUP Ur Drug Scr Negative Normal < 200 ng/mL [facility] Comment on above: Performed By: #### L 505.5000 ####[facility] [address] [place], [place], [address] COCAINE Negative Normal < 300 ng/mL [facility] Comment on above: Performed By: #### L 505.5000 ####[facility] [address] [place], [phone] Fentanyl Negative Normal <5 ng/mL [facility] Comment on above: Result Comment: CONF [...] testmnemonic: [facility] Performed By: #### L 505.5000 ####[facility] [address] [place], [place], [address] METHADONE Negative Normal < 300 ng/mL [facility] Comment on above: Performed By: #### L 505.5000 ####[facility] [address] [place], [address] OPIATES Negative Normal < 300 ng/mL [facility] Comment on above: Performed By: #### L 505.5000 ####[facility] [address] [place], [address] OXYCODONE Negative Normal < 100 ng/mL [facility] Comment on above: Performed By: #### L 505.5000 ####[facility] [address] [place], [address] PCP Negative Normal < 25 ng/mL [facility] Comment on above: Performed By: #### L 505.5000 ####[facility] [address] [place], [address] THC Negative Normal < 50 ng/mL [facility] Comment on above: Performed By: #### L 505.5000 ####[facility] [address] [place], [address] Urine Legionella pneumophila antigen detectionOrdered By: Garfield Pierson on 04-20-2025 L. pneumophila Ag Ql (U) [facility] L. pneumophila Ag Ql (U) [facility] Urine Sodiumon 04-20-2025 Sodium (U) [Moles/Vol] 34 mmol/L Normal Not Establ. [facility] Comment on above: Performed By: #### L 501.5500 ####[facility] [address] [place], [address] Urine clarityOrdered By: Aminata Pierson on 04-20-2025 Clarity (U) Sl. Cloudy Clear [facility] Urine color determinationOrd ered By: Garfield Pierson on 04-20-2025 Color (U) Yellow Yellow [facility] Urine cultureOrdered By: Aminata Pierson on 04-20-2025 Bacteria identified Cx Nom (U) Mixed Gram Pos & Gram Neg Org Abnormal [facility] Bacteria identified Cx Nom (U) Mixed Gram Pos & Gram Neg Org Abnormal [facility] Urine glucose detectionOrder ed By: Garfield Pierson on 04-20-2025 Glucose Ql (U) 250 mg/dl High Normal [facility] Urine leukocyte esterase det ection by dipstickOrdered By: Garfield Pierson on 04-20-2025 Leukocyte esterase Test strip Ql (U) Negative Negative [facility] Urine pHOrdered By: Garfield Pierson on 04-20-2025 pH (U) 6.0 [pH] 5.0 - 8.0 [facility] Urine phencyclidine (PCP) de tectionOrdered By: Garfield Pierson on 04-20-2025 Phencyclidine Ql (U) Negative < 25 ng/mL [facility] Urine sediment bacteria coun t by microscopy (number/high power field)Ordered By: Garfield Pierson on 04-20-2025 Bacteria LM.HPF (Urine sed) [#/Area] 0 /[HPF] None Seen [facility] Urine sodium measurement (mo les/volume)Ordered By: Jermaine Simms on 04-20-2025 Sodium (U) [Moles/Vol] 34 mmol/L Not Establ. [facility] Urine specific gravity measu rementOrdered By: Garfield Pierson on 04-20-2025 Specific gravity (U) [Rel density] 1.010 1.002-1.030 [facility] Urine urobilinogen measureme ntOrdered By: Garfield Pierson on 04-20-2025 Urobilinogen Ql (U) Normal mg/dl Normal [facility] White blood cell countOrdere d By: Garfield Pierson on 04-20-2025 White blood cell count 0 SEEN /hpf 0-5 [facility] Basic Metabolic Profile (BMP )on 04-19-2025 BUN/CRE 28.8 RATIO High 04-21 [facility] Comment on above: Performed By: #### L 500.2500 ####[facility] [address] [place], [address] Calcium [Mass/Vol] 8.8 mg/dL Normal 7.6-11.0 [facility] Comment on above: Performed By: #### L 500.2500 ####[facility] [address] [place], [address] Chloride [Moles/Vol] 83 mmol/L Low 98-108 [facility] Comment on above: Performed By: #### L 500.2500 ####[facility] [address] [place], [address] CO2 [Moles/Vol] 33.7 mmol/L High 21.0-32.0 [facility] Comment on above: Performed By: #### L 500.2500 ####[facility] [address] [place], [address] Creatinine [Mass/Vol] 1.39 mg/dL High 0.70-1.20 [facility] Comment on above: Performed By: #### L 500.2500 ####[facility] [address] [place], [address] ECRCL 43.20 ml/min Low 50-250 [facility] Comment on above: Performed By: #### L 500.2500 ####[facility] [address] [place], [address] GAP 9 Normal 5-15 [facility] Comment on above: Performed By: #### L 500.2500 ####[facility] [address] [place], [address] GFR/1.73 sq M.predicted among non-blacks MDRD (S/P/Bld) [Vol rate/Area] 39 mL/min/{1.73_m2} Low >60 [facility] Comment on above: Result Comment: mL/m in/1.73m2 CKD-EPI Creatinine Equation (2020) Performed By: #### L 500.2500 ####[facility] [address] [place], [address] Glucose [Mass/Vol] 128 mg/dL High 70-99 [facility] [facility] Comment on above: Performed By: #### L 500.2500 ####[facility] [address] [place], [address] Potassium [Moles/Vol] 4.3 mmol/L Normal 3.3-5.1 [facility] Comment on above: Performed By: #### L 500.2500 ####[facility] [address] [place], [address] Sodium [Moles/Vol] 125 mmol/L Low 133-145 [facility] Comment on above: Performed By: #### L 500.2500 ####[facility] [address] [place], [address] Urea nitrogen [Mass/Vol] 40 mg/dL High 4-19 [facility] Comment on above: Performed By: #### L 500.2500 ####[facility] [address] [place], [address] BUN/CRE 30.5 RATIO High 10-20 [facility] Comment on above: Performed By: #### L 500.4100, L500.2500, L100.0500 ####[facility] [address] [place], [address] Calcium [Mass/Vol] 9.4 mg/dL Normal 7.6-11.0 [facility] Comment on above: Performed By: #### L 500.4100, L500.2500, L100.0500 ####[facility] [address] [place], [address] Chloride [Moles/Vol] 78 mmol/L Low 98-108 [facility] Comment on above: Performed By: #### L 500.4100, L500.2500, L100.0500 ####[facility] [address] [place], [address] CO2 [Moles/Vol] 40.9 mmol/L High 21.0-32.0 [facility] Comment on above: Performed By: #### L 500.4100, L500.2500, L100.0500 ####[facility] [address] [place], [address] Creatinine [Mass/Vol] 1.33 mg/dL High 0.70-1.20 [facility] Comment on above: Performed By: #### L 500.4100, L500.2500, L100.0500 ####[facility] [address] [place], [address] ECRCL 45.15 ml/min Low 50-250 [facility] Comment on above: Performed By: #### L 500.4100, L500.2500, L100.0500 ####[facility] [address] [place], [address] GAP 4 Low 5-15 [facility] Comment on above: Performed By: #### L 500.4100, L500.2500, L100.0500 ####[facility] [address] [place], [address] GFR/1.73 sq M.predicted among non-blacks MDRD (S/P/Bld) [Vol rate/Area] 41 mL/min/{1.73_m2} Low >60 [facility] Comment on above: Result Comment: mL/m in/1.73m2 CKD-EPI Creatinine Equation (2020) Performed By: #### L 500.4100, L500.2500, L100.0500 ####[facility] [address] [place], [address] Glucose [Mass/Vol] 105 mg/dL High 70-99 [facility] Comment on above: Performed By: #### L 500.4100, L500.2500, L100.0500 ####[facility] [address] [place], [address] Potassium [Moles/Vol] 4.4 mmol/L Normal 3.3-5.1 [facility] Comment on above: Performed By: #### L 500.4100, L500.2500, L100.0500 ####[facility] [address] [place], [address] Sodium [Moles/Vol] 123 mmol/L Low 133-145 [facility] Comment on above: Performed By: #### L 500.4100, L500.2500, L100.0500 ####[facility] [address] [place], [address] Urea nitrogen [Mass/Vol] 41 mg/dL High 4-19 [facility] Comment on above: Performed By: #### L 500.4100, L500.2500, L100.0500 ####[facility] [address] [place], [address] Bedside Glucoseon 04-19-2025 FINGERSTICK GLU 108 mg/dL High 74-106 [facility] Comment on above: Result Comment: ROSA ISELA GEMENT OF PATIENT CARE PER NURSING PROTOCOL Performed By: #### L 501.080 ####[facility] [address] [place], [address] Blood cultureOrdered By: Aminata Pierson on 04-19-2025 Bacteria identified Cx Nom (Bld) No growth in 5 days. [facility] Bacteria identified Cx Nom (Bld) No growth in 5 days. [facility] Bacteria identified Cx Nom (Bld) No growth in 5 days. [facility] Bacteria identified Cx Nom (Bld) No growth in 5 days. [facility] CBC W/Diff, Automatedon 10- Absolute Lymph 1.28 X10 3/uL Normal 0.83-4.51 [facility] Comment on above: Performed By: #### L 100.0100, M200.1000, L503.6005, L501.3620 ####[facility] [address] [place], [address] Absolute Neut 6.0 X10 3/uL Normal 2.0-7.7 [facility] Comment on above: Performed By: #### L 100.0100, M200.1000, L503.6005, L501.3620 ####[facility] [address] [place], [address] Basophils/100 WBC (Bld) 0.4 % Normal 0-1 [facility] Comment on above: Performed By: #### L 100.0100, M200.1000, L503.6005, L501.3620 ####[facility] [address] [place], [address] Eosinophils/100 WBC (Bld) 2.7 % Normal 0-5 [facility] Comment on above: Performed By: #### L 100.0100, M200.1000, L503.6005, L501.3620 ####[facility] [address] [place], [address] Erythrocyte distribution width (RBC) [Ratio] 14.5 % Normal 11.6-14.6 [facility] Comment on above: Performed By: #### L 100.0100, M200.1000, L503.6005, L501.3620 ####[facility] [address] [place], [address] Hematocrit (Bld) [Volume fraction] 34.7 % Low 37-47 [facility] Comment on above: Performed By: #### L 100.0100, M200.1000, L503.6005, L501.3620 ####[facility] [address] [place], [address] Hemoglobin (Bld) [Mass/Vol] 11.3 g/dL Low 12.0-15.0 [facility] Comment on above: Performed By: #### L 100.0100, M200.1000, L503.6005, L501.3620 ####[facility] [address] [place], [address] IG% 0.900 Normal 0.0-0.9 [facility] Comment on above: Result Comment: IG% - Immature Granulocytes (promyelocytes, myelocytes andmetamyelocytes) > 1% indicates that a LEFT SHIFT is Present. Performed By: #### L 100.0100, M200.1000, L503.6005, L501.3620 ####[facility] [address] [place], [address] Lymphocytes/100 WBC (Bld) 15.6 % Low 19-41 [facility] Comment on above: Performed By: #### L 100.0100, M200.1000, L503.6005, L501.3620 ####[facility] [address] [place], [address] MCH (RBC) [Entitic mass] 29.7 pg Normal 27.0-32.0 [facility] Comment on above: Performed By: #### L 100.0100, M200.1000, L503.6005, L501.3620 ####[facility] [address] [place], [address] MCHC (RBC) [Mass/Vol] 32.6 g/dL Normal 32-36 [facility] Comment on above: Performed By: #### L 100.0100, M200.1000, L503.6005, L501.3620 ####[facility] [address] [place], [address] MCV (RBC) [Entitic vol] 91.1 fL Normal 81-99 [facility] Comment on above: Performed By: #### L 100.0100, M200.1000, L503.6005, L501.3620 ####[facility] [address] [place], [address] Monocytes/100 WBC (Bld) 7.9 % Normal 0-10 [facility] Comment on above: Performed By: #### L 100.0100, M200.1000, L503.6005, L501.3620 ####[facility] [address] [place], [address] Neutrophils/100 WBC (Bld) 72.5 % High 47-70 [facility] Comment on above: Performed By: #### L 100.0100, M200.1000, L503.6005, L501.3620 ####[facility] [address] [place], [address] Nucleated RBC (Bld) [#/Vol] 0 10*3/uL Normal 0-5 [facility] Comment on above: Performed By: #### L 100.0100, M200.1000, L503.6005, L501.3620 ####[facility] [address] [place], [address] Platelet mean volume (Bld) [Entitic vol] 10.7 fL Normal 6.2-12.0 [facility] Comment on above: Performed By: #### L 100.0100, M200.1000, L503.6005, L501.3620 ####[facility] [address] [place], [address] Platelets (Bld) [#/Vol] 121 10*3/uL Low 150-450 [facility] Comment on above: Performed By: #### L 100.0100, M200.1000, L503.6005, L501.3620 ####[facility] [address] [place], [address] RBC (Bld) [#/Vol] 3.81 10*6/uL Low 4.2-5.4 [facility] Comment on above: Performed By: #### L 100.0100, M200.1000, L503.6005, L501.3620 ####[facility] [address] [place], [address] RDW SD 48.4 fl High 35.1-43.9 [facility] Comment on above: Performed By: #### L 100.0100, M200.1000, L503.6005, L501.3620 ####[facility] [address] [place], [address] WBC (Bld) [#/Vol] 8.2 10*3/uL Normal 4.4-11.0 [facility] Comment on above: Performed By: #### L 100.0100, M200.1000, L503.6005, L501.3620 ####[facility] [address] [place], [address] CBC-Complete Blood Cnt No Di ffon 04-19-2025 Erythrocyte distribution width (RBC) [Ratio] 14.3 % Normal 11.6-14.6 [facility] Comment on above: Performed By: #### L 500.4100, L500.2500, L100.0500 ####[facility] [address] [place], [address] Hematocrit (Bld) [Volume fraction] 36.7 % Low 37-47 [facility] Comment on above: Performed By: #### L 500.4100, L500.2500, L100.0500 ####[facility] [address] [place], [address] Hemoglobin (Bld) [Mass/Vol] 12.1 g/dL Normal 12.0-15.0 [facility] Comment on above: Performed By: #### L 500.4100, L500.2500, L100.0500 ####[facility] [address] [place], [address] MCH (RBC) [Entitic mass] 29.4 pg Normal 27.0-32.0 [facility] Comment on above: Performed By: #### L 500.4100, L500.2500, L100.0500 ####[facility] [address] [place], [address] MCHC (RBC) [Mass/Vol] 33.0 g/dL Normal 32-36 [facility] Comment on above: Performed By: #### L 500.4100, L500.2500, L100.0500 ####[facility] [address] [place], [address] MCV (RBC) [Entitic vol] 89.3 fL Normal 81-99 [facility] Comment on above: Performed By: #### L 500.4100, L500.2500, L100.0500 ####[facility] [address] [place], [address] Platelet mean volume (Bld) [Entitic vol] 10.6 fL Normal 6.2-12.0 [facility] Comment on above: Performed By: #### L 500.4100, L500.2500, L100.0500 ####[facility] [address] [place], [address] Platelets (Bld) [#/Vol] 129 10*3/uL Low 150-450 [facility] Comment on above: Performed By: #### L 500.4100, L500.2500, L100.0500 ####[facility] [address] [place], [address] RBC (Bld) [#/Vol] 4.11 10*6/uL Low 4.2-5.4 [facility] Comment on above: Performed By: #### L 500.4100, L500.2500, L100.0500 ####[facility] [address] [place], [address] RDW SD 47.1 fl High 35.1-43.9 [facility] Comment on above: Performed By: #### L 500.4100, L500.2500, L100.0500 ####[facility] [address] [place], [address] WBC (Bld) [#/Vol] 7.7 10*3/uL Normal 4.4-11.0 [facility] Comment on above: Performed By: #### L 500.4100, L500.2500, L100.0500 ####[facility] [address] [place], [address] CO2 (BldV) [Moles/Vol]Ordere d By: Garfield Pierson on 04-19-2025 CO2 [Moles/Vol] 34 mmol/L High 23-33 [facility] CPK Total, Creatine Kinaseon 04-19-2025 CPK TOTAL 65 U/L Normal 24-195 [facility] Comment on above: Performed By: #### L 100.0100, M200.1000, L503.6005, L501.3620 ####[facility] [address] [place], [address] Calculated very low density lipoprotein (VLDL) cholesterol measurementOrdered By: Jermaine Simms on 04-19-2025 Calculated very low density lipoprotein (VLDL) cholesterol measurement 25 mg/dL 5-40 [facility] Chest 1 View (Portable)on Chest 1 View (Portable) Normal [facility] Consultation - Intensiviston 04-19-2025 Consultation - Latin American Studies Professor Normal [facility] deOrdered By: Jermaine Simms on 04-19-2025 Glucose [Mass/Vol] 108 mg/dL High 74-106 [facility] Influenza virus A and B and SARS-CoV-2 (COVID-19) and Respiratory syncytial virus RNAOrdered By: Garfield Pierson on 04-19-2025 SARS-CoV-2 (COVID-19) RNA RANJIT+probe Ql (Unsp spec) [facility] SARS-CoV-2 (COVID-19) RNA RANJIT+probe Ql (Unsp spec) [facility] L509.6001on 04-19-2025 CORTISOL 18.40 ug/dL Normal 6.02-18.40 [facility] Comment on above: Performed By: #### L 509.6001 ####[facility] [address] [place], [address] LDL calc ser/plasOrdered By: Jermaine Simms on 04-19-2025 Cholesterol in LDL [Mass/Vol] 113 mg/dL [facility] Lactic Acidon 04-19-2025 Lactate [Moles/Vol] 1.3 mmol/L Normal 0.0-2.0 [facility] Comment on above: Order Comment: Y Performed By: #### L 100.0100, M200.1000, L503.6005, L501.3620 ####[facility] [address] [place], [address] Lipid Profileon 04-19-2025 CHOL:HDL 2.89 Normal [facility] Comment on above: Performed By: #### L 500.4100, L500.2500, L100.0500 ####[facility] [address] [place], [address] Cholesterol [Mass/Vol] 206 mg/dL High <=200 [facility] Comment on above: Result Comment: Chol esterol level, Desirable <200 mg/dLBorderline high cholesterol 200-239 mg/dLHigh cholesterol >=240 mg/dLRecommendations of the NCEP Adult Treatment Panel for thefollowing risk-cutoff thresholds for the [place] Americanpulation. Performed By: #### L 500.4100, L500.2500, L100.0500 ####[facility] [address] [place], [address] Cholesterol in HDL [Mass/Vol] 71 mg/dL Normal [facility] Comment on above: Result Comment: Aliya onal Cholesterol Education Program (NCEP) guidelines:<40 mg/dL: Low HDL-cholesterol (major risk factor for CHD)>= 60 mg/dL: High HDL-cholesterol (negative risk factor forCHD)HDL-cholesterol is affected by a number of factors, e.g.smoking, exercise, hormones, sex and age. Performed By: #### L 500.4100, L500.2500, L100.0500 ####[facility] [address] [place], [address] Cholesterol in LDL [Mass/Vol] 113 mg/dL Normal [facility] Comment on above: Result Comment: Bord zbyuam=082-723 mg/dL Higher Yhts=147 mg/dL or greaterSampson Equation 2020 for LDL-C Performed By: #### L 500.4100, L500.2500, L100.0500 ####[facility] [address] [place], [address] Cholesterol in VLDL [Mass/Vol] 25 mg/dL Normal 5-40 [facility] Comment on above: Performed By: #### L 500.4100, L500.2500, L100.0500 ####[facility] [address] [place], [address] Triglyceride [Mass/Vol] 125 mg/dL Normal [facility] Comment on above: Result Comment: The drugs N-Acetylcysteine and Metamizole may falselydepress this assay.Normal range: <150 mg/dLBorderline High: 150-199 mg/dLHigh: 200-499 mg/dLVery High: >500 mg/dL Performed By: #### L 500.4100, L500.2500, L100.0500 ####[facility] [address] [place], [address] M R Staph Aureus DNA by PCRo n 04-19-2025 MRSA DNA ASSAY Normal Negative [facility] Comment on above: Result Comment: DUPL ICATE ORDER Performed By: #### M 300.4500, M100.2200, M8200.1000, M100.678, L8200.1000, M300.4600, L400.0001 ####[facility] [address] [place], [address] PROBE CHECK Normal [facility] Comment on above: Result Comment: DUPL ICATE ORDER Performed By: #### M 300.4500, M100.2200, M8200.1000, M100.678, L8200.1000, M300.4600, L400.0001 ####[facility] [address] [place], [place], [phone] SPC Normal [facility] Comment on above: Result Comment: DUPL ICATE ORDER Performed By: #### M 300.4500, M100.2200, M8200.1000, M100.678, L8200.1000, M300.4600, L400.0001 ####[facility] [address] [place], [address] M100.678on 04-19-2025 M100.678 SARS-CoV-2 (COVID 19 ) Negative INFLUENZA A Negative INFLUENZA B Negative RSV PCR Negative Normal [facility] Comment on above: Performed By: #### M 300.4500, M100.2200, M8200.1000, M100.678, L8200.1000, M300.4600, L400.0001 ####[facility] [address] [facility] [place], [place], [id number] M8200.1000on 04-19-2025 M8200.1000 Normal Reference Ran ge = Negative MRSA DNA Nose Ql RANJIT+probe GeneXpert Instrument, PCR method MRSA PCR MRSA NEGATIVE Normal [facility] Comment on above: Performed By: #### M 300.4500, M100.2200, M8200.1000, M100.678, L8200.1000, M300.4600, L400.0001 ####[facility] [address] [place], [place], [phone] Nasal methicillin resistant Staphylococcus aureus (MRSA) DNA detection by PCROrdered By: Garfield Pierson on 04-19-2025 MRSA DNA RANJIT+probe Ql (Nose) [facility] MRSA DNA RANJIT+probe Ql (Nose) [facility] No Panel InformationOrdered By: Garfield Pierson on 04-19-2025 MARICRUZ [facility] Not entered [facility] Cannula [facility] Osmolality, Serumon 04-19-20 25 OSMOLALITY,SER 279 mOsm/KG Low 280-301 [facility] Comment on above: Performed By: #### L 501.7300 ####[facility] [address] [place], [address] Serum or plasma cholesterol in HDL measurement (mass/volume)Ordered By: Jermaine Simms on 04-19-2025 Cholesterol in HDL [Mass/Vol] 71 mg/dL >40 [facility] Serum or plasma cholesterol measurement (mass/volume)Ordered By: Jermaine Simms on 04-19-2025 Cholesterol [Mass/Vol] 206 mg/dL High <201 [facility] Serum or plasma cortisol bubba surement (mass/volume)Ordered By: Jermaine Simms on 04-19-2025 Cortisol [Mass/Vol] 18.40 ug/dL 6.02-18.40 [facility] Serum or plasma creatine kin ase activityOrdered By: Garfield Pierson on 04-19-2025 CK [Catalytic activity/Vol] 65 U/L 24-195 [facility] Venous Blood Gason 5 Blood Gas Type MARICRUZ [facility] Comment on above: Performed By: #### L 9000.0810 ####[facility] [address] [place], [address] CO2 [Moles/Vol] 34 mmol/L High 23-33 [facility] Comment on above: Performed By: #### L 9000.0810 ####[facility] [address] [place], [address] FI02 2.0 Normal [facility] Comment on above: Performed By: #### L 9000.0810 ####[facility] [address] [place], [address] HCO3 (Bld) [Moles/Vol] 33 mmol/L High 22-26 [facility] Comment on above: Performed By: #### L 9000.0810 ####[facility] [address] [place], [address] O2 Delivery Dev Cannula Normal [facility] Comment on above: Performed By: #### L 9000.0810 ####[facility] [address] [place], [address] SITE Not entered Normal [facility] Comment on above: Performed By: #### L 9000.0810 ####[facility] [address] [place], [address] VBG BE 10 mmol/L High -1.0-3.5 [facility] Comment on above: Performed By: #### L 9000.0810 ####[facility] [address] [place], [address] VBG pCO2 44.6 mmHg Normal 41-51 [facility] Comment on above: Performed By: #### L 9000.0810 ####[facility] [address] [place], [address] VBG pH 7.48 High 7.32-7.42 [facility] Comment on above: Performed By: #### L 9000.0810 ####[facility] [address] [place], [address] VBG PO2 133 mmHg High 25-40 [facility] Comment on above: Performed By: #### L 9000.0810 ####[facility] [address] [place], [address] VBG SO2 99 High 50-70 [facility] Comment on above: Performed By: #### L 9000.0810 ####[facility] [address] [place], [address] Venous blood base excess bubba surementOrdered By: Garfield Pierson on 04-19-2025 Base excess Calc (BldV) [Moles/Vol] 10 mmol/L High -1.0-3.5 [facility] Venous blood bicarbonate bubba surementOrdered By: Garfield Pierson on 04-19-2025 HCO3 (Bld) [Moles/Vol] 33 mmol/L High 22-26 [facility] Venous blood pH measurementO rdered By: Garfield Pierson on 04-19-2025 pH (BldV) 7.48 [pH] High 7.32-7.42 [facility] Venous blood partial pressur e of carbon dioxide measurementOrdered By: Garfield Pierson on 04-19-2025 CO2 (BldV) [Partial pressure] 44.6 mm[Hg] 41-51 [facility] Venous blood partial pressur e of oxygen measurementOrdered By: Garfield Pierson on 04-19-2025 Oxygen (BldV) [Partial pressure] 133 mm[Hg] High 25-40 [facility] Bilirubin, totalOrdered By: Deion Levy on 04-18-2025 Bilirubin [Mass/Vol] 0.41 mg/dL 0.00-1.30 [facility] CBC W/Diff, Automatedon 04-02 Absolute Lymph 1.09 X10 3/uL Normal 0.83-4.51 [facility] Comment on above: Performed By: #### L 100.0100, L500.4050 ####[facility] [address] [place], [address] Absolute Neut 7.8 X10 3/uL High 2.0-7.7 [facility] Comment on above: Performed By: #### L 100.0100, L500.4050 ####[facility] [address] [place], [address] Basophils/100 WBC (Bld) 0.2 % Normal 0-1 [facility] Comment on above: Performed By: #### L 100.0100, L500.4050 ####[facility] [address] [place], [address] Eosinophils/100 WBC (Bld) 1.6 % Normal 0-5 [facility] Comment on above: Performed By: #### L 100.0100, L500.4050 ####[facility] [address] [place], [address] Erythrocyte distribution width (RBC) [Ratio] 13.9 % Normal 11.6-14.6 [facility] Comment on above: Performed By: #### L 100.0100, L500.4050 ####[facility] [address] [place], [address] Hematocrit (Bld) [Volume fraction] 40.0 % Normal 37-47 [facility] Comment on above: Performed By: #### L 100.0100, L500.4050 ####[facility] [address] [place], [address] Hemoglobin (Bld) [Mass/Vol] 13.1 g/dL Normal 12.0-15.0 [facility] Comment on above: Performed By: #### L 100.0100, L500.4050 ####[facility] [address] [place], [address] IG% 0.600 Normal 0.0-0.9 [facility] Comment on above: Result Comment: IG% - Immature Granulocytes (promyelocytes, myelocytes andmetamyelocytes) > 1% indicates that a LEFT SHIFT is Present. Performed By: #### L 100.0100, L500.4050 ####[facility] [address] [place], [address] Lymphocytes/100 WBC (Bld) 10.9 % Low 19-41 [facility] Comment on above: Performed By: #### L 100.0100, L500.4050 ####[facility] [address] [place], [address] MCH (RBC) [Entitic mass] 29.2 pg Normal 27.0-32.0 [facility] Comment on above: Performed By: #### L 100.0100, L500.4050 ####[facility] [address] [place], [address] MCHC (RBC) [Mass/Vol] 32.8 g/dL Normal 32-36 [facility] Comment on above: Performed By: #### L 100.0100, L500.4050 ####[facility] [address] [place], [address] MCV (RBC) [Entitic vol] 89.1 fL Normal 81-99 [facility] Comment on above: Performed By: #### L 100.0100, L500.4050 ####[facility] [address] [place], [address] Monocytes/100 WBC (Bld) 8.9 % Normal 0-10 [facility] Comment on above: Performed By: #### L 100.0100, L500.4050 ####[facility] [address] [place], [address] Neutrophils/100 WBC (Bld) 77.8 % High 47-70 [facility] Comment on above: Performed By: #### L 100.0100, L500.4050 ####[facility] [address] [place], [address] Nucleated RBC (Bld) [#/Vol] 0 10*3/uL Normal 0-5 [facility] Comment on above: Performed By: #### L 100.0100, L500.4050 ####[facility] [address] [place], [address] Platelet mean volume (Bld) [Entitic vol] 11.7 fL Normal 6.2-12.0 [facility] Comment on above: Performed By: #### L 100.0100, L500.4050 ####[facility] [address] [place], [address] Platelets (Bld) [#/Vol] 160 10*3/uL Normal 150-450 [facility] Comment on above: Performed By: #### L 100.0100, L500.4050 ####[facility] [address] [place], [address] RBC (Bld) [#/Vol] 4.49 10*6/uL Normal 4.2-5.4 [facility] Comment on above: Performed By: #### L 100.0100, L500.4050 ####[facility] [address] [place], [address] RDW SD 45.1 fl High 35.1-43.9 [facility] Comment on above: Performed By: #### L 100.0100, L500.4050 ####[facility] [address] [place], [address] WBC (Bld) [#/Vol] 10.0 10*3/uL Normal 4.4-11.0 [facility] Comment on above: Performed By: #### L 100.0100, L500.4050 ####[facility] [address] [place], [address] Comprehensive Metabolic Prof [facility] 04-18-2025 Albumin [Mass/Vol] 3.7 g/dL Normal 3.4-4.8 [facility] Comment on above: Performed By: #### L 100.0100, L500.4050 ####[facility] [address] [place], [address] Albumin/Globulin [Mass ratio] 1.2 {ratio} Normal 0.9-2.4 [facility] Comment on above: Performed By: #### L 100.0100, L500.4050 ####[facility] [address] [place], [address] ALK PHOS 123 U/L High 35-104 [facility] Comment on above: Performed By: #### L 100.0100, L500.4050 ####[facility] [address] [place], [address] ALT [Catalytic activity/Vol] 32 U/L Normal <=34 [facility] Comment on above: Performed By: #### L 100.0100, L500.4050 ####[facility] [address] [place], [address] AST [Catalytic activity/Vol] 50 U/L High <=31 [facility] Comment on above: Result Comment: Hemo lysis present, Results??could be affected.?? Performed By: #### L 100.0100, L500.4050 ####[facility] [address] [place], [address] Bilirubin [Mass/Vol] 0.41 mg/dL Normal 0.00-1.30 [facility] Comment on above: Performed By: #### L 100.0100, L500.4050 ####[facility] [address] [place], [address] BUN/CRE 40.9 RATIO High 10-20 [facility] Comment on above: Performed By: #### L 100.0100, L500.4050 ####[facility] [address] [place], [address] Calcium [Mass/Vol] 9.7 mg/dL Normal 7.6-11.0 [facility] Comment on above: Performed By: #### L 100.0100, L500.4050 ####[facility] [address] [place], [address] Chloride [Moles/Vol] 73 mmol/L Invalid Interpretation Code 98-108 [facility] Comment on above: Result Comment: Crit ical Result(s) Called at: 1613 by:??PIERRE YANG Results read back by same. Performed By: #### L 100.0100, L500.4050 ####[facility] [address] [place], [address] CO2 [Moles/Vol] 42.5 mmol/L High 21.0-32.0 [facility] Comment on above: Performed By: #### L 100.0100, L500.4050 ####[facility] [address] [place], [address] Creatinine [Mass/Vol] 1.30 mg/dL High 0.70-1.20 [facility] Comment on above: Performed By: #### L 100.0100, L500.4050 ####[facility] [address] [place], [address] ECRCL 46.24 ml/min Low 50-250 [facility] Comment on above: Performed By: #### L 100.0100, L500.4050 ####[facility] [address] [place], [address] GAP 6 Normal 5-15 [facility] Comment on above: Performed By: #### L 100.0100, L500.4050 ####[facility] [address] [place], [address] GFR/1.73 sq M.predicted among non-blacks MDRD (S/P/Bld) [Vol rate/Area] 43 mL/min/{1.73_m2} Low >60 [facility] Comment on above: Result Comment: mL/m in/1.73m2 CKD-EPI Creatinine Equation (2020) Performed By: #### L 100.0100, L500.4050 ####[facility] [address] [place], [address] Globulin (S) [Mass/Vol] 3.0 g/dL Normal 2.2-4.2 [facility] Comment on above: Performed By: #### L 100.0100, L500.4050 ####[facility] [address] [place], [address] Glucose [Mass/Vol] 102 mg/dL High 70-99 [facility] Comment on above: Performed By: #### L 100.0100, L500.4050 ####[facility] [address] [place], [address] Potassium [Moles/Vol] 5.4 mmol/L High 3.3-5.1 [facility] Comment on above: Result Comment: Hemo lysis present, Results??could be affected.?? Performed By: #### L 100.0100, L500.4050 ####[facility] [address] [place], [address] Sodium [Moles/Vol] 121 mmol/L Low 133-145 [facility] Comment on above: Performed By: #### L 100.0100, L500.4050 ####[facility] [address] [place], [address] T PROT 6.6 g/dL Normal 5.9-8.4 [facility] Comment on above: Performed By: #### L 100.0100, L500.4050 ####[facility] [address] [place], [address] Urea nitrogen [Mass/Vol] 53 mg/dL High 4-19 [facility] Comment on above: Performed By: #### L 100.0100, L500.4050 ####[facility] [address] [place], [address] Emergency Department Summary on 04-18-2025 Emergency Department Summary Normal [facility] H AND P Exam - Hospitaliston 04-18-2025 H&P Exam - Hospitalist Normal [facility] No Panel InformationOrdered By: Deion Levy on 04-18-2025 50 U/L High <32 [facility] Osmolality, Serumon 04-18-20 25 OSMOLALITY,SER 310 mOsm/KG High 280-301 [facility] Comment on above: Order Comment: Comme nts: ok to add on Performed By: #### L 501.7300 ####[facility] [address] [place], [address] Serum globulin measurementOr dered By: Deion Levy on 04-18-2025 Globulin (S) [Mass/Vol] 3.0 g/dL 2.2-4.2 [facility] Serum or plasma alanine gao otransferase (ALT) measurementOrdered By: [facility] on 04-18-2025 ALT [Catalytic activity/Vol] 32 U/L <35 [facility] Serum or plasma albumin lisa urement (mass/volume)Ordered By: [facility] on 04-18-2025 Albumin [Mass/Vol] 3.7 g/dL 3.4-4.8 [facility] Serum or plasma albumin/glob ulin mass ratioOrdered By: [facility] on 04-18-2025 Albumin/Globulin [Mass ratio] 1.2 {ratio} 0.9-2.4 [facility] Serum or plasma alkaline bee sphatase measurementOrdered By: [facility] on 04-18-2025 ALP [Catalytic activity/Vol] 123 U/L High 35-104 [facility] Total proteinOrdered By: [facility] on 04-18-2025 Protein [Mass/Vol] 6.6 g/dL 5.9-8.4 [facility] Comprehensive Metabolic Prof ilon 04-17-2025 Chloride [Moles/Vol] 74 mmol/L Invalid Interpretation Code 98-108 [facility] Comment on above: Order Comment: Order Date: 04/10/25Order Info: 0786-1 - CMPadd on lab Result Comment: Crit ical Result(s) Called at: 0810 04/17/25 by:RASHAWN???Results read back by same. AMENDED REPORT 04/17/25 0811 CL previously reported as: 74 *L mmol/LCritical Result(s) Called at: by:??Results read back bysame. Performed By: #### L 501.7300, L500.4050 ####[facility] [address] [place], [place], [id number] Anion gap in Serum or Plasma Ordered By: Kamar Grimes on 04-16-2025 Anion gap [Moles/Vol] 7 mmol/L 11-14 [facility] BUN/creatinine ratioOrdered By: Kamar Grimes on 04-16-2025 Urea nitrogen/Creatinine [Mass ratio] 42.5 mg/mg High 04-21 [facility] Bilirubin, totalOrdered By: Kamar Grimes on 04-16-2025 Bilirubin [Mass/Vol] 0.40 mg/dL 0.00-1.30 [facility] Carbon dioxide, total [Moles /volume] in Central venous bloodOrdered By: Kamar Grimes on 04-16-2025 CO2 [Moles/Vol] 44.0 mmol/L High 21.0-32.0 [facility] Cardiology Visit Reporton Cardiology Visit Report Normal [facility] Chloride assayOrdered By: Jennifer Grimes on 04-16-2025 Chloride [Moles/Vol] 74 mmol/L Critically low 98-108 [facility] Glomerular filtration rate ( GFR) estimation/1.73 sq m using serum, plasma, or whole bOrdered By: Kamar Grimes on 04-16-2025 GFR/1.73 sq M.predicted among non-blacks MDRD (S/P/Bld) [Vol rate/Area] 27 mL/min/{1.73_m2} Low >60 [facility] No Panel InformationOrdered By: Kamar Grimes on 04-16-2025 45 U/L High <32 [facility] Osmolality, Serumon 04-16-20 25 OSMOLALITY,SER 300 mOsm/KG Normal 280-301 [facility] Comment on above: Order Comment: Order Date: 04/10/25Order Info: 2692-2 - OS Performed By: #### L 501.7300, L500.4050 ####[facility] [address] [place], [place], [address] Potassium measurement (mass/ volume)Ordered By: Kamar Grimes on 04-16-2025 Potassium (Unsp spec) [Mass/Vol] 5.1 mmol/L 3.3-5.1 [facility] Serum creatinine measurement (mass/volume)Ordered By: Kamar Grimes on 04-16-2025 Creatinine [Mass/Vol] 1.91 mg/dL High 0.70-1.20 [facility] Serum globulin measurementOr dered By: Kamar Grimes on 04-16-2025 Globulin (S) [Mass/Vol] 3.0 g/dL 2.2-4.2 [facility] Serum glucose measurement (m ass/volume)Ordered By: Kamar Grimes on 04-16-2025 Glucose [Mass/Vol] 108 mg/dL High 70-99 [facility] Serum or plasma alanine gao otransferase (ALT) measurementOrdered By: Kamar Grimes on 04-16-2025 ALT [Catalytic activity/Vol] 29 U/L <35 [facility] Serum or plasma albumin lisa urement (mass/volume)Ordered By: Kamar Grimes on 04-16-2025 Albumin [Mass/Vol] 3.9 g/dL 3.4-4.8 [facility] Serum or plasma albumin/glob ulin mass ratioOrdered By: Kamar Grimes on 04-16-2025 Albumin/Globulin [Mass ratio] 1.3 {ratio} 0.9-2.4 [facility] Serum or plasma alkaline bee sphatase measurementOrdered By: Kamar Grimes on 04-16-2025 ALP [Catalytic activity/Vol] 140 U/L High 35-104 [facility] Serum or plasma calcium lisa urement (mass/volume)Ordered By: Kamar Grimes on 04-16-2025 Calcium [Mass/Vol] 9.8 mg/dL 7.6-11.0 [facility] Serum or plasma urea nitroge n measurement (mass/volume)Ordered By: Kamar Grimes on 04-16-2025 Urea nitrogen [Mass/Vol] 81 mg/dL High 4-19 [facility] Sodium levelOrdered By: Kamar Grimes on 04-16-2025 Sodium [Moles/Vol] 125 mmol/L Low 133-145 [facility] Total proteinOrdered By: Esmer Grimes on 04-16-2025 Protein [Mass/Vol] 6.9 g/dL 5.9-8.4 [facility] Absolute lymphocyte countOrd ered By: Kamar Grimes on 04-09-2025 Lymphocytes Auto (Unsp spec) [#/Vol] 1.43 10*3/uL 0.83-4.51 [facility] Anion gap in Serum or Plasma Ordered By: Kamar Grimes on 04-09-2025 Anion gap [Moles/Vol] 11 mmol/L 5-15 [facility] Automated lymphocyte count a s percentage of total leukocytesOrdered By: Kamar Grimes on 04-09-2025 Lymphocytes/100 WBC Auto (Unsp spec) 13.0 % Low 19-41 [facility] BUN/creatinine ratioOrdered By: Kamar Grimes on 04-09-2025 Urea nitrogen/Creatinine [Mass ratio] 29.4 mg/mg High 10- [facility] Basic Metabolic Profile (BMP )on 04-09-2025 BUN Normal 4-19 [facility] Comment on above: Order Comment: Order Date: 03/31/25Order Info: 06-1 - BMP Result Comment: DUPL ICATE-CMP ORDERED Performed By: #### L 500.2500 ####[facility] [address] [place], [address] BUN/CRE Normal 10- [facility] Comment on above: Order Comment: Order Date: 03/31/25Order Info: 0667-1 - BMP Result Comment: DUPL ICATE-CMP ORDERED Performed By: #### L 500.2500 ####[facility] [address] [place], [address] Calcium Normal 7.6-11.0 [facility] Comment on above: Order Comment: Order Date: 03/31/25Order Info: 0667-1 - BMP Result Comment: DUPL ICATE-CMP ORDERED Performed By: #### L 500.2500 ####[facility] [address] [place], [address] CL Normal 98-108 [facility] Comment on above: Order Comment: Order Date: 03/31/25Order Info: 0667-1 - BMP Result Comment: DUPL ICATE-CMP ORDERED Performed By: #### L 500.2500 ####[facility] [address] [place], [address] CO2 Normal 21.0-32.0 [facility] Comment on above: Order Comment: Order Date: 03/31/25Order Info: 666- - BMP Result Comment: DUPL ICATE-CMP ORDERED Performed By: #### L 500.2500 ####[facility] [address] [place], [address] CREAT,SERUM Normal 0.70-1.20 [facility] Comment on above: Order Comment: Order Date: 03/31/25Order Info: 666- - BMP Result Comment: DUPL ICATE-CMP ORDERED Performed By: #### L 500.2500 ####[facility] [address] [place], [address] eGFR Normal >60 [facility] Comment on above: Order Comment: Order Date: 03/31/25Order Info: 666- - BMP Result Comment: DUPL ICATE-CMP ORDERED Performed By: #### L 500.2500 ####[facility] [address] [place], [address] GAP Normal 5-15 [facility] Comment on above: Order Comment: Order Date: 03/31/25Order Info: 666- - BMP Result Comment: DUPL ICATE-CMP ORDERED Performed By: #### L 500.2500 ####[facility] [address] [place], [address] GLU Normal 70-99 [facility] Comment on above: Order Comment: Order Date: 03/31/25Order Info: 666- - BMP Result Comment: DUPL ICATE-CMP ORDERED Performed By: #### L 500.2500 ####[facility] [address] [place], [address] Potassium Normal 3.3-5.1 [facility] Comment on above: Order Comment: Order Date: 03/31/25Order Info: 0667-1 - BMP Result Comment: DUPL ICATE-CMP ORDERED Performed By: #### L 500.2500 ####[facility] [address] [place], [address] Basic Metabolic Profile (BMP) Normal 133-145 [facility] Comment on above: Order Comment: Order Date: 03/31/25Order Info: 0667-1 - BMP Result Comment: DUPL ICATE-CMP ORDERED Performed By: #### L 500.2500 ####[facility] [address] [place], [address] Basophil percentageOrdered B y: Kamar Grimes on 04-09-2025 Basophils/100 WBC (Bld) 0.5 % 0-1 [facility] Bilirubin, totalOrdered By: Kamar Grimes on 04-09-2025 Bilirubin [Mass/Vol] 0.47 mg/dL 0.00-1.30 [facility] CBC W/Diff, Automatedon 10-0 Absolute Lymph 1.43 X10 3/uL Normal 0.83-4.51 [facility] Comment on above: Order Comment: Order Date: 04/09/25Order Info: 0184-1 - CBCD Performed By: #### L 100.0100, L500.4050 ####[facility] [address] [place], [address] Absolute Neut 8.3 X10 3/uL High 2.0-7.7 [facility] Comment on above: Order Comment: Order Date: 04/09/25Order Info: 0184-1 - CBCD Performed By: #### L 100.0100, L500.4050 ####[facility] [address] [place], [address] Basophils/100 WBC (Bld) 0.5 % Normal 0-1 [facility] Comment on above: Order Comment: Order Date: 04/09/25Order Info: 0184-1 - CBCD Performed By: #### L 100.0100, L500.4050 ####[facility] [address] [place], [address] Eosinophils/100 WBC (Bld) 1.0 % Normal 0-5 [facility] Comment on above: Order Comment: Order Date: 04/09/25Order Info: 0184-1 - CBCD Performed By: #### L 100.0100, L500.4050 ####[facility] [address] [place], [address] Erythrocyte distribution width (RBC) [Ratio] 13.7 % Normal 11.6-14.6 [facility] Comment on above: Order Comment: Order Date: 04/09/25Order Info: 0184-1 - CBCD Performed By: #### L 100.0100, L500.4050 ####[facility] [address] [place], [address] Hematocrit (Bld) [Volume fraction] 44.8 % Normal 37-47 [facility] Comment on above: Order Comment: Order Date: 04/09/25Order Info: 0184-1 - CBCD Performed By: #### L 100.0100, L500.4050 ####[facility] [address] [place], [address] Hemoglobin (Bld) [Mass/Vol] 14.5 g/dL Normal 12.0-15.0 [facility] Comment on above: Order Comment: Order Date: 04/09/25Order Info: 0184-1 - CBCD Performed By: #### L 100.0100, L500.4050 ####[facility] [address] [place], [address] IG% 0.800 Normal 0.0-0.9 [facility] Comment on above: Order Comment: Order Date: 04/09/25Order Info: 0184-1 - CBCD Result Comment: IG% - Immature Granulocytes (promyelocytes, myelocytes andmetamyelocytes) > 1% indicates that a LEFT SHIFT is Present. Performed By: #### L 100.0100, L500.4050 ####[facility] [address] [place], [address] Lymphocytes/100 WBC (Bld) 13.0 % Low 19-41 [facility] Comment on above: Order Comment: Order Date: 04/09/25Order Info: 0184-1 - CBCD Performed By: #### L 100.0100, L500.4050 ####[facility] [address] [place], [address] MCH (RBC) [Entitic mass] 29.4 pg Normal 27.0-32.0 [facility] Comment on above: Order Comment: Order Date: 04/09/25Order Info: 0184-1 - CBCD Performed By: #### L 100.0100, L500.4050 ####[facility] [address] [place], [address] MCHC (RBC) [Mass/Vol] 32.4 g/dL Normal 32-36 [facility] Comment on above: Order Comment: Order Date: 04/09/25Order Info: 0184-1 - CBCD Performed By: #### L 100.0100, L500.4050 ####[facility] [address] [place], [address] MCV (RBC) [Entitic vol] 90.7 fL Normal 81-99 [facility] Comment on above: Order Comment: Order Date: 04/09/25Order Info: 0184-1 - CBCD Performed By: #### L 100.0100, L500.4050 ####[facility] [address] [place], [address] Monocytes/100 WBC (Bld) 9.1 % Normal 0-10 [facility] Comment on above: Order Comment: Order Date: 04/09/25Order Info: 0184-1 - CBCD Performed By: #### L 100.0100, L500.4050 ####[facility] [address] [place], [address] Neutrophils/100 WBC (Bld) 75.6 % High 47-70 [facility] Comment on above: Order Comment: Order Date: 04/09/25Order Info: 0184-1 - CBCD Performed By: #### L 100.0100, L500.4050 ####[facility] [address] [place], [address] Nucleated RBC (Bld) [#/Vol] 0 10*3/uL Normal 0-5 [facility] Comment on above: Order Comment: Order Date: 04/09/25Order Info: 0184-1 - CBCD Performed By: #### L 100.0100, L500.4050 ####[facility] [address] [place], [address] Platelet mean volume (Bld) [Entitic vol] 11.1 fL Normal 6.2-12.0 [facility] Comment on above: Order Comment: Order Date: 04/09/25Order Info: 0184-1 - CBCD Performed By: #### L 100.0100, L500.4050 ####[facility] [address] [place], [address] Platelets (Bld) [#/Vol] 261 10*3/uL Normal 150-450 [facility] Comment on above: Order Comment: Order Date: 04/09/25Order Info: 0184-1 - CBCD Performed By: #### L 100.0100, L500.4050 ####[facility] [address] [place], [address] RBC (Bld) [#/Vol] 4.94 10*6/uL Normal 4.2-5.4 [facility] Comment on above: Order Comment: Order Date: 04/09/25Order Info: 0184-1 - CBCD Performed By: #### L 100.0100, L500.4050 ####[facility] [address] [place], [address] RDW SD 45.5 fl High 35.1-43.9 [facility] Comment on above: Order Comment: Order Date: 04/09/25Order Info: 0184-1 - CBCD Performed By: #### L 100.0100, L500.4050 ####[facility] [address] [place], [address] WBC (Bld) [#/Vol] 11.0 10*3/uL Normal 4.4-11.0 [facility] Comment on above: Order Comment: Order Date: 04/09/25Order Info: 0184-1 - CBCD Performed By: #### L 100.0100, L500.4050 ####[facility] [address] [place], [address] Carbon dioxide, total [Moles /volume] in Central venous bloodOrdered By: Kamar Grimes on 04-09-2025 CO2 [Moles/Vol] 46.1 mmol/L Critically high 21.0-32.0 [facility] Chloride assayOrdered By: Jennifer Grimes on 04-09-2025 Chloride [Moles/Vol] 71 mmol/L Critically low 98-108 [facility] Comprehensive Metabolic Prof ilon 04-09-2025 Albumin [Mass/Vol] 4.1 g/dL Normal 3.4-4.8 [facility] Comment on above: Order Comment: Order Date: 04/09/25Order Info: 0786-1 - CMP Performed By: #### L 100.0100, L500.4050 ####[facility] [address] [place], [address] Albumin/Globulin [Mass ratio] 1.2 {ratio} Normal 0.9-2.4 [facility] Comment on above: Order Comment: Order Date: 04/09/25Order Info: 0786-1 - CMP Performed By: #### L 100.0100, L500.4050 ####[facility] [address] [place], [address] ALK PHOS 161 U/L High 35-104 [facility] Comment on above: Order Comment: Order Date: 04/09/25Order Info: 0786-1 - CMP Performed By: #### L 100.0100, L500.4050 ####[facility] [address] [place], [address] ALT [Catalytic activity/Vol] 25 U/L Normal <=34 [facility] Comment on above: Order Comment: Order Date: 04/09/25Order Info: 0786-1 - CMP Performed By: #### L 100.0100, L500.4050 ####[facility] [address] [place], [address] AST [Catalytic activity/Vol] 39 U/L High <=31 [facility] Comment on above: Order Comment: Order Date: 04/09/25Order Info: 0786-1 - CMP Performed By: #### L 100.0100, L500.4050 ####[facility] [address] [place], [address] Bilirubin [Mass/Vol] 0.47 mg/dL Normal 0.00-1.30 [facility] Comment on above: Order Comment: Order Date: 04/09/25Order Info: 0786-1 - CMP Performed By: #### L 100.0100, L500.4050 ####[facility] [address] [place], [address] BUN/CRE 29.4 RATIO High 10-20 [facility] Comment on above: Order Comment: Order Date: 04/09/25Order Info: 0786-1 - CMP Performed By: #### L 100.0100, L500.4050 ####[facility] [address] [place], [address] Calcium [Mass/Vol] 10.3 mg/dL Normal 7.6-11.0 [facility] Comment on above: Order Comment: Order Date: 04/09/25Order Info: 0786-1 - CMP Performed By: #### L 100.0100, L500.4050 ####[facility] [address] [place], [address] Chloride [Moles/Vol] 71 mmol/L Invalid Interpretation Code 98-108 [facility] Comment on above: Order Comment: Order Date: 04/09/25Order Info: 0786-1 - CMP Result Comment: Crit ical Result(s) Called at: 1932 by:??PIERRE GASPAR TO DR.PAUL MUNIZ Results read back by same. Performed By: #### L 100.0100, L500.4050 ####[facility] [address] [place], [address] CO2 [Moles/Vol] 46.1 mmol/L Invalid Interpretation Code 21.0-32.0 [facility] Comment on above: Order Comment: Order Date: 04/09/25Order Info: 0786-1 - CMP Result Comment: Crit ical Result(s) Called at: 1932 by: PIERRE GASPAR TO DR.PAUL COTE??Results read back by same. Performed By: #### L 100.0100, L500.4050 ####[facility] [address] [place], [address] Creatinine [Mass/Vol] 1.61 mg/dL High 0.70-1.20 [facility] Comment on above: Order Comment: Order Date: 04/09/25Order Info: 0786-1 - CMP Performed By: #### L 100.0100, L500.4050 ####[facility] [address] [place], [address] GAP 11 Normal 5-15 [facility] Comment on above: Order Comment: Order Date: 04/09/25Order Info: 0786-1 - CMP Performed By: #### L 100.0100, L500.4050 ####[facility] [address] [place], [address] GFR/1.73 sq M.predicted among non-blacks MDRD (S/P/Bld) [Vol rate/Area] 33 mL/min/{1.73_m2} Low >60 [facility] Comment on above: Order Comment: Order Date: 04/09/25Order Info: 0786-1 - CMP Result Comment: mL/m in/1.73m2 CKD-EPI Creatinine Equation (2020) Performed By: #### L 100.0100, L500.4050 ####[facility] [address] [place], [address] Globulin (S) [Mass/Vol] 3.4 g/dL Normal 2.2-4.2 [facility] Comment on above: Order Comment: Order Date: 04/09/25Order Info: 0786-1 - CMP Performed By: #### L 100.0100, L500.4050 ####[facility] [address] [place], [address] Glucose [Mass/Vol] 116 mg/dL High 70-99 [facility] Comment on above: Order Comment: Order Date: 04/09/25Order Info: 0786-1 - CMP Performed By: #### L 100.0100, L500.4050 ####[facility] [address] [place], [address] Potassium [Moles/Vol] 4.6 mmol/L Normal 3.3-5.1 [facility] Comment on above: Order Comment: Order Date: 04/09/25Order Info: 0786-1 - CMP Performed By: #### L 100.0100, L500.4050 ####[facility] [address] [place], [address] Sodium [Moles/Vol] 128 mmol/L Low 133-145 [facility] Comment on above: Order Comment: Order Date: 04/09/25Order Info: 0786-1 - CMP Performed By: #### L 100.0100, L500.4050 ####[facility] [address] [place], [place], [id number] T PROT 7.5 g/dL Normal 5.9-8.4 [facility] Comment on above: Order Comment: Order Date: 04/09/25Order Info: 0786-1 - CMP Performed By: #### L 100.0100, L500.4050 ####[facility] [address] [place], [address] Urea nitrogen [Mass/Vol] 47 mg/dL High 4-19 [facility] Comment on above: Order Comment: Order Date: 04/09/25Order Info: 0786-1 - CMP Performed By: #### L 100.0100, L500.4050 ####[facility] [address] [place], [address] Eosinophil percentageOrdered By: Kamar Grimes on 04-09-2025 Eosinophils/100 WBC (Bld) 1.0 % 0-5 [facility] Erythrocyte distribution wid th ratioOrdered By: Kamar Grimes on 04-09-2025 Erythrocyte distribution width (RBC) [Ratio] 13.7 % 11.6-14.6 [facility] Erythrocyte distribution wid th standard deviationOrdered By: Kamar Grimes on 04-09-2025 Erythrocyte distribution width (RBC) [Ratio] 45.5 fl High 35.1-43.9 [facility] Glomerular filtration rate ( GFR) estimation/1.73 sq m using serum, plasma, or whole bOrdered By: Kamar Grimes on 04-09-2025 GFR/1.73 sq M.predicted among non-blacks MDRD (S/P/Bld) [Vol rate/Area] 33 mL/min/{1.73_m2} Low >60 [facility] Hematocrit Auto (Bld) [Volum e fraction]Ordered By: Kamar Grimes on 04-09-2025 Hematocrit (Bld) [Volume fraction] 44.8 % 37-47 [facility] Hemoglobin measurementOrdere d By: Kamar Grimes on 04-09-2025 Hemoglobin (Bld) [Mass/Vol] 14.5 g/dL 12.0-15.0 [facility] Immature granulocytes/100 WB C Auto (Bld)Ordered By: Kamar Grimes on 04-09-2025 Immature granulocytes/100 WBC (Bld) 0.800 % 0.0-0.9 [facility] MCV (mean corpuscular volume ) determinationOrdered By: Kamar Grimes on 04-09-2025 MCV (RBC) [Entitic vol] 90.7 fL 81-99 [facility] Mean corpuscular hemoglobin (MCH) determinationOrdered By: Kamar Grimes on 04-09-2025 MCH (RBC) [Entitic mass] 29.4 pg 27.0-32.0 [facility] Monocyte percentageOrdered B y: Kamar Grimes on 04-09-2025 Monocytes/100 WBC (Bld) 9.1 % 0-10 [facility] Natriuretic peptide.B prohor mac N-Terminal [Mass/volume] in Serum or PlasmaOrdered By: Kamar Grimes on 04-09-2025 Natriuretic peptide.B prohormone N-Terminal [Mass/Vol] 198 pg/mL <1800 [facility] Neutrophil percentageOrdered By: Kamar Grimes on 04-09-2025 Neutrophils/100 WBC (Bld) 75.6 % High 47-70 [facility] No Panel InformationOrdered By: Kamar Grimes on 04-09-2025 39 U/L High <32 [facility] Platelet countOrdered By: Jennifer Grimes on 04-09-2025 Platelets (Bld) [#/Vol] 261 10*3/uL 150-450 [facility] Potassium measurement (mass/ volume)Ordered By: Kamar Grimes on 04-09-2025 Potassium (Unsp spec) [Mass/Vol] 4.6 mmol/L 3.3-5.1 [facility] Pro- Brain NATRIURETIC PEPTI Rita 04-09-2025 Natriuretic peptide B (Bld) [Mass/Vol] 198 pg/mL Normal <=1800 [facility] Comment on above: Order Comment: Order Date: 04/09/25Order Info: 0786-1 - CMP Result Comment: Hear t Failure Unlikely: < 300 pg/mLHeart Failure Likely< 50 Years: > 450 pg/mL50-75 Years: > 900 pg/mL>75 Years: > 1800 pg/mL Performed By: #### L 503.7505 ####[facility] [address] [place], [address] RBC Auto (Bld) [#/Vol]Ordere d By: Kamar Grimes on 04-09-2025 RBC (Bld) [#/Vol] 4.94 10*6/uL 4.2-5.4 [facility] Serum creatinine measurement (mass/volume)Ordered By: Kamar Grimes on 04-09-2025 Creatinine [Mass/Vol] 1.61 mg/dL High 0.70-1.20 [facility] Serum globulin measurementOr dered By: Kamar Grimes on 04-09-2025 Globulin (S) [Mass/Vol] 3.4 g/dL 2.2-4.2 [facility] Serum glucose measurement (m ass/volume)Ordered By: Kamar Grimes on 04-09-2025 Glucose [Mass/Vol] 116 mg/dL High 70-99 [facility] Serum or plasma alanine gao otransferase (ALT) measurementOrdered By: Kamar Grimes on 04-09-2025 ALT [Catalytic activity/Vol] 25 U/L <35 [facility] Serum or plasma albumin lisa urement (mass/volume)Ordered By: Kamar Grimes on 04-09-2025 Albumin [Mass/Vol] 4.1 g/dL 3.4-4.8 [facility] Serum or plasma albumin/glob ulin mass ratioOrdered By: Kamar Grimes on 04-09-2025 Albumin/Globulin [Mass ratio] 1.2 {ratio} 0.9-2.4 [facility] Serum or plasma alkaline bee sphatase measurementOrdered By: Kamar Grimes on 04-09-2025 ALP [Catalytic activity/Vol] 161 U/L High 35-104 [facility] Serum or plasma calcium lisa urement (mass/volume)Ordered By: Kamar Grimes on 04-09-2025 Calcium [Mass/Vol] 10.3 mg/dL 7.6-11.0 [facility] Serum or plasma urea nitroge n measurement (mass/volume)Ordered By: Kamar Grimes on 04-09-2025 Urea nitrogen [Mass/Vol] 47 mg/dL High 10-19 [facility] Sodium levelOrdered By: Kamar Grimes on 04-09-2025 Sodium [Moles/Vol] 128 mmol/L Low 133-145 [facility] Total proteinOrdered By: Esmer Grimes on 04-09-2025 Protein [Mass/Vol] 7.5 g/dL 5.9-8.4 [facility] White blood cell (WBC) count Ordered By: Kamar Grimes on 04-09-2025 WBC (Bld) [#/Vol] 11.0 10*3/uL 4.4-11.0 [facility] Basic Metabolic Profile (BMP )on 03-27-2025 BUN Normal - [facility] Comment on above: Result Comment: Canc elled via OM: Order cancelled - Patient discharged Performed By: #### L 100.0100, L500.2500 ####[facility] [address] [place], [address] BUN/CRE Normal 10- [facility] Comment on above: Result Comment: Canc elled via OM: Order cancelled - Patient discharged Performed By: #### L 100.0100, L500.2500 ####[facility] [address] [place], [address] Calcium Normal 7.6-11.0 [facility] Comment on above: Result Comment: Canc elled via OM: Order cancelled - Patient discharged Performed By: #### L 100.0100, L500.2500 ####[facility] [address] [place], [address] CL Normal 98-108 [facility] Comment on above: Result Comment: Canc elled via OM: Order cancelled - Patient discharged Performed By: #### L 100.0100, L500.2500 ####[facility] [address] [place], [address] CO2 Normal 21.0-32.0 [facility] Comment on above: Result Comment: Canc elled via OM: Order cancelled - Patient discharged Performed By: #### L 100.0100, L500.2500 ####[facility] [address] [place], [address] CREAT,SERUM Normal 0.70-1.20 [facility] Comment on above: Result Comment: Canc elled via OM: Order cancelled - Patient discharged Performed By: #### L 100.0100, L500.2500 ####[facility] [address] [place], [address] eGFR Normal >60 [facility] Comment on above: Result Comment: Canc elled via OM: Order cancelled - Patient discharged Performed By: #### L 100.0100, L500.2500 ####[facility] [address] [place], [address] GAP Normal 5-15 [facility] Comment on above: Result Comment: Canc elled via OM: Order cancelled - Patient discharged Performed By: #### L 100.0100, L500.2500 ####[facility] [address] [place], [address] GLU Normal 70-99 [facility] Comment on above: Result Comment: Canc elled via OM: Order cancelled - Patient discharged Performed By: #### L 100.0100, L500.2500 ####[facility] [address] [place], [address] Potassium Normal 3.3-5.1 [facility] Comment on above: Result Comment: Canc elled via OM: Order cancelled - Patient discharged Performed By: #### L 100.0100, L500.2500 ####[facility] [address] [place], [address] Basic Metabolic Profile (BMP) Normal 133-145 [facility] Comment on above: Result Comment: Canc elled via OM: Order cancelled - Patient discharged Performed By: #### L 100.0100, L500.2500 ####[facility] [address] [place], [address] CBC W/Diff, Automatedon 09-2 -2024 Absolute Neut Normal 2.0-7.7 [facility] Comment on above: Result Comment: Canc elled via OM: Order cancelled - Patient discharged Performed By: #### L 100.0100, L500.2500 ####[facility] [address] [place], [address] HCT Normal 37-47 [facility] Comment on above: Result Comment: Canc elled via OM: Order cancelled - Patient discharged Performed By: #### L 100.0100, L500.2500 ####[facility] [address] [place], [address] HGB Normal 12.0-15.0 [facility] Comment on above: Result Comment: Canc elled via OM: Order cancelled - Patient discharged Performed By: #### L 100.0100, L500.2500 ####[facility] [address] [place], [address] MCH Normal 27.0-32.0 [facility] Comment on above: Result Comment: Canc elled via OM: Order cancelled - Patient discharged Performed By: #### L 100.0100, L500.2500 ####[facility] [address] [place], [address] MCHC Normal 32-36 [facility] Comment on above: Result Comment: Canc elled via OM: Order cancelled - Patient discharged Performed By: #### L 100.0100, L500.2500 ####[facility] [address] [place], [address] MCV Normal 81-99 [facility] Comment on above: Result Comment: Canc elled via OM: Order cancelled - Patient discharged Performed By: #### L 100.0100, L500.2500 ####[facility] [address] [place], [address] NEUT% Normal 47-70 [facility] Comment on above: Result Comment: Canc elled via OM: Order cancelled - Patient discharged Performed By: #### L 100.0100, L500.2500 ####[facility] [address] [place], [address] PLT Normal 150-450 [facility] Comment on above: Result Comment: Canc elled via OM: Order cancelled - Patient discharged Performed By: #### L 100.0100, L500.2500 ####[facility] [address] [place], [address] RBC Normal 4.2-5.4 [facility] Comment on above: Result Comment: Canc elled via OM: Order cancelled - Patient discharged Performed By: #### L 100.0100, L500.2500 ####[facility] [address] [place], [address] RDW CV Normal 11.6-14.6 [facility] Comment on above: Result Comment: Canc elled via OM: Order cancelled - Patient discharged Performed By: #### L 100.0100, L500.2500 ####[facility] [address] [place], [address] RDW SD Normal 35.1-43.9 [facility] Comment on above: Result Comment: Canc elled via OM: Order cancelled - Patient discharged Performed By: #### L 100.0100, L500.2500 ####[facility] [address] [place], [address] WBC Normal 4.4-11.0 [facility] Comment on above: Result Comment: Canc elled via OM: Order cancelled - Patient discharged Performed By: #### L 100.0100, L500.2500 ####[facility] [address] [place], [address] Absolute lymphocyte countOrd ered By: Otilia Gosscristofer on 03-26-2025 Lymphocytes Auto (Unsp spec) [#/Vol] 0.81 10*3/uL Low 0.83-4.51 [facility] Anion gap in Serum or Plasma Ordered By: Otiliashanon Hernandez on 03-26-2025 Anion gap [Moles/Vol] 7 mmol/L 5-15 [facility] Automated blood erythrocyte countOrdered By: Otiliashanon Hernandez on 03-26-2025 RBC (Bld) [#/Vol] 3.78 10*6/uL Low 4.2-5.4 [facility] Comment on above: Performed By: #### L 500.2500, L100.0100 ####[facility] [address] [place], [address] Automated blood hematocrit ( percentage)Ordered By: Otiliashanon Hernandez on 03-26-2025 Hematocrit (Bld) [Volume fraction] 35.8 % Low 37-47 [facility] Comment on above: Performed By: #### L 500.2500, L100.0100 ####[facility] [address] [place], [address] Automated lymphocyte count a s percentage of total leukocytesOrdered By: Otiliashanon Hernandez on 03-26-2025 Lymphocytes/100 WBC Auto (Unsp spec) 9.6 % Low 19-41 [facility] BUN/creatinine ratioOrdered By: Otiliashanon Hernandez on 03-26-2025 Urea nitrogen/Creatinine [Mass ratio] 26.4 mg/mg High 10-20 [facility] Basic Metabolic Profile (BMP )on 03-26-2025 BUN/CRE 26.4 RATIO High - [facility] Comment on above: Performed By: #### L 500.2500, L100.0100 ####[facility] [address] [place], [address] ECRCL 79.11 ml/min Normal 50-250 [facility] Comment on above: Performed By: #### L 500.2500, L100.0100 ####[facility] [address] [place], [address] GAP 7 Normal 5-15 [facility] Comment on above: Performed By: #### L 500.2500, L100.0100 ####[facility] [address] [place], [address] Potassium [Moles/Vol] 3.9 mmol/L Normal 3.3-5.1 [facility] Comment on above: Performed By: #### L 500.2500, L100.0100 ####[facility] [address] [place], [address] Basophil percentageOrdered B y: Otilia Hernandez on 03-26-2025 Basophils/100 WBC (Bld) 0.2 % Normal 0-1 [facility] Comment on above: Performed By: #### L 500.2500, L100.0100 ####[facility] [address] [place], [address] CBC W/Diff, Automatedon 03-04 Absolute Lymph 0.81 X10 3/uL Low 0.83-4.51 [facility] Comment on above: Performed By: #### L 500.2500, L100.0100 ####[facility] [address] [place], [address] Absolute Neut 6.6 X10 3/uL Normal 2.0-7.7 [facility] Comment on above: Performed By: #### L 500.2500, L100.0100 ####[facility] [address] [place], [address] IG% 0.600 Normal 0.0-0.9 [facility] Comment on above: Result Comment: IG% - Immature Granulocytes (promyelocytes, myelocytes andmetamyelocytes) > 1% indicates that a LEFT SHIFT is Present. Performed By: #### L 500.2500, L100.0100 ####[facility] [address] [place], [address] Lymphocytes/100 WBC (Bld) 9.6 % Low 19-41 [facility] Comment on above: Performed By: #### L 500.2500, L100.0100 ####[facility] [address] [place], [address] MCHC (RBC) [Mass/Vol] 31.0 g/dL Low 32-36 [facility] Comment on above: Performed By: #### L 500.2500, L100.0100 ####[facility] [address] [place], [address] Nucleated RBC (Bld) [#/Vol] 0 10*3/uL Normal 0-5 [facility] Comment on above: Performed By: #### L 500.2500, L100.0100 ####[facility] [address] [place], [address] Platelet mean volume (Bld) [Entitic vol] 9.7 fL Normal 6.2-12.0 [facility] Comment on above: Performed By: #### L 500.2500, L100.0100 ####[facility] [address] [place], [address] RDW SD 48.9 fl High 35.1-43.9 [facility] Comment on above: Performed By: #### L 500.2500, L100.0100 ####[facility] [address] [place], [address] Carbon dioxide, total [Moles /volume] in Central venous bloodOrdered By: Otilia Hernandez on 03-26-2025 CO2 [Moles/Vol] 38.2 mmol/L High 21.0-32.0 [facility] Comment on above: Performed By: #### L 500.2500, L100.0100 ####[facility] [address] [place], [address] Chloride assayOrdered By: Emelina Hernandez on 03-26-2025 Chloride [Moles/Vol] 94 mmol/L Low 98-108 [facility] Comment on above: Performed By: #### L 500.2500, L100.0100 ####[facility] [address] [place], [address] Eosinophil percentageOrdered By: Otilia Hernandez on 03-26-2025 Eosinophils/100 WBC (Bld) 1.5 % Normal 0-5 [facility] Comment on above: Performed By: #### L 500.2500, L100.0100 ####[facility] [address] [place], [address] Erythrocyte distribution wid th ratioOrdered By: Otilia Hernandez on 03-26-2025 Erythrocyte distribution width (RBC) [Ratio] 14.1 % Normal 11.6-14.6 [facility] Comment on above: Performed By: #### L 500.2500, L100.0100 ####[facility] [address] [place], [address] Erythrocyte distribution wid th standard deviationOrdered By: Otilia Hernandez on 03-26-2025 Erythrocyte distribution width (RBC) [Ratio] 48.9 fl High 35.1-43.9 [facility] Glomerular filtration rate ( GFR) estimation/1.73 sq m using serum, plasma, or whole bOrdered By: Otilia Hernandez on 03-26-2025 GFR/1.73 sq M.predicted among non-blacks MDRD (S/P/Bld) [Vol rate/Area] 90 mL/min/{1.73_m2} Normal >60 [facility] Comment on above: Result Comment: mL/m in/1.73m2 CKD-EPI Creatinine Equation (2020) Performed By: #### L 500.2500, L100.0100 ####[facility] [address] [place], [address] Hemoglobin measurementOrdere d By: Otilia Gosscristofer on 03-26-2025 Hemoglobin (Bld) [Mass/Vol] 11.1 g/dL Low 12.0-15.0 [facility] Comment on above: Performed By: #### L 500.2500, L100.0100 ####[facility] [address] [place], [address] Immature granulocytes/100 WB C Auto (Bld)Ordered By: Otiliashanon Hernandez on 03-26-2025 Immature granulocytes/100 WBC (Bld) 0.600 % 0.0-0.9 [facility] MCV (mean corpuscular volume ) determinationOrdered By: Otilia Hernandez on 03-26-2025 MCV (RBC) [Entitic vol] 94.7 fL Normal 81-99 [facility] Comment on above: Performed By: #### L 500.2500, L100.0100 ####[facility] [address] [place], [address] Mean corpuscular hemoglobin (MCH) determinationOrdered By: Otiliashanon Hernandez on 03-26-2025 MCH (RBC) [Entitic mass] 29.4 pg Normal 27.0-32.0 [facility] Comment on above: Performed By: #### L 500.2500, L100.0100 ####[facility] [address] [place], [address] Monocyte percentageOrdered B y: Otilia Hernandez on 03-26-2025 Monocytes/100 WBC (Bld) 10.1 % High 0-10 [facility] Comment on above: Performed By: #### L 500.2500, L100.0100 ####[facility] [address] [place], [address] Neutrophil percentageOrdered By: Otilia Hernandez on 03-26-2025 Neutrophils/100 WBC (Bld) 78.0 % High 47-70 [facility] Comment on above: Performed By: #### L 500.2500, L100.0100 ####[facility] [address] [place], [address] Platelet countOrdered By: Emelina devine David on 03-26-2025 Platelets (Bld) [#/Vol] 169 10*3/uL Normal 150-450 [facility] Comment on above: Performed By: #### L 500.2500, L100.0100 ####[facility] [address] [place], [address] Potassium measurement (mass/ volume)Ordered By: Otiliashanon Hernandez on 03-26-2025 Potassium (Unsp spec) [Mass/Vol] 3.9 mmol/L 3.3-5.1 [facility] Serum creatinine measurement (mass/volume)Ordered By: Otilia Hernandez on 03-26-2025 Creatinine [Mass/Vol] 0.68 mg/dL Low 0.70-1.20 [facility] Comment on above: Performed By: #### L 500.2500, L100.0100 ####[facility] [address] [place], [address] Serum glucose measurement (m ass/volume)Ordered By: Otiliashanon Hernandez on 03-26-2025 Glucose [Mass/Vol] 98 mg/dL Normal 70-99 [facility] Comment on above: Performed By: #### L 500.2500, L100.0100 ####[facility] [address] [place], [address] Serum or plasma calcium lisa urement (mass/volume)Ordered By: Otiliashanon Hernandez on 03-26-2025 Calcium [Mass/Vol] 8.7 mg/dL Normal 7.6-11.0 [facility] Comment on above: Performed By: #### L 500.2500, L100.0100 ####[facility] [address] [place], [address] Serum or plasma urea nitroge n measurement (mass/volume)Ordered By: Otilia Hernandez on 03-26-2025 Urea nitrogen [Mass/Vol] 18 mg/dL Normal 4-19 [facility] Comment on above: Performed By: #### L 500.2500, L100.0100 ####[facility] [address] [place], [address] Sodium levelOrdered By: Otilia Hernandez on 03-26-2025 Sodium [Moles/Vol] 139 mmol/L Normal 133-145 [facility] Comment on above: Performed By: #### L 500.2500, L100.0100 ####[facility] [address] [place], [address] White blood cell (WBC) count Ordered By: Otilia Hernandez on 03-26-2025 WBC (Bld) [#/Vol] 8.5 10*3/uL Normal 4.4-11.0 [facility] Comment on above: Performed By: #### L 500.2500, L100.0100 ####[facility] [address] [place], [address] Basic Metabolic Profile (BMP )on 03-25-2025 BUN/CRE 27.9 RATIO High 10-20 [facility] Comment on above: Performed By: #### L 500.2500, L100.0100 ####[facility] [address] [place], [address] Calcium [Mass/Vol] 8.8 mg/dL Normal 7.6-11.0 [facility] Comment on above: Performed By: #### L 500.2500, L100.0100 ####[facility] [address] [place], [address] Chloride [Moles/Vol] 99 mmol/L Normal 98-108 [facility] Comment on above: Performed By: #### L 500.2500, L100.0100 ####[facility] [address] [place], [address] CO2 [Moles/Vol] 35.9 mmol/L High 21.0-32.0 [facility] Comment on above: Performed By: #### L 500.2500, L100.0100 ####[facility] [address] [place], [address] Creatinine [Mass/Vol] 0.72 mg/dL Normal 0.70-1.20 [facility] Comment on above: Performed By: #### L 500.2500, L100.0100 ####[facility] [address] [place], [address] ECRCL 80.24 ml/min Normal 50-250 [facility] Comment on above: Performed By: #### L 500.2500, L100.0100 ####[facility] [address] [place], [address] GAP 5 Normal 5-15 [facility] Comment on above: Performed By: #### L 500.2500, L100.0100 ####[facility] [address] [place], [address] GFR/1.73 sq M.predicted among non-blacks MDRD (S/P/Bld) [Vol rate/Area] 86 mL/min/{1.73_m2} Normal >60 [facility] Comment on above: Result Comment: mL/m in/1.73m2 CKD-EPI Creatinine Equation (2020) Performed By: #### L 500.2500, L100.0100 ####[facility] [address] [place], [address] Glucose [Mass/Vol] 105 mg/dL High 70-99 [facility] Comment on above: Performed By: #### L 500.2500, L100.0100 ####[facility] [address] [place], [address] Potassium [Moles/Vol] 4.5 mmol/L Normal 3.3-5.1 [facility] Comment on above: Performed By: #### L 500.2500, L100.0100 ####[facility] [address] [place], [address] Sodium [Moles/Vol] 140 mmol/L Normal 133-145 [facility] Comment on above: Performed By: #### L 500.2500, L100.0100 ####[facility] [address] [place], [address] Urea nitrogen [Mass/Vol] 20 mg/dL High 4-19 [facility] Comment on above: Performed By: #### L 500.2500, L100.0100 ####[facility] [address] [place], [address] CBC W/Diff, Automatedon 03-04-2024 Absolute Lymph 0.86 X10 3/uL Normal 0.83-4.51 [facility] Comment on above: Performed By: #### L 500.2500, L100.0100 ####[facility] [address] [place], [address] Absolute Neut 7.2 X10 3/uL Normal 2.0-7.7 [facility] Comment on above: Performed By: #### L 500.2500, L100.0100 ####[facility] [address] [place], [address] Basophils/100 WBC (Bld) 0.2 % Normal 0-1 [facility] Comment on above: Performed By: #### L 500.2500, L100.0100 ####[facility] [address] [place], [address] Eosinophils/100 WBC (Bld) 1.4 % Normal 0-5 [facility] Comment on above: Performed By: #### L 500.2500, L100.0100 ####[facility] [address] [place], [address] Erythrocyte distribution width (RBC) [Ratio] 14.6 % Normal 11.6-14.6 [facility] Comment on above: Performed By: #### L 500.2500, L100.0100 ####[facility] [address] [place], [address] Hematocrit (Bld) [Volume fraction] 36.8 % Low 37-47 [facility] Comment on above: Performed By: #### L 500.2500, L100.0100 ####[facility] [address] [place], [address] Hemoglobin (Bld) [Mass/Vol] 11.3 g/dL Low 12.0-15.0 [facility] Comment on above: Performed By: #### L 500.2500, L100.0100 ####[facility] [address] [place], [address] IG% 0.500 Normal 0.0-0.9 [facility] Comment on above: Result Comment: IG% - Immature Granulocytes (promyelocytes, myelocytes andmetamyelocytes) > 1% indicates that a LEFT SHIFT is Present. Performed By: #### L 500.2500, L100.0100 ####[facility] [address] [place], [address] Lymphocytes/100 WBC (Bld) 9.4 % Low 19-41 [facility] Comment on above: Performed By: #### L 500.2500, L100.0100 ####[facility] [address] [place], [address] MCH (RBC) [Entitic mass] 30.2 pg Normal 27.0-32.0 [facility] Comment on above: Performed By: #### L 500.2500, L100.0100 ####[facility] [address] [place], [address] MCHC (RBC) [Mass/Vol] 30.7 g/dL Low 32-36 [facility] Comment on above: Performed By: #### L 500.2500, L100.0100 ####[facility] [address] [place], [address] MCV (RBC) [Entitic vol] 98.4 fL Normal 81-99 [facility] Comment on above: Performed By: #### L 500.2500, L100.0100 ####[facility] [address] [place], [address] Monocytes/100 WBC (Bld) 9.3 % Normal 0-10 [facility] Comment on above: Performed By: #### L 500.2500, L100.0100 ####[facility] [address] [place], [address] Neutrophils/100 WBC (Bld) 79.2 % High 47-70 [facility] Comment on above: Performed By: #### L 500.2500, L100.0100 ####[facility] [address] [place], [address] Nucleated RBC (Bld) [#/Vol] 0 10*3/uL Normal 0-5 [facility] Comment on above: Performed By: #### L 500.2500, L100.0100 ####[facility] [address] [place], [address] Platelet mean volume (Bld) [Entitic vol] 10.1 fL Normal 6.2-12.0 [facility] Comment on above: Performed By: #### L 500.2500, L100.0100 ####[facility] [address] [place], [address] Platelets (Bld) [#/Vol] 143 10*3/uL Low 150-450 [facility] Comment on above: Performed By: #### L 500.2500, L100.0100 ####[facility] [address] [place], [address] RBC (Bld) [#/Vol] 3.74 10*6/uL Low 4.2-5.4 [facility] Comment on above: Performed By: #### L 500.2500, L100.0100 ####[facility] [address] [place], [address] RDW SD 52.7 fl High 35.1-43.9 [facility] Comment on above: Performed By: #### L 500.2500, L100.0100 ####[facility] [address] [place], [address] WBC (Bld) [#/Vol] 9.1 10*3/uL Normal 4.4-11.0 [facility] Comment on above: Performed By: #### L 500.2500, L100.0100 ####[facility] [address] [place], [address] Basic Metabolic Profile (BMP )on 03-24-2025 BUN/CRE 37.2 RATIO High 10-20 [facility] Comment on above: Performed By: #### L 100.0100, L500.2500 ####[facility] [address] [place], [address] Calcium [Mass/Vol] 8.9 mg/dL Normal 7.6-11.0 [facility] Comment on above: Performed By: #### L 100.0100, L500.2500 ####[facility] [address] [place], [address] Chloride [Moles/Vol] 101 mmol/L Normal 98-108 [facility] Comment on above: Performed By: #### L 100.0100, L500.2500 ####[facility] [address] [place], [address] CO2 [Moles/Vol] 32.9 mmol/L High 21.0-32.0 [facility] Comment on above: Performed By: #### L 100.0100, L500.2500 ####[facility] [address] [place], [address] Creatinine [Mass/Vol] 0.83 mg/dL Normal 0.70-1.20 [facility] Comment on above: Performed By: #### L 100.0100, L500.2500 ####[facility] [address] [place], [address] ECRCL 77.67 ml/min Normal 50-250 [facility] Comment on above: Performed By: #### L 100.0100, L500.2500 ####[facility] [address] [place], [address] GAP 7 Normal 5-15 [facility] Comment on above: Performed By: #### L 100.0100, L500.2500 ####[facility] [address] [place], [address] GFR/1.73 sq M.predicted among non-blacks MDRD (S/P/Bld) [Vol rate/Area] 73 mL/min/{1.73_m2} Normal >60 [facility] Comment on above: Result Comment: mL/m in/1.73m2 CKD-EPI Creatinine Equation (2020) Performed By: #### L 100.0100, L500.2500 ####[facility] [address] [place], [address] Glucose [Mass/Vol] 109 mg/dL High 70-99 [facility] Comment on above: Performed By: #### L 100.0100, L500.2500 ####[facility] [address] [place], [address] Potassium [Moles/Vol] 4.3 mmol/L Normal 3.3-5.1 [facility] Comment on above: Performed By: #### L 100.0100, L500.2500 ####[facility] [address] [place], [address] Sodium [Moles/Vol] 141 mmol/L Normal 133-145 [facility] Comment on above: Performed By: #### L 100.0100, L500.2500 ####[facility] [address] [place], [address] Urea nitrogen [Mass/Vol] 31 mg/dL High 4-19 [facility] Comment on above: Performed By: #### L 100.0100, L500.2500 ####[facility] [address] [place], [address] CBC W/Diff, Automatedon 03-04-2024 Absolute Lymph 1.03 X10 3/uL Normal 0.83-4.51 [facility] Comment on above: Performed By: #### L 100.0100, L500.2500 ####[facility] [address] [place], [address] Absolute Neut 8.0 X10 3/uL High 2.0-7.7 [facility] Comment on above: Performed By: #### L 100.0100, L500.2500 ####[facility] [address] [place], [address] Basophils/100 WBC (Bld) 0.2 % Normal 0-1 [facility] Comment on above: Performed By: #### L 100.0100, L500.2500 ####[facility] [address] [place], [address] Eosinophils/100 WBC (Bld) 2.0 % Normal 0-5 [facility] Comment on above: Performed By: #### L 100.0100, L500.2500 ####[facility] [address] [place], [address] Erythrocyte distribution width (RBC) [Ratio] 15.1 % High 11.6-14.6 [facility] Comment on above: Performed By: #### L 100.0100, L500.2500 ####[facility] [address] [place], [address] Hematocrit (Bld) [Volume fraction] 38.0 % Normal 37-47 [facility] Comment on above: Performed By: #### L 100.0100, L500.2500 ####[facility] [address] [place], [address] Hemoglobin (Bld) [Mass/Vol] 11.5 g/dL Low 12.0-15.0 [facility] Comment on above: Performed By: #### L 100.0100, L500.2500 ####[facility] [address] [place], [address] IG% 0.500 Normal 0.0-0.9 [facility] Comment on above: Result Comment: IG% - Immature Granulocytes (promyelocytes, myelocytes andmetamyelocytes) > 1% indicates that a LEFT SHIFT is Present. Performed By: #### L 100.0100, L500.2500 ####[facility] [address] [place], [address] Lymphocytes/100 WBC (Bld) 9.8 % Low 19-41 [facility] Comment on above: Performed By: #### L 100.0100, L500.2500 ####[facility] [address] [place], [address] MCH (RBC) [Entitic mass] 29.9 pg Normal 27.0-32.0 [facility] Comment on above: Performed By: #### L 100.0100, L500.2500 ####[facility] [address] [place], [address] MCHC (RBC) [Mass/Vol] 30.3 g/dL Low 32-36 [facility] Comment on above: Performed By: #### L 100.0100, L500.2500 ####[facility] [address] [place], [address] MCV (RBC) [Entitic vol] 98.7 fL Normal 81-99 [facility] Comment on above: Performed By: #### L 100.0100, L500.2500 ####[facility] [address] [place], [address] Monocytes/100 WBC (Bld) 12.2 % High 0-10 [facility] Comment on above: Performed By: #### L 100.0100, L500.2500 ####[facility] [address] [place], [address] Neutrophils/100 WBC (Bld) 75.3 % High 47-70 [facility] Comment on above: Performed By: #### L 100.0100, L500.2500 ####[facility] [address] [place], [address] Nucleated RBC (Bld) [#/Vol] 0 10*3/uL Normal 0-5 [facility] Comment on above: Performed By: #### L 100.0100, L500.2500 ####[facility] [address] [place], [address] Platelet mean volume (Bld) [Entitic vol] 10.3 fL Normal 6.2-12.0 [facility] Comment on above: Performed By: #### L 100.0100, L500.2500 ####[facility] [address] [place], [address] Platelets (Bld) [#/Vol] 152 10*3/uL Normal 150-450 [facility] Comment on above: Performed By: #### L 100.0100, L500.2500 ####[facility] [address] [place], [address] RBC (Bld) [#/Vol] 3.85 10*6/uL Low 4.2-5.4 [facility] Comment on above: Performed By: #### L 100.0100, L500.2500 ####[facility] [address] [place], [address] RDW SD 54.4 fl High 35.1-43.9 [facility] Comment on above: Performed By: #### L 100.0100, L500.2500 ####[facility] [address] [place], [address] WBC (Bld) [#/Vol] 10.6 10*3/uL Normal 4.4-11.0 [facility] Comment on above: Performed By: #### L 100.0100, L500.2500 ####[facility] [address] [place], [address] Basic Metabolic Profile (BMP )on 03-23-2025 BUN/CRE 33.2 RATIO High 10-20 [facility] Comment on above: Performed By: #### L 100.0100, L500.2500 ####[facility] [address] [place], [address] Calcium [Mass/Vol] 8.6 mg/dL Normal 7.6-11.0 [facility] Comment on above: Performed By: #### L 100.0100, L500.2500 ####[facility] [address] [place], [address] Chloride [Moles/Vol] 105 mmol/L Normal 98-108 [facility] Comment on above: Performed By: #### L 100.0100, L500.2500 ####[facility] [address] [place], [address] CO2 [Moles/Vol] 32.2 mmol/L High 21.0-32.0 [facility] Comment on above: Performed By: #### L 100.0100, L500.2500 ####[facility] [address] [place], [address] Creatinine [Mass/Vol] 1.21 mg/dL High 0.70-1.20 [facility] Comment on above: Performed By: #### L 100.0100, L500.2500 ####[facility] [address] [place], [address] ECRCL 53.50 ml/min Normal 50-250 [facility] Comment on above: Performed By: #### L 100.0100, L500.2500 ####[facility] [address] [place], [address] GAP 9 Normal 5-15 [facility] Comment on above: Performed By: #### L 100.0100, L500.2500 ####[facility] [address] [place], [address] GFR/1.73 sq M.predicted among non-blacks MDRD (S/P/Bld) [Vol rate/Area] 46 mL/min/{1.73_m2} Low >60 [facility] Comment on above: Result Comment: mL/m in/1.73m2 CKD-EPI Creatinine Equation (2020) Performed By: #### L 100.0100, L500.2500 ####[facility] [address] [place], [address] Glucose [Mass/Vol] 90 mg/dL Normal 70-99 [facility] Comment on above: Performed By: #### L 100.0100, L500.2500 ####[facility] [address] [place], [address] Potassium [Moles/Vol] 4.0 mmol/L Normal 3.3-5.1 [facility] Comment on above: Result Comment: Hemo lysis present, Results??could be affected.?? Performed By: #### L 100.0100, L500.2500 ####[facility] [address] [place], [address] Sodium [Moles/Vol] 147 mmol/L High 133-145 [facility] Comment on above: Performed By: #### L 100.0100, L500.2500 ####[facility] [address] [place], [address] Urea nitrogen [Mass/Vol] 40 mg/dL High 4-19 [facility] Comment on above: Performed By: #### L 100.0100, L500.2500 ####[facility] [address] [place], [address] Bedside Glucoseon 03-23-2024 FINGERSTICK GLU 118 mg/dL High 74-106 [facility] Comment on above: Result Comment: ROSA ISELA BUSTAMANTE OF PATIENT CARE PER NURSING PROTOCOL Performed By: #### L 501.080 ####[facility] [address] [place], [address] CBC W/Diff, Automatedon 03-04 Absolute Lymph 1.83 X10 3/uL Normal 0.83-4.51 [facility] Comment on above: Performed By: #### L 100.0100, L500.2500 ####[facility] [address] [place], [address] Absolute Neut 8.5 X10 3/uL High 2.0-7.7 [facility] Comment on above: Performed By: #### L 100.0100, L500.2500 ####[facility] [address] [place], [address] Basophils/100 WBC (Bld) 0.2 % Normal 0-1 [facility] Comment on above: Performed By: #### L 100.0100, L500.2500 ####[facility] [address] [place], [address] Eosinophils/100 WBC (Bld) 1.6 % Normal 0-5 [facility] Comment on above: Performed By: #### L 100.0100, L500.2500 ####[facility] [address] [place], [address] Erythrocyte distribution width (RBC) [Ratio] 15.1 % High 11.6-14.6 [facility] Comment on above: Performed By: #### L 100.0100, L500.2500 ####[facility] [address] [place], [address] Hematocrit (Bld) [Volume fraction] 37.5 % Normal 37-47 [facility] Comment on above: Performed By: #### L 100.0100, L500.2500 ####[facility] [address] [place], [address] Hemoglobin (Bld) [Mass/Vol] 11.5 g/dL Low 12.0-15.0 [facility] Comment on above: Performed By: #### L 100.0100, L500.2500 ####[facility] [address] [place], [address] IG% 0.500 Normal 0.0-0.9 [facility] Comment on above: Result Comment: IG% - Immature Granulocytes (promyelocytes, myelocytes andmetamyelocytes) > 1% indicates that a LEFT SHIFT is Present. Performed By: #### L 100.0100, L500.2500 ####[facility] [address] [place], [address] Lymphocytes/100 WBC (Bld) 15.5 % Low 19-41 [facility] Comment on above: Performed By: #### L 100.0100, L500.2500 ####[facility] [address] [place], [address] MCH (RBC) [Entitic mass] 29.6 pg Normal 27.0-32.0 [facility] Comment on above: Performed By: #### L 100.0100, L500.2500 ####[facility] [address] [place], [address] MCHC (RBC) [Mass/Vol] 30.7 g/dL Low 32-36 [facility] Comment on above: Performed By: #### L 100.0100, L500.2500 ####[facility] [address] [place], [address] MCV (RBC) [Entitic vol] 96.6 fL Normal 81-99 [facility] Comment on above: Performed By: #### L 100.0100, L500.2500 ####[facility] [address] [place], [address] Monocytes/100 WBC (Bld) 9.8 % Normal 0-10 [facility] Comment on above: Performed By: #### L 100.0100, L500.2500 ####[facility] [address] [place], [address] Neutrophils/100 WBC (Bld) 72.4 % High 47-70 [facility] Comment on above: Performed By: #### L 100.0100, L500.2500 ####[facility] [address] [place], [address] Nucleated RBC (Bld) [#/Vol] 0 10*3/uL Normal 0-5 [facility] Comment on above: Performed By: #### L 100.0100, L500.2500 ####[facility] [address] [place], [address] Platelet mean volume (Bld) [Entitic vol] 10.6 fL Normal 6.2-12.0 [facility] Comment on above: Performed By: #### L 100.0100, L500.2500 ####[facility] [address] [place], [address] Platelets (Bld) [#/Vol] 153 10*3/uL Normal 150-450 [facility] Comment on above: Performed By: #### L 100.0100, L500.2500 ####[facility] [address] [place], [address] RBC (Bld) [#/Vol] 3.88 10*6/uL Low 4.2-5.4 [facility] Comment on above: Performed By: #### L 100.0100, L500.2500 ####[facility] [address] [place], [address] RDW SD 53.0 fl High 35.1-43.9 [facility] Comment on above: Performed By: #### L 100.0100, L500.2500 ####[facility] [address] [place], [address] WBC (Bld) [#/Vol] 11.8 10*3/uL High 4.4-11.0 [facility] Comment on above: Performed By: #### L 100.0100, L500.2500 ####[facility] [address] [place], [address] Culture, Blood (WB)on 2024 CUB Blood cultures x2, f rom two different sites No growth in 5 days. Normal [facility] Comment on above: Performed By: #### L 300.3900, L300.4310, L503.6005, M200.1000 ####[facility] [address] [place], [address] Basic Metabolic Profile (BMP )on 03-22-2025 BUN/CRE 37.1 RATIO High 10-20 [facility] Comment on above: Performed By: #### L 100.0100, L500.2500 ####[facility] [address] [place], [address] Calcium [Mass/Vol] 8.6 mg/dL Normal 7.6-11.0 [facility] Comment on above: Performed By: #### L 100.0100, L500.2500 ####[facility] [address] [place], [address] Chloride [Moles/Vol] 103 mmol/L Normal 98-108 [facility] Comment on above: Performed By: #### L 100.0100, L500.2500 ####[facility] [address] [place], [address] CO2 [Moles/Vol] 32.5 mmol/L High 21.0-32.0 [facility] Comment on above: Performed By: #### L 100.0100, L500.2500 ####[facility] [address] [place], [address] Creatinine [Mass/Vol] 1.10 mg/dL Normal 0.70-1.20 [facility] Comment on above: Performed By: #### L 100.0100, L500.2500 ####[facility] [address] [place], [address] ECRCL 56.98 ml/min Normal 50-250 [facility] Comment on above: Performed By: #### L 100.0100, L500.2500 ####[facility] [address] [place], [address] GAP 7 Normal 5-15 [facility] Comment on above: Performed By: #### L 100.0100, L500.2500 ####[facility] [address] [place], [address] GFR/1.73 sq M.predicted among non-blacks MDRD (S/P/Bld) [Vol rate/Area] 52 mL/min/{1.73_m2} Low >60 [facility] Comment on above: Result Comment: mL/m in/1.73m2 CKD-EPI Creatinine Equation (2020) Performed By: #### L 100.0100, L500.2500 ####[facility] [address] [place], [address] Glucose [Mass/Vol] 122 mg/dL High 70-99 [facility] Comment on above: Performed By: #### L 100.0100, L500.2500 ####[facility] [address] [place], [address] Potassium [Moles/Vol] 3.6 mmol/L Normal 3.3-5.1 [facility] Comment on above: Performed By: #### L 100.0100, L500.2500 ####[facility] [address] [place], [address] Sodium [Moles/Vol] 142 mmol/L Normal 133-145 [facility] Comment on above: Performed By: #### L 100.0100, L500.2500 ####[facility] [address] [place], [address] Urea nitrogen [Mass/Vol] 41 mg/dL High 4-19 [facility] Comment on above: Performed By: #### L 100.0100, L500.2500 ####[facility] [address] [place], [address] CBC W/Diff, Automatedon 09-2 0-2025 Absolute Lymph 0.61 X10 3/uL Low 0.83-4.51 [facility] Comment on above: Performed By: #### L 100.0100, L500.2500 ####[facility] [address] [place], [address] Absolute Neut 10.8 X10 3/uL High 2.0-7.7 [facility] Comment on above: Performed By: #### L 100.0100, L500.2500 ####[facility] [address] [place], [address] Basophils/100 WBC (Bld) 0.1 % Normal 0-1 [facility] Comment on above: Performed By: #### L 100.0100, L500.2500 ####[facility] [address] [place], [address] Eosinophils/100 WBC (Bld) 0.0 % Normal 0-5 [facility] Comment on above: Performed By: #### L 100.0100, L500.2500 ####[facility] [address] [place], [address] Erythrocyte distribution width (RBC) [Ratio] 15.0 % High 11.6-14.6 [facility] Comment on above: Performed By: #### L 100.0100, L500.2500 ####[facility] [address] [place], [address] Hematocrit (Bld) [Volume fraction] 37.2 % Normal 37-47 [facility] Comment on above: Performed By: #### L 100.0100, L500.2500 ####[facility] [address] [place], [address] Hemoglobin (Bld) [Mass/Vol] 11.7 g/dL Low 12.0-15.0 [facility] Comment on above: Performed By: #### L 100.0100, L500.2500 ####[facility] [address] [place], [address] IG% 0.600 Normal 0.0-0.9 [facility] Comment on above: Result Comment: IG% - Immature Granulocytes (promyelocytes, myelocytes andmetamyelocytes) > 1% indicates that a LEFT SHIFT is Present. Performed By: #### L 100.0100, L500.2500 ####[facility] [address] [place], [address] Lymphocytes/100 WBC (Bld) 5.1 % Low 19-41 [facility] Comment on above: Performed By: #### L 100.0100, L500.2500 ####[facility] [address] [place], [address] MCH (RBC) [Entitic mass] 29.8 pg Normal 27.0-32.0 [facility] Comment on above: Performed By: #### L 100.0100, L500.2500 ####[facility] [address] [place], [address] MCHC (RBC) [Mass/Vol] 31.5 g/dL Low 32-36 [facility] Comment on above: Performed By: #### L 100.0100, L500.2500 ####[facility] [address] [place], [address] MCV (RBC) [Entitic vol] 94.7 fL Normal 81-99 [facility] Comment on above: Performed By: #### L 100.0100, L500.2500 ####[facility] [address] [place], [address] Monocytes/100 WBC (Bld) 4.1 % Normal 0-10 [facility] Comment on above: Performed By: #### L 100.0100, L500.2500 ####[facility] [address] [place], [address] Neutrophils/100 WBC (Bld) 90.1 % High 47-70 [facility] Comment on above: Performed By: #### L 100.0100, L500.2500 ####[facility] [address] [place], [address] Nucleated RBC (Bld) [#/Vol] 0 10*3/uL Normal 0-5 [facility] Comment on above: Performed By: #### L 100.0100, L500.2500 ####[facility] [address] [place], [address] Platelet mean volume (Bld) [Entitic vol] 10.2 fL Normal 6.2-12.0 [facility] Comment on above: Performed By: #### L 100.0100, L500.2500 ####[facility] [address] [place], [address] Platelets (Bld) [#/Vol] 146 10*3/uL Low 150-450 [facility] Comment on above: Performed By: #### L 100.0100, L500.2500 ####[facility] [address] [place], [address] RBC (Bld) [#/Vol] 3.93 10*6/uL Low 4.2-5.4 [facility] Comment on above: Performed By: #### L 100.0100, L500.2500 ####[facility] [address] [place], [address] RDW SD 52.0 fl High 35.1-43.9 [facility] Comment on above: Performed By: #### L 100.0100, L500.2500 ####[facility] [address] [place], [address] WBC (Bld) [#/Vol] 11.9 10*3/uL High 4.4-11.0 [facility] Comment on above: Performed By: #### L 100.0100, L500.2500 ####[facility] [address] [place], [address] Basic Metabolic Profile (BMP )on 03-21-2025 BUN/CRE 30.4 RATIO High 10-20 [facility] Comment on above: Performed By: #### L 500.2500, L100.0100 ####[facility] [address] [place], [address] Calcium [Mass/Vol] 8.5 mg/dL Normal 7.6-11.0 [facility] Comment on above: Performed By: #### L 500.2500, L100.0100 ####[facility] [address] [place], [address] Chloride [Moles/Vol] 100 mmol/L Normal 98-108 [facility] Comment on above: Performed By: #### L 500.2500, L100.0100 ####[facility] [address] [place], [address] CO2 [Moles/Vol] 30.8 mmol/L Normal 21.0-32.0 [facility] Comment on above: Performed By: #### L 500.2500, L100.0100 ####[facility] [address] [place], [address] Creatinine [Mass/Vol] 1.35 mg/dL High 0.70-1.20 [facility] Comment on above: Performed By: #### L 500.2500, L100.0100 ####[facility] [address] [place], [address] ECRCL 46.43 ml/min Low 50-250 [facility] Comment on above: Performed By: #### L 500.2500, L100.0100 ####[facility] [address] [place], [address] GAP 10 Normal 5-15 [facility] Comment on above: Performed By: #### L 500.2500, L100.0100 ####[facility] [address] [place], [address] GFR/1.73 sq M.predicted among non-blacks MDRD (S/P/Bld) [Vol rate/Area] 41 mL/min/{1.73_m2} Low >60 [facility] Comment on above: Result Comment: mL/m in/1.73m2 CKD-EPI Creatinine Equation (2020) Performed By: #### L 500.2500, L100.0100 ####[facility] [address] [place], [address] Glucose [Mass/Vol] 117 mg/dL High 70-99 [facility] Comment on above: Performed By: #### L 500.2500, L100.0100 ####[facility] [address] [place], [address] Potassium [Moles/Vol] 3.5 mmol/L Normal 3.3-5.1 [facility] Comment on above: Performed By: #### L 500.2500, L100.0100 ####[facility] [address] [place], [address] Sodium [Moles/Vol] 141 mmol/L Normal 133-145 [facility] Comment on above: Performed By: #### L 500.2500, L100.0100 ####[facility] [address] [place], [address] Urea nitrogen [Mass/Vol] 41 mg/dL High 4-19 [facility] Comment on above: Performed By: #### L 500.2500, L100.0100 ####[facility] [address] [place], [address] CBC W/Diff, Automatedon 09- Absolute Lymph 0.54 X10 3/uL Low 0.83-4.51 [facility] Comment on above: Performed By: #### L 500.2500, L100.0100 ####[facility] [address] [place], [address] Absolute Neut 14.3 X10 3/uL High 2.0-7.7 [facility] Comment on above: Performed By: #### L 500.2500, L100.0100 ####[facility] [address] [place], [address] Basophils/100 WBC (Bld) 0.3 % Normal 0-1 [facility] Comment on above: Performed By: #### L 500.2500, L100.0100 ####[facility] [address] [place], [address] Eosinophils/100 WBC (Bld) 0.1 % Normal 0-5 [facility] Comment on above: Performed By: #### L 500.2500, L100.0100 ####[facility] [address] [place], [address] Erythrocyte distribution width (RBC) [Ratio] 15.2 % High 11.6-14.6 [facility] Comment on above: Performed By: #### L 500.2500, L100.0100 ####[facility] [address] [place], [address] Hematocrit (Bld) [Volume fraction] 39.0 % Normal 37-47 [facility] Comment on above: Performed By: #### L 500.2500, L100.0100 ####[facility] [address] [place], [address] Hemoglobin (Bld) [Mass/Vol] 12.5 g/dL Normal 12.0-15.0 [facility] Comment on above: Performed By: #### L 500.2500, L100.0100 ####[facility] [address] [place], [address] IG% 0.800 Normal 0.0-0.9 [facility] Comment on above: Result Comment: IG% - Immature Granulocytes (promyelocytes, myelocytes andmetamyelocytes) > 1% indicates that a LEFT SHIFT is Present. Performed By: #### L 500.2500, L100.0100 ####[facility] [address] [place], [address] Lymphocytes/100 WBC (Bld) 3.4 % Low 19-41 [facility] Comment on above: Performed By: #### L 500.2500, L100.0100 ####[facility] [address] [place], [address] MCH (RBC) [Entitic mass] 29.6 pg Normal 27.0-32.0 [facility] Comment on above: Performed By: #### L 500.2500, L100.0100 ####[facility] [address] [place], [address] MCHC (RBC) [Mass/Vol] 32.1 g/dL Normal 32-36 [facility] Comment on above: Performed By: #### L 500.2500, L100.0100 ####[facility] [address] [place], [address] MCV (RBC) [Entitic vol] 92.2 fL Normal 81-99 [facility] Comment on above: Performed By: #### L 500.2500, L100.0100 ####[facility] [address] [place], [address] Monocytes/100 WBC (Bld) 4.6 % Normal 0-10 [facility] Comment on above: Performed By: #### L 500.2500, L100.0100 ####[facility] [address] [place], [address] Neutrophils/100 WBC (Bld) 90.8 % High 47-70 [facility] Comment on above: Performed By: #### L 500.2500, L100.0100 ####[facility] [address] [place], [address] Nucleated RBC (Bld) [#/Vol] 0 10*3/uL Normal 0-5 [facility] Comment on above: Performed By: #### L 500.2500, L100.0100 ####[facility] [address] [place], [address] Platelet mean volume (Bld) [Entitic vol] 10.1 fL Normal 6.2-12.0 [facility] Comment on above: Performed By: #### L 500.2500, L100.0100 ####[facility] [address] [place], [address] Platelets (Bld) [#/Vol] 171 10*3/uL Normal 150-450 [facility] Comment on above: Performed By: #### L 500.2500, L100.0100 ####[facility] [address] [place], [address] RBC (Bld) [#/Vol] 4.23 10*6/uL Normal 4.2-5.4 [facility] Comment on above: Performed By: #### L 500.2500, L100.0100 ####[facility] [address] [place], [address] RDW SD 50.4 fl High 35.1-43.9 [facility] Comment on above: Performed By: #### L 500.2500, L100.0100 ####[facility] [address] [place], [address] WBC (Bld) [#/Vol] 15.7 10*3/uL High 4.4-11.0 [facility] Comment on above: Performed By: #### L 500.2500, L100.0100 ####[facility] [address] [place], [address] Basic Metabolic Profile (BMP )on 03-20-2025 BUN/CRE 26.4 RATIO High 10-20 [facility] Comment on above: Performed By: #### L 100.0100, L500.2500 ####[facility] [address] [place], [address] Calcium [Mass/Vol] 9.0 mg/dL Normal 7.6-11.0 [facility] Comment on above: Performed By: #### L 100.0100, L500.2500 ####[facility] [address] [place], [address] Chloride [Moles/Vol] 95 mmol/L Low 98-108 [facility] Comment on above: Performed By: #### L 100.0100, L500.2500 ####[facility] [address] [place], [address] CO2 [Moles/Vol] 31.0 mmol/L Normal 21.0-32.0 [facility] Comment on above: Performed By: #### L 100.0100, L500.2500 ####[facility] [address] [place], [address] Creatinine [Mass/Vol] 1.44 mg/dL High 0.70-1.20 [facility] Comment on above: Performed By: #### L 100.0100, L500.2500 ####[facility] [address] [place], [address] ECRCL 43.32 ml/min Low 50-250 [facility] Comment on above: Performed By: #### L 100.0100, L500.2500 ####[facility] [address] [place], [address] GAP 13 Normal 5-15 [facility] Comment on above: Performed By: #### L 100.0100, L500.2500 ####[facility] [address] [place], [address] GFR/1.73 sq M.predicted among non-blacks MDRD (S/P/Bld) [Vol rate/Area] 38 mL/min/{1.73_m2} Low >60 [facility] Comment on above: Result Comment: mL/m in/1.73m2 CKD-EPI Creatinine Equation (2020) Performed By: #### L 100.0100, L500.2500 ####[facility] [address] [place], [address] Glucose [Mass/Vol] 129 mg/dL High 70-99 [facility] Comment on above: Performed By: #### L 100.0100, L500.2500 ####[facility] [address] [place], [address] Potassium [Moles/Vol] 3.6 mmol/L Normal 3.3-5.1 [facility] Comment on above: Performed By: #### L 100.0100, L500.2500 ####[facility] [address] [place], [address] Sodium [Moles/Vol] 139 mmol/L Normal 133-145 [facility] Comment on above: Performed By: #### L 100.0100, L500.2500 ####[facility] [address] [place], [address] Urea nitrogen [Mass/Vol] 38 mg/dL High 4-19 [facility] Comment on above: Performed By: #### L 100.0100, L500.2500 ####[facility] [address] [place], [address] CBC W/Diff, Automatedon 09- Absolute Lymph 0.55 X10 3/uL Low 0.83-4.51 [facility] Comment on above: Performed By: #### L 100.0100, L500.2500 ####[facility] [address] [place], [address] Absolute Neut 12.1 X10 3/uL High 2.0-7.7 [facility] Comment on above: Performed By: #### L 100.0100, L500.2500 ####[facility] [address] [place], [address] Basophils/100 WBC (Bld) 0.2 % Normal 0-1 [facility] Comment on above: Performed By: #### L 100.0100, L500.2500 ####[facility] [address] [place], [address] Eosinophils/100 WBC (Bld) 0.0 % Normal 0-5 [facility] Comment on above: Performed By: #### L 100.0100, L500.2500 ####[facility] [address] [place], [address] Erythrocyte distribution width (RBC) [Ratio] 14.9 % High 11.6-14.6 [facility] Comment on above: Performed By: #### L 100.0100, L500.2500 ####[facility] [address] [place], [address] Hematocrit (Bld) [Volume fraction] 44.0 % Normal 37-47 [facility] Comment on above: Performed By: #### L 100.0100, L500.2500 ####[facility] [address] [place], [address] Hemoglobin (Bld) [Mass/Vol] 14.9 g/dL Normal 12.0-15.0 [facility] Comment on above: Performed By: #### L 100.0100, L500.2500 ####[facility] [address] [place], [address] IG% 0.700 Normal 0.0-0.9 [facility] Comment on above: Result Comment: IG% - Immature Granulocytes (promyelocytes, myelocytes andmetamyelocytes) > 1% indicates that a LEFT SHIFT is Present. Performed By: #### L 100.0100, L500.2500 ####[facility] [address] [place], [address] Lymphocytes/100 WBC (Bld) 4.1 % Low 19-41 [facility] Comment on above: Performed By: #### L 100.0100, L500.2500 ####[facility] [address] [place], [address] MCH (RBC) [Entitic mass] 29.6 pg Normal 27.0-32.0 [facility] Comment on above: Performed By: #### L 100.0100, L500.2500 ####[facility] [address] [place], [address] MCHC (RBC) [Mass/Vol] 33.9 g/dL Normal 32-36 [facility] Comment on above: Performed By: #### L 100.0100, L500.2500 ####[facility] [address] [place], [address] MCV (RBC) [Entitic vol] 87.5 fL Normal 81-99 [facility] Comment on above: Performed By: #### L 100.0100, L500.2500 ####[facility] [address] [place], [address] Monocytes/100 WBC (Bld) 4.1 % Normal 0-10 [facility] Comment on above: Performed By: #### L 100.0100, L500.2500 ####[facility] [address] [place], [address] Neutrophils/100 WBC (Bld) 90.9 % High 47-70 [facility] Comment on above: Performed By: #### L 100.0100, L500.2500 ####[facility] [address] [place], [address] Nucleated RBC (Bld) [#/Vol] 0 10*3/uL Normal 0-5 [facility] Comment on above: Performed By: #### L 100.0100, L500.2500 ####[facility] [address] [place], [address] Platelet mean volume (Bld) [Entitic vol] 10.3 fL Normal 6.2-12.0 [facility] Comment on above: Performed By: #### L 100.0100, L500.2500 ####[facility] [address] [place], [address] Platelets (Bld) [#/Vol] 221 10*3/uL Normal 150-450 [facility] Comment on above: Performed By: #### L 100.0100, L500.2500 ####[facility] [address] [place], [address] RBC (Bld) [#/Vol] 5.03 10*6/uL Normal 4.2-5.4 [facility] Comment on above: Performed By: #### L 100.0100, L500.2500 ####[facility] [address] [place], [address] RDW SD 46.7 fl High 35.1-43.9 [facility] Comment on above: Performed By: #### L 100.0100, L500.2500 ####[facility] [address] [place], [address] WBC (Bld) [#/Vol] 13.3 10*3/uL High 4.4-11.0 [facility] Comment on above: Performed By: #### L 100.0100, L500.2500 ####[facility] [address] [place], [address] Consultation - Cardiologyon 03-20-2025 Consultation - Cardiology Normal [facility] Consultation - Infectious Dx on 03-20-2025 Consultation - Infectious Dx Normal [facility] Extremity Upper without Cont raon 03-20-2025 Extremity Upper without Contra Normal [facility] Respiratory Cultureon 2024 RESPC Mixed normal respira tory talya. No Streptococcus pneumoniae, beta-hemolytic Streptococcus or Staphylococcus aureus isolated. Normal [facility] Comment on above: Performed By: #### M 100.2400, M100.2000 ####[facility] [address] [place], [address] Trough vancomycin levelOrder ed By: Emili Lee on 03-20-2025 Vancomycin trough [Mass/Vol] 15.6 ug/mL High 5.0-15.0 [facility] Vancomycin, Trough Levelon 0 03-20-2025 VANCO, TROUGH 15.6 ug/mL High 5.0-15.0 [facility] Comment on above: Order Comment: 2129 [...] therapy recommended for serious lifethreatening infections include:- Gkieutrwxg-Hvrrcqiixqji-Kknglpcch (Ventilator/Healtcare Associated)-SepsisPLEASE CONTACT PHARMACY SERVICES (#1656) FOR INTERPRETATIONOF RESULTS. Performed By: #### L 501.8820 ####[facility] [address] [place], [address] Absolute lymphocyte countOrd ered By: Emili Lee on 03-19-2025 Lymphocytes Auto (Unsp spec) [#/Vol] 1.78 10*3/uL 0.83-4.51 [facility] Absolute neutrophil countOrd ered By: Emili Lee on 03-19-2025 Neutrophils (Bld) [#/Vol] 12.4 10*3/uL High 2.0-7.7 [facility] Anion gap in Serum or Plasma Ordered By: Emili Lee on 03-19-2025 Anion gap [Moles/Vol] 16 mmol/L High 5- [facility] BUN/creatinine ratioOrdered By: Emili Lee on 03-19-2025 Urea nitrogen/Creatinine [Mass ratio] 26.2 mg/mg High 10- [facility] Basophil percentageOrdered B y: Emili Lee on 03-19-2025 Basophils/100 WBC (Bld) 0.3 % Normal 0-1 [facility] Comment on above: Order Comment: RESUL T(S) PREVIOUSLY REPORTED ON MANUAL REQUISITION DURINGDOWNTIME. Performed By: #### L 100.0100, L500.4050 ####[facility] [address] [place], [address] Bilirubin, totalOrdered By: Emili Lee on 03-19-2025 Bilirubin [Mass/Vol] 0.56 mg/dL 0.00-1.30 [facility] Blood Gases by CPSon 025 Base excess Calc (Bld) [Moles/Vol] 10 mmol/L High -2 to +2 [facility] Comment on above: Performed By: #### L 9000.0800 ####[facility] [address] [place], [address] Blood Gas Type ART Normal [facility] Comment on above: Performed By: #### L 9000.0800 ####[facility] [address], [address] CO2 [Moles/Vol] 36 mmol/L Normal [facility] Comment on above: Performed By: #### L 9000.0800 ####[facility] [address] [place], [address] FI02 35.0 Normal [facility] Comment on above: Performed By: #### L 9000.0800 ####[facility] [address], [address] HCO3 (Bld) [Moles/Vol] 34.3 mmol/L High 22-26 [facility] Comment on above: Performed By: #### L 9000.0800 ####[facility] [address], [address] Mode AC Normal [facility] Comment on above: Performed By: #### L 9000.0800 ####[facility] [address], [address] O2 Delivery Dev Adult Vent Normal [facility] Comment on above: Performed By: #### L 9000.0800 ####[facility] [address] [place], [address] pCO2 48.5 mmHg High 35-45 [facility] Comment on above: Performed By: #### L 9000.0800 ####[facility] [address] [place], [address] PEEP 5 Normal [facility] Comment on above: Performed By: #### L 9000.0800 ####[facility] [address] [place], [address] pH (Bld) 7.46 [pH] High 7.35-7.45 [facility] Comment on above: Performed By: #### L 9000.0800 ####[facility] [address] [place], [address] PO2 63 mmHG Low 75-100 [facility] Comment on above: Performed By: #### L 9000.0800 ####[facility] [address] [place], [address] RR 14 Normal [facility] Comment on above: Performed By: #### L 9000.0800 ####[facility] [address] [place], [address] SITE Art Line Normal [facility] Comment on above: Performed By: #### L 9000.0800 ####[facility] [address] [place], [address] SO2 93 Low 95-99 [facility] Comment on above: Performed By: #### L 9000.0800 ####[facility] [address] [place], [address] Vt 400.0 mL Normal [facility] Comment on above: Performed By: #### L 9000.0800 ####[facility] [address] [place], [address] Blood base excess determinat ionOrdered By: Otilia Hernandez on 03-19-2025 Base excess Calc (BldV) [Moles/Vol] 10 mmol/L High -2-2 [facility] Blood bicarbonate measuremen tOrdered By: Otilia Hernandez on 03-19-2025 HCO3 (Bld) [Moles/Vol] 34.3 mmol/L High 22-26 [facility] Blood platelets count (numbe r/volume)Ordered By: Emili Lee on 03-19-2025 Platelets (Bld) [#/Vol] 244 10*3/uL Normal 150-450 [facility] Comment on above: Order Comment: RESUL T(S) PREVIOUSLY REPORTED ON MANUAL REQUISITION DURINGDOWNTIME. Performed By: #### L 100.0100, L500.4050 ####[facility] [address] [place], [address] CBC W/Diff, Automatedon 03-03 Absolute Lymph 1.78 X10 3/uL Normal 0.83-4.51 [facility] Comment on above: Order Comment: RESUL T(S) PREVIOUSLY REPORTED ON MANUAL REQUISITION DURINGDOWNTIME. Performed By: #### L 100.0100, L500.4050 ####[facility] [address] [place], [address] Absolute Neut 12.4 X10 3/uL High 2.0-7.7 [facility] Comment on above: Order Comment: RESUL T(S) PREVIOUSLY REPORTED ON MANUAL REQUISITION DURINGDOWNTIME. Performed By: #### L 100.0100, L500.4050 ####[facility] [address] [place], [address] IG% 0.500 Normal 0.0-0.9 [facility] Comment on above: Order Comment: RESUL T(S) PREVIOUSLY REPORTED ON MANUAL REQUISITION DURINGDOWNTIME. Result Comment: IG% - Immature Granulocytes (promyelocytes, myelocytes andmetamyelocytes) > 1% indicates that a LEFT SHIFT is Present. Performed By: #### L 100.0100, L500.4050 ####[facility] [address] [place], [address] RDW SD 45.3 fl High 35.1-43.9 [facility] Comment on above: Order Comment: RESUL T(S) PREVIOUSLY REPORTED ON MANUAL REQUISITION DURINGDOWNTIME. Performed By: #### L 100.0100, L500.4050 ####[facility] [address] [place], [address] Hematocrit (Bld) [Volume fraction] 46.5 % Normal 37-47 [facility] Comment on above: Order Comment: RESUL T(S) PREVIOUSLY REPORTED ON MANUAL REQUISITION DURINGDOWNTIME. Performed By: #### L 100.0100, L500.4050 ####[facility] [address] [place], [address] Hemoglobin (Bld) [Mass/Vol] 15.7 g/dL High 12.0-15.0 [facility] Comment on above: Order Comment: RESUL T(S) PREVIOUSLY REPORTED ON MANUAL REQUISITION DURINGDOWNTIME. Performed By: #### L 100.0100, L500.4050 ####[facility] [address] [place], [address] RBC (Bld) [#/Vol] 5.28 10*6/uL Normal 4.2-5.4 [facility] Comment on above: Order Comment: RESUL T(S) PREVIOUSLY REPORTED ON MANUAL REQUISITION DURINGDOWNTIME. Performed By: #### L 100.0100, L500.4050 ####[facility] [address] [place], [address] WBC (Bld) [#/Vol] 14.9 10*3/uL High 4.4-11.0 [facility] Comment on above: Order Comment: RESUL T(S) PREVIOUSLY REPORTED ON MANUAL REQUISITION DURINGDOWNTIME. Performed By: #### L 100.0100, L500.4050 ####[facility] [address] [place], [address] CPK Total, Creatine Kinaseon 03-19-2025 CPK TOTAL 137 U/L Normal 24-195 [facility] Comment on above: Order Comment: Comme nts: DC when propofol is d/c'd Performed By: #### L 501.3620, L501.5000 ####[facility] [address] [place], [address] Carbon dioxide, total [Moles /volume] in Central venous bloodOrdered By: Emili Lee on 03-19-2025 CO2 [Moles/Vol] 30.8 mmol/L 21.0-32.0 [facility] Chloride assayOrdered By: Anna Lee on 03-19-2025 Chloride [Moles/Vol] 88 mmol/L Low 98-108 [facility] Comprehensive Metabolic Prof ilon 03-19-2025 Albumin [Mass/Vol] 3.6 g/dL Normal 3.4-4.8 [facility] Comment on above: Performed By: #### L 100.0100, L500.4050 ####[facility] [address] [place], [address] Albumin/Globulin [Mass ratio] 1.2 {ratio} Normal 0.9-2.4 [facility] Comment on above: Performed By: #### L 100.0100, L500.4050 ####[facility] [address] [place], [address] ALK PHOS 149 U/L High 35-104 [facility] Comment on above: Performed By: #### L 100.0100, L500.4050 ####[facility] [address] [place], [address] ALT [Catalytic activity/Vol] 64 U/L High <=34 [facility] Comment on above: Performed By: #### L 100.0100, L500.4050 ####[facility] [address] [place], [address] AST [Catalytic activity/Vol] 94 U/L High <=31 [facility] Comment on above: Performed By: #### L 100.0100, L500.4050 ####[facility] [address] [place], [address] Bilirubin [Mass/Vol] 0.56 mg/dL Normal 0.00-1.30 [facility] Comment on above: Performed By: #### L 100.0100, L500.4050 ####[facility] [address] [place], [address] BUN/CRE 26.2 RATIO High 10-20 [facility] Comment on above: Performed By: #### L 100.0100, L500.4050 ####[facility] [address] [place], [address] Calcium [Mass/Vol] 8.7 mg/dL Normal 7.6-11.0 [facility] Comment on above: Performed By: #### L 100.0100, L500.4050 ####[facility] [address] [place], [address] Chloride [Moles/Vol] 88 mmol/L Low 98-108 [facility] Comment on above: Performed By: #### L 100.0100, L500.4050 ####[facility] [address] [place], [address] CO2 [Moles/Vol] 30.8 mmol/L Normal 21.0-32.0 [facility] Comment on above: Performed By: #### L 100.0100, L500.4050 ####[facility] [address] [place], [address] Creatinine [Mass/Vol] 2.06 mg/dL High 0.70-1.20 [facility] Comment on above: Performed By: #### L 100.0100, L500.4050 ####[facility] [address] [place], [address] ECRCL 29.42 ml/min Low 50-250 [facility] Comment on above: Performed By: #### L 100.0100, L500.4050 ####[facility] [address] [place], [address] GAP 16 High 5-15 [facility] Comment on above: Performed By: #### L 100.0100, L500.4050 ####[facility] [address] [place], [address] GFR/1.73 sq M.predicted among non-blacks MDRD (S/P/Bld) [Vol rate/Area] 25 mL/min/{1.73_m2} Low >60 [facility] Comment on above: Result Comment: mL/m in/1.73m2 CKD-EPI Creatinine Equation (2020) Performed By: #### L 100.0100, L500.4050 ####[facility] [address] [place], [address] Globulin (S) [Mass/Vol] 3.0 g/dL Normal 2.2-4.2 [facility] Comment on above: Performed By: #### L 100.0100, L500.4050 ####[facility] [address] [place], [address] Glucose [Mass/Vol] 88 mg/dL Normal 70-99 [facility] Comment on above: Performed By: #### L 100.0100, L500.4050 ####[facility] [address] [place], [address] Potassium [Moles/Vol] 3.5 mmol/L Normal 3.3-5.1 [facility] Comment on above: Performed By: #### L 100.0100, L500.4050 ####[facility] [address] [place], [address] Sodium [Moles/Vol] 134 mmol/L Normal 133-145 [facility] Comment on above: Performed By: #### L 100.0100, L500.4050 ####[facility] [address] [place], [address] T PROT 6.6 g/dL Normal 5.9-8.4 [facility] Comment on above: Performed By: #### L 100.0100, L500.4050 ####[facility] [address] [place], [address] Urea nitrogen [Mass/Vol] 54 mg/dL High 4-19 [facility] Comment on above: Performed By: #### L 100.0100, L500.4050 ####[facility] [address] 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, [address] Echo Limited w/Contraston Echo Limited w/Contrast Normal [facility] Electrocardiogram reportOrde red By: Saul Kearney on 03-19-2025 EKG study [facility] Work Phone: Eosinophil %Ordered By: Stephen Lee on 03-19-2025 Eosinophils/100 WBC (Bld) 0.1 % Normal 0-5 [facility] Comment on above: Order Comment: RESUL T(S) PREVIOUSLY REPORTED ON MANUAL REQUISITION DURINGDOWNTIME. Performed By: #### L 100.0100, L500.4050 ####[facility] [address] [place], [place], [address] Erythrocyte distribution wid th ratioOrdered By: Emili Lee on 03-19-2025 Erythrocyte distribution width (RBC) [Ratio] 14.4 % Normal 11.6-14.6 [facility] Comment on above: Order Comment: RESUL T(S) PREVIOUSLY REPORTED ON MANUAL REQUISITION DURINGDOWNTIME. Performed By: #### L 100.0100, L500.4050 ####[facility] [address] [place], [place], [address] Gastric contents occult bloo d detectionOrdered By: Antwan Gardner on 03-19-2025 Hemoglobin.gastrointest inal Ql (Cecily fld) Positive Abnormal [facility] Hemoglobin.gastrointest inal Ql (Cecily fld) Positive Abnormal [facility] Gastric, Occult Bloodon 03-03 GASTOC Normal Reference Ran ge = Negative Gastrocult- Occult Blood A * POSITIVE * A Gastroccult pH 2 OCCULT BLOOD POSITIVE Normal [facility] Comment on above: Performed By: #### M 100.1912 ####[facility] [address] [place], [place], [address] Glomerular filtration rate ( GFR) estimation/1.73 sq m using serum, plasma, or whole bOrdered By: Emili eLe on 03-19-2025 GFR/1.73 sq M.predicted among non-blacks MDRD (S/P/Bld) [Vol rate/Area] 25 mL/min/{1.73_m2} Low >60 [facility] Comment on above: mL/min/1.73m2 CKD-EP I Creatinine Equation (2020) Hematocrit Auto (Bld) [Volum e fraction]Ordered By: Emili Lee on 03-19-2025 Hematocrit (Bld) [Volume fraction] 46.5 % 37-47 [facility] Hemoglobin measurementOrdere d By: Emili Lee on 03-19-2025 Hemoglobin (Bld) [Mass/Vol] 15.7 g/dL High 12.0-15.0 [facility] Immature granulocyte percent ageOrdered By: Emili Lee on 03-19-2025 Immature granulocytes/100 WBC (Bld) 0.500 % 0.0-0.9 [facility] Comment on above: IG% - Immature Granu locytes (promyelocytes, myelocytes and metamyelocytes) > 1% indicates that a LEFT SHIFT is Present. Laboratory - Chemistry and C hemistry - challengeOrdered By: Emili Lee on 03-19-2025 AST [Catalytic activity/Vol] 94 U/L High <32 [facility] Lactic Acidon 03-19-2025 Lactate [Moles/Vol] 1.3 mmol/L Normal 0.0-2.0 [facility] Comment on above: Order Comment: Y Performed By: #### L 503.6005 ####[facility] [address] [place], [place], [phone] Limited echocardiogram repor tOrdered By: Saul Kearney on 03-19-2025 Study report [facility] Work Phone: Lymphocyte %Ordered By: Stephen Lee on 03-19-2025 Lymphocytes/100 WBC (Bld) 11.9 % Low 19-41 [facility] Comment on above: Order Comment: RESUL T(S) PREVIOUSLY REPORTED ON MANUAL REQUISITION DURINGDOWNTIME. Performed By: #### L 100.0100, L500.4050 ####[facility] [address] [place], [place], [address] MCV (mean corpuscular volume ) determinationOrdered By: Emili Lee on 03-19-2025 MCV (RBC) [Entitic vol] 88.1 fL Normal 81-99 [facility] Comment on above: Delta: 93.5 on 03/18-1514 Order Comment: RESUL T(S) PREVIOUSLY REPORTED ON MANUAL REQUISITION DURINGDOWNTIME. Performed By: #### L 100.0100, L500.4050 ####[facility] [address] [place], [place], [address] Mean corpuscular hemoglobin (MCH) determinationOrdered By: Emili Lee on 03-19-2025 MCH (RBC) [Entitic mass] 29.7 pg Normal 27.0-32.0 [facility] Comment on above: Order Comment: RESUL T(S) PREVIOUSLY REPORTED ON MANUAL REQUISITION DURINGDOWNTIME. Performed By: #### L 100.0100, L500.4050 ####[facility] [address] [place], [place], [address] Mean corpuscular hemoglobin concentration (MCHC) determinationOrdered By: Emili Lee on 03-19-2025 MCHC (RBC) [Mass/Vol] 33.8 g/dL Normal 32-36 [facility] Comment on above: Delta: 31.3 on 03/18-1514 Order Comment: RESUL T(S) PREVIOUSLY REPORTED ON MANUAL REQUISITION DURINGDOWNTIME. Performed By: #### L 100.0100, L500.4050 ####[facility] [address] [place], [place], [address] Mean platelet volume determi nationOrdered By: Emili Lee on 03-19-2025 Platelet mean volume (Bld) [Entitic vol] 10.3 fL Normal 6.2-12.0 [facility] Comment on above: Order Comment: RESUL T(S) PREVIOUSLY REPORTED ON MANUAL REQUISITION DURINGDOWNTIME. Performed By: #### L 100.0100, L500.4050 ####[facility] [address] [facility] [place], [place], [phone] Measurement, pHOrdered By: Katja Hernandez on 03-19-2025 pH (Unsp spec) 7.46 [pH] High 7.35-7.45 [facility] Monocyte percentageOrdered B y: Emili Lee on 03-19-2025 Monocytes/100 WBC (Bld) 4.2 % Normal 0-10 [facility] Comment on above: Order Comment: RESUL T(S) PREVIOUSLY REPORTED ON MANUAL REQUISITION DURINGDOWNTIME. Performed By: #### L 100.0100, L500.4050 ####[facility] [address] [place], [address] Neutrophil %Ordered By: Stephen Lee on 03-19-2025 Neutrophils/100 WBC (Bld) 83.0 % High 47-70 [facility] Comment on above: Order Comment: RESUL T(S) PREVIOUSLY REPORTED ON MANUAL REQUISITION DURINGDOWNTIME. Performed By: #### L 100.0100, L500.4050 ####[facility] [address] [place], [address] No Panel InformationOrdered By: Otilia Hernandez on 03-19-2025 ART [facility] Art Line [facility] AC [facility] Adult Vent [facility] 400.0 mL [facility] 14 [facility] 5 [facility] No Panel InformationOrdered By: Emili Lee on 03-19-2025 94 U/L High <32 [facility] Osmolality, Urineon 03-19-20 25 OSMOLALITY,UR 437 mOsm/KG Normal [facility] Comment on above: Order Comment: 00:58 03-19-25 Result Comment: Norm al Urine Reference Ranges Random: 50 - 1200 mOsm/kg H20 depending on fluid intake Random: >850 mOsm/kg after 12 hour fluid restriction 24 hour: 300 - 900 mOsm/kg H2O Performed By: #### L 500.9400, L501.7400, L501.1200, L502.0715 ####[facility] [address] [place], [address] Potassium measurement (mass/ volume)Ordered By: Emili Lee on 03-19-2025 Potassium (Unsp spec) [Mass/Vol] 3.5 mmol/L 3.3-5.1 [facility] RBC Auto (Bld) [#/Vol]Ordere d By: Emili Lee on 03-19-2025 RBC (Bld) [#/Vol] 5.28 10*6/uL 4.2-5.4 [facility] RDWOrdered By: Emili Lee on 03-19-2025 RDW 45.3 fl High 35.1-43.9 [facility] RESPIRATORY PANEL MOLECULARo n 03-19-2025 RP PANEL Normal [facility] Comment on above: Performed By: #### M 687.222 ####[facility] [address] [place], [place], [phone] Serum creatinine measurement (mass/volume)Ordered By: Emili Lee on 03-19-2025 Creatinine [Mass/Vol] 2.06 mg/dL High 0.70-1.20 [facility] Serum globulin measurementOr dered By: Emili Lee on 03-19-2025 Globulin (S) [Mass/Vol] 3.0 g/dL 2.2-4.2 [facility] Serum glucose measurement (m ass/volume)Ordered By: Emili Lee on 03-19-2025 Glucose [Mass/Vol] 88 mg/dL 70-99 [facility] Serum or plasma alanine gao otransferase (ALT) measurementOrdered By: Emili Lee on 03-19-2025 ALT [Catalytic activity/Vol] 64 U/L High <35 [facility] Serum or plasma albumin lisa urement (mass/volume)Ordered By: Emili Lee on 03-19-2025 Albumin [Mass/Vol] 3.6 g/dL 3.4-4.8 [facility] Serum or plasma albumin/glob ulin mass ratioOrdered By: Emili Lee on 03-19-2025 Albumin/Globulin [Mass ratio] 1.2 {ratio} 0.9-2.4 [facility] Serum or plasma alkaline bee sphatase measurementOrdered By: Emili Lee on 03-19-2025 ALP [Catalytic activity/Vol] 149 U/L High 35-104 [facility] Serum or plasma calcium lisa urement (mass/volume)Ordered By: Emili Lee on 03-19-2025 Calcium [Mass/Vol] 8.7 mg/dL 7.6-11.0 [facility] Serum or plasma urea nitroge n measurement (mass/volume)Ordered By: Emili Lee on 03-19-2025 Urea nitrogen [Mass/Vol] 54 mg/dL High 4-19 [facility] Shoulder min 2 Viewson 03-19 Shoulder min [address] [facility] Sodium levelOrdered By: Stephen Lee on 03-19-2025 Sodium [Moles/Vol] 134 mmol/L 133-145 [facility] Total carbon dioxide measure mentOrdered By: Otilia Hernandez on 03-19-2025 CO2 [Moles/Vol] 36 mmol/L [facility] Total proteinOrdered By: Ketan Lee on 03-19-2025 Protein [Mass/Vol] 6.6 g/dL 5.9-8.4 [facility] Triglycerideson 03-19-2025 Triglyceride [Mass/Vol] 90 mg/dL Normal [facility] Comment on above: Order Comment: Comme nts: DC when propofol is d/c'dDC when propofol is d/c'd Result Comment: The drugs N-Acetylcysteine and Metamizole may falselydepress this assay.Normal range: <150 mg/dLBorderline High: 150-199 mg/dLHigh: 200-499 mg/dLVery High: >500 mg/dL Performed By: #### L 501.3620, L501.5000 ####[facility] [address] [place], [address] Urea Nitrogen, Urineon 03-19 URINE UREA 390 mg/dL Normal NO RANGE EST. [facility] Comment on above: Order Comment: 00:58 03-19-25 Performed By: #### L 500.9400, L501.7400, L501.1200, L502.0715 ####[facility] [address] [place], [address] Urine Cultureon 03-19-2025 URC Culture exhibits no growth. Normal [facility] Comment on above: Performed By: #### M 100.2200 ####[facility] [address] [place], [address] Urine Electrolytes- Randomon 03-19-2025 Chloride,URINE < 20 Normal Not Establ. [facility] Comment on above: Order Comment: 00:58 03-19-25 Performed By: #### L 500.9400, L501.7400, L501.1200, L502.0715 ####[facility] [address] [place], [address] Sodium (U) [Moles/Vol] 28 mmol/L Normal Not Establ. [facility] Comment on above: Order Comment: 00:58 03-19-25 Performed By: #### L 500.9400, L501.7400, L501.1200, L502.0715 ####[facility] [address] [place], [address] UR K 31.9 mmol/L Normal Not Establ. [facility] Comment on above: Order Comment: 00:58 03-19-25 Performed By: #### L 500.9400, L501.7400, L501.1200, L502.0715 ####[facility] [address] [place], [address] White blood cell (WBC) count Ordered By: Emili Lee on 03-19-2025 WBC (Bld) [#/Vol] 14.9 10*3/uL High 4.4-11.0 [facility] 12 Lead EKGon 03-18-2025 12 Lead EKG Normal [facility] Abdomen Single View (Portabl e)on 03-18-2025 Abdomen Single View (Portable) Normal [facility] Absolute lymphocyte countOrd ered By: Deion Levy on 03-18-2025 Lymphocytes Auto (Unsp spec) [#/Vol] 0.73 10*3/uL Low 0.83-4.51 [facility] Absolute neutrophil countOrd ered By: Deion Levy on 03-18-2025 Neutrophils (Bld) [#/Vol] 8.4 10*3/uL High 2.0-7.7 [facility] Activated partial thrombopla stin time (aPTT) in platelet poor plasma by coagulation aOrdered By: Deion Levy on 03-18-2025 aPTT Coag (PPP) [Time] 27.8 s 24.1-36.2 [facility] Anion gap in Serum or Plasma Ordered By: Deion Levy on 03-18-2025 Anion gap [Moles/Vol] 14 mmol/L 5-15 [facility] Automated lymphocyte count a s percentage of total leukocytesOrdered By: Deion Levy on 03-18-2025 Lymphocytes/100 WBC Auto (Unsp spec) 7.4 % Low 19-41 [facility] BUN/creatinine ratioOrdered By: Deion Levy on 03-18-2025 Urea nitrogen/Creatinine [Mass ratio] 22.8 mg/mg High 10-20 [facility] Basophil percentageOrdered B y: Deion Levy on 03-18-2025 Basophils/100 WBC (Bld) 0.4 % 0-1 [facility] Bilirubin Test strip Ql (U)O rdered By: Deionfreida Levy on 03-18-2025 Bilirubin Ql (U) Negative Negative [facility] Bilirubin, totalOrdered By: Deionfreida Levy on 03-18-2025 Bilirubin [Mass/Vol] 0.35 mg/dL 0.00-1.30 [facility] Blood Gases by CPSon 025 Base excess Calc (Bld) [Moles/Vol] 4 mmol/L High -2 to +2 [facility] Comment on above: Performed By: #### L 9000.0800 ####[facility] [address] [place], [address] Blood Gas Type ART Normal [facility] Comment on above: Performed By: #### L 9000.0800 ####[facility] [address] [place], [address] CO2 [Moles/Vol] 32 mmol/L Normal [facility] Comment on above: Performed By: #### L 9000.0800 ####[facility] [address] [place], [address] FI02 40.0 Normal [facility] Comment on above: Performed By: #### L 9000.0800 ####[facility] [address] [place], [address] HCO3 (Bld) [Moles/Vol] 30.3 mmol/L High 22-26 [facility] Comment on above: Performed By: #### L 9000.0800 ####[facility] [address] [place], [address] Mode AC/VC Normal [facility] Comment on above: Performed By: #### L 9000.0800 ####[facility] [address] [place], [address] O2 Delivery Dev Adult Vent Normal [facility] Comment on above: Performed By: #### L 9000.0800 ####[facility] [address] [place], [address] pCO2 59.2 mmHg High 35-45 [facility] Comment on above: Performed By: #### L 9000.0800 ####[facility] [address] [place], [address] PEEP 5 Normal [facility] Comment on above: Performed By: #### L 9000.0800 ####[facility] [address] [place], [address] pH (Bld) 7.32 [pH] Low 7.35-7.45 [facility] Comment on above: Performed By: #### L 9000.0800 ####[facility] [address] [place], [address] PO2 101 mmHG High 75-100 [facility] Comment on above: Performed By: #### L 9000.0800 ####[facility] [address] [place], [address] RR 14 Normal [facility] Comment on above: Performed By: #### L 9000.0800 ####[facility] [address] [place], [address] SITE L Brach Normal [facility] Comment on above: Performed By: #### L 9000.0800 ####[facility] [address] [place], [address] SO2 97 Normal 95-99 [facility] Comment on above: Performed By: #### L 9000.0800 ####[facility] [address] [place], [address] Vt 400.0 mL Normal [facility] Comment on above: Performed By: #### L 9000.0800 ####[facility] [address] [place], [address] Blood base excess determinat ionOrdered By: Emili Lee on 03-18-2025 Base excess Calc (BldV) [Moles/Vol] 4 mmol/L High -2-2 [facility] Blood bicarbonate measuremen tOrdered By: Emili Lee on 03-18-2025 HCO3 (Bld) [Moles/Vol] 30.3 mmol/L High 22-26 [facility] Blood cultureOrdered By: Deion Levy on 03-18-2025 Bacteria identified Cx Nom (Bld) No growth in 5 days. [facility] Bacteria identified Cx Nom (Bld) No growth in 5 days. [facility] Brain/Head without Contrasto n 03-18-2025 Brain/Head without Contrast Normal [facility] CBC W/Diff, Automatedon 09- Absolute Lymph 0.73 X10 3/uL Low 0.83-4.51 [facility] Comment on above: Performed By: #### L 501.9520, L500.4050, L100.0100 ####[facility] [address] [place], [address] Absolute Neut 8.4 X10 3/uL High 2.0-7.7 [facility] Comment on above: Performed By: #### L 501.9520, L500.4050, L100.0100 ####[facility] [address] [place], [address] Basophils/100 WBC (Bld) 0.4 % Normal 0-1 [facility] Comment on above: Performed By: #### L 501.9520, L500.4050, L100.0100 ####[facility] [address] [place], [address] Eosinophils/100 WBC (Bld) 0.0 % Normal 0-5 [facility] Comment on above: Performed By: #### L 501.9520, L500.4050, L100.0100 ####[facility] [address] [place], [address] Erythrocyte distribution width (RBC) [Ratio] 14.6 % Normal 11.6-14.6 [facility] Comment on above: Performed By: #### L 501.9520, L500.4050, L100.0100 ####[facility] [address] [place], [address] Hematocrit (Bld) [Volume fraction] 50.5 % High 37-47 [facility] Comment on above: Performed By: #### L 501.9520, L500.4050, L100.0100 ####[facility] [address] [place], [address] Hemoglobin (Bld) [Mass/Vol] 15.8 g/dL High 12.0-15.0 [facility] Comment on above: Performed By: #### L 501.9520, L500.4050, L100.0100 ####[facility] [address] [place], [address] IG% 0.900 Normal 0.0-0.9 [facility] Comment on above: Result Comment: IG% - Immature Granulocytes (promyelocytes, myelocytes andmetamyelocytes) > 1% indicates that a LEFT SHIFT is Present. Performed By: #### L 501.9520, L500.4050, L100.0100 ####[facility] [address] [place], [address] Lymphocytes/100 WBC (Bld) 7.4 % Low 19-41 [facility] Comment on above: Performed By: #### L 501.9520, L500.4050, L100.0100 ####[facility] [address] [place], [address] MCH (RBC) [Entitic mass] 29.3 pg Normal 27.0-32.0 [facility] Comment on above: Performed By: #### L 501.9520, L500.4050, L100.0100 ####[facility] [address] [place], [address] MCHC (RBC) [Mass/Vol] 31.3 g/dL Low 32-36 [facility] Comment on above: Performed By: #### L 501.9520, L500.4050, L100.0100 ####[facility] [address] [place], [address] MCV (RBC) [Entitic vol] 93.5 fL Normal 81-99 [facility] Comment on above: Performed By: #### L 501.9520, L500.4050, L100.0100 ####[facility] [address] [place], [address] Monocytes/100 WBC (Bld) 7.0 % Normal 0-10 [facility] Comment on above: Performed By: #### L 501.9520, L500.4050, L100.0100 ####[facility] [address] [place], [address] Neutrophils/100 WBC (Bld) 84.3 % High 47-70 [facility] Comment on above: Performed By: #### L 501.9520, L500.4050, L100.0100 ####[facility] [address] [place], [address] Nucleated RBC (Bld) [#/Vol] 0 10*3/uL Normal 0-5 [facility] Comment on above: Performed By: #### L 501.9520, L500.4050, L100.0100 ####[facility] [address] [place], [address] Platelet mean volume (Bld) [Entitic vol] 10.4 fL Normal 6.2-12.0 [facility] Comment on above: Performed By: #### L 501.9520, L500.4050, L100.0100 ####[facility] [address] [place], [address] Platelets (Bld) [#/Vol] 218 10*3/uL Normal 150-450 [facility] Comment on above: Performed By: #### L 501.9520, L500.4050, L100.0100 ####[facility] [address] [place], [address] RBC (Bld) [#/Vol] 5.40 10*6/uL Normal 4.2-5.4 [facility] Comment on above: Performed By: #### L 501.9520, L500.4050, L100.0100 ####[facility] [address] [place], [address] RDW SD 49.9 fl High 35.1-43.9 [facility] Comment on above: Performed By: #### L 501.9520, L500.4050, L100.0100 ####[facility] [address] [place], [address] WBC (Bld) [#/Vol] 9.9 10*3/uL Normal 4.4-11.0 [facility] Comment on above: Performed By: #### L 501.9520, L500.4050, L100.0100 ####[facility] [address] [place], [address] CRPon 03-18-2025 C-REACTIVE PROT 5.32 mg/L High 0.0-3.0 [facility] Comment on above: Performed By: #### L 101.9900, L509.7001, L501.8410 ####[facility] [address] [place], [address] CTA Abd/Pelvis W/WO Contrast on 03-18-2025 CTA Abd/Pelvis W/WO Contrast Normal [facility] Carbon dioxide, total [Moles /volume] in Central venous bloodOrdered By: Deion Levy on 03-18-2025 CO2 [Moles/Vol] 32.8 mmol/L High 21.0-32.0 [facility] Chest 1 View (Portable)on Chest 1 View (Portable) Normal [facility] Chest 1 View (Portable) Normal [facility] Chest PA and Lateralon 03-18 Chest PA and Lateral Normal [facility] Chloride assayOrdered By: Mai Levy on 03-18-2025 Chloride [Moles/Vol] 84 mmol/L Low 98-108 [facility] Comprehensive Metabolic Prof ilon 03-18-2025 Albumin [Mass/Vol] 4.1 g/dL Normal 3.4-4.8 [facility] Comment on above: Performed By: #### L 501.9520, L500.4050, L100.0100 ####[facility] [address] [place], [address] Albumin/Globulin [Mass ratio] 1.1 {ratio} Normal 0.9-2.4 [facility] Comment on above: Performed By: #### L 501.9520, L500.4050, L100.0100 ####[facility] [address] [place], [address] ALK PHOS 162 U/L High 35-104 [facility] Comment on above: Performed By: #### L 501.9520, L500.4050, L100.0100 ####[facility] [address] [place], [address] ALT [Catalytic activity/Vol] 61 U/L High <=34 [facility] Comment on above: Performed By: #### L 501.9520, L500.4050, L100.0100 ####[facility] [address] [place], [address] AST [Catalytic activity/Vol] 86 U/L High <=31 [facility] Comment on above: Performed By: #### L 501.9520, L500.4050, L100.0100 ####[facility] [address] [place], [address] Bilirubin [Mass/Vol] 0.35 mg/dL Normal 0.00-1.30 [facility] Comment on above: Performed By: #### L 501.9520, L500.4050, L100.0100 ####[facility] [address] [place], [address] BUN/CRE 22.8 RATIO High 10-20 [facility] Comment on above: Performed By: #### L 501.9520, L500.4050, L100.0100 ####[facility] [address] [place], [address] Calcium [Mass/Vol] 9.7 mg/dL Normal 7.6-11.0 [facility] Comment on above: Performed By: #### L 501.9520, L500.4050, L100.0100 ####[facility] [address] [place], [address] Chloride [Moles/Vol] 84 mmol/L Low 98-108 [facility] Comment on above: Performed By: #### L 501.9520, L500.4050, L100.0100 ####[facility] [address] [place], [address] CO2 [Moles/Vol] 32.8 mmol/L High 21.0-32.0 [facility] Comment on above: Performed By: #### L 501.9520, L500.4050, L100.0100 ####[facility] [address] [place], [address] Creatinine [Mass/Vol] 2.22 mg/dL High 0.70-1.20 [facility] Comment on above: Performed By: #### L 501.9520, L500.4050, L100.0100 ####[facility] [address] [place], [address] ECRCL 27.85 ml/min Low 50-250 [facility] Comment on above: Performed By: #### L 501.9520, L500.4050, L100.0100 ####[facility] [address] [place], [address] GAP 14 Normal 5-15 [facility] Comment on above: Performed By: #### L 501.9520, L500.4050, L100.0100 ####[facility] [address] [place], [address] GFR/1.73 sq M.predicted among non-blacks MDRD (S/P/Bld) [Vol rate/Area] 22 mL/min/{1.73_m2} Low >60 [facility] Comment on above: Result Comment: mL/m in/1.73m2 CKD-EPI Creatinine Equation (2020) Performed By: #### L 501.9520, L500.4050, L100.0100 ####[facility] [address] [place], [address] Globulin (S) [Mass/Vol] 3.6 g/dL Normal 2.2-4.2 [facility] Comment on above: Performed By: #### L 501.9520, L500.4050, L100.0100 ####[facility] [address] [place], [address] Glucose [Mass/Vol] 115 mg/dL High 70-99 [facility] Comment on above: Performed By: #### L 501.9520, L500.4050, L100.0100 ####[facility] [address] [place], [address] Potassium [Moles/Vol] 4.4 mmol/L Normal 3.3-5.1 [facility] Comment on above: Performed By: #### L 501.9520, L500.4050, L100.0100 ####[facility] [address] [place], [address] Sodium [Moles/Vol] 131 mmol/L Low 133-145 [facility] Comment on above: Performed By: #### L 501.9520, L500.4050, L100.0100 ####[facility] [address] [place], [address] T PROT 7.7 g/dL Normal 5.9-8.4 [facility] Comment on above: Performed By: #### L 501.9520, L500.4050, L100.0100 ####[facility] [address] [place], [address] Urea nitrogen [Mass/Vol] 51 mg/dL High 4-19 [facility] Comment on above: Performed By: #### L 501.9520, L500.4050, L100.0100 ####[facility] [address] [place], [address] Emergency Department Summary on 03-18-2025 Emergency Department Summary Normal [facility] Eosinophil percentageOrdered By: Deion Levy on 03-18-2025 Eosinophils/100 WBC (Bld) 0.0 % 0-5 [facility] Erythrocyte Sed Rateon 03-18 SED RATE 37 mm/hr High 0-30 [facility] Comment on above: Performed By: #### L 101.9900, L509.7001, L501.6710 ####[facility] [address] [place], [address] Erythrocyte distribution wid th ratioOrdered By: Deion Levy on 03-18-2025 Erythrocyte distribution width (RBC) [Ratio] 14.6 % 11.6-14.6 [facility] Erythrocyte distribution wid th standard deviationOrdered By: Deion Levy on 03-18-2025 Erythrocyte distribution width (RBC) [Ratio] 49.9 fl High 35.1-43.9 [facility] Erythrocyte sedimentation ra teOrdered By: Emili Lee on 03-18-2025 ESR (Bld) [Velocity] 37 mm/h High 0-30 [facility] Glomerular filtration rate ( GFR) estimation/1.73 sq m using serum, plasma, or whole bOrdered By: Deion Levy on 03-18-2025 GFR/1.73 sq M.predicted among non-blacks MDRD (S/P/Bld) [Vol rate/Area] 22 mL/min/{1.73_m2} Low >60 [facility] Comment on above: mL/min/1.73m2 CKD-EP I Creatinine Equation (2020) [facility] deOrdered By: Otilia Hernandez on 03-18-2025 Glucose [Mass/Vol] 118 mg/dL High 74-106 [facility] Gram stainOrdered By: Deion johnson on 03-18-2025 Microscopic observation Gram stain Nom (Unsp spec) [facility] Microscopic observation Gram stain Nom (Unsp spec) [facility] H AND P Exam - Hospitaliston 03-18-2025 H&P Exam - Hospitalist Normal [facility] Hematocrit Auto (Bld) [Volum e fraction]Ordered By: Deion Levy on 03-18-2025 Hematocrit (Bld) [Volume fraction] 50.5 % High 37-47 [facility] Hemoglobin measurementOrdere d By: Deion Levy on 03-18-2025 Hemoglobin (Bld) [Mass/Vol] 15.8 g/dL High 12.0-15.0 [facility] Immature granulocytes/100 WB C Auto (Bld)Ordered By: [facility] on 03-18-2025 Immature granulocytes/100 WBC (Bld) 0.900 % 0.0-0.9 [facility] Comment on above: IG% - Immature Granu locytes (promyelocytes, myelocytes and metamyelocytes) > 1% indicates that a LEFT SHIFT is Present. International normalized rat io (INR) calculationOrdered By: [facility] on 03-18-2025 INR Coag (Bld) [Relative time] 0.9 {INR} [facility] Ketones Test strip Ql (U)Ord ered By: [facility] on 03-18-2025 Ketones Ql (U) Negative Negative [facility] L509.7001on 03-18-2025 Procalcitonin 0.10 ng/mL Normal <=0.10 [facility] Comment on above: Result Comment: Inte [...] Performed By: #### L 101.9900, L509.7001, L501.6710 ####[facility] [address] [place], [place], [address] Laboratory - Chemistry and C hemistry - challengeOrdered By: [facility] on 03-18-2025 AST [Catalytic activity/Vol] 86 U/L High <32 [facility] Lactic Acidon 03-18-2025 Lactate [Moles/Vol] 1.1 mmol/L Normal 0.0-2.0 [facility] Comment on above: Order Comment: Y Performed By: #### L 300.3900, L300.4310, L503.6005, M200.1000 ####[facility] [address] [place], [address] Lactic acid measurementOrder ed By: Deion Levy on 03-18-2025 Lactate [Moles/Vol] 1.1 mmol/L 0.0-2.0 [facility] MCV (mean corpuscular volume ) determinationOrdered By: Deion Levy on 03-18-2025 MCV (RBC) [Entitic vol] 93.5 fL 81-99 [facility] Mean corpuscular hemoglobin (MCH) determinationOrdered By: Deion Levy on 03-18-2025 MCH (RBC) [Entitic mass] 29.3 pg 27.0-32.0 [facility] Mean corpuscular hemoglobin concentration (MCHC) determinationOrdered By: Deionfreida Levy on 03-18-2025 MCHC (RBC) [Mass/Vol] 31.3 g/dL Low 32-36 [facility] Mean platelet volume determi nationOrdered By: Deionfreida Levy on 03-18-2025 Platelet mean volume (Bld) [Entitic vol] 10.4 fL 6.2-12.0 [facility] Measurement, pHOrdered By: Wenceslao Lee on 03-18-2025 pH (Unsp spec) 7.32 [pH] Low 7.35-7.45 [facility] Microbial respiratory cultur eOrdered By: Deion Levy on 03-18-2025 Microorganism identified Cx Nom (Unsp spec) or Staphylococcus aureus isolated. [facility] Microorganism identified Cx Nom (Unsp spec) or Staphylococcus aureus isolated. [facility] Microscopic analysis of urin e for red blood cells (RBC)Ordered By: Deion Levy on 03-18-2025 Microscopic analysis of urine for red blood cells (RBC) 0-5 SEEN /hpf 0-5 [facility] Monocyte percentageOrdered B y: Deion Levy on 03-18-2025 Monocytes/100 WBC (Bld) 7.0 % 0-10 [facility] Mucus LM Ql (Urine sed)Order ed By: Deion Levy on 03-18-2025 Mucus Ql (Urine sed) 0 SEEN /hpf [facility] Natriuretic peptide.B prohor mac N-Terminal [Mass/volume] in Serum or PlasmaOrdered By: Emili Lee on 03-18-2025 Natriuretic peptide.B prohormone N-Terminal [Mass/Vol] 2155 pg/mL High <1800 [facility] Comment on above: Heart Failure Unlike ly: < 300 pg/mLHeart Failure Likely< 50 Years: > 450 pg/mL50-75 Years: > 900 pg/mL>75 Years: > 1800 pg/mL Neutrophil percentageOrdered By: Deion Levy on 03-18-2025 Neutrophils/100 WBC (Bld) 84.3 % High 47-70 [facility] Nitrite Test strip Ql (U)Ord ered By: Deion Levy on 03-18-2025 Nitrite Ql (U) Negative Negative [facility] No Panel InformationOrdered By: Emili Lee on 03-18-2025 Bedside Blood Gas PEEP 5 [facility] Blood Gas Respiration Rate 14 [facility] Blood Gas Sample Site L Brach [facility] Blood Gas Specimen Type ART [facility] Blood Gas Tidal Volume 400.0 mL [facility] Blood Gas Vent Mode AC/VC [facility] Oxygen Delivery Device Adult Vent [facility] Nucleated red blood cell per centageOrdered By: Deion Levy on 03-18-2025 Nucleated RBC/100 WBC (Bld) [Ratio] 0 % 0-5 [facility] Osmolality urOrdered By: Ketan Lee on 03-18-2025 Osmolality (U) [Osmolality] 437 mOsm/KG >50 [facility] Partial Thromboplast Timeon 03-18-2025 aPTT Coag (Bld) [Time] 27.8 s Normal 24.1-36.2 [facility] Comment on above: Performed By: #### L 300.3900, L300.4310, L503.6005, M200.1000 ####[facility] [address] [place], [address] Platelet countOrdered By: Mai Levy on 03-18-2025 Platelets (Bld) [#/Vol] 218 10*3/uL 150-450 [facility] Potassium measurement (mass/ volume)Ordered By: Deion Levy on 03-18-2025 Potassium (Unsp spec) [Mass/Vol] 4.4 mmol/L 3.3-5.1 [facility] Pro- Brain NATRIURETIC PEPTI Rita 03-18-2025 Natriuretic peptide B (Bld) [Mass/Vol] 2155 pg/mL High <=1800 [facility] Comment on above: Result Comment: Hear t Failure Unlikely: < 300 pg/mLHeart Failure Likely< 50 Years: > 450 pg/mL50-75 Years: > 900 pg/mL>75 Years: > 1800 pg/mL Performed By: #### L 503.7507 ####[facility] [address] [place], [place], [id number] Procalcitonin [Mass/volume] in Serum or Plasma by ImmunoassayOrdered By: Emili Lee on 03-18-2025 Procalcitonin IA [Mass/Vol] 0.10 ng/mL <0.11 [facility] Comment on above: Interpretation:<0.10 -0.25 ng/mL: [...] Protein Ql (U) 30 mg/dl High Negative [facility] Prothrombin Time w/INRon INR Coag (PPP) [Relative time] 0.9 {INR} Normal [facility] Comment on above: Performed By: #### L 300.3900, L300.4310, L503.6005, M200.1000 ####[facility] [address] [place], [place], [id number] PT Coag (PPP) [Time] 12.4 s Normal 11.7-14.9 [facility] Comment on above: Performed By: #### L 300.3900, L300.4310, L503.6005, M200.1000 ####[facility] [address] [place], [address] Prothrombin timeOrdered By: Deion Levy on 03-18-2025 PT Coag (PPP) [Time] 12.4 s 11.7-14.9 [facility] RBC Auto (Bld) [#/Vol]Ordere d By: Deion Levy on 03-18-2025 RBC (Bld) [#/Vol] 5.40 10*6/uL 4.2-5.4 [facility] Random urine creatinine lisa urement (mass/volume)Ordered By: Emili Lee on 03-18-2025 Creatinine Unsp time (U) [Mass/Vol] 83.80 mg/dL 28.00-217.0 0 [facility] Respiratory pathogens detect ion panel by molecular detection methodOrdered By: Emili Lee on 03-18-2025 Respiratory pathogens DNA and RNA panel RANJIT+probe (Resp) [facility] Respiratory pathogens DNA and RNA panel RANJIT+probe (Resp) [facility] Serum creatinine measurement (mass/volume)Ordered By: Deion Levy on 03-18-2025 Creatinine [Mass/Vol] 2.22 mg/dL High 0.70-1.20 [facility] Serum globulin measurementOr dered By: Deion Levy on 03-18-2025 Globulin (S) [Mass/Vol] 3.6 g/dL 2.2-4.2 [facility] Serum glucose measurement (m ass/volume)Ordered By: Deion Levy on 03-18-2025 Glucose [Mass/Vol] 115 mg/dL High 70-99 [facility] Serum or plasma C reactive p rotein measurement (mass/volume)Ordered By: Emili Lee on 03-18-2025 CRP [Mass/Vol] 5.32 mg/L High 0.0-3.0 [facility] Serum or plasma alanine gao otransferase (ALT) measurementOrdered By: Deionfreida Levy on 03-18-2025 ALT [Catalytic activity/Vol] 61 U/L High <35 [facility] Serum or plasma albumin lisa urement (mass/volume)Ordered By: Deion Levy on 03-18-2025 Albumin [Mass/Vol] 4.1 g/dL 3.4-4.8 [facility] Serum or plasma albumin/glob ulin mass ratioOrdered By: Deion Levy on 03-18-2025 Albumin/Globulin [Mass ratio] 1.1 {ratio} 0.9-2.4 [facility] Serum or plasma alkaline bee sphatase measurementOrdered By: Deion Levy on 03-18-2025 ALP [Catalytic activity/Vol] 162 U/L High 35-104 [facility] Serum or plasma calcium lisa urement (mass/volume)Ordered By: Deion Levy on 03-18-2025 Calcium [Mass/Vol] 9.7 mg/dL 7.6-11.0 [facility] Serum or plasma creatine kin ase activityOrdered By: Claire Mayorga on 03-18-2025 CK [Catalytic activity/Vol] 137 U/L 24-195 [facility] Serum or plasma urea nitroge n measurement (mass/volume)Ordered By: Deion Levy on 03-18-2025 Urea nitrogen [Mass/Vol] 51 mg/dL High 4-19 [facility] Sodium levelOrdered By: Deion Levy on 03-18-2025 Sodium [Moles/Vol] 131 mmol/L Low 133-145 [facility] Squamous epithelial cells de tection in urine sediment by light microscopyOrdered By: Deion Levy on 03-18-2025 Epithelial cells.squamous LM Ql (Urine sed) 0-5 SEEN /hpf 5-10 [facility] TSH DL <= 0.005 mIU/L QnOrde red By: Deion Levy on 03-18-2025 TSH Qn 1.650 uIU/mL 0.300-4.200 [facility] Thyroid Stim Hormone (TSH)on 03-18-2025 TSH 1.650 uIU/mL Normal 0.300-4.200 [facility] Comment on above: Performed By: #### L 501.9559, L500.4050, L100.0100 ####[facility] [address] [place], [address] Total carbon dioxide measure mentOrdered By: Emili Lee on 03-18-2025 CO2 [Moles/Vol] 32 mmol/L [facility] Total proteinOrdered By: Deion Levy on 03-18-2025 Protein [Mass/Vol] 7.7 g/dL 5.9-8.4 [facility] Transitional cells detection in urine sediment by light microscopyOrdered By: Deion Levy on 03-18-2025 Transitional cells LM Ql (Urine sed) 0-5 SEEN /hpf 0-5 [facility] Triglycerides measurementOrd ered By: Claire Tierra on 03-18-2025 Triglyceride [Mass/Vol] 90 mg/dL <199 [facility] Comment on above: The drugs N-Acetylcy steine and Metamizole may falsely depress this assay. Normal range: <150 mg/dLBorderline High: 150-199 mg/dLHigh: 200-499 mg/dLVery High: >500 mg/dL Urinalysis, Completeon 03-18 BACTERIA 1+ /hpf Normal None Seen [facility] Comment on above: Order Comment: SOLITARIO TER SPECIMEN Performed By: #### L 400.0001 ####[facility] [address] [place], [address] EPI,TRANSITION 0-5 SEEN Normal 0-5 [facility] Comment on above: Order Comment: SOLITARIO TER SPECIMEN Performed By: #### L 400.0001 ####[facility] [address] [place], [address] WBC 0-5 SEEN Normal 0-5 [facility] Comment on above: Order Comment: SOLITARIO TER SPECIMEN Performed By: #### L 400.0001 ####[facility] [address] [place], [address] EPI,SQUAMOUS 0-5 SEEN Normal 5-10 [facility] Comment on above: Order Comment: SOLITARIO TER SPECIMEN Performed By: #### L 400.0001 ####[facility] [address] [place], [address] RBC 0-5 SEEN Normal 0-5 [facility] Comment on above: Order Comment: SOLITARIO TER SPECIMEN Performed By: #### L 400.0001 ####[facility] [address] [place], [address] Mucus Ql (Urine sed) [address] [facility] Comment on above: Order Comment: SOLITARIO PINK SPECIMEN Performed By: #### L 400.0001 ####[facility] [address] [place], [address] Urine clarityOrdered By: Deion Levy on 03-18-2025 Clarity (U) Clear Clear [facility] Urine color determinationOrd ered By: Deion Levy on 03-18-2025 Color (U) Yellow Yellow [facility] Urine cultureOrdered By: Deion Levy on 03-18-2025 Bacteria identified Cx Nom (U) Culture exhibits no growth. [facility] Bacteria identified Cx Nom (U) Culture exhibits no growth. [facility] Urine glucose detectionOrder ed By: Deion Levy on 03-18-2025 Glucose Ql (U) Normal mg/dl Normal [facility] Urine leukocyte esterase det ection by dipstickOrdered By: Deion Levy on 03-18-2025 Leukocyte esterase Test strip Ql (U) Negative Negative [facility] Urine pHOrdered By: Deion guan on 03-18-2025 pH (U) 6.0 [pH] 5.0 - 8.0 [facility] Urine potassium measurement (moles/volume)Ordered By: Emili Lee on 03-18-2025 Potassium (U) [Moles/Vol] 31.9 mmol/L Not Establ. [facility] Urine sediment bacteria coun t by microscopy (number/high power field)Ordered By: Deion Levy on 03-18-2025 Bacteria LM.HPF (Urine sed) [#/Area] 1 /[HPF] None Seen [facility] Urine sodium measurement (mo les/volume)Ordered By: Emili Lee on 03-18-2025 Sodium (U) [Moles/Vol] 28 mmol/L Not Establ. [facility] Urine specific gravity measu rementOrdered By: Deion Levy on 03-18-2025 Specific gravity (U) [Rel density] 1.015 1.002-1.030 [facility] Urine urobilinogen measureme ntOrdered By: Deion Levy on 03-18-2025 Urobilinogen Ql (U) Normal mg/dl Normal [facility] White blood cell (WBC) count Ordered By: Deion Levy on 03-18-2025 WBC (Bld) [#/Vol] 9.9 10*3/uL 4.4-11.0 [facility] White blood cell countOrdere d By: Deion Levy on 03-18-2025 White blood cell count 0-5 SEEN /hpf 0-5 [facility] CTA Chst, Abd, Pel W and/or WOon 03-17-2025 CTA Chst, Abd, Pel W and/or WO Normal [facility] Anion gap in Serum or Plasma Ordered By: Kamar Grimes on 03-10-2025 Anion gap [Moles/Vol] 12 mmol/L -15 [facility] BUN/creatinine ratioOrdered By: Kamar Grimes on 03-10-2025 Urea nitrogen/Creatinine [Mass ratio] 27.2 mg/mg High 10-20 [facility] Basic Metabolic Profile (BMP )on 03-10-2025 BUN/CRE 27.2 RATIO High 10-20 [facility] Comment on above: Order Comment: Order Date: 03/05/25Order Info: [id number]- - BMP Performed By: #### L 500.2500 ####[facility] [address] [place], [address] Calcium [Mass/Vol] 9.4 mg/dL Normal 7.6-11.0 [facility] Comment on above: Order Comment: Order Date: 03/05/25Order Info: [id number]- - BMP Performed By: #### L 500.2500 ####[facility] [address] [place] [place], [address] Chloride [Moles/Vol] 95 mmol/L Low 98-108 [facility] Comment on above: Order Comment: Order Date: 03/05/25Order Info: [id number]- - BMP Performed By: #### L 500.2500 ####[facility] [address] [place], [address] CO2 [Moles/Vol] 31.4 mmol/L Normal 21.0-32.0 [facility] Comment on above: Order Comment: Order Date: 03/05/25Order Info: [id number] - BMP Performed By: #### L 500.2500 ####[facility] [address] [place], [address] Creatinine [Mass/Vol] 1.03 mg/dL Normal 0.70-1.20 [facility] Comment on above: Order Comment: Order Date: 03/05/25Order Info: [id number] - BMP Performed By: #### L 500.2500 ####[facility] [address] [place], [address] GAP 12 Normal 5-15 [facility] Comment on above: Order Comment: Order Date: 03/05/25Order Info: 666-07 - BMP Performed By: #### L 500.2500 ####[facility] [address] [place], [address] GFR/1.73 sq M.predicted among non-blacks MDRD (S/P/Bld) [Vol rate/Area] 56 mL/min/{1.73_m2} Low >60 [facility] Comment on above: Order Comment: Order Date: 03/05/25Order Info: 666-07 - BMP Result Comment: mL/m in/1.73m2 CKD-EPI Creatinine Equation (2020) Performed By: #### L 500.2500 ####[facility] [address] [place], [address] Glucose [Mass/Vol] 79 mg/dL Normal 70-99 [facility] Comment on above: Order Comment: Order Date: 03/05/25Order Info: 666-07 - BMP Performed By: #### L 500.2500 ####[facility] [address] [place], [address] Potassium [Moles/Vol] 4.3 mmol/L Normal 3.3-5.1 [facility] Comment on above: Order Comment: Order Date: 03/05/25Order Info: [id number] - BMP Performed By: #### L 500.2500 ####[facility] [address] [place], [place], [address] Sodium [Moles/Vol] 138 mmol/L Normal 133-145 [facility] Comment on above: Order Comment: Order Date: 03/05/25Order Info: [id number] - BMP Performed By: #### L 500.2500 ####[facility] [address] [place], [address] Urea nitrogen [Mass/Vol] 28 mg/dL High 4-19 [facility] Comment on above: Order Comment: Order Date: 03/05/25Order Info: [id number]- - BMP Performed By: #### L 500.2500 ####[facility] [address] [place], [address] Carbon dioxide, total [Moles /volume] in Central venous bloodOrdered By: Kamar Grimes on 03-10-2025 CO2 [Moles/Vol] 31.4 mmol/L 21.0-32.0 [facility] Chloride assayOrdered By: Jennifer Grimes on 03-10-2025 Chloride [Moles/Vol] 95 mmol/L Low 98-108 [facility] Glomerular filtration rate ( GFR) estimation/1.73 sq m using serum, plasma, or whole bOrdered By: Kamar Grimes on 03-10-2025 GFR/1.73 sq M.predicted among non-blacks MDRD (S/P/Bld) [Vol rate/Area] 56 mL/min/{1.73_m2} Low >60 [facility] Comment on above: mL/min/1.73m2 CKD-EP I Creatinine Equation (2020) Potassium measurement (mass/ volume)Ordered By: Kamar Grimes on 03-10-2025 Potassium (Unsp spec) [Mass/Vol] 4.3 mmol/L 3.3-5.1 [facility] Serum creatinine measurement (mass/volume)Ordered By: Kamar Grimes on 03-10-2025 Creatinine [Mass/Vol] 1.03 mg/dL 0.70-1.20 [facility] Serum glucose measurement (m ass/volume)Ordered By: Kamar Grimes on 03-10-2025 Glucose [Mass/Vol] 79 mg/dL 70-99 [facility] Serum or plasma calcium lisa urement (mass/volume)Ordered By: Kamar Grimes on 03-10-2025 Calcium [Mass/Vol] 9.4 mg/dL 7.6-11.0 [facility] Serum or plasma urea nitroge n measurement (mass/volume)Ordered By: Kamar Grimes on 03-10-2025 Urea nitrogen [Mass/Vol] 28 mg/dL High 4-19 [facility] Sodium levelOrdered By: Kamar Grimes on 03-10-2025 Sodium [Moles/Vol] 138 mmol/L 133-145 [facility] Anion gap in Serum or Plasma Ordered By: Kamar Grimes on 03-04-2025 Anion gap [Moles/Vol] 10 mmol/L 5-15 [facility] BUN/creatinine ratioOrdered By: Kamar Grimes on 03-04-2025 Urea nitrogen/Creatinine [Mass ratio] 36.5 mg/mg High 10-20 [facility] Bilirubin, totalOrdered By: Kamar Grimes on 03-04-2025 Bilirubin [Mass/Vol] 0.35 mg/dL 0.00-1.30 [facility] Carbon dioxide, total [Moles /volume] in Central venous bloodOrdered By: Kamar Grimes on 03-04-2025 CO2 [Moles/Vol] 34.8 mmol/L High 21.0-32.0 [facility] Chloride assayOrdered By: Jennifer Grimes on 03-04-2025 Chloride [Moles/Vol] 95 mmol/L Low 98-108 [facility] Comprehensive Metabolic Prof ilon 03-04-2025 Albumin [Mass/Vol] 3.7 g/dL Normal 3.4-4.8 [facility] Comment on above: Order Comment: Order Date: 02/18/25Order Info: [id number] - CMPOrder Info: [id number] - MG Performed By: #### L 500.4050, L501.5200 ####[facility] [address] [place], [address] Albumin/Globulin [Mass ratio] 1.3 {ratio} Normal 0.9-2.4 [facility] Comment on above: Order Comment: Order Date: 02/18/25Order Info: [id number] - CMPOrder Info: [id number] - MG Performed By: #### L 500.4050, L501.5200 ####[facility] [address] [place], [address] ALK PHOS 125 U/L High 35-104 [facility] Comment on above: Order Comment: Order Date: 02/18/25Order Info: 86-1 - CMPOrder Info: [id number] - MG Performed By: #### L 500.4050, L501.5200 ####[facility] [address] [place], [address] ALT [Catalytic activity/Vol] 22 U/L Normal <=34 [facility] Comment on above: Order Comment: Order Date: 02/18/25Order Info: [id number] - CMPOrder Info: [id number] - MG Performed By: #### L 500.4050, L501.5200 ####[facility] [address] [place], [address] AST [Catalytic activity/Vol] 28 U/L Normal <=31 [facility] Comment on above: Order Comment: Order Date: 02/18/25Order Info: [id number] - CMPOrder Info: [id number] - MG Performed By: #### L 500.4050, L501.5200 ####[facility] [address] [place], [address] Bilirubin [Mass/Vol] 0.35 mg/dL Normal 0.00-1.30 [facility] Comment on above: Order Comment: Order Date: 02/18/25Order Info: [id number] - CMPOrder Info: [id number] - MG Performed By: #### L 500.4050, L501.5200 ####[facility] [address] [place], [address] BUN/CRE 36.5 RATIO High 10-20 [facility] Comment on above: Order Comment: Order Date: 02/18/25Order Info: [id number] - CMPOrder Info: [id number] - MG Performed By: #### L 500.4050, L501.5200 ####[facility] [address] [place], [address] Calcium [Mass/Vol] 9.2 mg/dL Normal 7.6-11.0 [facility] Comment on above: Order Comment: Order Date: 02/18/25Order Info: [id number] - CMPOrder Info: [id number] - MG Performed By: #### L 500.4050, L501.5200 ####[facility] [address] [place], [address] Chloride [Moles/Vol] 95 mmol/L Low 98-108 [facility] Comment on above: Order Comment: Order Date: 02/18/25Order Info: [id number] - CMPOrder Info: [id number] - MG Performed By: #### L 500.4050, L501.5200 ####[facility] [address] [place], [address] CO2 [Moles/Vol] 34.8 mmol/L High 21.0-32.0 [facility] Comment on above: Order Comment: Order Date: 02/18/25Order Info: [id number] - CMPOrder Info: [id number] - MG Performed By: #### L 500.4050, L501.5200 ####[facility] [address] [place], [address] Creatinine [Mass/Vol] 1.73 mg/dL High 0.70-1.20 [facility] Comment on above: Order Comment: Order Date: 02/18/25Order Info: [id number] - CMPOrder Info: [id number] - MG Performed By: #### L 500.4050, L501.5200 ####[facility] [address] [place], [address] GAP 10 Normal 5-15 [facility] Comment on above: Order Comment: Order Date: 02/18/25Order Info: [id number] - CMPOrder Info: [id number] - MG Performed By: #### L 500.4050, L501.5200 ####[facility] [address] [place], [address] GFR/1.73 sq M.predicted among non-blacks MDRD (S/P/Bld) [Vol rate/Area] 30 mL/min/{1.73_m2} Low >60 [facility] Comment on above: Order Comment: Order Date: 02/18/25Order Info: [id number] - CMPOrder Info: [id number] - MG Result Comment: mL/m in/1.73m2 CKD-EPI Creatinine Equation (2020) Performed By: #### L 500.4050, L501.5200 ####[facility] [address] [place], [address] Globulin (S) [Mass/Vol] 2.9 g/dL Normal 2.2-4.2 [facility] Comment on above: Order Comment: Order Date: 02/18/25Order Info: 0786-1 - CMPOrder Info: [id number] - MG Performed By: #### L 500.4050, L501.5200 ####[facility] [address] [place], [address] Glucose [Mass/Vol] 93 mg/dL Normal 70-99 [facility] Comment on above: Order Comment: Order Date: 02/18/25Order Info: 0786-1 - CMPOrder Info: [id number] - MG Performed By: #### L 500.4050, L501.5200 ####[facility] [address] [place], [address] Potassium [Moles/Vol] 4.0 mmol/L Normal 3.3-5.1 [facility] Comment on above: Order Comment: Order Date: 02/18/25Order Info: 0786-1 - CMPOrder Info: [id number] - MG Performed By: #### L 500.4050, L501.5200 ####[facility] [address] [place], [address] Sodium [Moles/Vol] 139 mmol/L Normal 133-145 [facility] Comment on above: Order Comment: Order Date: 02/18/25Order Info: 0786-1 - CMPOrder Info: [id number] - MG Performed By: #### L 500.4050, L501.5200 ####[facility] [address] [place], [address] T PROT 6.6 g/dL Normal 5.9-8.4 [facility] Comment on above: Order Comment: Order Date: 02/18/25Order Info: 0786-1 - CMPOrder Info: [id number] - MG Performed By: #### L 500.4050, L501.5200 ####[facility] [address] [place], [address] Urea nitrogen [Mass/Vol] 63 mg/dL High 4-19 [facility] Comment on above: Order Comment: Order Date: 02/18/25Order Info: 0786-1 - CMPOrder Info: [id number] - MG Performed By: #### L 500.4050, L501.5200 ####[facility] [address] [place], [address] Echo Complete W/ Contraston 03-04-2025 Echo Complete W/ Contrast Normal [facility] Echocardiogram study reportO rdered By: Carlene Salazar on 03-04-2025 Study report [facility] [address] [place] [address] Echo Complete W/ Contrast 03/04/25 0957 MR#: [id number] Acct: [id number] Name: OSCAR WOO Rep #:[id number] : 1950 75 From: Carlene Salazar MD Attending Dr: Dr. Kamar Grimes MD atus: REG CLI Ordering Dr: [...] Date Dictated: 03/04/25956 Date Transcribed: 03/04/25 1237 Clear[facility] Manager: Signed [facility] Work Phone: Glomerular filtration rate ( GFR) estimation/1.73 sq m using serum, plasma, or whole bOrdered By: Kamar Grimes on 03-04-2025 GFR/1.73 sq M.predicted among non-blacks MDRD (S/P/Bld) [Vol rate/Area] 30 mL/min/{1.73_m2} Low >60 [facility] Comment on above: mL/min/1.73m2 CKD-EP I Creatinine Equation (2020) Laboratory - Chemistry and C hemistry - challengeOrdered By: Kamar Grimes on 03-04-2025 AST [Catalytic activity/Vol] 28 U/L <32 [facility] Magnesiumon 03-04-2025 Magnesium [Mass/Vol] 1.9 mg/dL Normal 1.5-2.2 [facility] Comment on above: Order Comment: Order Date: 02/18/25Order Info: [id number] - CMPOrder Info: [id number] - MG Performed By: #### L 500.4050, L501.5200 ####[facility] [address] [place], [address] Magnesium measurement (mass/ volume)Ordered By: Kamar Grimes on 03-04-2025 Magnesium (Unsp spec) [Mass/Vol] 1.9 mg/dL 1.5-2.2 [facility] No Panel InformationOrdered By: Kamar Grimes on 03-04-2025 28 U/L <32 [facility] Potassium measurement (mass/ volume)Ordered By: Kamar Grimes on 03-04-2025 Potassium (Unsp spec) [Mass/Vol] 4.0 mmol/L 3.3-5.1 [facility] Serum creatinine measurement (mass/volume)Ordered By: Kamar Grimes on 03-04-2025 Creatinine [Mass/Vol] 1.73 mg/dL High 0.70-1.20 [facility] Serum globulin measurementOr dered By: Kamar Grimes on 03-04-2025 Globulin (S) [Mass/Vol] 2.9 g/dL 2.2-4.2 [facility] Serum glucose measurement (m ass/volume)Ordered By: Kamar Grimes on 03-04-2025 Glucose [Mass/Vol] 93 mg/dL 70-99 [facility] Serum or plasma alanine gao otransferase (ALT) measurementOrdered By: Kamar Grimes on 03-04-2025 ALT [Catalytic activity/Vol] 22 U/L <35 [facility] Serum or plasma albumin lisa urement (mass/volume)Ordered By: Kamar Grimes on 03-04-2025 Albumin [Mass/Vol] 3.7 g/dL 3.4-4.8 [facility] Serum or plasma albumin/glob ulin mass ratioOrdered By: Kamar Grimes on 03-04-2025 Albumin/Globulin [Mass ratio] 1.3 {ratio} 0.9-2.4 [facility] Serum or plasma alkaline bee sphatase measurementOrdered By: Kamar Grimes on 03-04-2025 ALP [Catalytic activity/Vol] 125 U/L High 35-104 [facility] Serum or plasma calcium lisa urement (mass/volume)Ordered By: Kamar Grimes on 03-04-2025 Calcium [Mass/Vol] 9.2 mg/dL 7.6-11.0 [facility] Serum or plasma urea nitroge n measurement (mass/volume)Ordered By: Kamar Grimes on 03-04-2025 Urea nitrogen [Mass/Vol] 63 mg/dL High 4-19 [facility] Sodium levelOrdered By: Kamar Grimes on 03-04-2025 Sodium [Moles/Vol] 139 mmol/L 133-145 [facility] Total proteinOrdered By: Esmer Grimes on 03-04-2025 Protein [Mass/Vol] 6.6 g/dL 5.9-8.4 [facility] Acid Fast Bacillus Cultureon 02-19-2025 tAFBC Normal [facility] Comment on above: Performed By: #### M 100.4001, M100.2900, M100.2000, M300.3000, L200.0400, M600.2000, M300.2000 ####[facility] [address] [place], [address] Acid Fast Bacillus Smear/Flu oron 02-19-2025 tafb Normal [facility] Comment on above: Performed By: #### M 100.4001, M100.2900, M100.2000, M300.3000, L200.0400, M600.2000, M300.2000 ####[facility] [address] [place], [address] Culture, Fungus 8482on 02-19 CUF Normal [facility] Comment on above: Performed By: #### M 100.4001, M100.2900, M100.2000, M300.3000, L200.0400, M600.2000, M300.2000 ####[facility] [address] [place], [address] Absolute lymphocyte countOrd ered By: Kamar Grimes on 02-10-2025 Lymphocytes Auto (Unsp spec) [#/Vol] 1.51 10*3/uL 0.83-4.51 [facility] Absolute neutrophil countOrd ered By: Kamar Grimes on 02-10-2025 Neutrophils (Bld) [#/Vol] 7.4 10*3/uL 2.0-7.7 [facility] Anion gap in Serum or Plasma Ordered By: Kamar Grimes on 02-10-2025 Anion gap [Moles/Vol] 14 mmol/L 5-15 [facility] Automated lymphocyte count a s percentage of total leukocytesOrdered By: Kamar Grimes on 02-10-2025 Lymphocytes/100 WBC Auto (Unsp spec) 15.2 % Low 19-41 [facility] BUN/creatinine ratioOrdered By: Kamar Grimes on 02-10-2025 Urea nitrogen/Creatinine [Mass ratio] 26.9 mg/mg High 10-20 [facility] Basophil percentageOrdered B y: Kamar Grimes on 02-10-2025 Basophils/100 WBC (Bld) 0.5 % 0-1 [facility] Bilirubin, totalOrdered By: Kamar Grimes on 02-10-2025 Bilirubin [Mass/Vol] 0.39 mg/dL 0.00-1.30 [facility] CBC W/Diff, Automatedon 01-31 Absolute Lymph 1.51 X10 3/uL Normal 0.83-4.51 [facility] Comment on above: Order Comment: Order Date: 02/10/25Order Info: 0184-1 - CBCD Performed By: #### L 500.4050, L501.5200, L100.0100 ####[facility] [address] [place], [address] Absolute Neut 7.4 X10 3/uL Normal 2.0-7.7 [facility] Comment on above: Order Comment: Order Date: 02/10/25Order Info: 0184-1 - CBCD Performed By: #### L 500.4050, L501.5200, L100.0100 ####[facility] [address] [place], [address] Basophils/100 WBC (Bld) 0.5 % Normal 0-1 [facility] Comment on above: Order Comment: Order Date: 02/10/25Order Info: 0184-1 - CBCD Performed By: #### L 500.4050, L501.5200, L100.0100 ####[facility] [address] [place], [address] Eosinophils/100 WBC (Bld) 2.4 % Normal 0-5 [facility] Comment on above: Order Comment: Order Date: 02/10/25Order Info: 0184-1 - CBCD Performed By: #### L 500.4050, L501.5200, L100.0100 ####[facility] [address] [place], [address] Erythrocyte distribution width (RBC) [Ratio] 13.6 % Normal 11.6-14.6 [facility] Comment on above: Order Comment: Order Date: 02/10/25Order Info: 0184-1 - CBCD Performed By: #### L 500.4050, L501.5200, L100.0100 ####[facility] [address] [place], [address] Hematocrit (Bld) [Volume fraction] 43.3 % Normal 37-47 [facility] Comment on above: Order Comment: Order Date: 02/10/25Order Info: 018-1 - CBCD Performed By: #### L 500.4050, L501.5200, L100.0100 ####[facility] [address] [place], [address] Hemoglobin (Bld) [Mass/Vol] 13.7 g/dL Normal 12.0-15.0 [facility] Comment on above: Order Comment: Order Date: 02/10/25Order Info: 0184-1 - CBCD Performed By: #### L 500.4050, L501.5200, L100.0100 ####[facility] [address] [place], [address] IG% 0.400 Normal 0.0-0.9 [facility] Comment on above: Order Comment: Order Date: 02/10/25Order Info: 0184-1 - CBCD Result Comment: IG% - Immature Granulocytes (promyelocytes, myelocytes andmetamyelocytes) > 1% indicates that a LEFT SHIFT is Present. Performed By: #### L 500.4050, L501.5200, L100.0100 ####[facility] [address] [place], [address] Lymphocytes/100 WBC (Bld) 15.2 % Low 19-41 [facility] Comment on above: Order Comment: Order Date: 02/10/25Order Info: 0184-1 - CBCD Performed By: #### L 500.4050, L501.5200, L100.0100 ####[facility] [address] [place], [address] MCH (RBC) [Entitic mass] 29.1 pg Normal 27.0-32.0 [facility] Comment on above: Order Comment: Order Date: 02/10/25Order Info: 0184-1 - CBCD Performed By: #### L 500.4050, L501.5200, L100.0100 ####[facility] [address] [place], [address] MCHC (RBC) [Mass/Vol] 31.6 g/dL Low 32-36 [facility] Comment on above: Order Comment: Order Date: 02/10/25Order Info: 0184-1 - CBCD Performed By: #### L 500.4050, L501.5200, L100.0100 ####[facility] [address] [place], [address] MCV (RBC) [Entitic vol] 92.1 fL Normal 81-99 [facility] Comment on above: Order Comment: Order Date: 02/10/25Order Info: 0184-1 - CBCD Performed By: #### L 500.4050, L501.5200, L100.0100 ####[facility] [address] [place], [address] Monocytes/100 WBC (Bld) 7.3 % Normal 0-10 [facility] Comment on above: Order Comment: Order Date: 02/10/25Order Info: 0184-1 - CBCD Performed By: #### L 500.4050, L501.5200, L100.0100 ####[facility] [address] [place], [address] Neutrophils/100 WBC (Bld) 74.2 % High 47-70 [facility] Comment on above: Order Comment: Order Date: 02/10/25Order Info: 4-1 - CBCD Performed By: #### L 500.4050, L501.5200, L100.0100 ####[facility] [address] [place], [address] Nucleated RBC (Bld) [#/Vol] 0 10*3/uL Normal 0-5 [facility] Comment on above: Order Comment: Order Date: 02/10/25Order Info: 018- - CBCD Performed By: #### L 500.4050, L501.5200, L100.0100 ####[facility] [address] [place], [address] Platelet mean volume (Bld) [Entitic vol] 10.8 fL Normal 6.2-12.0 [facility] Comment on above: Order Comment: Order Date: 02/10/25Order Info: 018-1 - CBCD Performed By: #### L 500.4050, L501.5200, L100.0100 ####[facility] [address] [place], [address] Platelets (Bld) [#/Vol] 166 10*3/uL Normal 150-450 [facility] Comment on above: Order Comment: Order Date: 02/10/25Order Info: 0184-1 - CBCD Performed By: #### L 500.4050, L501.5200, L100.0100 ####[facility] [address] [place], [address] RBC (Bld) [#/Vol] 4.70 10*6/uL Normal 4.2-5.4 [facility] Comment on above: Order Comment: Order Date: 02/10/25Order Info: 0184-1 - CBCD Performed By: #### L 500.4050, L501.5200, L100.0100 ####[facility] [address] [place], [address] RDW SD 45.9 fl High 35.1-43.9 [facility] Comment on above: Order Comment: Order Date: 02/10/25Order Info: 0184- - CBCD Performed By: #### L 500.4050, L501.5200, L100.0100 ####[facility] [address] [place], [address] WBC (Bld) [#/Vol] 9.9 10*3/uL Normal 4.4-11.0 [facility] Comment on above: Order Comment: Order Date: 02/10/25Order Info: 0184-1 - CBCD Performed By: #### L 500.4050, L501.5200, L100.0100 ####[facility] [address] [place], [address] Carbon dioxide, total [Moles /volume] in Central venous bloodOrdered By: Kamar Grimes on 02-10-2025 CO2 [Moles/Vol] 29.4 mmol/L 21.0-32.0 [facility] Chest PA and Lateralon 02-10 Chest PA and Lateral Normal [facility] Chloride assayOrdered By: Jennifer Grimes on 02-10-2025 Chloride [Moles/Vol] 96 mmol/L Low 98-108 [facility] Comprehensive Metabolic Prof ilon 02-10-2025 Albumin [Mass/Vol] 3.9 g/dL Normal 3.4-4.8 [facility] Comment on above: Order Comment: Order Date: 02/10/25Order Info: 0786-1 - CMPOrder Info: [id number] - MG Performed By: #### L 500.4050, L501.5200, L100.0100 ####[facility] [address] [place], [address] Albumin/Globulin [Mass ratio] 1.3 {ratio} Normal 0.9-2.4 [facility] Comment on above: Order Comment: Order Date: 02/10/25Order Info: 0786-1 - CMPOrder Info: [id number] - MG Performed By: #### L 500.4050, L501.5200, L100.0100 ####[facility] [address] [place], [address] ALK PHOS 147 U/L High 35-104 [facility] Comment on above: Order Comment: Order Date: 02/10/25Order Info: 0786-1 - CMPOrder Info: [id number] - MG Performed By: #### L 500.4050, L501.5200, L100.0100 ####[facility] [address] [place], [address] ALT [Catalytic activity/Vol] 27 U/L Normal <=34 [facility] Comment on above: Order Comment: Order Date: 02/10/25Order Info: 0786-1 - CMPOrder Info: [id number] - MG Performed By: #### L 500.4050, L501.5200, L100.0100 ####[facility] [address] [place], [address] AST [Catalytic activity/Vol] 36 U/L High <=31 [facility] Comment on above: Order Comment: Order Date: 02/10/25Order Info: 0786-1 - CMPOrder Info: [id number] - MG Performed By: #### L 500.4050, L501.5200, L100.0100 ####[facility] [address] [place], [address] Bilirubin [Mass/Vol] 0.39 mg/dL Normal 0.00-1.30 [facility] Comment on above: Order Comment: Order Date: 02/10/25Order Info: 0786-1 - CMPOrder Info: [id number] - MG Performed By: #### L 500.4050, L501.5200, L100.0100 ####[facility] [address] [place], [address] BUN/CRE 26.9 RATIO High 10-20 [facility] Comment on above: Order Comment: Order Date: 02/10/25Order Info: [id number] - CMPOrder Info: [id number] - MG Performed By: #### L 500.4050, L501.5200, L100.0100 ####[facility] [address] [place], [address] Calcium [Mass/Vol] 9.8 mg/dL Normal 7.6-11.0 [facility] Comment on above: Order Comment: Order Date: 02/10/25Order Info: [id number] - CMPOrder Info: [id number] - MG Performed By: #### L 500.4050, L501.5200, L100.0100 ####[facility] [address] [place], [address] Chloride [Moles/Vol] 96 mmol/L Low 98-108 [facility] Comment on above: Order Comment: Order Date: 02/10/25Order Info: [id number] - CMPOrder Info: [id number] - MG Performed By: #### L 500.4050, L501.5200, L100.0100 ####[facility] [address] [place], [address] CO2 [Moles/Vol] 29.4 mmol/L Normal 21.0-32.0 [facility] Comment on above: Order Comment: Order Date: 02/10/25Order Info: [id number] - CMPOrder Info: [id number] - MG Performed By: #### L 500.4050, L501.5200, L100.0100 ####[facility] [address] [place], [address] Creatinine [Mass/Vol] 0.99 mg/dL Normal 0.70-1.20 [facility] Comment on above: Order Comment: Order Date: 02/10/25Order Info: [id number] - CMPOrder Info: [id number] - MG Performed By: #### L 500.4050, L501.5200, L100.0100 ####[facility] [address] [place], [address] GAP 14 Normal 5-15 [facility] Comment on above: Order Comment: Order Date: 02/10/25Order Info: [id number] - CMPOrder Info: [id number] - MG Performed By: #### L 500.4050, L501.5200, L100.0100 ####[facility] [address] [place], [address] GFR/1.73 sq M.predicted among non-blacks MDRD (S/P/Bld) [Vol rate/Area] 59 mL/min/{1.73_m2} Low >60 [facility] Comment on above: Order Comment: Order Date: 02/10/25Order Info: [id number] - CMPOrder Info: [id number] - MG Result Comment: mL/m in/1.73m2 CKD-EPI Creatinine Equation (2020) Performed By: #### L 500.4050, L501.5200, L100.0100 ####[facility] [address] [place], [address] Globulin (S) [Mass/Vol] 3.1 g/dL Normal 2.2-4.2 [facility] Comment on above: Order Comment: Order Date: 02/10/25Order Info: [id number] - CMPOrder Info: [id number] - MG Performed By: #### L 500.4050, L501.5200, L100.0100 ####[facility] [address] [place], [address] Glucose [Mass/Vol] 101 mg/dL High 70-99 [facility] Comment on above: Order Comment: Order Date: 02/10/25Order Info: [id number] - CMPOrder Info: [id number] - MG Performed By: #### L 500.4050, L501.5200, L100.0100 ####[facility] [address] [place], [address] Potassium [Moles/Vol] 4.4 mmol/L Normal 3.3-5.1 [facility] Comment on above: Order Comment: Order Date: 02/10/25Order Info: [id number]- - CMPOrder Info: [id number] - MG Performed By: #### L 500.4050, L501.5200, L100.0100 ####[facility] [address] [place], [address] Sodium [Moles/Vol] 140 mmol/L Normal 133-145 [facility] Comment on above: Order Comment: Order Date: 02/10/25Order Info: [id number]- - CMPOrder Info: [id number] - MG Performed By: #### L 500.4050, L501.5200, L100.0100 ####[facility] [address] [place], [address] T PROT 7.0 g/dL Normal 5.9-8.4 [facility] Comment on above: Order Comment: Order Date: 02/10/25Order Info: [id number] - CMPOrder Info: [id number] - MG Performed By: #### L 500.4050, L501.5200, L100.0100 ####[facility] [address] [place], [address] Urea nitrogen [Mass/Vol] 27 mg/dL High 4-19 [facility] Comment on above: Order Comment: Order Date: 02/10/25Order Info: [id number] - CMPOrder Info: [id number] - MG Performed By: #### L 500.4050, L501.5200, L100.0100 ####[facility] [address] [place], [address] Eosinophil percentageOrdered By: Kamar Grimes on 02-10-2025 Eosinophils/100 WBC (Bld) 2.4 % 0-5 [facility] Erythrocyte distribution wid th ratioOrdered By: Kamar Grimes on 02-10-2025 Erythrocyte distribution width (RBC) [Ratio] 13.6 % 11.6-14.6 [facility] Erythrocyte distribution wid th standard deviationOrdered By: Kmaar Grimes on 02-10-2025 Erythrocyte distribution width (RBC) [Ratio] 45.9 fl High 35.1-43.9 [facility] Glomerular filtration rate ( GFR) estimation/1.73 sq m using serum, plasma, or whole bOrdered By: Kamar Grimes on 02-10-2025 GFR/1.73 sq M.predicted among non-blacks MDRD (S/P/Bld) [Vol rate/Area] 59 mL/min/{1.73_m2} Low >60 [facility] Comment on above: mL/min/1.73m2 CKD-EP I Creatinine Equation (2020) Hematocrit Auto (Bld) [Volum e fraction]Ordered By: Kamar Grimes on 02-10-2025 Hematocrit (Bld) [Volume fraction] 43.3 % 37-47 [facility] Hemoglobin measurementOrdere d By: Kamar Grimes on 02-10-2025 Hemoglobin (Bld) [Mass/Vol] 13.7 g/dL 12.0-15.0 [facility] Immature granulocytes/100 WB C Auto (Bld)Ordered By: Kamar Grimes on 02-10-2025 Immature granulocytes/100 WBC (Bld) 0.400 % 0.0-0.9 [facility] Comment on above: IG% - Immature Granu locytes (promyelocytes, myelocytes and metamyelocytes) > 1% indicates that a LEFT SHIFT is Present. Laboratory - Chemistry and C hemistry - challengeOrdered By: Kamar Grimes on 08-11-2025 AST [Catalytic activity/Vol] 36 U/L High <32 [facility] MCV (mean corpuscular volume ) determinationOrdered By: Kamar Grimes on 02-10-2025 MCV (RBC) [Entitic vol] 92.1 fL 81-99 [facility] Magnesiumon 02-10-2025 Magnesium [Mass/Vol] 1.7 mg/dL Normal 1.5-2.2 [facility] Comment on above: Order Comment: Order Date: 02/10/25Order Info: [id number] - CMPOrder Info: [id number] - MG Performed By: #### L 500.4050, L501.5200, L100.0100 ####[facility] [address] [place], [place], [id number] Magnesium measurement (mass/ volume)Ordered By: Kamra Grimes on 02-10-2025 Magnesium (Unsp spec) [Mass/Vol] 1.7 mg/dL 1.5-2.2 [facility] Mean corpuscular hemoglobin (MCH) determinationOrdered By: Kamar Grimes on 02-10-2025 MCH (RBC) [Entitic mass] 29.1 pg 27.0-32.0 [facility] Mean corpuscular hemoglobin concentration (MCHC) determinationOrdered By: Kamar Grimes on 02-10-2025 MCHC (RBC) [Mass/Vol] 31.6 g/dL Low 32-36 [facility] Mean platelet volume determi nationOrdered By: Kamar Grimes on 02-10-2025 Platelet mean volume (Bld) [Entitic vol] 10.8 fL 6.2-12.0 [facility] Monocyte percentageOrdered B y: Kamar Grimes on 02-10-2025 Monocytes/100 WBC (Bld) 7.3 % 0-10 [facility] Natriuretic peptide.B prohor mac N-Terminal [Mass/volume] in Serum or PlasmaOrdered By: Kamar Grimes on 02-10-2025 Natriuretic peptide.B prohormone N-Terminal [Mass/Vol] 1101 pg/mL <1800 [facility] Comment on above: Heart Failure Unlike ly: < 300 pg/mLHeart Failure Likely< 50 Years: > 450 pg/mL50-75 Years: > 900 pg/mL>75 Years: > 1800 pg/mL Neutrophil percentageOrdered By: Kamar Grimes on 02-10-2025 Neutrophils/100 WBC (Bld) 74.2 % High 47-70 [facility] No Panel InformationOrdered By: Kamar Grimes on 02-10-2025 36 U/L High <32 [facility] Nucleated red blood cell per centageOrdered By: Kamar Grimes on 02-10-2025 Nucleated RBC/100 WBC (Bld) [Ratio] 0 % 0-5 [facility] Platelet countOrdered By: Jennifer Grimes on 02-10-2025 Platelets (Bld) [#/Vol] 166 10*3/uL 150-450 [facility] Potassium measurement (mass/ volume)Ordered By: Kamar Grimes on 02-10-2025 Potassium (Unsp spec) [Mass/Vol] 4.4 mmol/L 3.3-5.1 [facility] Pro- Brain NATRIURETIC PEPTI Rita 02-10-2025 Natriuretic peptide B (Bld) [Mass/Vol] 1101 pg/mL Normal <=1800 [facility] Comment on above: Order Comment: Order Date: 02/10/25Order Info: [id number] - CMPOrder Info: [id number] - MG Result Comment: Hear t Failure Unlikely: < 300 pg/mLHeart Failure Likely< 50 Years: > 450 pg/mL50-75 Years: > 900 pg/mL>75 Years: > 1800 pg/mL Performed By: #### L 503.7505 ####[facility] [address] [place], [place], [id number] RBC Auto (Bld) [#/Vol]Ordere d By: Kamar Grimes on 02-10-2025 RBC (Bld) [#/Vol] 4.70 10*6/uL 4.2-5.4 [facility] Serum creatinine measurement (mass/volume)Ordered By: Kamar Grimes on 02-10-2025 Creatinine [Mass/Vol] 0.99 mg/dL 0.70-1.20 [facility] Serum globulin measurementOr dered By: Kamar Grimes on 02-10-2025 Globulin (S) [Mass/Vol] 3.1 g/dL 2.2-4.2 [facility] Serum glucose measurement (m ass/volume)Ordered By: Kamar Grimes on 02-10-2025 Glucose [Mass/Vol] 101 mg/dL High 70-99 [facility] Serum or plasma alanine gao otransferase (ALT) measurementOrdered By: Kamar Grimes on 02-10-2025 ALT [Catalytic activity/Vol] 27 U/L <35 [facility] Serum or plasma albumin lisa urement (mass/volume)Ordered By: Kamar Grimes on 02-10-2025 Albumin [Mass/Vol] 3.9 g/dL 3.4-4.8 [facility] Serum or plasma albumin/glob ulin mass ratioOrdered By: Kamar Grimes on 02-10-2025 Albumin/Globulin [Mass ratio] 1.3 {ratio} 0.9-2.4 [facility] Serum or plasma alkaline bee sphatase measurementOrdered By: Kamar Grimes on 02-10-2025 ALP [Catalytic activity/Vol] 147 U/L High 35-104 [facility] Serum or plasma calcium lisa urement (mass/volume)Ordered By: Kamar Grimes on 02-10-2025 Calcium [Mass/Vol] 9.8 mg/dL 7.6-11.0 [facility] Serum or plasma urea nitroge n measurement (mass/volume)Ordered By: Kamar Grimes on 02-10-2025 Urea nitrogen [Mass/Vol] 27 mg/dL High 4-19 [facility] Sodium levelOrdered By: Kamar Grimes on 02-10-2025 Sodium [Moles/Vol] 140 mmol/L 133-145 [facility] Total proteinOrdered By: Esmer Grimes on 02-10-2025 Protein [Mass/Vol] 7.0 g/dL 5.9-8.4 [facility] White blood cell (WBC) count Ordered By: Kamar Grimes on 02-10-2025 WBC (Bld) [#/Vol] 9.9 10*3/uL 4.4-11.0 [facility] Acid Fast Bacillus Cultureon 12-06-2024 tAFBC Normal [facility] Comment on above: Performed By: #### M 100.3000, M300.2000, M600.2200, M300.3000, M100.2000, M600.2000, M100.4001 ####[facility] [address] [place], [address] Acid Fast Bacillus Smear/Flu oron 11-06-2024 tafb Normal [facility] Comment on above: Performed By: #### M 100.3000, M300.2000, M600.2200, M300.3000, M100.2000, M600.2000, M100.4001 ####[facility] [address] [place], [address] Culture, Fungus 8482on 11-[address] [facility] Comment on above: Performed By: #### M 100.3000, M300.2000, M600.2200, M300.3000, M100.2000, M600.2000, M100.4001 ####[facility] [address] [place], [address] Fungus Stain 8136on 11-07-19 25 FUNST Normal [facility] Comment on above: Performed By: #### M 100.3000, M300.2000, M600.2200, M300.3000, M100.2000, M600.2000, M100.4001 ####[facility] [address] [place], [address] Basic Metabolic Profile (BMP )on 10-31-2024 BUN Normal - [facility] Comment on above: Result Comment: Canc elled via OM: Order cancelled - Patient discharged Performed By: #### L 100.0100, L500.2500 ####[facility] [address] [place], [address] BUN/CRE Normal - [facility] Comment on above: Result Comment: Canc elled via OM: Order cancelled - Patient discharged Performed By: #### L 100.0100, L500.2500 ####[facility] [address] [place], [address] Calcium Normal 7.6-11.0 [facility] Comment on above: Result Comment: Canc elled via OM: Order cancelled - Patient discharged Performed By: #### L 100.0100, L500.2500 ####[facility] [address] [place], [address] CL Normal 98-108 [facility] Comment on above: Result Comment: Canc elled via OM: Order cancelled - Patient discharged Performed By: #### L 100.0100, L500.2500 ####[facility] [address] [place], [address] CO2 Normal 21.0-32.0 [facility] Comment on above: Result Comment: Canc elled via OM: Order cancelled - Patient discharged Performed By: #### L 100.0100, L500.2500 ####[facility] [address] [place], [address] CREAT,SERUM Normal 0.70-1.20 [facility] Comment on above: Result Comment: Canc elled via OM: Order cancelled - Patient discharged Performed By: #### L 100.0100, L500.2500 ####[facility] [address] [place], [address] eGFR Normal >60 [facility] Comment on above: Result Comment: Canc elled via OM: Order cancelled - Patient discharged Performed By: #### L 100.0100, L500.2500 ####[facility] [address] [place], [address] GAP Normal 5-15 [facility] Comment on above: Result Comment: Canc elled via OM: Order cancelled - Patient discharged Performed By: #### L 100.0100, L500.2500 ####[facility] [address] [place], [address] GLU Normal 70-99 [facility] Comment on above: Result Comment: Canc elled via OM: Order cancelled - Patient discharged Performed By: #### L 100.0100, L500.2500 ####[facility] [address] [place], [address] Potassium Normal 3.3-5.1 [facility] Comment on above: Result Comment: Canc elled via OM: Order cancelled - Patient discharged Performed By: #### L 100.0100, L500.2500 ####[facility] [address] [place], [address] Basic Metabolic Profile (BMP) Normal 133-145 [facility] Comment on above: Result Comment: Canc elled via OM: Order cancelled - Patient discharged Performed By: #### L 100.0100, L500.2500 ####[facility] [address] [place], [address] CBC W/Diff, Automatedon 05-0 Absolute Neut Normal 2.0-7.7 [facility] Comment on above: Result Comment: Canc elled via OM: Order cancelled - Patient discharged Performed By: #### L 100.0100, L500.2500 ####[facility] [address] [place], [address] HCT Normal 37-47 [facility] Comment on above: Result Comment: Canc elled via OM: Order cancelled - Patient discharged Performed By: #### L 100.0100, L500.2500 ####[facility] [address] [place], [address] HGB Normal 12.0-15.0 [facility] Comment on above: Result Comment: Canc elled via OM: Order cancelled - Patient discharged Performed By: #### L 100.0100, L500.2500 ####[facility] [address] [place], [address] MCH Normal 27.0-32.0 [facility] Comment on above: Result Comment: Canc elled via OM: Order cancelled - Patient discharged Performed By: #### L 100.0100, L500.2500 ####[facility] [address] [place], [address] MCHC Normal 32-36 [facility] Comment on above: Result Comment: Canc elled via OM: Order cancelled - Patient discharged Performed By: #### L 100.0100, L500.2500 ####[facility] [address] [place], [address] MCV Normal 81-99 [facility] Comment on above: Result Comment: Canc elled via OM: Order cancelled - Patient discharged Performed By: #### L 100.0100, L500.2500 ####[facility] [address] [place], [address] NEUT% Normal 47-70 [facility] Comment on above: Result Comment: Canc elled via OM: Order cancelled - Patient discharged Performed By: #### L 100.0100, L500.2500 ####[facility] [address] [place], [address] PLT Normal 150-450 [facility] Comment on above: Result Comment: Canc elled via OM: Order cancelled - Patient discharged Performed By: #### L 100.0100, L500.2500 ####[facility] [address] [place], [address] RBC Normal 4.2-5.4 [facility] Comment on above: Result Comment: Canc elled via OM: Order cancelled - Patient discharged Performed By: #### L 100.0100, L500.2500 ####[facility] [address] [place], [address] RDW CV Normal 11.6-14.6 [facility] Comment on above: Result Comment: Canc elled via OM: Order cancelled - Patient discharged Performed By: #### L 100.0100, L500.2500 ####[facility] [address] [place], [address] RDW SD Normal 35.1-43.9 [facility] Comment on above: Result Comment: Canc elled via OM: Order cancelled - Patient discharged Performed By: #### L 100.0100, L500.2500 ####[facility] [address] [place], [address] WBC Normal 4.4-11.0 [facility] Comment on above: Result Comment: Canc elled via OM: Order cancelled - Patient discharged Performed By: #### L 100.0100, L500.2500 ####[facility] [address] [place], [address] Acid Fast Bacillus Cultureon 10-30-[address] [facility] Comment on above: Performed By: #### M 100.4001, M600.2000, M300.2000, M300.3000, M100.2000, M100.3000, M600.2200 ####[facility] [address] [place], [address] [facility] Comment on above: Performed By: #### M 100.2000, M600.2200, M300.2000, M100.3000, M300.3000, M600.2000, M100.4001 ####[facility] [address] [place], [address] Acid Fast Bacillus Smear/Flu oron 10-30-[address] [facility] Comment on above: Performed By: #### M 100.4001, M600.2000, M300.2000, M300.3000, M100.2000, M100.3000, M600.2200 ####[facility] [address] [place], [address] [facility] Comment on above: Performed By: #### M 100.2000, M600.2200, M300.2000, M100.3000, M300.3000, M600.2000, M100.4001 ####[facility] [address] [place], [address] Culture, Fungus 8482on 10-[address] [facility] Comment on above: Performed By: #### M 100.4001, M600.2000, M300.2000, M300.3000, M100.2000, M100.3000, M600.2200 ####[facility] [address] [place], [address] [facility] Comment on above: Performed By: #### M 100.2000, M600.2200, M300.2000, M100.3000, M300.3000, M600.2000, M100.4001 ####[facility] [address] [place], [address] Fungus Stain 8136on 10-31-19 [facility] Comment on above: Performed By: #### M 100.4001, M600.2000, M300.2000, M300.3000, M100.2000, M100.3000, M600.2200 ####[facility] [address] [place], [address] [facility] Comment on above: Performed By: #### M 100.2000, M600.2200, M300.2000, M100.3000, M300.3000, M600.2000, M100.4001 ####[facility] [address] [place], [address] Basic Metabolic Profile (BMP )on 10-24-2024 BUN Normal 4-19 [facility] Comment on above: Result Comment: Canc elled via OM: Order cancelled - Patient discharged Performed By: #### L 500.2500, L100.0100 ####[facility] [address] [place], [address] BUN/CRE Normal 10-20 [facility] Comment on above: Result Comment: Canc elled via OM: Order cancelled - Patient discharged Performed By: #### L 500.2500, L100.0100 ####[facility] [address] [place], [address] Calcium Normal 7.6-11.0 [facility] Comment on above: Result Comment: Canc elled via OM: Order cancelled - Patient discharged Performed By: #### L 500.2500, L100.0100 ####[facility] [address] [place], [address] CL Normal 98-108 [facility] Comment on above: Result Comment: Canc elled via OM: Order cancelled - Patient discharged Performed By: #### L 500.2500, L100.0100 ####[facility] [address] [place], [address] CO2 Normal 21.0-32.0 [facility] Comment on above: Result Comment: Canc elled via OM: Order cancelled - Patient discharged Performed By: #### L 500.2500, L100.0100 ####[facility] [address] [place], [address] CREAT,SERUM Normal 0.70-1.20 [facility] Comment on above: Result Comment: Canc elled via OM: Order cancelled - Patient discharged Performed By: #### L 500.2500, L100.0100 ####[facility] [address] [place], [address] eGFR Normal >60 [facility] Comment on above: Result Comment: Canc elled via OM: Order cancelled - Patient discharged Performed By: #### L 500.2500, L100.0100 ####[facility] [address] [place], [address] GAP Normal 5-15 [facility] Comment on above: Result Comment: Canc elled via OM: Order cancelled - Patient discharged Performed By: #### L 500.2500, L100.0100 ####[facility] [address] [place], [address] GLU Normal 70-99 [facility] Comment on above: Result Comment: Canc elled via OM: Order cancelled - Patient discharged Performed By: #### L 500.2500, L100.0100 ####[facility] [address] [place], [address] Potassium Normal 3.3-5.1 [facility] Comment on above: Result Comment: Canc elled via OM: Order cancelled - Patient discharged Performed By: #### L 500.2500, L100.0100 ####[facility] [address] [place], [address] Basic Metabolic Profile (BMP) Normal 133-145 [facility] Comment on above: Result Comment: Canc elled via OM: Order cancelled - Patient discharged Performed By: #### L 500.2500, L100.0100 ####[facility] [address] [place], [address] CBC W/Diff, Automatedon 04-2 Absolute Neut Normal 2.0-7.7 [facility] Comment on above: Result Comment: Canc elled via OM: Order cancelled - Patient discharged Performed By: #### L 500.2500, L100.0100 ####[facility] [address] [place], [address] HCT Normal 37-47 [facility] Comment on above: Result Comment: Canc elled via OM: Order cancelled - Patient discharged Performed By: #### L 500.2500, L100.0100 ####[facility] [address] [place], [address] HGB Normal 12.0-15.0 [facility] Comment on above: Result Comment: Canc elled via OM: Order cancelled - Patient discharged Performed By: #### L 500.2500, L100.0100 ####[facility] [address] [place], [address] MCH Normal 27.0-32.0 [facility] Comment on above: Result Comment: Canc elled via OM: Order cancelled - Patient discharged Performed By: #### L 500.2500, L100.0100 ####[facility] [address] [place], [address] MCHC Normal 32-36 [facility] Comment on above: Result Comment: Canc elled via OM: Order cancelled - Patient discharged Performed By: #### L 500.2500, L100.0100 ####[facility] [address] [place], [address] MCV Normal 81-99 [facility] Comment on above: Result Comment: Canc elled via OM: Order cancelled - Patient discharged Performed By: #### L 500.2500, L100.0100 ####[facility] [address] [place], [address] NEUT% Normal 47-70 [facility] Comment on above: Result Comment: Canc elled via OM: Order cancelled - Patient discharged Performed By: #### L 500.2500, L100.0100 ####[facility] [address] [place], [address] PLT Normal 150-450 [facility] Comment on above: Result Comment: Canc elled via OM: Order cancelled - Patient discharged Performed By: #### L 500.2500, L100.0100 ####[facility] [address] [place], [address] RBC Normal 4.2-5.4 [facility] Comment on above: Result Comment: Canc elled via OM: Order cancelled - Patient discharged Performed By: #### L 500.2500, L100.0100 ####[facility] [address] [place], [address] RDW CV Normal 11.6-14.6 [facility] Comment on above: Result Comment: Canc elled via OM: Order cancelled - Patient discharged Performed By: #### L 500.2500, L100.0100 ####[facility] [address] [place], [address] RDW SD Normal 35.1-43.9 [facility] Comment on above: Result Comment: Canc elled via OM: Order cancelled - Patient discharged Performed By: #### L 500.2500, L100.0100 ####[facility] [address] [place], [address] WBC Normal 4.4-11.0 [facility] Comment on above: Result Comment: Canc elled via OM: Order cancelled - Patient discharged Performed By: #### L 500.2500, L100.0100 ####[facility] [address] [place], [address] Basic Metabolic Profile (BMP )on 10-17-2024 BUN Normal 4-19 [facility] Comment on above: Result Comment: Canc elled via OM: Order cancelled - Patient discharged Performed By: #### L 500.2500, L100.0100 ####[facility] [address] [place], [address] BUN/CRE Normal 10-20 [facility] Comment on above: Result Comment: Canc elled via OM: Order cancelled - Patient discharged Performed By: #### L 500.2500, L100.0100 ####[facility] [address] [place], [address] Calcium Normal 7.6-11.0 [facility] Comment on above: Result Comment: Canc elled via OM: Order cancelled - Patient discharged Performed By: #### L 500.2500, L100.0100 ####[facility] [address] [place], [address] CL Normal 98-108 [facility] Comment on above: Result Comment: Canc elled via OM: Order cancelled - Patient discharged Performed By: #### L 500.2500, L100.0100 ####[facility] [address] [place], [address] CO2 Normal 21.0-32.0 [facility] Comment on above: Result Comment: Canc elled via OM: Order cancelled - Patient discharged Performed By: #### L 500.2500, L100.0100 ####[facility] [address] [place], [address] CREAT,SERUM Normal 0.70-1.20 [facility] Comment on above: Result Comment: Canc elled via OM: Order cancelled - Patient discharged Performed By: #### L 500.2500, L100.0100 ####[facility] [address] [place], [address] eGFR Normal >60 [facility] Comment on above: Result Comment: Canc elled via OM: Order cancelled - Patient discharged Performed By: #### L 500.2500, L100.0100 ####[facility] [address] [place], [address] GAP Normal 5-15 [facility] Comment on above: Result Comment: Canc elled via OM: Order cancelled - Patient discharged Performed By: #### L 500.2500, L100.0100 ####[facility] [address] [place], [address] GLU Normal 70-99 [facility] Comment on above: Result Comment: Canc elled via OM: Order cancelled - Patient discharged Performed By: #### L 500.2500, L100.0100 ####[facility] [address] [place], [address] Potassium Normal 3.3-5.1 [facility] Comment on above: Result Comment: Canc elled via OM: Order cancelled - Patient discharged Performed By: #### L 500.2500, L100.0100 ####[facility] [address] [place], [address] Basic Metabolic Profile (BMP) Normal 133-145 [facility] Comment on above: Result Comment: Canc elled via OM: Order cancelled - Patient discharged Performed By: #### L 500.2500, L100.0100 ####[facility] [address] [place], [address] CBC W/Diff, Automatedon - Absolute Neut Normal 2.0-7.7 [facility] Comment on above: Result Comment: Canc elled via OM: Order cancelled - Patient discharged Performed By: #### L 500.2500, L100.0100 ####[facility] [address] [place], [address] HCT Normal 37-47 [facility] Comment on above: Result Comment: Canc elled via OM: Order cancelled - Patient discharged Performed By: #### L 500.2500, L100.0100 ####[facility] [address] [place], [address] HGB Normal 12.0-15.0 [facility] Comment on above: Result Comment: Canc elled via OM: Order cancelled - Patient discharged Performed By: #### L 500.2500, L100.0100 ####[facility] [address] [place], [address] MCH Normal 27.0-32.0 [facility] Comment on above: Result Comment: Canc elled via OM: Order cancelled - Patient discharged Performed By: #### L 500.2500, L100.0100 ####[facility] [address] [place], [address] MCHC Normal 32-36 [facility] Comment on above: Result Comment: Canc elled via OM: Order cancelled - Patient discharged Performed By: #### L 500.2500, L100.0100 ####[facility] [address] [place], [address] MCV Normal 81-99 [facility] Comment on above: Result Comment: Canc elled via OM: Order cancelled - Patient discharged Performed By: #### L 500.2500, L100.0100 ####[facility] [address] [place], [address] NEUT% Normal 47-70 [facility] Comment on above: Result Comment: Canc elled via OM: Order cancelled - Patient discharged Performed By: #### L 500.2500, L100.0100 ####[facility] [address] [place], [address] PLT Normal 150-450 [facility] Comment on above: Result Comment: Canc elled via OM: Order cancelled - Patient discharged Performed By: #### L 500.2500, L100.0100 ####[facility] [address] [place], [address] RBC Normal 4.2-5.4 [facility] Comment on above: Result Comment: Canc elled via OM: Order cancelled - Patient discharged Performed By: #### L 500.2500, L100.0100 ####[facility] [address] [place], [address] RDW CV Normal 11.6-14.6 [facility] Comment on above: Result Comment: Canc elled via OM: Order cancelled - Patient discharged Performed By: #### L 500.2500, L100.0100 ####[facility] [address] [place], [address] RDW SD Normal 35.1-43.9 [facility] Comment on above: Result Comment: Canc elled via OM: Order cancelled - Patient discharged Performed By: #### L 500.2500, L100.0100 ####[facility] [address] [place], [address] WBC Normal 4.4-11.0 [facility] Comment on above: Result Comment: Canc elled via OM: Order cancelled - Patient discharged Performed By: #### L 500.2500, L100.0100 ####[facility] [address] [place], [address] Synovial Fluid RBC, WBC AND Diffon 10-14-2024 PATH COM/SYFL Reviewed Normal [facility] Comment on above: Result Comment: SEE REPORT IN PATIENT'S EMR AMENDED REPORT 10/14/24 1405 PATH COM/SYFL previously reported as: May follow Performed By: #### M 100.4001, M100.2900, M100.2000, M300.3000, L200.0400, M600.2000, M300.2000 ####[facility] [address] [place], [address] Basic Metabolic Profile (BMP )on 10-10-2024 BUN Normal 4-19 [facility] Comment on above: Result Comment: Canc elled via OM: Order cancelled - Patient discharged Performed By: #### L 100.0100, L500.2500 ####[facility] [address] [place], [address] BUN/CRE Normal 10-20 [facility] Comment on above: Result Comment: Canc elled via OM: Order cancelled - Patient discharged Performed By: #### L 100.0100, L500.2500 ####[facility] [address] [place], [address] Calcium Normal 7.6-11.0 [facility] Comment on above: Result Comment: Canc elled via OM: Order cancelled - Patient discharged Performed By: #### L 100.0100, L500.2500 ####[facility] [address] [place], [address] CL Normal 98-108 [facility] Comment on above: Result Comment: Canc elled via OM: Order cancelled - Patient discharged Performed By: #### L 100.0100, L500.2500 ####[facility] [address] [place], [address] CO2 Normal 21.0-32.0 [facility] Comment on above: Result Comment: Canc elled via OM: Order cancelled - Patient discharged Performed By: #### L 100.0100, L500.2500 ####[facility] [address] [place], [address] CREAT,SERUM Normal 0.70-1.20 [facility] Comment on above: Result Comment: Canc elled via OM: Order cancelled - Patient discharged Performed By: #### L 100.0100, L500.2500 ####[facility] [address] [place], [address] eGFR Normal >60 [facility] Comment on above: Result Comment: Canc elled via OM: Order cancelled - Patient discharged Performed By: #### L 100.0100, L500.2500 ####[facility] [address] [place], [address] GAP Normal 5-15 [facility] Comment on above: Result Comment: Canc elled via OM: Order cancelled - Patient discharged Performed By: #### L 100.0100, L500.2500 ####[facility] [address] [place], [address] GLU Normal 70-99 [facility] Comment on above: Result Comment: Canc elled via OM: Order cancelled - Patient discharged Performed By: #### L 100.0100, L500.2500 ####[facility] [address] [place], [address] Potassium Normal 3.3-5.1 [facility] Comment on above: Result Comment: Canc elled via OM: Order cancelled - Patient discharged Performed By: #### L 100.0100, L500.2500 ####[facility] [address] [place], [address] Basic Metabolic Profile (BMP) Normal 133-145 [facility] Comment on above: Result Comment: Canc elled via OM: Order cancelled - Patient discharged Performed By: #### L 100.0100, L500.2500 ####[facility] [address] [place], [address] CBC W/Diff, Automatedon 10-01-2024 Absolute Neut Normal 2.0-7.7 [facility] Comment on above: Result Comment: Canc elled via OM: Order cancelled - Patient discharged Performed By: #### L 100.0100, L500.2500 ####[facility] [address] [place], [address] HCT Normal 37-47 [facility] Comment on above: Result Comment: Canc elled via OM: Order cancelled - Patient discharged Performed By: #### L 100.0100, L500.2500 ####[facility] [address] [place], [address] HGB Normal 12.0-15.0 [facility] Comment on above: Result Comment: Canc elled via OM: Order cancelled - Patient discharged Performed By: #### L 100.0100, L500.2500 ####[facility] [address] [place], [address] MCH Normal 27.0-32.0 [facility] Comment on above: Result Comment: Canc elled via OM: Order cancelled - Patient discharged Performed By: #### L 100.0100, L500.2500 ####[facility] [address] [place], [address] MCHC Normal 32-36 [facility] Comment on above: Result Comment: Canc elled via OM: Order cancelled - Patient discharged Performed By: #### L 100.0100, L500.2500 ####[facility] [address] [place], [address] MCV Normal 81-99 [facility] Comment on above: Result Comment: Canc elled via OM: Order cancelled - Patient discharged Performed By: #### L 100.0100, L500.2500 ####[facility] [address] [place], [address] NEUT% Normal 47-70 [facility] Comment on above: Result Comment: Canc elled via OM: Order cancelled - Patient discharged Performed By: #### L 100.0100, L500.2500 ####[facility] [address] [place], [address] PLT Normal 150-450 [facility] Comment on above: Result Comment: Canc elled via OM: Order cancelled - Patient discharged Performed By: #### L 100.0100, L500.2500 ####[facility] [address] [place], [address] RBC Normal 4.2-5.4 [facility] Comment on above: Result Comment: Canc elled via OM: Order cancelled - Patient discharged Performed By: #### L 100.0100, L500.2500 ####[facility] [address] [place], [address] RDW CV Normal 11.6-14.6 [facility] Comment on above: Result Comment: Canc elled via OM: Order cancelled - Patient discharged Performed By: #### L 100.0100, L500.2500 ####[facility] [address] [place], [address] RDW SD Normal 35.1-43.9 [facility] Comment on above: Result Comment: Canc elled via OM: Order cancelled - Patient discharged Performed By: #### L 100.0100, L500.2500 ####[facility] [address] [place], [address] WBC Normal 4.4-11.0 [facility] Comment on above: Result Comment: Canc elled via OM: Order cancelled - Patient discharged Performed By: #### L 100.0100, L500.2500 ####[facility] [address] [place], [address] Vancomycin trough [Mass/Vol] Ordered By: Sixto Andrade on 10-06-2024 Vancomycin Level Trough 13.6 ug/mL 5.0-15.0 [facility] Comment on above: Recommended goal tro [...] therapy recommended for serious lifethreatening infections include:- Vbcyrkdlcs-Krbrpiktknea-Vciruqqzq (Ventilator/Healtcare Associated)-Sepsis PLEASE CONTACT PHARMACY SERVICES (#[id number]) FOR INTERPRETATIONOF RESULTS. Vancomycin, Trough Levelon 0 10-06-2024 VANCO, TROUGH 13.6 ug/mL Normal 5.0-15.0 [facility] Comment on above: Order Comment: Comme nts: DRAW 30 MIN PRIOR TO [id number] Result Comment: Zackery mmended goal trough ranges [...] therapy recommended for serious lifethreatening infections include:- Tdpwrkwake-Ebjbuuncwigt-Nyafuoicv (Ventilator/Healtcare Associated)-SepsisPLEASE CONTACT PHARMACY SERVICES (#[id number]) FOR INTERPRETATIONOF RESULTS. Performed By: #### L 501.8820 ####[facility] [address], [address] Absolute neutrophil countOrd ered By: Rodrigo Sanches on 10-03-2024 Neutrophils (Bld) [#/Vol] 3.0 10*3/uL 2.0-7.7 [facility] Anion gap in Serum or Plasma Ordered By: Rodrigo Sanches on 10-03-2024 Anion gap [Moles/Vol] 11 mmol/L - [facility] BUN/creatinine ratioOrdered By: Rodrigo Sanches on 10-03-2024 Urea nitrogen/Creatinine [Mass ratio] 24.6 mg/mg High - [facility] Basic Metabolic Profile (BMP )on 10-03-2024 BUN/CRE 24.6 RATIO High - [facility] Comment on above: Performed By: #### L 500.2500, L100.0100 ####[facility] [address] [place], [address] Calcium [Mass/Vol] 9.2 mg/dL Normal 7.6-11.0 [facility] Comment on above: Performed By: #### L 500.2500, L100.0100 ####[facility] [address] [place], [address] Chloride [Moles/Vol] 100 mmol/L Normal 98-108 [facility] Comment on above: Performed By: #### L 500.2500, L100.0100 ####[facility] [address] [place], [address] CO2 [Moles/Vol] 27.3 mmol/L Normal 21.0-32.0 [facility] Comment on above: Performed By: #### L 500.2500, L100.0100 ####[facility] [address] [place], [address] Creatinine [Mass/Vol] 1.09 mg/dL Normal 0.70-1.20 [facility] Comment on above: Performed By: #### L 500.2500, L100.0100 ####[facility] [address] [place], [address] ECRCL 56.04 ml/min Normal 50-250 [facility] Comment on above: Performed By: #### L 500.2500, L100.0100 ####[facility] [address] [place], [address] GAP 11 Normal 5-15 [facility] Comment on above: Performed By: #### L 500.2500, L100.0100 ####[facility] [address] [place], [address] GFR/1.73 sq M.predicted among non-blacks MDRD (S/P/Bld) [Vol rate/Area] 53 mL/min/{1.73_m2} Low >60 [facility] Comment on above: Result Comment: mL/m in/1.73m2 CKD-EPI Creatinine Equation (2020) Performed By: #### L 500.2500, L100.0100 ####[facility] [address] [place], [address] Glucose [Mass/Vol] 96 mg/dL Normal 70-99 [facility] Comment on above: Performed By: #### L 500.2500, L100.0100 ####[facility] [address] [place], [address] Potassium [Moles/Vol] 4.4 mmol/L Normal 3.3-5.1 [facility] Comment on above: Performed By: #### L 500.2500, L100.0100 ####[facility] [address] [place], [address] Sodium [Moles/Vol] 139 mmol/L Normal 133-145 [facility] Comment on above: Performed By: #### L 500.2500, L100.0100 ####[facility] [address] [place], [address] Urea nitrogen [Mass/Vol] 27 mg/dL High 4-19 [facility] Comment on above: Performed By: #### L 500.2500, L100.0100 ####[facility] [address] [place], [address] Basophil percentageOrdered B y: Rodrigo Sanches on 10-03-2024 Basophils/100 WBC (Bld) 0.8 % 0-1 [facility] CBC W/Diff, Automatedon Absolute Lymph 1.20 X10 3/uL Normal 0.83-4.51 [facility] Comment on above: Performed By: #### L 500.2500, L100.0100 ####[facility] [address] [place], [address] Absolute Neut 3.0 X10 3/uL Normal 2.0-7.7 [facility] Comment on above: Performed By: #### L 500.2500, L100.0100 ####[facility] [address] [place], [address] Basophils/100 WBC (Bld) 0.8 % Normal 0-1 [facility] Comment on above: Performed By: #### L 500.2500, L100.0100 ####[facility] [address] [place], [address] Eosinophils/100 WBC (Bld) 5.5 % High 0-5 [facility] Comment on above: Performed By: #### L 500.2500, L100.0100 ####[facility] [address] [place], [address] Erythrocyte distribution width (RBC) [Ratio] 15.0 % High 11.6-14.6 [facility] Comment on above: Performed By: #### L 500.2500, L100.0100 ####[facility] [address] [place], [address] Hematocrit (Bld) [Volume fraction] 37.3 % Normal 37-47 [facility] Comment on above: Performed By: #### L 500.2500, L100.0100 ####[facility] [address] [place], [address] Hemoglobin (Bld) [Mass/Vol] 11.9 g/dL Low 12.0-15.0 [facility] Comment on above: Performed By: #### L 500.2500, L100.0100 ####[facility] [address] [place], [address] IG% 0.600 Normal 0.0-0.9 [facility] Comment on above: Result Comment: IG% - Immature Granulocytes (promyelocytes, myelocytes andmetamyelocytes) > 1% indicates that a LEFT SHIFT is Present. Performed By: #### L 500.2500, L100.0100 ####[facility] [address] [place], [address] Lymphocytes/100 WBC (Bld) 22.7 % Normal 19-41 [facility] Comment on above: Performed By: #### L 500.2500, L100.0100 ####[facility] [address] [place], [address] MCH (RBC) [Entitic mass] 29.2 pg Normal 27.0-32.0 [facility] Comment on above: Performed By: #### L 500.2500, L100.0100 ####[facility] [address] [place], [address] MCHC (RBC) [Mass/Vol] 31.9 g/dL Low 32-36 [facility] Comment on above: Performed By: #### L 500.2500, L100.0100 ####[facility] [address] [place], [address] MCV (RBC) [Entitic vol] 91.6 fL Normal 81-99 [facility] Comment on above: Performed By: #### L 500.2500, L100.0100 ####[facility] [address] [place], [address] Monocytes/100 WBC (Bld) 13.4 % High 0-10 [facility] Comment on above: Performed By: #### L 500.2500, L100.0100 ####[facility] [address] [place], [address] Neutrophils/100 WBC (Bld) 57.0 % Normal 47-70 [facility] Comment on above: Performed By: #### L 500.2500, L100.0100 ####[facility] [address] [place], [address] Nucleated RBC (Bld) [#/Vol] 0 10*3/uL Normal 0-5 [facility] Comment on above: Performed By: #### L 500.2500, L100.0100 ####[facility] [address] [place], [address] Platelet mean volume (Bld) [Entitic vol] 10.3 fL Normal 6.2-12.0 [facility] Comment on above: Performed By: #### L 500.2500, L100.0100 ####[facility] [address] [place], [address] Platelets (Bld) [#/Vol] 247 10*3/uL Normal 150-450 [facility] Comment on above: Performed By: #### L 500.2500, L100.0100 ####[facility] [address] [place], [address] RBC (Bld) [#/Vol] 4.07 10*6/uL Low 4.2-5.4 [facility] Comment on above: Performed By: #### L 500.2500, L100.0100 ####[facility] [address] [place], [address] RDW SD 50.2 fl High 35.1-43.9 [facility] Comment on above: Performed By: #### L 500.2500, L100.0100 ####[facility] [address] [place], [address] WBC (Bld) [#/Vol] 5.3 10*3/uL Normal 4.4-11.0 [facility] Comment on above: Performed By: #### L 500.2500, L100.0100 ####[facility] [address] [place], [address] Carbon dioxide, total [Moles /volume] in Central venous bloodOrdered By: Rodrigo Sanches on 10-03-2024 CO2 [Moles/Vol] 27.3 mmol/L 21.0-32.0 [facility] Chloride assayOrdered By: Neftaly Sanches on 10-03-2024 Chloride [Moles/Vol] 100 mmol/L 98-108 [facility] Eosinophil percentageOrdered By: Rodrigo Sanches 10-03-2024 Eosinophils/100 WBC (Bld) 5.5 % High 0-5 [facility] Erythrocyte distribution wid th (RBC) [Ratio]Ordered By: Rodrigo Sanches on 10-03-2024 Erythrocyte distribution width (RBC) [Entitic vol] 50.2 fL High 35.1-43.9 [facility] Erythrocyte distribution wid th ratioOrdered By: Rodrigo Sanches on 10-03-2024 Erythrocyte distribution width (RBC) [Ratio] 15.0 % High 11.6-14.6 [facility] Estimation of creatinine darrell aranceOrdered By: Rodrigo Sanches on 10-03-2024 Estimated Creatinine Clearance Calc 56.04 ml/min 50-250 [facility] GFR/1.73 sq M.predicted hans g non-blacks MDRD (S/P/Bld) [Vol rate/Area]Ordered By: Rodrigo Sanches on 10-03-2024 Estimated GFR (MDRD) Non-Af Amer 53 Low >60 [facility] Comment on above: mL/min/1.73m2 CKD-EP I Creatinine Equation (2020) Hematocrit Auto (Bld) [Volum e fraction]Ordered By: Rodrigo Sanches on 10-03-2024 Hematocrit (Bld) [Volume fraction] 37.3 % 37-47 [facility] Hemoglobin measurementOrdere d By: Rodrigo Sanches on 10-03-2024 Hemoglobin (Bld) [Mass/Vol] 11.9 g/dL Low 12.0-15.0 [facility] Immature granulocytes/100 WB C Auto (Bld)Ordered By: Rodrigo Sanches on 10-03-2024 Immature granulocytes/100 WBC (Bld) 0.600 % 0.0-0.9 [facility] Comment on above: IG% - Immature Granu locytes (promyelocytes, myelocytes and metamyelocytes) > 1% indicates that a LEFT SHIFT is Present. Lymphocytes Auto (Unsp spec) [#/Vol]Ordered By: Rodrigo Sanches on 10-03-2024 Lymphocytes (Bld) [#/Vol] 1.20 10*3/uL 0.83-4.51 [facility] Lymphocytes/100 WBC Auto (Un sp spec)Ordered By: Rodrigo Sanches 10-03-2024 Lymphocytes/100 WBC (Bld) 22.7 % 19-41 [facility] MCV (mean corpuscular volume ) determinationOrdered By: Rodrigo Sanches on 10-03-2024 MCV (RBC) [Entitic vol] 91.6 fL 81-99 [facility] Mean corpuscular hemoglobin (MCH) determinationOrdered By: Rodrigo Sanches 10-03-2024 MCH (RBC) [Entitic mass] 29.2 pg 27.0-32.0 [facility] Mean corpuscular hemoglobin concentration (MCHC) determinationOrdered By: Rodrigo Sanches 10-03-2024 MCHC (RBC) [Mass/Vol] 31.9 g/dL Low 32-36 [facility] Mean platelet volume determi nationOrdered By: Rodrigo Sanches on 10-03-2024 Platelet mean volume (Bld) [Entitic vol] 10.3 fL 6.2-12.0 [facility] Monocyte percentageOrdered B y: Rodrigo Sanches on 10-03-2024 Monocytes/100 WBC (Bld) 13.4 % High 0-10 [facility] Neutrophil percentageOrdered By: Rodrigo Sanches on 10-03-2024 Neutrophils/100 WBC (Bld) 57.0 % 47-70 [facility] Nucleated red blood cell per centageOrdered By: Rodrigo Sanches on 10-03-2024 Nucleated RBC/100 WBC (Bld) [Ratio] 0 % 0-5 [facility] Platelet countOrdered By: Neftaly Sanches on 10-03-2024 Platelets (Bld) [#/Vol] 247 10*3/uL 150-450 [facility] Potassium (Unsp spec) [Mass/ Vol]Ordered By: Rodrigo Sanches on 10-03-2024 Potassium [Moles/Vol] 4.4 mmol/L 3.3-5.1 [facility] RBC Auto (Bld) [#/Vol]Ordere d By: Rodrigo Sanches on 10-03-2024 RBC (Bld) [#/Vol] 4.07 10*6/uL Low 4.2-5.4 [facility] Serum creatinine measurement (mass/volume)Ordered By: Rodrigo Sanches on 10-03-2024 Creatinine [Mass/Vol] 1.09 mg/dL 0.70-1.20 [facility] Serum glucose measurement (m ass/volume)Ordered By: Rodrigo Sanches on 10-03-2024 Glucose [Mass/Vol] 96 mg/dL 70-99 [facility] Serum or plasma calcium lisa urement (mass/volume)Ordered By: Rodrigo Sanches on 10-03-2024 Calcium [Mass/Vol] 9.2 mg/dL 7.6-11.0 [facility] Serum or plasma urea nitroge n measurement (mass/volume)Ordered By: Rodrigo Sanches on 10-03-2024 Urea nitrogen [Mass/Vol] 27 mg/dL High 4-19 [facility] Sodium levelOrdered By: Rodrigo Sanches on 10-03-2024 Sodium [Moles/Vol] 139 mmol/L 133-145 [facility] White blood cell (WBC) count Ordered By: Rodrigo Sanches on 10-03-2024 WBC (Bld) [#/Vol] 5.3 10*3/uL 4.4-11.0 [facility] Vancomycin, Trough Levelon 0 10-01-2024 VANCO, TROUGH 13.2 ug/mL Normal 5.0-15.0 [facility] Comment on above: Order Comment: Comme nts: Trough to be drawn 30 mins prior to scheduled [id number] Result Comment: Zackery mmended goal trough ranges [...] therapy recommended for serious lifethreatening infections include:- Bdpkutmluc-Udjwnutkqvwp-Dfmgamulg (Ventilator/Healtcare Associated)-SepsisPLEASE CONTACT PHARMACY SERVICES (#[id number]) FOR INTERPRETATIONOF RESULTS. Performed By: #### L 501.8820 ####[facility] [address] [place], [address] Vancomycin, Trough Levelon 0 09-29-2024 VANCO, TROUGH 15.6 ug/mL High 5.0-15.0 [facility] Comment on above: Order Comment: Comme nts: DRAW 30 MIN PRIOR TO [id number] Result Comment: Zackery mmended goal trough ranges [...] therapy recommended for serious lifethreatening infections include:- Wbpigphxlm-Xohargdownwl-Iuettdpxh (Ventilator/Healtcare Associated)-SepsisPLEASE CONTACT PHARMACY SERVICES (#[id number]) FOR INTERPRETATIONOF RESULTS. Performed By: #### L 501.8820 ####[facility] [address] [place], [address] Basic Metabolic Profile (BMP )on 09-26-2024 BUN/CRE 25.8 RATIO High 10-20 [facility] Comment on above: Performed By: #### L 100.0100, L500.2500 ####[facility] [address] [place], [address] Calcium [Mass/Vol] 9.5 mg/dL Normal 7.6-11.0 [facility] Comment on above: Performed By: #### L 100.0100, L500.2500 ####[facility] [address] [place], [address] Chloride [Moles/Vol] 100 mmol/L Normal 98-108 [facility] Comment on above: Performed By: #### L 100.0100, L500.2500 ####[facility] [address] [place], [address] CO2 [Moles/Vol] 27.3 mmol/L Normal 21.0-32.0 [facility] Comment on above: Performed By: #### L 100.0100, L500.2500 ####[facility] [address] [place], [address] Creatinine [Mass/Vol] 1.13 mg/dL Normal 0.70-1.20 [facility] Comment on above: Performed By: #### L 100.0100, L500.2500 ####[facility] [address] [place], [address] ECRCL 54.32 ml/min Normal 50-250 [facility] Comment on above: Performed By: #### L 100.0100, L500.2500 ####[facility] [address] [place], [address] GAP 12 Normal 5-15 [facility] Comment on above: Performed By: #### L 100.0100, L500.2500 ####[facility] [address] [place], [address] GFR/1.73 sq M.predicted among non-blacks MDRD (S/P/Bld) [Vol rate/Area] 51 mL/min/{1.73_m2} Low >60 [facility] Comment on above: Result Comment: mL/m in/1.73m2 CKD-EPI Creatinine Equation (2020) Performed By: #### L 100.0100, L500.2500 ####[facility] [address] [place], [address] Glucose [Mass/Vol] 100 mg/dL High 70-99 [facility] Comment on above: Performed By: #### L 100.0100, L500.2500 ####[facility] [address] [place], [address] Potassium [Moles/Vol] 5.0 mmol/L Normal 3.3-5.1 [facility] Comment on above: Performed By: #### L 100.0100, L500.2500 ####[facility] [address] [place], [address] Sodium [Moles/Vol] 139 mmol/L Normal 133-145 [facility] Comment on above: Performed By: #### L 100.0100, L500.2500 ####[facility] [address] [place], [address] Urea nitrogen [Mass/Vol] 29 mg/dL High 4-19 [facility] Comment on above: Performed By: #### L 100.0100, L500.2500 ####[facility] [address] [place], [address] CBC W/Diff, Automatedon 03- Absolute Lymph 1.52 X10 3/uL Normal 0.83-4.51 [facility] Comment on above: Performed By: #### L 100.0100, L500.2500 ####[facility] [address] [place], [address] Absolute Neut 5.2 X10 3/uL Normal 2.0-7.7 [facility] Comment on above: Performed By: #### L 100.0100, L500.2500 ####[facility] [address] [place], [address] Basophils/100 WBC (Bld) 1.0 % Normal 0-1 [facility] Comment on above: Performed By: #### L 100.0100, L500.2500 ####[facility] [address] [place], [address] Eosinophils/100 WBC (Bld) 3.9 % Normal 0-5 [facility] Comment on above: Performed By: #### L 100.0100, L500.2500 ####[facility] [address] [place], [address] Erythrocyte distribution width (RBC) [Ratio] 14.6 % Normal 11.6-14.6 [facility] Comment on above: Performed By: #### L 100.0100, L500.2500 ####[facility] [address] [place], [address] Hematocrit (Bld) [Volume fraction] 37.0 % Normal 37-47 [facility] Comment on above: Performed By: #### L 100.0100, L500.2500 ####[facility] [address] [place], [address] Hemoglobin (Bld) [Mass/Vol] 12.1 g/dL Normal 12.0-15.0 [facility] Comment on above: Performed By: #### L 100.0100, L500.2500 ####[facility] [address] [place], [address] IG% 0.800 Normal 0.0-0.9 [facility] Comment on above: Result Comment: IG% - Immature Granulocytes (promyelocytes, myelocytes andmetamyelocytes) > 1% indicates that a LEFT SHIFT is Present. Performed By: #### L 100.0100, L500.2500 ####[facility] [address] [place], [address] Lymphocytes/100 WBC (Bld) 19.3 % Normal 19-41 [facility] Comment on above: Performed By: #### L 100.0100, L500.2500 ####[facility] [address] [place], [address] MCH (RBC) [Entitic mass] 29.7 pg Normal 27.0-32.0 [facility] Comment on above: Performed By: #### L 100.0100, L500.2500 ####[facility] [address] [place], [address] MCHC (RBC) [Mass/Vol] 32.7 g/dL Normal 32-36 [facility] Comment on above: Performed By: #### L 100.0100, L500.2500 ####[facility] [address] [place], [address] MCV (RBC) [Entitic vol] 90.9 fL Normal 81-99 [facility] Comment on above: Performed By: #### L 100.0100, L500.2500 ####[facility] [address] [place], [address] Monocytes/100 WBC (Bld) 8.5 % Normal 0-10 [facility] Comment on above: Performed By: #### L 100.0100, L500.2500 ####[facility] [address] [place], [address] Neutrophils/100 WBC (Bld) 66.5 % Normal 47-70 [facility] Comment on above: Performed By: #### L 100.0100, L500.2500 ####[facility] [address] [place], [address] Nucleated RBC (Bld) [#/Vol] 0 10*3/uL Normal 0-5 [facility] Comment on above: Performed By: #### L 100.0100, L500.2500 ####[facility] [address] [place], [address] Platelet mean volume (Bld) [Entitic vol] 10.2 fL Normal 6.2-12.0 [facility] Comment on above: Performed By: #### L 100.0100, L500.2500 ####[facility] [address] [place], [address] Platelets (Bld) [#/Vol] 390 10*3/uL Normal 150-450 [facility] Comment on above: Performed By: #### L 100.0100, L500.2500 ####[facility] [address] [place], [address] RBC (Bld) [#/Vol] 4.07 10*6/uL Low 4.2-5.4 [facility] Comment on above: Performed By: #### L 100.0100, L500.2500 ####[facility] [address] [place], [address] RDW SD 47.8 fl High 35.1-43.9 [facility] Comment on above: Performed By: #### L 100.0100, L500.2500 ####[facility] [address] [place], [address] WBC (Bld) [#/Vol] 7.9 10*3/uL Normal 4.4-11.0 [facility] Comment on above: Performed By: #### L 100.0100, L500.2500 ####[facility] [address] [place], [place], [address] Vancomycin, Trough Levelon 0 09-24-2024 VANCO, TROUGH 13.3 ug/mL Normal 5.0-15.0 [facility] Comment on above: Order Comment: Comme nts: Trough to be drawn 30 mins prior to scheduled [id number] Result Comment: Zackery mmended goal trough ranges [...] therapy recommended for serious lifethreatening infections include:- Tqfoofwkcs-Mgimcvuoihft-Pzexvpmwj (Ventilator/Healtcare Associated)-SepsisPLEASE CONTACT PHARMACY SERVICES (#0557) FOR INTERPRETATIONOF RESULTS. Performed By: #### L 501.8820 ####[facility] [address] [facility] [place], [place], [address] Vancomycin, Trough Levelon 0 09-22-2024 VANCO, TROUGH 12.4 ug/mL Normal 5.0-15.0 [facility] Comment on above: Order Comment: 0900 [...] therapy recommended for serious lifethreatening infections include:- Ncihpkknjl-Pcdfzotuhkza-Ynlkqndef (Ventilator/Healtcare Associated)-SepsisPLEASE CONTACT PHARMACY SERVICES (#2059) FOR INTERPRETATIONOF RESULTS. Performed By: #### L 501.8820 ####[facility] [address] [place], [address] Bilirubin, totalOrdered By: Rodrigo Sanches on 09-21-2024 Bilirubin [Mass/Vol] 0.22 mg/dL 0.00-1.30 [facility] Comprehensive Metabolic Prof ilon 09-21-2024 Albumin [Mass/Vol] 3.2 g/dL Low 3.4-4.8 [facility] Comment on above: Performed By: #### L 500.4050 ####[facility] [address] [place], [address] Albumin/Globulin [Mass ratio] 0.9 {ratio} Normal 0.9-2.4 [facility] Comment on above: Performed By: #### L 500.4050 ####[facility] [address] [place], [address] ALK PHOS 120 U/L High 35-104 [facility] Comment on above: Performed By: #### L 500.4050 ####[facility] [address] [place], [address] ALT [Catalytic activity/Vol] 15 U/L Normal <=34 [facility] Comment on above: Performed By: #### L 500.4050 ####[facility] [address] [place], [address] AST [Catalytic activity/Vol] 23 U/L Normal <=31 [facility] Comment on above: Performed By: #### L 500.4050 ####[facility] [address] [place], [address] Bilirubin [Mass/Vol] 0.22 mg/dL Normal 0.00-1.30 [facility] Comment on above: Performed By: #### L 500.4050 ####[facility] [address] [place], [address] BUN/CRE 21.1 RATIO High 10-20 [facility] Comment on above: Performed By: #### L 500.4050 ####[facility] [address] [place], [address] Calcium [Mass/Vol] 9.2 mg/dL Normal 7.6-11.0 [facility] Comment on above: Performed By: #### L 500.4050 ####[facility] [address] [place], [address] Chloride [Moles/Vol] 99 mmol/L Normal 98-108 [facility] Comment on above: Performed By: #### L 500.4050 ####[facility] [address] [place], [address] CO2 [Moles/Vol] 27.1 mmol/L Normal 21.0-32.0 [facility] Comment on above: Performed By: #### L 500.4050 ####[facility] [address] [place], [address] ECRCL 51.50 ml/min Normal 50-250 [facility] Comment on above: Performed By: #### L 500.4050 ####[facility] [address] [place], [address] GAP 12 Normal 5-15 [facility] Comment on above: Performed By: #### L 500.4050 ####[facility] [address] [place], [address] GFR/1.73 sq M.predicted among non-blacks MDRD (S/P/Bld) [Vol rate/Area] 48 mL/min/{1.73_m2} Low >60 [facility] Comment on above: Result Comment: mL/m in/1.73m2 CKD-EPI Creatinine Equation (2020) Performed By: #### L 500.4050 ####[facility] [address] [place], [address] Globulin (S) [Mass/Vol] 3.5 g/dL Normal 2.2-4.2 [facility] Comment on above: Performed By: #### L 500.4050 ####[facility] [address] [place], [address] Potassium [Moles/Vol] 4.6 mmol/L Normal 3.3-5.1 [facility] Comment on above: Performed By: #### L 500.4050 ####[facility] [address] [place], [address] Sodium [Moles/Vol] 138 mmol/L Normal 133-145 [facility] Comment on above: Performed By: #### L 500.4050 ####[facility] [address] [place], [address] T PROT 6.7 g/dL Normal 5.9-8.4 [facility] Comment on above: Performed By: #### L 500.4050 ####[facility] [address] [place], [address] Creatinine [Mass/Vol] 1.19 mg/dL Normal 0.70-1.20 [facility] Comment on above: Performed By: #### L 500.4050 ####[facility] [address] [place], [address] Glucose [Mass/Vol] 99 mg/dL Normal 70-99 [facility] Comment on above: Performed By: #### L 500.4050 ####[facility] [address] [place], [address] Urea nitrogen [Mass/Vol] 25 mg/dL High 4-19 [facility] Comment on above: Performed By: #### L 500.4050 ####[facility] [address] [place], [address] Laboratory - Chemistry and C hemistry - challengeOrdered By: Rodrigo Sanches on 09-21-2024 AST [Catalytic activity/Vol] 23 U/L <32 [facility] Serum globulin measurementOr dered By: Rodrigo Sanches on 09-21-2024 Globulin (S) [Mass/Vol] 3.5 g/dL 2.2-4.2 [facility] Serum or plasma alanine gao otransferase (ALT) measurementOrdered By: Rodrigo Sanches on 09-21-2024 ALT [Catalytic activity/Vol] 15 U/L <35 [facility] Serum or plasma albumin lisa urement (mass/volume)Ordered By: Rodrigo Sanches 09-21-2024 Albumin [Mass/Vol] 3.2 g/dL Low 3.4-4.8 [facility] Serum or plasma albumin/glob ulin mass ratioOrdered By: Rodrigo Sanches 09-21-2024 Albumin/Globulin [Mass ratio] 0.9 {ratio} 0.9-2.4 [facility] Serum or plasma alkaline bee sphatase measurementOrdered By: Rodrigo Sanches 09-21-2024 ALP [Catalytic activity/Vol] 120 U/L High 35-104 [facility] Total proteinOrdered By: Rodrigo Sanches 09-21-2024 Protein [Mass/Vol] 6.7 g/dL 5.9-8.4 [facility] Vancomycin, Trough Levelon 0 09-20-2024 VANCO, TROUGH 9.9 ug/mL Normal 5.0-15.0 [facility] Comment on above: Order Comment: 0800 Result Comment: VANC OMYCIN STANDARED DRUG THERAPY TROUGH LEVEL: 5.0 - 15.0 mg/LVANCOMYCIN HIGH INTENSITY THERAPY TROUGH LEVEL: 15.0 - 20.0 mg/LHigh Intensity therapy recommended for serious lifethreatening infections include:- Xyylimiube-Xknbdxwvhezg-Akotdqkep (Ventilator/Healtcare Associated)-SepsisPLEASE CONTACT PHARMACY SERVICES (#[id number]) FOR INTERPRETATIONOF RESULTS. AMENDED REPORT 09/20/24 1244 VANCO, TROUGH previously reported as: 10.3 ug/mLRecommended [...] therapy recommended for serious lifethreatening infections include:- Jwebqralsp-Ydvercsychky-Ypfmlwgpg (Ventilator/Healtcare Associated)-SepsisPLEASE CONTACT PHARMACY SERVICES (#8361) FOR INTERPRETATIONOF RESULTS.Recommended goal trough ranges are [...] therapy recommended for serious lifethreatening infections include:- Qinwnpheih-Dtwpxbwrwjwp-Fxhzabdah (Ventilator/Healtcare Associated)-SepsisPLEASE CONTACT PHARMACY SERVICES (#8331) FOR INTERPRETATIONOF RESULTS. Performed By: #### L 501.8820 ####[facility] [address] [facility] [place], [address] Basic Metabolic Profile (BMP )on 09-19-2024 BUN/CRE 18.6 RATIO Normal - [facility] Comment on above: Performed By: #### L 100.0100, L500.2500 ####[facility] [address] [place], [address] Calcium [Mass/Vol] 9.7 mg/dL Normal 7.6-11.0 [facility] Comment on above: Performed By: #### L 100.0100, L500.2500 ####[facility] [address] [place], [address] Chloride [Moles/Vol] 97 mmol/L Low 98-108 [facility] Comment on above: Performed By: #### L 100.0100, L500.2500 ####[facility] [address] [place], [address] CO2 [Moles/Vol] 30.4 mmol/L Normal 21.0-32.0 [facility] Comment on above: Performed By: #### L 100.0100, L500.2500 ####[facility] [address] [place], [address] Creatinine [Mass/Vol] 1.07 mg/dL Normal 0.70-1.20 [facility] Comment on above: Performed By: #### L 100.0100, L500.2500 ####[facility] [address] [place], [address] ECRCL 57.28 ml/min Normal 50-250 [facility] Comment on above: Performed By: #### L 100.0100, L500.2500 ####[facility] [address] [place], [address] GAP 14 Normal 5-15 [facility] Comment on above: Performed By: #### L 100.0100, L500.2500 ####[facility] [address] [place], [address] GFR/1.73 sq M.predicted among non-blacks MDRD (S/P/Bld) [Vol rate/Area] 54 mL/min/{1.73_m2} Low >60 [facility] Comment on above: Result Comment: mL/m in/1.73m2 CKD-EPI Creatinine Equation (2020) Performed By: #### L 100.0100, L500.2500 ####[facility] [address] [place], [address] Glucose [Mass/Vol] 101 mg/dL High 70-99 [facility] Comment on above: Performed By: #### L 100.0100, L500.2500 ####[facility] [address] [place], [address] Potassium [Moles/Vol] 4.6 mmol/L Normal 3.3-5.1 [facility] Comment on above: Performed By: #### L 100.0100, L500.2500 ####[facility] [address] [place], [address] Sodium [Moles/Vol] 142 mmol/L Normal 133-145 [facility] Comment on above: Performed By: #### L 100.0100, L500.2500 ####[facility] [address] [place], [address] Urea nitrogen [Mass/Vol] 20 mg/dL High 4-19 [facility] Comment on above: Performed By: #### L 100.0100, L500.2500 ####[facility] [address] [place], [address] CBC W/Diff, Automatedon 03- 0-2024 Absolute Lymph 1.49 X10 3/uL Normal 0.83-4.51 [facility] Comment on above: Performed By: #### L 100.0100, L500.2500 ####[facility] [address] [place], [address] Absolute Neut 7.6 X10 3/uL Normal 2.0-7.7 [facility] Comment on above: Performed By: #### L 100.0100, L500.2500 ####[facility] [address] [place], [address] Basophils/100 WBC (Bld) 0.8 % Normal 0-1 [facility] Comment on above: Performed By: #### L 100.0100, L500.2500 ####[facility] [address] [place], [address] Eosinophils/100 WBC (Bld) 2.9 % Normal 0-5 [facility] Comment on above: Performed By: #### L 100.0100, L500.2500 ####[facility] [address] [place], [address] Erythrocyte distribution width (RBC) [Ratio] 14.1 % Normal 11.6-14.6 [facility] Comment on above: Performed By: #### L 100.0100, L500.2500 ####[facility] [address] [place], [address] Hematocrit (Bld) [Volume fraction] 38.9 % Normal 37-47 [facility] Comment on above: Performed By: #### L 100.0100, L500.2500 ####[facility] [address] [place], [address] Hemoglobin (Bld) [Mass/Vol] 12.3 g/dL Normal 12.0-15.0 [facility] Comment on above: Performed By: #### L 100.0100, L500.2500 ####[facility] [address] [place], [address] IG% 1.200 High 0.0-0.9 [facility] Comment on above: Result Comment: IG% - Immature Granulocytes (promyelocytes, myelocytes andmetamyelocytes) > 1% indicates that a LEFT SHIFT is Present. Performed By: #### L 100.0100, L500.2500 ####[facility] [address] [place], [address] Lymphocytes/100 WBC (Bld) 14.6 % Low 19-41 [facility] Comment on above: Performed By: #### L 100.0100, L500.2500 ####[facility] [address] [place], [address] MCH (RBC) [Entitic mass] 29.4 pg Normal 27.0-32.0 [facility] Comment on above: Performed By: #### L 100.0100, L500.2500 ####[facility] [address] [place], [address] MCHC (RBC) [Mass/Vol] 31.6 g/dL Low 32-36 [facility] Comment on above: Performed By: #### L 100.0100, L500.2500 ####[facility] [address] [place], [address] MCV (RBC) [Entitic vol] 93.1 fL Normal 81-99 [facility] Comment on above: Performed By: #### L 100.0100, L500.2500 ####[facility] [address] [place], [address] Monocytes/100 WBC (Bld) 6.3 % Normal 0-10 [facility] Comment on above: Performed By: #### L 100.0100, L500.2500 ####[facility] [address] [place], [address] Neutrophils/100 WBC (Bld) 74.2 % High 47-70 [facility] Comment on above: Performed By: #### L 100.0100, L500.2500 ####[facility] [address] [place], [address] Nucleated RBC (Bld) [#/Vol] 0 10*3/uL Normal 0-5 [facility] Comment on above: Performed By: #### L 100.0100, L500.2500 ####[facility] [address] [place], [address] Platelet mean volume (Bld) [Entitic vol] 9.5 fL Normal 6.2-12.0 [facility] Comment on above: Performed By: #### L 100.0100, L500.2500 ####[facility] [address] [place], [address] Platelets (Bld) [#/Vol] 349 10*3/uL Normal 150-450 [facility] Comment on above: Performed By: #### L 100.0100, L500.2500 ####[facility] [address] [place], [address] RBC (Bld) [#/Vol] 4.18 10*6/uL Low 4.2-5.4 [facility] Comment on above: Performed By: #### L 100.0100, L500.2500 ####[facility] [address] [place], [address] RDW SD 48.7 fl High 35.1-43.9 [facility] Comment on above: Performed By: #### L 100.0100, L500.2500 ####[facility] [address] [place], [address] WBC (Bld) [#/Vol] 10.2 10*3/uL Normal 4.4-11.0 [facility] Comment on above: Performed By: #### L 100.0100, L500.2500 ####[facility] [address] [place], [address] Culture, Blood (WB)on 2024 CUB No growth in [address] [facility] Comment on above: Performed By: #### M 200.1000 ####[facility] [facility] [address] [place], [address] Vancomycin trough [Mass/Vol] Ordered By: Fahad Cavanaugh on 09-18-2024 Vancomycin Level Trough 10.7 ug/mL 5.0-15.0 [facility] Comment on above: Recommended goal tro [...] therapy recommended for serious lifethreatening infections include:- Zidnenhetr-Ezbiuhgdgeiz-Uiojdbqvj (Ventilator/Healtcare Associated)-Sepsis PLEASE CONTACT PHARMACY SERVICES (#[id number]) FOR INTERPRETATIONOF RESULTS. Vancomycin, Trough Levelon 0 09-18-2024 VANCO, TROUGH 10.7 ug/mL Normal 5.0-15.0 [facility] Comment on above: Order Comment: Comme nts: DRAW 30 MIN PRIOR TO [id number] Result Comment: Zackery mmended goal trough ranges [...] therapy recommended for serious lifethreatening infections include:- Uojrwllsvr-Ahnaxluouysg-Oucrcqzko (Ventilator/Healtcare Associated)-SepsisPLEASE CONTACT PHARMACY SERVICES (#[id number]) FOR INTERPRETATIONOF RESULTS. Performed By: #### L 496.8807 ####[facility] [address] [place], [place], [id number] C. difficile DNA RANJIT+probe Q l (Unsp spec)Ordered By: Claire Mayorga on 09-17-2024 Clostridioides difficile (PCR) [facility] CDIFF (PCR)on 09-17-2024 CDIFF Normal [facility] Comment on above: Performed By: #### M 100.6796 ####[facility] [address] [place], [address] Culture, Anaerobic Any Sourc akosua 09-17-2024 CUAN UNK UNK Left Posterior Synovium - collected in [place] No anaerobic bacteria isolated. [facility] Comment on above: Performed By: #### M 100.2000, M600.2200, M300.2000, M100.3000, M300.3000, M600.2000, M100.4001 ####[facility] [address] [place], [address] CUAN UNK UNK Left Humeral Membrane - collected in [place] No anaerobic bacteria isolated. Normal [facility] Comment on above: Performed By: #### M 100.4001, M600.2000, M300.2000, M300.3000, M100.2000, M100.3000, M600.2200 ####[facility] [address] [place], [address] CUAN UNK UNK Left Glenosphere Membrane - collected in [place] No anaerobic bacteria isolated. Normal [facility] Comment on above: Performed By: #### M 100.3000, M300.2000, M600.2200, M300.3000, M100.2000, M600.2000, M100.4001 ####[facility] [address] [place], [address] CUAN Results called on 09/12/24-1023 by FOREST to [phone]. UNK UNK No anaerobic bacteria isolated. Normal [facility] Comment on above: Performed By: #### M 100.4001, M100.2900, M100.2000, M300.3000, L200.0400, M600.2000, M300.2000 ####[facility] [address] [place], [address] 12 Lead EKGon 09-16-2024 12 Lead EKG Normal [facility] Absolute neutrophil countOrd ered By: Emili Lee on 09-16-2024 Neutrophils (Bld) [#/Vol] 7.1 10*3/uL 2.0-7.7 [facility] Anion gap in Serum or Plasma Ordered By: Emili Lee on 09-16-2024 Anion gap [Moles/Vol] 7 mmol/L 5-15 [facility] Automated blood erythrocyte countOrdered By: Emili Lee on 09-16-2024 RBC (Bld) [#/Vol] 3.69 10*6/uL Low 4.2-5.4 [facility] Comment on above: Performed By: #### L 100.0100, L500.2500 ####[facility] [address] [place], [address] Automated blood hematocrit ( percentage)Ordered By: Emili Lee on 09-16-2024 Hematocrit (Bld) [Volume fraction] 35.3 % Low 37-47 [facility] Comment on above: Performed By: #### L 100.0100, L500.2500 ####[facility] [address] [place], [address] Automated lymphocyte count a s percentage of total leukocytesOrdered By: Emili Lee on 09-16-2024 Lymphocytes/100 WBC (Bld) 11.6 % Low 19-41 [facility] Comment on above: Performed By: #### L 100.0100, L500.2500 ####[facility] [address] [place], [address] BUN/creatinine ratioOrdered By: Emili Lee on 09-16-2024 Urea nitrogen/Creatinine [Mass ratio] 25.4 mg/mg High [facility]20 [facility] Basic Metabolic Profile (BMP )on 09-16-2024 BUN/CRE 25.4 RATIO High [facility]20 [facility] Comment on above: Performed By: #### L 100.0100, L500.2500 ####[facility] [address] [place], [address] ECRCL 65.28 ml/min Normal 50-250 [facility] Comment on above: Performed By: #### L 100.0100, L500.2500 ####[facility] [address] [place], [address] GAP 7 Normal 5-15 [facility] Comment on above: Performed By: #### L 100.0100, L500.2500 ####[facility] [address] [place], [address] GFR/1.73 sq M.predicted among non-blacks MDRD (S/P/Bld) [Vol rate/Area] 64 mL/min/{1.73_m2} Normal >60 [facility] Comment on above: Result Comment: mL/m in/1.73m2 CKD-EPI Creatinine Equation (2020) Performed By: #### L 100.0100, L500.2500 ####[facility] [address] [place], [address] Basophil percentageOrdered B y: Emili Lee on 09-16-2024 Basophils/100 WBC (Bld) 0.4 % Normal 0-1 [facility] Comment on above: Performed By: #### L 100.0100, L500.2500 ####[facility] [address] [place], [address] Body Fluid Culton 09-16-2024 BFC Normal [facility] Comment on above: Performed By: #### M 100.4001, M100.2900, M100.2000, M300.3000, L200.0400, M600.2000, M300.2000 ####[facility] [address] [place], [address] CBC W/Diff, Automatedon 08-31 Absolute Lymph 1.07 X10 3/uL Normal 0.83-4.51 [facility] Comment on above: Performed By: #### L 100.0100, L500.2500 ####[facility] [address] [place], [address] Absolute Neut 7.1 X10 3/uL Normal 2.0-7.7 [facility] Comment on above: Performed By: #### L 100.0100, L500.2500 ####[facility] [address] [place], [address] IG% 0.900 Normal 0.0-0.9 [facility] Comment on above: Result Comment: IG% - Immature Granulocytes (promyelocytes, myelocytes andmetamyelocytes) > 1% indicates that a LEFT SHIFT is Present. Performed By: #### L 100.0100, L500.2500 ####[facility] [address] [place], [address] Nucleated RBC (Bld) [#/Vol] 0 10*3/uL Normal 0-5 [facility] Comment on above: Performed By: #### L 100.0100, L500.2500 ####[facility] [address] [place], [address] RDW SD 50.0 fl High 35.1-43.9 [facility] Comment on above: Performed By: #### L 100.0100, L500.2500 ####[facility] [address] [place], [address] Carbon dioxide, total [Moles /volume] in Central venous bloodOrdered By: Emili Lee on 09-16-2024 CO2 [Moles/Vol] 32.4 mmol/L High 21.0-32.0 [facility] Comment on above: Performed By: #### L 100.0100, L500.2500 ####[facility] [address] [place], [address] Chloride assayOrdered By: Anna Lee on 09-16-2024 Chloride [Moles/Vol] 101 mmol/L Normal 98-108 [facility] Comment on above: Performed By: #### L 100.0100, L500.2500 ####[facility] [address] [place], [address] Consultation - Infectious Dx on 09-16-2024 Consultation - Infectious Dx Normal [facility] Electrocardiogram reportOrde red By: Tejal Holly on 09-16-2024 EKG study [facility] Services [address] [facility] [place] [address] 12 Lead EKG 09/12/24 0804 MR#: [id number] Acct: [id number] Name: OSCAR WOO Rep #:[id number] : 1950 74 From: Tejal aquino MD Attending Dr: Dr. Fahad Cavanaugh MD Status: ADM IN Ordering Dr: Omar Watlers MD Date: 08/31 01/24 Location: [facility] Sex: F C Admitted: 09/14/24 Test Reason [...] ECG Confirmed by ELAYNE COTTER, MARIELENA ([id number]), sound editor TRINITY ORTIZ ([id number]) on09/16/2024 11:30:54 AM Referred By: Fahad Cavanaugh Confirmed By: MARIELENA HOLLY MD 09/16/24 1130 Date _ Tejal Holly MD CC: Dr. Omar Walters MD; Dr. Kamar Grimes MD; Dr. Fahad Cavanaugh MD ~ Signed [facility] Work Phone: Eosinophil percentageOrdered By: Emili Lee on 09-16-2024 Eosinophils/100 WBC (Bld) 3.2 % Normal 0-5 [facility] Comment on above: Performed By: #### L 100.0100, L500.2500 ####[facility] [address] [place], [address] Erythrocyte distribution wid th ratioOrdered By: Emili Lee on 09-16-2024 Erythrocyte distribution width (RBC) [Ratio] 14.3 % Normal 11.6-14.6 [facility] Comment on above: Performed By: #### L 100.0100, L500.2500 ####[facility] [address] [place], [place], [address] Erythrocyte distribution wid th standard deviationOrdered By: Emili Lee on 09-16-2024 Erythrocyte distribution width (RBC) [Entitic vol] 50.0 fL High 35.1-43.9 [facility] Estimation of creatinine darrell aranceOrdered By: Emili Lee on 09-16-2024 Estimated Creatinine Clearance Calc 65.28 ml/min 50-250 [facility] GFR/1.73 sq M.predicted hans g non-blacks MDRD (S/P/Bld) [Vol rate/Area]Ordered By: Emili Lee on 09-16-2024 Estimated GFR (MDRD) Non-Af Amer 64 >60 [facility] Comment on above: mL/min/1.73m2 CKD-EP I Creatinine Equation (2020) Hemoglobin measurementOrdere d By: Emili Lee on 09-16-2024 Hemoglobin (Bld) [Mass/Vol] 11.0 g/dL Low 12.0-15.0 [facility] Comment on above: Performed By: #### L 100.0100, L500.2500 ####[facility] [address] [place], [place], [address] Immature granulocytes/100 WB C Auto (Bld)Ordered By: Emili Lee on 09-16-2024 Immature granulocytes/100 WBC (Bld) 0.900 % 0.0-0.9 [facility] Comment on above: IG% - Immature Granu locytes (promyelocytes, myelocytes and metamyelocytes) > 1% indicates that a LEFT SHIFT is Present. Lymphocytes Auto (Unsp spec) [#/Vol]Ordered By: Emili Lee on 09-16-2024 Lymphocytes (Bld) [#/Vol] 1.07 10*3/uL 0.83-4.51 [facility] MCV (mean corpuscular volume ) determinationOrdered By: Emili Lee on 09-16-2024 MCV (RBC) [Entitic vol] 95.7 fL Normal 81-99 [facility] Comment on above: Performed By: #### L 100.0100, L500.2500 ####[facility] [address] [place], [address] Mean corpuscular hemoglobin (MCH) determinationOrdered By: Emili Lee on 09-16-2024 MCH (RBC) [Entitic mass] 29.8 pg Normal 27.0-32.0 [facility] Comment on above: Performed By: #### L 100.0100, L500.2500 ####[facility] [address] [place], [address] Mean corpuscular hemoglobin concentration (MCHC) determinationOrdered By: Emili Lee on 09-16-2024 MCHC (RBC) [Mass/Vol] 31.2 g/dL Low 32-36 [facility] Comment on above: Performed By: #### L 100.0100, L500.2500 ####[facility] [address] [place], [address] Mean platelet volume determi nationOrdered By: Emili Lee on 09-16-2024 Platelet mean volume (Bld) [Entitic vol] 9.4 fL Normal 6.2-12.0 [facility] Comment on above: Performed By: #### L 100.0100, L500.2500 ####[facility] [address] [place], [address] Monocyte percentageOrdered B y: Emili Lee on 09-16-2024 Monocytes/100 WBC (Bld) 7.0 % Normal 0-10 [facility] Comment on above: Performed By: #### L 100.0100, L500.2500 ####[facility] [address] [place], [address] Neutrophil percentageOrdered By: Emili Lee on 09-16-2024 Neutrophils/100 WBC (Bld) 76.9 % High 47-70 [facility] Comment on above: Performed By: #### L 100.0100, L500.2500 ####[facility] [address] [place], [address] Nucleated red blood cell per centageOrdered By: Emili Lee on 09-16-2024 Nucleated RBC/100 WBC (Bld) [Ratio] 0 % 0-5 [facility] Platelet countOrdered By: Anna Lee on 09-16-2024 Platelets (Bld) [#/Vol] 261 10*3/uL Normal 150-450 [facility] Comment on above: Performed By: #### L 100.0100, L500.2500 ####[facility] [address] [facility] [address] Potassium measurement (mass/ volume)Ordered By: Emili Lee on 09-16-2024 Potassium [Moles/Vol] 4.8 mmol/L Normal 3.3-5.1 [facility] Comment on above: Performed By: #### L 100.0100, L500.2500 ####[facility] [address] [place], [address] Serum creatinine measurement (mass/volume)Ordered By: Emili Lee on 09-16-2024 Creatinine [Mass/Vol] 0.93 mg/dL Normal 0.70-1.20 [facility] Comment on above: Performed By: #### L 100.0100, L500.2500 ####[facility] [address] [place], [address] Serum glucose measurement (m ass/volume)Ordered By: Emili Lee on 09-16-2024 Glucose [Mass/Vol] 108 mg/dL High 70-99 [facility] Comment on above: Performed By: #### L 100.0100, L500.2500 ####[facility] [address] [place], [address] Serum or plasma calcium lisa urement (mass/volume)Ordered By: Emili Lee on 09-16-2024 Calcium [Mass/Vol] 8.9 mg/dL Normal 7.6-11.0 [facility] Comment on above: Performed By: #### L 100.0100, L500.2500 ####[facility] [address] [place], [address] Serum or plasma urea nitroge n measurement (mass/volume)Ordered By: Emili Lee on 09-16-2024 Urea nitrogen [Mass/Vol] 24 mg/dL High 4-19 [facility] Comment on above: Performed By: #### L 100.0100, L500.2500 ####[facility] [address] [place], [address] Sodium levelOrdered By: Stephen Lee on 09-16-2024 Sodium [Moles/Vol] 140 mmol/L Normal 133-145 [facility] Comment on above: Performed By: #### L 100.0100, L500.2500 ####[facility] [address] [place], [address] Vancomycin [Mass/Vol]Ordered By: Fahad Cavanaugh on 09-16-2024 Random Vancomycin Level 14.4 ug/mL 0.0-15.0 [facility] Comment on above: VANCOMYCIN STANDARD DRUG THERAPY: CRITICAL VALUE IS > 15.0 mg/L VANCOMYCIN HIGH INTENSITY THERAPY: CRITICAL VALUE IS > 20.0 mg/L PLEASE CONTACT PHARMACY SERVICES (#[id number]) FOR INTERPRETATIONOF RESULTS. THIS RESULT DOES NOT REPRESENT A PEAK OR TROUGHLEVEL FOR THIS DRUG. Vancomycin, Random Levelon 0 09-16-2024 VANCO, RANDOM 14.4 ug/mL Normal 0.0-15.0 [facility] Comment on above: Result Comment: VANC OMYCIN STANDARD DRUG THERAPY: CRITICAL VALUE IS > 15.0 mg/LVANCOMYCIN HIGH INTENSITY THERAPY: CRITICAL VALUE IS > 20.0 mg/LPLEASE CONTACT PHARMACY SERVICES (#[id number]) FOR INTERPRETATIONOF RESULTS. THIS RESULT DOES NOT REPRESENT A PEAK OR TROUGHLEVEL FOR THIS DRUG. Performed By: #### L 501.8850 ####[facility] [address] [place], [address] White blood cell (WBC) count Ordered By: Emili Lee on 09-16-2024 WBC (Bld) [#/Vol] 9.2 10*3/uL Normal 4.4-11.0 [facility] Comment on above: Performed By: #### L 100.0100, L500.2500 ####[facility] [address] [place], [address] Wound Cultureon 09-16-2024 [facility] Comment on above: Performed By: #### M 100.4001, M600.2000, M300.2000, M300.3000, M100.2000, M100.3000, M600.2200 ####[facility] [address] [place], [address] [facility] Comment on above: Performed By: #### M 100.2000, M600.2200, M300.2000, M100.3000, M300.3000, M600.2000, M100.4001 ####[facility] [address] [place], [address] [facility] Comment on above: Performed By: #### M 100.3000, M300.2000, M600.2200, M300.3000, M100.2000, M600.2000, M100.4001 ####[facility] [address] [place], [address] Basic Metabolic Profile (BMP )on 09-15-2024 BUN/CRE 29.0 RATIO High 10-20 [facility] Comment on above: Performed By: #### L 500.2500, L100.0500 ####[facility] [address] [place], [address] Calcium [Mass/Vol] 8.4 mg/dL Normal 7.6-11.0 [facility] Comment on above: Performed By: #### L 500.2500, L100.0500 ####[facility] [address] [place], [address] Chloride [Moles/Vol] 99 mmol/L Normal 98-108 [facility] Comment on above: Performed By: #### L 500.2500, L100.0500 ####[facility] [address] [place], [address] CO2 [Moles/Vol] 24.7 mmol/L Normal 21.0-32.0 [facility] Comment on above: Performed By: #### L 500.2500, L100.0500 ####[facility] [address] [place], [address] Creatinine [Mass/Vol] 1.12 mg/dL Normal 0.70-1.20 [facility] Comment on above: Performed By: #### L 500.2500, L100.0500 ####[facility] [address] [place], [address] ECRCL 54.21 ml/min Normal 50-250 [facility] Comment on above: Performed By: #### L 500.2500, L100.0500 ####[facility] [address] [place], [address] GAP 11 Normal 5-15 [facility] Comment on above: Performed By: #### L 500.2500, L100.0500 ####[facility] [address] [place], [address] GFR/1.73 sq M.predicted among non-blacks MDRD (S/P/Bld) [Vol rate/Area] 51 mL/min/{1.73_m2} Low >60 [facility] Comment on above: Result Comment: mL/m in/1.73m2 CKD-EPI Creatinine Equation (2020) Performed By: #### L 500.2500, L100.0500 ####[facility] [address] [place], [address] Glucose [Mass/Vol] 100 mg/dL High 70-99 [facility] Comment on above: Performed By: #### L 500.2500, L100.0500 ####[facility] [address] [place], [address] Potassium [Moles/Vol] 4.1 mmol/L Normal 3.3-5.1 [facility] Comment on above: Result Comment: Hemo lysis present, Results??could be affected.?? Performed By: #### L 500.2500, L100.0500 ####[facility] [address] [place], [address] Sodium [Moles/Vol] 135 mmol/L Normal 133-145 [facility] Comment on above: Performed By: #### L 500.2500, L100.0500 ####[facility] [address] [place], [address] Urea nitrogen [Mass/Vol] 33 mg/dL High 4-19 [facility] Comment on above: Performed By: #### L 500.2500, L100.0500 ####[facility] [address] [place], [address] CBC-Complete Blood Cnt No Di ffon 09-15-2024 Erythrocyte distribution width (RBC) [Ratio] 14.1 % Normal 11.6-14.6 [facility] Comment on above: Performed By: #### L 500.2500, L100.0500 ####[facility] [address] [place], [address] Hematocrit (Bld) [Volume fraction] 36.4 % Low 37-47 [facility] Comment on above: Performed By: #### L 500.2500, L100.0500 ####[facility] [address] [place], [address] Hemoglobin (Bld) [Mass/Vol] 11.5 g/dL Low 12.0-15.0 [facility] Comment on above: Performed By: #### L 500.2500, L100.0500 ####[facility] [address] [place], [address] MCH (RBC) [Entitic mass] 29.4 pg Normal 27.0-32.0 [facility] Comment on above: Performed By: #### L 500.2500, L100.0500 ####[facility] [address] [place], [address] MCHC (RBC) [Mass/Vol] 31.6 g/dL Low 32-36 [facility] Comment on above: Performed By: #### L 500.2500, L100.0500 ####[facility] [address] [place], [address] MCV (RBC) [Entitic vol] 93.1 fL Normal 81-99 [facility] Comment on above: Performed By: #### L 500.2500, L100.0500 ####[facility] [address] [place], [address] Platelet mean volume (Bld) [Entitic vol] 10.0 fL Normal 6.2-12.0 [facility] Comment on above: Performed By: #### L 500.2500, L100.0500 ####[facility] [address] [place], [address] Platelets (Bld) [#/Vol] 238 10*3/uL Normal 150-450 [facility] Comment on above: Performed By: #### L 500.2500, L100.0500 ####[facility] [address] [place], [address] RBC (Bld) [#/Vol] 3.91 10*6/uL Low 4.2-5.4 [facility] Comment on above: Performed By: #### L 500.2500, L100.0500 ####[facility] [address] [place], [address] RDW SD 48.1 fl High 35.1-43.9 [facility] Comment on above: Performed By: #### L 500.2500, L100.0500 ####[facility] [address] [place], [address] WBC (Bld) [#/Vol] 9.6 10*3/uL Normal 4.4-11.0 [facility] Comment on above: Performed By: #### L 500.2500, L100.0500 ####[facility] [address] [place], [address] Chest PA and Lateralon 09-15 Chest PA and Lateral Normal [facility] M100.019on 09-15-2024 M100.019 Negative Normal [facility] Comment on above: Performed By: #### M 100.638, M100.019 ####[facility] [address] [place], [address] RESPIRATORY PANEL MOLECULARo n 09-15-2024 RP PANEL Normal [facility] Comment on above: Performed By: #### M 100.638, M100.019 ####[facility] [address] [place], [address] Respiratory pathogens DNA an d RNA panel RANJIT+probe (Resp)Ordered By: Emili Lee on 09-15-2024 Respiratory Panel (PCR) [facility] Udnl-ryq-8Jvtducw By: Emili Lee on 09-15-2024 SARS-CoV-2 (COVID-19) RNA RANJIT+probe Ql (Unsp spec) [facility] Vancomycin, Trough Levelon 0 09-15-2024 VANCO, TROUGH 22.8 ug/mL High 5.0-15.0 [facility] Comment on above: Order Comment: Comme nts: DRAW 30 MIN PRIOR TO [id number] Result Comment: Zackery mmended goal trough ranges [...] therapy recommended for serious lifethreatening infections include:- Uazvgpffmn-Xyyscnjsmfct-Mtjnrbbty (Ventilator/Healtcare Associated)-SepsisPLEASE CONTACT PHARMACY SERVICES (#9395) FOR INTERPRETATIONOF RESULTS. Performed By: #### L 501.8820 ####[facility] [address] [place], [address] Basic Metabolic Profile (BMP )on 09-14-2024 BUN/CRE 18.8 RATIO Normal 10-20 [facility] Comment on above: Performed By: #### L 500.2500, L100.0500 ####[facility] [address] [place], [address] Calcium [Mass/Vol] 8.3 mg/dL Normal 7.6-11.0 [facility] Comment on above: Performed By: #### L 500.2500, L100.0500 ####[facility] [address] [place], [address] Chloride [Moles/Vol] 93 mmol/L Low 98-108 [facility] Comment on above: Performed By: #### L 500.2500, L100.0500 ####[facility] [address] [place], [address] CO2 [Moles/Vol] 26.4 mmol/L Normal 21.0-32.0 [facility] Comment on above: Performed By: #### L 500.2500, L100.0500 ####[facility] [address] [place], [address] Creatinine [Mass/Vol] 1.28 mg/dL High 0.70-1.20 [facility] Comment on above: Performed By: #### L 500.2500, L100.0500 ####[facility] [address] [place], [address] ECRCL 47.43 ml/min Low 50-250 [facility] Comment on above: Performed By: #### L 500.2500, L100.0500 ####[facility] [address] [place], [address] GAP 12 Normal 5-15 [facility] Comment on above: Performed By: #### L 500.2500, L100.0500 ####[facility] [address] [place], [address] GFR/1.73 sq M.predicted among non-blacks MDRD (S/P/Bld) [Vol rate/Area] 44 mL/min/{1.73_m2} Low >60 [facility] Comment on above: Result Comment: mL/m in/1.73m2 CKD-EPI Creatinine Equation (2020) Performed By: #### L 500.2500, L100.0500 ####[facility] [address] [place], [address] Glucose [Mass/Vol] 111 mg/dL High 70-99 [facility] Comment on above: Performed By: #### L 500.2500, L100.0500 ####[facility] [address] [place], [address] Potassium [Moles/Vol] 4.0 mmol/L Normal 3.3-5.1 [facility] Comment on above: Performed By: #### L 500.2500, L100.0500 ####[facility] [address] [place], [address] Sodium [Moles/Vol] 131 mmol/L Low 133-145 [facility] Comment on above: Performed By: #### L 500.2500, L100.0500 ####[facility] [address] [place], [address] Urea nitrogen [Mass/Vol] 24 mg/dL High 4-19 [facility] Comment on above: Performed By: #### L 500.2500, L100.0500 ####[facility] [address] [place], [address] CBC-Complete Blood Cnt No Di ffon 09-14-2024 Erythrocyte distribution width (RBC) [Ratio] 14.0 % Normal 11.6-14.6 [facility] Comment on above: Performed By: #### L 500.2500, L100.0500 ####[facility] [address] [place], [address] Hematocrit (Bld) [Volume fraction] 32.5 % Low 37-47 [facility] Comment on above: Performed By: #### L 500.2500, L100.0500 ####[facility] [address] [place], [address] Hemoglobin (Bld) [Mass/Vol] 10.2 g/dL Low 12.0-15.0 [facility] Comment on above: Performed By: #### L 500.2500, L100.0500 ####[facility] [address] [place], [address] MCH (RBC) [Entitic mass] 29.6 pg Normal 27.0-32.0 [facility] Comment on above: Performed By: #### L 500.2500, L100.0500 ####[facility] [address] [place], [address] MCHC (RBC) [Mass/Vol] 31.4 g/dL Low 32-36 [facility] Comment on above: Performed By: #### L 500.2500, L100.0500 ####[facility] [address] [place], [address] MCV (RBC) [Entitic vol] 94.2 fL Normal 81-99 [facility] Comment on above: Performed By: #### L 500.2500, L100.0500 ####[facility] [address] [place], [address] Platelet mean volume (Bld) [Entitic vol] 10.1 fL Normal 6.2-12.0 [facility] Comment on above: Performed By: #### L 500.2500, L100.0500 ####[facility] [address] [place], [address] Platelets (Bld) [#/Vol] 239 10*3/uL Normal 150-450 [facility] Comment on above: Performed By: #### L 500.2500, L100.0500 ####[facility] [address] [place], [address] RBC (Bld) [#/Vol] 3.45 10*6/uL Low 4.2-5.4 [facility] Comment on above: Performed By: #### L 500.2500, L100.0500 ####[facility] [address] [place], [address] RDW SD 48.3 fl High 35.1-43.9 [facility] Comment on above: Performed By: #### L 500.2500, L100.0500 ####[facility] [address] [place], [address] WBC (Bld) [#/Vol] 11.3 10*3/uL High 4.4-11.0 [facility] Comment on above: Performed By: #### L 500.2500, L100.0500 ####[facility] [address] [place], [address] Gram Stainon 09-14-2024 GS UNK UNK Left Posterior Synovium - collected in [place] Gram Stain Very Rare Gram positive cocci Normal [facility] Comment on above: Performed By: #### M 100.2000, M600.2200, M300.2000, M100.3000, M300.3000, M600.2000, M100.4001 ####[facility] [address] [place], [address] GS UNK UNK Left Glenosphere Membrane - collected in [place] Gram Stain Very Rare Gram positive cocci 1+ White Blood Cells Normal [facility] Comment on above: Performed By: #### M 100.3000, M300.2000, M600.2200, M300.3000, M100.2000, M600.2000, M100.4001 ####[facility] [address] [place], [address] GS UNK UNK Left Humeral Membrane - collected in [place] Gram Stain 4+ Gram positive cocci in clusters Normal [facility] Comment on above: Performed By: #### M 100.4001, M600.2000, M300.2000, M300.3000, M100.2000, M100.3000, M600.2200 ####[facility] [address] [place], [address] Bacteria identified Anaer cx Nom (Unsp spec)Ordered By: Fahad Cavanaugh on 09-13-2024 Anaerobic Culture No anaerobic bacteri a isolated. [facility] Bedside Glucoseon 09-13-2024 FINGERSTICK GLU 88 mg/dL Normal 74-106 [facility] Comment on above: Result Comment: ROSA ISELA GEMENT OF PATIENT CARE PER NURSING PROTOCOL Performed By: #### L 501.080 ####[facility] [address] [place], [address] Blood cultureOrdered By: Jonathan Cavanaugh on 09-13-2024 Bacteria identified Cx Nom (Bld) No growth in 5 days. [facility] deOrdered By: Fahad Cavanaugh on 09-13-2024 Bedside Glucose (Misc Panel) 88 mg/dL 74-106 [facility] Comment on above: MANAGEMENT OF PATIEN T CARE PER NURSING PROTOCOL Gram stainOrdered By: Fahad Cavanaugh on 09-13-2024 Microscopic observation Gram stain Nom (Unsp spec) [facility] MR/POSTOP.ANEon 09-13-2024 MR/POSTOP.ANE Normal [facility] MR/OOHFWXCN4et 09-13-2024 MR/POSTOPAN2 Normal [facility] MRSA/SAID NASAL SCREENon MRSA+SAID SCRN Reason for Exam: PRE OP MRSA MRSA Negative S. AUREUS S. aureus PositiveA Normal [facility] Comment on above: Performed By: #### M 100.651 ####[facility] [address] [place], [address] Operative Reporton Operative Report Normal [facility] Routine wound cultureOrdered By: Fahad Cavanaugh on 09-13-2024 Wound Culture Staphylococcus aureus Abnormal [facility] Shoulder min 2 Viewson 09-13 Shoulder min [address] [facility] CBC-Complete Blood Cnt No Di ffon 09-12-2024 Erythrocyte distribution width (RBC) [Ratio] 13.7 % Normal 11.6-14.6 [facility] Comment on above: Performed By: #### L 501.5200, L100.0500 ####[facility] [address] [place], [address] Hematocrit (Bld) [Volume fraction] 37.2 % Normal 37-47 [facility] Comment on above: Performed By: #### L 501.5200, L100.0500 ####[facility] [address] [place], [address] Hemoglobin (Bld) [Mass/Vol] 12.2 g/dL Normal 12.0-15.0 [facility] Comment on above: Performed By: #### L 501.5200, L100.0500 ####[facility] [address] [place], [address] MCH (RBC) [Entitic mass] 30.0 pg Normal 27.0-32.0 [facility] Comment on above: Performed By: #### L 501.5200, L100.0500 ####[facility] [address] [place], [address] MCHC (RBC) [Mass/Vol] 32.8 g/dL Normal 32-36 [facility] Comment on above: Performed By: #### L 501.5200, L100.0500 ####[facility] [address] [place], [address] MCV (RBC) [Entitic vol] 91.6 fL Normal 81-99 [facility] Comment on above: Performed By: #### L 501.5200, L100.0500 ####[facility] [address] [place], [address] Platelet mean volume (Bld) [Entitic vol] 10.1 fL Normal 6.2-12.0 [facility] Comment on above: Performed By: #### L 501.5200, L100.0500 ####[facility] [address] [place], [address] Platelets (Bld) [#/Vol] 230 10*3/uL Normal 150-450 [facility] Comment on above: Performed By: #### L 501.5200, L100.0500 ####[facility] [address] [place], [address] RBC (Bld) [#/Vol] 4.06 10*6/uL Low 4.2-5.4 [facility] Comment on above: Performed By: #### L 501.5200, L100.0500 ####[facility] [address] [place], [address] RDW SD 47.1 fl High 35.1-43.9 [facility] Comment on above: Performed By: #### L 501.5200, L100.0500 ####[facility] [address] [place], [address] WBC (Bld) [#/Vol] 10.0 10*3/uL Normal 4.4-11.0 [facility] Comment on above: Performed By: #### L 501.5200, L100.0500 ####[facility] [address] [place], [address] Gram Stainon 09-12-2024 GS Results called on 09/12/24-1023 by FOREST to [phone]. UNK UNK Test not performed Normal [facility] Comment on above: Performed By: #### M 100.4001, M100.2900, M100.2000, M300.3000, L200.0400, M600.2000, M300.2000 ####[facility] [address] [place], [address] MR/PAT.ANEon 09-12-2024 MR/PAT.ANE Normal [facility] MR/PAT.ANE Normal [facility] MRSA screenOrdered By: Mike Cavanaugh on 09-12-2024 Nasal Screen MRSA/MSSA [facility] Magnesiumon 09-12-2024 Magnesium [Mass/Vol] 1.7 mg/dL Normal 1.5-2.2 [facility] Comment on above: Performed By: #### L 501.5200, L100.0500 ####[facility] [address] [place], [address] Magnesium (Unsp spec) [Mass/ Vol]Ordered By: Omar Walters on 09-12-2024 Magnesium [Mass/Vol] 1.7 mg/dL 1.5-2.2 [facility] Appearance (Syn fld)Ordered By: Fahad Cavanaugh on 09-11-2024 Synovial Fluid Appearance Cloudy CLEAR [facility] Bacteria identified Anaer cx Nom (Unsp spec)Ordered By: Fahad Cavanaugh on 09-11-2024 Anaerobic Culture No anaerobic bacteri a isolated. [facility] Basic Metabolic Profile (BMP )on 09-11-2024 BUN/CRE 28.5 RATIO High 10-20 [facility] Comment on above: Performed By: #### L 500.2500 ####[facility] [address] [place], [address] Calcium [Mass/Vol] 9.5 mg/dL Normal 7.6-11.0 [facility] Comment on above: Performed By: #### L 500.2500 ####[facility] [address] [place], [address] Chloride [Moles/Vol] 96 mmol/L Low 98-108 [facility] Comment on above: Performed By: #### L 500.2500 ####[facility] [address] [place], [address] CO2 [Moles/Vol] 31.1 mmol/L Normal 21.0-32.0 [facility] Comment on above: Performed By: #### L 500.2500 ####[facility] [address] [place], [address] Creatinine [Mass/Vol] 1.01 mg/dL Normal 0.70-1.20 [facility] Comment on above: Performed By: #### L 500.2500 ####[facility] [address] [place], [address] GAP 11 Normal 5-15 [facility] Comment on above: Performed By: #### L 500.2500 ####[facility] [address] [place], [address] GFR/1.73 sq M.predicted among non-blacks MDRD (S/P/Bld) [Vol rate/Area] 58 mL/min/{1.73_m2} Low >60 [facility] Comment on above: Result Comment: mL/m in/1.73m2 CKD-EPI Creatinine Equation (2020) Performed By: #### L 500.2500 ####[facility] [address] [place], [address] Glucose [Mass/Vol] 105 mg/dL High 70-99 [facility] Comment on above: Performed By: #### L 500.2500 ####[facility] [address] [place], [address] Potassium [Moles/Vol] 3.3 mmol/L Normal 3.3-5.1 [facility] Comment on above: Performed By: #### L 500.2500 ####[facility] [address] [place], [address] Sodium [Moles/Vol] 137 mmol/L Normal 133-145 [facility] Comment on above: Performed By: #### L 500.2500 ####[facility] [address] [place], [address] Urea nitrogen [Mass/Vol] 29 mg/dL High 4-19 [facility] Comment on above: Performed By: #### L 500.2500 ####[facility] [address] [place], [address] Body fluid cultureOrdered By : Fahad Cavanaugh on 09-11-2024 Body Fluid Culture Meth. resistant Stap h. aureus Abnormal [facility] Cells Counted Total (Syn fld ) [#]Ordered By: Fahad Cavanaugh on 09-11-2024 Synovial Fluid Total Cells Counted 43.9600 10^3/uL High 0.000-0.000 [facility] Comment on above: This is the Total Nu mber of Nucleated Cell Types in the Body Fluid. Color (Syn fld)Ordered By: Celine Cavanaugh on 09-11-2024 Synovial Fluid Color Yellow Pale Yellow [facility] Gram stainOrdered By: Fahad Cavanaugh on 09-11-2024 Microscopic observation Gram stain Nom (Unsp spec) [facility] Lymphocytes/100 WBC (Bld)Ord ered By: Fahad Cavanaugh on 09-11-2024 Synovial Fluid Lymphocytes 4 % [facility] Monocytes/100 WBC (Syn fld)O rdered By: Fahad Cavanaugh on 09-11-2024 Synovial Fluid Monocytes 2 % [facility] Mononuclear cells Auto (Syn fld) [#/Vol]Ordered By: Fahad Cavanaugh on 09-11-2024 Synovial Fluid Mononuclear WBCs 3.460 10^3/ul [facility] Mononuclear cells/100 WBC (S yn fld)Ordered By: Fahad Cavanaugh on 09-11-2024 Synovial Fluid Mononuclear WBCs % 9.0 % [facility] Neutrophils/100 WBC (Syn fld )Ordered By: Fahad Cavanaugh on 09-11-2024 Synovial Fluid Neutrophils 94 % High 0-25 [facility] Pathologist review Fahad (Unsp spec) [Interp]Ordered By: Fahad Cavanaugh on 09-11-2024 Synovial Fluid Pathologist Comment May follow [facility] Polymorphonuclear cells Auto (Syn fld) [#/Vol]Ordered By: Fahad Cavanaugh on 09-11-2024 Synovial Fluid Polynuclear WBCs 34.879 10^3/uL [facility] Polymorphonuclear cells/100 WBC Auto (Syn fld)Ordered By: Fahad Cavanaugh on 09-11-2024 Synovial Fluid Polynuclear WBCs % 91.0 % [facility] RBC (Syn fld) [#/Vol]Ordered By: Fahad Cavanaugh on 09-11-2024 Synovial Fluid RBC 0.015 10^6/uL High 0-0 [facility] Specimen source Nom (Body fl d)Ordered By: Fahad Cavanaugh on 09-11-2024 Synovial Fluid Source SHOULDER [facility] Viscosity Ql (Syn fld)Ordere d By: Fahad Cavanaugh on 09-11-2024 Synovial Fluid Viscosity Viscous HIGH [facility] WBC Auto (Syn fld) [#/Vol]Or dered By: Fahad Cavanaugh on 09-11-2024 Synovial Fluid WBC 43.6850 10^3/uL High 0.000-0.002 [facility] C-REACTIVE PROTEINon 025 CRP 13.29 mg/dl High 0.00 - 0.90 [facility] Comment on above: Performed By: #### 2 [id number] #### [facility],[address] [place] [address] CBC + DIFFon 09-10-2024 Baso # 0.03 x10EE3/UL Normal 0.00 - 0.10 [facility] Comment on above: Performed By: #### 2 39048 #### [facility],[address] [place] [address] Basophils/100 WBC (Bld) 0.3 % Normal 0.0 - 2.0 [facility] Comment on above: Performed By: #### 2 18110 #### [facility],[address] [place] [address] CBC + DIFF Normal [facility] Comment on above: Result Comment: CBC- COMPLETE BLOOD COUNT Performed By: #### 2 49375 #### [facility],[address] [place] [address] EO # 0.22 x10EE3/UL Normal 0.00 - 0.50 [facility] Comment on above: Performed By: #### 2 83338 #### [facility],[address] [place] [address] Eosinophils/100 WBC (Bld) 2.2 % Normal 0.0 - 7.0 [facility] Comment on above: Performed By: #### 2 48860 #### [facility],[address] [place] [address] Erythrocyte distribution width (RBC) [Ratio] 13.4 % Normal 12.0 - 15.6 [facility] Comment on above: Performed By: #### 2 06692 #### [facility],[address] [place], [place] [address] Hematocrit (Bld) [Volume fraction] 39.5 % Normal 34.0 - 46.0 [facility] Comment on above: Performed By: #### 2 77862 #### [facility],[address] [place] [address] Hemoglobin (Bld) [Mass/Vol] 13.6 g/dL Normal 12.0 - 16.0 [facility] Comment on above: Performed By: #### 2 88573 #### [facility],[address] [place] [address] Lymph # 1.07 x10EE3/UL Normal 0.80 - 2.80 [facility] Comment on above: Performed By: #### 2 63552 #### [facility],[address] [place] [address] Lymphocytes/100 WBC (Bld) 10.6 % Low 20.0 - 45.0 [facility] Comment on above: Performed By: #### 2 12323 #### [facility],[address] [place] [address] MANUAL DIFF N/A Normal [facility] Comment on above: Performed By: #### 2 46987 #### [facility],[address] [place] [address] MCH (RBC) [Entitic mass] 31 pg Normal 27 - 33 [facility] Comment on above: Performed By: #### 2 43196 #### [facility],[address] [place] [address] MCHC 35 X10 3 Normal 32 - 36 [facility] Comment on above: Performed By: #### 2 69091 #### [facility],[address] [place] [address] MCV (RBC) [Entitic vol] 90 fL Normal 80 - 99 [facility] Comment on above: Performed By: #### 2 93090 #### [facility],[address] [place] [address] Dolores # 1.00 x10EE3/UL Normal 0.20 - 1.00 [facility] Comment on above: Performed By: #### 2 30840 #### [facility],[address] [place] [address] MONOS % 9.9 % Normal 0.0 - 10.0 [facility] Comment on above: Performed By: #### 2 07398 #### [facility],[address] [place] [address] Morphology Fahad (Bld) [Interp] N/A Normal [facility] Comment on above: Performed By: #### 2 28392 #### [facility],[address] [place] [address] Neut # 7.73 x10EE3/UL High 1.50 - 7.10 [facility] Comment on above: Performed By: #### 2 83010 #### [facility],[address] [place] [address] Neutrophils/100 WBC (Bld) 77.0 % High 46.0 - 76.0 [facility] Comment on above: Performed By: #### 2 16854 #### [facility],[address] [place] [address] PLATELET 233 x10EE3/UL Normal 150 - 450 [facility] Comment on above: Performed By: #### 2 76864 #### [facility],[address] [place] [address] Platelet mean volume (Bld) [Entitic vol] 8.5 fL Normal 6.6 - 10.5 [facility] Comment on above: Result Comment: AUTO MATED DIFFERENTIAL Performed By: #### 2 15493 #### [facility],[address] [place] [address] RBC 4.39 x 10EE6/UL Normal 4.10 - 5.30 [facility] Comment on above: Performed By: #### 2 17673 #### [facility],[address] [place] [address] WBC 10.0 x 10EE3/UL Normal 4.5 - 10.8 [facility] Comment on above: Performed By: #### 2 90990 #### [facility],[address] [place] [address] SEDRATEon 09-10-2024 SEDRATE 83 mm/hr High 0 - 30 [facility] Comment on above: Performed By: #### 2 00157 #### [facility],[address] [place] [address] Absolute lymphocyte countOrd ered By: Kamar Grimes on 10-19-2023 Lymphocytes Auto (Unsp spec) [#/Vol] 1.54 10*3/uL 0.83-4.51 [facility] Automated lymphocyte count a s percentage of total leukocytesOrdered By: Kamar Grimes on 10-19-2023 Lymphocytes/100 WBC Auto (Unsp spec) 25.0 % 19-41 [facility] Basophil percentageOrdered B y: Kamar Grimes on 10-19-2023 Basophils/100 WBC (Bld) 0.6 % 0-1 [facility] Bilirubin [Mass/Vol] 0.40 mg/dL 0.20-1.00 [facility] Comment on above: For patients on eltr ombopag therapy, use of Dimension [place] TBIL is not recommended. Chloride [Moles/Vol] 103 mmol/L 98-107 [facility] Eosinophils/100 WBC (Bld) 2.8 % 0-5 [facility] Glucose [Mass/Vol] 105 mg/dL 74-106 [facility] Comment on above: Fasting Glucose resu lt from 100 to 125 mg/dL suggests IMPAIRED HOMEOSTASIS per A.D.A. criteria. Hemoglobin (Bld) [Mass/Vol] 14.4 g/dL 12.0-15.0 [facility] Monocytes/100 WBC (Bld) 8.1 % 0-10 [facility] Neutrophils (Bld) [#/Vol] 3.9 10*3/uL 2.0-7.7 [facility] Neutrophils/100 WBC (Bld) 63.0 % 47-70 [facility] Potassium [Moles/Vol] 4.8 mmol/L 3.5-5.1 [facility] Protein [Mass/Vol] 7.5 g/dL 6.4-8.2 [facility] Sodium [Moles/Vol] 139 mmol/L 136-145 [facility] WBC (Bld) [#/Vol] 6.2 10*3/uL 4.4-11.0 [facility] Determination of erythrocyte mean corpuscular volume (MCV)Ordered By: Kamar Grimes on 10-19-2023 MCV (RBC) [Entitic vol] 94.8 fL 81-99 [facility] Erythrocyte distribution wid th ratioOrdered By: Kamar Grimes on 10-19-2023 Erythrocyte distribution width (RBC) [Ratio] 13.9 % 11.6-14.6 [facility] Erythrocyte distribution wid th standard deviationOrdered By: Kamar Grimes on 10-19-2023 Erythrocyte distribution width (RBC) [Entitic vol] 49.0 fL 35.1-43.9 [facility] Hematocrit Auto (Bld) [Volum e fraction]Ordered By: Kamar Grimes on 10-19-2023 Hematocrit (Bld) [Volume fraction] 46.0 % 37-47 [facility] Immature granulocytes/100 WB C Auto (Bld)Ordered By: Kamar Grimes on 10-19-2023 Immature granulocytes/100 WBC (Bld) 0.500 % 0.0-0.9 [facility] Comment on above: IG% - Immature Granu locytes (promyelocytes, myelocytes and metamyelocytes) > 1% indicates that a LEFT SHIFT is Present. Laboratory - Chemistry and C hemistry - challengeOrdered By: Kamar Grimes on 10-19-2023 Albumin/Globulin [Mass ratio] 1.0 {ratio} 0.9-2.4 [facility] ALP [Catalytic activity/Vol] 121 U/L 45-117 [facility] ALT [Catalytic activity/Vol] 28 U/L 13-56 [facility] CO2 [Moles/Vol] 32.0 mmol/L 21.0-32.0 [facility] Ferritin [Mass/Vol] 72 ng/mL 8-252 [facility] Globulin (S) [Mass/Vol] 3.8 g/dL 2.2-4.2 [facility] Magnesium [Mass/Vol] 2.0 mg/dL 1.6-2.6 [facility] Urea nitrogen/Creatinine [Mass ratio] 28.6 mg/mg 10-20 [facility] Laboratory - Hematology and Cell countsOrdered By: Kamar Grimes on 10-19-2023 MCH (RBC) [Entitic mass] 29.7 pg 27.0-32.0 [facility] MCHC (RBC) [Mass/Vol] 31.3 g/dL 32-36 [facility] Nucleated RBC/100 WBC (Bld) [Ratio] 0 % 0-5 [facility] Platelet mean volume (Bld) [Entitic vol] 11.8 fL 6.2-12.0 [facility] Platelets (Bld) [#/Vol] 192 10*3/uL 150-450 [facility] No Panel InformationOrdered By: Kamar Grimes on 10-19-2023 Estimated GFR (MDRD) Amer 61 mL/min >60 [facility] Comment on above: GFR Calc Estimated GFR (MDRD) Non-Af Amer 50 mL/min >60 [facility] Comment on above: Non- GFR Calc Urine Microalbumin/Creatinine Ratio 180.8 mg/g CRE <30 [facility] RBC Auto (Bld) [#/Vol]Ordere d By: Kamar Grimes on 10-19-2023 RBC (Bld) [#/Vol] 4.85 10*6/uL 4.2-5.4 [facility] Serum or plasma calcium lisa urement (mass/volume)Ordered By: Kamar Grimes on 10-19-2023 Calcium [Mass/Vol] 9.8 mg/dL 8.5-10.1 [facility] Serum or plasma creatinine m easurement (mass/volume)Ordered By: Kamar Grimes on 10-19-2023 Creatinine [Mass/Vol] 1.12 mg/dL 0.55-1.02 [facility] Comment on above: The validity of the calculated GFR & GFRAA in patients over 70 years has not been determined. Clinical correlation is essential. Serum or plasma thyroid stim ulating hormone (TSH) measurement (units/volume)Ordered By: Kamar Grimes on 10-19-2023 TSH Qn 1.61 uIU/mL 0.358-3.74 [facility] Serum or plasma urea nitroge n measurement (mass/volume)Ordered By: Kamar Grimes on 10-19-2023 Urea nitrogen [Mass/Vol] 32 mg/dL 7-18 [facility] Thin prep Papanicolaou smear with manual screeningOrdered By: Kamar Grimes on 10-19-2023 Thin prep Papanicolaou smear with manual screening 3.7 g/dL 3.2-5.0 [facility] Thin prep Papanicolaou smear with manual screening 25 U/L 15-37 [facility] Thin prep Papanicolaou smear with manual screening 4 5-15 [facility] Thin prep Papanicolaou smear with manual screening 79.0 mg/L NO RANGE EST. [facility] Urine creatinine measurement (mass/volume)Ordered By: Kamar Grimes on 10-19-2023 Creatinine (U) [Mass/Vol] 43.70 mg/dL NO RANGE EST. [facility] Absolute lymphocyte countOrd ered By: Dr. Grimes on 10-18-2022 Lymphocytes Auto (Unsp spec) [#/Vol] 1.84 10*3/uL 0.83-4.51 [facility] Basophil percentageOrdered B y: Dr. Grimes on 10-18-2022 Basophils/100 WBC (Bld) 0.9 % 0-1 [facility] Bilirubin [Mass/Vol] 0.50 mg/dL 0.20-1.00 [facility] Comment on above: For patients on eltr ombopag therapy, use of Dimension [place] TBIL is not recommended. Chloride [Moles/Vol] 106 mmol/L 98-107 [facility] Cholesterol [Mass/Vol] 315 mg/dL <200 [facility] Comment on above: <200 mg/dL Desirable 200-240 mg/dL Borderline >240 mg/dL High Risk Eosinophils/100 WBC (Bld) 3.2 % 0-5 [facility] Glucose [Mass/Vol] 94 mg/dL 74-106 [facility] Neutrophils (Bld) [#/Vol] 4.3 10*3/uL 2.0-7.7 [facility] Neutrophils/100 WBC (Bld) 61.3 % 47-70 [facility] Potassium [Moles/Vol] 4.5 mmol/L 3.5-5.1 [facility] Protein [Mass/Vol] 7.1 g/dL 6.4-8.2 [facility] Sodium [Moles/Vol] 137 mmol/L 136-145 [facility] Triglyceride [Mass/Vol] 246 mg/dL <199 [facility] Comment on above: The drugs N-Acetylcy steine and Metamizole may falsely depress this assay.Serum Triglycerides Reference Interval Normal <150 mg/dL Borderline high 150 - 199 mg/dL High 200 - 499 mg/dL Very High > or = 500 mg/dL WBC (Bld) [#/Vol] 6.9 10*3/uL 4.4-11.0 [facility] Blood erythrocytes count (nu mber/volume)Ordered By: Dr. Grimes on 10-18-2022 RBC (Bld) [#/Vol] 4.89 10*6/uL 4.2-5.4 [facility] Blood hemoglobin measurement (mass/volume)Ordered By: Dr. Grimes on 10-18-2022 Hemoglobin (Bld) [Mass/Vol] 14.1 g/dL 12.0-15.0 [facility] Blood lymphocytes/100 leukoc ytesOrdered By: Dr. Grimes on 10-18-2022 Lymphocytes/100 WBC (Bld) 26.6 % 19-41 [facility] Blood monocytes/100 leukocyt esOrdered By: Dr. Grimes on 10-18-2022 Monocytes/100 WBC (Bld) 7.4 % 0-10 [facility] Blood platelet mean volumeOr dered By: Dr. Grimes on 10-18-2022 Platelet mean volume (Bld) [Entitic vol] 10.9 fL 6.2-12.0 [facility] Determination of erythrocyte mean corpuscular volume (MCV)Ordered By: Dr. Grimes on 10-18-2022 MCV (RBC) [Entitic vol] 92.6 fL 81-99 [facility] Hematocrit Auto (Bld) [Volum e fraction]Ordered By: Dr. Grimes on 10-18-2022 Hematocrit (Bld) [Volume fraction] 45.3 % 37-47 [facility] Laboratory - Chemistry and C hemistry - challengeOrdered By: Dr. Grimes on 10-18-2022 ALP [Catalytic activity/Vol] 113 U/L 45-117 [facility] ALT [Catalytic activity/Vol] 34 U/L 13-56 [facility] CO2 [Moles/Vol] 27.0 mmol/L 21.0-32.0 [facility] Globulin (S) [Mass/Vol] 3.6 g/dL 2.2-4.2 [facility] Urea nitrogen/Creatinine [Mass ratio] 24.5 mg/mg 10-20 [facility] Laboratory - Hematology and Cell countsOrdered By: Dr. Grimes on 10-18-2022 Erythrocyte distribution width (RBC) [Entitic vol] 45.0 fL 35.1-43.9 [facility] Erythrocyte distribution width (RBC) [Ratio] 13.4 % 11.6-14.6 [facility] Immature granulocytes/100 WBC (Bld) 0.600 % 0.0-0.9 [facility] Comment on above: IG% - Immature Granu locytes (promyelocytes, myelocytes and metamyelocytes) > 1% indicates that a LEFT SHIFT is Present. MCH (RBC) [Entitic mass] 28.8 pg 27.0-32.0 [facility] Nucleated RBC/100 WBC (Bld) [Ratio] 0 % 0-5 [facility] MCHC Auto (RBC) [Mass/Vol]Or dered By: Dr. Grimes on 10-18-2022 MCHC (RBC) [Mass/Vol] 31.1 g/dL 32-36 [facility] No Panel InformationOrdered By: Dr. Grimes on 10-18-2022 Estimated GFR (MDRD) Amer 79 mL/min >60 [facility] Comment on above: GFR Calc Estimated GFR (MDRD) Non-Af Amer 65 mL/min >60 [facility] Comment on above: Non- GFR Calc Urine Microalbumin/Creatinine Ratio 266.0 mg/g CRE <30 [facility] Vitamin D 25-Hydroxy 27.3 ng/mL [facility] Comment on above: Vitamin D 25(OH) Sta tus Range Deficiency <20 ng/mL (50nmol/L) Insufficiency 20 - 30 ng/mL (50 - 75 nmol/L) Sufficiency 30 - 100 ng/mL (75 - 250 nmol/L) Toxicity >100 ng/mL (>250 nmol/L) Platelets bldOrdered By: Dr. Grimes on 10-18-2022 Platelets (Bld) [#/Vol] 196 10*3/uL 150-450 [facility] Serum or plasma albumin lisa urement (mass/volume)Ordered By: Dr. Grimes on 10-18-2022 Albumin [Mass/Vol] 3.5 g/dL 3.2-5.0 [facility] Serum or plasma albumin/glob ulin mass ratioOrdered By: Dr. Grimes on 10-18-2022 Albumin/Globulin [Mass ratio] 1.0 {ratio} 0.9-2.4 [facility] Serum or plasma calcium lisa urement (mass/volume)Ordered By: Dr. Grimes on 10-18-2022 Calcium [Mass/Vol] 9.2 mg/dL 8.5-10.1 [facility] Serum or plasma cholesterol in HDL measurement (mass/volume)Ordered By: Dr. Grimes on 10-18-2022 Cholesterol in HDL [Mass/Vol] 56 mg/dL >40 [facility] Comment on above: The drugs N-Acetylcy steine and Metamizole may falsely depress this assay. Reference Range HDL <40 mg/dL Low HDL Cholesterol HDL >or= 60 mg/dL High HDL Cholesterol Serum or plasma cholesterol in VLDL measurement (mass/volume)Ordered By: Dr. Grimes on 10-18-2022 Cholesterol in VLDL [Mass/Vol] 49 mg/dL 5-40 [facility] Serum or plasma creatinine m easurement (mass/volume)Ordered By: Dr. Grimes on 10-18-2022 Creatinine [Mass/Vol] 0.90 mg/dL 0.55-1.02 [facility] Comment on above: The validity of the calculated GFR & GFRAA in patients over 70 years has not been determined. Clinical correlation is essential. Serum or plasma ferritin bubba surement (mass/volume)Ordered By: Dr. Grimes on 10-18-2022 Ferritin [Mass/Vol] 65 ng/mL 8-252 [facility] Serum or plasma low density lipoprotein (LDL) cholesterol measurement (mass/volume)Ordered By: Dr. Grimes on 10-18-2022 Cholesterol in LDL [Mass/Vol] 210 mg/dL 0-130 [facility] Serum or plasma urea nitroge n measurement (mass/volume)Ordered By: Dr. Grimes on 10-18-2022 Urea nitrogen [Mass/Vol] 22 mg/dL 7-18 [facility] Thin prep Papanicolaou smear with manual screeningOrdered By: Dr. Grimes on 10-18-2022 Thin prep Papanicolaou smear with manual screening 25 U/L 15-37 [facility] Thin prep Papanicolaou smear with manual screening 4 5-15 [facility] Thin prep Papanicolaou smear with manual screening 104.0 mg/L NO RANGE EST. [facility] Urine creatinine measurement (mass/volume)Ordered By: Dr. Grimes on 10-18-2022 Creatinine (U) [Mass/Vol] 39.10 mg/dL NO RANGE EST. [facility] Whole blood hemoglobin A1c/t otal hemoglobin ratio (mass fraction)Ordered By: Dr. Grimes on 10-18-2022 HbA1c (Bld) [Mass fraction] 5.6 % 3.8-5.6 [facility] Comment on above: Normal < 5.7 % Predi abetic 5.7 - 6.4 % Diabetic >or= 6.5 % Please note range changes. No Panel Informationon 04-20 Stool Pancreatic Elastase > 500 >200 [facility] Work Phone: Comment on above: Result Units: ug Estephania st./g Severe Pancreatic Insufficiency: <100 Moderate Pancreatic Insufficiency: 100 - 200 Normal: >200Performed at: [facility] - [facility] [address] [id number] Director: Javier Christie MD, Phone: [phone] Basophil percentageon 2021 Bilirubin [Mass/Vol] 0.70 mg/dL 0.20-1.00 [facility] Work Phone: Comment on above: For patients on eltr ombopag therapy, use of Dimension [place] TBIL is not recommended. Chloride [Moles/Vol] 100 mmol/L 98-107 [facility] Work Phone: Cholesterol [Mass/Vol] 286 mg/dL <200 [facility] Work Phone: Comment on above: <200 mg/dL Desirable 200-240 mg/dL Borderline >240 mg/dL High Risk Glucose [Mass/Vol] 101 mg/dL 74-106 [facility] Work Phone: Comment on above: Fasting Glucose resu lt from 100 to 125 mg/dL suggests IMPAIRED HOMEOSTASIS per A.D.A. criteria. Potassium [Moles/Vol] 3.5 mmol/L 3.5-5.1 [facility] Work Phone: Protein [Mass/Vol] 7.5 g/dL 6.4-8.2 [facility] Work Phone: Sodium [Moles/Vol] 137 mmol/L 136-145 [facility] Work Phone: Triglyceride [Mass/Vol] 202 mg/dL <199 [facility] Work Phone: Comment on above: The drugs N-Acetylcy steine and Metamizole may falsely depress this assay.Serum Triglycerides Reference Interval Normal <150 mg/dL Borderline high 150 - 199 mg/dL High 200 - 499 mg/dL Very High > or = 500 mg/dL Laboratory - Chemistry and C hemistry - challengeon 04-19-2022 Albumin [Mass/Vol] 4.0 g/dL 2.9-4.4 [facility] Work Phone: ALP [Catalytic activity/Vol] 107 U/L 45-117 [facility] Work Phone: ALT [Catalytic activity/Vol] 35 U/L 13-56 [facility] Work Phone: CO2 [Moles/Vol] 31.0 mmol/L 21.0-32.0 [facility] Work Phone: Cobalamin (Vitamin B12) [Mass/Vol] 405 pg/mL 211-911 [facility] Work Phone: Globulin (S) [Mass/Vol] 3.6 g/dL 2.2-4.2 [facility] Work Phone: Urea nitrogen/Creatinine [Mass ratio] 16.6 mg/mg 10-20 [facility] Work Phone: No Panel Informationon 04-19 Addendum Document Comment . [facility] Work Phone: Comment on above: The SPE pattern appe ars unremarkable. Evidence ofmonoclonal protein is not apparent.Performed at: [address] [id number] Director: Jorden Figueroa PhD, Phone: [phone] Hlzry-7-Jghyljunb 0.3 g/dL 0.0-0.4 [facility] Work Phone: Awwcd-8-Owykytfew 0.8 g/dL 0.4-1.0 [facility] Work Phone: Anti-Nuclear Antibody Screen Negative Negative [facility] Work Phone: Comment on above: Performed at: - [facility] [address] [id number] Director: Jorden Figueroa PhD, Phone: [phone] Estimated GFR (MDRD) Amer 73 mL/min >60 [facility] Work Phone: Comment on above: GFR Calc Estimated GFR (MDRD) Non-Af Amer 60 mL/min >60 [facility] Work Phone: Comment on above: Non- GFR Calc Gamma Globulins 1.0 g/dL 0.4-1.8 [facility] Work Phone: Urine Microalbumin/Creatinine Ratio 94.8 mg/g CRE <30 [facility] Work Phone: Protein Fractions Elph [Inte rp]on 04-19-2022 Protein Fractions [Interp] Comment . [facility] Work Phone: Comment on above: Protein electrophore sis scan will follow via computer,mail, or day care director delivery. Serum albumin to globulin ra bernard by protein electrophoresison 04-19-2022 Albumin/Globulin Elph [Mass ratio] 1.2 0.7-1.7 [facility] Work Phone: Serum globulin measurement ( mass/volume)on 04-19-2022 Globulin (S) [Mass/Vol] 3.3 g/dL 2.2-3.9 [facility] Work Phone: Serum or plasma albumin lisa urement (mass/volume)on 04-19-2022 Albumin [Mass/Vol] 3.9 g/dL 3.2-5.0 [facility] Work Phone: Serum or plasma albumin/glob ulin mass ratioon 04-19-2022 Albumin/Globulin [Mass ratio] 1.1 {ratio} 0.9-2.4 [facility] Work Phone: Serum or plasma beta globuli n measurement by electrophoresis (mass/volume)on 04-19-2022 Beta globulin Elph [Mass/Vol] 1.2 g/dL 0.7-1.3 [facility] Work Phone: Serum or plasma calcium lisa urement (mass/volume)on 04-19-2022 Calcium [Mass/Vol] 9.7 mg/dL 8.5-10.1 [facility] Work Phone: Serum or plasma cholesterol in HDL measurement (mass/volume)on 04-19-2022 Cholesterol in HDL [Mass/Vol] 59 mg/dL >40 [facility] Work Phone: Comment on above: The drugs N-Acetylcy steine and Metamizole may falsely depress this assay. Reference Range HDL <40 mg/dL Low HDL Cholesterol HDL >or= 60 mg/dL High HDL Cholesterol Serum or plasma cholesterol in VLDL measurement (mass/volume)on 04-19-2022 Cholesterol in VLDL [Mass/Vol] 40 mg/dL 5-40 [facility] Work Phone: Serum or plasma creatinine m easurement (mass/volume)on 04-19-2022 Creatinine [Mass/Vol] 0.96 mg/dL 0.55-1.02 [facility] Work Phone: Comment on above: The validity of the calculated GFR & GFRAA in patients over 70 years has not been determined. Clinical correlation is essential. Serum or plasma folate measu rement (mass/volume)on 04-19-2022 Folate [Mass/Vol] 33.60 ng/mL 3.1-55.4 [facility] Work Phone: Serum or plasma low density lipoprotein (LDL) cholesterol measurement (mass/volume)on 04-19-2022 Cholesterol in LDL [Mass/Vol] 187 mg/dL 0-130 [facility] Work Phone: Serum or plasma urea nitroge n measurement (mass/volume)on 04-19-2022 Urea nitrogen [Mass/Vol] 16 mg/dL 7-18 [facility] Work Phone: Thin prep Papanicolaou smear with manual screeningon 04-19-2022 Thin prep Papanicolaou smear with manual screening 26 U/L 15-37 [facility] Work Phone: Thin prep Papanicolaou smear with manual screening 6 5-15 [facility] Work Phone: Thin prep Papanicolaou smear with manual screening 58.4 mg/L NO RANGE EST. [facility] Work Phone: Thin prep Papanicolaou smear with manual screening See comment [facility] Work Phone: Comment on above: Result: Not Observed Total protein bloodon 2021 Protein [Mass/Vol] 7.3 g/dL 6.0-8.5 [facility] Work Phone: Urine creatinine measurement (mass/volume)on 04-19-2022 Creatinine (U) [Mass/Vol] 61.60 mg/dL NO RANGE EST. [facility] Work Phone: Otheron 12-22-2006 CONVERTED ELECTRONIC SIGNATURE FERNANDO MARLEY M.D., PATHOLOGIST (Electronic signature on file) Final Signed Out: 12/22/2006 17:10 [facility] CONVERTED FINAL DIAGNOSIS RIGHT HUMERAL HEAD, EXCISION - DEGENERATIVE ARTHRITIS. [facility] CONVERTED ORDERING PROVIDER Ordering Provider: SIXTO NELSON [facility] Vital Signs Date Time Vital Sign Value Performing Clinician Facility 04-23-2025 16:45-0400 Body temperature 98.3 [degF] Dr. Kamar Grimes MD Work Phone: [facility] 04-23-2025 16:45-0400 Diastolic blood pressure 80 mm[Hg] Dr. Kamar Grimes MD Work Phone: [facility] 04-23-2025 16:45-0400 Heart rate 96 /min Dr. Kamar Grimes MD Work Phone: [facility] 04-23-2025 16:45-0400 Inhaled oxygen flow rate 3 L/min Dr. Kamar Grimes MD Work Phone: [facility] 04-23-2025 16:45-0400 Respiratory rate 18 /min Dr. Kamar Grimes MD Work Phone: 3(783)713-345826 [place] [address] 04-23-2025 16:45-0400 SaO2% (BldA) [Mass fraction] 98 % Dr. Kamar Grimes MD Work Phone: 5(753)255-674026 [place] [address] 04-23-2025 16:45-0400 Systolic blood pressure 132 mm[Hg] Dr. Kamar Grimes MD Work Phone: 1(724)701-981926 [place] [address] 04-23-2025 03:23-0400 Body mass index (BMI) [Ratio] 36.9 kg/m2 Dr. Kamar Grimes MD Work Phone: 7(945)552-946026 [place] [address] 04-23-2025 03:23-0400 Body weight 107.[address] Kamar Grimes MD Work Phone: 7(321)688-797526 [place] [address] 04-22-2025 15:38-0400 Body height 170.[address] Kamar Grimes MD Work Phone: 0(091)135-355626 [place] [address] 04-16-2025 16:49-0400 Inhaled oxygen flow rate 2 L/min Dr. Kamar Grimes MD Work Phone: 8(757)390-175326 [place] [address] 04-16-2025 16:49-0400 SaO2% (BldA) [Mass fraction] 94 % Dr. Kamar Grimes MD Work Phone: 6(287)642-097726 [place] [address] 04-16-2025 16:00-0400 Heart rate 86 /min Dr. Kamar Grimes MD Work Phone: 1(140)192-179026 [place] [address] 04-16-2025 16:00-0400 Respiratory rate 20 /min Dr. Kamar Grimes MD Work Phone: 5(129)565-072526 [place] [address] 04-16-2025 15:27-0400 Body mass index (BMI) [Ratio] 36 kg/m2 Dr. Kamar Grimes MD Work Phone: 9(363)774-976726 [place] [address] 04-16-2025 15:27-0400 Body weight 104.[address] Kamar Grimes MD Work Phone: 1(354)060-524626 [place] [address] 04-16-2025 15:27-0400 Diastolic blood pressure 71 mm[Hg] Dr. Kamar Grimes MD Work Phone: 7(576)471-589662 [place] [address] 04-16-2025 15:27-0400 Systolic blood pressure 105 mm[Hg] Dr. Kamar Grimes MD Work Phone: 6(278)007-683626 [place] [address] 03-26-2025 14:00-0400 Diastolic blood pressure 105 mm[Hg] Dr. Kamar Grimes MD Work Phone: 7(057)730-064826 [place] [address] 03-26-2025 14:00-0400 Heart rate 96 /min Dr. Kamar Grimes MD Work Phone: 7(222)159-635026 [place] [address] 03-26-2025 14:00-0400 Inhaled oxygen flow rate 2 L/min Dr. Kamar Grimes MD Work Phone: 3(271)327-811526 [place] [address] 03-26-2025 14:00-0400 Respiratory rate 20 /min Dr. Kamar Grimes MD Work Phone: 1(563)771-349326 [place] [address] 03-26-2025 14:00-0400 SaO2% (BldA) [Mass fraction] 93 % Dr. Kamar Grimes MD Work Phone: 1(948)895-203126 [place] [address] 03-26-2025 14:00-0400 Systolic blood pressure 140 mm[Hg] Dr. Kamar Grimes MD Work Phone: 4(467)435-295126 [place] [address] 03-26-2025 09:28-0400 Body temperature 97.9 [degF] Dr. Kamar Grimes MD Work Phone: 9(603)376-333326 [place] [address] 03-26-2025 03:09-0400 Body mass index (BMI) [Ratio] 40.4 kg/m2 Dr. Kamar Grimes MD Work Phone: 3(211)815-470626 [place] [address] 03-26-2025 03:09-0400 Body weight [address] Kamar Grimes MD Work Phone: 8(693)700-635226 [place] [address] 03-24-2025 13:04-0400 Body height 170.[address] Kamar Grimes MD Work Phone: 9(414)793-752162 [place] [address] 03-20-2025 08:00-0400 Inhaled oxygen concentration 25 % Dr. Kamar Grimes MD Work Phone: 8(830)462-392326 [place] [address] 03-19-2025 06:45-0400 Diastolic blood pressure 66 mm[Hg] Dr. Kamar Grmies MD Work Phone: 3(867)223-561626 [place] [address] 03-19-2025 06:45-0400 Systolic blood pressure 90 mm[Hg] Dr. Kamar Grimes MD Work Phone: 1(328)392-173826 [place] [address] 03-19-2025 06:00-0400 Body temperature 100.1 [degF] Dr. Kamar Grimes MD Work Phone: 5(722)695-753226 [place] [address] 03-19-2025 06:00-0400 Heart rate 97 /min Dr. Kamar Grimes MD Work Phone: 5(426)449-214126 [place] [address] 03-19-2025 06:00-0400 Inhaled oxygen concentration 40 % Dr. Kamar Grimes MD Work Phone: 4(238)800-978226 [place] [address] 03-19-2025 06:00-0400 Respiratory rate 14 /min Dr. Kamar Grimes MD Work Phone: 4(261)832-848426 [place] [address] 03-19-2025 06:00-0400 SaO2% (BldA) [Mass fraction] 97 % Dr. Kamar Grimes MD Work Phone: 8(134)394-378326 [place] [address] 03-19-2025 05:06-0400 Body mass index (BMI) [Ratio] 38.6 kg/m2 Dr. Kamar Grimes MD Work Phone: 0(348)265-638326 [place] [address] 03-19-2025 05:06-0400 Body weight 111.[address] Kamar Grimes MD Work Phone: 6(945)514-034526 [place] [address] 03-18-2025 20:58-0400 Body height [address] Kamar Grimes MD Work Phone: 4(715)793-588726 [place] [address] 03-18-2025 20:09-0400 Body temperature 90.4 [degF] Dr. Kamar Grimes MD Work Phone: 4(513)597-081826 [place] [address] 03-18-2025 20:09-0400 Diastolic blood pressure 13 mm[Hg] Dr. Kamar Grimes MD Work Phone: [facility] 03-18-2025 20:09-0400 Heart rate 63 /min Dr. Kamar Grimes MD Work Phone: [facility] 03-18-2025 20:09-0400 Respiratory rate 14 /min Dr. Kamar Grimes MD Work Phone: 6(438)451-099526 [place] [address] 03-18-2025 20:09-0400 SaO2% (BldA) [Mass fraction] 95 % Dr. Kamar Grimes MD Work Phone: 8(913)483-864062 [place] [address] 03-18-2025 20:09-0400 Systolic blood pressure 32 mm[Hg] Dr. Kamar Grimes MD Work Phone: 7(892)295-439726 [place] [address] 03-18-2025 20:00-0400 Inhaled oxygen concentration 40 % Dr. Kamar Grimes MD Work Phone: 6(319)879-073726 [place] [address] 03-18-2025 17:48-0400 Inhaled oxygen flow rate 4 L/min Dr. Kamar Grimes MD Work Phone: 3(747)882-450778 [address] 03-18-2025 14:56-0400 Body height 170.[address] Kamar Grimes MD Work Phone: 3(968)256-295726 [place] [address] 03-18-2025 14:56-0400 Body mass index (BMI) [Ratio] 38.7 kg/m2 Dr. Kamar Grimes MD Work Phone: 6(378)360-017226 [place] [address] 03-18-2025 14:56-0400 Body weight 112.[address] Kamar Grimes MD Work Phone: [facility] 10-08-2024 07:58-0400 Heart rate 80 /min Dr. Kamar Grimes MD Work Phone: [facility] 10-08-2024 06:30-0400 SaO2% (BldA) [Mass fraction] 95 % Dr. Kamar Grimes MD Work Phone: 5(449)181-506362 [place] [address] 10-07-2024 21:36-0400 Diastolic blood pressure 78 mm[Hg] Dr. Kamar Grimes MD Work Phone: 8(015)018-089262 [place] [address] 10-07-2024 21:36-0400 Systolic blood pressure 147 mm[Hg] Dr. Kamar Grimes MD Work Phone: 7(069)381-719726 [place] [address] 10-07-2024 20:02-0400 Body temperature 98.2 [degF] Dr. Kamar Grimes MD Work Phone: 7(347)331-885226 [place] [address] 10-07-2024 20:02-0400 Respiratory rate 16 /min Dr. Kamar Grimes MD Work Phone: 8(515)523-928826 [place] [address] 10-02-2024 14:29-0400 Body height 170.[address] Kamar Grimes MD Work Phone: 2(404)314-649026 [place] [address] 10-02-2024 14:29-0400 Body weight 106.[address] Kamar Grimes MD Work Phone: 6(090)325-615726 [place] [address] 10-01-2024 13:00-0400 Body mass index (BMI) [Ratio] 36.8 kg/m2 Dr. Kamar Grimes MD Work Phone: 9(068)677-605626 [place] [address] 09-18-2024 08:25-0400 Heart rate 87 /min Dr. Kamar Grimes MD Work Phone: 7(233)226-219726 [place] [address] 09-18-2024 07:25-0400 Respiratory rate 14 /min Dr. Kamar Grimes MD Work Phone: 3(567)630-941126 [place] [address] 09-18-2024 07:25-0400 SaO2% (BldA) [Mass fraction] 90 % Dr. Kamar Grimes MD Work Phone: 3(120)707-019326 [place] [address] 09-18-2024 07:20-0400 Body temperature 97.7 [degF] Dr. Kamar Grimes MD Work Phone: 3(910)363-757326 [place] [address] 09-18-2024 07:20-0400 Diastolic blood pressure 87 mm[Hg] Dr. Kamar Grimes MD Work Phone: 2(686)991-599726 [place] [address] 09-18-2024 07:20-0400 Systolic blood pressure 160 mm[Hg] Dr. Kamar Grimes MD Work Phone: 5(846)070-858626 [place] [address] 09-16-2024 14:49-0400 Inhaled oxygen flow rate 2 L/min Dr. Kamar Grimes MD Work Phone: [facility] 09-13-2024 18:26-0400 Body height 170.[address] Kamar Grimes MD Work Phone: [facility] 09-13-2024 18:26-0400 Body mass index (BMI) [Ratio] 36.3 kg/m2 Dr. Kamar Grimes MD Work Phone: [facility] 09-13-2024 18:26-0400 Body weight 105.[address] Kamar Grimes MD Work Phone: [facility] 05-05-2022 15:52-0400 Body height 167.64 cm [facility] Work Phone: Encounters Encounter Date Encounter Type Care Provider Facility Start: 05-08-2025 ambulatory Katrina Gujohna [facility] Fac[facility] ty:[facility] Start: 04-29-2025 ambulatory Katrina Gudla O[facility] Facili ty:[facility] Start: 04-24-2025 ambulatory Katrina Gudla OLS Facili ty:[facility] Start: 04-24-2025 Dr. Katrina Berkowitz MD -[facility] Start: 04-23-2025 Dr. Garfield Pierson MD -[facility] Work Phone: Start: 04-22-2025 Dr. Garfield Pierson MD -[facility] Work Phone: Start: 04-21-2025 ambulatory [facility] ty:[facility] Start: 04-21-2025 Dr. Garfield Pierson MD -[facility] Work Phone: Start: 04-20-2025 Dr. Garfield Pierson MD -[facility] Work Phone: Start: 04-19-2025 Dr. Garfield Pierson MD -[facility] Work Phone: Start: 04-18-2025 ambulatory [facility] Fac ility:[facility] Start: 04-18-2025 End: 04-23-2025 Evaluation and management of inpatient Dr. Kamar Grimes MD Work Phone: -Progressive Care Unit Start: 04-18-2025 End: 04-23-2025 Dr. Garfield Pierson MD -[facility] U nit Work Phone: Start: 04-16-2025 End: 04-16-2025 Dr. Kamar Grimes MD -Laboratory Work Phone: Start: 04-16-2025 End: 04-16-2025 Dr. Mike Reddy MD -[facility] Work Phone: Start: 04-16-2025 End: 04-16-[address] Kamar Grimes MD Work Phone: -[facility] Start: 04-16-2025 End: 04-16-2025 ambulatory Kamar Grimes Facility:[facility] Start: 04-09-2025 End: 04-09-2025 Dr. Kamar Grimes MD -Laboratory [facility] Start: 04-09-2025 End: 04-09-2025 ambulatory Kamar Grimes Facility:[facility] Start: 03-26-2025 Dr. Karla Bustamante DO -[facility] Work Phone: Start: 03-25-2025 Dr. Karla Bustamante DO -[facility] Work Phone: Start: 03-24-2025 Dr. Karla Bustamante DO -[facility] Work Phone: Start: 03-23-2025 Dr. Otilia Hernandez MD - [facility] Work Phone: Start: 03-22-2025 Dr. Otilia Hernandez MD - [facility] Work Phone: Start: 03-21-2025 Dr. Otilia Hernandez MD - [facility] Work Phone: Start: 03-21-2025 Dr. Antwan Gardner DO -[facility] Start: 03-20-2025 Dr. Otilia Hernandez MD - [facility] Work Phone: Start: 03-20-2025 Dr. Antwan Gardner DO -[facility] Start: 03-19-2025 Dr. Otilia Hernandez MD - [facility] Work Phone: Start: 03-19-2025 ambulatory Saul Kearney Facility:[facility] Start: 03-19-2025 Dr. Saul Kearney MD -[facility] Start: 03-18-2025 Dr. Saul Kearney MD -[facility] Work Phone: Start: 03-18-2025 ambulatory Karla Bustamante [facility] Start: 03-18-2025 End: 03-26-2025 Evaluation and management of inpatient Dr. Emili Lee MD -Intensive Care Unit Work Phone: Start: 03-18-2025 End: 03-26-2025 Dr. Karla Bustamante DO -[facility] Work Phone: Start: 03-17-2025 End: 03-17-[address] Kamar Grimes MD Work Phone: -[facility] Start: 03-17-[address] Kamar Grimes MD -[facility] Work Phone: Start: 03-17-2025 End: 03-17-2025 Dr. Kamar Grimes MD -Cat [facility] Work Phone: Start: 03-17-2025 End: 03-17-2025 ambulatory Kamar Grimes Facility:[facility] Start: 03-10-2025 End: 03-10-[address] Kamar Grimes MD Work Phone: -Laboratory [place] Start: 03-10-2025 End: 03-10-[address] Kamar Grimes MD -Laboratory [place] Work Phone: Start: 03-10-2025 End: 03-10-2025 Dr. Kamar Grimes MD -Laboratory [place] Work Phone: Start: 03-10-2025 End: 03-10-2025 ambulatory [facility] Facility:[facility] Start: 03-04-2025 Non-patient / Non-visit Dr. Carlene greco MD -[facility] Start: 03-04-2025 End: 03-04-[address] Kamar Grimes MD Work Phone: -Cardiovascular Services Start: 03-04-2025 End: 03-04-[address] Kamar Grimes MD -Cardiovascular Services Work Phone: Start: 03-04-2025 End: 03-04-2025 Dr. Carlene Salazar MD -[facility] Start: 03-04-2025 End: 03-04-2025 ambulatory [facility] Facility:[facility] Start: 02-10-2025 End: 02-10-[address] Kamar Grimes MD Work Phone: -Laboratory [employer] Start: 02-10-2025 End: 02-10-[address] Kamar Grimes MD -Laboratory [place] Work Phone: Start: 02-10-2025 End: 02-10-2025 Dr. Kamar Grimes MD -Laboratory [place] Work Phone: Start: 02-10-2025 End: 02-10-2025 ambulatory [facility] Facility:[facility] Start: 10-01-2024 ambulatory [facility] Start: 09-18-2024 End: 10-08-2024 Evaluation and management of inpatient Dr. Rodrigo Sanches MD -Transitional Care Unit Start: 09-18-2024 Encounter for other preprocedural examination [facility] Start: 09-18-2024 Non-patient / Non-visit Dr. Mikel Jiang [facility] Work Phone: Start: 09-17-2024 Non-patient / Non-visit Dr. Mikel Jiang [facility] Work Phone: Start: 09-16-2024 Non-patient / Non-visit Dr. Mikel Jiang [facility] Work Phone: Start: 09-15-2024 Non-patient / Non-visit Dr. Emili mora MD -[facility] Work Phone: Start: 09-14-2024 ambulatory Kamar Fulton [facility] Start: 09-14-2024 End: 09-18-2024 Evaluation and management of inpatient Dr. Fahad Cavanaugh MD -[facility] 3 Work Phone: Start: 09-14-2024 Non-patient / Non-visit Dr. Emili mora MD -[facility] Work Phone: Start: 09-13-2024 Non-patient / Non-visit Dr. Cynthia Garcia [facility] Work Phone: Start: 09-13-[facility] Start: 09-12-2024 End: 09-12-2024 ambulatory [facility] Start: 09-12-2024 End: 09-12-2024 Non-patient / Non-visit Dr. Tejal Holly MD -[facility] Work Phone: Start: 09-10-2024 End: 09-10-2024 ambulatory [facility] Start: 10-19-2023 End: 10-19-2023 ambulatory [facility] Work Phone: Start: 10-19-2023 End: 10-19-2023 Patient encounter procedure [facility] Start: 10-18-2022 End: 10-18-2022 ambulatory [facility] Work Phone: Start: 10-18-2022 End: 10-18-2022 Patient encounter procedure [facility] Start: 05-05-2022 End: 05-05-2022 ambulatory [facility] Work Phone: Start: 05-05-2022 End: 05-05-2022 Patient encounter procedure [facility]-Outpatient Bone Densitometry Start: 04-20-2022 End: 04-20-2022 ambulatory [facility] Work Phone: Start: 04-20-2022 End: 04-20-2022 Patient encounter procedure [facility]-Laboratory, Specimen Start: 04-19-2022 End: 04-19-2022 ambulatory [facility] Work Phone: Start: 04-19-2022 End: 04-19-2022 Patient encounter procedure [facility]-Laboratory, [place] [facility] Start: 11-25-2021 End: 11-25-2021 Discharged Recurring [facility]-Physical Therapy Start: 12-18-2006 End: 12-18-2006 Patient encounter procedure Sixto Nelson Work Phone: [facility] Start: 12-18-2006 Results Only Sixto Brock julian Work Phone: [facility] Procedures Date Procedure Procedure Detail Performing [...] 04-29-2025 Vitamin D, 25-hydrox y measurement Dr. Kamra Grimes MD Work Phone: Start: 04-24-2025 Mean [...] dip stick/tabl et reagent auto microscopy Dr. Kamra Grimes MD Work Phone: Start: 04-19-2025 Oxygen [...] Activity Detail Author Start: 01-26-2026 Colonoscopy COLONOSCOPY [facility] Start: 05-08-2025 -[facility] Start: 04-29-2025 -[facility] Start: 04-24-2025 -[facility] Start: 04-23-2025 -[facility] Work Phone: Start: 04-23-2025 Patient discharge [facility] Start: 04-22-2025 -[facility] Work Phone: Start: 04-22-2025 Referral to service [facility] Start: 04-21-2025 -[facility] Work Phone: Start: 04-20-2025 Legionella pneumophila antigen assay [facility] Start: 04-20-2025 Streptococcus pneumoniae antigen assay [facility] Start: 04-20-2025 Urine culture [facility] Start: 04-20-2025 -[facility] Work Phone: Start: 04-19-2025 Following clinical pathway protocol [facility] Start: 04-19-2025 Referral to service [facility] Start: 04-19-2025 Catheterization of vein [facility] Start: 04-19-2025 Insertion of catheter into peripheral vein [facility] Start: 04-19-2025 Measuring intake and output [facility] Start: 04-19-2025 Providing care according to standard [facility] Start: 04-19-2025 Vital signs measurements [facility] Start: 04-19-2025 [facility] Start: 04-19-2025 Plain chest X-ray [facility] Start: 04-19-2025 Consultation [facility] Start: 04-19-2025 Bacterial nucleic acid assay [facility] Start: 04-19-2025 Blood culture [facility] Start: 04-19-2025 -[facility] Work Phone: Start: 04-19-2025 Following clinical pathway protocol [facility] Start: 04-18-2025 Referral to mathematics improvement teacher [facility] Start: 04-18-2025 Ambulation without limitation [facility] Start: 04-18-2025 Assessment of risk of venous thromboembolism [facility] Start: 04-18-2025 Insertion of catheter into peripheral vein [facility] Start: 04-18-2025 Measuring intake and output [facility] Start: 04-18-2025 Oxygen therapy [facility] Start: 04-18-2025 Providing care according to standard [facility] Start: 04-18-2025 Referral for physical therapy [facility] Start: 04-18-2025 Referral to occupational therapist [facility] Start: 04-18-2025 Referral to service [facility] Start: 04-18-2025 [facility] Start: 04-18-2025 Admission procedure [facility] Start: 04-18-2025 End: 04-23-2025 -Progressive Care Unit Work Phone: Start: 04-18-2025 Patient referral to dietitian [facility] Start: 04-16-2025 End: 04-16-2025 Evaluation of diagnostic study results [facility] Start: 03-26-2025 [facility] Start: 03-26-2025 Patient discharge [facility] Start: 03-26-2025 Referral to service [facility] Start: 03-25-2025 -[facility] Work Phone: Start: 03-22-2025 Care planning and problem solving actions [facility] Start: 03-22-2025 [facility] Start: 03-20-2025 End: 03-21-2025 [facility] Start: 03-20-2025 Oxygen therapy [facility] Start: 03-20-2025 [facility] Start: 03-19-2025 Airway suction technique [facility] Start: 03-19-2025 Respiratory therapy [facility] Start: 03-19-2025 Consultation [facility] Start: 03-19-2025 Referral for physical therapy [facility] Start: 03-19-2025 Referral to occupational therapist [facility] Start: 03-19-2025 Weaning from mechanically assisted ventilation [facility] Start: 03-19-2025 Consultation for treatment [facility] Start: 03-18-2025 Creatine kinase [Enzymatic activity/volume] in Serum or Plasma [facility] Start: 03-18-2025 Triglycerides measurement [facility] Start: 03-18-2025 Airway suction technique [facility] Start: 03-18-2025 Following clinical pathway protocol [facility] Start: 03-18-2025 Maintenance of invasive device [facility] Start: 03-18-2025 Assessment of risk of venous thromboembolism [facility] Start: 03-18-2025 Catheterization of vein [facility] Start: 03-18-2025 Consultation [facility] Start: 03-18-2025 Continuous pulse oximetry [facility] Start: 03-18-2025 Creatinine [Mass/volume] in Urine collected for unspecified duration [facility] Start: 03-18-2025 Determination of Giang Agitation Sedation Scale (RASS) score with assessment for d [facility] Start: 03-18-2025 Electrolytes measurement, urine [facility] Start: 03-18-2025 Elevation of head of bed [facility] Start: 03-18-2025 Inhalation therapy procedure [facility] Start: 03-18-2025 Insertion of catheter into peripheral vein [facility] Start: 03-18-2025 Measuring intake and output [facility] Start: 03-18-2025 Mouth care [facility] Start: 03-18-2025 Notification of physician [facility] Start: 03-18-2025 Osmolality of Urine [facility] Start: 03-18-2025 Providing care according to standard [facility] Start: 03-18-2025 Referral to service [facility] Start: 03-18-2025 Respiratory pathogens DNA and RNA panel - Respiratory specimen by RANJIT with probe detection [facility] Start: 03-18-2025 Taking nasal swab [facility] Start: 03-18-2025 Tracheostomy care [facility] Start: 03-18-2025 Trial for daily interruption of sedation during mechanically assisted ventilation [facility] Start: 03-18-2025 Urea nitrogen measurement, urine [facility] Start: 03-18-2025 Vital signs measurements [facility] Start: 03-18-2025 [facility] Start: 03-18-2025 Airway suction technique [facility] Start: 03-18-2025 Respiratory therapy [facility] Start: 03-18-2025 Verification routine [facility] Start: 03-18-2025 Admission procedure [facility] Start: 03-18-2025 End: 03-26-2025 -Progressive Care Unit Work Phone: Start: 03-18-2025 End: 03-19-2025 [facility] Start: 03-18-2025 Bacteria identified in Blood by Culture Blood Culture [facility] Start: 03-18-2025 Bacteria identified in Urine by Culture Urine Culture [facility] Start: 03-18-2025 Microscopic observation [Identifier] in Unspecified specimen by Gram stain [facility] Start: 03-18-2025 Respiratory Culture Respiratory Culture [facility] Start: 03-18-2025 Electrolytes measurement, urine [facility] Start: 03-18-2025 Urea nitrogen measurement, urine [facility] Start: 03-18-2025 Consultation [facility] Start: 03-18-2025 Patient referral to [facility] Start: 03-18-2025 [facility] Start: 10-08-2024 Patient discharge [facility] Start: 10-07-2024 [facility] Start: 09-30-2024 Referral to service [facility] Start: 09-27-2024 End: 09-27-2024 [facility] Start: 09-27-2024 [facility] Start: 09-24-2024 [facility] Start: 09-19-2024 Development of care plan [facility] Start: 09-19-2024 Developing a treatment plan [facility] Start: 09-19-2024 Following clinical pathway protocol [facility] Start: 09-19-2024 Peripherally inserted central catheter care [facility] Start: 09-18-2024 Consultation [facility] Start: 09-18-2024 Peripherally inserted central catheter care [facility] Start: 09-18-2024 Contact precautions [facility] Start: 09-18-2024 [facility] Start: 09-18-2024 Contact precautions [facility] Start: 09-18-2024 Provision of activity privileges [facility] Start: 09-18-2024 Wound care [facility] Start: 09-18-2024 Admission procedure [facility] Start: 09-18-2024 Introduction of urinary catheter [facility] Start: 09-18-2024 Measuring intake and output [facility] Start: 09-18-2024 Patient referral to dietitian [facility] Start: 09-18-2024 Referral to occupational therapist [facility] Start: 09-18-2024 Referral to service [facility] Start: 09-18-2024 Vital signs measurements [facility] Start: 09-18-2024 End: 09-18-2024 [facility] Start: 09-18-2024 Application of device [facility] Start: 09-18-2024 Patient discharge [facility] Start: 09-18-2024 [facility] Start: 09-16-2024 Consultation [facility] Start: 09-15-2024 Referral to service [facility] Start: 09-14-2024 Oxygen therapy [facility] Start: 09-14-2024 Referral to service [facility] Start: 09-14-2024 Admission procedure [facility] Start: 09-14-2024 Inhalation therapy procedure [facility] Start: 09-13-2024 Application of intermittent pneumatic compression device [facility] Start: 09-13-2024 Following clinical pathway protocol [facility] Start: 09-13-2024 Recommendation to continue with treatment [facility] Start: 09-13-2024 Ambulation therapy management [facility] Start: 09-13-2024 Application of device [facility] Start: 09-13-2024 Assessment of risk of venous thromboembolism [facility] Start: 09-13-2024 Catheterization of vein [facility] Start: 09-13-2024 Following clinical pathway protocol [facility] Start: 09-13-2024 Introduction of urinary catheter [facility] Start: 09-13-2024 Measuring intake and output [facility] Start: 09-13-2024 Neurovascular assessment [facility] Start: 09-13-2024 Patient education [facility] Start: 09-13-2024 Procedure discontinued [facility] Start: 09-13-2024 Provision of activity privileges [facility] Start: 09-13-2024 Referral to occupational therapist [facility] Start: 09-13-2024 Vital signs measurements [facility] Start: 09-13-2024 Wound care [facility] Start: 09-13-2024 [facility] Start: 09-13-2024 Admission procedure [facility] Start: 09-13-2024 Consultation [facility] Start: 09-13-2024 [facility] Start: 09-13-2024 Acid Fast Bacilli Culture Acid Fast Bacilli Culture [facility] Start: 09-13-2024 Acid Fast Bacilli Smear Acid Fast Bacilli Smear [facility] Start: 09-13-2024 Blood culture Blood Culture [facility] Start: 09-13-2024 Fungal Culture Fungal Culture [facility] Start: 09-13-2024 Fungal Smear Fungal Smear [facility] Start: 09-13-2024 Acid fast bacilli culture [facility] Start: 09-13-2024 Medication education [facility] Start: 09-13-2024 Mycology culture [facility] Start: 09-11-2024 Acid Fast Bacilli Culture Acid Fast Bacilli Culture [facility] Start: 09-11-2024 Acid Fast Bacilli Smear Acid Fast Bacilli Smear [facility] Start: 09-11-2024 Fungal Culture Fungal Culture [facility] Start: 09-11-2024 Acid fast bacilli culture [facility] Start: 03-03-2020 Influenza vaccination INFLUENZA (#1) [facility] Start: 2014 ADVANCE DIRECTIVE DISCUSSION ADVANCE DIRECTIVE DISCUSSION [facility] Start: 2014 BONE DENSITY BONE DENSITY [facility] Start: 2014 PNEUMOVAX AGE 65 AND OVER WITH 5YR LOOKBACK (#1) PNEUMOVAX AGE 65 AND OVER WITH 5YR LOOKBACK (#1) [facility] Start: 09-17-2009 LIPID SCREEN LIPID SCREEN [facility] Start: 08-25-2009 DIABETES SCREEN DIABETES SCREEN [facility] Start: 04-11-2007 Mammography MAMMOGRAM [facility] Start: 1999 SHINGRIX VACCINE (1 of 2) SHINGRIX VACCINE (1 of 2) [facility] Start: 01-10-1968 Urine microalbumin profile DTAP,TDAP,TD (1 - Tdap) [facility] Start: 1967 ANNUAL PCP TEAM CHRONIC DISEASE VISIT ANNUAL PCP TEAM CHRONIC DISEASE VISIT [facility] Start: 1967 BP CONTROLLED (<130/80) BP CONTROLLED (<130/80) [facility] Start: 1967 HEPATITIS C SCREENING HEPATITIS C SCREENING [facility] Acid fast bacilli culture [facility] Alanine aminotransfe rase [Enzymatic activity/volume] in Serum or Plasma [facility] Albumin [Mass/volume ] in Serum or Plasma [facility] Alkaline phosphatase [Enzymatic activity/volume] in Serum or Plasma [facility] Anion gap in Serum o r Plasma [facility] Bacteria identified in Sputum by Respiratory culture [facility] Bilirubin, total measurement [facility] BUN/Creatinine ratio [facility] Calcium [Mass/volume ] in Serum or Plasma [facility] Carbon dioxide, tota l [Moles/volume] in Central venous blood [facility] Creatinine [Mass/vol ume] in Serum or Plasma [facility] Erythrocyte mean corpuscular volume determination [facility] Erythrocyte sediment ation rate [facility] Fungus identified in Unspecified specimen by Culture [facility] Fungus identified in Unspecified specimen by Fungus stain [facility] Glucose [Mass/volume ] in Serum or Plasma [facility] Hematocrit [Volume Fraction] of Blood [facility] Hemoglobin [Mass/vol ume] in Blood [facility] Leukocytes [#/volume ] in Blood [facility] Mean corpuscular hem oglobin concentration determination [facility] Mean corpuscular hem oglobin determination [facility] Measurement of renal function [facility] Mycobacterium sp geoff ntified in Unspecified specimen by Organism specific culture [facility] Natriuretic peptide. B prohormone N-Terminal [Mass/volume] in Serum or Plasma [facility] Neutrophil count [facility] Neutrophil percent differential count [facility] Osmolality of Urine [facility] Patient Education PICC PICC Robbins ge Dressing Dc Caring for Your PICC Dc PICC Line [facility] Flushing Your PICC Line at Home ED PICC Line Care [facility] Work Phone: Patient referral [facility] Work Phone: Platelets [#/volume] in Blood [facility] Potassium measurement [facility] Red blood cell count [facility] Red cell distributio n width determination [facility] Serum chloride measurement [facility] Sodium measurement [facility] Total protein measurement [facility] Urea nitrogen [Mass/ volume] in Serum or Plasma [facility] Urine culture [facility] Heart limited [facility] Vancomycin [Mass/vol ume] in Serum or Plasma --trough [facility] Immunizations Immunization Date Immunization Notes Care Provider [facility] 04-16-2020 Influenza virus vaccine [facility] 04-16-2020 Dr. Kamar Grimes MD Work Phone: [facility] 08-09-2018 pneumococcal polysaccharide vaccine, [address] Kamar Grimes MD Work Phone: [facility] 04-26-2017 influenza, injectabl e, quadrivalent, preservative free [facility] 04-26-2017 influenza, seasonal, injectable [facility] 12-02-2015 pneumococcal conjuga te vaccine, [address] Kamar Grimes MD Work Phone: [facility] Payers Date Payer Category Payer Medicaid [id number] 2024 Self-pay [id number] 2024 Unknown [id number] 1950 Unknown [id number] 2.16840.1.682571.3.579.2.6 51 1950 Unknown [id number] 2.16840.1.230739.3.579.2.6 27 Medicaid [id number] Medicare [id number] Private Health Insurance [id number] Unknown [id number] Unknown [id number] Unknown [facility] MEDICARE [id number] Unknown [id number] 2.16.840.1.892461.3.579.2.4 62 Unknown [id number] 2.16840.1.558378.3.579.2.4 62 Unknown [id number] 2.16.840.1.239028.3.579.2.4 62 Unknown [id number] 2.16.840.1.163023.3.579.2.4 62 Unknown [id number] 2.16.840.1.835425.3.579.2.4 62 Unknown [id number] 2.16.840.1.868016.3.579.2.4 62 Unknown [id number] 2.16.840.1.528518.3.579.2.4 62 Unknown [id number] 2.16.840.1.440553.3.579.2.4 62 Unknown [id number] 2.16.840.1.430050.3.579.2.4 62 Unknown [id number] 2.16.840.1.474789.3.579.2.4 62 Unknown [id number] 2.16.840.1.961451.3.579.2.4 62 Unknown [id number] 2.16.840.1.814068.3.579.2.4 62 Unknown [id number] 2.16.840.1.537885.3.579.2.4 62 Unknown [id number] 2.16.840.1.565958.3.579.2.4 62 Unknown [id number] 2.16.840.1.349733.3.579.2.4 62 Unknown [id number] 2.16.840.1.564284.3.579.2.4 62 Unknown [id number] 2.16.840.1.818108.3.579.2.4 62 Unknown [id number] 2.16.840.1.322893.3.579.2.4 62 Unknown [id number] 2.16.840.1.905300.3.579.2.4 62 Unknown [id number] 2.16.840.1.870670.3.579.2.4 62 Unknown [id number] 2.16.840.1.313123.3.579.2.4 62 Unknown [id number] 2.16.840.1.581176.3.579.2.4 62 Unknown [id number] 2.16.840.1.277966.3.579.2.4 62 Unknown [id number] 2.16.840.1.527442.3.579.2.4 62 Unknown [id number] 2.16.840.1.734118.3.579.2.4 62 Unknown [id number] 2.16.840.1.254595.3.579.2.4 62 Unknown [id number] 2.16.840.1.734596.3.579.2.4 62 Unknown [id number] 2.16.840.1.424594.3.579.2.4 62 Unknown [id number] 2.16.840.1.207328.3.579.2.4 62 Unknown [id number] 2.16.840.1.041156.3.579.2.4 62 Unknown [id number] 2.16.840.1.190558.3.579.2.4 62 Unknown [id number] 2.16.840.1.793237.3.579.2.4 62 Unknown [id number] 2.16.840.1.740894.3.579.2.4 62 Unknown [id number] 2.16.840.1.512687.3.579.2.4 62 Unknown [id number] 2.16.840.1.378898.3.579.2.4 62 Unknown [id number] 2.16.840.1.618201.3.579.2.4 62 Unknown [id number] 2.16.840.1.616797.3.579.2.4 62 Unknown [id number] 2.16.840.1.857864.3.579.2.4 62 Unknown [id number] 2.16.840.1.438598.3.579.2.4 62 Unknown [id number] 2.16.840.1.442593.3.579.2.4 62 Unknown [id number] 2.16.840.1.467672.3.579.2.4 62 Unknown [id number] 2.16.840.1.959145.3.579.2.4 62 Unknown [id number] 2.16.840.1.730158.3.579.2.4 62 Social History Date Type Detail Facility Start: 06-12-2006 End: 04-18-2025 Tobacco smoking status NHIS Former smoker [facility] Start: 06-12-2006 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) [facility] Sex Assigned At Not on file [facility] Start: 06-11-2020 End: 06-11-2020 Tobacco smoking status KYIS Unknown if ever smoked [facility] Start: 06-11-2020 Non-smoker [facility] Start: 1950 Sex Assigned At Female [facility] Start: 09-18-2024 End: 10-08-2024 Sex Female (finding) [facility] Sex [facility] NEGATED: Highlighted row Not [facility] Medical Equipment Procedure Code Equipment Code [...] Assessment Result Facility 04-23-2025 Functional status Independent [facility] Work Phone: 04-22-2025 Functional status Ambulates [facility] Work Phone: 03-26-2025 Functional status Bathroom Privilege [facility] Work Phone: 03-19-2025 Functional status Bedrest [facility] Work Phone: 10-08-2024 Functional status Ambulates;Up a d shanna;Bathroom Privilege;Back to bed [facility] Work Phone: 09-18-2024 Functional status Ambulates;Ricky r;Bathroom Privilege [facility] Work Phone: 09-17-2024 Functional status Tolerates Activity Well [facility] Work Phone: Mental Status Date Assessment Result Facility 04-23-2025 Cognitive function Voice/Name [facility] Work Phone: 03-26-2025 Cognitive function Voice/Name [facility] Work Phone: 03-19-2025 Cognitive function Voice/Name [facility] Work Phone: 10-08-2024 Cognitive function Voice/Name [facility] Work Phone: 10-05-2024 Cognitive function Appropriate;Cooperativ e [facility] Work Phone: 09-18-2024 Cognitive function Voice/Name [facility] Work Phone: Clinical Notes 09-13-2024 to 04-23-2025 Note Date & Type Note Facility 04-23-2025 Discharge summary Note Date/Time April 23, 2025 6:11pm [facility] Medical Records Department [address] [place] [address] Discharge Summary 04/23/25 1708 MR#: [id number] Acct: [id number] Name: OSCAR OWO Rep #:[id number] : 1950 75 From: Garfield Chi PCP: Dr. Kamar Grimes MD Status:ADM IN Location: [place] [address] Providers Date of Admission: 04/18/25 Date of Discharge: 04/23/25 Primary Care Physician: Dr. Kamar Grimes MD Consultations 04/18/25 22:05 Consult: Nephrology Routine Consulting Provider: Keya Basilio Reason for Consult: worsening hyponatremia, severe hypochloremia, ELVIA EMERGENT Consult: No MD Notified: Yes Date Notified: 04/19/25 Time Notified: 06:47 Method of Notification: Answering Service 04/19/25 14:46 Consult: Latin American Studies Professor / Pulmonary Medicine Routine Consulting Provider: Intensivists/Pulmonary Med Reason for Consult: hypotension, dizzy EMERGENT Consult: No Notified: Yes Date Notified: 04/19/25 Time Notified: 14:44 Method of Notification: Answering Service Reason For Visit: HYPONATREMIA, FALLS Diagnosis Discharge Diagnosis (1) Hyponatremia: Status: Acute Code(s): E87.1 - Hypo-osmolality and hyponatremia Plan Patient is a 75-year-old female who presented to [facility] ED on 04/18/2025 with worsening hyponatremia [...] Repeat sodium was 123. Improved 3 mEq. Fabrication Welder is consulted. Calculated serum iron 267. Measured [...] normal range.UA negative, hCG 1.015, protein 30. Fabrication Welder on board 04/21: Serum sodium improved 127 today. K4.2. Bicarb of 37.5. Anion gap 5. Osmolar gap was normal as mentioned above. 04/22 was seen by mathematics improvement teacher. Sodium and chloride at baseline. Sodium 130 [...] % (Auto) 66.8, Lymph % (Auto) 18.2 L,Dolores % (Auto) 8.7, Eos % (Auto) 3.7, [...] PO DINNER RLS 04/16/25 OXYGEN - Supplemental ([facility] INFORMATIONAL USE ONLY) hypoxia 04/21/25 carvedilol 3.125 [...] 0.5 mg PO DINNER OXYGEN - Supplemental ([facility] INFORMATIONAL USE ONLY) Patient Comments: DME: Narciso [...] in before D/C Order can be placed): [facility] Charges/Coding Visit Charges Inpatient E&M: 48676 Disch Hosp >30min 04/23/25 1711 <Electronically signed by Garfield Pierson MD> Cosigner Signature (if applicable): CC: Dr. Kamar Grimes MD; Dr. Garfield Pierson MD~ Signed [facility] Work Phone: 1(265) 378-455210-22-2025 [place] [address]-22-2025 Hospital Discharge instructionsAdditional Instructions Date of Discharge: 04/23/25[facility] Work Phone: 1(163) 238-711110-21-2025 Progress note Author Garfield Pierson [facility] Note Date/Time April 22, 2025 6 :33pm [facility] Medical Records Department [address] [place] [address] Progress Note - Hospitalist 04/22/25 1729 MR#: [id number] Acct: [id number] Name: OSCAR WOO Rep #:[id number] : 1950 75 From: Garfield Chi PCP: Dr. Kamar Grimes MD Status:ADM IN Location: [place] [address]- 1 Reason for Visit Chief Complaint: Worsening [...] % (Auto) 66.8, Lymph % (Auto) 18.2 L,Dolores % (Auto) 8.7, Eos % (Auto) 3.7, [...] is a 75-year-old female who presented to [facility] ED on 04/18/2025 with worsening hyponatremia [...] Repeat sodium was 123. Improved 3 mEq. Fabrication Welder is consulted. Calculated serum iron 267. Measured [...] normal range.UA negative, hCG 1.015, protein 30. Fabrication Welder on board 04/21: Serum sodium improved 127 today. K4.2. Bicarb of 37.5. Anion gap 5. Osmolar gap was normal as mentioned above. 04/22 was seen by mathematics improvement teacher. Sodium and chloride at baseline. Sodium 130 [...] % (Auto) 66.8, Lymph % (Auto) 18.2 L,Dolores % (Auto) 8.7, Eos % (Auto) 3.7, [...] Calcium 9.7 Charges/Coding Visit Charges Inpatient E&M: 54655 Subs Hosp L2 04/22/25 1736 <Electronically signed by Garfield Pierson MD> Cosigner Signature (if applicable): CC: ~ Signed [facility] Work Phone: 1(855) 156-547910-21-2025 Progress note Author Keya Basilio [facility] Note Date/Time April 23, 2025 7 :52pm [facility] Medical Records Department [address] [place] [address] Progress Note - Nephrology 04/22/251724 MR#: [id number] Acct: [id number] Name: SOCAR WOO Rep #:[id number] : 1950 75 From: Keya kendrick MD PCP: Dr. Kamar Grimes MD Status:ADM IN Location: [place] [address] Subjective Subjective no new events Objective Data [...] % (Auto) 66.8, Lymph % (Auto) 18.2 L,Dolores % (Auto) 8.7, Eos % (Auto) 3.7, [...] Cosigner Signature (if applicable): CC: ~ Signed [facility] Work Phone: 1(947) 457-262210-20-2025 Consult note Author Keya Basilio [facility] Note Date/Time April 21, 2025 9 :53pm [facility] Medical Records Department [address] [place] [address] Consultation - Nephrology 04/21/252049 MR#: [id number] Acct: [id number] Name: OSCAR WOO Rep #:[id number] : 1950 75 From: Keya kendrick MD PCP: Dr. Kamar Grimes MD Status:ADM [facility] Assessment & Plan Assessment/Plan (1) [...] no edema right now. no urinary complaints. [facility] Medical History Saccular aneurysm Infection of [...] RLS 5 Unknown History OXYGEN - Supplemental ([facility] hypoxia 04/21/25 Unknown Hi story INFORMATIONAL USE [...] 74.4 H, Lymph % (Auto) 13.3 L, Dolores % (Auto) 8.1, Eos % (Auto) 2.6, [...] applicable): CC: Dr. Kamar Grimes MD~ Signed [facility] Work Phone: 1(229) 660-531710-20-2025 Progress note Author Garfield Pierson [facility] Note Date/Time April 21, 2025 9 :39am [facility] Medical Records Department [address] [place] [address] Progress Note - Hospitalist 04/21/25832 MR#: [id number] Acct: [id number] Name: OSCAR WOO Rep #:[id number] : 1950 75 From: Garfield Chi PCP: Dr. Kamar Grimes MD Status:ADM IN Location: ICU [place] [address] 1-1 Reason for Visit Chief Complaint: Worsening [...] Sl. Cloudy, Urine pH 6.0, Ur Specific [place] 1.010, Urine Protein 30 H, Urine Glucose [...] 74.4 H, Lymph % (Auto) 13.3 L, Dolores % (Auto) 8.1, Eos % (Auto) 2.6, [...] is a 75-year-old female who presented to [facility] ED on 04/18/2025 with worsening hyponatremia [...] Repeat sodium was 123. Improved 3 mEq. Fabrication Welder is consulted. Calculated serum iron 267. Measured [...] normal range.UA negative, hCG 1.015, protein 30. Fabrication Welder on board 04/21: Serum sodium improved 127 [...] Sl. Cloudy, Urine pH 6.0, Ur Specific [place] 1.010, Urine Protein 30 H, Urine Glucose [...] 74.4 H, Lymph % (Auto) 13.3 L, Dolores % (Auto) 8.1, Eos % (Auto) 2.6, [...] Calcium 9.0 Charges/Coding Visit Charges Inpatient E&M: 24729 Subs Hosp L2 04/21/25 0839 <Electronically signed by Garfield Pierson MD> Cosigner Signature (if applicable): CC: ~ Signed [facility] Work Phone: 1(161) 970-971410-19-2025 Progress note Author Reginaldo Fatima [facility] Note Date/Time April 20, 2025 3 :29pm [facility] Medical Records Department [address] [place] [address] Progress Note - Latin American Studies Professor 04/20/25 1428 MR#: [id number] Acct: [id number] Name: OSCAR WOO Rep #:[id number] : 1950 75 From: Reginaldo Fatima MD PCP: Dr. Kamar Grimse MD Status:ADM IN Location: ICU CVICU20 1-1 [...] mls @ 15 mls/hr 04/19/25 02:16 IV .[id number] PRN Saline Flush Sodium Chloride 250 mls @ 15 mls/hr 04/19/25 02:16 IV .[id number] PRN Additional IVPB Infusion Melatonin 10 mg [...] (Auto) 72.5 H, Lymph % (Auto) 15.6 L,Dolores % (Auto) 7.9, Eos % (Auto) 2.7, [...] (Auto) 73.3 H, Lymph % (Auto) 14.8 L,Dolores % (Auto) 7.7, Eos % (Auto) 2.9, [...] Sl. Cloudy, Urine pH 6.0, Ur Specific [place] 1.010, Urine Protein 30 H, Urine Glucose [...] No focal consolidation. Mild cardiomegaly. Reading Location: [id number] Assessment and Plan . Assessment and plan: [...] Cosigner Signature (if applicable): CC: ~ Signed [facility] Work Phone: 1(183) 808-781110-19-2025 Progress note Author Garfield Pierson [facility] Note Date/Time April 20, 2025 9 :21am [facility] Medical Records Department [address] [place] [address] Progress Note - Hospitalist 04/20/25725 MR#: [id number] Acct: [id number] Name: OSCAR WOO Rep #:[id number] : 1950 75 From: Garfield Chi PCP: [...] (Auto) 72.5 H, Lymph % (Auto) 15.6 L,Dolores % (Auto) 7.9, Eos % (Auto) 2.7, [...] (Auto) 73.3 H, Lymph % (Auto) 14.8 L,Dolores % (Auto) 7.7, Eos % (Auto) 2.9, [...] No focal consolidation. Mild cardiomegaly. Reading Location: [facility] Physical Exam Narrative Seen and examined Patient [...] is a 75-year-old female who presented to [facility] ED on 04/18/2025 with worsening hyponatremia [...] Repeat sodium was 123. Improved 3 mEq. Fabrication Welder is consulted. Calculated serum iron 267. Measured [...] normal range.UA negative, hCG 1.015, protein 30. Fabrication Welder on board 2. ELVIA with mild hyperkalemia, [...] 35 minutes. Charges/Coding Visit Charges Inpatient E&M: 46822 Subs Hosp L3 04/20/25 0821 <Electronically signed by Garfield Pierson MD> Cosigner Signature (if applicable): CC: ~ Signed [facility] Work Phone: 1(991) 737-676910-18-2025 Consult note Author Reginaldo Fatima [facility] Note Date/Time April 19, 2025 7 :01pm [facility] Medical Records Department [address] [place] [address] Consultation - Latin American Studies Professor 04/19/25 1750 MR#: [id number] Acct: [id number] Name: OSCAR WOO Rep #:[id number] : 1950 75 From: Reginaldo Fatima MD [...] SOB but her brain still seems "foggy". [facility] Medical History Saccular aneurysm Infection of [...] mls @ 15 mls/hr 04/19/25 02:16 IV .[id number] PRN Saline Flush Sodium Chloride 250 mls @ 15 mls/hr 04/19/25 02:16 IV .[id number] PRN Additional IVPB Infusion Melatonin 10 mg [...] 72.5 H, Lymph % (Auto) 15.6 L, Dolores % (Auto) 7.9, Eos % (Auto) 2.7, [...] No focal consolidation. Mild cardiomegaly. Reading Location: [facility] Assessment and Plan . Assessment and plan: [...] this encounter was done via Telemedicine 04/19/25 6154 <Electronically signed by Reginaldo Fatima MD> Cosigner Signature (if applicable): CC: Dr. Kamar Grimes MD~ Signed [facility] Work Phone: 1(659) 866-227510-18-2025 Progress note Author Garfield Pierson [facility] Note Date/Time April 19, 2025 5 :45pm [facility] Medical Records Department [address] [place] [address] Progress Note - Hospitalist 04/19/25 1137 MR#: [id number] Acct: [id number] Name: OSCAR WOO Rep #:[id number] : 1950 75 From: Garfield Chi PCP: [...] 77.8 H, Lymph % (Auto) 10.9 L, Dolores % (Auto) 8.9, Eos % (Auto) 1.6, [...] is a 75-year-old female who presented to [facility] ED on 04/18/2025 with worsening hyponatremia [...] Repeat sodium was 123. Improved 3 mEq. Fabrication Welder is consulted. Calculated serum iron 267. Measured [...] 35 minutes. Charges/Coding Visit Charges Inpatient E&M: 38679 Subs Hosp L3 04/19/25 9142 <Electronically signed by Garfield Pierson MD> Cosigner Signature (if applicable): CC: ~ Signed [facility] Work Phone: 1([phone]) 248-298310-18-2025 Progress note Author Keya Basilio [facility] Note Date/Time April 19, 2025 5 :34pm [facility] Medical Records Department [address] [place] [address] Progress Note 04/19/25 1633 MR#: [id number] Acct: [id number] Name: OSCAR WOO Rep #:[id number] : 1950 75 From: Keya kendrick MD PCP: Dr. Kamar Grimes MD Status:ADM IN Location: ICU CVICU 07-03 Progress Note attempted to see earlier. was not in room. chart reviewed. normal baseline sodium. hyponatremia, hypochloremia, likely volume depletion. 04/19/25 1634 <Electronically signed by Keya Basilio MD> Keya Basilio MD Cosigner Signature (if applicable): CC: ~ Signed [facility] Work Phone: 1(305) 695-316210-18-2025 Radiology Diagnostic study [facility]10-18-2025 Radiology Diagnostic study [facility]10-18-2025 History and physical note Author Jermaine [facility] Note Date/Time April 18, 2025 1 1:05pm [facility] Medical Records Department [address] [place] [address] H&P Exam - Hospitalist 04/18/25 1717 MR#: [id number] Acct: [id number] Name: OSCAR WOO Rep #:[id number] : 1950 75 From: Jermaine cardona DO PCP: Dr. Kamar Grimes MD Status:ADM [facility] HPI - General General Date of Admission: 04/18/25 Date of Service: 04/18/25 Chief Complaint: Worsening hyponatremia and falls HPI Narrative OSCAR WOO, is a 75 F who presented to [facility] on 04/18/2025 with worsening hyponatremia and falls at home. Patient lives at [facility]. Medical history significant for class II obesity [...] currently. Will be admitted for further management. [facility] Medical History Saccular aneurysm Infection of [...] 77.8 H, Lymph % (Auto) 10.9 L, Dolores % (Auto) 8.9, Eos % (Auto) 1.6, [...] is a 75-year-old female who presented to [facility] ED on 04/18/2025 with worsening hyponatremia [...] 86 minutes. Charges/Coding Visit Charges Inpatient E&M: 57705 Init Hosp L3 04/18/251 <Electronically signed by Jermaine Simms DO> Cosigner Signature (if applicable): CC: Dr. Jermaine Simms DO; Dr. Kamar Grimes MD~ Signed [facility] Work Phone: 1([phone]) 928-479310-17-2025 Discharge summary Author Deion Levy [facility] Note Date/Time April 18, 2025 6 :26pm [facility] Medical Records Department [address] [place] [address] Emergency Department Summary 04/18/25 MR#: [id number] Acct: [id number] Name: OSCAR WOO Rep #:[id number] : 1950 75 From: Deion Levy MD [...] Prior similar symptoms: No Recent Illness/Hospitalization: No [facility] Medical History Saccular aneurysm Infection of prosthetic [...] steroids recently. There is no concern for [place]'s disease. She in my opinion does not [...] 77.8 H Lymph % (Auto) 10.9 L Dolores % (Auto) 8.9 Eos % (Auto) 1.6 [...] Hypertension, Depression Disposition Disposition: Acute Care Hospital [facility] What to do if you have Problems For any increased pain, shortness of breath, bleeding, nausea or vomiting, chestpain, or any unexpected problems, contact your Primary Care Provider. Call [facility] ([phone]) or report to the closest Emergency Room. Call 911 if necessary. 04/18/251725 <Electronically signed by Deion Levy MD> Cosigner Signature (if applicable): CC: Dr. Kamar Grimes MD ~ Signed [facility] Work Phone: 1(386) 202-539610-17-2025 Discharge summary Author Deion Levy [facility] Note Date/Time April 18, 2025 5 :26pm [facility] Medical Records Department [address] [place] [address] Emergency Department Summary 04/18/25 MR#: [id number] Acct: [id number] Name: OSCAR WOO Rep #:[id number] : 1950 75 From: Deion Levy MD [...] similar symptoms: No Recent Illness/Hospitalization: No [facility] Medical History Saccular aneurysm Infection of [...] She in my opinion does not have Irvona syndrome either. I believe her symptoms are [...] 77.8 H Lymph % (Auto) 10.9 L Dolores % (Auto) 8.9 Eos % (Auto) 1.6 [...] Hypertension, Depression Disposition Disposition: Acute Care Hospital [facility] What to do if you have Problems For any increased pain, shortness of breath, bleeding, nausea or vomiting, chestpain, or any unexpected problems, contact your Primary Care Provider. Call [facility] ([phone]) or report to the closest Emergency Room. Call 911 if necessary. 04/18/25 1726 <Electronically signed by Deion Levy MD> Cosigner Signature (if applicable): CC: Dr. Kamar Grimes MD ~ Signed [facility] Work Phone: 1(483) 651-196010-15-2025 Progress note Author Mike Reddy [facility] Note Date/Time April 16, 2025 4 :26pm [facility] [address] [place] [address]. [address] [place] [address] OFFICE VISIT Date of Service: 04/16/25 MR#: [id number] Acct: [id number] Name: OSCAR WOO Rep #: [id number] : 1950 Provider: Dr. Ajit Reddy MD Age/Sex: 75/F Location: [facility] Status: Signed HPI HPI History of Present Illness Details: Patient is a 75-year-old white female that comes in with family for follow-up after prolonged hospitalization at [facility]. Patient was admitted with profound hypotension [...] it on in office Intake Visit Reasons: [facility] HOSP F/U, 03/27/25, [employer] Sales Representative Required: No Accompanied by: Cousin, Sister Is [...] Orders: Orders 12 Lead EKG performed by [facility] Today I10 - Essential (primary) hypertension Echo, [...] Additional Comments: This note was generated with Kasumi-souation software. It may contain incorrectwords, spelling, and [...] applicable) CC: Dr. Kamar Grimes MD ~ [employer] Work Phone: 1(720) 779-419809-24-2025 Discharge summary Author Karlapatrick Bustamante [facility] Note Date/Time March 26, 2025 1:42pm [facility] Medical Records Department [address] [place] [address] Discharge Summary 03/26/25 1309 MR#: [id number] Acct: [id number] Name: OSCAR WOO Rep #:[id number] : 1950 75 From: Karla Bustamante DO PCP: Dr. Kamar Grimes MD Status:ADM IN [facility] Providers Date of Admission: 03/18/25 Date of Discharge: 03/26/25 Primary Care Physician: Dr. Kamar Grimes MD Consultations 03/18/25 20:43 Consult: Latin American Studies Professor / Pulmonary Medicine Routine Consulting Provider: [facility] Reason for Consult: Vent management, undifferentiated shock EMERGENT Consult: No MD Notified: Yes Date Notified: 03/19/25 Time Notified: 00:10 Method of Notification: Text 03/19/25 00:33 Consult: Onc/Wound/associate financial advisor Routine Comment: Reason for Consult:: Per ICU [...] 75-year-old white female who presents emergency department [facility] on 03/18/2025 with altered mental status. [...] her insurance company which they declined for senior living facility. Home health was set up. We [...] 78.0 H, Lymph % (Auto) 9.6 L, Dolores % (Auto) 10.1 H, Eos % (Auto) [...] Health Service Charges/Coding Visit Charges Inpatient E&M: 83652 Disch Hosp >30min 03/26/25 1342 <Electronically signed by Karla Bustamante DO> Cosigner Signature (if applicable): CC: Dr. Kamar Grimes MD; Dr. Karla Bustamante DO~ Signed [facility] Work Phone: 1(650) 581-207109-24-2025 [facility]09-23-2025 Progress note Author Karla Bustamante [facility] Note Date/Time March 25, 2025 6:11pm [facility] Medical Records Department [address] [place] [address] Progress Note - Hospitalist 03/25/25 180 MR#: [id number] Acct: [id number] Name: OSCAR WOO Rep #:[id number] : 1950 75 From: Karla Bustamante DO PCP: Dr. Kamar Grimes MD Status:ADM IN Location: [place] [address] Reason for Visit Chief Complaint: Altered mental [...] (Auto) 79.2 H, Lymph % (Auto) 9.4L, Dolores % (Auto) 9.3, Eos % (Auto) 1.4, [...] from insurance Charges/Coding Visit Charges Inpatient E&M: 44615 Subs Hosp L2 Date medically ready for discharge: 03/24/25 Reason for DC delay: Precert pending from insurance 03/25/251810 <Electronically signed by Karla Bustamante DO> Cosigner Signature (if applicable): CC: ~ Signed [facility] Work Phone: 1(940) 884-995509-22-2025 Progress note Author Karla Bustamante [facility] Note Date/Time March 24, 2025 4:50pm [facility] Medical Records Department [address] [place] [address] Progress Note - Hospitalist 03/24/25 1636 MR#: [id number] Acct: [id number] Name: OSCAR WOO Rep #:[id number] : 1950 75 From: Karla Bustamante DO PCP: Dr. Kamar Grimes MD Status:ADM IN Location: [place] [address] Reason for Visit Chief Complaint: Altered mental [...] (Auto) 75.3 H, Lymph % (Auto) 9.8L, Dolores % (Auto) 12.2 H, Eos % (Auto) [...] from insurance Charges/Coding Visit Charges Inpatient E&M: 70234 Subs Hosp L2 Date medically ready for discharge: 03/24/25 Reason for DC delay: Precert pending from insurance 03/24/25 1650 <Electronically signed by Karla Bustamante DO> Cosigner Signature (if applicable): CC: ~ Signed [facility] Work Phone: 1(422) 517-603509-22-2025 Progress note Author Sixto Andrade [facility] Note Date/Time March 24, 2025 2:[address] [place] [address] Health System Medical Records Department [address] [place] [address] Progress Note - Infect Disease 03/24/25 1429 MR#: [id number] Acct: [id number] Name: OSCAR WOO Rep #:[id number] : 1950 75 From: Sixto calhoun MD PCP: Dr. Kamar Grimes MD Status:ADM IN Location: [place] [address] Physical Exam Narrative Feeling better, no fever, [...] Cosigner Signature (if applicable): CC: ~ Signed [facility] Work Phone: 1(948) 770-554409-21-2025 Progress note Author Otilia Hernandez [facility] Note Date/Time March 23, 2025 5:07pm [facility] Medical Records Department [address] [place] [address] Progress Note 03/23/25 1207 MR#: [id number] Acct: [id number] Name: OSCAR WOO Rep #:[id number] : 1950 75 From: Otilia Hernandez MD PCP: Dr. Kamar Grimes MD Status:ADM IN Location: [place] [address] Subjective Subjective Patient seen and examined. She [...] 72.4 H, Lymph % (Auto) 15.5 L, Dolores % (Auto) 9.8, Eos % (Auto) 1.6, [...] medically stable Charges/Coding Visit Charges Inpatient E&M: 83627 Subs Hosp L2 03/23/25 1707 <Electronically signed by Otilia Hernandez MD> Otilia Hernandez MD Cosigner Signature (if applicable): CC: ~ Signed [facility] Work Phone: 1(163) 532-673409-20-2025 Progress note Author Otilia [facility] Note Date/Time March 22, 2025 3:17pm [facility] Medical Records Department [address] [place] [address] Progress Note 03/22/25 1015 MR#: [id number] Acct: [id number] Name: OSCAR WOO Rep #:[id number] : 1950 75 From: Otilia Hernandez MD PCP: Dr. Kamar Grimes MD Status:ADM IN Location: [place] [address]- 1 Subjective Subjective Patient seen and examined. [...] 90.1 H, Lymph % (Auto) 5.1 L, Dolores % (Auto) 4.1, Eos % (Auto) 0.0, [...] SCDs, Lovenox Charges/Coding Visit Charges Inpatient E&M: 51366 Subs Hosp L2 03/22/25 7939 <Electronically signed by Otilia Hernandez MD> Otilia Hernandez MD Cosigner Signature (if applicable): CC: ~ Signed [facility] Work Phone: 1(745) 672-956309-20-2025 Progress note Author John Quinn [facility] Note Date/Time March 22, 2025 12:32pm [facility] Medical Records Department [address] [place] [address] Progress Note - Latin American Studies Professor 03/22/25 1230 MR#: [id number] Acct: [id number] Name: OSCAR WOO Rep #:[id number] : 1950 75 From: John Chi PCP: Dr. Kamar Grimes MD Status:ADM IN Location: [address] 1 Objective Data Objective Data Vital [...] 03/22/25 10:18 Intake Total 9694.60 Output Total 6762 Balance 2919.60 Current Meds Ordered / Administered: [...] / Sodium Chloride CONT INF Not Given .O49O07V KACEY Protocol 5 MCG/MIN Pantoprazole Sodium 40 mg/ 100 mls @ 300 mls/hr 03/19/25 10:00 03/22/25 10:18 Sodium Chloride IV Infused Q24 KACEY Infusion Meropenem 1 gm/ Sodium 100 mls @ 33 mls/hr 03/19/25 10:00 03/22/25 11:36 Chloride IV 33 mls/hr Q12 KACEY Administration Sodium Chloride 250 mls @ 15 mls/hr 03/18/25 21:14 03/22/25 06:04 IV Infused .[id number] PRN Infusion Saline Flush Sodium Chloride 250 mls @ 15 mls/hr 03/18/25 21:14 IV .O55T23U PRN Additional IVPB Infusion Sodium Chloride 1,000 [...] 90.1 H, Lymph % (Auto) 5.1 L, Dolores % (Auto) 4.1, Eos % (Auto) 0.0, [...] Cosigner Signature (if applicable): CC: ~ Signed [facility] Work Phone: 1(388) [phone] Progress note Author Otilia Hernandez [facility] Note Date/Time March 21, 2025 5:21pm [facility] Medical Records Department [address] [place] [address] Progress Note 03/21/25 1207 MR#: [id number] Acct: [id number] Name: OSCAR WOO Rep #:[id number] : 1950 75 From: Otilia Hernandez MD [...] (Auto) 90.8 H, Lymph % (Auto) 3.4L, Dolores % (Auto) 4.6, Eos % (Auto) 0.1, [...] SCDs, Lovenox Charges/Coding Visit Charges Inpatient E&M: 22834 Subs Hosp L2 03/21/25 1721 <Electronically signed by Otilia Hernandez MD> Otilia Hernandez MD Cosigner Signature (if applicable): CC: ~ Signed [facility] Work Phone: [phone]) 846-694009-19-2025 Progress note Author Sixto Andrade [facility] Note Date/Time March 21, 2025 10:21am [facility] Medical Records Department [address] [place] [address] Progress Note - Infect Disease 03/21/25 1019 MR#: [id number] Acct: [id number] Name: OSCAR WOO Rep #:[id number] : 1950 75 From: Sixto calhoun MD [...] Cosigner Signature (if applicable): CC: ~ Signed [facility] Work Phone: 1(513) 806-171909-19-2025 Progress note Author Antwan Gardner [facility] Note Date/Time March 21, 2025 8:54am [facility] Medical Records Department [address] [place] [address] Progress Note - Latin American Studies Professor 03/21/25 0720 MR#: [id number] Acct: [id number] Name: OSCAR WOO Rep #:[id number] : 1950 75 From: Antwan Gardner DO [...] the patient. This note was generated with uiu dictation software. It may contain incorrectwords, spelling, [...] (Auto) 90.8 H, Lymph % (Auto) 3.4L, Dolores % (Auto) 4.6, Eos % (Auto) 0.1, [...] replacement. There is good alignment. Reading Location: [facility] Physical Exam Const alert, oriented x3 [...] affect normal Charges/Coding Visit Charges Inpatient E&M: 59401 Subs Hosp L3 03/21/25 0854 <Electronically signed by Antwan Gardner DO> Cosigner Signature (if applicable): CC: ~ Signed [facility] Work Phone: 1(419) 841-840509-18-2025 Consult note Author Saroj Rodriguez [facility] Note Date/Time March 20, 2025 9:23pm [facility] Medical Records Department [address] [place] [address] Pharmacokinetic/Renal -Consult 03/20/252121 MR#: [id number] Acct: [id number] Name: OSCAR WOO Rep #:[id number] : 1950 75 From: Saroj العراقي od [...] Signature (if applicable): Date CC: ~ Signed [facility] Work Phone: 1(117) 121-318609-18-2025 Progress note Author Otilia Hernandez [facility] Note Date/Time March 20, 2025 4:05pm [facility] Medical Records Department [address] [place] [address] Progress Note 03/20/25 1352 MR#: [id number] Acct: [id number] Name: OSCAR WOO Rep #:[id number] : 1950 75 From: Otilia Hernandez MD [...] 90.9 H, Lymph % (Auto) 4.1 L, Dolores % (Auto) 4.1, Eos % (Auto) 0.0, [...] replacement. There is good alignment. [facility] Physical Exam Const oriented x3 and [...] SCDs, Lovenox Charges/Coding Visit Charges Inpatient E&M: 57683 Subs Hosp L2 03/20/25 1605 <Electronically signed by Otilia Hernandez MD> Otilia Hernandez MD Cosigner Signature (if applicable): CC: ~ Signed [facility] Work Phone: 1([phone]) 413-839409-18-2025 Consult note Author Sixto Andrade [facility] Note Date/Time March 20, 2025 10:41am [facility] Medical Records Department [address] [place] [address] Consultation - Infectious Dx 03/20/25 1035 MR#: [id number] Acct: [id number] Name: OSCAR WOO Rep #:[id number] : 1950 75 From: Sixto calhoun MD [...] performed and neg except as noted above. [facility] Medical History Infection and inflammatory reaction due [...] 90.9 H, Lymph % (Auto) 4.1 L, Dolores % (Auto) 4.1, Eos % (Auto) 0.0, [...] replacement. There is good alignment. Reading Location: [place] [address] 03/20/25 104 <Electronically signed by Sixto Andrade MD> Cosigner Signature (if applicable): CC: Dr. Kamar Grimes MD~ Signed [facility] Work Phone: 1([phone]) 704-145109-18-2025 Progress note Author Antwan Gardner [facility] Note Date/Time March 20, 2025 9:23am [facility] Medical Records Department [address] [place] [address] Progress Note - Latin American Studies Professor 03/20/25 0727 MR#: [id number] Acct: [id number] Name: OSCAR WOO Rep #:[id number] : 1950 75 From: Antwan Gardner DO [...] 90.9 H, Lymph % (Auto) 4.1 L, Dolores % (Auto) 4.1, Eos % (Auto) 0.0, [...] appropriately. Psych cooperative Charges/Coding Procedures Hospitalists Procedures: 00405 Critical Care 1st Hr 03/20/25922 <Electronically signed by Antwan Gardner DO> Cosigner Signature (if applicable): CC: ~ Signed [facility] Work Phone: 1(580) 422-354409-18-2025 Radiology Diagnostic study [facility]09-18-2025 Consult note Author Saul Kearney [facility] Note Date/Time March 20, 2025 6:59am [facility] Medical Records Department [address] [place] [address] Consultation - Cardiology 03/20/25 0652 MR#: [id number] Acct: [id number] Name: OSCAR WOO Rep #:[id number] : 1950 75 From: Saul Kearney MD [...] rhythmand sinus tachycardia with no acute changes. [facility] Medical History Infection and inflammatory reaction due [...] 90.9 H, Lymph % (Auto) 4.1 L, Dolores % (Auto) 4.1, Eos % (Auto) 0.0, [...] 90.9 H, Lymph % (Auto) 4.1 L, Dolores % (Auto) 4.1, Eos % (Auto) 0.0, [...] applicable): CC: Dr. Kamar Grimes MD~ Signed [facility] Work Phone: 1(714) 349-713909-17-2025 Progress note Author Claire Mayorga [facility] Note Date/Time March 19, 2025 7:34pm [facility] Medical Records Department [address] [place] [address] Progress Note - Hospitalist 03/19/251932 MR#: [id number] Acct: [id number] Name: OSCAR WOO Rep #:[id number] : 1950 75 From: Claire Mayorga MD PCP: Dr. Kamar Grimes MD Status:ADM IN Location: ICU ICU02-1 Hospitalist Note ICU physician recommended ID consultation and possible UE CT. Will place consultfor ID and await their further recommendations. 03/19/251933 <Electronically signed by Claire Mayorga MD> Cosigner Signature (if applicable): CC: ~ Signed [facility] Work Phone: 1(585) 444-950409-17-2025 Progress note Author Otilia Gosscristofer [facility] Note Date/Time March 19, 2025 3:59pm [facility] Medical Records Department [address] [place] [address] Progress Note 03/19/25 1411 MR#: [id number] Acct: [id number] Name: OSCAR WOO Rep #:[id number] : 1950 75 From: Otilia Hernandez MD [...] 84.3 H, Lymph % (Auto) 7.4 L, Dolores % (Auto) 7.0, Eos % (Auto) 0.0, [...] Clarity Clear, Urine pH 6.0, Ur Specific [place] 1.015, Urine Protein 30 H, Urine Glucose [...] 83.0 H, Lymph % (Auto) 11.9 L, Dolores % (Auto) 4.2, Eos % (Auto) 0.1, [...] IMPRESSION: No acute intracranial process. Reading Location: [id number] Chest X-Ray 03/18/25 15:35 IMPRESSION: Bilateral low lung volumes. No acute cardiopulmonary abnormality. Reading Location: [id number]-AH Chest X-Ray 03/18/25 17:44 IMPRESSION: 1. Endotracheal tube tip 3.1 cm above the abigail. 2. Enteric tube appropriately positioned terminating in the upper midabdomen. 3. Cardiomegaly, with increased vascular markings and possible interstitial edema. Reading Location: [facility] KUB X-Ray 03/18/25 18:00 IMPRESSION: Enteric tube terminates appropriately within the stomach. Persistent IV contrast opacifying the kidneys suggesting medical renal disease with delayed excretion. Reading Location: [id number]-IW Abdomen/Pelvis CTA 03/18/25 18:50 IMPRESSION: 1. No acute or active inflammatory intra-abdominal pathology. 2. Stable saccular infrarenal abdominal aortic aneurysm measuring up to 4.4 cm. 3. Indeterminate 15 mm right adrenal gland nodule, probably adenoma. Suggest follow-up dedicated adrenal CT or MRI in 12 months to assess stability. Reading Location: [facility] Chest X-Ray 03/18/25 19:02 IMPRESSION: 1. New right subclavian approach central venous catheter, tip at the lower SVC. 2. Stable positioning of the endotracheal and enteric tubes. 3. Unchanged lung aeration. Stable cardiomegaly. Reading Location: [id number] Echocardiogram 03/19/25 01:33 Interpretation Summary Normal LV [...] patient's body habitus and position. Reading Location: [place] [address] Physical Exam Const Constitutional Narrative: Intubated, sedated, [...] SCDs, Lovenox Charges/Coding Visit Charges Inpatient E&M: 29048 [facility] Hosp 03/19/25 0449 <Electronically signed by Otilia Hernandez MD> Otilia Hernandez MD Cosigner Signature (if applicable): CC: ~ Signed [facility] Work Phone: [phone]) [phone] Discharge summary Author Deion Levy [facility] Note Date/Time March 19, 2025 3:24pm [facility] Medical Records Department [address] [facility] [place] [address] Emergency Department Summary 03/18/25 MR#: [id number] Acct: [id number] Name: OSCAR WOO Rep #:[id number] : 1950 75 From: Deion Levy MD [...] is a 75-year-old woman. She arrived by [employer]. She was met at the ambulance entrance because she reportedly had slurred speech. She was last known well at 160o on March 17. [facility]. She has a bruise noted lateral left [...] 84.3 H Lymph % (Auto) 7.4 L Dolores % (Auto) 7.0 Eos % (Auto) 0.0 [...] Color Urine Clarity Urine pH Ur Specific [place] Urine Protein Urine Glucose (UA) Urine Ketones [...] (Auto) Neut % (Auto) Lymph % (Auto) Dolores % (Auto) Eos % (Auto) Baso % [...] Clarity Clear Urine pH 6.0 Ur Specific [place] 1.015 Urine Protein 30 H Urine Glucose [...] IMPRESSION: No acute intracranial process. Reading Location: [id number]-BP Chest X-Ray 03/18/25 15:35 IMPRESSION: Bilateral low lung volumes. No acute cardiopulmonary abnormality. Reading Location: [facility] Chest X-Ray 03/18/25 17:44 IMPRESSION: 1. Endotracheal tube tip 3.1 cm above the abigail. 2. Enteric tube appropriately positioned terminating in the upper midabdomen. 3. Cardiomegaly, with increased vascular markings and possible interstitial edema. Reading Location: [facility] KUB X-Ray 03/18/25 18:00 IMPRESSION: Enteric tube terminates appropriately within the stomach. Persistent IV contrast opacifying the kidneys suggesting medical renal disease with delayed excretion. Reading Location: [facility] Abdomen/Pelvis CTA 03/18/25 18:50 IMPRESSION: 1. No acute or active inflammatory intra-abdominal pathology. 2. Stable saccular infrarenal abdominal aortic aneurysm measuring up to 4.4 cm. 3. Indeterminate 15 mm right adrenal gland nodule, probably adenoma. Suggest follow-up dedicated adrenal CT or MRI in 12 months to assess stability. Reading Location: [facility] Chest X-Ray 03/18/25 19:02 IMPRESSION: 1. New right subclavian approach central venous catheter, tip at the lower SVC. 2. Stable positioning of the endotracheal and enteric tubes. 3. Unchanged lung aeration. Stable cardiomegaly. Reading Location: [facility] I did review the CAT scan. [...] She also desaturated. She was ventilated by [id number] by respiratory therapist and me. Once her saturation reached 97%she was intubated easily with a 7.5 Mauritian endotracheal tube. The tube was seenpassing through [...] Heather first attempt. Using Seldinger technique 7.5 Mauritian triple-lumen was placed without difficulty. Blood was aspirated from all 3 ports. Will obtain chest x-ray to confirm placement and evaluate for pneumothorax. Chest x-ray status post right subclavian line placement reveals the line to be in proper position. There is no evidence of pneumothorax or hemothorax. Comments:: Secondary School Teacher Librarian is asked to page the hospitalist at [phone]. Procedures Other Procedures Procedure(s): 7.5 Mauritian triple-lumen placed right subclavian. Documentation under [facility] portion of the medical records. Critical Care Time Critical Care Time: Yes Critical care time (excluding procedures): 30-74 minutes (34), Including time spent: (History, physical, documentation, independent or potation laboratory results and images, treatment for hypotension of unknown cause), Discussing w/Patient &/or Family/Property Insurance Agent (Inform patient that since she has gotten worseand has multiple medical problems she will require intubation admission ICU), Discussing w/Consultants (Hospitalist) and Arranging Admission or Transfer Discharge Plan Dx/Rx/DC Orders Clinical Impression: Acute on chronic respiratory failure with hypoxia and hypercapnia, Acute hypotension, Debility, Acute kidney injury, Acute dehydration, Bacteria in urine, Hypothermia Disposition Disposition: Acute Care Hospital [facility] Discharge Date/Time: 03/18/25 20:50 What to do if you have Problems For any increased pain, shortness of breath, bleeding, nausea or vomiting, chestpain, or any unexpected problems, contact your Primary Care Provider. Call [facility] ([phone]) or report to the closest Emergency Room. Call 911 if necessary. 03/19/25 1524 <Electronically signed by Deion Levy MD> Cosigner Signature (if applicable): CC: Dr. Kamar Grimes MD ~ Signed [facility] Work Phone: 1(765) 158-128909-17-2025 Consult note Author Una Smith [facility] Note Date/Time March 19, 2025 3:18pm [facility] Medical Records Department [address] [place] [address] Pharmacokinetic/Renal -Consult 03/18/25 215 MR#: [id number] Acct: [id number] Name: OSCAR WOO Rep #:[id number] : 1950 75 From: Una Smith PCP: [...] Labs: Trough: Vancomycin (03/20/25 @ 21:00) 03/18/25 4402 <Electronically signed by Una Smith> Date _ Una Smith 03/19/25 7248 <Electronically signed by Emili Lee MD> Cosigner Signature (if applicable): Date Emili Lee MD CC: ~ Signed [facility] Work Phone: 1(754) 821-762209-17-2025 Progress note Author Antwan Gardner [facility] Note Date/Time March 19, 2025 10:41am [facility] Medical Records Department [address] [place] [address] Progress Note 03/19/25 0809 MR#: [id number] Acct: [id number] Name: OSCAR WOO Rep #:[id number] : 1950 75 From: Antwan Gardner DO PCP: Dr. Kamar Grimes MD Status:ADM IN Location: ICU ICU02-1 Progress Note The patient was seen and examined this morning, in follow up from telemetry tech evaluation overnight. The patient initially presented to [...] Cosigner Signature (if applicable): CC: ~ Signed [facility] Work Phone: 1([phone]) 542-589109-17-2025 NoteAcceptable Specimen? Acceptable Specimen(Evaluation not needed) Gram Stain 2+ White Blood Cells Rare Gram positive rods No Epithelial cellsWooster Community HospitalComment on above:Performed By: #### M100.2400, M100.1999 ####[facility] [address], [phone] Progress note Author Rivera Ramírez [facility] Note Date/Time March 19, 2025 6:51am [facility] Medical Records Department [address] [place] [address] Progress Note - Hospitalist 03/19/25 0647 MR#: [id number] Acct: [id number] Name: OSCAR WOO Rep #:[id number] : 1950 75 From: Rivera Pollock PCP: Dr. Kamar Grimes MD Status:ADM IN Location: ICU ICU02-1 Hospitalist Note 3116 called by nursing records supervisor to assist with arterial line. upon arrival, [...] Cosigner Signature (if applicable): CC: ~ Signed [facility] Work Phone: 1(549) 530-851809-17-2025 Radiology Diagnostic study [facility]09-17-2025 Consult note Author Wally Waddell [facility] Note Date/Time March 19, 2025 1:27am [facility] Medical Records Department [address] [place] [address] Consultation - Latin American Studies Professor 03/19/25 0121 MR#: [id number] Acct: [id number] Name: VIRIDIANA WOOISIDORO Dowling Rep #:[id number] : 1950 75 From: Wally mueller MD PCP: Dr. Kamar Grimes MD Status:ADM IN Location: ICU ICU02-1 HPI Consult Data Date of Consult: 03/19/25 HPI Narrative HPI Narrative: 75-year-old female with a history of restless leg syndrome, hypertension, depression, hypertension presented [facility] ED 03/18/2025 due to altered mental status. She had a recent CTA w/ a Infrarenal AAA and repeat CTA showed no rupture, no obvious PE. She was intubated and started on vasopressors and broad abx for ? Septic shock. [facility] Medical History Infection and inflammatory reaction due [...] / Sodium Chloride CONT INF 10 mcg/min .[id number] KACEY 18.8 mls/hr Titration Protocol 5 MCG/MIN [...] mls @ 15 mls/hr 03/18/25 21:14 IV .[id number] PRN Saline Flush Sodium Chloride 250 mls @ 15 mls/hr 03/18/25 21:14 IV .[id number] PRN Additional IVPB Infusion Sodium Chloride 1,000 mls @ 1 mls/hr 03/18/25 21:14 IV .Q48H PRN Saline Flush Vancomycin HCl 1,250 mg/ 275 mls @ 167 mls/hr 03/19/25 21:30 Sodium Chloride IV Q24H [facility] Propofol 1,000 mg in 100 mls @ [...] Due [facility] 03/20/25 22:00 DAILY [facility] Physical Exam Vital Signs/Image Vital Signs/Narrative: Vital [...] 84.3 H, Lymph % (Auto) 7.4 L, [place] % (Auto) 7.0, Eos % (Auto) 0.0, [...] Clarity Clear, Urine pH 6.0, Ur Specific [place] 1.015, Urine Protein 30 H, Urine Glucose [...] IMPRESSION: No acute intracranial process. Reading Location: [id number] Chest X-Ray 03/18/25 15:35 IMPRESSION: Bilateral low lung volumes. No acute cardiopulmonary abnormality. Reading Location: [id number]-FA Chest X-Ray 03/18/25 17:44 IMPRESSION: 1. Endotracheal tube tip 3.1 cm above the abigail. 2. Enteric tube appropriately positioned terminating in the upper midabdomen. 3. Cardiomegaly, with increased vascular markings and possible interstitial edema. Reading Location: [facility] KUB X-Ray 03/18/25 18:00 IMPRESSION: Enteric tube terminates appropriately within the stomach. Persistent IV contrast opacifying the kidneys suggesting medical renal disease with delayed excretion. Reading Location: [facility] Abdomen/Pelvis CTA 03/18/25 18:50 IMPRESSION: 1. No acute or active inflammatory intra-abdominal pathology. 2. Stable saccular infrarenal abdominal aortic aneurysm measuring up to 4.4 cm. 3. Indeterminate 15 mm right adrenal gland nodule, probably adenoma. Suggest follow-up dedicated adrenal CT or MRI in 12 months to assess stability. Reading Location: [facility] Chest X-Ray 03/18/25 19:02 IMPRESSION: 1. New right subclavian approach central venous catheter, tip at the lower SVC. 2. Stable positioning of the endotracheal and enteric tubes. 3. Unchanged lung aeration. Stable cardiomegaly. Reading Location: [facility] Assessment and Plan . Assessment [...] applicable): CC: Dr. Kamar Grimes MD~ Signed [facility] Work Phone: 1(343) 649-215409-16-2025 History and physical note Author Emili Lee [facility] Note Date/Time March 18, 2025 8:45pm [facility] Medical Records Department [address] [place] [address] H&P Exam - Hospitalist 03/18/251937 MR#: [id number] Acct: [id number] Name: OSCAR WOO Rep #:[id number] : 1950 75 From: Emili Lee MD PCP: Dr. Kamar Grimes MD Status:ADM IN Location: ICU ICU02-1 HPI - General General Date of Admission: 03/18/25 Date of Service: 03/18/25 Chief Complaint: Altered mental status HPI Narrative OSCAR WOO, is a 75-year-old female with a history of restless leg syndrome, hypertension, depression, hypertension presented [facility] ED 03/18/2025 due to altered mental [...] and had not been having any vomiting. [facility] Medical History Infection and inflammatory reaction due [...] 84.3 H, Lymph % (Auto) 7.4 L, Dolores % (Auto) 7.0, Eos % (Auto) 0.0, [...] Clarity Clear, Urine pH 6.0, Ur Specific [place] 1.015, Urine Protein 30 H, Urine Glucose [...] IMPRESSION: No acute intracranial process. Reading Location: [id number] Chest X-Ray 03/18/25 15:35 IMPRESSION: Bilateral low lung volumes. No acute cardiopulmonary abnormality. Reading Location: GIX-QHJPR-AS Chest X-Ray 03/18/25 17:44 IMPRESSION: 1. Endotracheal [...] renal disease with delayed excretion. Reading Location: CBH-GGVMPVOO-DE Assessment & Plan Assessment/Plan (1) Shock: (2) [...] started -Patient be admitted to the ICU, telemetry tech consulted - Patient received 1 L of IV fluids, not given further IV fluids due to recent diagnosis of heart failure and chest x-ray coronary congestion # Acute hypoxic hypercapnic respiratory failure -Patient came in altered, developed progressive hypoxia and was found to be hypercapnic, ultimately required intubation and sedation -Admit to ICU -Workup as above -Scheduled nebs -Will check proBNP - Latin American Studies Professor consult #Acute renal failure - Creatinine was [...] Vasopressors started Charges/Coding Visit Charges Inpatient E&M: 10586 Init Hosp L3 03/18/252044 <Electronically signed by Emili Lee MD> Cosigner Signature (if applicable): CC: Dr. Kamar Grimes MD; Dr. Emili Lee MD~ Signed [facility] Work Phone: 1(217) 566-926909-16-2025 Evaluation note* Diagnosis Onset Date Resolution Status Admit Date Acute dehydration acute [facility] 2024 7:38pm Acute hypotension acute [facility] 2024 7:38pm Acute kidney injury acute [facility] 2024 7:38pm Acute respiratory failure with hypoxia and hypercapnia acute Sep tember 2024 7:38pm Bacteria in urine acute [facility] 2024 7:38pm Debility acute March 7:38pm Hypothermia acute March 7:38pm Shock acute March 7:38pm Acute on chronic respiratory failure with hypoxia and hypercapnia chronic March 18, 2025 7:38pm [facility] Work Phone: 1(846) 158-654809-16-2025 Evaluation note* Diagnosis Onset Date Resolution Status Admit Date Acute dehydration acute [facility] 2024 7:38pm Acute hypotension acute [facility] 2024 7:38pm Acute kidney injury acute [facility] 2024 7:38pm Acute respiratory failure with hypoxia and hypercapnia acute [facility] 2024 7:38pm Bacteria in urine acute [facility] 2024 7:38pm Debility acute March 7:38pm Essential (primary) hypertension acute March 18, 2025 7:38pm Hypothermia acute March 7:38pm Infection of prosthetic shoulder joint acute March 18, 2025 7:38pm Saccular aneurysm acute [facility] 2024 7:38pm Shock acute March 7:38pm Acute on chronic respiratory failure with hypoxia and hypercapnia chronic March 18, 2025 7:38pm [facility] Work Phone: [phone] Evaluation note* Diagnosis Onset Date Resolution Status Admit Date Saccular aneurysm acute [facility] 2024 7:38pm Acute dehydration resolved [facility] 2024 7:38pm Acute hypotension resolved [facility] 2024 7:38pm Acute kidney injury resolved [facility] 2024 7:38pm Acute on chronic respiratory failure with hypoxia and hypercapnia resolved March 18, 2025 7:38pm Acute respiratory failure with hypoxia and hypercapnia resolved Mar 7:38pm Bacteria in urine resolved [facility] 2024 7:38pm Hypothermia resolved March 7:38pm [...] ctober 2024 5:23pm Hyponatremia resolved April 5:23pm [facility] Work Phone: 1(220) 154-942809-16-2025 History and physical note [facility] Medical Records Department [address] [place] [address] H&P Exam - Hospitalist 03/18/251937 MR#: [id number] Acct: [id number] Name: OSCAR WOO Rep #:[id number] : 1950 75 From: Emili Lee MD PCP: Dr. Kamar Grimes MD Status:ADM IN Location: ICU ICU02-1 HPI - General General Date of Admission: 03/18/25 Date of Service: 03/18/25 Chief Complaint: Altered mental status HPI Narrative OSCAR WOO, is a 75-year-old female with a history of restless leg syndrome, hypertension, depression, hypertension presented [facility] ED 03/18/2025 due to altered mental [...] and had not been having any vomiting. [facility] Medical History Infection and inflammatory reaction due [...] 84.3 H, Lymph % (Auto) 7.4 L, [place] % (Auto) 7.0, Eos % (Auto) 0.0, [...] Clarity Clear, Urine pH 6.0, Ur Specific [place] 1.015, Urine Protein 30 H, Urine Glucose [...] IMPRESSION: No acute intracranial process. Reading Location: [facility] Chest X-Ray 03/18/25 15:35 IMPRESSION: Bilateral low lung volumes. No acute cardiopulmonary abnormality. Reading Location: HDZ-PXTHV-GB Chest X-Ray 03/18/25 17:44 IMPRESSION: 1. Endotracheal [...] renal disease with delayed excretion. Reading Location: ABO-[id number] Assessment & Plan Assessment/Plan (1) Shock: (2) [...] started -Patient be admitted to the ICU, telemetry tech consulted - Patient received 1 L of IV fluids, not given further IV fluids due to recent diagnosis of heart failure and chest x-ray coronary congestion # Acute hypoxic hypercapnic respiratory failure -Patient came in altered, developed progressive hypoxia and was found to be hypercapnic, ultimatelyrequired intubation and sedation -Admit to ICU -Workup as above -Scheduled nebs -Will check proBNP - Latin American Studies Professor consult #Acute renal failure - Creatinine was [...] Vasopressors started Charges/Coding Visit Charges Inpatient E&M: 70537 Init Hosp L3 03/18/252044 Cosigner Signature (if applicable): CC: Dr. Kamar Grimes MD; Dr. Emili Lee MD~ Signed [facility]09-16-2025 Radiology Diagnostic study note [facility] Imaging Services [address] [place], [place] [address] CTA Abd/Pelvis W/WO Contrast MR#: [id number] Acct: [id number] Name: OSCAR WOO Rep #: [id number] : 1950 F 75 From: Kamran Leonard MD PCP: Dr. Kamar Grimes MD Status: ADM IN Study:CTA Abd/Pelvis W/WO Contrast Date of Ex am: 03/18/25 Exam# [id number] Ordering Dr: Mai Levy MD PROCEDURE: CTA [...] 12 months to assess stability. Reading Location: [facility] CC: Dr. Kamar Grimes MD; Dr. Deion Levy MD ~ Clearance Center Manager: Signed [facility]09-16-2025 Radiology Diagnostic study note [facility] Imaging Services [address] [place] [address] Chest 1 View (Portable) MR#: [id number] Acct: [id number] Name: OSCAR WOO Rep #: [id number] : 1950 F 75 From: Kamran Leonard MD PCP: Dr. Kamar Grimes MD Status: ADM IN Study:Chest 1 View (Portable) Date of Exam: 03/18/25 Exam# [id number] Ordering Dr: Mai Levy MD PROCEDURE: CHEST [...] Unchanged lung aeration. Stable cardiomegaly. Reading Location: [id number]-[id number] CC: Dr. Kamar Grimes MD; Dr. Deion Levy MD ~ Clearance Center Manager: Signed [facility]09-16-2025 Radiology Diagnostic study note [facility] Imaging Services [address] [place] [address] Chest 1 View (Portable) MR#: [id number] Acct: [id number] Name: OSCAR WOO Rep #: [id number] : 1950 F 75 From: Kamran Leonard MD PCP: Dr. Kamar Grimes MD Status: REG ER Study:Chest 1 View (Portable) Date of Exam: 03/18/25 Exam# [id number] Ordering Dr: Mai Levy MD PROCEDURE: CHEST [...] markings and possible interstitial edema. Reading Location: ICG-[id number]-WX CC: Dr. Kamar Grimes MD; Dr. Deion Levy MD ~ Clearance Center Manager: Signed [facility]09-16-2025 Radiology Diagnostic study note [facility] Imaging Services [address] [place] [address] Abdomen Single View (Portable) MR#: [id number] Acct: [id number] Name: OSCAR WOO Rep #: [id number] : 1950 F 75 From: Kamran Leonard MD PCP: Dr. Kamar Grimes MD Status: REG ER Study:Abdomen Single View (Portable) Date of Exam: 03/18/25 Exam# [id number] Ordering Dr: Mai Levy MD PROCEDURE: ABDOMEN [...] renal disease with delayed excretion. Reading Location: [facility] CC: Dr. Kamar Grimes MD; Dr. Deion Levy MD ~ Clearance Center Manager: Signed [facility]09-16-2025 Radiology Diagnostic study note [facility] Imaging Services [address] [place], [place] [address] Chest PA and Lateral MR#: [id number] Acct: [id number] Name: OSCAR WOO Rep #: [id number] : 1950 F 75 From: Jaenlle Mares MD PCP: Dr. Kamar Grimes MD Status: REG ER Study:Chest PA and Lateral Date of Exam: 03/18/25 Exam# [id number] Ordering Dr: Mai Levy MD PROCEDURE: CHEST [...] volumes. No acute cardiopulmonary abnormality. Reading Location: MNH-IQQEC-IL CC: Dr. Kamar Grimes MD; Dr. Deion Levy MD ~ Clearance Center Manager: Signed [facility]09-16-2025 Radiology Diagnostic study note [facility] Imaging Services [address] [place] [address] [id number] Brain/Head without Contrast MR#: [id number] Acct: [id number] Name: OSCAR WOO Rep #: [id number] : 1950 F 75 From: Jennifer Shin MD PCP: Dr. Kamar Grimes MD Status: REG ER Study:Brain/Head without Contrast Date of Exa m: 03/18/25 Exam# [id number] Ordering Dr: Mai Levy MD PROCEDURE: BRAIN/HEAD [...] IMPRESSION: No acute intracranial process. Reading Location: OSO-GRJXSH-GD CC: Dr. Kamar Grimes MD; Dr. Deion Levy MD ~ Clearance Center Manager: Signed [facility]09-15-2025 [facility] Rad[facility] Diagnostic study note [facility] Imaging Services [address] [place] [address] Chest PA and Lateral MR#: [id number] Acct: [id number] Name: OSCAR WOO Rep #: [id number] : 1950 F 75 From: Kaushal Orozco DO PCP: Dr. Kamar Grimes MD Status: REG CLI Study:Chest PA and Lateral Date of Exam: 02/10/25 Exam# [id number] Ordering Dr: Jennifer Grimes MD PROCEDURE: CHEST [...] compared to the prior exam. Reading Location: IWD-PDRLP-ND CC: Dr. Kamar Grimes MD ~ Clearance Center Manager: Signed [facility]04-08-2025 Hospital Discharge instructions Additional Instructions Discharge home 10/08/2024, IV ATB thru 10/25/2024, [facility] PT/SN.[facility] Work Phone: 1(799) 764-556104-07-2025 Progress note Author Sixto Andrade [facility] Note Date/Time October 07, 2024 7:23 pm [facility] Medical Records Department [address] [place] [address] Progress Note - Infect Disease 10/07/241920 MR#: [id number] Acct: [id number] Name: OSCAR WOO Rep #:[id number] : 1950 74 From: Sixto calhoun MD PCP: Dr. Kamar Grimes MD Status:ADM IN Location: [place] [address] Physical Exam Narrative New bilat eye redness [...] Cosigner Signature (if applicable): CC: ~ Signed [facility] Work Phone: 1(789) 407-934604-07-2025 Progress note [facility] Medical Records Department [address] [place] [address] Progress Note - Infect Disease 10/07/241920 MR#: [id number] Acct: [id number] Name: OSCAR WOO Rep #:[id number] : 1950 74 From: Sixto calhoun MD PCP: Dr. Kamar Grimes MD Status:ADM IN Location: [place] [address] Physical Exam Narrative New bilat eye redness [...] Cosigner Signature (if applicable): CC: ~ Signed [facility]04-07-2025 Consult note Author Ashley Sue [facility] Note Date/Time October 07, 2024 2:14 pm [facility] Medical Records Department [address] [place] [address] Pharmacokinetic/Renal -Consult 09/29/24 1013 MR#: [id number] Acct: [id number] Name: OSCAR WOO Rep #:[id number] : 1950 74 From: Ashley Sue PCP: Dr. Kamar Grimes MD Status:ADM IN [facility] [...] Date Sixto Andrade MD CC: ~ Signed [facility] Work Phone: 1(407) [phone] Consult note Author Tino Law [facility] Note Date/Time October 07, 2024 2:14 pm [facility] Medical Records Department [address] [place] [address] Pharmacokinetic/Renal -Consult 10/01/24 09 MR#: [id number] Acct: [id number] Name: OSCAR WOO Rep #:[id number] : 1950 74 From: Tino Law PCP: Dr. Kamar Grimes MD Status:ADM IN Location: [place] [address] Consult [facility]iotic Management Pharmacy has been consulted [...] __ Sixto Andrade MD CC: ~ Signed [facility] Work Phone: 1(427) 484-890504-07-2025 Consult note [facility] Medical Records Department [address] [facility] [place] [address] Pharmacokinetic/Renal -Consult 09/29/24 1013 MR#: [id number] Acct: [id number] Name: OSCAR WOO Rep #:[id number] : 1950 74 From: Ashley Sue PCP: Dr. Kamar Grimes MD Status:ADM IN Location: [place] [address] Consult [facility]iotic Management Pharmacy has been consulted [...] Date Sixto Andrade MD CC: ~ Signed [facility]04-07-2025 Consult note [facility] Medical Records Department [address] [place] [address] Pharmacokinetic/Renal -Consult 10/01/24 09 MR#: [id number] Acct: [id number] Name: OSCAR WOO Rep #:[id number] : 1950 74 From: Tino Law PCP: Dr. Kamar Grimes MD Status:ADM IN Y Location: [place] [address] Consult [facility]iotic Management Pharmacy has been consulted [...] __ Sixto Andrade MD CC: ~ Signed [facility]04-06-2025 Consult note Author Jonh Khalil [facility] Note Date/Time October 06, 2024 12:5 3pm [facility] Medical Records Department [address] [place] [address] Pharmacokinetic/Renal -Consult 10/06/24 0956 MR#: [id number] Acct: [id number] Name: OSCAR WOO Rep #:[id number] : 1950 74 From: Jonh kurtz PCP: Dr. Kamar Grimes MD Status:ADM IN Location: [place] [address] Consult [facility]iotic Management Pharmacy has been consulted [...] Date Rodrigo Sanches MD CC: ~ Signed [facility] Work Phone: 1(679) 343-339804-06-2025 Consult note [facility] Medical Records Department [address] [place] [address] Pharmacokinetic/Renal -Consult 10/06/24 0956 MR#: [id number] Acct: [id number] Name: OSCAR WOO Rep #:[id number] : 1950 74 From: Jonh kurtz PCP: Dr. Kamar Grimes MD Status:ADM IN Y Location: [place] [address] Consult [facility]iotic Management Pharmacy has been consulted [...] Date Rodrigo Sanches MD CC: ~ Signed [facility]04-01-2025 Discharge summary Author Rodrigo Myron [facility] Note Date/Time October 01, 2024 8:03 pm [facility] Medical Records Department [address] [place] [address] Discharge Summary 10/01/241955 MR#: [id number] Acct: [id number] Name: OSCAR WOO Rep #:[id number] : 1950 74 From: Rodrigo Sanches MD PCP: Dr. Kamar Grimes MD Status:ADM IN Location: [place] [address] Providers Date of Admission: 09/18/24 Primary Care [...] Discharge home 10/08/2024, IV ATB thru 10/25/2024, [facility] PT/SN. Physical Exam Const alert General [...] Discharge home 10/08/2024, IV ATB thru 10/25/2024, [facility] PT/SN. Please Follow Up With: Fahad [...] Discharge home 10/08/2024, IV ATB thru 10/25/2024, [facility] PT/SN. Discharge Orders/Prescriptions Prescriptions: Continued losartan [...] cbc, vanc trough, and esr. Fax to [phone]. Routine picc care per protocol. rifampin 300 [...] Grimes MD; Dr. Rodrigo Sanches MD~ Signed [facility] Work Phone: 1(616) 312-119404-01-2025 Discharge summary [facility] Medical Records Department [address] [place] [address] Discharge Summary 10/01/241955 MR#: [id number] Acct: [id number] Name: OSCAR WOO Rep #:[id number] : 1950 74 From: Rodrigo Sanches MD PCP: Dr. Kamar Grimes MD Status:ADM IN Location: [place] [address] Providers Date of Admission: 09/18/24 Primary Care [...] Discharge home 10/08/2024, [facility]. Physical Exam Const alert General Appearance: [...] Discharge home 10/08/2024, IV ATB thru 10/25/2024, [facility] PT/SN. Please Follow Up With: Fahad [...] Discharge home 10/08/2024, IV ATB thru 10/25/2024, [facility] PT/SN. Discharge Orders/Prescriptions Prescriptions: Continued losartan [...] cbc, vanc trough, and esr. Fax to [phone]. Routine picc care per protocol. rifampin 300 mg Capsule 300 mg PO BID 39 Days Qty: 78 0RF Referrals / Follow Up: Kamar Grimse MD [Primary Care Provider] - Fahad Cavanaugh MD [Med Staff - Active Staff] - 10/25/24 10:30 am Disposition Disposition (needs filled in before D/C Order can be placed): Home Health Service 10/01/242002 Cosigner Signature (if applicable): CC: Dr. Kamar Grimes MD; Dr. Rodrigo Sanches MD~ Signed [facility]04-01-2025 [facility] Consult note Author Tino Law [facility] Note Date/Time September 27, 2024 9:2 0am [facility] Medical Records Department [address] [place] [address] Pharmacokinetic/Renal -Consult 09/24/24 0947 MR#: [id number] Acct: [id number] Name: ABELOSCAR Nitesh Rep #:[id number] : 1950 74 From: Tino Law PCP: Dr. Kamar Grimes MD Status:ADM IN Y Location: [place] [address] Consult Antibiotic Management Pharmacy has been consulted [...] Date Sixto Andrade MD CC: ~ Signed [facility] Work Phone: 1(570) 326-866403-28-2025 Consult note [facility] Medical Records Department [address] [place] [address] Pharmacokinetic/Renal -Consult 09/24/24 0947 MR#: [id number] Acct: [id number] Name: OSCAR WOO Rep #:[id number] : 1950 74 From: Tino Law PCP: Dr. Kamar Grimes MD Status:ADM IN Location: [place] [address] Consult Antibiotic Management Pharmacy has been consulted [...] Date Sixto Andrade MD CC: ~ Signed [facility]03-23-2025 Consult note Author Renee Zarate [facility] Note Date/Time September 22, 2024 11: 33[facility] Medical Records Department [address] [place] [address] Pharmacokinetic/Renal -Consult 09/22/24 1047 MR#: [id number] Acct: [id number] Name: OSCAR WOO Rep #:[id number] : 1950 74 From: Renee Zarate PCP: Dr. Kamar Grimes MD Status:ADM IN Location: [place] [address] Consult Antibiotic Management Pharmacy has been consulted [...] Date Rodrigo Sanches MD CC: ~ Signed [facility] Work Phone: 1(118) [phone] Consult note [facility] Medical Records Department [address] [place] [address] Pharmacokinetic/Renal -Consult 09/22/24 1047 MR#: [id number] Acct: [id number] Name: WOOOSCAR TORRES Rep #:[id number] : 1950 74 From: Renee Zarate PCP: Dr. Kamar Grimes MD Status:ADM IN Y Location: [place] [address] Consult Antibiotic Management Pharmacy has been consulted [...] Date Rodrigo Sanches MD CC: ~ Signed [facility]03-21-2025 Progress note [facility] Note Date/Time September 20, 2024 1:4 3pm [facility] Medical Records Department [address] [place] [address] Progress Note - Pharmacy 09/19/24 1427 MR#: [id number] Acct: [id number] Name: OSCAR WOO Rep #:[id number] : 1950 74 From: Renee Zarate PCP: Dr. Kamar Grimes MD Status:ADM IN Location: [place] [address] TCU RX Drug Regimen Review Subjective/Objective Subjective/Objective Subjective: 74 YOF admitted to TCU on 09/18/24 s/p hospitalization to [facility] for a left shoulder joint infection. [...] Tablet PO 10 mg QHS [facility] Administration Metoprolol Tartrate 25 mg 09/18/24 22:00 09/19/24 07:50 Metoprolol Tartrate 25 Mg Tablet PO 25 mg BID KACEY Administration Protocol Mirtazapine 15 mg 09/18/24 22:00 09/18/24 22:00 Mirtazapine 15 Mg Tablet PO 15 mg QHS [facility] Administration Oxycodone HCl 5 - 10 mg 09/18/24 13:16 09/19/24 07:49 Oxycodone 5 Mg Tablet PO 10 mg Q4H PRN PRN Administration Pain Score 4-10 Pramipexole Dihydrochloride 1 mg 09/18/24 22:00 09/18/24 22:00 Pramipexole Di-Hcl 1 Mg Tablet PO 1 mg QHS [facility] Administration Pramipexole Dihydrochloride 0.5 mg 09/18/24 17:00 09/18/24 16:52 Pramipexole Di-Hcl 0.5 Mg Tablet PO 0.5 mg DINNER [facility] Administration Rifampin 300 mg 09/18/24 22:00 09/19/24 [...] Due MC 09/20/24 09:30 DAILY [facility] Problem List Infection of prosthetic shoulder joint [...] Signature (if applicable): Date cc: ~* Signed [facility] Work Phone: 1(929) 331-664103-21-2025 Progress note Author Sixto Lupe [facility] Note Date/Time September 20, 2024 1:3 8pm [facility] Medical Records Department [address] [place] [address] Progress Note - Infect Disease 09/20/24 1336 MR#: [id number] Acct: [id number] Name: OSCAR WOO Rep #:[id number] : 1950 74 From: Sixto calhoun MD PCP: Dr. Kamar Grimes MD Status:ADM IN Location: [place] [address] Physical Exam Narrative Feeling better, shoulder improving, [...] course suppressive po abx. Will follow 09/20/24 1650 <Electronically signed by Sixto Andrade MD> Cosigner Signature (if applicable): CC: ~ Signed [facility] Work Phone: 1(503) 776-238303-21-2025 Consult note Author Jonh Khalil [facility] Note Date/Time September 20, 2024 1:2 6pm [facility] Medical Records Department [address] [place] [address] Pharmacokinetic/Renal -Consult 09/20/24 0902 MR#: [id number] Acct: [id number] Name: OSCAR WOO Rep #:[id number] : 1950 74 From: Jonh kurtz PCP: Dr. Kamar Grimes MD Status:ADM IN Location: [place] [address] Consult Antibiotic Management Pharmacy has been consulted [...] Date Rodrigo Sanches MD CC: ~ Signed [facility] Work Phone: 1([phone]) [phone] Progress note [facility] Medical Records Department [address] [place] [address] Progress Note - Pharmacy 09/19/24 1427 MR#: [id number] Acct: [id number] Name: OSCAR WOO Rep #:[id number] : 1950 74 From: Renee Zarate PCP: Dr. Kamar Grimes MD Status:ADM IN Location: [place] [address]-1 TCU RX Drug Regimen Review Subjective/Objective Subjective/Objective Subjective: 74 YOF admitted to TCU on 09/18/24 s/p hospitalization to [facility] for a left shoulder joint infection. [...] Due MC 09/20/24 09:30 DAILY [facility] Problem List Infection of prosthetic shoulder joint [...] Signature (if applicable): Date cc: ~* Signed [facility]03-21-2025 Progress note [facility] Medical Records Department [address] [facility] [place] [address] Progress Note - Infect Disease 09/20/24 1336 MR#: [id number] Acct: [id number] Name: OSCAR WOO Rep #:[id number] : 1950 74 From: Sixto calhoun MD PCP: Dr. Kamar Grimes MD Status:ADM IN Location: [facility] TCU06-1 Physical Exam Narrative Feeling better, shoulder [...] Cosigner Signature (if applicable): CC: ~ Signed [facility]03-21-2025 Consult note [facility] Medical Records Department [address] [place] [address] Pharmacokinetic/Renal -Consult 09/20/24 0902 MR#: [id number] Acct: [id number] Name: OSCAR WOO Rep #:[id number] : 1950 74 From: Jonh kurtz PCP: Dr. Kamar Grimes MD Status:ADM IN Location: [place] [address] Consult Antibiotic Management Pharmacy has been consulted [...] result of 10.7 so will increase dose [id number] IV q24h. Will check another trough before the 3rd dose. Pharmacy Service will continue to monitor and adjust dosing as required. Follow-Up Labs Follow-Up Labs: Trough: Vancomycin Date/Time Labs Ordered Labs to be done on [date and time ordered]: 09/22/24 08:30 09/20/24 0905 erg> Date _ Jonh Khalil 09/20/24 1326 D> Cosigner Signature (if applicable): Date Rodrigo Sanches MD CC: ~ [facility]03-20-2025 Progress note Author Sixto Andrade [facility] Note Date/Time September 19, 2024 7:5 9am [facility] Medical Records Department [address] [place] [address] Progress Note - Infect Disease 09/19/24 0757 MR#: [id number] Acct: [id number] Name: OSCAR WOO Rep #:[id number] : 1950 74 From: Sixto calhoun MD PCP: Dr. Kamar Grimes MD Status:ADM IN Location: [facility] TCU06-1 ID ID: Route of nutrition/ use [...] Cosigner Signature (if applicable): CC: ~ Signed [facility] Work Phone: 1(353) 631-717603-20-2025 Progress note [facility] Medical Records Department [address] [place] [address] Progress Note - Infect Disease 09/19/24756 MR#: [id number] Acct: [id number] Name: OSCAR WOO Rep #:[id number] : 1950 74 From: Sixto calhoun MD PCP: Dr. Kamar Grimes MD Status:ADM IN Location: [facility] TCU06-1 ID ID: Route of nutrition/ use [...] Cosigner Signature (if applicable): CC: ~ Signed [facility]03-19-2025 History and physical note Author Rodrigo Sanches [facility] Note Date/Time September 18, 2024 8:5 7pm [facility] Medical Records Department [address] [place] [address] History & Physical Exam 09/18/242035 MR#: [id number] Acct: [id number] Name: OSCAR WOO Rep #:[id number] : 1950 74 From: Rodrigo Sanches MD PCP: Dr. Kamar Grimes MD Status:ADM IN Location: [place] [address] HPI - General General Date of Admission: [...] intravenous antibiotics, prior to discharge home alone. [facility] Medical History MRSA (methicillin resistant staph aureus) [...] oral 80 mg (1.2 mL) PO TID FL N Gas #0 mL 09/17/24 Unknown Rx [...] 30mg daily, Mirtazapine 15mg qhs, stable chronic terminologist use, GDR not recommended. * Dry eyes [...] Grimes MD; Dr. Rodrigo Sanches MD~ Signed [facility] Work Phone: 1(644) 198-995303-19-2025 History and physical note [facility] Medical Records Department [address] [place] [address] History & Physical Exam 09/18/242035 MR#: [id number] Acct: [id number] Name: OSCAR WOO Rep #:[id number] : 1950 74 From: Rodrigo Sanches MD PCP: Dr. Kamar Grimes MD Status:ADM IN Location: [place] [address] HPI - General General Date of Admission: [...] intravenous antibiotics, prior to discharge home alone. [facility] Medical History MRSA (methicillin resistant staph aureus) [...] oral 80 mg (1.2 mL) PO TID FL N Gas #0 mL 09/17/24 Unknown Rx [...] 30mg daily, Mirtazapine 15mg qhs, stable chronic terminologist use, GDR not recommended. * Dry eyes [...] Grimes MD; Dr. Rodrigo Sanches MD~ Signed [facility]03-19-2025 [facility]03-19-2025 [facility]03-19-2025 Consult note [facility] Medical Records Department [address] [place] [address] Counseling Note - Pharmacy 09/18/24 1009 MR#: [id number] Acct: [id number] Name: OSCAR WOO Rep #:[id number] : 1950 74 From: Ashley Sue PCP: Dr. Kamar Grimes MD Status:ADM IN Location: [address] Med Reconciliation Pharmacy Service has performed [...] Signature (if applicable): Date CC: ~ Signed [facility]03-19-2025 Consult note Author Ashley Sue [facility] Note Date/Time September 18, 2024 12: 30pm [facility] Medical Records Department [address] [place] [address] Counseling Note - Pharmacy 09/18/24 1009 MR#: [id number] Acct: [id number] Name: OSCAR WOO Rep #:[id number] : 1950 74 From: Ashley Sue PCP: Dr. Kamar Grimes MD Status:ADM IN Location: [facility] TU558-6 Pharmacy ID Med Reconciliation Pharmacy Service has performed discharge [...] Signature (if applicable): Date CC: ~ Signed [facility] Work Phone: 1(948) 831-801503-19-2025 Progress note Author Jamie Jiang [facility] Note Date/Time September 18, 2024 9:1 1am [facility] Medical Records Department [address] [place] [address] Progress Note - Hospitalist 09/18/24 0908 MR#: [id number] Acct: [id number] Name: OSCAR WOO Rep #:[id number] : 1950 74 From: Jamie Jiang DO PCP: Dr. Kamar Grimes MD Status:ADM IN Location: [facility] FK981-3 Reason for Visit Reason for Visit: Diagnoses [...] 50 minutes Charges/Coding Visit Charges Inpatient E&M: 13880 Subs Hosp L3 09/18/24 0911 <Electronically signed by Jamie Jiang DO> Cosigner Signature (if applicable): CC: ~ Signed [facility] Work Phone: 1(928) 249-720303-19-2025 Progress note Author Zhanna Ivy [facility] Note Date/Time September 18, 2024 7:5 5am [facility] Medical Records Department [address] [place] [address] Progress Note - Orthopedic 09/18/24 0748 MR#: [id number] Acct: [id number] Name: OSCAR WOO Rep #:[id number] : 1950 74 From: Zhanna CASTILLO PCP: Dr. Kamar Grimes MD Status:ADM IN Location: [facility] LY459-6 Subjective Subjective Patient was lying comfortably in bed. Patient was very excited that she got accepted to [facility]CU and patient was eager to [...] will be going to the TCU at [facility]. Patient received acceptance yesterday but a [...] other internal joint prosthesis, initial encounter: 09/18/24 3295 <Electronically signed by Zhanna CASTILLO> Yanick Signature (if applicable): CC: ~ Signed [facility] Work Phone: 1(497) 518-577403-19-2025 Consult note Author Tete Kaminski [facility] Note Date/Time September 18, 2024 [facility] [address] [place] [address] Pharmacokinetic/Renal -Consult 09/18/24 0744 MR#: [id number] Acct: [id number] Name: OSCAR WOO Rep #:[id number] : 1950 74 From: Tete Loving PCP: Dr. Kamar Grimes MD Status:ADM IN Location: [place] 922463-1 Consult Antibiotic Management Pharmacy has been consulted [...] and time ordered]: 09/20/24 @ 0700 09/18/24 0490 <Electronically signed by Tete Kaminski> Date _ Tete Kaminski Cosigner Signature (if applicable): Date CC: ~ Signed [facility] Work Phone: 1(327) 572-474103-19-2025 Progress note [facility] Medical Records Department [facility] [address] [address] Progress Note - Hospitalist 09/18/24 09 MR#: [id number] Acct: [id number] Name: OSCAR WOO Rep #:[id number] : 1950 74 From: Jamie Jiang DO PCP: Dr. Kamar Grimes MD Status:ADM IN Location: [place] [address] Reason for Visit Reason for Visit: Diagnoses [...] [facility] blood pressure medicines may need [...] 50 minutes Charges/Coding Visit Charges Inpatient E&M: 21203 [facility] Hosp L3 09/18/24 0911 Cosigner Signature (if applicable): CC: ~ Signed [facility]03-19-2025 Progress note [facility] Medical Records Department [address] [place] [address] Progress Note - Orthopedic 09/18/24 0748 MR#: [id number] Acct: [id number] Name: OSCAR WOO Rep #:[id number] : 1950 74 From: Zhanna CASTILLO PCP: Dr. Kamar Grimes MD Status:ADM IN Location: [facility] LZ280-7 Subjective Subjective Patient was lying comfortably in bed. Patient was very excited that she got accepted to [facility] and patient was eager to [...] will be going to the TCU at [facility]. Patient received acceptance yesterday but a bed was not available until today 09/18/2024. Appreciate recommendations from medicine and case management for safe discharge planning. Patient will follow-up per postoperative instructions. Reverse total shoulder protocol was reviewed with patient today. Patient has a 2-week follow-up at our office. Patient will begin outpatient physical therapy following her 2-week visit at [facility]. Patient was encouraged to call with any questions, concerns, new problems. (2) Infection and inflammatory reaction due to other internal joint prosthesis, initial encounter: 09/18/24 5157 Cosigner Signature (if applicable): CC: ~ Signed [facility]03-19-2025 Consult note [facility] Medical Records Department [address] [place] [address] Pharmacokinetic/Renal -Consult 09/18/24 0744 MR#: [id number] Acct: [id number] Name: OSCAR WOO Rep #:[id number] : 1950 74 From: Tete Loving PCP: Dr. Kamar Grimes MD Status:ADM IN Location: [facility] JF177-7 Consult Antibiotic Management Pharmacy has been consulted [...] Signature (if applicable): Date CC: ~ Signed [facility]03-18-2025 Discharge summary Author Jamie Jiang [facility] Note Date/Time September 17, 2024 5:2 7pm [facility] Medical Records Department [address] [place] [address] Transfer to [facility] MR#: [id number] Acct: [id number] Name: OSCAR WOO Rep #:[id number] : 1950 74 From: Jamie Jiang DO PCP: Dr. Kamar Grimes MD Status:ADM IN Certification of patient admission REQUIRED AT TIME OF ADMISSION. I CERTIFY THAT POST-HOSPITAL ECF SERVICES ARE REQUIRED TO BE GIVEN ON AN IN-PATIENT BASIS BECAUSE OF THE ABOVE NAMED PATIENT'S NEED FOR ALF CARE ON A CONTINUING BASIS FOR THE [...] cbc, vanc trough, and esr. Fax to [phone]. Routine picc care per protocol. rifampin 300 [...] in before D/C Order can be placed): [facility] 09/17/247 <Electronically signed by Jamie Jiang DO> Cosigner Signature (if applicable): CC: Dr. Kamar Grimes MD; Dr. Jamie Jiang DO; Dr. Emili Lee MD; Dr. Sixto Andrade MD ~ [facility] Work Phone: 1(430) 484-448003-18-2025 Progress note Author Jamie Jiang [facility] Note Date/Time September 17, 2024 5:1 3pm [facility] Medical Records Department [address] [place] [address] Progress Note - Hospitalist 09/17/24 1709 MR#: [id number] Acct: [id number] Name: OSCAR WOO Rep #:[id number] : 1950 74 From: Jamie Jiang DO PCP: Dr. Kamar Grimes MD Status:ADM IN Location: [facility] DU952-6 Reason for Visit Reason for Visit: Diagnoses [...] a bed available for her in TCU [facility] care tomorrow. Patient had some gas [...] 35 minutes Charges/Coding Visit Charges Inpatient E&M: 18654 Subs Hosp L2 09/17/24 1713 <Electronically signed by Jamie Jiang DO> Cosigner Signature (if applicable): CC: ~ Signed [facility] Work Phone: 1(274) 105-723903-18-2025 Discharge summary [facility] Medical Records Department [address] [place] [address] Transfer to [facility] MR#: [id number] Acct: [id number] Name: OSCAR WOO Rep #:[id number] : 1950 74 From: Jamie Jiang DO PCP: Dr. Kamar Grimes MD Status:ADM IN Certification of patient admission REQUIRED AT TIME OF ADMISSION. I CERTIFY THAT POST-HOSPITAL ECF SERVICES ARE REQUIRED TO BE GIVEN ON AN IN-PATIENT BASIS BECAUSE OF THE ABOVE NAMED PATIENT'S NEED FOR ALF CARE ON A CONTINUING BASIS FOR THE [...] cbc, vanc trough, and esr. Fax to [phone]. Routine picc care per protocol. rifampin 300 [...] in before D/C Order can be placed): [facility] 09/17/24 1727 Cosigner Signature (if applicable): CC: Dr. Kamar Grimes MD; Dr. Jamie Jiang DO; Dr. Emili Lee MD; Dr. Sixto Andrade MD ~ [facility]03-18-2025 Progress note [facility] Medical Records Department [address] [place] [address] Progress Note - Hospitalist 09/17/24 1709 MR#: [id number] Acct: [id number] Name: OSCAR WOO Rep #:[id number] : 1950 74 From: Jamie Jiang DO PCP: Dr. Kamar Grimes MD Status:ADM IN Location: [place] [address] Reason for Visit Reason for Visit: Diagnoses [...] [facility] Patient had some gas pains [...] 35 minutes Charges/Coding Visit Charges Inpatient E&M: 08896 Subs Hosp L2 09/17/24 1713 Cosigner Signature (if applicable): CC: ~ Signed [facility]03-18-2025 Progress note Author Zhanna Ivy [facility] Note Date/Time September 17, 2024 1:0 2pm [facility] Medical Records Department [address] [place] [address] Progress Note - Orthopedic 09/17/24 1242 MR#: [id number] Acct: [id number] Name: OSCAR WOO Rep #:[id number] : 1950 74 From: Zhanna CASTILLO PCP: Dr. Kamar Grimes MD Status:ADM IN Location: [facility] KN981-8 Subjective Subjective Patient appears to be comfortable [...] Yanick Signature (if applicable): cc: ~* Signed [facility] Work Phone: 1(794) 670-265603-18-2025 Progress note [facility] Medical Records Department [address] [place] [address] Progress Note - Orthopedic 09/17/24 1242 MR#: [id number] Acct: [id number] Name: OSCAR WOO Rep #:[id number] : 1950 74 From: Zhanna CASTILLO PCP: Dr. Kamar Grimes MD Status:ADM IN Location: [facility] KH158-5 Subjective Subjective Patient appears to be comfortable [...] Cosigner Signature (if applicable): cc: ~* Signed [facility]03-18-2025 Progress note Author Sixto Andrade [facility] Note Date/Time September 17, 2024 10: 04am [facility] Medical Records Department [address] [place] [address] Progress Note - Infect Disease 09/17/24 1003 MR#: [id number] Acct: [id number] Name: OSCAR WOO Rep #:[id number] : 1950 74 From: Sixto calhoun MD PCP: Dr. Kamar Grimes MD Status:ADM IN Location: [facility] RT250-7 Physical Exam Narrative Feeling ok. One episode [...] diarrhea chronically, cdiff sent. Will follow, d/w window caser 09/17/24 1004 <Electronically signed by Sixto Andrade MD> Cosigner Signature (if applicable): CC: ~ Signed [facility] Work Phone: 1(145) 548-510803-18-2025 Progress note [facility] Medical Records Department [address] [place] [address] Progress Note - Infect Disease 09/17/24 1003 MR#: [id number] Acct: [id number] Name: OSCAR WOO Rep #:[id number] : 1950 74 From: Sixto calhoun MD PCP: Dr. Kamar Grimes MD Status:ADM IN Location: [facility] CK766-0 Physical Exam Narrative Feeling ok. One episode [...] diarrhea chronically, cdiff sent. Will follow, d/w window caser 09/17/24 1004 Cosigner Signature (if applicable): CC: ~ Signed [facility]03-17-2025 Progress note Author Claire Mayorga [facility] Note Date/Time September 16, 2024 9:5 7pm [facility] Medical Records Department [address] [place] [address] Progress Note - Hospitalist 09/16/242156 MR#: [id number] Acct: [id number] Name: OSCAR WOO Rep #:[id number] : 1950 74 From: Claire Mayorga MD PCP: Dr. Kamar Grimes MD Status:ADM IN Location: [place] [address] Hospitalist Note Patient with onset diarrhea, several episodes per staff. On abx therapy for several days with ID following. Suspect likely abx related but to be cautious will obtain cdiff and if negative will have loperamide PRN. 09/16/242156 <Electronically signed by Claire Mayorga MD> Cosigner Signature (if applicable): CC: ~ Signed [facility] Work Phone: 1(804) 762-900103-17-2025 Progress note [facility] Medical Records Department [address] [place] [address] Progress Note - Hospitalist 09/16/242156 MR#: [id number] Acct: [id number] Name: OSCAR WOO Rep #:[id number] : 1950 74 From: Claire Mayorga MD PCP: Dr. Kamar Grimes MD Status:ADM IN Location: [place] [address] Hospitalist Note Patient with onset diarrhea, several episodes per staff. On abx therapy for several days with ID following. Suspect likely abx related but to be cautious will obtain cdiff and if negative will have loperamide PRN. 09/16/242156 Cosigner Signature (if applicable): CC: ~ Signed [facility]03-17-2025 Progress note Author Jamie [facility] Note Date/Time September 16, 2024 4:[address] [place] [address] System Medical Records Department [address] [facility] [place] [address] Progress Note - Hospitalist 09/16/24 160 MR#: [id number] Acct: [id number] Name: OSCAR WOO Rep #:[id number] : 1950 74 From: Jamie Jiang DO PCP: Dr. Kamar Grimes MD Status:ADM IN Location: [place] [address] Reason for Visit Reason for Visit: Diagnoses [...] to go to a rehab facility or senior living facility. Objective Data Objective Data Vital Signs: [...] 76.9 H, Lymph % (Auto) 11.6 L, Dolores % (Auto) 7.0, Eos % (Auto) 3.2, [...] 35 minutes Charges/Coding Visit Charges Inpatient E&M: 15376 Subs Hosp L2 09/16/24 1611 <Electronically signed by Jamie Jiang DO> Cosigner Signature (if applicable): CC: ~ Signed [facility] Work Phone: 1(708) [phone] Consult note Author Sixto Andrade [facility] Note Date/Time September 16, 2024 2:5 1pm [facility] Medical Records Department [address] [place] [address] Consultation - Infectious Dx 09/16/24 1444 MR#: [id number] Acct: [id number] Name: OSCAR WOO Rep #:[id number] : 1950 74 From: Sixto calhoun MD PCP: Dr. Kamar Grimes MD Status:ADM IN Location: [facility] IR451-1 Assessment & Plan Assessment/Plan (1) Infection and [...] rx, d/w Dr. Cavanaugh on 09/13/24, d/w window caser this AM HPI Consult Data Date of [...] performed and neg except as noted above. [facility] Medical History MRSA (methicillin resistant staph aureus) [...] 76.9 H, Lymph % (Auto) 11.6 L, Dolores % (Auto) 7.0, Eos % (Auto) 3.2, [...] Preliminary No growth in 48 hours. 09/16/24 1453 <Electronically signed by Sixto Andrade MD> Cosigner Signature (if applicable): CC: Dr. Kamar Grimes MD; Dr. Fahad Cavanaugh MD~ Signed [facility] Work Phone: 1(422) 134-870103-17-2025 Progress note [facility] Medical Records Department [address] [place] [address] Progress Note - Hospitalist 09/16/24 1603 MR#: [id number] Acct: [id number] Name: OSCAR WOO Rep #:[id number] : 1950 74 From: Jamie Jiang DO PCP: Dr. Kamar Grimes MD Status:ADM IN Location: [place] SN234-3 Reason for Visit Reason for Visit: Diagnoses [...] to go to a rehab facility or senior living facility. Objective Data Objective Data Vital Signs: [...] 76.9 H, Lymph % (Auto) 11.6 L, Dolores % (Auto) 7.0, Eos % (Auto) 3.2, [...] 35 minutes Charges/Coding Visit Charges Inpatient E&M: 57162 Subs Hosp L2 09/16/24 1611 Cosigner Signature (if applicable): CC: ~ Signed [facility]03-17-2025 Progress note Author Fahad Cavanaugh [facility] Note Date/Time September 16, 2024 2:0 5pm [facility] Medical Records Department [address] [place] [address] Progress Note - Orthopedic 09/16/24 1357 MR#: [id number] Acct: [id number] Name: OSCAR WOO Rep #:[id number] : 1950 74 From: Fahad Chi PCP: Dr. Kamar Grimes MD Status:ADM IN Location: [facility] CZ439-1 Subjective Subjective Patient doing well. Denies any chest pain or calf pain. No new shortness of breath. Remains on 2 L of oxygen. Infectious ease was able to the patient thismorning and placed patient on vancomycin IV for 6 weeks. PICC line is in place. Discharge planning has commenced. Patient will likely require senior living upon discharge to help administer IV antibiotics [...] 76.9 H, Lymph % (Auto) 11.6 L, Dolores % (Auto) 7.0, Eos % (Auto) 3.2, [...] attempting to look for placement in a senior living facility. Once we have an accepting facilitywill need to obtain pre-CERT. Patient demonstrates an understanding. [facility] Office: 09/16/24 2855 <Electronically signed by Fahad Cavanaugh MD> Cosigner Signature (if applicable): CC: ~ Signed [facility] Work Phone: 1(665) [phone] Consult note [facility] Medical Records Department [address] [place] [address] Consultation - Infectious Dx 09/16/24 1444 MR#: [id number] Acct: [id number] Name: OSCAR WOO Rep #:[id number] : 1950 74 From: Sixto calhoun MD PCP: Dr. Kamar Grimes MD Status:ADM IN Location: [facility] VW742-9 Assessment & Plan Assessment/Plan (1) Infection and [...] rx, d/w Dr. Cavanaugh on 09/13/24, d/w window caser this AM HPI Consult Data Date of [...] performed and neg except as noted above. [facility] Medical History MRSA (methicillin resistant staph aureus) [...] 76.9 H, Lymph % (Auto) 11.6 L, Dolores % (Auto) 7.0, Eos % (Auto) 3.2, [...] Grimes MD; Dr. Fahad Cavanaugh MD~ Signed [facility]03-17-2025 Progress note [facility] Medical Records Department [address] [place] [address] Progress Note - Orthopedic 09/16/24 1357 MR#: [id number] Acct: [id number] Name: OSCAR WOO Rep #:[id number] : 1950 74 From: Fahad Chi PCP: Dr. Kamar Grimes MD Status:ADM IN [facility] Subjective Subjective Patient doing well. Denies any chest pain or calf pain. No new shortness of breath. Remains on 2 L of oxygen. Infectious ease was able to the patient thismorning and placed patient on vancomycin IV for 6 weeks. PICC line is in place. Discharge planning has commenced. Patient will likely require senior living upon discharge to help administer IV antibiotics [...] 76.9 H, Lymph % (Auto) 11.6 L, Dolores % (Auto) 7.0, Eos % (Auto) 3.2, [...] attempting to look for placement in a senior living facility. Once we have an accepting facilitywill need to obtain pre-CERT. Patient demonstrates an understanding. [facility] Office: 09/16/24 1400 Cosigner Signature (if applicable): CC: ~ Signed [facility]03-17-2025 Consult note Author Tino Law [facility] Note Date/Time September 16, 2024 7:0 3am [facility] Medical Records Department [address] [place] [address] Pharmacokinetic/Renal -Consult 09/15/24 1424 MR#: [id number] Acct: [id number] Name: OSCAR WOO Rep #:[id number] : 1950 74 From: Tino Law PCP: Dr. Kamar Grimes MD Status:ADM IN Location: [place] [address] Consult Antibiotic Management Pharmacy has been consulted [...] Date Fahad Cavanaugh MD CC: ~ Signed [facility] Work Phone: 1(316) 961-292603-17-2025 Consult note Author Tino Law [facility] Note Date/Time September 16, 2024 7:0 3am [facility] Medical Records Department [address] [place] [address] Pharmacokinetic/Renal -Consult 09/16/24 0658 MR#: [id number] Acct: [id number] Name: OSCAR WOO Rep #:[id number] : 1950 74 From: Tino Law PCP: Dr. Kamar Grimes MD Status:ADM IN Location: [place] 922463-1 Consult Antibiotic Management Pharmacy has been consulted [...] Date Fahad Cavanaugh MD CC: ~ Signed [facility] Work Phone: 1(173) 425-779503-17-2025 Consult note [facility] Medical Records Department [address] [place] [address] Pharmacokinetic/Renal -Consult 09/15/24 1424 MR#: [id number] Acct: [id number] Name: OSCAR WOO Rep #:[id number] : 1950 74 From: Tino Law PCP: Dr. Kamar Grimes MD Status:ADM IN Y Location: [place] [address] Consult Antibiotic Management Pharmacy has been consulted [...] Date Fahad Cavanaugh MD CC: ~ Signed [facility]03-17-2025 Consult note [facility] Medical Records Department [address] [place] [address] Pharmacokinetic/Renal -Consult 09/16/24 0658 MR#: [id number] Acct: [id number] Name: OSCAR WOO Rep #:[id number] : 1950 74 From: Tino Law PCP: Dr. Kamar Grimes MD Status:ADM IN Y Location: MS3 PM201-0 Consult Antibiotic Management Pharmacy has been consulted [...] Date Fahad Cavanaugh MD CC: ~ Signed [facility]03-16-2025 Progress note Author Emili Lee [facility] Note Date/Time September 15, 2024 11: 30am [facility] Medical Records Department [address] [place] [address] Progress Note - Hospitalist 09/15/24 0804 MR#: [id number] Acct: [id number] Name: OSCAR WOO Rep #:[id number] : 1950 74 From: Emili Lee MD PCP: Dr. Kamar Grimes MD Status:ADM IN [facility] Reason for Visit Reason for Visit: Diagnoses [...] 36 Minutes Charges/Coding Visit Charges Inpatient E&M: 24824 Subs Hosp L2 09/15/24 1130 <Electronically signed by Emili Lee MD> Cosigner Signature (if applicable): CC: ~ Signed [facility] Work Phone: 1(348) 987-175403-16-2025 Progress note [facility] Medical Records Department [address] [place] [address] Progress Note - Hospitalist 09/15/24 0804 MR#: [id number] Acct: [id number] Name: OSCAR WOO Nitesh Rep #:[id number] : 1950 74 From: Emili Lee MD PCP: Dr. Kamar Grimes MD Status:ADM IN Location: MS3 JE365-8 Reason for Visit Reason for Visit: Diagnoses [...] 36 Minutes Charges/Coding Visit Charges Inpatient E&M: 40204 Subs Hosp L2 09/15/24 1130 Cosigner Signature (if applicable): CC: ~ Signed [facility]03-16-2025 Progress note Author Fahad Cavanaugh [facility] Note Date/Time September 15, 2024 8:1 9am [facility] Medical Records Department [address] [place] [address] Progress Note - Orthopedic 09/15/24 08 MR#: [id number] Acct: [id number] Name: OSCAR WOO Rep #:[id number] : 1950 74 From: Fahad Chi PCP: Dr. Kamar Grimes MD Status:ADM IN [facility] Subjective Subjective Patient doing well overall. No [...] PICC line and home antibiotic regimen. [facility] Office: 09/15/24818 <Electronically signed by Fahad Cavanaugh MD> Cosigner Signature (if applicable): CC: ~ Signed [facility] Work Phone: 1(684) 377-613903-16-2025 Radiology Diagnostic study note [facility] Imaging Services [address] [facility] [place], [place] [id number] Chest PA and Lateral MR#: [id number] Acct: [id number] Name: OSCAR WOO Rep #: [id number] : 1950 F 74 From: Abdulkadir Goodman DO PCP: Dr. Kamar Grimes MD Status: ADM IN Study:Chest PA and Lateral Date of Exam: 09/15/24 Exam# [id number] Ordering Dr: Wenceslao Lee MD PROCEDURE: Chest [...] Grimes MD; Dr. Emili Lee MD ~ Clearance Center Manager: Signed [facility]03-16-2025 Progress note [facility] Medical Records Department [address] [place] [address] Progress Note - Orthopedic 09/15/24 0811 MR#: [id number] Acct: [id number] Name: OSCAR WOO Rep #:[id number] : 1950 74 From: Fahad Chi PCP: Dr. Kamar Grimes MD Status:ADM IN Location: [place] [address] Subjective Subjective Patient doing well overall. No [...] PICC line and home antibiotic regimen. [facility] Office: 09/15/24 0819 Cosigner Signature (if applicable): CC: ~ Signed [facility]03-15-2025 Evaluation note* Diagnosis Onset Date Resolution [...] 12:40pm Hypertension chronic September 14, 2024 12:40pm [facility] Work Phone: 1(576) 481-648203-15-2025 Evaluation note* Diagnosis Onset Date Resolution Status [...] 18 12:40pm Insomnia inactive September 18 12:40pm [facility] Work Phone: 1(397) 817-225403-15-2025 Progress note Author Emili Lee [facility] Note Date/Time September 14, 2024 12: 34pm [facility] Medical Records Department [address] [place] [address] Progress Note - Hospitalist 09/14/24 0752 MR#: [id number] Acct: [id number] Name: OSCAR WOO Rep #:[id number] : 1950 74 From: Emili Lee MD PCP: Dr. Kamar Grimes MD Status:ADM NATE Location: [place] [address] Reason for Visit Reason for Visit: Diagnoses [...] 09/13/24 17:00 IMPRESSION: See above Reading [facility] Physical Exam Narrative General: Alert, oriented, no [...] 35 Minutes Charges/Coding Visit Charges Inpatient E&M: 97804 Subs Hosp L2 09/14/24 1234 <Electronically signed by Emili Lee MD> Cosigner Signature (if applicable): CC: ~ Signed [facility] Work Phone: 1(943) 643-612503-15-2025 Progress note [facility] Medical Records Department [address] [place] [address] Progress Note - Hospitalist 09/14/24 0533 MR#: [id number] Acct: [id number] Name: OSCAR WOO Rep #:[id number] : 1950 74 From: Emili Lee MD PCP: Dr. Kamar Grimes, MD Status:ADM NATE Location: [facility]3 VS472-6 Reason for Visit Reason for Visit: Diagnoses [...] 09/13/24 17:00 IMPRESSION: See above Reading [facility] Physical Exam Narrative General: Alert, oriented, no [...] 35 Minutes Charges/Coding Visit Charges Inpatient E&M: 27336 Subs Hosp L2 09/14/24 1234 Cosigner Signature (if applicable): CC: ~ Signed [facility]03-15-2025 Progress note Author Fahad Cavanaugh [facility] Note Date/Time September 14, 2024 8:4 8am [facility] Medical Records Department [address] [place] [address] Progress Note - Orthopedic 09/14/24 0831 MR#: [id number] Acct: [id number] Name: OSCAR WOO Rep #:[id number] : 1950 74 From: Fahad Chi PCP: Dr. Kamar Grimes MD Status:ADM NATE Location: [place] [address] Subjective Subjective Patient is doing well overall. [...] 09/13/24 17:00 IMPRESSION: See above Reading [facility] Physical Exam Narrative Left upper extremity: Dressing [...] PICC line and home antibiotic regimen. [facility] Office: 09/14/24 0848 <Electronically signed by Fahad Cavanaugh MD> Natalieer Signature (if applicable): CC: ~ Signed [facility] Work Phone: 1(764) 891-540003-15-2025 Progress note Author Abdirashid Carrasquillo [facility] Note Date/Time September 14, 2024 6:5 7am [facility] Medical Records Department [address] [place] [address] Progress Note - Hospitalist 09/13/241957 MR#: [id number] Acct: [id number] Name: OSCAR WOO Rep #:[id number] : 1950 74 From: Abdirashid Lloyd DO PCP: Dr. Kamar Grimes MD Status:ADM NATE Location: [place] [address] Reason for Visit Reason for Visit: Diagnoses [...] 09/13/24 17:00 IMPRESSION: See above Reading [facility] Physical Exam Const alert, oriented x3 and [...] Cosigner Signature (if applicable): CC: ~ Signed [facility] Work Phone: 1(737) 852-684803-15-2025 Progress note [facility] Medical Records Department [address] [place] [address] Progress Note - Orthopedic 09/14/24 0831 MR#: [id number] Acct: [id number] Name: OSCAR WOO Rep #:[id number] : 1950 74 From: Fahad Chi PCP: Dr. Kamar Grimes MD Status:ADM NATE Location: [place] [address] Subjective Subjective Patient is doing well overall. [...] [facility] Office: 09/14/24 0840 Cosigner Signature (if applicable): CC: ~ Signed [facility]03-15-2025 Procedure note [facility] Medical Records Department [address] [place] [address] Operative Report 09/13/24 1620 MR#: [id number] Acct: [id number] Name: OSCAR WOO Rep #:[id number] : 1950 74 From: Fahad Chi PCP: Dr. 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 Their intimate [...] Hose VTE Pharm Prophylaxis ordered?: Yes 09/14/24 5250 Cosigner Signature (if applicable): CC: Dr. Kamar Grimes MD; Dr. Emili Lee MD; Dr. Fahad Cavanaugh MD~ Signed [facility]03-15-2025 Progress note [facility] Medical Records Department [address] [place] [address] Progress Note - Hospitalist 09/13/241957 MR#: [id number] Acct: [id number] Name: OSCAR WOO Rep #:[id number] : 1950 74 From: Abdirashid Lloyd DO PCP: Dr. Kamar Grimes MD Status:ADM NATE Location: [place] [address] Reason for Visit Reason for Visit: Diagnoses [...] 09/13/24 17:00 IMPRESSION: See above Reading [facility] Physical Exam Const alert, oriented x3 and [...] Cosigner Signature (if applicable): CC: ~ Signed [facility]03-14-2025 Consult note Author Mercedes Patel [facility] Note Date/Time September 13, 2024 7[facility] [address] [place] [address] Pharmacokinetic/Renal -Consult 09/13/241932 MR#: [id number] Acct: [id number] Name: OSCAR WOO Rep #:[id number] : 1950 74 From: Mercedes Patel PCP: Dr. Kamar Grimes MD Status:ADM NATE Y Location: [place] [address] Consult Antibiotic Management Pharmacy has been consulted [...] Signature (if applicable): Date CC: ~ Signed [facility] Work Phone: 1(888) 623-775503-14-2025 Consult note Author Omar Walters [facility] Note Date/Time September 13, 2024 7:1 0pm [facility] Medical Records Department [address] [place] [address] Anesthesia Postop Eval II 09/13/241909 MR#: [id number] Acct: [id number] Name: OSCAR WOO Rep #:[id number] : 1950 74 From: Omar Walters MD PCP: Dr. Kamar rGimes MD Status:ADM NATE Y Race: C Location: [place] [address] Anesthesia Postop Eval I Sum Postop Eval Completion status Anesthesia document: Postop Eval 1 completed: Yes Anesthesia Postop Eval I Summary Anesthesia Postop Eval I Summary: Anesthesia Postop Eval I: Assessment Summary Airway patent Yes 09/13/24 17:12 BEAD FLIPPER.TNES Spontaneous unlabored Yes 09/13/24 17:12 BEAD FLIPPER.TNES respirations Mental status Calm 09/13/24 17:12 BEAD FLIPPER.TNES nausea No 09/13/24 17:12 BEAD FLIPPER.TNES Vomiting No 09/13/24 17:12 BEAD FLIPPER.TNES Anesthesia Postop Eval I: Fluid Summary Crystalloid volume administer 2,000 09/13/24 17:12 BEAD FLIPPER.TNES (ml) Colloids volume administered ( ml) Blood Product volume administered (ml) Total IV fluid infused 2,000 09/13/24 17:12 BEAD FLIPPER.TNES Anesthesia Postop Eval I: Summary Notes Anesthesia Complication No 09/13/24 17:12 BEAD FLIPPER.TNES Anesthesia Complication Comment: Post-operative progress note Anesthesia: Postop Eval II Evaluation Mental status: Awake Pain Level: 1 nausea: No Vomiting: No 09/13/241909 <Electronically signed by Omar Walters MD > Date _ Omar Walters MD Cosigner Signature: Date CC: ~ Signed [facility] Work Phone: 1(455) 537-946503-14-2025 Consult note [facility] Medical Records Department [address] [place] [address] Pharmacokinetic/Renal -Consult 09/13/241932 MR#: [id number] Acct: [id number] Name: OSCAR WOO Rep #:[id number] : 1950 74 From: Mercedes Patel PCP: Dr. Kamar Grimes MD Status:ADM NATE Y Location: [place] [address] Consult Antibiotic Management Pharmacy has been consulted [...] Signature (if applicable): Date CC: ~ Signed [facility]03-14-2025 Consult note Author Doug Urias [facility] Note Date/Time September 13, 2024 5:1 2pm [facility] Medical Records Department [address] [place] [address] Anesthesia Postop Eval I 09/13/24 1711 MR#: [id number] Acct: [id number] Name: OSCAR WOO Rep #:[id number] : 1950 74 From: Doug DEVINE PCP: Dr. Kamar Grimes MD Status:ADM NATE Y Race: C Location: [place] [address] Anesthesia: Postop Eval I Current Vital Signs [...] CRNA Cosigner Signature: Date CC: ~ Signed [facility] Work Phone: [phone]) [phone] Consult note [facility] Medical Records Department [address] [facility] [place] [address] Anesthesia Postop Eval II 09/13/24 1910 MR#: [id number] Acct: [id number] Name: OSCAR WOO Rep #:[id number] : 1950 74 From: Omar Walters MD PCP: Dr. Kamar Grimes MD Status:ADM NATE Y Race: C Location: [place] [address] Anesthesia Postop Eval I Sum Postop Eval Completion status Anesthesia document: Postop Eval 1 completed: Yes Anesthesia Postop Eval I Summary Anesthesia Postop Eval I Summary: Anesthesia Postop Eval I: Assessment Summary Airway patent Yes 09/13/24 17:12 BEAD FLIPPER.TNES Spontaneous unlabored Yes 09/13/24 17:12 BEAD FLIPPER.TNES respirations Mental status Calm 09/13/24 17:12 BEAD FLIPPER.TNES nausea No 09/13/24 17:12 BEAD FLIPPER.TNES Vomiting No 09/13/24 17:12 BEAD FLIPPER.TNES Anesthesia Postop Eval I: Fluid Summary Crystalloid volume administer 2,000 09/13/24 17:12 BEAD FLIPPER.TNES (ml) Colloids volume administered ( ml) Blood Product volume administered (ml) Total IV fluid infused 2,000 09/13/24 17:12 BEAD FLIPPER.TNES Anesthesia Postop Eval I: Summary Notes Anesthesia Complication No 09/13/24 17:12 BEAD FLIPPER.TNES Anesthesia Complication Comment: Post-operative progress note Anesthesia: Postop Eval II Evaluation Mental status: Awake Pain Level: 1 nausea: No Vomiting: No 09/13/24 1910 > Date _ Omar Luqueigner Signature: Date CC: ~ Signed [facility]03-14-2025 Radiology Diagnostic study note [facility] Imaging Services [address] [facility] [place] [place] [address] Shoulder min 2 Views MR#: [id number] Acct: [id number] Name: OSCAR WOO Rep #: [id number] : 1950 F 74 From: Yen Donaldson MD PCP: Dr. Kamar Grimes MD Status: ADM ANTE Study:Shoulder min 2 Views Date of Exam: 09/13/24 Exam# [id number] Ordering Dr: Celine Cavanaugh MD PROCEDURE: SHOULDER [...] Grimes MD; Dr. Fahad Cavanaugh MD ~ Clearance Center Manager: Signed [facility]03-14-2025 Consult note [facility] Medical Records Department [address] [facility] [place] [place] [address] Anesthesia Postop Eval I 09/13/24 1711 MR#: [id number] Acct: [id number] Name: OSCAR WOO Rep #:[id number] : 1950 74 From: Doug DEVINE PCP: Dr. Kamar Grimes MD Status:ADM NATE Y Race: C Location: [place] [address] Anesthesia: Postop Eval I Current Vital Signs [...] Postop Eval 1 completed: Yes 09/13/24 1712 BEAD FLIPPER> Date _ Doug [place] BEAD FLIPPER Cosigner Signature: Date CC: ~ Signed [facility]03-14-2025 Consult note Author Omar gracy [facility] Note Date/Time September 13, 2024 12: 05pm [facility] Medical Records Department [address] [place] [address] Pre-Anesthesia Evaluation 09/13/24 1204 MR#: [id number] Acct: [id number] Name: OSCAR WOO Rep #:[id number] : 1950 74 From: Omar Walters MD PCP: Dr. Kamar Grimes MD Status:ADM IN Y Race: C Location: [place] [address] ASA Classification* ASA Classification ASA Classification: 2 [...] LEFT SHOULDER Anesthesia History Anesthesia History - expert medical writer: Anesthesia History - expert medical writer Hx Hospitalization No 09/11/24 15:02 Any Problems [...] take am of surgery PONV PONV - expert medical writer: PONV - expert medical writer Female Yes 09/11/24 15:02 HX of Motion [...] 05/05/22 15:52 Respiratory Assessment Respiratory Assessment - expert medical writer: Respiratory Tract Infection Hx - expert medical writer Hx Respiratory Tract Infection No 09/11/24 15:02 STOP Sleep Apnea STOP Sleep Apnea - expert medical writer: STOP Sleep Apnea - expert medical writer Hx Hypertension Yes: CONTROLLED WITH MED 09/11/24 [...] Tobacco Use History Tobacco Use History - expert medical writer: Tobacco Use History - expert medical writer Tobacco Use Smoking Status Former smoker 09/11/24 15:02 Hx Tobacco Use No 09/11/24 15:02 Years Smoking Packs Smoked per Day Smoking Cessation Date was No - quit smoking greater 09/11/24 15:02 within the last 15 years than 15 years ago Hx Smoking Cessation Date Hx Smoking Cessation No 09/11/24 15:02 Counseling Hematologic Medial History Hematologic Hx - expert medical writer: Hematologic Medical Hx - supervisor rolling room Hx of Blood Transfusion Yes 09/11/24 15:02 [...] confused, unrespo /Reproduction History /Reproductive History - expert medical writer: /Reproductive Hx- expert medical writer Hx Now No 09/11/24 15:02 Gestational Age [...] MD > Date _ Omar Walters [facility] Signature: Date CC: ~ Signed [facility] Work Phone: 1(507) 454-450403-14-2025 Consult note [facility] Medical Records Department [address] [place] [address] Pre-Anesthesia Evaluation 09/13/24 1204 MR#: [id number] Acct: [id number] Name: OSCAR WOO Rep #:[id number] : 1950 74 From: Omar Walters MD PCP: Dr. Kamar Grimes MD Status:ADM IN Y Race: C Location: [place] [address] ASA Classification* ASA Classification ASA Classification: 2 [...] LEFT SHOULDER Anesthesia History Anesthesia History - expert medical writer: Anesthesia History - expert medical writer Hx Hospitalization No 09/11/24 15:02 Any Problems [...] take am of surgery PONV PONV - expert medical writer: PONV - expert medical writer Female Yes 09/11/24 15:02 HX of Motion [...] 05/05/22 15:52 Respiratory Assessment Respiratory Assessment - expert medical writer: Respiratory Tract Infection Hx - expert medical writer Hx Respiratory Tract Infection No 09/11/24 15:02 STOP Sleep Apnea STOP Sleep Apnea - expert medical writer: STOP Sleep Apnea - expert medical writer Hx Hypertension Yes: CONTROLLED WITH MED 09/11/24 [...] Tobacco Use History Tobacco Use History - expert medical writer: Tobacco Use History - expert medical writer Tobacco Use Smoking Status Former smoker 09/11/24 15:02 Hx Tobacco Use No 09/11/24 15:02 Years Smoking Packs Smoked per Day Smoking Cessation Date was No - quit smoking greater 09/11/24 15:02 within the last 15 years than 15 years ago Hx Smoking Cessation Date Hx Smoking Cessation No 09/11/24 15:02 Counseling Hematologic Medial History Hematologic Hx - expert medical writer: Hematologic Medical Hx - supervisor rolling room Hx of Blood Transfusion Yes 09/11/24 15:02 [...] confused, unrespo /Reproduction History /Reproductive History - expert medical writer: /Reproductive Hx- expert medical writer Hx Now No 09/11/24 15:02 Gestational Age [...] MD Cosigner Signature: Date CC: ~ [facility]igned [facility] Madi Caballero [facility] Note Date/Time March 26, 2025 3:22pm [facility] Medical Records Department [address] [place] [address] Counseling Note - Pharmacy 03/26/25 1342 MR#: [id number] Acct: [id number] Name: OSCAR WOO Rep #:[id number] : 1950 75 From: Madi medel PCP: Dr. Kamar Grimes MD Status:ADM IN Y Location: [place] [address] Pharmacy [facility] has performed discharge medication counseling [...] Signature (if applicable): Date CC: ~ Signed [facility] Work Phone: Consult note Author Reginaldo [facility] Note Date/Time April 19, 2025 6 :01pm [facility] Medical Records Department [address] [place] [address] Consultation - Latin American Studies Professor 04/19/25 1750 MR#: [id number] Acct: [id number] Name: OSCAR WOO Rep #:[id number] : 1950 75 From: Reginaldo Fatima MD PCP: Dr. Kamar Grimes MD Status:ADM IN [facility] Consult Data Date of Consult: [...] SOB but her brain still seems "foggy". [facility] Medical History Saccular aneurysm Infection of [...] mls @ 15 mls/hr 04/19/25 02:16 IV .[id number] PRN Saline Flush Sodium Chloride 250 mls @ 15 mls/hr 04/19/25 02:16 IV .[id number] PRN Additional IVPB Infusion Melatonin 10 mg [...] 72.5 H, Lymph % (Auto) 15.6 L, Dolores % (Auto) 7.9, Eos % (Auto) 2.7, [...] No focal consolidation. Mild cardiomegaly. Reading Location: [facility] [address] Assessment and Plan . Assessment and plan: [...] applicable): CC: Dr. Kamar Grimes MD~ Signed [facility] Work Phone: Consult note Author Keya Basilio [facility] Note Date/Time April 21, 2025 8 :53pm [facility] Medical Records Department [address] [place] [address] Consultation - Nephrology 04/21/252049 MR#: [id number] Acct: [id number] Name: OSCAR WOO Rep #:[id number] : 1950 75 From: Keya kendrick MD PCP: Dr. Kamar Grimes MD Status:ADM IN [facility] Assessment & Plan Assessment/Plan (1) [...] no edema right now. no urinary complaints. [facility] Medical History Saccular aneurysm Infection of [...] RLS 5 Unknown History OXYGEN - Supplemental ([facility] hypoxia 04/21/25 Unknown Hi story INFORMATIONAL USE [...] 74.4 H, Lymph % (Auto) 13.3 L, Dolores % (Auto) 8.1, Eos % (Auto) 2.6, [...] applicable): CC: Dr. Kamar Grimes MD~ Signed [facility] Work Phone: Discharge summary Author Garfield Pierson [facility] Note Date/Time April 23, 2025 5 :03pm [facility] Medical Records Department [address] [place] [address] Transfer to Extended Care MR#: [id number] Acct: [id number] Name: OSCAR WOO Rep #:[id number] : 1950 75 From: Garfield Chi PCP: Dr. Kamar Grimes MD Status:ADM IN Certification of patient admission REQUIRED AT TIME OF ADMISSION. I CERTIFY THAT POST-HOSPITAL ECF SERVICES ARE REQUIRED TO BE GIVEN ON AN IN-PATIENT BASIS BECAUSE OF THE ABOVE NAMED PATIENT'S NEED FOR ALF CARE ON A CONTINUING BASIS FOR THE [...] is a 75-year-old female who presented to [facility] ED on 04/18/2025 with worsening hyponatremia [...] Repeat sodium was 123. Improved 3 mEq. Fabrication Welder is consulted. Calculated serum iron 267. Measured [...] normal range.UA negative, hCG 1.015, protein 30. Fabrication Welder on board 04/21: Serum sodium improved 127 today. K4.2. Bicarb of 37.5. Anion gap 5. Osmolar gap was normal as mentioned above. 04/22 was seen by mathematics improvement teacher. Sodium and chloride at baseline. Sodium 130 [...] % (Auto) 66.8, Lymph % (Auto) 18.2 L,Dolores % (Auto) 8.7, Eos % (Auto) 3.7, [...] 0.5 mg PO DINNER OXYGEN - Supplemental ([facility] INFORMATIONAL USE ONLY) Patient Comments: DME: [employer] [...] in before D/C Order can be placed): [facility] 04/23/25 1703 <Electronically signed by Garfield [...] MD; Dr. John Quinn MD; Dr. Rosalind Kye MD ~ [facility] Work Phone: Discharge summary Author [facility] Note Date/Time April 23, 2025 5 :11pm [facility] Medical Records Department [address] [place] [address] Discharge Summary 04/23/25 1708 MR#: [id number] Acct: [id number] Name: OSCAR WOO Rep #:[id number] : 1950 75 From: Garfield Chi PCP: Dr. Kamar Grimes MD Status:ADM IN Location: [place] [id number]- Providers Date of Admission: 04/18/25 Date of Discharge: 04/23/25 Primary Care Physician: Dr. Kamar Grimes MD Consultations 04/18/25 22:05 Consult: Nephrology Routine Consulting Provider: Keya Basilio Reason for Consult: worsening hyponatremia, severe hypochloremia, [place] EMERGENT Consult: No MD Notified: Yes Date Notified: 04/19/25 Time Notified: 06:47 Method of Notification: Answering Service 04/19/25 14:46 Consult: Latin American Studies Professor / Pulmonary Medicine Routine Consulting Provider: Intensivists/Pulmonary Med Reason for Consult: hypotension, dizzy EMERGENT Consult: No Notified: Yes Date Notified: 04/19/25 Time Notified: 14:44 Method of Notification: Answering Service Reason For Visit: HYPONATREMIA, FALLS Diagnosis Discharge Diagnosis (1) Hyponatremia: Status: Acute Code(s): E87.1 - Hypo-osmolality and hyponatremia Plan Patient is a 75-year-old female who presented to [facility] ED on 04/18/2025 with worsening hyponatremia [...] Repeat sodium was 123. Improved 3 mEq. Fabrication Welder is consulted. Calculated serum iron 267. Measured [...] normal range.UA negative, hCG 1.015, protein 30. Fabrication Welder on board 04/21: Serum sodium improved 127 today. K4.2. Bicarb of 37.5. Anion gap 5. Osmolar gap was normal as mentioned above. 04/22 was seen by mathematics improvement teacher. Sodium and chloride at baseline. Sodium 130 [...] % (Auto) 66.8, Lymph % (Auto) 18.2 L,Dolores % (Auto) 8.7, Eos % (Auto) 3.7, [...] PO DINNER RLS 04/16/25 OXYGEN - Supplemental ([facility] INFORMATIONAL USE ONLY) hypoxia 04/21/25 carvedilol 3.125 [...] 0.5 mg PO DINNER OXYGEN - Supplemental ([facility] INFORMATIONAL USE ONLY) Patient Comments: DME: Narciso [...] in before D/C Order can be placed): [facility] Charges/Coding Visit Charges Inpatient E&M: 06282 Disch Hosp >30min 04/23/251710 <Electronically signed by Garfield Pierson MD> Cosigner Signature (if applicable): CC: Dr. Kamar Grimes MD; Dr. Garfield Pierson MD~ Signed [facility] Work Phone: Discharge summary Author Garfield Pireson [facility] Note Date/Time April 23, 2025 6 :03pm [facility] Medical Records Department [address] [place] [address] Transfer to [facility] MR#: [id number] Acct: [id number] Name: OSCAR WOO Rep #:[id number] : 1950 75 From: Garfield Chi PCP: Dr. Kamar Grimes MD Status:ADM IN Certification of patient admission REQUIRED AT TIME OF ADMISSION. I CERTIFY THAT POST-HOSPITAL ECF SERVICES ARE REQUIRED TO BE GIVEN ON AN IN-PATIENT BASIS BECAUSE OF THE ABOVE NAMED PATIENT'S NEED FOR ALF CARE ON A CONTINUING BASIS FOR THE [...] is a 75-year-old female who presented to [facility] ED on 04/18/2025 with worsening hyponatremia [...] Repeat sodium was 123. Improved 3 mEq. Fabrication Welder is consulted. Calculated serum iron 267. Measured [...] normal range.UA negative, hCG 1.015, protein 30. Fabrication Welder on board 04/21: Serum sodium improved 127 today. K4.2. Bicarb of 37.5. Anion gap 5. Osmolar gap was normal as mentioned above. 04/22 was seen by mathematics improvement teacher. Sodium and chloride at baseline. Sodium 130 [...] % (Auto) 66.8, Lymph % (Auto) 18.2 L,Dolores % (Auto) 8.7, Eos % (Auto) 3.7, [...] 0.5 mg PO DINNER OXYGEN - Supplemental ([facility] INFORMATIONAL USE ONLY) Patient Comments: DME: [employer] [...] in before D/C Order can be placed): Prison [facility] 04/23/25 2249 <Electronically signed by Garfield Pierson MD> Cosigner Signature (if applicable): CC: Dr. Garrick Staplse MD; Dr. Jermaine Simms DO; Dr. Wally [...] Quinn MD; Dr. Rosalind Key MD ~ [facility] Work Phone: Evaluation noteNo assessment information available [facility] Work Phone: Evaluation note* Diagnosis Onset Date Resolution Status Admit Date [facility] Acute hypotension acute [facility] 2024 7:38pm Acute kidney injury acute [facility] 2024 7:38pm Acute respiratory failure with hypoxia and [facility]capnia [facility] Bacteria in urine acute [facility] 2024 7:38pm Debility acute March 7:38pm Hypothermia acute March 7:38pm Shock acute March 7:38pm Acute on chronic respiratory failure with hypoxia and hypercapnia chronic March 18, 2025 7:38pm [facility] Work Phone: History and physical note Author Emili Lee [facility] Note Date/Time March 18, 2025 8:45pm [facility] Medical Records Department [address] [place] [address] H&P Exam - Hospitalist 03/18/251937 MR#: [id number] Acct: [id number] Name: OSCAR WOO Rep #:[id number] : 1950 75 From: Emili Lee MD PCP: Dr. Kamar Grimes MD Status:ADM IN Location: ICU ICU02-1 HPI - General General Date of Admission: 03/18/25 Date of Service: 03/18/25 Chief Complaint: Altered mental status HPI Narrative OSCAR WOO, is a 75-year-old female with a history of restless leg syndrome, hypertension, depression, hypertension presented [facility] ED 03/18/2025 due to altered mental [...] and had not been having any vomiting. [facility] Medical History Infection and inflammatory reaction due [...] 84.3 H, Lymph % (Auto) 7.4 L, Dolores % (Auto) 7.0, Eos % (Auto) 0.0, [...] Clarity Clear, Urine pH 6.0, Ur Specific [place] 1.015, Urine Protein 30 H, Urine Glucose [...] IMPRESSION: No acute intracranial process. Reading Location: [id number] Chest X-Ray 03/18/25 15:35 IMPRESSION: Bilateral low lung volumes. No acute cardiopulmonary abnormality. Reading Location: [id number] Chest X-Ray 03/18/25 17:44 IMPRESSION: 1. Endotracheal tube tip 3.1 cm above the abigail. 2. Enteric tube appropriately positioned terminating in the upper midabdomen. 3. Cardiomegaly, with increased vascular markings and possible interstitial edema. Reading Location: [facility] KUB X-Ray 03/18/25 18:00 IMPRESSION: Enteric tube terminates appropriately within the stomach. Persistent IV contrast opacifying the kidneys suggesting medical renal disease with delayed excretion. Reading Location: [facility] Assessment & Plan Assessment/Plan (1) Shock: [...] started -Patient be admitted to the ICU, telemetry tech consulted - Patient received 1 L of IV fluids, not given further IV fluids due to recent diagnosis of heart failure and chest x-ray coronary congestion # Acute hypoxic hypercapnic respiratory failure -Patient came in altered, developed progressive hypoxia and was found to be hypercapnic, ultimately required intubation and sedation -Admit to ICU -Workup as above -Scheduled nebs -Will check proBNP - Latin American Studies Professor consult #Acute renal failure - Creatinine was [...] Vasopressors started Charges/Coding Visit Charges Inpatient E&M: 67766 Init Hosp L3 03/18/252044 <Electronically signed by Emili Lee MD> Cosigner Signature (if applicable): CC: Dr. Kamar Grimes MD; Dr. Emili Lee MD~ Signed [facility] Work Phone: History and physical note Author [facility] Note Date/Time April 18, 2025 1 0:05pm [facility] Medical Records Department [address] [place] [address] H&P Exam - Hospitalist 04/18/25 1717 MR#: [id number] Acct: [id number] Name: OSCAR WOO Rep #:[id number] : 1950 75 From: Jermaine Beatty jennifer PIERSON PCP: Dr. Kamar Grimes MD Status:ADM IN Location: [facility] MDF522- 1 HPI - General General Date of Admission: 04/18/25 Date of Service: 04/18/25 Chief Complaint: Worsening hyponatremia and falls HPI Narrative OSCAR WOO, is a 75 F who presented to [facility] on 04/18/2025 with worsening hyponatremia and [...] currently. Will be admitted for further management. [facility] Medical History Saccular aneurysm Infection of [...] 77.8 H, Lymph % (Auto) 10.9 L, Dolores % (Auto) 8.9, Eos % (Auto) 1.6, [...] is a 75-year-old female who presented to [facility] ED on 04/18/2025 with worsening hyponatremia [...] 86 minutes. Charges/Coding Visit Charges Inpatient E&M: 72108 Init Hosp L3 04/18/256 <Electronically signed by Jermaine Simms DO> Cosigner Signature (if applicable): CC: Dr. Jermaine Simms DO; Dr. Kamar Grimes MD~ Signed [facility] Work Phone: Hospital Discharge instructionsAdditional Instructions [...] Reddy as previously instructed Date of Discharge: 03/26/25[facility] Work Phone: Hospital Discharge instructionsAdditional Instructions Date of Discharge: 04/23/25[facility] Work Phone: Progress note Author Garfield Pierson [facility] Note Date/Time April 19, 2025 4 :45pm [facility] Medical Records Department [address] [place] [address] Progress Note - Hospitalist 04/19/251136 MR#: [id number] Acct: [id number] Name: OSCAR WOO Rep #:[id number] : 1950 75 From: Garfield Chi PCP: [...] 77.8 H, Lymph % (Auto) 10.9 L, Dolores % (Auto) 8.9, Eos % (Auto) 1.6, [...] is a 75-year-old female who presented to [facility] ED on 04/18/2025 with worsening hyponatremia [...] Repeat sodium was 123. Improved 3 mEq. Fabrication Welder is consulted. Calculated serum iron 267. Measured [...] 35 minutes. Charges/Coding Visit Charges Inpatient E&M: 36984 Subs Hosp L3 04/19/255 <Electronically signed by Garfield Pierson MD> Cosigner Signature (if applicable): CC: ~ Signed [facility] Work Phone: Proxlqkb note Author Keya Basilio [facility] Note Date/Time April 19, 2025 4 :34pm [facility] Medical Records Department [address] [place] [address] Progress Note 04/19/25 163 MR#: [id number] Acct: [id number] Name: OSCAR WOO Rep #:[id number] : 1950 75 From: Keya kendrick MD PCP: Dr. Kamar Grimes MD Status:ADM IN Location: ICU CVICU20 07-03 Progress Note attempted to see earlier. was not in room. chart reviewed. normal baseline sodium. hyponatremia, hypochloremia, likely volume depletion. 04/19/25 1634 <Electronically signed by Keya Basilio MD> Keya Basilio MD Cosigner Signature (if applicable): CC: ~ Signed [facility] Work Phone: Prooalsq note Author Garfield [facility] Note Date/Time April 20, 2025 8 :21am [facility] Medical Records Department [address] [place] [address] Progress Note - Hospitalist 04/20/25 0726 MR#: [id number] Acct: [id number] Name: OSCAR WOO Rep #:[id number] : 1950 75 From: Garfield Chi PCP: [...] (Auto) 72.5 H, Lymph % (Auto) 15.6 L,Dolores % (Auto) 7.9, Eos % (Auto) 2.7, [...] (Auto) 73.3 H, Lymph % (Auto) 14.8 L,Dolores % (Auto) 7.7, Eos % (Auto) 2.9, [...] No focal consolidation. Mild cardiomegaly. Reading Location: [facility] Physical Exam Narrative Seen and examined Patient [...] is a 75-year-old female who presented to [facility] ED on 04/18/2025 with worsening hyponatremia [...] Repeat sodium was 123. Improved 3 mEq. Fabrication Welder is consulted. Calculated serum iron 267. Measured [...] normal range.UA negative, hCG 1.015, protein 30. Fabrication Welder on board 2. ELVIA with mild hyperkalemia, [...] 35 minutes. Charges/Coding Visit Charges Inpatient E&M: 03393 Subs Hosp L3 04/20/25 0821 <Electronically signed by Garfield Pierson MD> Cosigner Signature (if applicable): CC: ~ Signed [facility] Work Phone: Progress note Author Reginaldo Fatima [facility] Note Date/Time April 20, 2025 2 :29pm [facility] Medical Records Department [address] [place] [address] Progress Note - Latin American Studies Professor 04/20/25 1428 MR#: [id number] Acct: [id number] Name: OSCAR WOO Rep #:[id number] : 1950 75 From: Reginaldo Fatima MD [...] mls @ 15 mls/hr 04/19/25 02:16 IV .[id number] PRN Saline Flush Sodium Chloride 250 mls @ 15 mls/hr 04/19/25 02:16 IV .[id number] PRN Additional IVPB Infusion Melatonin 10 mg [...] (Auto) 72.5 H, Lymph % (Auto) 15.6 L,Dolores % (Auto) 7.9, Eos % (Auto) 2.7, [...] (Auto) 73.3 H, Lymph % (Auto) 14.8 L,Dolores % (Auto) 7.7, Eos % (Auto) 2.9, [...] Sl. Cloudy, Urine pH 6.0, Ur Specific [place] 1.010, Urine Protein 30 H, Urine Glucose [...] No focal consolidation. Mild cardiomegaly. Reading Location: [facility] Assessment and Plan . Assessment and plan: [...] Cosigner Signature (if applicable): CC: ~ Signed [facility] Work Phone: Progress note Author Garfield Pierson [facility] Note Date/Time April 21, 2025 8 :39am [facility] Medical Records Department [address] [place] [address] [place] [address] Progress Note - Hospitalist 04/21/25 0833 MR#: [id number] Acct: [id number] Name: OSCAR WOO Rep #:[id number] : 1950 75 From: Garfield Chi PCP: Dr. Kamar Grimes MD Status:ADM IN Location: ICU [place] [address] 1-1 Reason for Visit Chief Complaint: Worsening [...] Sl. Cloudy, Urine pH 6.0, Ur Specific [place] 1.010, Urine Protein 30 H, Urine Glucose [...] 74.4 H, Lymph % (Auto) 13.3 L, Dolores % (Auto) 8.1, Eos % (Auto) 2.6, [...] is a 75-year-old female who presented to [facility] ED on 04/18/2025 with worsening hyponatremia [...] Repeat sodium was 123. Improved 3 mEq. Fabrication Welder is consulted. Calculated serum iron 267. Measured [...] normal range.UA negative, hCG 1.015, protein 30. Fabrication Welder on board 04/21: Serum sodium improved 127 [...] Sl. Cloudy, Urine pH 6.0, Ur Specific [place] 1.010, Urine Protein 30 H, Urine Glucose [...] 74.4 H, Lymph % (Auto) 13.3 L, Dolores % (Auto) 8.1, Eos % (Auto) 2.6, [...] Calcium 9.0 Charges/Coding Visit Charges Inpatient E&M: 91530 Subs Hosp L2 04/21/25 0839 <Electronically signed by Garfield Pierson MD> Cosigner Signature (if applicable): CC: ~ Signed [facility] Work Phone: Progress note Author Keya Basilio [facility] Note Date/Time April 23, 2025 6 :52pm [facility] Medical Records Department [address] [place] [address] Progress Note - Nephrology 04/22/25 1725 MR#: [id number] Acct: [id number] Name: OSCAR WOO Rep #:[id number] : 1950 75 From: Keya kendrick MD PCP: Dr. Kamar Grimes MD Status:ADM IN Location: [place] [address] Subjective Subjective no new events Objective Data [...] % (Auto) 66.8, Lymph % (Auto) 18.2 L,Dolores % (Auto) 8.7, Eos % (Auto) 3.7, [...] Cosigner Signature (if applicable): CC: ~ Signed [facility] Work Phone: Progress note Author Garfield Pierson [facility] Note Date/Time April 22, 2025 5 :33pm [facility] Medical Records Department [address] [place] [address] Progress Note - Hospitalist 04/22/251728 MR#: [id number] Acct: [id number] Name: OSCAR WOO Rep #:[id number] : 1950 75 From: Garfield Chi PCP: Dr. Kamar Grimes MD Status:ADM IN Location: [place] [address] Reason for Visit Chief Complaint: Worsening hyponatremia [...] % (Auto) 66.8, Lymph % (Auto) 18.2 L,Dolores % (Auto) 8.7, Eos % (Auto) 3.7, [...] is a 75-year-old female who presented to [facility] ED on 04/18/2025 with worsening hyponatremia [...] Repeat sodium was 123. Improved 3 mEq. Fabrication Welder is consulted. Calculated serum iron 267. Measured [...] normal range.UA negative, hCG 1.015, protein 30. Fabrication Welder on board 04/21: Serum sodium improved 127 today. K4.2. Bicarb of 37.5. Anion gap 5. Osmolar gap was normal as mentioned above. 04/22 was seen by mathematics improvement teacher. Sodium and chloride at baseline. 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 Marketing Leader Expl anation Advance Directive(s) 01/27/2016 7:37 AM Advance Directive Response Recorded Date/ Time Advance Directives Yes October 03 3:41pm Living Will Yes June 24, 020 2:31pm Power of Fiberglass Autobody Repairer Yes June 24, 2020 2:31pm Advance Directive Response Recorded Date/ Time Advance Directives Yes October 03 2:41pm Living Will Yes June 24 020 1:31pm Power of Fiberglass Autobody Repairer Yes June 24, 2020 1:31pm Advance Directive Response Recorded Date/ Time Living Will Yes September 13, 2024 6:26pm Power of Fiberglass Autobody Repairer Yes September 13 6:26pm Name of Medical Power of Fiberglass Autobody Repairer GRANDDAUGHTER/ SISTER September 13, 2024 6:26pm Advance Directives Yes October 03 3:41pm Advance Directive Response Recorded Date/ Time Living Will Yes September 18, 2024 4:28pm Do you have a Healthcare Power of Fiberglass Autobody Repairer? Yes September 18, 2024 4:28pm Name of Medical Power of Fiberglass Autobody Repairer Sister (Mary Jane Daniels) and Granddaughter (Pattie Woo) September 18, 2024 4:28pm Living Will Yes September 13, 2024 6:26pm Do you have a Healthcare Power of Fiberglass Autobody Repairer? Yes September 13, 2024 6:26pm Name of Medical Power of Fiberglass Autobody Repairer GRANDDAUGHTER/SISTER September 13, 2024 6:26pm Advance Directives Yes October 03 3:41pm Advance Directive Response Recorded Date/ Time Advance Directives Yes October 03 3:41pm Advance Directive Response Recorded Date/ Time Do you have a Healthcare Power of Fiberglass Autobody Repairer? No March 18, 2025 3:48pm Advance Directives Yes October 03 3:41pm Advance Directive Response Recorded Date/ Time Do you have a Healthcare Power of Fiberglass Autobody Repairer? No March 18, 2025 3:48pm Do you have a Healthcare Power of Fiberglass Autobody Repairer? Yes April 18, 2025 7:55pm Advance Directives Yes October 03 3:41pm Advance Directive Response Recorded Date/ Time Do you have a Healthcare Power of Fiberglass Autobody Repairer? No March 18, 2025 2:48pm Do you have a Healthcare Power of Fiberglass Autobody Repairer? Yes April 18, 2025 6:55pm Advance Directives [...] or prosecute any alcohol or drug abuse patient.[facility] Goals (unrecognized section and content) Type [...] Active Member Role Status Dates Dr. Kamar Griems MD Primary Care Provider Active Start: September [...] Provider Active Start: September 16, 2024 Dr. Fahda Cavanaugh MD Admit Provider Active Sta rt: [...] Active Start: September 18, 2024 Dr. Fahad Cavanuagh MD Admit Provider Active Sta rt: September [...] Status: Inactive Member Role/Relationship Status Dates Dr. Kmaar Grimes MD Primary care physician Active Start: [...] Start: March 18, 2025 Jodi Al NP, AIR DEFENSE ARTILLERY SENIOR SERGEANT-C Nurse Practitioner Active Start: March 18, 2025 Sahara Chen AIR DEFENSE ARTILLERY SENIOR SERGEANT-C Nurse Practitioner Active Start: March 18, 2025 [...] End: March 26, 2025 Jodi Al NP, AIR DEFENSE ARTILLERY SENIOR SERGEANT-C Nurse Practitioner Active Start: March 18, 2025 End: March 26, 2025 Sahara Chen AIR DEFENSE ARTILLERY SENIOR SERGEANT-C Nurse Practitioner Active Start: March 18, 2025 [...] Active Start: March 19, 2025 Jodi Al AIR DEFENSE ARTILLERY SENIOR SERGEANT, AIR DEFENSE ARTILLERY SENIOR SERGEANT-C Nurse Practitioner Active Start: March 19, 2025 [...] Start: March 19, 2025 Jodi Al NP, AIR DEFENSE ARTILLERY SENIOR SERGEANT-C Nurse Practitioner Active Start: March 19, 2025 Sahara Chen AIR DEFENSE ARTILLERY SENIOR SERGEANT-C Nurse Practitioner Active Start: March 19, 2025 [...] Active Start: March 20, 2025 Dr. Emili eLe MD Nurse Practitioner Active Start: March 20, [...] Active Start: March 20, 2025 Jodi Al AIR DEFENSE ARTILLERY SENIOR SERGEANT, AIR DEFENSE ARTILLERY SENIOR SERGEANT-C Nurse Practitioner Active Start: March 20, 2025 Sahara Chen NP-C Nurse Practitioner Active Start: March 20, [...] physician Active Start: March 20, 2025 Dr. Eimli Lee MD Nurse Practitioner Active Start: March [...] Active Start: March 20, 2025 Jodi Al AIR DEFENSE ARTILLERY SENIOR SERGEANT, AIR DEFENSE ARTILLERY SENIOR SERGEANT-C Nurse Practitioner Active Start: March 20, 2025 Sahara Chen AIR DEFENSE ARTILLERY SENIOR SERGEANT-C Nurse Practitioner Active Start: March 20, 2025 [...] Start: March 20, 2025 Jodi Al NP, AIR DEFENSE ARTILLERY SENIOR SERGEANT-C Nurse Practitioner Active Start: March 20, 2025 Sahara Chen AIR DEFENSE ARTILLERY SENIOR SERGEANT-C Nurse Practitioner Active Start: March 20, 2025 [...] Start: March 21, 2025 Jodi Al NP, AIR DEFENSE ARTILLERY SENIOR SERGEANT-C Nurse Practitioner Active Start: March 21, 2025 [...] Start: March 21, 2025 Jodi Al NP, AIR DEFENSE ARTILLERY SENIOR SERGEANT-C Nurse Practitioner Active Start: March 21, 2025 [...] Active Start: March 22, 2025 Jodi Al AIR DEFENSE ARTILLERY SENIOR SERGEANT, AIR DEFENSE ARTILLERY SENIOR SERGEANT-C Nurse Practitioner Active Start: March 22, 2025 [...] Active Start: March 23, 2025 Dr. Sixto Andrade MD Nurse Practitioner Active Start: March 23, 2025 Dr. Wally Waddell MD Nurse Practitioner Active Start: March 23, 2025 Dr. Garrick Staples MD Nurse Practitioner Active Sta rt: March 23, 2025 Dr. Murtaza Hunter MD Nurse Practitioner Active Start: March 23, 2025 Dr. Antwan Gardner , Nurse Practitioner Active S tart: March 23, 2025 Dr. Abdirashid Smith MD Nurse [...] Start: March 23, 2025 Jodi Al NP, AIR DEFENSE ARTILLERY SENIOR SERGEANT-C Nurse Practitioner Active Start: March 23, 2025 [...] Active Start: March 24, 2025 Jodi Al AIR DEFENSE ARTILLERY SENIOR SERGEANT, AIR DEFENSE ARTILLERY SENIOR SERGEANT-C Nurse Practitioner Active Start: March 24, 2025 [...] Active Start: March 25, 2025 Dr. Tacos Hollins MD Nurse Practitioner Active Start: March Dr. John Quinn MD Nurse Practitioner Active Start: March 25, 2025 Jodi Al NP, AIR DEFENSE ARTILLERY SENIOR SERGEANT-C Nurse Practitioner Active Start: March 25, 2025 Sahara Chen , AIR DEFENSE ARTILLERY SENIOR SERGEANT-C Nurse Practitioner Active Start: March 25, 2025 [...] Active Start: March 26, 2025 Jodi Al AIR DEFENSE ARTILLERY SENIOR SERGEANT, AIR DEFENSE ARTILLERY SENIOR SERGEANT-C Nurse Practitioner Active Start: March 26, 2025 [...] Active Start: March 19, 2025 Jodi Al AIR DEFENSE ARTILLERY SENIOR SERGEANT, AIR DEFENSE ARTILLERY SENIOR SERGEANT-C Nurse Practitioner Active Start: March 19, 2025 [...] Practitioner Active Start: March 20, 2025 Dr. Hremann Can , Nurse Practitioner Active Start: March 20, 2025 Dr. Cuate Rao MD Nurse Practitioner Active Start: March 20, 2025 Dr. Celestino Gallagher MD Nurse Practitioner Active Start: March 20, 2025 Dr. Tacos Hollins MD Nurse Practitioner Active Start: March Dr. John Quinn MD Nurse Practitioner Active Start: March 20, 2025 Jodi Al AIR DEFENSE ARTILLERY SENIOR SERGEANT, AIR DEFENSE ARTILLERY SENIOR SERGEANT-C Nurse Practitioner Active Start: March 20, 2025 Sahara Chen , TARAH-C Nurse Practitioner Active Start: March 20, 2025 Dr. Otilia Hernandez MD Referring Provider Active Start: March 20, 2025 Dr. Otilia Hernadnez MD Nurse Practitioner Active Start: March 20, [...] Start: March 21, 2025 Jodi Al NP, AIR DEFENSE ARTILLERY SENIOR SERGEANT-C Nurse Practitioner Active Start: March 21, 2025 [...] Active S tart: April 20, 2025 Dr. Celsetino Gallagher MD Nurse Practitioner Active Start: April [...] Practitioner Active Start: April 23, 2025 Dr. Gafrield Pierson MD Attending physician Active Start: April [...] section and content) DATE CREATED AUTHOR 09/13/2024 [facility] DATE CREATED AUTHOR AUTHOR'S ORGANIZ ATION 10/04/2024 [facility] DATE CREATED AUTHOR AUTHOR'S ORGANIZ ATION 05/15/2025 [facility] FOR RECORDS PERTAINING TO PATIENTS WHO [...] BE BASED ON THE PRIMARY CLINICAL RECORDS. [employer] provides no warranty or guarantee of the accuracy or completeness of information in this document.
[2025-06-05 09:32] LABS: Hematocrit 37.6 % (37-47); Hemoglobin 11.2 g/dL (12.0-15.0); Mean Corp Hgb Conc 29.8 g/dL (32-36); Mean Corpuscular Volume 99.7 fL (81-99); Mean Platelet Vol. 10.8 fl (6.2-12.0); Platelet Count 188 K/mm3 (150-450); RBC Distribution Width CV 16.2 % (11.6-14.6); RBC Distribution Width SD 60.7 fl (35.1-43.9); Red Blood Count 3.77 M/mm3 (4.2-5.4); White Blood Count 8.1 K/mm3 (4.4-11.0)
[2025-06-05 09:49] LABS: Anion Gap 8 (5-15); BUN 46 mg/dL (4-19); BUN/Creat Ratio 31.7 RATIO (10-20); Calcium,Total 9.4 mg/dL (7.6-11.0); Carbon Dioxide 31.6 mmol/L (21.0-32.0); Chloride 100 mmol/L (98-108); Glucose 103 mg/dL (70-99); Potassium 5.6 mmol/L (3.3-5.1)
== END ==
LOC: OLS.SW 05:00
PROVIDERS: PCP Family Medicine; Visit Provider Internal Medicine
DX: E87.8 Other disorders of electrolyte and fluid balance, not elsewhere classified (principal); D64.9 Anemia, unspecified
CPT/HCPCS: 36415; 80048; 85027

== ENCOUNTER → 2025-06-06 14:30 | Outpatient (REF) | payer MEDICARE, MEDICAID, SELFPAY ==
--- OUTSIDE RECORDS SUMMARY | 2025-06-06 16:51 | XMS RPT_ITS | CCD ---
Author Organization [facility] Care Team Providers Care Financial Operations Consultant Name Role Phone Kamar Grimes Primary Care [...] Nadira COTTER, Dr. Lo Nurse Practitioner [phone] Bel COTTER, Dr. Mccauley Nurse Practitioner [phone] Dale COTTER, Dr. Hauser Nurse Practitioner [phone] Jj PIERSON, Dr. Moncada Nurse Practitioner Sarah COTTER, Dr. Abdirashid Billy Nurse Practitioner [phone] Akua COTTER, Dr. Hair Nurse Practitioner Josselyn COTTER, Dr. Ruano Nurse Practitioner [phone] Yesi COTTER, Dr. Boyer Nurse Practitioner Ender COTTER, Dr. Walter Nurse Practitioner [phone] Raffy COTTER, Dr. Morrell Nurse Practitioner [phone] Andres COTTER, Dr. Kimble Nurse Practitioner [phone] Kurt COTTER, Dr. Smith Nurse Practitioner Jeanne COTTER, Dr. Melendez Nurse Practitioner Unavail velasquez Barnes MD, Dr. Hendrix Nurse Practitioner Thuy COTTER, Dr. Robles Nurse Practitioner Bhavesh COTTER, Dr. Rae Nurse Practitioner Devyn COTTER, Dr. Lopez Nurse Practitioner Artie PIERSON, Dr. Ortiz Nurse Practitioner Radha COTTER, Dr. Fuller Nurse Practitioner Wicho COTTER, Dr. Blas Nurse Practitioner Pamella PIERSON, Dr. Mccrary Nurse Practitioner [phone] Jalen COTTER, Dr. Cuello Nurse Practitioner Donita diya Gallagher MD, Dr. Tirado Nurse Practitioner [phone] Gurvinder COTTER, Dr. Balderrama Nurse Practitioner Kai COTTER, Dr. Lopez Nurse Practitioner Servando OPHTHALMIC TECHNICIAN-CJodi Nurse Practitioner April OPHTHALMIC TECHNICIAN-CSahara Nurse Practitioner Dr. Kamar Grimes MD Primary Care Physician Dr. Kamar Grimes MD Attending Physician [phone] Dr. Kamar Grimes MD Referring Provider Dr. Carlene Salazar MD Attending Physician Dr. Deion Levy MD Emergency Department Physician Jesus COTTER, Dr. Mock Admitting Physician Jesus COTTER, Dr. Mock Nurse Practitioner Lupe COTTER, Dr. tOt Nurse Practitioner Nadira COTTER, Dr. Lo Nurse Practitioner Bel COTTER, Dr. Mccauley Nurse Practitioner Dale COTTER, Dr. Hauser Nurse Practitioner [phone] Jj PIERSON, Dr. Moncada Nurse Practitioner Sarah COTTER, Dr. Abdirashid Billy Nurse Practitioner Akua COTTER, Dr. Hair Nurse Practitioner Josselyn COTTER, Dr. Ruano Nurse Practitioner [phone] Yesi COTTER, Dr. Boyer Nurse Practitioner Ender COTTER, Dr. Walter Nurse Practitioner [phone] Raffy COTTER, Dr. Morrell Nurse Practitioner [phone] Andres COTTER, Dr. Kimble Nurse Practitioner [phone] Kurt COTTER, Dr. Smith Nurse Practitioner [phone] Jeanne COTTER, Dr. Melendez Nurse Practitioner Unavail [facility] Cameron COTTER, Dr. Hendrix Nurse Practitioner [phone] Thuy COTTER, Dr. Robles Nurse Practitioner Bhavesh COTTER, Dr. Rae Nurse Practitioner Devyn COTTER, Dr. Lopez Nurse Practitioner [phone] Artie PIERSON, Dr. Ortiz Nurse Practitioner Radha COTTER, Dr. Fuller Nurse Practitioner Wicho COTTER, Dr. Blas Nurse Practitioner Pamella PIERSON, Dr. Mccrary Nurse Practitioner [phone] Jalen COTTER, Dr. Cuello Nurse Practitioner Donita diya Gallagher MD, Dr. Tirado Nurse Practitioner [phone] C[address]TER, [address] Balderrama Nurse Practitioner Kai COTTER, Dr. Lopez Nurse Practitioner Servando OPHTHALMIC TECHNICIAN-C, Jodi Nurse Practitioner April OPHTHALMIC TECHNICIAN-C, Sahara Mosher Nurse Practitioner David COTTER, Dr. Otilia Kirby Nurse Practitioner Robby PIERSON, Dr. Acosta Attending Physician Caio COTTER, Dr. Hughes Attending Physician Elroy RASCON-CTayler Referring Provider Jj PIERSON, Dr. Moncada Attending Physician David COTTER, Dr. Otilia Kirby Attending Physician Caio COTTER, Dr. Hughes Nurse Practitioner Robby PIERSON, Dr. Acosta Nurse Practitioner Jesus COTTER, Dr. Mock Referring Provider Daivd COTTER, Dr. Otilia Kirby Referring Provider Maureen COTTER, Dr. Mckeon Attending Physician Mendez PIERSON, Dr. Dean Admitting Physician Mendez PIERSON, Dr. Dean Nurse Practitioner Dangelo COTTER, Dr. Merrill Attending Physician Hartleton , Dr. Singletary Nurse Practitioner Unavailab tan [...] Hollins Consulting UnavailJohn Kline Consulting Unavailable Servando OPHTHALMIC TECHNICIAN, Jodi Consulting Unavailable Sahara Chen Consulting Unavailable [...] Hicks Consulting Unavailable Aljunluli, Lamia Consulting Unavailable Manchester, Shaila Consulting Unavailable Tosha, Mustafizur Consulting UnavailJamie Pack Consulting Unavailable Hector, Ceja Consulting Unavailable Ruma Barnes Consulting Unavailable Ritu Felipe Consulting Unavailable Mari Fallon Consulting Unavailable StanBrenna sparks Consulting Unavailable Luek Rojas Consulting Unavailable Travis Daley Consulting Unavailable Butch Ospina Consulting Unavailable Elva Mixon Consulting Unav ailable John Shepard Consulting Unavailable Angel Alva Consulting Unavailable Alina Garcia Consulting Unavailable Roopa Sands Consulting Unavailable Odilia Lockwood Consulting Unavailable Adarsh Salcido Consulting Unavailable Hermann Can Consulting Unavailable Gaeg Jenkins Consulting Unavailable Celestino Gallagher Consulting Unavailable [...] Hicksber Consulting Unavailable Aljunluli, Lamia Consulting Unavailable Manchester, Shaila Consulting Unavailable Tosha, Mustafizur Consulting UnavailJamie [...] Key Consulting UnavailJose Angel Lovelace Consulting Unavailable Pteros Akbar Consulting Unavailable Lamin Campos Consulting Unavailable [...] Unavailable Sibilia, Sixto V Referring Unavailable Grimes, Akmar Primary Care Unavailable Grimes, Kamar Primary Care [...] Unavailable Wolfgangam, Otilia Mirta Referring Unavailable Caio, Shipman Consulting Unavailable Katrina Yates Attending Unavailable Grimes, [...] Physician Dr. Kamar Grimes MD Referring Provider [phone] Dr. Carlene Salazar MD Attending Physician [phone] Cam COTTER, Dr. Albarran Emergency Department Physician Jesus COTTER, Dr. Mock Admitting Physician Jesus COTTER, Dr. Mock Nurse Practitioner Lupe COTTER, Dr. Ott Nurse Practitioner [phone] Nadira COTTER, Dr. Lo Nurse Practitioner Bel COTTER, Dr. Mccauley Nurse Practitioner [phone] Dale COTTER, Dr. Hauser Nurse Practitioner Jj PIERSON, Dr. Moncada Nurse Practitioner Sarah COTTER, Dr. Abdirashid Billy Nurse Practitioner Akua COTTER, Dr. Hair Nurse Practitioner Josselyn COTTER, Dr. Ruano Nurse Practitioner [phone] Yesi COTTER, Dr. Boyer Nurse Practitioner Ender COTTER, Dr. Walter Nurse Practitioner [phone] Raffy COTTER, Dr. Morrell Nurse Practitioner [phone] Andres COTTER, Dr. Kimble Nurse Practitioner [phone] Kurt COTTER, Dr. Smith Nurse Practitioner [phone] Jeanne COTTER, Dr. Melendez Nurse Practitioner [facility] able Cameron COTTER, Dr. Hendrix Nurse Practitioner [phone] Thuy COTTER, Dr. Robles Nurse Practitioner [phone] Bhavesh COTTER, Dr. Rae Nurse Practitioner Devyn COTTER, Dr. Lopez Nurse Practitioner [phone] Artie PIERSON, Dr. Ortiz Nurse Practitioner Radha COTTER, Dr. Fuller Nurse Practitioner Wicho COTTER, Dr. Blas Nurse Practitioner Pamella PIERSON, Dr. Mccrary Nurse Practitioner [phone] Jalen COTTER, Dr. Cuello Nurse Practitioner Donita diya Gallagher MD, Dr. Tirado Nurse Practitioner Gurvinder COTTER, Dr. Balderrama Nurse Practitioner Kai COTTER, Dr. Lopez Nurse Practitioner [phone] Servando OPHTHALMIC TECHNICIAN-C, Jodi Nurse Practitioner April OPHTHALMIC TECHNICIAN-C, Sahara Mosher Nurse Practitioner David COTTER, Dr. Otilia Kirby Nurse Practitioner Robby PIERSON, Dr. Acosta Attending Physician Caio COTTER, Dr. Hughes Attending Physician Elroy OPHTHALMIC TECHNICIAN-C, Tayler Referring Provider [phone] Jesus COTTER, Dr. Mock Referring Provider Jj PIERSON, Dr. Moncada Attending Physician David COTTER, Dr. Otilia Kirby Attending Physician Caio COTTER, Dr. Hughes Nurse Practitioner David COTTER, Dr. Otilia Kirby Referring Provider Robby PIERSON, Dr. Acosta Nurse Practitioner Maureen COTTER, Dr. Mckeon Attending Physician Mendez PIERSON, Dr. Dena Admitting Physician Mendez PIERSON, Dr. Dean Nurse [...] Tenorio MD, Dr. Laura Nurse Practitioner [phone] Dangelo COTTER, Dr. Merrill Nurse Practitioner Woo COTTER, Dr. Herndon Attending Physician Unavail velasquez Allergies Allergy Classification Reported Allergen(s) Allergy Type Date of Onset Reaction(s) Facility (19 sources) Penicillins; Translations: [Penicillins] Propensity to adverse reactions 6 Shortness of Breath [facility] Medications Current Medications Medication Drug Class(es) Dates Sig (Normalized) Sig (Original) [id number] 200 actuat albuterol 0.09 mg/actuat metered dose [...] docusate sodium 50 mg / felipe osides, senior living 8.6 mg oral tablet (20 sources) Start: [...] Start: 09-19-2014 take 2 tablets by mo wih at bedtime Melatonin 5 MG tablet Active [...] 05-08-2025 Anion gap [Moles/Vol] 8 mmol/L 11-14 [facility] BUN/creatinine ratioOrdered By: Katrina Berkowitz on 05-08-2025 Urea nitrogen/Creatinine [Mass ratio] 21.3 mg/mg High 04-21 [facility] Basic Metabolic Profile (BMP )on 05-08-2025 BUN/CRE 21.3 RATIO High 04-21 [facility] Comment on above: Order Comment: 211.1 Performed By: #### L 500.2500, L100.0500 ####[facility] [address] [place], [address] GAP 8 Normal 5-15 [facility] Comment on above: Order Comment: 211.1 Performed By: #### L 500.2500, L100.0500 ####[facility] [address] [place], [address] Potassium [Moles/Vol] 5.1 mmol/L Normal 3.3-5.1 [facility] Comment on above: Order Comment: 211.1 Result Comment: Hemo lysis present, Results??could be affected.?? Performed By: #### L 500.2500, L100.0500 ####[facility] [address] [place], [address] Basic Metabolic Profile (BMP )Ordered By: Katrina Berkowitz on 05-08-2025 Calcium [Mass/Vol] 9.5 mg/dL Normal 7.6-11.0 [facility] Comment on above: Order Comment: 211.1 Performed By: #### L 500.2500, L100.0500 ####[facility] [address] [place], [address] Chloride [Moles/Vol] 98 mmol/L Normal 98-108 [facility] Comment on above: Order Comment: 211.1 Performed By: #### L 500.2500, L100.0500 ####[facility] [address] [place], [address] CO2 [Moles/Vol] 34.0 mmol/L High 21.0-32.0 [facility] Comment on above: Order Comment: 211.1 Performed By: #### L 500.2500, L100.0500 ####[facility] [address] [place], [address] Creatinine [Mass/Vol] 0.94 mg/dL Normal 0.70-1.20 [facility] Comment on above: Order Comment: 211.1 Performed By: #### L 500.2500, L100.0500 ####[facility] [address] [place], [address] GFR/1.73 sq M.predicted among non-blacks MDRD (S/P/Bld) [Vol rate/Area] 63 mL/min/{1.73_m2} Normal >60 [facility] Comment on above: Order Comment: 211.1 Result Comment: mL/m in/1.73m2 CKD-EPI Creatinine Equation (2020) Performed By: #### L 500.2500, L100.0500 ####[facility] [address] [place], [address] Glucose [Mass/Vol] 97 mg/dL Normal 70-99 [facility] Comment on above: Order Comment: 211.1 Performed By: #### L 500.2500, L100.0500 ####[facility] [address] [place], [address] Sodium [Moles/Vol] 140 mmol/L Normal 133-145 [facility] Comment on above: Order Comment: 211.1 Performed By: #### L 500.2500, L100.0500 ####[facility] [address] [place], [address] Urea nitrogen [Mass/Vol] 20 mg/dL High 4-19 [facility] Comment on above: Order Comment: 211.1 Performed By: #### L 500.2500, L100.0500 ####[facility] [address] [place], [address] CBC-Complete Blood Cnt No Di ffOrdered By: Katrina Berkowitz on 05-08-2025 Erythrocyte distribution width (RBC) [Ratio] 16.9 % High 11.6-14.6 [facility] Comment on above: Order Comment: 211.1 Performed By: #### L 500.2500, L100.0500 ####[facility] [address] [place], [address] Hematocrit (Bld) [Volume fraction] 36.6 % Low 37-47 [facility] Comment on above: Order Comment: 211.1 Performed By: #### L 500.2500, L100.0500 ####[facility] [address] [place] [address] Hemoglobin (Bld) [Mass/Vol] 11.3 g/dL Low 12.0-15.0 [facility] Comment on above: Order Comment: 211.1 Performed By: #### L 500.2500, L100.0500 ####[facility] [address] [place], [address] MCH (RBC) [Entitic mass] 29.5 pg Normal 27.0-32.0 [facility] Comment on above: Order Comment: .1 Performed By: #### L 500.2500, L100.0500 ####[facility] [address] [place], [address] MCV (RBC) [Entitic vol] 95.6 fL Normal 81-99 [facility] Comment on above: Order Comment: 211.1 Performed By: #### L 500.2500, L100.0500 ####[facility] [address] [place], [address] Platelets (Bld) [#/Vol] 280 10*3/uL Normal 150-450 [facility] Comment on above: Order Comment: 211.1 Performed By: #### L 500.2500, L100.0500 ####[facility] [address] [place], [address] RBC (Bld) [#/Vol] 3.83 10*6/uL Low 4.2-5.4 [facility] Comment on above: Order Comment: 211.1 Performed By: #### L 500.2500, L100.0500 ####[facility] [address] [place], [address] WBC (Bld) [#/Vol] 4.7 10*3/uL Normal 4.4-11.0 [facility] Comment on above: Order Comment: 211.1 Performed By: #### L 500.2500, L100.0500 ####[facility] [address] [place], [address] CBC-Complete Blood Cnt No Di ffon 05-08-2025 MCHC (RBC) [Mass/Vol] 30.9 g/dL Low 32-36 [facility] Comment on above: Order Comment: 211.1 Performed By: #### L 500.2500, L100.0500 ####[facility] [address] [place], [address] Platelet mean volume (Bld) [Entitic vol] 10.0 fL Normal 6.2-12.0 [facility] Comment on above: Order Comment: 211.1 Performed By: #### L 500.2500, L100.0500 ####[facility] [address] [place], [address] RDW SD 58.7 fl High 35.1-43.9 [facility] Comment on above: Order Comment: 211.1 Performed By: #### L 500.2500, L100.0500 ####[facility] [address] [place], [address] Erythrocyte distribution wid th standard deviationOrdered By: Katrina Berkowitz on 05-08-2025 Erythrocyte distribution width (RBC) [Ratio] 58.7 fl High 35.1-43.9 [facility] Potassium measurement (mass/ volume)Ordered By: Katrina Berkowitz on 05-08-2025 Potassium (Unsp spec) [Mass/Vol] 5.1 mmol/L 3.3-5.1 [facility] Anion gap in Serum or Plasma Ordered By: Katrina Berkowitz on 04-29-2025 Anion gap [Moles/Vol] 6 mmol/L 5-15 [facility] BUN/creatinine ratioOrdered By: Katrina Berkowitz on 04-29-2025 Urea nitrogen/Creatinine [Mass ratio] 21.7 mg/mg High 04-21 [facility] Basic Metabolic Profile (BMP )on 04-29-2025 BUN/CRE 21.7 RATIO High 04-21 [facility] Comment on above: Order Comment: . Performed By: #### L 501.9520, L500.2500, L503.0106, L100.0500, L501.5200, L506.1001 ####[facility] [address] [place], [address] Calcium [Mass/Vol] 9.1 mg/dL Normal 7.6-11.0 [facility] Comment on above: Order Comment: . Performed By: #### L 501.9520, L500.2500, L503.0106, L100.0500, L501.5200, L506.1001 ####[facility] [address] [place], [address] Chloride [Moles/Vol] 94 mmol/L Low 98-108 [facility] Comment on above: Order Comment: . Performed By: #### L 501.9520, L500.2500, L503.0106, L100.0500, L501.5200, L506.1001 ####[facility] [address] [place], [address] CO2 [Moles/Vol] 35.9 mmol/L High 21.0-32.0 [facility] Comment on above: Order Comment: . Performed By: #### L 501.9520, L500.2500, L503.0106, L100.0500, L501.5200, L506.1001 ####[facility] [address] [place], [address] Creatinine [Mass/Vol] 0.99 mg/dL Normal 0.70-1.20 [facility] Comment on above: Order Comment: 211. Performed By: #### L 501.9520, L500.2500, L503.0106, L100.0500, L501.5200, L506.1001 ####[facility] [address] [place], [address] GAP 6 Normal 5-15 [facility] Comment on above: Order Comment: . Performed By: #### L 501.9520, L500.2500, L503.0106, L100.0500, L501.5200, L506.1001 ####[facility] [address] [place], [address] GFR/1.73 sq M.predicted among non-blacks MDRD (S/P/Bld) [Vol rate/Area] 59 mL/min/{1.73_m2} Low >60 [facility] Comment on above: Order Comment: Result Comment: mL/m in/1.73m2 CKD-EPI Creatinine Equation (2020) Performed By: #### L 501.9520, L500.2500, L503.0106, L100.0500, L501.5200, L506.1001 ####[facility] [address] [place], [address] Glucose [Mass/Vol] 93 mg/dL Normal 70-99 [facility] Comment on above: Order Comment: . Performed By: #### L 501.9520, L500.2500, L503.0106, L100.0500, L501.5200, L506.1001 ####[facility] [address] [place], [address] Potassium [Moles/Vol] 4.9 mmol/L Normal 3.3-5.1 [facility] Comment on above: Order Comment: . Performed By: #### L 501.9520, L500.2500, L503.0106, L100.0500, L501.5200, L506.1001 ####[facility] [address] [place], [address] Sodium [Moles/Vol] 136 mmol/L Normal 133-145 [facility] Comment on above: Order Comment: 211.1 Performed By: #### L 501.9520, L500.2500, L503.0106, L100.0500, L501.5200, L506.1001 ####[facility] [address] [place], [place], [address] Urea nitrogen [Mass/Vol] 22 mg/dL High 4-19 [facility] Comment on above: Order Comment: 211.1 Performed By: #### L 501.9520, L500.2500, L503.0106, L100.0500, L501.5200, L506.1001 ####[facility] [address] [place], [place], [address] CBC-Complete Blood Cnt No Di ffon 04-29-2025 Erythrocyte distribution width (RBC) [Ratio] 15.8 % High 11.6-14.6 [facility] Comment on above: Order Comment: 211.1 Performed By: #### L 501.9520, L500.2500, L503.0106, L100.0500, L501.5200, L506.1001 ####[facility] [address] [place], [address] Hematocrit (Bld) [Volume fraction] 34.9 % Low 37-47 [facility] Comment on above: Order Comment: 211.1 Performed By: #### L 501.9520, L500.2500, L503.0106, L100.0500, L501.5200, L506.1001 ####[facility] [address] [place], [address] Hemoglobin (Bld) [Mass/Vol] 10.8 g/dL Low 12.0-15.0 [facility] Comment on above: Order Comment: 211.1 Performed By: #### L 501.9520, L500.2500, L503.0106, L100.0500, L501.5200, L506.1001 ####[facility] [address] [place], [address] MCH (RBC) [Entitic mass] 29.3 pg Normal 27.0-32.0 [facility] Comment on above: Order Comment: .1 Performed By: #### L 501.9520, L500.2500, L503.0106, L100.0500, L501.5200, L506.1001 ####[facility] [address] [place], [address] MCHC (RBC) [Mass/Vol] 30.9 g/dL Low 32-36 [facility] Comment on above: Order Comment: . Performed By: #### L 501.9520, L500.2500, L503.0106, L100.0500, L501.5200, L506.1001 ####[facility] [address] [place], [address] MCV (RBC) [Entitic vol] 94.6 fL Normal 81-99 [facility] Comment on above: Order Comment: . Performed By: #### L 501.9520, L500.2500, L503.0106, L100.0500, L501.5200, L506.1001 ####[facility] [address] [place], [address] Platelet mean volume (Bld) [Entitic vol] 10.4 fL Normal 6.2-12.0 [facility] Comment on above: Order Comment: .1 Performed By: #### L 501.9520, L500.2500, L503.0106, L100.0500, L501.5200, L506.1001 ####[facility] [address] [place], [address] Platelets (Bld) [#/Vol] 144 10*3/uL Low 150-450 [facility] Comment on above: Order Comment: 211.1 Performed By: #### L 501.9520, L500.2500, L503.0106, L100.0500, L501.5200, L506.1001 ####[facility] [address] [place], [address] RBC (Bld) [#/Vol] 3.69 10*6/uL Low 4.2-5.4 [facility] Comment on above: Order Comment: 211.1 Performed By: #### L 501.9520, L500.2500, L503.0106, L100.0500, L501.5200, L506.1001 ####[facility] [address] [place], [address] RDW SD 54.6 fl High 35.1-43.9 [facility] Comment on above: Order Comment: 211.1 Performed By: #### L 501.9520, L500.2500, L503.0106, L100.0500, L501.5200, L506.1001 ####[facility] [address] [place], [address] WBC (Bld) [#/Vol] 5.9 10*3/uL Normal 4.4-11.0 [facility] Comment on above: Order Comment: 211.1 Performed By: #### L 501.9520, L500.2500, L503.0106, L100.0500, L501.5200, L506.1001 ####[facility] [address] [place], [address] Carbon dioxide, total [Moles /volume] in Central venous bloodOrdered By: Katrina Berkowitz on 04-29-2025 CO2 [Moles/Vol] 35.9 mmol/L High 21.0-32.0 [facility] Chloride assayOrdered By: Hermann Berkowitz on 04-29-2025 Chloride [Moles/Vol] 94 mmol/L Low 98-108 [facility] Erythrocyte distribution wid th ratioOrdered By: Katrina Berkowitz on 04-29-2025 Erythrocyte distribution width (RBC) [Ratio] 15.8 % High 11.6-14.6 [facility] Erythrocyte distribution wid th standard deviationOrdered By: Katrina Berkowitz on 04-29-2025 Erythrocyte distribution width (RBC) [Ratio] 54.6 fl High 35.1-43.9 [facility] Glomerular filtration rate ( GFR) estimation/1.73 sq m using serum, plasma, or whole bOrdered By: Katrina Berkowitz on 04-29-2025 GFR/1.73 sq M.predicted among non-blacks MDRD (S/P/Bld) [Vol rate/Area] 59 mL/min/{1.73_m2} Low >60 [facility] Hematocrit Auto (Bld) [Volum e fraction]Ordered By: Katrina Berkowitz on 04-29-2025 Hematocrit (Bld) [Volume fraction] 34.9 % Low 37-47 [facility] Hemoglobin measurementOrdere d By: Katrina Berkowitz on 04-29-2025 Hemoglobin (Bld) [Mass/Vol] 10.8 g/dL Low 12.0-15.0 [facility] MCV (mean corpuscular volume ) determinationOrdered By: Katrina Berkowitz on 04-29-2025 MCV (RBC) [Entitic vol] 94.6 fL 81-99 [facility] Magnesiumon 04-29-2025 Magnesium [Mass/Vol] 1.8 mg/dL Normal 1.5-2.2 [facility] Comment on above: Order Comment: 211.1 Performed By: #### L 501.9520, L500.2500, L503.0106, L100.0500, L501.5200, L506.1001 ####[facility] [address] [place], [address] Magnesium measurement (mass/ volume)Ordered By: Katrina Berkowitz on 04-29-2025 Magnesium (Unsp spec) [Mass/Vol] 1.8 mg/dL 1.5-2.2 [facility] Mean corpuscular hemoglobin (MCH) determinationOrdered By: Katrina Berkowitz on 04-29-2025 MCH (RBC) [Entitic mass] 29.3 pg 27.0-32.0 [facility] Platelet countOrdered By: Hermann Berkowitz on 04-29-2025 Platelets (Bld) [#/Vol] 144 10*3/uL Low 150-450 [facility] Potassium measurement (mass/ volume)Ordered By: Katrina Berkowitz on 04-29-2025 Potassium (Unsp spec) [Mass/Vol] 4.9 mmol/L 3.3-5.1 [facility] RBC Auto (Bld) [#/Vol]Ordere d By: Katrina Berkowitz on 04-29-2025 RBC (Bld) [#/Vol] 3.69 10*6/uL Low 4.2-5.4 [facility] Serum creatinine measurement (mass/volume)Ordered By: Katrina Berkowitz on 04-29-2025 Creatinine [Mass/Vol] 0.99 mg/dL 0.70-1.20 [facility] Serum glucose measurement (m ass/volume)Ordered By: Katrina Berkowitz on 04-29-2025 Glucose [Mass/Vol] 93 mg/dL 70-99 [facility] Serum or plasma calcium lisa urement (mass/volume)Ordered By: Katrina Berkowitz on 04-29-2025 Calcium [Mass/Vol] 9.1 mg/dL 7.6-11.0 [facility] Serum or plasma urea nitroge n measurement (mass/volume)Ordered By: Katrina Berkowitz on 04-29-2025 Urea nitrogen [Mass/Vol] 22 mg/dL High 4-19 [facility] Sodium levelOrdered By: Lilli Berkowitz on 04-29-2025 Sodium [Moles/Vol] 136 mmol/L 133-145 [facility] TSH DL <= 0.005 mIU/L QnOrde red By: Katrina Berkowitz on 04-29-2025 TSH Qn 1.770 uIU/mL 0.300-4.200 [facility] Thyroid Stim Hormone (TSH)on 04-29-2025 TSH 1.770 uIU/mL Normal 0.300-4.200 [facility] Comment on above: Order Comment: 211.1 Performed By: #### L 501.9520, L500.2500, L503.0106, L100.0500, L501.5200, L506.1001 ####[facility] [address], [address] Vitamin B12on 04-29-2025 Cobalamin (Vitamin B12) [Mass/Vol] 394 pg/mL Normal 180-914 [facility] Comment on above: Order Comment: 211.1 Performed By: #### L 501.9520, L500.2500, L503.0106, L100.0500, L501.5200, L506.1001 ####[facility] [address] [place], [address] Vitamin B12 ser/plasOrdered By: Katrina Berkowitz on 04-29-2025 Cobalamin (Vitamin B12) [Mass/Vol] 394 pg/mL 180-914 [facility] Vitamin D,25 Hydroxyon 04-29 Vitamin D 25-OH 36.5 ng/mL Normal 30-100 [facility] Comment on above: Order Comment: 211.1 Result Comment: Lori min D StatusDeficiency: <20 ng/mL (50nmol/L)Insufficiency: 20-30 ng/mL (50-75 nmol/L)Sufficiency: 30-100 ng/mL (75-250 nmol/L)Toxicity: >100 ng/mL (>250 nmol/L) Performed By: #### L 501.9520, L500.2500, L503.0106, L100.0500, L501.5200, L506.1001 ####[facility] [address], [address] White blood cell (WBC) count Ordered By: Katrina Berkowitz on 04-29-2025 WBC (Bld) [#/Vol] 5.9 10*3/uL 4.4-11.0 [facility] Anion gap in Serum or Plasma Ordered By: Katrina Berkowitz on 04-24-2025 Anion gap [Moles/Vol] 7 mmol/L 5-15 [facility] BUN/creatinine ratioOrdered By: Katrina Berkowitz on 04-24-2025 Urea nitrogen/Creatinine [Mass ratio] 21.8 mg/mg High 04-21 [facility] Basic Metabolic Profile (BMP )on 04-24-2025 BUN/CRE 21.8 RATIO High 04-21 [facility] Comment on above: Order Comment: 211.1 Performed By: #### L 501.5200, L500.2500, L100.0500 ####[facility] [address] [place], [address] Calcium [Mass/Vol] 9.0 mg/dL Normal 7.6-11.0 [facility] Comment on above: Order Comment: 211.1 Performed By: #### L 501.5200, L500.2500, L100.0500 ####[facility] [address] [place], [address] Chloride [Moles/Vol] 91 mmol/L Low 98-108 [facility] Comment on above: Order Comment: 211.1 Performed By: #### L 501.5200, L500.2500, L100.0500 ####[facility] [address] [place], [address] CO2 [Moles/Vol] 35.4 mmol/L High 21.0-32.0 [facility] Comment on above: Order Comment: 211.1 Performed By: #### L 501.5200, L500.2500, L100.0500 ####[facility] [address] [place], [address] Creatinine [Mass/Vol] 1.41 mg/dL High 0.70-1.20 [facility] Comment on above: Order Comment: 211.1 Performed By: #### L 501.5200, L500.2500, L100.0500 ####[facility] [address] [place], [address] GAP 7 Normal 5-15 [facility] Comment on above: Order Comment: 211.1 Performed By: #### L 501.5200, L500.2500, L100.0500 ####[facility] [address] [place], [address] GFR/1.73 sq M.predicted among non-blacks MDRD (S/P/Bld) [Vol rate/Area] 39 mL/min/{1.73_m2} Low >60 [facility] Comment on above: Order Comment: 211.1 Result Comment: mL/m in/1.73m2 CKD-EPI Creatinine Equation (2020) Performed By: #### L 501.5200, L500.2500, L100.0500 ####[facility] [address] [place], [address] Glucose [Mass/Vol] 100 mg/dL High 70-99 [facility] Comment on above: Order Comment: 211.1 Performed By: #### L 501.5200, L500.2500, L100.0500 ####[facility] [address] [place], [address] Potassium [Moles/Vol] 4.4 mmol/L Normal 3.3-5.1 [facility] Comment on above: Order Comment: 211.1 Performed By: #### L 501.5200, L500.2500, L100.0500 ####[facility] [address] [place], [address] Sodium [Moles/Vol] 134 mmol/L Normal 133-145 [facility] Comment on above: Order Comment: 211.1 Performed By: #### L 501.5200, L500.2500, L100.0500 ####[facility] [address] [place], [address] Urea nitrogen [Mass/Vol] 31 mg/dL High 4-19 [facility] Comment on above: Order Comment: 211.1 Performed By: #### L 501.5200, L500.2500, L100.0500 ####[facility] [address] [place], [address] CBC-Complete Blood Cnt No Di ffon 04-24-2025 Erythrocyte distribution width (RBC) [Ratio] 15.3 % High 11.6-14.6 [facility] Comment on above: Order Comment: 211.1 Performed By: #### L 501.5200, L500.2500, L100.0500 ####[facility] [address] [place], [address] Hematocrit (Bld) [Volume fraction] 32.9 % Low 37-47 [facility] Comment on above: Order Comment: 211.1 Performed By: #### L 501.5200, L500.2500, L100.0500 ####[facility] [address] [place], [address] Hemoglobin (Bld) [Mass/Vol] 10.7 g/dL Low 12.0-15.0 [facility] Comment on above: Order Comment: 211.1 Performed By: #### L 501.5200, L500.2500, L100.0500 ####[facility] [address] [place], [address] MCH (RBC) [Entitic mass] 29.8 pg Normal 27.0-32.0 [facility] Comment on above: Order Comment: 211.1 Performed By: #### L 501.5200, L500.2500, L100.0500 ####[facility] [address] [place], [address] MCHC (RBC) [Mass/Vol] 32.5 g/dL Normal 32-36 [facility] Comment on above: Order Comment: 211.1 Performed By: #### L 501.5200, L500.2500, L100.0500 ####[facility] [address] [place], [address] MCV (RBC) [Entitic vol] 91.6 fL Normal 81-99 [facility] Comment on above: Order Comment: 211.1 Performed By: #### L 501.5200, L500.2500, L100.0500 ####[facility] [address] [place], [address] Platelet mean volume (Bld) [Entitic vol] 10.8 fL Normal 6.2-12.0 [facility] Comment on above: Order Comment: 211.1 Performed By: #### L 501.5200, L500.2500, L100.0500 ####[facility] [address] [place], [address] Platelets (Bld) [#/Vol] 124 10*3/uL Low 150-450 [facility] Comment on above: Order Comment: 211.1 Performed By: #### L 501.5200, L500.2500, L100.0500 ####[facility] [address] [place], [address] RBC (Bld) [#/Vol] 3.59 10*6/uL Low 4.2-5.4 [facility] Comment on above: Order Comment: 211.1 Performed By: #### L 501.5200, L500.2500, L100.0500 ####[facility] [address] [place], [address] RDW SD 49.9 fl High 35.1-43.9 [facility] Comment on above: Order Comment: 211.1 Performed By: #### L 501.5200, L500.2500, L100.0500 ####[facility] [address] [place], [address] WBC (Bld) [#/Vol] 7.0 10*3/uL Normal 4.4-11.0 [facility] Comment on above: Order Comment: 211.1 Performed By: #### L 501.5200, L500.2500, L100.0500 ####[facility] [address] [place], [place], [address] Carbon dioxide, total [Moles /volume] in Central venous bloodOrdered By: Katrina Berkowitz on 04-24-2025 CO2 [Moles/Vol] 35.4 mmol/L High 21.0-32.0 [facility] Chloride assayOrdered By: Hermann Berkowitz on 04-24-2025 Chloride [Moles/Vol] 91 mmol/L Low 98-108 [facility] Culture, Blood (WB)on 2024 CUB Blood cultures x2, f rom two different sites No growth in 5 days. Normal [facility] Comment on above: Performed By: #### L 100.0100, M200.1000, L503.6005, L501.3620 ####[facility] [address] [place], [place], [address] Erythrocyte distribution wid th ratioOrdered By: Katrina Berkowitz on 04-24-2025 Erythrocyte distribution width (RBC) [Ratio] 15.3 % High 11.6-14.6 [facility] Erythrocyte distribution wid th standard deviationOrdered By: Katrina Berkowitz on 04-24-2025 Erythrocyte distribution width (RBC) [Ratio] 49.9 fl High 35.1-43.9 [facility] Glomerular filtration rate ( GFR) estimation/1.73 sq m using serum, plasma, or whole bOrdered By: Katrina Berkowitz on 04-24-2025 GFR/1.73 sq M.predicted among non-blacks MDRD (S/P/Bld) [Vol rate/Area] 39 mL/min/{1.73_m2} Low >60 [facility] Hematocrit Auto (Bld) [Volum e fraction]Ordered By: Katrina Berkowitz on 04-24-2025 Hematocrit (Bld) [Volume fraction] 32.9 % Low 37-47 [facility] Hemoglobin measurementOrdere d By: Katrina Berkowitz on 04-24-2025 Hemoglobin (Bld) [Mass/Vol] 10.7 g/dL Low 12.0-15.0 [facility] MCV (mean corpuscular volume ) determinationOrdered By: Katrina Berkowitz on 04-24-2025 MCV (RBC) [Entitic vol] 91.6 fL 81-99 [facility] Magnesiumon 04-24-2025 Magnesium [Mass/Vol] 1.3 mg/dL Low 1.5-2.2 [facility] Comment on above: Order Comment: 211.1 Performed By: #### L 501.5200, L500.2500, L100.0500 ####[facility] [address] [place], [place], [id number] Magnesium measurement (mass/ volume)Ordered By: Katrina Berkowitz on 04-24-2025 Magnesium (Unsp spec) [Mass/Vol] 1.3 mg/dL Low 1.5-2.2 [facility] Mean corpuscular hemoglobin (MCH) determinationOrdered By: Katrina Berkowitz on 04-24-2025 MCH (RBC) [Entitic mass] 29.8 pg 27.0-32.0 [facility] Platelet countOrdered By: Hermann Berkowitz on 04-24-2025 Platelets (Bld) [#/Vol] 124 10*3/uL Low 150-450 [facility] Potassium measurement (mass/ volume)Ordered By: Katrina Berkowitz on 04-24-2025 Potassium (Unsp spec) [Mass/Vol] 4.4 mmol/L 3.3-5.1 [facility] RBC Auto (Bld) [#/Vol]Ordere d By: Katrina Berkowitz on 04-24-2025 RBC (Bld) [#/Vol] 3.59 10*6/uL Low 4.2-5.4 [facility] Serum creatinine measurement (mass/volume)Ordered By: Katrina Berkowitz on 04-24-2025 Creatinine [Mass/Vol] 1.41 mg/dL High 0.70-1.20 [facility] Serum glucose measurement (m ass/volume)Ordered By: Katrina Berkowitz on 04-24-2025 Glucose [Mass/Vol] 100 mg/dL High 70-99 [facility] Serum or plasma calcium lisa urement (mass/volume)Ordered By: Katrina Berkowitz on 04-24-2025 Calcium [Mass/Vol] 9.0 mg/dL 7.6-11.0 [facility] Serum or plasma urea nitroge n measurement (mass/volume)Ordered By: Katrina Berkowitz on 04-24-2025 Urea nitrogen [Mass/Vol] 31 mg/dL High 4-19 [facility] Sodium levelOrdered By: Lilli Berkowitz on 04-24-2025 Sodium [Moles/Vol] 134 mmol/L 133-145 [facility] White blood cell (WBC) count Ordered By: Katrina Berkowitz on 04-24-2025 WBC (Bld) [#/Vol] 7.0 10*3/uL 4.4-11.0 [facility] Absolute lymphocyte countOrd ered By: Garfield Pierson on 04-22-2025 Lymphocytes Auto (Unsp spec) [#/Vol] 1.13 10*3/uL 0.83-4.51 [facility] Anion gap in Serum or Plasma Ordered By: Garfield Pierson on 04-22-2025 Anion gap [Moles/Vol] 6 mmol/L 5-15 [facility] Automated lymphocyte count a s percentage of total leukocytesOrdered By: Garfield Pierson on 04-22-2025 Lymphocytes/100 WBC Auto (Unsp spec) 18.2 % Low 19-41 [facility] BUN/creatinine ratioOrdered By: Garfield Pierson on 04-22-2025 Urea nitrogen/Creatinine [Mass ratio] 25.4 mg/mg High 04-21 [facility] Basic Metabolic Profile (BMP )on 04-22-2025 BUN/CRE 25.4 RATIO High 04-21 [facility] Comment on above: Performed By: #### L 100.0100, L500.2500 ####[facility] [address] [place], [address] Calcium [Mass/Vol] 9.7 mg/dL Normal 7.6-11.0 [facility] Comment on above: Performed By: #### L 100.0100, L500.2500 ####[facility] [address] [place], [address] Chloride [Moles/Vol] 88 mmol/L Low 98-108 [facility] Comment on above: Performed By: #### L 100.0100, L500.2500 ####[facility] [address] [place], [address] CO2 [Moles/Vol] 40.0 mmol/L High 21.0-32.0 [facility] Comment on above: Performed By: #### L 100.0100, L500.2500 ####[facility] [address] [place], [address] Creatinine [Mass/Vol] 1.12 mg/dL Normal 0.70-1.20 [facility] Comment on above: Performed By: #### L 100.0100, L500.2500 ####[facility] [address] [place], [address] ECRCL 54.29 ml/min Normal 50-250 [facility] Comment on above: Performed By: #### L 100.0100, L500.2500 ####[facility] [address] [place], [address] GAP 6 Normal 5-15 [facility] Comment on above: Performed By: #### L 100.0100, L500.2500 ####[facility] [address] [place], [address] GFR/1.73 sq M.predicted among non-blacks MDRD (S/P/Bld) [Vol rate/Area] 51 mL/min/{1.73_m2} Low >60 [facility] Comment on above: Result Comment: mL/m in/1.73m2 CKD-EPI Creatinine Equation (2020) Performed By: #### L 100.0100, L500.2500 ####[facility] [address] [place], [address] Glucose [Mass/Vol] 102 mg/dL High 70-99 [facility] Comment on above: Performed By: #### L 100.0100, L500.2500 ####[facility] [address] [place], [address] Potassium [Moles/Vol] 4.7 mmol/L Normal 3.3-5.1 [facility] Comment on above: Performed By: #### L 100.0100, L500.2500 ####[facility] [address] [place], [address] Sodium [Moles/Vol] 134 mmol/L Normal 133-145 [facility] Comment on above: Performed By: #### L 100.0100, L500.2500 ####[facility] [address] [place], [address] Urea nitrogen [Mass/Vol] 28 mg/dL High 4-19 [facility] Comment on above: Performed By: #### L 100.0100, L500.2500 ####[facility] [address] [place], [address] Basophil percentageOrdered B y: Garfield Pierson on 04-22-2025 Basophils/100 WBC (Bld) 0.8 % 0-1 [facility] CBC W/Diff, Automatedon 10- Absolute Lymph 1.13 X10 3/uL Normal 0.83-4.51 [facility] Comment on above: Performed By: #### L 100.0100, L500.2500 ####[facility] [address] [place], [address] Absolute Neut 4.2 X10 3/uL Normal 2.0-7.7 [facility] Comment on above: Performed By: #### L 100.0100, L500.2500 ####[facility] [address] [place], [address] Basophils/100 WBC (Bld) 0.8 % Normal 0-1 [facility] Comment on above: Performed By: #### L 100.0100, L500.2500 ####[facility] [address] [place], [address] Eosinophils/100 WBC (Bld) 3.7 % Normal 0-5 [facility] Comment on above: Performed By: #### L 100.0100, L500.2500 ####[facility] [address] [place], [address] Erythrocyte distribution width (RBC) [Ratio] 14.6 % Normal 11.6-14.6 [facility] Comment on above: Performed By: #### L 100.0100, L500.2500 ####[facility] [address] [place], [address] Hematocrit (Bld) [Volume fraction] 38.2 % Normal 37-47 [facility] Comment on above: Performed By: #### L 100.0100, L500.2500 ####[facility] [address] [place], [address] Hemoglobin (Bld) [Mass/Vol] 12.3 g/dL Normal 12.0-15.0 [facility] Comment on above: Performed By: #### L 100.0100, L500.2500 ####[facility] [address] [place], [address] IG% 1.800 High 0.0-0.9 [facility] Comment on above: Result Comment: IG% - Immature Granulocytes (promyelocytes, myelocytes andmetamyelocytes) > 1% indicates that a LEFT SHIFT is Present. Performed By: #### L 100.0100, L500.2500 ####[facility] [address] [place], [address] Lymphocytes/100 WBC (Bld) 18.2 % Low 19-41 [facility] Comment on above: Performed By: #### L 100.0100, L500.2500 ####[facility] [address] [place], [address] MCH (RBC) [Entitic mass] 29.2 pg Normal 27.0-32.0 [facility] Comment on above: Performed By: #### L 100.0100, L500.2500 ####[facility] [address] [place], [address] MCHC (RBC) [Mass/Vol] 32.2 g/dL Normal 32-36 [facility] Comment on above: Performed By: #### L 100.0100, L500.2500 ####[facility] [address] [place], [address] MCV (RBC) [Entitic vol] 90.7 fL Normal 81-[address] [facility] Comment on above: Performed By: #### L 100.0100, L500.2500 ####[facility] [address] [place], [address] Monocytes/100 WBC (Bld) 8.7 % Normal 0-[address] [facility] Comment on above: Performed By: #### L 100.0100, L500.2500 ####[facility] [address] [place], [address] Neutrophils/100 WBC (Bld) 66.8 % Normal 47-70 [facility] Comment on above: Performed By: #### L 100.0100, L500.2500 ####[facility] [address] [place], [address] Nucleated RBC (Bld) [#/Vol] 0 10*3/uL Normal 0-5 [facility] Comment on above: Performed By: #### L 100.0100, L500.2500 ####[facility] [address] [place], [address] Platelet mean volume (Bld) [Entitic vol] 10.6 fL Normal 6.2-12.0 [facility] Comment on above: Performed By: #### L 100.0100, L500.2500 ####[facility] [address] [place], [address] Platelets (Bld) [#/Vol] 115 10*3/uL Low 150-450 [facility] Comment on above: Performed By: #### L 100.0100, L500.2500 ####[facility] [address] [place], [address] RBC (Bld) [#/Vol] 4.21 10*6/uL Normal 4.2-5.4 [facility] Comment on above: Performed By: #### L 100.0100, L500.2500 ####[facility] [address] [place], [address] RDW SD 47.8 fl High 35.1-43.9 [facility] Comment on above: Performed By: #### L 100.0100, L500.2500 ####[facility] [address] [place], [address] WBC (Bld) [#/Vol] 6.2 10*3/uL Normal 4.4-11.0 [facility] Comment on above: Performed By: #### L 100.0100, L500.2500 ####[facility] [address] [place], [address] Carbon dioxide, total [Moles /volume] in Central venous bloodOrdered By: Garfield Pierson on 04-22-2025 CO2 [Moles/Vol] 40.0 mmol/L High 21.0-32.0 [facility] Chloride assayOrdered By: Nina Pierson on 04-22-2025 Chloride [Moles/Vol] 88 mmol/L Low 98-108 [facility] Eosinophil percentageOrdered By: Garfield Pierson on 04-22-2025 Eosinophils/100 WBC (Bld) 3.7 % 0-5 [facility] Erythrocyte distribution wid th ratioOrdered By: Garfield Pierson on 04-22-2025 Erythrocyte distribution width (RBC) [Ratio] 14.6 % 11.6-14.6 [facility] Erythrocyte distribution wid th standard deviationOrdered By: Garfield Pierson on 04-22-2025 Erythrocyte distribution width (RBC) [Ratio] 47.8 fl High 35.1-43.9 [facility] Glomerular filtration rate ( GFR) estimation/1.73 sq m using serum, plasma, or whole bOrdered By: Garfield Pierson on 04-22-2025 GFR/1.73 sq M.predicted among non-blacks MDRD (S/P/Bld) [Vol rate/Area] 51 mL/min/{1.73_m2} Low >60 [facility] Hematocrit Auto (Bld) [Volum e fraction]Ordered By: Garfield Pierson on 04-22-2025 Hematocrit (Bld) [Volume fraction] 38.2 % 37-47 [facility] Hemoglobin measurementOrdere d By: Garfield Pierson on 04-22-2025 Hemoglobin (Bld) [Mass/Vol] 12.3 g/dL 12.0-15.0 [facility] Immature granulocytes/100 WB C Auto (Bld)Ordered By: Garfield Pierson on 04-22-2025 Immature granulocytes/100 WBC (Bld) 1.800 % High 0.0-0.9 [facility] MCV (mean corpuscular volume ) determinationOrdered By: Garfield Pierson on 04-22-2025 MCV (RBC) [Entitic vol] 90.7 fL 81-99 [facility] Mean corpuscular hemoglobin (MCH) determinationOrdered By: Garfield Pierson on 04-22-2025 MCH (RBC) [Entitic mass] 29.2 pg 27.0-32.0 [facility] Monocyte percentageOrdered B y: Garfield Pierson on 04-22-2025 Monocytes/100 WBC (Bld) 8.7 % 0-10 [facility] Neutrophil percentageOrdered By: Garfield Pierson on 04-22-2025 Neutrophils/100 WBC (Bld) 66.8 % 47-70 [facility] Platelet countOrdered By: Nina Pierson on 04-22-2025 Platelets (Bld) [#/Vol] 115 10*3/uL Low 150-450 [facility] Potassium measurement (mass/ volume)Ordered By: Garfield Pierson on 04-22-2025 Potassium (Unsp spec) [Mass/Vol] 4.7 mmol/L 3.3-5.1 [facility] RBC Auto (Bld) [#/Vol]Ordere d By: Garfield Pierson on 04-22-2025 RBC (Bld) [#/Vol] 4.21 10*6/uL 4.2-5.4 [facility] Serum creatinine measurement (mass/volume)Ordered By: Garfield Pierson on 04-22-2025 Creatinine [Mass/Vol] 1.12 mg/dL 0.70-1.20 [facility] Serum glucose measurement (m ass/volume)Ordered By: Garfield Pierson on 04-22-2025 Glucose [Mass/Vol] 102 mg/dL High 70-99 [facility] Serum or plasma calcium lisa urement (mass/volume)Ordered By: Garfield Pierson on 04-22-2025 Calcium [Mass/Vol] 9.7 mg/dL 7.6-11.0 [facility] Serum or plasma urea nitroge n measurement (mass/volume)Ordered By: Garfield Pierson on 04-22-2025 Urea nitrogen [Mass/Vol] 28 mg/dL High 4-19 [facility] Sodium levelOrdered By: Asha Pierson on 04-22-2025 Sodium [Moles/Vol] 134 mmol/L 133-145 [facility] Urine Cultureon 04-22-2025 [facility] Mixed Gram Pos Gram Neg Org [place] Count 11,000-25,000 [facility]IX[facility] Mixed contaminants. Submit a new specimen if indicated. Normal [facility] Comment on above: Performed By: #### M 300.4500, M100.2200, M8200.1000, M100.678, L8200.1000, M300.4600, L400.0001 ####[facility] [address] [place], [address] White blood cell (WBC) count Ordered By: Garfield Pierson on 04-22-2025 WBC (Bld) [#/Vol] 6.2 10*3/uL 4.4-11.0 [facility] Basic Metabolic Profile (BMP )on 04-21-2025 BUN/CRE 27.3 RATIO High 04-21 [facility] Comment on above: Performed By: #### L 100.0100, L500.2500 ####[facility] [address] [place], [address] Calcium [Mass/Vol] 9.0 mg/dL Normal 7.6-11.0 [facility] Comment on above: Performed By: #### L 100.0100, L500.2500 ####[facility] [address] [place], [address] Chloride [Moles/Vol] 85 mmol/L Low 98-108 [facility] Comment on above: Performed By: #### L 100.0100, L500.2500 ####[facility] [address] [place], [address] CO2 [Moles/Vol] 37.5 mmol/L High 21.0-32.0 [facility] Comment on above: Performed By: #### L 100.0100, L500.2500 ####[facility] [address] [place], [address] Creatinine [Mass/Vol] 1.20 mg/dL Normal 0.70-1.20 [facility] Comment on above: Performed By: #### L 100.0100, L500.2500 ####[facility] [address] [place], [address] ECRCL 50.67 ml/min Normal 50-250 [facility] Comment on above: Performed By: #### L 100.0100, L500.2500 ####[facility] [address] [place], [address] GAP 5 Normal 5-15 [facility] Comment on above: Performed By: #### L 100.0100, L500.2500 ####[facility] [address] [place], [address] GFR/1.73 sq M.predicted among non-blacks MDRD (S/P/Bld) [Vol rate/Area] 47 mL/min/{1.73_m2} Low >60 [facility] Comment on above: Result Comment: mL/m in/1.73m2 CKD-EPI Creatinine Equation (2020) Performed By: #### L 100.0100, L500.2500 ####[facility] [address] [place], [address] Glucose [Mass/Vol] 130 mg/dL High 70-99 [facility] Comment on above: Performed By: #### L 100.0100, L500.2500 ####[facility] [address] [place], [address] Potassium [Moles/Vol] 4.2 mmol/L Normal 3.3-5.1 [facility] Comment on above: Performed By: #### L 100.0100, L500.2500 ####[facility] [address] [place], [address] Sodium [Moles/Vol] 127 mmol/L Low 133-145 [facility] Comment on above: Performed By: #### L 100.0100, L500.2500 ####[facility] [address] [place], [address] Urea nitrogen [Mass/Vol] 33 mg/dL High 4-19 [facility] Comment on above: Performed By: #### L 100.0100, L500.2500 ####[facility] [address] [place], [address] CBC W/Diff, Automatedon 10-2 0-2025 Absolute Lymph 1.01 X10 3/uL Normal 0.83-4.51 [facility] Comment on above: Performed By: #### L 100.0100, L500.2500 ####[facility] [address] [place], [address] Absolute Neut 5.7 X10 3/uL Normal 2.0-7.7 [facility] Comment on above: Performed By: #### L 100.0100, L500.2500 ####[facility] [address] [place], [address] Basophils/100 WBC (Bld) 0.5 % Normal 0-1 [facility] Comment on above: Performed By: #### L 100.0100, L500.2500 ####[facility] [address] [place], [address] Eosinophils/100 WBC (Bld) 2.6 % Normal 0-5 [facility] Comment on above: Performed By: #### L 100.0100, L500.2500 ####[facility] [address] [place], [address] Erythrocyte distribution width (RBC) [Ratio] 14.6 % Normal 11.6-14.6 [facility] Comment on above: Performed By: #### L 100.0100, L500.2500 ####[facility] [address] [place], [address] Hematocrit (Bld) [Volume fraction] 35.2 % Low 37-47 [facility] Comment on above: Performed By: #### L 100.0100, L500.2500 ####[facility] [address] [place], [address] Hemoglobin (Bld) [Mass/Vol] 11.5 g/dL Low 12.0-15.0 [facility] Comment on above: Performed By: #### L 100.0100, L500.2500 ####[facility] [address] [place], [address] IG% 1.100 High 0.0-0.9 [facility] Comment on above: Result Comment: IG% - Immature Granulocytes (promyelocytes, myelocytes andmetamyelocytes) > 1% indicates that a LEFT SHIFT is Present. Performed By: #### L 100.0100, L500.2500 ####[facility] [address] [place], [address] Lymphocytes/100 WBC (Bld) 13.3 % Low 19-41 [facility] Comment on above: Performed By: #### L 100.0100, L500.2500 ####[facility] [address] [place], [address] MCH (RBC) [Entitic mass] 29.4 pg Normal 27.0-32.0 [facility] Comment on above: Performed By: #### L 100.0100, L500.2500 ####[facility] [address] [place], [address] MCHC (RBC) [Mass/Vol] 32.7 g/dL Normal 32-36 [facility] Comment on above: Performed By: #### L 100.0100, L500.2500 ####[facility] [address] [place], [address] MCV (RBC) [Entitic vol] 90.0 fL Normal 81-[address] [facility] Comment on above: Performed By: #### L 100.0100, L500.2500 ####[facility] [address] [place], [address] Monocytes/100 WBC (Bld) 8.1 % Normal 0-10 [facility] Comment on above: Performed By: #### L 100.0100, L500.2500 ####[facility] [address] [place], [address] Neutrophils/100 WBC (Bld) 74.4 % High 47-70 [facility] Comment on above: Performed By: #### L 100.0100, L500.2500 ####[facility] [address] [place], [address] Nucleated RBC (Bld) [#/Vol] 0 10*3/uL Normal 0-5 [facility] Comment on above: Performed By: #### L 100.0100, L500.2500 ####[facility] [address] [place], [address] Platelet mean volume (Bld) [Entitic vol] 10.7 fL Normal 6.2-12.0 [facility] Comment on above: Performed By: #### L 100.0100, L500.2500 ####[facility] [address] [place], [address] Platelets (Bld) [#/Vol] 113 10*3/uL Low 150-450 [facility] Comment on above: Performed By: #### L 100.0100, L500.2500 ####[facility] [address] [place], [address] RBC (Bld) [#/Vol] 3.91 10*6/uL Low 4.2-5.4 [facility] Comment on above: Performed By: #### L 100.0100, L500.2500 ####[facility] [address] [place], [address] RDW SD 46.6 fl High 35.1-43.9 [facility] Comment on above: Performed By: #### L 100.0100, L500.2500 ####[facility] [address] [place], [address] WBC (Bld) [#/Vol] 7.6 10*3/uL Normal 4.4-11.0 [facility] Comment on above: Performed By: #### L 100.0100, L500.2500 ####[facility] [address] [place], [address] Consultation - Nephrologyon 04-21-2025 Consultation - Nephrology Normal [facility] Venous Duplex US - Chase Extre mon 04-21-2025 Venous Duplex US - Chase Extrem Normal [facility] Venous duplex ultrasound rep ortOrdered By: Dm Fong on 04-21-2025 US Vein [facility] Other Phone: US Vein [facility] Other Phone: Amphetamine detection with 1 000 ng/mL as cutoffOrdered By: Garfield Pierson on 04-20-2025 Amphetamines Screen method >1000 ng/mL Ql (U) Negative < 200 ng/mL [facility] Basic Metabolic Profile (BMP )on 04-20-2025 BUN/CRE 29.4 RATIO High 04-21 [facility] Comment on above: Performed By: #### L 100.0100, L500.2500 ####[facility] [address] [place], [address] Calcium [Mass/Vol] 9.0 mg/dL Normal 7.6-11.0 [facility] Comment on above: Performed By: #### L 100.0100, L500.2500 ####[facility] [address] [place], [address] Chloride [Moles/Vol] 83 mmol/L Low 98-108 [facility] Comment on above: Performed By: #### L 100.0100, L500.2500 ####[facility] [address] [place], [address] CO2 [Moles/Vol] 36.7 mmol/L High 21.0-32.0 [facility] Comment on above: Performed By: #### L 100.0100, L500.2500 ####[facility] [address] [place], [address] Creatinine [Mass/Vol] 1.31 mg/dL High 0.70-1.20 [facility] Comment on above: Performed By: #### L 100.0100, L500.2500 ####[facility] [address] [place], [address] ECRCL 46.46 ml/min Low 50-250 [facility] Comment on above: Performed By: #### L 100.0100, L500.2500 ####[facility] [address] [place], [address] GAP 5 Normal 5-15 [facility] Comment on above: Performed By: #### L 100.0100, L500.2500 ####[facility] [address] [place], [address] GFR/1.73 sq M.predicted among non-blacks MDRD (S/P/Bld) [Vol rate/Area] 42 mL/min/{1.73_m2} Low >60 [facility] Comment on above: Result Comment: mL/m in/1.73m2 CKD-EPI Creatinine Equation (2020) Performed By: #### L 100.0100, L500.2500 ####[facility] [address] [place], [address] Glucose [Mass/Vol] 113 mg/dL High 70-99 [facility] Comment on above: Performed By: #### L 100.0100, L500.2500 ####[facility] [address] [place], [address] Potassium [Moles/Vol] 4.0 mmol/L Normal 3.3-5.1 [facility] Comment on above: Performed By: #### L 100.0100, L500.2500 ####[facility] [address] [place], [address] Sodium [Moles/Vol] 125 mmol/L Low 133-145 [facility] Comment on above: Performed By: #### L 100.0100, L500.2500 ####[facility] [address] [place], [address] Urea nitrogen [Mass/Vol] 39 mg/dL High - [facility] Comment on above: Performed By: #### L 100.0100, L500.2500 ####[facility] [address] [place], [address] Bilirubin Test strip Ql (U)O rdered By: Garfield Pierson on 04-20-2025 Bilirubin Ql (U) Negative Negative [facility] CBC W/Diff, Automatedon 04-02 Absolute Lymph 1.11 X10 3/uL Normal 0.83-4.51 [facility] Comment on above: Performed By: #### L 100.0100, L500.2500 ####[facility] [address] [place], [address] Absolute Neut 5.5 X10 3/uL Normal 2.0-7.7 [facility] Comment on above: Performed By: #### L 100.0100, L500.2500 ####[facility] [address] [place], [address] Basophils/100 WBC (Bld) 0.4 % Normal 0-1 [facility] Comment on above: Performed By: #### L 100.0100, L500.2500 ####[facility] [address] [place], [address] Eosinophils/100 WBC (Bld) 2.9 % Normal 0-5 [facility] Comment on above: Performed By: #### L 100.0100, L500.2500 ####[facility] [address] [place], [address] Erythrocyte distribution width (RBC) [Ratio] 14.5 % Normal 11.6-14.6 [facility] Comment on above: Performed By: #### L 100.0100, L500.2500 ####[facility] [address] [place], [address] Hematocrit (Bld) [Volume fraction] 34.4 % Low 37-47 [facility] Comment on above: Performed By: #### L 100.0100, L500.2500 ####[facility] [address] [place], [address] Hemoglobin (Bld) [Mass/Vol] 11.1 g/dL Low 12.0-15.0 [facility] Comment on above: Performed By: #### L 100.0100, L500.2500 ####[facility] [address] [place], [address] IG% 0.900 Normal 0.0-0.9 [facility] Comment on above: Result Comment: IG% - Immature Granulocytes (promyelocytes, myelocytes andmetamyelocytes) > 1% indicates that a LEFT SHIFT is Present. Performed By: #### L 100.0100, L500.2500 ####[facility] [address] [place], [address] Lymphocytes/100 WBC (Bld) 14.8 % Low 19-41 [facility] Comment on above: Performed By: #### L 100.0100, L500.2500 ####[facility] [address] [place], [address] MCH (RBC) [Entitic mass] 29.1 pg Normal 27.0-32.0 [facility] Comment on above: Performed By: #### L 100.0100, L500.2500 ####[facility] [address] [place], [address] MCHC (RBC) [Mass/Vol] 32.3 g/dL Normal 32-36 [facility] Comment on above: Performed By: #### L 100.0100, L500.2500 ####[facility] [address] [place], [address] MCV (RBC) [Entitic vol] 90.3 fL Normal 81-99 [facility] Comment on above: Performed By: #### L 100.0100, L500.2500 ####[facility] [address] [place], [address] Monocytes/100 WBC (Bld) 7.7 % Normal 0-[address] [facility] Comment on above: Performed By: #### L 100.0100, L500.2500 ####[facility] [address] [place], [address] Neutrophils/100 WBC (Bld) 73.3 % High 47-70 [facility] Comment on above: Performed By: #### L 100.0100, L500.2500 ####[facility] [address] [place], [address] Nucleated RBC (Bld) [#/Vol] 0 10*3/uL Normal 0-5 [facility] Comment on above: Performed By: #### L 100.0100, L500.2500 ####[facility] [address] [place], [address] Platelet mean volume (Bld) [Entitic vol] 10.5 fL Normal 6.2-12.0 [facility] Comment on above: Performed By: #### L 100.0100, L500.2500 ####[facility] [address] [place], [address] Platelets (Bld) [#/Vol] 115 10*3/uL Low 150-450 [facility] Comment on above: Performed By: #### L 100.0100, L500.2500 ####[facility] [address] [place], [address] RBC (Bld) [#/Vol] 3.81 10*6/uL Low 4.2-5.4 [facility] Comment on above: Performed By: #### L 100.0100, L500.2500 ####[facility] [address] [place], [address] RDW SD 47.6 fl High 35.1-43.9 [facility] Comment on above: Performed By: #### L 100.0100, L500.2500 ####[facility] [address] [place], [address] WBC (Bld) [#/Vol] 7.5 10*3/uL Normal 4.4-11.0 [facility] Comment on above: Performed By: #### L 100.0100, L500.2500 ####[facility] [address] [place], [address] Ketones Test strip Ql (U)Ord ered By: Garfield Pierson on 04-20-2025 Ketones Ql (U) Negative Negative [facility] Legionella Antigen Urineon 1 LEGU Normal [facility] Comment on above: Performed By: #### M 300.4500, M100.2200, M8200.1000, M100.678, L8200.1000, M300.4600, L400.0001 ####[facility] [address] [place], [address] Mucus LM Ql (Urine sed)Order ed By: Garfield Pierson on 04-20-2025 Mucus Ql (Urine sed) 0 SEEN /hpf [facility] Nitrite Test strip Ql (U)Ord ered By: Garfield Pierson on 04-20-2025 Nitrite Ql (U) Negative Negative [facility] No Panel InformationOrdered By: Garfield Pierson on 04-20-2025 Negative < 200 ng/mL [facility] Osmolality urOrdered By: Aminata Pierson on 04-20-2025 Osmolality (U) [Osmolality] 263 mOsm/KG >50 [facility] Osmolality, Urineon 04-20-20 25 OSMOLALITY,UR 263 mOsm/KG Normal [facility] Comment on above: Result Comment: Norm al Urine Reference Ranges Random: 50 - 1200 mOsm/kg H20 depending on fluid intake Random: >850 mOsm/kg after 12 hour fluid restriction 24 hour: 300 - 900 mOsm/kg H2O Performed By: #### L 501.7400 ####[facility] [address] [place], [address] Protein Test strip Ql (U)Ord ered By: Garfield Pierson on 04-20-2025 Protein Ql (U) 30 mg/dl High Negative [facility] Screening urine fentanyl bubba surementOrdered By: Garfield Pierson on 04-20-2025 fentaNYL Screen Ql (U) Negative <5 ng/mL [facility] Squamous epithelial cells de tection in urine sediment by light microscopyOrdered By: Garfield Pierson on 04-20-2025 Epithelial cells.squamous LM Ql (Urine sed) 0-5 SEEN /hpf 5-10 [facility] Strep pneumoniae Antig(UR,CS F)on 04-20-2025 STPAG Normal [facility] Comment on above: Performed By: #### M 300.4500, M100.2200, M8200.1000, M100.678, L8200.1000, M300.4600, L400.0001 ####[facility] [address] [place], [address] Transitional cells detection in urine sediment by light microscopyOrdered By: Garfield Pierson on 04-20-2025 Transitional cells LM Ql (Urine sed) 0-5 SEEN /hpf 0-5 [facility] Urinalysis, Completeon 04-20 EPI,SQUAMOUS 0-5 SEEN Normal 5-10 [facility] Comment on above: Order Comment: DALY CHAVEZ TO SPECIFY Performed By: #### M 300.4500, M100.2200, M8200.1000, M100.678, L8200.1000, M300.4600, L400.0001 ####[facility] [address] [place], [address] EPI,TRANSITION 0-5 SEEN Normal 0-5 [facility] Comment on above: Order Comment: DALY CTOR TO SPECIFY Performed By: #### M 300.4500, M100.2200, M8200.1000, M100.678, L8200.1000, M300.4600, L400.0001 ####[facility] [address] [place], [address] BACTERIA 0 SEEN Normal None Seen [facility] Comment on above: Order Comment: DALY CTOR TO SPECIFY Performed By: #### M 300.4500, M100.2200, M8200.1000, M100.678, L8200.1000, M300.4600, L400.0001 ####[facility] [address] [place], [address] Mucus Ql (Urine sed) 0 SEEN Normal [facility] Comment on above: Order Comment: DALY CTOR TO SPECIFY Performed By: #### M 300.4500, M100.2200, M8200.1000, M100.678, L8200.1000, M300.4600, L400.0001 ####[facility] [address] [place], [address] RBC 0 SEEN Normal 0-5 [facility] Comment on above: Order Comment: DALY CTOR TO SPECIFY Performed By: #### M 300.4500, M100.2200, M8200.1000, M100.678, L8200.1000, M300.4600, L400.0001 ####[facility] [address] [place], [address] WBC 0 SEEN Normal 0-5 [facility] Comment on above: Order Comment: DALY CTOR TO SPECIFY Performed By: #### M 300.4500, M100.2200, M8200.1000, M100.678, L8200.1000, M300.4600, L400.0001 ####[facility] [address] [place], [address] Urine Drug Screen (VISTA)on 04-20-2025 AMPHETAMINES Negative Normal <1000 ng/mL [facility] Comment on above: Performed By: #### L 505.5000 ####[facility] [address] [place], [place], [id number] BARBITIURATES Negative Normal < 200 ng/mL [facility] Comment on above: Performed By: #### L 505.5000 ####[facility] [address] [facility] [id number] BENZODIAZIPINE Negative Normal < 200 ng/mL [facility] Comment on above: Performed By: #### L 505.5000 ####[facility] [address] [place], [place], [id number] BUP Ur Drug Scr Negative Normal < 200 ng/mL [facility] Comment on above: Performed By: #### L 505.5000 ####[facility] [address] [place], [place], [id number] COCAINE Negative Normal < 300 ng/mL [facility] Comment on above: Performed By: #### L 505.5000 ####[facility] [address] [place], [place], [phone] Fentanyl Negative Normal <5 ng/mL [facility] Comment on above: Result Comment: CONF IRMATORY [...] testmnemonic: UTCA Performed By: #### L 505.5000 ####[facility] [address] [place], [place], [id number] METHADONE Negative Normal < 300 ng/mL [facility] Comment on above: Performed By: #### L 505.5000 ####[facility] [address] [place], [address] OPIATES Negative Normal < 300 ng/mL [facility] Comment on above: Performed By: #### L 505.5000 ####[facility] [address] [place], [address] OXYCODONE Negative Normal < 100 ng/mL [facility] Comment on above: Performed By: #### L 505.5000 ####[facility] [address] [place], [address] PCP Negative Normal < 25 ng/mL [facility] Comment on above: Performed By: #### L 505.5000 ####[facility] [address] [place], [address] THC Negative Normal < 50 ng/mL [facility] Comment on above: Performed By: #### L 505.5000 ####[facility] [address] [place], [address] Urine Legionella pneumophila antigen detectionOrdered By: Garfield Pierson on 04-20-2025 L. pneumophila Ag Ql (U) [facility] L. pneumophila Ag Ql (U) [facility] Urine Sodiumon 04-20-2025 Sodium (U) [Moles/Vol] 34 mmol/L Normal Not Establ. [facility] Comment on above: Performed By: #### L 501.5500 ####[facility] [address] [place], [address] Urine clarityOrdered By: Aminata Pierson on 04-20-2025 Clarity (U) Sl. Cloudy Clear [facility] Urine color determinationOrd ered By: Garfield Pierson on 04-20-2025 Color (U) Yellow Yellow [facility] Urine cultureOrdered By: Aminata Pierson on 04-20-2025 Bacteria identified Cx Nom (U) Mixed Gram Pos & Gram Neg Org Abnormal [facility] Bacteria identified Cx Nom (U) Mixed Gram Pos & Gram Neg Org Abnormal [facility] Urine glucose detectionOrder ed By: Garfield Pierson on 04-20-2025 Glucose Ql (U) 250 mg/dl High Normal [facility] Urine leukocyte esterase det ection by dipstickOrdered By: Garfield Pierson on 04-20-2025 Leukocyte esterase Test strip Ql (U) Negative Negative [facility] Urine pHOrdered By: Garfield Pierson on 04-20-2025 pH (U) 6.0 [pH] 5.0 - 8.0 [facility] Urine phencyclidine (PCP) de tectionOrdered By: Garfield Pierson on 04-20-2025 Phencyclidine Ql (U) Negative < 25 ng/mL [facility] Urine sediment bacteria coun t by microscopy (number/high power field)Ordered By: Garfield Pierson on 04-20-2025 Bacteria LM.HPF (Urine sed) [#/Area] 0 /[HPF] None Seen [facility] Urine sodium measurement (mo les/volume)Ordered By: Jermaine Simms on 04-20-2025 Sodium (U) [Moles/Vol] 34 mmol/L Not Establ. [facility] Urine specific gravity measu rementOrdered By: Garfield Pierson on 04-20-2025 Specific gravity (U) [Rel density] 1.010 1.002-1.030 [facility] Urine urobilinogen measureme ntOrdered By: Garfield Pierson on 04-20-2025 Urobilinogen Ql (U) Normal mg/dl Normal [facility] White blood cell countOrdere d By: Garfield Pierson on 04-20-2025 White blood cell count 0 SEEN /hpf 0-5 [facility] Basic Metabolic Profile (BMP )on 04-19-2025 BUN/CRE 28.8 RATIO High 04-21 [facility] Comment on above: Performed By: #### L 500.2500 ####[facility] [address] [place], [address] Calcium [Mass/Vol] 8.8 mg/dL Normal 7.6-11.0 [facility] Comment on above: Performed By: #### L 500.2500 ####[facility] [address] [place], [address] Chloride [Moles/Vol] 83 mmol/L Low 98-108 [facility] Comment on above: Performed By: #### L 500.2500 ####[facility] [address] [place], [address] CO2 [Moles/Vol] 33.7 mmol/L High 21.0-32.0 [facility] Comment on above: Performed By: #### L 500.2500 ####[facility] [address] [place], [address] Creatinine [Mass/Vol] 1.39 mg/dL High 0.70-1.20 [facility] Comment on above: Performed By: #### L 500.2500 ####[facility] [address] [place], [address] ECRCL 43.20 ml/min Low 50-250 [facility] Comment on above: Performed By: #### L 500.2500 ####[facility] [address] [place], [address] GAP 9 Normal 5-15 [facility] Comment on above: Performed By: #### L 500.2500 ####[facility] [address] [place], [address] GFR/1.73 sq M.predicted among non-blacks MDRD (S/P/Bld) [Vol rate/Area] 39 mL/min/{1.73_m2} Low >60 [facility] Comment on above: Result Comment: mL/m in/1.73m2 CKD-EPI Creatinine Equation (2020) Performed By: #### L 500.2500 ####[facility] [address] [place], [address] Glucose [Mass/Vol] 128 mg/dL High 70-99 [facility] Comment on above: Performed By: #### L 500.2500 ####[facility] [address] [place], [address] Potassium [Moles/Vol] 4.3 mmol/L Normal 3.3-5.1 [facility] Comment on above: Performed By: #### L 500.2500 ####[facility] [address] [place], [address] Sodium [Moles/Vol] 125 mmol/L Low 133-145 [facility] Comment on above: Performed By: #### L 500.2500 ####[facility] [address] [place], [address] Urea nitrogen [Mass/Vol] 40 mg/dL High 4-19 [facility] Comment on above: Performed By: #### L 500.2500 ####[facility] [address] [place], [address] BUN/CRE 30.5 RATIO High 10-20 [facility] Comment on above: Performed By: #### L 500.4100, L500.2500, L100.0500 ####[facility] [address] [place], [address] Calcium [Mass/Vol] 9.4 mg/dL Normal 7.6-11.0 [facility] Comment on above: Performed By: #### L 500.4100, L500.2500, L100.0500 ####[facility] [address] [place], [address] Chloride [Moles/Vol] 78 mmol/L Low 98-108 [facility] Comment on above: Performed By: #### L 500.4100, L500.2500, L100.0500 ####[facility] [address] [place], [address] CO2 [Moles/Vol] 40.9 mmol/L High 21.0-32.0 [facility] Comment on above: Performed By: #### L 500.4100, L500.2500, L100.0500 ####[facility] [address] [place], [address] Creatinine [Mass/Vol] 1.33 mg/dL High 0.70-1.20 [facility] Comment on above: Performed By: #### L 500.4100, L500.2500, L100.0500 ####[facility] [address] [place], [address] ECRCL 45.15 ml/min Low 50-250 [facility] Comment on above: Performed By: #### L 500.4100, L500.2500, L100.0500 ####[facility] [address] [place], [address] GAP 4 Low 5-15 [facility] Comment on above: Performed By: #### L 500.4100, L500.2500, L100.0500 ####[facility] [address] [place], [address] GFR/1.73 sq M.predicted among non-blacks MDRD (S/P/Bld) [Vol rate/Area] 41 mL/min/{1.73_m2} Low >60 [facility] Comment on above: Result Comment: mL/m in/1.73m2 CKD-EPI Creatinine Equation (2020) Performed By: #### L 500.4100, L500.2500, L100.0500 ####[facility] [address] [place], [address] Glucose [Mass/Vol] 105 mg/dL High 70-99 [facility] Comment on above: Performed By: #### L 500.4100, L500.2500, L100.0500 ####[facility] [address] [place], [address] Potassium [Moles/Vol] 4.4 mmol/L Normal 3.3-5.1 [facility] Comment on above: Performed By: #### L 500.4100, L500.2500, L100.0500 ####[facility] [address] [place], [address] Sodium [Moles/Vol] 123 mmol/L Low 133-145 [facility] Comment on above: Performed By: #### L 500.4100, L500.2500, L100.0500 ####[facility] [address] [place], [address] Urea nitrogen [Mass/Vol] 41 mg/dL High 4-19 [facility] Comment on above: Performed By: #### L 500.4100, L500.2500, L100.0500 ####[facility] [address] [place], [address] Bedside Glucoseon 04-19-2025 FINGERSTICK GLU 108 mg/dL High 74-106 [facility] Comment on above: Result Comment: ROSA ISELA GEMENT OF PATIENT CARE PER NURSING PROTOCOL Performed By: #### L 501.080 ####[facility] [address] [place], [address] Blood cultureOrdered By: Aminata Pierson on 04-19-2025 Bacteria identified Cx Nom (Bld) No growth in 5 days. [facility] Bacteria identified Cx Nom (Bld) No growth in 5 days. [facility] Bacteria identified Cx Nom (Bld) No growth in 5 days. [facility] Bacteria identified Cx Nom (Bld) No growth in 5 days. [facility] CBC W/Diff, Automatedon 10- Absolute Lymph 1.28 X10 3/uL Normal 0.83-4.51 [facility] Comment on above: Performed By: #### L 100.0100, M200.1000, L503.6005, L501.3620 ####[facility] [address] [place], [address] Absolute Neut 6.0 X10 3/uL Normal 2.0-7.7 [facility] Comment on above: Performed By: #### L 100.0100, M200.1000, L503.6005, L501.3620 ####[facility] [address] [place], [address] Basophils/100 WBC (Bld) 0.4 % Normal 0-1 [facility] Comment on above: Performed By: #### L 100.0100, M200.1000, L503.6005, L501.3620 ####[facility] [address] [place], [address] Eosinophils/100 WBC (Bld) 2.7 % Normal 0-5 [facility] Comment on above: Performed By: #### L 100.0100, M200.1000, L503.6005, L501.3620 ####[facility] [address] [place], [address] Erythrocyte distribution width (RBC) [Ratio] 14.5 % Normal 11.6-14.6 [facility] Comment on above: Performed By: #### L 100.0100, M200.1000, L503.6005, L501.3620 ####[facility] [address] [place], [address] Hematocrit (Bld) [Volume fraction] 34.7 % Low 37-47 [facility] Comment on above: Performed By: #### L 100.0100, M200.1000, L503.6005, L501.3620 ####[facility] [address] [place], [address] Hemoglobin (Bld) [Mass/Vol] 11.3 g/dL Low 12.0-15.0 [facility] Comment on above: Performed By: #### L 100.0100, M200.1000, L503.6005, L501.3620 ####[facility] [address] [place], [address] IG% 0.900 Normal 0.0-0.9 [facility] Comment on above: Result Comment: IG% - Immature Granulocytes (promyelocytes, myelocytes andmetamyelocytes) > 1% indicates that a LEFT SHIFT is Present. Performed By: #### L 100.0100, M200.1000, L503.6005, L501.3620 ####[facility] [address] [place], [address] Lymphocytes/100 WBC (Bld) 15.6 % Low 19-41 [facility] Comment on above: Performed By: #### L 100.0100, M200.1000, L503.6005, L501.3620 ####[facility] [address] [place], [address] MCH (RBC) [Entitic mass] 29.7 pg Normal 27.0-32.0 [facility] Comment on above: Performed By: #### L 100.0100, M200.1000, L503.6005, L501.3620 ####[facility] [address] [place], [address] MCHC (RBC) [Mass/Vol] 32.6 g/dL Normal 32-36 [facility] Comment on above: Performed By: #### L 100.0100, M200.1000, L503.6005, L501.3620 ####[facility] [address] [place], [address] MCV (RBC) [Entitic vol] 91.1 fL Normal 81-99 [facility] Comment on above: Performed By: #### L 100.0100, M200.1000, L503.6005, L501.3620 ####[facility] [address] [place], [address] Monocytes/100 WBC (Bld) 7.9 % Normal 0-10 [facility] Comment on above: Performed By: #### L 100.0100, M200.1000, L503.6005, L501.3620 ####[facility] [address] [place], [address] Neutrophils/100 WBC (Bld) 72.5 % High 47-70 [facility] Comment on above: Performed By: #### L 100.0100, M200.1000, L503.6005, L501.3620 ####[facility] [address] [place], [address] Nucleated RBC (Bld) [#/Vol] 0 10*3/uL Normal 0-5 [facility] Comment on above: Performed By: #### L 100.0100, M200.1000, L503.6005, L501.3620 ####[facility] [address] [place], [address] Platelet mean volume (Bld) [Entitic vol] 10.7 fL Normal 6.2-12.0 [facility] Comment on above: Performed By: #### L 100.0100, M200.1000, L503.6005, L501.3620 ####[facility] [address] [place], [address] Platelets (Bld) [#/Vol] 121 10*3/uL Low 150-450 [facility] Comment on above: Performed By: #### L 100.0100, M200.1000, L503.6005, L501.3620 ####[facility] [address] [place], [address] RBC (Bld) [#/Vol] 3.81 10*6/uL Low 4.2-5.4 [facility] Comment on above: Performed By: #### L 100.0100, M200.1000, L503.6005, L501.3620 ####[facility] [address] [place], [address] RDW SD 48.4 fl High 35.1-43.9 [facility] Comment on above: Performed By: #### L 100.0100, M200.1000, L503.6005, L501.3620 ####[facility] [address] [place], [address] WBC (Bld) [#/Vol] 8.2 10*3/uL Normal 4.4-11.0 [facility] Comment on above: Performed By: #### L 100.0100, M200.1000, L503.6005, L501.3620 ####[facility] [address] [place], [address] CBC-Complete Blood Cnt No Di ffon 04-19-2025 Erythrocyte distribution width (RBC) [Ratio] 14.3 % Normal 11.6-14.6 [facility] Comment on above: Performed By: #### L 500.4100, L500.2500, L100.0500 ####[facility] [address] [place], [address] Hematocrit (Bld) [Volume fraction] 36.7 % Low 37-47 [facility] Comment on above: Performed By: #### L 500.4100, L500.2500, L100.0500 ####[facility] [address] [place], [address] Hemoglobin (Bld) [Mass/Vol] 12.1 g/dL Normal 12.0-15.0 [facility] Comment on above: Performed By: #### L 500.4100, L500.2500, L100.0500 ####[facility] [address] [place], [address] MCH (RBC) [Entitic mass] 29.4 pg Normal 27.0-32.0 [facility] Comment on above: Performed By: #### L 500.4100, L500.2500, L100.0500 ####[facility] [address] [place], [address] MCHC (RBC) [Mass/Vol] 33.0 g/dL Normal 32-36 [facility] Comment on above: Performed By: #### L 500.4100, L500.2500, L100.0500 ####[facility] [address] [place], [address] MCV (RBC) [Entitic vol] 89.3 fL Normal 81-99 [facility] Comment on above: Performed By: #### L 500.4100, L500.2500, L100.0500 ####[facility] [address] [place], [address] Platelet mean volume (Bld) [Entitic vol] 10.6 fL Normal 6.2-12.0 [facility] Comment on above: Performed By: #### L 500.4100, L500.2500, L100.0500 ####[facility] [address] [place], [address] Platelets (Bld) [#/Vol] 129 10*3/uL Low 150-450 [facility] Comment on above: Performed By: #### L 500.4100, L500.2500, L100.0500 ####[facility] [address] [place], [address] RBC (Bld) [#/Vol] 4.11 10*6/uL Low 4.2-5.4 [facility] Comment on above: Performed By: #### L 500.4100, L500.2500, L100.0500 ####[facility] [address] [place], [address] RDW SD 47.1 fl High 35.1-43.9 [facility] Comment on above: Performed By: #### L 500.4100, L500.2500, L100.0500 ####[facility] [address] [place], [address] WBC (Bld) [#/Vol] 7.7 10*3/uL Normal 4.4-11.0 [facility] Comment on above: Performed By: #### L 500.4100, L500.2500, L100.0500 ####[facility] [address] [place], [address] CO2 (BldV) [Moles/Vol]Ordere d By: Garfield Pierson on 04-19-2025 CO2 [Moles/Vol] 34 mmol/L High 23-33 [facility] CPK Total, Creatine Kinaseon 04-19-2025 CPK TOTAL 65 U/L Normal 24-195 [facility] Comment on above: Performed By: #### L 100.0100, M200.1000, L503.6005, L501.3620 ####[facility] [address] 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40 [facility] Comment on above: Performed By: #### L 509.6001 ####[facility] [address] [place], [address] LDL calc ser/plasOrdered By: Jermaine Simms on 04-19-2025 Cholesterol in LDL [Mass/Vol] 113 mg/dL [facility] Lactic Acidon 04-19-2025 Lactate [Moles/Vol] 1.3 mmol/L Normal 0.0-2.0 [facility] Comment on above: Order Comment: Y Performed By: #### L 100.0100, M200.1000, L503.6005, L501.3620 ####[facility] [address] [place], [address] Lipid Profileon 04-19-2025 CHOL:HDL 2.89 Normal [facility] Comment on above: Performed By: #### L 500.4100, L500.2500, L100.0500 ####[facility] [address] [place], [address] Cholesterol [Mass/Vol] 206 mg/dL High <=200 [facility] Comment on above: Result Comment: Chol esterol level, Desirable <200 mg/dLBorderline high cholesterol 200-239 mg/dLHigh cholesterol >=240 mg/dLRecommendations of the NCEP Adult Treatment Panel for thefollowing risk-cutoff thresholds for the [place] Americanpulation. Performed By: #### L 500.4100, L500.2500, L100.0500 ####[facility] [address] [place], [address] Cholesterol in HDL [Mass/Vol] 71 mg/dL Normal [facility] Comment on above: Result Comment: Aliya onal Cholesterol Education Program (NCEP) guidelines:<40 mg/dL: Low HDL-cholesterol (major risk factor for CHD)>= 60 mg/dL: High HDL-cholesterol (negative risk factor forCHD)HDL-cholesterol is affected by a number of factors, e.g.smoking, exercise, hormones, sex and age. Performed By: #### L 500.4100, L500.2500, L100.0500 ####[facility] [address] [place], [address] Cholesterol in LDL [Mass/Vol] 113 mg/dL Normal [facility] Comment on above: Result Comment: Bord frhhuc=472-090 mg/dL Higher Btit=775 mg/dL or greaterSampson Equation 2020 for LDL-C Performed By: #### L 500.4100, L500.2500, L100.0500 ####[facility] [address] [place], [address] Cholesterol in VLDL [Mass/Vol] 25 mg/dL Normal 5-40 [facility] Comment on above: Performed By: #### L 500.4100, L500.2500, L100.0500 ####[facility] [address] [place], [address] Triglyceride [Mass/Vol] 125 mg/dL Normal [facility] Comment on above: Result Comment: The drugs N-Acetylcysteine and Metamizole may falselydepress this assay.Normal range: <150 mg/dLBorderline High: 150-199 mg/dLHigh: 200-499 mg/dLVery High: >500 mg/dL Performed By: #### L 500.4100, L500.2500, L100.0500 ####[facility] [address] [place], [address] M R Staph Aureus DNA by PCRo n 04-19-2025 MRSA DNA ASSAY Normal Negative [facility] Comment on above: Result Comment: DUPL ICATE ORDER Performed By: #### M 300.4500, M100.2200, M8200.1000, M100.678, L8200.1000, M300.4600, L400.0001 ####[facility] [address] [place], [address] PROBE CHECK Normal [facility] Comment on above: Result Comment: DUPL ICATE ORDER Performed By: #### M 300.4500, M100.2200, M8200.1000, M100.678, L8200.1000, M300.4600, L400.0001 ####[facility] [address] [place], [place], [phone] SPC Normal [facility] Comment on above: Result Comment: DUPL ICATE ORDER Performed By: #### M 300.4500, M100.2200, M8200.1000, M100.678, L8200.1000, M300.4600, L400.0001 ####[facility] [address] [place], [address] M100.678on 04-19-2025 M100.678 SARS-CoV-2 (COVID 19 ) Negative INFLUENZA A Negative INFLUENZA B Negative RSV PCR Negative Normal [facility] Comment on above: Performed By: #### M 300.4500, M100.2200, M8200.1000, M100.678, L8200.1000, M300.4600, L400.0001 ####[facility] [address] [facility] [place], [place], [phone] M8200.1000on 04-19-2025 M8200.1000 Normal Reference Ran ge = Negative MRSA DNA Nose Ql RANJIT+probe GeneXpert Instrument, PCR method MRSA PCR MRSA NEGATIVE Normal [facility] Comment on above: Performed By: #### M 300.4500, M100.2200, M8200.1000, M100.678, L8200.1000, M300.4600, L400.0001 ####[facility] [address] [place], [place], [phone] Nasal methicillin resistant Staphylococcus aureus (MRSA) DNA detection by PCROrdered By: Garfield Pierson on 04-19-2025 MRSA DNA RANJIT+probe Ql (Nose) [facility] MRSA DNA RANJIT+probe Ql (Nose) [facility] No Panel InformationOrdered By: Garfield Pierson on 04-19-2025 MARICRUZ [facility] Not entered [facility] Cannula [facility] Osmolality, Serumon 04-19-20 25 OSMOLALITY,SER 279 mOsm/KG Low 280-301 [facility] Comment on above: Performed By: #### L 501.7300 ####[facility] [address] [place], [address] Serum or plasma cholesterol in HDL measurement (mass/volume)Ordered By: Jermaine Simms on 04-19-2025 Cholesterol in HDL [Mass/Vol] 71 mg/dL >40 [facility] Serum or plasma cholesterol measurement (mass/volume)Ordered By: Jermaine Simms on 04-19-2025 Cholesterol [Mass/Vol] 206 mg/dL High <201 [facility] Serum or plasma cortisol bubba surement (mass/volume)Ordered By: Jermaine Simms on 04-19-2025 Cortisol [Mass/Vol] 18.40 ug/dL 6.02-18.40 [facility] Serum or plasma creatine kin ase activityOrdered By: Garfield Pierson on 04-19-2025 CK [Catalytic activity/Vol] 65 U/L 24-195 [facility] Venous Blood Gason 5 Blood Gas Type MARICRUZ [facility] Comment on above: Performed By: #### L 9000.0810 ####[facility] [address] [place], [address] CO2 [Moles/Vol] 34 mmol/L High 23-33 [facility] Comment on above: Performed By: #### L 9000.0810 ####[facility] [address] [place], [address] FI02 2.0 Normal [facility] Comment on above: Performed By: #### L 9000.0810 ####[facility] [address] [place], [address] HCO3 (Bld) [Moles/Vol] 33 mmol/L High 22-26 [facility] Comment on above: Performed By: #### L 9000.0810 ####[facility] [address] [place], [address] O2 Delivery Dev Cannula Normal [facility] Comment on above: Performed By: #### L 9000.0810 ####[facility] [address] [place], [address] SITE Not entered Normal [facility] Comment on above: Performed By: #### L 9000.0810 ####[facility] [address] [place], [address] VBG BE 10 mmol/L High -1.0-3.5 [facility] Comment on above: Performed By: #### L 9000.0810 ####[facility] [address] [place], [address] VBG pCO2 44.6 mmHg Normal 41-51 [facility] Comment on above: Performed By: #### L 9000.0810 ####[facility] [address] [place], [address] VBG pH 7.48 High 7.32-7.42 [facility] Comment on above: Performed By: #### L 9000.0810 ####[facility] [address] [place], [address] VBG PO2 133 mmHg High 25-40 [facility] Comment on above: Performed By: #### L 9000.0810 ####[facility] [address] [place], [address] VBG SO2 99 High 50-70 [facility] Comment on above: Performed By: #### L 9000.0810 ####[facility] [address] [place], [address] Venous blood base excess bubba surementOrdered By: Garfield Pierson on 04-19-2025 Base excess Calc (BldV) [Moles/Vol] 10 mmol/L High -1.0-3.5 [facility] Venous blood bicarbonate bubba surementOrdered By: Garfield Pierson on 04-19-2025 HCO3 (Bld) [Moles/Vol] 33 mmol/L High 22-26 [facility] Venous blood pH measurementO rdered By: Garfield Pierson on 04-19-2025 pH (BldV) 7.48 [pH] High 7.32-7.42 [facility] Venous blood partial pressur e of carbon dioxide measurementOrdered By: Garfield Pierson on 04-19-2025 CO2 (BldV) [Partial pressure] 44.6 mm[Hg] 41-51 [facility] Venous blood partial pressur e of oxygen measurementOrdered By: Garfield Pierson on 04-19-2025 Oxygen (BldV) [Partial pressure] 133 mm[Hg] High 25-40 [facility] Bilirubin, totalOrdered By: Deion Levy on 04-18-2025 Bilirubin [Mass/Vol] 0.41 mg/dL 0.00-1.30 [facility] CBC W/Diff, Automatedon 04-02 Absolute Lymph 1.09 X10 3/uL Normal 0.83-4.51 [facility] Comment on above: Performed By: #### L 100.0100, L500.4050 ####[facility] [address] [place], [address] Absolute Neut 7.8 X10 3/uL High 2.0-7.7 [facility] Comment on above: Performed By: #### L 100.0100, L500.4050 ####[facility] [address] [place], [address] Basophils/100 WBC (Bld) 0.2 % Normal 0-1 [facility] Comment on above: Performed By: #### L 100.0100, L500.4050 ####[facility] [address] [place], [address] Eosinophils/100 WBC (Bld) 1.6 % Normal 0-5 [facility] Comment on above: Performed By: #### L 100.0100, L500.4050 ####[facility] [address] [place], [address] Erythrocyte distribution width (RBC) [Ratio] 13.9 % Normal 11.6-14.6 [facility] Comment on above: Performed By: #### L 100.0100, L500.4050 ####[facility] [address] [place], [address] Hematocrit (Bld) [Volume fraction] 40.0 % Normal 37-47 [facility] Comment on above: Performed By: #### L 100.0100, L500.4050 ####[facility] [address] [place], [address] Hemoglobin (Bld) [Mass/Vol] 13.1 g/dL Normal 12.0-15.0 [facility] Comment on above: Performed By: #### L 100.0100, L500.4050 ####[facility] [address] [place], [address] IG% 0.600 Normal 0.0-0.9 [facility] Comment on above: Result Comment: IG% - Immature Granulocytes (promyelocytes, myelocytes andmetamyelocytes) > 1% indicates that a LEFT SHIFT is Present. Performed By: #### L 100.0100, L500.4050 ####[facility] [address] [place], [address] Lymphocytes/100 WBC (Bld) 10.9 % Low 19-41 [facility] Comment on above: Performed By: #### L 100.0100, L500.4050 ####[facility] [address] [place], [address] MCH (RBC) [Entitic mass] 29.2 pg Normal 27.0-32.0 [facility] Comment on above: Performed By: #### L 100.0100, L500.4050 ####[facility] [address] [place], [address] MCHC (RBC) [Mass/Vol] 32.8 g/dL Normal 32-36 [facility] Comment on above: Performed By: #### L 100.0100, L500.4050 ####[facility] [address] [place], [address] MCV (RBC) [Entitic vol] 89.1 fL Normal 81-99 [facility] Comment on above: Performed By: #### L 100.0100, L500.4050 ####[facility] [address] [place], [address] Monocytes/100 WBC (Bld) 8.9 % Normal 0-[address] [facility] Comment on above: Performed By: #### L 100.0100, L500.4050 ####[facility] [address] [place], [address] Neutrophils/100 WBC (Bld) 77.8 % High 47-70 [facility] Comment on above: Performed By: #### L 100.0100, L500.4050 ####[facility] [address] [place], [address] Nucleated RBC (Bld) [#/Vol] 0 10*3/uL Normal 0-5 [facility] Comment on above: Performed By: #### L 100.0100, L500.4050 ####[facility] [address] [place], [address] Platelet mean volume (Bld) [Entitic vol] 11.7 fL Normal 6.2-12.0 [facility] Comment on above: Performed By: #### L 100.0100, L500.4050 ####[facility] [address] [place], [address] Platelets (Bld) [#/Vol] 160 10*3/uL Normal 150-450 [facility] Comment on above: Performed By: #### L 100.0100, L500.4050 ####[facility] [address] [place], [address] RBC (Bld) [#/Vol] 4.49 10*6/uL Normal 4.2-5.4 [facility] Comment on above: Performed By: #### L 100.0100, L500.4050 ####[facility] [address] [place], [address] RDW SD 45.1 fl High 35.1-43.9 [facility] Comment on above: Performed By: #### L 100.0100, L500.4050 ####[facility] [address] [place], [address] WBC (Bld) [#/Vol] 10.0 10*3/uL Normal 4.4-11.0 [facility] Comment on above: Performed By: #### L 100.0100, L500.4050 ####[facility] [address] [place], [address] Comprehensive Metabolic Prof [facility] 04-18-2025 Albumin [Mass/Vol] 3.7 g/dL Normal 3.4-4.8 [facility] Comment on above: Performed By: #### L 100.0100, L500.4050 ####[facility] [address] [place], [address] Albumin/Globulin [Mass ratio] 1.2 {ratio} Normal 0.9-2.4 [facility] Comment on above: Performed By: #### L 100.0100, L500.4050 ####[facility] [address] [place], [address] ALK PHOS 123 U/L High 35-104 [facility] Comment on above: Performed By: #### L 100.0100, L500.4050 ####[facility] [address] [place], [address] ALT [Catalytic activity/Vol] 32 U/L Normal <=34 [facility] Comment on above: Performed By: #### L 100.0100, L500.4050 ####[facility] [address] [place], [address] AST [Catalytic activity/Vol] 50 U/L High <=31 [facility] Comment on above: Result Comment: Hemo lysis present, Results??could be affected.?? Performed By: #### L 100.0100, L500.4050 ####[facility] [address] [place], [address] Bilirubin [Mass/Vol] 0.41 mg/dL Normal 0.00-1.30 [facility] Comment on above: Performed By: #### L 100.0100, L500.4050 ####[facility] [address] [place], [address] BUN/CRE 40.9 RATIO High 10-20 [facility] Comment on above: Performed By: #### L 100.0100, L500.4050 ####[facility] [address] [place], [address] Calcium [Mass/Vol] 9.7 mg/dL Normal 7.6-11.0 [facility] Comment on above: Performed By: #### L 100.0100, L500.4050 ####[facility] [address] [place], [address] Chloride [Moles/Vol] 73 mmol/L Invalid Interpretation Code 98-108 [facility] Comment on above: Result Comment: Crit ical Result(s) Called at: 1613 by:??PIERRE YANG Results read back by same. Performed By: #### L 100.0100, L500.4050 ####[facility] [address] [place], [address] CO2 [Moles/Vol] 42.5 mmol/L High 21.0-32.0 [facility] Comment on above: Performed By: #### L 100.0100, L500.4050 ####[facility] [address] [place], [address] Creatinine [Mass/Vol] 1.30 mg/dL High 0.70-1.20 [facility] Comment on above: Performed By: #### L 100.0100, L500.4050 ####[facility] [address] [place], [address] ECRCL 46.24 ml/min Low 50-250 [facility] Comment on above: Performed By: #### L 100.0100, L500.4050 ####[facility] [address] [place], [address] GAP 6 Normal 5-15 [facility] Comment on above: Performed By: #### L 100.0100, L500.4050 ####[facility] [address] [place], [address] GFR/1.73 sq M.predicted among non-blacks MDRD (S/P/Bld) [Vol rate/Area] 43 mL/min/{1.73_m2} Low >60 [facility] Comment on above: Result Comment: mL/m in/1.73m2 CKD-EPI Creatinine Equation (2020) Performed By: #### L 100.0100, L500.4050 ####[facility] [address] [place], [address] Globulin (S) [Mass/Vol] 3.0 g/dL Normal 2.2-4.[address] [facility] Comment on above: Performed By: #### L 100.0100, L500.4050 ####[facility] [address] [place], [address] Glucose [Mass/Vol] 102 mg/dL High 70-99 [facility] Comment on above: Performed By: #### L 100.0100, L500.4050 ####[facility] [address] [place], [address] Potassium [Moles/Vol] 5.4 mmol/L High 3.3-5.1 [facility] Comment on above: Result Comment: Hemo lysis present, Results??could be affected.?? Performed By: #### L 100.0100, L500.4050 ####[facility] [address] [place], [address] Sodium [Moles/Vol] 121 mmol/L Low 133-145 [facility] Comment on above: Performed By: #### L 100.0100, L500.4050 ####[facility] [address] [place], [address] T PROT 6.6 g/dL Normal 5.9-8.4 [facility] Comment on above: Performed By: #### L 100.0100, L500.4050 ####[facility] [address] [place], [address] Urea nitrogen [Mass/Vol] 53 mg/dL High 4-19 [facility] Comment on above: Performed By: #### L 100.0100, L500.4050 ####[facility] [address] [place], [address] Emergency Department Summary on 04-18-2025 Emergency Department Summary Normal [facility] H AND P Exam - Hospitaliston 04-18-2025 H&P Exam - Hospitalist Normal [facility] No Panel InformationOrdered By: Deion Levy on 04-18-2025 50 U/L High <32 [facility] Osmolality, Serumon 04-18-20 25 OSMOLALITY,SER 310 mOsm/KG High 280-301 [facility] Comment on above: Order Comment: Comme nts: ok to add on Performed By: #### L 501.7300 ####[facility] [address] [place], [address] Serum globulin measurementOr dered By: Deion Levy on 04-18-2025 Globulin (S) [Mass/Vol] 3.0 g/dL 2.2-4.2 [facility] Serum or plasma alanine gao otransferase (ALT) measurementOrdered By: [facility] on 04-18-2025 ALT [Catalytic activity/Vol] 32 U/L <35 [facility] Serum or plasma albumin lisa urement (mass/volume)Ordered By: [facility] on 04-18-2025 Albumin [Mass/Vol] 3.7 g/dL 3.4-4.8 [facility] Serum or plasma albumin/glob ulin mass ratioOrdered By: [facility] on 04-18-2025 Albumin/Globulin [Mass ratio] 1.2 {ratio} 0.9-2.4 [facility] Serum or plasma alkaline bee sphatase measurementOrdered By: [facility] on 04-18-2025 ALP [Catalytic activity/Vol] 123 U/L High 35-104 [facility] Total proteinOrdered By: [facility] on 04-18-2025 Protein [Mass/Vol] 6.6 g/dL 5.9-8.4 [facility] Comprehensive Metabolic Prof ilon 04-17-2025 Chloride [Moles/Vol] 74 mmol/L Invalid Interpretation Code 98-108 [facility] Comment on above: Order Comment: Order Date: 04/10/25Order Info: [id number] - CMPadd on lab Result Comment: Crit ical Result(s) Called at: 0810 04/17/25 by:RASHAWN???Results read back by same. AMENDED REPORT 04/17/25 0811 CL previously reported as: 74 *L mmol/LCritical Result(s) Called at: by:??Results read back bysame. Performed By: #### L 501.7300, L500.4050 ####[facility] [address] [place], [place], [id number] Anion gap in Serum or Plasma Ordered By: Kamar Grimes on 04-16-2025 Anion gap [Moles/Vol] 7 mmol/L 11-14 [facility] BUN/creatinine ratioOrdered By: Kamar Grimes on 04-16-2025 Urea nitrogen/Creatinine [Mass ratio] 42.5 mg/mg High 04-21 [facility] Bilirubin, totalOrdered By: Kamar Grimes on 04-16-2025 Bilirubin [Mass/Vol] 0.40 mg/dL 0.00-1.30 [facility] Carbon dioxide, total [Moles /volume] in Central venous bloodOrdered By: Kamar Grimes on 04-16-2025 CO2 [Moles/Vol] 44.0 mmol/L High 21.0-32.0 [facility] Cardiology Visit Reporton Cardiology Visit Report Normal [facility] Chloride assayOrdered By: Jennifer Grimes on 04-16-2025 Chloride [Moles/Vol] 74 mmol/L Critically low 98-108 [facility] Glomerular filtration rate ( GFR) estimation/1.73 sq m using serum, plasma, or whole bOrdered By: Kamar Grimes on 04-16-2025 GFR/1.73 sq M.predicted among non-blacks MDRD (S/P/Bld) [Vol rate/Area] 27 mL/min/{1.73_m2} Low >60 [facility] No Panel InformationOrdered By: Kamar Grimes on 04-16-2025 45 U/L High <32 [facility] Osmolality, Serumon 04-16-20 25 OSMOLALITY,SER 300 mOsm/KG Normal 280-301 [facility] Comment on above: Order Comment: Order Date: 04/10/25Order Info: [id number] - OS Performed By: #### L 501.7300, L500.4050 ####[facility] [facility] [address] [place], [place], [address] Potassium measurement (mass/ volume)Ordered By: Kamar Grimes on 04-16-2025 Potassium (Unsp spec) [Mass/Vol] 5.1 mmol/L 3.3-5.1 [facility] Serum creatinine measurement (mass/volume)Ordered By: Kamar Grimes on 04-16-2025 Creatinine [Mass/Vol] 1.91 mg/dL High 0.70-1.20 [facility] Serum globulin measurementOr dered By: Kamar Grimes on 04-16-2025 Globulin (S) [Mass/Vol] 3.0 g/dL 2.2-4.[address] [facility] Serum glucose measurement (m ass/volume)Ordered By: Kamar Grimes on 04-16-2025 Glucose [Mass/Vol] 108 mg/dL High 70-99 [facility] Serum or plasma alanine gao otransferase (ALT) measurementOrdered By: Kamar Grimes on 04-16-2025 ALT [Catalytic activity/Vol] 29 U/L <35 [facility] Serum or plasma albumin lisa urement (mass/volume)Ordered By: Kamar Grimes on 04-16-2025 Albumin [Mass/Vol] 3.9 g/dL 3.4-4.8 [facility] Serum or plasma albumin/glob ulin mass ratioOrdered By: Kamar Grimes on 04-16-2025 Albumin/Globulin [Mass ratio] 1.3 {ratio} 0.9-2.4 [facility] Serum or plasma alkaline bee sphatase measurementOrdered By: Kamar Grimes on 04-16-2025 ALP [Catalytic activity/Vol] 140 U/L High 35-104 [facility] Serum or plasma calcium lisa urement (mass/volume)Ordered By: Kamar Grimes on 04-16-2025 Calcium [Mass/Vol] 9.8 mg/dL 7.6-11.0 [facility] Serum or plasma urea nitroge n measurement (mass/volume)Ordered By: Kamar Grimes on 04-16-2025 Urea nitrogen [Mass/Vol] 81 mg/dL High 4-19 [facility] Sodium levelOrdered By: Kamar Grimes on 04-16-2025 Sodium [Moles/Vol] 125 mmol/L Low 133-145 [facility] Total proteinOrdered By: Esmer Grimes on 04-16-2025 Protein [Mass/Vol] 6.9 g/dL 5.9-8.4 [facility] Absolute lymphocyte countOrd ered By: Kamar Grimes on 04-09-2025 Lymphocytes Auto (Unsp spec) [#/Vol] 1.43 10*3/uL 0.83-4.51 [facility] Anion gap in Serum or Plasma Ordered By: Kamar Grimes on 04-09-2025 Anion gap [Moles/Vol] 11 mmol/L 5-15 [facility] Automated lymphocyte count a s percentage of total leukocytesOrdered By: Kamar Grimes on 04-09-2025 Lymphocytes/100 WBC Auto (Unsp spec) 13.0 % Low 19-41 [facility] BUN/creatinine ratioOrdered By: Kamar Grimes on 04-09-2025 Urea nitrogen/Creatinine [Mass ratio] 29.4 mg/mg High 10- [facility] Basic Metabolic Profile (BMP )on 04-09-2025 BUN Normal 4-19 [facility] Comment on above: Order Comment: Order Date: 03/31/25Order Info: 06-1 - BMP Result Comment: DUPL ICATE-CMP ORDERED Performed By: #### L 500.2500 ####[facility] [address] [place], [address] BUN/CRE Normal 10- [facility] Comment on above: Order Comment: Order Date: 03/31/25Order Info: 0667-1 - BMP Result Comment: DUPL ICATE-CMP ORDERED Performed By: #### L 500.2500 ####[facility] [address] [place], [address] Calcium Normal 7.6-11.0 [facility] Comment on above: Order Comment: Order Date: 03/31/25Order Info: 0667-1 - BMP Result Comment: DUPL ICATE-CMP ORDERED Performed By: #### L 500.2500 ####[facility] [address] [place], [address] CL Normal 98-108 [facility] Comment on above: Order Comment: Order Date: 03/31/25Order Info: 0667-1 - BMP Result Comment: DUPL ICATE-CMP ORDERED Performed By: #### L 500.2500 ####[facility] [address] [place], [address] CO2 Normal 21.0-32.0 [facility] Comment on above: Order Comment: Order Date: 03/31/25Order Info: 666- - BMP Result Comment: DUPL ICATE-CMP ORDERED Performed By: #### L 500.2500 ####[facility] [address] [place], [address] CREAT,SERUM Normal 0.70-1.20 [facility] Comment on above: Order Comment: Order Date: 03/31/25Order Info: 666- - BMP Result Comment: DUPL ICATE-CMP ORDERED Performed By: #### L 500.2500 ####[facility] [address] [place], [address] eGFR Normal >60 [facility] Comment on above: Order Comment: Order Date: 03/31/25Order Info: 666- - BMP Result Comment: DUPL ICATE-CMP ORDERED Performed By: #### L 500.2500 ####[facility] [address] [place], [address] GAP Normal 5-15 [facility] Comment on above: Order Comment: Order Date: 03/31/25Order Info: 666- - BMP Result Comment: DUPL ICATE-CMP ORDERED Performed By: #### L 500.2500 ####[facility] [address] [place], [address] GLU Normal 70-99 [facility] Comment on above: Order Comment: Order Date: 03/31/25Order Info: 666- - BMP Result Comment: DUPL ICATE-CMP ORDERED Performed By: #### L 500.2500 ####[facility] [address] [place], [address] Potassium Normal 3.3-5.1 [facility] Comment on above: Order Comment: Order Date: 03/31/25Order Info: 0667-1 - BMP Result Comment: DUPL ICATE-CMP ORDERED Performed By: #### L 500.2500 ####[facility] [address] [place], [address] Basic Metabolic Profile (BMP) Normal 133-145 [facility] Comment on above: Order Comment: Order Date: 03/31/25Order Info: 0667-1 - BMP Result Comment: DUPL ICATE-CMP ORDERED Performed By: #### L 500.2500 ####[facility] [address] [place], [address] Basophil percentageOrdered B y: Kamar Grimes on 04-09-2025 Basophils/100 WBC (Bld) 0.5 % 0-1 [facility] Bilirubin, totalOrdered By: Kamar Grimes on 04-09-2025 Bilirubin [Mass/Vol] 0.47 mg/dL 0.00-1.30 [facility] CBC W/Diff, Automatedon 10-0 Absolute Lymph 1.43 X10 3/uL Normal 0.83-4.51 [facility] Comment on above: Order Comment: Order Date: 04/09/25Order Info: 0184-1 - CBCD Performed By: #### L 100.0100, L500.4050 ####[facility] [address] [place], [address] Absolute Neut 8.3 X10 3/uL High 2.0-7.7 [facility] Comment on above: Order Comment: Order Date: 04/09/25Order Info: 0184-1 - CBCD Performed By: #### L 100.0100, L500.4050 ####[facility] [address] [place], [address] Basophils/100 WBC (Bld) 0.5 % Normal 0-1 [facility] Comment on above: Order Comment: Order Date: 04/09/25Order Info: 0184-1 - CBCD Performed By: #### L 100.0100, L500.4050 ####[facility] [address] [place], [address] Eosinophils/100 WBC (Bld) 1.0 % Normal 0-5 [facility] Comment on above: Order Comment: Order Date: 04/09/25Order Info: 0184-1 - CBCD Performed By: #### L 100.0100, L500.4050 ####[facility] [address] [place], [address] Erythrocyte distribution width (RBC) [Ratio] 13.7 % Normal 11.6-14.6 [facility] Comment on above: Order Comment: Order Date: 04/09/25Order Info: 0184-1 - CBCD Performed By: #### L 100.0100, L500.4050 ####[facility] [address] [place], [address] Hematocrit (Bld) [Volume fraction] 44.8 % Normal 37-47 [facility] Comment on above: Order Comment: Order Date: 04/09/25Order Info: 0184-1 - CBCD Performed By: #### L 100.0100, L500.4050 ####[facility] [address] [place], [address] Hemoglobin (Bld) [Mass/Vol] 14.5 g/dL Normal 12.0-15.0 [facility] Comment on above: Order Comment: Order Date: 04/09/25Order Info: 0184-1 - CBCD Performed By: #### L 100.0100, L500.4050 ####[facility] [address] [place], [address] IG% 0.800 Normal 0.0-0.9 [facility] Comment on above: Order Comment: Order Date: 04/09/25Order Info: 0184-1 - CBCD Result Comment: IG% - Immature Granulocytes (promyelocytes, myelocytes andmetamyelocytes) > 1% indicates that a LEFT SHIFT is Present. Performed By: #### L 100.0100, L500.4050 ####[facility] [address] [place], [address] Lymphocytes/100 WBC (Bld) 13.0 % Low 19-41 [facility] Comment on above: Order Comment: Order Date: 04/09/25Order Info: 0184-1 - CBCD Performed By: #### L 100.0100, L500.4050 ####[facility] [address] [place], [address] MCH (RBC) [Entitic mass] 29.4 pg Normal 27.0-32.0 [facility] Comment on above: Order Comment: Order Date: 04/09/25Order Info: 0184-1 - CBCD Performed By: #### L 100.0100, L500.4050 ####[facility] [address] [place], [address] MCHC (RBC) [Mass/Vol] 32.4 g/dL Normal 32-36 [facility] Comment on above: Order Comment: Order Date: 04/09/25Order Info: 0184-1 - CBCD Performed By: #### L 100.0100, L500.4050 ####[facility] [address] [place], [address] MCV (RBC) [Entitic vol] 90.7 fL Normal 81-[address] [facility] Comment on above: Order Comment: Order Date: 04/09/25Order Info: 0184-1 - CBCD Performed By: #### L 100.0100, L500.4050 ####[facility] [address] [place], [address] Monocytes/100 WBC (Bld) 9.1 % Normal 0-[address] [facility] Comment on above: Order Comment: Order Date: 04/09/25Order Info: 0184-1 - CBCD Performed By: #### L 100.0100, L500.4050 ####[facility] [address] [place], [address] Neutrophils/100 WBC (Bld) 75.6 % High 47-70 [facility] Comment on above: Order Comment: Order Date: 04/09/25Order Info: 0184-1 - CBCD Performed By: #### L 100.0100, L500.4050 ####[facility] [address] [place], [address] Nucleated RBC (Bld) [#/Vol] 0 10*3/uL Normal 0-5 [facility] Comment on above: Order Comment: Order Date: 04/09/25Order Info: 0184-1 - CBCD Performed By: #### L 100.0100, L500.4050 ####[facility] [address] [place], [address] Platelet mean volume (Bld) [Entitic vol] 11.1 fL Normal 6.2-12.0 [facility] Comment on above: Order Comment: Order Date: 04/09/25Order Info: 0184-1 - CBCD Performed By: #### L 100.0100, L500.4050 ####[facility] [address] [place], [address] Platelets (Bld) [#/Vol] 261 10*3/uL Normal 150-450 [facility] Comment on above: Order Comment: Order Date: 04/09/25Order Info: 0184-1 - CBCD Performed By: #### L 100.0100, L500.4050 ####[facility] [address] [place], [address] RBC (Bld) [#/Vol] 4.94 10*6/uL Normal 4.2-5.4 [facility] Comment on above: Order Comment: Order Date: 04/09/25Order Info: 0184-1 - CBCD Performed By: #### L 100.0100, L500.4050 ####[facility] [address] [place], [address] RDW SD 45.5 fl High 35.1-43.9 [facility] Comment on above: Order Comment: Order Date: 04/09/25Order Info: 0184-1 - CBCD Performed By: #### L 100.0100, L500.4050 ####[facility] [address] [place], [address] WBC (Bld) [#/Vol] 11.0 10*3/uL Normal 4.4-11.0 [facility] Comment on above: Order Comment: Order Date: 04/09/25Order Info: 0184-1 - CBCD Performed By: #### L 100.0100, L500.4050 ####[facility] [address] [place], [address] Carbon dioxide, total [Moles /volume] in Central venous bloodOrdered By: Kamar Grimes on 04-09-2025 CO2 [Moles/Vol] 46.1 mmol/L Critically high 21.0-32.0 [facility] Chloride assayOrdered By: Jennifer Grimes on 04-09-2025 Chloride [Moles/Vol] 71 mmol/L Critically low 98-108 [facility] Comprehensive Metabolic Prof ilon 04-09-2025 Albumin [Mass/Vol] 4.1 g/dL Normal 3.4-4.8 [facility] Comment on above: Order Comment: Order Date: 04/09/25Order Info: 0786-1 - CMP Performed By: #### L 100.0100, L500.4050 ####[facility] [address] [place], [address] Albumin/Globulin [Mass ratio] 1.2 {ratio} Normal 0.9-2.4 [facility] Comment on above: Order Comment: Order Date: 04/09/25Order Info: 0786-1 - CMP Performed By: #### L 100.0100, L500.4050 ####[facility] [address] [place], [address] ALK PHOS 161 U/L High 35-104 [facility] Comment on above: Order Comment: Order Date: 04/09/25Order Info: 0786-1 - CMP Performed By: #### L 100.0100, L500.4050 ####[facility] [address] [place], [address] ALT [Catalytic activity/Vol] 25 U/L Normal <=34 [facility] Comment on above: Order Comment: Order Date: 04/09/25Order Info: 0786-1 - CMP Performed By: #### L 100.0100, L500.4050 ####[facility] [address] [place], [address] AST [Catalytic activity/Vol] 39 U/L High <=31 [facility] Comment on above: Order Comment: Order Date: 04/09/25Order Info: 0786-1 - CMP Performed By: #### L 100.0100, L500.4050 ####[facility] [address] [place], [address] Bilirubin [Mass/Vol] 0.47 mg/dL Normal 0.00-1.30 [facility] Comment on above: Order Comment: Order Date: 04/09/25Order Info: 0786-1 - CMP Performed By: #### L 100.0100, L500.4050 ####[facility] [address] [place], [address] BUN/CRE 29.4 RATIO High 10-20 [facility] Comment on above: Order Comment: Order Date: 04/09/25Order Info: 0786-1 - CMP Performed By: #### L 100.0100, L500.4050 ####[facility] [address] [place], [address] Calcium [Mass/Vol] 10.3 mg/dL Normal 7.6-11.0 [facility] Comment on above: Order Comment: Order Date: 04/09/25Order Info: 0786-1 - CMP Performed By: #### L 100.0100, L500.4050 ####[facility] [address] [place], [address] Chloride [Moles/Vol] 71 mmol/L Invalid Interpretation Code 98-108 [facility] Comment on above: Order Comment: Order Date: 04/09/25Order Info: 0786-1 - CMP Result Comment: Crit ical Result(s) Called at: 1932 by:??PIERRE GASPAR TO DR.PAUL MUNIZ Results read back by same. Performed By: #### L 100.0100, L500.4050 ####[facility] [address] [place], [address] CO2 [Moles/Vol] 46.1 mmol/L Invalid Interpretation Code 21.0-32.0 [facility] Comment on above: Order Comment: Order Date: 04/09/25Order Info: 0786-1 - CMP Result Comment: Crit ical Result(s) Called at: 1932 by: PIERRE GASPAR TO DR.PAUL COTE??Results read back by same. Performed By: #### L 100.0100, L500.4050 ####[facility] [address] [place], [address] Creatinine [Mass/Vol] 1.61 mg/dL High 0.70-1.20 [facility] Comment on above: Order Comment: Order Date: 04/09/25Order Info: 0786-1 - CMP Performed By: #### L 100.0100, L500.4050 ####[facility] [address] [place], [address] GAP 11 Normal 5-15 [facility] Comment on above: Order Comment: Order Date: 04/09/25Order Info: 0786-1 - CMP Performed By: #### L 100.0100, L500.4050 ####[facility] [address] [place], [address] GFR/1.73 sq M.predicted among non-blacks MDRD (S/P/Bld) [Vol rate/Area] 33 mL/min/{1.73_m2} Low >60 [facility] Comment on above: Order Comment: Order Date: 04/09/25Order Info: 0786-1 - CMP Result Comment: mL/m in/1.73m2 CKD-EPI Creatinine Equation (2020) Performed By: #### L 100.0100, L500.4050 ####[facility] [address] [place], [address] Globulin (S) [Mass/Vol] 3.4 g/dL Normal 2.2-4.[address] [facility] Comment on above: Order Comment: Order Date: 04/09/25Order Info: 0786-1 - CMP Performed By: #### L 100.0100, L500.4050 ####[facility] [address] [place], [address] Glucose [Mass/Vol] 116 mg/dL High 70-99 [facility] Comment on above: Order Comment: Order Date: 04/09/25Order Info: 0786-1 - CMP Performed By: #### L 100.0100, L500.4050 ####[facility] [address] [place], [address] Potassium [Moles/Vol] 4.6 mmol/L Normal 3.3-5.1 [facility] Comment on above: Order Comment: Order Date: 04/09/25Order Info: 0786-1 - CMP Performed By: #### L 100.0100, L500.4050 ####[facility] [address] [place], [address] Sodium [Moles/Vol] 128 mmol/L Low 133-145 [facility] Comment on above: Order Comment: Order Date: 04/09/25Order Info: 0786-1 - CMP Performed By: #### L 100.0100, L500.4050 ####[facility] [address] [place], [place], [id number] T PROT 7.5 g/dL Normal 5.9-8.4 [facility] Comment on above: Order Comment: Order Date: 04/09/25Order Info: 0786-1 - CMP Performed By: #### L 100.0100, L500.4050 ####[facility] [address] [place], [address] Urea nitrogen [Mass/Vol] 47 mg/dL High 4-19 [facility] Comment on above: Order Comment: Order Date: 04/09/25Order Info: 0786-1 - CMP Performed By: #### L 100.0100, L500.4050 ####[facility] [address] [place], [address] Eosinophil percentageOrdered By: Kamar Grimes on 04-09-2025 Eosinophils/100 WBC (Bld) 1.0 % 0-5 [facility] Erythrocyte distribution wid th ratioOrdered By: Kamar Grimes on 04-09-2025 Erythrocyte distribution width (RBC) [Ratio] 13.7 % 11.6-14.6 [facility] Erythrocyte distribution wid th standard deviationOrdered By: Kamar Grimes on 04-09-2025 Erythrocyte distribution width (RBC) [Ratio] 45.5 fl High 35.1-43.9 [facility] Glomerular filtration rate ( GFR) estimation/1.73 sq m using serum, plasma, or whole bOrdered By: Kamar Grimes on 04-09-2025 GFR/1.73 sq M.predicted among non-blacks MDRD (S/P/Bld) [Vol rate/Area] 33 mL/min/{1.73_m2} Low >60 [facility] Hematocrit Auto (Bld) [Volum e fraction]Ordered By: Kamar Grimes on 04-09-2025 Hematocrit (Bld) [Volume fraction] 44.8 % 37-47 [facility] Hemoglobin measurementOrdere d By: Kamar Grimes on 04-09-2025 Hemoglobin (Bld) [Mass/Vol] 14.5 g/dL 12.0-15.0 [facility] Immature granulocytes/100 WB C Auto (Bld)Ordered By: Kamar Grimes on 04-09-2025 Immature granulocytes/100 WBC (Bld) 0.800 % 0.0-0.9 [facility] MCV (mean corpuscular volume ) determinationOrdered By: Kamar Grimes on 04-09-2025 MCV (RBC) [Entitic vol] 90.7 fL 81-99 [facility] Mean corpuscular hemoglobin (MCH) determinationOrdered By: Kamar Grimes on 04-09-2025 MCH (RBC) [Entitic mass] 29.4 pg 27.0-32.0 [facility] Monocyte percentageOrdered B y: Kamar Grimes on 04-09-2025 Monocytes/100 WBC (Bld) 9.1 % 0-10 [facility] Natriuretic peptide.B prohor mac N-Terminal [Mass/volume] in Serum or PlasmaOrdered By: Kamar Grimes on 04-09-2025 Natriuretic peptide.B prohormone N-Terminal [Mass/Vol] 198 pg/mL <1800 [facility] Neutrophil percentageOrdered By: Kamar Grimes on 04-09-2025 Neutrophils/100 WBC (Bld) 75.6 % High 47-70 [facility] No Panel InformationOrdered By: Kamar Grimes on 04-09-2025 39 U/L High <32 [facility] Platelet countOrdered By: Jennifer Grimes on 04-09-2025 Platelets (Bld) [#/Vol] 261 10*3/uL 150-450 [facility] Potassium measurement (mass/ volume)Ordered By: Kamar Grimes on 04-09-2025 Potassium (Unsp spec) [Mass/Vol] 4.6 mmol/L 3.3-5.1 [facility] Pro- Brain NATRIURETIC PEPTI Rita 04-09-2025 Natriuretic peptide B (Bld) [Mass/Vol] 198 pg/mL Normal <=1800 [facility] Comment on above: Order Comment: Order Date: 04/09/25Order Info: 0786-1 - CMP Result Comment: Hear t Failure Unlikely: < 300 pg/mLHeart Failure Likely< 50 Years: > 450 pg/mL50-75 Years: > 900 pg/mL>75 Years: > 1800 pg/mL Performed By: #### L 503.7505 ####[facility] [address] [place], [address] RBC Auto (Bld) [#/Vol]Ordere d By: Kamar Grimes on 04-09-2025 RBC (Bld) [#/Vol] 4.94 10*6/uL 4.2-5.4 [facility] Serum creatinine measurement (mass/volume)Ordered By: Kamar Grimes on 04-09-2025 Creatinine [Mass/Vol] 1.61 mg/dL High 0.70-1.20 [facility] Serum globulin measurementOr dered By: Kamar Grimes on 04-09-2025 Globulin (S) [Mass/Vol] 3.4 g/dL 2.2-4.[address] [facility] Serum glucose measurement (m ass/volume)Ordered By: Kamar Grimes on 04-09-2025 Glucose [Mass/Vol] 116 mg/dL High 70-99 [facility] Serum or plasma alanine gao otransferase (ALT) measurementOrdered By: Kamar Grimes on 04-09-2025 ALT [Catalytic activity/Vol] 25 U/L <35 [facility] Serum or plasma albumin lisa urement (mass/volume)Ordered By: Kamar Grimes on 04-09-2025 Albumin [Mass/Vol] 4.1 g/dL 3.4-4.8 [facility] Serum or plasma albumin/glob ulin mass ratioOrdered By: Kamar Grimes on 04-09-2025 Albumin/Globulin [Mass ratio] 1.2 {ratio} 0.9-2.4 [facility] Serum or plasma alkaline bee sphatase measurementOrdered By: Kamar Grimes on 04-09-2025 ALP [Catalytic activity/Vol] 161 U/L High 35-104 [facility] Serum or plasma calcium lisa urement (mass/volume)Ordered By: Kamar Grimes on 04-09-2025 Calcium [Mass/Vol] 10.3 mg/dL 7.6-11.0 [facility] Serum or plasma urea nitroge n measurement (mass/volume)Ordered By: Kamar Grimes on 04-09-2025 Urea nitrogen [Mass/Vol] 47 mg/dL High 10-19 [facility] Sodium levelOrdered By: Kamar Grimes on 04-09-2025 Sodium [Moles/Vol] 128 mmol/L Low 133-145 [facility] Total proteinOrdered By: Esmer Grimes on 04-09-2025 Protein [Mass/Vol] 7.5 g/dL 5.9-8.4 [facility] White blood cell (WBC) count Ordered By: Kamar Grimes on 04-09-2025 WBC (Bld) [#/Vol] 11.0 10*3/uL 4.4-11.0 [facility] Basic Metabolic Profile (BMP )on 03-27-2025 BUN Normal - [facility] Comment on above: Result Comment: Canc elled via OM: Order cancelled - Patient discharged Performed By: #### L 100.0100, L500.2500 ####[facility] [address] [place], [address] BUN/CRE Normal 10- [facility] Comment on above: Result Comment: Canc elled via OM: Order cancelled - Patient discharged Performed By: #### L 100.0100, L500.2500 ####[facility] [address] [place], [address] Calcium Normal 7.6-11.0 [facility] Comment on above: Result Comment: Canc elled via OM: Order cancelled - Patient discharged Performed By: #### L 100.0100, L500.2500 ####[facility] [address] [place], [address] CL Normal 98-108 [facility] Comment on above: Result Comment: Canc elled via OM: Order cancelled - Patient discharged Performed By: #### L 100.0100, L500.2500 ####[facility] [address] [place], [address] CO2 Normal 21.0-32.0 [facility] Comment on above: Result Comment: Canc elled via OM: Order cancelled - Patient discharged Performed By: #### L 100.0100, L500.2500 ####[facility] [address] [place], [address] CREAT,SERUM Normal 0.70-1.20 [facility] Comment on above: Result Comment: Canc elled via OM: Order cancelled - Patient discharged Performed By: #### L 100.0100, L500.2500 ####[facility] [address] [place], [address] eGFR Normal >60 [facility] Comment on above: Result Comment: Canc elled via OM: Order cancelled - Patient discharged Performed By: #### L 100.0100, L500.2500 ####[facility] [address] [place], [address] GAP Normal 5-15 [facility] Comment on above: Result Comment: Canc elled via OM: Order cancelled - Patient discharged Performed By: #### L 100.0100, L500.2500 ####[facility] [address] [place], [address] GLU Normal 70-99 [facility] Comment on above: Result Comment: Canc elled via OM: Order cancelled - Patient discharged Performed By: #### L 100.0100, L500.2500 ####[facility] [address] [place], [address] Potassium Normal 3.3-5.1 [facility] Comment on above: Result Comment: Canc elled via OM: Order cancelled - Patient discharged Performed By: #### L 100.0100, L500.2500 ####[facility] [address] [place], [address] Basic Metabolic Profile (BMP) Normal 133-145 [facility] Comment on above: Result Comment: Canc elled via OM: Order cancelled - Patient discharged Performed By: #### L 100.0100, L500.2500 ####[facility] [address] [place], [address] CBC W/Diff, Automatedon 09-2 -2024 Absolute Neut Normal 2.0-7.7 [facility] Comment on above: Result Comment: Canc elled via OM: Order cancelled - Patient discharged Performed By: #### L 100.0100, L500.2500 ####[facility] [address] [place], [address] HCT Normal 37-47 [facility] Comment on above: Result Comment: Canc elled via OM: Order cancelled - Patient discharged Performed By: #### L 100.0100, L500.2500 ####[facility] [address] [place], [address] HGB Normal 12.0-15.0 [facility] Comment on above: Result Comment: Canc elled via OM: Order cancelled - Patient discharged Performed By: #### L 100.0100, L500.2500 ####[facility] [address] [place], [address] MCH Normal 27.0-32.0 [facility] Comment on above: Result Comment: Canc elled via OM: Order cancelled - Patient discharged Performed By: #### L 100.0100, L500.2500 ####[facility] [address] [place], [address] MCHC Normal 32-36 [facility] Comment on above: Result Comment: Canc elled via OM: Order cancelled - Patient discharged Performed By: #### L 100.0100, L500.2500 ####[facility] [address] [place], [address] MCV Normal 81-99 [facility] Comment on above: Result Comment: Canc elled via OM: Order cancelled - Patient discharged Performed By: #### L 100.0100, L500.2500 ####[facility] [address] [place], [address] NEUT% Normal 47-70 [facility] Comment on above: Result Comment: Canc elled via OM: Order cancelled - Patient discharged Performed By: #### L 100.0100, L500.2500 ####[facility] [address] [place], [address] PLT Normal 150-450 [facility] Comment on above: Result Comment: Canc elled via OM: Order cancelled - Patient discharged Performed By: #### L 100.0100, L500.2500 ####[facility] [address] [place], [address] RBC Normal 4.2-5.4 [facility] Comment on above: Result Comment: Canc elled via OM: Order cancelled - Patient discharged Performed By: #### L 100.0100, L500.2500 ####[facility] [address] [place], [address] RDW CV Normal 11.6-14.6 [facility] Comment on above: Result Comment: Canc elled via OM: Order cancelled - Patient discharged Performed By: #### L 100.0100, L500.2500 ####[facility] [address] [place], [address] RDW SD Normal 35.1-43.9 [facility] Comment on above: Result Comment: Canc elled via OM: Order cancelled - Patient discharged Performed By: #### L 100.0100, L500.2500 ####[facility] [address] [place], [address] WBC Normal 4.4-11.0 [facility] Comment on above: Result Comment: Canc elled via OM: Order cancelled - Patient discharged Performed By: #### L 100.0100, L500.2500 ####[facility] [address] [place], [address] Absolute lymphocyte countOrd ered By: Otilia Gosscristofer on 03-26-2025 Lymphocytes Auto (Unsp spec) [#/Vol] 0.81 10*3/uL Low 0.83-4.51 [facility] Anion gap in Serum or Plasma Ordered By: Otiliashanon Hernandez on 03-26-2025 Anion gap [Moles/Vol] 7 mmol/L 5-15 [facility] Automated blood erythrocyte countOrdered By: Otiliashanon Hernandez on 03-26-2025 RBC (Bld) [#/Vol] 3.78 10*6/uL Low 4.2-5.4 [facility] Comment on above: Performed By: #### L 500.2500, L100.0100 ####[facility] [address] [place], [address] Automated blood hematocrit ( percentage)Ordered By: Otiliashanon Hernandez on 03-26-2025 Hematocrit (Bld) [Volume fraction] 35.8 % Low 37-47 [facility] Comment on above: Performed By: #### L 500.2500, L100.0100 ####[facility] [address] [place], [address] Automated lymphocyte count a s percentage of total leukocytesOrdered By: Otiliashanon Hernandez on 03-26-2025 Lymphocytes/100 WBC Auto (Unsp spec) 9.6 % Low 19-41 [facility] BUN/creatinine ratioOrdered By: Otiliashanon Hernandez on 03-26-2025 Urea nitrogen/Creatinine [Mass ratio] 26.4 mg/mg High 10-20 [facility] Basic Metabolic Profile (BMP )on 03-26-2025 BUN/CRE 26.4 RATIO High - [facility] Comment on above: Performed By: #### L 500.2500, L100.0100 ####[facility] [address] [place], [address] ECRCL 79.11 ml/min Normal 50-250 [facility] Comment on above: Performed By: #### L 500.2500, L100.0100 ####[facility] [address] [place], [address] GAP 7 Normal 5-15 [facility] Comment on above: Performed By: #### L 500.2500, L100.0100 ####[facility] [address] [place], [address] Potassium [Moles/Vol] 3.9 mmol/L Normal 3.3-5.1 [facility] Comment on above: Performed By: #### L 500.2500, L100.0100 ####[facility] [address] [place], [address] Basophil percentageOrdered B y: Otilia Hernandez on 03-26-2025 Basophils/100 WBC (Bld) 0.2 % Normal 0-1 [facility] Comment on above: Performed By: #### L 500.2500, L100.0100 ####[facility] [address] [place], [address] CBC W/Diff, Automatedon 03-04 Absolute Lymph 0.81 X10 3/uL Low 0.83-4.51 [facility] Comment on above: Performed By: #### L 500.2500, L100.0100 ####[facility] [address] [place], [address] Absolute Neut 6.6 X10 3/uL Normal 2.0-7.7 [facility] Comment on above: Performed By: #### L 500.2500, L100.0100 ####[facility] [address] [place], [address] IG% 0.600 Normal 0.0-0.9 [facility] Comment on above: Result Comment: IG% - Immature Granulocytes (promyelocytes, myelocytes andmetamyelocytes) > 1% indicates that a LEFT SHIFT is Present. Performed By: #### L 500.2500, L100.0100 ####[facility] [address] [place], [address] Lymphocytes/100 WBC (Bld) 9.6 % Low 19-41 [facility] Comment on above: Performed By: #### L 500.2500, L100.0100 ####[facility] [address] [place], [address] MCHC (RBC) [Mass/Vol] 31.0 g/dL Low 32-36 [facility] Comment on above: Performed By: #### L 500.2500, L100.0100 ####[facility] [address] [place], [address] Nucleated RBC (Bld) [#/Vol] 0 10*3/uL Normal 0-5 [facility] Comment on above: Performed By: #### L 500.2500, L100.0100 ####[facility] [address] [place], [address] Platelet mean volume (Bld) [Entitic vol] 9.7 fL Normal 6.2-12.0 [facility] Comment on above: Performed By: #### L 500.2500, L100.0100 ####[facility] [address] [place], [address] RDW SD 48.9 fl High 35.1-43.9 [facility] Comment on above: Performed By: #### L 500.2500, L100.0100 ####[facility] [address] [place], [address] Carbon dioxide, total [Moles /volume] in Central venous bloodOrdered By: Otilia Hernandez on 03-26-2025 CO2 [Moles/Vol] 38.2 mmol/L High 21.0-32.0 [facility] Comment on above: Performed By: #### L 500.2500, L100.0100 ####[facility] [address] [place], [address] Chloride assayOrdered By: Emelina Hernandez on 03-26-2025 Chloride [Moles/Vol] 94 mmol/L Low 98-108 [facility] Comment on above: Performed By: #### L 500.2500, L100.0100 ####[facility] [address] [place], [address] Eosinophil percentageOrdered By: Otilia Hernandez on 03-26-2025 Eosinophils/100 WBC (Bld) 1.5 % Normal 0-5 [facility] Comment on above: Performed By: #### L 500.2500, L100.0100 ####[facility] [address] [place], [address] Erythrocyte distribution wid th ratioOrdered By: Otilia Hernandez on 03-26-2025 Erythrocyte distribution width (RBC) [Ratio] 14.1 % Normal 11.6-14.6 [facility] Comment on above: Performed By: #### L 500.2500, L100.0100 ####[facility] [address] [place], [address] Erythrocyte distribution wid th standard deviationOrdered By: Otilia Hernandez on 03-26-2025 Erythrocyte distribution width (RBC) [Ratio] 48.9 fl High 35.1-43.9 [facility] Glomerular filtration rate ( GFR) estimation/1.73 sq m using serum, plasma, or whole bOrdered By: Otilia Hernandez on 03-26-2025 GFR/1.73 sq M.predicted among non-blacks MDRD (S/P/Bld) [Vol rate/Area] 90 mL/min/{1.73_m2} Normal >60 [facility] Comment on above: Result Comment: mL/m in/1.73m2 CKD-EPI Creatinine Equation (2020) Performed By: #### L 500.2500, L100.0100 ####[facility] [address] [place], [address] Hemoglobin measurementOrdere d By: Otilia Gosscristofer on 03-26-2025 Hemoglobin (Bld) [Mass/Vol] 11.1 g/dL Low 12.0-15.0 [facility] Comment on above: Performed By: #### L 500.2500, L100.0100 ####[facility] [address] [place], [address] Immature granulocytes/100 WB C Auto (Bld)Ordered By: Otiliashanon Hernandez on 03-26-2025 Immature granulocytes/100 WBC (Bld) 0.600 % 0.0-0.9 [facility] MCV (mean corpuscular volume ) determinationOrdered By: Otilia Hernandez on 03-26-2025 MCV (RBC) [Entitic vol] 94.7 fL Normal 81-99 [facility] Comment on above: Performed By: #### L 500.2500, L100.0100 ####[facility] [address] [place], [address] Mean corpuscular hemoglobin (MCH) determinationOrdered By: Otiliashanon Hernandez on 03-26-2025 MCH (RBC) [Entitic mass] 29.4 pg Normal 27.0-32.0 [facility] Comment on above: Performed By: #### L 500.2500, L100.0100 ####[facility] [address] [place], [address] Monocyte percentageOrdered B y: Otilia Hernandez on 03-26-2025 Monocytes/100 WBC (Bld) 10.1 % High 0-10 [facility] Comment on above: Performed By: #### L 500.2500, L100.0100 ####[facility] [address] [place], [address] Neutrophil percentageOrdered By: Otilia Hernandez on 03-26-2025 Neutrophils/100 WBC (Bld) 78.0 % High 47-70 [facility] Comment on above: Performed By: #### L 500.2500, L100.0100 ####[facility] [address] [place], [address] Platelet countOrdered By: Emelina devine David on 03-26-2025 Platelets (Bld) [#/Vol] 169 10*3/uL Normal 150-450 [facility] Comment on above: Performed By: #### L 500.2500, L100.0100 ####[facility] [address] [place], [address] Potassium measurement (mass/ volume)Ordered By: Otiliashanon Hernandez on 03-26-2025 Potassium (Unsp spec) [Mass/Vol] 3.9 mmol/L 3.3-5.1 [facility] Serum creatinine measurement (mass/volume)Ordered By: Otilia Hernandez on 03-26-2025 Creatinine [Mass/Vol] 0.68 mg/dL Low 0.70-1.20 [facility] Comment on above: Performed By: #### L 500.2500, L100.0100 ####[facility] [address] [place], [address] Serum glucose measurement (m ass/volume)Ordered By: Otiliashanon Hernandez on 03-26-2025 Glucose [Mass/Vol] 98 mg/dL Normal 70-99 [facility] Comment on above: Performed By: #### L 500.2500, L100.0100 ####[facility] [address] [place], [address] Serum or plasma calcium lisa urement (mass/volume)Ordered By: Otiliashanon Hernandez on 03-26-2025 Calcium [Mass/Vol] 8.7 mg/dL Normal 7.6-11.0 [facility] Comment on above: Performed By: #### L 500.2500, L100.0100 ####[facility] [address] [place], [address] Serum or plasma urea nitroge n measurement (mass/volume)Ordered By: Otilia Hernandez on 03-26-2025 Urea nitrogen [Mass/Vol] 18 mg/dL Normal 4-19 [facility] Comment on above: Performed By: #### L 500.2500, L100.0100 ####[facility] [address] [place], [address] Sodium levelOrdered By: Otilia Hernandez on 03-26-2025 Sodium [Moles/Vol] 139 mmol/L Normal 133-145 [facility] Comment on above: Performed By: #### L 500.2500, L100.0100 ####[facility] [address] [place], [address] White blood cell (WBC) count Ordered By: Otilia Hernandez on 03-26-2025 WBC (Bld) [#/Vol] 8.5 10*3/uL Normal 4.4-11.0 [facility] Comment on above: Performed By: #### L 500.2500, L100.0100 ####[facility] [address] [place], [address] Basic Metabolic Profile (BMP )on 03-25-2025 BUN/CRE 27.9 RATIO High 10-20 [facility] Comment on above: Performed By: #### L 500.2500, L100.0100 ####[facility] [address] [place], [address] Calcium [Mass/Vol] 8.8 mg/dL Normal 7.6-11.0 [facility] Comment on above: Performed By: #### L 500.2500, L100.0100 ####[facility] [address] [place], [address] Chloride [Moles/Vol] 99 mmol/L Normal 98-108 [facility] Comment on above: Performed By: #### L 500.2500, L100.0100 ####[facility] [address] [place], [address] CO2 [Moles/Vol] 35.9 mmol/L High 21.0-32.0 [facility] Comment on above: Performed By: #### L 500.2500, L100.0100 ####[facility] [address] [place], [address] Creatinine [Mass/Vol] 0.72 mg/dL Normal 0.70-1.20 [facility] Comment on above: Performed By: #### L 500.2500, L100.0100 ####[facility] [address] [place], [address] ECRCL 80.24 ml/min Normal 50-250 [facility] Comment on above: Performed By: #### L 500.2500, L100.0100 ####[facility] [address] [place], [address] GAP 5 Normal 5-15 [facility] Comment on above: Performed By: #### L 500.2500, L100.0100 ####[facility] [address] [place], [address] GFR/1.73 sq M.predicted among non-blacks MDRD (S/P/Bld) [Vol rate/Area] 86 mL/min/{1.73_m2} Normal >60 [facility] Comment on above: Result Comment: mL/m in/1.73m2 CKD-EPI Creatinine Equation (2020) Performed By: #### L 500.2500, L100.0100 ####[facility] [address] [place], [address] Glucose [Mass/Vol] 105 mg/dL High 70-99 [facility] Comment on above: Performed By: #### L 500.2500, L100.0100 ####[facility] [address] [place], [address] Potassium [Moles/Vol] 4.5 mmol/L Normal 3.3-5.1 [facility] Comment on above: Performed By: #### L 500.2500, L100.0100 ####[facility] [address] [place], [address] Sodium [Moles/Vol] 140 mmol/L Normal 133-145 [facility] Comment on above: Performed By: #### L 500.2500, L100.0100 ####[facility] [address] [place], [address] Urea nitrogen [Mass/Vol] 20 mg/dL High 4-19 [facility] Comment on above: Performed By: #### L 500.2500, L100.0100 ####[facility] [address] [place], [address] CBC W/Diff, Automatedon 03-04-2024 Absolute Lymph 0.86 X10 3/uL Normal 0.83-4.51 [facility] Comment on above: Performed By: #### L 500.2500, L100.0100 ####[facility] [address] [place], [address] Absolute Neut 7.2 X10 3/uL Normal 2.0-7.7 [facility] Comment on above: Performed By: #### L 500.2500, L100.0100 ####[facility] [address] [place], [address] Basophils/100 WBC (Bld) 0.2 % Normal 0-1 [facility] Comment on above: Performed By: #### L 500.2500, L100.0100 ####[facility] [address] [place], [address] Eosinophils/100 WBC (Bld) 1.4 % Normal 0-5 [facility] Comment on above: Performed By: #### L 500.2500, L100.0100 ####[facility] [address] [place], [address] Erythrocyte distribution width (RBC) [Ratio] 14.6 % Normal 11.6-14.6 [facility] Comment on above: Performed By: #### L 500.2500, L100.0100 ####[facility] [address] [place], [address] Hematocrit (Bld) [Volume fraction] 36.8 % Low 37-47 [facility] Comment on above: Performed By: #### L 500.2500, L100.0100 ####[facility] [address] [place], [address] Hemoglobin (Bld) [Mass/Vol] 11.3 g/dL Low 12.0-15.0 [facility] Comment on above: Performed By: #### L 500.2500, L100.0100 ####[facility] [address] [place], [address] IG% 0.500 Normal 0.0-0.9 [facility] Comment on above: Result Comment: IG% - Immature Granulocytes (promyelocytes, myelocytes andmetamyelocytes) > 1% indicates that a LEFT SHIFT is Present. Performed By: #### L 500.2500, L100.0100 ####[facility] [address] [place], [address] Lymphocytes/100 WBC (Bld) 9.4 % Low 19-41 [facility] Comment on above: Performed By: #### L 500.2500, L100.0100 ####[facility] [address] [place], [address] MCH (RBC) [Entitic mass] 30.2 pg Normal 27.0-32.0 [facility] Comment on above: Performed By: #### L 500.2500, L100.0100 ####[facility] [address] [place], [address] MCHC (RBC) [Mass/Vol] 30.7 g/dL Low 32-36 [facility] Comment on above: Performed By: #### L 500.2500, L100.0100 ####[facility] [address] [place], [address] MCV (RBC) [Entitic vol] 98.4 fL Normal 81-99 [facility] Comment on above: Performed By: #### L 500.2500, L100.0100 ####[facility] [address] [place], [address] Monocytes/100 WBC (Bld) 9.3 % Normal 0-[address] [facility] Comment on above: Performed By: #### L 500.2500, L100.0100 ####[facility] [address] [place], [address] Neutrophils/100 WBC (Bld) 79.2 % High 47-70 [facility] Comment on above: Performed By: #### L 500.2500, L100.0100 ####[facility] [address] [place], [address] Nucleated RBC (Bld) [#/Vol] 0 10*3/uL Normal 0-5 [facility] Comment on above: Performed By: #### L 500.2500, L100.0100 ####[facility] [address] [place], [address] Platelet mean volume (Bld) [Entitic vol] 10.1 fL Normal 6.2-12.0 [facility] Comment on above: Performed By: #### L 500.2500, L100.0100 ####[facility] [address] [place], [address] Platelets (Bld) [#/Vol] 143 10*3/uL Low 150-450 [facility] Comment on above: Performed By: #### L 500.2500, L100.0100 ####[facility] [address] [place], [address] RBC (Bld) [#/Vol] 3.74 10*6/uL Low 4.2-5.4 [facility] Comment on above: Performed By: #### L 500.2500, L100.0100 ####[facility] [address] [place], [address] RDW SD 52.7 fl High 35.1-43.9 [facility] Comment on above: Performed By: #### L 500.2500, L100.0100 ####[facility] [address] [place], [address] WBC (Bld) [#/Vol] 9.1 10*3/uL Normal 4.4-11.0 [facility] Comment on above: Performed By: #### L 500.2500, L100.0100 ####[facility] [address] [place], [address] Basic Metabolic Profile (BMP )on 03-24-2025 BUN/CRE 37.2 RATIO High 10-20 [facility] Comment on above: Performed By: #### L 100.0100, L500.2500 ####[facility] [address] [place], [address] Calcium [Mass/Vol] 8.9 mg/dL Normal 7.6-11.0 [facility] Comment on above: Performed By: #### L 100.0100, L500.2500 ####[facility] [address] [place], [address] Chloride [Moles/Vol] 101 mmol/L Normal 98-108 [facility] Comment on above: Performed By: #### L 100.0100, L500.2500 ####[facility] [address] [place], [address] CO2 [Moles/Vol] 32.9 mmol/L High 21.0-32.0 [facility] Comment on above: Performed By: #### L 100.0100, L500.2500 ####[facility] [address] [place], [address] Creatinine [Mass/Vol] 0.83 mg/dL Normal 0.70-1.20 [facility] Comment on above: Performed By: #### L 100.0100, L500.2500 ####[facility] [address] [place], [address] ECRCL 77.67 ml/min Normal 50-250 [facility] Comment on above: Performed By: #### L 100.0100, L500.2500 ####[facility] [address] [place], [address] GAP 7 Normal 5-15 [facility] Comment on above: Performed By: #### L 100.0100, L500.2500 ####[facility] [address] [place], [address] GFR/1.73 sq M.predicted among non-blacks MDRD (S/P/Bld) [Vol rate/Area] 73 mL/min/{1.73_m2} Normal >60 [facility] Comment on above: Result Comment: mL/m in/1.73m2 CKD-EPI Creatinine Equation (2020) Performed By: #### L 100.0100, L500.2500 ####[facility] [address] [place], [address] Glucose [Mass/Vol] 109 mg/dL High 70-99 [facility] Comment on above: Performed By: #### L 100.0100, L500.2500 ####[facility] [address] [place], [address] Potassium [Moles/Vol] 4.3 mmol/L Normal 3.3-5.1 [facility] Comment on above: Performed By: #### L 100.0100, L500.2500 ####[facility] [address] [place], [address] Sodium [Moles/Vol] 141 mmol/L Normal 133-145 [facility] Comment on above: Performed By: #### L 100.0100, L500.2500 ####[facility] [address] [place], [address] Urea nitrogen [Mass/Vol] 31 mg/dL High 4-19 [facility] Comment on above: Performed By: #### L 100.0100, L500.2500 ####[facility] [address] [place], [address] CBC W/Diff, Automatedon 03-04-2024 Absolute Lymph 1.03 X10 3/uL Normal 0.83-4.51 [facility] Comment on above: Performed By: #### L 100.0100, L500.2500 ####[facility] [address] [place], [address] Absolute Neut 8.0 X10 3/uL High 2.0-7.7 [facility] Comment on above: Performed By: #### L 100.0100, L500.2500 ####[facility] [address] [place], [address] Basophils/100 WBC (Bld) 0.2 % Normal 0-1 [facility] Comment on above: Performed By: #### L 100.0100, L500.2500 ####[facility] [address] [place], [address] Eosinophils/100 WBC (Bld) 2.0 % Normal 0-5 [facility] Comment on above: Performed By: #### L 100.0100, L500.2500 ####[facility] [address] [place], [address] Erythrocyte distribution width (RBC) [Ratio] 15.1 % High 11.6-14.6 [facility] Comment on above: Performed By: #### L 100.0100, L500.2500 ####[facility] [address] [place], [address] Hematocrit (Bld) [Volume fraction] 38.0 % Normal 37-47 [facility] Comment on above: Performed By: #### L 100.0100, L500.2500 ####[facility] [address] [place], [address] Hemoglobin (Bld) [Mass/Vol] 11.5 g/dL Low 12.0-15.0 [facility] Comment on above: Performed By: #### L 100.0100, L500.2500 ####[facility] [address] [place], [address] IG% 0.500 Normal 0.0-0.9 [facility] Comment on above: Result Comment: IG% - Immature Granulocytes (promyelocytes, myelocytes andmetamyelocytes) > 1% indicates that a LEFT SHIFT is Present. Performed By: #### L 100.0100, L500.2500 ####[facility] [address] [place], [address] Lymphocytes/100 WBC (Bld) 9.8 % Low 19-41 [facility] Comment on above: Performed By: #### L 100.0100, L500.2500 ####[facility] [address] [place], [address] MCH (RBC) [Entitic mass] 29.9 pg Normal 27.0-32.0 [facility] Comment on above: Performed By: #### L 100.0100, L500.2500 ####[facility] [address] [place], [address] MCHC (RBC) [Mass/Vol] 30.3 g/dL Low 32-36 [facility] Comment on above: Performed By: #### L 100.0100, L500.2500 ####[facility] [address] [place], [address] MCV (RBC) [Entitic vol] 98.7 fL Normal 81-99 [facility] Comment on above: Performed By: #### L 100.0100, L500.2500 ####[facility] [address] [place], [address] Monocytes/100 WBC (Bld) 12.2 % High 0-10 [facility] Comment on above: Performed By: #### L 100.0100, L500.2500 ####[facility] [address] [place], [address] Neutrophils/100 WBC (Bld) 75.3 % High 47-70 [facility] Comment on above: Performed By: #### L 100.0100, L500.2500 ####[facility] [address] [place], [address] Nucleated RBC (Bld) [#/Vol] 0 10*3/uL Normal 0-5 [facility] Comment on above: Performed By: #### L 100.0100, L500.2500 ####[facility] [address] [place], [address] Platelet mean volume (Bld) [Entitic vol] 10.3 fL Normal 6.2-12.0 [facility] Comment on above: Performed By: #### L 100.0100, L500.2500 ####[facility] [address] [place], [address] Platelets (Bld) [#/Vol] 152 10*3/uL Normal 150-450 [facility] Comment on above: Performed By: #### L 100.0100, L500.2500 ####[facility] [address] [place], [address] RBC (Bld) [#/Vol] 3.85 10*6/uL Low 4.2-5.4 [facility] Comment on above: Performed By: #### L 100.0100, L500.2500 ####[facility] [address] [place], [address] RDW SD 54.4 fl High 35.1-43.9 [facility] Comment on above: Performed By: #### L 100.0100, L500.2500 ####[facility] [address] [place], [address] WBC (Bld) [#/Vol] 10.6 10*3/uL Normal 4.4-11.0 [facility] Comment on above: Performed By: #### L 100.0100, L500.2500 ####[facility] [address] [place], [address] Basic Metabolic Profile (BMP )on 03-23-2025 BUN/CRE 33.2 RATIO High 10-20 [facility] Comment on above: Performed By: #### L 100.0100, L500.2500 ####[facility] [address] [place], [address] Calcium [Mass/Vol] 8.6 mg/dL Normal 7.6-11.0 [facility] Comment on above: Performed By: #### L 100.0100, L500.2500 ####[facility] [address] [place], [address] Chloride [Moles/Vol] 105 mmol/L Normal 98-108 [facility] Comment on above: Performed By: #### L 100.0100, L500.2500 ####[facility] [address] [place], [address] CO2 [Moles/Vol] 32.2 mmol/L High 21.0-32.0 [facility] Comment on above: Performed By: #### L 100.0100, L500.2500 ####[facility] [address] [place], [address] Creatinine [Mass/Vol] 1.21 mg/dL High 0.70-1.20 [facility] Comment on above: Performed By: #### L 100.0100, L500.2500 ####[facility] [address] [place], [address] ECRCL 53.50 ml/min Normal 50-250 [facility] Comment on above: Performed By: #### L 100.0100, L500.2500 ####[facility] [address] [place], [address] GAP 9 Normal 5-15 [facility] Comment on above: Performed By: #### L 100.0100, L500.2500 ####[facility] [address] [place], [address] GFR/1.73 sq M.predicted among non-blacks MDRD (S/P/Bld) [Vol rate/Area] 46 mL/min/{1.73_m2} Low >60 [facility] Comment on above: Result Comment: mL/m in/1.73m2 CKD-EPI Creatinine Equation (2020) Performed By: #### L 100.0100, L500.2500 ####[facility] [address] [place], [address] Glucose [Mass/Vol] 90 mg/dL Normal 70-99 [facility] Comment on above: Performed By: #### L 100.0100, L500.2500 ####[facility] [address] [place], [address] Potassium [Moles/Vol] 4.0 mmol/L Normal 3.3-5.1 [facility] Comment on above: Result Comment: Hemo lysis present, Results??could be affected.?? Performed By: #### L 100.0100, L500.2500 ####[facility] [address] [place], [address] Sodium [Moles/Vol] 147 mmol/L High 133-145 [facility] Comment on above: Performed By: #### L 100.0100, L500.2500 ####[facility] [address] [place], [address] Urea nitrogen [Mass/Vol] 40 mg/dL High 4-19 [facility] Comment on above: Performed By: #### L 100.0100, L500.2500 ####[facility] [address] [place], [address] Bedside Glucoseon 03-23-2024 FINGERSTICK GLU 118 mg/dL High 74-106 [facility] Comment on above: Result Comment: ROSA ISELA BUSTAMANTE OF PATIENT CARE PER NURSING PROTOCOL Performed By: #### L 501.080 ####[facility] [address] [place], [address] CBC W/Diff, Automatedon 03-04 Absolute Lymph 1.83 X10 3/uL Normal 0.83-4.51 [facility] Comment on above: Performed By: #### L 100.0100, L500.2500 ####[facility] [address] [place], [address] Absolute Neut 8.5 X10 3/uL High 2.0-7.7 [facility] Comment on above: Performed By: #### L 100.0100, L500.2500 ####[facility] [address] [place], [address] Basophils/100 WBC (Bld) 0.2 % Normal 0-1 [facility] Comment on above: Performed By: #### L 100.0100, L500.2500 ####[facility] [address] [place], [address] Eosinophils/100 WBC (Bld) 1.6 % Normal 0-5 [facility] Comment on above: Performed By: #### L 100.0100, L500.2500 ####[facility] [address] [place], [address] Erythrocyte distribution width (RBC) [Ratio] 15.1 % High 11.6-14.6 [facility] Comment on above: Performed By: #### L 100.0100, L500.2500 ####[facility] [address] [place], [address] Hematocrit (Bld) [Volume fraction] 37.5 % Normal 37-47 [facility] Comment on above: Performed By: #### L 100.0100, L500.2500 ####[facility] [address] [place], [address] Hemoglobin (Bld) [Mass/Vol] 11.5 g/dL Low 12.0-15.0 [facility] Comment on above: Performed By: #### L 100.0100, L500.2500 ####[facility] [address] [place], [address] IG% 0.500 Normal 0.0-0.9 [facility] Comment on above: Result Comment: IG% - Immature Granulocytes (promyelocytes, myelocytes andmetamyelocytes) > 1% indicates that a LEFT SHIFT is Present. Performed By: #### L 100.0100, L500.2500 ####[facility] [address] [place], [address] Lymphocytes/100 WBC (Bld) 15.5 % Low 19-41 [facility] Comment on above: Performed By: #### L 100.0100, L500.2500 ####[facility] [address] [place], [address] MCH (RBC) [Entitic mass] 29.6 pg Normal 27.0-32.0 [facility] Comment on above: Performed By: #### L 100.0100, L500.2500 ####[facility] [address] [place], [address] MCHC (RBC) [Mass/Vol] 30.7 g/dL Low 32-36 [facility] Comment on above: Performed By: #### L 100.0100, L500.2500 ####[facility] [address] [place], [address] MCV (RBC) [Entitic vol] 96.6 fL Normal 81-99 [facility] Comment on above: Performed By: #### L 100.0100, L500.2500 ####[facility] [address] [place], [address] Monocytes/100 WBC (Bld) 9.8 % Normal 0-[address] [facility] Comment on above: Performed By: #### L 100.0100, L500.2500 ####[facility] [address] [place], [address] Neutrophils/100 WBC (Bld) 72.4 % High 47-70 [facility] Comment on above: Performed By: #### L 100.0100, L500.2500 ####[facility] [address] [place], [address] Nucleated RBC (Bld) [#/Vol] 0 10*3/uL Normal 0-5 [facility] Comment on above: Performed By: #### L 100.0100, L500.2500 ####[facility] [address] [place], [address] Platelet mean volume (Bld) [Entitic vol] 10.6 fL Normal 6.2-12.0 [facility] Comment on above: Performed By: #### L 100.0100, L500.2500 ####[facility] [address] [place], [address] Platelets (Bld) [#/Vol] 153 10*3/uL Normal 150-450 [facility] Comment on above: Performed By: #### L 100.0100, L500.2500 ####[facility] [address] [place], [address] RBC (Bld) [#/Vol] 3.88 10*6/uL Low 4.2-5.4 [facility] Comment on above: Performed By: #### L 100.0100, L500.2500 ####[facility] [address] [place], [address] RDW SD 53.0 fl High 35.1-43.9 [facility] Comment on above: Performed By: #### L 100.0100, L500.2500 ####[facility] [address] [place], [address] WBC (Bld) [#/Vol] 11.8 10*3/uL High 4.4-11.0 [facility] Comment on above: Performed By: #### L 100.0100, L500.2500 ####[facility] [address] [place], [address] Culture, Blood (WB)on 2024 CUB Blood cultures x2, f rom two different sites No growth in 5 days. Normal [facility] Comment on above: Performed By: #### L 300.3900, L300.4310, L503.6005, M200.1000 ####[facility] [address] [place], [address] Basic Metabolic Profile (BMP )on 03-22-2025 BUN/CRE 37.1 RATIO High 10-20 [facility] Comment on above: Performed By: #### L 100.0100, L500.2500 ####[facility] [address] [place], [address] Calcium [Mass/Vol] 8.6 mg/dL Normal 7.6-11.0 [facility] Comment on above: Performed By: #### L 100.0100, L500.2500 ####[facility] [address] [place], [address] Chloride [Moles/Vol] 103 mmol/L Normal 98-108 [facility] Comment on above: Performed By: #### L 100.0100, L500.2500 ####[facility] [address] [place], [address] CO2 [Moles/Vol] 32.5 mmol/L High 21.0-32.0 [facility] Comment on above: Performed By: #### L 100.0100, L500.2500 ####[facility] [address] [place], [address] Creatinine [Mass/Vol] 1.10 mg/dL Normal 0.70-1.20 [facility] Comment on above: Performed By: #### L 100.0100, L500.2500 ####[facility] [address] [place], [address] ECRCL 56.98 ml/min Normal 50-250 [facility] Comment on above: Performed By: #### L 100.0100, L500.2500 ####[facility] [address] [place], [address] GAP 7 Normal 5-15 [facility] Comment on above: Performed By: #### L 100.0100, L500.2500 ####[facility] [address] [place], [address] GFR/1.73 sq M.predicted among non-blacks MDRD (S/P/Bld) [Vol rate/Area] 52 mL/min/{1.73_m2} Low >60 [facility] Comment on above: Result Comment: mL/m in/1.73m2 CKD-EPI Creatinine Equation (2020) Performed By: #### L 100.0100, L500.2500 ####[facility] [address] [place], [address] Glucose [Mass/Vol] 122 mg/dL High 70-99 [facility] Comment on above: Performed By: #### L 100.0100, L500.2500 ####[facility] [address] [place], [address] Potassium [Moles/Vol] 3.6 mmol/L Normal 3.3-5.1 [facility] Comment on above: Performed By: #### L 100.0100, L500.2500 ####[facility] [address] [place], [address] Sodium [Moles/Vol] 142 mmol/L Normal 133-145 [facility] Comment on above: Performed By: #### L 100.0100, L500.2500 ####[facility] [address] [place], [address] Urea nitrogen [Mass/Vol] 41 mg/dL High 4-19 [facility] Comment on above: Performed By: #### L 100.0100, L500.2500 ####[facility] [address] [place], [address] CBC W/Diff, Automatedon 09-2 0-2025 Absolute Lymph 0.61 X10 3/uL Low 0.83-4.51 [facility] Comment on above: Performed By: #### L 100.0100, L500.2500 ####[facility] [address] [place], [address] Absolute Neut 10.8 X10 3/uL High 2.0-7.7 [facility] Comment on above: Performed By: #### L 100.0100, L500.2500 ####[facility] [address] [place], [address] Basophils/100 WBC (Bld) 0.1 % Normal 0-1 [facility] Comment on above: Performed By: #### L 100.0100, L500.2500 ####[facility] [address] [place], [address] Eosinophils/100 WBC (Bld) 0.0 % Normal 0-5 [facility] Comment on above: Performed By: #### L 100.0100, L500.2500 ####[facility] [address] [place], [address] Erythrocyte distribution width (RBC) [Ratio] 15.0 % High 11.6-14.6 [facility] Comment on above: Performed By: #### L 100.0100, L500.2500 ####[facility] [facility] [address] [place], [address] Hematocrit (Bld) [Volume fraction] 37.2 % Normal 37-47 [facility] Comment on above: Performed By: #### L 100.0100, L500.2500 ####[facility] [address] [place], [address] Hemoglobin (Bld) [Mass/Vol] 11.7 g/dL Low 12.0-15.0 [facility] Comment on above: Performed By: #### L 100.0100, L500.2500 ####[facility] [address] [place], [address] IG% 0.600 Normal 0.0-0.9 [facility] Comment on above: Result Comment: IG% - Immature Granulocytes (promyelocytes, myelocytes andmetamyelocytes) > 1% indicates that a LEFT SHIFT is Present. Performed By: #### L 100.0100, L500.2500 ####[facility] [address] [place], [address] Lymphocytes/100 WBC (Bld) 5.1 % Low 19-41 [facility] Comment on above: Performed By: #### L 100.0100, L500.2500 ####[facility] [address] [place], [address] MCH (RBC) [Entitic mass] 29.8 pg Normal 27.0-32.0 [facility] Comment on above: Performed By: #### L 100.0100, L500.2500 ####[facility] [address] [place], [address] MCHC (RBC) [Mass/Vol] 31.5 g/dL Low 32-36 [facility] Comment on above: Performed By: #### L 100.0100, L500.2500 ####[facility] [address] [place], [address] MCV (RBC) [Entitic vol] 94.7 fL Normal 81-[address] [facility] Comment on above: Performed By: #### L 100.0100, L500.2500 ####[facility] [address] [place], [address] Monocytes/100 WBC (Bld) 4.1 % Normal 0-[address] [facility] Comment on above: Performed By: #### L 100.0100, L500.2500 ####[facility] [address] [place], [address] Neutrophils/100 WBC (Bld) 90.1 % High 47-70 [facility] Comment on above: Performed By: #### L 100.0100, L500.2500 ####[facility] [address] [place], [address] Nucleated RBC (Bld) [#/Vol] 0 10*3/uL Normal 0-5 [facility] Comment on above: Performed By: #### L 100.0100, L500.2500 ####[facility] [address] [place], [address] Platelet mean volume (Bld) [Entitic vol] 10.2 fL Normal 6.2-12.0 [facility] Comment on above: Performed By: #### L 100.0100, L500.2500 ####[facility] [address] [place], [address] Platelets (Bld) [#/Vol] 146 10*3/uL Low 150-450 [facility] Comment on above: Performed By: #### L 100.0100, L500.2500 ####[facility] [address] [place], [address] RBC (Bld) [#/Vol] 3.93 10*6/uL Low 4.2-5.4 [facility] Comment on above: Performed By: #### L 100.0100, L500.2500 ####[facility] [address] [place], [address] RDW SD 52.0 fl High 35.1-43.9 [facility] Comment on above: Performed By: #### L 100.0100, L500.2500 ####[facility] [address] [place], [address] WBC (Bld) [#/Vol] 11.9 10*3/uL High 4.4-11.0 [facility] Comment on above: Performed By: #### L 100.0100, L500.2500 ####[facility] [address] [place], [address] Basic Metabolic Profile (BMP )on 03-21-2025 BUN/CRE 30.4 RATIO High 10-20 [facility] Comment on above: Performed By: #### L 500.2500, L100.0100 ####[facility] [address] [place], [address] Calcium [Mass/Vol] 8.5 mg/dL Normal 7.6-11.0 [facility] Comment on above: Performed By: #### L 500.2500, L100.0100 ####[facility] [address] [place], [address] Chloride [Moles/Vol] 100 mmol/L Normal 98-108 [facility] Comment on above: Performed By: #### L 500.2500, L100.0100 ####[facility] [address] [place], [address] CO2 [Moles/Vol] 30.8 mmol/L Normal 21.0-32.0 [facility] Comment on above: Performed By: #### L 500.2500, L100.0100 ####[facility] [address] [place], [address] Creatinine [Mass/Vol] 1.35 mg/dL High 0.70-1.20 [facility] Comment on above: Performed By: #### L 500.2500, L100.0100 ####[facility] [address] [place], [address] ECRCL 46.43 ml/min Low 50-250 [facility] Comment on above: Performed By: #### L 500.2500, L100.0100 ####[facility] [address] [place], [address] GAP 10 Normal 5-15 [facility] Comment on above: Performed By: #### L 500.2500, L100.0100 ####[facility] [address] [place], [address] GFR/1.73 sq M.predicted among non-blacks MDRD (S/P/Bld) [Vol rate/Area] 41 mL/min/{1.73_m2} Low >60 [facility] Comment on above: Result Comment: mL/m in/1.73m2 CKD-EPI Creatinine Equation (2020) Performed By: #### L 500.2500, L100.0100 ####[facility] [address] [place], [address] Glucose [Mass/Vol] 117 mg/dL High 70-99 [facility] Comment on above: Performed By: #### L 500.2500, L100.0100 ####[facility] [address] [place], [address] Potassium [Moles/Vol] 3.5 mmol/L Normal 3.3-5.1 [facility] Comment on above: Performed By: #### L 500.2500, L100.0100 ####[facility] [address] [place], [address] Sodium [Moles/Vol] 141 mmol/L Normal 133-145 [facility] Comment on above: Performed By: #### L 500.2500, L100.0100 ####[facility] [address] [place], [address] Urea nitrogen [Mass/Vol] 41 mg/dL High 4-19 [facility] Comment on above: Performed By: #### L 500.2500, L100.0100 ####[facility] [address] [place], [address] CBC W/Diff, Automatedon 09- Absolute Lymph 0.54 X10 3/uL Low 0.83-4.51 [facility] Comment on above: Performed By: #### L 500.2500, L100.0100 ####[facility] [address] [place], [address] Absolute Neut 14.3 X10 3/uL High 2.0-7.7 [facility] Comment on above: Performed By: #### L 500.2500, L100.0100 ####[facility] [address] [place], [address] Basophils/100 WBC (Bld) 0.3 % Normal 0-1 [facility] Comment on above: Performed By: #### L 500.2500, L100.0100 ####[facility] [address] [place], [address] Eosinophils/100 WBC (Bld) 0.1 % Normal 0-5 [facility] Comment on above: Performed By: #### L 500.2500, L100.0100 ####[facility] [address] [place], [address] Erythrocyte distribution width (RBC) [Ratio] 15.2 % High 11.6-14.6 [facility] Comment on above: Performed By: #### L 500.2500, L100.0100 ####[facility] [address] [place], [address] Hematocrit (Bld) [Volume fraction] 39.0 % Normal 37-47 [facility] Comment on above: Performed By: #### L 500.2500, L100.0100 ####[facility] [address] [place], [address] Hemoglobin (Bld) [Mass/Vol] 12.5 g/dL Normal 12.0-15.0 [facility] Comment on above: Performed By: #### L 500.2500, L100.0100 ####[facility] [address] [place], [address] IG% 0.800 Normal 0.0-0.9 [facility] Comment on above: Result Comment: IG% - Immature Granulocytes (promyelocytes, myelocytes andmetamyelocytes) > 1% indicates that a LEFT SHIFT is Present. Performed By: #### L 500.2500, L100.0100 ####[facility] [address] [place], [address] Lymphocytes/100 WBC (Bld) 3.4 % Low 19-41 [facility] Comment on above: Performed By: #### L 500.2500, L100.0100 ####[facility] [address] [place], [address] MCH (RBC) [Entitic mass] 29.6 pg Normal 27.0-32.0 [facility] Comment on above: Performed By: #### L 500.2500, L100.0100 ####[facility] [address] [place], [address] MCHC (RBC) [Mass/Vol] 32.1 g/dL Normal 32-36 [facility] Comment on above: Performed By: #### L 500.2500, L100.0100 ####[facility] [address] [place], [address] MCV (RBC) [Entitic vol] 92.2 fL Normal 81-[address] [facility] Comment on above: Performed By: #### L 500.2500, L100.0100 ####[facility] [address] [place], [address] Monocytes/100 WBC (Bld) 4.6 % Normal 0-[address] [facility] Comment on above: Performed By: #### L 500.2500, L100.0100 ####[facility] [address] [place], [address] Neutrophils/100 WBC (Bld) 90.8 % High 47-70 [facility] Comment on above: Performed By: #### L 500.2500, L100.0100 ####[facility] [address] [place], [address] Nucleated RBC (Bld) [#/Vol] 0 10*3/uL Normal 0-5 [facility] Comment on above: Performed By: #### L 500.2500, L100.0100 ####[facility] [address] [place], [address] Platelet mean volume (Bld) [Entitic vol] 10.1 fL Normal 6.2-12.0 [facility] Comment on above: Performed By: #### L 500.2500, L100.0100 ####[facility] [address] [place], [address] Platelets (Bld) [#/Vol] 171 10*3/uL Normal 150-450 [facility] Comment on above: Performed By: #### L 500.2500, L100.0100 ####[facility] [address] [place], [address] RBC (Bld) [#/Vol] 4.23 10*6/uL Normal 4.2-5.4 [facility] Comment on above: Performed By: #### L 500.2500, L100.0100 ####[facility] [address] [place], [address] RDW SD 50.4 fl High 35.1-43.9 [facility] Comment on above: Performed By: #### L 500.2500, L100.0100 ####[facility] [address] [place], [address] WBC (Bld) [#/Vol] 15.7 10*3/uL High 4.4-11.0 [facility] Comment on above: Performed By: #### L 500.2500, L100.0100 ####[facility] [address] [place], [address] Basic Metabolic Profile (BMP )on 03-20-2025 BUN/CRE 26.4 RATIO High 10-20 [facility] Comment on above: Performed By: #### L 100.0100, L500.2500 ####[facility] [address] [place], [address] Calcium [Mass/Vol] 9.0 mg/dL Normal 7.6-11.0 [facility] Comment on above: Performed By: #### L 100.0100, L500.2500 ####[facility] [address] [place], [address] Chloride [Moles/Vol] 95 mmol/L Low 98-108 [facility] Comment on above: Performed By: #### L 100.0100, L500.2500 ####[facility] [address] [place], [address] CO2 [Moles/Vol] 31.0 mmol/L Normal 21.0-32.0 [facility] Comment on above: Performed By: #### L 100.0100, L500.2500 ####[facility] [address] [place], [address] Creatinine [Mass/Vol] 1.44 mg/dL High 0.70-1.20 [facility] Comment on above: Performed By: #### L 100.0100, L500.2500 ####[facility] [address] [place], [address] ECRCL 43.32 ml/min Low 50-250 [facility] Comment on above: Performed By: #### L 100.0100, L500.2500 ####[facility] [address] [place], [address] GAP 13 Normal 5-15 [facility] Comment on above: Performed By: #### L 100.0100, L500.2500 ####[facility] [address] [place], [address] GFR/1.73 sq M.predicted among non-blacks MDRD (S/P/Bld) [Vol rate/Area] 38 mL/min/{1.73_m2} Low >60 [facility] Comment on above: Result Comment: mL/m in/1.73m2 CKD-EPI Creatinine Equation (2020) Performed By: #### L 100.0100, L500.2500 ####[facility] [address] [place], [address] Glucose [Mass/Vol] 129 mg/dL High 70-99 [facility] Comment on above: Performed By: #### L 100.0100, L500.2500 ####[facility] [address] [place], [address] Potassium [Moles/Vol] 3.6 mmol/L Normal 3.3-5.1 [facility] Comment on above: Performed By: #### L 100.0100, L500.2500 ####[facility] [address] [place], [address] Sodium [Moles/Vol] 139 mmol/L Normal 133-145 [facility] Comment on above: Performed By: #### L 100.0100, L500.2500 ####[facility] [address] [place], [address] Urea nitrogen [Mass/Vol] 38 mg/dL High 4-19 [facility] Comment on above: Performed By: #### L 100.0100, L500.2500 ####[facility] [address] [place], [address] CBC W/Diff, Automatedon 09- Absolute Lymph 0.55 X10 3/uL Low 0.83-4.51 [facility] Comment on above: Performed By: #### L 100.0100, L500.2500 ####[facility] [address] [place], [address] Absolute Neut 12.1 X10 3/uL High 2.0-7.7 [facility] Comment on above: Performed By: #### L 100.0100, L500.2500 ####[facility] [address] [place], [address] Basophils/100 WBC (Bld) 0.2 % Normal 0-1 [facility] Comment on above: Performed By: #### L 100.0100, L500.2500 ####[facility] [address] [place], [address] Eosinophils/100 WBC (Bld) 0.0 % Normal 0-5 [facility] Comment on above: Performed By: #### L 100.0100, L500.2500 ####[facility] [address] [place], [address] Erythrocyte distribution width (RBC) [Ratio] 14.9 % High 11.6-14.6 [facility] Comment on above: Performed By: #### L 100.0100, L500.2500 ####[facility] [address] [place], [address] Hematocrit (Bld) [Volume fraction] 44.0 % Normal 37-47 [facility] Comment on above: Performed By: #### L 100.0100, L500.2500 ####[facility] [address] [place], [address] Hemoglobin (Bld) [Mass/Vol] 14.9 g/dL Normal 12.0-15.0 [facility] Comment on above: Performed By: #### L 100.0100, L500.2500 ####[facility] [address] [place], [address] IG% 0.700 Normal 0.0-0.9 [facility] Comment on above: Result Comment: IG% - Immature Granulocytes (promyelocytes, myelocytes andmetamyelocytes) > 1% indicates that a LEFT SHIFT is Present. Performed By: #### L 100.0100, L500.2500 ####[facility] [address] [place], [address] Lymphocytes/100 WBC (Bld) 4.1 % Low 19-41 [facility] Comment on above: Performed By: #### L 100.0100, L500.2500 ####[facility] [address] [place], [address] MCH (RBC) [Entitic mass] 29.6 pg Normal 27.0-32.0 [facility] Comment on above: Performed By: #### L 100.0100, L500.2500 ####[facility] [address] [place], [address] MCHC (RBC) [Mass/Vol] 33.9 g/dL Normal 32-36 [facility] Comment on above: Performed By: #### L 100.0100, L500.2500 ####[facility] [address] [place], [address] MCV (RBC) [Entitic vol] 87.5 fL Normal 81-[address] [facility] Comment on above: Performed By: #### L 100.0100, L500.2500 ####[facility] [address] [place], [address] Monocytes/100 WBC (Bld) 4.1 % Normal 0-[address] [facility] Comment on above: Performed By: #### L 100.0100, L500.2500 ####[facility] [address] [place], [address] Neutrophils/100 WBC (Bld) 90.9 % High 47-70 [facility] Comment on above: Performed By: #### L 100.0100, L500.2500 ####[facility] [address] [place], [address] Nucleated RBC (Bld) [#/Vol] 0 10*3/uL Normal 0-5 [facility] Comment on above: Performed By: #### L 100.0100, L500.2500 ####[facility] [address] [place], [address] Platelet mean volume (Bld) [Entitic vol] 10.3 fL Normal 6.2-12.0 [facility] Comment on above: Performed By: #### L 100.0100, L500.2500 ####[facility] [address] [place], [address] Platelets (Bld) [#/Vol] 221 10*3/uL Normal 150-450 [facility] Comment on above: Performed By: #### L 100.0100, L500.2500 ####[facility] [address] [place], [address] RBC (Bld) [#/Vol] 5.03 10*6/uL Normal 4.2-5.4 [facility] Comment on above: Performed By: #### L 100.0100, L500.2500 ####[facility] [address] [place], [address] RDW SD 46.7 fl High 35.1-43.9 [facility] Comment on above: Performed By: #### L 100.0100, L500.2500 ####[facility] [address] [place], [address] WBC (Bld) [#/Vol] 13.3 10*3/uL High 4.4-11.0 [facility] Comment on above: Performed By: #### L 100.0100, L500.2500 ####[facility] [address] [place], [address] Consultation - Cardiologyon 03-20-2025 Consultation - Cardiology Normal [facility] Consultation - Infectious Dx on 03-20-2025 Consultation - Infectious Dx Normal [facility] Extremity Upper without Cont raon 03-20-2025 Extremity Upper without Contra Normal [facility] Respiratory Cultureon 2024 RESPC Mixed normal respira tory talya. No Streptococcus pneumoniae, beta-hemolytic Streptococcus or Staphylococcus aureus isolated. Normal [facility] Comment on above: Performed By: #### M 100.2400, M100.2000 ####[facility] [address] [place], [address] Trough vancomycin levelOrder ed By: Emili Lee on 03-20-2025 Vancomycin trough [Mass/Vol] 15.6 ug/mL High 5.0-15.0 [facility] Vancomycin, Trough Levelon 0 03-20-2025 VANCO, TROUGH 15.6 ug/mL High 5.0-15.0 [facility] Comment on above: Order Comment: 2129 Result [...] therapy recommended for serious lifethreatening infections include:- Sunkfylfme-Vpezpsaeonpt-Qafspyfef (Ventilator/Healt[employer] Associated)-SepsisPLEASE CONTACT PHARMACY SERVICES (#9699) FOR INTERPRETATIONOF RESULTS. Performed By: #### L 501.8820 ####[facility] [address] [place], [address] Absolute lymphocyte countOrd ered By: Emili Lee on 03-19-2025 Lymphocytes Auto (Unsp spec) [#/Vol] 1.78 10*3/uL 0.83-4.51 [facility] Absolute neutrophil countOrd ered By: Emili Lee on 03-19-2025 Neutrophils (Bld) [#/Vol] 12.4 10*3/uL High 2.0-7.7 [facility] Anion gap in Serum or Plasma Ordered By: Emili Lee on 03-19-2025 Anion gap [Moles/Vol] 16 mmol/L High 5- [facility] BUN/creatinine ratioOrdered By: Emili Lee on 03-19-2025 Urea nitrogen/Creatinine [Mass ratio] 26.2 mg/mg High 10- [facility] Basophil percentageOrdered B y: Emili Lee on 03-19-2025 Basophils/100 WBC (Bld) 0.3 % Normal 0-1 [facility] Comment on above: Order Comment: RESUL T(S) PREVIOUSLY REPORTED ON MANUAL REQUISITION DURINGDOWNTIME. Performed By: #### L 100.0100, L500.4050 ####[facility] [address] [place], [address] Bilirubin, totalOrdered By: Emili Lee on 03-19-2025 Bilirubin [Mass/Vol] 0.56 mg/dL 0.00-1.30 [facility] Blood Gases by CPSon 025 Base excess Calc (Bld) [Moles/Vol] 10 mmol/L High -2 to +2 [facility] Comment on above: Performed By: #### L 9000.0800 ####[facility] [address] [place], [address] Blood Gas Type ART Normal [facility] Comment on above: Performed By: #### L 9000.0800 ####[facility] [address], [address] CO2 [Moles/Vol] 36 mmol/L Normal [facility] Comment on above: Performed By: #### L 9000.0800 ####[facility] [address] [place], [address] FI02 35.0 Normal [facility] Comment on above: Performed By: #### L 9000.0800 ####[facility] [address], [address] HCO3 (Bld) [Moles/Vol] 34.3 mmol/L High 22-26 [facility] Comment on above: Performed By: #### L 9000.0800 ####[facility] [address] [place], [address] Mode AC Normal [facility] Comment on above: Performed By: #### L 9000.0800 ####[facility] [address] [place], [address] O2 Delivery Dev Adult Vent Normal [facility] Comment on above: Performed By: #### L 9000.0800 ####[facility] [address] [place], [address] pCO2 48.5 mmHg High 35-45 [facility] Comment on above: Performed By: #### L 9000.0800 ####[facility] [address] [place], [address] PEEP 5 Normal [facility] Comment on above: Performed By: #### L 9000.0800 ####[facility] [address] [place], [address] pH (Bld) 7.46 [pH] High 7.35-7.45 [facility] Comment on above: Performed By: #### L 9000.0800 ####[facility] [address] [place], [address] PO2 63 mmHG Low 75-100 [facility] Comment on above: Performed By: #### L 9000.0800 ####[facility] [address] [place], [address] RR 14 Normal [facility] Comment on above: Performed By: #### L 9000.0800 ####[facility] [address] [place], [address] SITE Art Line Normal [facility] Comment on above: Performed By: #### L 9000.0800 ####[facility] [address] [place], [address] SO2 93 Low 95-99 [facility] Comment on above: Performed By: #### L 9000.0800 ####[facility] [address] [place], [address] Vt 400.0 mL Normal [facility] Comment on above: Performed By: #### L 9000.0800 ####[facility] [address] [place], [address] Blood base excess determinat ionOrdered By: Otilia Hernandez on 03-19-2025 Base excess Calc (BldV) [Moles/Vol] 10 mmol/L High -2-2 [facility] Blood bicarbonate measuremen tOrdered By: Otilia Hernandez on 03-19-2025 HCO3 (Bld) [Moles/Vol] 34.3 mmol/L High 22-26 [facility] Blood platelets count (numbe r/volume)Ordered By: Emili Lee on 03-19-2025 Platelets (Bld) [#/Vol] 244 10*3/uL Normal 150-450 [facility] Comment on above: Order Comment: RESUL T(S) PREVIOUSLY REPORTED ON MANUAL REQUISITION DURINGDOWNTIME. Performed By: #### L 100.0100, L500.4050 ####[facility] [address] [place], [address] CBC W/Diff, Automatedon 03-03 Absolute Lymph 1.78 X10 3/uL Normal 0.83-4.51 [facility] Comment on above: Order Comment: RESUL T(S) PREVIOUSLY REPORTED ON MANUAL REQUISITION DURINGDOWNTIME. Performed By: #### L 100.0100, L500.4050 ####[facility] [address] [place], [address] Absolute Neut 12.4 X10 3/uL High 2.0-7.7 [facility] Comment on above: Order Comment: RESUL T(S) PREVIOUSLY REPORTED ON MANUAL REQUISITION DURINGDOWNTIME. Performed By: #### L 100.0100, L500.4050 ####[facility] [address] [place], [address] IG% 0.500 Normal 0.0-0.9 [facility] Comment on above: Order Comment: RESUL T(S) PREVIOUSLY REPORTED ON MANUAL REQUISITION DURINGDOWNTIME. Result Comment: IG% - Immature Granulocytes (promyelocytes, myelocytes andmetamyelocytes) > 1% indicates that a LEFT SHIFT is Present. Performed By: #### L 100.0100, L500.4050 ####[facility] [address] [place], [address] RDW SD 45.3 fl High 35.1-43.9 [facility] Comment on above: Order Comment: RESUL T(S) PREVIOUSLY REPORTED ON MANUAL REQUISITION DURINGDOWNTIME. Performed By: #### L 100.0100, L500.4050 ####[facility] [address] [place], [address] Hematocrit (Bld) [Volume fraction] 46.5 % Normal 37-47 [facility] Comment on above: Order Comment: RESUL T(S) PREVIOUSLY REPORTED ON MANUAL REQUISITION DURINGDOWNTIME. Performed By: #### L 100.0100, L500.4050 ####[facility] [address] [place], [address] Hemoglobin (Bld) [Mass/Vol] 15.7 g/dL High 12.0-15.0 [facility] Comment on above: Order Comment: RESUL T(S) PREVIOUSLY REPORTED ON MANUAL REQUISITION DURINGDOWNTIME. Performed By: #### L 100.0100, L500.4050 ####[facility] [address] [place], [address] RBC (Bld) [#/Vol] 5.28 10*6/uL Normal 4.2-5.4 [facility] Comment on above: Order Comment: RESUL T(S) PREVIOUSLY REPORTED ON MANUAL REQUISITION DURINGDOWNTIME. Performed By: #### L 100.0100, L500.4050 ####[facility] [address] [place], [address] WBC (Bld) [#/Vol] 14.9 10*3/uL High 4.4-11.0 [facility] Comment on above: Order Comment: RESUL T(S) PREVIOUSLY REPORTED ON MANUAL REQUISITION DURINGDOWNTIME. Performed By: #### L 100.0100, L500.4050 ####[facility] [address] [place], [address] CPK Total, Creatine Kinaseon 03-19-2025 CPK TOTAL 137 U/L Normal 24-195 [facility] Comment on above: Order Comment: Comme nts: DC when propofol is d/c'd Performed By: #### L 501.3620, L501.5000 ####[facility] [address] [place], [address] Carbon dioxide, total [Moles /volume] in Central venous bloodOrdered By: Emili Lee on 03-19-2025 CO2 [Moles/Vol] 30.8 mmol/L 21.0-32.0 [facility] Chloride assayOrdered By: Anna Lee on 03-19-2025 Chloride [Moles/Vol] 88 mmol/L Low 98-108 [facility] Comprehensive Metabolic Prof ilon 03-19-2025 Albumin [Mass/Vol] 3.6 g/dL Normal 3.4-4.8 [facility] Comment on above: Performed By: #### L 100.0100, L500.4050 ####[facility] [address] [place], [address] Albumin/Globulin [Mass ratio] 1.2 {ratio} Normal 0.9-2.4 [facility] Comment on above: Performed By: #### L 100.0100, L500.4050 ####[facility] [address] [place], [address] ALK PHOS 149 U/L High 35-104 [facility] Comment on above: Performed By: #### L 100.0100, L500.4050 ####[facility] [address] [place], [address] ALT [Catalytic activity/Vol] 64 U/L High <=34 [facility] Comment on above: Performed By: #### L 100.0100, L500.4050 ####[facility] [address] [place], [address] AST [Catalytic activity/Vol] 94 U/L High <=31 [facility] Comment on above: Performed By: #### L 100.0100, L500.4050 ####[facility] [address] [place], [address] Bilirubin [Mass/Vol] 0.56 mg/dL Normal 0.00-1.30 [facility] Comment on above: Performed By: #### L 100.0100, L500.4050 ####[facility] [address] [place], [address] BUN/CRE 26.2 RATIO High 10-20 [facility] Comment on above: Performed By: #### L 100.0100, L500.4050 ####[facility] [address] [place], [address] Calcium [Mass/Vol] 8.7 mg/dL Normal 7.6-11.0 [facility] Comment on above: Performed By: #### L 100.0100, L500.4050 ####[facility] [address] [place], [address] Chloride [Moles/Vol] 88 mmol/L Low 98-108 [facility] Comment on above: Performed By: #### L 100.0100, L500.4050 ####[facility] [address] [place], [address] CO2 [Moles/Vol] 30.8 mmol/L Normal 21.0-32.0 [facility] Comment on above: Performed By: #### L 100.0100, L500.4050 ####[facility] [address] [place], [address] Creatinine [Mass/Vol] 2.06 mg/dL High 0.70-1.20 [facility] Comment on above: Performed By: #### L 100.0100, L500.4050 ####[facility] [address] [place], [address] ECRCL 29.42 ml/min Low 50-250 [facility] Comment on above: Performed By: #### L 100.0100, L500.4050 ####[facility] [address] [place], [address] GAP 16 High 5-15 [facility] Comment on above: Performed By: #### L 100.0100, L500.4050 ####[facility] [address] [place], [address] GFR/1.73 sq M.predicted among non-blacks MDRD (S/P/Bld) [Vol rate/Area] 25 mL/min/{1.73_m2} Low >60 [facility] Comment on above: Result Comment: mL/m in/1.73m2 CKD-EPI Creatinine Equation (2020) Performed By: #### L 100.0100, L500.4050 ####[facility] [address] [place], [address] Globulin (S) [Mass/Vol] 3.0 g/dL Normal 2.2-4.[address] [facility] Comment on above: Performed By: #### L 100.0100, L500.4050 ####[facility] [address] [place], [address] Glucose [Mass/Vol] 88 mg/dL Normal 70-99 [facility] Comment on above: Performed By: #### L 100.0100, L500.4050 ####[facility] [address] [place], [address] Potassium [Moles/Vol] 3.5 mmol/L Normal 3.3-5.1 [facility] Comment on above: Performed By: #### L 100.0100, L500.4050 ####[facility] [address] [place], [address] Sodium [Moles/Vol] 134 mmol/L Normal 133-145 [facility] Comment on above: Performed By: #### L 100.0100, L500.4050 ####[facility] [address] [place], [address] T PROT 6.6 g/dL Normal 5.9-8.4 [facility] Comment on above: Performed By: #### L 100.0100, L500.4050 ####[facility] [address] [place], [address] Urea nitrogen [Mass/Vol] 54 mg/dL High 4-19 [facility] Comment on above: Performed By: #### L 100.0100, L500.4050 ####[facility] [address] [place], [address] Consultation - Intensiviston 03-19-2025 Consultation - Repair Armature Winder Helper Normal [facility] Creatinine, Urine (random)on 03-19-2025 UR CREAT 83.80 mg/dL Normal 28.00-217.0 0 [facility] Comment on above: Order Comment: 00:58 03-19-25 Performed By: #### L 500.9400, L501.7400, L501.1200, L502.0715 ####[facility] [address] [place], [address] Echo Limited w/Contraston Echo Limited w/Contrast Normal [facility] Electrocardiogram reportOrde red By: Saul Kearney on 03-19-2025 EKG study [facility] Work Phone: Eosinophil %Ordered By: Stephen Lee on 03-19-2025 Eosinophils/100 WBC (Bld) 0.1 % Normal 0-5 [facility] Comment on above: Order Comment: RESUL T(S) PREVIOUSLY REPORTED ON MANUAL REQUISITION DURINGDOWNTIME. Performed By: #### L 100.0100, L500.4050 ####[facility] [address] [place], [place], [address] Erythrocyte distribution wid th ratioOrdered By: Emili Lee on 03-19-2025 Erythrocyte distribution width (RBC) [Ratio] 14.4 % Normal 11.6-14.6 [facility] Comment on above: Order Comment: RESUL T(S) PREVIOUSLY REPORTED ON MANUAL REQUISITION DURINGDOWNTIME. Performed By: #### L 100.0100, L500.4050 ####[facility] [address] [place], [place], [id number] Gastric contents occult bloo d detectionOrdered By: Antwan Gardner on 03-19-2025 Hemoglobin.gastrointest inal Ql (Cecily fld) Positive Abnormal [facility] Hemoglobin.gastrointest inal Ql (Cecily fld) Positive Abnormal [facility] Gastric, Occult Bloodon 03-03 GASTOC Normal Reference Ran ge = Negative Gastrocult- Occult Blood A * POSITIVE * A Gastroccult pH 2 OCCULT BLOOD POSITIVE Normal [facility] Comment on above: Performed By: #### M 100.0898 ####[facility] [address] [place], [place], [address] Glomerular filtration rate ( GFR) estimation/1.73 sq m using serum, plasma, or whole bOrdered By: Emili Lee on 03-19-2025 GFR/1.73 sq M.predicted among non-blacks MDRD (S/P/Bld) [Vol rate/Area] 25 mL/min/{1.73_m2} Low >60 [facility] Comment on above: mL/min/1.73m2 CKD-EP I Creatinine Equation (2020) Hematocrit Auto (Bld) [Volum e fraction]Ordered By: Emili Lee on 03-19-2025 Hematocrit (Bld) [Volume fraction] 46.5 % 37-47 [facility] Hemoglobin measurementOrdere d By: Emili Lee on 03-19-2025 Hemoglobin (Bld) [Mass/Vol] 15.7 g/dL High 12.0-15.0 [facility] Immature granulocyte percent ageOrdered By: Emili Lee on 03-19-2025 Immature granulocytes/100 WBC (Bld) 0.500 % 0.0-0.9 [facility] Comment on above: IG% - Immature Granu locytes (promyelocytes, myelocytes and metamyelocytes) > 1% indicates that a LEFT SHIFT is Present. Laboratory - Chemistry and C hemistry - challengeOrdered By: Emili Lee on 03-19-2025 AST [Catalytic activity/Vol] 94 U/L High <32 [facility] Lactic Acidon 03-19-2025 Lactate [Moles/Vol] 1.3 mmol/L Normal 0.0-2.0 [facility] Comment on above: Order Comment: Y Performed By: #### L 503.6005 ####[facility] [address] [place], [place], [address] Limited echocardiogram repor tOrdered By: Saul Kearney on 03-19-2025 Study report [facility] Work Phone: Lymphocyte %Ordered By: Stephen Lee on 03-19-2025 Lymphocytes/100 WBC (Bld) 11.9 % Low 19-41 [facility] Comment on above: Order Comment: RESUL T(S) PREVIOUSLY REPORTED ON MANUAL REQUISITION DURINGDOWNTIME. Performed By: #### L 100.0100, L500.4050 ####[facility] [address] [place], [place], [id number] MCV (mean corpuscular volume ) determinationOrdered By: Emili Lee on 03-19-2025 MCV (RBC) [Entitic vol] 88.1 fL Normal 81-99 [facility] Comment on above: Delta: 93.5 on 03/18-1514 Order Comment: RESUL T(S) PREVIOUSLY REPORTED ON MANUAL REQUISITION DURINGDOWNTIME. Performed By: #### L 100.0100, L500.4050 ####[facility] [address] [place], [place], [address] Mean corpuscular hemoglobin (MCH) determinationOrdered By: Emili Lee on 03-19-2025 MCH (RBC) [Entitic mass] 29.7 pg Normal 27.0-32.0 [facility] Comment on above: Order Comment: RESUL T(S) PREVIOUSLY REPORTED ON MANUAL REQUISITION DURINGDOWNTIME. Performed By: #### L 100.0100, L500.4050 ####[facility] [address] [place], [place], [address] Mean corpuscular hemoglobin concentration (MCHC) determinationOrdered By: Emili Lee on 03-19-2025 MCHC (RBC) [Mass/Vol] 33.8 g/dL Normal 32-36 [facility] Comment on above: Delta: 31.3 on 03/18-1514 Order Comment: RESUL T(S) PREVIOUSLY REPORTED ON MANUAL REQUISITION DURINGDOWNTIME. Performed By: #### L 100.0100, L500.4050 ####[facility] [address] [place], [place], [address] Mean platelet volume determi nationOrdered By: Emili Lee on 03-19-2025 Platelet mean volume (Bld) [Entitic vol] 10.3 fL Normal 6.2-12.0 [facility] Comment on above: Order Comment: RESUL T(S) PREVIOUSLY REPORTED ON MANUAL REQUISITION DURINGDOWNTIME. Performed By: #### L 100.0100, L500.4050 ####[facility] [address] [facility] [place], [place], [address] Measurement, pHOrdered By: Katja Hernandez on 03-19-2025 pH (Unsp spec) 7.46 [pH] High 7.35-7.45 [facility] Monocyte percentageOrdered B y: Emili Lee on 03-19-2025 Monocytes/100 WBC (Bld) 4.2 % Normal 0-10 [facility] Comment on above: Order Comment: RESUL T(S) PREVIOUSLY REPORTED ON MANUAL REQUISITION DURINGDOWNTIME. Performed By: #### L 100.0100, L500.4050 ####[facility] [address] [place], [address] Neutrophil %Ordered By: Stephen Lee on 03-19-2025 Neutrophils/100 WBC (Bld) 83.0 % High 47-70 [facility] Comment on above: Order Comment: RESUL T(S) PREVIOUSLY REPORTED ON MANUAL REQUISITION DURINGDOWNTIME. Performed By: #### L 100.0100, L500.4050 ####[facility] [address], [address] No Panel InformationOrdered By: Otilia Hernandez on 03-19-2025 ART [facility] Art Line [facility] AC [facility] Adult Vent [facility] 400.0 mL [facility] 14 [facility] 5 [facility] No Panel InformationOrdered By: Emili Lee on 03-19-2025 94 U/L High <32 [facility] Osmolality, Urineon 03-19-20 25 OSMOLALITY,UR 437 mOsm/KG Normal [facility] Comment on above: Order Comment: 00:58 03-19-25 Result Comment: Norm al Urine Reference Ranges Random: 50 - 1200 mOsm/kg H20 depending on fluid intake Random: >850 mOsm/kg after 12 hour fluid restriction 24 hour: 300 - 900 mOsm/kg H2O Performed By: #### L 500.9400, L501.7400, L501.1200, L502.0715 ####[facility] [address], [address] Potassium measurement (mass/ volume)Ordered By: Emili Lee on 03-19-2025 Potassium (Unsp spec) [Mass/Vol] 3.5 mmol/L 3.3-5.1 [facility] RBC Auto (Bld) [#/Vol]Ordere d By: Emili Lee on 03-19-2025 RBC (Bld) [#/Vol] 5.28 10*6/uL 4.2-5.4 [facility] RDWOrdered By: Emili Lee on 03-19-2025 RDW 45.3 fl High 35.1-43.9 [facility] RESPIRATORY PANEL MOLECULARo n 03-19-2025 RP PANEL Normal [facility] Comment on above: Performed By: #### M 669.689 ####[facility] [address] [place], [place], [id number] Serum creatinine measurement (mass/volume)Ordered By: Emili Lee on 03-19-2025 Creatinine [Mass/Vol] 2.06 mg/dL High 0.70-1.20 [facility] Serum globulin measurementOr dered By: Emili Lee on 03-19-2025 Globulin (S) [Mass/Vol] 3.0 g/dL 2.2-4.2 [facility] Serum glucose measurement (m ass/volume)Ordered By: Emili Lee on 03-19-2025 Glucose [Mass/Vol] 88 mg/dL 70-99 [facility] Serum or plasma alanine gao otransferase (ALT) measurementOrdered By: Emili Lee on 03-19-2025 ALT [Catalytic activity/Vol] 64 U/L High <35 [facility] Serum or plasma albumin lisa urement (mass/volume)Ordered By: Emili Lee on 03-19-2025 Albumin [Mass/Vol] 3.6 g/dL 3.4-4.8 [facility] Serum or plasma albumin/glob ulin mass ratioOrdered By: Emili Lee on 03-19-2025 Albumin/Globulin [Mass ratio] 1.2 {ratio} 0.9-2.4 [facility] Serum or plasma alkaline bee sphatase measurementOrdered By: Emili Lee on 03-19-2025 ALP [Catalytic activity/Vol] 149 U/L High 35-104 [facility] Serum or plasma calcium lisa urement (mass/volume)Ordered By: Emili Lee on 03-19-2025 Calcium [Mass/Vol] 8.7 mg/dL 7.6-11.0 [facility] Serum or plasma urea nitroge n measurement (mass/volume)Ordered By: Emili Lee on 03-19-2025 Urea nitrogen [Mass/Vol] 54 mg/dL High 4-19 [facility] Shoulder min 2 Viewson 03-19 Shoulder min 2 Views Normal [facility] Sodium levelOrdered By: Stephen Lee on 03-19-2025 Sodium [Moles/Vol] 134 mmol/L 133-145 [facility] Total carbon dioxide measure mentOrdered By: Otilia Hernandez on 03-19-2025 CO2 [Moles/Vol] 36 mmol/L [facility] Total proteinOrdered By: Ketan Lee on 03-19-2025 Protein [Mass/Vol] 6.6 g/dL 5.9-8.4 [facility] Triglycerideson 03-19-2025 Triglyceride [Mass/Vol] 90 mg/dL Normal [facility] Comment on above: Order Comment: Comme nts: DC when propofol is d/c'dDC when propofol is d/c'd Result Comment: The drugs N-Acetylcysteine and Metamizole may falselydepress this assay.Normal range: <150 mg/dLBorderline High: 150-199 mg/dLHigh: 200-499 mg/dLVery High: >500 mg/dL Performed By: #### L 501.3620, L501.5000 ####[facility] [address] [place], [address] Urea Nitrogen, Urineon 03-19 URINE UREA 390 mg/dL Normal NO RANGE EST. [facility] Comment on above: Order Comment: 00:58 03-19-25 Performed By: #### L 500.9400, L501.7400, L501.1200, L502.0715 ####[facility] [address] [place], [address] Urine Cultureon 03-19-2025 URC Culture exhibits no growth. Normal [facility] Comment on above: Performed By: #### M 100.2200 ####[facility] [address] [place], [address] Urine Electrolytes- Randomon 03-19-2025 Chloride,URINE < 20 Normal Not Establ. [facility] Comment on above: Order Comment: 00:58 03-19-25 Performed By: #### L 500.9400, L501.7400, L501.1200, L502.0715 ####[facility] [address] [place], [address] Sodium (U) [Moles/Vol] 28 mmol/L Normal Not Establ. [facility] Comment on above: Order Comment: 00:58 03-19-25 Performed By: #### L 500.9400, L501.7400, L501.1200, L502.0715 ####[facility] [address] [place], [address] UR K 31.9 mmol/L Normal Not Establ. [facility] Comment on above: Order Comment: 00:58 03-19-25 Performed By: #### L 500.9400, L501.7400, L501.1200, L502.0715 ####[facility] [address] [place], [address] White blood cell (WBC) count Ordered By: Emili Lee on 03-19-2025 WBC (Bld) [#/Vol] 14.9 10*3/uL High 4.4-11.0 [facility] 12 Lead EKGon 03-18-2025 12 Lead EKG Normal [facility] Abdomen Single View (Portabl e)on 03-18-2025 Abdomen Single View (Portable) Normal [facility] Absolute lymphocyte countOrd ered By: Deion Levy on 03-18-2025 Lymphocytes Auto (Unsp spec) [#/Vol] 0.73 10*3/uL Low 0.83-4.51 [facility] Absolute neutrophil countOrd ered By: Deion Levy on 03-18-2025 Neutrophils (Bld) [#/Vol] 8.4 10*3/uL High 2.0-7.7 [facility] Activated partial thrombopla stin time (aPTT) in platelet poor plasma by coagulation aOrdered By: Deion Levy on 03-18-2025 aPTT Coag (PPP) [Time] 27.8 s 24.1-36.2 [facility] Anion gap in Serum or Plasma Ordered By: Deion Levy on 03-18-2025 Anion gap [Moles/Vol] 14 mmol/L 5-15 [facility] Automated lymphocyte count a s percentage of total leukocytesOrdered By: Deion Levy on 03-18-2025 Lymphocytes/100 WBC Auto (Unsp spec) 7.4 % Low 19-41 [facility] BUN/creatinine ratioOrdered By: Deion Levy on 03-18-2025 Urea nitrogen/Creatinine [Mass ratio] 22.8 mg/mg High 10-20 [facility] Basophil percentageOrdered B y: Deion Levy on 03-18-2025 Basophils/100 WBC (Bld) 0.4 % 0-1 [facility] Bilirubin Test strip Ql (U)O rdered By: Deionfreida Levy on 03-18-2025 Bilirubin Ql (U) Negative Negative [facility] Bilirubin, totalOrdered By: Deionfreida Levy on 03-18-2025 Bilirubin [Mass/Vol] 0.35 mg/dL 0.00-1.30 [facility] Blood Gases by CPSon 025 Base excess Calc (Bld) [Moles/Vol] 4 mmol/L High -2 to +2 [facility] Comment on above: Performed By: #### L 9000.0800 ####[facility] [address] [place], [address] Blood Gas Type ART Normal [facility] Comment on above: Performed By: #### L 9000.0800 ####[facility] [address] [place], [address] CO2 [Moles/Vol] 32 mmol/L Normal [facility] Comment on above: Performed By: #### L 9000.0800 ####[facility] [address] [place], [address] FI02 40.0 Normal [facility] Comment on above: Performed By: #### L 9000.0800 ####[facility] [address] [place], [address] HCO3 (Bld) [Moles/Vol] 30.3 mmol/L High 22-26 [facility] Comment on above: Performed By: #### L 9000.0800 ####[facility] [address] [place], [address] Mode AC/VC Normal [facility] Comment on above: Performed By: #### L 9000.0800 ####[facility] [address] [place], [address] O2 Delivery Dev Adult Vent Normal [facility] Comment on above: Performed By: #### L 9000.0800 ####[facility] [address] [place], [address] pCO2 59.2 mmHg High 35-45 [facility] Comment on above: Performed By: #### L 9000.0800 ####[facility] [address] [place], [address] PEEP 5 Normal [facility] Comment on above: Performed By: #### L 9000.0800 ####[facility] [address] [place], [address] pH (Bld) 7.32 [pH] Low 7.35-7.45 [facility] Comment on above: Performed By: #### L 9000.0800 ####[facility] [address] [place], [address] PO2 101 mmHG High 75-100 [facility] Comment on above: Performed By: #### L 9000.0800 ####[facility] [address] [place], [address] RR 14 Normal [facility] Comment on above: Performed By: #### L 9000.0800 ####[facility] [address] [place], [address] SITE L Brach Normal [facility] Comment on above: Performed By: #### L 9000.0800 ####[facility] [address] [place], [address] SO2 97 Normal 95-99 [facility] Comment on above: Performed By: #### L 9000.0800 ####[facility] [address] [place], [address] Vt 400.0 mL Normal [facility] Comment on above: Performed By: #### L 9000.0800 ####[facility] [address] [place], [address] Blood base excess determinat ionOrdered By: Emili Lee on 03-18-2025 Base excess Calc (BldV) [Moles/Vol] 4 mmol/L High -2-2 [facility] Blood bicarbonate measuremen tOrdered By: Emili Lee on 03-18-2025 HCO3 (Bld) [Moles/Vol] 30.3 mmol/L High 22-26 [facility] Blood cultureOrdered By: Deion Levy on 03-18-2025 Bacteria identified Cx Nom (Bld) No growth in 5 days. [facility] Bacteria identified Cx Nom (Bld) No growth in 5 days. [facility] Brain/Head without Contrasto n 03-18-2025 Brain/Head without Contrast Normal [facility] CBC W/Diff, Automatedon 09- Absolute Lymph 0.73 X10 3/uL Low 0.83-4.51 [facility] Comment on above: Performed By: #### L 501.9520, L500.4050, L100.0100 ####[facility] [address] [place], [address] Absolute Neut 8.4 X10 3/uL High 2.0-7.7 [facility] Comment on above: Performed By: #### L 501.9520, L500.4050, L100.0100 ####[facility] [address] [place], [address] Basophils/100 WBC (Bld) 0.4 % Normal 0-1 [facility] Comment on above: Performed By: #### L 501.9520, L500.4050, L100.0100 ####[facility] [address] [place], [address] Eosinophils/100 WBC (Bld) 0.0 % Normal 0-5 [facility] Comment on above: Performed By: #### L 501.9520, L500.4050, L100.0100 ####[facility] [address] [place], [address] Erythrocyte distribution width (RBC) [Ratio] 14.6 % Normal 11.6-14.6 [facility] Comment on above: Performed By: #### L 501.9520, L500.4050, L100.0100 ####[facility] [address] [place], [address] Hematocrit (Bld) [Volume fraction] 50.5 % High 37-47 [facility] Comment on above: Performed By: #### L 501.9520, L500.4050, L100.0100 ####[facility] [address] [place], [address] Hemoglobin (Bld) [Mass/Vol] 15.8 g/dL High 12.0-15.0 [facility] Comment on above: Performed By: #### L 501.9520, L500.4050, L100.0100 ####[facility] [address] [place], [address] IG% 0.900 Normal 0.0-0.9 [facility] Comment on above: Result Comment: IG% - Immature Granulocytes (promyelocytes, myelocytes andmetamyelocytes) > 1% indicates that a LEFT SHIFT is Present. Performed By: #### L 501.9520, L500.4050, L100.0100 ####[facility] [address] [place], [address] Lymphocytes/100 WBC (Bld) 7.4 % Low 19-41 [facility] Comment on above: Performed By: #### L 501.9520, L500.4050, L100.0100 ####[facility] [address] [place], [address] MCH (RBC) [Entitic mass] 29.3 pg Normal 27.0-32.0 [facility] Comment on above: Performed By: #### L 501.9520, L500.4050, L100.0100 ####[facility] [address] [place], [address] MCHC (RBC) [Mass/Vol] 31.3 g/dL Low 32-36 [facility] Comment on above: Performed By: #### L 501.9520, L500.4050, L100.0100 ####[facility] [address] [place], [address] MCV (RBC) [Entitic vol] 93.5 fL Normal 81-[address] [facility] Comment on above: Performed By: #### L 501.9520, L500.4050, L100.0100 ####[facility] [address] [place], [address] Monocytes/100 WBC (Bld) 7.0 % Normal 0-[address] [facility] Comment on above: Performed By: #### L 501.9520, L500.4050, L100.0100 ####[facility] [address] [place], [address] Neutrophils/100 WBC (Bld) 84.3 % High 47-70 [facility] Comment on above: Performed By: #### L 501.9520, L500.4050, L100.0100 ####[facility] [address] [place], [address] Nucleated RBC (Bld) [#/Vol] 0 10*3/uL Normal 0-5 [facility] Comment on above: Performed By: #### L 501.9520, L500.4050, L100.0100 ####[facility] [address] [place], [address] Platelet mean volume (Bld) [Entitic vol] 10.4 fL Normal 6.2-12.0 [facility] Comment on above: Performed By: #### L 501.9520, L500.4050, L100.0100 ####[facility] [address] [place], [address] Platelets (Bld) [#/Vol] 218 10*3/uL Normal 150-450 [facility] Comment on above: Performed By: #### L 501.9520, L500.4050, L100.0100 ####[facility] [address] [place], [address] RBC (Bld) [#/Vol] 5.40 10*6/uL Normal 4.2-5.4 [facility] Comment on above: Performed By: #### L 501.9520, L500.4050, L100.0100 ####[facility] [address] [place], [address] RDW SD 49.9 fl High 35.1-43.9 [facility] Comment on above: Performed By: #### L 501.9520, L500.4050, L100.0100 ####[facility] [address] [place], [address] WBC (Bld) [#/Vol] 9.9 10*3/uL Normal 4.4-11.0 [facility] Comment on above: Performed By: #### L 501.9520, L500.4050, L100.0100 ####[facility] [address] [place], [address] CRPon 03-18-2025 C-REACTIVE PROT 5.32 mg/L High 0.0-3.0 [facility] Comment on above: Performed By: #### L 101.9900, L509.7001, L501.5610 ####[facility] [address] [place], [address] CTA Abd/Pelvis W/WO Contrast on 03-18-2025 CTA Abd/Pelvis W/WO Contrast Normal [facility] Carbon dioxide, total [Moles /volume] in Central venous bloodOrdered By: Deion Levy on 03-18-2025 CO2 [Moles/Vol] 32.8 mmol/L High 21.0-32.0 [facility] Chest 1 View (Portable)on Chest 1 View (Portable) Normal [facility] Chest 1 View (Portable) Normal [facility] Chest PA and Lateralon 03-18 Chest PA and Lateral Normal [facility] Chloride assayOrdered By: Mai Levy on 03-18-2025 Chloride [Moles/Vol] 84 mmol/L Low 98-108 [facility] Comprehensive Metabolic Prof ilon 03-18-2025 Albumin [Mass/Vol] 4.1 g/dL Normal 3.4-4.8 [facility] Comment on above: Performed By: #### L 501.9520, L500.4050, L100.0100 ####[facility] [address] [place], [address] Albumin/Globulin [Mass ratio] 1.1 {ratio} Normal 0.9-2.4 [facility] Comment on above: Performed By: #### L 501.9520, L500.4050, L100.0100 ####[facility] [address] [place], [address] ALK PHOS 162 U/L High 35-104 [facility] Comment on above: Performed By: #### L 501.9520, L500.4050, L100.0100 ####[facility] [address] [place], [address] ALT [Catalytic activity/Vol] 61 U/L High <=34 [facility] Comment on above: Performed By: #### L 501.9520, L500.4050, L100.0100 ####[facility] [address] [place], [address] AST [Catalytic activity/Vol] 86 U/L High <=31 [facility] Comment on above: Performed By: #### L 501.9520, L500.4050, L100.0100 ####[facility] [address] [place], [address] Bilirubin [Mass/Vol] 0.35 mg/dL Normal 0.00-1.30 [facility] Comment on above: Performed By: #### L 501.9520, L500.4050, L100.0100 ####[facility] [address] [place], [address] BUN/CRE 22.8 RATIO High 10-20 [facility] Comment on above: Performed By: #### L 501.9520, L500.4050, L100.0100 ####[facility] [address] [place], [address] Calcium [Mass/Vol] 9.7 mg/dL Normal 7.6-11.0 [facility] Comment on above: Performed By: #### L 501.9520, L500.4050, L100.0100 ####[facility] [address] [place], [address] Chloride [Moles/Vol] 84 mmol/L Low 98-108 [facility] Comment on above: Performed By: #### L 501.9520, L500.4050, L100.0100 ####[facility] [address] [place], [address] CO2 [Moles/Vol] 32.8 mmol/L High 21.0-32.0 [facility] Comment on above: Performed By: #### L 501.9520, L500.4050, L100.0100 ####[facility] [address] [place], [address] Creatinine [Mass/Vol] 2.22 mg/dL High 0.70-1.20 [facility] Comment on above: Performed By: #### L 501.9520, L500.4050, L100.0100 ####[facility] [address] [place], [address] ECRCL 27.85 ml/min Low 50-250 [facility] Comment on above: Performed By: #### L 501.9520, L500.4050, L100.0100 ####[facility] [address] [place], [address] GAP 14 Normal 5-15 [facility] Comment on above: Performed By: #### L 501.9520, L500.4050, L100.0100 ####[facility] [address] [place], [address] GFR/1.73 sq M.predicted among non-blacks MDRD (S/P/Bld) [Vol rate/Area] 22 mL/min/{1.73_m2} Low >60 [facility] Comment on above: Result Comment: mL/m in/1.73m2 CKD-EPI Creatinine Equation (2020) Performed By: #### L 501.9520, L500.4050, L100.0100 ####[facility] [address] [place], [address] Globulin (S) [Mass/Vol] 3.6 g/dL Normal 2.2-4.2 [facility] Comment on above: Performed By: #### L 501.9520, L500.4050, L100.0100 ####[facility] [address] [place], [address] Glucose [Mass/Vol] 115 mg/dL High 70-99 [facility] Comment on above: Performed By: #### L 501.9520, L500.4050, L100.0100 ####[facility] [address] [place], [address] Potassium [Moles/Vol] 4.4 mmol/L Normal 3.3-5.1 [facility] Comment on above: Performed By: #### L 501.9520, L500.4050, L100.0100 ####[facility] [address] [place], [address] Sodium [Moles/Vol] 131 mmol/L Low 133-145 [facility] Comment on above: Performed By: #### L 501.9520, L500.4050, L100.0100 ####[facility] [address] [place], [address] T PROT 7.7 g/dL Normal 5.9-8.4 [facility] Comment on above: Performed By: #### L 501.9520, L500.4050, L100.0100 ####[facility] [address] [place], [address] Urea nitrogen [Mass/Vol] 51 mg/dL High 4-19 [facility] Comment on above: Performed By: #### L 501.9520, L500.4050, L100.0100 ####[facility] [address] [place], [address] Emergency Department Summary on 03-18-2025 Emergency Department Summary Normal [facility] Eosinophil percentageOrdered By: Deion Levy on 03-18-2025 Eosinophils/100 WBC (Bld) 0.0 % 0-5 [facility] Erythrocyte Sed Rateon 03-18 SED RATE 37 mm/hr High 0-30 [facility] Comment on above: Performed By: #### L 101.9900, L509.7001, L501.6710 ####[facility] [address] [place], [address] Erythrocyte distribution wid th ratioOrdered By: Deion Levy on 03-18-2025 Erythrocyte distribution width (RBC) [Ratio] 14.6 % 11.6-14.6 [facility] Erythrocyte distribution wid th standard deviationOrdered By: Deion Levy on 03-18-2025 Erythrocyte distribution width (RBC) [Ratio] 49.9 fl High 35.1-43.9 [facility] Erythrocyte sedimentation ra teOrdered By: Emili Lee on 03-18-2025 ESR (Bld) [Velocity] 37 mm/h High 0-30 [facility] Glomerular filtration rate ( GFR) estimation/1.73 sq m using serum, plasma, or whole bOrdered By: Deion Levy on 03-18-2025 GFR/1.73 sq M.predicted among non-blacks MDRD (S/P/Bld) [Vol rate/Area] 22 mL/min/{1.73_m2} Low >60 [facility] Comment on above: mL/min/1.73m2 CKD-EP I Creatinine Equation (2020) [facility] deOrdered By: Otilia Hernandez on 03-18-2025 Glucose [Mass/Vol] 118 mg/dL High 74-106 [facility] Gram stainOrdered By: Deion johnson on 03-18-2025 Microscopic observation Gram stain Nom (Unsp spec) [facility] Microscopic observation Gram stain Nom (Unsp spec) [facility] H AND P Exam - Hospitaliston 03-18-2025 H&P Exam - Hospitalist Normal [facility] Hematocrit Auto (Bld) [Volum e fraction]Ordered By: Deion Levy on 03-18-2025 Hematocrit (Bld) [Volume fraction] 50.5 % High 37-47 [facility] Hemoglobin measurementOrdere d By: Deion Levy on 03-18-2025 Hemoglobin (Bld) [Mass/Vol] 15.8 g/dL High 12.0-15.0 [facility] Immature granulocytes/100 WB C Auto (Bld)Ordered By: [facility] on 03-18-2025 Immature granulocytes/100 WBC (Bld) 0.900 % 0.0-0.9 [facility] Comment on above: IG% - Immature Granu locytes (promyelocytes, myelocytes and metamyelocytes) > 1% indicates that a LEFT SHIFT is Present. International normalized rat io (INR) calculationOrdered By: [facility] on 03-18-2025 INR Coag (Bld) [Relative time] 0.9 {INR} [facility] Ketones Test strip Ql (U)Ord ered By: [facility] on 03-18-2025 Ketones Ql (U) Negative Negative [facility] L509.7001on 03-18-2025 Procalcitonin 0.10 ng/mL Normal <=0.10 [facility] Comment on above: Result Comment: Inte rpretation:<0.10-0.25 ng/mL: Antibiotic therapy discouraged. Bacterialinfection unlikely.0.25-0.50 ng/mL: Antibiotic therapy encouraged. Bacterialinfection possible.>0.50 ng/mL: Antibiotic therapy strongly encouraged.Suggestive of presence of bacterial infection.PCT should always be interpreted in the clinical context ofthe patient. Therefore, clinicians should use the PCTresults in conjunction with other laboratory findings andclinical signs of the patient. Performed By: #### L 101.9900, L509.7001, L501.6710 ####[facility] [address] [place], [place], [address] Laboratory - Chemistry and C hemistry - challengeOrdered By: [facility] on 03-18-2025 AST [Catalytic activity/Vol] 86 U/L High <32 [facility] Lactic Acidon 03-18-2025 Lactate [Moles/Vol] 1.1 mmol/L Normal 0.0-2.0 [facility] Comment on above: Order Comment: Y Performed By: #### L 300.3900, L300.4310, L503.6005, M200.1000 ####[facility] [address] [place], [address] Lactic acid measurementOrder ed By: Deion Levy on 03-18-2025 Lactate [Moles/Vol] 1.1 mmol/L 0.0-2.0 [facility] MCV (mean corpuscular volume ) determinationOrdered By: Deion Levy on 03-18-2025 MCV (RBC) [Entitic vol] 93.5 fL 81-99 [facility] Mean corpuscular hemoglobin (MCH) determinationOrdered By: Deion Levy on 03-18-2025 MCH (RBC) [Entitic mass] 29.3 pg 27.0-32.0 [facility] Mean corpuscular hemoglobin concentration (MCHC) determinationOrdered By: Deionfreida Levy on 03-18-2025 MCHC (RBC) [Mass/Vol] 31.3 g/dL Low 32-36 [facility] Mean platelet volume determi nationOrdered By: Deionfreida Levy on 03-18-2025 Platelet mean volume (Bld) [Entitic vol] 10.4 fL 6.2-12.0 [facility] Measurement, pHOrdered By: Wenceslao Lee on 03-18-2025 pH (Unsp spec) 7.32 [pH] Low 7.35-7.45 [facility] Microbial respiratory cultur eOrdered By: Deion Levy on 03-18-2025 Microorganism identified Cx Nom (Unsp spec) or Staphylococcus aureus isolated. [facility] Microorganism identified Cx Nom (Unsp spec) or Staphylococcus aureus isolated. [facility] Microscopic analysis of urin e for red blood cells (RBC)Ordered By: Deion Levy on 03-18-2025 Microscopic analysis of urine for red blood cells (RBC) 0-5 SEEN /hpf 0-5 [facility] Monocyte percentageOrdered B y: Deion Levy on 03-18-2025 Monocytes/100 WBC (Bld) 7.0 % 0-10 [facility] Mucus LM Ql (Urine sed)Order ed By: Deion Levy on 03-18-2025 Mucus Ql (Urine sed) 0 SEEN /hpf [facility] Natriuretic peptide.B prohor mac N-Terminal [Mass/volume] in Serum or PlasmaOrdered By: Emili Lee on 03-18-2025 Natriuretic peptide.B prohormone N-Terminal [Mass/Vol] 2155 pg/mL High <1800 [facility] Comment on above: Heart Failure Unlike ly: < 300 pg/mLHeart Failure Likely< 50 Years: > 450 pg/mL50-75 Years: > 900 pg/mL>75 Years: > 1800 pg/mL Neutrophil percentageOrdered By: Deion Levy on 03-18-2025 Neutrophils/100 WBC (Bld) 84.3 % High 47-70 [facility] Nitrite Test strip Ql (U)Ord ered By: Deion Levy on 03-18-2025 Nitrite Ql (U) Negative Negative [facility] [facility] No Panel InformationOrdered By: Emili Lee on 03-18-2025 Bedside Blood Gas PEEP 5 [facility] Blood Gas Respiration Rate 14 [facility] Blood Gas Sample Site L Brach [facility] Blood Gas Specimen Type ART W [facility] Blood Gas Tidal Volume 400.0 mL [facility] Blood Gas Vent Mode AC/VC [facility] Oxygen Delivery Device Adult Vent [facility] Nucleated red blood cell per centageOrdered By: Deion Levy on 03-18-2025 Nucleated RBC/100 WBC (Bld) [Ratio] 0 % 0-5 [facility] Osmolality urOrdered By: Ketan Lee on 03-18-2025 Osmolality (U) [Osmolality] 437 mOsm/KG >50 [facility] Partial Thromboplast Timeon 03-18-2025 aPTT Coag (Bld) [Time] 27.8 s Normal 24.1-36.2 [facility] Comment on above: Performed By: #### L 300.3900, L300.4310, L503.6005, M200.1000 ####[facility] [address] [place], [address] Platelet countOrdered By: Mai Levy on 03-18-2025 Platelets (Bld) [#/Vol] 218 10*3/uL 150-450 [facility] Potassium measurement (mass/ volume)Ordered By: Deion Levy on 03-18-2025 Potassium (Unsp spec) [Mass/Vol] 4.4 mmol/L 3.3-5.1 [facility] Pro- Brain NATRIURETIC PEPTI Rita 03-18-2025 Natriuretic peptide B (Bld) [Mass/Vol] 2155 pg/mL High <=1800 [facility] Comment on above: Result Comment: Hear t Failure Unlikely: < 300 pg/mLHeart Failure Likely< 50 Years: > 450 pg/mL50-75 Years: > 900 pg/mL>75 Years: > 1800 pg/mL Performed By: #### L 503.7501 ####[facility] [address] [place], [place], [id number] Procalcitonin [Mass/volume] in Serum or Plasma by ImmunoassayOrdered By: Emili Lee on 03-18-2025 Procalcitonin IA [Mass/Vol] 0.10 ng/mL <0.11 [facility] Comment on above: Interpretation:<0.10 -0.25 [...] Protein Ql (U) 30 mg/dl High Negative [facility] Prothrombin Time w/INRon INR Coag (PPP) [Relative time] 0.9 {INR} Normal [facility] Comment on above: Performed By: #### L 300.3900, L300.4310, L503.6005, M200.1000 ####[facility] [address] [place], [place], [id number] PT Coag (PPP) [Time] 12.4 s Normal 11.7-14.9 [facility] Comment on above: Performed By: #### L 300.3900, L300.4310, L503.6005, M200.1000 ####[facility] [address] [place], [address] Prothrombin timeOrdered By: Deion Levy on 03-18-2025 PT Coag (PPP) [Time] 12.4 s 11.7-14.9 [facility] RBC Auto (Bld) [#/Vol]Ordere d By: Deion Levy on 03-18-2025 RBC (Bld) [#/Vol] 5.40 10*6/uL 4.2-5.4 [facility] Random urine creatinine lisa urement (mass/volume)Ordered By: Emili Lee on 03-18-2025 Creatinine Unsp time (U) [Mass/Vol] 83.80 mg/dL 28.00-217.0 0 [facility] Respiratory pathogens detect ion panel by molecular detection methodOrdered By: mEili Lee on 03-18-2025 Respiratory pathogens DNA and RNA panel RANJIT+probe (Resp) [facility] Respiratory pathogens DNA and RNA panel RANJIT+probe (Resp) [facility] Serum creatinine measurement (mass/volume)Ordered By: Deion Levy on 03-18-2025 Creatinine [Mass/Vol] 2.22 mg/dL High 0.70-1.20 [facility] Serum globulin measurementOr dered By: Deion Levy on 03-18-2025 Globulin (S) [Mass/Vol] 3.6 g/dL 2.2-4.2 [facility] Serum glucose measurement (m ass/volume)Ordered By: Deion Levy on 03-18-2025 Glucose [Mass/Vol] 115 mg/dL High 70-99 [facility] Serum or plasma C reactive p rotein measurement (mass/volume)Ordered By: Emili Lee on 03-18-2025 CRP [Mass/Vol] 5.32 mg/L High 0.0-3.0 [facility] Serum or plasma alanine gao otransferase (ALT) measurementOrdered By: Deionfreida Levy on 03-18-2025 ALT [Catalytic activity/Vol] 61 U/L High <35 [facility] Serum or plasma albumin lisa urement (mass/volume)Ordered By: Deion Levy on 03-18-2025 Albumin [Mass/Vol] 4.1 g/dL 3.4-4.8 [facility] Serum or plasma albumin/glob ulin mass ratioOrdered By: Deion Levy on 03-18-2025 Albumin/Globulin [Mass ratio] 1.1 {ratio} 0.9-2.4 [facility] Serum or plasma alkaline bee sphatase measurementOrdered By: Deion Levy on 03-18-2025 ALP [Catalytic activity/Vol] 162 U/L High 35-104 [facility] Serum or plasma calcium lisa urement (mass/volume)Ordered By: Deion Levy on 03-18-2025 Calcium [Mass/Vol] 9.7 mg/dL 7.6-11.0 [facility] Serum or plasma creatine kin ase activityOrdered By: Claire Mayorga on 03-18-2025 CK [Catalytic activity/Vol] 137 U/L 24-195 [facility] Serum or plasma urea nitroge n measurement (mass/volume)Ordered By: Deion Levy on 03-18-2025 Urea nitrogen [Mass/Vol] 51 mg/dL High 4-19 [facility] Sodium levelOrdered By: Deion Levy on 03-18-2025 Sodium [Moles/Vol] 131 mmol/L Low 133-145 [facility] Squamous epithelial cells de tection in urine sediment by light microscopyOrdered By: Deion Levy on 03-18-2025 Epithelial cells.squamous LM Ql (Urine sed) 0-5 SEEN /hpf 5-10 [facility] TSH DL <= 0.005 mIU/L QnOrde red By: Deion Levy on 03-18-2025 TSH Qn 1.650 uIU/mL 0.300-4.200 [facility] Thyroid Stim Hormone (TSH)on 03-18-2025 TSH 1.650 uIU/mL Normal 0.300-4.200 [facility] Comment on above: Performed By: #### L 501.9518, L500.4050, L100.0100 ####[facility] [address] [place], [address] Total carbon dioxide measure mentOrdered By: Emili Lee on 03-18-2025 CO2 [Moles/Vol] 32 mmol/L [facility] Total proteinOrdered By: Deion Levy on 03-18-2025 Protein [Mass/Vol] 7.7 g/dL 5.9-8.4 [facility] Transitional cells detection in urine sediment by light microscopyOrdered By: Deion Levy on 03-18-2025 Transitional cells LM Ql (Urine sed) 0-5 SEEN /hpf 0-5 [facility] Triglycerides measurementOrd ered By: Claire Tierra on 03-18-2025 Triglyceride [Mass/Vol] 90 mg/dL <199 [facility] Comment on above: The drugs N-Acetylcy steine and Metamizole may falsely depress this assay. Normal range: <150 mg/dLBorderline High: 150-199 mg/dLHigh: 200-499 mg/dLVery High: >500 mg/dL Urinalysis, Completeon 03-18 BACTERIA 1+ /hpf Normal None Seen [facility] Comment on above: Order Comment: SOLITARIO TER SPECIMEN Performed By: #### L 400.0001 ####[facility] [address] [place], [address] EPI,TRANSITION 0-5 SEEN Normal 0-5 [facility] Comment on above: Order Comment: SOLITARIO TER SPECIMEN Performed By: #### L 400.0001 ####[facility] [address] [place], [address] WBC 0-5 SEEN Normal 0-5 [facility] Comment on above: Order Comment: SOLITARIO TER SPECIMEN Performed By: #### L 400.0001 ####[facility] [address] [place], [address] EPI,SQUAMOUS 0-5 SEEN Normal 5-10 [facility] Comment on above: Order Comment: SOLITARIO TER SPECIMEN Performed By: #### L 400.0001 ####[facility] [address] [place], [address] RBC 0-5 SEEN Normal 0-5 [facility] Comment on above: Order Comment: SOLITARIO TER SPECIMEN Performed By: #### L 400.0001 ####[facility] [address] [place], [address] Mucus Ql (Urine sed) 0 SEEN Normal [facility] Comment on above: Order Comment: SOLITARIO PINK SPECIMEN Performed By: #### L 400.0001 ####[facility] [address] [place], [address] Urine clarityOrdered By: Deion Levy on 03-18-2025 Clarity (U) Clear Clear [facility] Urine color determinationOrd ered By: Deion Levy on 03-18-2025 Color (U) Yellow Yellow [facility] Urine cultureOrdered By: Deion Levy on 03-18-2025 Bacteria identified Cx Nom (U) Culture exhibits no growth. [facility] Bacteria identified Cx Nom (U) Culture exhibits no growth. [facility] Urine glucose detectionOrder ed By: Deion Levy on 03-18-2025 Glucose Ql (U) Normal mg/dl Normal [facility] Urine leukocyte esterase det ection by dipstickOrdered By: Deion Levy on 03-18-2025 Leukocyte esterase Test strip Ql (U) Negative Negative [facility] Urine pHOrdered By: Deion guan on 03-18-2025 pH (U) 6.0 [pH] 5.0 - 8.0 [facility] Urine potassium measurement (moles/volume)Ordered By: Emili Lee on 03-18-2025 Potassium (U) [Moles/Vol] 31.9 mmol/L Not Establ. [facility] Urine sediment bacteria coun t by microscopy (number/high power field)Ordered By: Deion Levy on 03-18-2025 Bacteria LM.HPF (Urine sed) [#/Area] 1 /[HPF] None Seen [facility] Urine sodium measurement (mo les/volume)Ordered By: Emili Lee on 03-18-2025 Sodium (U) [Moles/Vol] 28 mmol/L Not Establ. [facility] Urine specific gravity measu rementOrdered By: Deion Levy on 03-18-2025 Specific gravity (U) [Rel density] 1.015 1.002-1.030 [facility] Urine urobilinogen measureme ntOrdered By: Deion Levy on 03-18-2025 Urobilinogen Ql (U) Normal mg/dl Normal [facility] White blood cell (WBC) count Ordered By: Deion Levy on 03-18-2025 WBC (Bld) [#/Vol] 9.9 10*3/uL 4.4-11.0 [facility] White blood cell countOrdere d By: Deion Levy on 03-18-2025 White blood cell count 0-5 SEEN /hpf 0-5 [facility] CTA Chst, Abd, Pel W and/or WOon 03-17-2025 CTA Chst, Abd, Pel W and/or WO Normal [facility] Anion gap in Serum or Plasma Ordered By: Kamar Grimes on 03-10-2025 Anion gap [Moles/Vol] 12 mmol/L -15 [facility] BUN/creatinine ratioOrdered By: Kamar Grimes on 03-10-2025 Urea nitrogen/Creatinine [Mass ratio] 27.2 mg/mg High 10-20 [facility] Basic Metabolic Profile (BMP )on 03-10-2025 BUN/CRE 27.2 RATIO High 10-20 [facility] Comment on above: Order Comment: Order Date: 03/05/25Order Info: 0667- - BMP Performed By: #### L 500.2500 ####[facility] [address] [place], [address] Calcium [Mass/Vol] 9.4 mg/dL Normal 7.6-11.0 [facility] Comment on above: Order Comment: Order Date: 03/05/25Order Info: 0667- - BMP Performed By: #### L 500.2500 ####[facility] [address] [place], [address] Chloride [Moles/Vol] 95 mmol/L Low 98-108 [facility] Comment on above: Order Comment: Order Date: 03/05/25Order Info: 0667- - BMP Performed By: #### L 500.2500 ####[facility] [address] [place], [address] CO2 [Moles/Vol] 31.4 mmol/L Normal 21.0-32.0 [facility] Comment on above: Order Comment: Order Date: 03/05/25Order Info: [id number] - BMP Performed By: #### L 500.2500 ####[facility] [address] [place], [address] Creatinine [Mass/Vol] 1.03 mg/dL Normal 0.70-1.20 [facility] Comment on above: Order Comment: Order Date: 03/05/25Order Info: [id number] - BMP Performed By: #### L 500.2500 ####[facility] [address] [place], [address] GAP 12 Normal 5-15 [facility] Comment on above: Order Comment: Order Date: 03/05/25Order Info: [id number] - BMP Performed By: #### L 500.2500 ####[facility] [address] [place], [address] GFR/1.73 sq M.predicted among non-blacks MDRD (S/P/Bld) [Vol rate/Area] 56 mL/min/{1.73_m2} Low >60 [facility] Comment on above: Order Comment: Order Date: 03/05/25Order Info: 666-07 - BMP Result Comment: mL/m in/1.73m2 CKD-EPI Creatinine Equation (2020) Performed By: #### L 500.2500 ####[facility] [address] [place], [address] Glucose [Mass/Vol] 79 mg/dL Normal 70-99 [facility] Comment on above: Order Comment: Order Date: 03/05/25Order Info: 666-07 - BMP Performed By: #### L 500.2500 ####[facility] [address] [place], [address] Potassium [Moles/Vol] 4.3 mmol/L Normal 3.3-5.1 [facility] Comment on above: Order Comment: Order Date: 03/05/25Order Info: [id number] - BMP Performed By: #### L 500.2500 ####[facility] [address] [place], [place], [address] Sodium [Moles/Vol] 138 mmol/L Normal 133-145 [facility] Comment on above: Order Comment: Order Date: 03/05/25Order Info: 0667 - BMP Performed By: #### L 500.2500 ####[facility] [address] [place], [address] Urea nitrogen [Mass/Vol] 28 mg/dL High 4-19 [facility] Comment on above: Order Comment: Order Date: 03/05/25Order Info: 0667- - BMP Performed By: #### L 500.2500 ####[facility] [address] [place], [address] Carbon dioxide, total [Moles /volume] in Central venous bloodOrdered By: Kamar Grimes on 03-10-2025 CO2 [Moles/Vol] 31.4 mmol/L 21.0-32.0 [facility] Chloride assayOrdered By: Jennifer Grimes on 03-10-2025 Chloride [Moles/Vol] 95 mmol/L Low 98-108 [facility] Glomerular filtration rate ( GFR) estimation/1.73 sq m using serum, plasma, or whole bOrdered By: Kamar Grimes on 03-10-2025 GFR/1.73 sq M.predicted among non-blacks MDRD (S/P/Bld) [Vol rate/Area] 56 mL/min/{1.73_m2} Low >60 [facility] Comment on above: mL/min/1.73m2 CKD-EP I Creatinine Equation (2020) Potassium measurement (mass/ volume)Ordered By: Kamar Grimes on 03-10-2025 Potassium (Unsp spec) [Mass/Vol] 4.3 mmol/L 3.3-5.1 [facility] Serum creatinine measurement (mass/volume)Ordered By: Kamar Grimes on 03-10-2025 Creatinine [Mass/Vol] 1.03 mg/dL 0.70-1.20 [facility] Serum glucose measurement (m ass/volume)Ordered By: Kamar Grimes on 03-10-2025 Glucose [Mass/Vol] 79 mg/dL 70-99 [facility] Serum or plasma calcium lisa urement (mass/volume)Ordered By: Kamar Grimes on 03-10-2025 Calcium [Mass/Vol] 9.4 mg/dL 7.6-11.0 [facility] Serum or plasma urea nitroge n measurement (mass/volume)Ordered By: Kamar Grimes on 03-10-2025 Urea nitrogen [Mass/Vol] 28 mg/dL High 4-19 [facility] Sodium levelOrdered By: Kamar Grimes on 03-10-2025 Sodium [Moles/Vol] 138 mmol/L 133-145 [facility] Anion gap in Serum or Plasma Ordered By: Kamar Grimes on 03-04-2025 Anion gap [Moles/Vol] 10 mmol/L 5-15 [facility] BUN/creatinine ratioOrdered By: Kamar Grimes on 03-04-2025 Urea nitrogen/Creatinine [Mass ratio] 36.5 mg/mg High 10-20 [facility] Bilirubin, totalOrdered By: Kamar Grimes on 03-04-2025 Bilirubin [Mass/Vol] 0.35 mg/dL 0.00-1.30 [facility] Carbon dioxide, total [Moles /volume] in Central venous bloodOrdered By: Kamar Grimes on 03-04-2025 CO2 [Moles/Vol] 34.8 mmol/L High 21.0-32.0 [facility] Chloride assayOrdered By: Jennifer Grimes on 03-04-2025 Chloride [Moles/Vol] 95 mmol/L Low 98-108 [facility] Comprehensive Metabolic Prof ilon 03-04-2025 Albumin [Mass/Vol] 3.7 g/dL Normal 3.4-4.8 [facility] Comment on above: Order Comment: Order Date: 02/18/25Order Info: [id number] - CMPOrder Info: [id number] - MG Performed By: #### L 500.4050, L501.5200 ####[facility] [address] [place], [address] Albumin/Globulin [Mass ratio] 1.3 {ratio} Normal 0.9-2.4 [facility] Comment on above: Order Comment: Order Date: 02/18/25Order Info: [id number] - CMPOrder Info: [id number] - MG Performed By: #### L 500.4050, L501.5200 ####[facility] [address] [place], [address] ALK PHOS 125 U/L High 35-104 [facility] Comment on above: Order Comment: Order Date: 02/18/25Order Info: 86-1 - CMPOrder Info: [id number] - MG Performed By: #### L 500.4050, L501.5200 ####[facility] [address] [place], [address] ALT [Catalytic activity/Vol] 22 U/L Normal <=34 [facility] Comment on above: Order Comment: Order Date: 02/18/25Order Info: [id number] - CMPOrder Info: [id number] - MG Performed By: #### L 500.4050, L501.5200 ####[facility] [address] [place], [address] AST [Catalytic activity/Vol] 28 U/L Normal <=31 [facility] Comment on above: Order Comment: Order Date: 02/18/25Order Info: [id number] - CMPOrder Info: [id number] - MG Performed By: #### L 500.4050, L501.5200 ####[facility] [address] [place], [address] Bilirubin [Mass/Vol] 0.35 mg/dL Normal 0.00-1.30 [facility] Comment on above: Order Comment: Order Date: 02/18/25Order Info: [id number] - CMPOrder Info: [id number] - MG Performed By: #### L 500.4050, L501.5200 ####[facility] [address] [place], [address] BUN/CRE 36.5 RATIO High 10-20 [facility] Comment on above: Order Comment: Order Date: 02/18/25Order Info: [id number] - CMPOrder Info: [id number] - MG Performed By: #### L 500.4050, L501.5200 ####[facility] [address] [place], [address] Calcium [Mass/Vol] 9.2 mg/dL Normal 7.6-11.0 [facility] Comment on above: Order Comment: Order Date: 02/18/25Order Info: [id number] - CMPOrder Info: [id number] - MG Performed By: #### L 500.4050, L501.5200 ####[facility] [address] [place], [address] Chloride [Moles/Vol] 95 mmol/L Low 98-108 [facility] Comment on above: Order Comment: Order Date: 02/18/25Order Info: [id number] - CMPOrder Info: [id number] - MG Performed By: #### L 500.4050, L501.5200 ####[facility] [address] [place], [address] CO2 [Moles/Vol] 34.8 mmol/L High 21.0-32.0 [facility] Comment on above: Order Comment: Order Date: 02/18/25Order Info: [id number] - CMPOrder Info: [id number] - MG Performed By: #### L 500.4050, L501.5200 ####[facility] [address] [place], [address] Creatinine [Mass/Vol] 1.73 mg/dL High 0.70-1.20 [facility] Comment on above: Order Comment: Order Date: 02/18/25Order Info: [id number] - CMPOrder Info: [id number] - MG Performed By: #### L 500.4050, L501.5200 ####[facility] [address] [place], [address] GAP 10 Normal 5-15 [facility] Comment on above: Order Comment: Order Date: 02/18/25Order Info: [id number] - CMPOrder Info: [id number] - MG Performed By: #### L 500.4050, L501.5200 ####[facility] [address] [place], [address] GFR/1.73 sq M.predicted among non-blacks MDRD (S/P/Bld) [Vol rate/Area] 30 mL/min/{1.73_m2} Low >60 [facility] Comment on above: Order Comment: Order Date: 02/18/25Order Info: [id number] - CMPOrder Info: [id number] - MG Result Comment: mL/m in/1.73m2 CKD-EPI Creatinine Equation (2020) Performed By: #### L 500.4050, L501.5200 ####[facility] [address] [place], [address] Globulin (S) [Mass/Vol] 2.9 g/dL Normal 2.2-4.[address] [facility] Comment on above: Order Comment: Order Date: 02/18/25Order Info: [id number] - CMPOrder Info: [id number] - MG Performed By: #### L 500.4050, L501.5200 ####[facility] [address] [place], [address] Glucose [Mass/Vol] 93 mg/dL Normal 70-99 [facility] Comment on above: Order Comment: Order Date: 02/18/25Order Info: [id number] - CMPOrder Info: [id number] - MG Performed By: #### L 500.4050, L501.5200 ####[facility] [address] [place], [address] Potassium [Moles/Vol] 4.0 mmol/L Normal 3.3-5.1 [facility] Comment on above: Order Comment: Order Date: 02/18/25Order Info: [id number] - CMPOrder Info: [id number] - MG Performed By: #### L 500.4050, L501.5200 ####[facility] [address] [place], [address] Sodium [Moles/Vol] 139 mmol/L Normal 133-145 [facility] Comment on above: Order Comment: Order Date: 02/18/25Order Info: [id number] - CMPOrder Info: [id number] - MG Performed By: #### L 500.4050, L501.5200 ####[facility] [address] [place], [address] T PROT 6.6 g/dL Normal 5.9-8.4 [facility] Comment on above: Order Comment: Order Date: 02/18/25Order Info: [id number] - CMPOrder Info: [id number] - MG Performed By: #### L 500.4050, L501.5200 ####[facility] [address] [place], [address] Urea nitrogen [Mass/Vol] 63 mg/dL High 4-19 [facility] Comment on above: Order Comment: Order Date: 02/18/25Order Info: [id number] - CMPOrder Info: [id number] - MG Performed By: #### L 500.4050, L501.5200 ####[facility] [address] [place], [address] Echo Complete W/ Contraston 03-04-2025 Echo Complete W/ Contrast Normal [facility] Echocardiogram study reportO rdered By: Calrene Salazar on 03-04-2025 Study report [facility] [address] [place] [address] Echo Complete W/ Contrast 03/04/25 0957 MR#: [id number] Acct: [id number] Name: OSCAR WOO Rep #:[id number] : 1950 75 From: Carlene Salazar MD [...] Date Dictated: 03/04/25956 Date Transcribed: 03/04/25 1237 Environmental Quality Analyst: Signed [facility] Work Phone: Glomerular filtration rate ( GFR) estimation/1.73 sq m using serum, plasma, or whole bOrdered By: Kamar Grimes on 03-04-2025 GFR/1.73 sq M.predicted among non-blacks MDRD (S/P/Bld) [Vol rate/Area] 30 mL/min/{1.73_m2} Low >60 [facility] Comment on above: mL/min/1.73m2 CKD-EP I Creatinine Equation (2020) Laboratory - Chemistry and C hemistry - challengeOrdered By: Kamar Grimes on 03-04-2025 AST [Catalytic activity/Vol] 28 U/L <32 [facility] Magnesiumon 03-04-2025 Magnesium [Mass/Vol] 1.9 mg/dL Normal 1.5-2.2 [facility] Comment on above: Order Comment: Order Date: 02/18/25Order Info: [id number] - CMPOrder Info: [id number] - MG Performed By: #### L 500.4050, L501.5200 ####[facility] [address] [place], [address] Magnesium measurement (mass/ volume)Ordered By: Kamar Grimes on 03-04-2025 Magnesium (Unsp spec) [Mass/Vol] 1.9 mg/dL 1.5-2.2 [facility] No Panel InformationOrdered By: Kamar Grimes on 03-04-2025 28 U/L <32 [facility] Potassium measurement (mass/ volume)Ordered By: Kamar Grimes on 03-04-2025 Potassium (Unsp spec) [Mass/Vol] 4.0 mmol/L 3.3-5.1 [facility] Serum creatinine measurement (mass/volume)Ordered By: Kamar Grimes on 03-04-2025 Creatinine [Mass/Vol] 1.73 mg/dL High 0.70-1.20 [facility] Serum globulin measurementOr dered By: Kamar Grimes on 03-04-2025 Globulin (S) [Mass/Vol] 2.9 g/dL 2.2-4.[address] [facility] Serum glucose measurement (m ass/volume)Ordered By: Kamar Grimes on 03-04-2025 Glucose [Mass/Vol] 93 mg/dL 70-99 [facility] Serum or plasma alanine gao otransferase (ALT) measurementOrdered By: Kamar Grimes on 03-04-2025 ALT [Catalytic activity/Vol] 22 U/L <35 [facility] Serum or plasma albumin lisa urement (mass/volume)Ordered By: Kamar Grimes on 03-04-2025 Albumin [Mass/Vol] 3.7 g/dL 3.4-4.8 [facility] Serum or plasma albumin/glob ulin mass ratioOrdered By: Kamar Grimes on 03-04-2025 Albumin/Globulin [Mass ratio] 1.3 {ratio} 0.9-2.4 [facility] Serum or plasma alkaline bee sphatase measurementOrdered By: Kamar Grimes on 03-04-2025 ALP [Catalytic activity/Vol] 125 U/L High 35-104 [facility] Serum or plasma calcium lisa urement (mass/volume)Ordered By: Kamar Grimes on 03-04-2025 Calcium [Mass/Vol] 9.2 mg/dL 7.6-11.0 [facility] Serum or plasma urea nitroge n measurement (mass/volume)Ordered By: Kamar Grimes on 03-04-2025 Urea nitrogen [Mass/Vol] 63 mg/dL High 4-19 [facility] Sodium levelOrdered By: Kamar Grimes on 03-04-2025 Sodium [Moles/Vol] 139 mmol/L 133-145 [facility] Total proteinOrdered By: Esmer Grimes on 03-04-2025 Protein [Mass/Vol] 6.6 g/dL 5.9-8.4 [facility] Acid Fast Bacillus Cultureon 02-19-2025 tAFBC Normal [facility] Comment on above: Performed By: #### M 100.4001, M100.2900, M100.2000, M300.3000, L200.0400, M600.2000, M300.2000 ####[facility] [address] [place], [address] Acid Fast Bacillus Smear/Flu oron 02-19-2025 tafb Normal [facility] Comment on above: Performed By: #### M 100.4001, M100.2900, M100.2000, M300.3000, L200.0400, M600.2000, M300.2000 ####[facility] [address] [place], [address] Culture, Fungus 8482on 02-19 CUF Normal [facility] Comment on above: Performed By: #### M 100.4001, M100.2900, M100.2000, M300.3000, L200.0400, M600.2000, M300.2000 ####[facility] [address] [place], [address] Absolute lymphocyte countOrd ered By: Kamar Grimes on 02-10-2025 Lymphocytes Auto (Unsp spec) [#/Vol] 1.51 10*3/uL 0.83-4.51 [facility] Absolute neutrophil countOrd ered By: Kamar Grimes on 02-10-2025 Neutrophils (Bld) [#/Vol] 7.4 10*3/uL 2.0-7.7 [facility] Anion gap in Serum or Plasma Ordered By: Kamar Grimes on 02-10-2025 Anion gap [Moles/Vol] 14 mmol/L 5-15 [facility] Automated lymphocyte count a s percentage of total leukocytesOrdered By: Kamar Grimes on 02-10-2025 Lymphocytes/100 WBC Auto (Unsp spec) 15.2 % Low 19-41 [facility] BUN/creatinine ratioOrdered By: Kamar Grimes on 02-10-2025 Urea nitrogen/Creatinine [Mass ratio] 26.9 mg/mg High 10-20 [facility] Basophil percentageOrdered B y: Kamar Grimes on 02-10-2025 Basophils/100 WBC (Bld) 0.5 % 0-1 [facility] Bilirubin, totalOrdered By: Kamar Grimes on 02-10-2025 Bilirubin [Mass/Vol] 0.39 mg/dL 0.00-1.30 [facility] CBC W/Diff, Automatedon 01-31 Absolute Lymph 1.51 X10 3/uL Normal 0.83-4.51 [facility] Comment on above: Order Comment: Order Date: 02/10/25Order Info: [id number] - CBCD Performed By: #### L 500.4050, L501.5200, L100.0100 ####[facility] [address] [place], [address] Absolute Neut 7.4 X10 3/uL Normal 2.0-7.7 [facility] Comment on above: Order Comment: Order Date: 02/10/25Order Info: [id number] - CBCD Performed By: #### L 500.4050, L501.5200, L100.0100 ####[facility] [address] [place], [address] Basophils/100 WBC (Bld) 0.5 % Normal 0-1 [facility] Comment on above: Order Comment: Order Date: 02/10/25Order Info: [id number] - CBCD Performed By: #### L 500.4050, L501.5200, L100.0100 ####[facility] [address] [place], [address] Eosinophils/100 WBC (Bld) 2.4 % Normal 0-5 [facility] Comment on above: Order Comment: Order Date: 02/10/25Order Info: [id number] - CBCD Performed By: #### L 500.4050, L501.5200, L100.0100 ####[facility] [address] [place], [address] Erythrocyte distribution width (RBC) [Ratio] 13.6 % Normal 11.6-14.6 [facility] Comment on above: Order Comment: Order Date: 02/10/25Order Info: [id number] - CBCD Performed By: #### L 500.4050, L501.5200, L100.0100 ####[facility] [address] [place], [address] Hematocrit (Bld) [Volume fraction] 43.3 % Normal 37-47 [facility] Comment on above: Order Comment: Order Date: 02/10/25Order Info: [id number] - CBCD Performed By: #### L 500.4050, L501.5200, L100.0100 ####[facility] [address] [place], [address] Hemoglobin (Bld) [Mass/Vol] 13.7 g/dL Normal 12.0-15.0 [facility] Comment on above: Order Comment: Order Date: 02/10/25Order Info: [id number] - CBCD Performed By: #### L 500.4050, L501.5200, L100.0100 ####[facility] [address] [place], [address] IG% 0.400 Normal 0.0-0.9 [facility] Comment on above: Order Comment: Order Date: 02/10/25Order Info: [id number] - CBCD Result Comment: IG% - Immature Granulocytes (promyelocytes, myelocytes andmetamyelocytes) > 1% indicates that a LEFT SHIFT is Present. Performed By: #### L 500.4050, L501.5200, L100.0100 ####[facility] [address] [place], [address] Lymphocytes/100 WBC (Bld) 15.2 % Low 19-41 [facility] Comment on above: Order Comment: Order Date: 02/10/25Order Info: [id number] - CBCD Performed By: #### L 500.4050, L501.5200, L100.0100 ####[facility] [address] [place], [address] MCH (RBC) [Entitic mass] 29.1 pg Normal 27.0-32.0 [facility] Comment on above: Order Comment: Order Date: 02/10/25Order Info: [id number] - CBCD Performed By: #### L 500.4050, L501.5200, L100.0100 ####[facility] [address] [place], [address] MCHC (RBC) [Mass/Vol] 31.6 g/dL Low 32-36 [facility] Comment on above: Order Comment: Order Date: 02/10/25Order Info: [id number] - CBCD Performed By: #### L 500.4050, L501.5200, L100.0100 ####[facility] [address] [place], [address] MCV (RBC) [Entitic vol] 92.1 fL Normal 81-99 [facility] Comment on above: Order Comment: Order Date: 02/10/25Order Info: [id number] - CBCD Performed By: #### L 500.4050, L501.5200, L100.0100 ####[facility] [address] [place], [address] Monocytes/100 WBC (Bld) 7.3 % Normal 0-10 [facility] Comment on above: Order Comment: Order Date: 02/10/25Order Info: [id number] - CBCD Performed By: #### L 500.4050, L501.5200, L100.0100 ####[facility] [address] [place], [address] Neutrophils/100 WBC (Bld) 74.2 % High 47-70 [facility] Comment on above: Order Comment: Order Date: 02/10/25Order Info: 4-1 - CBCD Performed By: #### L 500.4050, L501.5200, L100.0100 ####[facility] [address] [place], [address] Nucleated RBC (Bld) [#/Vol] 0 10*3/uL Normal 0-5 [facility] Comment on above: Order Comment: Order Date: 02/10/25Order Info: 018- - CBCD Performed By: #### L 500.4050, L501.5200, L100.0100 ####[facility] [address] [place], [address] Platelet mean volume (Bld) [Entitic vol] 10.8 fL Normal 6.2-12.0 [facility] Comment on above: Order Comment: Order Date: 02/10/25Order Info: [id number] - CBCD Performed By: #### L 500.4050, L501.5200, L100.0100 ####[facility] [address] [place], [address] Platelets (Bld) [#/Vol] 166 10*3/uL Normal 150-450 [facility] Comment on above: Order Comment: Order Date: 02/10/25Order Info: [id number] - CBCD Performed By: #### L 500.4050, L501.5200, L100.0100 ####[facility] [address] [place], [address] RBC (Bld) [#/Vol] 4.70 10*6/uL Normal 4.2-5.4 [facility] Comment on above: Order Comment: Order Date: 02/10/25Order Info: [id number] - CBCD Performed By: #### L 500.4050, L501.5200, L100.0100 ####[facility] [address] [place], [address] RDW SD 45.9 fl High 35.1-43.9 [facility] Comment on above: Order Comment: Order Date: 02/10/25Order Info: [id number]- - CBCD Performed By: #### L 500.4050, L501.5200, L100.0100 ####[facility] [address] [place], [address] WBC (Bld) [#/Vol] 9.9 10*3/uL Normal 4.4-11.0 [facility] Comment on above: Order Comment: Order Date: 02/10/25Order Info: [id number] - CBCD Performed By: #### L 500.4050, L501.5200, L100.0100 ####[facility] [address] [place], [address] Carbon dioxide, total [Moles /volume] in Central venous bloodOrdered By: Kamar Grimes on 02-10-2025 CO2 [Moles/Vol] 29.4 mmol/L 21.0-32.0 [facility] Chest PA and Lateralon 02-10 Chest PA and Lateral Normal [facility] Chloride assayOrdered By: Jennifer Grimes on 02-10-2025 Chloride [Moles/Vol] 96 mmol/L Low 98-108 [facility] Comprehensive Metabolic Prof ilon 02-10-2025 Albumin [Mass/Vol] 3.9 g/dL Normal 3.4-4.8 [facility] Comment on above: Order Comment: Order Date: 02/10/25Order Info: [id number] - CMPOrder Info: [id number] - MG Performed By: #### L 500.4050, L501.5200, L100.0100 ####[facility] [address] [place], [address] Albumin/Globulin [Mass ratio] 1.3 {ratio} Normal 0.9-2.4 [facility] Comment on above: Order Comment: Order Date: 02/10/25Order Info: [id number] - CMPOrder Info: [id number] - MG Performed By: #### L 500.4050, L501.5200, L100.0100 ####[facility] [address] [place], [address] ALK PHOS 147 U/L High 35-104 [facility] Comment on above: Order Comment: Order Date: 02/10/25Order Info: [id number] - CMPOrder Info: [id number] - MG Performed By: #### L 500.4050, L501.5200, L100.0100 ####[facility] [address] [place], [address] ALT [Catalytic activity/Vol] 27 U/L Normal <=34 [facility] Comment on above: Order Comment: Order Date: 02/10/25Order Info: [id number] - CMPOrder Info: [id number] - MG Performed By: #### L 500.4050, L501.5200, L100.0100 ####[facility] [address] [place], [address] AST [Catalytic activity/Vol] 36 U/L High <=31 [facility] Comment on above: Order Comment: Order Date: 02/10/25Order Info: [id number] - CMPOrder Info: [id number] - MG Performed By: #### L 500.4050, L501.5200, L100.0100 ####[facility] [address] [place], [address] Bilirubin [Mass/Vol] 0.39 mg/dL Normal 0.00-1.30 [facility] Comment on above: Order Comment: Order Date: 02/10/25Order Info: [id number] - CMPOrder Info: [id number] - MG Performed By: #### L 500.4050, L501.5200, L100.0100 ####[facility] [address] [place], [address] BUN/CRE 26.9 RATIO High 10-20 [facility] Comment on above: Order Comment: Order Date: 02/10/25Order Info: [id number] - CMPOrder Info: [id number] - MG Performed By: #### L 500.4050, L501.5200, L100.0100 ####[facility] [address] [place], [address] Calcium [Mass/Vol] 9.8 mg/dL Normal 7.6-11.0 [facility] Comment on above: Order Comment: Order Date: 02/10/25Order Info: [id number] - CMPOrder Info: [id number] - MG Performed By: #### L 500.4050, L501.5200, L100.0100 ####[facility] [address] [place], [address] Chloride [Moles/Vol] 96 mmol/L Low 98-108 [facility] Comment on above: Order Comment: Order Date: 02/10/25Order Info: [id number] - CMPOrder Info: [id number] - MG Performed By: #### L 500.4050, L501.5200, L100.0100 ####[facility] [address] [place], [address] CO2 [Moles/Vol] 29.4 mmol/L Normal 21.0-32.0 [facility] Comment on above: Order Comment: Order Date: 02/10/25Order Info: [id number] - CMPOrder Info: [id number] - MG Performed By: #### L 500.4050, L501.5200, L100.0100 ####[facility] [address] [place], [address] Creatinine [Mass/Vol] 0.99 mg/dL Normal 0.70-1.20 [facility] Comment on above: Order Comment: Order Date: 02/10/25Order Info: [id number] - CMPOrder Info: [id number] - MG Performed By: #### L 500.4050, L501.5200, L100.0100 ####[facility] [address] [place], [address] GAP 14 Normal 5-15 [facility] Comment on above: Order Comment: Order Date: 02/10/25Order Info: [id number] - CMPOrder Info: [id number] - MG Performed By: #### L 500.4050, L501.5200, L100.0100 ####[facility] [address] [place], [address] GFR/1.73 sq M.predicted among non-blacks MDRD (S/P/Bld) [Vol rate/Area] 59 mL/min/{1.73_m2} Low >60 [facility] Comment on above: Order Comment: Order Date: 02/10/25Order Info: [id number] - CMPOrder Info: [id number] - MG Result Comment: mL/m in/1.73m2 CKD-EPI Creatinine Equation (2020) Performed By: #### L 500.4050, L501.5200, L100.0100 ####[facility] [address] [place], [address] Globulin (S) [Mass/Vol] 3.1 g/dL Normal 2.2-4.2 [facility] Comment on above: Order Comment: Order Date: 02/10/25Order Info: [id number] - CMPOrder Info: [id number] - MG Performed By: #### L 500.4050, L501.5200, L100.0100 ####[facility] [address] [place], [address] Glucose [Mass/Vol] 101 mg/dL High 70-99 [facility] Comment on above: Order Comment: Order Date: 02/10/25Order Info: [id number] - CMPOrder Info: [id number] - MG Performed By: #### L 500.4050, L501.5200, L100.0100 ####[facility] [address] [place], [address] Potassium [Moles/Vol] 4.4 mmol/L Normal 3.3-5.1 [facility] Comment on above: Order Comment: Order Date: 02/10/25Order Info: [id number]- - CMPOrder Info: [id number] - MG Performed By: #### L 500.4050, L501.5200, L100.0100 ####[facility] [address] [place], [address] Sodium [Moles/Vol] 140 mmol/L Normal 133-145 [facility] Comment on above: Order Comment: Order Date: 02/10/25Order Info: [id number]- - CMPOrder Info: [id number] - MG Performed By: #### L 500.4050, L501.5200, L100.0100 ####[facility] [address] [place], [address] T PROT 7.0 g/dL Normal 5.9-8.4 [facility] Comment on above: Order Comment: Order Date: 02/10/25Order Info: [id number] - CMPOrder Info: [id number] - MG Performed By: #### L 500.4050, L501.5200, L100.0100 ####[facility] [address] [place], [address] Urea nitrogen [Mass/Vol] 27 mg/dL High 4-19 [facility] Comment on above: Order Comment: Order Date: 02/10/25Order Info: [id number] - CMPOrder Info: [id number] - MG Performed By: #### L 500.4050, L501.5200, L100.0100 ####[facility] [address] [place], [address] Eosinophil percentageOrdered By: Kamar Grimes on 02-10-2025 Eosinophils/100 WBC (Bld) 2.4 % 0-5 [facility] Erythrocyte distribution wid th ratioOrdered By: Kamar Grimes on 02-10-2025 Erythrocyte distribution width (RBC) [Ratio] 13.6 % 11.6-14.6 [facility] Erythrocyte distribution wid th standard deviationOrdered By: Kamar Grimes on 02-10-2025 Erythrocyte distribution width (RBC) [Ratio] 45.9 fl High 35.1-43.9 [facility] Glomerular filtration rate ( GFR) estimation/1.73 sq m using serum, plasma, or whole bOrdered By: Kamar Grimes on 02-10-2025 GFR/1.73 sq M.predicted among non-blacks MDRD (S/P/Bld) [Vol rate/Area] 59 mL/min/{1.73_m2} Low >60 [facility] Comment on above: mL/min/1.73m2 CKD-EP I Creatinine Equation (2020) Hematocrit Auto (Bld) [Volum e fraction]Ordered By: Kamar Grimes on 02-10-2025 Hematocrit (Bld) [Volume fraction] 43.3 % 37-47 [facility] Hemoglobin measurementOrdere d By: Kamar Grimes on 02-10-2025 Hemoglobin (Bld) [Mass/Vol] 13.7 g/dL 12.0-15.0 [facility] Immature granulocytes/100 WB C Auto (Bld)Ordered By: Kamar Grimes on 02-10-2025 Immature granulocytes/100 WBC (Bld) 0.400 % 0.0-0.9 [facility] Comment on above: IG% - Immature Granu locytes (promyelocytes, myelocytes and metamyelocytes) > 1% indicates that a LEFT SHIFT is Present. Laboratory - Chemistry and C hemistry - challengeOrdered By: Kamar Grimes on 08-11-2025 AST [Catalytic activity/Vol] 36 U/L High <32 [facility] MCV (mean corpuscular volume ) determinationOrdered By: Kamar Grimes on 02-10-2025 MCV (RBC) [Entitic vol] 92.1 fL 81-99 [facility] Magnesiumon 02-10-2025 Magnesium [Mass/Vol] 1.7 mg/dL Normal 1.5-2.2 [facility] Comment on above: Order Comment: Order Date: 02/10/25Order Info: [id number] - CMPOrder Info: [id number] - MG Performed By: #### L 500.4050, L501.5200, L100.0100 ####[facility] [address] [place], [place], [id number] Magnesium measurement (mass/ volume)Ordered By: Kamar Grimes on 02-10-2025 Magnesium (Unsp spec) [Mass/Vol] 1.7 mg/dL 1.5-2.2 [facility] Mean corpuscular hemoglobin (MCH) determinationOrdered By: Kamar Grimes on 02-10-2025 MCH (RBC) [Entitic mass] 29.1 pg 27.0-32.0 [facility] Mean corpuscular hemoglobin concentration (MCHC) determinationOrdered By: Kamar Grimes on 02-10-2025 MCHC (RBC) [Mass/Vol] 31.6 g/dL Low 32-36 [facility] Mean platelet volume determi nationOrdered By: Kamar Grimes on 02-10-2025 Platelet mean volume (Bld) [Entitic vol] 10.8 fL 6.2-12.0 [facility] Monocyte percentageOrdered B y: Kamar Grimes on 02-10-2025 Monocytes/100 WBC (Bld) 7.3 % 0-10 [facility] Natriuretic peptide.B prohor mac N-Terminal [Mass/volume] in Serum or PlasmaOrdered By: Kamar Grimes on 02-10-2025 Natriuretic peptide.B prohormone N-Terminal [Mass/Vol] 1101 pg/mL <1800 [facility] Comment on above: Heart Failure Unlike ly: < 300 pg/mLHeart Failure Likely< 50 Years: > 450 pg/mL50-75 Years: > 900 pg/mL>75 Years: > 1800 pg/mL Neutrophil percentageOrdered By: Kamar Grimes on 02-10-2025 Neutrophils/100 WBC (Bld) 74.2 % High 47-70 [facility] No Panel InformationOrdered By: Kamar Grimes on 02-10-2025 36 U/L High <32 [facility] Nucleated red blood cell per centageOrdered By: Kamar Grimes on 02-10-2025 Nucleated RBC/100 WBC (Bld) [Ratio] 0 % 0-5 [facility] Platelet countOrdered By: Jennifer Grimes on 02-10-2025 Platelets (Bld) [#/Vol] 166 10*3/uL 150-450 [facility] Potassium measurement (mass/ volume)Ordered By: Kamar Grimes on 02-10-2025 Potassium (Unsp spec) [Mass/Vol] 4.4 mmol/L 3.3-5.1 [facility] Pro- Brain NATRIURETIC PEPTI Rita 02-10-2025 Natriuretic peptide B (Bld) [Mass/Vol] 1101 pg/mL Normal <=1800 [facility] Comment on above: Order Comment: Order Date: 02/10/25Order Info: [id number] - CMPOrder Info: [id number] - MG Result Comment: Hear t Failure Unlikely: < 300 pg/mLHeart Failure Likely< 50 Years: > 450 pg/mL50-75 Years: > 900 pg/mL>75 Years: > 1800 pg/mL Performed By: #### L 503.7505 ####[facility] [address] [place], [place], [id number] RBC Auto (Bld) [#/Vol]Ordere d By: Kamar Grimes on 02-10-2025 RBC (Bld) [#/Vol] 4.70 10*6/uL 4.2-5.4 [facility] Serum creatinine measurement (mass/volume)Ordered By: Kamar Grimes on 02-10-2025 Creatinine [Mass/Vol] 0.99 mg/dL 0.70-1.20 [facility] Serum globulin measurementOr dered By: Kamar Grimes on 02-10-2025 Globulin (S) [Mass/Vol] 3.1 g/dL 2.2-4.[address] [facility] Serum glucose measurement (m ass/volume)Ordered By: Kamar Grimes on 02-10-2025 Glucose [Mass/Vol] 101 mg/dL High 70-99 [facility] Serum or plasma alanine gao otransferase (ALT) measurementOrdered By: Kamar Grimes on 02-10-2025 ALT [Catalytic activity/Vol] 27 U/L <35 [facility] Serum or plasma albumin lisa urement (mass/volume)Ordered By: Kamar Grimes on 02-10-2025 Albumin [Mass/Vol] 3.9 g/dL 3.4-4.8 [facility] Serum or plasma albumin/glob ulin mass ratioOrdered By: Kamar Grimes on 02-10-2025 Albumin/Globulin [Mass ratio] 1.3 {ratio} 0.9-2.4 [facility] Serum or plasma alkaline bee sphatase measurementOrdered By: Kamar Grimes on 02-10-2025 ALP [Catalytic activity/Vol] 147 U/L High 35-104 [facility] Serum or plasma calcium lisa urement (mass/volume)Ordered By: Kaamr Grimes on 02-10-2025 Calcium [Mass/Vol] 9.8 mg/dL 7.6-11.0 [facility] Serum or plasma urea nitroge n measurement (mass/volume)Ordered By: Kamar Grimes on 02-10-2025 Urea nitrogen [Mass/Vol] 27 mg/dL High 4-19 [facility] Sodium levelOrdered By: Kamar Grimes on 02-10-2025 Sodium [Moles/Vol] 140 mmol/L 133-145 [facility] Total proteinOrdered By: Esmer Grimes on 02-10-2025 Protein [Mass/Vol] 7.0 g/dL 5.9-8.4 [facility] White blood cell (WBC) count Ordered By: Kamar Grimes on 02-10-2025 WBC (Bld) [#/Vol] 9.9 10*3/uL 4.4-11.0 [facility] Acid Fast Bacillus Cultureon 12-06-2024 tAFBC Normal [facility] Comment on above: Performed By: #### M 100.3000, M300.2000, M600.2200, M300.3000, M100.2000, M600.2000, M100.4001 ####[facility] [address] [place], [address] Acid Fast Bacillus Smear/Flu oron 11-06-2024 tafb Normal [facility] Comment on above: Performed By: #### M 100.3000, M300.2000, M600.2200, M300.3000, M100.2000, M600.2000, M100.4001 ####[facility] [address] [place], [address] Culture, Fungus 8482on 11-06 [facility] Comment on above: Performed By: #### M 100.3000, M300.2000, M600.2200, M300.3000, M100.2000, M600.2000, M100.4001 ####[facility] [address] [place], [address] Fungus Stain 8136on 11-07-19 25 FUNST Normal [facility] Comment on above: Performed By: #### M 100.3000, M300.2000, M600.2200, M300.3000, M100.2000, M600.2000, M100.4001 ####[facility] [address] [place], [address] Basic Metabolic Profile (BMP )on 10-31-2024 BUN Normal - [facility] Comment on above: Result Comment: Canc elled via OM: Order cancelled - Patient discharged Performed By: #### L 100.0100, L500.2500 ####[facility] [address] [place], [address] BUN/CRE Normal - [facility] Comment on above: Result Comment: Canc elled via OM: Order cancelled - Patient discharged Performed By: #### L 100.0100, L500.2500 ####[facility] [address] [place], [address] Calcium Normal 7.6-11.0 [facility] Comment on above: Result Comment: Canc elled via OM: Order cancelled - Patient discharged Performed By: #### L 100.0100, L500.2500 ####[facility] [address] [place], [address] CL Normal 98-108 [facility] Comment on above: Result Comment: Canc elled via OM: Order cancelled - Patient discharged Performed By: #### L 100.0100, L500.2500 ####[facility] [address] [place], [address] CO2 Normal 21.0-32.0 [facility] Comment on above: Result Comment: Canc elled via OM: Order cancelled - Patient discharged Performed By: #### L 100.0100, L500.2500 ####[facility] [address] [place], [address] CREAT,SERUM Normal 0.70-1.20 [facility] Comment on above: Result Comment: Canc elled via OM: Order cancelled - Patient discharged Performed By: #### L 100.0100, L500.2500 ####[facility] [address] [place], [address] eGFR Normal >60 [facility] Comment on above: Result Comment: Canc elled via OM: Order cancelled - Patient discharged Performed By: #### L 100.0100, L500.2500 ####[facility] [address] [place], [address] GAP Normal 5-15 [facility] Comment on above: Result Comment: Canc elled via OM: Order cancelled - Patient discharged Performed By: #### L 100.0100, L500.2500 ####[facility] [address] [place], [address] GLU Normal 70-99 [facility] Comment on above: Result Comment: Canc elled via OM: Order cancelled - Patient discharged Performed By: #### L 100.0100, L500.2500 ####[facility] [address] [place], [address] Potassium Normal 3.3-5.1 [facility] Comment on above: Result Comment: Canc elled via OM: Order cancelled - Patient discharged Performed By: #### L 100.0100, L500.2500 ####[facility] [address] [place], [address] Basic Metabolic Profile (BMP) Normal 133-145 [facility] Comment on above: Result Comment: Canc elled via OM: Order cancelled - Patient discharged Performed By: #### L 100.0100, L500.2500 ####[facility] [address] [place], [address] CBC W/Diff, Automatedon 05-0 Absolute Neut Normal 2.0-7.7 [facility] Comment on above: Result Comment: Canc elled via OM: Order cancelled - Patient discharged Performed By: #### L 100.0100, L500.2500 ####[facility] [address] [place], [address] HCT Normal 37-47 [facility] Comment on above: Result Comment: Canc elled via OM: Order cancelled - Patient discharged Performed By: #### L 100.0100, L500.2500 ####[facility] [address] [place], [address] HGB Normal 12.0-15.0 [facility] Comment on above: Result Comment: Canc elled via OM: Order cancelled - Patient discharged Performed By: #### L 100.0100, L500.2500 ####[facility] [address] [place], [address] MCH Normal 27.0-32.0 [facility] Comment on above: Result Comment: Canc elled via OM: Order cancelled - Patient discharged Performed By: #### L 100.0100, L500.2500 ####[facility] [address] [place], [address] MCHC Normal 32-36 [facility] Comment on above: Result Comment: Canc elled via OM: Order cancelled - Patient discharged Performed By: #### L 100.0100, L500.2500 ####[facility] [address] [place], [address] MCV Normal 81-99 [facility] Comment on above: Result Comment: Canc elled via OM: Order cancelled - Patient discharged Performed By: #### L 100.0100, L500.2500 ####[facility] [address] [place], [address] NEUT% Normal 47-70 [facility] Comment on above: Result Comment: Canc elled via OM: Order cancelled - Patient discharged Performed By: #### L 100.0100, L500.2500 ####[facility] [address] [place], [address] PLT Normal 150-450 [facility] Comment on above: Result Comment: Canc elled via OM: Order cancelled - Patient discharged Performed By: #### L 100.0100, L500.2500 ####[facility] [address] [place], [address] RBC Normal 4.2-5.4 [facility] Comment on above: Result Comment: Canc elled via OM: Order cancelled - Patient discharged Performed By: #### L 100.0100, L500.2500 ####[facility] [address] [place], [address] RDW CV Normal 11.6-14.6 [facility] Comment on above: Result Comment: Canc elled via OM: Order cancelled - Patient discharged Performed By: #### L 100.0100, L500.2500 ####[facility] [address] [place], [address] RDW SD Normal 35.1-43.9 [facility] Comment on above: Result Comment: Canc elled via OM: Order cancelled - Patient discharged Performed By: #### L 100.0100, L500.2500 ####[facility] [address] [place], [address] WBC Normal 4.4-11.0 [facility] Comment on above: Result Comment: Canc elled via OM: Order cancelled - Patient discharged Performed By: #### L 100.0100, L500.2500 ####[facility] [address] [place], [address] Acid Fast Bacillus Cultureon 10-30-2024 tAFBC [facility] Comment on above: Performed By: #### M 100.4001, M600.2000, M300.2000, M300.3000, M100.2000, M100.3000, M600.2200 ####[facility] [address] [place], [address] tAFBC [facility] Comment on above: Performed By: #### M 100.2000, M600.2200, M300.2000, M100.3000, M300.3000, M600.2000, M100.4001 ####[facility] [address] [place], [address] Acid Fast Bacillus Smear/Flu oron 10-30-2024 tafb [facility] Comment on above: Performed By: #### M 100.4001, M600.2000, M300.2000, M300.3000, M100.2000, M100.3000, M600.2200 ####[facility] [address] [place], [address] tafb [facility] Comment on above: Performed By: #### M 100.2000, M600.2200, M300.2000, M100.3000, M300.3000, M600.2000, M100.4001 ####[facility] [address] [place], [address] Culture, Fungus 8482on 10-30 [facility] Comment on above: Performed By: #### M 100.4001, M600.2000, M300.2000, M300.3000, M100.2000, M100.3000, M600.2200 ####[facility] [address] [place], [address] [facility] Comment on above: Performed By: #### M 100.2000, M600.2200, M300.2000, M100.3000, M300.3000, M600.2000, M100.4001 ####[facility] [address] [place], [address] Fungus Stain 8136on 10-31-19 25 [facility] Comment on above: Performed By: #### M 100.4001, M600.2000, M300.2000, M300.3000, M100.2000, M100.3000, M600.2200 ####[facility] [address] [place], [address] [facility] Comment on above: Performed By: #### M 100.2000, M600.2200, M300.2000, M100.3000, M300.3000, M600.2000, M100.4001 ####[facility] [address] [place], [address] Basic Metabolic Profile (BMP )on 10-24-2024 BUN Normal 4-19 [facility] Comment on above: Result Comment: Canc elled via OM: Order cancelled - Patient discharged Performed By: #### L 500.2500, L100.0100 ####[facility] [address] [place], [address] BUN/CRE Normal 10-20 [facility] Comment on above: Result Comment: Canc elled via OM: Order cancelled - Patient discharged Performed By: #### L 500.2500, L100.0100 ####[facility] [address] [place], [address] Calcium Normal 7.6-11.0 [facility] Comment on above: Result Comment: Canc elled via OM: Order cancelled - Patient discharged Performed By: #### L 500.2500, L100.0100 ####[facility] [address] [place], [address] CL Normal 98-108 [facility] Comment on above: Result Comment: Canc elled via OM: Order cancelled - Patient discharged Performed By: #### L 500.2500, L100.0100 ####[facility] [address] [place], [address] CO2 Normal 21.0-32.0 [facility] Comment on above: Result Comment: Canc elled via OM: Order cancelled - Patient discharged Performed By: #### L 500.2500, L100.0100 ####[facility] [address] [place], [address] CREAT,SERUM Normal 0.70-1.20 [facility] Comment on above: Result Comment: Canc elled via OM: Order cancelled - Patient discharged Performed By: #### L 500.2500, L100.0100 ####[facility] [address] [place], [address] eGFR Normal >60 [facility] Comment on above: Result Comment: Canc elled via OM: Order cancelled - Patient discharged Performed By: #### L 500.2500, L100.0100 ####[facility] [address] [place], [address] GAP Normal 5-15 [facility] Comment on above: Result Comment: Canc elled via OM: Order cancelled - Patient discharged Performed By: #### L 500.2500, L100.0100 ####[facility] [address] [place], [address] GLU Normal 70-99 [facility] Comment on above: Result Comment: Canc elled via OM: Order cancelled - Patient discharged Performed By: #### L 500.2500, L100.0100 ####[facility] [address] [place], [address] Potassium Normal 3.3-5.1 [facility] Comment on above: Result Comment: Canc elled via OM: Order cancelled - Patient discharged Performed By: #### L 500.2500, L100.0100 ####[facility] [address] [place], [address] Basic Metabolic Profile (BMP) Normal 133-145 [facility] Comment on above: Result Comment: Canc elled via OM: Order cancelled - Patient discharged Performed By: #### L 500.2500, L100.0100 ####[facility] [address] [place], [address] CBC W/Diff, Automatedon 04-2 Absolute Neut Normal 2.0-7.7 [facility] Comment on above: Result Comment: Canc elled via OM: Order cancelled - Patient discharged Performed By: #### L 500.2500, L100.0100 ####[facility] [address] [place], [address] HCT Normal 37-47 [facility] Comment on above: Result Comment: Canc elled via OM: Order cancelled - Patient discharged Performed By: #### L 500.2500, L100.0100 ####[facility] [address] [place], [address] HGB Normal 12.0-15.0 [facility] Comment on above: Result Comment: Canc elled via OM: Order cancelled - Patient discharged Performed By: #### L 500.2500, L100.0100 ####[facility] [address] [place], [address] MCH Normal 27.0-32.0 [facility] Comment on above: Result Comment: Canc elled via OM: Order cancelled - Patient discharged Performed By: #### L 500.2500, L100.0100 ####[facility] [address] [place], [address] MCHC Normal 32-36 [facility] Comment on above: Result Comment: Canc elled via OM: Order cancelled - Patient discharged Performed By: #### L 500.2500, L100.0100 ####[facility] [address] [place], [address] MCV Normal 81-99 [facility] Comment on above: Result Comment: Canc elled via OM: Order cancelled - Patient discharged Performed By: #### L 500.2500, L100.0100 ####[facility] [address] [place], [address] NEUT% Normal 47-70 [facility] Comment on above: Result Comment: Canc elled via OM: Order cancelled - Patient discharged Performed By: #### L 500.2500, L100.0100 ####[facility] [address] [place], [address] PLT Normal 150-450 [facility] Comment on above: Result Comment: Canc elled via OM: Order cancelled - Patient discharged Performed By: #### L 500.2500, L100.0100 ####[facility] [address] [place], [address] RBC Normal 4.2-5.4 [facility] Comment on above: Result Comment: Canc elled via OM: Order cancelled - Patient discharged Performed By: #### L 500.2500, L100.0100 ####[facility] [address] [place], [address] RDW CV Normal 11.6-14.6 [facility] Comment on above: Result Comment: Canc elled via OM: Order cancelled - Patient discharged Performed By: #### L 500.2500, L100.0100 ####[facility] [address] [place], [address] RDW SD Normal 35.1-43.9 [facility] Comment on above: Result Comment: Canc elled via OM: Order cancelled - Patient discharged Performed By: #### L 500.2500, L100.0100 ####[facility] [address] [place], [address] WBC Normal 4.4-11.0 [facility] Comment on above: Result Comment: Canc elled via OM: Order cancelled - Patient discharged Performed By: #### L 500.2500, L100.0100 ####[facility] [address] [place], [address] Basic Metabolic Profile (BMP )on 10-17-2024 BUN Normal 4-19 [facility] Comment on above: Result Comment: Canc elled via OM: Order cancelled - Patient discharged Performed By: #### L 500.2500, L100.0100 ####[facility] [address] [place], [address] BUN/CRE Normal 10-20 [facility] Comment on above: Result Comment: Canc elled via OM: Order cancelled - Patient discharged Performed By: #### L 500.2500, L100.0100 ####[facility] [address] [place], [address] Calcium Normal 7.6-11.0 [facility] Comment on above: Result Comment: Canc elled via OM: Order cancelled - Patient discharged Performed By: #### L 500.2500, L100.0100 ####[facility] [address] [place], [address] CL Normal 98-108 [facility] Comment on above: Result Comment: Canc elled via OM: Order cancelled - Patient discharged Performed By: #### L 500.2500, L100.0100 ####[facility] [address] [place], [address] CO2 Normal 21.0-32.0 [facility] Comment on above: Result Comment: Canc elled via OM: Order cancelled - Patient discharged Performed By: #### L 500.2500, L100.0100 ####[facility] [address] [place], [address] CREAT,SERUM Normal 0.70-1.20 [facility] Comment on above: Result Comment: Canc elled via OM: Order cancelled - Patient discharged Performed By: #### L 500.2500, L100.0100 ####[facility] [address] [place], [address] eGFR Normal >60 [facility] Comment on above: Result Comment: Canc elled via OM: Order cancelled - Patient discharged Performed By: #### L 500.2500, L100.0100 ####[facility] [address] [place], [address] GAP Normal 5-15 [facility] Comment on above: Result Comment: Canc elled via OM: Order cancelled - Patient discharged Performed By: #### L 500.2500, L100.0100 ####[facility] [address] [place], [address] GLU Normal 70-99 [facility] Comment on above: Result Comment: Canc elled via OM: Order cancelled - Patient discharged Performed By: #### L 500.2500, L100.0100 ####[facility] [address], [address] Potassium Normal 3.3-5.1 [facility] Comment on above: Result Comment: Canc elled via OM: Order cancelled - Patient discharged Performed By: #### L 500.2500, L100.0100 ####[facility] [address] [place], [address] Basic Metabolic Profile (BMP) Normal 133-145 [facility] Comment on above: Result Comment: Canc elled via OM: Order cancelled - Patient discharged Performed By: #### L 500.2500, L100.0100 ####[facility] [address] [place], [address] CBC W/Diff, Automatedon - Absolute Neut Normal 2.0-7.7 [facility] Comment on above: Result Comment: Canc elled via OM: Order cancelled - Patient discharged Performed By: #### L 500.2500, L100.0100 ####[facility] [address] [place], [address] HCT Normal 37-47 [facility] Comment on above: Result Comment: Canc elled via OM: Order cancelled - Patient discharged Performed By: #### L 500.2500, L100.0100 ####[facility] [address] [place], [address] HGB Normal 12.0-15.0 [facility] Comment on above: Result Comment: Canc elled via OM: Order cancelled - Patient discharged Performed By: #### L 500.2500, L100.0100 ####[facility] [address] [place], [address] MCH Normal 27.0-32.0 [facility] Comment on above: Result Comment: Canc elled via OM: Order cancelled - Patient discharged Performed By: #### L 500.2500, L100.0100 ####[facility] [address] [place], [address] MCHC Normal 32-36 [facility] Comment on above: Result Comment: Canc elled via OM: Order cancelled - Patient discharged Performed By: #### L 500.2500, L100.0100 ####[facility] [address] [place], [address] MCV Normal 81-99 [facility] Comment on above: Result Comment: Canc elled via OM: Order cancelled - Patient discharged Performed By: #### L 500.2500, L100.0100 ####[facility] [address] [place], [address] NEUT% Normal 47-70 [facility] Comment on above: Result Comment: Canc elled via OM: Order cancelled - Patient discharged Performed By: #### L 500.2500, L100.0100 ####[facility] [address] [place], [address] PLT Normal 150-450 [facility] Comment on above: Result Comment: Canc elled via OM: Order cancelled - Patient discharged Performed By: #### L 500.2500, L100.0100 ####[facility] [address] [place], [address] RBC Normal 4.2-5.4 [facility] Comment on above: Result Comment: Canc elled via OM: Order cancelled - Patient discharged Performed By: #### L 500.2500, L100.0100 ####[facility] [address] [place], [address] RDW CV Normal 11.6-14.6 [facility] Comment on above: Result Comment: Canc elled via OM: Order cancelled - Patient discharged Performed By: #### L 500.2500, L100.0100 ####[facility] [address] [place], [address] RDW SD Normal 35.1-43.9 [facility] Comment on above: Result Comment: Canc elled via OM: Order cancelled - Patient discharged Performed By: #### L 500.2500, L100.0100 ####[facility] [address] [place], [address] WBC Normal 4.4-11.0 [facility] Comment on above: Result Comment: Canc elled via OM: Order cancelled - Patient discharged Performed By: #### L 500.2500, L100.0100 ####[facility] [address] [place], [address] Synovial Fluid RBC, WBC AND Diffon 10-14-2024 PATH COM/SYFL Reviewed Normal [facility] Comment on above: Result Comment: SEE REPORT IN PATIENT'S EMR AMENDED REPORT 10/14/24 1405 PATH COM/SYFL previously reported as: May follow Performed By: #### M 100.4001, M100.2900, M100.2000, M300.3000, L200.0400, M600.2000, M300.2000 ####[facility] [address] [place], [address] Basic Metabolic Profile (BMP )on 10-10-2024 BUN Normal 4-19 [facility] Comment on above: Result Comment: Canc elled via OM: Order cancelled - Patient discharged Performed By: #### L 100.0100, L500.2500 ####[facility] [address] [place], [address] BUN/CRE Normal 10-20 [facility] Comment on above: Result Comment: Canc elled via OM: Order cancelled - Patient discharged Performed By: #### L 100.0100, L500.2500 ####[facility] [address] [place], [address] Calcium Normal 7.6-11.0 [facility] Comment on above: Result Comment: Canc elled via OM: Order cancelled - Patient discharged Performed By: #### L 100.0100, L500.2500 ####[facility] [address] [place], [address] CL Normal 98-108 [facility] Comment on above: Result Comment: Canc elled via OM: Order cancelled - Patient discharged Performed By: #### L 100.0100, L500.2500 ####[facility] [address] [place], [address] CO2 Normal 21.0-32.0 [facility] Comment on above: Result Comment: Canc elled via OM: Order cancelled - Patient discharged Performed By: #### L 100.0100, L500.2500 ####[facility] [address] [place], [address] CREAT,SERUM Normal 0.70-1.20 [facility] Comment on above: Result Comment: Canc elled via OM: Order cancelled - Patient discharged Performed By: #### L 100.0100, L500.2500 ####[facility] [address] [place], [address] eGFR Normal >60 [facility] Comment on above: Result Comment: Canc elled via OM: Order cancelled - Patient discharged Performed By: #### L 100.0100, L500.2500 ####[facility] [address] [place], [address] GAP Normal 5-15 [facility] Comment on above: Result Comment: Canc elled via OM: Order cancelled - Patient discharged Performed By: #### L 100.0100, L500.2500 ####[facility] [address] [place], [address] GLU Normal 70-99 [facility] Comment on above: Result Comment: Canc elled via OM: Order cancelled - Patient discharged Performed By: #### L 100.0100, L500.2500 ####[facility] [address] [place], [address] Potassium Normal 3.3-5.1 [facility] Comment on above: Result Comment: Canc elled via OM: Order cancelled - Patient discharged Performed By: #### L 100.0100, L500.2500 ####[facility] [address] [place], [address] Basic Metabolic Profile (BMP) Normal 133-145 [facility] Comment on above: Result Comment: Canc elled via OM: Order cancelled - Patient discharged Performed By: #### L 100.0100, L500.2500 ####[facility] [address] [place], [address] CBC W/Diff, Automatedon 10-01-2024 Absolute Neut Normal 2.0-7.7 [facility] Comment on above: Result Comment: Canc elled via OM: Order cancelled - Patient discharged Performed By: #### L 100.0100, L500.2500 ####[facility] [address] [place], [address] HCT Normal 37-47 [facility] Comment on above: Result Comment: Canc elled via OM: Order cancelled - Patient discharged Performed By: #### L 100.0100, L500.2500 ####[facility] [address] [place], [address] HGB Normal 12.0-15.0 [facility] Comment on above: Result Comment: Canc elled via OM: Order cancelled - Patient discharged Performed By: #### L 100.0100, L500.2500 ####[facility] [address] [place], [address] MCH Normal 27.0-32.0 [facility] Comment on above: Result Comment: Canc elled via OM: Order cancelled - Patient discharged Performed By: #### L 100.0100, L500.2500 ####[facility] [address] [place], [address] MCHC Normal 32-36 [facility] Comment on above: Result Comment: Canc elled via OM: Order cancelled - Patient discharged Performed By: #### L 100.0100, L500.2500 ####[facility] [address] [place], [address] MCV Normal 81-99 [facility] Comment on above: Result Comment: Canc elled via OM: Order cancelled - Patient discharged Performed By: #### L 100.0100, L500.2500 ####[facility] [address] [place], [address] NEUT% Normal 47-70 [facility] Comment on above: Result Comment: Canc elled via OM: Order cancelled - Patient discharged Performed By: #### L 100.0100, L500.2500 ####[facility] [address] [place], [address] PLT Normal 150-450 [facility] Comment on above: Result Comment: Canc elled via OM: Order cancelled - Patient discharged Performed By: #### L 100.0100, L500.2500 ####[facility] [address] [place], [address] RBC Normal 4.2-5.4 [facility] Comment on above: Result Comment: Canc elled via OM: Order cancelled - Patient discharged Performed By: #### L 100.0100, L500.2500 ####[facility] [address] [place], [address] RDW CV Normal 11.6-14.6 [facility] Comment on above: Result Comment: Canc elled via OM: Order cancelled - Patient discharged Performed By: #### L 100.0100, L500.2500 ####[facility] [address] [place], [address] RDW SD Normal 35.1-43.9 [facility] Comment on above: Result Comment: Canc elled via OM: Order cancelled - Patient discharged Performed By: #### L 100.0100, L500.2500 ####[facility] [address] [place], [address] WBC Normal 4.4-11.0 [facility] Comment on above: Result Comment: Canc elled via OM: Order cancelled - Patient discharged Performed By: #### L 100.0100, L500.2500 ####[facility] [address] [place], [address] Vancomycin trough [Mass/Vol] Ordered By: Sixto Andrade on 10-06-2024 Vancomycin Level Trough 13.6 ug/mL 5.0-15.[address] [facility] Comment on above: Recommended goal tro [...] therapy recommended for serious lifethreatening infections include:- Pubjskwwro-Kjimymyomzss-Sqznlkmwx (Ventilator/[employer])-Sepsis PLEASE CONTACT PHARMACY SERVICES (#[id number]) FOR INTERPRETATIONOF RESULTS. Vancomycin, Trough Levelon 0 10-06-2024 VANCO, TROUGH 13.6 ug/mL Normal 5.0-15.0 [facility] Comment on above: Order Comment: Comme nts: DRAW 30 MIN PRIOR TO [id number] Result Comment: Zackery mmended goal trough ranges [...] therapy recommended for serious lifethreatening infections include:- Fgonzzzfqg-Hwsuhxonjtrp-Ppemvjeyq (Ventilator/He[employer] Associated)-SepsisPLEASE CONTACT PHARMACY SERVICES (#[id number]) FOR INTERPRETATIONOF RESULTS. Performed By: #### L 501.8820 ####[facility] [address], [address] Absolute neutrophil countOrd ered By: Rodrigo Sanches on 10-03-2024 Neutrophils (Bld) [#/Vol] 3.0 10*3/uL 2.0-7.7 [facility] Anion gap in Serum or Plasma Ordered By: Rodrigo Sanches on 10-03-2024 Anion gap [Moles/Vol] 11 mmol/L - [facility] BUN/creatinine ratioOrdered By: Rodrigo Sanches on 10-03-2024 Urea nitrogen/Creatinine [Mass ratio] 24.6 mg/mg High - [facility] Basic Metabolic Profile (BMP )on 10-03-2024 BUN/CRE 24.6 RATIO High - [facility] Comment on above: Performed By: #### L 500.2500, L100.0100 ####[facility] [address] [place], [address] Calcium [Mass/Vol] 9.2 mg/dL Normal 7.6-11.0 [facility] Comment on above: Performed By: #### L 500.2500, L100.0100 ####[facility] [address] [place], [address] Chloride [Moles/Vol] 100 mmol/L Normal 98-108 [facility] Comment on above: Performed By: #### L 500.2500, L100.0100 ####[facility] [address] [place], [address] CO2 [Moles/Vol] 27.3 mmol/L Normal 21.0-32.0 [facility] Comment on above: Performed By: #### L 500.2500, L100.0100 ####[facility] [address] [place], [address] Creatinine [Mass/Vol] 1.09 mg/dL Normal 0.70-1.20 [facility] Comment on above: Performed By: #### L 500.2500, L100.0100 ####[facility] [address] [place], [address] ECRCL 56.04 ml/min Normal 50-250 [facility] Comment on above: Performed By: #### L 500.2500, L100.0100 ####[facility] [address] [place], [address] GAP 11 Normal 5-15 [facility] Comment on above: Performed By: #### L 500.2500, L100.0100 ####[facility] [address] [place], [address] GFR/1.73 sq M.predicted among non-blacks MDRD (S/P/Bld) [Vol rate/Area] 53 mL/min/{1.73_m2} Low >60 [facility] Comment on above: Result Comment: mL/m in/1.73m2 CKD-EPI Creatinine Equation (2020) Performed By: #### L 500.2500, L100.0100 ####[facility] [address] [place], [address] Glucose [Mass/Vol] 96 mg/dL Normal 70-99 [facility] Comment on above: Performed By: #### L 500.2500, L100.0100 ####[facility] [address] [place], [address] Potassium [Moles/Vol] 4.4 mmol/L Normal 3.3-5.1 [facility] Comment on above: Performed By: #### L 500.2500, L100.0100 ####[facility] [address] [place], [address] Sodium [Moles/Vol] 139 mmol/L Normal 133-145 [facility] Comment on above: Performed By: #### L 500.2500, L100.0100 ####[facility] [address] [place], [address] Urea nitrogen [Mass/Vol] 27 mg/dL High 4-19 [facility] Comment on above: Performed By: #### L 500.2500, L100.0100 ####[facility] [address] [place], [address] Basophil percentageOrdered B y: Rodrigo Sanches on 10-03-2024 Basophils/100 WBC (Bld) 0.8 % 0-1 [facility] CBC W/Diff, Automatedon Absolute Lymph 1.20 X10 3/uL Normal 0.83-4.51 [facility] Comment on above: Performed By: #### L 500.2500, L100.0100 ####[facility] [address] [place], [address] Absolute Neut 3.0 X10 3/uL Normal 2.0-7.7 [facility] Comment on above: Performed By: #### L 500.2500, L100.0100 ####[facility] [address] [place], [address] Basophils/100 WBC (Bld) 0.8 % Normal 0-1 [facility] Comment on above: Performed By: #### L 500.2500, L100.0100 ####[facility] [address] [place], [address] Eosinophils/100 WBC (Bld) 5.5 % High 0-5 [facility] Comment on above: Performed By: #### L 500.2500, L100.0100 ####[facility] [address] [place], [address] Erythrocyte distribution width (RBC) [Ratio] 15.0 % High 11.6-14.6 [facility] Comment on above: Performed By: #### L 500.2500, L100.0100 ####[facility] [address] [place], [address] Hematocrit (Bld) [Volume fraction] 37.3 % Normal 37-47 [facility] Comment on above: Performed By: #### L 500.2500, L100.0100 ####[facility] [address] [place], [address] Hemoglobin (Bld) [Mass/Vol] 11.9 g/dL Low 12.0-15.0 [facility] Comment on above: Performed By: #### L 500.2500, L100.0100 ####[facility] [address] [place], [address] IG% 0.600 Normal 0.0-0.9 [facility] Comment on above: Result Comment: IG% - Immature Granulocytes (promyelocytes, myelocytes andmetamyelocytes) > 1% indicates that a LEFT SHIFT is Present. Performed By: #### L 500.2500, L100.0100 ####[facility] [address] [place], [address] Lymphocytes/100 WBC (Bld) 22.7 % Normal 19-41 [facility] Comment on above: Performed By: #### L 500.2500, L100.0100 ####[facility] [address] [place], [address] MCH (RBC) [Entitic mass] 29.2 pg Normal 27.0-32.0 [facility] Comment on above: Performed By: #### L 500.2500, L100.0100 ####[facility] [address] [place], [address] MCHC (RBC) [Mass/Vol] 31.9 g/dL Low 32-36 [facility] Comment on above: Performed By: #### L 500.2500, L100.0100 ####[facility] [address] [place], [address] MCV (RBC) [Entitic vol] 91.6 fL Normal 81-99 [facility] Comment on above: Performed By: #### L 500.2500, L100.0100 ####[facility] [address] [place], [address] Monocytes/100 WBC (Bld) 13.4 % High 0-10 [facility] Comment on above: Performed By: #### L 500.2500, L100.0100 ####[facility] [address] [place], [address] Neutrophils/100 WBC (Bld) 57.0 % Normal 47-70 [facility] Comment on above: Performed By: #### L 500.2500, L100.0100 ####[facility] [address] [place], [address] Nucleated RBC (Bld) [#/Vol] 0 10*3/uL Normal 0-5 [facility] Comment on above: Performed By: #### L 500.2500, L100.0100 ####[facility] [address] [place], [address] Platelet mean volume (Bld) [Entitic vol] 10.3 fL Normal 6.2-12.0 [facility] Comment on above: Performed By: #### L 500.2500, L100.0100 ####[facility] [address] [place], [address] Platelets (Bld) [#/Vol] 247 10*3/uL Normal 150-450 [facility] Comment on above: Performed By: #### L 500.2500, L100.0100 ####[facility] [address] [place], [address] RBC (Bld) [#/Vol] 4.07 10*6/uL Low 4.2-5.4 [facility] Comment on above: Performed By: #### L 500.2500, L100.0100 ####[facility] [address] [place], [address] RDW SD 50.2 fl High 35.1-43.9 [facility] Comment on above: Performed By: #### L 500.2500, L100.0100 ####[facility] [address] [place], [address] WBC (Bld) [#/Vol] 5.3 10*3/uL Normal 4.4-11.0 [facility] Comment on above: Performed By: #### L 500.2500, L100.0100 ####[facility] [address] [place], [address] Carbon dioxide, total [Moles /volume] in Central venous bloodOrdered By: Rodrigo Sanches on 10-03-2024 CO2 [Moles/Vol] 27.3 mmol/L 21.0-32.0 [facility] Chloride assayOrdered By: Neftaly Sanches on 10-03-2024 Chloride [Moles/Vol] 100 mmol/L 98-108 [facility] Eosinophil percentageOrdered By: Rodrigo Sanches 10-03-2024 Eosinophils/100 WBC (Bld) 5.5 % High 0-5 [facility] Erythrocyte distribution wid th (RBC) [Ratio]Ordered By: Rodrigo Sanches on 10-03-2024 Erythrocyte distribution width (RBC) [Entitic vol] 50.2 fL High 35.1-43.9 [facility] Erythrocyte distribution wid th ratioOrdered By: Rodrigo Sanches on 10-03-2024 Erythrocyte distribution width (RBC) [Ratio] 15.0 % High 11.6-14.6 [facility] Estimation of creatinine darrell aranceOrdered By: Rodrigo Sanches on 10-03-2024 Estimated Creatinine Clearance Calc 56.04 ml/min 50-250 [facility] GFR/1.73 sq M.predicted hans g non-blacks MDRD (S/P/Bld) [Vol rate/Area]Ordered By: Rodrigo Sanches on 10-03-2024 Estimated GFR (MDRD) Non-Af Amer 53 Low >60 [facility] Comment on above: mL/min/1.73m2 CKD-EP I Creatinine Equation (2020) Hematocrit Auto (Bld) [Volum e fraction]Ordered By: Rodrigo Sanches on 10-03-2024 Hematocrit (Bld) [Volume fraction] 37.3 % 37-47 [facility] Hemoglobin measurementOrdere d By: Rodrigo Sanches on 10-03-2024 Hemoglobin (Bld) [Mass/Vol] 11.9 g/dL Low 12.0-15.0 [facility] Immature granulocytes/100 WB C Auto (Bld)Ordered By: Rodrigo Sanches on 10-03-2024 Immature granulocytes/100 WBC (Bld) 0.600 % 0.0-0.9 [facility] Comment on above: IG% - Immature Granu locytes (promyelocytes, myelocytes and metamyelocytes) > 1% indicates that a LEFT SHIFT is Present. Lymphocytes Auto (Unsp spec) [#/Vol]Ordered By: Rodrigo Sanches on 10-03-2024 Lymphocytes (Bld) [#/Vol] 1.20 10*3/uL 0.83-4.51 [facility] Lymphocytes/100 WBC Auto (Un sp spec)Ordered By: Rodrigo Sanches 10-03-2024 Lymphocytes/100 WBC (Bld) 22.7 % 19-41 [facility] MCV (mean corpuscular volume ) determinationOrdered By: Rodrigo Sanches on 10-03-2024 MCV (RBC) [Entitic vol] 91.6 fL 81-99 [facility] Mean corpuscular hemoglobin (MCH) determinationOrdered By: Rodrigo Sanches 10-03-2024 MCH (RBC) [Entitic mass] 29.2 pg 27.0-32.0 [facility] Mean corpuscular hemoglobin concentration (MCHC) determinationOrdered By: Rodrigo Sanches 10-03-2024 MCHC (RBC) [Mass/Vol] 31.9 g/dL Low 32-36 [facility] Mean platelet volume determi nationOrdered By: Rodrigo Sanches on 10-03-2024 Platelet mean volume (Bld) [Entitic vol] 10.3 fL 6.2-12.0 [facility] Monocyte percentageOrdered B y: Rodrigo Sanches on 10-03-2024 Monocytes/100 WBC (Bld) 13.4 % High 0-10 [facility] Neutrophil percentageOrdered By: Rodrigo Sanches on 10-03-2024 Neutrophils/100 WBC (Bld) 57.0 % 47-70 [facility] Nucleated red blood cell per centageOrdered By: Rodrigo Sanches on 10-03-2024 Nucleated RBC/100 WBC (Bld) [Ratio] 0 % 0-5 [facility] Platelet countOrdered By: Neftaly Sanches on 10-03-2024 Platelets (Bld) [#/Vol] 247 10*3/uL 150-450 [facility] Potassium (Unsp spec) [Mass/ Vol]Ordered By: Rodrigo Sanches on 10-03-2024 Potassium [Moles/Vol] 4.4 mmol/L 3.3-5.1 [facility] RBC Auto (Bld) [#/Vol]Ordere d By: Rodrigo Sanches on 10-03-2024 RBC (Bld) [#/Vol] 4.07 10*6/uL Low 4.2-5.4 [facility] Serum creatinine measurement (mass/volume)Ordered By: Rodrigo Sanches on 10-03-2024 Creatinine [Mass/Vol] 1.09 mg/dL 0.70-1.20 [facility] Serum glucose measurement (m ass/volume)Ordered By: Rodrigo Sanches on 10-03-2024 Glucose [Mass/Vol] 96 mg/dL 70-99 [facility] Serum or plasma calcium lisa urement (mass/volume)Ordered By: Rodrigo Sanches on 10-03-2024 Calcium [Mass/Vol] 9.2 mg/dL 7.6-11.0 [facility] Serum or plasma urea nitroge n measurement (mass/volume)Ordered By: Rodrigo Sanches on 10-03-2024 Urea nitrogen [Mass/Vol] 27 mg/dL High 4-19 [facility] Sodium levelOrdered By: Rodrigo Sanches on 10-03-2024 Sodium [Moles/Vol] 139 mmol/L 133-145 [facility] White blood cell (WBC) count Ordered By: Rodrigo Sanches on 10-03-2024 WBC (Bld) [#/Vol] 5.3 10*3/uL 4.4-11.0 [facility] Vancomycin, Trough Levelon 0 10-01-2024 VANCO, TROUGH 13.2 ug/mL Normal 5.0-15.0 [facility] Comment on above: Order Comment: Comme nts: Trough to be drawn 30 mins prior to scheduled [id number] Result Comment: Zackery mmended goal trough ranges [...] therapy recommended for serious lifethreatening infections include:- Zujphqwadn-Eoryjwyegvxm-Nonwscgqt (Ventilator/[employer])-SepsisPLEASE CONTACT PHARMACY SERVICES (#[id number]) FOR INTERPRETATIONOF RESULTS. Performed By: #### L 501.8820 ####[facility] [address] [place], [address] Vancomycin, Trough Levelon 0 09-29-2024 VANCO, TROUGH 15.6 ug/mL High 5.0-15.0 [facility] Comment on above: Order Comment: Comme nts: DRAW 30 MIN PRIOR TO [id number] Result Comment: Zackery mmended goal trough ranges [...] therapy recommended for serious lifethreatening infections include:- Jumrchpdhs-Pgpphnwxgsqr-Ztzumpayv (Ventilator/Healtcare Associated)-SepsisPLEASE CONTACT PHARMACY SERVICES (#0599) FOR INTERPRETATIONOF RESULTS. Performed By: #### L 501.8820 ####[facility] [address] [place], [address] Basic Metabolic Profile (BMP )on 09-26-2024 BUN/CRE 25.8 RATIO High 10-20 [facility] Comment on above: Performed By: #### L 100.0100, L500.2500 ####[facility] [address] [place], [address] Calcium [Mass/Vol] 9.5 mg/dL Normal 7.6-11.0 [facility] Comment on above: Performed By: #### L 100.0100, L500.2500 ####[facility] [address] [place], [address] Chloride [Moles/Vol] 100 mmol/L Normal 98-108 [facility] Comment on above: Performed By: #### L 100.0100, L500.2500 ####[facility] [address] [place], [address] CO2 [Moles/Vol] 27.3 mmol/L Normal 21.0-32.0 [facility] Comment on above: Performed By: #### L 100.0100, L500.2500 ####[facility] [address] [place], [address] Creatinine [Mass/Vol] 1.13 mg/dL Normal 0.70-1.20 [facility] Comment on above: Performed By: #### L 100.0100, L500.2500 ####[facility] [address] [place], [address] ECRCL 54.32 ml/min Normal 50-250 [facility] Comment on above: Performed By: #### L 100.0100, L500.2500 ####[facility] [address] [place], [address] GAP 12 Normal 5-15 [facility] Comment on above: Performed By: #### L 100.0100, L500.2500 ####[facility] [address] [place], [address] GFR/1.73 sq M.predicted among non-blacks MDRD (S/P/Bld) [Vol rate/Area] 51 mL/min/{1.73_m2} Low >60 [facility] Comment on above: Result Comment: mL/m in/1.73m2 CKD-EPI Creatinine Equation (2020) Performed By: #### L 100.0100, L500.2500 ####[facility] [address] [place], [address] Glucose [Mass/Vol] 100 mg/dL High 70-99 [facility] Comment on above: Performed By: #### L 100.0100, L500.2500 ####[facility] [address] [place], [address] Potassium [Moles/Vol] 5.0 mmol/L Normal 3.3-5.1 [facility] Comment on above: Performed By: #### L 100.0100, L500.2500 ####[facility] [address] [place], [address] Sodium [Moles/Vol] 139 mmol/L Normal 133-145 [facility] Comment on above: Performed By: #### L 100.0100, L500.2500 ####[facility] [address] [place], [address] Urea nitrogen [Mass/Vol] 29 mg/dL High 4-19 [facility] Comment on above: Performed By: #### L 100.0100, L500.2500 ####[facility] [address] [place], [address] CBC W/Diff, Automatedon 03- Absolute Lymph 1.52 X10 3/uL Normal 0.83-4.51 [facility] Comment on above: Performed By: #### L 100.0100, L500.2500 ####[facility] [address] [place], [address] Absolute Neut 5.2 X10 3/uL Normal 2.0-7.7 [facility] Comment on above: Performed By: #### L 100.0100, L500.2500 ####[facility] [address] [place], [address] Basophils/100 WBC (Bld) 1.0 % Normal 0-1 [facility] Comment on above: Performed By: #### L 100.0100, L500.2500 ####[facility] [address] [place], [address] Eosinophils/100 WBC (Bld) 3.9 % Normal 0-5 [facility] Comment on above: Performed By: #### L 100.0100, L500.2500 ####[facility] [address] [place], [address] Erythrocyte distribution width (RBC) [Ratio] 14.6 % Normal 11.6-14.6 [facility] Comment on above: Performed By: #### L 100.0100, L500.2500 ####[facility] [address] [place], [address] Hematocrit (Bld) [Volume fraction] 37.0 % Normal 37-47 [facility] Comment on above: Performed By: #### L 100.0100, L500.2500 ####[facility] [address] [place], [address] Hemoglobin (Bld) [Mass/Vol] 12.1 g/dL Normal 12.0-15.0 [facility] Comment on above: Performed By: #### L 100.0100, L500.2500 ####[facility] [address] [place], [address] IG% 0.800 Normal 0.0-0.9 [facility] Comment on above: Result Comment: IG% - Immature Granulocytes (promyelocytes, myelocytes andmetamyelocytes) > 1% indicates that a LEFT SHIFT is Present. Performed By: #### L 100.0100, L500.2500 ####[facility] [address] [place], [address] Lymphocytes/100 WBC (Bld) 19.3 % Normal 19-41 [facility] Comment on above: Performed By: #### L 100.0100, L500.2500 ####[facility] [address] [place], [address] MCH (RBC) [Entitic mass] 29.7 pg Normal 27.0-32.0 [facility] Comment on above: Performed By: #### L 100.0100, L500.2500 ####[facility] [address] [place], [address] MCHC (RBC) [Mass/Vol] 32.7 g/dL Normal 32-36 [facility] Comment on above: Performed By: #### L 100.0100, L500.2500 ####[facility] [address] [place], [address] MCV (RBC) [Entitic vol] 90.9 fL Normal 81-[address] [facility] Comment on above: Performed By: #### L 100.0100, L500.2500 ####[facility] [address] [place], [address] Monocytes/100 WBC (Bld) 8.5 % Normal 0-10 [facility] Comment on above: Performed By: #### L 100.0100, L500.2500 ####[facility] [address] [place], [address] Neutrophils/100 WBC (Bld) 66.5 % Normal 47-70 [facility] Comment on above: Performed By: #### L 100.0100, L500.2500 ####[facility] [address] [place], [address] Nucleated RBC (Bld) [#/Vol] 0 10*3/uL Normal 0-5 [facility] Comment on above: Performed By: #### L 100.0100, L500.2500 ####[facility] [address] [place], [address] Platelet mean volume (Bld) [Entitic vol] 10.2 fL Normal 6.2-12.0 [facility] Comment on above: Performed By: #### L 100.0100, L500.2500 ####[facility] [address] [place], [address] Platelets (Bld) [#/Vol] 390 10*3/uL Normal 150-450 [facility] Comment on above: Performed By: #### L 100.0100, L500.2500 ####[facility] [address] [place], [address] RBC (Bld) [#/Vol] 4.07 10*6/uL Low 4.2-5.4 [facility] Comment on above: Performed By: #### L 100.0100, L500.2500 ####[facility] [address] [place], [address] RDW SD 47.8 fl High 35.1-43.9 [facility] Comment on above: Performed By: #### L 100.0100, L500.2500 ####[facility] [address] [place], [address] WBC (Bld) [#/Vol] 7.9 10*3/uL Normal 4.4-11.0 [facility] Comment on above: Performed By: #### L 100.0100, L500.2500 ####[facility] [address] [place], [place], [address] Vancomycin, Trough Levelon 0 09-24-2024 VANCO, TROUGH 13.3 ug/mL Normal 5.0-15.0 [facility] Comment on above: Order Comment: Comme nts: Trough to be drawn 30 mins prior to scheduled [id number] Result Comment: Zackery mmended goal trough ranges [...] therapy recommended for serious lifethreatening infections include:- Imsobzgfiq-Chajdbynqnzz-Gneysutof (Ventilator/Healtcare Associated)-SepsisPLEASE CONTACT PHARMACY SERVICES (#9094) FOR INTERPRETATIONOF RESULTS. Performed By: #### L 501.8820 ####[facility] [address] [facility] [place], [place], [address] Vancomycin, Trough Levelon 0 09-22-2024 VANCO, TROUGH 12.4 ug/mL Normal 5.0-15.0 [facility] Comment on above: Order Comment: [...] therapy recommended for serious lifethreatening infections include:- Aalimthakk-Cariaolcsoxe-Xxwfqazxy (Ventilator/Healtcare Associated)-SepsisPLEASE CONTACT PHARMACY SERVICES (#3730) FOR INTERPRETATIONOF RESULTS. Performed By: #### L 501.8820 ####[facility] [address] [place], [address] Bilirubin, totalOrdered By: Rodrigo Sanches on 09-21-2024 Bilirubin [Mass/Vol] 0.22 mg/dL 0.00-1.30 [facility] Comprehensive Metabolic Prof ilon 09-21-2024 Albumin [Mass/Vol] 3.2 g/dL Low 3.4-4.8 [facility] Comment on above: Performed By: #### L 500.4050 ####[facility] [address] [place], [address] Albumin/Globulin [Mass ratio] 0.9 {ratio} Normal 0.9-2.4 [facility] Comment on above: Performed By: #### L 500.4050 ####[facility] [address] [place], [address] ALK PHOS 120 U/L High 35-104 [facility] Comment on above: Performed By: #### L 500.4050 ####[facility] [address] [place], [address] ALT [Catalytic activity/Vol] 15 U/L Normal <=34 [facility] Comment on above: Performed By: #### L 500.4050 ####[facility] [address] [place], [address] AST [Catalytic activity/Vol] 23 U/L Normal <=31 [facility] Comment on above: Performed By: #### L 500.4050 ####[facility] [address] [place], [address] Bilirubin [Mass/Vol] 0.22 mg/dL Normal 0.00-1.30 [facility] Comment on above: Performed By: #### L 500.4050 ####[facility] [address] [place], [address] BUN/CRE 21.1 RATIO High 10-20 [facility] Comment on above: Performed By: #### L 500.4050 ####[facility] [address] [place], [address] Calcium [Mass/Vol] 9.2 mg/dL Normal 7.6-11.0 [facility] Comment on above: Performed By: #### L 500.4050 ####[facility] [address] [place], [address] Chloride [Moles/Vol] 99 mmol/L Normal 98-108 [facility] Comment on above: Performed By: #### L 500.4050 ####[facility] [address] [place], [address] CO2 [Moles/Vol] 27.1 mmol/L Normal 21.0-32.0 [facility] Comment on above: Performed By: #### L 500.4050 ####[facility] [address] [place], [address] ECRCL 51.50 ml/min Normal 50-250 [facility] Comment on above: Performed By: #### L 500.4050 ####[facility] [address] [place], [address] GAP 12 Normal 5-15 [facility] Comment on above: Performed By: #### L 500.4050 ####[facility] [address] [place], [address] GFR/1.73 sq M.predicted among non-blacks MDRD (S/P/Bld) [Vol rate/Area] 48 mL/min/{1.73_m2} Low >60 [facility] Comment on above: Result Comment: mL/m in/1.73m2 CKD-EPI Creatinine Equation (2020) Performed By: #### L 500.4050 ####[facility] [address] [place], [address] Globulin (S) [Mass/Vol] 3.5 g/dL Normal 2.2-4.[address] [facility] Comment on above: Performed By: #### L 500.4050 ####[facility] [address] [place], [address] Potassium [Moles/Vol] 4.6 mmol/L Normal 3.3-5.1 [facility] Comment on above: Performed By: #### L 500.4050 ####[facility] [address] [place], [address] Sodium [Moles/Vol] 138 mmol/L Normal 133-145 [facility] Comment on above: Performed By: #### L 500.4050 ####[facility] [address] [place], [address] T PROT 6.7 g/dL Normal 5.9-8.4 [facility] Comment on above: Performed By: #### L 500.4050 ####[facility] [address] [place], [address] Creatinine [Mass/Vol] 1.19 mg/dL Normal 0.70-1.20 [facility] Comment on above: Performed By: #### L 500.4050 ####[facility] [address] [place], [address] Glucose [Mass/Vol] 99 mg/dL Normal 70-99 [facility] Comment on above: Performed By: #### L 500.4050 ####[facility] [address] [place], [address] Urea nitrogen [Mass/Vol] 25 mg/dL High 4-19 [facility] Comment on above: Performed By: #### L 500.4050 ####[facility] [address] [place], [address] Laboratory - Chemistry and C hemistry - challengeOrdered By: Rodrigo Sanches on 09-21-2024 AST [Catalytic activity/Vol] 23 U/L <32 [facility] Serum globulin measurementOr dered By: Rodrigo Sanches on 09-21-2024 Globulin (S) [Mass/Vol] 3.5 g/dL 2.2-4.2 [facility] Serum or plasma alanine gao otransferase (ALT) measurementOrdered By: Rodrigo Sanches on 09-21-2024 ALT [Catalytic activity/Vol] 15 U/L <35 [facility] Serum or plasma albumin lisa urement (mass/volume)Ordered By: Rodrigo Sanches 09-21-2024 Albumin [Mass/Vol] 3.2 g/dL Low 3.4-4.8 [facility] Serum or plasma albumin/glob ulin mass ratioOrdered By: Rodrigo Sanches 09-21-2024 Albumin/Globulin [Mass ratio] 0.9 {ratio} 0.9-2.4 [facility] Serum or plasma alkaline bee sphatase measurementOrdered By: Rodrigo Sanches 09-21-2024 ALP [Catalytic activity/Vol] 120 U/L High 35-104 [facility] Total proteinOrdered By: Rodrigo Sanches 09-21-2024 Protein [Mass/Vol] 6.7 g/dL 5.9-8.4 [facility] Vancomycin, Trough Levelon 0 09-20-2024 VANCO, TROUGH 9.9 ug/mL Normal 5.0-15.0 [facility] Comment on above: Order Comment: 0800 Result Comment: VANC OMYCIN STANDARED DRUG THERAPY TROUGH LEVEL: 5.0 - 15.0 mg/LVANCOMYCIN HIGH INTENSITY THERAPY TROUGH LEVEL: 15.0 - 20.0 mg/LHigh Intensity therapy recommended for serious lifethreatening infections include:- Azmketxfrh-Qbfxhxgejwzx-Kdsgvksbj (Ventilator/Healtcare Associated)-SepsisPLEASE CONTACT PHARMACY SERVICES (#0304) FOR INTERPRETATIONOF RESULTS. AMENDED REPORT 09/20/24 4344 VANCO, TROUGH previously reported as: 10.3 ug/mLRecommended [...] therapy recommended for serious lifethreatening infections include:- Oujfswkita-Zfoffvlojakj-Nscihwbnw (Ventilator/Healtcare Associated)-SepsisPLEASE CONTACT PHARMACY SERVICES (#8336) FOR [...] therapy recommended for serious lifethreatening infections include:- Iovnbbeefb-Euddzulhrtyr-Jhbzyvsxy (Ventilator/Healtcare Associated)-SepsisPLEASE CONTACT PHARMACY SERVICES (#8347) FOR INTERPRETATIONOF RESULTS. Performed By: #### L 501.8820 ####[facility] [address] [place], [address] Basic Metabolic Profile (BMP )on 09-19-2024 BUN/CRE 18.6 RATIO Normal - [facility] Comment on above: Performed By: #### L 100.0100, L500.2500 ####[facility] [address] [place], [address] Calcium [Mass/Vol] 9.7 mg/dL Normal 7.6-11.0 [facility] Comment on above: Performed By: #### L 100.0100, L500.2500 ####[facility] [address] [place], [address] Chloride [Moles/Vol] 97 mmol/L Low 98-108 [facility] Comment on above: Performed By: #### L 100.0100, L500.2500 ####[facility] [address] [place], [address] CO2 [Moles/Vol] 30.4 mmol/L Normal 21.0-32.0 [facility] Comment on above: Performed By: #### L 100.0100, L500.2500 ####[facility] [address] [place], [address] Creatinine [Mass/Vol] 1.07 mg/dL Normal 0.70-1.20 [facility] Comment on above: Performed By: #### L 100.0100, L500.2500 ####[facility] [address] [place], [address] ECRCL 57.28 ml/min Normal 50-250 [facility] Comment on above: Performed By: #### L 100.0100, L500.2500 ####[facility] [address] [place], [address] GAP 14 Normal 5-15 [facility] Comment on above: Performed By: #### L 100.0100, L500.2500 ####[facility] [address] [place], [address] GFR/1.73 sq M.predicted among non-blacks MDRD (S/P/Bld) [Vol rate/Area] 54 mL/min/{1.73_m2} Low >60 [facility] Comment on above: Result Comment: mL/m in/1.73m2 CKD-EPI Creatinine Equation (2020) Performed By: #### L 100.0100, L500.2500 ####[facility] [address] [place], [address] Glucose [Mass/Vol] 101 mg/dL High 70-99 [facility] Comment on above: Performed By: #### L 100.0100, L500.2500 ####[facility] [address] [place], [address] Potassium [Moles/Vol] 4.6 mmol/L Normal 3.3-5.1 [facility] Comment on above: Performed By: #### L 100.0100, L500.2500 ####[facility] [address] [place], [address] Sodium [Moles/Vol] 142 mmol/L Normal 133-145 [facility] Comment on above: Performed By: #### L 100.0100, L500.2500 ####[facility] [address] [place], [address] Urea nitrogen [Mass/Vol] 20 mg/dL High 4-19 [facility] Comment on above: Performed By: #### L 100.0100, L500.2500 ####[facility] [address] [place], [address] CBC W/Diff, Automatedon 03- 0-2024 Absolute Lymph 1.49 X10 3/uL Normal 0.83-4.51 [facility] Comment on above: Performed By: #### L 100.0100, L500.2500 ####[facility] [address] [place], [address] Absolute Neut 7.6 X10 3/uL Normal 2.0-7.7 [facility] Comment on above: Performed By: #### L 100.0100, L500.2500 ####[facility] [address] [place], [address] Basophils/100 WBC (Bld) 0.8 % Normal 0-1 [facility] Comment on above: Performed By: #### L 100.0100, L500.2500 ####[facility] [address] [place], [address] Eosinophils/100 WBC (Bld) 2.9 % Normal 0-5 [facility] Comment on above: Performed By: #### L 100.0100, L500.2500 ####[facility] [address] [place], [address] Erythrocyte distribution width (RBC) [Ratio] 14.1 % Normal 11.6-14.6 [facility] Comment on above: Performed By: #### L 100.0100, L500.2500 ####[facility] [address] [place], [address] Hematocrit (Bld) [Volume fraction] 38.9 % Normal 37-47 [facility] Comment on above: Performed By: #### L 100.0100, L500.2500 ####[facility] [address] [place], [address] Hemoglobin (Bld) [Mass/Vol] 12.3 g/dL Normal 12.0-15.0 [facility] Comment on above: Performed By: #### L 100.0100, L500.2500 ####[facility] [address] [place], [address] IG% 1.200 High 0.0-0.9 [facility] Comment on above: Result Comment: IG% - Immature Granulocytes (promyelocytes, myelocytes andmetamyelocytes) > 1% indicates that a LEFT SHIFT is Present. Performed By: #### L 100.0100, L500.2500 ####[facility] [address] [place], [address] Lymphocytes/100 WBC (Bld) 14.6 % Low 19-41 [facility] Comment on above: Performed By: #### L 100.0100, L500.2500 ####[facility] [address] [place], [address] MCH (RBC) [Entitic mass] 29.4 pg Normal 27.0-32.0 [facility] Comment on above: Performed By: #### L 100.0100, L500.2500 ####[facility] [address] [place], [address] MCHC (RBC) [Mass/Vol] 31.6 g/dL Low 32-36 [facility] Comment on above: Performed By: #### L 100.0100, L500.2500 ####[facility] [address] [place], [address] MCV (RBC) [Entitic vol] 93.1 fL Normal 81-[address] [facility] Comment on above: Performed By: #### L 100.0100, L500.2500 ####[facility] [address] [place], [address] Monocytes/100 WBC (Bld) 6.3 % Normal 0-[address] [facility] Comment on above: Performed By: #### L 100.0100, L500.2500 ####[facility] [address] [place], [address] Neutrophils/100 WBC (Bld) 74.2 % High 47-70 [facility] Comment on above: Performed By: #### L 100.0100, L500.2500 ####[facility] [address] [place], [address] Nucleated RBC (Bld) [#/Vol] 0 10*3/uL Normal 0-5 [facility] Comment on above: Performed By: #### L 100.0100, L500.2500 ####[facility] [facility] [address] [place], [address] Platelet mean volume (Bld) [Entitic vol] 9.5 fL Normal 6.2-12.0 [facility] Comment on above: Performed By: #### L 100.0100, L500.2500 ####[facility] [address] [place], [address] Platelets (Bld) [#/Vol] 349 10*3/uL Normal 150-450 [facility] Comment on above: Performed By: #### L 100.0100, L500.2500 ####[facility] [address] [place], [address] RBC (Bld) [#/Vol] 4.18 10*6/uL Low 4.2-5.4 [facility] Comment on above: Performed By: #### L 100.0100, L500.2500 ####[facility] [address] [place], [address] RDW SD 48.7 fl High 35.1-43.9 [facility] Comment on above: Performed By: #### L 100.0100, L500.2500 ####[facility] [address] [place], [address] WBC (Bld) [#/Vol] 10.2 10*3/uL Normal 4.4-11.0 [facility] Comment on above: Performed By: #### L 100.0100, L500.2500 ####[facility] [address] [place], [address] Culture, Blood (WB)on 2024 CUB No growth in 5 days. Normal [facility] Comment on above: Performed By: #### M 200.1000 ####[facility] [address] [place], [address] Vancomycin trough [Mass/Vol] Ordered By: Fahad Cavanaugh on 09-18-2024 Vancomycin Level Trough 10.7 ug/mL 5.0-15.[address] [facility] Comment on above: Recommended goal tro [...] therapy recommended for serious lifethreatening infections include:- Lyzeldholh-Inobgsfjwfpc-Lcpgkpeip (Ventilator/[employer])-Sepsis PLEASE CONTACT PHARMACY SERVICES (#3028) FOR INTERPRETATIONOF RESULTS. Vancomycin, Trough Levelon 0 09-18-2024 VANCO, TROUGH 10.7 ug/mL Normal 5.0-15.0 [facility] Comment on above: Order Comment: Comme nts: DRAW 30 MIN PRIOR TO [id number] Result Comment: Zackery mmended goal trough ranges [...] therapy recommended for serious lifethreatening infections include:- Aoeyfppldg-Gwgmzfifgpin-Oorhlmkrx (Ventilator/[employer])-SepsisPLEASE CONTACT PHARMACY SERVICES (#9102) FOR INTERPRETATIONOF RESULTS. Performed By: #### L 446.8801 ####[facility] [address] [place], [place], [id number] C. difficile DNA RANJIT+probe Q l (Unsp spec)Ordered By: Claire Mayorga on 09-17-2024 Clostridioides difficile (PCR) [facility] CDIFF (PCR)on 09-17-2024 CDIFF Normal [facility] Comment on above: Performed By: #### M 100.6796 ####[facility] [address] [place], [address] Culture, Anaerobic Any Sourc akosua 09-17-2024 CUAN UNK UNK Left Posterior Synovium - collected in [place] No anaerobic bacteria isolated. [facility] Comment on above: Performed By: #### M 100.2000, M600.2200, M300.2000, M100.3000, M300.3000, M600.2000, M100.4001 ####[facility] [address] [place], [address] CUAN UNK UNK Left Humeral Membrane - collected in [place] No anaerobic bacteria isolated. Normal [facility] Comment on above: Performed By: #### M 100.4001, M600.2000, M300.2000, M300.3000, M100.2000, M100.3000, M600.2200 ####[facility] [address] [place], [address] CUAN UNK UNK Left Glenosphere Membrane - collected in [place] No anaerobic bacteria isolated. Normal [facility] Comment on above: Performed By: #### M 100.3000, M300.2000, M600.2200, M300.3000, M100.2000, M600.2000, M100.4001 ####[facility] [address] [place], [address] CUAN Results called on 09/12/24-1023 by FOREST to [phone]. UNK UNK No anaerobic bacteria isolated. Normal [facility] Comment on above: Performed By: #### M 100.4001, M100.2900, M100.2000, M300.3000, L200.0400, M600.2000, M300.2000 ####[facility] [address] [place], [address] 12 Lead EKGon 09-16-2024 12 Lead EKG Normal [facility] Absolute neutrophil countOrd ered By: Emili Lee on 09-16-2024 Neutrophils (Bld) [#/Vol] 7.1 10*3/uL 2.0-7.7 [facility] Anion gap in Serum or Plasma Ordered By: Emili Lee on 09-16-2024 Anion gap [Moles/Vol] 7 mmol/L 5-15 [facility] Automated blood erythrocyte countOrdered By: Emili Lee on 09-16-2024 RBC (Bld) [#/Vol] 3.69 10*6/uL Low 4.2-5.4 [facility] Comment on above: Performed By: #### L 100.0100, L500.2500 ####[facility] [address] [place], [address] Automated blood hematocrit ( percentage)Ordered By: Emili Lee on 09-16-2024 Hematocrit (Bld) [Volume fraction] 35.3 % Low 37-47 [facility] Comment on above: Performed By: #### L 100.0100, L500.2500 ####[facility] [address] [place], [address] Automated lymphocyte count a s percentage of total leukocytesOrdered By: Emili Lee on 09-16-2024 Lymphocytes/100 WBC (Bld) 11.6 % Low 19-41 [facility] Comment on above: Performed By: #### L 100.0100, L500.2500 ####[facility] [address] [place], [address] BUN/creatinine ratioOrdered By: Emili Lee on 09-16-2024 Urea nitrogen/Creatinine [Mass ratio] 25.4 mg/mg High [facility]20 [facility] Basic Metabolic Profile (BMP )on 09-16-2024 BUN/CRE 25.4 RATIO High [facility]20 [facility] Comment on above: Performed By: #### L 100.0100, L500.2500 ####[facility] [address] [place], [address] ECRCL 65.28 ml/min Normal 50-250 [facility] Comment on above: Performed By: #### L 100.0100, L500.2500 ####[facility] [address] [place], [address] GAP 7 Normal 5-15 [facility] Comment on above: Performed By: #### L 100.0100, L500.2500 ####[facility] [address] [place], [address] GFR/1.73 sq M.predicted among non-blacks MDRD (S/P/Bld) [Vol rate/Area] 64 mL/min/{1.73_m2} Normal >60 [facility] Comment on above: Result Comment: mL/m in/1.73m2 CKD-EPI Creatinine Equation (2020) Performed By: #### L 100.0100, L500.2500 ####[facility] [address] [place], [address] Basophil percentageOrdered B y: Emili Lee on 09-16-2024 Basophils/100 WBC (Bld) 0.4 % Normal 0-1 [facility] Comment on above: Performed By: #### L 100.0100, L500.2500 ####[facility] [address] [place], [address] Body Fluid Culton 09-16-2024 BFC Normal [facility] Comment on above: Performed By: #### M 100.4001, M100.2900, M100.2000, M300.3000, L200.0400, M600.2000, M300.2000 ####[facility] [address] [place], [address] CBC W/Diff, Automatedon 08-31 Absolute Lymph 1.07 X10 3/uL Normal 0.83-4.51 [facility] Comment on above: Performed By: #### L 100.0100, L500.2500 ####[facility] [address] [place], [address] Absolute Neut 7.1 X10 3/uL Normal 2.0-7.7 [facility] Comment on above: Performed By: #### L 100.0100, L500.2500 ####[facility] [address] [place], [address] IG% 0.900 Normal 0.0-0.9 [facility] Comment on above: Result Comment: IG% - Immature Granulocytes (promyelocytes, myelocytes andmetamyelocytes) > 1% indicates that a LEFT SHIFT is Present. Performed By: #### L 100.0100, L500.2500 ####[facility] [address] [place], [address] Nucleated RBC (Bld) [#/Vol] 0 10*3/uL Normal 0-5 [facility] Comment on above: Performed By: #### L 100.0100, L500.2500 ####[facility] [address] [place], [address] RDW SD 50.0 fl High 35.1-43.9 [facility] Comment on above: Performed By: #### L 100.0100, L500.2500 ####[facility] [address] [place], [address] Carbon dioxide, total [Moles /volume] in Central venous bloodOrdered By: Emili Lee on 09-16-2024 CO2 [Moles/Vol] 32.4 mmol/L High 21.0-32.0 [facility] Comment on above: Performed By: #### L 100.0100, L500.2500 ####[facility] [address] [place], [address] Chloride assayOrdered By: Anna Lee on 09-16-2024 Chloride [Moles/Vol] 101 mmol/L Normal 98-108 [facility] Comment on above: Performed By: #### L 100.0100, L500.2500 ####[facility] [address] [place], [address] Consultation - Infectious Dx on 09-16-2024 Consultation - Infectious Dx Normal [facility] Electrocardiogram reportOrde red By: Tejal Holly on 09-16-2024 EKG study [facility] [address] [facility] [place] [address] 12 Lead EKG 09/12/24 0804 MR#: [id number] Acct: [id number] Name: OSCAR WOO Rep #:[id number] : 1950 74 From: Tejal aquino MD Attending Dr: Dr. Fahad Cavanaugh MD Status: ADM IN Ordering Dr: Omar Walters MD Date: 08/31 01/24 [place] [facility] [place]: F C Admitted: 09/14/24 Test Reason [...] ECG Confirmed by ELAYNE COTTER, MARIELENA ([id number]), publishing editor TRINITY ORTIZ ([id number]) on09/16/2024 11:30:54 AM Referred By: Fahad Cavanaugh Confirmed By: MARIELENA HOLLY MD 09/16/24 1130 Date _ Tejal Holly MD CC: Dr. Omar Walters MD; Dr. Kamar Grimes MD; Dr. Fahad Cavanaugh MD ~ Signed [facility] Work Phone: Eosinophil percentageOrdered By: Emili Lee on 09-16-2024 Eosinophils/100 WBC (Bld) 3.2 % Normal 0-5 [facility] Comment on above: Performed By: #### L 100.0100, L500.2500 ####[facility] [address] [place], [address] Erythrocyte distribution wid th ratioOrdered By: Emili Lee on 09-16-2024 Erythrocyte distribution width (RBC) [Ratio] 14.3 % Normal 11.6-14.6 [facility] Comment on above: Performed By: #### L 100.0100, L500.2500 ####[facility] [address] [place], [place], [address] Erythrocyte distribution wid th standard deviationOrdered By: Emili Lee on 09-16-2024 Erythrocyte distribution width (RBC) [Entitic vol] 50.0 fL High 35.1-43.9 [facility] Estimation of creatinine darrell aranceOrdered By: Emili Lee on 09-16-2024 Estimated Creatinine Clearance Calc 65.28 ml/min 50-250 [facility] GFR/1.73 sq M.predicted hans g non-blacks MDRD (S/P/Bld) [Vol rate/Area]Ordered By: Emili Lee on 09-16-2024 Estimated GFR (MDRD) Non-Af Amer 64 >60 [facility] Comment on above: mL/min/1.73m2 CKD-EP I Creatinine Equation (2020) Hemoglobin measurementOrdere d By: Emili Lee on 09-16-2024 Hemoglobin (Bld) [Mass/Vol] 11.0 g/dL Low 12.0-15.0 [facility] Comment on above: Performed By: #### L 100.0100, L500.2500 ####[facility] [address] [place], [place], [address] Immature granulocytes/100 WB C Auto (Bld)Ordered By: Emili Lee on 09-16-2024 Immature granulocytes/100 WBC (Bld) 0.900 % 0.0-0.9 [facility] Comment on above: IG% - Immature Granu locytes (promyelocytes, myelocytes and metamyelocytes) > 1% indicates that a LEFT SHIFT is Present. Lymphocytes Auto (Unsp spec) [#/Vol]Ordered By: Emili Lee on 09-16-2024 Lymphocytes (Bld) [#/Vol] 1.07 10*3/uL 0.83-4.51 [facility] MCV (mean corpuscular volume ) determinationOrdered By: Emili Lee on 09-16-2024 MCV (RBC) [Entitic vol] 95.7 fL Normal 81-99 [facility] Comment on above: Performed By: #### L 100.0100, L500.2500 ####[facility] [address] [place], [address] Mean corpuscular hemoglobin (MCH) determinationOrdered By: Emili Lee on 09-16-2024 MCH (RBC) [Entitic mass] 29.8 pg Normal 27.0-32.0 [facility] Comment on above: Performed By: #### L 100.0100, L500.2500 ####[facility] [address] [place], [address] Mean corpuscular hemoglobin concentration (MCHC) determinationOrdered By: Emili Lee on 09-16-2024 MCHC (RBC) [Mass/Vol] 31.2 g/dL Low 32-36 [facility] Comment on above: Performed By: #### L 100.0100, L500.2500 ####[facility] [address] [place], [address] Mean platelet volume determi nationOrdered By: Emili Lee on 09-16-2024 Platelet mean volume (Bld) [Entitic vol] 9.4 fL Normal 6.2-12.0 [facility] Comment on above: Performed By: #### L 100.0100, L500.2500 ####[facility] [address] [place], [address] Monocyte percentageOrdered B y: Eimli Lee on 09-16-2024 Monocytes/100 WBC (Bld) 7.0 % Normal 0-10 [facility] Comment on above: Performed By: #### L 100.0100, L500.2500 ####[facility] [address] [place], [address] Neutrophil percentageOrdered By: Emili Lee on 09-16-2024 Neutrophils/100 WBC (Bld) 76.9 % High 47-70 [facility] Comment on above: Performed By: #### L 100.0100, L500.2500 ####[facility] [address] [place], [address] Nucleated red blood cell per centageOrdered By: Emili Lee on 09-16-2024 Nucleated RBC/100 WBC (Bld) [Ratio] 0 % 0-5 [facility] Platelet countOrdered By: Anna Lee on 09-16-2024 Platelets (Bld) [#/Vol] 261 10*3/uL Normal 150-450 [facility] Comment on above: Performed By: #### L 100.0100, L500.2500 ####[facility] [address] [facility] [address] Potassium measurement (mass/ volume)Ordered By: Emili Lee on 09-16-2024 Potassium [Moles/Vol] 4.8 mmol/L Normal 3.3-5.1 [facility] Comment on above: Performed By: #### L 100.0100, L500.2500 ####[facility] [address] [place], [address] Serum creatinine measurement (mass/volume)Ordered By: Emili Lee on 09-16-2024 Creatinine [Mass/Vol] 0.93 mg/dL Normal 0.70-1.20 [facility] Comment on above: Performed By: #### L 100.0100, L500.2500 ####[facility] [address] [place], [address] Serum glucose measurement (m ass/volume)Ordered By: Emili Lee on 09-16-2024 Glucose [Mass/Vol] 108 mg/dL High 70-99 [facility] Comment on above: Performed By: #### L 100.0100, L500.2500 ####[facility] [address] [place], [address] Serum or plasma calcium lisa urement (mass/volume)Ordered By: Emili Lee on 09-16-2024 Calcium [Mass/Vol] 8.9 mg/dL Normal 7.6-11.0 [facility] Comment on above: Performed By: #### L 100.0100, L500.2500 ####[facility] [address] [place], [address] Serum or plasma urea nitroge n measurement (mass/volume)Ordered By: Emili Lee on 09-16-2024 Urea nitrogen [Mass/Vol] 24 mg/dL High 4-19 [facility] Comment on above: Performed By: #### L 100.0100, L500.2500 ####[facility] [address], [address] Sodium levelOrdered By: Stephen Lee on 09-16-2024 Sodium [Moles/Vol] 140 mmol/L Normal 133-145 [facility] Comment on above: Performed By: #### L 100.0100, L500.2500 ####[facility] [address], [address] Vancomycin [Mass/Vol]Ordered By: Fahad Cavanaugh on 09-16-2024 Random Vancomycin Level 14.4 ug/mL 0.0-15.[address] [facility] Comment on above: VANCOMYCIN STANDARD DRUG THERAPY: CRITICAL VALUE IS > 15.0 mg/L VANCOMYCIN HIGH INTENSITY THERAPY: CRITICAL VALUE IS > 20.0 mg/L PLEASE CONTACT PHARMACY SERVICES (#2432) FOR INTERPRETATIONOF RESULTS. THIS RESULT DOES NOT REPRESENT A PEAK OR TROUGHLEVEL FOR THIS DRUG. Vancomycin, Random Levelon 0 09-16-2024 VANCO, RANDOM 14.4 ug/mL Normal 0.0-15.0 [facility] Comment on above: Result Comment: VANC OMYCIN STANDARD DRUG THERAPY: CRITICAL VALUE IS > 15.0 mg/LVANCOMYCIN HIGH INTENSITY THERAPY: CRITICAL VALUE IS > 20.0 mg/LPLEASE CONTACT PHARMACY SERVICES (#7061) FOR INTERPRETATIONOF RESULTS. THIS RESULT DOES NOT REPRESENT A PEAK OR TROUGHLEVEL FOR THIS DRUG. Performed By: #### L 501.8850 ####[facility] [address] [place], [address] White blood cell (WBC) count Ordered By: Emili Lee on 09-16-2024 WBC (Bld) [#/Vol] 9.2 10*3/uL Normal 4.4-11.0 [facility] Comment on above: Performed By: #### L 100.0100, L500.2500 ####[facility] [address] [place], [address] Wound Cultureon 09-16-2024 [facility] Comment on above: Performed By: #### M 100.4001, M600.2000, M300.2000, M300.3000, M100.2000, M100.3000, M600.2200 ####[facility] [address] [place], [address] [facility] Comment on above: Performed By: #### M 100.2000, M600.2200, M300.2000, M100.3000, M300.3000, M600.2000, M100.4001 ####[facility] [address] [place], [address] [facility] Comment on above: Performed By: #### M 100.3000, M300.2000, M600.2200, M300.3000, M100.2000, M600.2000, M100.4001 ####[facility] [address] [place], [address] Basic Metabolic Profile (BMP )on 09-15-2024 BUN/CRE 29.0 RATIO High 10-20 [facility] Comment on above: Performed By: #### L 500.2500, L100.0500 ####[facility] [address] [place], [address] Calcium [Mass/Vol] 8.4 mg/dL Normal 7.6-11.0 [facility] Comment on above: Performed By: #### L 500.2500, L100.0500 ####[facility] [address] [place], [address] Chloride [Moles/Vol] 99 mmol/L Normal 98-108 [facility] Comment on above: Performed By: #### L 500.2500, L100.0500 ####[facility] [address] [place], [address] CO2 [Moles/Vol] 24.7 mmol/L Normal 21.0-32.0 [facility] Comment on above: Performed By: #### L 500.2500, L100.0500 ####[facility] [address] [place], [address] Creatinine [Mass/Vol] 1.12 mg/dL Normal 0.70-1.20 [facility] Comment on above: Performed By: #### L 500.2500, L100.0500 ####[facility] [address] [place], [address] ECRCL 54.21 ml/min Normal 50-250 [facility] Comment on above: Performed By: #### L 500.2500, L100.0500 ####[facility] [address] [place], [address] GAP 11 Normal 5-15 [facility] Comment on above: Performed By: #### L 500.2500, L100.0500 ####[facility] [address] [place], [address] GFR/1.73 sq M.predicted among non-blacks MDRD (S/P/Bld) [Vol rate/Area] 51 mL/min/{1.73_m2} Low >60 [facility] Comment on above: Result Comment: mL/m in/1.73m2 CKD-EPI Creatinine Equation (2020) Performed By: #### L 500.2500, L100.0500 ####[facility] [address] [place], [address] Glucose [Mass/Vol] 100 mg/dL High 70-99 [facility] Comment on above: Performed By: #### L 500.2500, L100.0500 ####[facility] [address] [place], [address] Potassium [Moles/Vol] 4.1 mmol/L Normal 3.3-5.1 [facility] Comment on above: Result Comment: Hemo lysis present, Results??could be affected.?? Performed By: #### L 500.2500, L100.0500 ####[facility] [address] [place], [address] Sodium [Moles/Vol] 135 mmol/L Normal 133-145 [facility] Comment on above: Performed By: #### L 500.2500, L100.0500 ####[facility] [address] [place], [address] Urea nitrogen [Mass/Vol] 33 mg/dL High 4-19 [facility] Comment on above: Performed By: #### L 500.2500, L100.0500 ####[facility] [address] [place], [address] CBC-Complete Blood Cnt No Di ffon 09-15-2024 Erythrocyte distribution width (RBC) [Ratio] 14.1 % Normal 11.6-14.6 [facility] Comment on above: Performed By: #### L 500.2500, L100.0500 ####[facility] [address] [place], [address] Hematocrit (Bld) [Volume fraction] 36.4 % Low 37-47 [facility] Comment on above: Performed By: #### L 500.2500, L100.0500 ####[facility] [address] [place], [address] Hemoglobin (Bld) [Mass/Vol] 11.5 g/dL Low 12.0-15.0 [facility] Comment on above: Performed By: #### L 500.2500, L100.0500 ####[facility] [address] [place], [address] MCH (RBC) [Entitic mass] 29.4 pg Normal 27.0-32.0 [facility] Comment on above: Performed By: #### L 500.2500, L100.0500 ####[facility] [address] [place], [address] MCHC (RBC) [Mass/Vol] 31.6 g/dL Low 32-36 [facility] Comment on above: Performed By: #### L 500.2500, L100.0500 ####[facility] [address] [place], [address] MCV (RBC) [Entitic vol] 93.1 fL Normal 81-[address] [facility] Comment on above: Performed By: #### L 500.2500, L100.0500 ####[facility] [address] [place], [address] Platelet mean volume (Bld) [Entitic vol] 10.0 fL Normal 6.2-12.0 [facility] Comment on above: Performed By: #### L 500.2500, L100.0500 ####[facility] [address] [place], [address] Platelets (Bld) [#/Vol] 238 10*3/uL Normal 150-450 [facility] Comment on above: Performed By: #### L 500.2500, L100.0500 ####[facility] [address] [place], [address] RBC (Bld) [#/Vol] 3.91 10*6/uL Low 4.2-5.4 [facility] Comment on above: Performed By: #### L 500.2500, L100.0500 ####[facility] [address] [place], [address] RDW SD 48.1 fl High 35.1-43.9 [facility] Comment on above: Performed By: #### L 500.2500, L100.0500 ####[facility] [address] [place], [address] WBC (Bld) [#/Vol] 9.6 10*3/uL Normal 4.4-11.0 [facility] Comment on above: Performed By: #### L 500.2500, L100.0500 ####[facility] [address] [place], [address] Chest PA and Lateralon 09-15 Chest PA and Lateral Normal [facility] M100.019on 09-15-2024 M100.019 Negative Normal [facility] Comment on above: Performed By: #### M 100.638, M100.019 ####[facility] [address] [place], [address] RESPIRATORY PANEL MOLECULARo n 09-15-2024 RP PANEL Normal [facility] Comment on above: Performed By: #### M 100.638, M100.019 ####[facility] [address] [place], [address] Respiratory pathogens DNA an d RNA panel RANJIT+probe (Resp)Ordered By: Emili Lee on 09-15-2024 Respiratory Panel (PCR) [facility] Wexq-smb-[id number] By: Emili Lee on 09-15-2024 SARS-CoV-2 (COVID-19) RNA RANJIT+probe Ql (Unsp spec) [facility] Vancomycin, Trough Levelon 0 09-15-2024 VANCO, TROUGH 22.8 ug/mL High 5.0-15.0 [facility] Comment on above: Order Comment: Comme nts: DRAW 30 MIN PRIOR TO [id number] Result Comment: Zackery mmended goal trough ranges [...] therapy recommended for serious lifethreatening infections include:- Eewrfxmrlt-Mgcqeiaqstny-Xzgmymmmm (Ventilator/Healtcare Associated)-SepsisPLEASE CONTACT PHARMACY SERVICES (#2113) FOR INTERPRETATIONOF RESULTS. Performed By: #### L 501.8820 ####[facility] [address] [place], [address] Basic Metabolic Profile (BMP )on 09-14-2024 BUN/CRE 18.8 RATIO Normal 10-20 [facility] Comment on above: Performed By: #### L 500.2500, L100.0500 ####[facility] [address] [place], [address] Calcium [Mass/Vol] 8.3 mg/dL Normal 7.6-11.0 [facility] Comment on above: Performed By: #### L 500.2500, L100.0500 ####[facility] [address] [place], [address] Chloride [Moles/Vol] 93 mmol/L Low 98-108 [facility] Comment on above: Performed By: #### L 500.2500, L100.0500 ####[facility] [address] [place], [address] CO2 [Moles/Vol] 26.4 mmol/L Normal 21.0-32.0 [facility] Comment on above: Performed By: #### L 500.2500, L100.0500 ####[facility] [address] [place], [address] Creatinine [Mass/Vol] 1.28 mg/dL High 0.70-1.20 [facility] Comment on above: Performed By: #### L 500.2500, L100.0500 ####[facility] [address] [place], [address] ECRCL 47.43 ml/min Low 50-250 [facility] Comment on above: Performed By: #### L 500.2500, L100.0500 ####[facility] [address] [place], [address] GAP 12 Normal 5-15 [facility] Comment on above: Performed By: #### L 500.2500, L100.0500 ####[facility] [address] [place], [address] GFR/1.73 sq M.predicted among non-blacks MDRD (S/P/Bld) [Vol rate/Area] 44 mL/min/{1.73_m2} Low >60 [facility] Comment on above: Result Comment: mL/m in/1.73m2 CKD-EPI Creatinine Equation (2020) Performed By: #### L 500.2500, L100.0500 ####[facility] [address] [place], [address] Glucose [Mass/Vol] 111 mg/dL High 70-99 [facility] Comment on above: Performed By: #### L 500.2500, L100.0500 ####[facility] [address] [place], [address] Potassium [Moles/Vol] 4.0 mmol/L Normal 3.3-5.1 [facility] Comment on above: Performed By: #### L 500.2500, L100.0500 ####[facility] [address] [place], [address] Sodium [Moles/Vol] 131 mmol/L Low 133-145 [facility] Comment on above: Performed By: #### L 500.2500, L100.0500 ####[facility] [address] [place], [address] Urea nitrogen [Mass/Vol] 24 mg/dL High 4-19 [facility] Comment on above: Performed By: #### L 500.2500, L100.0500 ####[facility] [address] [place], [address] CBC-Complete Blood Cnt No Di ffon 09-14-2024 Erythrocyte distribution width (RBC) [Ratio] 14.0 % Normal 11.6-14.6 [facility] Comment on above: Performed By: #### L 500.2500, L100.0500 ####[facility] [address] [place], [address] Hematocrit (Bld) [Volume fraction] 32.5 % Low 37-47 [facility] Comment on above: Performed By: #### L 500.2500, L100.0500 ####[facility] [address] [place], [address] Hemoglobin (Bld) [Mass/Vol] 10.2 g/dL Low 12.0-15.0 [facility] Comment on above: Performed By: #### L 500.2500, L100.0500 ####[facility] [address] [place], [address] MCH (RBC) [Entitic mass] 29.6 pg Normal 27.0-32.0 [facility] Comment on above: Performed By: #### L 500.2500, L100.0500 ####[facility] [address] [place], [address] MCHC (RBC) [Mass/Vol] 31.4 g/dL Low 32-36 [facility] Comment on above: Performed By: #### L 500.2500, L100.0500 ####[facility] [address] [place], [address] MCV (RBC) [Entitic vol] 94.2 fL Normal 81-99 [facility] Comment on above: Performed By: #### L 500.2500, L100.0500 ####[facility] [address] [place], [address] Platelet mean volume (Bld) [Entitic vol] 10.1 fL Normal 6.2-12.0 [facility] Comment on above: Performed By: #### L 500.2500, L100.0500 ####[facility] [address] [place], [address] Platelets (Bld) [#/Vol] 239 10*3/uL Normal 150-450 [facility] Comment on above: Performed By: #### L 500.2500, L100.0500 ####[facility] [address] [place], [address] RBC (Bld) [#/Vol] 3.45 10*6/uL Low 4.2-5.4 [facility] Comment on above: Performed By: #### L 500.2500, L100.0500 ####[facility] [address] [place], [address] RDW SD 48.3 fl High 35.1-43.9 [facility] Comment on above: Performed By: #### L 500.2500, L100.0500 ####[facility] [address] [place], [address] WBC (Bld) [#/Vol] 11.3 10*3/uL High 4.4-11.0 [facility] Comment on above: Performed By: #### L 500.2500, L100.0500 ####[facility] [address] [place], [address] Gram Stainon 09-14-2024 GS UNK UNK Left Posterior Synovium - collected in [place] Gram Stain Very Rare Gram positive cocci Normal [facility] Comment on above: Performed By: #### M 100.2000, M600.2200, M300.2000, M100.3000, M300.3000, M600.2000, M100.4001 ####[facility] [address] [place], [address] GS UNK UNK Left Glenosphere Membrane - collected in [place] Gram Stain Very Rare Gram positive cocci 1+ White Blood Cells Normal [facility] Comment on above: Performed By: #### M 100.3000, M300.2000, M600.2200, M300.3000, M100.2000, M600.2000, M100.4001 ####[facility] [address] [place], [address] GS UNK UNK Left Humeral Membrane - collected in [place] Gram Stain 4+ Gram positive cocci in clusters Normal [facility] Comment on above: Performed By: #### M 100.4001, M600.2000, M300.2000, M300.3000, M100.2000, M100.3000, M600.2200 ####[facility] [address] [place], [address] Bacteria identified Anaer cx Nom (Unsp spec)Ordered By: Fahad Cavanaugh on 09-13-2024 Anaerobic Culture No anaerobic bacteri a isolated. [facility] Bedside Glucoseon 09-13-2024 FINGERSTICK GLU 88 mg/dL Normal 74-106 [facility] Comment on above: Result Comment: ROSA ISELA GEMENT OF PATIENT CARE PER NURSING PROTOCOL Performed By: #### L 501.080 ####[facility] [address] [place], [address] Blood cultureOrdered By: Jonathan Cavanaugh on 09-13-2024 Bacteria identified Cx Nom (Bld) No growth in 5 days. [facility] deOrdered By: Fahad Cavanaugh on 09-13-2024 Bedside Glucose (Misc Panel) 88 mg/dL 74-106 [facility] Comment on above: MANAGEMENT OF PATIEN T CARE PER NURSING PROTOCOL Gram stainOrdered By: Fahad Cavanaugh on 09-13-2024 Microscopic observation Gram stain Nom (Unsp spec) [facility] MR/POSTOP.ANEon 09-13-2024 MR/POSTOP.ANE Normal [facility] MR/ODRBXYDO8zw 09-13-2024 MR/POSTOPAN2 Normal [facility] MRSA/SAID NASAL SCREENon MRSA+SAID SCRN Reason for Exam: PRE OP MRSA MRSA Negative S. AUREUS S. aureus PositiveA Normal [facility] Comment on above: Performed By: #### M 100.651 ####[facility] [address] [place], [address] Operative Reporton Operative Report Normal [facility] Routine wound cultureOrdered By: Fahad Cavanaugh on 09-13-2024 Wound Culture Staphylococcus aureus Abnormal [facility] Shoulder min 2 Viewson 09-13 Shoulder min 2 Views Normal [facility] CBC-Complete Blood Cnt No Di ffon 09-12-2024 Erythrocyte distribution width (RBC) [Ratio] 13.7 % Normal 11.6-14.6 [facility] Comment on above: Performed By: #### L 501.5200, L100.0500 ####[facility] [address] [place], [address] Hematocrit (Bld) [Volume fraction] 37.2 % Normal 37-47 [facility] Comment on above: Performed By: #### L 501.5200, L100.0500 ####[facility] [address] [place], [address] Hemoglobin (Bld) [Mass/Vol] 12.2 g/dL Normal 12.0-15.0 [facility] Comment on above: Performed By: #### L 501.5200, L100.0500 ####[facility] [address] [place], [address] MCH (RBC) [Entitic mass] 30.0 pg Normal 27.0-32.0 [facility] Comment on above: Performed By: #### L 501.5200, L100.0500 ####[facility] [address] [place], [address] MCHC (RBC) [Mass/Vol] 32.8 g/dL Normal 32-36 [facility] Comment on above: Performed By: #### L 501.5200, L100.0500 ####[facility] [address] [place], [address] MCV (RBC) [Entitic vol] 91.6 fL Normal 81-99 [facility] Comment on above: Performed By: #### L 501.5200, L100.0500 ####[facility] [address] [place], [address] Platelet mean volume (Bld) [Entitic vol] 10.1 fL Normal 6.2-12.0 [facility] Comment on above: Performed By: #### L 501.5200, L100.0500 ####[facility] [address] [place], [address] Platelets (Bld) [#/Vol] 230 10*3/uL Normal 150-450 [facility] Comment on above: Performed By: #### L 501.5200, L100.0500 ####[facility] [address] [place], [address] RBC (Bld) [#/Vol] 4.06 10*6/uL Low 4.2-5.4 [facility] Comment on above: Performed By: #### L 501.5200, L100.0500 ####[facility] [address] [place], [address] RDW SD 47.1 fl High 35.1-43.9 [facility] Comment on above: Performed By: #### L 501.5200, L100.0500 ####[facility] [address] [place], [address] WBC (Bld) [#/Vol] 10.0 10*3/uL Normal 4.4-11.0 [facility] Comment on above: Performed By: #### L 501.5200, L100.0500 ####[facility] [address] [place], [address] Gram Stainon 09-12-2024 GS Results called on 09/12/24-1023 by FOREST to [phone]. UNK UNK Test not performed Normal [facility] Comment on above: Performed By: #### M 100.4001, M100.2900, M100.2000, M300.3000, L200.0400, M600.2000, M300.2000 ####[facility] [address] [place], [address] MR/PAT.ANEon 09-12-2024 MR/PAT.ANE Normal [facility] MR/PAT.ANE Normal [facility] MRSA screenOrdered By: Mike Cavanaugh on 09-12-2024 Nasal Screen MRSA/MSSA [facility] Magnesiumon 09-12-2024 Magnesium [Mass/Vol] 1.7 mg/dL Normal 1.5-2.2 [facility] Comment on above: Performed By: #### L 501.5200, L100.0500 ####[facility] [address] [place], [address] Magnesium (Unsp spec) [Mass/ Vol]Ordered By: Omar Walters on 09-12-2024 Magnesium [Mass/Vol] 1.7 mg/dL 1.5-2.2 [facility] Appearance (Syn fld)Ordered By: Fahad Cavanaugh on 09-11-2024 Synovial Fluid Appearance Cloudy CLEAR [facility] Bacteria identified Anaer cx Nom (Unsp spec)Ordered By: Fahad Cavanaugh on 09-11-2024 Anaerobic Culture No anaerobic bacteri a isolated. [facility] Basic Metabolic Profile (BMP )on 09-11-2024 BUN/CRE 28.5 RATIO High 10-20 [facility] Comment on above: Performed By: #### L 500.2500 ####[facility] [address] [place], [address] Calcium [Mass/Vol] 9.5 mg/dL Normal 7.6-11.0 [facility] Comment on above: Performed By: #### L 500.2500 ####[facility] [address] [place], [address] Chloride [Moles/Vol] 96 mmol/L Low 98-108 [facility] Comment on above: Performed By: #### L 500.2500 ####[facility] [address] [place], [address] CO2 [Moles/Vol] 31.1 mmol/L Normal 21.0-32.0 [facility] Comment on above: Performed By: #### L 500.2500 ####[facility] [address] [place], [address] Creatinine [Mass/Vol] 1.01 mg/dL Normal 0.70-1.20 [facility] Comment on above: Performed By: #### L 500.2500 ####[facility] [address] [place], [address] GAP 11 Normal 5-15 [facility] Comment on above: Performed By: #### L 500.2500 ####[facility] [address] [place], [address] GFR/1.73 sq M.predicted among non-blacks MDRD (S/P/Bld) [Vol rate/Area] 58 mL/min/{1.73_m2} Low >60 [facility] Comment on above: Result Comment: mL/m in/1.73m2 CKD-EPI Creatinine Equation (2020) Performed By: #### L 500.2500 ####[facility] [address] [place], [address] Glucose [Mass/Vol] 105 mg/dL High 70-99 [facility] Comment on above: Performed By: #### L 500.2500 ####[facility] [address] [place], [address] Potassium [Moles/Vol] 3.3 mmol/L Normal 3.3-5.1 [facility] Comment on above: Performed By: #### L 500.2500 ####[facility] [address] [place], [address] Sodium [Moles/Vol] 137 mmol/L Normal 133-145 [facility] Comment on above: Performed By: #### L 500.2500 ####[facility] [address] [place], [address] Urea nitrogen [Mass/Vol] 29 mg/dL High 4-19 [facility] Comment on above: Performed By: #### L 500.2500 ####[facility] [address] [place], [address] Body fluid cultureOrdered By : Fahad Cavanaugh on 09-11-2024 Body Fluid Culture Meth. resistant Stap h. aureus Abnormal [facility] Cells Counted Total (Syn fld ) [#]Ordered By: Fahad Cavanaugh on 09-11-2024 Synovial Fluid Total Cells Counted 43.9600 10^3/uL High 0.000-0.000 [facility] Comment on above: This is the Total Nu mber of Nucleated Cell Types in the Body Fluid. Color (Syn fld)Ordered By: Celine Cavanaugh on 09-11-2024 Synovial Fluid Color Yellow Pale Yellow [facility] Gram stainOrdered By: Fahad Cavanaugh on 09-11-2024 Microscopic observation Gram stain Nom (Unsp spec) [facility] Lymphocytes/100 WBC (Bld)Ord ered By: Fahad Cavanaugh on 09-11-2024 Synovial Fluid Lymphocytes 4 % [facility] Monocytes/100 WBC (Syn fld)O rdered By: Fahad Cavanaugh on 09-11-2024 Synovial Fluid Monocytes 2 % [facility] Mononuclear cells Auto (Syn fld) [#/Vol]Ordered By: Fahad Cavanaugh on 09-11-2024 Synovial Fluid Mononuclear WBCs 3.460 10^3/ul [facility] Mononuclear cells/100 WBC (S yn fld)Ordered By: Fahad Cavanaugh on 09-11-2024 Synovial Fluid Mononuclear WBCs % 9.0 % [facility] Neutrophils/100 WBC (Syn fld )Ordered By: Fahad Cavanaugh on 09-11-2024 Synovial Fluid Neutrophils 94 % High 0-25 [facility] Pathologist review Fahad (Unsp spec) [Interp]Ordered By: Fahad Cavanaugh on 09-11-2024 Synovial Fluid Pathologist Comment May follow [facility] Polymorphonuclear cells Auto (Syn fld) [#/Vol]Ordered By: Fahad Cavanaugh on 09-11-2024 Synovial Fluid Polynuclear WBCs 34.879 10^3/uL [facility] Polymorphonuclear cells/100 WBC Auto (Syn fld)Ordered By: Fahad Cavanaugh on 09-11-2024 Synovial Fluid Polynuclear WBCs % 91.0 % [facility] RBC (Syn fld) [#/Vol]Ordered By: Fahad Cavanaugh on 09-11-2024 Synovial Fluid RBC 0.015 10^6/uL High 0-0 [facility] Specimen source Nom (Body fl d)Ordered By: Fahad Cavanaugh on 09-11-2024 Synovial Fluid Source SHOULDER [facility] Viscosity Ql (Syn fld)Ordere d By: Fahad Cavanaugh on 09-11-2024 Synovial Fluid Viscosity Viscous HIGH [facility] WBC Auto (Syn fld) [#/Vol]Or dered By: Fahad Cavanaugh on 09-11-2024 Synovial Fluid WBC 43.6850 10^3/uL High 0.000-0.002 [facility] C-REACTIVE PROTEINon 025 CRP 13.29 mg/dl High 0.00 - 0.90 [facility] Comment on above: Performed By: #### 2 [id number] #### [facility],[address] [place] [address] CBC + DIFFon 09-10-2024 Baso # 0.03 x10EE3/UL Normal 0.00 - 0.10 [facility] Comment on above: Performed By: #### 2 35771 #### [facility],[address] [place] [address] Basophils/100 WBC (Bld) 0.3 % Normal 0.0 - 2.0 [facility] Comment on above: Performed By: #### 2 37677 #### [facility],[address] [place] [address] CBC + DIFF Normal [facility] Comment on above: Result Comment: CBC- COMPLETE BLOOD COUNT Performed By: #### 2 51538 #### [facility],[address] [place] [address] EO # 0.22 x10EE3/UL Normal 0.00 - 0.50 [facility] Comment on above: Performed By: #### 2 05138 #### [facility],[address] [place] [address] Eosinophils/100 WBC (Bld) 2.2 % Normal 0.0 - 7.0 [facility] Comment on above: Performed By: #### 2 75088 #### [facility],[address] [place] [address] Erythrocyte distribution width (RBC) [Ratio] 13.4 % Normal 12.0 - 15.6 [facility] Comment on above: Performed By: #### 2 40406 #### [facility],[address] [place], [place] [address] Hematocrit (Bld) [Volume fraction] 39.5 % Normal 34.0 - 46.0 [facility] Comment on above: Performed By: #### 2 67728 #### [facility],[address] [place] [address] Hemoglobin (Bld) [Mass/Vol] 13.6 g/dL Normal 12.0 - 16.0 [facility] Comment on above: Performed By: #### 2 74755 #### [facility],[address] [place] [address] Lymph # 1.07 x10EE3/UL Normal 0.80 - 2.80 [facility] Comment on above: Performed By: #### 2 51122 #### [facility],[address] [place] [address] Lymphocytes/100 WBC (Bld) 10.6 % Low 20.0 - 45.0 [facility] Comment on above: Performed By: #### 2 10562 #### [facility],[address] [place] [address] MANUAL DIFF N/A Normal [facility] Comment on above: Performed By: #### 2 38291 #### [facility],[address] [place] [address] MCH (RBC) [Entitic mass] 31 pg Normal 27 - 33 [facility] Comment on above: Performed By: #### 2 27618 #### [facility],[address] [place] [address] MCHC 35 X10 3 Normal 32 - 36 [facility] Comment on above: Performed By: #### 2 07859 #### [facility],[address] [place] [address] MCV (RBC) [Entitic vol] 90 fL Normal 80 - 99 [facility] Comment on above: Performed By: #### 2 76219 #### [facility],[address] [place] [address] [place] # 1.00 x10EE3/UL Normal 0.20 - 1.00 [facility] Comment on above: Performed By: #### 2 [id number] #### [facility],[address] [place] [address] 72161 MONOS % 9.9 % Normal 0.0 - 10.0 [facility] Comment on above: Performed By: #### 2 [id number] #### [facility],[address] [place] [address] 37651 Morphology Fahad (Bld) [Interp] N/A Normal [facility] Comment on above: Performed By: #### 2 [id number] #### [facility],[address] [place] [address] 66891 Neut # 7.73 x10EE3/UL High 1.50 - 7.10 [facility] Comment on above: Performed By: #### 2 [id number] #### [facility],[address] [place] [address] 69277 Neutrophils/100 WBC (Bld) 77.0 % High 46.0 - 76.0 [facility] Comment on above: Performed By: #### 2 [id number] #### [facility],[address] [place] [address] 06141 PLATELET 233 x10EE3/UL Normal 150 - 450 [facility] Comment on above: Performed By: #### 2 [id number] #### [facility],[address] [place] [address] 43734 Platelet mean volume (Bld) [Entitic vol] 8.5 fL Normal 6.6 - 10.5 [facility] Comment on above: Result Comment: AUTO MATED DIFFERENTIAL Performed By: #### 2 [id number] #### [facility],[address] [place] [address] 36645 RBC 4.39 x 10EE6/UL Normal 4.10 - 5.30 [facility] Comment on above: Performed By: #### 2 79583 #### [facility],[address] [place] [address] 13505 WBC 10.0 x 10EE3/UL Normal 4.5 - 10.8 [facility] Comment on above: Performed By: #### 2 [id number] #### [facility],[address] [place] [address] 88859 SEDRATEon 09-10-2024 SEDRATE 83 mm/hr High 0 - 30 [facility] Comment on above: Performed By: #### 2 25077 #### [facility],[address] [place] [address] 40069 Absolute lymphocyte countOrd ered By: Kamar Grimes on 10-19-2023 Lymphocytes Auto (Unsp spec) [#/Vol] 1.54 10*3/uL 0.83-4.51 [facility] Automated lymphocyte count a s percentage of total leukocytesOrdered By: Kamar Grimes on 10-19-2023 Lymphocytes/100 WBC Auto (Unsp spec) 25.0 % 19-41 [facility] Basophil percentageOrdered B y: Kamar Grimes on 10-19-2023 Basophils/100 WBC (Bld) 0.6 % 0-1 [facility] Bilirubin [Mass/Vol] 0.40 mg/dL 0.20-1.00 [facility] Comment on above: For patients on eltr ombopag therapy, use of Dimension [place] TBIL is not recommended. Chloride [Moles/Vol] 103 mmol/L 98-107 [facility] Eosinophils/100 WBC (Bld) 2.8 % 0-5 [facility] Glucose [Mass/Vol] 105 mg/dL 74-106 [facility] Comment on above: Fasting Glucose resu lt from 100 to 125 mg/dL suggests IMPAIRED HOMEOSTASIS per A.D.A. criteria. Hemoglobin (Bld) [Mass/Vol] 14.4 g/dL 12.0-15.0 [facility] Monocytes/100 WBC (Bld) 8.1 % 0-[address] [facility] Neutrophils (Bld) [#/Vol] 3.9 10*3/uL 2.0-7.7 [facility] Neutrophils/100 WBC (Bld) 63.0 % 47-70 [facility] Potassium [Moles/Vol] 4.8 mmol/L 3.5-5.1 [facility] Protein [Mass/Vol] 7.5 g/dL 6.4-8.2 [facility] Sodium [Moles/Vol] 139 mmol/L 136-145 [facility] WBC (Bld) [#/Vol] 6.2 10*3/uL 4.4-11.0 [facility] Determination of erythrocyte mean corpuscular volume (MCV)Ordered By: Kamar Grimes on 10-19-2023 MCV (RBC) [Entitic vol] 94.8 fL 81-[address] [facility] Erythrocyte distribution wid th ratioOrdered By: Kamar Grimes on 10-19-2023 Erythrocyte distribution width (RBC) [Ratio] 13.9 % 11.6-14.6 [facility] Erythrocyte distribution wid th standard deviationOrdered By: Kamar Grimes on 10-19-2023 Erythrocyte distribution width (RBC) [Entitic vol] 49.0 fL 35.1-43.9 [facility] Hematocrit Auto (Bld) [Volum e fraction]Ordered By: Kamar Grimes on 10-19-2023 Hematocrit (Bld) [Volume fraction] 46.0 % 37-47 [facility] Immature granulocytes/100 WB C Auto (Bld)Ordered By: Kamar Grimes on 10-19-2023 Immature granulocytes/100 WBC (Bld) 0.500 % 0.0-0.9 [facility] Comment on above: IG% - Immature Granu locytes (promyelocytes, myelocytes and metamyelocytes) > 1% indicates that a LEFT SHIFT is Present. Laboratory - Chemistry and C hemistry - challengeOrdered By: Kamar Grimes on 10-19-2023 Albumin/Globulin [Mass ratio] 1.0 {ratio} 0.9-2.4 [facility] ALP [Catalytic activity/Vol] 121 U/L 45-117 [facility] ALT [Catalytic activity/Vol] 28 U/L 13-56 [facility] CO2 [Moles/Vol] 32.0 mmol/L 21.0-32.0 [facility] Ferritin [Mass/Vol] 72 ng/mL 8-252 [facility] Globulin (S) [Mass/Vol] 3.8 g/dL 2.2-4.[address] [facility] Magnesium [Mass/Vol] 2.0 mg/dL 1.6-2.6 [facility] Urea nitrogen/Creatinine [Mass ratio] 28.6 mg/mg 10-20 [facility] Laboratory - Hematology and Cell countsOrdered By: Kamar Grimes on 10-19-2023 MCH (RBC) [Entitic mass] 29.7 pg 27.0-32.0 [facility] MCHC (RBC) [Mass/Vol] 31.3 g/dL 32-36 [facility] Nucleated RBC/100 WBC (Bld) [Ratio] 0 % 0-5 [facility] Platelet mean volume (Bld) [Entitic vol] 11.8 fL 6.2-12.0 [facility] Platelets (Bld) [#/Vol] 192 10*3/uL 150-450 [facility] No Panel InformationOrdered By: Kamar Grimes on 10-19-2023 Estimated GFR (MDRD) Amer 61 mL/min >60 [facility] Comment on above: GFR Calc Estimated GFR (MDRD) Non-Af Amer 50 mL/min >60 [facility] Comment on above: Non- GFR Calc Urine Microalbumin/Creatinine Ratio 180.8 mg/g CRE <30 [facility] RBC Auto (Bld) [#/Vol]Ordere d By: Kamar Grimes on 10-19-2023 RBC (Bld) [#/Vol] 4.85 10*6/uL 4.2-5.4 [facility] Serum or plasma calcium lisa urement (mass/volume)Ordered By: Kamar Grimes on 10-19-2023 Calcium [Mass/Vol] 9.8 mg/dL 8.5-10.1 [facility] Serum or plasma creatinine m easurement (mass/volume)Ordered By: Kamar Grimes on 10-19-2023 Creatinine [Mass/Vol] 1.12 mg/dL 0.55-1.02 [facility] Comment on above: The validity of the calculated GFR & GFRAA in patients over 70 years has not been determined. Clinical correlation is essential. Serum or plasma thyroid stim ulating hormone (TSH) measurement (units/volume)Ordered By: Kamar Grimes on 10-19-2023 TSH Qn 1.61 uIU/mL 0.358-3.74 [facility] Serum or plasma urea nitroge n measurement (mass/volume)Ordered By: Kamar Grimes on 10-19-2023 Urea nitrogen [Mass/Vol] 32 mg/dL 7-18 [facility] Thin prep Papanicolaou smear with manual screeningOrdered By: Kamar Grimes on 10-19-2023 Thin prep Papanicolaou smear with manual screening 3.7 g/dL 3.2-5.0 [facility] Thin prep Papanicolaou smear with manual screening 25 U/L 15-37 [facility] Thin prep Papanicolaou smear with manual screening 4 5-15 [facility] Thin prep Papanicolaou smear with manual screening 79.0 mg/L NO RANGE EST. [facility] Urine creatinine measurement (mass/volume)Ordered By: Kamar Grimes on 10-19-2023 Creatinine (U) [Mass/Vol] 43.70 mg/dL NO RANGE EST. [facility] Absolute lymphocyte countOrd ered By: Dr. Grimes on 10-18-2022 Lymphocytes Auto (Unsp spec) [#/Vol] 1.84 10*3/uL 0.83-4.51 [facility] Basophil percentageOrdered B y: Dr. Grimes on 10-18-2022 Basophils/100 WBC (Bld) 0.9 % 0-1 [facility] Bilirubin [Mass/Vol] 0.50 mg/dL 0.20-1.00 [facility] Comment on above: For patients on eltr ombopag therapy, use of Dimension [place] TBIL is not recommended. Chloride [Moles/Vol] 106 mmol/L 98-107 [facility] Cholesterol [Mass/Vol] 315 mg/dL <200 [facility] Comment on above: <200 mg/dL Desirable 200-240 mg/dL Borderline >240 mg/dL High Risk Eosinophils/100 WBC (Bld) 3.2 % 0-5 [facility] Glucose [Mass/Vol] 94 mg/dL 74-106 [facility] Neutrophils (Bld) [#/Vol] 4.3 10*3/uL 2.0-7.7 [facility] Neutrophils/100 WBC (Bld) 61.3 % 47-70 [facility] Potassium [Moles/Vol] 4.5 mmol/L 3.5-5.1 [facility] Protein [Mass/Vol] 7.1 g/dL 6.4-8.2 [facility] Sodium [Moles/Vol] 137 mmol/L 136-145 [facility] Triglyceride [Mass/Vol] 246 mg/dL <[address] [facility] Comment on above: The drugs N-Acetylcy steine and Metamizole may falsely depress this assay.Serum Triglycerides Reference Interval Normal <150 mg/dL Borderline high 150 - 199 mg/dL High 200 - 499 mg/dL Very High > or = 500 mg/dL WBC (Bld) [#/Vol] 6.9 10*3/uL 4.4-11.0 [facility] Blood erythrocytes count (nu mber/volume)Ordered By: Dr. Grimes on 10-18-2022 RBC (Bld) [#/Vol] 4.89 10*6/uL 4.2-5.4 [facility] Blood hemoglobin measurement (mass/volume)Ordered By: Dr. Grimes on 10-18-2022 Hemoglobin (Bld) [Mass/Vol] 14.1 g/dL 12.0-15.0 [facility] Blood lymphocytes/100 leukoc ytesOrdered By: Dr. Grimes on 10-18-2022 Lymphocytes/100 WBC (Bld) 26.6 % 19-41 [facility] Blood monocytes/100 leukocyt esOrdered By: Dr. Grimes on 10-18-2022 Monocytes/100 WBC (Bld) 7.4 % 0-10 [facility] Blood platelet mean volumeOr dered By: Dr. Grimes on 10-18-2022 Platelet mean volume (Bld) [Entitic vol] 10.9 fL 6.2-12.0 [facility] Determination of erythrocyte mean corpuscular volume (MCV)Ordered By: Dr. Grimes on 10-18-2022 MCV (RBC) [Entitic vol] 92.6 fL 81-99 [facility] Hematocrit Auto (Bld) [Volum e fraction]Ordered By: Dr. Grimes on 10-18-2022 Hematocrit (Bld) [Volume fraction] 45.3 % 37-47 [facility] Laboratory - Chemistry and C hemistry - challengeOrdered By: Dr. Grimes on 10-18-2022 ALP [Catalytic activity/Vol] 113 U/L 45-117 [facility] ALT [Catalytic activity/Vol] 34 U/L 13-56 [facility] CO2 [Moles/Vol] 27.0 mmol/L 21.0-32.0 [facility] Globulin (S) [Mass/Vol] 3.6 g/dL 2.2-4.[address] [facility] Urea nitrogen/Creatinine [Mass ratio] 24.5 mg/mg 10-20 [facility] Laboratory - Hematology and Cell countsOrdered By: Dr. Grimes on 10-18-2022 Erythrocyte distribution width (RBC) [Entitic vol] 45.0 fL 35.1-43.9 [facility] Erythrocyte distribution width (RBC) [Ratio] 13.4 % 11.6-14.6 [facility] Immature granulocytes/100 WBC (Bld) 0.600 % 0.0-0.9 [facility] Comment on above: IG% - Immature Granu locytes (promyelocytes, myelocytes and metamyelocytes) > 1% indicates that a LEFT SHIFT is Present. MCH (RBC) [Entitic mass] 28.8 pg 27.0-32.0 [facility] Nucleated RBC/100 WBC (Bld) [Ratio] 0 % 0-5 [facility] MCHC Auto (RBC) [Mass/Vol]Or dered By: Dr. Grimes on 10-18-2022 MCHC (RBC) [Mass/Vol] 31.1 g/dL 32-36 [facility] No Panel InformationOrdered By: Dr. Grimes on 10-18-2022 Estimated GFR (MDRD) Amer 79 mL/min >60 [facility] Comment on above: GFR Calc Estimated GFR (MDRD) Non-Af Amer 65 mL/min >60 [facility] Comment on above: Non- GFR Calc Urine Microalbumin/Creatinine Ratio 266.0 mg/g CRE <30 [facility] Vitamin D 25-Hydroxy 27.3 ng/mL [facility] Comment on above: Vitamin D 25(OH) Sta tus Range Deficiency <20 ng/mL (50nmol/L) Insufficiency 20 - 30 ng/mL (50 - 75 nmol/L) Sufficiency 30 - 100 ng/mL (75 - 250 nmol/L) Toxicity >100 ng/mL (>250 nmol/L) Platelets bldOrdered By: Dr. Grimes on 10-18-2022 Platelets (Bld) [#/Vol] 196 10*3/uL 150-450 [facility] Serum or plasma albumin lisa urement (mass/volume)Ordered By: Dr. Grimes on 10-18-2022 Albumin [Mass/Vol] 3.5 g/dL 3.2-5.0 [facility] Serum or plasma albumin/glob ulin mass ratioOrdered By: Dr. Grimes on 10-18-2022 Albumin/Globulin [Mass ratio] 1.0 {ratio} 0.9-2.4 [facility] Serum or plasma calcium lisa urement (mass/volume)Ordered By: Dr. Grimes on 10-18-2022 Calcium [Mass/Vol] 9.2 mg/dL 8.5-10.1 [facility] Serum or plasma cholesterol in HDL measurement (mass/volume)Ordered By: Dr. Grimes on 10-18-2022 Cholesterol in HDL [Mass/Vol] 56 mg/dL >40 [facility] Comment on above: The drugs N-Acetylcy steine and Metamizole may falsely depress this assay. Reference Range HDL <40 mg/dL Low HDL Cholesterol HDL >or= 60 mg/dL High HDL Cholesterol Serum or plasma cholesterol in VLDL measurement (mass/volume)Ordered By: Dr. Grimes on 10-18-2022 Cholesterol in VLDL [Mass/Vol] 49 mg/dL 5-40 [facility] Serum or plasma creatinine m easurement (mass/volume)Ordered By: Dr. Grimes on 10-18-2022 Creatinine [Mass/Vol] 0.90 mg/dL 0.55-1.02 [facility] Comment on above: The validity of the calculated GFR & GFRAA in patients over 70 years has not been determined. Clinical correlation is essential. Serum or plasma ferritin bubba surement (mass/volume)Ordered By: Dr. Grimes on 10-18-2022 Ferritin [Mass/Vol] 65 ng/mL 8-252 [facility] Serum or plasma low density lipoprotein (LDL) cholesterol measurement (mass/volume)Ordered By: Dr. Grimes on 10-18-2022 Cholesterol in LDL [Mass/Vol] 210 mg/dL 0-130 [facility] Serum or plasma urea nitroge n measurement (mass/volume)Ordered By: Dr. Grimes on 10-18-2022 Urea nitrogen [Mass/Vol] 22 mg/dL 7-18 [facility] Thin prep Papanicolaou smear with manual screeningOrdered By: Dr. Grimes on 10-18-2022 Thin prep Papanicolaou smear with manual screening 25 U/L 15-37 [facility] Thin prep Papanicolaou smear with manual screening 4 5-15 [facility] Thin prep Papanicolaou smear with manual screening 104.0 mg/L NO RANGE EST. [facility] Urine creatinine measurement (mass/volume)Ordered By: Dr. Grimes on 10-18-2022 Creatinine (U) [Mass/Vol] 39.10 mg/dL NO RANGE EST. [facility] Whole blood hemoglobin A1c/t otal hemoglobin ratio (mass fraction)Ordered By: Dr. Grimes on 10-18-2022 HbA1c (Bld) [Mass fraction] 5.6 % 3.8-5.6 [facility] Comment on above: Normal < 5.7 % Predi abetic 5.7 - 6.4 % Diabetic >or= 6.5 % Please note range changes. No Panel Informationon 04-20 Stool Pancreatic Elastase > 500 >200 [facility] Work Phone: Comment on above: Result Units: ug Estephania st./g Severe Pancreatic Insufficiency: <100 Moderate Pancreatic Insufficiency: 100 - 200 Normal: >200Performed at: BN - [facility] [address] [id number] Director: Javier Christie MD, Phone: [phone] Basophil percentageon 2021 Bilirubin [Mass/Vol] 0.70 mg/dL 0.20-1.00 [facility] Work Phone: Comment on above: For patients on eltr ombopag therapy, use of Dimension [place] TBIL is not recommended. Chloride [Moles/Vol] 100 mmol/L 98-107 [facility] Work Phone: Cholesterol [Mass/Vol] 286 mg/dL <200 [facility] Work Phone: Comment on above: <200 mg/dL Desirable 200-240 mg/dL Borderline >240 mg/dL High Risk Glucose [Mass/Vol] 101 mg/dL 74-106 [facility] Work Phone: Comment on above: Fasting Glucose resu lt from 100 to 125 mg/dL suggests IMPAIRED HOMEOSTASIS per A.D.A. criteria. Potassium [Moles/Vol] 3.5 mmol/L 3.5-5.1 [facility] Work Phone: Protein [Mass/Vol] 7.5 g/dL 6.4-8.2 [facility] Work Phone: Sodium [Moles/Vol] 137 mmol/L 136-145 [facility] Work Phone: Triglyceride [Mass/Vol] 202 mg/dL <199 [facility] Work Phone: Comment on above: The drugs N-Acetylcy steine and Metamizole may falsely depress this assay.Serum Triglycerides Reference Interval Normal <150 mg/dL Borderline high 150 - 199 mg/dL High 200 - 499 mg/dL Very High > or = 500 mg/dL Laboratory - Chemistry and C hemistry - challengeon 04-19-2022 Albumin [Mass/Vol] 4.0 g/dL 2.9-4.4 [facility] Work Phone: ALP [Catalytic activity/Vol] 107 U/L 45-117 [facility] Work Phone: ALT [Catalytic activity/Vol] 35 U/L 13-56 [facility] Work Phone: CO2 [Moles/Vol] 31.0 mmol/L 21.0-32.0 [facility] Work Phone: Cobalamin (Vitamin B12) [Mass/Vol] 405 pg/mL 211-911 [facility] Work Phone: Globulin (S) [Mass/Vol] 3.6 g/dL 2.2-4.2 [facility] Work Phone: Urea nitrogen/Creatinine [Mass ratio] 16.6 mg/mg 10-20 [facility] Work Phone: No Panel Informationon 04-19 Addendum Document Comment . [facility] Work Phone: Comment on above: The SPE pattern appe ars unremarkable. Evidence ofmonoclonal protein is not apparent.Performed at: [address] [id number] Director: Jorden Figueroa PhD, Phone: [phone] Qpner-2-Tvejqsgeu 0.3 g/dL 0.0-0.4 [facility] Work Phone: Jffjm-5-Vlqdleqsu 0.8 g/dL 0.4-1.0 [facility] Work Phone: Anti-Nuclear Antibody Screen Negative Negative [facility] Work Phone: Comment on above: Performed at: - [facility] [address] [id number] Director: Jorden Figueroa PhD, Phone: [phone] Estimated GFR (MDRD) Amer 73 mL/min >60 [facility] Work Phone: Comment on above: GFR Calc Estimated GFR (MDRD) Non-Af Amer 60 mL/min >60 [facility] Work Phone: Comment on above: Non- GFR Calc Gamma Globulins 1.0 g/dL 0.4-1.8 [facility] Work Phone: Urine Microalbumin/Creatinine Ratio 94.8 mg/g CRE <30 [facility] Work Phone: Protein Fractions Elph [Inte rp]on 04-19-2022 Protein Fractions [Interp] Comment . [facility] Work Phone: Comment on above: Protein electrophore sis scan will follow via computer,mail, or mail order clerk delivery. Serum albumin to globulin ra bernard by protein electrophoresison 04-19-2022 Albumin/Globulin Elph [Mass ratio] 1.2 0.7-1.7 [facility] Work Phone: Serum globulin measurement ( mass/volume)on 04-19-2022 Globulin (S) [Mass/Vol] 3.3 g/dL 2.2-3.9 [facility] Work Phone: Serum or plasma albumin lisa urement (mass/volume)on 04-19-2022 Albumin [Mass/Vol] 3.9 g/dL 3.2-5.0 [facility] Work Phone: Serum or plasma albumin/glob ulin mass ratioon 04-19-2022 Albumin/Globulin [Mass ratio] 1.1 {ratio} 0.9-2.4 [facility] Work Phone: Serum or plasma beta globuli n measurement by electrophoresis (mass/volume)on 04-19-2022 Beta globulin Elph [Mass/Vol] 1.2 g/dL 0.7-1.3 [facility] Work Phone: Serum or plasma calcium lisa urement (mass/volume)on 04-19-2022 Calcium [Mass/Vol] 9.7 mg/dL 8.5-10.1 [facility] Work Phone: Serum or plasma cholesterol in HDL measurement (mass/volume)on 04-19-2022 Cholesterol in HDL [Mass/Vol] 59 mg/dL >40 [facility] Work Phone: Comment on above: The drugs N-Acetylcy steine and Metamizole may falsely depress this assay. Reference Range HDL <40 mg/dL Low HDL Cholesterol HDL >or= 60 mg/dL High HDL Cholesterol Serum or plasma cholesterol in VLDL measurement (mass/volume)on 04-19-2022 Cholesterol in VLDL [Mass/Vol] 40 mg/dL 5-40 [facility] Work Phone: Serum or plasma creatinine m easurement (mass/volume)on 04-19-2022 Creatinine [Mass/Vol] 0.96 mg/dL 0.55-1.02 [facility] Work Phone: Comment on above: The validity of the calculated GFR & GFRAA in patients over 70 years has not been determined. Clinical correlation is essential. Serum or plasma folate measu rement (mass/volume)on 04-19-2022 Folate [Mass/Vol] 33.60 ng/mL 3.1-55.4 [facility] Work Phone: Serum or plasma low density lipoprotein (LDL) cholesterol measurement (mass/volume)on 04-19-2022 Cholesterol in LDL [Mass/Vol] 187 mg/dL 0-130 [facility] Work Phone: Serum or plasma urea nitroge n measurement (mass/volume)on 04-19-2022 Urea nitrogen [Mass/Vol] 16 mg/dL 7-18 [facility] Work Phone: Thin prep Papanicolaou smear with manual screeningon 04-19-2022 Thin prep Papanicolaou smear with manual screening 26 U/L 15-37 [facility] Work Phone: Thin prep Papanicolaou smear with manual screening 6 5-15 [facility] Work Phone: Thin prep Papanicolaou smear with manual screening 58.4 mg/L NO RANGE EST. [facility] Work Phone: Thin prep Papanicolaou smear with manual screening See comment [facility] Work Phone: Comment on above: Result: Not Observed Total protein bloodon 2021 Protein [Mass/Vol] 7.3 g/dL 6.0-8.5 [facility] Work Phone: Urine creatinine measurement (mass/volume)on 04-19-2022 Creatinine (U) [Mass/Vol] 61.60 mg/dL NO RANGE EST. [facility] Work Phone: Otheron 12-22-2006 CONVERTED ELECTRONIC SIGNATURE FERNANDO MARLEY M.D., PATHOLOGIST (Electronic signature on file) Final Signed Out: 12/22/2006 17:10 [facility] CONVERTED FINAL DIAGNOSIS RIGHT HUMERAL HEAD, EXCISION - DEGENERATIVE ARTHRITIS. [facility] CONVERTED ORDERING PROVIDER Ordering Provider: SIXTO NELSON [facility] Vital Signs Date Time Vital Sign Value Performing Clinician Facility 04-23-2025 16:45-0400 Body temperature 98.3 [degF] Dr. Kamar Grimes MD Work Phone: [facility] 04-23-2025 16:45-0400 Diastolic blood pressure 80 mm[Hg] Dr. Kamar Grimes MD Work Phone: [facility] 04-23-2025 16:45-0400 Heart rate 96 /min Dr. Kamar Grimes MD Work Phone: [facility] 04-23-2025 16:45-0400 Inhaled oxygen flow rate 3 L/min Dr. Kamar Grimes MD Work Phone: [facility] 04-23-2025 16:45-0400 Respiratory rate 18 /min Dr. Kamar Grimes MD Work Phone: [phone] [place] [address] 04-23-2025 16:45-0400 SaO2% (BldA) [Mass fraction] 98 % Dr. Kamar Grmies MD Work Phone: [phone] [place] [address] 04-23-2025 16:45-0400 Systolic blood pressure 132 mm[Hg] Dr. Kamar Grimes MD Work Phone: 1(760)279-288271 [place] [address] 04-23-2025 03:23-0400 Body mass index (BMI) [Ratio] 36.9 kg/m2 Dr. Kamar Grimes MD Work Phone: 3(425)373-260771 [place] [address] 04-23-2025 03:23-0400 Body weight 107.[address] Kamar Grimes MD Work Phone: 4(861)590-079571 [place] [address] 04-22-2025 15:38-0400 Body height 170.[address] Kamar Grimes MD Work Phone: 1(766)671-915871 [place] [address] 04-16-2025 16:49-0400 Inhaled oxygen flow rate 2 L/min Dr. Kamar Grimes MD Work Phone: 1(162)233-879571 [place] [address] 04-16-2025 16:49-0400 SaO2% (BldA) [Mass fraction] 94 % Dr. Kamar Grimes MD Work Phone: 9(188)438-148271 [place] [address] 04-16-2025 16:00-0400 Heart rate 86 /min Dr. Kamar Grimes MD Work Phone: 5(622)693-073571 [place] [address] 04-16-2025 16:00-0400 Respiratory rate 20 /min Dr. Kamar Grimes MD Work Phone: 2(349)398-621771 [place] [address] 04-16-2025 15:27-0400 Body mass index (BMI) [Ratio] 36 kg/m2 Dr. Kamar Grimes MD Work Phone: 7(708)345-665771 [place] [address] 04-16-2025 15:27-0400 Body weight 104.[address] Kamar Grimes MD Work Phone: 2(806)259-538571 [place] [address] 04-16-2025 15:27-0400 Diastolic blood pressure 71 mm[Hg] Dr. Kamar Grimes MD Work Phone: 2(961)013-493108 [place] [address] 04-16-2025 15:27-0400 Systolic blood pressure 105 mm[Hg] Dr. Kamar Grimes MD Work Phone: 5(971)612-157971 [place] [address] 03-26-2025 14:00-0400 Diastolic blood pressure 105 mm[Hg] Dr. Kamar Grimes MD Work Phone: 5(223)937-169671 [place] [address] 03-26-2025 14:00-0400 Heart rate 96 /min Dr. Kamar Grimes MD Work Phone: 7(021)512-476871 [place] [address] 03-26-2025 14:00-0400 Inhaled oxygen flow rate 2 L/min Dr. Kamar Grimes MD Work Phone: 5(750)978-099671 [place] [address] 03-26-2025 14:00-0400 Respiratory rate 20 /min Dr. Kamar Grimes MD Work Phone: 3(296)209-414371 [place] [address] 03-26-2025 14:00-0400 SaO2% (BldA) [Mass fraction] 93 % Dr. Kamar Grimes MD Work Phone: 0(783)886-024371 [place] [address] 03-26-2025 14:00-0400 Systolic blood pressure 140 mm[Hg] Dr. Kamar Grimes MD Work Phone: 7(509)227-179371 [place] [address] 03-26-2025 09:28-0400 Body temperature 97.9 [degF] Dr. Kamar Grimes MD Work Phone: 6(711)188-323171 [place] [address] 03-26-2025 03:09-0400 Body mass index (BMI) [Ratio] 40.4 kg/m2 Dr. Kamar Grimes MD Work Phone: 1(113)944-737971 [place] [address] 03-26-2025 03:09-0400 Body weight [address] Kamar Grimes MD Work Phone: 5(157)070-864571 [place] [address] 03-24-2025 13:04-0400 Body height 170.[address] Kamar Grimes MD Work Phone: 9(190)210-087408 [place] [address] 03-20-2025 08:00-0400 Inhaled oxygen concentration 25 % Dr. Kamar Grimes MD Work Phone: 1(791)682-721871 [place] [address] 03-19-2025 06:45-0400 Diastolic blood pressure 66 mm[Hg] Dr. Kamar Grimes MD Work Phone: 2(582)415-904071 [place] [address] 03-19-2025 06:45-0400 Systolic blood pressure 90 mm[Hg] Dr. Kamar Grimes MD Work Phone: 0(984)519-478471 [place] [address] 03-19-2025 06:00-0400 Body temperature 100.1 [degF] Dr. Kamar Grimes MD Work Phone: 7(508)329-200171 [place] [address] 03-19-2025 06:00-0400 Heart rate 97 /min Dr. Kamar Grimes MD Work Phone: 4(579)246-184371 [place] [address] 03-19-2025 06:00-0400 Inhaled oxygen concentration 40 % Dr. Kamar Grimes MD Work Phone: 5(982)364-899671 [place] [address] 03-19-2025 06:00-0400 Respiratory rate 14 /min Dr. Kamar Grimes MD Work Phone: 6(356)130-918871 [place] [address] 03-19-2025 06:00-0400 SaO2% (BldA) [Mass fraction] 97 % Dr. Kamar Grimes MD Work Phone: 9(231)042-327571 [place] [address] 03-19-2025 05:06-0400 Body mass index (BMI) [Ratio] 38.6 kg/m2 Dr. Kamar Grimes MD Work Phone: 6(508)969-694371 [place] [address] 03-19-2025 05:06-0400 Body weight 111.[address] Kamar Grimes MD Work Phone: 8(156)882-860771 [place] [address] 03-18-2025 20:58-0400 Body height [address] Kamar Girmes MD Work Phone: 3(561)743-573471 [place] [address] 03-18-2025 20:09-0400 Body temperature 90.4 [degF] Dr. Kamar Grimes MD Work Phone: 6(593)084-150071 [place] [address] 03-18-2025 20:09-0400 Diastolic blood pressure 13 mm[Hg] Dr. Kamar Grimes MD Work Phone: [facility] 03-18-2025 20:09-0400 Heart rate 63 /min Dr. Kamar Grimes MD Work Phone: [facility] 03-18-2025 20:09-0400 Respiratory rate 14 /min Dr. Kamar Grimes MD Work Phone: 7(900)137-090371 [place] [address] 03-18-2025 20:09-0400 SaO2% (BldA) [Mass fraction] 95 % Dr. Kamar Grimes MD Work Phone: 0(241)410-698408 [place] [address] 03-18-2025 20:09-0400 Systolic blood pressure 32 mm[Hg] Dr. Kamar Grimes MD Work Phone: 2(404)467-888371 [place] [address] 03-18-2025 20:00-0400 Inhaled oxygen concentration 40 % Dr. Kamar Grimes MD Work Phone: 8(757)754-314971 [place] [address] 03-18-2025 17:48-0400 Inhaled oxygen flow rate 4 L/min Dr. Kamar Grimes MD Work Phone: 9(751)049-752206 [address] 03-18-2025 14:56-0400 Body height 170.[address] Kamar Grimes MD Work Phone: 4(520)318-500071 [place] [address] 03-18-2025 14:56-0400 Body mass index (BMI) [Ratio] 38.7 kg/m2 Dr. Kamar Grimes MD Work Phone: 2(146)511-827471 [place] [address] 03-18-2025 14:56-0400 Body weight 112.[address] Kamar Grimes MD Work Phone: [facility] 10-08-2024 07:58-0400 Heart rate 80 /min Dr. Kamar Grimes MD Work Phone: [facility] 10-08-2024 06:30-0400 SaO2% (BldA) [Mass fraction] 95 % Dr. Kamar Grimes MD Work Phone: 6(037)311-997308 [place] [address] 10-07-2024 21:36-0400 Diastolic blood pressure 78 mm[Hg] Dr. Kamar Grimes MD Work Phone: 5(609)511-257408 [place] [address] 10-07-2024 21:36-0400 Systolic blood pressure 147 mm[Hg] Dr. Kamar Grimes MD Work Phone: 8(936)338-181171 [place] [address] 10-07-2024 20:02-0400 Body temperature 98.2 [degF] Dr. Kamar Grimes MD Work Phone: 1(630)525-376271 [place] [address] 10-07-2024 20:02-0400 Respiratory rate 16 /min Dr. Kamar Grimes MD Work Phone: 0(611)245-731771 [place] [address] 10-02-2024 14:29-0400 Body height 170.[address] Kamar Grimes MD Work Phone: 0(542)952-188171 [place] [address] 10-02-2024 14:29-0400 Body weight 106.[address] Kamar Grimes MD Work Phone: 6(892)423-620971 [place] [address] 10-01-2024 13:00-0400 Body mass index (BMI) [Ratio] 36.8 kg/m2 Dr. Kamar Grimes MD Work Phone: 2(607)867-354871 [place] [address] 09-18-2024 08:25-0400 Heart rate 87 /min Dr. Kamar Grimes MD Work Phone: 3(654)936-590171 [place] [address] 09-18-2024 07:25-0400 Respiratory rate 14 /min Dr. Kamar Grimes MD Work Phone: 2(820)401-879771 [place] [address] 09-18-2024 07:25-0400 SaO2% (BldA) [Mass fraction] 90 % Dr. Kamar Grimes MD Work Phone: 2(915)472-507971 [place] [address] 09-18-2024 07:20-0400 Body temperature 97.7 [degF] Dr. Kamar Grimes MD Work Phone: 7(369)097-883771 [place] [address] 09-18-2024 07:20-0400 Diastolic blood pressure 87 mm[Hg] Dr. Kamar Grimes MD Work Phone: 6(097)391-894771 [place] [address] 09-18-2024 07:20-0400 Systolic blood pressure 160 mm[Hg] Dr. Kamar Grimes MD Work Phone: 4(198)194-307971 [place] [address] 09-16-2024 14:49-0400 Inhaled oxygen flow rate 2 L/min Dr. Kamar Grimes MD Work Phone: [facility] 09-13-2024 18:26-0400 Body height 170.[address] Kamar Grimes MD Work Phone: [facility] 09-13-2024 18:26-0400 Body mass index (BMI) [Ratio] 36.3 kg/m2 Dr. Kamar Grimes MD Work Phone: [facility] 09-13-2024 18:26-0400 Body weight 105.[address] Kamar Grimes MD Work Phone: [facility] 05-05-2022 15:52-0400 Body height 167.64 cm [facility] Work Phone: Encounters Encounter Date Encounter Type Care Provider Facility Start: 05-08-2025 ambulatory Katrina Gujohna OLS Facili ty:[facility] Start: 04-29-2025 ambulatory Katrina Gudla OLS Facili ty:[facility] Start: 04-24-2025 ambulatory Katrina Gudla OLS Facili ty:[facility] Start: 04-24-2025 Dr. Katrina Berkowitz MD -[facility] Start: 04-23-2025 Dr. Garfield Pierson MD -[facility] Work Phone: Start: 04-22-2025 Dr. Garfield Pierson MD -[facility] Work Phone: Start: 04-21-2025 ambulatory Sixto V Sibilia Facili ty:[facility] Start: 04-21-2025 Dr. Garfield Pierson MD -[facility] Work Phone: Start: 04-20-2025 Dr. Garfield Pierson MD -[facility] Work Phone: Start: 04-19-2025 Dr. Garfield Pierson MD -[facility] Work Phone: Start: 04-18-2025 ambulatory [facility] Fac [facility] Start: 04-18-2025 End: 04-23-2025 Evaluation and management of inpatient Dr. Kamar Grimes MD Work Phone: -Progressive Care Unit Start: 04-18-2025 End: 04-23-2025 Dr. Garfield Pierson MD -Progressive Care U nit Work Phone: Start: 04-16-2025 End: 04-16-2025 Dr. Kamar Grimes MD -Laboratory Work Phone: Start: 04-16-2025 End: 04-16-2025 Dr. Mike Reddy MD -[facility] Work Phone: Start: 04-16-2025 End: 04-16-[address] Kamar Grimes MD Work Phone: -[facility] Start: 04-16-2025 End: 04-16-2025 ambulatory Kamar Grmies Facility:[facility] Start: 04-09-2025 End: 04-09-2025 Dr. Kamar Grimes MD -Laboratory [facility] Start: 04-09-2025 End: 04-09-2025 ambulatory Kamar Grimes Facility:[facility] Start: 03-26-2025 Dr. Karla Bustamante DO -[facility] Work Phone: Start: 03-25-2025 Dr. Karla Bustamante DO -[facility] Work Phone: Start: 03-24-2025 Dr. Karla Bustamante DO -[facility] Work Phone: Start: 03-23-2025 Dr. Oitlia Hernandez MD - [facility] Work Phone: Start: 03-22-2025 Dr. Otilia Hernandez MD - [facility] Work Phone: Start: 03-21-2025 Dr. Otilia Hernandez MD - [facility] Work Phone: Start: 03-21-2025 Dr. Antwan Gardner DO -[facility] Start: 03-20-2025 Dr. Otilia Hernandez MD - [facility] Work Phone: Start: 03-20-2025 Dr. Antwan Gardner DO -[facility] Start: 03-19-2025 Dr. Otilia Hernandez MD - [facility] Work Phone: Start: 03-19-2025 ambulatory Saul Kearney Facility:[facility] Start: 03-19-2025 Dr. Saul Kearney MD -[facility] Start: 03-18-2025 Dr. Saul Kearney MD -[facility] Work Phone: Start: 03-18-2025 ambulatory Karla Bustamante Facility:[facility] Start: 03-18-2025 End: 03-26-2025 Evaluation and management of inpatient Dr. Emili Lee MD -Intensive Care Unit Work Phone: Start: 03-18-2025 End: 03-26-2025 Dr. Karla Bustamante DO -[facility] Work Phone: Start: 03-17-2025 End: 03-17-[address] Kamar Grimes MD Work Phone: -Cat [facility] Start: 03-17-[address] Kamar Grimes MD -[facility] Work Phone: Start: 03-17-2025 End: 03-17-2025 Dr. Kamar Grimes MD -Cat Scan [facility] Work Phone: Start: 03-17-2025 End: 03-17-2025 ambulatory Kamar Grimes Facility:[facility] Start: 03-10-2025 End: 03-10-[address] Kamar Grimes MD Work Phone: -Laboratory [place] Start: 03-10-2025 End: 03-10-[address] Kamar Grimes MD -Laboratory [place] Work Phone: Start: 03-10-2025 End: 03-10-2025 Dr. Kamar Grimes MD -Laboratory [place] Work Phone: Start: 03-10-2025 End: 03-10-2025 ambulatory [facility] Facility:[facility] Start: 03-04-2025 Non-patient / Non-visit Dr. Carlene greco MD -[facility] Start: 03-04-2025 End: 03-04-[address] Kamar Grimes MD Work Phone: -Cardiovascular Services Start: 03-04-2025 End: 03-04-[address] Kamar Grimes MD -Cardiovascular Services Work Phone: Start: 03-04-2025 End: 03-04-2025 Dr. Carlene Salazar MD -[facility] Start: 03-04-2025 End: 03-04-2025 ambulatory [facility] Facility:[facility] Start: 02-10-2025 End: 02-10-[address] Kamar Grimes MD Work Phone: -Laboratory [place] Start: 02-10-2025 End: 02-10-[address] Kamar Grimes MD -Laboratory [place] Work Phone: Start: 02-10-2025 End: 02-10-2025 Dr. Kamar Grimes MD -Laboratory [place] Work Phone: Start: 02-10-2025 End: 02-10-2025 ambulatory [facility] Facility:[facility] Start: 10-01-2024 ambulatory [facility] Facility :[facility] Start: 09-18-2024 End: 10-08-2024 Evaluation and management of inpatient Dr. Rodrigo Sanches MD -Transitional Care Unit Start: 09-18-2024 Encounter for other preprocedural examination [facility] Start: 09-18-2024 Non-patient / Non-visit Dr. Mikel Jiang [facility] Work Phone: Start: 09-17-2024 Non-patient / Non-visit Dr. Mikel Jiang [facility] Work Phone: Start: 09-16-2024 Non-patient / Non-visit Dr. Mikel Jiang [facility] Work Phone: Start: 09-15-2024 Non-patient / Non-visit Dr. Emili mora MD -[place] Work Phone: Start: 09-14-2024 ambulatory Kamar Jefferson Facility:[facility] Start: 09-14-2024 End: 09-18-2024 Evaluation and management of inpatient Dr. Fahda Cavanaugh MD -[facility] 3 Work Phone: Start: 09-14-2024 Non-patient / Non-visit Dr. Emili mora MD -[place] Work Phone: Start: 09-13-2024 Non-patient / Non-visit Dr. Cynthia Garcia [facility] Work Phone: Start: 09-13-2024 [facility] Start: 09-12-2024 End: 09-12-2024 ambulatory [facility] Facility:[facility] Start: 09-12-2024 End: 09-12-2024 Non-patient / Non-visit Dr. Tejal Holly MD -[facility] Work Phone: Start: 09-10-2024 End: 09-10-2024 ambulatory [facility] Start: 10-19-2023 End: 10-19-2023 ambulatory [facility] Work Phone: Start: 10-19-2023 End: 10-19-2023 Patient encounter procedure [facility] Start: 10-18-2022 End: 10-18-2022 ambulatory [facility] Work Phone: Start: 10-18-2022 End: 10-18-2022 Patient encounter procedure [facility] Start: 05-05-2022 End: 05-05-2022 ambulatory [facility] Work Phone: Start: 05-05-2022 End: 05-05-2022 Patient encounter procedure [facility]-Outpatient Bone Densitometry Start: 04-20-2022 End: 04-20-2022 ambulatory [facility] Work Phone: Start: 04-20-2022 End: 04-20-2022 Patient encounter procedure [facility]-Laboratory, Specimen Start: 04-19-2022 End: 04-19-2022 ambulatory [facility] Work Phone: Start: 04-19-2022 End: 04-19-2022 Patient encounter procedure [facility]-Laboratory, [place] [facility] Start: 11-25-2021 End: 11-25-2021 Discharged Recurring [facility]-Physical Therapy Start: 12-18-2006 End: 12-18-2006 Patient encounter procedure Sixto Nelson Work Phone: [facility] Start: 12-18-2006 Results Only Sixto Brock julian Work Phone: [facility] Procedures Date Procedure Procedure Detail Performing [...] Start: 04-20-[address] Kamar Griems MD Work Phone: Start: 04-20-2025 Urnls dip [...] of upper limb wit hout contrast Dr. aKmar Grimes MD Work Phone: Start: 03-19-2025 Measurement [...] 03-18-2025 Respiratory microbia l culture Dr. Kamar rGimes MD Work Phone: Start: 03-18-2025 Urine culture [...] Activity Detail Author Start: 01-26-2026 Colonoscopy COLONOSCOPY [facility] Start: 05-08-2025 -[facility] Start: 04-29-2025 -[facility] Start: 04-24-2025 -[facility] Start: 04-23-2025 -[facility] Work Phone: Start: 04-23-2025 Patient discharge [facility] Start: 04-22-2025 -[facility] Work Phone: Start: 04-22-2025 Referral to service [facility] Start: 04-21-2025 -[place] [facility] Work Phone: Start: 04-20-2025 Legionella pneumophila antigen assay [facility] Start: 04-20-2025 Streptococcus pneumoniae antigen assay [facility] Start: 04-20-2025 Urine culture [facility] Start: 04-20-2025 -[facility] Work Phone: Start: 04-19-2025 Following clinical pathway protocol [facility] Start: 04-19-2025 Referral to service [facility] Start: 04-19-2025 Catheterization of vein [facility] Start: 04-19-2025 Insertion of catheter into peripheral vein [facility] Start: 04-19-2025 Measuring intake and output [facility] Start: 04-19-2025 Providing care according to standard [facility] Start: 04-19-2025 Vital signs measurements [facility] Start: 04-19-2025 [facility] Start: 04-19-2025 Plain chest X-ray [facility] Start: 04-19-2025 Consultation [facility] Start: 04-19-2025 Bacterial nucleic acid assay [facility] Start: 04-19-2025 Blood culture [facility] Start: 04-19-2025 -[facility] Work Phone: Start: 04-19-2025 Following clinical pathway protocol [facility] Start: 04-18-2025 Referral to international controller [facility] Start: 04-18-2025 Ambulation without limitation [facility] Start: 04-18-2025 Assessment of risk of venous thromboembolism [facility] Start: 04-18-2025 Insertion of catheter into peripheral vein [facility] Start: 04-18-2025 Measuring intake and output [facility] Start: 04-18-2025 Oxygen therapy [facility] Start: 04-18-2025 Providing care according to standard [facility] Start: 04-18-2025 Referral for physical therapy [facility] Start: 04-18-2025 Referral to occupational therapist [facility] Start: 04-18-2025 Referral to service [facility] Start: 04-18-2025 [facility] Start: 04-18-2025 Admission procedure [facility] Start: 04-18-2025 End: 04-23-2025 -Progressive Care Unit Work Phone: Start: 04-18-2025 Patient referral to dietitian [facility] Start: 04-16-2025 End: 04-16-2025 Evaluation of diagnostic study results [facility] Start: 03-26-2025 [facility] Start: 03-26-2025 Patient discharge [facility] Start: 03-26-2025 Referral to service [facility] Start: 03-25-2025 -[facility] Work Phone: Start: 03-22-2025 Care planning and problem solving actions [facility] Start: 03-22-2025 [facility] Start: 03-20-2025 End: 03-21-2025 [facility] Start: 03-20-2025 Oxygen therapy [facility] Start: 03-20-2025 [facility] Start: 03-19-2025 Airway suction technique [facility] Start: 03-19-2025 Respiratory therapy [facility] Start: 03-19-2025 Consultation [facility] Start: 03-19-2025 Referral for physical therapy [facility] Start: 03-19-2025 Referral to occupational therapist [facility] Start: 03-19-2025 Weaning from mechanically assisted ventilation [facility] Start: 03-19-2025 Consultation for treatment [facility] Start: 03-18-2025 Creatine kinase [Enzymatic activity/volume] in Serum or Plasma [facility] Start: 03-18-2025 Triglycerides measurement [facility] Start: 03-18-2025 Airway suction technique [facility] Start: 03-18-2025 Following clinical pathway protocol [facility] Start: 03-18-2025 Maintenance of invasive device [facility] Start: 03-18-2025 Assessment of risk of venous thromboembolism [facility] Start: 03-18-2025 Catheterization of vein [facility] Start: 03-18-2025 Consultation [facility] Start: 03-18-2025 Continuous pulse oximetry [facility] Start: 03-18-2025 Creatinine [Mass/volume] in Urine collected for unspecified duration [facility] Start: 03-18-2025 Determination of Giang Agitation Sedation Scale (RASS) score with assessment for d [facility] Start: 03-18-2025 Electrolytes measurement, urine [facility] Start: 03-18-2025 Elevation of head of bed [facility] Start: 03-18-2025 Inhalation therapy procedure [facility] Start: 03-18-2025 Insertion of catheter into peripheral vein [facility] Start: 03-18-2025 Measuring intake and output [facility] Start: 03-18-2025 Mouth care [facility] Start: 03-18-2025 Notification of physician [facility] Start: 03-18-2025 Osmolality of Urine [facility] Start: 03-18-2025 Providing care according to standard [facility] Start: 03-18-2025 Referral to service [facility] Start: 03-18-2025 Respiratory pathogens DNA and RNA panel - Respiratory specimen by RANJIT with probe detection [facility] Start: 03-18-2025 Taking nasal swab [facility] Start: 03-18-2025 Tracheostomy care [facility] Start: 03-18-2025 Trial for daily interruption of sedation during mechanically assisted ventilation [facility] Start: 03-18-2025 Urea nitrogen measurement, urine [facility] Start: 03-18-2025 Vital signs measurements [facility] [facility] Start: 03-18-2025 [facility] Start: 03-18-2025 Airway suction technique [facility] Start: 03-18-2025 Respiratory therapy [facility] Start: 03-18-2025 Verification routine [facility] Start: 03-18-2025 Admission procedure [facility] Start: 03-18-2025 End: 03-26-2025 -Progressive Care Unit Work Phone: Start: 03-18-2025 End: 03-19-2025 [facility] Start: 03-18-2025 Bacteria identified in Blood by Culture Blood Culture [facility] Start: 03-18-2025 Bacteria identified in Urine by Culture Urine Culture [facility] Start: 03-18-2025 Microscopic observation [Identifier] in Unspecified specimen by Gram stain [facility] Start: 03-18-2025 Respiratory Culture Respiratory Culture [facility] Start: 03-18-2025 Electrolytes measurement, urine [facility] Start: 03-18-2025 Urea nitrogen measurement, urine [facility] Start: 03-18-2025 Consultation [facility] Start: 03-18-2025 Patient referral to [facility] Start: 03-18-2025 [facility] Start: 10-08-2024 Patient discharge [facility] Start: 10-07-2024 [facility] Start: 09-30-2024 Referral to service [facility] Start: 09-27-2024 End: 09-27-2024 [facility] Start: 09-27-2024 [facility] Start: 09-24-2024 [facility] Start: 09-19-2024 Development of care plan [facility] Start: 09-19-2024 Developing a treatment plan [facility] Start: 09-19-2024 Following clinical pathway protocol [facility] Start: 09-19-2024 Peripherally inserted central catheter care [facility] Start: 09-18-2024 Consultation [facility] Start: 09-18-2024 Peripherally inserted central catheter care [facility] Start: 09-18-2024 Contact precautions [facility] Start: 09-18-2024 [facility] Start: 09-18-2024 Contact precautions [facility] Start: 09-18-2024 Provision of activity privileges [facility] Start: 09-18-2024 Wound care [facility] Start: 09-18-2024 Admission procedure [facility] Start: 09-18-2024 Introduction of urinary catheter [facility] Start: 09-18-2024 Measuring intake and output [facility] Start: 09-18-2024 Patient referral to dietitian [facility] Start: 09-18-2024 Referral to occupational therapist [facility] Start: 09-18-2024 Referral to service [facility] Start: 09-18-2024 Vital signs measurements [facility] Start: 09-18-2024 End: 09-18-2024 [facility] Start: 09-18-2024 Application of device [facility] Start: 09-18-2024 Patient discharge [facility] Start: 09-18-2024 [facility] Start: 09-16-2024 Consultation [facility] Start: 09-15-2024 Referral to service [facility] Start: 09-14-2024 Oxygen therapy [facility] Start: 09-14-2024 Referral to service [facility] Start: 09-14-2024 Admission procedure [facility] Start: 09-14-2024 Inhalation therapy procedure [facility] Start: 09-13-2024 Application of intermittent pneumatic compression device [facility] Start: 09-13-2024 Following clinical pathway protocol [facility] Start: 09-13-2024 Recommendation to continue with treatment [facility] Start: 09-13-2024 Ambulation therapy management [facility] Start: 09-13-2024 Application of device [facility] Start: 09-13-2024 Assessment of risk of venous thromboembolism [facility] Start: 09-13-2024 Catheterization of vein [facility] Start: 09-13-2024 Following clinical pathway protocol [facility] Start: 09-13-2024 Introduction of urinary catheter [facility] Start: 09-13-2024 Measuring intake and output [facility] Start: 09-13-2024 Neurovascular assessment [facility] Start: 09-13-2024 Patient education [facility] Start: 09-13-2024 Procedure discontinued [facility] Start: 09-13-2024 Provision of activity privileges [facility] Start: 09-13-2024 Referral to occupational therapist [facility] Start: 09-13-2024 Vital signs measurements [facility] Start: 09-13-2024 Wound care [facility] Start: 09-13-2024 [facility] Start: 09-13-2024 Admission procedure [facility] Start: 09-13-2024 Consultation [facility] Start: 09-13-2024 [facility] Start: 09-13-2024 Acid Fast Bacilli Culture Acid Fast Bacilli Culture [facility] Start: 09-13-2024 Acid Fast Bacilli Smear Acid Fast Bacilli Smear [facility] Start: 09-13-2024 Blood culture Blood Culture [facility] Start: 09-13-2024 Fungal Culture Fungal Culture [facility] Start: 09-13-2024 Fungal Smear Fungal Smear [facility] Start: 09-13-2024 Acid fast bacilli culture [facility] Start: 09-13-2024 Medication education [facility] Start: 09-13-2024 Mycology culture [facility] Start: 09-11-2024 Acid Fast Bacilli Culture Acid Fast Bacilli Culture [facility] Start: 09-11-2024 Acid Fast Bacilli Smear Acid Fast Bacilli Smear [facility] Start: 09-11-2024 Fungal Culture Fungal Culture [facility] Start: 09-11-2024 Acid fast bacilli culture [facility] Start: 03-03-2020 Influenza vaccination INFLUENZA (#1) [facility] Start: 2014 ADVANCE DIRECTIVE DISCUSSION ADVANCE DIRECTIVE DISCUSSION [facility] Start: 2014 BONE DENSITY BONE DENSITY [facility] Start: 2014 PNEUMOVAX AGE 65 AND OVER WITH 5YR LOOKBACK (#1) PNEUMOVAX AGE 65 AND OVER WITH 5YR LOOKBACK (#1) [facility] Start: 09-17-2009 LIPID SCREEN LIPID SCREEN [facility] Start: 08-25-2009 DIABETES SCREEN DIABETES SCREEN [facility] Start: 04-11-2007 Mammography MAMMOGRAM [facility] Start: 1999 SHINGRIX VACCINE (1 of 2) SHINGRIX VACCINE (1 of 2) [facility] Start: 01-10-1968 Urine microalbumin profile DTAP,TDAP,TD (1 - Tdap) [facility] Start: 1967 ANNUAL PCP TEAM CHRONIC DISEASE VISIT ANNUAL PCP TEAM CHRONIC DISEASE VISIT [facility] Start: 1967 BP CONTROLLED (<130/80) BP CONTROLLED (<130/80) [facility] Start: 1967 HEPATITIS C SCREENING HEPATITIS C SCREENING [facility] Acid fast bacilli culture [facility] Alanine aminotransfe rase [Enzymatic activity/volume] in Serum or Plasma [facility] Albumin [Mass/volume ] in Serum or Plasma [facility] Alkaline phosphatase [Enzymatic activity/volume] in Serum or Plasma [facility] Anion gap in Serum o r Plasma [facility] Bacteria identified in Sputum by Respiratory culture [facility] Bilirubin, total measurement [facility] BUN/Creatinine ratio [facility] Calcium [Mass/volume ] in Serum or Plasma [facility] Carbon dioxide, tota l [Moles/volume] in Central venous blood [facility] Creatinine [Mass/vol ume] in Serum or Plasma [facility] Erythrocyte mean corpuscular volume determination [facility] Erythrocyte sediment ation rate [facility] Fungus identified in Unspecified specimen by Culture [facility] Fungus identified in Unspecified specimen by Fungus stain [facility] Glucose [Mass/volume ] in Serum or Plasma [facility] Hematocrit [Volume Fraction] of Blood [facility] Hemoglobin [Mass/vol ume] in Blood [facility] Leukocytes [#/volume ] in Blood [facility] Mean corpuscular hem oglobin concentration determination [facility] Mean corpuscular hem oglobin determination [facility] Measurement of renal function [facility] Mycobacterium sp geoff ntified in Unspecified specimen by Organism specific culture [facility] Natriuretic peptide. B prohormone N-Terminal [Mass/volume] in Serum or Plasma [facility] Neutrophil count [facility] Neutrophil percent differential count [facility] Osmolality of Urine [facility] Patient Education PICC PICC Robbins ge Dressing Dc Caring for Your PICC Dc PICC Line Flushing Home Ch Flushing Your PICC Line at Home ED PICC Line Care [facility] Work Phone: Patient referral [facility] Work Phone: Platelets [#/volume] in Blood [facility] Potassium measurement [facility] Red blood cell count [facility] Red cell distributio n width determination [facility] Serum chloride measurement [facility] Sodium measurement [facility] Total protein measurement [facility] Urea nitrogen [Mass/ volume] in Serum or Plasma [facility] Urine culture [facility] Heart limited [facility] Vancomycin [Mass/vol ume] in Serum or Plasma --trough [facility] Immunizations Immunization Date Immunization Notes Care Provider [facility] 04-16-2020 Influenza virus vaccine [facility] 04-16-2020 Dr. Kamar Grimes MD Work Phone: [facility] 08-09-2018 pneumococcal polysaccharide vaccine, [address] Kamar Grimes MD Work Phone: [facility] 04-26-2017 influenza, injectabl e, quadrivalent, preservative free [facility] 04-26-2017 influenza, seasonal, injectable [facility] 12-02-2015 pneumococcal conjuga te vaccine, [address] Kamar Grimes MD Work Phone: [facility] Payers Date Payer Category Payer Medicaid [id number] 2024 Self-pay [id number] 2024 Unknown [id number] 1950 Unknown [id number] 2.16840.1.904344.3.579.2.6 51 1950 Unknown [id number] 2.16840.1.048014.3.579.2.6 27 Medicaid [id number] Medicare [id number] Private Health Insurance [id number] Unknown [id number] Unknown [id number] Unknown [facility] MEDICARE O [id number] Unknown [id number] 2.16.840.1.898026.3.579.2.4 62 Unknown [id number] 2.16840.1.861336.3.579.2.4 62 Unknown [id number] 2.16.840.1.891538.3.579.2.4 62 Unknown [id number] 2.16.840.1.791906.3.579.2.4 62 Unknown [id number] 2.16.840.1.252193.3.579.2.4 62 Unknown [id number] 2.16.840.1.915590.3.579.2.4 62 Unknown [id number] 2.16.840.1.649388.3.579.2.4 62 Unknown [id number] 2.16.840.1.250181.3.579.2.4 62 Unknown [id number] 2.16.840.1.215295.3.579.2.4 62 Unknown [id number] 2.16.840.1.537671.3.579.2.4 62 Unknown [id number] 2.16.840.1.771533.3.579.2.4 62 Unknown [id number] 2.16.840.1.572991.3.579.2.4 62 Unknown [id number] 2.16.840.1.779055.3.579.2.4 62 Unknown [id number] 2.16.840.1.869242.3.579.2.4 62 Unknown [id number] 2.16.840.1.524647.3.579.2.4 62 Unknown [id number] 2.16.840.1.054787.3.579.2.4 62 Unknown [id number] 2.16.840.1.578394.3.579.2.4 62 Unknown [id number] 2.16.840.1.300051.3.579.2.4 62 Unknown [id number] 2.16.840.1.408484.3.579.2.4 62 Unknown [id number] 2.16.840.1.647037.3.579.2.4 62 Unknown [id number] 2.16.840.1.049070.3.579.2.4 62 Unknown [id number] 2.16.840.1.483945.3.579.2.4 62 Unknown [id number] 2.16.840.1.881059.3.579.2.4 62 Unknown [id number] 2.16.840.1.198401.3.579.2.4 62 Unknown [id number] 2.16.840.1.939486.3.579.2.4 62 Unknown [id number] 2.16.840.1.249357.3.579.2.4 62 Unknown [id number] 2.16.840.1.048172.3.579.2.4 62 Unknown [id number] 2.16.840.1.817419.3.579.2.4 62 Unknown [id number] 2.16.840.1.127231.3.579.2.4 62 Unknown [id number] 2.16.840.1.430321.3.579.2.4 62 Unknown [id number] 2.16.840.1.748527.3.579.2.4 62 Unknown [id number] 2.16.840.1.245424.3.579.2.4 62 Unknown [id number] 2.16.840.1.587384.3.579.2.4 62 Unknown [id number] 2.16.840.1.526888.3.579.2.4 62 Unknown [id number] 2.16.840.1.831878.3.579.2.4 62 Unknown [id number] 2.16.840.1.497713.3.579.2.4 62 Unknown [id number] 2.16.840.1.753923.3.579.2.4 62 Unknown [id number] 2.16.840.1.519151.3.579.2.4 62 Unknown [id number] 2.16.840.1.363213.3.579.2.4 62 Unknown [id number] 2.16.840.1.952774.3.579.2.4 62 Unknown [id number] 2.16.840.1.074000.3.579.2.4 62 Unknown [id number] 2.16.840.1.297909.3.579.2.4 62 Unknown [id number] 2.16.840.1.074851.3.579.2.4 62 Social History Date Type Detail Facility Start: 06-12-2006 End: 04-18-2025 Tobacco smoking status NHIS Former smoker [facility] Start: 06-12-2006 Alcohol intake Current non-dr train starter of alcohol (finding) [facility] Sex Assigned At Not on file [facility] Start: 06-11-2020 End: 06-11-2020 Tobacco smoking status WIIS Unknown if ever smoked [facility] Start: 06-11-2020 Non-smoker [facility] Start: 1950 Sex Assigned At Female [facility] Start: 09-18-2024 End: 10-08-2024 Sex Female (finding) [facility] Sex [facility] NEGATED: Highlighted row Not [facility] Medical Equipment Procedure Code Equipment Code [...] Assessment Result Facility 04-23-2025 Functional status Independent [facility] Work Phone: 04-22-2025 Functional status Ambulates [facility] Work Phone: 03-26-2025 Functional status Bathroom Privilege [facility] Work Phone: 03-19-2025 Functional status Bedrest [facility] Work Phone: 10-08-2024 Functional status Ambulates;Up a d shanna;Bathroom Privilege;Back to bed [facility] Work Phone: 09-18-2024 Functional status Ambulates;Ricky r;Bathroom Privilege [facility] Work Phone: 09-17-2024 Functional status Tolerates Activity Well [facility] Work Phone: Mental Status Date Assessment Result Facility 04-23-2025 Cognitive function Voice/Name [facility] Work Phone: 03-26-2025 Cognitive function Voice/Name [facility] Work Phone: 03-19-2025 Cognitive function Voice/Name [facility] Work Phone: 10-08-2024 Cognitive function Voice/Name [facility] Work Phone: 10-05-2024 Cognitive function Appropriate;Cooperativ e [facility] Work Phone: 09-18-2024 Cognitive function Voice/Name [facility] Work Phone: Clinical Notes 09-13-2024 to 04-23-2025 Note Date & Type Note Facility 04-23-2025 Discharge summary Note Date/Time April 23, 2025 6:11pm [facility] Medical Records Department [address] [place] [address] Discharge Summary 04/23/25 1708 MR#: [id number] Acct: [id number] Name: OSCAR WOO Rep #:[id number] : 1950 75 From: Gar[place] Chi PCP: Dr. Kamar Grimes MD Status:ADM IN Location: [place] [address] Providers Date of Admission: 04/18/25 Date of Discharge: 04/23/25 Primary Care Physician: Dr. Kamar Grimes MD Consultations 04/18/25 22:05 Consult: Nephrology Routine Consulting Provider: Keya Basilio Reason for Consult: worsening hyponatremia, severe hypochloremia, ELVIA EMERGENT Consult: No MD Notified: Yes Date Notified: 04/19/25 Time Notified: 06:47 Method of Notification: Answering Service 04/19/25 14:46 Consult: Repair Armature Winder Helper / Pulmonary Medicine Routine Consulting Provider: Intensivists/Pulmonary Med Reason for Consult: hypotension, dizzy EMERGENT Consult: No Notified: Yes Date Notified: 04/19/25 Time Notified: 14:44 Method of Notification: Answering Service Reason For Visit: HYPONATREMIA, FALLS Diagnosis Discharge Diagnosis (1) Hyponatremia: Status: Acute Code(s): E87.1 - Hypo-osmolality and hyponatremia Plan Patient is a 75-year-old female who presented to [facility] ED on 04/18/2025 with worsening hyponatremia and [...] Repeat sodium was 123. Improved 3 mEq. Scrap Crane Operator is consulted. Calculated serum iron 267. [...] normal range.UA negative, hCG 1.015, protein 30. Scrap Crane Operator on board 04/21: Serum sodium improved 127 today. K4.2. Bicarb of 37.5. Anion gap 5. Osmolar gap was normal as mentioned above. 04/22 was seen by international controller. Sodium and chloride at baseline. Sodium 130 [...] % (Auto) 66.8, Lymph % (Auto) 18.2 L,Stanislaus % (Auto) 8.7, Eos % (Auto) 3.7, [...] in before D/C Order can be placed): Halfway Facility Charges/Coding Visit Charges Inpatient E&M: 81387 Disch Hosp >30min 04/23/25 1711 <Electronically signed by Garfield Pierson MD> Cosigner Signature (if applicable): CC: Dr. Kamar Grimes MD; Dr. Garfield Pierson MD~ Signed [facility] Work Phone: 1(487) 359-129210-22-2025 [place] [address]-22-2025 Hospital Discharge instructionsAdditional Instructions Date of Discharge: 04/23/25[facility] Work Phone: 1(321) 201-610810-21-2025 Progress note Author Garfield Pierson [facility] Note Date/Time April 22, 2025 6 :33pm [facility] Medical Records Department [address] [place] [address] Progress Note - Hospitalist 04/22/25 1729 MR#: [id number] Acct: [id number] Name: OSCAR WOO Rep #:[id number] : 1950 75 From: Gar[facility] Chi PCP: Dr. Kamar Grimes MD Status:ADM IN Location: [place] [address]- 1 Reason for Visit Chief Complaint: Worsening [...] % (Auto) 66.8, Lymph % (Auto) 18.2 L,Stanislaus % (Auto) 8.7, Eos % (Auto) 3.7, [...] is a 75-year-old female who presented to [facility] ED on 04/18/2025 with worsening hyponatremia and [...] Repeat sodium was 123. Improved 3 mEq. Scrap Crane Operator is consulted. Calculated serum iron 267. [...] normal range.UA negative, hCG 1.015, protein 30. Scrap Crane Operator on board 04/21: Serum sodium improved 127 today. K4.2. Bicarb of 37.5. Anion gap 5. Osmolar gap was normal as mentioned above. 04/22 was seen by international controller. Sodium and chloride at baseline. Sodium 130 [...] % (Auto) 66.8, Lymph % (Auto) 18.2 L,Stanislaus % (Auto) 8.7, Eos % (Auto) 3.7, [...] Calcium 9.7 Charges/Coding Visit Charges Inpatient E&M: 92146 Subs Hosp L2 04/22/25 1731 <Electronically signed by Garfield Pierson MD> Cosigner Signature (if applicable): CC: ~ Signed [facility] Work Phone: 1(205) 705-747710-21-2025 Progress note Author Keya Basliio [facility] Note Date/Time April 23, 2025 7 :52pm [facility] Medical Records Department [address] [place] [address] Progress Note - Nephrology 04/22/251724 MR#: [id number] Acct: [id number] Name: OSCAR WOO Rep #:[id number] : 1950 75 From: Keya kendrick MD PCP: Dr. Kamar Grimes MD Status:ADM IN Location: [place] [address] Subjective Subjective no new events Objective Data [...] % (Auto) 66.8, Lymph % (Auto) 18.2 L,Stanislaus % (Auto) 8.7, Eos % (Auto) 3.7, [...] Cosigner Signature (if applicable): CC: ~ Signed [facility] Work Phone: 1(451) 706-288110-20-2025 Consult note Author Keya Basilio [facility] Note Date/Time April 21, 2025 9 :53pm [facility] Medical Records Department [address] [place] [address] Consultation - Nephrology 04/21/252049 MR#: [id number] Acct: [id number] Name: OSCAR WOO Rep #:[id number] : 1950 75 From: Keya kendrick MD PCP: Dr. Kamar Grimes MD Status:[facility] Assessment & Plan Assessment/Plan (1) [...] no edema right now. no urinary complaints. [facility] Medical History Saccular aneurysm Infection of prosthetic [...] 74.4 H, Lymph % (Auto) 13.3 L, Stanislaus % (Auto) 8.1, Eos % (Auto) 2.6, [...] applicable): CC: Dr. Kamar Grimes MD~ Signed [facility] Work Phone: 1(526) 382-961910-20-2025 Progress note Author Garfield Pierson [facility] Note Date/Time April 21, 2025 9 :39am [facility] Medical Records Department [address] [place] [address] Progress Note - Hospitalist 04/21/25832 MR#: [id number] Acct: [id number] Name: OSCAR WOO Rep #:[id number] : 1950 75 From: Garfield Chi PCP: Dr. Kamar Grimes MD Status:ADM IN Location: ICU [place] [address] 1-1 Reason for Visit Chief Complaint: Worsening [...] Sl. Cloudy, Urine pH 6.0, Ur Specific [place] 1.010, Urine Protein 30 H, Urine Glucose [...] 74.4 H, Lymph % (Auto) 13.3 L, Stan[place] % (Auto) 8.1, Eos % (Auto) 2.6, [...] is a 75-year-old female who presented to [facility] ED on 04/18/2025 with worsening hyponatremia and [...] Repeat sodium was 123. Improved 3 mEq. Scrap Crane Operator is consulted. Calculated serum iron 267. [...] normal range.UA negative, hCG 1.015, protein 30. Scrap Crane Operator on board 04/21: Serum sodium improved [...] Sl. Cloudy, Urine pH 6.0, Ur Specific [place] 1.010, Urine Protein 30 H, Urine Glucose [...] 74.4 H, Lymph % (Auto) 13.3 L, Stan[place]aus % (Auto) 8.1, Eos % (Auto) 2.6, [...] Calcium 9.0 Charges/Coding Visit Charges Inpatient E&M: 33496 Subs Hosp L2 04/21/25 0839 <Electronically signed by Garfield Pierson MD> Cosigner Signature (if applicable): CC: ~ Signed [facility] Work Phone: [phone] 500-478610-19-2025 Progress note Author Reginaldo Fatima [facility] Note Date/Time April 20, 2025 3 :29pm [facility] Medical Records Department [address] [place] [address] Progress Note - Repair Armature Winder Helper 04/20/25 1428 MR#: [id number] Acct: [id number] Name: OSCAR WOO Rep #:[id number] : 1950 75 From: Reginaldo Fatima MD [...] mls @ 15 mls/hr 04/19/25 02:16 IV .[id number] PRN Saline Flush Sodium Chloride 250 mls @ 15 mls/hr 04/19/25 02:16 IV .[id number] PRN Additional IVPB Infusion Melatonin 10 mg [...] (Auto) 72.5 H, Lymph % (Auto) 15.6 L,Stanislaus % (Auto) 7.9, Eos % (Auto) 2.7, [...] (Auto) 73.3 H, Lymph % (Auto) 14.8 L,Stanislaus % (Auto) 7.7, Eos % (Auto) 2.9, [...] Sl. Cloudy, Urine pH 6.0, Ur Specific [place] 1.010, Urine Protein 30 H, Urine Glucose [...] No focal consolidation. Mild cardiomegaly. Reading Location: [facility] Assessment and Plan . Assessment and plan: [...] Cosigner Signature (if applicable): CC: ~ Signed [facility] Work Phone: 1([phone]) 185-235210-19-2025 Progress note Author Garfield Pierson [facility] Note Date/Time April 20, 2025 9 :21am [facility] Medical Records Department [address] [place] [address] Progress Note - Hospitalist 04/20/25725 MR#: [id number] Acct: [id number] Name: OSCAR WOO Rep #:[id number] : 1950 75 From: Garfield Chi PCP: [...] (Auto) 72.5 H, Lymph % (Auto) 15.6 L,Stanislaus % (Auto) 7.9, Eos % (Auto) 2.7, [...] (Auto) 73.3 H, Lymph % (Auto) 14.8 L,Stanislaus % (Auto) 7.7, Eos % (Auto) 2.9, [...] No focal consolidation. Mild cardiomegaly. Reading Location: [facility] Physical Exam Narrative Seen and examined Patient [...] is a 75-year-old female who presented to [facility] ED on 04/18/2025 with worsening hyponatremia and [...] Repeat sodium was 123. Improved 3 mEq. Scrap Crane Operator is consulted. Calculated serum iron 267. [...] normal range.UA negative, hCG 1.015, protein 30. Scrap Crane Operator on board 2. ELVIA with mild [...] 35 minutes. Charges/Coding Visit Charges Inpatient E&M: 62429 Subs Hosp L3 04/20/25 0821 <Electronically signed by Garfield Pierson MD> Cosigner Signature (if applicable): CC: ~ Signed [facility] Work Phone: [phone] 324-491210-18-2025 Consult note Author Reginaldo Fatima [facility] Note Date/Time April 19, 2025 7 :01pm [facility] Medical Records Department [address] [place] [address] Consultation - Repair Armature Winder Helper 04/19/25 1750 MR#: [id number] Acct: [id number] Name: OSCAR WOO Rep #:[id number] : 1950 75 From: Reginaldo Fatima MD [...] SOB but her brain still seems "foggy". [facility] Medical History Saccular aneurysm Infection of prosthetic [...] mls @ 15 mls/hr 04/19/25 02:16 IV .[id number] PRN Saline Flush Sodium Chloride 250 mls @ 15 mls/hr 04/19/25 02:16 IV .[id number] PRN Additional IVPB Infusion Melatonin 10 mg [...] 72.5 H, Lymph % (Auto) 15.6 L, Stan[place] % (Auto) 7.9, Eos % (Auto) 2.7, [...] No focal consolidation. Mild cardiomegaly. Reading Location: [facility] Assessment and Plan . Assessment and plan: [...] this encounter was done via Telemedicine 04/19/25 2844 <Electronically signed by Reginaldo Fatima MD> Cosigner Signature (if applicable): CC: Dr. Kamar Grimes MD~ Signed [facility] Work Phone: [phone]) 873-701610-18-2025 Progress note Author Garfield Pierson [facility] Note Date/Time April 19, 2025 5 :45pm [facility] Medical Records Department [address] [place] [address] Progress Note - Hospitalist 04/19/25 1137 MR#: [id number] Acct: [id number] Name: OSCAR WOO Rep #:[id number] : 1950 75 From: Garfield Chi PCP: [...] 77.8 H, Lymph % (Auto) 10.9 L, Stan[place] % (Auto) 8.9, Eos % (Auto) 1.6, [...] is a 75-year-old female who presented to [facility] ED on 04/18/2025 with worsening hyponatremia and [...] Repeat sodium was 123. Improved 3 mEq. Scrap Crane Operator is consulted. Calculated serum iron 267. [...] 35 minutes. Charges/Coding Visit Charges Inpatient E&M: 95204 Subs Hosp L3 04/19/25 5852 <Electronically signed by Garfield Pierson MD> Cosigner Signature (if applicable): CC: ~ Signed [facility] Work Phone: [phone] 635-885810-18-2025 Progress note Author Keya Basilio [facility] Note Date/Time April 19, 2025 5 :34pm [facility] Medical Records Department [address] [place] [address] Progress Note 04/19/25 1633 MR#: [id number] Acct: [id number] Name: OSCAR WOO Rep #:[id number] : 1950 75 From: Keya kendrick MD PCP: Dr. Kamar Grimes MD Status:ADM IN Location: ICU CVICU 07-03 Progress Note attempted to see earlier. was not in room. chart reviewed. normal baseline sodium. hyponatremia, hypochloremia, likely volume depletion. 04/19/25 1634 <Electronically signed by Keya Basilio MD> Keya Basilio MD Cosigner Signature (if applicable): CC: ~ Signed [facility] Work Phone: [phone]) 524-271110-18-2025 Radiology Diagnostic study [facility]10-18-2025 Radiology Diagnostic study [facility]10-18-2025 History and physical note Author Jermaine [facility] Note Date/Time April 18, 2025 1 1:05pm [facility] Medical Records Department [address] [place] [address] H&P Exam - Hospitalist 04/18/25 1717 MR#: [id number] Acct: [id number] Name: OSCAR WOO Rep #:[id number] : 1950 75 From: Jermaine cardona DO PCP: Dr. Kamar Grimes MD Status:ADM [facility] - General General Date of Admission: 04/18/25 Date of Service: 04/18/25 Chief Complaint: Worsening hyponatremia and falls HPI Narrative OSCAR WOO, is a 75 F who presented to [facility] on 04/18/2025 with worsening hyponatremia and falls at home. Patient lives at [facility]. Medical history significant for class II [...] currently. Will be admitted for further management. [facility] Medical History Saccular aneurysm Infection of prosthetic [...] 77.8 H, Lymph % (Auto) 10.9 L, Stan[place] % (Auto) 8.9, Eos % (Auto) 1.6, [...] is a 75-year-old female who presented to [facility] ED on 04/18/2025 with worsening hyponatremia and [...] 86 minutes. Charges/Coding Visit Charges Inpatient E&M: 10474 Init Hosp L3 04/18/252 <Electronically signed by Jermaine Simms DO> Cosigner Signature (if applicable): CC: Dr. Jermaine Simms DO; Dr. Kamar Grimes MD~ Signed [facility] Work Phone: [phone] 165-506110-17-2025 Discharge summary Author Deion Levy [facility] Note Date/Time April 18, 2025 6 :26pm [facility] Medical Records Department [address] [place] [address] Emergency Department Summary 04/18/25 MR#: [id number] Acct: [id number] Name: OSCAR WOO Rep #:[id number] : 1950 75 From: Deion Levy MD [...] Prior similar symptoms: No Recent Illness/Hospitalization: No [facility] Medical History Saccular aneurysm Infection of [...] steroids recently. There is no concern for Alamo's disease. She in my opinion does not [...] 77.8 H Lymph % (Auto) 10.9 L Stan[place] % (Auto) 8.9 Eos % (Auto) 1.6 [...] your Primary Care Provider. Call [facility] ([phone]) or report to the closest Emergency Room. Call 911 if necessary. 04/18/251725 <Electronically signed by Deion Levy MD> Cosigner Signature (if applicable): CC: Dr. Kamar Grimes MD ~ Signed [facility] Work Phone: [phone] 416-422510-17-2025 Discharge summary Author Deion Levy [facility] Note Date/Time April 18, 2025 5 :26pm [facility] Medical Records Department [address] [place] [address] Emergency Department Summary 04/18/25 MR#: [id number] Acct: [id number] Name: OSCAR WOO Rep #:[id number] : 1950 75 From: Deion Levy MD [...] similar symptoms: No Recent Illness/Hospitalization: No PFSH [facility] Medical History Saccular aneurysm Infection of prosthetic [...] She in my opinion does not have Brushton syndrome either. I believe her symptoms are [...] 77.8 H Lymph % (Auto) 10.9 L [place] % (Auto) 8.9 Eos % (Auto) 1.6 [...] your Primary Care Provider. Call [facility] ([phone]) or report to the closest Emergency Room. Call 911 if necessary. 04/18/25 1726 <Electronically signed by Deion Levy MD> Cosigner Signature (if applicable): CC: Dr. Kamar Grimes MD ~ Signed [facility] Work Phone: [phone] Progress note Author Mike Reddy [facility] Note Date/Time April 16, 2025 4 :26pm [facility] [address] [place] [address]. [address] [place] [address] OFFICE VISIT Date of Service: 04/16/25 MR#: [id number] Acct: [id number] Name: OSCAR WOO Rep #: [id number] : 1950 Provider: Dr. Ajit Reddy MD Age/Sex: 75/F Location: [facility] Status: Signed HPI HPI History of Present Illness Details: Patient is a 75-year-old white female that comes in with family for follow-up after prolonged hospitalization at [facility]. Patient was admitted with profound hypotension and [...] [facility], 03/27/25, AAA Equipment Operator/Laborer/Supervisor Required: No Accompanied by: Cousin, Sister Is [...] Orders: Orders 12 Lead EKG performed by [facility] Today I10 - Essential (primary) hypertension Echo, [...] Additional Comments: This note was generated with BizArkation software. It may contain incorrectwords, spelling, and [...] applicable) CC: Dr. Kamar Grimes MD ~ [employer] Work Phone: [phone]) 954-968109-24-2025 Discharge summary Author Karlapatrick Bustamante [facility] Note Date/Time March 26, 2025 1:42pm [facility] Medical Records Department [address] [place] [address] Discharge Summary 03/26/25 1309 MR#: [id number] Acct: [id number] Name: OSCAR WOO Rep #:[id number] : 1950 75 From: Karla Bustamante DO PCP: Dr. Kamar Grimes MD Status:ADM IN [facility] Providers Date of Admission: 03/18/25 Date of Discharge: 03/26/25 Primary Care Physician: Dr. Kamar Grimes MD Consultations 03/18/25 20:43 Consult: Repair Armature Winder Helper / Pulmonary Medicine Routine Consulting Provider: [facility] Reason for Consult: Vent management, undifferentiated shock EMERGENT Consult: No MD Notified: Yes Date Notified: 03/19/25 Time Notified: 00:10 Method of Notification: Text 03/19/25 00:33 Consult: Onc/Wound/padded products finisher Routine Comment: Reason for Consult:: Per ICU [...] 75-year-old white female who presents emergency department [facility] on 03/18/2025 with altered mental status. She [...] her insurance company which they declined for half-way facility. Home health was set up. We [...] 78.0 H, Lymph % (Auto) 9.6 L, [place] % (Auto) 10.1 H, Eos % (Auto) [...] Health Service Charges/Coding Visit Charges Inpatient E&M: 05593 Disch Hosp >30min 03/26/25 1342 <Electronically signed by Karla Bustamante DO> Cosigner Signature (if applicable): CC: Dr. Kamar Grimes MD; Dr. Karla Bustamante DO~ Signed [facility] Work Phone: 1([phone]) 132-986909-24-2025 [facility]09-23-2025 Progress note Author Karla Bustamante [facility] Note Date/Time March 25, 2025 6:11pm [facility] Medical Records Department [address] [place] [address] Progress Note - Hospitalist 03/25/25 180 MR#: [id number] Acct: [id number] Name: OSCAR WOO Rep #:[id number] : 1950 75 From: Karla Bustamante DO PCP: Dr. Kamar Grimes MD Status:ADM IN Location: [place] [address] Reason for Visit Chief Complaint: Altered mental [...] (Auto) 79.2 H, Lymph % (Auto) 9.4L, [place] % (Auto) 9.3, Eos % (Auto) 1.4, [...] from insurance Charges/Coding Visit Charges Inpatient E&M: 46340 Subs Hosp L2 Date medically ready for discharge: 03/24/25 Reason for DC delay: Precert pending from insurance 03/25/251810 <Electronically signed by Karla Bustamante DO> Cosigner Signature (if applicable): CC: ~ Signed [facility] Work Phone: 1([phone]) 250-716609-22-2025 Progress note Author Karla Bustamante [facility] Note Date/Time March 24, 2025 4:50pm [facility] Medical Records Department [address] [place] [address] Progress Note - Hospitalist 03/24/25 1636 MR#: [id number] Acct: [id number] Name: OSCAR WOO Rep #:[id number] : 1950 75 From: Karla Bustamante DO PCP: Dr. Kamar Grimes MD Status:ADM IN Location: [place] [address] Reason for Visit Chief Complaint: Altered mental [...] (Auto) 75.3 H, Lymph % (Auto) 9.8L, [place] % (Auto) 12.2 H, Eos % (Auto) [...] from insurance Charges/Coding Visit Charges Inpatient E&M: 58571 Subs Hosp L2 Date medically ready for discharge: 03/24/25 Reason for DC delay: Precert pending from insurance 03/24/25 1650 <Electronically signed by Karla Bustamante DO> Cosigner Signature (if applicable): CC: ~ Signed [facility] Work Phone: [phone]) 200-973009-22-2025 Progress note Author Sixto Andrade [facility] Note Date/Time March 24, 2025 2:[address] [place] [address] Health System Medical Records Department [address] [place] [address] Progress Note - Infect Disease 03/24/25 1429 MR#: [id number] Acct: [id number] Name: OSCAR WOO Rep #:[id number] : 1950 75 From: Sixto calhoun MD PCP: Dr. Kamar Grimes MD Status:ADM IN Location: [place] [address] Physical Exam Narrative Feeling better, no fever, [...] Cosigner Signature (if applicable): CC: ~ Signed [facility] Work Phone: 1(902) 758-542009-21-2025 Progress note Author Otilia Hernandez [facility] Note Date/Time March 23, 2025 5:07pm [facility] Medical Records Department [address] [place] [address] Progress Note 03/23/25 1207 MR#: [id number] Acct: [id number] Name: OSCAR WOO Rep #:[id number] : 1950 75 From: Otilia Hernandez MD PCP: Dr. Kamar Grimes MD Status:ADM IN Location: [place] [address] Subjective Subjective Patient seen and examined. She [...] 72.4 H, Lymph % (Auto) 15.5 L, [place] % (Auto) 9.8, Eos % (Auto) 1.6, [...] medically stable Charges/Coding Visit Charges Inpatient E&M: 76272 Subs Hosp L2 03/23/25 1707 <Electronically signed by Otilia Hernandez MD> Otilia Hernandez MD Cosigner Signature (if applicable): CC: ~ Signed [facility] Work Phone: [phone]) 326-725909-20-2025 Progress note Author Otilia [facility] Note Date/Time March 22, 2025 3:17pm [facility] Medical Records Department [address] [place] [address] Progress Note 03/22/25 1015 MR#: [id number] Acct: [id number] Name: OSCAR WOO Rep #:[id number] : 1950 75 From: Otilia Hernandez MD PCP: Dr. Kamar Grimes MD Status:ADM IN Location: [place] [address]- 1 Subjective Subjective Patient seen and examined. [...] 90.1 H, Lymph % (Auto) 5.1 L, [place] % (Auto) 4.1, Eos % (Auto) 0.0, [...] SCDs, Lovenox Charges/Coding Visit Charges Inpatient E&M: 37413 Subs Hosp L2 03/22/25 2189 <Electronically signed by Otilia Hernandez MD> Otilia Hernandez MD Cosigner Signature (if applicable): CC: ~ Signed [facility] Work Phone: [phone]) 549-624409-20-2025 Progress note Author John Quinn [facility] Note Date/Time March 22, 2025 12:32pm [facility] Medical Records Department [address] [place] [address] Progress Note - Repair Armature Winder Helper 03/22/25 1230 MR#: [id number] Acct: [id number] Name: OSCAR WOO Rep #:[id number] : 1950 75 From: John Chi PCP: Dr. Kamar Grimes MD Status:ADM IN Location: [address] 1 Objective Data Objective Data Vital [...] 03/22/25 10:18 Intake Total 9694.60 Output Total 6748 Balance 2919.60 Current Meds Ordered / Administered: [...] / Sodium Chloride CONT INF Not Given .U53V65I KACEY Protocol 5 MCG/MIN Pantoprazole Sodium 40 mg/ 100 mls @ 300 mls/hr 03/19/25 10:00 03/22/25 10:18 Sodium Chloride IV Infused Q24 KACEY Infusion Meropenem 1 gm/ Sodium 100 mls @ 33 mls/hr 03/19/25 10:00 03/22/25 11:36 Chloride IV 33 mls/hr Q12 KACEY Administration Sodium Chloride 250 mls @ 15 mls/hr 03/18/25 21:14 03/22/25 06:04 IV Infused .[id number] PRN Infusion Saline Flush Sodium Chloride 250 mls @ 15 mls/hr 03/18/25 21:14 IV .O65A15O PRN Additional IVPB Infusion Sodium Chloride 1,000 [...] 90.1 H, Lymph % (Auto) 5.1 L, [place] % (Auto) 4.1, Eos % (Auto) 0.0, [...] Cosigner Signature (if applicable): CC: ~ Signed [facility] Work Phone: [phone]) 268-197509-19-2025 Progress note Author Otilia Hernandez [facility] Note Date/Time March 21, 2025 5:21pm [facility] Medical Records Department [address] [place] [address] Progress Note 03/21/25 1207 MR#: [id number] Acct: [id number] Name: OSCAR WOO Rep #:[id number] : 1950 75 From: Otilia Hernandez MD [...] (Auto) 90.8 H, Lymph % (Auto) 3.4L, [place] % (Auto) 4.6, Eos % (Auto) 0.1, [...] SCDs, Lovenox Charges/Coding Visit Charges Inpatient E&M: 17895 Subs Hosp L2 03/21/25 1721 <Electronically signed by Otilia Hernandez MD> Otilia Hernandez MD Cosigner Signature (if applicable): CC: ~ Signed [facility] Work Phone: [phone] Progress note Author Sixto Andrade [facility] Note Date/Time March 21, 2025 10:21am [facility] Medical Records Department [address] [place] [address] Progress Note - Infect Disease 03/21/25 1019 MR#: [id number] Acct: [id number] Name: OSCAR WOO Rep #:[id number] : 1950 75 From: Sixto calhoun MD [...] Cosigner Signature (if applicable): CC: ~ Signed [facility] Work Phone: [phone] 317-711109-19-2025 Progress note Author Antwan Gardner [facility] Note Date/Time March 21, 2025 8:54am [facility] Medical Records Department [address] [place] [address] Progress Note - Repair Armature Winder Helper 03/21/25 0720 MR#: [id number] Acct: [id number] Name: OSCAR WOO Rep #:[id number] : 1950 75 From: Antwan Gardner DO PCP: Dr. Kamar Grimse MD Status:ADM IN Location: ICU ICU02-1 Assessment [...] the patient. This note was generated with Lob dictation software. It may contain incorrectwords, spelling, [...] (Auto) 90.8 H, Lymph % (Auto) 3.4L, [place] % (Auto) 4.6, Eos % (Auto) 0.1, [...] replacement. There is good alignment. Reading Location: [facility] Physical Exam Const alert, oriented x3 [...] affect normal Charges/Coding Visit Charges Inpatient E&M: 44907 Subs Hosp L3 03/21/25 0854 <Electronically signed by Antwan Gardner DO> Cosigner Signature (if applicable): CC: ~ Signed [facility] Work Phone: [phone] Consult note Author Saroj Rodriguez [facility] Note Date/Time March 20, 2025 9:23pm [facility] Medical Records Department [address] [place] [address] Pharmacokinetic/Renal -Consult 03/20/252121 MR#: [id number] Acct: [id number] Name: OSCAR WOO Rep #:[id number] : 1950 75 From: Saroj العراقي od [...] Signature (if applicable): Date CC: ~ Signed [facility] Work Phone: 1([phone]) 391-232709-18-2025 Progress note Author Otilia Hernandez [facility] Note Date/Time March 20, 2025 4:05pm [facility] Medical Records Department [address] [place] [address] Progress Note 03/20/25 1352 MR#: [id number] Acct: [id number] Name: OSCAR WOO Rep #:[id number] : 1950 75 From: Otilia Hernandez MD [...] 90.9 H, Lymph % (Auto) 4.1 L, [place] % (Auto) 4.1, Eos % (Auto) 0.0, [...] replacement. There is good alignment. [facility] Physical Exam Const oriented x3 and [...] SCDs, Lovenox Charges/Coding Visit Charges Inpatient E&M: 30741 Subs Hosp L2 03/20/25 1605 <Electronically signed by Otilia Hernandez MD> Otilia Hernandez MD Cosigner Signature (if applicable): CC: ~ Signed [facility] Work Phone: 1([phone]) 326-540409-18-2025 Consult note Author Sixto Andrade [facility] Note Date/Time March 20, 2025 10:41am [facility] Medical Records Department [address] [place] [address] Consultation - Infectious Dx 03/20/25 1035 MR#: [id number] Acct: [id number] Name: OSCAR WOO Rep #:[id number] : 1950 75 From: Sixto calhoun MD [...] as noted above. [facility] Medical History Infection and inflammatory [...] 90.9 H, Lymph % (Auto) 4.1 L, [place] % (Auto) 4.1, Eos % (Auto) 0.0, [...] replacement. There is good alignment. Reading Location: [place] [address] 03/20/25 104 <Electronically signed by Sixto Andrade MD> Cosigner Signature (if applicable): CC: Dr. Kamar Grimes MD~ Signed [facility] Work Phone: 1([phone]) 190-632709-18-2025 Progress note Author Antwan Gardner [facility] Note Date/Time March 20, 2025 9:23am [facility] Medical Records Department [address] [place] [address] Progress Note - Repair Armature Winder Helper 03/20/25 0727 MR#: [id number] Acct: [id number] Name: OSCAR WOO Rep #:[id number] : 1950 75 From: Antwan Gardner DO [...] 90.9 H, Lymph % (Auto) 4.1 L, [place] % (Auto) 4.1, Eos % (Auto) 0.0, [...] appropriately. Psych cooperative Charges/Coding Procedures Hospitalists Procedures: 81020 Critical Care 1st Hr 03/20/25922 <Electronically signed by Antwan Gardner DO> Cosigner Signature (if applicable): CC: ~ Signed [facility] Work Phone: [phone]) [phone] Radiology Diagnostic study [facility]09-18-2025 Consult note Author Saul Kearney [facility] Note Date/Time March 20, 2025 6:59am [facility] Medical Records Department [address] [place] [address] Consultation - Cardiology 03/20/25 0652 MR#: [id number] Acct: [id number] Name: OSCAR WOO Rep #:[id number] : 1950 75 From: Saul Kearney MD [...] rhythmand sinus tachycardia with no acute changes. [facility] Medical History Infection and inflammatory [...] 90.9 H, Lymph % (Auto) 4.1 L, [place] % (Auto) 4.1, Eos % (Auto) 0.0, [...] 90.9 H, Lymph % (Auto) 4.1 L, [place] % (Auto) 4.1, Eos % (Auto) 0.0, [...] applicable): CC: Dr. Kamar Grimes MD~ Signed [facility] Work Phone: [phone]) 275-935809-17-2025 Progress note Author Claire [facility]a [facility] [facility] Note Date/Time March 19, 2025 7:34pm [facility] Medical Records Department [address] [place] [address] 18[address] Progress Note - Hospitalist 03/19/251932 MR#: [id number] Acct: [id number] Name: OSCAR WOO Rep #:[id number] : 1950 75 From: Claire Mayorga MD PCP: Dr. Kamar Grimes MD Status:ADM IN Location: ICU ICU02-1 Hospitalist Note ICU physician recommended ID consultation and possible UE CT. Will place consultfor ID and await their further recommendations. 03/19/251933 <Electronically signed by Claire Mayorga MD> Cosigner Signature (if applicable): CC: ~ Signed [facility] Work Phone: 1(330) 708-188709-17-2025 Progress note Author Otilia Gosscristofer [facility] Note Date/Time March 19, 2025 3:59pm [facility] Medical Records Department [address] [place] [address] Progress Note 03/19/25 1411 MR#: [id number] Acct: [id number] Name: OSCAR WOO Rep #:[id number] : 1950 75 From: Otilia Hernandez MD [...] 84.3 H, Lymph % (Auto) 7.4 L, Stanislaus % (Auto) 7.0, Eos % (Auto) 0.0, [...] Clarity Clear, Urine pH 6.0, Ur Specific [place] 1.015, Urine Protein 30 H, Urine Glucose [...] 83.0 H, Lymph % (Auto) 11.9 L, Stanislaus % (Auto) 4.2, Eos % (Auto) 0.1, [...] IMPRESSION: No acute intracranial process. Reading Location: [id number]-[id number]-UK Chest X-Ray 03/18/25 15:35 IMPRESSION: Bilateral low lung volumes. No acute cardiopulmonary abnormality. Reading Location: RDG-SJSEO-VP Chest X-Ray 03/18/25 17:44 IMPRESSION: 1. Endotracheal tube tip 3.1 cm above the abigail. 2. Enteric tube appropriately positioned terminating in the upper midabdomen. 3. Cardiomegaly, with increased vascular markings and possible interstitial edema. Reading Location: [facility] KUB X-Ray 03/18/25 18:00 IMPRESSION: Enteric tube terminates appropriately within the stomach. Persistent IV contrast opacifying the kidneys suggesting medical renal disease with delayed excretion. Reading Location: [id number] Abdomen/Pelvis CTA 03/18/25 18:50 IMPRESSION: 1. No acute or active inflammatory intra-abdominal pathology. 2. Stable saccular infrarenal abdominal aortic aneurysm measuring up to 4.4 cm. 3. Indeterminate 15 mm right adrenal gland nodule, probably adenoma. Suggest follow-up dedicated adrenal CT or MRI in 12 months to assess stability. Reading Location: [facility] Chest X-Ray 03/18/25 19:02 IMPRESSION: 1. New right subclavian approach central venous catheter, tip at the lower SVC. 2. Stable positioning of the endotracheal and enteric tubes. 3. Unchanged lung aeration. Stable cardiomegaly. Reading Location: VAD-[id number]-MP Echocardiogram 03/19/25 01:33 Interpretation Summary Normal LV [...] patient's body habitus and position. Reading Location: [place] [address] Physical Exam Const Constitutional Narrative: Intubated, sedated, [...] SCDs, Lovenox Charges/Coding Visit Charges Inpatient E&M: 14667 [facility] H[facility] 03/19/25 6606 <Electronically signed by Otilia Hernandez MD> Otilia Hernandez MD Cosigner Signature (if applicable): CC: ~ Signed [facility] Work Phone: 1([phone]) 546-358109-17-2025 Discharge summary Author Deion Levy [facility] Note Date/Time March 19, 2025 3:24pm [facility] Medical Records Department [address] [facility] [place] [address] Emergency Department Summary 03/18/25 MR#: [id number] Acct: [id number] Name: OSCAR WOO Rep #:[id number] : 1950 75 From: Deion Levy MD [...] is a 75-year-old woman. She arrived by [employer] She was met at the ambulance entrance because she reportedly had slurred speech. She was last known well at 160o on March 17. Family called [facility]. She has a bruise noted lateral left [...] 84.3 H Lymph % (Auto) 7.4 L Stanislaus % (Auto) 7.0 Eos % (Auto) 0.0 [...] Color Urine Clarity Urine pH Ur Specific [place] Urine Protein Urine Glucose (UA) Urine Ketones [...] (Auto) Neut % (Auto) Lymph % (Auto) Stanislaus % (Auto) Eos % (Auto) Baso % [...] Clarity Clear Urine pH 6.0 Ur Specific [place] 1.015 Urine Protein 30 H Urine Glucose [...] IMPRESSION: No acute intracranial process. Reading Location: [id number] Chest X-Ray 03/18/25 15:35 IMPRESSION: Bilateral low lung volumes. No acute cardiopulmonary abnormality. Reading Location: AZL-[id number]-RU Chest X-Ray 03/18/25 17:44 IMPRESSION: 1. Endotracheal tube tip 3.1 cm above the abigail. 2. Enteric tube appropriately positioned terminating in the upper midabdomen. 3. Cardiomegaly, with increased vascular markings and possible interstitial edema. Reading Location: [facility] KUB X-Ray 03/18/25 18:00 IMPRESSION: Enteric tube terminates appropriately within the stomach. Persistent IV contrast opacifying the kidneys suggesting medical renal disease with delayed excretion. Reading Location: [facility] Abdomen/Pelvis CTA 03/18/25 18:50 IMPRESSION: 1. No acute or active inflammatory intra-abdominal pathology. 2. Stable saccular infrarenal abdominal aortic aneurysm measuring up to 4.4 cm. 3. Indeterminate 15 mm right adrenal gland nodule, probably adenoma. Suggest follow-up dedicated adrenal CT or MRI in 12 months to assess stability. Reading Location: [facility] Chest X-Ray 03/18/25 19:02 IMPRESSION: 1. New right subclavian approach central venous catheter, tip at the lower SVC. 2. Stable positioning of the endotracheal and enteric tubes. 3. Unchanged lung aeration. Stable cardiomegaly. Reading Location: [facility] I did review the CAT scan. [...] She also desaturated. She was ventilated by sot-ghtjx-orcs by respiratory therapist and me. Once her saturation reached 97%she was intubated easily with a 7.5 Haitian endotracheal tube. The tube was seenpassing through [...] Heather first attempt. Using Seldinger technique 7.5 Haitian triple-lumen was placed without difficulty. Blood was aspirated from all 3 ports. Will obtain chest x-ray to confirm placement and evaluate for pneumothorax. Chest x-ray status post right subclavian line placement reveals the line to be in proper position. There is no evidence of pneumothorax or hemothorax. Comments:: Care Transport Nurse is asked to page the hospitalist at [phone]. Procedures Other Procedures Procedure(s): 7.5 Haitian triple-lumen placed right subclavian. Documentation under [facility] portion of the medical records. Critical Care Time Critical Care Time: Yes Critical care time (excluding procedures): 30-74 minutes (34), Including time spent: (History, physical, documentation, independent or potation laboratory results and images, treatment for hypotension of unknown cause), Discussing w/Patient &/or Family/Framework Developer (Inform patient that since she has gotten [...] problems, contact your Primary Care Provider. Call [facility] ([phone]) or report to the closest Emergency Room. Call 911 if necessary. 03/19/25 1524 <Electronically signed by Deion Levy MD> Cosigner Signature (if applicable): CC: Dr. Kamar Grimes MD ~ Signed [facility] Work Phone: 1([phone]) 206-240609-17-2025 Consult note Author Una Smith [facility] Note Date/Time March 19, 2025 3:18pm [facility] Medical Records Department [address] [place] [address] Pharmacokinetic/Renal -Consult 03/18/25 215 MR#: [id number] Acct: [id number] Name: OSCAR WOO Rep #:[id number] : 1950 75 From: Una Smith PCP: [...] Labs: Trough: Vancomycin (03/20/25 @ 21:00) 03/18/25 5802 <Electronically signed by Una Smith> Date _ Una Smith 03/19/25 8658 <Electronically signed by Emili Lee MD> Cosigner Signature (if applicable): Date Emili Lee MD CC: ~ Signed [facility] Work Phone: 1(798) 611-446609-17-2025 Progress note Author Antwan Gardner [facility] Note Date/Time March 19, 2025 10:41am [facility] Medical Records Department [address] [place] [address] Progress Note 03/19/25 0809 MR#: [id number] Acct: [id number] Name: OSCAR WOO Rep #:[id number] : 1950 75 From: Antwan Gardner DO PCP: Dr. Kamar Grimes MD Status:ADM IN Location: ICU ICU02-1 Progress Note The patient was seen and examined this morning, in follow up from condenser tube tender evaluation overnight. The patient initially presented to [...] Cosigner Signature (if applicable): CC: ~ Signed [facility] Work Phone: [phone]) 249-695709-17-2025 NoteAcceptable Specimen? Acceptable Specimen(Evaluation not needed) Gram Stain 2+ White Blood Cells Rare Gram positive rods No Epithelial cellsWooster Community HospitalComment on above:Performed By: #### M100.2400, M100.1999 ####[facility] [address] [place], [phone] Progress note Author Rivera Ramírez [facility] Note Date/Time March 19, 2025 6:51am [facility] Medical Records Department [address] [place] [address] Progress Note - Hospitalist 03/19/25 0647 MR#: [id number] Acct: [id number] Name: OSCAR WOO Rep #:[id number] : 1950 75 From: Rivera Pollock PCP: Dr. Kamar Grimes MD Status:ADM IN Location: ICU ICU02-1 Hospitalist Note 1859 called by nursing maintenance supervisor 2nd shift to assist with arterial line. upon arrival, [...] Cosigner Signature (if applicable): CC: ~ Signed [facility] Work Phone: 1(871) 395-133709-17-2025 Radiology Diagnostic study [facility]09-17-2025 Consult note Author Wally Waddell [facility] Note Date/Time March 19, 2025 1:27am [facility] Medical Records Department [address] [place] [address] Consultation - Repair Armature Winder Helper 03/19/25 0121 MR#: [id number] Acct: [id number] Name: VIRIDIANA WOOISIDORO Dowling Rep #:[id number] : 1950 75 From: Wally mueller MD PCP: Dr. Kamar Grimes MD Status:ADM IN Location: ICU ICU02-1 HPI Consult Data Date of Consult: 03/19/25 HPI Narrative HPI Narrative: 75-year-old female with a history of restless leg syndrome, hypertension, depression, hypertension presented [facility] ED 03/18/2025 due to altered mental status. She had a recent CTA w/ a Infrarenal AAA and repeat CTA showed no rupture, no obvious PE. She was intubated and started on vasopressors and broad abx for ? Septic shock. [facility] Medical History Infection and inflammatory [...] / Sodium Chloride CONT INF 10 mcg/min .[id number] KACEY 18.8 mls/hr Titration Protocol 5 MCG/MIN [...] mls @ 15 mls/hr 03/18/25 21:14 IV .[id number] PRN Saline Flush Sodium Chloride 250 mls @ 15 mls/hr 03/18/25 21:14 IV .[id number] PRN Additional IVPB Infusion Sodium Chloride 1,000 mls @ 1 mls/hr 03/18/25 21:14 IV .Q48H PRN Saline Flush Vancomycin HCl 1,250 mg/ 275 mls @ 167 mls/hr 03/19/25 21:30 Sodium Chloride IV Q24H [facility] Propofol 1,000 mg in 100 mls @ [...] Vancomycin Trough/Random Due MC 03/20/25 22:00 DAILY [facility] Physical Exam Vital Signs/Image Vital Signs/Narrative: Vital [...] 84.3 H, Lymph % (Auto) 7.4 L, [place] % (Auto) 7.0, Eos % (Auto) 0.0, [...] Clarity Clear, Urine pH 6.0, Ur Specific [place] 1.015, Urine Protein 30 H, Urine Glucose [...] IMPRESSION: No acute intracranial process. Reading Location: XNC-FALYMT-PV Chest X-Ray 03/18/25 15:35 IMPRESSION: Bilateral low lung volumes. No acute cardiopulmonary abnormality. Reading Location: SUW-KPSTT-JM Chest X-Ray 03/18/25 17:44 IMPRESSION: 1. Endotracheal tube tip 3.1 cm above the abigail. 2. Enteric tube appropriately positioned terminating in the upper midabdomen. 3. Cardiomegaly, with increased vascular markings and possible interstitial edema. Reading Location: [facility] KUB X-Ray 03/18/25 18:00 IMPRESSION: Enteric tube terminates appropriately within the stomach. Persistent IV contrast opacifying the kidneys suggesting medical renal disease with delayed excretion. Reading Location: [facility] Abdomen/Pelvis CTA 03/18/25 18:50 IMPRESSION: 1. No acute or active inflammatory intra-abdominal pathology. 2. Stable saccular infrarenal abdominal aortic aneurysm measuring up to 4.4 cm. 3. Indeterminate 15 mm right adrenal gland nodule, probably adenoma. Suggest follow-up dedicated adrenal CT or MRI in 12 months to assess stability. Reading Location: [facility] Chest X-Ray 03/18/25 19:02 IMPRESSION: 1. New right subclavian approach central venous catheter, tip at the lower SVC. 2. Stable positioning of the endotracheal and enteric tubes. 3. Unchanged lung aeration. Stable cardiomegaly. Reading Location: [facility] Assessment and Plan . Assessment and [...] applicable): CC: Dr. Kamar Grimes MD~ Signed [facility] Work Phone: 1([phone]) 376-921409-16-2025 History and physical note Author Emili Lee [facility] Note Date/Time March 18, 2025 8:45pm [facility] Medical Records Department [address] [place] [address] H&P Exam - Hospitalist 03/18/251937 MR#: [id number] Acct: [id number] Name: OSCAR WOO Rep #:[id number] : 1950 75 From: Emili Lee MD PCP: Dr. Kamar Grimes MD Status:ADM IN Location: ICU ICU02-1 HPI - General General Date of Admission: 03/18/25 Date of Service: 03/18/25 Chief Complaint: Altered mental status HPI Narrative OSCAR WOO, is a 75-year-old female with a history of restless leg syndrome, hypertension, depression, hypertension presented [facility] ED 03/18/2025 due to altered [...] 84.3 H, Lymph % (Auto) 7.4 L, [place] % (Auto) 7.0, Eos % (Auto) 0.0, [...] Clarity Clear, Urine pH 6.0, Ur Specific [place] 1.015, Urine Protein 30 H, Urine Glucose [...] IMPRESSION: No acute intracranial process. Reading Location: [id number]-EA Chest X-Ray 03/18/25 15:35 IMPRESSION: Bilateral low lung volumes. No acute cardiopulmonary abnormality. Reading Location: [id number]-SUUPQ-AE Chest X-Ray 03/18/25 17:44 IMPRESSION: 1. Endotracheal [...] renal disease with delayed excretion. Reading Location: [id number]-[id number]-LK Assessment & Plan Assessment/Plan (1) Shock: (2) [...] started -Patient be admitted to the ICU, condenser tube tender consulted - Patient received 1 L of IV fluids, not given further IV fluids due to recent diagnosis of heart failure and chest x-ray coronary congestion # Acute hypoxic hypercapnic respiratory failure -Patient came in altered, developed progressive hypoxia and was found to be hypercapnic, ultimately required intubation and sedation -Admit to ICU -Workup as above -Scheduled nebs -Will check proBNP - Repair Armature Winder Helper consult #Acute renal failure - Creatinine was [...] Vasopressors started Charges/Coding Visit Charges Inpatient E&M: 34509 Init Hosp L3 03/18/252044 <Electronically signed by Emili Lee MD> Cosigner Signature (if applicable): CC: Dr. Kamar Grimes MD; Dr. Emili Lee MD~ Signed [facility] Work Phone: 1([phone]) 187-128309-16-2025 Evaluation note* Diagnosis Onset Date Resolution Status Admit Date Acute dehydration acute [facility] 2024 7:38pm Acute hypotension acute [facility] 2024 7:38pm Acute kidney injury acute [facility] 2024 7:38pm Acute respiratory failure with hypoxia and hypercapnia acute Sep tember 2024 7:38pm Bacteria in urine acute [facility] 2024 7:38pm Debility acute March 7:38pm Hypothermia acute March 7:38pm Shock acute March 7:38pm Acute on chronic respiratory failure with hypoxia and hypercapnia chronic March 18, 2025 7:38pm [facility] Work Phone: [phone]) [phone] Evaluation note* Diagnosis Onset Date Resolution Status Admit Date Acute dehydration acute [facility] 2024 7:38pm Acute hypotension acute [facility] 2024 7:38pm Acute kidney injury acute [facility] 2024 7:38pm Acute respiratory failure with hypoxia and hypercapnia acute [facility] 2024 7:38pm Bacteria in urine acute [facility] 2024 7:38pm Debility acute March 7:38pm Essential (primary) hypertension acute March 18, 2025 7:38pm Hypothermia acute March 7:38pm Infection of prosthetic shoulder joint acute March 18, 2025 7:38pm Saccular aneurysm acute [facility] 2024 7:38pm Shock acute March 7:38pm Acute on chronic respiratory failure with hypoxia and hypercapnia chronic March 18, 2025 7:38pm [facility] Work Phone: [phone] Evaluation note* Diagnosis Onset Date Resolution Status Admit Date Saccular aneurysm acute [facility] 2024 7:38pm Acute dehydration resolved [facility] 2024 7:38pm Acute hypotension resolved [facility] 2024 7:38pm Acute kidney injury resolved [facility] 2024 7:38pm Acute on chronic respiratory failure with hypoxia and hypercapnia resolved March 18, 2025 7:38pm Acute respiratory failure with hypoxia and hypercapnia resolved Mar 7:38pm Bacteria in urine resolved [facility] 2024 7:38pm Hypothermia resolved March 7:38pm [...] ctober 2024 5:23pm Hyponatremia resolved April 5:23pm [facility] Work Phone: 1([phone]) 788-730409-16-[address] [facility] Medical Records Department [address] [place] [address] H&P Exam - Hospitalist 03/18/251937 MR#: [id number] Acct: [id number] Name: OSCAR WOO Rep #:[id number] : 1950 75 From: Emili Lee MD PCP: Dr. Kamar Grimes MD Status:ADM IN Location: ICU ICU02-1 HPI - General General Date of Admission: 03/18/25 Date of Service: 03/18/25 Chief Complaint: Altered mental status HPI Narrative OSCAR WOO, is a 75-year-old female with a history of restless leg syndrome, hypertension, depression, hypertension presented [facility] ED 03/18/2025 due to altered [...] 84.3 H, Lymph % (Auto) 7.4 L, [place] % (Auto) 7.0, Eos % (Auto) 0.0, [...] Clarity Clear, Urine pH 6.0, Ur Specific [place] 1.015, Urine Protein 30 H, Urine Glucose [...] Reading Location: [facility] Chest X-Ray 03/18/25 15:35 IMPRESSION: Bilateral low lung volumes. No acute cardiopulmonary abnormality. Reading Location: PJJ-EXQYR-FW Chest X-Ray 03/18/25 17:44 IMPRESSION: 1. Endotracheal [...] renal disease with delayed excretion. Reading Location: [id number]-[id number]-LW Assessment & Plan Assessment/Plan (1) Shock: (2) [...] started -Patient be admitted to the ICU, condenser tube tender consulted - Patient received 1 L of IV fluids, not given further IV fluids due to recent diagnosis of heart failure and chest x-ray coronary congestion # Acute hypoxic hypercapnic respiratory failure -Patient came in altered, developed progressive hypoxia and was found to be hypercapnic, ultimatelyrequired intubation and sedation -Admit to ICU -Workup as above -Scheduled nebs -Will check proBNP - Repair Armature Winder Helper consult #Acute renal failure - Creatinine was [...] Vasopressors started Charges/Coding Visit Charges Inpatient E&M: 73486 Init Hosp L3 03/18/252044 Cosigner Signature (if applicable): CC: Dr. Kamar Grimes MD; Dr. Emili Lee MD~ Signed [facility]09-16-2025 Radiology Diagnostic study note [facility] Imaging Services [address] [place], [place] [address] CTA Abd/Pelvis W/WO Contrast MR#: [id number] Acct: [id number] Name: OSCAR WOO Rep #: [id number] : 1950 F 75 From: Kamran Leonard MD PCP: Dr. Kamar Grimes MD Status: ADM IN Study:CTA Abd/Pelvis W/WO Contrast Date of Ex am: 03/18/25 Exam# [id number] Ordering Dr: Mai Levy MD PROCEDURE: CTA [...] 12 months to assess stability. Reading Location: [facility] CC: Dr. Kamar Grimes MD; Dr. Deion Levy MD ~ Environmental Quality Analyst: Signed [facility]09-16-2025 Radiology Diagnostic study note [facility] Imaging Services [address] [place] [address] Chest 1 View (Portable) MR#: [id number] Acct: [id number] Name: OSCAR WOO Rep #: [id number] : 1950 F 75 From: Kamran Leonard MD PCP: Dr. Kamar Grimes MD Status: ADM IN Study:Chest 1 View (Portable) Date of Exam: 03/18/25 Exam# [id number] Ordering Dr: Mai Levy MD PROCEDURE: CHEST [...] Unchanged lung aeration. Stable cardiomegaly. Reading Location: [id number]-II CC: Dr. Kamar Grimes MD; Dr. Deion Levy MD ~ Environmental Quality Analyst: Signed [facility]09-16-2025 Radiology Diagnostic study note [facility] Imaging Services [address] [place] [address] Chest 1 View (Portable) MR#: [id number] Acct: [id number] Name: OSCAR WOO Rep #: [id number] : 1950 F 75 From: Kamran Leonard MD PCP: Dr. Kamar Grimes MD Status: REG ER Study:Chest 1 View (Portable) Date of Exam: 03/18/25 Exam# [id number] Ordering Dr: Mai Levy MD PROCEDURE: CHEST [...] markings and possible interstitial edema. Reading Location: [id number] CC: Dr. Kamar Grimes MD; Dr. Deion Levy MD ~ Environmental Quality Analyst: Signed [facility]09-16-2025 Radiology Diagnostic study note [facility] Imaging Services [address] [place] [address] Abdomen Single View (Portable) MR#: [id number] Acct: [id number] Name: OSCAR WOO Rep #: [id number] : 1950 F 75 From: Kamran Leonard MD PCP: Dr. Kamar Grimes MD Status: REG ER Study:Abdomen Single View (Portable) Date of Exam: 03/18/25 Exam# [id number] Ordering Dr: Mai Levy MD PROCEDURE: ABDOMEN [...] renal disease with delayed excretion. Reading Location: [facility] CC: Dr. Kamar Grimes MD; Dr. Deion Levy MD ~ Environmental Quality Analyst: Signed [facility]09-16-2025 Radiology Diagnostic study note [facility] Imaging Services [address] [place], [place] [address] Chest PA and Lateral MR#: [id number] Acct: [id number] Name: OSCAR WOO Rep #: [id number] : 1950 F 75 From: Janelle Mares MD PCP: Dr. Kamar Grimes MD Status: REG ER Study:Chest PA and Lateral Date of Exam: 03/18/25 Exam# [id number] Ordering Dr: Mai Levy MD PROCEDURE: CHEST [...] volumes. No acute cardiopulmonary abnormality. Reading Location: UMB-QEKGE-OC CC: Dr. Kamar Grimes MD; Dr. Deion Levy MD ~ Environmental Quality Analyst: Signed [facility]09-16-2025 Radiology Diagnostic study note [facility] Imaging Services [address] [place] [address] Brain/Head without Contrast MR#: [id number] Acct: [id number] Name: OSCAR WOO Rep #: [id number] : 1950 F 75 From: Jennifer Shin MD PCP: Dr. Kamar Grimes MD Status: REG ER Study:Brain/Head without Contrast Date of Exa m: 03/18/25 Exam# [id number] Ordering Dr: Mai Levy MD PROCEDURE: BRAIN/HEAD [...] IMPRESSION: No acute intracranial process. Reading Location: IDE-XHAJJY-WS CC: Dr. Kamar Grimes MD; Dr. Deion Levy MD ~ Environmental Quality Analyst: Signed [facility]09-15-2025 [facility] Rad[facility] Diagnostic study note [facility] Imaging Services [address] [place] [address] Chest PA and Lateral MR#: [id number] Acct: [id number] Name: OSCAR WOO Rep #: [id number] : 1950 F 75 From: Kaushal Orozco DO PCP: Dr. Kamar Grimes MD Status: REG CLI Study:Chest PA and Lateral Date of Exam: 02/10/25 Exam# [id number] Ordering Dr: Jennifer Grimes MD PROCEDURE: CHEST [...] compared to the prior exam. Reading Location: QGY-ZFTQF-RZ CC: Dr. Kamar Grimes MD ~ Environmental Quality Analyst: Signed [facility]04-08-2025 Hospital Discharge instructions Additional Instructions Discharge home 10/08/2024, IV ATB thru 10/25/2024, Miguel [facility] PT/SN.[facility] Work Phone: 1(686) 235-425204-07-2025 Progress note Author Sixto Andrade [facility] Note Date/Time October 07, 2024 7:23 pm [facility] Medical Records Department [address] [place] [address] Progress Note - Infect Disease 10/07/241920 MR#: [id number] Acct: [id number] Name: OSCAR WOO Rep #:[id number] : 1950 74 From: Sixto calhoun MD PCP: Dr. Kamar Grimes MD Status:ADM IN Location: [place] [address] Physical Exam Narrative New bilat eye redness [...] Cosigner Signature (if applicable): CC: ~ Signed [facility] Work Phone: 1(632) 710-135404-07-2025 Progress note [facility] Medical Records Department [address] [place] [address] Progress Note - Infect Disease 10/07/241920 MR#: [id number] Acct: [id number] Name: OSCAR WOO Rep #:[id number] : 1950 74 From: Sixto calhoun MD PCP: Dr. Kamar Grimes MD Status:ADM IN Location: [place] [address] Physical Exam Narrative New bilat eye redness [...] Cosigner Signature (if applicable): CC: ~ Signed [facility]04-07-2025 Consult note Author Ashley Sue [facility] Note Date/Time October 07, 2024 2:14 pm [facility] Medical Records Department [address] [place] [address] Pharmacokinetic/Renal -Consult 09/29/24 1013 MR#: [id number] Acct: [id number] Name: OSCAR WOO Rep #:[id number] : 1950 74 From: Ashley Sue PCP: Dr. Kamar Grimes MD Status:ADM IN Y [facility] has [...] Date Sixto Andrade MD CC: ~ Signed [facility] Work Phone: 1(885) 913-458304-07-2025 Consult note Author Tino Law [facility] Note Date/Time October 07, 2024 2:14 pm [facility] Medical Records Department [address] [place] [address] Pharmacokinetic/Renal -Consult 10/01/24 09 MR#: [id number] Acct: [id number] Name: OSCAR WOO Rep #:[id number] : 1950 74 From: Tino Law PCP: Dr. Kamar Grimes MD Status:ADM IN Location: [place] [address] Consult Antibiotic Management Pharmacy has been consulted [...] __ Sixto Andrade MD CC: ~ Signed [facility] Work Phone: 1([phone]) 187-355604-07-2025 Consult note [facility] Medical Records Department [address] [facility] [place] [address] Pharmacokinetic/Renal -Consult 09/29/24 1013 MR#: [id number] Acct: [id number] Name: OSCAR WOO Rep #:[id number] : 1950 74 From: Ashley Sue PCP: Dr. Kamar Grimes MD Status:ADM IN Location: [place] [address] Consult Antibiotic Management Pharmacy has been consulted [...] Date Sixto Andrade MD CC: ~ Signed [facility]04-07-2025 Consult note [facility] Medical Records Department [address] [place] [address] Pharmacokinetic/Renal -Consult 10/01/24 09 MR#: [id number] Acct: [id number] Name: OSCAR WOO Rep #:[id number] : 1950 74 From: Tino Law PCP: Dr. Kamar Grimes MD Status:ADM IN Y Location: [place] [address] Consult Antibiotic Management Pharmacy has been consulted [...] __ Sixto Andrade MD CC: ~ Signed [facility]04-06-2025 Consult note Author Jonh Khalil [facility] Note Date/Time October 06, 2024 12:5 3pm [facility] Medical Records Department [address] [place] [address] Pharmacokinetic/Renal -Consult 10/06/24 0956 MR#: [id number] Acct: [id number] Name: OSCAR WOO Rep #:[id number] : 1950 74 From: Jonh kurtz PCP: Dr. Kamar Grimes MD Status:ADM IN Location: [place] [address] Consult Antibiotic Management Pharmacy has been consulted [...] Date Rodrigo Sanches MD CC: ~ Signed [facility] Work Phone: 1(635) 972-226404-06-2025 Consult note [facility] Medical Records Department [address] [place] [address] Pharmacokinetic/Renal -Consult 10/06/24 0956 MR#: [id number] Acct: [id number] Name: OSCAR WOO Rep #:[id number] : 1950 74 From: Jonh kurtz PCP: Dr. Kamar Grimes MD Status:ADM IN Y Location: [place] [address] Consult Antibiotic Management Pharmacy has been consulted [...] Date Rodrigo Sanches MD CC: ~ Signed [facility]04-01-2025 Discharge summary Author Rodrigo Myron [facility] Note Date/Time October 01, 2024 8:[address] [facility] Medical Records Department [address] [place] [address] Discharge Summary 10/01/241955 MR#: [id number] Acct: [id number] Name: OSCAR WOO Rep #:[id number] : 1950 74 From: Rodrigo Sanches MD PCP: Dr. Kamar Grimes MD Status:ADM IN Location: [place] [address] Providers Date of Admission: 09/18/24 Primary Care [...] 30mg daily, Mirtazapine 15mg qhs, stable chronic chcf use, GDR not recommended. * Dry eyes [...] cbc, vanc trough, and esr. Fax to [phone]. Routine picc care per protocol. rifampin 300 [...] Grimes MD; Dr. Rodrigo Sanches MD~ Signed [facility] Work Phone: [phone]) 568-452504-01-[address] [facility] Medical Records Department [address] [place] [address] Discharge Summary 10/01/241955 MR#: [id number] Acct: [id number] Name: OSCAR WOO Rep #:[id number] : 1950 74 From: Rodrigo Sanches MD PCP: Dr. Kamar Grimes MD Status:ADM IN Location: [place] [address] Providers Date of Admission: 09/18/24 Primary Care [...] 30mg daily, Mirtazapine 15mg qhs, stable chronic chcf use, GDR not recommended. * Dry eyes [...] Discharge home 10/08/2024, IV ATB thru 10/25/2024, [facility] PT/SN. Physical Exam Const alert General [...] cbc, vanc trough, and esr. Fax to [phone]. Routine picc care per protocol. rifampin 300 [...] Grimes MD; Dr. Rodrigo Sanches MD~ Signed [facility]04-01-[facility] Consult note Author Tino Law [facility] Note Date/Time September 27, 2024 9:2 0am [facility] Medical Records Department [address] [place] [address] Pharmacokinetic/Renal -Consult 09/24/24 0947 MR#: [id number] Acct: [id number] Name: ABELOSCAR Nitesh Rep #:[id number] : 1950 74 From: Tino Law PCP: Dr. Kamar Grimes MD Status:ADM IN Y Location: [place] [address] Consult Antibiotic Management Pharmacy has been consulted [...] 0830 09/24/24 0948 <Electronically signed by Tino cahloun> Date _ Tino Law 09/27/24 0920 <Electronically signed by Sixto montoya MD> Cosigner Signature (if applicable): Date Sixto Andrade MD CC: ~ Signed [facility] Work Phone: [phone] Consult note [facility] Medical Records Department [address] [place] [address] Pharmacokinetic/Renal -Consult 09/24/24 0947 MR#: [id number] Acct: [id number] Name: OSCAR WOO Rep #:[id number] : 1950 74 From: Tino Law PCP: Dr. Kamar Grimes MD Status:ADM IN Location: [place] [address] Consult Antibiotic Management Pharmacy has been consulted [...] Date Sixto Andrade MD CC: ~ Signed [facility]03-23-2025 Consult note Author Renee Zarate [facility] Note Date/Time September 22, 2024 11: 33[facility] Medical Records Department [address] [place] [address] Pharmacokinetic/Renal -Consult 09/22/24 1047 MR#: [id number] Acct: [id number] Name: OSCAR WOO Rep #:[id number] : 1950 74 From: Renee Zarate PCP: Dr. Kamar Grimes MD Status:ADM IN Location: [place] [address] Consult Antibiotic Management Pharmacy has been consulted [...] Date Rodrigo Sanches MD CC: ~ Signed [facility] Work Phone: [phone] Consult note [facility] Medical Records Department [address] [place] [address] Pharmacokinetic/Renal -Consult 09/22/24 1047 MR#: [id number] Acct: [id number] Name: WOOOSCAR TORRES Rep #:[id number] : 1950 74 From: Renee Zarate PCP: Dr. Kamar Grimes MD Status:ADM IN Y Location: [place] [address] Consult Antibiotic Management Pharmacy has been consulted [...] Date Rodrigo Sanches MD CC: ~ Signed [facility]03-21-2025 Progress note Author [facility] Note Date/Time September 20, 2024 1:4 3pm [facility] Medical Records Department [address] [place] [address] Progress Note - Pharmacy 09/19/24 1427 MR#: [id number] Acct: [id number] Name: OSCAR WOO Rep #:[id number] : 1950 74 From: Renee Zarate PCP: Dr. Kamar Grimes MD Status:ADM IN Location: [place] [address] TCU RX Drug Regimen Review Subjective/Objective Subjective/Objective [...] 10 Mg Tablet PO 10 mg QHS [facility] Administration Metoprolol Tartrate 25 mg 09/18/24 22:00 09/19/24 07:50 Metoprolol Tartrate 25 Mg Tablet PO 25 mg BID KACEY Administration Protocol Mirtazapine 15 mg 09/18/24 22:00 09/18/24 22:00 Mirtazapine 15 Mg Tablet PO 15 mg QHS [facility] Administration Oxycodone HCl 5 - 10 mg 09/18/24 13:16 09/19/24 07:49 Oxycodone 5 Mg Tablet PO 10 mg Q4H PRN PRN Administration Pain Score 4-10 Pramipexole Dihydrochloride 1 mg 09/18/24 22:00 09/18/24 22:00 Pramipexole Di-Hcl 1 Mg Tablet PO 1 mg QHS [facility] Administration Pramipexole Dihydrochloride 0.5 mg 09/18/24 17:00 09/18/24 16:52 Pramipexole Di-Hcl 0.5 Mg Tablet PO 0.5 mg DINNER [facility] Administration Rifampin 300 mg 09/18/24 22:00 09/19/24 [...] Vancomycin Trough/Random Due [facility] 09/20/24 09:30 DAILY [facility] Problem List Infection of prosthetic shoulder joint [...] Signature (if applicable): Date cc: ~* Signed [facility] Work Phone: 1(263) 582-778903-21-2025 Progress note Author Sixto Lupe [facility] Note Date/Time September 20, 2024 1:[address] [facility] Medical Records Department [address] [place] [address] Progress Note - Infect Disease 09/20/24 1336 MR#: [id number] Acct: [id number] Name: OSCAR WOO Rep #:[id number] : 1950 74 From: Sixto calhoun MD PCP: Dr. Kamar Grimes MD Status:ADM IN Location: [place] [address] Physical Exam Narrative Feeling better, shoulder improving, [...] course suppressive po abx. Will follow 09/20/24 1710 <Electronically signed by Sixto Andrade MD> Cosigner Signature (if applicable): CC: ~ Signed [facility] Work Phone: 1([phone] 470-849903-21-2025 Consult note Author Jonh Khalil [facility] Note Date/Time September 20, 2024 1:2 6pm [facility] Medical Records Department [address] [place] [address] Pharmacokinetic/Renal -Consult 09/20/24 0902 MR#: [id number] Acct: [id number] Name: OSCAR WOO Rep #:[id number] : 1950 74 From: Jonh kurtz PCP: Dr. Kamar Grimes MD Status:ADM IN Location: [place] [address] Consult Antibiotic Management Pharmacy has been consulted [...] Date Rodrigo Sanches MD CC: ~ Signed [facility] Work Phone: 1(166) 324-384403-21-[address] [facility] Medical Records Department [address] [place] [address] Progress Note - Pharmacy 09/19/24 1427 MR#: [id number] Acct: [id number] Name: OSCAR WOO Rep #:[id number] : 1950 74 From: Renee Zarate PCP: Dr. Kamar Grimes MD Status:ADM IN Location: [place] [address]-1 TCU RX Drug Regimen Review Subjective/Objective Subjective/Objective [...] Vancomycin Trough/Random Due [facility] 09/20/24 09:30 DAILY [facility] Problem List Infection of prosthetic shoulder joint [...] Signature (if applicable): Date cc: ~* Signed [facility]03-21-[address] [facility] Medical Records Department [address] [facility] [place] [address] Progress Note - Infect Disease 09/20/24 1336 MR#: [id number] Acct: [id number] Name: OSCAR WOO Rep #:[id number] : 1950 74 From: Sixto calhoun MD PCP: Dr. Kamar Grimes MD Status:ADM IN Location: [facility] TCU06-1 Physical Exam Narrative Feeling better, [...] Cosigner Signature (if applicable): CC: ~ Signed [facility]03-21-2025 Consult note [facility] Medical Records Department [address] [place] [address] Pharmacokinetic/Renal -Consult 09/20/24 0902 MR#: [id number] Acct: [id number] Name: OSCAR WOO Rep #:[id number] : 1950 74 From: Jonh kurtz PCP: Dr. Kamar Grimes MD Status:ADM IN Location: [place] [address] Consult Antibiotic Management Pharmacy has been consulted [...] result of 10.7 so will increase dose [id number] IV q24h. Will check another trough before the 3rd dose. Pharmacy Service will continue to monitor and adjust dosing as required. Follow-Up Labs Follow-Up Labs: Trough: Vancomycin Date/Time Labs Ordered Labs to be done on [date and time ordered]: 09/22/24 08:30 09/20/24 0905 erg> Date _ Jonh Khalil 09/20/24 1326 D> Cosigner Signature (if applicable): Date Rodrigo Sanches MD CC: ~ [facility]03-20-2025 Progress note Author Sixto Andrade [facility] Note Date/Time September 19, 2024 7:5 9am [facility] Medical Records Department [address] [place] [address] Progress Note - Infect Disease 09/19/24 0757 MR#: [id number] Acct: [id number] Name: OSCAR WOO Rep #:[id number] : 1950 74 From: Sixto calhoun MD PCP: Dr. Kamar Grimes MD Status:ADM IN Location: [facility] TCU06-1 ID ID: Route of nutrition/ [...] Cosigner Signature (if applicable): CC: ~ Signed [facility] Work Phone: 1(368) 231-607803-20-2025 Progress note [facility] Medical Records Department [address] [place] [address] Progress Note - Infect Disease 09/19/24756 MR#: [id number] Acct: [id number] Name: OSCAR WOO Rep #:[id number] : 1950 74 From: Sixto calhoun MD PCP: Dr. Kamar Grimes MD Status:ADM IN Location: [facility] TCU06-1 ID ID: Route of nutrition/ [...] Cosigner Signature (if applicable): CC: ~ Signed [facility]03-19-2025 History and physical note Author Rodrigo Sanches [facility] Note Date/Time September 18, 2024 8:5 7pm [facility] Medical Records Department [address] [place] [address] History & Physical Exam 09/18/242035 MR#: [id number] Acct: [id number] Name: OSCAR WOO Rep #:[id number] : 1950 74 From: Rodrigo Sanches MD PCP: Dr. 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 * Dry eyes [...] Grimes MD; Dr. Rodrigo Sanches MD~ Signed [facility] Work Phone: 1(116) 593-419203-19-[address] [facility] Medical Records Department [address] [place] [address] History & Physical Exam 09/18/242035 MR#: [id number] Acct: [id number] Name: OSCAR WOO Rep #:[id number] : 1950 74 From: Rodrigo Sanches MD PCP: Dr. 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 * Dry eyes [...] Grimes MD; Dr. Rodrigo Sanches MD~ Signed [facility]03-19-2025 [facility]03-19-2025 [facility]03-19-2025 Consult note [facility] Medical Records Department [address] [place] [address] Counseling Note - Pharmacy 09/18/24 1009 MR#: [id number] Acct: [id number] Name: OSCAR WOO Rep #:[id number] : 1950 74 From: Ashley Sue PCP: Dr. Kamar Grimes MD Status:ADM IN Location: [address] Med Reconciliation Pharmacy Service has performed [...] Signature (if applicable): Date CC: ~ Signed [facility]03-19-2025 Consult note Author Ashley Sue [facility] Note Date/Time September 18, 2024 12: 30pm [facility] Medical Records Department [address] [place] [address] Counseling Note - Pharmacy 09/18/24 1009 MR#: [id number] Acct: [id number] Name: OSCAR WOO Rep #:[id number] : 1950 74 From: Ashley Sue PCP: Dr. Kamar Grimes MD Status:ADM IN Location: [facility] [place] Med Reconciliation Pharmacy Service has performed discharge [...] Signature (if applicable): Date CC: ~ Signed [facility] Work Phone: 1(392) 137-510003-19-2025 Progress note Author Jamie Jiang [facility] Note Date/Time September 18, 2024 9:1 1am [facility] Medical Records Department [address] [place] [address] Progress Note - Hospitalist 09/18/24 0908 MR#: [id number] Acct: [id number] Name: OSCAR WOO Rep #:[id number] : 1950 74 From: Jamie Jiang DO PCP: Dr. Kamar Grimes MD Status:ADM IN Location: [place] UO473-6 Reason for Visit Reason for Visit: Diagnoses [...] 50 minutes Charges/Coding Visit Charges Inpatient E&M: 27742 Subs Hosp L3 09/18/24 0911 <Electronically signed by Jamie Jiang DO> Cosigner Signature (if applicable): CC: ~ Signed [facility] Work Phone: 1(862) 936-492003-19-2025 Progress note Author Zhanna Ivy [facility] Note Date/Time September 18, 2024 7:5 5am [facility] Medical Records Department [address] [place] [address] Progress Note - Orthopedic 09/18/24 0748 MR#: [id number] Acct: [id number] Name: OSCAR WOO Rep #:[id number] : 1950 74 From: Zhanna CASTILLO PCP: Dr. Kamar Grimes MD Status:ADM IN Location: [place] ND434-6 Subjective Subjective Patient was lying comfortably in bed. Patient was very excited that she got accepted to [facility] TCU and patient was eager [...] other internal joint prosthesis, initial encounter: 09/18/24 3405 <Electronically signed by Zhanna CASTILLO> Yanick Signature (if applicable): CC: ~ Signed [facility] Work Phone: 1(793) 431-949203-19-2025 Consult note Author Tete Kaminski [facility] Note Date/Time September 18, 2024 7[facility] [address] [place] [address] Pharmacokinetic/Renal -Consult 09/18/24 0744 MR#: [id number] Acct: [id number] Name: OSCAR WOO Rep #:[id number] : 1950 74 From: Tete Loving PCP: Dr. Kamar Grimes MD Status:ADM IN Location: [place] [address]-1 Consult Antibiotic Management Pharmacy has been consulted [...] and time ordered]: 09/20/24 @ 0700 09/18/24 7349 <Electronically signed by Tete Kaminski> Date _ Tete Kaminski Cosigner Signature (if applicable): Date CC: ~ Signed [facility] Work Phone: 1(733) 414-387503-19-[address] [facility] Medical Records Department [facility] [place] [address] Progress Note - Hospitalist 09/18/24 09 MR#: [id number] Acct: [id number] Name: OSCAR WOO Rep #:[id number] : 1950 74 From: Jamie Jiang DO PCP: Dr. Kamar Grimes MD Status:ADM IN Location: [place] [address] Reason for Visit Reason for Visit: Diagnoses [...] [facility] [...] 50 minutes Charges/Coding Visit Charges Inpatient E&M: 21937 [facility] Hosp L3 09/18/24 0911 Cosigner Signature (if applicable): CC: ~ Signed [facility]03-19-[address] [facility] Medical Records Department [address] [place] [address] Progress Note - Orthopedic 09/18/24 0748 MR#: [id number] Acct: [id number] Name: OSCAR WOO Rep #:[id number] : 1950 74 From: Zhanna CASTILLO PCP: Dr. Kamar Grimes MD Status:ADM IN Location: [place] GC297-4 Subjective Subjective Patient was lying comfortably in bed. Patient was very excited that she got accepted to [facility] TCU and patient was eager [...] physical therapy following her 2-week visit at [facility]. Patient was encouraged to call with any questions, concerns, new problems. (2) Infection and inflammatory reaction due to other internal joint prosthesis, initial encounter: 09/18/24 2513 Cosigner Signature (if applicable): CC: ~ Signed [facility]03-19-2025 Consult note [facility] Medical Records Department [address] [place] [address] Pharmacokinetic/Renal -Consult 09/18/24 0744 MR#: [id number] Acct: [id number] Name: OSCAR WOO Rep #:[id number] : 1950 74 From: Tete Loving PCP: Dr. Kamar Grimes MD Status:ADM IN Location: [place] GY181-3 Consult Antibiotic Management Pharmacy has been consulted [...] Signature (if applicable): Date CC: ~ Signed [facility]03-18-2025 Discharge summary Author Jamie Jiang [facility] Note Date/Time September 17, 2024 5:2 7pm [facility] Medical Records Department [address] [place] [address] Transfer to [facility] MR#: [id number] Acct: [id number] Name: OSCAR WOO Rep #:[id number] : 1950 74 From: Jamie Jiang DO PCP: Dr. Kamar Grimes MD Status:ADM IN Certification of patient admission REQUIRED AT TIME OF ADMISSION. I CERTIFY THAT POST-HOSPITAL ECF SERVICES ARE REQUIRED TO BE GIVEN ON AN IN-PATIENT BASIS BECAUSE OF THE ABOVE NAMED PATIENT'S NEED FOR PRISON CARE ON A CONTINUING BASIS FOR THE [...] cbc, vanc trough, and esr. Fax to [phone]. Routine picc care per protocol. rifampin 300 [...] in before D/C Order can be placed): [facility] 09/17/247 <Electronically signed by Jamie Jiang DO> Cosigner Signature (if applicable): CC: Dr. Kamar Grimes MD; Dr. Jamie Jiang DO; Dr. Emili Lee MD; Dr. Sixto Andrade MD ~ [facility] Work Phone: 1(855) 885-138103-18-2025 Progress note Author Jamie Jiang [facility] Note Date/Time September 17, 2024 5:[address] [facility] Medical Records Department [address] [place] [address] Progress Note - Hospitalist 09/17/24 1709 MR#: [id number] Acct: [id number] Name: OSCAR WOO Rep #:[id number] : 1950 74 From: Jamie Jiang DO PCP: Dr. Kamar Grimes MD Status:ADM IN Location: [place] CZ222-4 Reason for Visit Reason for Visit: Diagnoses [...] a bed available for her in TCU [facility] care tomorrow. Patient had some gas pains [...] 35 minutes Charges/Coding Visit Charges Inpatient E&M: 71805 Subs Hosp L2 09/17/24 1713 <Electronically signed by Jamie Jiang DO> Cosigner Signature (if applicable): CC: ~ Signed [facility] Work Phone: 1(639) 803-460003-18-[address] [facility] Medical Records Department [address] [place] [address] Transfer to [facility] MR#: [id number] Acct: [id number] Name: OSCAR WOO Rep #:[id number] : 1950 74 From: Jamie Jiang DO PCP: Dr. Kamar Grimes MD Status:ADM IN Certification of patient admission REQUIRED AT TIME OF ADMISSION. I CERTIFY THAT POST-HOSPITAL ECF SERVICES ARE REQUIRED TO BE GIVEN ON AN IN-PATIENT BASIS BECAUSE OF THE ABOVE NAMED PATIENT'S NEED FOR PRISON CARE ON A CONTINUING BASIS FOR THE [...] cbc, vanc trough, and esr. Fax to [phone]. Routine picc care per protocol. rifampin 300 [...] in before D/C Order can be placed): [facility] 09/17/24 1727 Cosigner Signature (if applicable): CC: Dr. Kamar Grimes MD; Dr. Jamie Jiang DO; Dr. Emili Lee MD; Dr. Sixto Andrade MD ~ [facility]03-18-2025 Progress note [facility] Medical Records Department [address] [place] [address] Progress Note - Hospitalist 09/17/24 1709 MR#: [id number] Acct: [id number] Name: OSCAR WOO Rep #:[id number] : 1950 74 From: Jamie Jiang DO PCP: Dr. Kamar Grimes MD Status:ADM IN Location: [place] [address] Reason for Visit Reason for Visit: Diagnoses [...] [facility] Patient had some gas pains [...] 35 minutes Charges/Coding Visit Charges Inpatient E&M: 97495 Subs Hosp L2 09/17/24 1713 Cosigner Signature (if applicable): CC: ~ Signed [facility]03-18-2025 Progress note Author Zhanna Ivy [facility] Note Date/Time September 17, 2024 1:[address] [facility] Medical Records Department [address] [place] [address] Progress Note - Orthopedic 09/17/24 1242 MR#: [id number] Acct: [id number] Name: OSCAR WOO Rep #:[id number] : 1950 74 From: Zhanna CASTILLO PCP: Dr. Kamar Grimes MD Status:ADM IN Location[place] [facility] [place]O650-6 Subjective Subjective Patient appears to be comfortable [...] Yanick Signature (if applicable): cc: ~* Signed [facility] Work Phone: 1(153) 527-210003-18-2025 Progress note [facility] Medical Records Department [address] [place] [address] Progress Note - Orthopedic 09/17/24 1242 MR#: [id number] Acct: [id number] Name: OSCAR WOO Rep #:[id number] : 1950 74 From: Zhanna CASTILLO PCP: Dr. Kamar Grimes MD Status:ADM IN Location: [facility] PH620-6 Subjective Subjective Patient appears to be comfortable [...] Cosigner Signature (if applicable): cc: ~* Signed [facility]03-18-2025 Progress note Author Sixto Andrade [facility] Note Date/Time September 17, 2024 10: 04am [facility] Medical Records Department [address] [place] [address] Progress Note - Infect Disease 09/17/24 1003 MR#: [id number] Acct: [id number] Name: OSCAR WOO Rep #:[id number] : 1950 74 From: Sixto calhoun MD PCP: Dr. Kamar Grimes MD Status:ADM IN Location: [facility] YS097-6 Physical Exam Narrative Feeling ok. One episode [...] diarrhea chronically, cdiff sent. Will follow, d/w high risk case manager 09/17/24 1004 <Electronically signed by Sixto Andrade MD> Cosigner Signature (if applicable): CC: ~ Signed [facility] Work Phone: 1(834) 178-679003-18-[address] [facility] Medical Records Department [address] [place] [address] Progress Note - Infect Disease 09/17/24 1003 MR#: [id number] Acct: [id number] Name: OSCAR WOO Rep #:[id number] : 1950 74 From: Sixto calhoun MD PCP: Dr. Kamar Grimes MD Status:ADM IN Location: [facility] XZ805-7 Physical Exam Narrative Feeling ok. One episode [...] diarrhea chronically, cdiff sent. Will follow, d/w high risk case manager 09/17/24 1004 Cosigner Signature (if applicable): CC: ~ Signed [facility]03-17-2025 Progress note Author Claire Mayorga [facility] Note Date/Time September 16, 2024 9:5 7pm [facility] Medical Records Department [address] [place] [address] Progress Note - Hospitalist 09/16/242156 MR#: [id number] Acct: [id number] Name: OSCAR WOO Rep #:[id number] : 1950 74 From: Claire Mayorga MD PCP: Dr. Kamar Grimes MD Status:ADM IN Location: [place] [address] Hospitalist Note Patient with onset diarrhea, several episodes per staff. On abx therapy for several days with ID following. Suspect likely abx related but to be cautious will obtain cdiff and if negative will have loperamide PRN. 09/16/242156 <Electronically signed by Claire Mayorga MD> Cosigner Signature (if applicable): CC: ~ Signed [facility] Work Phone: 1(706) 666-736303-17-2025 Progress note [facility] Medical Records Department [address] [place] [address] Progress Note - Hospitalist 09/16/242156 MR#: [id number] Acct: [id number] Name: OSCAR WOO Rep #:[id number] : 1950 74 From: Claire Mayorga MD PCP: Dr. Kamar Grimes MD Status:ADM IN Location: [place] [address] Hospitalist Note Patient with onset diarrhea, several episodes per staff. On abx therapy for several days with ID following. Suspect likely abx related but to be cautious will obtain cdiff and if negative will have loperamide PRN. 09/16/242156 Cosigner Signature (if applicable): CC: ~ Signed [facility]03-17-2025 Progress note Author Jamie [facility] Note Date/Time September 16, 2024 4:[address] [place] [address] System Medical Records Department [address] [facility] [place] [address] Progress Note - Hospitalist 09/16/24 160 MR#: [id number] Acct: [id number] Name: OSCAR WOO Rep #:[id number] : 1950 74 From: Jamie Jiang DO PCP: Dr. Kamar Grimes MD Status:ADM IN Location: [place] [address] Reason for Visit Reason for Visit: Diagnoses [...] to go to a rehab facility or half-way facility. Objective Data Objective Data Vital Signs: [...] 76.9 H, Lymph % (Auto) 11.6 L, Stanislaus % (Auto) 7.0, Eos % (Auto) 3.2, [...] 35 minutes Charges/Coding Visit Charges Inpatient E&M: 58111 Subs Hosp L2 09/16/24 1611 <Electronically signed by Jamie Jiang DO> Cosigner Signature (if applicable): CC: ~ Signed [facility] Work Phone: 1([phone]) 533-639803-17-2025 Consult note Author Sixto Andrade [facility] Note Date/Time September 16, 2024 2:5 1pm [facility] Medical Records Department [address] [place] [address] Consultation - Infectious Dx 09/16/24 1444 MR#: [id number] Acct: [id number] Name: OSCAR WOO Rep #:[id number] : 1950 74 From: Sixto calhoun MD PCP: Dr. Kamar Grimes MD Status:ADM IN Location[place] [facility] [place]Q359-1 Assessment & Plan Assessment/Plan (1) Infection and [...] rx, d/w Dr. Cavanaugh on 09/13/24, d/w high risk case manager this AM HPI Consult Data Date of [...] 76.9 H, Lymph % (Auto) 11.6 L, Stanislaus % (Auto) 7.0, Eos % (Auto) 3.2, [...] Preliminary No growth in 48 hours. 09/16/24 1450 <Electronically signed by Sixto Andrade MD> Cosigner Signature (if applicable): CC: Dr. Kamar Grimes MD; Dr. Fahad Cavanaugh MD~ Signed [facility] Work Phone: 1(225) [phone] [facility] Medical Records Department [address] [place] [address] Progress Note - Hospitalist 09/16/24 1603 MR#: [id number] Acct: [id number] Name: OSCAR WOO Rep #:[id number] : 1950 74 From: Jamie Jiang DO PCP: Dr. Kamar Grimes MD Status:ADM IN Location: [facility] XX626-3 Reason for Visit Reason for Visit: Diagnoses [...] to go to a rehab facility or half-way facility. Objective Data Objective Data Vital Signs: [...] 76.9 H, Lymph % (Auto) 11.6 L, Stanislaus % (Auto) 7.0, Eos % (Auto) 3.2, [...] 35 minutes Charges/Coding Visit Charges Inpatient E&M: 36435 Subs Hosp L2 09/16/24 1611 Cosigner Signature (if applicable): CC: ~ Signed [facility]03-17-2025 Progress note Author Fahad Cavanaugh [facility] Note Date/Time September 16, 2024 2:[address] [facility] Medical Records Department [address] [place] [address] Progress Note - Orthopedic 09/16/24 1357 MR#: [id number] Acct: [id number] Name: OSCAR WOO Rep #:[id number] : 1950 74 From: Fahad Chi PCP: Dr. Kamar Grimes MD Status:ADM IN Location: [facility] XH796-0 Subjective Subjective Patient doing well. Denies any chest pain or calf pain. No new shortness of breath. Remains on 2 L of oxygen. Infectious ease was able to the patient thismorning and placed patient on vancomycin IV for 6 weeks. PICC line is in place. Discharge planning has commenced. Patient will likely require half-way upon discharge to help administer IV antibiotics [...] 76.9 H, Lymph % (Auto) 11.6 L, Stanislaus % (Auto) 7.0, Eos % (Auto) 3.2, [...] attempting to look for placement in a half-way facility. Once we have an accepting facilitywill need to obtain pre-CERT. Patient demonstrates an understanding. [facility] Office: 09/16/24 2125 <Electronically signed by Fahad Cavanaugh MD> Cosigner Signature (if applicable): CC: ~ Signed [facility] Work Phone: [phone] 871-581903-17-[address] [facility] Medical Records Department [address] [place] [address] Consultation - Infectious Dx 09/16/24 1444 MR#: [id number] Acct: [id number] Name: OSCAR WOO Rep #:[id number] : 1950 74 From: Sixto calhoun MD PCP: Dr. Kamar Grimes MD Status:ADM IN Location: [facility] CO980-0 Assessment & Plan Assessment/Plan (1) Infection and [...] rx, d/w Dr. Cavanaugh on 09/13/24, d/w high risk case manager this AM HPI Consult Data Date of [...] 76.9 H, Lymph % (Auto) 11.6 L, Stanislaus % (Auto) 7.0, Eos % (Auto) 3.2, [...] Grimes MD; Dr. Fahad Cavanaugh MD~ Signed [facility]03-17-[address] [facility] Medical Records Department [address] [place] [address] Progress Note - Orthopedic 09/16/24 1357 MR#: [id number] Acct: [id number] Name: OSCAR WOO Rep #:[id number] : 1950 74 From: Fahad Chi PCP: Dr. Kamar Grimes MD Status:ADM [facility] Subject[facility] Subjective Patient doing well. Denies any chest pain or calf pain. No new shortness of breath. Remains on 2 L of oxygen. Infectious ease was able to the patient thismorning and placed patient on vancomycin IV for 6 weeks. PICC line is in place. Discharge planning has commenced. Patient will likely require half-way upon discharge to help administer IV antibiotics [...] 76.9 H, Lymph % (Auto) 11.6 L, Stan[place]aus % (Auto) 7.0, Eos % (Auto) 3.2, [...] attempting to look for placement in a half-way facility. Once we have an accepting facilitywill need to obtain pre-CERT. Patient demonstrates an understanding. [facility] Office: 09/16/24 1407 Cosigner Signature (if applicable): CC: ~ Signed [facility]03-17-2025 Consult note Author Tino Law [facility] Note Date/Time September 16, 2024 7:0 3am [facility] Medical Records Department [address] [place] [address] Pharmacokinetic/Renal -Consult 09/15/24 1424 MR#: [id number] Acct: [id number] Name: OSCAR WOO Rep #:[id number] : 1950 74 From: Tino Law PCP: Dr. Kamar Grimes MD Status:ADM IN Location: [place] [address] Consult Antibiotic Management Pharmacy has been consulted [...] Date Fahad Cavanaugh MD CC: ~ Signed [facility] Work Phone: 1([phone]) 414-578403-17-2025 Consult note Author Tino Law [facility] Note Date/Time September 16, 2024 7:0 3am [facility] Medical Records Department [address] [place] [address] Pharmacokinetic/Renal -Consult 09/16/24 0658 MR#: [id number] Acct: [id number] Name: OSCAR WOO Rep #:[id number] : 1950 74 From: Tino Law PCP: Dr. Kamar Grimes MD Status:ADM IN Location: [place] 294193-1 Consult Antibiotic Management Pharmacy has been consulted [...] Date Fahad Cavanaugh MD CC: ~ Signed [facility] Work Phone: [phone] 185-492703-17-2025 Consult note [facility] Medical Records Department [address] [place] [address] Pharmacokinetic/Renal -Consult 09/15/24 1424 MR#: [id number] Acct: [id number] Name: OSCAR WOO Rep #:[id number] : 1950 74 From: Tino Law PCP: Dr. Kamar Grimes MD Status:ADM IN Y Location: [place] [address] Consult Antibiotic Management Pharmacy has been consulted [...] Date Fahad Cavanaugh MD CC: ~ Signed [facility]03-17-2025 Consult note [facility] Medical Records Department [address] [place] [address] Pharmacokinetic/Renal -Consult 09/16/24 0658 MR#: [id number] Acct: [id number] Name: OSCAR WOO Rep #:[id number] : 1950 74 From: Tino Law PCP: Dr. Kamar Grimes MD Status:ADM IN Y Location: [facility] XP946-7 Consult Antibiotic Management Pharmacy has been consulted [...] Date Fahad Cavanaugh MD CC: ~ Signed [facility]03-16-2025 Progress note Author Emili Lee [facility] Note Date/Time September 15, 2024 11: 30am [facility] Medical Records Department [address] [place] [address] Progress Note - Hospitalist 09/15/24 0804 MR#: [id number] Acct: [id number] Name: OSCAR WOO Rep #:[id number] : 1950 74 From: Emili Lee MD PCP: Dr. Kamar Grimes MD Status:ADM [facility] Reason for Visit Reason for Visit: Diagnoses [...] 36 Minutes Charges/Coding Visit Charges Inpatient E&M: 71943 Subs Hosp L2 09/15/24 1130 <Electronically signed by Emili Lee MD> Cosigner Signature (if applicable): CC: ~ Signed [facility] Work Phone: [phone] [facility] Medical Records Department [address] [place] [address] Progress Note - Hospitalist 09/15/24 0804 MR#: [id number] Acct: [id number] Name: OSCAR WOO Nitesh Rep #:[id number] : 1950 74 From: Emili Lee MD PCP: Dr. Kamar Grimes MD Status:ADM IN Location: [facility] CS796-7 Reason for Visit Reason for Visit: Diagnoses [...] 36 Minutes Charges/Coding Visit Charges Inpatient E&M: 07006 Subs Hosp L2 09/15/24 1130 Cosigner Signature (if applicable): CC: ~ Signed [facility]03-16-2025 Progress note Author Fahad Cavanaugh [facility] Note Date/Time September 15, 2024 8:[address] [facility] Medical Records Department [address] [place] [address] Progress Note - Orthopedic 09/15/24 08 MR#: [id number] Acct: [id number] Name: OSCAR WOO Rep #:[id number] : 1950 74 From: Fahad Chi PCP: Dr. Kamar Grimes MD Status:ADM IN [facility] Subjective Subjective Patient doing well overall. No [...] PICC line and home antibiotic regimen. [facility] Office: 09/15/24818 <Electronically signed by Fahad Cavanaugh MD> Cosigner Signature (if applicable): CC: ~ Signed [facility] Work Phone: 1([phone]) 168-612903-16-2025 Radiology Diagnostic study note [facility] Imaging Services [address] [facility] [address] [place], [place] [id number] Chest PA and Lateral MR#: [id number] Acct: [id number] Name: OSCAR WOO Rep #: [id number] : 1950 F 74 From: Abdulkadir Goodman DO PCP: Dr. Kamar Grimes MD Status: ADM IN Study:Chest PA and Lateral Date of Exam: 09/15/24 Exam# [id number] Ordering Dr: Wenceslao Lee MD PROCEDURE: Chest [...] Grimes MD; Dr. Emili Lee MD ~ Environmental Quality Analyst: Signed [facility]03-16-[address] [facility] Medical Records Department [address] [place] [address] Progress Note - Orthopedic 09/15/24 0811 MR#: [id number] Acct: [id number] Name: OSCAR WOO Rep #:[id number] : 1950 74 From: Fahad Chi PCP: Dr. Kamar Grimes MD Status:ADM IN Location: [place] [address] Subjective Subjective Patient doing well overall. No [...] PICC line and home antibiotic regimen. [facility] Office: 09/15/24 0819 Cosigner Signature (if applicable): CC: ~ Signed [facility]03-15-2025 Evaluation note* Diagnosis Onset Date [...] 12:40pm Hypertension chronic September 14, 2024 12:40pm [facility] Work Phone: [phone] 160-538503-15-2025 Evaluation note* Diagnosis Onset Date Resolution Status [...] 18 12:40pm Insomnia inactive September 18 12:40pm [facility] Work Phone: 1(886) 996-369203-15-2025 Progress note Author Emili Lee [facility] Note Date/Time September 14, 2024 12: 34pm [facility] Medical Records Department [address] [place] [address] Progress Note - Hospitalist 09/14/24 0752 MR#: [id number] Acct: [id number] Name: OSCAR WOO Rep #:[id number] : 1950 74 From: Emili Lee MD PCP: Dr. Kamar Grimes MD Status:ADM NATE Location: [place] [address] Reason for Visit Reason for Visit: Diagnoses [...] 09/13/24 17:00 IMPRESSION: See above Reading Location: [facility] Physical Exam Narrative General: Alert, oriented, [...] 35 Minutes Charges/Coding Visit Charges Inpatient E&M: 29552 Subs Hosp L2 09/14/24 1234 <Electronically signed by Emili Lee MD> Cosigner Signature (if applicable): CC: ~ Signed [facility] Work Phone: 1(912) 414-890203-15-2025 Progress note [facility] Medical Records Department [address] [place] [address] Progress Note - Hospitalist 09/14/24 4912 MR#: [id number] Acct: [id number] Name: OSCAR WOO Rep #:[id number] : 1950 74 From: Emili Lee MD PCP: Dr. Kamar Grimes, MD Status:ADM NATE Location: [facility] ZH892-1 Reason for Visit Reason for Visit: Diagnoses [...] 09/13/24 17:00 IMPRESSION: See above Reading Location: [facility] Physical Exam Narrative General: Alert, oriented, [...] 35 Minutes Charges/Coding Visit Charges Inpatient E&M: 33214 Subs Hosp L2 09/14/24 1234 Cosigner Signature (if applicable): CC: ~ Signed [facility]03-15-2025 Progress note Author Fahad Cavanaugh [facility] Note Date/Time September 14, 2024 8:[address] [facility] Medical Records Department [address] [place] [address] Progress Note - Orthopedic 09/14/24 0831 MR#: [id number] Acct: [id number] Name: OCSAR WOO Rep #:[id number] : 1950 74 From: Fahad Chi PCP: Dr. Kamar Grimes MD Status:ADM NATE Location: [place] [address] Subjective Subjective Patient is doing well overall. [...] 09/13/24 17:00 IMPRESSION: See above Reading Location: [facility] Physical Exam Narrative Left upper extremity: [...] PICC line and home antibiotic regimen. [facility] Office: 09/14/24 0848 <Electronically signed by Fahad Cavanaugh MD> Natalieer Signature (if applicable): CC: ~ Signed [facility] Work Phone: 1([phone]) 844-933703-15-2025 Progress note Author Abdirashid Carrasquillo [facility] Note Date/Time September 14, 2024 6:[address] [facility] Medical Records Department [address] [place] [address] Progress Note - Hospitalist 09/13/241957 MR#: [id number] Acct: [id number] Name: OSCAR WOO Rep #:[id number] : 1950 74 From: Abdirashid Lloyd DO PCP: Dr. Kamar Grimes MD Status:ADM NATE Location: [place] [address] Reason for Visit Reason for Visit: Diagnoses [...] 09/13/24 17:00 IMPRESSION: See above Reading Location: [facility] Physical Exam Const alert, oriented x3 [...] Cosigner Signature (if applicable): CC: ~ Signed [facility] Work Phone: [phone] 826-782503-15-2025 Progress note [facility] Medical Records Department [address] [place] [address] Progress Note - Orthopedic 09/14/24 0831 MR#: [id number] Acct: [id number] Name: OSCAR WOO Rep #:[id number] : 1950 74 From: Fahad Chi PCP: Dr. Kamar Grimes MD Status:ADM NATE Location: [place] [address] Subjective Subjective Patient is doing well overall. [...] [facility] Office: 09/14/24 0842 Cosigner Signature (if applicable): CC: ~ Signed [facility]03-15-2025 Procedure note [facility] Medical Records Department [address] [place] [address] Operative Report 09/13/24 1620 MR#: [id number] Acct: [id number] Name: OSCAR WOO Rep #:[id number] : 1950 74 From: Fahad Chi PCP: Dr. 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 Their intimate [...] Hose VTE Pharm Prophylaxis ordered?: Yes 09/14/24 6462 Cosigner Signature (if applicable): CC: Dr. Kamar Grimes MD; Dr. Emili Lee MD; Dr. Fahad Cavanaugh MD~ Signed [facility]03-15-[address] [facility] Medical Records Department [address] [place] [address] Progress Note - Hospitalist 09/13/241957 MR#: [id number] Acct: [id number] Name: OSCAR WOO Rep #:[id number] : 1950 74 From: Abdirashid Lloyd DO PCP: Dr. Kamar Grimes MD Status:ADM NATE Location: [place] [address] Reason for Visit Reason for Visit: Diagnoses [...] 09/13/24 17:00 IMPRESSION: See above Reading Location: [facility] Physical Exam Const alert, oriented x3 [...] Cosigner Signature (if applicable): CC: ~ Signed [facility]03-14-2025 Consult note Author Mercedes Patel [facility] Note Date/Time September 13, 2024 7:[facility] [address] [place] [address] Pharmacokinetic/Renal -Consult 09/13/241932 MR#: [id number] Acct: [id number] Name: OSCAR WOO Rep #:[id number] : 1950 74 From: Mercedes Patel PCP: Dr. Kamar Grimes MD Status:ADM NATE Y Location: [place] [address] Consult Antibiotic Management Pharmacy has been consulted [...] Signature (if applicable): Date CC: ~ Signed [facility] Work Phone: 1(224) 876-796103-14-2025 Consult note Author Omar Walters [facility] Note Date/Time September 13, 2024 7:1 0pm [facility] Medical Records Department [address] [place] [address] Anesthesia Postop Eval II 09/13/241909 MR#: [id number] Acct: [id number] Name: OSCAR WOO Rep #:[id number] : 1950 74 From: Omar Walters MD PCP: Dr. Kamar Grimes MD Status:ADM NATE Y Race: C Location: [place] [address] Anesthesia Postop Eval I Sum Postop Eval Completion status Anesthesia document: Postop Eval 1 completed: Yes Anesthesia Postop Eval I Summary Anesthesia Postop Eval I Summary: Anesthesia Postop Eval I: Assessment Summary Airway patent Yes 09/13/24 17:12 SALES PLANNING MANAGER.TNES Spontaneous unlabored Yes 09/13/24 17:12 SALES PLANNING MANAGER.TNES respirations Mental status Calm 09/13/24 17:12 SALES PLANNING MANAGER.TNES nausea No 09/13/24 17:12 SALES PLANNING MANAGER.TNES Vomiting No 09/13/24 17:12 SALES PLANNING MANAGER.TNES Anesthesia Postop Eval I: Fluid Summary Crystalloid volume administer 2,000 09/13/24 17:12 SALES PLANNING MANAGER.TNES (ml) Colloids volume administered ( ml) Blood Product volume administered (ml) Total IV fluid infused 2,000 09/13/24 17:12 SALES PLANNING MANAGER.TNES Anesthesia Postop Eval I: Summary Notes Anesthesia Complication No 09/13/24 17:12 SALES PLANNING MANAGER.TNES Anesthesia Complication Comment: Post-operative progress note Anesthesia: Postop Eval II Evaluation Mental status: Awake Pain Level: 1 nausea: No Vomiting: No 09/13/241909 <Electronically signed by Omar Walters MD > Date _ Omar Walters MD Cosigner Signature: Date CC: ~ Signed [facility] Work Phone: 1(512) 539-953203-14-2025 Consult note [facility] Medical Records Department [address] [place] [address] Pharmacokinetic/Renal -Consult 09/13/241932 MR#: [id number] Acct: [id number] Name: OSCAR WOO Rep #:[id number] : 1950 74 From: Mercedes Patel PCP: Dr. Kamar Grimes MD Status:ADM NATE Y Location: [place] [address] Consult Antibiotic Management Pharmacy has been consulted [...] Signature (if applicable): Date CC: ~ Signed [facility]03-14-2025 Consult note Author Doug Urias [facility] Note Date/Time September 13, 2024 5:1 2pm [facility] Medical Records Department [address] [place] [address] Anesthesia Postop Eval I 09/13/24 1711 MR#: [id number] Acct: [id number] Name: OSCAR WOO Rep #:[id number] : 1950 74 From: Doug DEVINE PCP: Dr. Kamar Grimes MD Status:ADM NATE Y Race: C Location: [place] [address] Anesthesia: Postop Eval I Current Vital Signs [...] CRNA Cosigner Signature: Date CC: ~ Signed [facility] Work Phone: [phone]) 550-564903-14-2025 Consult note [facility] Medical Records Department [address] [facility] [place] [address] Anesthesia Postop Eval II 09/13/24 1910 MR#: [id number] Acct: [id number] Name: OSCAR WOO Rep #:[id number] : 1950 74 From: Omar Walters MD PCP: Dr. Kamar Grimes MD Status:ADM NATE Y Race: C Location: [place] [address] Anesthesia Postop Eval I Sum Postop Eval Completion status Anesthesia document: Postop Eval 1 completed: Yes Anesthesia Postop Eval I Summary Anesthesia Postop Eval I Summary: Anesthesia Postop Eval I: Assessment Summary Airway patent Yes 09/13/24 17:12 SALES PLANNING MANAGER.TNES Spontaneous unlabored Yes 09/13/24 17:12 SALES PLANNING MANAGER.TNES respirations Mental status Calm 09/13/24 17:12 SALES PLANNING MANAGER.TNES nausea No 09/13/24 17:12 SALES PLANNING MANAGER.TNES Vomiting No 09/13/24 17:12 SALES PLANNING MANAGER.TNES Anesthesia Postop Eval I: Fluid Summary Crystalloid volume administer 2,000 09/13/24 17:12 SALES PLANNING MANAGER.TNES (ml) Colloids volume administered ( ml) Blood Product volume administered (ml) Total IV fluid infused 2,000 09/13/24 17:12 SALES PLANNING MANAGER.TNES Anesthesia Postop Eval I: Summary Notes Anesthesia Complication No 09/13/24 17:12 SALES PLANNING MANAGER.TNES Anesthesia Complication Comment: Post-operative progress note Anesthesia: Postop Eval II Evaluation Mental status: Awake Pain Level: 1 nausea: No Vomiting: No 09/13/24 1910 > Date _ Omar Luqueigner Signature: Date CC: ~ Signed [facility]03-14-2025 Radiology Diagnostic study note [facility] Imaging Services [address] [facility] [place] [address] Shoulder min 2 Views MR#: [id number] Acct: [id number] Name: OSCAR WOO Rep #: [id number] : 1950 F 74 From: Yen Donaldson MD PCP: Dr. Kamar Grimes MD Status: ADM NATE Study:Shoulder min 2 Views Date of Exam: 09/13/24 Exam# [id number] Ordering Dr: Celine Cavanaugh MD PROCEDURE: SHOULDER [...] Grimes MD; Dr. Fahad Cavanaugh MD ~ Environmental Quality Analyst: Signed [facility]03-14-2025 Consult note [facility] Medical Records Department [address] [facility] [place] [address] Anesthesia Postop Eval I 09/13/24 1711 MR#: [id number] Acct: [id number] Name: OSCAR WOO Rep #:[id number] : 1950 74 From: Doug DEVINE PCP: Dr. Kamar Grimes MD Status:ADM NATE Y Race: C Location: [place] [address] Anesthesia: Postop Eval I Current Vital Signs [...] Postop Eval 1 completed: Yes 09/13/24 1712 SALES PLANNING MANAGER> Date _ Doug Mccarr SALES PLANNING MANAGER Cosigner Signature: Date CC: ~ Signed [facility]03-14-2025 Consult note Author Omar gracy [facility] Note Date/Time September 13, 2024 12: 05pm [facility] Medical Records Department [address] [place] [address] Pre-Anesthesia Evaluation 09/13/24 1204 MR#: [id number] Acct: [id number] Name: OSCAR WOO Rep #:[id number] : 1950 74 From: Omar Walters MD PCP: Dr. Kamar Grimes MD Status:ADM IN Y Race: C Location: [place] [address] ASA Classification* ASA Classification ASA Classification: 2 [...] LEFT SHOULDER Anesthesia History Anesthesia History - visitor services representative: Anesthesia History - visitor services representative Hx Hospitalization No 09/11/24 15:02 Any Problems [...] take am of surgery PONV PONV - visitor services representative: PONV - visitor services representative Female Yes 09/11/24 15:02 HX of Motion [...] 05/05/22 15:52 Respiratory Assessment Respiratory Assessment - visitor services representative: Respiratory Tract Infection Hx - visitor services representative Hx Respiratory Tract Infection No 09/11/24 15:02 STOP Sleep Apnea STOP Sleep Apnea - visitor services representative: STOP Sleep Apnea - visitor services representative Hx Hypertension Yes: CONTROLLED WITH MED 09/11/24 [...] Tobacco Use History Tobacco Use History - visitor services representative: Tobacco Use History - visitor services representative Tobacco Use Smoking Status Former smoker 09/11/24 15:02 Hx Tobacco Use No 09/11/24 15:02 Years Smoking Packs Smoked per Day Smoking Cessation Date was No - quit smoking greater 09/11/24 15:02 within the last 15 years than 15 years ago Hx Smoking Cessation Date Hx Smoking Cessation No 09/11/24 15:02 Counseling Hematologic Medial History Hematologic Hx - visitor services representative: Hematologic Medical Hx - dental assistant Hx of Blood Transfusion Yes 09/11/24 15:02 [...] confused, unrespo /Reproduction History /Reproductive History - visitor services representative: /Reproductive Hx- visitor services representative Hx Now No 09/11/24 15:02 Gestational Age [...] MD > Date _ Omar Walters [facility] Signature: Date CC: ~ Signed [facility] Work Phone: [phone]) 877-342403-14-2025 Consult note [facility] Medical Records Department [address] [place] [address] Pre-Anesthesia Evaluation 09/13/24 1204 MR#: [id number] Acct: [id number] Name: OSCAR WOO Rep #:[id number] : 1950 74 From: Omar Walters MD PCP: Dr. Kamar Grimes MD Status:ADM IN Y Race: C Location: [place] [address] ASA Classification* ASA Classification ASA Classification: 2 [...] LEFT SHOULDER Anesthesia History Anesthesia History - visitor services representative: Anesthesia History - visitor services representative Hx Hospitalization No 09/11/24 15:02 Any Problems [...] take am of surgery PONV PONV - visitor services representative: PONV - visitor services representative Female Yes 09/11/24 15:02 HX of Motion [...] 05/05/22 15:52 Respiratory Assessment Respiratory Assessment - visitor services representative: Respiratory Tract Infection Hx - visitor services representative Hx Respiratory Tract Infection No 09/11/24 15:02 STOP Sleep Apnea STOP Sleep Apnea - visitor services representative: STOP Sleep Apnea - visitor services representative Hx Hypertension Yes: CONTROLLED WITH MED 09/11/24 [...] Tobacco Use History Tobacco Use History - visitor services representative: Tobacco Use History - visitor services representative Tobacco Use Smoking Status Former smoker 09/11/24 15:02 Hx Tobacco Use No 09/11/24 15:02 Years Smoking Packs Smoked per Day Smoking Cessation Date was No - quit smoking greater 09/11/24 15:02 within the last 15 years than 15 years ago Hx Smoking Cessation Date Hx Smoking Cessation No 09/11/24 15:02 Counseling Hematologic Medial History Hematologic Hx - visitor services representative: Hematologic Medical Hx - dental assistant Hx of Blood Transfusion Yes 09/11/24 15:02 [...] confused, unrespo /Reproduction History /Reproductive History - visitor services representative: /Reproductive Hx- visitor services representative Hx Now No 09/11/24 15:02 Gestational Age [...] MD Cosigner Signature: Date CC: ~ Signed [facility] Author Madi Caballero [facility] Note Date/Time March 26, 2025 3:22pm [facility] Medical Records Department [address] [place] [address] Counseling Note - Pharmacy 03/26/25 1342 MR#: [id number] Acct: [id number] Name: OSCAR WOO Rep #:[id number] : 1950 75 From: Madi medel PCP: Dr. Kamar Grimes MD Status:ADM IN Y Location: [place] [address] Pharmacy [facility] has performed discharge medication counseling [...] Signature (if applicable): Date CC: ~ Signed [facility] Work Phone: Consult note Author Reginaldo [facility] Note Date/Time April 19, 2025 6 :01pm [facility] Medical Records Department [address] [place] [address] Consultation - Repair Armature Winder Helper 04/19/25 1750 MR#: [id number] Acct: [id number] Name: OSCAR WOO Rep #:[id number] : 1950 75 From: Reginaldo Fatima MD PCP: Dr. Kamar Grimes MD Status:ADM IN [facility] Consult Data Date of [...] SOB but her brain still seems "foggy". [facility] Medical History Saccular aneurysm Infection of prosthetic [...] mls @ 15 mls/hr 04/19/25 02:16 IV .[id number] PRN Saline Flush Sodium Chloride 250 mls @ 15 mls/hr 04/19/25 02:16 IV .[id number] PRN Additional IVPB Infusion Melatonin 10 mg [...] 72.5 H, Lymph % (Auto) 15.6 L, [place] % (Auto) 7.9, Eos % (Auto) 2.7, [...] No focal consolidation. Mild cardiomegaly. Reading Location: [facility] Assessment and Plan . Assessment and plan: [...] applicable): CC: Dr. Kamar Grimes MD~ Signed [facility] Work Phone: Consult note Author Keya Basilio [facility] Note Date/Time April 21, 2025 8 :53pm [facility] Medical Records Department [address] [place] [address] Consultation - Nephrology 04/21/252049 MR#: [id number] Acct: [id number] Name: OSCAR WOO Rep #:[id number] : 1950 75 From: Keya kendrick MD PCP: Dr. Kamar Grimes MD Status:ADM IN [facility] Assessment & Plan Assessment/Plan (1) [...] no edema right now. no urinary complaints. [facility] Medical History Saccular aneurysm Infection of prosthetic [...] 74.4 H, Lymph % (Auto) 13.3 L, [place] % (Auto) 8.1, Eos % (Auto) 2.6, [...] applicable): CC: Dr. Kamar Grimes MD~ Signed [facility] Work Phone: Discharge summary Author Garfield Pierson [facility] Note Date/Time April 23, 2025 5 :03pm [facility] Medical Records Department [address] [place] [address] Transfer to [facility] MR#: [id number] Acct: [id number] Name: OSCAR WOO Rep #:[id number] : 1950 75 From: Garfield Chi PCP: Dr. Kamar Grimes MD Status:ADM IN Certification of patient admission REQUIRED AT TIME OF ADMISSION. I CERTIFY THAT POST-HOSPITAL ECF SERVICES ARE REQUIRED TO BE GIVEN ON AN IN-PATIENT BASIS BECAUSE OF THE ABOVE NAMED PATIENT'S NEED FOR PRISON CARE ON A CONTINUING BASIS FOR THE [...] is a 75-year-old female who presented to [facility] ED on 04/18/2025 with worsening hyponatremia and [...] Repeat sodium was 123. Improved 3 mEq. Scrap Crane Operator is consulted. Calculated serum iron 267. [...] normal range.UA negative, hCG 1.015, protein 30. Scrap Crane Operator on board 04/21: Serum sodium improved 127 today. K4.2. Bicarb of 37.5. Anion gap 5. Osmolar gap was normal as mentioned above. 04/22 was seen by international controller. Sodium and chloride at baseline. Sodium 130 [...] % (Auto) 66.8, Lymph % (Auto) 18.2 L,Stanislaus % (Auto) 8.7, Eos % (Auto) 3.7, [...] in before D/C Order can be placed): [facility] 04/23/25 1703 <Electronically signed by Garfield [...] Quinn MD; Dr. Rosalind Key MD ~ [facility] Work Phone: Discharge summary Author [facility] Note Date/Time April 23, 2025 5 :11pm [facility] Medical Records Department [address] [place] [address] Discharge Summary 04/23/25 1708 MR#: [id number] Acct: [id number] Name: OSCAR WOO Rep #:[id number] : 1950 75 From: Garfield Chi PCP: Dr. Kamar Grimes MD Status:ADM IN Location: [place] [id number]- Providers Date of Admission: 04/18/25 Date of Discharge: 04/23/25 Primary Care Physician: Dr. Kamar Grimes MD Consultations 04/18/25 22:05 Consult: Nephrology Routine Consulting Provider: Keya Basilio Reason for Consult: worsening hyponatremia, severe hypochloremia, ELVIA EMERGENT Consult: No MD Notified: Yes Date Notified: 04/19/25 Time Notified: 06:47 Method of Notification: Answering Service 04/19/25 14:46 Consult: Repair Armature Winder Helper / Pulmonary Medicine Routine Consulting Provider: Intensivists/Pulmonary Med Reason for Consult: hypotension, dizzy EMERGENT Consult: No Notified: Yes Date Notified: 04/19/25 Time Notified: 14:44 Method of Notification: Answering Service Reason For Visit: HYPONATREMIA, FALLS Diagnosis Discharge Diagnosis (1) Hyponatremia: Status: Acute Code(s): E87.1 - Hypo-osmolality and hyponatremia Plan Patient is a 75-year-old female who presented to [facility] ED on 04/18/2025 with worsening hyponatremia and [...] Repeat sodium was 123. Improved 3 mEq. Scrap Crane Operator is consulted. Calculated serum iron 267. [...] normal range.UA negative, hCG 1.015, protein 30. Scrap Crane Operator on board 04/21: Serum sodium improved 127 today. K4.2. Bicarb of 37.5. Anion gap 5. Osmolar gap was normal as mentioned above. 04/22 was seen by international controller. Sodium and chloride at baseline. Sodium 130 [...] % (Auto) 66.8, Lymph % (Auto) 18.2 L,Stanislaus % (Auto) 8.7, Eos % (Auto) 3.7, [...] in before D/C Order can be placed): [facility] Charges/Coding Visit Charges Inpatient E&M: 65589 Disch Hosp >30min 04/23/251710 <Electronically signed by Garfield Pierson MD> Cosigner Signature (if applicable): CC: Dr. Kamar Grimes MD; Dr. Garfield Pierson MD~ Signed [facility] Work Phone: Discharge summary Author Garfield Pierson [facility] Note Date/Time April 23, 2025 6 :03pm [facility] Medical Records Department [address] [place] [address] Transfer to [facility] MR#: [id number] Acct: [id number] Name: OSCAR WOO Rep #:[id number] : 1950 75 From: Garfield Chi PCP: Dr. Kamar Grimes MD Status:ADM IN Certification of patient admission REQUIRED AT TIME OF ADMISSION. I CERTIFY THAT POST-HOSPITAL ECF SERVICES ARE REQUIRED TO BE GIVEN ON AN IN-PATIENT BASIS BECAUSE OF THE ABOVE NAMED PATIENT'S NEED FOR PRISON CARE ON A CONTINUING BASIS FOR THE [...] is a 75-year-old female who presented to [facility] ED on 04/18/2025 with worsening hyponatremia and [...] Repeat sodium was 123. Improved 3 mEq. Scrap Crane Operator is consulted. Calculated serum iron 267. [...] normal range.UA negative, hCG 1.015, protein 30. Scrap Crane Operator on board 04/21: Serum sodium improved 127 today. K4.2. Bicarb of 37.5. Anion gap 5. Osmolar gap was normal as mentioned above. 04/22 was seen by international controller. Sodium and chloride at baseline. Sodium 130 [...] % (Auto) 66.8, Lymph % (Auto) 18.2 L,Stanislaus % (Auto) 8.7, Eos % (Auto) 3.7, [...] in before D/C Order can be placed): [facility] 04/23/25 7950 <Electronically signed by Garfield Pierson MD> Cosigner [...] Quinn MD; Dr. Rosalind Key MD ~ [facility] Work Phone: Evaluation noteNo assessment information available [facility] Work Phone: Evaluation note* Diagnosis Onset Date Resolution Status Admit Date [facility] Acute hypotension acute [facility] 2024 7:38pm Acute kidney injury acute Septe [facility] 2024 7:38pm Acute respiratory failure with hypoxia [facility]capnia [facility] Bacteria in urine acute [facility] 2024 7:38pm Debility acute March 7:38pm Hypothermia acute March 7:38pm Shock acute March 7:38pm Acute on chronic respiratory failure with hypoxia and hypercapnia chronic March 18, 2025 7:38pm [facility] Work Phone: History and physical note Author Emili Lee [facility] Note Date/Time March 18, 2025 8:45pm [facility] Medical Records Department [address] [place] [address] H&P Exam - Hospitalist 03/18/251937 MR#: [id number] Acct: [id number] Name: OSCAR WOO Rep #:[id number] : 1950 75 From: Emili Lee MD PCP: Dr. Kamar Grimes MD Status:ADM IN Location: ICU ICU02-1 HPI - General General Date of Admission: 03/18/25 Date of Service: 03/18/25 Chief Complaint: Altered mental status HPI Narrative OSCAR WOO, is a 75-year-old female with a history of restless leg syndrome, hypertension, depression, hypertension presented [facility] ED 03/18/2025 due to altered [...] 84.3 H, Lymph % (Auto) 7.4 L, [place] % (Auto) 7.0, Eos % (Auto) 0.0, [...] Clarity Clear, Urine pH 6.0, Ur Specific [place] 1.015, Urine Protein 30 H, Urine Glucose [...] IMPRESSION: No acute intracranial process. Reading Location: [id number] Chest X-Ray 03/18/25 15:35 IMPRESSION: Bilateral low lung volumes. No acute cardiopulmonary abnormality. Reading Location: [id number] Chest X-Ray 03/18/25 17:44 IMPRESSION: 1. Endotracheal tube tip 3.1 cm above the abigail. 2. Enteric tube appropriately positioned terminating in the upper midabdomen. 3. Cardiomegaly, with increased vascular markings and possible interstitial edema. Reading Location: [facility] KUB X-Ray 03/18/25 18:00 IMPRESSION: Enteric tube terminates appropriately within the stomach. Persistent IV contrast opacifying the kidneys suggesting medical renal disease with delayed excretion. Reading Location: [facility] Assessment & Plan Assessment/Plan (1) Shock: [...] started -Patient be admitted to the ICU, condenser tube tender consulted - Patient received 1 L of IV fluids, not given further IV fluids due to recent diagnosis of heart failure and chest x-ray coronary congestion # Acute hypoxic hypercapnic respiratory failure -Patient came in altered, developed progressive hypoxia and was found to be hypercapnic, ultimately required intubation and sedation -Admit to ICU -Workup as above -Scheduled nebs -Will check proBNP - Repair Armature Winder Helper consult #Acute renal failure - Creatinine was [...] Vasopressors started Charges/Coding Visit Charges Inpatient E&M: 44004 Init Hosp L3 03/18/252044 <Electronically signed by Emili Lee MD> Cosigner Signature (if applicable): CC: Dr. Kamar Grimes MD; Dr. Emili Lee MD~ Signed [facility] Work Phone: History and physical note Author [facility] Note Date/Time April 18, 2025 1 0:05pm [facility] Medical Records Department [address] [place] [address] H&P Exam - Hospitalist 04/18/25 1717 MR#: [id number] Acct: [id number] Name: OSCAR WOO Rep #:[id number] : 1950 75 From: Jermaine Beatty jennifer PIERSON PCP: Dr. Kamar Grimes MD Status:ADM IN Location: [facility] DVP414- 1 HPI - General General Date of Admission: 04/18/25 Date of Service: 04/18/25 Chief Complaint: Worsening hyponatremia and falls HPI Narrative OSCAR WOO, is a 75 F who presented to [facility] on 04/18/2025 with worsening hyponatremia and falls [...] currently. Will be admitted for further management. [facility] Medical History Saccular aneurysm Infection of prosthetic [...] 77.8 H, Lymph % (Auto) 10.9 L, Stan[place] % (Auto) 8.9, Eos % (Auto) 1.6, [...] is a 75-year-old female who presented to [facility] ED on 04/18/2025 with worsening hyponatremia and [...] 86 minutes. Charges/Coding Visit Charges Inpatient E&M: 28698 Init Hosp L3 04/18/254 <Electronically signed by Jermaine Simms DO> Cosigner Signature (if applicable): CC: Dr. Jermaine Simms DO; Dr. Kamar Grimes MD~ Signed [facility] Work Phone: Hospital Discharge instructionsAdditional Instructions 1. [...] Reddy as previously instructed Date of Discharge: 03/26/25[facility] Work Phone: Hospital Discharge instructionsAdditional Instructions Date of Discharge: 04/23/25[facility] Work Phone: Progress note Author Garfield Pierson [facility] Note Date/Time April 19, 2025 4 :45pm [facility] Medical Records Department [address] [place] [address] Progress Note - Hospitalist 04/19/251136 MR#: [id number] Acct: [id number] Name: OSCAR WOO Rep #:[id number] : 1950 75 From: Garfield Chi PCP: [...] 77.8 H, Lymph % (Auto) 10.9 L, Stan[place] % (Auto) 8.9, Eos % (Auto) 1.6, [...] is a 75-year-old female who presented to [facility] ED on 04/18/2025 with worsening hyponatremia and [...] Repeat sodium was 123. Improved 3 mEq. Scrap Crane Operator is consulted. Calculated serum iron 267. [...] 35 minutes. Charges/Coding Visit Charges Inpatient E&M: 11777 Subs Hosp L3 04/19/255 <Electronically signed by Garfield Pierson MD> Cosigner Signature (if applicable): CC: ~ Signed [facility] Work Phone: Prohymfd note Author Keya Basilio [facility] Note Date/Time April 19, 2025 4 :34pm [facility] Medical Records Department [address] [place] [address] Progress Note 04/19/25 163 MR#: [id number] Acct: [id number] Name: OSCAR WOO Rep #:[id number] : 1950 75 From: Keya kendrick MD PCP: Dr. Kamar Grimes MD Status:ADM IN Location: ICU CVICU20 07-03 Progress Note attempted to see earlier. was not in room. chart reviewed. normal baseline sodium. hyponatremia, hypochloremia, likely volume depletion. 04/19/25 1634 <Electronically signed by Keya Basilio MD> Keya Basilio MD Cosigner Signature (if applicable): CC: ~ Signed [facility] Work Phone: Prohvbsg note Author Garfield [facility] Note Date/Time April 20, 2025 8 :21am [facility] Medical Records Department [address] [place] [address] Progress Note - Hospitalist 04/20/25 0726 MR#: [id number] Acct: [id number] Name: OSCAR WOO Rep #:[id number] : 1950 75 From: Garfield Chi PCP: [...] (Auto) 72.5 H, Lymph % (Auto) 15.6 L,Stanislaus % (Auto) 7.9, Eos % (Auto) 2.7, [...] (Auto) 73.3 H, Lymph % (Auto) 14.8 L,Stanislaus % (Auto) 7.7, Eos % (Auto) 2.9, [...] No focal consolidation. Mild cardiomegaly. Reading Location: [facility] Physical Exam Narrative Seen and examined Patient [...] is a 75-year-old female who presented to [facility] ED on 04/18/2025 with worsening hyponatremia and [...] Repeat sodium was 123. Improved 3 mEq. Scrap Crane Operator is consulted. Calculated serum iron 267. [...] normal range.UA negative, hCG 1.015, protein 30. Scrap Crane Operator on board 2. ELVIA with mild [...] 35 minutes. Charges/Coding Visit Charges Inpatient E&M: 44062 Subs Hosp L3 04/20/25 0821 <Electronically signed by Garfield Pierson MD> Cosigner Signature (if applicable): CC: ~ Signed [facility] Work Phone: Progress note Author Reginaldo Fatima [facility] Note Date/Time April 20, 2025 2 :29pm [facility] Medical Records Department [address] [place] [id number] Progress Note - Repair Armature Winder Helper 04/20/25 1428 MR#: [id number] Acct: [id number] Name: OSCAR WOO Rep #:[id number] : 1950 75 From: Reginaldo Fatima MD [...] mls @ 15 mls/hr 04/19/25 02:16 IV .[id number] PRN Saline Flush Sodium Chloride 250 mls @ 15 mls/hr 04/19/25 02:16 IV .[id number] PRN Additional IVPB Infusion Melatonin 10 mg [...] (Auto) 72.5 H, Lymph % (Auto) 15.6 L,Stanislaus % (Auto) 7.9, Eos % (Auto) 2.7, [...] (Auto) 73.3 H, Lymph % (Auto) 14.8 L,Stan[place]aus % (Auto) 7.7, Eos % (Auto) 2.9, [...] Sl. Cloudy, Urine pH 6.0, Ur Specific [place] 1.010, Urine Protein 30 H, Urine Glucose [...] No focal consolidation. Mild cardiomegaly. Reading Location: [facility] Assessment and Plan . Assessment and plan: [...] downgraded 04/20/25 1429 <Electronically signed by Reginaldo Ftaima MD> Cosigner Signature (if applicable): CC: ~ Signed [facility] Work Phone: Progress note Author Garfield Pierson [facility] Note Date/Time April 21, 2025 8 :39am [facility] Medical Records Department [address] [place] [address] [place] [address] Progress Note - Hospitalist 04/21/25 0833 MR#: [id number] Acct: [id number] Name: OSCAR WOO Rep #:[id number] : 1950 75 From: Garfield Chi PCP: Dr. Kamar Grimes MD Status:ADM IN Location: ICU [place] [address] 1-1 Reason for Visit Chief Complaint: Worsening [...] Sl. Cloudy, Urine pH 6.0, Ur Specific [place] 1.010, Urine Protein 30 H, Urine Glucose [...] 74.4 H, Lymph % (Auto) 13.3 L, [place] % (Auto) 8.1, Eos % (Auto) 2.6, [...] is a 75-year-old female who presented to [facility] ED on 04/18/2025 with worsening hyponatremia and [...] Repeat sodium was 123. Improved 3 mEq. Scrap Crane Operator is consulted. Calculated serum iron 267. [...] normal range.UA negative, hCG 1.015, protein 30. Scrap Crane Operator on board 04/21: Serum sodium improved [...] Sl. Cloudy, Urine pH 6.0, Ur Specific [place] 1.010, Urine Protein 30 H, Urine Glucose [...] 74.4 H, Lymph % (Auto) 13.3 L, [place] % (Auto) 8.1, Eos % (Auto) 2.6, [...] Calcium 9.0 Charges/Coding Visit Charges Inpatient E&M: 09152 Subs Hosp L2 04/21/25 0839 <Electronically signed by Garfield Pierson MD> Cosigner Signature (if applicable): CC: ~ Signed [facility] Work Phone: Progress note Author Keya Basilio [facility] Note Date/Time April 23, 2025 6 :52pm [facility] Medical Records Department [address] [place] [address] Progress Note - Nephrology 04/22/25 1725 MR#: [id number] Acct: [id number] Name: OSCAR WOO Rep #:[id number] : 1950 75 From: Keya kendrick MD PCP: Dr. Kamar Grimes MD Status:ADM IN Location: [place] [address] Subjective Subjective no new events Objective Data [...] % (Auto) 66.8, Lymph % (Auto) 18.2 L,Stanislaus % (Auto) 8.7, Eos % (Auto) 3.7, [...] Cosigner Signature (if applicable): CC: ~ Signed [facility] Work Phone: Progress note Author Garfield Pierson [facility] Note Date/Time April 22, 2025 5 :33pm [facility] Medical Records Department [address] [place] [address] Progress Note - Hospitalist 04/22/251728 MR#: [id number] Acct: [id number] Name: OSCAR WOO Rep #:[id number] : 1950 75 From: Garfield Chi PCP: Dr. Kamar Grimes MD Status:ADM IN Location: [place] [address] Reason for Visit Chief Complaint: Worsening hyponatremia [...] % (Auto) 66.8, Lymph % (Auto) 18.2 L,Stanislaus % (Auto) 8.7, Eos % (Auto) 3.7, [...] is a 75-year-old female who presented to [facility] ED on 04/18/2025 with worsening hyponatremia and [...] Repeat sodium was 123. Improved 3 mEq. Scrap Crane Operator is consulted. Calculated serum iron 267. [...] normal range.UA negative, hCG 1.015, protein 30. Scrap Crane Operator on board 04/21: Serum sodium improved 127 today. K4.2. Bicarb of 37.5. Anion gap 5. Osmolar gap was normal as mentioned above. 04/22 was seen by international controller. Sodium and chloride at baseline. 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 Advance Directive(s) 01/27/2016 7:37 AM Advance Directive Response Recorded Date/ Time Advance Directives Yes October 03 3:41pm Living Will Yes June 24, 020 2:31pm Power of Dry Cleaning Counter Clerk Yes June 24, 2020 2:31pm Advance Directive Response Recorded Date/ Time Advance Directives Yes October 03 2:41pm Living Will Yes June 24 020 1:31pm Power of Dry Cleaning Counter Clerk Yes June 24, 2020 1:31pm Advance Directive Response Recorded Date/ Time Living Will Yes September 13, 2024 6:26pm Power of Dry Cleaning Counter Clerk Yes September 13 6:26pm Name of Medical Power of Dry Cleaning Counter Clerk GRANDDAUGHTER/ SISTER September 13, 2024 6:26pm Advance Directives Yes October 03 3:41pm Advance Directive Response Recorded Date/ Time Living Will Yes September 18, 2024 4:28pm Do you have a Healthcare Power of Dry Cleaning Counter Clerk? Yes September 18, 2024 4:28pm Name of Medical Power of Dry Cleaning Counter Clerk Sister (Mary Jane Daniels) and Granddaughter (Pattie Woo) September 18, 2024 4:28pm Living Will Yes September 13, 2024 6:26pm Do you have a Healthcare Power of Dry Cleaning Counter Clerk? Yes September 13, 2024 6:26pm Name of Medical Power of Dry Cleaning Counter Clerk GRANDDAUGHTER/SISTER September 13, 2024 6:26pm Advance Directives Yes October 03 3:41pm Advance Directive Response Recorded Date/ Time Advance Directives Yes October 03 3:41pm Advance Directive Response Recorded Date/ Time Do you have a Healthcare Power of Dry Cleaning Counter Clerk? No March 18, 2025 3:48pm Advance Directives Yes October 03 3:41pm Advance Directive Response Recorded Date/ Time Do you have a Healthcare Power of Dry Cleaning Counter Clerk? No March 18, 2025 3:48pm Do you have a Healthcare Power of Dry Cleaning Counter Clerk? Yes April 18, 2025 7:55pm Advance Directives Yes October 03 3:41pm Advance Directive Response Recorded Date/ Time Do you have a Healthcare Power of Dry Cleaning Counter Clerk? No March 18, 2025 2:48pm Do you have a Healthcare Power of Dry Cleaning Counter Clerk? Yes April 18, 2025 6:55pm Advance Directives [...] or prosecute any alcohol or drug abuse patient.[facility] Goals (unrecognized section and content) Type [...] Active Sta rt: September 16, 2024 Dr. Faahd Cavanaugh MD Referring Provider Active Start: September [...] Active Start: March 18, 2025 Dr. Deion Leyv MD Emergency Department Physician Active Start: March [...] Start: March 18, 2025 Jodi Al NP, OPHTHALMIC TECHNICIAN-C Nurse Practitioner Active Start: March 18, 2025 Sahara Chen OPHTHALMIC TECHNICIAN-C Nurse Practitioner Active Start: March 18, 2025 [...] End: March 26, 2025 Jodi Al NP, OPHTHALMIC TECHNICIAN-C Nurse Practitioner Active Start: March 18, 2025 End: March 26, 2025 Sahara Chen OPHTHALMIC TECHNICIAN-C Nurse Practitioner Active Start: March 18, 2025 [...] Active Start: March 19, 2025 Jodi Al OPHTHALMIC TECHNICIAN, OPHTHALMIC TECHNICIAN-C Nurse Practitioner Active Start: March 19, 2025 [...] Start: March 19, 2025 Jodi Al NP, OPHTHALMIC TECHNICIAN-C Nurse Practitioner Active Start: March 19, 2025 Sahara Chen OPHTHALMIC TECHNICIAN-C Nurse Practitioner Active Start: March 19, 2025 [...] Active Start: March 20, 2025 Jodi Al OPHTHALMIC TECHNICIAN, OPHTHALMIC TECHNICIAN-C Nurse Practitioner Active Start: March 20, 2025 [...] Active Start: March 20, 2025 Jodi Al OPHTHALMIC TECHNICIAN, OPHTHALMIC TECHNICIAN-C Nurse Practitioner Active Start: March 20, 2025 Sahara Chen OPHTHALMIC TECHNICIAN-C Nurse Practitioner Active Start: March 20, 2025 [...] Active S tart: March 20, 2025 Dr. Abdirahsid Smith MD Nurse Practitioner Active Start: March [...] Active Start: March 20, 2025 Dr. Cuate aRo MD Nurse Practitioner Active Start: March 20, 2025 Dr. Celestino Gallagher MD Nurse Practitioner Active Start: March 20, 2025 Dr. Tacos Hollins MD Nurse Practitioner Active Start: March Dr. John Quinn MD Nurse Practitioner Active Start: March 20, 2025 Jodi lA NP, OPHTHALMIC TECHNICIAN-C Nurse Practitioner Active Start: March 20, 2025 Sahara Chen OPHTHALMIC TECHNICIAN-C Nurse Practitioner Active Start: March 20, 2025 [...] Start: March 21, 2025 Jodi Al NP, OPHTHALMIC TECHNICIAN-C Nurse Practitioner Active Start: March 21, 2025 [...] Start: March 21, 2025 Jodi Al NP, OPHTHALMIC TECHNICIAN-C Nurse Practitioner Active Start: March 21, 2025 [...] Active Start: March 22, 2025 Jodi Al OPHTHALMIC TECHNICIAN, OPHTHALMIC TECHNICIAN-C Nurse Practitioner Active Start: March 22, 2025 [...] Start: March 23, 2025 Jodi Al NP, OPHTHALMIC TECHNICIAN-C Nurse Practitioner Active Start: March 23, 2025 [...] Active Start: March 24, 2025 Jodi Al OPHTHALMIC TECHNICIAN, OPHTHALMIC TECHNICIAN-C Nurse Practitioner Active Start: March 24, 2025 [...] Start: March 25, 2025 Jodi Al NP, OPHTHALMIC TECHNICIAN-C Nurse Practitioner Active Start: March 25, 2025 Sahara Chen , OPHTHALMIC TECHNICIAN-C Nurse Practitioner Active Start: March 25, 2025 [...] Active Start: March 26, 2025 Jodi Al OPHTHALMIC TECHNICIAN, OPHTHALMIC TECHNICIAN-C Nurse Practitioner Active Start: March 26, 2025 [...] Active Start: March 19, 2025 Jodi Al OPHTHALMIC TECHNICIAN, OPHTHALMIC TECHNICIAN-C Nurse Practitioner Active Start: March 19, 2025 Sahara Chen NP-C Nurse Practitioner Active Start: March 19, 2025 Dr. Otilia Hernandez MD Nurse Practitioner Active Start: March 19, 2025 Team Status: Active Member Role/Relationship Status Dates Dr. Kaamr Grimes MD Primary care physician Active Start: [...] Practitioner Active Start: March 20, 2025 Dr. lAden Arcos MD Nurse Practitioner Active Start: March [...] Active Start: March 20, 2025 Jodi Al OPHTHALMIC TECHNICIAN, OPHTHALMIC TECHNICIAN-C Nurse Practitioner Active Start: March 20, 2025 [...] Start: March 21, 2025 Jodi Al NP, OPHTHALMIC TECHNICIAN-C Nurse Practitioner Active Start: March 21, 2025 [...] 18, 2025 End: April 23, 2025 Dr. Reginalod Fatima MD Nurse Practitioner Active Start: April [...] Activ e Start: April 20, 2025 Dr. Jermiane Simms DO Nurse Practitioner Active Start: April [...] Active Member Role/Relationship Status Dates Dr. Kamar Grmies MD Primary care physician Active Start: April 29, 2025 Dr. Katrina ROBLES MD Attending physician Active Start: April 29, 2025 Team Status: Active Member Role/Relationship Status Dates Dr. Kamar Grimes MD Primary care physician Active Start: May 08, 2025 Dr. Katrina ROBLES MD Attending physician Active Start: May 08, 2025 INFORMATION SOURCE (unrecogn ized section and content) DATE CREATED AUTHOR 09/13/2024 [facility] DATE CREATED AUTHOR AUTHOR'S ORGANIZ ATION 10/04/2024 [facility] DATE CREATED AUTHOR AUTHOR'S ORGANIZ ATION 05/15/2025 [facility] FOR RECORDS PERTAINING TO PATIENTS WHO [...] BE BASED ON THE PRIMARY CLINICAL RECORDS. [employer] provides no warranty or guarantee of the accuracy or completeness of information in this document.
[2025-06-06 17:01] LABS: Anion Gap 9 (5-15); BUN 45 mg/dL (4-19); BUN/Creat Ratio 31.2 RATIO (10-20); Calcium,Total 9.5 mg/dL (7.6-11.0); Carbon Dioxide 33.9 mmol/L (21.0-32.0); Chloride 98 mmol/L (98-108); Glucose 112 mg/dL (70-99); Potassium 5.3 mmol/L (3.3-5.1)
== END ==
LOC: OLS.SW 14:30
PROVIDERS: PCP Family Medicine; Referring Provider Internal Medicine; Visit Provider Internal Medicine
DX: E87.5 Hyperkalemia (principal); I10 Essential (primary) hypertension
CPT/HCPCS: 80048

== ENCOUNTER 2025-06-23 13:51 | Inpatient (IN) | payer MEDICARE, MEDICAID, SELFPAY ==
[2025-06-23 13:53] VITALS: BP 142/79; PULSE 83; RESP 18; TEMP 36.8; O2SAT 93; O2SAT 98
--- NOTE | 2025-06-23 14:00 | EKG12_ITS ---
Test Reason : DIZZINESS Blood Pressure : */* mmHG Vent. Rate : 85 BPM Atrial Rate : 85 BPM P-R Int : 230 ms QRS Dur : 100 ms QT Int : 360 ms P-R-T Axes : 52 73 96 degrees QTcB Int : 428 ms Sinus rhythm with 1st degree A-V block Otherwise normal ECG Confirmed by Mandeep Lanza ([id number]), publications editor DORIS HOUGH ([id number]) on 06/24/2025 11:00:41 AM Also confirmed by Mandeep Lanza ([id number]), publications editor DORIS HOUGH ([id number]) on 06/25/2025 11:10:22 AM Referred By: Confirmed By: Mandeep Lanza
[2025-06-23 16:17] LABS: Hematocrit 40.2 % (37-47); Hemoglobin 12.0 g/dL (12.0-15.0); Immature Granulocytes Count 0.080 X10^3/uL (0.0-0.0); Mean Corp Hgb Conc 29.9 g/dL (32-36); Mean Corpuscular Volume 101.3 fL (81-99); Mean Platelet Vol. 11.2 fl (6.2-12.0); NRBC Flagged by Analyzer 0 % (0-5); Platelet Count 154 K/mm3 (150-450); RBC Distribution Width CV 14.8 % (11.6-14.6); RBC Distribution Width SD 56.1 fl (35.1-43.9); Red Blood Count 3.97 M/mm3 (4.2-5.4); White Blood Count 8.4 K/mm3 (4.4-11.0)
[2025-06-23 17:11] LABS: Anion Gap 6 (7-18); BUN 65 mg/dL (4-19); BUN/Creat Ratio 36.4 RATIO (10-20); Calcium,Total 9.1 mg/dL (7.6-11.0); Carbon Dioxide 40.3 mmol/L (20.0-29.0); Chloride 89 mmol/L (96-106); Glucose 107 mg/dL (70-99); Potassium 5.5 mmol/L (3.5-5.1)
[2025-06-23 19:34] VITALS: BP 152/93; PULSE 81; O2SAT 16; BMI 38.2
--- NOTE | 2025-06-23 20:37 | RAD_ITS ---
PROCEDURE: CHEST PA AND LATERAL 06/23/2025 REASON FOR EXAM: COUGH TECHNIQUE: Procedure Code: RADCXR Modality: DX Procedure: CHEST PA AND LATERAL COMPARISON: Chest x-ray 04/19/2020 FINDINGS: Hardware: Partially imaged bilateral shoulder arthroplasties. Heart: Heart size is mildly enlarged. Mediastinum: The mediastinal contour is unremarkable. Lungs: There is mild pulmonary vascular congestion. No focal consolidation. No pneumothorax or sizable pleural effusion. Bones: The bones are unremarkable. RAD/Chest PA and Lateral IMPRESSION: Mild cardiomegaly and mild pulmonary vascular congestion. Reading [facility]
--- NOTE | 2025-06-23 20:37 | RAD_ITS ---
PROCEDURE: LEFT HIP, UNI W/ PELVIS 2-3 VIEWS 06/23/2025 REASON FOR EXAM: FALL TECHNIQUE: Procedure Code: RAD Modality: DX Procedure: HIP, UNI W/ PELVIS 2-3 VIEWS COMPARISON: None. FINDINGS: No evidence of acute fracture or dislocation. Status post bilateral hip arthroplasties, with intact appearing hardware. Degenerative changes of the lower lumbosacral spine. Dystrophic calcification in the left lateral thigh and scattered atherosclerotic vascular calcifications. RAD/HIP, UNI W/ Pelvis 2-3 Views IMPRESSION: No evidence of acute fracture or dislocation. Bilateral hip arthroplasties with intact hardware. Reading Location: [id number]
[2025-06-23] MEDS: 0.9% Normal Saline (1000mL) 1,000 ML 999 ML IV (20:48)
[2025-06-23 21:00] VITALS: BP 104/65; PULSE 80; RESP 16; O2SAT 96
[2025-06-23 21:02] LABS: Allen Test Positive; Base Excess 22 mmol/L (-2 to +2); FI02 2.0; PO2 58 mmHG (75-100); SITE R Radial; SO2 88 % (94-98)
[2025-06-23 21:04] LABS: AST(SGOT) 21 U/L (<=31); Alanine Aminotransfer ALT/SGPT 12 U/L (<=34); Albumin, Serum 3.8 g/dL (3.4-4.8); Alkaline Phosphatase 116 U/L (35-104); Bilirubin, Direct 0.13 mg/dL (0.00-0.30); Globulin 2.7 g/dL (2.2-4.2)
[2025-06-23 21:20] LABS: Mucous, Urine 0 SEEN /hpf (<or=2+); Red Blood Cells-Urine 0 SEEN /hpf (0-5)
[2025-06-23 21:26] LABS: Color, Urine Straw (Yellow); Glucose, Dipstick Normal (Normal); Ketone-Dipstick Negative (Negative); Leukocyte Esterase-Dipstick Negative /ul (Negative); Nitrite-Dipstick Negative (Negative); Occult Blood-Urine Negative /ul (Negative); Protein-Dipstick 15 mg/dl (Negative); Specific Gravity, Urine 1.010 (1.002-1.030); Urine Bilirubin Dipstick Negative (Negative)
[2025-06-23 21:55] LABS: Squamous Epithelial Cells - UA 0-5 SEEN /hpf (5-10)
--- NOTE | 2025-06-23 22:44 | EX.ED.DYSGE1 ---
HPI History of Present Illness Chief Complaint: Weakness Narrative Narrative: Patient is a 75-year-old female with past medical history of hypertension, MRSA, anxiety, depression, hypercholesteremia who presented to the emergency department the chief complaint of generalized weakness, increased shakiness and feeling like she may pass out. Patient did note that she fell earlier today and states that she not hit her head she did not pass out. She is complaining of left hip pain as well. States that she is not on a blood thinner medication denies any recent travel history denies any history of blood clots. Patient did note that she is chronically on 2 L nasal cannula. [facility] Medical History Infection of prosthetic shoulder joint Essential (primary) hypertension Debility Infection and inflammatory reaction due to other internal joint prosthesis, initial encounter Insomnia MRSA (methicillin resistant staph aureus) culture positive Wears glasses Post-menopausal Depression Anxiety Walker as ambulation aid Ambulates with cane Arthritis High cholesterol Back pain Restless legs Former smoker Shortness of breath on exertion History of pain when walking History of edema Hypertension Home Medications ?Medication ?Instructions ?Recorded ?Last Taken ?Type losartan 50 mg tablet 50 mg PO BID BP 09/19/14 09/13/24 History melatonin 5 mg tablet 10 mg PO QHS INSOMNIA 09/19/14 04/17/25 History bupropion HCl 300 mg 24 hr tablet, 150 mg PO DAILY DEPRESSION 06/11/20 04/18/25 History extended release mirtazapine 15 mg tablet 15 mg PO QHS INSOMNIA 06/24/20 04/17/25 History duloxetine 30 mg capsule,delayed 30 mg PO DAILY DEPRESSION 09/11/24 04/18/25 History release (Cymbalta) loperamide 2 mg capsule 2 mg PO Q2H PRN PRN DIARRHEA #0 09/17/24 Unknown Rx caps albuterol sulfate 90 mcg/actuation 2 inh inhalation Q4H PRN shortness 03/18/25 Unknown History aerosol inhaler of breath or wheezing pramipexole 1 mg tablet 1 mg PO QHS restless leg 03/18/25 Unknown History spironolactone 50 mg tablet 50 mg PO DAILY diuretic 03/18/25 04/18/25 History lactobacillus combination no.9 4 4,000 mmu cells PO QDAY GI health 04/16/25 Unknown History billion cell capsule (Adult 50 Plus Probiotic) ondansetron HCl 4 mg tablet 4 mg PO Q8 PRN nausea and vomiting 04/16/25 Unknown History pramipexole 0.5 mg tablet 0.5 mg PO DINNER RLS 04/16/25 Unknown History OXYGEN - Supplemental ([facility] hypoxia 04/21/25 Unknown History INFORMATIONAL USE ONLY) carvedilol 3.125 mg tablet 3.125 mg PO BID #0 tabs 04/23/25 Unknown Rx doxycycline monohydrate 100 mg 100 mg PO BID 06/06/25 Unknown History capsule gabapentin 300 mg capsule 600 mg PO QHS 06/06/25 Unknown History aspirin 81 mg chewable tablet 81 mg PO DAILY blood thinner 06/23/25 Unknown History furosemide 20 mg tablet 20 mg PO DAILY 06/23/25 Unknown History Allergy/AdvReac Type Severity Reaction Status Date / Time Penicillins Allergy Anaphylaxis Verified 06/23/25 13:58 Family History Mother Heart disease Diabetes Brother Heart disease Diabetes Brother Heart disease pacemaker Sister Atrial fibrillation Surgical History History of reverse total replacement of right shoulder joint History of surgery Hx of colonoscopy Hx of right cataract extraction Hx of left cataract extraction History of partial colectomy Hx of appendectomy Hx of total hip arthroplasty Hx of total shoulder replacement Hx of lumbar discectomy Hx of total shoulder replacement Hx of total hip arthroplasty Social History household members: none Smoking Status: Former smoker how long ago did patient quit smokin years ago alcohol intake: never substance use type: does not use caffeine: No ROS ROS ED ROS Narrative Constitutional: Denies any fevers, chills, headaches Eyes: Denies double vision Cardiovascular: Denies chest pain Respiratory: Complains of shortness of breath as noted above Abdomen: Denies abdominal pain nausea vomit diarrhea : Denies urinary symptoms Neurological: Complains of generalized weakness and shakiness denies any numbness or tingling Musculoskeletal: Complains of left hip pain Skin: Complains of rash to her knees bilaterally from the fall EXAM Physical Exam Narrative Exam Narrative: General: Patient was lying in bed rest comfortably did not appear to be acute distress Head: Atraumatic, normocephalic Eyes: PERRL bilaterally, EOMI bilaterally Neck: Soft, supple, trachea midline Cardiovascular: Regular rate and rhythm Respiratory: Diminished breath sounds bilaterally Abdomen: Soft, nondistended, no tenderness to palpation Extremities: +4/5 strength in the bilateral lower extremities, all bony prominence palpated joints taken to full range of motion no pain elicited Neurological: Patient following commands that she was at [facility] he is 2024 NIH is 0 GCS 15 Skin: Warm, dry, intact no rashes or lesions noted Const Vital Signs: 06/23/25 13:53 06/23/25 19:34 06/23/25 19:34 Temperature 98.2 F Temperature Source Oral Pulse Rate 83 81 Respiratory Rate 18 Respiratory Effort Normal Respiratory Pattern Normal Blood Pressure 142/79 H 152/93 H Blood Pressure Mean 100 112 Pulse Ox 98 16 Oxygen Delivery Method Nasal Cannula Nasal Cannula Oxygen Flow Rate (L/min) 2 2 06/23/25 19:34 06/23/25 21:00 06/23/25 22:57 Temperature 98.2 F Temperature Source Pulse Rate 80 78 Respiratory Rate 16 19 H Respiratory Effort Respiratory Pattern Blood Pressure 104/65 123/85 H Blood Pressure Mean 78 97 Pulse Ox 96 94 Oxygen Delivery Method Nasal Cannula Nasal Cannula Oxygen Flow Rate (L/min) 2 2 06/23/25 22:59 Temperature Temperature Source Pulse Rate 81 Respiratory Rate 18 Respiratory Effort Respiratory Pattern Blood Pressure 123/85 H Blood Pressure Mean 97 Pulse Ox 96 Oxygen Delivery Method Nasal Cannula Oxygen Flow Rate (L/min) 2 MDM MDM MDM Narrative Medical decision making narrative: Patient is a 75-year-old female who presented to the emergency department with a chief complaint of shakiness, generalized weakness not feeling well. On the differential diagnose includes but limited to ACS, pneumonia, pneumothorax. Patient had a workup started prior to my evaluation. Patient's CBC reviewed and showed a normal white blood count of 8.4, hemoglobin stable at 12, platelet count noted to be 154. Patient's sodium was normal at 136, potassium was elevated at 5.5, creatinine was noted to be 1.79 she has underlying chronic kidney disease, AST and ALT were 21 and 12 respectively patient's, dioxide level elevated to 40.3 therefore ABG was added on. Patient urinalysis reviewed showed no evidence of infection. Patient's ABG reviewed showed a pH 7.41 with a pCO2 of 72.5. Patient's chest x-ray reviewed Mob[place] by radiology showed mild cardiomegaly and mild pulmonary vascular congestion . Patient's echo from 05/19/2025 reviewed showed ejection fraction 75%. Patient was attempted to be ambulated here in the emergency department however she immediately desaturated to 84% with her home oxygen on. At this point time will discuss case with hospitalist for admission we will also add on a CT of the chest. Discussed case with hospitalist Dr. Catalan who accept patient for admission. Patient notified is agreeable this plan all questions been answered. Lab Data Labs: Laboratory Results - last 24 hr 06/23/25 06/23/25 06/23/25 14:39 14:39 16:07 WBC Cancelled 8.4 Corrected WBC Cancelled RBC Cancelled 3.97 L Hgb Cancelled 12.0 Hct Cancelled 40.2 MCV Cancelled 101.3 H MCH Cancelled 30.2 MCHC Cancelled 29.9 L RDW Std Deviation Cancelled 56.1 H RDW Coeff of Terry Cancelled 14.8 H Plt Count Cancelled 154 MPV Cancelled 11.2 Immature Gran % (Auto) Cancelled 1.000 H Neut % (Auto) Cancelled 78.9 H Lymph % (Auto) Cancelled 12.2 L [place] % (Auto) Cancelled 6.0 Eos % (Auto) Cancelled 1.7 Baso % (Auto) Cancelled 0.2 Absolute Neuts (auto) Cancelled 6.6 Absolute Lymphs (auto) Cancelled 1.02 Total Counted Cancelled Neutrophils % (Manual) Cancelled Band Neutrophils % Cancelled Lymphocytes % (Manual) Cancelled Monocytes % (Manual) Cancelled Eosinophils % (Manual) Cancelled Basophils % (Manual) Cancelled Metamyelocytes % Cancelled Myelocytes % Cancelled Promyelocytes % Cancelled Blast Cells % Cancelled Plasma Cell % (Manual) Cancelled Other Cells % Cancelled Nucleated RBC % Cancelled 0 Nucleated RBCs/100 WBC Cancelled Differential Comment Cancelled Diff Path Review Cancelled Hypersegmented Neuts Cancelled Atypical Lymphocytes Cancelled Reactive Lymphocytes Cancelled Smudge Cells Cancelled Toxic Granulation Cancelled Toxic Vacuolation Cancelled Dohle Bodies Cancelled Essie Rods Cancelled Platelet Estimate Cancelled Plt Morphology Comment Cancelled RBC Morphology Cancelled Cancelled Polychromasia Cancelled Hypochromasia Cancelled Basophilic Stippling Cancelled Anisocytosis Cancelled Microcytosis Cancelled Macrocytosis Cancelled Spherocytes Cancelled Sickle Cells Cancelled Target Cells Cancelled Tear Drop Cells Cancelled Ovalocytes Cancelled Stomatocytes Cancelled Jalloh-Omak Bodies Cancelled [place] Cells Cancelled Bite Cells Cancelled Crenated Cell Cancelled Acanthocytes (Spur) Cancelled Rouleaux Cancelled Schistocytes Cancelled Sodium Cancelled Potassium Cancelled Chloride Cancelled Carbon Dioxide Cancelled Anion Gap Cancelled BUN Cancelled Creatinine Cancelled Estim Creat Clear Calc Cancelled Est GFR (MDRD) Non-Af Cancelled BUN/Creatinine Ratio Cancelled Glucose Cancelled Calcium Cancelled Total Bilirubin Direct Bilirubin AST ALT Alkaline Phosphatase Total Protein Albumin Globulin Urine Color Urine Clarity Urine pH Ur Specific Hoffman Urine Protein Urine Glucose (UA) Urine Ketones Urine Occult Blood Urine Nitrite Urine Bilirubin Urine Urobilinogen Ur Leukocyte Esterase Urine RBC Urine WBC Ur Squamous Epith Cells Urine Bacteria Urine Mucus 06/23/25 06/23/25 16:40 21:13 WBC Corrected WBC RBC Hgb Hct MCV MCH MCHC RDW Std Deviation RDW Coeff of Terry Plt Count MPV Immature Gran % (Auto) Neut % (Auto) Lymph % (Auto) [place] % (Auto) Eos % (Auto) Baso % (Auto) Absolute Neuts (auto) Absolute Lymphs (auto) Total Counted Neutrophils % (Manual) Band Neutrophils % Lymphocytes % (Manual) Monocytes % (Manual) Eosinophils % (Manual) Basophils % (Manual) Metamyelocytes % Myelocytes % Promyelocytes % Blast Cells % Plasma Cell % (Manual) Other Cells % Nucleated RBC % Nucleated RBCs/100 WBC Differential Comment Diff Path Review Hypersegmented Neuts Atypical Lymphocytes Reactive Lymphocytes Smudge Cells Toxic Granulation Toxic Vacuolation Dohle Bodies Essie Rods Platelet Estimate Plt Morphology Comment RBC Morphology Polychromasia Hypochromasia Basophilic Stippling Anisocytosis Microcytosis Macrocytosis Spherocytes Sickle Cells Target Cells Tear Drop Cells Ovalocytes Stomatocytes Jalloh-Omak Bodies [place] Cells Bite Cells Crenated Cell Acanthocytes (Spur) Rouleaux Schistocytes Sodium 136 Potassium 5.5 H Chloride 89 L Carbon Dioxide 40.3 H Anion Gap 6 L BUN 65 H Creatinine 1.79 H Estim Creat Clear Calc Est GFR (MDRD) Non-Af 29 L BUN/Creatinine Ratio 36.4 H Glucose 107 H Calcium 9.1 Total Bilirubin 0.26 Direct Bilirubin 0.13 AST 21 ALT 12 Alkaline Phosphatase 116 H Total Protein 6.5 Albumin 3.8 Globulin 2.7 Urine Color Straw Urine Clarity Clear Urine pH 6.5 Ur Specific Hoffman 1.010 Urine Protein 15 H Urine Glucose (UA) Normal Urine Ketones Negative Urine Occult Blood Negative Urine Nitrite Negative Urine Bilirubin Negative Urine Urobilinogen Normal Ur Leukocyte Esterase Negative Urine RBC 0 SEEN Urine WBC 0 SEEN Ur Squamous Epith Cells 0-5 SEEN Urine Bacteria RARE Urine Mucus 0 SEEN ABG Data ABG results: ABG 06/23/25 20:58 Specimen Type ART Sample Site R Radial pH 7.41 Bicarbonate Actual 46.2 H Total CO2 48 Base Excess 22 H O2 Saturation 88 L O2 % 2.0 ABG pCO2 72.5 H* ABG pO2 58 L Miguelangel Test Positive O2 Delivery Device Cannula Vent Mode Not entered Crit Call To/Read Back Yes Blood Gas Notified Whom Scherer Blood Gas Notified Time 20:59:37 Radiography Diagnostic Testing: Clinical Impression(s) from Imaging Studies Chest X-Ray 06/23/25 20:37 IMPRESSION: Mild cardiomegaly and mild pulmonary vascular congestion. Reading Location: [facility] Hip/Pelvis X-Ray 06/23/25 20:37 IMPRESSION: No evidence of acute fracture or dislocation. Bilateral hip arthroplasties with intact hardware. Reading Location: [id number] Discharge Plan Dx/Rx/DC Orders Clinical Impression: Acute on chronic hypoxic respiratory failure, Chronic hypercapnia, Generalized weakness, Hypertension Disposition Disposition: Acute Care Hospital [facility]
[2025-06-23 22:57] VITALS: BP 123/85; PULSE 78; RESP 19; TEMP 36.8; O2SAT 94
[2025-06-23 22:59] VITALS: BP 123/85; PULSE 81; RESP 18; O2SAT 96
--- NOTE | 2025-06-23 23:05 | CT_ITS ---
PROCEDURE: CTA CHEST W/WO CONTRAST 06/23/2025 REASON FOR EXAM: SOB TECHNIQUE: Procedure Code: [id number] Modality: CT Procedure: CTA CHEST W/WO CONTRAST Multiplanar Sagittal and Coronal images were obtained. CONTRAST: Isovue 370 VOLUME: 90 mL One or more dose reduction techniques were used (e.g., Automated exposure control, adjustment of the mA and/or kV according to patient size, use of iterative reconstruction technique). RADIATION DOSE SUMMARY: CTDlvol: 21.78 mGy DLP: 863.73 mGycm COMPARISON: None FINDINGS: There is a hypodense linear peripheral filling defect seen within the right main pulmonary artery branch and propagating shortly into its descending branch proximal segment. Otherwise, patent pulmonary artery and its main branches without sizable filling defects. Lingular subpleural 3 mm subpleural nodule is seen, no routine follow-up is required as per Fleischner criteria if the patient is considered to be low risk. There is no focal infiltrate or consolidation. A few streaky opacities are present in the lower lobes bilaterally, which may reflect subsegmental atelectasis and/or parenchymal scarring. There are no pleural effusions. No pneumothorax is seen. No mediastinal or hilar adenopathy is identified. The thyroid is unremarkable. The central airways are patent. The chest wall appears unremarkable. No axillary adenopathy is identified. The thoracic aorta demonstrates atheromatous calcification with mural thrombosis of the abodminal supra-renal segment. The heart is of normal size and configuration. There are coronary artery calcifications. No pericardial effusion is identified. No aggressive-appearing osseous lesions are identified. Degenerative changes are present in the spine. The included abdominal cuts show small right adrenal gland hypodense nodule, likely adenoma. CT/CTA Chest W/WO Contrast IMPRESSION: Small right pulmonary artery thromboembolism. Reading Location: [place] [id number]
--- OUTSIDE RECORDS SUMMARY | 2025-06-24 00:36 | XMS RPT_ITS | CCD ---
Author Organization [facility] Care Team Providers Care Flight Mechanic Name Role Phone Kamar Grimes Primary Care [...] Nadira COTTER, Dr. Lo Nurse Practitioner [phone] Bel COTTER, Dr. Mccauley Nurse Practitioner [phone] Dale COTTER, Dr. Hauser Nurse Practitioner [phone] Jj PIERSON, Dr. Moncada Nurse Practitioner Sarah COTTER, Dr. Abdirashid Billy Nurse Practitioner [phone] Akua COTTER, Dr. Hair Nurse Practitioner Josselyn COTTER, Dr. Ruano Nurse Practitioner [phone] Yesi COTTER, Dr. Boyer Nurse Practitioner Ender COTTER, Dr. Walter Nurse Practitioner [phone] Raffy COTTER, Dr. Morrell Nurse Practitioner [phone] Andres COTTER, Dr. Kimble Nurse Practitioner [phone] Kurt COTTER, Dr. Smith Nurse Practitioner Jeanne COTTER, Dr. Melendez Nurse Practitioner Unavail velasquez Barnes MD, Dr. Hendrix Nurse Practitioner Thuy COTTER, Dr. Robles Nurse Practitioner Bhavesh COTTER, Dr. Rae Nurse Practitioner Devyn COTTER, Dr. Lopez Nurse Practitioner Artie PIERSON, Dr. Ortiz Nurse Practitioner Radha COTTER, Dr. Fuller Nurse Practitioner Wicho COTTER, Dr. Blas Nurse Practitioner Pamella PIERSON, Dr. Mccrary Nurse Practitioner [phone] Jalen COTTER, Dr. Cuello Nurse Practitioner Donita diya Gallagher MD, Dr. Tirado Nurse Practitioner [phone] Gurvinder COTTER, Dr. Balderrama Nurse Practitioner Kai COTTER, Dr. Lopez Nurse Practitioner Servando MANAGER SCIENCE-CJodi Nurse Practitioner April MANAGER SCIENCE-CSahara Nurse Practitioner Dr. Kamar Grimes MD Primary [...] Dale COTTER, Dr. Hauser Nurse Practitioner [phone] Jj PIERSON, Dr. Moncada Nurse Practitioner Sarah COTTER, Dr. Abdirashid Billy Nurse Practitioner Akua COTTER, Dr. Hair Nurse Practitioner Josselyn COTTER, Dr. Ruano Nurse Practitioner [phone] Yesi COTTER, Dr. Boyer Nurse Practitioner Ender COTTER, Dr. Walter Nurse Practitioner [phone] Raffy COTTER, Dr. Morrell Nurse Practitioner [phone] Andres COTTER, Dr. Kimble Nurse Practitioner [phone] Kurt COTTER, Dr. Smith Nurse Practitioner [phone] Jeanne COTTER, Dr. Melendez Nurse Practitioner Unavail [facility] Cameron COTTRE, Dr. Hendrix Nurse Practitioner [phone] Thuy COTTER, Dr. Robles Nurse Practitioner Bhavesh COTTER, Dr. Rae Nurse Practitioner Devyn COTTER, Dr. Lopez Nurse Practitioner [phone] Artie PIERSON, Dr. Ortiz Nurse Practitioner Radha COTTER, Dr. Fuller Nurse Practitioner Wicho COTTER, Dr. Blas Nurse Practitioner Pamella PIERSON, Dr. Mccrary Nurse Practitioner [phone] Jalen COTTER, Dr. Cuello Nurse Practitioner Donita diya Gallagher MD, Dr. Tirado Nurse Practitioner [phone] COTTER, Dr. Balderrama Nurse Practitioner Kai COTTER, Dr. Lopez Nurse Practitioner Servando MANAGER SCIENCE-C, Jodi Nurse Practitioner April MANAGER SCIENCE-C, Sahara Mosher Nurse Practitioner David COTTER, Dr. Otilia Kirby Nurse Practitioner Robby PIERSON, Dr. Acosta Attending Physician Caio OCTTER, Dr. Hughes Attending Physician Elroy RASCON-CTayler Referring [...] Practitioner Dangelo COTTER, Dr. Merrill Attending Physician Magnolia , Dr. Singletary Nurse Practitioner Unavailab tan [...] Practitioner Dangelo COTTER, Dr. Merrill Nurse Practitioner [phone] Woo COTTER, Dr. Herndon Attending Physician Unavail [...] Hollins Consulting UnavailJohn Kline Consulting Unavailable Servando MANAGER SCIENCE, Jodi Consulting Unavailable Sahara Chen Consulting Unavailable [...] Love Consulting Unavailable Sarah Hicks Consulting Unavailable [place]jun[place], Lamia Consulting Unavailable [place], Shaila Consulting Unavailable [place]ha, Mustafizur Consulting UnavailJamie [...] Hicksber Consulting Unavailable Aljunluli, Lamia Consulting Unavailable [place], Shaila Consulting Unavailable [place], Mustafizur Consulting UnavailJamie [...] Physician Dr. Kamar Grimes MD Referring Provider [phone] Dr. Carlene Salazar MD Attending Physician [phone] Cam COTTER, Dr. Albarran Emergency Department Physician [...] Josselyn COTTER, Dr. Ruano Nurse Practitioner [phone] Yesi COTTER, Dr. Boyer Nurse Practitioner Ender COTTER, Dr. Walter Nurse Practitioner [phone] Raffy COTTER, Dr. Morrell Nurse Practitioner [phone] Andres COTTER, Dr. Kimble Nurse Practitioner [phone] Kurt COTTER, Dr. Smith Nurse Practitioner [phone] Jeanne COTTER, Dr. Melendez Nurse Practitioner [facility] able Cameron COTTER, Dr. Hendrix Nurse Practitioner [phone] Thuy COTTER, Dr. Robles Nurse Practitioner [phone], [address] Rae Nurse Practitioner Devyn COTTER, Dr. Lopez Nurse Practitioner [phone] Artie PIERSON, Dr. Ortiz Nurse Practitioner Radha COTTER, Dr. Fuller Nurse Practitioner Wicho COTTER, Dr. Blas Nurse Practitioner Pamella PIERSON, Dr. Mccrary Nurse Practitioner [phone] Jalen COTTER, Dr. Cuello Nurse Practitioner Donita diya Gallagher MD, Dr. Tirado Nurse Practitioner Gurvinder COTTER, Dr. Balderrama Nurse Practitioner Kai COTTER, Dr. Lopez Nurse Practitioner Servando MANAGER SCIENCE-C, Jodi Nurse Practitioner April MANAGER SCIENCE-C, Sahara Mosher Nurse Practitioner David COTTER, Dr. Otilia Kirby Nurse Practitioner Robby PIERSON, Dr. Acosta Attending Physician Caio COTTER, Dr. Hughes Attending Physician Elroy MANAGER SCIENCE-C, Tayler Referring Provider [phone] Jesus COTTER, Dr. Mock Referring Provider Jj [...] Tenorio MD, Dr. Laura Nurse Practitioner [phone] Dangelo COTTER, Dr. Merrill Nurse Practitioner [phone] Woo COTTER, Dr. Herndon Attending Physician Unavail velasquez Allergies Allergy Classification Reported Allergen(s) Allergy Type Date of Onset Reaction(s) Facility (19 sources) Penicillins; Translations: [Penicillins] Propensity to adverse reactions 6 Shortness of Breath [facility] Medications Current Medications Medication Drug Class(es) Dates Sig (Normalized) Sig (Original) [id number] 200 actuat albuterol 0.09 mg/actuat metered dose [...] docusate sodium 50 mg / felipe osides, snf 8.6 mg oral tablet (20 sources) Start: [...] 06-11-2020 Start: 06-11-2020 take 1 tablet by eguene at bedtime Gabapentin 600 MG tablet Active [...] Start: 09-19-2014 take 2 tablets by mo hih at bedtime Melatonin 5 MG tablet Active [...] 05-08-2025 Anion gap [Moles/Vol] 8 mmol/L 11-14 [facility] BUN/creatinine ratioOrdered By: Katrina Berkowitz on 05-08-2025 Urea nitrogen/Creatinine [Mass ratio] 21.3 mg/mg High 04-21 [facility] Basic Metabolic Profile (BMP )on 05-08-2025 BUN/CRE 21.3 RATIO High 04-21 [facility] Comment on above: Order Comment: 211.1 Performed By: #### L 500.2500, L100.0500 ####[facility] [address] [place], [address] GAP 8 Normal 5-15 [facility] Comment on above: Order Comment: 211.1 Performed By: #### L 500.2500, L100.0500 ####[facility] [address] [place], [address] Potassium [Moles/Vol] 5.1 mmol/L Normal 3.3-5.1 [facility] Comment on above: Order Comment: 211.1 Result Comment: Hemo lysis present, Results??could be affected.?? Performed By: #### L 500.2500, L100.0500 ####[facility] [address] [place], [address] Basic Metabolic Profile (BMP )Ordered By: Katrina Berkowitz on 05-08-2025 Calcium [Mass/Vol] 9.5 mg/dL Normal 7.6-11.0 [facility] Comment on above: Order Comment: 211.1 Performed By: #### L 500.2500, L100.0500 ####[facility] [address] [place], [address] Chloride [Moles/Vol] 98 mmol/L Normal 98-108 [facility] Comment on above: Order Comment: 211.1 Performed By: #### L 500.2500, L100.0500 ####[facility] [address] [place], [address] CO2 [Moles/Vol] 34.0 mmol/L High 21.0-32.0 [facility] Comment on above: Order Comment: 211.1 Performed By: #### L 500.2500, L100.0500 ####[facility] [address] [place], [address] Creatinine [Mass/Vol] 0.94 mg/dL Normal 0.70-1.20 [facility] Comment on above: Order Comment: 211.1 Performed By: #### L 500.2500, L100.0500 ####[facility] [address] [place], [address] GFR/1.73 sq M.predicted among non-blacks MDRD (S/P/Bld) [Vol rate/Area] 63 mL/min/{1.73_m2} Normal >60 [facility] Comment on above: Order Comment: 211.1 Result Comment: mL/m in/1.73m2 CKD-EPI Creatinine Equation (2020) Performed By: #### L 500.2500, L100.0500 ####[facility] [address] [place], [address] Glucose [Mass/Vol] 97 mg/dL Normal 70-99 [facility] Comment on above: Order Comment: 211.1 Performed By: #### L 500.2500, L100.0500 ####[facility] [address] [place], [address] Sodium [Moles/Vol] 140 mmol/L Normal 133-145 [facility] Comment on above: Order Comment: 211.1 Performed By: #### L 500.2500, L100.0500 ####[facility] [address] [place], [address] Urea nitrogen [Mass/Vol] 20 mg/dL High 4-19 [facility] Comment on above: Order Comment: 211.1 Performed By: #### L 500.2500, L100.0500 ####[facility] [address] [place], [address] CBC-Complete Blood Cnt No Di ffOrdered By: Katrina Berkowitz on 05-08-2025 Erythrocyte distribution width (RBC) [Ratio] 16.9 % High 11.6-14.6 [facility] Comment on above: Order Comment: 211.1 Performed By: #### L 500.2500, L100.0500 ####[facility] [address] [place], [address] Hematocrit (Bld) [Volume fraction] 36.6 % Low 37-47 [facility] Comment on above: Order Comment: 211.1 Performed By: #### L 500.2500, L100.0500 ####[facility] [address] [place], [address] Hemoglobin (Bld) [Mass/Vol] 11.3 g/dL Low 12.0-15.0 [facility] Comment on above: Order Comment: 211.1 Performed By: #### L 500.2500, L100.0500 ####[facility] [address] [place], [address] MCH (RBC) [Entitic mass] 29.5 pg Normal 27.0-32.0 [facility] Comment on above: Order Comment: .1 Performed By: #### L 500.2500, L100.0500 ####[facility] [address] [place], [address] MCV (RBC) [Entitic vol] 95.6 fL Normal 81-99 [facility] Comment on above: Order Comment: 211.1 Performed By: #### L 500.2500, L100.0500 ####[facility] [address] [place], [address] Platelets (Bld) [#/Vol] 280 10*3/uL Normal 150-450 [facility] Comment on above: Order Comment: 211.1 Performed By: #### L 500.2500, L100.0500 ####[facility] [address] [place], [address] RBC (Bld) [#/Vol] 3.83 10*6/uL Low 4.2-5.4 [facility] Comment on above: Order Comment: 211.1 Performed By: #### L 500.2500, L100.0500 ####[facility] [address] [place], [address] WBC (Bld) [#/Vol] 4.7 10*3/uL Normal 4.4-11.0 [facility] Comment on above: Order Comment: 211.1 Performed By: #### L 500.2500, L100.0500 ####[facility] [address] [place], [address] CBC-Complete Blood Cnt No Di ffon 05-08-2025 MCHC (RBC) [Mass/Vol] 30.9 g/dL Low 32-36 [facility] Comment on above: Order Comment: 211.1 Performed By: #### L 500.2500, L100.0500 ####[facility] [address] [place], [address] Platelet mean volume (Bld) [Entitic vol] 10.0 fL Normal 6.2-12.0 [facility] Comment on above: Order Comment: 211.1 Performed By: #### L 500.2500, L100.0500 ####[facility] [address] [place], [address] RDW SD 58.7 fl High 35.1-43.9 [facility] Comment on above: Order Comment: 211.1 Performed By: #### L 500.2500, L100.0500 ####[facility] [address] [place], [address] Erythrocyte distribution wid th standard deviationOrdered By: Katrina Berkowitz on 05-08-2025 Erythrocyte distribution width (RBC) [Ratio] 58.7 fl High 35.1-43.9 [facility] Potassium measurement (mass/ volume)Ordered By: Katrina Berkowitz on 05-08-2025 Potassium (Unsp spec) [Mass/Vol] 5.1 mmol/L 3.3-5.1 [facility] Anion gap in Serum or Plasma Ordered By: Katrina Berkowitz on 04-29-2025 Anion gap [Moles/Vol] 6 mmol/L 5-15 [facility] BUN/creatinine ratioOrdered By: Katrina Berkowitz on 04-29-2025 Urea nitrogen/Creatinine [Mass ratio] 21.7 mg/mg High 04-21 [facility] Basic Metabolic Profile (BMP )on 04-29-2025 BUN/CRE 21.7 RATIO High 04-21 [facility] Comment on above: Order Comment: . Performed By: #### L 501.9520, L500.2500, L503.0106, L100.0500, L501.5200, L506.1001 ####[facility] [address] [place], [address] Calcium [Mass/Vol] 9.1 mg/dL Normal 7.6-11.0 [facility] Comment on above: Order Comment: . Performed By: #### L 501.9520, L500.2500, L503.0106, L100.0500, L501.5200, L506.1001 ####[facility] [address] [place], [address] Chloride [Moles/Vol] 94 mmol/L Low 98-108 [facility] Comment on above: Order Comment: . Performed By: #### L 501.9520, L500.2500, L503.0106, L100.0500, L501.5200, L506.1001 ####[facility] [address] [place], [address] CO2 [Moles/Vol] 35.9 mmol/L High 21.0-32.0 [facility] Comment on above: Order Comment: . Performed By: #### L 501.9520, L500.2500, L503.0106, L100.0500, L501.5200, L506.1001 ####[facility] [address] [place], [address] Creatinine [Mass/Vol] 0.99 mg/dL Normal 0.70-1.20 [facility] Comment on above: Order Comment: 211. Performed By: #### L 501.9520, L500.2500, L503.0106, L100.0500, L501.5200, L506.1001 ####[facility] [address] [place], [address] GAP 6 Normal 5-15 [facility] Comment on above: Order Comment: . Performed By: #### L 501.9520, L500.2500, L503.0106, L100.0500, L501.5200, L506.1001 ####[facility] [address] [place], [address] GFR/1.73 sq M.predicted among non-blacks MDRD (S/P/Bld) [Vol rate/Area] 59 mL/min/{1.73_m2} Low >60 [facility] Comment on above: Order Comment: Result Comment: mL/m in/1.73m2 CKD-EPI Creatinine Equation (2020) Performed By: #### L 501.9520, L500.2500, L503.0106, L100.0500, L501.5200, L506.1001 ####[facility] [address] [place], [address] Glucose [Mass/Vol] 93 mg/dL Normal 70-99 [facility] Comment on above: Order Comment: . Performed By: #### L 501.9520, L500.2500, L503.0106, L100.0500, L501.5200, L506.1001 ####[facility] [address] [place], [address] Potassium [Moles/Vol] 4.9 mmol/L Normal 3.3-5.1 [facility] Comment on above: Order Comment: . Performed By: #### L 501.9520, L500.2500, L503.0106, L100.0500, L501.5200, L506.1001 ####[facility] [address] [place], [address] Sodium [Moles/Vol] 136 mmol/L Normal 133-145 [facility] Comment on above: Order Comment: 211.1 Performed By: #### L 501.9520, L500.2500, L503.0106, L100.0500, L501.5200, L506.1001 ####[facility] [address] [place], [place], [id number] Urea nitrogen [Mass/Vol] 22 mg/dL High 4-19 [facility] Comment on above: Order Comment: 211.1 Performed By: #### L 501.9520, L500.2500, L503.0106, L100.0500, L501.5200, L506.1001 ####[facility] [address] [place], [place], [id number] CBC-Complete Blood Cnt No Di ffon 04-29-2025 Erythrocyte distribution width (RBC) [Ratio] 15.8 % High 11.6-14.6 [facility] Comment on above: Order Comment: 211.1 Performed By: #### L 501.9520, L500.2500, L503.0106, L100.0500, L501.5200, L506.1001 ####[facility] [address] [place], [address] Hematocrit (Bld) [Volume fraction] 34.9 % Low 37-47 [facility] Comment on above: Order Comment: 211.1 Performed By: #### L 501.9520, L500.2500, L503.0106, L100.0500, L501.5200, L506.1001 ####[facility] [address] [place], [address] Hemoglobin (Bld) [Mass/Vol] 10.8 g/dL Low 12.0-15.0 [facility] Comment on above: Order Comment: 211.1 Performed By: #### L 501.9520, L500.2500, L503.0106, L100.0500, L501.5200, L506.1001 ####[facility] [address] [place], [address] MCH (RBC) [Entitic mass] 29.3 pg Normal 27.0-32.0 [facility] Comment on above: Order Comment: .1 Performed By: #### L 501.9520, L500.2500, L503.0106, L100.0500, L501.5200, L506.1001 ####[facility] [address] [place], [address] MCHC (RBC) [Mass/Vol] 30.9 g/dL Low 32-36 [facility] Comment on above: Order Comment: . Performed By: #### L 501.9520, L500.2500, L503.0106, L100.0500, L501.5200, L506.1001 ####[facility] [address] [place], [address] MCV (RBC) [Entitic vol] 94.6 fL Normal 81-99 [facility] Comment on above: Order Comment: . Performed By: #### L 501.9520, L500.2500, L503.0106, L100.0500, L501.5200, L506.1001 ####[facility] [address] [place], [address] Platelet mean volume (Bld) [Entitic vol] 10.4 fL Normal 6.2-12.0 [facility] Comment on above: Order Comment: .1 Performed By: #### L 501.9520, L500.2500, L503.0106, L100.0500, L501.5200, L506.1001 ####[facility] [address] [place], [address] Platelets (Bld) [#/Vol] 144 10*3/uL Low 150-450 [facility] Comment on above: Order Comment: 211.1 Performed By: #### L 501.9520, L500.2500, L503.0106, L100.0500, L501.5200, L506.1001 ####[facility] [address] [place], [address] RBC (Bld) [#/Vol] 3.69 10*6/uL Low 4.2-5.4 [facility] Comment on above: Order Comment: 211.1 Performed By: #### L 501.9520, L500.2500, L503.0106, L100.0500, L501.5200, L506.1001 ####[facility] [address] [place], [address] RDW SD 54.6 fl High 35.1-43.9 [facility] Comment on above: Order Comment: 211.1 Performed By: #### L 501.9520, L500.2500, L503.0106, L100.0500, L501.5200, L506.1001 ####[facility] [address] [place], [address] WBC (Bld) [#/Vol] 5.9 10*3/uL Normal 4.4-11.0 [facility] Comment on above: Order Comment: 211.1 Performed By: #### L 501.9520, L500.2500, L503.0106, L100.0500, L501.5200, L506.1001 ####[facility] [address] [place], [address] Carbon dioxide, total [Moles /volume] in Central venous bloodOrdered By: Katrina Berkowitz on 04-29-2025 CO2 [Moles/Vol] 35.9 mmol/L High 21.0-32.0 [facility] Chloride assayOrdered By: Hermann Berkowitz on 04-29-2025 Chloride [Moles/Vol] 94 mmol/L Low 98-108 [facility] Erythrocyte distribution wid th ratioOrdered By: Katrina Berkowitz on 04-29-2025 Erythrocyte distribution width (RBC) [Ratio] 15.8 % High 11.6-14.6 [facility] Erythrocyte distribution wid th standard deviationOrdered By: Katrina Berkowitz on 04-29-2025 Erythrocyte distribution width (RBC) [Ratio] 54.6 fl High 35.1-43.9 [facility] Glomerular filtration rate ( GFR) estimation/1.73 sq m using serum, plasma, or whole bOrdered By: Katrina Berkowitz on 04-29-2025 GFR/1.73 sq M.predicted among non-blacks MDRD (S/P/Bld) [Vol rate/Area] 59 mL/min/{1.73_m2} Low >60 [facility] Hematocrit Auto (Bld) [Volum e fraction]Ordered By: Katrina Berkowitz on 04-29-2025 Hematocrit (Bld) [Volume fraction] 34.9 % Low 37-47 [facility] Hemoglobin measurementOrdere d By: Katrina Berkowitz on 04-29-2025 Hemoglobin (Bld) [Mass/Vol] 10.8 g/dL Low 12.0-15.0 [facility] MCV (mean corpuscular volume ) determinationOrdered By: Katrina Berkowitz on 04-29-2025 MCV (RBC) [Entitic vol] 94.6 fL 81-99 [facility] Magnesiumon 04-29-2025 Magnesium [Mass/Vol] 1.8 mg/dL Normal 1.5-2.2 [facility] Comment on above: Order Comment: 211.1 Performed By: #### L 501.9520, L500.2500, L503.0106, L100.0500, L501.5200, L506.1001 ####[facility] [address] [place], [address] Magnesium measurement (mass/ volume)Ordered By: Katrina Berkowitz on 04-29-2025 Magnesium (Unsp spec) [Mass/Vol] 1.8 mg/dL 1.5-2.2 [facility] Mean corpuscular hemoglobin (MCH) determinationOrdered By: Katrina Berkowitz on 04-29-2025 MCH (RBC) [Entitic mass] 29.3 pg 27.0-32.0 [facility] Platelet countOrdered By: Hermann Berkowitz on 04-29-2025 Platelets (Bld) [#/Vol] 144 10*3/uL Low 150-450 [facility] Potassium measurement (mass/ volume)Ordered By: Katrina Berkowitz on 04-29-2025 Potassium (Unsp spec) [Mass/Vol] 4.9 mmol/L 3.3-5.1 [facility] RBC Auto (Bld) [#/Vol]Ordere d By: Katrina Berkowitz on 04-29-2025 RBC (Bld) [#/Vol] 3.69 10*6/uL Low 4.2-5.4 [facility] Serum creatinine measurement (mass/volume)Ordered By: Katrina Berkowitz on 04-29-2025 Creatinine [Mass/Vol] 0.99 mg/dL 0.70-1.20 [facility] Serum glucose measurement (m ass/volume)Ordered By: Katrina Berkowitz on 04-29-2025 Glucose [Mass/Vol] 93 mg/dL 70-99 [facility] Serum or plasma calcium lisa urement (mass/volume)Ordered By: Katrina Berkowitz on 04-29-2025 Calcium [Mass/Vol] 9.1 mg/dL 7.6-11.0 [facility] Serum or plasma urea nitroge n measurement (mass/volume)Ordered By: Katrina Berkowitz on 04-29-2025 Urea nitrogen [Mass/Vol] 22 mg/dL High 4-19 [facility] Sodium levelOrdered By: Lilli Berkowitz on 04-29-2025 Sodium [Moles/Vol] 136 mmol/L 133-145 [facility] TSH DL <= 0.005 mIU/L QnOrde red By: Katrina Berkowitz on 04-29-2025 TSH Qn 1.770 uIU/mL 0.300-4.200 [facility] Thyroid Stim Hormone (TSH)on 04-29-2025 TSH 1.770 uIU/mL Normal 0.300-4.200 [facility] Comment on above: Order Comment: 211.1 Performed By: #### L 501.9520, L500.2500, L503.0106, L100.0500, L501.5200, L506.1001 ####[facility] [address] [place], [address] Vitamin B12on 04-29-2025 Cobalamin (Vitamin B12) [Mass/Vol] 394 pg/mL Normal 180-914 [facility] Comment on above: Order Comment: 211.1 Performed By: #### L 501.9520, L500.2500, L503.0106, L100.0500, L501.5200, L506.1001 ####[facility] [address] [place], [address] Vitamin B12 ser/plasOrdered By: Katrina Berkowitz on 04-29-2025 Cobalamin (Vitamin B12) [Mass/Vol] 394 pg/mL 180-914 [facility] Vitamin D,25 Hydroxyon 04-29 Vitamin D 25-OH 36.5 ng/mL Normal 30-100 [facility] Comment on above: Order Comment: 211.1 Result Comment: Lori min D StatusDeficiency: <20 ng/mL (50nmol/L)Insufficiency: 20-30 ng/mL (50-75 nmol/L)Sufficiency: 30-100 ng/mL (75-250 nmol/L)Toxicity: >100 ng/mL (>250 nmol/L) Performed By: #### L 501.9520, L500.2500, L503.0106, L100.0500, L501.5200, L506.1001 ####[facility] [address] [place], [address] White blood cell (WBC) count Ordered By: Katrina Berkowitz on 04-29-2025 WBC (Bld) [#/Vol] 5.9 10*3/uL 4.4-11.0 [facility] Anion gap in Serum or Plasma Ordered By: Katrina Berkowitz on 04-24-2025 Anion gap [Moles/Vol] 7 mmol/L 5-15 [facility] BUN/creatinine ratioOrdered By: Katrina Berkowitz on 04-24-2025 Urea nitrogen/Creatinine [Mass ratio] 21.8 mg/mg High 04-21 [facility] Basic Metabolic Profile (BMP )on 04-24-2025 BUN/CRE 21.8 RATIO High 04-21 [facility] Comment on above: Order Comment: 211.1 Performed By: #### L 501.5200, L500.2500, L100.0500 ####[facility] [address] [place], [address] Calcium [Mass/Vol] 9.0 mg/dL Normal 7.6-11.0 [facility] Comment on above: Order Comment: 211.1 Performed By: #### L 501.5200, L500.2500, L100.0500 ####[facility] [address] [place], [address] Chloride [Moles/Vol] 91 mmol/L Low 98-108 [facility] Comment on above: Order Comment: 211.1 Performed By: #### L 501.5200, L500.2500, L100.0500 ####[facility] [address] [place], [address] CO2 [Moles/Vol] 35.4 mmol/L High 21.0-32.0 [facility] Comment on above: Order Comment: 211.1 Performed By: #### L 501.5200, L500.2500, L100.0500 ####[facility] [address] [place], [address] Creatinine [Mass/Vol] 1.41 mg/dL High 0.70-1.20 [facility] Comment on above: Order Comment: 211.1 Performed By: #### L 501.5200, L500.2500, L100.0500 ####[facility] [address] [place], [address] GAP 7 Normal 5-15 [facility] Comment on above: Order Comment: 211.1 Performed By: #### L 501.5200, L500.2500, L100.0500 ####[facility] [address] [place], [address] GFR/1.73 sq M.predicted among non-blacks MDRD (S/P/Bld) [Vol rate/Area] 39 mL/min/{1.73_m2} Low >60 [facility] Comment on above: Order Comment: 211.1 Result Comment: mL/m in/1.73m2 CKD-EPI Creatinine Equation (2020) Performed By: #### L 501.5200, L500.2500, L100.0500 ####[facility] [address] [place], [address] Glucose [Mass/Vol] 100 mg/dL High 70-99 [facility] Comment on above: Order Comment: 211.1 Performed By: #### L 501.5200, L500.2500, L100.0500 ####[facility] [address] [place], [address] Potassium [Moles/Vol] 4.4 mmol/L Normal 3.3-5.1 [facility] Comment on above: Order Comment: 211.1 Performed By: #### L 501.5200, L500.2500, L100.0500 ####[facility] [address] [place], [address] Sodium [Moles/Vol] 134 mmol/L Normal 133-145 [facility] Comment on above: Order Comment: 211.1 Performed By: #### L 501.5200, L500.2500, L100.0500 ####[facility] [address] [place], [address] Urea nitrogen [Mass/Vol] 31 mg/dL High 4-19 [facility] Comment on above: Order Comment: 211.1 Performed By: #### L 501.5200, L500.2500, L100.0500 ####[facility] [address] [place], [address] CBC-Complete Blood Cnt No Di ffon 04-24-2025 Erythrocyte distribution width (RBC) [Ratio] 15.3 % High 11.6-14.6 [facility] Comment on above: Order Comment: 211.1 Performed By: #### L 501.5200, L500.2500, L100.0500 ####[facility] [address] [place], [address] Hematocrit (Bld) [Volume fraction] 32.9 % Low 37-47 [facility] Comment on above: Order Comment: 211.1 Performed By: #### L 501.5200, L500.2500, L100.0500 ####[facility] [address] [place], [address] Hemoglobin (Bld) [Mass/Vol] 10.7 g/dL Low 12.0-15.0 [facility] Comment on above: Order Comment: 211.1 Performed By: #### L 501.5200, L500.2500, L100.0500 ####[facility] [address] [place], [address] MCH (RBC) [Entitic mass] 29.8 pg Normal 27.0-32.0 [facility] Comment on above: Order Comment: 211.1 Performed By: #### L 501.5200, L500.2500, L100.0500 ####[facility] [address] [place], [address] MCHC (RBC) [Mass/Vol] 32.5 g/dL Normal 32-36 [facility] Comment on above: Order Comment: 211.1 Performed By: #### L 501.5200, L500.2500, L100.0500 ####[facility] [address] [place], [address] MCV (RBC) [Entitic vol] 91.6 fL Normal 81-99 [facility] Comment on above: Order Comment: 211.1 Performed By: #### L 501.5200, L500.2500, L100.0500 ####[facility] [address] [place], [address] Platelet mean volume (Bld) [Entitic vol] 10.8 fL Normal 6.2-12.0 [facility] Comment on above: Order Comment: 211.1 Performed By: #### L 501.5200, L500.2500, L100.0500 ####[facility] [address] [place], [address] Platelets (Bld) [#/Vol] 124 10*3/uL Low 150-450 [facility] Comment on above: Order Comment: 211.1 Performed By: #### L 501.5200, L500.2500, L100.0500 ####[facility] [address] [place], [address] RBC (Bld) [#/Vol] 3.59 10*6/uL Low 4.2-5.4 [facility] Comment on above: Order Comment: 211.1 Performed By: #### L 501.5200, L500.2500, L100.0500 ####[facility] [address] [place], [address] RDW SD 49.9 fl High 35.1-43.9 [facility] Comment on above: Order Comment: 211.1 Performed By: #### L 501.5200, L500.2500, L100.0500 ####[facility] [address] [place], [address] WBC (Bld) [#/Vol] 7.0 10*3/uL Normal 4.4-11.0 [facility] Comment on above: Order Comment: 211.1 Performed By: #### L 501.5200, L500.2500, L100.0500 ####[facility] [address] [place], [place], [address] Carbon dioxide, total [Moles /volume] in Central venous bloodOrdered By: Katrina Berkowitz on 04-24-2025 CO2 [Moles/Vol] 35.4 mmol/L High 21.0-32.0 [facility] Chloride assayOrdered By: Hermann Berkowitz on 04-24-2025 Chloride [Moles/Vol] 91 mmol/L Low 98-108 [facility] Culture, Blood (WB)on 2024 CUB Blood cultures x2, f rom two different sites No growth in 5 days. Normal [facility] Comment on above: Performed By: #### L 100.0100, M200.1000, L503.6005, L501.3620 ####[facility] [address] [place], [place], [address] Erythrocyte distribution wid th ratioOrdered By: Katrina Berkowitz on 04-24-2025 Erythrocyte distribution width (RBC) [Ratio] 15.3 % High 11.6-14.6 [facility] Erythrocyte distribution wid th standard deviationOrdered By: Katrina Berkowitz on 04-24-2025 Erythrocyte distribution width (RBC) [Ratio] 49.9 fl High 35.1-43.9 [facility] Glomerular filtration rate ( GFR) estimation/1.73 sq m using serum, plasma, or whole bOrdered By: Katrina Berkowitz on 04-24-2025 GFR/1.73 sq M.predicted among non-blacks MDRD (S/P/Bld) [Vol rate/Area] 39 mL/min/{1.73_m2} Low >60 [facility] Hematocrit Auto (Bld) [Volum e fraction]Ordered By: Katrina Berkowitz on 04-24-2025 Hematocrit (Bld) [Volume fraction] 32.9 % Low 37-47 [facility] Hemoglobin measurementOrdere d By: Katrina Berkowitz on 04-24-2025 Hemoglobin (Bld) [Mass/Vol] 10.7 g/dL Low 12.0-15.0 [facility] MCV (mean corpuscular volume ) determinationOrdered By: Katrina Berkowitz on 04-24-2025 MCV (RBC) [Entitic vol] 91.6 fL 81-99 [facility] Magnesiumon 04-24-2025 Magnesium [Mass/Vol] 1.3 mg/dL Low 1.5-2.2 [facility] Comment on above: Order Comment: 211.1 Performed By: #### L 501.5200, L500.2500, L100.0500 ####[facility] [address] [place], [place], [id number] Magnesium measurement (mass/ volume)Ordered By: Katrina Berkowitz on 04-24-2025 Magnesium (Unsp spec) [Mass/Vol] 1.3 mg/dL Low 1.5-2.2 [facility] Mean corpuscular hemoglobin (MCH) determinationOrdered By: Katrina Berkowitz on 04-24-2025 MCH (RBC) [Entitic mass] 29.8 pg 27.0-32.0 [facility] Platelet countOrdered By: Hermann Berkowitz on 04-24-2025 Platelets (Bld) [#/Vol] 124 10*3/uL Low 150-450 [facility] Potassium measurement (mass/ volume)Ordered By: Katrina Berkowitz on 04-24-2025 Potassium (Unsp spec) [Mass/Vol] 4.4 mmol/L 3.3-5.1 [facility] RBC Auto (Bld) [#/Vol]Ordere d By: Katrina Berkowitz on 04-24-2025 RBC (Bld) [#/Vol] 3.59 10*6/uL Low 4.2-5.4 [facility] Serum creatinine measurement (mass/volume)Ordered By: Katrina Berkowitz on 04-24-2025 Creatinine [Mass/Vol] 1.41 mg/dL High 0.70-1.20 [facility] Serum glucose measurement (m ass/volume)Ordered By: Katrina Berkowitz on 04-24-2025 Glucose [Mass/Vol] 100 mg/dL High 70-99 [facility] Serum or plasma calcium lisa urement (mass/volume)Ordered By: Katrina Berkowitz on 04-24-2025 Calcium [Mass/Vol] 9.0 mg/dL 7.6-11.0 [facility] Serum or plasma urea nitroge n measurement (mass/volume)Ordered By: Katrina Berkowitz on 04-24-2025 Urea nitrogen [Mass/Vol] 31 mg/dL High 4-19 [facility] Sodium levelOrdered By: Lilli Berkowitz on 04-24-2025 Sodium [Moles/Vol] 134 mmol/L 133-145 [facility] White blood cell (WBC) count Ordered By: Katrina Berkowitz on 04-24-2025 WBC (Bld) [#/Vol] 7.0 10*3/uL 4.4-11.0 [facility] Absolute lymphocyte countOrd ered By: Garfield Pierson on 04-22-2025 Lymphocytes Auto (Unsp spec) [#/Vol] 1.13 10*3/uL 0.83-4.51 [facility] Anion gap in Serum or Plasma Ordered By: Garfield Pierson on 04-22-2025 Anion gap [Moles/Vol] 6 mmol/L 5-15 [facility] Automated lymphocyte count a s percentage of total leukocytesOrdered By: Garfield Pierson on 04-22-2025 Lymphocytes/100 WBC Auto (Unsp spec) 18.2 % Low 19-41 [facility] BUN/creatinine ratioOrdered By: Garfield Pierson on 04-22-2025 Urea nitrogen/Creatinine [Mass ratio] 25.4 mg/mg High 04-21 [facility] Basic Metabolic Profile (BMP )on 04-22-2025 BUN/CRE 25.4 RATIO High 04-21 [facility] Comment on above: Performed By: #### L 100.0100, L500.2500 ####[facility] [address] [place], [address] Calcium [Mass/Vol] 9.7 mg/dL Normal 7.6-11.0 [facility] Comment on above: Performed By: #### L 100.0100, L500.2500 ####[facility] [address] [place], [address] Chloride [Moles/Vol] 88 mmol/L Low 98-108 [facility] Comment on above: Performed By: #### L 100.0100, L500.2500 ####[facility] [address] [place], [address] CO2 [Moles/Vol] 40.0 mmol/L High 21.0-32.0 [facility] Comment on above: Performed By: #### L 100.0100, L500.2500 ####[facility] [address] [place], [address] Creatinine [Mass/Vol] 1.12 mg/dL Normal 0.70-1.20 [facility] Comment on above: Performed By: #### L 100.0100, L500.2500 ####[facility] [address] [place], [address] ECRCL 54.29 ml/min Normal 50-250 [facility] Comment on above: Performed By: #### L 100.0100, L500.2500 ####[facility] [address] [place], [address] GAP 6 Normal 5-15 [facility] Comment on above: Performed By: #### L 100.0100, L500.2500 ####[facility] [address] [place], [address] GFR/1.73 sq M.predicted among non-blacks MDRD (S/P/Bld) [Vol rate/Area] 51 mL/min/{1.73_m2} Low >60 [facility] Comment on above: Result Comment: mL/m in/1.73m2 CKD-EPI Creatinine Equation (2020) Performed By: #### L 100.0100, L500.2500 ####[facility] [address] [place], [address] Glucose [Mass/Vol] 102 mg/dL High 70-99 [facility] Comment on above: Performed By: #### L 100.0100, L500.2500 ####[facility] [address] [place], [address] Potassium [Moles/Vol] 4.7 mmol/L Normal 3.3-5.1 [facility] Comment on above: Performed By: #### L 100.0100, L500.2500 ####[facility] [address] [place], [address] Sodium [Moles/Vol] 134 mmol/L Normal 133-145 [facility] Comment on above: Performed By: #### L 100.0100, L500.2500 ####[facility] [address] [place], [address] Urea nitrogen [Mass/Vol] 28 mg/dL High 4-19 [facility] Comment on above: Performed By: #### L 100.0100, L500.2500 ####[facility] [address] [place], [address] Basophil percentageOrdered B y: Garfield Pierson on 04-22-2025 Basophils/100 WBC (Bld) 0.8 % 0-1 [facility] CBC W/Diff, Automatedon 10- Absolute Lymph 1.13 X10 3/uL Normal 0.83-4.51 [facility] Comment on above: Performed By: #### L 100.0100, L500.2500 ####[facility] [address] [place], [address] Absolute Neut 4.2 X10 3/uL Normal 2.0-7.7 [facility] Comment on above: Performed By: #### L 100.0100, L500.2500 ####[facility] [address], [address] Basophils/100 WBC (Bld) 0.8 % Normal 0-1 [facility] Comment on above: Performed By: #### L 100.0100, L500.2500 ####[facility] [address], [address] Eosinophils/100 WBC (Bld) 3.7 % Normal 0-5 [facility] Comment on above: Performed By: #### L 100.0100, L500.2500 ####[facility] [address] [place], [address] Erythrocyte distribution width (RBC) [Ratio] 14.6 % Normal 11.6-14.6 [facility] Comment on above: Performed By: #### L 100.0100, L500.2500 ####[facility] [address] [place], [address] Hematocrit (Bld) [Volume fraction] 38.2 % Normal 37-47 [facility] Comment on above: Performed By: #### L 100.0100, L500.2500 ####[facility] [address] [place], [address] Hemoglobin (Bld) [Mass/Vol] 12.3 g/dL Normal 12.0-15.0 [facility] Comment on above: Performed By: #### L 100.0100, L500.2500 ####[facility] [address] [place], [address] IG% 1.800 High 0.0-0.9 [facility] Comment on above: Result Comment: IG% - Immature Granulocytes (promyelocytes, myelocytes andmetamyelocytes) > 1% indicates that a LEFT SHIFT is Present. Performed By: #### L 100.0100, L500.2500 ####[facility] [address] [place], [address] Lymphocytes/100 WBC (Bld) 18.2 % Low 19-41 [facility] Comment on above: Performed By: #### L 100.0100, L500.2500 ####[facility] [address] [place], [address] MCH (RBC) [Entitic mass] 29.2 pg Normal 27.0-32.0 [facility] Comment on above: Performed By: #### L 100.0100, L500.2500 ####[facility] [address] [place], [address] MCHC (RBC) [Mass/Vol] 32.2 g/dL Normal 32-36 [facility] Comment on above: Performed By: #### L 100.0100, L500.2500 ####[facility] [address] [place], [address] MCV (RBC) [Entitic vol] 90.7 fL Normal 81-99 [facility] Comment on above: Performed By: #### L 100.0100, L500.2500 ####[facility] [address] [place], [address] Monocytes/100 WBC (Bld) 8.7 % Normal 0-10 [facility] Comment on above: Performed By: #### L 100.0100, L500.2500 ####[facility] [address] [place], [address] Neutrophils/100 WBC (Bld) 66.8 % Normal 47-70 [facility] Comment on above: Performed By: #### L 100.0100, L500.2500 ####[facility] [address] [place], [address] Nucleated RBC (Bld) [#/Vol] 0 10*3/uL Normal 0-5 [facility] Comment on above: Performed By: #### L 100.0100, L500.2500 ####[facility] [address] [place], [address] Platelet mean volume (Bld) [Entitic vol] 10.6 fL Normal 6.2-12.0 [facility] Comment on above: Performed By: #### L 100.0100, L500.2500 ####[facility] [address] [place], [address] Platelets (Bld) [#/Vol] 115 10*3/uL Low 150-450 [facility] Comment on above: Performed By: #### L 100.0100, L500.2500 ####[facility] [address] [place], [address] RBC (Bld) [#/Vol] 4.21 10*6/uL Normal 4.2-5.4 [facility] Comment on above: Performed By: #### L 100.0100, L500.2500 ####[facility] [address] [place], [address] RDW SD 47.8 fl High 35.1-43.9 [facility] Comment on above: Performed By: #### L 100.0100, L500.2500 ####[facility] [address] [place], [address] WBC (Bld) [#/Vol] 6.2 10*3/uL Normal 4.4-11.0 [facility] Comment on above: Performed By: #### L 100.0100, L500.2500 ####[facility] [address] [place], [address] Carbon dioxide, total [Moles /volume] in Central venous bloodOrdered By: Garfield Pierson on 04-22-2025 CO2 [Moles/Vol] 40.0 mmol/L High 21.0-32.0 [facility] Chloride assayOrdered By: Nina Pierson on 04-22-2025 Chloride [Moles/Vol] 88 mmol/L Low 98-108 [facility] Eosinophil percentageOrdered By: Garfield Pierson on 04-22-2025 Eosinophils/100 WBC (Bld) 3.7 % 0-5 [facility] Erythrocyte distribution wid th ratioOrdered By: Garfield Pierson on 04-22-2025 Erythrocyte distribution width (RBC) [Ratio] 14.6 % 11.6-14.6 [facility] Erythrocyte distribution wid th standard deviationOrdered By: Garfield Pierson on 04-22-2025 Erythrocyte distribution width (RBC) [Ratio] 47.8 fl High 35.1-43.9 [facility] Glomerular filtration rate ( GFR) estimation/1.73 sq m using serum, plasma, or whole bOrdered By: Garfield Pierson on 04-22-2025 GFR/1.73 sq M.predicted among non-blacks MDRD (S/P/Bld) [Vol rate/Area] 51 mL/min/{1.73_m2} Low >60 [facility] Hematocrit Auto (Bld) [Volum e fraction]Ordered By: Garfield Pierson on 04-22-2025 Hematocrit (Bld) [Volume fraction] 38.2 % 37-47 [facility] Hemoglobin measurementOrdere d By: Garfield Pierson on 04-22-2025 Hemoglobin (Bld) [Mass/Vol] 12.3 g/dL 12.0-15.0 [facility] Immature granulocytes/100 WB C Auto (Bld)Ordered By: Garfield Pierson on 04-22-2025 Immature granulocytes/100 WBC (Bld) 1.800 % High 0.0-0.9 [facility] MCV (mean corpuscular volume ) determinationOrdered By: Garfield Pierson on 04-22-2025 MCV (RBC) [Entitic vol] 90.7 fL 81-99 [facility] Mean corpuscular hemoglobin (MCH) determinationOrdered By: Garfield Pierson on 04-22-2025 MCH (RBC) [Entitic mass] 29.2 pg 27.0-32.0 [facility] Monocyte percentageOrdered B y: Garfield Pierson on 04-22-2025 Monocytes/100 WBC (Bld) 8.7 % 0-10 [facility] Neutrophil percentageOrdered By: Garfield Pierson on 04-22-2025 Neutrophils/100 WBC (Bld) 66.8 % 47-70 [facility] Platelet countOrdered By: Nina Pierson on 04-22-2025 Platelets (Bld) [#/Vol] 115 10*3/uL Low 150-450 [facility] Potassium measurement (mass/ volume)Ordered By: Garfield Pierson on 04-22-2025 Potassium (Unsp spec) [Mass/Vol] 4.7 mmol/L 3.3-5.1 [facility] RBC Auto (Bld) [#/Vol]Ordere d By: Garfield Pierson on 04-22-2025 RBC (Bld) [#/Vol] 4.21 10*6/uL 4.2-5.4 [facility] Serum creatinine measurement (mass/volume)Ordered By: Garfield Pierson on 04-22-2025 Creatinine [Mass/Vol] 1.12 mg/dL 0.70-1.20 [facility] Serum glucose measurement (m ass/volume)Ordered By: Garfield Pierson on 04-22-2025 Glucose [Mass/Vol] 102 mg/dL High 70-99 [facility] Serum or plasma calcium lisa urement (mass/volume)Ordered By: Garfield Pierson on 04-22-2025 Calcium [Mass/Vol] 9.7 mg/dL 7.6-11.0 [facility] Serum or plasma urea nitroge n measurement (mass/volume)Ordered By: Garfield Pierson on 04-22-2025 Urea nitrogen [Mass/Vol] 28 mg/dL High 4-19 [facility] Sodium levelOrdered By: Asha Pierson on 04-22-2025 Sodium [Moles/Vol] 134 mmol/L 133-145 [facility] Urine Cultureon 04-22-2025 [facility] Mixed Gram Pos Gram Neg Org [place] Count 11,000-25,000 [facility] Mixed contaminants. Submit a new specimen if indicated. Normal [facility] Comment on above: Performed By: #### M 300.4500, M100.2200, M8200.1000, M100.678, L8200.1000, M300.4600, L400.0001 ####[facility] [address] [place], [address] White blood cell (WBC) count Ordered By: Garfield Pierson on 04-22-2025 WBC (Bld) [#/Vol] 6.2 10*3/uL 4.4-11.0 [facility] Basic Metabolic Profile (BMP )on 04-21-2025 BUN/CRE 27.3 RATIO High 04-21 [facility] Comment on above: Performed By: #### L 100.0100, L500.2500 ####[facility] [address] [place], [address] Calcium [Mass/Vol] 9.0 mg/dL Normal 7.6-11.0 [facility] Comment on above: Performed By: #### L 100.0100, L500.2500 ####[facility] [address] [place], [address] Chloride [Moles/Vol] 85 mmol/L Low 98-108 [facility] Comment on above: Performed By: #### L 100.0100, L500.2500 ####[facility] [address] [place], [address] CO2 [Moles/Vol] 37.5 mmol/L High 21.0-32.0 [facility] Comment on above: Performed By: #### L 100.0100, L500.2500 ####[facility] [address] [place], [address] Creatinine [Mass/Vol] 1.20 mg/dL Normal 0.70-1.20 [facility] Comment on above: Performed By: #### L 100.0100, L500.2500 ####[facility] [address] [place], [address] ECRCL 50.67 ml/min Normal 50-250 [facility] Comment on above: Performed By: #### L 100.0100, L500.2500 ####[facility] [address] [place], [address] GAP 5 Normal 5-15 [facility] Comment on above: Performed By: #### L 100.0100, L500.2500 ####[facility] [address] [place], [address] GFR/1.73 sq M.predicted among non-blacks MDRD (S/P/Bld) [Vol rate/Area] 47 mL/min/{1.73_m2} Low >60 [facility] Comment on above: Result Comment: mL/m in/1.73m2 CKD-EPI Creatinine Equation (2020) Performed By: #### L 100.0100, L500.2500 ####[facility] [address] [place], [address] Glucose [Mass/Vol] 130 mg/dL High 70-99 [facility] Comment on above: Performed By: #### L 100.0100, L500.2500 ####[facility] [address] [place], [address] Potassium [Moles/Vol] 4.2 mmol/L Normal 3.3-5.1 [facility] Comment on above: Performed By: #### L 100.0100, L500.2500 ####[facility] [address] [place], [address] Sodium [Moles/Vol] 127 mmol/L Low 133-145 [facility] Comment on above: Performed By: #### L 100.0100, L500.2500 ####[facility] [address] [place], [address] Urea nitrogen [Mass/Vol] 33 mg/dL High 4-19 [facility] Comment on above: Performed By: #### L 100.0100, L500.2500 ####[facility] [address] [place], [address] CBC W/Diff, Automatedon 10-2 0-2025 Absolute Lymph 1.01 X10 3/uL Normal 0.83-4.51 [facility] Comment on above: Performed By: #### L 100.0100, L500.2500 ####[facility] [address] [place], [address] Absolute Neut 5.7 X10 3/uL Normal 2.0-7.7 [facility] Comment on above: Performed By: #### L 100.0100, L500.2500 ####[facility] [address] [place], [address] Basophils/100 WBC (Bld) 0.5 % Normal 0-1 [facility] Comment on above: Performed By: #### L 100.0100, L500.2500 ####[facility] [address] [place], [address] Eosinophils/100 WBC (Bld) 2.6 % Normal 0-5 [facility] Comment on above: Performed By: #### L 100.0100, L500.2500 ####[facility] [address] [place], [address] Erythrocyte distribution width (RBC) [Ratio] 14.6 % Normal 11.6-14.6 [facility] Comment on above: Performed By: #### L 100.0100, L500.2500 ####[facility] [address] [place], [address] Hematocrit (Bld) [Volume fraction] 35.2 % Low 37-47 [facility] Comment on above: Performed By: #### L 100.0100, L500.2500 ####[facility] [address] [place], [address] Hemoglobin (Bld) [Mass/Vol] 11.5 g/dL Low 12.0-15.0 [facility] Comment on above: Performed By: #### L 100.0100, L500.2500 ####[facility] [address] [place], [address] IG% 1.100 High 0.0-0.9 [facility] Comment on above: Result Comment: IG% - Immature Granulocytes (promyelocytes, myelocytes andmetamyelocytes) > 1% indicates that a LEFT SHIFT is Present. Performed By: #### L 100.0100, L500.2500 ####[facility] [address] [place], [address] Lymphocytes/100 WBC (Bld) 13.3 % Low 19-41 [facility] Comment on above: Performed By: #### L 100.0100, L500.2500 ####[facility] [address] [place], [address] MCH (RBC) [Entitic mass] 29.4 pg Normal 27.0-32.0 [facility] Comment on above: Performed By: #### L 100.0100, L500.2500 ####[facility] [address] [place], [address] MCHC (RBC) [Mass/Vol] 32.7 g/dL Normal 32-36 [facility] Comment on above: Performed By: #### L 100.0100, L500.2500 ####[facility] [address] [place], [address] MCV (RBC) [Entitic vol] 90.0 fL Normal 81-99 [facility] Comment on above: Performed By: #### L 100.0100, L500.2500 ####[facility] [address] [place], [address] Monocytes/100 WBC (Bld) 8.1 % Normal 0-10 [facility] Comment on above: Performed By: #### L 100.0100, L500.2500 ####[facility] [address] [place], [address] Neutrophils/100 WBC (Bld) 74.4 % High 47-70 [facility] Comment on above: Performed By: #### L 100.0100, L500.2500 ####[facility] [address] [place], [address] Nucleated RBC (Bld) [#/Vol] 0 10*3/uL Normal 0-5 [facility] Comment on above: Performed By: #### L 100.0100, L500.2500 ####[facility] [address] [place], [address] Platelet mean volume (Bld) [Entitic vol] 10.7 fL Normal 6.2-12.0 [facility] Comment on above: Performed By: #### L 100.0100, L500.2500 ####[facility] [address] [place], [address] Platelets (Bld) [#/Vol] 113 10*3/uL Low 150-450 [facility] Comment on above: Performed By: #### L 100.0100, L500.2500 ####[facility] [address] [place], [address] RBC (Bld) [#/Vol] 3.91 10*6/uL Low 4.2-5.4 [facility] Comment on above: Performed By: #### L 100.0100, L500.2500 ####[facility] [address] [place], [address] RDW SD 46.6 fl High 35.1-43.9 [facility] Comment on above: Performed By: #### L 100.0100, L500.2500 ####[facility] [address] [place], [address] WBC (Bld) [#/Vol] 7.6 10*3/uL Normal 4.4-11.0 [facility] Comment on above: Performed By: #### L 100.0100, L500.2500 ####[facility] [address] [place], [address] Consultation - Nephrologyon 04-21-2025 Consultation - Nephrology Normal [facility] Venous Duplex US - Chase Extre mon 04-21-2025 Venous Duplex US - Chase Extrem Normal [facility] Venous duplex ultrasound rep ortOrdered By: Dm Fong on 04-21-2025 US Vein [facility] Other Phone: US Vein [facility] Other Phone: Amphetamine detection with 1 000 ng/mL as cutoffOrdered By: Garfield Pierson on 04-20-2025 Amphetamines Screen method >1000 ng/mL Ql (U) Negative < 200 ng/mL [facility] Basic Metabolic Profile (BMP )on 04-20-2025 BUN/CRE 29.4 RATIO High 04-21 [facility] Comment on above: Performed By: #### L 100.0100, L500.2500 ####[facility] [address] [place], [address] Calcium [Mass/Vol] 9.0 mg/dL Normal 7.6-11.0 [facility] Comment on above: Performed By: #### L 100.0100, L500.2500 ####[facility] [address] [place], [address] Chloride [Moles/Vol] 83 mmol/L Low 98-108 [facility] Comment on above: Performed By: #### L 100.0100, L500.2500 ####[facility] [address] [place], [address] CO2 [Moles/Vol] 36.7 mmol/L High 21.0-32.0 [facility] Comment on above: Performed By: #### L 100.0100, L500.2500 ####[facility] [address] [place], [address] Creatinine [Mass/Vol] 1.31 mg/dL High 0.70-1.20 [facility] Comment on above: Performed By: #### L 100.0100, L500.2500 ####[facility] [address] [place], [address] ECRCL 46.46 ml/min Low 50-250 [facility] Comment on above: Performed By: #### L 100.0100, L500.2500 ####[facility] [address] [place], [address] GAP 5 Normal 5-15 [facility] Comment on above: Performed By: #### L 100.0100, L500.2500 ####[facility] [address] [place], [address] GFR/1.73 sq M.predicted among non-blacks MDRD (S/P/Bld) [Vol rate/Area] 42 mL/min/{1.73_m2} Low >60 [facility] Comment on above: Result Comment: mL/m in/1.73m2 CKD-EPI Creatinine Equation (2020) Performed By: #### L 100.0100, L500.2500 ####[facility] [address] [place], [address] Glucose [Mass/Vol] 113 mg/dL High 70-99 [facility] Comment on above: Performed By: #### L 100.0100, L500.2500 ####[facility] [address] [place], [address] Potassium [Moles/Vol] 4.0 mmol/L Normal 3.3-5.1 [facility] Comment on above: Performed By: #### L 100.0100, L500.2500 ####[facility] [address] [place], [address] Sodium [Moles/Vol] 125 mmol/L Low 133-145 [facility] Comment on above: Performed By: #### L 100.0100, L500.2500 ####[facility] [address] [place], [address] Urea nitrogen [Mass/Vol] 39 mg/dL High - [facility] Comment on above: Performed By: #### L 100.0100, L500.2500 ####[facility] [address] [place], [address] Bilirubin Test strip Ql (U)O rdered By: Garfield Pierson on 04-20-2025 Bilirubin Ql (U) Negative Negative [facility] CBC W/Diff, Automatedon 04-02 Absolute Lymph 1.11 X10 3/uL Normal 0.83-4.51 [facility] Comment on above: Performed By: #### L 100.0100, L500.2500 ####[facility] [address] [place], [address] Absolute Neut 5.5 X10 3/uL Normal 2.0-7.7 [facility] Comment on above: Performed By: #### L 100.0100, L500.2500 ####[facility] [address] [place], [address] Basophils/100 WBC (Bld) 0.4 % Normal 0-1 [facility] Comment on above: Performed By: #### L 100.0100, L500.2500 ####[facility] [address] [place], [address] Eosinophils/100 WBC (Bld) 2.9 % Normal 0-5 [facility] Comment on above: Performed By: #### L 100.0100, L500.2500 ####[facility] [address] [place], [address] Erythrocyte distribution width (RBC) [Ratio] 14.5 % Normal 11.6-14.6 [facility] Comment on above: Performed By: #### L 100.0100, L500.2500 ####[facility] [address] [place], [address] Hematocrit (Bld) [Volume fraction] 34.4 % Low 37-47 [facility] Comment on above: Performed By: #### L 100.0100, L500.2500 ####[facility] [address] [place], [address] Hemoglobin (Bld) [Mass/Vol] 11.1 g/dL Low 12.0-15.0 [facility] Comment on above: Performed By: #### L 100.0100, L500.2500 ####[facility] [address] [place], [address] IG% 0.900 Normal 0.0-0.9 [facility] Comment on above: Result Comment: IG% - Immature Granulocytes (promyelocytes, myelocytes andmetamyelocytes) > 1% indicates that a LEFT SHIFT is Present. Performed By: #### L 100.0100, L500.2500 ####[facility] [address] [place], [address] Lymphocytes/100 WBC (Bld) 14.8 % Low 19-41 [facility] Comment on above: Performed By: #### L 100.0100, L500.2500 ####[facility] [address] [place], [address] MCH (RBC) [Entitic mass] 29.1 pg Normal 27.0-32.0 [facility] Comment on above: Performed By: #### L 100.0100, L500.2500 ####[facility] [address] [place], [address] MCHC (RBC) [Mass/Vol] 32.3 g/dL Normal 32-36 [facility] Comment on above: Performed By: #### L 100.0100, L500.2500 ####[facility] [address] [place], [address] MCV (RBC) [Entitic vol] 90.3 fL Normal 81-99 [facility] Comment on above: Performed By: #### L 100.0100, L500.2500 ####[facility] [address] [place], [address] Monocytes/100 WBC (Bld) 7.7 % Normal 0-10 [facility] Comment on above: Performed By: #### L 100.0100, L500.2500 ####[facility] [address] [place], [address] Neutrophils/100 WBC (Bld) 73.3 % High 47-70 [facility] Comment on above: Performed By: #### L 100.0100, L500.2500 ####[facility] [address] [place], [address] Nucleated RBC (Bld) [#/Vol] 0 10*3/uL Normal 0-5 [facility] Comment on above: Performed By: #### L 100.0100, L500.2500 ####[facility] [address] [place], [address] Platelet mean volume (Bld) [Entitic vol] 10.5 fL Normal 6.2-12.0 [facility] Comment on above: Performed By: #### L 100.0100, L500.2500 ####[facility] [address] [place], [address] Platelets (Bld) [#/Vol] 115 10*3/uL Low 150-450 [facility] Comment on above: Performed By: #### L 100.0100, L500.2500 ####[facility] [address] [place], [address] RBC (Bld) [#/Vol] 3.81 10*6/uL Low 4.2-5.4 [facility] Comment on above: Performed By: #### L 100.0100, L500.2500 ####[facility] [address] [place], [address] RDW SD 47.6 fl High 35.1-43.9 [facility] Comment on above: Performed By: #### L 100.0100, L500.2500 ####[facility] [address] [place], [address] WBC (Bld) [#/Vol] 7.5 10*3/uL Normal 4.4-11.0 [facility] Comment on above: Performed By: #### L 100.0100, L500.2500 ####[facility] [address] [place], [address] Ketones Test strip Ql (U)Ord ered By: Garfield Pierson on 04-20-2025 Ketones Ql (U) Negative Negative [facility] Legionella Antigen Urineon 1 LEGU Normal [facility] Comment on above: Performed By: #### M 300.4500, M100.2200, M8200.1000, M100.678, L8200.1000, M300.4600, L400.0001 ####[facility] [address] [place], [address] Mucus LM Ql (Urine sed)Order ed By: Garfield Pierson on 04-20-2025 Mucus Ql (Urine sed) 0 SEEN /hpf [facility] Nitrite Test strip Ql (U)Ord ered By: Garfield Pierson on 04-20-2025 Nitrite Ql (U) Negative Negative [facility] No Panel InformationOrdered By: Garfield Pierson on 04-20-2025 Negative < 200 ng/mL [facility] Osmolality urOrdered By: Aminata Pierson on 04-20-2025 Osmolality (U) [Osmolality] 263 mOsm/KG >50 [facility] Osmolality, Urineon 04-20-20 25 OSMOLALITY,UR 263 mOsm/KG Normal [facility] Comment on above: Result Comment: Norm al Urine Reference Ranges Random: 50 - 1200 mOsm/kg H20 depending on fluid intake Random: >850 mOsm/kg after 12 hour fluid restriction 24 hour: 300 - 900 mOsm/kg H2O Performed By: #### L 501.7400 ####[facility] [address] [place], [address] Protein Test strip Ql (U)Ord ered By: Garfield Pierson on 04-20-2025 Protein Ql (U) 30 mg/dl High Negative [facility] Screening urine fentanyl bubba surementOrdered By: Garfield Pierson on 04-20-2025 fentaNYL Screen Ql (U) Negative <5 ng/mL [facility] Squamous epithelial cells de tection in urine sediment by light microscopyOrdered By: Garfield Pierson on 04-20-2025 Epithelial cells.squamous LM Ql (Urine sed) 0-5 SEEN /hpf 5-10 [facility] Strep pneumoniae Antig(UR,CS F)on 04-20-2025 STPAG Normal [facility] Comment on above: Performed By: #### M 300.4500, M100.2200, M8200.1000, M100.678, L8200.1000, M300.4600, L400.0001 ####[facility] [address] [place], [address] Transitional cells detection in urine sediment by light microscopyOrdered By: Garfield Pierson on 04-20-2025 Transitional cells LM Ql (Urine sed) 0-5 SEEN /hpf 0-5 [facility] Urinalysis, Completeon 04-20 EPI,SQUAMOUS 0-5 SEEN Normal 5-10 [facility] Comment on above: Order Comment: DALY CHAVEZ TO SPECIFY Performed By: #### M 300.4500, M100.2200, M8200.1000, M100.678, L8200.1000, M300.4600, L400.0001 ####[facility] [address] [place], [address] EPI,TRANSITION 0-5 SEEN Normal 0-5 [facility] Comment on above: Order Comment: DALY CTOR TO SPECIFY Performed By: #### M 300.4500, M100.2200, M8200.1000, M100.678, L8200.1000, M300.4600, L400.0001 ####[facility] [address] [place], [address] BACTERIA 0 SEEN Normal None Seen [facility] Comment on above: Order Comment: DALY CTOR TO SPECIFY Performed By: #### M 300.4500, M100.2200, M8200.1000, M100.678, L8200.1000, M300.4600, L400.0001 ####[facility] [address] [place], [address] Mucus Ql (Urine sed) 0 SEEN Normal [facility] Comment on above: Order Comment: DALY CTOR TO SPECIFY Performed By: #### M 300.4500, M100.2200, M8200.1000, M100.678, L8200.1000, M300.4600, L400.0001 ####[facility] [address] [place], [address] RBC 0 SEEN Normal 0-5 [facility] Comment on above: Order Comment: DALY CTOR TO SPECIFY Performed By: #### M 300.4500, M100.2200, M8200.1000, M100.678, L8200.1000, M300.4600, L400.0001 ####[facility] [address] [place], [address] WBC 0 SEEN Normal 0-5 [facility] Comment on above: Order Comment: DALY CTOR TO SPECIFY Performed By: #### M 300.4500, M100.2200, M8200.1000, M100.678, L8200.1000, M300.4600, L400.0001 ####[facility] [address] [place], [address] Urine Drug Screen (VISTA)on 04-20-2025 AMPHETAMINES Negative Normal <1000 ng/mL [facility] Comment on above: Performed By: #### L 505.5000 ####[facility] [address] [place], [place], [address] BARBITIURATES Negative Normal < 200 ng/mL [facility] Comment on above: Performed By: #### L 505.5000 ####[facility] [address] [facility] [id number] BENZODIAZIPINE Negative Normal < 200 ng/mL [facility] Comment on above: Performed By: #### L 505.5000 ####[facility] [address] [place], [place], [address] BUP Ur Drug Scr Negative Normal < 200 ng/mL [facility] Comment on above: Performed By: #### L 505.5000 ####[facility] [address] [place], [place], [id number] COCAINE Negative Normal < 300 ng/mL [facility] Comment on above: Performed By: #### L 505.5000 ####[facility] [address] [place], [place], [phone] Fentanyl Negative Normal <5 ng/mL [facility] Comment on above: Result Comment: CONF IRMATORY [...] testmnemonic: UTCA Performed By: #### L 505.5000 ####[facility] [address] [place], [place], [id number] METHADONE Negative Normal < 300 ng/mL [facility] Comment on above: Performed By: #### L 505.5000 ####[facility] [address] [place], [address] OPIATES Negative Normal < 300 ng/mL [facility] Comment on above: Performed By: #### L 505.5000 ####[facility] [address] [place], [address] OXYCODONE Negative Normal < 100 ng/mL [facility] Comment on above: Performed By: #### L 505.5000 ####[facility] [address] [place], [address] PCP Negative Normal < 25 ng/mL [facility] Comment on above: Performed By: #### L 505.5000 ####[facility] [address] [place], [address] THC Negative Normal < 50 ng/mL [facility] Comment on above: Performed By: #### L 505.5000 ####[facility] [address] [place], [address] Urine Legionella pneumophila antigen detectionOrdered By: Garfield Pierson on 04-20-2025 L. pneumophila Ag Ql (U) [facility] L. pneumophila Ag Ql (U) [facility] Urine Sodiumon 04-20-2025 Sodium (U) [Moles/Vol] 34 mmol/L Normal Not Establ. [facility] Comment on above: Performed By: #### L 501.5500 ####[facility] [address] [place], [address] Urine clarityOrdered By: Aminata Pierson on 04-20-2025 Clarity (U) Sl. Cloudy Clear [facility] Urine color determinationOrd ered By: Garfield Pierson on 04-20-2025 Color (U) Yellow Yellow [facility] Urine cultureOrdered By: Amniata Pierson on 04-20-2025 Bacteria identified Cx Nom (U) Mixed Gram Pos & Gram Neg Org Abnormal [facility] Bacteria identified Cx Nom (U) Mixed Gram Pos & Gram Neg Org Abnormal [facility] Urine glucose detectionOrder ed By: Garfield Pierson on 04-20-2025 Glucose Ql (U) 250 mg/dl High Normal [facility] Urine leukocyte esterase det ection by dipstickOrdered By: Garfield Pierson on 04-20-2025 Leukocyte esterase Test strip Ql (U) Negative Negative [facility] Urine pHOrdered By: Garfield Pierson on 04-20-2025 pH (U) 6.0 [pH] 5.0 - 8.0 [facility] Urine phencyclidine (PCP) de tectionOrdered By: Garfield Pierson on 04-20-2025 Phencyclidine Ql (U) Negative < 25 ng/mL [facility] Urine sediment bacteria coun t by microscopy (number/high power field)Ordered By: Garfield Pierson on 04-20-2025 Bacteria LM.HPF (Urine sed) [#/Area] 0 /[HPF] None Seen [facility] Urine sodium measurement (mo les/volume)Ordered By: Jermaine Simms on 04-20-2025 Sodium (U) [Moles/Vol] 34 mmol/L Not Establ. [facility] Urine specific gravity measu rementOrdered By: Garfield Pierson on 04-20-2025 Specific gravity (U) [Rel density] 1.010 1.002-1.030 [facility] Urine urobilinogen measureme ntOrdered By: Garfield Pierson on 04-20-2025 Urobilinogen Ql (U) Normal mg/dl Normal [facility] White blood cell countOrdere d By: Garfield Pierson on 04-20-2025 White blood cell count 0 SEEN /hpf 0-5 [facility] Basic Metabolic Profile (BMP )on 04-19-2025 BUN/CRE 28.8 RATIO High 04-21 [facility] Comment on above: Performed By: #### L 500.2500 ####[facility] [address] [place], [address] Calcium [Mass/Vol] 8.8 mg/dL Normal 7.6-11.0 [facility] Comment on above: Performed By: #### L 500.2500 ####[facility] [address] [place], [address] Chloride [Moles/Vol] 83 mmol/L Low 98-108 [facility] Comment on above: Performed By: #### L 500.2500 ####[facility] [address] [place], [address] CO2 [Moles/Vol] 33.7 mmol/L High 21.0-32.0 [facility] Comment on above: Performed By: #### L 500.2500 ####[facility] [address] [place], [address] Creatinine [Mass/Vol] 1.39 mg/dL High 0.70-1.20 [facility] Comment on above: Performed By: #### L 500.2500 ####[facility] [address] [place], [address] ECRCL 43.20 ml/min Low 50-250 [facility] Comment on above: Performed By: #### L 500.2500 ####[facility] [address] [place], [address] GAP 9 Normal 5-15 [facility] Comment on above: Performed By: #### L 500.2500 ####[facility] [address] [place], [address] GFR/1.73 sq M.predicted among non-blacks MDRD (S/P/Bld) [Vol rate/Area] 39 mL/min/{1.73_m2} Low >60 [facility] Comment on above: Result Comment: mL/m in/1.73m2 CKD-EPI Creatinine Equation (2020) Performed By: #### L 500.2500 ####[facility] [address] [place], [address] Glucose [Mass/Vol] 128 mg/dL High 70-99 [facility] Comment on above: Performed By: #### L 500.2500 ####[facility] [address] [place], [address] Potassium [Moles/Vol] 4.3 mmol/L Normal 3.3-5.1 [facility] Comment on above: Performed By: #### L 500.2500 ####[facility] [address] [place], [address] Sodium [Moles/Vol] 125 mmol/L Low 133-145 [facility] Comment on above: Performed By: #### L 500.2500 ####[facility] [address] [place], [address] Urea nitrogen [Mass/Vol] 40 mg/dL High 4-19 [facility] Comment on above: Performed By: #### L 500.2500 ####[facility] [address] [place], [address] BUN/CRE 30.5 RATIO High 10-20 [facility] Comment on above: Performed By: #### L 500.4100, L500.2500, L100.0500 ####[facility] [address] [place], [address] Calcium [Mass/Vol] 9.4 mg/dL Normal 7.6-11.0 [facility] Comment on above: Performed By: #### L 500.4100, L500.2500, L100.0500 ####[facility] [address] [place], [address] Chloride [Moles/Vol] 78 mmol/L Low 98-108 [facility] Comment on above: Performed By: #### L 500.4100, L500.2500, L100.0500 ####[facility] [address] [place], [address] CO2 [Moles/Vol] 40.9 mmol/L High 21.0-32.0 [facility] Comment on above: Performed By: #### L 500.4100, L500.2500, L100.0500 ####[facility] [address] [place], [address] Creatinine [Mass/Vol] 1.33 mg/dL High 0.70-1.20 [facility] Comment on above: Performed By: #### L 500.4100, L500.2500, L100.0500 ####[facility] [address] [place], [address] ECRCL 45.15 ml/min Low 50-250 [facility] Comment on above: Performed By: #### L 500.4100, L500.2500, L100.0500 ####[facility] [address] [place], [address] GAP 4 Low 5-15 [facility] Comment on above: Performed By: #### L 500.4100, L500.2500, L100.0500 ####[facility] [address] [place], [address] GFR/1.73 sq M.predicted among non-blacks MDRD (S/P/Bld) [Vol rate/Area] 41 mL/min/{1.73_m2} Low >60 [facility] Comment on above: Result Comment: mL/m in/1.73m2 CKD-EPI Creatinine Equation (2020) Performed By: #### L 500.4100, L500.2500, L100.0500 ####[facility] [address] [place], [address] Glucose [Mass/Vol] 105 mg/dL High 70-99 [facility] Comment on above: Performed By: #### L 500.4100, L500.2500, L100.0500 ####[facility] [address] [place], [address] Potassium [Moles/Vol] 4.4 mmol/L Normal 3.3-5.1 [facility] Comment on above: Performed By: #### L 500.4100, L500.2500, L100.0500 ####[facility] [address] [place], [address] Sodium [Moles/Vol] 123 mmol/L Low 133-145 [facility] Comment on above: Performed By: #### L 500.4100, L500.2500, L100.0500 ####[facility] [address] [place], [address] Urea nitrogen [Mass/Vol] 41 mg/dL High 4-19 [facility] Comment on above: Performed By: #### L 500.4100, L500.2500, L100.0500 ####[facility] [address] [place], [address] Bedside Glucoseon 04-19-2025 FINGERSTICK GLU 108 mg/dL High 74-106 [facility] Comment on above: Result Comment: ROSA ISELA GEMENT OF PATIENT CARE PER NURSING PROTOCOL Performed By: #### L 501.080 ####[facility] [address] [place], [address] Blood cultureOrdered By: Aminata Pierson on 04-19-2025 Bacteria identified Cx Nom (Bld) No growth in 5 days. [facility] Bacteria identified Cx Nom (Bld) No growth in 5 days. [facility] Bacteria identified Cx Nom (Bld) No growth in 5 days. [facility] Bacteria identified Cx Nom (Bld) No growth in 5 days. [facility] CBC W/Diff, Automatedon 10- Absolute Lymph 1.28 X10 3/uL Normal 0.83-4.51 [facility] Comment on above: Performed By: #### L 100.0100, M200.1000, L503.6005, L501.3620 ####[facility] [address] [place], [address] Absolute Neut 6.0 X10 3/uL Normal 2.0-7.7 [facility] Comment on above: Performed By: #### L 100.0100, M200.1000, L503.6005, L501.3620 ####[facility] [address] [place], [address] Basophils/100 WBC (Bld) 0.4 % Normal 0-1 [facility] Comment on above: Performed By: #### L 100.0100, M200.1000, L503.6005, L501.3620 ####[facility] [address] [place], [address] Eosinophils/100 WBC (Bld) 2.7 % Normal 0-5 [facility] Comment on above: Performed By: #### L 100.0100, M200.1000, L503.6005, L501.3620 ####[facility] [address] [place], [address] Erythrocyte distribution width (RBC) [Ratio] 14.5 % Normal 11.6-14.6 [facility] Comment on above: Performed By: #### L 100.0100, M200.1000, L503.6005, L501.3620 ####[facility] [address] [place], [address] Hematocrit (Bld) [Volume fraction] 34.7 % Low 37-47 [facility] Comment on above: Performed By: #### L 100.0100, M200.1000, L503.6005, L501.3620 ####[facility] [address] [place], [address] Hemoglobin (Bld) [Mass/Vol] 11.3 g/dL Low 12.0-15.0 [facility] Comment on above: Performed By: #### L 100.0100, M200.1000, L503.6005, L501.3620 ####[facility] [address] [place], [address] IG% 0.900 Normal 0.0-0.9 [facility] Comment on above: Result Comment: IG% - Immature Granulocytes (promyelocytes, myelocytes andmetamyelocytes) > 1% indicates that a LEFT SHIFT is Present. Performed By: #### L 100.0100, M200.1000, L503.6005, L501.3620 ####[facility] [address] [place], [address] Lymphocytes/100 WBC (Bld) 15.6 % Low 19-41 [facility] Comment on above: Performed By: #### L 100.0100, M200.1000, L503.6005, L501.3620 ####[facility] [address] [place], [address] MCH (RBC) [Entitic mass] 29.7 pg Normal 27.0-32.0 [facility] Comment on above: Performed By: #### L 100.0100, M200.1000, L503.6005, L501.3620 ####[facility] [address] [place], [address] MCHC (RBC) [Mass/Vol] 32.6 g/dL Normal 32-36 [facility] Comment on above: Performed By: #### L 100.0100, M200.1000, L503.6005, L501.3620 ####[facility] [address] [place], [address] MCV (RBC) [Entitic vol] 91.1 fL Normal 81-99 [facility] Comment on above: Performed By: #### L 100.0100, M200.1000, L503.6005, L501.3620 ####[facility] [address] [place], [address] Monocytes/100 WBC (Bld) 7.9 % Normal 0-10 [facility] Comment on above: Performed By: #### L 100.0100, M200.1000, L503.6005, L501.3620 ####[facility] [address] [place], [address] Neutrophils/100 WBC (Bld) 72.5 % High 47-70 [facility] Comment on above: Performed By: #### L 100.0100, M200.1000, L503.6005, L501.3620 ####[facility] [address] [place], [address] Nucleated RBC (Bld) [#/Vol] 0 10*3/uL Normal 0-5 [facility] Comment on above: Performed By: #### L 100.0100, M200.1000, L503.6005, L501.3620 ####[facility] [address] [place], [address] Platelet mean volume (Bld) [Entitic vol] 10.7 fL Normal 6.2-12.0 [facility] Comment on above: Performed By: #### L 100.0100, M200.1000, L503.6005, L501.3620 ####[facility] [address] [place], [address] Platelets (Bld) [#/Vol] 121 10*3/uL Low 150-450 [facility] Comment on above: Performed By: #### L 100.0100, M200.1000, L503.6005, L501.3620 ####[facility] [address] [place], [address] RBC (Bld) [#/Vol] 3.81 10*6/uL Low 4.2-5.4 [facility] Comment on above: Performed By: #### L 100.0100, M200.1000, L503.6005, L501.3620 ####[facility] [address] [place], [address] RDW SD 48.4 fl High 35.1-43.9 [facility] Comment on above: Performed By: #### L 100.0100, M200.1000, L503.6005, L501.3620 ####[facility] [address] [place], [address] WBC (Bld) [#/Vol] 8.2 10*3/uL Normal 4.4-11.0 [facility] Comment on above: Performed By: #### L 100.0100, M200.1000, L503.6005, L501.3620 ####[facility] [address] [place], [address] CBC-Complete Blood Cnt No Di ffon 04-19-2025 Erythrocyte distribution width (RBC) [Ratio] 14.3 % Normal 11.6-14.6 [facility] Comment on above: Performed By: #### L 500.4100, L500.2500, L100.0500 ####[facility] [address] [place], [address] Hematocrit (Bld) [Volume fraction] 36.7 % Low 37-47 [facility] Comment on above: Performed By: #### L 500.4100, L500.2500, L100.0500 ####[facility] [address] [place], [address] Hemoglobin (Bld) [Mass/Vol] 12.1 g/dL Normal 12.0-15.0 [facility] Comment on above: Performed By: #### L 500.4100, L500.2500, L100.0500 ####[facility] [address] [place], [address] MCH (RBC) [Entitic mass] 29.4 pg Normal 27.0-32.0 [facility] Comment on above: Performed By: #### L 500.4100, L500.2500, L100.0500 ####[facility] [address] [place], [address] MCHC (RBC) [Mass/Vol] 33.0 g/dL Normal 32-36 [facility] Comment on above: Performed By: #### L 500.4100, L500.2500, L100.0500 ####[facility] [address] [place], [address] MCV (RBC) [Entitic vol] 89.3 fL Normal 81-99 [facility] Comment on above: Performed By: #### L 500.4100, L500.2500, L100.0500 ####[facility] [address] [place], [address] Platelet mean volume (Bld) [Entitic vol] 10.6 fL Normal 6.2-12.0 [facility] Comment on above: Performed By: #### L 500.4100, L500.2500, L100.0500 ####[facility] [address] [place], [address] Platelets (Bld) [#/Vol] 129 10*3/uL Low 150-450 [facility] Comment on above: Performed By: #### L 500.4100, L500.2500, L100.0500 ####[facility] [address] [place], [address] RBC (Bld) [#/Vol] 4.11 10*6/uL Low 4.2-5.4 [facility] Comment on above: Performed By: #### L 500.4100, L500.2500, L100.0500 ####[facility] [address] [place], [address] RDW SD 47.1 fl High 35.1-43.9 [facility] Comment on above: Performed By: #### L 500.4100, L500.2500, L100.0500 ####[facility] [address] [place], [address] WBC (Bld) [#/Vol] 7.7 10*3/uL Normal 4.4-11.0 [facility] Comment on above: Performed By: #### L 500.4100, L500.2500, L100.0500 ####[facility] [address] [place], [address] CO2 (BldV) [Moles/Vol]Ordere d By: Garfield Pierson on 04-19-2025 CO2 [Moles/Vol] 34 mmol/L High 23-33 [facility] CPK Total, Creatine Kinaseon 04-19-2025 CPK TOTAL 65 U/L Normal 24-195 [facility] Comment on above: Performed By: #### L 100.0100, M200.1000, L503.6005, L501.3620 ####[facility] [address] 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 Normal [facility] Glucose measurement at [facility] deOrdered By: Jermaine Simms on 04-19-2025 Glucose [Mass/Vol] 108 mg/dL High 74-106 [facility] Influenza virus A and B and SARS-CoV-2 (COVID-19) and Respiratory syncytial virus RNAOrdered By: Garfield Pierson on 04-19-2025 SARS-CoV-2 (COVID-19) RNA RANJIT+probe Ql (Unsp spec) [facility] SARS-CoV-2 (COVID-19) RNA RANJIT+probe Ql (Unsp spec) [facility] L509.6001on 04-19-2025 CORTISOL 18.40 ug/dL Normal 6.02-18.40 [facility] Comment on above: Performed By: #### L 509.6001 ####[facility] [address] [place], [address] LDL calc ser/plasOrdered By: Jermaine Simms on 04-19-2025 Cholesterol in LDL [Mass/Vol] 113 mg/dL [facility] Lactic Acidon 04-19-2025 Lactate [Moles/Vol] 1.3 mmol/L Normal 0.0-2.0 [facility] Comment on above: Order Comment: Y Performed By: #### L 100.0100, M200.1000, L503.6005, L501.3620 ####[facility] [address] [place], [address] Lipid Profileon 04-19-2025 CHOL:HDL 2.89 Normal [facility] Comment on above: Performed By: #### L 500.4100, L500.2500, L100.0500 ####[facility] [address] [place], [address] Cholesterol [Mass/Vol] 206 mg/dL High <=200 [facility] Comment on above: Result Comment: Chol esterol level, Desirable <200 mg/dLBorderline high cholesterol 200-239 mg/dLHigh cholesterol >=240 mg/dLRecommendations of the NCEP Adult Treatment Panel for thefollowing risk-cutoff thresholds for the [place] Americanpulation. Performed By: #### L 500.4100, L500.2500, L100.0500 ####[facility] [address] [place], [address] Cholesterol in HDL [Mass/Vol] 71 mg/dL Normal [facility] Comment on above: Result Comment: Aliya onal Cholesterol Education Program (NCEP) guidelines:<40 mg/dL: Low HDL-cholesterol (major risk factor for CHD)>= 60 mg/dL: High HDL-cholesterol (negative risk factor forCHD)HDL-cholesterol is affected by a number of factors, e.g.smoking, exercise, hormones, sex and age. Performed By: #### L 500.4100, L500.2500, L100.0500 ####[facility] [address] [place], [address] Cholesterol in LDL [Mass/Vol] 113 mg/dL Normal [facility] Comment on above: Result Comment: Bord fbxlvs=580-470 mg/dL Higher Ptqi=571 mg/dL or greaterSampson Equation 2020 for LDL-C Performed By: #### L 500.4100, L500.2500, L100.0500 ####[facility] [address] [place], [address] Cholesterol in VLDL [Mass/Vol] 25 mg/dL Normal 5-40 [facility] Comment on above: Performed By: #### L 500.4100, L500.2500, L100.0500 ####[facility] [address] [place], [address] Triglyceride [Mass/Vol] 125 mg/dL Normal [facility] Comment on above: Result Comment: The drugs N-Acetylcysteine and Metamizole may falselydepress this assay.Normal range: <150 mg/dLBorderline High: 150-199 mg/dLHigh: 200-499 mg/dLVery High: >500 mg/dL Performed By: #### L 500.4100, L500.2500, L100.0500 ####[facility] [address] [place], [address] M R Staph Aureus DNA by PCRo n 04-19-2025 MRSA DNA ASSAY Normal Negative [facility] Comment on above: Result Comment: DUPL ICATE ORDER Performed By: #### M 300.4500, M100.2200, M8200.1000, M100.678, L8200.1000, M300.4600, L400.0001 ####[facility] [address] [place], [address] PROBE CHECK Normal [facility] Comment on above: Result Comment: DUPL ICATE ORDER Performed By: #### M 300.4500, M100.2200, M8200.1000, M100.678, L8200.1000, M300.4600, L400.0001 ####[facility] [address] [place], [place], [phone] Normal [facility] Comment on above: Result Comment: DUPL ICATE ORDER Performed By: #### M 300.4500, M100.2200, M8200.1000, M100.678, L8200.1000, M300.4600, L400.0001 ####[facility] [address] [place], [address] M100.678on 04-19-2025 M100.678 SARS-CoV-2 (COVID 19 ) Negative INFLUENZA A Negative INFLUENZA B Negative RSV PCR Negative Normal [facility] Comment on above: Performed By: #### M 300.4500, M100.2200, M8200.1000, M100.678, L8200.1000, M300.4600, L400.0001 ####[facility] [address] [facility] [place], [place], [phone] M8200.1000on 04-19-2025 M8200.1000 Normal Reference Ran ge = Negative MRSA DNA Nose Ql RANJIT+probe GeneXpert Instrument, PCR method MRSA PCR MRSA NEGATIVE Normal [facility] Comment on above: Performed By: #### M 300.4500, M100.2200, M8200.1000, M100.678, L8200.1000, M300.4600, L400.0001 ####[facility] [address] [place], [place], [phone] Nasal methicillin resistant Staphylococcus aureus (MRSA) DNA detection by PCROrdered By: Garfield Pierson on 04-19-2025 MRSA DNA RANJIT+probe Ql (Nose) [facility] MRSA DNA RANJIT+probe Ql (Nose) [facility] No Panel InformationOrdered By: Garfield Pierson on 04-19-2025 MARICRUZ [facility] Not entered [facility] Cannula [facility] Osmolality, Serumon 04-19-20 25 OSMOLALITY,SER 279 mOsm/KG Low 280-301 [facility] Comment on above: Performed By: #### L 501.7300 ####[facility] [address] [place], [address] Serum or plasma cholesterol in HDL measurement (mass/volume)Ordered By: Jermaine Simms on 04-19-2025 Cholesterol in HDL [Mass/Vol] 71 mg/dL >40 [facility] Serum or plasma cholesterol measurement (mass/volume)Ordered By: Jermaine Simms on 04-19-2025 Cholesterol [Mass/Vol] 206 mg/dL High <201 [facility] Serum or plasma cortisol bubba surement (mass/volume)Ordered By: Jermaine Simms on 04-19-2025 Cortisol [Mass/Vol] 18.40 ug/dL 6.02-18.40 [facility] Serum or plasma creatine kin ase activityOrdered By: Garfield Pierson on 04-19-2025 CK [Catalytic activity/Vol] 65 U/L 24-195 [facility] Venous Blood Gason 5 Blood Gas Type MARICRUZ [facility] Comment on above: Performed By: #### L 9000.0810 ####[facility] [address] [place], [address] CO2 [Moles/Vol] 34 mmol/L High 23-33 [facility] Comment on above: Performed By: #### L 9000.0810 ####[facility] [address] [place], [address] FI02 2.0 Normal [facility] Comment on above: Performed By: #### L 9000.0810 ####[facility] [address] [place], [address] HCO3 (Bld) [Moles/Vol] 33 mmol/L High 22-26 [facility] Comment on above: Performed By: #### L 9000.0810 ####[facility] [address] [place], [address] O2 Delivery Dev Cannula Normal [facility] Comment on above: Performed By: #### L 9000.0810 ####[facility] [address] [place], [address] SITE Not entered Normal [facility] Comment on above: Performed By: #### L 9000.0810 ####[facility] [address] [place], [address] VBG BE 10 mmol/L High -1.0-3.5 [facility] Comment on above: Performed By: #### L 9000.0810 ####[facility] [address] [place], [address] VBG pCO2 44.6 mmHg Normal 41-51 [facility] Comment on above: Performed By: #### L 9000.0810 ####[facility] [address] [place], [address] VBG pH 7.48 High 7.32-7.42 [facility] Comment on above: Performed By: #### L 9000.0810 ####[facility] [address] [place], [address] VBG PO2 133 mmHg High 25-40 [facility] Comment on above: Performed By: #### L 9000.0810 ####[facility] [address] [place], [address] VBG SO2 99 High 50-70 [facility] Comment on above: Performed By: #### L 9000.0810 ####[facility] [address] [place], [address] Venous blood base excess bubba surementOrdered By: Garfield Pierson on 04-19-2025 Base excess Calc (BldV) [Moles/Vol] 10 mmol/L High -1.0-3.5 [facility] Venous blood bicarbonate bubba surementOrdered By: Garfield Pierson on 04-19-2025 HCO3 (Bld) [Moles/Vol] 33 mmol/L High 22-26 [facility] Venous blood pH measurementO rdered By: Garfield Pierson on 04-19-2025 pH (BldV) 7.48 [pH] High 7.32-7.42 [facility] Venous blood partial pressur e of carbon dioxide measurementOrdered By: Garfield Pierson on 04-19-2025 CO2 (BldV) [Partial pressure] 44.6 mm[Hg] 41-51 [facility] Venous blood partial pressur e of oxygen measurementOrdered By: Garfield Pierson on 04-19-2025 Oxygen (BldV) [Partial pressure] 133 mm[Hg] High 25-40 [facility] Bilirubin, totalOrdered By: Deion Levy on 04-18-2025 Bilirubin [Mass/Vol] 0.41 mg/dL 0.00-1.30 [facility] CBC W/Diff, Automatedon 04-02 Absolute Lymph 1.09 X10 3/uL Normal 0.83-4.51 [facility] Comment on above: Performed By: #### L 100.0100, L500.4050 ####[facility] [address] [place], [address] Absolute Neut 7.8 X10 3/uL High 2.0-7.7 [facility] Comment on above: Performed By: #### L 100.0100, L500.4050 ####[facility] [address] [place], [address] Basophils/100 WBC (Bld) 0.2 % Normal 0-1 [facility] Comment on above: Performed By: #### L 100.0100, L500.4050 ####[facility] [address] [place], [address] Eosinophils/100 WBC (Bld) 1.6 % Normal 0-5 [facility] Comment on above: Performed By: #### L 100.0100, L500.4050 ####[facility] [address] [place], [address] Erythrocyte distribution width (RBC) [Ratio] 13.9 % Normal 11.6-14.6 [facility] Comment on above: Performed By: #### L 100.0100, L500.4050 ####[facility] [address] [place], [address] Hematocrit (Bld) [Volume fraction] 40.0 % Normal 37-47 [facility] Comment on above: Performed By: #### L 100.0100, L500.4050 ####[facility] [address] [place], [address] Hemoglobin (Bld) [Mass/Vol] 13.1 g/dL Normal 12.0-15.0 [facility] Comment on above: Performed By: #### L 100.0100, L500.4050 ####[facility] [address] [place], [address] IG% 0.600 Normal 0.0-0.9 [facility] Comment on above: Result Comment: IG% - Immature Granulocytes (promyelocytes, myelocytes andmetamyelocytes) > 1% indicates that a LEFT SHIFT is Present. Performed By: #### L 100.0100, L500.4050 ####[facility] [address] [place], [address] Lymphocytes/100 WBC (Bld) 10.9 % Low 19-41 [facility] Comment on above: Performed By: #### L 100.0100, L500.4050 ####[facility] [address] [place], [address] MCH (RBC) [Entitic mass] 29.2 pg Normal 27.0-32.0 [facility] Comment on above: Performed By: #### L 100.0100, L500.4050 ####[facility] [address] [place], [address] MCHC (RBC) [Mass/Vol] 32.8 g/dL Normal 32-36 [facility] Comment on above: Performed By: #### L 100.0100, L500.4050 ####[facility] [address] [place], [address] MCV (RBC) [Entitic vol] 89.1 fL Normal 81-99 [facility] Comment on above: Performed By: #### L 100.0100, L500.4050 ####[facility] [address] [place], [address] Monocytes/100 WBC (Bld) 8.9 % Normal 0-10 [facility] Comment on above: Performed By: #### L 100.0100, L500.4050 ####[facility] [address] [place], [address] Neutrophils/100 WBC (Bld) 77.8 % High 47-70 [facility] Comment on above: Performed By: #### L 100.0100, L500.4050 ####[facility] [address] [place], [address] Nucleated RBC (Bld) [#/Vol] 0 10*3/uL Normal 0-5 [facility] Comment on above: Performed By: #### L 100.0100, L500.4050 ####[facility] [address] [place], [address] Platelet mean volume (Bld) [Entitic vol] 11.7 fL Normal 6.2-12.0 [facility] Comment on above: Performed By: #### L 100.0100, L500.4050 ####[facility] [address] [place], [address] Platelets (Bld) [#/Vol] 160 10*3/uL Normal 150-450 [facility] Comment on above: Performed By: #### L 100.0100, L500.4050 ####[facility] [address] [place], [address] RBC (Bld) [#/Vol] 4.49 10*6/uL Normal 4.2-5.4 [facility] Comment on above: Performed By: #### L 100.0100, L500.4050 ####[facility] [address] [place], [address] RDW SD 45.1 fl High 35.1-43.9 [facility] Comment on above: Performed By: #### L 100.0100, L500.4050 ####[facility] [address] [place], [address] WBC (Bld) [#/Vol] 10.0 10*3/uL Normal 4.4-11.0 [facility] Comment on above: Performed By: #### L 100.0100, L500.4050 ####[facility] [address] [place], [address] Comprehensive Metabolic Prof [facility] 04-18-2025 Albumin [Mass/Vol] 3.7 g/dL Normal 3.4-4.8 [facility] Comment on above: Performed By: #### L 100.0100, L500.4050 ####[facility] [address] [place], [address] Albumin/Globulin [Mass ratio] 1.2 {ratio} Normal 0.9-2.4 [facility] Comment on above: Performed By: #### L 100.0100, L500.4050 ####[facility] [address] [place], [address] ALK PHOS 123 U/L High 35-104 [facility] Comment on above: Performed By: #### L 100.0100, L500.4050 ####[facility] [address] [place], [address] ALT [Catalytic activity/Vol] 32 U/L Normal <=34 [facility] Comment on above: Performed By: #### L 100.0100, L500.4050 ####[facility] [address] [place], [address] AST [Catalytic activity/Vol] 50 U/L High <=31 [facility] Comment on above: Result Comment: Hemo lysis present, Results??could be affected.?? Performed By: #### L 100.0100, L500.4050 ####[facility] [address] [place], [address] Bilirubin [Mass/Vol] 0.41 mg/dL Normal 0.00-1.30 [facility] Comment on above: Performed By: #### L 100.0100, L500.4050 ####[facility] [address] [place], [address] BUN/CRE 40.9 RATIO High 10-20 [facility] Comment on above: Performed By: #### L 100.0100, L500.4050 ####[facility] [address] [place], [address] Calcium [Mass/Vol] 9.7 mg/dL Normal 7.6-11.0 [facility] Comment on above: Performed By: #### L 100.0100, L500.4050 ####[facility] [address] [place], [address] Chloride [Moles/Vol] 73 mmol/L Invalid Interpretation Code 98-108 [facility] Comment on above: Result Comment: Crit ical Result(s) Called at: 1613 by:??PIERRE YANG Results read back by same. Performed By: #### L 100.0100, L500.4050 ####[facility] [address] [place], [address] CO2 [Moles/Vol] 42.5 mmol/L High 21.0-32.0 [facility] Comment on above: Performed By: #### L 100.0100, L500.4050 ####[facility] [address] [place], [address] Creatinine [Mass/Vol] 1.30 mg/dL High 0.70-1.20 [facility] Comment on above: Performed By: #### L 100.0100, L500.4050 ####[facility] [address] [place], [address] ECRCL 46.24 ml/min Low 50-250 [facility] Comment on above: Performed By: #### L 100.0100, L500.4050 ####[facility] [address] [place], [address] GAP 6 Normal 5-15 [facility] Comment on above: Performed By: #### L 100.0100, L500.4050 ####[facility] [address] [place], [address] GFR/1.73 sq M.predicted among non-blacks MDRD (S/P/Bld) [Vol rate/Area] 43 mL/min/{1.73_m2} Low >60 [facility] Comment on above: Result Comment: mL/m in/1.73m2 CKD-EPI Creatinine Equation (2020) Performed By: #### L 100.0100, L500.4050 ####[facility] [address] [place], [address] Globulin (S) [Mass/Vol] 3.0 g/dL Normal 2.2-4.2 [facility] Comment on above: Performed By: #### L 100.0100, L500.4050 ####[facility] [address] [place], [address] Glucose [Mass/Vol] 102 mg/dL High 70-99 [facility] Comment on above: Performed By: #### L 100.0100, L500.4050 ####[facility] [address] [place], [address] Potassium [Moles/Vol] 5.4 mmol/L High 3.3-5.1 [facility] Comment on above: Result Comment: Hemo lysis present, Results??could be affected.?? Performed By: #### L 100.0100, L500.4050 ####[facility] [address] [place], [address] Sodium [Moles/Vol] 121 mmol/L Low 133-145 [facility] Comment on above: Performed By: #### L 100.0100, L500.4050 ####[facility] [address] [place], [address] T PROT 6.6 g/dL Normal 5.9-8.4 [facility] Comment on above: Performed By: #### L 100.0100, L500.4050 ####[facility] [address] [place], [address] Urea nitrogen [Mass/Vol] 53 mg/dL High 4-19 [facility] Comment on above: Performed By: #### L 100.0100, L500.4050 ####[facility] [address] [place], [address] Emergency Department Summary on 04-18-2025 Emergency Department Summary Normal [facility] H AND P Exam - Hospitaliston 04-18-2025 H&P Exam - Hospitalist Normal [facility] No Panel InformationOrdered By: Deion Levy on 04-18-2025 50 U/L High <32 [facility] Osmolality, Serumon 04-18-20 25 OSMOLALITY,SER 310 mOsm/KG High 280-301 [facility] Comment on above: Order Comment: Comme nts: ok to add on Performed By: #### L 501.7300 ####[facility] [address] [place], [address] Serum globulin measurementOr dered By: Deion Levy on 04-18-2025 Globulin (S) [Mass/Vol] 3.0 g/dL 2.2-4.2 [facility] Serum or plasma alanine gao otransferase (ALT) measurementOrdered By: [facility]-2025 ALT [Catalytic activity/Vol] 32 U/L <35 [facility] Serum or plasma albumin lisa urement (mass/volume)Ordered By: [facility] on 04-18-2025 Albumin [Mass/Vol] 3.7 g/dL 3.4-4.8 [facility] Serum or plasma albumin/glob ulin mass ratioOrdered By: [facility] on 04-18-2025 Albumin/Globulin [Mass ratio] 1.2 {ratio} 0.9-2.4 [facility] Serum or plasma alkaline bee sphatase measurementOrdered By: [facility] on 04-18-2025 ALP [Catalytic activity/Vol] 123 U/L High 35-104 [facility] Total proteinOrdered By: [facility] on 04-18-2025 Protein [Mass/Vol] 6.6 g/dL 5.9-8.4 [facility] Comprehensive Metabolic Prof ilon 04-17-2025 Chloride [Moles/Vol] 74 mmol/L Invalid Interpretation Code 98-108 [facility] Comment on above: Order Comment: Order Date: 04/10/25Order Info: 0786-1 - CMPadd on lab Result Comment: Crit ical Result(s) Called at: 0810 04/17/25 by:RASHAWN???Results read back by same. AMENDED REPORT 04/17/25 0811 CL previously reported as: 74 *L mmol/LCritical Result(s) Called at: by:??Results read back bysame. Performed By: #### L 501.7300, L500.4050 ####[facility] [address] [place], [place], [address] Anion gap in Serum or Plasma Ordered By: Kamar Grimes on 04-16-2025 Anion gap [Moles/Vol] 7 mmol/L 11-14 [facility] BUN/creatinine ratioOrdered By: Kamar Grimes on 04-16-2025 Urea nitrogen/Creatinine [Mass ratio] 42.5 mg/mg High 04-21 [facility] Bilirubin, totalOrdered By: Kamar Grimes on 04-16-2025 Bilirubin [Mass/Vol] 0.40 mg/dL 0.00-1.30 [facility] Carbon dioxide, total [Moles /volume] in Central venous bloodOrdered By: Kamar Grimes on 04-16-2025 CO2 [Moles/Vol] 44.0 mmol/L High 21.0-32.0 [facility] Cardiology Visit Reporton Cardiology Visit Report Normal [facility] Chloride assayOrdered By: Jennifer Grimes on 04-16-2025 Chloride [Moles/Vol] 74 mmol/L Critically low 98-108 [facility] Glomerular filtration rate ( GFR) estimation/1.73 sq m using serum, plasma, or whole bOrdered By: Kamar Grimes on 04-16-2025 GFR/1.73 sq M.predicted among non-blacks MDRD (S/P/Bld) [Vol rate/Area] 27 mL/min/{1.73_m2} Low >60 [facility] No Panel InformationOrdered By: Kamar Grimes on 04-16-2025 45 U/L High <32 [facility] Osmolality, Serumon 04-16-20 25 OSMOLALITY,SER 300 mOsm/KG Normal 280-301 [facility] Comment on above: Order Comment: Order Date: 04/10/25Order Info: 2692-2 - OS Performed By: #### L 501.7300, L500.4050 ####[facility] [address] [place], [place], [address] Potassium measurement (mass/ volume)Ordered By: Kamar Grimes on 04-16-2025 Potassium (Unsp spec) [Mass/Vol] 5.1 mmol/L 3.3-5.1 [facility] Serum creatinine measurement (mass/volume)Ordered By: Kamar Grimes on 04-16-2025 Creatinine [Mass/Vol] 1.91 mg/dL High 0.70-1.20 [facility] Serum globulin measurementOr dered By: Kamar Grimes on 04-16-2025 Globulin (S) [Mass/Vol] 3.0 g/dL 2.2-4.2 [facility] Serum glucose measurement (m ass/volume)Ordered By: Kamar Grimes on 04-16-2025 Glucose [Mass/Vol] 108 mg/dL High 70-99 [facility] Serum or plasma alanine gao otransferase (ALT) measurementOrdered By: Kamar Grimes on 04-16-2025 ALT [Catalytic activity/Vol] 29 U/L <35 [facility] Serum or plasma albumin lisa urement (mass/volume)Ordered By: Kamar Grimes on 04-16-2025 Albumin [Mass/Vol] 3.9 g/dL 3.4-4.8 [facility] Serum or plasma albumin/glob ulin mass ratioOrdered By: Kamar Grimes on 04-16-2025 Albumin/Globulin [Mass ratio] 1.3 {ratio} 0.9-2.4 [facility] Serum or plasma alkaline bee sphatase measurementOrdered By: Kamar Grimes on 04-16-2025 ALP [Catalytic activity/Vol] 140 U/L High 35-104 [facility] Serum or plasma calcium lisa urement (mass/volume)Ordered By: Kamar Grimes on 04-16-2025 Calcium [Mass/Vol] 9.8 mg/dL 7.6-11.0 [facility] Serum or plasma urea nitroge n measurement (mass/volume)Ordered By: Kamar Grimes on 04-16-2025 Urea nitrogen [Mass/Vol] 81 mg/dL High 4-19 [facility] Sodium levelOrdered By: Kamar Grimes on 04-16-2025 Sodium [Moles/Vol] 125 mmol/L Low 133-145 [facility] Total proteinOrdered By: Esmer Grimes on 04-16-2025 Protein [Mass/Vol] 6.9 g/dL 5.9-8.4 [facility] Absolute lymphocyte countOrd ered By: Kamar Grimes on 04-09-2025 Lymphocytes Auto (Unsp spec) [#/Vol] 1.43 10*3/uL 0.83-4.51 [facility] Anion gap in Serum or Plasma Ordered By: Kamar Grimes on 04-09-2025 Anion gap [Moles/Vol] 11 mmol/L 5-15 [facility] Automated lymphocyte count a s percentage of total leukocytesOrdered By: Kamar Grimes on 04-09-2025 Lymphocytes/100 WBC Auto (Unsp spec) 13.0 % Low 19-41 [facility] BUN/creatinine ratioOrdered By: Kamar Grimes on 04-09-2025 Urea nitrogen/Creatinine [Mass ratio] 29.4 mg/mg High 10- [facility] Basic Metabolic Profile (BMP )on 04-09-2025 BUN Normal 4-19 [facility] Comment on above: Order Comment: Order Date: 03/31/25Order Info: 06-1 - BMP Result Comment: DUPL ICATE-CMP ORDERED Performed By: #### L 500.2500 ####[facility] [address] [place], [address] BUN/CRE Normal 10- [facility] Comment on above: Order Comment: Order Date: 03/31/25Order Info: 0667-1 - BMP Result Comment: DUPL ICATE-CMP ORDERED Performed By: #### L 500.2500 ####[facility] [address] [place], [address] Calcium Normal 7.6-11.0 [facility] Comment on above: Order Comment: Order Date: 03/31/25Order Info: 0667-1 - BMP Result Comment: DUPL ICATE-CMP ORDERED Performed By: #### L 500.2500 ####[facility] [address] [place], [address] CL Normal 98-108 [facility] Comment on above: Order Comment: Order Date: 03/31/25Order Info: 0667-1 - BMP Result Comment: DUPL ICATE-CMP ORDERED Performed By: #### L 500.2500 ####[facility] [address] [place], [address] CO2 Normal 21.0-32.0 [facility] Comment on above: Order Comment: Order Date: 03/31/25Order Info: 666- - BMP Result Comment: DUPL ICATE-CMP ORDERED Performed By: #### L 500.2500 ####[facility] [address] [place], [address] CREAT,SERUM Normal 0.70-1.20 [facility] Comment on above: Order Comment: Order Date: 03/31/25Order Info: 666- - BMP Result Comment: DUPL ICATE-CMP ORDERED Performed By: #### L 500.2500 ####[facility] [address] [place], [address] eGFR Normal >60 [facility] Comment on above: Order Comment: Order Date: 03/31/25Order Info: 666- - BMP Result Comment: DUPL ICATE-CMP ORDERED Performed By: #### L 500.2500 ####[facility] [address] [place], [address] GAP Normal 5-15 [facility] Comment on above: Order Comment: Order Date: 03/31/25Order Info: 666- - BMP Result Comment: DUPL ICATE-CMP ORDERED Performed By: #### L 500.2500 ####[facility] [address] [place], [address] GLU Normal 70-99 [facility] Comment on above: Order Comment: Order Date: 03/31/25Order Info: 666- - BMP Result Comment: DUPL ICATE-CMP ORDERED Performed By: #### L 500.2500 ####[facility] [address] [place], [address] Potassium Normal 3.3-5.1 [facility] Comment on above: Order Comment: Order Date: 03/31/25Order Info: 0667-1 - BMP Result Comment: DUPL ICATE-CMP ORDERED Performed By: #### L 500.2500 ####[facility] [address] [place], [address] Basic Metabolic Profile (BMP) Normal 133-145 [facility] Comment on above: Order Comment: Order Date: 03/31/25Order Info: 0667-1 - BMP Result Comment: DUPL ICATE-CMP ORDERED Performed By: #### L 500.2500 ####[facility] [address] [place], [address] Basophil percentageOrdered B y: Kamar Grimes on 04-09-2025 Basophils/100 WBC (Bld) 0.5 % 0-1 [facility] Bilirubin, totalOrdered By: Kamar Grimes on 04-09-2025 Bilirubin [Mass/Vol] 0.47 mg/dL 0.00-1.30 [facility] CBC W/Diff, Automatedon 10-0 Absolute Lymph 1.43 X10 3/uL Normal 0.83-4.51 [facility] Comment on above: Order Comment: Order Date: 04/09/25Order Info: 0184-1 - CBCD Performed By: #### L 100.0100, L500.4050 ####[facility] [address] [place], [address] Absolute Neut 8.3 X10 3/uL High 2.0-7.7 [facility] Comment on above: Order Comment: Order Date: 04/09/25Order Info: 0184-1 - CBCD Performed By: #### L 100.0100, L500.4050 ####[facility] [address] [place], [address] Basophils/100 WBC (Bld) 0.5 % Normal 0-1 [facility] Comment on above: Order Comment: Order Date: 04/09/25Order Info: 0184-1 - CBCD Performed By: #### L 100.0100, L500.4050 ####[facility] [address] [place], [address] Eosinophils/100 WBC (Bld) 1.0 % Normal 0-5 [facility] Comment on above: Order Comment: Order Date: 04/09/25Order Info: 0184-1 - CBCD Performed By: #### L 100.0100, L500.4050 ####[facility] [address] [place], [address] Erythrocyte distribution width (RBC) [Ratio] 13.7 % Normal 11.6-14.6 [facility] Comment on above: Order Comment: Order Date: 04/09/25Order Info: 0184-1 - CBCD Performed By: #### L 100.0100, L500.4050 ####[facility] [address] [place], [address] Hematocrit (Bld) [Volume fraction] 44.8 % Normal 37-47 [facility] Comment on above: Order Comment: Order Date: 04/09/25Order Info: 0184-1 - CBCD Performed By: #### L 100.0100, L500.4050 ####[facility] [address] [place], [address] Hemoglobin (Bld) [Mass/Vol] 14.5 g/dL Normal 12.0-15.0 [facility] Comment on above: Order Comment: Order Date: 04/09/25Order Info: 0184-1 - CBCD Performed By: #### L 100.0100, L500.4050 ####[facility] [address] [place], [address] IG% 0.800 Normal 0.0-0.9 [facility] Comment on above: Order Comment: Order Date: 04/09/25Order Info: 0184-1 - CBCD Result Comment: IG% - Immature Granulocytes (promyelocytes, myelocytes andmetamyelocytes) > 1% indicates that a LEFT SHIFT is Present. Performed By: #### L 100.0100, L500.4050 ####[facility] [address] [place], [address] Lymphocytes/100 WBC (Bld) 13.0 % Low 19-41 [facility] Comment on above: Order Comment: Order Date: 04/09/25Order Info: 0184-1 - CBCD Performed By: #### L 100.0100, L500.4050 ####[facility] [address] [place], [address] MCH (RBC) [Entitic mass] 29.4 pg Normal 27.0-32.0 [facility] Comment on above: Order Comment: Order Date: 04/09/25Order Info: 0184-1 - CBCD Performed By: #### L 100.0100, L500.4050 ####[facility] [address] [place], [address] MCHC (RBC) [Mass/Vol] 32.4 g/dL Normal 32-36 [facility] Comment on above: Order Comment: Order Date: 04/09/25Order Info: 0184-1 - CBCD Performed By: #### L 100.0100, L500.4050 ####[facility] [address] [place], [address] MCV (RBC) [Entitic vol] 90.7 fL Normal 81-99 [facility] Comment on above: Order Comment: Order Date: 04/09/25Order Info: 0184-1 - CBCD Performed By: #### L 100.0100, L500.4050 ####[facility] [address] [place], [address] Monocytes/100 WBC (Bld) 9.1 % Normal 0-10 [facility] Comment on above: Order Comment: Order Date: 04/09/25Order Info: 0184-1 - CBCD Performed By: #### L 100.0100, L500.4050 ####[facility] [address] [place], [address] Neutrophils/100 WBC (Bld) 75.6 % High 47-70 [facility] Comment on above: Order Comment: Order Date: 04/09/25Order Info: 0184-1 - CBCD Performed By: #### L 100.0100, L500.4050 ####[facility] [address] [place], [address] Nucleated RBC (Bld) [#/Vol] 0 10*3/uL Normal 0-5 [facility] Comment on above: Order Comment: Order Date: 04/09/25Order Info: 0184-1 - CBCD Performed By: #### L 100.0100, L500.4050 ####[facility] [address] [place], [address] Platelet mean volume (Bld) [Entitic vol] 11.1 fL Normal 6.2-12.0 [facility] Comment on above: Order Comment: Order Date: 04/09/25Order Info: 0184-1 - CBCD Performed By: #### L 100.0100, L500.4050 ####[facility] [address] [place], [address] Platelets (Bld) [#/Vol] 261 10*3/uL Normal 150-450 [facility] Comment on above: Order Comment: Order Date: 04/09/25Order Info: 0184-1 - CBCD Performed By: #### L 100.0100, L500.4050 ####[facility] [address] [place], [address] RBC (Bld) [#/Vol] 4.94 10*6/uL Normal 4.2-5.4 [facility] Comment on above: Order Comment: Order Date: 04/09/25Order Info: 0184-1 - CBCD Performed By: #### L 100.0100, L500.4050 ####[facility] [address] [place], [address] RDW SD 45.5 fl High 35.1-43.9 [facility] Comment on above: Order Comment: Order Date: 04/09/25Order Info: 0184-1 - CBCD Performed By: #### L 100.0100, L500.4050 ####[facility] [address] [place], [address] WBC (Bld) [#/Vol] 11.0 10*3/uL Normal 4.4-11.0 [facility] Comment on above: Order Comment: Order Date: 04/09/25Order Info: 0184-1 - CBCD Performed By: #### L 100.0100, L500.4050 ####[facility] [address] [place], [address] Carbon dioxide, total [Moles /volume] in Central venous bloodOrdered By: Kamar Grimes on 04-09-2025 CO2 [Moles/Vol] 46.1 mmol/L Critically high 21.0-32.0 [facility] Chloride assayOrdered By: Jennifer Grimes on 04-09-2025 Chloride [Moles/Vol] 71 mmol/L Critically low 98-108 [facility] Comprehensive Metabolic Prof ilon 04-09-2025 Albumin [Mass/Vol] 4.1 g/dL Normal 3.4-4.8 [facility] Comment on above: Order Comment: Order Date: 04/09/25Order Info: 0786-1 - CMP Performed By: #### L 100.0100, L500.4050 ####[facility] [facility] [address] [place], [address] Albumin/Globulin [Mass ratio] 1.2 {ratio} Normal 0.9-2.4 [facility] Comment on above: Order Comment: Order Date: 04/09/25Order Info: 0786-1 - CMP Performed By: #### L 100.0100, L500.4050 ####[facility] [address] [place], [address] ALK PHOS 161 U/L High 35-104 [facility] Comment on above: Order Comment: Order Date: 04/09/25Order Info: 0786-1 - CMP Performed By: #### L 100.0100, L500.4050 ####[facility] [address] [place], [address] ALT [Catalytic activity/Vol] 25 U/L Normal <=34 [facility] Comment on above: Order Comment: Order Date: 04/09/25Order Info: 0786-1 - CMP Performed By: #### L 100.0100, L500.4050 ####[facility] [address] [place], [address] AST [Catalytic activity/Vol] 39 U/L High <=31 [facility] Comment on above: Order Comment: Order Date: 04/09/25Order Info: 0786-1 - CMP Performed By: #### L 100.0100, L500.4050 ####[facility] [address] [place], [address] Bilirubin [Mass/Vol] 0.47 mg/dL Normal 0.00-1.30 [facility] Comment on above: Order Comment: Order Date: 04/09/25Order Info: 0786-1 - CMP Performed By: #### L 100.0100, L500.4050 ####[facility] [address] [place], [address] BUN/CRE 29.4 RATIO High 10-20 [facility] Comment on above: Order Comment: Order Date: 04/09/25Order Info: 0786-1 - CMP Performed By: #### L 100.0100, L500.4050 ####[facility] [address] [place], [address] Calcium [Mass/Vol] 10.3 mg/dL Normal 7.6-11.0 [facility] Comment on above: Order Comment: Order Date: 04/09/25Order Info: 0786-1 - CMP Performed By: #### L 100.0100, L500.4050 ####[facility] [address] [place], [address] Chloride [Moles/Vol] 71 mmol/L Invalid Interpretation Code 98-108 [facility] Comment on above: Order Comment: Order Date: 04/09/25Order Info: 0786-1 - CMP Result Comment: Crit ical Result(s) Called at: 1932 by:??PIERRE GASPAR TO DR.PAUL MUNIZ Results read back by same. Performed By: #### L 100.0100, L500.4050 ####[facility] [address] [place], [address] CO2 [Moles/Vol] 46.1 mmol/L Invalid Interpretation Code 21.0-32.0 [facility] Comment on above: Order Comment: Order Date: 04/09/25Order Info: 0786-1 - CMP Result Comment: Crit ical Result(s) Called at: 1932 by: PIERRE GASPAR TO DR.PAUL COTE??Results read back by same. Performed By: #### L 100.0100, L500.4050 ####[facility] [address] [place], [address] Creatinine [Mass/Vol] 1.61 mg/dL High 0.70-1.20 [facility] Comment on above: Order Comment: Order Date: 04/09/25Order Info: 0786-1 - CMP Performed By: #### L 100.0100, L500.4050 ####[facility] [address] [place], [address] GAP 11 Normal 5-15 [facility] Comment on above: Order Comment: Order Date: 04/09/25Order Info: 0786-1 - CMP Performed By: #### L 100.0100, L500.4050 ####[facility] [address] [place], [address] GFR/1.73 sq M.predicted among non-blacks MDRD (S/P/Bld) [Vol rate/Area] 33 mL/min/{1.73_m2} Low >60 [facility] Comment on above: Order Comment: Order Date: 04/09/25Order Info: 0786-1 - CMP Result Comment: mL/m in/1.73m2 CKD-EPI Creatinine Equation (2020) Performed By: #### L 100.0100, L500.4050 ####[facility] [address] [place], [address] Globulin (S) [Mass/Vol] 3.4 g/dL Normal 2.2-4.2 [facility] Comment on above: Order Comment: Order Date: 04/09/25Order Info: 0786-1 - CMP Performed By: #### L 100.0100, L500.4050 ####[facility] [address] [place], [address] Glucose [Mass/Vol] 116 mg/dL High 70-99 [facility] Comment on above: Order Comment: Order Date: 04/09/25Order Info: 0786-1 - CMP Performed By: #### L 100.0100, L500.4050 ####[facility] [address] [place], [address] Potassium [Moles/Vol] 4.6 mmol/L Normal 3.3-5.1 [facility] Comment on above: Order Comment: Order Date: 04/09/25Order Info: 0786-1 - CMP Performed By: #### L 100.0100, L500.4050 ####[facility] [address] [place], [address] Sodium [Moles/Vol] 128 mmol/L Low 133-145 [facility] Comment on above: Order Comment: Order Date: 04/09/25Order Info: 0786-1 - CMP Performed By: #### L 100.0100, L500.4050 ####[facility] [address] [place], [place], [id number] T PROT 7.5 g/dL Normal 5.9-8.4 [facility] Comment on above: Order Comment: Order Date: 04/09/25Order Info: 0786-1 - CMP Performed By: #### L 100.0100, L500.4050 ####[facility] [address] [place], [address] Urea nitrogen [Mass/Vol] 47 mg/dL High 4-19 [facility] Comment on above: Order Comment: Order Date: 04/09/25Order Info: 0786-1 - CMP Performed By: #### L 100.0100, L500.4050 ####[facility] [address] [place], [address] Eosinophil percentageOrdered By: Kamar Grimes on 04-09-2025 Eosinophils/100 WBC (Bld) 1.0 % 0-5 [facility] Erythrocyte distribution wid th ratioOrdered By: Kamar Grimes on 04-09-2025 Erythrocyte distribution width (RBC) [Ratio] 13.7 % 11.6-14.6 [facility] Erythrocyte distribution wid th standard deviationOrdered By: Kamar Grimes on 04-09-2025 Erythrocyte distribution width (RBC) [Ratio] 45.5 fl High 35.1-43.9 [facility] Glomerular filtration rate ( GFR) estimation/1.73 sq m using serum, plasma, or whole bOrdered By: Kamar Grimes on 04-09-2025 GFR/1.73 sq M.predicted among non-blacks MDRD (S/P/Bld) [Vol rate/Area] 33 mL/min/{1.73_m2} Low >60 [facility] Hematocrit Auto (Bld) [Volum e fraction]Ordered By: Kamar Grimes on 04-09-2025 Hematocrit (Bld) [Volume fraction] 44.8 % 37-47 [facility] Hemoglobin measurementOrdere d By: Kamar Grimes on 04-09-2025 Hemoglobin (Bld) [Mass/Vol] 14.5 g/dL 12.0-15.0 [facility] Immature granulocytes/100 WB C Auto (Bld)Ordered By: Kamar Grimes on 04-09-2025 Immature granulocytes/100 WBC (Bld) 0.800 % 0.0-0.9 [facility] MCV (mean corpuscular volume ) determinationOrdered By: Kamar Grimes on 04-09-2025 MCV (RBC) [Entitic vol] 90.7 fL 81-99 [facility] Mean corpuscular hemoglobin (MCH) determinationOrdered By: Kamar Grimes on 04-09-2025 MCH (RBC) [Entitic mass] 29.4 pg 27.0-32.0 [facility] Monocyte percentageOrdered B y: Kamar Grimes on 04-09-2025 Monocytes/100 WBC (Bld) 9.1 % 0-10 [facility] Natriuretic peptide.B prohor mac N-Terminal [Mass/volume] in Serum or PlasmaOrdered By: Kamar Grimes on 04-09-2025 Natriuretic peptide.B prohormone N-Terminal [Mass/Vol] 198 pg/mL <1800 [facility] Neutrophil percentageOrdered By: Kamar Grimes on 04-09-2025 Neutrophils/100 WBC (Bld) 75.6 % High 47-70 [facility] No Panel InformationOrdered By: Kamar Grimes on 04-09-2025 39 U/L High <32 [facility] Platelet countOrdered By: Jennifer Grimes on 04-09-2025 Platelets (Bld) [#/Vol] 261 10*3/uL 150-450 [facility] Potassium measurement (mass/ volume)Ordered By: Kamar Grimes on 04-09-2025 Potassium (Unsp spec) [Mass/Vol] 4.6 mmol/L 3.3-5.1 [facility] Pro- Brain NATRIURETIC PEPTI Rita 04-09-2025 Natriuretic peptide B (Bld) [Mass/Vol] 198 pg/mL Normal <=1800 [facility] Comment on above: Order Comment: Order Date: 04/09/25Order Info: 0786-1 - CMP Result Comment: Hear t Failure Unlikely: < 300 pg/mLHeart Failure Likely< 50 Years: > 450 pg/mL50-75 Years: > 900 pg/mL>75 Years: > 1800 pg/mL Performed By: #### L 503.7505 ####[facility] [address] [place], [address] RBC Auto (Bld) [#/Vol]Ordere d By: Kamar Grimes on 04-09-2025 RBC (Bld) [#/Vol] 4.94 10*6/uL 4.2-5.4 [facility] Serum creatinine measurement (mass/volume)Ordered By: Kamar Grimes on 04-09-2025 Creatinine [Mass/Vol] 1.61 mg/dL High 0.70-1.20 [facility] Serum globulin measurementOr dered By: Kamar Grimes on 04-09-2025 Globulin (S) [Mass/Vol] 3.4 g/dL 2.2-4.2 [facility] Serum glucose measurement (m ass/volume)Ordered By: Kamar Grimes on 04-09-2025 Glucose [Mass/Vol] 116 mg/dL High 70-99 [facility] Serum or plasma alanine gao otransferase (ALT) measurementOrdered By: Kamar Grimes on 04-09-2025 ALT [Catalytic activity/Vol] 25 U/L <35 [facility] Serum or plasma albumin lisa urement (mass/volume)Ordered By: Kamar Grimes on 04-09-2025 Albumin [Mass/Vol] 4.1 g/dL 3.4-4.8 [facility] Serum or plasma albumin/glob ulin mass ratioOrdered By: Kamar Grimes on 04-09-2025 Albumin/Globulin [Mass ratio] 1.2 {ratio} 0.9-2.4 [facility] Serum or plasma alkaline bee sphatase measurementOrdered By: Kamar Grimes on 04-09-2025 ALP [Catalytic activity/Vol] 161 U/L High 35-104 [facility] Serum or plasma calcium lisa urement (mass/volume)Ordered By: Kamar Grimes on 04-09-2025 Calcium [Mass/Vol] 10.3 mg/dL 7.6-11.0 [facility] Serum or plasma urea nitroge n measurement (mass/volume)Ordered By: Kamar Grimes on 04-09-2025 Urea nitrogen [Mass/Vol] 47 mg/dL High 10-19 [facility] Sodium levelOrdered By: Kamar Grimes on 04-09-2025 Sodium [Moles/Vol] 128 mmol/L Low 133-145 [facility] Total proteinOrdered By: Esmer Grimes on 04-09-2025 Protein [Mass/Vol] 7.5 g/dL 5.9-8.4 [facility] White blood cell (WBC) count Ordered By: Kamar Grimes on 04-09-2025 WBC (Bld) [#/Vol] 11.0 10*3/uL 4.4-11.0 [facility] Basic Metabolic Profile (BMP )on 03-27-2025 BUN Normal - [facility] Comment on above: Result Comment: Canc elled via OM: Order cancelled - Patient discharged Performed By: #### L 100.0100, L500.2500 ####[facility] [address] [place], [address] BUN/CRE Normal 10- [facility] Comment on above: Result Comment: Canc elled via OM: Order cancelled - Patient discharged Performed By: #### L 100.0100, L500.2500 ####[facility] [address] [place], [address] Calcium Normal 7.6-11.0 [facility] Comment on above: Result Comment: Canc elled via OM: Order cancelled - Patient discharged Performed By: #### L 100.0100, L500.2500 ####[facility] [address] [place], [address] CL Normal 98-108 [facility] Comment on above: Result Comment: Canc elled via OM: Order cancelled - Patient discharged Performed By: #### L 100.0100, L500.2500 ####[facility] [address] [place], [address] CO2 Normal 21.0-32.0 [facility] Comment on above: Result Comment: Canc elled via OM: Order cancelled - Patient discharged Performed By: #### L 100.0100, L500.2500 ####[facility] [address] [place], [address] CREAT,SERUM Normal 0.70-1.20 [facility] Comment on above: Result Comment: Canc elled via OM: Order cancelled - Patient discharged Performed By: #### L 100.0100, L500.2500 ####[facility] [address] [place], [address] eGFR Normal >60 [facility] Comment on above: Result Comment: Canc elled via OM: Order cancelled - Patient discharged Performed By: #### L 100.0100, L500.2500 ####[facility] [address] [place], [address] GAP Normal 5-15 [facility] Comment on above: Result Comment: Canc elled via OM: Order cancelled - Patient discharged Performed By: #### L 100.0100, L500.2500 ####[facility] [address] [place], [address] GLU Normal 70-99 [facility] Comment on above: Result Comment: Canc elled via OM: Order cancelled - Patient discharged Performed By: #### L 100.0100, L500.2500 ####[facility] [address] [place], [address] Potassium Normal 3.3-5.1 [facility] Comment on above: Result Comment: Canc elled via OM: Order cancelled - Patient discharged Performed By: #### L 100.0100, L500.2500 ####[facility] [address] [place], [address] Basic Metabolic Profile (BMP) Normal 133-145 [facility] Comment on above: Result Comment: Canc elled via OM: Order cancelled - Patient discharged Performed By: #### L 100.0100, L500.2500 ####[facility] [address] [place], [address] CBC W/Diff, Automatedon 09-2 -2024 Absolute Neut Normal 2.0-7.7 [facility] Comment on above: Result Comment: Canc elled via OM: Order cancelled - Patient discharged Performed By: #### L 100.0100, L500.2500 ####[facility] [address] [place], [address] HCT Normal 37-47 [facility] Comment on above: Result Comment: Canc elled via OM: Order cancelled - Patient discharged Performed By: #### L 100.0100, L500.2500 ####[facility] [address] [place], [address] HGB Normal 12.0-15.0 [facility] Comment on above: Result Comment: Canc elled via OM: Order cancelled - Patient discharged Performed By: #### L 100.0100, L500.2500 ####[facility] [address] [place], [address] MCH Normal 27.0-32.0 [facility] Comment on above: Result Comment: Canc elled via OM: Order cancelled - Patient discharged Performed By: #### L 100.0100, L500.2500 ####[facility] [address] [place], [address] MCHC Normal 32-36 [facility] Comment on above: Result Comment: Canc elled via OM: Order cancelled - Patient discharged Performed By: #### L 100.0100, L500.2500 ####[facility] [address] [place], [address] MCV Normal 81-99 [facility] Comment on above: Result Comment: Canc elled via OM: Order cancelled - Patient discharged Performed By: #### L 100.0100, L500.2500 ####[facility] [address] [place], [address] NEUT% Normal 47-70 [facility] Comment on above: Result Comment: Canc elled via OM: Order cancelled - Patient discharged Performed By: #### L 100.0100, L500.2500 ####[facility] [address] [place], [address] PLT Normal 150-450 [facility] Comment on above: Result Comment: Canc elled via OM: Order cancelled - Patient discharged Performed By: #### L 100.0100, L500.2500 ####[facility] [address] [place], [address] RBC Normal 4.2-5.4 [facility] Comment on above: Result Comment: Canc elled via OM: Order cancelled - Patient discharged Performed By: #### L 100.0100, L500.2500 ####[facility] [address] [place], [address] RDW CV Normal 11.6-14.6 [facility] Comment on above: Result Comment: Canc elled via OM: Order cancelled - Patient discharged Performed By: #### L 100.0100, L500.2500 ####[facility] [address] [place], [address] RDW SD Normal 35.1-43.9 [facility] Comment on above: Result Comment: Canc elled via OM: Order cancelled - Patient discharged Performed By: #### L 100.0100, L500.2500 ####[facility] [address] [place], [address] WBC Normal 4.4-11.0 [facility] Comment on above: Result Comment: Canc elled via OM: Order cancelled - Patient discharged Performed By: #### L 100.0100, L500.2500 ####[facility] [address] [place], [address] Absolute lymphocyte countOrd ered By: Otilia Gosscristofer on 03-26-2025 Lymphocytes Auto (Unsp spec) [#/Vol] 0.81 10*3/uL Low 0.83-4.51 [facility] Anion gap in Serum or Plasma Ordered By: Otiliashanon Hernandez on 03-26-2025 Anion gap [Moles/Vol] 7 mmol/L 5-15 [facility] Automated blood erythrocyte countOrdered By: Otiliashanon Hernandez on 03-26-2025 RBC (Bld) [#/Vol] 3.78 10*6/uL Low 4.2-5.4 [facility] Comment on above: Performed By: #### L 500.2500, L100.0100 ####[facility] [address] [place], [address] Automated blood hematocrit ( percentage)Ordered By: Otiliashanon Hernandez on 03-26-2025 Hematocrit (Bld) [Volume fraction] 35.8 % Low 37-47 [facility] Comment on above: Performed By: #### L 500.2500, L100.0100 ####[facility] [address] [place], [address] Automated lymphocyte count a s percentage of total leukocytesOrdered By: Otiliashanon Hernandez on 03-26-2025 Lymphocytes/100 WBC Auto (Unsp spec) 9.6 % Low 19-41 [facility] BUN/creatinine ratioOrdered By: Otiliashanon Hernandez on 03-26-2025 Urea nitrogen/Creatinine [Mass ratio] 26.4 mg/mg High 10-20 [facility] Basic Metabolic Profile (BMP )on 03-26-2025 BUN/CRE 26.4 RATIO High - [facility] Comment on above: Performed By: #### L 500.2500, L100.0100 ####[facility] [address] [place], [address] ECRCL 79.11 ml/min Normal 50-250 [facility] Comment on above: Performed By: #### L 500.2500, L100.0100 ####[facility] [address] [place], [address] GAP 7 Normal 5-15 [facility] Comment on above: Performed By: #### L 500.2500, L100.0100 ####[facility] [address] [place], [address] Potassium [Moles/Vol] 3.9 mmol/L Normal 3.3-5.1 [facility] Comment on above: Performed By: #### L 500.2500, L100.0100 ####[facility] [address] [place], [address] Basophil percentageOrdered B y: Otilia Hernandez on 03-26-2025 Basophils/100 WBC (Bld) 0.2 % Normal 0-1 [facility] Comment on above: Performed By: #### L 500.2500, L100.0100 ####[facility] [address] [place], [address] CBC W/Diff, Automatedon 03-04 Absolute Lymph 0.81 X10 3/uL Low 0.83-4.51 [facility] Comment on above: Performed By: #### L 500.2500, L100.0100 ####[facility] [address] [place], [address] Absolute Neut 6.6 X10 3/uL Normal 2.0-7.7 [facility] Comment on above: Performed By: #### L 500.2500, L100.0100 ####[facility] [address] [place], [address] IG% 0.600 Normal 0.0-0.9 [facility] Comment on above: Result Comment: IG% - Immature Granulocytes (promyelocytes, myelocytes andmetamyelocytes) > 1% indicates that a LEFT SHIFT is Present. Performed By: #### L 500.2500, L100.0100 ####[facility] [address] [place], [address] Lymphocytes/100 WBC (Bld) 9.6 % Low 19-41 [facility] Comment on above: Performed By: #### L 500.2500, L100.0100 ####[facility] [address] [place], [address] MCHC (RBC) [Mass/Vol] 31.0 g/dL Low 32-36 [facility] Comment on above: Performed By: #### L 500.2500, L100.0100 ####[facility] [address] [place], [address] Nucleated RBC (Bld) [#/Vol] 0 10*3/uL Normal 0-5 [facility] Comment on above: Performed By: #### L 500.2500, L100.0100 ####[facility] [address] [place], [address] Platelet mean volume (Bld) [Entitic vol] 9.7 fL Normal 6.2-12.0 [facility] Comment on above: Performed By: #### L 500.2500, L100.0100 ####[facility] [address] [place], [address] RDW SD 48.9 fl High 35.1-43.9 [facility] Comment on above: Performed By: #### L 500.2500, L100.0100 ####[facility] [address] [place], [address] Carbon dioxide, total [Moles /volume] in Central venous bloodOrdered By: Otilia Hernandez on 03-26-2025 CO2 [Moles/Vol] 38.2 mmol/L High 21.0-32.0 [facility] Comment on above: Performed By: #### L 500.2500, L100.0100 ####[facility] [address] [place], [address] Chloride assayOrdered By: Emelina Hernandez on 03-26-2025 Chloride [Moles/Vol] 94 mmol/L Low 98-108 [facility] Comment on above: Performed By: #### L 500.2500, L100.0100 ####[facility] [address] [place], [address] Eosinophil percentageOrdered By: Otilia Hernandez on 03-26-2025 Eosinophils/100 WBC (Bld) 1.5 % Normal 0-5 [facility] Comment on above: Performed By: #### L 500.2500, L100.0100 ####[facility] [address] [place], [address] Erythrocyte distribution wid th ratioOrdered By: Otilia Hernandez on 03-26-2025 Erythrocyte distribution width (RBC) [Ratio] 14.1 % Normal 11.6-14.6 [facility] Comment on above: Performed By: #### L 500.2500, L100.0100 ####[facility] [address] [place], [address] Erythrocyte distribution wid th standard deviationOrdered By: Otilia Hernandez on 03-26-2025 Erythrocyte distribution width (RBC) [Ratio] 48.9 fl High 35.1-43.9 [facility] Glomerular filtration rate ( GFR) estimation/1.73 sq m using serum, plasma, or whole bOrdered By: Otilia Hernandez on 03-26-2025 GFR/1.73 sq M.predicted among non-blacks MDRD (S/P/Bld) [Vol rate/Area] 90 mL/min/{1.73_m2} Normal >60 [facility] Comment on above: Result Comment: mL/m in/1.73m2 CKD-EPI Creatinine Equation (2020) Performed By: #### L 500.2500, L100.0100 ####[facility] [address] [place], [address] Hemoglobin measurementOrdere d By: Otilia Gosscristofer on 03-26-2025 Hemoglobin (Bld) [Mass/Vol] 11.1 g/dL Low 12.0-15.0 [facility] Comment on above: Performed By: #### L 500.2500, L100.0100 ####[facility] [address] [place], [address] Immature granulocytes/100 WB C Auto (Bld)Ordered By: Otiliashanon Hernandez on 03-26-2025 Immature granulocytes/100 WBC (Bld) 0.600 % 0.0-0.9 [facility] MCV (mean corpuscular volume ) determinationOrdered By: Otilia Hernandez on 03-26-2025 MCV (RBC) [Entitic vol] 94.7 fL Normal 81-99 [facility] Comment on above: Performed By: #### L 500.2500, L100.0100 ####[facility] [address] [place], [address] Mean corpuscular hemoglobin (MCH) determinationOrdered By: Otiliashanon Hernandez on 03-26-2025 MCH (RBC) [Entitic mass] 29.4 pg Normal 27.0-32.0 [facility] Comment on above: Performed By: #### L 500.2500, L100.0100 ####[facility] [address] [place], [address] Monocyte percentageOrdered B y: Otilia Hernandez on 03-26-2025 Monocytes/100 WBC (Bld) 10.1 % High 0-10 [facility] Comment on above: Performed By: #### L 500.2500, L100.0100 ####[facility] [address] [place], [address] Neutrophil percentageOrdered By: Otilia Hernandez on 03-26-2025 Neutrophils/100 WBC (Bld) 78.0 % High 47-70 [facility] Comment on above: Performed By: #### L 500.2500, L100.0100 ####[facility] [address] [place], [address] Platelet countOrdered By: Emelina devine David on 03-26-2025 Platelets (Bld) [#/Vol] 169 10*3/uL Normal 150-450 [facility] Comment on above: Performed By: #### L 500.2500, L100.0100 ####[facility] [address] [place], [address] Potassium measurement (mass/ volume)Ordered By: Otiliashanon Hernandez on 03-26-2025 Potassium (Unsp spec) [Mass/Vol] 3.9 mmol/L 3.3-5.1 [facility] Serum creatinine measurement (mass/volume)Ordered By: Otilia Hernandez on 03-26-2025 Creatinine [Mass/Vol] 0.68 mg/dL Low 0.70-1.20 [facility] Comment on above: Performed By: #### L 500.2500, L100.0100 ####[facility] [address] [place], [address] Serum glucose measurement (m ass/volume)Ordered By: Otiliashanon Hernandez on 03-26-2025 Glucose [Mass/Vol] 98 mg/dL Normal 70-99 [facility] Comment on above: Performed By: #### L 500.2500, L100.0100 ####[facility] [address] [place], [address] Serum or plasma calcium lisa urement (mass/volume)Ordered By: Otiliashanon Hernandez on 03-26-2025 Calcium [Mass/Vol] 8.7 mg/dL Normal 7.6-11.0 [facility] Comment on above: Performed By: #### L 500.2500, L100.0100 ####[facility] [address] [place], [address] Serum or plasma urea nitroge n measurement (mass/volume)Ordered By: Otilia Hernandez on 03-26-2025 Urea nitrogen [Mass/Vol] 18 mg/dL Normal 4-19 [facility] Comment on above: Performed By: #### L 500.2500, L100.0100 ####[facility] [address] [place], [address] Sodium levelOrdered By: Otilia Hernandez on 03-26-2025 Sodium [Moles/Vol] 139 mmol/L Normal 133-145 [facility] Comment on above: Performed By: #### L 500.2500, L100.0100 ####[facility] [address] [place], [address] White blood cell (WBC) count Ordered By: Otilia Hernandez on 03-26-2025 WBC (Bld) [#/Vol] 8.5 10*3/uL Normal 4.4-11.0 [facility] Comment on above: Performed By: #### L 500.2500, L100.0100 ####[facility] [address] [place], [address] Basic Metabolic Profile (BMP )on 03-25-2025 BUN/CRE 27.9 RATIO High 10-20 [facility] Comment on above: Performed By: #### L 500.2500, L100.0100 ####[facility] [address] [place], [address] Calcium [Mass/Vol] 8.8 mg/dL Normal 7.6-11.0 [facility] Comment on above: Performed By: #### L 500.2500, L100.0100 ####[facility] [address] [place], [address] Chloride [Moles/Vol] 99 mmol/L Normal 98-108 [facility] Comment on above: Performed By: #### L 500.2500, L100.0100 ####[facility] [address] [place], [address] CO2 [Moles/Vol] 35.9 mmol/L High 21.0-32.0 [facility] Comment on above: Performed By: #### L 500.2500, L100.0100 ####[facility] [address] [place], [address] Creatinine [Mass/Vol] 0.72 mg/dL Normal 0.70-1.20 [facility] Comment on above: Performed By: #### L 500.2500, L100.0100 ####[facility] [address] [place], [address] ECRCL 80.24 ml/min Normal 50-250 [facility] Comment on above: Performed By: #### L 500.2500, L100.0100 ####[facility] [address] [place], [address] GAP 5 Normal 5-15 [facility] Comment on above: Performed By: #### L 500.2500, L100.0100 ####[facility] [address] [place], [address] GFR/1.73 sq M.predicted among non-blacks MDRD (S/P/Bld) [Vol rate/Area] 86 mL/min/{1.73_m2} Normal >60 [facility] Comment on above: Result Comment: mL/m in/1.73m2 CKD-EPI Creatinine Equation (2020) Performed By: #### L 500.2500, L100.0100 ####[facility] [address] [place], [address] Glucose [Mass/Vol] 105 mg/dL High 70-99 [facility] Comment on above: Performed By: #### L 500.2500, L100.0100 ####[facility] [address] [place], [address] Potassium [Moles/Vol] 4.5 mmol/L Normal 3.3-5.1 [facility] Comment on above: Performed By: #### L 500.2500, L100.0100 ####[facility] [address] [place], [address] Sodium [Moles/Vol] 140 mmol/L Normal 133-145 [facility] Comment on above: Performed By: #### L 500.2500, L100.0100 ####[facility] [address] [place], [address] Urea nitrogen [Mass/Vol] 20 mg/dL High 4-19 [facility] Comment on above: Performed By: #### L 500.2500, L100.0100 ####[facility] [address] [place], [address] CBC W/Diff, Automatedon 03-04-2024 Absolute Lymph 0.86 X10 3/uL Normal 0.83-4.51 [facility] Comment on above: Performed By: #### L 500.2500, L100.0100 ####[facility] [address] [place], [address] Absolute Neut 7.2 X10 3/uL Normal 2.0-7.7 [facility] Comment on above: Performed By: #### L 500.2500, L100.0100 ####[facility] [address] [place], [address] Basophils/100 WBC (Bld) 0.2 % Normal 0-1 [facility] Comment on above: Performed By: #### L 500.2500, L100.0100 ####[facility] [address] [place], [address] Eosinophils/100 WBC (Bld) 1.4 % Normal 0-5 [facility] Comment on above: Performed By: #### L 500.2500, L100.0100 ####[facility] [address] [place], [address] Erythrocyte distribution width (RBC) [Ratio] 14.6 % Normal 11.6-14.6 [facility] Comment on above: Performed By: #### L 500.2500, L100.0100 ####[facility] [address] [place], [address] Hematocrit (Bld) [Volume fraction] 36.8 % Low 37-47 [facility] Comment on above: Performed By: #### L 500.2500, L100.0100 ####[facility] [address] [place], [address] Hemoglobin (Bld) [Mass/Vol] 11.3 g/dL Low 12.0-15.0 [facility] Comment on above: Performed By: #### L 500.2500, L100.0100 ####[facility] [address] [place], [address] IG% 0.500 Normal 0.0-0.9 [facility] Comment on above: Result Comment: IG% - Immature Granulocytes (promyelocytes, myelocytes andmetamyelocytes) > 1% indicates that a LEFT SHIFT is Present. Performed By: #### L 500.2500, L100.0100 ####[facility] [address] [place], [address] Lymphocytes/100 WBC (Bld) 9.4 % Low 19-41 [facility] Comment on above: Performed By: #### L 500.2500, L100.0100 ####[facility] [address] [place], [address] MCH (RBC) [Entitic mass] 30.2 pg Normal 27.0-32.0 [facility] Comment on above: Performed By: #### L 500.2500, L100.0100 ####[facility] [address] [place], [address] MCHC (RBC) [Mass/Vol] 30.7 g/dL Low 32-36 [facility] Comment on above: Performed By: #### L 500.2500, L100.0100 ####[facility] [address] [place], [address] MCV (RBC) [Entitic vol] 98.4 fL Normal 81-99 [facility] Comment on above: Performed By: #### L 500.2500, L100.0100 ####[facility] [address] [place], [address] Monocytes/100 WBC (Bld) 9.3 % Normal 0-10 [facility] Comment on above: Performed By: #### L 500.2500, L100.0100 ####[facility] [address] [place], [address] Neutrophils/100 WBC (Bld) 79.2 % High 47-70 [facility] Comment on above: Performed By: #### L 500.2500, L100.0100 ####[facility] [address] [place], [address] Nucleated RBC (Bld) [#/Vol] 0 10*3/uL Normal 0-5 [facility] Comment on above: Performed By: #### L 500.2500, L100.0100 ####[facility] [address] [place], [address] Platelet mean volume (Bld) [Entitic vol] 10.1 fL Normal 6.2-12.0 [facility] Comment on above: Performed By: #### L 500.2500, L100.0100 ####[facility] [address] [place], [address] Platelets (Bld) [#/Vol] 143 10*3/uL Low 150-450 [facility] Comment on above: Performed By: #### L 500.2500, L100.0100 ####[facility] [address] [place], [address] RBC (Bld) [#/Vol] 3.74 10*6/uL Low 4.2-5.4 [facility] Comment on above: Performed By: #### L 500.2500, L100.0100 ####[facility] [address] [place], [address] RDW SD 52.7 fl High 35.1-43.9 [facility] Comment on above: Performed By: #### L 500.2500, L100.0100 ####[facility] [address] [place], [address] WBC (Bld) [#/Vol] 9.1 10*3/uL Normal 4.4-11.0 [facility] Comment on above: Performed By: #### L 500.2500, L100.0100 ####[facility] [address] [place], [address] Basic Metabolic Profile (BMP )on 03-24-2025 BUN/CRE 37.2 RATIO High 10-20 [facility] Comment on above: Performed By: #### L 100.0100, L500.2500 ####[facility] [address] [place], [address] Calcium [Mass/Vol] 8.9 mg/dL Normal 7.6-11.0 [facility] Comment on above: Performed By: #### L 100.0100, L500.2500 ####[facility] [address] [place], [address] Chloride [Moles/Vol] 101 mmol/L Normal 98-108 [facility] Comment on above: Performed By: #### L 100.0100, L500.2500 ####[facility] [address] [place], [address] CO2 [Moles/Vol] 32.9 mmol/L High 21.0-32.0 [facility] Comment on above: Performed By: #### L 100.0100, L500.2500 ####[facility] [address] [place], [address] Creatinine [Mass/Vol] 0.83 mg/dL Normal 0.70-1.20 [facility] Comment on above: Performed By: #### L 100.0100, L500.2500 ####[facility] [address] [place], [address] ECRCL 77.67 ml/min Normal 50-250 [facility] Comment on above: Performed By: #### L 100.0100, L500.2500 ####[facility] [address] [place], [address] GAP 7 Normal 5-15 [facility] Comment on above: Performed By: #### L 100.0100, L500.2500 ####[facility] [address] [place], [address] GFR/1.73 sq M.predicted among non-blacks MDRD (S/P/Bld) [Vol rate/Area] 73 mL/min/{1.73_m2} Normal >60 [facility] Comment on above: Result Comment: mL/m in/1.73m2 CKD-EPI Creatinine Equation (2020) Performed By: #### L 100.0100, L500.2500 ####[facility] [address] [place], [address] Glucose [Mass/Vol] 109 mg/dL High 70-99 [facility] Comment on above: Performed By: #### L 100.0100, L500.2500 ####[facility] [address] [place], [address] Potassium [Moles/Vol] 4.3 mmol/L Normal 3.3-5.1 [facility] Comment on above: Performed By: #### L 100.0100, L500.2500 ####[facility] [address] [place], [address] Sodium [Moles/Vol] 141 mmol/L Normal 133-145 [facility] Comment on above: Performed By: #### L 100.0100, L500.2500 ####[facility] [address] [place], [address] Urea nitrogen [Mass/Vol] 31 mg/dL High 4-19 [facility] Comment on above: Performed By: #### L 100.0100, L500.2500 ####[facility] [address] [place], [address] CBC W/Diff, Automatedon 03-04-2024 Absolute Lymph 1.03 X10 3/uL Normal 0.83-4.51 [facility] Comment on above: Performed By: #### L 100.0100, L500.2500 ####[facility] [address] [place], [address] Absolute Neut 8.0 X10 3/uL High 2.0-7.7 [facility] Comment on above: Performed By: #### L 100.0100, L500.2500 ####[facility] [address] [place], [address] Basophils/100 WBC (Bld) 0.2 % Normal 0-1 [facility] Comment on above: Performed By: #### L 100.0100, L500.2500 ####[facility] [address] [place], [address] Eosinophils/100 WBC (Bld) 2.0 % Normal 0-5 [facility] Comment on above: Performed By: #### L 100.0100, L500.2500 ####[facility] [address] [place], [address] Erythrocyte distribution width (RBC) [Ratio] 15.1 % High 11.6-14.6 [facility] Comment on above: Performed By: #### L 100.0100, L500.2500 ####[facility] [address] [place], [address] Hematocrit (Bld) [Volume fraction] 38.0 % Normal 37-47 [facility] Comment on above: Performed By: #### L 100.0100, L500.2500 ####[facility] [address] [place], [address] Hemoglobin (Bld) [Mass/Vol] 11.5 g/dL Low 12.0-15.0 [facility] Comment on above: Performed By: #### L 100.0100, L500.2500 ####[facility] [address] [place], [address] IG% 0.500 Normal 0.0-0.9 [facility] Comment on above: Result Comment: IG% - Immature Granulocytes (promyelocytes, myelocytes andmetamyelocytes) > 1% indicates that a LEFT SHIFT is Present. Performed By: #### L 100.0100, L500.2500 ####[facility] [address] [place], [address] Lymphocytes/100 WBC (Bld) 9.8 % Low 19-41 [facility] Comment on above: Performed By: #### L 100.0100, L500.2500 ####[facility] [address] [place], [address] MCH (RBC) [Entitic mass] 29.9 pg Normal 27.0-32.0 [facility] Comment on above: Performed By: #### L 100.0100, L500.2500 ####[facility] [address] [place], [address] MCHC (RBC) [Mass/Vol] 30.3 g/dL Low 32-36 [facility] Comment on above: Performed By: #### L 100.0100, L500.2500 ####[facility] [address] [place], [address] MCV (RBC) [Entitic vol] 98.7 fL Normal 81-99 [facility] Comment on above: Performed By: #### L 100.0100, L500.2500 ####[facility] [address] [place], [address] Monocytes/100 WBC (Bld) 12.2 % High 0-10 [facility] Comment on above: Performed By: #### L 100.0100, L500.2500 ####[facility] [address] [place], [address] Neutrophils/100 WBC (Bld) 75.3 % High 47-70 [facility] Comment on above: Performed By: #### L 100.0100, L500.2500 ####[facility] [address] [place], [address] Nucleated RBC (Bld) [#/Vol] 0 10*3/uL Normal 0-5 [facility] Comment on above: Performed By: #### L 100.0100, L500.2500 ####[facility] [address] [place], [address] Platelet mean volume (Bld) [Entitic vol] 10.3 fL Normal 6.2-12.0 [facility] Comment on above: Performed By: #### L 100.0100, L500.2500 ####[facility] [address] [place], [address] Platelets (Bld) [#/Vol] 152 10*3/uL Normal 150-450 [facility] Comment on above: Performed By: #### L 100.0100, L500.2500 ####[facility] [address] [place], [address] RBC (Bld) [#/Vol] 3.85 10*6/uL Low 4.2-5.4 [facility] Comment on above: Performed By: #### L 100.0100, L500.2500 ####[facility] [address] [place], [address] RDW SD 54.4 fl High 35.1-43.9 [facility] Comment on above: Performed By: #### L 100.0100, L500.2500 ####[facility] [address] [place], [address] WBC (Bld) [#/Vol] 10.6 10*3/uL Normal 4.4-11.0 [facility] Comment on above: Performed By: #### L 100.0100, L500.2500 ####[facility] [address] [place], [address] Basic Metabolic Profile (BMP )on 03-23-2025 BUN/CRE 33.2 RATIO High 10-20 [facility] Comment on above: Performed By: #### L 100.0100, L500.2500 ####[facility] [address] [place], [address] Calcium [Mass/Vol] 8.6 mg/dL Normal 7.6-11.0 [facility] Comment on above: Performed By: #### L 100.0100, L500.2500 ####[facility] [address] [place], [address] Chloride [Moles/Vol] 105 mmol/L Normal 98-108 [facility] Comment on above: Performed By: #### L 100.0100, L500.2500 ####[facility] [address] [place], [address] CO2 [Moles/Vol] 32.2 mmol/L High 21.0-32.0 [facility] Comment on above: Performed By: #### L 100.0100, L500.2500 ####[facility] [address] [place], [address] Creatinine [Mass/Vol] 1.21 mg/dL High 0.70-1.20 [facility] Comment on above: Performed By: #### L 100.0100, L500.2500 ####[facility] [address] [place], [address] ECRCL 53.50 ml/min Normal 50-250 [facility] Comment on above: Performed By: #### L 100.0100, L500.2500 ####[facility] [address] [place], [address] GAP 9 Normal 5-15 [facility] Comment on above: Performed By: #### L 100.0100, L500.2500 ####[facility] [address] [place], [address] GFR/1.73 sq M.predicted among non-blacks MDRD (S/P/Bld) [Vol rate/Area] 46 mL/min/{1.73_m2} Low >60 [facility] Comment on above: Result Comment: mL/m in/1.73m2 CKD-EPI Creatinine Equation (2020) Performed By: #### L 100.0100, L500.2500 ####[facility] [address] [place], [address] Glucose [Mass/Vol] 90 mg/dL Normal 70-99 [facility] Comment on above: Performed By: #### L 100.0100, L500.2500 ####[facility] [address] [place], [address] Potassium [Moles/Vol] 4.0 mmol/L Normal 3.3-5.1 [facility] Comment on above: Result Comment: Hemo lysis present, Results??could be affected.?? Performed By: #### L 100.0100, L500.2500 ####[facility] [address] [place], [address] Sodium [Moles/Vol] 147 mmol/L High 133-145 [facility] Comment on above: Performed By: #### L 100.0100, L500.2500 ####[facility] [address] [place], [address] Urea nitrogen [Mass/Vol] 40 mg/dL High 4-19 [facility] Comment on above: Performed By: #### L 100.0100, L500.2500 ####[facility] [address] [place], [address] Bedside Glucoseon 03-23-2024 FINGERSTICK GLU 118 mg/dL High 74-106 [facility] Comment on above: Result Comment: ROSA ISELA BUSTAMANTE OF PATIENT CARE PER NURSING PROTOCOL Performed By: #### L 501.080 ####[facility] [address] [place], [address] CBC W/Diff, Automatedon 03-04 Absolute Lymph 1.83 X10 3/uL Normal 0.83-4.51 [facility] Comment on above: Performed By: #### L 100.0100, L500.2500 ####[facility] [address] [place], [address] Absolute Neut 8.5 X10 3/uL High 2.0-7.7 [facility] Comment on above: Performed By: #### L 100.0100, L500.2500 ####[facility] [address] [place], [address] Basophils/100 WBC (Bld) 0.2 % Normal 0-1 [facility] Comment on above: Performed By: #### L 100.0100, L500.2500 ####[facility] [address] [place], [address] Eosinophils/100 WBC (Bld) 1.6 % Normal 0-5 [facility] Comment on above: Performed By: #### L 100.0100, L500.2500 ####[facility] [address] [place], [address] Erythrocyte distribution width (RBC) [Ratio] 15.1 % High 11.6-14.6 [facility] Comment on above: Performed By: #### L 100.0100, L500.2500 ####[facility] [address] [place], [address] Hematocrit (Bld) [Volume fraction] 37.5 % Normal 37-47 [facility] Comment on above: Performed By: #### L 100.0100, L500.2500 ####[facility] [address] [place], [address] Hemoglobin (Bld) [Mass/Vol] 11.5 g/dL Low 12.0-15.0 [facility] Comment on above: Performed By: #### L 100.0100, L500.2500 ####[facility] [address] [place], [address] IG% 0.500 Normal 0.0-0.9 [facility] Comment on above: Result Comment: IG% - Immature Granulocytes (promyelocytes, myelocytes andmetamyelocytes) > 1% indicates that a LEFT SHIFT is Present. Performed By: #### L 100.0100, L500.2500 ####[facility] [address] [place], [address] Lymphocytes/100 WBC (Bld) 15.5 % Low 19-41 [facility] Comment on above: Performed By: #### L 100.0100, L500.2500 ####[facility] [address] [place], [address] MCH (RBC) [Entitic mass] 29.6 pg Normal 27.0-32.0 [facility] Comment on above: Performed By: #### L 100.0100, L500.2500 ####[facility] [address] [place], [address] MCHC (RBC) [Mass/Vol] 30.7 g/dL Low 32-36 [facility] Comment on above: Performed By: #### L 100.0100, L500.2500 ####[facility] [address] [place], [address] MCV (RBC) [Entitic vol] 96.6 fL Normal 81-99 [facility] Comment on above: Performed By: #### L 100.0100, L500.2500 ####[facility] [address] [place], [address] Monocytes/100 WBC (Bld) 9.8 % Normal 0-10 [facility] Comment on above: Performed By: #### L 100.0100, L500.2500 ####[facility] [address] [place], [address] Neutrophils/100 WBC (Bld) 72.4 % High 47-70 [facility] Comment on above: Performed By: #### L 100.0100, L500.2500 ####[facility] [address] [place], [address] Nucleated RBC (Bld) [#/Vol] 0 10*3/uL Normal 0-5 [facility] Comment on above: Performed By: #### L 100.0100, L500.2500 ####[facility] [address] [place], [address] Platelet mean volume (Bld) [Entitic vol] 10.6 fL Normal 6.2-12.0 [facility] Comment on above: Performed By: #### L 100.0100, L500.2500 ####[facility] [address] [place], [place], [address] Platelets (Bld) [#/Vol] 153 10*3/uL Normal 150-450 [facility] Comment on above: Performed By: #### L 100.0100, L500.2500 ####[facility] [address] [place], [address] RBC (Bld) [#/Vol] 3.88 10*6/uL Low 4.2-5.4 [facility] Comment on above: Performed By: #### L 100.0100, L500.2500 ####[facility] [address] [place], [address] RDW SD 53.0 fl High 35.1-43.9 [facility] Comment on above: Performed By: #### L 100.0100, L500.2500 ####[facility] [address] [place], [address] WBC (Bld) [#/Vol] 11.8 10*3/uL High 4.4-11.0 [facility] Comment on above: Performed By: #### L 100.0100, L500.2500 ####[facility] [address] [place], [address] Culture, Blood (WB)on 2024 CUB Blood cultures x2, f rom two different sites No growth in 5 days. Normal [facility] Comment on above: Performed By: #### L 300.3900, L300.4310, L503.6005, M200.1000 ####[facility] [address] [place], [address] Basic Metabolic Profile (BMP )on 03-22-2025 BUN/CRE 37.1 RATIO High 10-20 [facility] Comment on above: Performed By: #### L 100.0100, L500.2500 ####[facility] [address] [place], [address] Calcium [Mass/Vol] 8.6 mg/dL Normal 7.6-11.0 [facility] Comment on above: Performed By: #### L 100.0100, L500.2500 ####[facility] [address] [place], [address] Chloride [Moles/Vol] 103 mmol/L Normal 98-108 [facility] Comment on above: Performed By: #### L 100.0100, L500.2500 ####[facility] [address] [place], [address] CO2 [Moles/Vol] 32.5 mmol/L High 21.0-32.0 [facility] Comment on above: Performed By: #### L 100.0100, L500.2500 ####[facility] [address] [place], [address] Creatinine [Mass/Vol] 1.10 mg/dL Normal 0.70-1.20 [facility] Comment on above: Performed By: #### L 100.0100, L500.2500 ####[facility] [address] [place], [address] ECRCL 56.98 ml/min Normal 50-250 [facility] Comment on above: Performed By: #### L 100.0100, L500.2500 ####[facility] [address] [place], [address] GAP 7 Normal 5-15 [facility] Comment on above: Performed By: #### L 100.0100, L500.2500 ####[facility] [address] [place], [address] GFR/1.73 sq M.predicted among non-blacks MDRD (S/P/Bld) [Vol rate/Area] 52 mL/min/{1.73_m2} Low >60 [facility] Comment on above: Result Comment: mL/m in/1.73m2 CKD-EPI Creatinine Equation (2020) Performed By: #### L 100.0100, L500.2500 ####[facility] [address] [place], [address] Glucose [Mass/Vol] 122 mg/dL High 70-99 [facility] Comment on above: Performed By: #### L 100.0100, L500.2500 ####[facility] [address] [place], [address] Potassium [Moles/Vol] 3.6 mmol/L Normal 3.3-5.1 [facility] Comment on above: Performed By: #### L 100.0100, L500.2500 ####[facility] [address] [place], [address] Sodium [Moles/Vol] 142 mmol/L Normal 133-145 [facility] Comment on above: Performed By: #### L 100.0100, L500.2500 ####[facility] [address] [place], [address] Urea nitrogen [Mass/Vol] 41 mg/dL High 4-19 [facility] Comment on above: Performed By: #### L 100.0100, L500.2500 ####[facility] [address] [place], [address] CBC W/Diff, Automatedon 09-2 0-2025 Absolute Lymph 0.61 X10 3/uL Low 0.83-4.51 [facility] Comment on above: Performed By: #### L 100.0100, L500.2500 ####[facility] [address] [place], [address] Absolute Neut 10.8 X10 3/uL High 2.0-7.7 [facility] Comment on above: Performed By: #### L 100.0100, L500.2500 ####[facility] [address] [place], [address] Basophils/100 WBC (Bld) 0.1 % Normal 0-1 [facility] Comment on above: Performed By: #### L 100.0100, L500.2500 ####[facility] [address] [place], [address] Eosinophils/100 WBC (Bld) 0.0 % Normal 0-5 [facility] Comment on above: Performed By: #### L 100.0100, L500.2500 ####[facility] [address] [place], [address] Erythrocyte distribution width (RBC) [Ratio] 15.0 % High 11.6-14.6 [facility] Comment on above: Performed By: #### L 100.0100, L500.2500 ####[facility] [address] [place], [address] Hematocrit (Bld) [Volume fraction] 37.2 % Normal 37-47 [facility] Comment on above: Performed By: #### L 100.0100, L500.2500 ####[facility] [address] [place], [address] Hemoglobin (Bld) [Mass/Vol] 11.7 g/dL Low 12.0-15.0 [facility] Comment on above: Performed By: #### L 100.0100, L500.2500 ####[facility] [address] [place], [address] IG% 0.600 Normal 0.0-0.9 [facility] Comment on above: Result Comment: IG% - Immature Granulocytes (promyelocytes, myelocytes andmetamyelocytes) > 1% indicates that a LEFT SHIFT is Present. Performed By: #### L 100.0100, L500.2500 ####[facility] [address] [place], [address] Lymphocytes/100 WBC (Bld) 5.1 % Low 19-41 [facility] Comment on above: Performed By: #### L 100.0100, L500.2500 ####[facility] [address] [place], [address] MCH (RBC) [Entitic mass] 29.8 pg Normal 27.0-32.0 [facility] Comment on above: Performed By: #### L 100.0100, L500.2500 ####[facility] [address] [place], [address] MCHC (RBC) [Mass/Vol] 31.5 g/dL Low 32-36 [facility] Comment on above: Performed By: #### L 100.0100, L500.2500 ####[facility] [address] [place], [address] MCV (RBC) [Entitic vol] 94.7 fL Normal 81-99 [facility] Comment on above: Performed By: #### L 100.0100, L500.2500 ####[facility] [address] [place], [address] Monocytes/100 WBC (Bld) 4.1 % Normal 0-10 [facility] Comment on above: Performed By: #### L 100.0100, L500.2500 ####[facility] [address] [place], [address] Neutrophils/100 WBC (Bld) 90.1 % High 47-70 [facility] Comment on above: Performed By: #### L 100.0100, L500.2500 ####[facility] [address] [place], [address] Nucleated RBC (Bld) [#/Vol] 0 10*3/uL Normal 0-5 [facility] Comment on above: Performed By: #### L 100.0100, L500.2500 ####[facility] [address] [place], [address] Platelet mean volume (Bld) [Entitic vol] 10.2 fL Normal 6.2-12.0 [facility] Comment on above: Performed By: #### L 100.0100, L500.2500 ####[facility] [address] [place], [address] Platelets (Bld) [#/Vol] 146 10*3/uL Low 150-450 [facility] Comment on above: Performed By: #### L 100.0100, L500.2500 ####[facility] [address] [place], [address] RBC (Bld) [#/Vol] 3.93 10*6/uL Low 4.2-5.4 [facility] Comment on above: Performed By: #### L 100.0100, L500.2500 ####[facility] [address] [place], [address] RDW SD 52.0 fl High 35.1-43.9 [facility] Comment on above: Performed By: #### L 100.0100, L500.2500 ####[facility] [address] [place], [address] WBC (Bld) [#/Vol] 11.9 10*3/uL High 4.4-11.0 [facility] Comment on above: Performed By: #### L 100.0100, L500.2500 ####[facility] [address] [place], [address] Basic Metabolic Profile (BMP )on 03-21-2025 BUN/CRE 30.4 RATIO High 10-20 [facility] Comment on above: Performed By: #### L 500.2500, L100.0100 ####[facility] [address] [place], [address] Calcium [Mass/Vol] 8.5 mg/dL Normal 7.6-11.0 [facility] Comment on above: Performed By: #### L 500.2500, L100.0100 ####[facility] [address] [place], [address] Chloride [Moles/Vol] 100 mmol/L Normal 98-108 [facility] Comment on above: Performed By: #### L 500.2500, L100.0100 ####[facility] [address] [place], [address] CO2 [Moles/Vol] 30.8 mmol/L Normal 21.0-32.0 [facility] Comment on above: Performed By: #### L 500.2500, L100.0100 ####[facility] [address] [place], [address] Creatinine [Mass/Vol] 1.35 mg/dL High 0.70-1.20 [facility] Comment on above: Performed By: #### L 500.2500, L100.0100 ####[facility] [address] [place], [address] ECRCL 46.43 ml/min Low 50-250 [facility] Comment on above: Performed By: #### L 500.2500, L100.0100 ####[facility] [address] [place], [address] GAP 10 Normal 5-15 [facility] Comment on above: Performed By: #### L 500.2500, L100.0100 ####[facility] [address] [place], [address] GFR/1.73 sq M.predicted among non-blacks MDRD (S/P/Bld) [Vol rate/Area] 41 mL/min/{1.73_m2} Low >60 [facility] Comment on above: Result Comment: mL/m in/1.73m2 CKD-EPI Creatinine Equation (2020) Performed By: #### L 500.2500, L100.0100 ####[facility] [address] [place], [address] Glucose [Mass/Vol] 117 mg/dL High 70-99 [facility] Comment on above: Performed By: #### L 500.2500, L100.0100 ####[facility] [address] [place], [address] Potassium [Moles/Vol] 3.5 mmol/L Normal 3.3-5.1 [facility] Comment on above: Performed By: #### L 500.2500, L100.0100 ####[facility] [address] [place], [address] Sodium [Moles/Vol] 141 mmol/L Normal 133-145 [facility] Comment on above: Performed By: #### L 500.2500, L100.0100 ####[facility] [address] [place], [address] Urea nitrogen [Mass/Vol] 41 mg/dL High 4-19 [facility] Comment on above: Performed By: #### L 500.2500, L100.0100 ####[facility] [address] [place], [address] CBC W/Diff, Automatedon 09- Absolute Lymph 0.54 X10 3/uL Low 0.83-4.51 [facility] Comment on above: Performed By: #### L 500.2500, L100.0100 ####[facility] [address] [place], [address] Absolute Neut 14.3 X10 3/uL High 2.0-7.7 [facility] Comment on above: Performed By: #### L 500.2500, L100.0100 ####[facility] [address] [place], [address] Basophils/100 WBC (Bld) 0.3 % Normal 0-1 [facility] Comment on above: Performed By: #### L 500.2500, L100.0100 ####[facility] [address] [place], [address] Eosinophils/100 WBC (Bld) 0.1 % Normal 0-5 [facility] Comment on above: Performed By: #### L 500.2500, L100.0100 ####[facility] [address] [place], [address] Erythrocyte distribution width (RBC) [Ratio] 15.2 % High 11.6-14.6 [facility] Comment on above: Performed By: #### L 500.2500, L100.0100 ####[facility] [address] [place], [address] Hematocrit (Bld) [Volume fraction] 39.0 % Normal 37-47 [facility] Comment on above: Performed By: #### L 500.2500, L100.0100 ####[facility] [address] [place], [address] Hemoglobin (Bld) [Mass/Vol] 12.5 g/dL Normal 12.0-15.0 [facility] Comment on above: Performed By: #### L 500.2500, L100.0100 ####[facility] [address] [place], [address] IG% 0.800 Normal 0.0-0.9 [facility] Comment on above: Result Comment: IG% - Immature Granulocytes (promyelocytes, myelocytes andmetamyelocytes) > 1% indicates that a LEFT SHIFT is Present. Performed By: #### L 500.2500, L100.0100 ####[facility] [address] [place], [address] Lymphocytes/100 WBC (Bld) 3.4 % Low 19-41 [facility] Comment on above: Performed By: #### L 500.2500, L100.0100 ####[facility] [address] [place], [address] MCH (RBC) [Entitic mass] 29.6 pg Normal 27.0-32.0 [facility] Comment on above: Performed By: #### L 500.2500, L100.0100 ####[facility] [address] [place], [address] MCHC (RBC) [Mass/Vol] 32.1 g/dL Normal 32-36 [facility] Comment on above: Performed By: #### L 500.2500, L100.0100 ####[facility] [address] [place], [address] MCV (RBC) [Entitic vol] 92.2 fL Normal 81-99 [facility] Comment on above: Performed By: #### L 500.2500, L100.0100 ####[facility] [address] [place], [address] Monocytes/100 WBC (Bld) 4.6 % Normal 0-10 [facility] Comment on above: Performed By: #### L 500.2500, L100.0100 ####[facility] [address] [place], [address] Neutrophils/100 WBC (Bld) 90.8 % High 47-70 [facility] Comment on above: Performed By: #### L 500.2500, L100.0100 ####[facility] [address] [place], [address] Nucleated RBC (Bld) [#/Vol] 0 10*3/uL Normal 0-5 [facility] Comment on above: Performed By: #### L 500.2500, L100.0100 ####[facility] [address] [place], [address] Platelet mean volume (Bld) [Entitic vol] 10.1 fL Normal 6.2-12.0 [facility] Comment on above: Performed By: #### L 500.2500, L100.0100 ####[facility] [address] [place], [address] Platelets (Bld) [#/Vol] 171 10*3/uL Normal 150-450 [facility] Comment on above: Performed By: #### L 500.2500, L100.0100 ####[facility] [address] [place], [address] RBC (Bld) [#/Vol] 4.23 10*6/uL Normal 4.2-5.4 [facility] Comment on above: Performed By: #### L 500.2500, L100.0100 ####[facility] [address] [place], [address] RDW SD 50.4 fl High 35.1-43.9 [facility] Comment on above: Performed By: #### L 500.2500, L100.0100 ####[facility] [address] [place], [address] WBC (Bld) [#/Vol] 15.7 10*3/uL High 4.4-11.0 [facility] Comment on above: Performed By: #### L 500.2500, L100.0100 ####[facility] [address] [place], [address] Basic Metabolic Profile (BMP )on 03-20-2025 BUN/CRE 26.4 RATIO High 10-20 [facility] Comment on above: Performed By: #### L 100.0100, L500.2500 ####[facility] [address] [place], [address] Calcium [Mass/Vol] 9.0 mg/dL Normal 7.6-11.0 [facility] Comment on above: Performed By: #### L 100.0100, L500.2500 ####[facility] [address] [place], [address] Chloride [Moles/Vol] 95 mmol/L Low 98-108 [facility] Comment on above: Performed By: #### L 100.0100, L500.2500 ####[facility] [address] [place], [address] CO2 [Moles/Vol] 31.0 mmol/L Normal 21.0-32.0 [facility] Comment on above: Performed By: #### L 100.0100, L500.2500 ####[facility] [address] [place], [address] Creatinine [Mass/Vol] 1.44 mg/dL High 0.70-1.20 [facility] Comment on above: Performed By: #### L 100.0100, L500.2500 ####[facility] [address] [place], [address] ECRCL 43.32 ml/min Low 50-250 [facility] Comment on above: Performed By: #### L 100.0100, L500.2500 ####[facility] [address] [place], [address] GAP 13 Normal 5-15 [facility] Comment on above: Performed By: #### L 100.0100, L500.2500 ####[facility] [address] [place], [address] GFR/1.73 sq M.predicted among non-blacks MDRD (S/P/Bld) [Vol rate/Area] 38 mL/min/{1.73_m2} Low >60 [facility] Comment on above: Result Comment: mL/m in/1.73m2 CKD-EPI Creatinine Equation (2020) Performed By: #### L 100.0100, L500.2500 ####[facility] [address] [place], [address] Glucose [Mass/Vol] 129 mg/dL High 70-99 [facility] Comment on above: Performed By: #### L 100.0100, L500.2500 ####[facility] [address] [place], [address] Potassium [Moles/Vol] 3.6 mmol/L Normal 3.3-5.1 [facility] Comment on above: Performed By: #### L 100.0100, L500.2500 ####[facility] [address] [place], [address] Sodium [Moles/Vol] 139 mmol/L Normal 133-145 [facility] Comment on above: Performed By: #### L 100.0100, L500.2500 ####[facility] [address] [place], [address] Urea nitrogen [Mass/Vol] 38 mg/dL High 4-19 [facility] Comment on above: Performed By: #### L 100.0100, L500.2500 ####[facility] [address] [place], [address] CBC W/Diff, Automatedon 09- Absolute Lymph 0.55 X10 3/uL Low 0.83-4.51 [facility] Comment on above: Performed By: #### L 100.0100, L500.2500 ####[facility] [address] [place], [address] Absolute Neut 12.1 X10 3/uL High 2.0-7.7 [facility] Comment on above: Performed By: #### L 100.0100, L500.2500 ####[facility] [address] [place], [address] Basophils/100 WBC (Bld) 0.2 % Normal 0-1 [facility] Comment on above: Performed By: #### L 100.0100, L500.2500 ####[facility] [address] [place], [address] Eosinophils/100 WBC (Bld) 0.0 % Normal 0-5 [facility] Comment on above: Performed By: #### L 100.0100, L500.2500 ####[facility] [address] [place], [address] Erythrocyte distribution width (RBC) [Ratio] 14.9 % High 11.6-14.6 [facility] Comment on above: Performed By: #### L 100.0100, L500.2500 ####[facility] [address] [place], [address] Hematocrit (Bld) [Volume fraction] 44.0 % Normal 37-47 [facility] Comment on above: Performed By: #### L 100.0100, L500.2500 ####[facility] [address] [place], [address] Hemoglobin (Bld) [Mass/Vol] 14.9 g/dL Normal 12.0-15.0 [facility] Comment on above: Performed By: #### L 100.0100, L500.2500 ####[facility] [address] [place], [address] IG% 0.700 Normal 0.0-0.9 [facility] Comment on above: Result Comment: IG% - Immature Granulocytes (promyelocytes, myelocytes andmetamyelocytes) > 1% indicates that a LEFT SHIFT is Present. Performed By: #### L 100.0100, L500.2500 ####[facility] [address] [place], [address] Lymphocytes/100 WBC (Bld) 4.1 % Low 19-41 [facility] Comment on above: Performed By: #### L 100.0100, L500.2500 ####[facility] [address] [place], [address] MCH (RBC) [Entitic mass] 29.6 pg Normal 27.0-32.0 [facility] Comment on above: Performed By: #### L 100.0100, L500.2500 ####[facility] [address] [place], [address] MCHC (RBC) [Mass/Vol] 33.9 g/dL Normal 32-36 [facility] Comment on above: Performed By: #### L 100.0100, L500.2500 ####[facility] [address] [place], [address] MCV (RBC) [Entitic vol] 87.5 fL Normal 81-99 [facility] Comment on above: Performed By: #### L 100.0100, L500.2500 ####[facility] [address] [place], [address] Monocytes/100 WBC (Bld) 4.1 % Normal 0-10 [facility] Comment on above: Performed By: #### L 100.0100, L500.2500 ####[facility] [address] [place], [address] Neutrophils/100 WBC (Bld) 90.9 % High 47-70 [facility] Comment on above: Performed By: #### L 100.0100, L500.2500 ####[facility] [address] [place], [address] Nucleated RBC (Bld) [#/Vol] 0 10*3/uL Normal 0-5 [facility] Comment on above: Performed By: #### L 100.0100, L500.2500 ####[facility] [address] [place], [address] Platelet mean volume (Bld) [Entitic vol] 10.3 fL Normal 6.2-12.0 [facility] Comment on above: Performed By: #### L 100.0100, L500.2500 ####[facility] [address] [place], [address] Platelets (Bld) [#/Vol] 221 10*3/uL Normal 150-450 [facility] Comment on above: Performed By: #### L 100.0100, L500.2500 ####[facility] [address] [place], [address] RBC (Bld) [#/Vol] 5.03 10*6/uL Normal 4.2-5.4 [facility] Comment on above: Performed By: #### L 100.0100, L500.2500 ####[facility] [address] [place], [address] RDW SD 46.7 fl High 35.1-43.9 [facility] Comment on above: Performed By: #### L 100.0100, L500.2500 ####[facility] [address] [place], [address] WBC (Bld) [#/Vol] 13.3 10*3/uL High 4.4-11.0 [facility] Comment on above: Performed By: #### L 100.0100, L500.2500 ####[facility] [address] [place], [address] Consultation - Cardiologyon 03-20-2025 Consultation - Cardiology Normal [facility] Consultation - Infectious Dx on 03-20-2025 Consultation - Infectious Dx Normal [facility] Extremity Upper without Cont raon 03-20-2025 Extremity Upper without Contra Normal [facility] Respiratory Cultureon 2024 RESPC Mixed normal respira tory talya. No Streptococcus pneumoniae, beta-hemolytic Streptococcus or Staphylococcus aureus isolated. Normal [facility] Comment on above: Performed By: #### M 100.2400, M100.2000 ####[facility] [address] [place], [address] Trough vancomycin levelOrder ed By: Emili Lee on 03-20-2025 Vancomycin trough [Mass/Vol] 15.6 ug/mL High 5.0-15.0 [facility] Vancomycin, Trough Levelon 0 03-20-2025 VANCO, TROUGH 15.6 ug/mL High 5.0-15.0 [facility] Comment on above: Order Comment: 2129 Result [...] therapy recommended for serious lifethreatening infections include:- Uhnzfakxan-Nhsvszisqyty-Yqriduljj (Ventilator/Healtcare Associated)-SepsisPLEASE CONTACT PHARMACY SERVICES (#2550) FOR INTERPRETATIONOF RESULTS. Performed By: #### L 501.8820 ####[facility] [address] [place], [address] Absolute lymphocyte countOrd ered By: Emili Lee on 03-19-2025 Lymphocytes Auto (Unsp spec) [#/Vol] 1.78 10*3/uL 0.83-4.51 [facility] Absolute neutrophil countOrd ered By: Emili Lee on 03-19-2025 Neutrophils (Bld) [#/Vol] 12.4 10*3/uL High 2.0-7.7 [facility] Anion gap in Serum or Plasma Ordered By: Emili Lee on 03-19-2025 Anion gap [Moles/Vol] 16 mmol/L High 5- [facility] BUN/creatinine ratioOrdered By: Emili Lee on 03-19-2025 Urea nitrogen/Creatinine [Mass ratio] 26.2 mg/mg High 10- [facility] Basophil percentageOrdered B y: Emili Lee on 03-19-2025 Basophils/100 WBC (Bld) 0.3 % Normal 0-1 [facility] Comment on above: Order Comment: RESUL T(S) PREVIOUSLY REPORTED ON MANUAL REQUISITION DURINGDOWNTIME. Performed By: #### L 100.0100, L500.4050 ####[facility] [address] [place], [address] Bilirubin, totalOrdered By: Emili Lee on 03-19-2025 Bilirubin [Mass/Vol] 0.56 mg/dL 0.00-1.30 [facility] Blood Gases by CPSon 025 Base excess Calc (Bld) [Moles/Vol] 10 mmol/L High -2 to +2 [facility] Comment on above: Performed By: #### L 9000.0800 ####[facility] [address] [place], [address] Blood Gas Type ART Normal [facility] Comment on above: Performed By: #### L 9000.0800 ####[facility] [address] [place], [address] CO2 [Moles/Vol] 36 mmol/L Normal [facility] Comment on above: Performed By: #### L 9000.0800 ####[facility] [address] [place], [address] FI02 35.0 Normal [facility] Comment on above: Performed By: #### L 9000.0800 ####[facility] [address] [place], [address] HCO3 (Bld) [Moles/Vol] 34.3 mmol/L High 22-26 [facility] Comment on above: Performed By: #### L 9000.0800 ####[facility] [address], [address] Mode AC Normal [facility] Comment on above: Performed By: #### L 9000.0800 ####[facility] [address] [place], [address] O2 Delivery Dev Adult Vent Normal [facility] Comment on above: Performed By: #### L 9000.0800 ####[facility] [address] [place], [address] pCO2 48.5 mmHg High 35-45 [facility] Comment on above: Performed By: #### L 9000.0800 ####[facility] [address] [place], [address] PEEP 5 Normal [facility] Comment on above: Performed By: #### L 9000.0800 ####[facility] [address] [place], [address] pH (Bld) 7.46 [pH] High 7.35-7.45 [facility] Comment on above: Performed By: #### L 9000.0800 ####[facility] [address] [place], [address] PO2 63 mmHG Low 75-100 [facility] Comment on above: Performed By: #### L 9000.0800 ####[facility] [address] [place], [address] RR 14 Normal [facility] Comment on above: Performed By: #### L 9000.0800 ####[facility] [address] [place], [address] SITE Art Line Normal [facility] Comment on above: Performed By: #### L 9000.0800 ####[facility] [address] [place], [address] SO2 93 Low 95-99 [facility] Comment on above: Performed By: #### L 9000.0800 ####[facility] [address] [place], [address] Vt 400.0 mL Normal [facility] Comment on above: Performed By: #### L 9000.0800 ####[facility] [address] [place], [address] Blood base excess determinat ionOrdered By: Otilia Hernandez on 03-19-2025 Base excess Calc (BldV) [Moles/Vol] 10 mmol/L High -2-2 [facility] Blood bicarbonate measuremen tOrdered By: Otilia Hernandez on 03-19-2025 HCO3 (Bld) [Moles/Vol] 34.3 mmol/L High 22-26 [facility] Blood platelets count (numbe r/volume)Ordered By: Emili Lee on 03-19-2025 Platelets (Bld) [#/Vol] 244 10*3/uL Normal 150-450 [facility] Comment on above: Order Comment: RESUL T(S) PREVIOUSLY REPORTED ON MANUAL REQUISITION DURINGDOWNTIME. Performed By: #### L 100.0100, L500.4050 ####[facility] [address] [place], [address] CBC W/Diff, Automatedon 03-03 Absolute Lymph 1.78 X10 3/uL Normal 0.83-4.51 [facility] Comment on above: Order Comment: RESUL T(S) PREVIOUSLY REPORTED ON MANUAL REQUISITION DURINGDOWNTIME. Performed By: #### L 100.0100, L500.4050 ####[facility] [address] [place], [address] Absolute Neut 12.4 X10 3/uL High 2.0-7.7 [facility] Comment on above: Order Comment: RESUL T(S) PREVIOUSLY REPORTED ON MANUAL REQUISITION DURINGDOWNTIME. Performed By: #### L 100.0100, L500.4050 ####[facility] [address] [place], [address] IG% 0.500 Normal 0.0-0.9 [facility] Comment on above: Order Comment: RESUL T(S) PREVIOUSLY REPORTED ON MANUAL REQUISITION DURINGDOWNTIME. Result Comment: IG% - Immature Granulocytes (promyelocytes, myelocytes andmetamyelocytes) > 1% indicates that a LEFT SHIFT is Present. Performed By: #### L 100.0100, L500.4050 ####[facility] [address] [place], [address] RDW SD 45.3 fl High 35.1-43.9 [facility] Comment on above: Order Comment: RESUL T(S) PREVIOUSLY REPORTED ON MANUAL REQUISITION DURINGDOWNTIME. Performed By: #### L 100.0100, L500.4050 ####[facility] [address] [place], [address] Hematocrit (Bld) [Volume fraction] 46.5 % Normal 37-47 [facility] Comment on above: Order Comment: RESUL T(S) PREVIOUSLY REPORTED ON MANUAL REQUISITION DURINGDOWNTIME. Performed By: #### L 100.0100, L500.4050 ####[facility] [address] [place], [address] Hemoglobin (Bld) [Mass/Vol] 15.7 g/dL High 12.0-15.0 [facility] Comment on above: Order Comment: RESUL T(S) PREVIOUSLY REPORTED ON MANUAL REQUISITION DURINGDOWNTIME. Performed By: #### L 100.0100, L500.4050 ####[facility] [address] [place], [address] RBC (Bld) [#/Vol] 5.28 10*6/uL Normal 4.2-5.4 [facility] Comment on above: Order Comment: RESUL T(S) PREVIOUSLY REPORTED ON MANUAL REQUISITION DURINGDOWNTIME. Performed By: #### L 100.0100, L500.4050 ####[facility] [address] [place], [address] WBC (Bld) [#/Vol] 14.9 10*3/uL High 4.4-11.0 [facility] Comment on above: Order Comment: RESUL T(S) PREVIOUSLY REPORTED ON MANUAL REQUISITION DURINGDOWNTIME. Performed By: #### L 100.0100, L500.4050 ####[facility] [address] [place], [address] CPK Total, Creatine Kinaseon 03-19-2025 CPK TOTAL 137 U/L Normal 24-195 [facility] Comment on above: Order Comment: Comme nts: DC when propofol is d/c'd Performed By: #### L 501.3620, L501.5000 ####[facility] [address] [place], [address] Carbon dioxide, total [Moles /volume] in Central venous bloodOrdered By: Emili Lee on 03-19-2025 CO2 [Moles/Vol] 30.8 mmol/L 21.0-32.0 [facility] Chloride assayOrdered By: Anna Lee on 03-19-2025 Chloride [Moles/Vol] 88 mmol/L Low 98-108 [facility] Comprehensive Metabolic Prof ilon 03-19-2025 Albumin [Mass/Vol] 3.6 g/dL Normal 3.4-4.8 [facility] Comment on above: Performed By: #### L 100.0100, L500.4050 ####[facility] [address] [place], [address] Albumin/Globulin [Mass ratio] 1.2 {ratio} Normal 0.9-2.4 [facility] Comment on above: Performed By: #### L 100.0100, L500.4050 ####[facility] [address] [place], [address] ALK PHOS 149 U/L High 35-104 [facility] Comment on above: Performed By: #### L 100.0100, L500.4050 ####[facility] [address] [place], [address] ALT [Catalytic activity/Vol] 64 U/L High <=34 [facility] Comment on above: Performed By: #### L 100.0100, L500.4050 ####[facility] [address] [place], [address] AST [Catalytic activity/Vol] 94 U/L High <=31 [facility] Comment on above: Performed By: #### L 100.0100, L500.4050 ####[facility] [address] [place], [address] Bilirubin [Mass/Vol] 0.56 mg/dL Normal 0.00-1.30 [facility] Comment on above: Performed By: #### L 100.0100, L500.4050 ####[facility] [address] [place], [address] BUN/CRE 26.2 RATIO High 10-20 [facility] Comment on above: Performed By: #### L 100.0100, L500.4050 ####[facility] [address] [place], [address] Calcium [Mass/Vol] 8.7 mg/dL Normal 7.6-11.0 [facility] Comment on above: Performed By: #### L 100.0100, L500.4050 ####[facility] [address] [place], [address] Chloride [Moles/Vol] 88 mmol/L Low 98-108 [facility] Comment on above: Performed By: #### L 100.0100, L500.4050 ####[facility] [address] [place], [address] CO2 [Moles/Vol] 30.8 mmol/L Normal 21.0-32.0 [facility] Comment on above: Performed By: #### L 100.0100, L500.4050 ####[facility] [address] [place], [address] Creatinine [Mass/Vol] 2.06 mg/dL High 0.70-1.20 [facility] Comment on above: Performed By: #### L 100.0100, L500.4050 ####[facility] [address] [place], [address] ECRCL 29.42 ml/min Low 50-250 [facility] Comment on above: Performed By: #### L 100.0100, L500.4050 ####[facility] [address] [place], [address] GAP 16 High 5-15 [facility] Comment on above: Performed By: #### L 100.0100, L500.4050 ####[facility] [address] [place], [address] GFR/1.73 sq M.predicted among non-blacks MDRD (S/P/Bld) [Vol rate/Area] 25 mL/min/{1.73_m2} Low >60 [facility] Comment on above: Result Comment: mL/m in/1.73m2 CKD-EPI Creatinine Equation (2020) Performed By: #### L 100.0100, L500.4050 ####[facility] [address] [place], [address] Globulin (S) [Mass/Vol] 3.0 g/dL Normal 2.2-4.2 [facility] Comment on above: Performed By: #### L 100.0100, L500.4050 ####[facility] [address] [place], [address] Glucose [Mass/Vol] 88 mg/dL Normal 70-99 [facility] Comment on above: Performed By: #### L 100.0100, L500.4050 ####[facility] [address] [place], [address] Potassium [Moles/Vol] 3.5 mmol/L Normal 3.3-5.1 [facility] Comment on above: Performed By: #### L 100.0100, L500.4050 ####[facility] [address] [place], [address] Sodium [Moles/Vol] 134 mmol/L Normal 133-145 [facility] Comment on above: Performed By: #### L 100.0100, L500.4050 ####[facility] [address] [place], [address] T PROT 6.6 g/dL Normal 5.9-8.4 [facility] Comment on above: Performed By: #### L 100.0100, L500.4050 ####[facility] [address] [place], [address] Urea nitrogen [Mass/Vol] 54 mg/dL High 4-19 [facility] Comment on above: Performed By: #### L 100.0100, L500.4050 ####[facility] [address] 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, [address] Echo Limited w/Contraston Echo Limited w/Contrast Normal [facility] Electrocardiogram reportOrde red By: Saul Kearney on 03-19-2025 EKG study [facility] Work Phone: Eosinophil %Ordered By: Stephen Lee on 03-19-2025 Eosinophils/100 WBC (Bld) 0.1 % Normal 0-5 [facility] Comment on above: Order Comment: RESUL T(S) PREVIOUSLY REPORTED ON MANUAL REQUISITION DURINGDOWNTIME. Performed By: #### L 100.0100, L500.4050 ####[facility] [address] [place], [place], [address] Erythrocyte distribution wid th ratioOrdered By: Emili Lee on 03-19-2025 Erythrocyte distribution width (RBC) [Ratio] 14.4 % Normal 11.6-14.6 [facility] Comment on above: Order Comment: RESUL T(S) PREVIOUSLY REPORTED ON MANUAL REQUISITION DURINGDOWNTIME. Performed By: #### L 100.0100, L500.4050 ####[facility] [address] [place], [place], [address] Gastric contents occult bloo d detectionOrdered By: Antwan Gardner on 03-19-2025 Hemoglobin.gastrointest inal Ql (Cecily fld) Positive Abnormal [facility] Hemoglobin.gastrointest inal Ql (Cecily fld) Positive Abnormal [facility] Gastric, Occult Bloodon 03-03 GASTOC Normal Reference Ran ge = Negative Gastrocult- Occult Blood A * POSITIVE * A Gastroccult pH 2 OCCULT BLOOD POSITIVE Normal [facility] Comment on above: Performed By: #### M 100.6600 ####[facility] [address] [place], [place], [id number] Glomerular filtration rate ( GFR) estimation/1.73 sq m using serum, plasma, or whole bOrdered By: Emili Lee on 03-19-2025 GFR/1.73 sq M.predicted among non-blacks MDRD (S/P/Bld) [Vol rate/Area] 25 mL/min/{1.73_m2} Low >60 [facility] Comment on above: mL/min/1.73m2 CKD-EP I Creatinine Equation (2020) Hematocrit Auto (Bld) [Volum e fraction]Ordered By: Emili Lee on 03-19-2025 Hematocrit (Bld) [Volume fraction] 46.5 % 37-47 [facility] Hemoglobin measurementOrdere d By: Emili Lee on 03-19-2025 Hemoglobin (Bld) [Mass/Vol] 15.7 g/dL High 12.0-15.0 [facility] Immature granulocyte percent ageOrdered By: Emili Lee on 03-19-2025 Immature granulocytes/100 WBC (Bld) 0.500 % 0.0-0.9 [facility] Comment on above: IG% - Immature Granu locytes (promyelocytes, myelocytes and metamyelocytes) > 1% indicates that a LEFT SHIFT is Present. Laboratory - Chemistry and C hemistry - challengeOrdered By: Emili Lee on 03-19-2025 AST [Catalytic activity/Vol] 94 U/L High <32 [facility] Lactic Acidon 03-19-2025 Lactate [Moles/Vol] 1.3 mmol/L Normal 0.0-2.0 [facility] Comment on above: Order Comment: Y Performed By: #### L 503.6005 ####[facility] [address] [place], [place], [address] Limited echocardiogram repor tOrdered By: Saul Kearney on 03-19-2025 Study report [facility] Work Phone: Lymphocyte %Ordered By: Stephen Lee on 03-19-2025 Lymphocytes/100 WBC (Bld) 11.9 % Low 19-41 [facility] Comment on above: Order Comment: RESUL T(S) PREVIOUSLY REPORTED ON MANUAL REQUISITION DURINGDOWNTIME. Performed By: #### L 100.0100, L500.4050 ####[facility] [address] [place], [place], [address] MCV (mean corpuscular volume ) determinationOrdered By: Emili Lee on 03-19-2025 MCV (RBC) [Entitic vol] 88.1 fL Normal 81-99 [facility] Comment on above: Delta: 93.5 on 03/18-1514 Order Comment: RESUL T(S) PREVIOUSLY REPORTED ON MANUAL REQUISITION DURINGDOWNTIME. Performed By: #### L 100.0100, L500.4050 ####[facility] [address] [place], [place], [address] Mean corpuscular hemoglobin (MCH) determinationOrdered By: Emili Lee on 03-19-2025 MCH (RBC) [Entitic mass] 29.7 pg Normal 27.0-32.0 [facility] Comment on above: Order Comment: RESUL T(S) PREVIOUSLY REPORTED ON MANUAL REQUISITION DURINGDOWNTIME. Performed By: #### L 100.0100, L500.4050 ####[facility] [address] [place], [place], [address] Mean corpuscular hemoglobin concentration (MCHC) determinationOrdered By: Emili Lee on 03-19-2025 MCHC (RBC) [Mass/Vol] 33.8 g/dL Normal 32-36 [facility] Comment on above: Delta: 31.3 on 03/18-1514 Order Comment: RESUL T(S) PREVIOUSLY REPORTED ON MANUAL REQUISITION DURINGDOWNTIME. Performed By: #### L 100.0100, L500.4050 ####[facility] [address] [place], [place], [address] Mean platelet volume determi nationOrdered By: Emili Lee on 03-19-2025 Platelet mean volume (Bld) [Entitic vol] 10.3 fL Normal 6.2-12.0 [facility] Comment on above: Order Comment: RESUL T(S) PREVIOUSLY REPORTED ON MANUAL REQUISITION DURINGDOWNTIME. Performed By: #### L 100.0100, L500.4050 ####[facility] [address] [facility] [place], [place], [address] Measurement, pHOrdered By: Katja Hernandez on 03-19-2025 pH (Unsp spec) 7.46 [pH] High 7.35-7.45 [facility] Monocyte percentageOrdered B y: Emili Lee on 03-19-2025 Monocytes/100 WBC (Bld) 4.2 % Normal 0-10 [facility] Comment on above: Order Comment: RESUL T(S) PREVIOUSLY REPORTED ON MANUAL REQUISITION DURINGDOWNTIME. Performed By: #### L 100.0100, L500.4050 ####[facility] [address] [place], [address] Neutrophil %Ordered By: Stephen Lee on 03-19-2025 Neutrophils/100 WBC (Bld) 83.0 % High 47-70 [facility] Comment on above: Order Comment: RESUL T(S) PREVIOUSLY REPORTED ON MANUAL REQUISITION DURINGDOWNTIME. Performed By: #### L 100.0100, L500.4050 ####[facility] [address] [place], [address] No Panel InformationOrdered By: Otilia Hernandez on 03-19-2025 ART [facility] Art Line [facility] AC [facility] Adult Vent [facility] 400.0 mL [facility] 14 [facility] 5 [facility] No Panel InformationOrdered By: Emili Lee on 03-19-2025 94 U/L High <32 [facility] Osmolality, Urineon 03-19-20 25 OSMOLALITY,UR 437 mOsm/KG Normal [facility] Comment on above: Order Comment: 00:58 03-19-25 Result Comment: Norm al Urine Reference Ranges Random: 50 - 1200 mOsm/kg H20 depending on fluid intake Random: >850 mOsm/kg after 12 hour fluid restriction 24 hour: 300 - 900 mOsm/kg H2O Performed By: #### L 500.9400, L501.7400, L501.1200, L502.0715 ####[facility] [address] [place], [address] Potassium measurement (mass/ volume)Ordered By: Emili Lee on 03-19-2025 Potassium (Unsp spec) [Mass/Vol] 3.5 mmol/L 3.3-5.1 [facility] RBC Auto (Bld) [#/Vol]Ordere d By: Emili Lee on 03-19-2025 RBC (Bld) [#/Vol] 5.28 10*6/uL 4.2-5.4 [facility] RDWOrdered By: Emili Lee on 03-19-2025 RDW 45.3 fl High 35.1-43.9 [facility] RESPIRATORY PANEL MOLECULARo n 03-19-2025 RP PANEL Normal [facility] Comment on above: Performed By: #### M 622.516 ####[facility] [address] [place], [place], [id number] Serum creatinine measurement (mass/volume)Ordered By: Emili Lee on 03-19-2025 Creatinine [Mass/Vol] 2.06 mg/dL High 0.70-1.20 [facility] Serum globulin measurementOr dered By: Emili Lee on 03-19-2025 Globulin (S) [Mass/Vol] 3.0 g/dL 2.2-4.2 [facility] Serum glucose measurement (m ass/volume)Ordered By: Emili Lee on 03-19-2025 Glucose [Mass/Vol] 88 mg/dL 70-99 [facility] Serum or plasma alanine gao otransferase (ALT) measurementOrdered By: Emili Lee on 03-19-2025 ALT [Catalytic activity/Vol] 64 U/L High <35 [facility] Serum or plasma albumin lisa urement (mass/volume)Ordered By: Emili Lee on 03-19-2025 Albumin [Mass/Vol] 3.6 g/dL 3.4-4.8 [facility] Serum or plasma albumin/glob ulin mass ratioOrdered By: Emili Lee on 03-19-2025 Albumin/Globulin [Mass ratio] 1.2 {ratio} 0.9-2.4 [facility] Serum or plasma alkaline bee sphatase measurementOrdered By: Emili Lee on 03-19-2025 ALP [Catalytic activity/Vol] 149 U/L High 35-104 [facility] Serum or plasma calcium lisa urement (mass/volume)Ordered By: Emili Lee on 03-19-2025 Calcium [Mass/Vol] 8.7 mg/dL 7.6-11.0 [facility] Serum or plasma urea nitroge n measurement (mass/volume)Ordered By: Emili Lee on 03-19-2025 Urea nitrogen [Mass/Vol] 54 mg/dL High 4-19 [facility] Shoulder min 2 Viewson 03-19 Shoulder min 2 Views Normal [facility] Sodium levelOrdered By: Stephen Lee on 03-19-2025 Sodium [Moles/Vol] 134 mmol/L 133-145 [facility] Total carbon dioxide measure mentOrdered By: Otilia Hernandez on 03-19-2025 CO2 [Moles/Vol] 36 mmol/L [facility] Total proteinOrdered By: Ketan Lee on 03-19-2025 Protein [Mass/Vol] 6.6 g/dL 5.9-8.4 [facility] Triglycerideson 03-19-2025 Triglyceride [Mass/Vol] 90 mg/dL Normal [facility] Comment on above: Order Comment: Comme nts: DC when propofol is d/c'dDC when propofol is d/c'd Result Comment: The drugs N-Acetylcysteine and Metamizole may falselydepress this assay.Normal range: <150 mg/dLBorderline High: 150-199 mg/dLHigh: 200-499 mg/dLVery High: >500 mg/dL Performed By: #### L 501.3620, L501.5000 ####[facility] [address] [place], [address] Urea Nitrogen, Urineon 03-19 URINE UREA 390 mg/dL Normal NO RANGE EST. [facility] Comment on above: Order Comment: 00:58 03-19-25 Performed By: #### L 500.9400, L501.7400, L501.1200, L502.0715 ####[facility] [address] [place], [address] Urine Cultureon 03-19-2025 URC Culture exhibits no growth. Normal [facility] Comment on above: Performed By: #### M 100.2200 ####[facility] [address] [place], [address] Urine Electrolytes- Randomon 03-19-2025 Chloride,URINE < 20 Normal Not Establ. [facility] Comment on above: Order Comment: 00:58 03-19-25 Performed By: #### L 500.9400, L501.7400, L501.1200, L502.0715 ####[facility] [address] [place], [address] Sodium (U) [Moles/Vol] 28 mmol/L Normal Not Establ. [facility] Comment on above: Order Comment: 00:58 03-19-25 Performed By: #### L 500.9400, L501.7400, L501.1200, L502.0715 ####[facility] [address] [place], [address] UR K 31.9 mmol/L Normal Not Establ. [facility] Comment on above: Order Comment: 00:58 03-19-25 Performed By: #### L 500.9400, L501.7400, L501.1200, L502.0715 ####[facility] [address] [place], [address] White blood cell (WBC) count Ordered By: Emili Lee on 03-19-2025 WBC (Bld) [#/Vol] 14.9 10*3/uL High 4.4-11.0 [facility] 12 Lead EKGon 03-18-2025 12 Lead EKG Normal [facility] Abdomen Single View (Portabl e)on 03-18-2025 Abdomen Single View (Portable) Normal [facility] Absolute lymphocyte countOrd ered By: Deion Levy on 03-18-2025 Lymphocytes Auto (Unsp spec) [#/Vol] 0.73 10*3/uL Low 0.83-4.51 [facility] Absolute neutrophil countOrd ered By: Deion Levy on 03-18-2025 Neutrophils (Bld) [#/Vol] 8.4 10*3/uL High 2.0-7.7 [facility] Activated partial thrombopla stin time (aPTT) in platelet poor plasma by coagulation aOrdered By: Deion Levy on 03-18-2025 aPTT Coag (PPP) [Time] 27.8 s 24.1-36.2 [facility] Anion gap in Serum or Plasma Ordered By: Deion Levy on 03-18-2025 Anion gap [Moles/Vol] 14 mmol/L 5-15 [facility] Automated lymphocyte count a s percentage of total leukocytesOrdered By: Deion Levy on 03-18-2025 Lymphocytes/100 WBC Auto (Unsp spec) 7.4 % Low 19-41 [facility] BUN/creatinine ratioOrdered By: Deion Levy on 03-18-2025 Urea nitrogen/Creatinine [Mass ratio] 22.8 mg/mg High 10-20 [facility] Basophil percentageOrdered B y: Deion Levy on 03-18-2025 Basophils/100 WBC (Bld) 0.4 % 0-1 [facility] Bilirubin Test strip Ql (U)O rdered By: Deionfreida Levy on 03-18-2025 Bilirubin Ql (U) Negative Negative [facility] Bilirubin, totalOrdered By: Deionfreida Levy on 03-18-2025 Bilirubin [Mass/Vol] 0.35 mg/dL 0.00-1.30 [facility] Blood Gases by CPSon 025 Base excess Calc (Bld) [Moles/Vol] 4 mmol/L High -2 to +2 [facility] Comment on above: Performed By: #### L 9000.0800 ####[facility] [address] [place], [address] Blood Gas Type ART Normal [facility] Comment on above: Performed By: #### L 9000.0800 ####[facility] [address] [place], [address] CO2 [Moles/Vol] 32 mmol/L Normal [facility] Comment on above: Performed By: #### L 9000.0800 ####[facility] [address] [place], [address] FI02 40.0 Normal [facility] Comment on above: Performed By: #### L 9000.0800 ####[facility] [address] [place], [address] HCO3 (Bld) [Moles/Vol] 30.3 mmol/L High 22-26 [facility] Comment on above: Performed By: #### L 9000.0800 ####[facility] [address] [place], [address] Mode AC/VC Normal [facility] Comment on above: Performed By: #### L 9000.0800 ####[facility] [address] [place], [address] O2 Delivery Dev Adult Vent Normal [facility] Comment on above: Performed By: #### L 9000.0800 ####[facility] [address] [place], [address] pCO2 59.2 mmHg High 35-45 [facility] Comment on above: Performed By: #### L 9000.0800 ####[facility] [address] [place], [address] PEEP 5 Normal [facility] Comment on above: Performed By: #### L 9000.0800 ####[facility] [address] [place], [address] pH (Bld) 7.32 [pH] Low 7.35-7.45 [facility] Comment on above: Performed By: #### L 9000.0800 ####[facility] [address] [place], [address] PO2 101 mmHG High 75-100 [facility] Comment on above: Performed By: #### L 9000.0800 ####[facility] [address] [place], [address] RR 14 Normal [facility] Comment on above: Performed By: #### L 9000.0800 ####[facility] [address] [place], [address] SITE L Brach Normal [facility] Comment on above: Performed By: #### L 9000.0800 ####[facility] [address] [place], [address] SO2 97 Normal 95-99 [facility] Comment on above: Performed By: #### L 9000.0800 ####[facility] [address] [place], [address] Vt 400.0 mL Normal [facility] Comment on above: Performed By: #### L 9000.0800 ####[facility] [address] [place], [address] Blood base excess determinat ionOrdered By: Emili Lee on 03-18-2025 Base excess Calc (BldV) [Moles/Vol] 4 mmol/L High -2-2 [facility] Blood bicarbonate measuremen tOrdered By: Emili Lee on 03-18-2025 HCO3 (Bld) [Moles/Vol] 30.3 mmol/L High 22-26 [facility] Blood cultureOrdered By: Deion Levy on 03-18-2025 Bacteria identified Cx Nom (Bld) No growth in 5 days. [facility] Bacteria identified Cx Nom (Bld) No growth in 5 days. [facility] Brain/Head without Contrasto n 03-18-2025 Brain/Head without Contrast Normal [facility] CBC W/Diff, Automatedon 09- Absolute Lymph 0.73 X10 3/uL Low 0.83-4.51 [facility] Comment on above: Performed By: #### L 501.9520, L500.4050, L100.0100 ####[facility] [address] [place], [address] Absolute Neut 8.4 X10 3/uL High 2.0-7.7 [facility] Comment on above: Performed By: #### L 501.9520, L500.4050, L100.0100 ####[facility] [address] [place], [address] Basophils/100 WBC (Bld) 0.4 % Normal 0-1 [facility] Comment on above: Performed By: #### L 501.9520, L500.4050, L100.0100 ####[facility] [address] [place], [address] Eosinophils/100 WBC (Bld) 0.0 % Normal 0-5 [facility] Comment on above: Performed By: #### L 501.9520, L500.4050, L100.0100 ####[facility] [address] [place], [address] Erythrocyte distribution width (RBC) [Ratio] 14.6 % Normal 11.6-14.6 [facility] Comment on above: Performed By: #### L 501.9520, L500.4050, L100.0100 ####[facility] [address] [place], [address] Hematocrit (Bld) [Volume fraction] 50.5 % High 37-47 [facility] Comment on above: Performed By: #### L 501.9520, L500.4050, L100.0100 ####[facility] [address] [place], [address] Hemoglobin (Bld) [Mass/Vol] 15.8 g/dL High 12.0-15.0 [facility] Comment on above: Performed By: #### L 501.9520, L500.4050, L100.0100 ####[facility] [address] [place], [address] IG% 0.900 Normal 0.0-0.9 [facility] Comment on above: Result Comment: IG% - Immature Granulocytes (promyelocytes, myelocytes andmetamyelocytes) > 1% indicates that a LEFT SHIFT is Present. Performed By: #### L 501.9520, L500.4050, L100.0100 ####[facility] [address] [place], [address] Lymphocytes/100 WBC (Bld) 7.4 % Low 19-41 [facility] Comment on above: Performed By: #### L 501.9520, L500.4050, L100.0100 ####[facility] [address] [place], [address] MCH (RBC) [Entitic mass] 29.3 pg Normal 27.0-32.0 [facility] Comment on above: Performed By: #### L 501.9520, L500.4050, L100.0100 ####[facility] [address] [place], [address] MCHC (RBC) [Mass/Vol] 31.3 g/dL Low 32-36 [facility] Comment on above: Performed By: #### L 501.9520, L500.4050, L100.0100 ####[facility] [address] [place], [address] MCV (RBC) [Entitic vol] 93.5 fL Normal 81-99 [facility] Comment on above: Performed By: #### L 501.9520, L500.4050, L100.0100 ####[facility] [address] [place], [address] Monocytes/100 WBC (Bld) 7.0 % Normal 0-10 [facility] Comment on above: Performed By: #### L 501.9520, L500.4050, L100.0100 ####[facility] [address] [place], [address] Neutrophils/100 WBC (Bld) 84.3 % High 47-70 [facility] Comment on above: Performed By: #### L 501.9520, L500.4050, L100.0100 ####[facility] [address] [place], [address] Nucleated RBC (Bld) [#/Vol] 0 10*3/uL Normal 0-5 [facility] Comment on above: Performed By: #### L 501.9520, L500.4050, L100.0100 ####[facility] [address] [place], [address] Platelet mean volume (Bld) [Entitic vol] 10.4 fL Normal 6.2-12.0 [facility] Comment on above: Performed By: #### L 501.9520, L500.4050, L100.0100 ####[facility] [address] [place], [address] Platelets (Bld) [#/Vol] 218 10*3/uL Normal 150-450 [facility] Comment on above: Performed By: #### L 501.9520, L500.4050, L100.0100 ####[facility] [address] [place], [address] RBC (Bld) [#/Vol] 5.40 10*6/uL Normal 4.2-5.4 [facility] Comment on above: Performed By: #### L 501.9520, L500.4050, L100.0100 ####[facility] [address] [place], [address] RDW SD 49.9 fl High 35.1-43.9 [facility] Comment on above: Performed By: #### L 501.9520, L500.4050, L100.0100 ####[facility] [address] [place], [address] WBC (Bld) [#/Vol] 9.9 10*3/uL Normal 4.4-11.0 [facility] Comment on above: Performed By: #### L 501.9520, L500.4050, L100.0100 ####[facility] [address] [place], [address] CRPon 03-18-2025 C-REACTIVE PROT 5.32 mg/L High 0.0-3.0 [facility] Comment on above: Performed By: #### L 101.9900, L509.7001, L501.0010 ####[facility] [address] [place], [address] CTA Abd/Pelvis W/WO Contrast on 03-18-2025 CTA Abd/Pelvis W/WO Contrast Normal [facility] Carbon dioxide, total [Moles /volume] in Central venous bloodOrdered By: Deion Levy on 03-18-2025 CO2 [Moles/Vol] 32.8 mmol/L High 21.0-32.0 [facility] Chest 1 View (Portable)on Chest 1 View (Portable) Normal [facility] Chest 1 View (Portable) Normal [facility] Chest PA and Lateralon 03-18 Chest PA and Lateral Normal [facility] Chloride assayOrdered By: Mai Levy on 03-18-2025 Chloride [Moles/Vol] 84 mmol/L Low 98-108 [facility] Comprehensive Metabolic Prof ilon 03-18-2025 Albumin [Mass/Vol] 4.1 g/dL Normal 3.4-4.8 [facility] Comment on above: Performed By: #### L 501.9520, L500.4050, L100.0100 ####[facility] [address] [place], [address] Albumin/Globulin [Mass ratio] 1.1 {ratio} Normal 0.9-2.4 [facility] Comment on above: Performed By: #### L 501.9520, L500.4050, L100.0100 ####[facility] [address] [place], [address] ALK PHOS 162 U/L High 35-104 [facility] Comment on above: Performed By: #### L 501.9520, L500.4050, L100.0100 ####[facility] [address] [place], [address] ALT [Catalytic activity/Vol] 61 U/L High <=34 [facility] Comment on above: Performed By: #### L 501.9520, L500.4050, L100.0100 ####[facility] [address] [place], [address] AST [Catalytic activity/Vol] 86 U/L High <=31 [facility] Comment on above: Performed By: #### L 501.9520, L500.4050, L100.0100 ####[facility] [address] [place], [address] Bilirubin [Mass/Vol] 0.35 mg/dL Normal 0.00-1.30 [facility] Comment on above: Performed By: #### L 501.9520, L500.4050, L100.0100 ####[facility] [address] [place], [address] BUN/CRE 22.8 RATIO High 10-20 [facility] Comment on above: Performed By: #### L 501.9520, L500.4050, L100.0100 ####[facility] [address] [place], [address] Calcium [Mass/Vol] 9.7 mg/dL Normal 7.6-11.0 [facility] Comment on above: Performed By: #### L 501.9520, L500.4050, L100.0100 ####[facility] [address] [place], [address] Chloride [Moles/Vol] 84 mmol/L Low 98-108 [facility] Comment on above: Performed By: #### L 501.9520, L500.4050, L100.0100 ####[facility] [address] [place], [address] CO2 [Moles/Vol] 32.8 mmol/L High 21.0-32.0 [facility] Comment on above: Performed By: #### L 501.9520, L500.4050, L100.0100 ####[facility] [address] [place], [address] Creatinine [Mass/Vol] 2.22 mg/dL High 0.70-1.20 [facility] Comment on above: Performed By: #### L 501.9520, L500.4050, L100.0100 ####[facility] [address] [place], [address] ECRCL 27.85 ml/min Low 50-250 [facility] Comment on above: Performed By: #### L 501.9520, L500.4050, L100.0100 ####[facility] [address] [place], [address] GAP 14 Normal 5-15 [facility] Comment on above: Performed By: #### L 501.9520, L500.4050, L100.0100 ####[facility] [address] [place], [address] GFR/1.73 sq M.predicted among non-blacks MDRD (S/P/Bld) [Vol rate/Area] 22 mL/min/{1.73_m2} Low >60 [facility] Comment on above: Result Comment: mL/m in/1.73m2 CKD-EPI Creatinine Equation (2020) Performed By: #### L 501.9520, L500.4050, L100.0100 ####[facility] [address] [place], [address] Globulin (S) [Mass/Vol] 3.6 g/dL Normal 2.2-4.2 [facility] Comment on above: Performed By: #### L 501.9520, L500.4050, L100.0100 ####[facility] [address] [place], [address] Glucose [Mass/Vol] 115 mg/dL High 70-99 [facility] Comment on above: Performed By: #### L 501.9520, L500.4050, L100.0100 ####[facility] [address] [place], [address] Potassium [Moles/Vol] 4.4 mmol/L Normal 3.3-5.1 [facility] Comment on above: Performed By: #### L 501.9520, L500.4050, L100.0100 ####[facility] [address] [place], [address] Sodium [Moles/Vol] 131 mmol/L Low 133-145 [facility] Comment on above: Performed By: #### L 501.9520, L500.4050, L100.0100 ####[facility] [address] [place], [address] T PROT 7.7 g/dL Normal 5.9-8.4 [facility] Comment on above: Performed By: #### L 501.9520, L500.4050, L100.0100 ####[facility] [address] [place], [address] Urea nitrogen [Mass/Vol] 51 mg/dL High 4-19 [facility] Comment on above: Performed By: #### L 501.9520, L500.4050, L100.0100 ####[facility] [address] [place], [address] Emergency Department Summary on 03-18-2025 Emergency Department Summary Normal [facility] Eosinophil percentageOrdered By: Deion Levy on 03-18-2025 Eosinophils/100 WBC (Bld) 0.0 % 0-5 [facility] Erythrocyte Sed Rateon 03-18 SED RATE 37 mm/hr High 0-30 [facility] Comment on above: Performed By: #### L 101.9900, L509.7001, L501.6710 ####[facility] [address] [place], [address] Erythrocyte distribution wid th ratioOrdered By: Deion Levy on 03-18-2025 Erythrocyte distribution width (RBC) [Ratio] 14.6 % 11.6-14.6 [facility] Erythrocyte distribution wid th standard deviationOrdered By: Deion Levy on 03-18-2025 Erythrocyte distribution width (RBC) [Ratio] 49.9 fl High 35.1-43.9 [facility] Erythrocyte sedimentation ra teOrdered By: Emili Lee on 03-18-2025 ESR (Bld) [Velocity] 37 mm/h High 0-30 [facility] Glomerular filtration rate ( GFR) estimation/1.73 sq m using serum, plasma, or whole bOrdered By: Deion Levy on 03-18-2025 GFR/1.73 sq M.predicted among non-blacks MDRD (S/P/Bld) [Vol rate/Area] 22 mL/min/{1.73_m2} Low >60 [facility] Comment on above: mL/min/1.73m2 CKD-EP I Creatinine Equation (2020) [facility]dered By: Otilia Hernandez on 03-18-2025 Glucose [Mass/Vol] 118 mg/dL High 74-106 [facility] Gram stainOrdered By: Deion johnson on 03-18-2025 Microscopic observation Gram stain Nom (Unsp spec) [facility] Microscopic observation Gram stain Nom (Unsp spec) [facility] H AND P Exam - Hospitaliston 03-18-2025 H&P Exam - Hospitalist Normal [facility] Hematocrit Auto (Bld) [Volum e fraction]Ordered By: Deion Levy on 03-18-2025 Hematocrit (Bld) [Volume fraction] 50.5 % High 37-47 [facility] Hemoglobin measurementOrdere d By: Deion Levy on 03-18-2025 Hemoglobin (Bld) [Mass/Vol] 15.8 g/dL High 12.0-15.0 [facility] Immature granulocytes/100 WB C Auto (Bld)Ordered By: [facility] on 03-18-2025 Immature granulocytes/100 WBC (Bld) 0.900 % 0.0-0.9 [facility] Comment on above: IG% - Immature Granu locytes (promyelocytes, myelocytes and metamyelocytes) > 1% indicates that a LEFT SHIFT is Present. International normalized rat io (INR) calculationOrdered By: [facility] on 03-18-2025 INR Coag (Bld) [Relative time] 0.9 {INR} [facility] Ketones Test strip Ql (U)Ord ered By: [facility] on 03-18-2025 Ketones Ql (U) Negative Negative [facility] L509.7001on 03-18-2025 Procalcitonin 0.10 ng/mL Normal <=0.10 [facility] Comment on above: Result Comment: Inte rpretation:<0.10-0.25 ng/mL: Antibiotic therapy discouraged. Bacterialinfection unlikely.0.25-0.50 ng/mL: Antibiotic therapy encouraged. Bacterialinfection possible.>0.50 ng/mL: Antibiotic therapy strongly encouraged.Suggestive of presence of bacterial infection.PCT should always be interpreted in the clinical context ofthe patient. Therefore, clinicians should use the PCTresults in conjunction with other laboratory findings andclinical signs of the patient. Performed By: #### L 101.9900, L509.7001, L501.6710 ####[facility] [address] [place], [place], [address] Laboratory - Chemistry and C hemistry - challengeOrdered By: [facility] on 03-18-2025 AST [Catalytic activity/Vol] 86 U/L High <32 [facility] Lactic Acidon 03-18-2025 Lactate [Moles/Vol] 1.1 mmol/L Normal 0.0-2.0 [facility] Comment on above: Order Comment: Y Performed By: #### L 300.3900, L300.4310, L503.6005, M200.1000 ####[facility] [address] [place], [address] Lactic acid measurementOrder ed By: Deion Levy on 03-18-2025 Lactate [Moles/Vol] 1.1 mmol/L 0.0-2.0 [facility] MCV (mean corpuscular volume ) determinationOrdered By: Deion Levy on 03-18-2025 MCV (RBC) [Entitic vol] 93.5 fL 81-99 [facility] Mean corpuscular hemoglobin (MCH) determinationOrdered By: Deion Levy on 03-18-2025 MCH (RBC) [Entitic mass] 29.3 pg 27.0-32.0 [facility] Mean corpuscular hemoglobin concentration (MCHC) determinationOrdered By: Deionfreida Levy on 03-18-2025 MCHC (RBC) [Mass/Vol] 31.3 g/dL Low 32-36 [facility] Mean platelet volume determi nationOrdered By: Deionfreida Levy on 03-18-2025 Platelet mean volume (Bld) [Entitic vol] 10.4 fL 6.2-12.0 [facility] Measurement, pHOrdered By: Wenceslao Lee on 03-18-2025 pH (Unsp spec) 7.32 [pH] Low 7.35-7.45 [facility] Microbial respiratory cultur eOrdered By: Deion Levy on 03-18-2025 Microorganism identified Cx Nom (Unsp spec) or Staphylococcus aureus isolated. [facility] Microorganism identified Cx Nom (Unsp spec) or Staphylococcus aureus isolated. [facility] Microscopic analysis of urin e for red blood cells (RBC)Ordered By: Deion Levy on 03-18-2025 Microscopic analysis of urine for red blood cells (RBC) 0-5 SEEN /hpf 0-5 [facility] Monocyte percentageOrdered B y: Deion Levy on 03-18-2025 Monocytes/100 WBC (Bld) 7.0 % 0-10 [facility] Mucus LM Ql (Urine sed)Order ed By: Deion Levy on 03-18-2025 Mucus Ql (Urine sed) 0 SEEN /hpf [facility] Natriuretic peptide.B prohor mac N-Terminal [Mass/volume] in Serum or PlasmaOrdered By: Emili Lee on 03-18-2025 Natriuretic peptide.B prohormone N-Terminal [Mass/Vol] 2155 pg/mL High <1800 [facility] Comment on above: Heart Failure Unlike ly: < 300 pg/mLHeart Failure Likely< 50 Years: > 450 pg/mL50-75 Years: > 900 pg/mL>75 Years: > 1800 pg/mL Neutrophil percentageOrdered By: Deion Levy on 03-18-2025 Neutrophils/100 WBC (Bld) 84.3 % High 47-70 [facility] Nitrite Test strip Ql (U)Ord ered By: Deion Levy on 03-18-2025 Nitrite Ql (U) Negative Negative [facility] No Panel InformationOrdered By: Emili Lee on 03-18-2025 Bedside Blood Gas PEEP 5 [facility] Blood Gas Respiration Rate 14 [facility] Blood Gas Sample Site L Brach [facility] Blood Gas Specimen Type ART [facility] Blood Gas Tidal Volume 400.0 mL [facility] Blood Gas Vent Mode AC/VC [facility] Oxygen Delivery Device Adult Vent [facility] Nucleated red blood cell per centageOrdered By: Deion Levy on 03-18-2025 Nucleated RBC/100 WBC (Bld) [Ratio] 0 % 0-5 [facility] Osmolality urOrdered By: Ketan Lee on 03-18-2025 Osmolality (U) [Osmolality] 437 mOsm/KG >50 [facility] Partial Thromboplast Timeon 03-18-2025 aPTT Coag (Bld) [Time] 27.8 s Normal 24.1-36.2 [facility] Comment on above: Performed By: #### L 300.3900, L300.4310, L503.6005, M200.1000 ####[facility] [address] [place], [address] Platelet countOrdered By: Mai Levy on 03-18-2025 Platelets (Bld) [#/Vol] 218 10*3/uL 150-450 [facility] Potassium measurement (mass/ volume)Ordered By: Deion Levy on 03-18-2025 Potassium (Unsp spec) [Mass/Vol] 4.4 mmol/L 3.3-5.1 [facility] Pro- Brain NATRIURETIC PEPTI Rita 03-18-2025 Natriuretic peptide B (Bld) [Mass/Vol] 2155 pg/mL High <=1800 [facility] Comment on above: Result Comment: Hear t Failure Unlikely: < 300 pg/mLHeart Failure Likely< 50 Years: > 450 pg/mL50-75 Years: > 900 pg/mL>75 Years: > 1800 pg/mL Performed By: #### L 503.7506 ####[facility] [address] [place], [place], [address] Procalcitonin [Mass/volume] in Serum or Plasma by ImmunoassayOrdered By: Emili Lee on 03-18-2025 Procalcitonin IA [Mass/Vol] 0.10 ng/mL <0.11 [facility] Comment on above: Interpretation:<0.10 -0.25 ng/mL: Antibiotic [...] Protein Ql (U) 30 mg/dl High Negative [facility] Prothrombin Time w/INRon INR Coag (PPP) [Relative time] 0.9 {INR} Normal [facility] Comment on above: Performed By: #### L 300.3900, L300.4310, L503.6005, M200.1000 ####[facility] [address] [place], [place], [id number] PT Coag (PPP) [Time] 12.4 s Normal 11.7-14.9 [facility] Comment on above: Performed By: #### L 300.3900, L300.4310, L503.6005, M200.1000 ####[facility] [address] [place], [address] Prothrombin timeOrdered By: Deion Levy on 03-18-2025 PT Coag (PPP) [Time] 12.4 s 11.7-14.9 [facility] RBC Auto (Bld) [#/Vol]Ordere d By: Deion Levy on 03-18-2025 RBC (Bld) [#/Vol] 5.40 10*6/uL 4.2-5.4 [facility] Random urine creatinine lisa urement (mass/volume)Ordered By: Emili Lee on 03-18-2025 Creatinine Unsp time (U) [Mass/Vol] 83.80 mg/dL 28.00-217.0 0 [facility] Respiratory pathogens detect ion panel by molecular detection methodOrdered By: Emili Lee on 03-18-2025 Respiratory pathogens DNA and RNA panel RANJIT+probe (Resp) [facility] Respiratory pathogens DNA and RNA panel RANJIT+probe (Resp) [facility] Serum creatinine measurement (mass/volume)Ordered By: Deion Levy on 03-18-2025 Creatinine [Mass/Vol] 2.22 mg/dL High 0.70-1.20 [facility] Serum globulin measurementOr dered By: Deion Levy on 03-18-2025 Globulin (S) [Mass/Vol] 3.6 g/dL 2.2-4.2 [facility] Serum glucose measurement (m ass/volume)Ordered By: Deion Levy on 03-18-2025 Glucose [Mass/Vol] 115 mg/dL High 70-99 [facility] Serum or plasma C reactive p rotein measurement (mass/volume)Ordered By: Emili Lee on 03-18-2025 CRP [Mass/Vol] 5.32 mg/L High 0.0-3.0 [facility] Serum or plasma alanine gao otransferase (ALT) measurementOrdered By: Deionfreida Levy on 03-18-2025 ALT [Catalytic activity/Vol] 61 U/L High <35 [facility] Serum or plasma albumin lisa urement (mass/volume)Ordered By: Deion Levy on 03-18-2025 Albumin [Mass/Vol] 4.1 g/dL 3.4-4.8 [facility] Serum or plasma albumin/glob ulin mass ratioOrdered By: Deion Levy on 03-18-2025 Albumin/Globulin [Mass ratio] 1.1 {ratio} 0.9-2.4 [facility] Serum or plasma alkaline bee sphatase measurementOrdered By: Deion Levy on 03-18-2025 ALP [Catalytic activity/Vol] 162 U/L High 35-104 [facility] Serum or plasma calcium lisa urement (mass/volume)Ordered By: Deion Levy on 03-18-2025 Calcium [Mass/Vol] 9.7 mg/dL 7.6-11.0 [facility] Serum or plasma creatine kin ase activityOrdered By: Claire Mayorga on 03-18-2025 CK [Catalytic activity/Vol] 137 U/L 24-195 [facility] Serum or plasma urea nitroge n measurement (mass/volume)Ordered By: Deion Levy on 03-18-2025 Urea nitrogen [Mass/Vol] 51 mg/dL High 4-19 [facility] Sodium levelOrdered By: Deion Levy on 03-18-2025 Sodium [Moles/Vol] 131 mmol/L Low 133-145 [facility] Squamous epithelial cells de tection in urine sediment by light microscopyOrdered By: Deion Levy on 03-18-2025 Epithelial cells.squamous LM Ql (Urine sed) 0-5 SEEN /hpf 5-10 [facility] TSH DL <= 0.005 mIU/L QnOrde red By: Deion Levy on 03-18-2025 TSH Qn 1.650 uIU/mL 0.300-4.200 [facility] Thyroid Stim Hormone (TSH)on 03-18-2025 TSH 1.650 uIU/mL Normal 0.300-4.200 [facility] Comment on above: Performed By: #### L 501.9548, L500.4050, L100.0100 ####[facility] [address] [place], [address] Total carbon dioxide measure mentOrdered By: Emili Lee on 03-18-2025 CO2 [Moles/Vol] 32 mmol/L [facility] Total proteinOrdered By: Deion Levy on 03-18-2025 Protein [Mass/Vol] 7.7 g/dL 5.9-8.4 [facility] Transitional cells detection in urine sediment by light microscopyOrdered By: Deion Levy on 03-18-2025 Transitional cells LM Ql (Urine sed) 0-5 SEEN /hpf 0-5 [facility] Triglycerides measurementOrd ered By: Claire Tierra on 03-18-2025 Triglyceride [Mass/Vol] 90 mg/dL <199 [facility] Comment on above: The drugs N-Acetylcy steine and Metamizole may falsely depress this assay. Normal range: <150 mg/dLBorderline High: 150-199 mg/dLHigh: 200-499 mg/dLVery High: >500 mg/dL Urinalysis, Completeon 03-18 BACTERIA 1+ /hpf Normal None Seen [facility] Comment on above: Order Comment: SOLITARIO TER SPECIMEN Performed By: #### L 400.0001 ####[facility] [address] [place], [address] EPI,TRANSITION 0-5 SEEN Normal 0-5 [facility] Comment on above: Order Comment: SOLITARIO TER SPECIMEN Performed By: #### L 400.0001 ####[facility] [address] [place], [address] WBC 0-5 SEEN Normal 0-5 [facility] Comment on above: Order Comment: SOLITARIO TER SPECIMEN Performed By: #### L 400.0001 ####[facility] [address] [place], [address] EPI,SQUAMOUS 0-5 SEEN Normal 5-10 [facility] Comment on above: Order Comment: SOLITARIO TER SPECIMEN Performed By: #### L 400.0001 ####[facility] [address] [place], [address] RBC 0-5 SEEN Normal 0-5 [facility] Comment on above: Order Comment: SOLITARIO TER SPECIMEN Performed By: #### L 400.0001 ####[facility] [address] [place], [address] Mucus Ql (Urine sed) 0 SEEN Normal [facility] Comment on above: Order Comment: SOLITARIO PINK SPECIMEN Performed By: #### L 400.0001 ####[facility] [address] [place], [address] Urine clarityOrdered By: Deion Levy on 03-18-2025 Clarity (U) Clear Clear [facility] Urine color determinationOrd ered By: Deion Levy on 03-18-2025 Color (U) Yellow Yellow [facility] Urine cultureOrdered By: Deion Levy on 03-18-2025 Bacteria identified Cx Nom (U) Culture exhibits no growth. [facility] Bacteria identified Cx Nom (U) Culture exhibits no growth. [facility] Urine glucose detectionOrder ed By: Deion Levy on 03-18-2025 Glucose Ql (U) Normal mg/dl Normal [facility] Urine leukocyte esterase det ection by dipstickOrdered By: Deion Levy on 03-18-2025 Leukocyte esterase Test strip Ql (U) Negative Negative [facility] Urine pHOrdered By: Deion guan on 03-18-2025 pH (U) 6.0 [pH] 5.0 - 8.0 [facility] Urine potassium measurement (moles/volume)Ordered By: Emili Lee on 03-18-2025 Potassium (U) [Moles/Vol] 31.9 mmol/L Not Establ. [facility] Urine sediment bacteria coun t by microscopy (number/high power field)Ordered By: Deion Levy on 03-18-2025 Bacteria LM.HPF (Urine sed) [#/Area] 1 /[HPF] None Seen [facility] Urine sodium measurement (mo les/volume)Ordered By: Emili Lee on 03-18-2025 Sodium (U) [Moles/Vol] 28 mmol/L Not Establ. [facility] Urine specific gravity measu rementOrdered By: Deion Levy on 03-18-2025 Specific gravity (U) [Rel density] 1.015 1.002-1.030 [facility] Urine urobilinogen measureme ntOrdered By: Deion Levy on 03-18-2025 Urobilinogen Ql (U) Normal mg/dl Normal [facility] White blood cell (WBC) count Ordered By: Deion Levy on 03-18-2025 WBC (Bld) [#/Vol] 9.9 10*3/uL 4.4-11.0 [facility] White blood cell countOrdere d By: Deion Levy on 03-18-2025 White blood cell count 0-5 SEEN /hpf 0-5 [facility] CTA Chst, Abd, Pel W and/or WOon 03-17-2025 CTA Chst, Abd, Pel W and/or WO Normal [facility] Anion gap in Serum or Plasma Ordered By: Kamar Grimes on 03-10-2025 Anion gap [Moles/Vol] 12 mmol/L -15 [facility] BUN/creatinine ratioOrdered By: Kamar Grimes on 03-10-2025 Urea nitrogen/Creatinine [Mass ratio] 27.2 mg/mg High 10-20 [facility] Basic Metabolic Profile (BMP )on 03-10-2025 BUN/CRE 27.2 RATIO High 10-20 [facility] Comment on above: Order Comment: Order Date: 03/05/25Order Info: 0667- - BMP Performed By: #### L 500.2500 ####[facility] [address] [place], [address] Calcium [Mass/Vol] 9.4 mg/dL Normal 7.6-11.0 [facility] Comment on above: Order Comment: Order Date: 03/05/25Order Info: 0667- - BMP Performed By: #### L 500.2500 ####[facility] [address] [place], [address] Chloride [Moles/Vol] 95 mmol/L Low 98-108 [facility] Comment on above: Order Comment: Order Date: 03/05/25Order Info: 0667- - BMP Performed By: #### L 500.2500 ####[facility] [address] [place], [address] CO2 [Moles/Vol] 31.4 mmol/L Normal 21.0-32.0 [facility] Comment on above: Order Comment: Order Date: 03/05/25Order Info: 666-07 - BMP Performed By: #### L 500.2500 ####[facility] [address] [place], [address] Creatinine [Mass/Vol] 1.03 mg/dL Normal 0.70-1.20 [facility] Comment on above: Order Comment: Order Date: 03/05/25Order Info: 666-07 - BMP Performed By: #### L 500.2500 ####[facility] [address] [place], [address] GAP 12 Normal 5-15 [facility] Comment on above: Order Comment: Order Date: 03/05/25Order Info: 666-07 - BMP Performed By: #### L 500.2500 ####[facility] [address] [place], [address] GFR/1.73 sq M.predicted among non-blacks MDRD (S/P/Bld) [Vol rate/Area] 56 mL/min/{1.73_m2} Low >60 [facility] Comment on above: Order Comment: Order Date: 03/05/25Order Info: 666-07 - BMP Result Comment: mL/m in/1.73m2 CKD-EPI Creatinine Equation (2020) Performed By: #### L 500.2500 ####[facility] [address] [place], [address] Glucose [Mass/Vol] 79 mg/dL Normal 70-99 [facility] Comment on above: Order Comment: Order Date: 03/05/25Order Info: 666-07 - BMP Performed By: #### L 500.2500 ####[facility] [address] [place], [address] Potassium [Moles/Vol] 4.3 mmol/L Normal 3.3-5.1 [facility] Comment on above: Order Comment: Order Date: 03/05/25Order Info: 0667-1 - BMP Performed By: #### L 500.2500 ####[facility] [address] [place], [place], [address] Sodium [Moles/Vol] 138 mmol/L Normal 133-145 [facility] Comment on above: Order Comment: Order Date: 03/05/25Order Info: 0667 - BMP Performed By: #### L 500.2500 ####[facility] [address] [place], [address] Urea nitrogen [Mass/Vol] 28 mg/dL High 4-19 [facility] Comment on above: Order Comment: Order Date: 03/05/25Order Info: 0667- - BMP Performed By: #### L 500.2500 ####[facility] [address] [place], [address] Carbon dioxide, total [Moles /volume] in Central venous bloodOrdered By: Kamar Grimes on 03-10-2025 CO2 [Moles/Vol] 31.4 mmol/L 21.0-32.0 [facility] Chloride assayOrdered By: Jennifer Grimes on 03-10-2025 Chloride [Moles/Vol] 95 mmol/L Low 98-108 [facility] Glomerular filtration rate ( GFR) estimation/1.73 sq m using serum, plasma, or whole bOrdered By: Kamar Grimes on 03-10-2025 GFR/1.73 sq M.predicted among non-blacks MDRD (S/P/Bld) [Vol rate/Area] 56 mL/min/{1.73_m2} Low >60 [facility] Comment on above: mL/min/1.73m2 CKD-EP I Creatinine Equation (2020) Potassium measurement (mass/ volume)Ordered By: Kamar Grimes on 03-10-2025 Potassium (Unsp spec) [Mass/Vol] 4.3 mmol/L 3.3-5.1 [facility] Serum creatinine measurement (mass/volume)Ordered By: Kamar Grimes on 03-10-2025 Creatinine [Mass/Vol] 1.03 mg/dL 0.70-1.20 [facility] Serum glucose measurement (m ass/volume)Ordered By: Kamar Grimes on 03-10-2025 Glucose [Mass/Vol] 79 mg/dL 70-99 [facility] Serum or plasma calcium lisa urement (mass/volume)Ordered By: Kamar Grimes on 03-10-2025 Calcium [Mass/Vol] 9.4 mg/dL 7.6-11.0 [facility] Serum or plasma urea nitroge n measurement (mass/volume)Ordered By: Kamar Grimes on 03-10-2025 Urea nitrogen [Mass/Vol] 28 mg/dL High 4-19 [facility] Sodium levelOrdered By: Kamar Grimes on 03-10-2025 Sodium [Moles/Vol] 138 mmol/L 133-145 [facility] Anion gap in Serum or Plasma Ordered By: Kamar Grimes on 03-04-2025 Anion gap [Moles/Vol] 10 mmol/L 5-15 [facility] BUN/creatinine ratioOrdered By: Kamar Grimes on 03-04-2025 Urea nitrogen/Creatinine [Mass ratio] 36.5 mg/mg High 10-20 [facility] Bilirubin, totalOrdered By: Kamar Grimes on 03-04-2025 Bilirubin [Mass/Vol] 0.35 mg/dL 0.00-1.30 [facility] Carbon dioxide, total [Moles /volume] in Central venous bloodOrdered By: Kamar Grimes on 03-04-2025 CO2 [Moles/Vol] 34.8 mmol/L High 21.0-32.0 [facility] Chloride assayOrdered By: Jennifer Grimes on 03-04-2025 Chloride [Moles/Vol] 95 mmol/L Low 98-108 [facility] Comprehensive Metabolic Prof ilon 03-04-2025 Albumin [Mass/Vol] 3.7 g/dL Normal 3.4-4.8 [facility] Comment on above: Order Comment: Order Date: 02/18/25Order Info: [id number] - CMPOrder Info: [id number] - MG Performed By: #### L 500.4050, L501.5200 ####[facility] [address] [place], [address] Albumin/Globulin [Mass ratio] 1.3 {ratio} Normal 0.9-2.4 [facility] Comment on above: Order Comment: Order Date: 02/18/25Order Info: [id number] - CMPOrder Info: [id number] - MG Performed By: #### L 500.4050, L501.5200 ####[facility] [address] [place], [address] ALK PHOS 125 U/L High 35-104 [facility] Comment on above: Order Comment: Order Date: 02/18/25Order Info: 86-1 - CMPOrder Info: [id number] - MG Performed By: #### L 500.4050, L501.5200 ####[facility] [address] [place], [address] ALT [Catalytic activity/Vol] 22 U/L Normal <=34 [facility] Comment on above: Order Comment: Order Date: 02/18/25Order Info: [id number] - CMPOrder Info: [id number] - MG Performed By: #### L 500.4050, L501.5200 ####[facility] [address] [place], [address] AST [Catalytic activity/Vol] 28 U/L Normal <=31 [facility] Comment on above: Order Comment: Order Date: 02/18/25Order Info: [id number] - CMPOrder Info: [id number] - MG Performed By: #### L 500.4050, L501.5200 ####[facility] [address] [place], [address] Bilirubin [Mass/Vol] 0.35 mg/dL Normal 0.00-1.30 [facility] Comment on above: Order Comment: Order Date: 02/18/25Order Info: [id number] - CMPOrder Info: [id number] - MG Performed By: #### L 500.4050, L501.5200 ####[facility] [address] [place], [address] BUN/CRE 36.5 RATIO High 10-20 [facility] Comment on above: Order Comment: Order Date: 02/18/25Order Info: [id number] - CMPOrder Info: [id number] - MG Performed By: #### L 500.4050, L501.5200 ####[facility] [address] [place], [address] Calcium [Mass/Vol] 9.2 mg/dL Normal 7.6-11.0 [facility] Comment on above: Order Comment: Order Date: 02/18/25Order Info: 0786-1 - CMPOrder Info: [id number] - MG Performed By: #### L 500.4050, L501.5200 ####[facility] [address] [place], [address] Chloride [Moles/Vol] 95 mmol/L Low 98-108 [facility] Comment on above: Order Comment: Order Date: 02/18/25Order Info: 0786-1 - CMPOrder Info: [id number] - MG Performed By: #### L 500.4050, L501.5200 ####[facility] [address] [place], [address] CO2 [Moles/Vol] 34.8 mmol/L High 21.0-32.0 [facility] Comment on above: Order Comment: Order Date: 02/18/25Order Info: 0786-1 - CMPOrder Info: [id number] - MG Performed By: #### L 500.4050, L501.5200 ####[facility] [address] [place], [address] Creatinine [Mass/Vol] 1.73 mg/dL High 0.70-1.20 [facility] Comment on above: Order Comment: Order Date: 02/18/25Order Info: [id number] - CMPOrder Info: [id number] - MG Performed By: #### L 500.4050, L501.5200 ####[facility] [address] [place], [address] GAP 10 Normal 5-15 [facility] Comment on above: Order Comment: Order Date: 02/18/25Order Info: [id number] - CMPOrder Info: [id number] - MG Performed By: #### L 500.4050, L501.5200 ####[facility] [address] [place], [address] GFR/1.73 sq M.predicted among non-blacks MDRD (S/P/Bld) [Vol rate/Area] 30 mL/min/{1.73_m2} Low >60 [facility] Comment on above: Order Comment: Order Date: 02/18/25Order Info: 0786-1 - CMPOrder Info: [id number] - MG Result Comment: mL/m in/1.73m2 CKD-EPI Creatinine Equation (2020) Performed By: #### L 500.4050, L501.5200 ####[facility] [address] [place], [address] Globulin (S) [Mass/Vol] 2.9 g/dL Normal 2.2-4.2 [facility] Comment on above: Order Comment: Order Date: 02/18/25Order Info: 0786-1 - CMPOrder Info: [id number] - MG Performed By: #### L 500.4050, L501.5200 ####[facility] [address] [place], [address] Glucose [Mass/Vol] 93 mg/dL Normal 70-99 [facility] Comment on above: Order Comment: Order Date: 02/18/25Order Info: 0786-1 - CMPOrder Info: [id number] - MG Performed By: #### L 500.4050, L501.5200 ####[facility] [address] [place], [address] Potassium [Moles/Vol] 4.0 mmol/L Normal 3.3-5.1 [facility] Comment on above: Order Comment: Order Date: 02/18/25Order Info: 0786-1 - CMPOrder Info: [id number] - MG Performed By: #### L 500.4050, L501.5200 ####[facility] [address] [place], [address] Sodium [Moles/Vol] 139 mmol/L Normal 133-145 [facility] Comment on above: Order Comment: Order Date: 02/18/25Order Info: 0786-1 - CMPOrder Info: [id number] - MG Performed By: #### L 500.4050, L501.5200 ####[facility] [address] [place], [address] T PROT 6.6 g/dL Normal 5.9-8.4 [facility] Comment on above: Order Comment: Order Date: 02/18/25Order Info: 0786-1 - CMPOrder Info: [id number] - MG Performed By: #### L 500.4050, L501.5200 ####[facility] [address] [place], [address] Urea nitrogen [Mass/Vol] 63 mg/dL High 4-19 [facility] Comment on above: Order Comment: Order Date: 02/18/25Order Info: 0786-1 - CMPOrder Info: [id number] - MG Performed By: #### L 500.4050, L501.5200 ####[facility] [address] [place], [address] Echo Complete W/ Contraston 03-04-2025 Echo Complete W/ Contrast Normal [facility] Echocardiogram study reportO rdered By: Carlene Salazar on 03-04-2025 Study report [facility] [address] [place] [address] Echo Complete W/ Contrast 03/04/25 0957 MR#: [id number] Acct: [id number] Name: OSCAR WOO Rep #:[id number] : 1950 75 From: Carlene Salazar MD [...] Date Dictated: 03/04/25956 Date Transcribed: 03/04/25 1237 Hand Twister: Signed [facility] Work Phone: Glomerular filtration rate ( GFR) estimation/1.73 sq m using serum, plasma, or whole bOrdered By: Kamar Grimes on 03-04-2025 GFR/1.73 sq M.predicted among non-blacks MDRD (S/P/Bld) [Vol rate/Area] 30 mL/min/{1.73_m2} Low >60 [facility] Comment on above: mL/min/1.73m2 CKD-EP I Creatinine Equation (2020) Laboratory - Chemistry and C hemistry - challengeOrdered By: Kamar Girmes on 03-04-2025 AST [Catalytic activity/Vol] 28 U/L <32 [facility] Magnesiumon 03-04-2025 Magnesium [Mass/Vol] 1.9 mg/dL Normal 1.5-2.2 [facility] Comment on above: Order Comment: Order Date: 02/18/25Order Info: [id number] - CMPOrder Info: [id number] - MG Performed By: #### L 500.4050, L501.5200 ####[facility] [address] [place], [address] Magnesium measurement (mass/ volume)Ordered By: Kamar Grimes on 03-04-2025 Magnesium (Unsp spec) [Mass/Vol] 1.9 mg/dL 1.5-2.2 [facility] No Panel InformationOrdered By: Kamar Grimes on 03-04-2025 28 U/L <32 [facility] Potassium measurement (mass/ volume)Ordered By: Kamar Grimes on 03-04-2025 Potassium (Unsp spec) [Mass/Vol] 4.0 mmol/L 3.3-5.1 [facility] Serum creatinine measurement (mass/volume)Ordered By: Kamar Grimes on 03-04-2025 Creatinine [Mass/Vol] 1.73 mg/dL High 0.70-1.20 [facility] Serum globulin measurementOr dered By: Kamar Grimes on 03-04-2025 Globulin (S) [Mass/Vol] 2.9 g/dL 2.2-4.2 [facility] Serum glucose measurement (m ass/volume)Ordered By: Kamar Grimes on 03-04-2025 Glucose [Mass/Vol] 93 mg/dL 70-99 [facility] Serum or plasma alanine gao otransferase (ALT) measurementOrdered By: Kamar Grimes on 03-04-2025 ALT [Catalytic activity/Vol] 22 U/L <35 [facility] Serum or plasma albumin lisa urement (mass/volume)Ordered By: Kamar Grimes on 03-04-2025 Albumin [Mass/Vol] 3.7 g/dL 3.4-4.8 [facility] Serum or plasma albumin/glob ulin mass ratioOrdered By: Kamar Grimes on 03-04-2025 Albumin/Globulin [Mass ratio] 1.3 {ratio} 0.9-2.4 [facility] Serum or plasma alkaline bee sphatase measurementOrdered By: Kamar Grimes on 03-04-2025 ALP [Catalytic activity/Vol] 125 U/L High 35-104 [facility] Serum or plasma calcium lisa urement (mass/volume)Ordered By: Kamar Grimes on 03-04-2025 Calcium [Mass/Vol] 9.2 mg/dL 7.6-11.0 [facility] Serum or plasma urea nitroge n measurement (mass/volume)Ordered By: Kamar Grimes on 03-04-2025 Urea nitrogen [Mass/Vol] 63 mg/dL High 4-19 [facility] Sodium levelOrdered By: Kamar Grimes on 03-04-2025 Sodium [Moles/Vol] 139 mmol/L 133-145 [facility] Total proteinOrdered By: Esmer Grimes on 03-04-2025 Protein [Mass/Vol] 6.6 g/dL 5.9-8.4 [facility] Acid Fast Bacillus Cultureon 02-19-2025 tAFBC Normal [facility] Comment on above: Performed By: #### M 100.4001, M100.2900, M100.2000, M300.3000, L200.0400, M600.2000, M300.2000 ####[facility] [address] [place], [address] Acid Fast Bacillus Smear/Flu oron 02-19-2025 tafb Normal [facility] Comment on above: Performed By: #### M 100.4001, M100.2900, M100.2000, M300.3000, L200.0400, M600.2000, M300.2000 ####[facility] [address] [place], [address] Culture, Fungus 8482on 02-19 CUF Normal [facility] Comment on above: Performed By: #### M 100.4001, M100.2900, M100.2000, M300.3000, L200.0400, M600.2000, M300.2000 ####[facility] [address] [place], [address] Absolute lymphocyte countOrd ered By: Kamar Grimes on 02-10-2025 Lymphocytes Auto (Unsp spec) [#/Vol] 1.51 10*3/uL 0.83-4.51 [facility] Absolute neutrophil countOrd ered By: Kamar Grimes on 02-10-2025 Neutrophils (Bld) [#/Vol] 7.4 10*3/uL 2.0-7.7 [facility] Anion gap in Serum or Plasma Ordered By: Kamar Grimes on 02-10-2025 Anion gap [Moles/Vol] 14 mmol/L 5-15 [facility] Automated lymphocyte count a s percentage of total leukocytesOrdered By: Kamar Grimes on 02-10-2025 Lymphocytes/100 WBC Auto (Unsp spec) 15.2 % Low 19-41 [facility] BUN/creatinine ratioOrdered By: Kamar Grimes on 02-10-2025 Urea nitrogen/Creatinine [Mass ratio] 26.9 mg/mg High 10-20 [facility] Basophil percentageOrdered B y: Kamar Grimes on 02-10-2025 Basophils/100 WBC (Bld) 0.5 % 0-1 [facility] Bilirubin, totalOrdered By: Kamar Grimes on 02-10-2025 Bilirubin [Mass/Vol] 0.39 mg/dL 0.00-1.30 [facility] CBC W/Diff, Automatedon 01-31 Absolute Lymph 1.51 X10 3/uL Normal 0.83-4.51 [facility] Comment on above: Order Comment: Order Date: 02/10/25Order Info: [id number] - CBCD Performed By: #### L 500.4050, L501.5200, L100.0100 ####[facility] [address] [place], [address] Absolute Neut 7.4 X10 3/uL Normal 2.0-7.7 [facility] Comment on above: Order Comment: Order Date: 02/10/25Order Info: [id number] - CBCD Performed By: #### L 500.4050, L501.5200, L100.0100 ####[facility] [address] [place], [address] Basophils/100 WBC (Bld) 0.5 % Normal 0-1 [facility] Comment on above: Order Comment: Order Date: 02/10/25Order Info: [id number] - CBCD Performed By: #### L 500.4050, L501.5200, L100.0100 ####[facility] [address] [place], [address] Eosinophils/100 WBC (Bld) 2.4 % Normal 0-5 [facility] Comment on above: Order Comment: Order Date: 02/10/25Order Info: 0184-1 - CBCD Performed By: #### L 500.4050, L501.5200, L100.0100 ####[facility] [address] [place], [address] Erythrocyte distribution width (RBC) [Ratio] 13.6 % Normal 11.6-14.6 [facility] Comment on above: Order Comment: Order Date: 02/10/25Order Info: 0184-1 - CBCD Performed By: #### L 500.4050, L501.5200, L100.0100 ####[facility] [address] [place], [address] Hematocrit (Bld) [Volume fraction] 43.3 % Normal 37-47 [facility] Comment on above: Order Comment: Order Date: 02/10/25Order Info: 018-1 - CBCD Performed By: #### L 500.4050, L501.5200, L100.0100 ####[facility] [address] [place], [address] Hemoglobin (Bld) [Mass/Vol] 13.7 g/dL Normal 12.0-15.0 [facility] Comment on above: Order Comment: Order Date: 02/10/25Order Info: 0184-1 - CBCD Performed By: #### L 500.4050, L501.5200, L100.0100 ####[facility] [address] [place], [address] IG% 0.400 Normal 0.0-0.9 [facility] Comment on above: Order Comment: Order Date: 02/10/25Order Info: 0184-1 - CBCD Result Comment: IG% - Immature Granulocytes (promyelocytes, myelocytes andmetamyelocytes) > 1% indicates that a LEFT SHIFT is Present. Performed By: #### L 500.4050, L501.5200, L100.0100 ####[facility] [address] [place], [address] Lymphocytes/100 WBC (Bld) 15.2 % Low 19-41 [facility] Comment on above: Order Comment: Order Date: 02/10/25Order Info: 0184-1 - CBCD Performed By: #### L 500.4050, L501.5200, L100.0100 ####[facility] [address] [place], [address] MCH (RBC) [Entitic mass] 29.1 pg Normal 27.0-32.0 [facility] Comment on above: Order Comment: Order Date: 02/10/25Order Info: 0184-1 - CBCD Performed By: #### L 500.4050, L501.5200, L100.0100 ####[facility] [address] [place], [address] MCHC (RBC) [Mass/Vol] 31.6 g/dL Low 32-36 [facility] Comment on above: Order Comment: Order Date: 02/10/25Order Info: 0184-1 - CBCD Performed By: #### L 500.4050, L501.5200, L100.0100 ####[facility] [address] [place], [address] MCV (RBC) [Entitic vol] 92.1 fL Normal 81-99 [facility] Comment on above: Order Comment: Order Date: 02/10/25Order Info: 0184-1 - CBCD Performed By: #### L 500.4050, L501.5200, L100.0100 ####[facility] [address] [place], [address] Monocytes/100 WBC (Bld) 7.3 % Normal 0-10 [facility] Comment on above: Order Comment: Order Date: 02/10/25Order Info: 0184-1 - CBCD Performed By: #### L 500.4050, L501.5200, L100.0100 ####[facility] [address] [place], [address] Neutrophils/100 WBC (Bld) 74.2 % High 47-70 [facility] Comment on above: Order Comment: Order Date: 02/10/25Order Info: 4-1 - CBCD Performed By: #### L 500.4050, L501.5200, L100.0100 ####[facility] [address] [place], [address] Nucleated RBC (Bld) [#/Vol] 0 10*3/uL Normal 0-5 [facility] Comment on above: Order Comment: Order Date: 02/10/25Order Info: 018- - CBCD Performed By: #### L 500.4050, L501.5200, L100.0100 ####[facility] [address] [place], [address] Platelet mean volume (Bld) [Entitic vol] 10.8 fL Normal 6.2-12.0 [facility] Comment on above: Order Comment: Order Date: 02/10/25Order Info: 018-1 - CBCD Performed By: #### L 500.4050, L501.5200, L100.0100 ####[facility] [address] [place], [address] Platelets (Bld) [#/Vol] 166 10*3/uL Normal 150-450 [facility] Comment on above: Order Comment: Order Date: 02/10/25Order Info: 0184-1 - CBCD Performed By: #### L 500.4050, L501.5200, L100.0100 ####[facility] [address] [place], [address] RBC (Bld) [#/Vol] 4.70 10*6/uL Normal 4.2-5.4 [facility] Comment on above: Order Comment: Order Date: 02/10/25Order Info: 0184-1 - CBCD Performed By: #### L 500.4050, L501.5200, L100.0100 ####[facility] [address] [place], [address] RDW SD 45.9 fl High 35.1-43.9 [facility] Comment on above: Order Comment: Order Date: 02/10/25Order Info: 0184- - CBCD Performed By: #### L 500.4050, L501.5200, L100.0100 ####[facility] [address] [place], [address] WBC (Bld) [#/Vol] 9.9 10*3/uL Normal 4.4-11.0 [facility] Comment on above: Order Comment: Order Date: 02/10/25Order Info: 0184-1 - CBCD Performed By: #### L 500.4050, L501.5200, L100.0100 ####[facility] [address] [place], [address] Carbon dioxide, total [Moles /volume] in Central venous bloodOrdered By: Kamar Grimes on 02-10-2025 CO2 [Moles/Vol] 29.4 mmol/L 21.0-32.0 [facility] Chest PA and Lateralon 02-10 Chest PA and Lateral Normal [facility] Chloride assayOrdered By: Jennifer Grimes on 02-10-2025 Chloride [Moles/Vol] 96 mmol/L Low 98-108 [facility] Comprehensive Metabolic Prof ilon 02-10-2025 Albumin [Mass/Vol] 3.9 g/dL Normal 3.4-4.8 [facility] Comment on above: Order Comment: Order Date: 02/10/25Order Info: [id number] - CMPOrder Info: [id number] - MG Performed By: #### L 500.4050, L501.5200, L100.0100 ####[facility] [address] [place], [address] Albumin/Globulin [Mass ratio] 1.3 {ratio} Normal 0.9-2.4 [facility] Comment on above: Order Comment: Order Date: 02/10/25Order Info: 0786-1 - CMPOrder Info: [id number] - MG Performed By: #### L 500.4050, L501.5200, L100.0100 ####[facility] [address] [place], [address] ALK PHOS 147 U/L High 35-104 [facility] Comment on above: Order Comment: Order Date: 02/10/25Order Info: 0786-1 - CMPOrder Info: [id number] - MG Performed By: #### L 500.4050, L501.5200, L100.0100 ####[facility] [address] [place], [address] ALT [Catalytic activity/Vol] 27 U/L Normal <=34 [facility] Comment on above: Order Comment: Order Date: 02/10/25Order Info: [id number] - CMPOrder Info: [id number] - MG Performed By: #### L 500.4050, L501.5200, L100.0100 ####[facility] [address] [place], [address] AST [Catalytic activity/Vol] 36 U/L High <=31 [facility] Comment on above: Order Comment: Order Date: 02/10/25Order Info: 0786-1 - CMPOrder Info: [id number] - MG Performed By: #### L 500.4050, L501.5200, L100.0100 ####[facility] [address] [place], [address] Bilirubin [Mass/Vol] 0.39 mg/dL Normal 0.00-1.30 [facility] Comment on above: Order Comment: Order Date: 02/10/25Order Info: 0786-1 - CMPOrder Info: [id number] - MG Performed By: #### L 500.4050, L501.5200, L100.0100 ####[facility] [address] [place], [address] BUN/CRE 26.9 RATIO High 10-20 [facility] Comment on above: Order Comment: Order Date: 02/10/25Order Info: 0786-1 - CMPOrder Info: [id number] - MG Performed By: #### L 500.4050, L501.5200, L100.0100 ####[facility] [address] [place], [address] Calcium [Mass/Vol] 9.8 mg/dL Normal 7.6-11.0 [facility] Comment on above: Order Comment: Order Date: 02/10/25Order Info: [id number] - CMPOrder Info: [id number] - MG Performed By: #### L 500.4050, L501.5200, L100.0100 ####[facility] [address] [place], [address] Chloride [Moles/Vol] 96 mmol/L Low 98-108 [facility] Comment on above: Order Comment: Order Date: 02/10/25Order Info: 0786-1 - CMPOrder Info: [id number] - MG Performed By: #### L 500.4050, L501.5200, L100.0100 ####[facility] [address] [place], [address] CO2 [Moles/Vol] 29.4 mmol/L Normal 21.0-32.0 [facility] Comment on above: Order Comment: Order Date: 02/10/25Order Info: 0786-1 - CMPOrder Info: [id number] - MG Performed By: #### L 500.4050, L501.5200, L100.0100 ####[facility] [address] [place], [address] Creatinine [Mass/Vol] 0.99 mg/dL Normal 0.70-1.20 [facility] Comment on above: Order Comment: Order Date: 02/10/25Order Info: 0786-1 - CMPOrder Info: [id number] - MG Performed By: #### L 500.4050, L501.5200, L100.0100 ####[facility] [address] [place], [address] GAP 14 Normal 5-15 [facility] Comment on above: Order Comment: Order Date: 02/10/25Order Info: 0786-1 - CMPOrder Info: [id number] - MG Performed By: #### L 500.4050, L501.5200, L100.0100 ####[facility] [address] [place], [address] GFR/1.73 sq M.predicted among non-blacks MDRD (S/P/Bld) [Vol rate/Area] 59 mL/min/{1.73_m2} Low >60 [facility] Comment on above: Order Comment: Order Date: 02/10/25Order Info: 0786-1 - CMPOrder Info: [id number] - MG Result Comment: mL/m in/1.73m2 CKD-EPI Creatinine Equation (2020) Performed By: #### L 500.4050, L501.5200, L100.0100 ####[facility] [address] [place], [address] Globulin (S) [Mass/Vol] 3.1 g/dL Normal 2.2-4.2 [facility] Comment on above: Order Comment: Order Date: 02/10/25Order Info: 0786-1 - CMPOrder Info: [id number] - MG Performed By: #### L 500.4050, L501.5200, L100.0100 ####[facility] [address] [place], [address] Glucose [Mass/Vol] 101 mg/dL High 70-99 [facility] Comment on above: Order Comment: Order Date: 02/10/25Order Info: [id number] - CMPOrder Info: [id number] - MG Performed By: #### L 500.4050, L501.5200, L100.0100 ####[facility] [address] [place], [address] Potassium [Moles/Vol] 4.4 mmol/L Normal 3.3-5.1 [facility] Comment on above: Order Comment: Order Date: 02/10/25Order Info: 0786- - CMPOrder Info: [id number] - MG Performed By: #### L 500.4050, L501.5200, L100.0100 ####[facility] [address] [place], [address] Sodium [Moles/Vol] 140 mmol/L Normal 133-145 [facility] Comment on above: Order Comment: Order Date: 02/10/25Order Info: 0786- - CMPOrder Info: [id number] - MG Performed By: #### L 500.4050, L501.5200, L100.0100 ####[facility] [address] [place], [address] T PROT 7.0 g/dL Normal 5.9-8.4 [facility] Comment on above: Order Comment: Order Date: 02/10/25Order Info: 0786-1 - CMPOrder Info: [id number] - MG Performed By: #### L 500.4050, L501.5200, L100.0100 ####[facility] [address] [place], [address] Urea nitrogen [Mass/Vol] 27 mg/dL High 4-19 [facility] Comment on above: Order Comment: Order Date: 02/10/25Order Info: 0786-1 - CMPOrder Info: [id number] - MG Performed By: #### L 500.4050, L501.5200, L100.0100 ####[facility] [address] [place], [address] Eosinophil percentageOrdered By: Kamar Grimes on 02-10-2025 Eosinophils/100 WBC (Bld) 2.4 % 0-5 [facility] Erythrocyte distribution wid th ratioOrdered By: Kamar Grimes on 02-10-2025 Erythrocyte distribution width (RBC) [Ratio] 13.6 % 11.6-14.6 [facility] Erythrocyte distribution wid th standard deviationOrdered By: Kamar Grimes on 02-10-2025 Erythrocyte distribution width (RBC) [Ratio] 45.9 fl High 35.1-43.9 [facility] Glomerular filtration rate ( GFR) estimation/1.73 sq m using serum, plasma, or whole bOrdered By: Kamar Grimes on 02-10-2025 GFR/1.73 sq M.predicted among non-blacks MDRD (S/P/Bld) [Vol rate/Area] 59 mL/min/{1.73_m2} Low >60 [facility] Comment on above: mL/min/1.73m2 CKD-EP I Creatinine Equation (2020) Hematocrit Auto (Bld) [Volum e fraction]Ordered By: Kamar Grimes on 02-10-2025 Hematocrit (Bld) [Volume fraction] 43.3 % 37-47 [facility] Hemoglobin measurementOrdere d By: Kamar Grimes on 02-10-2025 Hemoglobin (Bld) [Mass/Vol] 13.7 g/dL 12.0-15.0 [facility] Immature granulocytes/100 WB C Auto (Bld)Ordered By: Kamar Grimes on 02-10-2025 Immature granulocytes/100 WBC (Bld) 0.400 % 0.0-0.9 [facility] Comment on above: IG% - Immature Granu locytes (promyelocytes, myelocytes and metamyelocytes) > 1% indicates that a LEFT SHIFT is Present. Laboratory - Chemistry and C hemistry - challengeOrdered By: Kamar Grimes on 08-11-2025 AST [Catalytic activity/Vol] 36 U/L High <32 [facility] MCV (mean corpuscular volume ) determinationOrdered By: Kamar Grimes on 02-10-2025 MCV (RBC) [Entitic vol] 92.1 fL 81-99 [facility] Magnesiumon 02-10-2025 Magnesium [Mass/Vol] 1.7 mg/dL Normal 1.5-2.2 [facility] Comment on above: Order Comment: Order Date: 02/10/25Order Info: [id number] - CMPOrder Info: [id number] - MG Performed By: #### L 500.4050, L501.5200, L100.0100 ####[facility] [address] [place], [place], [address] Magnesium measurement (mass/ volume)Ordered By: Kamar Grimes on 02-10-2025 Magnesium (Unsp spec) [Mass/Vol] 1.7 mg/dL 1.5-2.2 [facility] Mean corpuscular hemoglobin (MCH) determinationOrdered By: Kamar Grimes on 02-10-2025 MCH (RBC) [Entitic mass] 29.1 pg 27.0-32.0 [facility] Mean corpuscular hemoglobin concentration (MCHC) determinationOrdered By: Kamar Grimes on 02-10-2025 MCHC (RBC) [Mass/Vol] 31.6 g/dL Low 32-36 [facility] Mean platelet volume determi nationOrdered By: Kamar Grimes on 02-10-2025 Platelet mean volume (Bld) [Entitic vol] 10.8 fL 6.2-12.0 [facility] Monocyte percentageOrdered B y: Kamar Grimes on 02-10-2025 Monocytes/100 WBC (Bld) 7.3 % 0-10 [facility] Natriuretic peptide.B prohor mac N-Terminal [Mass/volume] in Serum or PlasmaOrdered By: Kamar Grimes on 02-10-2025 Natriuretic peptide.B prohormone N-Terminal [Mass/Vol] 1101 pg/mL <1800 [facility] Comment on above: Heart Failure Unlike ly: < 300 pg/mLHeart Failure Likely< 50 Years: > 450 pg/mL50-75 Years: > 900 pg/mL>75 Years: > 1800 pg/mL Neutrophil percentageOrdered By: Kamar Grimes on 02-10-2025 Neutrophils/100 WBC (Bld) 74.2 % High 47-70 [facility] No Panel InformationOrdered By: Kamar Grimes on 02-10-2025 36 U/L High <32 [facility] Nucleated red blood cell per centageOrdered By: Kamar Grimes on 02-10-2025 Nucleated RBC/100 WBC (Bld) [Ratio] 0 % 0-5 [facility] Platelet countOrdered By: Jennifer Grimes on 02-10-2025 Platelets (Bld) [#/Vol] 166 10*3/uL 150-450 [facility] Potassium measurement (mass/ volume)Ordered By: Kamar Grimes on 02-10-2025 Potassium (Unsp spec) [Mass/Vol] 4.4 mmol/L 3.3-5.1 [facility] Pro- Brain NATRIURETIC PEPTI Rita 02-10-2025 Natriuretic peptide B (Bld) [Mass/Vol] 1101 pg/mL Normal <=1800 [facility] Comment on above: Order Comment: Order Date: 02/10/25Order Info: [id number] - CMPOrder Info: [id number] - MG Result Comment: Hear t Failure Unlikely: < 300 pg/mLHeart Failure Likely< 50 Years: > 450 pg/mL50-75 Years: > 900 pg/mL>75 Years: > 1800 pg/mL Performed By: #### L 503.7505 ####[facility] [address] [place], [place], [id number] RBC Auto (Bld) [#/Vol]Ordere d By: Kamar Grimes on 02-10-2025 RBC (Bld) [#/Vol] 4.70 10*6/uL 4.2-5.4 [facility] Serum creatinine measurement (mass/volume)Ordered By: Kamar Grimes on 02-10-2025 Creatinine [Mass/Vol] 0.99 mg/dL 0.70-1.20 [facility] Serum globulin measurementOr dered By: Kamar Grimes on 02-10-2025 Globulin (S) [Mass/Vol] 3.1 g/dL 2.2-4.2 [facility] Serum glucose measurement (m ass/volume)Ordered By: Kamar Grimes on 02-10-2025 Glucose [Mass/Vol] 101 mg/dL High 70-99 [facility] Serum or plasma alanine gao otransferase (ALT) measurementOrdered By: Kamar Grimes on 02-10-2025 ALT [Catalytic activity/Vol] 27 U/L <35 [facility] Serum or plasma albumin lisa urement (mass/volume)Ordered By: Kamar Grimes on 02-10-2025 Albumin [Mass/Vol] 3.9 g/dL 3.4-4.8 [facility] Serum or plasma albumin/glob ulin mass ratioOrdered By: Kamar Grimes on 02-10-2025 Albumin/Globulin [Mass ratio] 1.3 {ratio} 0.9-2.4 [facility] Serum or plasma alkaline bee sphatase measurementOrdered By: Kamar Grimes on 02-10-2025 ALP [Catalytic activity/Vol] 147 U/L High 35-104 [facility] Serum or plasma calcium lisa urement (mass/volume)Ordered By: Kamar Grimes on 02-10-2025 Calcium [Mass/Vol] 9.8 mg/dL 7.6-11.0 [facility] Serum or plasma urea nitroge n measurement (mass/volume)Ordered By: Kamar Grimes on 02-10-2025 Urea nitrogen [Mass/Vol] 27 mg/dL High 4-19 [facility] Sodium levelOrdered By: Kamar Grimes on 02-10-2025 Sodium [Moles/Vol] 140 mmol/L 133-145 [facility] Total proteinOrdered By: Esmer Grimes on 02-10-2025 Protein [Mass/Vol] 7.0 g/dL 5.9-8.4 [facility] White blood cell (WBC) count Ordered By: Kamar Grimes on 02-10-2025 WBC (Bld) [#/Vol] 9.9 10*3/uL 4.4-11.0 [facility] Acid Fast Bacillus Cultureon 12-06-2024 tAFBC Normal [facility] Comment on above: Performed By: #### M 100.3000, M300.2000, M600.2200, M300.3000, M100.2000, M600.2000, M100.4001 ####[facility] [address] [place], [address] Acid Fast Bacillus Smear/Flu oron 11-06-2024 tafb Normal [facility] Comment on above: Performed By: #### M 100.3000, M300.2000, M600.2200, M300.3000, M100.2000, M600.2000, M100.4001 ####[facility] [address] [place], [address] Culture, Fungus 8482on 11-06 CUF [facility] Comment on above: Performed By: #### M 100.3000, M300.2000, M600.2200, M300.3000, M100.2000, M600.2000, M100.4001 ####[facility] [address] [place], [address] Fungus Stain 8136on 11-07-19 25 FUNST Normal [facility] Comment on above: Performed By: #### M 100.3000, M300.2000, M600.2200, M300.3000, M100.2000, M600.2000, M100.4001 ####[facility] [address] [place], [address] Basic Metabolic Profile (BMP )on 10-31-2024 BUN Normal - [facility] Comment on above: Result Comment: Canc elled via OM: Order cancelled - Patient discharged Performed By: #### L 100.0100, L500.2500 ####[facility] [address] [place], [address] BUN/CRE Normal - [facility] Comment on above: Result Comment: Canc elled via OM: Order cancelled - Patient discharged Performed By: #### L 100.0100, L500.2500 ####[facility] [address] [place], [address] Calcium Normal 7.6-11.0 [facility] Comment on above: Result Comment: Canc elled via OM: Order cancelled - Patient discharged Performed By: #### L 100.0100, L500.2500 ####[facility] [address] [place], [address] CL Normal 98-108 [facility] Comment on above: Result Comment: Canc elled via OM: Order cancelled - Patient discharged Performed By: #### L 100.0100, L500.2500 ####[facility] [address] [place], [address] CO2 Normal 21.0-32.0 [facility] Comment on above: Result Comment: Canc elled via OM: Order cancelled - Patient discharged Performed By: #### L 100.0100, L500.2500 ####[facility] [address] [place], [address] CREAT,SERUM Normal 0.70-1.20 [facility] Comment on above: Result Comment: Canc elled via OM: Order cancelled - Patient discharged Performed By: #### L 100.0100, L500.2500 ####[facility] [address] [place], [address] eGFR Normal >60 [facility] Comment on above: Result Comment: Canc elled via OM: Order cancelled - Patient discharged Performed By: #### L 100.0100, L500.2500 ####[facility] [address] [place], [address] GAP Normal 5-15 [facility] Comment on above: Result Comment: Canc elled via OM: Order cancelled - Patient discharged Performed By: #### L 100.0100, L500.2500 ####[facility] [address] [place], [address] GLU Normal 70-99 [facility] Comment on above: Result Comment: Canc elled via OM: Order cancelled - Patient discharged Performed By: #### L 100.0100, L500.2500 ####[facility] [address] [place], [address] Potassium Normal 3.3-5.1 [facility] Comment on above: Result Comment: Canc elled via OM: Order cancelled - Patient discharged Performed By: #### L 100.0100, L500.2500 ####[facility] [address] [place], [address] Basic Metabolic Profile (BMP) Normal 133-145 [facility] Comment on above: Result Comment: Canc elled via OM: Order cancelled - Patient discharged Performed By: #### L 100.0100, L500.2500 ####[facility] [address] [place], [address] CBC W/Diff, Automatedon 05-0 Absolute Neut Normal 2.0-7.7 [facility] Comment on above: Result Comment: Canc elled via OM: Order cancelled - Patient discharged Performed By: #### L 100.0100, L500.2500 ####[facility] [address] [place], [address] HCT Normal 37-47 [facility] Comment on above: Result Comment: Canc elled via OM: Order cancelled - Patient discharged Performed By: #### L 100.0100, L500.2500 ####[facility] [address] [place], [address] HGB Normal 12.0-15.0 [facility] Comment on above: Result Comment: Canc elled via OM: Order cancelled - Patient discharged Performed By: #### L 100.0100, L500.2500 ####[facility] [address] [place], [address] MCH Normal 27.0-32.0 [facility] Comment on above: Result Comment: Canc elled via OM: Order cancelled - Patient discharged Performed By: #### L 100.0100, L500.2500 ####[facility] [address] [place], [address] MCHC Normal 32-36 [facility] Comment on above: Result Comment: Canc elled via OM: Order cancelled - Patient discharged Performed By: #### L 100.0100, L500.2500 ####[facility] [address] [place], [address] MCV Normal 81-99 [facility] Comment on above: Result Comment: Canc elled via OM: Order cancelled - Patient discharged Performed By: #### L 100.0100, L500.2500 ####[facility] [address] [place], [address] NEUT% Normal 47-70 [facility] Comment on above: Result Comment: Canc elled via OM: Order cancelled - Patient discharged Performed By: #### L 100.0100, L500.2500 ####[facility] [address] [place], [address] PLT Normal 150-450 [facility] Comment on above: Result Comment: Canc elled via OM: Order cancelled - Patient discharged Performed By: #### L 100.0100, L500.2500 ####[facility] [address] [place], [address] RBC Normal 4.2-5.4 [facility] Comment on above: Result Comment: Canc elled via OM: Order cancelled - Patient discharged Performed By: #### L 100.0100, L500.2500 ####[facility] [address] [place], [address] RDW CV Normal 11.6-14.6 [facility] Comment on above: Result Comment: Canc elled via OM: Order cancelled - Patient discharged Performed By: #### L 100.0100, L500.2500 ####[facility] [address] [place], [address] RDW SD Normal 35.1-43.9 [facility] Comment on above: Result Comment: Canc elled via OM: Order cancelled - Patient discharged Performed By: #### L 100.0100, L500.2500 ####[facility] [address] [place], [address] WBC Normal 4.4-11.0 [facility] Comment on above: Result Comment: Canc elled via OM: Order cancelled - Patient discharged Performed By: #### L 100.0100, L500.2500 ####[facility] [address] [place], [address] Acid Fast Bacillus Cultureon 10-30-2024 tAFBC [facility] Comment on above: Performed By: #### M 100.4001, M600.2000, M300.2000, M300.3000, M100.2000, M100.3000, M600.2200 ####[facility] [address] [place], [address] tAFBC [facility] Comment on above: Performed By: #### M 100.2000, M600.2200, M300.2000, M100.3000, M300.3000, M600.2000, M100.4001 ####[facility] [address] [place], [address] Acid Fast Bacillus Smear/Flu oron 10-30-2024 tafb [facility] Comment on above: Performed By: #### M 100.4001, M600.2000, M300.2000, M300.3000, M100.2000, M100.3000, M600.2200 ####[facility] [address] [place], [address] tafb [facility] Comment on above: Performed By: #### M 100.2000, M600.2200, M300.2000, M100.3000, M300.3000, M600.2000, M100.4001 ####[facility] [address] [place], [address] Culture, Fungus 8482on 10-[address] [facility] Comment on above: Performed By: #### M 100.4001, M600.2000, M300.2000, M300.3000, M100.2000, M100.3000, M600.2200 ####[facility] [address] [place], [address] [facility] Comment on above: Performed By: #### M 100.2000, M600.2200, M300.2000, M100.3000, M300.3000, M600.2000, M100.4001 ####[facility] [address] [place], [address] Fungus Stain 8136on 10-31-19 [facility] Comment on above: Performed By: #### M 100.4001, M600.2000, M300.2000, M300.3000, M100.2000, M100.3000, M600.2200 ####[facility] [address] [place], [address] [facility] Comment on above: Performed By: #### M 100.2000, M600.2200, M300.2000, M100.3000, M300.3000, M600.2000, M100.4001 ####[facility] [address] [place], [address] Basic Metabolic Profile (BMP )on 10-24-2024 BUN Normal 4-19 [facility] Comment on above: Result Comment: Canc elled via OM: Order cancelled - Patient discharged Performed By: #### L 500.2500, L100.0100 ####[facility] [address] [place], [address] BUN/CRE Normal 10-20 [facility] Comment on above: Result Comment: Canc elled via OM: Order cancelled - Patient discharged Performed By: #### L 500.2500, L100.0100 ####[facility] [address] [place], [address] Calcium Normal 7.6-11.0 [facility] Comment on above: Result Comment: Canc elled via OM: Order cancelled - Patient discharged Performed By: #### L 500.2500, L100.0100 ####[facility] [address] [place], [address] CL Normal 98-108 [facility] Comment on above: Result Comment: Canc elled via OM: Order cancelled - Patient discharged Performed By: #### L 500.2500, L100.0100 ####[facility] [address] [place], [address] CO2 Normal 21.0-32.0 [facility] Comment on above: Result Comment: Canc elled via OM: Order cancelled - Patient discharged Performed By: #### L 500.2500, L100.0100 ####[facility] [address] [place], [address] CREAT,SERUM Normal 0.70-1.20 [facility] Comment on above: Result Comment: Canc elled via OM: Order cancelled - Patient discharged Performed By: #### L 500.2500, L100.0100 ####[facility] [address] [place], [address] eGFR Normal >60 [facility] Comment on above: Result Comment: Canc elled via OM: Order cancelled - Patient discharged Performed By: #### L 500.2500, L100.0100 ####[facility] [address] [place], [address] GAP Normal 5-15 [facility] Comment on above: Result Comment: Canc elled via OM: Order cancelled - Patient discharged Performed By: #### L 500.2500, L100.0100 ####[facility] [address] [place], [address] GLU Normal 70-99 [facility] Comment on above: Result Comment: Canc elled via OM: Order cancelled - Patient discharged Performed By: #### L 500.2500, L100.0100 ####[facility] [address] [place], [address] Potassium Normal 3.3-5.1 [facility] Comment on above: Result Comment: Canc elled via OM: Order cancelled - Patient discharged Performed By: #### L 500.2500, L100.0100 ####[facility] [address] [place], [address] Basic Metabolic Profile (BMP) Normal 133-145 [facility] Comment on above: Result Comment: Canc elled via OM: Order cancelled - Patient discharged Performed By: #### L 500.2500, L100.0100 ####[facility] [address] [place], [address] CBC W/Diff, Automatedon 04-2 Absolute Neut Normal 2.0-7.7 [facility] Comment on above: Result Comment: Canc elled via OM: Order cancelled - Patient discharged Performed By: #### L 500.2500, L100.0100 ####[facility] [address] [place], [address] HCT Normal 37-47 [facility] Comment on above: Result Comment: Canc elled via OM: Order cancelled - Patient discharged Performed By: #### L 500.2500, L100.0100 ####[facility] [address] [place], [address] HGB Normal 12.0-15.0 [facility] Comment on above: Result Comment: Canc elled via OM: Order cancelled - Patient discharged Performed By: #### L 500.2500, L100.0100 ####[facility] [address] [place], [address] MCH Normal 27.0-32.0 [facility] Comment on above: Result Comment: Canc elled via OM: Order cancelled - Patient discharged Performed By: #### L 500.2500, L100.0100 ####[facility] [address] [place], [address] MCHC Normal 32-36 [facility] Comment on above: Result Comment: Canc elled via OM: Order cancelled - Patient discharged Performed By: #### L 500.2500, L100.0100 ####[facility] [address] [place], [address] MCV Normal 81-99 [facility] Comment on above: Result Comment: Canc elled via OM: Order cancelled - Patient discharged Performed By: #### L 500.2500, L100.0100 ####[facility] [address] [place], [address] NEUT% Normal 47-70 [facility] Comment on above: Result Comment: Canc elled via OM: Order cancelled - Patient discharged Performed By: #### L 500.2500, L100.0100 ####[facility] [address] [place], [address] PLT Normal 150-450 [facility] Comment on above: Result Comment: Canc elled via OM: Order cancelled - Patient discharged Performed By: #### L 500.2500, L100.0100 ####[facility] [address] [place], [address] RBC Normal 4.2-5.4 [facility] Comment on above: Result Comment: Canc elled via OM: Order cancelled - Patient discharged Performed By: #### L 500.2500, L100.0100 ####[facility] [address] [place], [address] RDW CV Normal 11.6-14.6 [facility] Comment on above: Result Comment: Canc elled via OM: Order cancelled - Patient discharged Performed By: #### L 500.2500, L100.0100 ####[facility] [address] [place], [address] RDW SD Normal 35.1-43.9 [facility] Comment on above: Result Comment: Canc elled via OM: Order cancelled - Patient discharged Performed By: #### L 500.2500, L100.0100 ####[facility] [address] [place], [address] WBC Normal 4.4-11.0 [facility] Comment on above: Result Comment: Canc elled via OM: Order cancelled - Patient discharged Performed By: #### L 500.2500, L100.0100 ####[facility] [address] [place], [address] Basic Metabolic Profile (BMP )on 10-17-2024 BUN Normal 4-19 [facility] Comment on above: Result Comment: Canc elled via OM: Order cancelled - Patient discharged Performed By: #### L 500.2500, L100.0100 ####[facility] [address] [place], [address] BUN/CRE Normal 10-20 [facility] Comment on above: Result Comment: Canc elled via OM: Order cancelled - Patient discharged Performed By: #### L 500.2500, L100.0100 ####[facility] [address] [place], [address] Calcium Normal 7.6-11.0 [facility] Comment on above: Result Comment: Canc elled via OM: Order cancelled - Patient discharged Performed By: #### L 500.2500, L100.0100 ####[facility] [address] [place], [address] CL Normal 98-108 [facility] Comment on above: Result Comment: Canc elled via OM: Order cancelled - Patient discharged Performed By: #### L 500.2500, L100.0100 ####[facility] [address] [place], [address] CO2 Normal 21.0-32.0 [facility] Comment on above: Result Comment: Canc elled via OM: Order cancelled - Patient discharged Performed By: #### L 500.2500, L100.0100 ####[facility] [address] [place], [address] CREAT,SERUM Normal 0.70-1.20 [facility] Comment on above: Result Comment: Canc elled via OM: Order cancelled - Patient discharged Performed By: #### L 500.2500, L100.0100 ####[facility] [address] [place], [address] eGFR Normal >60 [facility] Comment on above: Result Comment: Canc elled via OM: Order cancelled - Patient discharged Performed By: #### L 500.2500, L100.0100 ####[facility] [address] [place], [address] GAP Normal 5-15 [facility] Comment on above: Result Comment: Canc elled via OM: Order cancelled - Patient discharged Performed By: #### L 500.2500, L100.0100 ####[facility] [address] [place], [address] GLU Normal 70-99 [facility] Comment on above: Result Comment: Canc elled via OM: Order cancelled - Patient discharged Performed By: #### L 500.2500, L100.0100 ####[facility] [address], [address] Potassium Normal 3.3-5.1 [facility] Comment on above: Result Comment: Canc elled via OM: Order cancelled - Patient discharged Performed By: #### L 500.2500, L100.0100 ####[facility] [address] [place], [address] Basic Metabolic Profile (BMP) Normal 133-145 [facility] Comment on above: Result Comment: Canc elled via OM: Order cancelled - Patient discharged Performed By: #### L 500.2500, L100.0100 ####[facility] [address] [place], [address] CBC W/Diff, Automatedon - Absolute Neut Normal 2.0-7.7 [facility] Comment on above: Result Comment: Canc elled via OM: Order cancelled - Patient discharged Performed By: #### L 500.2500, L100.0100 ####[facility] [address] [place], [address] HCT Normal 37-47 [facility] Comment on above: Result Comment: Canc elled via OM: Order cancelled - Patient discharged Performed By: #### L 500.2500, L100.0100 ####[facility] [address] [place], [address] HGB Normal 12.0-15.0 [facility] Comment on above: Result Comment: Canc elled via OM: Order cancelled - Patient discharged Performed By: #### L 500.2500, L100.0100 ####[facility] [address] [place], [address] MCH Normal 27.0-32.0 [facility] Comment on above: Result Comment: Canc elled via OM: Order cancelled - Patient discharged Performed By: #### L 500.2500, L100.0100 ####[facility] [address] [place], [address] MCHC Normal 32-36 [facility] Comment on above: Result Comment: Canc elled via OM: Order cancelled - Patient discharged Performed By: #### L 500.2500, L100.0100 ####[facility] [address] [place], [address] MCV Normal 81-99 [facility] Comment on above: Result Comment: Canc elled via OM: Order cancelled - Patient discharged Performed By: #### L 500.2500, L100.0100 ####[facility] [address] [place], [address] NEUT% Normal 47-70 [facility] Comment on above: Result Comment: Canc elled via OM: Order cancelled - Patient discharged Performed By: #### L 500.2500, L100.0100 ####[facility] [address] [place], [address] PLT Normal 150-450 [facility] Comment on above: Result Comment: Canc elled via OM: Order cancelled - Patient discharged Performed By: #### L 500.2500, L100.0100 ####[facility] [address] [place], [address] RBC Normal 4.2-5.4 [facility] Comment on above: Result Comment: Canc elled via OM: Order cancelled - Patient discharged Performed By: #### L 500.2500, L100.0100 ####[facility] [address] [place], [address] RDW CV Normal 11.6-14.6 [facility] Comment on above: Result Comment: Canc elled via OM: Order cancelled - Patient discharged Performed By: #### L 500.2500, L100.0100 ####[facility] [address] [place], [address] RDW SD Normal 35.1-43.9 [facility] Comment on above: Result Comment: Canc elled via OM: Order cancelled - Patient discharged Performed By: #### L 500.2500, L100.0100 ####[facility] [address] [place], [address] WBC Normal 4.4-11.0 [facility] Comment on above: Result Comment: Canc elled via OM: Order cancelled - Patient discharged Performed By: #### L 500.2500, L100.0100 ####[facility] [address] [place], [address] Synovial Fluid RBC, WBC AND Diffon 10-14-2024 PATH COM/SYFL Reviewed Normal [facility] Comment on above: Result Comment: SEE REPORT IN PATIENT'S EMR AMENDED REPORT 10/14/24 1405 PATH COM/SYFL previously reported as: May follow Performed By: #### M 100.4001, M100.2900, M100.2000, M300.3000, L200.0400, M600.2000, M300.2000 ####[facility] [address] [place], [address] Basic Metabolic Profile (BMP )on 10-10-2024 BUN Normal 4-19 [facility] Comment on above: Result Comment: Canc elled via OM: Order cancelled - Patient discharged Performed By: #### L 100.0100, L500.2500 ####[facility] [address] [place], [address] BUN/CRE Normal 10-20 [facility] Comment on above: Result Comment: Canc elled via OM: Order cancelled - Patient discharged Performed By: #### L 100.0100, L500.2500 ####[facility] [address] [place], [address] Calcium Normal 7.6-11.0 [facility] Comment on above: Result Comment: Canc elled via OM: Order cancelled - Patient discharged Performed By: #### L 100.0100, L500.2500 ####[facility] [address] [place], [address] CL Normal 98-108 [facility] Comment on above: Result Comment: Canc elled via OM: Order cancelled - Patient discharged Performed By: #### L 100.0100, L500.2500 ####[facility] [address] [place], [address] CO2 Normal 21.0-32.0 [facility] Comment on above: Result Comment: Canc elled via OM: Order cancelled - Patient discharged Performed By: #### L 100.0100, L500.2500 ####[facility] [address] [place], [address] CREAT,SERUM Normal 0.70-1.20 [facility] Comment on above: Result Comment: Canc elled via OM: Order cancelled - Patient discharged Performed By: #### L 100.0100, L500.2500 ####[facility] [address] [place], [address] eGFR Normal >60 [facility] Comment on above: Result Comment: Canc elled via OM: Order cancelled - Patient discharged Performed By: #### L 100.0100, L500.2500 ####[facility] [address] [place], [address] GAP Normal 5-15 [facility] Comment on above: Result Comment: Canc elled via OM: Order cancelled - Patient discharged Performed By: #### L 100.0100, L500.2500 ####[facility] [address] [place], [address] GLU Normal 70-99 [facility] Comment on above: Result Comment: Canc elled via OM: Order cancelled - Patient discharged Performed By: #### L 100.0100, L500.2500 ####[facility] [address] [place], [address] Potassium Normal 3.3-5.1 [facility] Comment on above: Result Comment: Canc elled via OM: Order cancelled - Patient discharged Performed By: #### L 100.0100, L500.2500 ####[facility] [address] [place], [address] Basic Metabolic Profile (BMP) Normal 133-145 [facility] Comment on above: Result Comment: Canc elled via OM: Order cancelled - Patient discharged Performed By: #### L 100.0100, L500.2500 ####[facility] [address] [place], [address] CBC W/Diff, Automatedon 10-01-2024 Absolute Neut Normal 2.0-7.7 [facility] Comment on above: Result Comment: Canc elled via OM: Order cancelled - Patient discharged Performed By: #### L 100.0100, L500.2500 ####[facility] [address] [place], [address] HCT Normal 37-47 [facility] Comment on above: Result Comment: Canc elled via OM: Order cancelled - Patient discharged Performed By: #### L 100.0100, L500.2500 ####[facility] [address] [place], [address] HGB Normal 12.0-15.0 [facility] Comment on above: Result Comment: Canc elled via OM: Order cancelled - Patient discharged Performed By: #### L 100.0100, L500.2500 ####[facility] [address] [place], [address] MCH Normal 27.0-32.0 [facility] Comment on above: Result Comment: Canc elled via OM: Order cancelled - Patient discharged Performed By: #### L 100.0100, L500.2500 ####[facility] [address] [place], [address] MCHC Normal 32-36 [facility] Comment on above: Result Comment: Canc elled via OM: Order cancelled - Patient discharged Performed By: #### L 100.0100, L500.2500 ####[facility] [address] [place], [address] MCV Normal 81-99 [facility] Comment on above: Result Comment: Canc elled via OM: Order cancelled - Patient discharged Performed By: #### L 100.0100, L500.2500 ####[facility] [address] [place], [address] NEUT% Normal 47-70 [facility] Comment on above: Result Comment: Canc elled via OM: Order cancelled - Patient discharged Performed By: #### L 100.0100, L500.2500 ####[facility] [address] [place], [address] PLT Normal 150-450 [facility] Comment on above: Result Comment: Canc elled via OM: Order cancelled - Patient discharged Performed By: #### L 100.0100, L500.2500 ####[facility] [address] [place], [address] RBC Normal 4.2-5.4 [facility] Comment on above: Result Comment: Canc elled via OM: Order cancelled - Patient discharged Performed By: #### L 100.0100, L500.2500 ####[facility] [address] [place], [address] RDW CV Normal 11.6-14.6 [facility] Comment on above: Result Comment: Canc elled via OM: Order cancelled - Patient discharged Performed By: #### L 100.0100, L500.2500 ####[facility] [address] [place], [address] RDW SD Normal 35.1-43.9 [facility] Comment on above: Result Comment: Canc elled via OM: Order cancelled - Patient discharged Performed By: #### L 100.0100, L500.2500 ####[facility] [address] [place], [address] WBC Normal 4.4-11.0 [facility] Comment on above: Result Comment: Canc elled via OM: Order cancelled - Patient discharged Performed By: #### L 100.0100, L500.2500 ####[facility] [address] [place], [address] Vancomycin trough [Mass/Vol] Ordered By: Sixto Andrade on 10-06-2024 Vancomycin Level Trough 13.6 ug/mL 5.0-15.0 [facility] Comment on above: Recommended goal tro ugh [...] therapy recommended for serious lifethreatening infections include:- Dtwdgwuohj-Sgplwwpgdsbg-Hrayhfjcf (Ventilator/Healtcare Associated)-Sepsis PLEASE CONTACT PHARMACY SERVICES (#8336) FOR INTERPRETATIONOF RESULTS. Vancomycin, Trough Levelon 0 10-06-2024 VANCO, TROUGH 13.6 ug/mL Normal 5.0-15.0 [facility] Comment on above: Order Comment: Comme nts: DRAW 30 MIN PRIOR TO [id number] Result Comment: Zackery mmended goal trough ranges [...] therapy recommended for serious lifethreatening infections include:- Zytigbvbvl-Tzeanejuaqce-Xwcdqyjye (Ventilator/Healtcare Associated)-SepsisPLEASE CONTACT PHARMACY SERVICES (#3939) FOR INTERPRETATIONOF RESULTS. Performed By: #### L 501.8820 ####[facility] [address] [place], [address] Absolute neutrophil countOrd ered By: Rodrigo Sanches on 10-03-2024 Neutrophils (Bld) [#/Vol] 3.0 10*3/uL 2.0-7.7 [facility] Anion gap in Serum or Plasma Ordered By: Rodrigo Sanches on 10-03-2024 Anion gap [Moles/Vol] 11 mmol/L - [facility] BUN/creatinine ratioOrdered By: Rodrigo Sanches on 10-03-2024 Urea nitrogen/Creatinine [Mass ratio] 24.6 mg/mg High - [facility] Basic Metabolic Profile (BMP )on 10-03-2024 BUN/CRE 24.6 RATIO High - [facility] Comment on above: Performed By: #### L 500.2500, L100.0100 ####[facility] [address] [place], [address] Calcium [Mass/Vol] 9.2 mg/dL Normal 7.6-11.0 [facility] Comment on above: Performed By: #### L 500.2500, L100.0100 ####[facility] [address] [place], [address] Chloride [Moles/Vol] 100 mmol/L Normal 98-108 [facility] Comment on above: Performed By: #### L 500.2500, L100.0100 ####[facility] [address] [place], [address] CO2 [Moles/Vol] 27.3 mmol/L Normal 21.0-32.0 [facility] Comment on above: Performed By: #### L 500.2500, L100.0100 ####[facility] [address] [place], [address] Creatinine [Mass/Vol] 1.09 mg/dL Normal 0.70-1.20 [facility] Comment on above: Performed By: #### L 500.2500, L100.0100 ####[facility] [address] [place], [address] ECRCL 56.04 ml/min Normal 50-250 [facility] Comment on above: Performed By: #### L 500.2500, L100.0100 ####[facility] [address] [place], [address] GAP 11 Normal 5-15 [facility] Comment on above: Performed By: #### L 500.2500, L100.0100 ####[facility] [address] [place], [address] GFR/1.73 sq M.predicted among non-blacks MDRD (S/P/Bld) [Vol rate/Area] 53 mL/min/{1.73_m2} Low >60 [facility] Comment on above: Result Comment: mL/m in/1.73m2 CKD-EPI Creatinine Equation (2020) Performed By: #### L 500.2500, L100.0100 ####[facility] [address] [place], [address] Glucose [Mass/Vol] 96 mg/dL Normal 70-99 [facility] Comment on above: Performed By: #### L 500.2500, L100.0100 ####[facility] [address] [place], [address] Potassium [Moles/Vol] 4.4 mmol/L Normal 3.3-5.1 [facility] Comment on above: Performed By: #### L 500.2500, L100.0100 ####[facility] [address] [place], [address] Sodium [Moles/Vol] 139 mmol/L Normal 133-145 [facility] Comment on above: Performed By: #### L 500.2500, L100.0100 ####[facility] [address] [place], [address] Urea nitrogen [Mass/Vol] 27 mg/dL High 4-19 [facility] Comment on above: Performed By: #### L 500.2500, L100.0100 ####[facility] [address] [place], [address] Basophil percentageOrdered B y: Rodrigo Sanches on 10-03-2024 Basophils/100 WBC (Bld) 0.8 % 0-1 [facility] CBC W/Diff, Automatedon Absolute Lymph 1.20 X10 3/uL Normal 0.83-4.51 [facility] Comment on above: Performed By: #### L 500.2500, L100.0100 ####[facility] [address] [place], [address] Absolute Neut 3.0 X10 3/uL Normal 2.0-7.7 [facility] Comment on above: Performed By: #### L 500.2500, L100.0100 ####[facility] [address] [place], [address] Basophils/100 WBC (Bld) 0.8 % Normal 0-1 [facility] Comment on above: Performed By: #### L 500.2500, L100.0100 ####[facility] [address] [place], [address] Eosinophils/100 WBC (Bld) 5.5 % High 0-5 [facility] Comment on above: Performed By: #### L 500.2500, L100.0100 ####[facility] [address] [place], [address] Erythrocyte distribution width (RBC) [Ratio] 15.0 % High 11.6-14.6 [facility] Comment on above: Performed By: #### L 500.2500, L100.0100 ####[facility] [address] [place], [address] Hematocrit (Bld) [Volume fraction] 37.3 % Normal 37-47 [facility] Comment on above: Performed By: #### L 500.2500, L100.0100 ####[facility] [address] [place], [address] Hemoglobin (Bld) [Mass/Vol] 11.9 g/dL Low 12.0-15.0 [facility] Comment on above: Performed By: #### L 500.2500, L100.0100 ####[facility] [address] [place], [address] IG% 0.600 Normal 0.0-0.9 [facility] Comment on above: Result Comment: IG% - Immature Granulocytes (promyelocytes, myelocytes andmetamyelocytes) > 1% indicates that a LEFT SHIFT is Present. Performed By: #### L 500.2500, L100.0100 ####[facility] [address] [place], [address] Lymphocytes/100 WBC (Bld) 22.7 % Normal 19-41 [facility] Comment on above: Performed By: #### L 500.2500, L100.0100 ####[facility] [address] [place], [address] MCH (RBC) [Entitic mass] 29.2 pg Normal 27.0-32.0 [facility] Comment on above: Performed By: #### L 500.2500, L100.0100 ####[facility] [address] [place], [address] MCHC (RBC) [Mass/Vol] 31.9 g/dL Low 32-36 [facility] Comment on above: Performed By: #### L 500.2500, L100.0100 ####[facility] [address] [place], [address] MCV (RBC) [Entitic vol] 91.6 fL Normal 81-99 [facility] Comment on above: Performed By: #### L 500.2500, L100.0100 ####[facility] [address] [place], [address] Monocytes/100 WBC (Bld) 13.4 % High 0-10 [facility] Comment on above: Performed By: #### L 500.2500, L100.0100 ####[facility] [address] [place], [address] Neutrophils/100 WBC (Bld) 57.0 % Normal 47-70 [facility] Comment on above: Performed By: #### L 500.2500, L100.0100 ####[facility] [address] [place], [address] Nucleated RBC (Bld) [#/Vol] 0 10*3/uL Normal 0-5 [facility] Comment on above: Performed By: #### L 500.2500, L100.0100 ####[facility] [address] [place], [address] Platelet mean volume (Bld) [Entitic vol] 10.3 fL Normal 6.2-12.0 [facility] Comment on above: Performed By: #### L 500.2500, L100.0100 ####[facility] [address] [place], [address] Platelets (Bld) [#/Vol] 247 10*3/uL Normal 150-450 [facility] Comment on above: Performed By: #### L 500.2500, L100.0100 ####[facility] [address] [place], [address] RBC (Bld) [#/Vol] 4.07 10*6/uL Low 4.2-5.4 [facility] Comment on above: Performed By: #### L 500.2500, L100.0100 ####[facility] [address] [place], [address] RDW SD 50.2 fl High 35.1-43.9 [facility] Comment on above: Performed By: #### L 500.2500, L100.0100 ####[facility] [address] [place], [address] WBC (Bld) [#/Vol] 5.3 10*3/uL Normal 4.4-11.0 [facility] Comment on above: Performed By: #### L 500.2500, L100.0100 ####[facility] [address] [place], [address] Carbon dioxide, total [Moles /volume] in Central venous bloodOrdered By: Rodrigo Sanches on 10-03-2024 CO2 [Moles/Vol] 27.3 mmol/L 21.0-32.0 [facility] Chloride assayOrdered By: Neftaly Sanches on 10-03-2024 Chloride [Moles/Vol] 100 mmol/L 98-108 [facility] Eosinophil percentageOrdered By: Rodrigo Sanches 10-03-2024 Eosinophils/100 WBC (Bld) 5.5 % High 0-5 [facility] Erythrocyte distribution wid th (RBC) [Ratio]Ordered By: Rodrigo Sanches on 10-03-2024 Erythrocyte distribution width (RBC) [Entitic vol] 50.2 fL High 35.1-43.9 [facility] Erythrocyte distribution wid th ratioOrdered By: Rodrigo Sanches on 10-03-2024 Erythrocyte distribution width (RBC) [Ratio] 15.0 % High 11.6-14.6 [facility] Estimation of creatinine darrell aranceOrdered By: Rodrigo Sanches on 10-03-2024 Estimated Creatinine Clearance Calc 56.04 ml/min 50-250 [facility] GFR/1.73 sq M.predicted hans g non-blacks MDRD (S/P/Bld) [Vol rate/Area]Ordered By: Rodrigo Sanches on 10-03-2024 Estimated GFR (MDRD) Non-Af Amer 53 Low >60 [facility] Comment on above: mL/min/1.73m2 CKD-EP I Creatinine Equation (2020) Hematocrit Auto (Bld) [Volum e fraction]Ordered By: Rodrigo Sanches on 10-03-2024 Hematocrit (Bld) [Volume fraction] 37.3 % 37-47 [facility] Hemoglobin measurementOrdere d By: Rodrigo Sanches on 10-03-2024 Hemoglobin (Bld) [Mass/Vol] 11.9 g/dL Low 12.0-15.0 [facility] Immature granulocytes/100 WB C Auto (Bld)Ordered By: Rodrigo Sanches on 10-03-2024 Immature granulocytes/100 WBC (Bld) 0.600 % 0.0-0.9 [facility] Comment on above: IG% - Immature Granu locytes (promyelocytes, myelocytes and metamyelocytes) > 1% indicates that a LEFT SHIFT is Present. Lymphocytes Auto (Unsp spec) [#/Vol]Ordered By: Rodrigo Sanches on 10-03-2024 Lymphocytes (Bld) [#/Vol] 1.20 10*3/uL 0.83-4.51 [facility] Lymphocytes/100 WBC Auto (Un sp spec)Ordered By: Rodrigo Sanches 10-03-2024 Lymphocytes/100 WBC (Bld) 22.7 % 19-41 [facility] MCV (mean corpuscular volume ) determinationOrdered By: Rodrigo Sanches on 10-03-2024 MCV (RBC) [Entitic vol] 91.6 fL 81-99 [facility] Mean corpuscular hemoglobin (MCH) determinationOrdered By: Rodrigo Sanches 10-03-2024 MCH (RBC) [Entitic mass] 29.2 pg 27.0-32.0 [facility] Mean corpuscular hemoglobin concentration (MCHC) determinationOrdered By: Rodrigo Sanches 10-03-2024 MCHC (RBC) [Mass/Vol] 31.9 g/dL Low 32-36 [facility] Mean platelet volume determi nationOrdered By: Rodrigo Sanches on 10-03-2024 Platelet mean volume (Bld) [Entitic vol] 10.3 fL 6.2-12.0 [facility] Monocyte percentageOrdered B y: Rodrigo Sanches on 10-03-2024 Monocytes/100 WBC (Bld) 13.4 % High 0-10 [facility] Neutrophil percentageOrdered By: Rodrigo Sanches on 10-03-2024 Neutrophils/100 WBC (Bld) 57.0 % 47-70 [facility] Nucleated red blood cell per centageOrdered By: Rodrigo Sanches on 10-03-2024 Nucleated RBC/100 WBC (Bld) [Ratio] 0 % 0-5 [facility] Platelet countOrdered By: Neftaly Sanches on 10-03-2024 Platelets (Bld) [#/Vol] 247 10*3/uL 150-450 [facility] Potassium (Unsp spec) [Mass/ Vol]Ordered By: Rodrigo Sanches on 10-03-2024 Potassium [Moles/Vol] 4.4 mmol/L 3.3-5.1 [facility] RBC Auto (Bld) [#/Vol]Ordere d By: Rodrigo Sanches on 10-03-2024 RBC (Bld) [#/Vol] 4.07 10*6/uL Low 4.2-5.4 [facility] Serum creatinine measurement (mass/volume)Ordered By: Rodrigo Sanches on 10-03-2024 Creatinine [Mass/Vol] 1.09 mg/dL 0.70-1.20 [facility] Serum glucose measurement (m ass/volume)Ordered By: Rodrigo Sanches on 10-03-2024 Glucose [Mass/Vol] 96 mg/dL 70-99 [facility] Serum or plasma calcium lisa urement (mass/volume)Ordered By: Rodrigo Sanches on 10-03-2024 Calcium [Mass/Vol] 9.2 mg/dL 7.6-11.0 [facility] Serum or plasma urea nitroge n measurement (mass/volume)Ordered By: Rodrigo Sanches on 10-03-2024 Urea nitrogen [Mass/Vol] 27 mg/dL High 4-19 [facility] Sodium levelOrdered By: Rodrigo Sanches on 10-03-2024 Sodium [Moles/Vol] 139 mmol/L 133-145 [facility] White blood cell (WBC) count Ordered By: Rodrigo Sanches on 10-03-2024 WBC (Bld) [#/Vol] 5.3 10*3/uL 4.4-11.0 [facility] Vancomycin, Trough Levelon 0 10-01-2024 VANCO, TROUGH 13.2 ug/mL Normal 5.0-15.0 [facility] Comment on above: Order Comment: Comme nts: Trough to be drawn 30 mins prior to scheduled [id number] Result Comment: Zackery mmended goal trough ranges [...] therapy recommended for serious lifethreatening infections include:- Goctecgibh-Bumtccyfzdff-Dpskcsokv (Ventilator/Healtcare Associated)-SepsisPLEASE CONTACT PHARMACY SERVICES (#7708) FOR INTERPRETATIONOF RESULTS. Performed By: #### L 501.8820 ####[facility] [address] [place], [address] Vancomycin, Trough Levelon 0 09-29-2024 VANCO, TROUGH 15.6 ug/mL High 5.0-15.0 [facility] Comment on above: Order Comment: Comme nts: DRAW 30 MIN PRIOR TO [id number] Result Comment: Zackery mmended goal trough ranges [...] therapy recommended for serious lifethreatening infections include:- Jvcfmfcigj-Fhdptsftpsjw-Ggafxnnas (Ventilator/Healtcare Associated)-SepsisPLEASE CONTACT PHARMACY SERVICES (#8811) FOR INTERPRETATIONOF RESULTS. Performed By: #### L 501.8820 ####[facility] [address] [place], [address] Basic Metabolic Profile (BMP )on 09-26-2024 BUN/CRE 25.8 RATIO High 10-20 [facility] Comment on above: Performed By: #### L 100.0100, L500.2500 ####[facility] [address] [place], [address] Calcium [Mass/Vol] 9.5 mg/dL Normal 7.6-11.0 [facility] Comment on above: Performed By: #### L 100.0100, L500.2500 ####[facility] [address] [place], [address] Chloride [Moles/Vol] 100 mmol/L Normal 98-108 [facility] Comment on above: Performed By: #### L 100.0100, L500.2500 ####[facility] [address] [place], [address] CO2 [Moles/Vol] 27.3 mmol/L Normal 21.0-32.0 [facility] Comment on above: Performed By: #### L 100.0100, L500.2500 ####[facility] [address] [place], [address] Creatinine [Mass/Vol] 1.13 mg/dL Normal 0.70-1.20 [facility] Comment on above: Performed By: #### L 100.0100, L500.2500 ####[facility] [address] [place], [address] ECRCL 54.32 ml/min Normal 50-250 [facility] Comment on above: Performed By: #### L 100.0100, L500.2500 ####[facility] [address] [place], [address] GAP 12 Normal 5-15 [facility] Comment on above: Performed By: #### L 100.0100, L500.2500 ####[facility] [address] [place], [address] GFR/1.73 sq M.predicted among non-blacks MDRD (S/P/Bld) [Vol rate/Area] 51 mL/min/{1.73_m2} Low >60 [facility] Comment on above: Result Comment: mL/m in/1.73m2 CKD-EPI Creatinine Equation (2020) Performed By: #### L 100.0100, L500.2500 ####[facility] [address] [place], [address] Glucose [Mass/Vol] 100 mg/dL High 70-99 [facility] Comment on above: Performed By: #### L 100.0100, L500.2500 ####[facility] [address] [place], [address] Potassium [Moles/Vol] 5.0 mmol/L Normal 3.3-5.1 [facility] Comment on above: Performed By: #### L 100.0100, L500.2500 ####[facility] [address] [place], [address] Sodium [Moles/Vol] 139 mmol/L Normal 133-145 [facility] Comment on above: Performed By: #### L 100.0100, L500.2500 ####[facility] [address] [place], [address] Urea nitrogen [Mass/Vol] 29 mg/dL High 4-19 [facility] Comment on above: Performed By: #### L 100.0100, L500.2500 ####[facility] [address] [place], [address] CBC W/Diff, Automatedon 03- Absolute Lymph 1.52 X10 3/uL Normal 0.83-4.51 [facility] Comment on above: Performed By: #### L 100.0100, L500.2500 ####[facility] [address] [place], [address] Absolute Neut 5.2 X10 3/uL Normal 2.0-7.7 [facility] Comment on above: Performed By: #### L 100.0100, L500.2500 ####[facility] [address] [place], [address] Basophils/100 WBC (Bld) 1.0 % Normal 0-1 [facility] Comment on above: Performed By: #### L 100.0100, L500.2500 ####[facility] [address] [place], [address] Eosinophils/100 WBC (Bld) 3.9 % Normal 0-5 [facility] Comment on above: Performed By: #### L 100.0100, L500.2500 ####[facility] [address] [place], [address] Erythrocyte distribution width (RBC) [Ratio] 14.6 % Normal 11.6-14.6 [facility] Comment on above: Performed By: #### L 100.0100, L500.2500 ####[facility] [address] [place], [address] Hematocrit (Bld) [Volume fraction] 37.0 % Normal 37-47 [facility] Comment on above: Performed By: #### L 100.0100, L500.2500 ####[facility] [address] [place], [address] Hemoglobin (Bld) [Mass/Vol] 12.1 g/dL Normal 12.0-15.0 [facility] Comment on above: Performed By: #### L 100.0100, L500.2500 ####[facility] [address] [place], [address] IG% 0.800 Normal 0.0-0.9 [facility] Comment on above: Result Comment: IG% - Immature Granulocytes (promyelocytes, myelocytes andmetamyelocytes) > 1% indicates that a LEFT SHIFT is Present. Performed By: #### L 100.0100, L500.2500 ####[facility] [address] [place], [address] Lymphocytes/100 WBC (Bld) 19.3 % Normal 19-41 [facility] Comment on above: Performed By: #### L 100.0100, L500.2500 ####[facility] [address] [place], [address] MCH (RBC) [Entitic mass] 29.7 pg Normal 27.0-32.0 [facility] Comment on above: Performed By: #### L 100.0100, L500.2500 ####[facility] [address] [place], [address] MCHC (RBC) [Mass/Vol] 32.7 g/dL Normal 32-36 [facility] Comment on above: Performed By: #### L 100.0100, L500.2500 ####[facility] [address] [place], [address] MCV (RBC) [Entitic vol] 90.9 fL Normal 81-99 [facility] Comment on above: Performed By: #### L 100.0100, L500.2500 ####[facility] [address] [place], [address] Monocytes/100 WBC (Bld) 8.5 % Normal 0-10 [facility] Comment on above: Performed By: #### L 100.0100, L500.2500 ####[facility] [address] [place], [address] Neutrophils/100 WBC (Bld) 66.5 % Normal 47-70 [facility] Comment on above: Performed By: #### L 100.0100, L500.2500 ####[facility] [address] [place], [address] Nucleated RBC (Bld) [#/Vol] 0 10*3/uL Normal 0-5 [facility] Comment on above: Performed By: #### L 100.0100, L500.2500 ####[facility] [address] [place], [address] Platelet mean volume (Bld) [Entitic vol] 10.2 fL Normal 6.2-12.0 [facility] Comment on above: Performed By: #### L 100.0100, L500.2500 ####[facility] [address] [place], [address] Platelets (Bld) [#/Vol] 390 10*3/uL Normal 150-450 [facility] Comment on above: Performed By: #### L 100.0100, L500.2500 ####[facility] [address] [place], [address] RBC (Bld) [#/Vol] 4.07 10*6/uL Low 4.2-5.4 [facility] Comment on above: Performed By: #### L 100.0100, L500.2500 ####[facility] [address] [place], [address] RDW SD 47.8 fl High 35.1-43.9 [facility] Comment on above: Performed By: #### L 100.0100, L500.2500 ####[facility] [address] [place], [address] WBC (Bld) [#/Vol] 7.9 10*3/uL Normal 4.4-11.0 [facility] Comment on above: Performed By: #### L 100.0100, L500.2500 ####[facility] [address] [place], [place], [address] Vancomycin, Trough Levelon 0 09-24-2024 VANCO, TROUGH 13.3 ug/mL Normal 5.0-15.0 [facility] Comment on above: Order Comment: Comme nts: Trough to be drawn 30 mins prior to scheduled [id number] Result Comment: Zackery mmended goal trough ranges [...] therapy recommended for serious lifethreatening infections include:- Mseqahvwev-Pesfstdnxjxk-Ormthofhv (Ventilator/Healtcare Associated)-SepsisPLEASE CONTACT PHARMACY SERVICES (#3012) FOR INTERPRETATIONOF RESULTS. Performed By: #### L 501.8820 ####[facility] [address] [facility] [place], [place], [address] Vancomycin, Trough Levelon 0 09-22-2024 VANCO, TROUGH 12.4 ug/mL Normal 5.0-15.0 [facility] Comment on above: Order Comment: 0900 Result [...] therapy recommended for serious lifethreatening infections include:- Atymhjdixm-Hfgzfxzpluvz-Hadqskpkz (Ventilator/Healtcare Associated)-SepsisPLEASE CONTACT PHARMACY SERVICES (#6980) FOR INTERPRETATIONOF RESULTS. Performed By: #### L 501.8820 ####[facility] [address] [place], [address] Bilirubin, totalOrdered By: Rodrigo Sanches on 09-21-2024 Bilirubin [Mass/Vol] 0.22 mg/dL 0.00-1.30 [facility] Comprehensive Metabolic Prof ilon 09-21-2024 Albumin [Mass/Vol] 3.2 g/dL Low 3.4-4.8 [facility] Comment on above: Performed By: #### L 500.4050 ####[facility] [address] [place], [address] Albumin/Globulin [Mass ratio] 0.9 {ratio} Normal 0.9-2.4 [facility] Comment on above: Performed By: #### L 500.4050 ####[facility] [address] [place], [address] ALK PHOS 120 U/L High 35-104 [facility] Comment on above: Performed By: #### L 500.4050 ####[facility] [address] [place], [address] ALT [Catalytic activity/Vol] 15 U/L Normal <=34 [facility] Comment on above: Performed By: #### L 500.4050 ####[facility] [address] [place], [address] AST [Catalytic activity/Vol] 23 U/L Normal <=31 [facility] Comment on above: Performed By: #### L 500.4050 ####[facility] [address] [place], [address] Bilirubin [Mass/Vol] 0.22 mg/dL Normal 0.00-1.30 [facility] Comment on above: Performed By: #### L 500.4050 ####[facility] [address] [place], [address] BUN/CRE 21.1 RATIO High 10-20 [facility] Comment on above: Performed By: #### L 500.4050 ####[facility] [address] [place], [address] Calcium [Mass/Vol] 9.2 mg/dL Normal 7.6-11.0 [facility] Comment on above: Performed By: #### L 500.4050 ####[facility] [address] [place], [address] Chloride [Moles/Vol] 99 mmol/L Normal 98-108 [facility] Comment on above: Performed By: #### L 500.4050 ####[facility] [address] [place], [address] CO2 [Moles/Vol] 27.1 mmol/L Normal 21.0-32.0 [facility] Comment on above: Performed By: #### L 500.4050 ####[facility] [address] [place], [address] ECRCL 51.50 ml/min Normal 50-250 [facility] Comment on above: Performed By: #### L 500.4050 ####[facility] [address] [place], [address] GAP 12 Normal 5-15 [facility] Comment on above: Performed By: #### L 500.4050 ####[facility] [address] [place], [address] GFR/1.73 sq M.predicted among non-blacks MDRD (S/P/Bld) [Vol rate/Area] 48 mL/min/{1.73_m2} Low >60 [facility] Comment on above: Result Comment: mL/m in/1.73m2 CKD-EPI Creatinine Equation (2020) Performed By: #### L 500.4050 ####[facility] [address] [place], [address] Globulin (S) [Mass/Vol] 3.5 g/dL Normal 2.2-4.2 [facility] Comment on above: Performed By: #### L 500.4050 ####[facility] [address] [place], [address] Potassium [Moles/Vol] 4.6 mmol/L Normal 3.3-5.1 [facility] Comment on above: Performed By: #### L 500.4050 ####[facility] [address] [place], [address] Sodium [Moles/Vol] 138 mmol/L Normal 133-145 [facility] Comment on above: Performed By: #### L 500.4050 ####[facility] [address] [place], [address] T PROT 6.7 g/dL Normal 5.9-8.4 [facility] Comment on above: Performed By: #### L 500.4050 ####[facility] [address] [place], [address] Creatinine [Mass/Vol] 1.19 mg/dL Normal 0.70-1.20 [facility] Comment on above: Performed By: #### L 500.4050 ####[facility] [address] [place], [address] Glucose [Mass/Vol] 99 mg/dL Normal 70-99 [facility] Comment on above: Performed By: #### L 500.4050 ####[facility] [address] [place], [address] Urea nitrogen [Mass/Vol] 25 mg/dL High 4-19 [facility] Comment on above: Performed By: #### L 500.4050 ####[facility] [address] [place], [address] Laboratory - Chemistry and C hemistry - challengeOrdered By: Rodrigo Sanches on 09-21-2024 AST [Catalytic activity/Vol] 23 U/L <32 [facility] Serum globulin measurementOr dered By: Rodrigo Sanches on 09-21-2024 Globulin (S) [Mass/Vol] 3.5 g/dL 2.2-4.2 [facility] Serum or plasma alanine gao otransferase (ALT) measurementOrdered By: Rodrigo Sanches on 09-21-2024 ALT [Catalytic activity/Vol] 15 U/L <35 [facility] Serum or plasma albumin lisa urement (mass/volume)Ordered By: Rodrigo Sanches 09-21-2024 Albumin [Mass/Vol] 3.2 g/dL Low 3.4-4.8 [facility] Serum or plasma albumin/glob ulin mass ratioOrdered By: Rodrigo Sanches 09-21-2024 Albumin/Globulin [Mass ratio] 0.9 {ratio} 0.9-2.4 [facility] Serum or plasma alkaline bee sphatase measurementOrdered By: Rodrigo Sanches 09-21-2024 ALP [Catalytic activity/Vol] 120 U/L High 35-104 [facility] Total proteinOrdered By: Rodrigo Sanches 09-21-2024 Protein [Mass/Vol] 6.7 g/dL 5.9-8.4 [facility] Vancomycin, Trough Levelon 0 09-20-2024 VANCO, TROUGH 9.9 ug/mL Normal 5.0-15.0 [facility] Comment on above: Order Comment: 0800 Result Comment: VANC OMYCIN STANDARED DRUG THERAPY TROUGH LEVEL: 5.0 - 15.0 mg/LVANCOMYCIN HIGH INTENSITY THERAPY TROUGH LEVEL: 15.0 - 20.0 mg/LHigh Intensity therapy recommended for serious lifethreatening infections include:- Vvgigohrct-Upjmqyesyqqj-Aftgacdsn (Ventilator/Healtcare Associated)-SepsisPLEASE CONTACT PHARMACY SERVICES (#6995) FOR INTERPRETATIONOF RESULTS. AMENDED REPORT 09/20/24 0644 VANCO, TROUGH previously reported as: 10.3 ug/mLRecommended [...] therapy recommended for serious lifethreatening infections include:- Skutnmeqrv-Mwwlyudceqlu-Hsewbqwtp (Ventilator/Healtcare Associated)-SepsisPLEASE CONTACT PHARMACY SERVICES (#8348) FOR INTERPRETATIONOF RESULTS.Recommended goal trough ranges are [...] therapy recommended for serious lifethreatening infections include:- Dalewnzwzy-Zafoaleafdtr-Clwcvdjqd (Ventilator/Healtcare Associated)-SepsisPLEASE CONTACT PHARMACY SERVICES (#8372) FOR INTERPRETATIONOF RESULTS. Performed By: #### L 501.8820 ####[facility] [address] [facility] [place], [address] Basic Metabolic Profile (BMP )on 09-19-2024 BUN/CRE 18.6 RATIO Normal - [facility] Comment on above: Performed By: #### L 100.0100, L500.2500 ####[facility] [address] [place], [address] Calcium [Mass/Vol] 9.7 mg/dL Normal 7.6-11.0 [facility] Comment on above: Performed By: #### L 100.0100, L500.2500 ####[facility] [address] [place], [address] Chloride [Moles/Vol] 97 mmol/L Low 98-108 [facility] Comment on above: Performed By: #### L 100.0100, L500.2500 ####[facility] [address] [place], [address] CO2 [Moles/Vol] 30.4 mmol/L Normal 21.0-32.0 [facility] Comment on above: Performed By: #### L 100.0100, L500.2500 ####[facility] [address] [place], [address] Creatinine [Mass/Vol] 1.07 mg/dL Normal 0.70-1.20 [facility] Comment on above: Performed By: #### L 100.0100, L500.2500 ####[facility] [address] [place], [address] ECRCL 57.28 ml/min Normal 50-250 [facility] Comment on above: Performed By: #### L 100.0100, L500.2500 ####[facility] [address] [place], [address] GAP 14 Normal 5-15 [facility] Comment on above: Performed By: #### L 100.0100, L500.2500 ####[facility] [address] [place], [address] GFR/1.73 sq M.predicted among non-blacks MDRD (S/P/Bld) [Vol rate/Area] 54 mL/min/{1.73_m2} Low >60 [facility] Comment on above: Result Comment: mL/m in/1.73m2 CKD-EPI Creatinine Equation (2020) Performed By: #### L 100.0100, L500.2500 ####[facility] [address] [place], [address] Glucose [Mass/Vol] 101 mg/dL High 70-99 [facility] Comment on above: Performed By: #### L 100.0100, L500.2500 ####[facility] [address] [place], [address] Potassium [Moles/Vol] 4.6 mmol/L Normal 3.3-5.1 [facility] Comment on above: Performed By: #### L 100.0100, L500.2500 ####[facility] [address] [place], [address] Sodium [Moles/Vol] 142 mmol/L Normal 133-145 [facility] Comment on above: Performed By: #### L 100.0100, L500.2500 ####[facility] [address] [place], [address] Urea nitrogen [Mass/Vol] 20 mg/dL High 4-19 [facility] Comment on above: Performed By: #### L 100.0100, L500.2500 ####[facility] [address] [place], [address] CBC W/Diff, Automatedon 03- 0-2024 Absolute Lymph 1.49 X10 3/uL Normal 0.83-4.51 [facility] Comment on above: Performed By: #### L 100.0100, L500.2500 ####[facility] [address] [place], [address] Absolute Neut 7.6 X10 3/uL Normal 2.0-7.7 [facility] Comment on above: Performed By: #### L 100.0100, L500.2500 ####[facility] [address] [place], [address] Basophils/100 WBC (Bld) 0.8 % Normal 0-1 [facility] Comment on above: Performed By: #### L 100.0100, L500.2500 ####[facility] [address] [place], [address] Eosinophils/100 WBC (Bld) 2.9 % Normal 0-5 [facility] Comment on above: Performed By: #### L 100.0100, L500.2500 ####[facility] [address] [place], [address] Erythrocyte distribution width (RBC) [Ratio] 14.1 % Normal 11.6-14.6 [facility] Comment on above: Performed By: #### L 100.0100, L500.2500 ####[facility] [address] [place], [address] Hematocrit (Bld) [Volume fraction] 38.9 % Normal 37-47 [facility] Comment on above: Performed By: #### L 100.0100, L500.2500 ####[facility] [address] [place], [address] Hemoglobin (Bld) [Mass/Vol] 12.3 g/dL Normal 12.0-15.0 [facility] Comment on above: Performed By: #### L 100.0100, L500.2500 ####[facility] [address] [place], [address] IG% 1.200 High 0.0-0.9 [facility] Comment on above: Result Comment: IG% - Immature Granulocytes (promyelocytes, myelocytes andmetamyelocytes) > 1% indicates that a LEFT SHIFT is Present. Performed By: #### L 100.0100, L500.2500 ####[facility] [address] [place], [address] Lymphocytes/100 WBC (Bld) 14.6 % Low 19-41 [facility] Comment on above: Performed By: #### L 100.0100, L500.2500 ####[facility] [address] [place], [address] MCH (RBC) [Entitic mass] 29.4 pg Normal 27.0-32.0 [facility] Comment on above: Performed By: #### L 100.0100, L500.2500 ####[facility] [address] [place], [address] MCHC (RBC) [Mass/Vol] 31.6 g/dL Low 32-36 [facility] Comment on above: Performed By: #### L 100.0100, L500.2500 ####[facility] [address] [place], [address] MCV (RBC) [Entitic vol] 93.1 fL Normal 81-99 [facility] Comment on above: Performed By: #### L 100.0100, L500.2500 ####[facility] [address] [place], [address] Monocytes/100 WBC (Bld) 6.3 % Normal 0-10 [facility] Comment on above: Performed By: #### L 100.0100, L500.2500 ####[facility] [address] [place], [address] Neutrophils/100 WBC (Bld) 74.2 % High 47-70 [facility] Comment on above: Performed By: #### L 100.0100, L500.2500 ####[facility] [address] [place], [address] Nucleated RBC (Bld) [#/Vol] 0 10*3/uL Normal 0-5 [facility] Comment on above: Performed By: #### L 100.0100, L500.2500 ####[facility] [address] [place], [address] Platelet mean volume (Bld) [Entitic vol] 9.5 fL Normal 6.2-12.0 [facility] Comment on above: Performed By: #### L 100.0100, L500.2500 ####[facility] [address] [place], [address] Platelets (Bld) [#/Vol] 349 10*3/uL Normal 150-450 [facility] Comment on above: Performed By: #### L 100.0100, L500.2500 ####[facility] [address] [place], [address] RBC (Bld) [#/Vol] 4.18 10*6/uL Low 4.2-5.4 [facility] Comment on above: Performed By: #### L 100.0100, L500.2500 ####[facility] [address] [place], [address] RDW SD 48.7 fl High 35.1-43.9 [facility] Comment on above: Performed By: #### L 100.0100, L500.2500 ####[facility] [address] [place], [address] WBC (Bld) [#/Vol] 10.2 10*3/uL Normal 4.4-11.0 [facility] Comment on above: Performed By: #### L 100.0100, L500.2500 ####[facility] [address] [place], [address] Culture, Blood (WB)on 2024 CUB No growth in 5 days. Normal [facility] Comment on above: Performed By: #### M 200.1000 ####[facility] [address] [place], [address] Vancomycin trough [Mass/Vol] Ordered By: Fahad Cavanaugh on 09-18-2024 Vancomycin Level Trough 10.7 ug/mL 5.0-15.0 [facility] Comment on above: Recommended goal tro ugh [...] therapy recommended for serious lifethreatening infections include:- Xugfbxxtde-Piofsngbjife-Zpolpfeog (Ventilator/Healtcare Associated)-Sepsis PLEASE CONTACT PHARMACY SERVICES (#8279) FOR INTERPRETATIONOF RESULTS. Vancomycin, Trough Levelon 0 09-18-2024 VANCO, TROUGH 10.7 ug/mL Normal 5.0-15.0 [facility] Comment on above: Order Comment: Comme nts: DRAW 30 MIN PRIOR TO [id number] Result Comment: Zackery mmended goal trough ranges [...] therapy recommended for serious lifethreatening infections include:- Glruvbuggj-Txhbvkmeixhk-Jupeahgpn (Ventilator/Healtcare Associated)-SepsisPLEASE CONTACT PHARMACY SERVICES (#6816) FOR INTERPRETATIONOF RESULTS. Performed By: #### L 481.8838 ####[facility] [address] [place], [place], [address] C. difficile DNA RANJIT+probe Q l (Unsp spec)Ordered By: Claire Mayorga on 09-17-2024 Clostridioides difficile (PCR) [facility] CDIFF (PCR)on 09-17-2024 CDIFF Normal [facility] Comment on above: Performed By: #### M 100.6796 ####[facility] [address] [place], [address] Culture, Anaerobic Any Sourc akosua 09-17-2024 CUAN UNK UNK Left Posterior Synovium - collected in [place] No anaerobic bacteria isolated. [facility] Comment on above: Performed By: #### M 100.2000, M600.2200, M300.2000, M100.3000, M300.3000, M600.2000, M100.4001 ####[facility] [address] [place], [address] CUAN UNK UNK Left Humeral Membrane - collected in [place] No anaerobic bacteria isolated. Normal [facility] Comment on above: Performed By: #### M 100.4001, M600.2000, M300.2000, M300.3000, M100.2000, M100.3000, M600.2200 ####[facility] [address] [place], [address] CUAN UNK UNK Left Glenosphere Membrane - collected in [place] No anaerobic bacteria isolated. Normal [facility] Comment on above: Performed By: #### M 100.3000, M300.2000, M600.2200, M300.3000, M100.2000, M600.2000, M100.4001 ####[facility] [address] [place], [address] CUAN Results called on 09/12/24-1023 by FOREST to [phone]. UNK UNK No anaerobic bacteria isolated. Normal [facility] Comment on above: Performed By: #### M 100.4001, M100.2900, M100.2000, M300.3000, L200.0400, M600.2000, M300.2000 ####[facility] [address] [place], [address] 12 Lead EKGon 09-16-2024 12 Lead EKG Normal [facility] Absolute neutrophil countOrd ered By: Emili Lee on 09-16-2024 Neutrophils (Bld) [#/Vol] 7.1 10*3/uL 2.0-7.7 [facility] Anion gap in Serum or Plasma Ordered By: Emili Lee on 09-16-2024 Anion gap [Moles/Vol] 7 mmol/L 5-15 [facility] Automated blood erythrocyte countOrdered By: Emili Lee on 09-16-2024 RBC (Bld) [#/Vol] 3.69 10*6/uL Low 4.2-5.4 [facility] Comment on above: Performed By: #### L 100.0100, L500.2500 ####[facility] [address] [place], [address] Automated blood hematocrit ( percentage)Ordered By: Emili Lee on 09-16-2024 Hematocrit (Bld) [Volume fraction] 35.3 % Low 37-47 [facility] Comment on above: Performed By: #### L 100.0100, L500.2500 ####[facility] [address] [place], [address] Automated lymphocyte count a s percentage of total leukocytesOrdered By: Emili Lee on 09-16-2024 Lymphocytes/100 WBC (Bld) 11.6 % Low 19-41 [facility] Comment on above: Performed By: #### L 100.0100, L500.2500 ####[facility] [address] [place], [address] BUN/creatinine ratioOrdered By: Emili Lee on 09-16-2024 Urea nitrogen/Creatinine [Mass ratio] 25.4 mg/mg High [facility]20 [facility] Basic Metabolic Profile (BMP )on 09-16-2024 BUN/CRE 25.4 RATIO High [facility]20 [facility] Comment on above: Performed By: #### L 100.0100, L500.2500 ####[facility] [address] [place], [address] ECRCL 65.28 ml/min Normal 50-250 [facility] Comment on above: Performed By: #### L 100.0100, L500.2500 ####[facility] [address] [place], [address] GAP 7 Normal 5-15 [facility] Comment on above: Performed By: #### L 100.0100, L500.2500 ####[facility] [address] [place], [address] GFR/1.73 sq M.predicted among non-blacks MDRD (S/P/Bld) [Vol rate/Area] 64 mL/min/{1.73_m2} Normal >60 [facility] Comment on above: Result Comment: mL/m in/1.73m2 CKD-EPI Creatinine Equation (2020) Performed By: #### L 100.0100, L500.2500 ####[facility] [address] [place], [address] Basophil percentageOrdered B y: Emili Lee on 09-16-2024 Basophils/100 WBC (Bld) 0.4 % Normal 0-1 [facility] Comment on above: Performed By: #### L 100.0100, L500.2500 ####[facility] [address] [place], [address] Body Fluid Culton 09-16-2024 BFC Normal [facility] Comment on above: Performed By: #### M 100.4001, M100.2900, M100.2000, M300.3000, L200.0400, M600.2000, M300.2000 ####[facility] [address] [place], [address] CBC W/Diff, Automatedon 08-31 Absolute Lymph 1.07 X10 3/uL Normal 0.83-4.51 [facility] Comment on above: Performed By: #### L 100.0100, L500.2500 ####[facility] [address] [place], [address] Absolute Neut 7.1 X10 3/uL Normal 2.0-7.7 [facility] Comment on above: Performed By: #### L 100.0100, L500.2500 ####[facility] [address] [place], [address] IG% 0.900 Normal 0.0-0.9 [facility] Comment on above: Result Comment: IG% - Immature Granulocytes (promyelocytes, myelocytes andmetamyelocytes) > 1% indicates that a LEFT SHIFT is Present. Performed By: #### L 100.0100, L500.2500 ####[facility] [address] [place], [address] Nucleated RBC (Bld) [#/Vol] 0 10*3/uL Normal 0-5 [facility] Comment on above: Performed By: #### L 100.0100, L500.2500 ####[facility] [address] [place], [address] RDW SD 50.0 fl High 35.1-43.9 [facility] Comment on above: Performed By: #### L 100.0100, L500.2500 ####[facility] [address] [place], [address] Carbon dioxide, total [Moles /volume] in Central venous bloodOrdered By: Emili Lee on 09-16-2024 CO2 [Moles/Vol] 32.4 mmol/L High 21.0-32.0 [facility] Comment on above: Performed By: #### L 100.0100, L500.2500 ####[facility] [address] [place], [address] Chloride assayOrdered By: Anna Lee on 09-16-2024 Chloride [Moles/Vol] 101 mmol/L Normal 98-108 [facility] Comment on above: Performed By: #### L 100.0100, L500.2500 ####[facility] [address] [place], [address] Consultation - Infectious Dx on 09-16-2024 Consultation - Infectious Dx Normal [facility] Electrocardiogram reportOrde red By: Tejal Holly on 09-16-2024 EKG study [facility] Cardiovascular Services [address] [facility] [place] [address] 12 Lead EKG 09/12/24 0804 MR#: [id number] Acct: [id number] Name: OSCAR WOO Rep #:[id number] : 1950 74 From: Tejal aquino MD Attending Dr: Dr. Fahad Cavanaugh MD Status: ADM IN Ordering Dr: Omar Walters MD Date: 08/31 01/24 [place] [facility] [place]: F C Admitted: 09/14/24 Test Reason [...] ECG Confirmed by ELAYNE COTTER, MARIELENA ([id number]), makeup editor TRINITY ORTIZ ([id number]) on09/16/2024 11:30:54 AM Referred By: Fahad Cavanaugh Confirmed By: MARIELENA HOLLY MD 09/16/24 1130 Date _ Tejal Holly MD CC: Dr. Omar Walters MD; Dr. Kamar Grimes MD; Dr. Fahad Cavanaugh MD ~ Signed [facility] Work Phone: Eosinophil percentageOrdered By: Emili Lee on 09-16-2024 Eosinophils/100 WBC (Bld) 3.2 % Normal 0-5 [facility] Comment on above: Performed By: #### L 100.0100, L500.2500 ####[facility] [address] [place], [address] Erythrocyte distribution wid th ratioOrdered By: Emili Lee on 09-16-2024 Erythrocyte distribution width (RBC) [Ratio] 14.3 % Normal 11.6-14.6 [facility] Comment on above: Performed By: #### L 100.0100, L500.2500 ####[facility] [address] [place], [place], [address] Erythrocyte distribution wid th standard deviationOrdered By: Emili Lee on 09-16-2024 Erythrocyte distribution width (RBC) [Entitic vol] 50.0 fL High 35.1-43.9 [facility] Estimation of creatinine darrell aranceOrdered By: Emili Lee on 09-16-2024 Estimated Creatinine Clearance Calc 65.28 ml/min 50-250 [facility] GFR/1.73 sq M.predicted hans g non-blacks MDRD (S/P/Bld) [Vol rate/Area]Ordered By: Emili Lee on 09-16-2024 Estimated GFR (MDRD) Non-Af Amer 64 >60 [facility] Comment on above: mL/min/1.73m2 CKD-EP I Creatinine Equation (2020) Hemoglobin measurementOrdere d By: Emili Lee on 09-16-2024 Hemoglobin (Bld) [Mass/Vol] 11.0 g/dL Low 12.0-15.0 [facility] Comment on above: Performed By: #### L 100.0100, L500.2500 ####[facility] [address] [place], [place], [id number] Immature granulocytes/100 WB C Auto (Bld)Ordered By: Emili Lee on 09-16-2024 Immature granulocytes/100 WBC (Bld) 0.900 % 0.0-0.9 [facility] Comment on above: IG% - Immature Granu locytes (promyelocytes, myelocytes and metamyelocytes) > 1% indicates that a LEFT SHIFT is Present. Lymphocytes Auto (Unsp spec) [#/Vol]Ordered By: Emili Lee on 09-16-2024 Lymphocytes (Bld) [#/Vol] 1.07 10*3/uL 0.83-4.51 [facility] MCV (mean corpuscular volume ) determinationOrdered By: Emili Lee on 09-16-2024 MCV (RBC) [Entitic vol] 95.7 fL Normal 81-99 [facility] Comment on above: Performed By: #### L 100.0100, L500.2500 ####[facility] [address] [place], [address] Mean corpuscular hemoglobin (MCH) determinationOrdered By: Emili Lee on 09-16-2024 MCH (RBC) [Entitic mass] 29.8 pg Normal 27.0-32.0 [facility] Comment on above: Performed By: #### L 100.0100, L500.2500 ####[facility] [address] [place], [address] Mean corpuscular hemoglobin concentration (MCHC) determinationOrdered By: Emili Lee on 09-16-2024 MCHC (RBC) [Mass/Vol] 31.2 g/dL Low 32-36 [facility] Comment on above: Performed By: #### L 100.0100, L500.2500 ####[facility] [address] [place], [address] Mean platelet volume determi nationOrdered By: Emili Lee on 09-16-2024 Platelet mean volume (Bld) [Entitic vol] 9.4 fL Normal 6.2-12.0 [facility] Comment on above: Performed By: #### L 100.0100, L500.2500 ####[facility] [address] [place], [address] Monocyte percentageOrdered B y: Emili Lee on 09-16-2024 Monocytes/100 WBC (Bld) 7.0 % Normal 0-10 [facility] Comment on above: Performed By: #### L 100.0100, L500.2500 ####[facility] [address] [place], [address] Neutrophil percentageOrdered By: Emili Lee on 09-16-2024 Neutrophils/100 WBC (Bld) 76.9 % High 47-70 [facility] Comment on above: Performed By: #### L 100.0100, L500.2500 ####[facility] [address] [place], [address] Nucleated red blood cell per centageOrdered By: Emili Lee on 09-16-2024 Nucleated RBC/100 WBC (Bld) [Ratio] 0 % 0-5 [facility] Platelet countOrdered By: Anna Lee on 09-16-2024 Platelets (Bld) [#/Vol] 261 10*3/uL Normal 150-450 [facility] Comment on above: Performed By: #### L 100.0100, L500.2500 ####[facility] [address] [facility] [address] Potassium measurement (mass/ volume)Ordered By: Emili Lee on 09-16-2024 Potassium [Moles/Vol] 4.8 mmol/L Normal 3.3-5.1 [facility] Comment on above: Performed By: #### L 100.0100, L500.2500 ####[facility] [address] [place], [address] Serum creatinine measurement (mass/volume)Ordered By: Emili Lee on 09-16-2024 Creatinine [Mass/Vol] 0.93 mg/dL Normal 0.70-1.20 [facility] Comment on above: Performed By: #### L 100.0100, L500.2500 ####[facility] [address] [place], [address] Serum glucose measurement (m ass/volume)Ordered By: Emili Lee on 09-16-2024 Glucose [Mass/Vol] 108 mg/dL High 70-99 [facility] Comment on above: Performed By: #### L 100.0100, L500.2500 ####[facility] [address] [place], [address] Serum or plasma calcium lisa urement (mass/volume)Ordered By: Emili Lee on 09-16-2024 Calcium [Mass/Vol] 8.9 mg/dL Normal 7.6-11.0 [facility] Comment on above: Performed By: #### L 100.0100, L500.2500 ####[facility] [address] [place], [address] Serum or plasma urea nitroge n measurement (mass/volume)Ordered By: Emili Lee on 09-16-2024 Urea nitrogen [Mass/Vol] 24 mg/dL High 4-19 [facility] Comment on above: Performed By: #### L 100.0100, L500.2500 ####[facility] [address] [place], [address] Sodium levelOrdered By: Stephen Lee on 09-16-2024 Sodium [Moles/Vol] 140 mmol/L Normal 133-145 [facility] Comment on above: Performed By: #### L 100.0100, L500.2500 ####[facility] [address] [place], [address] Vancomycin [Mass/Vol]Ordered By: Fahad Cavanaugh on 09-16-2024 Random Vancomycin Level 14.4 ug/mL 0.0-15.0 [facility] Comment on above: VANCOMYCIN STANDARD DRUG THERAPY: CRITICAL VALUE IS > 15.0 mg/L VANCOMYCIN HIGH INTENSITY THERAPY: CRITICAL VALUE IS > 20.0 mg/L PLEASE CONTACT PHARMACY SERVICES (#[id number]) FOR INTERPRETATIONOF RESULTS. THIS RESULT DOES NOT REPRESENT A PEAK OR TROUGHLEVEL FOR THIS DRUG. Vancomycin, Random Levelon 0 09-16-2024 VANCO, RANDOM 14.4 ug/mL Normal 0.0-15.0 [facility] Comment on above: Result Comment: VANC OMYCIN STANDARD DRUG THERAPY: CRITICAL VALUE IS > 15.0 mg/LVANCOMYCIN HIGH INTENSITY THERAPY: CRITICAL VALUE IS > 20.0 mg/LPLEASE CONTACT PHARMACY SERVICES (#[id number]) FOR INTERPRETATIONOF RESULTS. THIS RESULT DOES NOT REPRESENT A PEAK OR TROUGHLEVEL FOR THIS DRUG. Performed By: #### L 501.8850 ####[facility] [address] [place], [address] White blood cell (WBC) count Ordered By: Emili Lee on 09-16-2024 WBC (Bld) [#/Vol] 9.2 10*3/uL Normal 4.4-11.0 [facility] Comment on above: Performed By: #### L 100.0100, L500.2500 ####[facility] [address] [place], [address] Wound Cultureon 09-16-2024 [facility] Comment on above: Performed By: #### M 100.4001, M600.2000, M300.2000, M300.3000, M100.2000, M100.3000, M600.2200 ####[facility] [address] [place], [address] [facility] Comment on above: Performed By: #### M 100.2000, M600.2200, M300.2000, M100.3000, M300.3000, M600.2000, M100.4001 ####[facility] [address] [place], [address] [facility] Comment on above: Performed By: #### M 100.3000, M300.2000, M600.2200, M300.3000, M100.2000, M600.2000, M100.4001 ####[facility] [address] [place], [address] Basic Metabolic Profile (BMP )on 09-15-2024 BUN/CRE 29.0 RATIO High 10-20 [facility] Comment on above: Performed By: #### L 500.2500, L100.0500 ####[facility] [address] [place], [address] Calcium [Mass/Vol] 8.4 mg/dL Normal 7.6-11.0 [facility] Comment on above: Performed By: #### L 500.2500, L100.0500 ####[facility] [address] [place], [address] Chloride [Moles/Vol] 99 mmol/L Normal 98-108 [facility] Comment on above: Performed By: #### L 500.2500, L100.0500 ####[facility] [address] [place], [address] CO2 [Moles/Vol] 24.7 mmol/L Normal 21.0-32.0 [facility] Comment on above: Performed By: #### L 500.2500, L100.0500 ####[facility] [address] [place], [address] Creatinine [Mass/Vol] 1.12 mg/dL Normal 0.70-1.20 [facility] Comment on above: Performed By: #### L 500.2500, L100.0500 ####[facility] [address] [place], [address] ECRCL 54.21 ml/min Normal 50-250 [facility] Comment on above: Performed By: #### L 500.2500, L100.0500 ####[facility] [address] [place], [address] GAP 11 Normal 5-15 [facility] Comment on above: Performed By: #### L 500.2500, L100.0500 ####[facility] [address] [place], [address] GFR/1.73 sq M.predicted among non-blacks MDRD (S/P/Bld) [Vol rate/Area] 51 mL/min/{1.73_m2} Low >60 [facility] Comment on above: Result Comment: mL/m in/1.73m2 CKD-EPI Creatinine Equation (2020) Performed By: #### L 500.2500, L100.0500 ####[facility] [address] [place], [address] Glucose [Mass/Vol] 100 mg/dL High 70-99 [facility] Comment on above: Performed By: #### L 500.2500, L100.0500 ####[facility] [address] [place], [address] Potassium [Moles/Vol] 4.1 mmol/L Normal 3.3-5.1 [facility] Comment on above: Result Comment: Hemo lysis present, Results??could be affected.?? Performed By: #### L 500.2500, L100.0500 ####[facility] [address] [place], [address] Sodium [Moles/Vol] 135 mmol/L Normal 133-145 [facility] Comment on above: Performed By: #### L 500.2500, L100.0500 ####[facility] [address] [place], [address] Urea nitrogen [Mass/Vol] 33 mg/dL High 4-19 [facility] Comment on above: Performed By: #### L 500.2500, L100.0500 ####[facility] [address] [place], [address] CBC-Complete Blood Cnt No Di ffon 09-15-2024 Erythrocyte distribution width (RBC) [Ratio] 14.1 % Normal 11.6-14.6 [facility] Comment on above: Performed By: #### L 500.2500, L100.0500 ####[facility] [address] [place], [address] Hematocrit (Bld) [Volume fraction] 36.4 % Low 37-47 [facility] Comment on above: Performed By: #### L 500.2500, L100.0500 ####[facility] [address] [place], [address] Hemoglobin (Bld) [Mass/Vol] 11.5 g/dL Low 12.0-15.0 [facility] Comment on above: Performed By: #### L 500.2500, L100.0500 ####[facility] [address] [place], [address] MCH (RBC) [Entitic mass] 29.4 pg Normal 27.0-32.0 [facility] Comment on above: Performed By: #### L 500.2500, L100.0500 ####[facility] [address] [place], [address] MCHC (RBC) [Mass/Vol] 31.6 g/dL Low 32-36 [facility] Comment on above: Performed By: #### L 500.2500, L100.0500 ####[facility] [address] [place], [address] MCV (RBC) [Entitic vol] 93.1 fL Normal 81-99 [facility] Comment on above: Performed By: #### L 500.2500, L100.0500 ####[facility] [address] [place], [address] Platelet mean volume (Bld) [Entitic vol] 10.0 fL Normal 6.2-12.0 [facility] Comment on above: Performed By: #### L 500.2500, L100.0500 ####[facility] [address] [place], [address] Platelets (Bld) [#/Vol] 238 10*3/uL Normal 150-450 [facility] Comment on above: Performed By: #### L 500.2500, L100.0500 ####[facility] [address] [place], [address] RBC (Bld) [#/Vol] 3.91 10*6/uL Low 4.2-5.4 [facility] Comment on above: Performed By: #### L 500.2500, L100.0500 ####[facility] [address] [place], [address] RDW SD 48.1 fl High 35.1-43.9 [facility] Comment on above: Performed By: #### L 500.2500, L100.0500 ####[facility] [address] [place], [address] WBC (Bld) [#/Vol] 9.6 10*3/uL Normal 4.4-11.0 [facility] Comment on above: Performed By: #### L 500.2500, L100.0500 ####[facility] [address] [place], [address] Chest PA and Lateralon 09-15 Chest PA and Lateral Normal [facility] M100.019on 09-15-2024 M100.019 Negative Normal [facility] Comment on above: Performed By: #### M 100.638, M100.019 ####[facility] [address] [place], [address] RESPIRATORY PANEL MOLECULARo n 09-15-2024 RP PANEL Normal [facility] Comment on above: Performed By: #### M 100.638, M100.019 ####[facility] [address] [place], [address] Respiratory pathogens DNA an d RNA panel RANJIT+probe (Resp)Ordered By: Emili Lee on 09-15-2024 Respiratory Panel (PCR) [facility] Oaul-snz-2Ccxdjsc By: Emili Lee on 09-15-2024 SARS-CoV-2 (COVID-19) RNA RANJIT+probe Ql (Unsp spec) [facility] Vancomycin, Trough Levelon 0 09-15-2024 VANCO, TROUGH 22.8 ug/mL High 5.0-15.0 [facility] Comment on above: Order Comment: Comme nts: DRAW 30 MIN PRIOR TO [id number] Result Comment: Zackery mmended goal trough ranges [...] therapy recommended for serious lifethreatening infections include:- Jhakwicogl-Wjmzpnpowpcr-Fjrgddfjl (Ventilator/Healtcare Associated)-SepsisPLEASE CONTACT PHARMACY SERVICES (#9355) FOR INTERPRETATIONOF RESULTS. Performed By: #### L 501.8820 ####[facility] [address] [place], [address] Basic Metabolic Profile (BMP )on 09-14-2024 BUN/CRE 18.8 RATIO Normal 10-20 [facility] Comment on above: Performed By: #### L 500.2500, L100.0500 ####[facility] [address] [place], [address] Calcium [Mass/Vol] 8.3 mg/dL Normal 7.6-11.0 [facility] Comment on above: Performed By: #### L 500.2500, L100.0500 ####[facility] [address] [place], [address] Chloride [Moles/Vol] 93 mmol/L Low 98-108 [facility] Comment on above: Performed By: #### L 500.2500, L100.0500 ####[facility] [address] [place], [address] CO2 [Moles/Vol] 26.4 mmol/L Normal 21.0-32.0 [facility] Comment on above: Performed By: #### L 500.2500, L100.0500 ####[facility] [address] [place], [address] Creatinine [Mass/Vol] 1.28 mg/dL High 0.70-1.20 [facility] Comment on above: Performed By: #### L 500.2500, L100.0500 ####[facility] [address] [place], [address] ECRCL 47.43 ml/min Low 50-250 [facility] Comment on above: Performed By: #### L 500.2500, L100.0500 ####[facility] [address] [place], [address] GAP 12 Normal 5-15 [facility] Comment on above: Performed By: #### L 500.2500, L100.0500 ####[facility] [address] [place], [address] GFR/1.73 sq M.predicted among non-blacks MDRD (S/P/Bld) [Vol rate/Area] 44 mL/min/{1.73_m2} Low >60 [facility] Comment on above: Result Comment: mL/m in/1.73m2 CKD-EPI Creatinine Equation (2020) Performed By: #### L 500.2500, L100.0500 ####[facility] [address] [place], [address] Glucose [Mass/Vol] 111 mg/dL High 70-99 [facility] Comment on above: Performed By: #### L 500.2500, L100.0500 ####[facility] [address] [place], [address] Potassium [Moles/Vol] 4.0 mmol/L Normal 3.3-5.1 [facility] Comment on above: Performed By: #### L 500.2500, L100.0500 ####[facility] [address] [place], [address] Sodium [Moles/Vol] 131 mmol/L Low 133-145 [facility] Comment on above: Performed By: #### L 500.2500, L100.0500 ####[facility] [address] [place], [address] Urea nitrogen [Mass/Vol] 24 mg/dL High 4-19 [facility] Comment on above: Performed By: #### L 500.2500, L100.0500 ####[facility] [address] [place], [address] CBC-Complete Blood Cnt No Di ffon 09-14-2024 Erythrocyte distribution width (RBC) [Ratio] 14.0 % Normal 11.6-14.6 [facility] Comment on above: Performed By: #### L 500.2500, L100.0500 ####[facility] [address] [place], [address] Hematocrit (Bld) [Volume fraction] 32.5 % Low 37-47 [facility] Comment on above: Performed By: #### L 500.2500, L100.0500 ####[facility] [address] [place], [address] Hemoglobin (Bld) [Mass/Vol] 10.2 g/dL Low 12.0-15.0 [facility] Comment on above: Performed By: #### L 500.2500, L100.0500 ####[facility] [address] [place], [address] MCH (RBC) [Entitic mass] 29.6 pg Normal 27.0-32.0 [facility] Comment on above: Performed By: #### L 500.2500, L100.0500 ####[facility] [address] [place], [address] MCHC (RBC) [Mass/Vol] 31.4 g/dL Low 32-36 [facility] Comment on above: Performed By: #### L 500.2500, L100.0500 ####[facility] [address] [place], [address] MCV (RBC) [Entitic vol] 94.2 fL Normal 81-99 [facility] Comment on above: Performed By: #### L 500.2500, L100.0500 ####[facility] [address] [place], [address] Platelet mean volume (Bld) [Entitic vol] 10.1 fL Normal 6.2-12.0 [facility] Comment on above: Performed By: #### L 500.2500, L100.0500 ####[facility] [address] [place], [address] Platelets (Bld) [#/Vol] 239 10*3/uL Normal 150-450 [facility] Comment on above: Performed By: #### L 500.2500, L100.0500 ####[facility] [address] [place], [address] RBC (Bld) [#/Vol] 3.45 10*6/uL Low 4.2-5.4 [facility] Comment on above: Performed By: #### L 500.2500, L100.0500 ####[facility] [address] [place], [address] RDW SD 48.3 fl High 35.1-43.9 [facility] Comment on above: Performed By: #### L 500.2500, L100.0500 ####[facility] [address] [place], [address] WBC (Bld) [#/Vol] 11.3 10*3/uL High 4.4-11.0 [facility] Comment on above: Performed By: #### L 500.2500, L100.0500 ####[facility] [address] [place], [address] Gram Stainon 09-14-2024 GS UNK UNK Left Posterior Synovium - collected in [place] Gram Stain Very Rare Gram positive cocci Normal [facility] Comment on above: Performed By: #### M 100.2000, M600.2200, M300.2000, M100.3000, M300.3000, M600.2000, M100.4001 ####[facility] [address] [place], [address] GS UNK UNK Left Glenosphere Membrane - collected in [place] Gram Stain Very Rare Gram positive cocci 1+ White Blood Cells Normal [facility] Comment on above: Performed By: #### M 100.3000, M300.2000, M600.2200, M300.3000, M100.2000, M600.2000, M100.4001 ####[facility] [address] [place], [address] GS UNK UNK Left Humeral Membrane - collected in [place] Gram Stain 4+ Gram positive cocci in clusters Normal [facility] Comment on above: Performed By: #### M 100.4001, M600.2000, M300.2000, M300.3000, M100.2000, M100.3000, M600.2200 ####[facility] [address] [place], [address] Bacteria identified Anaer cx Nom (Unsp spec)Ordered By: Fahad Cavanaugh on 09-13-2024 Anaerobic Culture No anaerobic bacteri a isolated. [facility] Bedside Glucoseon 09-13-2024 FINGERSTICK GLU 88 mg/dL Normal 74-106 [facility] Comment on above: Result Comment: ROSA ISELA GEMENT OF PATIENT CARE PER NURSING PROTOCOL Performed By: #### L 501.080 ####[facility] [address] [place], [address] Blood cultureOrdered By: Jonathan Cavanaugh on 09-13-2024 Bacteria identified Cx Nom (Bld) No growth in 5 days. [facility] Gl[facility] at [facility] deOrdered By: Fahad Cavanaugh on 09-13-2024 Bedside Glucose (Misc Panel) 88 mg/dL 74-106 [facility] Comment on above: MANAGEMENT OF PATIEN T CARE PER NURSING PROTOCOL Gram stainOrdered By: Fahad Cavanaugh on 09-13-2024 Microscopic observation Gram stain Nom (Unsp spec) [facility] MR/POSTOP.ANEon 09-13-2024 MR/POSTOP.ANE Normal [facility] MR/RTDYWBTN6oo 09-13-2024 MR/POSTOPAN2 Normal [facility] MRSA/SAID NASAL SCREENon MRSA+SAID SCRN Reason for Exam: PRE OP MRSA MRSA Negative S. AUREUS S. aureus PositiveA Normal [facility] Comment on above: Performed By: #### M 100.651 ####[facility] [address] [place], [address] Operative Reporton Operative Report Normal [facility] Routine wound cultureOrdered By: Fahad Cavanaugh on 09-13-2024 Wound Culture Staphylococcus aureus Abnormal [facility] Shoulder min 2 Viewson 09-13 Shoulder min 2 Views Normal [facility] CBC-Complete Blood Cnt No Di ffon 09-12-2024 Erythrocyte distribution width (RBC) [Ratio] 13.7 % Normal 11.6-14.6 [facility] Comment on above: Performed By: #### L 501.5200, L100.0500 ####[facility] [address] [place], [address] Hematocrit (Bld) [Volume fraction] 37.2 % Normal 37-47 [facility] Comment on above: Performed By: #### L 501.5200, L100.0500 ####[facility] [address] [place], [address] Hemoglobin (Bld) [Mass/Vol] 12.2 g/dL Normal 12.0-15.0 [facility] Comment on above: Performed By: #### L 501.5200, L100.0500 ####[facility] [address] [place], [address] MCH (RBC) [Entitic mass] 30.0 pg Normal 27.0-32.0 [facility] Comment on above: Performed By: #### L 501.5200, L100.0500 ####[facility] [address] [place], [address] MCHC (RBC) [Mass/Vol] 32.8 g/dL Normal 32-36 [facility] Comment on above: Performed By: #### L 501.5200, L100.0500 ####[facility] [address] [place], [address] MCV (RBC) [Entitic vol] 91.6 fL Normal 81-99 [facility] Comment on above: Performed By: #### L 501.5200, L100.0500 ####[facility] [address] [place], [address] Platelet mean volume (Bld) [Entitic vol] 10.1 fL Normal 6.2-12.0 [facility] Comment on above: Performed By: #### L 501.5200, L100.0500 ####[facility] [address] [place], [address] Platelets (Bld) [#/Vol] 230 10*3/uL Normal 150-450 [facility] Comment on above: Performed By: #### L 501.5200, L100.0500 ####[facility] [address] [place], [address] RBC (Bld) [#/Vol] 4.06 10*6/uL Low 4.2-5.4 [facility] Comment on above: Performed By: #### L 501.5200, L100.0500 ####[facility] [address] [place], [address] RDW SD 47.1 fl High 35.1-43.9 [facility] Comment on above: Performed By: #### L 501.5200, L100.0500 ####[facility] [address] [place], [address] WBC (Bld) [#/Vol] 10.0 10*3/uL Normal 4.4-11.0 [facility] Comment on above: Performed By: #### L 501.5200, L100.0500 ####[facility] [address] [place], [address] Gram Stainon 09-12-2024 GS Results called on 09/12/24-1023 by FOREST to [phone]. UNK UNK Test not performed Normal [facility] Comment on above: Performed By: #### M 100.4001, M100.2900, M100.2000, M300.3000, L200.0400, M600.2000, M300.2000 ####[facility] [address] [place], [address] MR/PAT.ANEon 09-12-2024 MR/PAT.ANE Normal [facility] MR/PAT.ANE Normal [facility] MRSA screenOrdered By: Mike Cavanaugh on 09-12-2024 Nasal Screen MRSA/MSSA [facility] Magnesiumon 09-12-2024 Magnesium [Mass/Vol] 1.7 mg/dL Normal 1.5-2.2 [facility] Comment on above: Performed By: #### L 501.5200, L100.0500 ####[facility] [address] [place], [address] Magnesium (Unsp spec) [Mass/ Vol]Ordered By: Omar Walters on 09-12-2024 Magnesium [Mass/Vol] 1.7 mg/dL 1.5-2.2 [facility] Appearance (Syn fld)Ordered By: Fahad Cavanaugh on 09-11-2024 Synovial Fluid Appearance Cloudy CLEAR [facility] Bacteria identified Anaer cx Nom (Unsp spec)Ordered By: Fahad Cavanaugh on 09-11-2024 Anaerobic Culture No anaerobic bacteri a isolated. [facility] Basic Metabolic Profile (BMP )on 09-11-2024 BUN/CRE 28.5 RATIO High 10-20 [facility] Comment on above: Performed By: #### L 500.2500 ####[facility] [address] [place], [address] Calcium [Mass/Vol] 9.5 mg/dL Normal 7.6-11.0 [facility] Comment on above: Performed By: #### L 500.2500 ####[facility] [address] [place], [address] Chloride [Moles/Vol] 96 mmol/L Low 98-108 [facility] Comment on above: Performed By: #### L 500.2500 ####[facility] [address] [place], [address] CO2 [Moles/Vol] 31.1 mmol/L Normal 21.0-32.0 [facility] Comment on above: Performed By: #### L 500.2500 ####[facility] [address] [place], [address] Creatinine [Mass/Vol] 1.01 mg/dL Normal 0.70-1.20 [facility] Comment on above: Performed By: #### L 500.2500 ####[facility] [address] [place], [address] GAP 11 Normal 5-15 [facility] Comment on above: Performed By: #### L 500.2500 ####[facility] [address] [place], [address] GFR/1.73 sq M.predicted among non-blacks MDRD (S/P/Bld) [Vol rate/Area] 58 mL/min/{1.73_m2} Low >60 [facility] Comment on above: Result Comment: mL/m in/1.73m2 CKD-EPI Creatinine Equation (2020) Performed By: #### L 500.2500 ####[facility] [address] [place], [address] Glucose [Mass/Vol] 105 mg/dL High 70-99 [facility] Comment on above: Performed By: #### L 500.2500 ####[facility] [address] [place], [address] Potassium [Moles/Vol] 3.3 mmol/L Normal 3.3-5.1 [facility] Comment on above: Performed By: #### L 500.2500 ####[facility] [address] [place], [address] Sodium [Moles/Vol] 137 mmol/L Normal 133-145 [facility] Comment on above: Performed By: #### L 500.2500 ####[facility] [address] [place], [address] Urea nitrogen [Mass/Vol] 29 mg/dL High 4-19 [facility] Comment on above: Performed By: #### L 500.2500 ####[facility] [address] [place], [address] Body fluid cultureOrdered By : Fahad Cavanaugh on 09-11-2024 Body Fluid Culture Meth. resistant Stap h. aureus Abnormal [facility] Cells Counted Total (Syn fld ) [#]Ordered By: Fahad Cavanaugh on 09-11-2024 Synovial Fluid Total Cells Counted 43.9600 10^3/uL High 0.000-0.000 [facility] Comment on above: This is the Total Nu mber of Nucleated Cell Types in the Body Fluid. Color (Syn fld)Ordered By: Celine Cavanaugh on 09-11-2024 Synovial Fluid Color Yellow Pale Yellow [facility] Gram stainOrdered By: Fahad Cavanaugh on 09-11-2024 Microscopic observation Gram stain Nom (Unsp spec) [facility] Lymphocytes/100 WBC (Bld)Ord ered By: Fahad Cavanaugh on 09-11-2024 Synovial Fluid Lymphocytes 4 % [facility] Monocytes/100 WBC (Syn fld)O rdered By: Fahad Cavanaugh on 09-11-2024 Synovial Fluid Monocytes 2 % [facility] Mononuclear cells Auto (Syn fld) [#/Vol]Ordered By: Fahad Cavanaugh on 09-11-2024 Synovial Fluid Mononuclear WBCs 3.460 10^3/ul [facility] Mononuclear cells/100 WBC (S yn fld)Ordered By: Fahad Cavanaugh on 09-11-2024 Synovial Fluid Mononuclear WBCs % 9.0 % [facility] Neutrophils/100 WBC (Syn fld )Ordered By: Fahad Cavanaugh on 09-11-2024 Synovial Fluid Neutrophils 94 % High 0-25 [facility] Pathologist review Fahad (Unsp spec) [Interp]Ordered By: Fahad Cavanaugh on 09-11-2024 Synovial Fluid Pathologist Comment May follow [facility] Polymorphonuclear cells Auto (Syn fld) [#/Vol]Ordered By: Fahad Cavanaugh on 09-11-2024 Synovial Fluid Polynuclear WBCs 34.879 10^3/uL [facility] Polymorphonuclear cells/100 WBC Auto (Syn fld)Ordered By: Fahad Cavanaugh on 09-11-2024 Synovial Fluid Polynuclear WBCs % 91.0 % [facility] RBC (Syn fld) [#/Vol]Ordered By: Fahad Cavanaugh on 09-11-2024 Synovial Fluid RBC 0.015 10^6/uL High 0-0 [facility] Specimen source Nom (Body fl d)Ordered By: Fahad Cavanaugh on 09-11-2024 Synovial Fluid Source SHOULDER [facility] Viscosity Ql (Syn fld)Ordere d By: Fahad Cavanaugh on 09-11-2024 Synovial Fluid Viscosity Viscous HIGH [facility] WBC Auto (Syn fld) [#/Vol]Or dered By: Fahad Cavanaugh on 09-11-2024 Synovial Fluid WBC 43.6850 10^3/uL High 0.000-0.002 [facility] C-REACTIVE PROTEINon 025 CRP 13.29 mg/dl High 0.00 - 0.90 [facility] Comment on above: Performed By: #### 2 [id number] #### [facility],[address] [place] [address] CBC + DIFFon 09-10-2024 Baso # 0.03 x10EE3/UL Normal 0.00 - 0.10 [facility] Comment on above: Performed By: #### 2 [id number] #### [facility],[address] [place] [address] Basophils/100 WBC (Bld) 0.3 % Normal 0.0 - 2.0 [facility] Comment on above: Performed By: #### 2 51431 #### [facility],[address] [place] [address] CBC + DIFF Normal [facility] Comment on above: Result Comment: CBC- COMPLETE BLOOD COUNT Performed By: #### 2 [id number] #### [facility],[address] [place] [address] EO # 0.22 x10EE3/UL Normal 0.00 - 0.50 [facility] Comment on above: Performed By: #### 2 12020 #### [facility],[address] [place] [address] Eosinophils/100 WBC (Bld) 2.2 % Normal 0.0 - 7.0 [facility] Comment on above: Performed By: #### 2 99303 #### [facility],[address] [place] [address] Erythrocyte distribution width (RBC) [Ratio] 13.4 % Normal 12.0 - 15.6 [facility] Comment on above: Performed By: #### 2 [id number] #### [facility],[address] [place], [place] [address] Hematocrit (Bld) [Volume fraction] 39.5 % Normal 34.0 - 46.0 [facility] Comment on above: Performed By: #### 2 76130 #### [facility],[address] [place] [address] Hemoglobin (Bld) [Mass/Vol] 13.6 g/dL Normal 12.0 - 16.0 [facility] Comment on above: Performed By: #### 2 47133 #### [facility],[address] [place] [address] Lymph # 1.07 x10EE3/UL Normal 0.80 - 2.80 [facility] Comment on above: Performed By: #### 2 26412 #### [facility],[address] [place] [address] Lymphocytes/100 WBC (Bld) 10.6 % Low 20.0 - 45.0 [facility] Comment on above: Performed By: #### 2 88077 #### [facility],[address] [place] [address] MANUAL DIFF N/A Normal [facility] Comment on above: Performed By: #### 2 19511 #### [facility],[address] [place] [address] MCH (RBC) [Entitic mass] 31 pg Normal 27 - 33 [facility] Comment on above: Performed By: #### 2 51133 #### [facility],[address] [place] [address] MCHC 35 X10 3 Normal 32 - 36 [facility] Comment on above: Performed By: #### 2 37973 #### [facility],[address] [place] [address] MCV (RBC) [Entitic vol] 90 fL Normal 80 - 99 [facility] Comment on above: Performed By: #### 2 17341 #### [facility],[address] [place] [address] Inyo # 1.00 x10EE3/UL Normal 0.20 - 1.00 [facility] Comment on above: Performed By: #### 2 00903 #### [facility],[address] [place] [address] MONOS % 9.9 % Normal 0.0 - 10.0 [facility] Comment on above: Performed By: #### 2 00032 #### [facility],[address] [place] [address] Morphology Fahad (Bld) [Interp] N/A Normal [facility] Comment on above: Performed By: #### 2 24407 #### [facility],[address] [place] [address] Neut # 7.73 x10EE3/UL High 1.50 - 7.10 [facility] Comment on above: Performed By: #### 2 45269 #### [facility],[address] [place] [address] Neutrophils/100 WBC (Bld) 77.0 % High 46.0 - 76.0 [facility] Comment on above: Performed By: #### 2 61930 #### [facility],[address] [place] [address] PLATELET 233 x10EE3/UL Normal 150 - 450 [facility] Comment on above: Performed By: #### 2 26525 #### [facility],[address] [place] [address] Platelet mean volume (Bld) [Entitic vol] 8.5 fL Normal 6.6 - 10.5 [facility] Comment on above: Result Comment: AUTO MATED DIFFERENTIAL Performed By: #### 2 23596 #### [facility],[address] [place] [address] 690[address] RBC 4.39 x 10EE6/UL Normal 4.10 - 5.30 [facility] Comment on above: Performed By: #### 2 62388 #### [facility],[address] [place] [address]92 WBC 10.0 x 10EE3/UL Normal 4.5 - 10.8 [facility] Comment on above: Performed By: #### 2 60457 #### [facility],[address] [place] [address]65 SEDRATEon 09-10-2024 SEDRATE 83 mm/hr High 0 - 30 [facility] Comment on above: Performed By: #### 2 92238 #### [facility],[address] [place] [address] Absolute lymphocyte countOrd ered By: Kamar Grimes on 10-19-2023 Lymphocytes Auto (Unsp spec) [#/Vol] 1.54 10*3/uL 0.83-4.51 [facility] Automated lymphocyte count a s percentage of total leukocytesOrdered By: Kamar Grimes on 10-19-2023 Lymphocytes/100 WBC Auto (Unsp spec) 25.0 % 19-41 [facility] Basophil percentageOrdered B y: Kamar Grimes on 10-19-2023 Basophils/100 WBC (Bld) 0.6 % 0-1 [facility] Bilirubin [Mass/Vol] 0.40 mg/dL 0.20-1.00 [facility] Comment on above: For patients on eltr ombopag therapy, use of Dimension Wallace TBIL is not recommended. Chloride [Moles/Vol] 103 mmol/L 98-107 [facility] Eosinophils/100 WBC (Bld) 2.8 % 0-5 [facility] Glucose [Mass/Vol] 105 mg/dL 74-106 [facility] Comment on above: Fasting Glucose resu lt from 100 to 125 mg/dL suggests IMPAIRED HOMEOSTASIS per A.D.A. criteria. Hemoglobin (Bld) [Mass/Vol] 14.4 g/dL 12.0-15.0 [facility] Monocytes/100 WBC (Bld) 8.1 % 0-10 [facility] Neutrophils (Bld) [#/Vol] 3.9 10*3/uL 2.0-7.7 [facility] Neutrophils/100 WBC (Bld) 63.0 % 47-70 [facility] Potassium [Moles/Vol] 4.8 mmol/L 3.5-5.1 [facility] Protein [Mass/Vol] 7.5 g/dL 6.4-8.2 [facility] Sodium [Moles/Vol] 139 mmol/L 136-145 [facility] WBC (Bld) [#/Vol] 6.2 10*3/uL 4.4-11.0 [facility] Determination of erythrocyte mean corpuscular volume (MCV)Ordered By: Kamar Grimes on 10-19-2023 MCV (RBC) [Entitic vol] 94.8 fL 81-99 [facility] Erythrocyte distribution wid th ratioOrdered By: Kamar Grimes on 10-19-2023 Erythrocyte distribution width (RBC) [Ratio] 13.9 % 11.6-14.6 [facility] Erythrocyte distribution wid th standard deviationOrdered By: Kamar Grimes on 10-19-2023 Erythrocyte distribution width (RBC) [Entitic vol] 49.0 fL 35.1-43.9 [facility] Hematocrit Auto (Bld) [Volum e fraction]Ordered By: Kamar Grimes on 10-19-2023 Hematocrit (Bld) [Volume fraction] 46.0 % 37-47 [facility] Immature granulocytes/100 WB C Auto (Bld)Ordered By: Kamar Grimes on 10-19-2023 Immature granulocytes/100 WBC (Bld) 0.500 % 0.0-0.9 [facility] Comment on above: IG% - Immature Granu locytes (promyelocytes, myelocytes and metamyelocytes) > 1% indicates that a LEFT SHIFT is Present. Laboratory - Chemistry and C hemistry - challengeOrdered By: Kamar Grimes on 10-19-2023 Albumin/Globulin [Mass ratio] 1.0 {ratio} 0.9-2.4 [facility] ALP [Catalytic activity/Vol] 121 U/L 45-117 [facility] ALT [Catalytic activity/Vol] 28 U/L 13-56 [facility] CO2 [Moles/Vol] 32.0 mmol/L 21.0-32.0 [facility] Ferritin [Mass/Vol] 72 ng/mL 8-252 [facility] Globulin (S) [Mass/Vol] 3.8 g/dL 2.2-4.2 [facility] Magnesium [Mass/Vol] 2.0 mg/dL 1.6-2.6 [facility] Urea nitrogen/Creatinine [Mass ratio] 28.6 mg/mg 10-20 [facility] Laboratory - Hematology and Cell countsOrdered By: Kamar Grimes on 10-19-2023 MCH (RBC) [Entitic mass] 29.7 pg 27.0-32.0 [facility] MCHC (RBC) [Mass/Vol] 31.3 g/dL 32-36 [facility] Nucleated RBC/100 WBC (Bld) [Ratio] 0 % 0-5 [facility] Platelet mean volume (Bld) [Entitic vol] 11.8 fL 6.2-12.0 [facility] Platelets (Bld) [#/Vol] 192 10*3/uL 150-450 [facility] No Panel InformationOrdered By: Kamar Grimes on 10-19-2023 Estimated GFR (MDRD) Amer 61 mL/min >60 [facility] Comment on above: GFR Calc Estimated GFR (MDRD) Non-Af Amer 50 mL/min >60 [facility] Comment on above: Non- GFR Calc Urine Microalbumin/Creatinine Ratio 180.8 mg/g CRE <30 [facility] RBC Auto (Bld) [#/Vol]Ordere d By: Kamar Grimes on 10-19-2023 RBC (Bld) [#/Vol] 4.85 10*6/uL 4.2-5.4 [facility] Serum or plasma calcium lisa urement (mass/volume)Ordered By: Kamar Grimes on 10-19-2023 Calcium [Mass/Vol] 9.8 mg/dL 8.5-10.1 [facility] Serum or plasma creatinine m easurement (mass/volume)Ordered By: Kamar Grimes on 10-19-2023 Creatinine [Mass/Vol] 1.12 mg/dL 0.55-1.02 [facility] Comment on above: The validity of the calculated GFR & GFRAA in patients over 70 years has not been determined. Clinical correlation is essential. Serum or plasma thyroid stim ulating hormone (TSH) measurement (units/volume)Ordered By: Kamar Grimes on 10-19-2023 TSH Qn 1.61 uIU/mL 0.358-3.74 [facility] Serum or plasma urea nitroge n measurement (mass/volume)Ordered By: Kamar Grimes on 10-19-2023 Urea nitrogen [Mass/Vol] 32 mg/dL 7-18 [facility] Thin prep Papanicolaou smear with manual screeningOrdered By: Kamar Grimes on 10-19-2023 Thin prep Papanicolaou smear with manual screening 3.7 g/dL 3.2-5.0 [facility] Thin prep Papanicolaou smear with manual screening 25 U/L 15-37 [facility] Thin prep Papanicolaou smear with manual screening 4 5-15 [facility] Thin prep Papanicolaou smear with manual screening 79.0 mg/L NO RANGE EST. [facility] Urine creatinine measurement (mass/volume)Ordered By: Kamar Grimes on 10-19-2023 Creatinine (U) [Mass/Vol] 43.70 mg/dL NO RANGE EST. [facility] Absolute lymphocyte countOrd ered By: Dr. Grimes on 10-18-2022 Lymphocytes Auto (Unsp spec) [#/Vol] 1.84 10*3/uL 0.83-4.51 [facility] Basophil percentageOrdered B y: Dr. Grimes on 10-18-2022 Basophils/100 WBC (Bld) 0.9 % 0-1 [facility] Bilirubin [Mass/Vol] 0.50 mg/dL 0.20-1.00 [facility] Comment on above: For patients on eltr ombopag therapy, use of Dimension Wallace TBIL is not recommended. Chloride [Moles/Vol] 106 mmol/L 98-107 [facility] Cholesterol [Mass/Vol] 315 mg/dL <200 [facility] Comment on above: <200 mg/dL Desirable 200-240 mg/dL Borderline >240 mg/dL High Risk Eosinophils/100 WBC (Bld) 3.2 % 0-5 [facility] Glucose [Mass/Vol] 94 mg/dL 74-106 [facility] Neutrophils (Bld) [#/Vol] 4.3 10*3/uL 2.0-7.7 [facility] Neutrophils/100 WBC (Bld) 61.3 % 47-70 [facility] Potassium [Moles/Vol] 4.5 mmol/L 3.5-5.1 [facility] Protein [Mass/Vol] 7.1 g/dL 6.4-8.2 [facility] Sodium [Moles/Vol] 137 mmol/L 136-145 [facility] Triglyceride [Mass/Vol] 246 mg/dL <199 [facility] Comment on above: The drugs N-Acetylcy steine and Metamizole may falsely depress this assay.Serum Triglycerides Reference Interval Normal <150 mg/dL Borderline high 150 - 199 mg/dL High 200 - 499 mg/dL Very High > or = 500 mg/dL WBC (Bld) [#/Vol] 6.9 10*3/uL 4.4-11.0 [facility] Blood erythrocytes count (nu mber/volume)Ordered By: Dr. Grimes on 10-18-2022 RBC (Bld) [#/Vol] 4.89 10*6/uL 4.2-5.4 [facility] Blood hemoglobin measurement (mass/volume)Ordered By: Dr. Grimes on 10-18-2022 Hemoglobin (Bld) [Mass/Vol] 14.1 g/dL 12.0-15.0 [facility] Blood lymphocytes/100 leukoc ytesOrdered By: Dr. Grimes on 10-18-2022 Lymphocytes/100 WBC (Bld) 26.6 % 19-41 [facility] Blood monocytes/100 leukocyt esOrdered By: Dr. Grimes on 10-18-2022 Monocytes/100 WBC (Bld) 7.4 % 0-10 [facility] Blood platelet mean volumeOr dered By: Dr. Grimes on 10-18-2022 Platelet mean volume (Bld) [Entitic vol] 10.9 fL 6.2-12.0 [facility] Determination of erythrocyte mean corpuscular volume (MCV)Ordered By: Dr. Grimes on 10-18-2022 MCV (RBC) [Entitic vol] 92.6 fL 81-99 [facility] Hematocrit Auto (Bld) [Volum e fraction]Ordered By: Dr. Grimes on 10-18-2022 Hematocrit (Bld) [Volume fraction] 45.3 % 37-47 [facility] Laboratory - Chemistry and C hemistry - challengeOrdered By: Dr. Grimes on 10-18-2022 ALP [Catalytic activity/Vol] 113 U/L 45-117 [facility] ALT [Catalytic activity/Vol] 34 U/L 13-56 [facility] CO2 [Moles/Vol] 27.0 mmol/L 21.0-32.0 [facility] Globulin (S) [Mass/Vol] 3.6 g/dL 2.2-4.2 [facility] Urea nitrogen/Creatinine [Mass ratio] 24.5 mg/mg 10-20 [facility] Laboratory - Hematology and Cell countsOrdered By: Dr. Grimes on 10-18-2022 Erythrocyte distribution width (RBC) [Entitic vol] 45.0 fL 35.1-43.9 [facility] Erythrocyte distribution width (RBC) [Ratio] 13.4 % 11.6-14.6 [facility] Immature granulocytes/100 WBC (Bld) 0.600 % 0.0-0.9 [facility] Comment on above: IG% - Immature Granu locytes (promyelocytes, myelocytes and metamyelocytes) > 1% indicates that a LEFT SHIFT is Present. MCH (RBC) [Entitic mass] 28.8 pg 27.0-32.0 [facility] Nucleated RBC/100 WBC (Bld) [Ratio] 0 % 0-5 [facility] MCHC Auto (RBC) [Mass/Vol]Or dered By: Dr. Grimes on 10-18-2022 MCHC (RBC) [Mass/Vol] 31.1 g/dL 32-36 [facility] No Panel InformationOrdered By: Dr. Grimes on 10-18-2022 Estimated GFR (MDRD) Amer 79 mL/min >60 [facility] Comment on above: GFR Calc Estimated GFR (MDRD) Non-Af Amer 65 mL/min >60 [facility] Comment on above: Non- GFR Calc Urine Microalbumin/Creatinine Ratio 266.0 mg/g CRE <30 [facility] Vitamin D 25-Hydroxy 27.3 ng/mL [facility] Comment on above: Vitamin D 25(OH) Sta tus Range Deficiency <20 ng/mL (50nmol/L) Insufficiency 20 - 30 ng/mL (50 - 75 nmol/L) Sufficiency 30 - 100 ng/mL (75 - 250 nmol/L) Toxicity >100 ng/mL (>250 nmol/L) Platelets bldOrdered By: Dr. Grimes on 10-18-2022 Platelets (Bld) [#/Vol] 196 10*3/uL 150-450 [facility] Serum or plasma albumin lisa urement (mass/volume)Ordered By: Dr. Grimes on 10-18-2022 Albumin [Mass/Vol] 3.5 g/dL 3.2-5.0 [facility] Serum or plasma albumin/glob ulin mass ratioOrdered By: Dr. Grimes on 10-18-2022 Albumin/Globulin [Mass ratio] 1.0 {ratio} 0.9-2.4 [facility] Serum or plasma calcium lisa urement (mass/volume)Ordered By: Dr. Grimes on 10-18-2022 Calcium [Mass/Vol] 9.2 mg/dL 8.5-10.1 [facility] Serum or plasma cholesterol in HDL measurement (mass/volume)Ordered By: Dr. Grimes on 10-18-2022 Cholesterol in HDL [Mass/Vol] 56 mg/dL >40 [facility] Comment on above: The drugs N-Acetylcy steine and Metamizole may falsely depress this assay. Reference Range HDL <40 mg/dL Low HDL Cholesterol HDL >or= 60 mg/dL High HDL Cholesterol Serum or plasma cholesterol in VLDL measurement (mass/volume)Ordered By: Dr. Grimes on 10-18-2022 Cholesterol in VLDL [Mass/Vol] 49 mg/dL 5-40 [facility] Serum or plasma creatinine m easurement (mass/volume)Ordered By: Dr. Grimes on 10-18-2022 Creatinine [Mass/Vol] 0.90 mg/dL 0.55-1.02 [facility] Comment on above: The validity of the calculated GFR & GFRAA in patients over 70 years has not been determined. Clinical correlation is essential. Serum or plasma ferritin bubba surement (mass/volume)Ordered By: Dr. Grimes on 10-18-2022 Ferritin [Mass/Vol] 65 ng/mL 8-252 [facility] Serum or plasma low density lipoprotein (LDL) cholesterol measurement (mass/volume)Ordered By: Dr. Grimes on 10-18-2022 Cholesterol in LDL [Mass/Vol] 210 mg/dL 0-130 [facility] Serum or plasma urea nitroge n measurement (mass/volume)Ordered By: Dr. Grimes on 10-18-2022 Urea nitrogen [Mass/Vol] 22 mg/dL 7-18 [facility] Thin prep Papanicolaou smear with manual screeningOrdered By: Dr. Grimes on 10-18-2022 Thin prep Papanicolaou smear with manual screening 25 U/L 15-37 [facility] Thin prep Papanicolaou smear with manual screening 4 5-15 [facility] Thin prep Papanicolaou smear with manual screening 104.0 mg/L NO RANGE EST. [facility] Urine creatinine measurement (mass/volume)Ordered By: Dr. Grimes on 10-18-2022 Creatinine (U) [Mass/Vol] 39.10 mg/dL NO RANGE EST. [facility] Whole blood hemoglobin A1c/t otal hemoglobin ratio (mass fraction)Ordered By: Dr. Grimes on 10-18-2022 HbA1c (Bld) [Mass fraction] 5.6 % 3.8-5.6 [facility] Comment on above: Normal < 5.7 % Predi abetic 5.7 - 6.4 % Diabetic >or= 6.5 % Please note range changes. No Panel Informationon 04-20 Stool Pancreatic Elastase > 500 >200 [facility] Work Phone: Comment on above: Result Units: ug Estephania st./g Severe Pancreatic Insufficiency: <100 Moderate Pancreatic Insufficiency: 100 - 200 Normal: >200Performed at: [facility] - [facility] [address] [id number] Director: Javier Christie MD, Phone: [phone] Basophil percentageon 2021 Bilirubin [Mass/Vol] 0.70 mg/dL 0.20-1.00 [facility] Work Phone: Comment on above: For patients on eltr ombopag therapy, use of Dimension Wallace TBIL is not recommended. Chloride [Moles/Vol] 100 mmol/L 98-107 [facility] Work Phone: Cholesterol [Mass/Vol] 286 mg/dL <200 [facility] Work Phone: Comment on above: <200 mg/dL Desirable 200-240 mg/dL Borderline >240 mg/dL High Risk Glucose [Mass/Vol] 101 mg/dL 74-106 [facility] Work Phone: Comment on above: Fasting Glucose resu lt from 100 to 125 mg/dL suggests IMPAIRED HOMEOSTASIS per A.D.A. criteria. Potassium [Moles/Vol] 3.5 mmol/L 3.5-5.1 [facility] Work Phone: Protein [Mass/Vol] 7.5 g/dL 6.4-8.2 [facility] Work Phone: Sodium [Moles/Vol] 137 mmol/L 136-145 [facility] Work Phone: Triglyceride [Mass/Vol] 202 mg/dL <199 [facility] Work Phone: Comment on above: The drugs N-Acetylcy steine and Metamizole may falsely depress this assay.Serum Triglycerides Reference Interval Normal <150 mg/dL Borderline high 150 - 199 mg/dL High 200 - 499 mg/dL Very High > or = 500 mg/dL Laboratory - Chemistry and C hemistry - challengeon 04-19-2022 Albumin [Mass/Vol] 4.0 g/dL 2.9-4.4 [facility] Work Phone: ALP [Catalytic activity/Vol] 107 U/L 45-117 [facility] Work Phone: ALT [Catalytic activity/Vol] 35 U/L 13-56 [facility] Work Phone: CO2 [Moles/Vol] 31.0 mmol/L 21.0-32.0 [facility] Work Phone: Cobalamin (Vitamin B12) [Mass/Vol] 405 pg/mL 211-911 [facility] Work Phone: Globulin (S) [Mass/Vol] 3.6 g/dL 2.2-4.2 [facility] Work Phone: Urea nitrogen/Creatinine [Mass ratio] 16.6 mg/mg 10-20 [facility] Work Phone: No Panel Informationon 04-19 Addendum Document Comment . [facility] Work Phone: Comment on above: The SPE pattern appe ars unremarkable. Evidence ofmonoclonal protein is not apparent.Performed at: [address] [id number] Director: Jorden Figueroa PhD, Phone: [phone] Crbjf-4-Vfqshavji 0.3 g/dL 0.0-0.4 [facility] Work Phone: Baeei-2-Naicpsppz 0.8 g/dL 0.4-1.0 [facility] Work Phone: Anti-Nuclear Antibody Screen Negative Negative [facility] Work Phone: Comment on above: Performed at: - [employer] [address] [id number] Director: Jorden Figueroa PhD, Phone: [phone] Estimated GFR (MDRD) Amer 73 mL/min >60 [facility] Work Phone: Comment on above: GFR Calc Estimated GFR (MDRD) Non-Af Amer 60 mL/min >60 [facility] Work Phone: Comment on above: Non- GFR Calc Gamma Globulins 1.0 g/dL 0.4-1.8 [facility] Work Phone: Urine Microalbumin/Creatinine Ratio 94.8 mg/g CRE <30 [facility] Work Phone: Protein Fractions Elph [Inte rp]on 04-19-2022 Protein Fractions [Interp] Comment . [facility] Work Phone: Comment on above: Protein electrophore sis scan will follow via computer,mail, or brazer helper induction delivery. Serum albumin to globulin ra bernard by protein electrophoresison 04-19-2022 Albumin/Globulin Elph [Mass ratio] 1.2 0.7-1.7 [facility] Work Phone: Serum globulin measurement ( mass/volume)on 04-19-2022 Globulin (S) [Mass/Vol] 3.3 g/dL 2.2-3.9 [facility] Work Phone: Serum or plasma albumin lisa urement (mass/volume)on 04-19-2022 Albumin [Mass/Vol] 3.9 g/dL 3.2-5.0 [facility] Work Phone: Serum or plasma albumin/glob ulin mass ratioon 04-19-2022 Albumin/Globulin [Mass ratio] 1.1 {ratio} 0.9-2.4 [facility] Work Phone: Serum or plasma beta globuli n measurement by electrophoresis (mass/volume)on 04-19-2022 Beta globulin Elph [Mass/Vol] 1.2 g/dL 0.7-1.3 [facility] Work Phone: Serum or plasma calcium lisa urement (mass/volume)on 04-19-2022 Calcium [Mass/Vol] 9.7 mg/dL 8.5-10.1 [facility] Work Phone: Serum or plasma cholesterol in HDL measurement (mass/volume)on 04-19-2022 Cholesterol in HDL [Mass/Vol] 59 mg/dL >40 [facility] Work Phone: Comment on above: The drugs N-Acetylcy steine and Metamizole may falsely depress this assay. Reference Range HDL <40 mg/dL Low HDL Cholesterol HDL >or= 60 mg/dL High HDL Cholesterol Serum or plasma cholesterol in VLDL measurement (mass/volume)on 04-19-2022 Cholesterol in VLDL [Mass/Vol] 40 mg/dL 5-40 [facility] Work Phone: Serum or plasma creatinine m easurement (mass/volume)on 04-19-2022 Creatinine [Mass/Vol] 0.96 mg/dL 0.55-1.02 [facility] Work Phone: Comment on above: The validity of the calculated GFR & GFRAA in patients over 70 years has not been determined. Clinical correlation is essential. Serum or plasma folate measu rement (mass/volume)on 04-19-2022 Folate [Mass/Vol] 33.60 ng/mL 3.1-55.4 [facility] Work Phone: Serum or plasma low density lipoprotein (LDL) cholesterol measurement (mass/volume)on 04-19-2022 Cholesterol in LDL [Mass/Vol] 187 mg/dL 0-130 [facility] Work Phone: Serum or plasma urea nitroge n measurement (mass/volume)on 04-19-2022 Urea nitrogen [Mass/Vol] 16 mg/dL 7-18 [facility] Work Phone: Thin prep Papanicolaou smear with manual screeningon 04-19-2022 Thin prep Papanicolaou smear with manual screening 26 U/L 15-37 [facility] Work Phone: Thin prep Papanicolaou smear with manual screening 6 5-15 [facility] Work Phone: Thin prep Papanicolaou smear with manual screening 58.4 mg/L NO RANGE EST. [facility] Work Phone: Thin prep Papanicolaou smear with manual screening See comment [facility] Work Phone: Comment on above: Result: Not Observed Total protein bloodon 2021 Protein [Mass/Vol] 7.3 g/dL 6.0-8.5 [facility] Work Phone: Urine creatinine measurement (mass/volume)on 04-19-2022 Creatinine (U) [Mass/Vol] 61.60 mg/dL NO RANGE EST. [facility] Work Phone: Otheron 12-22-2006 CONVERTED ELECTRONIC SIGNATURE FERNANDO MARLEY M.D., PATHOLOGIST (Electronic signature on file) Final Signed Out: 12/22/2006 17:10 [facility] CONVERTED FINAL DIAGNOSIS RIGHT HUMERAL HEAD, EXCISION - DEGENERATIVE ARTHRITIS. [facility] CONVERTED ORDERING PROVIDER Ordering Provider: SIXTO NELSON [facility] Vital Signs Date Time Vital Sign Value Performing Clinician Facility 04-23-2025 16:45-0400 Body temperature 98.3 [degF] Dr. Kamar Grimes MD Work Phone: [facility] 04-23-2025 16:45-0400 Diastolic blood pressure 80 mm[Hg] Dr. Kamar Grimes MD Work Phone: [facility] 04-23-2025 16:45-0400 Heart rate 96 /min Dr. Kamar Grimes MD Work Phone: [facility] 04-23-2025 16:45-0400 Inhaled oxygen flow rate 3 L/min Dr. Kamar Grimes MD Work Phone: [facility] 04-23-2025 16:45-0400 Respiratory rate 18 /min Dr. Kamar Grimes MD Work Phone: 7(436)860-082719 [place] [address] 04-23-2025 16:45-0400 SaO2% (BldA) [Mass fraction] 98 % Dr. Kamar Grimes MD Work Phone: 1(866)768-902319 [place] [address] 04-23-2025 16:45-0400 Systolic blood pressure 132 mm[Hg] Dr. Kamar Grimes MD Work Phone: 5(654)554-544419 [place] [address] 04-23-2025 03:23-0400 Body mass index (BMI) [Ratio] 36.9 kg/m2 Dr. Kamar Grimes MD Work Phone: 3(659)575-375119 [place] [address] 04-23-2025 03:23-0400 Body weight 107.[address] Kamar Grimes MD Work Phone: 4(671)650-179219 [place] [address] 04-22-2025 15:38-0400 Body height 170.[address] Kamar Grimes MD Work Phone: 3(534)875-679319 [place] [address] 04-16-2025 16:49-0400 Inhaled oxygen flow rate 2 L/min Dr. Kamar Grimes MD Work Phone: 6(933)643-371319 [place] [address] 04-16-2025 16:49-0400 SaO2% (BldA) [Mass fraction] 94 % Dr. Kamar Grimes MD Work Phone: 6(678)206-235119 [place] [address] 04-16-2025 16:00-0400 Heart rate 86 /min Dr. Kamar Grimes MD Work Phone: 0(099)239-011019 [place] [address] 04-16-2025 16:00-0400 Respiratory rate 20 /min Dr. Kamar Grimes MD Work Phone: 7(840)014-533919 [place] [address] 04-16-2025 15:27-0400 Body mass index (BMI) [Ratio] 36 kg/m2 Dr. Kamar Grimes MD Work Phone: 0(270)919-714819 [place] [address] 04-16-2025 15:27-0400 Body weight 104.[address] Kamar Grimes MD Work Phone: 0(262)523-660119 [place] [address] 04-16-2025 15:27-0400 Diastolic blood pressure 71 mm[Hg] Dr. Kamar Grimes MD Work Phone: 8(961)348-056931 [place] [address] 04-16-2025 15:27-0400 Systolic blood pressure 105 mm[Hg] Dr. Kamar Grimes MD Work Phone: 7(994)848-334319 [place] [address] 03-26-2025 14:00-0400 Diastolic blood pressure 105 mm[Hg] Dr. Kamar Grimes MD Work Phone: 5(177)114-152519 [place] [address] 03-26-2025 14:00-0400 Heart rate 96 /min Dr. Kamar Grimes MD Work Phone: 7(091)888-733019 [place] [address] 03-26-2025 14:00-0400 Inhaled oxygen flow rate 2 L/min Dr. Kamar Grimes MD Work Phone: 1(286)150-239619 [place] [address] 03-26-2025 14:00-0400 Respiratory rate 20 /min Dr. Kamar Grimes MD Work Phone: 2(747)347-620819 [place] [address] 03-26-2025 14:00-0400 SaO2% (BldA) [Mass fraction] 93 % Dr. Kamar Grimes MD Work Phone: 3(037)844-758719 [place] [address] 03-26-2025 14:00-0400 Systolic blood pressure 140 mm[Hg] Dr. Kamar Grimes MD Work Phone: 0(243)704-125419 [place] [address] 03-26-2025 09:28-0400 Body temperature 97.9 [degF] Dr. Kamar Grimes MD Work Phone: 5(402)298-786519 [place] [address] 03-26-2025 03:09-0400 Body mass index (BMI) [Ratio] 40.4 kg/m2 Dr. Kamar Grimes MD Work Phone: 5(986)390-291819 [place] [address] 03-26-2025 03:09-0400 Body weight [address] Kamar Grimes MD Work Phone: 3(048)083-651419 [place] [address] 03-24-2025 13:04-0400 Body height 170.[address] Kamar Grimes MD Work Phone: 2(198)386-334531 [place] [address] 03-20-2025 08:00-0400 Inhaled oxygen concentration 25 % Dr. Kamar Grimes MD Work Phone: 5(566)869-497419 [place] [address] 03-19-2025 06:45-0400 Diastolic blood pressure 66 mm[Hg] Dr. Kamar Grimes MD Work Phone: 0(365)994-349319 [place] [address] 03-19-2025 06:45-0400 Systolic blood pressure 90 mm[Hg] Dr. Kamar Grimes MD Work Phone: 9(521)959-657419 [place] [address] 03-19-2025 06:00-0400 Body temperature 100.1 [degF] Dr. Kamar Grimes MD Work Phone: 7(945)056-835619 [place] [address] 03-19-2025 06:00-0400 Heart rate 97 /min Dr. Kamar Grimes MD Work Phone: 8(489)760-600419 [place] [address] 03-19-2025 06:00-0400 Inhaled oxygen concentration 40 % Dr. Kamar Grimes MD Work Phone: 4(042)259-845319 [place] [address] 03-19-2025 06:00-0400 Respiratory rate 14 /min Dr. Kamar Grimes MD Work Phone: 4(550)751-133019 [place] [address] 03-19-2025 06:00-0400 SaO2% (BldA) [Mass fraction] 97 % Dr. Kamar Grimes MD Work Phone: 3(384)495-879019 [place] [address] 03-19-2025 05:06-0400 Body mass index (BMI) [Ratio] 38.6 kg/m2 Dr. Kamar Grimes MD Work Phone: 4(789)874-067619 [place] [address] 03-19-2025 05:06-0400 Body weight 111.[address] Kamar Grimes MD Work Phone: 2(145)288-724019 [place] [address] 03-18-2025 20:58-0400 Body height [address] Kamar Grimse MD Work Phone: 9(736)123-139819 [place] [address] 03-18-2025 20:09-0400 Body temperature 90.4 [degF] Dr. Kamar Grimes MD Work Phone: 7(510)283-283019 [place] [address] 03-18-2025 20:09-0400 Diastolic blood pressure 13 mm[Hg] Dr. Kamar Grimes MD Work Phone: [facility] 03-18-2025 20:09-0400 Heart rate 63 /min Dr. Kamar Grimes MD Work Phone: [facility] 03-18-2025 20:09-0400 Respiratory rate 14 /min Dr. Kamar Grimes MD Work Phone: 9(075)167-918019 [place] [address] 03-18-2025 20:09-0400 SaO2% (BldA) [Mass fraction] 95 % Dr. Kamar Grimes MD Work Phone: 6(260)415-622831 [place] [address] 03-18-2025 20:09-0400 Systolic blood pressure 32 mm[Hg] Dr. Kamar Grimes MD Work Phone: 3(546)590-251419 [place] [address] 03-18-2025 20:00-0400 Inhaled oxygen concentration 40 % Dr. Kamar Grimes MD Work Phone: 4(106)747-895119 [place] [address] 03-18-2025 17:48-0400 Inhaled oxygen flow rate 4 L/min Dr. Kamar Grimes MD Work Phone: 4(961)409-361491 [address] 03-18-2025 14:56-0400 Body height 170.[address] Kamar Grimes MD Work Phone: 5(936)227-992119 [place] [address] 03-18-2025 14:56-0400 Body mass index (BMI) [Ratio] 38.7 kg/m2 Dr. Kamar Grimes MD Work Phone: 6(893)411-038219 [place] [address] 03-18-2025 14:56-0400 Body weight 112.[address] Kamar Grimes MD Work Phone: [facility] 10-08-2024 07:58-0400 Heart rate 80 /min Dr. Kamar Grimes MD Work Phone: [facility] 10-08-2024 06:30-0400 SaO2% (BldA) [Mass fraction] 95 % Dr. Kamar Grimes MD Work Phone: 6(825)742-281731 [place] [address] 10-07-2024 21:36-0400 Diastolic blood pressure 78 mm[Hg] Dr. Kamar Grimes MD Work Phone: 6(319)849-239331 [place] [address] 10-07-2024 21:36-0400 Systolic blood pressure 147 mm[Hg] Dr. Kamar Grimes MD Work Phone: 9(552)782-082119 [place] [address] 10-07-2024 20:02-0400 Body temperature 98.2 [degF] Dr. Kamar Grimes MD Work Phone: 1(408)156-606819 [place] [address] 10-07-2024 20:02-0400 Respiratory rate 16 /min Dr. Kamar Grimes MD Work Phone: 1(753)827-616319 [place] [address] 10-02-2024 14:29-0400 Body height 170.[address] Kamar Grimes MD Work Phone: 9(823)440-756919 [place] [address] 10-02-2024 14:29-0400 Body weight 106.[address] Kamar Grimes MD Work Phone: 1(024)957-863919 [place] [address] 10-01-2024 13:00-0400 Body mass index (BMI) [Ratio] 36.8 kg/m2 Dr. Kamar Grimes MD Work Phone: 5(759)213-050219 [place] [address] 09-18-2024 08:25-0400 Heart rate 87 /min Dr. Kamar Grimes MD Work Phone: 9(043)473-992819 [place] [address] 09-18-2024 07:25-0400 Respiratory rate 14 /min Dr. Kamar Grimes MD Work Phone: 9(270)673-764419 [place] [address] 09-18-2024 07:25-0400 SaO2% (BldA) [Mass fraction] 90 % Dr. Kamar Grimes MD Work Phone: 4(277)620-474919 [place] [address] 09-18-2024 07:20-0400 Body temperature 97.7 [degF] Dr. Kamar Grimes MD Work Phone: 7(580)155-086919 [place] [address] 09-18-2024 07:20-0400 Diastolic blood pressure 87 mm[Hg] Dr. Kamar Grimes MD Work Phone: 0(985)165-814719 [place] [address] 09-18-2024 07:20-0400 Systolic blood pressure 160 mm[Hg] Dr. Kamar Grimes MD Work Phone: 3(128)686-570819 [place] [address] 09-16-2024 14:49-0400 Inhaled oxygen flow rate 2 L/min Dr. Kamar Grimes MD Work Phone: [facility] 09-13-2024 18:26-0400 Body height 170.[address] Kamar Grimes MD Work Phone: [facility] 09-13-2024 18:26-0400 Body mass index (BMI) [Ratio] 36.3 kg/m2 Dr. Kamar Grimes MD Work Phone: [facility] 09-13-2024 18:26-0400 Body weight 105.[address] Kamar Grimes MD Work Phone: [facility] 05-05-2022 15:52-0400 Body height 167.64 cm [facility] Work Phone: Encounters Encounter Date Encounter Type Care Provider Facility Start: 05-08-2025 ambulatory Katrina Gujohna [facility] Fac[facility] ty:[facility] Start: 04-29-2025 ambulatory Katrina Gudla OLS Facili ty:[facility] Start: 04-24-2025 ambulatory Katrina Gudla OLS Facili ty:[facility] Start: 04-24-2025 Dr. Katrina Berkowitz MD -[facility] Start: 04-23-2025 Dr. Garfield Pierson MD -[facility] Work Phone: Start: 04-22-2025 Dr. Garfield Pierson MD -[facility] Work Phone: Start: 04-21-2025 ambulatory Sixto V Sibilia Facili ty:[facility] Start: 04-21-2025 Dr. Garfield Pierson MD -[facility] Work Phone: Start: 04-20-2025 Dr. Garfield Pierson MD -[facility] Work Phone: Start: 04-19-2025 Dr. Garfield Pierson MD -[facility] Work Phone: Start: 04-18-2025 ambulatory [facility] Start: 04-18-2025 End: 04-23-2025 Evaluation and management of inpatient Dr. Kamar Grimes MD Work Phone: -Progressive Care Unit Start: 04-18-2025 End: 04-23-2025 Dr. Garfield Pierson MD -[facility] Work Phone: Start: 04-16-2025 End: 04-16-2025 Dr. Kamar Grimes MD -Laboratory Work Phone: Start: 04-16-2025 End: 04-16-2025 Dr. Mike Reddy MD -[facility] Work Phone: Start: 04-16-2025 End: 04-16-[address] Kamar Grimes MD Work Phone: -[facility] Start: 04-16-2025 End: 04-16-2025 ambulatory Kamar Grimes Facility:[facility] Start: 04-09-2025 End: 04-09-2025 Dr. Kamar Grimes MD -Laboratory [facility] Start: 04-09-2025 End: 04-09-2025 ambulatory Kamar Grimes Facility:[facility] Start: 03-26-2025 Dr. Karla Bustamante DO -[facility] Work Phone: Start: 03-25-2025 Dr. Karla Bustamante DO -[facility] Work Phone: Start: 03-24-2025 Dr. Karla Bustamante DO -[facility] Work Phone: Start: 03-23-2025 Dr. Otilia Hernandez MD - [facility] Work Phone: Start: 03-22-2025 Dr. Otilia Hernandez MD - [facility] Work Phone: Start: 03-21-2025 Dr. Otilia Hernandez MD - [facility] Work Phone: Start: 03-21-2025 Dr. Antwan Gardner DO -[facility] Start: 03-20-2025 Dr. Otilia Hernandez MD - [facility] Work Phone: Start: 03-20-2025 Dr. Antwan Gardner DO -[facility] Start: 03-19-2025 Dr. Otilia Hernandez MD - [facility] Work Phone: Start: 03-19-2025 ambulatory Saul Kearney Facility:[facility] Start: 03-19-2025 Dr. Saul Kearney MD -[facility] Start: 03-18-2025 Dr. Saul Kearney MD -[facility] Work Phone: Start: 03-18-2025 ambulatory Karla Bustamante Facility:[facility] Start: 03-18-2025 End: 03-26-2025 Evaluation and management of inpatient Dr. Emili Lee MD -Intensive Care Unit Work Phone: Start: 03-18-2025 End: 03-26-2025 Dr. Karla Bustamante DO -[facility] Work Phone: Start: 03-17-2025 End: 03-17-[address] Kamar Grimes MD Work Phone: -Cat Scan [facility] Start: 03-17-[address] Kamar Grimes MD -Cat Scan [facility] Work Phone: Start: 03-17-2025 End: 03-17-2025 Dr. Kamar Grimes MD -Cat Scan [facility] Work Phone: Start: 03-17-2025 End: 03-17-2025 ambulatory Kamar Grimes Facility:[facility] Start: 03-10-2025 End: 03-10-[address] Kamar Grimes MD Work Phone: -Laboratory [place] Start: 03-10-2025 End: 03-10-[address] Kamar Grimes MD -Labor[facility] [place] Work Phone: Start: 03-10-2025 End: 03-10-2025 Dr. Kamar Grimes MD -Laboratory [place] Work Phone: Start: 03-10-2025 End: 03-10-[address] [facility] Facility:[facility] Start: 03-04-2025 Non-patient / Non-visit Dr. Carlene greco MD -[facility] Start: 03-04-2025 End: 03-04-[address] Kamar Grimes MD Work Phone: -Cardiovascular Services Start: 03-04-2025 End: 03-04-[address] Kamar Grimes MD -Cardiovascular Services Work Phone: Start: 03-04-2025 End: 03-04-2025 Dr. Carlene Salazar MD -[facility] Start: 03-04-2025 End: 03-04-[address] [facility] Facility:[facility] Start: 02-10-2025 End: 02-10-[address] Kamar Grimes MD Work Phone: -Laboratory [employer] Start: 02-10-2025 End: 02-10-[address] Kamar Grimes MD -Laboratory [facility] Work Phone: Start: 02-10-2025 End: 02-10-2025 Dr. Kamar Grimes MD -Laboratory [place] Work Phone: Start: 02-10-2025 End: 02-10-[address] [facility] Facility:[facility] Start: 10-01-[address] [facility] Facility [facility] Start: 09-18-2024 End: 10-08-2024 Evaluation and management of inpatient Dr. Rodrigo Sanches MD -Transitional Care Unit Start: 09-18-2024 Encounter for other preprocedural examination Jamie [facility] Start: 09-18-2024 Non-patient / Non-visit Dr. Mikel Jiang [facility] Work Phone: Start: 09-17-2024 Non-patient / Non-visit Dr. Mikel Jiang [facility] Work Phone: Start: 09-16-2024 Non-patient / Non-visit Dr. Mikel Jiang [facility] Work Phone: Start: 09-15-2024 Non-patient / Non-visit Dr. Emili mora MD -[facility] Work Phone: Start: 09-14-2024 ambulatory Kamar Fellows Facility:[facility] Start: 09-14-2024 End: 09-18-2024 Evaluation and management of inpatient Dr. Fahad Cavanaugh MD -[facility] 3 Work Phone: Start: 09-14-2024 Non-patient / Non-visit Dr. Emili mora MD -[facility] Work Phone: Start: 09-13-2024 Non-patient / Non-visit Dr. Cynthia Garcia [facility] Work Phone: Start: 09-13-[facility] Start: 09-12-2024 End: 09-12-[address] [facility] Facility:[facility] Start: 09-12-2024 End: 09-12-2024 Non-patient / Non-visit Dr. Tejal Holly MD -[facility] Work Phone: Start: 09-10-2024 End: 09-10-2024 ambulatory [facility] Start: 10-19-2023 End: 10-19-2023 ambulatory [facility] Work Phone: Start: 10-19-2023 End: 10-19-2023 Patient encounter procedure [facility] Start: 10-18-2022 End: 10-18-2022 ambulatory [facility] Work Phone: Start: 10-18-2022 End: 10-18-2022 Patient encounter procedure [facility] Start: 05-05-2022 End: 05-05-2022 ambulatory [facility] Work Phone: Start: 05-05-2022 End: 05-05-2022 Patient encounter procedure [facility]-Outpatient Bone Densitometry Start: 04-20-2022 End: 04-20-2022 ambulatory [facility] Work Phone: Start: 04-20-2022 End: 04-20-2022 Patient encounter procedure [facility]-Laboratory, Specimen Start: 04-19-2022 End: 04-19-2022 ambulatory [facility] Work Phone: Start: 04-19-2022 End: 04-19-2022 Patient encounter procedure [facility], [facility] Start: 11-25-2021 End: 11-25-2021 Discharged Recurring [facility]-Physical Therapy Start: 12-18-2006 End: 12-18-2006 Patient encounter procedure Sixto Nelson Work Phone: [facility] Start: 12-18-2006 Results Only Sixto Brock julian Work Phone: [facility] Procedures Date Procedure [...] red blood cell count procedure Dr. Kamar Grimse MD Work Phone: Start: 02-10-2025 Platelet mean [...] Activity Detail Author Start: 01-26-2026 Colonoscopy COLONOSCOPY [facility] Start: 05-08-2025 -[facility] Start: 04-29-2025 -[facility] Start: 04-24-2025 -[facility] Start: 04-23-2025 -[facility] Work Phone: Start: 04-23-2025 [facility] [facility] Start: 04-22-2025 -[facility] Work Phone: Start: 04-22-2025 Referral to service [facility] Start: 04-21-2025 -[facility] Work Phone: Start: 04-20-2025 Legionella pneumophila antigen assay [facility] Start: 04-20-2025 Streptococcus pneumoniae antigen assay [facility] Start: 04-20-2025 Urine culture [facility] Start: 04-20-2025 -[facility] Work Phone: Start: 04-19-2025 Following clinical pathway protocol [facility] Start: 04-19-2025 Referral to service [facility] Start: 04-19-2025 Catheterization of vein [facility] Start: 04-19-2025 Insertion of catheter into peripheral vein [facility] Start: 04-19-2025 Measuring intake and output [facility] Start: 04-19-2025 Providing care according to standard [facility] Start: 04-19-2025 Vital signs measurements [facility] Start: 04-19-2025 [facility] Start: 04-19-2025 Plain chest X-ray [facility] Start: 04-19-2025 Consultation [facility] Start: 04-19-2025 Bacterial nucleic acid assay [facility] Start: 04-19-2025 Blood culture [facility] Start: 04-19-2025 -[facility] Work Phone: Start: 04-19-2025 Following clinical pathway protocol [facility] Start: 04-18-2025 Referral to security threat analyst [facility] Start: 04-18-2025 Ambulation without limitation [facility] Start: 04-18-2025 Assessment of risk of venous thromboembolism [facility] Start: 04-18-2025 Insertion of catheter into peripheral vein [facility] Start: 04-18-2025 Measuring intake and output [facility] Start: 04-18-2025 Oxygen therapy [facility] Start: 04-18-2025 Providing care according to standard [facility] Start: 04-18-2025 Referral for physical therapy [facility] Start: 04-18-2025 Referral to occupational therapist [facility] Start: 04-18-2025 Referral to service [facility] Start: 04-18-2025 [facility] Start: 04-18-2025 Admission procedure [facility] Start: 04-18-2025 End: 04-23-2025 -[facility] Work Phone: Start: 04-18-2025 Patient referral to dietitian [facility] Start: 04-16-2025 End: 04-16-2025 Evaluation of diagnostic study results [facility] Start: 03-26-2025 [facility] Start: 03-26-2025 Patient discharge [facility] Start: 03-26-2025 Referral to service [facility] Start: 03-25-2025 -[facility] Work Phone: Start: 03-22-2025 Care planning and problem solving actions [facility] Start: 03-22-2025 [facility] Start: 03-20-2025 End: 03-21-2025 [facility] Start: 03-20-2025 Oxygen therapy [facility] Start: 03-20-2025 [facility] Start: 03-19-2025 Airway suction technique [facility] Start: 03-19-2025 Respiratory therapy [facility] Start: 03-19-2025 Consultation [facility] Start: 03-19-2025 Referral for physical therapy [facility] Start: 03-19-2025 Referral to occupational therapist [facility] Start: 03-19-2025 Weaning from mechanically assisted ventilation [facility] Start: 03-19-2025 Consultation for treatment [facility] Start: 03-18-2025 Creatine kinase [Enzymatic activity/volume] in Serum or Plasma [facility] Start: 03-18-2025 Triglycerides measurement [facility] Start: 03-18-2025 Airway suction technique [facility] Start: 03-18-2025 Following clinical pathway protocol [facility] Start: 03-18-2025 Maintenance of invasive device [facility] Start: 03-18-2025 Assessment of risk of venous thromboembolism [facility] Start: 03-18-2025 Catheterization of vein [facility] Start: 03-18-2025 Consultation [facility] Start: 03-18-2025 Continuous pulse oximetry [facility] Start: 03-18-2025 Creatinine [Mass/volume] in Urine collected for unspecified duration [facility] Start: 03-18-2025 Determination of Giang Agitation Sedation Scale (RASS) score with assessment for d [facility] Start: 03-18-2025 Electrolytes measurement, urine [facility] Start: 03-18-2025 Elevation of head of bed [facility] Start: 03-18-2025 Inhalation therapy procedure [facility] Start: 03-18-2025 Insertion of catheter into peripheral vein [facility] Start: 03-18-2025 Measuring intake and output [facility] Start: 03-18-2025 Mouth care [facility] Start: 03-18-2025 Notification of physician [facility] Start: 03-18-2025 Osmolality of Urine [facility] Start: 03-18-2025 Providing care according to standard [facility] Start: 03-18-2025 Referral to service [facility] Start: 03-18-2025 Respiratory pathogens DNA and RNA panel - Respiratory specimen by RANJIT with probe detection [facility] Start: 03-18-2025 Taking nasal swab [facility] Start: 03-18-2025 Tracheostomy care [facility] Start: 03-18-2025 Trial for daily interruption of sedation during mechanically assisted ventilation [facility] Start: 03-18-2025 Urea nitrogen measurement, urine [facility] Start: 03-18-2025 Vital signs measurements [facility] Start: 03-18-2025 [facility] Start: 03-18-2025 Airway suction technique [facility] Start: 03-18-2025 Respiratory therapy [facility] Start: 03-18-2025 Verification routine [facility] Start: 03-18-2025 Admission procedure [facility] Start: 03-18-2025 End: 03-26-2025 -[facility] Work Phone: Start: 03-18-2025 End: 03-19-2025 [facility] Start: 03-18-2025 Bacteria identified in Blood by Culture Blood Culture [facility] Start: 03-18-2025 Bacteria identified in Urine by Culture Urine Culture [facility] Start: 03-18-2025 Microscopic observation [Identifier] in Unspecified specimen by Gram stain [facility] Start: 03-18-2025 Respiratory Culture Respiratory Culture [facility] Start: 03-18-2025 Electrolytes measurement, urine [facility] Start: 03-18-2025 Urea nitrogen measurement, urine [facility] Start: 03-18-2025 Consultation [facility] Start: 03-18-[address] [facility] Start: 03-18-2025 [facility] Start: 10-08-2024 Patient discharge [facility] Start: 10-07-2024 [facility] Start: 09-30-2024 Referral to service [facility] Start: 09-27-2024 End: 09-27-2024 [facility] Start: 09-27-2024 [facility] Start: 09-24-2024 [facility] Start: 09-19-2024 Development of care plan [facility] Start: 09-19-2024 Developing a treatment plan [facility] Start: 09-19-2024 Following clinical pathway protocol [facility] Start: 09-19-2024 Peripherally inserted central catheter care [facility] Start: 09-18-2024 Consultation [facility] Start: 09-18-2024 Peripherally inserted central catheter care [facility] Start: 09-18-2024 Contact precautions [facility] Start: 09-18-2024 [facility] Start: 09-18-2024 Contact precautions [facility] Start: 09-18-2024 Provision of activity privileges [facility] Start: 09-18-2024 Wound care [facility] Start: 09-18-2024 Admission procedure [facility] Start: 09-18-2024 Introduction of urinary catheter [facility] Start: 09-18-2024 Measuring intake and output [facility] Start: 09-18-2024 Patient referral to dietitian [facility] Start: 09-18-2024 Referral to occupational therapist [facility] Start: 09-18-2024 Referral to service [facility] Start: 09-18-2024 Vital signs measurements [facility] Start: 09-18-2024 End: 09-18-2024 [facility] Start: 09-18-2024 Application of device [facility] Start: 09-18-2024 Patient discharge [facility] Start: 09-18-2024 [facility] Start: 09-16-2024 Consultation [facility] Start: 09-15-2024 Referral to service [facility] Start: 09-14-2024 Oxygen therapy [facility] Start: 09-14-2024 Referral to service [facility] Start: 09-14-2024 Admission procedure [facility] Start: 09-14-2024 Inhalation therapy procedure [facility] Start: 09-13-2024 Application of intermittent pneumatic compression device [facility] Start: 09-13-2024 Following clinical pathway protocol [facility] Start: 09-13-2024 Recommendation to continue with treatment [facility] Start: 09-13-2024 Ambulation therapy management [facility] Start: 09-13-2024 Application of device [facility] Start: 09-13-2024 Assessment of risk of venous thromboembolism [facility] Start: 09-13-2024 Catheterization of vein [facility] Start: 09-13-2024 Following clinical pathway protocol [facility] Start: 09-13-2024 Introduction of urinary catheter [facility] Start: 09-13-2024 Measuring intake and output [facility] Start: 09-13-2024 Neurovascular assessment [facility] Start: 09-13-2024 Patient education [facility] Start: 09-13-2024 Procedure discontinued [facility] Start: 09-13-2024 Provision of activity privileges [facility] Start: 09-13-2024 Referral to occupational therapist [facility] Start: 09-13-2024 Vital signs measurements [facility] Start: 09-13-2024 Wound care [facility] Start: 09-13-2024 [facility] Start: 09-13-2024 Admission procedure [facility] Start: 09-13-2024 Consultation [facility] Start: 09-13-2024 [facility] Start: 09-13-2024 Acid Fast Bacilli Culture Acid Fast Bacilli Culture [facility] Start: 09-13-2024 Acid Fast Bacilli Smear Acid Fast Bacilli Smear [facility] Start: 09-13-2024 Blood culture Blood Culture [facility] Start: 09-13-2024 Fungal Culture Fungal Culture [facility] Start: 09-13-2024 Fungal Smear Fungal Smear [facility] Start: 09-13-2024 Acid fast bacilli culture [facility] Start: 09-13-2024 Medication education [facility] Start: 09-13-2024 Mycology culture [facility] Start: 09-11-2024 Acid Fast Bacilli Culture Acid Fast Bacilli Culture [facility] Start: 09-11-2024 Acid Fast Bacilli Smear Acid Fast Bacilli Smear [facility] Start: 09-11-2024 Fungal Culture Fungal Culture [facility] Start: 09-11-2024 Acid fast bacilli culture [facility] Start: 03-03-2020 Influenza vaccination INFLUENZA (#1) [facility] Start: 2014 ADVANCE DIRECTIVE DISCUSSION ADVANCE DIRECTIVE DISCUSSION [facility] Start: 2014 BONE DENSITY BONE DENSITY [facility] Start: 2014 PNEUMOVAX AGE 65 AND OVER WITH 5YR LOOKBACK (#1) PNEUMOVAX AGE 65 AND OVER WITH 5YR LOOKBACK (#1) [facility] Start: 09-17-2009 LIPID SCREEN LIPID SCREEN [facility] Start: 08-25-2009 DIABETES SCREEN DIABETES SCREEN [facility] Start: 04-11-2007 Mammography MAMMOGRAM [facility] Start: 1999 SHINGRIX VACCINE (1 of 2) SHINGRIX VACCINE (1 of 2) [facility] Start: 01-10-1968 Urine microalbumin profile DTAP,TDAP,TD (1 - Tdap) [facility] Start: 1967 ANNUAL PCP TEAM CHRONIC DISEASE VISIT ANNUAL PCP TEAM CHRONIC DISEASE VISIT [facility] Start: 1967 BP CONTROLLED (<130/80) BP CONTROLLED (<130/80) [facility] Start: 1967 HEPATITIS C SCREENING HEPATITIS C SCREENING [facility] Acid fast bacilli culture [facility] Alanine aminotransfe rase [Enzymatic activity/volume] in Serum or Plasma [facility] Albumin [Mass/volume ] in Serum or Plasma [facility] Alkaline phosphatase [Enzymatic activity/volume] in Serum or Plasma [facility] Anion gap in Serum o r Plasma [facility] Bacteria identified in Sputum by Respiratory culture [facility] Bilirubin, total measurement [facility] BUN/Creatinine ratio [facility] Calcium [Mass/volume ] in Serum or Plasma [facility] Carbon dioxide, tota l [Moles/volume] in Central venous blood [facility] Creatinine [Mass/vol ume] in Serum or Plasma [facility] Erythrocyte mean corpuscular volume determination [facility] Erythrocyte sediment ation rate [facility] Fungus identified in Unspecified specimen by Culture [facility] Fungus identified in Unspecified specimen by Fungus stain [facility] Glucose [Mass/volume ] in Serum or Plasma [facility] Hematocrit [Volume Fraction] of Blood [facility] Hemoglobin [Mass/vol ume] in Blood [facility] Leukocytes [#/volume ] in Blood [facility] Mean corpuscular hem oglobin concentration determination [facility] Mean corpuscular hem oglobin determination [facility] Measurement of renal function [facility] Mycobacterium sp geoff ntified in Unspecified specimen by Organism specific culture [facility] Natriuretic peptide. B prohormone N-Terminal [Mass/volume] in Serum or Plasma [facility] Neutrophil count [facility] Neutrophil percent differential count [facility] Osmolality of Urine [facility] Patient Education PICC PICC [facility] Caring for Your PICC Dc PICC Line [facility] Flushing Your PICC Line at Home ED PICC Line Care [facility] Work Phone: Patient referral [facility] Work Phone: Platelets [#/volume] in Blood [facility] Potassium measurement [facility] Red blood cell count [facility] Red cell distributio n width determination [facility] Serum chloride measurement [facility] Sodium measurement [facility] Total protein measurement [facility] Urea nitrogen [Mass/ volume] in Serum or Plasma [facility] Urine culture [facility] Heart limited [facility] Vancomycin [Mass/vol ume] in Serum or Plasma --trough [facility] Immunizations Immunization Date Immunization Notes Care Provider It[facility] 04-16-2020 Influenza virus vaccine [facility] 04-16-2020 Dr. Kamar Grimes MD Work Phone: [facility] 08-09-2018 pneumococcal polysaccharide vaccine, [address] Kamar Grimes MD Work Phone: [facility] 04-26-2017 influenza, injectabl e, quadrivalent, preservative free [facility] 04-26-2017 influenza, seasonal, injectable [facility] 12-02-2015 pneumococcal conjuga te vaccine, [address] Kamar Grimes MD Work Phone: [facility] Payers Date Payer Category Payer Medicaid [id number] 2024 Self-pay [id number] 2024 Unknown [id number] 1950 Unknown [id number] 2.16840.1.350514.3.579.2.6 51 1950 Unknown [id number] 2.16840.1.763700.3.579.2.6 27 Medicaid [id number] Medicare [id number] Private Health Insurance [id number] Unknown [id number] Unknown [id number] Unknown [facility] MEDICARE O [id number] Unknown [id number] 2.16.840.1.365619.3.579.2.4 62 Unknown [id number] 2.16840.1.825194.3.579.2.4 62 Unknown [id number] 2.16.840.1.843623.3.579.2.4 62 Unknown [id number] 2.16.840.1.832786.3.579.2.4 62 Unknown [id number] 2.16.840.1.306333.3.579.2.4 62 Unknown [id number] 2.16.840.1.539596.3.579.2.4 62 Unknown [id number] 2.16.840.1.962202.3.579.2.4 62 Unknown [id number] 2.16.840.1.667787.3.579.2.4 62 Unknown [id number] 2.16.840.1.119952.3.579.2.4 62 Unknown [id number] 2.16.840.1.101301.3.579.2.4 62 Unknown [id number] 2.16.840.1.930392.3.579.2.4 62 Unknown [id number] 2.16.840.1.637218.3.579.2.4 62 Unknown [id number] 2.16.840.1.157912.3.579.2.4 62 Unknown [id number] 2.16.840.1.986489.3.579.2.4 62 Unknown [id number] 2.16.840.1.656496.3.579.2.4 62 Unknown [id number] 2.16.840.1.118943.3.579.2.4 62 Unknown [id number] 2.16.840.1.209144.3.579.2.4 62 Unknown [id number] 2.16.840.1.210512.3.579.2.4 62 Unknown [id number] 2.16.840.1.102642.3.579.2.4 62 Unknown [id number] 2.16.840.1.153273.3.579.2.4 62 Unknown [id number] 2.16.840.1.497559.3.579.2.4 62 Unknown [id number] 2.16.840.1.506564.3.579.2.4 62 Unknown [id number] 2.16.840.1.697469.3.579.2.4 62 Unknown [id number] 2.16.840.1.393373.3.579.2.4 62 Unknown [id number] 2.16.840.1.177949.3.579.2.4 62 Unknown [id number] 2.16.840.1.829266.3.579.2.4 62 Unknown [id number] 2.16.840.1.100322.3.579.2.4 62 Unknown [id number] 2.16.840.1.868860.3.579.2.4 62 Unknown [id number] 2.16.840.1.925189.3.579.2.4 62 Unknown [id number] 2.16.840.1.389366.3.579.2.4 62 Unknown [id number] 2.16.840.1.348296.3.579.2.4 62 Unknown [id number] 2.16.840.1.862244.3.579.2.4 62 Unknown [id number] 2.16.840.1.669662.3.579.2.4 62 Unknown [id number] 2.16.840.1.998286.3.579.2.4 62 Unknown [id number] 2.16.840.1.279540.3.579.2.4 62 Unknown [id number] 2.16.840.1.862806.3.579.2.4 62 Unknown [id number] 2.16.840.1.819380.3.579.2.4 62 Unknown [id number] 2.16.840.1.475460.3.579.2.4 62 Unknown [id number] 2.16.840.1.256389.3.579.2.4 62 Unknown [id number] 2.16.840.1.465082.3.579.2.4 62 Unknown [id number] 2.16.840.1.757964.3.579.2.4 62 Unknown [id number] 2.16.840.1.105595.3.579.2.4 62 Unknown [id number] 2.16.840.1.812932.3.579.2.4 62 Social History Date Type Detail Facility Start: 06-12-2006 End: 04-18-2025 Tobacco smoking status NHIS Former smoker [facility] Start: 06-12-2006 Alcohol intake 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) [facility] Sex Assigned At Not on file [facility] Start: 06-11-2020 End: 06-11-2020 Tobacco smoking status PRIS Unknown if ever smoked [facility] Start: 06-11-2020 Non-smoker [facility] Start: 1950 Sex Assigned At Female [facility] Start: 09-18-2024 End: 10-08-2024 Sex Female (finding) [facility] Sex [facility] NEGATED: Highlighted row Not [facility] Medical Equipment Procedure Code Equipment [...] Assessment Result Facility 04-23-2025 Functional status Independent [facility] Work Phone: 04-22-2025 Functional status Ambulates [facility] Work Phone: 03-26-2025 Functional status Bathroom Privilege [facility] Work Phone: 03-19-2025 Functional status Bedrest [facility] Work Phone: 10-08-2024 Functional status Ambulates;Up a d shanna;Bathroom Privilege;Back to bed [facility] Work Phone: 09-18-2024 Functional status Ambulates;Ricky r;Bathroom Privilege [facility] Work Phone: 09-17-2024 Functional status Tolerates Activity Well [facility] Work Phone: Mental Status Date Assessment Result Facility 04-23-2025 Cognitive function Voice/Name [facility] Work Phone: 03-26-2025 Cognitive function Voice/Name [facility] Work Phone: 03-19-2025 Cognitive function Voice/Name [facility] Work Phone: 10-08-2024 Cognitive function Voice/Name [facility] Work Phone: 10-05-2024 Cognitive function Appropriate;Cooperativ e [facility] Work Phone: 09-18-2024 Cognitive function Voice/Name [facility] Work Phone: Clinical Notes 09-13-2024 to 04-23-2025 Note Date & Type Note Facility 04-23-2025 Discharge summary Note Date/Time April 23, 2025 6:11pm [facility] Medical Records Department [address] [place] [id number] Discharge Summary 04/23/25 1708 MR#: [id number] Acct: [id number] Name: OSCAR WOO Rep #:[id number] : 1950 75 From: [facility] PCP: Dr. Kamar Grimes MD Status:ADM IN Location: [place] [address] Providers Date of Admission: 04/18/25 Date of Discharge: 04/23/25 Primary Care Physician: Dr. Kamar Grimes MD Consultations 04/18/25 22:05 Consult: Nephrology Routine Consulting Provider: Keya Basilio Reason for Consult: worsening hyponatremia, severe hypochloremia, ELVIA EMERGENT Consult: No MD Notified: Yes Date Notified: 04/19/25 Time Notified: 06:47 Method of Notification: Answering Service 04/19/25 14:46 Consult: Die Storage Clerk / Pulmonary Medicine Routine Consulting Provider: Intensivists/Pulmonary Med Reason for Consult: hypotension, dizzy EMERGENT Consult: No Notified: Yes Date Notified: 04/19/25 Time Notified: 14:44 Method of Notification: Answering Service Reason For Visit: HYPONATREMIA, FALLS Diagnosis Discharge Diagnosis (1) Hyponatremia: Status: Acute Code(s): E87.1 - Hypo-osmolality and hyponatremia Plan Patient is a 75-year-old female who presented to [facility] ED on 04/18/2025 with worsening hyponatremia and [...] Repeat sodium was 123. Improved 3 mEq. Ring Packer is consulted. Calculated serum iron 267. Measured [...] normal range.UA negative, hCG 1.015, protein 30. Ring Packer on board 04/21: Serum sodium improved 127 today. K4.2. Bicarb of 37.5. Anion gap 5. Osmolar gap was normal as mentioned above. 04/22 was seen by security threat analyst. Sodium and chloride at baseline. Sodium 130 [...] % (Auto) 66.8, Lymph % (Auto) 18.2 L,[place] % (Auto) 8.7, Eos % (Auto) 3.7, [...] PO DINNER RLS 04/16/25 OXYGEN - Supplemental ([facility] INFORMATIONAL USE ONLY) hypoxia 04/21/25 carvedilol [...] 0.5 mg PO DINNER OXYGEN - Supplemental ([facility] INFORMATIONAL USE ONLY) Patient Comments: DME: [...] [facility] Charges/Coding Visit Charges Inpatient E&M: 50784 Disch Hosp >30min 04/23/25 1711 <Electronically signed by Garfield Pierson MD> Cosigner Signature (if applicable): CC: Dr. Kamar Grimes MD; Dr. Garfield Pierson MD~ Signed [facility] Work Phone: 1([phone] 654-355710-22-2025 [place] [address]-22-2025 Hospital Discharge instructionsAdditional Instructions Date of Discharge: 04/23/25[facility] Work Phone: 1(202) 151-114810-21-2025 Progress note Author Garfield Pierson [facility] Note Date/Time April 22, 2025 6 :33pm [facility] Medical Records Department [address] [place] [address] Progress Note - Hospitalist 04/22/25 1729 MR#: [id number] Acct: [id number] Name: OSCAR WOO Rep #:[id number] : 1950 75 From: Garfield Chi PCP: Dr. Kamar Grimes MD Status:ADM IN Location: [place] [address]- 1 Reason for Visit Chief Complaint: Worsening [...] % (Auto) 66.8, Lymph % (Auto) 18.2 L,[place] % (Auto) 8.7, Eos % (Auto) 3.7, [...] is a 75-year-old female who presented to [facility] ED on 04/18/2025 with worsening hyponatremia and [...] Repeat sodium was 123. Improved 3 mEq. Ring Packer is consulted. Calculated serum iron 267. Measured [...] normal range.UA negative, hCG 1.015, protein 30. Ring Packer on board 04/21: Serum sodium improved 127 today. K4.2. Bicarb of 37.5. Anion gap 5. Osmolar gap was normal as mentioned above. 04/22 was seen by security threat analyst. Sodium and chloride at baseline. Sodium 130 [...] % (Auto) 66.8, Lymph % (Auto) 18.2 L,[place] % (Auto) 8.7, Eos % (Auto) 3.7, [...] Calcium 9.7 Charges/Coding Visit Charges Inpatient E&M: 40406 Subs Hosp L2 04/22/25 1734 <Electronically signed by Garfield Pierson MD> Cosigner Signature (if applicable): CC: ~ Signed [facility] Work Phone: [phone] 891-721210-21-2025 Progress note Author Keya Basilio [facility] Note Date/Time April 23, 2025 7 :52pm [facility] Medical Records Department [address] [place] [address] Progress Note - Nephrology 04/22/251724 MR#: [id number] Acct: [id number] Name: OSCAR WOO Rep #:[id number] : 1950 75 From: Keya kendrick MD PCP: Dr. Kamar Grimes MD Status:ADM IN Location: [place] [address] Subjective Subjective no new events Objective Data [...] % (Auto) 66.8, Lymph % (Auto) 18.2 L,[place] % (Auto) 8.7, Eos % (Auto) 3.7, [...] Cosigner Signature (if applicable): CC: ~ Signed [facility] Work Phone: [phone]) 681-866310-20-2025 Consult note Author Keya Basilio [facility] Note Date/Time April 21, 2025 9 :53pm [facility] Medical Records Department [address] [place] [address] Consultation - Nephrology 04/21/252049 MR#: [id number] Acct: [id number] Name: OSCAR WOO Rep #:[id number] : 1950 75 From: Keya kendrick MD PCP: Dr. Kamar Grimes MD Status:[facility] Assessment & Plan Assessment/Plan (1) [...] right now. no urinary complaints. [facility] Medical History Saccular aneurysm Infection of [...] RLS 5 Unknown History OXYGEN - Supplemental ([facility] hypoxia 04/21/25 Unknown Hi story INFORMATIONAL [...] 74.4 H, Lymph % (Auto) 13.3 L, [place] % (Auto) 8.1, Eos % (Auto) 2.6, [...] applicable): CC: Dr. Kamar Grimes MD~ Signed [facility] Work Phone: [phone]) 890-968510-20-2025 Progress note Author Garfield Pierson [facility] Note Date/Time April 21, 2025 9 :39am [facility] Medical Records Department [address] [place] [address] Progress Note - Hospitalist 04/21/25832 MR#: [id number] Acct: [id number] Name: OSCAR WOO Rep #:[id number] : 1950 75 From: Garfield Chi PCP: Dr. Kamar Grimes MD Status:ADM IN Location: ICU [place] [address] 1-1 Reason for Visit Chief Complaint: Worsening [...] Sl. Cloudy, Urine pH 6.0, Ur Specific [place] 1.010, Urine Protein 30 H, Urine Glucose [...] 74.4 H, Lymph % (Auto) 13.3 L, [place] % (Auto) 8.1, Eos % (Auto) 2.6, [...] is a 75-year-old female who presented to [facility] ED on 04/18/2025 with worsening hyponatremia and [...] Repeat sodium was 123. Improved 3 mEq. Ring Packer is consulted. Calculated serum iron 267. Measured [...] normal range.UA negative, hCG 1.015, protein 30. Ring Packer on board 04/21: Serum sodium improved 127 [...] Sl. Cloudy, Urine pH 6.0, Ur Specific [place] 1.010, Urine Protein 30 H, Urine Glucose [...] 74.4 H, Lymph % (Auto) 13.3 L, [place] % (Auto) 8.1, Eos % (Auto) 2.6, [...] Calcium 9.0 Charges/Coding Visit Charges Inpatient E&M: 52616 Subs Hosp L2 04/21/25 0839 <Electronically signed by Garfield Pierson MD> Cosigner Signature (if applicable): CC: ~ Signed [facility] Work Phone: [phone] 181-506610-19-2025 Progress note Author Reginaldo Fatima [facility] Note Date/Time April 20, 2025 3 :29pm [facility] Medical Records Department [address] [place] [address] Progress Note - Die Storage Clerk 04/20/25 1428 MR#: [id number] Acct: [id number] Name: OSCAR WOO Rep #:[id number] : 1950 75 From: Reginaldo Fatima MD [...] mls @ 15 mls/hr 04/19/25 02:16 IV .[id number] PRN Saline Flush Sodium Chloride 250 mls @ 15 mls/hr 04/19/25 02:16 IV .[id number] PRN Additional IVPB Infusion Melatonin 10 mg [...] (Auto) 72.5 H, Lymph % (Auto) 15.6 L,[place] % (Auto) 7.9, Eos % (Auto) 2.7, [...] (Auto) 73.3 H, Lymph % (Auto) 14.8 L,[place] % (Auto) 7.7, Eos % (Auto) 2.9, [...] Sl. Cloudy, Urine pH 6.0, Ur Specific [place] 1.010, Urine Protein 30 H, Urine Glucose [...] No focal consolidation. Mild cardiomegaly. Reading Location: [id number] Assessment and Plan . Assessment and plan: [...] Cosigner Signature (if applicable): CC: ~ Signed [facility] Work Phone: [phone] 390-414810-19-2025 Progress note Author Garfield Pierson [facility] Note Date/Time April 20, 2025 9 :21am [facility] Medical Records Department [address] [place] [address] Progress Note - Hospitalist 04/20/25725 MR#: [id number] Acct: [id number] Name: OSCAR WOO Rep #:[id number] : 1950 75 From: Garfield Chi PCP: [...] (Auto) 72.5 H, Lymph % (Auto) 15.6 L,[place] % (Auto) 7.9, Eos % (Auto) 2.7, [...] (Auto) 73.3 H, Lymph % (Auto) 14.8 L,[place] % (Auto) 7.7, Eos % (Auto) 2.9, [...] No focal consolidation. Mild cardiomegaly. Reading Location: [facility] Physical Exam Narrative Seen and examined Patient [...] is a 75-year-old female who presented to [facility] ED on 04/18/2025 with worsening hyponatremia and [...] Repeat sodium was 123. Improved 3 mEq. Ring Packer is consulted. Calculated serum iron 267. Measured [...] normal range.UA negative, hCG 1.015, protein 30. Ring Packer on board 2. ELVIA with mild hyperkalemia, [...] 35 minutes. Charges/Coding Visit Charges Inpatient E&M: 59704 Subs Hosp L3 04/20/25 0821 <Electronically signed by Garfield Pierson MD> Cosigner Signature (if applicable): CC: ~ Signed [facility] Work Phone: [phone] 552-447610-18-2025 Consult note Author Reginaldo Fatima [facility] Note Date/Time April 19, 2025 7 :01pm [facility] Medical Records Department [address] [place] [address] Consultation - Die Storage Clerk 04/19/25 1750 MR#: [id number] Acct: [id number] Name: OSCAR WOO Rep #:[id number] : 1950 75 From: Reginaldo Fatima MD [...] denies SOB but her brain still seems foggy. [facility] Medical History Saccular aneurysm Infection of [...] mls @ 15 mls/hr 04/19/25 02:16 IV .[id number] PRN Saline Flush Sodium Chloride 250 mls @ 15 mls/hr 04/19/25 02:16 IV .[id number] PRN Additional IVPB Infusion Melatonin 10 mg [...] 72.5 H, Lymph % (Auto) 15.6 L, [place] % (Auto) 7.9, Eos % (Auto) 2.7, [...] No focal consolidation. Mild cardiomegaly. Reading Location: [facility] Assessment and Plan . Assessment and plan: [...] this encounter was done via Telemedicine 04/19/25 8533 <Electronically signed by Reginaldo Fatima MD> Cosigner Signature (if applicable): CC: Dr. Kamar Grimes MD~ Signed [facility] Work Phone: [phone] 718-846110-18-2025 Progress note Author Garfield Pierson [facility] Note Date/Time April 19, 2025 5 :45pm [facility] Medical Records Department [address] [place] [address] Progress Note - Hospitalist 04/19/25 1137 MR#: [id number] Acct: [id number] Name: OSCAR WOO Rep #:[id number] : 1950 75 From: Garfield Chi PCP: Dr. Kamar Grimes MD Status:ADM IN Location: ICU [facility]20 1- Reason for Visit Chief Complaint: Worsening hyponatremia [...] 77.8 H, Lymph % (Auto) 10.9 L, [place] % (Auto) 8.9, Eos % (Auto) 1.6, [...] is a 75-year-old female who presented to [facility] ED on 04/18/2025 with worsening hyponatremia and [...] Repeat sodium was 123. Improved 3 mEq. Ring Packer is consulted. Calculated serum iron 267. Measured [...] 35 minutes. Charges/Coding Visit Charges Inpatient E&M: 91821 Subs Hosp L3 04/19/25 9626 <Electronically signed by Garfield Pierson MD> Cosigner Signature (if applicable): CC: ~ Signed [facility] Work Phone: [phone]) 982-636210-18-2025 Progress note Author Keya Basilio [facility] Note Date/Time April 19, 2025 5 :34pm [facility] Medical Records Department [address] [place] [address] Progress Note 04/19/25 1633 MR#: [id number] Acct: [id number] Name: OSCAR WOO Rep #:[id number] : 1950 75 From: Keya kendrick MD PCP: Dr. Kamar Grimes MD Status:ADM IN Location: ICU ICU 07-03 Progress Note attempted to see earlier. was not in room. chart reviewed. normal baseline sodium. hyponatremia, hypochloremia, likely volume depletion. 04/19/25 1634 <Electronically signed by Keya Basilio MD> Keya Basilio MD Cosigner Signature (if applicable): CC: ~ Signed [facility] Work Phone: [phone]) 938-834510-18-2025 Radiology Diagnostic study [facility]10-18-2025 Radiology Diagnostic study [facility]10-18-2025 History and physical note Author Jermaine [facility] Note Date/Time April 18, 2025 1 1:05pm [facility] Medical Records Department [address] [place] [address] H&P Exam - Hospitalist 04/18/25 1717 MR#: [id number] Acct: [id number] Name: OSCAR WOO Rep #:[id number] : 1950 75 From: Jermaine cardona DO PCP: Dr. Kamar Grimes MD Status:ADM [facility] HPI - General General Date of Admission: 04/18/25 Date of Service: 04/18/25 Chief Complaint: Worsening hyponatremia and falls HPI Narrative OSCAR WOO, is a 75 F who presented to [facility] on 04/18/2025 with worsening hyponatremia and falls [...] be admitted for further management. [facility] Medical History Saccular aneurysm Infection of [...] 77.8 H, Lymph % (Auto) 10.9 L, [place] % (Auto) 8.9, Eos % (Auto) 1.6, [...] is a 75-year-old female who presented to [facility] ED on 04/18/2025 with worsening hyponatremia and [...] 86 minutes. Charges/Coding Visit Charges Inpatient E&M: 45083 Init Hosp L3 04/18/25 4466 <Electronically signed by Jermaine Simms DO> Cosigner Signature (if applicable): CC: Dr. Jermaine Simms DO; Dr. Kamar Grimes MD~ Signed [facility] Work Phone: [phone] 520-965510-17-2025 Discharge summary Author Deion Levy [facility] Note Date/Time April 18, 2025 6 :26pm [facility] Medical Records Department [address] [place] [address] Emergency Department Summary 04/18/25 MR#: [id number] Acct: [id number] Name: OSCAR WOO Rep #:[id number] : 1950 75 From: Deion Levy MD [...] Prior similar symptoms: No Recent Illness/Hospitalization: No [facility] Medical History Saccular aneurysm Infection of prosthetic [...] steroids recently. There is no concern for Fres[place]'s disease. She in my opinion does not [...] 77.8 H Lymph % (Auto) 10.9 L [place] % (Auto) 8.9 Eos % (Auto) 1.6 [...] Hypertension, Depression Disposition Disposition: Acute Care Hospital [facility] What to do if you have Problems For any increased pain, shortness of breath, bleeding, nausea or vomiting, chestpain, or any unexpected problems, contact your Primary Care Provider. Call [facility] ([phone]) or report to the closest Emergency Room. Call 911 if necessary. 04/18/251725 <Electronically signed by Deion Levy MD> Cosigner Signature (if applicable): CC: Dr. Kamar Grimes MD ~ Signed [facility] Work Phone: [phone] Discharge summary Author Deion Levy [facility] Note Date/Time April 18, 2025 5 :26pm [facility] Medical Records Department [address] [place] [address] Emergency Department Summary 04/18/25 MR#: [id number] Acct: [id number] Name: OSCAR WOO Rep #:[id number] : 1950 75 From: Deion Levy MD [...] similar symptoms: No Recent Illness/Hospitalization: No [facility] Medical History Saccular aneurysm Infection of prosthetic [...] steroids recently. There is no concern for [place]'s disease. She in my opinion does not have Buhl syndrome either. I believe her symptoms are [...] 77.8 H Lymph % (Auto) 10.9 L [place] % (Auto) 8.9 Eos % (Auto) 1.6 [...] Hypertension, Depression Disposition Disposition: Acute Care Hospital [facility] What to do if you have Problems For any increased pain, shortness of breath, bleeding, nausea or vomiting, chestpain, or any unexpected problems, contact your Primary Care Provider. Call [facility] ([phone]) or report to the closest Emergency Room. Call 911 if necessary. 04/18/25 1726 <Electronically signed by Deion Levy MD> Cosigner Signature (if applicable): CC: Dr. Kamar Grimes MD ~ Signed [facility] Work Phone: [phone] Progress note Author Mike Reddy [facility] Note Date/Time April 16, 2025 4 :26pm [facility] [address] [place] [address]. [address] [place] [address] OFFICE VISIT Date of Service: 04/16/25 MR#: [id number] Acct: [id number] Name: OSCAR WOO Rep #: [id number] : 1950 Provider: Dr. Ajit Reddy MD Age/Sex: 75/F Location: [facility] Status: Signed HPI HPI History of Present Illness Details: Patient is a 75-year-old white female that comes in with family for follow-up after prolonged hospitalization at [facility]. Patient was admitted with profound hypotension and [...] it on in office Intake Visit Reasons: [facility] HOSP F/U, 03/27/25, AAA Cash Surrender Calculator Required: No Accompanied by: Cousin, Sister Is [...] mg capsule,delayed 30 mg PO DAILY DEPRES RAHEME 09/11/24 04/16/25 History release (Cymbalta) aspirin 81 [...] Negative for SOB at rest or SOB orthopnea\SOB lying down GI GI: Positive for nausea; [...] hospitalized March 2025. It was noted to bestable but it was no reference and I [...] Orders: Orders 12 Lead EKG performed by [facility] Today I10 - Essential (primary) hypertension Echo, [...] Additional Comments: This note was generated with Mimoonaation software. It may contain incorrectwords, spelling, and [...] applicable) CC: Dr. Kamar Grimes MD ~ [place] [facility] Work Phone: [phone]) 393-138909-24-2025 Discharge summary Author Karlapatrick Bustamante [facility] Note Date/Time March 26, 2025 1:42pm [facility] Medical Records Department [address] [place] [address] Discharge Summary 03/26/25 1309 MR#: [id number] Acct: [id number] Name: OSCAR WOO Rep #:[id number] : 1950 75 From: Karla Bustamante DO PCP: Dr. Kamar Grimes MD Status:ADM IN Location: [place] [id number]- 1 Providers Date of Admission: 03/18/25 Date of Discharge: 03/26/25 Primary Care Physician: Dr. Kamar Grimes MD Consultations 03/18/25 20:43 Consult: Die Storage Clerk / Pulmonary Medicine Routine Consulting Provider: [facility] Reason for Consult: Vent management, undifferentiated shock EMERGENT Consult: No MD Notified: Yes Date Notified: 03/19/25 Time Notified: 00:10 Method of Notification: Text 03/19/25 00:33 Consult: Onc/Wound/sheet metal duct installer apprentice Routine Comment: Reason for Consult:: Per ICU [...] 75-year-old white female who presents emergency department [facility] on 03/18/2025 with altered mental status. She [...] her insurance company which they declined for correction facility. Home health was set up. We [...] 78.0 H, Lymph % (Auto) 9.6 L, [place] % (Auto) 10.1 H, Eos % (Auto) [...] Abdirashid Smith; Reginaldo Fatima; Alden Arcos; Rosalind Kye; Jose Angel Handley; Petros Akbar; Lamin Campos; [...] Health Service Charges/Coding Visit Charges Inpatient E&M: 96356 Disch Hosp >30min 03/26/25 1342 <Electronically signed by Karla Bustamante DO> Cosigner Signature (if applicable): CC: Dr. Kamar Grimes MD; Dr. Karla Bustamante DO~ Signed [facility] Work Phone: [phone]) 574-318309-24-2025 [facility]09-23-2025 Progress note Author Karla Bustamante [facility] Note Date/Time March 25, 2025 6:11pm [facility] Medical Records Department [address] [place] [address] Progress Note - Hospitalist 03/25/25 1802 MR#: [id number] Acct: [id number] Name: OSCAR WOO Rep #:[id number] : 1950 75 From: Karla Bustamante DO PCP: Dr. Kamar Grimes MD Status:ADM IN Location: [place] [address] Reason for Visit Chief Complaint: Altered mental [...] (Auto) 79.2 H, Lymph % (Auto) 9.4L, [place] % (Auto) 9.3, Eos % (Auto) 1.4, [...] from insurance Charges/Coding Visit Charges Inpatient E&M: 20399 Subs Hosp L2 Date medically ready for discharge: 03/24/25 Reason for DC delay: Precert pending from insurance 03/25/251810 <Electronically signed by Karla Bustamante DO> Cosigner Signature (if applicable): CC: ~ Signed [facility] Work Phone: [phone] Progress note Author Karla Bustamante [facility] Note Date/Time March 24, 2025 4:50pm [facility] Medical Records Department [address] [place] [address] Progress Note - Hospitalist 03/24/25 1636 MR#: [id number] Acct: [id number] Name: OSCAR WOO Rep #:[id number] : 1950 75 From: Karla Bustamante DO PCP: Dr. Kamar Grimes MD Status:ADM IN Location: [place] [address] Reason for Visit Chief Complaint: Altered mental [...] 136/78 H 94 Nasal Cannula 2 03/24/25 12:26 03/24/25 15:01 03/24/25 15:01 03/24/25 12:26 03/24/25 12:26 03/24/25 12:03/24/25 16:00 FiO2 03/20/25 08:00 Oxygen Flow Rate (L/min) [...] (Auto) 75.3 H, Lymph % (Auto) 9.8L, [place] % (Auto) 12.2 H, Eos % (Auto) [...] from insurance Charges/Coding Visit Charges Inpatient E&M: 30208 Subs Hosp L2 Date medically ready for discharge: 03/24/25 Reason for DC delay: Precert pending from insurance 03/24/25 1650 <Electronically signed by Karla Bustamante DO> Cosigner Signature (if applicable): CC: ~ Signed [facility] Work Phone: [phone]) 309-624109-22-2025 Progress note Author Sixto Andrade [facility] Note Date/Time March 24, 20[facility] [address] [place] [address] Progress Note - Infect Disease 03/24/25 1429 MR#: [id number] Acct: [id number] Name: OSCAR WOO Rep #:[id number] : 1950 75 From: Sixto calhoun MD PCP: Dr. Kamar Grimes MD Status:ADM IN Location: [place] [address] Physical Exam Narrative Feeling better, no fever, [...] Cosigner Signature (if applicable): CC: ~ Signed [facility] Work Phone: 1([phone]) 516-900109-21-2025 Progress note Author Otilia Hernandez [facility] Note Date/Time March 23, 2025 5:07pm [facility] Medical Records Department [address] [place] [address] Progress Note 03/23/25 1207 MR#: [id number] Acct: [id number] Name: OSCAR WOO Rep #:[id number] : 1950 75 From: Otilia Hernandez MD PCP: Dr. Kamar Grimes MD Status:ADM IN Location: [place] [address] Subjective Subjective Patient seen and examined. She [...] 72.4 H, Lymph % (Auto) 15.5 L, [place] % (Auto) 9.8, Eos % (Auto) 1.6, [...] medically stable Charges/Coding Visit Charges Inpatient E&M: 43375 Subs Hosp L2 03/23/25 1707 <Electronically signed by Otilia Hernandez MD> Otilia Hernandez MD Cosigner Signature (if applicable): CC: ~ Signed [facility] Work Phone: [phone]) 148-520109-20-2025 Progress note Author Otilia [facility] Note Date/Time March 22, 2025 3:17pm [facility] Medical Records Department [address] [place] [address] Progress Note 03/22/25 1015 MR#: [id number] Acct: [id number] Name: OSCAR WOO Rep #:[id number] : 1950 75 From: Otilia Hernandez MD PCP: Dr. Kamar Grimes MD Status:ADM IN Location: [place] [address]- Subjective Subjective Patient seen and examined. She [...] 90.1 H, Lymph % (Auto) 5.1 L, [place] % (Auto) 4.1, Eos % (Auto) 0.0, [...] SCDs, Lovenox Charges/Coding Visit Charges Inpatient E&M: 52496 Subs Hosp L2 03/22/25 0087 <Electronically signed by Otilia Hernandez MD> Otilia Hernandez MD Cosigner Signature (if applicable): CC: ~ Signed [facility] Work Phone: [phone]) 384-376909-20-2025 Progress note Author John Qunin [facility] Note Date/Time March 22, 2025 12:32pm [facility] Medical Records Department [address] [place] [address] Progress Note - Die Storage Clerk 03/22/25 1230 MR#: [id number] Acct: [id number] Name: OSCAR WOO Rep #:[id number] : 1950 75 From: John Chi PCP: Dr. Kamar Grimes MD Status:ADM IN Location: [place] [id number]- 1 Objective Data Objective Data Vital Signs: [...] 03/22/25 10:18 Intake Total 9694.60 Output Total 6753 Balance 2919.60 Current Meds Ordered / Administered: [...] / Sodium Chloride CONT INF Not Given .F31P44C KACEY Protocol 5 MCG/MIN Pantoprazole Sodium 40 mg/ 100 mls @ 300 mls/hr 03/19/25 10:00 03/22/25 10:18 Sodium Chloride IV Infused Q24 KACEY Infusion Meropenem 1 gm/ Sodium 100 mls @ 33 mls/hr 03/19/25 10:00 03/22/25 11:36 Chloride IV 33 mls/hr Q12 KACEY Administration Sodium Chloride 250 mls @ 15 mls/hr 03/18/25 21:14 03/22/25 06:04 IV Infused .[id number] PRN Infusion Saline Flush Sodium Chloride 250 mls @ 15 mls/hr 03/18/25 21:14 IV .X31N31P PRN Additional IVPB Infusion Sodium Chloride 1,000 [...] 90.1 H, Lymph % (Auto) 5.1 L, [place] % (Auto) 4.1, Eos % (Auto) 0.0, [...] Cosigner Signature (if applicable): CC: ~ Signed [facility] Work Phone: [phone]) 334-493809-19-2025 Progress note Author Otilia Hernandez [facility] Note Date/Time March 21, 2025 5:21pm [facility] Medical Records Department [address] [place] [address] Progress Note 03/21/25 1207 MR#: [id number] Acct: [id number] Name: OSCAR WOO Rep #:[id number] : 1950 75 From: Otilia Hernandez MD [...] (Auto) 90.8 H, Lymph % (Auto) 3.4L, [place] % (Auto) 4.6, Eos % (Auto) 0.1, [...] SCDs, Lovenox Charges/Coding Visit Charges Inpatient E&M: 28629 Subs Hosp L2 03/21/25 1721 <Electronically signed by Otilia Hernandez MD> Otilia Hernandez MD Cosigner Signature (if applicable): CC: ~ Signed [facility] Work Phone: [phone] Progress note Author Sixto Andrade [facility] Note Date/Time March 21, 2025 10:21am [facility] Medical Records Department [address] [place] [address] Progress Note - Infect Disease 03/21/25 1019 MR#: [id number] Acct: [id number] Name: OSCAR WOO Rep #:[id number] : 1950 75 From: Sixto calhoun MD [...] Cosigner Signature (if applicable): CC: ~ Signed [facility] Work Phone: [phone] 511-277509-19-2025 Progress note Author Antwan Gardner [facility] Note Date/Time March 21, 2025 8:54am [facility] Medical Records Department [address] [place] [address] Progress Note - Die Storage Clerk 03/21/25 0720 MR#: [id number] Acct: [id number] Name: OSCAR WOO Rep #:[id number] : 1950 75 From: Antwan Gardner DO [...] the patient. This note was generated with [employer] dictation software. It may contain incorrectwords, spelling, [...] (Auto) 90.8 H, Lymph % (Auto) 3.4L, In[place] % (Auto) 4.6, Eos % (Auto) 0.1, [...] affect normal Charges/Coding Visit Charges Inpatient E&M: 56371 Subs Hosp L3 03/21/25 0854 <Electronically signed by Antwan Gardner DO> Cosigner Signature (if applicable): CC: ~ Signed [facility] Work Phone: [phone]) 132-914409-18-2025 Consult note Author Saroj Rodriguez [facility] Note Date/Time March 20, 2025 9:23pm [facility] Medical Records Department [address] [place] [address] Pharmacokinetic/Renal -Consult 03/20/252121 MR#: [id number] Acct: [id number] Name: OSCAR WOO Rep #:[id number] : 1950 75 From: Saroj العراقي od [...] Signature (if applicable): Date CC: ~ Signed [facility] Work Phone: 1([phone]) 508-728209-18-2025 Progress note Author Otilia Hernandez [facility] Note Date/Time March 20, 2025 4:05pm [facility] Medical Records Department [address] [place] [address] Progress Note 03/20/25 1352 MR#: [id number] Acct: [id number] Name: OSCAR WOO Rep #:[id number] : 1950 75 From: Otilia Hernandez MD [...] 90.9 H, Lymph % (Auto) 4.1 L, [place] % (Auto) 4.1, Eos % (Auto) 0.0, [...] replacement. There is good alignment. [facility] Physical Ex[facility] Const oriented x3 and [...] SCDs, Lovenox Charges/Coding Visit Charges Inpatient E&M: 20693 Subs Hosp L2 03/20/25 1605 <Electronically signed by Otilia Hernandez MD> Otilia Hernandez MD Cosigner Signature (if applicable): CC: ~ Signed [facility] Work Phone: [phone]) [phone] Consult note Author [facility] Note Date/Time March 20, 2025 10:41am [facility] Medical Records Department [address] [place] [address] Consultation - Infectious Dx 03/20/25 1035 MR#: [id number] Acct: [id number] Name: OSCAR WOO Rep #:[id number] : 1950 75 From: Sixto calhoun MD [...] neg except as noted above. [facility] Medical History Infection and inflammatory reaction [...] 90.9 H, Lymph % (Auto) 4.1 L, [place] % (Auto) 4.1, Eos % (Auto) 0.0, [...] replacement. There is good alignment. Reading Location: [place] [address] 03/20/25 104 <Electronically signed by Sixto Andrade MD> Cosigner Signature (if applicable): CC: Dr. Kamar Grimes MD~ Signed [facility] Work Phone: [phone]) 107-115509-18-2025 Progress note Author Antwan Gardner [facility] Note Date/Time March 20, 2025 9:23am [facility] Medical Records Department [address] [place] [address] Progress Note - Die Storage Clerk 03/20/25 0727 MR#: [id number] Acct: [id number] Name: OSCAR WOO Rep #:[id number] : 1950 75 From: Antwan Gardner DO [...] 90.9 H, Lymph % (Auto) 4.1 L, [place] % (Auto) 4.1, Eos % (Auto) 0.0, [...] appropriately. Psych cooperative Charges/Coding Procedures Hospitalists Procedures: 81316 Critical Care 1st Hr 03/20/25922 <Electronically signed by Antwan Gardner DO> Cosigner Signature (if applicable): CC: ~ Signed [facility] Work Phone: [phone]) [phone] [facility]iology [facility] Consult note Author Saul Kearney [facility] Note Date/Time March 20, 2025 6:59am [facility] Medical Records Department [address] [place] [address] Consultation - Cardiology 03/20/25 0652 MR#: [id number] Acct: [id number] Name: OSCAR WOO Rep #:[id number] : 1950 75 From: Saul Kearney MD [...] tachycardia with no acute changes. [facility] Medical History Infection and inflammatory reaction [...] 90.9 H, Lymph % (Auto) 4.1 L, [place] % (Auto) 4.1, Eos % (Auto) 0.0, [...] 90.9 H, Lymph % (Auto) 4.1 L, [place] % (Auto) 4.1, Eos % (Auto) 0.0, [...] applicable): CC: Dr. Kamar Grimes MD~ Signed [facility] Work Phone: [phone]) 220-155909-17-2025 Progress note Author Claire Mayorga [facility] Note Date/Time March 19, 2025 7:34pm [facility] Medical Records Department [address] [place] [address] Progress Note - Hospitalist 03/19/251932 MR#: [id number] Acct: [id number] Name: OSCAR WOO Rep #:[id number] : 1950 75 From: Claire Mayorga MD PCP: Dr. Kamar Grimes MD Status:ADM IN Location: ICU ICU02-1 Hospitalist Note ICU physician recommended ID consultation and possible UE CT. Will place consultfor ID and await their further recommendations. 03/19/251933 <Electronically signed by Claire Mayorga MD> Cosigner Signature (if applicable): CC: ~ Signed [facility] Work Phone: [phone]) [phone] Progress note Author Otilia Hernandez [facility] Note Date/Time March 19, 2025 3:59pm [facility] Medical Records Department [address] [place] [address] Progress Note 03/19/25 1411 MR#: [id number] Acct: [id number] Name: OSCAR WOO Rep #:[id number] : 1950 75 From: Otilia Hernandez MD [...] 84.3 H, Lymph % (Auto) 7.4 L, [place] % (Auto) 7.0, Eos % (Auto) 0.0, [...] Clarity Clear, Urine pH 6.0, Ur Specific [place] 1.015, Urine Protein 30 H, Urine Glucose [...] 83.0 H, Lymph % (Auto) 11.9 L, [place] % (Auto) 4.2, Eos % (Auto) 0.1, [...] IMPRESSION: No acute intracranial process. Reading Location: [id number] Chest X-Ray 03/18/25 15:35 IMPRESSION: Bilateral low lung volumes. No acute cardiopulmonary abnormality. Reading Location: [id number]-[id number]-RG Chest X-Ray 03/18/25 17:44 IMPRESSION: 1. Endotracheal tube tip 3.1 cm above the abigail. 2. Enteric tube appropriately positioned terminating in the upper midabdomen. 3. Cardiomegaly, with increased vascular markings and possible interstitial edema. Reading Location: [facility] KUB X-Ray 03/18/25 18:00 IMPRESSION: Enteric tube terminates appropriately within the stomach. Persistent IV contrast opacifying the kidneys suggesting medical renal disease with delayed excretion. Reading Location: [facility] Abdomen/Pelvis CTA 03/18/25 18:50 IMPRESSION: 1. No acute or active inflammatory intra-abdominal pathology. 2. Stable saccular infrarenal abdominal aortic aneurysm measuring up to 4.4 cm. 3. Indeterminate 15 mm right adrenal gland nodule, probably adenoma. Suggest follow-up dedicated adrenal CT or MRI in 12 months to assess stability. Reading Location: [id number] Chest X-Ray 03/18/25 19:02 IMPRESSION: 1. New right subclavian approach central venous catheter, tip at the lower SVC. 2. Stable positioning of the endotracheal and enteric tubes. 3. Unchanged lung aeration. Stable cardiomegaly. Reading Location: [facility] Echocardiogram 03/19/25 01:33 Interpretation Summary Normal LV [...] patient's body habitus and position. Reading Location: [place] [address] Physical Exam Const Constitutional Narrative: Intubated, sedated, [...] SCDs, Lovenox Charges/Coding Visit Charges Inpatient E&M: 74220 Subs Hosp 03/19/25 1550 <Electronically signed by Otilia Hernandez MD> Otilia Hernandez MD Cosigner Signature (if applicable): CC: ~ Signed [facility] Work Phone: [phone]) [phone] Discharge summary Author Deion Levy [facility] Note Date/Time March 19, 2025 3:24pm [facility] Medical Records Department [address] [place] [address] Emergency Department Summary 03/18/25 MR#: [id number] Acct: [id number] Name: OSCAR WOO Rep #:[id number] : 1950 75 From: Deion Levy MD PCP: Dr. Kamar Grimes MD Status:ADM IN Location: ICU ICU02-1 HPI History of Present Illness Chief Complaint: Alt LOC Detail of Chief Complaint: Altered mental status per squad. Nurses concern for possible stroke. Informant: patient and EMS Onset/Context/Timing Onset: - (Last known at baseline March 17 at 1600) Context: - (Unknown) Timing: Continuous (Presumed) Quality: Speaks slowly and is not as active Location: Presents from home Current Severity: Mild Maximum Severity: Moderate Worsened by: Unknown/nothing Relieved by: Unknown/nothing Associated Symptoms Associated Symptoms: No urine output since yesterday Narrative Narrative: Patient is a 75-year-old woman. She arrived by [place]. She was met at the ambulance entrance because she reportedly had slurred speech. She was last known well at 160o on March 17. Family called [facility]. She has a bruise noted lateral left [...] similar symptoms: No Recent Illness/Hospitalization: No PFSH PFS Medical History Infection and inflammatory reaction due [...] 84.3 H Lymph % (Auto) 7.4 L [place] % (Auto) 7.0 Eos % (Auto) 0.0 [...] Color Urine Clarity Urine pH Ur Specific [place] Urine Protein Urine Glucose (UA) Urine Ketones [...] (Auto) Neut % (Auto) Lymph % (Auto) [place] % (Auto) Eos % (Auto) Baso % [...] Clarity Clear Urine pH 6.0 Ur Specific [place] 1.015 Urine Protein 30 H Urine Glucose [...] IMPRESSION: No acute intracranial process. Reading Location: [id number]-AX Chest X-Ray 03/18/25 15:35 IMPRESSION: Bilateral low lung volumes. No acute cardiopulmonary abnormality. Reading Location: UBD-SAUKG-II Chest X-Ray 03/18/25 17:44 IMPRESSION: 1. Endotracheal tube tip 3.1 cm above the abigail. 2. Enteric tube appropriately positioned terminating in the upper midabdomen. 3. Cardiomegaly, with increased vascular markings and possible interstitial edema. Reading Location: [facility] KUB X-Ray 03/18/25 18:00 IMPRESSION: Enteric tube terminates appropriately within the stomach. Persistent IV contrast opacifying the kidneys suggesting medical renal disease with delayed excretion. Reading Location: [facility] Abdomen/Pelvis CTA 03/18/25 18:50 IMPRESSION: 1. No acute or active inflammatory intra-abdominal pathology. 2. Stable saccular infrarenal abdominal aortic aneurysm measuring up to 4.4 cm. 3. Indeterminate 15 mm right adrenal gland nodule, probably adenoma. Suggest follow-up dedicated adrenal CT or MRI in 12 months to assess stability. Reading Location: [facility] Chest X-Ray 03/18/25 19:02 IMPRESSION: 1. New right subclavian approach central venous catheter, tip at the lower SVC. 2. Stable positioning of the endotracheal and enteric tubes. 3. Unchanged lung aeration. Stable cardiomegaly. Reading Location: [facility] I did review the CAT scan. [...] She also desaturated. She was ventilated by [id number] by respiratory therapist and me. Once her saturation reached 97%she was intubated easily with a 7.5 Moldovan endotracheal tube. The tube was seenpassing through [...] Heather first attempt. Using Seldinger technique 7.5 Moldovan triple-lumen was placed without difficulty. Blood was aspirated from all 3 ports. Will obtain chest x-ray to confirm placement and evaluate for pneumothorax. Chest x-ray status post right subclavian line placement reveals the line to be in proper position. There is no evidence of pneumothorax or hemothorax. Comments:: Urban Planner is asked to page the hospitalist at [phone]. Procedures Other Procedures Procedure(s): 7.5 Moldovan triple-lumen placed right subclavian. Documentation under MDM portion of the medical records. Critical Care Time Critical Care Time: Yes Critical care time (excluding procedures): 30-74 minutes (34), Including time spent: (History, physical, documentation, independent or potation laboratory results and images, treatment for hypotension of unknown cause), Discussing w/Patient &/or Family/Tavern Keeper (Inform patient that since she has gotten worseand has multiple medical problems she will require intubation admission ICU), Discussing w/Consultants (Hospitalist) and Arranging Admission or Transfer Discharge Plan Dx/Rx/DC Orders Clinical Impression: Acute on chronic respiratory failure with hypoxia and hypercapnia, Acute hypotension, Debility, Acute kidney injury, Acute dehydration, Bacteria in urine, Hypothermia Disposition Disposition: Acute Care Hospital [facility] Discharge Date/Time: 03/18/25 20:50 What to do if you have Problems For any increased pain, shortness of breath, bleeding, nausea or vomiting, chestpain, or any unexpected problems, contact your Primary Care Provider. Call [facility] ([phone]) or report to the closest Emergency Room. Call 911 if necessary. 03/19/25 1524 <Electronically signed by Deion Levy MD> Cosigner Signature (if applicable): CC: Dr. Kamar Grimes MD ~ Signed [facility] Work Phone: [phone]) 701-794109-17-2025 Consult note Author Una Smith [facility] Note Date/Time March 19, 2025 3:18pm [facility] Medical Records Department [address] [place] [address] Pharmacokinetic/Renal -Consult 03/18/252150 MR#: [id number] Acct: [id number] Name: OSCAR WOO Rep #:[id number] : 1950 75 From: Una Smith PCP: [...] Labs: Trough: Vancomycin (03/20/25 @ 21:00) 03/18/25 763 <Electronically signed by Una Smith> Date _ Una Smith 03/19/25 7728 <Electronically signed by Emili Lee MD> Cosigner Signature (if applicable): Date Emili Lee MD CC: ~ Signed [facility] Work Phone: [phone]) [phone] Progress note Author Antwan Gardner [facility] Note Date/Time March 19, 2025 10:41am [facility] Medical Records Department [address] [place] [address] Progress Note 03/19/25 0809 MR#: [id number] Acct: [id number] Name: OSCAR WOO Rep #:[id number] : 1950 75 From: Antwan Gardner DO PCP: Dr. Kamar Grimes MD Status:ADM IN Location: ICU ICU02-1 Progress Note The patient was seen and examined this morning, in follow up from salt manager evaluation overnight. The patient initially presented to [...] <Electronically signed by Antwan Gardner DO> Antwan Lerma Signature (if applicable): CC: ~ Signed [facility] Work Phone: [phone]) [phone] NoteAcceptable Specimen? Acceptable Specimen(Evaluation not needed) Gram Stain 2+ White Blood Cells Rare Gram positive rods No Epithelial cellsWMcCullough-Hyde Memorial HospitalComment on above:Performed By: #### M100.2400, M100.1999 ####[facility] [address] [place], [phone] Progress note Author Rivera Ramírez [facility] Note Date/Time March 19, 2025 6:51am [facility] Medical Records Department [address] [place] [address] Progress Note - Hospitalist 03/19/25 0647 MR#: [id number] Acct: [id number] Name: OSCAR WOO Rep #:[id number] : 1950 75 From: Rivera Pollock PCP: Dr. Kamar Grimes MD Status:ADM IN Location: ICU ICU02-1 Hospitalist Note 8282 called by nursing supervisor cooler service to assist with arterial line. upon arrival, [...] Cosigner Signature (if applicable): CC: ~ Signed [facility] Work Phone: [phone]) 330-731809-17-2025 Radiology Diagnostic study [facility]09-17-2025 Consult note Author Wally Waddell [facility] Note Date/Time March 19, 2025 1:27am [facility] Medical Records Department [address] [place] [address] Consultation - Die Storage Clerk 03/19/25 0121 MR#: [id number] Acct: [id number] Name: VIRIDIANA WOOISIDORO Dowling Rep #:[id number] : 1950 75 From: Wally mueller MD PCP: Dr. Kamar Grimes MD Status:ADM IN Location: ICU ICU02-1 HPI Consult Data Date of Consult: 03/19/25 HPI Narrative HPI Narrative: 75-year-old female with a history of restless leg syndrome, hypertension, depression, hypertension presented [facility] ED 03/18/2025 due to altered mental status. She had a recent CTA w/ a Infrarenal AAA and repeat CTA showed no rupture, no obvious PE. She was intubated and started on vasopressors and broad abx for ? Septic shock. [facility] Medical History Infection and inflammatory reaction [...] / Sodium Chloride CONT INF 10 mcg/min .[id number] KACEY 18.8 mls/hr Titration Protocol 5 MCG/MIN [...] mls @ 15 mls/hr 03/18/25 21:14 IV .H11A42G PRN Saline Flush Sodium Chloride 250 mls @ 15 mls/hr 03/18/25 21:14 IV .A61C94I PRN Additional IVPB Infusion Sodium Chloride 1,000 mls @ 1 mls/hr 03/18/25 21:14 IV .Q48H PRN Saline Flush Vancomycin HCl 1,250 mg/ 275 mls @ 167 mls/hr 03/19/25 21:30 Sodium Chloride IV Q24H [facility] Propofol 1,000 mg in 100 mls @ [...] 1 lab 03/20/25 20:00 Vancomycin Trough/Random Due 03/20/25 22:00 DAILY [facility] Physical Exam Vital Signs/Image Vital Signs/Narrative: Vital [...] 84.3 H, Lymph % (Auto) 7.4 L, [place] % (Auto) 7.0, Eos % (Auto) 0.0, [...] Clarity Clear, Urine pH 6.0, Ur Specific [place] 1.015, Urine Protein 30 H, Urine Glucose [...] IMPRESSION: No acute intracranial process. Reading Location: [id number]-[id number] Chest X-Ray 03/18/25 15:35 IMPRESSION: Bilateral low lung volumes. No acute cardiopulmonary abnormality. Reading Location: TST-[id number]-WE Chest X-Ray 03/18/25 17:44 IMPRESSION: 1. Endotracheal tube tip 3.1 cm above the abigail. 2. Enteric tube appropriately positioned terminating in the upper midabdomen. 3. Cardiomegaly, with increased vascular markings and possible interstitial edema. Reading Location: [facility] KUB X-Ray 03/18/25 18:00 IMPRESSION: Enteric tube terminates appropriately within the stomach. Persistent IV contrast opacifying the kidneys suggesting medical renal disease with delayed excretion. Reading Location: [facility] Abdomen/Pelvis CTA 03/18/25 18:50 IMPRESSION: 1. No acute or active inflammatory intra-abdominal pathology. 2. Stable saccular infrarenal abdominal aortic aneurysm measuring up to 4.4 cm. 3. Indeterminate 15 mm right adrenal gland nodule, probably adenoma. Suggest follow-up dedicated adrenal CT or MRI in 12 months to assess stability. Reading Location: [id number] Chest X-Ray 03/18/25 19:02 IMPRESSION: 1. New right subclavian approach central venous catheter, tip at the lower SVC. 2. Stable positioning of the endotracheal and enteric tubes. 3. Unchanged lung aeration. Stable cardiomegaly. Reading Location: [facility] Assessment and Plan . Assessment and [...] applicable): CC: Dr. Kamar Grimes MD~ Signed [facility] Work Phone: [phone]) 459-394709-16-2025 History and physical note Author Emili Lee [facility] Note Date/Time March 18, 2025 8:45pm [facility] Medical Records Department [address] [place] [address] H&P Exam - Hospitalist 03/18/251937 MR#: [id number] Acct: [id number] Name: OSCAR WOO Rep #:[id number] : 1950 75 From: Emili Lee MD PCP: Dr. Kamar Grimes MD Status:ADM IN Location: ICU ICU02-1 HPI - General General Date of Admission: 03/18/25 Date of Service: 03/18/25 Chief Complaint: Altered mental status HPI Narrative OSCAR WOO, is a 75-year-old female with a history of restless leg syndrome, hypertension, depression, hypertension presented [facility] ED 03/18/2025 due to altered mental status. [...] not been having any vomiting. [facility] Medical History Infection and inflammatory reaction [...] 84.3 H, Lymph % (Auto) 7.4 L, [place] % (Auto) 7.0, Eos % (Auto) 0.0, [...] Clarity Clear, Urine pH 6.0, Ur Specific [place] 1.015, Urine Protein 30 H, Urine Glucose [...] IMPRESSION: No acute intracranial process. Reading Location: TJC-OWKTNP-PP Chest X-Ray 03/18/25 15:35 IMPRESSION: Bilateral low lung volumes. No acute cardiopulmonary abnormality. Reading Location: QUR-BDYAW-ZM Chest X-Ray 03/18/25 17:44 IMPRESSION: 1. Endotracheal [...] renal disease with delayed excretion. Reading Location: [id number]-MI Assessment & Plan Assessment/Plan (1) Shock: (2) [...] started -Patient be admitted to the ICU, salt manager consulted - Patient received 1 L of IV fluids, not given further IV fluids due to recent diagnosis of heart failure and chest x-ray coronary congestion # Acute hypoxic hypercapnic respiratory failure -Patient came in altered, developed progressive hypoxia and was found to be hypercapnic, ultimately required intubation and sedation -Admit to ICU -Workup as above -Scheduled nebs -Will check proBNP - Die Storage Clerk consult #Acute renal failure - Creatinine was [...] Vasopressors started Charges/Coding Visit Charges Inpatient E&M: 60027 Init Hosp L3 03/18/252044 <Electronically signed by Emili Lee MD> Cosigner Signature (if applicable): CC: Dr. Kamar Grimes MD; Dr. Emili Lee MD~ Signed [facility] Work Phone: 1([phone]) 517-770709-16-2025 Evaluation note* Diagnosis Onset Date Resolution Status Admit Date Acute dehydration acute [facility] 2024 7:38pm Acute hypotension acute [facility] 2024 7:38pm Acute kidney injury acute [facility] 2024 7:38pm Acute respiratory failure with hypoxia and hypercapnia acute Sep tember 2024 7:38pm Bacteria in urine acute [facility] 2024 7:38pm Debility acute March 7:38pm Hypothermia acute March 7:38pm Shock acute March 7:38pm Acute on chronic respiratory failure with hypoxia and hypercapnia chronic March 18, 2025 7:38pm [facility] Work Phone: [phone]) [phone] Evaluation note* Diagnosis Onset Date Resolution Status Admit Date Acute dehydration acute [facility] 2024 7:38pm Acute hypotension acute [facility] 2024 7:38pm Acute kidney injury acute [facility] 2024 7:38pm Acute respiratory failure with hypoxia and hypercapnia [place] [facility] [place]24 7:38pm Bacteria in urine acute [facility] 2024 7:38pm Debility acute March 7:38pm Essential (primary) hypertension acute March 18, 2025 7:38pm Hypothermia acute March 7:38pm Infection of prosthetic shoulder joint acute March 18, 2025 7:38pm Saccular aneurysm acute [facility] 2024 7:38pm Shock acute March 7:38pm Acute on chronic respiratory failure with hypoxia and hypercapnia chronic March 18, 2025 7:38pm [facility] Work Phone: [phone]) 792-251809-16-2025 Evaluation note* Diagnosis Onset Date Resolution Status Admit Date Saccular aneurysm acute [facility] 2024 7:38pm Acute dehydration resolved [facility] 2024 7:38pm Acute hypotension resolved [facility] 2024 7:38pm Acute kidney injury resolved [facility] 2024 7:38pm Acute on chronic respiratory failure with hypoxia and hypercapnia resolved March 18, 2025 7:38pm Acute respiratory failure with hypoxia and hypercapnia resolved Mar 7:38pm Bacteria in urine resolved [facility] 2024 7:38pm Hypothermia resolved March 7:38pm [...] ctober 2024 5:23pm Hyponatremia resolved April 5:23pm [facility] Work Phone: [phone]) 454-528809-16-2025 History and physical note [facility] Medical Records Department [address] [place] [address] H&P Exam - Hospitalist 03/18/251937 MR#: [id number] Acct: [id number] Name: OSCAR WOO Rep #:[id number] : 1950 75 From: Emili Lee MD PCP: Dr. Kamar Grimes MD Status:ADM IN Location: ICU ICU02-1 HPI - General General Date of Admission: 03/18/25 Date of Service: 03/18/25 Chief Complaint: Altered mental status HPI Narrative OSCAR WOO, is a 75-year-old female with a history of restless leg syndrome, hypertension, depression, hypertension presented [facility] ED 03/18/2025 due to altered mental status. [...] not been having any vomiting. [facility] Medical History Infection and inflammatory reaction [...] 84.3 H, Lymph % (Auto) 7.4 L, [place] % (Auto) 7.0, Eos % (Auto) 0.0, [...] Clarity Clear, Urine pH 6.0, Ur Specific [place] 1.015, Urine Protein 30 H, Urine Glucose [...] IMPRESSION: No acute intracranial process. Reading Location: [facility] Chest X-Ray 03/18/25 15:35 IMPRESSION: Bilateral low lung volumes. No acute cardiopulmonary abnormality. Reading Location: LOI-MKBVH-BS Chest X-Ray 03/18/25 17:44 IMPRESSION: 1. Endotracheal [...] renal disease with delayed excretion. Reading Location: [id number]-KU Assessment & Plan Assessment/Plan (1) Shock: (2) [...] rule out septic component at this t noheila -Did order Pro-Kwesi, ESR, CRP however due to procedures and imaging these have yet to be obtained, will not delay antibiotics while awaiting labs, de-escalate as appropriate -Broad-spectrum antibiotics to be started -Patient be admitted to the ICU, salt manager consulted - Patient received 1 L of IV fluids, not given further IV fluids due to recent diagnosis of heart failure and chest x-ray coronary congestion # Acute hypoxic hypercapnic respiratory failure -Patient came in altered, developed progressive hypoxia and was found to be hypercapnic, ultimatelyrequired intubation and sedation -Admit to ICU -Workup as above -Scheduled nebs -Will check proBNP - Die Storage Clerk consult #Acute renal failure - Creatinine was [...] Vasopressors started Charges/Coding Visit Charges Inpatient E&M: 02086 Init Hosp L3 03/18/252044 Cosigner Signature (if applicable): CC: Dr. Kamar Grimes MD; Dr. Emili Lee MD~ Signed [facility]09-16-2025 Radiology Diagnostic study note [facility] Imaging Services [address] [place], [place] [id number] CTA Abd/Pelvis W/WO Contrast MR#: [id number] Acct: [id number] Name: OSCAR WOO Rep #: [id number] : 1950 F 75 From: Kamran Leonard MD PCP: Dr. Kamar Grimes MD Status: ADM IN Study:CTA Abd/Pelvis W/WO Contrast Date of Ex am: 03/18/25 Exam# [id number] Ordering Dr: Mai Levy MD PROCEDURE: CTA [...] 12 months to assess stability. Reading Location: [facility] CC: Dr. Kamar Grimes MD; Dr. Deion Levy MD ~ Hand Twister: Signed [facility]09-16-2025 Radiology Diagnostic study note [facility] Imaging Services [address] [place] [address] Chest 1 View (Portable) MR#: [id number] Acct: [id number] Name: OSCAR WOO Rep #: [id number] : 1950 F 75 From: Kamran Leonard MD PCP: Dr. Kamar Grimes MD Status: ADM IN Study:Chest 1 View (Portable) Date of Exam: 03/18/25 Exam# [id number] Ordering Dr: Mai Levy MD PROCEDURE: CHEST [...] Unchanged lung aeration. Stable cardiomegaly. Reading Location: [id number]-DH CC: Dr. Kamar Grimes MD; Dr. Deion Levy MD ~ Hand Twister: Signed [facility]09-16-2025 Radiology Diagnostic study note [facility] Imaging Services [address] [place] [address] Chest 1 View (Portable) MR#: [id number] Acct: [id number] Name: OSCAR WOO Rep #: [id number] : 1950 F 75 From: Kamran Leonard MD PCP: Dr. Kamar Grimes MD Status: REG ER Study:Chest 1 View (Portable) Date of Exam: 03/18/25 Exam# [id number] Ordering Dr: Mai Levy MD PROCEDURE: CHEST [...] markings and possible interstitial edema. Reading Location: [id number] CC: Dr. Kamar Grimes MD; Dr. Deion Levy MD ~ Hand Twister: Signed [facility]09-16-2025 Radiology Diagnostic study note [facility] Imaging Services [address] [place] [address] Abdomen Single View (Portable) MR#: [id number] Acct: [id number] Name: OSCAR WOO Rep #: [id number] : 1950 F 75 From: Kamran Leonard MD PCP: Dr. Kamar Grimes MD Status: REG ER Study:Abdomen Single View (Portable) Date of Exam: 03/18/25 Exam# [id number] Ordering Dr: Mai Levy MD PROCEDURE: ABDOMEN [...] renal disease with delayed excretion. Reading Location: [facility] CC: Dr. Kamar Grimes MD; Dr. Deion Levy MD ~ Hand Twister: Signed [facility]09-16-2025 Radiology Diagnostic study note [facility] Imaging Services [address] [place], [place] [address] Chest PA and Lateral MR#: [id number] Acct: [id number] Name: OSCAR WOO Rep #: [id number] : 1950 F 75 From: Janelle Mares MD PCP: Dr. Kamar Grimes MD Status: REG ER Study:Chest PA and Lateral Date of Exam: 03/18/25 Exam# [id number] Ordering Dr: Mai Levy MD PROCEDURE: CHEST [...] volumes. No acute cardiopulmonary abnormality. Reading Location: MQX-[id number]-QI CC: Dr. Kamar Grimes MD; Dr. Deion Levy MD ~ Hand Twister: Signed [facility]09-16-2025 Radiology Diagnostic study note [facility] Imaging Services [address] [place] [address] Brain/Head without Contrast MR#: [id number] Acct: [id number] Name: OSCAR WOO Rep #: [id number] : 1950 F 75 From: Jennifer Shin MD PCP: Dr. Kamar Grimes MD Status: REG ER Study:Brain/Head without Contrast Date of Exa m: 03/18/25 Exam# [id number] Ordering Dr: Mai Levy MD PROCEDURE: BRAIN/HEAD [...] IMPRESSION: No acute intracranial process. Reading Location: VWN-[id number] CC: Dr. Kamar Grimes MD; Dr. Deion Levy MD ~ Hand Twister: Signed [facility]09-15-2025 [facility] Rad[facility] Diagnostic study note [facility] Imaging Services [address] [place], [place] [address] Chest PA and Lateral MR#: [id number] Acct: [id number] Name: OSCAR WOO Rep #: [id number] : 1950 F 75 From: Kaushal Orozco DO PCP: Dr. Kamar Grimes MD Status: REG CLI Study:Chest PA and Lateral Date of Exam: 02/10/25 Exam# [id number] Ordering Dr: Jennifer Grimes MD PROCEDURE: CHEST [...] compared to the prior exam. Reading Location: EXC-UKWVO-OO CC: Dr. Kamar Grimes MD ~ Hand Twister: Signed [facility]04-08-2025 Hospital Discharge instructions Additional Instructions Discharge home 10/08/2024, IV ATB thru 10/25/2024, [facility] PT/SN.[facility] Work Phone: 1([phone]) [phone] Progress note Author Sixto Andrade [facility] Note Date/Time October 07, 2024 7:23 pm [facility] Medical Records Department [address] [place] [address] Progress Note - Infect Disease 10/07/241920 MR#: [id number] Acct: [id number] Name: OSCAR WOO Rep #:[id number] : 1950 74 From: Sixto calhoun MD PCP: Dr. Kamar Grimes MD Status:ADM IN Location: [place] [address] Physical Exam Narrative New bilat eye redness [...] Cosigner Signature (if applicable): CC: ~ Signed [facility] Work Phone: 1(379) 317-347804-07-2025 Progress note [facility] Medical Records Department [address] [place] [address] Progress Note - Infect Disease 10/07/241920 MR#: [id number] Acct: [id number] Name: OSCAR WOO Rep #:[id number] : 1950 74 From: Sixto calhoun MD PCP: Dr. Kamar Grimes MD Status:ADM IN Location: [address] Physical Exam Narrative New bilat eye redness [...] Cosigner Signature (if applicable): CC: ~ Signed [facility]04-07-2025 Consult note Author Ashley Sue [facility] Note Date/Time October 07, 2024 2:14 pm [facility] Medical Records Department [address] [place] [address] Pharmacokinetic/Renal -Consult 09/29/24 1013 MR#: [id number] Acct: [id number] Name: OSCAR WOO Rep #:[id number] : 1950 74 From: Ashley Sue PCP: Dr. Kamar Grimes MD Status:ADM IN [facility] has been consulted [...] 1414 <Electronically signed by Sixto montoya MD> Rebeligner Signature (if applicable): Date Sixto Andrade MD CC: ~ Signed [facility] Work Phone: 1(687) 209-733104-07-2025 Consult note Author Tino Law [facility] Note Date/Time October 07, 2024 2:14 pm [facility] Medical Records Department [address] [place] [address] Pharmacokinetic/Renal -Consult 10/01/24912 MR#: [id number] Acct: [id number] Name: OSCAR WOO Rep #:[id number] : 1950 74 From: Tino Law PCP: Dr. Kamar Grimes MD Status:ADM IN Location: [place] [address] Consult Antibiotic Management Pharmacy has been consulted [...] and time ordered]: 10/06 @ 0830 10/01/24 09 <Electronically signed by Tino calhoun> Date _ Tino Law 10/07/24 1414 <Electronically signed by Sixto montoya MD> Cosigner Signature (if applicable): Date __ Sixto Andrade MD CC: ~ Signed [facility] Work Phone: 1(993) 351-534804-07-2025 Consult note [facility] Medical Records Department [address] [place] [address] Pharmacokinetic/Renal -Consult 09/29/24 1013 MR#: [id number] Acct: [id number] Name: OSCAR WOO Rep #:[id number] : 1950 74 From: Ashley Sue PCP: Dr. Kamar Grimes MD Status:ADM IN Location: [facility] TCU- Consult Antibiotic Management Pharmacy has been consulted [...] _ Ashley Sue 10/07/24 1414 jan COTTER> Cosignjennifer Signature (if applicable): Date Sixto Andrade MD CC: ~ Signed [facility]04-07-2025 Consult note [facility] Medical Records Department [address] [place] [address] Pharmacokinetic/Renal -Consult 10/01/24912 MR#: [id number] Acct: [id number] Name: OSCAR WOO Rep #:[id number] : 1950 74 From: Tino Law PCP: Dr. Kamar Grimes MD Status:ADM IN Y Location: [place] [address] Consult Antibiotic Management Pharmacy has been consulted [...] __ Sixto Andrade MD CC: ~ Signed [facility]04-06-2025 Consult note Author Jonh Khalil [facility] Note Date/Time October 06, 2024 12:5 3pm [facility] Medical Records Department [address] [facility] [place] [address] Pharmacokinetic/Renal -Consult 10/06/24 0956 MR#: [id number] Acct: [id number] Name: OSCAR WOO Rep #:[id number] : 1950 74 From: Jonh kurtz PCP: Dr. Kamar Grimes MD Status:ADM IN Location: [place] [address] Consult Antibiotic Management Pharmacy has been consulted [...] Date Rodrigo Sanches MD CC: ~ Signed [facility] Work Phone: 1(461) 493-497204-06-2025 Consult note [facility] Medical Records Department [address] [place] [address] Pharmacokinetic/Renal -Consult 10/06/24 0956 MR#: [id number] Acct: [id number] Name: ABELOSCAR Rep #:[id number] : 1950 74 From: Jonh kurtz PCP: Dr. Kamar Grimes MD Status:ADM IN Y Location: [place] [address] Consult Antibiotic Management Pharmacy has been consulted [...] Date Rodrigo Sanches MD CC: ~ Signed [facility]04-01-2025 Discharge summary Author Rodrigo Sanches [facility] Note Date/Time October 01, 2024 8:03 pm [facility] Medical Records Department [address] [place] [address] Discharge Summary 10/01/241955 MR#: [id number] Acct: [id number] Name: OSCAR WOO Rep #:[id number] : 1950 74 From: Rodrigo Sanches MD PCP: Dr. Kamar Grimes MD Status:ADM IN Location: [place] [address] Providers Date of Admission: 09/18/24 Primary Care [...] 30mg daily, Mirtazapine 15mg qhs, stable chronic fci use, GDR not recommended. * Dry eyes [...] 10/08/2024, IV ATB thru 10/25/2024, [facility] PT/SN. Physical Exam Const alert General Appearance: [...] 10/08/2024, IV ATB thru 10/25/2024, [facility] PT/SN. Please Follow Up With: Fahad Cavanaugh [...] 10/08/2024, IV ATB thru 10/25/2024, [facility] PT/SN. Discharge Orders/Prescriptions Prescriptions: Continued losartan 50 [...] cbc, vanc trough, and esr. Fax to [phone]. Routine picc care per protocol. rifampin 300 [...] Grimes MD; Dr. Rodrigo Sanches MD~ Signed [facility] Work Phone: 1(434) 339-555104-01-2025 Discharge summary [facility] Medical Records Department [address] [place] [address] Discharge Summary 10/01/241955 MR#: [id number] Acct: [id number] Name: OSCAR WOO Rep #:[id number] : 1950 74 From: Rodrigo Sanches MD PCP: Dr. Kamar Grimes MD Status:ADM IN Location: [facility] [place] [address] Providers Date of Admission: 09/18/24 Primary Care [...] 30mg daily, Mirtazapine 15mg qhs, stable chronic fci use, GDR not recommended. * Dry eyes [...] Discharge home 10/08/2024, IV ATB thru 10/25/2024, [facility] PT/SN. Physical Exam Const alert General [...] 10/08/2024, IV ATB thru 10/25/2024, [facility] PT/SN. Please Follow Up With: Fahad Cavanaugh [...] 10/08/2024, IV ATB thru 10/25/2024, [facility] PT/SN. Discharge Orders/Prescriptions Prescriptions: Continued losartan 50 [...] cbc, vanc trough, and esr. Fax to [phone]. Routine picc care per protocol. rifampin 300 [...] Grimes MD; Dr. Rodrigo Sanches MD~ Signed [facility]04-01-2025 [facility] Consult note Author Tino Law [facility] Note Date/Time September 27, 2024 9:2 0am [facility] Medical Records Department [address] [place] [address] Pharmacokinetic/Renal -Consult 09/24/24 0947 MR#: [id number] Acct: [id number] Name: OSCAR WOO Rep #:[id number] : 1950 74 From: Tino Law PCP: Dr. Kamar Grimes MD Status:ADM IN Y Location: [place] [address] Consult Antibiotic Management Pharmacy has been consulted [...] Date Sixto Andrade MD CC: ~ Signed [facility] Work Phone: 1([phone]) [phone] Consult note [facility] Medical Records Department [address] [place] [address] Pharmacokinetic/Renal -Consult 09/24/24 0947 MR#: [id number] Acct: [id number] Name: OSCAR WOO Rep #:[id number] : 1950 74 From: Tino Law PCP: Dr. Kamar Grimes MD Status:ADM IN Location: [place] [address] Consult Antibiotic Management Pharmacy has been consulted [...] Date Sixto Andrade MD CC: ~ Signed [facility]03-23-2025 Consult note Author Renee Zarate [facility] Note Date/Time September 22, 2024 11: 33[facility] Medical Records Department [address] [place] [address] Pharmacokinetic/Renal -Consult 09/22/24 1047 MR#: [id number] Acct: [id number] Name: OSCAR WOO Rep #:[id number] : 1950 74 From: Renee Zarate PCP: Dr. Kamar Grimes MD Status:ADM IN Location: [place] [address] Consult Antibiotic Management Pharmacy has been consulted [...] as required. 09/22/24 1047 <Electronically signed by Renee Zarate > Date _ Renee Zarate 09/22/24 1133 <Electronically signed by Rodrigo Chi> Cosigner Signature (if applicable): Date Rodrigo Sanches MD CC: ~ Signed [facility] Work Phone: 1(472) 267-236003-23-2025 Consult note [facility] Medical Records Department [address] [place] [address] Pharmacokinetic/Renal -Consult 09/22/24 1047 MR#: [id number] Acct: [id number] Name: ABELOSCAR Dowling Rep #:[id number] : 1950 74 From: Renee Zarate PCP: Dr. Kamar Grimes MD Status:ADM IN Y Location: [place] [address] Consult Antibiotic Management Pharmacy has been consulted [...] Date Rodrigo Sanches MD CC: ~ Signed [facility]03-21-2025 Progress note Author Renee Zarate [facility] Note Date/Time September 20, 2024 1:4 3pm [facility] Medical Records Department [address] [place] [address] Progress Note - Pharmacy 09/19/24 1427 MR#: [id number] Acct: [id number] Name: OSCAR WOO Rep #:[id number] : 1950 74 From: Renee Zarate PCP: Dr. Kamar Grimes MD Status:ADM IN Location: [place] [address]- TCU RX Drug Regimen Review Subjective/Objective Subjective/Objective Subjective: 74 YOF admitted to TCU on 09/18/24 s/p hospitalization to [facility] for a left shoulder joint infection. The patient had surgical intervention to washout the infected joint while admitted. Admitted to TCU for IV antibiotics, strengthening and rehabilitation prior to discharge home where she currently resides alone. Objective: Allergies Penicillins Allergy (Verified 09/13/24 12:05) Anaphylaxis Current Medications Generic Name Dose Route Start Last Admin Trade Name Chanoq PRN Reason Stop Dose Admin Acetaminophen 1,000 [...] 600 Mg Tablet PO 600 mg QHS AKCEY Administration Vancomycin IV-PHARMACY TO DOSE 500 mls [...] Vancomycin Trough/Random Due [facility] 09/20/24 09:30 DAILY [facility] Problem List Infection of prosthetic shoulder joint [...] 1504 <Electronically signed by Renee Zarate> Renee Estradaer Signature (if applicable): CC: ~ Signed ADDENDUM by Renee Zarate on 09/20/24 at 1051 Addendum ADDING COSIGNER 09/20/24 1051 <Electronically signed by Renee Zarate > Date _ Renee Zarate 09/20/24 1342 <Electronically signed by Rodrigo Chi> Coskiper Signature (if applicable): Date cc: ~* Signed ADDENDUM by Dr. Rodrigo Sanches MD on 09/20/24 at 1342 Addendum Agree with recommendations. 09/20/24 1342 <Electronically signed by Rodrigo Chi> Date _ Rodrigo Sanches MD Cosigner Signature (if applicable): Date cc: ~* Signed [facility] Work Phone: 1(704) 917-875103-21-2025 Progress note Author Sixto [facility] Note Date/Time September 20, 2024 1:3 8pm [facility] Medical Records Department [address] [place] [address] Progress Note - Infect Disease 09/20/24 1336 MR#: [id number] Acct: [id number] Name: OSCAR WOO Rep #:[id number] : 1950 74 From: Sixto calhoun MD PCP: Dr. Kamar Grimes MD Status:ADM IN Location: [place] [address] Physical Exam Narrative Feeling better, shoulder improving, [...] course suppressive po abx. Will follow 09/20/24 7475 <Electronically signed by Sixto Andrade MD> Cosigner Signature (if applicable): CC: ~ Signed [facility] Work Phone: 1([phone]) 463-615503-21-2025 Consult note Author Jonh Khalil [facility] Note Date/Time September 20, 2024 1:2 6pm [facility] Medical Records Department [address] [place] [address] Pharmacokinetic/Renal -Consult 09/20/24 0902 MR#: [id number] Acct: [id number] Name: OSCAR WOO Rep #:[id number] : 1950 74 From: Jonh kurtz PCP: Dr. Kamar Grimes MD Status:ADM IN Location: [place] [address] Consult Antibiotic Management Pharmacy has been consulted [...] Date Rodrigo Sanches MD CC: ~ Signed [facility] Work Phone: 1([phone]) 463-163003-21-2025 Progress note [facility] Medical Records Department [address] [place] [address] Progress Note - Pharmacy 09/19/24 1427 MR#: [id number] Acct: [id number] Name: OSCAR WOO Rep #:[id number] : 1950 74 From: Renee Zarate PCP: Dr. Kamar Grimes MD Status:ADM IN Location: [facility] TCU RX Drug Regimen Review Subjective/Objective Subjective/Objective Subjective: 74 YOF admitted to TCU on 09/18/24 s/p hospitalization to [facility] for a left shoulder joint infection. [...] Vancomycin Trough/Random Due [facility] 09/20/24 09:30 DAILY [facility] Problem List Infection [...] Signature (if applicable): Date cc: ~* Signed [facility]03-21-2025 Progress note [facility] Medical Records Department [address] [place] [address] Progress Note - Infect Disease 09/20/24 1336 MR#: [id number] Acct: [id number] Name: OSCAR WOO Rep #:[id number] : 1950 74 From: Sixto calhoun MD PCP: Dr. Kamar Grimes MD Status:ADM [facility] Physical Exam Narrative Feeling better, shoulder improving, [...] Cosigner Signature (if applicable): CC: ~ Signed [facility]03-21-2025 Consult note [facility] Medical Records Department [address] [facility] [place] [address] Pharmacokinetic/Renal -Consult 09/20/24 0902 MR#: [id number] Acct: [id number] Name: OSCAR WOO Rep #:[id number] : 1950 74 From: Jonh kurtz PCP: Dr. Kamar Grimes MD Status:ADM IN Y Location: [place] [address] Consult Antibiotic Management Pharmacy has been consulted [...] result of 10.7 so will increase dose ii9063ms IV q24h. Will check another trough before the 3rd dose. Pharmacy Service will continue to monitor and adjust dosing as required. Follow-Up Labs Follow-Up Labs: Trough: Vancomycin Date/Time Labs Ordered Labs to be done on [date and time ordered]: 09/22/24 08:30 09/20/24 0905 erg> Date _ Jonh Khalil 09/20/24 1326 D> Natalieer Signature (if applicable): Date Rodrigo Sanches MD CC: ~ Signed [facility]03-20-2025 Progress note Author Sixto Andrade [facility] Note Date/Time September 19, 2024 7:5 9am [facility] Medical Records Department [address] [place] [address] Progress Note - Infect Disease 09/19/24 0757 MR#: [id number] Acct: [id number] Name: OSCAR WOO Rep #:[id number] : 1950 74 From: Sixto calhoun MD PCP: Dr. Kamar Grimes MD Status:ADM IN Location: [facility] TCU06-1 ID ID: Route of [...] Cosigner Signature (if applicable): CC: ~ Signed [facility] Work Phone: 1(754) 812-200403-20-2025 Progress note [facility] Medical Records Department [address] [place] [address] Progress Note - Infect Disease 09/19/24756 MR#: [id number] Acct: [id number] Name: OSCAR WOO Rep #:[id number] : 1950 74 From: Sixto calhoun MD PCP: Dr. Kamar Grimes MD Status:ADM IN Location: [facility] TCU06-1 ID ID: Route of nutrition/ use of supplements: [] Nutritional Intake: [] IV Site: [] Day Catheter: [] Assessment & Plan Assessment/Plan (1) Infection of prosthetic shoulder joint: PLAN: Aspiration cx with MRSA. Taken to OR 09/13/[address] Cavnaaugh for revision; surg cx x2 with MSSA. Picc in place. Plan is for iv vanc and po rifampin for 6 weeks with stop date 10/25/24 with weekly bmp, cbc, LFT, and ESR. After that, will need long course suppressive po abx. Will follow while at [facility], reviewed labs and chart. 09/19/24758 Cosigner Signature (if applicable): CC: ~ Signed [facility]03-19-2025 History and physical note Author Rodrigo Sanches [facility] Note Date/Time September 18, 2024 8:5 7pm [facility] Medical Records Department [address] [place] [address] History & Physical Exam 09/18/242035 MR#: [id number] Acct: [id number] Name: OSCAR WOO Rep #:[id number] : 1950 74 From: Rodrigo Sanches MD PCP: Dr. Kamar Grimes MD Status:ADM IN Location: [facility] HPI - General General Date of Admission: [...] prior to discharge home alone. 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 * Dry eyes [...] Grimes MD; Dr. Rodrigo Sanches MD~ Signed [facility] Work Phone: 1(922) 971-837103-19-2025 History and physical note [facility] Medical Records Department [address] [place] [address] History & Physical Exam 09/18/242035 MR#: [id number] Acct: [id number] Name: OSCAR WOO Rep #:[id number] : 1950 74 From: Rodrigo Sanches MD PCP: Dr. Kamar Grimes MD Status:ADM IN Location: [facility] [place] [address] HPI - General General Date of Admission: [...] prior to discharge home alone. [facility] Medical History MRSA (methicillin resistant staph [...] oral 80 mg (1.2 mL) PO TID [place] N Gas #0 mL 09/17/24 Unknown Rx [...] 30mg daily, Mirtazapine 15mg qhs, stable chronic fci use, GDR not recommended. * Dry eyes [...] Grimes MD; Dr. Rodrigo Sanches MD~ Signed [facility]03-19-2025 [facility]03-19-2025 [facility]03-19-2025 Consult note [facility] Medical Records Department [address] [place] [address] Counseling Note - Pharmacy 09/18/24 1009 MR#: [id number] Acct: [id number] Name: OSCAR WOO Rep #:[id number] : 1950 74 From: Ashley Sue PCP: Dr. Kamar Grimes MD Status:ADM IN Y Location: [place] [address] Pharmacy [place] Med Reconciliation Pharmacy Service has performed discharge [...] Signature (if applicable): Date CC: ~ Signed [facility]03-19-2025 Consult note Author Ashley Sue [facility] Note Date/Time September 18, 2024 12: 30pm [facility] [facility] Medical Records Department [address] [place] [address] Counseling Note - Pharmacy 09/18/24 1009 MR#: [id number] Acct: [id number] Name: OSCAR WOO Rep #:[id number] : 1950 74 From: Ashley Sue PCP: Dr. Kamar Grimes MD Status:ADM IN [place] [facility] VU520-8 [place] Med Reconciliation Pharmacy Service has performed discharge [...] Signature (if applicable): Date CC: ~ Signed [facility] Work Phone: 1(578) 144-442803-19-2025 Progress note Author Jamie Jiang [facility] Note Date/Time September 18, 2024 9:1 1am [facility] Medical Records Department [address] [place] [address] Progress Note - Hospitalist 09/18/24 0908 MR#: [id number] Acct: [id number] Name: OSCAR WOO Rep #:[id number] : 1950 74 From: Jamie Jiang DO PCP: Dr. Kamar Grimes MD Status:ADM IN Location: MS3 TD604-5 Reason for Visit Reason for Visit: Diagnoses [...] 50 minutes Charges/Coding Visit Charges Inpatient E&M: 14481 Subs Hosp L3 09/18/24 0911 <Electronically signed by Jamie Jiang DO> Cosigner Signature (if applicable): CC: ~ Signed [facility] Work Phone: 1(418) 728-613103-19-2025 Progress note Author Zhanna Ivy [facility] Note Date/Time September 18, 2024 7:5 5am [facility] Medical Records Department [address] [place] [address] Progress Note - Orthopedic 09/18/24 0748 MR#: [id number] Acct: [id number] Name: OSCAR WOO Rep #:[id number] : 1950 74 From: Zhanna CASTILLO PCP: Dr. Kamar Grimes MD Status:ADM IN Location: [facility]3 XQ124-4 Subjective Subjective Patient was lying comfortably in bed. Patient was very excited that she got accepted to [facility] and patient was eager to get [...] will be going to the TCU at [facility]. Patient received acceptance yesterday but a [...] other internal joint prosthesis, initial encounter: 09/18/24 5549 <Electronically signed by Zhanna CASTILLO> Yanick Signature (if applicable): CC: ~ Signed [facility] Work Phone: [phone] 227-560003-19-2025 Consult note Author Tete Kaminski [facility] Note Date/Time September 18, 2024 7:4 7am [facility] Medical Records Department [address] [place] [address] Pharmacokinetic/Renal -Consult 09/18/24 0744 MR#: [id number] Acct: [id number] Name: OSCAR WOO Rep #:[id number] : 1950 74 From: Tete Loving PCP: Dr. Kamar Grimes MD Status:ADM IN Location: [place] [address] Consult Antibiotic Management Pharmacy has been consulted [...] and time ordered]: 09/20/24 @ 0700 09/18/24 9356 <Electronically signed by Tete Kaminski> Date _ Tete Kaminski Cosigner Signature (if applicable): Date CC: ~ Signed [facility] Work Phone: [phone]) 169-543803-19-2025 Progress note [facility] Medical Records Department [address] [place] [address] Progress Note - Hospitalist 09/18/24 0908 MR#: [id number] Acct: [id number] Name: OSCAR WOO Rep #:[id number] : 1950 74 From: Jamie Jiang DO PCP: Dr. Kamar Grimes MD Status:ADM IN Location: [place] [address] Reason for Visit Reason for Visit: Diagnoses [...] 50 minutes Charges/Coding Visit Charges Inpatient E&M: 39247 [facility] Hosp L3 09/18/24 0911 Cosigner Signature (if applicable): CC: ~ Signed [facility]03-19-2025 Progress note [facility] Medical Records Department [address] [place] [address] Progress Note - Orthopedic 09/18/24 0748 MR#: [id number] Acct: [id number] Name: OSCAR WOO Rep #:[id number] : 1950 74 From: Zhanna CASTILLO PCP: Dr. Kamar Grimes MD Status:ADM IN Location: [facility] GT024-8 Subjective Subjective Patient was lying comfortably in bed. Patient was very excited that she got accepted to [facility] and patient was eager to get [...] will be going to the TCU at [facility]. Patient received acceptance yesterday but a bed was not available until today 09/18/2024. Appreciate recommendations from medicine and case management for safe discharge planning. Patient will follow-up per postoperative instructions. Reverse total shoulder protocol was reviewed with patient today. Patient has a 2-week follow-up at our office. Patient will begin outpatient physical therapy following her 2-week visit at [facility]. Patient was encouraged to call with any questions, concerns, new problems. (2) Infection and inflammatory reaction due to other internal joint prosthesis, initial encounter: 09/18/24 4473 Cosigner Signature (if applicable): CC: ~ Signed [facility]03-19-2025 Consult note [facility] Medical Records Department [address] [place] [address] Pharmacokinetic/Renal -Consult 09/18/24 0744 MR#: [id number] Acct: [id number] Name: OSCAR WOO Rep #:[id number] : 1950 74 From: Tete Loving PCP: Dr. Kamar Grimes MD Status:ADM IN Location: [facility] VI673-6 Consult Antibiotic Management Pharmacy has been consulted [...] Signature (if applicable): Date CC: ~ Signed [facility]03-18-2025 Discharge summary Author Jamie Jiang [facility] Note Date/Time September 17, 2024 5:2 7pm [facility] Medical Records Department [address] [place] [address] Transfer to [facility] MR#: [id number] Acct: [id number] Name: OSCAR WOO Rep #:[id number] : 1950 74 From: Jamie Jiang DO PCP: Dr. Kamar Grimes MD Status:ADM IN Certification of patient admission REQUIRED AT TIME OF ADMISSION. I CERTIFY THAT POST-HOSPITAL ECF SERVICES ARE REQUIRED TO BE GIVEN ON AN IN-PATIENT BASIS BECAUSE OF THE ABOVE NAMED PATIENT'S NEED FOR SKILLED NURSING CARE ON A CONTINUING BASIS FOR THE [...] cbc, vanc trough, and esr. Fax to [phone]. Routine picc care per protocol. rifampin 300 [...] Lee MD; Dr. Sixto Andrade MD ~ [facility] Work Phone: [phone] 381-342903-18-2025 Progress note Author Jamie Jiang [facility] Note Date/Time September 17, 2024 5:1 3pm [facility] Medical Records Department [address] [place] [address] Progress Note - Hospitalist 09/17/24 1709 MR#: [id number] Acct: [id number] Name: OSCAR WOO Rep #:[id number] : 1950 74 From: Jamie Jiang DO PCP: Dr. Kamar Grimes MD Status:ADM IN Location: [facility] YZ097-1 Reason for Visit Reason for Visit: Diagnoses [...] a bed available for her in [facility] care tomorrow. Patient had some [...] 35 minutes Charges/Coding Visit Charges Inpatient E&M: 34781 Subs Hosp L2 09/17/24 1713 <Electronically signed by Jamie Jiang DO> Cosigner Signature (if applicable): CC: ~ Signed [facility] Work Phone: 1([phone] 444-388703-18-2025 Discharge summary [facility] Medical Records Department [address] [place] [address] Transfer to [facility] MR#: [id number] Acct: [id number] Name: OSCAR WOO Rep #:[id number] : 1950 74 From: Jamie Jiang DO PCP: Dr. Kamar Grimes MD Status:ADM IN Certification of patient admission REQUIRED AT TIME OF ADMISSION. I CERTIFY THAT POST-HOSPITAL ECF SERVICES ARE REQUIRED TO BE GIVEN ON AN IN-PATIENT BASIS BECAUSE OF THE ABOVE NAMED PATIENT'S NEED FOR SKILLED NURSING CARE ON A CONTINUING BASIS FOR THE [...] cbc, vanc trough, and esr. Fax to [phone]. Routine picc care per protocol. rifampin 300 [...] Lee MD; Dr. Sixto Andrade MD ~ [facility]03-18-2025 Progress note [facility] Medical Records Department [address] [place] [address] Progress Note - Hospitalist 09/17/24 1709 MR#: [id number] Acct: [id number] Name: OSCAR WOO Rep #:[id number] : 1950 74 From: Jamie Jiang DO PCP: Dr. Kamar Grimes MD Status:ADM IN Location: [place] 665393-1 Reason for Visit Reason for Visit: Diagnoses [...] a bed available for her in [facility] care tomorrow. Patient had some [...] 35 minutes Charges/Coding Visit Charges Inpatient E&M: 58250 Subs Hosp L2 09/17/24 1713 Cosigner Signature (if applicable): CC: ~ Signed [facility]03-18-2025 Progress note Author Zhanna Ivy [facility] Note Date/Time September 17, 2024 1:0 2pm [facility] Medical Records Department [address] [place] [address] Progress Note - Orthopedic 09/17/24 1242 MR#: [id number] Acct: [id number] Name: OSCAR WOO Rep #:[id number] : 1950 74 From: Zhanna CASTILLO PCP: Dr. Kamar Grimes MD Status:ADM IN Location: [facility] IP106-9 Subjective Subjective Patient appears to be comfortable [...] Andrade. 09/17/24 1301<Electronically signed by Zhanna CASTILLO> Natalieer Signature (if applicable): cc: ~* Signed [facility] Work Phone: [phone] 496-805603-18-2025 Progress note [facility] Medical Records Department [address] [place] [address] Progress Note - Orthopedic 09/17/24 1242 MR#: [id number] Acct: [id number] Name: OSCAR WOO Rep #:[id number] : 1950 74 From: Zhanna CASTILLO PCP: Dr. Kamar Grimes MD Status:ADM IN Location: [facility] DJ348-4 Subjective Subjective Patient appears to be comfortable [...] Cosigner Signature (if applicable): cc: ~* Signed [facility]03-18-2025 Progress note Author Sixto Andrade [facility] Note Date/Time September 17, 2024 10: 04am [facility] Medical Records Department [address] [facility] [place] [address] Progress Note - Infect Disease 09/17/24 1003 MR#: [id number] Acct: [id number] Name: OSCAR WOO Rep #:[id number] : 1950 74 From: Sixto calhoun MD PCP: Dr. Kamar Grimes MD Status:ADM IN Location: [facility]3 DX088-5 Physical Exam Narrative Feeling ok. One episode [...] diarrhea chronically, cdiff sent. Will follow, d/w caser up 09/17/24 1004 <Electronically signed by Sixto Andrade MD> Cosigner Signature (if applicable): CC: ~ Signed [facility] Work Phone: 1(248) 616-974603-18-2025 Progress note [facility] Medical Records Department [address] [place] [address] Progress Note - Infect Disease 09/17/24 1003 MR#: [id number] Acct: [id number] Name: OSCAR WOO Rep #:[id number] : 1950 74 From: Sixto calhoun MD PCP: Dr. Kamar Grimes MD Status:ADM IN Location: [facility] ZK453-5 Physical Exam Narrative Feeling ok. One episode [...] diarrhea chronically, cdiff sent. Will follow, d/w caser up 09/17/24 1004 Cosigner Signature (if applicable): CC: ~ Signed [facility]03-17-2025 Progress note Author [facility] Note Date/Time September 16, 2024 9:5 7pm [facility] Medical Records Department [address] [facility] [place] [address] Progress Note - Hospitalist 09/16/242156 MR#: [id number] Acct: [id number] Name: OSCAR WOO Rep #:[id number] : 1950 74 From: Claire Mayorga MD PCP: Dr. Kamar Grimes MD Status:ADM IN Location: [place] [address] Hospitalist Note Patient with onset diarrhea, several episodes per staff. On abx therapy for several days with ID following. Suspect likely abx related but to be cautious will obtain cdiff and if negative will have loperamide PRN. 09/16/242156 <Electronically signed by Claire Mayorga MD> Cosigner Signature (if applicable): CC: ~ Signed [facility] Work Phone: [phone] Progress note [facility] Medical Records Department [address] [place] [address] Progress Note - Hospitalist 09/16/242156 MR#: [id number] Acct: [id number] Name: OSCAR WOO Rep #:[id number] : 1950 74 From: Claire Mayorga MD PCP: Dr. Kamar Grimes MD Status:ADM IN Location: [place] [address] Hospitalist Note Patient with onset diarrhea, several episodes per staff. On abx therapy for several days with ID following. Suspect likely abx related but to be cautious will obtain cdiff and if negative will have loperamide PRN. 09/16/242156 Cosigner Signature (if applicable): CC: ~ Signed [facility]03-17-2025 Progress note Author [facility] Note Date/Time September 16, 2024 4:[address] [place] [address] System Medical Records Department [address] [place] [address] Progress Note - Hospitalist 09/16/24 160 MR#: [id number] Acct: [id number] Name: OSCAR WOO Rep #:[id number] : 1950 74 From: Jamie Jiang DO PCP: Dr. Kamar Grimes MD Status:ADM IN Location: [place] [address] Reason for Visit Reason for Visit: Diagnoses [...] Intake Total 3834.17 / 3834.17 1411. / 1411.25 2099 / 2099 Balance 3834.17 [...] 76.9 H, Lymph % (Auto) 11.6 L, [place] % (Auto) 7.0, Eos % (Auto) 3.2, [...] 35 minutes Charges/Coding Visit Charges Inpatient E&M: 32279 Subs Hosp L2 09/16/24 1611 <Electronically signed by Jamie Jiang DO> Cosigner Signature (if applicable): CC: ~ Signed [facility] Work Phone: [phone] Consult note Author Sixto Pardoninger [facility] Note Date/Time September 16, 2024 2:5 1pm [facility] Medical Records Department [address] [place] [address] Consultation - Infectious Dx 09/16/24 1444 MR#: [id number] Acct: [id number] Name: OSCAR WOO Rep #:[id number] : 1950 74 From: Sixto calhoun MD PCP: Dr. Kamar Grimes MD Status:ADM IN Location: [facility] QK283-6 Assessment & Plan Assessment/Plan (1) Infection and [...] rx, d/w Dr. Cavanaugh on 09/13/24, d/w caser up this AM HPI Consult Data Date of [...] neg except as noted above. [facility] Medical History MRSA (methicillin resistant staph [...] 76.9 H, Lymph % (Auto) 11.6 L, [place] % (Auto) 7.0, Eos % (Auto) 3.2, [...] Preliminary No growth in 48 hours. 09/16/24 1459 <Electronically signed by Sixto Andrade MD> Cosigner Signature (if applicable): CC: Dr. Kamar Grimes MD; Dr. Fahad Cavanaugh MD~ Signed [facility] Work Phone: [phone]) 488-781403-17-2025 Progress note [facility] Medical Records Department [address] [place] [address] Progress Note - Hospitalist 09/16/24 5007 MR#: [id number] Acct: [id number] Name: OSCAR WOO Rep #:[id number] : 1950 74 From: Jamie Jiang DO PCP: Dr. Kamar Grimes MD Status:ADM IN Location: [facility] RP796-5 Reason for Visit Reason for Visit: Diagnoses [...] 76.9 H, Lymph % (Auto) 11.6 L, [place] % (Auto) 7.0, Eos % (Auto) 3.2, [...] 35 minutes Charges/Coding Visit Charges Inpatient E&M: 58209 Subs Hosp L2 09/16/24 1611 Cosigner Signature (if applicable): CC: ~ Signed [facility]03-17-2025 Progress note Author Fahad Cavanaugh [facility] Note Date/Time September 16, 2024 2:0 5pm [facility] Medical Records Department [address] [place] [address] Progress Note - Orthopedic 09/16/24 1357 MR#: [id number] Acct: [id number] Name: OCSAR WOO Rep #:[id number] : 1950 74 From: Fahad Chi PCP: Dr. Kamar Grimes MD Status:ADM IN Location: [facility] IY898-2 Subjective Subjective Patient doing well. Denies any [...] Intake Total 3834.17 / 3834.17 1411. / 141.2099 Balance 3834.17 / 3834.17 141. / 2099 Lab / Micro Data Attestation: [...] 76.9 H, Lymph % (Auto) 11.6 L, [place] % (Auto) 7.0, Eos % (Auto) 3.2, [...] [facility] Office: 09/16/24 1405 <Electronically signed by Fahad Cavanaugh MD> Cosigner Signature (if applicable): CC: ~ Signed [facility] Work Phone: [phone] 549-782303-17-2025 Consult note [facility] Medical Records Department [address] [place] [address] Consultation - Infectious Dx 09/16/24 1444 MR#: [id number] Acct: [id number] Name: OSCAR WOO Rep #:[id number] : 1950 74 From: Sixto calhoun MD PCP: Dr. Kamar Grimes MD Status:ADM IN Location: [facility] QW567-9 Assessment & Plan Assessment/Plan (1) Infection and [...] rx, d/w Dr. Cavanaugh on 09/13/24, d/w caser up this AM HPI Consult Data Date of [...] neg except as noted above. [facility] Medical History MRSA (methicillin resistant staph [...] 76.9 H, Lymph % (Auto) 11.6 L, [place] % (Auto) 7.0, Eos % (Auto) 3.2, [...] Grimes MD; Dr. Fahad Cavanaugh MD~ Signed [facility]03-17-2025 Progress note [facility] Medical Records Department [address] [place] [address] Progress Note - Orthopedic 09/16/24 1357 MR#: [id number] Acct: [id number] Name: OSCAR WOO Rep #:[id number] : 1950 74 From: Fahad Chi PCP: Dr. Kamar Grimes MD Status:ADM [facility] Subjective Patient doing well. Denies any [...] 2099 / 2099 Balance 3834.17 / 3834.17 1411. / 141.2099 / 2099 Lab / Micro Data Attestation: [...] 76.9 H, Lymph % (Auto) 11.6 L, [place] % (Auto) 7.0, Eos % (Auto) 3.2, [...] obtain pre-CERT. Patient demonstrates an understanding. [facility] Office: 09/16/24 1405 Cosigner Signature (if applicable): CC: ~ Signed [facility]03-17-2025 Consult note Author Tino Law [facility] Note Date/Time September 16, 2024 7:0 3am [facility] Medical Records Department [address] [place] [address] Pharmacokinetic/Renal -Consult 09/15/24 1424 MR#: [id number] Acct: [id number] Name: OSCAR WOO Rep #:[id number] : 1950 74 From: Tino Law PCP: Dr. Kamar Grimes MD Status:ADM IN Location: [place] [address] Consult Antibiotic Management Pharmacy has been consulted [...] Date Fahad Cavanaugh MD CC: ~ Signed [facility] Work Phone: 1(293) 402-743103-17-2025 Consult note Author Tino Law [facility] Note Date/Time September 16, 2024 7:0 3am [facility] Medical Records Department [address] [place] [address] Pharmacokinetic/Renal -Consult 09/16/24 0658 MR#: [id number] Acct: [id number] Name: OSCAR WOO Rep #:[id number] : 1950 74 From: Tino Law PCP: Dr. Kamar Grimes MD Status:ADM IN Location: [place] [address] Consult Antibiotic Management Pharmacy has been consulted [...] Date Fahad Cavanaugh MD CC: ~ Signed [facility] Work Phone: 1(898) 441-345903-17-2025 Consult note [facility] Medical Records Department [address] [place] [address] Pharmacokinetic/Renal -Consult 09/15/24 1424 MR#: [id number] Acct: [id number] Name: OSCAR WOO Rep #:[id number] : 1950 74 From: Tino Law PCP: Dr. Kamar Grimes MD Status:ADM IN Y Location: [address] Consult Antibiotic Management Pharmacy has been consulted [...] Date Fahad Cavanaugh MD CC: ~ Signed [facility]03-17-2025 Consult note [facility] Medical Records Department [address] [place] [address] Pharmacokinetic/Renal -Consult 09/16/24 0658 MR#: [id number] Acct: [id number] Name: OSCAR WOO Rep #:[id number] : 1950 74 From: Tino Law PCP: Dr. Kamar Grimes, MD Status:ADM IN Y Location: [facility]3 AS455-3 Consult Antibiotic Management Pharmacy has been consulted [...] Date Fahad Cavanaugh MD CC: ~ Signed [facility]03-16-2025 Progress note Author Emili Lee [facility] Note Date/Time September 15, 2024 11: 30am [facility] Medical Records Department [address] [place] [address] Progress Note - Hospitalist 09/15/24 0804 MR#: [id number] Acct: [id number] Name: OSCAR WOO Rep #:[id number] : 1950 74 From: Emili Lee MD PCP: Dr. Kamar Grimes MD Status:ADM IN Location: [facility] AO789-3 Reason for Visit Reason for Visit: Diagnoses [...] 36 Minutes Charges/Coding Visit Charges Inpatient E&M: 90747 Subs Hosp L2 09/15/24 1130 <Electronically signed by Emili Lee MD> Cosigner Signature (if applicable): CC: ~ Signed [facility] Work Phone: 1([phone]) 383-457103-16-2025 Progress note [facility] Medical Records Department [address] [place] [address] Progress Note - Hospitalist 09/15/24 0804 MR#: [id number] Acct: [id number] Name: OSCAR WOO Nitesh Rep #:[id number] : 1950 74 From: Emili Lee MD PCP: Dr. Kamar Grimes MD Status:ADM IN Location: [facility] JF238-0 Reason for Visit Reason for Visit: Diagnoses [...] 36 Minutes Charges/Coding Visit Charges Inpatient E&M: 83336 Subs Hosp L2 09/15/24 1130 Cosigner Signature (if applicable): CC: ~ Signed [facility]03-16-2025 Progress note Author Fahad Cavanaugh [facility] Note Date/Time September 15, 2024 8:1 9am [facility] Medical Records Department [address] [place] [address] Progress Note - Orthopedic 09/15/24810 MR#: [id number] Acct: [id number] Name: OSCAR WOO Rep #:[id number] : 1950 74 From: Fahad Chi PCP: Dr. Kamar Grimes MD Status:ADM IN Location: [facility] BR491-6 Subjective Subjective Patient doing well overall. No [...] PICC line and home antibiotic regimen. [facility] Office: 09/15/2439 <Electronically signed by Fahad Cavanaugh MD> Cosigner Signature (if applicable): CC: ~ Signed [facility] Work Phone: [phone] 156-691503-16-2025 Radiology Diagnostic study note [facility] Imaging Services [address] [facility] [address] [address] [place], [place] [id number] Chest PA and Lateral MR#: [id number] Acct: [id number] Name: OSCAR WOO Rep #: [id number] : 1950 F 74 From: Abdulkadir Goodman DO PCP: Dr. Kamar Grimes MD Status: ADM IN Study:Chest PA and Lateral Date of Exam: 09/15/24 Exam# [id number] Ordering Dr: Wenceslao Lee MD PROCEDURE: Chest [...] Grimes MD; Dr. Emili Lee MD ~ Hand Twister: Signed [facility]03-16-2025 Progress note [facility] Medical Records Department [address] [place] [address] Progress Note - Orthopedic 09/15/24 0811 MR#: [id number] Acct: [id number] Name: OSCAR WOO Rep #:[id number] : 1950 74 From: Fahad Chi PCP: Dr. Kamar Grimes MD Status:ADM IN [facility] Subjective Subjective Patient doing well overall. No [...] PICC line and home antibiotic regimen. [facility] Office: 09/15/24 0819 Cosigner Signature (if applicable): CC: ~ Signed [facility]03-15-2025 Evaluation note* Diagnosis Onset Date Resolution Status [...] 12:40pm Hypertension chronic September 14, 2024 12:40pm [facility] Work Phone: 1(840) 996-455403-15-2025 Evaluation note* Diagnosis Onset Date Resolution Status [...] 18 12:40pm Insomnia inactive September 18 12:40pm [facility] Work Phone: 1(199) 903-309203-15-2025 Progress note Author Emili Lee [facility] Note Date/Time September 14, 2024 12: 34pm [facility] Medical Records Department [address] [place] [address] Progress Note - Hospitalist 09/14/24 0752 MR#: [id number] Acct: [id number] Name: OSCAR WOO Rep #:[id number] : 1950 74 From: Emili Lee MD PCP: Dr. Kamar Grimes MD Status:ADM NATE Location: [place] [address] Reason for Visit Reason for Visit: Diagnoses [...] 09/13/24 17:00 IMPRESSION: See above Reading Location: [facility] Physical Exam Narrative General: Alert, oriented, no [...] 35 Minutes Charges/Coding Visit Charges Inpatient E&M: 57581 Subs Hosp L2 09/14/24 1234 <Electronically signed by Emili Lee MD> Cosigner Signature (if applicable): CC: ~ Signed [facility] Work Phone: 1(422) 255-236303-15-2025 Progress note [facility] Medical Records Department [address] [place] [address] Progress Note - Hospitalist 09/14/24 1611 MR#: [id number] Acct: [id number] Name: OSCAR WOO Rep #:[id number] : 1950 74 From: Emili Lee MD PCP: Dr. Kamar Grimes MD Status:ADM NATE Location: [place]3 IJ626-7 Reason for Visit Reason for Visit: Diagnoses [...] 09/13/24 17:00 IMPRESSION: See above Reading Location: [facility] Physical Exam Narrative General: Alert, oriented, no [...] 35 Minutes Charges/Coding Visit Charges Inpatient E&M: 95221 Subs Hosp L2 09/14/24 1234 Cosigner Signature (if applicable): CC: ~ Signed [facility] [facility]2025 Progress note Author Fahad Cavanaugh [facility] Note Date/Time September 14, 2024 8:4 8am [facility] Medical Records Department [address] [place] [address] Progress Note - Orthopedic 09/14/24 0831 MR#: [id number] Acct: [id number] Name: OSCAR WOO Rep #:[id number] : 1950 74 From: Fahad Chi PCP: Dr. Kamar Grimes MD Status:ADM NATE Location: [place] [address] Subjective Subjective Patient is doing well overall. [...] 09/13/24 17:00 IMPRESSION: See above Reading Location: [facility] Physical Exam Narrative Left upper extremity: Dressing [...] PICC line and home antibiotic regimen. [facility] Office: 09/14/24 0848 <Electronically signed by Fahad Cavanaugh MD> Cosigner Signature (if applicable): CC: ~ Signed [facility] Work Phone: 1(945) 246-426403-15-2025 Progress note Author Abdirashid Carrasquillo [facility] Note Date/Time September 14, 2024 6:5 7am [facility] Medical Records Department [address] [place] [address] Progress Note - Hospitalist 09/13/241957 MR#: [id number] Acct: [id number] Name: OSCAR WOO Rep #:[id number] : 1950 74 From: Abdirashid Lloyd DO PCP: Dr. Kamar Grimes MD Status:ADM NATE Location: [place] [address] Reason for Visit Reason for Visit: Diagnoses [...] 09/13/24 17:00 IMPRESSION: See above Reading Location: [facility] Physical Exam Const alert, oriented x3 and [...] Cosigner Signature (if applicable): CC: ~ Signed [facility] Work Phone: [phone]) 633-762903-15-2025 Progress note [facility] Medical Records Department [address] [place] [address] Progress Note - Orthopedic 09/14/24 0831 MR#: [id number] Acct: [id number] Name: OSCAR WOO Rep #:[id number] : 1950 74 From: Fahad Chi PCP: Dr. Kamar Grimes MD Status:ADM NATE [id number] Subjective Subjective Patient is doing well overall. [...] [facility] Office: 09/14/24 8524 Cosigner Signature (if applicable): CC: ~ Signed [facility]03-15-2025 Procedure note [facility] Medical Records Department [address] [place] [address] Operative Report 09/13/24 1620 MR#: [id number] Acct: [id number] Name: OSCAR WOO Rep #:[id number] : 1950 74 From: Fahad Chi PCP: Dr. 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 Their intimate [...] Hose VTE Pharm Prophylaxis ordered?: Yes 09/14/24 0875 Cosigner Signature (if applicable): CC: Dr. Kamar Grimes MD; Dr. Emili Lee MD; Dr. Fahad Cavanaugh MD~ Signed [facility]03-15-2025 Progress note [facility] Medical Records Department [address] [place] [address] Progress Note - Hospitalist 09/13/241957 MR#: [id number] Acct: [id number] Name: OSCAR WOO Rep #:[id number] : 1950 74 From: Abdirashid Lloyd DO PCP: Dr. Kamar Grimes MD Status:ADM NATE Location: [place] [address] Reason for Visit Reason for Visit: Diagnoses [...] 09/13/24 17:00 IMPRESSION: See above Reading Location: [facility] Physical Exam Const alert, oriented x3 and [...] Cosigner Signature (if applicable): CC: ~ Signed [facility]03-14-2025 Consult note Author Mercedes Patel [facility] Note Date/Time September 13, 2024 7:4 1pm [facility] Medical Records Department [address] [place] [address] Pharmacokinetic/Renal -Consult 09/13/241932 MR#: [id number] Acct: [id number] Name: OSCAR WOO Rep #:[id number] : 1950 74 From: Mercedes Patel PCP: Dr. Kamar Grimes MD Status:ADM NATE Y Location: [place] [address] Consult Antibiotic Management Pharmacy has been consulted [...] Signature (if applicable): Date CC: ~ Signed [facility] Work Phone: 1(315) 746-347403-14-2025 Consult note Author Omar Walters [facility] Note Date/Time September 13, 2024 7:1 0pm [facility] Medical Records Department [address] [place] [address] Anesthesia Postop Eval II 09/13/241909 MR#: [id number] Acct: [id number] Name: OSCAR WOO Rep #:[id number] : 1950 74 From: Omar Walters MD PCP: Dr. Kamar Grimes MD Status:ADM NATE Y Race: C Location: [place] [address] 1 Anesthesia Postop Eval I Sum Postop Eval Completion status Anesthesia document: Postop Eval 1 completed: Yes Anesthesia Postop Eval I Summary Anesthesia Postop Eval I Summary: Anesthesia Postop Eval I: Assessment Summary Airway patent Yes 09/13/24 17:12 ADULT DAYCARE COORDINATOR.TNES Spontaneous unlabored Yes 09/13/24 17:12 ADULT DAYCARE COORDINATOR.TNES respirations Mental status Calm 09/13/24 17:12 ADULT DAYCARE COORDINATOR.TNES nausea No 09/13/24 17:12 ADULT DAYCARE COORDINATOR.TNES Vomiting No 09/13/24 17:12 ADULT DAYCARE COORDINATOR.TNES Anesthesia Postop Eval I: Fluid Summary Crystalloid volume administer 2,000 09/13/24 17:12 ADULT DAYCARE COORDINATOR.TNES (ml) Colloids volume administered ( ml) Blood Product volume administered (ml) Total IV fluid infused 2,000 09/13/24 17:12 ADULT DAYCARE COORDINATOR.TNES Anesthesia Postop Eval I: Summary Notes Anesthesia Complication No 09/13/24 17:12 ADULT DAYCARE COORDINATOR.TNES Anesthesia Complication Comment: Post-operative progress note Anesthesia: Postop Eval II Evaluation Mental status: Awake Pain Level: 1 nausea: No Vomiting: No 09/13/241909 <Electronically signed by Omar Walters MD > Date _ Omar Walters MD Cosigner Signature: Date CC: ~ Signed [facility] Work Phone: 1([phone]) 417-510403-14-2025 Consult note [facility] Medical Records Department [address] [place] [address] Pharmacokinetic/Renal -Consult 09/13/241932 MR#: [id number] Acct: [id number] Name: OSCAR WOO Rep #:[id number] : 1950 74 From: Mercedes Patel PCP: Dr. Kamar Grimes MD Status:ADM NATE Y Location: [place] [address] Consult Antibiotic Management Pharmacy has been consulted [...] Signature (if applicable): Date CC: ~ Signed [facility]03-14-2025 Consult note Author Doug Urias [facility] Note Date/Time September 13, 2024 5:1 2pm [facility] Medical Records Department [address] [place] [address] Anesthesia Postop Eval I 09/13/241710 MR#: [id number] Acct: [id number] Name: OSCAR WOO Rep #:[id number] : 1950 74 From: Doug DEVINE PCP: Dr. Kamar Grimes MD Status:ADM NATE Y Race: C Location: [place] [address] Anesthesia: Postop Eval I Current Vital Signs [...] CRNA Cosigner Signature: Date CC: ~ Signed [facility] Work Phone: 1([phone]) 114-804603-14-2025 Consult note [facility] Medical Records Department [address] [place] [address] Anesthesia Postop Eval II 09/13/24 191 MR#: [id number] Acct: [id number] Name: OSCAR WOO Rep #:[id number] : 1950 74 From: Omar Walters MD PCP: Dr. Kamar Grimes MD Status:ADM NATE Y Race: C Location: [place] [address] -1 Anesthesia Postop Eval I Sum Postop Eval Completion status Anesthesia document: Postop Eval 1 completed: Yes Anesthesia Postop Eval I Summary Anesthesia Postop Eval I Summary: Anesthesia Postop Eval I: Assessment Summary Airway patent Yes 09/13/24 17:12 ADULT DAYCARE COORDINATOR.TNES Spontaneous unlabored Yes 09/13/24 17:12 ADULT DAYCARE COORDINATOR.TNES respirations Mental status Calm 09/13/24 17:12 ADULT DAYCARE COORDINATOR.TNES nausea No 09/13/24 17:12 ADULT DAYCARE COORDINATOR.TNES Vomiting No 09/13/24 17:12 ADULT DAYCARE COORDINATOR.TNES Anesthesia Postop Eval I: Fluid Summary Crystalloid volume administer 2,000 09/13/24 17:12 ADULT DAYCARE COORDINATOR.TNES (ml) Colloids volume administered ( ml) Blood Product volume administered (ml) Total IV fluid infused 2,000 09/13/24 17:12 ADULT DAYCARE COORDINATOR.TNES Anesthesia Postop Eval I: Summary Notes Anesthesia Complication No 09/13/24 17:12 ADULT DAYCARE COORDINATOR.TNES Anesthesia Complication Comment: Post-operative progress note Anesthesia: Postop Eval II Evaluation Mental status: Awake Pain Level: 1 nausea: No Vomiting: No 09/13/24 1910 > Date _ Omar Luqueigner Signature: Date CC: ~ Signed [facility]03-14-2025 Radiology Diagnostic study note [facility] Imaging Services [address] [place] [address] Shoulder min 2 Views MR#: [id number] Acct: [id number] Name: OSCAR WOO Rep #: [id number] : 1950 F 74 From: Yen Donaldson MD PCP: Dr. Kamar Grimes MD Status: ADM NATE Study:Shoulder min 2 Views Date of Exam: 09/13/24 Exam# [id number] Ordering Dr: Celine Cavanaugh MD PROCEDURE: SHOULDER [...] Grimes MD; Dr. Fahad Cavanaugh MD ~ Hand Twister: Signed [facility]03-14-2025 Consult note [facility] Medical Records Department [address] [place] [address] Anesthesia Postop Eval I 09/13/24 1711 MR#: [id number] Acct: [id number] Name: OSCAR WOO Rep #:[id number] : 1950 74 From: Doug DEVINE PCP: Dr. Kamar Grimes MD Status:ADM NATE Y Race: C Location: [place] [address] Anesthesia: Postop Eval I Current Vital Signs [...] Postop Eval 1 completed: Yes 09/13/24 171 ADULT DAYCARE COORDINATOR> Date _ Doug [place] ADULT DAYCARE COORDINATOR Cosigner Signature: Date CC: ~ Signed [facility]03-14-2025 Consult note Author Omar gracy [facility] Note Date/Time September 13, 2024 12: 05pm [facility] Medical Records Department [address] [place] [address] Pre-Anesthesia Evaluation 09/13/24 1204 MR#: [id number] Acct: [id number] Name: OSCAR WOO Rep #:[id number] : 1950 74 From: Omar Walters MD PCP: Dr. Kamar Grimes MD Status:ADM IN Y Race: C Location: [place] [address] ASA Classification* ASA Classification ASA Classification: 2 [...] LEFT SHOULDER Anesthesia History Anesthesia History - supervisor counseling and guidance: Anesthesia History - supervisor counseling and guidance Hx Hospitalization No 09/11/24 15:02 Any Problems [...] take am of surgery PONV PONV - supervisor counseling and guidance: PONV - supervisor counseling and guidance Female Yes 09/11/24 15:02 HX of Motion [...] 05/05/22 15:52 Respiratory Assessment Respiratory Assessment - supervisor counseling and guidance: Respiratory Tract Infection Hx - supervisor counseling and guidance Hx Respiratory Tract Infection No 09/11/24 15:02 STOP Sleep Apnea STOP Sleep Apnea - supervisor counseling and guidance: STOP Sleep Apnea - supervisor counseling and guidance Hx Hypertension Yes: CONTROLLED WITH MED 09/11/24 [...] Tobacco Use History Tobacco Use History - supervisor counseling and guidance: Tobacco Use History - supervisor counseling and guidance Tobacco Use Smoking Status Former smoker 09/11/24 15:02 Hx Tobacco Use No 09/11/24 15:02 Years Smoking Packs Smoked per Day Smoking Cessation Date was No - quit smoking greater 09/11/24 15:02 within the last 15 years than 15 years ago Hx Smoking Cessation Date Hx Smoking Cessation No 09/11/24 15:02 Counseling Hematologic Medial History Hematologic Hx - supervisor counseling and guidance: 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 Hx of Blood Transfusion Yes 09/11/24 15:02 [...] confused, unrespo /Reproduction History /Reproductive History - supervisor counseling and guidance: /Reproductive Hx- supervisor counseling and guidance Hx Now No 09/11/24 15:02 Gestational Age [...] MD > Date _ Omar Walters [facility] Signature: Date CC: ~ Signed [facility] Work Phone: 1([phone]) 410-970303-14-2025 Consult note [facility] Medical Records Department [address] [place] [address] Pre-Anesthesia Evaluation 09/13/24 1204 MR#: [id number] Acct: [id number] Name: OSCAR WOO Rep #:[id number] : 1950 74 From: Omar Walters MD PCP: Dr. Kamar Grimes MD Status:ADM IN Y Race: C Location: [place] [address] ASA Classification* ASA Classification ASA Classification: 2 [...] LEFT SHOULDER Anesthesia History Anesthesia History - supervisor counseling and guidance: Anesthesia History - supervisor counseling and guidance Hx Hospitalization No 09/11/24 15:02 Any Problems [...] take am of surgery PONV PONV - supervisor counseling and guidance: PONV - supervisor counseling and guidance Female Yes 09/11/24 15:02 HX of Motion [...] 05/05/22 15:52 Respiratory Assessment Respiratory Assessment - supervisor counseling and guidance: Respiratory Tract Infection Hx - supervisor counseling and guidance Hx Respiratory Tract Infection No 09/11/24 15:02 STOP Sleep Apnea STOP Sleep Apnea - supervisor counseling and guidance: STOP Sleep Apnea - supervisor counseling and guidance Hx Hypertension Yes: CONTROLLED WITH MED 09/11/24 [...] Tobacco Use History Tobacco Use History - supervisor counseling and guidance: Tobacco Use History - supervisor counseling and guidance Tobacco Use Smoking Status Former smoker 09/11/24 15:02 Hx Tobacco Use No 09/11/24 15:02 Years Smoking Packs Smoked per Day Smoking Cessation Date was No - quit smoking greater 09/11/24 15:02 within the last 15 years than 15 years ago Hx Smoking Cessation Date Hx Smoking Cessation No 09/11/24 15:02 Counseling Hematologic Medial History Hematologic Hx - supervisor counseling and guidance: 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 Hx of Blood Transfusion Yes 09/11/24 15:02 [...] confused, unrespo /Reproduction History /Reproductive History - supervisor counseling and guidance: /Reproductive Hx- supervisor counseling and guidance Hx Now No 09/11/24 15:02 Gestational Age [...] MD Cosigner Signature: Date CC: ~ [facility]igned [facility] Madi Caballero [facility] Note Date/Time March 26, 2025 3:22pm [facility] Medical Records Department [address] [place] [address] Counseling Note - Pharmacy 03/26/25 1342 MR#: [id number] Acct: [id number] Name: OSCAR WOO Rep #:[id number] : 1950 75 From: Madi medel PCP: Dr. Kamar Grimes MD Status:ADM IN Y Location: [place] [address] Pharmacy [facility] has performed discharge medication counseling [...] Signature (if applicable): Date CC: ~ Signed [facility] Work Phone: Consult note Author Reginaldo Franzceline [facility] Note Date/Time April 19, 2025 6 :01pm [facility] Medical Records Department [address] [place] [address] Consultation - Die Storage Clerk 04/19/25 1750 MR#: [id number] Acct: [id number] Name: OSCAR WOO Rep #:[id number] : 1950 75 From: Reginaldo Fatima MD PCP: Dr. Kamar Grimes MD Status:ADM IN Location: ICU CVICU 1-1 HPI Consult Data Date of Consult: [...] denies SOB but her brain still seems foggy. [facility] Medical History Saccular aneurysm Infection of [...] C L 04/19/25 15:30 Temperature Source Temporal 10/18/25 15:30 Pulse Rate 89 04/19/25 17:30 Pulse [...] mls @ 15 mls/hr 04/19/25 02:16 IV .[id number] PRN Saline Flush Sodium Chloride 250 mls @ 15 mls/hr 04/19/25 02:16 IV .[id number] PRN Additional IVPB Infusion Melatonin 10 mg [...] 22:00 Senna/Docusate Sodium 1 Tablet PO BID [facility] Sodium Chloride 10 - 40 ml 04/19/25 [...] 72.5 H, Lymph % (Auto) 15.6 L, [place] % (Auto) 7.9, Eos % (Auto) 2.7, [...] No focal consolidation. Mild cardiomegaly. Reading Location: [facility] Assessment and Plan . Assessment and plan: [...] applicable): CC: Dr. Kamar Grimes MD~ Signed [facility] Work Phone: Consult note Author Keya Basilio [facility] Note Date/Time April 21, 2025 8 :53pm [facility] Medical Records Department [address] [place] [address] Consultation - Nephrology 04/21/252049 MR#: [id number] Acct: [id number] Name: OSCAR WOO Rep #:[id number] : 1950 75 From: Keya kendrick MD PCP: Dr. Kamar Grimes MD Status:[facility]M [facility] Assessment & Plan Assessment/Plan (1) [...] right now. no urinary complaints. [facility] Medical History Saccular aneurysm Infection of [...] RLS 5 Unknown History OXYGEN - Supplemental ([facility] hypoxia 04/21/25 Unknown Hi story INFORMATIONAL [...] 74.4 H, Lymph % (Auto) 13.3 L, [place] % (Auto) 8.1, Eos % (Auto) 2.6, [...] applicable): CC: Dr. Kamar Grimes MD~ Signed [facility] Work Phone: Discharge summary Author Garfiedl Pierson [facility] Note Date/Time April 23, 2025 5 :03pm [facility] Medical Records Department [address] [place] [address] Transfer to Extended Care MR#: [id number] Acct: [id number] Name: OSCAR WOO Rep #:[id number] : 1950 75 From: Garfield Chi PCP: Dr. Kamar Grimes MD Status:ADM IN Certification of patient admission REQUIRED AT TIME OF ADMISSION. I CERTIFY THAT POST-HOSPITAL ECF SERVICES ARE REQUIRED TO BE GIVEN ON AN IN-PATIENT BASIS BECAUSE OF THE ABOVE NAMED PATIENT'S NEED FOR SKILLED NURSING CARE ON A CONTINUING BASIS FOR THE [...] is a 75-year-old female who presented to [facility] ED on 04/18/2025 with worsening hyponatremia and [...] Repeat sodium was 123. Improved 3 mEq. Ring Packer is consulted. Calculated serum iron 267. Measured [...] normal range.UA negative, hCG 1.015, protein 30. Ring Packer on board 04/21: Serum sodium improved 127 today. K4.2. Bicarb of 37.5. Anion gap 5. Osmolar gap was normal as mentioned above. 04/22 was seen by security threat analyst. Sodium and chloride at baseline. Sodium 130 [...] % (Auto) 66.8, Lymph % (Auto) 18.2 L,Inyo % (Auto) 8.7, Eos % (Auto) 3.7, [...] 0.5 mg PO DINNER OXYGEN - Supplemental ([facility] INFORMATIONAL USE ONLY) Patient Comments: DME: [...] Quinn MD; Dr. Rosalind Key MD ~ [facility] Work Phone: Discharge summary Author Garfieldtapan Pierson [facility] Note Date/Time April 23, 2025 5 :11pm [facility] Medical Records Department [address] [place] [address] Discharge Summary 04/23/25 1708 MR#: [id number] Acct: [id number] Name: OSCAR WOO Rep #:[id number] : 1950 75 From: Garfield Chi PCP: Dr. Kamar Grimes MD Status:ADM IN Location: [place] [id number]- Providers Date of Admission: 04/18/25 Date of Discharge: 04/23/25 Primary Care Physician: Dr. Kamar Grimes MD Consultations 04/18/25 22:05 Consult: Nephrology Routine Consulting Provider: Keya Basilio Reason for Consult: worsening hyponatremia, severe hypochloremia, ELVIA EMERGENT Consult: No MD Notified: Yes Date Notified: 04/19/25 Time Notified: 06:47 Method of Notification: Answering Service 04/19/25 14:46 Consult: Die Storage Clerk / Pulmonary Medicine Routine Consulting Provider: Intensivists/Pulmonary Med Reason for Consult: hypotension, dizzy EMERGENT Consult: No MD Notified: Yes Date Notified: 04/19/25 Time Notified: 14:44 Method of Notification: Answering Service Reason For Visit: HYPONATREMIA, FALLS Diagnosis Discharge Diagnosis (1) Hyponatremia: Status: Acute Code(s): E87.1 - Hypo-osmolality and hyponatremia Plan Patient is a 75-year-old female who presented to [facility] ED on 04/18/2025 with worsening hyponatremia and [...] Repeat sodium was 123. Improved 3 mEq. Ring Packer is consulted. Calculated serum iron 267. Measured [...] normal range.UA negative, hCG 1.015, protein 30. Ring Packer on board 04/21: Serum sodium improved 127 today. K4.2. Bicarb of 37.5. Anion gap 5. Osmolar gap was normal as mentioned above. 04/22 was seen by security threat analyst. Sodium and chloride at baseline. Sodium 130 [...] % (Auto) 66.8, Lymph % (Auto) 18.2 L,Inyo % (Auto) 8.7, Eos % (Auto) 3.7, [...] PO DINNER RLS 04/16/25 OXYGEN - Supplemental ([facility] INFORMATIONAL USE ONLY) hypoxia 04/21/25 carvedilol [...] 0.5 mg PO DINNER OXYGEN - Supplemental ([facility] INFORMATIONAL USE ONLY) Patient Comments: DME: Dasheather 2 lpm NC continuous use, per CM [...] [facility] Facility Charges/Coding Visit Charges Inpatient E&M: 77010 Disch Hosp >30min 04/23/251710 <Electronically signed by Garfield Pierson MD> Cosigner Signature (if applicable): CC: Dr. Kamar Grimes MD; Dr. Garfield Pierson MD~ Signed [facility] Work Phone: Discharge summary Author Garfield Pierson [facility] Note Date/Time April 23, 2025 6 :03pm [facility] Medical Records Department [address] [place] [address] Transfer to [facility] MR#: [id number] Acct: [id number] Name: OSCAR WOO Rep #:[id number] : 1950 75 From: Garfield Chi PCP: Dr. Kamar Griems MD Status:ADM IN Certification of patient admission REQUIRED AT TIME OF ADMISSION. I CERTIFY THAT POST-HOSPITAL ECF SERVICES ARE REQUIRED TO BE GIVEN ON AN IN-PATIENT BASIS BECAUSE OF THE ABOVE NAMED PATIENT'S NEED FOR SKILLED NURSING CARE ON A CONTINUING BASIS FOR THE CONDITION(S) FOR WHICH HE/SHE WAS RECEIVING IN-PATIENT HOSPITAL SERVICES PRIOR TO HIS/HER TRANSFER TO THE ECF. 04/23/251702<Electronically signed by Garfield Pierson MD> Diet [...] is a 75-year-old female who presented to [facility] ED on 04/18/2025 with worsening hyponatremia and [...] Repeat sodium was 123. Improved 3 mEq. Ring Packer is consulted. Calculated serum iron 267. Measured [...] normal range.UA negative, hCG 1.015, protein 30. Ring Packer on board 04/21: Serum sodium improved 127 today. K4.2. Bicarb of 37.5. Anion gap 5. Osmolar gap was normal as mentioned above. 04/22 was seen by security threat analyst. Sodium and chloride at baseline. Sodium 130 [...] % (Auto) 66.8, Lymph % (Auto) 18.2 L,[place] % (Auto) 8.7, Eos % (Auto) 3.7, [...] Odilia Lockwood; Adarsh Salcido; Hermann Can; Gage Jenikns; Celestino Gallagher; Tacos Hollins; John Quinn; Keya [...] 0.5 mg PO DINNER OXYGEN - Supplemental ([facility] INFORMATIONAL USE ONLY) Patient Comments: DME: [...] Order can be placed): Penitentiary Facility 04/23/25 0799 <Electronically signed by Garfield Pierson MD> Cosigner [...] Rojas DO; Dr. Butch Ospina MD; Dr. rTavis Daley MD; Dr. Elva Mixon; Dr. John Shepard MD; Dr. Adarsh Salcido MD; Dr. Odilia Lockwood MD;Dr. Roopa Sands MD; Dr. Alina Garcia MD; Dr. Angel Alva DO; Dr. Gage Jenkins MD; Dr. Hermann Can DO; Dr. Tacos Hollins MD; Dr. Celestino Gallagher MD; Dr. John Quinn MD; Dr. Rosalind Key MD ~ [facility] Work Phone: Evaluation noteNo assessment information available [facility] Work Phone: Evaluation note* Diagnosis Onset Date Resolution Status Admit Date Acute dehydration acute Septemb er 2024 7:38pm [facility] Acute kidney injury acute Septe er 2024 7:38pm Acute respiratory failure with hypoxia and hypercapnia acute Sep tember 2024 7:38pm Bacteria in urine acute Septemb er 2024 7:38pm Debility acute March 7:38pm Hypothermia acute March 7:38pm Shock acute March 7:38pm Acute on chronic respiratory failure with hypoxia and hypercapnia chronic March 18, 2025 7:38pm [facility] Work Phone: History and physical note Author Emili Lee [facility] Note Date/Time March 18, 2025 8:45pm [facility] Medical Records Department [address] [place] [address] H&P Exam - Hospitalist 03/18/251937 MR#: [id number] Acct: [id number] Name: OSCAR WOO Rep #:[id number] : 1950 75 From: Emili Lee MD PCP: Dr. Kamar Grimes MD Status:ADM IN Location: ICU ICU02-1 HPI - General General Date of Admission: 03/18/25 Date of Service: 03/18/25 Chief Complaint: Altered mental status HPI Narrative OSCAR WOO, is a 75-year-old female with a history of restless leg syndrome, hypertension, depression, hypertension presented [facility] ED 03/18/2025 due to altered mental status. [...] not been having any vomiting. [facility] Medical History Infection and inflammatory reaction [...] mg tablet 15 mg PO QHS INSOMNIA 12/23/ 20 12/22/20 20:00 History duloxetine 30 mg capsule,delayed 30 [...] 84.3 H, Lymph % (Auto) 7.4 L, Inyo % (Auto) 7.0, Eos % (Auto) 0.0, [...] Clarity Clear, Urine pH 6.0, Ur Specific Strat[place] 1.015, Urine Protein 30 H, Urine Glucose [...] IMPRESSION: No acute intracranial process. Reading Location: [id number] Chest X-Ray 03/18/25 15:35 IMPRESSION: Bilateral low lung volumes. No acute cardiopulmonary abnormality. Reading Location: [id number] Chest X-Ray 03/18/25 17:44 IMPRESSION: 1. Endotracheal tube tip 3.1 cm above the abigail. 2. Enteric tube appropriately positioned terminating in the upper midabdomen. 3. Cardiomegaly, with increased vascular markings and possible interstitial edema. Reading Location: [id number] KUB X-Ray 03/18/25 18:00 IMPRESSION: Enteric tube terminates appropriately within the stomach. Persistent IV contrast opacifying the kidneys suggesting medical renal disease with delayed excretion. Reading Location: [facility] Assessment & Plan Assessment/Plan (1) [...] started -Patient be admitted to the ICU, salt manager consulted - Patient received 1 L of IV fluids, not given further IV fluids due to recent diagnosis of heart failure and chest x-ray coronary congestion # Acute hypoxic hypercapnic respiratory failure -Patient came in altered, developed progressive hypoxia and was found to be hypercapnic, ultimately required intubation and sedation -Admit to ICU -Workup as above -Scheduled nebs -Will check proBNP - Die Storage Clerk consult #Acute renal failure - Creatinine was [...] Vasopressors started Charges/Coding Visit Charges Inpatient E&M: 19587 Init Hosp L3 03/18/252044 <Electronically signed by Emili Lee MD> Cosigner Signature (if applicable): CC: Dr. Kamar Grimes MD; Dr. Emili Lee MD~ Signed [facility] Work Phone: History and physical note Author Jermaine Simms [facility] Note Date/Time April 18, 2025 1 0:05pm [facility] Medical Records Department [address] [place] [address] H&P Exam - Hospitalist 04/18/257 MR#: [id number] Acct: [id number] Name: OSCAR WOO Rep #:[id number] : 1950 75 From: Jermaine Beatty jennifer PIERSON PCP: Dr. Kamar Grimes MD Status:ADM IN Location: U [id number]- [id number] HPI - General General Date of Admission: 04/18/25 Date of Service: 04/18/25 Chief Complaint: Worsening hyponatremia and falls HPI Narrative OSCAR WOO, is a 75 F who presented to [facility] on 04/18/2025 with worsening hyponatremia and falls at home. [facility] Medical history significant for class II obesity [...] be admitted for further management. [facility] Medical History Saccular aneurysm Infection of [...] 77.8 H, Lymph % (Auto) 10.9 L, Inyo % (Auto) 8.9, Eos % (Auto) 1.6, [...] is a 75-year-old female who presented to [facility] ED on 04/18/2025 with worsening hyponatremia and [...] 86 minutes. Charges/Coding Visit Charges Inpatient E&M: 36075 Init Hosp L3 04/18/252204 <Electronically signed by Jermaine Simms DO> Cosigner Signature (if applicable): CC: Dr. Jermaine Simms DO; Dr. Kamar Grimes MD~ Signed [facility] Work Phone: Hospital Discharge instructionsAdditional Instructions 1. [...] Reddy as previously instructed Date of Discharge: 03/26/25[facility] Work Phone: Hospital Discharge instructionsAdditional Instructions Date of Discharge: 04/23/25[facility] Work Phone: Progress note Author Garfield Pierosn [facility] Note Date/Time April 19, 2025 4 :45pm [facility] Medical Records Department [address] [place] [address] Progress Note - Hospitalist 04/19/251136 MR#: [id number] Acct: [id number] Name: OSCAR WOO Rep #:[id number] : 1950 75 From: Garfield Chi PCP: [...] 77.8 H, Lymph % (Auto) 10.9 L, Inyo % (Auto) 8.9, Eos % (Auto) 1.6, [...] is a 75-year-old female who presented to [facility] ED on 04/18/2025 with worsening hyponatremia and [...] Repeat sodium was 123. Improved 3 mEq. Ring Packer is consulted. Calculated serum iron 267. Measured [...] 35 minutes. Charges/Coding Visit Charges Inpatient E&M: 91270 Subs Hosp L3 04/19/25 1645 <Electronically signed by Garfield Pierson MD> Cosigner Signature (if applicable): CC: ~ Signed [facility] Work Phone: Prordsjj note Author Keya Basilio [facility] Note Date/Time April 19, 2025 4 :34pm [facility] Medical Records Department [address] [place] [address] Progress Note 04/19/25 1633 MR#: [id number] Acct: [id number] Name: OSCAR WOO Rep #:[id number] : 1950 75 From: Keya kendrick MD PCP: Dr. Kamar Grimes MD Status:ADM IN Location: ICU CVICU20 1 Progress Note attempted to see earlier. was not in room. chart reviewed. normal baseline sodium. hyponatremia, hypochloremia, likely volume depletion. 04/19/25 1634 <Electronically signed by Keya Basilio MD> Keya Basilio MD Cosigner Signature (if applicable): CC: ~ Signed [facility] Work Phone: Promubxz note Author Garfield [facility] Note Date/Time April 20, 2025 8 :21am [facility] Medical Records Department [address] [place] [address] Progress Note - Hospitalist 04/20/25 0726 MR#: [id number] Acct: [id number] Name: OSCAR WOO Rep #:[id number] : 1950 75 From: Garfield Chi PCP: Dr. Kamar Grimes MD Status:ADM IN Location: ICU CVICU20 1- Reason for Visit Chief Complaint: Worsening hyponatremia [...] (Auto) 72.5 H, Lymph % (Auto) 15.6 L,Inyo % (Auto) 7.9, Eos % (Auto) 2.7, [...] (Auto) 73.3 H, Lymph % (Auto) 14.8 L,Inyo % (Auto) 7.7, Eos % (Auto) 2.9, [...] No focal consolidation. Mild cardiomegaly. Reading Location: [facility] Physical Exam Narrative Seen and examined Patient [...] is a 75-year-old female who presented to [facility] ED on 04/18/2025 with worsening hyponatremia and [...] Repeat sodium was 123. Improved 3 mEq. Ring Packer is consulted. Calculated serum iron 267. Measured [...] normal range.UA negative, hCG 1.015, protein 30. Ring Packer on board 2. ELVIA with mild hyperkalemia, [...] 35 minutes. Charges/Coding Visit Charges Inpatient E&M: 74061 Subs Hosp L3 04/20/25 0821 <Electronically signed by Garfield Pierson MD> Cosigner Signature (if applicable): CC: ~ Signed [facility] Work Phone: Progress note Author Reginaldo Fatima [facility] Note Date/Time April 20, 2025 2 :29pm [facility] Medical Records Department [address] [place] [address] Progress Note - Die Storage Clerk 04/20/25 1428 MR#: [id number] Acct: [id number] Name: OSCAR WOO Rep #:[id number] : 1950 75 From: Reginaldo Fatima MD [...] mls @ 15 mls/hr 04/19/25 02:16 IV .[id number] PRN Saline Flush Sodium Chloride 250 mls @ 15 mls/hr 04/19/25 02:16 IV .[id number] PRN Additional IVPB Infusion Melatonin 10 mg [...] (Auto) 72.5 H, Lymph % (Auto) 15.6 L,Inyo % (Auto) 7.9, Eos % (Auto) 2.7, [...] (Auto) 73.3 H, Lymph % (Auto) 14.8 L,Inyo % (Auto) 7.7, Eos % (Auto) 2.9, [...] Sl. Cloudy, Urine pH 6.0, Ur Specific [place] 1.010, Urine Protein 30 H, Urine Glucose [...] No focal consolidation. Mild cardiomegaly. Reading Location: [facility] Assessment and Plan . Assessment and plan: [...] Cosigner Signature (if applicable): CC: ~ Signed [facility] Work Phone: Progress note Author Garfield Pierson [facility] Note Date/Time April 21, 2025 8 :39am [facility] Medical Records Department [address] [place] [address] [place] [address] Progress Note - Hospitalist 04/21/25 0833 MR#: [id number] Acct: [id number] Name: OSCAR WOO Rep #:[id number] : 1950 75 From: Garfield Chi PCP: [...] Sl. Cloudy, Urine pH 6.0, Ur Specific [place] 1.010, Urine Protein 30 H, Urine Glucose [...] 74.4 H, Lymph % (Auto) 13.3 L, Inyo % (Auto) 8.1, Eos % (Auto) 2.6, [...] is a 75-year-old female who presented to [facility] ED on 04/18/2025 with worsening hyponatremia and [...] Repeat sodium was 123. Improved 3 mEq. Ring Packer is consulted. Calculated serum iron 267. Measured [...] normal range.UA negative, hCG 1.015, protein 30. Ring Packer on board 04/21: Serum sodium improved 127 [...] and 3 L with exertion. Has suspected ENEL and recommendation wasfor outpatient workup for this [...] Sl. Cloudy, Urine pH 6.0, Ur Specific [place] 1.010, Urine Protein 30 H, Urine Glucose [...] 74.4 H, Lymph % (Auto) 13.3 L, In[place] % (Auto) 8.1, Eos % (Auto) 2.6, [...] Calcium 9.0 Charges/Coding Visit Charges Inpatient E&M: 65522 Subs Hosp L2 04/21/25 0839 <Electronically signed by Garfield Pierson MD> Cosigner Signature (if applicable): CC: ~ Signed [facility] Work Phone: Progress note Author Keya Basilio [facility] Note Date/Time April 23, 2025 6 :52pm [facility] Medical Records Department [address] [place] [address] Progress Note - Nephrology 04/22/25 1725 MR#: [id number] Acct: [id number] Name: OSCAR WOO Rep #:[id number] : 1950 75 From: Keya kendrick MD PCP: Dr. Kamar Grimes MD Status:ADM IN Location: [place] [address] Subjective Subjective no new events Objective Data [...] 23:59 23:59 Intake Total 660 / 660 1940 / 1940 Output Total 300 / 300 Balance 360 [...] % (Auto) 66.8, Lymph % (Auto) 18.2 L,Inyo % (Auto) 8.7, Eos % (Auto) 3.7, [...] Cosigner Signature (if applicable): CC: ~ Signed [facility] Work Phone: Progress note Author Garfield Pierson [facility] Note Date/Time April 22, 2025 5 :33pm [facility] Medical Records Department [address] [place] [address] Progress Note - Hospitalist 04/22/251728 MR#: [id number] Acct: [id number] Name: OSCAR WOO Rep #:[id number] : 1950 75 From: Garfield Chi PCP: Dr. Kamar Grimes MD Status:ADM IN Location: [place] [address] Reason for Visit Chief Complaint: Worsening hyponatremia [...] % (Auto) 66.8, Lymph % (Auto) 18.2 L,Inyo % (Auto) 8.7, Eos % (Auto) 3.7, [...] Physician: Sixto Trinh Performed By: Dada Andujar, RVT Physical Exam Narrative Seen and examined [...] is a 75-year-old female who presented to [facility] ED on 04/18/2025 with worsening hyponatremia and [...] Repeat sodium was 123. Improved 3 mEq. Ring Packer is consulted. Calculated serum iron 267. Measured [...] normal range.UA negative, hCG 1.015, protein 30. Ring Packer on board 04/21: Serum sodium improved 127 today. K4.2. Bicarb of 37.5. Anion gap 5. Osmolar gap was normal as mentioned above. 04/22 was seen by security threat analyst. Sodium and chloride at baseline. Sodium 130 [...] % (Auto) 66.8, Lymph % (Auto) 18.2 L,Inyo % (Auto) 8.7, Eos % (Auto) 3.7, [...] Calcium 9.7 Charges/Coding Visit Charges Inpatient E&M: 70793 Subs Hosp L2 04/22/25 2625 <Electronically signed by Garfield Pierson MD> Cosigner Signature (if applicable): CC: ~ Signed [facility] Work Phone: Reason for referral (narrative)No reason for referral information [facility] Work Phone: Advance Directives Documents on File Type Date Recorded Patient Corrosion Engineer Expl anation Advance Directive(s) 01/27/2016 7:37 AM Advance Directive Response Recorded Date/ Time Advance Directives Yes October 03 3:41pm Living Will Yes June 24, 020 2:31pm Power of Printing Engineer Yes June 24, 2020 2:31pm Advance Directive Response Recorded Date/ Time Advance Directives Yes October 03 2:41pm Living Will Yes June 24 020 1:31pm Power of Printing Engineer Yes June 24, 2020 1:31pm Advance Directive Response Recorded Date/ Time Living Will Yes September 13, 2024 6:26pm Power of Printing Engineer Yes September 13 6:26pm Name of Medical Power of Printing Engineer GRANDDAUGHTER/ SISTER September 13, 2024 6:26pm Advance Directives Yes October 03 3:41pm Advance Directive Response Recorded Date/ Time Living Will Yes September 18, 2024 4:28pm Do you have a Healthcare Power of Printing Engineer? Yes September 18, 2024 4:28pm Name of Medical Power of Printing Engineer Sister (Mary Jane Daniels) and Granddaughter (Pattie Woo) September 18, 2024 4:28pm Living Will Yes September 13, 2024 6:26pm Do you have a Healthcare Power of Printing Engineer? Yes September 13, 2024 6:26pm Name of Medical Power of Printing Engineer GRANDDAUGHTER/SISTER September 13, 2024 6:26pm Advance Directives Yes October 03 3:41pm Advance Directive Response Recorded Date/ Time Advance Directives Yes October 03 3:41pm Advance Directive Response Recorded Date/ Time Do you have a Healthcare Power of Printing Engineer? No March 18, 2025 3:48pm Advance Directives Yes October 03 3:41pm Advance Directive Response Recorded Date/ Time Do you have a Healthcare Power of Printing Engineer? No March 18, 2025 3:48pm Do you have a Healthcare Power of Printing Engineer? Yes April 18, 2025 7:55pm Advance Directives Yes October 03 3:41pm Advance Directive Response Recorded Date/ Time Do you have a Healthcare Power of Printing Engineer? No March 18, 2025 2:48pm Do you have a Healthcare Power of Printing Engineer? Yes April 18, 2025 6:55pm Advance Directives [...] Essential (primary) hypertension Septemb er 2024 7:38pm Hypothermia March 18, 2025 7:38pm [...] or prosecute any alcohol or drug abuse patient.[facility] Goals (unrecognized section and content) Type [...] Dr. Kamar Grimes MD Primary Care Provider, Attending Wenceslao [...] Start: March 18, 2025 Jodi Al NP, MANAGER SCIENCE-C Nurse Practitioner Active Start: March 18, 2025 Sahara Chen MANAGER SCIENCE-C Nurse Practitioner Active Start: March 18, 2025 [...] End: March 26, 2025 Dr. Angel Alva , Nurse Practitioner Active Start: March 18, 2025 [...] End: March 26, 2025 Jodi Al NP, MANAGER SCIENCE-C Nurse Practitioner Active Start: March 18, 2025 End: March 26, 2025 Sahara Chen MANAGER SCIENCE-C Nurse Practitioner Active Start: March 18, 2025 [...] Active St art: March 19, 2025 Dr. Lamni Campos MD Nurse Practitioner Active S tart: [...] Active Start: March 19, 2025 Jodi Al MANAGER SCIENCE, MANAGER SCIENCE-C Nurse Practitioner Active Start: March 19, 2025 [...] Start: March 19, 2025 Jodi Al NP, MANAGER SCIENCE-C Nurse Practitioner Active Start: March 19, 2025 [...] Start: March 20, 2025 Jodi Al NP, MANAGER SCIENCE-C Nurse Practitioner Active Start: March 20, 2025 [...] Active Start: March 20, 2025 Jodi Al MANAGER SCIENCE, MANAGER SCIENCE-C Nurse Practitioner Active Start: March 20, 2025 Sahara Chen MANAGER SCIENCE-C Nurse Practitioner Active Start: March 20, 2025 [...] Start: March 20, 2025 Jodi Al NP, MANAGER SCIENCE-C Nurse Practitioner Active Start: March 20, 2025 Sahara Chen MANAGER SCIENCE-C Nurse Practitioner Active Start: March 20, 2025 [...] Start: March 21, 2025 Dr. Antwan Gardner , Attending physician Active Start: March 21, 2025 Dr. Antwan Gardner , Nurse Practitioner Active S tart: March 21, [...] Start: March 21, 2025 Dr. Hermann Can , Nurse Practitioner Active Start: March 21, 2025 Dr. Cuate Rao MD Nurse Practitioner Active Start: March 21, 2025 Dr. Celestino Gallagher MD Nurse Practitioner Active Start: March 21, 2025 Dr. Tacos Hollins MD Nurse Practitioner Active Start: March Dr. John Quinn MD Nurse Practitioner Active Start: March 21, 2025 Jodi Al MANAGER SCIENCE, MANAGER SCIENCE-C Nurse Practitioner Active Start: March 21, 2025 [...] Start: March 21, 2025 Jodi Al NP, MANAGER SCIENCE-C Nurse Practitioner Active Start: March 21, 2025 [...] Active Start: March 22, 2025 Dr. Antwan Gardner DO Nurse Practitioner [...] Active Start: March 22, 2025 Dr. Al Agnel MD Nurse Practitioner Active Start: March 22, 2025 Dr. Ruma Barnes MD Nurse Practitioner Active Start: March 22, 2025 Dr. Travis Daley MD Nurse Practitioner Active Start: March 22, 2025 Dr. Butch Ospina MD Nurse Practitioner Active Start: March 22, 2025 Dr. John Shepard MD Nurse Practitioner Active Start: March 22, 2025 Dr. Angel Alva , DO Nurse Practitioner Active Start: March 22, 2025 Dr. Alina Garcia MD Nurse Practitioner Active St art: March 22, 2025 Dr. Roopa Sands MD Nurse Practitioner Active Start: March 22, 2025 Dr. Hermann Can , DO Nurse Practitioner Active Start: March 22, 2025 Dr. Cuate Rao MD Nurse Practitioner Active Start: March 22, 2025 Dr. Celestino Gallagher MD Nurse Practitioner Active Start: March 22, 2025 Dr. Tacos Hollins MD Nurse Practitioner Active Start: March Dr. John Quinn MD Nurse Practitioner Active Start: March 22, 2025 Jodi Al MANAGER SCIENCE, MANAGER SCIENCE-C Nurse Practitioner Active Start: March 22, 2025 [...] Start: March 23, 2025 Jodi Al NP, MANAGER SCIENCE-C Nurse Practitioner Active Start: March 23, 2025 [...] March 24, 2025 Dr. Angel Alva , Nurse Practitioner Active Start: March 24, [...] Active Start: March 24, 2025 Jodi Al NP, MANAGER SCIENCE-C Nurse Practitioner Active Start: March 24, 2025 Sahara Chen NP-C Nurse Practitioner Active Start: March 24, 2025 Dr. Karla Bustamante DO Attending physician Active Start: March 24, 2025 [...] Practitioner Active Start: March 25, 2025 Dr. Antwan Gardner , Nurse Practitioner [...] Start: March 25, 2025 Dr. Angel Alva , Nurse Practitioner Active Start: March 25, 2025 Dr. Alina Garcia MD Nurse Practitioner Active St art: March 25, 2025 Dr. Roopa Sands MD Nurse Practitioner Active Start: March 25, 2025 Dr. Hermann Can DO Nurse Practitioner Active Start: March 25, 2025 Dr. Cuate Rao MD Nurse Practitioner Active Start: March 25, 2025 Dr. Celestino Gallagher MD Nurse Practitioner Active Start: March 25, 2025 Dr. Tacos Hollins MD Nurse Practitioner Active Start: March Dr. John Quinn MD Nurse Practitioner Active Start: March 25, 2025 Jodi Al NP, MANAGER SCIENCE-C Nurse Practitioner Active Start: March 25, 2025 Sahara Chen , MANAGER SCIENCE-C Nurse Practitioner Active Start: March 25, 2025 Dr. Karla Bustamante DO Attending physician Active Start: March 25, 2025 [...] Active Start: March 26, 2025 Dr. Travis aDley MD Nurse Practitioner Active Start: March 26, 2025 Dr. Butch Ospina MD Nurse Practitioner Active Start: March 26, 2025 Dr. John Shepard MD Nurse Practitioner Active Start: March 26, 2025 Dr. Angel lAva , Nurse Practitioner Active Start: March 26, 2025 Dr. Alina Garcia MD Nurse Practitioner Active St art: March 26, 2025 Dr. Roopa Sands MD Nurse Practitioner Active Start: March 26, 2025 Dr. Hermann Can , Nurse Practitioner Active Start: March 26, 2025 Dr. Cuate Rao MD Nurse Practitioner Active Start: March 26, 2025 Dr. Celestino Gallagher MD Nurse Practitioner Active Start: March 26, 2025 Dr. Tacos Hollins MD Nurse Practitioner Active Start: March Dr. John Quinn MD Nurse Practitioner Active Start: March 26, 2025 Jodi Al NP, MANAGER SCIENCE-C Nurse Practitioner Active Start: March 26, 2025 [...] Active Start: March 19, 2025 Jodi Al MANAGER SCIENCE, MANAGER SCIENCE-C Nurse Practitioner Active Start: March 19, 2025 [...] Active Start: March 20, 2025 Jodi Al MANAGER SCIENCE, MANAGER SCIENCE-C Nurse Practitioner Active Start: March 20, 2025 [...] Active Start: March 21, 2025 Jodi Al MANAGER SCIENCE, MANAGER SCIENCE-C Nurse Practitioner Active Start: March 21, 2025 [...] 18, 2025 End: April 23, 2025 Dr. uRma Barnes MD Nurse Practitioner Active Start: April [...] April End: April 23, 2025 Dr. John Sheprad MD Nurse Practitioner Active Start: April 18, 2025 End: April 23, 2025 Dr. Angel Alva DO Nurse Practitioner Active Start: April 18, [...] End: April 23, 2025 Dr. Hermann Can DO Nurse Practitioner Active Start: April 18, [...] Start: April 19, 2025 Dr. Jermaine Simms , Admitting physician Active Start: April 19, 2025 [...] Practitioner Active Start: April 20, 2025 Dr. Gafrield Pierson MD Attending physician [...] April 20, 2025 Dr. Antwan Gardner , DO Nurse Practitioner Active S tart: April 20, 2025 Dr. Abdirashid Smith MD Nurse Practitioner Active Start: April 20, 2025 Dr. Gemini Briceño , DO Nurse Practitioner Active S tart: April 20, [...] April 20, 2025 Dr. Angel Alva , Nurse Practitioner Active Start: April 20, [...] April 21, 2025 Dr. Antwan Gardner , DO Nurse Practitioner Active S tart: April 21, [...] April 21, 2025 Dr. Nayely Givens , Nurse Practitioner Active Start: April 21, 2025 Dr. Jamie Sawant MD Nurse Practitioner Active St art: April 21, 2025 Dr. Brenna Young MD Nurse Practitioner Active Start: April 21, 2025 Dr. Ruma Barnes MD Nurse Practitioner Active Start: April 21, 2025 Dr. Ritu Felipe MD Nurse Practitioner Active Start: April 21, 2025 Dr. Mari Fallon , Nurse Practitioner Active Start: April 21, [...] Start: April 22, 2025 Dr. Jermaine Simms DO Admitting physician Activ e Start: April 22, 2025 Dr. Jermaine Simms DO Nurse Practitioner Active Start: April 22, [...] April 22, 2025 Dr. Antwan Gardner , DO Nurse Practitioner Active S tart: April 22, 2025 Dr. Abdirashid Smith MD Nurse Practitioner Active Start: April 22, 2025 Dr. Gemini Briceño , Nurse Practitioner [...] April 22, 2025 Dr. Angel Alva , DO Nurse [...] April 23, 2025 Dr. Mari Fallon , Nurse Practitioner Active Start: April 23, [...] section and content) DATE CREATED AUTHOR 09/13/2024 [facility] DATE CREATED AUTHOR AUTHOR'S ORGANIZ ATION 10/04/[address] [facility] DATE CREATED AUTHOR AUTHOR'S ORGANIZ ATION 05/15/2025 [facility] FOR RECORDS PERTAINING TO PATIENTS WHO ARE [...] BE BASED ON THE PRIMARY CLINICAL RECORDS. [employer] provides no warranty or guarantee of the accuracy or completeness of information in this document.
[2025-06-24 00:39] VITALS: RESP 16; BMI 37.9
[2025-06-24 01:23] VITALS: BP 153/82; PULSE 76; RESP 18; TEMP 37.2; O2SAT 96
--- NOTE | 2025-06-24 02:17 | PCM.HP.STD ---
HPI - General General Date of Admission: 06/24/25 Date of Service: 06/24/25 Chief Complaint: Generalized weakness and shaking of legs HPI Narrative OSCAR ROMAN, is a 75 F with medical history significant for chronic hypoxemic hypercapnic respiratory failure, CHF preserved EF and CKD baseline 1.4 who is presenting from home with a new onset of generalized weakness affecting her ability to ambulate, shaking of extremities and feeling weak to walk. No worsening in dyspnea or cough, remains on 2 L oxygen overnight and as needed during the day. I could not find the reason for chronic hypoxemia and hypercapnia probably OHS or COPD or combination, this was started after her admission in March when she was intubated for respiratory failure and shock. Echo in May showed EF 75% and RVSP 36 mildly elevated. In the ED patient showed evidence of metabolic alkalosis on top of her chronic hypercapnia. pH 7.41 despite pCO2 of 72 which is higher than baseline, bicarbonate 40 higher than baseline which is around 34. She was not treated with a BiPAP to suggest a post hypercapnic metabolic alkalosis and that was confirmed with the ED staff/physician. BUN 65 baseline of 43 and creatinine 1.79 from baseline 1.4 all suggesting contraction alkalosis from diuresis as she takes Lasix, Aldactone and losartan and she is on fluid restriction because of history of hyponatremia. Also potassium was 5.5 suggesting the effect of Aldactone and losartan. Incidentally her CTA showed right main pulmonary artery PE although she denies any significant change in her breathing or at least it is a fluctuating problem so she cannot tell if there is something new but she mainly came because of shaking and weakness in legs. [facility] Medical History Infection of prosthetic shoulder joint Essential (primary) hypertension Debility Infection and inflammatory reaction due to other internal joint prosthesis, initial encounter Insomnia MRSA (methicillin resistant staph aureus) culture positive Wears glasses Post-menopausal Depression Anxiety Walker as ambulation aid Ambulates with cane Arthritis High cholesterol Back pain Restless legs Former smoker Shortness of breath on exertion History of pain when walking History of edema Hypertension Home Medications ?Medication ?Instructions ?Recorded ?Last Taken ?Type losartan 50 mg tablet 50 mg PO BID BP 09/19/14 06/22/25 History melatonin 5 mg tablet 10 mg PO QHS INSOMNIA 09/19/14 06/22/25 History bupropion HCl 300 mg 24 hr tablet, 150 mg PO DAILY DEPRESSION 06/11/20 06/22/25 History extended release mirtazapine 15 mg tablet 15 mg PO QHS INSOMNIA 06/24/20 06/22/25 History duloxetine 30 mg capsule,delayed 30 mg PO DAILY DEPRESSION 09/11/24 06/22/25 History release (Cymbalta) loperamide 2 mg capsule 2 mg PO Q2H PRN PRN DIARRHEA #0 09/17/24 Unknown Rx caps albuterol sulfate 90 mcg/actuation 2 inh inhalation Q4H PRN shortness 03/18/25 Unknown History aerosol inhaler of breath or wheezing pramipexole 1 mg tablet 1 mg PO QHS restless leg 03/18/25 Unknown History spironolactone 50 mg tablet 50 mg PO DAILY diuretic 03/18/25 04/18/25 History lactobacillus combination no.9 4 4,000 mmu cells PO QDAY GI health 04/16/25 Unknown History billion cell capsule (Adult 50 Plus Probiotic) ondansetron HCl 4 mg tablet 4 mg PO Q8 PRN nausea and vomiting 04/16/25 Unknown History pramipexole 0.5 mg tablet 0.5 mg PO DINNER RLS 04/16/25 06/22/25 History OXYGEN - Supplemental ([facility] hypoxia 04/21/25 06/24/25 History INFORMATIONAL USE ONLY) carvedilol 3.125 mg tablet 3.125 mg PO BID #0 tabs 04/23/25 06/22/25 Rx doxycycline monohydrate 100 mg 100 mg PO BID shoulder infection 06/06/25 06/22/25 History capsule gabapentin 300 mg capsule 600 mg PO QHS neuropathy 06/06/25 06/22/25 History aspirin 81 mg chewable tablet 81 mg PO DAILY blood thinner 06/23/25 06/23/25 History furosemide 20 mg tablet 20 mg PO DAILY diuretic 06/23/25 06/22/25 History Allergy/AdvReac Type Severity Reaction Status Date / Time Penicillins Allergy Anaphylaxis Verified 06/23/25 13:58 Family History Mother Heart disease Diabetes Brother Heart disease Diabetes Brother Heart disease pacemaker Sister Atrial fibrillation Surgical History History of reverse total replacement of right shoulder joint History of surgery Hx of colonoscopy Hx of right cataract extraction Hx of left cataract extraction History of partial colectomy Hx of appendectomy Hx of total hip arthroplasty Hx of total shoulder replacement Hx of lumbar discectomy Hx of total shoulder replacement Hx of total hip arthroplasty Social History household members: none Smoking Status: Former smoker how long ago did patient quit smokin years ago alcohol intake: never substance use type: does not use caffeine: No ROS Constitutional Constitutional: Denies fever(s) or poor appetite ENT HEENT: Reports none Cardiovascular Cardiovascular: Denies chest pain or dyspnea Respiratory/Chest Respiratory/Chest: Denies cough or wheezing Gastrointestinal Gastrointestinal: Denies abdominal pain or change in bowel habits Genitourinary Genitourinary: Denies change in urinary stream or dysuria Musculoskeletal Musculoskeletal: Denies arthralgias or myalgias Integumentary Integumentary: Reports none Neurologic Neurologic: Denies abnormal speech, dizziness, focal weakness, loss of vision or numbness Hematologic/Lymphatic Hematologic/Lymphatic: Reports none Patient's Goals Of Care . What would you like to achieve or improve as a result of your hospital stay?: Adjust diuretics Vital Signs Vital Signs Vital Signs: 06/23/25 13:53 06/23/25 19:34 06/23/25 19:34 Temperature 98.2 F Temperature Source Oral Pulse Rate 83 81 Respiratory Rate 18 Respiratory Effort Normal Respiratory Depth Respiratory Pattern Normal Blood Pressure 142/79 H 152/93 H Blood Pressure Mean 100 112 Blood Pressure Source Blood Pressure Position Blood Pressure Location Pulse Ox 98 16 Oxygen Delivery Method Nasal Cannula Nasal Cannula Oxygen Flow Rate (L/min) 2 2 06/23/25 19:34 06/23/25 21:00 06/23/25 22:57 Temperature 98.2 F Temperature Source Pulse Rate 80 78 Respiratory Rate 16 19 H Respiratory Effort Respiratory Depth Respiratory Pattern Blood Pressure 104/65 123/85 H Blood Pressure Mean 78 97 Blood Pressure Source Blood Pressure Position Blood Pressure Location Pulse Ox 96 94 Oxygen Delivery Method Nasal Cannula Nasal Cannula Oxygen Flow Rate (L/min) 2 2 06/23/25 22:59 06/24/25 00:39 06/24/25 01:23 Temperature 98.9 F Temperature Source Temporal Pulse Rate 81 76 Respiratory Rate 18 16 18 Respiratory Effort Non-Labored Respiratory Depth Normal Respiratory Pattern Normal Blood Pressure 123/85 H 153/82 H Blood Pressure Mean 97 105 Blood Pressure Source Monitor Blood Pressure Position Semi-Fowlers Blood Pressure Location Left Arm Pulse Ox 96 96 Oxygen Delivery Method Nasal Cannula Nasal Cannula Nasal Cannula Oxygen Flow Rate (L/min) 2 2 2 Weight Weight: 109.9 kg Body Mass Index (BMI) 37.9 Physical Exam Const alert and oriented x3 HEENT normocephalic and head/scalp atraumatic Eyes EOMs intact bilaterally; Negative for no scleral icterus Neck supple Resp normal respiratory effort and clear to auscultation bilaterally Cardio regular rate and regular rhythm; Negative for no murmurs GI normal to inspection, nondistended, normoactive bowel sounds; Negative for non-tender no CVA tenderness Extremity no joint enlargement and no pedal edema Skin no rashes or lesions noted Neuro oriented x3 and moves all extremities Results Lab / Micro Data 06/23/25 16:07 06/23/25 16:40 Labs: Laboratory Results - last 24 hr 06/23/25 14:39: WBC Cancelled, Corrected WBC Cancelled, RBC Cancelled, Hgb Cancelled, Hct Cancelled, MCV Cancelled, MCH Cancelled, MCHC Cancelled, RDW Std Deviation Cancelled, RDW Coeff of Terry Cancelled, Plt Count Cancelled, MPV Cancelled, Immature Gran % (Auto) Cancelled, Neut % (Auto) Cancelled, Lymph % (Auto) Cancelled, [place] % (Auto) Cancelled, Eos % (Auto) Cancelled, Baso % (Auto) Cancelled, Absolute Neuts (auto) Cancelled, Absolute Lymphs (auto) Cancelled, Total Counted Cancelled, Neutrophils % (Manual) Cancelled, Band Neutrophils % Cancelled, Lymphocytes % (Manual) Cancelled, Monocytes % (Manual) Cancelled, Eosinophils % (Manual) Cancelled, Basophils % (Manual) Cancelled, Metamyelocytes % Cancelled, Myelocytes % Cancelled, Promyelocytes % Cancelled, Blast Cells % Cancelled, Plasma Cell % (Manual) Cancelled, Other Cells % Cancelled, Nucleated RBC % Cancelled, Nucleated RBCs/100 WBC Cancelled, Differential Comment Cancelled, Diff Path Review Cancelled, Hypersegmented Neuts Cancelled, Atypical Lymphocytes Cancelled, Reactive Lymphocytes Cancelled, Smudge Cells Cancelled, Toxic Granulation Cancelled, Toxic Vacuolation Cancelled, Dohle Bodies Cancelled, Essie Rods Cancelled, Platelet Estimate Cancelled, Plt Morphology Comment Cancelled, RBC Morphology Cancelled 06/23/25 14:39: RBC Morphology Cancelled, Polychromasia Cancelled, Hypochromasia Cancelled, Basophilic Stippling Cancelled, Anisocytosis Cancelled, Microcytosis Cancelled, Macrocytosis Cancelled, Spherocytes Cancelled, Sickle Cells Cancelled, Target Cells Cancelled, Tear Drop Cells Cancelled, Ovalocytes Cancelled, Stomatocytes Cancelled, [place] Bodies Cancelled, [place] Cells Cancelled, Bite Cells Cancelled, Crenated Cell Cancelled, Acanthocytes (Spur) Cancelled, Rouleaux Cancelled, Schistocytes Cancelled, Sodium Cancelled, Potassium Cancelled, Chloride Cancelled, Carbon Dioxide Cancelled, Anion Gap Cancelled, BUN Cancelled, Creatinine Cancelled, Estim Creat Clear Calc Cancelled, Est GFR (MDRD) Non-Af Cancelled, BUN/Creatinine Ratio Cancelled, Glucose Cancelled, Calcium Cancelled 06/23/25 16:07: WBC 8.4, RBC 3.97 L, Hgb 12.0, Hct 40.2, MCV 101.3 H, MCH 30.2, MCHC 29.9 L, RDW Std Deviation 56.1 H, RDW Coeff of Terry 14.8 H, Plt Count 154, MPV 11.2, Immature Gran % (Auto) 1.000 H, Neut % (Auto) 78.9 H, Lymph % (Auto) 12.2 L, [place] % (Auto) 6.0, Eos % (Auto) 1.7, Baso % (Auto) 0.2, Absolute Neuts (auto) 6.6, Absolute Lymphs (auto) 1.02, Nucleated RBC % 0 06/23/25 16:40: Sodium 136, Potassium 5.5 H, Chloride 89 L, Carbon Dioxide 40.3 H, Anion Gap 6 L, BUN 65 H, Creatinine 1.79 H, Est GFR (MDRD) Non-Af 29 L, BUN/Creatinine Ratio 36.4 H, Glucose 107 H, Calcium 9.1, Total Bilirubin 0.26, Direct Bilirubin 0.13, AST 21, ALT 12, Alkaline Phosphatase 116 H, Total Protein 6.5, Albumin 3.8, Globulin 2.7 06/23/25 21:13: Urine Color Straw, Urine Clarity Clear, Urine pH 6.5, Ur Specific [place] 1.010, Urine Protein 15 H, Urine Glucose (UA) Normal, Urine Ketones Negative, Urine Occult Blood Negative, Urine Nitrite Negative, Urine Bilirubin Negative, Urine Urobilinogen Normal, Ur Leukocyte Esterase Negative, Urine RBC 0 SEEN, Urine WBC 0 SEEN, Ur Squamous Epith Cells 0-5 SEEN, Urine Bacteria RARE, Urine Mucus 0 SEEN ABG Data ABG results: ABG 06/23/25 20:58 Specimen Type ART Sample Site R Radial pH 7.41 Bicarbonate Actual 46.2 H Total CO2 48 Base Excess 22 H O2 Saturation 88 L O2 % 2.0 ABG pCO2 72.5 H* ABG pO2 58 L Miguelangel Test Positive O2 Delivery Device Cannula Vent Mode Not entered Crit Call To/Read Back Yes Blood Gas Notified Whom Scherer Blood Gas Notified Time 20:59:37 Imaging Radiology Impression Chest X-Ray 06/23/25 20:37 IMPRESSION: Mild cardiomegaly and mild pulmonary vascular congestion. Reading Location: [facility] Hip/Pelvis X-Ray 06/23/25 20:37 IMPRESSION: No evidence of acute fracture or dislocation. Bilateral hip arthroplasties with intact hardware. Reading Location: [facility] Chest CTA 06/23/25 23:05 IMPRESSION: Small right pulmonary artery thromboembolism. Reading Location: [place] [address] Assessment & Plan Assessment/Plan (1) Metabolic alkalosis: (2) Chronic respiratory failure with hypoxia and hypercapnia: (3) Hyperkalemia: (4) Acute kidney injury: (5) Volume contraction from diuretics: (6) Pulmonary embolism: QUALIFIERS: Pulmonary embolism type: other Chronicity: acute Acute cor pulmonale presence: without acute cor pulmonale Qualified Code(s): I26.99 - Other pulmonary embolism without acute cor pulmonale [facility] with evidence of contraction alkalosis, pH 7.41 despite a pCO2 of 72 without prior treatment for CO2 washout. On Aldactone, losartan and Lasix all can do that. She is on fluid restriction as well. EF was 75% hyperdynamic in May Hold Lasix, Aldactone and losartan. Small amount of normal saline (must have chloride responsive metabolic alkalosis from diuretics). Repeat BMP to check BUN, creatinine and bicarbonate following treatment Check magnesium Potassium 5.5 she might need lower dose Aldactone May also benefit from only as needed Lasix as she does not get too much swelling Incidental PE: Small in the distal right main artery and slightly extends to the right lower branch, not massive, RV size is almost half to one third of the LV. Hemodynamically stable Start Eliquis and discussed with the patient
[2025-06-24] MEDS: 0.9% Normal Saline (500mL Bag) 500 ML 125 ML IV (02:30)
[2025-06-24] MEDS: APIXABAN 5 MG TABLET 10 MG PO ×3 (02:30→21:33)
[2025-06-24 06:53] LABS: Anion Gap 7 (7-18); BUN 52 mg/dL (4-19); BUN/Creat Ratio 42.6 RATIO (10-20); Calcium,Total 8.9 mg/dL (7.6-11.0); Carbon Dioxide 36.5 mmol/L (20.0-29.0); Chloride 95 mmol/L (96-106); Estimated Creatinine Clearance 50.53 ml/min (50-250); Glucose 116 mg/dL (70-99); Magnesium 2.2 mg/dL (1.5-2.2); Potassium 5.3 mmol/L (3.5-5.1)
--- NOTE | 2025-06-24 07:14 | PN.HOSP_ITS ---
Reason for Visit Chief Complaint: Generalized weakness and shaking of legs Subjective Subjective Patient is a 75-year-old lady who presented with lightheadedness as well as shakiness.. Patient ABGs demonstrated acute hypercapnic respiratory failure. Admitted to a monitored bed for further management. CTA did make mention of an incidental small pulmonary embolism on the right side. Objective Data Objective Data Vital Signs: Vital Signs Temp Pulse Resp BP Pulse Ox O2 Del Method O2 Flow Rate 98.9 F 76 18 153/82 H 96 Nasal Cannula 2 06/24/25 01:23 06/24/25 01:23 06/24/25 01:23 06/24/25 01:23 06/24/25 01:23 06/24/25 01:23 06/24/25 01:23 Oxygen Flow Rate (L/min) 2 Oxygen Delivery Method Nasal Cannula Weight: 109.9 kg Body Mass Index (BMI) 37.9 Intake & Output: Intake and Output for Last 24 Hours 06/22/25 06/23/25 06/24/25 23:59 23:59 23:59 Intake Total 1000 / 1000 700 / 700 Balance 1000 / 1000 700 / 700 Lab / Micro Data 06/23/25 16:07 06/24/25 05:51 Labs: Laboratory Results - last 24 hr 06/23/25 14:39: WBC Cancelled, Corrected WBC Cancelled, RBC Cancelled, Hgb Cancelled, Hct Cancelled, MCV Cancelled, MCH Cancelled, MCHC Cancelled, RDW Std Deviation Cancelled, RDW Coeff of Terry Cancelled, Plt Count Cancelled, MPV Cancelled, Immature Gran % (Auto) Cancelled, Neut % (Auto) Cancelled, Lymph % (Auto) Cancelled, [place] % (Auto) Cancelled, Eos % (Auto) Cancelled, Baso % (Auto) Cancelled, Absolute Neuts (auto) Cancelled, Absolute Lymphs (auto) Cancelled, Total Counted Cancelled, Neutrophils % (Manual) Cancelled, Band Neutrophils % Cancelled, Lymphocytes % (Manual) Cancelled, Monocytes % (Manual) Cancelled, Eosinophils % (Manual) Cancelled, Basophils % (Manual) Cancelled, Metamyelocytes % Cancelled, Myelocytes % Cancelled, Promyelocytes % Cancelled, Blast Cells % Cancelled, Plasma Cell % (Manual) Cancelled, Other Cells % Cancelled, Nucleated RBC % Cancelled, Nucleated RBCs/100 WBC Cancelled, Differential Comment Cancelled, Diff Path Review Cancelled, Hypersegmented Neuts Cancelled, Atypical Lymphocytes Cancelled, Reactive Lymphocytes Cancelled, Smudge Cells Cancelled, Toxic Granulation Cancelled, Toxic Vacuolation Cancelled, Dohle Bodies Cancelled, Essie Rods Cancelled, Platelet Estimate Cancelled, Plt Morphology Comment Cancelled, RBC Morphology Cancelled 06/23/25 14:39: RBC Morphology Cancelled, Polychromasia Cancelled, Hypochromasia Cancelled, Basophilic Stippling Cancelled, Anisocytosis Cancelled, Microcytosis Cancelled, Macrocytosis Cancelled, Spherocytes Cancelled, Sickle Cells Cancelled, Target Cells Cancelled, Tear Drop Cells Cancelled, Ovalocytes Cancelled, Stomatocytes Cancelled, [place] Bodies Cancelled, [place] Cells Cancelled, Bite Cells Cancelled, Crenated Cell Cancelled, Acanthocytes (Spur) Cancelled, Rouleaux Cancelled, Schistocytes Cancelled, Sodium Cancelled, Potassium Cancelled, Chloride Cancelled, Carbon Dioxide Cancelled, Anion Gap Cancelled, BUN Cancelled, Creatinine Cancelled, Estim Creat Clear Calc Cancelled, Est GFR (MDRD) Non-Af Cancelled, BUN/Creatinine Ratio Cancelled, Glucose Cancelled, Calcium Cancelled 06/23/25 16:07: WBC 8.4, RBC 3.97 L, Hgb 12.0, Hct 40.2, MCV 101.3 H, MCH 30.2, MCHC 29.9 L, RDW Std Deviation 56.1 H, RDW Coeff of Terry 14.8 H, Plt Count 154, MPV 11.2, Immature Gran % (Auto) 1.000 H, Neut % (Auto) 78.9 H, Lymph % (Auto) 12.2 L, [place] % (Auto) 6.0, Eos % (Auto) 1.7, Baso % (Auto) 0.2, Absolute Neuts (auto) 6.6, Absolute Lymphs (auto) 1.02, Nucleated RBC % 0 06/23/25 16:40: Sodium 136, Potassium 5.5 H, Chloride 89 L, Carbon Dioxide 40.3 H, Anion Gap 6 L, BUN 65 H, Creatinine 1.79 H, Est GFR (MDRD) Non-Af 29 L, B UN/Creatinine Ratio 36.4 H, Glucose 107 H, Calcium 9.1, Total Bilirubin 0.26, Direct Bilirubin 0.13, AST 21, ALT 12, Alkaline Phosphatase 116 H, Total Protein 6.5, Albumin 3.8, Globulin 2.7 06/23/25 21:13: Urine Color Straw, Urine Clarity Clear, Urine pH 6.5, Ur Specific [place] 1.010, Urine Protein 15 H, Urine Glucose (UA) Normal, Urine Ketones Negative, Urine Occult Blood Negative, Urine Nitrite Negative, Urine Bilirubin Negative, Urine Urobilinogen Normal, Ur Leukocyte Esterase Negative, Urine RBC 0 SEEN, Urine WBC 0 SEEN, Ur Squamous Epith Cells 0-5 SEEN, Urine Bacteria RARE, Urine Mucus 0 SEEN 06/24/25 05:51: Sodium 138, Potassium 5.3 H, Chloride 95 L, Carbon Dioxide 36.5 H, Anion Gap 7, BUN 52 H, Creatinine 1.21 H, Estim Creat Clear Calc 50.53, Est GFR (MDRD) Non-Af 46 L, BUN/Creatinine Ratio 42.6 H, Glucose 116 H, Calcium 8.9, Magnesium 2.2 ABG Data ABG results: ABG 06/23/25 20:58 Specimen Type ART Sample Site R Radial pH 7.41 Bicarbonate Actual 46.2 H Total CO2 48 Base Excess 22 H O2 Saturation 88 L O2 % 2.0 ABG pCO2 72.5 H* ABG pO2 58 L Miguelangel Test Positive O2 Delivery Device Cannula Vent Mode Not entered Crit Call To/Read Back Yes Blood Gas Notified Whom Scherer Blood Gas Notified Time 20:59:37 Radiography Diagnostic Testing: Radiology Impression Chest X-Ray 06/23/25 20:37 IMPRESSION: Mild cardiomegaly and mild pulmonary vascular congestion. Reading Location: [facility] Hip/Pelvis X-Ray 06/23/25 20:37 IMPRESSION: No evidence of acute fracture or dislocation. Bilateral hip arthroplasties with intact hardware. Reading Location: [facility] Chest CTA 06/23/25 23:05 IMPRESSION: Small right pulmonary artery thromboembolism. Reading Location: [place] [address] Physical Exam Narrative GENERAL: cooperative HEENT: Atraumatic; normocephalic EYES; Anicteric, Normal Conjunctiva NECK; supple, normal thyroid, RESPIRATORY: Diminished to auscultation CARDIOVASCULAR: Regular S1 S2, GI: soft, normoactive bowel sounds, : No Renal angle tenderness; EXTREMITIES: No edema, no clubbing, MUSCULOSKELETAL: no muscle wasting NEURO: Awake; no lateralizing signs. SKIN: No Rash PSYCH; Flat affect Assessment & Plan Assessment/Plan (1) Metabolic alkalosis: (2) Chronic respiratory failure with hypoxia and hypercapnia: (3) Hyperkalemia: (4) Acute kidney injury: (5) Volume contraction from diuretics: (6) Pulmonary embolism: QUALIFIERS: Acute cor pulmonale presence: without acute cor pulmonale Chronicity: acute Pulmonary embolism type: other Qualified Code(s): I26.99 - Other pulmonary embolism without acute cor pulmonale PLAN: Plan Patient is a 75-year-old lady who presented with lightheadedness as well as shakiness.. Patient ABGs demonstrated acute hypercapnic respiratory failure. Admitted to a monitored bed for further management. CTA did make mention of an incidental small pulmonary embolism on the right side. 1. Acute on chronic hypoxic resp and hypercapnic respiratory failure ? Patient admitted to regular nursing floor. Workup did reveal presence of acute pulmonary embolism. Patient was placed on supplemental oxygen titrated to keep saturation greater than 90 2. Acute pulmonary embolism ? Patient started on apixaban 10 mg p.o. twice daily for 7 days with plans to switch to 5 mg twice daily. Echo ordered for subsequent 3. Chronic congestive heart failure with preserved ejection ? Patient remains compensated and assessment on admission was 1 of contraction metabolic alkalosis. 4. Depression with anxiety ? Patient was on Remeron as well as bupropion in addition to duloxetine 5. Restless leg syndrome ? Patient is on pramipexole 6. Hypertension ? Blood pressure controlled, home medications continued with dose adjustment as needed 7. Class II obesity with BMI of 38 ? Complicating care weight loss advised 8. Hyperkalemia ? Patient is on potassium sparing diuretic?Aldactone held repeat potassium levels ordered for a.m. 9. Chronic kidney disease stage III ? Kidney function at base 10. Peripheral neuropathy ? Patient is on gabapentin 11. Physical deconditioning ? Requested for PT OT eval and social media sr strategy manager to assist with discharge planning Charges/Coding Visit Charges Inpatient E&M: 11924 Subs Hosp L2
[2025-06-24] MEDS: buPROPion (XL) 150 MG TABLET.XL PO (09:11)
--- NOTE | 2025-06-24 11:18 | CASEMGMT ---
SW Assessment: Face to Face with pt for initial transition planning/care coordination assessment. SW introduced self and role at [facility], pt voices understanding and consents to assessment. Pt is A&O x4 and answers all questions appropriately at this time. Care providers, pharmacy, and demographics verified/updated. PCP: Kamar Grimes Specialists: Alex Marcelino Pharmacy: [facility] (mail order through insurance) Insurance: [facility] Dual Prescription Benefit: yes LNOK: Pattie (HCPOA) and Estee, daughters Living Arrangements: Pt lives in an apt with no steps in. Pt does not plan to return. Pt plans to return to [facility] with plans for AL in July Transportation: Pt has family to assist with transportation DME: Shower chair, cane, wheeled walker, rollator, grab bars, Oxygen through [employer] (2L) [facility] previously. Pt plans to return to [facility] until she can go to [facility]. Plan: [facility] vs [facility]. Pt reports that a Alena at [facility] was helping arrange AL. SW called and left a message for Alena. SW remains available to follow. GREER Chacko
--- NOTE | 2025-06-24 13:24 | CASEMGMT ---
Addendum entered by Fanny Gong 06/24/25 13:52: [facility] accepted and started precert. ANSHU remains available to follow. GREER Chacko Original Note: Social Work- spoke with jaren at [facility]. Jaren reports that pt needs a Direction Home assessment for AL waiver yet before being approved to admit to AL. ANSHU updated pt. Pt would like [facility] referral. ANSHU notified [facility] of referral request. ANSHU remains available to follow. GREER Chacko
--- NOTE | 2025-06-24 13:31 | CASEMGMT ---
Addendum entered by Comfort Harvey 06/24/25 13:48: [facility] accepted and will submit for precert. SW updated. Original Note: Discharge Planning Referral sent via [facility] to [facility]. Comfort Harvey DC Planning Asst.
[2025-06-24 21:24] VITALS: BP 146/87; PULSE 80; RESP 22; TEMP 36.7; O2SAT 97
[2025-06-24 21:25] VITALS: RESP 22
[2025-06-24] MEDS: MELATONIN 10 MG TABLET PO (21:33)
[2025-06-24] MEDS: Albuterol 2.5 MG/3 ML VIAL.NEB. INHALATION (22:03)
[2025-06-24 22:10] VITALS: PULSE 88; RESP 18; O2SAT 94
[2025-06-24 22:43] VITALS: PULSE 83
[2025-06-25] VITALS (10 sets, daily range): BP systolic 130–174; BP diastolic 65–101; PULSE 68–90; RESP 16–22; TEMP 36.3–36.9; O2SAT 95–98
[2025-06-25 04:23] LABS: Hematocrit 35.1 % (37-47); Hemoglobin 10.8 g/dL (12.0-15.0); Immature Granulocytes Count 0.050 X10^3/uL (0.0-0.0); Mean Corp Hgb Conc 30.8 g/dL (32-36); Mean Corpuscular Volume 97.8 fL (81-99); Mean Platelet Vol. 10.8 fl (6.2-12.0); NRBC Flagged by Analyzer 0 % (0-5); Platelet Count 141 K/mm3 (150-450); RBC Distribution Width CV 15.6 % (11.6-14.6); RBC Distribution Width SD 56.1 fl (35.1-43.9); Red Blood Count 3.59 M/mm3 (4.2-5.4); White Blood Count 6.1 K/mm3 (4.4-11.0)
[2025-06-25 06:12] LABS: Anion Gap 6 (7-18); BUN 43 mg/dL (4-19); BUN/Creat Ratio 40.8 RATIO (10-20); Calcium,Total 9.0 mg/dL (7.6-11.0); Carbon Dioxide 37.0 mmol/L (20.0-29.0); Chloride 98 mmol/L (96-106); Estimated Creatinine Clearance 57.68 ml/min (50-250); Glucose 104 mg/dL (70-99); Magnesium 2.2 mg/dL (1.5-2.2); Potassium 4.9 mmol/L (3.5-5.1)
--- NOTE | 2025-06-25 07:08 | PCM.PN.HOSP ---
Reason for Visit Chief Complaint: Generalized weakness and shaking of legs Subjective Subjective Patient seen reports uneventful night. Denies any further jittery feeling. Patient has been accepted for transfer to a half-way facility awaiting insurance pre-CERT Objective Data Objective Data Vital Signs: Vital Signs Temp Pulse Resp BP Pulse Ox O2 Del Method O2 Flow Rate 98.2 F 76 22 H 133/65 H 97 Nasal Cannula 2 06/25/25 03:37 06/25/25 03:37 06/25/25 03:42 06/25/25 03:37 06/25/25 03:37 06/25/25 03:42 06/25/25 03:42 Oxygen Flow Rate (L/min) 2 Oxygen Delivery Method Nasal Cannula Weight: 109.9 kg Body Mass Index (BMI) 37.9 Intake & Output: Intake and Output for Last 24 Hours 06/23/25 06/24/25 06/25/25 23:59 23:59 23:59 Intake Total 1000 / 1000 700 / 900 400 / 400 Output Total 500 / 500 Balance 1000 / 1000 200 / 400 400 / 400 Lab / Micro Data 06/25/25 03:50 06/25/25 03:50 Labs: Laboratory Results - last 24 hr 06/25/25 03:50: WBC 6.1, RBC 3.59 L, Hgb 10.8 L, Hct 35.1 L, MCV 97.8, MCH 30.1, MCHC 30.8 L, RDW Std Deviation 56.1 H, RDW Coeff of Terry 15.6 H, Plt Count 141 L, MPV 10.8, Immature Gran % (Auto) 0.800, Neut % (Auto) 52.9, Lymph % (Auto) 30.0, [place] % (Auto) 13.1 H, Eos % (Auto) 2.4, Baso % (Auto) 0.8, Absolute Neuts (auto) 3.2, Absolute Lymphs (auto) 1.84, Nucleated RBC % 0, Sodium 141, Potassium 4.9, Chloride 98, Carbon Dioxide 37.0 H, Anion Gap 6 L, BUN 43 H, Creatinine 1.06, Estim Creat Clear Calc 57.68, Est GFR (MDRD) Non-Af 54 L, BUN/Creatinine Ratio 40.8 H, Glucose 104 H, Calcium 9.0, Phosphorus 2.5 L, Magnesium 2.2 Physical Exam Narrative GENERAL: cooperative HEENT: Atraumatic; normocephalic EYES; Anicteric, Normal Conjunctiva NECK; supple, normal thyroid, RESPIRATORY: Diminished to auscultation CARDIOVASCULAR: Regular S1 S2, GI: soft, normoactive bowel sounds, : No Renal angle tenderness; EXTREMITIES: No edema, no clubbing, MUSCULOSKELETAL: no muscle wasting NEURO: Awake; no lateralizing signs. SKIN: No Rash PSYCH; Flat affect Assessment & Plan Assessment/Plan (1) Metabolic alkalosis: (2) Chronic respiratory failure with hypoxia and hypercapnia: (3) Hyperkalemia: (4) Acute kidney injury: (5) Volume contraction from diuretics: (6) Pulmonary embolism: QUALIFIERS: Acute cor pulmonale presence: without acute cor pulmonale Chronicity: acute Pulmonary embolism type: other Qualified Code(s): I26.99 - Other pulmonary embolism without acute cor pulmonale PLAN: Plan Patient is a 75-year-old lady who presented with lightheadedness as well as shakiness.. Patient ABGs demonstrated acute hypercapnic respiratory failure. Admitted to a monitored bed for further management. CTA did make mention of an incidental small pulmonary embolism on the right side. 1. Acute on chronic hypoxic resp and hypercapnic respiratory failure ? Patient admitted to regular nursing floor. Workup did reveal presence of acute pulmonary embolism. Patient was placed on supplemental oxygen titrated to keep saturation greater than 90 ? 08/26/2024; patient remains on 2 L of oxygen 2. Acute pulmonary embolism ? Patient started on apixaban 10 mg p.o. twice daily for 7 days with plans to switch to 5 mg twice daily. ? 06/25/2025; patient has tolerated apixaban well so far. Ordered limited 2D echo to assess for heart strain 3. Chronic congestive heart failure with preserved ejection ? Patient remains compensated and assessment on admission was 1 of contraction metabolic alkalosis. 4. Depression with anxiety ? Patient was on Remeron as well as bupropion in addition to duloxetine 5. Restless leg syndrome ? Patient is on pramipexole 6. Hypertension ? Blood pressure controlled, home medications continued with dose adjustment as needed 7. Class II obesity with BMI of 38 ? Complicating care weight loss advised 8. Hyperkalemia ? Patient is on potassium sparing diuretic?Aldactone held repeat potassium levels ordered for a.m. 9. Chronic kidney disease stage III ? Kidney function at base 10. Peripheral neuropathy ? Patient is on gabapentin 11. Physical deconditioning ? Requested for PT OT eval and social media marketing analyst to assist with discharge planning ? Patient has been accepted to half-way facility awaiting insurance pre-CERT prior to transfer Time spent in the patient's overall evaluation,decision-making process, review of diagnostic data, adjustment of management, discussion with other providers, nursing nursing and ancillary staff involved in patient's care documentation, 38 Minutes Charges/Coding Visit Charges Inpatient E&M: 80228 Subs Hosp L2
[2025-06-25] MEDS: APIXABAN 5 MG TABLET 10 MG PO ×2 (08:40→21:04)
[2025-06-25] MEDS: buPROPion (XL) 150 MG TABLET.XL PO (08:40)
--- NOTE | 2025-06-25 09:53 | ECHOL_ITS ---
Reason For Study Reason For Study: EMBOLI Procedure This was a limited 2D transthoracic echocardiogram. Exam performed portable in patient room. Left Ventricle Normal LV size. Borderline to mild left ventricular hypertrophy. The estimated ejection fraction is 70???75 %. Normal diastology for age. Right Ventricle Normal RV size. Normal systolic function. Atria The left and right atria are normal. Mitral Valve Mitral valve not well visualized. There is no mitral valve stenosis. Trivial mitral valve insufficiency. Tricuspid Valve Normal tricuspid valve. There is no tricuspid stenosis. Trivial tricuspid valve insufficiency. Aortic Valve Trisinus/trileaflet aortic valve. Mild diffuse aortic valve thickening. Mild diffuse aortic valve calcification. There is no aortic valve stenosis. No aortic valve insufficiency. Pulmonic Valve The pulmonic valve is not well visualized. There is no pulmonic valvular stenosis. Trivial pulmonic valve insufficiency. Great Vessels Normal sized IVC that collapses with respiration/sniff. Pericardium/Pleural Epicardial fat. No pericardial effusion. MMode/2D Measurements & Calculations LVIDd: 4.0 cm IVSd: 1.0 cm LAV(MOD- bp): 60.4 ml LVIDs: 2.8 cm LVPWd: 1.0 cm LAV(MOD- bp) Indexed: 27.5 ml/m2 FS: 29.4 % LAV(MOD- sp2): 45.5 ml LAV(MOD- sp4): 64.3 ml LVAd ap4: 23.4 cm2 LVAd ap2: 23.7 cm2 EDV(MOD- bp): 65.0 ml LVLd ap4: 7.1 cm LVLd ap2: 7.3 cm ESV(MOD- bp): 16.9 ml EDV(MOD-sp4): 63.6 ml EDV(MOD-sp2): 64.3 ml EF(MOD- bp): 73.9 % EDV(sp4-el): 65.8 ml EDV(sp2-el): 65.3 ml LVAs ap4: 9.9 cm2 LVAs ap2: 11.0 cm2 LVLs ap4: 5.7 cm LVLs ap2: 5.9 cm ESV(MOD-sp4): 16.3 ml ESV(MOD-sp2): 17.4 ml ESV(sp4-el): 14.7 ml ESV(sp2-el): 17.5 ml EF(MOD-sp4): 74.4 % EF(MOD-sp2): 72.9 % EF(sp4-el): 77.7 % SV(MOD-sp4): 47.4 ml SV(MOD-sp2): 46.9 ml SV(sp4- el): 51.1 ml SI(MOD-sp4): 21.6 ml/m2 SI(MOD-sp2): 21.4 ml/m2 TAPSE: 2.1 cm LA A4 area: 20.0 cm2 RA A4 area: 14.2 cm2 Time Measurements MV dec time: 0.26 sec Doppler Measurements & Calculations MV E max taqueria: 77.0 cm/sec Lat Peak E' Taqueria: 8.8 cm/sec Med Peak E' Taqueria: 9.0 cm/sec MV A max taqueria: 74.2 cm/sec E/E' lat: 8.8 E/E' med: 8.6 MV E/A: 1.0 MV dec slope: 292.4 cm/sec2 PA V2 max: 97.8 cm/sec ECHO/Echo, Limited Study Interpretation Summary The estimated ejection fraction is 70???75 %. Borderline to mild left ventricular hypertrophy. Normal diastology for age. Compared to prior study, there is no significant change. Ordering Physician: Abdirashid Menezes Referring Physician: Kamar Grimes Performed By: Estee Rodriguez RDCS
[2025-06-25] MEDS: MELATONIN 10 MG TABLET PO (21:03)
[2025-06-26 04:00] VITALS: BP 157/86; PULSE 84; RESP 16; TEMP 36.3; O2SAT 95
[2025-06-26 04:47] LABS: Hematocrit 37.1 % (37-47); Hemoglobin 11.4 g/dL (12.0-15.0); Immature Granulocytes Count 0.040 X10^3/uL (0.0-0.0); Mean Corp Hgb Conc 30.7 g/dL (32-36); Mean Corpuscular Volume 98.1 fL (81-99); Mean Platelet Vol. 10.7 fl (6.2-12.0); NRBC Flagged by Analyzer 0 % (0-5); Platelet Count 142 K/mm3 (150-450); RBC Distribution Width CV 15.4 % (11.6-14.6); RBC Distribution Width SD 55.8 fl (35.1-43.9); Red Blood Count 3.78 M/mm3 (4.2-5.4); White Blood Count 5.9 K/mm3 (4.4-11.0)
[2025-06-26 05:34] LABS: Anion Gap 8 (7-18); BUN 35 mg/dL (4-19); BUN/Creat Ratio 31.4 RATIO (10-20); Calcium,Total 9.2 mg/dL (7.6-11.0); Carbon Dioxide 33.3 mmol/L (20.0-29.0); Chloride 99 mmol/L (96-106); Estimated Creatinine Clearance 54.59 ml/min (50-250); Glucose 100 mg/dL (70-99); Potassium 4.5 mmol/L (3.5-5.1)
--- NOTE | 2025-06-26 07:43 | PN.HOSP_ITS ---
Reason for Visit Chief Complaint: Generalized weakness and shaking of legs Subjective Subjective Patient seen had complained of intermittent diarrhea the day prior. She did ask for Imodium however requested for stool samples to be sent prior to prescribing Imodium patient declined to give any stool samples. Seen this a.m. denies any further diarrhea. Objective Data Objective Data Vital Signs: Vital Signs Temp Pulse Resp BP Pulse Ox O2 Del Method O2 Flow Rate 97.4 F L 84 16 157/86 H 95 Nasal Cannula 2 06/26/25 04:00 06/26/25 04:00 06/26/25 04:00 06/26/25 04:00 06/26/25 04:00 06/26/25 04:00 06/26/25 04:00 Oxygen Flow Rate (L/min) 2 Oxygen Delivery Method Nasal Cannula Weight: 109.9 kg Body Mass Index (BMI) 37.9 Intake & Output: Intake and Output for Last 24 Hours 06/24/25 06/25/25 06/26/25 23:59 23:59 23:59 Intake Total 700 / 900 400 / 400 Output Total 500 / 500 Balance 200 / 400 400 / 400 Lab / Micro Data 06/26/25 04:22 06/26/25 04:22 Labs: Laboratory Results - last 24 hr 06/26/25 04:22: WBC 5.9, RBC 3.78 L, Hgb 11.4 L, Hct 37.1, MCV 98.1, MCH 30.2, M CHC 30.7 L, RDW Std Deviation 55.8 H, RDW Coeff of Terry 15.4 H, Plt Count 142 L, MPV 10.7, Immature Gran % (Auto) 0.700, Neut % (Auto) 52.3, Lymph % (Auto) 32.1, [place] % (Auto) 11.2 H, Eos % (Auto) 3.2, Baso % (Auto) 0.5, Absolute Neuts (auto) 3.1, Absolute Lymphs (auto) 1.89, Nucleated RBC % 0, Sodium 140, Potassium 4.5, Chloride 99, Carbon Dioxide 33.3 H, Anion Gap 8, BUN 35 H, Creatinine 1.12, Estim Creat Clear Calc 54.59, Est GFR (MDRD) Non-Af 51 L, BUN/Creatinine Ratio 31.4 H, Glucose 100 H, Calcium 9.2 Radiography Diagnostic Testing: Radiology Impression Echocardiogram 06/25/25 09:53 Interpretation Summary The estimated ejection fraction is 70???75 %. Borderline to mild left ventricular hypertrophy. Normal diastology for age. Compared to prior study, there is no significant change. Ordering Physician: Abdirashid Menezes Referring Physician: Kamar Grimes Performed By: Estee Rodriguez RDCS Physical Exam Narrative GENERAL: cooperative HEENT: Atraumatic; normocephalic EYES; Anicteric, Normal Conjunctiva NECK; supple, normal thyroid, RESPIRATORY: Diminished to auscultation CARDIOVASCULAR: Regular S1 S2, GI: soft, normoactive bowel sounds, : No Renal angle tenderness; EXTREMITIES: No edema, no clubbing, MUSCULOSKELETAL: no muscle wasting NEURO: Awake; no lateralizing signs. SKIN: No Rash PSYCH; Flat affect Assessment & Plan Assessment/Plan (1) Metabolic alkalosis: (2) Chronic respiratory failure with hypoxia and hypercapnia: (3) Hyperkalemia: (4) Acute kidney injury: (5) Volume contraction from diuretics: (6) Pulmonary embolism: QUALIFIERS: Acute cor pulmonale presence: without acute cor pulmonale Chronicity: acute Pulmonary embolism type: other Qualified Code(s): I26.99 - Other pulmonary embolism without acute cor pulmonale PLAN: Plan Patient is a 75-year-old lady who presented with lightheadedness as well as shakiness.. Patient ABGs demonstrated acute hypercapnic respiratory failure. Admitted to a monitored bed for further management. CTA did make mention of an incidental small pulmonary embolism on the right side. 1. Acute on chronic hypoxic resp and hypercapnic respiratory failure ? Patient admitted to regular nursing floor. Workup did reveal presence of acute pulmonary embolism. Patient was placed on supplemental oxygen titrated to keep saturation greater than 90 ? 08/26/2024; patient remains on 2 L of oxygen ? 06/26/2025; no change in patient oxygen requirement 2. Acute pulmonary embolism ? Patient started on apixaban 10 mg p.o. twice daily for 7 days with plans to switch to 5 mg twice daily. ? 06/25/2025; patient has tolerated apixaban well so far. Ordered limited 2D echo to assess for heart strain ? 06/26/2025; limited echo obtained demonstrated EF of 70 to 75% with borderline to mild left ventricular hypertrophy normal diastology for age no mention of right heart strain. 3. Chronic congestive heart failure with preserved ejection ? Patient remains compensated and assessment on admission was 1 of contraction metabolic alkalosis. 4. Depression with anxiety ? Patient was on Remeron as well as bupropion in addition to duloxetine 5. Restless leg syndrome ? Patient is on pramipexole 6. Hypertension ? Blood pressure controlled, home medications continued with dose adjustment as needed 7. Class II obesity with BMI of 38 ? Complicating care weight loss advised 8. Hyperkalemia ? Patient is on potassium sparing diuretic?Aldactone held repeat potassium levels ordered for a.m. 9. Chronic kidney disease stage III ? Kidney function at base 10. Peripheral neuropathy ? Patient is on gabapentin 11. Physical deconditioning ? Requested for PT OT eval and social work job titles to assist with discharge planning ? Patient has been accepted to shelter facility awaiting insurance pre- CERT prior to transfer Time spent in the patient's overall evaluation,decision-making process, review of diagnostic data, adjustment of management, discussion with other providers, nursing nursing and ancillary staff involved in patient's care documentation, 36 Minutes Charges/Coding Visit Charges Inpatient E&M: 88613 Subs Hosp L2
[2025-06-26 08:24] VITALS: BP 144/83; PULSE 87; RESP 16; TEMP 36.3; O2SAT 97
[2025-06-26] MEDS: buPROPion (XL) 150 MG TABLET.XL PO (08:27)
[2025-06-26] MEDS: APIXABAN 5 MG TABLET 10 MG PO ×2 (08:27→21:38)
[2025-06-26 14:26] VITALS: BP 150/89; PULSE 82; RESP 17; TEMP 36.3; O2SAT 98
[2025-06-26 20:25] VITALS: BP 144/89; PULSE 81; RESP 16; TEMP 36.7; O2SAT 97
[2025-06-26] MEDS: MELATONIN 10 MG TABLET PO (21:39)
[2025-06-27 02:00] VITALS: BP 139/75; PULSE 85; RESP 16; TEMP 36.8; O2SAT 96
[2025-06-27 04:01] LABS: Hematocrit 36.0 % (37-47); Hemoglobin 10.8 g/dL (12.0-15.0); Immature Granulocytes Count 0.040 X10^3/uL (0.0-0.0); Mean Corp Hgb Conc 30.0 g/dL (32-36); Mean Corpuscular Volume 99.4 fL (81-99); Mean Platelet Vol. 10.8 fl (6.2-12.0); NRBC Flagged by Analyzer 0 % (0-5); Platelet Count 153 K/mm3 (150-450); RBC Distribution Width CV 15.3 % (11.6-14.6); RBC Distribution Width SD 55.6 fl (35.1-43.9); Red Blood Count 3.62 M/mm3 (4.2-5.4); White Blood Count 6.7 K/mm3 (4.4-11.0)
[2025-06-27 04:38] LABS: Anion Gap 6 (7-18); BUN 31 mg/dL (4-19); BUN/Creat Ratio 26.9 RATIO (10-20); Calcium,Total 9.1 mg/dL (7.6-11.0); Carbon Dioxide 34.3 mmol/L (20.0-29.0); Chloride 99 mmol/L (96-106); Estimated Creatinine Clearance 53.63 ml/min (50-250); Glucose 90 mg/dL (70-99); Potassium 4.8 mmol/L (3.5-5.1)
--- NOTE | 2025-06-27 07:44 | PN.HOSP_ITS ---
Reason for Visit Chief Complaint: Generalized weakness and shaking of legs Objective Data Objective Data Vital Signs: Vital Signs Temp Pulse Resp BP Pulse Ox O2 Del Method O2 Flow Rate 98.2 F 85 16 139/75 H 96 Nasal Cannula 2 06/27/25 02:00 06/27/25 02:00 06/27/25 02:00 06/27/25 02:00 06/27/25 02:00 06/27/25 02:00 06/26/25 14:26 Oxygen Flow Rate (L/min) 2 Oxygen Delivery Method Nasal Cannula Weight: 109.9 kg Body Mass Index (BMI) 37.9 Intake & Output: Intake and Output for Last 24 Hours 06/25/25 06/26/25 06/27/25 23:59 23:59 23:59 Intake Total 400 / 400 700 / 700 Balance 400 / 400 700 / 700 Lab / Micro Data 06/27/25 03:24 06/27/25 03:24 Labs: Laboratory Results - last 24 hr 06/27/25 03:24: WBC 6.7, RBC 3.62 L, Hgb 10.8 L, Hct 36.0 L, MCV 99.4 H, MCH 29.8, MCHC 30.0 L, RDW Std Deviation 55.6 H, RDW Coeff of Terry 15.3 H, Plt Count 153, MPV 10.8, Immature Gran % (Auto) 0.600, Neut % (Auto) 58.6, Lymph % (Auto) 26.7, [place] % (Auto) 10.4 H, Eos % (Auto) 3.2, Baso % (Auto) 0.5, Absolute Neuts (auto) 3.9, Absolute Lymphs (auto) 1.78, Nucleated RBC % 0, Sodium 139, Potassium 4.8, Chloride 99, Carbon Dioxide 34.3 H, Anion Gap 6 L, BUN 31 H, Creatinine 1.14, Estim Creat Clear Calc 53.63, Est GFR (MDRD) Non-Af 50 L, B UN/Creatinine Ratio 26.9 H, Glucose 90, Calcium 9.1 Physical Exam Narrative GENERAL: cooperative HEENT: Atraumatic; normocephalic EYES; Anicteric, Normal Conjunctiva NECK; supple, normal thyroid, RESPIRATORY: Diminished to auscultation CARDIOVASCULAR: Regular S1 S2, GI: soft, normoactive bowel sounds, : No Renal angle tenderness; EXTREMITIES: No edema, no clubbing, MUSCULOSKELETAL: no muscle wasting NEURO: Awake; no lateralizing signs. SKIN: No Rash PSYCH; Flat affect Assessment & Plan Assessment/Plan (1) Metabolic alkalosis: (2) Chronic respiratory failure with hypoxia and hypercapnia: (3) Hyperkalemia: (4) Acute kidney injury: (5) Volume contraction from diuretics: (6) Pulmonary embolism: QUALIFIERS: Pulmonary embolism type: other Chronicity: acute A cute cor pulmonale presence: without acute cor pulmonale Qualified Code(s): I 26.99 - Other pulmonary embolism without acute cor pulmonale PLAN: Plan Patient is a 75-year-old lady who presented with lightheadedness as well as shakiness.. Patient ABGs demonstrated acute hypercapnic respiratory failure. Admitted to a monitored bed for further management. CTA did make mention of an incidental small pulmonary embolism on the right side. 1. Acute on chronic hypoxic resp and hypercapnic respiratory failure ? Patient admitted to regular nursing floor. Workup did reveal presence of acute pulmonary embolism. Patient was placed on supplemental oxygen titrated to keep saturation greater than 90 ? 08/26/2024; patient remains on 2 L of oxygen ? 06/26/2025; no change in patient oxygen requirement 2. Acute pulmonary embolism ? Patient started on apixaban 10 mg p.o. twice daily for 7 days with plans to switch to 5 mg twice daily. ? 06/25/2025; patient has tolerated apixaban well so far. Ordered limited 2D echo to assess for heart strain ? 06/26/2025; limited echo obtained demonstrated EF of 70 to 75% with borderline to mild left ventricular hypertrophy normal diastology for age no mention of right heart strain. 3. Chronic congestive heart failure with preserved ejection ? Patient remains compensated and assessment on admission was 1 of contraction metabolic alkalosis. 4. Depression with anxiety ? Patient was on Remeron as well as bupropion in addition to duloxetine 5. Restless leg syndrome ? Patient is on pramipexole 6. Hypertension ? Blood pressure controlled, home medications continued with dose adjustment as needed 7. Class II obesity with BMI of 38 ? Complicating care weight loss advised 8. Hyperkalemia ? Patient is on potassium sparing diuretic?Aldactone held repeat potassium levels ordered for a.m. 9. Chronic kidney disease stage III ? Kidney function at base 10. Peripheral neuropathy ? Patient is on gabapentin 11. Physical deconditioning ? Requested for PT OT eval and social studies department chair to assist with discharge planning ? Patient has been accepted to snf facility awaiting insurance pre- CERT prior to transfer Time spent in the patient's overall evaluation,decision-making process, review of diagnostic data, adjustment of management, discussion with other providers, nursing nursing and ancillary staff involved in patient's care documentation, 36 Minutes
[2025-06-27 08:00] VITALS: BP 132/75; PULSE 79; RESP 16; TEMP 36.6; O2SAT 98
[2025-06-27] MEDS: buPROPion (XL) 150 MG TABLET.XL PO (08:01)
[2025-06-27] MEDS: APIXABAN 5 MG TABLET 10 MG PO ×2 (08:02→20:28)
--- NOTE | 2025-06-27 08:02 | PN.HOSP_ITS ---
Reason for Visit Chief Complaint: Generalized weakness and shaking of legs Subjective Subjective Patient seen had an uneventful night. Awaiting insurance precertification prior to transfer to intermediate facility Objective Data Objective Data Vital Signs: Vital Signs Temp Pulse Resp BP Pulse Ox O2 Del Method O2 Flow Rate 97.9 F 79 16 132/75 H 98 Nasal Cannula 2 06/27/25 08:00 06/27/25 08:00 06/27/25 08:00 06/27/25 08:00 06/27/25 08:00 06/27/25 08:00 06/27/25 08:00 Oxygen Flow Rate (L/min) 2 Oxygen Delivery Method Nasal Cannula Weight: 109.9 kg Body Mass Index (BMI) 37.9 Intake & Output: Intake and Output for Last 24 Hours 06/25/25 06/26/25 06/27/25 23:59 23:59 23:59 Intake Total 400 / 400 700 / 700 Balance 400 / 400 700 / 700 Lab / Micro Data 06/27/25 03:24 06/27/25 03:24 Labs: Laboratory Results - last 24 hr 06/27/25 03:24: WBC 6.7, RBC 3.62 L, Hgb 10.8 L, Hct 36.0 L, MCV 99.4 H, MCH 29.8, MCHC 30.0 L, RDW Std Deviation 55.6 H, RDW Coeff of Terry 15.3 H, Plt Count 153, MPV 10.8, Immature Gran % (Auto) 0.600, Neut % (Auto) 58.6, Lymph % (Auto) 26.7, [place] % (Auto) 10.4 H, Eos % (Auto) 3.2, Baso % (Auto) 0.5, Absolute Neuts (auto) 3.9, Absolute Lymphs (auto) 1.78, Nucleated RBC % 0, Sodium 139, Potassium 4.8, Chloride 99, Carbon Dioxide 34.3 H, Anion Gap 6 L, BUN 31 H, Creatinine 1.14, Estim Creat Clear Calc 53.63, Est GFR (MDRD) Non-Af 50 L, B UN/Creatinine Ratio 26.9 H, Glucose 90, Calcium 9.1 Physical Exam Narrative GENERAL: cooperative HEENT: Atraumatic; normocephalic EYES; Anicteric, Normal Conjunctiva NECK; supple, normal thyroid, RESPIRATORY: Diminished to auscultation CARDIOVASCULAR: Regular S1 S2, GI: soft, normoactive bowel sounds, : No Renal angle tenderness; EXTREMITIES: No edema, no clubbing, MUSCULOSKELETAL: no muscle wasting NEURO: Awake; no lateralizing signs. SKIN: No Rash PSYCH; Flat affect Assessment & Plan Assessment/Plan (1) Metabolic alkalosis: (2) Chronic respiratory failure with hypoxia and hypercapnia: (3) Hyperkalemia: (4) Acute kidney injury: (5) Volume contraction from diuretics: (6) Pulmonary embolism: QUALIFIERS: Acute cor pulmonale presence: without acute cor pulmonale Chronicity: acute Pulmonary embolism type: other Qualified Code(s): I26.99 - Other pulmonary embolism without acute cor pulmonale PLAN: Plan Patient is a 75-year-old lady who presented with lightheadedness as well as shakiness.. Patient ABGs demonstrated acute hypercapnic respiratory failure. Admitted to a monitored bed for further management. CTA did make mention of an incidental small pulmonary embolism on the right side. 1. Acute on chronic hypoxic resp and hypercapnic respiratory failure ? Patient admitted to regular nursing floor. Workup did reveal presence of acute pulmonary embolism. Patient was placed on supplemental oxygen titrated to keep saturation greater than 90 ? 08/26/2024; patient remains on 2 L of oxygen ? 06/26/2025; no change in patient oxygen requirement ? 06/27/2025; patient oxygen requirement at baseline 2. Acute pulmonary embolism ? Patient started on apixaban 10 mg p.o. twice daily for 7 days with plans to switch to 5 mg twice daily. ? 06/25/2025; patient has tolerated apixaban well so far. Ordered limited 2D echo to assess for heart strain ? 06/26/2025; limited echo obtained demonstrated EF of 70 to 75% with borderline to mild left ventricular hypertrophy normal diastology for age no mention of right heart strain. 3. Chronic congestive heart failure with preserved ejection ? Patient remains compensated and assessment on admission was 1 of contraction metabolic alkalosis. 4. Depression with anxiety ? Patient was on Remeron as well as bupropion in addition to duloxetine 5. Restless leg syndrome ? Patient is on pramipexole 6. Hypertension ? Blood pressure controlled, home medications continued with dose adjustment as needed 7. Class II obesity with BMI of 38 ? Complicating care weight loss advised 8. Hyperkalemia ? Patient is on potassium sparing diuretic?Aldactone held repeat potassium levels ordered for a.m. 9. Chronic kidney disease stage III ? Kidney function at base 10. Peripheral neuropathy ? Patient is on gabapentin 11. Physical deconditioning ? Requested for PT OT eval and social work administrator to assist with discharge planning ? Patient has been accepted to intermediate facility awaiting insurance pre- CERT prior to transfer ? 06/27/2025; awaiting pre-CERT prior to transfer to intermediate facility Time spent in the patient's overall evaluation,decision-making process, review of diagnostic data, adjustment of management, discussion with other providers, nursing nursing and ancillary staff involved in patient's care documentation, 35 Minutes Charges/Coding Visit Charges Inpatient E&M: 53507 Subs Hosp L2
--- NOTE | 2025-06-27 08:45 | CASEMGMT ---
Discharge Planning Updates sent via [facility] to [facility]. Precert remains pending. Comfort Harvey DC Planning Asst.
[2025-06-27] MEDS: Lactobacillis Acidophilus 1 CAP PO ×2 (10:08→20:28)
--- NOTE | 2025-06-27 11:31 | CASEMGMT ---
Social Work- SW met with pt to offer support, check-in, and provide updates. Pt reports that she is doing well, reports staff are excellent and have taken care of anything she needs. Pt understanding that precert remains pending and agreeable to continued updates from staff. SW remains available to follow. Plan: VANIA; pend precert [facility] [place]
[2025-06-27 17:00] VITALS: BP 103/77; PULSE 70; RESP 17; TEMP 36.8; O2SAT 95
[2025-06-27 20:24] VITALS: BP 166/107; PULSE 93; RESP 20; TEMP 36.6; O2SAT 100
[2025-06-27] MEDS: MELATONIN 10 MG TABLET PO (20:28)
[2025-06-28 02:42] VITALS: BP 126/74; PULSE 72; RESP 18; TEMP 36.7; O2SAT 96
[2025-06-28 08:00] VITALS: BP 149/74; PULSE 84; RESP 18; TEMP 36.4; O2SAT 93
[2025-06-28] MEDS: Lactobacillis Acidophilus 1 CAP PO ×2 (08:08→20:36)
[2025-06-28] MEDS: buPROPion (XL) 150 MG TABLET.XL PO (08:09)
[2025-06-28] MEDS: APIXABAN 5 MG TABLET 10 MG PO ×2 (08:11→20:37)
--- NOTE | 2025-06-28 08:24 | PN.HOSP_ITS ---
Reason for Visit Chief Complaint: Generalized weakness and shaking of legs Subjective Subjective Patient seen uneventful evening. Still awaiting insurance pre-CERT for patient prior to transfer to prison facility Objective Data Objective Data Vital Signs: Vital Signs Temp Pulse Resp BP Pulse Ox O2 Del Method O2 Flow Rate 98.0 F 72 18 126/74 H 96 Nasal Cannula 2 06/28/25 02:42 06/28/25 02:42 06/28/25 02:42 06/28/25 02:42 06/28/25 02:42 06/28/25 08:02 06/28/25 08:02 Oxygen Flow Rate (L/min) 2 Oxygen Delivery Method Nasal Cannula Weight: 109.9 kg Body Mass Index (BMI) 37.9 Intake & Output: Intake and Output for Last 24 Hours 06/26/25 06/27/25 06/28/25 23:59 23:59 23:59 Intake Total 700 / 700 900 / 1050 250 / 250 Balance 700 / 700 900 / 1050 250 / 250 Lab / Micro Data 06/27/25 03:24 06/27/25 03:24 Physical Exam Narrative GENERAL: cooperative HEENT: Atraumatic; normocephalic EYES; Anicteric, Normal Conjunctiva NECK; supple, normal thyroid, RESPIRATORY: Diminished to auscultation CARDIOVASCULAR: Regular S1 S2, GI: soft, normoactive bowel sounds, : No Renal angle tenderness; EXTREMITIES: No edema, no clubbing, MUSCULOSKELETAL: no muscle wasting NEURO: Awake; no lateralizing signs. SKIN: No Rash PSYCH; Flat affect Assessment & Plan Assessment/Plan (1) Metabolic alkalosis: (2) Chronic respiratory failure with hypoxia and hypercapnia: (3) Hyperkalemia: (4) Acute kidney injury: (5) Volume contraction from diuretics: (6) Pulmonary embolism: QUALIFIERS: Pulmonary embolism type: other Chronicity: acute A cute cor pulmonale presence: without acute cor pulmonale Qualified Code(s): I 26.99 - Other pulmonary embolism without acute cor pulmonale PLAN: Plan Patient is a 75-year-old lady who presented with lightheadedness as well as shakiness.. Patient ABGs demonstrated acute hypercapnic respiratory failure. Admitted to a monitored bed for further management. CTA did make mention of an incidental small pulmonary embolism on the right side. 1. Acute on chronic hypoxic resp and hypercapnic respiratory failure ? Patient admitted to regular nursing floor. Workup did reveal presence of acute pulmonary embolism. Patient was placed on supplemental oxygen titrated to keep saturation greater than 90 ? 08/26/2024; patient remains on 2 L of oxygen ? 06/26/2025; no change in patient oxygen requirement ? 06/27/2025; patient oxygen requirement at baseline ? 06/28/2025; no change in patient clinical condition overnight 2. Acute pulmonary embolism ? Patient started on apixaban 10 mg p.o. twice daily for 7 days with plans to switch to 5 mg twice daily. ? 06/25/2025; patient has tolerated apixaban well so far. Ordered limited 2D echo to assess for heart strain ? 06/26/2025; limited echo obtained demonstrated EF of 70 to 75% with borderline to mild left ventricular hypertrophy normal diastology for age no mention of right heart strain. ? 06/28/2025; patient has tolerated apixaban well so far 3. Chronic congestive heart failure with preserved ejection ? Patient remains compensated and assessment on admission was 1 of contraction metabolic alkalosis. 4. Depression with anxiety ? Patient was on Remeron as well as bupropion in addition to duloxetine 5. Restless leg syndrome ? Patient is on pramipexole 6. Hypertension ? Blood pressure controlled, home medications continued with dose adjustment as needed 7. Class II obesity with BMI of 38 ? Complicating care weight loss advised 8. Hyperkalemia ? Patient is on potassium sparing diuretic?Aldactone held repeat potassium levels ordered for a.m. 9. Chronic kidney disease stage III ? Kidney function at base 10. Peripheral neuropathy ? Patient is on gabapentin 11. Physical deconditioning ? Requested for PT OT eval and delinquency prevention social worker to assist with discharge planning ? Patient has been accepted to prison facility awaiting insurance pre- CERT prior to transfer ? 06/27/2025; awaiting pre-CERT prior to transfer to prison facility Time spent in the patient's overall evaluation,decision-making process, review of diagnostic data, adjustment of management, discussion with other providers, nursing nursing and ancillary staff involved in patient's care documentation, 36 minutes Charges/Coding Visit Charges Inpatient E&M: 45324 Subs Hosp L2
--- NOTE | 2025-06-28 09:33 | CASEMGMT ---
Addendum entered by Marianela Newby 06/28/25 15:08: Social Work Dr. Menezes did do the peer to peer and pt was denied a skilled stay, was told pt needs [facility] [employer] care. The next step will be to submit for a level of care for pt through her Medicaid, we will need to verify she has the correct type of Medicaid first. SW to follow up on Monday. ROLY Malcolm Original Note: Social Work Pt's insurance is requesting a peer to peer at this time. SW spoke w/pt, explained the situation, that insurance may deny her to go to SNF. Pt states she cannot go home, she needs help with all ADLS. She states she has Medicaid. SW explained if the insurance does deny we can go through Medicaid for a level of care. SW explained that we will see what insurance says, SW will speak w/physician, and we will go from there, but the plan would not be to send pt home at this time. Pt states she is actually supposed to go to the [facility] at [facility] once a bed is available. SW spoke w/physician, he states pt will not be approved as she does not have a skillable need. SW will wait for insurance's final decision and if pt is denied, we will pursue a level of care through her Medicaid. ROLY Malcolm
[2025-06-28 13:20] VITALS: BP 106/70; PULSE 95; RESP 18; TEMP 36.6; O2SAT 98
[2025-06-28] MEDS: Albuterol 2.5 MG/3 ML VIAL.NEB. INHALATION (13:34)
[2025-06-28 13:48] VITALS: PULSE 78; RESP 18
[2025-06-28 16:19] VITALS: BP 136/96; PULSE 97; RESP 18; TEMP 36.6; O2SAT 96
[2025-06-28 20:32] VITALS: BP 119/72; PULSE 93; RESP 18; TEMP 36.7; O2SAT 92
[2025-06-28] MEDS: MELATONIN 10 MG TABLET PO (20:37)
[2025-06-29 03:32] VITALS: BP 137/89; PULSE 89; RESP 16; TEMP 36.7; O2SAT 100
[2025-06-29 07:14] LABS: Hematocrit 34.8 % (37-47); Hemoglobin 10.9 g/dL (12.0-15.0); Immature Granulocytes Count 0.040 X10^3/uL (0.0-0.0); Mean Corp Hgb Conc 31.3 g/dL (32-36); Mean Corpuscular Volume 98.0 fL (81-99); Mean Platelet Vol. 10.5 fl (6.2-12.0); NRBC Flagged by Analyzer 0 % (0-5); Platelet Count 139 K/mm3 (150-450); RBC Distribution Width CV 15.2 % (11.6-14.6); RBC Distribution Width SD 55.4 fl (35.1-43.9); Red Blood Count 3.55 M/mm3 (4.2-5.4); White Blood Count 5.8 K/mm3 (4.4-11.0)
[2025-06-29 07:43] LABS: Anion Gap 5 (7-18); BUN 37 mg/dL (4-19); BUN/Creat Ratio 30.2 RATIO (10-20); Calcium,Total 9.2 mg/dL (7.6-11.0); Carbon Dioxide 35.2 mmol/L (20.0-29.0); Chloride 100 mmol/L (96-106); Estimated Creatinine Clearance 50.11 ml/min (50-250); Glucose 92 mg/dL (70-99); Magnesium 1.7 mg/dL (1.5-2.2); Potassium 5.2 mmol/L (3.5-5.1)
[2025-06-29 07:48] VITALS: BP 136/79; PULSE 78; RESP 18; TEMP 36.6; O2SAT 100
[2025-06-29] MEDS: APIXABAN 5 MG TABLET 10 MG PO ×2 (09:51→21:38)
[2025-06-29] MEDS: Lactobacillis Acidophilus 1 CAP PO ×2 (09:51→21:39)
[2025-06-29] MEDS: buPROPion (XL) 150 MG TABLET.XL PO (09:51)
--- NOTE | 2025-06-29 13:22 | PN_ITS ---
Subjective Subjective Patient seen and examined with her nurse by her bedside. Shet had no other complaints. Review of systems otherwise negative. She is for EGD tomorrow. She has remained hemodynamically stable. Potassium is elevated at 5.2 today. Objective Data Objective Data Vital Signs: Vital Signs Temp Pulse Resp BP Pulse Ox O2 Del Method O2 Flow Rate 97.9 F 78 18 136/79 H 100 Nasal Cannula 2 06/29/25 07:48 06/29/25 07:48 06/29/25 07:48 06/29/25 07:48 06/29/25 07:48 06/29/25 07:50 06/29/25 11:55 Oxygen Flow Rate (L/min) 2 Oxygen Delivery Method Nasal Cannula Weight: 242 lb 4.608 oz Body Mass Index (BMI) 37.9 Intake & Output: Intake and Output for Last 24 Hours 06/27/25 06/28/25 06/29/25 23:59 23:59 23:59 Intake Total 900 / 1050 850 / 850 450 / 450 Balance 900 / 1050 850 / 850 450 / 450 Lab / Micro Data 06/29/25 07:00 06/29/25 07:00 Labs: Laboratory Results - last 24 hr 06/29/25 07:00: WBC 5.8, RBC 3.55 L, Hgb 10.9 L, Hct 34.8 L, MCV 98.0, MCH 30.7, MCHC 31.3 L, RDW Std Deviation 55.4 H, RDW Coeff of Terry 15.2 H, Plt Count 139 L, MPV 10.5, Immature Gran % (Auto) 0.700, Neut % (Auto) 54.7, Lymph % (Auto) 29.5, Steele % (Auto) 11.3 H, Eos % (Auto) 3.3, Baso % (Auto) 0.5, Absolute Neuts (auto) 3.2, Absolute Lymphs (auto) 1.72, Nucleated RBC % 0, Sodium 140, Potassium 5.2 H , Chloride 100, Carbon Dioxide 35.2 H, Anion Gap 5 L, BUN 37 H, Creatinine 1.22 H, Estim Creat Clear Calc 50.11, Est GFR (MDRD) Non-Af 46 L, BUN/Creatinine Ratio 30.2 H, Glucose 92, Calcium 9.2, Phosphorus 4.1, Magnesium 1.7 Physical Exam Const alert, oriented x3 and no apparent distress General Appearance: cooperative HEENT normocephalic, head/scalp atraumatic, moist oral mucous membranes and oropharynx normal Eyes EOMs intact bilaterally Neck supple and no JVD Lymph Lymphatic: no lymphedema noted Resp normal respiratory effort, normal air movement and clear to auscultation bilaterally Cardio regular rate, regular rhythm, S1 normal heart sound and S2 normal heart sound GI normal to inspection, nondistended, normoactive bowel sounds, soft to palpation and non-tender Extremity normal capillary refill and no clubbing, cyanosis or edema Skin General Skin Exam: no breakdown Neuro no focal motor deficits, no sensory deficits noted and deep tendon reflexes 2+ bilaterally Motor Exam: general weakness Psych thought process normal, cooperative and affect normal Appearance: appropriate Assessment & Plan Assessment/Plan (1) Pulmonary embolism: QUALIFIERS: Pulmonary embolism type: other Chronicity: acute A cute cor pulmonale presence: without acute cor pulmonale Qualified Code(s): I 26.99 - Other pulmonary embolism without acute cor pulmonale PLAN: Plan #Acute on chronic hypoxic and hypercapnic respiratory failure due to PE * Due to pulmonary embolism. On 2 L of oxygen. On Eliquis. 2D echo showed EF of 70 to 75% with borderline to mild left ventricular hypertrophy * #Heart failure with preserved ejection fraction: Patient currently stable. #Depression and anxiety: On Remeron, bupropion and duloxetine #Restless leg syndrome: Pramipexole #Hyperkalemia: Potassium is 5.2. Will give Kayexalate and monitor. Hold any medications that will cause hyperkalemia. Hold Aldactone #Hypertension: On carvedilol and losartan 2. Obesity: BMI is 37.9. Complicates acute care, expected recovery and prognosis. #CKD stage III: Creatinine at baseline. Will monitor. #History of peripheral neuropathy: On gabapentin #Debility and weakness: PT OT on board. For placement pending pre-CERT Charges/Coding Visit Charges Inpatient E&M: 00640 Subs Hosp L2
[2025-06-29 13:44] VITALS: BP 113/57; PULSE 86; RESP 18; TEMP 36.6; O2SAT 94
[2025-06-29 19:44] VITALS: BP 142/82; PULSE 97; RESP 18; TEMP 36.6; O2SAT 98
[2025-06-29] MEDS: 0.9% Saline Lock 10 ML Syringe IV (19:52)
[2025-06-29] MEDS: MELATONIN 10 MG TABLET PO (21:38)
[2025-06-30 02:25] VITALS: BP 101/59; PULSE 74; RESP 16; TEMP 36.4; O2SAT 95
[2025-06-30 05:43] LABS: Hematocrit 33.9 % (37-47); Hemoglobin 10.5 g/dL (12.0-15.0); Immature Granulocytes Count 0.040 X10^3/uL (0.0-0.0); Mean Corp Hgb Conc 31.0 g/dL (32-36); Mean Corpuscular Volume 98.3 fL (81-99); Mean Platelet Vol. 10.5 fl (6.2-12.0); NRBC Flagged by Analyzer 0 % (0-5); Platelet Count 130 K/mm3 (150-450); RBC Distribution Width CV 15.2 % (11.6-14.6); RBC Distribution Width SD 54.7 fl (35.1-43.9); Red Blood Count 3.45 M/mm3 (4.2-5.4); White Blood Count 5.5 K/mm3 (4.4-11.0)
[2025-06-30 06:20] LABS: Anion Gap 5 (7-18); BUN 40 mg/dL (4-19); BUN/Creat Ratio 38.4 RATIO (10-20); Calcium,Total 9.3 mg/dL (7.6-11.0); Carbon Dioxide 34.8 mmol/L (20.0-29.0); Chloride 100 mmol/L (96-106); Estimated Creatinine Clearance 58.79 ml/min (50-250); Glucose 94 mg/dL (70-99); Potassium 4.7 mmol/L (3.5-5.1)
[2025-06-30 08:37] VITALS: BP 123/74; PULSE 80; RESP 18; TEMP 36.6; O2SAT 94
[2025-06-30] MEDS: Lactobacillis Acidophilus 1 CAP PO (08:42)
[2025-06-30] MEDS: APIXABAN 5 MG TABLET 10 MG PO (08:43)
[2025-06-30] MEDS: buPROPion (XL) 150 MG TABLET.XL PO (08:43)
[2025-06-30] MEDS: Albuterol 2.5 MG/3 ML VIAL.NEB. INHALATION (09:11)
[2025-06-30 09:12] VITALS: PULSE 76; RESP 16
--- NOTE | 2025-06-30 10:09 | CASEMGMT ---
Discharge Planning Updates sent via [facility] to [facility] with note that is submitting for intermediate [facility] loc. Comfort Harvey DC Planning Asst.
--- NOTE | 2025-06-30 11:00 | TREXTCAR_ITS ---
Diet Diet Order/Speech Therapy: INPATIENT Hospital Diet / Speech Therapy Order(s) 06/27/25 13:19 Diet: Cardiac - Heart Healthy Routine Orders/Code Status Enema Type: Fleetz Enema Frequency: Daily PRN Suppository Frequency: Daily PRN DC O2, CPAP, BIPAP needs Home O2 Discharge instructions: Yes Type of respiratory needs?: Oxygen Oxygen frequency: Continuous Continuous oxygen liters per minute: 2 Wound(s) Right Knee: Wound Type: Abrasion Therapies Weight Bearing: Weight bearing as tolerated Physical Therapy: Eval and Treat Occupational Therapy: Eval and Treat Problem/Diagnosis (1) Pulmonary embolism: Status: Acute Code(s): I26.99 - Other pulmonary embolism without acute cor pulmonale Plan #Acute on chronic hypoxic and hypercapnic respiratory failure due to PE * Due to pulmonary embolism. On 2 L of oxygen. On Eliquis. 2D echo showed EF of 70 to 75% with borderline to mild left ventricular hypertrophy * #Heart failure with preserved ejection fraction: Patient currently stable. #Depression and anxiety: On Remeron, bupropion and duloxetine #Restless leg syndrome: Pramipexole #Hyperkalemia: Potassium is 5.2. Will give Kayexalate and monitor. Hold any medications that will cause hyperkalemia. Hold Aldactone #Hypertension: On carvedilol and losartan 2. Obesity: BMI is 37.9. Complicates acute care, expected recovery and prognosis. #CKD stage III: Creatinine at baseline. Will monitor. #History of peripheral neuropathy: On gabapentin #Debility and weakness: PT OT on board. For placement pending pre-CERT Allergies/Procedures Done in Hospital Allergies Penicillins Allergy (Verified 06/23/25 13:58) Anaphylaxis Procedures: 2-D Echocardiogram Type of Care/Length of Stay Estimated LOS: Convalescent Care Less Than 30 days Type of Care Needed: Skilled Rehab Potential: Fair Prognosis: Fair Additional Orders/Day of Discharge Day of Discharge: 06/30/25 Dietary and Speech Recommendations Dietitian Recommendations/Changes: Will change diet to Cardiac to help manage medical conditions. Will continue to follow and monitor for changes in pt nutritional status and make rec / provide diet education as indicated. Discharge Plan Admission Admit Date/Time: 06/24/25 00:09 Primary Reason for Your Visit: Hypoxia, PE Attending Provider: Otilia Hernandez Primary Care Provider: Grimes,Kamar Consulting Providers: Emi Valerio; Abdirashid Menezes Instructions Patient Instructions: Pulmonary Embolism Dc Discharge Orders/Prescriptions Prescriptions: New Janneth DVT-PE Treat 30D Start 5 mg (74 tabs) tablets,dose pack 5 mg PO UD Qty: 74 0RF Rx Instructions: take 10mg (2 tabs) twice daily till 07/01/2025, then continue with 5mg (one tablet) twice daily. Continued ondansetron HCl 4 mg tablet 4 mg PO Q8 PRN (Reason: nausea and vomiting) Adult 50 Plus Probiotic 4 billion cell capsule 4,000 mmu cells PO QDAY Rx Instructions: administer with a meal doxycycline monohydrate 100 mg capsule 100 mg PO BID gabapentin 300 mg capsule 600 mg PO QHS losartan 50 MG tablet 50 mg PO BID Patient Comments: BLOOD PRESSURE melatonin 5 MG tablet 10 mg PO QHS Patient Comments: SLEEP bupropion HCl 300 MG tablet extended release 24 hr 150 mg PO DAILY mirtazapine 15 MG tablet 15 mg PO QHS spironolactone 50 mg tablet 50 mg PO DAILY pramipexole 1 mg tablet 1 mg PO QHS albuterol sulfate 90 mcg/actuation HFA aerosol inhaler 2 inh inhalation Q4H PRN (Reason: shortness of breath or wheezing) aspirin 81 mg Tablet,Chewable 81 mg PO DAILY furosemide 20 mg tablet 20 mg PO DAILY duloxetine [Cymbalta] 30 mg capsule,delayed release(DR/EC) 30 mg PO DAILY loperamide 2 mg Capsule 2 mg PO Q2H PRN PRN (Reason: DIARRHEA) Qty: 0 0RF pramipexole 0.5 mg tablet 0.5 mg PO DINNER OXYGEN - Supplemental ([facility] INFORMATIONAL USE ONLY) Patient Comments: DME: [employer] 2 lpm NC continuous use, per CM note and patient. 3L with excertion carvedilol 3.125 mg Tablet 3.125 mg PO BID Qty: 0 0RF Referrals / Follow Up: Kamar Grimes MD [Primary Care Provider, Family Practice] - Within 1 Week Disposition Disposition (needs filled in before D/C Order can be placed): Home, Self Care (1) Pulmonary embolism Qualifiers: Pulmonary embolism type: other Chronicity: acute Acute cor pulmonale presence: without acute cor pulmonale Qualified Code(s): I26.99 - Other pulmonary embolism without acute cor pulmonale
--- NOTE | 2025-06-30 11:01 | PCM.DC.SUM ---
Providers Date of Admission: 06/24/25 Date of Discharge: 06/30/25 Primary Care Physician: Dr. Kamar Grimes MD Reason For Visit: WEAKNESS Diagnosis Discharge Diagnosis (1) Pulmonary embolism: Status: Acute Code(s): I26.99 - Other pulmonary embolism without acute cor pulmonale Qualifiers: Acute cor pulmonale presence: without acute cor pulmonale Chronicity: acute Pulmonary embolism type: other Qualified Code(s): I26.99 - Other pulmonary embolism without acute cor pulmonale Plan #Acute on chronic hypoxic and hypercapnic respiratory failure due to PE Due to pulmonary embolism. On 2 L of oxygen. On Eliquis. 2D echo showed EF of 70 to 75% with borderline to mild left ventricular hypertrophy #Heart failure with preserved ejection fraction: Patient currently stable. #Depression and anxiety: On Remeron, bupropion and duloxetine #Restless leg syndrome: Pramipexole #Hyperkalemia: Potassium is 5.2. Will give Kayexalate and monitor. Hold any medications that will cause hyperkalemia. Hold Aldactone #Hypertension: On carvedilol and losartan 2. Obesity: BMI is 37.9. Complicates acute care, expected recovery and prognosis. #CKD stage III: Creatinine at baseline. Will monitor. #History of peripheral neuropathy: On gabapentin #Debility and weakness: PT OT on board. For placement pending pre-CERT Medications at Discharge Home Medications losartan 50 mg tablet 50 mg PO BID BP 09/19/14 melatonin 5 mg tablet 10 mg PO QHS INSOMNIA 09/19/14 bupropion HCl 300 mg 24 hr tablet, extended release 150 mg PO DAILY DEPRESSION 06/11/20 mirtazapine 15 mg tablet 15 mg PO QHS INSOMNIA 06/24/20 duloxetine 30 mg capsule,delayed release (Cymbalta) 30 mg PO DAILY DEPRESSION 09/11/24 loperamide 2 mg capsule 2 mg PO Q2H PRN PRN DIARRHEA #0 caps 09/17/24 albuterol sulfate 90 mcg/actuation aerosol inhaler 2 inh inhalation Q4H PRN shortness of breath or wheezing 03/18/25 pramipexole 1 mg tablet 1 mg PO QHS restless leg 03/18/25 spironolactone 50 mg tablet 50 mg PO DAILY diuretic 03/18/25 lactobacillus combination no.9 4 billion cell capsule (Adult 50 Plus Probiotic) 4,000 mmu cells PO QDAY GI health 04/16/25 ondansetron HCl 4 mg tablet 4 mg PO Q8 PRN nausea and vomiting 04/16/25 pramipexole 0.5 mg tablet 0.5 mg PO DINNER RLS 04/16/25 OXYGEN - Supplemental ([facility] INFORMATIONAL USE ONLY) hypoxia 04/21/25 carvedilol 3.125 mg tablet 3.125 mg PO BID #0 tabs 04/23/25 doxycycline monohydrate 100 mg capsule 100 mg PO BID shoulder infection 06/06/25 gabapentin 300 mg capsule 600 mg PO QHS neuropathy 06/06/25 aspirin 81 mg chewable tablet 81 mg PO DAILY blood thinner 06/23/25 furosemide 20 mg tablet 20 mg PO DAILY diuretic 06/23/25 apixaban 5 mg (74 tabs) tablets in a dose pack (Eliquis DVT-PE Treat 30D Start) 5 mg PO UD #74 tabs 06/30/25 Hospital Course Operations None Procedures None Summary of Care Provided Minutes Spent on Discharge: 45 Hospital Course: Patient is a 75-year-old female with past medical history as outlined was under through the ED on 06/24/2025 with complaint of generalized weakness and inability to ambulate. Patient will 2 L of oxygen usually and denied any worsening shortness of breath or cough or any other symptoms. Review of systems otherwise negative. On admission pCO2 was 72 which was higher than her baseline. Creatinine was 1.79 it was concern for contraction alkalosis as she was on Lasix and Aldactone. CTA of the chest done showed evidence of right main pulmonary artery PE. She was therefore admitted and managed for weakness and debility due to PE. She was started on therapeutic dose of Eliquis. She had 2D echo which showed EF of 70 to 75% with borderline to mild left ventricular hypertrophy. Hospital course was complicated by mild hyperkalemia with potassium being 5.2. She was given Kayexalate and this trended downwards. Aldactone was held but this was resumed on admission and patient is to have repeat BMP to be monitoring her potassium. She was deemed as needing skilled care. She was therefore discharged residential home on 06/30/2025 to complete a 7-day course of 10 mg twice daily of Eliquis and then to continue with 5 mg twice daily. She is to follow-up with her primary care doctor within 1 to 2 weeks. Patient seen and examined prior to discharge. She had no active complaints. Review of systems otherwise negative. Labs and vitals reviewed. Home medication reviewed and reconciled. Physical Exam Const alert, oriented x3 and no apparent distress General Appearance: cooperative HEENT normocephalic, head/scalp atraumatic, hearing grossly normal bilaterally, moist oral mucous membranes and oropharynx normal Mouth: oral and palatal mucosa normal Eyes EOMs intact bilaterally and conjunctivae normal; Negative for no scleral icterus Neck supple and no JVD Lymph Lymphatic: no lymphedema noted Resp Resp Narrative: mildly diminished breath sounds bibasally, no wheezes or crackles. On room air. Cardio regular rate, regular rhythm, S1 normal heart sound, S2 normal heart sound and no murmurs GI normal to inspection, nondistended, normoactive bowel sounds, soft to palpation and non-tender Extremity normal capillary refill, no joint enlargement, no clubbing, cyanosis or edema and no pedal edema Skin no rashes or lesions noted General Skin Exam: no breakdown Neuro oriented x3, moves all extremities, no focal motor deficits, no sensory deficits noted and deep tendon reflexes 2+ bilaterally Motor Exam: general weakness Psych thought process normal, cooperative and affect normal Appearance: appropriate Weight / BMI Weight Weight: 242 lb 4.608 oz Body Mass Index (BMI) 37.9 ABG / Lab / Microbiology Data 06/30/25 05:20 06/30/25 05:20 Laboratory: Laboratory Results - last 24 hr 06/30/25 05:20: WBC 5.5, RBC 3.45 L, Hgb 10.5 L, Hct 33.9 L, MCV 98.3, MCH 30.4, MCHC 31.0 L, RDW Std Deviation 54.7 H, RDW Coeff of Terry 15.2 H, Plt Count 130 L, MPV 10.5, Immature Gran % (Auto) 0.700, Neut % (Auto) 54.2, Lymph % (Auto) 30.2, Bent % (Auto) 11.1 H, Eos % (Auto) 3.1, Baso % (Auto) 0.7, Absolute Neuts (auto) 3.0, Absolute Lymphs (auto) 1.66, Nucleated RBC % 0, Sodium 140, Potassium 4.7, Chloride 100, Carbon Dioxide 34.8 H, Anion Gap 5 L, BUN 40 H, Creatinine 1.04, Estim Creat Clear Calc 58.79, Est GFR (MDRD) Non-Af 56 L, BUN/Creatinine Ratio 38.4 H, Glucose 94, Calcium 9.3 D/C Instructions Discharge Activity: Return to Normal Activity Call your doctor if you observe: Fever of 101 or Higher, Shortness of breath, Dizziness, Swelling in the ankles and Chest pain DC O2, CPAP, BIPAP Needs Home O2 Discharge instructions: Yes Type of respiratory needs?: Oxygen Oxygen frequency: Continuous Continuous oxygen liters per minute: 2 DC home with Oxygen: Yes Home O2 MD Review: I have reviewed the oxygen testing, and the patient qualifies for home oxygen equipment and portability. The patient is mobile in the home and the community. Patient's Goals Of Care - F/U Goals Reviewed Goals of care reviewed with patient: Yes - No change Meaningful Use Info Meaningful Use Meaningful Use Diagnoses (Choose all that apply): VTE VTE Anticoag overlap given w/in hospital stay or rx'd at dc?: Yes Pt receive overlap for 5 days?: No Reason overlap not ordered, prescribed, or given for 5 days: Treatment Not Indicated Discharge Plan Admission Admit Date/Time: 06/24/25 00:09 Primary Reason for Your Visit: Hypoxia, PE Attending Provider: Otilia Hernandez Primary Care Provider: Kamar Grimes Consulting Providers: Emi Valerio; Abdirashid Menezes Instructions Patient Instructions: Pulmonary Embolism Dc Discharge Orders/Prescriptions Prescriptions: New Eliquis DVT-PE Treat 30D Start 5 mg (74 tabs) tablets,dose pack 5 mg PO UD Qty: 74 0RF Rx Instructions: take 10mg (2 tabs) twice daily till 07/01/2025, then continue with 5mg (one tablet) twice daily. Continued ondansetron HCl 4 mg tablet 4 mg PO Q8 PRN (Reason: nausea and vomiting) Adult 50 Plus Probiotic 4 billion cell capsule 4,000 mmu cells PO QDAY Rx Instructions: administer with a meal doxycycline monohydrate 100 mg capsule 100 mg PO BID gabapentin 300 mg capsule 600 mg PO QHS losartan 50 MG tablet 50 mg PO BID Patient Comments: BLOOD PRESSURE melatonin 5 MG tablet 10 mg PO QHS Patient Comments: SLEEP bupropion HCl 300 MG tablet extended release 24 hr 150 mg PO DAILY mirtazapine 15 MG tablet 15 mg PO QHS spironolactone 50 mg tablet 50 mg PO DAILY pramipexole 1 mg tablet 1 mg PO QHS albuterol sulfate 90 mcg/actuation HFA aerosol inhaler 2 inh inhalation Q4H PRN (Reason: shortness of breath or wheezing) aspirin 81 mg Tablet,Chewable 81 mg PO DAILY furosemide 20 mg tablet 20 mg PO DAILY duloxetine [Cymbalta] 30 mg capsule,delayed release(DR/EC) 30 mg PO DAILY loperamide 2 mg Capsule 2 mg PO Q2H PRN PRN (Reason: DIARRHEA) Qty: 0 0RF pramipexole 0.5 mg tablet 0.5 mg PO DINNER OXYGEN - Supplemental ([facility] INFORMATIONAL USE ONLY) Patient Comments: DME: [employer] 2 lpm NC continuous use, per CM note and patient. 3L with excertion carvedilol 3.125 mg Tablet 3.125 mg PO BID Qty: 0 0RF Referrals / Follow Up: Kamar Grimes MD [Primary Care Provider, Family Practice] - Within 1 Week Disposition Disposition (needs filled in before D/C Order can be placed): Home, Self Care Charges/Coding Visit Charges Inpatient E&M: 99221 Disch Hosp >30min
--- NOTE | 2025-06-30 11:06 | PN_ITS ---
Subjective Subjective Patient seen and examined. She had no active complaints. Her nurse was by her bedside. Review of systems is otherwise negative. She is awaiting placement. Objective Data Objective Data Vital Signs: Vital Signs Temp Pulse Resp BP Pulse Ox O2 Del Method O2 Flow Rate 97.9 F 76 16 123/74 H 94 Room Air 2 06/30/25 08:37 06/30/25 09:12 06/30/25 09:12 06/30/25 08:37 06/30/25 08:37 06/30/25 08:37 06/30/25 08:00 Oxygen Flow Rate (L/min) 2 Oxygen Delivery Method Room Air Weight: 242 lb 4.608 oz Body Mass Index (BMI) 37.9 Intake & Output: Intake and Output for Last 24 Hours 06/28/25 06/29/25 06/30/25 23:59 23:59 23:59 Intake Total 850 / 850 750 / 1050 500 / 500 Balance 850 / 850 750 / 1050 500 / 500 Lab / Micro Data 06/30/25 05:20 06/30/25 05:20 Labs: Laboratory Results - last 24 hr 06/30/25 05:20: WBC 5.5, RBC 3.45 L, Hgb 10.5 L, Hct 33.9 L, MCV 98.3, MCH 30.4, MCHC 31.0 L, RDW Std Deviation 54.7 H, RDW Coeff of Terry 15.2 H, Plt Count 130 L, MPV 10.5, Immature Gran % (Auto) 0.700, Neut % (Auto) 54.2, Lymph % (Auto) 30.2, [place] % (Auto) 11.1 H, Eos % (Auto) 3.1, Baso % (Auto) 0.7, Absolute Neuts (auto) 3.0, Absolute Lymphs (auto) 1.66, Nucleated RBC % 0, Sodium 140, Potassium 4.7, Chloride 100, Carbon Dioxide 34.8 H, Anion Gap 5 L, BUN 40 H, Creatinine 1.04, Estim Creat Clear Calc 58.79, Est GFR (MDRD) Non-Af 56 L, BUN/Creatinine Ratio 38.4 H, Glucose 94, Calcium 9.3 Physical Exam Const alert, oriented x3 and no apparent distress General Appearance: cooperative HEENT normocephalic, head/scalp atraumatic, moist oral mucous membranes and oropharynx normal Eyes EOMs intact bilaterally; Negative for no scleral icterus Neck supple and no JVD Lymph Lymphatic: no lymphedema noted Resp Resp Narrative: mildly diminished breath sounds bibasally, no wheezes or crackles. On room air. Cardio regular rate, regular rhythm, S1 normal heart sound, S2 normal heart sound and no murmurs GI normal to inspection, nondistended, normoactive bowel sounds, soft to palpation and non-tender Extremity normal capillary refill, no joint enlargement, no clubbing, cyanosis or edema and no pedal edema Skin no rashes or lesions noted General Skin Exam: no breakdown Neuro oriented x3, moves all extremities, no focal motor deficits, no sensory deficits noted and deep tendon reflexes 2+ bilaterally Motor Exam: general weakness Psych thought process normal, cooperative and affect normal Appearance: appropriate Assessment & Plan Assessment/Plan (1) Pulmonary embolism: QUALIFIERS: Pulmonary embolism type: other Chronicity: acute A cute cor pulmonale presence: without acute cor pulmonale Qualified Code(s): I 26.99 - Other pulmonary embolism without acute cor pulmonale PLAN: Plan #Acute on chronic hypoxic and hypercapnic respiratory failure due to PE * Due to pulmonary embolism. Now on room air * On Eliquis. 2D echo showed EF of 70 to 75% with borderline to mild left ventricular hypertrophy * #Heart failure with preserved ejection fraction: Patient currently stable. #Depression and anxiety: On Remeron, bupropion and duloxetine #Restless leg syndrome: Pramipexole #Hyperkalemia: resolved. Potassium is 4.7 Hold Aldactone #Hypertension: On carvedilol and losartan 2. Obesity: BMI is 37.9. Complicates acute care, expected recovery and prognosis. #CKD stage III: Creatinine at baseline. Will monitor. #History of peripheral neuropathy: On gabapentin #Debility and weakness: PT OT on board. For placement pending pre-CERT Charges/Coding Visit Charges Inpatient E&M: 87073 Subs Hosp L2
--- NOTE | 2025-06-30 11:11 | CASEMGMT ---
Addendum entered by Fanny Gong 06/30/25 13:46: SW received LOC results. Pt has been approved for intermediate LOC. DCA notified. SW remains available to follow. Plan: SWCC; intermediate level of care GREER Chacko Original Note: Social Work- SW submitted for [facility] level of care due to being declined for precert. DCA notified. ANSHU remains available to follow. GREER Chacko
--- NOTE | 2025-06-30 12:14 | PHA.DC.MC.R ---
Pharmacy [facility] [place] Counseling Pharmacy Service has performed discharge medication reconciliation and counseling for this patient. 1. APIXABAN 10MG PO BID THRU 07/01, THEN 5MG PO BID The patient's discharge medication list was reviewed for discrepancies and discrepancies were resolved. The patient was counseled on the following discharge medications and changes in medications for homegoing were reviewed. The Reason for Use, instructions for use, and potential side effects were reviewed for all new medications. The patient's questions regarding all of their medications were answered. The patient was able to verbally demonstrate an understanding of their discharge medications. Medications at Discharge Home Medications losartan 50 mg tablet 50 mg PO BID BP 09/19/14 melatonin 5 mg tablet 10 mg PO QHS INSOMNIA 09/19/14 bupropion HCl 300 mg 24 hr tablet, extended release 150 mg PO DAILY DEPRESSION 06/11/20 mirtazapine 15 mg tablet 15 mg PO QHS INSOMNIA 06/24/20 duloxetine 30 mg capsule,delayed release (Cymbalta) 30 mg PO DAILY DEPRESSION 09/11/24 loperamide 2 mg capsule 2 mg PO Q2H PRN PRN DIARRHEA #0 caps 09/17/24 albuterol sulfate 90 mcg/actuation aerosol inhaler 2 inh inhalation Q4H PRN shortness of breath or wheezing 03/18/25 pramipexole 1 mg tablet 1 mg PO QHS restless leg 03/18/25 spironolactone 50 mg tablet 50 mg PO DAILY diuretic 03/18/25 lactobacillus combination no.9 4 billion cell capsule (Adult 50 Plus Probiotic) 4,000 mmu cells PO QDAY GI health 04/16/25 ondansetron HCl 4 mg tablet 4 mg PO Q8 PRN nausea and vomiting 04/16/25 pramipexole 0.5 mg tablet 0.5 mg PO DINNER RLS 04/16/25 OXYGEN - Supplemental ([facility] INFORMATIONAL USE ONLY) hypoxia 04/21/25 carvedilol 3.125 mg tablet 3.125 mg PO BID #0 tabs 04/23/25 doxycycline monohydrate 100 mg capsule 100 mg PO BID shoulder infection 06/06/25 gabapentin 300 mg capsule 600 mg PO QHS neuropathy 06/06/25 aspirin 81 mg chewable tablet 81 mg PO DAILY blood thinner 06/23/25 furosemide 20 mg tablet 20 mg PO DAILY diuretic 06/23/25 apixaban 5 mg (74 tabs) tablets in a dose pack (Taecanet DVT-PE Treat 30D Start) 5 mg PO UD #74 tabs 06/30/25
[2025-06-30 14:00] VITALS: BP 128/68; PULSE 102; RESP 18; TEMP 36.3; O2SAT 95
--- NOTE | 2025-06-30 14:35 | CASEMGMT ---
Social Work Pt previously denied precert by [facility]. [facility] LOC has been obtained.? Physician updated and pt is ready for discharge today.? [facility] convalescent form completed in [facility]. SW met with pt and they are agreeable to discharge plan as stated above.? DCA and bedside nurse notified of discharge. DCA to complete all final arrangements and notifications. Disposition:SWCC, intermediate level of care GREER Chacko
--- NOTE | 2025-06-30 14:55 | CASEMGMT ---
Discharge Planning Discharge orders, signed med list, loc, and transport time sent via [facility] to [facility]. Physicians will transport pt by wheelchair at 3p. Nursing, SW, and pt updated. left for pts granddaughter (Pattie). Comfort Harvey DC Planning Asst.
--- NOTE | 2025-06-30 15:09 | NURSING ---
Nurse to nurse report given to Di at [facility]. Notified Di of pick-up time of 1510.
== END 2025-06-30 15:18 | disposition skilled nursing facility (03) | DRG 175 ==
LOC: ED 23:03 → MS3 06-24 00:32
PROVIDERS: Internal Medicine; Admitting Provider Internal Medicine; Emergency Provider Emergency Medicine; PCP Family Medicine; Visit Provider Student in an Organized Health Care Education/Training Program
DX: I26.99 Other pulmonary embolism without acute cor pulmonale (principal); J96.22 Acute and chronic respiratory failure with hypercapnia; J96.21 Acute and chronic respiratory failure with hypoxia; E87.3 Alkalosis; N17.9 Acute kidney failure, unspecified; I50.32 Chronic diastolic (congestive) heart failure; I13.0 Hypertensive heart and chronic kidney disease with heart failure and stage 1 through stage 4 chronic kidney disease, or unspecified chronic kidney disease; N18.30 Chronic kidney disease, stage 3 unspecified; G25.81 Restless legs syndrome; Z68.38 Body mass index [BMI] 38.0-38.9, adult; E87.5 Hyperkalemia; E78.00 Pure hypercholesterolemia, unspecified; F41.8 Other specified anxiety disorders; G62.9 Polyneuropathy, unspecified; Z87.891 Personal history of nicotine dependence; Z79.899 Other long term (current) drug therapy; E66.812 Obesity, class 2; R53.81 Other malaise; Z79.82 Long term (current) use of aspirin; Z96.611 Presence of right artificial shoulder joint; Z98.41 Cataract extraction status, right eye; Z98.42 Cataract extraction status, left eye; Z90.49 Acquired absence of other specified parts of digestive tract
CPT/HCPCS: 36415; 36600; 71046; 71275; 73502; 80048; 80076; 81001; 82803; 83735; 84100; 85025; 93005; 93308; 94640; 97110; 97116; 97162; 97166; 97530; 97535; 99285; Q9957; Q9967; A4216

== ENCOUNTER → 2025-07-01 05:00 | Outpatient (REF) | payer MEDICARE, MEDICAID, SELFPAY ==
[2025-07-01 08:21] LABS: Hematocrit 34.9 % (37-47); Hemoglobin 10.8 g/dL (12.0-15.0); Immature Granulocytes Count 0.040 X10^3/uL (0.0-0.0); Mean Corp Hgb Conc 30.9 g/dL (32-36); Mean Corpuscular Volume 96.9 fL (81-99); Mean Platelet Vol. 11.0 fl (6.2-12.0); NRBC Flagged by Analyzer 0 % (0-5); Platelet Count 152 K/mm3 (150-450); RBC Distribution Width CV 15.1 % (11.6-14.6); RBC Distribution Width SD 54.4 fl (35.1-43.9); Red Blood Count 3.60 M/mm3 (4.2-5.4); White Blood Count 6.7 K/mm3 (4.4-11.0)
[2025-07-01 08:58] LABS: Anion Gap 8 (7-18); BUN 41 mg/dL (4-19); BUN/Creat Ratio 36.3 RATIO (10-20); Calcium,Total 9.5 mg/dL (7.6-11.0); Carbon Dioxide 33.3 mmol/L (20.0-29.0); Chloride 99 mmol/L (96-106); Glucose 86 mg/dL (70-99); Potassium 4.8 mmol/L (3.5-5.1)
== END ==
LOC: OLS.SW 05:00
PROVIDERS: PCP Family Medicine; Visit Provider Internal Medicine
DX: J96.11 Chronic respiratory failure with hypoxia (principal); N17.9 Acute kidney failure, unspecified; Z02.2 Encounter for examination for admission to residential institution
CPT/HCPCS: 36415; 80048; 85025